=== PATIENT | female | born 1965 | race Caucasian/White ===

== ENCOUNTER 2016-10-26 09:55 | Day surgery (SDC) | payer OTHER ==
[2016-10-24 16:00] VITALS: BMI 26.1
[2016-10-26 10:10] VITALS: RESP 16
[2016-10-26 10:11] LABS: Glucose,Whole Blood 108 mg/dL (75-99)
[2016-10-26] MEDS ORDERED: LIDOCAINE 1% 20 ML VIAL (10MG/ML) FOR IV START INTRADERMA ONE (10:11)
[2016-10-26] MEDS ORDERED: LACTATED RINGERS 1,000 ML IV ONE (10:11)
[2016-10-26] MEDS ORDERED: IOHEXOL 180 MG/ML 1 ML ML ONE (10:33)
[2016-10-26] MEDS ORDERED: MIDAZOLAM 2 MG/2 ML VIAL ONE (10:33)
[2016-10-26] MEDS ORDERED: fentaNYL (PF) 50 MCG/ML 2 ML AMP ONE (10:33)
[2016-10-26] MEDS ORDERED: BUPIVACAINE (PF) 0.25% 30 ML VIAL ONE (10:33)
[2016-10-26] MEDS ORDERED: TRIAMCINOLONE ACETONIDE 40 MG/ML 1 ML VIAL ONE (10:33)
--- NOTE | 2016-10-26 10:53 | P.PCN ---
Date of Procedure: 10/26/16 Preoperative Diagnosis: The lumbar degenerative disc disease Lumbar postlaminectomy pain syndrome Lumbar neural foraminal stenosis Lumbar spondylosis without myelopathy Postoperative Diagnosis: Same as above Procedure(s) Performed: Lumbar epidural steroid injection under fluoroscopic guidance Anesthesia: MAC Surgeon: Dileep Fofana Pathology: none sent Condition: stable Disposition: PACU Description of Procedure: The patient was seen in preoperative holding area consent was obtained. The patient has more lower back pain pain and that's why I decided to do lumbar epidural steroid injection because of history of lumbar postlaminectomy pain syndrome lumbar degenerative disc disease and lumbar neural foraminal stenosis. The patient was brought into the procedure room and placed in prone position with one pillow beneath the abdomen to reduce lumbar lordosis. Skin was prepped with Betadine 3 and draped in a sterile manner. Lidocaine 1% was used to numb the skin up at the target point that was at the L4 5 level in the left paramedian approach. I used a 20-gauge 3-1/2 inch Touhy epidural needle with gaiv-tv-lwzhwmvihz to air to identify the epidural space. There was positive gvlw-wi-zwsaxqyexk to air at about 7.5 cm from skin negative aspiration for any CSF or blood I then injected 1 mL of Omnipaque which showed typical epidurogram with AP and lateral his fluoroscopy. After that I injected 80 mg of Kenalog +2 MLS of Marcaine 0.25% +4 mL of preservative free normal saline to a total volume of 7 MLS in epidural space. Patient tolerated procedure well.
[2016-10-26] MEDS ORDERED: IV FLUID CONTINUATION 1,000 ML IV ONE (11:01)
[2016-10-26 11:15] VITALS: BP 125/81; PULSE 79
[2016-10-26 11:25] LABS: Glucose,Whole Blood 116 mg/dL (75-99)
--- NOTE | 2016-10-26 11:55 | FL ---
Fluoroscopy HISTORY: Pain 6 seconds fluoroscopy time supplied to the referring clinician. 2 intraoperative C-arm images docume nt the procedure. See dictated report from anesthesia.
== END 2016-10-26 11:33 | disposition home or self-care (01) ==
LOC: ORPAIN 09:55
PROVIDERS: ATTEND Anesthesiology
DX: M51.36 Other intervertebral disc degeneration, lumbar region (principal); M47.816 Spondylosis without myelopathy or radiculopathy, lumbar region; M99.73 Connective tissue and disc stenosis of intervertebral foramina of lumbar region; M96.1 Postlaminectomy syndrome, not elsewhere classified; I10 Essential (primary) hypertension; E11.9 Type 2 diabetes mellitus without complications; Z88.2 Allergy status to sulfonamides
CPT/HCPCS: 62323; J2250; J3301; Q9965; J3010

== ENCOUNTER → 2017-01-18 | Outpatient (CLI) | payer OTHER ==
[2017-01-18 12:17] VITALS: BP 114/69; PULSE 102; RESP 14; TEMP 98.7
--- NOTE | 2017-01-19 07:56 | P.CONS ---
History of Present Illness - Reason for Consult Consult date: 01/18/17 - History of Present Illness This is follow visit for this 51 years old female with a chronic history of severe low back pain, most with lumbar degenerative disc disease and lumbar spondylosis, patient had poorly controlled diabetes, and she is currently complaining of increased low back pain with radiation to the lower extremities, and she is currently on medications Lyrica 150 3 times a day, methadone 5 mg twice a day and [place] 10/325 every 6 hours, she denies any side effect of the medication she denies any excessive drowsiness sleepiness and she reported current medication is not helping enough, she denies any change in the bowel movement or urination, no fever or night sweats, no motor or sensory deficits Past Medical History Past Medical History: COPD, Diabetes Mellitus, Fibromyalgia, GERD/Reflux, Hypertension, Osteoarthritis (OA), Thyroid Disorder Additional Past Medical History / Comment(s): NEUROPATHY BILATERAL FEET, - DEGENERATIVE DISC DISEASE NECK AND LOWER BACK, hiatal hernia, pt states she does not have high lipids-on mevacor as a preventative. History of Any Multi-Drug Resistant Organisms: MRSA Year Discovered:: 05/2016 MDRO Source:: rt great toe Past Surgical History: Adenoidectomy, Back Surgery, Bladder Surgery, Hysterectomy, Orthopedic Surgery, Tonsillectomy, Tubal Ligation Additional Past Surgical History / Comment(s): Debridement R foot, PICC line/ later removed, bladder suspension, exploratory laparotomy, rt great toe amputation, pins both feet, rt cataract Past Anesthesia/Blood Transfusion Reactions: No Reported Reaction Additional Past Anesthesia/Blood Transfusion Reaction / Comm: . Past Psychological History: No Psychological Hx Reported Additional Psychological History / Comment(s): . Smoking Status: Current every day smoker Past Alcohol Use History: None Reported Additional Past Alcohol Use History / Comment(s): SMOKER SINCE 1983-10/10 PPD Past Drug Use History: None Reported - Past Family History Mother Family Medical History: No Reported History Additional Family Medical History / Comment(s): Mother has back problems. She is 73 yrs old. Father Additional Family Medical History / Comment(s): at 26yrs old--accident at work Medications and Allergies Home Medications Medication Instructions Recorded Confirmed Type Ergocalciferol (Vitamin D2) 50,000 unit PO FR 02/07/14 01/18/17 History [Drisdol] Ipratropium [place] [Atrovent Hfa] 2 puff INHALATION Q6H PRN 02/07/14 01/18/17 History Loratadine-Pseudoeph 10-240 mg 1 tab PO DAILY 02/07/14 01/18/17 History [Claritin-D 24 Hour] Losartan/Hydrochlorothiazide 1 tab PO DAILY 02/07/14 01/18/17 History [Losartan-Hctz 100-25 mg Tab] Lovastatin [Mevacor] 20 mg PO HS 02/07/14 01/18/17 History Montelukast [Singulair] 10 mg PO HS 02/07/14 01/18/17 History busPIRone HCL [Buspar] 15 mg PO BID 02/07/14 01/18/17 History Insulin Glulisine [Apidra] 1 dose SQ DIRECTED PRN 06/04/14 01/18/17 History Levothyroxine Sodium [Levoxyl] 150 mcg PO DAILY 12/08/14 01/18/17 History Omeprazole [PriLOSEC] 20 mg PO AC-BRKFST 12/08/14 01/18/17 History Insulin Glargine [Lantus] 35 unit SQ 06/05/15 01/18/17 History Multivit-Min/Iron Fum/Folic AC 1 tab PO DAILY 09/18/15 01/18/17 History [Etxgk-Jpopkbk-Wmraryyp Tablet] Zinc 50 mg PO DAILY 09/18/15 01/18/17 History metFORMIN HCL [Glucophage] 250 mg PO QA 07/06/16 01/18/17 History Allergies Allergy/AdvReac Type Severity Reaction Status Date / Time Sulfa (Sulfonamide Allergy Rash/Hives Verified 01/18/17 12:07 Antibiotics) Physical Exam Vitals: Vital Signs Temp Pulse Resp BP Pulse Ox 01/18/17 12:11 98.7 F 102 H 14 114/69 99 Physical Examinations : 1-Constitutiona : Cooperative , not in acute distress . 2-HEENT : nech ; supple , no Lymphadenopathy , no Thyromegaly , normal thyroid size . eyes : no ptosis , no icterus, no photophobia . ENT : normal of hearing , normal oropharynx , no Thrush . 3- Respiratory : Chest clear to auscultations Bilaterally , no wheezing , no Rhonchi . 4- Cardiovascular : regular rate and rhythem , S1 , S2 , no S3 , no S4. 5- Gastrointestinal : abdomen soft no tenderness , bowel sounds positive all four quadrents , no organomegally . 6- Genitourinary : Defferred . 7- neurologic : Cranial nerve II to XII intact , no focal neurological deffecit . 8-psychatric : alert , oriented X 3 , appropriate affect , intact judgment and insight . 9-Lymphatic : no Lymphadenopathy . 10- musculoskeltal : exams of the cervical spine = normal motor stregnth in the upper extremities bilaterally . exams of the Lumber spine = normal moter stegnth lower extremities ,thigh and legs .5/5 deep tendon reflexes : normal Knee Jerk , normal ankle Jerk . positive lumber facet Loading Test strait leg raising test positive at 30 degree , RT ,LT , Fabere test positive RT and positive LT . Assessment and Plan Plan: Assessment and plan = - Chronic low back pain secondary to lumbar degenerative disc disease , lumbar spondylosis with facet arthropathy without myelopathy , -chronic and current use of high-risk medication (Opioids). The patient was counseled about risk of opioid use, psychological risk associated with opioids discussed with the patient, body mass index and exercise. Patient signed the narcotic agreement , and was orally counseled not to overuse , abuse , divert, or sell medications ,and take them as prescribed only , and the patient was counseled against driving and while you are using the narcotic medication also not to use alcohol or any illicit drugs and the patient verbalized understanding that lack of compliance and could result in failure to renew narcotics prescriptions and possible discharge from the clinic - diagnoses, prognosis, and treatment options including but not limited to physical therapy, surgical interventions, interventional therapies and medication management including narcotics and adjuvant medication were discussed with the patient and all questions answered to the patient's satisfaction. -medication refile =1-lyrica 150 mg 3 times a day 2-methadone 5 mg twice a day 3-[place] 10/325 every 6 hours -procedure= referred patient to have MRI of the lumbar spine, reevaluated ,if there is any new etiology causing her symptoms
== END | disposition home or self-care (01) ==
LOC: PNWHC3 11:49
PROVIDERS: ATTEND Specialist
DX: M51.36 Other intervertebral disc degeneration, lumbar region (principal); M47.816 Spondylosis without myelopathy or radiculopathy, lumbar region; M46.96 Unspecified inflammatory spondylopathy, lumbar region; J44.9 Chronic obstructive pulmonary disease, unspecified; E11.9 Type 2 diabetes mellitus without complications; K21.9 Gastro-esophageal reflux disease without esophagitis; I10 Essential (primary) hypertension; M79.7 Fibromyalgia; F17.200 Nicotine dependence, unspecified, uncomplicated; Z79.899 Other long term (current) drug therapy; Z79.4 Long term (current) use of insulin; Z79.891 Long term (current) use of opiate analgesic
CPT/HCPCS: 99211

== ENCOUNTER → 2017-01-30 | Outpatient (CLI) | payer OTHER ==
--- NOTE | 2017-01-30 20:34 | MR ---
EXAMINATION TYPE: MR lumbar spine wo con DATE OF EXAM: 01/30/2017 7:39 PM COMPARISON: NONE HISTORY: LBP S/P fall 20 years ago, surgery 2004. Herniated disc and spondylosis per order. TECHNIQUE: Multiplanar, multisequence imaging of the lumbar spine is performed without IV contrast. FINDINGS: Sagittal images of the lumbar spine show vertebral body heights and alignment to appear sat isfactory. There is multilevel disc desiccation. There is advanced disc space narrowing L5-S1 level. There is mild disc space narrowing L4-L5 level there is moderate to advanced disc space narrowing wit h moderate spurring anterior T12-L1 level. Multilevel posterior disc herniations are seen on sagittal images effacing anterior thecal sac most prominent at L4-L5 and L5-S1 levels. The conus medullaris i s normal in position and signal ending at superior L1 vertebral body level. There is some heterogeneo us diminished T1 and increased T2 signal consistent with Modic type I degenerative change involving a nterior T12-L1 endplates and L5-S1 endplates. Mild to moderate multilevel anterior spurring is presen t. There is hemangioma involving the left inferior T1 vertebra on sagittal image 8. Axial images at the T12-L1 level shows mild to moderate broad disc bulge with left lateral disc protr usion component. There is mild effacement anterior thecal sac on axial image 28. Bilateral neural for malissa are patent. Axial images at the L1-L2 level show mild broad disc bulge minimally effacing the anterior thecal sac . Bilateral neural foramina are patent. Axial images at L2-L3 level show mild broad disc bulge with left lateral disc protrusion component. T here is mild effacement anterior thecal sac. Mild facet degenerative changes are present bilaterally at this level mildly effacing posterior lateral thecal sac. Bilateral neural foramina remain patent. Axial images at L3-L4 level show mild broad disc bulge mildly effacing anterior thecal sac. There is mild facet degenerative changes and ligamentum flavum hypertrophy. Bilateral neural foramina remain p atent. Axial images at L4-L5 level show moderate to severe facet degenerative changes and ligamentum flavum hypertrophy with some effacement the posterior lateral thecal sac, right greater than left on axial i mage 8. There is moderate broad-based posterior disc protrusion effacing anterior thecal sac. There i s moderate to severe right and mild to moderate left-sided neural foraminal narrowing. Encroachment o n right L4 nerve is suspected on sagittal image 13. Axial images at L5-S1 level show moderate facet degenerative changes bilaterally, left greater than r ight. There is broad disc bulge seen. There is mild effacement anterior thecal sac on axial image 3. There is severe left-sided and moderate right-sided neural foraminal narrowing with encroachment on l eft L5 nerve suspected on sagittal image 5 and 6. Paraspinal muscle bulk is fairly well preserved. IMPRESSION: Multilevel degenerative changes in the lumbar spine most prominent at L4-L5 and L5-S1 lev els as detailed above. There is moderate to severe right-sided neural foraminal narrowing L4-L5 level with suspected encroachment on right L4 nerve and severe left-sided neural foraminal narrowing L5-S1 level with encroachment on left L5 nerve.
== END | disposition home or self-care (01) ==
LOC: RADMRIMAIN 18:52
PROVIDERS: ATTEND Specialist
DX: M51.26 Other intervertebral disc displacement, lumbar region (principal); M47.16 Other spondylosis with myelopathy, lumbar region; M48.07 Spinal stenosis, lumbosacral region
CPT/HCPCS: 72148

== ENCOUNTER → 2017-02-15 | Outpatient (CLI) | payer OTHER ==
[2017-02-15 14:13] VITALS: BP 117/69; PULSE 102; RESP 18
--- NOTE | 2017-02-16 15:01 | P.PN ---
Subjective This is follow-up visit for this patient with a history of severe and chronic low back pain secondary to lumbar degenerative disc diseases , lumbar spondylosis with facet arthropathy, she is complaining of increased the low back pain, and patient had MRI of the lumbar spine recently and she is back, to discuss the results of the MRI of the lumbar spine denies, any motor or sensory deficit ,she denies any changes in the bowel movements or urination and she has no motor or sensory deficit, and is currently on pain medications 1-methadone 5 mg twice a day 2-norco 10/325 every 6 hours 3- lyrica 150 mg every 8 hours Patient denies any side effects of the medication, denies excessive drowsiness or sleepiness, denies suicidal ideation, and reports that the current pain medication is NOT helping To control the pain and improve activity of daily living Patient denies any motor or sensory deficit , patient denies any fever or night sweats, denies any change in the bowel movements or urination Physical Examinations : 1-Constitutiona : Cooperative , not in acute distress . 2-HEENT : nech ; supple , no Lymphadenopathy , no Thyromegaly , normal thyroid size . eyes : no ptosis , no icterus, no photophobia . ENT : normal of hearing , normal oropharynx , no Thrush . 3- Respiratory : Chest clear to auscultations Bilaterally , no wheezing , no Rhonchi . 4- Cardiovascular : regular rate and rhythem , S1 , S2 , no S3 , no S4. 5- Gastrointestinal : abdomen soft no tenderness , bowel sounds positive all four quadrents , no organomegally . 6- Genitourinary : Defferred . 7- neurologic : Cranial nerve II to XII intact , no focal neurological deffecit . 8-psychatric : alert , oriented X 3 , appropriate affect , intact judgment and insight . 9-Lymphatic : no Lymphadenopathy . 10- musculoskeltal : exams of the Lumber spine = motor strength lower extremities ,thigh and legs .5/5 deep tendon reflexes : normal Knee Jerk , normal ankle Jerk . lumber facet Loading Test positive strait leg raising test positive at 30 degree , RT ,LT , Fabere test positive RT and positive LT . Range of motion: Range of motion in flexion of the lumbar spine 30 degrees Range of motion range of motion of extension of the lumbar spine 10 Sever tenderness over the Sacroiliac joint on the Right , and Left side MRI = lumbar spine done which showed lumbar degenerative disc disease lumbar spondylosis and lumbar foraminal stenosis Assessment and plan = - Chronic low back pain secondary to lumbar degenerative disc disease , lumbar spondylosis with facet arthropathy without myelopathy , - chronic and current use of high-risk medication (Opioids). The patient was counseled about risk of opioid use, psychological risk associated with opioids and was orally counseled to not overuse , divert,or sell dictations to take medications as prescribed only , and to restore medication in safe location , and the patient counseled against driving while using narcotic medications, and also not to use alcohol or any illicit recreational drugs, the patient's verbalized understanding that the lack of compliance will result in failure to renew narcotic prescription and possible discharge from the clinic - diagnoses, prognosis, and treatment options including but not limited to physical therapy, surgical interventions, interventional therapies , and medication management including narcotics and adjuvant medication were discussed with the patient and all answered. Patient would be good candidate to have diagnostic medial branch block without steroid , L3-4 /L4 5/L5-S1 , and if she had good results after 2 date last medial branch block and she would be good candidate to have the radiofrequency ablation of the medial branch lumbar area, ,, also prescription refill for methadone 5 mg twice a day dispense 60 with 1 refill, , [place] 10/325 every 6 hours as 120 with one refill, Lyrica 150 mg every 8 hours dispense 90 with 1 refill Objective - Vital Signs Vital signs: Vital Signs Temp Pulse 102 H 02/15/17 14:09 Resp 18 02/15/17 14:09 BP 117/69 02/15/17 14:09 Pulse Ox 96 02/15/17 14:09 Intake & Output 02/15/17 02/16/17 02/16/17 18:59 06:59 18:59 Weight 80.739 kg
== END | disposition home or self-care (01) ==
LOC: PNWHC3 13:19
PROVIDERS: ATTEND Specialist
DX: M51.36 Other intervertebral disc degeneration, lumbar region (principal); M47.816 Spondylosis without myelopathy or radiculopathy, lumbar region; M46.86 Other specified inflammatory spondylopathies, lumbar region
CPT/HCPCS: 99211

== ENCOUNTER 2017-03-14 06:47 | Day surgery (SDC) | payer OTHER ==
[2017-03-13 08:33] VITALS: BMI 27.0
[~2017-03-14 06:47] MED LIST: LACTATED RINGERS 1,000 ML IV SCH
[2017-03-14 07:31] VITALS: BP 121/63; PULSE 78; RESP 18; TEMP 98.4
[2017-03-14 07:48] LABS: Glucose,Whole Blood 510 mg/dL (75-99)
--- NOTE | 2017-03-14 08:03 | P.PN ---
Subjective Principal diagnosis: This is a follow-up visit for this 51 years old female, scheduled to have bilateral medial branch block under fluoroscopy guidance, in the preop holding area we found that the patient's blood sugar is 510, for this reason I discussed with the patient and she needs to go to the emergency room to be admitted, as this is extremely high blood sugar and is dangerous could affect her life, she declined and she reported that her blood sugar always fluctuate up ,and down ,and she used to go to the emergency room, Objective - Vital Signs Vital signs: Vital Signs Temp 98.4 F 03/14/17 07:30 Pulse 78 03/14/17 07:30 Resp 18 03/14/17 07:30 BP 121/63 03/14/17 07:30 Pulse Ox 100 03/14/17 07:30 Intake & Output 03/13/17 03/14/17 03/14/17 18:59 06:59 18:59 Weight 80.739 kg - Exam Physical Examinations : 1-Constitutiona : Cooperative , not in acute distress . 2-HEENT : nech ; supple , no Lymphadenopathy , normal thyroid size . eyes : no ptosis , no icterus, no photophobia . ENT : normal of hearing , normal oropharynx , no Thrush . 3- Respiratory : Chest clear to auscultations Bilaterally , no wheezing , no Rhonchi . 4- Cardiovascular : regular rate and rhythem , S1 , S2 , no S3 , no S4. - Labs Labs: Abnormal Lab Results - Last 24 Hours (Table) 03/14/17 Range/Units 07:40 POC Glucose (mg/dL) 510 H (75-99) mg/dL Assessment and Plan Plan: Assessment and plan= -chronic low back pain secondary to lumbar degenerative disc disease , lumbar spondylosis with lumbar facet arthropathy without myelopathy, she was scheduled to have bilateral medial branch block but her blood sugar was 510 , procedure was cancelled , Discussed with the patient that she needs to be to the hospital to treat her hyperglycemia, explaining to her that she could go to: Any Time, she was fully aware of the risk and she understood the seriousness of the situation, she declined to be admitted, given If she were refilled for her on methadone 5 mg twice a day, local 10/325 every 6 hours and Lyrica 50 mg every 8 hours, lyrica 150 mg nightly 8 hours ,and she will be scheduled to have facet medial branch block of the neurological under control, she was instructed to follow with her primary care and tail dogger to control her blood sugar Time with Patient: Less than 30
== END 2017-03-14 08:02 | disposition home or self-care (01) ==
LOC: ORPAIN 06:47
PROVIDERS: ATTEND Specialist
DX: G89.29 Other chronic pain (principal); M51.36 Other intervertebral disc degeneration, lumbar region; M46.96 Unspecified inflammatory spondylopathy, lumbar region; M47.816 Spondylosis without myelopathy or radiculopathy, lumbar region; R73.9 Hyperglycemia, unspecified; Z53.09 Procedure and treatment not carried out because of other contraindication

== ENCOUNTER 2017-05-11 09:30 | Day surgery (SDC) | payer OTHER ==
[2017-05-10 11:57] VITALS: BMI 26.2
[2017-05-11 09:42] VITALS: RESP 16; TEMP 97.6
[2017-05-11 09:51] LABS: Glucose,Whole Blood 212 mg/dL (75-99)
[2017-05-11] MEDS ORDERED: LACTATED RINGERS 1,000 ML IV ONE (09:51)
[2017-05-11] MEDS ORDERED: LACTATED RINGERS 1,000 ML IV SCH (10:00)
--- NOTE | 2017-05-11 10:27 | P.PCN ---
Date of Procedure: 05/11/17 Preoperative Diagnosis: Postoperative Diagnosis: Procedure(s) Performed: Implants: Surgeon: Bg Bullard Pathology: none sent Condition: stable Disposition: PACU Indications for Procedure: Operative Findings: Description of Procedure: PREOPERATIVE DIAGNOSIS: L3-L4, L4-L5, and L5-S1 spondylosis without myelopathy and facet arthropathy. POSTOPERATIVE DIAGNOSIS: L3-L4, L4-L5, and L5-S1 spondylosis without myelopathy and facet arthropathy. PROCEDURE DESCRIPTION: Patient presents for L3-L4, L4-L5 and L5-S1 diagnostic medial branch blocks under fluoroscopic guidance. The procedure is performed using fluoroscopic guidance during needle placement to assure proper position and maximize safety. ANESTHESIA: Local with 1% lidocaine; conscious sedation EBL: Minimal PROCEDURE INDICATION: Patient with lumbar facet arthropathy signs and symptoms, here for diagnostic medial branch block. Pt does not take any blood thinning medications. PROCEDURE DESCRIPTION: The patient was seen and identified in the preoperative area. Risks, benefits, complications, and alternatives were discussed with the patient (including but not limited to incomplete pain relief, bleeding, infection, nerve damage, and allergies to medications), the patient agreed to proceed with the procedure and signed the consent after all questions were answered. Patient was taken to the OR and time out was completed to verify proper patient, position, laterality of pain, and allergies. Pt was placed in the prone position and a pillow was placed under the abdomen to reduce lumbar lordosis. The lumbosacral area was prepped and draped in the usual sterile fashion. Using oblique fluoroscopy, the eye of the "Odilon dog" of right L4 vertebral body, which corresponds to the path of the medial branch originating from the level above, which is L3 in this case, was identified. Subsequently, a 22-gauge 3.5-inch spinal needle was inserted under fluoroscopic guidance toward the eye of the "Odilon dog" of the right L4 vertebral body, corresponding to the junction of the superior articular process and the transverse process of the pedicle of the same level. After needle tip confirmation on lateral view and after negative aspiration for CSF and blood and without paresthesias, 1 mL of a 6 ml solution of 0.5% preservative-free bupivacaine was injected (NO STEROIDS DUE TO PATIENT'S BRITTLE DIABETES). Subsequently the needle was withdrawn intact and the same procedure was repeated for the right L4, right L5, left L3, left L4, and left L5 medial branches which together with right L3 medial branch correspond to the sensory innervation of the bilateral L3-L4, L4-L5, and L5-S1 facet joints. Needle was withdrawn intact after each injection. At the end of the procedure, the skin was cleansed and bandages were applied. COMPLICATIONS: None. DISPOSITION/PLAN: The patient taken to the recovery area after the procedure in a stable condition for observation. Patient was reexamined prior to discharge and there were no issues and she had > 50% pain relief immediately after the procedure. Patient was discharged home, accompanied by an adult, after meeting discharged criteria. Discharge instructions were give to the patient by the staff. Patient was specifically instructed not to drive today and to rest for the rest of the day. Repeat MBB in 4-6 weeks.
[2017-05-11] MEDS ORDERED: IV FLUID CONTINUATION 1,000 ML IV ONE (10:28)
--- NOTE | 2017-05-11 10:34 | FL ---
Fluoroscopy HISTORY: Pain 14 seconds fluoroscopy time supplied to the referring clinician. 4 intraoperative C-arm images docum ent the procedure. See dictated report from anesthesia.
[2017-05-11 10:44] VITALS: BP 123/74; PULSE 70
[2017-05-11 11:00] LABS: Glucose,Whole Blood 160 mg/dL (75-99)
== END 2017-05-11 11:08 | disposition home or self-care (01) ==
LOC: ORPAIN 09:30
DX: G89.29 Other chronic pain (principal); M47.816 Spondylosis without myelopathy or radiculopathy, lumbar region; M47.817 Spondylosis without myelopathy or radiculopathy, lumbosacral region; M46.96 Unspecified inflammatory spondylopathy, lumbar region; E10.9 Type 1 diabetes mellitus without complications; I10 Essential (primary) hypertension; Z88.2 Allergy status to sulfonamides
CPT/HCPCS: 64493; 64494; 64495; 99152; J2250

== ENCOUNTER 2017-06-08 06:30 | Day surgery (SDC) | payer OTHER ==
[2017-06-08 06:58] VITALS: RESP 16; TEMP 97.7
[2017-06-08] MEDS ORDERED: LACTATED RINGERS 1,000 ML IV ONE ×2 (07:09→07:53)
[2017-06-08 07:10] LABS: Glucose,Whole Blood 100 mg/dL (75-99)
[2017-06-08] MEDS ORDERED: LIDOCAINE 1% 20 ML VIAL (10MG/ML) FOR IV START INTRADERMA ONE (07:10)
[2017-06-08] MEDS ORDERED: IV FLUID CONTINUATION 1,000 ML IV ONE (07:30)
--- NOTE | 2017-06-08 07:36 | P.PCN ---
Date of Procedure: 06/08/17 Preoperative Diagnosis: Postoperative Diagnosis: Procedure(s) Performed: PREOPERATIVE DIAGNOSIS: 1- Lumbar Degenerative Disc Diseases 2-Lumbar spondylosis with Facet arthropathy without myelopathy. POSTOPERATIVE DIAGNOSIS: 1-Lumber Degenerative Disc Diseases 2-Lumbar spondylosis with Facet arthropathy without myelopathy. PROCEDURE 1. Lumbar epidural steroid injection under fluoroscopic guidance at the L5-S1 level. 2. Lumbar epidurogram. ANESTHESIA: Local with 1% lidocaine 3 ml and IV sedation with Versed 2 mg , and fentanyle 100 Mcg EBL: Minimal PROCEDURE INDICATION: The patient with low back pain and radiculitis symptoms unresponsive to conservative treatment. Fluoroscopy was used to optimize visualization of the needle placement and to maximize safety, recently we have done diagnostic medial branch block patient lumbar area , she reported ,that she did not benefit from it ,for this reason we cannot Tarvin the discogenic component of the low back pain by the length lumbar epidural steroid injection. PROCEDURE DESCRIPTION / TECHNIQUE: The patient was seen and identified in the preoperative area. Risks, benefits , complications including but not limited to infections ,bleeding ,allergic reaction to the medications ,nerve damage and not complete pain releife , and alternatives were discussed with the patient. The patient agreed to proceed with the procedure and signed the consent. IV was started, and vital signs were stable. Patient was taken to the OR and time out was completed. The patient was placed in the prone position on procedure table and a pillow was placed under the abdomen to reduce lumbar lordosis. The lumbosacral area was prepped and draped in the usual sterile fashion.ere closely monitored during the procedure. Conscious sedation was used during the procedure to decrease patients anxiety. Vital signs was monitered during the entire procedure. Using anterior-posterior fluoroscopy, the L5-S1 interlaminar space was identified and the skin over this site was marked and then infiltrated with 1% lidocaine subcutaneously. Subsequently, a 20-gauge Tuohy epidural needle was inserted and advanced toward the epidural space using the ``Loss of resistance technique and guided by AP and lateral fluoroscopy. The correct needle position in the epidural space was verified with the injection of 2 mL of the water soluble contrast dye Omnipaque 180 contrast and observing an excellent epidurogram with the epidural spread of the dye, after negative aspiration for blood and CSF and in the absence of paresthesias. Again after negative aspiration, a 6 ml mixture containing 10 mg of Dexamethasone and 2 ml of preservative free Normal Saline, and 2 ml of preservative free lidocaine 1% solution was injected and a washout of epidurogram was seen. Needle was withdrawn intact, skin was cleansed, and bandages were applied. COMPLICATIONS: None DISPOSITION / PLANS: The patient was placed in a supine position and transferred to the recovery area in a stable condition for observation. There was no evidence of lower extremity motor or sensory deficit after the procedure. Patient was discharged from the recovery room after meeting discharge criteria. Home discharge instructions were given to the patient by the staff. The patient was reexamined prior to discharge. The patient will schedule a follow up in the clinic in 2-4 weeks. Implants: Indications for Procedure: Operative Findings: Description of Procedure:
--- NOTE | 2017-06-08 07:41 | FL ---
FLUOROSCOPY 3 seconds of fluoroscopy time were utilized during lumbar epidural injection. 1 images document the p rocedure.
[2017-06-08 07:51] LABS: Glucose,Whole Blood 68 mg/dL (75-99)
[2017-06-08 08:05] VITALS: BP 122/75; PULSE 78
[2017-06-08 08:14] LABS: Glucose,Whole Blood 60 mg/dL (75-99)
[2017-06-08 08:30] LABS: Glucose,Whole Blood 54 mg/dL (75-99)
[2017-06-08 08:30] LABS: Glucose,Whole Blood 50 mg/dL (75-99)
== END 2017-06-08 08:49 | disposition home or self-care (01) ==
LOC: ORPAIN 06:30
PROVIDERS: ATTEND Specialist
DX: M51.06 Intervertebral disc disorders with myelopathy, lumbar region (principal); M47.16 Other spondylosis with myelopathy, lumbar region; M46.96 Unspecified inflammatory spondylopathy, lumbar region; I10 Essential (primary) hypertension; E11.9 Type 2 diabetes mellitus without complications; E03.9 Hypothyroidism, unspecified; G62.9 Polyneuropathy, unspecified; K21.9 Gastro-esophageal reflux disease without esophagitis; Z88.2 Allergy status to sulfonamides
CPT/HCPCS: 62323; J2250; J1100; Q9965; J3010; 99152

== ENCOUNTER → 2017-07-06 | Outpatient (CLI) | payer OTHER ==
[2017-07-06 14:04] VITALS: BP 154/72; PULSE 70; RESP 16; TEMP 98.2
--- NOTE | 2017-07-06 14:32 | P.CONS ---
History of Present Illness - Reason for Consult Consult date: 07/06/17 - History of Present Illness Mrs. follow-up visit for this 52 years old female with a chronic history of severe low back pain secondary to lumbar spondylosis, lumbar bulging disc disease we have done diagnostic medial branch block lumbar area patient reported that she had the more than 50% improvement lasted for a few hours, later on patient was scheduled to have lumbar epidural steroid injections, and patient reported that she had 50% improvement of her low back pain and improvement was 50% or more, but some blood sugar increased to more than 500, patient continued to take insulin and she is currently had fluctuation in her blood sugar control, currently she reported that the intensity of the pain is 8/ 10 and increases with any activity, she denies any motor or sensory deficit and she is using methadone 5 mg twice a day and she uses [place] 10/325 every 6 hours and Lyrica 150 mg every 8 hours, denies any side effect of the medication she denies any excessive drowsiness sleepiness, and she reports a current pain medication helping to control her pain Past Medical History Past Medical History: COPD, Diabetes Mellitus, Fibromyalgia, GERD/Reflux, Hypertension, Osteoarthritis (OA), Thyroid Disorder Additional Past Medical History / Comment(s): NEUROPATHY BILATERAL FEET, - DEGENERATIVE DISC DISEASE NECK AND LOWER BACK, hiatal hernia, pt states she does not have high lipids-on mevacor as a preventative." 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 Past Psychological History: No Psychological Hx Reported Additional Psychological History / Comment(s): . Smoking Status: Current every day smoker Past Alcohol Use History: None Reported Additional Past Alcohol Use History / Comment(s): SMOKER SINCE 1983-10/10 PPD Past Drug Use History: None Reported - Past Family History Mother Family Medical History: No Reported History Additional Family Medical History / Comment(s): Mother has back problems. She is 73 yrs old. Father Additional Family Medical History / Comment(s): at 26yrs old--accident at work Medications and Allergies Home Medications Medication Instructions Recorded Confirmed Type Ipratropium Gorman [Atrovent Hfa] 2 puff INHALATION Q6H PRN 02/07/14 07/06/17 History Loratadine-Pseudoeph 10-240 mg 1 tab PO DAILY 02/07/14 07/06/17 History [Claritin-D 24 Hour] Losartan/Hydrochlorothiazide 1 tab PO DAILY 02/07/14 07/06/17 History [Losartan-Hctz 100-25 mg Tab] Lovastatin [Mevacor] 20 mg PO HS 02/07/14 07/06/17 History Montelukast [Singulair] 10 mg PO HS 02/07/14 07/06/17 History busPIRone HCL [Buspar] 15 mg PO BID 02/07/14 07/06/17 History Insulin Glulisine [Apidra] 10 unit SQ BID PRN 06/04/14 07/06/17 History Omeprazole [PriLOSEC] 20 mg PO AC-BRKFST 12/08/14 07/06/17 History Insulin Glargine [Lantus] 27 unit SQ HS 06/05/15 07/06/17 History Multivit-Min/Iron Fum/Folic AC 1 tab PO DAILY 09/18/15 07/06/17 History [Zthux-Mlgjprb-Tyfupigv Tablet] Zinc 50 mg PO DAILY 09/18/15 07/06/17 History metFORMIN HCL [Glucophage] 500 mg PO QAM 07/06/16 07/06/17 History Famotidine 40 mg PO DAILY 06/08/17 07/06/17 History HYDROcodone/APAP 10-325MG [[place] 1 tab PO Q6H PRN #120 tab 07/06/17 Rx 10-325] HYDROcodone/APAP 10-325MG [[place] 1 tab PO QID PRN #120 tab 07/06/17 Rx 10-325] Levothyroxine Sodium [Levoxyl] 200 mcg PO DAILY 07/06/17 07/06/17 History Methadone HCl [Dolophine HCl] 5 mg PO Q12HR #60 tab 07/06/17 Rx Methadone [Dolophine] 5 mg PO BID #60 tab 07/06/17 Rx Pregabalin [Lyrica] 150 mg PO Q8HR #90 capsule 07/06/17 Rx Allergies Allergy/AdvReac Type Severity Reaction Status Date / Time Sulfa (Sulfonamide Allergy Rash/Hives Verified 07/06/17 13:52 Antibiotics) Physical Exam Vitals: Vital Signs Temp Pulse Resp BP 07/06/17 13:55 98.2 F 70 16 154/72 Intake and Output 07/05/17 07/06/17 07/06/17 22:59 06:59 14:59 Other: Weight 77.111 kg Patient Weight 07/07/17 06:59 Weight 77.111 kg Physical Examinations : 1-Constitutiona : Cooperative , not in acute distress . 2-HEENT : nech ; supple , no Lymphadenopathy , normal thyroid size . eyes : no ptosis , no icterus, no photophobia . ENT : normal of hearing , normal oropharynx , no Thrush . 3- Respiratory : Chest clear to auscultations Bilaterally , no wheezing , no Rhonchi . 4- Cardiovascular : regular rate and rhythem , S1 , S2 , no S3 , no S4. 5- Gastrointestinal : abdomen soft no tenderness , bowel sounds positive all four quadrents , no organomegally . 6- Genitourinary : Defferred . 7- neurologic : Cranial nerve II to XII intact , no focal neurological deffecit . 8-psychatric : alert , oriented X 3 , appropriate affect , intact judgment and insight . 9-Lymphatic : no Lymphadenopathy . 10- musculoskeltal : , Lumber spine = normal moter stegnth lower extremities ,thigh and legs .5/5 deep tendon reflexes : normal Knee Jerk , normal ankle Jerk . positive lumber facet Loading Test strait leg raising test positive at 30 degree , RT ,LT , Fabere test positive RT and positive LT . Assessment and Plan Plan: Assessment and plan= chronic low back pain secondary to lumbar degenerative disc disease , lumbar spondylosis with lumbar facet arthropathy , chronic and current use of high-risk medication (opioids) Patient denies any side effects of the current pain medication and the current treatment/medication ML and the patient to do activity of daily living , Diagnoses, prognosis, treatment options, including but not limited to physical therapy, medication management, interventional therapies, and surgery, were discussed with the patient All the questions answered Patient signed the narcotic agreement, and he was orally counseled, not to overuse, not to abuse, not to Divert , not tp sell pain medication, and to take it as prescribed only, Patient was counseled not to drive or operate heavy equipment while using narcotic medication, and advised not to use alcohol or any Illicit drugs while using the narcotis, the patient's verbalized understanding that lack of compliance with any of the above instructions and will likely to cause discharge from the pain service, not to renew his narcotic prescriptions Medication managements= patient will be given prescription refills for 1-Lyrica 50 mg every 8 hours dispense 90 with 1 refill 2-methadone 5 mg twice a day and dispense 60 with 1 refill 3-[place] 10/325 every 6 hours dispense 120 with one refill Interventional pain management=patient will be scheduled to have repeat diagnostic medial branch block lumbar area L3-4 /L4 5/L5-S1 , the procedure will be done without any steroid if she gets more than 50% improvement in we will proceed with a radiofrequency ablation of the medial branch lumbar area , Time with Patient: Less than 30
== END | disposition home or self-care (01) ==
LOC: PNWHC3 13:11
PROVIDERS: ATTEND Specialist
DX: M51.36 Other intervertebral disc degeneration, lumbar region (principal); M47.816 Spondylosis without myelopathy or radiculopathy, lumbar region; M46.86 Other specified inflammatory spondylopathies, lumbar region
CPT/HCPCS: 99211

== ENCOUNTER 2017-08-29 07:30 | Day surgery (SDC) | payer OTHER ==
[2017-08-29] MEDS ORDERED: LACTATED RINGERS 1,000 ML IV SCH (08:00)
[2017-08-29] MEDS ORDERED: DEXTROSE 50%-WATER 50 ML SYRINGE IVP ONE (08:15)
[2017-08-29 08:26] VITALS: TEMP 97.5
--- NOTE | 2017-08-29 08:31 | P.PN ---
Progress Note - Text Progress Note Date: 08/29/17 Patient seen and examined in preoperative area today with plan for bilateral lumbar medial branch block, blood sugar 32. Review of patient's chart demonstrates numerous missed appointments for procedures, required procedure cancellations due to blood sugar > 700, and stable opioid dose. I had initially thought that pursuing medial branch blocks and RFA without steroids was a possibility, but the patient's diabetes is extremely brittle and with her very poorly controlled sugar, I am concerned that even the sympathetic response from an injection may potentially launch her blood sugar out of control. As the patient is currently stable on the dose of her opioids and Lyrica, I will provide one month's worth of these medications and the patient can return to see either her PCP Dr. Arrington or Dr. Menjivar for further non-interventional pain management. These doses of medication are stable and within the CDC recommendations for chronic nonmalignant pain, and given the patient's low risk for adverse events, can thus be written by a non-specialist; the patient is reliable and appears unlikely to abuse or divert medications. Please call our clinic with any further questions.
[2017-08-29] MEDS ORDERED: IV FLUID CONTINUATION 800 ML IV ONE (08:41)
[2017-08-29 08:49] VITALS: BP 139/75; PULSE 70; RESP 18
[2017-08-29 08:57] LABS: Glucose,Whole Blood 84 mg/dL (75-99)
[2017-08-29 14:22] LABS: Glucose,Whole Blood 32 mg/dL (75-99)
[2017-08-29 14:22] LABS: Glucose,Whole Blood 101 mg/dL (75-99)
== END 2017-08-29 09:05 | disposition home or self-care (01) ==
LOC: ORPAIN 07:30
PROVIDERS: ATTEND Anesthesiology
DX: G89.29 Other chronic pain (principal); E16.1 Other hypoglycemia; Z88.2 Allergy status to sulfonamides

== ENCOUNTER → 2018-03-19 | Outpatient (CLI) | payer OTHER ==
--- NOTE | 2018-03-20 03:01 | MR ---
EXAMINATION TYPE: MR lumbar spine wo/w con DATE OF EXAM: 03/19/2018 COMPARISON: 01/30/2017 HISTORY: Back pain for 15 years TECHNIQUE: Multiplanar, multisequence images of the lumbar spine were acquired utilizing 7.5 mL intravenous gado linium contrast. The lumbar vertebra have normal alignment. There is narrowing and decreased signal in the disks at L4 -5 and L5-S1. There are small posterior lumbar disc herniations at L4-5 L5-S1. There is some lateral recess stenosis due to facet arthropathy and ligamentum flavum thickening at L4-5. There is no lumbar paraspinal mass. There is no compression fracture. There is bilateral narrowing of the neural forami na at L4-5 due to the disc space narrowing and facet arthropathy. I see no pathologic enhancement. IMPRESSION: Spondylotic changes in the lower lumbar spine. L4-5 disc herniation is stable compared to old exam. L 5-S1 disc herniation is slightly decreased in size compared to old exam and consistent with desiccati on. No fracture. Mild lateral recess stenosis at L4-5.
== END | disposition home or self-care (01) ==
LOC: RADMRIMAIN 19:53
PROVIDERS: ATTEND Psychiatry & Neurology Neurology
DX: M48.061 Spinal stenosis, lumbar region without neurogenic claudication (principal); M51.27 Other intervertebral disc displacement, lumbosacral region; M47.816 Spondylosis without myelopathy or radiculopathy, lumbar region; M54.5 Low back pain
CPT/HCPCS: 82565; 72158; 36415; A9581

== ENCOUNTER → 2018-11-23 | Day surgery (SDC) | payer BC, OTHER ==
[2018-11-22 10:01] VITALS: BMI 22.0
[~2018-11-23] MED LIST changes: +BUPIVACAIN-EPI 0.5%-1:200,000 30 ML VIAL SQ ONE; +DEXAMETHASONE SOD PHOSPHATE 10 MG/ML 1 ML VIAL IV ONE; +HYDROmorphone (PF) 1 MG/ML ONE; +HYDROmorphone 0.5 MG/0.5 ML SYRINGE IVP PRN; +INSULIN ASPART (NovoLOG) 100 UNIT/ML VIAL SQ ONE; +KETOROLAC 30 MG/ML 1 ML VIAL ONE; +LACTATED RINGERS 1,000 ML IV ONE; +LIDOCAINE 1% 20 ML VIAL (10MG/ML) FOR IV START INTRADERMA ONE; +LIDOCAINE 1% INJ 10MG/ML (20 ML MDV) ONE; +MIDAZOLAM (PF) 2 MG/2 ML VIAL IV PRN; +MIDAZOLAM 2 MG/2 ML VIAL ONE; +ONDANSETRON 4 MG/2 ML VIAL IVP ONE; +ONDANSETRON 4 MG/2 ML VIAL ONE; +PROPOFOL 10 MG/ML 20 ML VIAL IV ONE; +ROCURONIUM BROMIDE 10 MG/ML 10 ML VIAL IV ONE; +ROPIVACAINE 5 MG/ML 30 ML VIAL ONE; +SCOPOLAMINE 1.5MG/72HR PATCH TRANSDERM ONE; +SODIUM CHLORIDE 0.9% 50 ML with ceFAZolin 2,000 MG IV ONE; +SUCCINYLCHOLINE CHLORIDE 100 MG/5 ML SYR IV ONE; +ceFAZolin IN SWFI 2 GM/20 ML SYRINGE IVP ONE; +fentaNYL (PF) 50 MCG/ML 2 ML AMP IV ONE; +fentaNYL (PF) 50 MCG/ML 2 ML AMP ONE
[2018-11-23 14:55] LABS: Glucose,Whole Blood 139 mg/dL (75-99)
[2018-11-23 15:22] LABS: Glucose,Whole Blood 141 mg/dL (75-99)
[2018-11-23 16:17] LABS: Glucose,Whole Blood 165 mg/dL (75-99)
--- NOTE | 2018-11-23 19:43 | P.ONQ ---
Anesthesiology Proc Note - PNB - Peripheral Nerve Block Performed Left Axillary Single Time Out Performed: Yes Indication: Acute Post-Operative Pain, Dx/Pain Location (Left wrist pain), Requested by physician Sedation Type: Sedate with meaningful contact maintained Preparation: Sterile Prep Position: Supine Catheter: Indwelling Needle Types: On-Q Needle Size: 100mm (4") Needle Gauge: 21 Injectate: 0.5% Ropivacaine (see comment for volume) (25ml) Blood Aspirated: No Pain Paresthesia on Injection Noted: No Resistance on Injection: Normal Events: Uneventful and Well Tolerated
[2018-11-23 19:56] LABS: Glucose,Whole Blood 232 mg/dL (75-99)
[2018-11-23 23:30] VITALS: TEMP 98
[2018-11-23 23:45] VITALS: RESP 16
[2018-11-23 23:54] VITALS: BP 129/73; PULSE 95
[2018-11-24 00:13] LABS: Glucose,Whole Blood 390 mg/dL (75-99)
[2018-11-24 00:13] LABS: Glucose,Whole Blood 403 mg/dL (75-99)
[2018-11-24 00:13] LABS: Glucose,Whole Blood 390 mg/dL (75-99)
[2018-11-24 00:13] LABS: Glucose,Whole Blood 393 mg/dL (75-99)
--- NOTE | 2018-11-24 10:44 | XR ---
Fluoroscopy History: ORIF LT WRIST ORIF LT Wrist fracture. 35 secs fluoro. 5 images scanned.
--- NOTE | 2018-11-25 13:59 | P.OP ---
Date of Procedure: 11/23/18 Preoperative Diagnosis: Displaced, closed left distal radius fracture Postoperative Diagnosis: Displaced, closed left distal radius fracture - intraarticular Procedure(s) Performed: Open reduction and internal fixation - left intraarticular distal radius fracture (>3 fragments) Implants: [employer] Crosslock DVR, narrow left Anesthesia: GETA, regional Surgeon: Yonatan James Estimated Blood Loss (ml): 10 Condition: stable Disposition: PACU Indications for Procedure: The patient is a 53 year-old female who sustained an injury to her left wrist, resulting in a displaced distal radius fracture. Surgical treatment was recommended. Risks and benefits were discussed in the office and reviewed in preop. Questions were invited and answered. The patient expressed understanding and wished to proceed with surgery. Surgery had been postponed due to uncontrolled hyperglycemia. Consent forms were signed. The operative site was confirmed and marked. Description of Procedure: The patient was administered a regional nerve block by the anesthesia team then brought to the operating suite. The patient was positioned supine with the operative limb on an arm board. All bony prominences were well padded. Anesthesia was administered uneventfully. Prophylactic IV antibiotics were administered. A tourniquet was placed on the operative arm which was then prepped and draped in standard, sterile fashion. A timeout was performed which confirmed the patient, the operative side, the site and the procedure to be performed. All team members expressed agreement. The limb was exsanguinated with an Esmarch and the tourniquet was inflated. A standard volar FCR approach was utilized. The skin was incised sharply and subcutaneous tissue were spread, coagulating superficial vessels as needed. The FCR sheath was incised and the tendon was mobilized. Blunt dissection was used and the pronator quadratus was identified. This was sharply released along its radial border and & elevated ulnarly. The fracture site was identified. There was a large radial styloid fragment as well as a separate thin fragment of the volar lip at the scapholunate interval. Manual reduction was attempted but residual deformity remained. A [place] elevator was used to gently release the fracture callous and impacted dorsal fragments. The fracture site was opened and a rongeur was used to remove hematoma and fibrous tissue. The brachioadialis tendon was identified and partially released, taking care to protect the first dorsal compartment tendons. The reduction maneuver was repeated and satisfactory initial alignment was confirmed with fluoroscopy. A 0.062 K wire was inserted percutaneously into the radial styloid and advanced across the metaphysis for provisional reduction. The plate was selected, based on the patients anatomy and fracture pattern, and was positioned on the volar radius. It was provisionally pinned in place with K-wires and its position was confirmed on imaging. A cortical screw was drilled, measured and inserted into the oblong hole of the shaft. Locking and variable angle screws were drilled, measured and inserted distally, confirming length and trajectory with fluoroscopy. The provisional K-wires were removed. An additional cortical screw was drilled and inserted to further secure the plate to the metaphysis. The percutaneous K wire was removed. Final x-rays were obtained which revealed satisfactory reduction of the fracture. A 20-degree inclined lateral view was obtained to confirm extra-articular screw placement. The wrist was then ranged under live fluoroscopy - no motion of the fracture fragments or fixation construct was appreciated. The tourniquet was released and hemostasis was obtained with electrocautery. The wound was thoroughly irrigated with normal saline. The pronator was loosely repaired with interrupted Vicryl sutures. The subcutaneous tissues were reapproximated with interrupted 3-0 Vicryl suture. The incision was closed with interrupted 4-0 nylon suture. Marcaine with epinephrine was injected into the perioperative subcutaneous tissues for adjuctive postoperative pain control and hemostasis. A sterile dressing was applied followed by a resting volar splint. All sponge and needle counts were correct at the end of the case. The patient tolerated the procedure well and was taken to the recovery room in stable condition.
== END | disposition home or self-care (01) ==
LOC: OR 13:31
PROVIDERS: ATTEND Orthopaedic Surgery
DX: S52.572A Other intraarticular fracture of lower end of left radius, initial encounter for closed fracture (principal); W01.0XXA Fall on same level from slipping, tripping and stumbling without subsequent striking against object, initial encounter; Y93.H1 Activity, digging, shoveling and raking; Y92.008 Other place in unspecified non-institutional (private) residence as the place of occurrence of the external cause; E03.9 Hypothyroidism, unspecified; E10.65 Type 1 diabetes mellitus with hyperglycemia; E10.40 Type 1 diabetes mellitus with diabetic neuropathy, unspecified; M54.9 Dorsalgia, unspecified; M54.2 Cervicalgia; J44.9 Chronic obstructive pulmonary disease, unspecified; M79.7 Fibromyalgia; M19.90 Unspecified osteoarthritis, unspecified site; K21.9 Gastro-esophageal reflux disease without esophagitis; F17.210 Nicotine dependence, cigarettes, uncomplicated; Z79.890 Hormone replacement therapy; Z79.891 Long term (current) use of opiate analgesic; Z79.899 Other long term (current) drug therapy; Z79.4 Long term (current) use of insulin; Z88.2 Allergy status to sulfonamides; Z90.710 Acquired absence of both cervix and uterus
CPT/HCPCS: 25609; 64417; 73110; C1713; J2250 ×2; J2405; J2001; J3010; J1885; J1170; J0690; J2795; J0330; J2704; 64415

== ENCOUNTER 2020-09-25 14:22 | Inpatient (IN) | payer BC, OTHER ==
[2020-09-25] MEDS ORDERED: SODIUM CHLORIDE 0.9% 1,000 ML IV ONE ×2 (14:24)
[2020-09-25] MEDS ORDERED: THIAMINE 100 MG/ML 2 ML VIAL IVP STA (14:24)
[2020-09-25] MEDS ORDERED: SODIUM CHLORIDE 0.9% 1,000 ML IV STA (14:24)
[2020-09-25 14:32] LABS: Glucose,Whole Blood >600 mg/dL (75-99)
[2020-09-25] MEDS ORDERED: INSULIN REGULAR BOLUS (FROM DRIP BAG) IV ONE (15:00)
[2020-09-25] MEDS ORDERED: CALCIUM CHLORIDE 100 MG/ML 10 ML SYRINGE IVP STA (15:03)
[2020-09-25 15:16] LABS: ALT 28 U/L (4-34); AST 49 U/L (14-36); African American GFR (CKD) 26 (>60 ml/min/1.73 sqM); Albumin 3.9 g/dL (3.5-5.0); Alkaline Phosphatase 129 U/L (38-126); Blood Urea Nitrogen 54 mg/dL (7-17); Calcium 8.8 mg/dL (8.4-10.2); Chloride 77 mmol/L (98-107); Creatine Kinase 94 U/L (30-135); Non-African American GFR(CKD) 23 (>60 ml/min/1.73 sqM); Total Bilirubin 0.6 mg/dL (0.2-1.3); Total Protein 6.2 g/dL (6.3-8.2)
[2020-09-25 15:25] LABS: Potassium 7.9 mmol/L (3.5-5.1); Sodium 113 mmol/L (137-145)
[2020-09-25 15:26] LABS: Carbon Dioxide <5 mmol/L (22-30)
[2020-09-25 15:28] LABS: Basophils % (A) 0 %; Eosinophils % (A) 0 %; HGB 11.4 gm/dL (11.4-16.0); Hypochromasia Marked; Lymphocytes % (A) 7 %; MCH 29.1 pg (25.0-35.0); MCHC 28.4 g/dL (31.0-37.0); MCV 102.5 fL (80.0-100.0); Macrocytosis Slight; Mean Platelet Volume 10.1; Monocytes # (A) 0.9 k/uL (0-1.0); Monocytes % (A) 6 %; Neutrophils # (A) 11.9 k/uL (1.3-7.7); Neutrophils % (A) 85 %; Platelet Count 300 k/uL (150-450); RBC 3.91 m/uL (3.80-5.40); RDW 12.7 % (11.5-15.5); WBC 13.9 k/uL (3.8-10.6)
[2020-09-25] MEDS: INSULIN REGULAR 100 UNIT in SODIUM CHLORIDE 0.9% 100 ML IV SCH (15:30)
[2020-09-25 15:33] LABS: Appearance,Urine Cloudy (Clear); Bacteria,Urine Occasional /hpf; Bilirubin,Urine Negative (Negative); Blood,Urine Small (Negative); Budding Yeast,Urine Occasional /hpf; Color,Urine Yellow; Glucose,Urine (UA) 4+ (Negative); Hyaline Casts,Urine 46 /lpf (0-2); Ketones,Urine 1+ (Negative); Leukocyte Esterase,Urine Small (Negative); Mucus,Urine Rare /hpf; Nitrite,Urine Negative (Negative); Protein,Urine 1+ (Negative); RBC,Urine 3 /hpf (0-5); Specific Gravity,Urine 1.018 (1.001-1.035); Squamous Epithelial Cell,Urine 1 /hpf (0-4); Urobilinogen,Urine <2.0 mg/dL (<2.0); WBC,Urine 13 /hpf (0-5)
--- NOTE | 2020-09-25 15:35 | XR ---
EXAMINATION TYPE: XR chest 1V portable DATE OF EXAM: 09/25/2020 HISTORY: Shortness of breath. COMPARISON: 04/05/2016 TECHNIQUE: Single view of the chest is submitted. FINDINGS: Demonstrated are scattered senescent parenchymal change. There is no evidence for focal infiltrate. Right IJ central venous line is in place. The heart is stable. Hilar and mediastinal structures are within normal limits. Degenerative changes are seen of the dorsal spine. IMPRESSION: 1. Chronic changes without evidence for acute pulmonary disease.
[2020-09-25 15:39] LABS: Amphetamine Screen,Urine Detected (NotDetected); Barbiturate Screen,Urine Not Detected (NotDetected); Benzodiazepines Screen,Urine Not Detected (NotDetected); Cocaine Screen,Urine Not Detected (NotDetected); Methadone Screen, Urine Not Detected (NotDetected); Opiate Screen,Urine Not Detected (NotDetected); Oxycodone Screen, Urine Detected (NotDetected); Phencyclidine Screen,Urine Not Detected (NotDetected); Tricyclic Antidepressant,Urine Not Detected (NotDetected); Urn Cannabinoid Scrn Not Detected (NotDetected)
[2020-09-25 15:47] LABS: Glucose 1547 mg/dL (74-99)
[2020-09-25 15:51] LABS: ABG Base Excess -27.2 mmol/L; ABG Oxygen Saturation 99.4 % (94-97); ABG PCO2 22 mmHg (35-45); ABG PO2 180 mmHg (83-108); ABG TCO2 6 mmol/L (19-24); Allen Test Performed? Yes
--- NOTE | 2020-09-25 15:56 | ED ---
General Adult HPI - General Chief complaint: Recheck/Abnormal Lab/Rx Stated complaint: Hyperglycemia Time Seen by Provider: 09/25/20 14:24 Source: EMS Mode of arrival: EMS Limitations: altered mental status - History of Present Illness Initial comments: Patient presents with altered mental status. She has a history of diabetes in poor medical compliance. She doesn't answer questions appropriately and provided no further details. - Related Data Home Medications Medication Instructions Recorded Confirmed Ipratropium Jackson [Atrovent Hfa] 2 puff INHALATION RT-Q6H PRN 02/07/14 11/23/18 busPIRone HCL [Buspar] 15 mg PO BID 02/07/14 11/23/18 Famotidine 40 mg PO DAILY 06/08/17 11/23/18 Levothyroxine Sodium [Levoxyl] 200 mcg PO DAILY 07/06/17 11/23/18 Gabapentin [Neurontin] 300 mg PO BID 11/22/18 11/23/18 Insulin NPH Hum/Reg Insulin Hm 13 - 16 unit SQ HS 11/22/18 11/23/18 [NovoLIN 70-30 100 UNIT/ML VIAL] Insulin NPH Hum/Reg Insulin Hm 30 unit SQ QAM 11/22/18 11/23/18 [NovoLIN 70-30 100 UNIT/ML VIAL] Insulin Glulisine [Apidra] 1 - 5 units SQ DIRECTED PRN 11/23/18 11/23/18 Previous Rx's Medication Instructions Recorded HYDROcodone/APAP 10-325MG [[place] 1 tab PO QID PRN #120 tab 07/06/17 10-325] Allergies Allergy/AdvReac Type Severity Reaction Status Date / Time Sulfa (Sulfonamide Allergy Rash/Hives Verified 11/23/18 14:19 Antibiotics) Review of Systems ROS Statement: Those systems with pertinent positive or pertinent negative responses have been documented in the HPI. ROS Other: All systems not noted in ROS Statement are negative. Past Medical History Past Medical History: COPD, Diabetes Mellitus, Fibromyalgia, GERD/Reflux, Hypertension, Osteoarthritis (OA), Thyroid Disorder Additional Past Medical History / Comment(s): NEUROPATHY BILATERAL FEET, -DDD NECK AND LOWER BACK, hiatal hernia, no need for BP med anymore, hepatitis as a kid, fell & fx. left wrist 11-05-18-wearing splint History of Any Multi-Drug Resistant Organisms: MRSA Date of last positivie culture/infection: 05/2016 MDRO Source:: rt great toe Past Surgical History: Adenoidectomy, Back Surgery, Bladder Surgery, Hysterectomy, Orthopedic Surgery, Tonsillectomy, Tubal Ligation Additional Past Surgical History / Comment(s): Debridement R foot, PICC line/later removed, bladder suspension, exploratory laparotomy, rt great toe amputation, pins right feet, cataracts removed Past Anesthesia/Blood Transfusion Reactions: No Reported Reaction Additional Past Anesthesia/Blood Transfusion Reaction / Comment(s): . Past Psychological History: Anxiety Past Alcohol Use History: None Reported Additional Past Alcohol Use History / Comment(s): SMOKER SINCE 1983-10/10 PPD Past Drug Use History: None Reported - Past Family History Mother Family Medical History: No Reported History Additional Family Medical History / Comment(s): Mother has back problems. She is 73 yrs old. Father Additional Family Medical History / Comment(s): at 26yrs old--accident at work General Exam Limitations: altered mental status General appearance: lethargic, obtunded Head exam: Present: atraumatic Eye exam: Present: normal appearance Pupils: Present: normal accommodation ENT exam: Present: mucous membranes dry Neck exam: Present: normal inspection. Absent: tenderness, meningismus Respiratory exam: Present: normal lung sounds bilaterally. Absent: respiratory distress Cardiovascular Exam: Present: tachycardia GI/Abdominal exam: Present: soft. Absent: distended, tenderness Rectal exam: Present: deferred Extremities exam: Present: normal inspection, full ROM. Absent: tenderness Back exam: Present: normal inspection, full ROM. 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 Procedures - Central Line Placement Right IJ Consent Obtained: emergent situation Patient Placed on Monitor/Pulse Ox: Yes MD Prep: mask, gown, gloves Central Line Prep: Chlorhexidine scrub Local Anesthesia Used: Lidocaine 1% Ultrasound Used for Placement: Yes Central Line Lumen Inserted: triple Bloods Obtained for Lab: Yes Central Line Position: good blood return Dressing Applied: Tegaderm Post Procedure X-Ray: tip of catheter in good position Patient Tolerated Procedure: well Complications: none Medical Decision Making - Medical Decision Making Patient presents with altered mental status and hyperglycemia. Laboratory studies are present profound hyperglycemia. I started an IV insulin drip. Patient will be admitted to ICU - Lab Data Result diagrams: 09/25/20 14:53 09/25/20 14:53 Lab Results 09/25/20 09/25/20 09/25/20 Range/Units 14:26 14:53 14:53 WBC 13.9 H (3.8-10.6) k/uL RBC 3.91 (3.80-5.40) m/uL Hgb 11.4 (11.4-16.0) gm/dL Hct 40.0 (34.0-46.0) % MCV 102.5 H (80.0-100.0) fL MCH 29.1 (25.0-35.0) pg MCHC 28.4 L (31.0-37.0) g/dL RDW 12.7 (11.5-15.5) % Plt Count 300 (150-450) k/uL MPV 10.1 Neutrophils % 85 % Lymphocytes % 7 % Monocytes % 6 % Eosinophils % 0 % Basophils % 0 % Neutrophils # 11.9 H (1.3-7.7) k/uL Lymphocytes # 1.0 (1.0-4.8) k/uL Monocytes # 0.9 (0-1.0) k/uL Eosinophils # 0.0 (0-0.7) k/uL Basophils # 0.0 (0-0.2) k/uL Manual Slide Review Performed Hypochromasia Marked Macrocytosis Slight Sample Site ABG pH (7.35-7.45) ABG pCO2 (35-45) mmHg ABG pO2 (83-108) mmHg ABG HCO3 (21-25) mmol/L ABG Total CO2 (19-24) mmol/L ABG O2 Saturation (94-97) % ABG Base Excess mmol/L Dexter Test FiO2 % Sodium (137-145) mmol/L Potassium (3.5-5.1) mmol/L Chloride (98-107) mmol/L Carbon Dioxide (22-30) mmol/L Anion Gap mmol/L BUN (7-17) mg/dL Creatinine (0.52-1.04) mg/dL Est GFR (CKD-EPI)AfAm (>60 ml/min/1.73 sqM) Est GFR (CKD-EPI)NonAf (>60 ml/min/1.73 sqM) Glucose (74-99) mg/dL POC Glucose (mg/dL) >600 H (75-99) mg/dL POC Glu Metal Furnace Operator ID Michael Angel Calcium (8.4-10.2) mg/dL Total Bilirubin (0.2-1.3) mg/dL AST (14-36) U/L ALT (4-34) U/L Alkaline Phosphatase (38-126) U/L Ammonia (<30) umol/L Creatine Kinase (30-135) U/L Troponin I (0.000-0.034) ng/mL Total Protein (6.3-8.2) g/dL Albumin (3.5-5.0) g/dL Urine Color Yellow Urine Appearance Cloudy H (Clear) Urine pH 5.0 (5.0-8.0) Ur Specific Vance 1.018 (1.001-1.035) Urine Protein 1+ H (Negative) Urine Glucose (UA) 4+ H (Negative) Urine Ketones 1+ H (Negative) Urine Blood Small H (Negative) Urine Nitrite Negative (Negative) Urine Bilirubin Negative (Negative) Urine Urobilinogen <2.0 (<2.0) mg/dL Ur Leukocyte Esterase Small H (Negative) Urine RBC 3 (0-5) /hpf Urine WBC 13 H (0-5) /hpf Urine WBC Clumps Few H (None) /hpf Ur Squamous Epith Cells 1 (0-4) /hpf Urine Bacteria Occasional H (None) /hpf Hyaline Casts 46 H (0-2) /lpf Urine Mucus Rare H (None) /hpf Urine Yeast (Budding) Occasional H (None) /hpf Urine Opiates Screen Not Detected (NotDetected) Ur Oxycodone Screen Detected H (NotDetected) Urine Methadone Screen Not Detected (NotDetected) Ur Propoxyphene Screen Not Detected (NotDetected) Ur Barbiturates Screen Not Detected (NotDetected) U Tricyclic Antidepress Not Detected (NotDetected) Ur Phencyclidine Scrn Not Detected (NotDetected) Ur Amphetamines Screen Detected H (NotDetected) U Methamphetamines Scrn Detected H (NotDetected) U Benzodiazepines Scrn Not Detected (NotDetected) Urine Cocaine Screen Not Detected (NotDetected) U Marijuana (THC) Screen Not Detected (NotDetected) Coronavirus (PCR) (Not Detectd) 09/25/20 09/25/20 09/25/20 Range/Units 14:53 14:53 14:53 WBC (3.8-10.6) k/uL RBC (3.80-5.40) m/uL Hgb (11.4-16.0) gm/dL Hct (34.0-46.0) % MCV (80.0-100.0) fL MCH (25.0-35.0) pg MCHC (31.0-37.0) g/dL RDW (11.5-15.5) % Plt Count (150-450) k/uL MPV Neutrophils % % Lymphocytes % % Monocytes % % Eosinophils % % Basophils % % Neutrophils # (1.3-7.7) k/uL Lymphocytes # (1.0-4.8) k/uL Monocytes # (0-1.0) k/uL Eosinophils # (0-0.7) k/uL Basophils # (0-0.2) k/uL Manual Slide Review Hypochromasia Macrocytosis Sample Site ABG pH (7.35-7.45) ABG pCO2 (35-45) mmHg ABG pO2 (83-108) mmHg ABG HCO3 (21-25) mmol/L ABG Total CO2 (19-24) mmol/L ABG O2 Saturation (94-97) % ABG Base Excess mmol/L Dexter Test FiO2 % Sodium 113 L* (137-145) mmol/L Potassium 7.9 H* (3.5-5.1) mmol/L Chloride 77 L (98-107) mmol/L Carbon Dioxide <5 L* (22-30) mmol/L Anion Gap mmol/L BUN 54 H (7-17) mg/dL Creatinine 2.32 H (0.52-1.04) mg/dL Est GFR (CKD-EPI)AfAm 26 (>60 ml/min/1.73 sqM) Est GFR (CKD-EPI)NonAf 23 (>60 ml/min/1.73 sqM) Glucose 1547 H* (74-99) mg/dL POC Glucose (mg/dL) (75-99) mg/dL POC Glu Metal Furnace Operator ID Calcium 8.8 (8.4-10.2) mg/dL Total Bilirubin 0.6 (0.2-1.3) mg/dL AST 49 H (14-36) U/L ALT 28 (4-34) U/L Alkaline Phosphatase 129 H (38-126) U/L Ammonia 10 (<30) umol/L Creatine Kinase 94 (30-135) U/L Troponin I 0.017 (0.000-0.034) ng/mL Total Protein 6.2 L (6.3-8.2) g/dL Albumin 3.9 (3.5-5.0) g/dL Urine Color Urine Appearance (Clear) Urine pH (5.0-8.0) Ur Specific Vance (1.001-1.035) Urine Protein (Negative) Urine Glucose (UA) (Negative) Urine Ketones (Negative) Urine Blood (Negative) Urine Nitrite (Negative) Urine Bilirubin (Negative) Urine Urobilinogen (<2.0) mg/dL Ur Leukocyte Esterase (Negative) Urine RBC (0-5) /hpf Urine WBC (0-5) /hpf Urine WBC Clumps (None) /hpf Ur Squamous Epith Cells (0-4) /hpf Urine Bacteria (None) /hpf Hyaline Casts (0-2) /lpf Urine Mucus (None) /hpf Urine Yeast (Budding) (None) /hpf Urine Opiates Screen (NotDetected) Ur Oxycodone Screen (NotDetected) Urine Methadone Screen (NotDetected) Ur Propoxyphene Screen (NotDetected) Ur Barbiturates Screen (NotDetected) U Tricyclic Antidepress (NotDetected) Ur Phencyclidine Scrn (NotDetected) Ur Amphetamines Screen (NotDetected) U Methamphetamines Scrn (NotDetected) U Benzodiazepines Scrn (NotDetected) Urine Cocaine Screen (NotDetected) U Marijuana (THC) Screen (NotDetected) Coronavirus (PCR) (Not Detectd) 09/25/20 09/25/20 09/25/20 Range/Units 15:47 15:50 15:55 WBC (3.8-10.6) k/uL RBC (3.80-5.40) m/uL Hgb (11.4-16.0) gm/dL Hct (34.0-46.0) % MCV (80.0-100.0) fL MCH (25.0-35.0) pg MCHC (31.0-37.0) g/dL RDW (11.5-15.5) % Plt Count (150-450) k/uL MPV Neutrophils % % Lymphocytes % % Monocytes % % Eosinophils % % Basophils % % Neutrophils # (1.3-7.7) k/uL Lymphocytes # (1.0-4.8) k/uL Monocytes # (0-1.0) k/uL Eosinophils # (0-0.7) k/uL Basophils # (0-0.2) k/uL Manual Slide Review Hypochromasia Macrocytosis Sample Site right radial ABG pH 6.95 L* (7.35-7.45) ABG pCO2 22 L (35-45) mmHg ABG pO2 180 H (83-108) mmHg ABG HCO3 5 L* (21-25) mmol/L ABG Total CO2 6 L (19-24) mmol/L ABG O2 Saturation 99.4 H (94-97) % ABG Base Excess -27.2 mmol/L Dexter Test Yes FiO2 44 % Sodium (137-145) mmol/L Potassium (3.5-5.1) mmol/L Chloride (98-107) mmol/L Carbon Dioxide (22-30) mmol/L Anion Gap mmol/L BUN (7-17) mg/dL Creatinine (0.52-1.04) mg/dL Est GFR (CKD-EPI)AfAm (>60 ml/min/1.73 sqM) Est GFR (CKD-EPI)NonAf (>60 ml/min/1.73 sqM) Glucose (74-99) mg/dL POC Glucose (mg/dL) >600 H (75-99) mg/dL POC Glu Metal Furnace Operator ID Fetterhoff, Michael Calcium (8.4-10.2) mg/dL Total Bilirubin (0.2-1.3) mg/dL AST (14-36) U/L ALT (4-34) U/L Alkaline Phosphatase (38-126) U/L Ammonia (<30) umol/L Creatine Kinase (30-135) U/L Troponin I (0.000-0.034) ng/mL Total Protein (6.3-8.2) g/dL Albumin (3.5-5.0) g/dL Urine Color Urine Appearance (Clear) Urine pH (5.0-8.0) Ur Specific [place] (1.001-1.035) Urine Protein (Negative) Urine Glucose (UA) (Negative) Urine Ketones (Negative) Urine Blood (Negative) Urine Nitrite (Negative) Urine Bilirubin (Negative) Urine Urobilinogen (<2.0) mg/dL Ur Leukocyte Esterase (Negative) Urine RBC (0-5) /hpf Urine WBC (0-5) /hpf Urine WBC Clumps (None) /hpf Ur Squamous Epith Cells (0-4) /hpf Urine Bacteria (None) /hpf Hyaline Casts (0-2) /lpf Urine Mucus (None) /hpf Urine Yeast (Budding) (None) /hpf Urine Opiates Screen (NotDetected) Ur Oxycodone Screen (NotDetected) Urine Methadone Screen (NotDetected) Ur Propoxyphene Screen (NotDetected) Ur Barbiturates Screen (NotDetected) U Tricyclic Antidepress (NotDetected) Ur Phencyclidine Scrn (NotDetected) Ur Amphetamines Screen (NotDetected) U Methamphetamines Scrn (NotDetected) U Benzodiazepines Scrn (NotDetected) Urine Cocaine Screen (NotDetected) U Marijuana (THC) Screen (NotDetected) Coronavirus (PCR) Not Detected (Not Detectd) Critical Care Time Critical Care Time: Yes Total Critical Care Time: 35 (Initiation of IV insulin drip) Disposition Clinical Impression: DKA (diabetic ketoacidoses) Disposition: ADMITTED IP TO THIS [facility] Condition: Critical Is patient prescribed a controlled substance at d/c from ED?: No Referrals: Elian Kincaid MD [Primary Care Provider] - 1-2 days
[2020-09-25 15:57] LABS: ABG HCO3 5 mmol/L (21-25); ABG PH 6.95 (7.35-7.45)
[2020-09-25 16:00] LABS: Glucose,Whole Blood >600 mg/dL (75-99)
[2020-09-25 16:28] LABS: INR 0.9 (<1.2); Partial Thromboplastin Time 21.1 sec (22.0-30.0); Prothrombin Time 9.5 sec (9.0-12.0)
[2020-09-25] MEDS ORDERED: ACETAMINOPHEN SUPPOSITORY 650 MG SUPP RECTAL PRN (16:30)
[2020-09-25] MEDS ORDERED: NALOXONE 0.4 MG/ML 1 ML VIAL IV PRN (16:30)
[2020-09-25] MEDS ORDERED: IPRATROPIUM 0.5 MG/2.5 ML NEBU INHALATION PRN (16:33)
[2020-09-25 17:44] LABS: Glucose,Whole Blood >600 mg/dL (75-99)
[2020-09-25 18:11] LABS: Phosphorus 6.2 mg/dL (2.5-4.5); Potassium 5.2 mmol/L (3.5-5.1)
[2020-09-25 18:59] LABS: Glucose,Whole Blood >600 mg/dL (75-99)
[2020-09-25] MEDS: SODIUM CHLORIDE 0.9% 1,000 ML IV SCH ×2 (19:07→20:59)
[2020-09-25 20:09] LABS: Glucose,Whole Blood >600 mg/dL (75-99)
[2020-09-25] MEDS: busPIRone HCl 5 MG TAB PO SCH (20:59)
[2020-09-25] MEDS: GABAPENTIN 300 MG CAP PO SCH (20:59)
[2020-09-25 21:31] LABS: Glucose,Whole Blood 581 mg/dL (75-99)
[2020-09-25 22:14] LABS: Glucose,Whole Blood 454 mg/dL (75-99)
[2020-09-25 22:36] LABS: Phosphorus 3.1 mg/dL (2.5-4.5); Potassium 4.5 mmol/L (3.5-5.1)
[2020-09-25 23:10] LABS: Glucose,Whole Blood 428 mg/dL (75-99)
[2020-09-26 00:21] LABS: Glucose,Whole Blood 330 mg/dL (75-99)
[2020-09-26] MEDS: SODIUM CHLORIDE 0.9% 1,000 ML IV SCH ×2 (00:47→12:12)
[2020-09-26 01:06] LABS: Glucose,Whole Blood 276 mg/dL (75-99)
[2020-09-26] MEDS: D5-0.45% NACL WITH KCL 20MEQ/L 1,000 ML IV SCH ×2 (01:26→10:46)
[2020-09-26 02:03] LABS: Glucose,Whole Blood 233 mg/dL (75-99)
[2020-09-26] MEDS: INSULIN REGULAR 100 UNIT in SODIUM CHLORIDE 0.9% 100 ML IV SCH (02:04)
[2020-09-26 02:59] LABS: Glucose,Whole Blood 205 mg/dL (75-99)
[2020-09-26 04:07] LABS: Basophils # (A) 0.1 k/uL (0-0.2); Basophils % (A) 0 %; Eosinophils # (A) 0.1 k/uL (0-0.7); Eosinophils % (A) 1 %; HCT 30.3 % (34.0-46.0); HGB 10.9 gm/dL (11.4-16.0); Lymphocytes # (A) 2.8 k/uL (1.0-4.8); Lymphocytes % (A) 21 %; MCH 29.4 pg (25.0-35.0); MCHC 35.8 g/dL (31.0-37.0); Mean Platelet Volume 7.4; Monocytes # (A) 0.7 k/uL (0-1.0); Monocytes % (A) 6 %; Neutrophils # (A) 9.5 k/uL (1.3-7.7); Neutrophils % (A) 71 %; Platelet Count 243 k/uL (150-450); RBC 3.69 m/uL (3.80-5.40); RDW 13.5 % (11.5-15.5); WBC 13.4 k/uL (3.8-10.6)
[2020-09-26 04:16] LABS: Glucose,Whole Blood 128 mg/dL (75-99)
[2020-09-26 04:16] LABS: Glucose,Whole Blood 115 mg/dL (75-99)
[2020-09-26 04:17] LABS: Magnesium 2.1 mg/dL (1.6-2.3); Phosphorus 2.5 mg/dL (2.5-4.5); Potassium 4.1 mmol/L (3.5-5.1)
[2020-09-26 04:24] LABS: MCV 82.2 fL (80.0-100.0)
[2020-09-26 04:25] LABS: Urine Alcohol Negative (Negative); Urine Barbiturate Negative (Negative); Urine Cocaine Negative (Negative); Urine Methadone Negative (Negative); Urine Opiates Negative (Negative); Urine Phencyclidine Negative (Negative)
[2020-09-26] MEDS ORDERED: SODIUM PHOSPHATE 10 MMOL in SODIUM CHLORIDE 0.9% 100 ML IVPB ONE (04:47)
[2020-09-26] MEDS ORDERED: Phosphorus Replacement Protoco 1 EACH MISC MISCELLANE PRN (04:47)
[2020-09-26 05:09] LABS: Glucose,Whole Blood 97 mg/dL (75-99)
[2020-09-26] MEDS: INSULIN ASPART (NovoLOG) 100 UNIT/ML VIAL SQ SCH ×4 (06:17→21:23)
[2020-09-26 06:18] LABS: Glucose,Whole Blood 124 mg/dL (75-99)
[2020-09-26] MEDS ORDERED: LEVOTHYROXINE 100 MCG TAB PO SCH (06:30)
[2020-09-26] MEDS: LEVOTHYROXINE 100 MCG TAB PO SCH (06:41)
[2020-09-26] MEDS: GABAPENTIN 300 MG CAP PO SCH ×2 (08:42→21:24)
[2020-09-26] MEDS: FAMOTIDINE 20 MG TAB PO SCH (08:42)
[2020-09-26] MEDS: busPIRone HCl 5 MG TAB PO SCH ×2 (08:43→21:24)
[2020-09-26] MEDS ORDERED: ERGOCALCIFEROL 50,000 UNIT CAP PO SCH (12:00)
[2020-09-26 12:03] LABS: Glucose,Whole Blood >600 mg/dL (75-99)
[2020-09-26 12:04] LABS: Glucose,Whole Blood 571 mg/dL (75-99)
--- NOTE | 2020-09-26 12:10 | HP ---
HISTORY AND PHYSICAL 55-year-old white female, history of diabetes, poor medical compliance, came in with a sugar of 1500s. In the ICU, was placed on DKA protocol, went to the ICU. Discussed with her positive drug screen, which she denies taking drugs. I saw her in ICU last night 09/25/2020. She is on DKA protocol. Home medications are Levoxyl 200 daily, Neurontin 300 b.i.d., 70/30 13-16 units at night, 30 units q.a.m., Accu-Chek protocol, BuSpar 15 b.i.d. ALLERGIES: SULFA. PAST MEDICAL HISTORY: COPD, diabetes, fibromyalgia, hypertension, GERD, osteoarthritis, hypothyroidism, neuropathy, hiatal hernia, lumbar disc disease, history of MRSA. SURGERIES: Adenoidectomy, back surgery, thyroid surgery, hysterectomy, orthopedic surgery, bladder suspension, exploratory laparotomy, debridement right foot, right great toe amputation, pins in right foot, cataracts removed. SOCIAL HISTORY: Smoker, does not do drugs she states. FAMILY HISTORY: Mother has multiple osteoarthritis and rheumatoid arthritis. Dad accident at work. PHYSICAL EXAMINATION: Temp 97.9, pulse 60s, respiratory rate 16 to 18. Blood pressure 80s over 30s. O2 is 100% on 2 L. She was tachycardic. Cardiovascular: Tachycardic. Lungs were mild wheeze. Dry skin turgor. Poor skin turgor. Dry mucous membranes. Pupils equal, round, reactive. Neck is supple. Extremities normal inspection of back. Passive tenderness. Neurologic: Cranial nerves are intact. Psych: Agitated. She remains in ICU. EKG shows sinus rhythm, no ST depression. 3 L of fluid were given tonight in the ER.She remains on normal saline 200 mL an hour and DKA protocol. Potassium is being monitored. She has prerenal renal insufficiency with BUN 54, creatinine 2.32.Severe hyponatremia of 113.Severe hyperkalemia of 7.9.Platelet level 1547. ASSESSMENT: 1. Diabetic ketoacidosis. 2. Severe dehydration. 3. Hyponatremia. 4. Prerenal renal insufficiency. 5. Hyperkalemia. Prognosis guarded. Remain on DKA protocol. Rule out UTI. Date of service is 09/25/2020 in the ICU. MMODL / IJN: [id number] /
[2020-09-26] MEDS ORDERED: INSULIN ASPART (NovoLOG) 100 UNIT/ML VIAL SQ ONE (12:15)
--- NOTE | 2020-09-26 13:55 | P.CNPUL ---
History of Present Illness Consult date: 09/26/20 Requesting physician: Elian Kincaid Reason for consult: other (Critical care management) Chief complaint: Denies weakness, fatigue History of present illness: This is a 55-year-old female patient who has a history of COPD, diabetes mellitus, fibromyalgia, gastroesophageal reflux disease, hypertension, hypothyroidism, diabetic peripheral neuropathy, anxiety, chronic tobacco dependence. She presented to the emergency room yesterday secondary to altered mental status. She has had a history of medication noncompliance especially in regard to her diabetes. Presenting glucose 1547. Potassium 7.9. Bicarb less than 5. Anion gap 22. Arterial blood gases reveal a pH of 6.95, bicarb 22, pO2 180. Urine drug screen is positive for oxycodone, amphetamines, methamphetamines. Ashby virus not detected. DKA protocol was initiated and she was admitted to the intensive care unit. She is seen today in dilatation in the ICU. She is more awake and alert. Answering questions appropriately. Somewhat slow to respond. Currently on D5 and half-normal saline with 20 of KCl at 150 MLS per hour. Morning labs reveal a white count of 13.4. Hemoglobin 10.9. Sodium 137. Potassium 4.1. Bicarb 28. BUN 48. Creatinine 1.36. Glucose 129. Gap is closed. Chest x-ray reveals no acute pulmonary process. Review of Systems REVIEW OF SYSTEMS: CONSTITUTIONAL: Generalized weakness, fatigue. Denies any recent significant weight loss or weight gain. EYES: Denies change in vision. EARS, NOSE, MOUTH, THROAT: Denies headaches, denies sore throat. CARDIOVASCULAR: Denies chest pain, palpitations or syncopal episodes. RESPIRATORY: Denies shortness of breath, cough, congestion or hemoptysis. GASTROINTESTINAL: Denies change in appetite, denies abdominal pain GENITOURINARY: Denies hematuria, denies infections. MUSKULOSKELETAL: Denies pain, denies swelling. INTEGUMENTARY: Denies rash, denies eczema. NEUROLOGICAL: Denies recent memory loss, no recent seizure activity. PSYCHIATRIC: Denies anxiety, denies depression. HEMATOLOGIC/LYMPHATIC: Denies anemia, denies enlarged lymph nodes. Past Medical History Past Medical History: COPD, Diabetes Mellitus, Fibromyalgia, GERD/Reflux, Hypertension, Osteoarthritis (OA), Thyroid Disorder Additional Past Medical History / Comment(s): NEUROPATHY BILATERAL FEET, -DDD NECK AND LOWER BACK, hiatal hernia, no need for BP med anymore, hepatitis as a kid, fell & fx. left wrist 11-05-18-wearing splint History of Any Multi-Drug Resistant Organisms: MRSA Date of last positivie culture/infection: 05/2016 MDRO Source:: rt great toe Past Surgical History: Adenoidectomy, Back Surgery, Bladder Surgery, Hysterectomy, Orthopedic Surgery, Tonsillectomy, Tubal Ligation Additional Past Surgical History / Comment(s): Debridement R foot, PICC line /later removed, bladder suspension, exploratory laparotomy, rt great toe amputation, pins right feet, cataracts removed Past Anesthesia/Blood Transfusion Reactions: No Reported Reaction Additional Past Anesthesia/Blood Transfusion Reaction / Comment(s): . Past Psychological History: Anxiety Additional Psychological History / Comment(s): . Smoking Status: Current every day smoker Past Alcohol Use History: None Reported Additional Past Alcohol Use History / Comment(s): SMOKER SINCE PPD Past Drug Use History: None Reported - Past Family History Mother Family Medical History: No Reported History Additional Family Medical History / Comment(s): Mother has back problems. She is 73 yrs old. Father Additional Family Medical History / Comment(s): at 26yrs old--accident at work Medications and Allergies Home Medications Medication Instructions Recorded Confirmed Type Insulin NPH Hum/Reg Insulin Hm 14 - 16 unit SQ AC-SUPPER 11/22/18 09/25/20 History [NovoLIN 70-30 100 UNIT/ML VIAL] Insulin NPH Hum/Reg Insulin Hm 30 unit SQ AC-BRKFST 11/22/18 09/25/20 History [NovoLIN 70-30 100 UNIT/ML VIAL] Ciprofloxacin HCl [Cipro] 500 mg PO BID 09/25/20 09/25/20 History Levothyroxine Sodium 300 mcg PO DAILY 09/25/20 09/25/20 History Omeprazole 20 mg PO DAILY 09/25/20 09/25/20 History Vitamin D3 50,000iu 50,000 unit PO Q7D 09/25/20 09/25/20 History Allergies Allergy/AdvReac Type Severity Reaction Status Date / Time Sulfa (Sulfonamide Allergy Rash/Hives Verified 09/25/20 16:42 Antibiotics) Physical Exam Vitals: Vital Signs Temp Pulse Pulse Resp BP BP Pulse Ox 09/26/20 11:09 98.4 F 102 H 18 113/66 99 19/20 10:00 98 16 133/77 95 20 09:00 93 15 128/66 09/26/20 08:00 99.0 F 96 15 101/61 92 L 20 07:00 93 15 100/58 95 09/26/20 06:00 94 15 117/60 91 L 09/26/20 05:00 93 15 121/71 92 L 09/26/20 04:00 98.7 F 93 14 121/65 96 09/26/20 03:00 92 9 L 119/66 91 L 09/26/20 02:00 92 21 119/60 91 L 09/26/20 01:00 92 14 124/61 96 09/26/20 00:00 98.5 F 94 14 103/53 96 1820 23:16 92 14 103/53 96 1820 23:00 95 16 103/53 97 1820 22:00 93 17 111/79 94 L 09/25/20 21:00 94 15 114/77 95 20 20:00 98.6 F 95 14 109/59 97 18/20 19:05 97.9 F 92 17 118/60 99 18/20 18:50 116/63 18/20 18:40 98 13 123/64 97 18/20 18:30 98 13 121/65 97 18/20 18:20 98 13 126/62 98 18/20 18:10 99 13 127/64 98 18/20 18:00 98 13 127/65 98 18/20 17:50 100 11 L 124/62 98 18/20 17:40 101 H 13 128/63 98 18/20 17:30 103 H 18 128/64 99 18/20 17:20 104 H 16 121/64 98 18/20 17:10 104 H 18 113/62 98 18/20 17:00 103 H 20 114/55 98 18/20 16:50 103 H 18 122/57 98 18/20 16:44 78 19 116/56 18/20 16:40 103 H 20 110/58 100 18/20 16:30 101 H 27 H 102/72 99 09/25/20 16:20 101 H 24 106/53 100 09/25/20 16:10 101 H 22 103/51 99 09/25/20 16:00 99 19 102/49 99 09/25/20 15:45 98 19 98/50 09/25/20 15:33 90 09/25/20 15:05 85 22 105/94 09/25/20 14:52 93 24 101/53 09/25/20 14:42 140 H 26 H 82/43 09/25/20 14:35 161 H 27 H 87/52 09/25/20 14:33 172 H 28 H 79/41 98 09/25/20 14:24 97.9 F 66 16 86/38 100 Intake and Output 09/25/20 09/26/20 09/26/20 22:59 06:59 14:59 Intake Total 660 1343.185 400 Output Total 1630 430 215 Balance -970 913.185 185 Intake: IV 660 1250 200 D5-0.45% NaCl with KCl 650 200 20Meq/l 1,000 ml @ 50 mls /hr IV .Q20H LYNDSAY Rx#: [id number] Sodium Chloride 0.9% 1, 260 000 ml @ 130 mls/hr IV . Q7H42M STA Rx#:[id number] Sodium Chloride 0.9% 1, 400 600 000 ml @ 200 mls/hr IV . Q5H LYNDSAY Rx#:[id number] Intake, IV Titration 93.185 Amount Insulin Regular 100 unit 93.185 In Sodium Chloride 0.9% 100 ml @ 0.1 UNITS/KG/HR 7.055 mls/hr IV .[id number] LYNDSAY Rx#:[id number] Tube Feeding 200 Output: Urine 1630 430 215 Other: Voiding Method Indwelling Catheter Indwelling Catheter Indwelling Catheter Weight 67.2 kg 69.8 kg GENERAL EXAM: Alert, 55-year-old female patient, on room air, comfortable in no apparent distress. HEAD: Normocephalic. EYES: Normal reaction of pupils, equal size. NOSE: Clear with pink turbinates. THROAT: No erythema or exudates. NECK: No masses, no JVD. CHEST: No chest wall deformity. LUNGS: Equal air entry with no crackles, wheeze, rhonchi or dullness. CVS: S1 and S2 normal with no audible murmur, regular rhythm. ABDOMEN: No hepatosplenomegaly, normal bowel sounds, no guarding or rigidity. SPINE: No scoliosis or deformity SKIN: No rashes CENTRAL NERVOUS SYSTEM: No focal deficits, tone is normal in all 4 extremities. EXTREMITIES: There is no peripheral edema. No clubbing, no cyanosis. Per ipheral pulses are intact. Results - Laboratory Findings CBC and BMP: 09/26/20 03:45 09/26/20 03:45 ABG ABG pH 6.95 (7.35-7.45) L* 09/25/20 15:47 ABG pCO2 22 mmHg (35-45) L 09/25/20 15:47 ABG pO2 180 mmHg (83-108) H 09/25/20 15:47 ABG O2 Saturation 99.4 % (94-97) H 09/25/20 15:47 PT/INR, D-dimer PT 9.5 sec (9.0-12.0) 09/25/20 15:58 INR 0.9 (<1.2) 09/25/20 15:58 Abnormal lab findings: Abnormal Labs 09/25/20 09/25/20 09/25/20 14:26 14:53 14:53 WBC 13.9 H RBC Hgb Hct MCV 102.5 H MCHC 28.4 L Neutrophils # 11.9 H APTT ABG pH ABG pCO2 ABG pO2 ABG HCO3 ABG Total CO2 ABG O2 Saturation Sodium Potassium Chloride Carbon Dioxide BUN Creatinine Glucose POC Glucose (mg/dL) >600 H Phosphorus AST Alkaline Phosphatase Total Protein Urine Appearance Cloudy H Urine Protein 1+ H Urine Glucose (UA) 4+ H Urine Ketones 1+ H Urine Blood Small H Ur Leukocyte Esterase Small H Urine WBC 13 H Urine WBC Clumps Few H Urine Bacteria Occasional H Hyaline Casts 46 H Urine Mucus Rare H Urine Yeast (Budding) Occasional H Ur Oxycodone Screen Detected H Ur Amphetamine Screen Ur Amphetamines Screen Detected H U Methamphetamines Scrn Detected H 09/25/20 09/25/20 09/25/20 14:53 15:47 15:55 WBC RBC Hgb Hct MCV MCHC Neutrophils # APTT ABG pH 6.95 L* ABG pCO2 22 L ABG pO2 180 H ABG HCO3 5 L* ABG Total CO2 6 L ABG O2 Saturation 99.4 H Sodium 113 L* Potassium 7.9 H* Chloride 77 L Carbon Dioxide <5 L* BUN 54 H Creatinine 2.32 H Glucose 1547 H* POC Glucose (mg/dL) >600 H Phosphorus AST 49 H Alkaline Phosphatase 129 H Total Protein 6.2 L Urine Appearance Urine Protein Urine Glucose (UA) Urine Ketones Urine Blood Ur Leukocyte Esterase Urine WBC Urine WBC Clumps Urine Bacteria Hyaline Casts Urine Mucus Urine Yeast (Budding) Ur Oxycodone Screen Ur Amphetamine Screen Ur Amphetamines Screen U Methamphetamines Scrn 09/25/20 09/25/20 09/25/20 15:58 17:42 17:46 WBC RBC Hgb Hct MCV MCHC Neutrophils # APTT 21.1 L ABG pH ABG pCO2 ABG pO2 ABG HCO3 ABG Total CO2 ABG O2 Saturation Sodium 124 L Potassium 5.2 H Chloride 93 L Carbon Dioxide 9 L* BUN 54 H Creatinine 2.01 H Glucose 1056 H* POC Glucose (mg/dL) >600 H Phosphorus 6.2 H AST Alkaline Phosphatase Total Protein Urine Appearance Urine Protein Urine Glucose (UA) Urine Ketones Urine Blood Ur Leukocyte Esterase Urine WBC Urine WBC Clumps Urine Bacteria Hyaline Casts Urine Mucus Urine Yeast (Budding) Ur Oxycodone Screen Ur Amphetamine Screen Ur Amphetamines Screen U Methamphetamines Scrn 09/25/20 09/25/20 09/25/20 18:57 20:07 20:13 WBC RBC Hgb Hct MCV MCHC Neutrophils # APTT ABG pH ABG pCO2 ABG pO2 ABG HCO3 ABG Total CO2 ABG O2 Saturation Sodium Potassium Chloride Carbon Dioxide BUN Creatinine Glucose POC Glucose (mg/dL) >600 H >600 H Phosphorus AST Alkaline Phosphatase Total Protein Urine Appearance Urine Protein Urine Glucose (UA) Urine Ketones Urine Blood Ur Leukocyte Esterase Urine WBC Urine WBC Clumps Urine Bacteria Hyaline Casts Urine Mucus Urine Yeast (Budding) Ur Oxycodone Screen Ur Amphetamine Screen Positive A Ur Amphetamines Screen U Methamphetamines Scrn 09/25/20 09/25/20 09/25/20 21:30 22:00 22:14 WBC RBC Hgb Hct MCV MCHC Neutrophils # APTT ABG pH ABG pCO2 ABG pO2 ABG HCO3 ABG Total CO2 ABG O2 Saturation Sodium 133 L Potassium Chloride Carbon Dioxide BUN 52 H Creatinine 1.60 H Glucose 485 H POC Glucose (mg/dL) 581 H 454 H Phosphorus AST Alkaline Phosphatase Total Protein Urine Appearance Urine Protein Urine Glucose (UA) Urine Ketones Urine Blood Ur Leukocyte Esterase Urine WBC Urine WBC Clumps Urine Bacteria Hyaline Casts Urine Mucus Urine Yeast (Budding) Ur Oxycodone Screen Ur Amphetamine Screen Ur Amphetamines Screen U Methamphetamines Scrn 09/25/20 09/26/20 09/26/20 23:08 00:20 01:04 WBC RBC Hgb Hct MCV MCHC Neutrophils # APTT ABG pH ABG pCO2 ABG pO2 ABG HCO3 ABG Total CO2 ABG O2 Saturation Sodium Potassium Chloride Carbon Dioxide BUN Creatinine Glucose POC Glucose (mg/dL) 428 H 330 H 276 H Phosphorus AST Alkaline Phosphatase Total Protein Urine Appearance Urine Protein Urine Glucose (UA) Urine Ketones Urine Blood Ur Leukocyte Esterase Urine WBC Urine WBC Clumps Urine Bacteria Hyaline Casts Urine Mucus Urine Yeast (Budding) Ur Oxycodone Screen Ur Amphetamine Screen Ur Amphetamines Screen U Methamphetamines Scrn 09/26/20 09/26/20 09/26/20 02:01 02:57 03:45 WBC 13.4 H RBC 3.69 L Hgb 10.9 L Hct 30.3 L MCV MCHC Neutrophils # 9.5 H APTT ABG pH ABG pCO2 ABG pO2 ABG HCO3 ABG Total CO2 ABG O2 Saturation Sodium Potassium Chloride Carbon Dioxide BUN Creatinine Glucose POC Glucose (mg/dL) 233 H 205 H Phosphorus AST Alkaline Phosphatase Total Protein Urine Appearance Urine Protein Urine Glucose (UA) Urine Ketones Urine Blood Ur Leukocyte Esterase Urine WBC Urine WBC Clumps Urine Bacteria Hyaline Casts Urine Mucus Urine Yeast (Budding) Ur Oxycodone Screen Ur Amphetamine Screen Ur Amphetamines Screen U Methamphetamines Scrn 09/26/20 09/26/20 09/26/20 03:45 04:13 04:14 WBC RBC Hgb Hct MCV MCHC Neutrophils # APTT ABG pH ABG pCO2 ABG pO2 ABG HCO3 ABG Total CO2 ABG O2 Saturation Sodium Potassium Chloride 108 H Carbon Dioxide BUN 48 H Creatinine 1.36 H Glucose 129 H POC Glucose (mg/dL) 115 H 128 H Phosphorus AST Alkaline Phosphatase Total Protein Urine Appearance Urine Protein Urine Glucose (UA) Urine Ketones Urine Blood Ur Leukocyte Esterase Urine WBC Urine WBC Clumps Urine Bacteria Hyaline Casts Urine Mucus Urine Yeast (Budding) Ur Oxycodone Screen Ur Amphetamine Screen Ur Amphetamines Screen U Methamphetamines Scrn 09/26/20 09/26/20 09/26/20 06:16 12:00 12:03 WBC RBC Hgb Hct MCV MCHC Neutrophils # APTT ABG pH ABG pCO2 ABG pO2 ABG HCO3 ABG Total CO2 ABG O2 Saturation Sodium Potassium Chloride Carbon Dioxide BUN Creatinine Glucose POC Glucose (mg/dL) 124 H >600 H 571 H Phosphorus AST Alkaline Phosphatase Total Protein Urine Appearance Urine Protein Urine Glucose (UA) Urine Ketones Urine Blood Ur Leukocyte Esterase Urine WBC Urine WBC Clumps Urine Bacteria Hyaline Casts Urine Mucus Urine Yeast (Budding) Ur Oxycodone Screen Ur Amphetamine Screen Ur Amphetamines Screen U Methamphetamines Scrn - Diagnostic Findings Chest x-ray: image reviewed Assessment and Plan Assessment: 1 Acute diabetic ketoacidosis in a patient with a history of noncompliance. Presenting glucose 1547 2 Anion gap metabolic acidosis secondary to above 3 Hyperkalemia with arrhythmias, recovered, current potassium 4.1 4 Acute renal failure, improving current creatinine 1.36 5 Drug screen positive for oxycodone, amphetamines, methamphetamines. 6 Chronic tobacco dependence 7 History of diabetes mellitus 8 History of diabetic neuropathy 9 Fibromyalgia 10 Hypertension 11 Hypothyroidism 12 Anxiety Plan: The patient was seen and evaluated by Dr. Bullock Chest x-ray and labs reviewed Recovered from the DKA Transfer out of the ICU We will see on an as-needed basis I, the cosigning physician, performed a history & physical examination of the patient. Lungs sounds are clear. Maintaining good O2 saturations in the 90s on room air. I discussed the assessment and plan of care with my nurse practitioner, Jessie Albarran. I attest to the above consultation as dictated by her. Time with Patient: Greater than 30
[2020-09-26 15:15] VITALS: BMI 24.0
[2020-09-26 17:00] LABS: Glucose,Whole Blood 337 mg/dL (75-99)
[2020-09-26 20:48] LABS: Glucose,Whole Blood 301 mg/dL (75-99)
[2020-09-27] MEDS: LEVOTHYROXINE 100 MCG TAB PO SCH (05:42)
--- NOTE | 2020-09-27 06:12 | PN ---
PROGRESS NOTE A 55-year-old white female remains in ICU with DKA. Her sugar is down to 150. Anion gap is closed. Continue fluid rehydration. She is denying any drug use as discussed with abnormal drug screen. Cardiovascular S1-S2. Lungs clear. Psych she appears sluggish and lethargic. Hematology negative Homans. Sodium and potassium are now normal. ASSESSMENT: Diabetic ketoacidosis, severe dehydration, improved. Continue with monitoring for drug withdrawal and current treatment by public relations intern. Please see further orders. Transfer to regular floor. MMODL / IJN: [id number] /
[2020-09-27 06:59] LABS: Glucose,Whole Blood 579 mg/dL (75-99)
[2020-09-27] MEDS: busPIRone HCl 5 MG TAB PO SCH ×2 (07:20→20:08)
[2020-09-27] MEDS: FAMOTIDINE 20 MG TAB PO SCH (07:20)
[2020-09-27] MEDS: PANTOPRAZOLE 40 MG TABLET PO SCH (07:21)
[2020-09-27] MEDS: SODIUM CHLORIDE 0.9% 1,000 ML IV SCH (07:21)
[2020-09-27] MEDS: GABAPENTIN 300 MG CAP PO SCH ×2 (07:21→20:08)
[2020-09-27] MEDS ORDERED: INSULIN REGULAR BOLUS (FROM DRIP BAG) IV ONE (07:30)
[2020-09-27] MEDS: INSULIN REGULAR 100 UNIT in SODIUM CHLORIDE 0.9% 100 ML IV SCH ×2 (08:13→12:08)
[2020-09-27 08:58] LABS: Glucose,Whole Blood 564 mg/dL (75-99)
[2020-09-27 09:23] LABS: Glucose,Whole Blood 548 mg/dL (75-99)
[2020-09-27 09:25] LABS: Basophils % (A) 0 %; Eosinophils # (A) 0.1 k/uL (0-0.7); Eosinophils % (A) 1 %; HCT 32.7 % (34.0-46.0); HGB 10.6 gm/dL (11.4-16.0); Hypochromasia Slight; Lymphocytes # (A) 0.9 k/uL (1.0-4.8); Lymphocytes % (A) 8 %; MCH 29.7 pg (25.0-35.0); MCHC 32.3 g/dL (31.0-37.0); Mean Platelet Volume 8.3; Monocytes # (A) 0.3 k/uL (0-1.0); Monocytes % (A) 3 %; Neutrophils # (A) 9.8 k/uL (1.3-7.7); Neutrophils % (A) 88 %; Platelet Count 145 k/uL (150-450); RBC 3.56 m/uL (3.80-5.40); RDW 14.1 % (11.5-15.5); WBC 11.1 k/uL (3.8-10.6)
[2020-09-27 09:30] LABS: MCV 91.9 fL (80.0-100.0)
[2020-09-27 09:57] LABS: Glucose,Whole Blood 506 mg/dL (75-99)
[2020-09-27 10:29] LABS: Glucose,Whole Blood 475 mg/dL (75-99)
[2020-09-27 10:53] LABS: Glucose,Whole Blood 378 mg/dL (75-99)
[2020-09-27 11:25] LABS: Glucose,Whole Blood 357 mg/dL (75-99)
[2020-09-27 12:08] LABS: Glucose,Whole Blood 277 mg/dL (75-99)
[2020-09-27 12:35] LABS: African American GFR (CKD) 38.4 (60.0-200.0); BUN/Creat Ratio 28.24 Ratio (12.00-20.00); Calcium 9.2 mg/dL (8.7-10.3); Chloride 100 mmol/L (96-109); Non-African American GFR(CKD) 33.1 (60.0-200.0); Phosphorus 2.5 mg/dL (2.4-5.1); Potassium 4.1 mmol/L (3.5-5.5); Sodium 132 mmol/L (135-145)
[2020-09-27 12:55] LABS: Glucose,Whole Blood 200 mg/dL (75-99)
[2020-09-27 15:12] LABS: Glucose,Whole Blood 209 mg/dL (75-99)
[2020-09-27 17:10] LABS: Glucose,Whole Blood 133 mg/dL (75-99)
[2020-09-27 19:20] LABS: Glucose,Whole Blood 262 mg/dL (75-99)
[2020-09-27 21:02] LABS: Glucose,Whole Blood 230 mg/dL (75-99)
[2020-09-27 21:09] LABS: Hemoglobin A1C 14.5 % (4.0-6.0)
[2020-09-27] MEDS: ACETAMINOPHEN TAB 325 MG TAB PO PRN (21:58)
[2020-09-27 23:08] LABS: Glucose,Whole Blood 179 mg/dL (75-99)
[2020-09-28 01:00] LABS: Glucose,Whole Blood 240 mg/dL (75-99)
[2020-09-28 03:05] LABS: Glucose,Whole Blood 172 mg/dL (75-99)
--- NOTE | 2020-09-28 03:57 | PN ---
PROGRESS NOTE A 55-year-old white female, she has been put back on insulin drip because her sugars are in the 400 to 500s still. Continue on normal saline at 100 an hour overnight. Check electrolytes in the morning. Home medicines were restarted. She denies any drug use. CARDIOVASCULAR: S1, S2. LUNGS: Clear. GI: Soft. HEMATOLOGY: Negative Homans. PSYCH: Fair mood and affect. ASSESSMENT: 1. Diabetic ketoacidosis. 2. Hyperglycemia. 3. Dehydration. 4. Anxiety. 5. Neuropathy. Continue current treatments. We will try to get her rehydrated, get her sugar down. PT, OT, possible discharge home. MMODL / IJN: [id number] /
[2020-09-28] MEDS: SODIUM CHLORIDE 0.9% 1,000 ML IV SCH (05:16)
[2020-09-28] MEDS: LEVOTHYROXINE 100 MCG TAB PO SCH (05:37)
[2020-09-28 05:38] LABS: Glucose,Whole Blood 149 mg/dL (75-99)
[2020-09-28 07:05] LABS: Glucose,Whole Blood 169 mg/dL (75-99)
[2020-09-28] MEDS: GABAPENTIN 300 MG CAP PO SCH (07:10)
[2020-09-28] MEDS: PANTOPRAZOLE 40 MG TABLET PO SCH (07:11)
[2020-09-28] MEDS: busPIRone HCl 5 MG TAB PO SCH (07:11)
[2020-09-28] MEDS: ACETAMINOPHEN TAB 325 MG TAB PO PRN (07:11)
[2020-09-28 08:04] LABS: Glucose,Whole Blood 196 mg/dL (75-99)
[2020-09-28 09:02] LABS: Glucose,Whole Blood 298 mg/dL (75-99)
[2020-09-28 09:21] LABS: Carbon Dioxide <10.0 mmol/L (21.6-31.8); Glucose 597 mg/dL (70-110)
[2020-09-28 11:07] LABS: Glucose,Whole Blood 198 mg/dL (75-99)
[2020-09-28 13:18] LABS: Glucose,Whole Blood 234 mg/dL (75-99)
[2020-09-28] MEDS: INSULIN REGULAR 100 UNIT in SODIUM CHLORIDE 0.9% 100 ML IV SCH (13:20)
[2020-09-28 15:06] LABS: Glucose,Whole Blood 280 mg/dL (75-99)
[2020-09-28 15:23] VITALS: BP 117/72; PULSE 78; RESP 14; TEMP 98.4
[2020-09-28 17:05] LABS: Glucose,Whole Blood 346 mg/dL (75-99)
== END 2020-09-28 18:52 | disposition home or self-care (01) | DRG 638 ==
LOC: EC 14:22 → 2SICU 16:30 → 4SSUR 09-26 10:50
PROVIDERS: ADMIT Family Medicine; ATTEND Family Medicine
PROC: 02HV33Z Insertion of Infusion Device into Superior Vena Cava, Percutaneous Approach (ICD-10-PCS; principal; 2020-09-25)
DX: E11.10 Type 2 diabetes mellitus with ketoacidosis without coma (principal); N17.9 Acute kidney failure, unspecified; E11.42 Type 2 diabetes mellitus with diabetic polyneuropathy; J44.9 Chronic obstructive pulmonary disease, unspecified; Z79.4 Long term (current) use of insulin; Z89.411 Acquired absence of right great toe; E87.5 Hyperkalemia; E86.0 Dehydration; I10 Essential (primary) hypertension; K21.9 Gastro-esophageal reflux disease without esophagitis; K44.9 Diaphragmatic hernia without obstruction or gangrene; E03.9 Hypothyroidism, unspecified; Z20.828 Contact with and (suspected) exposure to other viral communicable diseases; M79.7 Fibromyalgia; M19.90 Unspecified osteoarthritis, unspecified site; M50.30 Other cervical disc degeneration, unspecified cervical region; M51.36 Other intervertebral disc degeneration, lumbar region; F41.9 Anxiety disorder, unspecified; F17.200 Nicotine dependence, unspecified, uncomplicated; Z90.710 Acquired absence of both cervix and uterus; Z98.890 Other specified postprocedural states; Z98.51 Tubal ligation status; Z98.49 Cataract extraction status, unspecified eye; Z91.19 Patient's noncompliance with other medical treatment and regimen; Z88.2 Allergy status to sulfonamides; Z79.899 Other long term (current) drug therapy; Z79.890 Hormone replacement therapy; Z86.14 Personal history of Methicillin resistant Staphylococcus aureus infection; Z82.61 Family history of arthritis; Z91.14 Patient's other noncompliance with medication regimen
CPT/HCPCS: 36415; 36556; 36600; 71045; 80048; 80051; 80053; 80306; 81001; 82140; 82550; 82565; 82805; 82947; 83036; 83735; 84100; 84484; 84520; 85025; 85610; 85730; 87635; 93005; 94640; 96361; 96374; 96375; 99291

== ENCOUNTER 2021-08-20 19:44 | Inpatient (IN) | payer OTHER ==
[2021-08-20] MEDS ORDERED: MORPHINE SULFATE 4 MG/ML SYRINGE IV STA (23:30)
[2021-08-20] MEDS ORDERED: SODIUM CHLORIDE 0.9% 1,000 ML IV STA (23:30)
[2021-08-20] MEDS ORDERED: VANCOMYCIN IV PER PHARMACY 1 EACH MISC MISCELLANE PRN (23:30)
[2021-08-20] MEDS ORDERED: NALOXONE 0.4 MG/ML 1 ML VIAL IV PRN (23:31)
[2021-08-20] MEDS ORDERED: LORazepam 2 MG/ML INJ IV PRN (23:31)
--- NOTE | 2021-08-20 23:33 | ED ---
Recheck HPI - General Chief Complaint: Recheck/Abnormal Lab/Rx Stated Complaint: R foot sore-sent by PCP Time Seen by Provider: 08/20/21 22:35 Source: patient, RN notes reviewed, Caregiver Mode of arrival: ambulatory Limitations: no limitations - History of Present Illness Initial Comments: This is a 56-year-old female to the emergency department for evaluation. 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 Significant drainage over the last 24 hours with history of severe osteomyelitis with amputation. Patient Dese was elevated blood sugar weakness and severe foot pain MD Complaint: wound re-check, needs IV antibiotics -: days(s) Returns Today for: needs IV antibiotics, persistent/worsening pain related to initial visit Symptoms Since Prior Visit: worsening pain, worsening swelling, worsening redness, worsening discharge Associated Symptoms: none Treatments Prior to Arrival: other medications, Given Antibiotics on - Related Data Home Medications Medication Instructions Recorded Confirmed Insulin NPH Hum/Reg Insulin Hm 15 unit SQ BID 11/22/18 08/20/21 [NovoLIN 70-30 100 UNIT/ML VIAL] Acetaminophen Tab [Tylenol] 1,500 mg PO BID PRN 08/20/21 08/20/21 Albuterol Inhaler [Ventolin Hfa 2 puff INHALATION RT-QID PRN 08/20/21 08/20/21 Inhaler] Fluticasone/Umeclidin/Vilanter 1 puff INHALATION RT-DAILY 08/20/21 08/20/21 [Trelegy Ellipta 100-62.5-25] Insulin Aspart [NovoLOG] See Protocol SQ TID-W/MEALS PRN 08/20/21 08/20/21 Levothyroxine Sodium [Euthyrox] 150 mcg PO DAILY 08/20/21 08/20/21 Multivitamins, Thera [Multivitamin 1 tab PO DAILY 08/20/21 08/20/21 (formulary)] Rosuvastatin [Crestor] 20 mg PO DAILY 08/20/21 08/20/21 lisinopriL [Zestril] 2.5 mg PO DAILY 08/20/21 08/20/21 Allergies Allergy/AdvReac Type Severity Reaction Status Date / Time Sulfa (Sulfonamide Allergy Rash/Hives Verified 08/20/21 23:33 Antibiotics) Review of Systems ROS Statement: Those systems with pertinent positive or pertinent negative responses have been documented in the HPI. ROS Other: All systems not noted in ROS Statement are negative. Past Medical History Past Medical History: COPD, Diabetes Mellitus, Fibromyalgia, GERD/Reflux, Hypertension, Osteoarthritis (OA), Thyroid Disorder Additional Past Medical History / Comment(s): NEUROPATHY BILATERAL FEET, -DDD NECK AND LOWER BACK, hiatal hernia, no need for BP med anymore, hepatitis as a kid, fell & fx. left wrist 11-05-18-wearing splint History of Any Multi-Drug Resistant Organisms: MRSA Date of last positivie culture/infection: 05/2016 MDRO Source:: rt great toe Past Surgical History: Adenoidectomy, Back Surgery, Bladder Surgery, Hysterectomy, Orthopedic Surgery, Tonsillectomy, Tubal Ligation Additional Past Surgical History / Comment(s): Debridement R foot, PICC line/later removed, bladder suspension, exploratory laparotomy, rt great toe amputation, pins right feet, cataracts removed Past Anesthesia/Blood Transfusion Reactions: No Reported Reaction Additional Past Anesthesia/Blood Transfusion Reaction / Comment(s): . Past Psychological History: Anxiety Smoking Status: Current every day smoker Past Alcohol Use History: None Reported, Rare Past Drug Use History: None Reported - Past Family History Mother Family Medical History: No Reported History Additional Family Medical History / Comment(s): Mother has back problems. She is 73 yrs old. Father Additional Family Medical History / Comment(s): at 26yrs old--accident at work General Exam Limitations: no limitations General appearance: alert, in no apparent distress Head exam: Present: atraumatic, normocephalic, normal inspection Eye exam: Present: normal appearance, PERRL, EOMI. Absent: scleral icterus, conjunctival injection, periorbital swelling ENT exam: Present: normal exam, mucous membranes moist Neck exam: Present: normal inspection. Absent: tenderness, meningismus, lymphadenopathy Respiratory exam: Present: normal lung sounds bilaterally. Absent: respiratory distress, wheezes, rales, rhonchi, stridor Cardiovascular Exam: Present: regular rate, normal rhythm, normal heart sounds. Absent: systolic murmur, diastolic murmur, rubs, gallop, clicks GI/Abdominal exam: Present: soft, normal bowel sounds. Absent: distended, tenderness, guarding, rebound, rigid Extremities exam: Present: normal inspection, full ROM, normal capillary refill. Absent: tenderness, pedal edema, joint swelling, calf tenderness Back exam: Present: normal inspection Neurological exam: Present: alert, oriented X3, CN II-XII intact Psychiatric exam: Present: normal affect, normal mood Skin exam: Present: warm, dry, intact, normal color. Absent: rash Course Vital Signs 08/20/21 08/21/21 19:56 01:26 Temperature 97.6 F Pulse Rate 75 72 Respiratory 18 18 Rate Blood Pressure 120/69 145/72 O2 Sat by Pulse 96 98 Oximetry - Reevaluation(s) Reevaluation #1: 08/21/21 06:41 Medical record is reviewed Reevaluation #2: 08/21/21 06:41 Patient symptoms are simply improved Reevaluation #3: 08/21/21 06:41 Patient informed results and questions are answered Medical Decision Making - Medical Decision Making 56 female to the emergency for today. Patient Dese for evaluation of significant left foot pain secondary to diabetic foot ulcer will admit for IV antibiotics will care - Lab Data Result diagrams: 08/21/21 00:04 08/21/21 00:04 - EKG Data -: EKG Interpreted by Me (EKG shows sinus a 95 VA 154 QRS 88 QTc 452) - Radiology Data Radiology results: report reviewed (X-ray left foot does not show significant osteomyelitis), image reviewed Disposition Clinical Impression: Diabetic foot ulcer associated with type 2 diabetes mellitus, Diabetic ulcer of right foot Disposition: ADMITTED IP TO THIS [facility] Condition: Good Is patient prescribed a controlled substance at d/c from ED?: No
[2021-08-21] MEDS ORDERED: VANCOMYCIN 1,000 MG in SODIUM CHLORIDE 0.9% 250 ML IVPB ONE ×2
--- NOTE | 2021-08-21 00:09 | XR ---
EXAMINATION TYPE: XR foot complete RT DATE OF EXAM: 08/21/2021 COMPARISON: 09/18/2015 HISTORY: Pain TECHNIQUE: 3 views FINDINGS: There is a single screw fixing the proximal fifth metatarsal. There is amputation of the bi g toe at the level of the base of the proximal phalanx. I see no fracture nor dislocation. There is p lantar calcaneal spurring. There is no focal bone destruction. IMPRESSION: Previous surgery. No evidence of osteomyelitis. No fracture.
[2021-08-21 00:25] LABS: Basophils % (A) 1 %; Eosinophils # (A) 0.3 k/uL (0-0.7); Eosinophils % (A) 4 %; HCT 33.4 % (34.0-46.0); HGB 10.8 gm/dL (11.4-16.0); Lymphocytes % (A) 27 %; MCH 30.7 pg (25.0-35.0); MCHC 32.5 g/dL (31.0-37.0); MCV 94.5 fL (80.0-100.0); Mean Platelet Volume 7.4; Monocytes # (A) 0.4 k/uL (0-1.0); Monocytes % (A) 5 %; Neutrophils # (A) 4.6 k/uL (1.3-7.7); Neutrophils % (A) 62 %; Platelet Count 385 k/uL (150-450); RBC 3.53 m/uL (3.80-5.40); WBC 7.4 k/uL (3.8-10.6)
[2021-08-21 00:34] LABS: INR 0.8 (<1.2); Partial Thromboplastin Time 24.7 sec (22.0-30.0); Prothrombin Time 9.3 sec (9.0-12.0)
[2021-08-21 01:18] LABS: Albumin 4.1 g/dL (3.5-5.0); Calcium 9.6 mg/dL (8.4-10.2); Phosphorus 3.9 mg/dL (2.5-4.5); Potassium 4.4 mmol/L (3.5-5.1); Total Bilirubin 0.4 mg/dL (0.2-1.3); Total Protein 7.7 g/dL (6.3-8.2)
[2021-08-21] MEDS: MORPHINE SULFATE 4 MG/ML SYRINGE IV PRN ×2 (01:20→09:35)
[2021-08-21] MEDS ORDERED: INSULIN REGULAR 100 UNIT/ML VIAL (IV) IV ONE (01:42)
[2021-08-21] MEDS ORDERED: INSULIN REGULAR 100 UNIT/ML VIAL (IM/SQ) SQ ONE (01:42)
[2021-08-21 03:25] LABS: Glucose,Whole Blood 228 mg/dL (75-99)
[2021-08-21] MEDS ORDERED: ALBUTEROL NEBULIZED 2.5 MG/3 ML INHALATION PRN (04:37)
[2021-08-21 09:21] LABS: Glucose,Whole Blood 385 mg/dL (75-99)
[2021-08-21] MEDS: INSULIN ASPART (NovoLOG) 100 UNIT/ML VIAL SQ SCH ×3 (09:34→16:41)
[2021-08-21] MEDS: INSULN ASP PRT/INSULIN ASPART 100 UNIT/ML 10 ML VIAL SQ SCH ×2 (09:49→22:55)
[2021-08-21] MEDS: LEVOTHYROXINE 75 MCG TAB PO SCH (09:50)
[2021-08-21] MEDS: MULTIVITAMINS, THERA 1 EACH TAB PO SCH (09:55)
[2021-08-21] MEDS: ATORVASTATIN 40 MG TAB PO SCH (09:55)
[2021-08-21 10:03] LABS: Basophils % (A) 1 %; Eosinophils # (A) 0.3 k/uL (0-0.7); Eosinophils % (A) 6 %; HCT 30.7 % (34.0-46.0); HGB 10.1 gm/dL (11.4-16.0); Lymphocytes # (A) 2.2 k/uL (1.0-4.8); Lymphocytes % (A) 37 %; MCV 94.1 fL (80.0-100.0); Mean Platelet Volume 7.1; Monocytes # (A) 0.3 k/uL (0-1.0); Monocytes % (A) 6 %; Neutrophils # (A) 2.9 k/uL (1.3-7.7); Neutrophils % (A) 49 %; Platelet Count 370 k/uL (150-450); RBC 3.26 m/uL (3.80-5.40); RDW 11.9 % (11.5-15.5); WBC 5.9 k/uL (3.8-10.6)
[2021-08-21 10:14] LABS: ALT 11 U/L (4-34); AST 16 U/L (14-36); African American GFR (CKD) >90 (>60 ml/min/1.73 sqM); Albumin 3.1 g/dL (3.5-5.0); Alkaline Phosphatase 109 U/L (38-126); Anion Gap 7 mmol/L; Blood Urea Nitrogen 24 mg/dL (7-17); Calcium 8.9 mg/dL (8.4-10.2); Carbon Dioxide 23 mmol/L (22-30); Chloride 100 mmol/L (98-107); Glucose 388 mg/dL (74-99); Non-African American GFR(CKD) 86 (>60 ml/min/1.73 sqM); Potassium 4.7 mmol/L (3.5-5.1); Sodium 130 mmol/L (137-145); Total Bilirubin 0.3 mg/dL (0.2-1.3); Total Protein 6.3 g/dL (6.3-8.2)
[2021-08-21] MEDS: SYMBICORT 80-4.5 MCG INHALER INHALATION SCH ×2 (11:56→23:19)
[2021-08-21] MEDS: IPRATROPIUM 0.5 MG/2.5 ML NEBU INHALATION SCH ×3 (11:56→23:19)
[2021-08-21 16:29] LABS: Glucose,Whole Blood 50 mg/dL (75-99)
[2021-08-21 16:44] LABS: Glucose,Whole Blood 84 mg/dL (75-99)
[2021-08-21] MEDS: VANCOMYCIN 1,000 MG in SODIUM CHLORIDE 0.9% 250 ML IVPB SCH (17:36)
--- NOTE | 2021-08-21 19:10 | P.HPIM ---
History of Present Illness H&P Date: 08/21/21 Chief Complaint: Right foot wound 56-year-old female with history of diabetes, COPD, hypertension, hyperlipidemia and hypothyroidism; presents to the emergency department for evaluation of right foot wound; patient reports she does have history of diabetic foot ulcer which h ealed quite well; reports she started feeling pain a couple days ago after which she noticed an open sore with some drainage and decided to come to ER for further evaluation. Significant drainage over the last 24 hours with history of severe osteomyelitis with amputation. Patient was found to have elevated blood sugar weakness and severe foot pain X-ray left foot does not show significant osteomyelitis EKG shows sinus a 95 NC 154 QRS 88 QTc 452 CBC reveals a WBC of 7.4, hemoglobin 10.8, hematocrit 33.4 and platelet count of 385; sodium 128, potassium 4.4, BUN 31 with creatinine of 1.13, blood glucose of 577 Review of Systems REVIEW OF SYSTEMS: CONSTITUTIONAL: No fever, no malaise, no fatigue. HEENT: No recent visual problems or hearing problems. Denied any sore throat. CARDIOVASCULAR: No chest pain, orthopnea, PND, no palpitations, no syncope. PULMONARY: No shortness of breath, no cough, no hemoptysis. GASTROINTESTINAL: No diarrhea, no nausea, no vomiting, no abdominal pain. NEUROLOGICAL: No headaches, no weakness, no numbness. HEMATOLOGICAL: Denies any bleeding or petechiae. GENITOURINARY: Denies any burning micturition, frequency, or urgency. MUSCULOSKELETAL/RHEUMATOLOGICAL: Denies any joint pain, swelling, or any muscle pain. ENDOCRINE: Denies any polyuria or polydipsia. The rest of the 14-point review of systems is negative. Past Medical History Past Medical History: COPD, Diabetes Mellitus, Fibromyalgia, GERD/Reflux, Hypertension, Osteoarthritis (OA), Thyroid Disorder Additional Past Medical History / Comment(s): NEUROPATHY BILATERAL FEET, -DDD NECK AND LOWER BACK, hiatal hernia, no need for BP med anymore, hepatitis as a kid, fell & fx. left wrist 11-05-18-wearing splint History of Any Multi-Drug Resistant Organisms: MRSA Date of last positivie culture/infection: 05/2016 MDRO Source:: rt great toe Past Surgical History: Adenoidectomy, Back Surgery, Bladder Surgery, Hysterectomy, Orthopedic Surgery, Tonsillectomy, Tubal Ligation Additional Past Surgical History / Comment(s): Debridement R foot, PICC line/later removed, bladder suspension, exploratory laparotomy, rt great toe amputation, pins right feet, cataracts removed Past Anesthesia/Blood Transfusion Reactions: No Reported Reaction Additional Past Anesthesia/Blood Transfusion Reaction / Comment(s): . Past Psychological History: Anxiety Smoking Status: Current every day smoker Past Alcohol Use History: None Reported, Rare Past Drug Use History: None Reported - Past Family History Mother Family Medical History: No Reported History Additional Family Medical History / Comment(s): Mother has back problems. She is 73 yrs old. Father Additional Family Medical History / Comment(s): at 26yrs old--accident at work Medications and Allergies Home Medications Medication Instructions Recorded Confirmed Type Insulin NPH Hum/Reg Insulin Hm 15 unit SQ BID 11/22/18 08/20/21 History [NovoLIN 70-30 100 UNIT/ML VIAL] Acetaminophen Tab [Tylenol] 1,500 mg PO BID PRN 08/20/21 08/20/21 History Albuterol Inhaler [Ventolin Hfa 2 puff INHALATION RT-QID PRN 08/20/21 08/20/21 History Inhaler] Fluticasone/Umeclidin/Vilanter 1 puff INHALATION RT-DAILY 08/20/21 08/20/21 History [Laquita Ellipta 100-62.5-25] Insulin Aspart [NovoLOG] See Protocol SQ TID-W/MEALS PRN 08/20/21 08/20/21 History Levothyroxine Sodium [Euthyrox] 150 mcg PO DAILY 08/20/21 08/20/21 History Multivitamins, Thera [Multivitamin 1 tab PO DAILY 08/20/21 08/20/21 History (formulary)] Rosuvastatin [Crestor] 20 mg PO DAILY 08/20/21 08/20/21 History lisinopriL [Zestril] 2.5 mg PO DAILY 08/20/21 08/20/21 History Allergies Allergy/AdvReac Type Severity Reaction Status Date / Time Sulfa (Sulfonamide Allergy Rash/Hives Verified 08/20/21 23:33 Antibiotics) Physical Exam Vitals: Vital Signs Temp Pulse Resp BP Pulse Ox 08/21/21 01:26 72 18 145/72 98 08/20/21 19:56 97.6 F 75 18 120/69 96 Intake and Output 08/20/21 08/21/21 08/21/21 22:59 06:59 14:59 Other: Weight 58.967 kg - Constitutional General appearance: Present: average body habitus, cooperative, no acute distress - EENT Eyes: Present: anicteric sclerae, EOMI, PERRLA, normal appearance ENT: Present: hearing grossly normal, normal oropharynx Ears: bilateral: normal - Neck Neck: Present: normal ROM. Absent: lymphadenopathy, rigidity, thyromegaly Carotids: negative: bruit present Thyroid: bilateral: normal size, negative: enlarged, nodule - Respiratory Respiratory: bilateral: CTA, negative: rales, rhonchi, wheezing - Cardiovascular Rhythm: regular Heart sounds: normal: S1, S2 Abnormal Heart Sounds: Absent: systolic murmur, diastolic murmur - Gastrointestinal General gastrointestinal: Present: normal bowel sounds, soft. Absent: distended, organomegaly, tenderness - Genitourinary Genitourinary Comment(s): deferred - Integumentary Integumentary: Present: normal turgor. Absent: jaundiced, rash, ulcer - Neurologic Neurologic: Present: CNII-XII intact. Absent: focal deficits - Musculoskeletal Musculoskeletal: Present: gait normal, strength equal bilaterally - Psychiatric Psychiatric: Present: A&O x's 3, appropriate affect, intact judgment & insight Results CBC & Chem 7: 08/21/21 09:28 08/21/21 09:28 Labs: Abnormal Lab Results - Last 24 Hours (Table) 08/21/21 08/21/21 08/21/21 Range/Units 00:04 00:04 03:24 RBC 3.53 L (3.80-5.40) m/uL Hgb 10.8 L (11.4-16.0) gm/dL Hct 33.4 L (34.0-46.0) % Sodium 128 L (137-145) mmol/L Chloride 94 L (98-107) mmol/L BUN 31 H (7-17) mg/dL Creatinine 1.13 H (0.52-1.04) mg/dL Glucose 577 H* (74-99) mg/dL POC Glucose (mg/dL) 228 H (75-99) mg/dL Albumin (3.5-5.0) g/dL 08/21/21 08/21/21 08/21/21 Range/Units 09:16 09:28 09:28 RBC 3.26 L (3.80-5.40) m/uL Hgb 10.1 L (11.4-16.0) gm/dL Hct 30.7 L (34.0-46.0) % Sodium 130 L (137-145) mmol/L Chloride (98-107) mmol/L BUN 24 H (7-17) mg/dL Creatinine (0.52-1.04) mg/dL Glucose 388 H (74-99) mg/dL POC Glucose (mg/dL) 385 H (75-99) mg/dL Albumin 3.1 L (3.5-5.0) g/dL Assessment and Plan Assessment: 1. Diabetic right foot ulcer/osteomyelitis - Patient has been started on IV Rocephin and vancomycin; blood cultures and wound cultures are ordered; consult ID for further recommendations - We will monitor CBC, CRP and pro-calcitonin 2. Hyperglycemia without acidosis; patient has received IV fluids in ED along with 10 units of Humulin R IV; we will continue; we will monitor Accu-Cheks every before meals and at bedtime with insulin sliding scale; we will plan to initiate insulin infusion if blood glucose remains elevated; patient is placed on 15 units NovoLog Mix 70/30 subcu twice a day 3. Acute renal injury; baseline creatinine is not known; we will continue with slow IV fluid and monitor renal function and electrolytes; avoid nephrotoxins and hypotension 4. Hyperlipidemia; Lipitor 40 mg by mouth daily at bedtime 5. Asthma/COPD; Symbicort inhaler 2 puffs twice a day 6. Hypothyroidism; levothyroxin 150 MCG daily 7. Hypertension; lisinopril 2.5 mg daily DVT prophylaxis; SCDs/subcu heparin CODE STATUS; full code
[2021-08-21 20:47] LABS: Glucose,Whole Blood 450 mg/dL (75-99)
[2021-08-21] MEDS: HEPARIN SODIUM,PORCINE/PF 5,000 UNIT/0.5 ML SYRINGE SQ SCH (21:54)
[2021-08-21] MEDS: ONDANSETRON 4 MG/2 ML VIAL IVP PRN (22:15)
[2021-08-22 00:38] LABS: Glucose,Whole Blood 421 mg/dL (75-99)
[2021-08-22] MEDS: INSULIN ASPART (NovoLOG) 100 UNIT/ML VIAL SQ SCH ×5 (00:41→21:32)
[2021-08-22 04:53] LABS: Glucose,Whole Blood 120 mg/dL (75-99)
[2021-08-22] MEDS: LEVOTHYROXINE 75 MCG TAB PO SCH (05:00)
[2021-08-22] MEDS: ONDANSETRON 4 MG/2 ML VIAL IVP PRN ×2 (05:01→12:54)
[2021-08-22 06:03] LABS: Glucose,Whole Blood 109 mg/dL (75-99)
[2021-08-22 06:41] LABS: Glucose,Whole Blood 120 mg/dL (75-99)
[2021-08-22] MEDS: IPRATROPIUM 0.5 MG/2.5 ML NEBU INHALATION SCH ×4 (07:46→21:07)
[2021-08-22] MEDS: ATORVASTATIN 40 MG TAB PO SCH (09:17)
[2021-08-22] MEDS: MORPHINE SULFATE 4 MG/ML SYRINGE IV PRN (09:18)
[2021-08-22] MEDS: MULTIVITAMINS, THERA 1 EACH TAB PO SCH (09:18)
[2021-08-22] MEDS: HEPARIN SODIUM,PORCINE/PF 5,000 UNIT/0.5 ML SYRINGE SQ SCH ×2 (09:18→17:20)
[2021-08-22] MEDS: INSULN ASP PRT/INSULIN ASPART 100 UNIT/ML 10 ML VIAL SQ SCH ×2 (09:22→21:32)
[2021-08-22] MEDS: VANCOMYCIN 1,000 MG in SODIUM CHLORIDE 0.9% 250 ML IVPB SCH ×2 (09:24→21:27)
[2021-08-22 10:00] LABS: African American GFR (CKD) >90 (>60 ml/min/1.73 sqM); Non-African American GFR(CKD) 85 (>60 ml/min/1.73 sqM)
[2021-08-22] MEDS: SYMBICORT 80-4.5 MCG INHALER INHALATION SCH ×2 (10:47→21:07)
[2021-08-22 11:25] LABS: Glucose,Whole Blood 286 mg/dL (75-99)
--- NOTE | 2021-08-22 11:42 | P.CONS ---
History of Present Illness - Reason for Consult Consult date: 08/21/21 right diabetic foot infection Requesting physician: Shania Lazar - Chief Complaint right foot ulcer and redness x few days - History of Present Illness History of present illness : Patient is 56-year female with a past medical history significant for right BKA abrasion at the proximal phalanx few years ago for a diabetic foot ulcer patient presented to the ER last night for evaluation of increasing swelling and redness to the right foot medial border at the base of the first toe in this patient who did have an ulcer patient symptom has been getting worse for the last few days has been complaining of pain more of a dull aching to throbbing 5-6 out of 10 no radiation with associated swelling and redness and did have some drainage patient apparently has been eval by podiatry and did have some debridement done however mention no culture patient on presentation to the hospital was afebrile patient did have a normal white count kidney function was normal hector PCR was negative patient did have x-rays of the foot no evidence of osteomyelitis or fracture seen patient was admitted to the hospital started on ceftriaxone and vancomycin infectious was consulted for further management of antibiotic therapy Review of system: CONSTITUTIONAL: Positive for weakness denies fever. EYES: No complaint. ENT: No complaint. RESPIRATORY: No complaint. CARDIOVASCULAR: No complaint. GENITOURINARY: No complaint. GASTROINTESTINAL: No complaint. MUSCULOSKELETAL as per history of present illness INTEGUMENTARY: As per history of present illness. PSYCHOLOGIC: No complaint. ENDOCRINE: No complaint. NEUROLOGIC: No complaint. Past medical history : Reviewed, documented below Past surgical history : Reviewed, documented below Social history: Reviewed, documented below Medications: Reviewed, as documented below EXAMINATION: Vital sigans= Reviewed and documented below GENERAL DESCRIPTION: Middle-aged female lying in bed, no distress. No tachypnea or accessory muscle of respiration use. HEENT: Shows Pallor , no scleral icterus. Oral mucous membrane is dry. NECK: Trachea central, no thyromegaly. LUNGS: Unlabored breathing. Clear to auscultation anteriorly. No wheeze or crackle. HEART: S1, S2, regular rate and rhythm. ABDOMEN: Soft, no tenderness , guarding or rigidity EXTREMITIES: No edema of feet. Right foot medial border at the base of the past 2 did have white ulcer with surrounding swelling or redness and minimal drainage that was cultured SKIN: No rash, no masses palpable. NEUROLOGICAL: The patient is awake, alert, oriented x3, mood and affect normal. LABS AND RADIOLOGY: Reviewed results see below Assessment : Patient with right diabetic foot infection in this patient who did have a history of right diabetic foot infection requiring amputation of the right big toe at the proximal phalanx now with likely a callus and secondary diabetic foot infection will need to cover for the polymicrobial kwesi usually associated with this type of infection Plan: 1-wound culture has been repeated to narrow down antibiotic therapy 2-vancomycin pharmacy to dose with a target trough of 15 while watching kidney function and Vanco trough closely. 3-switch Rocephin to Unasyn 4-obtain CRP and ESR if elevated will obtain bone scan We will follow on clinical condition and cultures to further adjust medication if needed Thank you for this consultation we will follow the patient along with you Past Medical History Past Medical History: COPD, Diabetes Mellitus, Fibromyalgia, GERD/Reflux, Hypert ension, Osteoarthritis (OA), Thyroid Disorder Additional Past Medical History / Comment(s): NEUROPATHY BILATERAL FEET, -DDD NECK AND LOWER BACK, hiatal hernia, no need for BP med anymore, hepatitis as a kid, fell & fx. left wrist 11-05-18-wearing splint History of Any Multi-Drug Resistant Organisms: MRSA Year Discovered:: 05/2016 MDRO Source:: rt great toe Past Surgical History: Adenoidectomy, Back Surgery, Bladder Surgery, Hysterectomy, Orthopedic Surgery, Tonsillectomy, Tubal Ligation Additional Past Surgical History / Comment(s): Debridement R foot, PICC line/later removed, bladder suspension, exploratory laparotomy, rt great toe amputation, pins right feet, cataracts removed Past Anesthesia/Blood Transfusion Reactions: No Reported Reaction Additional Past Anesthesia/Blood Transfusion Reaction / Comm: . Past Psychological History: Anxiety Smoking Status: Current every day smoker Past Alcohol Use History: None Reported, Rare Past Drug Use History: None Reported - Past Family History Mother Family Medical History: No Reported History Additional Family Medical History / Comment(s): Mother has back problems. She is 73 yrs old. Father Additional Family Medical History / Comment(s): at 26yrs old--accident at work Medications and Allergies Home Medications Medication Instructions Recorded Confirmed Type Insulin NPH Hum/Reg Insulin Hm 15 unit SQ BID 11/22/18 08/20/21 History [NovoLIN 70-30 100 UNIT/ML VIAL] Acetaminophen Tab [Tylenol] 1,500 mg PO BID PRN 08/20/21 08/20/21 History Albuterol Inhaler [Ventolin Hfa 2 puff INHALATION RT-QID PRN 08/20/21 08/20/21 History Inhaler] Fluticasone/Umeclidin/Vilanter 1 puff INHALATION RT-DAILY 08/20/21 08/20/21 History [Trelegy Ellipta 100-62.5-25] Insulin Aspart [NovoLOG] See Protocol SQ TID-W/MEALS PRN 08/20/21 08/20/21 History Levothyroxine Sodium [Euthyrox] 150 mcg PO DAILY 08/20/21 08/20/21 History Multivitamins, Thera [Multivitamin 1 tab PO DAILY 08/20/21 08/20/21 History (formulary)] Rosuvastatin [Crestor] 20 mg PO DAILY 08/20/21 08/20/21 History lisinopriL [Zestril] 2.5 mg PO DAILY 08/20/21 08/20/21 History Allergies Allergy/AdvReac Type Severity Reaction Status Date / Time Sulfa (Sulfonamide Allergy Rash/Hives Verified 08/20/21 23:33 Antibiotics) Physical Exam Vitals: Vital Signs Temp Pulse Pulse Resp BP BP Pulse Ox 08/21/21 14:56 96.5 F L 84 16 123/64 97 08/21/21 01:26 72 18 145/72 98 08/20/21 19:56 97.6 F 75 18 120/69 96 Results CBC & Chem 7: 08/21/21 09:28 08/22/21 08:45 Labs: Abnormal Lab Results - Last 24 Hours (Table) 08/21/21 08/21/21 08/21/21 Range/Units 00:04 00:04 03:24 RBC 3.53 L (3.80-5.40) m/uL Hgb 10.8 L (11.4-16.0) gm/dL Hct 33.4 L (34.0-46.0) % Sodium 128 L (137-145) mmol/L Chloride 94 L (98-107) mmol/L BUN 31 H (7-17) mg/dL Creatinine 1.13 H (0.52-1.04) mg/dL Glucose 577 H* (74-99) mg/dL POC Glucose (mg/dL) 228 H (75-99) mg/dL Albumin (3.5-5.0) g/dL 08/21/21 08/21/21 08/21/21 Range/Units 09:16 09:28 09:28 RBC 3.26 L (3.80-5.40) m/uL Hgb 10.1 L (11.4-16.0) gm/dL Hct 30.7 L (34.0-46.0) % Sodium 130 L (137-145) mmol/L Chloride (98-107) mmol/L BUN 24 H (7-17) mg/dL Creatinine (0.52-1.04) mg/dL Glucose 388 H (74-99) mg/dL POC Glucose (mg/dL) 385 H (75-99) mg/dL Albumin 3.1 L (3.5-5.0) g/dL
[2021-08-22 12:53] LABS: Glucose,Whole Blood 214 mg/dL (75-99)
[2021-08-22] MEDS: AMPICILLIN-SULBACTAM 3 GM in SODIUM CHLORIDE 0.9% 100 ML IVPB SCH ×2 (12:57→17:20)
[2021-08-22 13:06] LABS: Basophils % (A) 0 %; Eosinophils # (A) 0.3 k/uL (0-0.7); Eosinophils % (A) 4 %; HCT 37.4 % (34.0-46.0); Lymphocytes # (A) 0.8 k/uL (1.0-4.8); Lymphocytes % (A) 11 %; MCH 30.7 pg (25.0-35.0); MCHC 32.2 g/dL (31.0-37.0); MCV 95.4 fL (80.0-100.0); Mean Platelet Volume 8.8; Monocytes # (A) 0.4 k/uL (0-1.0); Monocytes % (A) 5 %; Neutrophils # (A) 5.7 k/uL (1.3-7.7); Neutrophils % (A) 78 %; Platelet Count 423 k/uL (150-450); RBC 3.92 m/uL (3.80-5.40); WBC 7.3 k/uL (3.8-10.6)
[2021-08-22 13:30] LABS: Anion Gap 8 mmol/L; Blood Urea Nitrogen 23 mg/dL (7-17); C Reactive Protein 5.2 mg/dL (<1.0); Carbon Dioxide 24 mmol/L (22-30); Chloride 98 mmol/L (98-107); Glucose 315 mg/dL (74-99); Potassium 5.3 mmol/L (3.5-5.1); Sodium 130 mmol/L (137-145)
[2021-08-22 14:22] LABS: Glucose,Whole Blood 242 mg/dL (75-99)
[2021-08-22 16:12] LABS: Glucose,Whole Blood 256 mg/dL (75-99)
[2021-08-22 21:01] LABS: Glucose,Whole Blood 193 mg/dL (75-99)
--- NOTE | 2021-08-22 21:02 | P.PN ---
Subjective Progress Note Date: 08/22/21 Principal diagnosis: Diabetic right foot ulcer/osteomyelitis Hyperglycemia without acidosis Acute renal injury 56-year-old female with history of diabetes, COPD, hypertension, hyperlipidemia and hypothyroidism; presents to the emergency department for evaluation of right foot wound; patient reports she does have history of diabetic foot ulcer which healed quite well; reports she started feeling pain a couple days ago after which she noticed an open sore with some drainage and decided to come to ER for further evaluation. Significant drainage over the last 24 hours with history of severe osteomyelitis with amputation. Patient was found to have elevated blood sugar weakness and severe foot pain X-ray left foot does not show significant osteomyelitis EKG shows sinus a 95 DE 154 QRS 88 QTc 452 CBC reveals a WBC of 7.4, hemoglobin 10.8, hematocrit 33.4 and platelet count of 385; sodium 128, potassium 4.4, BUN 31 with creatinine of 1.13, blood glucose of 577 08/22/2021 Patient is seen and evaluated resting comfortably in bed; does complain of pain in right foot Vital signs are reviewed and reveal temperature 98.6, pulse 98, respiration 18 and blood pressure 148/79 with O2 saturation of 97% on room air lab review reveals a WBC of 7.3, hemoglobin 12.0 and platelet count of 423, sodium 1:30, potassium 5.3, BUN/creatinine of 23/0.78 and blood glucoses ranging between 256- 315; CRP elevated at 5.2 ID on board and recommending to continue with IV vancomycin; Rocephin is discontinued and patient is switched to Unasyn; further recommendations once culture results are available ID recommending to monitor CRP and sed rate with plans for a bone scan if elevated Objective - Vital Signs Vital signs: Vital Signs Temp 99.0 F 08/22/21 07:25 Pulse 98 08/22/21 07:25 Resp 20 08/22/21 07:25 BP 160/78 08/22/21 07:25 Pulse Ox 98 08/22/21 07:25 Intake & Output 08/21/21 08/22/21 08/22/21 18:59 06:59 18:59 Weight 58.967 kg Other: # Voids 2 - Exam - Constitutional General appearance: Present: average body habitus, cooperative, no acute distress - EENT Eyes: Present: anicteric sclerae, EOMI, PERRLA, normal appearance ENT: Present: hearing grossly normal, normal oropharynx Ears: bilateral: normal - Neck Neck: Present: normal ROM. Absent: lymphadenopathy, rigidity, thyromegaly Carotids: negative: bruit present Thyroid: bilateral: normal size, negative: enlarged, nodule - Respiratory Respiratory: bilateral: CTA, negative: rales, rhonchi, wheezing - Cardiovascular Rhythm: regular Heart sounds: normal: S1, S2 Abnormal Heart Sounds: Absent: systolic murmur, diastolic murmur - Gastrointestinal General gastrointestinal: Present: normal bowel sounds, soft. Absent: distended, organomegaly, tenderness - Genitourinary Genitourinary Comment(s): deferred - Integumentary Integumentary: Present: normal turgor. Absent: jaundiced, rash, ulcer - Neurologic Neurologic: Present: CNII-XII intact. Absent: focal deficits - Musculoskeletal Musculoskeletal: Present: gait normal, strength equal bilaterally - Psychiatric Psychiatric: Present: A&O x's 3, appropriate affect, intact judgment & insight - Labs CBC & Chem 7: 08/22/21 08:45 08/22/21 08:45 Labs: Abnormal Lab Results - Last 24 Hours (Table) 08/21/21 08/21/21 08/22/21 Range/Units 16:26 20:42 00:36 POC Glucose (mg/dL) 50 L 450 H 421 H (75-99) mg/dL 08/22/21 08/22/21 08/22/21 Range/Units 04:50 06:02 06:38 POC Glucose (mg/dL) 120 H 109 H 120 H (75-99) mg/dL 08/22/21 Range/Units 11:23 POC Glucose (mg/dL) 286 H (75-99) mg/dL Microbiology - Last 24 Hours (Table) 08/21/21 00:00 Blood Culture - Preliminary Blood No Growth after 24 hours 08/21/21 00:04 Blood Culture - Preliminary Blood No Growth after 24 hours 08/21/21 16:24 Gram Stain - Preliminary Toe - Right First Wound Culture - Preliminary 08/21/21 16:24 Anaerobic Culture - Preliminary Toe - Right First Assessment and Plan Assessment: 1. Diabetic right foot ulcer/osteomyelitis - Patient has been started on IV Rocephin and vancomycin; blood cultures and wound cultures are ordered; consult ID for further recommendations - We will monitor CBC, CRP and pro-calcitonin 2. Hyperglycemia without acidosis; patient has received IV fluids in ED along with 10 units of Humulin R IV; we will continue; we will monitor Accu-Cheks every before meals and at bedtime with insulin sliding scale; we will plan to initiate insulin infusion if blood glucose remains elevated; patient is placed on 15 units NovoLog Mix 70/30 subcu twice a day 3. Acute renal injury; baseline creatinine is not known; we will continue with slow IV fluid and monitor renal function and electrolytes; avoid nephrotoxins and hypotension 4. Hyperlipidemia; Lipitor 40 mg by mouth daily at bedtime 5. Asthma/COPD; Symbicort inhaler 2 puffs twice a day 6. Hypothyroidism; levothyroxin 150 MCG daily 7. Hypertension; lisinopril 2.5 mg daily DVT prophylaxis; SCDs/subcu heparin CODE STATUS; full code
[2021-08-22] MEDS: METOCLOPRAMIDE 5 MG/ML 2 ML VIAL IVP PRN (21:26)
--- NOTE | 2021-08-22 22:42 | PN ---
PROGRESS NOTE redictated JIMBO / SUKHWINDERN: [id number] / MTDShaina
[2021-08-23] MEDS: AMPICILLIN-SULBACTAM 3 GM in SODIUM CHLORIDE 0.9% 100 ML IVPB SCH ×5 (00:55→23:50)
[2021-08-23] MEDS: ONDANSETRON 4 MG/2 ML VIAL IVP PRN ×4 (00:55→23:45)
[2021-08-23] MEDS: HEPARIN SODIUM,PORCINE/PF 5,000 UNIT/0.5 ML SYRINGE SQ SCH ×4 (00:56→23:42)
[2021-08-23] MEDS: LEVOTHYROXINE 75 MCG TAB PO SCH (05:54)
[2021-08-23] MEDS: METOCLOPRAMIDE 5 MG/ML 2 ML VIAL IVP PRN ×3 (05:54→20:26)
[2021-08-23 07:07] LABS: Glucose,Whole Blood 443 mg/dL (75-99)
[2021-08-23] MEDS: MULTIVITAMINS, THERA 1 EACH TAB PO SCH (07:25)
[2021-08-23] MEDS: ATORVASTATIN 40 MG TAB PO SCH (07:25)
[2021-08-23] MEDS: INSULIN ASPART (NovoLOG) 100 UNIT/ML VIAL SQ SCH ×4 (07:25→20:52)
[2021-08-23] MEDS: INSULN ASP PRT/INSULIN ASPART 100 UNIT/ML 10 ML VIAL SQ SCH ×2 (07:26→20:53)
[2021-08-23] MEDS: IPRATROPIUM 0.5 MG/2.5 ML NEBU INHALATION SCH ×4 (07:50→20:43)
[2021-08-23] MEDS: SYMBICORT 80-4.5 MCG INHALER INHALATION SCH ×2 (07:50→20:43)
[2021-08-23] MEDS ORDERED: VANCOMYCIN TROUGH DUE 1 EACH MISC MISCELLANE ONE (08:00)
--- NOTE | 2021-08-23 08:15 | PN ---
PROGRESS NOTE DATE OF SERVICE: 08/22/2021. REASON FOR FOLLOWUP: Right diabetic foot infection. INTERVAL HISTORY: The patient is afebrile. The patient is currently breathing comfortably. The patient's overall pain and discomfort to the right foot have slightly decreased. No nausea, no vomiting. No abdominal pain or diarrhea. PHYSICAL EXAMINATION: Blood pressure 127/74 with a pulse of 104, temperature 98.3. She is 98% on room air. General description is a middle-aged female lying in bed in no distress. Respiratory system: Unlabored breathing, clear to auscultation anteriorly. Heart S1, S2. Regular rate and rhythm. Abdomen soft, no tenderness. Right foot medial border wound at the base of the first toe overall swelling and redness decreased. LABS: Wound culture with Staph aureus. DIAGNOSTIC IMPRESSION AND PLAN: Patient with right diabetic foot infection with an infected callus at the right foot medial border at the base of the first toe. Wound culture is showing Staph aureus. Patient is covered with Unasyn and vancomycin. Discharge antibiotics on the basis of the culture report. Continue with supportive care. MMODL / IJN: [id number] /
[2021-08-23 09:16] LABS: African American GFR (CKD) 70 (>60 ml/min/1.73 sqM); Anion Gap 10 mmol/L; Blood Urea Nitrogen 22 mg/dL (7-17); Calcium 8.9 mg/dL (8.4-10.2); Carbon Dioxide 20 mmol/L (22-30); Chloride 100 mmol/L (98-107); Glucose 414 mg/dL (74-99); Non-African American GFR(CKD) 61 (>60 ml/min/1.73 sqM); Potassium 4.3 mmol/L (3.5-5.1); Sodium 130 mmol/L (137-145)
[2021-08-23 10:21] LABS: C Reactive Protein 5.9 mg/dL (<1.0)
[2021-08-23] MEDS: VANCOMYCIN 1,000 MG in SODIUM CHLORIDE 0.9% 250 ML IVPB SCH ×2 (10:35→20:34)
[2021-08-23 11:03] LABS: Basophils # (A) 0.01 X 10*3/uL (0.00-0.10); Basophils % (A) 0.2 %; Eosinophils # (A) 0.19 X 10*3/uL (0.04-0.35); Eosinophils % (A) 3.7 %; HCT 29.5 % (37.2-46.3); HGB 9.6 g/dL (12.0-15.0); Lymphocytes # (A) 1.12 X 10*3/uL (0.90-5.00); Lymphocytes % (A) 21.7 %; MCHC 32.5 g/dL (32.0-37.0); MCV 92.2 fL (80.0-97.0); Mean Platelet Volume 10.3 fL (9.5-12.2); Monocytes # (A) 0.47 X 10*3/uL (0.20-1.00); Monocytes % (A) 9.1 %; Neutrophils # (A) 3.37 X 10*3/uL (1.80-7.70); Neutrophils % (A) 65.1 %; Platelet Count 331 X 10*3/uL (140-440); RDW 11.7 % (11.5-14.5); WBC 5.17 X 10*3/uL (4.50-10.00)
[2021-08-23 11:32] LABS: Glucose,Whole Blood 231 mg/dL (75-99)
--- NOTE | 2021-08-23 15:36 | PN ---
PROGRESS NOTE DATE OF SERVICE: 08/23/2021 This 56-year-old woman who is being followed by Dr. Isaiah Hadley in the outpatient setting was admitted with acute diabetic right foot ulcer and osteomyelitis. The patient was started on broad-spectrum IV antibiotics. Infectious Disease Dr. Sultana is following the patient closely and he recommended antibiotics based on the culture report. The culture report done on 08/21 was reported as presumptive Staph aureus. Final report is not available at this time. No chest pain. No palpitations. No fever. PHYSICAL EXAMINATION: Alert and oriented x3. Pulse is 103, blood pressure 153/77, respiration 18, temperature 99.2, pulse ox 98% on room air. HEENT: Conjunctivae normal. NECK: No jugular venous distention. CARDIOVASCULAR: S1, S2 muffled. RESPIRATION: Breath sounds diminished at the bases. No rhonchi. No crackles. ABDOMEN: Soft. LEGS: Right leg bandaged. LABS: Hemoglobin 9.6, sodium 130, potassium 4.3, glucose 443 and 231. ASSESSMENT: 1. Acute right diabetic foot ulcer and osteomyelitis, on antibiotics. 2. Presumptive Staphylococcus aureus. Final ID pending. 3. Hyperglycemia without any acidosis with uncontrolled diabetes mellitus, type 2. 4. Acute renal injury. 5. Hyperlipidemia. 6. Asthma, chronic obstructive pulmonary disease. 7. Hypothyroidism. 8. Hypertension. RECOMMENDATIONS AND DISCUSSION: I recommend to continue current medications, continue with symptomatic treatment. Otherwise, continue the IV antibiotics. Await the final ID as indicated by Dr. Sultana. Otherwise, I would also reevaluate the insulin treatment. Will initiate basal Lantus dosage. Guarded prognosis. Further recommendations to follow. MMODL / IJN: [id number] /
[2021-08-23 16:23] LABS: Glucose,Whole Blood 292 mg/dL (75-99)
--- NOTE | 2021-08-23 16:45 | PN ---
PROGRESS NOTE DATE OF SERVICE: 08/23/2021. REASON FOR FOLLOWUP: Right diabetic foot infection. INTERVAL HISTORY: The patient is afebrile. The patient is breathing comfortably. Overall pain and discomfort to the right big toe is currently controlled. No chest pain, shortness of breath or cough. No abdominal pain. No diarrhea. PHYSICAL EXAMINATION: Blood pressure 153/77, pulse 103, temperature 99.1. She is 98% on room air. General description is a middle-aged female lying in bed in no distress. Respiratory system: Unlabored breathing, clear to auscultation anteriorly. Heart S1, S2. Regular rate and rhythm. Abdomen soft, no tenderness. Right foot is currently dressed. No obvious drainage on the dressing. LABS: Hemoglobin 11.4, white count 5.17. DIAGNOSTIC IMPRESSION AND PLAN: Patient with right diabetic foot infection. Culture with Staph aureus. There is a question of possible osteomyelitis. Patient is covered with Unasyn and vancomycin. Bone scan to rule out osteomyelitis and discharge antibiotics. Continue supportive care. MMODL / IJN: [id number] /
[2021-08-23 16:48] LABS: Erythrocyte Sedimentation Rate 80 mm/Hr (0-30)
[2021-08-23 20:40] LABS: Glucose,Whole Blood 327 mg/dL (75-99)
[2021-08-24] MEDS: AMPICILLIN-SULBACTAM 3 GM in SODIUM CHLORIDE 0.9% 100 ML IVPB SCH ×3 (05:47→17:18)
[2021-08-24] MEDS: LEVOTHYROXINE 75 MCG TAB PO SCH (05:47)
[2021-08-24] MEDS: METOCLOPRAMIDE 5 MG/ML 2 ML VIAL IVP PRN ×3 (05:51→21:52)
[2021-08-24 06:48] LABS: Glucose,Whole Blood 248 mg/dL (75-99)
[2021-08-24] MEDS: INSULIN ASPART (NovoLOG) 100 UNIT/ML VIAL SQ SCH ×4 (07:30→21:43)
[2021-08-24] MEDS: HEPARIN SODIUM,PORCINE/PF 5,000 UNIT/0.5 ML SYRINGE SQ SCH ×2 (07:32→13:55)
[2021-08-24] MEDS: SYMBICORT 80-4.5 MCG INHALER INHALATION SCH ×2 (07:41→20:27)
[2021-08-24] MEDS: IPRATROPIUM 0.5 MG/2.5 ML NEBU INHALATION SCH ×4 (07:41→20:27)
[2021-08-24 07:45] LABS: African American GFR (CKD) >90 (>60 ml/min/1.73 sqM); Anion Gap 5 mmol/L; Blood Urea Nitrogen 19 mg/dL (7-17); Calcium 8.7 mg/dL (8.4-10.2); Carbon Dioxide 25 mmol/L (22-30); Chloride 102 mmol/L (98-107); Glucose 232 mg/dL (74-99); Non-African American GFR(CKD) 84 (>60 ml/min/1.73 sqM); Potassium 4.1 mmol/L (3.5-5.1); Sodium 132 mmol/L (137-145)
[2021-08-24 08:09] LABS: Basophils % (A) 0 %; Eosinophils # (A) 0.2 k/uL (0-0.7); Eosinophils % (A) 4 %; HCT 27.6 % (34.0-46.0); Lymphocytes # (A) 1.3 k/uL (1.0-4.8); Lymphocytes % (A) 30 %; MCH 32.1 pg (25.0-35.0); MCHC 34.2 g/dL (31.0-37.0); MCV 93.9 fL (80.0-100.0); Mean Platelet Volume 8.2; Monocytes # (A) 0.3 k/uL (0-1.0); Monocytes % (A) 6 %; Neutrophils # (A) 2.4 k/uL (1.3-7.7); Neutrophils % (A) 55 %; Platelet Count 328 k/uL (150-450); RBC 2.94 m/uL (3.80-5.40); RDW 12.1 % (11.5-15.5); WBC 4.3 k/uL (3.8-10.6)
[2021-08-24 08:12] LABS: HGB 9.4 gm/dL (11.4-16.0)
[2021-08-24] MEDS: MULTIVITAMINS, THERA 1 EACH TAB PO SCH (09:47)
[2021-08-24] MEDS: ATORVASTATIN 40 MG TAB PO SCH (09:47)
[2021-08-24] MEDS: INSULN ASP PRT/INSULIN ASPART 100 UNIT/ML 10 ML VIAL SQ SCH ×2 (09:49→17:17)
[2021-08-24] MEDS: ONDANSETRON 4 MG/2 ML VIAL IVP PRN ×2 (09:55→17:43)
[2021-08-24] MEDS: VANCOMYCIN 1,000 MG in SODIUM CHLORIDE 0.9% 250 ML IVPB SCH (10:23)
[2021-08-24 12:00] LABS: Glucose,Whole Blood 207 mg/dL (75-99)
[2021-08-24 13:34] VITALS: BMI 19.8
[2021-08-24 17:07] LABS: Glucose,Whole Blood 345 mg/dL (75-99)
--- NOTE | 2021-08-24 17:20 | NM ---
EXAMINATION TYPE: NM bone 3 phase DATE OF EXAM: 08/24/2021 COMPARISON: 07/07/2015 HISTORY: Osteomyelitis right foot Delayed whole-body scanning was performed following the injection of 26 mCi Tc 99m MDP. Images were acquired 3.5 hours post injection. FINDINGS: Blood flow: There is increased radiotracer to the right foot compared to the left foot on blood flow. This is greater along the medial distal portion great toe region. Blood pool: There is focal radiotracer within the distal first digit region of the right foot. Uptake appears to be related to the soft tissues. Static images: There is focal radiotracer accumulation at the distal first right foot digit. There is diffuse increased radiotracer within the lateral tarsal region of the right foot. Some focal radiotr acer is in the distal first digit left foot. Uptake appears to be related to the resected portion of the proximal phalanx. COMPARISON: An amputation of the proximal phalanx first digit. Soft tissue swelling may be at the pre vious great toe region. IMPRESSION: 1. There is increased radiotracer accumulation at the first digit right foot on all 3 phases of the b one scan which can be compatible with osteomyelitis. Findings however could also indicate cellulitis of the soft tissues and underlying recent surgery, correlate with the timing of the great toe amputat ion. The more remote the amputation of the great toe of the higher the probability for osteomyelitis based on the three-phase bone scan findings. 2. Uptake within the lateral right foot is compatible with prior surgery repair.
[2021-08-24 21:25] LABS: Glucose,Whole Blood 149 mg/dL (75-99)
[2021-08-24] MEDS: VANCOMYCIN 1,250 MG in SODIUM CHLORIDE 0.9% 250 ML IVPB SCH (21:43)
--- NOTE | 2021-08-24 21:57 | PN ---
PROGRESS NOTE DATE OF SERVICE: 08/24/2021 REASON FOR FOLLOWUP: Right foot diabetic foot infection and concern for osteomyelitis. INTERVAL HISTORY: The patient is afebrile. The patient is currently breathing comfortably. No chest pain, shortness of breath or cough. No abdominal pain or any worsening pain to the right foot. PHYSICAL EXAMINATION: Blood pressure 126/67, pulse of 90, temperature 98.4. She is 98% on room air. General description is a middle-aged female lying in bed in no distress. Respiratory system: Unlabored breathing, clear to auscultation anteriorly. Heart S1, S2. Regular rate and rhythm. Abdomen soft, no tenderness. Right foot is currently dressed. No obvious drainage on the dressing. LABS: Hemoglobin 9.4, white count 4.3, creatinine 0.79. Sedimentation rate DIAGNOSTIC IMPRESSION AND PLAN: Patient with right big toe nonhealing wound, concern for underlying osteomyelitis confirmed on the bone scan. Wound culture showing Staph aureus with sensitivities pending. Discharge antibiotic on the basis of the findings on cultures. Continue with Unasyn and vancomycin at this point. MMODL / IJN: [id number] /
--- NOTE | 2021-08-24 23:25 | P.PN ---
Subjective Progress Note Date: 08/24/21 This is a pleasant 56-year-old female who was recently admitted with a right foot diabetic ulcer and osteomyelitis and patient maintained on IV antibiotics with infectious disease following closely. Awaiting for finalized cultures and patient also to have a bone scan which is scheduled for today. Will await bone scan report and discuss with Dr. Sultana about discharge antibiotic recommendations. Labs: White blood count is 4.3, hemoglobin is 9.4, platelets are 328 sodium is 132, potassium is 4.1, BUN is 19, creatinine is 0.79, calcium is 8.7. Review of systems: Constitutional: No reports of fatigue, fever, or chills Cardiovascular: No reports of chest pain or palpitations Respiratory: No reports of shortness of breath or cough GI: No reports of nausea, vomiting, or diarrhea : No reports of dysuria or retention Neurovascular: No reports of weakness, reports right foot discomfort although no worsening All medications have been reviewed Active Medications Albuterol Sulfate (Albuterol Nebulized 2.5 Mg/3 Ml) 2.5 mg INHALATION RT-QID PRN PRN Reason: Shortness Of Breath Atorvastatin Calcium (Atorvastatin 40 Mg Tab) 40 mg PO DAILY [facility] Last Admin: 08/24/21 09:47 Dose: 40 mg Documented by: Budesonide/Formoterol Fumarate (Symbicort 80-4.5 Mcg Inhaler) 2 puff INHALATION RT-BID [facility] Last Admin: 08/24/21 07:41 Dose: Not Given Documented by: Heparin Sodium (Porcine) (Heparin Sodium,Porcine/Pf 5,000 Unit/0.5 Ml Syringe) 5,000 unit SQ Q8HR [facility] Last Admin: 08/24/21 13:55 Dose: Not Given Documented by: Ampicillin Sodium/Sulbactam (Sodium 3 gm/ Sodium Chloride) 100 mls @ 200 mls/hr IVPB Q6HR [facility] Last Admin: 08/24/21 13:00 Dose: 200 mls/hr Documented by: Vancomycin HCl 1,250 mg/ (Sodium Chloride) 250 mls @ 125 mls/hr IVPB Q12HR [facility] Insulin Aspart (Insulin Aspart (Novolog) 100 Unit/Ml Vial) 0 unit SQ ACHS [facility]; Protocol Last Admin: 08/24/21 12:16 Dose: 3 unit Documented by: Insulin Aspart (Insuln Asp Prt/Insulin Aspart 100 Unit/Ml 10 Ml Vial) 20 unit SQ BID [facility] Last Admin: 08/24/21 09:49 Dose: 15 unit Documented by: Ipratropium [place] (Ipratropium 0.5 Mg/2.5 Ml Nebu) 0.5 mg INHALATION RT-QID [facility] Last Admin: 08/24/21 11:20 Dose: Not Given Documented by: Levothyroxine Sodium (Levothyroxine 75 Mcg Tab) 150 mcg PO DAILY@0630 [facility] Last Admin: 08/24/21 05:47 Dose: 150 mcg Documented by: Lisinopril (Lisinopril 2.5 Mg Tab) 2.5 mg PO DAILY [facility] Last Admin: 08/24/21 09:48 Dose: 2.5 mg Documented by: Lorazepam (Lorazepam 2 Mg/Ml Inj) 0.5 mg IV Q6HR PRN PRN Reason: Anxiety Metoclopramide HCl (Metoclopramide 5 Mg/Ml 2 Ml Vial) 10 mg IVP Q8H PRN PRN Reason: Nausea And Vomiting Last Admin: 08/24/21 13:02 Dose: 10 mg Documented by: Morphine Sulfate (Morphine Sulfate 4 Mg/Ml Syringe) 4 mg IV Q4HR PRN PRN Reason: Severe Pain Last Admin: 08/22/21 09:18 Dose: 4 mg Documented by: Multivitamins (Multivitamins, Thera 1 Each Tab) 1 each PO DAILY [facility] Last Admin: 08/24/21 09:47 Dose: 1 each Documented by: Naloxone HCl (Naloxone 0.4 Mg/Ml 1 Ml Vial) 0.2 mg IV Q2M PRN PRN Reason: Opioid Reversal Ondansetron HCl (Ondansetron 4 Mg/2 Ml Vial) 4 mg IVP Q6HR PRN PRN Reason: Nausea And Vomiting Last Admin: 08/24/21 09:55 Dose: 4 mg Documented by: Physical exam: Gen: This is a 56-year-old female awake, alert and oriented 3, well-developed, well-nourished. Temp is 98.2F, pulse is 88, respirations are 16, blood pressure is 136/75, oxygen saturation is 96% on room air HEENT: Head is atraumatic, normocephalic. Pupils equal, round. Sclerae is anicteric. NECK: Supple. No JVD. No lymphadenopathy. No thyromegaly. LUNGS: Diminished breath sounds bilaterally with no wheezing or rhonchi noted. no intercostal retractions noted. HEART: S1, S2 present ABDOMEN: Soft. Bowel sounds are present. No masses. No tenderness. EXTREMITIES: No pedal edema. No calf tenderness. right foot currently covered NEUROLOGICAL: Patient is awake, alert and oriented x3. Cranial nerves 2 through 12 are grossly intact. Assessment: Acute right diabetic foot ulcer and osteomyelitis, on antibiotics Presumptive Staphylococcus aureus, final ID pending Hyperglycemia without any acidosis with uncontrolled diabetes mellitus type 2 Acute renal injury Hyperlipidemia asthma, chronic obstructive pulmonary disease Hypothyroidism Hypertension Full code plan: Recommend to continue current medications, management, and symptomatic treatment. She is scheduled to receive a bone scan today with infectious disease following closely and awaiting for finalized cultures to determine discharge antibiotics. Will discuss with ID about discharge planning. Recommend continue with Accu-Cheks before meals and at bedtime. Guarded prognosis. Possible discharge in 24 hours. Objective - Vital Signs Vital signs: Vital Signs Temp 98.2 F 08/24/21 07:39 Pulse 88 08/24/21 07:39 Resp 16 08/24/21 07:39 BP 136/75 08/24/21 07:39 Pulse Ox 95 08/24/21 07:40 Intake & Output 08/23/21 08/24/21 08/24/21 18:59 06:59 18:59 Intake Total 400 Balance 400 Intake: Oral 400 Other: # Voids 2 1 - Labs CBC & Chem 7: 08/24/21 06:34 08/24/21 06:34 Labs: Abnormal Lab Results - Last 24 Hours (Table) 08/23/21 08/23/21 08/23/21 Range/Units 06:26 06:26 06:26 RBC 3.20 L (4.10-5.20) X 10*6/uL Hgb 9.6 L (12.0-15.0) g/dL Hct 29.5 L (37.2-46.3) % ESR 80 H (0-30) mm/Hr Sodium (137-145) mmol/L BUN (7-17) mg/dL Glucose (74-99) mg/dL POC Glucose (mg/dL) (75-99) mg/dL Hemoglobin A1c 11.2 H (4.0-6.0) % C-Reactive Protein (<1.0) mg/dL Procalcitonin 0.34 H (0.02-0.09) ng/mL 08/23/21 08/23/21 08/23/21 Range/Units 08:21 11:31 16:22 RBC (4.10-5.20) X 10*6/uL Hgb (12.0-15.0) g/dL Hct (37.2-46.3) % ESR (0-30) mm/Hr Sodium (137-145) mmol/L BUN (7-17) mg/dL Glucose (74-99) mg/dL POC Glucose (mg/dL) 231 H 292 H (75-99) mg/dL Hemoglobin A1c (4.0-6.0) % C-Reactive Protein 5.9 H (<1.0) mg/dL Procalcitonin (0.02-0.09) ng/mL 08/23/21 08/24/21 08/24/21 Range/Units 20:39 06:34 06:34 RBC 2.94 L (4.10-5.20) X 10*6/uL Hgb 9.4 L D (12.0-15.0) g/dL Hct 27.6 L (37.2-46.3) % ESR (0-30) mm/Hr Sodium 132 L (137-145) mmol/L BUN 19 H (7-17) mg/dL Glucose 232 H (74-99) mg/dL POC Glucose (mg/dL) 327 H (75-99) mg/dL Hemoglobin A1c (4.0-6.0) % C-Reactive Protein (<1.0) mg/dL Procalcitonin (0.02-0.09) ng/mL 08/24/21 Range/Units 06:47 RBC (4.10-5.20) X 10*6/uL Hgb (12.0-15.0) g/dL Hct (37.2-46.3) % ESR (0-30) mm/Hr Sodium (137-145) mmol/L BUN (7-17) mg/dL Glucose (74-99) mg/dL POC Glucose (mg/dL) 248 H (75-99) mg/dL Hemoglobin A1c (4.0-6.0) % C-Reactive Protein (<1.0) mg/dL Procalcitonin (0.02-0.09) ng/mL Microbiology - Last 24 Hours (Table) 08/21/21 00:00 Blood Culture - Preliminary Blood No Growth after 72 hours 08/21/21 00:04 Blood Culture - Preliminary Blood No Growth after 72 hours 08/21/21 16:24 Anaerobic Culture - Preliminary Toe - Right First
[2021-08-25] MEDS: HEPARIN SODIUM,PORCINE/PF 5,000 UNIT/0.5 ML SYRINGE SQ SCH ×3 (00:38→16:23)
[2021-08-25] MEDS: AMPICILLIN-SULBACTAM 3 GM in SODIUM CHLORIDE 0.9% 100 ML IVPB SCH ×2 (00:38→06:18)
[2021-08-25 06:16] LABS: Glucose,Whole Blood 224 mg/dL (75-99)
[2021-08-25] MEDS: LEVOTHYROXINE 75 MCG TAB PO SCH (06:18)
[2021-08-25] MEDS: INSULIN ASPART (NovoLOG) 100 UNIT/ML VIAL SQ SCH ×4 (06:18→21:47)
[2021-08-25] MEDS: ONDANSETRON 4 MG/2 ML VIAL IVP PRN ×2 (06:18→16:23)
[2021-08-25] MEDS: SYMBICORT 80-4.5 MCG INHALER INHALATION SCH ×2 (08:15→20:47)
[2021-08-25] MEDS: IPRATROPIUM 0.5 MG/2.5 ML NEBU INHALATION SCH ×4 (08:15→20:47)
[2021-08-25 08:42] LABS: African American GFR (CKD) >90 (>60 ml/min/1.73 sqM); Anion Gap 7 mmol/L; Blood Urea Nitrogen 17 mg/dL (7-17); Calcium 8.9 mg/dL (8.4-10.2); Carbon Dioxide 25 mmol/L (22-30); Chloride 103 mmol/L (98-107); Glucose 146 mg/dL (74-99); Non-African American GFR(CKD) 81 (>60 ml/min/1.73 sqM); Potassium 3.6 mmol/L (3.5-5.1); Sodium 135 mmol/L (137-145)
[2021-08-25] MEDS: INSULN ASP PRT/INSULIN ASPART 100 UNIT/ML 10 ML VIAL SQ SCH ×2 (09:01→18:03)
[2021-08-25] MEDS: ATORVASTATIN 40 MG TAB PO SCH (09:04)
[2021-08-25] MEDS: MULTIVITAMINS, THERA 1 EACH TAB PO SCH (09:04)
[2021-08-25] MEDS: VANCOMYCIN 1,250 MG in SODIUM CHLORIDE 0.9% 250 ML IVPB SCH (09:29)
[2021-08-25] MEDS: METOCLOPRAMIDE 5 MG/ML 2 ML VIAL IVP PRN (09:29)
[2021-08-25 11:20] LABS: Glucose,Whole Blood 213 mg/dL (75-99)
[2021-08-25 13:13] LABS: Glucose,Whole Blood 153 mg/dL (75-99)
[2021-08-25] MEDS ORDERED: ACETAMINOPHEN TAB 325 MG TAB PO PRN (14:40)
[2021-08-25] MEDS: HYDROcodone/APAP 5-325MG 1 EACH TAB PO PRN ×2 (15:27→21:46)
--- NOTE | 2021-08-25 15:51 | P.PN ---
Subjective Progress Note Date: 08/25/21 This is a pleasant 56-year-old female who was recently admitted with a right foot diabetic ulcer and osteomyelitis and patient maintained on IV antibiotics with infectious disease following closely. Awaiting for finalized cultures and patient also to have a bone scan which is scheduled for today. Will await bone scan report and discuss with Dr. Sultana about discharge antibiotic recommendations. 08/25/2021 Patient is seen and evaluated in follow-up this morning and cultures have finalized showing Staphylococcus aureus with infectious disease following closely. Plan is for patient to receive PICC line today and continue with 5 weeks of antibiotic therapy via IV cefazolin along with oral Flagyl and close outpatient monitoring and follow-up with infectious disease. Patient having some right foot pain and will add oral pain medications. Case management following and arranging for home care and IV antibiotics and discharge planning needs. Anticipate discharge in 24 hours. Labs: sodium is 135, potassium is 3.6, BUN is 17, creatinine is 0.81, calcium is 8.9. Review of systems: Constitutional: No reports of fatigue, fever, or chills Cardiovascular: No reports of chest pain or palpitations Respiratory: No reports of shortness of breath or cough GI: No reports of nausea, vomiting, or diarrhea : No reports of dysuria or retention Neurovascular: No reports of weakness, reports right foot discomfort although no worsening All medications have been reviewed Active Medications Acetaminophen (Acetaminophen Tab 325 Mg Tab) 650 mg PO Q6HR PRN PRN Reason: Fever and/ or Pain Hydrocodone Bitart/Acetaminophen (Hydrocodone/Apap 5-325mg 1 Each Tab) 1 each PO Q6HR PRN PRN Reason: Pain Last Admin: 08/25/21 15:27 Dose: 1 each Documented by: Albuterol Sulfate (Albuterol Nebulized 2.5 Mg/3 Ml) 2.5 mg INHALATION RT-QID PRN PRN Reason: Shortness Of Breath Atorvastatin Calcium (Atorvastatin 40 Mg Tab) 40 mg PO DAILY [facility] Last Admin: 08/25/21 09:04 Dose: 40 mg Documented by: Budesonide/Formoterol Fumarate (Symbicort 80-4.5 Mcg Inhaler) 2 puff INHALATION RT-BID [facility] Last Admin: 08/25/21 08:15 Dose: Not Given Documented by: Heparin Sodium (Porcine) (Heparin Sodium,Porcine/Pf 5,000 Unit/0.5 Ml Syringe) 5,000 unit SQ Q8HR [facility] Last Admin: 08/25/21 09:04 Dose: 5,000 unit Documented by: Cefazolin Sodium 2 gm/ Sodium (Chloride) 50 mls @ 100 mls/hr IVPB Q8HR [facility] Insulin Aspart (Insulin Aspart (Novolog) 100 Unit/Ml Vial) 0 unit SQ ACHS [facility]; Protocol Last Admin: 08/25/21 13:22 Dose: 1 unit Documented by: Insulin Aspart (Insuln Asp Prt/Insulin Aspart 100 Unit/Ml 10 Ml Vial) 20 unit SQ BID [facility] Last Admin: 08/25/21 09:01 Dose: 15 unit Documented by: Ipratropium [place] (Ipratropium 0.5 Mg/2.5 Ml Nebu) 0.5 mg INHALATION RT-QID [facility] Last Admin: 08/25/21 11:33 Dose: Not Given Documented by: Levothyroxine Sodium (Levothyroxine 75 Mcg Tab) 150 mcg PO DAILY@0630 [facility] Last Admin: 08/25/21 06:18 Dose: 150 mcg Documented by: Lisinopril (Lisinopril 2.5 Mg Tab) 2.5 mg PO DAILY [facility] Last Admin: 08/25/21 09:26 Dose: 2.5 mg Documented by: Lorazepam (Lorazepam 2 Mg/Ml Inj) 0.5 mg IV Q6HR PRN PRN Reason: Anxiety Metoclopramide HCl (Metoclopramide 5 Mg/Ml 2 Ml Vial) 10 mg IVP Q8H PRN PRN Reason: Nausea And Vomiting Last Admin: 08/25/21 09:29 Dose: 10 mg Documented by: Metronidazole (Metronidazole 500 Mg Tab) 500 mg PO TID [facility] Morphine Sulfate (Morphine Sulfate 4 Mg/Ml Syringe) 4 mg IV Q4HR PRN PRN Reason: Severe Pain Last Admin: 08/22/21 09:18 Dose: 4 mg Documented by: Multivitamins (Multivitamins, Thera 1 Each Tab) 1 each PO DAILY [facility] Last Admin: 08/25/21 09:04 Dose: 1 each Documented by: Naloxone HCl (Naloxone 0.4 Mg/Ml 1 Ml Vial) 0.2 mg IV Q2M PRN PRN Reason: Opioid Reversal Ondansetron HCl (Ondansetron 4 Mg/2 Ml Vial) 4 mg IVP Q6HR PRN PRN Reason: Nausea And Vomiting Last Admin: 08/25/21 06:18 Dose: 4 mg Documented by: Physical exam: Gen: This is a 56-year-old female awake, alert and oriented 3, well-developed, well-nourished. Temp is 97.4 F, pulse is 78, respirations are 16, blood pressure is 131/74, oxygen saturation is 96% on room air HEENT: Head is atraumatic, normocephalic. Pupils equal, round. Sclerae is anicteric. NECK: Supple. No JVD. No lymphadenopathy. No thyromegaly. LUNGS: Diminished breath sounds bilaterally with no wheezing or rhonchi noted. no intercostal retractions noted. HEART: S1, S2 present ABDOMEN: Soft. Bowel sounds are present. No masses. No tenderness. EXTREMITIES: No pedal edema. No calf tenderness. right foot currently covered NEUROLOGICAL: Patient is awake, alert and oriented x3. Cranial nerves 2 through 12 are grossly intact. Assessment: Acute right diabetic foot ulcer and osteomyelitis, on antibiotics Staphylococcus aureus, and finalized cultures Hyperglycemia without any acidosis with uncontrolled diabetes mellitus type 2 Acute renal injury Hyperlipidemia asthma, chronic obstructive pulmonary disease Hypothyroidism Hypertension Full code plan: Recommend to continue current medications, management, and symptomatic víctor atment. bone scan confirms osteomyelitis. ID recommending PICC line placement and IV antibiotic therapy in the form of cefazolin along with oral Flagyl. Case management following an setting up home care with infusions and patient unable to miss this evening's dose and anticipate discharge in 24 hours. Recommend continue with Accu-Cheks before meals and at bedtime. Guarded prognosis. Objective - Vital Signs Vital signs: Vital Signs Temp 97.4 F L 08/25/21 07:52 Pulse 78 08/25/21 07:52 Resp 16 08/25/21 07:52 BP 131/74 08/25/21 07:52 Pulse Ox 96 08/25/21 07:52 Intake & Output 08/24/21 08/25/21 08/25/21 18:59 06:59 18:59 Weight 58.967 kg Other: # Voids 3 1 - Labs CBC & Chem 7: 08/24/21 06:34 08/25/21 08:07 Labs: Abnormal Lab Results - Last 24 Hours (Table) 08/24/21 08/24/21 08/25/21 Range/Units 17:06 21:19 06:13 Sodium (137-145) mmol/L Glucose (74-99) mg/dL POC Glucose (mg/dL) 345 H 149 H 224 H (75-99) mg/dL 08/25/21 08/25/21 08/25/21 Range/Units 08:07 11:18 13:11 Sodium 135 L (137-145) mmol/L Glucose 146 H (74-99) mg/dL POC Glucose (mg/dL) 213 H 153 H (75-99) mg/dL Microbiology - Last 24 Hours (Table) 08/21/21 00:00 Blood Culture - Preliminary Blood No Growth after 96 hours 08/21/21 00:04 Blood Culture - Preliminary Blood No Growth after 96 hours 08/21/21 16:24 Gram Stain - Final Toe - Right First Wound Culture - Final Staphylococcus aureus
[2021-08-25] MEDS: metroNIDAZOLE 500 MG TAB PO SCH ×2 (16:23→21:47)
--- NOTE | 2021-08-25 16:26 | IR ---
EXAMINATION TYPE: IR cvc insert >=5 years DATE OF EXAM: 08/25/2021 COMPARISON: NONE CLINICAL HISTORY: Osteomyelitis Needs long-term intravenous access for antibiotics. PROCEDURE: Hand hygiene obtained with soap and water and alcohol-based hand rub. After informed consent, the skin overlying the right basilic vein was localized with ultrasound and n oted to be compressible and patent. An ultrasound image was obtained and submitted on the patient's chart. The overlying skin was prepped and draped and Lidocaine was used for local anesthesia. A ski n meme was made with a scalpel. Access was gained to the vein under ultrasound guidance with a 21 ga uge needle and a 0.018 inch wire was advanced. Access site was dilated with Peel-Away sheath and cat heter tailored to the appropriate length and advanced such that the distal tip is at the cavoatrial j unction. Spot image was obtained verifying placement. Catheter was fixed to the skin and a sterile dressing was placed following hemostasis. Catheter was aspirated and flushed with saline. Patient w as discharged in stable condition without complication. Maximal barrier technique is utilized. Ultra sound image is documented on the chart. Ultrasound used with sterile technique. Fluoro time and fluoroscopic images submitted to document procedure: 0.6 minutes fluoroscopy time, 16 5 intraoperative images document the procedure IMPRESSION: STATUS POST ULTRASOUND AND FLUOROSCOPIC GUIDED PICC LINE PLACEMENT, READY FOR USE. THIS PROCEDURE WAS PERFORMED BY THE UNDERSIGNED.
--- NOTE | 2021-08-25 16:31 | PN ---
PROGRESS NOTE DATE OF SERVICE: 08/25/2021 REASON FOR FOLLOWUP: Right foot diabetic foot wound and concern for acute osteomyelitis secondary to MSSA. INTERVAL HISTORY: The patient is afebrile. Patient is breathing comfortably. Denies any chest pain, shortness of breath or cough. No abdominal pain. No diarrhea or any worsening pain to the right foot wound area. PHYSICAL EXAMINATION: Blood pressure 131/74, pulse of 78, temperature is 97.4. She is 96% on room air. General description is a middle-aged female up in the bed in no distress. Respiratory system: Unlabored breathing, clear to auscultation anteriorly. Heart S1, S2. Regular rate and rhythm. Abdomen soft, no tenderness. Right foot is currently dressed. No obvious drainage on the dressing. LABS: Creatinine 0.8. Wound culture with MSSA. cultures are pending. Bone scan suspicious for osteomyelitis. DIAGNOSTIC IMPRESSION AND PLAN: Patient with right foot wound at the base of the first metatarsal head with underlying osteomyelitis on the bone scan. Culture with MSSA. Did have elevated sedimentation rate. She will get a PICC line. Antibiotic will be adjusted to cefazolin 2 grams q.8 hours along with oral Flagyl for 6 weeks and close outpatient followup. Questions and concerns were answered. MMODL / IJN: [id number] /
[2021-08-25 18:00] LABS: Glucose,Whole Blood 284 mg/dL (75-99)
[2021-08-25 21:43] LABS: Glucose,Whole Blood 133 mg/dL (75-99)
[2021-08-26 00:15] VITALS: RESP 16
[2021-08-26] MEDS: HEPARIN SODIUM,PORCINE/PF 5,000 UNIT/0.5 ML SYRINGE SQ SCH ×2 (00:23→07:53)
[2021-08-26] MEDS: ONDANSETRON 4 MG/2 ML VIAL IVP PRN (00:33)
[2021-08-26] MEDS ORDERED: DICLOFENAC SODIUM GEL 100 GM TUBE TOPICAL PRN (03:07)
[2021-08-26 06:12] LABS: Glucose,Whole Blood 112 mg/dL (75-99)
[2021-08-26] MEDS: LEVOTHYROXINE 75 MCG TAB PO SCH (06:13)
[2021-08-26] MEDS: INSULIN ASPART (NovoLOG) 100 UNIT/ML VIAL SQ SCH (06:17)
[2021-08-26 07:48] VITALS: BP 147/75; PULSE 73; TEMP 97.6
[2021-08-26] MEDS: MULTIVITAMINS, THERA 1 EACH TAB PO SCH (07:55)
[2021-08-26] MEDS: ATORVASTATIN 40 MG TAB PO SCH (07:55)
[2021-08-26] MEDS: metroNIDAZOLE 500 MG TAB PO SCH (07:55)
[2021-08-26] MEDS: INSULN ASP PRT/INSULIN ASPART 100 UNIT/ML 10 ML VIAL SQ SCH (07:55)
[2021-08-26] MEDS ORDERED: VANCOMYCIN TROUGH DUE 1 EACH MISC MISCELLANE ONE (08:00)
[2021-08-26] MEDS: HYDROcodone/APAP 5-325MG 1 EACH TAB PO PRN (08:00)
[2021-08-26 08:16] LABS: African American GFR (CKD) >90 (>60 ml/min/1.73 sqM); Anion Gap 7 mmol/L; Blood Urea Nitrogen 15 mg/dL (7-17); Carbon Dioxide 24 mmol/L (22-30); Chloride 105 mmol/L (98-107); Glucose 116 mg/dL (74-99); Non-African American GFR(CKD) 79 (>60 ml/min/1.73 sqM); Potassium 3.8 mmol/L (3.5-5.1); Sodium 136 mmol/L (137-145)
[2021-08-26] MEDS: SYMBICORT 80-4.5 MCG INHALER INHALATION SCH (08:48)
[2021-08-26] MEDS: IPRATROPIUM 0.5 MG/2.5 ML NEBU INHALATION SCH (08:49)
--- NOTE | 2021-08-26 11:11 | P.DS ---
Providers Date of admission: 08/20/21 23:31 Expected date of discharge: 08/26/21 Attending physician: Isaiah Hadley Consults: 08/21/21 04:41 Consult Physician Urgent Consulting Provider: Hilda Sultana Consult Reason/Comments: right foot diabetic ulcer, infection Do you want consulting provider notified?: Yes Primary care physician: Isaiah Hadley Hospital Course: Patient is a 56-year-old female who was admitted with a right foot diabetic ulcer and osteomyelitis. Infectious disease, Dr. Sultana was consulted for recommendations on IV antibiotics. Wound cultures showed Staphylococcus aureus with infectious disease following closely. PICC line was initiated IV antibiotic therapy at home for 5 weeks, IV cefazolin along with oral Flagyl per infectious disease. Assessment: Osteomyelitis, secondary to right foot diabetic ulcer Wound positive for Staphylococcus aureus Hyperglycemia secondary to uncontrolled diabetes mellitus type 2 Acute renal injury Hyperlipidemia chronic obstructive pulmonary disease Hypothyroidism Hypertension Full code Health Concerns: multiple comorbidities Pertinent Studies: 08/21/2021- XRay of Right foot- negative for fracture and osteomyelitis, see radiologist dictation 08/24/2021- NM right foot bone scan- increased radiotracer accumulation at first digit of right foot suggesting osteomyelitis, see radiology dictation. 08/21/2021- Wound culture of Right foot first digit- positive for staphylococcus aureus. Procedures: 08/25/2021- PICC line inserted into Right upper arm, see dictation. Patient Condition at Discharge: Fair Plan - Discharge Summary Discharge Rx Participant: No New Discharge Prescriptions: New metroNIDAZOLE [Flagyl] 500 mg PO TID 35 Days #105 tab Continue Insulin Aspart [NovoLOG] See Protocol SQ TID-W/MEALS PRN PRN Reason: HYPERGLYCEMIA Levothyroxine Sodium [Euthyrox] 150 mcg PO DAILY Rosuvastatin [Crestor] 20 mg PO DAILY Acetaminophen Tab [Tylenol] 1,500 mg PO BID PRN PRN Reason: Pain Fluticasone/Umeclidin/Vilanter [Trelegy Ellipta 100-62.5-25] 1 puff INHALATION RT-DAILY Multivitamins, Thera [Multivitamin (formulary)] 1 tab PO DAILY lisinopriL [Zestril] 2.5 mg PO DAILY Albuterol Inhaler [Ventolin Hfa Inhaler] 2 puff INHALATION RT-QID PRN PRN Reason: Shortness Of Breath Changed Insulin NPH Hum/Reg Insulin Hm [NovoLIN 70-30 100 UNIT/ML VIAL] 20 unit SQ BID #0 Discharge Medication List Acetaminophen Tab [Tylenol] 1,500 mg PO BID PRN 08/20/21 [History] Albuterol Inhaler [Ventolin Hfa Inhaler] 2 puff INHALATION RT-QID PRN 08/20/21 [History] Fluticasone/Umeclidin/Vilanter [Trelegy Ellipta 100-62.5-25] 1 puff INHALATION RT-DAILY 08/20/21 [History] Insulin Aspart [NovoLOG] See Protocol SQ TID-W/MEALS PRN 08/20/21 [History] Levothyroxine Sodium [Euthyrox] 150 mcg PO DAILY 08/20/21 [History] Multivitamins, Thera [Multivitamin (formulary)] 1 tab PO DAILY 08/20/21 [History] Rosuvastatin [Crestor] 20 mg PO DAILY 08/20/21 [History] lisinopriL [Zestril] 2.5 mg PO DAILY 08/20/21 [History] Insulin NPH Hum/Reg Insulin Hm [NovoLIN 70-30 100 UNIT/ML VIAL] 20 unit SQ BID #0 08/25/21 [Rx] metroNIDAZOLE [Flagyl] 500 mg PO TID 35 Days #105 tab 08/25/21 [Rx] Follow up Appointment(s)/Referral(s): Isaiah Hadley MD [Primary Care Provider] - 08/31/21 2:30 pm [facility], [NON-STAFF] - [facility], [REFERRING] - Hilda Sultana MD [STAFF PHYSICIAN] - [facility] - As Needed (Contacted regarding possible supplies for wound care. ) Activity/Diet/Wound Care/Special Instructions: [employer] - [phone] - case mgr faxed a request for a new glucometer and supplies. They will mail patient an agreement form that must be signed and mailed back. The new glucometer and testing supplies will be mailed to the patient's house. Please call them if you do not hear anything within 2 days of discharge from the hospital. Activity Limited until follow-up Follow-up with primary care on discharge Continue taking medications as prescribed Continue with home care and IV antibiotics per infectious disease Follow-up with infectious disease Dr. Sultana on discharge Continue monitoring blood sugars before meals and at bedtime Continue consistent carb diet Discharge Disposition: HOME WITH HOME HEALTH SERVICES
== END 2021-08-26 09:24 | disposition home health service (06) | DRG 638 ==
LOC: EC 19:44 → 4SSUR 23:31 → 6PED 08-25 02:18
PROVIDERS: ADMIT Family Medicine; ATTEND Family Medicine
PROC: 02HV33Z Insertion of Infusion Device into Superior Vena Cava, Percutaneous Approach (ICD-10-PCS; principal; 2021-08-25 11:00)
DX: E11.69 Type 2 diabetes mellitus with other specified complication (principal); M86.9 Osteomyelitis, unspecified; E11.621 Type 2 diabetes mellitus with foot ulcer; E03.9 Hypothyroidism, unspecified; E11.628 Type 2 diabetes mellitus with other skin complications; E11.65 Type 2 diabetes mellitus with hyperglycemia; E78.5 Hyperlipidemia, unspecified; F17.200 Nicotine dependence, unspecified, uncomplicated; F41.9 Anxiety disorder, unspecified; I10 Essential (primary) hypertension; J44.9 Chronic obstructive pulmonary disease, unspecified; L08.9 Local infection of the skin and subcutaneous tissue, unspecified; L97.519 Non-pressure chronic ulcer of other part of right foot with unspecified severity; M79.7 Fibromyalgia; N17.9 Acute kidney failure, unspecified; Z20.822 Contact with and (suspected) exposure to COVID-19; Z79.4 Long term (current) use of insulin; Z79.51 Long term (current) use of inhaled steroids; Z79.890 Hormone replacement therapy; Z79.899 Other long term (current) drug therapy; Z89.511 Acquired absence of right leg below knee; Z90.710 Acquired absence of both cervix and uterus; Z88.2 Allergy status to sulfonamides; B95.61 Methicillin susceptible Staphylococcus aureus infection as the cause of diseases classified elsewhere
CPT/HCPCS: 36415; 36573; 78315; 80048; 80053; 80202; 83036; 83735; 83880; 84100; 84145; 84484; 85025; 85610; 85652; 85730; 86140; 87040; 87070; 87075; 87077; 87186; 87205; 87635; 93005; 94640; 94760; 96365; 99285

== ENCOUNTER → 2022-02-01 | Outpatient (CLI) | payer OTHER ==
[2022-02-02 00:17] LABS: African American GFR (CKD) 65.3 (60.0-200.0); Albumin 3.7 g/dL (3.8-4.9); Albumin/Globulin Ratio 1.18 (1.60-3.17); Anion Gap 11.1 mmol/L (10.00-18.00); BUN/Creat Ratio 15.87 Ratio (12.00-20.00); Blood Urea Nitrogen 17.3 mg/dL (9.0-27.0); Calcium 9.3 mg/dL (8.7-10.3); Carbon Dioxide 21.7 mmol/L (20.0-27.5); Globulin 3.2 g/dL (1.6-3.3); Non-African American GFR(CKD) 56.3 (60.0-200.0); Potassium 4.2 mmol/L (3.5-5.5); Total Bilirubin 0.2 mg/dL (0.30-1.20); Total Protein 6.9 g/dL (6.2-8.2)
[2022-02-02 00:59] LABS: Basophils # (A) 0.04 X 10*3/uL (0.00-0.10); Basophils % (A) 0.3 %; Eosinophils # (A) 0.25 X 10*3/uL (0.04-0.35); HCT 38.6 % (37.2-46.3); HGB 12.2 g/dL (12.0-15.0); Immature Grans, Automated 0.4 %; Lymphocytes # (A) 2.06 X 10*3/uL (0.90-5.00); Lymphocytes % (A) 16.6 %; MCH 29.9 pg (27.0-32.0); MCHC 31.6 g/dL (32.0-37.0); MCV 94.6 fL (80.0-97.0); Mean Platelet Volume 10.5 fL (9.5-12.2); Monocytes # (A) 0.54 X 10*3/uL (0.20-1.00); Monocytes % (A) 4.3 %; NRBC Per 100 WBC 0 /100 WBCS (0.0-0.0); Neutrophils % (A) 76.4 %; Platelet Count 345 X 10*3/uL (140-440); RBC 4.08 X 10*6/uL (4.10-5.20); WBC 12.44 X 10*3/uL (4.50-10.00)
== END | disposition home or self-care (01) ==
LOC: LABWHC1 14:07
PROVIDERS: ATTEND Family Medicine
DX: I10 Essential (primary) hypertension (principal)
CPT/HCPCS: 36415; 80053; 85025; 93005

== ENCOUNTER 2022-02-02 07:28 | Inpatient (IN) | payer OTHER ==
[2022-02-02] MEDS ORDERED: SODIUM CHLORIDE 0.9% 2,000 ML IV STA (07:50)
--- NOTE | 2022-02-02 08:54 | ED ---
Female Urogenital HPI - General Chief complaint: Urogenital Stated complaint: abd pain Time Seen by Provider: 02/02/22 07:30 Source: EMS Mode of arrival: EMS Limitations: no limitations - History of Present Illness Initial comments: 56-year-old female past history of COPD, diabetes, hypertension presents to the emergency department with concern for urinary tract infection and constipation. Patient recently treated for a urinary tract infection. She finished Macrobid on Monday. Reports that her symptoms all came right back after stopping them. She has suprapubic discomfort and decrease in urination. Reports that she only went a small amount of urine yesterday. She also states that she hasn't had a bowel movement in 2 days. She has not taken anything to assist herself in having one. Denies any fevers. No nausea or vomiting. Patient did see her primary care yesterday for preop laboratory studies. Denies cough or shortness of breath. No other alleviating, precipitating or modifying factors - Related Data Home Medications Medication Instructions Recorded Confirmed Acetaminophen Tab [Tylenol] 2,000 mg PO BID PRN 08/20/21 02/02/22 Fluticasone/Umeclidin/Vilanter 1 puff INHALATION RT-DAILY 08/20/21 02/02/22 [Trelegy Ellipta 100-62.5-25] Insulin Aspart [NovoLOG] See Protocol SQ TID-W/MEALS PRN 08/20/21 02/02/22 Multivitamins, Thera [Multivitamin 1 tab PO DAILY 08/20/21 02/02/22 (formulary)] Rosuvastatin [Crestor] 20 mg PO DAILY 08/20/21 02/02/22 Clotrimazole Cream [Lotrimin Cream] 1 applic TOPICAL DAILY 02/02/22 02/02/22 Fluticasone Nasal [place] [Flonase 1 spray EA NOSTRIL DAILY 02/02/22 02/02/22 Nasal [place]] Insulin Glargine,Hum.rec.anlog 25 unit SQ DAILY 02/02/22 02/02/22 [Lantus Solostar Pen] Levothyroxine Sodium [Synthroid] 175 mcg PO DAILY 02/02/22 02/02/22 buPROPion XL [Wellbutrin XL] 150 mg PO DAILY 04/27/22 04/27/22 traZODone HCL 50 mg PO HS 02/02/22 02/02/22 Allergies Allergy/AdvReac Type Severity Reaction Status Date / Time Sulfa (Sulfonamide Allergy Rash/Hives Verified 02/02/22 08:18 Antibiotics) Review of Systems ROS Statement: Those systems with pertinent positive or pertinent negative responses have been documented in the HPI. ROS Other: All systems not noted in ROS Statement are negative. Past Medical History Past Medical History: COPD, Diabetes Mellitus, Fibromyalgia, GERD/Reflux, Hypertension, Osteoarthritis (OA), Thyroid Disorder Additional Past Medical History / Comment(s): NEUROPATHY BILATERAL FEET, -DDD NECK AND LOWER BACK, hiatal hernia, no need for BP med anymore, hepatitis as a kid, fell & fx. left wrist 11-05-18-wearing splint History of Any Multi-Drug Resistant Organisms: MRSA Date of last positivie culture/infection: 05/2016 MDRO Source:: rt great toe Past Surgical History: Adenoidectomy, Back Surgery, Bladder Surgery, Hysterect stan, Orthopedic Surgery, Tonsillectomy, Tubal Ligation Additional Past Surgical History / Comment(s): Debridement R foot, PICC line/later removed, bladder suspension, exploratory laparotomy, rt great toe amputation, pins right feet, cataracts removed Past Anesthesia/Blood Transfusion Reactions: No Reported Reaction Additional Past Anesthesia/Blood Transfusion Reaction / Comment(s): . Past Psychological History: Anxiety Smoking Status: Current every day smoker Past Alcohol Use History: None Reported, Rare Past Drug Use History: None Reported - Past Family History Mother Family Medical History: No Reported History Additional Family Medical History / Comment(s): Mother has back problems. She is 73 yrs old. Father Additional Family Medical History / Comment(s): at 26yrs old--accident at work General Exam Limitations: no limitations General appearance: alert, in no apparent distress Head exam: Present: atraumatic, normocephalic, normal inspection Eye exam: Present: normal appearance, PERRL, EOMI. Absent: scleral icterus, conjunctival injection, periorbital swelling ENT exam: Present: normal exam, mucous membranes moist Neck exam: Present: normal inspection. Absent: tenderness, meningismus, lymphadenopathy Respiratory exam: Present: normal lung sounds bilaterally. Absent: respiratory distress, wheezes, rales, rhonchi, stridor Cardiovascular Exam: Present: regular rate, normal rhythm, normal heart sounds. Absent: systolic murmur, diastolic murmur, rubs, gallop, clicks GI/Abdominal exam: Present: soft, tenderness (suprapubic), normal bowel sounds. Absent: distended, guarding, rebound, rigid Extremities exam: Present: normal inspection, full ROM, normal capillary refill. Absent: tenderness, pedal edema, joint swelling, calf tenderness Back exam: Present: normal inspection Neurological exam: Present: alert, oriented X3, CN II-XII intact Psychiatric exam: Present: normal affect, normal mood Skin exam: Present: warm, dry, intact, normal color. Absent: rash Course Vital Signs 02/02/22 02/02/22 07:29 15:28 Temperature 98.6 F Pulse Rate 90 86 Respiratory 16 16 Rate Blood Pressure 163/79 158/84 O2 Sat by Pulse 98 97 Oximetry Medical Decision Making - Medical Decision Making Arrival patient is placed in room 11. A thorough history and physical exam was performed. IV is established and the patient is given a 2 L bolus normal saline. Patient is bladder scan at this time which demonstrates no urine in her bladder. Laboratory studies are conducted. White count 10.3. Sodium 128. Potassium 5.2 however is a hemolyzed specimen. Glucose is 232. Urinalysis positive for nitrites, large leukocyte esterase, moderate white blood cell clumps, occasional bacteria. Bladder ultrasound is performed which is concerning for fistula. KUB is performed which demonstrates nonobstructive gas pattern. CT of the abdomen and pelvis demonstrates abnormal bladder with mild distention having air-fluid levels and mild to moderate concentric wall thickening. Mild ill-defined fluid or fat stranding surrounding the bladder wall. Blood cultures obtained and the patient given a dose of antibiotics. Recommended admission for failed outpatient treatment of urinary tract infection with urology to consult for abnormal CT findings. Patient agreed to this. Called and spoke with nurse practitioner who agreed to admit the patient. Patient currently pending about on the floor - Lab Data Result diagrams: 02/02/22 09:28 02/02/22 09:28 Lab Results 02/02/22 02/02/22 02/02/22 Range/Units 09:28 09:28 09:28 WBC 10.3 (3.8-10.6) k/uL RBC 3.83 (3.80-5.40) m/uL Hgb 12.1 (11.4-16.0) gm/dL Hct 35.3 (34.0-46.0) % MCV 92.2 (80.0-100.0) fL MCH 31.6 (25.0-35.0) pg MCHC 34.3 (31.0-37.0) g/dL RDW 12.6 (11.5-15.5) % Plt Count 289 (150-450) k/uL MPV 7.2 Neutrophils % 81 % Lymphocytes % 13 % Monocytes % 3 % Eosinophils % 3 % Basophils % 0 % Neutrophils # 8.3 H (1.3-7.7) k/uL Lymphocytes # 1.3 (1.0-4.8) k/uL Monocytes # 0.3 (0-1.0) k/uL Eosinophils # 0.3 (0-0.7) k/uL Basophils # 0.0 (0-0.2) k/uL Sodium 128 L (137-145) mmol/L Potassium 5.2 H (3.5-5.1) mmol/L Chloride 101 (98-107) mmol/L Carbon Dioxide 24 (22-30) mmol/L Anion Gap 3 mmol/L BUN 18 H (7-17) mg/dL Creatinine 0.95 (0.52-1.04) mg/dL Est GFR (CKD-EPI)AfAm 77 (>60 ml/min/1.73 sqM) Est GFR (CKD-EPI)NonAf 67 (>60 ml/min/1.73 sqM) Glucose 232 H (74-99) mg/dL Plasma Lactic Acid Ketan 1.0 (0.7-2.0) mmol/L Calcium 8.6 (8.4-10.2) mg/dL Total Bilirubin 1.3 (0.2-1.3) mg/dL AST 34 (14-36) U/L ALT 17 (4-34) U/L Alkaline Phosphatase 58 (38-126) U/L Total Protein 6.5 (6.3-8.2) g/dL Albumin 3.4 L (3.5-5.0) g/dL Lipase 31 (23-300) U/L Urine Color Urine Appearance (Clear) Urine pH (5.0-8.0) Ur Specific Goodman (1.001-1.035) Urine Protein (Negative) Urine Glucose (UA) (Negative) Urine Ketones (Negative) Urine Blood (Negative) Urine Nitrite (Negative) Urine Bilirubin (Negative) Urine Urobilinogen (<2.0) mg/dL Ur Leukocyte Esterase (Negative) Urine RBC (0-5) /hpf Urine WBC (0-5) /hpf Urine WBC Clumps (None) /hpf Ur Squamous Epith Cells (0-4) /hpf Amorphous Sediment (None) /hpf Urine Bacteria (None) /hpf Urine Mucus (None) /hpf 02/02/22 Range/Units 10:30 WBC (3.8-10.6) k/uL RBC (3.80-5.40) m/uL Hgb (11.4-16.0) gm/dL Hct (34.0-46.0) % MCV (80.0-100.0) fL MCH (25.0-35.0) pg MCHC (31.0-37.0) g/dL RDW (11.5-15.5) % Plt Count (150-450) k/uL MPV Neutrophils % % Lymphocytes % % Monocytes % % Eosinophils % % Basophils % % Neutrophils # (1.3-7.7) k/uL Lymphocytes # (1.0-4.8) k/uL Monocytes # (0-1.0) k/uL Eosinophils # (0-0.7) k/uL Basophils # (0-0.2) k/uL Sodium (137-145) mmol/L Potassium (3.5-5.1) mmol/L Chloride (98-107) mmol/L Carbon Dioxide (22-30) mmol/L Anion Gap mmol/L BUN (7-17) mg/dL Creatinine (0.52-1.04) mg/dL Est GFR (CKD-EPI)AfAm (>60 ml/min/1.73 sqM) Est GFR (CKD-EPI)NonAf (>60 ml/min/1.73 sqM) Glucose (74-99) mg/dL Plasma Lactic Acid Ketan (0.7-2.0) mmol/L Calcium (8.4-10.2) mg/dL Total Bilirubin (0.2-1.3) mg/dL AST (14-36) U/L ALT (4-34) U/L Alkaline Phosphatase (38-126) U/L Total Protein (6.3-8.2) g/dL Albumin (3.5-5.0) g/dL Lipase (23-300) U/L Urine Color Light Yellow Urine Appearance Cloudy H (Clear) Urine pH 6.5 (5.0-8.0) Ur Specific Goodman 1.008 (1.001-1.035) Urine Protein 2+ H (Negative) Urine Glucose (UA) 2+ H (Negative) Urine Ketones Negative (Negative) Urine Blood Large H (Negative) Urine Nitrite Positive H (Negative) Urine Bilirubin Negative (Negative) Urine Urobilinogen <2.0 (<2.0) mg/dL Ur Leukocyte Esterase Large H (Negative) Urine RBC 44 H (0-5) /hpf Urine WBC >182 H (0-5) /hpf Urine WBC Clumps Moderate H (None) /hpf Ur Squamous Epith Cells 1 (0-4) /hpf Amorphous Sediment Rare H (None) /hpf Urine Bacteria Occasional H (None) /hpf Urine Mucus Rare H (None) /hpf Disposition Clinical Impression: UTI (urinary tract infection), Hyponatremia Disposition: ADMITTED IP TO THIS [facility] Condition: Stable Is patient prescribed a controlled substance at d/c from ED?: No Decision to Admit Reason: Admit from EC Decision Date: 02/02/22 Decision Time: 11:25
--- NOTE | 2022-02-02 09:28 | US ---
EXAMINATION TYPE: US kidneys/renal and bladder DATE OF EXAM: 02/02/2022 COMPARISON: Lumbar spine MRI March 19, 2018 CLINICAL HISTORY: suprapubic pain, recent uti treatment. EXAM MEASUREMENTS: Right Kidney: 11.2 x 4.4 x 5.1 cm Left Kidney: 11.0 x 3.9 x 4.5 cm Right Kidney: No hydronephrosis or masses seen Left Kidney: No hydronephrosis or masses seen, inferior and superior portions somewhat obscured by ov erlying bowel gas Bladder: not seen, obscured by bowel There is no evidence for hydronephrosis at this point in time. No nephrolithiasis is seen. No segundo s are identified. The urinary bladder is not clearly identified on images saved presumed poorly dist ended. IMPRESSION: No hydronephrosis seen bilaterally. Suboptimal evaluation of bladder.
[2022-02-02 09:48] LABS: Basophils % (A) 0 %; Eosinophils # (A) 0.3 k/uL (0-0.7); Eosinophils % (A) 3 %; HCT 35.3 % (34.0-46.0); HGB 12.1 gm/dL (11.4-16.0); Lymphocytes # (A) 1.3 k/uL (1.0-4.8); Lymphocytes % (A) 13 %; MCH 31.6 pg (25.0-35.0); MCHC 34.3 g/dL (31.0-37.0); MCV 92.2 fL (80.0-100.0); Mean Platelet Volume 7.2; Monocytes # (A) 0.3 k/uL (0-1.0); Monocytes % (A) 3 %; Neutrophils # (A) 8.3 k/uL (1.3-7.7); Neutrophils % (A) 81 %; Platelet Count 289 k/uL (150-450); RBC 3.83 m/uL (3.80-5.40); RDW 12.6 % (11.5-15.5); WBC 10.3 k/uL (3.8-10.6)
[2022-02-02 09:51] LABS: Albumin 3.4 g/dL (3.5-5.0); Calcium 8.6 mg/dL (8.4-10.2); Total Bilirubin 1.3 mg/dL (0.2-1.3); Total Protein 6.5 g/dL (6.3-8.2)
[2022-02-02 09:56] LABS: Potassium 5.2 mmol/L (3.5-5.1)
--- NOTE | 2022-02-02 10:10 | XR ---
EXAMINATION TYPE: XR KUB DATE OF EXAM: 02/02/2022 9:37 AM CLINICAL HISTORY: Lower abdominal pain with urinary tract infection TECHNIQUE: Two Upright KUB images of the abdomen are obtained. COMPARISON: Ultrasound earlier today. FINDINGS: Scattered gas is seen in non-distended small bowel loops. Gas and fecal material is seen in non-distended colon. Levoconvex scoliosis centered at L3 level. Air-fluid level in the pelvis likely reflects bladder. No free air. Lung bases are clear. IMPRESSION: Overall nonobstructive bowel gas pattern. Air-fluid level or significant air in bladder raises concer n for fistula.
[2022-02-02 10:53] LABS: Amorphous Sediment,Urine Rare /hpf; Appearance,Urine Cloudy (Clear); Bacteria,Urine Occasional /hpf; Bilirubin,Urine Negative (Negative); Blood,Urine Large (Negative); Color,Urine Light Yellow; Glucose,Urine (UA) 2+ (Negative); Ketones,Urine Negative (Negative); Leukocyte Esterase,Urine Large (Negative); Mucus,Urine Rare /hpf; Nitrite,Urine Positive (Negative); PH, Urine 6.5 (5.0-8.0); Protein,Urine 2+ (Negative); RBC,Urine 44 /hpf (0-5); Specific Gravity,Urine 1.008 (1.001-1.035); Squamous Epithelial Cell,Urine 1 /hpf (0-4); Urobilinogen,Urine <2.0 mg/dL (<2.0); WBC,Urine >182 /hpf (0-5)
--- NOTE | 2022-02-02 11:03 | CT ---
EXAMINATION TYPE: CT abdomen pelvis w con DATE OF EXAM: 02/02/2022 HISTORY: Constipation, anuria. CT DLP: 646.4mGycm Automated Exposure Control for Dose Reduction was Utilized. CONTRAST: CT scan of the abdomen and pelvis is performed without oral but with IV Contrast, patient injected wi th 100 mL of Isovue 300. COMPARISON: X-ray and renal ultrasound earlier today. FINDINGS: LUNG BASES: No significant abnormality is appreciated. LIVER/GB: No significant abnormality is appreciated. PANCREAS: No significant abnormality is seen. SPLEEN: No significant abnormality is seen. ADRENALS: No significant abnormality is seen. KIDNEYS: Symmetric cortical medullary uptake and excretion without hydronephrosis seen bilaterally. C orresponding to studies earlier today there is abnormal bladder with mild distention having air-fluid level and having mild to moderate concentric wall thickening. Mild ill-defined fluid or fat strandin g surrounding bladder wall is noted. No air within bladder wall. There is no definitive fistulous tra ck identified. BOWEL: Mild wall thickening in the left and sigmoid colon could be product of poor distention. No marina picious small or large bowel dilatation. Slight low-lying cecum into right pelvis. UTERUS/ADNEXA: Uterus is surgically absent or markedly atrophic. Small amount of free fluid right pel vis axial image 59 posterior to bladder LYMPH NODES: No greater than 1cm abdominal or pelvic lymph nodes are appreciated. OSSEOUS STRUCTURES: Severe disc space narrowing lumbosacral junction moderate disc space narrowing wi th vacuum disc phenomenon L4-L5 level. Moderate to severe disc space narrowing T12-L1 level with vacu um disc phenomenon. OTHER: No significant additional abnormality is seen. IMPRESSION: Confirmation of abnormal bladder as detailed above. Consider gas producing infection or c ystitis. Follow-up after treatment is advised to exclude fistula.
[2022-02-02] MEDS ORDERED: cefTRIAXone IN SWFI 1,000 MG/10 ML SYRINGE IVP STA (11:24)
[2022-02-02] MEDS ORDERED: NALOXONE 0.4 MG/ML 1 ML VIAL IV PRN (11:34)
[2022-02-02] MEDS ORDERED: SODIUM CHLORIDE 0.9% 1,000 ML IV SCH (11:45)
[2022-02-02 13:58] LABS: Glucose,Whole Blood 261 mg/dL (75-99)
[2022-02-02] MEDS: INSULIN ASPART (NovoLOG) 100 UNIT/ML VIAL SQ SCH ×4 (14:03→23:23)
[2022-02-02] MEDS: SODIUM CHLORIDE 0.9% 1,000 ML IV SCH ×2 (14:21→23:23)
[2022-02-02] MEDS: DOCUSATE 100 MG CAP PO SCH (14:21)
[2022-02-02 16:39] LABS: Glucose,Whole Blood 205 mg/dL (75-99)
[2022-02-02] MEDS: AMPICILLIN-SULBACTAM 3 GM in SODIUM CHLORIDE 0.9% 100 ML IVPB SCH ×2 (17:09→23:24)
--- NOTE | 2022-02-02 18:27 | P.GSCN ---
History of Present Illness Consult date: 02/02/22 Reason for Consult: Colovesical fistula History of present illness: This is a 56-year-old female admitted to the hospital for failed outpatient UTI treatments and colovesicle fistula. She indicated that she's been having dysuria and urinary symptoms for the past month, has not resolved despite antibiotics. has also been complaining old blood tinged urine. Denies any fevers or chills. She indicated that she's been noticing pneumaturia, but denies any evidence of fecalurea. Indicated that she was diagnosed with a possible fistula approximately 15 years ago and underwent an expiratory laparotomy by Dr Huynh that was negative. Denies any known history of radiation, she previously follows up with Dr. Valdes, and underwent a urethral sling procedure in the past. Indicated she had a cystoscopy more than 10 years ago, and at that time a fistula was seen. CT abdomen and pelvis showed evidence of significant amount of air in the bladder Review of Systems - Constitutional Denies fever, Denies weight loss - Cardiovascular Denies chest pain, Denies shortness of breath - Respiratory Denies cough, Denies 7 - Gastrointestinal Reports abdominal pain, Reports constipation, Reports nausea, Denies vomiting - Genitourinary Genitourinary: Reports dysuria, Reports hematuria, Denies flank pain - Neurological Denies headaches, Denies syncope Past Medical History Past Medical History: COPD, Diabetes Mellitus, Fibromyalgia, GERD/Reflux, Hypertension, Osteoarthritis (OA), Thyroid Disorder Additional Past Medical History / Comment(s): NEUROPATHY BILATERAL FEET, -DDD NECK AND LOWER BACK, hiatal hernia, hepatitis as a kid, fell & fx. left wrist History of Any Multi-Drug Resistant Organisms: MRSA Year Discovered:: 05/2016 MDRO Source:: rt great toe Past Surgical History: Adenoidectomy, Back Surgery, Bladder Surgery, Hysterectomy, Orthopedic Surgery, Tonsillectomy, Tubal Ligation Additional Past Surgical History / Comment(s): Debridement R foot, PICC line/later removed, bladder suspension, exploratory laparotomy, rt great toe amputation, pins right feet, cataracts removed Past Anesthesia/Blood Transfusion Reactions: No Reported Reaction Additional Past Anesthesia/Blood Transfusion Reaction / Comm: . Past Psychological History: Anxiety Smoking Status: Current every day smoker Past Alcohol Use History: None Reported, Rare Additional Past Alcohol Use History / Comment(s): SMOKER SINCE 1983-1/2 PPD Past Drug Use History: None Reported - Past Family History Mother Family Medical History: No Reported History Additional Family Medical History / Comment(s): Mother has back problems. She is 73 yrs old. Father Additional Family Medical History / Comment(s): at 26yrs old--accident at work Medications and Allergies Home Medications Medication Instructions Recorded Confirmed Type Acetaminophen Tab [Tylenol] 2,000 mg PO BID PRN 08/20/21 02/02/22 History Fluticasone/Umeclidin/Vilanter 1 puff INHALATION RT-DAILY 08/20/21 02/02/22 History [Trelegy Ellipta 100-62.5-25] Insulin Aspart [NovoLOG] See Protocol SQ TID-W/MEALS PRN 08/20/21 02/02/22 History Multivitamins, Thera [Multivitamin 1 tab PO DAILY 08/20/21 02/02/22 History (formulary)] Rosuvastatin [Crestor] 20 mg PO DAILY 08/20/21 02/02/22 History Clotrimazole Cream [Lotrimin Cream] 1 applic TOPICAL DAILY 02/02/22 02/02/22 History Fluticasone Nasal [place] [Flonase 1 spray EA NOSTRIL DAILY 02/02/22 02/02/22 History Nasal [place]] Insulin Glargine,Hum.rec.anlog 25 unit SQ DAILY 02/02/22 02/02/22 History [Lantus Solostar Pen] Levothyroxine Sodium [Synthroid] 175 mcg PO DAILY 02/02/22 02/02/22 History buPROPion XL [Wellbutrin XL] 150 mg PO DAILY 02/02/22 02/02/22 History traZODone HCL 50 mg PO HS 02/02/22 02/02/22 History Allergies Allergy/AdvReac Type Severity Reaction Status Date / Time Sulfa (Sulfonamide Allergy Rash/Hives Verified 02/02/22 08:18 Antibiotics) Surgical - Exam Vital Signs Temp Pulse Resp BP Pulse Ox 98.6 F 90 16 163/79 98 02/02/22 07:29 02/02/22 07:29 02/02/22 07:29 02/02/22 07:29 02/02/22 07:29 - General no distress, no pain - Eyes normal ocular movement, no pale - ENT normal nares, normal mucosa - Respiratory normal expansion, normal respiratory effort - Abdomen Abdomen: soft, non tender, no distended - Psychiatric oriented to time, oriented to person, oriented to place Results - Labs 02/02/22 09:28 02/02/22 09:28 Abnormal Lab Results - Last 24 Hours (Table) 02/02/22 02/02/22 02/02/22 Range/Units 09:28 09:28 10:30 Neutrophils # 8.3 H (1.3-7.7) k/uL Sodium 128 L (137-145) mmol/L Potassium 5.2 H (3.5-5.1) mmol/L BUN 18 H (7-17) mg/dL Glucose 232 H (74-99) mg/dL POC Glucose (mg/dL) (75-99) mg/dL Albumin 3.4 L (3.5-5.0) g/dL Urine Appearance Cloudy H (Clear) Urine Protein 2+ H (Negative) Urine Glucose (UA) 2+ H (Negative) Urine Blood Large H (Negative) Urine Nitrite Positive H (Negative) Ur Leukocyte Esterase Large H (Negative) Urine RBC 44 H (0-5) /hpf Urine WBC >182 H (0-5) /hpf Urine WBC Clumps Moderate H (None) /hpf Amorphous Sediment Rare H (None) /hpf Urine Bacteria Occasional H (None) /hpf Urine Mucus Rare H (None) /hpf 02/02/22 02/02/22 Range/Units 13:56 16:38 Neutrophils # (1.3-7.7) k/uL Sodium (137-145) mmol/L Potassium (3.5-5.1) mmol/L BUN (7-17) mg/dL Glucose (74-99) mg/dL POC Glucose (mg/dL) 261 H 205 H (75-99) mg/dL Albumin (3.5-5.0) g/dL Urine Appearance (Clear) Urine Protein (Negative) Urine Glucose (UA) (Negative) Urine Blood (Negative) Urine Nitrite (Negative) Ur Leukocyte Esterase (Negative) Urine RBC (0-5) /hpf Urine WBC (0-5) /hpf Urine WBC Clumps (None) /hpf Amorphous Sediment (None) /hpf Urine Bacteria (None) /hpf Urine Mucus (None) /hpf Diabetes panel 02/02/22 Range/Units 09:28 Sodium 128 L (137-145) mmol/L Potassium 5.2 H (3.5-5.1) mmol/L Chloride 101 (98-107) mmol/L Carbon Dioxide 24 (22-30) mmol/L BUN 18 H (7-17) mg/dL Creatinine 0.95 (0.52-1.04) mg/dL Glucose 232 H (74-99) mg/dL Calcium 8.6 (8.4-10.2) mg/dL AST 34 (14-36) U/L ALT 17 (4-34) U/L Alkaline Phosphatase 58 (38-126) U/L Total Protein 6.5 (6.3-8.2) g/dL Albumin 3.4 L (3.5-5.0) g/dL Calcium panel 02/02/22 Range/Units 09:28 Calcium 8.6 (8.4-10.2) mg/dL Albumin 3.4 L (3.5-5.0) g/dL Pituitary panel 02/02/22 Range/Units 09:28 Sodium 128 L (137-145) mmol/L Potassium 5.2 H (3.5-5.1) mmol/L Chloride 101 (98-107) mmol/L Carbon Dioxide 24 (22-30) mmol/L BUN 18 H (7-17) mg/dL Creatinine 0.95 (0.52-1.04) mg/dL Glucose 232 H (74-99) mg/dL Calcium 8.6 (8.4-10.2) mg/dL Adrenal panel 02/02/22 Range/Units 09:28 Sodium 128 L (137-145) mmol/L Potassium 5.2 H (3.5-5.1) mmol/L Chloride 101 (98-107) mmol/L Carbon Dioxide 24 (22-30) mmol/L BUN 18 H (7-17) mg/dL Creatinine 0.95 (0.52-1.04) mg/dL Glucose 232 H (74-99) mg/dL Calcium 8.6 (8.4-10.2) mg/dL Total Bilirubin 1.3 (0.2-1.3) mg/dL AST 34 (14-36) U/L ALT 17 (4-34) U/L Alkaline Phosphatase 58 (38-126) U/L Total Protein 6.5 (6.3-8.2) g/dL Albumin 3.4 L (3.5-5.0) g/dL - Imaging CT scan - abdomen: image reviewed (Significant amount of air within the bladder, bladder wall thickening, no hydronephrosis) Assessment and Plan Assessment: This is a 56-year-old female admitted to the hospital for failed outpatient UTI and colovesical fistula. 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 At this time discussed with her we will continue to treat her UTI, but discussed she will eventually require definitive treatment for her colovesical fistula. Discussed with her that she will eventually require cystoscopy to complete her bladder evaluation once her UTI resolves, this will be set up for her as an outpatient with Dr. Robbins -Follow up on urine cultures -We'll consult general surgery -We'll obtain a CT abdomen and pelvis with PO contrast
[2022-02-02 21:47] LABS: Glucose,Whole Blood 179 mg/dL (75-99)
[2022-02-02] MEDS: traZODone HCL 50 MG TAB PO SCH (23:22)
--- NOTE | 2022-02-03 01:02 | P.CONS ---
History of Present Illness - Reason for Consult Consult date: 02/02/22 Urinary tract infection Requesting physician: Liane Diane - Chief Complaint Suprapubic discomfort and burning urine x few days - History of Present Illness Patient is a 56-year female who apparently was recently treated for urinary tract infection by her primary care physician with oral Macrobid, patient mention he did have some improvement initially however started having increasing pressure to the lower abdominal/pelvic area now with difficulty urination and some burning with the symptom the patient presented to hospital on arrival to the ER the patient was afebrile and no fever have been recorded subsequently patient did have a normal white count but the left shift creatinine was normal limits of the normal patient did have a positive UA patient did have a abdominal bladder ultrasound no hydronephrosis bilaterally suboptimal evaluation of the bladder subsequently did have a CT of abdominal pelvis mild wall thickening in the left and mid sigmoid colon no suspicious dilatation mild ill-defined stranding surrounding the bladder concerning for cystitis versus gas producing infection patient received a dose of Rocephin in the ER subsequently has been admitted to the hospital infectious disease was consulted for further management of antibiotic therapy Review of Systems Positive point has been mentioned in the HPI rest of the systems are negative Past Medical History Past Medical History: COPD, Diabetes Mellitus, Fibromyalgia, GERD/Reflux, Hypertension, Osteoarthritis (OA), Thyroid Disorder Additional Past Medical History / Comment(s): NEUROPATHY BILATERAL FEET, -DDD NECK AND LOWER BACK, hiatal hernia, no need for BP med anymore, hepatitis as a kid, fell & fx. left wrist 11-05-18-wearing splint History of Any Multi-Drug Resistant Organisms: MRSA Year Discovered:: 05/2016 MDRO Source:: rt great toe Past Surgical History: Adenoidectomy, Back Surgery, Bladder Surgery, Hysterectomy, Orthopedic Surgery, Tonsillectomy, Tubal Ligation Additional Past Surgical History / Comment(s): Debridement R foot, PICC line/later removed, bladder suspension, exploratory laparotomy, rt great toe amputation, pins right feet, cataracts removed Past Anesthesia/Blood Transfusion Reactions: No Reported Reaction Additional Past Anesthesia/Blood Transfusion Reaction / Comm: . Past Psychological History: Anxiety Smoking Status: Current every day smoker Past Alcohol Use History: None Reported, Rare Past Drug Use History: None Reported - Past Family History Mother Family Medical History: No Reported History Additional Family Medical History / Comment(s): Mother has back problems. She is 73 yrs old. Father Additional Family Medical History / Comment(s): at 26yrs old--accident at work Medications and Allergies Home Medications Medication Instructions Recorded Confirmed Type Acetaminophen Tab [Tylenol] 2,000 mg PO BID PRN 08/20/21 02/02/22 History Fluticasone/Umeclidin/Vilanter 1 puff INHALATION RT-DAILY 08/20/21 02/02/22 History [Trelegy Ellipta 100-62.5-25] Insulin Aspart [NovoLOG] See Protocol SQ TID-W/MEALS PRN 08/20/21 02/02/22 History Multivitamins, Thera [Multivitamin 1 tab PO DAILY 08/20/21 02/02/22 History (formulary)] Rosuvastatin [Crestor] 20 mg PO DAILY 08/20/21 02/02/22 History Clotrimazole Cream [Lotrimin Cream] 1 applic TOPICAL DAILY 02/02/22 02/02/22 History Fluticasone Nasal [place] [Flonase 1 spray EA NOSTRIL DAILY 02/02/22 02/02/22 History Nasal [place]] Insulin Glargine,Hum.rec.anlog 25 unit SQ DAILY 02/02/22 02/02/22 History [Lantus Solostar Pen] Levothyroxine Sodium [Synthroid] 175 mcg PO DAILY 02/02/22 02/02/22 History buPROPion XL [Wellbutrin XL] 150 mg PO DAILY 02/02/22 02/02/22 History traZODone HCL 50 mg PO HS 02/02/22 02/02/22 History Allergies Allergy/AdvReac Type Severity Reaction Status Date / Time Sulfa (Sulfonamide Allergy Rash/Hives Verified 02/02/22 08:18 Antibiotics) Physical Exam Vitals: Vital Signs Temp Pulse Resp BP Pulse Ox 02/02/22 07:29 98.6 F 90 16 163/79 98 Intake and Output 02/01/22 02/02/22 02/02/22 22:59 06:59 14:59 Other: Weight 62.596 kg GENERAL DESCRIPTION: Middle-aged female lying in bed, no distress. No tachypnea or accessory muscle of respiration use. HEENT: Shows Pallor , no scleral icterus. Oral mucous membrane is dry. No pharyngeal erythema or thrush NECK: Trachea central, no thyromegaly. LUNGS: Unlabored breathing. Clear to auscultation anteriorly. No wheeze or crackle. HEART: S1, S2, regular rate and rhythm. No loud murmur ABDOMEN: Soft, no tenderness , guarding or rigidity, no organomegaly EXTREMITIES: No edema of feet. SKIN: No rash, no masses palpable. NEUROLOGICAL: The patient is awake, alert, oriented x3, mood and affect normal. Results CBC & Chem 7: 02/02/22 09:28 02/02/22 09:28 Labs: Abnormal Lab Results - Last 24 Hours (Table) 02/02/22 02/02/22 02/02/22 Range/Units 09:28 09:28 10:30 Neutrophils # 8.3 H (1.3-7.7) k/uL Sodium 128 L (137-145) mmol/L Potassium 5.2 H (3.5-5.1) mmol/L BUN 18 H (7-17) mg/dL Glucose 232 H (74-99) mg/dL POC Glucose (mg/dL) (75-99) mg/dL Albumin 3.4 L (3.5-5.0) g/dL Urine Appearance Cloudy H (Clear) Urine Protein 2+ H (Negative) Urine Glucose (UA) 2+ H (Negative) Urine Blood Large H (Negative) Urine Nitrite Positive H (Negative) Ur Leukocyte Esterase Large H (Negative) Urine RBC 44 H (0-5) /hpf Urine WBC >182 H (0-5) /hpf Urine WBC Clumps Moderate H (None) /hpf Amorphous Sediment Rare H (None) /hpf Urine Bacteria Occasional H (None) /hpf Urine Mucus Rare H (None) /hpf 02/02/22 Range/Units 13:56 Neutrophils # (1.3-7.7) k/uL Sodium (137-145) mmol/L Potassium (3.5-5.1) mmol/L BUN (7-17) mg/dL Glucose (74-99) mg/dL POC Glucose (mg/dL) 261 H (75-99) mg/dL Albumin (3.5-5.0) g/dL Urine Appearance (Clear) Urine Protein (Negative) Urine Glucose (UA) (Negative) Urine Blood (Negative) Urine Nitrite (Negative) Ur Leukocyte Esterase (Negative) Urine RBC (0-5) /hpf Urine WBC (0-5) /hpf Urine WBC Clumps (None) /hpf Amorphous Sediment (None) /hpf Urine Bacteria (None) /hpf Urine Mucus (None) /hpf Assessment and Plan (1) UTI (urinary tract infection) Current Visit: Yes Status: Acute Code(s): N39.0 - URINARY TRACT INFECTION, SITE NOT SPECIFIED SNOMED Code(s): 39154641 Plan: 1patient with a history of recurrent urinary tract infection presented to hospital with deep pelvic pressure some morning and this patient did have abnormal CT with evidence of cystitis and concern for possible gas producing bacteria versus emphysematous cystitis. Likely from enteric gram-negative with recent urine culture positive for E. coli in the outpatient setting which was sensitive. 2we will start the patient on Unasyn 3 g every 6 hours. 3gentle IV fluid. We will follow on clinical condition and cultures to further adjust medication if needed Thank you for this consultation will follow this patient along with you Time with Patient: Greater than 30
[2022-02-03] MEDS: AMPICILLIN-SULBACTAM 3 GM in SODIUM CHLORIDE 0.9% 100 ML IVPB SCH ×4 (06:22→23:52)
[2022-02-03] MEDS: LEVOTHYROXINE 88 MCG TAB PO SCH (06:22)
[2022-02-03] MEDS ORDERED: IOPAMIDOL CONTRAST (ORAL USE) VIAL PO PRN (06:48)
[2022-02-03 07:00] LABS: Glucose,Whole Blood 81 mg/dL (75-99)
[2022-02-03] MEDS: IPRATROPIUM 0.5 MG/2.5 ML NEBU INHALATION SCH ×4 (08:44→19:12)
[2022-02-03] MEDS: SYMBICORT 80-4.5 MCG INHALER INHALATION SCH ×2 (08:44→19:12)
[2022-02-03] MEDS: INSULIN ASPART (NovoLOG) 100 UNIT/ML VIAL SQ SCH ×4 (09:01→21:23)
[2022-02-03 10:07] LABS: Basophils # (A) 0.04 X 10*3/uL (0.00-0.10); Basophils % (A) 0.6 %; Eosinophils % (A) 7.8 %; HCT 31.2 % (37.2-46.3); HGB 10.2 g/dL (12.0-15.0); Immature Grans, Automated 0.3 %; Lymphocytes # (A) 2.03 X 10*3/uL (0.90-5.00); Lymphocytes % (A) 31.5 %; MCH 30.3 pg (27.0-32.0); MCHC 32.7 g/dL (32.0-37.0); MCV 92.6 fL (80.0-97.0); Monocytes # (A) 0.48 X 10*3/uL (0.20-1.00); Monocytes % (A) 7.5 %; NRBC Per 100 WBC 0 /100 WBCS (0.0-0.0); Neutrophils # (A) 3.37 X 10*3/uL (1.80-7.70); Neutrophils % (A) 52.3 %; Platelet Count 290 X 10*3/uL (140-440); RBC 3.37 X 10*6/uL (4.10-5.20); WBC 6.44 X 10*3/uL (4.50-10.00)
[2022-02-03 10:35] LABS: African American GFR (CKD) 82.3 (60.0-200.0); Anion Gap 7.2 mmol/L (10.00-18.00); BUN/Creat Ratio 16.78 Ratio (12.00-20.00); Blood Urea Nitrogen 15.1 mg/dL (9.0-27.0); Calcium 8.3 mg/dL (8.7-10.3); Carbon Dioxide 23.8 mmol/L (20.0-27.5); Potassium 3.6 mmol/L (3.5-5.5)
[2022-02-03] MEDS: MULTIVITAMINS, THERA 1 EACH TAB PO SCH (10:37)
[2022-02-03] MEDS: ATORVASTATIN 40 MG TAB PO SCH (10:37)
[2022-02-03] MEDS: buPROPion XL 150 MG TAB.ER.24H PO SCH (10:37)
[2022-02-03] MEDS: DOCUSATE 100 MG CAP PO SCH (10:37)
[2022-02-03] MEDS: FLUTICASONE 50MCG/SPRAY NASAL 16GM EA NOSTRIL SCH (10:37)
[2022-02-03] MEDS: INSULIN DETEMIR (LEVEMIR) 100 UNIT/ML SYR SQ SCH (10:42)
[2022-02-03] MEDS: traMADol 50 MG TAB PO PRN ×2 (10:47→22:55)
--- NOTE | 2022-02-03 10:47 | CT ---
EXAMINATION TYPE: CT abdomen pelvis wo con DATE OF EXAM: 02/03/2022 HISTORY: Colovesical fistula. CT DLP: 495.8 mGycm. Automated Exposure Control for Dose Reduction was Utilized. TECHNIQUE: CT scan of the abdomen and pelvis is performed with oral but without IV contrast. COMPARISON: CT abdomen and pelvis from one day earlier FINDINGS: Within the limitations of a non-contrast study, the following observations are made. LUNG BASES: No significant abnormality is appreciated. LIVER/GB: No significant abnormality is appreciated. PANCREAS: No significant abnormality is seen. SPLEEN: No significant abnormality is seen. ADRENALS: No significant abnormality is seen. KIDNEYS: No renal stones or hydronephrosis seen bilaterally. Air-fluid level in bladder again seen. BOWEL: Oral contrast does not reach colonic level making evaluation of distal bowel suboptimal. No kay spicious small or large bowel dilatation. Moderate fecal prominence in the left and transverse colon. Mild wall thickening sigmoid rectal colon. UTERUS/ADNEXA: Uterus is surgically absent or markedly atrophic. Prior visualized small amount pelvic fluid not clearly seen. LYMPH NODES: No greater than 1cm abdominal or pelvic lymph nodes are appreciated. OSSEOUS STRUCTURES: Severe disc space narrowing lumbosacral junction. Moderate disc space narrowing w ith vacuum disc phenomenon L4-L5 level. Moderate to severe disc space narrowing T12-L1 level with vac uum disc phenomenon. OTHER: No significant additional abnormality is seen. IMPRESSION: No significant change from one day earlier. Oral contrast does not reach sigmoid colon le aurelia to assess for fistula.
[2022-02-03 11:34] LABS: Glucose,Whole Blood 108 mg/dL (75-99)
--- NOTE | 2022-02-03 11:52 | P.GSCN ---
History of Present Illness Consult date: 02/03/22 History of present illness: CHIEF COMPLAINT: Dysuria and lower abdominal pain HISTORY OF PRESENT ILLNESS: This is a 56-year-old female with frequent UTIs and prior history of a colovesical fistula. Patient complains of urinary frequency, hesitancy, urgency and pneumaturia for about 10 days. She reports that her urine has been slightly blood-tinged. And she complains of abdominal pain across the lower abdomen. Denies any prior history of diverticulitis. She rep orts that she has been passing particles in her urine. She had recent treatment of a UTI with Cipro and then Macrobid. She reports finishing about a 5 day treatment of Macrobid had felt slightly better. She finished taking the antibiotic on Monday and then by Monday her symptoms had returned. She does still chilled. Denies any fever. She had a computed tomography scan that reported an abnormal bladder. Consider gas producing infection or cystitis. And recommended follow-up after treatment to exclude fistula. Patient is currently on antibiotics. She is evaluated by urology. They ordered a computed tomography scan of the abdomen with oral contrast for further evaluation of questionable colovesical fistula. However, oral contrast did not reach sigmoid colon level to assess for fistula. Patient reports that she had exploratory laparotomy with Dr. Tadeo in 2004 for evaluation of a colovesical fistula and at that time there is no evidence of a colovesical fistula. PAST MEDICAL HISTORY: COPD, diabetes mellitus, fibromyalgia, hypertension PAST SURGICAL HISTORY: Hysterectomy, bladder suspension, which were laparotomy, tubal ligation MEDICATIONS: See list. ALLERGIES: See list. SOCIAL HISTORY: No illicit drug use. Nicotine dependence REVIEW OF SYSTEMS: CONSTITUTIONAL: Denies fever or chills. HEENT: Denies blurred vision, vision changes, or eye pain. Denies hemoptysis CARDIOVASCULAR: Denies chest pain or pressure. RESPIRATORY: No shortness of breath. GASTROINTESTINAL: See HPI for pertinent findings HEMATOLOGIC: Denies bleeding disorders. GENITOURINARY: Denies any blood in urine or increased urinary frequency. SKIN: Denies pruitis. Denies rash. PHYSICAL EXAM: VITAL SIGNS: Reviewed GENERAL: Well-developed in no acute distress. HEENT: No sclera icterus. Extraocular movements grossly intact. Moist buccal mucosa. Head is atraumatic, normocephalic. No nasal drainage. ABDOMEN: Soft. Nondistended. Tenderness with palpation of the lower abdomen NEUROLOGIC: Alert and oriented. Cranial nerves II through XII grossly intact. LABORATORY DATA: WBC 6.4 for hemoglobin 10.2 plt 290 Sodium 138 potassium 3.6 creatinine 0.9 Urinalysis evidence of infection IMAGING: Computed tomography scan of abdomen as stated above ASSESSMENT: 1. Recurrent UTIs with failed treatment of UTI. Concerns for possible colovesical fistula. Patient having pneumaturia 2. Pneumaturia with concerns for possible colovesical fistula PLAN: -Further recommendations forthcoming per surgeon -Continue supportive care -Continue antibiotics -Continue IV fluids Thank you for this consultation Physician Chef Under note has been reviewed by physician. Signing provider agrees with the documented findings, assessment, and plan of care. I have personally seen and examined the patient, reviewed the WINDOWS SERVER SUPPORT TECHNICIAN /PAs history, exam and MDM and agree with the assessment and plan as written. Based on total visit time, I have performed more than 50% of the visit. As above: Both CAT scans reviewed. The patient's colon does not seem to be in close proximity to the bladder. Patient had a previous exploratory that was negative for findings of colovesical fistula. Clinically doubt enterovesical fistula at this time however not excluded. Would recommend eventual CT pelvis with cystogram however given the recent oral contrast this can likely be performed in the outpatient setting. Agree with plans for cystoscopy as well. We'll follow. Past Medical History Past Medical History: COPD, Diabetes Mellitus, Fibromyalgia, GERD/Reflux, Hypertension, Osteoarthritis (OA), Thyroid Disorder Additional Past Medical History / Comment(s): NEUROPATHY BILATERAL FEET, -DDD NECK AND LOWER BACK, hiatal hernia, no need for BP med anymore, hepatitis as a kid, fell & fx. left wrist 11-05-18-wearing splint History of Any Multi-Drug Resistant Organisms: MRSA Year Discovered:: 05/2016 MDRO Source:: rt great toe Past Surgical History: Adenoidectomy, Back Surgery, Bladder Surgery, Hysterectomy, Orthopedic Surgery, Tonsillectomy, Tubal Ligation Additional Past Surgical History / Comment(s): Debridement R foot, PICC line/later removed, bladder suspension, exploratory laparotomy, rt great toe a mputation, pins right feet, cataracts removed Past Anesthesia/Blood Transfusion Reactions: No Reported Reaction Additional Past Anesthesia/Blood Transfusion Reaction / Comm: . Past Psychological History: Anxiety Smoking Status: Current every day smoker Past Alcohol Use History: None Reported, Rare Past Drug Use History: None Reported - Past Family History Mother Family Medical History: No Reported History Additional Family Medical History / Comment(s): Mother has back problems. She is 73 yrs old. Father Additional Family Medical History / Comment(s): at 26yrs old--accident at work Medications and Allergies Home Medications Medication Instructions Recorded Confirmed Type Acetaminophen Tab [Tylenol] 2,000 mg PO BID PRN 08/20/21 02/02/22 History Fluticasone/Umeclidin/Vilanter 1 puff INHALATION RT-DAILY 08/20/21 02/02/22 History [Trelegary Ellipta 100-62.5-25] Insulin Aspart [NovoLOG] See Protocol SQ TID-W/MEALS PRN 08/20/21 02/02/22 History Multivitamins, Thera [Multivitamin 1 tab PO DAILY 08/20/21 02/02/22 History (formulary)] Rosuvastatin [Crestor] 20 mg PO DAILY 08/20/21 02/02/22 History Clotrimazole Cream [Lotrimin Cream] 1 applic TOPICAL DAILY 02/02/22 02/02/22 History Fluticasone Nasal [place] [Flonase 1 spray EA NOSTRIL DAILY 02/02/22 02/02/22 History Nasal [place]] Insulin Glargine,Hum.rec.anlog 25 unit SQ DAILY 02/02/22 02/02/22 History [Lantus Solostar Pen] Levothyroxine Sodium [Synthroid] 175 mcg PO DAILY 02/02/22 02/02/22 History buPROPion XL [Wellbutrin XL] 150 mg PO DAILY 02/02/22 02/02/22 History traZODone HCL 50 mg PO HS 02/02/22 02/02/22 History Allergies Allergy/AdvReac Type Severity Reaction Status Date / Time Sulfa (Sulfonamide Allergy Rash/Hives Verified 02/02/22 08:18 Antibiotics) Surgical - Exam Vital Signs Temp Pulse Resp BP Pulse Ox 98.6 F 90 16 163/79 98 02/02/22 07:29 02/02/22 07:29 02/02/22 07:29 02/02/22 07:29 02/02/22 07:29 Results - Labs 02/03/22 05:39 02/03/22 05:39 Abnormal Lab Results - Last 24 Hours (Table) 02/02/22 02/02/22 02/02/22 Range/Units 13:56 16:38 21:46 RBC (4.10-5.20) X 10*6/uL Hgb (12.0-15.0) g/dL Hct (37.2-46.3) % Eosinophils # (0.04-0.35) X 10*3/uL Anion Gap (10.00-18.00) mmol/L POC Glucose (mg/dL) 261 H 205 H 179 H (75-99) mg/dL Calcium (8.7-10.3) mg/dL 02/03/22 02/03/22 02/03/22 Range/Units 05:39 05:39 11:31 RBC 3.37 L (4.10-5.20) X 10*6/uL Hgb 10.2 L (12.0-15.0) g/dL Hct 31.2 L (37.2-46.3) % Eosinophils # 0.50 H (0.04-0.35) X 10*3/uL Anion Gap 7.20 L (10.00-18.00) mmol/L POC Glucose (mg/dL) 108 H (75-99) mg/dL Calcium 8.3 L (8.7-10.3) mg/dL Microbiology - Last 24 Hours (Table) 02/02/22 10:30 Urine Culture - Preliminary Urine,Voided Diabetes panel 02/03/22 Range/Units 05:39 Sodium 138 (135-145) mmol/L Potassium 3.6 (3.5-5.5) mmol/L Chloride 107 (96-109) mmol/L Carbon Dioxide 23.8 (20.0-27.5) mmol/L BUN 15.1 (9.0-27.0) mg/dL Creatinine 0.9 (0.6-1.5) mg/dL Glucose 83 (70-110) mg/dL Calcium 8.3 L (8.7-10.3) mg/dL Calcium panel 02/03/22 Range/Units 05:39 Calcium 8.3 L (8.7-10.3) mg/dL Pituitary panel 02/03/22 Range/Units 05:39 Sodium 138 (135-145) mmol/L Potassium 3.6 (3.5-5.5) mmol/L Chloride 107 (96-109) mmol/L Carbon Dioxide 23.8 (20.0-27.5) mmol/L BUN 15.1 (9.0-27.0) mg/dL Creatinine 0.9 (0.6-1.5) mg/dL Glucose 83 (70-110) mg/dL Calcium 8.3 L (8.7-10.3) mg/dL Adrenal panel 02/03/22 Range/Units 05:39 Sodium 138 (135-145) mmol/L Potassium 3.6 (3.5-5.5) mmol/L Chloride 107 (96-109) mmol/L Carbon Dioxide 23.8 (20.0-27.5) mmol/L BUN 15.1 (9.0-27.0) mg/dL Creatinine 0.9 (0.6-1.5) mg/dL Glucose 83 (70-110) mg/dL Calcium 8.3 L (8.7-10.3) mg/dL
--- NOTE | 2022-02-03 12:17 | P.HPIM ---
History of Present Illness H&P Date: 02/02/22 Chief Complaint: abdominal pain Patient is a very pleasant 56 year old female that presented to the emergency room with abdominal pain and decreased urine output. Patient was seen in the office for UTI approximately two weeks ago. Patient was started on cipro and then changed to macrobid due to urine culture sensitivity results for Ecoli. Patient reports improvement of symptoms until finishing course of macrobid. Patient reports having severe pelvic pain with little urine output and no bowel movement since Monday since finishing macrobid course. Urinalysis was grossly positive, urine culture was obtained. KUB xray shows significant air in bladder. Abdominal CT showed mild distention of bladder with air, possible fistula. Patient was given one dose of rocephin. WBC was normal at 10.3, sodium was low at 128, was given a bolus of normal saline. Urology and infectious disease was consulted. Patient has a pertinent medical history of type 2 diabetes, hypertension, hyperlipidemia, GERD, COPD, OA, PVD, and neuropathy. Patient does report a history of possible fistula, but was not found during surgery over 10 years ago. Review of Systems Constitutional: Denies chills, Denies fever Ears, nose, mouth and throat: Denies headache, Denies vertigo Cardiovascular: Denies chest pain, Denies irregular heart beat Respiratory: Denies congestion, Denies cough Gastrointestinal: Reports abdominal pain, Reports change in bowel habits, Reports constipation, Denies diarrhea Genitourinary: Reports dysuria Musculoskeletal: Denies gait dysfunction, Denies muscle weakness Integumentary: Denies change in hair/nails, Denies wounds Neurological: Denies ataxia, Denies headaches Psychiatric: Denies confusion, Denies depression Endocrine: Reports fatigue, Reports high blood sugars, Denies heat intolerance Hematologic/Lymphatic: Denies easy bruising Allergic/Immunologic: Denies angioedema Past Medical History Past Medical History: COPD, Diabetes Mellitus, Fibromyalgia, GERD/Reflux, Hypertension, Osteoarthritis (OA), Thyroid Disorder Additional Past Medical History / Comment(s): NEUROPATHY BILATERAL FEET, -DDD NECK AND LOWER BACK, hiatal hernia, no need for BP med anymore, hepatitis as a kid, fell & fx. left wrist 11-05-18-wearing splint History of Any Multi-Drug Resistant Organisms: MRSA Date of last positivie culture/infection: 05/2016 MDRO Source:: rt great toe Past Surgical History: Adenoidectomy, Back Surgery, Bladder Surgery, Hysterectomy, Orthopedic Surgery, Tonsillectomy, Tubal Ligation Additional Past Surgical History / Comment(s): Debridement R foot, PICC line/later removed, bladder suspension, exploratory laparotomy, rt great toe amputation, pins right feet, cataracts removed Past Anesthesia/Blood Transfusion Reactions: No Reported Reaction Additional Past Anesthesia/Blood Transfusion Reaction / Comment(s): . Past Psychological History: Anxiety Smoking Status: Current every day smoker Past Alcohol Use History: None Reported, Rare Past Drug Use History: None Reported - Past Family History Mother Family Medical History: No Reported History Additional Family Medical History / Comment(s): Mother has back problems. She is 73 yrs old. Father Additional Family Medical History / Comment(s): at 26yrs old--accident at work Medications and Allergies Home Medications Medication Instructions Recorded Confirmed Type Acetaminophen Tab [Tylenol] 2,000 mg PO BID PRN 08/20/21 02/02/22 History Fluticasone/Umeclidin/Vilanter 1 puff INHALATION RT-DAILY 08/20/21 02/02/22 History [Laquita Rileyta 100-62.5-25] Insulin Aspart [NovoLOG] See Protocol SQ TID-W/MEALS PRN 08/20/21 02/02/22 History Multivitamins, Thera [Multivitamin 1 tab PO DAILY 08/20/21 02/02/22 History (formulary)] Rosuvastatin [Crestor] 20 mg PO DAILY 08/20/21 02/02/22 History Clotrimazole Cream [Lotrimin Cream] 1 applic TOPICAL DAILY 02/02/22 02/02/22 History Fluticasone Nasal [place] [Flonase 1 spray EA NOSTRIL DAILY 02/02/22 02/02/22 History Nasal [place]] Insulin Glargine,Hum.rec.anlog 25 unit SQ DAILY 02/02/22 02/02/22 History [Lantus Solostar Pen] Levothyroxine Sodium [Synthroid] 175 mcg PO DAILY 02/02/22 02/02/22 History buPROPion XL [Wellbutrin XL] 150 mg PO DAILY 02/02/22 02/02/22 History traZODone HCL 50 mg PO HS 02/02/22 02/02/22 History Allergies Allergy/AdvReac Type Severity Reaction Status Date / Time Sulfa (Sulfonamide Allergy Rash/Hives Verified 02/02/22 08:18 Antibiotics) Physical Exam Vitals: Vital Signs Temp Pulse Resp BP Pulse Ox 02/02/22 07:29 98.6 F 90 16 163/79 98 Intake and Output 02/01/22 02/02/22 02/02/22 22:59 06:59 14:59 Other: Weight 62.596 kg - Constitutional General appearance: average body habitus, cooperative, no acute distress - EENT Eyes: EOMI, PERRLA ENT: normal oropharynx - Neck Neck: normal ROM - Respiratory Respiratory: bilateral: diminished - Cardiovascular Heart rate: 80 Rhythm: regular Heart sounds: normal: S1, S2 radial pulse Peripheral Pulses: bilateral: Normal - Gastrointestinal General gastrointestinal: normal bowel sounds, soft, tenderness Localized gastrointestinal: tender: suprabubic - Integumentary Integumentary: normal - Neurologic Neurologic: CNII-XII intact - Musculoskeletal Musculoskeletal: gait normal - Psychiatric Psychiatric: A&O x's 3, appropriate affect, intact judgment & insight Results CBC & Chem 7: 02/03/22 05:39 02/03/22 05:39 Labs: Abnormal Lab Results - Last 24 Hours (Table) 02/02/22 02/02/22 02/02/22 Range/Units 09:28 09:28 10:30 Neutrophils # 8.3 H (1.3-7.7) k/uL Sodium 128 L (137-145) mmol/L Potassium 5.2 H (3.5-5.1) mmol/L BUN 18 H (7-17) mg/dL Glucose 232 H (74-99) mg/dL Albumin 3.4 L (3.5-5.0) g/dL Urine Appearance Cloudy H (Clear) Urine Protein 2+ H (Negative) Urine Glucose (UA) 2+ H (Negative) Urine Blood Large H (Negative) Urine Nitrite Positive H (Negative) Ur Leukocyte Esterase Large H (Negative) Urine RBC 44 H (0-5) /hpf Urine WBC >182 H (0-5) /hpf Urine WBC Clumps Moderate H (None) /hpf Amorphous Sediment Rare H (None) /hpf Urine Bacteria Occasional H (None) /hpf Urine Mucus Rare H (None) /hpf CT scan - pelvis: report reviewed Thrombosis Risk Factor Assmnt - DVT/VTE Prophylaxis DVT/VTE Prophylaxis: Low risk, early ambulation encouraged - Choose All That Apply Any of the Below Risk Factors Present?: Yes Each Factor Represents 1 point: Age 41-60 years Thrombosis Risk Factor Assessment Total Risk Factor Score: 1 Thrombosis Risk Factor Assessment Level: Low Risk Assessment and Plan Assessment: Recurrent Urinary tract infections, failed outpatient treatment Pneumaturia, possible colovesical fistula Lower abdominal pain Hyponatremia Hypertension Type 2 diabetes osteoarthritis GERD Fibromyalgia COPD Plan: Infectious disease consult for recurrent UTI and failed treatment Urology consult for possible bladder fistula Normal saline ordered for hyponatremia, repeat lab work in the AM Continue monitoring vital signs and pain Monitoring blood glucose control, scale and long acting insulin Further recommendation to come based on patients clinical course. Time with Patient: Greater than 30
--- NOTE | 2022-02-03 12:27 | P.PN ---
Subjective Progress Note Date: 02/03/22 Principal diagnosis: UTI Patient is a very pleasant 56 year old female that presented to the emergency room with abdominal pain and decreased urine output. Patient was seen in the office for UTI approximately two weeks ago. Patient was started on cipro and then changed to macrobid due to urine culture sensitivity results for Ecoli. Patient reports improvement of symptoms until finishing course of macrobid. Patient reports having severe pelvic pain with little urine output and no bowel movement since Monday since finishing macrobid course. Urinalysis was grossly positive, urine culture was obtained. KUB xray shows significant air in bladder. Abdominal CT showed mild distention of bladder with air, possible fistula. Patient was given one dose of rocephin. WBC was normal at 10.3, sodium was low at 128, was given a bolus of normal saline. Urology and infectious disease was consulted. Patient has a pertinent medical history of type 2 diabetes, hypertension, hyperlipidemia, GERD, COPD, OA, PVD, and neuropathy. Patient does report a history of possible fistula, but was not found during surgery over 10 years ago. 02/03/2022 Patient was seen and assessed at bedside. Patient was resting comfortably in bed in no acute distress. Patient reports continued back pain but great improvement of lower abdominal pain. Denies fever, chills, chest pain or shortness of breath . Sodium improved to 138. Infectious disease started unasyn for UTI treatment. Urology recommended consult from general surgery who ordered a CT of abdomen and pelvis which did not show any change from yesterday. Awaiting further recommendations. Objective - Vital Signs Vital signs: Vital Signs Temp 98.3 F 02/03/22 08:00 Pulse 87 02/03/22 08:00 Resp 16 02/03/22 08:00 BP 99/63 02/03/22 08:00 Pulse Ox 96 02/03/22 08:00 Intake & Output 02/02/22 02/03/22 02/03/22 18:59 06:59 18:59 Intake Total 296 Balance 296 Weight 62.596 kg Intake: Oral 296 Other: Voiding Method Toilet Toilet # Voids 1 - Constitutional General appearance: Present: average body habitus, cooperative, no acute distress - EENT Eyes: Present: EOMI, PERRLA ENT: Present: normal oropharynx - Neck Neck: Present: normal ROM - Respiratory Respiratory: bilateral: CTA - Cardiovascular Heart rate: 70 Rhythm: regular - Peripheral pulses radial pulse Peripheral Pulses: bilateral: Normal - Gastrointestinal General gastrointestinal: Present: normal bowel sounds, tenderness - Integumentary Integumentary: Present: normal - Neurologic Neurologic: Present: CNII-XII intact - Musculoskeletal Musculoskeletal: Present: gait normal - Psychiatric Psychiatric: Present: A&O x's 3, appropriate affect, intact judgment & insight - Allied health notes Allied health notes reviewed: nursing - Labs CBC & Chem 7: 02/03/22 05:39 02/03/22 05:39 Labs: Abnormal Lab Results - Last 24 Hours (Table) 02/02/22 02/02/22 02/02/22 Range/Units 13:56 16:38 21:46 RBC (4.10-5.20) X 10*6/uL Hgb (12.0-15.0) g/dL Hct (37.2-46.3) % Eosinophils # (0.04-0.35) X 10*3/uL Anion Gap (10.00-18.00) mmol/L POC Glucose (mg/dL) 261 H 205 H 179 H (75-99) mg/dL Calcium (8.7-10.3) mg/dL 02/03/22 02/03/22 02/03/22 Range/Units 05:39 05:39 11:31 RBC 3.37 L (4.10-5.20) X 10*6/uL Hgb 10.2 L (12.0-15.0) g/dL Hct 31.2 L (37.2-46.3) % Eosinophils # 0.50 H (0.04-0.35) X 10*3/uL Anion Gap 7.20 L (10.00-18.00) mmol/L POC Glucose (mg/dL) 108 H (75-99) mg/dL Calcium 8.3 L (8.7-10.3) mg/dL Microbiology - Last 24 Hours (Table) 02/02/22 10:30 Urine Culture - Preliminary Urine,Voided - Imaging and Cardiology CT scan - abdomen: report reviewed Assessment and Plan Assessment: Recurrent Urinary tract infections, failed outpatient treatment Pneumaturia, 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 Time with Patient: Greater than 30
--- NOTE | 2022-02-03 15:26 | P.PN ---
Subjective Progress Note Date: 02/03/22 No acute overnight events, CT abdomen and pelvis was performed with PO contrast but contrast did not reach the colon, thus colovesicle fistula could not be evaluated Objective - Vital Signs Vital signs: Vital Signs Temp 98.2 F 02/03/22 14:00 Pulse 88 02/03/22 14:00 Resp 16 02/03/22 14:00 BP 170/69 02/03/22 14:00 Pulse Ox 97 02/03/22 14:00 Intake & Output 02/02/22 02/03/22 02/03/22 18:59 06:59 18:59 Intake Total 592 Balance 592 Weight 62.596 kg Intake: Oral 592 Other: Voiding Method Toilet Toilet # Voids 1 - Constitutional General appearance: Present: no acute distress - Gastrointestinal General gastrointestinal: Present: soft. Absent: distended, tenderness - Psychiatric Psychiatric: Present: A&O x's 3 - Labs CBC & Chem 7: 02/03/22 05:39 02/03/22 05:39 Labs: Abnormal Lab Results - Last 24 Hours (Table) 02/02/22 02/02/22 02/03/22 Range/Units 16:38 21:46 05:39 RBC 3.37 L (4.10-5.20) X 10*6/uL Hgb 10.2 L (12.0-15.0) g/dL Hct 31.2 L (37.2-46.3) % Eosinophils # 0.50 H (0.04-0.35) X 10*3/uL Anion Gap (10.00-18.00) mmol/L POC Glucose (mg/dL) 205 H 179 H (75-99) mg/dL Calcium (8.7-10.3) mg/dL 02/03/22 02/03/22 Range/Units 05:39 11:31 RBC (4.10-5.20) X 10*6/uL Hgb (12.0-15.0) g/dL Hct (37.2-46.3) % Eosinophils # (0.04-0.35) X 10*3/uL Anion Gap 7.20 L (10.00-18.00) mmol/L POC Glucose (mg/dL) 108 H (75-99) mg/dL Calcium 8.3 L (8.7-10.3) mg/dL Microbiology - Last 24 Hours (Table) 02/02/22 11:30 Blood Culture - Preliminary Blood No Growth after 24 hours 02/02/22 11:45 Blood Culture - Preliminary Blood No Growth after 24 hours 02/02/22 10:30 Urine Culture - Preliminary Urine,Voided Assessment and Plan Assessment: This is a 56-year-old female admitted to the hospital for failed outpatient UTI and colovesical fistula. 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 At this time discussed with her we will continue to treat her UTI, but discussed she will eventually require definitive treatment for her colovesical fistula. Discussed with her that she will eventually require cystoscopy to complete her bladder evaluation once her UTI resolves, this will be set up for her as an outpatient with Dr. Robbins -Follow up on urine cultures -F/U on general surgery recs
[2022-02-03 16:30] LABS: Glucose,Whole Blood 144 mg/dL (75-99)
[2022-02-03] MEDS: SODIUM CHLORIDE 0.9% 1,000 ML IV SCH ×2 (20:13→21:57)
[2022-02-03 21:15] LABS: Glucose,Whole Blood 205 mg/dL (75-99)
[2022-02-03] MEDS: traZODone HCL 50 MG TAB PO SCH (21:23)
--- NOTE | 2022-02-03 22:08 | P.PN ---
Subjective Progress Note Date: 02/03/22 Principal diagnosis: Urinary tract infection Patient is a 56-year-old female with a past medical history significant for recurrent UTI recently treated for UTI in the outpatient setting with a culture positive for E. coli subsequently presented to the hospital with deep pelvic pain and difficulty urination with evidence of significant cystitis on the CT. On today's evaluation that is 02/03/2022, the patient denies having any fever or chills, patient with abdominal pain has slightly decreased intensity, patient denies having any chest pain shortness of breath or cough no nausea no vomiting no abdominal pain no diarrhea Objective - Vital Signs Vital signs: Vital Signs Temp 98.3 F 02/03/22 08:00 Pulse 87 02/03/22 08:00 Resp 16 02/03/22 08:00 BP 99/63 02/03/22 08:00 Pulse Ox 96 02/03/22 08:00 Intake & Output 02/02/22 02/03/22 02/03/22 18:59 06:59 18:59 Intake Total 592 Balance 592 Weight 62.596 kg Intake: Oral 592 Other: Voiding Method Toilet Toilet # Voids 1 - Exam GENERAL DESCRIPTION: Middle-age female lying in bed in no distress RESPIRATORY SYSTEM: Unlabored breathing , decreased breath sounds at bases HEART: S1 S2 regular rate and rhythm , ABDOMEN: Soft , no tenderness EXTREMITIES: No edema feet - Labs CBC & Chem 7: 02/03/22 05:39 02/03/22 05:39 Labs: Abnormal Lab Results - Last 24 Hours (Table) 02/02/22 02/02/22 02/03/22 Range/Units 16:38 21:46 05:39 RBC 3.37 L (4.10-5.20) X 10*6/uL Hgb 10.2 L (12.0-15.0) g/dL Hct 31.2 L (37.2-46.3) % Eosinophils # 0.50 H (0.04-0.35) X 10*3/uL Anion Gap (10.00-18.00) mmol/L POC Glucose (mg/dL) 205 H 179 H (75-99) mg/dL Calcium (8.7-10.3) mg/dL 02/03/22 02/03/22 Range/Units 05:39 11:31 RBC (4.10-5.20) X 10*6/uL Hgb (12.0-15.0) g/dL Hct (37.2-46.3) % Eosinophils # (0.04-0.35) X 10*3/uL Anion Gap 7.20 L (10.00-18.00) mmol/L POC Glucose (mg/dL) 108 H (75-99) mg/dL Calcium 8.3 L (8.7-10.3) mg/dL Microbiology - Last 24 Hours (Table) 02/02/22 11:30 Blood Culture - Preliminary Blood No Growth after 24 hours 02/02/22 11:45 Blood Culture - Preliminary Blood No Growth after 24 hours 02/02/22 10:30 Urine Culture - Preliminary Urine,Voided Assessment and Plan (1) UTI (urinary tract infection) Current Visit: Yes Status: Acute Code(s): N39.0 - URINARY TRACT INFECTION, SITE NOT SPECIFIED SNOMED Code(s): 70934504 Plan: 1patient with a history of recurrent urinary tract infection presented to hospital with deep pelvic pressure some morning and this patient did have abnormal CT with evidence of cystitis and concern for possible gas producing bacteria versus emphysematous cystitis. Likely from enteric gram-negative with recent urine culture positive for E. coli in the outpatient setting which was sensitive. 2patient to continue with Unasyn 3 g every 6 hours while waiting for the cultures to be finalize She Time with Patient: Less than 30
[2022-02-04] MEDS: AMPICILLIN-SULBACTAM 3 GM in SODIUM CHLORIDE 0.9% 100 ML IVPB SCH ×4 (05:26→23:28)
[2022-02-04] MEDS: LEVOTHYROXINE 88 MCG TAB PO SCH (05:50)
[2022-02-04 07:15] LABS: Glucose,Whole Blood 284 mg/dL (75-99)
[2022-02-04] MEDS: IPRATROPIUM 0.5 MG/2.5 ML NEBU INHALATION SCH ×4 (08:24→20:50)
[2022-02-04] MEDS: SYMBICORT 80-4.5 MCG INHALER INHALATION SCH ×2 (08:24→20:50)
[2022-02-04] MEDS: INSULIN ASPART (NovoLOG) 100 UNIT/ML VIAL SQ SCH ×4 (08:28→21:26)
[2022-02-04] MEDS: buPROPion XL 150 MG TAB.ER.24H PO SCH (08:28)
[2022-02-04] MEDS: MULTIVITAMINS, THERA 1 EACH TAB PO SCH (08:28)
[2022-02-04] MEDS: traMADol 50 MG TAB PO PRN ×2 (08:28→21:26)
[2022-02-04] MEDS: ATORVASTATIN 40 MG TAB PO SCH (08:28)
[2022-02-04] MEDS: INSULIN DETEMIR (LEVEMIR) 100 UNIT/ML SYR SQ SCH (08:29)
[2022-02-04] MEDS: FLUTICASONE 50MCG/SPRAY NASAL 16GM EA NOSTRIL SCH (08:29)
[2022-02-04] MEDS: DOCUSATE 100 MG CAP PO SCH (08:29)
--- NOTE | 2022-02-04 11:23 | P.PN ---
Subjective Progress Note Date: 02/04/22 Principal diagnosis: UTI Patient is a very pleasant 56 year old female that presented to the emergency room with abdominal pain and decreased urine output. Patient was seen in the office for UTI approximately two weeks ago. Patient was started on cipro and then changed to macrobid due to urine culture sensitivity results for Ecoli. Patient reports improvement of symptoms until finishing course of macrobid. Patient reports having severe pelvic pain with little urine output and no bowel movement since Monday since finishing macrobid course. Urinalysis was grossly positive, urine culture was obtained. KUB xray shows significant air in bladder. Abdominal CT showed mild distention of bladder with air, possible fistula. Patient was given one dose of rocephin. WBC was normal at 10.3, sodium was low at 128, was given a bolus of normal saline. Urology and infectious disease was consulted. Patient has a pertinent medical history of type 2 diabetes, hypertension, hyperlipidemia, GERD, COPD, OA, PVD, and neuropathy. Patient does report a history of possible fistula, but was not found during surgery over 10 years ago. 02/03/2022 Patient was seen and assessed at bedside. Patient was resting comfortably in bed in no acute distress. Patient reports continued back pain but great improvement of lower abdominal pain. Denies fever, chills, chest pain or shortness of breath . Sodium improved to 138. Infectious disease started unasyn for UTI treatment. Urology recommended consult from general surgery who ordered a CT of abdomen and pelvis which did not show any change from yesterday. Awaiting further recommendations. 02/04/2022 Patient was seen and evaluated at bedside. Patient reports feeling better and wanting to go home. Discussed need for cultures to be final for appropriate treatment. Reports continued pelvic tenderness and having normal bowel movements. Denies shortness of breath, chest pain, fever, or chills. States her back hurts due to the hospital bed. PRN pain medication ordered. Objective - Vital Signs Vital signs: Vital Signs Temp 98.6 F 02/04/22 08:00 Pulse 86 02/04/22 08:26 Resp 16 02/04/22 08:26 BP 161/78 02/04/22 08:00 Pulse Ox 95 02/04/22 08:00 Intake & Output 04/28/22 04/29/22 04/29/22 18:59 06:59 18:59 Intake Total 2188 1200 296 Balance 2188 1200 296 Intake: Intake, IV Titration 1300 1200 Amount Ampicillin-Sulbactam 3 gm 200 200 In Sodium Chloride 0.9% 100 ml @ 200 mls/hr IVPB Q6HR [facility] Rx#:[id number] Sodium Chloride 0.9% 1, 1100 1000 000 ml @ 100 mls/hr IV . Q10H [facility] Rx#:[id number] Oral 888 [id number] Other: Voiding Method Toilet Toilet - Constitutional General appearance: Present: average body habitus, cooperative, no acute distress - EENT Eyes: Present: EOMI, PERRLA ENT: Present: normal oropharynx - Neck Neck: Present: normal ROM - Respiratory Respiratory: bilateral: CTA - Cardiovascular Heart rate: 70 Rhythm: regular Heart sounds: normal: S1, S2 - Peripheral pulses radial pulse Peripheral Pulses: bilateral: Normal - Gastrointestinal General gastrointestinal: Present: tenderness - Integumentary Integumentary: Present: normal - Neurologic Neurologic: Present: CNII-XII intact - Musculoskeletal Musculoskeletal: Present: gait normal - Psychiatric Psychiatric: Present: A&O x's 3, appropriate affect, intact judgment & insight - Allied health notes Allied health notes reviewed: nursing - Labs CBC & Chem 7: 02/03/22 05:39 02/03/22 05:39 Labs: Abnormal Lab Results - Last 24 Hours (Table) 02/03/22 02/03/22 02/03/22 Range/Units 11:31 16:30 21:14 POC Glucose (mg/dL) 108 H 144 H 205 H (75-99) mg/dL 02/04/22 Range/Units 07:13 POC Glucose (mg/dL) 284 H (75-99) mg/dL Microbiology - Last 24 Hours (Table) 02/02/22 10:30 Urine Culture - Preliminary Urine,Voided Gram Neg Bacilli 02/02/22 11:30 Blood Culture - Preliminary Blood No Growth after 24 hours 02/02/22 11:45 Blood Culture - Preliminary Blood No Growth after 24 hours Assessment and Plan Assessment: Recurrent Urinary tract infections, failed outpatient treatment Pneumaturia, 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 Time with Patient: Greater than 30
--- NOTE | 2022-02-04 11:38 | P.PN ---
Subjective Progress Note Date: 02/04/22 CHIEF COMPLAINT: Possible colovesical fistula HISTORY OF PRESENT ILLNESS: Patient reports that she is feeling better today. The lower abdominal pain and dysuria have decreased. She denies any more pneuma turia. Her urine is clear. Afebrile. White count 6.4 blood cultures are negative. urine culture growing gram-negative bacilli. Urology recommending cystoscopy outpatient. Medicine service awaiting urine culture to finalize before discharging patient. Both CAT scans reviewed by Dr. Roman. The patient's colon does not seem to be in close proximity to the bladder. Patient had a previous exploratory that was negative for findings of colovesical fistula. Clinically doubt enterovesical fistula at this time however not excluded. Would recommend eventual CT pelvis with cystogram however given the recent oral contrast this can likely be performed in the outpatient setting. PHYSICAL EXAM: VITAL SIGNS: Reviewed. GENERAL: Well-developed in no acute distress. HEENT: No sclera icterus. Extraocular movements grossly intact. Moist buccal mucosa. Head is atraumatic, normocephalic. ABDOMEN: Soft. Nondistended. Nontender. NEUROLOGIC: Alert and oriented. Cranial nerves II through XII grossly intact. ASSESSMENT: 1. Recurrent UTIs with failed treatment of UTI 2. Pneumaturia now resolved PLAN: -Recommend computed tomography scan pelvis with cystogram outpatient for further evaluation of possible colovesical fistula -Continue antibiotics per ID service -Continue supportive care Physician Panel [employer] note has been reviewed by physician. Signing provider agrees with the documented findings, assessment, and plan of care. I have personally seen and examined the patient, reviewed the GENERAL [employer]OOKKEEPER /PAs history, exam and MDM and agree with the assessment and plan as written. Based on total visit time, I have performed more than 50% of the visit. As above: Patient doing better today. No significant abdominal pain. Urine culture showing gram-negative bacilli. Recommend outpatient CT cystogram. Patient will follow-up in the office post discharge. We'll sign off at this point. Please call if needed. Objective - Vital Signs Vital signs: Vital Signs Temp 98.6 F 02/04/22 08:00 Pulse 86 02/04/22 08:26 Resp 16 02/04/22 08:26 BP 161/78 02/04/22 08:00 Pulse Ox 95 02/04/22 08:00 Intake & Output 02/03/22 02/04/22 02/04/22 18:59 06:59 18:59 Intake Total 2188 1200 296 Balance 2188 1200 296 Intake: Intake, IV Titration 1300 1200 Amount Ampicillin-Sulbactam 3 gm 200 200 In Sodium Chloride 0.9% 100 ml @ 200 mls/hr IVPB Q6HR [facility] Rx#:[id number] Sodium Chloride 0.9% 1, 1100 1000 000 ml @ 100 mls/hr IV . Q10H [facility] Rx#:[id number] Oral [id number] Other: Voiding Method Toilet Toilet - Labs CBC & Chem 7: 02/03/22 05:39 02/03/22 05:39 Labs: Abnormal Lab Results - Last 24 Hours (Table) 02/03/22 02/03/22 02/03/22 Range/Units 11:31 16:30 21:14 POC Glucose (mg/dL) 108 H 144 H 205 H (75-99) mg/dL 02/04/22 Range/Units 07:13 POC Glucose (mg/dL) 284 H (75-99) mg/dL Microbiology - Last 24 Hours (Table) 02/02/22 10:30 Urine Culture - Preliminary Urine,Voided Gram Neg Bacilli 02/02/22 11:30 Blood Culture - Preliminary Blood No Growth after 24 hours 02/02/22 11:45 Blood Culture - Preliminary Blood No Growth after 24 hours
[2022-02-04 11:54] LABS: Glucose,Whole Blood 208 mg/dL (75-99)
[2022-02-04 16:35] LABS: Glucose,Whole Blood 59 mg/dL (75-99)
[2022-02-04 16:54] LABS: Glucose,Whole Blood 72 mg/dL (75-99)
--- NOTE | 2022-02-04 17:33 | P.PN ---
Subjective Progress Note Date: 02/04/22 Principal diagnosis: Urinary tract infection Patient is a 56-year-old female with a past medical history significant for recurrent UTI recently treated for UTI in the outpatient setting with a culture positive for E. coli subsequently presented to the hospital with deep pelvic pain and difficulty urination with evidence of significant cystitis on the CT. On today's evaluation that is 02/04/2022, the patient remains to be afebrile, patient with abdominal pain has resolved and urine symptom has improved, the patient denies any pematuria, no chest pain shortness of breath or cough no abdominal pain no diarrhea Objective - Vital Signs Vital signs: Vital Signs Temp 97.6 F 02/04/22 14:00 Pulse 95 02/04/22 14:00 Resp 16 02/04/22 14:00 BP 171/80 02/04/22 14:00 Pulse Ox 97 02/04/22 14:00 Intake & Output 02/03/22 02/04/22 02/04/22 18:59 06:59 18:59 Intake Total 2188 1200 592 Balance 2188 1200 592 Intake: Intake, IV Titration 1300 1200 Amount Ampicillin-Sulbactam 3 gm 200 200 In Sodium Chloride 0.9% 100 ml @ 200 mls/hr IVPB Q6HR [facility] Rx#:[id number] Sodium Chloride 0.9% 1, 1100 1000 000 ml @ 100 mls/hr IV . Q10H [facility] Rx#:[id number] Oral [id number] Other: Voiding Method Toilet Toilet - Exam GENERAL DESCRIPTION: Middle-age female lying in bed in no distress RESPIRATORY SYSTEM: Unlabored breathing , decreased breath sounds at bases HEART: S1 S2 regular rate and rhythm , ABDOMEN: Soft , no tenderness EXTREMITIES: No edema feet - Labs CBC & Chem 7: 02/03/22 05:39 02/03/22 05:39 Labs: Abnormal Lab Results - Last 24 Hours (Table) 02/03/22 02/03/22 02/04/22 Range/Units 16:30 21:14 07:13 POC Glucose (mg/dL) 144 H 205 H 284 H (75-99) mg/dL 02/04/22 Range/Units 11:52 POC Glucose (mg/dL) 208 H (75-99) mg/dL Microbiology - Last 24 Hours (Table) 02/02/22 11:30 Blood Culture - Preliminary Blood No Growth after 48 hours 02/02/22 11:45 Blood Culture - Preliminary Blood No Growth after 48 hours 02/02/22 10:30 Urine Culture - Preliminary Urine,Voided Gram Neg Bacilli Assessment and Plan (1) UTI (urinary tract infection) Current Visit: Yes Status: Acute Code(s): N39.0 - URINARY TRACT INFECTION, SITE NOT SPECIFIED SNOMED Code(s): 52523221 Plan: 1patient with a history of recurrent urinary tract infection [facility] with deep pelvic pressure some morning and this patient did have abnormal CT with evidence of cystitis and concern for possible gas producing bacteria versus emphysematous cystitis. Likely from enteric gram-negative with recent urine culture positive for E. coli in the outpatient setting which was sensitive. 2patient is currently being treated with Unasyn 3 g every 6 hours which will be continued while waiting for the cultures to be finalize to determine her discharge antibiotics Time with Patient: Less than 30
[2022-02-04] MEDS: ACETAMINOPHEN TAB 325 MG TAB PO PRN (17:36)
[2022-02-04] MEDS: SODIUM CHLORIDE 0.9% 1,000 ML IV SCH ×2 (19:43→21:28)
[2022-02-04 19:45] VITALS: RESP 18
[2022-02-04 21:21] LABS: Glucose,Whole Blood 194 mg/dL (75-99)
[2022-02-04] MEDS: traZODone HCL 50 MG TAB PO SCH (21:27)
[2022-02-05 02:25] LABS: Glucose,Whole Blood 198 mg/dL (75-99)
[2022-02-05] MEDS: ACETAMINOPHEN TAB 325 MG TAB PO PRN ×2 (03:36→08:18)
[2022-02-05] MEDS: SODIUM CHLORIDE 0.9% 1,000 ML IV SCH ×2 (03:38→08:15)
[2022-02-05] MEDS: AMPICILLIN-SULBACTAM 3 GM in SODIUM CHLORIDE 0.9% 100 ML IVPB SCH ×2 (05:37→12:31)
[2022-02-05] MEDS: LEVOTHYROXINE 88 MCG TAB PO SCH (06:02)
[2022-02-05 07:18] LABS: Glucose,Whole Blood 345 mg/dL (75-99)
[2022-02-05] MEDS: SYMBICORT 80-4.5 MCG INHALER INHALATION SCH (07:20)
[2022-02-05] MEDS: IPRATROPIUM 0.5 MG/2.5 ML NEBU INHALATION SCH ×3 (07:20→15:20)
[2022-02-05] MEDS ORDERED: ONDANSETRON 4 MG/2 ML VIAL IVP PRN (08:11)
[2022-02-05] MEDS: ATORVASTATIN 40 MG TAB PO SCH (08:12)
[2022-02-05] MEDS: INSULIN DETEMIR (LEVEMIR) 100 UNIT/ML SYR SQ SCH (08:12)
[2022-02-05] MEDS: DOCUSATE 100 MG CAP PO SCH (08:12)
[2022-02-05] MEDS: MULTIVITAMINS, THERA 1 EACH TAB PO SCH (08:12)
[2022-02-05] MEDS: INSULIN ASPART (NovoLOG) 100 UNIT/ML VIAL SQ SCH ×2 (08:12→12:30)
[2022-02-05] MEDS: buPROPion XL 150 MG TAB.ER.24H PO SCH (08:13)
[2022-02-05] MEDS: FLUTICASONE 50MCG/SPRAY NASAL 16GM EA NOSTRIL SCH (08:14)
[2022-02-05 08:34] LABS: HGB 9.4 g/dL (12.0-15.0); MCH 30.6 pg (27.0-32.0); MCHC 33.6 g/dL (32.0-37.0); MCV 91.2 fL (80.0-97.0); NRBC Per 100 WBC 0 /100 WBCS (0.0-0.0); Platelet Count 265 X 10*3/uL (140-440); RBC 3.07 X 10*6/uL (4.10-5.20); RDW 11.9 % (11.5-14.5); WBC 6.72 X 10*3/uL (4.50-10.00)
[2022-02-05 08:49] VITALS: PULSE 83
[2022-02-05 09:57] LABS: ALT 13 U/L (8-44); AST 19 U/L (13-35); African American GFR (CKD) 82.3 (60.0-200.0); Albumin 2.7 g/dL (3.8-4.9); Albumin/Globulin Ratio 1.29 (1.60-3.17); Alkaline Phosphatase 70 U/L (41-126); BUN/Creat Ratio 15.56 Ratio (12.00-20.00); Calcium 8.2 mg/dL (8.7-10.3); Carbon Dioxide 22.8 mmol/L (20.0-27.5); Chloride 104 mmol/L (96-109); Globulin 2.1 g/dL (1.6-3.3); Glucose 276 mg/dL (70-110); Sodium 136 mmol/L (135-145); Total Bilirubin <0.15 mg/dL (0.30-1.20); Total Protein 4.8 g/dL (6.2-8.2)
[2022-02-05 11:28] LABS: Glucose,Whole Blood 213 mg/dL (75-99)
--- NOTE | 2022-02-05 13:10 | P.PN ---
Subjective No acute overnight events, her bladder symptoms are improving. urine culture growing E. coli Objective - Vital Signs Vital signs: Vital Signs Temp 98.3 F 02/05/22 08:00 Pulse 83 02/05/22 08:00 Resp 18 02/05/22 02:13 BP 164/72 02/05/22 08:00 Pulse Ox 95 02/05/22 08:00 Intake & Output 02/04/22 02/05/22 02/05/22 18:59 06:59 18:59 Intake Total 888 900 Balance 888 900 Intake: Intake, IV Titration 900 Amount Ampicillin-Sulbactam 3 gm 100 In Sodium Chloride 0.9% 100 ml @ 200 mls/hr IVPB Q6HR [facility] Rx#:[id number] Sodium Chloride 0.9% 1, 800 000 ml @ 100 mls/hr IV . Q10H [facility] Rx#:[id number] Oral 888 Other: Voiding Method Toilet Toilet # Voids 2 - Constitutional General appearance: Present: no acute distress - Labs CBC & Chem 7: 02/05/22 04:17 02/05/22 04:17 Labs: Abnormal Lab Results - Last 24 Hours (Table) 02/04/22 02/04/22 02/04/22 Range/Units 16:34 16:52 21:19 RBC (4.10-5.20) X 10*6/uL Hgb (12.0-15.0) g/dL Hct (37.2-46.3) % Anion Gap (10.00-18.00) mmol/L Glucose (70-110) mg/dL POC Glucose (mg/dL) 59 L 72 L 194 H (75-99) mg/dL Calcium (8.7-10.3) mg/dL Total Bilirubin (0.30-1.20) mg/dL Total Protein (6.2-8.2) g/dL Albumin (3.8-4.9) g/dL Albumin/Globulin Ratio (1.60-3.17) g/dL 02/05/22 02/05/22 02/05/22 Range/Units 02:23 04:17 04:17 RBC 3.07 L (4.10-5.20) X 10*6/uL Hgb 9.4 L (12.0-15.0) g/dL Hct 28.0 L (37.2-46.3) % Anion Gap 9.20 L (10.00-18.00) mmol/L Glucose 276 H (70-110) mg/dL POC Glucose (mg/dL) 198 H (75-99) mg/dL Calcium 8.2 L (8.7-10.3) mg/dL Total Bilirubin <0.15 L (0.30-1.20) mg/dL Total Protein 4.8 L (6.2-8.2) g/dL Albumin 2.7 L (3.8-4.9) g/dL Albumin/Globulin Ratio 1.29 L (1.60-3.17) g/dL 02/05/22 02/05/22 Range/Units 07:11 11:27 RBC (4.10-5.20) X 10*6/uL Hgb (12.0-15.0) g/dL Hct (37.2-46.3) % Anion Gap (10.00-18.00) mmol/L Glucose (70-110) mg/dL POC Glucose (mg/dL) 345 H 213 H (75-99) mg/dL Calcium (8.7-10.3) mg/dL Total Bilirubin (0.30-1.20) mg/dL Total Protein (6.2-8.2) g/dL Albumin (3.8-4.9) g/dL Albumin/Globulin Ratio (1.60-3.17) g/dL Microbiology - Last 24 Hours (Table) 02/02/22 10:30 Urine Culture - Final Urine,Voided Escherichia coli 02/02/22 11:30 Blood Culture - Preliminary Blood No Growth after 48 hours 02/02/22 11:45 Blood Culture - Preliminary Blood No Growth after 48 hours Assessment and Plan Assessment: This is a 56-year-old female admitted to the hospital for failed outpatient UTI and colovesical fistula. Discussed with her given the finding of air in the bladder on CT and her symptoms of pneumaturia the findings are concerning for colovesical fistula. urine culture growing E. coli. CT abdomen and pelvis with by mouth contrast did not clearly some fistula, at this time address her that she will need an outpatient cystoscopy and possibly a CT cystogram to better evaluate ] -ID onboard for her UTI -F/U on general surgery recs -okay for discharge from urology stand point will need an outpatient cystoscopy
[2022-02-05 14:06] LABS: Glucose,Whole Blood 56 mg/dL (75-99)
[2022-02-05 14:28] LABS: Glucose,Whole Blood 55 mg/dL (75-99)
[2022-02-05 14:49] LABS: Glucose,Whole Blood 62 mg/dL (75-99)
[2022-02-05 14:52] VITALS: BP 126/68; TEMP 98
[2022-02-05 15:07] LABS: Glucose,Whole Blood 78 mg/dL (75-99)
--- NOTE | 2022-02-05 23:25 | P.PN ---
Subjective Progress Note Date: 02/05/22 Principal diagnosis: Urinary tract infection Patient is a 56-year-old female with a past medical history significant for recurrent UTI recently treated for UTI in the outpatient setting with a culture positive for E. coli subsequently presented to the hospital with deep pelvic pain and difficulty urination with evidence of significant cystitis on the CT. On today's evaluation that is 02/05/2022, the patient is afebrile, patient abdominal pain has resolved and the patient urine symptom has improved, the patient denies chest pain shortness of breath or cough no abdominal pain no diarrhea, patient is feeling better was to go home Objective - Vital Signs Vital signs: Vital Signs Temp 98.3 F 02/05/22 08:00 Pulse 83 02/05/22 08:00 Resp 18 02/05/22 02:13 BP 164/72 02/05/22 08:00 Pulse Ox 95 02/05/22 08:00 Intake & Output 02/04/22 02/05/22 02/05/22 18:59 06:59 18:59 Intake Total 888 900 Balance 888 900 Intake: Intake, IV Titration 900 Amount Ampicillin-Sulbactam 3 gm 100 In Sodium Chloride 0.9% 100 ml @ 200 mls/hr IVPB Q6HR [facility] Rx#:[id number] Sodium Chloride 0.9% 1, 800 000 ml @ 100 mls/hr IV . Q10H [facility]ND[facility] Rx#:[id number] Oral 888 Other: Voiding Method Toilet Toilet # Voids 2 - Exam GENERAL DESCRIPTION: Middle-age female lying in bed in no distress RESPIRATORY SYSTEM: Unlabored breathing , decreased breath sounds at bases HEART: S1 S2 regular rate and rhythm , ABDOMEN: Soft , no tenderness EXTREMITIES: No edema feet - Labs CBC & Chem 7: 02/05/22 04:17 02/05/22 04:17 Labs: Abnormal Lab Results - Last 24 Hours (Table) 02/04/22 02/04/22 02/04/22 Range/Units 16:34 16:52 21:19 RBC (4.10-5.20) X 10*6/uL Hgb (12.0-15.0) g/dL Hct (37.2-46.3) % Anion Gap (10.00-18.00) mmol/L Glucose (70-110) mg/dL POC Glucose (mg/dL) 59 L 72 L 194 H (75-99) mg/dL Calcium (8.7-10.3) mg/dL Total Bilirubin (0.30-1.20) mg/dL Total Protein (6.2-8.2) g/dL Albumin (3.8-4.9) g/dL Albumin/Globulin Ratio (1.60-3.17) g/dL 02/05/22 02/05/22 02/05/22 Range/Units 02:23 04:17 04:17 RBC 3.07 L (4.10-5.20) X 10*6/uL Hgb 9.4 L (12.0-15.0) g/dL Hct 28.0 L (37.2-46.3) % Anion Gap 9.20 L (10.00-18.00) mmol/L Glucose 276 H (70-110) mg/dL POC Glucose (mg/dL) 198 H (75-99) mg/dL Calcium 8.2 L (8.7-10.3) mg/dL Total Bilirubin <0.15 L (0.30-1.20) mg/dL Total Protein 4.8 L (6.2-8.2) g/dL Albumin 2.7 L (3.8-4.9) g/dL Albumin/Globulin Ratio 1.29 L (1.60-3.17) g/dL 02/05/22 02/05/22 02/05/22 Range/Units 07:11 11:27 14:04 RBC (4.10-5.20) X 10*6/uL Hgb (12.0-15.0) g/dL Hct (37.2-46.3) % Anion Gap (10.00-18.00) mmol/L Glucose (70-110) mg/dL POC Glucose (mg/dL) 345 H 213 H 56 L (75-99) mg/dL Calcium (8.7-10.3) mg/dL Total Bilirubin (0.30-1.20) mg/dL Total Protein (6.2-8.2) g/dL Albumin (3.8-4.9) g/dL Albumin/Globulin Ratio (1.60-3.17) g/dL 02/05/22 Range/Units 14:27 RBC (4.10-5.20) X 10*6/uL Hgb (12.0-15.0) g/dL Hct (37.2-46.3) % Anion Gap (10.00-18.00) mmol/L Glucose (70-110) mg/dL POC Glucose (mg/dL) 55 L (75-99) mg/dL Calcium (8.7-10.3) mg/dL Total Bilirubin (0.30-1.20) mg/dL Total Protein (6.2-8.2) g/dL Albumin (3.8-4.9) g/dL Albumin/Globulin Ratio (1.60-3.17) g/dL Microbiology - Last 24 Hours (Table) 02/02/22 11:30 Blood Culture - Preliminary Blood No Growth after 72 hours 02/02/22 11:45 Blood Culture - Preliminary Blood No Growth after 72 hours 02/02/22 10:30 Urine Culture - Final Urine,Voided Escherichia coli Assessment and Plan (1) UTI (urinary tract infection) Status: Acute Code(s): N39.0 - URINARY TRACT INFECTION, SITE NOT SPECIFIED SNOMED Code(s): 84542830 Plan: 1patient with a history of recurrent urinary tract infection presented [facility] with deep pelvic pressure some morning and this patient did have abnormal CT with evidence of cystitis and concern for possible gas producing bacteria versus emphysematous cystitis. Likely from enteric gram-negative with recent urine culture has been finalized with an E. coli that is sensitive to pathogen patient will finish therapy with oral Ceftin 500 mg twice a day for 10 days prescription had been sent to the pharmacy, with the patient UTI correlating with his sexual activity she has been advised taking antibiotics before any sexual activity and to empty bladder after any activity also advised to increase her fluid intake to decrease the risk of recurrent UTI Time with Patient: Less than 30
== END 2022-02-05 16:18 | disposition home or self-care (01) | DRG 690 ==
LOC: EC 07:28 → 4SSUR 11:38
PROVIDERS: ADMIT Family Medicine; ATTEND Family Medicine
DX: N30.90 Cystitis, unspecified without hematuria (principal); E87.1 Hypo-osmolality and hyponatremia; N32.1 Vesicointestinal fistula; E11.9 Type 2 diabetes mellitus without complications; E78.5 Hyperlipidemia, unspecified; F17.200 Nicotine dependence, unspecified, uncomplicated; F41.9 Anxiety disorder, unspecified; I10 Essential (primary) hypertension; J44.9 Chronic obstructive pulmonary disease, unspecified; K21.9 Gastro-esophageal reflux disease without esophagitis; M19.90 Unspecified osteoarthritis, unspecified site; M79.7 Fibromyalgia; Z79.890 Hormone replacement therapy; Z79.899 Other long term (current) drug therapy; Z87.440 Personal history of urinary (tract) infections; Z90.710 Acquired absence of both cervix and uterus; B96.20 Unspecified Escherichia coli [E. coli] as the cause of diseases classified elsewhere
CPT/HCPCS: 36415; 74018; 74176; 74177; 76770; 80048; 80053; 81001; 83605; 83690; 85025; 85027; 87040; 87077; 87086; 87186; 96361; 96374; 99285

== ENCOUNTER 2022-02-28 20:09 | Inpatient (IN) | payer OTHER ==
--- NOTE | 2022-02-28 21:12 | ED ---
Dizziness HPI - General Chief Complaint: Dizziness Stated Complaint: weakness, off balance Time Seen by Provider: 02/28/22 21:03 Source: patient Mode of arrival: ambulatory - History of Present Illness Initial Comments: 56-year-old female presents to the emergency department for presyncope. Reports that for the past several days she gets extremely dizzy upon standing. She is a diabetic and thought this may be due to her sugars. States that she checked her glucose level at home and it read high. She denies that she has missed any doses of her insulin. She denies any chest pain or shortness of breath. Does admit to mild headaches with no visual changes. Patient was hospitalized earlier this month for a bad urinary tract infection. Admits normal appetite. No issues with her bowel or bladder habits. No other alleviating, precipitating or modifying factors - Related Data Home Medications Medication Instructions Recorded Confirmed Acetaminophen Tab [Tylenol] 2,000 mg PO DAILY 08/20/21 02/28/22 Fluticasone/Umeclidin/Vilanter 1 puff INHALATION RT-DAILY 08/20/21 02/28/22 [Trelegy Ellipta 100-62.5-25] Rosuvastatin [Crestor] 20 mg PO DAILY 08/20/21 02/28/22 Clotrimazole Cream [Lotrimin Cream] 1 applic TOPICAL DAILY 02/02/22 02/28/22 Fluticasone Nasal [place] [Flonase 1 spray EA NOSTRIL DAILY 02/02/22 02/28/22 Nasal [place]] Insulin Glargine,Hum.rec.anlog 25 unit SQ DAILY 02/02/22 02/28/22 [Lantus Solostar Pen] Levothyroxine Sodium [Synthroid] 175 mcg PO DAILY 02/02/22 02/28/22 buPROPion XL [Wellbutrin XL] 150 mg PO DAILY 02/02/22 02/28/22 traZODone HCL 50 mg PO HS 02/02/22 02/28/22 Insulin Aspart [NovoLOG Flexpen] See Protocol SQ AC-TID 02/28/22 02/28/22 Allergies Allergy/AdvReac Type Severity Reaction Status Date / Time Sulfa (Sulfonamide Allergy Rash/Hives Verified 02/28/22 22:54 Antibiotics) Review of Systems ROS Statement: Those systems with pertinent positive or pertinent negative responses have been documented in the HPI. ROS Other: All systems not noted in ROS Statement are negative. Past Medical History Past Medical History: COPD, Diabetes Mellitus, Fibromyalgia, GERD/Reflux, Hypertension, Osteoarthritis (OA), Thyroid Disorder Additional Past Medical History / Comment(s): NEUROPATHY BILATERAL FEET, -DDD NECK AND LOWER BACK, hiatal hernia, no need for BP med anymore, hepatitis as a kid, fell & fx. left wrist 11-05-18-wearing splint History of Any Multi-Drug Resistant Organisms: MRSA Date of last positivie culture/infection: 05/2016 MDRO Source:: rt great toe Past Surgical History: Adenoidectomy, Back Surgery, Bladder Surgery, Hysterectomy, Orthopedic Surgery, Tonsillectomy, Tubal Ligation Additional Past Surgical History / Comment(s): Debridement R foot, PICC line/ later removed, bladder suspension, exploratory laparotomy, rt great toe amputation, pins right feet, cataracts removed Past Anesthesia/Blood Transfusion Reactions: No Reported Reaction Additional Past Anesthesia/Blood Transfusion Reaction / Comment(s): . Past Psychological History: Anxiety Smoking Status: Current every day smoker Past Alcohol Use History: None Reported, Rare Past Drug Use History: None Reported - Past Family History Mother Family Medical History: No Reported History Additional Family Medical History / Comment(s): Mother has back problems. She is 73 yrs old. Father Additional Family Medical History / Comment(s): at 26yrs old--accident at work General Exam General appearance: alert, in no apparent distress Head exam: Present: atraumatic, normocephalic, normal inspection, other (face is symmetric) Eye exam: Present: normal appearance, PERRL, EOMI. Absent: scleral icterus, conjunctival injection, periorbital swelling ENT exam: Present: normal exam, mucous membranes moist Neck exam: Present: normal inspection. Absent: tenderness, meningismus, lymphadenopathy Respiratory exam: Present: normal lung sounds bilaterally. Absent: respiratory distress, wheezes, rales, rhonchi, stridor Cardiovascular Exam: Present: regular rate, normal rhythm, normal heart sounds. Absent: systolic murmur, diastolic murmur, rubs, gallop, clicks GI/Abdominal exam: Present: soft, normal bowel sounds. Absent: distended, tenderness, guarding, rebound, rigid Extremities exam: Present: normal inspection, full ROM, normal capillary refill. Absent: tenderness, pedal edema, joint swelling, calf tenderness Back exam: Present: normal inspection Neurological exam: Present: alert, oriented X3, CN II-XII intact Psychiatric exam: Present: normal affect, normal mood Skin exam: Present: warm, dry, intact, normal color. Absent: rash Course Vital Signs 02/28/22 02/28/22 02/28/22 20:35 21:01 23:13 Temperature 98 F Pulse Rate 97 90 92 Respiratory 18 18 16 Rate Blood Pressure 141/74 179/80 168/83 O2 Sat by Pulse 96 97 97 Oximetry 03/01/22 01:36 Temperature Pulse Rate 88 Respiratory 16 Rate Blood Pressure 141/78 O2 Sat by Pulse 98 Oximetry EKG Findings - EKG Comments: EKG Findings:: EKG demonstrates sinus rhythm with a rate of 88. IN interval 163. QRS 89. QTC of 416. No acute ST segment elevations or depressions Medical Decision Making - Medical Decision Making Upon arrival patient is placed into room 2. History and physical exam is performed. Orthostatics are obtained and are positive as follows: laying - 168/73 sitting - 154/68 standing - 87/68 Patient is given a liter bolus of normal saline. Laboratory studies were conducted which demonstrate a glucose of 599. Patient does administer 9 units of insulin and this is rechecked which demonstrates a glucose of 234. Recommended admission for fluid hydration for which the patient did agree to. Spoke with Dr. Román SANTOS who agreed to admit the patient. - Lab Data Result diagrams: 03/04/22 08:32 03/04/22 08:32 Lab Results 02/28/22 02/28/22 02/28/22 Range/Units 22:31 22:31 22:31 WBC 6.6 (3.8-10.6) k/uL RBC 4.04 (3.80-5.40) m/uL Hgb 12.2 (11.4-16.0) gm/dL Hct 38.1 (34.0-46.0) % MCV 94.2 (80.0-100.0) fL MCH 30.2 (25.0-35.0) pg MCHC 32.1 (31.0-37.0) g/dL RDW 12.0 (11.5-15.5) % Plt Count 317 (150-450) k/uL MPV 7.5 Neutrophils % 67 % Lymphocytes % 24 % Monocytes % 3 % Eosinophils % 4 % Basophils % 1 % Neutrophils # 4.4 (1.3-7.7) k/uL Lymphocytes # 1.6 (1.0-4.8) k/uL Monocytes # 0.2 (0-1.0) k/uL Eosinophils # 0.3 (0-0.7) k/uL Basophils # 0.1 (0-0.2) k/uL PT 9.9 (9.0-12.0) sec INR 0.9 (<1.2) Sodium (137-145) mmol/L Potassium (3.5-5.1) mmol/L Chloride (98-107) mmol/L Carbon Dioxide (22-30) mmol/L Anion Gap mmol/L BUN (7-17) mg/dL Creatinine (0.52-1.04) mg/dL Est GFR (CKD-EPI)AfAm (>60 ml/min/1.73 sqM) Est GFR (CKD-EPI)NonAf (>60 ml/min/1.73 sqM) Glucose (74-99) mg/dL POC Glucose (mg/dL) (75-99) mg/dL POC Glu Scale Technician ID Estimated Ave Glu mg/dL Hemoglobin A1c (0.0-6.0) % Calcium (8.4-10.2) mg/dL Total Bilirubin (0.2-1.3) mg/dL AST (14-36) U/L ALT (4-34) U/L Alkaline Phosphatase (38-126) U/L Troponin I (0.000-0.034) ng/mL Total Protein (6.3-8.2) g/dL Albumin (3.5-5.0) g/dL Triglycerides (0.00-149.00) mg/dL Cholesterol (0.00-200.00) mg/dL LDL Cholesterol, Calc (0.0-131.0) mg/dL VLDL Cholesterol, Calc (5.00-40.00) mg/dL HDL Cholesterol (40.00-60.00) mg/dL Cholesterol/HDL Ratio Ratio TSH (0.465-4.680) mIU/L Urine Color Light Yellow Urine Appearance Clear (Clear) Urine pH 7.5 (5.0-8.0) Ur Specific [place] 1.027 (1.001-1.035) Urine Protein 2+ H (Negative) Urine Glucose (UA) 4+ H (Negative) Urine Ketones Negative (Negative) Urine Blood Trace H (Negative) Urine Nitrite Negative (Negative) Urine Bilirubin Negative (Negative) Urine Urobilinogen <2.0 (<2.0) mg/dL Ur Leukocyte Esterase Negative (Negative) Urine RBC 3 (0-5) /hpf Urine WBC 5 (0-5) /hpf Ur Squamous Epith Cells 3 (0-4) /hpf Urine Bacteria Rare H (None) /hpf 02/28/22 02/28/22 03/01/22 Range/Units 22:31 22:31 00:38 WBC (3.8-10.6) k/uL RBC (3.80-5.40) m/uL Hgb (11.4-16.0) gm/dL Hct (34.0-46.0) % MCV (80.0-100.0) fL MCH (25.0-35.0) pg MCHC (31.0-37.0) g/dL RDW (11.5-15.5) % Plt Count (150-450) k/uL MPV Neutrophils % % Lymphocytes % % Monocytes % % Eosinophils % % Basophils % % Neutrophils # (1.3-7.7) k/uL Lymphocytes # (1.0-4.8) k/uL Monocytes # (0-1.0) k/uL Eosinophils # (0-0.7) k/uL Basophils # (0-0.2) k/uL PT (9.0-12.0) sec INR (<1.2) Sodium 128 L (137-145) mmol/L Potassium 4.6 (3.5-5.1) mmol/L Chloride 95 L (98-107) mmol/L Carbon Dioxide 28 (22-30) mmol/L Anion Gap 5 mmol/L BUN 24 H (7-17) mg/dL Creatinine 1.27 H (0.52-1.04) mg/dL Est GFR (CKD-EPI)AfAm 54 (>60 ml/min/1.73 sqM) Est GFR (CKD-EPI)NonAf 47 (>60 ml/min/1.73 sqM) Glucose 599 H* (74-99) mg/dL POC Glucose (mg/dL) 234 H (75-99) mg/dL POC Glu Scale Technician ID [place] Estimated [address] Glu mg/dL Hemoglobin A1c (0.0-6.0) % Calcium 9.1 (8.4-10.2) mg/dL Total Bilirubin 0.2 (0.2-1.3) mg/dL AST 17 (14-36) U/L ALT 16 (4-34) U/L Alkaline Phosphatase 71 (38-126) U/L Troponin I <0.012 (0.000-0.034) ng/mL Total Protein 6.5 (6.3-8.2) g/dL Albumin 3.6 (3.5-5.0) g/dL Triglycerides (0.00-149.00) mg/dL Cholesterol (0.00-200.00) mg/dL LDL Cholesterol, Calc (0.0-131.0) mg/dL VLDL Cholesterol, Calc (5.00-40.00) mg/dL HDL Cholesterol (40.00-60.00) mg/dL Cholesterol/HDL Ratio Ratio TSH (0.465-4.680) mIU/L Urine Color Urine Appearance (Clear) Urine pH (5.0-8.0) Ur Specific [place] (1.001-1.035) Urine Protein (Negative) Urine Glucose (UA) (Negative) Urine Ketones (Negative) Urine Blood (Negative) Urine Nitrite (Negative) Urine Bilirubin (Negative) Urine Urobilinogen (<2.0) mg/dL Ur Leukocyte Esterase (Negative) Urine RBC (0-5) /hpf Urine WBC (0-5) /hpf Ur Squamous Epith Cells (0-4) /hpf Urine Bacteria (None) /hpf 03/01/22 03/01/22 03/01/22 Range/Units 01:51 04:17 05:40 WBC (3.8-10.6) k/uL RBC (3.80-5.40) m/uL Hgb (11.4-16.0) gm/dL Hct (34.0-46.0) % MCV (80.0-100.0) fL MCH (25.0-35.0) pg MCHC (31.0-37.0) g/dL RDW (11.5-15.5) % Plt Count (150-450) k/uL MPV Neutrophils % % Lymphocytes % % Monocytes % % Eosinophils % % Basophils % % Neutrophils # (1.3-7.7) k/uL Lymphocytes # (1.0-4.8) k/uL Monocytes # (0-1.0) k/uL Eosinophils # (0-0.7) k/uL Basophils # (0-0.2) k/uL PT (9.0-12.0) sec INR (<1.2) Sodium (137-145) mmol/L Potassium (3.5-5.1) mmol/L Chloride (98-107) mmol/L Carbon Dioxide (22-30) mmol/L Anion Gap mmol/L BUN (7-17) mg/dL Creatinine (0.52-1.04) mg/dL Est GFR (CKD-EPI)AfAm (>60 ml/min/1.73 sqM) Est GFR (CKD-EPI)NonAf (>60 ml/min/1.73 sqM) Glucose (74-99) mg/dL POC Glucose (mg/dL) 202 H 296 H 303 H (75-99) mg/dL POC Glu Scale Technician ID Estimated Ave Glu mg/dL Hemoglobin A1c (0.0-6.0) % Calcium (8.4-10.2) mg/dL Total Bilirubin (0.2-1.3) mg/dL AST (14-36) U/L ALT (4-34) U/L Alkaline Phosphatase (38-126) U/L Troponin I (0.000-0.034) ng/mL Total Protein (6.3-8.2) g/dL Albumin (3.5-5.0) g/dL Triglycerides (0.00-149.00) mg/dL Cholesterol (0.00-200.00) mg/dL LDL Cholesterol, Calc (0.0-131.0) mg/dL VLDL Cholesterol, Calc (5.00-40.00) mg/dL HDL Cholesterol (40.00-60.00) mg/dL Cholesterol/HDL Ratio Ratio TSH (0.465-4.680) mIU/L Urine Color Urine Appearance (Clear) Urine pH (5.0-8.0) Ur Specific [place] (1.001-1.035) Urine Protein (Negative) Urine Glucose (UA) (Negative) Urine Ketones (Negative) Urine Blood (Negative) Urine Nitrite (Negative) Urine Bilirubin (Negative) Urine Urobilinogen (<2.0) mg/dL Ur Leukocyte Esterase (Negative) Urine RBC (0-5) /hpf Urine WBC (0-5) /hpf Ur Squamous Epith Cells (0-4) /hpf Urine Bacteria (None) /hpf 03/01/22 03/01/22 03/01/22 Range/Units 06:32 06:32 06:32 WBC 7.0 (3.8-10.6) k/uL RBC 4.04 (3.80-5.40) m/uL Hgb 12.3 (11.4-16.0) gm/dL Hct 37.8 (34.0-46.0) % MCV 93.6 (80.0-100.0) fL MCH 30.4 (25.0-35.0) pg MCHC 32.5 (31.0-37.0) g/dL RDW 11.9 (11.5-15.5) % Plt Count 300 (150-450) k/uL MPV 7.6 Neutrophils % 53 % Lymphocytes % 36 % Monocytes % 4 % Eosinophils % 5 % Basophils % 1 % Neutrophils # 3.7 (1.3-7.7) k/uL Lymphocytes # 2.5 (1.0-4.8) k/uL Monocytes # 0.3 (0-1.0) k/uL Eosinophils # 0.4 (0-0.7) k/uL Basophils # 0.0 (0-0.2) k/uL PT (9.0-12.0) sec INR (<1.2) Sodium 132 L (137-145) mmol/L Potassium 4.9 (3.5-5.1) mmol/L Chloride 104 (98-107) mmol/L Carbon Dioxide 23 (22-30) mmol/L Anion Gap 5 mmol/L BUN 22 H (7-17) mg/dL Creatinine 0.98 (0.52-1.04) mg/dL Est GFR (CKD-EPI)AfAm 74 (>60 ml/min/1.73 sqM) Est GFR (CKD-EPI)NonAf 64 (>60 ml/min/1.73 sqM) Glucose 317 H (74-99) mg/dL POC Glucose (mg/dL) (75-99) mg/dL POC Glu Scale Technician ID Estimated Ave Glu mg/dL Hemoglobin A1c (0.0-6.0) % Calcium 8.8 (8.4-10.2) mg/dL Total Bilirubin (0.2-1.3) mg/dL AST (14-36) U/L ALT (4-34) U/L Alkaline Phosphatase (38-126) U/L Troponin I (0.000-0.034) ng/mL Total Protein (6.3-8.2) g/dL Albumin (3.5-5.0) g/dL Triglycerides (0.00-149.00) mg/dL Cholesterol (0.00-200.00) mg/dL LDL Cholesterol, Calc (0.0-131.0) mg/dL VLDL Cholesterol, Calc (5.00-40.00) mg/dL HDL Cholesterol (40.00-60.00) mg/dL Cholesterol/HDL Ratio Ratio TSH 1.800 (0.465-4.680) mIU/L Urine Color Urine Appearance (Clear) Urine pH (5.0-8.0) Ur Specific [place] (1.001-1.035) Urine Protein (Negative) Urine Glucose (UA) (Negative) Urine Ketones (Negative) Urine Blood (Negative) Urine Nitrite (Negative) Urine Bilirubin (Negative) Urine Urobilinogen (<2.0) mg/dL Ur Leukocyte Esterase (Negative) Urine RBC (0-5) /hpf Urine WBC (0-5) /hpf Ur Squamous Epith Cells (0-4) /hpf Urine Bacteria (None) /hpf 03/01/22 03/01/22 03/01/22 Range/Units 06:32 06:32 08:02 WBC (3.8-10.6) k/uL RBC (3.80-5.40) m/uL Hgb (11.4-16.0) gm/dL Hct (34.0-46.0) % MCV (80.0-100.0) fL MCH (25.0-35.0) pg MCHC (31.0-37.0) g/dL RDW (11.5-15.5) % Plt Count (150-450) k/uL MPV Neutrophils % % Lymphocytes % % Monocytes % % Eosinophils % % Basophils % % Neutrophils # (1.3-7.7) k/uL Lymphocytes # (1.0-4.8) k/uL Monocytes # (0-1.0) k/uL Eosinophils # (0-0.7) k/uL Basophils # (0-0.2) k/uL PT (9.0-12.0) sec INR (<1.2) Sodium (137-145) mmol/L Potassium (3.5-5.1) mmol/L Chloride (98-107) mmol/L Carbon Dioxide (22-30) mmol/L Anion Gap mmol/L BUN (7-17) mg/dL Creatinine (0.52-1.04) mg/dL Est GFR (CKD-EPI)AfAm (>60 ml/min/1.73 sqM) Est GFR (CKD-EPI)NonAf (>60 ml/min/1.73 sqM) Glucose (74-99) mg/dL POC Glucose (mg/dL) 357 H (75-99) mg/dL POC Glu Scale Technician ID Ramonita Wu Estimated Ave Glu mg/dL 203 Hemoglobin A1c 8.7 H (0.0-6.0) % Calcium (8.4-10.2) mg/dL Total Bilirubin (0.2-1.3) mg/dL AST (14-36) U/L ALT (4-34) U/L Alkaline Phosphatase (38-126) U/L Troponin I (0.000-0.034) ng/mL Total Protein (6.3-8.2) g/dL Albumin (3.5-5.0) g/dL Triglycerides 175.00 H (0.00-149.00) mg/dL Cholesterol 175.00 (0.00-200.00) mg/dL LDL Cholesterol, Calc 79.3 (0.0-131.0) mg/dL VLDL Cholesterol, Calc 35.00 (5.00-40.00) mg/dL HDL Cholesterol 60.70 H (40.00-60.00) mg/dL Cholesterol/HDL Ratio 2.88 Ratio TSH (0.465-4.680) mIU/L Urine Color Urine Appearance (Clear) Urine pH (5.0-8.0) Ur Specific [place] (1.001-1.035) Urine Protein (Negative) Urine Glucose (UA) (Negative) Urine Ketones (Negative) Urine Blood (Negative) Urine Nitrite (Negative) Urine Bilirubin (Negative) Urine Urobilinogen (<2.0) mg/dL Ur Leukocyte Esterase (Negative) Urine RBC (0-5) /hpf Urine WBC (0-5) /hpf Ur Squamous Epith Cells (0-4) /hpf Urine Bacteria (None) /hpf 03/01/22 03/01/22 03/01/22 Range/Units 09:58 11:30 12:03 WBC (3.8-10.6) k/uL RBC (3.80-5.40) m/uL Hgb (11.4-16.0) gm/dL Hct (34.0-46.0) % MCV (80.0-100.0) fL MCH (25.0-35.0) pg MCHC (31.0-37.0) g/dL RDW (11.5-15.5) % Plt Count (150-450) k/uL MPV Neutrophils % % Lymphocytes % % Monocytes % % Eosinophils % % Basophils % % Neutrophils # (1.3-7.7) k/uL Lymphocytes # (1.0-4.8) k/uL Monocytes # (0-1.0) k/uL Eosinophils # (0-0.7) k/uL Basophils # (0-0.2) k/uL PT (9.0-12.0) sec INR (<1.2) Sodium (137-145) mmol/L Potassium (3.5-5.1) mmol/L Chloride (98-107) mmol/L Carbon Dioxide (22-30) mmol/L Anion Gap mmol/L BUN (7-17) mg/dL Creatinine (0.52-1.04) mg/dL Est GFR (CKD-EPI)AfAm (>60 ml/min/1.73 sqM) Est GFR (CKD-EPI)NonAf (>60 ml/min/1.73 sqM) Glucose (74-99) mg/dL POC Glucose (mg/dL) 310 H 200 H 178 H (75-99) mg/dL POC Glu Scale Technician Ramonita Fontaine Donna Decker, Tammy Estimated Ave Glu mg/dL Hemoglobin A1c (0.0-6.0) % Calcium (8.4-10.2) mg/dL Total Bilirubin (0.2-1.3) mg/dL AST (14-36) U/L ALT (4-34) U/L Alkaline Phosphatase (38-126) U/L Troponin I (0.000-0.034) ng/mL Total Protein (6.3-8.2) g/dL Albumin (3.5-5.0) g/dL Triglycerides (0.00-149.00) mg/dL Cholesterol (0.00-200.00) mg/dL LDL Cholesterol, Calc (0.0-131.0) mg/dL VLDL Cholesterol, Calc (5.00-40.00) mg/dL HDL Cholesterol (40.00-60.00) mg/dL Cholesterol/HDL Ratio Ratio TSH (0.465-4.680) mIU/L Urine Color Urine Appearance (Clear) Urine pH (5.0-8.0) Ur Specific [place] (1.001-1.035) Urine Protein (Negative) Urine Glucose (UA) (Negative) Urine Ketones (Negative) Urine Blood (Negative) Urine Nitrite (Negative) Urine Bilirubin (Negative) Urine Urobilinogen (<2.0) mg/dL Ur Leukocyte Esterase (Negative) Urine RBC (0-5) /hpf Urine WBC (0-5) /hpf Ur Squamous Epith Cells (0-4) /hpf Urine Bacteria (None) /hpf 03/01/22 03/01/22 Range/Units 14:05 14:21 WBC (3.8-10.6) k/uL RBC (3.80-5.40) m/uL Hgb (11.4-16.0) gm/dL Hct (34.0-46.0) % MCV (80.0-100.0) fL MCH (25.0-35.0) pg MCHC (31.0-37.0) g/dL RDW (11.5-15.5) % Plt Count (150-450) k/uL MPV Neutrophils % % Lymphocytes % % Monocytes % % Eosinophils % % Basophils % % Neutrophils # (1.3-7.7) k/uL Lymphocytes # (1.0-4.8) k/uL Monocytes # (0-1.0) k/uL Eosinophils # (0-0.7) k/uL Basophils # (0-0.2) k/uL PT (9.0-12.0) sec INR (<1.2) Sodium (137-145) mmol/L Potassium (3.5-5.1) mmol/L Chloride (98-107) mmol/L Carbon Dioxide (22-30) mmol/L Anion Gap mmol/L BUN (7-17) mg/dL Creatinine (0.52-1.04) mg/dL Est GFR (CKD-EPI)AfAm (>60 ml/min/1.73 sqM) Est GFR (CKD-EPI)NonAf (>60 ml/min/1.73 sqM) Glucose (74-99) mg/dL POC Glucose (mg/dL) 38 L 89 (75-99) mg/dL POC Glu Scale Technician Fuad Sanchez [address] Glu mg/dL Hemoglobin A1c (0.0-6.0) % Calcium (8.4-10.2) mg/dL Total Bilirubin (0.2-1.3) mg/dL AST (14-36) U/L ALT (4-34) U/L Alkaline Phosphatase (38-126) U/L Troponin I (0.000-0.034) ng/mL Total Protein (6.3-8.2) g/dL Albumin (3.5-5.0) g/dL Triglycerides (0.00-149.00) mg/dL Cholesterol (0.00-200.00) mg/dL LDL Cholesterol, Calc (0.0-131.0) mg/dL VLDL Cholesterol, Calc (5.00-40.00) mg/dL HDL Cholesterol (40.00-60.00) mg/dL Cholesterol/HDL Ratio Ratio TSH (0.465-4.680) mIU/L Urine Color Urine Appearance (Clear) Urine pH (5.0-8.0) Ur Specific [place] (1.001-1.035) Urine Protein (Negative) Urine Glucose (UA) (Negative) Urine Ketones (Negative) Urine Blood (Negative) Urine Nitrite (Negative) Urine Bilirubin (Negative) Urine Urobilinogen (<2.0) mg/dL Ur Leukocyte Esterase (Negative) Urine RBC (0-5) /hpf Urine WBC (0-5) /hpf Ur Squamous Epith Cells (0-4) /hpf Urine Bacteria (None) /hpf Disposition Clinical Impression: Hyperglycemia, Orthostatic hypotension Disposition: ADMITTED IP TO THIS HOSP Condition: Stable Is patient prescribed a controlled substance at d/c from ED?: No Time of Disposition: 23:42 Decision to Admit Reason: Admit from EC Decision Date: 02/28/22 Decision Time: 23:42
[2022-02-28 22:47] LABS: Basophils # (A) 0.1 k/uL (0-0.2); Basophils % (A) 1 %; Eosinophils # (A) 0.3 k/uL (0-0.7); Eosinophils % (A) 4 %; HCT 38.1 % (34.0-46.0); HGB 12.2 gm/dL (11.4-16.0); Lymphocytes # (A) 1.6 k/uL (1.0-4.8); Lymphocytes % (A) 24 %; MCH 30.2 pg (25.0-35.0); MCHC 32.1 g/dL (31.0-37.0); MCV 94.2 fL (80.0-100.0); Mean Platelet Volume 7.5; Monocytes # (A) 0.2 k/uL (0-1.0); Monocytes % (A) 3 %; Neutrophils # (A) 4.4 k/uL (1.3-7.7); Neutrophils % (A) 67 %; Platelet Count 317 k/uL (150-450); RBC 4.04 m/uL (3.80-5.40); WBC 6.6 k/uL (3.8-10.6)
--- NOTE | 2022-02-28 22:48 | XR ---
EXAMINATION TYPE: XR chest 2V DATE OF EXAM: 02/28/2022 COMPARISON: 04/05/2016 HISTORY: Dizziness TECHNIQUE: FINDINGS: Heart and mediastinum are normal. Lungs are clear. Diaphragm is normal. Bony thorax appears normal. There are chest leads. IMPRESSION: Normal chest. No change.
[2022-02-28 22:53] LABS: Albumin 3.6 g/dL (3.5-5.0); Calcium 9.1 mg/dL (8.4-10.2); Potassium 4.6 mmol/L (3.5-5.1); Total Bilirubin 0.2 mg/dL (0.2-1.3); Total Protein 6.5 g/dL (6.3-8.2)
[2022-02-28] MEDS ORDERED: SODIUM CHLORIDE 0.9% 1,000 ML IV ONE (22:53)
[2022-02-28 22:54] LABS: INR 0.9 (<1.2); Prothrombin Time 9.9 sec (9.0-12.0)
[2022-02-28 22:59] LABS: Appearance,Urine Clear (Clear); Bacteria,Urine Rare /hpf; Bilirubin,Urine Negative (Negative); Blood,Urine Trace (Negative); Color,Urine Light Yellow; Glucose,Urine (UA) 4+ (Negative); Ketones,Urine Negative (Negative); Leukocyte Esterase,Urine Negative (Negative); Nitrite,Urine Negative (Negative); PH, Urine 7.5 (5.0-8.0); Protein,Urine 2+ (Negative); RBC,Urine 3 /hpf (0-5); Specific Gravity,Urine 1.027 (1.001-1.035); Squamous Epithelial Cell,Urine 3 /hpf (0-4); Urobilinogen,Urine <2.0 mg/dL (<2.0); WBC,Urine 5 /hpf (0-5)
--- NOTE | 2022-02-28 23:05 | CT ---
EXAMINATION TYPE: CT brain wo con DATE OF EXAM: 02/28/2022 COMPARISON: None HISTORY: headache CT DLP: 1169.2 mGycm Automated exposure control for dose reduction was used. Ventricles have normal size. There is no mass effect or midline shift. There is no sign of intracrani al hemorrhage. There is a 1.5 cm area of hypodensity in the white matter of the left anterior interna l capsule. The skull base is intact. No evidence of posterior fossa mass. Cerebellum appears normal. Calvarium is intact. IMPRESSION: Hypodensity in the left internal capsule consistent with old lacunar infarct. No hemorrhage.
[2022-02-28] MEDS ORDERED: NALOXONE 0.4 MG/ML 1 ML VIAL IV PRN (23:42)
[2022-03-01] MEDS ORDERED: ACETAMINOPHEN TAB 500 MG TAB PO STA (00:17)
[2022-03-01] MEDS: SODIUM CHLORIDE 0.9% 1,000 ML IV SCH ×2 (00:33→17:14)
[2022-03-01] MEDS ORDERED: INSULIN REGULAR 100 UNIT/ML VIAL (IV) IV ONE (00:36)
[2022-03-01 00:42] LABS: Glucose,Whole Blood 234 mg/dL (75-99)
[2022-03-01 01:53] LABS: Glucose,Whole Blood 202 mg/dL (75-99)
[2022-03-01 04:19] LABS: Glucose,Whole Blood 296 mg/dL (75-99)
[2022-03-01 05:41] LABS: Glucose,Whole Blood 303 mg/dL (75-99)
[2022-03-01] MEDS: LEVOTHYROXINE 88 MCG TAB PO SCH (05:42)
[2022-03-01 06:56] LABS: Basophils % (A) 1 %; Eosinophils # (A) 0.4 k/uL (0-0.7); Eosinophils % (A) 5 %; HCT 37.8 % (34.0-46.0); HGB 12.3 gm/dL (11.4-16.0); Lymphocytes # (A) 2.5 k/uL (1.0-4.8); Lymphocytes % (A) 36 %; MCH 30.4 pg (25.0-35.0); MCHC 32.5 g/dL (31.0-37.0); MCV 93.6 fL (80.0-100.0); Mean Platelet Volume 7.6; Monocytes # (A) 0.3 k/uL (0-1.0); Monocytes % (A) 4 %; Neutrophils # (A) 3.7 k/uL (1.3-7.7); Neutrophils % (A) 53 %; Platelet Count 300 k/uL (150-450); RBC 4.04 m/uL (3.80-5.40); RDW 11.9 % (11.5-15.5)
[2022-03-01 07:14] LABS: Calcium 8.8 mg/dL (8.4-10.2)
[2022-03-01] MEDS ORDERED: INSULIN ASPART (NovoLOG) 100 UNIT/ML VIAL SQ SCH (07:30)
[2022-03-01 07:33] LABS: Potassium 4.9 mmol/L (3.5-5.1)
[2022-03-01] MEDS: IPRATROPIUM 0.5 MG/2.5 ML NEBU INHALATION SCH ×4 (08:01→19:38)
[2022-03-01] MEDS: SYMBICORT 80-4.5 MCG INHALER INHALATION SCH ×2 (08:01→19:38)
[2022-03-01 08:04] LABS: Glucose,Whole Blood 357 mg/dL (75-99)
[2022-03-01] MEDS: ATORVASTATIN 40 MG TAB PO SCH ×2 (08:07→08:09)
[2022-03-01] MEDS: FLUTICASONE 50MCG/SPRAY NASAL 16GM EA NOSTRIL SCH (08:07)
[2022-03-01] MEDS: INSULIN DETEMIR (LEVEMIR) 100 UNIT/ML SYR SQ SCH (08:53)
[2022-03-01] MEDS: buPROPion XL 150 MG TAB.ER.24H PO SCH (08:54)
[2022-03-01 09:59] LABS: Glucose,Whole Blood 310 mg/dL (75-99)
[2022-03-01 11:33] LABS: Glucose,Whole Blood 200 mg/dL (75-99)
[2022-03-01 12:05] LABS: Glucose,Whole Blood 178 mg/dL (75-99)
--- NOTE | 2022-03-01 12:17 | CT ---
EXAMINATION TYPE: CT brain wo con DATE OF EXAM: 03/01/2022 COMPARISON: CT dated 02/28/2022 HISTORY: Dizziness. CT DLP: 1054.6 mGycm Automated exposure control for dose reduction was used. TECHNIQUE: CT scan of the brain is performed without IV contrast administration. FINDINGS: Redemonstration of the previously seen left frontal subcortical white matter hypodensity, likely repr esenting an infarct of indeterminate age versus ischemic focus. Bilateral cerebral white matter hypod ensities likely representing chronic microvascular ischemic changes. Right pontine hypodensity, more apparent and could represent an acute to subacute infarct versus artifact. No acute intracranial hemorrhage. No gross acute cortical infarct. No midline shift, herniation or ve ntriculomegaly. Unremarkable basal cisterns, sella and CP angles. No gross space-occupying lesion, va sogenic edema or mass effect. Unremarkable orbits. Clear visualized paranasal sinuses. Opacified left inferior mastoid air cells. N o aggressive bone lesion. IMPRESSION: Redemonstration of the left frontal subcortical white matter ischemic focus versus infarction of inde terminate age. More apparent right pontine hypodensity, possibly artifactual versus evolving acute to subacute infarct. Recommend clinical correlation. Further MRI assessment can be considered. Other fi ndings as described above.
--- NOTE | 2022-03-01 12:38 | CT ---
EXAMINATION TYPE: CT angio head neck DATE OF EXAM: 03/01/2022 HISTORY: Dizziness. COMPARISON: Nonenhanced CT brain performed earlier same day CT DLP: 219.6 mGycm. Automated Exposure Control for Dose Reduction was Utilized. TECHNIQUE: CTA scan of the head and neck is performed with IV Contrast, patient injected with 65ml m L of Isovue 370, axial images are obtained, coronal and sagittal reformatted images are reviewed. 3D reconstructed images are created on an independent workstation and reviewed. FINDINGS: Carotid/Vascular Structures: Normal caliber and enhancement of the neck arteries and intracranial art eries without significant stenosis, occlusion, dissection, aneurysm or AV malformation. Patent major intracranial venous sinuses. Other: No intracranial abnormal enhancement. Small thyroid gland. Degenerative changes at C6-7 level. IMPRESSION: No significant arterial abnormality is seen. Incidental findings as described above.
[2022-03-01] MEDS: ASPIRIN 325 MG TAB PO SCH (12:42)
[2022-03-01] MEDS: INSULIN ASPART (NovoLOG) 100 UNIT/ML VIAL SQ SCH ×3 (12:42→20:53)
--- NOTE | 2022-03-01 12:43 | P.HPIM ---
History of Present Illness H&P Date: 03/01/22 Chief Complaint: dizziness, near syncope Patient is a very pleasant 56 year old female that presented to the emergency room last night with dizziness and near syncope. Patient was seen in the office last week for similar symptoms, and was referred to the emergency room, was u nable to go due to family trouble. She reported dizziness with position changes, headaches, and feeling foggy. Patient has a pertinent medical history of type 1 diabetes, COPD, fibromyalgia, Hypertension, hyperlipidemia, OA, hypothyroidism, neuropathy, left wrist fracture, current smoker. Chest xray was negative, brain ct showed old lacunar infarct on left side. Orthostatic blood pressure were diana ssly positive in the emergency room. Neurology and cardiology were consulted for evaluation of syncope. This morning on exam, patient was noted to have slurred speech and left sided facial droop. Code stroke was called and CTA of head and neck was obtained, awaiting results and neurology recommendations. Review of Systems Constitutional: Reports weakness, Denies chills, Denies fever Ears, nose, mouth and throat: Denies dysphagia, Denies vertigo Cardiovascular: Reports syncope, Denies high blood pressure Respiratory: Denies cough, Denies dyspnea Gastrointestinal: Denies abdominal pain, Denies diarrhea, Denies nausea, Denies vomiting Musculoskeletal: Reports arm numbness/tingling, Reports muscle weakness Integumentary: Denies change in hair/nails, Denies wounds Neurological: Reports aphasia, Reports ataxia, Reports balance difficulties, Reports change in mentation, Reports change in speech, Reports headaches, Reports loss of vision, Reports sensory deficit, Reports syncope, Reports weakness, Reports visual changes Psychiatric: Denies anxiety, Denies depression Endocrine: Reports high blood sugars Hematologic/Lymphatic: Denies easy bruising Allergic/Immunologic: Denies angioedema Past Medical History Past Medical History: COPD, Diabetes Mellitus, Fibromyalgia, GERD/Reflux, Hypertension, Osteoarthritis (OA), Thyroid Disorder Additional Past Medical History / Comment(s): NEUROPATHY BILATERAL FEET, -DDD NECK AND LOWER BACK, hiatal hernia, no need for BP med anymore, hepatitis as a kid, fell & fx. left wrist 11-05-18-wearing splint History of Any Multi-Drug Resistant Organisms: MRSA Date of last positivie culture/infection: 05/2016 MDRO Source:: rt great toe Past Surgical History: Adenoidectomy, Back Surgery, Bladder Surgery, Hysterectomy, Orthopedic Surgery, Tonsillectomy, Tubal Ligation Additional Past Surgical History / Comment(s): Debridement R foot, PICC line/lat er removed, bladder suspension, exploratory laparotomy, rt great toe amputation, pins right feet, cataracts removed Past Anesthesia/Blood Transfusion Reactions: No Reported Reaction Additional Past Anesthesia/Blood Transfusion Reaction / Comment(s): . Past Psychological History: Anxiety Additional Psychological History / Comment(s): . Smoking Status: Current every day smoker Past Alcohol Use History: None Reported, Rare Additional Past Alcohol Use History / Comment(s): SMOKER SINCE 1983-10/10 PPD Past Drug Use History: None Reported - Past Family History Mother Family Medical History: No Reported History Additional Family Medical History / Comment(s): Mother has back problems. She is 73 yrs old. Father Additional Family Medical History / Comment(s): at 26yrs old--accident at work Medications and Allergies Home Medications Medication Instructions Recorded Confirmed Type Acetaminophen Tab [Tylenol] 2,000 mg PO DAILY 08/20/21 02/28/22 History Fluticasone/Umeclidin/Vilanter 1 puff INHALATION RT-DAILY 08/20/21 02/28/22 History [Trelegy Ellipta 100-62.5-25] Rosuvastatin [Crestor] 20 mg PO DAILY 08/20/21 02/28/22 History Clotrimazole Cream [Lotrimin Cream] 1 applic TOPICAL DAILY 02/02/22 02/28/22 History Fluticasone Nasal [place] [Flonase 1 spray EA NOSTRIL DAILY 02/02/22 02/28/22 History Nasal [place]] Insulin Glargine,Hum.rec.anlog 25 unit SQ DAILY 02/02/22 02/28/22 History [Lantus Solostar Pen] Levothyroxine Sodium [Synthroid] 175 mcg PO DAILY 02/02/22 02/28/22 History buPROPion XL [Wellbutrin XL] 150 mg PO DAILY 02/02/22 02/28/22 History traZODone HCL 50 mg PO HS 02/02/22 02/28/22 History Insulin Aspart [NovoLOG Flexpen] See Protocol SQ AC-TID 02/28/22 02/28/22 History Allergies Allergy/AdvReac Type Severity Reaction Status Date / Time Sulfa (Sulfonamide Allergy Rash/Hives Verified 02/28/22 22:54 Antibiotics) Physical Exam Vitals: Vital Signs Temp Pulse Pulse Pulse Pulse Pulse Resp 03/01/22 11:37 98.0 F 81 14 03/01/22 11:25 84 95 81 03/01/22 07:00 97.5 F L 83 12 03/01/22 02:06 97.6 F 81 14 03/01/22 01:36 88 16 02/28/22 23:13 92 16 02/28/22 21:01 90 18 02/28/22 20:35 98 F 97 18 BP BP BP BP BP BP Pulse Ox 03/01/22 11:37 153/83 97 03/01/22 11:25 125/77 107/71 158/85 03/01/22 07:00 176/81 98 03/01/22 02:06 150/76 98 03/01/22 01:36 141/78 98 02/28/22 23:13 168/83 97 02/28/22 21:01 179/80 97 02/28/22 20:35 141/74 96 Intake and Output 02/28/22 03/01/22 03/01/22 22:59 06:59 14:59 Intake Total 118 Balance 118 Intake: Oral 118 Other: # Voids 0 Weight 59.421 kg 59.421 kg - Constitutional General appearance: cooperative, no acute distress, thin - EENT Eyes: EOMI ENT: normal oropharynx - Neck Neck: normal ROM - Respiratory Respiratory: bilateral: CTA - Cardiovascular Heart rate: 80 Rhythm: regular Heart sounds: normal: S1, S2 radial pulse Peripheral Pulses: bilateral: Normal - Gastrointestinal General gastrointestinal: normal bowel sounds - Integumentary Integumentary: normal - Neurologic Neurologic: focal deficits - Musculoskeletal Musculoskeletal: left sided weakness - Psychiatric Psychiatric: A&O x's 3 Results CBC & Chem 7: 03/01/22 06:32 03/01/22 06:32 Labs: Abnormal Lab Results - Last 24 Hours (Table) 02/28/22 02/28/22 03/01/22 Range/Units 22:31 22:31 00:38 Sodium 128 L (137-145) mmol/L Chloride 95 L (98-107) mmol/L BUN 24 H (7-17) mg/dL Creatinine 1.27 H (0.52-1.04) mg/dL Glucose 599 H* (74-99) mg/dL POC Glucose (mg/dL) 234 H (75-99) mg/dL Urine Protein 2+ H (Negative) Urine Glucose (UA) 4+ H (Negative) Urine Blood Trace H (Negative) Urine Bacteria Rare H (None) /hpf 03/01/22 03/01/22 03/01/22 Range/Units 01:51 04:17 05:40 Sodium (137-145) mmol/L Chloride (98-107) mmol/L BUN (7-17) mg/dL Creatinine (0.52-1.04) mg/dL Glucose (74-99) mg/dL POC Glucose (mg/dL) 202 H 296 H 303 H (75-99) mg/dL Urine Protein (Negative) Urine Glucose (UA) (Negative) Urine Blood (Negative) Urine Bacteria (None) /hpf 03/01/22 03/01/22 03/01/22 Range/Units 06:32 08:02 09:58 Sodium 132 L (137-145) mmol/L Chloride (98-107) mmol/L BUN 22 H (7-17) mg/dL Creatinine (0.52-1.04) mg/dL Glucose 317 H (74-99) mg/dL POC Glucose (mg/dL) 357 H 310 H (75-99) mg/dL Urine Protein (Negative) Urine Glucose (UA) (Negative) Urine Blood (Negative) Urine Bacteria (None) /hpf 03/01/22 Range/Units 11:30 Sodium (137-145) mmol/L Chloride (98-107) mmol/L BUN (7-17) mg/dL Creatinine (0.52-1.04) mg/dL Glucose (74-99) mg/dL POC Glucose (mg/dL) 200 H (75-99) mg/dL Urine Protein (Negative) Urine Glucose (UA) (Negative) Urine Blood (Negative) Urine Bacteria (None) /hpf Chest x-ray: report reviewed CT Scan - head: report reviewed Thrombosis Risk Factor Assmnt - DVT/VTE Prophylaxis DVT/VTE Prophylaxis: Low risk, early ambulation encouraged - Choose All That Apply Each Factor Represents 1 point: Abnormal pulmonary function (COPD), Age 41-60 years Other Risk Factors: No Thrombosis Risk Factor Assessment Total Risk Factor Score: 2 Thrombosis Risk Factor Assessment Level: Low Risk Assessment and Plan Assessment: Facial droop, ruling out acute stroke Orthostatic hypotension Hyperglycemia, secondary to type 1 diabetes hypothyroidism, stable COPD, not in exacerbation GERD DDD of neck and lumbar spine Cigarette smoker Plan: Neurology consult for stroke symptoms and near syncope, awaiting CTA results Cardiology consult for near syncope, awaiting recommendations Insulin sliding scale adjusted for enhanced blood glucose control Continue IV fluids, orthostatic blood pressure [id number] Further recommendations to come based on patients clinical course. Time with Patient: Greater than 30
--- NOTE | 2022-03-01 13:23 | P.CNNES ---
History of Present Illness Consult date: 03/01/22 Requesting physician: Liane Diane Reason for Consult: syncope History of Present Illness: This is a 56-year-old woman with medical history of diabetes, peripheral neuropathy, hypothyroidism, hypertension, fibromyalgia, COPD who presents emergency department on 02/28/2022 for feeling light headedness. According to the patient she stated she felt light headed when she stood up for the past 2 weeks at least. But yesterday feels when she was resting. She denies of any diplopia, visual disturbance. Yesterday she noticed she had left facial weakness. She had 2 syncopal episodes after being started on Lisnopril in January of this year but denies any urinary or bowel incontinence or tongue bite. She denies history of seizure. Today according to the nurse around 11:25am she was found to be slurring speech, with ?right facial droop. Patient also felt left sided weakness. She has chronic neck pain. Today stroke code was activated as result. Patient is not on any antiplatelet but is on Crestor 20 mg daily. Patient smokes <1/2PPD. Some other workup in the hospital consisted of: Orthostatic vitals is supine is blood pressure of 158/85 with a heart rate of 81 sitting is blood pressure of 125/77 with a heart rate of 84 and standing is 107/71 with a heart rate of 95. Initial POC glucose is 303 this serum glucose As high as 357 during this hospital stay. TSH is 1.80. CT of the head is reported as hypodensity in the left internal capsule consistent with old lacunar infarct. No hemorrhage. I personally reviewed the CT of the head and I felt was more subacute over the subcortical left frontal/hector radiata. I called Dr. Dsouza and he reviewed images and felt indeterminate age. NIH stroke scale according to nurse is 9-->1 according to nurse. Patient did not receive IV TPA as since the patient's outside the window and the risk outweigh the benefit. Review of Systems Review of system: The 12 point system was reviewed and apparent positive and negative per HPI. Past Medical History Past Medical History: COPD, Diabetes Mellitus, Fibromyalgia, GERD/Reflux, Hypertension, Osteoarthritis (OA), Thyroid Disorder Additional Past Medical History / Comment(s): NEUROPATHY BILATERAL FEET, -DDD NECK AND LOWER BACK, hiatal hernia, no need for BP med anymore, hepatitis as a kid, fell & fx. left wrist 11-05-18-wearing splint History of Any Multi-Drug Resistant Organisms: MRSA Date of last positivie culture/infection: 05/2016 MDRO Source:: rt great toe Past Surgical History: Adenoidectomy, Back Surgery, Bladder Surgery, Hysterectomy, Orthopedic Surgery, Tonsillectomy, Tubal Ligation Additional Past Surgical History / Comment(s): Debridement R foot, PICC line/l ater removed, bladder suspension, exploratory laparotomy, rt great toe amputation, pins right feet, cataracts removed Past Anesthesia/Blood Transfusion Reactions: No Reported Reaction Additional Past Anesthesia/Blood Transfusion Reaction / Comment(s): . Past Psychological History: Anxiety Additional Psychological History / Comment(s): . Smoking Status: Current every day smoker Past Alcohol Use History: None Reported, Rare Additional Past Alcohol Use History / Comment(s): SMOKER SINCE PPD Past Drug Use History: None Reported - Past Family History Mother Family Medical History: No Reported History Additional Family Medical History / Comment(s): Mother has back problems. She is 73 yrs old. Father Additional Family Medical History / Comment(s): at 26yrs old--accident at work Medications and Allergies Home Medications Medication Instructions Recorded Confirmed Type Acetaminophen Tab [Tylenol] 2,000 mg PO DAILY 08/20/21 02/28/22 History Fluticasone/Umeclidin/Vilanter 1 puff INHALATION RT-DAILY 08/20/21 02/28/22 History [Trelegary Ellipta 100-62.5-25] Rosuvastatin [Crestor] 20 mg PO DAILY 08/20/21 02/28/22 History Clotrimazole Cream [Lotrimin Cream] 1 applic TOPICAL DAILY 02/02/22 02/28/22 History Fluticasone Nasal [place] [Flonase 1 spray EA NOSTRIL DAILY 02/02/22 02/28/22 History Nasal [place]] Insulin Glargine,Hum.rec.anlog 25 unit SQ DAILY 02/02/22 02/28/22 History [Lantus Solostar Pen] Levothyroxine Sodium [Synthroid] 175 mcg PO DAILY 02/02/22 02/28/22 History buPROPion XL [Wellbutrin XL] 150 mg PO DAILY 02/02/22 02/28/22 History traZODone HCL 50 mg PO HS 02/02/22 02/28/22 History Insulin Aspart [NovoLOG Flexpen] See Protocol SQ AC-TID 02/28/22 02/28/22 History Allergies Allergy/AdvReac Type Severity Reaction Status Date / Time Sulfa (Sulfonamide Allergy Rash/Hives Verified 02/28/22 22:54 Antibiotics) Physical Examination - Vital Signs Vital Signs: Vital Signs Temp Pulse Pulse Pulse Pulse Pulse Resp 03/01/22 11:37 98.0 F 81 14 03/01/22 11:25 84 95 81 03/01/22 07:00 97.5 F L 83 12 03/01/22 02:06 97.6 F 81 14 03/01/22 01:36 88 16 02/28/22 23:13 92 16 02/28/22 21:01 90 18 02/28/22 20:35 98 F 97 18 BP BP BP BP BP BP Pulse Ox 03/01/22 11:37 153/83 97 03/01/22 11:25 125/77 107/71 158/85 03/01/22 07:00 176/81 98 03/01/22 02:06 150/76 98 03/01/22 01:36 141/78 98 02/28/22 23:13 168/83 97 02/28/22 21:01 179/80 97 02/28/22 20:35 141/74 96 Intake and Output 02/28/22 03/01/22 03/01/22 22:59 06:59 14:59 Intake Total 118 Balance 118 Intake: Oral 118 Other: # Voids 0 Weight 59.421 kg 59.421 kg GENERAL: The patient is lying in bed and is not in acute distress. CHEST: The heart rate is regular rate rhythm. No murmurs to auscultation. LUNG: Clear to auscultation bilaterally no wheezing noted throughout. Not labored breathing. ABDOMEN/GI: Bowel sounds present in all 4 quadrants. No tenderness to palpation throughout. NEUROLOGICAL: Higher mental function: The patient is awake, alert, oriented to self, place and time. Patient is following commands. No aphasia and no neglect. Cranial nerves: The pupils are round, equal and reactive to light and accommodation. Visual rosario are full to confrontation throughout. Extraocular movement is intact no nystagmus is noted. Facial sensation is normal to touch throughout. The facial strength is left nasolabial flattening. Hearing is normal bilaterally to hand rub. Tongue is midline and moved [id number] without any difficulty. No dysarthria is noted. Shoulder shrug is normal bilaterally. Motor: Gait is deferred. The strength is left upper extremity is 4+ to 5- and hand steward racetrack are 5/5. Otherwise 5 over 5 throughout. Normal tone and bulk. Cerebellum: Normal finger to nose bilaterally. Sensation: Sensation is normal to touch throughout. Reflexes (right/left): 1+ throughout. Plantars are mute bilaterally. Results - Laboratory Findings CBC and BMP: 03/01/22 06:32 03/01/22 06:32 Abnormal Lab Findings: Abnormal Labs 02/28/22 02/28/22 03/01/22 22:31 22:31 00:38 Sodium 128 L Chloride 95 L BUN 24 H Creatinine 1.27 H Glucose 599 H* POC Glucose (mg/dL) 234 H Urine Protein 2+ H Urine Glucose (UA) 4+ H Urine Blood Trace H Urine Bacteria Rare H 03/01/22 03/01/22 03/01/22 01:51 04:17 05:40 Sodium Chloride BUN Creatinine Glucose POC Glucose (mg/dL) 202 H 296 H 303 H Urine Protein Urine Glucose (UA) Urine Blood Urine Bacteria 03/01/22 03/01/22 03/01/22 06:32 08:02 09:58 Sodium 132 L Chloride BUN 22 H Creatinine Glucose 317 H POC Glucose (mg/dL) 357 H 310 H Urine Protein Urine Glucose (UA) Urine Blood Urine Bacteria 03/01/22 11:30 Sodium Chloride BUN Creatinine Glucose POC Glucose (mg/dL) 200 H Urine Protein Urine Glucose (UA) Urine Blood Urine Bacteria Assessment and Plan Assessment: Acute transient left facial droop, dysarthria but continues to have some left upper extremity weakness. Seems likely acute ischemic stroke. Patient dizziness due to positive orthostatic hypotension Syncopal episode: Does not appear seizure. Possible due to orthostatic vs hypoglycemic events. Uncontrolled diabetes mellitus (in our facility sugar in 300's) and stated at time have few episodes of sugar in 20's. Chronic neck pain Peripheral neuropathy Hypothyroidism Tobacco use Plan: The primary team ordered a repeat CT of the head and CT angiography of the head and neck. I ordered MRI of the brain CT of the head is reported as hypodensity in the left internal capsule consistent with old lacunar infarct. No hemorrhage. I called Dr. Dsouza and he reviewed images and felt indeterminate age. I started the patient on aspirin 325mg. Continue Lipitor 40 mg daily. I'll not start the patient on dual antiplatelets until we get the MRI results. 2-D echo was ordered by the primary team is pending I ordered lipid panel, hemoglobin A1c Consulted the PT OT and ENVIRONMENTAL SAFETY SPECIALIST Every 4 hours neuro checks Placed on cardiac monitoring For two prior syncopal episodes. Does not appear seizures. Ordered routine EEG. I will not start the patient on antiepileptic drug unless there is epileptiform discharges or seizure on the EEG. Cardiology team is consulted. Patient is counseled on tobacco cessation for 3 minutes. For the orthostatic hypotension recommend that compression socks initially and and we'll defer the rest of the management to cardiology team. We'll defer the rest of the medical management to primary team For DVT prophylaxis: Started on subq heparin 5000U every 8 hours. The plan is discussed with patient and her nurse. Thank you for the consultation Arnold Dooley M.D. Neuro-Hospitalist Time with Patient: Greater than 30
[2022-03-01 14:06] LABS: Glucose,Whole Blood 38 mg/dL (75-99)
[2022-03-01 14:22] LABS: Glucose,Whole Blood 89 mg/dL (75-99)
--- NOTE | 2022-03-01 14:30 | P.CRDCN ---
History of Present Illness History of present illness: HISTORY OF PRESENTING ILLNESS This is a pleasant 56-year-old female past medical history significant for type 2 diabetes, COPD, hypertension, hypothyroidism, chronic nicotine dependence, family history of CAD . She does not follow with a card boxer. We have been asked to see in consultation for syncope. Patient presents with complaints of lightheadedness. She states yesterday she was walking into her friends house and had increased lightheadedness, she felt unstable on her feet, she felt as if she may pass out. She states her blood sugars were reading high at home. She was taking her insulin as prescribed. She denies any chest pain, palpitations, loss of consciousness. She does occasionally get shortness of breath with exertion. She is a current every day smoker, smokes 1/2 PPD. Family history includes, sister had an UT and 4 stents placed in her early 60s. She denies any recent cardiac workup, states she had a normal stress test 20 years ago. She states she was started on Lisinopril 10mg once a day a few months ago. She states she had 2 syncopal episodes while standing after starting Lisinopril, it was decreased to 5mg daily and continued to have lightheadedness and syncope. On admission patient found to have a blood sugar of 599. Acute kidney injury. Sodium 128. B lood pressure also elevated SBP 170s. DIAGNOSTICS -EKG reveals sinus rhythm, heart rate 88, T wave inversion in lead aVL, poor R wave progression,no acute ischemia noted. Prior EKG in 01/2022 with similar findings. -Telemetry tracings indicate sinus mechanism, heart rate in the 60s80s. -Brain CT revealed hypodensity in the left internal capsule consistent with old lacunar infarct. No hemorrhage. -Chest xray no acute cardiopulmonary process -Laboratory reviewed, CBC unremarkable, sodium 132, potassium 4.9, BUN 22, serum, and 0.9, glucose 317, troponin negative -Current home medications include trazodone, rosuvastatin 20 mg daily, Wellbutrin and, insulin, Synthroid REVIEW OF SYSTEMS CONSTITUTIONAL: Denies fever or chills. +lightheadedness. CARDIOVASCULAR: Denies chest pain, shortness of breath, orthopnea, PND or palpitations. RESPIRATORY: Denies cough. GASTROINTESTINAL: Denies abdominal pain, diarrhea, constipation, nausea or vomiting. MUSCULOSKELETAL: Denies myalgias. NEUROLOGIC: Denies numbness, tingling, headache or weakness. ENDOCRINE: Denies fatigue, weight change, polydipsia or polyurina. GENITOURINARY: Denies burning, hematuria or urgency with micturation. HEMATOLOGIC: Denies history of anemia or bleeding. PHYSICAL EXAMINATION Blood pressure 176/81, heart rate 83, afebrile, saturations 98% room air CONSTITUTIONAL: No apparent distress. HEENT: Head is normocephalic. Pupils are equal, round. Sclerae anicteric. Mucous membranes of the mouth are moist. No JVD. No carotid bruit. CHEST EXAMINATION: Lungs are diminished bases to auscultation. No chest wall tenderness is noted on palpation or with deep breathing. HEART EXAMINATION: Regular rate and rhythm. S1, S2 heard. No murmurs, gallops or rub. ABDOMEN: Soft, nontender. Positive bowel sounds. EXTREMITIES: 2+ peripheral pulses, no lower extremity edema and no calf tenderness. NEUROLOGIC EXAMINATION: Patient is awake, alert and oriented x3. ASSESSMENT Lightheadedness, Pre-syncope Dysautonomia Hyperglycemia Orthostatic hypotension Acute kidney injury, improved Hyponatremia, improved Hypertension Hypothyroidism Type 2 Diabetes Chronic nicotine dependence Family history of CAD Old lacunar infarct seen on CT brain PLAN Obtain 2D echocardiogram and doppler study to assess cardiac structure and func tion. Start lisinopril 2.5mg nightly Consider midodrine for daytime only Recheck orthostatics in the morning Recheck lipid panel Continue cardiac telemetry Continue statin, aspirin. Smoking cessation discussed and highly recommended. Further recommendations based on clinical course Nurse practitioner note has been reviewed by physician. Signing provider agrees with the documented findings, assessment, and plan of care. Past Medical History Past Medical History: COPD, Diabetes Mellitus, Fibromyalgia, GERD/Reflux, Hypertension, Osteoarthritis (OA), Thyroid Disorder Additional Past Medical History / Comment(s): NEUROPATHY BILATERAL FEET, -DDD NECK AND LOWER BACK, hiatal hernia, no need for BP med anymore, hepatitis as a kid, fell & fx. left wrist 11-05-18-wearing splint History of Any Multi-Drug Resistant Organisms: MRSA Date of last positivie culture/infection: 05/2016 MDRO Source:: rt great toe Past Surgical History: Adenoidectomy, Back Surgery, Bladder Surgery, Hysterectomy, Orthopedic Surgery, Tonsillectomy, Tubal Ligation Additional Past Surgical History / Comment(s): Debridement R foot, PICC line/later removed, bladder suspension, exploratory laparotomy, rt great toe amputation, pins right feet, cataracts removed Past Anesthesia/Blood Transfusion Reactions: No Reported Reaction Additional Past Anesthesia/Blood Transfusion Reaction / Comment(s): . Past Psychological History: Anxiety Additional Psychological History / Comment(s): . Smoking Status: Current every day smoker Past Alcohol Use History: None Reported, Rare Additional Past Alcohol Use History / Comment(s): SMOKER SINCE PPD Past Drug Use History: None Reported - Past Family History Mother Family Medical History: No Reported History Additional Family Medical History / Comment(s): Mother has back problems. She is 73 yrs old. Father Additional Family Medical History / Comment(s): at 26yrs old--accident at work Medications and Allergies Home Medications Medication Instructions Recorded Confirmed Type Acetaminophen Tab [Tylenol] 2,000 mg PO DAILY 08/20/21 02/28/22 History Fluticasone/Umeclidin/Vilanter 1 puff INHALATION RT-DAILY 08/20/21 02/28/22 History [Trelegy Ellipta 100-62.5-25] Rosuvastatin [Crestor] 20 mg PO DAILY 08/20/21 02/28/22 History Clotrimazole Cream [Lotrimin Cream] 1 applic TOPICAL DAILY 02/02/22 02/28/22 History Fluticasone Nasal Marianna [Flonase 1 spray EA NOSTRIL DAILY 02/02/22 02/28/22 Hi story Nasal Marianna] Insulin Glargine,Hum.rec.anlog 25 unit SQ DAILY 02/02/22 02/28/22 History [Lantus Solostar Pen] Levothyroxine Sodium [Synthroid] 175 mcg PO DAILY 02/02/22 02/28/22 History buPROPion XL [Wellbutrin XL] 150 mg PO DAILY 02/02/22 02/28/22 History traZODone HCL 50 mg PO HS 02/02/22 02/28/22 History Insulin Aspart [NovoLOG Flexpen] See Protocol SQ AC-TID 02/28/22 02/28/22 History Allergies Allergy/AdvReac Type Severity Reaction Status Date / Time Sulfa (Sulfonamide Allergy Rash/Hives Verified 02/28/22 22:54 Antibiotics) Physical Exam Vitals: Vital Signs Temp Pulse Pulse Resp BP BP BP 03/01/22 07:00 97.5 F L 83 12 176/81 03/01/22 02:06 97.6 F 81 14 150/76 03/01/22 01:36 88 16 141/78 02/28/22 23:13 92 16 168/83 02/28/22 21:01 90 18 179/80 02/28/22 20:35 98 F 97 18 141/74 Pulse Ox 03/01/22 07:00 98 03/01/22 02:06 98 03/01/22 01:36 98 02/28/22 23:13 97 02/28/22 21:01 97 02/28/22 20:35 96 Intake and Output 02/28/22 03/01/22 03/01/22 22:59 06:59 14:59 Intake Total 118 Balance 118 Intake: Oral 118 Other: # Voids 0 Weight 59.421 kg 59.421 kg Results 03/01/22 06:32 03/01/22 06:32 Cardiac Enzymes 02/28/22 02/28/22 Range/Units 22:31 22:31 AST 17 (14-36) U/L Troponin I <0.012 (0.000-0.034) ng/mL Coagulation 02/28/22 Range/Units 22:31 PT 9.9 (9.0-12.0) sec CBC 02/28/22 03/01/22 Range/Units 22:31 06:32 WBC 6.6 7.0 (3.8-10.6) k/uL RBC 4.04 4.04 (3.80-5.40) m/uL Hgb 12.2 12.3 (11.4-16.0) gm/dL Hct 38.1 37.8 (34.0-46.0) % Plt Count 317 300 (150-450) k/uL Comprehensive Metabolic Panel 02/28/22 03/01/22 Range/Units 22:31 06:32 Sodium 128 L 132 L (137-145) mmol/L Potassium 4.6 4.9 (3.5-5.1) mmol/L Chloride 95 L 104 (98-107) mmol/L Carbon Dioxide 28 23 (22-30) mmol/L BUN 24 H 22 H (7-17) mg/dL Creatinine 1.27 H 0.98 (0.52-1.04) mg/dL Glucose 599 H* 317 H (74-99) mg/dL Calcium 9.1 8.8 (8.4-10.2) mg/dL AST 17 (14-36) U/L ALT 16 (4-34) U/L Alkaline Phosphatase 71 (38-126) U/L Total Protein 6.5 (6.3-8.2) g/dL Albumin 3.6 (3.5-5.0) g/dL Current Medications Generic Name Dose Route Start Last Admin Trade Name Freq PRN Reason Stop Dose Admin Atorvastatin Calcium 40 mg 03/01/22 09:00 03/01/22 08:09 Atorvastatin 40 Mg Tab PO Not Given DAILY LYNDSAY Budesonide/Formoterol Fumarate 2 puff 03/01/22 08:00 03/01/22 08:01 Symbicort 80-4.5 Mcg Inhaler INHALATION Not Given RT-BID LYNDSAY Bupropion HCl 150 mg 03/01/22 09:00 03/01/22 08:54 Bupropion Xl 150 Mg Tab.Er.24h PO Not Given DAILY LYNDSAY Fluticasone Propionate 1 spray 03/01/22 09:00 03/01/22 08:07 Fluticasone 50mcg/Marianna Nasal 16gm EA NOSTRIL 1 spray DAILY LYNDSAY Administration Sodium Chloride 1,000 mls @ 75 mls/hr 02/28/22 23:45 03/01/22 00:33 Saline 0.9% IV 75 mls/hr .[id number] LYNDSAY Administration Insulin Aspart 0 unit 03/01/22 12:30 Insulin Aspart (Novolog) 100 Unit/Ml Vial SQ ACHS [facility] Protocol Insulin Detemir 25 unit 03/01/22 09:00 03/01/22 08:53 Insulin Detemir (Levemir) 100 Unit/Ml Syr SQ 25 unit DAILY LYNDSAY Administration Ipratropium [place] 0.5 mg 03/01/22 08:00 03/01/22 08:01 Ipratropium 0.5 Mg/2.5 Ml Nebu INHALATION Not Given RT-QID LYNDSAY Levothyroxine Sodium 176 mcg 03/01/22 06:30 03/01/22 05:42 Levothyroxine 88 Mcg Tab PO 176 mcg DAILY@0630 LYNDSAY Administration Naloxone HCl 0.2 mg 02/28/22 23:42 Naloxone 0.4 Mg/Ml 1 Ml Vial IV Q2M PRN Opioid Reversal Trazodone HCl 50 mg 03/01/22 21:00 Trazodone Hcl 50 Mg Tab PO HS LYNDSAY Intake and Output 02/28/22 03/01/22 03/01/22 22:59 06:59 14:59 Intake Total 118 Balance 118 Intake: Oral 118 Other: # Voids 0 Weight 59.421 kg 59.421 kg 03/01/22 06:32 03/01/22 06:32
[2022-03-01 16:04] LABS: Glucose,Whole Blood 97 mg/dL (75-99)
[2022-03-01 16:54] LABS: Glucose,Whole Blood 102 mg/dL (75-99)
[2022-03-01] MEDS: HEPARIN SODIUM,PORCINE/PF 5,000 UNIT/0.5 ML SYRINGE SQ SCH (17:15)
--- NOTE | 2022-03-01 19:08 | CA ---
Transthoracic Echo Report Name: Mila Camilo Age: 56 Gender: F : 1965 Exam Date: 03/01/2022 10:46 Exam Location: [place] Echo Ht (in): 68 Wt (lb): 131 Ordering Physician: Liane Diane [facility] Attending/Referring Phys: Consumer Loan Processor Shruthi Martel RDCS Procedure CPT: Indications: Syncope Cardiac Hx: Technical Quality: Good Contrast 1: N/A Total Dose (mL): Contrast 2: Total Dose (mL): MEASUREMENTS (Male / Female) Normal Values 2D ECHO LV Diastolic Diameter PLAX 4.2 cm 4.2 - 5.9 / 3.9 - 5.3 cm LV Systolic Diameter PLAX 2.9 cm IVS Diastolic Thickness 1.1 cm 0.6 - 1.0 / 0.6 - 0.9 cm LVPW Diastolic Thickness 0.8 cm 0.6 - 1.0 / 0.6 - 0.9 cm LV Relative Wall Thickness 0.4 RV Internal Dim ED PLAX 3.0 cm LA Systolic Diameter LX 3.5 cm 3.0 - 4.0 / 2.7 - 3.8 cm LA Volume 35.5 cm??? 18 - 58 / 22 - 52 cm??? M-MODE Aortic Root Diameter MM 2.9 cm LA Systolic Diameter MM 3.5 cm LA Ao Ratio MM 1.2 MV E Point Septal Separation 1.1 cm AV Cusp Separation MM 2.0 cm DOPPLER MV Area PHT 3.1 cm??? Mitral E Point Velocity 45.4 cm/s Mitral A Point Velocity 73.4 cm/s Mitral E to A Ratio 0.6 MV Deceleration Time 246.7 ms MV E' Velocity 4.0 cm/s Mitral E to MV E' Ratio 11.4 TR Peak Velocity 199.1 cm/s TR Peak Gradient 15.9 mmHg Right Ventricular Systolic Press 20.9 mmHg FINDINGS Left Ventricle Left ventricular ejection fraction is estimated at 50-55 %. Mildly increased left ventricular wall thickness. Right Ventricle Normal right ventricular size and function. Right Atrium Normal right atrial size. Left Atrium Normal left atrial size. Mitral Valve Mild mitral regurgitation. Aortic Valve Trileaflet aortic valve. Tricuspid Valve Mild tricuspid regurgitation. Pulmonic Valve Structurally normal pulmonic valve. Pericardium Normal pericardium. Aorta Normal size aortic root and proximal ascending aorta. CONCLUSIONS Mild left ventricular hypertrophy with preserved LV and RV size and function No significant valvular abnormalities either Previewed by: Dr. Jt Saunders MD (Electronically Signed) Final Date: 01 Mar 2022 19:07
[2022-03-01 19:38] LABS: Glucose,Whole Blood 195 mg/dL (75-99)
[2022-03-01] MEDS: traZODone HCL 50 MG TAB PO SCH (20:56)
[2022-03-02] MEDS: HEPARIN SODIUM,PORCINE/PF 5,000 UNIT/0.5 ML SYRINGE SQ SCH ×4 (00:48→23:45)
[2022-03-02 01:47] LABS: Glucose,Whole Blood 226 mg/dL (75-99)
[2022-03-02 05:31] LABS: Glucose,Whole Blood 363 mg/dL (75-99)
[2022-03-02 06:10] LABS: Chol/HDL Ratio 2.88 Ratio; LDL Cholesterol,Calculated 79.3 mg/dL (0.0-131.0)
[2022-03-02] MEDS: LEVOTHYROXINE 88 MCG TAB PO SCH (06:31)
[2022-03-02] MEDS: INSULIN ASPART (NovoLOG) 100 UNIT/ML VIAL SQ SCH ×4 (06:32→20:12)
[2022-03-02] MEDS: SODIUM CHLORIDE 0.9% 1,000 ML IV SCH ×2 (08:03→15:44)
[2022-03-02] MEDS ORDERED: ACETAMINOPHEN TAB 325 MG TAB ONE (09:00)
[2022-03-02] MEDS ORDERED: HEPARIN SODIUM,PORCINE 5,000 UNIT/ML 1 ML VIAL ONE (09:00)
[2022-03-02] MEDS ORDERED: IPRATROPIUM 0.5 MG/2.5 ML NEBU INHALATION ONE (09:00)
[2022-03-02] MEDS: SYMBICORT 80-4.5 MCG INHALER INHALATION SCH ×2 (09:15→21:40)
[2022-03-02] MEDS: IPRATROPIUM 0.5 MG/2.5 ML NEBU INHALATION SCH ×4 (09:15→21:40)
[2022-03-02] MEDS: FLUTICASONE 50MCG/SPRAY NASAL 16GM EA NOSTRIL SCH (09:17)
[2022-03-02] MEDS: ASPIRIN 325 MG TAB PO SCH (09:21)
[2022-03-02] MEDS: INSULIN DETEMIR (LEVEMIR) 100 UNIT/ML SYR SQ SCH (09:22)
[2022-03-02] MEDS: ATORVASTATIN 40 MG TAB PO SCH (09:22)
[2022-03-02] MEDS: ONDANSETRON 4 MG/2 ML VIAL IVP PRN ×2 (09:25→18:01)
--- NOTE | 2022-03-02 10:58 | MR ---
"EXAMINATION TYPE: MR brain wo con DATE OF EXAM: 03/02/2022 COMPARISON: CT brain from yesterday and 2 days ago. HISTORY: Stroke: right facial droop TECHNIQUE: Multiplanar, multisequence imaging of the brain and brainstem is performed without IV cont rast. FINDINGS: Diffusion weighted images demonstrate an oval 11 by 9 mm area of increased signal on diffusion weight ed images with diminished signal on ADC mapping involving the right upper to mid bassam that shows T1 h ypointensity and T2 hyperintensity measuring roughly 8 mm craniocaudal dimension axial image 10 serie s 401 and 501 and sagittal image 16 consistent with evolving acute infarct. Mild ventricular and sulcal prominence is redemonstrated. Scattered and focal confluent areas of T2 h yperintensity throughout the white matter bilaterally are again seen greatest over the deep left fron iris hemisphere periventricular region involving the hector radiata axial image 19. Midline structures demonstrate normal morphology. The craniocervical junction appears within normal limits. Normal vascular flow voids are present. The visualized sinuses are clear and the globes are i ntact. Increased fluid signal left mastoid air cells is now present. IMPRESSION: 1. Evolving 1.1 cm right mid pontine acute infarct. 2. Background mild diffuse cerebral atrophy and moderate chronic small vessel ischemic change. 3. New fluid signal left mastoid air cells raises concern for mastoiditis, correlate clinically. A Yellow level critical message alert has been initiated for Isaiah Hadley MD via the [employer] 36 0 | Critical Results System on 03/02/2022 10:55 AM. This message alert has been sent to Isaiah Hadley MD via the preferences provided by the clinician for the receipt of Radiology Critical Findings. [facility] [id number]."
[2022-03-02 11:38] LABS: Glucose,Whole Blood 120 mg/dL (75-99)
[2022-03-02] MEDS: CLOPIDOGREL 75 MG TAB PO SCH (12:58)
[2022-03-02] MEDS: buPROPion XL 150 MG TAB.ER.24H PO SCH (12:59)
--- NOTE | 2022-03-02 14:34 | P.PN ---
Subjective Progress Note Date: 03/02/22 Principal diagnosis: dizziness Patient is a very pleasant 56 year old female that presented to the emergency room last night with dizziness and near syncope. Patient was seen in the office last week for similar symptoms, and was referred to the emergency room, was unable to go due to family trouble. She reported dizziness with position changes, headaches, and feeling foggy. Patient has a pertinent medical history of type 1 diabetes, COPD, fibromyalgia, Hypertension, hyperlipidemia, OA, hypothyroidism, neuropathy, left wrist fracture, current smoker. Chest xray was negative, brain ct showed old lacunar infarct on left side. Orthostatic blood pressure were grossly positive in the emergency room. Neurology and cardiology were consulted for evaluation of syncope. This morning on exam, patient was noted to have slurred speech and left sided facial droop. Code stroke was called and CTA of head and neck was obtained, awaiting results and neurology recommendations. 03/02/2022 Patient was seen and assessed at bedside. Reports nausea as well as continued dizziness, left sided weakness and difficulty with speech. MRI shows evolving right acute infarct. following with neurology recommendations. Continue frequent neuro exams and cardiac monitoring. Objective - Vital Signs Vital signs: Vital Signs Temp 98.2 F 03/02/22 08:00 Pulse 77 03/02/22 08:00 Resp 18 03/02/22 08:00 BP 135/77 03/02/22 08:00 Pulse Ox 94 L 03/02/22 08:00 FiO2 Intake & Output 03/01/22 03/02/22 03/02/22 18:59 06:59 18:59 Intake Total 898 660 Balance 898 660 Intake: Intake, IV Titration 300 Amount Sodium Chloride 0.9% 1, 300 000 ml @ 75 mls/hr IV . [id number] [facility] Rx#:[id number] Oral 898 360 Other: Voiding Method Toilet Toilet # Voids 3 2 - Constitutional General appearance: Present: cooperative, no acute distress - EENT Eyes: Present: EOMI ENT: Present: normal oropharynx - Neck Neck: Present: normal ROM - Respiratory Respiratory: bilateral: CTA - Cardiovascular Heart rate: 70 Rhythm: regular Heart sounds: normal: S1, S2 - Gastrointestinal General gastrointestinal: Present: normal bowel sounds, soft - Integumentary Integumentary: Present: normal - Neurologic Neurologic: Present: focal deficits - Musculoskeletal Musculoskeletal: Present: left sided weakness - Psychiatric Psychiatric: Present: A&O x's 3 - Allied health notes Allied health notes reviewed: nursing - Labs CBC & Chem 7: 03/01/22 06:32 03/01/22 06:32 Labs: Abnormal Lab Results - Last 24 Hours (Table) 03/01/22 03/01/22 03/01/22 Range/Units 06:32 06:32 14:05 POC Glucose (mg/dL) 38 L (75-99) mg/dL Hemoglobin A1c 8.7 H (0.0-6.0) % Triglycerides 175.00 H (0.00-149.00) mg/dL HDL Cholesterol 60.70 H (40.00-60.00) mg/dL 03/01/22 03/01/22 03/02/22 Range/Units 16:52 19:37 01:44 POC Glucose (mg/dL) 102 H 195 H 226 H (75-99) mg/dL Hemoglobin A1c (0.0-6.0) % Triglycerides (0.00-149.00) mg/dL HDL Cholesterol (40.00-60.00) mg/dL 03/02/22 03/02/22 Range/Units 05:29 11:36 POC Glucose (mg/dL) 363 H 120 H (75-99) mg/dL Hemoglobin A1c (0.0-6.0) % Triglycerides (0.00-149.00) mg/dL HDL Cholesterol (40.00-60.00) mg/dL - Imaging and Cardiology MRI - head: report reviewed Assessment and Plan Assessment: Acute stroke Orthostatic hypotension Hyperglycemia, secondary to type 1 diabetes hypothyroidism, stable COPD, not in exacerbation GERD DDD of neck and lumbar spine Cigarette smoker Plan: Neurology consult for stroke and near syncope, MRI shows evolving stroke Cardiology consult for near syncope, awaiting recommendations Insulin sliding scale adjusted for enhanced blood glucose control Continue IV fluids, orthostatic blood pressure [id number] Further recommendations to come based on patients clinical course. Time with Patient: Greater than 30
--- NOTE | 2022-03-02 14:39 | P.PN ---
Subjective Progress Note Date: 03/02/22 The patient is seen at bedside and feels fatigue and generalized weakness. Otherwise feels about the same as yesterday. MRI Brain: Evolving 1.1cm mid pontine acute infarct. Objective - Vital Signs Vital signs: Vital Signs Temp 98.2 F 03/02/22 08:00 Pulse 77 03/02/22 08:00 Resp 18 03/02/22 08:00 BP 135/77 03/02/22 08:00 Pulse Ox 94 L 03/02/22 08:00 FiO2 Intake & Output 03/01/22 03/02/22 03/02/22 18:59 06:59 18:59 Intake Total 898 660 Balance 898 660 Intake: Intake, IV Titration 300 Amount Sodium Chloride 0.9% 1, 300 000 ml @ 75 mls/hr IV . [id number] LYNDSAY Rx#:[id number] Oral 898 360 Other: Voiding Method Toilet Toilet # Voids 3 2 - Exam GENERAL: The patient is lying in bed and is not in acute distress. NEUROLOGICAL: Higher mental function: The patient is awake, alert, oriented to self, place and time. Patient is following commands. No aphasia and no neglect. Cranial nerves: The pupils are round, equal and reactive to light and accommodation. Visual rosario are full to confrontation throughout. Extraocular movement is intact no nystagmus is noted. Facial sensation is normal to touch throughout. The facial strength is left nasolabial flattening. Hearing is n ormal bilaterally to hand rub. Tongue is midline and moved [id number] without any difficulty. No dysarthria is noted. Shoulder shrug is normal bilaterally. Motor: Gait is deferred. The strength is left upper and lower extremity is 4+. Otherwise 5 over 5 throughout. Normal tone and bulk. Cerebellum: Mild dysmetria with finger and heel to martinez on left. Normal on right. Sensation: Sensation is normal to touch throughout. Reflexes (right/left): 1+ throughout. Plantars are mute bilaterally. SOME OF THE WORK-UP: Lipid Panel: TG 175, Cholestrol 175, LDL 79, HDL 60 TSH: 1.80 HbA1c: 8.7 CT of the head is reported as hypodensity in the left internal capsule consistent with old lacunar infarct. No hemorrhage. I personally reviewed the CT of the head and I felt was more subacute over the subcortical left frontal/hector radiata. I called Dr. Dsouza and he reviewed images and felt indeterminate age. CTA head and neck is reported as negative. MRI Brain: Evolving 1.1cm right mid pontine acute infarct. I personally reviewed the MRI and agree with the report. 2-D echo was reported as mild left ventricular hypertrophy with preserved left ventricular and right ventricular size and function. No significant valvular abnormality. Normal left atrial size. - Labs CBC & Chem 7: 03/01/22 06:32 03/01/22 06:32 Labs: Abnormal Lab Results - Last 24 Hours (Table) 03/01/22 03/01/22 03/01/22 Range/Units 06:32 06:32 16:52 POC Glucose (mg/dL) 102 H (75-99) mg/dL Hemoglobin A1c 8.7 H (0.0-6.0) % Triglycerides 175.00 H (0.00-149.00) mg/dL HDL Cholesterol 60.70 H (40.00-60.00) mg/dL 03/01/22 03/02/22 03/02/22 Range/Units 19:37 01:44 05:29 POC Glucose (mg/dL) 195 H 226 H 363 H (75-99) mg/dL Hemoglobin A1c (0.0-6.0) % Triglycerides (0.00-149.00) mg/dL HDL Cholesterol (40.00-60.00) mg/dL 03/02/22 Range/Units 11:36 POC Glucose (mg/dL) 120 H (75-99) mg/dL Hemoglobin A1c (0.0-6.0) % Triglycerides (0.00-149.00) mg/dL HDL Cholesterol (40.00-60.00) mg/dL Assessment and Plan Assessment: * Acute ischemic stroke (right mid-medial bassam). On examination has left facial droop and left sided weakness. Unknown exact cause but could be due to small vessel disease due to her risk factors (DM, tobacco use). No IV tpa since outside window and risk outweigh benefit. * Patient dizziness due to positive orthostatic hypotension and component due ot above. * Syncopal episode: Does not appear seizure. Possible due to orthostatic vs hypoglycemic events. * Uncontrolled diabetes mellitus HbA1c: 8.7 * Chronic neck pain * Peripheral neuropathy * Hypothyroidism * Tobacco use Plan: The patient is started on ASA 325mg daily (started yesterday) in addition started Plavix 75mg daily. Patient to be on dual antiplatelets for 21 and after that stop Plavix but continue ASA. Continue Lipitor 40 mg daily. If patient condition detoriate reactivate stroke pager and since this is brainstem stroke if any worsening of her condition can transfer to our ICU for closer neurological monitoring. Consulted the PT OT and PAYROLL TAX ANALYST Every 4 hours neuro checks. Continue on cardiac monitoring Consider [place] as outpatient and consider event monitor for 30 days. For two prior syncopal episodes. Does not appear seizures. Ordered routine EEG. I will not start the patient on antiepileptic drug unless there is epileptiform discharges or seizure on the EEG. Cardiology team is consulted. For the orthostatic hypotension recommend that compression socks initially and and we'll defer the rest of the management to cardiology team. We'll defer the rest of the medical management to primary team For DVT prophylaxis: On subq heparin 5000U every 8 hours. The plan is discussed with patient and her nurse. Arnold Dooley M.D. Neuro-Hospitalist Time with Patient: Less than 30
--- NOTE | 2022-03-02 15:35 | EEG ---
ELECTROENCEPHALOGRAM REPORT DATE OF SERVICE: 03/02/2022. CLINICAL HISTORY: This is a 56-year-old woman with reported syncopal episodes at home. The video EEG is obtained to evaluate for seizure epileptiform activity. RELEVANT MEDICATION: The patient is not on any antiepileptic drugs. EEG TYPE: A routine 21-channel EEG is performed with video using the 10/20 electrode placement system. DESCRIPTION: Only wakefulness is obtained. During awake state, the posterior-dominant rhythm consists of low to moderate voltage of 9.5 to 10.5 hertz activity that is well modulated and well sustained. There is no physiological stage II sleep architecture. There is no focal slowing. Interictal and ictal is none. ACTIVATION PROCEDURE: Photic stimulation did not evoke a posterior driving response. There is no abnormality during the photic stimulation. Hyperventilation is not performed. CLINICAL INTERPRETATION: This is a normal routine EEG. There is no focal slowing, epileptiform discharge or seizure on the EEG. Clinical correlation is recommended. JIMBO / SLICK: [id number] / [id number]
--- NOTE | 2022-03-02 16:25 | P.PN ---
Subjective Progress Note Date: 03/02/22 STORY OF PRESENTING ILLNESS This is a pleasant 56-year-old female past medical history significant for type 2 diabetes, COPD, hypertension, hypothyroidism, chronic nicotine dependence, family history of CAD . She does not follow with a chiropractic doctor. We have been asked to see in consultation for syncope. Patient presents with complaints of lightheadedness. She states yesterday she was walking into her friends house and had increased lightheadedness, she felt unstable on her feet, she felt as if she may pass out. She states her blood sugars were reading high at home. She was taking her insulin as prescribed. She denies any chest pain, palpitations, loss of consciousness. She does occasionally get shortness of breath with exertion. She is a current every day smoker, smokes 1/2 PPD. Family history includes, sister had an [place] and 4 stents placed in her early 60s. She denies any recent cardiac workup, states she had a normal stress test 20 years ago. She states she was started on Lisinopril 10mg once a day a few months ago. She states she had 2 syncopal episodes while standing after starting Lisinopril, it was decreased to 5mg daily and continued to have lightheadedness and syncope. On admission patient found to have a blood sugar of 599. Acute kidney injury. Sodium 128. Blood pressure also elevated SBP 170s. After admission to the hospital. Patient developed facial droop and weakness suggestive of CVA. Patient had an MRI which is sized to a small brainstem CVA. It was felt that it may be related to small vessel disease. Being followed by neurology. Neurology is requesting a outpatient [place] and also 30 day event monitor. Patient is still complaining of being dizzy and not feeling well. No complaint of chest pain or palpitations. No arrhythmias noted. Patient is also is documented to have postural hypotension and she is advised to wear knee-high stockings Objective - Vital Signs Vital signs: Vital Signs Temp 98.3 F 03/02/22 15:43 Pulse 72 03/02/22 15:43 Resp 18 03/02/22 15:43 BP 131/76 03/02/22 15:43 Pulse Ox 95 03/02/22 15:43 FiO2 Intake & Output 03/01/22 03/02/22 03/02/22 18:59 06:59 18:59 Intake Total 898 660 Balance 898 660 Intake: Intake, IV Titration 300 Amount Sodium Chloride 0.9% 1, 300 000 ml @ 75 mls/hr IV . [id number] [facility] Rx#:[id number] Oral 898 360 Other: Voiding Method Toilet Toilet # Voids 3 2 - Exam GENERAL EXAM: Patient is alert but seemed to be in distress with dizziness, not feeling well HEENT: Normocephalic. NECK: No masses, no nuchal rigidity. CHEST: No chest wall deformity. LUNGS: Equal air entry with no crackles or wheeze. HEART: S1 and S2 normal with no audible mumurs or gallops. Regular rhythm, femorals equal on both sides.. ABDOMEN: No hepatosplenomegaly, normal bowel sounds, no guarding or rigidity. SKIN: No rashes CENTRAL NERVOUS SYSTEM: As per neurology EXTREMITIES: No cyanosis, clubbing or edema. - Labs CBC & Chem 7: 03/01/22 06:32 03/01/22 06:32 Labs: Abnormal Lab Results - Last 24 Hours (Table) 03/01/22 03/01/22 03/01/22 Range/Units 06:32 06:32 16:52 POC Glucose (mg/dL) 102 H (75-99) mg/dL Hemoglobin A1c 8.7 H (0.0-6.0) % Triglycerides 175.00 H (0.00-149.00) mg/dL HDL Cholesterol 60.70 H (40.00-60.00) mg/dL 03/01/22 03/02/22 03/02/22 Range/Units 19:37 01:44 05:29 POC Glucose (mg/dL) 195 H 226 H 363 H (75-99) mg/dL Hemoglobin A1c (0.0-6.0) % Triglycerides (0.00-149.00) mg/dL HDL Cholesterol (40.00-60.00) mg/dL 03/02/22 Range/Units 11:36 POC Glucose (mg/dL) 120 H (75-99) mg/dL Hemoglobin A1c (0.0-6.0) % Triglycerides (0.00-149.00) mg/dL HDL Cholesterol (40.00-60.00) mg/dL Assessment and Plan (1) CVA (cerebral vascular accident) Current Visit: Yes Status: Acute Code(s): I63.9 - CEREBRAL INFARCTION, UNSPECIFIED SNOMED Code(s): 179937701 (2) Orthostatic hypotension Current Visit: Yes Status: Acute Code(s): I95.1 - ORTHOSTATIC HYPOTENSION SNOMED Code(s): 36080914 (3) Diabetes mellitus Current Visit: Yes Status: Acute Code(s): E11.9 - TYPE 2 DIABETES MELLITUS WITHOUT COMPLICATIONS SNOMED Code(s): 83691589 (4) Dizziness Current Visit: Yes Status: Acute Code(s): R42 - DIZZINESS AND GIDDINESS SNOMED Code(s): 124627407 Plan: Continue current medical therapy. Follow in section of neurologist . Consider event monitor before discharge. [place] as an outpatient. Knee-high stockings and consider adding Midodrin
[2022-03-02 16:40] LABS: Glucose,Whole Blood 259 mg/dL (75-99)
[2022-03-02 20:09] LABS: Glucose,Whole Blood 205 mg/dL (75-99)
[2022-03-02] MEDS: traZODone HCL 50 MG TAB PO SCH (20:12)
[2022-03-03 02:03] LABS: Glucose,Whole Blood 286 mg/dL (75-99)
[2022-03-03 03:19] LABS: Glucose,Whole Blood 343 mg/dL (75-99)
[2022-03-03] MEDS ORDERED: INSULIN ASPART (NovoLOG) 100 UNIT/ML VIAL SQ ONE ×2 (03:50→12:30)
[2022-03-03 06:04] LABS: Glucose,Whole Blood 339 mg/dL (75-99)
[2022-03-03] MEDS: INSULIN ASPART (NovoLOG) 100 UNIT/ML VIAL SQ SCH ×4 (06:09→21:44)
[2022-03-03] MEDS: LEVOTHYROXINE 88 MCG TAB PO SCH (06:09)
[2022-03-03] MEDS: SYMBICORT 80-4.5 MCG INHALER INHALATION SCH ×2 (07:36→21:16)
[2022-03-03] MEDS: IPRATROPIUM 0.5 MG/2.5 ML NEBU INHALATION SCH ×3 (07:36→21:17)
[2022-03-03] MEDS: ASPIRIN 325 MG TAB PO SCH (08:44)
[2022-03-03] MEDS: buPROPion XL 150 MG TAB.ER.24H PO SCH (08:45)
[2022-03-03] MEDS: ATORVASTATIN 40 MG TAB PO SCH (08:45)
[2022-03-03] MEDS: INSULIN DETEMIR (LEVEMIR) 100 UNIT/ML SYR SQ SCH (08:46)
[2022-03-03] MEDS: CLOPIDOGREL 75 MG TAB PO SCH (08:46)
--- NOTE | 2022-03-03 09:44 | P.PN ---
Subjective Progress Note Date: 03/03/22 HISTORY OF PRESENT ILLNESS: This is a pleasant 56-year-old female past medical history significant for type 2 diabetes, COPD, hypertension, hypothyroidism, chronic nicotine dependence, family history of CAD . She does not follow with a correctional probation officer. We have been asked to see in consultation for syncope. Patient presents with complaints of lightheadedness. She states yesterday she was walking into her friends house and had increased lightheadedness, she felt unstable on her feet, she felt as if she may pass out. She states her blood sugars were reading high at home. She was taking her insulin as prescribed. She denies any chest pain, palpitations, loss of consciousness. She does occasionally get shortness of breath with exertion. She is a current every day smoker, smokes 1/2 PPD. Family history includes, sister had an [place] and 4 stents placed in her early 60s. She denies any recent cardiac workup, states she had a normal stress test 20 years ago. She states she was started on Lisinopril 10mg once a day a few months ago. She states she had 2 syncopal episodes while standing after starting Lisinopril, it was decreased to 5mg daily and continued to have lightheadedness and syncope. On admission patient found to have a blood sugar of 599. Acute kidney injury. Sodium 128. Blood pressure also elevated SBP 170s. DIAGNOSTICS -EKG reveals sinus rhythm, heart rate 88, T wave inversion in lead aVL, poor R wave progression,no acute ischemia noted. Prior EKG in 01/2022 with similar findings. -Telemetry tracings indicate sinus mechanism, heart rate in the 60s80s. -Brain CT revealed hypodensity in the left internal capsule consistent with old lacunar infarct. No hemorrhage. -Chest xray no acute cardiopulmonary process -Laboratory reviewed, CBC unremarkable, sodium 132, potassium 4.9, BUN 22, serum, and 0.9, glucose 317, troponin negative -Current home medications include trazodone, rosuvastatin 20 mg daily, Wellbutrin and, insulin, Synthroid 03/02/2022 After admission to the hospital. Patient developed facial droop and weakness suggestive of CVA. Patient had an MRI which is sized to a small brainstem CVA. It was felt that it may be related to small vessel disease. Being followed by neurology. Neurology is requesting a outpatient [place] and also 30 day event monitor. Patient is still complaining of being dizzy and not feeling well. No complaint of chest pain or palpitations. No arrhythmias noted. Patient is also is documented to have postural hypotension and she is advised to wear knee-high stockings 03/03/2022 Patient examined this morning at the bedside. Patient denies chest pain or pressure. She denies shortness of breath. Patient states her speech is back to normal. She denies any dizziness or lightheadedness. She reports back pain from laying in the hospital bed. Vital signs are stable. Echocardiogram completed revealing ejection fraction 50-55%, mild tricuspid regurgitation, and mild mitral regurgitation. PHYSICAL EXAM: VITAL SIGNS: Reviewed. GENERAL: Well-developed in no acute distress. NECK: Supple. No JVD or thyromegaly LUNGS: Respirations even and unlabored. Lungs essentially clear to auscultation bilaterally. HEART: Regular rate and rhythm. S1 and S2 heard. EXTREMITIES: Normal range of motion. No clubbing or cyanosis. Peripheral pulses intact. No lower extremity edema ASSESSMENT: Acute CVA Lightheadedness, Pre-syncope Dysautonomia Hyperglycemia Orthostatic hypotension Acute kidney injury, improved Hyponatremia, improved Hypertension Hypothyroidism Type 2 Diabetes Chronic nicotine dependence Family history of CAD Old lacunar infarct seen on CT brain PLAN: Continue current cardiac medications Continue telemetry monitoring Patient to obtain event monitor at the time of discharge We'll plan for outpatient [place] Patient is currently stable from a cardiac standpoint Further recommendations pending patient course Nurse practitioner note has been reviewed by physician. Signing provider agrees with the documented findings, assessment, and plan of care. Objective - Vital Signs Vital signs: Vital Signs Temp 98.5 F 03/03/22 08:50 Pulse 90 03/03/22 08:50 Resp 16 03/03/22 08:50 BP 118/65 03/03/22 08:50 Pulse Ox 98 03/03/22 08:50 FiO2 Intake & Output 03/02/22 03/03/22 03/03/22 18:59 06:59 18:59 Intake Total 120 Balance 120 Intake: Oral 120 Other: Voiding Method Toilet # Voids 2 - Labs CBC & Chem 7: 03/01/22 06:32 03/01/22 06:32 Labs: Abnormal Lab Results - Last 24 Hours (Table) 03/02/22 03/02/22 03/02/22 Range/Units 11:36 16:39 20:07 POC Glucose (mg/dL) 120 H 259 H 205 H (75-99) mg/dL 03/02/22 03/03/22 03/03/22 Range/Units 20:07 02:02 03:16 POC Glucose (mg/dL) 205 H 286 H 343 H (75-99) mg/dL 03/03/22 Range/Units 06:03 POC Glucose (mg/dL) 339 H (75-99) mg/dL
[2022-03-03] MEDS ORDERED: ACETAMINOPHEN TAB 325 MG TAB ONE ×2 (11:03→15:13)
--- NOTE | 2022-03-03 14:43 | P.PN ---
Subjective Progress Note Date: 03/03/22 Patient feels she has generalized weakness but otherwise feels about the same. Denies any worsening of her neurological status. Objective - Vital Signs Vital signs: Vital Signs Temp 98.5 F 03/03/22 08:50 Pulse 90 03/03/22 08:50 Resp 16 03/03/22 08:50 BP 118/65 03/03/22 08:50 Pulse Ox 98 03/03/22 08:50 FiO2 Intake & Output 03/02/22 03/03/22 03/03/22 18:59 06:59 18:59 Intake Total 120 Balance 120 Intake: Oral 120 Other: Voiding Method Toilet # Voids 2 - Exam GENERAL: The patient is lying in bed and is not in acute distress. NEUROLOGICAL: Higher mental function: The patient is awake, alert, oriented to self, place and time. Patient is following commands. No aphasia and no neglect. Cranial nerves: The pupils are round, equal and reactive to light and accommodation. Visual rosario are full to confrontation throughout. Extraocular movement is intact no nystagmus is noted. Facial sensation is normal to touch throughout. The facial strength is left nasolabial flattening. Hearing is normal bilaterally to hand rub. Tongue is midline and moved [id number] without any difficulty. No dysarthria is noted. Shoulder shrug is normal bilaterally. Motor: Gait is deferred. The strength is left upper and lower extremity is 4+. Otherwise 5 over 5 throughout. Normal tone and bulk. Cerebellum: Mild dysmetria with finger and heel to martinez on left. Normal on right. Sensation: Sensation is normal to touch throughout. Reflexes (right/left): 1+ throughout. Plantars are mute bilaterally. SOME OF THE WORK-UP: Lipid Panel: TG 175, Cholestrol 175, LDL 79, HDL 60 TSH: 1.80 HbA1c: 8.7 CT of the head is reported as hypodensity in the left internal capsule consistent with old lacunar infarct. No hemorrhage. I personally reviewed the CT of the head and I felt was more subacute over the subcortical left frontal/hector radiata. I called Dr. Dsouza and he reviewed images and felt inde terminate age. CTA head and neck is reported as negative. MRI Brain: Evolving 1.1cm right mid pontine acute infarct. I personally reviewed the MRI and agree with the report. 2-D echo was reported as mild left ventricular hypertrophy with preserved left ventricular and right ventricular size and function. No significant valvular abnormality. Normal left atrial size. Routine EEG: Normal. There is no focal slowing, epileptiform discharges or seizure on the EEG. - Labs CBC & Chem 7: 03/01/22 06:32 03/01/22 06:32 Labs: Abnormal Lab Results - Last 24 Hours (Table) 03/02/22 03/02/22 03/02/22 Range/Units 16:39 20:07 20:07 POC Glucose (mg/dL) 259 H 205 H 205 H (75-99) mg/dL 03/03/22 03/03/22 03/03/22 Range/Units 02:02 03:16 06:03 POC Glucose (mg/dL) 286 H 343 H 339 H (75-99) mg/dL Assessment and Plan Assessment: * Acute ischemic stroke (right mid-medial bassam). On examination has left facial droop and left sided weakness. Appears due to due to small vessel disease due to her risk factors (DM, tobacco use). No IV tpa since outside window and risk outweigh benefit. * Patient dizziness due to positive orthostatic hypotension and component due ot above. * Syncopal episode: Does not appear seizure. Possible due to orthostatic vs hypoglycemic events. * Uncontrolled diabetes mellitus HbA1c: 8.7 * Chronic neck pain * Peripheral neuropathy * Hypothyroidism * Tobacco use Plan: The patient is started on ASA 325mg daily and Plavix 75mg daily (both new during this admission). Patient to be on dual antiplatelets for 21 and after that stop Plavix but continue ASA. Continue Lipitor 40 mg daily for secondary stroke prophylaxis. If patient condition detoriate reactivate stroke pager and since this is brain stem stroke if any worsening of her condition can transfer to our ICU for closer neurological monitoring. Consulted the PT OT and COPPER FLOTATION OPERATOR Every 4 hours neuro checks. Continue on cardiac monitoring Consider [place] as outpatient and consider event monitor for 30 days if possible prior to discharge. Consulted Dr. Menjivar for inpatient rehab. Cardiology team is consulted. For the orthostatic hypotension recommend that compression socks initially and and we'll defer the rest of the management to cardiology team. We'll defer the rest of the medical management to primary team For DVT prophylaxis: On subq heparin 5000U every 8 hours. Recommend patient to follow-up with neurologist as outpatient within 1-2 weeks. Otherwise no additional work-up. Consulted Dr. Menjivar for inpatient rehab which I think patient will benefit from. The plan is discussed with patient and her nurse. Arnold Dooley M.D. Neuro-Hospitalist Time with Patient: Less than 30
[2022-03-03 14:52] LABS: Glucose,Whole Blood 200 mg/dL (75-99)
[2022-03-03 16:21] LABS: Glucose,Whole Blood 258 mg/dL (75-99)
[2022-03-03] MEDS: HEPARIN SODIUM,PORCINE/PF 5,000 UNIT/0.5 ML SYRINGE SQ SCH ×3 (16:41→23:28)
[2022-03-03] MEDS: FLUTICASONE 50MCG/SPRAY NASAL 16GM EA NOSTRIL SCH (16:42)
[2022-03-03] MEDS: FLUDROCORTISONE 0.1 MG TAB PO SCH (16:59)
--- NOTE | 2022-03-03 19:35 | PN ---
PROGRESS NOTE DATE OF SERVICE: 03/02/2022 This 56-year-old woman who was admitted with a left-sided facial droop and orthostatic hypotension was evaluated for TIA. No chest pain. No palpitations. No fever. On exam, the pulse is 77, blood pressure 90/58 on sitting, and standing is 89/54. HEENT: Conjunctivae normal. NECK: No jugular venous distention. CARDIOVASCULAR: S1, S2 muffled. RESPIRATION: Breath sounds diminished at the bases. ABDOMEN: Soft. NERVOUS SYSTEM: No focal deficit. Labs are glucose 339, 200. List of medications is reviewed which includes Lipitor and aspirin. Doses are reviewed. Fourteen-point review of systems negative except as mentioned earlier. ASSESSMENT: 1. Possible transient ischemic attack. 2. Orthostatic hypotension. 3. Diabetes mellitus, type 2. 4. Hyponatremia. 5. History of chronic obstructive pulmonary disease. RECOMMENDATIONS AND DISCUSSION: I recommend to continue current medications, continue with the monitoring, symptomatic treatment. Antiplatelet agents. Add Florinef to the current regimen. IV fluids. Will continue to monitor. Prognosis guarded. Further recommendations to follow. Closely follow with Neurology. Discussed with the patient and family. The patient is also requesting transfer to [facility] for evaluation of TIA, but the neurologist is following the patient and the patient is undergoing neuro checks and neurological evaluation. Will continue to monitor. seaport planning manager to be informed. Discussed with the staff and discussed with the family and patient. JIMBO / SLICK: [id number] /
[2022-03-03 20:31] LABS: Glucose,Whole Blood 205 mg/dL (75-99)
[2022-03-03] MEDS: traZODone HCL 50 MG TAB PO SCH (21:44)
[2022-03-04 01:54] LABS: Glucose,Whole Blood 345 mg/dL (75-99)
--- NOTE | 2022-03-04 05:23 | P.CONS ---
History of Present Illness - Chief Complaint Walking difficulty - History of Present Illness I had the opportunity to see patient for inpatient rehab consultation with regard to walking difficulty. Patient admitted to [facility] February 28 dizziness, elevated blood sugar and orthostasis, to Dr. Hadley. We seen by cardiology. Seen by neurology, Dr. Arnold Dooley who notes left-sided weakness related to stroke. Laboratories cardiac echo done. Chest x-ray negative. Initial head CT demonstrated left internal capsule infarct but follow-up CT demonstrates left frontal and right bassam infarct. Angiogram CT negative. Brain MRI demonstrates 1.1 cm right mid bassam infarct as well as cerebral atrophy and left mastoiditis. His started therapies. PT reports supervision to minimal assistance for bed mobility. Independent with gait 100 feet with roller walker. OT reports supervision for feeding and upper dressing and modified independent with grooming. Minimal assistance for lower dressing, bathing, toileting and functional mobility/transfers. Speech therapy notes some slurring of speech and left facial weakness. Previous functional history as elicited from patient: 56-year-old right-handed white female who is single lives in one floor home. Daughter recently moved out and to a [place]. Patient applied for disability was just turned down. Describes independent with own cooking, laundry, driving, standing shower. She been doing a sitdown shower for the last couple of weeks related to the dizziness. Does not require assistive device for gait around the house. PCP Dr. Hadley. Admits to smoking but plans on quitting now. Denies alcohol. Review of Systems Review of systems: ENT: Denies sneezes or discharge. Eyes: Denies discharge or photophobia. Cardiac: Denies chest pain or palpitation. Pulmonary: Denies cough or shortness of breath. Breast: Denies discharge or lumps. Gastrointestinal: Denies nausea, emesis, constipation, diarrhea. Genitourinary: Denies discharge or frequency. Musculoskeletal: Denies muscle or bone aches. Neurologic: Resolving dizziness. Endocrine: Denies shakes or sweats. Oncology: Denies cancers. Dermatologic: Denies rash, itching, pruritus. ALLERGY/immunology: Denies sneezes, rashes. Past Medical History Past Medical History: COPD, Diabetes Mellitus, Fibromyalgia, GERD/Reflux, Hypertension, Osteoarthritis (OA), Thyroid Disorder Additional Past Medical History / Comment(s): NEUROPATHY BILATERAL FEET, -DDD NECK AND LOWER BACK, hiatal hernia, no need for BP med anymore, hepatitis as a kid, fell & fx. left wrist 11-05-18-wearing splint History of Any Multi-Drug Resistant Organisms: MRSA Year Discovered:: 05/2016 MDRO Source:: rt great toe Past Surgical History: Adenoidectomy, Back Surgery, Bladder Surgery, Hysterectomy, Orthopedic Surgery, Tonsillectomy, Tubal Ligation Additional Past Surgical History / Comment(s): Debridement R foot, PICC line/later removed, bladder suspension, exploratory laparotomy, rt great toe amputation, pins right feet, cataracts removed Past Anesthesia/Blood Transfusion Reactions: No Reported Reaction Additional Past Anesthesia/Blood Transfusion Reaction / Comm: . Past Psychological History: Anxiety Additional Psychological History / Comment(s): . Smoking Status: Current every day smoker Past Alcohol Use History: None Reported, Rare Additional Past Alcohol Use History / Comment(s): SMOKER SINCE PPD Past Drug Use History: None Reported - Past Family History Mother Family Medical History: No Reported History Additional Family Medical History / Comment(s): Mother has back problems. She is 73 yrs old. Father Additional Family Medical History / Comment(s): at 26yrs old--accident at work Medications and Allergies Home Medications Medication Instructions Recorded Confirmed Type Acetaminophen Tab [Tylenol] 2,000 mg PO DAILY 08/20/21 02/28/22 History Fluticasone/Umeclidin/Vilanter 1 puff INHALATION RT-DAILY 08/20/21 02/28/22 History [Laquita Rileyta 100-62.5-25] Rosuvastatin [Crestor] 20 mg PO DAILY 08/20/21 02/28/22 History Clotrimazole Cream [Lotrimin Cream] 1 applic TOPICAL DAILY 02/02/22 02/28/22 History Fluticasone Nasal Tynan [Flonase 1 spray EA NOSTRIL DAILY 02/02/22 02/28/22 History Nasal Tynan] Insulin Glargine,Hum.rec.anlog 25 unit SQ DAILY 02/02/22 02/28/22 History [Lantus Solostar Pen] Levothyroxine Sodium [Synthroid] 175 mcg PO DAILY 02/02/22 02/28/22 History buPROPion XL [Wellbutrin XL] 150 mg PO DAILY 02/02/22 02/28/22 History traZODone HCL 50 mg PO HS 02/02/22 02/28/22 History Insulin Aspart [NovoLOG Flexpen] See Protocol SQ AC-TID 02/28/22 02/28/22 Hist ory Allergies Allergy/AdvReac Type Severity Reaction Status Date / Time Sulfa (Sulfonamide Allergy Rash/Hives Verified 02/28/22 22:54 Antibiotics) Physical Exam Vitals: Vital Signs Temp Pulse Pulse Pulse Pulse Pulse Resp 03/04/22 03:55 98 18 03/03/22 23:30 85 17 03/03/22 21:45 98.2 F 73 18 03/03/22 16:00 98.3 F 90 16 03/03/22 12:00 98.2 F 77 16 03/03/22 08:50 98.5 F 95 100 90 16 03/03/22 07:36 97 BP BP BP BP Pulse Ox 03/04/22 03:55 149/79 97 03/03/22 23:30 153/69 98 03/03/22 21:45 133/79 95 03/03/22 16:00 110/52 97 03/03/22 12:00 117/66 98 03/03/22 08:50 90/58 89/54 118/65 98 03/03/22 07:36 97 Intake and Output 03/03/22 03/03/22 03/04/22 14:59 22:59 06:59 Intake Total 540 120 Output Total 400 Balance 540 -280 Intake: Oral 540 120 Output: Urine 400 Other: Voiding Method Toilet Toilet # Voids 1 2 Skin: Good color, texture, turgor. General: Thin build and comfortable appearance. Head: Normocephalic, atraumatic. Eyes: Symmetric. Pupils equal round. Ears: Symmetric. Hearing within normal limits. Mouth: Clear. Neck: Supple. Carotid without bruit. Cardiac: Regular rate and rhythm. Lungs: Clear anteriorly and posteriorly. Abdomen: Soft active nontender. Extremities: Normal tone. Neurological: Mental status: Alert, cooperative, pleasant. Cranial nerves: Symmetric facial tone and trapezius. Motor: Normal strength and isolation all 4 limbs. Sensation: Intact throughout. DTRs: Symmetric and equal throughout. Mobility: Did not attempt to sit or stand this early a.m. Results CBC & Chem 7: 03/01/22 06:32 03/01/22 06:32 Labs: Abnormal Lab Results - Last 24 Hours (Table) 03/03/22 03/03/22 03/03/22 Range/Units 06:03 12:05 16:19 POC Glucose (mg/dL) 339 H 200 H 258 H (75-99) mg/dL 03/03/22 03/04/22 Range/Units 20:29 01:48 POC Glucose (mg/dL) 205 H 345 H (75-99) mg/dL Assessment and Plan (1) CVA (cerebral vascular accident) Current Visit: Yes Status: Acute Code(s): I63.9 - CEREBRAL INFARCTION, UNSPECIFIED SNOMED Code(s): 221414179 (2) Dizziness Current Visit: Yes Status: Acute Code(s): R42 - DIZZINESS AND GIDDINESS SNOMED Code(s): 995301585 (3) Orthostatic hypotension Current Visit: Yes Status: Acute Code(s): I95.1 - ORTHOSTATIC HYPOTENSION SNOMED Code(s): 72233859 (4) DKA (diabetic ketoacidoses) Current Visit: No Status: Acute Code(s): E13.10 - OTH DIABETES MELLITUS WITH KETOACIDOSIS WITHOUT COMA SNOMED Code(s): 869831271 Plan: Comments and plan: Safety concerns noted. Patient now living on own, daughter has just recently moved out. Have discussed possible inpatient rehabilitation at this time she strongly prefers to return home and no further hospitalization. Note if patient change her mind, would except for inpatient rehab.
[2022-03-04 05:33] LABS: Glucose,Whole Blood 507 mg/dL (75-99)
[2022-03-04 05:33] LABS: Glucose,Whole Blood 518 mg/dL (75-99)
[2022-03-04] MEDS: INSULIN ASPART (NovoLOG) 100 UNIT/ML VIAL SQ SCH ×4 (05:34→20:04)
[2022-03-04] MEDS: LEVOTHYROXINE 88 MCG TAB PO SCH (05:34)
[2022-03-04] MEDS ORDERED: INSULIN ASPART (NovoLOG) 100 UNIT/ML VIAL SQ ONE (05:39)
[2022-03-04] MEDS: IPRATROPIUM 0.5 MG/2.5 ML NEBU INHALATION SCH ×4 (07:29→21:02)
[2022-03-04] MEDS: SYMBICORT 80-4.5 MCG INHALER INHALATION SCH ×2 (07:29→21:02)
[2022-03-04] MEDS: INSULIN DETEMIR (LEVEMIR) 100 UNIT/ML SYR SQ SCH (08:39)
[2022-03-04] MEDS: FLUDROCORTISONE 0.1 MG TAB PO SCH (08:46)
[2022-03-04] MEDS: ACETAMINOPHEN TAB 325 MG TAB PO PRN ×2 (08:46→17:51)
[2022-03-04] MEDS: buPROPion XL 150 MG TAB.ER.24H PO SCH (08:47)
[2022-03-04] MEDS: ATORVASTATIN 40 MG TAB PO SCH (08:47)
[2022-03-04] MEDS: CLOPIDOGREL 75 MG TAB PO SCH (08:47)
[2022-03-04] MEDS: HEPARIN SODIUM,PORCINE/PF 5,000 UNIT/0.5 ML SYRINGE SQ SCH ×3 (08:47→23:27)
[2022-03-04] MEDS: ASPIRIN 325 MG TAB PO SCH (08:47)
[2022-03-04] MEDS: FLUTICASONE 50MCG/SPRAY NASAL 16GM EA NOSTRIL SCH (08:49)
[2022-03-04 08:59] LABS: Basophils % (A) 1 %; Eosinophils # (A) 0.3 k/uL (0-0.7); Eosinophils % (A) 5 %; HGB 11.1 gm/dL (11.4-16.0); Lymphocytes # (A) 1.6 k/uL (1.0-4.8); Lymphocytes % (A) 25 %; MCH 30.6 pg (25.0-35.0); MCHC 32.7 g/dL (31.0-37.0); MCV 93.4 fL (80.0-100.0); Mean Platelet Volume 7.6; Monocytes # (A) 0.3 k/uL (0-1.0); Monocytes % (A) 4 %; Neutrophils % (A) 64 %; Platelet Count 263 k/uL (150-450); RBC 3.64 m/uL (3.80-5.40); RDW 11.9 % (11.5-15.5); WBC 6.3 k/uL (3.8-10.6)
[2022-03-04 09:07] LABS: Albumin 2.9 g/dL (3.5-5.0); Calcium 8.5 mg/dL (8.4-10.2); Potassium 3.7 mmol/L (3.5-5.1); Total Bilirubin 0.1 mg/dL (0.2-1.3); Total Protein 5.6 g/dL (6.3-8.2)
--- NOTE | 2022-03-04 09:33 | P.PN ---
Subjective Progress Note Date: 03/04/22 HISTORY OF PRESENT ILLNESS: This is a pleasant 56-year-old female past medical history significant for type 2 diabetes, COPD, hypertension, hypothyroidism, chronic nicotine dependence, family history of CAD . 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 We have been asked to see in consultation for syncope. Patient presents with complaints of lightheadedness. She states yesterday she was walking into her friends house and had increased lightheadedness, she felt unstable on her feet, she felt as if she may pass out. She states her blood sugars were reading high at home. She was taking her insulin as prescribed. She denies any chest pain, palpitations, loss of consciousness. She does occasionally get shortness of breath with exertion. She is a current every day smoker, smokes 1/2 PPD. Family history includes, sister had an ND and 4 stents placed in her early 60s. She denies any recent cardiac workup, states she had a normal stress test 20 years ago. She states she was started on Lisinopril 10mg once a day a few months ago. She states she had 2 syncopal episodes while standing after starting Lisinopril, it was decreased to 5mg daily and continued to have lightheadedness and syncope. On admission patient found to have a blood sugar of 599. Acute kidney injury. Sodium 128. Blood pressure also elevated SBP 170s. DIAGNOSTICS -EKG reveals sinus rhythm, heart rate 88, T wave inversion in lead aVL, poor R wave progression,no acute ischemia noted. Prior EKG in 01/2022 with similar findings. -Telemetry tracings indicate sinus mechanism, heart rate in the 60s80s. -Brain CT revealed hypodensity in the left internal capsule consistent with old lacunar infarct. No hemorrhage. -Chest xray no acute cardiopulmonary process -Laboratory reviewed, CBC unremarkable, sodium 132, potassium 4.9, BUN 22, serum, and 0.9, glucose 317, troponin negative -Current home medications include trazodone, rosuvastatin 20 mg daily, Wellbutrin and, insulin, Synthroid 03/02/2022 After admission to the hospital. Patient developed facial droop and weakness suggestive of CVA. Patient had an MRI which is sized to a small brainstem CVA. It was felt that it may be related to small vessel disease. Being followed by neurology. Neurology is requesting a outpatient AFRICA and also 30 day event monitor. Patient is still complaining of being dizzy and not feeling well. No complaint of chest pain or palpitations. No arrhythmias noted. Patient is also is documented to have postural hypotension and she is advised to wear knee-high stockings 03/03/2022 Patient examined this morning at the bedside. Patient denies chest pain or pressure. She denies shortness of breath. Patient states her speech is back to normal. She denies any dizziness or lightheadedness. She reports back pain from laying in the hospital bed. Vital signs are stable. Echocardiogram completed revealing ejection fraction 50-55%, mild tricuspid regurgitation, and mild mitral regurgitation. 03/04/2022 Patient examined this morning at the bedside. Patient denies chest pain or pressure. She denies shortness of breath. She denies any dizziness. Patient reports not feeling well because her blood sugars are elevated with a recent reading in the 500s. PHYSICAL EXAM: VITAL SIGNS: Reviewed. GENERAL: Well-developed in no acute distress. NECK: Supple. No JVD or thyromegaly LUNGS: Respirations even and unlabored. Lungs essentially clear to auscultation bilaterally. HEART: Regular rate and rhythm. S1 and S2 heard. EXTREMITIES: Normal range of motion. No clubbing or cyanosis. Peripheral pulses intact. No lower extremity edema ASSESSMENT: Acute CVA Lightheadedness, Pre-syncope Dysautonomia Hyperglycemia Orthostatic hypotension Acute kidney injury, improved Hyponatremia, improved Hypertension Hypothyroidism Type 2 Diabetes Chronic nicotine dependence Family history of CAD Old lacunar infarct seen on CT brain PLAN: Continue current cardiac medications Continue telemetry monitoring Patient to obtain event monitor at the time of discharge. This may be obtained from the cardiology office if necessary We'll plan for outpatient AFRICA which can further be discussed at her follow up appointment Patient is currently stable from a cardiac standpoint Further recommendations pending patient course Nurse practitioner note has been reviewed by physician. Signing provider agrees with the documented findings, assessment, and plan of care. Objective - Vital Signs Vital signs: Vital Signs Temp 98.2 F 03/03/22 21:45 Pulse 98 03/04/22 03:55 Resp 18 03/04/22 03:55 BP 149/79 03/04/22 03:55 Pulse Ox 97 03/04/22 03:55 FiO2 Intake & Output 03/03/22 03/04/22 03/04/22 18:59 06:59 18:59 Intake Total 660 Output Total 400 Balance 660 -400 Intake: Oral 660 Output: Urine 400 Other: Voiding Method Toilet # Voids 1 2 - Labs CBC & Chem 7: 03/04/22 08:32 03/04/22 08:32 Labs: Abnormal Lab Results - Last 24 Hours (Table) 03/03/22 03/03/22 03/03/22 Range/Units 12:05 16:19 20:29 RBC (3.80-5.40) m/uL Hgb (11.4-16.0) gm/dL Sodium (137-145) mmol/L BUN (7-17) mg/dL Creatinine (0.52-1.04) mg/dL Glucose (74-99) mg/dL POC Glucose (mg/dL) 200 H 258 H 205 H (75-99) mg/dL Total Bilirubin (0.2-1.3) mg/dL Total Protein (6.3-8.2) g/dL Albumin (3.5-5.0) g/dL 03/04/22 03/04/22 03/04/22 Range/Units 01:48 05:29 05:31 RBC (3.80-5.40) m/uL Hgb (11.4-16.0) gm/dL Sodium (137-145) mmol/L BUN (7-17) mg/dL Creatinine (0.52-1.04) mg/dL Glucose (74-99) mg/dL POC Glucose (mg/dL) 345 H 507 H 518 H (75-99) mg/dL Total Bilirubin (0.2-1.3) mg/dL Total Protein (6.3-8.2) g/dL Albumin (3.5-5.0) g/dL 03/04/22 03/04/22 Range/Units 08:32 08:32 RBC 3.64 L (3.80-5.40) m/uL Hgb 11.1 L (11.4-16.0) gm/dL Sodium 132 L (137-145) mmol/L BUN 37 H (7-17) mg/dL Creatinine 1.23 H (0.52-1.04) mg/dL Glucose 267 H (74-99) mg/dL POC Glucose (mg/dL) (75-99) mg/dL Total Bilirubin 0.1 L (0.2-1.3) mg/dL Total Protein 5.6 L (6.3-8.2) g/dL Albumin 2.9 L (3.5-5.0) g/dL
[2022-03-04 12:05] LABS: Glucose,Whole Blood 414 mg/dL (75-99)
--- NOTE | 2022-03-04 14:42 | CDI ---
Documentation Clarification Form Date: 03/04/2022 02:29:03 PM From: Kimberly Cabrales CCS, CCDS Admit Date: 03/01/2022 02:25:00 PM Patient Name: Mila Camilo Visit Number: [id number] Discharge Date: ATTENTION: The Clinical Documentation Specialists (CDI) and [facility] Coding Staff appreciate your assistance in clarifying documentation. Please respond to the clarification below the line at the bottom and electronically sign. The CDI & [facility] Coding staff will review the response and follow-up if needed. Please note: Queries are made part of the Legal Health Record. If you have any questions, please contact the author of this message via ITS. Dr. Brianna Donnelly: Conflicting documentation has been found in the medical record: Per the 03/01 Neurology Consult: Acute transient left facial droop, dysarthria but continues to have some left upper extremity weakness. Seems likely acute ischemic stroke. CVA is documented in the 03/02, & Progress Notes. Per the 03/03 Attending Progress Note: Possible TIA As attending physician, please provide clarification. History/Risk Factors per the 03/01 H/P: DM Type 1, COPD, Fibromyalgia, Hypertension, Hyperlipidemia, Osteoarthritis, Hypothyroidism, Neuropathy, Left wrist fracture, Smoker. Clinical Indicators: Presented to the ED on 02/28 with dizziness, weakness and being off balance. Admit with Hyperglycemia, Orthostatic Hypotension 02/28 CT Brain: Hypodensity in the left internal capsule consistent with old lacunar infarct. 03/01 CT Brain: Redemonstration of the left frontal subcortical white matter ischemic focus vs infarction of indeterminate age. More apparent right pontine hypodensity, possibly artifactual vs evolving acute to subacute infarct. 03/02 MRI Brain: Evolving 1.1 cm right mid pontine acute infarct. Treatment 02/28: Accuchecks, Telemetry, Monitor BP, IV Na Cl 1,000 mls @ 999 mls/hr q1H. 03/01: Insulin sliding scale, Hypoglycemia protocol, Neurological assessment, Neurology consult, Cardiology consult, po Aspirin 235 mg Daily, Heparin sq Please clarify which diagnosis is most appropriate: [ ] CVA [ ] TIA [ ] Other (please specify) [ ] Unable to determine (Template Last Revised: December 2020) CVA MTDD
--- NOTE | 2022-03-04 15:38 | P.PN ---
Subjective Progress Note Date: 03/04/22 The patient is seen at bedside and feels about the same. Denies any new neurological issues. She wants to be transferred to another facility for escalation of care. Objective - Vital Signs Vital signs: Vital Signs Temp 98.2 F 03/04/22 08:00 Pulse 83 03/04/22 08:00 Resp 18 03/04/22 08:00 BP 133/76 03/04/22 08:00 Pulse Ox 94 L 03/04/22 08:00 FiO2 Intake & Output 03/03/22 03/04/22 03/04/22 18:59 06:59 18:59 Intake Total 660 Output Total 400 Balance 660 -400 Intake: Oral 660 Output: Urine 400 Other: Voiding Method Toilet # Voids 1 2 - Exam GENERAL: The patient is lying in bed and is not in acute distress. NEUROLOGICAL: Higher mental function: The patient is awake, alert, oriented to self, place and time. Patient is following commands. No aphasia and no neglect. Cranial nerves: The pupils are round, equal and reactive to light and accommodation. Visual rosario are full to confrontation throughout. Extraocular movement is intact no nystagmus is noted. Facial sensation is normal to touch throughout. The facial strength is left nasolabial flattening. Hearing is normal bilaterally to hand rub. Tongue is midline and moved [id number] without any difficulty. No dysarthria is noted. Shoulder shrug is normal bilaterally. Motor: Gait is deferred. The strength is left upper and lower extremity is 4+. Otherwise 5 over 5 throughout. Normal tone and bulk. Cerebellum: Mild dysmetria with finger and heel to martinez on left. Normal on right. Sensation: Sensation is normal to touch throughout. Reflexes (right/left): 1+ throughout. Plantars are mute bilaterally. SOME OF THE WORK-UP: Lipid Panel: TG 175, Cholestrol 175, LDL 79, HDL 60 TSH: 1.80 HbA1c: 8.7 CT of the head is reported as hypodensity in the left internal capsule consistent with old lacunar infarct. No hemorrhage. I personally reviewed the CT of the head and I felt was more subacute over the subcortical left frontal/hector radiata. I called Dr. Dsouza and he reviewed images and felt indeterminate age. CTA head and neck is reported as negative. MRI Brain: Evolving 1.1cm right mid pontine acute infarct. I personally reviewed the MRI and agree with the report. 2-D echo was reported as mild left ventricular hypertrophy with preserved left ventricular and right ventricular size and function. No significant valvular abnormality. Normal left atrial size. Routine EEG: Normal. There is no focal slowing, epileptiform discharges or seizure on the EEG. - Labs CBC & Chem 7: 03/04/22 08:32 03/04/22 08:32 Labs: Abnormal Lab Results - Last 24 Hours (Table) 03/03/22 03/03/22 03/04/22 Range/Units 16:19 20:29 01:48 RBC (3.80-5.40) m/uL Hgb (11.4-16.0) gm/dL Sodium (137-145) mmol/L BUN (7-17) mg/dL Creatinine (0.52-1.04) mg/dL Glucose (74-99) mg/dL POC Glucose (mg/dL) 258 H 205 H 345 H (75-99) mg/dL Total Bilirubin (0.2-1.3) mg/dL Total Protein (6.3-8.2) g/dL Albumin (3.5-5.0) g/dL 03/04/22 03/04/22 03/04/22 Range/Units 05:29 05:31 08:32 RBC 3.64 L (3.80-5.40) m/uL Hgb 11.1 L (11.4-16.0) gm/dL Sodium (137-145) mmol/L BUN (7-17) mg/dL Creatinine (0.52-1.04) mg/dL Glucose (74-99) mg/dL POC Glucose (mg/dL) 507 H 518 H (75-99) mg/dL Total Bilirubin (0.2-1.3) mg/dL Total Protein (6.3-8.2) g/dL Albumin (3.5-5.0) g/dL 03/04/22 03/04/22 Range/Units 08:32 12:04 RBC (3.80-5.40) m/uL Hgb (11.4-16.0) gm/dL Sodium 132 L (137-145) mmol/L BUN 37 H (7-17) mg/dL Creatinine 1.23 H (0.52-1.04) mg/dL Glucose 267 H (74-99) mg/dL POC Glucose (mg/dL) 414 H (75-99) mg/dL Total Bilirubin 0.1 L (0.2-1.3) mg/dL Total Protein 5.6 L (6.3-8.2) g/dL Albumin 2.9 L (3.5-5.0) g/dL Assessment and Plan Assessment: * Acute ischemic stroke (right mid-medial bassam). On examination has left facial droop and left sided weakness. Appears due to due to small vessel disease due to her risk factors (DM, tobacco use). No IV tpa since outside window and risk outweigh benefit. * Patient dizziness due to positive orthostatic hypotension and component due ot above. * Syncopal episode: Does not appear seizure. Possible due to orthostatic vs hypoglycemic events. * Uncontrolled diabetes mellitus HbA1c: 8.7 * Chronic neck pain * Peripheral neuropathy * Hypothyroidism * Tobacco use Plan: The patient is started on ASA 325mg daily and Plavix 75mg daily (both new during this admission). Patient to be on dual antiplatelets for 21 and after that stop Plavix but continue ASA. Continue Lipitor 40 mg daily for secondary stroke prophylaxis. If patient condition detoriate reactivate stroke pager and since this is brainstem stroke if any worsening of her condition can transfer to our ICU for closer neurological monitoring---so far she has been stable for the past 48 hours. Consulted the PT OT and MATHEMATICAL SCIENCES PROFESSOR Every 4 hours neuro checks. Continue on cardiac monitoring Consider AFRICA as outpatient and consider event monitor for 30 days if possible prior to discharge. Cardiology is on board and will plan AFRICA as outpatient. And will obtain event monitor at time of discharge. Consulted Dr. Menjivar for inpatient rehab. Cardiology team is consulted. For the orthostatic hypotension recommend that compression socks initially and and we'll defer the rest of the management to cardiology team. We'll defer the rest of the medical management to primary team For DVT prophylaxis: On subq heparin 5000U every 8 hours. Recommend patient to follow-up with neurologist as outpatient within 1-2 weeks. Otherwise no additional work-up. Consulted Dr. Menjivar for inpatient rehab which I think patient will benefit from. The plan is discussed with patient and her nurse. Patient wants to be transferred for escalation of care. From neurological team no escalation of care is needed. Neurology will sign off. Please reconsult if needed. Arnold Dooley M.D. Neuro-Hospitalist Time with Patient: Less than 30
[2022-03-04 16:25] LABS: Glucose,Whole Blood 193 mg/dL (75-99)
[2022-03-04] MEDS: SODIUM CHLORIDE 0.9% 1,000 ML IV SCH ×2 (18:38→18:39)
[2022-03-04 20:00] LABS: Glucose,Whole Blood 209 mg/dL (75-99)
[2022-03-04] MEDS: traZODone HCL 50 MG TAB PO SCH (20:04)
[2022-03-04 23:03] VITALS: TEMP 98.1
[2022-03-05 00:16] VITALS: BP 130/77; PULSE 80; RESP 19
--- NOTE | 2022-03-05 00:32 | P.DS ---
Providers Date of admission: 03/01/22 14:25 Expected date of discharge: 03/05/22 Attending physician: Isaiah Hadley Consults: 03/01/22 10:09 Consult Physician Routine Consulting Provider: Clinton Pitts Consult Reason/Comments: syncope Do you want consulting provider notified?: Yes Consult Physician Urgent Consulting Provider: Arnold Dooley Consult Reason/Comments: syncope Do you want consulting provider notified?: Yes 03/03/22 11:53 Consult Physician Routine Consulting Provider: Alan Menjivar Consult Reason/Comments: rehab. Has acute stroke Do you want consulting provider notified?: Yes Primary care physician: Isaiah Hadley Hospital Course: Final Diagnosis Acute CVA Orthostatic hypotension Diabetes mellitus, type 1, uncontrolled with hyperglycemia hypothyroidism COPD, not in exacerbation GERD DDD of neck and lumbar spine Continued ongoing nicotine abuse DVT prophylaxis GI prophylaxis Full code Discharge disposition Patient is being transferred in a stable condition with guarded prognosis to [facility] with attending Dr. Veloz accepted for neurological evaluation of her acute cva. Awaiting bed assignment. Transfer team to call nurse when bed available. Total time taken is greater than 35 minutes. Hospital course Patient is a very pleasant 56 year old female that presented to the emergency room last night with dizziness and near syncope. Patient was seen in the office last week for similar symptoms, and was referred to the emergency room, was unable to go due to family trouble. She reported dizziness with position changes, headaches, and feeling foggy. Patient has a pertinent medical history of type 1 diabetes, COPD, fibromyalgia, Hypertension, hyperlipidemia, OA, hypothyroidism, neuropathy, left wrist fracture, current smoker. Chest xray was negative, brain ct showed old lacunar infarct on left side. Orthostatic blood pressure were grossly positive in the emergency room. Neurology and cardiology were consulted for evaluation of syncope. This morning on exam, patient was noted to have slurred speech and left sided facial droop. Code stroke was called and CTA of head and neck was obtained, awaiting results and neurology recommendations. 03/02/2022 Patient was seen and assessed at bedside. Reports nausea as well as continued dizziness, left sided weakness and difficulty with speech. MRI shows evolving right acute infarct. following with neurology recommendations. Continue frequent neuro exams and cardiac monitoring. 03/04/2022 Patient continues on aspirin, plavix, and statin and continues to request second opinion. Transfer to [facility] was initiated and report was called and patient is accepted for neurological evaluation with Dr. Veloz and currently awaiting bed assignment. Currently no reports of chest pain, shortness of breath, or palpitations. Patient is afebrile. No reports of nausea or vomiting and patient is tolerating diet. Patient will be transferred to [facility]. Physical exam: Gen: This is a 56-year-old female awake, alert and oriented 2-3, well- developed, well-nourished HEENT: Head is atraumatic, normocephalic. Pupils equal, round. Sclerae is anicteric. NECK: Supple. No JVD. No lymphadenopathy. No thyromegaly. LUNGS: Clear to auscultation. No wheezes or rhonchi. No intercostal retractions. HEART: Regular rate and rhythm. No murmur. ABDOMEN: Soft. Bowel sounds are present. No masses. No tenderness. EXTREMITIES: No pedal edema. No calf tenderness. NEUROLOGICAL: Patient is awake, alert and oriented x2-3. Occasional dizziness. Diffuse weakness Please refer to medication reconciliation sheet for a list of medications. The impression and plan of care has been dictated by Mandy Granda, Nurse Practitioner as directed. Dr. Jordyn MD I have performed a history and examination and MDM of this patient, discussed the same with the dictator, and agree with the dictator's assessment and plan as written ,documented as a scribe. Based on total visit time, I have performed more than 50% of the visit. Patient Condition at Discharge: Stable Plan - Discharge Summary Discharge Rx Participant: No New Discharge Prescriptions: No Action Rosuvastatin [Crestor] 20 mg PO DAILY Acetaminophen Tab [Tylenol] 2,000 mg PO DAILY Fluticasone Nasal [place] [Flonase Nasal [place]] 1 spray EA NOSTRIL DAILY Clotrimazole Cream [Lotrimin Cream] 1 applic TOPICAL DAILY buPROPion XL [Wellbutrin XL] 150 mg PO DAILY Insulin Glargine,Hum.rec.anlog [Lantus Solostar Pen] 25 unit SQ DAILY Fluticasone/Umeclidin/Vilanter [Trelegy Ellipta 100-62.5-25] 1 puff INHALATION RT-DAILY traZODone HCL 50 mg PO HS Levothyroxine Sodium [Synthroid] 175 mcg PO DAILY Insulin Aspart [NovoLOG Flexpen] See Protocol SQ AC-TID Discharge Medication List Acetaminophen Tab [Tylenol] 2,000 mg PO DAILY 08/20/21 [History] Fluticasone/Umeclidin/Vilanter [Trelegy Ellipta 100-62.5-25] 1 puff INHALATION RT-DAILY 08/20/21 [History] Rosuvastatin [Crestor] 20 mg PO DAILY 08/20/21 [History] Clotrimazole Cream [Lotrimin Cream] 1 applic TOPICAL DAILY 02/02/22 [History] Fluticasone Nasal [place] [Flonase Nasal [place]] 1 spray EA NOSTRIL DAILY 02/02/22 [History] Insulin Glargine,Hum.rec.anlog [Lantus Solostar Pen] 25 unit SQ DAILY 02/02/22 [History] Levothyroxine Sodium [Synthroid] 175 mcg PO DAILY 02/02/22 [History] buPROPion XL [Wellbutrin XL] 150 mg PO DAILY 02/02/22 [History] traZODone HCL 50 mg PO HS 02/02/22 [History] Insulin Aspart [NovoLOG Flexpen] See Protocol SQ AC-TID 02/28/22 [History] Follow up Appointment(s)/Referral(s): Isaiah Hadley MD [Primary Care Provider] - 1-2 days
[2022-03-05 01:58] LABS: Glucose,Whole Blood 155 mg/dL (75-99)
[2022-03-05] MEDS ORDERED: INSULIN ASPART (NovoLOG) 100 UNIT/ML VIAL SQ SCH (07:30)
== END 2022-03-05 03:46 | DRG 65 ==
LOC: EC 20:09 → 6NMEDSUR 23:42 → OBSVTOIN 03-01 14:25 → 3SCARD 03-01 16:03
PROVIDERS: ADMIT Family Medicine; ATTEND Family Medicine
DX: I63.531 Cerebral infarction due to unspecified occlusion or stenosis of right posterior cerebral artery (principal); G81.94 Hemiplegia, unspecified affecting left nondominant side; N17.9 Acute kidney failure, unspecified; E87.1 Hypo-osmolality and hyponatremia; E10.42 Type 1 diabetes mellitus with diabetic polyneuropathy; H70.92 Unspecified mastoiditis, left ear; G31.9 Degenerative disease of nervous system, unspecified; E10.65 Type 1 diabetes mellitus with hyperglycemia; E03.9 Hypothyroidism, unspecified; J44.9 Chronic obstructive pulmonary disease, unspecified; G90.1 Familial dysautonomia [Riley-Day]; Z79.4 Long term (current) use of insulin; Z89.411 Acquired absence of right great toe; Z28.310 Unvaccinated for COVID-19; R47.01 Aphasia; R29.709 NIHSS score 9; I95.1 Orthostatic hypotension; R29.810 Facial weakness; R47.1 Dysarthria and anarthria; R27.0 Ataxia, unspecified; I67.89 Other cerebrovascular disease; M79.7 Fibromyalgia; E78.5 Hyperlipidemia, unspecified; I10 Essential (primary) hypertension; M19.90 Unspecified osteoarthritis, unspecified site; K21.9 Gastro-esophageal reflux disease without esophagitis; K44.9 Diaphragmatic hernia without obstruction or gangrene; G89.29 Other chronic pain; M50.30 Other cervical disc degeneration, unspecified cervical region; M51.36 Other intervertebral disc degeneration, lumbar region; F41.9 Anxiety disorder, unspecified; F17.210 Nicotine dependence, cigarettes, uncomplicated; Z71.6 Tobacco abuse counseling; Z79.890 Hormone replacement therapy; Z79.51 Long term (current) use of inhaled steroids; Z79.899 Other long term (current) drug therapy; Z86.14 Personal history of Methicillin resistant Staphylococcus aureus infection; Z87.81 Personal history of (healed) traumatic fracture; Z86.19 Personal history of other infectious and parasitic diseases; Z90.89 Acquired absence of other organs; Z98.51 Tubal ligation status; Z87.39 Personal history of other diseases of the musculoskeletal system and connective tissue; Z90.710 Acquired absence of both cervix and uterus; Z87.42 Personal history of other diseases of the female genital tract; Z87.2 Personal history of diseases of the skin and subcutaneous tissue; Z87.448 Personal history of other diseases of urinary system; Z98.42 Cataract extraction status, left eye; Z98.41 Cataract extraction status, right eye; Z87.440 Personal history of urinary (tract) infections; Z86.73 Personal history of transient ischemic attack (TIA), and cerebral infarction without residual deficits; Z98.890 Other specified postprocedural states; Z88.2 Allergy status to sulfonamides; Z82.69 Family history of other diseases of the musculoskeletal system and connective tissue; Z82.49 Family history of ischemic heart disease and other diseases of the circulatory system
CPT/HCPCS: 36415; 70450; 70496; 70498; 70551; 71046; 80048; 80053; 80061; 81001; 83036; 84443; 84484; 85025; 85610; 93005; 93306; 95816; 96360; 96361; 99285

== ENCOUNTER 2022-11-01 09:13 | Day surgery (SDC) | payer OTHER ==
[2022-10-31 08:40] VITALS: BMI 21.6
--- NOTE | 2022-10-31 10:01 | P.HPOR ---
History of Present Illness H&P Date: 10/31/22 Chief Complaint: Right distal radius malunion, right carpal tunnel syndrome Subjective: This is a 56 year old female that presents today for follow up evaluation regarding a 2 year history of right wrist pain and deformity that occurred after a right displaced and angulated distal radius fracture on 04/23/2020 when she was at a bar and fell down the stairs injuring her right wrist. She states at that time, she did not have medical insurance and did not seek treatment after her evaluation in the emergency department and wore a wrist brace for several months. She states that she recently got medical insurance and is now seeking treatment for her injury. She states that the wrist bothers her on an everyday basis and any type of movement or weightbearing through the wrist causes pain. She has noticed a visual deformity of the wrist and states that she has daily numbness and tingling in the fingertips mainly in the thumb, index, middle and ring finger. She was scheduled for carpal tunnel release/distal radius malunion osteotomy back in February of 2022 but it had to be canceled due to the patient having a stroke in late February 2022. Physical Examination: RUE: AIN/PIN/Radial/Ulnar/Median motor intact. Radial/Ulnar/Median SILT. 2+/4 Radial/Ulnar pulses palpated. 5/5 APB, 5/5 FDI. Negative Finkelsteins, negative CMC grind, positive Durkan's compression. wrist flexion 15, wrist extension, 60. Visual deformity of wrist consisting of prominent ulnar head. Imaginv X-Rays of the right wrist reviewed from 12/23/21 in office demonstrate a healed intra-articular distal radius fracture with approximately 50 of dorsal angulation, 1 cm of ulnar positive variance and loss of radial inclination. Impression: 1.) Right distal radius malunion, symptomatic. 2.) Right carpal tunnel syndrome. Plan: Diagnosis and treatment options were discussed with the patient. The complexity of her injury and limited treatment options were discussed due to the injury being now 2-2-1/2 years out. Due to her continued pain and extreme deformity of her wrist I recommend right distal radius malunion corrective osteotomy with possible ulnar shortening osteotomy and an open right carpal tunnel release. She states that since her symptoms are now interfering with everyday life and she has constant pain and numbness she would like to go forward with surgical intervention. Risks and benefits of surgery including bleeding, damage to surrounding tissue, need for further surgery, infection, and continued pain were discussed and she was agreeable with this plan of action. We will request PCP clearance and schedule her for outpatient surgery in the near future. -Bruce Barclay DO Orthopedic Hand/Upper Extremity Surgeon Past Medical History Past Medical History: COPD, CVA/TIA, Diabetes Mellitus, Fibromyalgia, GERD/Reflux, Hyperlipidemia, Hypertension, Liver Disease, Osteoarthritis (OA), Thyroid Disorder Additional Past Medical History / Comment(s): NEUROPATHY BILATERAL FEET, DDD NECK AND LOWER BACK, hiatal hernia, states no need for BP med anymore(gets orthostatic hypotension-has "medtronic heart loop monitor"), hx hepatitis as a kid, hx fractrured left wrist, hx stroke 03/03/22-problems with balance since. History of Any Multi-Drug Resistant Organisms: MRSA Date of last positivie culture/infection: 2017 MDRO Source:: stomach Past Surgical History: Adenoidectomy, Back Surgery, Bladder Surgery, Hysterectomy, Orthopedic Surgery, Tonsillectomy, Tubal Ligation Additional Past Surgical History / Comment(s): Debridement right foot, PICC line placed and later removed, bladder suspension, exploratory laparotomy, right great toe amputation, pins right in foot, cataracts removed, left wrist ORIF, loop heart monitor placed 02/2022. Past Anesthesia/Blood Transfusion Reactions: No Reported Reaction, Motion Sickness Additional Past Anesthesia/Blood Transfusion Reaction / Comment(s): . Type of Cardiac Device: Loop Past Psychological History: Anxiety, Depression Smoking Status: Current every day smoker Past Alcohol Use History: Occasional Additional Past Alcohol Use History / Comment(s): SMOKER SINCE 1983, 1 PPD. Past Drug Use History: Marijuana Additional Drug Use History / Comment(s): Marijuana use "once a month, if that". - Past Family History Mother Family Medical History: Pulmonary Embolus Additional Family Medical History / Comment(s): . Father Additional Family Medical History / Comment(s): at 26yrs old--accident at work Medications and Allergies Home Medications Medication Instructions Recorded Confirmed Type Acetaminophen Tab [Tylenol] 1,500 mg PO DIRECTED PRN 08/20/21 10/31/22 History Fluticasone/Umeclidin/Vilanter 1 puff INHALATION QAM 08/20/21 10/31/22 History [Trelegy Ellipta 100-62.5-25] Fluticasone Nasal [place] [Flonase 1 spray EA NOSTRIL QAM 02/02/22 10/31/22 History Nasal [place]] Levothyroxine Sodium [Synthroid] 175 mcg PO QAM 02/02/22 10/31/22 History traZODone HCL 50 mg PO HS 02/02/22 10/31/22 History Aspirin [Adult Low Dose Aspirin EC] 81 mg PO DAILY 08/31/22 10/31/22 History Atorvastatin [Lipitor] 40 mg PO DAILY 08/31/22 10/31/22 History Insulin Aspart (For Pump) [NovoLOG 0.01 unit SQ-PUMP CONTINUOUS 08/31/22 10/31/22 History (For Pump)] Voltaren Gel 1% 1 applicate TOPICAL HS 08/31/22 10/31/22 History Allergies Allergy/AdvReac Type Severity Reaction Status Date / Time Sulfa (Sulfonamide Allergy Rash/Hives Verified 10/31/22 08:22 Antibiotics) Physical Examination Osteopathic Statement: *. No significant issues noted on an osteopathic structural exam other than those noted in the History and Physical/Consult.
[2022-11-01] MEDS ORDERED: SCOPOLAMINE 1 MG/72 HR PATCH TRANSDERM ONE (09:37)
[2022-11-01] MEDS ORDERED: ONDANSETRON 4 MG/2 ML VIAL IVP ONE (09:37)
[2022-11-01] MEDS ORDERED: MIDAZOLAM 2 MG/2 ML VIAL IV PRN (09:37)
[2022-11-01] MEDS ORDERED: LACTATED RINGERS 1,000 ML IV SCH (09:37)
[2022-11-01] MEDS ORDERED: HYDROmorphone 0.5 MG/0.5 ML SYRINGE IVP PRN (09:37)
[2022-11-01] MEDS ORDERED: DEXAMETHASONE SOD PHOSPHATE 4 MG/ML 1 ML VIAL IV ONE (09:37)
[2022-11-01] MEDS ORDERED: ONDANSETRON 4 MG/2 ML VIAL ONE (10:02)
[2022-11-01 10:07] LABS: Glucose,Whole Blood 184 mg/dL (70-110)
[2022-11-01] MEDS ORDERED: MIDAZOLAM 2 MG/2 ML VIAL IVP ONE (10:13)
[2022-11-01] MEDS ORDERED: fentaNYL (PF) 50 MCG/ML 2 ML AMP ONE (10:45)
[2022-11-01] MEDS ORDERED: PROPOFOL 10 MG/ML 50 ML VIAL IV ONE (10:45)
[2022-11-01] MEDS ORDERED: SUCCINYLCHOLINE CHLORIDE 200 MG/10 ML VIAL IV ONE (10:45)
[2022-11-01] MEDS ORDERED: LIDOCAINE 2% INJ 20 MG/ML (2 ML VIAL) ONE (10:45)
[2022-11-01] MEDS ORDERED: MIDAZOLAM 2 MG/2 ML VIAL ONE (10:45)
[2022-11-01] MEDS ORDERED: ceFAZolin 1,000 MG in SODIUM CHLORIDE 0.9% 1,000 ML IRRIGATION ONE (11:51)
[2022-11-01 12:07] LABS: Glucose,Whole Blood 120 mg/dL (70-110)
[2022-11-01 13:19] VITALS: TEMP 97.2
[2022-11-01 13:23] LABS: Glucose,Whole Blood 145 mg/dL (70-110)
[2022-11-01 14:27] LABS: Glucose,Whole Blood 158 mg/dL (70-110)
[2022-11-01 14:32] VITALS: BP 150/84; PULSE 87; RESP 18
--- NOTE | 2022-11-01 20:39 | P.OP ---
Date of Procedure: 11/01/22 Preoperative Diagnosis: 1.) Right distal radius fracture malunion 2.) Right carpal tunnel syndrome Postoperative Diagnosis: 1.) Right distal radius fracture malunion 2.) Right carpal tunnel syndrome Procedure(s) Performed: 1.) Right distal radius malunion osteotomy with cortico-cancellous bone allografting 2.) Right open carpal tunnel release Implants: 1.) [employer] Cortical/Cancellous bone chips 2.) Ronni/Biomet DVR crosslock distal radius plate, standard length, narrow width. [facility], regional Surgeon: Bruce Barclay Customs Investigator #1: Hever Govea Estimated Blood Loss (ml): 5 Pathology: none sent Condition: stable Disposition: PACU Description of Procedure: This is a 57 year old female who sustained a right displaced intra-articular distal radius fracture that ultimately healed in a malunited position and dev eloped subsequent pain, limited range of motion and deformity and presents today for distal radius malunion osteotomy with bone allograft for their right distal radius fracture malunion and an open carpal tunnel release for carpal tunnel syndrome. Risks and benefits of surgery were discussed with the patient including bleeding, damage to surrounding tissue, infection, need for further surgery as well as risks of anesthesia including pulmonary embolism and even and the patient wished to proceed with surgical intervention. The patients was seen in the pre-operative area by myself. Consent and H&P were completed and updated. The correct extremity was marked in the pre-operative area by myself and all other questions were answered. Operative Narrative: The patient was brought to the operating room by the department of anesthesia. They remained on the portable stretcher and a rolling hand table was brought to the side of the operative extremity. Pre-operative time out was performed indicating the correct patient, procedure and laterality. All in the room agreed. Pre-operative antibiotics were given prior to skin incision. The patient was then drifted off to sleep by the department of anesthesia. A nonsterile tourniquet was then applied to the operative extremity and the right upper extremity was then prepped and draped in normal sterile fashion. The operative extremity was the exsanguinated with an esmarch bandage and the tourniquet was inflated to 250mmHg. A longitudinal incision centered over the FCR tendon was made with a 15-blade scalpel. Blunt dissection was taken down to the FCR tendon sheath using Bovie cautery for meticulous hemostasis. The FCR sheath was opened with tenotomy scissors. The floor of the FCR sheath was then incised with a 15-blade scalpel and the FPL tendon and muscle belly was swept bluntly in an ulnar direction to reveal the pronator quadratus. Pronator quadratus was sharply incised with a 15-blade scalpel along the radial border of the distal radius, coming across transversely parallel to the joint at the level of the watershed line, radial artery was identified and protected. Periosteal elevator was then used to elevate the pronator quadratus off the distal radius from a radial to ulnar fashion. Brachioradialis tenon was released and the surrounding healed periosteum was sharply elevated with 15 blade scalpel dorsally taking care to protect the extensor tendons of the wrist and hand. Satisfied with soft tissue releases attention was then brought to the osteotomy site. Under live fluoroscopy the osteotomy line was mapped out with marking pen making the cut parallel to the joint line in both the coronal and sagittal planes. While protecting surrounding neurovascular structures the osteotomy was initiated at the site of the healed fracture. Correct angle of cut was confirmed on x-ray and after using the oscillating saw to initiate the osteotomy an osteotome was used to complete the osteotomy taking care to not damage the extensor tendons sitting directly on the dorsal cortex. After completion of the osteotomy a narrow width and standard length Ronni/biomet crosslock DVR plate was chosen to fit the patients anatomy best. This was placed on the distal radius under direct visualization and the K- wire was placed in the ulnar most k-wire hole in the distal row. Fluoroscopy was then utilized to confirm correct placement of plate in the radial/ulnar plane of the distal fragment and distal k-wire placement was confirmed to be proximal to the subchondral bone on 20 degree elevated lateral view confirming extra-articular screw placement. Distal locking screws were placed leaving the proximal portion of the plate in a kickstand position. After securing the distal rows with locking screws the proximal portion of the plate was then levered back to the radial shaft and held with a K-wire while correcting both the sagittal and coronal deformity and pulling traction. Sikhism of volar tilt and radial inclination was appreciated but the there was still significant ulnar positive variance and DRUJ widening. In order to try to gain more length the carpal tunnel portion of the case was performed to allow for additional soft tissue release. 15 blade scalpel was utilized to make a longitudinal incision on the palmar skin in line with the radial boarder of the ring finger to a point distally at the intersection of Kaplans cardinal line. Miesha retractors were utilized to spread subcutaneous tissue and scalpel was used to cut through the superficial palmar fascia to reveal the transverse carpal ligament. The transverse carpal ligament was then sharply incised in line with the incision and tenotomy scissors were used to spread distally and the distal portion of the transverse carpal ligament was released using tenotomy scissors from distal to proximal under direct visualization. The median nerve was directly visualized and was intact. Proximal fascia of the distal forearm was also released under direct visualization taking care to preserve the palmar cutaneous branch of the median nerve. After carpal tunnel release an additional 2-3mm of length was able to be achieved but still with greater than 5mm of ulnar positive variance and 5mm of DRUJ widening. Decision was made to not go forward with ulnar shortening osteotomy at this time due to the possible morbidity of doing an additional procedure at this index case. Satisfied with the radial portion of the wrist the proximal oblong shaft screw was drilled and filled with a non locking screw to bring the plate to the radius and correction of volar tilt and radial inclination was confirmed. The remainder of the proximal shaft screws were filled with bicortical locking screws. The wrist joint was the ranged and full smooth flexion/extension with no crepitus appreciated. The void at the osteotomy site was then filled with cortical cancellous bone chips and confirmed on imaging. Final imaging was taken confirming extra-articular placement of distal screws at DRUJ and radiocarpal joint. The wound was then irrigated. Subcutaneous closure was performed with 3-0 vicryl followed by skin closure with 4-0 nylon suture. Sterile dressing consisting of adaptic, 4x4s, and a volar plaster splint was applied. Tourniquet was let down and the hand had immediate perfusion. The patient was then woken by the department of anesthesia and transferred to PACU in stable condition. The patient was then woken by the department of anesthesia and transferred to PACU in stable condition. Hever SANTOS was present for the case and assisted in major portions of the operation and hardware placement. Bruce Barclay D.O. Orthopedic Hand/Upper Extremity Surgeon
--- NOTE | 2022-11-02 20:32 | P.ANPRN ---
Procedure Note - Anesthesia - Nerve Block Performed Right Supraclavicular Single Time Out Performed: Yes Date of Procedure: 11/01/24 Procedure Start Time: 10:13 Procedure Stop Time: 10:18 Location of Patient: PreOp Indication: Acute Post-Operative Pain, Requested by Surgeon Sedation Type: Sedate with meaningful contact maintained Preparation: Sterile Prep Position: Supine Needle Types: Pajunk Needle Gauge: 21 Ultrasound used to visualize needle placement: Yes Ultrasound used to observe medication spread: Yes Blood Aspirated: No Pain Paresthesia on Injection Noted: No Resistance on Injection: Normal Image Stored and Saved: Yes Events: Uneventful and Well Tolerated (Ropivacaine 0.5% 20 mL plus dexamethasone 4 mg)
== END 2022-11-01 14:57 | disposition home or self-care (01) ==
LOC: OR 09:13
PROVIDERS: ATTEND Orthopaedic Surgery Hand Surgery
DX: S52.501A Unspecified fracture of the lower end of right radius, initial encounter for closed fracture (principal); G56.01 Carpal tunnel syndrome, right upper limb; G89.18 Other acute postprocedural pain; J44.9 Chronic obstructive pulmonary disease, unspecified; E11.36 Type 2 diabetes mellitus with diabetic cataract; E78.5 Hyperlipidemia, unspecified; I10 Essential (primary) hypertension; M19.90 Unspecified osteoarthritis, unspecified site; K21.9 Gastro-esophageal reflux disease without esophagitis; F41.9 Anxiety disorder, unspecified; F32.A Depression, unspecified; F17.200 Nicotine dependence, unspecified, uncomplicated; Z90.89 Acquired absence of other organs; Z90.49 Acquired absence of other specified parts of digestive tract; Z90.710 Acquired absence of both cervix and uterus; Z86.59 Personal history of other mental and behavioral disorders; Z79.51 Long term (current) use of inhaled steroids; Z79.82 Long term (current) use of aspirin; Z79.1 Long term (current) use of non-steroidal anti-inflammatories (NSAID); Z88.2 Allergy status to sulfonamides; Z79.899 Other long term (current) drug therapy; X58.XXXA Exposure to other specified factors, initial encounter
CPT/HCPCS: 64721; 64450; 25350; 25390; J2250; J2405; J0690

== ENCOUNTER → 2023-12-08 | Outpatient (CLI) | payer MEDICARE, OTHER ==
--- NOTE | 2023-12-08 14:34 | XR ---
EXAMINATION TYPE: XR foot complete RT DATE OF EXAM: 12/08/2023 11:00 AM CLINICAL INDICATION:Female, 58 years old with history of L97.512 Non pressure chronic ulcer right eufemia t; [facility] COMPARISON: 08/20/2021 TECHNIQUE: XR foot complete RT examined in the AP, oblique, and lateral projections. FINDINGS: Left fifth metatarsal fixation screw appears intact. There is amputation of the first digit proximal phalanx. No evidence for osseous erosion. There is remote injury to the fourth metatarsal. No evidence of any acute osseous pathology. Mild multifocal degeneration changes with osteophyte form ation and joint space narrowing. IMPRESSION: 1. No evidence for osseous erosion or findings to suggest osteomyelitis. 2. No evidence of acute fracture. 3. Postsurgical changes of the first digit no evidence for osseous erosion. 4. Postoperative changes with hardware in the fifth metatarsal with hardware intact.
== END | disposition home or self-care (01) ==
LOC: RADXRMAIN 10:47
PROVIDERS: ATTEND Podiatrist
DX: L97.512 Non-pressure chronic ulcer of other part of right foot with fat layer exposed (principal); E11.621 Type 2 diabetes mellitus with foot ulcer; Z89.411 Acquired absence of right great toe; F17.210 Nicotine dependence, cigarettes, uncomplicated

== ENCOUNTER 2024-02-06 11:38 | Inpatient (IN) | payer BC, MEDICARE, OTHER ==
--- NOTE | 2024-02-06 12:19 | ED ---
General Adult HPI - General Chief complaint: Shortness of Breath Stated complaint: edema Time Seen by Provider: 02/06/24 12:04 Source: patient, police, RN notes reviewed Mode of arrival: ambulatory Limitations: no limitations - History of Present Illness Initial comments: Patient is a 58-year-old female presenting [facility] the emergency department from [facility] for edema. Patient does have history of COPD and does have associated dyspnea. Patient has gained around 10 pounds. Patient complains of swelling in her face and legs. No calf pain. No fever. Patient does have history of stage IV kidney disease. - Related Data Home Medications Medication Instructions Recorded Confirmed Levothyroxine Sodium [Synthroid] 175 mcg PO DAILY 02/02/22 02/06/24 Acetaminophen Tab [Tylenol] 650 mg PO BID PRN 02/06/24 02/06/24 Albuterol Nebulized [Ventolin 2.5 mg INHALATION RT-TID PRN 02/06/24 02/06/24 Nebulized] Atorvastatin [Lipitor] 20 mg PO HS 02/06/24 02/06/24 Ciclesonide [Alvesco] 1 puff INHALATION RT-BID 02/06/24 02/06/24 Insulin Glargine [Lantus Vial] 8 unit SQ BID 02/06/24 02/06/24 Insulin Regular [humuLIN R] 2 units SQ TID PRN 02/06/24 02/06/24 Insulin Regular [humuLIN R] See Protocol SQ QID 02/06/24 02/06/24 Ondansetron Hcl 2mg/Ml Injection 4 mg INJ ONCE PRN 02/06/24 02/06/24 Ondansetron [Zofran] 4 mg PO BID PRN 02/06/24 02/06/24 Allergies Allergy/AdvReac Type Severity Reaction Status Date / Time Sulfa (Sulfonamide Allergy see comment Verified 02/06/24 13:59 Antibiotics) Review of Systems ROS Statement: Those systems with pertinent positive or pertinent negative responses have been documented in the HPI. ROS Other: All systems not noted in ROS Statement are negative. Constitutional: Denies: fever Eyes: Denies: eye pain ENT: Denies: ear pain Respiratory: Reports: as per HPI, dyspnea Cardiovascular: Reports: edema Endocrine: Reports: fatigue Gastrointestinal: Denies: abdominal pain Genitourinary: Denies: dysuria Past Medical History Past Medical History: COPD, CVA/TIA, Diabetes Mellitus, Fibromyalgia, GERD/Reflux, Hyperlipidemia, Hypertension, Liver Disease, Osteoarthritis (OA), Thyroid Disorder Additional Past Medical History / Comment(s): NEUROPATHY BILATERAL FEET, DDD NECK AND LOWER BACK, hiatal hernia, states no need for BP med anymore(gets orthostatic hypotension-has "medtronic heart loop monitor"), hx hepatitis as a kid, hx fractrured left wrist, hx stroke 03/03/22-problems with balance since. History of Any Multi-Drug Resistant Organisms: MRSA Date of last positivie culture/infection: 2017 MDRO Source:: stomach Past Surgical History: Adenoidectomy, Back Surgery, Bladder Surgery, Hyster ectomy, Orthopedic Surgery, Tonsillectomy, Tubal Ligation Additional Past Surgical History / Comment(s): Debridement right foot, PICC line placed and later removed, bladder suspension, exploratory laparotomy, right great toe amputation, pins right in foot, cataracts removed, left wrist ORIF, loop heart monitor placed 02/2022. Past Anesthesia/Blood Transfusion Reactions: No Reported Reaction, Motion Sickness Additional Past Anesthesia/Blood Transfusion Reaction / Comment(s): . Type of Cardiac Device: Loop Past Psychological History: Anxiety, Depression Smoking Status: Current every day smoker Past Alcohol Use History: Occasional Past Drug Use History: Marijuana - Past Family History Mother Family Medical History: Pulmonary Embolus Additional Family Medical History / Comment(s): . Father Additional Family Medical History / Comment(s): at 26yrs old--accident at work General Exam Limitations: no limitations General appearance: alert, in no apparent distress Head exam: Present: normocephalic Eye exam: Present: normal appearance Neck exam: Present: normal inspection Respiratory exam: Present: wheezes Cardiovascular Exam: Present: regular rate, normal rhythm, normal heart sounds GI/Abdominal exam: Present: soft. Absent: tenderness Extremities exam: Present: pedal edema. Absent: calf tenderness Neurological exam: Present: alert Psychiatric exam: Present: normal affect, normal mood Skin exam: Present: normal color Course Vital Signs 02/06/24 02/06/24 02/06/24 11:55 13:03 13:11 Temperature 97.6 F Pulse Rate 95 91 91 Respiratory 18 Rate Blood Pressure 103/56 O2 Sat by Pulse 97 Oximetry EKG Findings - EKG Results: EKG: interpreted by ERMD (Left bundle branch block.), sinus rhythm, normal axis, normal ST/T Medical Decision Making - Medical Decision Making Was pt. sent in by a medical professional or institution (TOM Olson, SPECIAL EFFECTS DESIGNER, urgent care, hospital, or custodial...) When possible be specific @ -Patient presents from [facility] Did you speak to anyone other than the patient for history (EMS, parent, family, police, friend...)? What history was obtained from this source @ -No Did you review nursing and triage notes (agree or disagree)? Why? @ -I reviewed and agree with nursing and triage notes Were old charts reviewed (outside hosp., previous admission, EMS record, old EKG, old radiological studies, urgent care reports/EKG's, custodial records)? Report findings @ -No old charts were reviewed Differential Diagnosis (chest pain, altered mental status, abdominal pain women, abdominal pain men, vaginal bleeding, weakness, fever, dyspnea, syncope, headache, dizziness, GI bleed, back pain, seizure, CVA, palpatations, mental health, musculoskeletal)? @ -MDM differential distal EKG interpreted by me (3pts min.). @ -As above X-rays interpreted by me (1pt min.). @ -Chest x-ray concerning for CHF CT interpreted by me (1pt min.). @ -None done U/S interpreted by me (1pt. min.). @ -None done What testing was considered but not performed or refused? (CT, X-rays, U/S, labs)? Why? @ -None What meds were considered but not given or refused? Why? @ -None Did you discuss the management of the patient with other professionals (pr ofessionals i.e. TOM Olson, SPECIAL EFFECTS DESIGNER, lab, RT, psych nurse, foster care social worker, vending machine assembler, teacher, chief sustainability officer, therapeutic case manager)? Give summary @ -[facility] will admit covering hospital call Was smoking cessation discussed for >3mins.? @ -No Was critical care preformed (if so, how long)? @ -32 minutes critical care time Were there social determinants of health that impacted care today? How? (Homelessness, low income, unemployed, alcoholism, drug addiction, transportation, low edu. Level, literacy, decrease access to med. care, [facility], rehab)? @ -No Was there de-escalation of care discussed even if they declined (Discuss DNR or withdrawal of care, Hospice)? DNR status @ -No What co-morbidities impacted this encounter? (DM, HTN, Smoking, COPD, CAD, Cancer, CVA, ARF, Chemo, Hep., AIDS, mental health diagnosis, sleep apnea, morbid obesity)? @ -None Was patient admitted / discharged? Hospital course, mention meds given and route, prescriptions, significant lab abnormalities, going to OR and other pertinent info. @ -Patient reevaluated and updated. Patient presents with CHF symptoms. There is also concern for cardiac stress versus non-ST elevation CT. Patient will be admitted with cardiac consultation. Admission orders written. Undiagnosed new problem with uncertain prognosis? @ -No Drug Therapy requiring intensive monitoring for toxicity (Heparin, Nitro, Insulin, Cardizem)? @ -No Were any procedures done? @ -No Diagnosis/symptom? @ -CHF, non-ST elevation CT Acute, or Chronic, or Acute on Chronic? @ -Acute, acute Uncomplicated (without systemic symptoms) or Complicated (systemic symptoms)? @ -Complicated with anemia Side effects of treatment? @ -No Exacerbation, Progression, or Severe Exacerbation? @ -No Poses a threat to life or bodily function? How? (Chest pain, USA, CT, pneumonia, PE, COPD, DKA, ARF, appy, cholecystitis, CVA, Diverticulitis, Homicidal, Suicidal, threat to staff... and all critical care pts) @ -Threat to cardiac and pulmonary function and life - Lab Data Result diagrams: 02/06/24 12:35 02/06/24 12:35 Lab Results 02/06/24 02/06/24 02/06/24 Range/Units 12:35 12:35 12:35 WBC 7.1 (3.8-10.6) k/uL RBC 2.56 L (3.80-5.40) m/uL Hgb 7.7 L (11.4-16.0) gm/dL Hct 23.6 L (34.0-46.0) % MCV 92.3 (80.0-100.0) fL MCH 30.1 (25.0-35.0) pg MCHC 32.6 (31.0-37.0) g/dL RDW 12.1 (11.5-15.5) % Plt Count 314 (150-450) k/uL MPV 8.0 Neutrophils % 66 % Lymphocytes % 21 % Monocytes % 7 % Eosinophils % 1 % Basophils % 0 % Neutrophils # 4.7 (1.3-7.7) k/uL Lymphocytes # 1.5 (1.0-4.8) k/uL Monocytes # 0.5 (0-1.0) k/uL Eosinophils # 0.1 (0-0.7) k/uL Basophils # 0.0 (0-0.2) k/uL PT 9.7 L (10.0-12.5) sec INR 0.9 (<1.2) APTT 26.9 (22.0-30.0) sec Sodium 133 L (137-145) mmol/L Potassium 4.9 (3.5-5.1) mmol/L Chloride 107 (98-107) mmol/L Carbon Dioxide 22 (22-30) mmol/L Anion Gap 4 mmol/L BUN 56 H (7-17) mg/dL Creatinine 2.73 H (0.52-1.04) mg/dL Est GFR (CKD-EPI)AfAm 21 (>60 ml/min/1.73 sqM) Est GFR (CKD-EPI)NonAf 18 (>60 ml/min/1.73 sqM) Glucose 101 H (74-99) mg/dL Plasma Lactic Acid Ketan (0.7-2.0) mmol/L Calcium 8.0 L (8.4-10.2) mg/dL Magnesium 2.1 (1.6-2.3) mg/dL Total Bilirubin 0.2 (0.2-1.3) mg/dL AST 62 H (14-36) U/L ALT 40 H (4-34) U/L Alkaline Phosphatase 158 H (38-126) U/L Troponin I (0.000-0.034) ng/mL NT-Pro-B Natriuret Pep 18129 pg/mL Total Protein 5.1 L (6.3-8.2) g/dL Albumin 2.2 L (3.5-5.0) g/dL 02/06/24 02/06/24 Range/Units 12:35 12:35 WBC (3.8-10.6) k/uL RBC (3.80-5.40) m/uL Hgb (11.4-16.0) gm/dL Hct (34.0-46.0) % MCV (80.0-100.0) fL MCH (25.0-35.0) pg MCHC (31.0-37.0) g/dL RDW (11.5-15.5) % Plt Count (150-450) k/uL MPV Neutrophils % % Lymphocytes % % Monocytes % % Eosinophils % % Basophils % % Neutrophils # (1.3-7.7) k/uL Lymphocytes # (1.0-4.8) k/uL Monocytes # (0-1.0) k/uL Eosinophils # (0-0.7) k/uL Basophils # (0-0.2) k/uL PT (10.0-12.5) sec INR (<1.2) APTT (22.0-30.0) sec Sodium (137-145) mmol/L Potassium (3.5-5.1) mmol/L Chloride (98-107) mmol/L Carbon Dioxide (22-30) mmol/L Anion Gap mmol/L BUN (7-17) mg/dL Creatinine (0.52-1.04) mg/dL Est GFR (CKD-EPI)AfAm (>60 ml/min/1.73 sqM) Est GFR (CKD-EPI)NonAf (>60 ml/min/1.73 sqM) Glucose (74-99) mg/dL Plasma Lactic Acid Ketan 0.9 (0.7-2.0) mmol/L Calcium (8.4-10.2) mg/dL Magnesium (1.6-2.3) mg/dL Total Bilirubin (0.2-1.3) mg/dL AST (14-36) U/L ALT (4-34) U/L Alkaline Phosphatase (38-126) U/L Troponin I 1.290 H* (0.000-0.034) ng/mL NT-Pro-B Natriuret Pep pg/mL Total Protein (6.3-8.2) g/dL Albumin (3.5-5.0) g/dL Critical Care Time Critical Care Time: Yes Disposition Clinical Impression: Congestive heart failure, NSTEMI (non-ST elevated myocardial infarction) Disposition: ADMITTED IP TO THIS HOSP Condition: Serious Is patient prescribed a controlled substance at d/c from ED?: No Referrals: None,Stated [Primary Care Provider] - 1-2 days Time of Disposition: 14:33
[2024-02-06 12:48] LABS: Basophils % (A) 0 %; Eosinophils # (A) 0.1 k/uL (0-0.7); Eosinophils % (A) 1 %; HCT 23.6 % (34.0-46.0); HGB 7.7 gm/dL (11.4-16.0); Lymphocytes # (A) 1.5 k/uL (1.0-4.8); Lymphocytes % (A) 21 %; MCH 30.1 pg (25.0-35.0); MCHC 32.6 g/dL (31.0-37.0); MCV 92.3 fL (80.0-100.0); Monocytes # (A) 0.5 k/uL (0-1.0); Monocytes % (A) 7 %; Neutrophils # (A) 4.7 k/uL (1.3-7.7); Neutrophils % (A) 66 %; Platelet Count 314 k/uL (150-450); RBC 2.56 m/uL (3.80-5.40); RDW 12.1 % (11.5-15.5); WBC 7.1 k/uL (3.8-10.6)
[2024-02-06] MEDS: IPRATROPIUM-ALBUTEROL 3 ML NEB INHALATION STA (13:03)
[2024-02-06 13:04] LABS: INR 0.9 (<1.2); Partial Thromboplastin Time 26.9 sec (22.0-30.0); Prothrombin Time 9.7 sec (10.0-12.5)
--- NOTE | 2024-02-06 13:07 | XR ---
EXAMINATION TYPE: XR chest 2V DATE OF EXAM: 02/06/2024 COMPARISON: 02/28/2022 TECHNIQUE: PA and lateral views submitted. HISTORY: Shortness of breath FINDINGS: Bilateral consolidation and small effusion with diffuse interstitial pattern. Diffuse osteopenia. Art hropathy of the shoulders. Loop recorder device seen. Degenerative change of the spine. No pneumothor ax. Underlying COPD. Pleural effusion on the lateral view may be somewhat loculated. IMPRESSION: 1. Constellation of findings favors CHF over pneumonia correlate clinically.
[2024-02-06 13:33] LABS: ALT 40 U/L (4-34); AST 62 U/L (14-36); African American GFR (CKD) 21 (>60 ml/min/1.73 sqM); Albumin 2.2 g/dL (3.5-5.0); Alkaline Phosphatase 158 U/L (38-126); Anion Gap 4 mmol/L; Blood Urea Nitrogen 56 mg/dL (7-17); Carbon Dioxide 22 mmol/L (22-30); Chloride 107 mmol/L (98-107); Glucose 101 mg/dL (74-99); Magnesium 2.1 mg/dL (1.6-2.3); Non-African American GFR(CKD) 18 (>60 ml/min/1.73 sqM); Potassium 4.9 mmol/L (3.5-5.1); Sodium 133 mmol/L (137-145); Total Bilirubin 0.2 mg/dL (0.2-1.3); Total Protein 5.1 g/dL (6.3-8.2)
[2024-02-06 14:20] LABS: NT-Pro-B-Type Natriuretic Pept 25100 pg/mL
[2024-02-06] MEDS ORDERED: INSULIN REGULAR 100 UNIT/ML VIAL (IV) SQ PRN (14:30)
[2024-02-06] MEDS: ASPIRIN 325 MG TAB PO STA (15:04)
[2024-02-06] MEDS: FUROSEMIDE 10 MG/ML 4 ML VIAL IV SCH (15:04)
[2024-02-06] MEDS: NITROGLYCERIN OINT 1 INCH/GM PACKET TOPICAL SCH (15:04)
[2024-02-06] MEDS: HEPARIN SODIUM 1,000 UN/ML (10ML VL) IV ONE (15:05)
[2024-02-06] MEDS: HEPARIN SOD,PORK IN 0.45% NACL 25,000 UNIT in 0.45% NACL 1 250ML.BAG IV SCH (15:06)
[2024-02-06 18:37] LABS: Glucose,Whole Blood 98 mg/dL (70-110)
[2024-02-06] MEDS: ATORVASTATIN 20 MG TAB PO SCH (20:11)
[2024-02-06] MEDS: ACETAMINOPHEN TAB 325 MG TAB PO PRN (20:23)
[2024-02-06] MEDS: FLUTICASONE 110 MCG INHALER INHALATION SCH (20:32)
[2024-02-06 20:53] LABS: Glucose,Whole Blood 220 mg/dL (70-110)
[2024-02-06] MEDS: INSULIN DETEMIR (LEVEMIR) 100 UNIT/ML SYR SQ SCH (20:54)
[2024-02-07] MEDS: HEPARIN SODIUM 1,000 UN/ML (10ML VL) IV PRN (00:56)
[2024-02-07] MEDS: DEXTROSE 50% SYRINGE 50 ML IVP STA (03:42)
[2024-02-07 03:43] LABS: Glucose,Whole Blood 48 mg/dL (70-110)
[2024-02-07 03:57] LABS: Glucose,Whole Blood 167 mg/dL (70-110)
[2024-02-07 06:48] LABS: Glucose,Whole Blood 69 mg/dL (70-110)
[2024-02-07 07:31] LABS: Glucose,Whole Blood 61 mg/dL (70-110)
[2024-02-07] MEDS: INSULIN ASPART (NovoLOG) 100 UNIT/ML VIAL SQ SCH (07:33)
[2024-02-07] MEDS: DEXTROSE 50% SYRINGE 50 ML IVP PRN (07:40)
[2024-02-07] MEDS: LEVOTHYROXINE 88 MCG TAB PO SCH (07:51)
[2024-02-07] MEDS: FAMOTIDINE 20 MG/2 ML VIAL IV SCH (08:00)
[2024-02-07] MEDS: ASPIRIN 325 MG TAB PO SCH (08:03)
[2024-02-07 08:08] LABS: Glucose,Whole Blood 97 mg/dL (70-110)
--- NOTE | 2024-02-07 08:16 | P.HPIM ---
History of Present Illness This is a pleasant 58 years old female with past medical history of multiple medical problems as below She has been incarcerated for 52 days, there is officer at bedside. Patient presents because of shortness of breath and exertional dyspnea has for the last 2 days, she states she hears herself wheezing when she lies down. Currently she is breathing quietly. She is complaining for mild chest pain on the left side, nonradiating nonspecific, feels much better now and very mild. She has occasional cough but no phlegm. Also she is complaining from upset stomach but no diarrhea or vomiting She complains from decreased urination but no dysuria or urgency. She has mild headache feels generally weak but no dizziness or blurry vision. She used to smoke half pack per day before she got incarcerated No alcohol or illicit drugs. She follow-up with her glass cutter helper Dr. Donal Herrera and manager business Dr. Babb who examined her about 2 months ago where she has some mild ulcer In the bottom of her right total This morning patient has low-grade fever 100.2 She is also mildly tachypneic around 22 She is saturating 93% on 2 L oxygen via nasal cannula Labs reviewed showing hemoglobin of 7.7, rest of CBC is unremarkable BMP liver enzymes not elevated. INR 0.9. Lactic 0.9 proBNP is elevated 25 100 EKG showing sinus rhythm at [address]-T changes, no left bundle branch block Past Medical History Past Medical History: COPD, CVA/TIA, Diabetes Mellitus, Fibromyalgia, GERD/Reflux, Hyperlipidemia, Hypertension, Liver Disease, Osteoarthritis (OA), Thyroid Disorder Additional Past Medical History / Comment(s): NEUROPATHY BILATERAL FEET, DDD NECK AND LOWER BACK, hiatal hernia, states no need for BP med anymore(gets ortho static hypotension-has "medtronic heart loop monitor"), hx hepatitis as a kid, hx fractrured left wrist, hx stroke 03/03/22-problems with balance since. History of Any Multi-Drug Resistant Organisms: MRSA Date of last positivie culture/infection: 2017 MDRO Source:: stomach Past Surgical History: Adenoidectomy, Back Surgery, Bladder Surgery, Hysterectomy, Orthopedic Surgery, Tonsillectomy, Tubal Ligation Additional Past Surgical History / Comment(s): Debridement right foot, PICC line placed and later removed, bladder suspension, exploratory laparotomy, right great toe amputation, pins right in foot, cataracts removed, left wrist ORIF, loop heart monitor placed 02/2022. Past Anesthesia/Blood Transfusion Reactions: No Reported Reaction, Motion S ickness Additional Past Anesthesia/Blood Transfusion Reaction / Comment(s): . Type of Cardiac Device: Loop Past Psychological History: Anxiety, Depression Smoking Status: Current every day smoker Past Alcohol Use History: Occasional Past Drug Use History: Marijuana - Past Family History Mother Family Medical History: Pulmonary Embolus Additional Family Medical History / Comment(s): . Father Additional Family Medical History / Comment(s): at 26yrs old--accident at work Medications and Allergies Home Medications Medication Instructions Recorded Confirmed Type Levothyroxine Sodium [Synthroid] 175 mcg PO DAILY 02/02/22 02/06/24 History Acetaminophen Tab [Tylenol] 650 mg PO BID PRN 02/06/24 02/06/24 History Albuterol Nebulized [Ventolin 2.5 mg INHALATION RT-TID PRN 02/06/24 02/06/24 History Nebulized] Atorvastatin [Lipitor] 20 mg PO HS 02/06/24 02/06/24 History Ciclesonide [Alvesco] 1 puff INHALATION RT-BID 02/06/24 02/06/24 History Insulin Glargine [Lantus Vial] 8 unit SQ BID 02/06/24 02/06/24 History Insulin Regular [humuLIN R] 2 units SQ TID PRN 02/06/24 02/06/24 History Insulin Regular [humuLIN R] See Protocol SQ QID 02/06/24 02/06/24 History Ondansetron Hcl 2mg/Ml Injection 4 mg INJ ONCE PRN 02/06/24 02/06/24 History Ondansetron [Zofran] 4 mg PO BID PRN 02/06/24 02/06/24 History Allergies Allergy/AdvReac Type Severity Reaction Status Date / Time Sulfa (Sulfonamide Allergy see comment Verified 02/06/24 13:59 Antibiotics) Physical Exam Vitals: Vital Signs Temp Pulse Resp BP Pulse Ox 02/07/24 00:00 99 21 125/63 94 L 02/06/24 18:25 95 18 102/58 94 L 02/06/24 15:00 96 18 122/71 95 02/06/24 13:11 91 02/06/24 13:03 91 02/06/24 11:55 97.6 F 95 18 103/56 97 Intake and Output 02/06/24 02/07/24 02/07/24 22:59 06:59 14:59 Intake Total 85.638 Output Total 113 Balance -113 85.638 Intake: Intake, IV Titration 85.638 Amount Heparin Sod,Pork in 0.45% 85.638 NaCl 25,000 unit In 0.45 % NaCl 1 250ml.bag @ 12 UNITS/KG/HR 8.709 mls/hr IV .Q24H [facility] Rx#: [id number] Output: Post Void Residual 113 Results CBC & Chem 7: 02/06/24 12:35 02/06/24 12:35 Labs: Abnormal Lab Results - Last 24 Hours (Table) 02/06/24 02/06/24 02/06/24 Range/Units 12:35 12:35 12:35 RBC 2.56 L (3.80-5.40) m/uL Hgb 7.7 L (11.4-16.0) gm/dL Hct 23.6 L (34.0-46.0) % PT 9.7 L (10.0-12.5) sec APTT (22.0-30.0) sec Sodium 133 L (137-145) mmol/L BUN 56 H (7-17) mg/dL Creatinine 2.73 H (0.52-1.04) mg/dL Glucose 101 H (74-99) mg/dL POC Glucose (mg/dL) (70-110) mg/dL Calcium 8.0 L (8.4-10.2) mg/dL AST 62 H (14-36) U/L ALT 40 H (4-34) U/L Alkaline Phosphatase 158 H (38-126) U/L Troponin I (0.000-0.034) ng/mL Total Protein 5.1 L (6.3-8.2) g/dL Albumin 2.2 L (3.5-5.0) g/dL 02/06/24 02/06/24 02/06/24 Range/Units 12:35 14:46 18:10 RBC (3.80-5.40) m/uL Hgb (11.4-16.0) gm/dL Hct (34.0-46.0) % PT (10.0-12.5) sec APTT (22.0-30.0) sec Sodium (137-145) mmol/L BUN (7-17) mg/dL Creatinine (0.52-1.04) mg/dL Glucose (74-99) mg/dL POC Glucose (mg/dL) (70-110) mg/dL Calcium (8.4-10.2) mg/dL AST (14-36) U/L ALT (4-34) U/L Alkaline Phosphatase (38-126) U/L Troponin I 1.290 H* 1.760 H* 2.210 H* (0.000-0.034) ng/mL Total Protein (6.3-8.2) g/dL Albumin (3.5-5.0) g/dL 02/06/24 02/06/24 02/07/24 Range/Units 20:34 20:52 03:37 RBC (3.80-5.40) m/uL Hgb (11.4-16.0) gm/dL Hct (34.0-46.0) % PT (10.0-12.5) sec APTT 36.6 H (22.0-30.0) sec Sodium (137-145) mmol/L BUN (7-17) mg/dL Creatinine (0.52-1.04) mg/dL Glucose (74-99) mg/dL POC Glucose (mg/dL) 220 H 48 L (70-110) mg/dL Calcium (8.4-10.2) mg/dL AST (14-36) U/L ALT (4-34) U/L Alkaline Phosphatase (38-126) U/L Troponin I (0.000-0.034) ng/mL Total Protein (6.3-8.2) g/dL Albumin (3.5-5.0) g/dL 02/07/24 02/07/24 Range/Units 03:55 06:47 RBC (3.80-5.40) m/uL Hgb (11.4-16.0) gm/dL Hct (34.0-46.0) % PT (10.0-12.5) sec APTT (22.0-30.0) sec Sodium (137-145) mmol/L BUN (7-17) mg/dL Creatinine (0.52-1.04) mg/dL Glucose (74-99) mg/dL POC Glucose (mg/dL) 167 H 69 L (70-110) mg/dL Calcium (8.4-10.2) mg/dL AST (14-36) U/L ALT (4-34) U/L Alkaline Phosphatase (38-126) U/L Troponin I (0.000-0.034) ng/mL Total Protein (6.3-8.2) g/dL Albumin (3.5-5.0) g/dL Assessment and Plan Assessment: Acute CHF exacerbation, unknown ejection fraction Chest pain with elevated troponin suspicious for non-STEMI New left bundle branch block Mild hypoxic respiratory failure Diabetes mellitus with hyperglycemia Low-grade fever Nicotine dependence 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 for cardiology procedure and she is hypoglycemic twice 48 and 61. Labs and medication were reviewed.. Continue same treatment. Continue with s ymptomatic treatment. Resume home medication. Monitor labs and vitals. DVT and GI prophylaxis. Further recommendations as per clinical course of the patient DVT prophylaxis: heparin GI Prophylaxis: Pepcid Prognosis is guarded
[2024-02-07 08:24] LABS: Basophils # (A) 0.1 k/uL (0-0.2); Basophils % (A) 1 %; Eosinophils # (A) 0.1 k/uL (0-0.7); Eosinophils % (A) 2 %; HCT 22.7 % (34.0-46.0); HGB 7.1 gm/dL (11.4-16.0); Hypochromasia Slight; Lymphocytes # (A) 1.6 k/uL (1.0-4.8); Lymphocytes % (A) 25 %; MCH 30.9 pg (25.0-35.0); MCHC 31.5 g/dL (31.0-37.0); Mean Platelet Volume 7.6; Monocytes # (A) 0.5 k/uL (0-1.0); Monocytes % (A) 7 %; Neutrophils # (A) 3.8 k/uL (1.3-7.7); Neutrophils % (A) 61 %; Platelet Count 300 k/uL (150-450); RBC 2.31 m/uL (3.80-5.40); RDW 12.1 % (11.5-15.5); WBC 6.2 k/uL (3.8-10.6)
[2024-02-07 08:26] LABS: Prothrombin Time 10.7 sec (10.0-12.5)
[2024-02-07 08:29] LABS: ALT 35 U/L (4-34); AST 55 U/L (14-36); African American GFR (CKD) 19 (>60 ml/min/1.73 sqM); Albumin 2.1 g/dL (3.5-5.0); Alkaline Phosphatase 145 U/L (38-126); Anion Gap 2 mmol/L; Blood Urea Nitrogen 56 mg/dL (7-17); Calcium 7.8 mg/dL (8.4-10.2); Carbon Dioxide 21 mmol/L (22-30); Chloride 110 mmol/L (98-107); Glucose 51 mg/dL (74-99); MCV 98.1 fL (80.0-100.0); Non-African American GFR(CKD) 17 (>60 ml/min/1.73 sqM); Potassium 4.9 mmol/L (3.5-5.1); Sodium 133 mmol/L (137-145); Total Bilirubin 0.2 mg/dL (0.2-1.3); Total Protein 4.8 g/dL (6.3-8.2)
[2024-02-07] MEDS ORDERED: ASPIRIN 81 MG PO SCH (09:00)
[2024-02-07 09:20] LABS: Glucose,Whole Blood 69 mg/dL (70-110)
--- NOTE | 2024-02-07 09:22 | P.CRDCN ---
History of Present Illness History of present illness: HISTORY OF PRESENT ILLNESS: This is a 58-year-old female with a past medical history significant for former nicotine dependence, hypertension, CVA, hypothyroidism, and diabetes. Patient gayle vaughans in the office with Dr. Saunders and was last seen in May 2023. We have been asked to see the patient in consultation for non-STEMI and CHF. Patient examined at the bedside in the emergency room. Patient is currently incarcerated and there is a recruitment coordinator at the bedside. Patient states she has been feeling short of breath and feeling weak. She states this started about 2 days ago. She states that she was in court and afterwards they had to use a wheelchair to get her back into the vehicle as she was too weak to walk. She also reports feeling dizzy and having pounding in her chest. She reports a slight cough. She denied having a fever previously to her knowledge. However patient was febrile this morning with a temperature of 100.2. She also reports lower extremity edema that started in the middle of December. She reports nausea yesterday that was relieved with Zofran. Patient was found to be anemic on admission with a hemoglobin of 7.7. Repeat 7.1. Last hemoglobin was back in 2021 but was normal at 12.3. The patient denies a history of anemia. Unsure if this anemia is new or has been present for a while as her last blood work was not since 2021. She denies any blood in her stool or urine. She does report decreased urine output. Patient was also found to have acute kidney injury with a creatinine of 2.96. Back in 2021, patient's kidney function was within normal limits. Patient was also found to have elevated troponins and was started on IV heparin. She denied having any chest pain or pressure. Patient is a former cigarette smoker and has not smoked in 55 days since being in halfway. She denies alcohol abuse many years ago but nothing recently. She denies drug use including marijuana. DIAGNOSTICS: - EKG reveals sinus mechanism with left bundle branch block. - Chest xray consolation of findings favor CHF over pneumonia. Correlate clinically. Underlying COPD. Loop recorder device seen. Bilateral consolidation and small effusion with diffuse interstitial pattern.. - Laboratory data: WBC 6.2. Hemoglobin 7.1. Platelet count 300. Sodium 133. Potassium 4.9. BUN 56. Creatinine 2.96. AST 55. ALT 35. proBNP 25,100. Troponin 1.290. 1.760. 2.210. - Current home cardiac medications include Lipitor 20 mg at night. - Most recent echocardiogram obtained in February 2022 revealed ejection fraction 55 to 60%, mild MR, mild TR - Patient underwent dobutamine stress test in March 2023 at the office which was negative for ischemia REVIEW OF SYSTEMS: At the time of my exam: CONSTITUTIONAL: Denies fever or chills. HEENT: Denies blurred vision, vision changes, or eye pain. Denies hemoptysis CARDIOVASCULAR: Denies chest pain. Denies orthopnea. Denies PND. Denies palpitations RESPIRATORY: Denies shortness of breath. GASTROINTESTINAL: Denies abdominal pain. Denies nausea or vomiting. HEMATOLOGIC: Denies bleeding disorders. GENITOURINARY: Denies any blood in urine. SKIN: Denies pruitis. Denies rash. PHYSICAL EXAM: VITAL SIGNS: Reviewed. GENERAL: Well-developed in no acute distress. HEENT: Head is normocephalic. Pupils are equal, round. Sclerae anicteric. Mucous membranes of the mouth are moist. Neck supple. No JVD or thyromegaly LUNGS: Respirations even and unlabored. Lungs essentially clear to auscultation bilaterally. HEART: Regular rate and rhythm. S1 and S2 heard. ABDOMEN: Soft. Nondistended. Nontender. EXTREMITIES: Normal range of motion. No clubbing or cyanosis. Peripheral pulses intact. 2+ bilateral lower extremity edema NEUROLOGIC: Awake and alert. Oriented x 3. ASSESSMENT: Febrile illness Shortness of breath Acute heart failure, type unknown, echo pending, EF previously 55-60% in 2021 Non-STEMI Left bundle branch block Acute kidney injury, renal function was fairly normal in 2021 Anemia, acute anemia versus anemia of chronic disease due to renal failure, duration of anemia/EDWINA unknown History of hypertension History of CVA x 2 Diabetes Hypothyroidism Former nicotine dependence Minimally elevated LFTs PLAN: Obtain 2D echo to assess cardiac structure and function Discontinue IV heparin secondary to significant anemia Consult GI for further evaluation of anemia. 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 Signing provider agrees with the documented findings, assessment, and plan of care documented by FIELD LABORER as a scribe. Past Medical History Past Medical History: COPD, CVA/TIA, Diabetes Mellitus, Fibromyalgia, GERD/Reflux, Hyperlipidemia, Hypertension, Liver Disease, Osteoarthritis (OA), Thyroid Disorder Additional Past Medical History / Comment(s): NEUROPATHY BILATERAL FEET, DDD NECK AND LOWER BACK, hiatal hernia, states no need for BP med anymore(gets orthostatic hypotension-has "medtronic heart loop monitor"), hx hepatitis as a kid, hx fractrured left wrist, hx stroke 03/03/22-problems with balance since. History of Any Multi-Drug Resistant Organisms: MRSA Date of last positivie culture/infection: 2017 MDRO Source:: stomach Past Surgical History: Adenoidectomy, Back Surgery, Bladder Surgery, Hysterectomy, Orthopedic Surgery, Tonsillectomy, Tubal Ligation Additional Past Surgical History / Comment(s): Debridement right foot, PICC line placed and later removed, bladder suspension, exploratory laparotomy, right great toe amputation, pins right in foot, cataracts removed, left wrist ORIF, loop heart monitor placed 02/2022. Past Anesthesia/Blood Transfusion Reactions: No Reported Reaction, Motion Sickness Additional Past Anesthesia/Blood Transfusion Reaction / Comment(s): . Type of Cardiac Device: Loop Past Psychological History: Anxiety, Depression Smoking Status: Current every day smoker Past Alcohol Use History: Occasional Past Drug Use History: Marijuana - Past Family History Mother Family Medical History: Pulmonary Embolus Additional Family Medical History / Comment(s): . Father Additional Family Medical History / Comment(s): at 26yrs old--accident at work Medications and Allergies Home Medications Medication Instructions Recorded Confirmed Type Levothyroxine Sodium [Synthroid] 175 mcg PO DAILY 02/02/22 02/06/24 History Acetaminophen Tab [Tylenol] 650 mg PO BID PRN 02/06/24 02/06/24 History Albuterol Nebulized [Ventolin 2.5 mg INHALATION RT-TID PRN 02/06/24 02/06/24 History Nebulized] Atorvastatin [Lipitor] 20 mg PO HS 02/06/24 02/06/24 History Ciclesonide [Alvesco] 1 puff INHALATION RT-BID 02/06/24 02/06/24 History Insulin Glargine [Lantus Vial] 8 unit SQ BID 02/06/24 02/06/24 History Insulin Regular [humuLIN R] 2 units SQ TID PRN 02/06/24 02/06/24 History Insulin Regular [humuLIN R] See Protocol SQ QID 02/06/24 02/06/24 History Ondansetron Hcl 2mg/Ml Injection 4 mg INJ ONCE PRN 02/06/24 02/06/24 History Ondansetron [Zofran] 4 mg PO BID PRN 02/06/24 02/06/24 History Allergies Allergy/AdvReac Type Severity Reaction Status Date / Time Sulfa (Sulfonamide Allergy see comment Verified 02/06/24 13:59 Antibiotics) Physical Exam Vitals: Vital Signs Temp Pulse Resp BP Pulse Ox 02/07/24 08:51 95 02/07/24 07:44 100.2 F H 100 22 124/68 93 L 02/07/24 00:00 99 21 125/63 94 L 02/06/24 18:25 95 18 102/58 94 L 02/06/24 15:00 96 18 122/71 95 02/06/24 13:11 91 02/06/24 13:03 91 02/06/24 11:55 97.6 F 95 18 103/56 97 Intake and Output 02/06/24 02/07/24 02/07/24 22:59 06:59 14:59 Intake Total 85.638 Output Total 113 Balance -113 85.638 Intake: Intake, IV Titration 85.638 Amount Heparin Sod,Pork in 0.45% 85.638 NaCl 25,000 unit In 0.45 % NaCl 1 250ml.bag @ 12 UNITS/KG/HR 8.709 mls/hr IV .Q24H [facility] Rx#: [id number] Output: Post Void Residual 113 Results 02/07/24 07:16 02/07/24 07:16 Cardiac Enzymes 02/06/24 02/06/24 02/06/24 Range/Units 12:35 12:35 14:46 AST 62 H (14-36) U/L Troponin I 1.290 H* 1.760 H* (0.000-0.034) ng/mL 02/06/24 02/07/24 Range/Units 18:10 07:16 AST 55 H (14-36) U/L Troponin I 2.210 H* (0.000-0.034) ng/mL Coagulation 02/06/24 02/06/24 02/07/24 Range/Units 12:35 20:34 07:16 PT 9.7 L 10.7 (10.0-12.5) sec APTT 26.9 36.6 H (22.0-30.0) sec CBC 02/06/24 02/07/24 Range/Units 12:35 07:16 WBC 7.1 6.2 (3.8-10.6) k/uL RBC 2.56 L 2.31 L (3.80-5.40) m/uL Hgb 7.7 L 7.1 L (11.4-16.0) gm/dL Hct 23.6 L 22.7 L (34.0-46.0) % Plt Count 314 300 (150-450) k/uL Comprehensive Metabolic Panel 02/06/24 02/07/24 Range/Units 12:35 07:16 Sodium 133 L 133 L (137-145) mmol/L Potassium 4.9 4.9 (3.5-5.1) mmol/L Chloride 107 110 H (98-107) mmol/L Carbon Dioxide 22 21 L (22-30) mmol/L BUN 56 H 56 H (7-17) mg/dL Creatinine 2.73 H 2.96 H (0.52-1.04) mg/dL Glucose 101 H 51 L (74-99) mg/dL Calcium 8.0 L 7.8 L (8.4-10.2) mg/dL AST 62 H 55 H (14-36) U/L ALT 40 H 35 H (4-34) U/L Alkaline Phosphatase 158 H 145 H (38-126) U/L Total Protein 5.1 L 4.8 L (6.3-8.2) g/dL Albumin 2.2 L 2.1 L (3.5-5.0) g/dL Current Medications Generic Name Dose Route Start Last Admin Trade Name Freq PRN Reason Stop Dose Admin Acetaminophen 650 mg 02/06/24 14:30 02/07/24 07:51 Acetaminophen Tab 325 Mg Tab PO 650 mg BID PRN Administration Pain or Fever > 100.5 Albuterol Sulfate 2.5 mg 02/06/24 14:30 Albuterol Nebulized 2.5 Mg/3 Ml INHALATION RT-TID PRN Shortness Of Breath Aspirin 325 mg 02/07/24 09:00 02/07/24 08:03 Aspirin 325 Mg Tab PO 325 mg DAILY LYNDSAY Administration Atorvastatin Calcium 20 mg 02/06/24 21:00 02/06/24 20:11 Atorvastatin 20 Mg Tab PO 20 mg HS LYNDSAY Administration Dextrose/Water 25 ml 02/07/24 07:11 02/07/24 07:40 Dextrose 50% Syringe 50 Ml IVP 25 ml PER PROTOCOL PRN Administration Hypoglycemia Protocol Dextrose/Water 50 ml 02/07/24 07:11 Dextrose 50% Syringe 50 Ml IVP PER PROTOCOL PRN Hypoglycemia Protocol Famotidine 20 mg 02/07/24 09:00 02/07/24 08:00 Famotidine 20 Mg/2 Ml Vial IV 20 mg DAILY LYNDSAY Administration Fluticasone Propionate 2 puff 02/06/24 20:00 02/07/24 08:51 Fluticasone 110 Mcg Inhaler INHALATION 2 puff RT-BID LYNDSAY Administration Furosemide 40 mg 02/06/24 15:30 02/07/24 07:53 Furosemide 10 Mg/Ml 4 Ml Vial IV 40 mg Q8HR LYNDSAY Administration Heparin Sodium (Porcine) 0 unit 02/06/24 14:34 02/07/24 00:56 Heparin Sodium 1,000 Un/Ml (10ml Vl) IV 1,814 unit PER PROTOCOL PRN Administration Low PTT Protocol Heparin Sodium/Sodium Chloride 250 mls @ 8.709 mls/hr 02/06/24 15:15 02/07/24 00:56 25,000 unit/ Sodium Chloride IV 14 units/kg/hr .Q24H LYNDSAY 10.161 mls/hr Administration Protocol 12 UNITS/KG/HR Insulin Aspart 0 unit 02/07/24 07:30 02/07/24 07:33 Insulin Aspart (Novolog) 100 Unit/Ml Vial SQ Not Given ACHS LYNDSAY Protocol Insulin Detemir 8 unit 02/06/24 21:00 02/07/24 07:32 Insulin Detemir (Levemir) 100 Unit/Ml Syr SQ Not Given BID@0700,2100 [facility] Insulin Human Regular 2 unit 02/06/24 14:30 Insulin Regular 100 Unit/Ml Vial (Iv) SQ TID PRN BS below 150, gets 2 units Levothyroxine Sodium 176 mcg 02/07/24 06:30 02/07/24 07:51 Levothyroxine 88 Mcg Tab PO 176 mcg DAILY@0630 [facility] Administration Nitroglycerin 1 inch 02/06/24 15:00 02/07/24 07:49 Nitroglycerin Oint 1 Inch/Gm Packet TOPICAL 02/07/24 15:01 1 inch Q6HR LYNDSAY Administration Intake and Output 02/06/24 02/07/24 02/07/24 22:59 06:59 14:59 Intake Total 85.638 Output Total 113 Balance -113 85.638 Intake: Intake, IV Titration 85.638 Amount Heparin Sod,Pork in 0.45% 85.638 NaCl 25,000 unit In 0.45 % NaCl 1 250ml.bag @ 12 UNITS/KG/HR 8.709 mls/hr IV .Q24H [facility] Rx#: [id number] Output: Post Void Residual 113 02/07/24 07:16 02/07/24 07:16
[2024-02-07 10:11] LABS: Glucose,Whole Blood 79 mg/dL (70-110)
[2024-02-07] MEDS: METOPROLOL TARTRATE 25 MG TAB PO SCH (10:14)
[2024-02-07] MEDS: GLUCAGON 1 MG/ML VIAL IM STA (10:16)
[2024-02-07 10:57] LABS: Glucose,Whole Blood 98 mg/dL (70-110)
[2024-02-07 11:49] LABS: Glucose,Whole Blood 99 mg/dL (70-110)
--- NOTE | 2024-02-07 11:57 | CA ---
Transthoracic Echo Report Name: Mila Camilo Age: 58 Gender: F : 1965 Exam Date: 02/07/2024 08:08 Exam Location: [place] [facility] Ht (in): 68 Wt (lb): 160 Ordering Physician: Jalen Manley DO Attending/Referring Phys: Diamond Driller Caro Sena RDCS Procedure CPT: Indications: Heart failure Cardiac Hx: Technical Quality: Fair Contrast 1: Definity Total Dose (mL): 2 Contrast 2: Total Dose (mL): MEASUREMENTS (Male / Female) Normal Values 2D ECHO LV Diastolic Diameter PLAX 5.4 cm 4.2 - 5.9 / 3.9 - 5.3 cm LV Systolic Diameter PLAX 4.3 cm IVS Diastolic Thickness 1.0 cm 0.6 - 1.0 / 0.6 - 0.9 cm LVPW Diastolic Thickness 1.1 cm 0.6 - 1.0 / 0.6 - 0.9 cm LV Relative Wall Thickness 0.4 RV Internal Dim ED PLAX 1.7 cm LA Systolic Diameter LX 4.2 cm 3.0 - 4.0 / 2.7 - 3.8 cm LV Diastolic Volume MOD BP 88.3 cm??? 67 - 155 / 56 - 104 cm??? LV Systolic Volume MOD BP 64.0 cm??? 22 - 58 / 19 - 49 cm??? LV Ejection Fraction MOD BP 27.5 % >= 55 % LV Cardiac Index MOD BP 1285.0 cm???/min???m??? LV Diastolic Volume MOD 4C 93.4 cm??? LV Systolic Volume MOD 4C 85.4 cm??? LV Ejection Fraction MOD 4C 8.6 % LV Cardiac Index MOD 4C 422.1 cm???/min???m??? LV Diastolic Length 4C 7.7 cm LV Systolic Length 4C 7.6 cm LV Diastolic Volume MOD 2C 79.9 cm??? LV Systolic Volume MOD 2C 62.1 cm??? LV Ejection Fraction MOD 2C 22.3 % LV Cardiac Index MOD 2C 942.0 cm???/min???m??? LV Diastolic Length 2C 7.4 cm LV Systolic Length 2C 7.4 cm LA Volume 50.5 cm??? 18 - 58 / 22 - 52 cm??? LA Volume Index 26.9 cm???/m??? 16 - 28 cm???/m??? DOPPLER AV Peak Velocity 134.5 cm/s AV Peak Gradient 7.2 mmHg AI Peak Velocity 306.6 cm/s AI Peak Gradient 37.6 mmHg AI Pressure Half Time 448.3 ms MV Area PHT 2.9 cm??? Mitral E Point Velocity 111.7 cm/s Mitral A Point Velocity 124.6 cm/s Mitral E to A Ratio 0.9 MV Deceleration Time 257.3 ms TR Peak Velocity 297.3 cm/s TR Peak Gradient 35.4 mmHg FINDINGS Left Ventricle Left ventricular ejection fraction is estimated at 20-25 %. Mildly increased posterior wall thickness. Mildly increased left ventricular diastolic diameter. Moderately increased left ventricular systolic volume. Severely decreased left ventricular ejection fraction. Severely reduced global left ventricular systolic function. Right Ventricle Normal right ventricular size and function. Mild pulmonary hypertension. Right Atrium Normal right atrial size. Left Atrium Mildly increased left atrial diameter. Mitral Valve Structurally normal mitral valve. [id number] mitral regurgitation. Aortic Valve Trileaflet aortic valve. No aortic stenosis. Mild aortic regurgitation. Tricuspid Valve Structurally normal tricuspid valve. Trace to mild tricuspid regurgitation. Pulmonic Valve Structurally normal pulmonic valve. No pulmonic stenosis. No pulmonic regurgitation. Pericardium Small pericardial effusion. Pericardial effusion located anteriorly. Left pleural effusion. Aorta Aortic annulus normal. CONCLUSIONS Severe LV dysfunction. The ejection fraction is 20-25% Moderate to severe mitral regurgitation Previewed by: Dr. Clinton Pitts MD (Electronically Signed) Final Date: 07 Feb 2024 11:56
[2024-02-07 14:20] LABS: Appearance,Urine Cloudy (Clear); Bilirubin,Urine Negative (Negative); Blood,Urine Trace (Negative); Color,Urine Colorless; Glucose,Urine (UA) 1+ (Negative); Ketones,Urine Negative (Negative); Leukocyte Esterase,Urine Moderate (Negative); Mucus,Urine Rare /hpf; Nitrite,Urine Negative (Negative); Protein,Urine 3+ (Negative); RBC,Urine 3 /hpf (0-5); Specific Gravity,Urine 1.011 (1.001-1.035); Squamous Epithelial Cell,Urine 7 /hpf (0-4); Urobilinogen,Urine <2.0 mg/dL (<2.0); WBC,Urine 15 /hpf (0-5)
--- NOTE | 2024-02-07 15:17 | P.CONS ---
History of Present Illness - Reason for Consult Consult date: 02/07/24 Anemia Requesting physician: Beatriz Marcum - Chief Complaint Shortness of breath, edema - History of Present Illness This is a pleasant 58-year-old female who is currently incarcerated who was brought into the emergency department with complaints of shortness of breath and lower extremity swelling. She has a past medical history of kidney disease, COPD, diabetes mellitus, TIA, GERD, hyperlipidemia, hypertension, liver disease and thyroid disorder. Patient states that she was diagnosed with hepatitis as a child. Patient was NSTEMI and was started on a heparin drip. She was seen by cardiology this morning and they recommended discontinuing heparin drip. Jessica ent was noted to be anemic on admission. Gastroenterology was consulted for anemia. She denies any previous history of anemia. Denies any previous history of GI bleed. Denies any blood in her stool or black stool no abdominal pain nausea or vomiting. She denies any anticoagulation. She states her last EGD and colonoscopy was around 10 years ago. She states that she was told that she had a hole in her colon so they did an exploratory laparotomy however there was no hole and nothing further was done. She states initially that she was diagnosed with kidney disease a year ago but then also states that she was diagnosed 4 years ago with acute kidney injury from IV antibiotics. She denies any new medications. States that she has been on Lipitor for 1 year she was noted to have some mildly elevated LFTs as well. Review of Systems REVIEW OF SYSTEMS: CARDIOPULMONARY: Patient came in with shortness of breath, chest pressure. Lower extremity swelling. Gastrointestinal: No abdominal pain or epigastric pain. No nausea or vomiting. No hematemesis, coffee-ground emesis. No rectal bleeding, or melena. GENITOURINARY: No dysuria or hematuria. MUSCULOSKELETAL: Reports normal range of motion., Joint pain. SKIN: No rashes. No jaundice. ENDOCRINE: No chills, fevers. No excessive weight gain or loss. No polydipsia or polyuria. PSYCHIATRIC: Unremarkable. NEUROLOGY: No change in mental status. Denies dizziness, headache. ENT: Vision unremarkable. CONSTITUTIONAL: No recent weight loss. No fever, chills, night sweats. Past Medical History Past Medical History: COPD, CVA/TIA, Diabetes Mellitus, Fibromyalgia, GERD/Reflux, Hyperlipidemia, Hypertension, Liver Disease, Osteoarthritis (OA), Thyroid Disorder Additional Past Medical History / Comment(s): NEUROPATHY BILATERAL FEET, DDD NE CK AND LOWER BACK, hiatal hernia, states no need for BP med anymore(gets orthostatic hypotension-has "medtronic heart loop monitor"), hx hepatitis as a kid, hx fractrured left wrist, hx stroke 03/03/22-problems with balance since. History of Any Multi-Drug Resistant Organisms: MRSA Year Discovered:: 2018 MDRO Source:: stomach Past Surgical History: Adenoidectomy, Back Surgery, Bladder Surgery, Hyst erectomy, Orthopedic Surgery, Tonsillectomy, Tubal Ligation Additional Past Surgical History / Comment(s): Debridement right foot, PICC line placed and later removed, bladder suspension, exploratory laparotomy, right great toe amputation, pins right in foot, cataracts removed, left wrist ORIF, loop heart monitor placed 02/2022. Past Anesthesia/Blood Transfusion Reactions: No Reported Reaction, Motion Sickness Additional Past Anesthesia/Blood Transfusion Reaction / Comm: . Type of Cardiac Device: Loop Past Psychological History: Anxiety, Depression Smoking Status: Current every day smoker Past Alcohol Use History: Occasional Past Drug Use History: Marijuana - Past Family History Mother Family Medical History: Pulmonary Embolus Additional Family Medical History / Comment(s): . Father Additional Family Medical History / Comment(s): at 26yrs old--accident at work Medications and Allergies Home Medications Medication Instructions Recorded Confirmed Type Levothyroxine Sodium [Synthroid] 175 mcg PO DAILY 02/02/22 02/06/24 History Acetaminophen Tab [Tylenol] 650 mg PO BID PRN 02/06/24 02/06/24 History Albuterol Nebulized [Ventolin 2.5 mg INHALATION RT-TID PRN 02/06/24 02/06/24 History Nebulized] Atorvastatin [Lipitor] 20 mg PO HS 02/06/24 02/06/24 History Ciclesonide [Alvesco] 1 puff INHALATION RT-BID 02/06/24 02/06/24 History Insulin Glargine [Lantus Vial] 8 unit SQ BID 02/06/24 02/06/24 History Insulin Regular [humuLIN R] 2 units SQ TID PRN 02/06/24 02/06/24 History Insulin Regular [humuLIN R] See Protocol SQ QID 02/06/24 02/06/24 History Ondansetron Hcl 2mg/Ml Injection 4 mg INJ ONCE PRN 02/06/24 02/06/24 History Ondansetron [Zofran] 4 mg PO BID PRN 02/06/24 02/06/24 History Allergies Allergy/AdvReac Type Severity Reaction Status Date / Time Sulfa (Sulfonamide Allergy see comment Verified 02/06/24 13:59 Antibiotics) Physical Exam Vitals: Vital Signs Temp Pulse Resp BP Pulse Ox 02/07/24 10:12 98.3 F 89 22 134/70 95 02/07/24 08:51 95 02/07/24 07:44 100.2 F H 100 22 124/68 93 L 02/07/24 00:00 99 21 125/63 94 L 02/06/24 18:25 95 18 102/58 94 L 02/06/24 15:00 96 18 122/71 95 02/06/24 13:11 91 02/06/24 13:03 91 02/06/24 11:55 97.6 F 95 18 103/56 97 Intake and Output 02/06/24 02/07/24 02/07/24 22:59 06:59 14:59 Intake Total 85.638 Output Total 113 Balance -113 85.638 Intake: Intake, IV Titration 85.638 Amount Heparin Sod,Pork in 0.45% 85.638 NaCl 25,000 unit In 0.45 % NaCl 1 250ml.bag @ 12 UNITS/KG/HR 8.709 mls/hr IV .Q24H [facility] Rx#: [id number] Output: Post Void Residual 113 General appearance: The patient is alert, oriented, appears in no acute distress. HET: Head is normocephalic and atraumatic. Conjunctiva pink. Sclera anicteric. Neck: Supple without lymphadenopathy. Trachea midline. Heart: Regular. Lungs: Equal expansion, normal respiratory effort. Abdomen: Soft, nontender, nondistended. Skin: No rashes. No jaundice. Extremities: Normal skin color and turgor. No pedal edema. Neurological: No focal deficits. Alert and oriented x3. Results CBC & Chem 7: 02/07/24 07:16 02/07/24 07:16 Labs: Abnormal Lab Results - Last 24 Hours (Table) 02/06/24 02/06/24 02/06/24 Range/Units 12:35 12:35 12:35 RBC 2.56 L (3.80-5.40) m/uL Hgb 7.7 L (11.4-16.0) gm/dL Hct 23.6 L (34.0-46.0) % PT 9.7 L (10.0-12.5) sec APTT (22.0-30.0) sec Sodium 133 L (137-145) mmol/L Chloride (98-107) mmol/L Carbon Dioxide (22-30) mmol/L BUN 56 H (7-17) mg/dL Creatinine 2.73 H (0.52-1.04) mg/dL Glucose 101 H (74-99) mg/dL POC Glucose (mg/dL) (70-110) mg/dL Calcium 8.0 L (8.4-10.2) mg/dL AST 62 H (14-36) U/L ALT 40 H (4-34) U/L Alkaline Phosphatase 158 H (38-126) U/L Troponin I (0.000-0.034) ng/mL Total Protein 5.1 L (6.3-8.2) g/dL Albumin 2.2 L (3.5-5.0) g/dL 02/06/24 02/06/24 02/06/24 Range/Units 12:35 14:46 18:10 RBC (3.80-5.40) m/uL Hgb (11.4-16.0) gm/dL Hct (34.0-46.0) % PT (10.0-12.5) sec APTT (22.0-30.0) sec Sodium (137-145) mmol/L Chloride (98-107) mmol/L Carbon Dioxide (22-30) mmol/L BUN (7-17) mg/dL Creatinine (0.52-1.04) mg/dL Glucose (74-99) mg/dL POC Glucose (mg/dL) (70-110) mg/dL Calcium (8.4-10.2) mg/dL AST (14-36) U/L ALT (4-34) U/L Alkaline Phosphatase (38-126) U/L Troponin I 1.290 H* 1.760 H* 2.210 H* (0.000-0.034) ng/mL Total Protein (6.3-8.2) g/dL Albumin (3.5-5.0) g/dL 02/06/24 02/06/24 02/07/24 Range/Units 20:34 20:52 03:37 RBC (3.80-5.40) m/uL Hgb (11.4-16.0) gm/dL Hct (34.0-46.0) % PT (10.0-12.5) sec APTT 36.6 H (22.0-30.0) sec Sodium (137-145) mmol/L Chloride (98-107) mmol/L Carbon Dioxide (22-30) mmol/L BUN (7-17) mg/dL Creatinine (0.52-1.04) mg/dL Glucose (74-99) mg/dL POC Glucose (mg/dL) 220 H 48 L (70-110) mg/dL Calcium (8.4-10.2) mg/dL AST (14-36) U/L ALT (4-34) U/L Alkaline Phosphatase (38-126) U/L Troponin I (0.000-0.034) ng/mL Total Protein (6.3-8.2) g/dL Albumin (3.5-5.0) g/dL 02/07/24 02/07/24 02/07/24 Range/Units 03:55 06:47 07:16 RBC 2.31 L (3.80-5.40) m/uL Hgb 7.1 L (11.4-16.0) gm/dL Hct 22.7 L (34.0-46.0) % PT (10.0-12.5) sec APTT (22.0-30.0) sec Sodium (137-145) mmol/L Chloride (98-107) mmol/L Carbon Dioxide (22-30) mmol/L BUN (7-17) mg/dL Creatinine (0.52-1.04) mg/dL Glucose (74-99) mg/dL POC Glucose (mg/dL) 167 H 69 L (70-110) mg/dL Calcium (8.4-10.2) mg/dL AST (14-36) U/L ALT (4-34) U/L Alkaline Phosphatase (38-126) U/L Troponin I (0.000-0.034) ng/mL Total Protein (6.3-8.2) g/dL Albumin (3.5-5.0) g/dL 02/07/24 02/07/24 02/07/24 Range/Units 07:16 07:29 09:19 RBC (3.80-5.40) m/uL Hgb (11.4-16.0) gm/dL Hct (34.0-46.0) % PT (10.0-12.5) sec APTT (22.0-30.0) sec Sodium 133 L (137-145) mmol/L Chloride 110 H (98-107) mmol/L Carbon Dioxide 21 L (22-30) mmol/L BUN 56 H (7-17) mg/dL Creatinine 2.96 H (0.52-1.04) mg/dL Glucose 51 L (74-99) mg/dL POC Glucose (mg/dL) 61 L 69 L (70-110) mg/dL Calcium 7.8 L (8.4-10.2) mg/dL AST 55 H (14-36) U/L ALT 35 H (4-34) U/L Alkaline Phosphatase 145 H (38-126) U/L Troponin I (0.000-0.034) ng/mL Total Protein 4.8 L (6.3-8.2) g/dL Albumin 2.1 L (3.5-5.0) g/dL Comments: Chest x-ray reports constellation of findings favor CHF over pneumonia correlate clinically Echocardiogram report severe LV dysfunction. EF 20 to 25%. Moderate to severe mitral regurgitation Assessment and Plan (1) Normocytic normochromic anemia Narrative/Plan: 58-year-old female presenting to the emergency department with shortness of breath and lower extremity swelling evaluated for NSTEMI by cardiology and was initially started on a heparin drip however has been discontinued due to her anemia. Patient was noted to be anemic with a hemoglobin of 7.7 with a normocytic normochromic anemia. It is unclear if patient has chronic anemia however last blood count in our system from 2021 had a hemoglobin of 12.0 however trending she has had some anemia in the past. She has had upper endoscopy and lower endoscopy about 10 years ago. Patient denies any blood in her stool or black stool, no nausea or vomiting or hematemesis. No elevation in her BUN, patient does have multiple comorbidities including possible heart failure, COPD, diabetes mellitus, and kidney disease. Will order iron studies. Likely this is anemia of chronic disease. Further recommendations forthcoming. Current Visit: Yes Status: Acute Code(s): D64.9 - ANEMIA, UNSPECIFIED SN OMED Code(s): 34930760 (2) Renal failure Current Visit: Yes Status: Acute Code(s): N19 - UNSPECIFIED KIDNEY FAILURE SNOMED Code(s): 63489093 (3) COPD (chronic obstructive pulmonary disease) Current Visit: Yes Status: Acute Code(s): J44.9 - CHRONIC OBSTRUCTIVE PULMONARY DISEASE, UNSPECIFIED SNOMED Code(s): 78437234 (4) Shortness of breath Current Visit: Yes Status: Acute Code(s): R06.02 - SHORTNESS OF BREATH SNOMED Code(s): 851393191 (5) NSTEMI (non-ST elevated myocardial infarction) Current Visit: Yes Status: Acute Code(s): I21.4 - NON-ST ELEVATION (NSTEMI) MYOCARDIAL INFARCTION SNOMED Code(s): 21400885 (6) Diabetes mellitus Current Visit: No Status: Acute Code(s): E11.9 - TYPE 2 DIABETES MELLITUS WITHOUT COMPLICATIONS SNOMED Code(s): 56831779 (7) Elevated LFTs Narrative/Plan: Patient with mildly elevated LFTs. States history of hepatitis as a child. Will obtain hepatitis panel. Current Visit: Yes Status: Acute Code(s): R79.89 - OTHER SPECIFIED ABNORMAL FINDINGS OF BLOOD CHEMISTRY SNOMED Code(s): 248218655 (8) Obesity Current Visit: Yes Status: Acute Code(s): E66.9 - OBESITY, UNSPECIFIED SNOMED Code(s): 680795924 Plan: 1. Continue symptomatic and supportive care 2. Daily CBC, transfuse for hemoglobin less than 7 3. Iron studies ordered 4. Nephrology following for kidney disease 5. Cardiology following 6. Protonix 40 mg daily for GI prophylaxis 7. No plans on endoscopic evaluation at this time Thank you for this consultation, we will continue to follow. Dr. Bibiana Sands I agree with the dictator's note, documented as a scribe by Queta Petersen.
[2024-02-07 15:58] LABS: % Iron Saturation 9.36 (12.00-45.00)
[2024-02-07 16:05] LABS: Chol/HDL Ratio 2.42 Ratio; LDL Cholesterol,Calculated 72.8 mg/dL (0.0-131.0)
[2024-02-07 16:19] LABS: Hepatitis A Antibody IgM Nonreactive (Nonreactive); Hepatitis B Core IgM Nonreactive (Nonreactive); Hepatitis B Surface Antigen Nonreactive (Nonreactive); Hepatitis C IgG Antibody Nonreactive (Nonreactive)
[2024-02-07 16:25] LABS: Glucose,Whole Blood 166 mg/dL (70-110)
[2024-02-07] MEDS: ALBUTEROL NEBULIZED 2.5 MG/3 ML INHALATION PRN (16:31)
[2024-02-07 20:49] LABS: Glucose,Whole Blood 397 mg/dL (70-110)
[2024-02-07] MEDS: ATORVASTATIN 40 MG TAB PO SCH (20:53)
[2024-02-07 23:50] LABS: Glucose,Whole Blood 226 mg/dL (70-110)
[2024-02-08] MEDS: FUROSEMIDE 10 MG/ML 4 ML VIAL IV STA (01:08)
[2024-02-08 05:47] LABS: Glucose,Whole Blood 276 mg/dL (70-110)
[2024-02-08 08:02] LABS: Basophils # (A) 0.1 k/uL (0-0.2); Basophils % (A) 1 %; Eosinophils # (A) 0.1 k/uL (0-0.7); Eosinophils % (A) 1 %; HGB 7.1 gm/dL (11.4-16.0); Lymphocytes # (A) 1.2 k/uL (1.0-4.8); Lymphocytes % (A) 17 %; MCH 31.2 pg (25.0-35.0); MCHC 32.4 g/dL (31.0-37.0); MCV 96.2 fL (80.0-100.0); Monocytes # (A) 0.5 k/uL (0-1.0); Monocytes % (A) 8 %; Neutrophils # (A) 4.7 k/uL (1.3-7.7); Neutrophils % (A) 71 %; Platelet Count 306 k/uL (150-450); RBC 2.28 m/uL (3.80-5.40); RDW 12.1 % (11.5-15.5); WBC 6.7 k/uL (3.8-10.6)
[2024-02-08 08:30] LABS: African American GFR (CKD) 17 (>60 ml/min/1.73 sqM); Anion Gap 9 mmol/L; Blood Urea Nitrogen 63 mg/dL (7-17); Calcium 7.9 mg/dL (8.4-10.2); Carbon Dioxide 17 mmol/L (22-30); Chloride 104 mmol/L (98-107); Glucose 229 mg/dL (74-99); Non-African American GFR(CKD) 14 (>60 ml/min/1.73 sqM); Potassium 5.1 mmol/L (3.5-5.1); Sodium 130 mmol/L (137-145)
--- NOTE | 2024-02-08 08:39 | P.PN ---
Subjective This is a pleasant 58 years old female with past medical history of multiple medical problems as below She has been incarcerated for 52 days, there is officer at bedside. Patient presents because of shortness of breath and exertional dyspnea has for the last 2 days, she states she hears herself wheezing when she lies down. Currently she is breathing quietly. She is complaining for mild chest pain on the left side, nonradiating nonspecific, feels much better now and very mild. She has occasional cough but no phlegm. Also she is complaining from upset stomach but no diarrhea or vomiting She complains from decreased urination but no dysuria or urgency. She has mild headache feels generally weak but no dizziness or blurry vision. She used to smoke half pack per day before she got incarcerated No alcohol or illicit drugs. She follow-up with her wool cleaner Dr. Donal Herrera and metal fabricating inspector Dr. Babb who examined her about 2 months ago where she has some mild ulcer In the bottom of her right total This morning patient has low-grade fever 100.2 She is also mildly tachypneic around 22 She is saturating 93% on 2 L oxygen via nasal cannula Labs reviewed showing hemoglobin of 7.7, rest of CBC is unremarkable BMP liver enzymes not elevated. INR 0.9. Lactic 0.9 proBNP is elevated 25 100 EKG showing sinus rhythm at [address]-T changes, no left bundle branch block 02/08/2024 Patient lying in bed, relaxed however she has mild tachypnea, mild distress She has significant coughing but she denies chest pain. Normal palpitation but patient has bilateral leg swelling No abdominal pain, no suprapubic pain or tenderness. But she has increased frequency of urination, last night she peed 4 times which is unusual for her. Urine analysis suspicious for infection and patient had low-grade temperature of 100.2 and she was started on Rocephin pending urine culture. Bladder scan was checked it was -101-150. She has about 900-1000 mL of urine output overnight.. Glucose improved after we stopped her Levemir 8 units twice daily, recommend to start it as 5 units daily. Continue with sliding scale. Also because of her tachypnea we will going to repeat chest x-ray. Renal function has worsened to 3.3 in the close were consulted. No evidence of hypotension. No NSAIDs Hemoglobin stable at 7.1, no need for endoscopy by a GI team. Workup so far showing anemia of chronic disease, B12 and folate is pending. Patient continued on heparin drip for her non-STEMI. We are going to check occult blood in the stool Patient currently on IV Lasix 40 mg 3 times a day. We lowered to twice a day g iven worsening renal function. Further recommendation pending further workup like chest x-ray Review of systems CONSTITUTIONAL: No fever, no malaise, no fatigue. HEENT: No recent visual problems or hearing problems. Denied any sore throat. NEUROLOGICAL: No headaches, no weakness, no numbness. HEMATOLOGICAL: Denies any bleeding or petechiae. GENITOURINARY: Denies any burning micturition, frequency, or urgency. MUSCULOSKELETAL/RHEUMATOLOGICAL: Denies any joint pain, swelling, or any muscle pain. ENDOCRINE: Denies any polyuria or polydipsia. Active Medications Generic Name Dose Route Start Last Admin Trade Name Freq PRN Reason Stop Dose Admin Acetaminophen 650 mg 02/06/24 14:30 02/08/24 06:16 Acetaminophen Tab 325 Mg Tab PO 650 mg BID PRN Administration Pain or Fever > 100.5 Albuterol Sulfate 2.5 mg 02/06/24 14:30 02/07/24 16:31 Albuterol Nebulized 2.5 Mg/3 Ml INHALATION 2.5 mg RT-TID PRN Administration Shortness Of Breath Aspirin 81 mg 02/08/24 09:00 Aspirin 81 Mg PO DAILY LYNDSAY Atorvastatin Calcium 40 mg 02/07/24 21:00 02/07/24 20:53 Atorvastatin 40 Mg Tab PO 40 mg HS LYNDSAY Administration Dextrose/Water 25 ml 02/07/24 07:11 02/07/24 07:40 Dextrose 50% Syringe 50 Ml IVP 25 ml PER PROTOCOL PRN Administration Hypoglycemia Protocol Dextrose/Water 50 ml 02/07/24 07:11 Dextrose 50% Syringe 50 Ml IVP PER PROTOCOL PRN Hypoglycemia Protocol Famotidine 20 mg 02/07/24 09:00 02/07/24 08:00 Famotidine 20 Mg/2 Ml Vial IV 20 mg DAILY LYNDSAY Administration Fluticasone Propionate 2 puff 02/06/24 20:00 02/07/24 18:22 Fluticasone 110 Mcg Inhaler INHALATION 2 puff RT-BID LYNDSAY Administration Furosemide 40 mg 05/02/24 09:00 Furosemide 10 Mg/Ml 4 Ml Vial IV Q12HR [facility] Heparin Sodium (Porcine) 0 unit 02/06/24 14:34 02/07/24 00:56 Heparin Sodium 1,000 Un/Ml (10ml Vl) IV 1,814 unit PER PROTOCOL PRN Administration Low PTT Protocol Ceftriaxone Sodium 1 gm/ 50 mls @ 100 mls/hr 02/08/24 09:00 Sodium Chloride IVPB Q24HR [facility] Protocol Insulin Aspart 0 unit 02/07/24 07:30 02/08/24 06:14 Insulin Aspart (Novolog) 100 Unit/Ml Vial SQ 3 unit ACHS [facility] Administration Protocol Insulin Detemir 5 unit 02/08/24 09:00 Insulin Detemir (Levemir) 100 Unit/Ml Syr SQ DAILY@0700 [facility] Insulin Human Regular 2 unit 02/06/24 14:30 Insulin Regular 100 Unit/Ml Vial (Iv) SQ TID PRN BS below 150, gets 2 units Levothyroxine Sodium 176 mcg 02/07/24 06:30 02/08/24 06:14 Levothyroxine 88 Mcg Tab PO 176 mcg DAILY@0630 [facility] Administration Metoprolol Tartrate 25 mg 02/07/24 09:00 02/07/24 20:53 Metoprolol Tartrate 25 Mg Tab PO 25 mg BID LYNDSAY Administration Objective - Vital Signs Vital signs: Vital Signs Temp 98.2 F 02/08/24 03:52 Pulse 95 02/08/24 03:52 Resp 24 02/08/24 03:52 BP 127/61 02/08/24 03:52 Pulse Ox 94 L 02/08/24 03:52 FiO2 Intake & Output 02/07/24 02/08/24 02/08/24 18:59 06:59 18:59 Intake Total 240 10 Output Total 0 650 Balance 240 -640 Weight 73.4 kg 70.4 kg Intake: IV 10 Invasive Line 1 10 Oral 240 0 Output: Urine 650 Post Void Residual 0 Other: Voiding Method Toilet Bedside Commode # Bowel Movements 0 - Exam -GENERAL: The patient is alert and oriented x3, not in any acute distress. Well developed, well nourished. Generally weak and lethargic HEENT: Pupils are round and equally reacting to light. EOMI. No scleral icterus. No conjunctival pallor. Normocephalic, atraumatic. No pharyngeal erythema. No thyromegaly. CARDIOVASCULAR: S1 and S2 present. No murmurs, rubs, or gallops. -PULMONARY: Chest is clear to auscultation, no wheezing , no crackles. Tachypnea ABDOMEN: Soft, nontender, nondistended, normoactive bowel sounds. No palpable organomegaly. MUSCULOSKELETAL: No joint swelling or deformity. -EXTREMITIES: No cyanosis, clubbing, o 1+ bilateral pitting leg edema. NEUROLOGICAL: Gross neurological examination did not reveal any focal deficits. SKIN: No rashes. no petechiae. - Labs CBC & Chem 7: 02/08/24 07:39 02/08/24 07:39 Labs: Abnormal Lab Results - Last 24 Hours (Table) 02/07/24 02/07/24 02/07/24 Range/Units 07:16 07:16 09:19 RBC 2.31 L (3.80-5.40) m/uL Hgb 7.1 L (11.4-16.0) gm/dL Hct 22.7 L (34.0-46.0) % Sodium (137-145) mmol/L Carbon Dioxide (22-30) mmol/L BUN (7-17) mg/dL Creatinine (0.52-1.04) mg/dL Glucose (74-99) mg/dL POC Glucose (mg/dL) 69 L (70-110) mg/dL Calcium (8.4-10.2) mg/dL Iron (50-170) UG/DL TIBC (228-460) UG/DL % Saturation (12.00-45.00) Transferrin (204.0-354.0) mg/dL HDL Cholesterol 61.90 H (40.00-60.00) mg/dL Urine Appearance (Clear) Urine Protein (Negative) Urine Glucose (UA) (Negative) Urine Blood (Negative) Ur Leukocyte Esterase (Negative) Urine WBC (0-5) /hpf Ur Squamous Epith Cells (0-4) /hpf Urine Mucus (None) /hpf 02/07/24 02/07/24 02/07/24 Range/Units 10:06 11:05 16:24 RBC (3.80-5.40) m/uL Hgb (11.4-16.0) gm/dL Hct (34.0-46.0) % Sodium (137-145) mmol/L Carbon Dioxide (22-30) mmol/L BUN (7-17) mg/dL Creatinine (0.52-1.04) mg/dL Glucose (74-99) mg/dL POC Glucose (mg/dL) 166 H (70-110) mg/dL Calcium (8.4-10.2) mg/dL Iron 16 L (50-170) UG/DL TIBC 171 L (228-460) UG/DL % Saturation 9.36 L (12.00-45.00) Transferrin 122.0 L (204.0-354.0) mg/dL HDL Cholesterol (40.00-60.00) mg/dL Urine Appearance Cloudy H (Clear) Urine Protein 3+ H (Negative) Urine Glucose (UA) 1+ H (Negative) Urine Blood Trace H (Negative) Ur Leukocyte Esterase Moderate H (Negative) Urine WBC 15 H (0-5) /hpf Ur Squamous Epith Cells 7 H (0-4) /hpf Urine Mucus Rare H (None) /hpf 02/07/24 02/07/24 02/08/24 Range/Units 20:48 23:49 05:46 RBC (3.80-5.40) m/uL Hgb (11.4-16.0) gm/dL Hct (34.0-46.0) % Sodium (137-145) mmol/L Carbon Dioxide (22-30) mmol/L BUN (7-17) mg/dL Creatinine (0.52-1.04) mg/dL Glucose (74-99) mg/dL POC Glucose (mg/dL) 397 H 226 H 276 H (70-110) mg/dL Calcium (8.4-10.2) mg/dL Iron (50-170) UG/DL TIBC (228-460) UG/DL % Saturation (12.00-45.00) Transferrin (204.0-354.0) mg/dL HDL Cholesterol (40.00-60.00) mg/dL Urine Appearance (Clear) Urine Protein (Negative) Urine Glucose (UA) (Negative) Urine Blood (Negative) Ur Leukocyte Esterase (Negative) Urine WBC (0-5) /hpf Ur Squamous Epith Cells (0-4) /hpf Urine Mucus (None) /hpf 02/08/24 02/08/24 Range/Units 07:39 07:39 RBC 2.28 L (3.80-5.40) m/uL Hgb 7.1 L (11.4-16.0) gm/dL Hct 22.0 L (34.0-46.0) % Sodium 130 L (137-145) mmol/L Carbon Dioxide 17 L (22-30) mmol/L BUN 63 H (7-17) mg/dL Creatinine 3.34 H (0.52-1.04) mg/dL Glucose 229 H (74-99) mg/dL POC Glucose (mg/dL) (70-110) mg/dL Calcium 7.9 L (8.4-10.2) mg/dL Iron (50-170) UG/DL TIBC (228-460) UG/DL % Saturation (12.00-45.00) Transferrin (204.0-354.0) mg/dL HDL Cholesterol (40.00-60.00) mg/dL Urine Appearance (Clear) Urine Protein (Negative) Urine Glucose (UA) (Negative) Urine Blood (Negative) Ur Leukocyte Esterase (Negative) Urine WBC (0-5) /hpf Ur Squamous Epith Cells (0-4) /hpf Urine Mucus (None) /hpf Assessment and Plan Assessment: Acute CHF exacerbation, unknown ejection fraction Chest pain with elevated troponin suspicious for non-STEMI New left bundle branch block Mild hypoxic respiratory failure Acute kidney injury on chronic kidney disease, nonoliguric Acute on chronic anemia of chronic disease, further workup is pending. 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 Hypoglycemia improved and Levemir 5 units started. At home she was taking 8 units twice daily Labs and medication were reviewed.. Continue same treatment. Continue with symptomatic treatment. Resume home medication. Monitor labs and vitals. DVT and GI prophylaxis. Further recommendations as per clinical course of the patient DVT prophylaxis: heparin GI Prophylaxis: Pepcid Prognosis is guarded given her multiple disease of the heart kidneys sinus infection
--- NOTE | 2024-02-08 08:57 | XR ---
EXAMINATION TYPE: XR chest 1V portable DATE OF EXAM: 02/08/2024 COMPARISON: 02/06/2024 HISTORY: Shortness of breath TECHNIQUE: Single frontal view of the chest is obtained. FINDINGS: Diffuse interstitial pattern with bilateral consolidation and pleural effusion. Loop recor isabel device noted in the heart size is stable. No pneumothorax. Correlate for underlying COPD. Osteope madalyn and degenerative change of the spine. More nodular appearing density in the left suprahilar regio n should be followed on subsequent x-ray. IMPRESSION: Correlate for CHF.
[2024-02-08] MEDS: FUROSEMIDE 10 MG/ML 4 ML VIAL IV SCH (09:01)
[2024-02-08] MEDS: ASPIRIN 81 MG PO SCH (09:01)
[2024-02-08] MEDS: INSULIN DETEMIR (LEVEMIR) 100 UNIT/ML SYR SQ SCH (09:01)
[2024-02-08 09:06] LABS: Glucose,Whole Blood 203 mg/dL (70-110)
--- NOTE | 2024-02-08 10:51 | P.NPCON ---
History of Present Illness - Reason for Consult acute renal failure - History of Present Illness Reason for consultation: Acute kidney injury History of present illness: Patient is a 58-year-old female seen in renal consultation for acute kidney injury. Patient's creatinine dated March 01, 2022 was 0.98. This admission creatinine was elevated at 2.73 and is up to 3.3 today. Patient came to the hospital due to shortness of breath and generalized weakness. Patient presents from intermediate and Pit Recorder is present at bedside. Patient is currently maintained on IV Lasix. Patient does have systolic CHF with ejection fraction of 20 to 25% with moderate to severe mitral regurgitation. Patient does have history of diabetes. She is currently on 2 L nasal cannula. Patient states she had gained about 20 pounds over the last 2 months but subsequently lost to 20 pounds. Patient states that her weight is near her baseline now. She has been voiding. Denies gross hematuria. Patient states she did have dark red bowel movement about 2 months ago. Hemoglobin this admission has been on the lower side and is 7.1 today. GI has been consulted. She denies use of nonsteroidals. Vital signs are stable. General: No acute distress. HEENT: Head exam is unremarkable. On nasal cannula. LUNGS: No audible rhonchi or wheezes. HEART: Rate and Rhythm are regular. ABDOMEN: Nontender. EXTREMITITES: No edema. Past Medical History Past Medical History: COPD, CVA/TIA, Diabetes Mellitus, Fibromyalgia, GERD/Reflux, Hyperlipidemia, Hypertension, Liver Disease, Osteoarthritis (OA), Thyroid Disorder Additional Past Medical History / Comment(s): NEUROPATHY BILATERAL FEET, DDD NECK AND LOWER BACK, hiatal hernia, states no need for BP med anymore(gets orthostatic hypotension-has "medtronic heart loop monitor"), hx hepatitis as a kid, hx fractrured left wrist, hx stroke 03/03/22-problems with balance since. History of Any Multi-Drug Resistant Organisms: MRSA Date of last positivie culture/infection: 2017 MDRO Source:: stomach Past Surgical History: Adenoidectomy, Back Surgery, Bladder Surgery, Hysterectomy, Orthopedic Surgery, Tonsillectomy, Tubal Ligation Additional Past Surgical History / Comment(s): Debridement right foot, PICC line placed and later removed, bladder suspension, exploratory laparotomy, right great toe amputation, pins right in foot, cataracts removed, left wrist ORIF, loop heart monitor placed 02/2022. Past Anesthesia/Blood Transfusion Reactions: No Reported Reaction, Motion Sickness Additional Past Anesthesia/Blood Transfusion Reaction / Comment(s): . Type of Cardiac Device: Loop Past Psychological History: Anxiety, Depression Smoking Status: Current every day smoker Past Alcohol Use History: Occasional Past Drug Use History: Marijuana - Past Family History Mother Family Medical History: Pulmonary Embolus Additional Family Medical History / Comment(s): . Father Additional Family Medical History / Comment(s): at 26yrs old--accident at work Medications and Allergies Home Medications Medication Instructions Recorded Confirmed Type Levothyroxine Sodium [Synthroid] 175 mcg PO DAILY 02/02/22 02/06/24 History Acetaminophen Tab [Tylenol] 650 mg PO BID PRN 02/06/24 02/06/24 History Albuterol Nebulized [Ventolin 2.5 mg INHALATION RT-TID PRN 02/06/24 02/06/24 History Nebulized] Atorvastatin [Lipitor] 20 mg PO HS 02/06/24 02/06/24 History Ciclesonide [Alvesco] 1 puff INHALATION RT-BID 02/06/24 02/06/24 History Insulin Glargine [Lantus Vial] 8 unit SQ BID 02/06/24 02/06/24 History Insulin Regular [humuLIN R] 2 units SQ TID PRN 02/06/24 02/06/24 History Insulin Regular [humuLIN R] See Protocol SQ QID 02/06/24 02/06/24 History Ondansetron Hcl 2mg/Ml Injection 4 mg INJ ONCE PRN 02/06/24 02/06/24 History Ondansetron [Zofran] 4 mg PO BID PRN 02/06/24 02/06/24 History Allergies Allergy/AdvReac Type Severity Reaction Status Date / Time Sulfa (Sulfonamide Allergy see comment Verified 02/06/24 13:59 Antibiotics) Physical Exam Vitals: Vital Signs Temp Pulse Pulse Pulse Resp BP BP 02/08/24 09:43 02/08/24 08:00 97.3 F L 87 20 120/63 02/08/24 03:52 98.2 F 95 24 127/61 02/08/24 00:00 98.3 F 82 28 H 115/66 05/01/24 20:00 97.6 F 105 H 22 116/72 02/07/24 16:38 80 16 02/07/24 16:31 88 16 02/07/24 14:16 98 F 86 16 02/07/24 13:00 99.0 F 79 18 134/70 BP Pulse Ox 02/08/24 09:43 97 02/08/24 08:00 94 L 02/08/24 03:52 94 L 02/08/24 00:00 96 02/07/24 20:00 92 L 02/07/24 16:38 02/07/24 16:31 02/07/24 14:16 105/59 94 L 02/07/24 13:00 Intake and Output 02/07/24 02/08/24 02/08/24 22:59 06:59 14:59 Intake Total 250 Output Total 650 Balance 250 -650 Intake: IV 10 Invasive Line 1 10 Oral 240 Output: Urine 650 Other: Voiding Method Bedside Commode Bedside Commode Bedside Commode External Catheter # Bowel Movements 0 Weight 70.4 kg Results - Lab Results Most recent lab results Calcium 7.9 mg/dL (8.4-10.2) L 02/08/24 07:39 Magnesium 2.1 mg/dL (1.6-2.3) 02/06/24 12:35 02/08/24 07:39 02/08/24 07:39 Assessment and Plan Plan: Assessment: 1. Acute kidney injury secondary to ATN. Creatinine 3.34 today. Rule out urinary retention. Creatinine as low as 0.98 dated March 01, 2022. 2. Acute on chronic systolic CHF with ejection fraction of 20 to 25% with moderate to severe mitral regurgitation and mild pulmonary hypertension. 3. Volume overload. 4. Anemia. Iron deficiency noted. GI following. 5. Metabolic acidosis secondary to acute kidney injury. 6. Hypervolemic hyponatremia. Plan: Change IV push Lasix to Lasix drip. Check bladder scan to rule out urinary retention. Strict I's and O's. Check renal ultrasound. Check serologies. Add fluid restriction once tolerating diet. Continue to monitor renal function and urine output. Add oral bicarb. Add IV iron. Thank you for the consultation. I will continue to follow the patient with you during her hospital stay.
[2024-02-08 11:31] LABS: Glucose,Whole Blood 366 mg/dL (70-110)
[2024-02-08] MEDS: SODIUM FERRIC GLUCONAT-SUCROSE 125 MG in SODIUM CHLORIDE 0.9% 100 ML IVPB SCH (11:46)
[2024-02-08] MEDS: FUROSEMIDE 100 MG in SODIUM CHLORIDE 0.9% 90 ML IV SCH (11:47)
[2024-02-08] MEDS: SODIUM BICARBONATE TAB 650 MG TAB PO SCH (11:47)
[2024-02-08] MEDS: NITROGLYCERIN OINT 1 INCH/GM PACKET TOPICAL SCH (11:47)
--- NOTE | 2024-02-08 13:10 | US ---
EXAMINATION TYPE: US renals and bladder DATE OF EXAM: 02/08/2024 COMPARISON: NONE CLINICAL INDICATION: Female, 58 years old with history of edwina; EDWINA EXAM MEASUREMENTS: Right Kidney: 11.2 x 4.4 x 4.3 cm Left Kidney: 9.6 x 4.1 x 3.9 cm Right Kidney: no evidence of hydronephrosis or nephrolithiasis. Left Kidney: no evidence of hydronephrosis or nephrolithiasis. Bladder: appears wnl Bilateral Jets seen: no Renal cortex thickness and echogenicity is within normal limits. IMPRESSION: No hydronephrosis or nephrolithiasis.
--- NOTE | 2024-02-08 13:27 | P.CNPUL ---
History of Present Illness Consult date: 02/08/24 Requesting physician: Velma Armstrong Reason for consult: dyspnea Chief complaint: Increased lower extremity swelling and shortness of breath History of present illness: Patient is a 58-year-old white female with past medical history significant for COPD, chronic ongoing tobacco dependence, CVA/TIA, diabetes mellitus, hyperlipidemia, hypertension, hypothyroidism, fibromyalgia, GERD, among other things. Patient presented back on 02/06/2024 from senior living with chief complaint of increased lower extremity swelling. She states that she first noted the swelling back in December,. It is progressively worsened, she states she has gained approximately 20 pounds over the last 2 months. Approximately 10 days ago she was awoken at night with substernal chest pain. Nonradiating. With associated shortness of breath and sweating. Lasted up to 15 minutes. She is also had a nonproductive cough. She was noted to be febrile this admission. She is empirically covered on antibiotics. On arrival to the emergency room, she was noted to have elevated troponins of 1.29, 1.76, and 2.2. EKG showed normal sinus rhythm with left bundle branch block, without any other acute ischemic changes. No previous EKG for comparison. She was started on heparin infusion per protocol. She also was on a Nitropaste. Echocardiogram showed a severely impaired left ventricular ejection fraction of 20 to 25%, and moderate to severe mitral regurgitation. Today, she was started on a Lasix infusion at 5 mg/h. Heparin infusion was stopped as the patient is anemic. Patient denies any acute blood loss. No vaginal bleeding. No juan blood in stool. No melena. No nausea or vomiting or hematic emesis. Last colonoscopy was reportedly around 10 years ago. She is currently lying in bed, on 2 L/min nasal cannula. Chest x-ray on admission shows diffuse interstitial edema as well as bilateral consolidation and small effusions. Findings consistent with congestive heart failure. NT proBNP was elevated 25,000. Patient not making much urine despite Lasix infusion. Patient did have 1 episode of fever during her admission with a Tmax of 100.2 F. She was empirically she was empirically placed on Rocephin. Negative for influenza, RSV, COVID. Most recent BMP from today: Sodium 130, potassium 5.1, chloride 104, serum bicarb down to 17, BUN 63, creatinine worsening and 3.34, glucose 229. LFTs mildly elevated. Hepatitis panel nonreactive. Overall, hemodynamically stable. Review of Systems REVIEW OF SYSTEMS: CONSTITUTIONAL: Reports a 20 pound weight gain over the last 2 months. EYES: Denies change in vision. EARS, NOSE, MOUTH, THROAT: Denies headaches, denies sore throat. CARDIOVASCULAR: Admits chest pain as described in HPI. Denies any heart palpitations or syncopal events. Increased lower extremity edema noted. RESPIRATORY: Admits exertional shortness of breath. There is a mild nonproductive cough. No significant sputum production. No hemoptysis. 1 episode of fever. GASTROINTESTINAL: Denies change in appetite, abdominal pain, nausea and vomitin g, or diarrhea GENITOURINARY: Denies hematuria, denies infections. MUSKULOSKELETAL: Denies pain, denies swelling. INTEGUMENTARY: Denies rash, denies eczema. NEUROLOGICAL: Denies recent memory loss, no recent seizure activity. PSYCHIATRIC: Denies anxiety, denies depression. HEMATOLOGIC/LYMPHATIC: Denies anemia, denies enlarged lymph node Past Medical History Past Medical History: COPD, CVA/TIA, Diabetes Mellitus, Fibromyalgia, GERD/Reflux, Hyperlipidemia, Hypertension, Liver Disease, Osteoarthritis (OA), Thyroid Disorder Additional Past Medical History / Comment(s): NEUROPATHY BILATERAL FEET, DDD NECK AND LOWER BACK, hiatal hernia, states no need for BP med anymore(gets orthostatic hypotension-has "medtronic heart loop monitor"), hx hepatitis as a kid, hx fractrured left wrist, hx stroke 03/03/22-problems with balance since. History of Any Multi-Drug Resistant Organisms: MRSA Date of last positivie culture/infection: 2017 MDRO Source:: stomach Past Surgical History: Adenoidectomy, Back Surgery, Bladder Surgery, Hysterec bailey, Orthopedic Surgery, Tonsillectomy, Tubal Ligation Additional Past Surgical History / Comment(s): Debridement right foot, PICC line placed and later removed, bladder suspension, exploratory laparotomy, right great toe amputation, pins right in foot, cataracts removed, left wrist ORIF, loop heart monitor placed 02/2022. Past Anesthesia/Blood Transfusion Reactions: No Reported Reaction, Motion Sickness Additional Past Anesthesia/Blood Transfusion Reaction / Comment(s): . Type of Cardiac Device: Loop Past Psychological History: Anxiety, Depression Smoking Status: Current every day smoker Past Alcohol Use History: Occasional Past Drug Use History: Marijuana - Past Family History Mother Family Medical History: Pulmonary Embolus Additional Family Medical History / Comment(s): . Father Additional Family Medical History / Comment(s): at 26yrs old--accident at work Medications and Allergies Home Medications Medication Instructions Recorded Confirmed Type Levothyroxine Sodium [Synthroid] 175 mcg PO DAILY 02/02/22 02/06/24 History Acetaminophen Tab [Tylenol] 650 mg PO BID PRN 02/06/24 02/06/24 History Albuterol Nebulized [Ventolin 2.5 mg INHALATION RT-TID PRN 02/06/24 02/06/24 History Nebulized] Atorvastatin [Lipitor] 20 mg PO HS 02/06/24 02/06/24 History Ciclesonide [Alvesco] 1 puff INHALATION RT-BID 02/06/24 02/06/24 History Insulin Glargine [Lantus Vial] 8 unit SQ BID 02/06/24 02/06/24 History Insulin Regular [humuLIN R] 2 units SQ TID PRN 02/06/24 02/06/24 History Insulin Regular [humuLIN R] See Protocol SQ QID 02/06/24 02/06/24 History Ondansetron Hcl 2mg/Ml Injection 4 mg INJ ONCE PRN 02/06/24 02/06/24 History Ondansetron [Zofran] 4 mg PO BID PRN 02/06/24 02/06/24 History Allergies Allergy/AdvReac Type Severity Reaction Status Date / Time Sulfa (Sulfonamide Allergy see comment Verified 02/06/24 13:59 Antibiotics) Physical Exam Vitals: Vital Signs Temp Pulse Pulse Pulse Resp BP BP 02/08/24 11:44 97.3 F L 79 20 115/63 02/08/24 09:43 02/08/24 08:00 97.3 F L 87 20 120/63 02/08/24 03:52 98.2 F 95 24 127/61 02/08/24 00:00 98.3 F 82 28 H 115/66 02/07/24 20:00 97.6 F 105 H 22 116/72 02/07/24 16:38 80 16 02/07/24 16:31 88 16 02/07/24 14:16 98 F 86 16 02/07/24 13:00 99.0 F 79 18 134/70 BP Pulse Ox 02/08/24 11:44 97 02/08/24 09:43 97 02/08/24 08:00 94 L 02/08/24 03:52 94 L 02/08/24 00:00 96 02/07/24 20:00 92 L 02/07/24 16:38 02/07/24 16:31 02/07/24 14:16 105/59 94 L 02/07/24 13:00 Intake and Output 02/07/24 02/08/24 02/08/24 22:59 06:59 14:59 Intake Total 250 Output Total 650 100 Balance 250 -650 -100 Intake: IV 10 Invasive Line 1 10 Oral 240 Output: Urine 650 Post Void Residual 100 Other: Voiding Method Bedside Commode Bedside Commode Bedside Commode External Catheter # Bowel Movements 0 Weight 70.4 kg GENERAL EXAM: Alert, 58-year-old white female, appearing older than stated age, comfortable in no apparent distress. HEAD: Normocephalic and atraumatic EYES: Normal reaction of pupils, equal size. NOSE: Clear with pink turbinates. THROAT: No erythema or exudates. NECK: No masses, no JVD. CHEST: No chest wall deformity. LUNGS: Equal air entry with bibasilar inspiratory crackles and mild and expiratory wheezes heard posteriorly and bilaterally. On 2 L/min nasal cannula. SpO2 97%. No conversational dyspnea or accessory muscle use while at rest. CVS: S1 and S2 normal with no audible murmur, regular rhythm. No extra heart sounds ABDOMEN: No hepatosplenomegaly, active bowel sounds, no guarding or rigidity. SPINE: No scoliosis or deformity SKIN: No rashes CENTRAL NERVOUS SYSTEM: No focal deficits, tone is normal in all 4 extremities. EXTREMITIES: There is bilateral lower extremity pitting edema, 1-2+ bilaterally. No clubbing, or cyanosis. Peripheral pulses are intact. Results - Laboratory Findings CBC and BMP: 02/08/24 07:39 02/08/24 07:39 PT/INR, D-dimer PT 10.7 sec (10.0-12.5) 02/07/24 07:16 INR 1.0 (<1.2) 02/07/24 07:16 Abnormal lab findings: Abnormal Labs 02/06/24 02/06/24 02/06/24 12:35 12:35 12:35 RBC 2.56 L Hgb 7.7 L Hct 23.6 L PT 9.7 L APTT Sodium 133 L Chloride Carbon Dioxide BUN 56 H Creatinine 2.73 H Glucose 101 H POC Glucose (mg/dL) Hemoglobin A1c Calcium 8.0 L Iron TIBC % Saturation Transferrin AST 62 H ALT 40 H Alkaline Phosphatase 158 H Troponin I Total Protein 5.1 L Albumin 2.2 L HDL Cholesterol Procalcitonin Urine Appearance Urine Protein Urine Glucose (UA) Urine Blood Ur Leukocyte Esterase Urine WBC Ur Squamous Epith Cells Urine Mucus 02/06/24 02/06/24 02/06/24 12:35 14:46 18:10 RBC Hgb Hct PT APTT Sodium Chloride Carbon Dioxide BUN Creatinine Glucose POC Glucose (mg/dL) Hemoglobin A1c Calcium Iron TIBC % Saturation Transferrin AST ALT Alkaline Phosphatase Troponin I 1.290 H* 1.760 H* 2.210 H* Total Protein Albumin HDL Cholesterol Procalcitonin Urine Appearance Urine Protein Urine Glucose (UA) Urine Blood Ur Leukocyte Esterase Urine WBC Ur Squamous Epith Cells Urine Mucus 02/06/24 02/06/24 02/07/24 20:34 20:52 03:37 RBC Hgb Hct PT APTT 36.6 H Sodium Chloride Carbon Dioxide BUN Creatinine Glucose POC Glucose (mg/dL) 220 H 48 L Hemoglobin A1c Calcium Iron TIBC % Saturation Transferrin AST ALT Alkaline Phosphatase Troponin I Total Protein Albumin HDL Cholesterol Procalcitonin Urine Appearance Urine Protein Urine Glucose (UA) Urine Blood Ur Leukocyte Esterase Urine WBC Ur Squamous Epith Cells Urine Mucus 02/07/24 02/07/24 02/07/24 03:55 06:47 07:16 RBC 2.31 L Hgb 7.1 L Hct 22.7 L PT APTT Sodium Chloride Carbon Dioxide BUN Creatinine Glucose POC Glucose (mg/dL) 167 H 69 L Hemoglobin A1c Calcium Iron TIBC % Saturation Transferrin AST ALT Alkaline Phosphatase Troponin I Total Protein Albumin HDL Cholesterol Procalcitonin Urine Appearance Urine Protein Urine Glucose (UA) Urine Blood Ur Leukocyte Esterase Urine WBC Ur Squamous Epith Cells Urine Mucus 02/07/24 02/07/24 02/07/24 07:16 07:16 07:29 RBC Hgb Hct PT APTT Sodium 133 L Chloride 110 H Carbon Dioxide 21 L BUN 56 H Creatinine 2.96 H Glucose 51 L POC Glucose (mg/dL) 61 L Hemoglobin A1c Calcium 7.8 L Iron TIBC % Saturation Transferrin AST 55 H ALT 35 H Alkaline Phosphatase 145 H Troponin I Total Protein 4.8 L Albumin 2.1 L HDL Cholesterol 61.90 H Procalcitonin Urine Appearance Urine Protein Urine Glucose (UA) Urine Blood Ur Leukocyte Esterase Urine WBC Ur Squamous Epith Cells Urine Mucus 02/07/24 02/07/24 02/07/24 09:19 10:06 11:05 RBC Hgb Hct PT APTT Sodium Chloride Carbon Dioxide BUN Creatinine Glucose POC Glucose (mg/dL) 69 L Hemoglobin A1c Calcium Iron 16 L TIBC 171 L % Saturation 9.36 L Transferrin 122.0 L AST ALT Alkaline Phosphatase Troponin I Total Protein Albumin HDL Cholesterol Procalcitonin Urine Appearance Cloudy H Urine Protein 3+ H Urine Glucose (UA) 1+ H Urine Blood Trace H Ur Leukocyte Esterase Moderate H Urine WBC 15 H Ur Squamous Epith Cells 7 H Urine Mucus Rare H 02/07/24 02/07/24 02/07/24 16:24 20:48 23:49 RBC Hgb Hct PT APTT Sodium Chloride Carbon Dioxide BUN Creatinine Glucose POC Glucose (mg/dL) 166 H 397 H 226 H Hemoglobin A1c Calcium Iron TIBC % Saturation Transferrin AST ALT Alkaline Phosphatase Troponin I Total Protein Albumin HDL Cholesterol Procalcitonin Urine Appearance Urine Protein Urine Glucose (UA) Urine Blood Ur Leukocyte Esterase Urine WBC Ur Squamous Epith Cells Urine Mucus 02/08/24 02/08/24 02/08/24 05:46 07:39 07:39 RBC Hgb Hct PT APTT Sodium Chloride Carbon Dioxide BUN Creatinine Glucose POC Glucose (mg/dL) 276 H Hemoglobin A1c 7.1 H Calcium Iron TIBC % Saturation Transferrin AST ALT Alkaline Phosphatase Troponin I Total Protein Albumin HDL Cholesterol Procalcitonin 0.92 H Urine Appearance Urine Protein Urine Glucose (UA) Urine Blood Ur Leukocyte Esterase Urine WBC Ur Squamous Epith Cells Urine Mucus 02/08/24 02/08/24 02/08/24 07:39 07:39 09:05 RBC 2.28 L Hgb 7.1 L Hct 22.0 L PT APTT Sodium 130 L Chloride Carbon Dioxide 17 L BUN 63 H Creatinine 3.34 H Glucose 229 H POC Glucose (mg/dL) 203 H Hemoglobin A1c Calcium 7.9 L Iron TIBC % Saturation Transferrin AST ALT Alkaline Phosphatase Troponin I Total Protein Albumin HDL Cholesterol Procalcitonin Urine Appearance Urine Protein Urine Glucose (UA) Urine Blood Ur Leukocyte Esterase Urine WBC Ur Squamous Epith Cells Urine Mucus 02/08/24 11:30 RBC Hgb Hct PT APTT Sodium Chloride Carbon Dioxide BUN Creatinine Glucose POC Glucose (mg/dL) 366 H Hemoglobin A1c Calcium Iron TIBC % Saturation Transferrin AST ALT Alkaline Phosphatase Troponin I Total Protein Albumin HDL Cholesterol Procalcitonin Urine Appearance Urine Protein Urine Glucose (UA) Urine Blood Ur Leukocyte Esterase Urine WBC Ur Squamous Epith Cells Urine Mucus - Diagnostic Findings Chest x-ray: image reviewed Assessment and Plan Assessment: Acute non-ST elevation NC, patient was initially placed on heparin infusion per protocol, which is currently paused. Also has Nitropaste on. Denies any further chest pain. Acute hypoxemic respiratory failure, currently on 2 L/min nasal cannula, secondary to exacerbation of systolic congestive heart failure and above, Chest x-ray on admission shows diffuse interstitial edema as well as bilateral con solidation and small effusions. Findings consistent with congestive heart failure, however, superimposed community-acquired bibasilar pneumonia is not excluded. Ischemic cardiomyopathy with an estimated left ventricular ejection fraction severely impaired at 20 to 25% as well as moderate to severe mitral valve regurgitation, currently on Lasix infusion at 5 mg/h Severe mitral valve regurgitation Acute febrile illness, empirically covered on antibiotics Normocytic normochromic anemia, no overt signs of bleeding, being evaluated by general surgery. Acute kidney injury, likely cardiorenal, worsening creatinine up to 3.34 Metabolic non-anion gap acidosis, secondary to above Chronic obstructive pulmonary disease, stable Diabetes mellitus type 1 History of hyperlipidemia History of hypertension History of CVA/TIA History of hypothyroidism History of fibromyalgia History of GERD Mildly elevated LFTs, hepatitis panel nonreactive Former tobacco smoker as of 55 days ago, before this 1/2 pack/day or approximately 15-year pack history' Plan: Patient's medications, labs, chest x-ray reviewed Patient was initially started on heparin infusion per protocol, which is on hold secondary to patient's anemia. No obvious overt signs of acute blood loss. Continue Nitropaste, patient currently denies any chest pain. No plans for heat catheterization at this time. Patient has worsening renal functioning. Nephrology is also following. Renal bladder ultrasound pending. Started on beta-alex, statin, and aspirin. RAN inhibitor is on hold secondary to patient's kidney function Patient continues on a Lasix infusion at 5 mg/h. Monitor urine output and renal function Patient continues on empiric antibiotics. Procalcitonin elevated at 0.92. GI has evaluated patient's for anemia, unknown if acute or chronic, no plans for surgical intervention at this time. Receiving IV iron infusion Pepcid for GI prophylaxis COPD maintenance inhalers have been resumed, continue Flovent and as needed albuterol nebs. We will continue to follow I have personally seen and examined the patient, performed the documentation and the assessment and plan as written. Number of minutes spent on the visit:20 .This is a joint evaluation that was done along with the nurse practitioner. Th is evaluation was done in more than 30 minutes. In summary, the patient has a complex history. She essentially presented to us with shortness of breath. She was having chest pain earlier. She did sustain an acute non-ST segment elevation myocardial infarction. Troponins peaked at 2.12. At same time, the patient had an echocardiogram that showed CHF with an ejection fraction of 20 to 25% and moderate to severe mitral regurgitation. EKG showing septal Q waves. The patient is currently on oxygen at 2 L. The patient also has a component of acute kidney injury related to cardiorenal factors. She is being seen by various consultants. Not a candidate for cardiac catheterization because of her underlying renal dysfunction and the patient is being treated medically. Reviewed the chest x-ray is consistent with CHF with possible small bilateral pleural effusions. The patient is currently on Lasix drip at 5 mg an hour. Will monitor fluid balance. Will monitor renal function. GI will continue to follow. Time with Patient: Greater than 30
--- NOTE | 2024-02-08 15:09 | P.PN ---
Subjective Progress Note Date: 02/08/24 Principal diagnosis: Anemia This is a pleasant 58-year-old female who is currently incarcerated who was brought into the emergency department with complaints of shortness of breath and lower extremity swelling. She has a past medical history of kidney disease, COPD, diabetes mellitus, TIA, GERD, hyperlipidemia, hypertension, liver disease and thyroid disorder. Patient states that she was diagnosed with hepatitis as a child. Patient was NSTEMI and was started on a heparin drip. She was seen by cardiology this morning and they recommended discontinuing heparin drip. Loly wang was noted to be anemic on admission. Gastroenterology was consulted for anemia. She denies any previous history of anemia. Denies any previous history of GI bleed. Denies any blood in her stool or black stool no abdominal pain nausea or vomiting. She denies any anticoagulation. She states her last EGD and colonoscopy was around 10 years ago. She states that she was told that she had a hole in her colon so they did an exploratory laparotomy however there was no hole and nothing further was done. She states initially that she was diagnosed with kidney disease a year ago but then also states that she was diagnosed 4 years ago with acute kidney injury from IV antibiotics. She denies any new medications. States that she has been on Lipitor for 1 year she was noted to have some mildly elevated LFTs as well. 02/08/2024 Patient is seen and examined today as a follow-up. She continues to deny any abdominal pain, nausea or vomiting. Denies any rectal bleeding or blood in her stool. She is having increased shortness of breath today and is requiring 3 L of nasal cannula. Chest x-ray reports correlate for CHF. Iron was low however ferritin was normal. Patient likely has anemia of chronic disease. WBC 6.7 hemoglobin 7.1 hematocrit 22 platelet count 306,000 sodium 130 potassium 5.1 BUN 63 creatinine 3.3 iron 16 TIBC 171 saturation 9.3 ferritin 111 Objective - Vital Signs Vital signs: Vital Signs Temp 97.3 F L 02/08/24 08:00 Pulse 87 02/08/24 08:00 Resp 20 02/08/24 08:00 BP 120/63 02/08/24 08:00 Pulse Ox 94 L 02/08/24 08:00 FiO2 Intake & Output 02/07/24 02/08/24 02/08/24 18:59 06:59 18:59 Intake Total 240 10 Output Total 0 650 Balance 240 -640 Weight 73.4 kg 70.4 kg Intake: IV 10 Invasive Line 1 10 Oral 240 0 Output: Urine 650 Post Void Residual 0 Other: Voiding Method Toilet Bedside Commode # Bowel Movements 0 - Exam General appearance: The patient is alert, oriented, appears ill, appears in no acute distress. HET: Head is normocephalic and atraumatic. Conjunctiva pink. Sclera anicteric. Neck: Supple without lymphadenopathy. Abdomen: Soft, nontender, nondistended with bowel sounds. No guarding or rigidity. Extremities: Normal skin color and turgor. No pedal edema Skin: No rashes, no jaundice Neurological: No focal deficits. Alert and oriented. - Labs CBC & Chem 7: 02/08/24 07:39 02/08/24 07:39 Labs: Abnormal Lab Results - Last 24 Hours (Table) 02/07/24 02/07/24 02/07/24 Range/Units 07:16 09:19 10:06 RBC (3.80-5.40) m/uL Hgb (11.4-16.0) gm/dL Hct (34.0-46.0) % Sodium (137-145) mmol/L Carbon Dioxide (22-30) mmol/L BUN (7-17) mg/dL Creatinine (0.52-1.04) mg/dL Glucose (74-99) mg/dL POC Glucose (mg/dL) 69 L (70-110) mg/dL Calcium (8.4-10.2) mg/dL Iron 16 L (50-170) UG/DL TIBC 171 L (228-460) UG/DL % Saturation 9.36 L (12.00-45.00) Transferrin 122.0 L (204.0-354.0) mg/dL HDL Cholesterol 61.90 H (40.00-60.00) mg/dL Urine Appearance (Clear) Urine Protein (Negative) Urine Glucose (UA) (Negative) Urine Blood (Negative) Ur Leukocyte Esterase (Negative) Urine WBC (0-5) /hpf Ur Squamous Epith Cells (0-4) /hpf Urine Mucus (None) /hpf 02/07/24 02/07/24 02/07/24 Range/Units 11:05 16:24 20:48 RBC (3.80-5.40) m/uL Hgb (11.4-16.0) gm/dL Hct (34.0-46.0) % Sodium (137-145) mmol/L Carbon Dioxide (22-30) mmol/L BUN (7-17) mg/dL Creatinine (0.52-1.04) mg/dL Glucose (74-99) mg/dL POC Glucose (mg/dL) 166 H 397 H (70-110) mg/dL Calcium (8.4-10.2) mg/dL Iron (50-170) UG/DL TIBC (228-460) UG/DL % Saturation (12.00-45.00) Transferrin (204.0-354.0) mg/dL HDL Cholesterol (40.00-60.00) mg/dL Urine Appearance Cloudy H (Clear) Urine Protein 3+ H (Negative) Urine Glucose (UA) 1+ H (Negative) Urine Blood Trace H (Negative) Ur Leukocyte Esterase Moderate H (Negative) Urine WBC 15 H (0-5) /hpf Ur Squamous Epith Cells 7 H (0-4) /hpf Urine Mucus Rare H (None) /hpf 02/07/24 02/08/24 02/08/24 Range/Units 23:49 05:46 07:39 RBC 2.28 L (3.80-5.40) m/uL Hgb 7.1 L (11.4-16.0) gm/dL Hct 22.0 L (34.0-46.0) % Sodium (137-145) mmol/L Carbon Dioxide (22-30) mmol/L BUN (7-17) mg/dL Creatinine (0.52-1.04) mg/dL Glucose (74-99) mg/dL POC Glucose (mg/dL) 226 H 276 H (70-110) mg/dL Calcium (8.4-10.2) mg/dL Iron (50-170) UG/DL TIBC (228-460) UG/DL % Saturation (12.00-45.00) Transferrin (204.0-354.0) mg/dL HDL Cholesterol (40.00-60.00) mg/dL Urine Appearance (Clear) Urine Protein (Negative) Urine Glucose (UA) (Negative) Urine Blood (Negative) Ur Leukocyte Esterase (Negative) Urine WBC (0-5) /hpf Ur Squamous Epith Cells (0-4) /hpf Urine Mucus (None) /hpf 02/08/24 02/08/24 Range/Units 07:39 09:05 RBC (3.80-5.40) m/uL Hgb (11.4-16.0) gm/dL Hct (34.0-46.0) % Sodium 130 L (137-145) mmol/L Carbon Dioxide 17 L (22-30) mmol/L BUN 63 H (7-17) mg/dL Creatinine 3.34 H (0.52-1.04) mg/dL Glucose 229 H (74-99) mg/dL POC Glucose (mg/dL) 203 H (70-110) mg/dL Calcium 7.9 L (8.4-10.2) mg/dL Iron (50-170) UG/DL TIBC (228-460) UG/DL % Saturation (12.00-45.00) Transferrin (204.0-354.0) mg/dL HDL Cholesterol (40.00-60.00) mg/dL Urine Appearance (Clear) Urine Protein (Negative) Urine Glucose (UA) (Negative) Urine Blood (Negative) Ur Leukocyte Esterase (Negative) Urine WBC (0-5) /hpf Ur Squamous Epith Cells (0-4) /hpf Urine Mucus (None) /hpf Assessment and Plan (1) Normocytic normochromic anemia Narrative/Plan: 58-year-old female presenting to the emergency department with shortness of breath and lower extremity swelling evaluated for NSTEMI by cardiology and was initially started on a heparin drip however has been discontinued due to her an emia. Patient was noted to be anemic with a hemoglobin of 7.7 with a normocytic normochromic anemia. It is unclear if patient has chronic anemia however last blood count in our system from 2021 had a hemoglobin of 12.0 however trending she has had some anemia in the past. She has had upper endoscopy and lower endoscopy about 10 years ago. Patient denies any blood in her stool or black stool, no nausea or vomiting or hematemesis. No elevation in her BUN, patient does have multiple comorbidities including possible heart failure, COPD, diabetes mellitus, and kidney disease. Will order iron studies. Likely this is anemia of chronic disease. Further recommendations forthcoming. Iron studies reviewed, although iron was low ferritin was normal at 111. Parenteral iron ordered per nephrology. Patient continues to have no signs of GI bleed. She is having increased shortness of breath and has been started on Lasix drip and requiring oxygen supplementation. Will defer any endoscopic ev aluation to outpatient. Current Visit: Yes Status: Acute Code(s): D64.9 - ANEMIA, UNSPECIFIED SNOMED Code(s): 98095532 (2) Renal failure Current Visit: Yes Status: Acute Code(s): N19 - UNSPECIFIED KIDNEY FAILURE SNOMED Code(s): 28494871 (3) COPD (chronic obstructive pulmonary disease) Current Visit: Yes Status: Acute Code(s): J44.9 - CHRONIC OBSTRUCTIVE PULMONARY DISEASE, UNSPECIFIED SNOMED Code(s): 79216022 (4) Shortness of breath Current Visit: Yes Status: Acute Code(s): R06.02 - SHORTNESS OF BREATH SNOMED Code(s): 667924644 (5) NSTEMI (non-ST elevated myocardial infarction) Current Visit: Yes Status: Acute Code(s): I21.4 - NON-ST ELEVATION (NSTEMI) MYOCARDIAL INFARCTION SNOMED Code(s): 06830139 (6) Diabetes mellitus Current Visit: No Status: Acute Code(s): E11.9 - TYPE 2 DIABETES MELLITUS WITHOUT COMPLICATIONS SNOMED Code(s): 26608598 (7) Elevated LFTs Narrative/Plan: Patient with mildly elevated LFTs. States history of hepatitis as a child. Will obtain hepatitis panel. Current Visit: Yes Status: Acute Code(s): R79.89 - OTHER SPECIFIED ABNORMAL FINDINGS OF BLOOD CHEMISTRY SNOMED Code(s): 889754860 (8) Obesity Current Visit: Yes Status: Acute Code(s): E66.9 - OBESITY, UNSPECIFIED SNOMED Code(s): 689150292 Plan: 1. Continue symptomatic and supportive care 2. Daily CBC, transfuse for hemoglobin less than 7 3. Iron studies ordered and reviewed 4. Nephrology following for kidney disease 6. Parental iron ordered 7. Cardiology following 8. Protonix 40 mg daily for GI prophylaxis 9. No plans on endoscopic evaluation at this time due to poor respiratory and kidney status. Patient without any signs of GI bleed, recommend outpatient upper and lower endoscopy when patient more stable. Thank you for this consultation, we will sign off at this time. There will be no in-house gastroenterology available next week. Patient will need to be scheduled for outpatient upper and lower endoscopy. Dr. Bibiana Sands I agree with the dictator's note, documented as a scribe by Queta Petersen.
[2024-02-08 15:54] LABS: Hepatitis A Antibody IgM Nonreactive (Nonreactive); Hepatitis B Core IgM Nonreactive (Nonreactive); Hepatitis B Surface Antigen Nonreactive (Nonreactive); Hepatitis C IgG Antibody Nonreactive (Nonreactive)
[2024-02-08 16:37] LABS: Glucose,Whole Blood 119 mg/dL (70-110)
[2024-02-08 17:46] LABS: DNA Double-Stranded Negative (Negative)
[2024-02-08 20:09] LABS: Glucose,Whole Blood 157 mg/dL (70-110)
[2024-02-09 06:02] LABS: Glucose,Whole Blood 404 mg/dL (70-110)
--- NOTE | 2024-02-09 08:39 | P.PN ---
Subjective This is a pleasant 58 years old female with past medical history of multiple medical problems as below She has been incarcerated for 52 days, there is officer at bedside. Patient presents because of shortness of breath and exertional dyspnea has for the last 2 days, she states she hears herself wheezing when she lies down. Currently she is breathing quietly. She is complaining for mild chest pain on the left side, nonradiating nonspecific, feels much better now and very mild. She has occasional cough but no phlegm. Also she is complaining from upset stomach but no diarrhea or vomiting She complains from decreased urination but no dysuria or urgency. She has mild headache feels generally weak but no dizziness or blurry vision. She used to smoke half pack per day before she got incarcerated No alcohol or illicit drugs. She follow-up with her center lead consultant Dr. Donal Herrera and level designer Dr. Babb who examined her about 2 months ago where she has some mild ulcer In the bottom of her right total This morning patient has low-grade fever 100.2 She is also mildly tachypneic around 22 She is saturating 93% on 2 L oxygen via nasal cannula Labs reviewed showing hemoglobin of 7.7, rest of CBC is unremarkable BMP liver enzymes not elevated. INR 0.9. Lactic 0.9 proBNP is elevated 25 100 EKG showing sinus rhythm at [address]-T changes, no left bundle branch block 02/08/2024 Patient lying in bed, relaxed however she has mild tachypnea, mild distress She has significant coughing but she denies chest pain. Normal palpitation but patient has bilateral leg swelling No abdominal pain, no suprapubic pain or tenderness. But she has increased frequency of urination, last night she peed 4 times which is unusual for her. Urine analysis suspicious for infection and patient had low-grade temperature of 100.2 and she was started on Rocephin pending urine culture. Bladder scan was checked it was -101-150. She has about 900-1000 mL of urine output overnight.. Glucose improved after we stopped her Levemir 8 units twice daily, recommend to start it as 5 units daily. Continue with sliding scale. Also because of her tachypnea we will going to repeat chest x-ray. Renal function has worsened to 3.3 in the close were consulted. No evidence of hypotension. No NSAIDs Hemoglobin stable at 7.1, no need for endoscopy by a GI team. Workup so far showing anemia of chronic disease, B12 and folate is pending. Patient continued on heparin drip for her non-STEMI. We are going to check occult blood in the stool Patient currently on IV Lasix 40 mg 3 times a day. We lowered to twice a day g iven worsening renal function. Further recommendation pending further workup like chest x-ray 02/09/2024 Patient still complaining of shortness of breath but improving. Leg swelling is coming down No chest pain. Patient remains on Lasix drip. Heparin drip was discontinued Her creatinine was elevated yesterday, she has evidence of urine retention and Saldaña catheter was placed IV Lasix was switched to Lasix drip 5 mg/h. Repeat 2.2 L yesterday Saldaña catheter in place She is currently also on aspirin. Urine culture is negative she remains on ceftriaxone. Pneumonia also not entirely excluded. Check pro- Calcitonin tomorrow and repeat chest x-ray tomorrow General ultrasound at bedside Review of systems CONSTITUTIONAL: No fever, no malaise, no fatigue. HEENT: No recent visual problems or hearing problems. Denied any sore throat. NEUROLOGICAL: No headaches, no weakness, no numbness. HEMATOLOGICAL: Denies any bleeding or petechiae. GENITOURINARY: Denies any burning micturition, frequency, or urgency. MUSCULOSKELETAL/RHEUMATOLOGICAL: Denies any joint pain, swelling, or any muscle pain. ENDOCRINE: Denies any polyuria or polydipsia. Active Medications Generic Name Dose Route Start Last Admin Trade Name Freq PRN Reason Stop Dose Admin Acetaminophen 650 mg 02/06/24 14:30 02/09/24 04:27 Acetaminophen Tab 325 Mg Tab PO 650 mg BID PRN Administration Pain or Fever > 100.5 Albuterol Sulfate 2.5 mg 02/06/24 14:30 02/07/24 16:31 Albuterol Nebulized 2.5 Mg/3 Ml INHALATION 2.5 mg RT-TID PRN Administration Shortness Of Breath Aspirin 81 mg 02/08/24 09:00 02/09/24 08:23 Aspirin 81 Mg PO 81 mg DAILY LYNDSAY Administration Atorvastatin Calcium 40 mg 02/07/24 21:00 02/08/24 20:51 Atorvastatin 40 Mg Tab PO 40 mg HS LYNDSAY Administration Dextrose/Water 25 ml 02/07/24 07:11 02/07/24 07:40 Dextrose 50% Syringe 50 Ml IVP 25 ml PER PROTOCOL PRN Administration Hypoglycemia Protocol Dextrose/Water 50 ml 02/07/24 07:11 Dextrose 50% Syringe 50 Ml IVP PER PROTOCOL PRN Hypoglycemia Protocol Famotidine 20 mg 02/07/24 09:00 02/09/24 08:23 Famotidine 20 Mg/2 Ml Vial IV 20 mg DAILY LYNDSAY Administration Fluticasone Propionate 2 puff 02/06/24 20:00 02/08/24 19:54 Fluticasone 110 Mcg Inhaler INHALATION 2 puff RT-BID LYNDSAY Administration Guaifenesin/Dextromethorphan 10 ml 02/08/24 08:40 Guaifenesin-Dm 100-10mg/5ml 10 Ml Cup PO 03/09/24 08:41 Q6HR PRN Cough Heparin Sodium (Porcine) 0 unit 02/06/24 14:34 02/07/24 00:56 Heparin Sodium 1,000 Un/Ml (10ml Vl) IV 1,814 unit PER PROTOCOL PRN Administration Low PTT Protocol Ceftriaxone Sodium 1 gm/ 50 mls @ 100 mls/hr 02/08/24 09:00 02/09/24 08:22 Sodium Chloride IVPB 100 mls/hr Q24HR LYNDSAY Administration Protocol Furosemide 100 mg/ Sodium 100 mls @ 5 mls/hr 02/08/24 10:45 02/09/24 02:01 Chloride IV 5 mg/hr .Q20H LYNDSAY 5 mls/hr Administration 5 MG/HR Ferric Sodium Gluconate 125 mg 110 mls @ 100 mls/hr 02/08/24 11:00 02/08/24 11:46 / Sodium Chloride IVPB 02/11/24 11:01 100 mls/hr DAILY LYNDSAY Administration Insulin Aspart 0 unit 02/07/24 07:30 02/09/24 06:25 Insulin Aspart (Novolog) 100 Unit/Ml Vial SQ 6 unit ACHS LYNDSAY Administration Protocol Insulin Detemir 5 unit 02/08/24 09:00 02/09/24 06:25 Insulin Detemir (Levemir) 100 Unit/Ml Syr SQ 5 unit DAILY@0700 LYNDSAY Administration Insulin Human Regular 2 unit 02/06/24 14:30 Insulin Regular 100 Unit/Ml Vial (Iv) SQ TID PRN BS below 150, gets 2 units Levothyroxine Sodium 176 mcg 05/01/24 06:30 02/09/24 06:20 Levothyroxine 88 Mcg Tab PO 176 mcg DAILY@0630 LYNDSAY Administration Metoprolol Tartrate 25 mg 02/07/24 09:00 02/09/24 08:23 Metoprolol Tartrate 25 Mg Tab PO 25 mg BID LYNDSAY Administration Nitroglycerin 0.5 inch 02/08/24 11:00 02/09/24 08:23 Nitroglycerin Oint 1 Inch/Gm Packet TOPICAL 0.5 inch Q8HR LYNDSAY Administration Sodium Bicarbonate 650 mg 02/08/24 11:00 02/09/24 08:23 Sodium Bicarbonate Tab 650 Mg Tab PO 650 mg BID LYNDSAY Administration Objective - Vital Signs Vital signs: Vital Signs Temp 97.8 F 02/09/24 08:00 Pulse 92 02/09/24 08:00 Resp 22 02/09/24 08:00 BP 122/68 02/09/24 08:00 Pulse Ox 93 L 02/09/24 08:00 FiO2 Intake & Output 02/08/24 02/09/24 02/09/24 18:59 06:59 18:59 Intake Total 420 431.167 Output Total 1500 900 Balance -1080 -468.833 Weight 70.4 kg 73.3 kg Intake: Intake, IV Titration 71.167 Amount Furosemide 100 mg In 71.167 Sodium Chloride 0.9% 90 ml @ 5 MG/HR 5 mls/hr IV .Q20H LYNDSAY Rx#:[id number] Oral 420 360 Output: Urine 1400 900 Uretheral (Saldaña) 700 Post Void Residual 100 Other: Voiding Method Indwelling Catheter Bedside Commode Indwelling Catheter - Exam -GENERAL: The patient is alert and oriented x3, not in any acute distress. Well developed, well nourished. Generally weak and lethargic HEENT: Pupils are round and equally reacting to light. EOMI. No scleral icterus. No conjunctival pallor. Normocephalic, atraumatic. No pharyngeal erythema. No thyromegaly. CARDIOVASCULAR: S1 and S2 present. No murmurs, rubs, or gallops. -PULMONARY: Chest is clear to auscultation, no wheezing , no crackles. Tachypnea -ABDOMEN: Soft, nontender, nondistended, normoactive bowel sounds. No palpable organomegaly. Saldaña catheter in place MUSCULOSKELETAL: No joint swelling or deformity. -EXTREMITIES: No cyanosis, clubbing, 1+ bilateral pitting leg edema. NEUROLOGICAL: Gross neurological examination did not reveal any focal deficits. SKIN: No rashes. no petechiae. - Labs CBC & Chem 7: 02/08/24 07:39 02/08/24 07:39 Labs: Abnormal Lab Results - Last 24 Hours (Table) 02/08/24 02/08/24 02/08/24 Range/Units 07:39 07:39 09:05 POC Glucose (mg/dL) 203 H (70-110) mg/dL Hemoglobin A1c 7.1 H (<=6.0) % Total Protein (PEP) (6.2-8.2) g/dL Procalcitonin 0.92 H (0.02-0.09) ng/mL Complement C4 (10.0-53.0) mg/dL Tot Complement (CH50) (42 - 95) U/mL 02/08/24 02/08/24 02/08/24 Range/Units 10:51 10:51 10:51 POC Glucose (mg/dL) (70-110) mg/dL Hemoglobin A1c (<=6.0) % Total Protein (PEP) 5.0 L (6.2-8.2) g/dL Procalcitonin (0.02-0.09) ng/mL Complement C4 58.8 H (10.0-53.0) mg/dL Tot Complement (CH50) >97 H (42 - 95) U/mL 02/08/24 02/08/24 02/08/24 Range/Units 11:30 16:36 20:08 POC Glucose (mg/dL) 366 H 119 H 157 H (70-110) mg/dL Hemoglobin A1c (<=6.0) % Total Protein (PEP) (6.2-8.2) g/dL Procalcitonin (0.02-0.09) ng/mL Complement C4 (10.0-53.0) mg/dL Tot Complement (CH50) (42 - 95) U/mL 02/09/24 Range/Units 06:01 POC Glucose (mg/dL) 404 H (70-110) mg/dL Hemoglobin A1c (<=6.0) % Total Protein (PEP) (6.2-8.2) g/dL Procalcitonin (0.02-0.09) ng/mL Complement C4 (10.0-53.0) mg/dL Tot Complement (CH50) (42 - 95) U/mL Microbiology - Last 24 Hours (Table) 02/07/24 11:05 Urine Culture - Final Urine,Voided 02/07/24 10:01 Blood Culture - Preliminary Blood Assessment and Plan Assessment: Acute CHF exacerbation, unknown ejection fraction Chest pain with elevated troponin suspicious for non-STEMI, ekg New left bundle branch block Mild hypoxic respiratory failure Acute kidney injury on chronic kidney disease, nonoliguric Acute on chronic anemia of chronic disease Acute urinary tract infection, urine culture showing skin or genital kwesi Diabetes mellitus with hypoglycemia Low-grade fever Nicotine dependence 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 Change Levemir dose 3 units twice daily. at home she was taking 8 units twice daily Labs and medication were reviewed.. Continue same treatment. Continue with symptomatic treatment. Resume home medication. Monitor labs and vitals. DVT and GI prophylaxis. Further recommendations as per clinical course of the patient DVT prophylaxis: heparin GI Prophylaxis: Pepcid Prognosis is guarded given her multiple disease of the heart kidneys sinus infection
[2024-02-09 10:30] LABS: African American GFR (CKD) 16 (>60 ml/min/1.73 sqM); Anion Gap 8 mmol/L; Blood Urea Nitrogen 66 mg/dL (7-17); Calcium 8.1 mg/dL (8.4-10.2); Carbon Dioxide 16 mmol/L (22-30); Chloride 105 mmol/L (98-107); Glucose 196 mg/dL (74-99); Non-African American GFR(CKD) 14 (>60 ml/min/1.73 sqM); Potassium 4.4 mmol/L (3.5-5.1); Sodium 129 mmol/L (137-145)
[2024-02-09 10:49] LABS: Basophils % (A) 1 %; Eosinophils # (A) 0.1 k/uL (0-0.7); Eosinophils % (A) 1 %; HCT 22.6 % (34.0-46.0); HGB 7.4 gm/dL (11.4-16.0); Lymphocytes # (A) 1.5 k/uL (1.0-4.8); Lymphocytes % (A) 24 %; MCH 30.2 pg (25.0-35.0); MCHC 32.7 g/dL (31.0-37.0); MCV 92.4 fL (80.0-100.0); Mean Platelet Volume 8.7; Monocytes # (A) 0.5 k/uL (0-1.0); Monocytes % (A) 8 %; Neutrophils % (A) 64 %; Platelet Count 290 k/uL (150-450); RBC 2.44 m/uL (3.80-5.40); RDW 11.9 % (11.5-15.5); WBC 6.3 k/uL (3.8-10.6)
--- NOTE | 2024-02-09 11:18 | P.PN ---
Subjective Patient is seen in follow-up for acute kidney injury. Renal function fairly stable. Currently on Lasix drip. Has Saldaña catheter for urinary retention. Nonoliguric. Vital signs are stable. General: No acute distress. HEENT: Head exam is unremarkable. On nasal cannula. LUNGS: No audible rhonchi or wheezes. HEART: Rate and Rhythm are regular. ABDOMEN: Nontender. EXTREMITITES: No edema. Objective - Vital Signs Vital signs: Vital Signs Temp 97.8 F 02/09/24 08:00 Pulse 86 02/09/24 08:00 Resp 22 02/09/24 08:00 BP 122/68 02/09/24 08:00 Pulse Ox 94 L 02/09/24 08:36 FiO2 Intake & Output 02/08/24 02/09/24 02/09/24 18:59 06:59 18:59 Intake Total 420 431.167 Output Total 1500 900 [place] -6425 -972.833 Weight 70.4 kg 73.3 kg Intake: Intake, IV Titration 71.167 Amount Furosemide 100 mg In 71.167 Sodium Chloride 0.9% 90 ml @ 5 MG/HR 5 mls/hr IV .Q20H [facility] Rx#:[id number] Oral 420 360 Output: Urine 1400 900 Uretheral (Saldaña) 700 Post Void Residual 100 Other: Voiding Method Indwelling Catheter Bedside Commode Bedside Commode Indwelling Catheter Indwelling Catheter - Labs CBC & Chem 7: 02/09/24 09:22 02/09/24 09:22 Labs: Abnormal Lab Results - Last 24 Hours (Table) 02/08/24 02/08/24 02/08/24 Range/Units 07:39 10:51 10:51 RBC (3.80-5.40) m/uL Hgb (11.4-16.0) gm/dL Hct (34.0-46.0) % Sodium (137-145) mmol/L Carbon Dioxide (22-30) mmol/L BUN (7-17) mg/dL Creatinine (0.52-1.04) mg/dL Glucose (74-99) mg/dL POC Glucose (mg/dL) (70-110) mg/dL Calcium (8.4-10.2) mg/dL Total Protein (PEP) (6.2-8.2) g/dL Procalcitonin 0.92 H (0.02-0.09) ng/mL Complement C4 58.8 H (10.0-53.0) mg/dL Tot Complement (CH50) >97 H (42 - 95) U/mL 02/08/24 02/08/24 02/08/24 Range/Units 10:51 11:30 16:36 RBC (3.80-5.40) m/uL Hgb (11.4-16.0) gm/dL Hct (34.0-46.0) % Sodium (137-145) mmol/L Carbon Dioxide (22-30) mmol/L BUN (7-17) mg/dL Creatinine (0.52-1.04) mg/dL Glucose (74-99) mg/dL POC Glucose (mg/dL) 366 H 119 H (70-110) mg/dL Calcium (8.4-10.2) mg/dL Total Protein (PEP) 5.0 L (6.2-8.2) g/dL Procalcitonin (0.02-0.09) ng/mL Complement C4 (10.0-53.0) mg/dL Tot Complement (CH50) (42 - 95) U/mL 02/08/24 02/09/24 02/09/24 Range/Units 20:08 06:01 09:22 RBC 2.44 L (3.80-5.40) m/uL Hgb 7.4 L (11.4-16.0) gm/dL Hct 22.6 L (34.0-46.0) % Sodium (137-145) mmol/L Carbon Dioxide (22-30) mmol/L BUN (7-17) mg/dL Creatinine (0.52-1.04) mg/dL Glucose (74-99) mg/dL POC Glucose (mg/dL) 157 H 404 H (70-110) mg/dL Calcium (8.4-10.2) mg/dL Total Protein (PEP) (6.2-8.2) g/dL Procalcitonin (0.02-0.09) ng/mL Complement C4 (10.0-53.0) mg/dL Tot Complement (CH50) (42 - 95) U/mL 02/09/24 Range/Units 09:22 RBC (3.80-5.40) m/uL Hgb (11.4-16.0) gm/dL Hct (34.0-46.0) % Sodium 129 L (137-145) mmol/L Carbon Dioxide 16 L (22-30) mmol/L BUN 66 H (7-17) mg/dL Creatinine 3.41 H (0.52-1.04) mg/dL Glucose 196 H (74-99) mg/dL POC Glucose (mg/dL) (70-110) mg/dL Calcium 8.1 L (8.4-10.2) mg/dL Total Protein (PEP) (6.2-8.2) g/dL Procalcitonin (0.02-0.09) ng/mL Complement C4 (10.0-53.0) mg/dL Tot Complement (CH50) (42 - 95) U/mL Microbiology - Last 24 Hours (Table) 02/07/24 11:05 Urine Culture - Final Urine,Voided 02/07/24 10:01 Blood Culture - Preliminary Blood Assessment and Plan Plan: Assessment: 1. Acute kidney injury secondary to ATN. Creatinine stable at 3.41 today. Creatinine as low as 0.98 dated March 01, 2022. No hydronephrosis noted on kidney ultrasound. 2. Acute on chronic systolic CHF with ejection fraction of 20 to 25% with moderate to severe mitral regurgitation and mild pulmonary hypertension. 3. Volume overload. Improving with diuresis. 4. Anemia. Iron deficiency noted. GI following. 5. Metabolic acidosis secondary to acute kidney injury. On oral bicarb. 6. Hypervolemic hyponatremia. Also component of hypertonicity from hyperglycemia. 7. Urinary retention status post Saldaña catheter placement. Plan: Maintain Lasix drip. Add Flomax. Strict I's and O's. Follow-up serologies. Negative so far. Add 1200 cc fluid restriction. Blood glucose control. Continue to monitor renal function and urine output. Increase dose of sodium bicarb. Maintain IV iron. Add Aranesp.
[2024-02-09 11:25] LABS: C-ANCA <1:20 Titer (<1:20)
[2024-02-09 11:51] LABS: Glucose,Whole Blood 135 mg/dL (70-110)
[2024-02-09] MEDS: DARBEPOETIN ALFA 40 MCG/0.4 ML SYRINGE SQ SCH (12:24)
[2024-02-09] MEDS: TAMSULOSIN 0.4 MG CAP.ER.24H PO SCH (12:24)
--- NOTE | 2024-02-09 13:32 | P.PN ---
Subjective Progress Note Date: 02/09/24 Principal diagnosis: Anemia This is a pleasant 58-year-old female who is currently incarcerated who was brought into the emergency department with complaints of shortness of breath and lower extremity swelling. She has a past medical history of kidney disease, COPD, diabetes mellitus, TIA, GERD, hyperlipidemia, hypertension, liver disease and thyroid disorder. Patient states that she was diagnosed with hepatitis as a child. Patient was NSTEMI and was started on a heparin drip. She was seen by cardiology this morning and they recommended discontinuing heparin drip. Loly wang was noted to be anemic on admission. Gastroenterology was consulted for anemia. She denies any previous history of anemia. Denies any previous history of GI bleed. Denies any blood in her stool or black stool no abdominal pain nausea or vomiting. She denies any anticoagulation. She states her last EGD and colonoscopy was around 10 years ago. She states that she was told that she had a hole in her colon so they did an exploratory laparotomy however there was no hole and nothing further was done. She states initially that she was diagnosed with kidney disease a year ago but then also states that she was diagnosed 4 years ago with acute kidney injury from IV antibiotics. She denies any new medications. States that she has been on Lipitor for 1 year she was noted to have some mildly elevated LFTs as well. 02/08/2024 Patient is seen and examined today as a follow-up. She continues to deny any abdominal pain, nausea or vomiting. Denies any rectal bleeding or blood in her stool. She is having increased shortness of breath today and is requiring 3 L of nasal cannula. Chest x-ray reports correlate for CHF. Iron was low however ferritin was normal. Patient likely has anemia of chronic disease. WBC 6.7 hemoglobin 7.1 hematocrit 22 platelet count 306,000 sodium 130 potassium 5.1 BUN 63 creatinine 3.3 iron 16 TIBC 171 saturation 9.3 ferritin 111 02/09/2024 Patient seen and examined as a follow-up. She is resting comfortably. She denies any abdominal pain, nausea or vomiting. She denies any blood in her stool or black stool. Reports still short of breath states that she is hungry. She has been tolerating clear liquid diet. Repeat hemoglobin 7.4 Objective - Vital Signs Vital signs: Vital Signs Temp 97.7 F 02/09/24 04:00 Pulse 107 H 02/09/24 04:00 Resp 18 02/09/24 04:00 BP 115/76 02/09/24 04:00 Pulse Ox 92 L 02/09/24 04:00 FiO2 Intake & Output 02/08/24 02/09/24 02/09/24 18:59 06:59 18:59 Intake Total 420 431.167 Output Total 1500 900 Balance -1080 -468.833 Weight 70.4 kg 73.3 kg Intake: Intake, IV Titration 71.167 Amount Furosemide 100 mg In 71.167 Sodium Chloride 0.9% 90 ml @ 5 MG/HR 5 mls/hr IV .[facility] Rx#:[id number] Oral 420 360 Output: Urine 1400 900 Uretheral ([place]) 700 Post Void Residual 100 Other: Voiding Method Indwelling Catheter Bedside Commode Indwelling Catheter - Exam General appearance: The patient is alert, oriented, appears ill, appears in no acute distress. HET: Head is normocephalic and atraumatic. Conjunctiva pink. Sclera anicteric. Neck: Supple without lymphadenopathy. Abdomen: Soft, nontender, nondistended with bowel sounds. No guarding or rigidity. Extremities: Normal skin color and turgor. No pedal edema Skin: No rashes, no jaundice Neurological: No focal deficits. Alert and oriented. - Labs CBC & Chem 7: 02/09/24 09:22 02/09/24 09:22 Labs: Abnormal Lab Results - Last 24 Hours (Table) 02/08/24 02/08/24 02/08/24 Range/Units 07:39 07:39 07:39 RBC 2.28 L (3.80-5.40) m/uL Hgb 7.1 L (11.4-16.0) gm/dL Hct 22.0 L (34.0-46.0) % Sodium (137-145) mmol/L Carbon Dioxide (22-30) mmol/L BUN (7-17) mg/dL Creatinine (0.52-1.04) mg/dL Glucose (74-99) mg/dL POC Glucose (mg/dL) (70-110) mg/dL Hemoglobin A1c 7.1 H (<=6.0) % Calcium (8.4-10.2) mg/dL Total Protein (PEP) (6.2-8.2) g/dL Procalcitonin 0.92 H (0.02-0.09) ng/mL Complement C4 (10.0-53.0) mg/dL Tot Complement (CH50) (42 - 95) U/mL 02/08/24 02/08/24 02/08/24 Range/Units 07:39 09:05 10:51 RBC (3.80-5.40) m/uL Hgb (11.4-16.0) gm/dL Hct (34.0-46.0) % Sodium 130 L (137-145) mmol/L Carbon Dioxide 17 L (22-30) mmol/L BUN 63 H (7-17) mg/dL Creatinine 3.34 H (0.52-1.04) mg/dL Glucose 229 H (74-99) mg/dL POC Glucose (mg/dL) 203 H (70-110) mg/dL Hemoglobin A1c (<=6.0) % Calcium 7.9 L (8.4-10.2) mg/dL Total Protein (PEP) (6.2-8.2) g/dL Procalcitonin (0.02-0.09) ng/mL Complement C4 58.8 H (10.0-53.0) mg/dL Tot Complement (CH50) (42 - 95) U/mL 02/08/24 02/08/24 02/08/24 Range/Units 10:51 10:51 11:30 RBC (3.80-5.40) m/uL Hgb (11.4-16.0) gm/dL Hct (34.0-46.0) % Sodium (137-145) mmol/L Carbon Dioxide (22-30) mmol/L BUN (7-17) mg/dL Creatinine (0.52-1.04) mg/dL Glucose (74-99) mg/dL POC Glucose (mg/dL) 366 H (70-110) mg/dL Hemoglobin A1c (<=6.0) % Calcium (8.4-10.2) mg/dL Total Protein (PEP) 5.0 L (6.2-8.2) g/dL Procalcitonin (0.02-0.09) ng/mL Complement C4 (10.0-53.0) mg/dL Tot Complement (CH50) >97 H (42 - 95) U/mL 02/08/24 02/08/24 02/09/24 Range/Units 16:36 20:08 06:01 RBC (3.80-5.40) m/uL Hgb (11.4-16.0) gm/dL Hct (34.0-46.0) % Sodium (137-145) mmol/L Carbon Dioxide (22-30) mmol/L BUN (7-17) mg/dL Creatinine (0.52-1.04) mg/dL Glucose (74-99) mg/dL POC Glucose (mg/dL) 119 H 157 H 404 H (70-110) mg/dL Hemoglobin A1c (<=6.0) % Calcium (8.4-10.2) mg/dL Total Protein (PEP) (6.2-8.2) g/dL Procalcitonin (0.02-0.09) ng/mL Complement C4 (10.0-53.0) mg/dL Tot Complement (CH50) (42 - 95) U/mL Microbiology - Last 24 Hours (Table) 02/07/24 11:05 Urine Culture - Final Urine,Voided 02/07/24 10:01 Blood Culture - Preliminary Blood Assessment and Plan (1) Normocytic normochromic anemia Narrative/Plan: 58-year-old female presenting to the emergency department with shortness of breath and lower extremity swelling evaluated for NSTEMI by cardiology and was initially started on a heparin drip however has been discontinued due to her anemia. Patient was noted to be anemic with a hemoglobin of 7.7 with a normocytic normochromic anemia. It is unclear if patient has chronic anemia h owever last blood count in our system from 2021 had a hemoglobin of 12.0 however trending she has had some anemia in the past. She has had upper endoscopy and lower endoscopy about 10 years ago. Patient denies any blood in her stool or black stool, no nausea or vomiting or hematemesis. No elevation in her BUN, patient does have multiple comorbidities including possible heart failure, COPD, diabetes mellitus, and kidney disease. Will order iron studies. Likely this is anemia of chronic disease. Further recommendations forthcoming. Iron studies reviewed, although iron was low ferritin was normal at 111. Parenteral iron ordered per nephrology. Patient continues to have no signs of GI bleed. She is having increased shortness of breath and has been started on Lasix drip and requiring oxygen supplementation. Will defer any endoscopic evaluation to outpatient. Current Visit: Yes Status: Acute Code(s): D64.9 - ANEMIA, UNSPECIFIED SNOMED Code(s): 69864006 (2) Renal failure Current Visit: Yes Status: Acute Code(s): N19 - UNSPECIFIED KIDNEY FAILURE SNOMED Code(s): 49564488 (3) COPD (chronic obstructive pulmonary disease) Current Visit: Yes Status: Acute Code(s): J44.9 - CHRONIC OBSTRUCTIVE PULMONARY DISEASE, UNSPECIFIED SNOMED Code(s): 68190465 (4) Shortness of breath Current Visit: Yes Status: Acute Code(s): R06.02 - SHORTNESS OF BREATH SNOMED Code(s): 600316673 (5) NSTEMI (non-ST elevated myocardial infarction) Current Visit: Yes Status: Acute Code(s): I21.4 - NON-ST ELEVATION (NSTEMI) MYOCARDIAL INFARCTION SNOMED Code(s): 49522558 (6) Diabetes mellitus Current Visit: No Status: Acute Code(s): E11.9 - TYPE 2 DIABETES MELLITUS WITHOUT COMPLICATIONS SNOMED Code(s): 58418645 (7) Elevated LFTs Narrative/Plan: Patient with mildly elevated LFTs. States history of hepatitis as a child. Will obtain hepatitis panel. Current Visit: Yes Status: Acute Code(s): R79.89 - OTHER SPECIFIED ABNORMAL FINDINGS OF BLOOD CHEMISTRY SNOMED Code(s): 459342405 (8) Obesity Current Visit: Yes Status: Acute Code(s): E66.9 - OBESITY, UNSPECIFIED SNOMED Code(s): 576102033 Plan: 1. Continue symptomatic and supportive care 2. May increase to regular diet 3. Iron studies ordered and reviewed 4. Nephrology following for kidney disease continue with their recommendations 6. Parental iron ordered 7. Cardiology following 8. Protonix 40 mg daily for GI prophylaxis 9. No plans on endoscopic evaluation at this time due to poor respiratory and kidney status. Patient without any signs of GI bleed, recommend outpatient upper and lower endoscopy when patient more stable. Thank you for this consultation, we will sign off at this time. There will be no in-house gastroenterology available next week. Dr. Bibiana Sands I agree with the dictator's note, documented as a scribe by Queta Petersen.
--- NOTE | 2024-02-09 14:39 | P.PN ---
Subjective HISTORY OF PRESENT ILLNESS: This is a 58-year-old female with a past medical history significant for former nicotine dependence, hypertension, CVA, hypothyroidism, and diabetes. Patient follows in the office with Dr. Saunders and was last seen in May 2023. We have been asked to see the patient in consultation for non-STEMI and CHF. Patient e xamined at the bedside in the emergency room. Patient is currently incarcerated and there is a fleece tier at the bedside. Patient states she has been feeling short of breath and feeling weak. She states this started about 2 days ago. She states that she was in court and afterwards they had to use a wheelchair to get her back into the vehicle as she was too weak to walk. She also reports feeling dizzy and having pounding in her chest. She reports a slight cough. She denied having a fever previously to her knowledge. However patient was febrile this morning with a temperature of 100.2. She also reports lower extremity edema that started in the middle of December. She reports nausea yesterd ay that was relieved with Zofran. Patient was found to be anemic on admission with a hemoglobin of 7.7. Repeat 7.1. Last hemoglobin was back in 2021 but was normal at 12.3. The patient denies a history of anemia. Unsure if this anemia is new or has been present for a while as her last blood work was not since 2021. She denies any blood in her stool or urine. She does report decreased urine output. Patient was also found to have acute kidney injury with a creatinine of 2.96. Back in 2021, patient's kidney function was within normal limits. Patient was also found to have elevated troponins and was started on IV heparin. She denied having any chest pain or pressure. Patient is a former cigarette smoker and has not smoked in 55 days since being in senior living. She denies alcohol abuse many years ago but nothing recently. She denies drug use including marijuana. DIAGNOSTICS: - EKG reveals sinus mechanism with left bundle branch block. - Chest xray consolation of findings favor CHF over pneumonia. Correlate clinically. Underlying COPD. Loop recorder device seen. Bilateral conso lidation and small effusion with diffuse interstitial pattern.. - Laboratory data: WBC 6.2. Hemoglobin 7.1. Platelet count 300. Sodium 133. Potassium 4.9. BUN 56. Creatinine 2.96. AST 55. ALT 35. proBNP 25,100. Troponin 1.290. 1.760. 2.210. - Current home cardiac medications include Lipitor 20 mg at night. - Most recent echocardiogram obtained in February 2022 revealed ejection fraction 55 to 60%, mild MR, mild TR - Patient underwent dobutamine stress test in March 2023 at the office which was negative for ischemia 02/08/2024 Patient examined this morning at the bedside. Patient states her shortness of breath has improved today. She complains of mild chest discomfort when she feels short of breath. She states the chest pain is worse with deep inspiration. Her lower extremity edema has improved from yesterday. She has been transition to IV Lasix drip per nephrology. Echocardiogram completed revealing ejection fraction 20 to 25%, mild pulm hypertension, moderate to severe mitral regurgitation, mild aortic regurgitation, trace to mild tricuspid regurgitation and small pericardial effusion. PHYSICAL EXAM: VITAL SIGNS: Reviewed. GENERAL: Well-developed in no acute distress. HEENT: Head is normocephalic. Pupils are equal, round. Sclerae anicteric. Mucous membranes of the mouth are moist. Neck supple. No JVD or thyromegaly LUNGS: Respirations even and unlabored. Lungs essentially clear to auscultation bilaterally. HEART: Regular rate and rhythm. S1 and S2 heard. ABDOMEN: Soft. Nondistended. Nontender. EXTREMITIES: Normal range of motion. No clubbing or cyanosis. Peripheral pulses intact. 2+ bilateral lower extremity edema NEUROLOGIC: Awake and alert. Oriented x 3. ASSESSMENT: Febrile illness Shortness of breath Acute heart failure with reduced EF, 20 to 25% New onset cardiomyopathy, ischemic versus nonischemic Non-STEMI Left bundle branch block Acute kidney injury, renal function was fairly normal in 2021 Anemia, acute anemia versus anemia of chronic disease due to renal failure, duration of anemia/EDWINA unknown History of hypertension History of CVA x 2 Diabetes Hypothyroidism Former nicotine dependence Minimally elevated LFTs PLAN: IV heparin discontinued yesterday secondary to significant anemia GI was consulted for evaluation of anemia. No plans for endoscopy at this time. Iron studies have been ordered and are currently pending. Nephrology following. Continue IV Lasix infusion per nephrology Daily weights, accurate intake and output, and monitoring of kidney function Continue additional cardiac medications Add Nitropaste Patient is not a candidate for invasive cardiac workup at this time secondary to anemia and kidney function Further recommendations pending patient course Nurse practitioner note has been reviewed by physician. Signing provider agrees with the documented findings, assessment, and plan of care documented by HAND CROCHETER as a scribe. Objective - Vital Signs Vital signs: Vital Signs Temp 97.3 F L 02/08/24 11:44 Pulse 79 02/08/24 11:44 Resp 20 02/08/24 11:44 BP 115/63 02/08/24 11:44 Pulse Ox 97 02/08/24 11:44 FiO2 Intake & Output 02/07/24 02/08/24 02/08/24 18:59 06:59 18:59 Intake Total 240 10 Output Total 0 650 100 Balance 240 -640 -100 Weight 73.4 kg 70.4 kg Intake: IV 10 Invasive Line 1 10 Oral 240 0 Output: Urine 650 Post Void Residual 0 100 Other: Voiding Method Toilet Bedside Commode Bedside Commode External Catheter # Bowel Movements 0 - Labs CBC & Chem 7: 02/08/24 07:39 02/08/24 07:39 Labs: Abnormal Lab Results - Last 24 Hours (Table) 02/07/24 02/07/24 02/07/24 Range/Units 07:16 10:06 11:05 RBC (3.80-5.40) m/uL Hgb (11.4-16.0) gm/dL Hct (34.0-46.0) % Sodium (137-145) mmol/L Carbon Dioxide (22-30) mmol/L BUN (7-17) mg/dL Creatinine (0.52-1.04) mg/dL Glucose (74-99) mg/dL POC Glucose (mg/dL) (70-110) mg/dL Hemoglobin A1c (<=6.0) % Calcium (8.4-10.2) mg/dL Iron 16 L (50-170) UG/DL TIBC 171 L (228-460) UG/DL % Saturation 9.36 L (12.00-45.00) Transferrin 122.0 L (204.0-354.0) mg/dL HDL Cholesterol 61.90 H (40.00-60.00) mg/dL Procalcitonin (0.02-0.09) ng/mL Urine Appearance Cloudy H (Clear) Urine Protein 3+ H (Negative) Urine Glucose (UA) 1+ H (Negative) Urine Blood Trace H (Negative) Ur Leukocyte Esterase Moderate H (Negative) Urine WBC 15 H (0-5) /hpf Ur Squamous Epith Cells 7 H (0-4) /hpf Urine Mucus Rare H (None) /hpf 02/07/24 02/07/24 02/07/24 Range/Units 16:24 20:48 23:49 RBC (3.80-5.40) m/uL Hgb (11.4-16.0) gm/dL Hct (34.0-46.0) % Sodium (137-145) mmol/L Carbon Dioxide (22-30) mmol/L BUN (7-17) mg/dL Creatinine (0.52-1.04) mg/dL Glucose (74-99) mg/dL POC Glucose (mg/dL) 166 H 397 H 226 H (70-110) mg/dL Hemoglobin A1c (<=6.0) % Calcium (8.4-10.2) mg/dL Iron (50-170) UG/DL TIBC (228-460) UG/DL % Saturation (12.00-45.00) Transferrin (204.0-354.0) mg/dL HDL Cholesterol (40.00-60.00) mg/dL Procalcitonin (0.02-0.09) ng/mL Urine Appearance (Clear) Urine Protein (Negative) Urine Glucose (UA) (Negative) Urine Blood (Negative) Ur Leukocyte Esterase (Negative) Urine WBC (0-5) /hpf Ur Squamous Epith Cells (0-4) /hpf Urine Mucus (None) /hpf 02/08/24 02/08/24 02/08/24 Range/Units 05:46 07:39 07:39 RBC (3.80-5.40) m/uL Hgb (11.4-16.0) gm/dL Hct (34.0-46.0) % Sodium (137-145) mmol/L Carbon Dioxide (22-30) mmol/L BUN (7-17) mg/dL Creatinine (0.52-1.04) mg/dL Glucose (74-99) mg/dL POC Glucose (mg/dL) 276 H (70-110) mg/dL Hemoglobin A1c 7.1 H (<=6.0) % Calcium (8.4-10.2) mg/dL Iron (50-170) UG/DL TIBC (228-460) UG/DL % Saturation (12.00-45.00) Transferrin (204.0-354.0) mg/dL HDL Cholesterol (40.00-60.00) mg/dL Procalcitonin 0.92 H (0.02-0.09) ng/mL Urine Appearance (Clear) Urine Protein (Negative) Urine Glucose (UA) (Negative) Urine Blood (Negative) Ur Leukocyte Esterase (Negative) Urine WBC (0-5) /hpf Ur Squamous Epith Cells (0-4) /hpf Urine Mucus (None) /hpf 02/08/24 02/08/24 02/08/24 Range/Units 07:39 07:39 09:05 RBC 2.28 L (3.80-5.40) m/uL Hgb 7.1 L (11.4-16.0) gm/dL Hct 22.0 L (34.0-46.0) % Sodium 130 L (137-145) mmol/L Carbon Dioxide 17 L (22-30) mmol/L BUN 63 H (7-17) mg/dL Creatinine 3.34 H (0.52-1.04) mg/dL Glucose 229 H (74-99) mg/dL POC Glucose (mg/dL) 203 H (70-110) mg/dL Hemoglobin A1c (<=6.0) % Calcium 7.9 L (8.4-10.2) mg/dL Iron (50-170) UG/DL TIBC (228-460) UG/DL % Saturation (12.00-45.00) Transferrin (204.0-354.0) mg/dL HDL Cholesterol (40.00-60.00) mg/dL Procalcitonin (0.02-0.09) ng/mL Urine Appearance (Clear) Urine Protein (Negative) Urine Glucose (UA) (Negative) Urine Blood (Negative) Ur Leukocyte Esterase (Negative) Urine WBC (0-5) /hpf Ur Squamous Epith Cells (0-4) /hpf Urine Mucus (None) /hpf 02/08/24 Range/Units 11:30 RBC (3.80-5.40) m/uL Hgb (11.4-16.0) gm/dL Hct (34.0-46.0) % Sodium (137-145) mmol/L Carbon Dioxide (22-30) mmol/L BUN (7-17) mg/dL Creatinine (0.52-1.04) mg/dL Glucose (74-99) mg/dL POC Glucose (mg/dL) 366 H (70-110) mg/dL Hemoglobin A1c (<=6.0) % Calcium (8.4-10.2) mg/dL Iron (50-170) UG/DL TIBC (228-460) UG/DL % Saturation (12.00-45.00) Transferrin (204.0-354.0) mg/dL HDL Cholesterol (40.00-60.00) mg/dL Procalcitonin (0.02-0.09) ng/mL Urine Appearance (Clear) Urine Protein (Negative) Urine Glucose (UA) (Negative) Urine Blood (Negative) Ur Leukocyte Esterase (Negative) Urine WBC (0-5) /hpf Ur Squamous Epith Cells (0-4) /hpf Urine Mucus (None) /hpf
--- NOTE | 2024-02-09 14:40 | P.PN ---
Subjective HISTORY OF PRESENT ILLNESS: This is a 58-year-old female with a past medical history significant for former nicotine dependence, hypertension, CVA, hypothyroidism, and diabetes. Patient follows in the office with Dr. Saunders and was last seen in May 2023. We have been asked to see the patient in consultation for non-STEMI and CHF. Patient e xamined at the bedside in the emergency room. Patient is currently incarcerated and there is a maintainer central office at the bedside. Patient states she has been feeling short of breath and feeling weak. She states this started about 2 days ago. She states that she was in court and afterwards they had to use a wheelchair to get her back into the vehicle as she was too weak to walk. She also reports feeling dizzy and having pounding in her chest. She reports a slight cough. She denied having a fever previously to her knowledge. However patient was febrile this morning with a temperature of 100.2. She also reports lower extremity edema that started in the middle of December. She reports nausea yesterd ay that was relieved with Zofran. Patient was found to be anemic on admission with a hemoglobin of 7.7. Repeat 7.1. Last hemoglobin was back in 2021 but was normal at 12.3. The patient denies a history of anemia. Unsure if this anemia is new or has been present for a while as her last blood work was not since 2021. She denies any blood in her stool or urine. She does report decreased urine output. Patient was also found to have acute kidney injury with a creatinine of 2.96. Back in 2021, patient's kidney function was within normal limits. Patient was also found to have elevated troponins and was started on IV heparin. She denied having any chest pain or pressure. Patient is a former cigarette smoker and has not smoked in 55 days since being in halfway. She denies alcohol abuse many years ago but nothing recently. She denies drug use including marijuana. DIAGNOSTICS: - EKG reveals sinus mechanism with left bundle branch block. - Chest xray consolation of findings favor CHF over pneumonia. Correlate clinically. Underlying COPD. Loop recorder device seen. Bilateral conso lidation and small effusion with diffuse interstitial pattern.. - Laboratory data: WBC 6.2. Hemoglobin 7.1. Platelet count 300. Sodium 133. Potassium 4.9. BUN 56. Creatinine 2.96. AST 55. ALT 35. proBNP 25,100. Troponin 1.290. 1.760. 2.210. - Current home cardiac medications include Lipitor 20 mg at night. - Most recent echocardiogram obtained in February 2022 revealed ejection fraction 55 to 60%, mild MR, mild TR - Patient underwent dobutamine stress test in March 2023 at the office which was negative for ischemia 02/08/2024 Patient examined this morning at the bedside. Patient states her shortness of breath has improved today. She complains of mild chest discomfort when she feels short of breath. She states the chest pain is worse with deep inspiration. Her lower extremity edema has improved from yesterday. She has been transition to IV Lasix drip per nephrology. Echocardiogram completed revealing ejection fraction 20 to 25%, mild pulm hypertension, moderate to severe mitral regurgitation, mild aortic regurgitation, trace to mild tricuspid regurgitation and small pericardial effusion. 02/09/2024 Patient examined this morning at the bedside. Patient continues to report shortness of breath at the time of examination. She reports that she developed a cough also today. She reports chest discomfort that is worse with deep inspiration. She remains on a Lasix drip at 5 mg an hour. Creatinine 3.41. Hemoglobin 7.4. Blood pressure is stable. Telemetry reveals sinus mechanism. PHYSICAL EXAM: VITAL SIGNS: Reviewed. GENERAL: Well-developed in no acute distress. HEENT: Head is normocephalic. Pupils are equal, round. Sclerae anicteric. Mucous membranes of the mouth are moist. Neck supple. No JVD or thyromegaly LUNGS: Respirations even and unlabored. Lungs essentially clear to auscultation bilaterally. HEART: Regular rate and rhythm. S1 and S2 heard. ABDOMEN: Soft. Nondistended. Nontender. EXTREMITIES: Normal range of motion. No clubbing or cyanosis. Peripheral pulses intact. 2+ bilateral lower extremity edema NEUROLOGIC: Awake and alert. Oriented x 3. ASSESSMENT: Febrile illness Shortness of breath Acute heart failure with reduced EF, 20 to 25% New onset cardiomyopathy, ischemic versus nonischemic Non-STEMI Left bundle branch block Acute kidney injury, renal function was fairly normal in 2021 Anemia, acute anemia versus anemia of chronic disease due to renal failure, duration of anemia/EDWINA unknown History of hypertension History of CVA x 2 Diabetes Hypothyroidism Former nicotine dependence Minimally elevated LFTs PLAN: Continue current cardiac medications Nephrology following. Continue IV Lasix infusion per nephrology Daily weights, accurate intake and output, and monitoring of kidney function Patient is not a candidate for invasive cardiac workup at this time secondary to anemia and kidney function Further recommendations pending patient course Nurse practitioner note has been reviewed by physician. Signing provider agrees with the documented findings, assessment, and plan of care documented by TALENT DEVELOPMENT COORDINATOR as a scribe. Objective - Vital Signs Vital signs: Vital Signs Temp 97.9 F 02/09/24 12:00 Pulse 86 02/09/24 14:00 Resp 20 02/09/24 14:00 BP 119/64 02/09/24 12:00 Pulse Ox 94 L 02/09/24 12:00 FiO2 Intake & Output 02/08/24 02/09/24 02/09/24 18:59 06:59 18:59 Intake Total 420 431.167 Output Total 1500 900 Balance -1080 -468.833 Weight 70.4 kg 73.3 kg Intake: Intake, IV Titration 71.167 Amount Furosemide 100 mg In 71.167 Sodium Chloride 0.9% 90 ml @ 5 MG/HR 5 mls/hr IV .Q20H [facility] Rx#:[id number] Oral 420 360 Output: Urine 1400 900 Uretheral (Saldaña) 700 Post Void Residual 100 Other: Voiding Method Indwelling Catheter Bedside Commode Bedside Commode Indwelling Catheter Indwelling Catheter # Voids 450 # Bowel Movements 1 - Labs CBC & Chem 7: 02/09/24 09:22 02/09/24 09:22 Labs: Abnormal Lab Results - Last 24 Hours (Table) 02/08/24 02/08/24 02/08/24 Range/Units 10:51 10:51 10:51 RBC (3.80-5.40) m/uL Hgb (11.4-16.0) gm/dL Hct (34.0-46.0) % Sodium (137-145) mmol/L Carbon Dioxide (22-30) mmol/L BUN (7-17) mg/dL Creatinine (0.52-1.04) mg/dL Glucose (74-99) mg/dL POC Glucose (mg/dL) (70-110) mg/dL Calcium (8.4-10.2) mg/dL Total Protein (PEP) 5.0 L (6.2-8.2) g/dL Complement C4 58.8 H (10.0-53.0) mg/dL Tot Complement (CH50) >97 H (42 - 95) U/mL 02/08/24 02/08/24 02/09/24 Range/Units 16:36 20:08 06:01 RBC (3.80-5.40) m/uL Hgb (11.4-16.0) gm/dL Hct (34.0-46.0) % Sodium (137-145) mmol/L Carbon Dioxide (22-30) mmol/L BUN (7-17) mg/dL Creatinine (0.52-1.04) mg/dL Glucose (74-99) mg/dL POC Glucose (mg/dL) 119 H 157 H 404 H (70-110) mg/dL Calcium (8.4-10.2) mg/dL Total Protein (PEP) (6.2-8.2) g/dL Complement C4 (10.0-53.0) mg/dL Tot Complement (CH50) (42 - 95) U/mL 02/09/24 02/09/24 02/09/24 Range/Units 09:22 09:22 11:49 RBC 2.44 L (3.80-5.40) m/uL Hgb 7.4 L (11.4-16.0) gm/dL Hct 22.6 L (34.0-46.0) % Sodium 129 L (137-145) mmol/L Carbon Dioxide 16 L (22-30) mmol/L BUN 66 H (7-17) mg/dL Creatinine 3.41 H (0.52-1.04) mg/dL Glucose 196 H (74-99) mg/dL POC Glucose (mg/dL) 135 H (70-110) mg/dL Calcium 8.1 L (8.4-10.2) mg/dL Total Protein (PEP) (6.2-8.2) g/dL Complement C4 (10.0-53.0) mg/dL Tot Complement (CH50) (42 - 95) U/mL Microbiology - Last 24 Hours (Table) 02/07/24 11:05 Urine Culture - Final Urine,Voided 02/07/24 10:01 Blood Culture - Preliminary Blood
--- NOTE | 2024-02-09 14:49 | P.PN ---
Subjective Progress Note Date: 02/09/24 Patient is a 58-year-old white female with past medical history significant for COPD, chronic ongoing tobacco dependence, CVA/TIA, diabetes mellitus, hyperlipidemia, hypertension, hypothyroidism, fibromyalgia, GERD, among other things. Patient presented back on 02/06/2024 from long term with chief complaint of increased lower extremity swelling. She states that she first noted the swelling back in December,. It is progressively worsened, she states she has gained approximately 20 pounds over the last 2 months. Approximately 10 days ago she was awoken at night with substernal chest pain. Nonradiating. With associated shortness of breath and sweating. Lasted up to 15 minutes. She is also had a nonproductive cough. She was noted to be febrile this admission. She is empirically covered on antibiotics. On arrival to the emergency room, she was noted to have elevated troponins of 1.29, 1.76, and 2.2. EKG showed normal sinus rhythm with left bundle branch block, without any other acute is chemic changes. No previous EKG for comparison. She was started on heparin infusion per protocol. She also was on a Nitropaste. Echocardiogram showed a severely impaired left ventricular ejection fraction of 20 to 25%, and moderate to severe mitral regurgitation. Today, she was started on a Lasix infusion at 5 mg/h. Heparin infusion was stopped as the patient is anemic. Patient denies any acute blood loss. No vaginal bleeding. No juan blood in stool. No melena. No nausea or vomiting or hematic emesis. Last colonoscopy was reportedly around 10 years ago. She is currently lying in bed, on 2 L/min nasal cannula. Chest x-ray on admission shows diffuse interstitial edema as well as bilateral consolidation and small effusions. Findings consistent with congestive heart failure. NT proBNP was elevated 25,000. Patient not making much urine despite Lasix infusion. Patient did have 1 episode of fever during her admission with a Tmax of 100.2 F. She was empirically she was empirically placed on Rocephin. Negative for influenza, RSV, COVID. Most recent BMP from today: Sodium 130, potassium 5.1, chloride 104, serum bicarb down to 17, BUN 63, creatinine worsening and 3.34, glucose 229. LFTs mildly elevated. Hepatitis panel nonreactive. Overall, hemodynamically stable. On 02/08/2024, seen the patient for a follow-up. The patient is currently on 3 L of oxygen by nasal cannula with a pulse ox of 94%. She should be able to wean down. She is on Lasix drip at 5 mg an hour and the patient is producing adequate amount of urine output. Her fluid balance is negative. As mentioned, the patient is post non-ST segment ovation myocardial infarction the patient is being seen by cardiology. The patient has severe cardiomyopathy with impaired left ventricular ejection fraction. Her blood work from today shows a BUN of 66 with a creatinine of 3.41 and this is consistent with an acute on chronic kidney injury. Sodium levels at 129, potassium is at 4.4 with a WBC count of 6.3 and a hemoglobin of 7.4. The patient is on IV Rocephin as an empiric antibiotic coverage. She is currently afebrile. The patient is being seen by cardiology. The patient will be kept on IV Lasix. Not a candidate for any invasive cardiac workup due to her acute on top of chronic kidney injury at this point in time. Her comorbidities are multiple. Unsure if she does have underlying coronary artery disease. Nevertheless, she has previous history of CVA, diabetes mellitus type 2, hypothyroidism and CHF. She was in long term for being arrested due to possession of amphetamines. Vasculitis workup was negative including a negative EDSON and a negative P and C ANCA. Hepatitis profile was also negative. Objective - Vital Signs Vital signs: Vital Signs Temp 97.8 F 02/09/24 08:00 Pulse 86 02/09/24 08:00 Resp 22 02/09/24 08:00 BP 122/68 02/09/24 08:00 Pulse Ox 94 L 02/09/24 08:36 FiO2 Intake & Output 02/08/24 02/09/24 02/09/24 18:59 06:59 18:59 Intake Total 420 431.167 Output Total 1500 900 Balance -2344 -266.833 Weight 70.4 kg 73.3 kg Intake: Intake, IV Titration 71.167 Amount Furosemide 100 mg In 71.167 Sodium Chloride 0.9% 90 ml @ 5 MG/HR 5 mls/hr IV .Q20H [id number] Rx#:[id number] Oral 420 360 Output: Urine 1400 900 Uretheral (Saldaña) 700 Post Void Residual 100 Other: Voiding Method Indwelling Catheter Bedside Commode Bedside Commode Indwelling Catheter Indwelling Catheter # Voids 450 - Exam GENERAL EXAM: Alert, 58-year-old white female, appearing older than stated age, comfortable in no apparent distress. HEAD: Normocephalic and atraumatic EYES: Normal reaction of pupils, equal size. NOSE: Clear with pink turbinates. THROAT: No erythema or exudates. NECK: No masses, no JVD. CHEST: No chest wall deformity. LUNGS: Equal air entry with bibasilar inspiratory crackles and mild and expiratory wheezes heard posteriorly and bilaterally. On 2 L/min nasal cannula. SpO2 97%. No conversational dyspnea or accessory muscle use while at rest. CVS: S1 and S2 normal with no audible murmur, regular rhythm. No extra heart sounds ABDOMEN: No hepatosplenomegaly, active bowel sounds, no guarding or rigidity. SPINE: No scoliosis or deformity SKIN: No rashes CENTRAL NERVOUS SYSTEM: No focal deficits, tone is normal in all 4 extremities. EXTREMITIES: There is bilateral lower extremity pitting edema, 1-2+ bilaterally. No clubbing, or cyanosis. Peripheral pulses are intact. - Labs CBC & Chem 7: 02/09/24 09:22 02/09/24 09:22 Labs: Abnormal Lab Results - Last 24 Hours (Table) 02/08/24 02/08/24 02/08/24 Range/Units 10:51 10:51 10:51 RBC (3.80-5.40) m/uL Hgb (11.4-16.0) gm/dL Hct (34.0-46.0) % Sodium (137-145) mmol/L Carbon Dioxide (22-30) mmol/L BUN (7-17) mg/dL Creatinine (0.52-1.04) mg/dL Glucose (74-99) mg/dL POC Glucose (mg/dL) (70-110) mg/dL Calcium (8.4-10.2) mg/dL Total Protein (PEP) 5.0 L (6.2-8.2) g/dL Complement C4 58.8 H (10.0-53.0) mg/dL Tot Complement (CH50) >97 H (42 - 95) U/mL 02/08/24 02/08/24 02/08/24 Range/Units 11:30 16:36 20:08 RBC (3.80-5.40) m/uL Hgb (11.4-16.0) gm/dL Hct (34.0-46.0) % Sodium (137-145) mmol/L Carbon Dioxide (22-30) mmol/L BUN (7-17) mg/dL Creatinine (0.52-1.04) mg/dL Glucose (74-99) mg/dL POC Glucose (mg/dL) 366 H 119 H 157 H (70-110) mg/dL Calcium (8.4-10.2) mg/dL Total Protein (PEP) (6.2-8.2) g/dL Complement C4 (10.0-53.0) mg/dL Tot Complement (CH50) (42 - 95) U/mL 02/09/24 02/09/24 02/09/24 Range/Units 06:01 09:22 09:22 RBC 2.44 L (3.80-5.40) m/uL Hgb 7.4 L (11.4-16.0) gm/dL Hct 22.6 L (34.0-46.0) % Sodium 129 L (137-145) mmol/L Carbon Dioxide 16 L (22-30) mmol/L BUN 66 H (7-17) mg/dL Creatinine 3.41 H (0.52-1.04) mg/dL Glucose 196 H (74-99) mg/dL POC Glucose (mg/dL) 404 H (70-110) mg/dL Calcium 8.1 L (8.4-10.2) mg/dL Total Protein (PEP) (6.2-8.2) g/dL Complement C4 (10.0-53.0) mg/dL Tot Complement (CH50) (42 - 95) U/mL Microbiology - Last 24 Hours (Table) 02/07/24 11:05 Urine Culture - Final Urine,Voided 02/07/24 10:01 Blood Culture - Preliminary Blood Assessment and Plan Assessment: Acute non-ST elevation UT, patient was initially placed on heparin infusion per protocol, which is currently paused. Also has Nitropaste on. Denies any further chest pain. The patient is currently off IV heparin. Not a candidate for further cardiac intervention at this point due to her underlying renal failure. Cardiology on the case. Acute hypoxemic respiratory failure, currently on 2 L/min nasal cannula, secon paul to exacerbation of systolic congestive heart failure and above, Chest x-ray on admission shows diffuse interstitial edema as well as bilateral consolidation and small effusions. Findings consistent with congestive heart failure, however, superimposed community-acquired bibasilar pneumonia is not excluded. Ischemic cardiomyopathy with an estimated left ventricular ejection fraction severely impaired at 20 to 25% as well as moderate to severe mitral valve regurgitation, currently on Lasix infusion at 5 mg/h, responding to diuresis with Lasix drip. Negative fluid balance. Severe mitral valve regurgitation Acute febrile illness, empirically covered on antibiotics, currently afebrile an d hemodynamically stable Normocytic normochromic anemia, no overt signs of bleeding, being evaluated by general surgery. Acute kidney injury, likely cardiorenal, worsening creatinine, stable since yesterday the patient is producing adequate amount of urine output. Metabolic non-anion gap acidosis, secondary to above Chronic obstructive pulmonary disease, stable Diabetes mellitus type 1 History of hyperlipidemia History of hypertension History of CVA/TIA History of hypothyroidism History of fibromyalgia History of GERD Mildly elevated LFTs, hepatitis panel nonreactive Former tobacco smoker as of 55 days ago, before this 1/2 pack/day or approximately 15-year pack history' Plan: Continue to use of oxygen by nasal cannula wean the patient's FiO2 Continue Lasix drip IV heparin has been discontinued Not a candidate for cardiac catheterization at this point in time She did sustain an acute non-ST segment elevation myocardial infarction. Troponins peaked at 2.12. At same time, the patient had an echocardiogram that showed CHF with an ejection fraction of 20 to 25% and moderate to severe mitral regurgitation. EKG showing septal Q waves. The patient also has a component of acute kidney injury related to cardiorenal factors. She is being seen by various consultants. Not a candidate for cardiac catheterization because of her underlying renal dysfunction and the patient is being treated medically. Reviewed the chest x-ray is consistent with CHF with possible small bilateral pleural effusions. The patient is currently on Lasix drip at 5 mg an hour. Will monitor fluid balance. Will monitor renal function.
[2024-02-09 16:45] LABS: Glucose,Whole Blood 316 mg/dL (70-110)
[2024-02-09 19:57] LABS: Glucose,Whole Blood 291 mg/dL (70-110)
[2024-02-09 20:40] LABS: Albumin 1.77 g/dL (3.80-4.90); Gamma Globulin 0.75 g/dL (0.70-1.50)
[2024-02-09] MEDS: SODIUM BICARBONATE TAB 650 MG TAB PO SCH (21:19)
[2024-02-09] MEDS: INSULIN DETEMIR (LEVEMIR) 100 UNIT/ML SYR SQ SCH (21:20)
[2024-02-10 06:11] LABS: Glucose,Whole Blood 227 mg/dL (70-110)
--- NOTE | 2024-02-10 07:07 | XR ---
EXAMINATION TYPE: XR chest 1V portable DATE OF EXAM: 02/10/2024 COMPARISON: 02/08/2024 HISTORY: Shortness of breath, CHF TECHNIQUE: Single frontal view of the chest is obtained. FINDINGS: Diffuse interstitial opacity and bibasilar opacities are unchanged compared to previous. The pattern suggests marked CHF. There is no pneumothorax. The osseous structures and soft tissues unremarkable IMPRESSION: No change in the marked acute cardiopulmonary disease most consistent with CHF.
[2024-02-10 07:09] LABS: Basophils % (A) 1 %; Eosinophils # (A) 0.1 k/uL (0-0.7); Eosinophils % (A) 2 %; HCT 21.3 % (34.0-46.0); HGB 7.2 gm/dL (11.4-16.0); Lymphocytes # (A) 1.2 k/uL (1.0-4.8); Lymphocytes % (A) 19 %; MCH 31.7 pg (25.0-35.0); MCV 93.1 fL (80.0-100.0); Mean Platelet Volume 7.9; Monocytes # (A) 0.4 k/uL (0-1.0); Monocytes % (A) 6 %; Neutrophils # (A) 4.2 k/uL (1.3-7.7); Neutrophils % (A) 69 %; Platelet Count 360 k/uL (150-450); RBC 2.28 m/uL (3.80-5.40); RDW 12.2 % (11.5-15.5); WBC 6.1 k/uL (3.8-10.6)
[2024-02-10 07:17] LABS: African American GFR (CKD) 16 (>60 ml/min/1.73 sqM); Anion Gap 7 mmol/L; Blood Urea Nitrogen 69 mg/dL (7-17); Calcium 7.8 mg/dL (8.4-10.2); Carbon Dioxide 19 mmol/L (22-30); Chloride 103 mmol/L (98-107); Glucose 226 mg/dL (74-99); Magnesium 1.9 mg/dL (1.6-2.3); Non-African American GFR(CKD) 14 (>60 ml/min/1.73 sqM); Potassium 4.8 mmol/L (3.5-5.1); Sodium 129 mmol/L (137-145)
[2024-02-10] MEDS: FAMOTIDINE 20 MG TAB PO SCH (09:12)
--- NOTE | 2024-02-10 10:26 | P.PN ---
Subjective Patient is seen in follow-up for acute kidney injury. Renal function fairly stable. Currently on Lasix drip. Has Saldaña catheter for urinary retention. Nonoliguric. Vital signs are stable. General: No acute distress. HEENT: Head exam is unremarkable. On nasal cannula. LUNGS: No audible rhonchi or wheezes. HEART: Rate and Rhythm are regular. ABDOMEN: Nontender. EXTREMITITES: No edema. Objective - Vital Signs Vital signs: Vital Signs Temp 97.8 F 02/10/24 04:00 Pulse 80 02/10/24 04:00 Resp 18 02/10/24 04:00 BP 115/62 02/10/24 04:00 Pulse Ox 94 L 02/10/24 08:20 FiO2 Intake & Output 02/09/24 02/10/24 02/10/24 18:59 06:59 18:59 Intake Total 440 100 118 Output Total 350 500 Balance 90 -400 118 Weight 74 kg Intake: Intake, IV Titration 100 Amount Furosemide 100 mg In 100 Sodium Chloride 0.9% 90 ml @ 5 MG/HR 5 mls/hr IV .Q20H [facility] Rx#:[id number] Oral 440 118 Output: Urine 350 500 Other: Voiding Method Bedside Commode Bedside Commode Indwelling Catheter Indwelling Catheter # Voids 450 # Bowel Movements 1 - Labs CBC & Chem 7: 02/10/24 06:46 02/10/24 06:46 Labs: Abnormal Lab Results - Last 24 Hours (Table) 02/08/24 02/09/24 02/09/24 Range/Units 10:51 09:22 09:22 RBC 2.44 L (3.80-5.40) m/uL Hgb 7.4 L (11.4-16.0) gm/dL Hct 22.6 L (34.0-46.0) % Sodium 129 L (137-145) mmol/L Carbon Dioxide 16 L (22-30) mmol/L BUN 66 H (7-17) mg/dL Creatinine 3.41 H (0.52-1.04) mg/dL Glucose 196 H (74-99) mg/dL POC Glucose (mg/dL) (70-110) mg/dL Calcium 8.1 L (8.4-10.2) mg/dL Albumin (PEP) 1.77 L (3.80-4.90) g/dL Djdhi-3-Purqrjmzk 0.56 H (0.10-0.40) g/dL Ipzgv-5-Vmtxkttet 1.15 H (0.60-1.00) g/dL Procalcitonin (0.02-0.09) ng/mL 02/09/24 02/09/24 02/09/24 Range/Units 11:49 16:41 19:56 RBC (3.80-5.40) m/uL Hgb (11.4-16.0) gm/dL Hct (34.0-46.0) % Sodium (137-145) mmol/L Carbon Dioxide (22-30) mmol/L BUN (7-17) mg/dL Creatinine (0.52-1.04) mg/dL Glucose (74-99) mg/dL POC Glucose (mg/dL) 135 H 316 H 291 H (70-110) mg/dL Calcium (8.4-10.2) mg/dL Albumin (PEP) (3.80-4.90) g/dL Bznze-7-Uihpdvppg (0.10-0.40) g/dL Ulxoq-2-Uugvtzwkb (0.60-1.00) g/dL Procalcitonin (0.02-0.09) ng/mL 02/10/24 02/10/24 02/10/24 Range/Units 06:10 06:46 06:46 RBC 2.28 L (3.80-5.40) m/uL Hgb 7.2 L (11.4-16.0) gm/dL Hct 21.3 L (34.0-46.0) % Sodium (137-145) mmol/L Carbon Dioxide (22-30) mmol/L BUN (7-17) mg/dL Creatinine (0.52-1.04) mg/dL Glucose (74-99) mg/dL POC Glucose (mg/dL) 227 H (70-110) mg/dL Calcium (8.4-10.2) mg/dL Albumin (PEP) (3.80-4.90) g/dL Umtir-7-Emmltratt (0.10-0.40) g/dL Qtpln-7-Fumicjzkf (0.60-1.00) g/dL Procalcitonin 1.69 H (0.02-0.09) ng/mL 02/10/24 Range/Units 06:46 RBC (3.80-5.40) m/uL Hgb (11.4-16.0) gm/dL Hct (34.0-46.0) % Sodium 129 L (137-145) mmol/L Carbon Dioxide 19 L (22-30) mmol/L BUN 69 H (7-17) mg/dL Creatinine 3.44 H (0.52-1.04) mg/dL Glucose 226 H (74-99) mg/dL POC Glucose (mg/dL) (70-110) mg/dL Calcium 7.8 L (8.4-10.2) mg/dL Albumin (PEP) (3.80-4.90) g/dL Irjbo-5-Gcqtyraxu (0.10-0.40) g/dL Grkhq-5-Nodygsfyw (0.60-1.00) g/dL Procalcitonin (0.02-0.09) ng/mL Microbiology - Last 24 Hours (Table) 02/07/24 10:01 Blood Culture - Preliminary Blood Assessment and Plan Plan: Assessment: 1. Acute kidney injury secondary to ATN. Creatinine stable at 3.44 today. Cr eatinine as low as 0.98 dated March 01, 2022. No hydronephrosis noted on kidney ultrasound. Serologies negative. 2. Acute on chronic systolic CHF with ejection fraction of 20 to 25% with moderate to severe mitral regurgitation and mild pulmonary hypertension. 3. Volume overload. Improving with diuresis. 4. Anemia. Iron deficiency noted. GI following. 5. Metabolic acidosis secondary to acute kidney injury. On oral bicarb. Better. 6. Hypervolemic hyponatremia. Also component of hypertonicity from hyperglycemia. Stable. 7. Urinary retention status post Saldaña catheter placement. On Flomax. Plan: Maintain Lasix drip. Increase dose to 10 cc an hour. Chest x-ray still suggestive of fluid overload. Strict I's and O's. Follow-up serologies. Negative so far. Maintain 1200 cc fluid restriction. Blood glucose control. Continue to monitor renal function and urine output.
[2024-02-10 11:45] LABS: Glucose,Whole Blood 314 mg/dL (70-110)
--- NOTE | 2024-02-10 12:09 | P.PN ---
Subjective HISTORY OF PRESENT ILLNESS: This is a 58-year-old female with a past medical history significant for former nicotine dependence, hypertension, CVA, hypothyroidism, and diabetes. Patient follows in the office with Dr. Saunders and was last seen in May 2023. We have been asked to see the patient in consultation for non-STEMI and CHF. Patient e xamined at the bedside in the emergency room. Patient is currently incarcerated and there is a deputy sheriff building guard at the bedside. Patient states she has been feeling short of breath and feeling weak. She states this started about 2 days ago. She states that she was in court and afterwards they had to use a wheelchair to get her back into the vehicle as she was too weak to walk. She also reports feeling dizzy and having pounding in her chest. She reports a slight cough. She denied having a fever previously to her knowledge. However patient was febrile this morning with a temperature of 100.2. She also reports lower extremity edema that started in the middle of December. She reports nausea yesterd ay that was relieved with Zofran. Patient was found to be anemic on admission with a hemoglobin of 7.7. Repeat 7.1. Last hemoglobin was back in 2021 but was normal at 12.3. The patient denies a history of anemia. Unsure if this anemia is new or has been present for a while as her last blood work was not since 2021. She denies any blood in her stool or urine. She does report decreased urine output. Patient was also found to have acute kidney injury with a creatinine of 2.96. Back in 2021, patient's kidney function was within normal limits. Patient was also found to have elevated troponins and was started on IV heparin. She denied having any chest pain or pressure. Patient is a former cigarette smoker and has not smoked in 55 days since being in [facility]. She denies alcohol abuse many years ago but nothing recently. She denies drug use including marijuana. DIAGNOSTICS: - EKG reveals sinus mechanism with left bundle branch block. - Chest xray consolation of findings favor CHF over pneumonia. Correlate clinically. Underlying COPD. Loop recorder device seen. Bilateral conso lidation and small effusion with diffuse interstitial pattern.. - Laboratory data: WBC 6.2. Hemoglobin 7.1. Platelet count 300. Sodium 133. Potassium 4.9. BUN 56. Creatinine 2.96. AST 55. ALT 35. proBNP 25,100. Troponin 1.290. 1.760. 2.210. - Current home cardiac medications include Lipitor 20 mg at night. - Most recent echocardiogram obtained in February 2022 revealed ejection fraction 55 to 60%, mild MR, mild TR - Patient underwent dobutamine stress test in March 2023 at the office which was negative for ischemia 02/08/2024 Patient examined this morning at the bedside. Patient states her shortness of breath has improved today. She complains of mild chest discomfort when she feels short of breath. She states the chest pain is worse with deep inspiration. Her lower extremity edema has improved from yesterday. She has been transition to IV Lasix drip per nephrology. Echocardiogram completed revealing ejection fraction 20 to 25%, mild pulm hypertension, moderate to severe mitral regurgitation, mild aortic regurgitation, trace to mild tricuspid regurgitation and small pericardial effusion. 02/09/2024 Patient examined this morning at the bedside. Patient continues to report shortness of breath at the time of examination. She reports that she developed a cough also today. She reports chest discomfort that is worse with deep inspiration. She remains on a Lasix drip at 5 mg an hour. Creatinine 3.41. Hemoglobin 7.4. Blood pressure is stable. Telemetry reveals sinus mechanism. 02/10/2024 Patient examined this morning at the bedside. Patient continues to report shor tness of breath. She continues to have a cough. She denies any chest discomfort at the time of examination. She remains on a Lasix drip at 5 mg an hour. Creatinine today is 3.44. Hemoglobin 7.2. PHYSICAL EXAM: VITAL SIGNS: Reviewed. GENERAL: Well-developed in no acute distress. HEENT: Head is normocephalic. Pupils are equal, round. Sclerae anicteric. Mucous membranes of the mouth are moist. Neck supple. No JVD or thyromegaly LUNGS: Respirations even and unlabored. Lungs essentially clear to auscultation bilaterally. HEART: Regular rate and rhythm. S1 and S2 heard. ABDOMEN: Soft. Nondistended. Nontender. EXTREMITIES: Normal range of motion. No clubbing or cyanosis. Peripheral pulse s intact. 2+ bilateral lower extremity edema NEUROLOGIC: Awake and alert. Oriented x 3. ASSESSMENT: Febrile illness Shortness of breath Acute heart failure with reduced EF, 20 to 25% New onset cardiomyopathy, ischemic versus nonischemic Non-STEMI Left bundle branch block Acute kidney injury, renal function was fairly normal in 2021 Anemia, acute anemia versus anemia of chronic disease due to renal failure, duration of anemia/EDWINA unknown History of hypertension History of CVA x 2 Diabetes Hypothyroidism Former nicotine dependence Minimally elevated LFTs PLAN: Continue current cardiac medications Will consider adding hydralazine if patients kidney function is unchanged tomorrow. Patient would eventually benefit from Farxiga when EDWINA resolves. Nephrology following. Continue IV Lasix infusion per nephrology. Drip increased to 10 mg an hour today. Daily weights, accurate intake and output, and monitoring of kidney function Patient is not a candidate for invasive cardiac workup at this time secondary to anemia and kidney function Further recommendations pending patient course Nurse practitioner note has been reviewed by physician. Signing provider agrees with the documented findings, assessment, and plan of care documented by MEDICAL HISTORIAN as a scribe. Objective - Vital Signs Vital signs: Vital Signs Temp 97.9 F 02/10/24 09:05 Pulse 87 02/10/24 09:05 Resp 16 02/10/24 09:05 BP 122/64 02/10/24 09:05 Pulse Ox 95 02/10/24 09:05 FiO2 Intake & Output 02/09/24 02/10/24 02/10/24 18:59 06:59 18:59 Intake Total 440 100 118 Output Total 350 500 Balance 90 -400 118 Weight 74 kg Intake: Intake, IV Titration 100 Amount Furosemide 100 mg In 100 Sodium Chloride 0.9% 90 ml @ 5 MG/HR 5 mls/hr IV .Q20H LYNDSAY Rx#:[id number] Oral 440 118 Output: Urine 350 500 Other: Voiding Method Bedside Commode Bedside Commode Bedside Commode Indwelling Catheter Indwelling Catheter Indwelling Catheter # Voids 450 # Bowel Movements 1 - Labs CBC & Chem 7: 02/10/24 06:46 02/10/24 06:46 Labs: Abnormal Lab Results - Last 24 Hours (Table) 02/08/24 02/09/24 02/09/24 Range/Units 10:51 16:41 19:56 RBC (3.80-5.40) m/uL Hgb (11.4-16.0) gm/dL Hct (34.0-46.0) % Sodium (137-145) mmol/L Carbon Dioxide (22-30) mmol/L BUN (7-17) mg/dL Creatinine (0.52-1.04) mg/dL Glucose (74-99) mg/dL POC Glucose (mg/dL) 316 H 291 H (70-110) mg/dL Calcium (8.4-10.2) mg/dL Albumin (PEP) 1.77 L (3.80-4.90) g/dL Swbdl-7-Koqrpxkjn 0.56 H (0.10-0.40) g/dL Vrmas-5-Orheqfvoa 1.15 H (0.60-1.00) g/dL Procalcitonin (0.02-0.09) ng/mL 02/10/24 02/10/24 02/10/24 Range/Units 06:10 06:46 06:46 RBC 2.28 L (3.80-5.40) m/uL Hgb 7.2 L (11.4-16.0) gm/dL Hct 21.3 L (34.0-46.0) % Sodium (137-145) mmol/L Carbon Dioxide (22-30) mmol/L BUN (7-17) mg/dL Creatinine (0.52-1.04) mg/dL Glucose (74-99) mg/dL POC Glucose (mg/dL) 227 H (70-110) mg/dL Calcium (8.4-10.2) mg/dL Albumin (PEP) (3.80-4.90) g/dL Hqisj-8-Jqirktvej (0.10-0.40) g/dL Qzudu-8-Mjdgybbog (0.60-1.00) g/dL Procalcitonin 1.69 H (0.02-0.09) ng/mL 02/10/24 02/10/24 Range/Units 06:46 11:43 RBC (3.80-5.40) m/uL Hgb (11.4-16.0) gm/dL Hct (34.0-46.0) % Sodium 129 L (137-145) mmol/L Carbon Dioxide 19 L (22-30) mmol/L BUN 69 H (7-17) mg/dL Creatinine 3.44 H (0.52-1.04) mg/dL Glucose 226 H (74-99) mg/dL POC Glucose (mg/dL) 314 H (70-110) mg/dL Calcium 7.8 L (8.4-10.2) mg/dL Albumin (PEP) (3.80-4.90) g/dL Uwkfx-8-Ymwkdnxpx (0.10-0.40) g/dL Ioezw-0-Nbkcghfth (0.60-1.00) g/dL Procalcitonin (0.02-0.09) ng/mL Microbiology - Last 24 Hours (Table) 02/07/24 10:01 Blood Culture - Preliminary Blood
--- NOTE | 2024-02-10 13:38 | P.PN ---
Subjective Progress Note Date: 02/10/24 * 58 years old female with past medical history of multiple medical problems as below She has been incarcerated for 52 days, there is officer at bedside. * Patient presents because of shortness of breath and exertional dyspnea has for the last 2 days, she states she hears herself wheezing when she lies down. Currently she is breathing quietly. * She is complaining for mild chest pain on the left side, nonradiating nonspecific, feels much better now and very mild. * She follow-up with her student life advisor Dr. Donal Herrera and mortgage loan processor Dr. Babb who examined her about 2 months ago where she has some mild ulcer In the bottom of her right total * This morning patient has low-grade fever 100.2 * She is also mildly tachypneic around 22 * She is saturating 93% on 2 L oxygen via nasal cannula * Labs reviewed showing hemoglobin of 7.7, rest of CBC is unremarkable * BMP liver enzymes not elevated. INR 0.9. * Lactic 0.9 * proBNP is elevated 25 100 * EKG showing sinus rhythm at [address]-T changes, no left bundle branch block 02/08/2024 Patient lying in bed, relaxed however she has mild tachypnea, mild distress She has significant coughing but she denies chest pain. Normal palpitation but patient has bilateral leg swelling No abdominal pain, no suprapubic pain or tenderness. But she has increased frequency of urination, last night she peed 4 times which is unusual for her. Urine analysis suspicious for infection and patient had low-grade temperature of 100.2 and she was started on Rocephin pending urine culture. Bladder scan was checked it was -101-150. She has about 900-1000 mL of urine output overnight.. Glucose improved after we stopped her Levemir 8 units twice daily, recommend to start it as 5 units daily. Continue with sliding scale. Also because of her tachypnea we will going to repeat chest x-ray. Renal function has worsened to 3.3 in the close were consulted. No evidence of hypotension. No NSAIDs Hemoglobin stable at 7.1, no need for endoscopy by a GI team. Workup so far showing anemia of chronic disease, B12 and folate is pending. Patient continued on heparin drip for her non-STEMI. We are going to check occult blood in the s tool Patient currently on IV Lasix 40 mg 3 times a day. We lowered to twice a day given worsening renal function. Further recommendation pending further workup like chest x-ray 02/09/2024 Patient still complaining of shortness of breath but improving. Leg swelling is coming down No chest pain. Patient remains on Lasix drip. Heparin drip was discontinued Her creatinine was elevated yesterday, she has evidence of urine retention and Saldaña catheter was placed IV Lasix was switched to Lasix drip 5 mg/h. Repeat 2.2 L yesterday Saldaña catheter in place She is currently also on aspirin. Urine culture is negative she remains on ceftriaxone. Pneumonia also not entirely excluded. Check pro- Calcitonin tomorrow and repeat chest x-ray tomorrow General ultrasound at bedside 02/10/24: Patient seen and evaluated at bedside, blood work reviewed WBC 6.1 hemoglobin 7.2, serum chemistry sodium 129 BUN 69 creatinine 3.44 magnesium 1.9 procalcitonin 1.69, chest x-ray does show diffuse interstitial opacity, patient denies blood in stool GENERAL: The patient is alert and oriented x3, not in any acute distress. Well developed, well nourished. Generally weak and lethargic HEENT: Pupils are round and equally reacting to light. EOMI. No scleral icterus. No conjunctival pallor. Normocephalic, atraumatic. No pharyngeal erythema. No thyromegaly. CARDIOVASCULAR: S1 and S2 present. No murmurs, rubs, or gallops. PULMONARY: Chest is clear to auscultation, no wheezing , no crackles. Tachypnea ABDOMEN: Soft, nontender, nondistended, normoactive bowel sounds. No palpable organomegaly. Saldaña catheter in place MUSCULOSKELETAL: No joint swelling or deformity. EXTREMITIES: No cyanosis, clubbing, 1+ bilateral pitting leg edema. NEUROLOGICAL: Gross neurological examination did not reveal any focal deficits. SKIN: No rashes. no petechiae. Assessment: Acute congestive heart failure with systolic dysfunction ejection fraction of 20-25 per New onset cardiomyopathy Acute hypoxemic respiratory failure multifactorial CHF, multifocal pneumonia Multifocal pneumonia Non-ST elevated ID Acute kidney injury on chronic kidney disease, nonoliguric Acute on chronic anemia of chronic disease Acute urinary tract infection, urine culture showing skin or genital kwesi Chronic kidney disease stage II with acute kidney injury Diabetes mellitus type 2 Plan: * In regards to hypoxemic respiratory failure, CHF exacerbation, continue patient on IV Lasix drip, continue to monitor intake and output continue with fluid restriction * Regards to multifocal pneumonia procalcitonin elevated continue IV Rocephin day 2 * In regards to elevated troponin, continue current management medically, not a candidate for cardiac catheterization secondary to renal failure * In regards to diabetes mellitus Accu-Cheks ACHS continue patient on c orrectional insulin and Levemir * In regards to anemia, continue to monitor H&H transfuse if hemoglobin less than 7 * DVT prophylaxis: heparin * GI Prophylaxis: Pepcid Objective - Vital Signs Vital signs: Vital Signs Temp 97.8 F 02/10/24 04:00 Pulse 80 02/10/24 04:00 Resp 18 02/10/24 04:00 BP 115/62 02/10/24 04:00 Pulse Ox 94 L 02/10/24 08:20 FiO2 Intake & Output 02/09/24 02/10/24 02/10/24 18:59 06:59 18:59 Intake Total 440 100 118 Output Total 350 500 Balance 90 -400 118 Weight 74 kg Intake: Intake, IV Titration 100 Amount Furosemide 100 mg In 100 Sodium Chloride 0.9% 90 ml @ 5 MG/HR 5 mls/hr IV .Q20H LYNDSAY Rx#:[id number] Oral 440 118 Output: Urine 350 500 Other: Voiding Method Bedside Commode Bedside Commode Indwelling Catheter Indwelling Catheter # Voids 450 # Bowel Movements 1 - Labs CBC & Chem 7: 02/10/24 06:46 02/10/24 06:46 Labs: Abnormal Lab Results - Last 24 Hours (Table) 02/08/24 02/09/24 02/09/24 Range/Units 10:51 09:22 09:22 RBC 2.44 L (3.80-5.40) m/uL Hgb 7.4 L (11.4-16.0) gm/dL Hct 22.6 L (34.0-46.0) % Sodium 129 L (137-145) mmol/L Carbon Dioxide 16 L (22-30) mmol/L BUN 66 H (7-17) mg/dL Creatinine 3.41 H (0.52-1.04) mg/dL Glucose 196 H (74-99) mg/dL POC Glucose (mg/dL) (70-110) mg/dL Calcium 8.1 L (8.4-10.2) mg/dL Albumin (PEP) 1.77 L (3.80-4.90) g/dL Kaieg-5-Xqnvjgocm 0.56 H (0.10-0.40) g/dL Eedda-4-Ahuyjvuwp 1.15 H (0.60-1.00) g/dL Procalcitonin (0.02-0.09) ng/mL 02/09/24 02/09/24 02/09/24 Range/Units 11:49 16:41 19:56 RBC (3.80-5.40) m/uL Hgb (11.4-16.0) gm/dL Hct (34.0-46.0) % Sodium (137-145) mmol/L Carbon Dioxide (22-30) mmol/L BUN (7-17) mg/dL Creatinine (0.52-1.04) mg/dL Glucose (74-99) mg/dL POC Glucose (mg/dL) 135 H 316 H 291 H (70-110) mg/dL Calcium (8.4-10.2) mg/dL Albumin (PEP) (3.80-4.90) g/dL Wsrow-2-Bneagfjmt (0.10-0.40) g/dL Tktxf-8-Fhxuknzks (0.60-1.00) g/dL Procalcitonin (0.02-0.09) ng/mL 02/10/24 02/10/24 02/10/24 Range/Units 06:10 06:46 06:46 RBC 2.28 L (3.80-5.40) m/uL Hgb 7.2 L (11.4-16.0) gm/dL Hct 21.3 L (34.0-46.0) % Sodium (137-145) mmol/L Carbon Dioxide (22-30) mmol/L BUN (7-17) mg/dL Creatinine (0.52-1.04) mg/dL Glucose (74-99) mg/dL POC Glucose (mg/dL) 227 H (70-110) mg/dL Calcium (8.4-10.2) mg/dL Albumin (PEP) (3.80-4.90) g/dL Valfn-3-Dzsiqwkyg (0.10-0.40) g/dL Gtzzb-2-Jkkbpmbjx (0.60-1.00) g/dL Procalcitonin 1.69 H (0.02-0.09) ng/mL 02/10/24 Range/Units 06:46 RBC (3.80-5.40) m/uL Hgb (11.4-16.0) gm/dL Hct (34.0-46.0) % Sodium 129 L (137-145) mmol/L Carbon Dioxide 19 L (22-30) mmol/L BUN 69 H (7-17) mg/dL Creatinine 3.44 H (0.52-1.04) mg/dL Glucose 226 H (74-99) mg/dL POC Glucose (mg/dL) (70-110) mg/dL Calcium 7.8 L (8.4-10.2) mg/dL Albumin (PEP) (3.80-4.90) g/dL Slpmz-6-Ptyixgehf (0.10-0.40) g/dL Dohkv-6-Fgrbhdwow (0.60-1.00) g/dL Procalcitonin (0.02-0.09) ng/mL Microbiology - Last 24 Hours (Table) 02/07/24 10:01 Blood Culture - Preliminary Blood
--- NOTE | 2024-02-10 14:10 | P.PN ---
Subjective Progress Note Date: 02/10/24 Patient is a 58-year-old white female with past medical history significant for COPD, chronic ongoing tobacco dependence, CVA/TIA, diabetes mellitus, hyperlipidemia, hypertension, hypothyroidism, fibromyalgia, GERD, among other things. Patient presented back on 02/06/2024 from residential with chief complaint of increased lower extremity swelling. She states that she first noted the swelling back in December,. It is progressively worsened, she states she has gained approximately 20 pounds over the last 2 months. Approximately 10 days ago she was awoken at night with substernal chest pain. Nonradiating. With associated shortness of breath and sweating. Lasted up to 15 minutes. She is also had a nonproductive cough. She was noted to be febrile this admission. She is empirically covered on antibiotics. On arrival to the emergency room, she was noted to have elevated troponins of 1.29, 1.76, and 2.2. EKG showed normal sinus rhythm with left bundle branch block, without any other acute is chemic changes. No previous EKG for comparison. She was started on heparin infusion per protocol. She also was on a Nitropaste. Echocardiogram showed a severely impaired left ventricular ejection fraction of 20 to 25%, and moderate to severe mitral regurgitation. Today, she was started on a Lasix infusion at 5 mg/h. Heparin infusion was stopped as the patient is anemic. Patient denies any acute blood loss. No vaginal bleeding. No juan blood in stool. No melena. No nausea or vomiting or hematic emesis. Last colonoscopy was reportedly around 10 years ago. She is currently lying in bed, on 2 L/min nasal cannula. Chest x-ray on admission shows diffuse interstitial edema as well as bilateral consolidation and small effusions. Findings consistent with congestive heart failure. NT proBNP was elevated 25,000. Patient not making much urine despite Lasix infusion. Patient did have 1 episode of fever during her admission with a Tmax of 100.2 F. She was empirically she was empirically placed on Rocephin. Negative for influenza, RSV, COVID. Most recent BMP from today: Sodium 130, potassium 5.1, chloride 104, serum bicarb down to 17, BUN 63, creatinine worsening and 3.34, glucose 229. LFTs mildly elevated. Hepatitis panel nonreactive. Overall, hemodynamically stable. On 02/08/2024, seen the patient for a follow-up. The patient is currently on 3 L of oxygen by nasal cannula with a pulse ox of 94%. She should be able to wean down. She is on Lasix drip at 5 mg an hour and the patient is producing adequate amount of urine output. Her fluid balance is negative. As mentioned, the patient is post non-ST segment ovation myocardial infarction the patient is being seen by cardiology. The patient has severe cardiomyopathy with impaired left ventricular ejection fraction. Her blood work from today shows a BUN of 66 with a creatinine of 3.41 and this is consistent with an acute on chronic kidney injury. Sodium levels at 129, potassium is at 4.4 with a WBC count of 6.3 and a hemoglobin of 7.4. The patient is on IV Rocephin as an empiric antibiotic coverage. She is currently afebrile. The patient is being seen by cardiology. The patient will be kept on IV Lasix. Not a candidate for any invasive cardiac workup due to her acute on top of chronic kidney injury at this point in time. Her comorbidities are multiple. Unsure if she does have underlying coronary artery disease. Nevertheless, she has previous history of CVA, diabetes mellitus type 2, hypothyroidism and CHF. She was in residential for being arrested due to possession of amphetamines. Vasculitis workup was negative including a negative EDSON and a negative P and C ANCA. Hepatitis profile was also negative. On 02/10/2024, the patient is being seen for a follow-up. No new complaints. No significant shortness of breath at rest. Remains on Lasix drip. Producing adequate amount of urine output. Blood work from today was noticed that the patient has a white cell count of 6 with a hemoglobin of 7.2 and a PET scan at 360. BUN 69 with a creatinine of 3.4 and a sodium levels at 129. The patient is being seen by cardiology and nephrology addition. She remains on Lasix drip which will be increased up to 10 mg an hour. Not a candidate for further cardiac catheterization based on underlying renal dysfunction. Objective - Vital Signs Vital signs: Vital Signs Temp 97.9 F 02/10/24 09:05 Pulse 87 02/10/24 09:05 Resp 16 02/10/24 09:05 BP 122/64 02/10/24 09:05 Pulse Ox 95 02/10/24 09:05 FiO2 Intake & Output 02/09/24 02/10/24 02/10/24 18:59 06:59 18:59 Intake Total 440 100 118 Output Total 350 500 Balance 90 -400 118 Weight 74 kg Intake: Intake, IV Titration 100 Amount Furosemide 100 mg In 100 Sodium Chloride 0.9% 90 ml @ 5 MG/HR 5 mls/hr IV .Q20H [facility] Rx#:[id number] Oral 440 118 Output: Urine 350 500 Other: Voiding Method Bedside Commode Bedside Commode Bedside Commode Indwelling Catheter Indwelling Catheter Indwelling Catheter # Voids 450 # Bowel Movements 1 - Exam GENERAL EXAM: Alert, 58-year-old white female, appearing older than stated age, comfortable in no apparent distress. HEAD: Normocephalic and atraumatic EYES: Normal reaction of pupils, equal size. NOSE: Clear with pink turbinates. THROAT: No erythema or exudates. NECK: No masses, no JVD. CHEST: No chest wall deformity. LUNGS: Equal air entry with bibasilar inspiratory crackles and mild and expiratory wheezes heard posteriorly and bilaterally. On 2 L/min nasal cannula. SpO2 97%. No conversational dyspnea or accessory muscle use while at rest. CVS: S1 and S2 normal with no audible murmur, regular rhythm. No extra heart sounds ABDOMEN: No hepatosplenomegaly, active bowel sounds, no guarding or rigidity. SPINE: No scoliosis or deformity SKIN: No rashes CENTRAL NERVOUS SYSTEM: No focal deficits, tone is normal in all 4 extremities. EXTREMITIES: There is bilateral lower extremity pitting edema, 1-2+ bilaterally. No clubbing, or cyanosis. Peripheral pulses are intact. - Labs CBC & Chem 7: 02/10/24 06:46 02/10/24 06:46 Labs: Abnormal Lab Results - Last 24 Hours (Table) 02/08/24 02/09/24 02/09/24 Range/Units 10:51 11:49 16:41 RBC (3.80-5.40) m/uL Hgb (11.4-16.0) gm/dL Hct (34.0-46.0) % Sodium (137-145) mmol/L Carbon Dioxide (22-30) mmol/L BUN (7-17) mg/dL Creatinine (0.52-1.04) mg/dL Glucose (74-99) mg/dL POC Glucose (mg/dL) 135 H 316 H (70-110) mg/dL Calcium (8.4-10.2) mg/dL Albumin (PEP) 1.77 L (3.80-4.90) g/dL Tdgdc-1-Yzlfprfkd 0.56 H (0.10-0.40) g/dL Wwqjj-6-Nbhlbnqtu 1.15 H (0.60-1.00) g/dL Procalcitonin (0.02-0.09) ng/mL 02/09/24 02/10/24 02/10/24 Range/Units 19:56 06:10 06:46 RBC (3.80-5.40) m/uL Hgb (11.4-16.0) gm/dL Hct (34.0-46.0) % Sodium (137-145) mmol/L Carbon Dioxide (22-30) mmol/L BUN (7-17) mg/dL Creatinine (0.52-1.04) mg/dL Glucose (74-99) mg/dL POC Glucose (mg/dL) 291 H 227 H (70-110) mg/dL Calcium (8.4-10.2) mg/dL Albumin (PEP) (3.80-4.90) g/dL Tanku-1-Ndfohdfpu (0.10-0.40) g/dL Qlgzb-7-Gsezvkjmi (0.60-1.00) g/dL Procalcitonin 1.69 H (0.02-0.09) ng/mL 02/10/24 02/10/24 Range/Units 06:46 06:46 RBC 2.28 L (3.80-5.40) m/uL Hgb 7.2 L (11.4-16.0) gm/dL Hct 21.3 L (34.0-46.0) % Sodium 129 L (137-145) mmol/L Carbon Dioxide 19 L (22-30) mmol/L BUN 69 H (7-17) mg/dL Creatinine 3.44 H (0.52-1.04) mg/dL Glucose 226 H (74-99) mg/dL POC Glucose (mg/dL) (70-110) mg/dL Calcium 7.8 L (8.4-10.2) mg/dL Albumin (PEP) (3.80-4.90) g/dL Xtqeo-4-Gyqzbnlnc (0.10-0.40) g/dL Oythl-2-Mbyenbosw (0.60-1.00) g/dL Procalcitonin (0.02-0.09) ng/mL Microbiology - Last 24 Hours (Table) 02/07/24 10:01 Blood Culture - Preliminary Blood Assessment and Plan Assessment: Acute non-ST elevation ID, patient was initially placed on heparin infusion per protocol, which is currently paused. Also has Nitropaste on. Denies any further chest pain. The patient is currently off IV heparin. Not a candidate for further cardiac intervention at this point due to her underlying renal failure. Cardiology on the case. She is free of any chest pain at this point in time Acute hypoxemic respiratory failure, currently on 2 L/min nasal cannula, secondary to exacerbation of systolic congestive heart failure and above, Chest x-ray on admission shows diffuse interstitial edema as well as bilateral consolidation and small effusions. Findings consistent with congestive heart failure, however, superimposed community-acquired bibasilar pneumonia is not excluded. Ischemic cardiomyopathy with an estimated left ventricular ejection fraction severely impaired at 20 to 25% as well as moderate to severe mitral valve regurgitation, currently on Lasix infusion at 5 mg/h, responding to diuresis wi th Lasix drip. Negative fluid balance. Severe mitral valve regurgitation Acute febrile illness, empirically covered on antibiotics, currently afebrile and hemodynamically stable Normocytic normochromic anemia, no overt signs of bleeding, being evaluated by general surgery. Acute kidney injury, likely cardiorenal, worsening creatinine, stable since yesterday the patient is producing adequate amount of urine output. Metabolic non-anion gap acidosis, secondary to above Chronic obstructive pulmonary disease, stable Diabetes mellitus type 1 History of hyperlipidemia History of hypertension History of CVA/TIA History of hypothyroidism History of fibromyalgia History of GERD Mildly elevated LFTs, hepatitis panel nonreactive Former tobacco smoker as of 55 days ago, before this 1/2 pack/day or approximately 15-year pack history' Plan: Continue to use of oxygen by nasal cannula wean the patient's FiO2, currently on 2 L Continue Lasix drip, this will be increased to 10 mg an hour IV heparin has been discontinued Not a candidate for cardiac catheterization at this point in time She did sustain an acute non-ST segment elevation myocardial infarction. Troponins peaked at 2.12. At same time, the patient had an echocardiogram that showed CHF with an ejection fraction of 20 to 25% and moderate to severe mitral regurgitation. EKG showing septal Q waves. The patient also has a component of acute kidney injury related to cardiorenal factors. She is being seen by various consultants. Not a candidate for cardiac catheterization because of her underlying renal dysfunction and the patient is being treated medically. Reviewed the chest x-ray is consistent with CHF with possible small bilateral pleural effusions. Monitor electrolytes Will monitor fluid balance. Will monitor renal function.
[2024-02-10 16:45] LABS: Glucose,Whole Blood 320 mg/dL (70-110)
[2024-02-10 20:21] LABS: Glucose,Whole Blood 266 mg/dL (70-110)
[2024-02-10] MEDS: traZODone HCL 50 MG TAB PO SCH (21:06)
[2024-02-11 06:07] LABS: Glucose,Whole Blood 262 mg/dL (70-110)
[2024-02-11 06:44] LABS: African American GFR (CKD) 15 (>60 ml/min/1.73 sqM); Anion Gap 6 mmol/L; Blood Urea Nitrogen 71 mg/dL (7-17); Calcium 7.5 mg/dL (8.4-10.2); Carbon Dioxide 20 mmol/L (22-30); Chloride 105 mmol/L (98-107); Glucose 200 mg/dL (74-99); Magnesium 1.8 mg/dL (1.6-2.3); Non-African American GFR(CKD) 13 (>60 ml/min/1.73 sqM); Potassium 4.2 mmol/L (3.5-5.1); Sodium 131 mmol/L (137-145)
--- NOTE | 2024-02-11 10:15 | P.PN ---
Subjective Patient is seen in follow-up for acute kidney injury. Renal function little worse from diuresis. Currently on Lasix drip. Has Saldaña catheter for urinary retention. Nonoliguric. Vital signs are stable. General: No acute distress. HEENT: Head exam is unremarkable. On nasal cannula. LUNGS: No audible rhonchi or wheezes. HEART: Rate and Rhythm are regular. ABDOMEN: Nontender. EXTREMITITES: No edema. Objective - Vital Signs Vital signs: Vital Signs Temp 97.8 F 02/11/24 04:00 Pulse 97 02/11/24 08:30 Resp 16 02/11/24 08:30 BP 127/61 02/11/24 08:30 Pulse Ox 93 L 02/11/24 08:30 FiO2 Intake & Output 02/10/24 02/11/24 02/11/24 18:59 06:59 18:59 Intake Total 649.833 59.917 0 Output Total 600 500 Balance 49.833 -440.083 0 Weight 73.9 kg Intake: Intake, IV Titration 55.833 59.917 Amount Furosemide 100 mg In 55.833 59.917 Sodium Chloride 0.9% 90 ml @ 10 MG/HR 10 mls/hr IV .Q10H [facility] Rx#: [id number] Oral 594 0 Output: Urine 600 500 Other: Voiding Method Bedside Commode Bedside Commode Bedside Commode Indwelling Catheter Indwelling Catheter Indwelling Catheter - Labs CBC & Chem 7: 02/10/24 06:46 02/11/24 05:35 Labs: Abnormal Lab Results - Last 24 Hours (Table) 02/10/24 02/10/24 02/10/24 Range/Units 11:43 16:43 20:19 Sodium (137-145) mmol/L Carbon Dioxide (22-30) mmol/L BUN (7-17) mg/dL Creatinine (0.52-1.04) mg/dL Glucose (74-99) mg/dL POC Glucose (mg/dL) 314 H 320 H 266 H (70-110) mg/dL Calcium (8.4-10.2) mg/dL 02/11/24 02/11/24 Range/Units 05:35 06:05 Sodium 131 L (137-145) mmol/L Carbon Dioxide 20 L (22-30) mmol/L BUN 71 H (7-17) mg/dL Creatinine 3.71 H (0.52-1.04) mg/dL Glucose 200 H (74-99) mg/dL POC Glucose (mg/dL) 262 H (70-110) mg/dL Calcium 7.5 L (8.4-10.2) mg/dL Microbiology - Last 24 Hours (Table) 02/07/24 10:01 Blood Culture - Preliminary Blood Assessment and Plan Plan: Assessment: 1. Acute kidney injury secondary to ATN secondary to cardiorenal syndrome. Creatinine 3.71 today. Creatinine as low as 0.98 dated March 01, 2022. No hydronephrosis noted on kidney ultrasound. Serologies negative. 2. Acute on chronic systolic CHF with ejection fraction of 20 to 25% with moderate to severe mitral regurgitation and mild pulmonary hypertension. 3. Volume overload. Improving with diuresis. 4. Anemia. Iron deficiency noted. GI following. 5. Metabolic acidosis secondary to acute kidney injury. On oral bicarb. Better. 6. Hypervolemic hyponatremia. Also component of hypertonicity from hyperglycemia. Better. 7. Urinary retention status post Saldaña catheter placement. On Flomax. Plan: Maintain Lasix drip for now. Repeat chest x-ray tomorrow morning. Strict I's and O's. Maintain 1200 cc fluid restriction. Blood glucose control. Continue to monitor renal function and urine output.
[2024-02-11 10:43] LABS: Glucose,Whole Blood 429 mg/dL (70-110)
--- NOTE | 2024-02-11 10:49 | P.PN ---
Subjective HISTORY OF PRESENT ILLNESS: This is a 58-year-old female with a past medical history significant for former nicotine dependence, hypertension, CVA, hypothyroidism, and diabetes. Patient follows in the office with Dr. Saunders and was last seen in May 2023. We have been asked to see the patient in consultation for non-STEMI and CHF. Patient e xamined at the bedside in the emergency room. Patient is currently incarcerated and there is a homicide investigator at the bedside. Patient states she has been feeling short of breath and feeling weak. She states this started about 2 days ago. She states that she was in court and afterwards they had to use a wheelchair to get her back into the vehicle as she was too weak to walk. She also reports feeling dizzy and having pounding in her chest. She reports a slight cough. She denied having a fever previously to her knowledge. However patient was febrile this morning with a temperature of 100.2. She also reports lower extremity edema that started in the middle of December. She reports nausea yesterd ay that was relieved with Zofran. Patient was found to be anemic on admission with a hemoglobin of 7.7. Repeat 7.1. Last hemoglobin was back in 2021 but was normal at 12.3. The patient denies a history of anemia. Unsure if this anemia is new or has been present for a while as her last blood work was not since 2021. She denies any blood in her stool or urine. She does report decreased urine output. Patient was also found to have acute kidney injury with a creatinine of 2.96. Back in 2021, patient's kidney function was within normal limits. Patient was also found to have elevated troponins and was started on IV heparin. She denied having any chest pain or pressure. Patient is a former cigarette smoker and has not smoked in 55 days since being in [facility]. She denies alcohol abuse many years ago but nothing recently. She denies drug use including marijuana. DIAGNOSTICS: - EKG reveals sinus mechanism with left bundle branch block. - Chest xray consolation of findings favor CHF over pneumonia. Correlate clinically. Underlying COPD. Loop recorder device seen. Bilateral conso lidation and small effusion with diffuse interstitial pattern.. - Laboratory data: WBC 6.2. Hemoglobin 7.1. Platelet count 300. Sodium 133. Potassium 4.9. BUN 56. Creatinine 2.96. AST 55. ALT 35. proBNP 25,100. Troponin 1.290. 1.760. 2.210. - Current home cardiac medications include Lipitor 20 mg at night. - Most recent echocardiogram obtained in February 2022 revealed ejection fraction 55 to 60%, mild MR, mild TR - Patient underwent dobutamine stress test in March 2023 at the office which was negative for ischemia 02/08/2024 Patient examined this morning at the bedside. Patient states her shortness of breath has improved today. She complains of mild chest discomfort when she feels short of breath. She states the chest pain is worse with deep inspiration. Her lower extremity edema has improved from yesterday. She has been transition to IV Lasix drip per nephrology. Echocardiogram completed revealing ejection fraction 20 to 25%, mild pulm hypertension, moderate to severe mitral regurgitation, mild aortic regurgitation, trace to mild tricuspid regurgitation and small pericardial effusion. 02/09/2024 Patient examined this morning at the bedside. Patient continues to report shortness of breath at the time of examination. She reports that she developed a cough also today. She reports chest discomfort that is worse with deep inspiration. She remains on a Lasix drip at 5 mg an hour. Creatinine 3.41. Hemoglobin 7.4. Blood pressure is stable. Telemetry reveals sinus mechanism. 02/10/2024 Patient examined this morning at the bedside. Patient continues to report shor tness of breath. She continues to have a cough. She denies any chest discomfort at the time of examination. She remains on a Lasix drip at 5 mg an hour. Creatinine today is 3.44. Hemoglobin 7.2. 02/11/2024 Patient examined this morning at the bedside. Patient reports that she slept well overnight. She currently denies any chest pain or pressure. She reports improvement in her shortness of breath and also with her cough. Renal function worsened today at 3.71. She remains on IV Lasix at 10 mg an hour. PHYSICAL EXAM: VITAL SIGNS: Reviewed. GENERAL: Well-developed in no acute distress. HEENT: Head is normocephalic. Pupils are equal, round. Sclerae anicteric. Mucous membranes of the mouth are moist. Neck supple. No JVD or thyromegaly LUNGS: Respirations even and unlabored. Lungs essentially clear to auscultation bilaterally. HEART: Regular rate and rhythm. S1 and S2 heard. ABDOMEN: Soft. Nondistended. Nontender. EXTREMITIES: Normal range of motion. No clubbing or cyanosis. Peripheral pulses intact. 2+ bilateral lower extremity edema NEUROLOGIC: Awake and alert. Oriented x 3. ASSESSMENT: Febrile illness Shortness of breath Acute heart failure with reduced EF, 20 to 25% New onset cardiomyopathy, ischemic versus nonischemic Non-STEMI Left bundle branch block Acute kidney injury, renal function was fairly normal in 2021 Anemia, acute anemia versus anemia of chronic disease due to renal failure, duration of anemia/EDWINA unknown History of hypertension History of CVA x 2 Diabetes Hypothyroidism Former nicotine dependence Minimally elevated LFTs PLAN: Continue current cardiac medications Nephrology following. Continue IV Lasix infusion per nephrology. Drip increa sed to 10 mg an hour yesterday Daily weights, accurate intake and output, and monitoring of kidney function Patient is not a candidate for invasive cardiac workup at this time secondary to anemia and kidney function Further recommendations pending patient course Nurse practitioner note has been reviewed by physician. Signing provider agrees with the documented findings, assessment, and plan of care documented by [employer] as a scribe. Objective - Vital Signs Vital signs: Vital Signs Temp 97.8 F 02/11/24 04:00 Pulse 97 02/11/24 08:30 Resp 16 02/11/24 08:30 BP 127/61 02/11/24 08:30 Pulse Ox 93 L 02/11/24 08:30 FiO2 Intake & Output 02/10/24 02/11/24 02/11/24 18:59 06:59 18:59 Intake Total 649.833 59.917 0 Output Total 600 500 Balance 49.833 -440.083 0 Weight 73.9 kg Intake: Intake, IV Titration 55.833 59.917 Amount Furosemide 100 mg In 55.833 59.917 Sodium Chloride 0.9% 90 ml @ 10 MG/HR 10 mls/hr IV .Q10H [id number] Rx#: [id number] Oral 594 0 Output: Urine 600 500 Other: Voiding Method Bedside Commode Bedside Commode Bedside Commode Indwelling Catheter Indwelling Catheter Indwelling Catheter - Labs CBC & Chem 7: 02/10/24 06:46 02/11/24 05:35 Labs: Abnormal Lab Results - Last 24 Hours (Table) 05/04/24 05/04/24 05/04/24 Range/Units 11:43 16:43 20:19 Sodium (137-145) mmol/L Carbon Dioxide (22-30) mmol/L BUN (7-17) mg/dL Creatinine (0.52-1.04) mg/dL Glucose (74-99) mg/dL POC Glucose (mg/dL) 314 H 320 H 266 H (70-110) mg/dL Calcium (8.4-10.2) mg/dL 02/11/24 02/11/24 02/11/24 Range/Units 05:35 06:05 10:36 Sodium 131 L (137-145) mmol/L Carbon Dioxide 20 L (22-30) mmol/L BUN 71 H (7-17) mg/dL Creatinine 3.71 H (0.52-1.04) mg/dL Glucose 200 H (74-99) mg/dL POC Glucose (mg/dL) 262 H 429 H (70-110) mg/dL Calcium 7.5 L (8.4-10.2) mg/dL Microbiology - Last 24 Hours (Table) 02/07/24 10:01 Blood Culture - Preliminary Blood
[2024-02-11] MEDS: INSULIN DETEMIR (LEVEMIR) 100 UNIT/ML SYR SQ SCH (11:46)
--- NOTE | 2024-02-11 12:22 | P.PN ---
Subjective Progress Note Date: 02/11/24 Patient is a 58-year-old white female with past medical history significant for COPD, chronic ongoing tobacco dependence, CVA/TIA, diabetes mellitus, hyperlipidemia, hypertension, hypothyroidism, fibromyalgia, GERD, among other things. Patient presented back on 02/06/2024 from [facility] with chief complaint of increased lower extremity swelling. She states that she first noted the swelling back in December,. It is progressively worsened, she states she has gained approximately 20 pounds over the last 2 months. Approximately 10 days ago she was awoken at night with substernal chest pain. Nonradiating. With associated shortness of breath and sweating. Lasted up to 15 minutes. She is also had a nonproductive cough. She was noted to be febrile this admission. She is empirically covered on antibiotics. On arrival to the emergency room, she was noted to have elevated troponins of 1.29, 1.76, and 2.2. EKG showed normal sinus rhythm with left bundle branch block, without any other acute is chemic changes. No previous EKG for comparison. She was started on heparin infusion per protocol. She also was on a Nitropaste. Echocardiogram showed a severely impaired left ventricular ejection fraction of 20 to 25%, and moderate to severe mitral regurgitation. Today, she was started on a Lasix infusion at 5 mg/h. Heparin infusion was stopped as the patient is anemic. Patient denies any acute blood loss. No vaginal bleeding. No juan blood in stool. No melena. No nausea or vomiting or hematic emesis. Last colonoscopy was reportedly around 10 years ago. She is currently lying in bed, on 2 L/min nasal cannula. Chest x-ray on admission shows diffuse interstitial edema as well as bilateral consolidation and small effusions. Findings consistent with congestive heart failure. NT proBNP was elevated 25,000. Patient not making much urine despite Lasix infusion. Patient did have 1 episode of fever during her admission with a Tmax of 100.2 F. She was empirically she was empirically placed on Rocephin. Negative for influenza, RSV, COVID. Most recent BMP from today: Sodium 130, potassium 5.1, chloride 104, serum bicarb down to 17, BUN 63, creatinine worsening and 3.34, glucose 229. LFTs mildly elevated. Hepatitis panel nonreactive. Overall, hemodynamically stable. On 02/08/2024, seen the patient for a follow-up. The patient is currently on 3 L of oxygen by nasal cannula with a pulse ox of 94%. She should be able to wean down. She is on Lasix drip at 5 mg an hour and the patient is producing adequate amount of urine output. Her fluid balance is negative. As mentioned, the patient is post non-ST segment ovation myocardial infarction the patient is being seen by cardiology. The patient has severe cardiomyopathy with impaired left ventricular ejection fraction. Her blood work from today shows a BUN of 66 with a creatinine of 3.41 and this is consistent with an acute on chronic kidney injury. Sodium levels at 129, potassium is at 4.4 with a WBC count of 6.3 and a hemoglobin of 7.4. The patient is on IV Rocephin as an empiric antibiotic coverage. She is currently afebrile. The patient is being seen by cardiology. The patient will be kept on IV Lasix. Not a candidate for any invasive cardiac workup due to her acute on top of chronic kidney injury at this point in time. Her comorbidities are multiple. Unsure if she does have underlying coronary artery disease. Nevertheless, she has previous history of CVA, diabetes mellitus type 2, hypothyroidism and CHF. She was in [facility] for being arrested due to possession of amphetamines. Vasculitis workup was negative including a negative EDSON and a negative P and C ANCA. Hepatitis profile was also negative. On 02/10/2024, the patient is being seen for a follow-up. No new complaints. No significant shortness of breath at rest. Remains on Lasix drip. Producing adequate amount of urine output. Blood work from today was noticed that the patient has a white cell count of 6 with a hemoglobin of 7.2 and a PET scan at 360. BUN 69 with a creatinine of 3.4 and a sodium levels at 129. The patient is being seen by cardiology and nephrology addition. She remains on Lasix drip which will be increased up to 10 mg an hour. Not a candidate for further cardiac catheterization based on underlying renal dysfunction. 02/11/2024, the patient is being seen for a follow-up. No new complaints. Monitor for improvement in her condition. She remains on 2 L of oxygen by nasal cannula. Fluid balance is -90 cc over the past 24 hours. Suboptimal response to diuretics and the patient remains on Lasix at 10 mg an hour. BUN 71 with a creatinine of 3.7, slightly worse compared to yesterday. Sodium is at 131. The patient denies having any chest pain. No significant hypotension. Remains on aspirin. Remains on metoprolol 25 mg p.o. twice a day. Cardiology on the case. She has significant cardiomyopathy. She is post acute non-STEMI. Not a candidate for cardiac catheterization due to renal impairment. Objective - Vital Signs Vital signs: Vital Signs Temp 97.8 F 02/11/24 04:00 Pulse 97 02/11/24 08:30 Resp 16 02/11/24 08:30 BP 127/61 02/11/24 08:30 Pulse Ox 93 L 02/11/24 08:30 FiO2 Intake & Output 02/10/24 02/11/24 02/11/24 18:59 06:59 18:59 Intake Total 649.833 59.917 0 Output Total 600 500 Balance 49.833 -440.083 0 Weight 73.9 kg Intake: Intake, IV Titration 55.833 59.917 Amount Furosemide 100 mg In 55.833 59.917 Sodium Chloride 0.9% 90 ml @ 10 MG/HR 10 mls/hr IV .Q10H [facility] Rx#: [id number] Oral 594 0 Output: Urine 600 500 Other: Voiding Method Bedside Commode Bedside Commode Bedside Commode Indwelling Catheter Indwelling Catheter Indwelling Catheter - Exam GENERAL EXAM: Alert, 58-year-old white female, appearing older than stated age, comfortable in no apparent distress. HEAD: Normocephalic and atraumatic EYES: Normal reaction of pupils, equal size. NOSE: Clear with pink turbinates. THROAT: No erythema or exudates. NECK: No masses, no JVD. CHEST: No chest wall deformity. LUNGS: Equal air entry with bibasilar inspiratory crackles and mild and expiratory wheezes heard posteriorly and bilaterally. On 2 L/min nasal cannula. SpO2 97%. No conversational dyspnea or accessory muscle use while at rest. CVS: S1 and S2 normal with no audible murmur, regular rhythm. No extra heart sounds ABDOMEN: No hepatosplenomegaly, active bowel sounds, no guarding or rigidity. SPINE: No scoliosis or deformity SKIN: No rashes CENTRAL NERVOUS SYSTEM: No focal deficits, tone is normal in all 4 extremities. EXTREMITIES: There is bilateral lower extremity pitting edema, 1-2+ bilaterally. No clubbing, or cyanosis. Peripheral pulses are intact. - Labs CBC & Chem 7: 02/10/24 06:46 02/11/24 05:35 Labs: Abnormal Lab Results - Last 24 Hours (Table) 02/10/24 02/10/24 02/10/24 Range/Units 11:43 16:43 20:19 Sodium (137-145) mmol/L Carbon Dioxide (22-30) mmol/L BUN (7-17) mg/dL Creatinine (0.52-1.04) mg/dL Glucose (74-99) mg/dL POC Glucose (mg/dL) 314 H 320 H 266 H (70-110) mg/dL Calcium (8.4-10.2) mg/dL 02/11/24 02/11/24 02/11/24 Range/Units 05:35 06:05 10:36 Sodium 131 L (137-145) mmol/L Carbon Dioxide 20 L (22-30) mmol/L BUN 71 H (7-17) mg/dL Creatinine 3.71 H (0.52-1.04) mg/dL Glucose 200 H (74-99) mg/dL POC Glucose (mg/dL) 262 H 429 H (70-110) mg/dL Calcium 7.5 L (8.4-10.2) mg/dL Microbiology - Last 24 Hours (Table) 02/07/24 10:01 Blood Culture - Preliminary Blood Assessment and Plan Assessment: Acute non-ST elevation WI, patient was initially placed on heparin infusion per protocol, which is currently paused. Also has Nitropaste on. Denies any further chest pain. The patient is currently off IV heparin. Not a candidate for further cardiac intervention at this point due to her underlying renal failure. Cardiology on the case. She is free of any chest pain at this point in time Acute hypoxemic respiratory failure, currently on 2 L/min nasal cannula, secondary to exacerbation of systolic congestive heart failure and above, Chest x-ray on admission shows diffuse interstitial edema as well as bilateral consolidation and small effusions. Findings consistent with congestive heart failure, however, superimposed community-acquired bibasilar pneumonia is not excluded. Ischemic cardiomyopathy with an estimated left ventricular ejection fraction severely impaired at 20 to 25% as well as moderate to severe mitral valve regurgitation, currently on Lasix infusion at 5 mg/h, responding to diuresis with Lasix drip. Negative fluid balance. Severe mitral valve regurgitation Acute febrile illness, empirically covered on antibiotics, currently afebrile and hemodynamically stable Normocytic normochromic anemia, no overt signs of bleeding, being evaluated by general surgery. Acute kidney injury, likely cardiorenal, worsening creatinine, stable since yesterday the patient is producing adequate amount of urine output. Metabolic non-anion gap acidosis, secondary to above Chronic obstructive pulmonary disease, stable Diabetes mellitus type 1 History of hyperlipidemia History of hypertension History of CVA/TIA History of hypothyroidism History of fibromyalgia History of GERD Mildly elevated LFTs, hepatitis panel nonreactive Former tobacco smoker as of 55 days ago, before this 1/2 pack/day or approximately 15-year pack history' Plan: No significant improvement overall condition. Suboptimal response to Lasix drip Continue to use of oxygen by nasal cannula wean the patient's FiO2, currently on 2 L Continue Lasix drip, this will be increased to 10 mg an hour Not a candidate for cardiac catheterization at this point in time She did sustain an acute non-ST segment elevation myocardial infarction. Troponins peaked at 2.12. At same time, the patient had an echocardiogram that showed CHF with an ejection fraction of 20 to 25% and moderate to severe mitral regurgitation. EKG showing septal Q waves. The patient also has a component of acute kidney injury related to cardiorenal factors. She is being seen by various consultants. Not a candidate for cardiac catheterization because of her underlying renal dysfunction and the patient is being treated medically. Reviewed the chest x-ray is consistent with CHF with possible small bilateral pleural effusions. Monitor electrolytes Will monitor fluid balance. Will monitor renal function.
--- NOTE | 2024-02-11 12:54 | P.PN ---
Subjective Progress Note Date: 02/11/24 * 58 years old female with past medical history of multiple medical problems as below She has been incarcerated for 52 days, there is officer at bedside. * Patient presents because of shortness of breath and exertional dyspnea has for the last 2 days, she states she hears herself wheezing when she lies down. Currently she is breathing quietly. * She is complaining for mild chest pain on the left side, nonradiating nonspecific, feels much better now and very mild. * She follow-up with her public relations studies director Dr. Donla Herrera and scaffolding helper Dr. Babb who examined her about 2 months ago where she has some mild ulcer In the bottom of her right total * This morning patient has low-grade fever 100.2 * She is also mildly tachypneic around 22 * She is saturating 93% on 2 L oxygen via nasal cannula * Labs reviewed showing hemoglobin of 7.7, rest of CBC is unremarkable * BMP liver enzymes not elevated. INR 0.9. * Lactic 0.9 * proBNP is elevated 25 100 * EKG showing sinus rhythm at [address]-T changes, no left bundle branch block 02/08/2024 Patient lying in bed, relaxed however she has mild tachypnea, mild distress She has significant coughing but she denies chest pain. Normal palpitation but patient has bilateral leg swelling No abdominal pain, no suprapubic pain or tenderness. But she has increased frequency of urination, last night she peed 4 times which is unusual for her. Urine analysis suspicious for infection and patient had low-grade temperature of 100.2 and she was started on Rocephin pending urine culture. Bladder scan was checked it was -101-150. She has about 900-1000 mL of urine output overnight.. Glucose improved after we stopped her Levemir 8 units twice daily, recommend to start it as 5 units daily. Continue with sliding scale. Also because of her tachypnea we will going to repeat chest x-ray. Renal function has worsened to 3.3 in the close were consulted. No evidence of hypotension. No NSAIDs Hemoglobin stable at 7.1, no need for endoscopy by a GI team. Workup so far showing anemia of chronic disease, B12 and folate is pending. Patient continued on heparin drip for her non-STEMI. We are going to check occult blood in the s tool Patient currently on IV Lasix 40 mg 3 times a day. We lowered to twice a day given worsening renal function. Further recommendation pending further workup like chest x-ray 02/09/2024 Patient still complaining of shortness of breath but improving. Leg swelling is coming down No chest pain. Patient remains on Lasix drip. Heparin drip was discontinued Her creatinine was elevated yesterday, she has evidence of urine retention and Saldaña catheter was placed IV Lasix was switched to Lasix drip 5 mg/h. Repeat 2.2 L yesterday Saldaña catheter in place She is currently also on aspirin. Urine culture is negative she remains on ceftriaxone. Pneumonia also not entirely excluded. Check pro- Calcitonin tomorrow and repeat chest x-ray tomorrow General ultrasound at bedside 02/10/24: Patient seen and evaluated at bedside, blood work reviewed WBC 6.1 hemoglobin 7.2, serum chemistry sodium 129 BUN 69 creatinine 3.44 magnesium 1.9 procalcitonin 1.69, chest x-ray does show diffuse interstitial opacity, patient denies blood in stool : Patient seen and evaluated at bedside. Serum chemistry reviewed creatinine 3.71 sodium 131, magnesium 1.8 input from nephrology. Patient bernadine ins on Lasix drip. GENERAL: The patient is alert and oriented x3, not in any acute distress. Ill appearance, pale appearing HEENT: Pupils are round and equally reacting to light. EOMI. Normocephalic, atraumatic. No pharyngeal erythema. No thyromegaly. CARDIOVASCULAR: S1 and S2 present. No murmurs, rubs, or gallops. PULMONARY: Decreased breath sounds bilaterally ABDOMEN: Soft, nontender, nondistended, normoactive bowel sounds. No palpable organomegaly. Saldaña catheter in place MUSCULOSKELETAL: No joint swelling or deformity. EXTREMITIES: No cyanosis, clubbing, 1+ bilateral pitting leg edema. NEUROLOGICAL: Gross neurological examination did not reveal any focal deficits. Assessment: Acute congestive heart failure with systolic dysfunction ejection fraction of 20-25 % New onset cardiomyopathy Acute hypoxemic respiratory failure multifactorial CHF, multifocal pneumonia Multifocal pneumonia Non-ST elevated NM Acute kidney injury on chronic kidney disease, nonoliguric Acute on chronic anemia of chronic disease Acute urinary tract infection, urine culture showing skin or genital kwesi Chronic kidney disease stage II with acute kidney injury Diabetes mellitus type 2 Plan: * In regards to hypoxemic respiratory failure, CHF exacerbation, continue pa tient on IV Lasix drip, continue to monitor intake and output continue with fluid restriction * Regards to multifocal pneumonia procalcitonin elevated continue IV Rocephin day 3/ * In regards to elevated troponin, continue current management medically, not a candidate for cardiac catheterization secondary to renal failure * In regards to diabetes mellitus Accu-Cheks ACHS continue patient on corre ctional insulin and Levemir * In regards to anemia, continue to monitor H&H transfuse if hemoglobin less than 7 Objective - Vital Signs Vital signs: Vital Signs Temp 97.8 F 02/11/24 04:00 Pulse 97 02/11/24 08:30 Resp 16 02/11/24 08:30 BP 127/61 02/11/24 08:30 Pulse Ox 93 L 02/11/24 08:30 FiO2 Intake & Output 02/10/24 02/11/24 02/11/24 18:59 06:59 18:59 Intake Total 649.833 59.917 0 Output Total 600 500 Balance 49.833 -440.083 0 Weight 73.9 kg Intake: Intake, IV Titration 55.833 59.917 Amount Furosemide 100 mg In 55.833 59.917 Sodium Chloride 0.9% 90 ml @ 10 MG/HR 10 mls/hr IV .Q10H [facility] Rx#: [id number] Oral 594 0 Output: Urine 600 500 Other: Voiding Method Bedside Commode Bedside Commode Bedside Commode Indwelling Catheter Indwelling Catheter Indwelling Catheter - Labs CBC & Chem 7: 02/10/24 06:46 02/11/24 05:35 Labs: Abnormal Lab Results - Last 24 Hours (Table) 02/10/24 02/10/24 02/10/24 Range/Units 11:43 16:43 20:19 Sodium (137-145) mmol/L Carbon Dioxide (22-30) mmol/L BUN (7-17) mg/dL Creatinine (0.52-1.04) mg/dL Glucose (74-99) mg/dL POC Glucose (mg/dL) 314 H 320 H 266 H (70-110) mg/dL Calcium (8.4-10.2) mg/dL 02/11/24 02/11/24 Range/Units 05:35 06:05 Sodium 131 L (137-145) mmol/L Carbon Dioxide 20 L (22-30) mmol/L BUN 71 H (7-17) mg/dL Creatinine 3.71 H (0.52-1.04) mg/dL Glucose 200 H (74-99) mg/dL POC Glucose (mg/dL) 262 H (70-110) mg/dL Calcium 7.5 L (8.4-10.2) mg/dL Microbiology - Last 24 Hours (Table) 02/07/24 10:01 Blood Culture - Preliminary Blood
[2024-02-11 13:02] LABS: Glucose,Whole Blood 460 mg/dL (70-110)
[2024-02-11] MEDS ORDERED: DEXTROSE 50% SYRINGE 50 ML IVP PRN ×2 (13:21)
[2024-02-11] MEDS: INSULIN ASPART (NovoLOG) 100 UNIT/ML VIAL SQ ONE (13:56)
[2024-02-11 16:57] LABS: Glucose,Whole Blood 156 mg/dL (70-110)
[2024-02-11] MEDS: INSULIN ASPART (NovoLOG) 100 UNIT/ML VIAL SQ SCH (16:58)
[2024-02-11 20:10] LABS: Glucose,Whole Blood 56 mg/dL (70-110)
[2024-02-11 20:38] LABS: Glucose,Whole Blood 59 mg/dL (70-110)
[2024-02-11] MEDS: DEXTROSE 50% SYRINGE 50 ML IVP PRN (20:42)
[2024-02-11 21:06] LABS: Glucose,Whole Blood 157 mg/dL (70-110)
[2024-02-12 06:02] LABS: Glucose,Whole Blood 321 mg/dL (70-110)
[2024-02-12] MEDS: ALBUTEROL NEBULIZED 2.5 MG/3 ML INHALATION SCH (07:39)
--- NOTE | 2024-02-12 07:44 | XR ---
EXAMINATION TYPE: XR chest 1V DATE OF EXAM: 02/12/2024 COMPARISON: 02/10/2024 HISTORY: Shortness of breath TECHNIQUE: Single frontal view of the chest is obtained. FINDINGS: Diffuse interstitial opacity and bibasilar opacities are unchanged compared to previous. T he pattern suggests CHF. Underlying pneumonia not excluded. Loop recorder device overlying the left T here is no pneumothorax. The osseous structures and soft tissues are stable. IMPRESSION: Diffuse bilateral infiltrate with small effusion or early CHF or edema. Otherwise consid er pneumonia.
--- NOTE | 2024-02-12 10:33 | P.PN ---
Subjective Patient is seen in follow-up for acute kidney injury. Renal function little worse from diuresis. Creatinine 3.71 yesterday. Currently on Lasix drip. Has Saldaña catheter for urinary retention. Nonoliguric. Vital signs are stable. General: No acute distress. HEENT: Head exam is unremarkable. On nasal cannula. LUNGS: No audible rhonchi or wheezes. HEART: Rate and Rhythm are regular. ABDOMEN: Nontender. EXTREMITITES: No edema. Objective - Vital Signs Vital signs: Vital Signs Temp 97.7 F 02/12/24 08:51 Pulse 93 02/12/24 08:51 Resp 18 02/12/24 08:51 BP 115/56 02/12/24 08:51 Pulse Ox 94 L 02/12/24 08:51 FiO2 Intake & Output 02/11/24 02/12/24 02/12/24 18:59 06:59 18:59 Intake Total 462 584.416 282.167 Output Total 700 525 Balance -238 59.416 282.167 Weight 75.1 kg Intake: Intake, IV Titration 84.416 42.167 Amount Furosemide 100 mg In 84.416 42.167 Sodium Chloride 0.9% 90 ml @ 10 MG/HR 10 mls/hr IV .Q10H [facility] Rx#: [id number] Oral 462 500 240 Output: Urine 700 525 Other: Voiding Method Bedside Commode Bedside Commode Bedside Commode Indwelling Catheter Indwelling Catheter Indwelling Catheter - Labs CBC & Chem 7: 02/10/24 06:46 02/11/24 05:35 Labs: Abnormal Lab Results - Last 24 Hours (Table) 02/11/24 02/11/24 02/11/24 Range/Units 10:36 13:00 16:55 POC Glucose (mg/dL) 429 H 460 H 156 H (70-110) mg/dL 02/11/24 02/11/24 02/11/24 Range/Units 20:09 20:36 21:04 POC Glucose (mg/dL) 56 L 59 L 157 H (70-110) mg/dL 02/12/24 Range/Units 06:01 POC Glucose (mg/dL) 321 H (70-110) mg/dL Assessment and Plan Plan: Assessment: 1. Acute kidney injury secondary to ATN secondary to cardiorenal syndrome. Creatinine 3.71 yesterday. Creatinine as low as 0.98 dated March 01, 2022. No hydronephrosis noted on kidney ultrasound. Serologies negative. 2. Acute on chronic systolic CHF with ejection fraction of 20 to 25% with moderate to severe mitral regurgitation and mild pulmonary hypertension. 3. Volume overload. Improving with diuresis. 4. Anemia. Iron deficiency noted. Status post IV iron. On Aranesp. GI following. 5. Metabolic acidosis secondary to acute kidney injury. On oral bicarb. Better. 6. Hypervolemic hyponatremia. Also component of hypertonicity from hyperglycemia. Better. 7. Urinary retention status post Saldaña catheter placement. On Flomax. Plan: Maintain Lasix drip for now. Strict I's and O's. Maintain 1200 cc fluid restriction. Blood glucose control. Continue to monitor renal function and urine output.
[2024-02-12 11:44] LABS: Glucose,Whole Blood 361 mg/dL (70-110)
[2024-02-12 11:54] LABS: African American GFR (CKD) 14 (>60 ml/min/1.73 sqM); Anion Gap 6 mmol/L; Blood Urea Nitrogen 80 mg/dL (7-17); Calcium 7.5 mg/dL (8.4-10.2); Carbon Dioxide 21 mmol/L (22-30); Chloride 104 mmol/L (98-107); Glucose 286 mg/dL (74-99); Magnesium 1.8 mg/dL (1.6-2.3); Non-African American GFR(CKD) 12 (>60 ml/min/1.73 sqM); Potassium 4.2 mmol/L (3.5-5.1); Sodium 131 mmol/L (137-145)
[2024-02-12 11:58] LABS: Basophils % (A) 0 %; Eosinophils % (A) 1 %; HCT 20.2 % (34.0-46.0); Lymphocytes % (A) 16 %; MCH 31.2 pg (25.0-35.0); MCHC 32.9 g/dL (31.0-37.0); MCV 94.8 fL (80.0-100.0); Mean Platelet Volume 8.4; Monocytes # (A) 0.5 k/uL (0-1.0); Monocytes % (A) 8 %; Neutrophils # (A) 4.4 k/uL (1.3-7.7); Neutrophils % (A) 73 %; Platelet Count 362 k/uL (150-450); RBC 2.13 m/uL (3.80-5.40); RDW 13.2 % (11.5-15.5); WBC 6.1 k/uL (3.8-10.6)
[2024-02-12] MEDS: INSULIN ASPART (NovoLOG) 100 UNIT/ML VIAL SQ SCH (12:09)
[2024-02-12 12:17] LABS: HGB 6.7 gm/dL (11.4-16.0)
[2024-02-12 13:13] LABS: Glucose,Whole Blood 355 mg/dL (70-110)
--- NOTE | 2024-02-12 13:19 | P.PN ---
Subjective Progress Note Date: 02/12/24 * 58 years old female with past medical history of multiple medical problems as below She has been incarcerated for 52 days, there is officer at bedside. * Patient presents because of shortness of breath and exertional dyspnea has for the last 2 days, she states she hears herself wheezing when she lies down. Currently she is breathing quietly. * She is complaining for mild chest pain on the left side, nonradiating nonspecific, feels much better now and very mild. * She follow-up with her medical service technician Dr. Donal Herrera and director mobile Dr. Babb who examined her about 2 months ago where she has some mild ulcer In the bottom of her right total * This morning patient has low-grade fever 100.2 * She is also mildly tachypneic around 22 * She is saturating 93% on 2 L oxygen via nasal cannula * Labs reviewed showing hemoglobin of 7.7, rest of CBC is unremarkable * BMP liver enzymes not elevated. INR 0.9. * Lactic 0.9 * proBNP is elevated 25 100 * EKG showing sinus rhythm at [address]-T changes, no left bundle branch block 02/08/2024 Patient lying in bed, relaxed however she has mild tachypnea, mild distress She has significant coughing but she denies chest pain. Normal palpitation but patient has bilateral leg swelling No abdominal pain, no suprapubic pain or tenderness. But she has increased frequency of urination, last night she peed 4 times which is unusual for her. Urine analysis suspicious for infection and patient had low-grade temperature of 100.2 and she was started on Rocephin pending urine culture. Bladder scan was checked it was -101-150. She has about 900-1000 mL of urine output overnight.. Glucose improved after we stopped her Levemir 8 units twice daily, recommend to start it as 5 units daily. Continue with sliding scale. Also because of her tachypnea we will going to repeat chest x-ray. Renal function has worsened to 3.3 in the close were consulted. No evidence of hypotension. No NSAIDs Hemoglobin stable at 7.1, no need for endoscopy by a GI team. Workup so far showing anemia of chronic disease, B12 and folate is pending. Patient continued on heparin drip for her non-STEMI. We are going to check occult blood in the s tool Patient currently on IV Lasix 40 mg 3 times a day. We lowered to twice a day given worsening renal function. Further recommendation pending further workup like chest x-ray 02/09/2024 Patient still complaining of shortness of breath but improving. Leg swelling is coming down No chest pain. Patient remains on Lasix drip. Heparin drip was discontinued Her creatinine was elevated yesterday, she has evidence of urine retention and Saldaña catheter was placed IV Lasix was switched to Lasix drip 5 mg/h. Repeat 2.2 L yesterday Saldaña catheter in place She is currently also on aspirin. Urine culture is negative she remains on ceftriaxone. Pneumonia also not entirely excluded. Check pro- Calcitonin tomorrow and repeat chest x-ray tomorrow General ultrasound at bedside 02/10/24: Patient seen and evaluated at bedside, blood work reviewed WBC 6.1 hemoglobin 7.2, serum chemistry sodium 129 BUN 69 creatinine 3.44 magnesium 1.9 procalcitonin 1.69, chest x-ray does show diffuse interstitial opacity, patient denies blood in stool : Patient seen and evaluated at bedside. Serum chemistry reviewed creatinine 3.71 sodium 131, magnesium 1.8 input from nephrology. Patient bernadine ins on Lasix drip. 02/12/24: Patient seen and evaluated at bedside, blood work reviewed, blood glucose ranging between 1 50-300, mealtime insulin adjusted. CBC shows hemoglobin of 6.7, magnesium of 1 point patient remains on 3 L of oxygen. Patient does complain of shortness of breath GENERAL: The patient is alert and oriented x3, not in any acute distress. Ill appearance, pale appearing HEENT: Pupils are round and equally reacting to light. EOMI. Normocephalic, atraumatic. No pharyngeal erythema. No thyromegaly. CARDIOVASCULAR: S1 and S2 present. No murmurs, rubs, or gallops. PULMONARY: Decreased breath sounds bilaterally ABDOMEN: Soft, nontender, nondistended, normoactive bowel sounds. No palpable organomegaly. Saldaña catheter in place MUSCULOSKELETAL: No joint swelling or deformity. EXTREMITIES: No cyanosis, clubbing, 1+ bilateral pitting leg edema. NEUROLOGICAL: Gross neurological examination did not reveal any focal deficits. Assessment: Acute congestive heart failure with systolic dysfunction ejection fraction of 20-25 % New onset cardiomyopathy Acute hypoxemic respiratory failure multifactorial CHF, multifocal pneumonia Multifocal pneumonia Non-ST elevated WI Acute kidney injury on chronic kidney disease, nonoliguric Acute on chronic anemia of chronic disease Acute urinary tract infection, urine culture showing skin or genital kwesi Chronic kidney disease stage II with acute kidney injury Diabetes mellitus type 2 Plan: * In regards to hypoxemic respiratory failure, CHF exacerbation, continue patient on IV Lasix drip, continue to monitor intake and output continue with fluid restriction * Regards to multifocal pneumonia procalcitonin elevated continue IV Rocephin day 4 / * In regards to elevated troponin, continue current management medically, not a candidate for cardiac catheterization secondary to renal failure * In regards to diabetes mellitus Accu-Cheks ACHS continue patient on correctional insulin, NovoLog and Levemir * In regards to anemia, continue to monitor H&H transfuse if hemoglobin less than 7, 1 unit of packed RBC ordered, fecal occult blood test ordered Objective - Vital Signs Vital signs: Vital Signs Temp 97.7 F 02/12/24 08:51 Pulse 93 02/12/24 08:51 Resp 18 02/12/24 08:51 BP 115/56 02/12/24 08:51 Pulse Ox 94 L 02/12/24 08:51 FiO2 Intake & Output 02/11/24 02/12/24 02/12/24 18:59 06:59 18:59 Intake Total 462 584.416 282.167 Output Total 700 525 Balance -238 59.416 282.167 Weight 75.1 kg Intake: Intake, IV Titration 84.416 42.167 Amount Furosemide 100 mg In 84.416 42.167 Sodium Chloride 0.9% 90 ml @ 10 MG/HR 10 mls/hr IV .Q10H [facility] Rx#: [id number] Oral 462 500 240 Output: Urine 700 525 Other: Voiding Method Bedside Commode Bedside Commode Bedside Commode Indwelling Catheter Indwelling Catheter Indwelling Catheter - Labs CBC & Chem 7: 02/12/24 10:43 02/12/24 10:43 Labs: Abnormal Lab Results - Last 24 Hours (Table) 02/11/24 02/11/24 02/11/24 Range/Units 10:36 13:00 16:55 POC Glucose (mg/dL) 429 H 460 H 156 H (70-110) mg/dL 02/11/24 02/11/24 02/11/24 Range/Units 20:09 20:36 21:04 POC Glucose (mg/dL) 56 L 59 L 157 H (70-110) mg/dL 02/12/24 Range/Units 06:01 POC Glucose (mg/dL) 321 H (70-110) mg/dL
[2024-02-12] MEDS: MAGNESIUM SULFATE-D5W PMX 1 GM in DEXTROSE/WATER 1 100ML.BAG IVPB SCH (13:45)
--- NOTE | 2024-02-12 14:41 | P.PN ---
Subjective Progress Note Date: 02/12/24 Patient is a 58-year-old white female with past medical history significant for COPD, chronic ongoing tobacco dependence, CVA/TIA, diabetes mellitus, hyperlipidemia, hypertension, hypothyroidism, fibromyalgia, GERD, among other things. Patient presented back on 02/06/2024 from senior living with chief complaint of increased lower extremity swelling. She states that she first noted the swelling back in December,. It is progressively worsened, she states she has gained approximately 20 pounds over the last 2 months. Approximately 10 days ago she was awoken at night with substernal chest pain. Nonradiating. With associated shortness of breath and sweating. Lasted up to 15 minutes. She is also had a nonproductive cough. She was noted to be febrile this admission. She is empirically covered on antibiotics. On arrival to the emergency room, she was noted to have elevated troponins of 1.29, 1.76, and 2.2. EKG showed normal sinus rhythm with left bundle branch block, without any other acute isc hemic changes. No previous EKG for comparison. She was started on heparin infusion per protocol. She also was on a Nitropaste. Echocardiogram showed a severely impaired left ventricular ejection fraction of 20 to 25%, and moderate to severe mitral regurgitation. Today, she was started on a Lasix infusion at 5 mg/h. Heparin infusion was stopped as the patient is anemic. Patient denies any acute blood loss. No vaginal bleeding. No juan blood in stool. No melena. No nausea or vomiting or hematic emesis. Last colonoscopy was reportedly around 10 years ago. She is currently lying in bed, on 2 L/min nasal cannula. Chest x-ray on admission shows diffuse interstitial edema as well as bilateral consolidation and small effusions. Findings consistent with congestive heart failure. NT proBNP was elevated 25,000. Patient not making much urine despite Lasix infusion. Patient did have 1 episode of fever during her admission with a Tmax of 100.2 F. She was empirically she was empirically placed on Rocephin. Negative for influenza, RSV, COVID. Most recent BMP from today: Sodium 130, potassium 5.1, chloride 104, serum bicarb down to 17, BUN 63, creatinine worsening and 3.34, glucose 229. LFTs mildly elevated. Hepatitis panel nonreactive. Overall, hemodynamically stable. On 02/08/2024, seen the patient for a follow-up. The patient is currently on 3 L of oxygen by nasal cannula with a pulse ox of 94%. She should be able to wean down. She is on Lasix drip at 5 mg an hour and the patient is producing adequate amount of urine output. Her fluid balance is negative. As mentioned, the patient is post non-ST segment ovation myocardial infarction the patient is being seen by cardiology. The patient has severe cardiomyopathy with impaired left ventricular ejection fraction. Her blood work from today shows a BUN of 66 with a creatinine of 3.41 and this is consistent with an acute on chronic kidney injury. Sodium levels at 129, potassium is at 4.4 with a WBC count of 6.3 and a hemoglobin of 7.4. The patient is on IV Rocephin as an empiric antibiotic coverage. She is currently afebrile. The patient is being seen by cardiology. The patient will be kept on IV Lasix. Not a candidate for any invasive cardiac workup due to her acute on top of chronic kidney injury at this point in time. Her comorbidities are multiple. Unsure if she does have underlying coronary artery disease. Nevertheless, she has previous history of CVA, diabetes mellitus type 2, hypothyroidism and CHF. She was in senior living for being arrested due to possession of amphetamines. Vasculitis workup was negative including a negative EDSON and a negative P and C ANCA. Hepatitis profile was also negative. On 02/10/2024, the patient is being seen for a follow-up. No new complaints. No significant shortness of breath at rest. Remains on Lasix drip. Producing adequate amount of urine output. Blood work from today was noticed that the patient has a white cell count of 6 with a hemoglobin of 7.2 and a PET scan at 360. BUN 69 with a creatinine of 3.4 and a sodium levels at 129. The patient is being seen by cardiology and nephrology addition. She remains on Lasix drip which will be increased up to 10 mg an hour. Not a candidate for further cardiac catheterization based on underlying renal dysfunction. 02/11/2024, the patient is being seen for a follow-up. No new complaints. Monitor for improvement in her condition. She remains on 2 L of oxygen by nasal cannula. Fluid balance is -90 cc over the past 24 hours. Suboptimal response to diuretics and the patient remains on Lasix at 10 mg an hour. BUN 71 with a creatinine of 3.7, slightly worse compared to yesterday. Sodium is at 131. The patient denies having any chest pain. No significant hypotension. Remains on aspirin. Remains on metoprolol 25 mg p.o. twice a day. Cardiology on the case. She has significant cardiomyopathy. She is post acute non-STEMI. Not a candidate for cardiac catheterization due to renal impairment. The patient is seen today February 12, 2024 in follow-up on the selective care unit. She is currently sitting up in bed. Awake and alert in no acute distress. She is maintaining O2 saturation in the 90s on 3 L nasal cannula. She is afebrile. Hemodynamically stable. Today's chest x-ray reviewed reveals diffuse bilateral infiltrates with small effusion or early congestive heart failure. Hemoglobin 6.7. 1 unit of packed blood cells have been ordered. Platelets 362. White cou nt 6.1. Sodium 131. Potassium 4.2. Bicarb 21. BUN 80. Creatinine 3.89. Glucose 286. She remains on. Antibiotics in the form of ceftriaxone. Remains on a Lasix drip at 5 mg an hour. Currently in a -178 mL balance. Objective - Vital Signs Vital signs: Vital Signs Temp 96.6 F L 02/12/24 12:00 Pulse 80 02/12/24 12:00 Resp 16 02/12/24 12:00 BP 114/61 02/12/24 12:00 Pulse Ox 94 L 02/12/24 12:00 FiO2 Intake & Output 02/11/24 02/12/24 02/12/24 18:59 06:59 18:59 Intake Total 462 584.416 522.167 Output Total 700 525 300 Balance -238 59.416 222.167 Weight 75.1 kg Intake: Intake, IV Titration 84.416 42.167 Amount Furosemide 100 mg In 84.416 42.167 Sodium Chloride 0.9% 90 ml @ 10 MG/HR 10 mls/hr IV .Q10H [facility] Rx#: [id number] Oral 462 500 480 Output: Urine 700 525 300 Other: Voiding Method Bedside Commode Bedside Commode Bedside Commode Indwelling Catheter Indwelling Catheter Indwelling Catheter - Exam GENERAL EXAM: Alert, 58-year-old female, on 2 L nasal cannula, comfortable in no apparent distress. HEAD: Normocephalic and atraumatic EYES: Normal reaction of pupils, equal size. NOSE: Clear with pink turbinates. THROAT: No erythema or exudates. NECK: No masses, no JVD. CHEST: No chest wall deformity. LUNGS: Equal air entry with bibasilar inspiratory crackles and mild and expiratory wheezes heard posteriorly and bilaterally. No conversational dyspnea. CVS: S1 and S2 normal with no audible murmur, regular rhythm. No extra heart sounds ABDOMEN: No hepatosplenomegaly, active bowel sounds, no guarding or rigidity. SPINE: No scoliosis or deformity SKIN: No rashes CENTRAL NERVOUS SYSTEM: No focal deficits, tone is normal in all 4 extremities. EXTREMITIES: There is bilateral lower extremity pitting edema, 1-2+ bilaterally. No clubbing, or cyanosis. Peripheral pulses are intact. - Labs CBC & Chem 7: 02/12/24 10:43 02/12/24 10:43 Labs: Abnormal Lab Results - Last 24 Hours (Table) 02/11/24 02/11/24 02/11/24 Range/Units 16:55 20:09 20:36 RBC (3.80-5.40) m/uL Hgb (11.4-16.0) gm/dL Hct (34.0-46.0) % Sodium (137-145) mmol/L Carbon Dioxide (22-30) mmol/L BUN (7-17) mg/dL Creatinine (0.52-1.04) mg/dL Glucose (74-99) mg/dL POC Glucose (mg/dL) 156 H 56 L 59 L (70-110) mg/dL Calcium (8.4-10.2) mg/dL 02/11/24 02/12/24 02/12/24 Range/Units 21:04 06:01 10:43 RBC 2.13 L (3.80-5.40) m/uL Hgb 6.7 L* (11.4-16.0) gm/dL Hct 20.2 L (34.0-46.0) % Sodium (137-145) mmol/L Carbon Dioxide (22-30) mmol/L BUN (7-17) mg/dL Creatinine (0.52-1.04) mg/dL Glucose (74-99) mg/dL POC Glucose (mg/dL) 157 H 321 H (70-110) mg/dL Calcium (8.4-10.2) mg/dL 02/12/24 02/12/24 02/12/24 Range/Units 10:43 11:42 13:12 RBC (3.80-5.40) m/uL Hgb (11.4-16.0) gm/dL Hct (34.0-46.0) % Sodium 131 L (137-145) mmol/L Carbon Dioxide 21 L (22-30) mmol/L BUN 80 H (7-17) mg/dL Creatinine 3.89 H (0.52-1.04) mg/dL Glucose 286 H (74-99) mg/dL POC Glucose (mg/dL) 361 H 355 H (70-110) mg/dL Calcium 7.5 L (8.4-10.2) mg/dL Assessment and Plan Assessment: Acute non-ST elevation [place], patient was initially placed on heparin infusion per protocol, which is currently discontinued. Denies any further chest pain. Not a candidate for further cardiac intervention at this point due to her underlying renal failure. Acute hypoxemic respiratory failure, currently on 2 L/min nasal cannula, secondary to exacerbation of systolic congestive heart failure and above, Chest x-ray on admission shows diffuse interstitial edema as well as bilateral consol idation and small effusions. Findings consistent with congestive heart failure, however, superimposed community-acquired bibasilar pneumonia is not excluded. Ischemic cardiomyopathy with an estimated left ventricular ejection fraction severely impaired at 20 to 25% as well as moderate to severe mitral valve regurgitation, currently on Lasix infusion at 5 mg/h, responding to diuresis with Lasix drip. Negative fluid balance. Severe mitral valve regurgitation Acute febrile illness, recovered Normocytic normochromic anemia, current hemoglobin 6.7, receiving 1 unit of packed red blood cell Acute kidney injury, likely cardiorenal, worsening creatinine, the patient is producing adequate amount of urine output Metabolic non-anion gap acidosis, secondary to above Chronic obstructive pulmonary disease, stable Diabetes mellitus type 1 History of hyperlipidemia History of hypertension History of CVA/TIA History of hypothyroidism History of fibromyalgia History of GERD Mildly elevated LFTs, hepatitis panel nonreactive Former tobacco smoker as of 55 days ago, before this 1/2 pack/day or approximately 15-year pack history Plan: The patient was seen and evaluated Chest x-ray, labs and medications reviewed Receiving 1 unit of packed red blood cells today Continues on a Lasix drip Continue fluid restriction Nephrology following Titrate the FiO2 as tolerated We will continue to follow I have personally seen and examined the patient, performed the documentation and the assessment and plan as written. Number of minutes spent on the visit: 10.
[2024-02-12 16:43] LABS: Glucose,Whole Blood 289 mg/dL (70-110)
--- NOTE | 2024-02-12 18:35 | P.PN ---
Subjective HISTORY OF PRESENT ILLNESS: This is a 58-year-old female with a past medical history significant for former nicotine dependence, hypertension, CVA, hypothyroidism, and diabetes. Patient follows in the office with Dr. Saunders and was last seen in May 2023. We have been asked to see the patient in consultation for non-STEMI and CHF. Patient e xamined at the bedside in the emergency room. Patient is currently incarcerated and there is a cost estimating manager at the bedside. Patient states she has been feeling short of breath and feeling weak. She states this started about 2 days ago. She states that she was in court and afterwards they had to use a wheelchair to get her back into the vehicle as she was too weak to walk. She also reports feeling dizzy and having pounding in her chest. She reports a slight cough. She denied having a fever previously to her knowledge. However patient was febrile this morning with a temperature of 100.2. She also reports lower extremity edema that started in the middle of December. She reports nausea yesterd ay that was relieved with Zofran. Patient was found to be anemic on admission with a hemoglobin of 7.7. Repeat 7.1. Last hemoglobin was back in 2021 but was normal at 12.3. The patient denies a history of anemia. Unsure if this anemia is new or has been present for a while as her last blood work was not since 2021. She denies any blood in her stool or urine. She does report decreased urine output. Patient was also found to have acute kidney injury with a creatinine of 2.96. Back in 2021, patient's kidney function was within normal limits. Patient was also found to have elevated troponins and was started on IV heparin. She denied having any chest pain or pressure. Patient is a former cigarette smoker and has not smoked in 55 days since being in [facility]. She denies alcohol abuse many years ago but nothing recently. She denies drug use including marijuana. DIAGNOSTICS: - EKG reveals sinus mechanism with left bundle branch block. - Chest xray consolation of findings favor CHF over pneumonia. Correlate clinically. Underlying COPD. Loop recorder device seen. Bilateral conso lidation and small effusion with diffuse interstitial pattern.. - Laboratory data: WBC 6.2. Hemoglobin 7.1. Platelet count 300. Sodium 133. Potassium 4.9. BUN 56. Creatinine 2.96. AST 55. ALT 35. proBNP 25,100. Troponin 1.290. 1.760. 2.210. - Current home cardiac medications include Lipitor 20 mg at night. - Most recent echocardiogram obtained in February 2022 revealed ejection fraction 55 to 60%, mild MR, mild TR - Patient underwent dobutamine stress test in March 2023 at the office which was negative for ischemia 02/08/2024 Patient examined this morning at the bedside. Patient states her shortness of breath has improved today. She complains of mild chest discomfort when she feels short of breath. She states the chest pain is worse with deep inspiration. Her lower extremity edema has improved from yesterday. She has been transition to IV Lasix drip per nephrology. Echocardiogram completed revealing ejection fraction 20 to 25%, mild pulm hypertension, moderate to severe mitral regurgitation, mild aortic regurgitation, trace to mild tricuspid regurgitation and small pericardial effusion. 02/09/2024 Patient examined this morning at the bedside. Patient continues to report shortness of breath at the time of examination. She reports that she developed a cough also today. She reports chest discomfort that is worse with deep inspiration. She remains on a Lasix drip at 5 mg an hour. Creatinine 3.41. Hemoglobin 7.4. Blood pressure is stable. Telemetry reveals sinus mechanism. 02/10/2024 Patient examined this morning at the bedside. Patient continues to report shor tness of breath. She continues to have a cough. She denies any chest discomfort at the time of examination. She remains on a Lasix drip at 5 mg an hour. Creatinine today is 3.44. Hemoglobin 7.2. 02/11/2024 Patient examined this morning at the bedside. Patient reports that she slept well overnight. She currently denies any chest pain or pressure. She reports improvement in her shortness of breath and also with her cough. Renal function worsened today at 3.71. She remains on IV Lasix at 10 mg an hour. 02/11 Patient seen and examined. Patient still minutes to significant shortness breath mainly with exertion. She occasionally has some chest tightness however not clearly associated with exertion and more feels like she cannot take a deep breath in. Creatinine stable at 3.8. She is receiving 1 unit of packed red blood cell for hemoglobin 6.7. Remains on IV diuretics. PHYSICAL EXAM: VITAL SIGNS: Reviewed. GENERAL: Well-developed in no acute distress. HEENT: Head is normocephalic. Pupils are equal, round. Sclerae anicteric. Mucous membranes of the mouth are moist. Neck supple. No JVD or thyromegaly LUNGS: Respirations even and unlabored. Lungs essentially clear to auscultation bilaterally. HEART: Regular rate and rhythm. S1 and S2 heard. ABDOMEN: Soft. Nondistended. Nontender. EXTREMITIES: Normal range of motion. No clubbing or cyanosis. Peripheral pulses intact. 2+ bilateral lower extremity edema NEUROLOGIC: Awake and alert. Oriented x 3. ASSESSMENT: Febrile illness Shortness of breath Acute heart failure with reduced EF, 20 to 25% New onset cardiomyopathy, ischemic versus nonischemic Non-STEMI Left bundle branch block Acute kidney injury, renal function was fairly normal in 2021 Anemia, acute anemia versus anemia of chronic disease due to renal failure, duration of anemia/EDWINA unknown History of hypertension History of CVA x 2 Diabetes Hypothyroidism Former nicotine dependence Minimally elevated LFTs PLAN: Continue current cardiac medications Nephrology following. Continue IV Lasix infusion per nephrology. Daily weights, accurate intake and output, and monitoring of kidney function Patient is not a candidate for invasive cardiac workup at this time secondary to anemia and kidney function Further recommendations pending patient course Objective - Vital Signs Vital signs: Vital Signs Temp 97.2 F L 02/12/24 16:39 Pulse 84 02/12/24 18:16 Resp 20 02/12/24 18:16 BP 129/75 02/12/24 18:16 Pulse Ox 94 L 02/12/24 18:16 FiO2 Intake & Output 02/11/24 02/12/24 02/12/24 18:59 06:59 18:59 Intake Total 462 584.416 522.167 Output Total 700 525 500 Balance -238 59.416 22.167 Weight 75.1 kg Intake: Intake, IV Titration 84.416 42.167 Amount Furosemide 100 mg In 84.416 42.167 Sodium Chloride 0.9% 90 ml @ 10 MG/HR 10 mls/hr IV .Q10H [id number] Rx#: [id number] Oral 462 500 480 Blood Product 0 Unit 0 Output: Urine 700 525 500 Other: Voiding Method Bedside Commode Bedside Commode Indwelling Catheter Indwelling Catheter Indwelling Catheter - Labs CBC & Chem 7: 02/12/24 10:43 02/12/24 10:43 Labs: Abnormal Lab Results - Last 24 Hours (Table) 02/11/24 02/11/24 02/11/24 Range/Units 20:09 20:36 21:04 RBC (3.80-5.40) m/uL Hgb (11.4-16.0) gm/dL Hct (34.0-46.0) % Sodium (137-145) mmol/L Carbon Dioxide (22-30) mmol/L BUN (7-17) mg/dL Creatinine (0.52-1.04) mg/dL Glucose (74-99) mg/dL POC Glucose (mg/dL) 56 L 59 L 157 H (70-110) mg/dL Calcium (8.4-10.2) mg/dL Crossmatch 02/12/24 02/12/24 02/12/24 Range/Units 06:01 10:43 10:43 RBC 2.13 L (3.80-5.40) m/uL Hgb 6.7 L* (11.4-16.0) gm/dL Hct 20.2 L (34.0-46.0) % Sodium 131 L (137-145) mmol/L Carbon Dioxide 21 L (22-30) mmol/L BUN 80 H (7-17) mg/dL Creatinine 3.89 H (0.52-1.04) mg/dL Glucose 286 H (74-99) mg/dL POC Glucose (mg/dL) 321 H (70-110) mg/dL Calcium 7.5 L (8.4-10.2) mg/dL Crossmatch 02/12/24 02/12/24 02/12/24 Range/Units 11:42 13:00 13:12 RBC (3.80-5.40) m/uL Hgb (11.4-16.0) gm/dL Hct (34.0-46.0) % Sodium (137-145) mmol/L Carbon Dioxide (22-30) mmol/L BUN (7-17) mg/dL Creatinine (0.52-1.04) mg/dL Glucose (74-99) mg/dL POC Glucose (mg/dL) 361 H 355 H (70-110) mg/dL Calcium (8.4-10.2) mg/dL Crossmatch See Detail 05/06/24 Range/Units 16:40 RBC (3.80-5.40) m/uL Hgb (11.4-16.0) gm/dL Hct (34.0-46.0) % Sodium (137-145) mmol/L Carbon Dioxide (22-30) mmol/L BUN (7-17) mg/dL Creatinine (0.52-1.04) mg/dL Glucose (74-99) mg/dL POC Glucose (mg/dL) 289 H (70-110) mg/dL Calcium (8.4-10.2) mg/dL Crossmatch Microbiology - Last 24 Hours (Table) 02/07/24 10:01 Blood Culture - Final Blood
[2024-02-12] MEDS: DESMOPRESSIN ACETATE 22 MCG in SODIUM CHLORIDE 0.9% 50 ML IVPB ONE (18:41)
[2024-02-12 21:49] LABS: Glucose,Whole Blood 214 mg/dL (70-110)
[2024-02-13 03:42] LABS: Glucose,Whole Blood 206 mg/dL (70-110)
[2024-02-13 06:18] LABS: Glucose,Whole Blood 251 mg/dL (70-110)
[2024-02-13 08:24] LABS: Glucose,Whole Blood 182 mg/dL (70-110)
[2024-02-13 09:44] LABS: HCT 22.4 % (34.0-46.0); HGB 7.4 gm/dL (11.4-16.0); MCH 30.8 pg (25.0-35.0); MCHC 32.9 g/dL (31.0-37.0); MCV 93.5 fL (80.0-100.0); Mean Platelet Volume 8.2; Platelet Count 377 k/uL (150-450); RDW 13.8 % (11.5-15.5); WBC 6.2 k/uL (3.8-10.6)
[2024-02-13 09:57] LABS: African American GFR (CKD) 15 (>60 ml/min/1.73 sqM); Anion Gap 7 mmol/L; Blood Urea Nitrogen 83 mg/dL (7-17); Carbon Dioxide 21 mmol/L (22-30); Chloride 105 mmol/L (98-107); Glucose 154 mg/dL (74-99); Non-African American GFR(CKD) 13 (>60 ml/min/1.73 sqM); Potassium 3.9 mmol/L (3.5-5.1); Sodium 133 mmol/L (137-145)
--- NOTE | 2024-02-13 10:44 | P.PN ---
Subjective Patient is seen in follow-up for acute kidney injury. Renal function stable. Creatinine 3.6. Currently on Lasix drip. Has Saldaña catheter for urinary retention. Nonoliguric. Vital signs are stable. General: No acute distress. HEENT: Head exam is unremarkable. On nasal cannula. LUNGS: No audible rhonchi or wheezes. HEART: Rate and Rhythm are regular. ABDOMEN: Nontender. EXTREMITITES: No edema. Objective - Vital Signs Vital signs: Vital Signs Temp 96.7 F L 02/13/24 08:00 Pulse 80 02/13/24 09:19 Resp 16 02/13/24 08:00 BP 118/55 02/13/24 08:00 Pulse Ox 94 L 02/13/24 08:00 FiO2 Intake & Output 02/12/24 02/13/24 02/13/24 18:59 06:59 18:59 Intake Total 890.167 31.5 220 Output Total 500 500 400 Balance 390.167 -468.5 -180 Intake: Intake, IV Titration 100.167 31.5 Amount Furosemide 100 mg In 100.167 31.5 Sodium Chloride 0.9% 90 ml @ 10 MG/HR 10 mls/hr IV .Q10H [facility] Rx#: [id number] Oral 480 220 Blood Product 310 Rc As-1 Unit 310 [id number] Output: Urine 500 500 400 Other: Voiding Method Indwelling Catheter Indwelling Catheter - Labs CBC & Chem 7: 02/13/24 09:10 02/13/24 09:10 Labs: Abnormal Lab Results - Last 24 Hours (Table) 02/12/24 02/12/24 02/12/24 Range/Units 10:43 10:43 11:42 RBC 2.13 L (3.80-5.40) m/uL Hgb 6.7 L* (11.4-16.0) gm/dL Hct 20.2 L (34.0-46.0) % Sodium 131 L (137-145) mmol/L Carbon Dioxide 21 L (22-30) mmol/L BUN 80 H (7-17) mg/dL Creatinine 3.89 H (0.52-1.04) mg/dL Glucose 286 H (74-99) mg/dL POC Glucose (mg/dL) 361 H (70-110) mg/dL Calcium 7.5 L (8.4-10.2) mg/dL Crossmatch 02/12/24 02/12/24 02/12/24 Range/Units 13:00 13:12 16:40 RBC (3.80-5.40) m/uL Hgb (11.4-16.0) gm/dL Hct (34.0-46.0) % Sodium (137-145) mmol/L Carbon Dioxide (22-30) mmol/L BUN (7-17) mg/dL Creatinine (0.52-1.04) mg/dL Glucose (74-99) mg/dL POC Glucose (mg/dL) 355 H 289 H (70-110) mg/dL Calcium (8.4-10.2) mg/dL Crossmatch See Detail 02/12/24 02/13/24 02/13/24 Range/Units 21:46 03:41 06:17 RBC (3.80-5.40) m/uL Hgb (11.4-16.0) gm/dL Hct (34.0-46.0) % Sodium (137-145) mmol/L Carbon Dioxide (22-30) mmol/L BUN (7-17) mg/dL Creatinine (0.52-1.04) mg/dL Glucose (74-99) mg/dL POC Glucose (mg/dL) 214 H 206 H 251 H (70-110) mg/dL Calcium (8.4-10.2) mg/dL Crossmatch 02/13/24 02/13/24 02/13/24 Range/Units 08:23 09:10 09:10 RBC 2.40 L (3.80-5.40) m/uL Hgb 7.4 L (11.4-16.0) gm/dL Hct 22.4 L (34.0-46.0) % Sodium 133 L (137-145) mmol/L Carbon Dioxide 21 L (22-30) mmol/L BUN 83 H (7-17) mg/dL Creatinine 3.60 H (0.52-1.04) mg/dL Glucose 154 H (74-99) mg/dL POC Glucose (mg/dL) 182 H (70-110) mg/dL Calcium 8.0 L (8.4-10.2) mg/dL Crossmatch Microbiology - Last 24 Hours (Table) 02/07/24 10:01 Blood Culture - Final Blood Assessment and Plan Plan: Assessment: 1. Acute kidney injury secondary to ATN secondary to cardiorenal syndrome. Creatinine fairly stable at 3.6 today. Creatinine as low as 0.98 dated March 01, 2022. No hydronephrosis noted on kidney ultrasound. Serologies negative. 2. Acute on chronic systolic CHF with ejection fraction of 20 to 25% with moderate to severe mitral regurgitation and mild pulmonary hypertension. 3. Volume overload. Improving with diuresis. 4. Anemia. Iron deficiency noted. Status post IV iron. On Aranesp. GI following. Status post blood transfusion this admission. Also received IV DDAVP. 5. Metabolic acidosis secondary to acute kidney injury. On oral bicarb. Sta ble. 6. Hypervolemic hyponatremia. Also component of hypertonicity from hyperglycemia. Better. 7. Urinary retention status post Saldaña catheter placement. On Flomax. Plan: Maintain Lasix drip for now. Repeat chest x-ray tomorrow morning. Strict I's and O's. Maintain 1200 cc fluid restriction. Blood glucose control. Continue to monitor renal function and urine output.
[2024-02-13 11:31] LABS: Glucose,Whole Blood 156 mg/dL (70-110)
--- NOTE | 2024-02-13 14:36 | P.PN ---
Subjective Progress Note Date: 02/13/24 Patient is a 58-year-old white female with past medical history significant for COPD, chronic ongoing tobacco dependence, CVA/TIA, diabetes mellitus, hyperlipidemia, hypertension, hypothyroidism, fibromyalgia, GERD, among other things. Patient presented back on 02/06/2024 from half-way with chief complaint of increased lower extremity swelling. She states that she first noted the swelling back in December,. It is progressively worsened, she states she has gained approximately 20 pounds over the last 2 months. Approximately 10 days ago she was awoken at night with substernal chest pain. Nonradiating. With associated shortness of breath and sweating. Lasted up to 15 minutes. She is also had a nonproductive cough. She was noted to be febrile this admission. She is empirically covered on antibiotics. On arrival to the emergency room, she was noted to have elevated troponins of 1.29, 1.76, and 2.2. EKG showed normal sinus rhythm with left bundle branch block, without any other acute isc hemic changes. No previous EKG for comparison. She was started on heparin infusion per protocol. She also was on a Nitropaste. Echocardiogram showed a severely impaired left ventricular ejection fraction of 20 to 25%, and moderate to severe mitral regurgitation. Today, she was started on a Lasix infusion at 5 mg/h. Heparin infusion was stopped as the patient is anemic. Patient denies any acute blood loss. No vaginal bleeding. No juan blood in stool. No melena. No nausea or vomiting or hematic emesis. Last colonoscopy was reportedly around 10 years ago. She is currently lying in bed, on 2 L/min nasal cannula. Chest x-ray on admission shows diffuse interstitial edema as well as bilateral consolidation and small effusions. Findings consistent with congestive heart failure. NT proBNP was elevated 25,000. Patient not making much urine despite Lasix infusion. Patient did have 1 episode of fever during her admission with a Tmax of 100.2 F. She was empirically she was empirically placed on Rocephin. Negative for influenza, RSV, COVID. Most recent BMP from today: Sodium 130, potassium 5.1, chloride 104, serum bicarb down to 17, BUN 63, creatinine worsening and 3.34, glucose 229. LFTs mildly elevated. Hepatitis panel nonreactive. Overall, hemodynamically stable. On 02/08/2024, seen the patient for a follow-up. The patient is currently on 3 L of oxygen by nasal cannula with a pulse ox of 94%. She should be able to wean down. She is on Lasix drip at 5 mg an hour and the patient is producing adequate amount of urine output. Her fluid balance is negative. As mentioned, the patient is post non-ST segment ovation myocardial infarction the patient is being seen by cardiology. The patient has severe cardiomyopathy with impaired left ventricular ejection fraction. Her blood work from today shows a BUN of 66 with a creatinine of 3.41 and this is consistent with an acute on chronic kidney injury. Sodium levels at 129, potassium is at 4.4 with a WBC count of 6.3 and a hemoglobin of 7.4. The patient is on IV Rocephin as an empiric antibiotic coverage. She is currently afebrile. The patient is being seen by cardiology. The patient will be kept on IV Lasix. Not a candidate for any invasive cardiac workup due to her acute on top of chronic kidney injury at this point in time. Her comorbidities are multiple. Unsure if she does have underlying coronary artery disease. Nevertheless, she has previous history of CVA, diabetes mellitus type 2, hypothyroidism and CHF. She was in half-way for being arrested due to possession of amphetamines. Vasculitis workup was negative including a negative EDSON and a negative P and C ANCA. Hepatitis profile was also negative. On 02/10/2024, the patient is being seen for a follow-up. No new complaints. No significant shortness of breath at rest. Remains on Lasix drip. Producing adequate amount of urine output. Blood work from today was noticed that the patient has a white cell count of 6 with a hemoglobin of 7.2 and a PET scan at 360. BUN 69 with a creatinine of 3.4 and a sodium levels at 129. The patient is being seen by cardiology and nephrology addition. She remains on Lasix drip which will be increased up to 10 mg an hour. Not a candidate for further cardiac catheterization based on underlying renal dysfunction. 02/11/2024, the patient is being seen for a follow-up. No new complaints. Monitor for improvement in her condition. She remains on 2 L of oxygen by nasal cannula. Fluid balance is -90 cc over the past 24 hours. Suboptimal response to diuretics and the patient remains on Lasix at 10 mg an hour. BUN 71 with a creatinine of 3.7, slightly worse compared to yesterday. Sodium is at 131. The patient denies having any chest pain. No significant hypotension. Remains on aspirin. Remains on metoprolol 25 mg p.o. twice a day. Cardiology on the case. She has significant cardiomyopathy. She is post acute non-STEMI. Not a candidate for cardiac catheterization due to renal impairment. The patient is seen today February 12, 2024 in follow-up on the selective care unit. She is currently sitting up in bed. Awake and alert in no acute distress. She is maintaining O2 saturation in the 90s on 3 L nasal cannula. She is afebrile. Hemodynamically stable. Today's chest x-ray reviewed reveals diffuse bilateral infiltrates with small effusion or early congestive heart failure. Hemoglobin 6.7. 1 unit of packed blood cells have been ordered. Platelets 362. White cou nt 6.1. Sodium 131. Potassium 4.2. Bicarb 21. BUN 80. Creatinine 3.89. Glucose 286. She remains on. Antibiotics in the form of ceftriaxone. Remains on a Lasix drip at 5 mg an hour. Currently in a -178 mL balance. The patient is seen today February 13, 2024 in follow-up on the selective care unit. She is awake and alert in no acute distress. Sitting up in bed. Blood and urine cultures revealed no growth. White count 6.2. Hemoglobin 7.4. Platelets 01/05/1978. Sodium 133. Potassium 3.9. Bicarb 21. BUN 83. Creatinine 3.60. Glucose 154. She remains on a Lasix drip currently at 5 mg/h. She remains on a heparin drip. Receiving sodium bicarb tablets. Continued on bronchodilators. Continued on antibiotics in the form of ceftriaxone. She is currently in a negative balance. Voided 1 L today. Objective - Vital Signs Vital signs: Vital Signs Temp 97.7 F 02/13/24 12:00 Pulse 84 02/13/24 12:00 Resp 25 H 02/13/24 12:00 BP 118/71 02/13/24 12:00 Pulse Ox 95 02/13/24 12:00 FiO2 Intake & Output 02/12/24 02/13/24 02/13/24 18:59 06:59 18:59 Intake Total 890.167 31.5 220 Output Total 500 500 400 Balance 390.167 -468.5 -180 Intake: Intake, IV Titration 100.167 31.5 Amount Furosemide 100 mg In 100.167 31.5 Sodium Chloride 0.9% 90 ml @ 10 MG/HR 10 mls/hr IV .Q10H [facility] Rx#: [id number] Oral 480 220 Blood Product 310 Rc As-1 Unit 310 [id number] Output: Urine 500 500 400 Other: Voiding Method Indwelling Catheter Indwelling Catheter - Exam GENERAL EXAM: Alert, 58-year-old female, sitting up in bed, on 3 L nasal cannula, in no apparent distress. HEAD: Normocephalic and atraumatic EYES: Normal reaction of pupils, equal size. NOSE: Clear with pink turbinates. THROAT: No erythema or exudates. NECK: No masses, no JVD. CHEST: No chest wall deformity. LUNGS: Equal air entry with bibasilar crackles and mild and expiratory wheezes heard bilaterally. No conversational dyspnea. CVS: S1 and S2 normal with no audible murmur, regular rhythm. No extra heart sounds ABDOMEN: No hepatosplenomegaly, active bowel sounds, no guarding or rigidity. SPINE: No scoliosis or deformity SKIN: No rashes CENTRAL NERVOUS SYSTEM: No focal deficits, tone is normal in all 4 extremities. EXTREMITIES: There is bilateral lower extremity pitting edema, 1-2+ bilaterally. No clubbing, or cyanosis. Peripheral pulses are intact. - Labs CBC & Chem 7: 02/13/24 09:10 02/13/24 09:10 Labs: Abnormal Lab Results - Last 24 Hours (Table) 02/12/24 02/12/24 02/12/24 Range/Units 13:00 16:40 21:46 RBC (3.80-5.40) m/uL Hgb (11.4-16.0) gm/dL Hct (34.0-46.0) % Sodium (137-145) mmol/L Carbon Dioxide (22-30) mmol/L BUN (7-17) mg/dL Creatinine (0.52-1.04) mg/dL Glucose (74-99) mg/dL POC Glucose (mg/dL) 289 H 214 H (70-110) mg/dL Calcium (8.4-10.2) mg/dL Crossmatch See Detail 02/13/24 02/13/24 02/13/24 Range/Units 03:41 06:17 08:23 RBC (3.80-5.40) m/uL Hgb (11.4-16.0) gm/dL Hct (34.0-46.0) % Sodium (137-145) mmol/L Carbon Dioxide (22-30) mmol/L BUN (7-17) mg/dL Creatinine (0.52-1.04) mg/dL Glucose (74-99) mg/dL POC Glucose (mg/dL) 206 H 251 H 182 H (70-110) mg/dL Calcium (8.4-10.2) mg/dL Crossmatch 02/13/24 02/13/24 02/13/24 Range/Units 09:10 09:10 11:29 RBC 2.40 L (3.80-5.40) m/uL Hgb 7.4 L (11.4-16.0) gm/dL Hct 22.4 L (34.0-46.0) % Sodium 133 L (137-145) mmol/L Carbon Dioxide 21 L (22-30) mmol/L BUN 83 H (7-17) mg/dL Creatinine 3.60 H (0.52-1.04) mg/dL Glucose 154 H (74-99) mg/dL POC Glucose (mg/dL) 156 H (70-110) mg/dL Calcium 8.0 L (8.4-10.2) mg/dL Crossmatch Microbiology - Last 24 Hours (Table) 02/07/24 10:01 Blood Culture - Final Blood Assessment and Plan Assessment: Acute non-ST elevation MD, patient was initially placed on heparin infusion per protocol, which is currently discontinued. Denies any further chest pain. Not a candidate for further cardiac intervention at this point due to her underlying renal failure. Acute hypoxemic respiratory failure, currently on 2 L/min nasal cannula, secondary to exacerbation of systolic congestive heart failure and above, Chest x-ray on admission shows diffuse interstitial edema as well as bilateral consolidation and small effusions. Findings consistent with congestive heart failure, however, superimposed community-acquired bibasilar pneumonia is not excluded. Ischemic cardiomyopathy with an estimated left ventricular ejection fraction severely impaired at 20 to 25% as well as moderate to severe mitral valve regurgitation, currently on Lasix infusion at 5 mg/h, responding to diuresis with Lasix drip. Negative fluid balance. Severe mitral valve regurgitation Acute febrile illness, recovered Normocytic normochromic anemia, current hemoglobin 7.4, received 1 unit of pack ed red blood cell Acute kidney injury, likely cardiorenal, worsening creatinine, the patient is producing adequate amount of urine output Metabolic non-anion gap acidosis, secondary to above Chronic obstructive pulmonary disease, stable Diabetes mellitus type 1 History of hyperlipidemia History of hypertension History of CVA/TIA History of hypothyroidism History of fibromyalgia History of GERD Mildly elevated LFTs, hepatitis panel nonreactive Former tobacco smoker, 1/2 pack/day or approximately 15-year pack history Plan: The patient was seen and evaluated Labs and medications reviewed Continues on a Lasix drip Continue fluid restriction Nephrology is following We will continue to follow I have personally seen and examined the patient, performed the documentation and the assessment and plan as written. Number of minutes spent on the visit: 10.
--- NOTE | 2024-02-13 16:25 | P.PN ---
Subjective Progress Note Date: 02/13/24 HISTORY OF PRESENT ILLNESS: This is a 58-year-old female with a past medical history significant for former nicotine dependence, hypertension, CVA, hypothyroidism, and diabetes. Patient follows in the office with Dr. Saunders and was last seen in May 2023. We have been asked to see the patient in consultation for non-STEMI and CHF. Patient examined at the bedside in the emergency room. Patient is currently incarcerated and there is a yarn wrapper at the bedside. Patient states she has been feeling short of breath and feeling weak. She states this started about 2 days ago. She states that she was in court and afterwards they had to use a wheelchair to get her back into the vehicle as she was too weak to walk. She also reports feeling dizzy and having pounding in her chest. She reports a sli ght cough. She denied having a fever previously to her knowledge. However patient was febrile this morning with a temperature of 100.2. She also reports lower extremity edema that started in the middle of December. She reports nausea yesterday that was relieved with Zofran. Patient was found to be anemic on admission with a hemoglobin of 7.7. Repeat 7.1. Last hemoglobin was back in 2021 but was normal at 12.3. The patient denies a history of anemia. Unsure if this anemia is new or has been present for a while as her last blood work was not since 2021. She denies any blood in her stool or urine. She does report decreased urine output. Patient was also found to have acute kidney injury with a creatinine of 2.96. Back in 2021, patient's kidney function was within normal limits. Patient was also found to have elevated troponins and was started on IV heparin. She denied having any chest pain or pressure. Patient is a former cigarette smoker and has not smoked in 55 days since being in retirement. She denies alcohol abuse many years ago but nothing recently. She denies drug use in cluding marijuana. DIAGNOSTICS: - EKG reveals sinus mechanism with left bundle branch block. - Chest xray consolation of findings favor CHF over pneumonia. Correlate clinically. Underlying COPD. Loop recorder device seen. Bilateral consolidation and small effusion with diffuse interstitial pattern.. - Laboratory data: WBC 6.2. Hemoglobin 7.1. Platelet count 300. Sodium 133. Potassium 4.9. BUN 56. Creatinine 2.96. AST 55. ALT 35. proBNP 25,100. Troponin 1.290. 1.760. 2.210. - Current home cardiac medications include Lipitor 20 mg at night. - Most recent echocardiogram obtained in February 2022 revealed ejection fraction 55 to 60%, mild MR, mild TR - Patient underwent dobutamine stress test in March 2023 at the office which was negative for ischemia 02/08/2024 Patient examined this morning at the bedside. Patient states her shortness of breath has improved today. She complains of mild chest discomfort when she feels short of breath. She states the chest pain is worse with deep inspiration. Her lower extremity edema has improved from yesterday. She has been transition to IV Lasix drip per nephrology. Echocardiogram completed revealing ejection fraction 20 to 25%, mild pulm hypertension, moderate to severe mitral regurgitation, mild aortic regurgitation, trace to mild tricuspid regurgitation and small pericardial effusion. 02/09/2024 Patient examined this morning at the bedside. Patient continues to report shortness of breath at the time of examination. She reports that she developed a cough also today. She reports chest discomfort that is worse with deep insp iration. She remains on a Lasix drip at 5 mg an hour. Creatinine 3.41. Hemoglobin 7.4. Blood pressure is stable. Telemetry reveals sinus mechanism. 02/10/2024 Patient examined this morning at the bedside. Patient continues to report shortness of breath. She continues to have a cough. She denies any chest discomfort at the time of examination. She remains on a Lasix drip at 5 mg an hour. Creatinine today is 3.44. Hemoglobin 7.2. 02/11/2024 Patient examined this morning at the bedside. Patient reports that she slept well overnight. She currently denies any chest pain or pressure. She reports improvement in her shortness of breath and also with her cough. Renal function worsened today at 3.71. She remains on IV Lasix at 10 mg an hour. 02/11 Patient seen and examined. Patient still minutes to significant shortness breath mainly with exertion. She occasionally has some chest tightness however not clearly associated with exertion and more feels like she cannot take a deep breath in. Creatinine stable at 3.8. She is receiving 1 unit of packed red blood cell for hemoglobin 6.7. Remains on IV diuretics. 02/12 Patient is seen today in follow-up. She states she may feel a little bit better after blood transfusion but continues to feel tired, shortness of breath have some chest pain with exertion. Blood pressure 125/80, heart rate between 72 and 91, pulse ox 95% on room air. Repeat blood work reveals hemoglobin 7.4. BUN 83 creatinine 2.6. Discussed option of stress test in the next 1 to 2 days and patient is agreeable for this. PHYSICAL EXAM: VITAL SIGNS: Reviewed. GENERAL: Well-developed in no acute distress. HEENT: Head is normocephalic. Pupils are equal, round. Sclerae anicteric. Mucous membranes of the mouth are moist. Neck supple. No JVD or thyromegaly LUNGS: Respirations even and unlabored. Lungs essentially clear to auscultation bilaterally. HEART: Regular rate and rhythm. S1 and S2 heard. ABDOMEN: Soft. Nondistended. Nontender. EXTREMITIES: Normal range of motion. No clubbing or cyanosis. Peripheral pulses intact. 2+ bilateral lower extremity edema NEUROLOGIC: Awake and alert. Oriented x 3. ASSESSMENT: Febrile illness Shortness of breath Acute heart failure with reduced EF, 20 to 25% New onset cardiomyopathy, ischemic versus nonischemic Non-STEMI Left bundle branch block Acute kidney injury, renal function was fairly normal in 2021 Anemia, acute anemia versus anemia of chronic disease due to renal failure, duration of anemia/EDWINA unknown History of hypertension History of CVA x 2 Diabetes Hypothyroidism Former nicotine dependence Minimally elevated LFTs PLAN: Continue current cardiac medications Nephrology following. Continue IV Lasix infusion per nephrology. Daily weights, accurate intake and output, and monitoring of kidney function Patient is not a candidate for invasive cardiac workup at this time secondary to anemia and kidney function May consider stress test in the next 1 to 2 days. Will reassess in the morning. Further recommendations pending patient course Nurse practitioner note has been reviewed, I agree with documented findings and plan of care. Patient was seen and examined. Objective - Vital Signs Vital signs: Vital Signs Temp 97.7 F 02/13/24 12:00 Pulse 84 02/13/24 12:00 Resp 25 H 02/13/24 12:00 BP 118/71 02/13/24 12:00 Pulse Ox 95 02/13/24 12:00 FiO2 Intake & Output 02/12/24 02/13/24 02/13/24 18:59 06:59 18:59 Intake Total 890.167 31.5 220 Output Total 500 500 400 Balance 390.167 -468.5 -180 Intake: Intake, IV Titration 100.167 31.5 Amount Furosemide 100 mg In 100.167 31.5 Sodium Chloride 0.9% 90 ml @ 10 MG/HR 10 mls/hr IV .Q10H [facility] Rx#: [id number] Oral 480 220 Blood Product 310 Rc As-1 Unit 310 [id number] Output: Urine 500 500 400 Other: Voiding Method Indwelling Catheter Indwelling Catheter - Labs CBC & Chem 7: 02/13/24 09:10 02/13/24 09:10 Labs: Abnormal Lab Results - Last 24 Hours (Table) 02/12/24 02/12/24 02/12/24 Range/Units 13:00 16:40 21:46 RBC (3.80-5.40) m/uL Hgb (11.4-16.0) gm/dL Hct (34.0-46.0) % Sodium (137-145) mmol/L Carbon Dioxide (22-30) mmol/L BUN (7-17) mg/dL Creatinine (0.52-1.04) mg/dL Glucose (74-99) mg/dL POC Glucose (mg/dL) 289 H 214 H (70-110) mg/dL Calcium (8.4-10.2) mg/dL Crossmatch See Detail 02/13/24 02/13/24 02/13/24 Range/Units 03:41 06:17 08:23 RBC (3.80-5.40) m/uL Hgb (11.4-16.0) gm/dL Hct (34.0-46.0) % Sodium (137-145) mmol/L Carbon Dioxide (22-30) mmol/L BUN (7-17) mg/dL Creatinine (0.52-1.04) mg/dL Glucose (74-99) mg/dL POC Glucose (mg/dL) 206 H 251 H 182 H (70-110) mg/dL Calcium (8.4-10.2) mg/dL Crossmatch 02/13/24 02/13/24 02/13/24 Range/Units 09:10 09:10 11:29 RBC 2.40 L (3.80-5.40) m/uL Hgb 7.4 L (11.4-16.0) gm/dL Hct 22.4 L (34.0-46.0) % Sodium 133 L (137-145) mmol/L Carbon Dioxide 21 L (22-30) mmol/L BUN 83 H (7-17) mg/dL Creatinine 3.60 H (0.52-1.04) mg/dL Glucose 154 H (74-99) mg/dL POC Glucose (mg/dL) 156 H (70-110) mg/dL Calcium 8.0 L (8.4-10.2) mg/dL Crossmatch Microbiology - Last 24 Hours (Table) 02/07/24 10:01 Blood Culture - Final Blood
[2024-02-13 16:39] LABS: Glucose,Whole Blood 164 mg/dL (70-110)
[2024-02-13 18:19] LABS: Glucose,Whole Blood 203 mg/dL (70-110)
[2024-02-13 20:06] LABS: Glucose,Whole Blood 149 mg/dL (70-110)
--- NOTE | 2024-02-13 21:32 | P.PN ---
Subjective Progress Note Date: 02/13/24 58 years old female with past medical history of multiple medical problems as below She has been incarcerated for 52 days, there is officer at bedside. Patient presents because of shortness of breath and exertional dyspnea has for the last 2 days, she states she hears herself wheezing when she lies down. Currently she is breathing quietly. She is complaining for mild chest pain on the left side, nonradiating nonspecific, feels much better now and very mild. She follow-up with her legal officer Dr. Donal Herrera and postal service window clerk Dr. Babb who examined her about 2 months ago where she has some mild ulcer In the bottom of her right total This morning patient has low-grade fever 100.2 She is also mildly tachypneic around 22 She is saturating 93% on 2 L oxygen via nasal cannula Labs reviewed showing hemoglobin of 7.7, rest of CBC is unremarkable BMP liver enzymes not elevated. INR 0.9. Lactic 0.9 proBNP is elevated 25 100 EKG showing sinus rhythm at [address]-T changes, no left bundle branch block 02/08/2024 Patient lying in bed, relaxed however she has mild tachypnea, mild distress She has significant coughing but she denies chest pain. Normal palpitation but patient has bilateral leg swelling No abdominal pain, no suprapubic pain or tenderness. But she has increased frequency of urination, last night she peed 4 times which is unusual for her. Urine analysis suspicious for infection and patient had low-grade temperature of 100.2 and she was started on Rocephin pending urine culture. Bladder scan was checked it was -101-150. She has about 900-1000 mL of urine output overnight.. Glucose improved after we stopped her Levemir 8 units twice daily, recommend to start it as 5 units daily. Continue with sliding scale. Also because of her tachypnea we will going to repeat chest x-ray. Renal function has worsened to 3.3 in the close were consulted. No evidence of hypotension. No NSAIDs Hemoglobin stable at 7.1, no need for endoscopy by a GI team. Workup so far showing anemia of chronic disease, B12 and folate is pending. Patient continued on heparin drip for her non-STEMI. We are going to check occult blood in the stool Patient currently on IV Lasix 40 mg 3 times a day. We lowered to twice a day given worsening renal function. Further recommendation pending further workup like chest x-ray 02/09/2024 Patient still complaining of shortness of breath but improving. Leg swelling is coming down No chest pain. Patient remains on Lasix drip. Heparin drip was discontinued Her creatinine was elevated yesterday, she has evidence of urine retention and Saldaña catheter was placed IV Lasix was switched to Lasix drip 5 mg/h. Repeat 2.2 L yesterday Saldaña catheter in place She is currently also on aspirin. Urine culture is negative she remains on ceftriaxone. Pneumonia also not entirely excluded. Check pro- Calcitonin tomorrow and repeat chest x-ray tomorrow General ultrasound at bedside 02/10/24: Patient seen and evaluated at bedside, blood work reviewed WBC 6.1 hemoglobin 7.2, serum chemistry sodium 129 BUN 69 creatinine 3.44 magnesium 1.9 procalcitonin 1.69, chest x-ray does show diffuse interstitial opacity, patient denies blood in stool : Patient seen and evaluated at bedside. Serum chemistry reviewed creatinine 3.71 sodium 131, magnesium 1.8 input from nephrology. Patient remains on Lasix drip. 02/12/24: Patient seen and evaluated at bedside, blood work reviewed, blood glucose ranging between 1 50-300, mealtime insulin adjusted. CBC shows hemoglobin of 6.7, magnesium of 1 point patient remains on 3 L of oxygen. Patient does complain of shortness of breath 02/13/2024 Patient is lying in the bed. Awake alert and oriented. Currently requiring oxygen at 3 L via nasal cannula. Breathing status is slightly better than yesterday. Otherwise patient is being continued on Lasix drip. No complaints of nausea or vomiting. No fever no chills. Laboratory data showed WBC 6.2 hemoglobin 7.4 and platelets 377 BUN 83 and creatinine 3.60 and blood sugar 154. Calcium 8.0. Patient is on antibiotics ceftriaxone 1 g daily. Pulmonary, cardiology and nephrology is on board. GENERAL: The patient is alert and oriented x3, not in any acute distress. Ill appearance, pale appearing HEENT: Pupils are round and equally reacting to light. EOMI. Normocephalic, atraumatic. No pharyngeal erythema. No thyromegaly. CARDIOVASCULAR: S1 and S2 present. No murmurs, rubs, or gallops. PULMONARY: Decreased breath sounds bilaterally ABDOMEN: Soft, nontender, nondistended, normoactive bowel sounds. No palpable organomegaly. Saldaña catheter in place MUSCULOSKELETAL: No joint swelling or deformity. EXTREMITIES: No cyanosis, clubbing, 1+ bilateral pitting leg edema. NEUROLOGICAL: Gross neurological examination did not reveal any focal deficits. Assessment: Acute congestive heart failure with systolic dysfunction ejection fraction of 20-25 % New onset cardiomyopathy. Ischemic versus nonischemic. Acute hypoxemic respiratory failure multifactorial CHF, multifocal pneumonia Multifocal pneumonia Non-ST elevated MT Acute kidney injury due to ATN secondary to cardiorenal. Patient is nonoliguric Acute on chronic anemia of chronic disease Acute urinary tract infection, urine culture showing skin or genital kwesi Chronic kidney disease stage II with acute kidney injury Urinary retention status post Saldaña catheter placement Diabetes mellitus type 2 Plan: In regards to hypoxemic respiratory failure, CHF exacerbation, continue patient on IV Lasix drip, continue to monitor intake and output continue with f luid restriction. Regards to multifocal pneumonia procalcitonin elevated continue IV Rocephin day In regards to elevated troponin, continue current management medically, not a candidate for cardiac catheterization secondary to renal failure and anemia. stress test in the next 1 to 2 days as per cardiology. In regards to diabetes mellitus Accu-Cheks ACHS continue patient on correctional insulin, NovoLog and Levemir In regards to anemia, continue to monitor H&H transfuse if hemoglobin less than 7, 1 unit of packed RBC ordered, fecal occult blood test ordered. Continue to titrate oxygen to room air. Objective - Vital Signs Vital signs: Vital Signs Temp 96.7 F L 02/13/24 08:00 Pulse 80 02/13/24 09:19 Resp 16 02/13/24 08:00 BP 118/55 02/13/24 08:00 Pulse Ox 94 L 02/13/24 08:00 FiO2 Intake & Output 02/12/24 02/13/24 02/13/24 18:59 06:59 18:59 Intake Total 890.167 31.5 220 Output Total 500 500 400 Balance 390.167 -468.5 -180 Intake: Intake, IV Titration 100.167 31.5 Amount Furosemide 100 mg In 100.167 31.5 Sodium Chloride 0.9% 90 ml @ 10 MG/HR 10 mls/hr IV .Q10H [facility] Rx#: [id number] Oral 480 220 Blood Product 310 Rc As-1 Unit 310 [id number] Output: Urine 500 500 400 Other: Voiding Method Indwelling Catheter Indwelling Catheter - Labs CBC & Chem 7: 02/13/24 09:10 02/13/24 09:10 Labs: Abnormal Lab Results - Last 24 Hours (Table) 02/12/24 02/12/24 02/12/24 Range/Units 10:43 10:43 11:42 RBC 2.13 L (3.80-5.40) m/uL Hgb 6.7 L* (11.4-16.0) gm/dL Hct 20.2 L (34.0-46.0) % Sodium 131 L (137-145) mmol/L Carbon Dioxide 21 L (22-30) mmol/L BUN 80 H (7-17) mg/dL Creatinine 3.89 H (0.52-1.04) mg/dL Glucose 286 H (74-99) mg/dL POC Glucose (mg/dL) 361 H (70-110) mg/dL Calcium 7.5 L (8.4-10.2) mg/dL Crossmatch 02/12/24 02/12/24 02/12/24 Range/Units 13:00 13:12 16:40 RBC (3.80-5.40) m/uL Hgb (11.4-16.0) gm/dL Hct (34.0-46.0) % Sodium (137-145) mmol/L Carbon Dioxide (22-30) mmol/L BUN (7-17) mg/dL Creatinine (0.52-1.04) mg/dL Glucose (74-99) mg/dL POC Glucose (mg/dL) 355 H 289 H (70-110) mg/dL Calcium (8.4-10.2) mg/dL Crossmatch See Detail 02/12/24 02/13/24 02/13/24 Range/Units 21:46 03:41 06:17 RBC (3.80-5.40) m/uL Hgb (11.4-16.0) gm/dL Hct (34.0-46.0) % Sodium (137-145) mmol/L Carbon Dioxide (22-30) mmol/L BUN (7-17) mg/dL Creatinine (0.52-1.04) mg/dL Glucose (74-99) mg/dL POC Glucose (mg/dL) 214 H 206 H 251 H (70-110) mg/dL Calcium (8.4-10.2) mg/dL Crossmatch 02/13/24 02/13/24 02/13/24 Range/Units 08:23 09:10 09:10 RBC 2.40 L (3.80-5.40) m/uL Hgb 7.4 L (11.4-16.0) gm/dL Hct 22.4 L (34.0-46.0) % Sodium 133 L (137-145) mmol/L Carbon Dioxide 21 L (22-30) mmol/L BUN 83 H (7-17) mg/dL Creatinine 3.60 H (0.52-1.04) mg/dL Glucose 154 H (74-99) mg/dL POC Glucose (mg/dL) 182 H (70-110) mg/dL Calcium 8.0 L (8.4-10.2) mg/dL Crossmatch Microbiology - Last 24 Hours (Table) 02/07/24 10:01 Blood Culture - Final Blood Assessment and Plan Time with Patient: Greater than 30
[2024-02-14] MEDS: ONDANSETRON 4 MG/2 ML VIAL IVP STA (01:43)
[2024-02-14 06:14] LABS: Glucose,Whole Blood 235 mg/dL (70-110)
--- NOTE | 2024-02-14 07:38 | XR ---
EXAMINATION TYPE: XR chest 1V DATE OF EXAM: 02/14/2024 COMPARISON: 02/12/2024 HISTORY: Shortness of breath TECHNIQUE: Single frontal view of the chest is obtained. FINDINGS: Diffuse interstitial opacity and bibasilar opacities are unchanged compared to previous. T he pattern suggests CHF. Underlying pneumonia not excluded. Loop recorder device overlying the left h emithorax. There is no pneumothorax. The osseous structures and soft tissues are stable. IMPRESSION: Diffuse bilateral infiltrate with small effusion or early CHF or edema. Otherwise conside r pneumonia.
[2024-02-14] MEDS: MAG HYDROX/AL HYDROX/SIMETH 30 ML CUP PO STA (11:00)
[2024-02-14 11:36] LABS: Glucose,Whole Blood 300 mg/dL (70-110)
--- NOTE | 2024-02-14 12:09 | P.PN ---
Subjective Patient is seen in follow-up for acute kidney injury. Renal function stable. Creatinine 3.6 yesterday. Currently on Lasix drip. Has Saldaña catheter for urinary retention. Nonoliguric. Vital signs are stable. General: No acute distress. HEENT: Head exam is unremarkable. On nasal cannula. LUNGS: No audible rhonchi or wheezes. HEART: Rate and Rhythm are regular. ABDOMEN: Nontender. EXTREMITITES: No edema. Objective - Vital Signs Vital signs: Vital Signs Temp 98.7 F 02/14/24 08:00 Pulse 72 02/14/24 09:15 Resp 16 02/14/24 08:00 BP 119/75 02/14/24 08:00 Pulse Ox 97 02/14/24 08:00 FiO2 Intake & Output 02/13/24 02/14/24 02/14/24 18:59 06:59 18:59 Intake Total 931.083 85 100 Output Total 1000 700 400 Balance -68.917 -615 -300 Weight 77 kg Intake: Intake, IV Titration 71.083 85 100 Amount Furosemide 100 mg In 71.083 85 100 Sodium Chloride 0.9% 90 ml @ 10 MG/HR 10 mls/hr IV .Q10H [facility] Rx#: [id number] Oral 860 Output: Urine 1000 700 400 Other: Voiding Method Indwelling Catheter Indwelling Catheter # Bowel Movements 1 - Labs CBC & Chem 7: 02/13/24 09:10 02/13/24 09:10 Labs: Abnormal Lab Results - Last 24 Hours (Table) 02/13/24 02/13/24 02/13/24 Range/Units 16:35 18:18 20:04 POC Glucose (mg/dL) 164 H 203 H 149 H (70-110) mg/dL 02/14/24 02/14/24 Range/Units 06:13 11:34 POC Glucose (mg/dL) 235 H 300 H (70-110) mg/dL Assessment and Plan Plan: Assessment: 1. Acute kidney injury secondary to ATN secondary to cardiorenal syndrome. Creatinine fairly stable at 3.6 yesterday. Creatinine as low as 0.98 dated March 01, 2022. No hydronephrosis noted on kidney ultrasound. Serologies negative. 2. Acute on chronic systolic CHF with ejection fraction of 20 to 25% with moderate to severe mitral regurgitation and mild pulmonary hypertension. 3. Volume overload. Improving with diuresis. 4. Anemia. Iron deficiency noted. Status post IV iron. On Aranesp. GI following. Status post blood transfusion this admission. Also received IV DDAVP. 5. Metabolic acidosis secondary to acute kidney injury. On oral bicarb. Stable. 6. Hypervolemic hyponatremia. Also component of hypertonicity from hyperglycemia. Better. 7. Urinary retention status post Saldaña catheter placement. On Flomax. Plan: Maintain Lasix drip. Strict I's and O's. Maintain 1200 cc fluid restriction. Blood glucose control. Continue to monitor renal function and urine output. Morning labs pending.
[2024-02-14 12:19] LABS: African American GFR (CKD) 15 (>60 ml/min/1.73 sqM); Anion Gap 9 mmol/L; Blood Urea Nitrogen 87 mg/dL (7-17); Calcium 8.3 mg/dL (8.4-10.2); Carbon Dioxide 20 mmol/L (22-30); Chloride 106 mmol/L (98-107); Glucose 258 mg/dL (74-99); Magnesium 2.1 mg/dL (1.6-2.3); Non-African American GFR(CKD) 13 (>60 ml/min/1.73 sqM); Potassium 4.6 mmol/L (3.5-5.1); Sodium 135 mmol/L (137-145)
--- NOTE | 2024-02-14 14:26 | P.PN ---
Subjective Progress Note Date: 02/14/24 Patient is a 58-year-old white female with past medical history significant for COPD, chronic ongoing tobacco dependence, CVA/TIA, diabetes mellitus, hyperlipidemia, hypertension, hypothyroidism, fibromyalgia, GERD, among other things. Patient presented back on 02/06/2024 from halfway with chief complaint of increased lower extremity swelling. She states that she first noted the swelling back in December,. It is progressively worsened, she states she has gained approximately 20 pounds over the last 2 months. Approximately 10 days ago she was awoken at night with substernal chest pain. Nonradiating. With associated shortness of breath and sweating. Lasted up to 15 minutes. She is also had a nonproductive cough. She was noted to be febrile this admission. She is empirically covered on antibiotics. On arrival to the emergency room, she was noted to have elevated troponins of 1.29, 1.76, and 2.2. EKG showed normal sinus rhythm with left bundle branch block, without any other acute isc hemic changes. No previous EKG for comparison. She was started on heparin infusion per protocol. She also was on a Nitropaste. Echocardiogram showed a severely impaired left ventricular ejection fraction of 20 to 25%, and moderate to severe mitral regurgitation. Today, she was started on a Lasix infusion at 5 mg/h. Heparin infusion was stopped as the patient is anemic. Patient denies any acute blood loss. No vaginal bleeding. No juan blood in stool. No melena. No nausea or vomiting or hematic emesis. Last colonoscopy was reportedly around 10 years ago. She is currently lying in bed, on 2 L/min nasal cannula. Chest x-ray on admission shows diffuse interstitial edema as well as bilateral consolidation and small effusions. Findings consistent with congestive heart failure. NT proBNP was elevated 25,000. Patient not making much urine despite Lasix infusion. Patient did have 1 episode of fever during her admission with a Tmax of 100.2 F. She was empirically she was empirically placed on Rocephin. Negative for influenza, RSV, COVID. Most recent BMP from today: Sodium 130, potassium 5.1, chloride 104, serum bicarb down to 17, BUN 63, creatinine worsening and 3.34, glucose 229. LFTs mildly elevated. Hepatitis panel nonreactive. Overall, hemodynamically stable. On 02/08/2024, seen the patient for a follow-up. The patient is currently on 3 L of oxygen by nasal cannula with a pulse ox of 94%. She should be able to wean down. She is on Lasix drip at 5 mg an hour and the patient is producing adequate amount of urine output. Her fluid balance is negative. As mentioned, the patient is post non-ST segment ovation myocardial infarction the patient is being seen by cardiology. The patient has severe cardiomyopathy with impaired left ventricular ejection fraction. Her blood work from today shows a BUN of 66 with a creatinine of 3.41 and this is consistent with an acute on chronic kidney injury. Sodium levels at 129, potassium is at 4.4 with a WBC count of 6.3 and a hemoglobin of 7.4. The patient is on IV Rocephin as an empiric antibiotic coverage. She is currently afebrile. The patient is being seen by cardiology. The patient will be kept on IV Lasix. Not a candidate for any invasive cardiac workup due to her acute on top of chronic kidney injury at this point in time. Her comorbidities are multiple. Unsure if she does have underlying coronary artery disease. Nevertheless, she has previous history of CVA, diabetes mellitus type 2, hypothyroidism and CHF. She was in halfway for being arrested due to possession of amphetamines. Vasculitis workup was negative including a negative EDSON and a negative P and C ANCA. Hepatitis profile was also negative. On 02/10/2024, the patient is being seen for a follow-up. No new complaints. No significant shortness of breath at rest. Remains on Lasix drip. Producing adequate amount of urine output. Blood work from today was noticed that the patient has a white cell count of 6 with a hemoglobin of 7.2 and a PET scan at 360. BUN 69 with a creatinine of 3.4 and a sodium levels at 129. The patient is being seen by cardiology and nephrology addition. She remains on Lasix drip which will be increased up to 10 mg an hour. Not a candidate for further cardiac catheterization based on underlying renal dysfunction. 02/11/2024, the patient is being seen for a follow-up. No new complaints. Monitor for improvement in her condition. She remains on 2 L of oxygen by nasal cannula. Fluid balance is -90 cc over the past 24 hours. Suboptimal response to diuretics and the patient remains on Lasix at 10 mg an hour. BUN 71 with a creatinine of 3.7, slightly worse compared to yesterday. Sodium is at 131. The patient denies having any chest pain. No significant hypotension. Remains on aspirin. Remains on metoprolol 25 mg p.o. twice a day. Cardiology on the case. She has significant cardiomyopathy. She is post acute non-STEMI. Not a candidate for cardiac catheterization due to renal impairment. The patient is seen today February 12, 2024 in follow-up on the selective care unit. She is currently sitting up in bed. Awake and alert in no acute distress. She is maintaining O2 saturation in the 90s on 3 L nasal cannula. She is afebrile. Hemodynamically stable. Today's chest x-ray reviewed reveals diffuse bilateral infiltrates with small effusion or early congestive heart failure. Hemoglobin 6.7. 1 unit of packed blood cells have been ordered. Platelets 362. White cou nt 6.1. Sodium 131. Potassium 4.2. Bicarb 21. BUN 80. Creatinine 3.89. Glucose 286. She remains on. Antibiotics in the form of ceftriaxone. Remains on a Lasix drip at 5 mg an hour. Currently in a -178 mL balance. The patient is seen today February 13, 2024 in follow-up on the selective care unit. She is awake and alert in no acute distress. Sitting up in bed. Blood and urine cultures revealed no growth. White count 6.2. Hemoglobin 7.4. Platelets 01/05/1978. Sodium 133. Potassium 3.9. Bicarb 21. BUN 83. Creatinine 3.60. Glucose 154. She remains on a Lasix drip currently at 5 mg/h. She remains on a heparin drip. Receiving sodium bicarb tablets. Continued on bronchodilators. Continued on antibiotics in the form of ceftriaxone. She is currently in a negative balance. Voided 1 L today. The patient is seen today February 14, 2024 in follow-up on the selective care unit. She is currently sitting up in bed. Awake and alert in no acute distress. She is maintaining good O2 saturations in the 90s on 3 L/min per nasal cannula. She is afebrile. Hemodynamically stable. Follow-up chest x-ray continues to show diffuse bilateral infiltrate with small effusions. She is status post 1 unit of packed red blood cells this admission. Last hemoglobin 7.7. Sodium 135. Potassium 4.6. Bicarb 20. BUN 87. Creatinine 3.55. Glucose 358. She is continued on bronchodilators. Antibiotics in form of ceftriaxone. She remains on a Lasix drip at 10 mg/h. Receiving sodium bicarb tablets. Currently -688 mL balance. Nephrology is following. Objective - Vital Signs Vital signs: Vital Signs Temp 97.1 F L 02/14/24 12:00 Pulse 80 02/14/24 12:52 Resp 16 02/14/24 13:17 BP 129/51 02/14/24 12:00 Pulse Ox 98 02/14/24 12:00 FiO2 Intake & Output 02/13/24 02/14/24 02/14/24 18:59 06:59 18:59 Intake Total 931.083 85 566 Output Total 1000 700 400 Balance -68.917 -615 166 Weight 77 kg Intake: Intake, IV Titration 71.083 85 100 Amount Furosemide 100 mg In 71.083 85 100 Sodium Chloride 0.9% 90 ml @ 10 MG/HR 10 mls/hr IV .Q[facility]H [facility] Rx#: [id number] Oral 860 466 Output: Urine 1000 700 400 Other: Voiding Method Indwelling Catheter Indwelling Catheter Indwelling Catheter # Bowel Movements 1 - Exam GENERAL EXAM: Alert, 58-year-old female, on 3 L nasal cannula, in no apparent distress. HEAD: Normocephalic and atraumatic EYES: Normal reaction of pupils, equal size. NOSE: Clear with pink turbinates. THROAT: No erythema or exudates. NECK: No masses, no JVD. CHEST: No chest wall deformity. LUNGS: Equal air entry with bibasilar crackles and mild and expiratory wheezes heard bilaterally. CVS: S1 and S2 normal with no audible murmur, regular rhythm. No extra heart sounds ABDOMEN: No hepatosplenomegaly, active bowel sounds, no guarding or rigidity. SPINE: No scoliosis or deformity SKIN: No rashes CENTRAL NERVOUS SYSTEM: No focal deficits, tone is normal in all 4 extremities. EXTREMITIES: There is lower extremity pitting edema, 1-2+ bilaterally. No c lubbing, or cyanosis. Peripheral pulses are intact. - Labs CBC & Chem 7: 02/13/24 09:10 02/14/24 09:48 Labs: Abnormal Lab Results - Last 24 Hours (Table) 05/05/0102/13/24 02/13/24 Range/Units 16:35 18:18 20:04 Sodium (137-145) mmol/L Carbon Dioxide (22-30) mmol/L BUN (7-17) mg/dL Creatinine (0.52-1.04) mg/dL Glucose (74-99) mg/dL POC Glucose (mg/dL) 164 H 203 H 149 H (70-110) mg/dL Calcium (8.4-10.2) mg/dL 02/14/24 02/14/24 02/14/24 Range/Units 06:13 09:48 11:34 Sodium 135 L (137-145) mmol/L Carbon Dioxide 20 L (22-30) mmol/L BUN 87 H (7-17) mg/dL Creatinine 3.55 H (0.52-1.04) mg/dL Glucose 258 H (74-99) mg/dL POC Glucose (mg/dL) 235 H 300 H (70-110) mg/dL Calcium 8.3 L (8.4-10.2) mg/dL Assessment and Plan Assessment: Acute non-ST elevation NH, patient was initially placed on heparin infusion per protocol, which is currently discontinued. Denies any further chest pain. Not a candidate for further cardiac intervention at this point due to her underlying renal failure. Acute hypoxemic respiratory failure, currently on 3 L/min nasal cannula, seconda ry to exacerbation of systolic congestive heart failure and above, Chest x-ray on admission shows diffuse interstitial edema as well as bilateral consolidation and small effusions. Findings consistent with congestive heart failure, however, superimposed community-acquired bibasilar pneumonia is not excluded. Ischemic cardiomyopathy with an estimated left ventricular ejection fraction severely impaired at 20 to 25% as well as moderate to severe mitral valve regurgitation, currently on Lasix infusion at 5 mg/h, responding to diuresis with Lasix drip. Negative fluid balance. Severe mitral valve regurgitation Acute febrile illness, recovered Normocytic normochromic anemia, current hemoglobin 7.4, received 1 unit of packed red blood cell Acute kidney injury, likely cardiorenal, worsening creatinine, the patient is producing adequate amount of urine output Metabolic non-anion gap acidosis, secondary to above Chronic obstructive pulmonary disease, stable Diabetes mellitus type 1 History of hyperlipidemia History of hypertension History of CVA/TIA History of hypothyroidism History of fibromyalgia History of GERD Mildly elevated LFTs, hepatitis panel nonreactive Former tobacco smoker, 1/2 pack/day or approximately 15-year pack history Plan: The patient was seen and evaluated Labs and medications reviewed Remains stable on 3 L nasal Continue Lasix drip Continue 1200 ml fluid restriction Nephrology is following We will continue to follow I have personally seen and examined the patient, performed the documentation and the assessment and plan as written. Number of minutes spent on the visit: 10.
--- NOTE | 2024-02-14 15:17 | P.PN ---
Subjective Progress Note Date: 02/14/24 HISTORY OF PRESENT ILLNESS: This is a 58-year-old female with a past medical history significant for former nicotine dependence, hypertension, CVA, hypothyroidism, and diabetes. Patient follows in the office with Dr. Saunders and was last seen in May 2023. We have been asked to see the patient in consultation for non-STEMI and CHF. Patient examined at the bedside in the emergency room. Patient is currently incarcerated and there is a drugless physician at the bedside. Patient states she has been feeling short of breath and feeling weak. She states this started about 2 days ago. She states that she was in court and afterwards they had to use a wheelchair to get her back into the vehicle as she was too weak to walk. She also reports feeling dizzy and having pounding in her chest. She reports a sli ght cough. She denied having a fever previously to her knowledge. However patient was febrile this morning with a temperature of 100.2. She also reports lower extremity edema that started in the middle of December. She reports nausea yesterday that was relieved with Zofran. Patient was found to be anemic on admission with a hemoglobin of 7.7. Repeat 7.1. Last hemoglobin was back in 2021 but was normal at 12.3. The patient denies a history of anemia. Unsure if this anemia is new or has been present for a while as her last blood work was not since 2021. She denies any blood in her stool or urine. She does report decreased urine output. Patient was also found to have acute kidney injury with a creatinine of 2.96. Back in 2021, patient's kidney function was within normal limits. Patient was also found to have elevated troponins and was started on IV heparin. She denied having any chest pain or pressure. Patient is a former cigarette smoker and has not smoked in 55 days since being in halfway. She denies alcohol abuse many years ago but nothing recently. She denies drug use in cluding marijuana. DIAGNOSTICS: - EKG reveals sinus mechanism with left bundle branch block. - Chest xray consolation of findings favor CHF over pneumonia. Correlate clinically. Underlying COPD. Loop recorder device seen. Bilateral consolidation and small effusion with diffuse interstitial pattern.. - Laboratory data: WBC 6.2. Hemoglobin 7.1. Platelet count 300. Sodium 133. Potassium 4.9. BUN 56. Creatinine 2.96. AST 55. ALT 35. proBNP 25,100. Troponin 1.290. 1.760. 2.210. - Current home cardiac medications include Lipitor 20 mg at night. - Most recent echocardiogram obtained in February 2022 revealed ejection fraction 55 to 60%, mild MR, mild TR - Patient underwent dobutamine stress test in March 2023 at the office which was negative for ischemia 02/08/2024 Patient examined this morning at the bedside. Patient states her shortness of breath has improved today. She complains of mild chest discomfort when she feels short of breath. She states the chest pain is worse with deep inspiration. Her lower extremity edema has improved from yesterday. She has been transition to IV Lasix drip per nephrology. Echocardiogram completed revealing ejection fraction 20 to 25%, mild pulm hypertension, moderate to severe mitral regurgitation, mild aortic regurgitation, trace to mild tricuspid regurgitation and small pericardial effusion. 02/09/2024 Patient examined this morning at the bedside. Patient continues to report shortness of breath at the time of examination. She reports that she developed a cough also today. She reports chest discomfort that is worse with deep insp iration. She remains on a Lasix drip at 5 mg an hour. Creatinine 3.41. Hemoglobin 7.4. Blood pressure is stable. Telemetry reveals sinus mechanism. 02/10/2024 Patient examined this morning at the bedside. Patient continues to report shortness of breath. She continues to have a cough. She denies any chest discomfort at the time of examination. She remains on a Lasix drip at 5 mg an hour. Creatinine today is 3.44. Hemoglobin 7.2. 02/11/2024 Patient examined this morning at the bedside. Patient reports that she slept well overnight. She currently denies any chest pain or pressure. She reports improvement in her shortness of breath and also with her cough. Renal function worsened today at 3.71. She remains on IV Lasix at 10 mg an hour. 02/11 Patient seen and examined. Patient still minutes to significant shortness breath mainly with exertion. She occasionally has some chest tightness however not clearly associated with exertion and more feels like she cannot take a deep breath in. Creatinine stable at 3.8. She is receiving 1 unit of packed red blood cell for hemoglobin 6.7. Remains on IV diuretics. 02/12 Patient is seen today in follow-up. She states she may feel a little bit better after blood transfusion but continues to feel tired, shortness of breath have some chest pain with exertion. Blood pressure 125/80, heart rate between 72 and 91, pulse ox 95% on room air. Repeat blood work reveals hemoglobin 7.4. BUN 83 creatinine 2.6. Discussed option of stress test in the next 1 to 2 days and patient is agreeable for this. 02/13 Patient complains of feeling tired, upset stomach. She has shortness of breath with minimal activity. She had an episode of chest pain last night but none now. Renal function is worsening with BUN of 87 creatinine 3.55. Sodium 135, potassium 4.6. PHYSICAL EXAM: VITAL SIGNS: Reviewed. GENERAL: Well-developed in no acute distress. HEENT: Head is normocephalic. Pupils are equal, round. Sclerae anicteric. Mucous membranes of the mouth are moist. Neck supple. No JVD or thyromegaly LUNGS: Respirations even and unlabored. Lungs essentially clear to auscultation bilaterally. HEART: Regular rate and rhythm. S1 and S2 heard. ABDOMEN: Soft. Nondistended. Nontender. EXTREMITIES: Normal range of motion. No clubbing or cyanosis. Peripheral pulses intact. 2+ bilateral lower extremity edema NEUROLOGIC: Awake and alert. Oriented x 3. ASSESSMENT: Febrile illness Shortness of breath Acute heart failure with reduced EF, 20 to 25% New onset cardiomyopathy, ischemic versus nonischemic Non-STEMI Left bundle branch block Acute kidney injury, renal function was fairly normal in 2021 Anemia, acute anemia versus anemia of chronic disease due to renal failure, duration of anemia/EDWINA unknown History of hypertension History of CVA x 2 Diabetes Hypothyroidism Former nicotine dependence Minimally elevated LFTs PLAN: Continue current cardiac medications Nephrology following. Continue IV Lasix infusion per nephrology. Daily weights, accurate intake and output, and monitoring of kidney function Patient is not a candidate for invasive cardiac workup at this time secondary to anemia and kidney function Patient will be scheduled for Lexiscan stress test tomorrow Further recommendations pending patient course Nurse practitioner note has been reviewed, I agree with documented findings and plan of care. Patient was seen and examined. Objective - Vital Signs Vital signs: Vital Signs Temp 97.1 F L 02/14/24 12:00 Pulse 80 02/14/24 12:52 Resp 16 02/14/24 13:17 BP 129/51 02/14/24 12:00 Pulse Ox 98 02/14/24 12:00 FiO2 Intake & Output 02/13/24 02/14/24 02/14/24 18:59 06:59 18:59 Intake Total 931.083 85 566 Output Total 1000 700 400 Balance -68.917 -615 166 Weight 77 kg Intake: Intake, IV Titration 71.083 85 100 Amount Furosemide 100 mg In 71.083 85 100 Sodium Chloride 0.9% 90 ml @ 10 MG/HR 10 mls/hr IV .Q10H [id number] Rx#: [id number] Oral [id number] Output: Urine 1000 700 400 Other: Voiding Method Indwelling Catheter Indwelling Catheter Indwelling Catheter # Bowel Movements 1 - Labs CBC & Chem 7: 02/13/24 09:10 02/14/24 09:48 Labs: Abnormal Lab Results - Last 24 Hours (Table) 02/13/24 02/13/24 02/13/24 Range/Units 16:35 18:18 20:04 Sodium (137-145) mmol/L Carbon Dioxide (22-30) mmol/L BUN (7-17) mg/dL Creatinine (0.52-1.04) mg/dL Glucose (74-99) mg/dL POC Glucose (mg/dL) 164 H 203 H 149 H (70-110) mg/dL Calcium (8.4-10.2) mg/dL 02/14/24 02/14/24 02/14/24 Range/Units 06:13 09:48 11:34 Sodium 135 L (137-145) mmol/L Carbon Dioxide 20 L (22-30) mmol/L BUN 87 H (7-17) mg/dL Creatinine 3.55 H (0.52-1.04) mg/dL Glucose 258 H (74-99) mg/dL POC Glucose (mg/dL) 235 H 300 H (70-110) mg/dL Calcium 8.3 L (8.4-10.2) mg/dL
[2024-02-14 16:26] LABS: Glucose,Whole Blood 222 mg/dL (70-110)
[2024-02-14 19:55] LABS: Glucose,Whole Blood 156 mg/dL (70-110)
[2024-02-15 06:11] LABS: Glucose,Whole Blood 145 mg/dL (70-110)
[2024-02-15] MEDS ORDERED: REGADENOSON 0.4 MG/5 ML SYRINGE IV PRN (07:00)
[2024-02-15] MEDS ORDERED: AMINOPHYLLINE 500 MG/20 ML VIAL IV PRN (07:00)
[2024-02-15] MEDS ORDERED: CAFFEINE CITRATE 60 MG/3 ML VIAL IV PRN (07:00)
[2024-02-15] MEDS ORDERED: REGADENOSON 0.4 MG/5 ML SYRINGE IV ONE (07:00)
--- NOTE | 2024-02-15 09:14 | P.PN ---
Subjective Progress Note Date: 02/14/24 58 years old female with past medical history of multiple medical problems as below She has been incarcerated for 52 days, there is officer at bedside. Patient presents because of shortness of breath and exertional dyspnea has for the last 2 days, she states she hears herself wheezing when she lies down. Currently she is breathing quietly. She is complaining for mild chest pain on the left side, nonradiating nonspecific, feels much better now and very mild. She follow-up with her sodder Dr. Donal Herrera and nut former Dr. Babb who examined her about 2 months ago where she has some mild ulcer In the bottom of her right total This morning patient has low-grade fever 100.2 She is also mildly tachypneic around 22 She is saturating 93% on 2 L oxygen via nasal cannula Labs reviewed showing hemoglobin of 7.7, rest of CBC is unremarkable BMP liver enzymes not elevated. INR 0.9. Lactic 0.9 proBNP is elevated 25 100 EKG showing sinus rhythm at [address]-T changes, no left bundle branch block 02/08/2024 Patient lying in bed, relaxed however she has mild tachypnea, mild distress She has significant coughing but she denies chest pain. Normal palpitation but patient has bilateral leg swelling No abdominal pain, no suprapubic pain or tenderness. But she has increased frequency of urination, last night she peed 4 times which is unusual for her. Urine analysis suspicious for infection and patient had low-grade temperature of 100.2 and she was started on Rocephin pending urine culture. Bladder scan was checked it was -101-150. She has about 900-1000 mL of urine output overnight.. Glucose improved after we stopped her Levemir 8 units twice daily, recommend to start it as 5 units daily. Continue with sliding scale. Also because of her tachypnea we will going to repeat chest x-ray. Renal function has worsened to 3.3 in the close were consulted. No evidence of hypotension. No NSAIDs Hemoglobin stable at 7.1, no need for endoscopy by a GI team. Workup so far showing anemia of chronic disease, B12 and folate is pending. Patient continued on heparin drip for her non-STEMI. We are going to check occult blood in the stool Patient currently on IV Lasix 40 mg 3 times a day. We lowered to twice a day given worsening renal function. Further recommendation pending further workup like chest x-ray 02/09/2024 Patient still complaining of shortness of breath but improving. Leg swelling is coming down No chest pain. Patient remains on Lasix drip. Heparin drip was discontinued Her creatinine was elevated yesterday, she has evidence of urine retention and Saldaña catheter was placed IV Lasix was switched to Lasix drip 5 mg/h. Repeat 2.2 L yesterday Saldaña catheter in place She is currently also on aspirin. Urine culture is negative she remains on ceftriaxone. Pneumonia also not entirely excluded. Check pro- Calcitonin tomorrow and repeat chest x-ray tomorrow General ultrasound at bedside 02/10/24: Patient seen and evaluated at bedside, blood work reviewed WBC 6.1 hemoglobin 7.2, serum chemistry sodium 129 BUN 69 creatinine 3.44 magnesium 1.9 procalcitonin 1.69, chest x-ray does show diffuse interstitial opacity, patient denies blood in stool : Patient seen and evaluated at bedside. Serum chemistry reviewed creatinine 3.71 sodium 131, magnesium 1.8 input from nephrology. Patient remains on Lasix drip. 02/12/24: Patient seen and evaluated at bedside, blood work reviewed, blood glucose ranging between 1 50-300, mealtime insulin adjusted. CBC shows hemoglobin of 6.7, magnesium of 1 point patient remains on 3 L of oxygen. Patient does complain of shortness of breath 02/13/2024 Patient is lying in the bed. Awake alert and oriented. Currently requiring oxygen at 3 L via nasal cannula. Breathing status is slightly better than yesterday. Otherwise patient is being continued on Lasix drip. No complaints of nausea or vomiting. No fever no chills. Laboratory data showed WBC 6.2 hemoglobin 7.4 and platelets 377 BUN 83 and creatinine 3.60 and blood sugar 154. Calcium 8.0. Patient is on antibiotics ceftriaxone 1 g daily. Pulmonary, cardiology and nephrology is on board. 02/14/2024 Patient is currently lying in the bed. Awake alert and oriented x 3. Was complaining of abdominal discomfort mainly epigastric and mid abdomen. No no episodes of vomiting. No complaints of chest pain. Breathing status is fairly stable. Currently requiring 3 L oxygen via nasal cannula. Patient is being continued on Lasix drip. Chest x-ray today showed diffuse bilateral infiltrate with small effusion and early CHF or edema. Otherwise consider pneumonia. Laboratory data showed sodium 135 potassium 4.6 chloride 106 bicarb is 20 BUN is 87 and creatinine 3.55 blood sugar is 258. Cardiology is planning for stress test. Physical examination GENERAL: The patient is alert and oriented x3, not in any acute distress. Ill appearance, pale appearing HEENT: Pupils are round and equally reacting to light. EOMI. Normocephalic, atraumatic. No pharyngeal erythema. No thyromegaly. CARDIOVASCULAR: S1 and S2 present. No murmurs, rubs, or gallops. PULMONARY: Decreased breath sounds bilaterally ABDOMEN: Soft, nontender, nondistended, normoactive bowel sounds. No palpable organomegaly. Saldaña catheter in place MUSCULOSKELETAL: No joint swelling or deformity. EXTREMITIES: No cyanosis, clubbing, 1+ bilateral pitting leg edema. NEUROLOGICAL: Gross neurological examination did not reveal any focal deficits. Assessment: Acute congestive heart failure with systolic dysfunction ejection fraction of 20-25 % New onset cardiomyopathy. Ischemic versus nonischemic. Acute hypoxemic respiratory failure multifactorial CHF, multifocal pneumonia Multifocal pneumonia Non-ST elevated SC Acute kidney injury due to ATN secondary to cardiorenal. Patient is nonoliguric Acute on chronic anemia of chronic disease Acute urinary tract infection, urine culture showing skin or genital kwesi Chronic kidney disease stage II with acute kidney injury Urinary retention status post Saldaña catheter placement Diabetes mellitus type 2 Plan: In regards to hypoxemic respiratory failure, CHF exacerbation, continue patient on IV Lasix drip, continue to monitor intake and output continue with fluid restriction. Regards to multifocal pneumonia procalcitonin elevated continue. Completed ceftriaxone for 5 days on 02/13/2024 In regards to elevated troponin, continue current management medically, not a candidate for cardiac catheterization secondary to renal failure and anemia. stress test in the next 1 to 2 days as per cardiology. In regards to diabetes mellitus Accu-Cheks ACHS continue patient on correct ional insulin, NovoLog and Levemir In regards to anemia, continue to monitor H&H transfuse if hemoglobin less than 7, 1 unit of packed RBC ordered, fecal occult blood test ordered. Continue to titrate oxygen to room air. Objective - Vital Signs Vital signs: Vital Signs Temp 98.7 F 02/14/24 08:00 Pulse 72 02/14/24 09:15 Resp 16 02/14/24 08:00 BP 119/75 02/14/24 08:00 Pulse Ox 97 02/14/24 08:00 FiO2 Intake & Output 02/13/24 02/14/24 02/14/24 18:59 06:59 18:59 Intake Total 931.083 85 100 Output Total 1000 700 400 Balance -68.917 -615 -300 Weight 77 kg Intake: Intake, IV Titration 71.083 85 100 Amount Furosemide 100 mg In 71.083 85 100 Sodium Chloride 0.9% 90 ml @ 10 MG/HR 10 mls/hr IV .Q10H [facility] Rx#: [id number] Oral 860 Output: Urine 1000 700 400 Other: Voiding Method Indwelling Catheter Indwelling Catheter # Bowel Movements 1 - Labs CBC & Chem 7: 02/13/24 09:10 02/14/24 09:48 Labs: Abnormal Lab Results - Last 24 Hours (Table) 02/13/24 02/13/24 02/13/24 Range/Units 11:29 16:35 18:18 POC Glucose (mg/dL) 156 H 164 H 203 H (70-110) mg/dL 02/13/24 02/14/24 Range/Units 20:04 06:13 POC Glucose (mg/dL) 149 H 235 H (70-110) mg/dL Assessment and Plan Time with Patient: Greater than 30
--- NOTE | 2024-02-15 11:28 | P.PN ---
Subjective Progress Note Date: 02/15/24 58 years old female with past medical history of multiple medical problems as below She has been incarcerated for 52 days, there is officer at bedside. Patient presents because of shortness of breath and exertional dyspnea has for the last 2 days, she states she hears herself wheezing when she lies down. Currently she is breathing quietly. She is complaining for mild chest pain on the left side, nonradiating nonspecific, feels much better now and very mild. She follow-up with her confectionery laboratory manager Dr. Donal Herrera and search engineer Dr. Babb who examined her about 2 months ago where she has some mild ulcer In the bottom of her right total This morning patient has low-grade fever 100.2 She is also mildly tachypneic around 22 She is saturating 93% on 2 L oxygen via nasal cannula Labs reviewed showing hemoglobin of 7.7, rest of CBC is unremarkable BMP liver enzymes not elevated. INR 0.9. Lactic 0.9 proBNP is elevated 25 100 EKG showing sinus rhythm at [address]-T changes, no left bundle branch block 02/08/2024 Patient lying in bed, relaxed however she has mild tachypnea, mild distress She has significant coughing but she denies chest pain. Normal palpitation but patient has bilateral leg swelling No abdominal pain, no suprapubic pain or tenderness. But she has increased frequency of urination, last night she peed 4 times which is unusual for her. Urine analysis suspicious for infection and patient had low-grade temperature of 100.2 and she was started on Rocephin pending urine culture. Bladder scan was checked it was -101-150. She has about 900-1000 mL of urine output overnight.. Glucose improved after we stopped her Levemir 8 units twice daily, recommend to start it as 5 units daily. Continue with sliding scale. Also because of her tachypnea we will going to repeat chest x-ray. Renal function has worsened to 3.3 in the close were consulted. No evidence of hypotension. No NSAIDs Hemoglobin stable at 7.1, no need for endoscopy by a GI team. Workup so far showing anemia of chronic disease, B12 and folate is pending. Patient continued on heparin drip for her non-STEMI. We are going to check occult blood in the stool Patient currently on IV Lasix 40 mg 3 times a day. We lowered to twice a day given worsening renal function. Further recommendation pending further workup like chest x-ray 02/09/2024 Patient still complaining of shortness of breath but improving. Leg swelling is coming down No chest pain. Patient remains on Lasix drip. Heparin drip was discontinued Her creatinine was elevated yesterday, she has evidence of urine retention and Saldaña catheter was placed IV Lasix was switched to Lasix drip 5 mg/h. Repeat 2.2 L yesterday Saldaña catheter in place She is currently also on aspirin. Urine culture is negative she remains on ceftriaxone. Pneumonia also not entirely excluded. Check pro- Calcitonin tomorrow and repeat chest x-ray tomorrow General ultrasound at bedside 02/10/24: Patient seen and evaluated at bedside, blood work reviewed WBC 6.1 hemoglobin 7.2, serum chemistry sodium 129 BUN 69 creatinine 3.44 magnesium 1.9 procalcitonin 1.69, chest x-ray does show diffuse interstitial opacity, patient denies blood in stool : Patient seen and evaluated at bedside. Serum chemistry reviewed creatinine 3.71 sodium 131, magnesium 1.8 input from nephrology. Patient remains on Lasix drip. 02/12/24: Patient seen and evaluated at bedside, blood work reviewed, blood glucose ranging between 1 50-300, mealtime insulin adjusted. CBC shows hemoglobin of 6.7, magnesium of 1 point patient remains on 3 L of oxygen. Patient does complain of shortness of breath 02/13/2024 Patient is lying in the bed. Awake alert and oriented. Currently requiring oxygen at 3 L via nasal cannula. Breathing status is slightly better than yesterday. Otherwise patient is being continued on Lasix drip. No complaints of nausea or vomiting. No fever no chills. Laboratory data showed WBC 6.2 hemoglobin 7.4 and platelets 377 BUN 83 and creatinine 3.60 and blood sugar 154. Calcium 8.0. Patient is on antibiotics ceftriaxone 1 g daily. Pulmonary, cardiology and nephrology is on board. 02/14/2024 Patient is currently lying in the bed. Awake alert and oriented x 3. Was complaining of abdominal discomfort mainly epigastric and mid abdomen. No no episodes of vomiting. No complaints of chest pain. Breathing status is fairly stable. Currently requiring 3 L oxygen via nasal cannula. Patient is being continued on Lasix drip. Chest x-ray today showed diffuse bilateral infiltrate with small effusion and early CHF or edema. Otherwise consider pneumonia. Laboratory data showed sodium 135 potassium 4.6 chloride 106 bicarb is 20 BUN is 87 and creatinine 3.55 blood sugar is 258. Cardiology is planning for stress test. 02/15/2024 Patient is awake alert and oriented. No complaints of worsening shortness of breath. Requiring oxygen at 2 L via nasal cannula. Remains on IV Lasix drip. Patient underwent Lexiscan stress test today. Otherwise he blood pressure is stable. No complaints of nausea or vomiting. No fever or chills. BMP is not available at this time. Patient is being continued on aspirin and statins and metoprolol and insulin regimen. Blood sugar is fairly controlled. Physical examination GENERAL: The patient is alert and oriented x3, not in any acute distress. Ill appearance, pale appearing HEENT: Pupils are round and equally reacting to light. EOMI. Normocephalic, atraumatic. No pharyngeal erythema. No thyromegaly. CARDIOVASCULAR: S1 and S2 present. No murmurs, rubs, or gallops. PULMONARY: Decreased breath sounds bilaterally ABDOMEN: Soft, nontender, nondistended, normoactive bowel sounds. No palpable organomegaly. Saldaña catheter in place MUSCULOSKELETAL: No joint swelling or deformity. EXTREMITIES: No cyanosis, clubbing, 1+ bilateral pitting leg edema. NEUROLOGICAL: Gross neurological examination did not reveal any focal deficits. Assessment: Acute congestive heart failure with systolic dysfunction ejection fraction of 20-25 % New onset cardiomyopathy. Ischemic versus nonischemic. Acute hypoxemic respiratory failure multifactorial CHF, multifocal pneumonia. Multifocal pneumonia Non-ST elevated NM Acute kidney injury due to ATN secondary to cardiorenal. Patient is nonoliguric Acute on chronic anemia of chronic disease Acute urinary tract infection, urine culture showing skin or genital kwesi Chronic kidney disease stage II with acute kidney injury Urinary retention status post Saldaña catheter placement Diabetes mellitus type 2 Plan: In regards to hypoxemic respiratory failure, CHF exacerbation, continue patient on IV Lasix drip, continue to monitor intake and output continue with fluid restriction. Regards to multifocal pneumonia procalcitonin elevated continue. Completed ceftriaxone for 5 days on 02/13/2024 In regards to elevated troponin, continue current management medically, not a candidate for cardiac catheterization secondary to renal failure and anemia. Lexiscan stress test was done today.. In regards to diabetes mellitus Accu-Cheks ACHS continue patient on correctional insulin, NovoLog and Levemir In regards to anemia, continue to monitor H&H transfuse if hemoglobin less than 7, 1 unit of packed RBC ordered, fecal occult blood test ordered. Continue to titrate oxygen to room air. Objective - Vital Signs Vital signs: Vital Signs Temp 97.8 F 02/15/24 00:00 Pulse 80 02/15/24 08:41 Resp 16 02/15/24 04:00 BP 115/71 02/15/24 04:00 Pulse Ox 98 02/15/24 08:28 FiO2 Intake & Output 02/14/24 02/15/24 02/15/24 18:59 06:59 18:59 Intake Total 566 192.667 Output Total 800 1000 Balance -234 -807.333 Intake: Intake, IV Titration 100 192.667 Amount Furosemide 100 mg In 100 192.667 Sodium Chloride 0.9% 90 ml @ 10 MG/HR 10 mls/hr IV .Q10H [id number] Rx#: [id number] Oral 466 Output: Urine 800 1000 Other: Voiding Method Indwelling Catheter Indwelling Catheter # Bowel Movements 1 1 - Labs CBC & Chem 7: 02/13/24 09:10 02/14/24 09:48 Labs: Abnormal Lab Results - Last 24 Hours (Table) 02/14/24 02/14/24 02/14/24 Range/Units 09:48 11:34 15:20 Sodium 135 L (137-145) mmol/L Carbon Dioxide 20 L (22-30) mmol/L BUN 87 H (7-17) mg/dL Creatinine 3.55 H (0.52-1.04) mg/dL Glucose 258 H (74-99) mg/dL POC Glucose (mg/dL) 300 H (70-110) mg/dL Calcium 8.3 L (8.4-10.2) mg/dL Troponin I 0.542 H* (0.000-0.034) ng/mL 02/14/24 02/14/24 02/15/24 Range/Units 16:24 19:55 06:04 Sodium (137-145) mmol/L Carbon Dioxide (22-30) mmol/L BUN (7-17) mg/dL Creatinine (0.52-1.04) mg/dL Glucose (74-99) mg/dL POC Glucose (mg/dL) 222 H 156 H 145 H (70-110) mg/dL Calcium (8.4-10.2) mg/dL Troponin I (0.000-0.034) ng/mL Assessment and Plan Time with Patient: Greater than 30
--- NOTE | 2024-02-15 11:36 | P.PN ---
Subjective Patient is seen in follow-up for acute kidney injury. Renal function stable as of yesterday. Currently on Lasix drip. Has Saldaña catheter for urinary retention. Nonoliguric. Underwent stress test this morning. Vital signs are stable. General: No acute distress. HEENT: Head exam is unremarkable. On nasal cannula. LUNGS: No audible rhonchi or wheezes. HEART: Rate and Rhythm are regular. ABDOMEN: Nontender. EXTREMITITES: No edema. Objective - Vital Signs Vital signs: Vital Signs Temp 97.8 F 02/15/24 00:00 Pulse 80 02/15/24 08:41 Resp 16 02/15/24 04:00 BP 115/71 02/15/24 04:00 Pulse Ox 98 02/15/24 08:28 FiO2 Intake & Output 02/14/24 02/15/24 02/15/24 18:59 06:59 18:59 Intake Total 566 192.667 Output Total 800 1000 Balance -234 -807.333 Intake: Intake, IV Titration 100 192.667 Amount Furosemide 100 mg In 100 192.667 Sodium Chloride 0.9% 90 ml @ 10 MG/HR 10 mls/hr IV .Q10H [facility] Rx#: [id number] Oral 466 Output: Urine 800 1000 Other: Voiding Method Indwelling Catheter Indwelling Catheter # Bowel Movements 1 1 - Labs CBC & Chem 7: 02/13/24 09:10 02/14/24 09:48 Labs: Abnormal Lab Results - Last 24 Hours (Table) 02/14/24 02/14/24 02/14/24 Range/Units 09:48 11:34 15:20 Sodium 135 L (137-145) mmol/L Carbon Dioxide 20 L (22-30) mmol/L BUN 87 H (7-17) mg/dL Creatinine 3.55 H (0.52-1.04) mg/dL Glucose 258 H (74-99) mg/dL POC Glucose (mg/dL) 300 H (70-110) mg/dL Calcium 8.3 L (8.4-10.2) mg/dL Troponin I 0.542 H* (0.000-0.034) ng/mL 02/14/24 02/14/24 02/15/24 Range/Units 16:24 19:55 06:04 Sodium (137-145) mmol/L Carbon Dioxide (22-30) mmol/L BUN (7-17) mg/dL Creatinine (0.52-1.04) mg/dL Glucose (74-99) mg/dL POC Glucose (mg/dL) 222 H 156 H 145 H (70-110) mg/dL Calcium (8.4-10.2) mg/dL Troponin I (0.000-0.034) ng/mL Assessment and Plan Plan: Assessment: 1. Acute kidney injury secondary to ATN secondary to cardiorenal syndrome. Creatinine fairly stable at 3.55 yesterday. Creatinine as low as 0.98 dated March 01, 2022. No hydronephrosis noted on kidney ultrasound. Serologies negative. 2. Acute on chronic systolic CHF with ejection fraction of 20 to 25% with moderate to severe mitral regurgitation and mild pulmonary hypertension. 3. Volume overload. Improving with diuresis. 4. Anemia. Iron deficiency noted. Status post IV iron. On Aranesp. GI following. Status post blood transfusion this admission. Also received IV DDAVP. 5. Metabolic acidosis secondary to acute kidney injury. On oral bicarb. Stable. 6. Hypervolemic hyponatremia. Also component of hypertonicity from hyperglycemia. Better. 7. Urinary retention status post Saldaña catheter placement. On Flomax. Plan: Maintain Lasix drip. Metolazone 5 mg once today. Strict I's and O's. Maintain 1200 cc fluid restriction. Blood glucose control. Continue to monitor renal function and urine output. Morning labs pending.
[2024-02-15 11:43] LABS: Glucose,Whole Blood 212 mg/dL (70-110)
--- NOTE | 2024-02-15 11:46 | NM ---
EXAMINATION TYPE: NM stress lexiscan cardiolite DATE OF EXAM: 02/15/2024 COMPARISON: NONE CLINICAL INDICATION: Female, 58 years old with history of chest pain; TECHNIQUE: After the intravenous administration of 10.67 mCi Tc 99m Sestamibi - Cardiolite resting S PECT images acquired 45 minutes post injection. The patient received 0.4mg Lexiscan, 26.5 mCi Tc 99m Sestamibi - Stress images obtained [address] injection FINDINGS: Review of stress and rest SPECT images demonstrates large area of fixed defect involving the myocardi al septum, apex and anterior wall. Artifact limits assessment of the inferoapical wall.. Gated suzanne sis shows reduced wall motion with an estimated left ventricular ejection fraction of 21 %. IMPRESSION: Large area of fixed defect involving all segments of the myocardium suggestive of remote ischemia. Cannot exclude a tiny area of stress-induced reversibility within the apex. Reduced wall motion activity with ejection fraction of only 21%.
[2024-02-15 11:50] LABS: HCT 27.6 % (34.0-46.0); HGB 8.6 gm/dL (11.4-16.0); Hypochromasia Slight; MCH 30.8 pg (25.0-35.0); MCHC 31.2 g/dL (31.0-37.0); Mean Platelet Volume 8.1; Platelet Count 438 k/uL (150-450); RBC 2.79 m/uL (3.80-5.40); RDW 14.1 % (11.5-15.5); WBC 6.8 k/uL (3.8-10.6)
[2024-02-15 12:01] LABS: African American GFR (CKD) 16 (>60 ml/min/1.73 sqM); Anion Gap 10 mmol/L; Blood Urea Nitrogen 84 mg/dL (7-17); Calcium 8.6 mg/dL (8.4-10.2); Carbon Dioxide 21 mmol/L (22-30); Chloride 104 mmol/L (98-107); Glucose 171 mg/dL (74-99); Magnesium 2.1 mg/dL (1.6-2.3); Non-African American GFR(CKD) 14 (>60 ml/min/1.73 sqM); Sodium 135 mmol/L (137-145)
[2024-02-15 12:06] LABS: MCV 98.8 fL (80.0-100.0)
[2024-02-15] MEDS: metOLazone 5 MG TAB PO ONE (12:37)
--- NOTE | 2024-02-15 14:33 | P.PN ---
Subjective Progress Note Date: 02/15/24 Patient is a 58-year-old white female with past medical history significant for COPD, chronic ongoing tobacco dependence, CVA/TIA, diabetes mellitus, hyperlipidemia, hypertension, hypothyroidism, fibromyalgia, GERD, among other things. Patient presented back on 02/06/2024 from retirement with chief complaint of increased lower extremity swelling. She states that she first noted the swelling back in December,. It is progressively worsened, she states she has gained approximately 20 pounds over the last 2 months. Approximately 10 days ago she was awoken at night with substernal chest pain. Nonradiating. With associated shortness of breath and sweating. Lasted up to 15 minutes. She is also had a nonproductive cough. She was noted to be febrile this admission. She is empirically covered on antibiotics. On arrival to the emergency room, she was noted to have elevated troponins of 1.29, 1.76, and 2.2. EKG showed normal sinus rhythm with left bundle branch block, without any other acute isc hemic changes. No previous EKG for comparison. She was started on heparin infusion per protocol. She also was on a Nitropaste. Echocardiogram showed a severely impaired left ventricular ejection fraction of 20 to 25%, and moderate to severe mitral regurgitation. Today, she was started on a Lasix infusion at 5 mg/h. Heparin infusion was stopped as the patient is anemic. Patient denies any acute blood loss. No vaginal bleeding. No juan blood in stool. No melena. No nausea or vomiting or hematic emesis. Last colonoscopy was reportedly around 10 years ago. She is currently lying in bed, on 2 L/min nasal cannula. Chest x-ray on admission shows diffuse interstitial edema as well as bilateral consolidation and small effusions. Findings consistent with congestive heart failure. NT proBNP was elevated 25,000. Patient not making much urine despite Lasix infusion. Patient did have 1 episode of fever during her admission with a Tmax of 100.2 F. She was empirically she was empirically placed on Rocephin. Negative for influenza, RSV, COVID. Most recent BMP from today: Sodium 130, potassium 5.1, chloride 104, serum bicarb down to 17, BUN 63, creatinine worsening and 3.34, glucose 229. LFTs mildly elevated. Hepatitis panel nonreactive. Overall, hemodynamically stable. On 02/08/2024, seen the patient for a follow-up. The patient is currently on 3 L of oxygen by nasal cannula with a pulse ox of 94%. She should be able to wean down. She is on Lasix drip at 5 mg an hour and the patient is producing adequate amount of urine output. Her fluid balance is negative. As mentioned, the patient is post non-ST segment ovation myocardial infarction the patient is being seen by cardiology. The patient has severe cardiomyopathy with impaired left ventricular ejection fraction. Her blood work from today shows a BUN of 66 with a creatinine of 3.41 and this is consistent with an acute on chronic kidney injury. Sodium levels at 129, potassium is at 4.4 with a WBC count of 6.3 and a hemoglobin of 7.4. The patient is on IV Rocephin as an empiric antibiotic coverage. She is currently afebrile. The patient is being seen by cardiology. The patient will be kept on IV Lasix. Not a candidate for any invasive cardiac workup due to her acute on top of chronic kidney injury at this point in time. Her comorbidities are multiple. Unsure if she does have underlying coronary artery disease. Nevertheless, she has previous history of CVA, diabetes mellitus type 2, hypothyroidism and CHF. She was in retirement for being arrested due to possession of amphetamines. Vasculitis workup was negative including a negative EDSON and a negative P and C ANCA. Hepatitis profile was also negative. On 02/10/2024, the patient is being seen for a follow-up. No new complaints. No significant shortness of breath at rest. Remains on Lasix drip. Producing adequate amount of urine output. Blood work from today was noticed that the patient has a white cell count of 6 with a hemoglobin of 7.2 and a PET scan at 360. BUN 69 with a creatinine of 3.4 and a sodium levels at 129. The patient is being seen by cardiology and nephrology addition. She remains on Lasix drip which will be increased up to 10 mg an hour. Not a candidate for further cardiac catheterization based on underlying renal dysfunction. 02/11/2024, the patient is being seen for a follow-up. No new complaints. Monitor for improvement in her condition. She remains on 2 L of oxygen by nasal cannula. Fluid balance is -90 cc over the past 24 hours. Suboptimal response to diuretics and the patient remains on Lasix at 10 mg an hour. BUN 71 with a creatinine of 3.7, slightly worse compared to yesterday. Sodium is at 131. The patient denies having any chest pain. No significant hypotension. Remains on aspirin. Remains on metoprolol 25 mg p.o. twice a day. Cardiology on the case. She has significant cardiomyopathy. She is post acute non-STEMI. Not a candidate for cardiac catheterization due to renal impairment. The patient is seen today February 12, 2024 in follow-up on the selective care unit. She is currently sitting up in bed. Awake and alert in no acute distress. She is maintaining O2 saturation in the 90s on 3 L nasal cannula. She is afebrile. Hemodynamically stable. Today's chest x-ray reviewed reveals diffuse bilateral infiltrates with small effusion or early congestive heart failure. Hemoglobin 6.7. 1 unit of packed blood cells have been ordered. Platelets 362. White cou nt 6.1. Sodium 131. Potassium 4.2. Bicarb 21. BUN 80. Creatinine 3.89. Glucose 286. She remains on. Antibiotics in the form of ceftriaxone. Remains on a Lasix drip at 5 mg an hour. Currently in a -178 mL balance. The patient is seen today February 13, 2024 in follow-up on the selective care unit. She is awake and alert in no acute distress. Sitting up in bed. Blood and urine cultures revealed no growth. White count 6.2. Hemoglobin 7.4. Platelets 01/05/1978. Sodium 133. Potassium 3.9. Bicarb 21. BUN 83. Creatinine 3.60. Glucose 154. She remains on a Lasix drip currently at 5 mg/h. She remains on a heparin drip. Receiving sodium bicarb tablets. Continued on bronchodilators. Continued on antibiotics in the form of ceftriaxone. She is currently in a negative balance. Voided 1 L today. The patient is seen today February 14, 2024 in follow-up on the selective care unit. She is currently sitting up in bed. Awake and alert in no acute distress. She is maintaining good O2 saturations in the 90s on 3 L/min per nasal cannula. She is afebrile. Hemodynamically stable. Follow-up chest x-ray continues to show diffuse bilateral infiltrate with small effusions. She is status post 1 unit of packed red blood cells this admission. Last hemoglobin 7.7. Sodium 135. Potassium 4.6. Bicarb 20. BUN 87. Creatinine 3.55. Glucose 358. She is continued on bronchodilators. Antibiotics in form of ceftriaxone. She remains on a Lasix drip at 10 mg/h. Receiving sodium bicarb tablets. Currently -688 mL balance. Nephrology is following. The patient is seen today February 15, 2024 in follow-up on the selective care unit. She is currently sitting up in bed awake and alert in no acute distress. She is maintaining O2 saturations in the mid 90s on 2 L/min per nasal cannula. She is afebrile. Hemodynamically stable. White count 6.8. Hemoglobin 8.6. Platelets 438. Sodium 135. Potassium 4.0. Bicarb 21. BUN 84. Creatinine 3.41. Glucose 171. She remains on a Lasix drip at 10 mg/h. Continued on a heparin drip. Plan to -1 L balance. Stress testing today reveals a large area of fixed defect involving all segments of the myocardium suggestive of remote ischemia. Could not exclude a tiny area of stress-induced reversibility within the apex. Reduced wall motion activity with ejection fraction of only 21%. Objective - Vital Signs Vital signs: Vital Signs Temp 98.0 F 02/15/24 11:00 Pulse 93 02/15/24 12:00 Resp 18 02/15/24 12:00 BP 143/84 02/15/24 12:00 Pulse Ox 95 02/15/24 12:00 FiO2 Intake & Output 02/14/24 02/15/24 02/15/24 18:59 06:59 18:59 Intake Total 566 192.667 Output Total 800 1000 Balance -234 808.333 Intake: Intake, IV Titration 100 192.667 Amount Furosemide 100 mg In 100 192.667 Sodium Chloride 0.9% 90 ml @ 10 MG/HR 10 mls/hr IV .Q10H [facility] Rx#: [id number] Oral 466 Output: Urine 800 1000 Other: Voiding Method Indwelling Catheter Indwelling Catheter Indwelling Catheter # Bowel Movements 1 1 - Exam GENERAL EXAM: Alert, 58-year-old female, sitting up in bed, on 3 L nasal cannula, in no apparent distress. HEAD: Normocephalic and atraumatic EYES: Normal reaction of pupils, equal size. NOSE: Clear with pink turbinates. THROAT: No erythema or exudates. NECK: No masses, no JVD. CHEST: No chest wall deformity. LUNGS: Equal air entry with bibasilar crackles and mild and expiratory wheezes heard bilaterally. CVS: S1 and S2 normal with no audible murmur, regular rhythm. No extra heart sounds ABDOMEN: No hepatosplenomegaly, active bowel sounds, no guarding or rigidity. SPINE: No scoliosis or deformity SKIN: No rashes CENTRAL NERVOUS SYSTEM: No focal deficits, tone is normal in all 4 extremities. EXTREMITIES: There is lower extremity pitting edema, 1-2+ bilaterally. No clubbing, or cyanosis. Peripheral pulses are intact. - Labs CBC & Chem 7: 02/15/24 11:12 02/15/24 11:12 Labs: Abnormal Lab Results - Last 24 Hours (Table) 02/14/24 02/14/24 02/14/24 Range/Units 15:20 16:24 19:55 RBC (3.80-5.40) m/uL Hgb (11.4-16.0) gm/dL Hct (34.0-46.0) % Sodium (137-145) mmol/L Carbon Dioxide (22-30) mmol/L BUN (7-17) mg/dL Creatinine (0.52-1.04) mg/dL Glucose (74-99) mg/dL POC Glucose (mg/dL) 222 H 156 H (70-110) mg/dL Troponin I 0.542 H* (0.000-0.034) ng/mL 02/15/24 02/15/24 02/15/24 Range/Units 06:04 11:12 11:12 RBC 2.79 L (3.80-5.40) m/uL Hgb 8.6 L (11.4-16.0) gm/dL Hct 27.6 L (34.0-46.0) % Sodium 135 L (137-145) mmol/L Carbon Dioxide 21 L (22-30) mmol/L BUN 84 H (7-17) mg/dL Creatinine 3.41 H (0.52-1.04) mg/dL Glucose 171 H (74-99) mg/dL POC Glucose (mg/dL) 145 H (70-110) mg/dL Troponin I (0.000-0.034) ng/mL 02/15/24 Range/Units 11:41 RBC (3.80-5.40) m/uL Hgb (11.4-16.0) gm/dL Hct (34.0-46.0) % Sodium (137-145) mmol/L Carbon Dioxide (22-30) mmol/L BUN (7-17) mg/dL Creatinine (0.52-1.04) mg/dL Glucose (74-99) mg/dL POC Glucose (mg/dL) 212 H (70-110) mg/dL Troponin I (0.000-0.034) ng/mL Assessment and Plan Assessment: Acute non-ST elevation PR. Stress testing today 02/15/2024 reveals a large area of fixed defect involving all segments of the myocardium suggestive of remote ischemia. Cannot exclude a tiny area of stress-induced reversibility within the apex. Reduced wall motion activity with ejection fraction of only 21%. Remains on heparin drip. Acute hypoxemic respiratory failure, currently on 2 L/min nasal cannula, secondary to exacerbation of systolic congestive heart failure and above, Chest x-ray on admission shows diffuse interstitial edema as well as bilateral consolidation and small effusions. Findings consistent with congestive heart failure, however, superimposed community-acquired bibasilar pneumonia is not excluded. Ischemic cardiomyopathy with an estimated left ventricular ejection fraction severely impaired at 20 to 25% as well as moderate to severe mitral valve regurgitation, currently on Lasix infusion at 5 mg/h, responding to diuresis with Lasix drip. Negative fluid balance. Severe mitral valve regurgitation Acute febrile illness, recovered Normocytic normochromic anemia, current hemoglobin 7.4, received 1 unit of packed red blood cell Acute kidney injury, likely cardiorenal, worsening creatinine, the patient is producing adequate amount of urine output Metabolic non-anion gap acidosis, secondary to above Chronic obstructive pulmonary disease, stable Diabetes mellitus type 1 History of hyperlipidemia History of hypertension History of CVA/TIA History of hypothyroidism History of fibromyalgia History of GERD Mildly elevated LFTs, hepatitis panel nonreactive Former tobacco smoker, 1/2 pack/day or approximately 15-year pack history Plan: The patient was seen and evaluated Stress test, labs and medications reviewed Remains stable on 3 L nasal Continued on a Lasix drip Continue 1200 ml fluid restriction Continued on a heparin drip Nephrology and cardiology following We will continue to follow I have personally seen and examined the patient, performed the documentation and the assessment and plan as written. Number of minutes spent on the visit: 10.
--- NOTE | 2024-02-15 15:31 | P.PN ---
Subjective Progress Note Date: 02/15/24 HISTORY OF PRESENT ILLNESS: This is a 58-year-old female with a past medical history significant for former nicotine dependence, hypertension, CVA, hypothyroidism, and diabetes. Patient follows in the office with Dr. Saunders and was last seen in May 2023. We have been asked to see the patient in consultation for non-STEMI and CHF. Patient examined at the bedside in the emergency room. Patient is currently incarcerated and there is a boiler tube reamer at the bedside. Patient states she has been feeling short of breath and feeling weak. She states this started about 2 days ago. She states that she was in court and afterwards they had to use a wheelchair to get her back into the vehicle as she was too weak to walk. She also reports feeling dizzy and having pounding in her chest. She reports a sli ght cough. She denied having a fever previously to her knowledge. However patient was febrile this morning with a temperature of 100.2. She also reports lower extremity edema that started in the middle of December. She reports nausea yesterday that was relieved with Zofran. Patient was found to be anemic on admission with a hemoglobin of 7.7. Repeat 7.1. Last hemoglobin was back in 2021 but was normal at 12.3. The patient denies a history of anemia. Unsure if this anemia is new or has been present for a while as her last blood work was not since 2021. She denies any blood in her stool or urine. She does report decreased urine output. Patient was also found to have acute kidney injury with a creatinine of 2.96. Back in 2021, patient's kidney function was within normal limits. Patient was also found to have elevated troponins and was started on IV heparin. She denied having any chest pain or pressure. Patient is a former cigarette smoker and has not smoked in 55 days since being in senior living. She denies alcohol abuse many years ago but nothing recently. She denies drug use in cluding marijuana. DIAGNOSTICS: - EKG reveals sinus mechanism with left bundle branch block. - Chest xray consolation of findings favor CHF over pneumonia. Correlate clinically. Underlying COPD. Loop recorder device seen. Bilateral consolidation and small effusion with diffuse interstitial pattern.. - Laboratory data: WBC 6.2. Hemoglobin 7.1. Platelet count 300. Sodium 133. Potassium 4.9. BUN 56. Creatinine 2.96. AST 55. ALT 35. proBNP 25,100. Troponin 1.290. 1.760. 2.210. - Current home cardiac medications include Lipitor 20 mg at night. - Most recent echocardiogram obtained in February 2022 revealed ejection fraction 55 to 60%, mild MR, mild TR - Patient underwent dobutamine stress test in March 2023 at the office which was negative for ischemia 02/08/2024 Patient examined this morning at the bedside. Patient states her shortness of breath has improved today. She complains of mild chest discomfort when she feels short of breath. She states the chest pain is worse with deep inspiration. Her lower extremity edema has improved from yesterday. She has been transition to IV Lasix drip per nephrology. Echocardiogram completed revealing ejection fraction 20 to 25%, mild pulm hypertension, moderate to severe mitral regurgitation, mild aortic regurgitation, trace to mild tricuspid regurgitation and small pericardial effusion. 02/09/2024 Patient examined this morning at the bedside. Patient continues to report shortness of breath at the time of examination. She reports that she developed a cough also today. She reports chest discomfort that is worse with deep insp iration. She remains on a Lasix drip at 5 mg an hour. Creatinine 3.41. Hemoglobin 7.4. Blood pressure is stable. Telemetry reveals sinus mechanism. 02/10/2024 Patient examined this morning at the bedside. Patient continues to report shortness of breath. She continues to have a cough. She denies any chest discomfort at the time of examination. She remains on a Lasix drip at 5 mg an hour. Creatinine today is 3.44. Hemoglobin 7.2. 02/11/2024 Patient examined this morning at the bedside. Patient reports that she slept well overnight. She currently denies any chest pain or pressure. She reports improvement in her shortness of breath and also with her cough. Renal function worsened today at 3.71. She remains on IV Lasix at 10 mg an hour. 02/11 Patient seen and examined. Patient still minutes to significant shortness breath mainly with exertion. She occasionally has some chest tightness however not clearly associated with exertion and more feels like she cannot take a deep breath in. Creatinine stable at 3.8. She is receiving 1 unit of packed red blood cell for hemoglobin 6.7. Remains on IV diuretics. 02/12 Patient is seen today in follow-up. She states she may feel a little bit better after blood transfusion but continues to feel tired, shortness of breath have some chest pain with exertion. Blood pressure 125/80, heart rate between 72 and 91, pulse ox 95% on room air. Repeat blood work reveals hemoglobin 7.4. BUN 83 creatinine 2.6. Discussed option of stress test in the next 1 to 2 days and patient is agreeable for this. 02/13 Patient complains of feeling tired, upset stomach. She has shortness of breath with minimal activity. She had an episode of chest pain last night but none now. Renal function is worsening with BUN of 87 creatinine 3.55. Sodium 135, potassium 4.6. 02/14 Lexiscan Cardiolite stress test came back abnormal with large area of fixed defect involving all segments of the myocardium suggestive of remote ischemia. Cannot exclude a tiny area of stress induced reversibility within the apex. Reduced wall motion activity with EF of only 21%. Results reviewed with patient and next option with cardiac catheterization discussed with the patient with understanding that patient does have abnormal renal function and would need to be cleared by nephrology. Dr. Berman will contact Dr. Lane regarding possible cardiac catheterization. Blood pressure 143/84, heart rate 93, pulse ox 95% on 2 L nasal cannula. Patient remains on IV Lasix drip at 10 mg/h. She has a negative fluid balance. She is on a fluid restriction of 1200 mL PHYSICAL EXAM: VITAL SIGNS: Reviewed. GENERAL: Well-developed in no acute distress. HEENT: Head is normocephalic. Pupils are equal, round. Sclerae anicteric. Mucous membranes of the mouth are moist. Neck supple. No JVD or thyromegaly LUNGS: Respirations even and unlabored. Lungs essentially clear to auscultation bilaterally. HEART: Regular rate and rhythm. S1 and S2 heard. ABDOMEN: Soft. Nondistended. Nontender. EXTREMITIES: No clubbing or cyanosis. Peripheral pulses intact. 2+ bilateral lower extremity edema NEUROLOGIC: Awake and alert. Oriented x 3. ASSESSMENT: Febrile illness Shortness of breath Acute heart failure with reduced EF, 20 to 25% New onset cardiomyopathy, ischemic versus nonischemic Non-STEMI Left bundle branch block Acute kidney injury, renal function was fairly normal in 2021 Anemia, acute anemia versus anemia of chronic disease due to renal failure, duration of anemia/EDWINA unknown History of hypertension History of CVA x 2 Diabetes Hypothyroidism Former nicotine dependence Minimally elevated LFTs PLAN: Continue current cardiac medications Nephrology following. Continue IV Lasix infusion per nephrology. Daily weights, accurate intake and output, and monitoring of kidney function Abnormal Lexiscan stress test. Patient will be made n.p.o. tonight for possible cardiac catheterization tomorrow. Further recommendations pending patient course Nurse practitioner note has been reviewed, I agree with documented findings and plan of care. Patient was seen and examined. Objective - Vital Signs Vital signs: Vital Signs Temp 98.0 F 02/15/24 11:00 Pulse 93 02/15/24 12:00 Resp 18 02/15/24 12:00 BP 143/84 02/15/24 12:00 Pulse Ox 95 02/15/24 12:00 FiO2 Intake & Output 02/14/24 02/15/24 02/15/24 18:59 06:59 18:59 Intake Total 566 192.667 Output Total 800 1000 Balance -234 -807.333 Intake: Intake, IV Titration 100 192.667 Amount Furosemide 100 mg In 100 192.667 Sodium Chloride 0.9% 90 ml @ 10 MG/HR 10 mls/hr IV .Q10H [id number] Rx#: [id number] Oral 466 Output: Urine 800 1000 Other: Voiding Method Indwelling Catheter Indwelling Catheter Indwelling Catheter # Bowel Movements 1 1 - Labs CBC & Chem 7: 02/15/24 11:12 02/15/24 11:12 Labs: Abnormal Lab Results - Last 24 Hours (Table) 02/14/24 02/14/24 02/14/24 Range/Units 15:20 16:24 19:55 RBC (3.80-5.40) m/uL Hgb (11.4-16.0) gm/dL Hct (34.0-46.0) % Sodium (137-145) mmol/L Carbon Dioxide (22-30) mmol/L BUN (7-17) mg/dL Creatinine (0.52-1.04) mg/dL Glucose (74-99) mg/dL POC Glucose (mg/dL) 222 H 156 H (70-110) mg/dL Troponin I 0.542 H* (0.000-0.034) ng/mL 02/15/24 02/15/24 02/15/24 Range/Units 06:04 11:12 11:12 RBC 2.79 L (3.80-5.40) m/uL Hgb 8.6 L (11.4-16.0) gm/dL Hct 27.6 L (34.0-46.0) % Sodium 135 L (137-145) mmol/L Carbon Dioxide 21 L (22-30) mmol/L BUN 84 H (7-17) mg/dL Creatinine 3.41 H (0.52-1.04) mg/dL Glucose 171 H (74-99) mg/dL POC Glucose (mg/dL) 145 H (70-110) mg/dL Troponin I (0.000-0.034) ng/mL 02/15/24 Range/Units 11:41 RBC (3.80-5.40) m/uL Hgb (11.4-16.0) gm/dL Hct (34.0-46.0) % Sodium (137-145) mmol/L Carbon Dioxide (22-30) mmol/L BUN (7-17) mg/dL Creatinine (0.52-1.04) mg/dL Glucose (74-99) mg/dL POC Glucose (mg/dL) 212 H (70-110) mg/dL Troponin I (0.000-0.034) ng/mL
[2024-02-15 16:42] LABS: Glucose,Whole Blood 306 mg/dL (70-110)
[2024-02-15 19:55] LABS: Glucose,Whole Blood 159 mg/dL (70-110)
[2024-02-16 06:11] LABS: Glucose,Whole Blood 157 mg/dL (70-110)
[2024-02-16] MEDS ORDERED: HEPARIN SODIUM,PORCINE 10,000 UNIT in SODIUM CHLORIDE 0.9% 1,000 ML IRRIGATION PRN (07:00)
[2024-02-16] MEDS ORDERED: HEPARIN SODIUM,PORCINE (1 ML) 2,500 UNIT in SODIUM CHLORIDE 0.9% 250 ML IRRIGATION PRN (07:00)
[2024-02-16 08:22] LABS: African American GFR (CKD) 15 (>60 ml/min/1.73 sqM); Anion Gap 4 mmol/L; Blood Urea Nitrogen 85 mg/dL (7-17); Calcium 8.2 mg/dL (8.4-10.2); Carbon Dioxide 27 mmol/L (22-30); Chloride 103 mmol/L (98-107); Glucose 184 mg/dL (74-99); Non-African American GFR(CKD) 13 (>60 ml/min/1.73 sqM); Potassium 3.8 mmol/L (3.5-5.1); Sodium 134 mmol/L (137-145)
[2024-02-16] MEDS ORDERED: NITROGLYCERIN SL TABS 0.4 MG TAB SUBLINGUAL PRN (08:58)
[2024-02-16] MEDS: ATORVASTATIN 80 MG TAB PO STA (09:54)
[2024-02-16] MEDS: ASPIRIN 325 MG TAB PO STA (09:55)
--- NOTE | 2024-02-16 11:27 | P.PN ---
Subjective Patient is seen in follow-up for acute kidney injury. Renal function stable. Currently on Lasix drip. Has Saldaña catheter for urinary retention. Nonoliguric. Scheduled for cardiac catheterization today. Vital signs are stable. General: No acute distress. HEENT: Head exam is unremarkable. On nasal cannula. LUNGS: No audible rhonchi or wheezes. HEART: Rate and Rhythm are regular. ABDOMEN: Nontender. EXTREMITITES: No edema. Objective - Vital Signs Vital signs: Vital Signs Temp 98.0 F 02/16/24 09:44 Pulse 96 02/16/24 10:17 Resp 20 02/16/24 09:44 BP 130/70 02/16/24 09:44 Pulse Ox 93 L 02/16/24 09:44 FiO2 Intake & Output 02/15/24 02/16/24 02/16/24 18:59 06:59 18:59 Intake Total 758 80.667 Output Total 750 1200 Balance 8 -1119.333 Intake: Intake, IV Titration 100 80.667 Amount Furosemide 100 mg In 100 80.667 Sodium Chloride 0.9% 90 ml @ 10 MG/HR 10 mls/hr IV .Q10H [facility] Rx#: [id number] Oral 658 Output: Urine 750 1200 Other: Voiding Method Indwelling Catheter Indwelling Catheter - Labs CBC & Chem 7: 02/15/24 11:12 02/16/24 07:46 Labs: Abnormal Lab Results - Last 24 Hours (Table) 02/15/24 02/15/24 02/15/24 Range/Units 11:12 11:12 11:41 RBC 2.79 L (3.80-5.40) m/uL Hgb 8.6 L (11.4-16.0) gm/dL Hct 27.6 L (34.0-46.0) % Sodium 135 L (137-145) mmol/L Carbon Dioxide 21 L (22-30) mmol/L BUN 84 H (7-17) mg/dL Creatinine 3.41 H (0.52-1.04) mg/dL Glucose 171 H (74-99) mg/dL POC Glucose (mg/dL) 212 H (70-110) mg/dL Calcium (8.4-10.2) mg/dL 05/09/24 05/09/24 05/10/24 Range/Units 16:40 19:50 06:08 RBC (3.80-5.40) m/uL Hgb (11.4-16.0) gm/dL Hct (34.0-46.0) % Sodium (137-145) mmol/L Carbon Dioxide (22-30) mmol/L BUN (7-17) mg/dL Creatinine (0.52-1.04) mg/dL Glucose (74-99) mg/dL POC Glucose (mg/dL) 306 H 159 H 157 H (70-110) mg/dL Calcium (8.4-10.2) mg/dL 02/16/24 Range/Units 07:46 RBC (3.80-5.40) m/uL Hgb (11.4-16.0) gm/dL Hct (34.0-46.0) % Sodium 134 L (137-145) mmol/L Carbon Dioxide (22-30) mmol/L BUN 85 H (7-17) mg/dL Creatinine 3.58 H (0.52-1.04) mg/dL Glucose 184 H (74-99) mg/dL POC Glucose (mg/dL) (70-110) mg/dL Calcium 8.2 L (8.4-10.2) mg/dL Assessment and Plan Plan: Assessment: 1. Acute kidney injury secondary to ATN secondary to cardiorenal syndrome. Creatinine fairly stable at 3.58 yesterday. Creatinine as low as 0.98 dated March 01, 2022. No hydronephrosis noted on kidney ultrasound. Serologies negative. 2. Acute on chronic systolic CHF with ejection fraction of 20 to 25% with moderate to severe mitral regurgitation and mild pulmonary hypertension. 3. Volume overload. Improving with diuresis. 4. Anemia. Iron deficiency noted. Status post IV iron. On Aranesp. GI f ollowing. Status post blood transfusion this admission. Also received IV DDAVP. 5. Metabolic acidosis secondary to acute kidney injury. On oral bicarb. Stable. 6. Hypervolemic hyponatremia. Also component of hypertonicity from hyperglycemia. Better. 7. Urinary retention status post Saldaña catheter placement. On Flomax. Plan: Maintain Lasix drip. Status post metolazone dose given February 15, 2024. Strict I's and O's. Maintain 1200 cc fluid restriction. Blood glucose control. Continue to monitor renal function and urine output. Scheduled for cardiac catheterization today. Discussed with patient the potential risk of worsening renal function, potentially requiring renal placement therapy, post IV contrast exposure. She understands. Avoid aggressive IV hydration due to underlying hypervolemia.
[2024-02-16 11:42] LABS: Glucose,Whole Blood 231 mg/dL (70-110)
[2024-02-16] MEDS ORDERED: VERAPAMIL 2.5 MG/ML 2 ML AMP ONE (11:51)
[2024-02-16] MEDS ORDERED: LIDOCAINE 1% INJ 10MG/ML (20 ML MDV) ONE (11:51)
[2024-02-16] MEDS ORDERED: fentaNYL (PF) 50 MCG/ML 2 ML AMP ONE (12:07)
[2024-02-16] MEDS ORDERED: HEPARIN SODIUM 1,000 UN/ML (10ML VL) ONE (12:07)
[2024-02-16] MEDS: SODIUM CHLORIDE 0.9% 1,000 ML IV ONE (12:11)
[2024-02-16] MEDS: fentaNYL (PF) 50 MCG/ML 2 ML AMP IVP ONE (12:19)
[2024-02-16] MEDS: LIDOCAINE 1% INJ 10MG/ML (20 ML MDV) SQ ONE (12:23)
[2024-02-16] MEDS: VERAPAMIL SYRINGE (5 MG/10 ML) INTRAARTER ONE (12:24)
[2024-02-16] MEDS: HEPARIN SODIUM 1,000 UN/ML (10ML VL) IV ONE (12:30)
[2024-02-16] MEDS: IOPAMIDOL-370 100ML BTL INJ ONE (12:34)
[2024-02-16] MEDS ORDERED: RX INFO: IV CONTRAST WAS GIVEN 1 EACH MISC MISCELLANE PRN (12:48)
--- NOTE | 2024-02-16 12:56 | P.CARDCATH ---
Date of Procedure: 02/16/24 Description of Procedure: Cardiac Catheterization: The patient is a 58-year-old female with a history of hypertension, hyperlipidemia, diabetes and history of smoking who presented with symptoms of progressive dyspnea and evidence of acute kidney injury, severe anemia and troponin elevation. She had evidence of severe cardiomyopathy on echocardiography and her MPI showed a severely impaired systolic function with a large defect in the anterior wall. Patient continued to be dyspneic with minimal activity with exertional chest discomfort. Recommendations were made regarding cardiac catheterization, the risks and the complications were discussed with the patient who is in full understanding and agreement. The patient was aware of the risk of causing worsening renal function requiring dialysis. Procedure Description: Patient was brought to photo lab technician in fasting semi-sedated state after receiving Fentanyl and Benadryl achieiving moderate conscious sedated state. Using Xylocaine Anesthesia and modified Seldinger technique, a 6-Serbian sheath was introduced in the right radial artery . Subsequently, selective coronary angiography was performed using a 5-Serbian 3.5 bend Jamison catheter. Multiple views of the coronary artery including hemiaxial views were obtained. The right Jamison catheter was used to cross the aortic valve and LVEDP was calculated. Following that, catheter and sheath were removed. Hemostasis was obtained with deployment of vascular band . There was no immediate complication. Patient was returned to room in stable condition. Of note, the patient received a total of 4000 units of intravenous heparin as well as intra-arterial verapamil. Findings: Fluoroscopy: Calcification of the LAD was noted Left main: This is a large size vessel, bifurcating into left circumflex and LAD, left main has no obstructive disease LAD: This is a large size vessel, reaching to the apex with a wraparound apex segment. The LAD has a 90% stenosis proximally and has sequential tubular long lesion of disease up to 90% after the takeoff of the first diagonal branch. The first diagonal branch is large in caliber and has an 80 to 90% stenosis in the midsegment. Left circumflex: This is a nondominant vessel giving rise to a moderately sized obtuse marginal branch. The mid left circumflex has diffuse intimal disease with a area of stenosis up to 90% prior to the takeoff of the acute marginal. RCA: This is a dominant vessel, moderate in caliber. The mid segment has intimal disease of 50 to 60%. The takeoff of the PDA has a 95% stenosis, the rest of the vessel has no high-grade stenosis Left Ventriculogram: Not performed Hemodynamics: There was no gradient across the aortic valve, LVEDP was 20 mmHg Conclusion: 1. Calcified coronary arteries 2. Severe triple-vessel disease 3. Right dominance 4. Mildly elevated LVEDP Recommendations: I have reviewed the findings with the patient. I would recommend to obtain surgical consultation in view of the severe triple-vessel disease, the cardiomyopathy and the history of diabetes. The patient is aware of the likelihood that dialysis will be needed. The findings and the recommendations were discussed with the patient and a message was left for her son, she was in full understanding and agreement. Duration of sedation is 12 minutes.
[2024-02-16] MEDS: SODIUM CHLORIDE 0.9% 1,000 ML IV SCH (13:05)
--- NOTE | 2024-02-16 15:07 | P.GSCN ---
History of Present Illness Consult date: 02/16/24 Reason for Consult: Severe triple-vessel coronary artery disease, non-STEMI Requesting physician: Yokasta Lane History of present illness: This is a 58-year-old female who does not follow outpatient with a primary care physician. She has a previous medical history of hypertension, hyperlipidemia, hypothyroid, diabetes mellitus, CVA, hepatitis as a child, CKD, previous tobacco dependence with recent cessation, previous methamphetamine use with recent cessation, and family history of coronary artery disease with sister having multiple stents. Apparently for the last couple of weeks the patient has noticed increased shortness of breath and intermittent chest pressure with activity. In addition she endorses being overly tired with any activity. She also endorses lower extremity edema. She presented to [facility] for evaluation and treatment. At the time of admission lab work revealed hemoglobin 7.7, creatinine 2.73, troponin elevation to 2.2, and BNP 25,100. Chest x-ray demonstrated findings consistent with heart failure. She was admitted for treatment with consultation placed to cardiology with subsequent consultations to nephrology, gastroenterology, pulmonology. Transthoracic echocardiogram revealed decreased left ventricular systolic function with EF 20 to 25%, mild pulmonary hypertension, moderate to severe mitral regurgitation, mild aortic insufficiency, and small pericardial effusion. She was treated for 1 week with IV Rocephin. She underwent stress testing yesterday which demonstrated large area of fixed defect involving all segments of myocardium suggestive of remote ischemia, possible tiny area of stress- induced reversibility within the apex. She has been on continuous IV Lasix, and apparently every time the dose is decreased she has increased shortness of breath. She was recommended to undergo heart catheterization which was com pleted today by Dr. Medina and which revealed proximal LAD stenosis 90% with a 6 subsequent sequential tubular long lesion of 90% after the takeoff of the first diagonal branch which itself has an 80 to 90% blockage, 90% mid left circumflex stenosis, and RCA 50 to 60% with takeoff of the PDA demonstrating 95% stenosis. Due to these findings consultation was placed to Dr. Gillette from cardiothoracic surgery for revascularization recommendations. Review of Systems Review of systems was completed and was negative except as noted - Cardiovascular Reports as per HPI, Reports chest pain, Reports dyspnea on exertion, Reports edema, Reports leg edema, Reports shortness of breath Past Medical History Past Medical History: Coronary Artery Disease (CAD), Chest Pain / Angina, Heart Failure, COPD, CVA/TIA, Diabetes Mellitus, Fibromyalgia, GERD/Reflux, Hyperlipidemia, Hypertension, Liver Disease, Myocardial Infarction ([place]), Osteoarthritis (OA), Renal Disease, Thyroid Disorder Additional Past Medical History / Comment(s): NEUROPATHY BILATERAL FEET, DDD NECK AND LOWER BACK, hiatal hernia, states no need for BP med anymore(gets orthostatic hypotension-has "medtronic heart loop monitor"), hx hepatitis as a kid, hx fractrured left wrist, hx stroke 03/03/22-problems with balance since. History of Any Multi-Drug Resistant Organisms: MRSA Year Discovered:: 2018 MDRO Source:: stomach Past Surgical History: Adenoidectomy, Back Surgery, Bladder Surgery, Hysterectomy, Orthopedic Surgery, Tonsillectomy, Tubal Ligation Additional Past Surgical History / Comment(s): Debridement right foot, PICC line placed and later removed, bladder suspension, exploratory laparotomy, right great toe amputation, pins right in foot, cataracts removed, left wrist ORIF, loop heart monitor placed 02/2022. Past Anesthesia/Blood Transfusion Reactions: No Reported Reaction, Motion Sickness Additional Past Anesthesia/Blood Transfusion Reaction / Comm: . Type of Cardiac Device: Loop Past Psychological History: Anxiety, Depression Smoking Status: Former smoker Past Alcohol Use History: Occasional Past Drug Use History: Marijuana, Methamphetamine Additional Drug Use History / Comment(s): States that she last used methamphetamine 2 months ago Additional History: States that she quit smoking approximately 2 months ago - Past Family History Mother Family Medical History: Pulmonary Embolus Additional Family Medical History / Comment(s): . Father Additional Family Medical History / Comment(s): at 26yrs old--accident at work Sister(s) Family Medical History: Coronary Artery Disease (CAD) Medications and Allergies Home Medications Medication Instructions Recorded Confirmed Type Levothyroxine Sodium [Synthroid] 175 mcg PO DAILY 02/02/22 02/06/24 History Acetaminophen Tab [Tylenol] 650 mg PO BID PRN 02/06/24 02/06/24 History Albuterol Nebulized [Ventolin 2.5 mg INHALATION RT-TID PRN 02/06/24 02/06/24 History Nebulized] Atorvastatin [Lipitor] 20 mg PO HS 02/06/24 02/06/24 History Ciclesonide [Alvesco] 1 puff INHALATION RT-BID 02/06/24 02/06/24 History Insulin Glargine [Lantus Vial] 8 unit SQ BID 02/06/24 02/06/24 History Insulin Regular [humuLIN R] 2 units SQ TID PRN 02/06/24 02/06/24 History Insulin Regular [humuLIN R] See Protocol SQ QID 02/06/24 02/06/24 History Ondansetron Hcl 2mg/Ml Injection 4 mg INJ ONCE PRN 02/06/24 02/06/24 History Ondansetron [Zofran] 4 mg PO BID PRN 02/06/24 02/06/24 History traZODone HCL [Desyrel] 50 mg PO HS 02/09/24 02/09/24 History Allergies Allergy/AdvReac Type Severity Reaction Status Date / Time Sulfa (Sulfonamide Allergy see comment Verified 02/06/24 13:59 Antibiotics) Surgical - Exam Vital Signs Temp Pulse Resp BP Pulse Ox 97.6 F 95 18 103/56 97 02/06/24 11:55 02/06/24 11:55 02/06/24 11:55 02/06/24 11:55 02/06/24 11:55 CONSTITUTIONAL: Awake and alert, appears comfortable, cooperative, well- developed, well-nourished, no pain, no acute distress EYES: Pupils equal, round, reactive to light, normal ocular movement ENT: Moist mucous membranes without oral lesions present NECK: No masses, no bruits, trachea midline RESPIRATORY: Lungs sounds clear to auscultation bilaterally. Respirations even, nonlabored. Currently on 2 L nasal cannula with oxygen saturation 94%. Strong cough. No chest wall deformities. No clubbing or cyanosis present CARDIOVASCULAR: S1, S2 present, soft systolic murmur present. Regular rate and rhythm, sinus rhythm on telemetry. Palpable peripheral pulses bilaterally. No edema present. No calf pain or tenderness noted GASTROINTESTINAL: Abdomen soft, nontender, nondistended without masses or organomegaly noted. There is no rebound or guarding present. Active bowel sounds present 4 quadrants. GENITOURINARY: Deferred INTEGUMENTARY: Skin is warm and dry with evidence of good perfusion. NEUROLOGIC: Cranial nerves II through XII intact, normal coordination, no obvious motor or sensory deficits, speech is normal MUSKULOSKELETAL: Able to move all extremities, strength equal bilaterally, normal posture PSYCHIATRIC: Alert and oriented to person place and time, appropriate affect, intact judgment and insight Results - Labs 02/15/24 11:12 02/16/24 07:46 Abnormal Lab Results - Last 24 Hours (Table) 02/15/24 02/15/24 02/16/24 Range/Units 16:40 19:50 06:08 Sodium (137-145) mmol/L BUN (7-17) mg/dL Creatinine (0.52-1.04) mg/dL Glucose (74-99) mg/dL POC Glucose (mg/dL) 306 H 159 H 157 H (70-110) mg/dL Calcium (8.4-10.2) mg/dL 02/16/24 02/16/24 Range/Units 07:46 11:40 Sodium 134 L (137-145) mmol/L BUN 85 H (7-17) mg/dL Creatinine 3.58 H (0.52-1.04) mg/dL Glucose 184 H (74-99) mg/dL POC Glucose (mg/dL) 231 H (70-110) mg/dL Calcium 8.2 L (8.4-10.2) mg/dL Diabetes panel 02/16/24 Range/Units 07:46 Sodium 134 L (137-145) mmol/L Potassium 3.8 (3.5-5.1) mmol/L Chloride 103 (98-107) mmol/L Carbon Dioxide 27 (22-30) mmol/L BUN 85 H (7-17) mg/dL Creatinine 3.58 H (0.52-1.04) mg/dL Glucose 184 H (74-99) mg/dL Calcium 8.2 L (8.4-10.2) mg/dL Calcium panel 02/16/24 Range/Units 07:46 Calcium 8.2 L (8.4-10.2) mg/dL Pituitary panel 02/16/24 Range/Units 07:46 Sodium 134 L (137-145) mmol/L Potassium 3.8 (3.5-5.1) mmol/L Chloride 103 (98-107) mmol/L Carbon Dioxide 27 (22-30) mmol/L BUN 85 H (7-17) mg/dL Creatinine 3.58 H (0.52-1.04) mg/dL Glucose 184 H (74-99) mg/dL Calcium 8.2 L (8.4-10.2) mg/dL Adrenal panel 02/16/24 Range/Units 07:46 Sodium 134 L (137-145) mmol/L Potassium 3.8 (3.5-5.1) mmol/L Chloride 103 (98-107) mmol/L Carbon Dioxide 27 (22-30) mmol/L BUN 85 H (7-17) mg/dL Creatinine 3.58 H (0.52-1.04) mg/dL Glucose 184 H (74-99) mg/dL Calcium 8.2 L (8.4-10.2) mg/dL - Imaging Chest x-ray: report reviewed, image reviewed EKG: image reviewed Assessment and Plan Assessment: Triple-vessel coronary artery disease, non-STEMI this admission Acute heart failure with reduced ejection fraction, 20-25% Moderate to severe mitral regurgitation on transthoracic echocardiogram Acute on chronic kidney disease Acute anemia Hypertension Hyperlipidemia Hypothyroid Diabetes mellitus CVA Hepatitis as a child CKD Previous tobacco dependence with recent cessation Previous methamphetamine use with recent cessation Family history of coronary artery disease with sister having multiple stents Plan: The patient was seen and examined sitting up in bed on the cardiac stepdown unit. She denies pain or shortness of breath at this time. Chart/diagnostics reviewed. The case was discussed in detail between Dr. Gillette and Dr. Lane. The usual perioperative course of open heart surgery was discussed in detail wit h the patient, risks and benefits reviewed, all questions answered. Preoperative teaching initiated. Once completed will calculate STS risk score and discuss with the patient. Recommend continuing ASA, statin, beta alex. Aggressive risk factor management. Increase activity as tolerated. Need [place] to further eval valvular pathology. Will need dental clearence if plan includes valvular repair/replacement, panorex and dental consult ordered. Further recommendations to be made once Dr. Gillette has evaluated the patient. Thank you Dr. Lane for this consult. I have personally seen and examined the patient, performed the documentation and the assessment and plan as written. Number of minutes spent on the visit: 30. TERRENCE Strickland
--- NOTE | 2024-02-16 15:08 | P.PN ---
Subjective Progress Note Date: 02/16/24 Principal diagnosis: Acute hypoxic respiratory failure secondary to acute systolic congestive heart failure and ischemic cardiomyopathy Patient is a 58-year-old white female with past medical history significant for COPD, chronic ongoing tobacco dependence, CVA/TIA, diabetes mellitus, hyperlipidemia, hypertension, hypothyroidism, fibromyalgia, GERD, among other things. Patient [facility] on [facility]24 [facility] with chief complaint of increased lower extremity swelling. She states that she first noted the swelling back in December,. It is progressively worsened, she states she has gained approximately 20 pounds over the last 2 months. Approximately 10 days ago she was awoken at night with substernal chest pain. Nonradiating. With associated shortness of breath and sweating. Lasted up to 15 minutes. She is also had a nonproductive cough. She was noted to be febrile this admission. She is empirically covered on antibiotics. On arrival to the emergency room, she was noted to have elevated troponins of 1.29, 1.76, and 2.2. EKG showed normal sinus rhythm with left bundle branch block, without any other acute ischemic changes. No previous EKG for comparison. She was started on heparin infusion per protocol. She also was on a Nitropaste. Echocardiogram showed a severely impaired left ventricular ejection fraction of 20 to 25%, and moderate to severe mitral regurgitation. Today, she was started on a Lasix infusion at 5 mg/h. Heparin infusion was stopped as the patient is anemic. Patient denies any acute blood loss. No vaginal bleeding. No juan blood in stool. No melena. No nausea or vomiting or hematic emesis. Last colonoscopy was reportedly around 10 years ago. She is currently lying in bed, on 2 L/min nasal cannula. Chest x-ray on admission shows diffuse interstitial edema as well as bilateral consolidation and small effusions. Findings consistent with congestive heart failure. NT proBNP was elevated 25,000. Patient not making much urine despite Lasix infusion. Patient did have 1 episode of fever during her admission with a Tmax of 100.2 F. She was empirically she was empirically placed on Rocephin. Negative for influenza, RSV, COVID. Most recent BMP from today: Sodium 130, potassium 5.1, chloride 104, serum bicarb down to 17, BUN 63, creatinine worsening and 3.34, glucose 229. LFTs mildly elevated. Hepatitis panel nonreactive. Overall, hemodynamically stable. On 02/08/2024, seen the patient for a follow-up. The patient is currently on 3 L of oxygen by nasal cannula with a pulse ox of 94%. She should be able to wean down. She is on Lasix drip at 5 mg an hour and the patient is producing adequ ate amount of urine output. Her fluid balance is negative. As mentioned, the patient is post non-ST segment ovation myocardial infarction the patient is being seen by cardiology. The patient has severe cardiomyopathy with impaired left ventricular ejection fraction. Her blood work from today shows a BUN of 66 with a creatinine of 3.41 and this is consistent with an acute on chronic kidney injury. Sodium levels at 129, potassium is at 4.4 with a WBC count of 6.3 and a hemoglobin of 7.4. The patient is on IV Rocephin as an empiric antibiotic coverage. She is currently afebrile. The patient is being seen by cardiology. The patient will be kept on IV Lasix. Not a candidate for any invasive cardiac workup due to her acute on top of chronic kidney injury at this point in time. Her comorbidities are multiple. Unsure if she does have underlying coronary artery disease. Nevertheless, she has previous history of CVA, diabetes mellitus type 2, hypothyroidism and CHF. She was in penitentiary for being arrested due to possession of amphetamines. Vasculitis workup was negative including a n egative EDSON and a negative P and C ANCA. Hepatitis profile was also negative. On 02/10/2024, the patient is being seen for a follow-up. No new complaints. No significant shortness of breath at rest. Remains on Lasix drip. Producing adequate amount of urine output. Blood work from today was noticed that the patient has a white cell count of 6 with a hemoglobin of 7.2 and a PET scan at 360. BUN 69 with a creatinine of 3.4 and a sodium levels at 129. The patient is being seen by cardiology and nephrology addition. She remains on Lasix drip which will be increased up to 10 mg an hour. Not a candidate for further cardiac catheterization based on underlying renal dysfunction. 02/11/2024, the patient is being seen for a follow-up. No new complaints. Monitor for improvement in her condition. She remains on 2 L of oxygen by nasal cannula. Fluid balance is -90 cc over the past 24 hours. Suboptimal response to diuretics and the patient remains on Lasix at 10 mg an hour. BUN 71 with a creatinine of 3.7, slightly worse compared to yesterday. Sodium is at 131. The patient denies having any chest pain. No significant hypotension. Remains on aspirin. Remains on metoprolol 25 mg p.o. twice a day. Cardiology on the case. She has significant cardiomyopathy. She is post acute non-STEMI. Not a candidate for cardiac catheterization due to renal impairment. The patient is seen today February 12, 2024 in follow-up on the selective care unit. She is currently sitting up in bed. Awake and alert in no acute distress. She is maintaining O2 saturation in the 90s on 3 L nasal cannula. She is afebrile. Hemodynamically stable. Today's chest x-ray reviewed reveals diffuse bilateral infiltrates with small effusion or early congestive heart failure. Hemoglobin 6.7. 1 unit of packed blood cells have been ordered. Platelets 362. White count 6.1. Sodium 131. Potassium 4.2. Bicarb 21. BUN 80. Creatinine 3.89. Glucose 286. She remains on. Antibiotics in the form of ceftriaxone. Remains on a Lasix drip at 5 mg an hour. Currently in a -178 mL balance. The patient is seen today February 13, 2024 in follow-up on the selective care unit. She is awake and alert in no acute distress. Sitting up in bed. Blood and urine cultures revealed no growth. White count 6.2. Hemoglobin 7.4. Platelets 01/05/1978. Sodium 133. Potassium 3.9. Bicarb 21. BUN 83. Creatinine 3.60. Glucose 154. She remains on a Lasix drip currently at 5 mg/h. She remains on a heparin drip. Receiving sodium bicarb tablets. Continued on bronchodilators. Continued on antibiotics in the form of ceftriaxone. She is currently in a negative balance. Voided 1 L today. The patient is seen today February 14, 2024 in follow-up on the selective care unit. She is currently sitting up in bed. Awake and alert in no acute distress. She is maintaining good O2 saturations in the 90s on 3 L/min per nasal cannula. She is afebrile. Hemodynamically stable. Follow-up chest x-ray continues to show diffuse bilateral infiltrate with small effusions. She is status post 1 unit of packed red blood cells this admission. Last hemoglobin 7.7. Sodium 135. Potassium 4.6. Bicarb 20. BUN 87. Creatinine 3.55. Glucose 358. She is continued on bronchodilators. Antibiotics in form of ceftriaxone. She remains on a Lasix drip at 10 mg/h. Receiving sodium bicarb tablets. Currently -688 mL balance. Nephrology is following. The patient is seen today February 15, 2024 in follow-up on the selective care unit. She is currently sitting up in bed awake and alert in no acute distress. She is maintaining O2 saturations in the mid 90s on 2 L/min per nasal cannula. She is afebrile. Hemodynamically stable. White count 6.8. Hemoglobin 8.6. Platelets 438. Sodium 135. Potassium 4.0. Bicarb 21. BUN 84. Creatinine 3.41. Glucose 171. She remains on a Lasix drip at 10 mg/h. Continued on a heparin drip. Plan to -1 L balance. Stress testing today reveals a large area of fixed defect involving all segments of the myocardium suggestive of remote ischemia. Could not exclude a tiny area of stress-induced reversibility within the apex. Reduced wall motion activity with ejection fraction of only 21%. Patient was seen and examined today on 02/16/2024 patient is feeling better today, continues to diurese with a Lasix drip, remains in negative fluid balance, patient underwent cardiac catheterization today and she was found to have severe triple-vessel coronary artery disease, now she is being evaluated by surgery, patient does have severe LV dysfunction, she is definitely high surgical risk, but no absolute contraindication to surgery.Basic metabolic profile is normal BUN is 85 creatinine 3.58 however the patient may require hemodialysis, and she will need nephrology clearance she will also need a bedside spirometry/FEV1 for preoperative pulmonary clearance in the meantime we will continue diuretics/Lasix drip Objective - Vital Signs Vital signs: Vital Signs Temp 98.2 F 02/16/24 13:33 Pulse 96 02/16/24 10:17 Resp 18 02/16/24 13:33 BP 113/59 02/16/24 13:33 Pulse Ox 94 L 02/16/24 13:33 FiO2 Intake & Output 02/15/24 02/16/24 02/16/24 18:59 06:59 18:59 Intake Total 758 80.667 50 Output Total 750 1200 850 Balance 8 1119.333 -800 Intake: IV 50 Intake, IV Titration 100 80.667 Amount Furosemide 100 mg In 100 80.667 Sodium Chloride 0.9% 90 ml @ 10 MG/HR 10 mls/hr IV .Q10H [facility] Rx#: [id number] Oral 658 Output: Urine 750 1200 850 Other: Voiding Method Indwelling Catheter Indwelling Catheter Indwelling Catheter - Exam GENERAL EXAM: Alert, 58-year-old female, sitting up in bed, on 2 L nasal cannula HEAD: Normocephalic and atraumatic EYES: Normal reaction of pupils, equal size. NOSE: Clear with pink turbinates. THROAT: No erythema or exudates. NECK: No masses, no JVD. CHEST: No chest wall deformity. LUNGS: Equal air entry with bibasilar crackles and mild and expiratory wheezes heard bilaterally. CVS: S1 and S2 normal with no audible murmur, regular rhythm. No extra heart sounds ABDOMEN: No hepatosplenomegaly, active bowel sounds, no guarding or rigidity. SKIN: No rashes CENTRAL NERVOUS SYSTEM: Alert oriented x 3 no gross focal deficit EXTREMITIES: Trace of bipedal edema - Labs CBC & Chem 7: 02/15/24 11:12 02/16/24 07:46 Labs: Abnormal Lab Results - Last 24 Hours (Table) 02/15/24 02/15/24 02/16/24 Range/Units 16:40 19:50 06:08 Sodium (137-145) mmol/L BUN (7-17) mg/dL Creatinine (0.52-1.04) mg/dL Glucose (74-99) mg/dL POC Glucose (mg/dL) 306 H 159 H 157 H (70-110) mg/dL Calcium (8.4-10.2) mg/dL 02/16/24 02/16/24 Range/Units 07:46 11:40 Sodium 134 L (137-145) mmol/L BUN 85 H (7-17) mg/dL Creatinine 3.58 H (0.52-1.04) mg/dL Glucose 184 H (74-99) mg/dL POC Glucose (mg/dL) 231 H (70-110) mg/dL Calcium 8.2 L (8.4-10.2) mg/dL Assessment and Plan Assessment: Impression: Severe triple-vessel coronary artery disease based on cardiac catheterization today 02/16/2024 Acute non-ST elevation [place]. Stress testing today 02/15/2024 reveals a large area of fixed defect involving all segments of the myocardium suggestive of remote ischemia. Cannot exclude a tiny area of stress-induced reversibility within the apex. Reduced wall motion activity with ejection fraction of only 21%. Remains on heparin drip. Acute hypoxemic respiratory failure, currently on 2 L/min nasal cannula, secondary to exacerbation of systolic congestive heart failure and above, Chest x-ray on admission shows diffuse interstitial edema as well as bilateral consolidation and small effusions. Findings consistent with congestive heart failure, however, superimposed community-acquired bibasilar pneumonia is not excluded. Ischemic cardiomyopathy with an estimated left ventricular ejection fraction severely impaired at 20 to 25% as well as moderate to severe mitral valve regurgitation, currently on Lasix infusion at 5 mg/h, responding to diuresis with Lasix drip. Negative fluid balance. Severe mitral valve regurgitation Acute febrile illness, recovered Normocytic normochromic anemia, current hemoglobin 7.4, received 1 unit of packed red blood cell Acute kidney injury, likely cardiorenal, worsening creatinine, the patient is producing adequate amount of urine output Metabolic non-anion gap acidosis, secondary to above Chronic obstructive pulmonary disease, stable Diabetes mellitus type 1 History of hyperlipidemia History of hypertension History of CVA/TIA History of hypothyroidism History of fibromyalgia History of GERD Mildly elevated LFTs, hepatitis panel nonreactive Former tobacco smoker, 1/2 pack/day or approximately 15-year pack history Recommendation: Continue present supportive care measures Continue Lasix drip Patient will be seen by cardiothoracic surgery for possible CABG Nephrology to clear for potential surgery if to be done. Patient is definitely extremely high surgical risk, but no absolute indication to surgery from the pulmonary perspective. Patient will have a bedside FEV1/PFT Continue fluid restriction 1200 mL/day Continue anticoagulation therapy/heparin Will continue to follow Time with Patient: Less than 30
--- NOTE | 2024-02-16 15:24 | US ---
EXAMINATION TYPE: US carotid duplex BILAT DATE OF EXAM: 02/16/2024 COMPARISON: NONE CLINICAL INDICATION: Female, 58 years old with history of preop cardiac surgery; Dizzy, light headed, HTN, DM, Pneumonia, COPD, Hx smoker, TECHNIQUE: Carotid duplex ultrasound examination. Indirect Doppler criteria was utilized. FINDINGS: EXAM MEASUREMENTS: RIGHT: Peak Systolic Velocity (PSV) cm/sec ----- Right CCA: 97 ----- Right ICA: 94 ----- Right ECA: 125 ICA/CCA ratio: 0.96 RIGHT: End Diastole cm/sec ----- Right CCA: 21 ----- Right ICA: 18 ----- Right ECA: 19 LEFT: Peak Systolic Velocity (PSV) cm/sec ----- Left CCA: 82 ----- Left ICA: 88 ----- Left ECA: 125 ICA/CCA ratio: 1.1 LEFT: End Diastole cm/sec ----- Left CCA: 12 ----- Left ICA: 16 ----- Left ECA: 14 VERTEBRALS (direction of flow): Right Vertebral: Antegrade Left Vertebral: Antegrade Rhythm: Normal RN DELIVERY NOTES: Some plaque noted bilateral CCA bulbs, no intimal thickening or elevated velocitie s noted. IMPRESSION: Bilateral atherosclerotic plaque with no significant hemodynamic stenosis. Criteria for Assigning % of Stenosis / Diameter reduction (Estimation based on the indirect measurements of the internal carotid artery velocities (ICA PSV). 1. Normal (no stenosis)=ICA PSV < 125 cm/s: ratio < 2.0: ICA EDV<40 cm/s. 2. Less than 50% stenosis=ICA PSV < 125 cm/s: ratio < 2.0: ICA EDV<40 cm/s. 3. 50 to 69% stenosis=ICA PSV of 125 to 230 cm/s: ration 2.0 ? 4.0: ICA EDV 40-100 cm/s. 4. Greater than 70% stenosis to near occlusion= ICA PSV > 230 cm/s: ratio > 4.0: ICA EDV > 100 cm/s. 5. Near occlusion= ICA PSV velocities may be low or undetectable: variable ratio and ICA EDV. 6. Total occlusion=unable to detect flow.
--- NOTE | 2024-02-16 15:24 | US ---
EXAMINATION TYPE: US vein mapping BILAT DATE OF EXAM: 02/16/2024 3:06 PM COMPARISON: NONE CLINICAL INDICATION: Female, 58 years old with history of preop cardiac surgery; SIDE PERFORMED: Bilateral TECHNIQUE: Lower extremity saphenous vein is examined and measured utilizing real time linear array sonography. Patient History: Smoker: Yes Heart Disease: Yes Previous DVT: No Vascular Surgery: Yes Discoloration: No Hypertension: Yes Diabetes: Yes Paralysis: No Varicosities: No Edema: No Measurements in mm: Right Greater Saphenous: Groin: 8.0 x 8.3 mm High Thigh: 5.8 x 5.4 mm Mid Thigh: 3.7 x 4.3 mm Above Knee: 3.6 x 3.2 mm Knee: 4.6 x 5.9 mm Below Knee: 2.8 x 3.6 mm Mid Calf: 2.6 x 3.0 mm At Ankle: 2.6 x 2.8 mm Left Greater Saphenous: Groin: 6.8 x 7.5 mm High Thigh: 4.2 x 5.2 mm Mid Thigh: 4.5 x 4.4 mm Above Knee: 3.5 x 4.7 mm Knee: 3.6 x 4.4 mm Below Knee: 3.7 x 3.9 mm Mid Calf: 2.6 x 2.7 mm At Ankle: 2.4 x 3.4 mm IMPRESSION: 1. Bilateral GSV measurements listed above. 2. Performing surgeon to determine viability as conduit.
--- NOTE | 2024-02-16 15:25 | US ---
EXAMINATION TYPE: Pre-Operative Non-Invasive Evaluation of the hand for Potential Radial Artery Richard , Measurements only DATE OF EXAM: 02/16/2024 3:06 PM CLINICAL INDICATION: Female, 58 years old with history of measurements only; Dizziness, Light headed, HTN, DM, Right arm approach showed blockage, Pneumonia, COPD, Hx Smoker, SIDE PERFORMED: Left TECHNIQUE: Radial artery is measured utilizing real time linear array sonography. Dominant hand: Right Duplex Findings: Radial Artery: Color flow seen Measurements in mm, transverse view: Left Radial: 2.3 x 3.4 mm Proximal: 2.7 x 3.4 mm Mid: 2.9 x 3.0 mm Distal: 2.8 x 3.5 mm IMPRESSION: 1. Bilateral Radial artery measurements listed above. 2. Performing surgeon to determine viability as conduit.
--- NOTE | 2024-02-16 15:47 | P.PN ---
Subjective Progress Note Date: 02/16/24 HISTORY OF PRESENT ILLNESS: This is a 58-year-old female with a past medical history significant for former nicotine dependence, hypertension, CVA, hypothyroidism, and diabetes. Patient follows in the office with Dr. Saunders and was last seen in May 2023. We have been asked to see the patient in consultation for non-STEMI and CHF. Patient examined at the bedside in the emergency room. Patient is currently incarcerated and there is a treating plant operator at the bedside. Patient states she has been feeling short of breath and feeling weak. She states this started about 2 days ago. She states that she was in court and afterwards they had to use a wheelchair to get her back into the vehicle as she was too weak to walk. She also reports feeling dizzy and having pounding in her chest. She reports a sli ght cough. She denied having a fever previously to her knowledge. However patient was febrile this morning with a temperature of 100.2. She also reports lower extremity edema that started in the middle of December. She reports nausea yesterday that was relieved with Zofran. Patient was found to be anemic on admission with a hemoglobin of 7.7. Repeat 7.1. Last hemoglobin was back in 2021 but was normal at 12.3. The patient denies a history of anemia. Unsure if this anemia is new or has been present for a while as her last blood work was not since 2021. She denies any blood in her stool or urine. She does report decreased urine output. Patient was also found to have acute kidney injury with a creatinine of 2.96. Back in 2021, patient's kidney function was within normal limits. Patient was also found to have elevated troponins and was started on IV heparin. She denied having any chest pain or pressure. Patient is a former cigarette smoker and has not smoked in 55 days since being in long term. She denies alcohol abuse many years ago but nothing recently. She denies drug use in cluding marijuana. DIAGNOSTICS: - EKG reveals sinus mechanism with left bundle branch block. - Chest xray consolation of findings favor CHF over pneumonia. Correlate clinically. Underlying COPD. Loop recorder device seen. Bilateral consolidation and small effusion with diffuse interstitial pattern.. - Laboratory data: WBC 6.2. Hemoglobin 7.1. Platelet count 300. Sodium 133. Potassium 4.9. BUN 56. Creatinine 2.96. AST 55. ALT 35. proBNP 25,100. Troponin 1.290. 1.760. 2.210. - Current home cardiac medications include Lipitor 20 mg at night. - Most recent echocardiogram obtained in February 2022 revealed ejection fraction 55 to 60%, mild MR, mild TR - Patient underwent dobutamine stress test in March 2023 at the office which was negative for ischemia 02/08/2024 Patient examined this morning at the bedside. Patient states her shortness of breath has improved today. She complains of mild chest discomfort when she feels short of breath. She states the chest pain is worse with deep inspiration. Her lower extremity edema has improved from yesterday. She has been transition to IV Lasix drip per nephrology. Echocardiogram completed revealing ejection fraction 20 to 25%, mild pulm hypertension, moderate to severe mitral regurgitation, mild aortic regurgitation, trace to mild tricuspid regurgitation and small pericardial effusion. 02/09/2024 Patient examined this morning at the bedside. Patient continues to report shortness of breath at the time of examination. She reports that she developed a cough also today. She reports chest discomfort that is worse with deep insp iration. She remains on a Lasix drip at 5 mg an hour. Creatinine 3.41. Hemoglobin 7.4. Blood pressure is stable. Telemetry reveals sinus mechanism. 02/10/2024 Patient examined this morning at the bedside. Patient continues to report shortness of breath. She continues to have a cough. She denies any chest discomfort at the time of examination. She remains on a Lasix drip at 5 mg an hour. Creatinine today is 3.44. Hemoglobin 7.2. 02/11/2024 Patient examined this morning at the bedside. Patient reports that she slept well overnight. She currently denies any chest pain or pressure. She reports improvement in her shortness of breath and also with her cough. Renal function worsened today at 3.71. She remains on IV Lasix at 10 mg an hour. 02/11 Patient seen and examined. Patient still minutes to significant shortness breath mainly with exertion. She occasionally has some chest tightness however not clearly associated with exertion and more feels like she cannot take a deep breath in. Creatinine stable at 3.8. She is receiving 1 unit of packed red blood cell for hemoglobin 6.7. Remains on IV diuretics. 02/12 Patient is seen today in follow-up. She states she may feel a little bit better after blood transfusion but continues to feel tired, shortness of breath have some chest pain with exertion. Blood pressure 125/80, heart rate between 72 and 91, pulse ox 95% on room air. Repeat blood work reveals hemoglobin 7.4. BUN 83 creatinine 2.6. Discussed option of stress test in the next 1 to 2 days and patient is agreeable for this. 02/13 Patient complains of feeling tired, upset stomach. She has shortness of breath with minimal activity. She had an episode of chest pain last night but none now. Renal function is worsening with BUN of 87 creatinine 3.55. Sodium 135, potassium 4.6. 02/14 Lexiscan Cardiolite stress test came back abnormal with large area of fixed defect involving all segments of the myocardium suggestive of remote ischemia. Cannot exclude a tiny area of stress induced reversibility within the apex. Reduced wall motion activity with EF of only 21%. Results reviewed with patient and next option with cardiac catheterization discussed with the patient with understanding that patient does have abnormal renal function and would need to be cleared by nephrology. Dr. Berman will contact Dr. Lane regarding possible cardiac catheterization. Blood pressure 143/84, heart rate 93, pulse ox 95% on 2 L nasal cannula. Patient remains on IV Lasix drip at 10 mg/h. She has a negative fluid balance. She is on a fluid restriction of 1200 mL 02/15 Patient underwent cardiac catheterization today with Dr. Lane which revealed calcified coronary arteries. Severe triple-vessel disease. Right dominance. Mildly elevated LVEDP. She has been seen by CTS with tentative plan for CABG on Monday pending results of AFRICA. Patient will be scheduled tomorrow for AFRICA with Dr. Berman. Blood pressure 113/59, heart rate 96, pulse ox 93% on 2 L nasal cannula. Repeat blood work reveals BUN 85 creatinine 3.58. PHYSICAL EXAM: VITAL SIGNS: Reviewed. GENERAL: Well-developed in no acute distress. HEENT: Head is normocephalic. Pupils are equal, round. Sclerae anicteric. Mucous membranes of the mouth are moist. Neck supple. No JVD or thyromegaly LUNGS: Respirations even and unlabored. Lungs essentially clear to auscultation bilaterally. HEART: Regular rate and rhythm. S1 and S2 heard. ABDOMEN: Soft. Nondistended. Nontender. EXTREMITIES: No clubbing or cyanosis. Peripheral pulses intact. 2+ bilateral lower extremity edema NEUROLOGIC: Awake and alert. Oriented x 3. ASSESSMENT: Febrile illness Shortness of breath Acute heart failure with reduced EF, 20 to 25% New onset cardiomyopathy, ischemic Non-STEMI Left bundle branch block Acute kidney injury, renal function was fairly normal in 2021 Anemia, acute anemia versus anemia of chronic disease due to renal failure, duration of anemia/EDWINA unknown History of hypertension History of CVA x 2 Diabetes Hypothyroidism Former nicotine dependence Minimally elevated LFTs PLAN: Continue current cardiac medications Nephrology following. Continue IV Lasix infusion per nephrology. Daily weights, accurate intake and output, and monitoring of kidney function Patient will be scheduled tomorrow for AFRICA with Dr. Berman. Consult with CTS appreciated. Tentatively scheduled for CABG on Monday. Further recommendations pending patient course. Nurse practitioner note has been reviewed, I agree with documented findings and plan of care. Patient was seen and examined. Objective - Vital Signs Vital signs: Vital Signs Temp 98.2 F 02/16/24 13:33 Pulse 96 02/16/24 10:17 Resp 18 02/16/24 13:33 BP 113/59 02/16/24 13:33 Pulse Ox 94 L 02/16/24 13:33 FiO2 Intake & Output 02/15/24 02/16/24 02/16/24 18:59 06:59 18:59 Intake Total 758 80.667 50 Output Total 750 1200 850 Balance 8 -1119.333 -800 Intake: IV 50 Intake, IV Titration 100 80.667 Amount Furosemide 100 mg In 100 80.667 Sodium Chloride 0.9% 90 ml @ 10 MG/HR 10 mls/hr IV .Q10H [facility] Rx#: [id number] Oral 658 Output: Urine 750 1200 850 Other: Voiding Method Indwelling Catheter Indwelling Catheter Indwelling Catheter - Labs CBC & Chem 7: 02/15/24 11:12 02/16/24 07:46 Labs: Abnormal Lab Results - Last 24 Hours (Table) 02/15/24 02/15/24 02/16/24 Range/Units 16:40 19:50 06:08 Sodium (137-145) mmol/L BUN (7-17) mg/dL Creatinine (0.52-1.04) mg/dL Glucose (74-99) mg/dL POC Glucose (mg/dL) 306 H 159 H 157 H (70-110) mg/dL Calcium (8.4-10.2) mg/dL 02/16/24 02/16/24 Range/Units 07:46 11:40 Sodium 134 L (137-145) mmol/L BUN 85 H (7-17) mg/dL Creatinine 3.58 H (0.52-1.04) mg/dL Glucose 184 H (74-99) mg/dL POC Glucose (mg/dL) 231 H (70-110) mg/dL Calcium 8.2 L (8.4-10.2) mg/dL
--- NOTE | 2024-02-16 16:17 | P.PN ---
Subjective Progress Note Date: 02/16/24 58 years old female with past medical history of multiple medical problems as below She has been incarcerated for 52 days, there is officer at bedside. Patient presents because of shortness of breath and exertional dyspnea has for the last 2 days, she states she hears herself wheezing when she lies down. Currently she is breathing quietly. She is complaining for mild chest pain on the left side, nonradiating nonspecific, feels much better now and very mild. She follow-up with her motorcycle subassembly repairer Dr. Donal Herrera and printing grey cloth tender Dr. Babb who examined her about 2 months ago where she has some mild ulcer In the bottom of her right total This morning patient has low-grade fever 100.2 She is also mildly tachypneic around 22 She is saturating 93% on 2 L oxygen via nasal cannula Labs reviewed showing hemoglobin of 7.7, rest of CBC is unremarkable BMP liver enzymes not elevated. INR 0.9. Lactic 0.9 proBNP is elevated 25 100 EKG showing sinus rhythm at [address]-T changes, no left bundle branch block Objective - Vital Signs Vital signs: Vital Signs Temp 98.0 F 02/16/24 09:44 Pulse 96 02/16/24 10:17 Resp 20 02/16/24 09:44 BP 130/70 02/16/24 09:44 Pulse Ox 93 L 02/16/24 09:44 FiO2 Intake & Output 02/15/24 02/16/24 02/16/24 18:59 06:59 18:59 Intake Total 758 80.667 Output Total 750 1200 Balance 8 -1119.333 Intake: Intake, IV Titration 100 80.667 Amount Furosemide 100 mg In 100 80.667 Sodium Chloride 0.9% 90 ml @ 10 MG/HR 10 mls/hr IV .Q10H [id number] Rx#: [id number] Oral 658 Output: Urine 750 1200 Other: Voiding Method Indwelling Catheter Indwelling Catheter - Exam GENERAL: The patient is alert and oriented x3, not in any acute distress. Ill appearance, pale appearing HEENT: Pupils are round and equally reacting to light. EOMI. Normocephalic, atraumatic. No pharyngeal erythema. No thyromegaly. CARDIOVASCULAR: S1 and S2 present. No murmurs, rubs, or gallops. PULMONARY: Decreased breath sounds bilaterally ABDOMEN: Soft, nontender, nondistended, normoactive bowel sounds. No palpable organomegaly. Saldaña catheter in place MUSCULOSKELETAL: No joint swelling or deformity. EXTREMITIES: No cyanosis, clubbing, 1+ bilateral pitting leg edema. NEUROLOGICAL: Gross neurological examination did not reveal any focal deficits. - Labs CBC & Chem 7: 02/15/24 11:12 02/16/24 07:46 Labs: Abnormal Lab Results - Last 24 Hours (Table) 02/15/24 02/15/24 02/15/24 Range/Units 11:12 11:12 11:41 RBC 2.79 L (3.80-5.40) m/uL Hgb 8.6 L (11.4-16.0) gm/dL Hct 27.6 L (34.0-46.0) % Sodium 135 L (137-145) mmol/L Carbon Dioxide 21 L (22-30) mmol/L BUN 84 H (7-17) mg/dL Creatinine 3.41 H (0.52-1.04) mg/dL Glucose 171 H (74-99) mg/dL POC Glucose (mg/dL) 212 H (70-110) mg/dL Calcium (8.4-10.2) mg/dL 02/15/24 02/15/24 02/16/24 Range/Units 16:40 19:50 06:08 RBC (3.80-5.40) m/uL Hgb (11.4-16.0) gm/dL Hct (34.0-46.0) % Sodium (137-145) mmol/L Carbon Dioxide (22-30) mmol/L BUN (7-17) mg/dL Creatinine (0.52-1.04) mg/dL Glucose (74-99) mg/dL POC Glucose (mg/dL) 306 H 159 H 157 H (70-110) mg/dL Calcium (8.4-10.2) mg/dL 02/16/24 Range/Units 07:46 RBC (3.80-5.40) m/uL Hgb (11.4-16.0) gm/dL Hct (34.0-46.0) % Sodium 134 L (137-145) mmol/L Carbon Dioxide (22-30) mmol/L BUN 85 H (7-17) mg/dL Creatinine 3.58 H (0.52-1.04) mg/dL Glucose 184 H (74-99) mg/dL POC Glucose (mg/dL) (70-110) mg/dL Calcium 8.2 L (8.4-10.2) mg/dL Assessment and Plan Assessment: Acute congestive heart failure with systolic dysfunction ejection fraction of 20-25 % New onset cardiomyopathy. Ischemic versus nonischemic. Acute hypoxemic respiratory failure multifactorial CHF, multifocal pneumonia. Multifocal pneumonia Non-ST elevated [place] Acute kidney injury due to ATN secondary to cardiorenal. Patient is nonoliguric Acute on chronic anemia of chronic disease Acute urinary tract infection, urine culture showing skin or genital kwesi Chronic kidney disease stage II with acute kidney injury Urinary retention status post Saldaña catheter placement Diabetes mellitus type 2 Plan: In regards to hypoxemic respiratory failure, CHF exacerbation, continue patient on IV Lasix drip, continue to monitor intake and output continue with fluid restriction. Regards to multifocal pneumonia procalcitonin elevated continue. Completed ceftriaxone for 5 days on 02/13/2024 In regards to elevated troponin, continue current management medically, not a candidate for cardiac catheterization secondary to renal failure and anemia. Lexiscan stress test was done today.. In regards to diabetes mellitus Accu-Cheks ACHS continue patient on correctional insulin, NovoLog and Levemir In regards to anemia, continue to monitor H&H transfuse if hemoglobin less than 7, 1 unit of packed RBC ordered, fecal occult blood test ordered. Continue to titrate oxygen to room air.
[2024-02-16 16:41] LABS: Glucose,Whole Blood 134 mg/dL (70-110)
--- NOTE | 2024-02-16 16:50 | CT ---
EXAMINATION TYPE: CT chest wo con DATE OF EXAM: 02/16/2024 COMPARISON: None HISTORY: eval aorta for clampability CT DLP: 376.2 mGycm. Automated Exposure Control for Dose Reduction was Utilized. TECHNIQUE: CT scan of the thorax is performed without IV contrast. FINDINGS: There are moderate to large bilateral pleural effusions. There are scattered partially consolidative and interstitial infiltrates. There is dilatation of the main pulmonary artery which measures 3.8 cm in transverse diameter. There is no aneurysmal dilatation of the thoracic aorta. There is mild atherosclerotic calcification in the thoracic arch. There is no mediastinal, hilar or axillary adenopathy. Limited scanning through the upper abdomen reveals no gross abnormality. The osseous structures are intact. IMPRESSION: 1. Moderate to large bilateral pleural effusions. 2. Bilateral diffuse consolidative and interstitial infiltrates consistent with acute pneumonic proce ss or pulmonary edema. 3. Dilated main pulmonary artery consistent with pulmonary hypertension 4. No aneurysm of thoracic aorta.
--- NOTE | 2024-02-16 16:53 | CT ---
EXAMINATION TYPE: CT facial bones wo con DATE OF EXAM: 02/16/2024 COMPARISON: X-ray same day HISTORY: 58-year-old female preop valve surgery TECHNIQUE: Contiguous axial scanning of the facial bones without IV contrast. Coronal and sagittal re constructions performed. CT DLP: 500.5 mGycm Automated exposure control for dose reduction was used. FINDINGS: Dental caries involving the right mandibular first molar and erosive destruction of nearly the entire right second molar. Dental caries involving the left mandibular first and second molars. Erosive destruction of half of t he crown of the left first mandibular molar. No sizable. Lucency is seen. Slight leftward nasoseptal deviation. Paranasal sinuses are well pneumatized. Some fluid within the inferior left mastoid air cells. Orbital globes are intact. IMPRESSION: 1. MULTIPLE MANDIBULAR DENTAL CARIES ABOVE. SEVERE OSSEOUS DESTRUCTION OF THE RIGHT MANDIBULAR SEC OND MOLAR. LESSER DEGREE OF EROSIVE DESTRUCTION OF THE LEFT FIRST MANDIBULAR MOLAR. No sizable periap ical lucency. 2. Some fluid within the inferior left mastoid air cells. Correlate for any mastoid mastoiditis.
--- NOTE | 2024-02-16 19:18 | CA ---
Lexiscan Nuclear Stress Test Report Name: Mila Camilo Exam Date: 02/15/2024 09:20 Exam Location: [facility] Ht (in): 68 Wt (lb): 169 BSA: 1.90 Ordering Phys: Shilpi Dillon Referring Phys: OBDULIO, Technologist: Juan Antonio Bahena Age: 58 Gender: F : 1965 Procedure CPT: Indications: Reflex order-Stress test ICD-10 Codes: Patient History: CHEST PAIN, DIFFICULTY IN BREATHING, HTN, DIABETIC, PRIOR STROKE, HYPERCHOLESTEROLEMIA, CURRENT SMOKER, COPD Medications: Meds past 24 hrs: Pretest Chest Pain: STRESS TEST Lexiscan Protocol Exercise Duration (min:sec): 02:[address] Depressions (mm): Angina Score: Jimenez Score: Resting HR (bpm): 87 Peak HR (bpm): 92 Resting BP (mmHg): 121 / 67 Peak BP (mmHg): 121 / 67 MPHR: 161 Target HR: 137 % MPHR: 57 METS: 1.0 Total Dose: Peak Dose: Atropine: Double Product: 39255 BP Response: Stress Termination: INFUSION COMPLETE Stress Symptoms: DIFFICULTY IN BREATHING Stress Summary: ECG ANALYSIS Resting ECG: Stress ECG: CONCLUSIONS Nondiagnostic stress testing Dr. Clinton Pitts MD (Electronically Signed) Final Date: 16 Feb 2024 19:17
[2024-02-16 20:17] LABS: Glucose,Whole Blood 112 mg/dL (70-110)
[2024-02-17 06:29] LABS: Glucose,Whole Blood 131 mg/dL (70-110)
--- NOTE | 2024-02-17 07:57 | P.PN ---
Subjective Progress Note Date: 02/17/24 Principal diagnosis: Triple-vessel coronary artery disease, non-STEMI this admission, acute heart failure with reduced ejection fraction, new onset ischemic cardiomyopathy, moderate to severe mitral regurgitation, acute on chronic kidney disease, acute anemia. History of hypertension, hyperlipidemia, hypothyroid, diabetes mellitus, CVA, hepatitis as a child, CKD stage IV, previous tobacco dependence with recent cessation, severe COPD, previous methamphetamine use with recent cessation, family history of coronary artery disease The patient was seen and examined this morning laying in bed on the cardiac stepdown unit in no acute distress, public safety police present. The patient was seen by Dr. Gillette yesterday with recommendations for coronary artery bypass surgery +/- mitral valve repair dependent on AFRICA scheduled today. We did complete preoperative testing and patient does have a high STS risk for mortality. Will recalculate STS risk score after AFRICA is completed. Will complete 5 m walk test in the next 24 hours. Patient currently denies any chest pain or increased shortness of breath. She does state her shortness of breath gets worse with any activity, bilateral pleural effusions found on CT scan, remains on continuous IV Lasix. Objective - Vital Signs Vital signs: Vital Signs Temp 97.7 F 02/17/24 05:16 Pulse 82 02/17/24 05:16 Resp 17 02/17/24 05:16 BP 136/71 02/17/24 05:16 Pulse Ox 92 L 02/17/24 05:16 FiO2 Intake & Output 02/16/24 02/17/24 02/17/24 18:59 06:59 18:59 Intake Total 150 Output Total 1250 700 Balance -1100 -700 Weight 76 kg Intake: IV 50 Intake, IV Titration 100 Amount Furosemide 100 mg In 100 Sodium Chloride 0.9% 90 ml @ 10 MG/HR 10 mls/hr IV .Q10H [facility] Rx#: [id number] Output: Urine 1250 700 Other: Voiding Method Indwelling Catheter Indwelling Catheter - Exam CONSTITUTIONAL: Appears comfortable, cooperative, no acute distress RESPIRATORY: Lungs sounds diminished bilaterally. Respirations even, nonlabored. Currently on 2 L nasal cannula with oxygen saturation 92%. Able to achieve 750 mL on incentive spirometry. Strong cough. CARDIOVASCULAR: S1, S2 present. Regular rate and rhythm, sinus rhythm on telemetry. Palpable peripheral pulses bilaterally. No edema present. No calf pain or tenderness noted GASTROINTESTINAL: Abdomen soft, nontender, nondistended. Active bowel sounds present 4 quadrants. Tolerating diet GENITOURINARY: Saldaña present draining clear, yellow urine. Output overnight 1950 mL in the last 24 hours INTEGUMENTARY: Skin is warm and dry NEUROLOGIC: Cranial nerves II through XII intact MUSKULOSKELETAL: Able to move all extremities, strength equal bilaterally PSYCHIATRIC: Alert and oriented to person place and time, appropriate affect, intact judgment and insight - Allied health notes Allied health notes reviewed: nursing - Labs CBC & Chem 7: 02/15/24 11:12 02/16/24 07:46 Labs: Abnormal Lab Results - Last 24 Hours (Table) 02/16/24 02/16/24 02/16/24 Range/Units 07:46 11:40 16:39 Sodium 134 L (137-145) mmol/L BUN 85 H (7-17) mg/dL Creatinine 3.58 H (0.52-1.04) mg/dL Glucose 184 H (74-99) mg/dL POC Glucose (mg/dL) 231 H 134 H (70-110) mg/dL Calcium 8.2 L (8.4-10.2) mg/dL 02/16/24 02/17/24 Range/Units 20:11 06:10 Sodium (137-145) mmol/L BUN (7-17) mg/dL Creatinine (0.52-1.04) mg/dL Glucose (74-99) mg/dL POC Glucose (mg/dL) 112 H 131 H (70-110) mg/dL Calcium (8.4-10.2) mg/dL - Imaging and Cardiology CT scan - chest: report reviewed, image reviewed Heart catheterization and transthoracic echocardiogram films were reviewed with Dr. Gillette yesterday, carotid Dopplers/bedside spirometry/chest CT/Panorex/vein and radial artery mapping reviewed Assessment and Plan Assessment: Triple-vessel coronary artery disease, non-STEMI this admission Acute heart failure with reduced ejection fraction, 20-25% New onset ischemic cardiomyopathy Moderate to severe mitral regurgitation on transthoracic echocardiogram Acute on chronic kidney disease Acute anemia Hypertension Hyperlipidemia, treated, cholesterol 150, LDL 72.8 Hypothyroid, TSH 1.73 Diabetes mellitus, hemoglobin A1c 7.1% CVA Hepatitis as a child CKD Previous tobacco dependence with recent cessation Severe COPD, preoperative FEV1 27% of predicted Previous methamphetamine use with recent cessation Family history of coronary artery disease with sister having multiple stents Plan: Continue to maximize medical therapy with aspirin, statin, beta-alex, IV Lasix Patient will have AFRICA today to determine if mitral valve repair is were needed Panorex was completed, dental consult placed for clearance if mitral valve repair is needed Will recalculate STS risk score after AFRICA completed Will complete 5 m walk test Continue preoperative teaching Increase activity as tolerated Encourage incentive spirometry use Aggressive risk factor management Appreciate nephrology recommendations, if patient is going to be a planned dialysis patient would prefer dialysis start prior to surgery Management of other comorbidities per internal medicine, cardiology, pulmonology, nephrology More recommendations to follow
[2024-02-17] MEDS: ALPRAZolam 0.5 MG TAB PO PRN (09:16)
[2024-02-17 09:17] LABS: Basophils % (A) 1 %; Eosinophils # (A) 0.3 k/uL (0-0.7); Eosinophils % (A) 5 %; HCT 25.1 % (34.0-46.0); HGB 7.7 gm/dL (11.4-16.0); Hypochromasia Slight; Lymphocytes # (A) 1.2 k/uL (1.0-4.8); Lymphocytes % (A) 24 %; MCH 30.3 pg (25.0-35.0); MCHC 30.9 g/dL (31.0-37.0); MCV 98.3 fL (80.0-100.0); Macrocytosis Slight; Mean Platelet Volume 8.9; Monocytes # (A) 0.3 k/uL (0-1.0); Monocytes % (A) 7 %; Neutrophils % (A) 62 %; Platelet Count 417 k/uL (150-450); RBC 2.55 m/uL (3.80-5.40); RDW 14.7 % (11.5-15.5); WBC 4.9 k/uL (3.8-10.6)
[2024-02-17 09:32] LABS: African American GFR (CKD) 15 (>60 ml/min/1.73 sqM); Anion Gap 8 mmol/L; Blood Urea Nitrogen 85 mg/dL (7-17); Calcium 7.9 mg/dL (8.4-10.2); Carbon Dioxide 26 mmol/L (22-30); Chloride 102 mmol/L (98-107); Glucose 108 mg/dL (74-99); Non-African American GFR(CKD) 13 (>60 ml/min/1.73 sqM); Potassium 3.7 mmol/L (3.5-5.1); Sodium 136 mmol/L (137-145)
--- NOTE | 2024-02-17 10:29 | P.GSCN ---
History of Present Illness Consult date: 02/17/24 (Pt) Reason for Consult: Pt presented with some missing teeth and broken #'s 18,20,31. Pt has not been to the dentist in many years. Pt is asymptomatic and stated she had had no trouble with any teeth. Pt has severe decay in these three teeth, and they all require extractions at some point. Pt has negative sensitivity to percussion, negative sensitivity to pressure at buccal or lingual vestibules, no mobility in teeth, no swelling and no bleeding or swollen gingiva. Radiographically, teeth 18,20 exhibit a start of radiolucency but looks like chronic abscesses of devital teeth, and no acute abscesses are present at all. Stressed to patient the need to get these teeth cleaned and get the broken ones extracted as soon as she is meedically cleared. No need for tc before the surgery from the dental aspect. Thank you for your kind referral. Past Medical History Past Medical History: Coronary Artery Disease (CAD), Chest Pain / Angina, Heart Failure, COPD, CVA/TIA, Diabetes Mellitus, Fibromyalgia, GERD/Reflux, Hyperlipidemia, Hypertension, Liver Disease, Myocardial Infarction (LA), Osteoarthritis (OA), Renal Disease, Thyroid Disorder Additional Past Medical History / Comment(s): NEUROPATHY BILATERAL FEET, DDD NECK AND LOWER BACK, hiatal hernia, states no need for BP med anymore(gets orthostatic hypotension-has "medtronic heart loop monitor"), hx hepatitis as a kid, hx fractrured left wrist, hx stroke 03/03/22-problems with balance since. History of Any Multi-Drug Resistant Organisms: MRSA Year Discovered:: 2018 MDRO Source:: stomach Past Surgical History: Adenoidectomy, Back Surgery, Bladder Surgery, Hysterectomy, Orthopedic Surgery, Tonsillectomy, Tubal Ligation Additional Past Surgical History / Comment(s): Debridement right foot, PICC line placed and later removed, bladder suspension, exploratory laparotomy, right great toe amputation, pins right in foot, cataracts removed, left wrist ORIF, loop heart monitor placed 02/2022. Past Anesthesia/Blood Transfusion Reactions: No Reported Reaction, Motion Sickness Additional Past Anesthesia/Blood Transfusion Reaction / Comm: . Type of Cardiac Device: Loop Past Psychological History: Anxiety, Depression Smoking Status: Former smoker Past Alcohol Use History: Occasional Past Drug Use History: Marijuana, Methamphetamine Additional Drug Use History / Comment(s): States that she last used methamphetamine 2 months ago - Past Family History Sister(s) Family Medical History: Coronary Artery Disease (CAD) Mother Family Medical History: Pulmonary Embolus Additional Family Medical History / Comment(s): . Father Additional Family Medical History / Comment(s): at 26yrs old--accident at work Medications and Allergies Home Medications Medication Instructions Recorded Confirmed Type Levothyroxine Sodium [Synthroid] 175 mcg PO DAILY 02/02/22 02/06/24 History Acetaminophen Tab [Tylenol] 650 mg PO BID PRN 02/06/24 02/06/24 History Albuterol Nebulized [Ventolin 2.5 mg INHALATION RT-TID PRN 02/06/24 02/06/24 History Nebulized] Atorvastatin [Lipitor] 20 mg PO HS 02/06/24 02/06/24 History Ciclesonide [Alvesco] 1 puff INHALATION RT-BID 02/06/24 02/06/24 History Insulin Glargine [Lantus Vial] 8 unit SQ BID 02/06/24 02/06/24 History Insulin Regular [humuLIN R] 2 units SQ TID PRN 02/06/24 02/06/24 History Insulin Regular [humuLIN R] See Protocol SQ QID 02/06/24 02/06/24 History Ondansetron Hcl 2mg/Ml Injection 4 mg INJ ONCE PRN 02/06/24 02/06/24 History Ondansetron [Zofran] 4 mg PO BID PRN 02/06/24 02/06/24 History traZODone HCL [Desyrel] 50 mg PO HS 02/09/24 02/09/24 History Allergies Allergy/AdvReac Type Severity Reaction Status Date / Time Sulfa (Sulfonamide Allergy see comment Verified 02/06/24 13:59 Antibiotics) Surgical - Exam Vital Signs Temp Pulse Resp BP Pulse Ox 97.6 F 95 18 103/56 97 02/06/24 11:55 02/06/24 11:55 02/06/24 11:55 02/06/24 11:55 02/06/24 11:55 Results - Labs 02/17/24 07:06 02/17/24 07:06 Abnormal Lab Results - Last 24 Hours (Table) 02/16/24 02/16/24 02/16/24 Range/Units 11:40 16:39 20:11 RBC (3.80-5.40) m/uL Hgb (11.4-16.0) gm/dL Hct (34.0-46.0) % MCHC (31.0-37.0) g/dL Sodium (137-145) mmol/L BUN (7-17) mg/dL Creatinine (0.52-1.04) mg/dL Glucose (74-99) mg/dL POC Glucose (mg/dL) 231 H 134 H 112 H (70-110) mg/dL Calcium (8.4-10.2) mg/dL 02/17/24 02/17/24 02/17/24 Range/Units 06:10 07:06 07:06 RBC 2.55 L (3.80-5.40) m/uL Hgb 7.7 L (11.4-16.0) gm/dL Hct 25.1 L (34.0-46.0) % MCHC 30.9 L (31.0-37.0) g/dL Sodium 136 L (137-145) mmol/L BUN 85 H (7-17) mg/dL Creatinine 3.59 H (0.52-1.04) mg/dL Glucose 108 H (74-99) mg/dL POC Glucose (mg/dL) 131 H (70-110) mg/dL Calcium 7.9 L (8.4-10.2) mg/dL Diabetes panel 02/17/24 Range/Units 07:06 Sodium 136 L (137-145) mmol/L Potassium 3.7 (3.5-5.1) mmol/L Chloride 102 (98-107) mmol/L Carbon Dioxide 26 (22-30) mmol/L BUN 85 H (7-17) mg/dL Creatinine 3.59 H (0.52-1.04) mg/dL Glucose 108 H (74-99) mg/dL Calcium 7.9 L (8.4-10.2) mg/dL Thyroid panel 02/16/24 Range/Units 07:46 TSH 1.730 (0.465-4.680) mIU/L Calcium panel 02/17/24 Range/Units 07:06 Calcium 7.9 L (8.4-10.2) mg/dL Pituitary panel 02/16/24 02/17/24 Range/Units 07:46 07:06 Sodium 136 L (137-145) mmol/L Potassium 3.7 (3.5-5.1) mmol/L Chloride 102 (98-107) mmol/L Carbon Dioxide 26 (22-30) mmol/L BUN 85 H (7-17) mg/dL Creatinine 3.59 H (0.52-1.04) mg/dL Glucose 108 H (74-99) mg/dL Calcium 7.9 L (8.4-10.2) mg/dL TSH 1.730 (0.465-4.680) mIU/L Adrenal panel 02/17/24 Range/Units 07:06 Sodium 136 L (137-145) mmol/L Potassium 3.7 (3.5-5.1) mmol/L Chloride 102 (98-107) mmol/L Carbon Dioxide 26 (22-30) mmol/L BUN 85 H (7-17) mg/dL Creatinine 3.59 H (0.52-1.04) mg/dL Glucose 108 H (74-99) mg/dL Calcium 7.9 L (8.4-10.2) mg/dL
[2024-02-17] MEDS: BENZOCAINE SPRAY 1 CAN MUCOUS MEM ONE (12:05)
[2024-02-17] MEDS: SODIUM CHLORIDE 0.9% 500 ML 500 ML IV ONE (12:06)
--- NOTE | 2024-02-17 12:06 | P.PN ---
Subjective Progress Note Date: 02/17/24 Principal diagnosis: Acute hypoxic respiratory failure secondary to acute systolic congestive heart failure and ischemic cardiomyopathy Patient is a 58-year-old white female with past medical history significant for COPD, chronic ongoing tobacco dependence, CVA/TIA, diabetes mellitus, hyperlipidemia, hypertension, hypothyroidism, fibromyalgia, GERD, among other things. Patient presented back on 02/06/2024 from alf with chief complaint of increased lower extremity swelling. She states that she first noted the swelling back in December,. It is progressively worsened, she states she has gained approximately 20 pounds over the last 2 months. Approximately 10 days ago she was awoken at night with substernal chest pain. Nonradiating. With associated shortness of breath and sweating. Lasted up to 15 minutes. She is also had a nonproductive cough. She was noted to be febrile this admission. She is empirically covered on antibiotics. On arrival to the emergency room, she was noted to have elevated troponins of 1.29, 1.76, and 2.2. EKG showed normal sinus rhythm with left bundle branch block, without any other acute ischemic changes. No previous EKG for comparison. She was started on heparin infusion per protocol. She also was on a Nitropaste. Echocardiogram showed a severely impaired left ventricular ejection fraction of 20 to 25%, and moderate to severe mitral regurgitation. Today, she was started on a Lasix infusion at 5 mg/h. Heparin infusion was stopped as the patient is anemic. Patient denies any acute blood loss. No vaginal bleeding. No juan blood in stool. No melena. No nausea or vomiting or hematic emesis. Last colonoscopy was reportedly around 10 years ago. She is currently lying in bed, on 2 L/min nasal cannula. Chest x-ray on admission shows diffuse interstitial edema as well as bilateral consolidation and small effusions. Findings consistent with congestive heart failure. NT proBNP was elevated 25,000. Patient not making much urine despite Lasix infusion. Patient did have 1 episode of fever during her admission with a Tmax of 100.2 F. She was empirically she was empirically placed on Rocephin. Negative for influenza, RSV, COVID. Most recent BMP from today: Sodium 130, potassium 5.1, chloride 104, serum bicarb down to 17, BUN 63, creatinine worsening and 3.34, glucose 229. LFTs mildly elevated. Hepatitis panel nonreactive. Overall, hemodynamically stable. On 02/08/2024, seen the patient for a follow-up. The patient is currently on 3 L of oxygen by nasal cannula with a pulse ox of 94%. She should be able to wean down. She is on Lasix drip at 5 mg an hour and the patient is producing adequ ate amount of urine output. Her fluid balance is negative. As mentioned, the patient is post non-ST segment ovation myocardial infarction the patient is being seen by cardiology. The patient has severe cardiomyopathy with impaired left ventricular ejection fraction. Her blood work from today shows a BUN of 66 with a creatinine of 3.41 and this is consistent with an acute on chronic kidney injury. Sodium levels at 129, potassium is at 4.4 with a WBC count of 6.3 and a hemoglobin of 7.4. The patient is on IV Rocephin as an empiric antibiotic coverage. She is currently afebrile. The patient is being seen by cardiology. The patient will be kept on IV Lasix. Not a candidate for any invasive cardiac workup due to her acute on top of chronic kidney injury at this point in time. Her comorbidities are multiple. Unsure if she does have underlying coronary artery disease. Nevertheless, she has previous history of CVA, diabetes mellitus type 2, hypothyroidism and CHF. She was in alf for being arrested due to possession of amphetamines. Vasculitis workup was negative including a n egative EDSON and a negative P and C ANCA. Hepatitis profile was also negative. On 02/10/2024, the patient is being seen for a follow-up. No new complaints. No significant shortness of breath at rest. Remains on Lasix drip. Producing adequate amount of urine output. Blood work from today was noticed that the patient has a white cell count of 6 with a hemoglobin of 7.2 and a PET scan at 360. BUN 69 with a creatinine of 3.4 and a sodium levels at 129. The patient is being seen by cardiology and nephrology addition. She remains on Lasix drip which will be increased up to 10 mg an hour. Not a candidate for further cardiac catheterization based on underlying renal dysfunction. 02/11/2024, the patient is being seen for a follow-up. No new complaints. Monitor for improvement in her condition. She remains on 2 L of oxygen by nasal cannula. Fluid balance is -90 cc over the past 24 hours. Suboptimal response to diuretics and the patient remains on Lasix at 10 mg an hour. BUN 71 with a creatinine of 3.7, slightly worse compared to yesterday. Sodium is at 131. The patient denies having any chest pain. No significant hypotension. Remains on aspirin. Remains on metoprolol 25 mg p.o. twice a day. Cardiology on the case. She has significant cardiomyopathy. She is post acute non-STEMI. Not a candidate for cardiac catheterization due to renal impairment. The patient is seen today February 12, 2024 in follow-up on the selective care unit. She is currently sitting up in bed. Awake and alert in no acute distress. She is maintaining O2 saturation in the 90s on 3 L nasal cannula. She is afebrile. Hemodynamically stable. Today's chest x-ray reviewed reveals diffuse bilateral infiltrates with small effusion or early congestive heart failure. Hemoglobin 6.7. 1 unit of packed blood cells have been ordered. Platelets 362. White count 6.1. Sodium 131. Potassium 4.2. Bicarb 21. BUN 80. Creatinine 3.89. Glucose 286. She remains on. Antibiotics in the form of ceftriaxone. Remains on a Lasix drip at 5 mg an hour. Currently in a -178 mL balance. The patient is seen today February 13, 2024 in follow-up on the selective care unit. She is awake and alert in no acute distress. Sitting up in bed. Blood and urine cultures revealed no growth. White count 6.2. Hemoglobin 7.4. Platelets 01/05/1978. Sodium 133. Potassium 3.9. Bicarb 21. BUN 83. Creatinine 3.60. Glucose 154. She remains on a Lasix drip currently at 5 mg/h. She remains on a heparin drip. Receiving sodium bicarb tablets. Continued on bronchodilators. Continued on antibiotics in the form of ceftriaxone. She is currently in a negative balance. Voided 1 L today. The patient is seen today February 14, 2024 in follow-up on the selective care unit. She is currently sitting up in bed. Awake and alert in no acute distress. She is maintaining good O2 saturations in the 90s on 3 L/min per nasal cannula. She is afebrile. Hemodynamically stable. Follow-up chest x-ray continues to show diffuse bilateral infiltrate with small effusions. She is status post 1 unit of packed red blood cells this admission. Last hemoglobin 7.7. Sodium 135. Potassium 4.6. Bicarb 20. BUN 87. Creatinine 3.55. Glucose 358. She is continued on bronchodilators. Antibiotics in form of ceftriaxone. She remains on a Lasix drip at 10 mg/h. Receiving sodium bicarb tablets. Currently -688 mL balance. Nephrology is following. The patient is seen today February 15, 2024 in follow-up on the selective care unit. She is currently sitting up in bed awake and alert in no acute distress. She is maintaining O2 saturations in the mid 90s on 2 L/min per nasal cannula. She is afebrile. Hemodynamically stable. White count 6.8. Hemoglobin 8.6. Platelets 438. Sodium 135. Potassium 4.0. Bicarb 21. BUN 84. Creatinine 3.41. Glucose 171. She remains on a Lasix drip at 10 mg/h. Continued on a heparin drip. Plan to -1 L balance. Stress testing today reveals a large area of fixed defect involving all segments of the myocardium suggestive of remote ischemia. Could not exclude a tiny area of stress-induced reversibility within the apex. Reduced wall motion activity with ejection fraction of only 21%. Patient was seen and examined today on 02/16/2024 patient is feeling better today, continues to diurese with a Lasix drip, remains in negative fluid balance, patient underwent cardiac catheterization today and she was found to have severe triple-vessel coronary artery disease, now she is being evaluated by surgery, patient does have severe LV dysfunction, she is definitely high surgical risk, but no absolute contraindication to surgery.Basic metabolic profile is normal BUN is 85 creatinine 3.58 however the patient may require hemodialysis, and she will need nephrology clearance she will also need a bedside spirometry/FEV1 for preoperative pulmonary clearance in the meantime we will continue diuretics/Lasix drip Patient was reevaluated today on 02/17/2024, remains on Lasix drip, remains in negative fluid balance, patient is very well aware that she had abnormal cardiac catheterization and now she is being evaluated for possible myocardial revascularization. Patient remains on oxygen at 2 L/min and her O2 sats is 97%, her PFT showed severe obstructive lung disease, however not severe enough to not consider myocardial revascularization if the patient is cleared by other con sultants including nephrology and cardiology. Patient has been a smoker over the years, she had at least a [id number] smoking history. Remind you patient had a PFT with chest x-ray still showing evidence of pulmonary edema which will definitely compromise her PFT will likely reflect more restriction than obstructive lung disease. WBC count today is 4.9 hemoglobin 7.7 electrolytes are normal BUN is 85 creatinine 3.59 Objective - Vital Signs Vital signs: Vital Signs Temp 97 F L 02/17/24 08:00 Pulse 85 02/17/24 08:16 Resp 16 02/17/24 08:00 BP 123/63 02/17/24 08:00 Pulse Ox 97 02/17/24 08:06 FiO2 Intake & Output 02/16/24 02/17/24 02/17/24 18:59 06:59 18:59 Intake Total 150 100 Output Total 1250 700 Balance -1100 -600 Weight 76 kg Intake: IV 50 Intake, IV Titration 100 100 Amount Furosemide 100 mg In 100 100 Sodium Chloride 0.9% 90 ml @ 10 MG/HR 10 mls/hr IV .Q10H [facility] Rx#: [id number] Output: Urine 1250 700 Other: Voiding Method Indwelling Catheter Indwelling Catheter Indwelling Catheter - Exam GENERAL EXAM: Alert, 58-year-old female, sitting up in bed, on 2 L nasal cannula HEAD: Normocephalic and atraumatic EYES: Normal reaction of pupils, equal size. NOSE: Clear with pink turbinates. THROAT: No erythema or exudates. NECK: No masses, no JVD. CHEST: No chest wall deformity. LUNGS: Equal air entry with bibasilar crackles and mild and expiratory wheezes heard bilaterally. CVS: S1 and S2 normal with no audible murmur, regular rhythm. No extra heart sounds ABDOMEN: No hepatosplenomegaly, active bowel sounds, no guarding or rigidity. SKIN: No rashes CENTRAL NERVOUS SYSTEM: Alert oriented x 3 no gross focal deficit EXTREMITIES: Trace of bipedal edema - Labs CBC & Chem 7: 02/17/24 07:06 02/17/24 07:06 Labs: Abnormal Lab Results - Last 24 Hours (Table) 02/16/24 02/16/24 02/17/24 Range/Units 16:39 20:11 06:10 RBC (3.80-5.40) m/uL Hgb (11.4-16.0) gm/dL Hct (34.0-46.0) % MCHC (31.0-37.0) g/dL Sodium (137-145) mmol/L BUN (7-17) mg/dL Creatinine (0.52-1.04) mg/dL Glucose (74-99) mg/dL POC Glucose (mg/dL) 134 H 112 H 131 H (70-110) mg/dL Calcium (8.4-10.2) mg/dL 02/17/24 02/17/24 Range/Units 07:06 07:06 RBC 2.55 L (3.80-5.40) m/uL Hgb 7.7 L (11.4-16.0) gm/dL Hct 25.1 L (34.0-46.0) % MCHC 30.9 L (31.0-37.0) g/dL Sodium 136 L (137-145) mmol/L BUN 85 H (7-17) mg/dL Creatinine 3.59 H (0.52-1.04) mg/dL Glucose 108 H (74-99) mg/dL POC Glucose (mg/dL) (70-110) mg/dL Calcium 7.9 L (8.4-10.2) mg/dL Assessment and Plan Assessment: Impression: Severe triple-vessel coronary artery disease based on cardiac catheterization today 02/16/2024 Acute non-ST elevation AL. Stress testing today 02/15/2024 reveals a large area of fixed defect involving all segments of the myocardium suggestive of remote ischemia. Cannot exclude a tiny area of stress-induced reversibility within the apex. Reduced wall motion activity with ejection fraction of only 21%. Remains on heparin drip. Acute hypoxemic respiratory failure, currently on 2 L/min nasal cannula, secondary to exacerbation of systolic congestive heart failure and above, Chest x-ray on admission shows diffuse interstitial edema as well as bilateral consolidation and small effusions. Findings consistent with congestive heart failure, however, superimposed community-acquired bibasilar pneumonia is not excluded. Ischemic cardiomyopathy with an estimated left ventricular ejection fraction severely impaired at 20 to 25% as well as moderate to severe mitral valve regurgitation, currently on Lasix infusion at 5 mg/h, responding to diuresis with Lasix drip. Negative fluid balance. Severe mitral valve regurgitation Acute febrile illness, recovered Normocytic normochromic anemia, current hemoglobin 7.4, received 1 unit of packed red blood cell Acute kidney injury, likely cardiorenal, worsening creatinine, the patient is producing adequate amount of urine output Metabolic non-anion gap acidosis, secondary to above Chronic obstructive pulmonary disease, stable Diabetes mellitus type 1 History of hyperlipidemia History of hypertension History of CVA/TIA History of hypothyroidism History of fibromyalgia History of GERD Mildly elevated LFTs, hepatitis panel nonreactive Former tobacco smoker, 1/2 pack/day or approximately 15-year pack history Recommendation: Continue Lasix drip Patient is being considered for CABG early next week Nephrology to clear for potential surgery if to be done. Again patient is considered high surgical risk but no absolute current indication Continue fluid restriction 1200 mL/day Continue anticoagulation therapy/heparin Will continue to follow Time with Patient: Less than 30
[2024-02-17] MEDS: fentaNYL (PF) 50 MCG/1 ML VIAL IVP ONE (12:16)
[2024-02-17] MEDS: MIDAZOLAM 2 MG/2 ML VIAL IVP ONE ×2 (12:17→12:22)
[2024-02-17 13:04] LABS: Glucose,Whole Blood 196 mg/dL (70-110)
[2024-02-17] MEDS: fentaNYL (PF) 50 MCG/ML 2 ML AMP ONE (13:05)
[2024-02-17] MEDS: MUPIROCIN 2% OINT 22 GM TUBE NASAL SCH (13:10)
--- NOTE | 2024-02-17 13:22 | P.PN ---
Subjective Progress Note Date: 02/17/24 Patient is seen in follow-up for acute kidney injury. Renal function stable. Currently on Lasix drip. Has Saldaña catheter for urinary retention. Nonoliguric. Planning for [place] today. Vital signs are stable. General: No acute distress. HEENT: Head exam is unremarkable. On nasal cannula. LUNGS: No audible rhonchi or wheezes. HEART: Rate and Rhythm are regular. ABDOMEN: Nontender. EXTREMITITES: No edema. Objective - Vital Signs Vital signs: Vital Signs Temp 97.7 F 02/17/24 05:16 Pulse 85 02/17/24 08:16 Resp 17 02/17/24 05:16 BP 136/71 02/17/24 05:16 Pulse Ox 97 02/17/24 08:06 FiO2 Intake & Output 02/16/24 02/17/24 02/17/24 18:59 06:59 18:59 Intake Total 150 Output Total 1250 700 Balance -1100 -700 Weight 76 kg Intake: IV 50 Intake, IV Titration 100 Amount Furosemide 100 mg In 100 Sodium Chloride 0.9% 90 ml @ 10 MG/HR 10 mls/hr IV .Q10H [facility] Rx#: [id number] Output: Urine 1250 700 Other: Voiding Method Indwelling Catheter Indwelling Catheter - Labs CBC & Chem 7: 02/17/24 07:06 02/17/24 07:06 Labs: Abnormal Lab Results - Last 24 Hours (Table) 02/16/24 02/16/24 02/16/24 Range/Units 11:40 16:39 20:11 RBC (3.80-5.40) m/uL Hgb (11.4-16.0) gm/dL Hct (34.0-46.0) % MCHC (31.0-37.0) g/dL Sodium (137-145) mmol/L BUN (7-17) mg/dL Creatinine (0.52-1.04) mg/dL Glucose (74-99) mg/dL POC Glucose (mg/dL) 231 H 134 H 112 H (70-110) mg/dL Calcium (8.4-10.2) mg/dL 02/17/24 02/17/24 02/17/24 Range/Units 06:10 07:06 07:06 RBC 2.55 L (3.80-5.40) m/uL Hgb 7.7 L (11.4-16.0) gm/dL Hct 25.1 L (34.0-46.0) % MCHC 30.9 L (31.0-37.0) g/dL Sodium 136 L (137-145) mmol/L BUN 85 H (7-17) mg/dL Creatinine 3.59 H (0.52-1.04) mg/dL Glucose 108 H (74-99) mg/dL POC Glucose (mg/dL) 131 H (70-110) mg/dL Calcium 7.9 L (8.4-10.2) mg/dL Assessment and Plan Plan: Assessment: 1. Acute kidney injury secondary to ATN secondary to cardiorenal syndrome. Creatinine fairly stable at 3.58 yesterday. Creatinine as low as 0.98 dated March 01, 2022. No hydronephrosis noted on kidney ultrasound. Serologies negative. 2. Acute on chronic systolic CHF with ejection fraction of 20 to 25% with moderate to severe mitral regurgitation and mild pulmonary hypertension. 3. Volume overload. Improving with diuresis. 4. Anemia. Iron deficiency noted. Status post IV iron. On Aranesp. GI following. Status post blood transfusion this admission. Also received IV DDAVP. 5. Metabolic acidosis secondary to acute kidney injury. On oral bicarb. Stable. 6. Hypervolemic hyponatremia. Also component of hypertonicity from hyperglycemia. Better. 7. Urinary retention status post Saldaña catheter placement. On Flomax. Plan: Lasix drip per cardiology. Planning [place] today to assess MV Status post metolazone dose given February 15, 2024. Strict I's and O's. Maintain 1200 cc fluid restriction. Blood glucose control. Continue to monitor renal function and urine output. Cardiac catheterization yesterday
[2024-02-17] MEDS: FLUMAZENIL 0.1 MG/ML 5 ML VIAL IVP ONE (13:42)
--- NOTE | 2024-02-17 15:44 | P.TEE ---
Description of Procedure(s): Procedure performed: Transesophageal Echocardiogram with color flow doppler, pulsed wave doppler and continuous wave doppler, moderate conscious sedation Moderate conscious sedation: Moderate conscious sedation was supplied with direct supervision of myself using Versed and Fentanyl. Complications: none Indications: Mitral regurgitation PROCEDURE: After the risks, benefits and alternatives of the above mentioned procedure was explained in detail with the patient, informed consent was obtained. Patient was brought to the lab in a fasting state. Patient was given IV Versed and Fentanyl for sedation. The throat was sprayed with Hurricane to anesthetize the throat. A lubricated Omni probe was then introduced into the esophagus and stomach and multiple views were obtained. 2D echo with color flow doppler, pulsed wave doppler and continuous wave doppler was utilized. Agitated saline bubbles were injected to assess for any intra-atrial shunt. The probe was then removed. Patient tolerated the procedure well. Patient was transferred to the post procedure area in stable and satisfactory condition. FINDINGS: 1. The aortic valve is tricuspid and function normally. 2. The mitral valve appears be structurally normal with mild central secondary mitral regurgitation. Pulmonary vein flow has systolic dominance. 3. Tricuspid valve appears to be normal with mild tricuspid regurgitation 4. The interatrial septum is intact. No evidence of PFO. 5. Left atrial appendage is free of clot. 6. Left ventricular EF 35% with global hypokinesis
--- NOTE | 2024-02-17 15:52 | P.PN ---
Subjective Progress Note Date: 02/17/24 58 years old female with past medical history of multiple medical problems as below She has been incarcerated for 52 days, there is officer at bedside. Patient presents because of shortness of breath and exertional dyspnea has for the last 2 days, she states she hears herself wheezing when she lies down. Currently she is breathing quietly. She is complaining for mild chest pain on the left side, nonradiating nonspecific, feels much better now and very mild. She follow-up with her diver assistant Dr. Donal Herrera and lead mobile developer Dr. Babb who examined her about 2 months ago where she has some mild ulcer In the bottom of her right total This morning patient has low-grade fever 100.2 She is also mildly tachypneic around 22 She is saturating 93% on 2 L oxygen via nasal cannula Labs reviewed showing hemoglobin of 7.7, rest of CBC is unremarkable BMP liver enzymes not elevated. INR 0.9. Lactic 0.9 proBNP is elevated 25 100 EKG showing sinus rhythm at [address]-T changes, no left bundle branch block 02/17/2024 --Patient is seen and evaluated in room at bedside; remains on Lasix drip, remains in negative fluid balance - patient underwent cardiac catheterization which revealed severe triple-vessel coronary artery disease and now she is being evaluated for possible myocardial revascularization. Patient remains on oxygen at 2 L/min and her O2 sats is 97%, her PFT showed severe obstructive lung disease, however not severe enough to not consider myocardial revascularization if the patient is cleared by other consultants including nephrology and cardiology. Patient has been a smoker over the years, she had at least a [id number] smoking history. Remind you patient had a PFT with chest x-ray still showing evidence of pulmonary edema which will definitely compromise her PFT will likely reflect more restriction than obstructive lung disease. WBC count today is 4.9 hemoglobin 7.7 electrolytes are normal BUN is 85 creatinine 3.59 Objective - Vital Signs Vital signs: Vital Signs Temp 97 F L 02/17/24 08:00 Pulse 85 02/17/24 08:16 Resp 16 02/17/24 08:00 BP 123/63 02/17/24 08:00 Pulse Ox 97 02/17/24 08:06 FiO2 Intake & Output 02/16/24 02/17/24 02/17/24 18:59 06:59 18:59 Intake Total 150 Output Total 1250 700 Balance -1100 -700 Weight 76 kg Intake: IV 50 Intake, IV Titration 100 Amount Furosemide 100 mg In 100 Sodium Chloride 0.9% 90 ml @ 10 MG/HR 10 mls/hr IV .Q10H [facility] Rx#: [id number] Output: Urine 1250 700 Other: Voiding Method Indwelling Catheter Indwelling Catheter Indwelling Catheter - Exam GENERAL: The patient is alert and oriented x3, not in any acute distress. Ill appearance, pale appearing HEENT: Pupils are round and equally reacting to light. EOMI. Normocephalic, atraumatic. No pharyngeal erythema. No thyromegaly. CARDIOVASCULAR: S1 and S2 present. No murmurs, rubs, or gallops. PULMONARY: Decreased breath sounds bilaterally ABDOMEN: Soft, nontender, nondistended, normoactive bowel sounds. No palpable organomegaly. Saldaña catheter in place MUSCULOSKELETAL: No joint swelling or deformity. EXTREMITIES: No cyanosis, clubbing, 1+ bilateral pitting leg edema. NEUROLOGICAL: Gross neurological examination did not reveal any focal deficits. - Labs CBC & Chem 7: 02/17/24 07:06 02/17/24 07:06 Labs: Abnormal Lab Results - Last 24 Hours (Table) 02/16/24 02/16/24 02/16/24 Range/Units 11:40 16:39 20:11 RBC (3.80-5.40) m/uL Hgb (11.4-16.0) gm/dL Hct (34.0-46.0) % MCHC (31.0-37.0) g/dL Sodium (137-145) mmol/L BUN (7-17) mg/dL Creatinine (0.52-1.04) mg/dL Glucose (74-99) mg/dL POC Glucose (mg/dL) 231 H 134 H 112 H (70-110) mg/dL Calcium (8.4-10.2) mg/dL 02/17/24 02/17/24 02/17/24 Range/Units 06:10 07:06 07:06 RBC 2.55 L (3.80-5.40) m/uL Hgb 7.7 L (11.4-16.0) gm/dL Hct 25.1 L (34.0-46.0) % MCHC 30.9 L (31.0-37.0) g/dL Sodium 136 L (137-145) mmol/L BUN 85 H (7-17) mg/dL Creatinine 3.59 H (0.52-1.04) mg/dL Glucose 108 H (74-99) mg/dL POC Glucose (mg/dL) 131 H (70-110) mg/dL Calcium 7.9 L (8.4-10.2) mg/dL Assessment and Plan Assessment: Acute congestive heart failure with systolic dysfunction ejection fraction of 20-25 % New onset cardiomyopathy. Ischemic versus nonischemic. Acute hypoxemic respiratory failure multifactorial CHF, multifocal pneumonia. Multifocal pneumonia Non-ST elevated MA Acute kidney injury due to ATN secondary to cardiorenal. Patient is nonoliguric Acute on chronic anemia of chronic disease Acute urinary tract infection, urine culture showing skin or genital kwesi Chronic kidney disease stage II with acute kidney injury Urinary retention status post Saldaña catheter placement Diabetes mellitus type 2 Plan: In regards to hypoxemic respiratory failure, CHF exacerbation, continue patient on IV Lasix drip, continue to monitor intake and output continue with fluid restriction. Regards to multifocal pneumonia procalcitonin elevated continue. Completed c eftriaxone for 5 days on 02/13/2024 In regards to elevated troponin, continue current management medically, not a candidate for cardiac catheterization secondary to renal failure and anemia. Lexiscan stress test was done today.. In regards to diabetes mellitus Accu-Cheks ACHS continue patient on correctional insulin, NovoLog and Levemir In regards to anemia, continue to monitor H&H transfuse if hemoglobin less than 7, 1 unit of packed RBC ordered, fecal occult blood test ordered. Continue to titrate oxygen to room air.
[2024-02-17 16:18] LABS: Glucose,Whole Blood 149 mg/dL (70-110)
[2024-02-17 19:58] LABS: Glucose,Whole Blood 183 mg/dL (70-110)
[2024-02-18 03:10] LABS: Glucose,Whole Blood 64 mg/dL (70-110)
[2024-02-18 03:30] LABS: Glucose,Whole Blood 76 mg/dL (70-110)
[2024-02-18 06:03] LABS: Glucose,Whole Blood 100 mg/dL (70-110)
--- NOTE | 2024-02-18 08:26 | P.PN ---
Subjective Progress Note Date: 02/18/24 Principal diagnosis: Triple-vessel coronary artery disease, non-STEMI this admission, acute heart failure with reduced ejection fraction, new onset ischemic cardiomyopathy, moderate to severe mitral regurgitation, acute on chronic kidney disease, acute anemia. History of hypertension, hyperlipidemia, hypothyroid, diabetes mellitus, CVA, hepatitis as a child, CKD stage IV, previous tobacco dependence with recent cessation, severe COPD, previous methamphetamine use with recent cessation, family history of coronary artery disease The patient was seen and examined this morning sitting up in bed eating breakfast on the cardiac stepdown unit in no acute distress, precinct police captain present. Patient currently denies any chest pain or increased shortness of breath. She does state her shortness of breath gets worse with any activity, bilateral pleural effusions found on CT scan, remains on continuous IV Lasix. She underwent transesophageal echocardiogram yesterday which demonstrated only mild mitral regurgitation with EF 35% and global hypokinesis. Her bedside spirometry demonstrated severe obstructive and restrictive pulmonary disease, Dr. Polk would like a full pulmonary function test prior to surgery. Initially plan was for surgery tomorrow, Monday, however discussion took place between Dr. Gillette and Dr. Polk as well as Dr. Gillette and Dr. Berman, daveen t was seen yesterday by Dr. José, all feel patient needs more tuning up and maximization prior to surgery. Also, there is mention by nephrology about the need for possible dialysis. If dialysis is planned would prefer it start prior to surgery to help maximize patient. This was discussed this morning with the patient. Objective - Vital Signs Vital signs: Vital Signs Temp 97.8 F 02/18/24 03:59 Pulse 84 02/18/24 08:07 Resp 16 02/18/24 08:00 BP 114/61 02/18/24 08:00 Pulse Ox 94 L 02/18/24 08:00 FiO2 Intake & Output 02/17/24 02/18/24 02/18/24 18:59 06:59 18:59 Intake Total 590 662.5 Output Total 1400 1175 Balance -810 -512.5 Intake: IV 50 Intake, IV Titration 188.5 Amount Furosemide 100 mg In 188.5 Sodium Chloride 0.9% 90 ml @ 10 MG/HR 10 mls/hr IV .Q10H [id number] Rx#: [id number] Oral 540 474 Output: Urine 1400 1175 Uretheral (Saldaña) 125 Other: Voiding Method Indwelling Catheter Indwelling Catheter - Exam CONSTITUTIONAL: Appears comfortable, cooperative, no acute distress RESPIRATORY: Lungs sounds diminished bilaterally. Respirations even, non labored. Currently on 3 L nasal cannula with oxygen saturation 94%. Able to achieve 900 mL on incentive spirometry. Strong cough. CARDIOVASCULAR: S1, S2 present. Regular rate and rhythm, sinus rhythm on telemetry. Palpable peripheral pulses bilaterally. No edema present. No calf pain or tenderness noted GASTROINTESTINAL: Abdomen soft, nontender, nondistended. Active bowel sounds present 4 quadrants. Tolerating diet GENITOURINARY: Saldaña present draining clear, yellow urine. Output overnight 2575 mL in the last 24 hours INTEGUMENTARY: Skin is warm and dry NEUROLOGIC: Cranial nerves II through XII intact MUSKULOSKELETAL: Able to move all extremities, strength equal bilaterally PSYCHIATRIC: Alert and oriented to person place and time, appropriate affect, intact judgment and insight - Allied health notes Allied health notes reviewed: nursing - Labs CBC & Chem 7: 02/17/24 07:06 02/17/24 07:06 Labs: Abnormal Lab Results - Last 24 Hours (Table) 02/17/24 02/17/24 02/17/24 Range/Units 07:06 07:06 13:02 RBC 2.55 L (3.80-5.40) m/uL Hgb 7.7 L (11.4-16.0) gm/dL Hct 25.1 L (34.0-46.0) % MCHC 30.9 L (31.0-37.0) g/dL Sodium 136 L (137-145) mmol/L BUN 85 H (7-17) mg/dL Creatinine 3.59 H (0.52-1.04) mg/dL Glucose 108 H (74-99) mg/dL POC Glucose (mg/dL) 196 H (70-110) mg/dL Calcium 7.9 L (8.4-10.2) mg/dL 02/17/24 02/17/24 02/18/24 Range/Units 16:16 19:57 03:09 RBC (3.80-5.40) m/uL Hgb (11.4-16.0) gm/dL Hct (34.0-46.0) % MCHC (31.0-37.0) g/dL Sodium (137-145) mmol/L BUN (7-17) mg/dL Creatinine (0.52-1.04) mg/dL Glucose (74-99) mg/dL POC Glucose (mg/dL) 149 H 183 H 64 L (70-110) mg/dL Calcium (8.4-10.2) mg/dL Assessment and Plan Assessment: Triple-vessel coronary artery disease, non-STEMI this admission Acute heart failure with reduced ejection fraction, 20-25%, 35% on [place] New onset ischemic cardiomyopathy Moderate to severe mitral regurgitation on transthoracic echocardiogram, mild mitral regurgitation on [place] Acute on chronic kidney disease Acute anemia Hypertension Hyperlipidemia, treated, cholesterol 150, LDL 72.8 Hypothyroid, TSH 1.73 Diabetes mellitus, hemoglobin A1c 7.1% CVA Hepatitis as a child CKD Previous tobacco dependence with recent cessation Severe COPD, preoperative FEV1 27% of predicted Previous methamphetamine use with recent cessation Family history of coronary artery disease with sister having multiple stents Plan: Continue to maximize medical therapy with aspirin, statin, beta-alex, IV Lasix Will recalculate STS risk score after [place] completed Will complete 5 m walk test Continue preoperative teaching Increase activity as tolerated Encourage incentive spirometry use Aggressive risk factor management Appreciate nephrology recommendations, if patient is going to be a planned dialysis patient would prefer dialysis start prior to surgery Management of other comorbidities per internal medicine, cardiology, pulmonology, nephrology More recommendations to follow
[2024-02-18 08:49] LABS: Basophils % (A) 1 %; Eosinophils # (A) 0.3 k/uL (0-0.7); Eosinophils % (A) 5 %; HCT 25.5 % (34.0-46.0); HGB 7.9 gm/dL (11.4-16.0); Hypochromasia Slight; Lymphocytes # (A) 1.2 k/uL (1.0-4.8); Lymphocytes % (A) 25 %; MCH 30.3 pg (25.0-35.0); MCHC 31.1 g/dL (31.0-37.0); MCV 97.5 fL (80.0-100.0); Macrocytosis Slight; Mean Platelet Volume 7.8; Monocytes # (A) 0.3 k/uL (0-1.0); Monocytes % (A) 7 %; Neutrophils % (A) 60 %; Platelet Count 379 k/uL (150-450); RBC 2.61 m/uL (3.80-5.40); RDW 14.6 % (11.5-15.5)
[2024-02-18 08:59] LABS: Partial Thromboplastin Time 27.8 sec (22.0-30.0); Prothrombin Time 10.8 sec (10.0-12.5)
[2024-02-18 09:01] LABS: ALT 57 U/L (4-34); AST 46 U/L (14-36); African American GFR (CKD) 16 (>60 ml/min/1.73 sqM); Albumin 2.3 g/dL (3.5-5.0); Alkaline Phosphatase 245 U/L (38-126); Anion Gap 6 mmol/L; Blood Urea Nitrogen 82 mg/dL (7-17); Calcium 7.9 mg/dL (8.4-10.2); Carbon Dioxide 29 mmol/L (22-30); Chloride 100 mmol/L (98-107); Glucose 104 mg/dL (74-99); Magnesium 1.9 mg/dL (1.6-2.3); Non-African American GFR(CKD) 14 (>60 ml/min/1.73 sqM); Potassium 3.6 mmol/L (3.5-5.1); Sodium 135 mmol/L (137-145); Total Bilirubin 0.2 mg/dL (0.2-1.3); Total Protein 5.4 g/dL (6.3-8.2)
[2024-02-18 11:42] LABS: Glucose,Whole Blood 215 mg/dL (70-110)
--- NOTE | 2024-02-18 12:01 | P.PN ---
Subjective Progress Note Date: 02/18/24 Patient is seen in follow-up for acute kidney injury. Renal function stable. Currently on Lasix drip. Has Saldaña catheter for urinary retention. Nonoliguric. Vital signs are stable. General: No acute distress. HEENT: Head exam is unremarkable. On nasal cannula. LUNGS: No audible rhonchi or wheezes. HEART: Rate and Rhythm are regular. ABDOMEN: Nontender. EXTREMITITES: No edema. Objective - Vital Signs Vital signs: Vital Signs Temp 97.8 F 02/18/24 03:59 Pulse 84 02/18/24 08:07 Resp 16 02/18/24 08:00 BP 114/61 02/18/24 08:00 Pulse Ox 94 L 02/18/24 08:00 FiO2 Intake & Output 02/17/24 02/18/24 02/18/24 18:59 06:59 18:59 Intake Total 590 662.5 Output Total 1400 1175 Balance -810 -512.5 Intake: IV 50 Intake, IV Titration 188.5 Amount Furosemide 100 mg In 188.5 Sodium Chloride 0.9% 90 ml @ 10 MG/HR 10 mls/hr IV .Q10H [facility] Rx#: [id number] Oral 540 474 Output: Urine 1400 1175 Uretheral (Saldaña) 125 Other: Voiding Method Indwelling Catheter Indwelling Catheter - Labs CBC & Chem 7: 02/18/24 08:22 02/18/24 08:22 Labs: Abnormal Lab Results - Last 24 Hours (Table) 02/17/24 02/17/24 02/17/24 Range/Units 13:02 16:16 19:57 RBC (3.80-5.40) m/uL Hgb (11.4-16.0) gm/dL Hct (34.0-46.0) % Sodium (137-145) mmol/L BUN (7-17) mg/dL Creatinine (0.52-1.04) mg/dL Glucose (74-99) mg/dL POC Glucose (mg/dL) 196 H 149 H 183 H (70-110) mg/dL Calcium (8.4-10.2) mg/dL AST (14-36) U/L ALT (4-34) U/L Alkaline Phosphatase (38-126) U/L Total Protein (6.3-8.2) g/dL Albumin (3.5-5.0) g/dL 02/18/24 02/18/24 02/18/24 Range/Units 03:09 08:22 08:22 RBC 2.61 L (3.80-5.40) m/uL Hgb 7.9 L (11.4-16.0) gm/dL Hct 25.5 L (34.0-46.0) % Sodium 135 L (137-145) mmol/L BUN 82 H (7-17) mg/dL Creatinine 3.39 H (0.52-1.04) mg/dL Glucose 104 H (74-99) mg/dL POC Glucose (mg/dL) 64 L (70-110) mg/dL Calcium 7.9 L (8.4-10.2) mg/dL AST 46 H (14-36) U/L ALT 57 H (4-34) U/L Alkaline Phosphatase 245 H (38-126) U/L Total Protein 5.4 L (6.3-8.2) g/dL Albumin 2.3 L (3.5-5.0) g/dL Assessment and Plan Plan: Assessment: 1. Acute kidney injury secondary to ATN secondary to cardiorenal syndrome. Creatinine fairly stable at 3.4 today. Creatinine as low as 0.98 dated March 01, 2022. No hydronephrosis noted on kidney ultrasound. Serologies negative. 2. Acute on chronic systolic CHF with ejection fraction of 20 to 25% with moderate to severe mitral regurgitation and mild pulmonary hypertension. 3. Volume overload. Improving with diuresis. 4. Anemia. Iron deficiency noted. Status post IV iron. On Aranesp. GI following. Status post blood transfusion this admission. Also received IV DDAVP. 5. Metabolic acidosis secondary to acute kidney injury. On oral bicarb. Stable. 6. Hypervolemic hyponatremia. Also component of hypertonicity from hyperglycemia. Better. 7. Urinary retention status post Saldaña catheter placement. On Flomax. Plan: Continue Lasix drip. Status post metolazone dose given February 15, 2024. Strict I's and O's. Maintain 1200 cc fluid restriction. Blood glucose control. Continue to monitor renal function and urine output. No indication for HD at this time.
[2024-02-18] MEDS: hydrALAZINE HCL 10 MG TAB PO SCH (12:26)
--- NOTE | 2024-02-18 12:29 | P.PN ---
Subjective Progress Note Date: 02/18/24 HISTORY OF PRESENT ILLNESS: This is a 58-year-old female with a past medical history significant for former nicotine dependence, hypertension, CVA, hypothyroidism, and diabetes. Patient follows in the office with Dr. Saunders and was last seen in May 2023. We have been asked to see the patient in consultation for non-STEMI and CHF. Patient examined at the bedside in the emergency room. Patient is currently incarcerated and there is a seafood technology specialist at the bedside. Patient states she has been feeling short of breath and feeling weak. She states this started about 2 days ago. She states that she was in court and afterwards they had to use a wheelchair to get her back into the vehicle as she was too weak to walk. She also reports feeling dizzy and having pounding in her chest. She reports a sli ght cough. She denied having a fever previously to her knowledge. However patient was febrile this morning with a temperature of 100.2. She also reports lower extremity edema that started in the middle of December. She reports nausea yesterday that was relieved with Zofran. Patient was found to be anemic on admission with a hemoglobin of 7.7. Repeat 7.1. Last hemoglobin was back in 2021 but was normal at 12.3. The patient denies a history of anemia. Unsure if this anemia is new or has been present for a while as her last blood work was not since 2021. She denies any blood in her stool or urine. She does report decreased urine output. Patient was also found to have acute kidney injury with a creatinine of 2.96. Back in 2021, patient's kidney function was within normal limits. Patient was also found to have elevated troponins and was started on IV heparin. She denied having any chest pain or pressure. Patient is a former cigarette smoker and has not smoked in 55 days since being in longterm. She denies alcohol abuse many years ago but nothing recently. She denies drug use in cluding marijuana. DIAGNOSTICS: - EKG reveals sinus mechanism with left bundle branch block. - Chest xray consolation of findings favor CHF over pneumonia. Correlate clinically. Underlying COPD. Loop recorder device seen. Bilateral consolidation and small effusion with diffuse interstitial pattern.. - Laboratory data: WBC 6.2. Hemoglobin 7.1. Platelet count 300. Sodium 133. Potassium 4.9. BUN 56. Creatinine 2.96. AST 55. ALT 35. proBNP 25,100. Troponin 1.290. 1.760. 2.210. - Current home cardiac medications include Lipitor 20 mg at night. - Most recent echocardiogram obtained in February 2022 revealed ejection fraction 55 to 60%, mild MR, mild TR - Patient underwent dobutamine stress test in March 2023 at the office which was negative for ischemia 02/08/2024 Patient examined this morning at the bedside. Patient states her shortness of breath has improved today. She complains of mild chest discomfort when she feels short of breath. She states the chest pain is worse with deep inspiration. Her lower extremity edema has improved from yesterday. She has been transition to IV Lasix drip per nephrology. Echocardiogram completed revealing ejection fraction 20 to 25%, mild pulm hypertension, moderate to severe mitral regurgitation, mild aortic regurgitation, trace to mild tricuspid regurgitation and small pericardial effusion. 02/09/2024 Patient examined this morning at the bedside. Patient continues to report shortness of breath at the time of examination. She reports that she developed a cough also today. She reports chest discomfort that is worse with deep insp iration. She remains on a Lasix drip at 5 mg an hour. Creatinine 3.41. Hemoglobin 7.4. Blood pressure is stable. Telemetry reveals sinus mechanism. 02/10/2024 Patient examined this morning at the bedside. Patient continues to report shortness of breath. She continues to have a cough. She denies any chest discomfort at the time of examination. She remains on a Lasix drip at 5 mg an hour. Creatinine today is 3.44. Hemoglobin 7.2. 02/11/2024 Patient examined this morning at the bedside. Patient reports that she slept well overnight. She currently denies any chest pain or pressure. She reports improvement in her shortness of breath and also with her cough. Renal function worsened today at 3.71. She remains on IV Lasix at 10 mg an hour. 02/11 Patient seen and examined. Patient still minutes to significant shortness breath mainly with exertion. She occasionally has some chest tightness however not clearly associated with exertion and more feels like she cannot take a deep breath in. Creatinine stable at 3.8. She is receiving 1 unit of packed red blood cell for hemoglobin 6.7. Remains on IV diuretics. 02/12 Patient is seen today in follow-up. She states she may feel a little bit better after blood transfusion but continues to feel tired, shortness of breath have some chest pain with exertion. Blood pressure 125/80, heart rate between 72 and 91, pulse ox 95% on room air. Repeat blood work reveals hemoglobin 7.4. BUN 83 creatinine 2.6. Discussed option of stress test in the next 1 to 2 days and patient is agreeable for this. 02/13 Patient complains of feeling tired, upset stomach. She has shortness of breath with minimal activity. She had an episode of chest pain last night but none now. Renal function is worsening with BUN of 87 creatinine 3.55. Sodium 135, potassium 4.6. 02/14 Lexiscan Cardiolite stress test came back abnormal with large area of fixed defect involving all segments of the myocardium suggestive of remote ischemia. Cannot exclude a tiny area of stress induced reversibility within the apex. Reduced wall motion activity with EF of only 21%. Results reviewed with patient and next option with cardiac catheterization discussed with the patient with understanding that patient does have abnormal renal function and would need to be cleared by nephrology. Dr. Berman will contact Dr. Lane regarding possible cardiac catheterization. Blood pressure 143/84, heart rate 93, pulse ox 95% on 2 L nasal cannula. Patient remains on IV Lasix drip at 10 mg/h. She has a negative fluid balance. She is on a fluid restriction of 1200 mL 02/15 Patient underwent cardiac catheterization today with Dr. Lane which revealed calcified coronary arteries. Severe triple-vessel disease. Right dominance. Mildly elevated LVEDP. She has been seen by CTS with tentative plan for CABG on Monday pending results of AFRICA. Patient will be scheduled tomorrow for AFRICA with Dr. Berman. Blood pressure 113/59, heart rate 96, pulse ox 93% on 2 L nasal cannula. Repeat blood work reveals BUN 85 creatinine 3.58. 02/17 Yesterday, patient underwent AFRICA which revealed aortic valve tricuspid and functioning normally. Mitral valve structurally normal with mild central secondary mitral regurgitation. Pulmonary vein flow has systolic dominance. Tricuspid valve appears to be normal with mild tricuspid regurgitation. Intra- atrial septum is intact with no evidence of PFO. Left atrial appendage free of clot. LV EF 35% with global hypokinesis. Patient is followed by cardiothoracic surgery and also nephrology. If patient is requiring dialysis, plan would be for patient to start dialysis prior to open heart surgery. Patient remains on Lasix drip per nephrology. Patient has a negative fluid balance of 1322. Repeat blood work reveals hemoglobin is 7.9. BUN 82 creatinine 3.39. Mild elevation in liver function test. PHYSICAL EXAM: VITAL SIGNS: Reviewed. GENERAL: Well-developed in no acute distress. HEENT: Head is normocephalic. Pupils are equal, round. Sclerae anicteric. Mucous membranes of the mouth are moist. Neck supple. No JVD or thyromegaly LUNGS: Respirations even and unlabored. Lungs essentially clear to auscultation bilaterally. HEART: Regular rate and rhythm. S1 and S2 heard. ABDOMEN: Soft. Nondistended. Nontender. EXTREMITIES: No clubbing or cyanosis. Peripheral pulses intact. 2+ bilateral lower extremity edema NEUROLOGIC: Awake and alert. Oriented x 3. ASSESSMENT: Acute heart failure with reduced EF, 20 to 25% New onset cardiomyopathy, ischemic Non-STEMI Left bundle branch block Acute kidney injury, renal function was fairly normal in 2021 Anemia, acute anemia versus anemia of chronic disease due to renal failure, duration of anemia/EDWINA unknown History of hypertension History of CVA x 2 Diabetes Hypothyroidism Former nicotine dependence Minimally elevated LFTs PLAN: Continue current cardiac medications Nephrology following. Continue IV Lasix infusion per nephrology. Daily weights, accurate intake and output, and monitoring of kidney function Consult with CTS appreciated. Surgery is tentatively on hold if patient requi res hemodialysis, to start this prior to open heart surgery. Further recommendations pending patient course. Nurse practitioner note has been reviewed, I agree with documented findings and plan of care. Patient was seen and examined. Objective - Vital Signs Vital signs: Vital Signs Temp 97.8 F 02/18/24 03:59 Pulse 84 02/18/24 12:02 Resp 16 02/18/24 08:00 BP 114/61 02/18/24 08:00 Pulse Ox 94 L 02/18/24 08:00 FiO2 Intake & Output 02/17/24 02/18/24 02/18/24 18:59 06:59 18:59 Intake Total 590 662.5 Output Total 1400 1175 Balance -810 -512.5 Intake: IV 50 Intake, IV Titration 188.5 Amount Furosemide 100 mg In 188.5 Sodium Chloride 0.9% 90 ml @ 10 MG/HR 10 mls/hr IV .Q10H [facility] Rx#: [id number] Oral 540 474 Output: Urine 1400 1175 Uretheral ([place]) 125 Other: Voiding Method Indwelling Catheter Indwelling Catheter Indwelling Catheter - Labs CBC & Chem 7: 02/18/24 08:22 02/18/24 08:22 Labs: Abnormal Lab Results - Last 24 Hours (Table) 02/17/24 02/17/24 02/17/24 Range/Units 13:02 16:16 19:57 RBC (3.80-5.40) m/uL Hgb (11.4-16.0) gm/dL Hct (34.0-46.0) % Sodium (137-145) mmol/L BUN (7-17) mg/dL Creatinine (0.52-1.04) mg/dL Glucose (74-99) mg/dL POC Glucose (mg/dL) 196 H 149 H 183 H (70-110) mg/dL Calcium (8.4-10.2) mg/dL AST (14-36) U/L ALT (4-34) U/L Alkaline Phosphatase (38-126) U/L Total Protein (6.3-8.2) g/dL Albumin (3.5-5.0) g/dL 02/18/24 02/18/24 02/18/24 Range/Units 03:09 08:22 08:22 RBC 2.61 L (3.80-5.40) m/uL Hgb 7.9 L (11.4-16.0) gm/dL Hct 25.5 L (34.0-46.0) % Sodium 135 L (137-145) mmol/L BUN 82 H (7-17) mg/dL Creatinine 3.39 H (0.52-1.04) mg/dL Glucose 104 H (74-99) mg/dL POC Glucose (mg/dL) 64 L (70-110) mg/dL Calcium 7.9 L (8.4-10.2) mg/dL AST 46 H (14-36) U/L ALT 57 H (4-34) U/L Alkaline Phosphatase 245 H (38-126) U/L Total Protein 5.4 L (6.3-8.2) g/dL Albumin 2.3 L (3.5-5.0) g/dL 02/18/24 Range/Units 11:41 RBC (3.80-5.40) m/uL Hgb (11.4-16.0) gm/dL Hct (34.0-46.0) % Sodium (137-145) mmol/L BUN (7-17) mg/dL Creatinine (0.52-1.04) mg/dL Glucose (74-99) mg/dL POC Glucose (mg/dL) 215 H (70-110) mg/dL Calcium (8.4-10.2) mg/dL AST (14-36) U/L ALT (4-34) U/L Alkaline Phosphatase (38-126) U/L Total Protein (6.3-8.2) g/dL Albumin (3.5-5.0) g/dL
--- NOTE | 2024-02-18 13:32 | XR ---
EXAMINATION TYPE: XR chest 1V portable DATE OF EXAM: 02/18/2024 Comparison: 02/14/2024 Clinical History: 58-year-old female CHF Findings: Loop recorder device projects at the left base. Heart mildly enlarged. Diffuse interstitial opacities are similar. Hazy lower lung densities suggest small effusions. Impression: Similar CHF with mild interstitial pulmonary edema. Small effusions.
--- NOTE | 2024-02-18 13:46 | P.PN ---
Subjective Progress Note Date: 02/18/24 Principal diagnosis: Acute hypoxic respiratory failure secondary to acute systolic congestive heart failure and ischemic cardiomyopathy Patient is a 58-year-old white female with past medical history significant for COPD, chronic ongoing tobacco dependence, CVA/TIA, diabetes mellitus, hyperlipidemia, hypertension, hypothyroidism, fibromyalgia, GERD, among other things. Patient presented back on 02/06/2024 from [facility] with chief complaint of increased lower extremity swelling. She states that she first noted the swelling back in December,. It is progressively worsened, she states she has gained approximately 20 pounds over the last 2 months. Approximately 10 days ago she was awoken at night with substernal chest pain. Nonradiating. With associated shortness of breath and sweating. Lasted up to 15 minutes. She is also had a nonproductive cough. She was noted to be febrile this admission. She is empirically covered on antibiotics. On arrival to the emergency room, she was noted to have elevated troponins of 1.29, 1.76, and 2.2. EKG showed normal sinus rhythm with left bundle branch block, without any other acute ischemic changes. No previous EKG for comparison. She was started on heparin infusion per protocol. She also was on a Nitropaste. Echocardiogram showed a severely impaired left ventricular ejection fraction of 20 to 25%, and moderate to severe mitral regurgitation. Today, she was started on a Lasix infusion at 5 mg/h. Heparin infusion was stopped as the patient is anemic. Patient denies any acute blood loss. No vaginal bleeding. No juan blood in stool. No melena. No nausea or vomiting or hematic emesis. Last colonoscopy was reportedly around 10 years ago. She is currently lying in bed, on 2 L/min nasal cannula. Chest x-ray on admission shows diffuse interstitial edema as well as bilateral consolidation and small effusions. Findings consistent with congestive heart failure. NT proBNP was elevated 25,000. Patient not making much urine despite Lasix infusion. Patient did have 1 episode of fever during her admission with a Tmax of 100.2 F. She was empirically she was empirically placed on Rocephin. Negative for influenza, RSV, COVID. Most recent BMP from today: Sodium 130, potassium 5.1, chloride 104, serum bicarb down to 17, BUN 63, creatinine worsening and 3.34, glucose 229. LFTs mildly elevated. Hepatitis panel nonreactive. Overall, hemodynamically stable. On 02/08/2024, seen the patient for a follow-up. The patient is currently on 3 L of oxygen by nasal cannula with a pulse ox of 94%. She should be able to wean down. She is on Lasix drip at 5 mg an hour and the patient is producing adequ ate amount of urine output. Her fluid balance is negative. As mentioned, the patient is post non-ST segment ovation myocardial infarction the patient is being seen by cardiology. The patient has severe cardiomyopathy with impaired left ventricular ejection fraction. Her blood work from today shows a BUN of 66 with a creatinine of 3.41 and this is consistent with an acute on chronic kidney injury. Sodium levels at 129, potassium is at 4.4 with a WBC count of 6.3 and a hemoglobin of 7.4. The patient is on IV Rocephin as an empiric antibiotic coverage. She is currently afebrile. The patient is being seen by cardiology. The patient will be kept on IV Lasix. Not a candidate for any invasive cardiac workup due to her acute on top of chronic kidney injury at this point in time. Her comorbidities are multiple. Unsure if she does have underlying coronary artery disease. Nevertheless, she has previous history of CVA, diabetes mellitus type 2, hypothyroidism and CHF. She was in [facility] for being arrested due to possession of amphetamines. Vasculitis workup was negative including a n egative EDSON and a negative P and C ANCA. Hepatitis profile was also negative. On 02/10/2024, the patient is being seen for a follow-up. No new complaints. No significant shortness of breath at rest. Remains on Lasix drip. Producing adequate amount of urine output. Blood work from today was noticed that the patient has a white cell count of 6 with a hemoglobin of 7.2 and a PET scan at 360. BUN 69 with a creatinine of 3.4 and a sodium levels at 129. The patient is being seen by cardiology and nephrology addition. She remains on Lasix drip which will be increased up to 10 mg an hour. Not a candidate for further cardiac catheterization based on underlying renal dysfunction. 02/11/2024, the patient is being seen for a follow-up. No new complaints. Monitor for improvement in her condition. She remains on 2 L of oxygen by nasal cannula. Fluid balance is -90 cc over the past 24 hours. Suboptimal response to diuretics and the patient remains on Lasix at 10 mg an hour. BUN 71 with a creatinine of 3.7, slightly worse compared to yesterday. Sodium is at 131. The patient denies having any chest pain. No significant hypotension. Remains on aspirin. Remains on metoprolol 25 mg p.o. twice a day. Cardiology on the case. She has significant cardiomyopathy. She is post acute non-STEMI. Not a candidate for cardiac catheterization due to renal impairment. The patient is seen today February 12, 2024 in follow-up on the selective care unit. She is currently sitting up in bed. Awake and alert in no acute distress. She is maintaining O2 saturation in the 90s on 3 L nasal cannula. She is afebrile. Hemodynamically stable. Today's chest x-ray reviewed reveals diffuse bilateral infiltrates with small effusion or early congestive heart failure. Hemoglobin 6.7. 1 unit of packed blood cells have been ordered. Platelets 362. White count 6.1. Sodium 131. Potassium 4.2. Bicarb 21. BUN 80. Creatinine 3.89. Glucose 286. She remains on. Antibiotics in the form of ceftriaxone. Remains on a Lasix drip at 5 mg an hour. Currently in a -178 mL balance. The patient is seen today February 13, 2024 in follow-up on the selective care unit. She is awake and alert in no acute distress. Sitting up in bed. Blood and urine cultures revealed no growth. White count 6.2. Hemoglobin 7.4. Platelets 01/05/1978. Sodium 133. Potassium 3.9. Bicarb 21. BUN 83. Creatinine 3.60. Glucose 154. She remains on a Lasix drip currently at 5 mg/h. She remains on a heparin drip. Receiving sodium bicarb tablets. Continued on bronchodilators. Continued on antibiotics in the form of ceftriaxone. She is currently in a negative balance. Voided 1 L today. The patient is seen today February 14, 2024 in follow-up on the selective care unit. She is currently sitting up in bed. Awake and alert in no acute distress. She is maintaining good O2 saturations in the 90s on 3 L/min per nasal cannula. She is afebrile. Hemodynamically stable. Follow-up chest x-ray continues to show diffuse bilateral infiltrate with small effusions. She is status post 1 unit of packed red blood cells this admission. Last hemoglobin 7.7. Sodium 135. Potassium 4.6. Bicarb 20. BUN 87. Creatinine 3.55. Glucose 358. She is continued on bronchodilators. Antibiotics in form of ceftriaxone. She remains on a Lasix drip at 10 mg/h. Receiving sodium bicarb tablets. Currently -688 mL balance. Nephrology is following. The patient is seen today February 15, 2024 in follow-up on the selective care unit. She is currently sitting up in bed awake and alert in no acute distress. She is maintaining O2 saturations in the mid 90s on 2 L/min per nasal cannula. She is afebrile. Hemodynamically stable. White count 6.8. Hemoglobin 8.6. Platelets 438. Sodium 135. Potassium 4.0. Bicarb 21. BUN 84. Creatinine 3.41. Glucose 171. She remains on a Lasix drip at 10 mg/h. Continued on a heparin drip. Plan to -1 L balance. Stress testing today reveals a large area of fixed defect involving all segments of the myocardium suggestive of remote ischemia. Could not exclude a tiny area of stress-induced reversibility within the apex. Reduced wall motion activity with ejection fraction of only 21%. Patient was seen and examined today on 02/16/2024 patient is feeling better today, continues to diurese with a Lasix drip, remains in negative fluid balance, patient underwent cardiac catheterization today and she was found to have severe triple-vessel coronary artery disease, now she is being evaluated by surgery, patient does have severe LV dysfunction, she is definitely high surgical risk, but no absolute contraindication to surgery.Basic metabolic profile is normal BUN is 85 creatinine 3.58 however the patient may require hemodialysis, and she will need nephrology clearance she will also need a bedside spirometry/FEV1 for preoperative pulmonary clearance in the meantime we will continue diuretics/Lasix drip Patient was reevaluated today on 02/17/2024, remains on Lasix drip, remains in negative fluid balance, patient is very well aware that she had abnormal cardiac catheterization and now she is being evaluated for possible myocardial revascularization. Patient remains on oxygen at 2 L/min and her O2 sats is 97%, her PFT showed severe obstructive lung disease, however not severe enough to not consider myocardial revascularization if the patient is cleared by other con sultants including nephrology and cardiology. Patient has been a smoker over the years, she had at least a [id number] smoking history. Remind you patient had a PFT with chest x-ray still showing evidence of pulmonary edema which will definitely compromise her PFT will likely reflect more restriction than obstructive lung disease. WBC count today is 4.9 hemoglobin 7.7 electrolytes are normal BUN is 85 creatinine 3.59 Patient was reevaluated today on 02/18/2024, remains on Lasix drip, 10 mg/h, remains in constant negative fluid balance, chest x-ray today is definitely showing improvement but nonetheless her pulmonary edema is not completely resolved. Patient was being considered for CABG however the plan is presently on hold because of her overall pulmonary status and possibly the patient could benefit from more optimization of her congestive heart failure. In the meantime she seems to be doing better with the Lasix drip. Patient is also maintained on bronchodilators for her underlying COPD. Objective - Vital Signs Vital signs: Vital Signs Temp 97.8 F 02/18/24 03:59 Pulse 84 02/18/24 12:02 Resp 16 02/18/24 08:00 BP 114/61 02/18/24 08:00 Pulse Ox 94 L 02/18/24 08:00 FiO2 Intake & Output 02/17/24 02/18/24 02/18/24 18:59 06:59 18:59 Intake Total 590 662.5 Output Total 1400 1175 Balance -810 -512.5 Intake: IV 50 Intake, IV Titration 188.5 Amount Furosemide 100 mg In 188.5 Sodium Chloride 0.9% 90 ml @ 10 MG/HR 10 mls/hr IV .Q10H [facility] Rx#: [id number] Oral 540 474 Output: Urine 1400 1175 Uretheral (Saldaña) 125 Other: Voiding Method Indwelling Catheter Indwelling Catheter Indwelling Catheter - Exam GENERAL EXAM: Alert, 58-year-old female, sitting up in bed, on 3 L nasal cannula HEAD: Normocephalic and atraumatic EYES: Normal reaction of pupils, equal size. NOSE: Clear with pink turbinates. THROAT: No erythema or exudates. NECK: No masses, no JVD. CHEST: No chest wall deformity. LUNGS: Equal air entry with bibasilar crackles and mild and expiratory wheezes heard bilaterally. CVS: S1 and S2 normal with no audible murmur, regular rhythm. No extra heart sounds ABDOMEN: No hepatosplenomegaly, active bowel sounds, no guarding or rigidity. SKIN: No rashes CENTRAL NERVOUS SYSTEM: Alert oriented x 3 no gross focal deficit EXTREMITIES: Trace of bipedal edema - Labs CBC & Chem 7: 02/18/24 08:22 02/18/24 08:22 Labs: Abnormal Lab Results - Last 24 Hours (Table) 02/17/24 02/17/24 02/18/24 Range/Units 16:16 19:57 03:09 RBC (3.80-5.40) m/uL Hgb (11.4-16.0) gm/dL Hct (34.0-46.0) % Sodium (137-145) mmol/L BUN (7-17) mg/dL Creatinine (0.52-1.04) mg/dL Glucose (74-99) mg/dL POC Glucose (mg/dL) 149 H 183 H 64 L (70-110) mg/dL Calcium (8.4-10.2) mg/dL AST (14-36) U/L ALT (4-34) U/L Alkaline Phosphatase (38-126) U/L Total Protein (6.3-8.2) g/dL Albumin (3.5-5.0) g/dL 02/18/24 02/18/24 02/18/24 Range/Units 08:22 08:22 11:41 RBC 2.61 L (3.80-5.40) m/uL Hgb 7.9 L (11.4-16.0) gm/dL Hct 25.5 L (34.0-46.0) % Sodium 135 L (137-145) mmol/L BUN 82 H (7-17) mg/dL Creatinine 3.39 H (0.52-1.04) mg/dL Glucose 104 H (74-99) mg/dL POC Glucose (mg/dL) 215 H (70-110) mg/dL Calcium 7.9 L (8.4-10.2) mg/dL AST 46 H (14-36) U/L ALT 57 H (4-34) U/L Alkaline Phosphatase 245 H (38-126) U/L Total Protein 5.4 L (6.3-8.2) g/dL Albumin 2.3 L (3.5-5.0) g/dL Assessment and Plan Assessment: Impression: Severe triple-vessel coronary artery disease based on cardiac catheterization today 02/16/2024 Acute non-ST elevation LA. Stress testing today 02/15/2024 reveals a large area of fixed defect involving all segments of the myocardium suggestive of remote ischemia. Cannot exclude a tiny area of stress-induced reversibility within the apex. Reduced wall motion activity with ejection fraction of only 21%. Remains on heparin drip. Acute hypoxemic respiratory failure, currently on 2 L/min nasal cannula, secondary to exacerbation of systolic congestive heart failure and above, Chest x-ray on admission shows diffuse interstitial edema as well as bilateral consolidation and small effusions. Findings consistent with congestive heart failure, however, superimposed community-acquired bibasilar pneumonia is not e xcluded. Ischemic cardiomyopathy with an estimated left ventricular ejection fraction severely impaired at 20 to 25% as well as moderate to severe mitral valve regurgitation, currently on Lasix infusion at 5 mg/h, responding to diuresis with Lasix drip. Negative fluid balance. Severe mitral valve regurgitation Acute febrile illness, recovered Normocytic normochromic anemia, current hemoglobin 7.4, received 1 unit of packed red blood cell Acute kidney injury, likely cardiorenal, worsening creatinine, the patient is producing adequate amount of urine output Metabolic non-anion gap acidosis, secondary to above Chronic obstructive pulmonary disease, stable Diabetes mellitus type 1 History of hyperlipidemia History of hypertension History of CVA/TIA History of hypothyroidism History of fibromyalgia History of GERD Mildly elevated LFTs, hepatitis panel nonreactive Former tobacco smoker, 1/2 pack/day or approximately 15-year pack history Recommendation: Continue Lasix drip Continue bronchodilators Nephrology to clear for potential surgery if to be done. Continue to optimize pulmonary status before surgery patient is definitely high surgical risk. Not quite ready for surgery at this point in time. Discussed her condition with Dr. Gillette yesterday over the phone. Continue fluid restriction 1200 mL/day Continue anticoagulation therapy/heparin Will continue to follow Time with Patient: Less than 30
[2024-02-18 16:30] LABS: Glucose,Whole Blood 349 mg/dL (70-110)
--- NOTE | 2024-02-18 17:53 | P.PN ---
Subjective Progress Note Date: 02/18/24 58 years old female with past medical history of multiple medical problems as below She has been incarcerated for 52 days, there is officer at bedside. Patient presents because of shortness of breath and exertional dyspnea has for the last 2 days, she states she hears herself wheezing when she lies down. Currently she is breathing quietly. She is complaining for mild chest pain on the left side, nonradiating nonspecific, feels much better now and very mild. She follow-up with her forest aide Dr. Donal Herrera and cap and stud machine operator Dr. Babb who examined her about 2 months ago where she has some mild ulcer In the bottom of her right total This morning patient has low-grade fever 100.2 She is also mildly tachypneic around 22 She is saturating 93% on 2 L oxygen via nasal cannula Labs reviewed showing hemoglobin of 7.7, rest of CBC is unremarkable BMP liver enzymes not elevated. INR 0.9. Lactic 0.9 proBNP is elevated 25 100 EKG showing sinus rhythm at [address]-T changes, no left bundle branch block 02/17/2024 --Patient is seen and evaluated in room at bedside; remains on Lasix drip, remains in negative fluid balance - patient underwent cardiac catheterization which revealed severe triple-vessel coronary artery disease and now she is being evaluated for possible myocardial revascularization. Patient remains on oxygen at 2 L/min and her O2 sats is 97%, her PFT showed severe obstructive lung disease, however not severe enough to not consider myocardial revascularization if the patient is cleared by other consultants including nephrology and cardiology. Patient has been a smoker over the years, she had at least a [id number] smoking history. Remind you patient had a PFT with chest x-ray still showing evidence of pulmonary edema which will definitely compromise her PFT will likely reflect more restriction than obstructive lung disease. WBC count today is 4.9 hemoglobin 7.7 electrolytes are normal BUN is 85 creatinine 3.59 02/18/2024 Patient is seen and evaluated in room at bedside; sitting up in bed; ports stable breathing - patient underwent AFRICA which revealed aortic valve tricuspid and functioning normally. Mitral valve structurally normal with mild central secondary mitral regurgitation. Pulmonary vein flow has systolic dominance. Tricuspid valve appears to be normal with mild tricuspid regurgitation. Intra-atrial septum is intact with no evidence of PFO. Left atrial appendage free of clot. LV EF 35% with global hypokinesis. -- Patient is followed by cardiothoracic surgery and also nephrology. Nephrology not recommending any indication or need for hemodialysis. Patient r vito on Lasix drip per nephrology. Patient has a negative fluid balance of 1322. Repeat blood work reveals hemoglobin is 7.9. BUN 82 creatinine 3.39. Mild elevation in liver function test. -Plan for surgery once clinically optimized Objective - Vital Signs Vital signs: Vital Signs Temp 97.8 F 02/18/24 03:59 Pulse 84 02/18/24 12:02 Resp 16 02/18/24 08:00 BP 114/61 02/18/24 08:00 Pulse Ox 94 L 02/18/24 08:00 FiO2 Intake & Output 02/17/24 02/18/24 02/18/24 18:59 06:59 18:59 Intake Total 590 662.5 Output Total 1400 1175 Balance -810 -512.5 Intake: IV 50 Intake, IV Titration 188.5 Amount Furosemide 100 mg In 188.5 Sodium Chloride 0.9% 90 ml @ 10 MG/HR 10 mls/hr IV .Q10H [facility] Rx#: [id number] Oral 540 [id number] Output: Urine 1400 1175 Uretheral ([place]da[place]) 125 Other: Voiding Method Indwelling Catheter Indwelling Catheter Indwelling Catheter - Exam GENERAL: The patient is alert and oriented x3, not in any acute distress. Ill appearance, pale appearing HEENT: Pupils are round and equally reacting to light. EOMI. Normocephalic, atraumatic. No pharyngeal erythema. No thyromegaly. CARDIOVASCULAR: S1 and S2 present. No murmurs, rubs, or gallops. PULMONARY: Decreased breath sounds bilaterally ABDOMEN: Soft, nontender, nondistended, normoactive bowel sounds. No palpable organomegaly. Saldaña catheter in place MUSCULOSKELETAL: No joint swelling or deformity. EXTREMITIES: No cyanosis, clubbing, 1+ bilateral pitting leg edema. NEUROLOGICAL: Gross neurological examination did not reveal any focal deficits. - Labs CBC & Chem 7: 02/18/24 08:22 02/18/24 08:22 Labs: Abnormal Lab Results - Last 24 Hours (Table) 02/17/24 02/17/24 02/17/24 Range/Units 13:02 16:16 19:57 RBC (3.80-5.40) m/uL Hgb (11.4-16.0) gm/dL Hct (34.0-46.0) % Sodium (137-145) mmol/L BUN (7-17) mg/dL Creatinine (0.52-1.04) mg/dL Glucose (74-99) mg/dL POC Glucose (mg/dL) 196 H 149 H 183 H (70-110) mg/dL Calcium (8.4-10.2) mg/dL AST (14-36) U/L ALT (4-34) U/L Alkaline Phosphatase (38-126) U/L Total Protein (6.3-8.2) g/dL Albumin (3.5-5.0) g/dL 02/18/24 02/18/24 02/18/24 Range/Units 03:09 08:22 08:22 RBC 2.61 L (3.80-5.40) m/uL Hgb 7.9 L (11.4-16.0) gm/dL Hct 25.5 L (34.0-46.0) % Sodium 135 L (137-145) mmol/L BUN 82 H (7-17) mg/dL Creatinine 3.39 H (0.52-1.04) mg/dL Glucose 104 H (74-99) mg/dL POC Glucose (mg/dL) 64 L (70-110) mg/dL Calcium 7.9 L (8.4-10.2) mg/dL AST 46 H (14-36) U/L ALT 57 H (4-34) U/L Alkaline Phosphatase 245 H (38-126) U/L Total Protein 5.4 L (6.3-8.2) g/dL Albumin 2.3 L (3.5-5.0) g/dL 02/18/24 Range/Units 11:41 RBC (3.80-5.40) m/uL Hgb (11.4-16.0) gm/dL Hct (34.0-46.0) % Sodium (137-145) mmol/L BUN (7-17) mg/dL Creatinine (0.52-1.04) mg/dL Glucose (74-99) mg/dL POC Glucose (mg/dL) 215 H (70-110) mg/dL Calcium (8.4-10.2) mg/dL AST (14-36) U/L ALT (4-34) U/L Alkaline Phosphatase (38-126) U/L Total Protein (6.3-8.2) g/dL Albumin (3.5-5.0) g/dL Assessment and Plan Assessment: Acute congestive heart failure with systolic dysfunction ejection fraction of 20-25 % New onset cardiomyopathy. Ischemic versus nonischemic. Acute hypoxemic respiratory failure multifactorial CHF, multifocal pneumonia. Multifocal pneumonia Non-ST elevated DC Acute kidney injury due to ATN secondary to cardiorenal. Patient is nonoliguric Acute on chronic anemia of chronic disease Acute urinary tract infection, urine culture showing skin or genital kwesi Chronic kidney disease stage II with acute kidney injury Urinary retention status post Saldaña catheter placement Diabetes mellitus type 2 Plan: In regards to hypoxemic respiratory failure, CHF exacerbation, continue patient on IV Lasix drip, continue to monitor intake and output continue with fluid restriction. Regards to multifocal pneumonia procalcitonin elevated continue. Completed ceftriaxone for 5 days on 02/13/2024 In regards to elevated troponin, continue current management medically, not a candidate for cardiac catheterization secondary to renal failure and anemia. Lexiscan stress test was done today.. In regards to diabetes mellitus Accu-Cheks ACHS continue patient on correctional insulin, NovoLog and Levemir In regards to anemia, continue to monitor H&H transfuse if hemoglobin less than 7, 1 unit of packed RBC ordered, fecal occult blood test ordered. Continue to titrate oxygen to room air.
[2024-02-18 20:17] LABS: Glucose,Whole Blood 160 mg/dL (70-110)
[2024-02-19 06:20] LABS: Glucose,Whole Blood 204 mg/dL (70-110)
[2024-02-19] MEDS: metOLazone 5 MG TAB PO ONE (09:03)
[2024-02-19 09:15] LABS: Basophils % (A) 1 %; Eosinophils # (A) 0.2 k/uL (0-0.7); Eosinophils % (A) 4 %; HCT 26.6 % (34.0-46.0); HGB 8.3 gm/dL (11.4-16.0); Hypochromasia Slight; Lymphocytes # (A) 1.5 k/uL (1.0-4.8); Lymphocytes % (A) 29 %; MCH 29.9 pg (25.0-35.0); MCHC 31.3 g/dL (31.0-37.0); MCV 95.7 fL (80.0-100.0); Mean Platelet Volume 8.3; Monocytes # (A) 0.5 k/uL (0-1.0); Monocytes % (A) 9 %; Neutrophils # (A) 2.8 k/uL (1.3-7.7); Neutrophils % (A) 56 %; Platelet Count 403 k/uL (150-450); RBC 2.78 m/uL (3.80-5.40); RDW 14.3 % (11.5-15.5); WBC 5.1 k/uL (3.8-10.6)
[2024-02-19 10:35] LABS: Glucose,Whole Blood 57 mg/dL (70-110)
--- NOTE | 2024-02-19 10:52 | P.PN ---
Subjective Progress Note Date: 02/19/24 Principal diagnosis: Triple-vessel coronary artery disease, non-STEMI this admission, acute heart failure with reduced ejection fraction, new onset ischemic cardiomyopathy, moderate to severe mitral regurgitation, acute on chronic kidney disease, acute anemia. History of hypertension, hyperlipidemia, hypothyroid, diabetes mellitus, CVA, hepatitis as a child, CKD stage IV, previous tobacco dependence with recent cessation, severe COPD, previous methamphetamine use with recent cessation, family history of coronary artery disease The patient was seen and examined this morning sitting up in bed on the cardiac stepdown unit in no acute distress, police sergeant precinct present. Patient currently denies any chest pain or increased shortness of breath. She does state her shortness of breath gets worse with any activity, bilateral pleural effusions found on CT scan, remains on continuous IV Lasix. She underwent transesophageal echocardiogram which demonstrated only mild mitral regurgitation with EF 35% and global hypokinesis. Her bedside spirometry demonstrated severe obstructive and restrictive pulmonary disease, Dr. Polk would like a full pulmonary function test prior to surgery. Initially plan was for surgery today, however discussion took place between Dr. Gillette and Dr. Polk as well as Dr. Gillette and Dr. Berman, patient was seen over the weekend by Dr. José, all feel patient needs more tuning up and maximization prior to surgery. Also, if there remains a strong suspicion that patient may need dialysis would prefer it start prior to surgery to help maximize patient. Re-calculated patient's STS risk with new information regarding mild mitral regurgitation and patient's mortality risk is less but she is still considered very high risk for mortality. Objective - Vital Signs Vital signs: Vital Signs Temp 97.5 F L 02/19/24 04:00 Pulse 72 02/19/24 04:00 Resp 16 02/19/24 04:00 BP 104/64 02/19/24 04:00 Pulse Ox 94 L 02/19/24 04:00 FiO2 Intake & Output 02/18/24 02/19/24 02/19/24 18:59 06:59 18:59 Intake Total 440 317.333 240 Output Total 700 1150 Balance -260 -832.667 240 Intake: Intake, IV Titration 200 77.333 Amount Furosemide 100 mg In 100 77.333 Sodium Chloride 0.9% 90 ml @ 10 MG/HR 10 mls/hr IV .Q10H [facility] Rx#: [id number] Sodium Chloride 0.9% 1, 100 000 ml @ 0 mls/hr [facility][id number] Oral 240 240 240 Output: Urine 700 1150 Other: Voiding Method Indwelling Catheter Indwelling Catheter # Bowel Movements 1 - Exam CONSTITUTIONAL: Appears comfortable, cooperative, no acute distress RESPIRATORY: Lungs sounds diminished bilaterally. Respirations even, nonlabored. Currently on 3 L nasal cannula with oxygen saturation 94%. Strong cough. CARDIOVASCULAR: S1, S2 present. Regular rate and rhythm, sinus rhythm on telemetry. Palpable peripheral pulses bilaterally. No edema present. No calf pain or tenderness noted GASTROINTESTINAL: Abdomen soft, nontender, nondistended. Active bowel sounds present 4 quadrants. Tolerating diet. Positive bowel movement this morning GENITOURINARY: Saldaña present draining clear, yellow urine. Output overnight 1850 mL in the last 24 hours INTEGUMENTARY: Skin is warm and dry NEUROLOGIC: Cranial nerves II through XII intact MUSKULOSKELETAL: Able to move all extremities, strength equal bilaterally PSYCHIATRIC: Alert and oriented to person place and time, appropriate affect, intact judgment and insight - Allied health notes Allied health notes reviewed: nursing - Labs CBC & Chem 7: 02/19/24 07:58 02/18/24 08:22 Labs: Abnormal Lab Results - Last 24 Hours (Table) 02/18/24 02/18/24 02/18/24 Range/Units 11:41 16:28 20:16 RBC (3.80-5.40) m/uL Hgb (11.4-16.0) gm/dL Hct (34.0-46.0) % POC Glucose (mg/dL) 215 H 349 H 160 H (70-110) mg/dL 02/19/24 02/19/24 Range/Units 06:19 07:58 RBC 2.78 L (3.80-5.40) m/uL Hgb 8.3 L (11.4-16.0) gm/dL Hct 26.6 L (34.0-46.0) % POC Glucose (mg/dL) 204 H (70-110) mg/dL Microbiology - Last 24 Hours (Table) 02/16/24 18:31 Nasal Screen MRSA/MSSA - Final Nasal Swab Staphylococcus aureus,Not MRSA Assessment and Plan Assessment: Triple-vessel coronary artery disease, non-STEMI this admission Acute heart failure with reduced ejection fraction, 20-25%, 35% on A[place] New onset ischemic cardiomyopathy Moderate to severe mitral regurgitation on transthoracic echocardiogram, mild mitral regurgitation on AFR[place] Acute on chronic kidney disease Acute anemia Hypertension Hyperlipidemia, treated, cholesterol 150, LDL 72.8 Hypothyroid, TSH 1.73 Diabetes mellitus, hemoglobin A1c 7.1% CVA Hepatitis as a child CKD Previous tobacco dependence with recent cessation Severe COPD, preoperative FEV1 27% of predicted Previous methamphetamine use with recent cessation Family history of coronary artery disease with sister having multiple stents Plan: Continue to maximize medical therapy with aspirin, statin, beta-alex, IV Lasix Continue preoperative teaching Increase activity as tolerated Encourage incentive spirometry use Aggressive risk factor management Appreciate nephrology recommendations, if patient is going to be a planned dialysis patient would prefer dialysis start prior to surgery Management of other comorbidities per internal medicine, cardiology, pulmonology, nephrology More recommendations to follow
[2024-02-19 10:53] LABS: Glucose,Whole Blood 69 mg/dL (70-110)
--- NOTE | 2024-02-19 11:07 | P.PN ---
Subjective This is a pleasant 58 years old female with past medical history of multiple medical problems as below She has been incarcerated for 52 days, there is officer at bedside. Patient presents because of shortness of breath and exertional dyspnea has for the last 2 days, she states she hears herself wheezing when she lies down. Currently she is breathing quietly. She is complaining for mild chest pain on the left side, nonradiating nonspecific, feels much better now and very mild. She has occasional cough but no phlegm. Also she is complaining from upset stomach but no diarrhea or vomiting She complains from decreased urination but no dysuria or urgency. She has mild headache feels generally weak but no dizziness or blurry vision. She used to smoke half pack per day before she got incarcerated No alcohol or illicit drugs. She follow-up with her turbine inspector Dr. Donal Herrera and jacquard twine polisher operator Dr. Babb who examined her about 2 months ago where she has some mild ulcer In the bottom of her right total This morning patient has low-grade fever 100.2 She is also mildly tachypneic around 22 She is saturating 93% on 2 L oxygen via nasal cannula Labs reviewed showing hemoglobin of 7.7, rest of CBC is unremarkable BMP liver enzymes not elevated. INR 0.9. Lactic 0.9 proBNP is elevated 25 100 EKG showing sinus rhythm at [address]-T changes, no left bundle branch block 02/17/2024 --Patient is seen and evaluated in room at bedside; remains on Lasix drip, remains in negative fluid balance - patient underwent cardiac catheterization which revealed severe triple-vessel coronary artery disease and now she is being evaluated for possible myocardial revascularization. Patient remains on oxygen at 2 L/min and her O2 sats is 97%, her PFT showed severe obstructive lung disease, however not severe enough to not consider myocardial revascularization if the patient is cleared by other consultants including nephrology and cardiology. Patient has been a smoker over the years, she had at least a [id number] smoking history. Remind you patient had a PFT with chest x-ray still showing evidence of pulmonary edema which will definitely compromise her PFT will likely reflect more restriction than obstructive lung disease. WBC count today is 4.9 hemoglobin 7.7 electrolytes are normal BUN is 85 creatinine 3.59 02/18/2024 Patient is seen and evaluated in room at bedside; sitting up in bed; ports stable breathing - patient underwent A[place] which revealed aortic valve tricuspid and functioning normally. Mitral valve structurally normal with mild central secondary mitral regurgitation. Pulmonary vein flow has systolic dominance. Tricuspid valve appears to be normal with mild tricuspid regurgitation. Intra-atrial septum is intact with no evidence of PFO. Left atrial appendage free of clot. LV EF 35% with global hypokinesis. -- Patient is followed by cardiothoracic surgery and also nephrology. Nephrology not recommending any indication or need for hemodialysis. Patient remains on Lasix drip per nephrology. Patient has a negative fluid balance of 1322. Repeat blood work reveals hemoglobin is 7.9. BUN 82 creatinine 3.39. Mild elevation in liver function test. -Plan for surgery once clinically optimized 02/19/2024 Patient looks more awake than admission, sitting up in bed. Prison officers at bedside Mentation at baseline. She talks freely. Denies chest pain or dyspnea at rest On presentation patient was found acute CHF and non-STEMI, workup showing triple-vessel coronary artery disease and patient will require bypass procedure with cardiothoracic surgery team on the case once medically optimized. Patient currently with fluid overload on Lasix drip, on admission it was 5 mg/h, currently increased to 10 mg/h. She is making around 1 L of urine output by yesterday. Saldaña catheter in place. She is also on aspirin 81 mg Hemoglobin 8.5, creatinine 3.3 compared to 2.7 on admission with baseline 0.9- 1.2. Liver enzymes mildly elevated since admission. Objective - Vital Signs Vital signs: Vital Signs Temp 97.5 F L 02/19/24 04:00 Pulse 80 02/19/24 09:41 Resp 16 02/19/24 04:00 BP 104/64 02/19/24 04:00 Pulse Ox 94 L 02/19/24 04:00 FiO2 Intake & Output 02/18/24 02/19/24 02/19/24 18:59 06:59 18:59 Intake Total 440 317.333 480 Output Total 700 1150 Balance -260 -832.667 480 Intake: Intake, IV Titration 200 77.333 Amount Furosemide 100 mg In 100 77.333 Sodium Chloride 0.9% 90 ml @ 10 MG/HR 10 mls/hr IV .Q10H [facility] Rx#: [id number] Sodium Chloride 0.9% 1, 100 000 ml @ 0 mls/hr IV .[facility] Rx#:[id number] Oral 240 240 480 Output: Urine 700 1150 Other: Voiding Method Indwelling Catheter Indwelling Catheter # Bowel Movements 1 - Exam -GENERAL: The patient is alert and oriented x3, not in any acute distress. Well developed, well nourished. Generally weak and lethargic HEENT: Pupils are round and equally reacting to light. EOMI. No scleral icterus. No conjunctival pallor. Normocephalic, atraumatic. No pharyngeal erythema. No thyromegaly. CARDIOVASCULAR: S1 and S2 present. No murmurs, rubs, or gallops. -PULMONARY: Chest is clear to auscultation, no wheezing , no crackles. Tachypnea -ABDOMEN: Soft, nontender, nondistended, normoactive bowel sounds. No palpable organomegaly. Saldaña catheter in place MUSCULOSKELETAL: No joint swelling or deformity. -EXTREMITIES: No cyanosis, clubbing, 1+ bilateral pitting leg edema. NEUROLOGICAL: Gross neurological examination did not reveal any focal deficits. SKIN: No rashes. no petechiae. - Labs CBC & Chem 7: 02/19/24 07:58 02/18/24 08:22 Labs: Abnormal Lab Results - Last 24 Hours (Table) 02/18/24 02/18/24 02/18/24 Range/Units 11:41 16:28 20:16 RBC (3.80-5.40) m/uL Hgb (11.4-16.0) gm/dL Hct (34.0-46.0) % POC Glucose (mg/dL) 215 H 349 H 160 H (70-110) mg/dL 02/19/24 02/19/24 02/19/24 Range/Units 06:19 07:58 10:34 RBC 2.78 L (3.80-5.40) m/uL Hgb 8.3 L (11.4-16.0) gm/dL Hct 26.6 L (34.0-46.0) % POC Glucose (mg/dL) 204 H 57 L (70-110) mg/dL 02/19/24 Range/Units 10:53 RBC (3.80-5.40) m/uL Hgb (11.4-16.0) gm/dL Hct (34.0-46.0) % POC Glucose (mg/dL) 69 L (70-110) mg/dL Microbiology - Last 24 Hours (Table) 02/16/24 18:31 Nasal Screen MRSA/MSSA - Final Nasal Swab Staphylococcus aureus,Not MRSA Assessment and Plan Assessment: Acute systolic CHF exacerbation, ejection fraction: 20 to 25% non-STEMI, ekg New left bundle branch block, secondary to triple-vessel coronary artery disease requiring CABG Mild hypoxic respiratory failure, improved Acute kidney injury on chronic kidney disease, nonoliguric Acute on chronic anemia of chronic disease Acute urinary tract infection, urine culture showing skin or genital kwesi. Resolved Diabetes mellitus with hypoglycemia Low-grade fever Nicotine dependence Chronic ulcers of the right big toe Chronic kidney disease stage II with acute kidney injury Plan: Cardiothoracic surgery team on the case with plan for bypass procedure for coronary artery disease Continue with IV Lasix, on 10 mg per hour, with monitoring renal function which is worse since admnisoin o Nephrology team consult Patient currently on aspirin Cardiology consult on the case Change Levemir dose 8 units twice daily. Labs and medication were reviewed.. Continue same treatment. Continue with symptomatic treatment. Resume home medication. Monitor labs and vitals. DVT and GI prophylaxis. Further recommendations as per clinical course of the patient DVT prophylaxis: heparin GI Prophylaxis: Pepcid Prognosis is guarded given her multiple disease of the heart kidneys
[2024-02-19 11:12] LABS: Glucose,Whole Blood 67 mg/dL (70-110)
--- NOTE | 2024-02-19 11:44 | P.PN ---
Subjective patient is seen for follow-up for acute kidney injury. Currently being diuresed. Patient is maintained on Lasix drip. serum creatinine stable at around 3.5-3.4 mg/dL. urine output at 2.5 L for 24 hours. no complaints of shortness of breath. Officer is present at bedside. Objective - Vital Signs Vital signs: Vital Signs Temp 97.5 F L 02/19/24 04:00 Pulse 80 02/19/24 09:41 Resp 16 02/19/24 04:00 BP 104/64 02/19/24 04:00 Pulse Ox 94 L 02/19/24 04:00 FiO2 Intake & Output 02/18/24 02/19/24 02/19/24 18:59 06:59 18:59 Intake Total 440 317.333 480 Output Total 700 1150 Balance -260 -832.667 480 Intake: Intake, IV Titration 200 77.333 Amount Furosemide 100 mg In 100 77.333 Sodium Chloride 0.9% 90 ml @ 10 MG/HR 10 mls/hr IV .Q10H [facility] Rx#: [id number] Sodium Chloride 0.9% 1, 100 000 ml @ 0 mls/hr IV .[facility] Rx#:[id number] Oral 240 240 480 Output: Urine 700 1150 Other: Voiding Method Indwelling Catheter Indwelling Catheter # Bowel Movements 1 - Exam patient is awake, comfortable, no acute distress Alert oriented 3 Examination of the heart S1 and S2 Examination of the lungs bilateral breath sounds are heard Abdomen is soft nontender Examination of lower extremities shows no significant edema. - Labs CBC & Chem 7: 02/19/24 07:58 02/18/24 08:22 Labs: Abnormal Lab Results - Last 24 Hours (Table) 02/18/24 02/18/24 02/18/24 Range/Units 11:41 16:28 20:16 RBC (3.80-5.40) m/uL Hgb (11.4-16.0) gm/dL Hct (34.0-46.0) % POC Glucose (mg/dL) 215 H 349 H 160 H (70-110) mg/dL 02/19/24 02/19/24 02/19/24 Range/Units 06:19 07:58 10:34 RBC 2.78 L (3.80-5.40) m/uL Hgb 8.3 L (11.4-16.0) gm/dL Hct 26.6 L (34.0-46.0) % POC Glucose (mg/dL) 204 H 57 L (70-110) mg/dL 02/19/24 02/19/24 Range/Units 10:53 11:10 RBC (3.80-5.40) m/uL Hgb (11.4-16.0) gm/dL Hct (34.0-46.0) % POC Glucose (mg/dL) 69 L 67 L (70-110) mg/dL Microbiology - Last 24 Hours (Table) 02/16/24 18:31 Nasal Screen MRSA/MSSA - Final Nasal Swab Staphylococcus aureus,Not MRSA Assessment and Plan Assessment: 1. Acute kidney injury secondary to ATN secondary to cardiorenal syndrome. Creatinine fairly stable at 3.4 . Creatinine as low as 0.98 dated March 01, 2022. No hydronephrosis noted on kidney ultrasound. Serologies negative. good urine output. Maintained on Lasix drip. 2. Acute on chronic systolic CHF with ejection fraction of 20 to 25% with moderate to severe mitral regurgitation and mild pulmonary hypertension. 3. Volume overload. Improving with diuresis. 4. Anemia. Iron deficiency noted. Status post IV iron. On Aranesp. GI following. Status post blood transfusion this admission. Also received IV DDAVP. 5. Metabolic acidosis secondary to acute kidney injury. On oral bicarb. Stable. 6. Hypervolemic hyponatremia. Also component of hypertonicity from hyperglycemia. Better. 7. Urinary retention status post Saldaña catheter placement. On Flomax. Plan: check labs today Continue with Lasix drip Repeat labs in a.m.
[2024-02-19 12:46] LABS: African American GFR (CKD) 17 (>60 ml/min/1.73 sqM); Anion Gap 8 mmol/L; Blood Urea Nitrogen 82 mg/dL (7-17); Calcium 8.2 mg/dL (8.4-10.2); Carbon Dioxide 28 mmol/L (22-30); Chloride 101 mmol/L (98-107); Glucose 80 mg/dL (74-99); Non-African American GFR(CKD) 14 (>60 ml/min/1.73 sqM); Potassium 3.5 mmol/L (3.5-5.1); Sodium 137 mmol/L (137-145)
[2024-02-19 12:54] LABS: Glucose,Whole Blood 126 mg/dL (70-110)
[2024-02-19] MEDS: HEPARIN SODIUM,PORCINE 5,000 UNIT/ML 1 ML VIAL SQ SCH (13:14)
--- NOTE | 2024-02-19 13:25 | P.PN ---
Subjective HISTORY OF PRESENT ILLNESS: This is a 58-year-old female with a past medical history significant for former nicotine dependence, hypertension, CVA, hypothyroidism, and diabetes. Patient follows in the office with Dr. Saunders and was last seen in May 2023. We have been asked to see the patient in consultation for non-STEMI and CHF. Patient e xamined at the bedside in the emergency room. Patient is currently incarcerated and there is a quantitative equity head at the bedside. Patient states she has been feeling short of breath and feeling weak. She states this started about 2 days ago. She states that she was in court and afterwards they had to use a wheelchair to get her back into the vehicle as she was too weak to walk. She also reports feeling dizzy and having pounding in her chest. She reports a slight cough. She denied having a fever previously to her knowledge. However patient was febrile this morning with a temperature of 100.2. She also reports lower extremity edema that started in the middle of December. She reports nausea yesterd ay that was relieved with Zofran. Patient was found to be anemic on admission with a hemoglobin of 7.7. Repeat 7.1. Last hemoglobin was back in 2021 but was normal at 12.3. The patient denies a history of anemia. Unsure if this anemia is new or has been present for a while as her last blood work was not since 2021. She denies any blood in her stool or urine. She does report decreased urine output. Patient was also found to have acute kidney injury with a creatinine of 2.96. Back in 2021, patient's kidney function was within normal limits. Patient was also found to have elevated troponins and was started on IV heparin. She denied having any chest pain or pressure. Patient is a former cigarette smoker and has not smoked in 55 days since being in intermediate. She denies alcohol abuse many years ago but nothing recently. She denies drug use including marijuana. DIAGNOSTICS: - EKG reveals sinus mechanism with left bundle branch block. - Chest xray consolation of findings favor CHF over pneumonia. Correlate clinically. Underlying COPD. Loop recorder device seen. Bilateral conso lidation and small effusion with diffuse interstitial pattern.. - Laboratory data: WBC 6.2. Hemoglobin 7.1. Platelet count 300. Sodium 133. Potassium 4.9. BUN 56. Creatinine 2.96. AST 55. ALT 35. proBNP 25,100. Troponin 1.290. 1.760. 2.210. - Current home cardiac medications include Lipitor 20 mg at night. - Most recent echocardiogram obtained in February 2022 revealed ejection fraction 55 to 60%, mild MR, mild TR - Patient underwent dobutamine stress test in March 2023 at the office which was negative for ischemia 02/08/2024 Patient examined this morning at the bedside. Patient states her shortness of breath has improved today. She complains of mild chest discomfort when she feels short of breath. She states the chest pain is worse with deep inspiration. Her lower extremity edema has improved from yesterday. She has been transition to IV Lasix drip per nephrology. Echocardiogram completed revealing ejection fraction 20 to 25%, mild pulm hypertension, moderate to severe mitral regurgitation, mild aortic regurgitation, trace to mild tricuspid regurgitation and small pericardial effusion. 02/09/2024 Patient examined this morning at the bedside. Patient continues to report shortness of breath at the time of examination. She reports that she developed a cough also today. She reports chest discomfort that is worse with deep inspiration. She remains on a Lasix drip at 5 mg an hour. Creatinine 3.41. Hemoglobin 7.4. Blood pressure is stable. Telemetry reveals sinus mechanism. 02/10/2024 Patient examined this morning at the bedside. Patient continues to report shor tness of breath. She continues to have a cough. She denies any chest discomfort at the time of examination. She remains on a Lasix drip at 5 mg an hour. Creatinine today is 3.44. Hemoglobin 7.2. 02/11/2024 Patient examined this morning at the bedside. Patient reports that she slept well overnight. She currently denies any chest pain or pressure. She reports improvement in her shortness of breath and also with her cough. Renal function worsened today at 3.71. She remains on IV Lasix at 10 mg an hour. 02/11 Patient seen and examined. Patient still minutes to significant shortness breath mainly with exertion. She occasionally has some chest tightness however not clearly associated with exertion and more feels like she cannot take a deep breath in. Creatinine stable at 3.8. She is receiving 1 unit of packed red blood cell for hemoglobin 6.7. Remains on IV diuretics. 02/12 Patient is seen today in follow-up. She states she may feel a little bit better after blood transfusion but continues to feel tired, shortness of breath have some chest pain with exertion. Blood pressure 125/80, heart rate between 72 and 91, pulse ox 95% on room air. Repeat blood work reveals hemoglobin 7.4. BUN 83 creatinine 2.6. Discussed option of stress test in the next 1 to 2 days and patient is agreeable for this. 02/13 Patient complains of feeling tired, upset stomach. She has shortness of breath with minimal activity. She had an episode of chest pain last night but none now. Renal function is worsening with BUN of 87 creatinine 3.55. Sodium 135, potassium 4.6. 02/14 Lexiscan Cardiolite stress test came back abnormal with large area of fixed defect involving all segments of the myocardium suggestive of remote ischemia. Cannot exclude a tiny area of stress induced reversibility within the apex. Reduced wall motion activity with EF of only 21%. Results reviewed with patient and next option with cardiac catheterization discussed with the patient with understanding that patient does have abnormal renal function and would need to be cleared by nephrology. Dr. Berman will contact Dr. Lane regarding p ossible cardiac catheterization. Blood pressure 143/84, heart rate 93, pulse ox 95% on 2 L nasal cannula. Patient remains on IV Lasix drip at 10 mg/h. She has a negative fluid balance. She is on a fluid restriction of 1200 mL 02/15 Patient underwent cardiac catheterization today with Dr. Lane which revealed calcified coronary arteries. Severe triple-vessel disease. Right dominance. Mildly elevated LVEDP. She has been seen by CTS with tentative plan for CABG on Monday pending results of AFRICA. Patient will be scheduled tomorrow for AFRICA with Dr. Berman. Blood pressure 113/59, heart rate 96, pulse ox 93% on 2 L nasal cannula. Repeat blood work reveals BUN 85 creatinine 3.58. 02/17 Yesterday, patient underwent AFRICA which revealed aortic valve tricuspid and functioning normally. Mitral valve structurally normal with mild central secondary mitral regurgitation. Pulmonary vein flow has systolic dominance. Tricuspid valve appears to be normal with mild tricuspid regurgitation. Intra- atrial septum is intact with no evidence of PFO. Left atrial appendage free of clot. LV EF 35% with global hypokinesis. Patient is followed by cardiothoracic surgery and also nephrology. If patient is requiring dialysis, plan would be for patient to start dialysis prior to open heart surgery. Patient remains on Lasix drip per nephrology. Patient has a negative fluid balance of 1322. Repe at blood work reveals hemoglobin is 7.9. BUN 82 creatinine 3.39. Mild elevation in liver function test. PHYSICAL EXAM: VITAL SIGNS: Reviewed. GENERAL: Well-developed in no acute distress. HEENT: Head is normocephalic. Pupils are equal, round. Sclerae anicteric. Mucous membranes of the mouth are moist. Neck supple. No JVD or thyromegaly LUNGS: Respirations even and unlabored. Lungs essentially clear to auscultation bilaterally. HEART: Regular rate and rhythm. S1 and S2 heard. ABDOMEN: Soft. Nondistended. Nontender. EXTREMITIES: Normal range of motion. No clubbing or cyanosis. Peripheral pulses intact. 1+ bilateral lower extremity edema NEUROLOGIC: Awake and alert. Oriented x 3. ASSESSMENT: Febrile illness Shortness of breath Non-STEMI Triple-vessel coronary artery disease Acute heart failure with reduced EF, 20 to 25% New onset cardiomyopathy, ischemic Left bundle branch block Acute kidney injury, renal function was fairly normal in 2021 Anemia, acute anemia versus anemia of chronic disease due to renal failure, duration of anemia/EDWINA unknown Moderate to severe mitral regurgitation on TTE, mild mitral regurgitation on AFRIAC History of hypertension History of CVA x 2 Diabetes Hypothyroidism Former nicotine dependence Minimally elevated LFTs PLAN: Continue current cardiac medications Nephrology following. Continue IV Lasix infusion per nephrology. Daily weights, accurate intake and output, and monitoring of kidney function CT surgery following. Plan for CABG when patient is medically optimized for surgical intervention. Timing TBD. Further recommendations pending patient course Nurse practitioner note has been reviewed by physician. Signing provider agrees with the documented findings, assessment, and plan of care documented by HEAD OPERATOR SULFIDE as a scribe. Objective - Vital Signs Vital signs: Vital Signs Temp 97.9 F 02/19/24 08:00 Pulse 80 02/19/24 09:41 Resp 16 02/19/24 08:00 BP 115/70 02/19/24 08:00 Pulse Ox 95 02/19/24 08:00 FiO2 Intake & Output 02/18/24 02/19/24 02/19/24 18:59 06:59 18:59 Intake Total 440 317.333 580 Output Total 700 1150 Balance -260 -832.667 580 Intake: Intake, IV Titration 200 77.333 100 Amount Furosemide 100 mg In 100 77.333 100 Sodium Chloride 0.9% 90 ml @ 10 MG/HR 10 mls/hr IV .Q10H [facility] Rx#: [id number] Sodium Chloride 0.9% 1, 100 000 ml @ 0 mls/hr IV .[facility] Rx#:[id number] Oral 240 240 480 Output: Urine 700 1150 Other: Voiding Method Indwelling Catheter Indwelling Catheter Indwelling Catheter # Bowel Movements 1 - Labs CBC & Chem 7: 02/19/24 07:58 02/19/24 07:58 Labs: Abnormal Lab Results - Last 24 Hours (Table) 02/18/24 02/18/24 02/19/24 Range/Units 16:28 20:16 06:19 RBC (3.80-5.40) m/uL Hgb (11.4-16.0) gm/dL Hct (34.0-46.0) % BUN (7-17) mg/dL Creatinine (0.52-1.04) mg/dL POC Glucose (mg/dL) 349 H 160 H 204 H (70-110) mg/dL Calcium (8.4-10.2) mg/dL 02/19/24 02/19/24 02/19/24 Range/Units 07:58 07:58 10:34 RBC 2.78 L (3.80-5.40) m/uL Hgb 8.3 L (11.4-16.0) gm/dL Hct 26.6 L (34.0-46.0) % BUN 82 H (7-17) mg/dL Creatinine 3.34 H (0.52-1.04) mg/dL POC Glucose (mg/dL) 57 L (70-110) mg/dL Calcium 8.2 L (8.4-10.2) mg/dL 02/19/24 02/19/24 02/19/24 Range/Units 10:53 11:10 12:53 RBC (3.80-5.40) m/uL Hgb (11.4-16.0) gm/dL Hct (34.0-46.0) % BUN (7-17) mg/dL Creatinine (0.52-1.04) mg/dL POC Glucose (mg/dL) 69 L 67 L 126 H (70-110) mg/dL Calcium (8.4-10.2) mg/dL Microbiology - Last 24 Hours (Table) 02/16/24 18:31 Nasal Screen MRSA/MSSA - Final Nasal Swab Staphylococcus aureus,Not MRSA
[2024-02-19] MEDS ORDERED: IPRATROPIUM-ALBUTEROL 3 ML NEB INHALATION PRN (13:37)
--- NOTE | 2024-02-19 13:38 | P.PN ---
Subjective Progress Note Date: 02/19/24 Principal diagnosis: Coronary artery disease, CHF. The patient is seen today February 12, 2024 in follow-up on the selective care unit. She is currently sitting up in bed. Awake and alert in no acute distress. She is maintaining O2 saturation in the 90s on 3 L nasal cannula. She is afebrile. Hemodynamically stable. Today's chest x-ray reviewed reveals diffuse bilateral infiltrates with small effusion or early congestive heart failure. Hemoglobin 6.7. 1 unit of packed blood cells have been ordered. Platelets 362. White count 6.1. Sodium 131. Potassium 4.2. Bicarb 21. BUN 80. Creatinine 3.89. Glucose 286. She remains on. Antibiotics in the form of ceftriaxone. Remains on a Lasix drip at 5 mg an hour. Currently in a -178 mL balance. The patient is seen today February 13, 2024 in follow-up on the selective care unit. She is awake and alert in no acute distress. Sitting up in bed. Blood and urine cultures revealed no growth. White count 6.2. Hemoglobin 7.4. Platelets 01/05/1978. Sodium 133. Potassium 3.9. Bicarb 21. BUN 83. Creatinine 3.60. Glucose 154. She remains on a Lasix drip currently at 5 mg/h. She remains on a heparin drip. Receiving sodium bicarb tablets. Continued on bronchodilators. Continued on antibiotics in the form of ceftriaxone. She is currently in a negative balance. Voided 1 L today. The patient is seen today February 14, 2024 in follow-up on the selective care unit. She is currently sitting up in bed. Awake and alert in no acute distress. She is maintaining good O2 saturations in the 90s on 3 L/min per nasal cannula. She is afebrile. Hemodynamically stable. Follow-up chest x-ray continues to show diffuse bilateral infiltrate with small effusions. She is status post 1 unit of packed red blood cells this admission. Last hemoglobin 7.7. Sodium 135. Potassium 4.6. Bicarb 20. BUN 87. Creatinine 3.55. Glucose 358. She is continued on bronchodilators. Antibiotics in form of ceftriaxone. She remains on a Lasix drip at 10 mg/h. Receiving sodium bicarb tablets. Currently -688 mL balance. Nephrology is following. The patient is seen today February 15, 2024 in follow-up on the selective care unit. She is currently sitting up in bed awake and alert in no acute distress. She is maintaining O2 saturations in the mid 90s on 2 L/min per nasal cannula. She is afebrile. Hemodynamically stable. White count 6.8. Hemoglobin 8.6. Platelets 438. Sodium 135. Potassium 4.0. Bicarb 21. BUN 84. Creatinine 3.41. Glucose 171. She remains on a Lasix drip at 10 mg/h. Continued on a heparin drip. Plan to -1 L balance. Stress testing today reveals a large area of fixed defect involving all segments of the myocardium suggestive of remote ischemia. Could not exclude a tiny area of stress-induced reversibility within the apex. Reduced wall motion activity with ejection fraction of only 21%. Patient was seen and examined today on 02/16/2024 patient is feeling better today, continues to diurese with a Lasix drip, remains in negative fluid balance, patient underwent cardiac catheterization today and she was found to have severe triple-vessel coronary artery disease, now she is being evaluated by surgery, patient does have severe LV dysfunction, she is definitely high surgical risk, but no absolute contraindication to surgery.Basic metabolic profile is normal BUN is 85 creatinine 3.58 however the patient may require hemodialysis, and she will need nephrology clearance she will also need a bedside spirometry/FEV1 for preoperative pulmonary clearance in the meantime we will continue diuretics/Lasix drip Patient was reevaluated today on 02/17/2024, remains on Lasix drip, remains in ne gative fluid balance, patient is very well aware that she had abnormal cardiac catheterization and now she is being evaluated for possible myocardial revascularization. Patient remains on oxygen at 2 L/min and her O2 sats is 97%, her PFT showed severe obstructive lung disease, however not severe enough to not consider myocardial revascularization if the patient is cleared by other consultants including nephrology and cardiology. Patient has been a smoker over the years, she had at least a [id number] smoking history. Remind you patient had a PFT with chest x-ray still showing evidence of pulmonary edema which will definitely compromise her PFT will likely reflect more restriction than ob structive lung disease. WBC count today is 4.9 hemoglobin 7.7 electrolytes are normal BUN is 85 creatinine 3.59 Patient was reevaluated today on 02/18/2024, remains on Lasix drip, 10 mg/h, remains in constant negative fluid balance, chest x-ray today is definitely showing improvement but nonetheless her pulmonary edema is not completely resolved. Patient was being considered for CABG however the plan is presently on hold because of her overall pulmonary status and possibly the patient could benefit from more optimization of her congestive heart failure. In the meantime she seems to be doing better with the Lasix drip. Patient is also maintained on bronchodilators for her underlying COPD. Progress note dated February 19, 2024. The patient is seen today in room 385. She was scheduled to have bypass grafting today, but the surgery was canceled. She is currently on 3 L of oxygen by nasal cannula. She continues on a Lasix drip at 10 mg an hour. I did have the opportunity to review her lung function. Her FEV1 is 0.77 L or 27% of predicted. Based on that number alone, without having to evaluate the MVV, or the RV/TLC ratio, the patient is at high increased operative risk. Current laboratory data includes a white count 5.1, hemoglobin 8.3, hematocrit 26.6, and a platelet count of 403,000. Sodium 137, potassium 3.5, chlorides 101, CO2 28, BUN 82, and creatinine 3.34. Calcium is 8.2. Nasal screen was positive for non-MRSA staph. Chest x-ray is consistent with mild CHF. Objective - Vital Signs Vital signs: Vital Signs Temp 97.9 F 02/19/24 08:00 Pulse 80 02/19/24 09:41 Resp 16 02/19/24 08:00 BP 115/70 02/19/24 08:00 Pulse Ox 95 02/19/24 08:00 FiO2 Intake & Output 02/18/24 02/19/24 02/19/24 18:59 06:59 18:59 Intake Total 440 317.333 580 Output Total 700 1150 Balance -260 -832.667 580 Intake: Intake, IV Titration 200 77.333 100 Amount Furosemide 100 mg In 100 77.333 100 Sodium Chloride 0.9% 90 ml @ 10 MG/HR 10 mls/hr IV .Q10H [facility] Rx#: [id number] Sodium Chloride 0.9% 1, 100 000 ml @ 0 mls/hr IV .[facility] Rx#:[id number] Oral 240 240 480 Output: Urine 700 1150 Other: Voiding Method Indwelling Catheter Indwelling Catheter Indwelling Catheter # Bowel Movements 1 - Exam No acute distress, oriented 3. The patient is currently on 3 L of oxygen. HEENT examination is grossly unremarkable. Mucous membranes are moist. No oral lesions. Neck supple. Full range of motion. No adenopathy thyromegaly or neck vein distention. Cardiovascular examination reveals regular rhythm rate. S1-S2 normal. No S3 or S4. No discernible murmur noted. Heart rate 80 bpm. Lungs reveal scattered rhonchi and crackles. Breath sounds are otherwise equal. No wheezes. 3 L saturation is 95%. Abdomen soft bowel sounds are heard. No masses or tenderness. Extremities are intact. No cyanosis clubbing or edema. Skin is without rash or lesion. Neurologic examination is brief but nonfocal. - Labs CBC & Chem 7: 02/19/24 07:58 02/19/24 07:58 Labs: Abnormal Lab Results - Last 24 Hours (Table) 02/18/24 02/18/24 02/19/24 Range/Units 16:28 20:16 06:19 RBC (3.80-5.40) m/uL Hgb (11.4-16.0) gm/dL Hct (34.0-46.0) % BUN (7-17) mg/dL Creatinine (0.52-1.04) mg/dL POC Glucose (mg/dL) 349 H 160 H 204 H (70-110) mg/dL Calcium (8.4-10.2) mg/dL 02/19/24 02/19/24 02/19/24 Range/Units 07:58 07:58 10:34 RBC 2.78 L (3.80-5.40) m/uL Hgb 8.3 L (11.4-16.0) gm/dL Hct 26.6 L (34.0-46.0) % BUN 82 H (7-17) mg/dL Creatinine 3.34 H (0.52-1.04) mg/dL POC Glucose (mg/dL) 57 L (70-110) mg/dL Calcium 8.2 L (8.4-10.2) mg/dL 02/19/24 02/19/24 02/19/24 Range/Units 10:53 11:10 12:53 RBC (3.80-5.40) m/uL Hgb (11.4-16.0) gm/dL Hct (34.0-46.0) % BUN (7-17) mg/dL Creatinine (0.52-1.04) mg/dL POC Glucose (mg/dL) 69 L 67 L 126 H (70-110) mg/dL Calcium (8.4-10.2) mg/dL Microbiology - Last 24 Hours (Table) 02/16/24 18:31 Nasal Screen MRSA/MSSA - Final Nasal Swab Staphylococcus aureus,Not MRSA Assessment and Plan Assessment: Severe triple-vessel coronary artery disease, with anticipated CABG pending. Acute non-ST segment elevation myocardial infarction. Acute hypoxemic respiratory failure secondary to CHF exacerbation. Possible community-acquired bibasilar pneumonia. Ischemic cardiomyopathy with an ejection fraction of 20 to 25%. History of severe mitral valve regurgitation. Normocytic, normochromic anemia. Acute kidney injury. Non-anion gap metabolic acidosis. COPD, severe, with an FEV1 that is 0.77 L or 27% of predicted. Diabetes mellitus. Hypertension. Hyperlipidemia. History of CVA. History of hypothyroidism. History of fibromyalgia. History of GERD. Previous history of tobacco use. Plan: Plan dated February 19, 2024. The patient continues on oxygen, at 3 L. She continues on Lasix drip at 10 mg an hour. The patient was boarded to have surgery today, but the surgery was canceled. The patient's lung function is very poor, with an FEV1 that is 0.77 L or 27% of predicted. Based on that number alone, the patient is at high incre ased operative risk. The patient continues on bronchodilators, as well as her other medications. Additional recommendations and suggestions are forthcoming. Labs, x-rays, medications are reviewed. We will continue to follow make recommendations. The bronchodilators that she is currently will be improved. Time with Patient: Less than 30
[2024-02-19] MEDS: IPRATROPIUM-ALBUTEROL 3 ML NEB INHALATION SCH (16:31)
[2024-02-19 16:49] LABS: Glucose,Whole Blood 83 mg/dL (70-110)
[2024-02-19 20:12] LABS: Glucose,Whole Blood 59 mg/dL (70-110)
[2024-02-19 20:13] LABS: Glucose,Whole Blood 73 mg/dL (70-110)
[2024-02-19] MEDS: FORMOTEROL FUMARATE 20 MCG/2 ML NEBU INHALATION SCH (21:10)
[2024-02-19] MEDS: BUDESONIDE 1 MG/2 ML NEBU INHALATION SCH (21:11)
[2024-02-19] MEDS: ALPRAZolam 0.25 MG TAB PO PRN (21:19)
[2024-02-20 00:56] LABS: Glucose,Whole Blood 230 mg/dL (70-110)
[2024-02-20 06:20] LABS: Glucose,Whole Blood 395 mg/dL (70-110)
--- NOTE | 2024-02-20 12:01 | P.PN ---
Subjective patient is seen for follow-up for acute kidney injury. Currently being diuresed. Patient is maintained on Lasix drip. serum creatinine stable at around 3.5-3.4 mg/dL. urine output at 2.0 L for 24 hours. no complaints of shortness of breath. Officer is present at bedside. Objective - Vital Signs Vital signs: Vital Signs Temp 98.1 F 02/20/24 09:11 Pulse 76 02/20/24 10:43 Resp 16 02/20/24 10:43 BP 114/67 02/20/24 09:11 Pulse Ox 91 L 02/20/24 09:11 FiO2 Intake & Output 02/19/24 02/20/24 02/20/24 18:59 06:59 18:59 Intake Total 802 168.833 360 Output Total 1100 950 300 Balance -298 -781.167 60 Weight 75 kg Intake: Intake, IV Titration 100 168.833 Amount Furosemide 100 mg In 100 168.833 Sodium Chloride 0.9% 90 ml @ 10 MG/HR 10 mls/hr IV .Q10H [facility] Rx#: [id number] Oral 702 360 Output: Urine 1100 950 300 Other: Voiding Method Indwelling Catheter Indwelling Catheter Indwelling Catheter # Bowel Movements 1 1 - Exam patient is awake, comfortable, no acute distress Alert oriented 3 Examination of the heart S1 and S2 Examination of the lungs bilateral breath sounds are heard Abdomen is soft nontender Examination of lower extremities shows 1+ edema. [employer] WORKER exam grossly intact - Labs CBC & Chem 7: 02/19/24 07:58 02/19/24 07:58 Labs: Abnormal Lab Results - Last 24 Hours (Table) 02/19/24 02/19/24 02/19/24 Range/Units 07:58 12:53 19:47 BUN 82 H (7-17) mg/dL Creatinine 3.34 H (0.52-1.04) mg/dL POC Glucose (mg/dL) 126 H 59 L (70-110) mg/dL Calcium 8.2 L (8.4-10.2) mg/dL 02/20/24 02/20/24 Range/Units 00:54 06:17 BUN (7-17) mg/dL Creatinine (0.52-1.04) mg/dL POC Glucose (mg/dL) 230 H 395 H (70-110) mg/dL Calcium (8.4-10.2) mg/dL Assessment and Plan Assessment: 1. Acute kidney injury secondary to ATN secondary to cardiorenal syndrome. Creatinine fairly stable at 3.4 . Creatinine as low as 0.98 dated March 01, 2022. No hydronephrosis noted on kidney ultrasound. Serologies negative. good urine output. Maintained on Lasix drip. 2. Acute on chronic systolic CHF with ejection fraction of 20 to 25% with moderate to severe mitral regurgitation and mild pulmonary hypertension. 3. Volume overload. Improving with diuresis. 4. Anemia. Iron deficiency noted. Status post IV iron. On Aranesp. GI following. Status post blood transfusion this admission. Also received IV DDAVP. 5. Metabolic acidosis secondary to acute kidney injury. On oral bicarb. Stable. 6. Hypervolemic hyponatremia. Also component of hypertonicity from hyperglycemia. Better. 7. Urinary retention status post Saldaña catheter placement. On Flomax. Plan: check labs today Continue with Lasix dripfor another 24 hours Repeat labs in a.m.
[2024-02-20 12:15] LABS: Glucose,Whole Blood 287 mg/dL (70-110)
[2024-02-20 12:24] LABS: HGB 7.8 gm/dL (11.4-16.0); Hypochromasia Moderate; MCH 30.2 pg (25.0-35.0); MCHC 31.2 g/dL (31.0-37.0); MCV 96.9 fL (80.0-100.0); Mean Platelet Volume 8.2; Platelet Count 309 k/uL (150-450); Poikilocytosis Slight; RBC 2.58 m/uL (3.80-5.40); RDW 14.6 % (11.5-15.5); WBC 4.8 k/uL (3.8-10.6)
[2024-02-20 12:52] LABS: African American GFR (CKD) 17 (>60 ml/min/1.73 sqM); Anion Gap 6 mmol/L; Blood Urea Nitrogen 84 mg/dL (7-17); Calcium 7.7 mg/dL (8.4-10.2); Carbon Dioxide 28 mmol/L (22-30); Chloride 98 mmol/L (98-107); Glucose 240 mg/dL (74-99); Magnesium 1.9 mg/dL (1.6-2.3); Non-African American GFR(CKD) 15 (>60 ml/min/1.73 sqM); Potassium 3.7 mmol/L (3.5-5.1); Sodium 132 mmol/L (137-145)
--- NOTE | 2024-02-20 13:57 | P.PN ---
Subjective Progress Note Date: 02/20/24 Patient is a 58-year-old white female with past medical history significant for COPD, chronic ongoing tobacco dependence, CVA/TIA, diabetes mellitus, hyperlipidemia, hypertension, hypothyroidism, fibromyalgia, GERD, among other things. Patient presented back on 02/06/2024 from [facility] with chief complaint of increased lower extremity swelling. She states that she first noted the swelling back in December,. It is progressively worsened, she states she has gained approximately 20 pounds over the last 2 months. Approximately 10 days ago she was awoken at night with substernal chest pain. Nonradiating. With associated shortness of breath and sweating. Lasted up to 15 minutes. She is also had a nonproductive cough. She was noted to be febrile this admission. She is empirically covered on antibiotics. On arrival to the emergency room, she was noted to have elevated troponins of 1.29, 1.76, and 2.2. EKG showed normal sinus rhythm with left bundle branch block, without any other acute isc hemic changes. No previous EKG for comparison. She was started on heparin infusion per protocol. She also was on a Nitropaste. Echocardiogram showed a severely impaired left ventricular ejection fraction of 20 to 25%, and moderate to severe mitral regurgitation. Today, she was started on a Lasix infusion at 5 mg/h. Heparin infusion was stopped as the patient is anemic. Patient denies any acute blood loss. No vaginal bleeding. No juan blood in stool. No melena. No nausea or vomiting or hematic emesis. Last colonoscopy was reportedly around 10 years ago. She is currently lying in bed, on 2 L/min nasal cannula. Chest x-ray on admission shows diffuse interstitial edema as well as bilateral consolidation and small effusions. Findings consistent with congestive heart failure. NT proBNP was elevated 25,000. Patient not making much urine despite Lasix infusion. Patient did have 1 episode of fever during her admission with a Tmax of 100.2 F. She was empirically she was empirically placed on Rocephin. Negative for influenza, RSV, COVID. Most recent BMP from today: Sodium 130, potassium 5.1, chloride 104, serum bicarb down to 17, BUN 63, creatinine worsening and 3.34, glucose 229. LFTs mildly elevated. Hepatitis panel nonreactive. Overall, hemodynamically stable. On 02/08/2024, seen the patient for a follow-up. The patient is currently on 3 L of oxygen by nasal cannula with a pulse ox of 94%. She should be able to wean down. She is on Lasix drip at 5 mg an hour and the patient is producing adequate amount of urine output. Her fluid balance is negative. As mentioned, the patient is post non-ST segment ovation myocardial infarction the patient is being seen by cardiology. The patient has severe cardiomyopathy with impaired left ventricular ejection fraction. Her blood work from today shows a BUN of 66 with a creatinine of 3.41 and this is consistent with an acute on chronic kidney injury. Sodium levels at 129, potassium is at 4.4 with a WBC count of 6.3 and a hemoglobin of 7.4. The patient is on IV Rocephin as an empiric antibiotic coverage. She is currently afebrile. The patient is being seen by cardiology. The patient will be kept on IV Lasix. Not a candidate for any invasive cardiac workup due to her acute on top of chronic kidney injury at this point in time. Her comorbidities are multiple. Unsure if she does have underlying coronary artery disease. Nevertheless, she has previous history of CVA, diabetes mellitus type 2, hypothyroidism and CHF. She was in [facility] for being arrested due to possession of amphetamines. Vasculitis workup was negative including a negative EDSON and a negative P and C ANCA. Hepatitis profile was also negative. On 02/10/2024, the patient is being seen for a follow-up. No new complaints. No significant shortness of breath at rest. Remains on Lasix drip. Producing adequate amount of urine output. Blood work from today was noticed that the patient has a white cell count of 6 with a hemoglobin of 7.2 and a PET scan at 360. BUN 69 with a creatinine of 3.4 and a sodium levels at 129. The patient is being seen by cardiology and nephrology addition. She remains on Lasix drip which will be increased up to 10 mg an hour. Not a candidate for further cardiac catheterization based on underlying renal dysfunction. 02/11/2024, the patient is being seen for a follow-up. No new complaints. Monitor for improvement in her condition. She remains on 2 L of oxygen by nasal cannula. Fluid balance is -90 cc over the past 24 hours. Suboptimal response to diuretics and the patient remains on Lasix at 10 mg an hour. BUN 71 with a creatinine of 3.7, slightly worse compared to yesterday. Sodium is at 131. The patient denies having any chest pain. No significant hypotension. Remains on aspirin. Remains on metoprolol 25 mg p.o. twice a day. Cardiology on the case. She has significant cardiomyopathy. She is post acute non-STEMI. Not a candidate for cardiac catheterization due to renal impairment. The patient is seen today February 12, 2024 in follow-up on the selective care unit. She is currently sitting up in bed. Awake and alert in no acute distress. She is maintaining O2 saturation in the 90s on 3 L nasal cannula. She is afebrile. Hemodynamically stable. Today's chest x-ray reviewed reveals diffuse bilateral infiltrates with small effusion or early congestive heart failure. Hemoglobin 6.7. 1 unit of packed blood cells have been ordered. Platelets 362. White cou nt 6.1. Sodium 131. Potassium 4.2. Bicarb 21. BUN 80. Creatinine 3.89. Glucose 286. She remains on. Antibiotics in the form of ceftriaxone. Remains on a Lasix drip at 5 mg an hour. Currently in a -178 mL balance. The patient is seen today February 13, 2024 in follow-up on the selective care unit. She is awake and alert in no acute distress. Sitting up in bed. Blood and urine cultures revealed no growth. White count 6.2. Hemoglobin 7.4. Platelets 01/05/1978. Sodium 133. Potassium 3.9. Bicarb 21. BUN 83. Creatinine 3.60. Glucose 154. She remains on a Lasix drip currently at 5 mg/h. She remains on a heparin drip. Receiving sodium bicarb tablets. Continued on bronchodilators. Continued on antibiotics in the form of ceftriaxone. She is currently in a negative balance. Voided 1 L today. The patient is seen today February 14, 2024 in follow-up on the selective care unit. She is currently sitting up in bed. Awake and alert in no acute distress. She is maintaining good O2 saturations in the 90s on 3 L/min per nasal cannula. She is afebrile. Hemodynamically stable. Follow-up chest x-ray continues to show diffuse bilateral infiltrate with small effusions. She is status post 1 unit of packed red blood cells this admission. Last hemoglobin 7.7. Sodium 135. Potassium 4.6. Bicarb 20. BUN 87. Creatinine 3.55. Glucose 358. She is continued on bronchodilators. Antibiotics in form of ceftriaxone. She remains on a Lasix drip at 10 mg/h. Receiving sodium bicarb tablets. Currently -688 mL balance. Nephrology is following. The patient is seen today February 15, 2024 in follow-up on the selective care unit. She is currently sitting up in bed awake and alert in no acute distress. She is maintaining O2 saturations in the mid 90s on 2 L/min per nasal cannula. She is afebrile. Hemodynamically stable. White count 6.8. Hemoglobin 8.6. Platelets 438. Sodium 135. Potassium 4.0. Bicarb 21. BUN 84. Creatinine 3.41. Glucose 171. She remains on a Lasix drip at 10 mg/h. Continued on a heparin drip. Plan to -1 L balance. Stress testing today reveals a large area of fixed defect involving all segments of the myocardium suggestive of remote ischemia. Could not exclude a tiny area of stress-induced reversibility within the apex. Reduced wall motion activity with ejection fraction of only 21%. The patient is seen today February 20, 2024 in follow-up on the selective care unit. She is currently sitting up in bed. Awake and alert in no acute distress. She is maintaining O2 saturations in the 90s on 3 L/min per nasal cannula. She remains on a Lasix drip at 10 mg/h. Currently net -1 L balance. White count 4.8. Hemoglobin 7.8. Platelets 309. Sodium 132. Potassium 3.7. Bicarb 28. BUN 84. Creatinine 3.31. Glucose 240. She remains on bronchodilators. Heparin for DVT prophylaxis. She has been worked up for possible coronary artery bypass surgery once she recovers from her acute illness. Objective - Vital Signs Vital signs: Vital Signs Temp 98.1 F 02/20/24 09:11 Pulse 84 02/20/24 13:07 Resp 16 02/20/24 10:43 BP 114/67 02/20/24 09:11 Pulse Ox 91 L 02/20/24 09:11 FiO2 Intake & Output 02/19/24 02/20/24 02/20/24 18:59 06:59 18:59 Intake Total 802 168.833 360 Output Total 1100 950 300 Balance -298 -781.167 60 Weight 75 kg Intake: Intake, IV Titration 100 168.833 Amount Furosemide 100 mg In 100 168.833 Sodium Chloride 0.9% 90 ml @ 10 MG/HR 10 mls/hr IV .Q10H [facility] Rx#: [id number] Oral 702 360 Output: Urine 1100 950 300 Other: Voiding Method Indwelling Catheter Indwelling Catheter Indwelling Catheter # Bowel Movements 1 1 - Exam GENERAL EXAM: Alert, pleasant 58-year-old female, sitting up in bed, on 3 L nasal cannula, in no apparent distress. HEAD: Normocephalic and atraumatic EYES: Normal reaction of pupils, equal size. NOSE: Clear with pink turbinates. THROAT: No erythema or exudates. NECK: No masses, no JVD. CHEST: No chest wall deformity. LUNGS: Equal air entry with bibasilar crackles and mild and expiratory wheezes heard bilaterally. CVS: S1 and S2 normal with no audible murmur, regular rhythm. No extra heart sounds ABDOMEN: No hepatosplenomegaly, active bowel sounds, no guarding or rigidity. SPINE: No scoliosis or deformity SKIN: No rashes CENTRAL NERVOUS SYSTEM: No focal deficits, tone is normal in all 4 extremities. EXTREMITIES: There is lower extremity pitting edema, 1-2+ bilaterally. No clubbing, or cyanosis. Peripheral pulses are intact. - Labs CBC & Chem 7: 02/20/24 11:53 02/20/24 11:53 Labs: Abnormal Lab Results - Last 24 Hours (Table) 02/19/24 02/20/24 02/20/24 Range/Units 19:47 00:54 06:17 RBC (3.80-5.40) m/uL Hgb (11.4-16.0) gm/dL Hct (34.0-46.0) % Sodium (137-145) mmol/L BUN (7-17) mg/dL Creatinine (0.52-1.04) mg/dL Glucose (74-99) mg/dL POC Glucose (mg/dL) 59 L 230 H 395 H (70-110) mg/dL Calcium (8.4-10.2) mg/dL 02/20/24 02/20/24 02/20/24 Range/Units 11:53 11:53 12:06 RBC 2.58 L (3.80-5.40) m/uL Hgb 7.8 L (11.4-16.0) gm/dL Hct 25.0 L (34.0-46.0) % Sodium 132 L (137-145) mmol/L BUN 84 H (7-17) mg/dL Creatinine 3.31 H (0.52-1.04) mg/dL Glucose 240 H (74-99) mg/dL POC Glucose (mg/dL) 287 H (70-110) mg/dL Calcium 7.7 L (8.4-10.2) mg/dL Assessment and Plan Assessment: Acute non-ST elevation MO. Stress testing today 02/15/2024 reveals a large area of fixed defect involving all segments of the myocardium suggestive of remote ischemia. Cannot exclude a tiny area of stress-induced reversibility within the apex. Reduced wall motion activity with ejection fraction of only 21%. Cardiac catheterization from 02/16/2024 revealed calcified coronary arteries. Severe triple-vessel disease. Being evaluated for possible revascularization surgery Acute hypoxemic respiratory failure, currently on 3 L/min nasal cannula, secondary to exacerbation of systolic congestive heart failure and above, Chest x-ray on admission shows diffuse interstitial edema as well as bilateral consolidation and small effusions. Findings consistent with congestive heart failure, however, superimposed community-acquired bibasilar pneumonia is not excluded. Ischemic cardiomyopathy with an estimated left ventricular ejection fraction severely impaired at 20 to 25% as well as moderate to severe mitral valve r egurgitation, currently on Lasix infusion at 10 mg/h, diuresing well. Negative fluid balance. Severe mitral valve regurgitation Acute febrile illness, recovered Normocytic normochromic anemia, current hemoglobin 7.8, received 1 unit of packed red blood cell Acute kidney injury, likely cardiorenal, current creatinine 3.31 Metabolic non-anion gap acidosis, secondary to above Chronic obstructive pulmonary disease, stable Diabetes mellitus type 1 History of hyperlipidemia History of hypertension History of CVA/TIA History of hypothyroidism History of fibromyalgia History of GERD Mildly elevated LFTs, hepatitis panel nonreactive Former tobacco smoker, 1/2 pack/day or approximately 15-year pack history Plan: The patient was seen and evaluated Labs and medications reviewed Remains stable on 3 L nasal Continued on a Lasix drip May require hemodialysis Being worked up for possible bypass surgery We will continue to follow I have personally seen and examined the patient, performed the documentation and the assessment and plan as written. Number of minutes spent on the visit: 10.
--- NOTE | 2024-02-20 14:32 | P.PN ---
Subjective HISTORY OF PRESENT ILLNESS: This is a 58-year-old female with a past medical history significant for former nicotine dependence, hypertension, CVA, hypothyroidism, and diabetes. Patient follows in the office with Dr. Saunders and was last seen in May 2023. We have been asked to see the patient in consultation for non-STEMI and CHF. Patient e xamined at the bedside in the emergency room. Patient is currently incarcerated and there is a operational trainer at the bedside. Patient states she has been feeling short of breath and feeling weak. She states this started about 2 days ago. She states that she was in court and afterwards they had to use a wheelchair to get her back into the vehicle as she was too weak to walk. She also reports feeling dizzy and having pounding in her chest. She reports a slight cough. She denied having a fever previously to her knowledge. However patient was febrile this morning with a temperature of 100.2. She also reports lower extremity edema that started in the middle of December. She reports nausea yesterd ay that was relieved with Zofran. Patient was found to be anemic on admission with a hemoglobin of 7.7. Repeat 7.1. Last hemoglobin was back in 2021 but was normal at 12.3. The patient denies a history of anemia. Unsure if this anemia is new or has been present for a while as her last blood work was not since 2021. She denies any blood in her stool or urine. She does report decreased urine output. Patient was also found to have acute kidney injury with a creatinine of 2.96. Back in 2021, patient's kidney function was within normal limits. Patient was also found to have elevated troponins and was started on IV heparin. She denied having any chest pain or pressure. Patient is a former cigarette smoker and has not smoked in 55 days since being in [facility]. She denies alcohol abuse many years ago but nothing recently. She denies drug use including marijuana. DIAGNOSTICS: - EKG reveals sinus mechanism with left bundle branch block. - Chest xray consolation of findings favor CHF over pneumonia. Correlate clinically. Underlying COPD. Loop recorder device seen. Bilateral conso lidation and small effusion with diffuse interstitial pattern.. - Laboratory data: WBC 6.2. Hemoglobin 7.1. Platelet count 300. Sodium 133. Potassium 4.9. BUN 56. Creatinine 2.96. AST 55. ALT 35. proBNP 25,100. Troponin 1.290. 1.760. 2.210. - Current home cardiac medications include Lipitor 20 mg at night. - Most recent echocardiogram obtained in February 2022 revealed ejection fraction 55 to 60%, mild MR, mild TR - Patient underwent dobutamine stress test in March 2023 at the office which was negative for ischemia 02/08/2024 Patient examined this morning at the bedside. Patient states her shortness of breath has improved today. She complains of mild chest discomfort when she feels short of breath. She states the chest pain is worse with deep inspiration. Her lower extremity edema has improved from yesterday. She has been transition to IV Lasix drip per nephrology. Echocardiogram completed revealing ejection fraction 20 to 25%, mild pulm hypertension, moderate to severe mitral regurgitation, mild aortic regurgitation, trace to mild tricuspid regurgitation and small pericardial effusion. 02/09/2024 Patient examined this morning at the bedside. Patient continues to report shortness of breath at the time of examination. She reports that she developed a cough also today. She reports chest discomfort that is worse with deep inspiration. She remains on a Lasix drip at 5 mg an hour. Creatinine 3.41. Hemoglobin 7.4. Blood pressure is stable. Telemetry reveals sinus mechanism. 02/10/2024 Patient examined this morning at the bedside. Patient continues to report shor tness of breath. She continues to have a cough. She denies any chest discomfort at the time of examination. She remains on a Lasix drip at 5 mg an hour. Creatinine today is 3.44. Hemoglobin 7.2. 02/11/2024 Patient examined this morning at the bedside. Patient reports that she slept well overnight. She currently denies any chest pain or pressure. She reports improvement in her shortness of breath and also with her cough. Renal function worsened today at 3.71. She remains on IV Lasix at 10 mg an hour. 02/11 Patient seen and examined. Patient still minutes to significant shortness breath mainly with exertion. She occasionally has some chest tightness however not clearly associated with exertion and more feels like she cannot take a deep breath in. Creatinine stable at 3.8. She is receiving 1 unit of packed red blood cell for hemoglobin 6.7. Remains on IV diuretics. 02/12 Patient is seen today in follow-up. She states she may feel a little bit better after blood transfusion but continues to feel tired, shortness of breath have some chest pain with exertion. Blood pressure 125/80, heart rate between 72 and 91, pulse ox 95% on room air. Repeat blood work reveals hemoglobin 7.4. BUN 83 creatinine 2.6. Discussed option of stress test in the next 1 to 2 days and patient is agreeable for this. 02/13 Patient complains of feeling tired, upset stomach. She has shortness of breath with minimal activity. She had an episode of chest pain last night but none now. Renal function is worsening with BUN of 87 creatinine 3.55. Sodium 135, potassium 4.6. 02/14 Lexiscan Cardiolite stress test came back abnormal with large area of fixed defect involving all segments of the myocardium suggestive of remote ischemia. Cannot exclude a tiny area of stress induced reversibility within the apex. Reduced wall motion activity with EF of only 21%. Results reviewed with patient and next option with cardiac catheterization discussed with the patient with understanding that patient does have abnormal renal function and would need to be cleared by nephrology. Dr. Berman will contact Dr. Lane regarding p ossible cardiac catheterization. Blood pressure 143/84, heart rate 93, pulse ox 95% on 2 L nasal cannula. Patient remains on IV Lasix drip at 10 mg/h. She has a negative fluid balance. She is on a fluid restriction of 1200 mL 02/15 Patient underwent cardiac catheterization today with Dr. Lane which revealed calcified coronary arteries. Severe triple-vessel disease. Right dominance. Mildly elevated LVEDP. She has been seen by CTS with tentative plan for CABG on Monday pending results of AFRICA. Patient will be scheduled tomorrow for AFRICA with Dr. Berman. Blood pressure 113/59, heart rate 96, pulse ox 93% on 2 L nasal cannula. Repeat blood work reveals BUN 85 creatinine 3.58. 02/17 Yesterday, patient underwent AFRICA which revealed aortic valve tricuspid and functioning normally. Mitral valve structurally normal with mild central secondary mitral regurgitation. Pulmonary vein flow has systolic dominance. Tricuspid valve appears to be normal with mild tricuspid regurgitation. Intra- atrial septum is intact with no evidence of PFO. Left atrial appendage free of clot. LV EF 35% with global hypokinesis. Patient is followed by cardiothoracic surgery and also nephrology. If patient is requiring dialysis, plan would be for patient to start dialysis prior to open heart surgery. Patient remains on Lasix drip per nephrology. Patient has a negative fluid balance of 1322. Repe at blood work reveals hemoglobin is 7.9. BUN 82 creatinine 3.39. Mild elevation in liver function test. 02/20/2024 Patient examined this morning at bedside. Patient currently denies chest pain or pressure. She denies shortness of breath. She remains on IV Lasix infusion. Kidney function remained stable. PHYSICAL EXAM: VITAL SIGNS: Reviewed. GENERAL: Well-developed in no acute distress. HEENT: Head is normocephalic. Pupils are equal, round. Sclerae anicteric. Mucous membranes of the mouth are moist. Neck supple. No JVD or thyromegaly LUNGS: Respirations even and unlabored. Lungs essentially clear to auscultation bilaterally. HEART: Regular rate and rhythm. S1 and S2 heard. ABDOMEN: Soft. Nondistended. Nontender. EXTREMITIES: Normal range of motion. No clubbing or cyanosis. Peripheral pulses intact. 1+ bilateral lower extremity edema NEUROLOGIC: Awake and alert. Oriented x 3. ASSESSMENT: Febrile illness Shortness of breath Non-STEMI Triple-vessel coronary artery disease Acute heart failure with reduced EF, 20 to 25% New onset cardiomyopathy, ischemic Left bundle branch block Acute kidney injury, renal function was fairly normal in 2021 Anemia, acute anemia versus anemia of chronic disease due to renal failure, duration of anemia/EDWINA unknown Moderate to severe mitral regurgitation on TTE, mild mitral regurgitation on AFRICA History of hypertension History of CVA x 2 Diabetes Hypothyroidism Former nicotine dependence Minimally elevated LFTs PLAN: Continue current cardiac medications Nephrology following. Continue IV Lasix infusion per nephrology. Daily weights, accurate intake and output, and monitoring of kidney function CT surgery following. Plan for CABG when patient is medically optimized for surgical intervention. Timing TBD. Further recommendations pending patient course Nurse practitioner note has been reviewed by physician. Signing provider agrees with the documented findings, assessment, and plan of care documented by MEDICAL PATHOLOGY TEACHER as a scribe. Objective - Vital Signs Vital signs: Vital Signs Temp 98.1 F 02/20/24 09:11 Pulse 76 02/20/24 10:43 Resp 16 02/20/24 10:43 BP 114/67 02/20/24 09:11 Pulse Ox 91 L 02/20/24 09:11 FiO2 Intake & Output 02/19/24 02/20/24 02/20/24 18:59 06:59 18:59 Intake Total 802 168.833 360 Output Total 1100 950 300 Balance -298 -781.167 60 Weight 75 kg Intake: Intake, IV Titration 100 168.833 Amount Furosemide 100 mg In 100 168.833 Sodium Chloride 0.9% 90 ml @ 10 MG/HR 10 mls/hr IV .Q10H [facility] Rx#: [id number] Oral 702 360 Output: Urine 1100 950 300 Other: Voiding Method Indwelling Catheter Indwelling Catheter Indwelling Catheter # Bowel Movements 1 1 - Labs CBC & Chem 7: 02/20/24 11:53 02/20/24 11:53 Labs: Abnormal Lab Results - Last 24 Hours (Table) 02/19/24 02/19/24 02/19/24 Range/Units 07:58 12:53 19:47 BUN 82 H (7-17) mg/dL Creatinine 3.34 H (0.52-1.04) mg/dL POC Glucose (mg/dL) 126 H 59 L (70-110) mg/dL Calcium 8.2 L (8.4-10.2) mg/dL 02/20/24 02/20/24 Range/Units 00:54 06:17 BUN (7-17) mg/dL Creatinine (0.52-1.04) mg/dL POC Glucose (mg/dL) 230 H 395 H (70-110) mg/dL Calcium (8.4-10.2) mg/dL
[2024-02-20 16:51] LABS: Glucose,Whole Blood 246 mg/dL (70-110)
[2024-02-20 20:45] LABS: Glucose,Whole Blood 181 mg/dL (70-110)
[2024-02-20 21:50] LABS: Glucose,Whole Blood 191 mg/dL (70-110)
[2024-02-20] MEDS: guaiFENesin-DM 100-10MG/5ML 10 ML CUP PO PRN (22:04)
--- NOTE | 2024-02-20 22:33 | P.PN ---
Subjective This is a pleasant 58 years old female with past medical history of multiple medical problems as below She has been incarcerated for 52 days, there is officer at bedside. Patient presents because of shortness of breath and exertional dyspnea has for the last 2 days, she states she hears herself wheezing when she lies down. Currently she is breathing quietly. She is complaining for mild chest pain on the left side, nonradiating nonspecific, feels much better now and very mild. She has occasional cough but no phlegm. Also she is complaining from upset stomach but no diarrhea or vomiting She complains from decreased urination but no dysuria or urgency. She has mild headache feels generally weak but no dizziness or blurry vision. She used to smoke half pack per day before she got incarcerated No alcohol or illicit drugs. She follow-up with her human resources manager manufacturing Dr. Donal Herrera and methods specialist Dr. Babb who examined her about 2 months ago where she has some mild ulcer In the bottom of her right total This morning patient has low-grade fever 100.2 She is also mildly tachypneic around 22 She is saturating 93% on 2 L oxygen via nasal cannula Labs reviewed showing hemoglobin of 7.7, rest of CBC is unremarkable BMP liver enzymes not elevated. INR 0.9. Lactic 0.9 proBNP is elevated 25 100 EKG showing sinus rhythm at [address]-T changes, no left bundle branch block 02/17/2024 --Patient is seen and evaluated in room at bedside; remains on Lasix drip, remains in negative fluid balance - patient underwent cardiac catheterization which revealed severe triple-vessel coronary artery disease and now she is being evaluated for possible myocardial revascularization. Patient remains on oxygen at 2 L/min and her O2 sats is 97%, her PFT showed severe obstructive lung disease, however not severe enough to not consider myocardial revascularization if the patient is cleared by other consultants including nephrology and cardiology. Patient has been a smoker over the years, she had at least a [id number] smoking history. Remind you patient had a PFT with chest x-ray still showing evidence of pulmonary edema which will definitely compromise her PFT will likely reflect more restriction than obstructive lung disease. WBC count today is 4.9 hemoglobin 7.7 electrolytes are normal BUN is 85 creatinine 3.59 02/18/2024 Patient is seen and evaluated in room at bedside; sitting up in bed; ports stable breathing - patient underwent AFRICA which revealed aortic valve tricuspid and functioning normally. Mitral valve structurally normal with mild central secondary mitral regurgitation. Pulmonary vein flow has systolic dominance. Tricuspid valve appears to be normal with mild tricuspid regurgitation. Intra-atrial septum is intact with no evidence of PFO. Left atrial appendage free of clot. LV EF 35% with global hypokinesis. -- Patient is followed by cardiothoracic surgery and also nephrology. Nephrology not recommending any indication or need for hemodialysis. Patient remains on Lasix drip per nephrology. Patient has a negative fluid balance of 1322. Repeat blood work reveals hemoglobin is 7.9. BUN 82 creatinine 3.39. Mild elevation in liver function test. -Plan for surgery once clinically optimized 02/19/2024 Patient looks more awake than admission, sitting up in bed. Care Home officers at bedside Mentation at baseline. She talks freely. Denies chest pain or dyspnea at rest On presentation patient was found acute CHF and non-STEMI, workup showing triple-vessel coronary artery disease and patient will require bypass procedure with cardiothoracic surgery team on the case once medically optimized. Patient currently with fluid overload on Lasix drip, on admission it was 5 mg/h, currently increased to 10 mg/h. She is making around 1 L of urine output by yesterday. Saldaña catheter in place. She is also on aspirin 81 mg Hemoglobin 8.5, creatinine 3.3 compared to 2.7 on admission with baseline 0.9- 1.2. Liver enzymes mildly elevated since admission. 02/20/2024 [facility]. Workup showing severe triple-vessel coronary artery disease currently being evaluated by cardiothoracic surgery team for possible cardiac bypass procedure. However she needs optimization and she is currently kept on IV Lasix 10 mg, creatinine went up 3.3 today. Sash Repairer recommended to continue with Lasix drip still tomorrow Patient diabetic, she is on Levemir 8 units twice daily, she is developing episodes of hypoglycemia we will going to lower the dose to 6 units twice daily She is also on aspirin 325 mg Objective - Vital Signs Vital signs: Vital Signs Temp 98.1 F 02/20/24 09:11 Pulse 84 02/20/24 13:07 Resp 16 02/20/24 10:43 BP 114/67 05/14/24 09:11 Pulse Ox 91 L 02/20/24 09:11 FiO2 Intake & Output 02/19/24 02/20/24 02/20/24 18:59 06:59 18:59 Intake Total 802 168.833 360 Output Total 1100 950 300 Balance -298 -781.167 60 Weight 75 kg Intake: Intake, IV Titration 100 168.833 Amount Furosemide 100 mg In 100 168.833 Sodium Chloride 0.9% 90 ml @ 10 MG/HR 10 mls/hr IV .Q10H [facility] Rx#: [id number] Oral 702 360 Output: Urine 1100 950 300 Other: Voiding Method Indwelling Catheter Indwelling Catheter Indwelling Catheter # Bowel Movements 1 1 - Exam -GENERAL: The patient is alert and oriented x3, not in any acute distress. Well developed, well nourished. Generally weak and lethargic HEENT: Pupils are round and equally reacting to light. EOMI. No scleral icterus. No conjunctival pallor. Normocephalic, atraumatic. No pharyngeal erythema. No thyromegaly. CARDIOVASCULAR: S1 and S2 present. No murmurs, rubs, or gallops. -PULMONARY: Chest is clear to auscultation, no wheezing , no crackles. Tachypnea -ABDOMEN: Soft, nontender, nondistended, normoactive bowel sounds. No palpable organomegaly. Saldaña catheter in place MUSCULOSKELETAL: No joint swelling or deformity. -EXTREMITIES: No cyanosis, clubbing, 1+ bilateral pitting leg edema. NEUROLOGICAL: Gross neurological examination did not reveal any focal deficits. SKIN: No rashes. no petechiae. - Labs CBC & Chem 7: 02/20/24 11:53 02/20/24 11:53 Labs: Abnormal Lab Results - Last 24 Hours (Table) 02/19/24 02/20/24 02/20/24 Range/Units 19:47 00:54 06:17 RBC (3.80-5.40) m/uL Hgb (11.4-16.0) gm/dL Hct (34.0-46.0) % Sodium (137-145) mmol/L BUN (7-17) mg/dL Creatinine (0.52-1.04) mg/dL Glucose (74-99) mg/dL POC Glucose (mg/dL) 59 L 230 H 395 H (70-110) mg/dL Calcium (8.4-10.2) mg/dL 02/20/24 02/20/24 02/20/24 Range/Units 11:53 11:53 12:06 RBC 2.58 L (3.80-5.40) m/uL Hgb 7.8 L (11.4-16.0) gm/dL Hct 25.0 L (34.0-46.0) % Sodium 132 L (137-145) mmol/L BUN 84 H (7-17) mg/dL Creatinine 3.31 H (0.52-1.04) mg/dL Glucose 240 H (74-99) mg/dL POC Glucose (mg/dL) 287 H (70-110) mg/dL Calcium 7.7 L (8.4-10.2) mg/dL Assessment and Plan Assessment: Acute systolic CHF exacerbation, ejection fraction: 20 to 25% non-STEMI, ekg New left bundle branch block, secondary to triple-vessel coronary artery disease requiring CABG Mild hypoxic respiratory failure, improved Acute kidney injury on chronic kidney disease, nonoliguric Acute on chronic anemia of chronic disease Acute urinary tract infection, urine culture showing skin or genital kwesi. Resolved Diabetes mellitus with hypoglycemia Low-grade fever Nicotine dependence Chronic ulcers of the right big toe Chronic kidney disease stage II with acute kidney injury Plan: Cardiothoracic surgery team on the case with plan for bypass procedure for coronary artery disease Continue with IV Lasix, on 10 mg per hour, with monitoring renal function which is worse since admnisoin o Nephrology team consult Patient currently on aspirin Cardiology consult on the case Change Levemir dose 8 units twice daily. Labs and medication were reviewed.. Continue same treatment. Continue with symptomatic treatment. Resume home medication. Monitor labs and vitals. DVT and GI prophylaxis. Further recommendations as per clinical course of the patient DVT prophylaxis: heparin GI Prophylaxis: Pepcid Prognosis is guarded given her multiple disease of the heart kidneys
[2024-02-21 04:12] LABS: Glucose,Whole Blood 195 mg/dL (70-110)
[2024-02-21 05:59] LABS: Glucose,Whole Blood 182 mg/dL (70-110)
[2024-02-21] MEDS: INSULIN DETEMIR (LEVEMIR) 100 UNIT/ML SYR SQ SCH (06:52)
--- NOTE | 2024-02-21 07:47 | XR ---
EXAMINATION TYPE: XR chest 2V DATE OF EXAM: 02/21/2024 COMPARISON: 02/18/2024 HISTORY: 58-year-old female effusion TECHNIQUE: PA and lateral views FINDINGS: Heart normal size. Diffuse interstitial and patchy opacities. Loop recorder device projects over the left side of the heart. Patchy left basilar opacity with small left greater than right pleural effusi ons. IMPRESSION: CHF with ongoing interstitial pulmonary edema. Small left greater than right pleural effusions also p ersist (better seen on the lateral view).
--- NOTE | 2024-02-21 10:41 | P.PN ---
Subjective Progress Note Date: 02/21/24 Principal diagnosis: Triple-vessel coronary artery disease, non-STEMI this admission, acute heart failure with reduced ejection fraction, new onset ischemic cardiomyopathy, moderate to severe mitral regurgitation, acute on chronic kidney disease, acute anemia. History of hypertension, hyperlipidemia, hypothyroid, diabetes mellitus, CVA, hepatitis as a child, CKD stage IV, previous tobacco dependence with recent cessation, severe COPD, previous methamphetamine use with recent cessation, family history of coronary artery disease The patient was seen and examined this morning with Dr. Gillette sitting up in bed on the cardiac stepdown unit in no acute distress, police inspector present. Patient currently denies any chest pain or increased shortness of breath. States she feels much better than when she came in although still requiring oxygen. Remains on IV continuous Lasix. Dr. Gillette did discuss the case with Dr. Mei. Today we will check oxygen saturation on room air and complete her 5 m walk test. Re-calculated patient's STS risk with new information regarding mild mitral regurgitation and patient's mortality risk is less but she is still considered very high risk for mortality. We did repeat a chest x-ray this morning which does appear improved. We did discuss with nephrology the possibility of starting hemodialysis prior to surgery, they feel her kidney function is stable at this time and she is nonoliguric so no indication for preemptive hemodialysis, although she does remain high risk for needing hemodialysis after surgery. Objective - Vital Signs Vital signs: Vital Signs Temp 97.2 F L 02/21/24 08:00 Pulse 92 02/21/24 09:52 Resp 18 02/21/24 09:52 BP 125/72 02/21/24 08:00 Pulse Ox 95 02/21/24 09:41 FiO2 Intake & Output 02/20/24 02/21/24 02/21/24 18:59 06:59 18:59 Intake Total 1131.333 328.5 319.167 Output Total 800 500 Balance 331.333 -171.5 319.167 Weight 75.6 kg Intake: Intake, IV Titration 91.333 88.5 83.167 Amount Furosemide 100 mg In 91.333 88.5 83.167 Sodium Chloride 0.9% 90 ml @ 10 MG/HR 10 mls/hr IV .Q10H [id number] Rx#: [id number] Oral 1040 240 236 Output: Urine 800 500 Other: Voiding Method Indwelling Catheter Indwelling Catheter # Bowel Movements 1 - Exam CONSTITUTIONAL: Appears comfortable, cooperative, no acute distress RESPIRATORY: Lungs sounds diminished bilaterally. Respirations even, nonlabored. Currently on 2 L nasal cannula with oxygen saturation 94%. Strong cough. CARDIOVASCULAR: S1, S2 present. Regular rate and rhythm, sinus rhythm on telemetry. Palpable peripheral pulses bilaterally. No edema present. No calf pain or tenderness noted GASTROINTESTINAL: Abdomen soft, nontender, nondistended. Active bowel sounds present 4 quadrants. Tolerating diet. Positive bowel movement 02/19 GENITOURINARY: Saldaña present draining clear, yellow urine. Output overnight 1300 mL in the last 24 hours INTEGUMENTARY: Skin is warm and dry NEUROLOGIC: Cranial nerves II through XII intact MUSKULOSKELETAL: Able to move all extremities, strength equal bilaterally PSYCHIATRIC: Alert and oriented to person place and time, appropriate affect, intact judgment and insight - Allied health notes Allied health notes reviewed: nursing - Labs CBC & Chem 7: 02/20/24 11:53 02/20/24 11:53 Labs: Abnormal Lab Results - Last 24 Hours (Table) 02/20/24 02/20/24 02/20/24 Range/Units 11:53 11:53 12:06 RBC 2.58 L (3.80-5.40) m/uL Hgb 7.8 L (11.4-16.0) gm/dL Hct 25.0 L (34.0-46.0) % Sodium 132 L (137-145) mmol/L BUN 84 H (7-17) mg/dL Creatinine 3.31 H (0.52-1.04) mg/dL Glucose 240 H (74-99) mg/dL POC Glucose (mg/dL) 287 H (70-110) mg/dL Calcium 7.7 L (8.4-10.2) mg/dL 02/20/24 02/20/24 02/20/24 Range/Units 16:49 20:38 21:48 RBC (3.80-5.40) m/uL Hgb (11.4-16.0) gm/dL Hct (34.0-46.0) % Sodium (137-145) mmol/L BUN (7-17) mg/dL Creatinine (0.52-1.04) mg/dL Glucose (74-99) mg/dL POC Glucose (mg/dL) 246 H 181 H 191 H (70-110) mg/dL Calcium (8.4-10.2) mg/dL 02/21/24 02/21/24 Range/Units 04:10 05:56 RBC (3.80-5.40) m/uL Hgb (11.4-16.0) gm/dL Hct (34.0-46.0) % Sodium (137-145) mmol/L BUN (7-17) mg/dL Creatinine (0.52-1.04) mg/dL Glucose (74-99) mg/dL POC Glucose (mg/dL) 195 H 182 H (70-110) mg/dL Calcium (8.4-10.2) mg/dL - Imaging and Cardiology Chest x-ray: report reviewed, image reviewed Assessment and Plan Assessment: Triple-vessel coronary artery disease, non-STEMI this admission Acute heart failure with reduced ejection fraction, 20-25%, 35% on AFRICA New onset ischemic cardiomyopathy Moderate to severe mitral regurgitation on transthoracic echocardiogram, mild mitral regurgitation on AFRICA Acute on chronic kidney disease Acute anemia Hypertension Hyperlipidemia, treated, cholesterol 150, LDL 72.8 Hypothyroid, TSH 1.73 Diabetes mellitus, hemoglobin A1c 7.1% CVA Hepatitis as a child CKD Previous tobacco dependence with recent cessation Severe COPD, preoperative FEV1 27% of predicted Previous methamphetamine use with recent cessation Family history of coronary artery disease with sister having multiple stents Plan: Continue to maximize medical therapy with aspirin, statin, beta-alex, IV Lasix Continue preoperative teaching Increase activity as tolerated, ambulate minimum 3 times daily, discussed with RN Encourage incentive spirometry use Aggressive risk factor management 5 m walk test completed with patient utilizing walker and having a shackles on her legs, #1 18.92 sec, #2 15.45 sec, #3 17.82 sec, patient denied any chest pain or increased shortness of breath during walk test Will complete full pulmonary function test and room air ABG on Monday per pulmonology recommendations Tentatively we will plan for off-pump coronary artery bypass surgery next Monday, February 26, [address] Gillette Management of other comorbidities per internal medicine, cardiology, pulmonology, nephrology More recommendations to follow
[2024-02-21 11:17] LABS: Glucose,Whole Blood 107 mg/dL (70-110)
--- NOTE | 2024-02-21 12:12 | P.PN ---
Subjective HISTORY OF PRESENT ILLNESS: This is a 58-year-old female with a past medical history significant for former nicotine dependence, hypertension, CVA, hypothyroidism, and diabetes. Patient follows in the office with Dr. Saunders and was last seen in May 2023. We have been asked to see the patient in consultation for non-STEMI and CHF. Patient e xamined at the bedside in the emergency room. Patient is currently incarcerated and there is a healthcare financial analyst at the bedside. Patient states she has been feeling short of breath and feeling weak. She states this started about 2 days ago. She states that she was in court and afterwards they had to use a wheelchair to get her back into the vehicle as she was too weak to walk. She also reports feeling dizzy and having pounding in her chest. She reports a slight cough. She denied having a fever previously to her knowledge. However patient was febrile this morning with a temperature of 100.2. She also reports lower extremity edema that started in the middle of December. She reports nausea yesterd ay that was relieved with Zofran. Patient was found to be anemic on admission with a hemoglobin of 7.7. Repeat 7.1. Last hemoglobin was back in 2021 but was normal at 12.3. The patient denies a history of anemia. Unsure if this anemia is new or has been present for a while as her last blood work was not since 2021. She denies any blood in her stool or urine. She does report decreased urine output. Patient was also found to have acute kidney injury with a creatinine of 2.96. Back in 2021, patient's kidney function was within normal limits. Patient was also found to have elevated troponins and was started on IV heparin. She denied having any chest pain or pressure. Patient is a former cigarette smoker and has not smoked in 55 days since being in assisted. She denies alcohol abuse many years ago but nothing recently. She denies drug use including marijuana. DIAGNOSTICS: - EKG reveals sinus mechanism with left bundle branch block. - Chest xray consolation of findings favor CHF over pneumonia. Correlate clinically. Underlying COPD. Loop recorder device seen. Bilateral conso lidation and small effusion with diffuse interstitial pattern.. - Laboratory data: WBC 6.2. Hemoglobin 7.1. Platelet count 300. Sodium 133. Potassium 4.9. BUN 56. Creatinine 2.96. AST 55. ALT 35. proBNP 25,100. Troponin 1.290. 1.760. 2.210. - Current home cardiac medications include Lipitor 20 mg at night. - Most recent echocardiogram obtained in February 2022 revealed ejection fraction 55 to 60%, mild MR, mild TR - Patient underwent dobutamine stress test in March 2023 at the office which was negative for ischemia 02/08/2024 Patient examined this morning at the bedside. Patient states her shortness of breath has improved today. She complains of mild chest discomfort when she feels short of breath. She states the chest pain is worse with deep inspiration. Her lower extremity edema has improved from yesterday. She has been transition to IV Lasix drip per nephrology. Echocardiogram completed revealing ejection fraction 20 to 25%, mild pulm hypertension, moderate to severe mitral regurgitation, mild aortic regurgitation, trace to mild tricuspid regurgitation and small pericardial effusion. 02/09/2024 Patient examined this morning at the bedside. Patient continues to report shortness of breath at the time of examination. She reports that she developed a cough also today. She reports chest discomfort that is worse with deep inspiration. She remains on a Lasix drip at 5 mg an hour. Creatinine 3.41. Hemoglobin 7.4. Blood pressure is stable. Telemetry reveals sinus mechanism. 02/10/2024 Patient examined this morning at the bedside. Patient continues to report shor tness of breath. She continues to have a cough. She denies any chest discomfort at the time of examination. She remains on a Lasix drip at 5 mg an hour. Creatinine today is 3.44. Hemoglobin 7.2. 02/11/2024 Patient examined this morning at the bedside. Patient reports that she slept well overnight. She currently denies any chest pain or pressure. She reports improvement in her shortness of breath and also with her cough. Renal function worsened today at 3.71. She remains on IV Lasix at 10 mg an hour. 02/11 Patient seen and examined. Patient still minutes to significant shortness breath mainly with exertion. She occasionally has some chest tightness however not clearly associated with exertion and more feels like she cannot take a deep breath in. Creatinine stable at 3.8. She is receiving 1 unit of packed red blood cell for hemoglobin 6.7. Remains on IV diuretics. 02/12 Patient is seen today in follow-up. She states she may feel a little bit better after blood transfusion but continues to feel tired, shortness of breath have some chest pain with exertion. Blood pressure 125/80, heart rate between 72 and 91, pulse ox 95% on room air. Repeat blood work reveals hemoglobin 7.4. BUN 83 creatinine 2.6. Discussed option of stress test in the next 1 to 2 days and patient is agreeable for this. 02/13 Patient complains of feeling tired, upset stomach. She has shortness of breath with minimal activity. She had an episode of chest pain last night but none now. Renal function is worsening with BUN of 87 creatinine 3.55. Sodium 135, potassium 4.6. 02/14 Lexiscan Cardiolite stress test came back abnormal with large area of fixed defect involving all segments of the myocardium suggestive of remote ischemia. Cannot exclude a tiny area of stress induced reversibility within the apex. Reduced wall motion activity with EF of only 21%. Results reviewed with patient and next option with cardiac catheterization discussed with the patient with understanding that patient does have abnormal renal function and would need to be cleared by nephrology. Dr. Berman will contact Dr. Lane regarding p ossible cardiac catheterization. Blood pressure 143/84, heart rate 93, pulse ox 95% on 2 L nasal cannula. Patient remains on IV Lasix drip at 10 mg/h. She has a negative fluid balance. She is on a fluid restriction of 1200 mL 02/15 Patient underwent cardiac catheterization today with Dr. Lane which revealed calcified coronary arteries. Severe triple-vessel disease. Right dominance. Mildly elevated LVEDP. She has been seen by CTS with tentative plan for CABG on Monday pending results of AFRICA. Patient will be scheduled tomorrow for AFRICA with Dr. Berman. Blood pressure 113/59, heart rate 96, pulse ox 93% on 2 L nasal cannula. Repeat blood work reveals BUN 85 creatinine 3.58. 02/17 Yesterday, patient underwent AFRICA which revealed aortic valve tricuspid and functioning normally. Mitral valve structurally normal with mild central secondary mitral regurgitation. Pulmonary vein flow has systolic dominance. Tricuspid valve appears to be normal with mild tricuspid regurgitation. Intra- atrial septum is intact with no evidence of PFO. Left atrial appendage free of clot. LV EF 35% with global hypokinesis. Patient is followed by cardiothoracic surgery and also nephrology. If patient is requiring dialysis, plan would be for patient to start dialysis prior to open heart surgery. Patient remains on Lasix drip per nephrology. Patient has a negative fluid balance of 1322. Repe at blood work reveals hemoglobin is 7.9. BUN 82 creatinine 3.39. Mild elevation in liver function test. 02/20/2024 Patient examined this morning at bedside. Patient currently denies chest pain or pressure. She denies shortness of breath. She remains on IV Lasix infusion. Kidney function remained stable. 02/21/2024 Patient examined this morning at the bedside. Patient currently denies chest pain or pressure. She denies shortness of breath. Patient was on an IV Lasix infusion this morning. She has since been transitioned to IV push Lasix 60 mg every 12 hours per nephrology. Chest x-ray this morning revealed CHF with ongoing interstitial pulmonary edema. Small left greater than right pleural effusion also persist. PHYSICAL EXAM: VITAL SIGNS: Reviewed. GENERAL: Well-developed in no acute distress. HEENT: Head is normocephalic. Pupils are equal, round. Sclerae anicteric. Mucous membranes of the mouth are moist. Neck supple. No JVD or thyromegaly LUNGS: Respirations even and unlabored. Lungs essentially clear to auscultation bilaterally. HEART: Regular rate and rhythm. S1 and S2 heard. ABDOMEN: Soft. Nondistended. Nontender. EXTREMITIES: Normal range of motion. No clubbing or cyanosis. Peripheral pulses intact. 1+ bilateral lower extremity edema NEUROLOGIC: Awake and alert. Oriented x 3. ASSESSMENT: Febrile illness Shortness of breath Non-STEMI Triple-vessel coronary artery disease Acute heart failure with reduced EF, 20 to 25% New onset cardiomyopathy, ischemic Left bundle branch block Acute kidney injury, renal function was fairly normal in 2021 Anemia, acute anemia versus anemia of chronic disease due to renal failure, duration of anemia/EDWINA unknown Moderate to severe mitral regurgitation on TTE, mild mitral regurgitation on AFRICA History of hypertension History of CVA x 2 Diabetes Hypothyroidism Former nicotine dependence Minimally elevated LFTs PLAN: Continue current cardiac medications Nephrology following. Patient transition to IV Lasix 60 mg every 12 hours per nephrology Daily weights, accurate intake and output, and monitoring of kidney function CT surgery following. Plan for CABG when patient is medically optimized for surgical intervention. Patient tentatively scheduled for Monday, February 26, 2024 Further recommendations pending patient course Nurse practitioner note has been reviewed by physician. Signing provider agrees with the documented findings, assessment, and plan of care documented by PERCUSSION TUNER as a scribe. Objective - Vital Signs Vital signs: Vital Signs Temp 97.2 F L 02/21/24 08:00 Pulse 80 02/21/24 08:00 Resp 16 02/21/24 08:00 BP 125/72 02/21/24 08:00 Pulse Ox 94 L 02/21/24 08:00 FiO2 Intake & Output 02/20/24 02/21/24 02/21/24 18:59 06:59 18:59 Intake Total 1131.333 328.5 319.167 Output Total 800 500 Balance 331.333 -171.5 319.167 Weight 75.6 kg Intake: Intake, IV Titration 91.333 88.5 83.167 Amount Furosemide 100 mg In 91.333 88.5 83.167 Sodium Chloride 0.9% 90 ml @ 10 MG/HR 10 mls/hr IV .Q10H [facility] Rx#: [id number] Oral 1040 240 236 Output: Urine 800 500 Other: Voiding Method Indwelling Catheter Indwelling Catheter # Bowel Movements 1 - Labs CBC & Chem 7: 02/20/24 11:53 02/20/24 11:53 Labs: Abnormal Lab Results - Last 24 Hours (Table) 02/20/24 02/20/24 02/20/24 Range/Units 11:53 11:53 12:06 RBC 2.58 L (3.80-5.40) m/uL Hgb 7.8 L (11.4-16.0) gm/dL Hct 25.0 L (34.0-46.0) % Sodium 132 L (137-145) mmol/L BUN 84 H (7-17) mg/dL Creatinine 3.31 H (0.52-1.04) mg/dL Glucose 240 H (74-99) mg/dL POC Glucose (mg/dL) 287 H (70-110) mg/dL Calcium 7.7 L (8.4-10.2) mg/dL 02/20/24 02/20/24 02/20/24 Range/Units 16:49 20:38 21:48 RBC (3.80-5.40) m/uL Hgb (11.4-16.0) gm/dL Hct (34.0-46.0) % Sodium (137-145) mmol/L BUN (7-17) mg/dL Creatinine (0.52-1.04) mg/dL Glucose (74-99) mg/dL POC Glucose (mg/dL) 246 H 181 H 191 H (70-110) mg/dL Calcium (8.4-10.2) mg/dL 02/21/24 02/21/24 Range/Units 04:10 05:56 RBC (3.80-5.40) m/uL Hgb (11.4-16.0) gm/dL Hct (34.0-46.0) % Sodium (137-145) mmol/L BUN (7-17) mg/dL Creatinine (0.52-1.04) mg/dL Glucose (74-99) mg/dL POC Glucose (mg/dL) 195 H 182 H (70-110) mg/dL Calcium (8.4-10.2) mg/dL
[2024-02-21 12:25] LABS: Basophils % (A) 0 %; Eosinophils # (A) 0.2 k/uL (0-0.7); Eosinophils % (A) 4 %; HCT 24.5 % (34.0-46.0); HGB 8.2 gm/dL (11.4-16.0); Hypochromasia Moderate; Lymphocytes % (A) 18 %; MCH 32.4 pg (25.0-35.0); MCHC 33.5 g/dL (31.0-37.0); MCV 96.8 fL (80.0-100.0); Mean Platelet Volume 8.5; Monocytes # (A) 0.5 k/uL (0-1.0); Monocytes % (A) 9 %; Neutrophils # (A) 3.6 k/uL (1.3-7.7); Neutrophils % (A) 66 %; Platelet Count 301 k/uL (150-450); Poikilocytosis Slight; RBC 2.53 m/uL (3.80-5.40); RDW 14.7 % (11.5-15.5); WBC 5.5 k/uL (3.8-10.6)
[2024-02-21 12:41] LABS: ALT 37 U/L (4-34); AST 34 U/L (14-36); African American GFR (CKD) 19 (>60 ml/min/1.73 sqM); Albumin 2.2 g/dL (3.5-5.0); Alkaline Phosphatase 181 U/L (38-126); Anion Gap 4 mmol/L; Blood Urea Nitrogen 84 mg/dL (7-17); Calcium 8.1 mg/dL (8.4-10.2); Carbon Dioxide 30 mmol/L (22-30); Chloride 99 mmol/L (98-107); Glucose 108 mg/dL (74-99); Non-African American GFR(CKD) 16 (>60 ml/min/1.73 sqM); Potassium 3.9 mmol/L (3.5-5.1); Sodium 133 mmol/L (137-145); Total Bilirubin 0.2 mg/dL (0.2-1.3); Total Protein 5.3 g/dL (6.3-8.2)
[2024-02-21] MEDS: metOLazone 5 MG TAB PO SCH (12:43)
--- NOTE | 2024-02-21 13:05 | P.PN ---
Subjective This is a pleasant 58 years old female with past medical history of multiple medical problems as below She has been incarcerated for 52 days, there is officer at bedside. Patient presents because of shortness of breath and exertional dyspnea has for the last 2 days, she states she hears herself wheezing when she lies down. Currently she is breathing quietly. She is complaining for mild chest pain on the left side, nonradiating nonspecific, feels much better now and very mild. She has occasional cough but no phlegm. Also she is complaining from upset stomach but no diarrhea or vomiting She complains from decreased urination but no dysuria or urgency. She has mild headache feels generally weak but no dizziness or blurry vision. She used to smoke half pack per day before she got incarcerated No alcohol or illicit drugs. She follow-up with her cleat feeder Dr. Donal Herrera and contact center consultant Dr. Babb who examined her about 2 months ago where she has some mild ulcer In the bottom of her right total This morning patient has low-grade fever 100.2 She is also mildly tachypneic around 22 She is saturating 93% on 2 L oxygen via nasal cannula Labs reviewed showing hemoglobin of 7.7, rest of CBC is unremarkable BMP liver enzymes not elevated. INR 0.9. Lactic 0.9 proBNP is elevated 25 100 EKG showing sinus rhythm at [address]-T changes, no left bundle branch block 02/17/2024 --Patient is seen and evaluated in room at bedside; remains on Lasix drip, remains in negative fluid balance - patient underwent cardiac catheterization which revealed severe triple-vessel coronary artery disease and now she is being evaluated for possible myocardial revascularization. Patient remains on oxygen at 2 L/min and her O2 sats is 97%, her PFT showed severe obstructive lung disease, however not severe enough to not consider myocardial revascularization if the patient is cleared by other consultants including nephrology and cardiology. Patient has been a smoker over the years, she had at least a [id number] smoking history. Remind you patient had a PFT with chest x-ray still showing evidence of pulmonary edema which will definitely compromise her PFT will likely reflect more restriction than obstructive lung disease. WBC count today is 4.9 hemoglobin 7.7 electrolytes are normal BUN is 85 creatinine 3.59 02/18/2024 Patient is seen and evaluated in room at bedside; sitting up in bed; ports stable breathing - patient underwent AFRICA which revealed aortic valve tricuspid and functioning normally. Mitral valve structurally normal with mild central secondary mitral regurgitation. Pulmonary vein flow has systolic dominance. Tricuspid valve appears to be normal with mild tricuspid regurgitation. Intra-atrial septum is intact with no evidence of PFO. Left atrial appendage free of clot. LV EF 35% with global hypokinesis. -- Patient is followed by cardiothoracic surgery and also nephrology. Nephrology not recommending any indication or need for hemodialysis. Patient remains on Lasix drip per nephrology. Patient has a negative fluid balance of 1322. Repeat blood work reveals hemoglobin is 7.9. BUN 82 creatinine 3.39. Mild elevation in liver function test. -Plan for surgery once clinically optimized 02/19/2024 Patient looks more awake than admission, sitting up in bed. [facility] officers at bedside Mentation at baseline. She talks freely. Denies chest pain or dyspnea at rest On presentation patient was found acute CHF and non-STEMI, workup showing triple-vessel coronary artery disease and patient will require bypass procedure with cardiothoracic surgery team on the case once medically optimized. Patient currently with fluid overload on Lasix drip, on admission it was 5 mg/h, currently increased to 10 mg/h. She is making around 1 L of urine output by yesterday. Saldaña catheter in place. She is also on aspirin 81 mg Hemoglobin 8.5, creatinine 3.3 compared to 2.7 on admission with baseline 0.9- 1.2. Liver enzymes mildly elevated since admission. 02/20/2024 Patient came from halfway for an NSTEMI. Workup showing severe triple-vessel coronary artery disease currently being evaluated by cardiothoracic surgery team for possible cardiac bypass procedure. However she needs optimization and she is currently kept on IV Lasix 10 mg, creatinine went up 3.3 today. Lead Applier recommended to continue with Lasix drip still tomorrow Patient diabetic, she is on Levemir 8 units twice daily, she is developing episodes of hypoglycemia we will going to lower the dose to 6 units twice daily She is also on aspirin 325 mg 02/21/2024 Patient continues to improve today, she is more energetic, less dyspneic Lasix drip switched to IV Lasix 60 mg twice daily Cardiothoracic surgery team with plan for valve replacement surgery on this coming Sunday 02/25 Sugars better controlled with no hyperglycemia on Levemir 6 units twice daily Objective - Vital Signs Vital signs: Vital Signs Temp 97.2 F L 02/21/24 08:00 Pulse 94 02/21/24 13:01 Resp 18 02/21/24 13:01 BP 122/61 02/21/24 12:00 Pulse Ox 92 L 02/21/24 12:00 FiO2 Intake & Output 02/20/24 02/21/24 02/21/24 18:59 06:59 18:59 Intake Total 1131.333 328.5 559.167 Output Total 800 500 800 Balance 331.333 -171.5 -240.833 Weight 75.6 kg Intake: Intake, IV Titration 91.333 88.5 83.167 Amount Furosemide 100 mg In 91.333 88.5 83.167 Sodium Chloride 0.9% 90 ml @ 10 MG/HR 10 mls/hr IV .Q10H [id number] Rx#: [id number] Oral 1040 240 476 Output: Urine 800 500 800 Other: Voiding Method Indwelling Catheter Indwelling Catheter Indwelling Catheter # Bowel Movements 1 - Exam -GENERAL: The patient is alert and oriented x3, not in any acute distress. Well developed, well nourished. Generally weak and lethargic HEENT: Pupils are round and equally reacting to light. EOMI. No scleral icterus. No conjunctival pallor. Normocephalic, atraumatic. No pharyngeal erythema. No thyromegaly. CARDIOVASCULAR: S1 and S2 present. No murmurs, rubs, or gallops. -PULMONARY: Chest is clear to auscultation, no wheezing , no crackles. Tachypnea -ABDOMEN: Soft, nontender, nondistended, normoactive bowel sounds. No palpable organomegaly. Saldaña catheter in place MUSCULOSKELETAL: No joint swelling or deformity. -EXTREMITIES: No cyanosis, clubbing, 1+ bilateral pitting leg edema. NEUROLOGICAL: Gross neurological examination did not reveal any focal deficits. SKIN: No rashes. no petechiae. - Labs CBC & Chem 7: 02/21/24 11:53 02/21/24 11:53 Labs: Abnormal Lab Results - Last 24 Hours (Table) 02/20/24 02/20/24 02/20/24 Range/Units 16:49 20:38 21:48 RBC (3.80-5.40) m/uL Hgb (11.4-16.0) gm/dL Hct (34.0-46.0) % Sodium (137-145) mmol/L BUN (7-17) mg/dL Creatinine (0.52-1.04) mg/dL Glucose (74-99) mg/dL POC Glucose (mg/dL) 246 H 181 H 191 H (70-110) mg/dL Calcium (8.4-10.2) mg/dL ALT (4-34) U/L Alkaline Phosphatase (38-126) U/L Total Protein (6.3-8.2) g/dL Albumin (3.5-5.0) g/dL 02/21/24 02/21/24 02/21/24 Range/Units 04:10 05:56 11:53 RBC (3.80-5.40) m/uL Hgb (11.4-16.0) gm/dL Hct (34.0-46.0) % Sodium 133 L (137-145) mmol/L BUN 84 H (7-17) mg/dL Creatinine 3.05 H (0.52-1.04) mg/dL Glucose 108 H (74-99) mg/dL POC Glucose (mg/dL) 195 H 182 H (70-110) mg/dL Calcium 8.1 L (8.4-10.2) mg/dL ALT 37 H (4-34) U/L Alkaline Phosphatase 181 H (38-126) U/L Total Protein 5.3 L (6.3-8.2) g/dL Albumin 2.2 L (3.5-5.0) g/dL 02/21/24 Range/Units 11:53 RBC 2.53 L (3.80-5.40) m/uL Hgb 8.2 L (11.4-16.0) gm/dL Hct 24.5 L (34.0-46.0) % Sodium (137-145) mmol/L BUN (7-17) mg/dL Creatinine (0.52-1.04) mg/dL Glucose (74-99) mg/dL POC Glucose (mg/dL) (70-110) mg/dL Calcium (8.4-10.2) mg/dL ALT (4-34) U/L Alkaline Phosphatase (38-126) U/L Total Protein (6.3-8.2) g/dL Albumin (3.5-5.0) g/dL Assessment and Plan Assessment: Acute systolic CHF exacerbation, ejection fraction: 20 to 25% non-STEMI, ekg New left bundle branch block, secondary to triple-vessel coronary artery disease requiring CABG Mild hypoxic respiratory failure, improved Acute kidney injury on chronic kidney disease, nonoliguric Acute on chronic anemia of chronic disease Acute urinary tract infection, urine culture showing skin or genital kwesi. 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 Labs and medication were reviewed.. Continue same treatment. Continue with symptomatic treatment. Resume home medication. Monitor labs and vitals. DVT and GI prophylaxis. Further recommendations as per clinical course of the patient DVT prophylaxis: heparin GI Prophylaxis: Pepcid Prognosis is guarded given her multiple disease of the heart kidneys
--- NOTE | 2024-02-21 13:14 | P.PN ---
Subjective Progress Note Date: 02/21/24 Patient is a 58-year-old white female with past medical history significant for COPD, chronic ongoing tobacco dependence, CVA/TIA, diabetes mellitus, hyperlipidemia, hypertension, hypothyroidism, fibromyalgia, GERD, among other things. Patient presented back on 02/06/2024 from residential with chief complaint of increased lower extremity swelling. She states that she first noted the swelling back in December,. It is progressively worsened, she states she has gained approximately 20 pounds over the last 2 months. Approximately 10 days ago she was awoken at night with substernal chest pain. Nonradiating. With associated shortness of breath and sweating. Lasted up to 15 minutes. She is also had a nonproductive cough. She was noted to be febrile this admission. She is empirically covered on antibiotics. On arrival to the emergency room, she was noted to have elevated troponins of 1.29, 1.76, and 2.2. EKG showed normal sinus rhythm with left bundle branch block, without any other acute isc hemic changes. No previous EKG for comparison. She was started on heparin infusion per protocol. She also was on a Nitropaste. Echocardiogram showed a severely impaired left ventricular ejection fraction of 20 to 25%, and moderate to severe mitral regurgitation. Today, she was started on a Lasix infusion at 5 mg/h. Heparin infusion was stopped as the patient is anemic. Patient denies any acute blood loss. No vaginal bleeding. No juan blood in stool. No melena. No nausea or vomiting or hematic emesis. Last colonoscopy was reportedly around 10 years ago. She is currently lying in bed, on 2 L/min nasal cannula. Chest x-ray on admission shows diffuse interstitial edema as well as bilateral consolidation and small effusions. Findings consistent with congestive heart failure. NT proBNP was elevated 25,000. Patient not making much urine despite Lasix infusion. Patient did have 1 episode of fever during her admission with a Tmax of 100.2 F. She was empirically she was empirically placed on Rocephin. Negative for influenza, RSV, COVID. Most recent BMP from today: Sodium 130, potassium 5.1, chloride 104, serum bicarb down to 17, BUN 63, creatinine worsening and 3.34, glucose 229. LFTs mildly elevated. Hepatitis panel nonreactive. Overall, hemodynamically stable. On 02/08/2024, seen the patient for a follow-up. The patient is currently on 3 L of oxygen by nasal cannula with a pulse ox of 94%. She should be able to wean down. She is on Lasix drip at 5 mg an hour and the patient is producing adequate amount of urine output. Her fluid balance is negative. As mentioned, the patient is post non-ST segment ovation myocardial infarction the patient is being seen by cardiology. The patient has severe cardiomyopathy with impaired left ventricular ejection fraction. Her blood work from today shows a BUN of 66 with a creatinine of 3.41 and this is consistent with an acute on chronic kidney injury. Sodium levels at 129, potassium is at 4.4 with a WBC count of 6.3 and a hemoglobin of 7.4. The patient is on IV Rocephin as an empiric antibiotic coverage. She is currently afebrile. The patient is being seen by cardiology. The patient will be kept on IV Lasix. Not a candidate for any invasive cardiac workup due to her acute on top of chronic kidney injury at this point in time. Her comorbidities are multiple. Unsure if she does have underlying coronary artery disease. Nevertheless, she has previous history of CVA, diabetes mellitus type 2, hypothyroidism and CHF. She was in residential for being arrested due to possession of amphetamines. Vasculitis workup was negative including a negative EDSON and a negative P and C ANCA. Hepatitis profile was also negative. On 02/10/2024, the patient is being seen for a follow-up. No new complaints. No significant shortness of breath at rest. Remains on Lasix drip. Producing adequate amount of urine output. Blood work from today was noticed that the patient has a white cell count of 6 with a hemoglobin of 7.2 and a PET scan at 360. BUN 69 with a creatinine of 3.4 and a sodium levels at 129. The patient is being seen by cardiology and nephrology addition. She remains on Lasix drip which will be increased up to 10 mg an hour. Not a candidate for further cardiac catheterization based on underlying renal dysfunction. 02/11/2024, the patient is being seen for a follow-up. No new complaints. Monitor for improvement in her condition. She remains on 2 L of oxygen by nasal cannula. Fluid balance is -90 cc over the past 24 hours. Suboptimal response to diuretics and the patient remains on Lasix at 10 mg an hour. BUN 71 with a creatinine of 3.7, slightly worse compared to yesterday. Sodium is at 131. The patient denies having any chest pain. No significant hypotension. Remains on aspirin. Remains on metoprolol 25 mg p.o. twice a day. Cardiology on the case. She has significant cardiomyopathy. She is post acute non-STEMI. Not a candidate for cardiac catheterization due to renal impairment. The patient is seen today February 12, 2024 in follow-up on the selective care unit. She is currently sitting up in bed. Awake and alert in no acute distress. She is maintaining O2 saturation in the 90s on 3 L nasal cannula. She is afebrile. Hemodynamically stable. Today's chest x-ray reviewed reveals diffuse bilateral infiltrates with small effusion or early congestive heart failure. Hemoglobin 6.7. 1 unit of packed blood cells have been ordered. Platelets 362. White cou nt 6.1. Sodium 131. Potassium 4.2. Bicarb 21. BUN 80. Creatinine 3.89. Glucose 286. She remains on. Antibiotics in the form of ceftriaxone. Remains on a Lasix drip at 5 mg an hour. Currently in a -178 mL balance. The patient is seen today February 13, 2024 in follow-up on the selective care unit. She is awake and alert in no acute distress. Sitting up in bed. Blood and urine cultures revealed no growth. White count 6.2. Hemoglobin 7.4. Platelets 01/05/1978. Sodium 133. Potassium 3.9. Bicarb 21. BUN 83. Creatinine 3.60. Glucose 154. She remains on a Lasix drip currently at 5 mg/h. She remains on a heparin drip. Receiving sodium bicarb tablets. Continued on bronchodilators. Continued on antibiotics in the form of ceftriaxone. She is currently in a negative balance. Voided 1 L today. The patient is seen today February 14, 2024 in follow-up on the selective care unit. She is currently sitting up in bed. Awake and alert in no acute distress. She is maintaining good O2 saturations in the 90s on 3 L/min per nasal cannula. She is afebrile. Hemodynamically stable. Follow-up chest x-ray continues to show diffuse bilateral infiltrate with small effusions. She is status post 1 unit of packed red blood cells this admission. Last hemoglobin 7.7. Sodium 135. Potassium 4.6. Bicarb 20. BUN 87. Creatinine 3.55. Glucose 358. She is continued on bronchodilators. Antibiotics in form of ceftriaxone. She remains on a Lasix drip at 10 mg/h. Receiving sodium bicarb tablets. Currently -688 mL balance. Nephrology is following. The patient is seen today February 15, 2024 in follow-up on the selective care unit. She is currently sitting up in bed awake and alert in no acute distress. She is maintaining O2 saturations in the mid 90s on 2 L/min per nasal cannula. She is afebrile. Hemodynamically stable. White count 6.8. Hemoglobin 8.6. Platelets 438. Sodium 135. Potassium 4.0. Bicarb 21. BUN 84. Creatinine 3.41. Glucose 171. She remains on a Lasix drip at 10 mg/h. Continued on a heparin drip. Plan to -1 L balance. Stress testing today reveals a large area of fixed defect involving all segments of the myocardium suggestive of remote ischemia. Could not exclude a tiny area of stress-induced reversibility within the apex. Reduced wall motion activity with ejection fraction of only 21%. The patient is seen today February 20, 2024 in follow-up on the selective care unit. She is currently sitting up in bed. Awake and alert in no acute distress. She is maintaining O2 saturations in the 90s on 3 L/min per nasal cannula. She remains on a Lasix drip at 10 mg/h. Currently net -1 L balance. White count 4.8. Hemoglobin 7.8. Platelets 309. Sodium 132. Potassium 3.7. Bicarb 28. BUN 84. Creatinine 3.31. Glucose 240. She remains on bronchodilators. Heparin for DVT prophylaxis. She has been worked up for possible coronary artery bypass surgery once she recovers from her acute illness. The patient is seen today February 21, 2024 in follow-up on the selective care unit. She is awake and alert in no acute distress. Maintaining good O2 saturations in the 90s on 2 L/min per nasal cannula. She is continued on Lasix drip at 10 mg/h. This x-ray continues to show interstitial pulmonary edema with small left greater than right pleural effusions. She is status post 1 unit of packed red blood cells this admission. Current hemoglobin 8.2. Platelets 301. White count 5.5. Sodium 133. Potassium 3.9. Bicarb 30. BUN 84. Creatinine 3.05. Glucose 108. Remains on bronchodilators. Heparin for DVT prophylaxis. She is currently in a +159 ml balance. Objective - Vital Signs Vital signs: Vital Signs Temp 97.2 F L 02/21/24 08:00 Pulse 94 02/21/24 13:01 Resp 18 02/21/24 13:01 BP 122/61 02/21/24 12:00 Pulse Ox 92 L 02/21/24 12:00 FiO2 Intake & Output 02/20/24 02/21/24 02/21/24 18:59 06:59 18:59 Intake Total 1131.333 328.5 559.167 Output Total 800 500 800 Balance 331.333 -171.5 -240.833 Weight 75.6 kg Intake: Intake, IV Titration 91.333 88.5 83.167 Amount Furosemide 100 mg In 91.333 88.5 83.167 Sodium Chloride 0.9% 90 ml @ 10 MG/HR 10 mls/hr IV .Q10H [facility] Rx#: [id number] Oral 1040 240 476 Output: Urine 800 500 800 Other: Voiding Method Indwelling Catheter Indwelling Catheter Indwelling Catheter # Bowel Movements 1 - Exam GENERAL EXAM: Alert, 58-year-old female, on 3 L nasal cannula, in no apparent distress. HEAD: Normocephalic and atraumatic EYES: Normal reaction of pupils, equal size. NOSE: Clear with pink turbinates. THROAT: No erythema or exudates. NECK: No masses, no JVD. CHEST: No chest wall deformity. LUNGS: Equal air entry with bibasilar crackles and mild and expiratory wheezes heard bilaterally. CVS: S1 and S2 normal with no audible murmur, regular rhythm. No extra heart so unds ABDOMEN: No hepatosplenomegaly, active bowel sounds, no guarding or rigidity. SPINE: No scoliosis or deformity SKIN: No rashes CENTRAL NERVOUS SYSTEM: No focal deficits, tone is normal in all 4 extremities. EXTREMITIES: There is lower extremity pitting edema, 1-2+ bilaterally. No clubbing, or cyanosis. Peripheral pulses are intact. - Labs CBC & Chem 7: 02/21/24 11:53 02/21/24 11:53 Labs: Abnormal Lab Results - Last 24 Hours (Table) 02/20/24 02/20/24 02/20/24 Range/Units 16:49 20:38 21:48 RBC (3.80-5.40) m/uL Hgb (11.4-16.0) gm/dL Hct (34.0-46.0) % Sodium (137-145) mmol/L BUN (7-17) mg/dL Creatinine (0.52-1.04) mg/dL Glucose (74-99) mg/dL POC Glucose (mg/dL) 246 H 181 H 191 H (70-110) mg/dL Calcium (8.4-10.2) mg/dL ALT (4-34) U/L Alkaline Phosphatase (38-126) U/L Total Protein (6.3-8.2) g/dL Albumin (3.5-5.0) g/dL 02/21/24 02/21/24 02/21/24 Range/Units 04:10 05:56 11:53 RBC (3.80-5.40) m/uL Hgb (11.4-16.0) gm/dL Hct (34.0-46.0) % Sodium 133 L (137-145) mmol/L BUN 84 H (7-17) mg/dL Creatinine 3.05 H (0.52-1.04) mg/dL Glucose 108 H (74-99) mg/dL POC Glucose (mg/dL) 195 H 182 H (70-110) mg/dL Calcium 8.1 L (8.4-10.2) mg/dL ALT 37 H (4-34) U/L Alkaline Phosphatase 181 H (38-126) U/L Total Protein 5.3 L (6.3-8.2) g/dL Albumin 2.2 L (3.5-5.0) g/dL 02/21/24 Range/Units 11:53 RBC 2.53 L (3.80-5.40) m/uL Hgb 8.2 L (11.4-16.0) gm/dL Hct 24.5 L (34.0-46.0) % Sodium (137-145) mmol/L BUN (7-17) mg/dL Creatinine (0.52-1.04) mg/dL Glucose (74-99) mg/dL POC Glucose (mg/dL) (70-110) mg/dL Calcium (8.4-10.2) mg/dL ALT (4-34) U/L Alkaline Phosphatase (38-126) U/L Total Protein (6.3-8.2) g/dL Albumin (3.5-5.0) g/dL Assessment and Plan Assessment: Acute non-ST elevation OK. Stress testing today 02/15/2024 reveals a large area of fixed defect involving all segments of the myocardium suggestive of remote ischemia. Cannot exclude a tiny area of stress-induced reversibility within the apex. Reduced wall motion activity with ejection fraction of only 21%. Cardiac catheterization from 02/16/2024 revealed calcified coronary arteries. Severe triple-vessel disease. Being evaluated for possible revascularization surgery Acute hypoxemic respiratory failure, currently on 3 L/min nasal cannula, secondary to exacerbation of systolic congestive heart failure and above, Chest x-ray on admission shows diffuse interstitial edema as well as bilateral consolidation and small effusions. Findings consistent with congestive heart failure, however, superimposed community-acquired bibasilar pneumonia is not excluded. Ischemic cardiomyopathy with an estimated left ventricular ejection fraction se verely impaired at 20 to 25% as well as moderate to severe mitral valve regurgitation, currently on Lasix infusion at 10 mg/h, diuresing well. Severe mitral valve regurgitation Acute febrile illness, recovered Normocytic normochromic anemia, current hemoglobin 8.2, received 1 unit of packed red blood cell Acute kidney injury, likely cardiorenal, current creatinine 3.31 Metabolic non-anion gap acidosis, secondary to above Chronic obstructive pulmonary disease, stable Diabetes mellitus type 1 History of hyperlipidemia History of hypertension History of CVA/TIA History of hypothyroidism History of fibromyalgia History of GERD Mildly elevated LFTs, hepatitis panel nonreactive Former tobacco smoker, 1/2 pack/day or approximately 15-year pack history Plan: The patient was seen and evaluated Labs and medications reviewed Stable on 3 L nasal Remains on diuretics May require hemodialysis Being worked up for possible bypass surgery We will plan for repeat spirometry prior to surgery We will continue to follow I have personally seen and examined the patient, performed the documentation and the assessment and plan as written. Number of minutes spent on the visit: 10.
[2024-02-21 16:25] LABS: Glucose,Whole Blood 294 mg/dL (70-110)
--- NOTE | 2024-02-21 19:03 | P.PN ---
Subjective patient is seen for follow-up for acute kidney injury. Currently being diuresed. Patient is maintained on Lasix drip. serum creatinine decreased to 3.0 mg/dL. urine output at 1.3 L for 24 hours. no complaints of shortness of breath. Officer is present at bedside. Objective - Vital Signs Vital signs: Vital Signs Temp 97.2 F L 02/21/24 08:00 Pulse 84 02/21/24 15:51 Resp 16 02/21/24 15:51 BP 129/59 02/21/24 15:51 Pulse Ox 95 02/21/24 15:51 FiO2 Intake & Output 02/21/24 02/21/24 02/22/24 06:59 18:59 06:59 Intake Total 328.5 559.167 Output Total 500 800 Balance -171.5 -240.833 Weight 75.6 kg Intake: Intake, IV Titration 88.5 83.167 Amount Furosemide 100 mg In 88.5 83.167 Sodium Chloride 0.9% 90 ml @ 10 MG/HR 10 mls/hr IV .Q10H [facility] Rx#: [id number] Oral 240 476 Output: Urine 500 800 Other: Voiding Method Indwelling Catheter Indwelling Catheter - Exam patient is awake, comfortable, no acute distress Alert oriented 3 Examination of the heart S1 and S2 Examination of the lungs bilateral breath sounds are heard Abdomen is soft nontender Examination of lower extremities shows 1+ edema. [employer] exam grossly intact - Labs CBC & Chem 7: 02/21/24 11:53 02/21/24 11:53 Labs: Abnormal Lab Results - Last 24 Hours (Table) 02/20/24 02/20/24 02/21/24 Range/Units 20:38 21:48 04:10 RBC (3.80-5.40) m/uL Hgb (11.4-16.0) gm/dL Hct (34.0-46.0) % Sodium (137-145) mmol/L BUN (7-17) mg/dL Creatinine (0.52-1.04) mg/dL Glucose (74-99) mg/dL POC Glucose (mg/dL) 181 H 191 H 195 H (70-110) mg/dL Calcium (8.4-10.2) mg/dL ALT (4-34) U/L Alkaline Phosphatase (38-126) U/L Total Protein (6.3-8.2) g/dL Albumin (3.5-5.0) g/dL 02/21/24 02/21/24 02/21/24 Range/Units 05:56 11:53 11:53 RBC 2.53 L (3.80-5.40) m/uL Hgb 8.2 L (11.4-16.0) gm/dL Hct 24.5 L (34.0-46.0) % Sodium 133 L (137-145) mmol/L BUN 84 H (7-17) mg/dL Creatinine 3.05 H (0.52-1.04) mg/dL Glucose 108 H (74-99) mg/dL POC Glucose (mg/dL) 182 H (70-110) mg/dL Calcium 8.1 L (8.4-10.2) mg/dL ALT 37 H (4-34) U/L Alkaline Phosphatase 181 H (38-126) U/L Total Protein 5.3 L (6.3-8.2) g/dL Albumin 2.2 L (3.5-5.0) g/dL 02/21/24 Range/Units 16:14 RBC (3.80-5.40) m/uL Hgb (11.4-16.0) gm/dL Hct (34.0-46.0) % Sodium (137-145) mmol/L BUN (7-17) mg/dL Creatinine (0.52-1.04) mg/dL Glucose (74-99) mg/dL POC Glucose (mg/dL) 294 H (70-110) mg/dL Calcium (8.4-10.2) mg/dL ALT (4-34) U/L Alkaline Phosphatase (38-126) U/L Total Protein (6.3-8.2) g/dL Albumin (3.5-5.0) g/dL Assessment and Plan Assessment: 1. Acute kidney injury secondary to ATN secondary to cardiorenal syndrome. Creatinine decreased to 3.0. Creatinine as low as 0.98 dated March 01, 2022. No hydronephrosis noted on kidney ultrasound. Serologies negative. good urine output. Maintained on Lasix drip. 2. Acute on chronic systolic CHF with ejection fraction of 20 to 25% with moderate to severe mitral regurgitation and mild pulmonary hypertension. 3. Volume overload. Improving with diuresis. 4. Anemia. Iron deficiency noted. Status post IV iron. On Aranesp. GI following. Status post blood transfusion this admission. Also received IV DDAVP. 5. Metabolic acidosis secondary to acute kidney injury. On oral bicarb. Stable. 6. Hypervolemic hyponatremia. Also component of hypertonicity from hyperglycem ia. Better. 7. Urinary retention status post Saldaña catheter placement. On Flomax. Plan: Switch to IV push Lasix Add metolazone. Repeat labs in a.m.
[2024-02-21 20:28] LABS: Glucose,Whole Blood 187 mg/dL (70-110)
[2024-02-21] MEDS ORDERED: FUROSEMIDE 10 MG/ML 4 ML VIAL IV SCH (21:00)
[2024-02-21] MEDS: FUROSEMIDE 10 MG/ML 10 ML VIAL IV SCH (21:39)
[2024-02-22 05:01] LABS: Glucose,Whole Blood 359 mg/dL (70-110)
[2024-02-22 06:18] LABS: Glucose,Whole Blood 269 mg/dL (70-110)
--- NOTE | 2024-02-22 10:21 | P.PN ---
Subjective Progress Note Date: 02/22/24 Principal diagnosis: Triple-vessel coronary artery disease, non-STEMI this admission, acute heart failure with reduced ejection fraction, new onset ischemic cardiomyopathy, moderate to severe mitral regurgitation, acute on chronic kidney disease, acute anemia. History of hypertension, hyperlipidemia, hypothyroid, diabetes mellitus, CVA, hepatitis as a child, CKD stage IV, previous tobacco dependence with recent cessation, severe COPD, previous methamphetamine use with recent cessation, family history of coronary artery disease The patient was seen and examined this morning sitting up in bed on the cardiac stepdown unit in no acute distress, campus police officer present. Patient currently denies any chest pain or increased shortness of breath. States she feels much better than when she came in although still requiring oxygen. IV Lasix switched to intermittent instead of continuous drip. 5 m walk test was completed yesterday, patient gave a good effort but was very slow with walking, needed walker, legs shackled. She did tolerate the walking without getting progre ssively short of breath or having any chest pain. Will need to reevaluate lung function, plan for arterial blood gas and repeat bedside spirometry on Monday per recommendations from a pulmonology. Currently our plan is for off-pump CABG on Monday with Dr. Gillette. No other new concerns at this time. Objective - Vital Signs Vital signs: Vital Signs Temp 97.9 F 02/22/24 08:00 Pulse 80 02/22/24 08:11 Resp 16 02/22/24 08:00 BP 111/65 02/22/24 08:00 Pulse Ox 95 02/22/24 08:00 FiO2 Intake & Output 02/21/24 02/22/24 02/22/24 18:59 06:59 18:59 Intake Total 559.167 540 118 Output Total 800 1100 Balance -240.833 -560 118 Weight 75.4 kg Intake: Intake, IV Titration 83.167 Amount Furosemide 100 mg In 83.167 Sodium Chloride 0.9% 90 ml @ 10 MG/HR 10 mls/hr IV .Q10H [facility] Rx#: [id number] Oral 476 540 118 Output: Urine 800 1100 Other: Voiding Method Indwelling Catheter Indwelling Catheter - Exam CONSTITUTIONAL: Appears comfortable, cooperative, no acute distress RESPIRATORY: Lungs sounds diminished bilaterally. Respirations even, nonlabored. Currently on 2 L nasal cannula with oxygen saturation 92%. Strong cough. CARDIOVASCULAR: S1, S2 present. Regular rate and rhythm, sinus rhythm on telemetry. Palpable peripheral pulses bilaterally. No edema present. No calf pain or tenderness noted GASTROINTESTINAL: Abdomen soft, nontender, nondistended. Active bowel sounds present 4 quadrants. Tolerating diet. Positive bowel movement 02/19 GENITOURINARY: Saldaña present draining clear, yellow urine. Output overnight 1900 mL in the last 24 hours INTEGUMENTARY: Skin is warm and dry NEUROLOGIC: Cranial nerves II through XII intact MUSKULOSKELETAL: Able to move all extremities, strength equal bilaterally PSYCHIATRIC: Alert and oriented to person place and time, appropriate affect, intact judgment and insight - Allied health notes Allied health notes reviewed: nursing - Labs CBC & Chem 7: 02/21/24 11:53 02/21/24 11:53 Labs: Abnormal Lab Results - Last 24 Hours (Table) 02/21/24 02/21/24 02/21/24 Range/Units 11:53 11:53 16:14 RBC 2.53 L (3.80-5.40) m/uL Hgb 8.2 L (11.4-16.0) gm/dL Hct 24.5 L (34.0-46.0) % Sodium 133 L (137-145) mmol/L BUN 84 H (7-17) mg/dL Creatinine 3.05 H (0.52-1.04) mg/dL Glucose 108 H (74-99) mg/dL POC Glucose (mg/dL) 294 H (70-110) mg/dL Calcium 8.1 L (8.4-10.2) mg/dL ALT 37 H (4-34) U/L Alkaline Phosphatase 181 H (38-126) U/L Total Protein 5.3 L (6.3-8.2) g/dL Albumin 2.2 L (3.5-5.0) g/dL 02/21/24 02/22/24 02/22/24 Range/Units 20:24 04:59 06:10 RBC (3.80-5.40) m/uL Hgb (11.4-16.0) gm/dL Hct (34.0-46.0) % Sodium (137-145) mmol/L BUN (7-17) mg/dL Creatinine (0.52-1.04) mg/dL Glucose (74-99) mg/dL POC Glucose (mg/dL) 187 H 359 H 269 H (70-110) mg/dL Calcium (8.4-10.2) mg/dL ALT (4-34) U/L Alkaline Phosphatase (38-126) U/L Total Protein (6.3-8.2) g/dL Albumin (3.5-5.0) g/dL - Imaging and Cardiology Chest x-ray: image reviewed Assessment and Plan Assessment: Triple-vessel coronary artery disease, non-STEMI this admission Acute heart failure with reduced ejection fraction, 20-25%, 35% on [place] New onset ischemic cardiomyopathy Moderate to severe mitral regurgitation on transthoracic echocardiogram, mild mitral regurgitation on [place] Acute on chronic kidney disease Acute anemia Hypertension Hyperlipidemia, treated, cholesterol 150, LDL 72.8 Hypothyroid, TSH 1.73 Diabetes mellitus, hemoglobin A1c 7.1% CVA Hepatitis as a child CKD Previous tobacco dependence with recent cessation Severe COPD, preoperative FEV1 27% of predicted Previous methamphetamine use with recent cessation Family history of coronary artery disease with sister having multiple stents Plan: Continue to maximize medical therapy with aspirin, statin, beta-alex, IV Lasix Continue preoperative teaching Increase activity as tolerated, ambulate minimum 3 times daily, discussed with RN Encourage incentive spirometry use Aggressive risk factor management Will repeat bedside spirometry and room air ABG on Monday per pulmonology recommendations Tentatively we will plan for off-pump coronary artery bypass surgery next Monday, February 26, [address] Gillette Management of other comorbidities per internal medicine, cardiology, pulmonology, nephrology More recommendations to follow
--- NOTE | 2024-02-22 10:51 | P.PN ---
Subjective patient is seen for follow-up for acute kidney injury. Currently being diuresed. status post Lasix drip. serum creatinine decreased to 3.0 mg/dL. urine output at 1.9 L for 24 hours. no complaints of shortness of breath. Officer is present at bedside. Objective - Vital Signs Vital signs: Vital Signs Temp 97.9 F 02/22/24 08:00 Pulse 80 02/22/24 08:11 Resp 16 02/22/24 08:00 BP 111/65 02/22/24 08:00 Pulse Ox 95 02/22/24 08:00 FiO2 Intake & Output 02/21/24 02/22/24 02/22/24 18:59 06:59 18:59 Intake Total 559.167 540 118 Output Total 800 1100 Balance -240.833 -560 118 Weight 75.4 kg 75.4 kg Intake: Intake, IV Titration 83.167 Amount Furosemide 100 mg In 83.167 Sodium Chloride 0.9% 90 ml @ 10 MG/HR 10 mls/hr IV .Q10H [facility] Rx#: [id number] Oral 476 540 118 Output: Urine 800 1100 Other: Voiding Method Indwelling Catheter Indwelling Catheter - Exam patient is awake, comfortable, no acute distress Alert oriented 3 Examination of the heart S1 and S2 Examination of the lungs bilateral breath sounds are heard Abdomen is soft nontender Examination of lower extremities shows Trace edema. HOUSING DEVELOPMENT SPECIALIST exam grossly intact - Labs CBC & Chem 7: 02/21/24 11:53 02/21/24 11:53 Labs: Abnormal Lab Results - Last 24 Hours (Table) 02/21/24 02/21/24 02/21/24 Range/Units 11:53 11:53 16:14 RBC 2.53 L (3.80-5.40) m/uL Hgb 8.2 L (11.4-16.0) gm/dL Hct 24.5 L (34.0-46.0) % Sodium 133 L (137-145) mmol/L BUN 84 H (7-17) mg/dL Creatinine 3.05 H (0.52-1.04) mg/dL Glucose 108 H (74-99) mg/dL POC Glucose (mg/dL) 294 H (70-110) mg/dL Calcium 8.1 L (8.4-10.2) mg/dL ALT 37 H (4-34) U/L Alkaline Phosphatase 181 H (38-126) U/L Total Protein 5.3 L (6.3-8.2) g/dL Albumin 2.2 L (3.5-5.0) g/dL 02/21/24 02/22/24 02/22/24 Range/Units 20:24 04:59 06:10 RBC (3.80-5.40) m/uL Hgb (11.4-16.0) gm/dL Hct (34.0-46.0) % Sodium (137-145) mmol/L BUN (7-17) mg/dL Creatinine (0.52-1.04) mg/dL Glucose (74-99) mg/dL POC Glucose (mg/dL) 187 H 359 H 269 H (70-110) mg/dL Calcium (8.4-10.2) mg/dL ALT (4-34) U/L Alkaline Phosphatase (38-126) U/L Total Protein (6.3-8.2) g/dL Albumin (3.5-5.0) g/dL Assessment and Plan Assessment: 1. Acute kidney injury secondary to ATN secondary to cardiorenal syndrome. Creatinine decreased to 3.0. Creatinine as low as 0.98 dated March 01, 2022. No hydronephrosis noted on kidney ultrasound. Serologies negative. good urine output. status post Lasix drip 2. Acute on chronic systolic CHF with ejection fraction of 20 to 25% with moderate to severe mitral regurgitation and mild pulmonary hypertension. 3. Volume overload. Improving with diuresis. 4. Anemia. Iron deficiency noted. Status post IV iron. On Aranesp. GI following. Status post blood transfusion this admission. Also received IV DDAVP. 5. Metabolic acidosis secondary to acute kidney injury. On oral bicarb. Stable. 6. Hypervolemic hyponatremia. Also component of hypertonicity from hyperglycemia. Better. 7. Urinary retention status post Saldaña catheter placement. On Flomax. Plan: continue with current dose of IV Lasix along with metolazone. Follow-up on labs from today. Repeat labs in a.m.
--- NOTE | 2024-02-22 11:27 | P.PN ---
Subjective HISTORY OF PRESENT ILLNESS: This is a 58-year-old female with a past medical history significant for former nicotine dependence, hypertension, CVA, hypothyroidism, and diabetes. Patient follows in the office with Dr. Saunders and was last seen in May 2023. We have been asked to see the patient in consultation for non-STEMI and CHF. Patient e xamined at the bedside in the emergency room. Patient is currently incarcerated and there is a hearing aid repair technician at the bedside. Patient states she has been feeling short of breath and feeling weak. She states this started about 2 days ago. She states that she was in court and afterwards they had to use a wheelchair to get her back into the vehicle as she was too weak to walk. She also reports feeling dizzy and having pounding in her chest. She reports a slight cough. She denied having a fever previously to her knowledge. However patient was febrile this morning with a temperature of 100.2. She also reports lower extremity edema that started in the middle of December. She reports nausea yesterd ay that was relieved with Zofran. Patient was found to be anemic on admission with a hemoglobin of 7.7. Repeat 7.1. Last hemoglobin was back in 2021 but was normal at 12.3. The patient denies a history of anemia. Unsure if this anemia is new or has been present for a while as her last blood work was not since 2021. She denies any blood in her stool or urine. She does report decreased urine output. Patient was also found to have acute kidney injury with a creatinine of 2.96. Back in 2021, patient's kidney function was within normal limits. Patient was also found to have elevated troponins and was started on IV heparin. She denied having any chest pain or pressure. Patient is a former cigarette smoker and has not smoked in 55 days since being in correction. She denies alcohol abuse many years ago but nothing recently. She denies drug use including marijuana. DIAGNOSTICS: - EKG reveals sinus mechanism with left bundle branch block. - Chest xray consolation of findings favor CHF over pneumonia. Correlate clinically. Underlying COPD. Loop recorder device seen. Bilateral conso lidation and small effusion with diffuse interstitial pattern.. - Laboratory data: WBC 6.2. Hemoglobin 7.1. Platelet count 300. Sodium 133. Potassium 4.9. BUN 56. Creatinine 2.96. AST 55. ALT 35. proBNP 25,100. Troponin 1.290. 1.760. 2.210. - Current home cardiac medications include Lipitor 20 mg at night. - Most recent echocardiogram obtained in February 2022 revealed ejection fraction 55 to 60%, mild MR, mild TR - Patient underwent dobutamine stress test in March 2023 at the office which was negative for ischemia 02/08/2024 Patient examined this morning at the bedside. Patient states her shortness of breath has improved today. She complains of mild chest discomfort when she feels short of breath. She states the chest pain is worse with deep inspiration. Her lower extremity edema has improved from yesterday. She has been transition to IV Lasix drip per nephrology. Echocardiogram completed revealing ejection fraction 20 to 25%, mild pulm hypertension, moderate to severe mitral regurgitation, mild aortic regurgitation, trace to mild tricuspid regurgitation and small pericardial effusion. 02/09/2024 Patient examined this morning at the bedside. Patient continues to report shortness of breath at the time of examination. She reports that she developed a cough also today. She reports chest discomfort that is worse with deep inspiration. She remains on a Lasix drip at 5 mg an hour. Creatinine 3.41. Hemoglobin 7.4. Blood pressure is stable. Telemetry reveals sinus mechanism. 02/10/2024 Patient examined this morning at the bedside. Patient continues to report shor tness of breath. She continues to have a cough. She denies any chest discomfort at the time of examination. She remains on a Lasix drip at 5 mg an hour. Creatinine today is 3.44. Hemoglobin 7.2. 02/11/2024 Patient examined this morning at the bedside. Patient reports that she slept well overnight. She currently denies any chest pain or pressure. She reports improvement in her shortness of breath and also with her cough. Renal function worsened today at 3.71. She remains on IV Lasix at 10 mg an hour. 02/11 Patient seen and examined. Patient still minutes to significant shortness breath mainly with exertion. She occasionally has some chest tightness however not clearly associated with exertion and more feels like she cannot take a deep breath in. Creatinine stable at 3.8. She is receiving 1 unit of packed red blood cell for hemoglobin 6.7. Remains on IV diuretics. 02/12 Patient is seen today in follow-up. She states she may feel a little bit better after blood transfusion but continues to feel tired, shortness of breath have some chest pain with exertion. Blood pressure 125/80, heart rate between 72 and 91, pulse ox 95% on room air. Repeat blood work reveals hemoglobin 7.4. BUN 83 creatinine 2.6. Discussed option of stress test in the next 1 to 2 days and patient is agreeable for this. 02/13 Patient complains of feeling tired, upset stomach. She has shortness of breath with minimal activity. She had an episode of chest pain last night but none now. Renal function is worsening with BUN of 87 creatinine 3.55. Sodium 135, potassium 4.6. 02/14 Lexiscan Cardiolite stress test came back abnormal with large area of fixed defect involving all segments of the myocardium suggestive of remote ischemia. Cannot exclude a tiny area of stress induced reversibility within the apex. Reduced wall motion activity with EF of only 21%. Results reviewed with patient and next option with cardiac catheterization discussed with the patient with understanding that patient does have abnormal renal function and would need to be cleared by nephrology. Dr. Berman will contact Dr. Lane regarding p ossible cardiac catheterization. Blood pressure 143/84, heart rate 93, pulse ox 95% on 2 L nasal cannula. Patient remains on IV Lasix drip at 10 mg/h. She has a negative fluid balance. She is on a fluid restriction of 1200 mL 02/15 Patient underwent cardiac catheterization today with Dr. Lane which revealed calcified coronary arteries. Severe triple-vessel disease. Right dominance. Mildly elevated LVEDP. She has been seen by CTS with tentative plan for CABG on Monday pending results of AFRICA. Patient will be scheduled tomorrow for AFRICA with Dr. Berman. Blood pressure 113/59, heart rate 96, pulse ox 93% on 2 L nasal cannula. Repeat blood work reveals BUN 85 creatinine 3.58. 02/17 Yesterday, patient underwent AFRICA which revealed aortic valve tricuspid and functioning normally. Mitral valve structurally normal with mild central secondary mitral regurgitation. Pulmonary vein flow has systolic dominance. Tricuspid valve appears to be normal with mild tricuspid regurgitation. Intra- atrial septum is intact with no evidence of PFO. Left atrial appendage free of clot. LV EF 35% with global hypokinesis. Patient is followed by cardiothoracic surgery and also nephrology. If patient is requiring dialysis, plan would be for patient to start dialysis prior to open heart surgery. Patient remains on Lasix drip per nephrology. Patient has a negative fluid balance of 1322. Repe at blood work reveals hemoglobin is 7.9. BUN 82 creatinine 3.39. Mild elevation in liver function test. 02/20/2024 Patient examined this morning at bedside. Patient currently denies chest pain or pressure. She denies shortness of breath. She remains on IV Lasix infusion. Kidney function remained stable. 02/21/2024 Patient examined this morning at the bedside. Patient currently denies chest pain or pressure. She denies shortness of breath. Patient was on an IV Lasix infusion this morning. She has since been transitioned to IV push Lasix 60 mg every 12 hours per nephrology. Chest x-ray this morning revealed CHF with ongoing interstitial pulmonary edema. Small left greater than right pleural effusion also persist. 02/22/2024 Patient examined this morning at the bedside. Patient currently denies chest pain or pressure. She denies shortness of breath. She remains on IV Lasix 60 mg every 12 hours IV push. Labs from this morning are currently pending. PHYSICAL EXAM: VITAL SIGNS: Reviewed. GENERAL: Well-developed in no acute distress. HEENT: Head is normocephalic. Pupils are equal, round. Sclerae anicteric. Mucous membranes of the mouth are moist. Neck supple. No JVD or thyromegaly LUNGS: Respirations even and unlabored. Lungs essentially clear to auscultation bilaterally. HEART: Regular rate and rhythm. S1 and S2 heard. ABDOMEN: Soft. Nondistended. Nontender. EXTREMITIES: Normal range of motion. No clubbing or cyanosis. Peripheral pulses intact. No lower extremity edema NEUROLOGIC: Awake and alert. Oriented x 3. ASSESSMENT: Febrile illness Shortness of breath Non-STEMI Triple-vessel coronary artery disease Acute heart failure with reduced EF, 20 to 25% New onset cardiomyopathy, ischemic Left bundle branch block Acute kidney injury, renal function was fairly normal in 2021 Anemia, acute anemia versus anemia of chronic disease due to renal failure, d uration of anemia/EDWINA unknown Moderate to severe mitral regurgitation on TTE, mild mitral regurgitation on AFRICA History of hypertension History of CVA x 2 Diabetes Hypothyroidism Former nicotine dependence Minimally elevated LFTs PLAN: Continue current cardiac medications Nephrology following. Continue IV Lasix 60 mg every 12 hours per nephrology Daily weights, accurate intake and output, and monitoring of kidney function CT surgery following. Plan for CABG when patient is medically optimized for surgical intervention. Patient tentatively scheduled for Monday, February 26, 2024 Further recommendations pending patient course Nurse practitioner note has been reviewed by physician. Signing provider agrees with the documented findings, assessment, and plan of care documented by BUSINESS MACHINE MECHANIC as a scribe. Objective - Vital Signs Vital signs: Vital Signs Temp 97.9 F 02/22/24 08:00 Pulse 76 02/22/24 11:20 Resp 16 02/22/24 08:00 BP 111/65 02/22/24 08:00 Pulse Ox 95 02/22/24 08:00 FiO2 Intake & Output 02/21/24 02/22/24 02/22/24 18:59 06:59 18:59 Intake Total 559.167 540 118 Output Total 800 1100 Balance -240.833 -560 118 Weight 75.4 kg 75.4 kg Intake: Intake, IV Titration 83.167 Amount Furosemide 100 mg In 83.167 Sodium Chloride 0.9% 90 ml @ 10 MG/HR 10 mls/hr IV .Q10H [facility] Rx#: [id number] Oral [id number] Output: Urine 800 1100 Other: Voiding Method Indwelling Catheter Indwelling Catheter - Labs CBC & Chem 7: 02/21/24 11:53 02/21/24 11:53 Labs: Abnormal Lab Results - Last 24 Hours (Table) 02/21/24 02/21/24 02/21/24 Range/Units 11:53 11:53 16:14 RBC 2.53 L (3.80-5.40) m/uL Hgb 8.2 L (11.4-16.0) gm/dL Hct 24.5 L (34.0-46.0) % Sodium 133 L (137-145) mmol/L BUN 84 H (7-17) mg/dL Creatinine 3.05 H (0.52-1.04) mg/dL Glucose 108 H (74-99) mg/dL POC Glucose (mg/dL) 294 H (70-110) mg/dL Calcium 8.1 L (8.4-10.2) mg/dL ALT 37 H (4-34) U/L Alkaline Phosphatase 181 H (38-126) U/L Total Protein 5.3 L (6.3-8.2) g/dL Albumin 2.2 L (3.5-5.0) g/dL 02/21/24 02/22/24 02/22/24 Range/Units 20:24 04:59 06:10 RBC (3.80-5.40) m/uL Hgb (11.4-16.0) gm/dL Hct (34.0-46.0) % Sodium (137-145) mmol/L BUN (7-17) mg/dL Creatinine (0.52-1.04) mg/dL Glucose (74-99) mg/dL POC Glucose (mg/dL) 187 H 359 H 269 H (70-110) mg/dL Calcium (8.4-10.2) mg/dL ALT (4-34) U/L Alkaline Phosphatase (38-126) U/L Total Protein (6.3-8.2) g/dL Albumin (3.5-5.0) g/dL
[2024-02-22 11:32] LABS: Glucose,Whole Blood 209 mg/dL (70-110)
--- NOTE | 2024-02-22 11:33 | P.PN ---
Subjective Progress Note Date: 02/22/24 Patient is a 58-year-old white female with past medical history significant for COPD, chronic ongoing tobacco dependence, CVA/TIA, diabetes mellitus, hyperlipidemia, hypertension, hypothyroidism, fibromyalgia, GERD, among other things. Patient presented [facility] on [facility]/2024 from [facility] with chief complaint of increased lower extremity swelling. She states that she first noted the swelling back in December,. It is progressively worsened, she states she has gained approximately 20 pounds over the last 2 months. Approximately 10 days ago she was awoken at night with substernal chest pain. Nonradiating. With associated shortness of breath and sweating. Lasted up to 15 minutes. She is also had a nonproductive cough. She was noted to be febrile this admission. She is empirically covered on antibiotics. On arrival to the emergency room, she was noted to have elevated troponins of 1.29, 1.76, and 2.2. EKG showed normal sinus rhythm with left bundle branch block, without any other acute isc hemic changes. No previous EKG for comparison. She was started on heparin infusion per protocol. She also was on a Nitropaste. Echocardiogram showed a severely impaired left ventricular ejection fraction of 20 to 25%, and moderate to severe mitral regurgitation. Today, she was started on a Lasix infusion at 5 mg/h. Heparin infusion was stopped as the patient is anemic. Patient denies any acute blood loss. No vaginal bleeding. No juan blood in stool. No melena. No nausea or vomiting or hematic emesis. Last colonoscopy was reportedly around 10 years ago. She is currently lying in bed, on 2 L/min nasal cannula. Chest x-ray on admission shows diffuse interstitial edema as well as bilateral consolidation and small effusions. Findings consistent with congestive heart failure. NT proBNP was elevated 25,000. Patient not making much urine despite Lasix infusion. Patient did have 1 episode of fever during her admission with a Tmax of 100.2 F. She was empirically she was empirically placed on Rocephin. Negative for influenza, RSV, COVID. Most recent BMP from today: Sodium 130, potassium 5.1, chloride 104, serum bicarb down to 17, BUN 63, creatinine worsening and 3.34, glucose 229. LFTs mildly elevated. Hepatitis panel nonreactive. Overall, hemodynamically stable. On 02/08/2024, seen the patient for a follow-up. The patient is currently on 3 L of oxygen by nasal cannula with a pulse ox of 94%. She should be able to wean down. She is on Lasix drip at 5 mg an hour and the patient is producing adequate amount of urine output. Her fluid balance is negative. As mentioned, the patient is post non-ST segment ovation myocardial infarction the patient is being seen by cardiology. The patient has severe cardiomyopathy with impaired left ventricular ejection fraction. Her blood work from today shows a BUN of 66 with a creatinine of 3.41 and this is consistent with an acute on chronic kidney injury. Sodium levels at 129, potassium is at 4.4 with a WBC count of 6.3 and a hemoglobin of 7.4. The patient is on IV Rocephin as an empiric antibiotic coverage. She is currently afebrile. The patient is being seen by cardiology. The patient will be kept on IV Lasix. Not a candidate for any invasive cardiac workup due to her acute on top of chronic kidney injury at this point in time. Her comorbidities are multiple. Unsure if she does have underlying coronary artery disease. Nevertheless, she has previous history of CVA, diabetes mellitus type 2, hypothyroidism and CHF. She was in [facility] for being arrested due to possession of amphetamines. Vasculitis workup was negative including a negative EDSON and a negative P and C ANCA. Hepatitis profile was also negative. On 02/10/2024, the patient is being seen for a follow-up. No new complaints. No significant shortness of breath at rest. Remains on Lasix drip. Producing adequate amount of urine output. Blood work from today was noticed that the patient has a white cell count of 6 with a hemoglobin of 7.2 and a PET scan at 360. BUN 69 with a creatinine of 3.4 and a sodium levels at 129. The patient is being seen by cardiology and nephrology addition. She remains on Lasix drip which will be increased up to 10 mg an hour. Not a candidate for further cardiac catheterization based on underlying renal dysfunction. 02/11/2024, the patient is being seen for a follow-up. No new complaints. Monitor for improvement in her condition. She remains on 2 L of oxygen by nasal cannula. Fluid balance is -90 cc over the past 24 hours. Suboptimal response to diuretics and the patient remains on Lasix at 10 mg an hour. BUN 71 with a creatinine of 3.7, slightly worse compared to yesterday. Sodium is at 131. The patient denies having any chest pain. No significant hypotension. Remains on aspirin. Remains on metoprolol 25 mg p.o. twice a day. Cardiology on the case. She has significant cardiomyopathy. She is post acute non-STEMI. Not a candidate for cardiac catheterization due to renal impairment. The patient is seen today February 12, 2024 in follow-up on the selective care unit. She is currently sitting up in bed. Awake and alert in no acute distress. She is maintaining O2 saturation in the 90s on 3 L nasal cannula. She is afebrile. Hemodynamically stable. Today's chest x-ray reviewed reveals diffuse bilateral infiltrates with small effusion or early congestive heart failure. Hemoglobin 6.7. 1 unit of packed blood cells have been ordered. Platelets 362. White cou nt 6.1. Sodium 131. Potassium 4.2. Bicarb 21. BUN 80. Creatinine 3.89. Glucose 286. She remains on. Antibiotics in the form of ceftriaxone. Remains on a Lasix drip at 5 mg an hour. Currently in a -178 mL balance. The patient is seen today February 13, 2024 in follow-up on the selective care unit. She is awake and alert in no acute distress. Sitting up in bed. Blood and urine cultures revealed no growth. White count 6.2. Hemoglobin 7.4. Platelets 01/05/1978. Sodium 133. Potassium 3.9. Bicarb 21. BUN 83. Creatinine 3.60. Glucose 154. She remains on a Lasix drip currently at 5 mg/h. She remains on a heparin drip. Receiving sodium bicarb tablets. Continued on bronchodilators. Continued on antibiotics in the form of ceftriaxone. She is currently in a negative balance. Voided 1 L today. The patient is seen today February 14, 2024 in follow-up on the selective care unit. She is currently sitting up in bed. Awake and alert in no acute distress. She is maintaining good O2 saturations in the 90s on 3 L/min per nasal cannula. She is afebrile. Hemodynamically stable. Follow-up chest x-ray continues to show diffuse bilateral infiltrate with small effusions. She is status post 1 unit of packed red blood cells this admission. Last hemoglobin 7.7. Sodium 135. Potassium 4.6. Bicarb 20. BUN 87. Creatinine 3.55. Glucose 358. She is continued on bronchodilators. Antibiotics in form of ceftriaxone. She remains on a Lasix drip at 10 mg/h. Receiving sodium bicarb tablets. Currently -688 mL balance. Nephrology is following. The patient is seen today February 15, 2024 in follow-up on the selective care unit. She is currently sitting up in bed awake and alert in no acute distress. She is maintaining O2 saturations in the mid 90s on 2 L/min per nasal cannula. She is afebrile. Hemodynamically stable. White count 6.8. Hemoglobin 8.6. Platelets 438. Sodium 135. Potassium 4.0. Bicarb 21. BUN 84. Creatinine 3.41. Glucose 171. She remains on a Lasix drip at 10 mg/h. Continued on a heparin drip. Plan to -1 L balance. Stress testing today reveals a large area of fixed defect involving all segments of the myocardium suggestive of remote ischemia. Could not exclude a tiny area of stress-induced reversibility within the apex. Reduced wall motion activity with ejection fraction of only 21%. The patient is seen today February 20, 2024 in follow-up on the selective care unit. She is currently sitting up in bed. Awake and alert in no acute distress. She is maintaining O2 saturations in the 90s on 3 L/min per nasal cannula. She remains on a Lasix drip at 10 mg/h. Currently net -1 L balance. White count 4.8. Hemoglobin 7.8. Platelets 309. Sodium 132. Potassium 3.7. Bicarb 28. BUN 84. Creatinine 3.31. Glucose 240. She remains on bronchodilators. Heparin for DVT prophylaxis. She has been worked up for possible coronary artery bypass surgery once she recovers from her acute illness. The patient is seen today February 21, 2024 in follow-up on the selective care unit. She is awake and alert in no acute distress. Maintaining good O2 saturations in the 90s on 2 L/min per nasal cannula. She is continued on Lasix drip at 10 mg/h. This x-ray continues to show interstitial pulmonary edema with small left greater than right pleural effusions. She is status post 1 unit of packed red blood cells this admission. Current hemoglobin 8.2. Platelets 301. White count 5.5. Sodium 133. Potassium 3.9. Bicarb 30. BUN 84. Creatinine 3.05. Glucose 108. Remains on bronchodilators. Heparin for DVT prophylaxis. She is currently in a +159 ml balance. The patient is seen today February 22, 2024 in follow-up on the selective care unit. She is resting comfortably in bed. Awake and alert in no acute distress. Denies any chest pain. No worsening shortness of breath, cough or congestion. Maintaining good O2 saturations in the mid 90s on 2 L/min per nasal cannula. She is afebrile. Hemodynamically stable. She is maintained on DuoNeb inhalations, Pulmicort and Perforomist inhalations, Robitussin as needed. Heparin for DVT prophylaxis. She is continued on diuretics. Currently in a - 800 mL balance. Glucose 269. Objective - Vital Signs Vital signs: Vital Signs Temp 97.9 F 02/22/24 08:00 Pulse 76 02/22/24 11:20 Resp 16 02/22/24 08:00 BP 111/65 02/22/24 08:00 Pulse Ox 95 02/22/24 08:00 FiO2 Intake & Output 02/21/24 02/22/24 02/22/24 18:59 06:59 18:59 Intake Total 559.167 540 118 Output Total 800 1100 Balance -240.833 -560 118 Weight 75.4 kg 75.4 kg Intake: Intake, IV Titration 83.167 Amount Furosemide 100 mg In 83.167 Sodium Chloride 0.9% 90 ml @ 10 MG/HR 10 mls/hr IV .Q10H [facility] Rx#: [id number] Oral [id number] Output: Urine 800 1100 Other: Voiding Method Indwelling Catheter Indwelling Catheter - Exam GENERAL EXAM: Alert, 58-year-old female, resting in bed, on 2 L nasal cannula, in no apparent distress. HEAD: Normocephalic and atraumatic EYES: Normal reaction of pupils, equal size. NOSE: Clear with pink turbinates. THROAT: No erythema or exudates. NECK: No masses, no JVD. CHEST: No chest wall deformity. LUNGS: Equal air entry with bibasilar crackles and mild and expiratory wheezes heard bilaterally. CVS: S1 and S2 normal with no audible murmur, regular rhythm. No extra heart sounds ABDOMEN: No hepatosplenomegaly, active bowel sounds, no guarding or rigidity. SPINE: No scoliosis or deformity SKIN: No rashes CENTRAL NERVOUS SYSTEM: No focal deficits, tone is normal in all 4 extremities. EXTREMITIES: There is lower extremity pitting edema, 1-2+ bilaterally. No clubb ing, or cyanosis. Peripheral pulses are intact. - Labs CBC & Chem 7: 02/21/24 11:53 02/21/24 11:53 Labs: Abnormal Lab Results - Last 24 Hours (Table) 02/21/24 02/21/24 02/21/24 Range/Units 11:53 11:53 16:14 RBC 2.53 L (3.80-5.40) m/uL Hgb 8.2 L (11.4-16.0) gm/dL Hct 24.5 L (34.0-46.0) % Sodium 133 L (137-145) mmol/L BUN 84 H (7-17) mg/dL Creatinine 3.05 H (0.52-1.04) mg/dL Glucose 108 H (74-99) mg/dL POC Glucose (mg/dL) 294 H (70-110) mg/dL Calcium 8.1 L (8.4-10.2) mg/dL ALT 37 H (4-34) U/L Alkaline Phosphatase 181 H (38-126) U/L Total Protein 5.3 L (6.3-8.2) g/dL Albumin 2.2 L (3.5-5.0) g/dL 02/21/24 02/22/24 02/22/24 Range/Units 20:24 04:59 06:10 RBC (3.80-5.40) m/uL Hgb (11.4-16.0) gm/dL Hct (34.0-46.0) % Sodium (137-145) mmol/L BUN (7-17) mg/dL Creatinine (0.52-1.04) mg/dL Glucose (74-99) mg/dL POC Glucose (mg/dL) 187 H 359 H 269 H (70-110) mg/dL Calcium (8.4-10.2) mg/dL ALT (4-34) U/L Alkaline Phosphatase (38-126) U/L Total Protein (6.3-8.2) g/dL Albumin (3.5-5.0) g/dL Assessment and Plan Assessment: Acute non-ST elevation TN. Stress testing today 02/15/2024 reveals a large area of fixed defect involving all segments of the myocardium suggestive of remote ischemia. Cannot exclude a tiny area of stress-induced reversibility within the apex. Reduced wall motion activity with ejection fraction of only 21%. Cardiac catheterization from 02/16/2024 revealed calcified coronary arteries. Severe triple-vessel disease. Being evaluated for possible revascularization surgery Acute hypoxemic respiratory failure, currently on 3 L/min nasal cannula, secondary to exacerbation of systolic congestive heart failure and above, Chest x-ray on admission shows diffuse interstitial edema as well as bilateral consolidation and small effusions. Findings consistent with congestive heart failure, however, superimposed community-acquired bibasilar pneumonia is not excluded. Ischemic cardiomyopathy with an estimated left ventricular ejection fraction severely impaired at 20 to 25% as well as moderate to severe mitral valve regurgitation, currently on Lasix infusion at 10 mg/h, diuresing well. Severe mitral valve regurgitation Acute febrile illness, recovered Normocytic normochromic anemia, current hemoglobin 8.2, received 1 unit of packed red blood cell Acute kidney injury, likely cardiorenal, current creatinine 3.31 Metabolic non-anion gap acidosis, secondary to above Chronic obstructive pulmonary disease, stable Diabetes mellitus type 1 History of hyperlipidemia History of hypertension History of CVA/TIA History of hypothyroidism History of fibromyalgia History of GERD Mildly elevated LFTs, hepatitis panel nonreactive Former tobacco smoker, 1/2 pack/day or approximately 15-year pack history Plan: The patient was seen and evaluated Labs and medications reviewed Stable on 2 L nasal Remains on diuretics We will continue to follow I have personally seen and examined the patient, performed the documentation and the assessment and plan as written. Number of minutes spent on the visit: 10.
--- NOTE | 2024-02-22 11:35 | P.PN ---
Subjective This is a pleasant 58 years old female with past medical history of multiple medical problems as below She has been incarcerated for 52 days, there is officer at bedside. Patient presents because of shortness of breath and exertional dyspnea has for the last 2 days, she states she hears herself wheezing when she lies down. Currently she is breathing quietly. She is complaining for mild chest pain on the left side, nonradiating nonspecific, feels much better now and very mild. She has occasional cough but no phlegm. Also she is complaining from upset stomach but no diarrhea or vomiting She complains from decreased urination but no dysuria or urgency. She has mild headache feels generally weak but no dizziness or blurry vision. She used to smoke half pack per day before she got incarcerated No alcohol or illicit drugs. She follow-up with her ancillary specialist Dr. Donal Herrera and ward assistant Dr. Babb who examined her about 2 months ago where she has some mild ulcer In the bottom of her right total This morning patient has low-grade fever 100.2 She is also mildly tachypneic around 22 She is saturating 93% on 2 L oxygen via nasal cannula Labs reviewed showing hemoglobin of 7.7, rest of CBC is unremarkable BMP liver enzymes not elevated. INR 0.9. Lactic 0.9 proBNP is elevated 25 100 EKG showing sinus rhythm at [address]-T changes, no left bundle branch block 02/17/2024 --Patient is seen and evaluated in room at bedside; remains on Lasix drip, remains in negative fluid balance - patient underwent cardiac catheterization which revealed severe triple-vessel coronary artery disease and now she is being evaluated for possible myocardial revascularization. Patient remains on oxygen at 2 L/min and her O2 sats is 97%, her PFT showed severe obstructive lung disease, however not severe enough to not consider myocardial revascularization if the patient is cleared by other consultants including nephrology and cardiology. Patient has been a smoker over the years, she had at least a [id number] smoking history. Remind you patient had a PFT with chest x-ray still showing evidence of pulmonary edema which will definitely compromise her PFT will likely reflect more restriction than obstructive lung disease. WBC count today is 4.9 hemoglobin 7.7 electrolytes are normal BUN is 85 creatinine 3.59 02/18/2024 Patient is seen and evaluated in room at bedside; sitting up in bed; ports stable breathing - patient underwent AFRICA which revealed aortic valve tricuspid and functioning normally. Mitral valve structurally normal with mild central secondary mitral regurgitation. Pulmonary vein flow has systolic dominance. Tricuspid valve appears to be normal with mild tricuspid regurgitation. Intra-atrial septum is intact with no evidence of PFO. Left atrial appendage free of clot. LV EF 35% with global hypokinesis. -- Patient is followed by cardiothoracic surgery and also nephrology. Nephrology not recommending any indication or need for hemodialysis. Patient remains on Lasix drip per nephrology. Patient has a negative fluid balance of 1322. Repeat blood work reveals hemoglobin is 7.9. BUN 82 creatinine 3.39. Mild elevation in liver function test. -Plan for surgery once clinically optimized 02/19/2024 Patient looks more awake than admission, sitting up in bed. Residential officers at bedside Mentation at baseline. She talks freely. Denies chest pain or dyspnea at rest On presentation patient was found acute CHF and non-STEMI, workup showing triple-vessel coronary artery disease and patient will require bypass procedure with cardiothoracic surgery team on the case once medically optimized. Patient currently with fluid overload on Lasix drip, on admission it was 5 mg/h, currently increased to 10 mg/h. She is making around 1 L of urine output by yesterday. Saldaña catheter in place. She is also on aspirin 81 mg Hemoglobin 8.5, creatinine 3.3 compared to 2.7 on admission with baseline 0.9- 1.2. Liver enzymes mildly elevated since admission. 02/20/2024 Patient came from assisted for an NSTEMI. Workup showing severe triple-vessel coronary artery disease currently being evaluated by cardiothoracic surgery team for possible cardiac bypass procedure. However she needs optimization and she is currently kept on IV Lasix 10 mg, creatinine went up 3.3 today. Stage Settings Painter recommended to continue with Lasix drip still tomorrow Patient diabetic, she is on Levemir 8 units twice daily, she is developing episodes of hypoglycemia we will going to lower the dose to 6 units twice daily She is also on aspirin 325 mg 02/21/2024 Patient continues to improve today, she is more energetic, less dyspneic Lasix drip switched to IV Lasix 60 mg twice daily Cardiothoracic surgery team with plan for valve replacement surgery on this coming Sunday 02/25 Sugars better controlled with no hyperglycemia on Levemir 6 units twice daily 02/22/2024 Patient breathing is stable, denies chest pain No new complaint Will go check breathing tomorrow Plan for cardiac surgery on Monday Objective - Vital Signs Vital signs: Vital Signs Temp 97.9 F 02/22/24 08:00 Pulse 80 02/22/24 11:32 Resp 16 02/22/24 08:00 BP 111/65 02/22/24 08:00 Pulse Ox 95 02/22/24 08:00 FiO2 Intake & Output 02/21/24 02/22/24 02/22/24 18:59 06:59 18:59 Intake Total 559.167 540 118 Output Total 800 1100 Balance -240.833 -560 118 Weight 75.4 kg 75.4 kg Intake: Intake, IV Titration 83.167 Amount Furosemide 100 mg In 83.167 Sodium Chloride 0.9% 90 ml @ 10 MG/HR 10 mls/hr IV .Q10H [facility] Rx#: [id number] Oral [id number] Output: Urine 800 1100 Other: Voiding Method Indwelling Catheter Indwelling Catheter - Exam -GENERAL: The patient is alert and oriented x3, not in any acute distress. Well developed, well nourished. Generally weak and lethargic HEENT: Pupils are round and equally reacting to light. EOMI. No scleral icterus. No conjunctival pallor. Normocephalic, atraumatic. No pharyngeal erythema. No thyromegaly. CARDIOVASCULAR: S1 and S2 present. No murmurs, rubs, or gallops. -PULMONARY: Chest is clear to auscultation, no wheezing , no crackles. Tachypnea -ABDOMEN: Soft, nontender, nondistended, normoactive bowel sounds. No palpable organomegaly. Saldaña catheter in place MUSCULOSKELETAL: No joint swelling or deformity. -EXTREMITIES: No cyanosis, clubbing, 1+ bilateral pitting leg edema. NEUROLOGICAL: Gross neurological examination did not reveal any focal deficits. SKIN: No rashes. no petechiae. - Labs CBC & Chem 7: 02/21/24 11:53 02/21/24 11:53 Labs: Abnormal Lab Results - Last 24 Hours (Table) 02/21/24 02/21/24 02/21/24 Range/Units 11:53 11:53 16:14 RBC 2.53 L (3.80-5.40) m/uL Hgb 8.2 L (11.4-16.0) gm/dL Hct 24.5 L (34.0-46.0) % Sodium 133 L (137-145) mmol/L BUN 84 H (7-17) mg/dL Creatinine 3.05 H (0.52-1.04) mg/dL Glucose 108 H (74-99) mg/dL POC Glucose (mg/dL) 294 H (70-110) mg/dL Calcium 8.1 L (8.4-10.2) mg/dL ALT 37 H (4-34) U/L Alkaline Phosphatase 181 H (38-126) U/L Total Protein 5.3 L (6.3-8.2) g/dL Albumin 2.2 L (3.5-5.0) g/dL 02/21/24 02/22/24 02/22/24 Range/Units 20:24 04:59 06:10 RBC (3.80-5.40) m/uL Hgb (11.4-16.0) gm/dL Hct (34.0-46.0) % Sodium (137-145) mmol/L BUN (7-17) mg/dL Creatinine (0.52-1.04) mg/dL Glucose (74-99) mg/dL POC Glucose (mg/dL) 187 H 359 H 269 H (70-110) mg/dL Calcium (8.4-10.2) mg/dL ALT (4-34) U/L Alkaline Phosphatase (38-126) U/L Total Protein (6.3-8.2) g/dL Albumin (3.5-5.0) g/dL 02/22/24 Range/Units 11:31 RBC (3.80-5.40) m/uL Hgb (11.4-16.0) gm/dL Hct (34.0-46.0) % Sodium (137-145) mmol/L BUN (7-17) mg/dL Creatinine (0.52-1.04) mg/dL Glucose (74-99) mg/dL POC Glucose (mg/dL) 209 H (70-110) mg/dL Calcium (8.4-10.2) mg/dL ALT (4-34) U/L Alkaline Phosphatase (38-126) U/L Total Protein (6.3-8.2) g/dL Albumin (3.5-5.0) g/dL Assessment and Plan Assessment: Acute systolic CHF exacerbation, ejection fraction: 20 to 25% non-STEMI, ekg New left bundle branch block, secondary to triple-vessel coronary artery disease requiring CABG Mild hypoxic respiratory failure, improved Acute kidney injury on chronic kidney disease, nonoliguric Acute on chronic anemia of chronic disease Acute urinary tract infection, urine culture showing skin or genital kwesi. 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 Labs and medication were reviewed.. Continue same treatment. Continue with symptomatic treatment. Resume home medication. Monitor labs and vitals. DVT and GI prophylaxis. Further recommendations as per clinical course of the patient DVT prophylaxis: heparin GI Prophylaxis: Pepcid Prognosis is guarded given her multiple disease of the heart kidneys
--- NOTE | 2024-02-22 11:36 | XR ---
EXAMINATION TYPE: XR chest 1V portable DATE OF EXAM: 02/22/2024 6:59 AM CLINICAL INDICATION:Female, 58 years old with history of heart failure; [facility] COMPARISON: Chest radiographs from 02/21/2024 TECHNIQUE: XR chest 1V portable Frontal view of the chest. FINDINGS: Lungs/Pleura: There is no evidence of pleural effusion, focal consolidation, or pneumothorax. Pulmonary vascularity: Pulmonary vascular congestion. Heart/mediastinum: Cardiomediastinal silhouette is enlarged and stable. A loop recorder projects over the left thorax over the heart. Musculoskeletal: No acute osseous pathology. IMPRESSION: Cardiomegaly and mild pulmonary vascular congestion. Correlate with BNP for congestive heart failure.
[2024-02-22 11:39] LABS: Basophils % (A) 1 %; Eosinophils # (A) 0.1 k/uL (0-0.7); Eosinophils % (A) 3 %; HCT 24.7 % (34.0-46.0); HGB 7.5 gm/dL (11.4-16.0); Hypochromasia Moderate; Lymphocytes # (A) 1.1 k/uL (1.0-4.8); Lymphocytes % (A) 22 %; MCH 29.5 pg (25.0-35.0); MCHC 30.5 g/dL (31.0-37.0); MCV 96.8 fL (80.0-100.0); Monocytes # (A) 0.4 k/uL (0-1.0); Monocytes % (A) 8 %; Neutrophils # (A) 3.2 k/uL (1.3-7.7); Neutrophils % (A) 65 %; Platelet Count 305 k/uL (150-450); Poikilocytosis Slight; RBC 2.55 m/uL (3.80-5.40); RDW 14.2 % (11.5-15.5); WBC 4.9 k/uL (3.8-10.6)
[2024-02-22 12:01] LABS: African American GFR (CKD) 17 (>60 ml/min/1.73 sqM); Anion Gap 3 mmol/L; Blood Urea Nitrogen 79 mg/dL (7-17); Calcium 8.1 mg/dL (8.4-10.2); Carbon Dioxide 33 mmol/L (22-30); Chloride 98 mmol/L (98-107); Glucose 186 mg/dL (74-99); Magnesium 1.8 mg/dL (1.6-2.3); Non-African American GFR(CKD) 15 (>60 ml/min/1.73 sqM); Potassium 3.7 mmol/L (3.5-5.1); Sodium 134 mmol/L (137-145)
[2024-02-22 16:17] LABS: Glucose,Whole Blood 76 mg/dL (70-110)
[2024-02-22 19:51] LABS: Glucose,Whole Blood 175 mg/dL (70-110)
[2024-02-23 03:51] LABS: Glucose,Whole Blood 442 mg/dL (70-110)
[2024-02-23 04:25] LABS: HCT 25.6 % (34.0-46.0); HGB 7.7 gm/dL (11.4-16.0); Hypochromasia Marked; MCH 29.6 pg (25.0-35.0); MCHC 30.1 g/dL (31.0-37.0); MCV 98.5 fL (80.0-100.0); Mean Platelet Volume 7.8; Platelet Count 294 k/uL (150-450); RDW 14.1 % (11.5-15.5); WBC 4.8 k/uL (3.8-10.6)
[2024-02-23 04:34] LABS: African American GFR (CKD) 17 (>60 ml/min/1.73 sqM); Anion Gap 4 mmol/L; Blood Urea Nitrogen 82 mg/dL (7-17); Calcium 7.8 mg/dL (8.4-10.2); Carbon Dioxide 30 mmol/L (22-30); Chloride 97 mmol/L (98-107); Glucose 363 mg/dL (74-99); Magnesium 1.9 mg/dL (1.6-2.3); Non-African American GFR(CKD) 14 (>60 ml/min/1.73 sqM); Potassium 4.3 mmol/L (3.5-5.1); Sodium 131 mmol/L (137-145)
[2024-02-23 06:25] LABS: Glucose,Whole Blood 416 mg/dL (70-110)
--- NOTE | 2024-02-23 07:34 | P.PN ---
Subjective Progress Note Date: 02/23/24 Principal diagnosis: Triple-vessel coronary artery disease, non-STEMI this admission, acute heart failure with reduced ejection fraction, new onset ischemic cardiomyopathy, moderate to severe mitral regurgitation, acute on chronic kidney disease, acute anemia. History of hypertension, hyperlipidemia, hypothyroid, diabetes mellitus, CVA, hepatitis as a child, CKD stage IV, previous tobacco dependence with recent cessation, severe COPD, previous methamphetamine use with recent cessation, family history of coronary artery disease The patient was seen and examined this morning sitting up in bed on the cardiac stepdown unit in no acute distress, morals squad police officer present. Patient currently denies any chest pain or increased shortness of breath. States she feels much better than when she came in although still requiring oxygen. IV Lasix switched to intermittent instead of continuous drip. Will need to reevaluate lung function, plan for arterial blood gas and repeat bedside spirometry on Monday per recommendations from a pulmonology. Currently our plan is for off-pump CABG on Monday with Dr. Gillette. No other new concerns at this time. Objective - Vital Signs Vital signs: Vital Signs Temp 98.6 F 02/22/24 20:00 Pulse 76 02/23/24 04:00 Resp 16 02/23/24 04:00 BP 110/71 02/23/24 04:00 Pulse Ox 93 L 02/23/24 04:00 FiO2 Intake & Output 02/22/24 02/23/24 02/23/24 18:59 06:59 18:59 Intake Total 658 540 Output Total 1271 418 9813 Balance -417 140 -1050 Weight 75.4 kg 76.5 kg Intake: Oral 658 540 Output: Urine 5303 209 2906 Other: Voiding Method Indwelling Catheter Indwelling Catheter - Exam CONSTITUTIONAL: Appears comfortable, cooperative, no acute distress RESPIRATORY: Lungs sounds diminished bilaterally. Respirations even, nonlabored. Currently on 2 L nasal cannula with oxygen saturation 93%. Strong cough. CARDIOVASCULAR: S1, S2 present. Regular rate and rhythm, sinus rhythm on telemetry. Palpable peripheral pulses bilaterally. No edema present. No calf pain or tenderness noted GASTROINTESTINAL: Abdomen soft, nontender, nondistended. Active bowel sounds present 4 quadrants. Tolerating diet. Positive bowel movement 02/19 GENITOURINARY: Saldaña present draining clear, yellow urine. Output overnight 1475 mL in the last 24 hours INTEGUMENTARY: Skin is warm and dry NEUROLOGIC: Cranial nerves II through XII intact MUSKULOSKELETAL: Able to move all extremities, strength equal bilaterally PSYCHIATRIC: Alert and oriented to person place and time, appropriate affect, intact judgment and insight - Allied health notes Allied health notes reviewed: nursing - Labs CBC & Chem 7: 02/23/24 03:49 02/23/24 03:49 Labs: Abnormal Lab Results - Last 24 Hours (Table) 02/22/24 02/22/24 02/22/24 Range/Units 10:55 10:55 11:31 RBC 2.55 L (3.80-5.40) m/uL Hgb 7.5 L (11.4-16.0) gm/dL Hct 24.7 L (34.0-46.0) % MCHC 30.5 L (31.0-37.0) g/dL Sodium 134 L (137-145) mmol/L Chloride (98-107) mmol/L Carbon Dioxide 33 H (22-30) mmol/L BUN 79 H (7-17) mg/dL Creatinine 3.20 H (0.52-1.04) mg/dL Glucose 186 H (74-99) mg/dL POC Glucose (mg/dL) 209 H (70-110) mg/dL Calcium 8.1 L (8.4-10.2) mg/dL 02/22/24 02/23/24 02/23/24 Range/Units 19:49 03:48 03:49 RBC 2.60 L (3.80-5.40) m/uL Hgb 7.7 L (11.4-16.0) gm/dL Hct 25.6 L (34.0-46.0) % MCHC 30.1 L (31.0-37.0) g/dL Sodium (137-145) mmol/L Chloride (98-107) mmol/L Carbon Dioxide (22-30) mmol/L BUN (7-17) mg/dL Creatinine (0.52-1.04) mg/dL Glucose (74-99) mg/dL POC Glucose (mg/dL) 175 H 442 H (70-110) mg/dL Calcium (8.4-10.2) mg/dL 02/23/24 02/23/24 Range/Units 03:49 06:24 RBC (3.80-5.40) m/uL Hgb (11.4-16.0) gm/dL Hct (34.0-46.0) % MCHC (31.0-37.0) g/dL Sodium 131 L (137-145) mmol/L Chloride 97 L (98-107) mmol/L Carbon Dioxide (22-30) mmol/L BUN 82 H (7-17) mg/dL Creatinine 3.32 H (0.52-1.04) mg/dL Glucose 363 H (74-99) mg/dL POC Glucose (mg/dL) 416 H (70-110) mg/dL Calcium 7.8 L (8.4-10.2) mg/dL - Imaging and Cardiology Chest x-ray: image reviewed Assessment and Plan Assessment: Triple-vessel coronary artery disease, non-STEMI this admission Acute heart failure with reduced ejection fraction, 20-25%, 35% on [place] New onset ischemic cardiomyopathy Moderate to severe mitral regurgitation on transthoracic echocardiogram, mild mitral regurgitation on [place] Acute on chronic kidney disease Acute anemia Hypertension Hyperlipidemia, treated, cholesterol 150, LDL 72.8 Hypothyroid, TSH 1.73 Diabetes mellitus, hemoglobin A1c 7.1% CVA Hepatitis as a child CKD Previous tobacco dependence with recent cessation Severe COPD, preoperative FEV1 27% of predicted Previous methamphetamine use with recent cessation Family history of coronary artery disease with sister having multiple stents Plan: Continue to maximize medical therapy with aspirin, statin, beta-alex, IV Lasix Continue preoperative teaching Increase activity as tolerated, ambulate minimum 3 times daily, discussed with RN Encourage incentive spirometry use Aggressive risk factor management Will repeat bedside spirometry and room air ABG on Monday per pulmonology r ecommendations Tentatively we will plan for off-pump coronary artery bypass surgery next Monday, February 26, [address] Gillette Management of other comorbidities per internal medicine, cardiology, pulmo nology, nephrology More recommendations to follow
--- NOTE | 2024-02-23 08:25 | XR ---
EXAMINATION TYPE: XR chest 1V portable DATE OF EXAM: 02/23/2024 7:02 AM CLINICAL INDICATION:Female, 58 years old with history of heart failure; [facility] COMPARISON: Chest radiographs from TECHNIQUE: XR chest 1V portable Frontal view of the chest. FINDINGS: Lungs/Pleura: There is no evidence of pleural effusion, focal consolidation, or pneumothorax. Pulmonary vascularity: Pulmonary vascular congestion. Heart/mediastinum: Cardiomediastinal silhouette is enlarged and stable. A loop recorder projects over the left thorax over the heart. Musculoskeletal: No acute osseous pathology. IMPRESSION: Similar multifocal airspace opacities.
--- NOTE | 2024-02-23 11:07 | P.PN ---
Subjective patient is seen for follow-up for acute kidney injury. Currently being diuresed. status post Lasix drip. serum creatinine decreased to 3.0 mg/dL and noted to be at 3.3 today.. urine output at 1.9 L for 24 hours. complaining of shortness of breath today. Lasix was decreased yesterday. Officer is present at bedside. Objective - Vital Signs Vital signs: Vital Signs Temp 97.8 F 02/23/24 08:00 Pulse 85 02/23/24 08:00 Resp 16 02/23/24 08:00 BP 120/76 02/23/24 08:00 Pulse Ox 93 L 02/23/24 08:00 FiO2 Intake & Output 02/22/24 02/23/24 02/23/24 18:59 06:59 18:59 Intake Total 658 540 Output Total 1575 062 0668 Balance -417 140 -1050 Weight 75.4 kg 76.5 kg Intake: Oral 658 540 Output: Urine 7706 873 0236 Other: Voiding Method Indwelling Catheter Indwelling Catheter Indwelling Catheter # Bowel Movements 1 - Exam patient is awake, comfortable, no acute distress Alert oriented 3 Examination of the heart S1 and S2 Examination of the lungs bilateral breath sounds are heard, occasional wheezing heard Abdomen is soft nontender Examination of lower extremities shows 1+ edema. SHOPPING INVESTIGATOR exam grossly intact - Labs CBC & Chem 7: 02/23/24 03:49 02/23/24 03:49 Labs: Abnormal Lab Results - Last 24 Hours (Table) 02/22/24 02/22/24 02/22/24 Range/Units 10:55 10:55 11:31 RBC 2.55 L (3.80-5.40) m/uL Hgb 7.5 L (11.4-16.0) gm/dL Hct 24.7 L (34.0-46.0) % MCHC 30.5 L (31.0-37.0) g/dL Sodium 134 L (137-145) mmol/L Chloride (98-107) mmol/L Carbon Dioxide 33 H (22-30) mmol/L BUN 79 H (7-17) mg/dL Creatinine 3.20 H (0.52-1.04) mg/dL Glucose 186 H (74-99) mg/dL POC Glucose (mg/dL) 209 H (70-110) mg/dL Calcium 8.1 L (8.4-10.2) mg/dL 02/22/24 02/23/24 02/23/24 Range/Units 19:49 03:48 03:49 RBC 2.60 L (3.80-5.40) m/uL Hgb 7.7 L (11.4-16.0) gm/dL Hct 25.6 L (34.0-46.0) % MCHC 30.1 L (31.0-37.0) g/dL Sodium (137-145) mmol/L Chloride (98-107) mmol/L Carbon Dioxide (22-30) mmol/L BUN (7-17) mg/dL Creatinine (0.52-1.04) mg/dL Glucose (74-99) mg/dL POC Glucose (mg/dL) 175 H 442 H (70-110) mg/dL Calcium (8.4-10.2) mg/dL 02/23/24 02/23/24 Range/Units 03:49 06:24 RBC (3.80-5.40) m/uL Hgb (11.4-16.0) gm/dL Hct (34.0-46.0) % MCHC (31.0-37.0) g/dL Sodium 131 L (137-145) mmol/L Chloride 97 L (98-107) mmol/L Carbon Dioxide (22-30) mmol/L BUN 82 H (7-17) mg/dL Creatinine 3.32 H (0.52-1.04) mg/dL Glucose 363 H (74-99) mg/dL POC Glucose (mg/dL) 416 H (70-110) mg/dL Calcium 7.8 L (8.4-10.2) mg/dL Assessment and Plan Assessment: 1. Acute kidney injury secondary to ATN secondary to cardiorenal syndrome. Creatinine decreased to 3.0, increased to 3.3 today Creatinine as low as 0.98 dated March 01, 2022. No hydronephrosis noted on kidney ultrasound. Serologies negative. good urine output. status post Lasix drip 2. Acute on chronic systolic CHF with ejection fraction of 20 to 25% with moderate to severe mitral regurgitation and mild pulmonary hypertension. 3. Volume overload. Improving with diuresis. 4. Anemia. Iron deficiency noted. Status post IV iron. On Aranesp. GI following. Status post blood transfusion this admission. Also received IV DDAVP. 5. Metabolic acidosis secondary to acute kidney injury. On oral bicarb. Stable. 6. Hypervolemic hyponatremia. Also component of hypertonicity from hyperglycemia. Better. 7. Urinary retention status post Saldaña catheter placement. On Flomax. Plan: increase IV Lasix dose Repeat labs in a.m.
--- NOTE | 2024-02-23 11:45 | P.PN ---
Progress Note - Text Progress Note Date: 02/23/24 HPI: This lady has severe triple-vessel CAD and non-STEMI, heart failure which has improved. She also has history of smoking and COPD chronic kidney disease and moderate mitral regurgitation. She is making progress slowly. She is going to probably have aortocoronary bypass surgery on Monday if she does well on her pulmonary function tests and some blood gases etc. No chest pain vitals are stable no JVD S1-S2 heard normally short systolic murmur noted lungs reveal improved air entry abdomen is soft no lower extremity edema Central nervous system is normal. Probable surgery on Monday prognosis remains guarded. PHYSICIAL EXAM:. IMPRESSION: 1.. 2.. 3.. 4.. 5.. RECOMMENDATIONS:.
[2024-02-23 11:51] LABS: Glucose,Whole Blood 164 mg/dL (70-110)
--- NOTE | 2024-02-23 12:04 | P.PN ---
Subjective Progress Note Date: 02/23/24 Principal diagnosis: Coronary artery disease, CHF. The patient is seen today February 12, 2024 in follow-up on the selective care unit. She is currently sitting up in bed. Awake and alert in no acute distress. She is maintaining O2 saturation in the 90s on 3 L nasal cannula. She is afebrile. Hemodynamically stable. Today's chest x-ray reviewed reveals diffuse bilateral infiltrates with small effusion or early congestive heart failure. Hemoglobin 6.7. 1 unit of packed blood cells have been ordered. Platelets 362. White count 6.1. Sodium 131. Potassium 4.2. Bicarb 21. BUN 80. Creatinine 3.89. Glucose 286. She remains on. Antibiotics in the form of ceftriaxone. Remains on a Lasix drip at 5 mg an hour. Currently in a -178 mL balance. The patient is seen today February 13, 2024 in follow-up on the selective care unit. She is awake and alert in no acute distress. Sitting up in bed. Blood and urine cultures revealed no growth. White count 6.2. Hemoglobin 7.4. Platelets 01/05/1978. Sodium 133. Potassium 3.9. Bicarb 21. BUN 83. Creatinine 3.60. Glucose 154. She remains on a Lasix drip currently at 5 mg/h. She remains on a heparin drip. Receiving sodium bicarb tablets. Continued on bronchodilators. Continued on antibiotics in the form of ceftriaxone. She is currently in a negative balance. Voided 1 L today. The patient is seen today February 14, 2024 in follow-up on the selective care unit. She is currently sitting up in bed. Awake and alert in no acute distress. She is maintaining good O2 saturations in the 90s on 3 L/min per nasal cannula. She is afebrile. Hemodynamically stable. Follow-up chest x-ray continues to show diffuse bilateral infiltrate with small effusions. She is status post 1 unit of packed red blood cells this admission. Last hemoglobin 7.7. Sodium 135. Potassium 4.6. Bicarb 20. BUN 87. Creatinine 3.55. Glucose 358. She is continued on bronchodilators. Antibiotics in form of ceftriaxone. She remains on a Lasix drip at 10 mg/h. Receiving sodium bicarb tablets. Currently -688 mL balance. Nephrology is following. The patient is seen today February 15, 2024 in follow-up on the selective care unit. She is currently sitting up in bed awake and alert in no acute distress. She is maintaining O2 saturations in the mid 90s on 2 L/min per nasal cannula. She is afebrile. Hemodynamically stable. White count 6.8. Hemoglobin 8.6. Platelets 438. Sodium 135. Potassium 4.0. Bicarb 21. BUN 84. Creatinine 3.41. Glucose 171. She remains on a Lasix drip at 10 mg/h. Continued on a heparin drip. Plan to -1 L balance. Stress testing today reveals a large area of fixed defect involving all segments of the myocardium suggestive of remote ischemia. Could not exclude a tiny area of stress-induced reversibility within the apex. Reduced wall motion activity with ejection fraction of only 21%. Patient was seen and examined today on 02/16/2024 patient is feeling better today, continues to diurese with a Lasix drip, remains in negative fluid balance, patient underwent cardiac catheterization today and she was found to have severe triple-vessel coronary artery disease, now she is being evaluated by surgery, patient does have severe LV dysfunction, she is definitely high surgical risk, but no absolute contraindication to surgery.Basic metabolic profile is normal BUN is 85 creatinine 3.58 however the patient may require hemodialysis, and she will need nephrology clearance she will also need a bedside spirometry/FEV1 for preoperative pulmonary clearance in the meantime we will continue diuretics/Lasix drip Patient was reevaluated today on 02/17/2024, remains on Lasix drip, remains in ne gative fluid balance, patient is very well aware that she had abnormal cardiac catheterization and now she is being evaluated for possible myocardial revascularization. Patient remains on oxygen at 2 L/min and her O2 sats is 97%, her PFT showed severe obstructive lung disease, however not severe enough to not consider myocardial revascularization if the patient is cleared by other consultants including nephrology and cardiology. Patient has been a smoker over the years, she had at least a [id number] smoking history. Remind you patient had a PFT with chest x-ray still showing evidence of pulmonary edema which will definitely compromise her PFT will likely reflect more restriction than ob structive lung disease. WBC count today is 4.9 hemoglobin 7.7 electrolytes are normal BUN is 85 creatinine 3.59 Patient was reevaluated today on 02/18/2024, remains on Lasix drip, 10 mg/h, remains in constant negative fluid balance, chest x-ray today is definitely showing improvement but nonetheless her pulmonary edema is not completely resolved. Patient was being considered for CABG however the plan is presently on hold because of her overall pulmonary status and possibly the patient could benefit from more optimization of her congestive heart failure. In the meantime she seems to be doing better with the Lasix drip. Patient is also maintained on bronchodilators for her underlying COPD. Progress note dated February 19, 2024. The patient is seen today in room 385. She was scheduled to have bypass grafting today, but the surgery was canceled. She is currently on 3 L of oxygen by nasal cannula. She continues on a Lasix drip at 10 mg an hour. I did have the opportunity to review her lung function. Her FEV1 is 0.77 L or 27% of predicted. Based on that number alone, without having to evaluate the MVV, or the RV/TLC ratio, the patient is at high increased operative risk. Current laboratory data includes a white count 5.1, hemoglobin 8.3, hematocrit 26.6, and a platelet count of 403,000. Sodium 137, potassium 3.5, chlorides 101, CO2 28, BUN 82, and creatinine 3.34. Calcium is 8.2. Nasal screen was positive for non-MRSA staph. Chest x-ray is consistent with mild CHF. The patient is seen today February 20, 2024 in follow-up on the selective care unit. She is currently sitting up in bed. Awake and alert in no acute distress. She is maintaining O2 saturations in the 90s on 3 L/min per nasal cannula. She remains on a Lasix drip at 10 mg/h. Currently net -1 L balance. White count 4.8. Hemoglobin 7.8. Platelets 309. Sodium 132. Potassium 3.7. Bicarb 28. BUN 84. Creatinine 3.31. Glucose 240. She remains on bronchodilators. Heparin for DVT prophylaxis. She has been worked up for possible coronary artery bypass surgery once she recovers from her acute illness. The patient is seen today February 21, 2024 in follow-up on the selective care unit. She is awake and alert in no acute distress. Maintaining good O2 saturations in the 90s on 2 L/min per nasal cannula. She is continued on Lasix drip at 10 mg/h. This x-ray continues to show interstitial pulmonary edema with small left greater than right pleural effusions. She is status post 1 unit of packed red blood cells this admission. Current hemoglobin 8.2. Platelets 301. White count 5.5. Sodium 133. Potassium 3.9. Bicarb 30. BUN 84. Creatinine 3.05. Glucose 108. Remains on bronchodilators. Heparin for DVT prophylaxis. She is currently in a +159 ml balance. The patient is seen today February 22, 2024 in follow-up on the selective care unit. She is resting comfortably in bed. Awake and alert in no acute distress. Denies any chest pain. No worsening shortness of breath, cough or congestion. Maintaining good O2 saturations in the mid 90s on 2 L/min per nasal cannula. She is afebrile. Hemodynamically stable. She is maintained on DuoNeb inhalations, Pulmicort and Perforomist inhalations, Robitussin as needed. Heparin for DVT prophylaxis. She is continued on diuretics. Currently in a - 800 mL balance. Glucose 269. Progress note dated February 23, 2024. The patient is seen today in room 385. She is resting comfortably. She is on 2 L. She is not receiving any IV fluids. Current labs include a white count 4.8, hemoglobin 7.7, hematocrit 25.6, and a platelet count of 294,000. Sodium 131, potassium 4.3, chlorides 97, CO2 30, BUN 82, creatinine 3.32. Glucose is 164. Calcium 7.8, and magnesium 1.9. The nasal swab, on February 15, was positive for non-MRSA, staph. A chest x-ray today shows similar multifocal airspace opacities. Objective - Vital Signs Vital signs: Vital Signs Temp 97.8 F 02/23/24 08:00 Pulse 72 02/23/24 11:32 Resp 16 02/23/24 08:00 BP 120/76 02/23/24 08:00 Pulse Ox 93 L 02/23/24 08:00 FiO2 Intake & Output 02/22/24 02/23/24 02/23/24 18:59 06:59 18:59 Intake Total 658 540 Output Total 2493 247 6555 Balance -417 140 -1050 Weight 75.4 kg 76.5 kg Intake: Oral 658 540 Output: Urine 9941 923 9897 Other: Voiding Method Indwelling Catheter Indwelling Catheter Indwelling Catheter # Bowel Movements 1 - Exam No acute distress, oriented 3. The patient is currently on 2 L of oxygen. HEENT examination is grossly unremarkable. Mucous membranes are moist. No oral lesions. Neck supple. Full range of motion. No adenopathy thyromegaly or neck vein distention. Cardiovascular examination reveals regular rhythm rate. S1-S2 normal. No S3 or S4. No discernible murmur noted. Heart rate 72 bpm. Lungs reveal scattered rhonchi and crackles. Breath sounds are otherwise equal. No wheezes. 2 L saturation is 93%. Abdomen soft bowel sounds are heard. No masses or tenderness. Extremities are intact. No cyanosis clubbing or edema. Skin is without rash or lesion. Neurologic examination is brief but nonfocal. - Labs CBC & Chem 7: 02/23/24 03:49 02/23/24 03:49 Labs: Abnormal Lab Results - Last 24 Hours (Table) 02/22/24 02/22/24 02/23/24 Range/Units 10:55 19:49 03:48 RBC (3.80-5.40) m/uL Hgb (11.4-16.0) gm/dL Hct (34.0-46.0) % MCHC (31.0-37.0) g/dL Sodium 134 L (137-145) mmol/L Chloride (98-107) mmol/L Carbon Dioxide 33 H (22-30) mmol/L BUN 79 H (7-17) mg/dL Creatinine 3.20 H (0.52-1.04) mg/dL Glucose 186 H (74-99) mg/dL POC Glucose (mg/dL) 175 H 442 H (70-110) mg/dL Calcium 8.1 L (8.4-10.2) mg/dL 02/23/24 02/23/24 02/23/24 Range/Units 03:49 03:49 06:24 RBC 2.60 L (3.80-5.40) m/uL Hgb 7.7 L (11.4-16.0) gm/dL Hct 25.6 L (34.0-46.0) % MCHC 30.1 L (31.0-37.0) g/dL Sodium 131 L (137-145) mmol/L Chloride 97 L (98-107) mmol/L Carbon Dioxide (22-30) mmol/L BUN 82 H (7-17) mg/dL Creatinine 3.32 H (0.52-1.04) mg/dL Glucose 363 H (74-99) mg/dL POC Glucose (mg/dL) 416 H (70-110) mg/dL Calcium 7.8 L (8.4-10.2) mg/dL 02/23/24 Range/Units 11:44 RBC (3.80-5.40) m/uL Hgb (11.4-16.0) gm/dL Hct (34.0-46.0) % MCHC (31.0-37.0) g/dL Sodium (137-145) mmol/L Chloride (98-107) mmol/L Carbon Dioxide (22-30) mmol/L BUN (7-17) mg/dL Creatinine (0.52-1.04) mg/dL Glucose (74-99) mg/dL POC Glucose (mg/dL) 164 H (70-110) mg/dL Calcium (8.4-10.2) mg/dL Assessment and Plan Assessment: Severe triple-vessel coronary artery disease, with anticipated CABG pending. Acute non-ST segment elevation myocardial infarction. Acute hypoxemic respiratory failure secondary to CHF exacerbation. Possible community-acquired bibasilar pneumonia. Ischemic cardiomyopathy with an ejection fraction of 20 to 25%. History of severe mitral valve regurgitation. Normocytic, normochromic anemia. Acute kidney injury. Non-anion gap metabolic acidosis. COPD, severe, with an FEV1 that is 0.77 L or 27% of predicted. Diabetes mellitus. Hypertension. Hyperlipidemia. History of CVA. History of hypothyroidism. History of fibromyalgia. History of GERD. Previous history of tobacco use. Plan: Plan dated February 19, 2024. The patient continues on oxygen, at 3 L. She continues on Lasix drip at 10 mg an hour. The patient was boarded to have surgery today, but the surgery was canceled. The patient's lung function is very poor, with an FEV1 that is 0.77 L or 27% of predicted. Based on that number alone, the patient is at high increased operative risk. The patient continues on bronchodilators, as well as her other medications. Additional recommendations and suggestions are forthcoming. Labs, x-rays, medications are reviewed. We will continue to follow make recommendations. The bronchodilators that she is currently will be improved. Plan dated February 23, 2024. The patient appears to be much more stable from a respiratory status standpoint. She will have repeat PFTs. Labs, x-rays, medications are reviewed. Earlier spirometry showed an FEV1 that was 0.77 L or 27% of predicted. Labs, x-rays, and medications are all reviewed. We will continue to follow the patient, make recommendations along the way. Prognosis is guarded. She continues on bronchodilators. Time with Patient: Less than 30
[2024-02-23 16:34] LABS: Glucose,Whole Blood 188 mg/dL (70-110)
[2024-02-23 20:10] LABS: Glucose,Whole Blood 69 mg/dL (70-110)
[2024-02-23 20:31] LABS: Glucose,Whole Blood 88 mg/dL (70-110)
[2024-02-23] MEDS: FUROSEMIDE 10 MG/ML 10 ML VIAL IV SCH (21:33)
--- NOTE | 2024-02-23 23:39 | P.PN ---
Subjective This is a pleasant 58 years old female with past medical history of multiple medical problems as below She has been incarcerated for 52 days, there is officer at bedside. Patient presents because of shortness of breath and exertional dyspnea has for the last 2 days, she states she hears herself wheezing when she lies down. Currently she is breathing quietly. She is complaining for mild chest pain on the left side, nonradiating nonspecific, feels much better now and very mild. She has occasional cough but no phlegm. Also she is complaining from upset stomach but no diarrhea or vomiting She complains from decreased urination but no dysuria or urgency. She has mild headache feels generally weak but no dizziness or blurry vision. She used to smoke half pack per day before she got incarcerated No alcohol or illicit drugs. She follow-up with her swage tender Dr. Donal Herrera and inspector watch train Dr. Babb who examined her about 2 months ago where she has some mild ulcer In the bottom of her right total This morning patient has low-grade fever 100.2 She is also mildly tachypneic around 22 She is saturating 93% on 2 L oxygen via nasal cannula Labs reviewed showing hemoglobin of 7.7, rest of CBC is unremarkable BMP liver enzymes not elevated. INR 0.9. Lactic 0.9 proBNP is elevated 25 100 EKG showing sinus rhythm at [address]-T changes, no left bundle branch block 02/17/2024 --Patient is seen and evaluated in room at bedside; remains on Lasix drip, remains in negative fluid balance - patient underwent cardiac catheterization which revealed severe triple-vessel coronary artery disease and now she is being evaluated for possible myocardial revascularization. Patient remains on oxygen at 2 L/min and her O2 sats is 97%, her PFT showed severe obstructive lung disease, however not severe enough to not consider myocardial revascularization if the patient is cleared by other consultants including nephrology and cardiology. Patient has been a smoker over the years, she had at least a 12-izcu-iafo smoking history. Remind you patient had a PFT with chest x-ray still showing evidence of pulmonary edema which will definitely compromise her PFT will likely reflect more restriction than obstructive lung disease. WBC count today is 4.9 hemoglobin 7.7 electrolytes are normal BUN is 85 creatinine 3.59 02/18/2024 Patient is seen and evaluated in room at bedside; sitting up in bed; ports stable breathing - patient underwent AFRICA which revealed aortic valve tricuspid and functioning normally. Mitral valve structurally normal with mild central secondary mitral regurgitation. Pulmonary vein flow has systolic dominance. Tricuspid valve appears to be normal with mild tricuspid regurgitation. Intra-atrial septum is intact with no evidence of PFO. Left atrial appendage free of clot. LV EF 35% with global hypokinesis. -- Patient is followed by cardiothoracic surgery and also nephrology. Nephrology not recommending any indication or need for hemodialysis. Patient remains on Lasix drip per nephrology. Patient has a negative fluid balance of 1322. Repeat blood work reveals hemoglobin is 7.9. BUN 82 creatinine 3.39. Mild elevation in liver function test. -Plan for surgery once clinically optimized 02/19/2024 Patient looks more awake than admission, sitting up in bed. Alf officers at bedside Mentation at baseline. She talks freely. Denies chest pain or dyspnea at rest On presentation patient was found acute CHF and non-STEMI, workup showing triple-vessel coronary artery disease and patient will require bypass procedure with cardiothoracic surgery team on the case once medically optimized. Patient currently with fluid overload on Lasix drip, on admission it was 5 mg/h, currently increased to 10 mg/h. She is making around 1 L of urine output by yesterday. Saldaña catheter in place. She is also on aspirin 81 mg Hemoglobin 8.5, creatinine 3.3 compared to 2.7 on admission with baseline 0.9- 1.2. Liver enzymes mildly elevated since admission. 02/20/2024 Patient came from [facility] for an NSTEMI. Workup showing severe triple-vessel coronary artery disease currently being evaluated by cardiothoracic surgery team for possible cardiac bypass procedure. However she needs optimization and she is currently kept on IV Lasix 10 mg, creatinine went up 3.3 today. Manager Registration recommended to continue with Lasix drip still tomorrow Patient diabetic, she is on Levemir 8 units twice daily, she is developing episodes of hypoglycemia we will going to lower the dose to 6 units twice daily She is also on aspirin 325 mg 02/21/2024 Patient continues to improve today, she is more energetic, less dyspneic Lasix drip switched to IV Lasix 60 mg twice daily Cardiothoracic surgery team with plan for valve replacement surgery on this coming Sunday 02/25 Sugars better controlled with no hyperglycemia on Levemir 6 units twice daily 02/22/2024 Patient breathing is stable, denies chest pain No new complaint Will go check breathing tomorrow Plan for cardiac surgery on Monday02/23/2024 Patient awake alert She feels more weak today Creatinine is up Plan for cardiac surgery early next week Objective - Vital Signs Vital signs: Vital Signs Temp 97.8 F 02/23/24 13:00 Pulse 74 02/23/24 13:00 Resp 18 02/23/24 13:00 BP 105/71 02/23/24 13:00 Pulse Ox 96 02/23/24 13:00 FiO2 Intake & Output 02/22/24 02/23/24 02/23/24 18:59 06:59 18:59 Intake Total 658 540 Output Total 7601 615 1865 Balance -417 140 -1050 Weight 75.4 kg 76.5 kg Intake: Oral 658 540 Output: Urine 5664 448 7926 Other: Voiding Method Indwelling Catheter Indwelling Catheter Indwelling Catheter # Bowel Movements 1 - Exam -GENERAL: The patient is alert and oriented x3, not in any acute distress. Well developed, well nourished. Generally weak and lethargic HEENT: Pupils are round and equally reacting to light. EOMI. No scleral icterus. No conjunctival pallor. Normocephalic, atraumatic. No pharyngeal erythema. No thyromegaly. CARDIOVASCULAR: S1 and S2 present. No murmurs, rubs, or gallops. -PULMONARY: Chest is clear to auscultation, no wheezing , no crackles. Tac hypnea -ABDOMEN: Soft, nontender, nondistended, normoactive bowel sounds. No palpable organomegaly. Saldaña catheter in place MUSCULOSKELETAL: No joint swelling or deformity. -EXTREMITIES: No cyanosis, clubbing, 1+ bilateral pitting leg edema. NEUROLOGICAL: Gross neurological examination did not reveal any focal deficits. SKIN: No rashes. no petechiae. - Labs CBC & Chem 7: 02/23/24 03:49 02/23/24 03:49 Labs: Abnormal Lab Results - Last 24 Hours (Table) 02/22/24 02/23/24 02/23/24 Range/Units 19:49 03:48 03:49 RBC 2.60 L (3.80-5.40) m/uL Hgb 7.7 L (11.4-16.0) gm/dL Hct 25.6 L (34.0-46.0) % MCHC 30.1 L (31.0-37.0) g/dL Sodium (137-145) mmol/L Chloride (98-107) mmol/L BUN (7-17) mg/dL Creatinine (0.52-1.04) mg/dL Glucose (74-99) mg/dL POC Glucose (mg/dL) 175 H 442 H (70-110) mg/dL Calcium (8.4-10.2) mg/dL 02/23/24 02/23/24 02/23/24 Range/Units 03:49 06:24 11:44 RBC (3.80-5.40) m/uL Hgb (11.4-16.0) gm/dL Hct (34.0-46.0) % MCHC (31.0-37.0) g/dL Sodium 131 L (137-145) mmol/L Chloride 97 L (98-107) mmol/L BUN 82 H (7-17) mg/dL Creatinine 3.32 H (0.52-1.04) mg/dL Glucose 363 H (74-99) mg/dL POC Glucose (mg/dL) 416 H 164 H (70-110) mg/dL Calcium 7.8 L (8.4-10.2) mg/dL Assessment and Plan Assessment: Acute systolic CHF exacerbation, ejection fraction: 20 to 25% non-STEMI, ekg New left bundle branch block, secondary to triple-vessel coronary artery disease requiring CABG Mild hypoxic respiratory failure, improved Acute kidney injury on chronic kidney disease, nonoliguric Acute on chronic anemia of chronic disease Acute urinary tract infection, urine culture showing skin or genital kwesi. 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 Labs and medication were reviewed.. Continue same treatment. Continue with symptomatic treatment. Resume home medication. Monitor labs and vitals. DVT and GI prophylaxis. Further recommendations as per clinical course of the patient DVT prophylaxis: heparin GI Prophylaxis: Pepcid Prognosis is guarded given her multiple disease of the heart kidneys
[2024-02-24 02:15] LABS: Glucose,Whole Blood 204 mg/dL (70-110)
[2024-02-24 06:11] LABS: Glucose,Whole Blood 210 mg/dL (70-110)
--- NOTE | 2024-02-24 07:05 | P.PN ---
Subjective Progress Note Date: 02/24/24 HISTORY OF PRESENT ILLNESS: This is a 58-year-old female with a past medical history significant for former nicotine dependence, hypertension, CVA, hypothyroidism, and diabetes. Patient follows in the office with Dr. Saunders and was last seen in May 2023. We have been asked to see the patient in consultation for non-STEMI and CHF. Patient examined at the bedside in the emergency room. Patient is currently incarcerated and there is a licensed dispensing optician at the bedside. Patient states she has been feeling short of breath and feeling weak. She states this started about 2 days ago. She states that she was in court and afterwards they had to use a wheelchair to get her back into the vehicle as she was too weak to walk. She also reports feeling dizzy and having pounding in her chest. She reports a sl ight cough. She denied having a fever previously to her knowledge. However patient was febrile this morning with a temperature of 100.2. She also reports lower extremity edema that started in the middle of December. She reports nausea yesterday that was relieved with Zofran. Patient was found to be anemic on admission with a hemoglobin of 7.7. Repeat 7.1. Last hemoglobin was back in 2021 but was normal at 12.3. The patient denies a history of anemia. Unsure if this anemia is new or has been present for a while as her last blood work was not since 2021. She denies any blood in her stool or urine. She does report decreased urine output. Patient was also found to have acute kidney injury with a creatinine of 2.96. Back in 2021, patient's kidney function was within normal limits. Patient was also found to have elevated troponins and was started on IV heparin. She denied having any chest pain or pressure. Patient is a former cigarette smoker and has not smoked in 55 days since being in senior living. She denies alcohol abuse many years ago but nothing recently. She denies drug use i ncluding marijuana. DIAGNOSTICS: - EKG reveals sinus mechanism with left bundle branch block. - Chest xray consolation of findings favor CHF over pneumonia. Correlate clinically. Underlying COPD. Loop recorder device seen. Bilateral consolidation and small effusion with diffuse interstitial pattern.. - Laboratory data: WBC 6.2. Hemoglobin 7.1. Platelet count 300. Sodium 133. Potassium 4.9. BUN 56. Creatinine 2.96. AST 55. ALT 35. proBNP 25,100. Troponin 1.290. 1.760. 2.210. - Current home cardiac medications include Lipitor 20 mg at night. - Most recent echocardiogram obtained in February 2022 revealed ejection fraction 55 to 60%, mild MR, mild TR - Patient underwent dobutamine stress test in March 2023 at the office which was negative for ischemia 02/08/2024 Patient examined this morning at the bedside. Patient states her shortness of breath has improved today. She complains of mild chest discomfort when she feels short of breath. She states the chest pain is worse with deep inspiration. Her lower extremity edema has improved from yesterday. She has been transition to IV Lasix drip per nephrology. Echocardiogram completed revealing ejection fraction 20 to 25%, mild pulm hypertension, moderate to severe mitral regurgitation, mild aortic regurgitation, trace to mild tricuspid regurgitation and small pericardial effusion. 02/09/2024 Patient examined this morning at the bedside. Patient continues to report shortness of breath at the time of examination. She reports that she developed a cough also today. She reports chest discomfort that is worse with deep ins piration. She remains on a Lasix drip at 5 mg an hour. Creatinine 3.41. Hemoglobin 7.4. Blood pressure is stable. Telemetry reveals sinus mechanism. 02/10/2024 Patient examined this morning at the bedside. Patient continues to report shortness of breath. She continues to have a cough. She denies any chest discomfort at the time of examination. She remains on a Lasix drip at 5 mg an hour. Creatinine today is 3.44. Hemoglobin 7.2. 02/11/2024 Patient examined this morning at the bedside. Patient reports that she slept well overnight. She currently denies any chest pain or pressure. She reports improvement in her shortness of breath and also with her cough. Renal function worsened today at 3.71. She remains on IV Lasix at 10 mg an hour. 02/11 Patient seen and examined. Patient still minutes to significant shortness breath mainly with exertion. She occasionally has some chest tightness however not clearly associated with exertion and more feels like she cannot take a deep breath in. Creatinine stable at 3.8. She is receiving 1 unit of packed red blood cell for hemoglobin 6.7. Remains on IV diuretics. 02/12 Patient is seen today in follow-up. She states she may feel a little bit better after blood transfusion but continues to feel tired, shortness of breath have some chest pain with exertion. Blood pressure 125/80, heart rate between 72 and 91, pulse ox 95% on room air. Repeat blood work reveals hemoglobin 7.4. BUN 83 creatinine 2.6. Discussed option of stress test in the next 1 to 2 days and patient is agreeable for this. 02/13 Patient complains of feeling tired, upset stomach. She has shortness of breath with minimal activity. She had an episode of chest pain last night but none now. Renal function is worsening with BUN of 87 creatinine 3.55. Sodium 135, potassium 4.6. 02/14 Lexiscan Cardiolite stress test came back abnormal with large area of fixed defect involving all segments of the myocardium suggestive of remote ischemia. Cannot exclude a tiny area of stress induced reversibility within the apex. Reduced wall motion activity with EF of only 21%. Results reviewed with patient and next option with cardiac catheterization discussed with the patient with understanding that patient does have abnormal renal function and would need to be cleared by nephrology. Dr. Berman will contact Dr. Lane regarding possible cardiac catheterization. Blood pressure 143/84, heart rate 93, pulse ox 95% on 2 L nasal cannula. Patient remains on IV Lasix drip at 10 mg/h. She has a negative fluid balance. She is on a fluid restriction of 1200 mL 02/15 Patient underwent cardiac catheterization today with Dr. Lane which revealed calcified coronary arteries. Severe triple-vessel disease. Right dominance. Mildly elevated LVEDP. She has been seen by CTS with tentative plan for CABG on Monday pending results of AFRICA. Patient will be scheduled tomorrow for AFRICA with Dr. Berman. Blood pressure 113/59, heart rate 96, pulse ox 93% on 2 L nasal cannula. Repeat blood work reveals BUN 85 creatinine 3.58. 02/17 Yesterday, patient underwent AFRICA which revealed aortic valve tricuspid and functioning normally. Mitral valve structurally normal with mild central secondary mitral regurgitation. Pulmonary vein flow has systolic dominance. Tricuspid valve appears to be normal with mild tricuspid regurgitation. Intra- atrial septum is intact with no evidence of PFO. Left atrial appendage free of clot. LV EF 35% with global hypokinesis. Patient is followed by cardiothoracic surgery and also nephrology. If patient is requiring dialysis, plan would be for patient to start dialysis prior to open heart surgery. Patient remains on Lasix drip per nephrology. Patient has a negative fluid balance of 1322. Repeat blood work reveals hemoglobin is 7.9. BUN 82 creatinine 3.39. Mild elevation in liver function test. 02/20/2024 Patient examined this morning at bedside. Patient currently denies chest pain or pressure. She denies shortness of breath. She remains on IV Lasix infusion. Kidney function remained stable. 02/21/2024 Patient examined this morning at the bedside. Patient currently denies chest pain or pressure. She denies shortness of breath. Patient was on an IV Lasix infusion this morning. She has since been transitioned to IV push Lasix 60 mg every 12 hours per nephrology. Chest x-ray this morning revealed CHF with ongoing interstitial pulmonary edema. Small left greater than right pleural effusion also persist. 02/22/2024 Patient examined this morning at the bedside. Patient currently denies chest pain or pressure. She denies shortness of breath. She remains on IV Lasix 60 mg every 12 hours IV push. Labs from this morning are currently pending. 02/24/2024 No new cardiac symptoms, hemodynamically stable to be noted chest x-ray shows groundglass opacities in bilateral lungs. Kidney function stable, making urine with diuretics. Reports having shortness of breath today. PHYSICAL EXAM: VITAL SIGNS: Reviewed. GENERAL: Well-developed in no acute distress. HEENT: Head is normocephalic. Pupils are equal, round. Sclerae anicteric. Mucous membranes of the mouth are moist. Neck supple. No JVD or thyromegaly LUNGS: Respirations even and unlabored. Lungs essentially clear to auscultation bilaterally. HEART: Regular rate and rhythm. S1 and S2 heard. ABDOMEN: Soft. Nondistended. Nontender. EXTREMITIES: Normal range of motion. No clubbing or cyanosis. Peripheral pulses intact. No lower extremity edema NEUROLOGIC: Awake and alert. Oriented x 3. ASSESSMENT: Febrile illness Shortness of breath Non-STEMI Triple-vessel coronary artery disease Acute heart failure with reduced EF, 20 to 25% New onset cardiomyopathy, ischemic Left bundle branch block Acute kidney injury, renal function was fairly normal in 2021 Anemia, acute anemia versus anemia of chronic disease due to renal failure, dura tion of anemia/EDWINA unknown Moderate to severe mitral regurgitation on TTE, mild mitral regurgitation on AFRICA History of hypertension History of CVA x 2 Diabetes Hypothyroidism Former nicotine dependence Minimally elevated LFTs PLAN: Continue current cardiac medications Nephrology following. Continue IV Lasix 60 mg every 12 hours per nephrology Daily weights, accurate intake and output, and monitoring of kidney function CT surgery following. Plan for CABG when patient is medically optimized for surgical intervention. Patient tentatively scheduled for Monday, February 26, 2024 Further recommendations pending patient course Objective - Vital Signs Vital signs: Vital Signs Temp 98 F 02/23/24 20:00 Pulse 75 02/24/24 04:00 Resp 16 02/24/24 04:00 BP 117/59 02/24/24 04:00 Pulse Ox 94 L 02/24/24 04:00 FiO2 Intake & Output 02/23/24 02/24/24 02/24/24 18:59 06:59 18:59 Output Total 1500 700 Balance -1500 -700 Weight 74.6 kg Output: Urine 1500 700 Other: Voiding Method Indwelling Catheter Indwelling Catheter # Bowel Movements 1 1 - Labs CBC & Chem 7: 02/23/24 03:49 02/23/24 03:49 Labs: Abnormal Lab Results - Last 24 Hours (Table) 02/23/24 02/23/24 02/23/24 Range/Units 11:44 16:32 20:09 POC Glucose (mg/dL) 164 H 188 H 69 L (70-110) mg/dL 02/24/24 02/24/24 Range/Units 02:13 06:09 POC Glucose (mg/dL) 204 H 210 H (70-110) mg/dL
--- NOTE | 2024-02-24 07:32 | P.PN ---
Subjective Progress Note Date: 02/24/24 Principal diagnosis: Triple-vessel coronary artery disease, non-STEMI this admission, acute heart failure with reduced ejection fraction, new onset ischemic cardiomyopathy, moderate to severe mitral regurgitation, acute on chronic kidney disease, acute anemia. History of hypertension, hyperlipidemia, hypothyroid, diabetes mellitus, CVA, hepatitis as a child, CKD stage IV, previous tobacco dependence with recent cessation, severe COPD, previous methamphetamine use with recent cessation, family history of coronary artery disease The patient was seen and examined this morning sitting up in bed on the cardiac stepdown unit in no acute distress, police superintendent present. Patient currently denies any chest pain, does admit to feeling more short of breath today. Intermittent IV Lasix continues. Patient continues to have a negative fluid balance, however not all intake is being documented. Will need to reevaluate lung function, plan for arterial blood gas and repeat bedside spirometry today per recommendations from pulmonology. Currently our plan is for off-pump CABG on Monday with Dr. Gillette. No other new concerns at this time. Objective - Vital Signs Vital signs: Vital Signs Temp 98 F 02/23/24 20:00 Pulse 75 02/24/24 04:00 Resp 16 02/24/24 04:00 BP 117/59 02/24/24 04:00 Pulse Ox 94 L 02/24/24 04:00 FiO2 Intake & Output 02/23/24 02/24/24 02/24/24 18:59 06:59 18:59 Output Total 1500 700 Balance -1500 -700 Weight 74.6 kg Output: Urine 1500 700 Other: Voiding Method Indwelling Catheter Indwelling Catheter # Bowel Movements 1 1 - Exam CONSTITUTIONAL: Appears comfortable, cooperative, no acute distress RESPIRATORY: Lungs sounds diminished bilaterally. Respirations even, nonlabored. Currently on 2 L nasal cannula with oxygen saturation 94%. Strong cough. CARDIOVASCULAR: S1, S2 present. Regular rate and rhythm, sinus rhythm on telemetry. Palpable peripheral pulses bilaterally. No edema present. No calf pain or tenderness noted GASTROINTESTINAL: Abdomen soft, nontender, nondistended. Active bowel sounds present 4 quadrants. Tolerating diet. Positive bowel movement 02/22 GENITOURINARY: Saldaña present draining clear, yellow urine. Output overnight 2200 mL in the last 24 hours INTEGUMENTARY: Skin is warm and dry NEUROLOGIC: Cranial nerves II through XII intact MUSKULOSKELETAL: Able to move all extremities, strength equal bilaterally PSYCHIATRIC: Alert and oriented to person place and time, appropriate affect, intact judgment and insight - Allied health notes Allied health notes reviewed: nursing - Labs CBC & Chem 7: 02/23/24 03:49 02/23/24 03:49 Labs: Abnormal Lab Results - Last 24 Hours (Table) 02/23/24 02/23/24 02/23/24 Range/Units 11:44 16:32 20:09 POC Glucose (mg/dL) 164 H 188 H 69 L (70-110) mg/dL 02/24/24 02/24/24 Range/Units 02:13 06:09 POC Glucose (mg/dL) 204 H 210 H (70-110) mg/dL - Imaging and Cardiology Chest x-ray: image reviewed Assessment and Plan Assessment: Triple-vessel coronary artery disease, non-STEMI this admission Acute heart failure with reduced ejection fraction, 20-25%, 35% on AFRICA New onset ischemic cardiomyopathy Moderate to severe mitral regurgitation on transthoracic echocardiogram, mild mitral regurgitation on AFRICA Acute on chronic kidney disease Acute anemia Hypertension Hyperlipidemia, treated, cholesterol 150, LDL 72.8 Hypothyroid, TSH 1.73 Diabetes mellitus, hemoglobin A1c 7.1% CVA Hepatitis as a child CKD Previous tobacco dependence with recent cessation Severe COPD, preoperative FEV1 27% of predicted Previous methamphetamine use with recent cessation Family history of coronary artery disease with sister having multiple stents Plan: Continue to maximize medical therapy with aspirin, statin, beta-alxe, IV Lasix Continue preoperative teaching Increase activity as tolerated, ambulate minimum 3 times daily, discussed with RN Encourage incentive spirometry use Aggressive risk factor management Will repeat bedside spirometry and room air ABG today per pulmonology recommendations Tentatively we will plan for off-pump coronary artery bypass surgery Monday, February 26, [address] Gillette Management of other comorbidities per internal medicine, cardiology, pulmonology, nephrology More recommendations to follow
[2024-02-24 08:28] LABS: HCT 26.8 % (34.0-46.0); Hypochromasia Moderate; MCH 29.2 pg (25.0-35.0); MCV 97.4 fL (80.0-100.0); Mean Platelet Volume 8.1; Platelet Count 358 k/uL (150-450); Poikilocytosis Slight; RBC 2.75 m/uL (3.80-5.40); RDW 14.4 % (11.5-15.5); WBC 6.1 k/uL (3.8-10.6)
[2024-02-24] MEDS ORDERED: FUROSEMIDE 10 MG/ML 4 ML VIAL IV SCH (09:00)
[2024-02-24 10:11] LABS: African American GFR (CKD) 17 (>60 ml/min/1.73 sqM); Anion Gap 5 mmol/L; Blood Urea Nitrogen 78 mg/dL (7-17); Calcium 8.3 mg/dL (8.4-10.2); Carbon Dioxide 30 mmol/L (22-30); Chloride 99 mmol/L (98-107); Glucose 170 mg/dL (74-99); Magnesium 1.9 mg/dL (1.6-2.3); Non-African American GFR(CKD) 15 (>60 ml/min/1.73 sqM); Potassium 3.8 mmol/L (3.5-5.1); Sodium 134 mmol/L (137-145)
--- NOTE | 2024-02-24 11:00 | P.PN ---
Subjective patient is seen for follow-up for acute kidney injury. Currently being diuresed. status post Lasix drip. serum creatinine at 3.2 today urine output at 2.2 L for 24 hours. no significant shortness of breath today Officer is present at bedside. Objective - Vital Signs Vital signs: Vital Signs Temp 98 F 02/23/24 20:00 Pulse 86 02/24/24 10:03 Resp 16 02/24/24 04:00 BP 117/59 02/24/24 04:00 Pulse Ox 94 L 02/24/24 04:00 FiO2 Intake & Output 02/23/24 02/24/24 02/24/24 18:59 06:59 18:59 Intake Total 100 Output Total 1500 700 540 Balance -1500 -700 -440 Weight 74.6 kg Intake: Oral 100 Output: Urine 1500 700 540 Other: Voiding Method Indwelling Catheter Indwelling Catheter # Bowel Movements 1 1 - Exam patient is awake, comfortable, no acute distress Alert oriented 3 Examination of the heart S1 and S2 Examination of the lungs bilateral breath sounds are heard, occasional wheezing heard Abdomen is soft nontender Examination of lower extremities shows 1+ edema. [employer] exam grossly intact - Labs CBC & Chem 7: 02/24/24 07:59 02/24/24 07:59 Labs: Abnormal Lab Results - Last 24 Hours (Table) 02/23/24 02/23/24 02/23/24 Range/Units 11:44 16:32 20:09 RBC (3.80-5.40) m/uL Hgb (11.4-16.0) gm/dL Hct (34.0-46.0) % MCHC (31.0-37.0) g/dL Sodium (137-145) mmol/L BUN (7-17) mg/dL Creatinine (0.52-1.04) mg/dL Glucose (74-99) mg/dL POC Glucose (mg/dL) 164 H 188 H 69 L (70-110) mg/dL Calcium (8.4-10.2) mg/dL 02/24/24 02/24/24 02/24/24 Range/Units 02:13 06:09 07:59 RBC 2.75 L (3.80-5.40) m/uL Hgb 8.0 L (11.4-16.0) gm/dL Hct 26.8 L (34.0-46.0) % MCHC 30.0 L (31.0-37.0) g/dL Sodium (137-145) mmol/L BUN (7-17) mg/dL Creatinine (0.52-1.04) mg/dL Glucose (74-99) mg/dL POC Glucose (mg/dL) 204 H 210 H (70-110) mg/dL Calcium (8.4-10.2) mg/dL 02/24/24 Range/Units 07:59 RBC (3.80-5.40) m/uL Hgb (11.4-16.0) gm/dL Hct (34.0-46.0) % MCHC (31.0-37.0) g/dL Sodium 134 L (137-145) mmol/L BUN 78 H (7-17) mg/dL Creatinine 3.24 H (0.52-1.04) mg/dL Glucose 170 H (74-99) mg/dL POC Glucose (mg/dL) (70-110) mg/dL Calcium 8.3 L (8.4-10.2) mg/dL Assessment and Plan Assessment: 1. Acute kidney injury secondary to ATN secondary to cardiorenal syndrome. Creatinine decreased to 3.0, increased to 3.3 today Creatinine as low as 0.98 dated March 01, 2022. No hydronephrosis noted on kidney ultrasound. Serologies negative. good urine output. status post Lasix drip 2. Acute on chronic systolic CHF with ejection fraction of 20 to 25% with moderate to severe mitral regurgitation and mild pulmonary hypertension. 3. Volume overload. Improving with diuresis. 4. Anemia. Iron deficiency noted. Status post IV iron. On Aranesp. GI following. Status post blood transfusion this admission. Also received IV DDAVP. 5. Metabolic acidosis secondary to acute kidney injury. On oral bicarb. Stable. 6. Hypervolemic hyponatremia. Also component of hypertonicity from hyperglycemia. Better. 7. Urinary retention status post Saldaña catheter placement. On Flomax. Plan: continue current dose of IV Lasix Repeat labs in a.m.
[2024-02-24 11:38] LABS: Glucose,Whole Blood 195 mg/dL (70-110)
--- NOTE | 2024-02-24 11:51 | XR ---
EXAM: XR chest 1V portable CLINICAL INDICATION:Female, 58 years old with history of heart failure; [facility] COMPARISON: 02/23/2024 TECHNIQUE: Chest single view. FINDINGS: Lines/tubes/devices: EKG leads overlie the chest. No indwelling lines are seen. Loop recorder on the left. Cardiomediastinum: Cardiac silhouette appears stable, mildly enlarged Stable mediastinal silhouette. Vasculature: Mild pulmonary vascular congestion and interstitial prominence again noted, could be re lated to edema or pneumonitis. Lungs/pleura: Stable mild left basilar pleural/parenchymal opacity. Right costophrenic angle is sharp. There is wha t appears to been a change on the right, favored to be skinfold over pneumothorax. Bones/soft tissues: Osseous structures appear grossly intact as seen. Radiodensity inferior to the left glenohumeral join t likely degenerative. IMPRESSION: Cardiomegaly. Overall similar lung findings, suggestive of edema and/or infection.
--- NOTE | 2024-02-24 12:37 | P.PN ---
Subjective Progress Note Date: 02/24/24 Principal diagnosis: Coronary artery disease, CHF. The patient is seen today February 12, 2024 in follow-up on the selective care unit. She is currently sitting up in bed. Awake and alert in no acute distress. She is maintaining O2 saturation in the 90s on 3 L nasal cannula. She is afebrile. Hemodynamically stable. Today's chest x-ray reviewed reveals diffuse bilateral infiltrates with small effusion or early congestive heart failure. Hemoglobin 6.7. 1 unit of packed blood cells have been ordered. Platelets 362. White count 6.1. Sodium 131. Potassium 4.2. Bicarb 21. BUN 80. Creatinine 3.89. Glucose 286. She remains on. Antibiotics in the form of ceftriaxone. Remains on a Lasix drip at 5 mg an hour. Currently in a -178 mL balance. The patient is seen today February 13, 2024 in follow-up on the selective care unit. She is awake and alert in no acute distress. Sitting up in bed. Blood and urine cultures revealed no growth. White count 6.2. Hemoglobin 7.4. Platelets 01/05/1978. Sodium 133. Potassium 3.9. Bicarb 21. BUN 83. Creatinine 3.60. Glucose 154. She remains on a Lasix drip currently at 5 mg/h. She remains on a heparin drip. Receiving sodium bicarb tablets. Continued on bronchodilators. Continued on antibiotics in the form of ceftriaxone. She is currently in a negative balance. Voided 1 L today. The patient is seen today February 14, 2024 in follow-up on the selective care unit. She is currently sitting up in bed. Awake and alert in no acute distress. She is maintaining good O2 saturations in the 90s on 3 L/min per nasal cannula. She is afebrile. Hemodynamically stable. Follow-up chest x-ray continues to show diffuse bilateral infiltrate with small effusions. She is status post 1 unit of packed red blood cells this admission. Last hemoglobin 7.7. Sodium 135. Potassium 4.6. Bicarb 20. BUN 87. Creatinine 3.55. Glucose 358. She is continued on bronchodilators. Antibiotics in form of ceftriaxone. She remains on a Lasix drip at 10 mg/h. Receiving sodium bicarb tablets. Currently -688 mL balance. Nephrology is following. The patient is seen today February 15, 2024 in follow-up on the selective care unit. She is currently sitting up in bed awake and alert in no acute distress. She is maintaining O2 saturations in the mid 90s on 2 L/min per nasal cannula. She is afebrile. Hemodynamically stable. White count 6.8. Hemoglobin 8.6. Platelets 438. Sodium 135. Potassium 4.0. Bicarb 21. BUN 84. Creatinine 3.41. Glucose 171. She remains on a Lasix drip at 10 mg/h. Continued on a heparin drip. Plan to -1 L balance. Stress testing today reveals a large area of fixed defect involving all segments of the myocardium suggestive of remote ischemia. Could not exclude a tiny area of stress-induced reversibility within the apex. Reduced wall motion activity with ejection fraction of only 21%. Patient was seen and examined today on 02/16/2024 patient is feeling better today, continues to diurese with a Lasix drip, remains in negative fluid balance, patient underwent cardiac catheterization today and she was found to have severe triple-vessel coronary artery disease, now she is being evaluated by surgery, patient does have severe LV dysfunction, she is definitely high surgical risk, but no absolute contraindication to surgery.Basic metabolic profile is normal BUN is 85 creatinine 3.58 however the patient may require hemodialysis, and she will need nephrology clearance she will also need a bedside spirometry/FEV1 for preoperative pulmonary clearance in the meantime we will continue diuretics/Lasix drip Patient was reevaluated today on 02/17/2024, remains on Lasix drip, remains in ne gative fluid balance, patient is very well aware that she had abnormal cardiac catheterization and now she is being evaluated for possible myocardial revascularization. Patient remains on oxygen at 2 L/min and her O2 sats is 97%, her PFT showed severe obstructive lung disease, however not severe enough to not consider myocardial revascularization if the patient is cleared by other consultants including nephrology and cardiology. Patient has been a smoker over the years, she had at least a [id number] smoking history. Remind you patient had a PFT with chest x-ray still showing evidence of pulmonary edema which will definitely compromise her PFT will likely reflect more restriction than ob structive lung disease. WBC count today is 4.9 hemoglobin 7.7 electrolytes are normal BUN is 85 creatinine 3.59 Patient was reevaluated today on 02/18/2024, remains on Lasix drip, 10 mg/h, remains in constant negative fluid balance, chest x-ray today is definitely showing improvement but nonetheless her pulmonary edema is not completely resolved. Patient was being considered for CABG however the plan is presently on hold because of her overall pulmonary status and possibly the patient could benefit from more optimization of her congestive heart failure. In the meantime she seems to be doing better with the Lasix drip. Patient is also maintained on bronchodilators for her underlying COPD. Progress note dated February 19, 2024. The patient is seen today in room 385. She was scheduled to have bypass grafting today, but the surgery was canceled. She is currently on 3 L of oxygen by nasal cannula. She continues on a Lasix drip at 10 mg an hour. I did have the opportunity to review her lung function. Her FEV1 is 0.77 L or 27% of predicted. Based on that number alone, without having to evaluate the MVV, or the RV/TLC ratio, the patient is at high increased operative risk. Current laboratory data includes a white count 5.1, hemoglobin 8.3, hematocrit 26.6, and a platelet count of 403,000. Sodium 137, potassium 3.5, chlorides 101, CO2 28, BUN 82, and creatinine 3.34. Calcium is 8.2. Nasal screen was positive for non-MRSA staph. Chest x-ray is consistent with mild CHF. The patient is seen today February 20, 2024 in follow-up on the selective care unit. She is currently sitting up in bed. Awake and alert in no acute distress. She is maintaining O2 saturations in the 90s on 3 L/min per nasal cannula. She remains on a Lasix drip at 10 mg/h. Currently net -1 L balance. White count 4.8. Hemoglobin 7.8. Platelets 309. Sodium 132. Potassium 3.7. Bicarb 28. BUN 84. Creatinine 3.31. Glucose 240. She remains on bronchodilators. Heparin for DVT prophylaxis. She has been worked up for possible coronary artery bypass surgery once she recovers from her acute illness. The patient is seen today February 21, 2024 in follow-up on the selective care unit. She is awake and alert in no acute distress. Maintaining good O2 saturations in the 90s on 2 L/min per nasal cannula. She is continued on Lasix drip at 10 mg/h. This x-ray continues to show interstitial pulmonary edema with small left greater than right pleural effusions. She is status post 1 unit of packed red blood cells this admission. Current hemoglobin 8.2. Platelets 301. White count 5.5. Sodium 133. Potassium 3.9. Bicarb 30. BUN 84. Creatinine 3.05. Glucose 108. Remains on bronchodilators. Heparin for DVT prophylaxis. She is currently in a +159 ml balance. The patient is seen today February 22, 2024 in follow-up on the selective care unit. She is resting comfortably in bed. Awake and alert in no acute distress. Denies any chest pain. No worsening shortness of breath, cough or congestion. Maintaining good O2 saturations in the mid 90s on 2 L/min per nasal cannula. She is afebrile. Hemodynamically stable. She is maintained on DuoNeb inhalations, Pulmicort and Perforomist inhalations, Robitussin as needed. Heparin for DVT prophylaxis. She is continued on diuretics. Currently in a - 800 mL balance. Glucose 269. Progress note dated February 23, 2024. The patient is seen today in room 385. She is resting comfortably. She is on 2 L. She is not receiving any IV fluids. Current labs include a white count 4.8, hemoglobin 7.7, hematocrit 25.6, and a platelet count of 294,000. Sodium 131, potassium 4.3, chlorides 97, CO2 30, BUN 82, creatinine 3.32. Glucose is 164. Calcium 7.8, and magnesium 1.9. The nasal swab, on February 15, was positive for non-MRSA, staph. A chest x-ray today shows similar multifocal airspace opacities. Progress note dated February 24, 2024. This is a 58-year-old female seen today in room 385. She is on oxygen at 2 L. She is not receiving any IV fluids. Today, respiratory was kind enough to repeat spirometry. Her FEV1, prebronchodilator, was 0.71 L. Her FEV1 postbronchodilator was 0.83 L. These lung function are very similar to the prio r lung function, that was done a few days ago. Clinically, the patient's respiratory status appears to be stable. She is satting well on 2 L. She is not manifesting any signs or symptoms of respiratory difficulty or distress. Current laboratory data includes a white count 6.1, hemoglobin 8, hematocrit 26.8, and a normal platelet count. Sodium 134, potassium 3.8, chlorides 99, CO2 30, BUN 78, and creatinine 3.24. Glucose Was 195. Calcium 8.3, Magnesium Is 1.9. Chest x-ray is essentially unchanged, and reveals evidence of cardiomegaly. Objective - Vital Signs Vital signs: Vital Signs Temp 97.8 F 02/24/24 08:00 Pulse 86 02/24/24 10:03 Resp 18 02/24/24 08:00 BP 117/70 02/24/24 08:00 Pulse Ox 92 L 02/24/24 08:00 FiO2 Intake & Output 02/23/24 02/24/24 02/24/24 18:59 06:59 18:59 Intake Total 100 Output Total 1500 700 540 Balance -1500 -700 -440 Weight 74.6 kg Intake: Oral 100 Output: Urine 1500 700 540 Other: Voiding Method Indwelling Catheter Indwelling Catheter Indwelling Catheter # Bowel Movements 1 1 - Exam No acute distress, oriented 3. The patient is currently on 2 L of oxygen. HEENT examination is grossly unremarkable. Mucous membranes are moist. No oral lesions. Neck supple. Full range of motion. No adenopathy thyromegaly or neck vein distention. Cardiovascular examination reveals regular rhythm rate. S1-S2 normal. No S3 or S4. No discernible murmur noted. Heart rate 6 bpm. Lungs reveal scattered rhonchi and crackles. Breath sounds are otherwise equal. No wheezes. 2 L saturation is 92 % Abdomen soft bowel sounds are heard. No masses or tenderness. Extremities are intact. No cyanosis clubbing or edema. Skin is without rash or lesion. Neurologic examination is brief but nonfocal. - Labs CBC & Chem 7: 02/24/24 07:59 02/24/24 07:59 Labs: Abnormal Lab Results - Last 24 Hours (Table) 02/23/24 02/23/24 02/24/24 Range/Units 16:32 20:09 02:13 RBC (3.80-5.40) m/uL Hgb (11.4-16.0) gm/dL Hct (34.0-46.0) % MCHC (31.0-37.0) g/dL Sodium (137-145) mmol/L BUN (7-17) mg/dL Creatinine (0.52-1.04) mg/dL Glucose (74-99) mg/dL POC Glucose (mg/dL) 188 H 69 L 204 H (70-110) mg/dL Calcium (8.4-10.2) mg/dL 02/24/24 02/24/24 02/24/24 Range/Units 06:09 07:59 07:59 RBC 2.75 L (3.80-5.40) m/uL Hgb 8.0 L (11.4-16.0) gm/dL Hct 26.8 L (34.0-46.0) % MCHC 30.0 L (31.0-37.0) g/dL Sodium 134 L (137-145) mmol/L BUN 78 H (7-17) mg/dL Creatinine 3.24 H (0.52-1.04) mg/dL Glucose 170 H (74-99) mg/dL POC Glucose (mg/dL) 210 H (70-110) mg/dL Calcium 8.3 L (8.4-10.2) mg/dL 02/24/24 Range/Units 11:36 RBC (3.80-5.40) m/uL Hgb (11.4-16.0) gm/dL Hct (34.0-46.0) % MCHC (31.0-37.0) g/dL Sodium (137-145) mmol/L BUN (7-17) mg/dL Creatinine (0.52-1.04) mg/dL Glucose (74-99) mg/dL POC Glucose (mg/dL) 195 H (70-110) mg/dL Calcium (8.4-10.2) mg/dL Assessment and Plan Assessment: Severe triple-vessel coronary artery disease, with anticipated CABG pending. Acute non-ST segment elevation myocardial infarction. Acute hypoxemic respiratory failure secondary to CHF exacerbation. Possible community-acquired bibasilar pneumonia. Ischemic cardiomyopathy with an ejection fraction of 20 to 25%. History of severe mitral valve regurgitation. Normocytic, normochromic anemia. Acute kidney injury. Non-anion gap metabolic acidosis. COPD, severe, with an FEV1 that is 0.77 L or 27% of predicted. Diabetes mellitus. Hypertension. Hyperlipidemia. History of CVA. History of hypothyroidism. History of fibromyalgia. History of GERD. Previous history of tobacco use. Plan: Plan dated February 19, 2024. The patient continues on oxygen, at 3 L. She continues on Lasix drip at 10 mg an hour. The patient was boarded to have surgery today, but the surgery was canceled. The patient's lung function is very poor, with an FEV1 that is 0.77 L or 27% of predicted. Based on that number alone, the patient is at high increased operative risk. The patient continues on bronchodilators, as well as her other medications. Additional recommendations and suggestions are forthcoming. Labs, x-rays, medications are reviewed. We will continue to follow make recommendations. The bronchodilators that she is currently will be improved. Plan dated February 23, 2024. The patient appears to be much more stable from a respiratory status standpoint. She will have repeat PFTs. Labs, x-rays, medications are reviewed. Earlier spirometry showed an FEV1 that was 0.77 L or 27% of predicted. Labs, x-rays, and medications are all reviewed. We will continue to follow the patient, make recommendations along the way. Prognosis is guarded. She continues on bronchodilators. Plan dated February 24, 2024. The patient had repeat spirometry today. Her lung function are marginally improved, after bronchodilator. Previous FEV1 was .77 L. Today's postbronchodilator FEV1 is 0.83 L. The patient continues on appropriate bronchodilators. The patient's at high increased operative risk, based on her lung function. Having said that, on 2 L, appears relatively comfortable. Her saturations are in the low to mid 90s. Additional recommendations and suggestions are forthcoming. Prognosis is guarded. She apparently is scheduled to have open heart surgery on Monday, next week. Time with Patient: Less than 30
[2024-02-24 12:41] LABS: ABG Base Excess 8.3 mmol/L; ABG HCO3 32 mmol/L (21-25); ABG Oxygen Saturation 94.9 % (94-97); ABG PCO2 42 mmHg (35-45); ABG PH 7.49 (7.35-7.45); ABG PO2 66 mmHg (83-108); Allen Test Performed? Yes
[2024-02-24 16:40] LABS: Glucose,Whole Blood 101 mg/dL (70-110)
[2024-02-24 20:00] LABS: Glucose,Whole Blood 84 mg/dL (70-110)
--- NOTE | 2024-02-24 22:45 | P.PN ---
Subjective This is a pleasant 58 years old female with past medical history of multiple medical problems as below She has been incarcerated for 52 days, there is officer at bedside. Patient presents because of shortness of breath and exertional dyspnea has for the last 2 days, she states she hears herself wheezing when she lies down. Currently she is breathing quietly. She is complaining for mild chest pain on the left side, nonradiating nonspecific, feels much better now and very mild. She has occasional cough but no phlegm. Also she is complaining from upset stomach but no diarrhea or vomiting She complains from decreased urination but no dysuria or urgency. She has mild headache feels generally weak but no dizziness or blurry vision. She used to smoke half pack per day before she got incarcerated No alcohol or illicit drugs. She follow-up with her recovery manager Dr. Donal Herrera and chain link fence installer Dr. Babb who examined her about 2 months ago where she has some mild ulcer In the bottom of her right total This morning patient has low-grade fever 100.2 She is also mildly tachypneic around 22 She is saturating 93% on 2 L oxygen via nasal cannula Labs reviewed showing hemoglobin of 7.7, rest of CBC is unremarkable BMP liver enzymes not elevated. INR 0.9. Lactic 0.9 proBNP is elevated 25 100 EKG showing sinus rhythm at [address]-T changes, no left bundle branch block 02/17/2024 --Patient is seen and evaluated in room at bedside; remains on Lasix drip, remains in negative fluid balance - patient underwent cardiac catheterization which revealed severe triple-vessel coronary artery disease and now she is being evaluated for possible myocardial revascularization. Patient remains on oxygen at 2 L/min and her O2 sats is 97%, her PFT showed severe obstructive lung disease, however not severe enough to not consider myocardial revascularization if the patient is cleared by other consultants including nephrology and cardiology. Patient has been a smoker over the years, she had at least a [id number] smoking history. Remind you patient had a PFT with chest x-ray still showing evidence of pulmonary edema which will definitely compromise her PFT will likely reflect more restriction than obstructive lung disease. WBC count today is 4.9 hemoglobin 7.7 electrolytes are normal BUN is 85 creatinine 3.59 02/18/2024 Patient is seen and evaluated in room at bedside; sitting up in bed; ports stable breathing - patient underwent AFRICA which revealed aortic valve tricuspid and functioning normally. Mitral valve structurally normal with mild central secondary mitral regurgitation. Pulmonary vein flow has systolic dominance. Tricuspid valve appears to be normal with mild tricuspid regurgitation. Intra-atrial septum is intact with no evidence of PFO. Left atrial appendage free of clot. LV EF 35% with global hypokinesis. -- Patient is followed by cardiothoracic surgery and also nephrology. Nephrology not recommending any indication or need for hemodialysis. Patient remains on Lasix drip per nephrology. Patient has a negative fluid balance of 1322. Repeat blood work reveals hemoglobin is 7.9. BUN 82 creatinine 3.39. Mild elevation in liver function test. -Plan for surgery once clinically optimized 02/19/2024 Patient looks more awake than admission, sitting up in bed. Snf officers at bedside Mentation at baseline. She talks freely. Denies chest pain or dyspnea at rest On presentation patient was found acute CHF and non-STEMI, workup showing triple-vessel coronary artery disease and patient will require bypass procedure with cardiothoracic surgery team on the case once medically optimized. Patient currently with fluid overload on Lasix drip, on admission it was 5 mg/h, currently increased to 10 mg/h. She is making around 1 L of urine output by yesterday. Saldaña catheter in place. She is also on aspirin 81 mg Hemoglobin 8.5, creatinine 3.3 compared to 2.7 on admission with baseline 0.9- 1.2. Liver enzymes mildly elevated since admission. 02/20/2024 Patient came from shelter for an NSTEMI. Workup showing severe triple-vessel coronary artery disease currently being evaluated by cardiothoracic surgery team for possible cardiac bypass procedure. However she needs optimization and she is currently kept on IV Lasix 10 mg, creatinine went up 3.3 today. [facility] recommended to continue with Lasix drip still tomorrow Patient diabetic, she is on Levemir 8 units twice daily, she is developing episodes of hypoglycemia we will going to lower the dose to 6 units twice daily She is also on aspirin 325 mg 02/21/2024 Patient continues to improve today, she is more energetic, less dyspneic Lasix drip switched to IV Lasix 60 mg twice daily Cardiothoracic surgery team with plan for valve replacement surgery on this coming Sunday 02/25 Sugars better controlled with no hyperglycemia on Levemir 6 units twice daily 02/22/2024 Patient breathing is stable, denies chest pain No new complaint Will go check breathing tomorrow Plan for cardiac surgery on Monday02/23/2024 Patient awake alert She feels more weak today Creatinine is up Plan for cardiac surgery early next week 02/24/2024 Patient feels weak No chest pain or dyspnea Patient anticipates surgery on Monday parole hearing officer at bedside Objective - Vital Signs Vital signs: Vital Signs Temp 98 F 02/23/24 20:00 Pulse 86 02/24/24 10:03 Resp 16 02/24/24 04:00 BP 117/59 02/24/24 04:00 Pulse Ox 94 L 02/24/24 04:00 FiO2 Intake & Output 02/23/24 02/24/24 02/24/24 18:59 06:59 18:59 Intake Total 100 Output Total 1500 700 540 Balance -1500 -700 -440 Weight 74.6 kg Intake: Oral 100 Output: Urine 1500 700 540 Other: Voiding Method Indwelling Catheter Indwelling Catheter # Bowel Movements 1 1 - Exam -GENERAL: The patient is alert and oriented x3, not in any acute distress. Well developed, well nourished. Generally weak and lethargic HEENT: Pupils are round and equally reacting to light. EOMI. No scleral icterus. No conjunctival pallor. Normocephalic, atraumatic. No pharyngeal erythema. No thyromegaly. CARDIOVASCULAR: S1 and S2 present. No murmurs, rubs, or gallops. -PULMONARY: Chest is clear to auscultation, no wheezing , no crackles. Tachypnea -ABDOMEN: Soft, nontender, nondistended, normoactive bowel sounds. No palpable organomegaly. Saldaña catheter in place MUSCULOSKELETAL: No joint swelling or deformity. -EXTREMITIES: No cyanosis, clubbing, 1+ bilateral pitting leg edema. NEUROLOGICAL: Gross neurological examination did not reveal any focal deficits. SKIN: No rashes. no petechiae. - Labs CBC & Chem 7: 02/24/24 07:59 02/24/24 07:59 Labs: Abnormal Lab Results - Last 24 Hours (Table) 02/23/24 02/23/24 02/23/24 Range/Units 11:44 16:32 20:09 RBC (3.80-5.40) m/uL Hgb (11.4-16.0) gm/dL Hct (34.0-46.0) % MCHC (31.0-37.0) g/dL Sodium (137-145) mmol/L BUN (7-17) mg/dL Creatinine (0.52-1.04) mg/dL Glucose (74-99) mg/dL POC Glucose (mg/dL) 164 H 188 H 69 L (70-110) mg/dL Calcium (8.4-10.2) mg/dL 02/24/24 02/24/24 02/24/24 Range/Units 02:13 06:09 07:59 RBC 2.75 L (3.80-5.40) m/uL Hgb 8.0 L (11.4-16.0) gm/dL Hct 26.8 L (34.0-46.0) % MCHC 30.0 L (31.0-37.0) g/dL Sodium (137-145) mmol/L BUN (7-17) mg/dL Creatinine (0.52-1.04) mg/dL Glucose (74-99) mg/dL POC Glucose (mg/dL) 204 H 210 H (70-110) mg/dL Calcium (8.4-10.2) mg/dL 02/24/24 Range/Units 07:59 RBC (3.80-5.40) m/uL Hgb (11.4-16.0) gm/dL Hct (34.0-46.0) % MCHC (31.0-37.0) g/dL Sodium 134 L (137-145) mmol/L BUN 78 H (7-17) mg/dL Creatinine 3.24 H (0.52-1.04) mg/dL Glucose 170 H (74-99) mg/dL POC Glucose (mg/dL) (70-110) mg/dL Calcium 8.3 L (8.4-10.2) mg/dL Assessment and Plan Assessment: Acute systolic CHF exacerbation, ejection fraction: 20 to 25% non-STEMI, ekg New left bundle branch block, secondary to triple-vessel coronary artery disease requiring CABG Mild hypoxic respiratory failure, improved Acute kidney injury on chronic kidney disease, nonoliguric Acute on chronic anemia of chronic disease Acute urinary tract infection, urine culture showing skin or genital kwesi. 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 Labs and medication were reviewed.. Continue same treatment. Continue with symptomatic treatment. Resume home medication. Monitor labs and vitals. DVT and GI prophylaxis. Further recommendations as per clinical course of the patient DVT prophylaxis: heparin GI Prophylaxis: Pepcid Prognosis is guarded given her multiple disease of the heart kidneys
[2024-02-25 02:36] LABS: Glucose,Whole Blood 168 mg/dL (70-110)
[2024-02-25 06:05] LABS: Glucose,Whole Blood 225 mg/dL (70-110)
[2024-02-25 06:32] LABS: HCT 26.8 % (34.0-46.0); HGB 8.1 gm/dL (11.4-16.0); Hypochromasia Moderate; MCH 29.5 pg (25.0-35.0); MCHC 30.3 g/dL (31.0-37.0); MCV 97.2 fL (80.0-100.0); Mean Platelet Volume 8.4; Platelet Count 290 k/uL (150-450); RBC 2.76 m/uL (3.80-5.40); WBC 4.7 k/uL (3.8-10.6)
[2024-02-25 06:48] LABS: ALT 40 U/L (4-34); AST 50 U/L (14-36); African American GFR (CKD) 17 (>60 ml/min/1.73 sqM); Albumin 2.3 g/dL (3.5-5.0); Alkaline Phosphatase 174 U/L (38-126); Anion Gap 2 mmol/L; Blood Urea Nitrogen 77 mg/dL (7-17); Calcium 8.2 mg/dL (8.4-10.2); Carbon Dioxide 32 mmol/L (22-30); Chloride 99 mmol/L (98-107); Glucose 200 mg/dL (74-99); Magnesium 1.8 mg/dL (1.6-2.3); Non-African American GFR(CKD) 15 (>60 ml/min/1.73 sqM); Potassium 4.3 mmol/L (3.5-5.1); Sodium 133 mmol/L (137-145); Total Bilirubin 0.3 mg/dL (0.2-1.3); Total Protein 5.3 g/dL (6.3-8.2)
[2024-02-25 07:28] LABS: Partial Thromboplastin Time 26.2 sec (22.0-30.0); Prothrombin Time 10.7 sec (10.0-12.5)
--- NOTE | 2024-02-25 07:34 | P.PN ---
Subjective Progress Note Date: 02/25/24 Principal diagnosis: Triple-vessel coronary artery disease, non-STEMI this admission, acute heart failure with reduced ejection fraction, new onset ischemic cardiomyopathy, moderate to severe mitral regurgitation, acute on chronic kidney disease, acute anemia. History of hypertension, hyperlipidemia, hypothyroid, diabetes mellitus, CVA, hepatitis as a child, CKD stage IV, previous tobacco dependence with recent cessation, severe COPD, previous methamphetamine use with recent cessation, family history of coronary artery disease The patient was seen and examined this morning sitting up in bed on the cardiac stepdown unit in no acute distress, motor equipment commanding officer present. Patient currently denies any chest pain, does admit to feeling more short of breath today and yesterday. Intermittent IV Lasix continues along with Zaroxolyn. Patient continues to have a negative fluid balance, however not all intake is being documented. Repeat bedside spirometry completed yesterday, FEV1 26% of predicted pre and 29% of predicted post bronchodilators, ABG completed on room air, 7.49/42/66/32/95% with base excess 8.3. Pulmonology reporting patient's respiratory status appears stable. Repeat 5 meter walk test completed without difficulty. #1 13.11 sec, #2 12.02 sec, #3 12.71 sec. Currently our plan is for off-pump CABG tomorrow with Dr. Gillette. No other new concerns at this time. Objective - Vital Signs Vital signs: Vital Signs Temp 98.2 F 02/24/24 20:00 Pulse 86 02/25/24 00:00 Resp 18 02/25/24 00:00 BP 123/75 02/25/24 00:00 Pulse Ox 95 02/25/24 00:00 FiO2 Intake & Output 02/24/24 02/25/24 02/25/24 18:59 06:59 18:59 Intake Total 280 240 Output Total 1140 1200 Balance -860 -960 Weight 73.8 kg Intake: Oral 280 240 Output: Urine 1140 1200 Other: Voiding Method Indwelling Catheter Indwelling Catheter # Bowel Movements 1 4 - Exam CONSTITUTIONAL: Appears comfortable, cooperative, no acute distress RESPIRATORY: Lungs sounds diminished bilaterally with faint expiratory wheezes present. Respirations even, nonlabored. Currently on 2 L nasal cannula with oxygen saturation 95%. Strong cough. CARDIOVASCULAR: S1, S2 present. Regular rate and rhythm, sinus rhythm on telemetry. Palpable peripheral pulses bilaterally. No edema present. No calf pain or tenderness noted GASTROINTESTINAL: Abdomen soft, nontender, nondistended. Active bowel sounds present 4 quadrants. Tolerating diet. Positive bowel movement 02/22 GENITOURINARY: Saldaña present draining clear, yellow urine. Output overnight 2340 mL in the last 24 hours INTEGUMENTARY: Skin is warm and dry NEUROLOGIC: Cranial nerves II through XII intact MUSKULOSKELETAL: Able to move all extremities, strength equal bilaterally PSYCHIATRIC: Alert and oriented to person place and time, appropriate affect, intact judgment and insight - Allied health notes Allied health notes reviewed: nursing - Labs CBC & Chem 7: 02/25/24 06:00 02/25/24 06:00 Labs: Abnormal Lab Results - Last 24 Hours (Table) 02/24/24 02/24/24 02/24/24 Range/Units 07:59 07:59 11:36 RBC 2.75 L (3.80-5.40) m/uL Hgb 8.0 L (11.4-16.0) gm/dL Hct 26.8 L (34.0-46.0) % MCHC 30.0 L (31.0-37.0) g/dL ABG pH (7.35-7.45) ABG pO2 (83-108) mmHg ABG HCO3 (21-25) mmol/L Sodium 134 L (137-145) mmol/L Carbon Dioxide (22-30) mmol/L BUN 78 H (7-17) mg/dL Creatinine 3.24 H (0.52-1.04) mg/dL Glucose 170 H (74-99) mg/dL POC Glucose (mg/dL) 195 H (70-110) mg/dL Calcium 8.3 L (8.4-10.2) mg/dL AST (14-36) U/L ALT (4-34) U/L Alkaline Phosphatase (38-126) U/L Total Protein (6.3-8.2) g/dL Albumin (3.5-5.0) g/dL 02/24/24 02/25/24 02/25/24 Range/Units 12:33 02:35 06:00 RBC 2.76 L (3.80-5.40) m/uL Hgb 8.1 L (11.4-16.0) gm/dL Hct 26.8 L (34.0-46.0) % MCHC 30.3 L (31.0-37.0) g/dL ABG pH 7.49 H (7.35-7.45) ABG pO2 66 L (83-108) mmHg ABG HCO3 32 H (21-25) mmol/L Sodium (137-145) mmol/L Carbon Dioxide (22-30) mmol/L BUN (7-17) mg/dL Creatinine (0.52-1.04) mg/dL Glucose (74-99) mg/dL POC Glucose (mg/dL) 168 H (70-110) mg/dL Calcium (8.4-10.2) mg/dL AST (14-36) U/L ALT (4-34) U/L Alkaline Phosphatase (38-126) U/L Total Protein (6.3-8.2) g/dL Albumin (3.5-5.0) g/dL 02/25/24 02/25/24 Range/Units 06:00 06:03 RBC (3.80-5.40) m/uL Hgb (11.4-16.0) gm/dL Hct (34.0-46.0) % MCHC (31.0-37.0) g/dL ABG pH (7.35-7.45) ABG pO2 (83-108) mmHg ABG HCO3 (21-25) mmol/L Sodium 133 L (137-145) mmol/L Carbon Dioxide 32 H (22-30) mmol/L BUN 77 H (7-17) mg/dL Creatinine 3.20 H (0.52-1.04) mg/dL Glucose 200 H (74-99) mg/dL POC Glucose (mg/dL) 225 H (70-110) mg/dL Calcium 8.2 L (8.4-10.2) mg/dL AST 50 H (14-36) U/L ALT 40 H (4-34) U/L Alkaline Phosphatase 174 H (38-126) U/L Total Protein 5.3 L (6.3-8.2) g/dL Albumin 2.3 L (3.5-5.0) g/dL - Imaging and Cardiology Chest x-ray: image reviewed Assessment and Plan Assessment: Triple-vessel coronary artery disease, non-STEMI this admission Acute heart failure with reduced ejection fraction, 20-25%, 35% on AFRICA New onset ischemic cardiomyopathy Moderate to severe mitral regurgitation on transthoracic echocardiogram, mild mitral regurgitation on AFRICA Acute on chronic kidney disease Acute anemia Hypertension Hyperlipidemia, treated, cholesterol 150, LDL 72.8 Hypothyroid, TSH 1.73 Diabetes mellitus, hemoglobin A1c 7.1% CVA Hepatitis as a child CKD Previous tobacco dependence with recent cessation Severe COPD, preoperative FEV1 27% of predicted Previous methamphetamine use with recent cessation Family history of coronary artery disease with sister having multiple stents Plan: Continue to maximize medical therapy with aspirin, statin, beta-alex, IV Lasix, Zaroxolyn Continue preoperative teaching Increase activity as tolerated, ambulate minimum 3 times daily, discussed with RN Encourage incentive spirometry use Aggressive risk factor management Plan is for off-pump coronary artery bypass surgery Monday, February 26, [address] Gillette Management of other comorbidities per internal medicine, cardiology, pulmonology, nephrology More recommendations to follow
[2024-02-25] MEDS ORDERED: MD COMMUNICATION TO PHARMACY 1 EACH MISC PO ONE (08:28)
--- NOTE | 2024-02-25 10:48 | P.PN ---
Subjective patient is seen for follow-up for acute kidney injury. Currently being diuresed. status post Lasix drip. serum creatinine at 3.2 today urine output at 2.3 L for 24 hours. No shortness of breath. Officer is present at bedside. Scheduled for CABG tomorrow. Objective - Vital Signs Vital signs: Vital Signs Temp 98.2 F 02/24/24 20:00 Pulse 90 02/25/24 08:05 Resp 18 02/25/24 00:00 BP 123/75 02/25/24 00:00 Pulse Ox 93 L 02/25/24 07:41 FiO2 Intake & Output 02/24/24 02/25/24 02/25/24 18:59 06:59 18:59 Intake Total 280 240 300 Output Total 1140 1200 Balance -860 -960 300 Weight 73.8 kg Intake: Oral 280 240 300 Output: Urine 1140 1200 Other: Voiding Method Indwelling Catheter Indwelling Catheter # Bowel Movements 1 4 - Exam patient is awake, comfortable, no acute distress Alert oriented 3 Examination of the heart S1 and S2 Examination of the lungs bilateral breath sounds are heard Abdomen is soft nontender Examination of lower extremities shows 1+ edema. OBEDIENCE TRAINER exam grossly intact - Labs CBC & Chem 7: 02/25/24 06:00 02/25/24 06:00 Labs: Abnormal Lab Results - Last 24 Hours (Table) 02/24/24 02/24/24 02/25/24 Range/Units 11:36 12:33 02:35 RBC (3.80-5.40) m/uL Hgb (11.4-16.0) gm/dL Hct (34.0-46.0) % MCHC (31.0-37.0) g/dL ABG pH 7.49 H (7.35-7.45) ABG pO2 66 L (83-108) mmHg ABG HCO3 32 H (21-25) mmol/L Sodium (137-145) mmol/L Carbon Dioxide (22-30) mmol/L BUN (7-17) mg/dL Creatinine (0.52-1.04) mg/dL Glucose (74-99) mg/dL POC Glucose (mg/dL) 195 H 168 H (70-110) mg/dL Calcium (8.4-10.2) mg/dL AST (14-36) U/L ALT (4-34) U/L Alkaline Phosphatase (38-126) U/L Total Protein (6.3-8.2) g/dL Albumin (3.5-5.0) g/dL Crossmatch 02/25/24 02/25/24 02/25/24 Range/Units 06:00 06:00 06:00 RBC 2.76 L (3.80-5.40) m/uL Hgb 8.1 L (11.4-16.0) gm/dL Hct 26.8 L (34.0-46.0) % MCHC 30.3 L (31.0-37.0) g/dL ABG pH (7.35-7.45) ABG pO2 (83-108) mmHg ABG HCO3 (21-25) mmol/L Sodium 133 L (137-145) mmol/L Carbon Dioxide 32 H (22-30) mmol/L BUN 77 H (7-17) mg/dL Creatinine 3.20 H (0.52-1.04) mg/dL Glucose 200 H (74-99) mg/dL POC Glucose (mg/dL) (70-110) mg/dL Calcium 8.2 L (8.4-10.2) mg/dL AST 50 H (14-36) U/L ALT 40 H (4-34) U/L Alkaline Phosphatase 174 H (38-126) U/L Total Protein 5.3 L (6.3-8.2) g/dL Albumin 2.3 L (3.5-5.0) g/dL Crossmatch See Detail 02/25/24 Range/Units 06:03 RBC (3.80-5.40) m/uL Hgb (11.4-16.0) gm/dL Hct (34.0-46.0) % MCHC (31.0-37.0) g/dL ABG pH (7.35-7.45) ABG pO2 (83-108) mmHg ABG HCO3 (21-25) mmol/L Sodium (137-145) mmol/L Carbon Dioxide (22-30) mmol/L BUN (7-17) mg/dL Creatinine (0.52-1.04) mg/dL Glucose (74-99) mg/dL POC Glucose (mg/dL) 225 H (70-110) mg/dL Calcium (8.4-10.2) mg/dL AST (14-36) U/L ALT (4-34) U/L Alkaline Phosphatase (38-126) U/L Total Protein (6.3-8.2) g/dL Albumin (3.5-5.0) g/dL Crossmatch Assessment and Plan Assessment: 1. Acute kidney injury secondary to ATN secondary to cardiorenal syndrome. Creatinine decreased to 3.0, increased to 3.3 today Creatinine as low as 0.98 dated March 01, 2022. No hydronephrosis noted on kidney ultrasound. Serologies negative. good urine output. status post Lasix drip 2. Acute on chronic systolic CHF with ejection fraction of 20 to 25% with moderate to severe mitral regurgitation and mild pulmonary hypertension. 3. Volume overload. Improving with diuresis. 4. Anemia. Iron deficiency noted. Status post IV iron. On Aranesp. GI follo wing. Status post blood transfusion this admission. Also received IV DDAVP. 5. Metabolic acidosis secondary to acute kidney injury. On oral bicarb. Stable. 6. Hypervolemic hyponatremia. Also component of hypertonicity from hyperglycemia. Better. 7. Urinary retention status post Saldaña catheter placement. On Flomax. Plan: continue current dose of IV Lasix Repeat labs in a.m.
[2024-02-25 11:39] LABS: Glucose,Whole Blood 87 mg/dL (70-110)
--- NOTE | 2024-02-25 12:08 | XR ---
EXAMINATION TYPE: XR chest 2V DATE OF EXAM: 02/25/2024 7:14 AM CLINICAL INDICATION:Female, 58 years old with history of pleural effusions; [facility] COMPARISON: 02/24/2024 TECHNIQUE: XR chest 2V. Frontal and lateral views of the chest.. FINDINGS: Lines/tubes/devices: EKG leads overlie the chest. No indwelling lines are seen. Loop recorder on the left. Cardiomediastinum: Cardiac silhouette appears stable, mildly enlarged Stable mediastinal silhouette. Partially calcified aorta. Vasculature: Mild pulmonary vascular congestion and diffuse interstitial prominence again noted, cou ld be related to edema or pneumonitis. Lungs/pleura: Stable mild left basilar pleural/parenchymal opacity. Right costophrenic angle is slightly obscured. No visualized pneumothorax. Bones/soft tissues: Osseous structures appear grossly intact as seen. IMPRESSION: 1. Cardiomegaly. 2. Persistent diffuse interstitial opacities and pleural effusions. Correlate clinically for edema v ersus infection.
--- NOTE | 2024-02-25 12:40 | P.PN ---
Subjective Progress Note Date: 02/25/24 Principal diagnosis: Coronary artery disease, CHF. The patient is seen today February 12, 2024 in follow-up on the selective care unit. She is currently sitting up in bed. Awake and alert in no acute distress. She is maintaining O2 saturation in the 90s on 3 L nasal cannula. She is afebrile. Hemodynamically stable. Today's chest x-ray reviewed reveals diffuse bilateral infiltrates with small effusion or early congestive heart failure. Hemoglobin 6.7. 1 unit of packed blood cells have been ordered. Platelets 362. White count 6.1. Sodium 131. Potassium 4.2. Bicarb 21. BUN 80. Creatinine 3.89. Glucose 286. She remains on. Antibiotics in the form of ceftriaxone. Remains on a Lasix drip at 5 mg an hour. Currently in a -178 mL balance. The patient is seen today February 13, 2024 in follow-up on the selective care unit. She is awake and alert in no acute distress. Sitting up in bed. Blood and urine cultures revealed no growth. White count 6.2. Hemoglobin 7.4. Platelets 01/05/1978. Sodium 133. Potassium 3.9. Bicarb 21. BUN 83. Creatinine 3.60. Glucose 154. She remains on a Lasix drip currently at 5 mg/h. She remains on a heparin drip. Receiving sodium bicarb tablets. Continued on bronchodilators. Continued on antibiotics in the form of ceftriaxone. She is currently in a negative balance. Voided 1 L today. The patient is seen today February 14, 2024 in follow-up on the selective care unit. She is currently sitting up in bed. Awake and alert in no acute distress. She is maintaining good O2 saturations in the 90s on 3 L/min per nasal cannula. She is afebrile. Hemodynamically stable. Follow-up chest x-ray continues to show diffuse bilateral infiltrate with small effusions. She is status post 1 unit of packed red blood cells this admission. Last hemoglobin 7.7. Sodium 135. Potassium 4.6. Bicarb 20. BUN 87. Creatinine 3.55. Glucose 358. She is continued on bronchodilators. Antibiotics in form of ceftriaxone. She remains on a Lasix drip at 10 mg/h. Receiving sodium bicarb tablets. Currently -688 mL balance. Nephrology is following. The patient is seen today February 15, 2024 in follow-up on the selective care unit. She is currently sitting up in bed awake and alert in no acute distress. She is maintaining O2 saturations in the mid 90s on 2 L/min per nasal cannula. She is afebrile. Hemodynamically stable. White count 6.8. Hemoglobin 8.6. Platelets 438. Sodium 135. Potassium 4.0. Bicarb 21. BUN 84. Creatinine 3.41. Glucose 171. She remains on a Lasix drip at 10 mg/h. Continued on a heparin drip. Plan to -1 L balance. Stress testing today reveals a large area of fixed defect involving all segments of the myocardium suggestive of remote ischemia. Could not exclude a tiny area of stress-induced reversibility within the apex. Reduced wall motion activity with ejection fraction of only 21%. Patient was seen and examined today on 02/16/2024 patient is feeling better today, continues to diurese with a Lasix drip, remains in negative fluid balance, patient underwent cardiac catheterization today and she was found to have severe triple-vessel coronary artery disease, now she is being evaluated by surgery, patient does have severe LV dysfunction, she is definitely high surgical risk, but no absolute contraindication to surgery.Basic metabolic profile is normal BUN is 85 creatinine 3.58 however the patient may require hemodialysis, and she will need nephrology clearance she will also need a bedside spirometry/FEV1 for preoperative pulmonary clearance in the meantime we will continue diuretics/Lasix drip Patient was reevaluated today on 02/17/2024, remains on Lasix drip, remains in ne gative fluid balance, patient is very well aware that she had abnormal cardiac catheterization and now she is being evaluated for possible myocardial revascularization. Patient remains on oxygen at 2 L/min and her O2 sats is 97%, her PFT showed severe obstructive lung disease, however not severe enough to not consider myocardial revascularization if the patient is cleared by other consultants including nephrology and cardiology. Patient has been a smoker over the years, she had at least a [id number] smoking history. Remind you patient had a PFT with chest x-ray still showing evidence of pulmonary edema which will definitely compromise her PFT will likely reflect more restriction than ob structive lung disease. WBC count today is 4.9 hemoglobin 7.7 electrolytes are normal BUN is 85 creatinine 3.59 Patient was reevaluated today on 02/18/2024, remains on Lasix drip, 10 mg/h, remains in constant negative fluid balance, chest x-ray today is definitely showing improvement but nonetheless her pulmonary edema is not completely resolved. Patient was being considered for CABG however the plan is presently on hold because of her overall pulmonary status and possibly the patient could benefit from more optimization of her congestive heart failure. In the meantime she seems to be doing better with the Lasix drip. Patient is also maintained on bronchodilators for her underlying COPD. Progress note dated February 19, 2024. The patient is seen today in room 385. She was scheduled to have bypass grafting today, but the surgery was canceled. She is currently on 3 L of oxygen by nasal cannula. She continues on a Lasix drip at 10 mg an hour. I did have the opportunity to review her lung function. Her FEV1 is 0.77 L or 27% of predicted. Based on that number alone, without having to evaluate the MVV, or the RV/TLC ratio, the patient is at high increased operative risk. Current laboratory data includes a white count 5.1, hemoglobin 8.3, hematocrit 26.6, and a platelet count of 403,000. Sodium 137, potassium 3.5, chlorides 101, CO2 28, BUN 82, and creatinine 3.34. Calcium is 8.2. Nasal screen was positive for non-MRSA staph. Chest x-ray is consistent with mild CHF. The patient is seen today February 20, 2024 in follow-up on the selective care unit. She is currently sitting up in bed. Awake and alert in no acute distress. She is maintaining O2 saturations in the 90s on 3 L/min per nasal cannula. She remains on a Lasix drip at 10 mg/h. Currently net -1 L balance. White count 4.8. Hemoglobin 7.8. Platelets 309. Sodium 132. Potassium 3.7. Bicarb 28. BUN 84. Creatinine 3.31. Glucose 240. She remains on bronchodilators. Heparin for DVT prophylaxis. She has been worked up for possible coronary artery bypass surgery once she recovers from her acute illness. The patient is seen today February 21, 2024 in follow-up on the selective care unit. She is awake and alert in no acute distress. Maintaining good O2 saturations in the 90s on 2 L/min per nasal cannula. She is continued on Lasix drip at 10 mg/h. This x-ray continues to show interstitial pulmonary edema with small left greater than right pleural effusions. She is status post 1 unit of packed red blood cells this admission. Current hemoglobin 8.2. Platelets 301. White count 5.5. Sodium 133. Potassium 3.9. Bicarb 30. BUN 84. Creatinine 3.05. Glucose 108. Remains on bronchodilators. Heparin for DVT prophylaxis. She is currently in a +159 ml balance. The patient is seen today February 22, 2024 in follow-up on the selective care unit. She is resting comfortably in bed. Awake and alert in no acute distress. Denies any chest pain. No worsening shortness of breath, cough or congestion. Maintaining good O2 saturations in the mid 90s on 2 L/min per nasal cannula. She is afebrile. Hemodynamically stable. She is maintained on DuoNeb inhalations, Pulmicort and Perforomist inhalations, Robitussin as needed. Heparin for DVT prophylaxis. She is continued on diuretics. Currently in a - 800 mL balance. Glucose 269. Progress note dated February 23, 2024. The patient is seen today in room 385. She is resting comfortably. She is on 2 L. She is not receiving any IV fluids. Current labs include a white count 4.8, hemoglobin 7.7, hematocrit 25.6, and a platelet count of 294,000. Sodium 131, potassium 4.3, chlorides 97, CO2 30, BUN 82, creatinine 3.32. Glucose is 164. Calcium 7.8, and magnesium 1.9. The nasal swab, on February 15, was positive for non-MRSA, staph. A chest x-ray today shows similar multifocal airspace opacities. Progress note dated February 24, 2024. This is a 58-year-old female seen today in room 385. She is on oxygen at 2 L. She is not receiving any IV fluids. Today, respiratory was kind enough to repeat spirometry. Her FEV1, prebronchodilator, was 0.71 L. Her FEV1 postbronchodilator was 0.83 L. These lung function are very similar to the prio r lung function, that was done a few days ago. Clinically, the patient's respiratory status appears to be stable. She is satting well on 2 L. She is not manifesting any signs or symptoms of respiratory difficulty or distress. Current laboratory data includes a white count 6.1, hemoglobin 8, hematocrit 26.8, and a normal platelet count. Sodium 134, potassium 3.8, chlorides 99, CO2 30, BUN 78, and creatinine 3.24. Glucose Was 195. Calcium 8.3, Magnesium Is 1.9. Chest x-ray is essentially unchanged, and reveals evidence of cardiomegaly. Progress note dated February 25, 2024. 58-year-old female who apparently scheduled to have open heart surgery tomorrow, February 25. The patient is currently on 2 L of oxygen. No IV fluids. She has been relatively stable over the last 2 or 3 days. The patient had repeat spirometry yesterday, which showed a FEV1, postbronchodilator, of 0.83. Which is only slightly better than her previous FEV1. Certainly, she would be at high risk, for general anesthesia. Current laboratory data includes a white count 4.7, hemoglobin 8.1, hematocrit 26.8, and a normal platelet count. Coagulation studies are normal. Sodium 133, potassium 4.3, chloride 99, CO2 32, BUN 77, creatinine 3.20. Glucose is 87. AST is 50. ALT is 40. Albumin is 2.3. Chest x-ray shows cardiomegaly, with the persistent diffuse interstitial changes. Objective - Vital Signs Vital signs: Vital Signs Temp 97.9 F 02/25/24 08:00 Pulse 88 02/25/24 11:22 Resp 18 02/25/24 08:00 BP 119/70 02/25/24 08:00 Pulse Ox 92 L 02/25/24 08:00 FiO2 Intake & Output 02/24/24 02/25/24 02/25/24 18:59 06:59 18:59 Intake Total 280 240 300 Output Total 1140 1200 Balance -860 -960 300 Weight 73.8 kg Intake: Oral 280 240 300 Output: Urine 1140 1200 Other: Voiding Method Indwelling Catheter Indwelling Catheter Indwelling Catheter # Bowel Movements 1 4 - Exam No acute distress, oriented 3. The patient is currently on 2 L of oxygen. HEENT examination is grossly unremarkable. Mucous membranes are moist. No oral lesions. Neck supple. Full range of motion. No adenopathy thyromegaly or neck vein dist ention. Cardiovascular examination reveals regular rhythm rate. S1-S2 normal. No S3 or S4. No discernible murmur noted. Heart rate 88 bpm. Lungs reveal scattered rhonchi and crackles. Breath sounds are otherwise equal. No wheezes. 2 L saturation is 92 % Abdomen soft bowel sounds are heard. No masses or tenderness. Extremities are intact. No cyanosis clubbing or edema. Skin is without rash or lesion. Neurologic examination is brief but nonfocal. - Labs CBC & Chem 7: 02/25/24 06:00 02/25/24 06:00 Labs: Abnormal Lab Results - Last 24 Hours (Table) 02/24/24 02/25/24 02/25/24 Range/Units 12:33 02:35 06:00 RBC (3.80-5.40) m/uL Hgb (11.4-16.0) gm/dL Hct (34.0-46.0) % MCHC (31.0-37.0) g/dL ABG pH 7.49 H (7.35-7.45) ABG pO2 66 L (83-108) mmHg ABG HCO3 32 H (21-25) mmol/L Sodium (137-145) mmol/L Carbon Dioxide (22-30) mmol/L BUN (7-17) mg/dL Creatinine (0.52-1.04) mg/dL Glucose (74-99) mg/dL POC Glucose (mg/dL) 168 H (70-110) mg/dL Calcium (8.4-10.2) mg/dL AST (14-36) U/L ALT (4-34) U/L Alkaline Phosphatase (38-126) U/L Total Protein (6.3-8.2) g/dL Albumin (3.5-5.0) g/dL Crossmatch See Detail 02/25/24 02/25/24 02/25/24 Range/Units 06:00 06:00 06:03 RBC 2.76 L (3.80-5.40) m/uL Hgb 8.1 L (11.4-16.0) gm/dL Hct 26.8 L (34.0-46.0) % MCHC 30.3 L (31.0-37.0) g/dL ABG pH (7.35-7.45) ABG pO2 (83-108) mmHg ABG HCO3 (21-25) mmol/L Sodium 133 L (137-145) mmol/L Carbon Dioxide 32 H (22-30) mmol/L BUN 77 H (7-17) mg/dL Creatinine 3.20 H (0.52-1.04) mg/dL Glucose 200 H (74-99) mg/dL POC Glucose (mg/dL) 225 H (70-110) mg/dL Calcium 8.2 L (8.4-10.2) mg/dL AST 50 H (14-36) U/L ALT 40 H (4-34) U/L Alkaline Phosphatase 174 H (38-126) U/L Total Protein 5.3 L (6.3-8.2) g/dL Albumin 2.3 L (3.5-5.0) g/dL Crossmatch Assessment and Plan Assessment: Severe triple-vessel coronary artery disease, with anticipated CABG pending. Acute non-ST segment elevation myocardial infarction. Acute hypoxemic respiratory failure secondary to CHF exacerbation. Possible community-acquired bibasilar pneumonia. Ischemic cardiomyopathy with an ejection fraction of 20 to 25%. History of severe mitral valve regurgitation. Normocytic, normochromic anemia. Acute kidney injury. Non-anion gap metabolic acidosis. COPD, severe, with an FEV1 that is 0.77 L or 27% of predicted. Diabetes mellitus. Hypertension. Hyperlipidemia. History of CVA. History of hypothyroidism. History of fibromyalgia. History of GERD. Previous history of tobacco use. Plan: Plan dated February 19, 2024. The patient continues on oxygen, at 3 L. She continues on Lasix drip at 10 mg an hour. The patient was boarded to have surgery today, but the surgery was canceled. The patient's lung function is very poor, with an FEV1 that is 0.77 L or 27% of predicted. Based on that number alone, the patient is at high increased operative risk. The patient continues on bronchodilators, as well as her other medications. Additional recommendations and suggestions are forthcoming. Labs, x-rays, medications are reviewed. We will continue to follow make recommendations. The bronchodilators that she is currently will be improved. Plan dated February 23, 2024. The patient appears to be much more stable from a respiratory status standpoint. She will have repeat PFTs. Labs, x-rays, medications are reviewed. Earlier spirometry showed an FEV1 that was 0.77 L or 27% of predicted. Labs, x-rays, and medications are all reviewed. We will continue to follow the patient, make recommendations along the way. Prognosis is guarded. She continues on bronchodilators. Plan dated February 24, 2024. The patient had repeat spirometry today. Her lung function are marginally improved, after bronchodilator. Previous FEV1 was .77 L. Today's postbronchodilator FEV1 is 0.83 L. The patient continues on appropriate bronchodilators. The patient's at high increased operative risk, based on her lung function. Having said that, on 2 L, appears relatively comfortable. Her saturations are in the low to mid 90s. Additional recommendations and suggestions are forthcoming. Prognosis is guarded. She apparently is scheduled to have open heart surgery on Monday, next week. Plan dated February 25, 2024. The patient is seen today in room 385. She continues on oxygen at 2 L. Labs, x-rays, and medications are reviewed. Apparently the patient is scheduled to have open heart surgery tomorrow. Her FEV1 is 0.77 L which is 27% of predicted. I repeat spirometry showed an FEV1 that was 0.83 L. Labs, x-rays, and medications are reviewed. We will continue to follow the patient, make recommendations along the way. Prognosis is currently guarded. Time with Patient: Less than 30
[2024-02-25 16:38] LABS: Glucose,Whole Blood 132 mg/dL (70-110)
--- NOTE | 2024-02-25 16:48 | P.PN ---
Subjective Progress Note Date: 02/25/24 HISTORY OF PRESENT ILLNESS: This is a 58-year-old female with a past medical history significant for former nicotine dependence, hypertension, CVA, hypothyroidism, and diabetes. Patient follows in the office with Dr. Saunders and was last seen in May 2023. We have been asked to see the patient in consultation for non-STEMI and CHF. Patient examined at the bedside in the emergency room. Patient is currently incarcerated and there is a industrial sales manager at the bedside. Patient states she has been feeling short of breath and feeling weak. She states this started about 2 days ago. She states that she was in court and afterwards they had to use a wheelchair to get her back into the vehicle as she was too weak to walk. She also reports feeling dizzy and having pounding in her chest. She reports a sl ight cough. She denied having a fever previously to her knowledge. However patient was febrile this morning with a temperature of 100.2. She also reports lower extremity edema that started in the middle of December. She reports nausea yesterday that was relieved with Zofran. Patient was found to be anemic on admission with a hemoglobin of 7.7. Repeat 7.1. Last hemoglobin was back in 2021 but was normal at 12.3. The patient denies a history of anemia. Unsure if this anemia is new or has been present for a while as her last blood work was not since 2021. She denies any blood in her stool or urine. She does report decreased urine output. Patient was also found to have acute kidney injury with a creatinine of 2.96. Back in 2021, patient's kidney function was within normal limits. Patient was also found to have elevated troponins and was started on IV heparin. She denied having any chest pain or pressure. Patient is a former cigarette smoker and has not smoked in 55 days since being in detention. She denies alcohol abuse many years ago but nothing recently. She denies drug use i ncluding marijuana. DIAGNOSTICS: - EKG reveals sinus mechanism with left bundle branch block. - Chest xray consolation of findings favor CHF over pneumonia. Correlate clinically. Underlying COPD. Loop recorder device seen. Bilateral consolidation and small effusion with diffuse interstitial pattern.. - Laboratory data: WBC 6.2. Hemoglobin 7.1. Platelet count 300. Sodium 133. Potassium 4.9. BUN 56. Creatinine 2.96. AST 55. ALT 35. proBNP 25,100. Troponin 1.290. 1.760. 2.210. - Current home cardiac medications include Lipitor 20 mg at night. - Most recent echocardiogram obtained in February 2022 revealed ejection fraction 55 to 60%, mild MR, mild TR - Patient underwent dobutamine stress test in March 2023 at the office which was negative for ischemia 02/08/2024 Patient examined this morning at the bedside. Patient states her shortness of breath has improved today. She complains of mild chest discomfort when she feels short of breath. She states the chest pain is worse with deep inspiration. Her lower extremity edema has improved from yesterday. She has been transition to IV Lasix drip per nephrology. Echocardiogram completed revealing ejection fraction 20 to 25%, mild pulm hypertension, moderate to severe mitral regurgitation, mild aortic regurgitation, trace to mild tricuspid regurgitation and small pericardial effusion. 02/09/2024 Patient examined this morning at the bedside. Patient continues to report shortness of breath at the time of examination. She reports that she developed a cough also today. She reports chest discomfort that is worse with deep ins piration. She remains on a Lasix drip at 5 mg an hour. Creatinine 3.41. Hemoglobin 7.4. Blood pressure is stable. Telemetry reveals sinus mechanism. 02/10/2024 Patient examined this morning at the bedside. Patient continues to report shortness of breath. She continues to have a cough. She denies any chest discomfort at the time of examination. She remains on a Lasix drip at 5 mg an hour. Creatinine today is 3.44. Hemoglobin 7.2. 02/11/2024 Patient examined this morning at the bedside. Patient reports that she slept well overnight. She currently denies any chest pain or pressure. She reports improvement in her shortness of breath and also with her cough. Renal function worsened today at 3.71. She remains on IV Lasix at 10 mg an hour. 02/11 Patient seen and examined. Patient still minutes to significant shortness breath mainly with exertion. She occasionally has some chest tightness however not clearly associated with exertion and more feels like she cannot take a deep breath in. Creatinine stable at 3.8. She is receiving 1 unit of packed red blood cell for hemoglobin 6.7. Remains on IV diuretics. 02/12 Patient is seen today in follow-up. She states she may feel a little bit better after blood transfusion but continues to feel tired, shortness of breath have some chest pain with exertion. Blood pressure 125/80, heart rate between 72 and 91, pulse ox 95% on room air. Repeat blood work reveals hemoglobin 7.4. BUN 83 creatinine 2.6. Discussed option of stress test in the next 1 to 2 days and patient is agreeable for this. 02/13 Patient complains of feeling tired, upset stomach. She has shortness of breath with minimal activity. She had an episode of chest pain last night but none now. Renal function is worsening with BUN of 87 creatinine 3.55. Sodium 135, potassium 4.6. 02/14 Lexiscan Cardiolite stress test came back abnormal with large area of fixed defect involving all segments of the myocardium suggestive of remote ischemia. Cannot exclude a tiny area of stress induced reversibility within the apex. Reduced wall motion activity with EF of only 21%. Results reviewed with patient and next option with cardiac catheterization discussed with the patient with understanding that patient does have abnormal renal function and would need to be cleared by nephrology. Dr. Berman will contact Dr. Lane regarding possible cardiac catheterization. Blood pressure 143/84, heart rate 93, pulse ox 95% on 2 L nasal cannula. Patient remains on IV Lasix drip at 10 mg/h. She has a negative fluid balance. She is on a fluid restriction of 1200 mL 02/15 Patient underwent cardiac catheterization today with Dr. Lane which revealed calcified coronary arteries. Severe triple-vessel disease. Right dominance. Mildly elevated LVEDP. She has been seen by CTS with tentative plan for CABG on Monday pending results of AFRICA. Patient will be scheduled tomorrow for AFRICA with Dr. Berman. Blood pressure 113/59, heart rate 96, pulse ox 93% on 2 L nasal cannula. Repeat blood work reveals BUN 85 creatinine 3.58. 02/17 Yesterday, patient underwent AFRICA which revealed aortic valve tricuspid and functioning normally. Mitral valve structurally normal with mild central secondary mitral regurgitation. Pulmonary vein flow has systolic dominance. Tricuspid valve appears to be normal with mild tricuspid regurgitation. Intra- atrial septum is intact with no evidence of PFO. Left atrial appendage free of clot. LV EF 35% with global hypokinesis. Patient is followed by cardiothoracic surgery and also nephrology. If patient is requiring dialysis, plan would be for patient to start dialysis prior to open heart surgery. Patient remains on Lasix drip per nephrology. Patient has a negative fluid balance of 1322. Repeat blood work reveals hemoglobin is 7.9. BUN 82 creatinine 3.39. Mild elevation in liver function test. 02/20/2024 Patient examined this morning at bedside. Patient currently denies chest pain or pressure. She denies shortness of breath. She remains on IV Lasix infusion. Kidney function remained stable. 02/21/2024 Patient examined this morning at the bedside. Patient currently denies chest pain or pressure. She denies shortness of breath. Patient was on an IV Lasix infusion this morning. She has since been transitioned to IV push Lasix 60 mg every 12 hours per nephrology. Chest x-ray this morning revealed CHF with ongoing interstitial pulmonary edema. Small left greater than right pleural effusion also persist. 02/22/2024 Patient examined this morning at the bedside. Patient currently denies chest pain or pressure. She denies shortness of breath. She remains on IV Lasix 60 mg every 12 hours IV push. Labs from this morning are currently pending. 02/24/2024 No new cardiac symptoms, hemodynamically stable to be noted chest x-ray shows groundglass opacities in bilateral lungs. Kidney function stable, making urine with diuretics. Reports having shortness of breath today. 02/25/2024 No new cardiac symptoms, hemodynamically stable. Making urine, less short of breath as compared to yesterday PHYSICAL EXAM: VITAL SIGNS: Reviewed. GENERAL: Well-developed in no acute distress. HEENT: Head is normocephalic. Pupils are equal, round. Sclerae anicteric. Mucous membranes of the mouth are moist. Neck supple. No JVD or thyromegaly LUNGS: Respirations even and unlabored. Lungs essentially clear to auscultation bilaterally. HEART: Regular rate and rhythm. S1 and S2 heard. ABDOMEN: Soft. Nondistended. Nontender. EXTREMITIES: Normal range of motion. No clubbing or cyanosis. Peripheral pulses intact. No lower extremity edema NEUROLOGIC: Awake and alert. Oriented x 3. ASSESSMENT: Febrile illness Shortness of breath Non-STEMI Triple-vessel coronary artery disease Acute heart failure with reduced EF, 20 to 25% New onset cardiomyopathy, ischemic Left bundle branch block Acute kidney injury, renal function was fairly normal in 2021 Anemia, acute anemia versus anemia of chronic disease due to renal failure, duration of anemia/EDWINA unknown Moderate to severe mitral regurgitation on TTE, mild mitral regurgitation on AFRICA History of hypertension History of CVA x 2 Diabetes Hypothyroidism Former nicotine dependence Minimally elevated LFTs PLAN: Continue current cardiac medications Nephrology following. Continue IV Lasix 60 mg every 12 hours per nephrology Daily weights, accurate intake and output, and monitoring of kidney function CT surgery following. Plan for CABG when patient is medically optimized for surgical intervention. Patient tentatively scheduled for Monday, February 26, 2024 Further recommendations pending patient course Objective - Vital Signs Vital signs: Vital Signs Temp 97.9 F 02/25/24 08:00 Pulse 86 02/25/24 15:17 Resp 18 02/25/24 14:00 BP 101/59 02/25/24 12:00 Pulse Ox 93 L 02/25/24 12:00 FiO2 Intake & Output 02/24/24 02/25/24 02/25/24 18:59 06:59 18:59 Intake Total 280 240 480 Output Total 1140 1200 725 Balance -860 -960 -245 Weight 73.8 kg Intake: Oral 280 240 480 Output: Urine 1140 1200 725 Other: Voiding Method Indwelling Catheter Indwelling Catheter Indwelling Catheter # Bowel Movements 1 4 - Labs CBC & Chem 7: 02/25/24 06:00 02/25/24 06:00 Labs: Abnormal Lab Results - Last 24 Hours (Table) 02/25/24 02/25/24 02/25/24 Range/Units 02:35 06:00 06:00 RBC 2.76 L (3.80-5.40) m/uL Hgb 8.1 L (11.4-16.0) gm/dL Hct 26.8 L (34.0-46.0) % MCHC 30.3 L (31.0-37.0) g/dL Sodium (137-145) mmol/L Carbon Dioxide (22-30) mmol/L BUN (7-17) mg/dL Creatinine (0.52-1.04) mg/dL Glucose (74-99) mg/dL POC Glucose (mg/dL) 168 H (70-110) mg/dL Calcium (8.4-10.2) mg/dL AST (14-36) U/L ALT (4-34) U/L Alkaline Phosphatase (38-126) U/L Total Protein (6.3-8.2) g/dL Albumin (3.5-5.0) g/dL Crossmatch See Detail 02/25/24 02/25/24 02/25/24 Range/Units 06:00 06:03 16:37 RBC (3.80-5.40) m/uL Hgb (11.4-16.0) gm/dL Hct (34.0-46.0) % MCHC (31.0-37.0) g/dL Sodium 133 L (137-145) mmol/L Carbon Dioxide 32 H (22-30) mmol/L BUN 77 H (7-17) mg/dL Creatinine 3.20 H (0.52-1.04) mg/dL Glucose 200 H (74-99) mg/dL POC Glucose (mg/dL) 225 H 132 H (70-110) mg/dL Calcium 8.2 L (8.4-10.2) mg/dL AST 50 H (14-36) U/L ALT 40 H (4-34) U/L Alkaline Phosphatase 174 H (38-126) U/L Total Protein 5.3 L (6.3-8.2) g/dL Albumin 2.3 L (3.5-5.0) g/dL Crossmatch
[2024-02-25 20:25] LABS: Glucose,Whole Blood 302 mg/dL (70-110)
--- NOTE | 2024-02-25 22:47 | P.PN ---
Subjective This is a pleasant 58 years old female with past medical history of multiple medical problems as below She has been incarcerated for 52 days, there is officer at bedside. Patient presents because of shortness of breath and exertional dyspnea has for the last 2 days, she states she hears herself wheezing when she lies down. Currently she is breathing quietly. She is complaining for mild chest pain on the left side, nonradiating nonspecific, feels much better now and very mild. She has occasional cough but no phlegm. Also she is complaining from upset stomach but no diarrhea or vomiting She complains from decreased urination but no dysuria or urgency. She has mild headache feels generally weak but no dizziness or blurry vision. She used to smoke half pack per day before she got incarcerated No alcohol or illicit drugs. She follow-up with her branch operations manager Dr. Donal Herrera and bacteriology research assistant Dr. Babb who examined her about 2 months ago where she has some mild ulcer In the bottom of her right total This morning patient has low-grade fever 100.2 She is also mildly tachypneic around 22 She is saturating 93% on 2 L oxygen via nasal cannula Labs reviewed showing hemoglobin of 7.7, rest of CBC is unremarkable BMP liver enzymes not elevated. INR 0.9. Lactic 0.9 proBNP is elevated 25 100 EKG showing sinus rhythm at [address]-T changes, no left bundle branch block 02/17/2024 --Patient is seen and evaluated in room at bedside; remains on Lasix drip, remains in negative fluid balance - patient underwent cardiac catheterization which revealed severe triple-vessel coronary artery disease and now she is being evaluated for possible myocardial revascularization. Patient remains on oxygen at 2 L/min and her O2 sats is 97%, her PFT showed severe obstructive lung disease, however not severe enough to not consider myocardial revascularization if the patient is cleared by other consultants including nephrology and cardiology. Patient has been a smoker over the years, she had at least a [id number] smoking history. Remind you patient had a PFT with chest x-ray still showing evidence of pulmonary edema which will definitely compromise her PFT will likely reflect more restriction than obstructive lung disease. WBC count today is 4.9 hemoglobin 7.7 electrolytes are normal BUN is 85 creatinine 3.59 02/18/2024 Patient is seen and evaluated in room at bedside; sitting up in bed; ports stable breathing - patient underwent AFRICA which revealed aortic valve tricuspid and functioning normally. Mitral valve structurally normal with mild central secondary mitral regurgitation. Pulmonary vein flow has systolic dominance. Tricuspid valve appears to be normal with mild tricuspid regurgitation. Intra-atrial septum is intact with no evidence of PFO. Left atrial appendage free of clot. LV EF 35% with global hypokinesis. -- Patient is followed by cardiothoracic surgery and also nephrology. Nephrology not recommending any indication or need for hemodialysis. Patient remains on Lasix drip per nephrology. Patient has a negative fluid balance of 1322. Repeat blood work reveals hemoglobin is 7.9. BUN 82 creatinine 3.39. Mild elevation in liver function test. -Plan for surgery once clinically optimized 02/19/2024 Patient looks more awake than admission, sitting up in bed. Halfway officers at bedside Mentation at baseline. She talks freely. Denies chest pain or dyspnea at rest On presentation patient was found acute CHF and non-STEMI, workup showing triple-vessel coronary artery disease and patient will require bypass procedure with cardiothoracic surgery team on the case once medically optimized. Patient currently with fluid overload on Lasix drip, on admission it was 5 mg/h, currently increased to 10 mg/h. She is making around 1 L of urine output by yesterday. Saldaña catheter in place. She is also on aspirin 81 mg Hemoglobin 8.5, creatinine 3.3 compared to 2.7 on admission with baseline 0.9- 1.2. Liver enzymes mildly elevated since admission. 02/20/2024 Patient came from long-term for an NSTEMI. Workup showing severe triple-vessel coronary artery disease currently being evaluated by cardiothoracic surgery team for possible cardiac bypass procedure. However she needs optimization and she is currently kept on IV Lasix 10 mg, creatinine went up 3.3 today. Programming Coordinator recommended to continue with Lasix drip still tomorrow Patient diabetic, she is on Levemir 8 units twice daily, she is developing episodes of hypoglycemia we will going to lower the dose to 6 units twice daily She is also on aspirin 325 mg 02/21/2024 Patient continues to improve today, she is more energetic, less dyspneic Lasix drip switched to IV Lasix 60 mg twice daily Cardiothoracic surgery team with plan for valve replacement surgery on this coming Sunday 02/25 Sugars better controlled with no hyperglycemia on Levemir 6 units twice daily 02/22/2024 Patient breathing is stable, denies chest pain No new complaint Will go check breathing tomorrow Plan for cardiac surgery on Monday02/23/2024 Patient awake alert She feels more weak today Creatinine is up Plan for cardiac surgery early next week 02/24/2024 Patient feels weak No chest pain or dyspnea Patient anticipates surgery on Monday equal employment opportunity officer at bedside 02/25/2024 Patient awake alert looks comfortable Generally weak Creatinine stable around 3.2 Plan for bypass cardiac surgery tomorrow, patient is agreeable to the current plan Objective - Vital Signs Vital signs: Vital Signs Temp 98.2 F 02/24/24 20:00 Pulse 88 02/25/24 11:22 Resp 18 02/25/24 08:00 BP 123/75 02/25/24 00:00 Pulse Ox 93 L 02/25/24 07:41 FiO2 Intake & Output 02/24/24 02/25/24 02/25/24 18:59 06:59 18:59 Intake Total 280 240 300 Output Total 1140 1200 Balance -860 -960 300 Weight 73.8 kg Intake: Oral 280 240 300 Output: Urine 1140 1200 Other: Voiding Method Indwelling Catheter Indwelling Catheter Indwelling Catheter # Bowel Movements 1 4 - Exam -GENERAL: The patient is alert and oriented x3, not in any acute distress. Well developed, well nourished. Generally weak and lethargic HEENT: Pupils are round and equally reacting to light. EOMI. No scleral icterus. No conjunctival pallor. Normocephalic, atraumatic. No pharyngeal erythema. No thyromegaly. CARDIOVASCULAR: S1 and S2 present. No murmurs, rubs, or gallops. -PULMONARY: Chest is clear to auscultation, no wheezing , no crackles. Tachypnea -ABDOMEN: Soft, nontender, nondistended, normoactive bowel sounds. No palpable organomegaly. Saldaña catheter in place MUSCULOSKELETAL: No joint swelling or deformity. -EXTREMITIES: No cyanosis, clubbing, 1+ bilateral pitting leg edema. NEUROLOGICAL: Gross neurological examination did not reveal any focal deficits. SKIN: No rashes. no petechiae. - Labs CBC & Chem 7: 02/25/24 06:00 02/25/24 06:00 Labs: Abnormal Lab Results - Last 24 Hours (Table) 02/24/24 02/25/24 02/25/24 Range/Units 12:33 02:35 06:00 RBC (3.80-5.40) m/uL Hgb (11.4-16.0) gm/dL Hct (34.0-46.0) % MCHC (31.0-37.0) g/dL ABG pH 7.49 H (7.35-7.45) ABG pO2 66 L (83-108) mmHg ABG HCO3 32 H (21-25) mmol/L Sodium (137-145) mmol/L Carbon Dioxide (22-30) mmol/L BUN (7-17) mg/dL Creatinine (0.52-1.04) mg/dL Glucose (74-99) mg/dL POC Glucose (mg/dL) 168 H (70-110) mg/dL Calcium (8.4-10.2) mg/dL AST (14-36) U/L ALT (4-34) U/L Alkaline Phosphatase (38-126) U/L Total Protein (6.3-8.2) g/dL Albumin (3.5-5.0) g/dL Crossmatch See Detail 02/25/24 02/25/24 02/25/24 Range/Units 06:00 06:00 06:03 RBC 2.76 L (3.80-5.40) m/uL Hgb 8.1 L (11.4-16.0) gm/dL Hct 26.8 L (34.0-46.0) % MCHC 30.3 L (31.0-37.0) g/dL ABG pH (7.35-7.45) ABG pO2 (83-108) mmHg ABG HCO3 (21-25) mmol/L Sodium 133 L (137-145) mmol/L Carbon Dioxide 32 H (22-30) mmol/L BUN 77 H (7-17) mg/dL Creatinine 3.20 H (0.52-1.04) mg/dL Glucose 200 H (74-99) mg/dL POC Glucose (mg/dL) 225 H (70-110) mg/dL Calcium 8.2 L (8.4-10.2) mg/dL AST 50 H (14-36) U/L ALT 40 H (4-34) U/L Alkaline Phosphatase 174 H (38-126) U/L Total Protein 5.3 L (6.3-8.2) g/dL Albumin 2.3 L (3.5-5.0) g/dL Crossmatch Assessment and Plan Assessment: Acute systolic CHF exacerbation, ejection fraction: 20 to 25% non-STEMI, ekg New left bundle branch block, secondary to triple-vessel coronary artery disease requiring CABG Mild hypoxic respiratory failure, improved Acute kidney injury on chronic kidney disease, nonoliguric Acute on chronic anemia of chronic disease Acute urinary tract infection, urine culture showing skin or genital kwesi. 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 Labs and medication were reviewed.. Continue same treatment. Continue with symptomatic treatment. Resume home medication. Monitor labs and vitals. DVT and GI prophylaxis. Further recommendations as per clinical course of the patient DVT prophylaxis: heparin GI Prophylaxis: Pepcid Prognosis is guarded given her multiple disease of the heart kidneys
[2024-02-26 02:15] LABS: Glucose,Whole Blood 354 mg/dL (70-110)
[2024-02-26 03:59] LABS: Glucose,Whole Blood 359 mg/dL (70-110)
[2024-02-26] MEDS: ASPIRIN 325 MG TAB PO ONE (04:34)
[2024-02-26] MEDS: ATORVASTATIN 10 MG TAB PO ONE (04:34)
[2024-02-26] MEDS: METOPROLOL TARTRATE 12.5 MG TAB PO ONE (04:34)
[2024-02-26] MEDS ORDERED: CARDIOPLEGIC SOLN (K+ 16 MEQ/L 1,000 ML with SOD BICARB SYR 8.4% (1 MEQ/ML) 20 ML, LIDO... PERFUSION NR (05:00)
[2024-02-26] MEDS ORDERED: MANNITOL 25% 12.5 GM/50 ML VIAL IV ONE ×2 (05:00)
[2024-02-26] MEDS ORDERED: PROTAMINE SULFATE 250 MG in EMPTY BAG 1 BAG IV ONE (05:00)
[2024-02-26] MEDS ORDERED: ALBUMIN HUMAN 5% 500 ML in EMPTY BAG 1 BAG IVPB ONE ×6 (05:00)
[2024-02-26] MEDS ORDERED: PHENYLEPHRINE 40 MG in SODIUM CHLORIDE 0.9% 250 ML IV ONE (05:00)
[2024-02-26] MEDS ORDERED: CALCIUM CHLORIDE 100 MG/ML 10 ML SYRINGE IVP ONE (05:00)
[2024-02-26] MEDS ORDERED: SODIUM BICARB 8.4% 50 ML SYR (1 MEQ/ML) IV ONE (05:00)
[2024-02-26] MEDS ORDERED: NITROGLYCERIN-D5W PMX 50 MG in DEXTROSE/WATER 1 250ML.BAG IV SCH (05:00)
[2024-02-26] MEDS ORDERED: HEPARIN SODIUM,PORCINE (1 ML) 5,000 UNIT in SODIUM CHLORIDE 0.9% 500 ML 500 ML IV ONE (05:00)
[2024-02-26] MEDS ORDERED: CHLORHEXIDINE GLUCONATE 15 ML CUP MUCOUS MEM ONE (05:00)
[2024-02-26] MEDS ORDERED: ALBUMIN HUMAN 25% 50 ML in EMPTY BAG 1 BAG IVPB ONE (05:00)
[2024-02-26] MEDS ORDERED: TRANEXAMIC ACID 2,000 MG in SODIUM CHLORIDE 0.9% 80 ML IV ONE (05:00)
[2024-02-26] MEDS ORDERED: PAPAVERINE 360 MG in SODIUM CHLORIDE 0.9% 90 ML IV ONE (05:00)
[2024-02-26] MEDS ORDERED: PHENYLEPHRINE 10 MG/ML VIAL IV ONE (05:00)
[2024-02-26] MEDS ORDERED: MAGNESIUM SULFATE 16.24 MEQ in EMPTY SYRINGE 1 SYR IV ONE (05:00)
[2024-02-26] MEDS ORDERED: DILTIAZEM 125 MG in SODIUM CHLORIDE 0.9% 100 ML IV SCH (05:00)
[2024-02-26] MEDS ORDERED: NOREPINEPHRINE 4 MG in SODIUM CHLORIDE 0.9% 250 ML IV SCH (05:00)
[2024-02-26] MEDS ORDERED: CLEVIDIPINE BUTYRATE 25 MG in EMPTY BAG 1 BAG IV SCH (05:00)
[2024-02-26] MEDS ORDERED: PROTAMINE SULFATE 10 MG/ML 25 ML VIAL IV ONE ×2 (05:00→07:51)
[2024-02-26] MEDS ORDERED: HEPARIN SODIUM 1,000 UN/ML (10ML VL) IV ONE (05:00)
[2024-02-26] MEDS ORDERED: NITROGLYCERIN-D5W PMX 25 MG/250 ML BTL IV ONE (05:00)
[2024-02-26] MEDS ORDERED: ceFAZolin 1,000 MG in SODIUM CHLORIDE 0.9% IRRIGATIO 1,000 ML IRRIGATION ONE (05:00)
[2024-02-26] MEDS ORDERED: LACTATED RINGERS 1,000 ML IV SCH (05:00)
[2024-02-26] MEDS ORDERED: INSULIN REGULAR 100 UNIT in SODIUM CHLORIDE 0.9% 100 ML IV SCH (05:00)
[2024-02-26 06:33] LABS: Glucose,Whole Blood 367 mg/dL (70-110)
[2024-02-26] MEDS: SODIUM CHLORIDE 0.9% 1,000 ML IV ONE (06:43)
[2024-02-26 07:47] LABS: Glucose,Whole Blood 319 mg/dL (70-110)
[2024-02-26] MEDS ORDERED: VECURONIUM 10 MG VIAL IV ONE (07:51)
[2024-02-26] MEDS ORDERED: fentaNYL (PF) 50 MCG/ML 50 ML VIAL ONE (07:51)
[2024-02-26] MEDS ORDERED: PROPOFOL 10 MG/ML 20 ML VIAL IV ONE (07:51)
[2024-02-26] MEDS ORDERED: INSULIN REGULAR 100 UNIT/ML VIAL (IV) ONE (07:51)
[2024-02-26] MEDS ORDERED: SODIUM CHLORIDE 0.9% IRRIG 1,000 ML BTL IRRIGATION ONE (07:51)
[2024-02-26] MEDS ORDERED: MIDAZOLAM HCL 10 MG/10 ML VIAL ONE (07:51)
[2024-02-26] MEDS ORDERED: HEPARIN SODIUM,PORCINE 10,000 UNIT/ML 1 ML VIAL ONE (07:51)
[2024-02-26] MEDS ORDERED: ALBUMIN HUMAN 5% (25gm) 500 ML VIAL IVPB ONE (07:51)
[2024-02-26 08:04] LABS: Glucose,Whole Blood 275 mg/dL (70-110)
[2024-02-26 08:22] LABS: Glucose,Whole Blood 238 mg/dL (70-110)
[2024-02-26 08:35] LABS: Glucose,Whole Blood 229 mg/dL (70-110)
[2024-02-26 08:54] LABS: Glucose,Whole Blood 168 mg/dL (70-110)
[2024-02-26 09:23] LABS: ABG Base Excess 4.1 mmol/L; ABG Glucose Whole Blood 101 mg/dL (75-99); ABG HCO3 30 mmol/L (21-25); ABG Ionized Calcium 4.6 mg/dL (4.5-5.3); ABG Lactic Acid Whole Blood 1.6 mmol/L (0.5-1.6); ABG Oxygen Saturation 99.1 % (94-97); ABG PCO2 51 mmHg (35-45); ABG PH 7.38 (7.35-7.45); ABG PO2 137 mmHg (83-108); ABG Potassium Whole Blood 3.3 mmol/L (3.4-4.5); ABG Sodium Whole Blood 140 mmol/L (135-146)
[2024-02-26] MEDS: ceFAZolin 1,000 MG in SODIUM CHLORIDE 0.9% 1,000 ML IRRIGATION ONE (10:00)
[2024-02-26] MEDS: SODIUM CHLORIDE 0.9% 500 ML 500 ML with HEPARIN SODIUM,PORCINE (1 ML) 5,000 UNIT IV ONE (10:00)
[2024-02-26] MEDS: PAPAVERINE 360 MG in SODIUM CHLORIDE 0.9% 90 ML IV ONE (10:00)
[2024-02-26 10:12] LABS: ABG Base Excess 3.2 mmol/L; ABG Glucose Whole Blood 101 mg/dL (75-99); ABG HCO3 29 mmol/L (21-25); ABG Ionized Calcium 4.6 mg/dL (4.5-5.3); ABG Lactic Acid Whole Blood 1.2 mmol/L (0.5-1.6); ABG Oxygen Saturation 98.9 % (94-97); ABG PCO2 49 mmHg (35-45); ABG PH 7.38 (7.35-7.45); ABG PO2 125 mmHg (83-108); ABG Potassium Whole Blood 3.2 mmol/L (3.4-4.5); ABG Sodium Whole Blood 139 mmol/L (135-146)
[2024-02-26 10:48] LABS: ABG Base Excess 3.7 mmol/L; ABG Glucose Whole Blood 78 mg/dL (75-99); ABG HCO3 29 mmol/L (21-25); ABG Hematocrit 26 % (34.0-46.0); ABG Ionized Calcium 4.6 mg/dL (4.5-5.3); ABG Lactic Acid Whole Blood 1.1 mmol/L (0.5-1.6); ABG Oxygen Saturation >99.4 % (94-97); ABG PCO2 43 mmHg (35-45); ABG PH 7.43 (7.35-7.45); ABG PO2 186 mmHg (83-108); ABG Potassium Whole Blood 3.9 mmol/L (3.4-4.5); ABG Sodium Whole Blood 138 mmol/L (135-146)
[2024-02-26 11:27] LABS: ABG Base Excess 4.4 mmol/L; ABG Glucose Whole Blood 71 mg/dL (75-99); ABG HCO3 28 mmol/L (21-25); ABG Hematocrit 25 % (34.0-46.0); ABG Ionized Calcium 4.5 mg/dL (4.5-5.3); ABG Oxygen Saturation >99.4 % (94-97); ABG PCO2 36 mmHg (35-45); ABG PH 7.49 (7.35-7.45); ABG PO2 213 mmHg (83-108); ABG Potassium Whole Blood 3.7 mmol/L (3.4-4.5); ABG Sodium Whole Blood 138 mmol/L (135-146)
[2024-02-26 12:00] LABS: ABG Base Excess 4.1 mmol/L; ABG Glucose Whole Blood 86 mg/dL (75-99); ABG HCO3 27 mmol/L (21-25); ABG Ionized Calcium 4.4 mg/dL (4.5-5.3); ABG Lactic Acid Whole Blood 0.9 mmol/L (0.5-1.6); ABG Oxygen Saturation 99.3 % (94-97); ABG PCO2 34 mmHg (35-45); ABG PH 7.51 (7.35-7.45); ABG PO2 189 mmHg (83-108); ABG Potassium Whole Blood 3.6 mmol/L (3.4-4.5); ABG Sodium Whole Blood 138 mmol/L (135-146)
[2024-02-26 12:28] LABS: ABG Hematocrit 23 % (34.0-46.0)
[2024-02-26 12:29] LABS: ABG Hematocrit 24 % (34.0-46.0)
[2024-02-26 12:31] LABS: ABG Hematocrit 24 % (34.0-46.0)
[2024-02-26 12:44] LABS: ABG Base Excess 2.6 mmol/L; ABG Glucose Whole Blood 96 mg/dL (75-99); ABG HCO3 27 mmol/L (21-25); ABG Ionized Calcium 4.9 mg/dL (4.5-5.3); ABG Lactic Acid Whole Blood 0.7 mmol/L (0.5-1.6); ABG Oxygen Saturation 99.4 % (94-97); ABG PCO2 38 mmHg (35-45); ABG PH 7.45 (7.35-7.45); ABG PO2 239 mmHg (83-108); ABG Potassium Whole Blood 3.3 mmol/L (3.4-4.5); ABG Sodium Whole Blood 139 mmol/L (135-146)
[2024-02-26 12:53] LABS: ABG Hematocrit 24 % (34.0-46.0)
--- NOTE | 2024-02-26 13:26 | P.PN ---
Subjective Progress Note Date: 02/26/24 This is a pleasant 58 years old female with past medical history of multiple medical problems as below She has been incarcerated for 52 days, there is officer at bedside. Patient presents because of shortness of breath and exertional dyspnea has for the last 2 days, she states she hears herself wheezing when she lies down. Currently she is breathing quietly. She is complaining for mild chest pain on the left side, nonradiating nonspecific, feels much better now and very mild. She has occasional cough but no phlegm. Also she is complaining from upset stomach but no diarrhea or vomiting She complains from decreased urination but no dysuria or urgency. She has mild headache feels generally weak but no dizziness or blurry vision. She used to smoke half pack per day before she got incarcerated No alcohol or illicit drugs. She follow-up with her rn transitional Dr. Donal Herrera and ring barker operator Dr. Babb who examined her about 2 months ago where she has some mild ulcer In the bottom of her right total This morning patient has low-grade fever 100.2 She is also mildly tachypneic around 22 She is saturating 93% on 2 L oxygen via nasal cannula Labs reviewed showing hemoglobin of 7.7, rest of CBC is unremarkable BMP liver enzymes not elevated. INR 0.9. Lactic 0.9 proBNP is elevated 25 100 EKG showing sinus rhythm at [address]-T changes, no left bundle branch block 02/17/2024 --Patient is seen and evaluated in room at bedside; remains on Lasix drip, remains in negative fluid balance - patient underwent cardiac catheterization which revealed severe triple-vessel coronary artery disease and now she is being evaluated for possible myocardial revascularization. Patient remains on oxygen at 2 L/min and her O2 sats is 97%, her PFT showed severe obstructive lung disease, however not severe enough to not consider myocardial revascularization if the patient is cleared by other consultants including nephrology and cardiology. Patient has been a smoker over the years, she had at least a [id number] smoking history. Remind you patient had a PFT with chest x-ray still showing evidence of pulmonary edema which will definitely compromise her PFT will likely reflect more restriction than obstructive lung disease. WBC count today is 4.9 hemoglobin 7.7 electrolytes are normal BUN is 85 creatinine 3.59 02/18/2024 Patient is seen and evaluated in room at bedside; sitting up in bed; ports stabl e breathing - patient underwent AFRICA which revealed aortic valve tricuspid and functioning normally. Mitral valve structurally normal with mild central secondary mitral regurgitation. Pulmonary vein flow has systolic dominance. Tricuspid valve appears to be normal with mild tricuspid regurgitation. Intra-atrial septum is intact with no evidence of PFO. Left atrial appendage free of clot. LV EF 35% with global hypokinesis. -- Patient is followed by cardiothoracic surgery and also nephrology. Nephrology not recommending any indication or need for hemodialysis. Patient remains on Lasix drip per nephrology. Patient has a negative fluid balance of 1322. Repeat blood work reveals hemoglobin is 7.9. BUN 82 creatinine 3.39. Mild elevation in liver function test. -Plan for surgery once clinically optimized 02/19/2024 Patient looks more awake than admission, sitting up in bed. Snf officers at bedside Mentation at baseline. She talks freely. Denies chest pain or dyspnea at rest On presentation patient was found acute CHF and non-STEMI, workup showing triple-vessel coronary artery disease and patient will require bypass procedure with cardiothoracic surgery team on the case once medically optimized. Patient currently with fluid overload on Lasix drip, on admission it was 5 mg/h, currently increased to 10 mg/h. She is making around 1 L of urine output by yesterday. Saldaña catheter in place. She is also on aspirin 81 mg Hemoglobin 8.5, creatinine 3.3 compared to 2.7 on admission with baseline 0.9- 1.2. Liver enzymes mildly elevated since admission. 02/20/2024 Patient came from group home for an NSTEMI. Workup showing severe triple-vessel coronary artery disease currently being evaluated by cardiothoracic surgery team for possible cardiac bypass procedure. However she needs optimization and she is currently kept on IV Lasix 10 mg, creatinine went up 3.3 today. Care Management Assistant recommended to continue with Lasix drip still tomorrow Patient diabetic, she is on Levemir 8 units twice daily, she is developing episodes of hypoglycemia we will going to lower the dose to 6 units twice daily She is also on aspirin 325 mg 02/21/2024 Patient continues to improve today, she is more energetic, less dyspneic Lasix drip switched to IV Lasix 60 mg twice daily Cardiothoracic surgery team with plan for valve replacement surgery on this coming Sunday 02/25 Sugars better controlled with no hyperglycemia on Levemir 6 units twice daily 02/22/2024 Patient breathing is stable, denies chest pain No new complaint Will go check breathing tomorrow Plan for cardiac surgery on Monday02/23/2024 Patient awake alert She feels more weak today Creatinine is up Plan for cardiac surgery early next week 02/24/2024 Patient feels weak No chest pain or dyspnea Patient anticipates surgery on Monday guest services officer at bedside 02/25/2024 Patient awake alert looks comfortable Generally weak Creatinine stable around 3.2 Plan for bypass cardiac surgery tomorrow, patient is agreeable to the current plan 02/26/2024 Patient is seen in follow-up today for coronary artery bypass with cardiothorac ic surgery. Patient currently n.p.o. and preop. Will await surgical report. Review of systems: Constitutional: No reports of fatigue, fever, or chills Cardiovascular: No reports of chest pain or palpitations Respiratory: No reports of shortness of breath or cough GI: No reports of nausea, vomiting, or diarrhea : No reports of dysuria or retention Neurovascular: No reports of weakness or numbness All medications have been reviewed Physical exam: -GENERAL: The patient is alert and oriented x3, not in any acute distress. Well developed, well nourished. Generally weak and lethargic HEENT: Pupils are round and equally reacting to light. EOMI. No scleral icterus. No conjunctival pallor. Normocephalic, atraumatic. No pharyngeal erythema. No thyromegaly. CARDIOVASCULAR: S1 and S2 muffled -PULMONARY: Diminished breath sounds bilaterally otherwise chest is clear to auscultation, no wheezing , no crackles. Tachypnea -ABDOMEN: Soft, nontender, nondistended, normoactive bowel sounds. No palpable organomegaly. Saldaña catheter in place MUSCULOSKELETAL: No joint swelling or deformity. -EXTREMITIES: No cyanosis, clubbing, 1+ bilateral pitting leg edema. NEUROLOGICAL: Gross neurological examination did not reveal any focal deficits. SKIN: No rashes. no petechiae. Assessment: Acute systolic CHF exacerbation, ejection fraction: 20 to 25% non-STEMI, ekg New left bundle branch block, secondary to triple-vessel coronary artery disease requiring CABG. He is scheduled to undergo CABG today 02/26/2024 Mild hypoxic respiratory failure, improved Acute kidney injury on chronic kidney disease, nonoliguric Acute on chronic anemia of chronic disease Acute urinary tract infection, urine culture showing skin or genital kwesi. Resolved Diabetes mellitus, type II, uncontrolled with hypoglycemia Nicotine dependence Chronic ulcers of the right big toe Chronic kidney disease stage II with acute kidney injury GI prophylaxis DVT prophylaxis Full code Plan: Cardiothoracic surgery team on the case with plan for bypass procedure for coronary artery disease tentatively scheduled for today 02/26/2024. Patient is n.p.o. and will await surgical report Nephrology following along with casing splitter as patient will be going to ICU postoperatively. CT surgery along with cardiology following. Continue monitoring Accu-Cheks before meals and at bedtime and will continue with protocol. Patient may require insulin drip postoperatively for tight glycemic control. We will continue to follow with cardiothoracic during hospitalization. Due to multiple complex medical issues, overall prognosis is guarded The impression and plan of care has been dictated by Mandy Granda, Nurse Practitioner as directed. Dr. Jordyn MD I have performed a history and examination and MDM of this patient, discussed the same with the dictator, and agree with the dictator's assessment and plan as written ,documented as a scribe. Based on total visit time, I have performed more than 50% of the visit. Objective - Vital Signs Vital signs: Vital Signs Temp 98.4 F 02/26/24 05:58 Pulse 72 02/26/24 05:58 Resp 16 02/26/24 05:58 BP 129/68 02/26/24 05:58 Pulse Ox 95 02/26/24 05:58 FiO2 Intake & Output 02/25/24 02/26/24 02/26/24 18:59 06:59 18:59 Intake Total 480 100 Output Total 1825 800 Balance -1345 -700 Weight 72.03 kg Intake: IV 100 Oral 480 Output: Urine 1825 800 Other: Voiding Method Indwelling Catheter Indwelling Catheter # Bowel Movements 4 - Labs CBC & Chem 7: 02/25/24 06:00 02/25/24 06:00 Labs: Abnormal Lab Results - Last 24 Hours (Table) 02/25/24 02/25/24 02/25/24 Range/Units 06:00 16:37 20:22 POC Glucose (mg/dL) 132 H 302 H (70-110) mg/dL Crossmatch See Detail 02/26/24 02/26/24 02/26/24 Range/Units 02:13 03:57 06:19 POC Glucose (mg/dL) 354 H 359 H 367 H (70-110) mg/dL Crossmatch 02/26/24 02/26/24 02/26/24 Range/Units 07:45 08:03 08:17 POC Glucose (mg/dL) 319 H 275 H 238 H (70-110) mg/dL Crossmatch 02/26/24 02/26/24 Range/Units 08:30 08:52 POC Glucose (mg/dL) 229 H 168 H (70-110) mg/dL Crossmatch
--- NOTE | 2024-02-26 13:31 | P.OP ---
Date of Procedure: 02/26/24 Preoperative Diagnosis: Acute on chronic systolic congestive heart failure, triple-vessel coronary artery disease, unstable angina, chronic renal insufficiency Postoperative Diagnosis: Same Procedure(s) Performed: Off-pump CABG x 4 with sequential RUSSO to LAD and diagonal, SVG's to PDA and second obtuse marginal, closure of the left atrial appendage with 35mm AtriCure clip, placement of percutaneous right femoral intra-aortic balloon pump, AFRICA by anesthesia. Implants: 35 mm AtriCure clip Anesthesia: QUIQUE Surgeon: Devin Gillette Chemical Process Project Engineer #1: Pal Rasmussen Chemical Process Project Engineer #2: Demian Beckford Estimated Blood Loss (ml): 250 Pathology: none sent Condition: stable Disposition: ICU Indications for Procedure: 58-year-old female who presented from skilled nursing in severe congestive heart failure. Echocardiography revealed severe systolic ventricular dysfunction with moderate mitral regurgitation. She was treated medically initially. Her baseline creatinine is about 3-1/2. She was aggressively diuresed over her stay here in the hospital and was in negative fluid balance throughout. She eventually underwent cardiac catheterization demonstrating severe three-vessel coronary artery disease. Following this and after significant diuresis she underwent AFRICA which demonstrated her ejection fraction around 35% with mild mitral regurgitation. There was no structural abnormalities of the patient's valves. Patient's heart failure gradually improved and she was eventually scheduled for CABG. On the morning of CABG her blood glucose was well over 300 and we controlled this prior to going to the operating room. Operative Findings: AFRICA intraoperatively demonstrated mild mitral regurgitation, mild aortic insufficiency and mild tricuspid regurgitation. These remained stable through out the case. Left ventricular ejection fraction initially was about 35% but in proved to about 45% after revascularization. Intra-aortic balloon pump was placed easily through the right transfemoral approach and position with AFRICA guidance in the proximal descending thoracic aorta. This was performed at the beginning of the case and significantly improved the patient is hemodynamic stability through the case. Initial cardiac index was 1.9 but improved after balloon pump placement. LAD was an excellent coronary target and was bypassed in the middle of the anterior wall. It had a 2.0+ millimeter lumen. The diagonal was also a decent sized vessel with a 1.5+ millimeter lumen. First obtuse marginal was quite small but the second obtuse marginal was graftable at 1.5 mm lumen. PDA was a good target with a 1.5 mm lumen. RUSSO was of excellent quality and good saphenous vein was obtained from the left lower extremity. Description of Procedure: Patient was brought to the operating room and placed supine on the operating table. Glucose has been controlled in the intraoperative monitoring lines placed in the preop holding area. General anesthesia was induced and the patient was intubated. AFRICA probe was placed. The anterior torso and bilateral lower extremities were sterilely prepped and draped. After timeout, the right femoral artery was punctured with an 18-gauge needle and a guidewire threaded easily. Placement in the descending thoracic aorta of the guidewire was confirmed with AFRICA. Site was dilated and a intra-aortic balloon pump placed and sheath was fashion over the wire and positioned in the proximal descending thoracic aorta by AFRICA. It was secured with 2-0 silk suture ligatures and connected to pumping. Greater saphenous vein was harvested from the left lower extremity extending from the ankle to the groin. Minimally invasive harvest was used. It was of good quality although somewhat small in the lower leg. Simultaneous sternotomy was performed. The left hemisternum was retracted upwards and the left internal mammary artery harvested on a vascularized pedicle. Was left intact on its origin from the subclavian and divided distally. It was a good conduit. The left pleural space was drained with a 32 [place] chest tube. 1400 cc of clear serous fluid was drained from the left pleural space. Standard sternal retractor was placed and the pericardium was opened in the midline. The right pleural space was also opened and 500 cc was drained from the right pleural space. Heart was exposed with pericardial sutures and the patient was systemically heparinized. ACT's were maintained greater than 250 during grafting. Targets were explored and findings as noted above. 35 mm AtriCure clip was placed on the base of the left atrial appendage. Left internal mammary artery was tunneled into the pericardial space and a sequential mammary artery was planned out. We began with a [id number] anastomosis between the diagonal and the left internal mammary. Coronary was opened and blood flow controlled with a 1.5 mm flow through. Anastomosis was constructed with running 8-0 Prolene suture. On completion of the anastomosis the flow through was removed effective from the proximal distal portion of the anastomosis. Suture was tied with good result and hemostasis in the inflow was opened. Good flow was noted at the end of the RUSSO. Next we stabilize the mid LAD region and performed an end-to-side anastomosis of the RUSSO to the LAD. 2 mm flow-through was used to control flow of blood through the LAD during anastomosis. This was removed on completion of the anastomosis, effectively probing the proximal and distal portion of the anastomosis. Graft was noted to lay well without any tension and the clearance filled well without any kinking. UNIQUE pedicle was tacked surrounding epicardium and both distal anastomosis with 6-0 silk sutures. Next the inferior wall of the heart was exposed and the PDA was stabilized. It was opened fairly proximally and blood flow controlled with a 1.5 mm flow through. Saphenous vein was anastomosed in end-to-side fashion with running 7-0 Prolene suture. On completion anastomosis the flow through was removed 50 probing the proximal distal portion of the anastomosis. Suture was tied with good result and hemostasis. Good backbleeding was noted into the vein to the first valve. Bulldog clamp was placed on the vein and the vein was cut to appropriate length to reach the ascending aorta. Next the lateral wall of the heart was exposed. The first obtuse marginal was very small and was not an appropriate coronary target. Second obtuse marginal was considerably larger and it was opened and blood flow controlled a 1.5 mm flow through. A second piece of saphenous vein was anastomosed in end-to-side fashion with running 7-0 Prolene suture. On completion anastomosis the flow through was removed effectively probing the proximal distal portion of the anastomosis. Suture was tied with good result hemostasis. Good backbleeding noted into the vein controlled with a bulldog clamp. The heart was lowered into anatomic position and the vein cut to appropriate length to reach the ascending aorta. Proximal anastomoses were constructed using 2 heartstring devices. 5-0 Prolene suture was used. This proceeded uneventfully. On completion the proximal anastomoses there were de-aired with needle holes in the inflow open. On completion of all the anastomoses they were all checked and noted to be hemostatic. Heparin was reversed with protamine. AFRICA demonstrated improved left ventricular function. Once good hemostasis had been confirmed throughout the mediastinum was drained with a 36 [place] chest tube. It was irrigated with antibiotic solution and the sternum was closed with 8 sternal wires. Fascia was closed with 0 Ethibond. Subcutaneous and subcuticular layers and the leg and chest were closed with layers of Vicryl suture. Skin glue and sterile dressings were applied the patient was transferred to ICU in stable condition.
[2024-02-26 13:44] LABS: Glucose,Whole Blood 95 mg/dL (70-110)
[2024-02-26] MEDS ORDERED: Magnesium Replacement Protocol 1 EACH MISC MISCELLANE PRN (13:52)
[2024-02-26] MEDS ORDERED: CALCIUM GLUCONATE IN NACL 2 GM in SALINE 1 100ML.BAG IVPB PRN (13:52)
[2024-02-26] MEDS ORDERED: DEXTROSE 5% IN WATER 100 ML with AMIODARONE 150 MG IV PRN (13:52)
[2024-02-26] MEDS ORDERED: Phosphorus Replacement Protoco 1 EACH MISC MISCELLANE PRN (13:52)
[2024-02-26] MEDS: LACTATED RINGERS 1,000 ML IV SCH (13:52)
[2024-02-26] MEDS: NITROGLYCERIN-D5W PMX 50 MG in DEXTROSE/WATER 1 250ML.BAG IV SCH (13:52)
[2024-02-26] MEDS: DEXTROSE/WATER 1 250ML.BAG with DOPamine DRIP 800 MG IV SCH (13:52)
[2024-02-26] MEDS ORDERED: Potassium Replacement Protocol 1 EACH MISC MISCELLANE PRN (13:52)
[2024-02-26] MEDS ORDERED: DEXMEDETOMIDINE/0.9% NACL(PMX) 400 MCG in EMPTY BAG 1 BAG IV SCH (13:52)
[2024-02-26] MEDS: CLEVIDIPINE BUTYRATE 25 MG in EMPTY BAG 1 BAG IV SCH (14:13)
--- NOTE | 2024-02-26 14:18 | XR ---
EXAMINATION TYPE: XR chest 1V portable DATE OF EXAM: 02/26/2024 2:06 PM CLINICAL INDICATION:Female, 58 years old with history of Post Operative Cardiac Surgery; [facility] COMPARISON: 02/25/2024 TECHNIQUE: XR chest 1V portable Frontal view of the chest. FINDINGS: Lungs/Pleura: There is no evidence of pleural effusion, focal consolidation, or pneumothorax. Pulmonary vascularity: Unremarkable. Heart/mediastinum: Cardiomediastinal silhouette is enlarged and stable. Left atrial appendage occlusi on device is present. Musculoskeletal: No acute osseous pathology. Other findings: None Lines/Tubes: Endotracheal tube with distal tip 2.8 cm above the anthony. Nasogastric tube with its distal tip and side-port projecting under the diaphragm. There is a [place]Jam[place] catheter with tip projecting over the spine. Bilateral thoracotomy tubes are present without evidence of pneumothorax. Drainage tubes with tips projecting over the mediastinum. IMPRESSION: Post surgical changes of pulmonary vascular congestion.
[2024-02-26] MEDS: AMIODARONE 360 MG in DEXTROSE 5% IN WATER 200 ML IV ONE (14:24)
[2024-02-26 14:42] LABS: Glucose,Whole Blood 140 mg/dL (70-110)
[2024-02-26 14:45] LABS: ABG Base Excess -1.3 mmol/L; ABG HCO3 25 mmol/L (21-25); ABG Oxygen Saturation 100.5 % (94-97); ABG PCO2 46 mmHg (35-45); ABG PH 7.34 (7.35-7.45); ABG PO2 265 mmHg (83-108); Allen Test Performed? Yes
[2024-02-26 14:51] LABS: Basophils % (A) 0 %; Eosinophils # (A) 0.1 k/uL (0-0.7); Eosinophils % (A) 2 %; HCT 28.3 % (34.0-46.0); Hypochromasia Moderate; Lymphocytes # (A) 0.7 k/uL (1.0-4.8); Lymphocytes % (A) 14 %; MCH 30.3 pg (25.0-35.0); MCHC 31.9 g/dL (31.0-37.0); MCV 95.3 fL (80.0-100.0); Mean Platelet Volume 8.9; Monocytes # (A) 0.2 k/uL (0-1.0); Monocytes % (A) 3 %; Neutrophils # (A) 3.9 k/uL (1.3-7.7); Neutrophils % (A) 80 %; Platelet Count 252 k/uL (150-450); Poikilocytosis Slight; RBC 2.97 m/uL (3.80-5.40); RDW 14.8 % (11.5-15.5); WBC 4.9 k/uL (3.8-10.6)
[2024-02-26 14:54] LABS: Ionized Calcium 4.6 mg/dL (4.5-5.3)
[2024-02-26] MEDS: IPRATROPIUM-ALBUTEROL 3 ML NEB INHALATION SCH ×2 (14:55→19:45)
[2024-02-26 15:04] LABS: INR 1.1 (<1.2); Partial Thromboplastin Time 26.9 sec (22.0-30.0); Prothrombin Time 11.6 sec (10.0-12.5)
[2024-02-26] MEDS: INSULIN REGULAR 100 UNIT in SODIUM CHLORIDE 0.9% 100 ML IV SCH (15:05)
[2024-02-26 15:11] LABS: Glucose,Whole Blood 167 mg/dL (70-110)
[2024-02-26 15:54] LABS: ALT 30 U/L (4-34); AST 41 U/L (14-36); African American GFR (CKD) 22 (>60 ml/min/1.73 sqM); Albumin 2.1 g/dL (3.5-5.0); Alkaline Phosphatase 128 U/L (38-126); Anion Gap 1 mmol/L; Blood Urea Nitrogen 57 mg/dL (7-17); Calcium 7.6 mg/dL (8.4-10.2); Carbon Dioxide 26 mmol/L (22-30); Chloride 109 mmol/L (98-107); Glucose 87 mg/dL (74-99); Magnesium 1.5 mg/dL (1.6-2.3); Non-African American GFR(CKD) 19 (>60 ml/min/1.73 sqM); Potassium 4.2 mmol/L (3.5-5.1); Sodium 136 mmol/L (137-145); Total Bilirubin 0.4 mg/dL (0.2-1.3); Total Protein 4.6 g/dL (6.3-8.2)
--- NOTE | 2024-02-26 16:00 | P.ANPRN ---
Procedure Note - Anesthesia - Invasive Line Right Central Line Time Out Performed: Yes (0717) Date of Procedure: 02/26/24 Time of Procedure: 07:18 Location of Patient: Phase I Preparation: Sterile Prep, Sterile Dressing Central Line Location: Internal Jugular (right IJ) Ultrasound Used: Yes Purpose - Visualization and Identification of Vasculature: Yes Needle Guage: 18g angio Image Stored and Saved: Yes Narrative: Invasive line placement per sterile protocol utilized. Anesthesia note Procedure: Right internal jugular central venous catheter insertion: 8.5-[place] Cordis Sterile protocol followed. Right neck prepped. Ultrasound used. Lidocaine 1% used. Using ultrasound local anesthetic was instilled site over right Internal Jugular vein. Angiocath was used to gain access via ultrasound. Once free flow non-pulsatile blood flow was confirmed, 12 inch extension tubing was then placed on Angiocath. Once central venous pressure was confirmed, J-wire was then placed through Angiocath. Angiocath was then withdrawn. Local was instilled at J-wire site. Small skin meem was then made with provided sterile scalpel. 8.5- [place] Cordis was then inserted over the wire while maintaining control of wire at all times. Uneventful insertion with dilation. Free flow nonpulsatile blood flow through Cordis. Hooked up to IV tubing. Secured with suture. Dressings applied. Drapes Removed. Attempts x1.
--- NOTE | 2024-02-26 16:01 | P.ANPRN ---
Procedure Note - Anesthesia - Invasive Line Right Arterial Line Time Out Performed: Yes (0717) Date of Procedure: 02/26/24 Time of Procedure: 07:28 Location of Patient: Phase I Preparation: Sterile Prep, Sterile Dressing Arterial Line Location: Radial (right radial) Ultrasound Used: Yes Purpose - Visualization and Identification of Vasculature: Yes Needle Guage: 20g Image Stored and Saved: Yes Narrative: Invasive line placement per sterile protocol utilized. attempt x 2 per chief operator lock tender. attempt x2 with success. Lumen bled and flsuhed. Pulsitile. Secured and dressed
[2024-02-26 16:02] LABS: Glucose,Whole Blood 161 mg/dL (70-110)
--- NOTE | 2024-02-26 16:03 | P.ANPRN ---
Procedure Note - Anesthesia - Invasive Line Right [place] Time Out Performed: Yes (0717) Date of Procedure: 02/26/24 Time of Procedure: 07:42 Location of Patient: Phase I Preparation: Sterile Prep, Sterile Dressing [place] Line Location: Internal Jugular (right) Ultrasound Used: No Purpose - Visualization and Identification of Vasculature: No Image Stored and Saved: No Narrative: Invasive line placement per sterile protocol utilized. Anesthesia note Procedure right [place] catheter placed through right internal jugular central venous catheter Sterile protocol maintained from previous procedure. [place] catheter sterilely placed in sheath and flushed prior to insertion. After advancing 15 cm [place] catheter was then slowly inserted with balloon up. Advanced through CVP, RV to PA waveform. [place] catheter wedged around 50cm. Balloon down. Catheter withdrawn 5 cm. . No wedge. Proximal and distal sites locked on sheath. Attempts x1. Sterile drapes removed and dressings applied.
--- NOTE | 2024-02-26 16:05 | P.ANPRN ---
Procedure Note - Anesthesia - AFRICA Intraop Pre Bypass AFRICA Intraop - Anesthesia Indication: CAD Date of Procedure: 02/26/24 Pre-operative Diagnosis: CAD Post-operative Diagnosis: same Surgeon: Devin Gillette Ejection Fraction: Other (35%) Regional Wall Motion Abnormalities: Other (global hypokinesis. Greater in the inferior and posterior segments) Left Ventricle Hypertrophy: No R. Ventricle Function: Normal Anatomy: Trileaflet Aortic Stenosis: None Aortic Regurgitation: Trace Mitral Stenosis: None Mitral Regurgitation: Trace Tricuspid Regurgitation: Trace Pulmonic Stenosis: None Pulmonic Regurgitation: None R. Atrial Dilation: No R. Atrial PFO: No L. Atrial Dilation: No Aortic Dissection: No Aortic Calcification: None Plural Effusion: None
--- NOTE | 2024-02-26 16:07 | P.ANPRN ---
Procedure Note - Anesthesia - AFRICA Intraop Post Bypass AFRICA Intraop Post Bypass Procedure Performed: offpump cabg Left Ventricle: increased EF. 40-45 % Regional Wall Motion Abnormalities: Other (increased movement of all segments but still noticible hypokiness of the posterior and inferior segments.) R. Ventricle Function: Normal Aortic Valve: Unchanged Mitral Valve: Unchanged Tricuspid: Unchanged Pulmonic: Unchanged Aortic Dissection: No
[2024-02-26] MEDS: MAGNESIUM SULFATE-D5W PMX 1 GM in DEXTROSE/WATER 1 100ML.BAG IVPB SCH (16:15)
[2024-02-26] MEDS: ACETAMINOPHEN IV (For NPO) 1,000 MG in EMPTY BAG 1 BAG IVPB SCH (16:23)
[2024-02-26] MEDS: HEPARIN SODIUM,PORCINE 5,000 UNIT/ML 1 ML VIAL SQ SCH (16:28)
[2024-02-26 16:52] LABS: Glucose,Whole Blood 160 mg/dL (70-110)
[2024-02-26 17:08] LABS: Basophils % (A) 0 %; Eosinophils # (A) 0.1 k/uL (0-0.7); Eosinophils % (A) 1 %; HCT 28.7 % (34.0-46.0); Hypochromasia Moderate; Lymphocytes # (A) 0.6 k/uL (1.0-4.8); Lymphocytes % (A) 6 %; MCH 29.8 pg (25.0-35.0); MCHC 31.4 g/dL (31.0-37.0); MCV 94.8 fL (80.0-100.0); Monocytes # (A) 0.4 k/uL (0-1.0); Monocytes % (A) 4 %; Neutrophils % (A) 88 %; Platelet Count 291 k/uL (150-450); Poikilocytosis Slight; RBC 3.03 m/uL (3.80-5.40); RDW 14.8 % (11.5-15.5); WBC 9.1 k/uL (3.8-10.6)
--- NOTE | 2024-02-26 17:30 | P.PN ---
Subjective Progress Note Date: 02/26/24 Patient 02/26/2024, the patient is being seen immediately after she arrived to the intensive care unit. This patient has been in the hospital for almost 2 weeks. She sustained an acute non-ST segment elevation myocardial infarction. She has severe ischemic cardiomyopathy with an ejection fraction of 20 to 25% along with moderate to severe mitral regurgitation. The patient was optimized and subsequently the patient was taken to the operating room for cardiac revascularization surgery. The patient is known to have COPD, diabetes mellitus type 1, hypertension hyperlipidemia previous history of CVA and hypothyroidism along with fibromyalgia. She is a chronic smoker who carries [id number] smoki ng history. The patient underwent off-pump coronary bypass surgery x 4 with sequential RUSSO to LAD and diagonal and SVG to PDA and second obtuse marginal and closure of the left atrial appendage. An intra-aortic balloon pump was also inserted intraoperatively. At this point in time, the patient is intubated and on mechanical ventilator. The patient was on assist-control mode of mechanical ventilation at the rate of 14, tidal volume of 400 with an FiO2 of 100% with a PEEP of 5. The patient had an initial blood gas that showed a pH of 7.34 with pCO2 of 46 and pO2 of 265. Based on that, the FiO2 was gradually weaned off and the respiratory rate was increased up to 22. Subsequently, the patient remained hemodynamically stable. In fact, her current cardiac output is at 4.8 with an index of 2.6 while being augmented with a one-to-one intra-aortic balloon pump support with a mean augmented arterial pressure of 83-85. She has been on nitroglycerin drip which is running at 5 mg/min and she is also on dopamine at 3 mcg/kg/min. The patient is producing adequate amount of cardiac output. Cardiac rhythm is sinus and the patient is currently on amiodarone. The chest x-ray that was done in the ICU shows adequate expansion of both lungs. The patient has a right IJ [place]-Jamal catheter in place and ET tube is around 2 cm above the anthony and the patient has a right pleural left pleural and mediastinal chest tube. Output from the chest tubes have been essentially low in the order of 100-150 cc from the chest tube just arrived from the operating room. Based on her stable condition, the patient was taken gradually off the propofol and the patient is currently undergoing a spontaneous breathing trial with a pressure support of 5 and a PEEP of 5. The weaning parameters were karie quate. The blood work today postop showed a sodium level of 136 with a potassium level of 4.2, BUN is 57 with a creatinine of 2.6 and the patient has a white cell count of 4.9 with a hemoglobin of 9 and a platelet count of 252. She is arousable and she is following commands and moving all 4 extremities without any limitation. She is currently afebrile. Objective - Vital Signs Vital signs: Vital Signs Temp 97.0 F L 02/26/24 16:00 Pulse 76 02/26/24 16:00 Resp 23 02/26/24 16:00 BP 129/68 02/26/24 05:58 Pulse Ox 92 L 02/26/24 16:00 FiO2 40 02/26/24 16:39 Intake & Output 02/25/24 02/26/24 02/26/24 18:59 06:59 18:59 Intake Total 480 100 664.786 Output Total 0029 672 6263 Balance -1345 -700 -350.214 Weight 72.03 kg Intake: IV 100 229 .9NS Cardiac Output 50 .9NS Pressure Bag 36 Lactated Ringers 1,000 ml 140 @ 50 mls/hr IV .Q20H LYNDSAY Rx#:[id number] Intake, IV Titration 125.786 Amount Insulin Regular 100 unit 2.483 In Sodium Chloride 0.9% 100 ml @ Per Protocol IV .Q0M LYNDSAY Rx#:[id number] Lactated Ringers 1,000 ml 50 @ 50 mls/hr IV .Q20H LYNDSAY Rx#:[id number] ceFAZolin 2 gm In Sodium 50 Chloride 0.9% 50 ml @ 100 mls/hr IVPB Q8HR LYNDSAY Rx# :[id number] propofoL 1,000 mg In 23.303 Empty Bag 1 bag @ Titrate IV .Q0M LYNDSAY Rx#: [id number] Oral 480 Blood Product 310 Rc As-1 Unit 310 [id number] Output: Chest Tube Drainage 200 Left Pleural Chest Tube 105 Mediastinal Chest Tube 60 Right Pleural Chest Tube 35 Urine 1825 800 415 Estimated Blood Loss 400 Other: Voiding Method Indwelling Catheter Indwelling Catheter Indwelling Catheter # Bowel Movements 4 ABP, PAP, CO, CI - Last Documented Arterial Blood Pressure 104/46 Pulmonary Artery Pressure 30/14 Cardiac Output 5.6 Cardiac Index 3 - Exam GENERAL EXAM: Alert, 58-year-old white female, resting comfortably in bed, the patient is arousable while being on propofol. Moving all 4 extremities without limitation. The patient has a orogastric and orotracheal tube in place. The patient also has a right IJ [place]-Jamal catheter. Left radial arterial line is also in place. She has a Saldaña catheter in place. She also has a TERRA drain in her left lower extremity. The patient also has an intra-aortic balloon pump. The pump is inserted through the right femoral artery. HEAD: Normocephalic and atraumatic EYES: Normal reaction of pupils, equal size. NOSE: Clear with pink turbinates. THROAT: No erythema or exudates. NECK: No masses, no JVD. CHEST: No chest wall deformity. LUNGS: The patient has a mediastinal, right lower and left lower chest tube. Thoracotomy scar is dry clean and intact. Breath sounds equal and symmetrical bilaterally. CVS: S1 and S2 normal with no audible murmur, regular rhythm. No extra heart sounds ABDOMEN: No hepatosplenomegaly, active bowel sounds, no guarding or rigidity. SPINE: No scoliosis or deformity SKIN: No rashes CENTRAL NERVOUS SYSTEM: No focal deficits, tone is normal in all 4 extremities. EXTREMITIES: There is bilateral lower has equal and symmetrical pulses in the lower extremities bilaterally. The patient has amputation of the right great toe. Extremities are warm. The patient has a TERRA drain in the left lower extremity. The patient also has an arterial line in the left upper extremity radial artery. - Labs CBC & Chem 7: 02/26/24 14:51 02/26/24 13:42 Labs: Abnormal Lab Results - Last 24 Hours (Table) 02/25/24 02/25/24 02/26/24 Range/Units 06:00 20:22 02:13 RBC (3.80-5.40) m/uL Hgb (11.4-16.0) gm/dL Hct (34.0-46.0) % Neutrophils # (1.3-7.7) k/uL Lymphocytes # (1.0-4.8) k/uL ABG pH (7.35-7.45) ABG pCO2 (35-45) mmHg ABG pO2 (83-108) mmHg ABG HCO3 (21-25) mmol/L ABG O2 Saturation (94-97) % ABG Hematocrit (34.0-46.0) % ABG Potassium (3.4-4.5) mmol/L ABG Ionized Calcium (4.5-5.3) mg/dL ABG Glucose (75-99) mg/dL Hemoglobin (11.4-16.0) gm/dL Sodium (137-145) mmol/L Chloride (98-107) mmol/L BUN (7-17) mg/dL Creatinine (0.52-1.04) mg/dL POC Glucose (mg/dL) 302 H 354 H (70-110) mg/dL Calcium (8.4-10.2) mg/dL Magnesium (1.6-2.3) mg/dL AST (14-36) U/L Alkaline Phosphatase (38-126) U/L Total Protein (6.3-8.2) g/dL Albumin (3.5-5.0) g/dL Arterial Blood Potassium (3.4-4.5) mmol/L Arterial Blood Glucose (75-99) mg/dL Crossmatch See Detail 02/26/24 02/26/24 02/26/24 Range/Units 03:57 06:19 07:45 RBC (3.80-5.40) m/uL Hgb (11.4-16.0) gm/dL Hct (34.0-46.0) % Neutrophils # (1.3-7.7) k/uL Lymphocytes # (1.0-4.8) k/uL ABG pH (7.35-7.45) ABG pCO2 (35-45) mmHg ABG pO2 (83-108) mmHg ABG HCO3 (21-25) mmol/L ABG O2 Saturation (94-97) % ABG Hematocrit (34.0-46.0) % ABG Potassium (3.4-4.5) mmol/L ABG Ionized Calcium (4.5-5.3) mg/dL ABG Glucose (75-99) mg/dL Hemoglobin (11.4-16.0) gm/dL Sodium (137-145) mmol/L Chloride (98-107) mmol/L BUN (7-17) mg/dL Creatinine (0.52-1.04) mg/dL POC Glucose (mg/dL) 359 H 367 H 319 H (70-110) mg/dL Calcium (8.4-10.2) mg/dL Magnesium (1.6-2.3) mg/dL AST (14-36) U/L Alkaline Phosphatase (38-126) U/L Total Protein (6.3-8.2) g/dL Albumin (3.5-5.0) g/dL Arterial Blood Potassium (3.4-4.5) mmol/L Arterial Blood Glucose (75-99) mg/dL Crossmatch 02/26/24 02/26/24 02/26/24 Range/Units 08:03 08:17 08:30 RBC (3.80-5.40) m/uL Hgb (11.4-16.0) gm/dL Hct (34.0-46.0) % Neutrophils # (1.3-7.7) k/uL Lymphocytes # (1.0-4.8) k/uL ABG pH (7.35-7.45) ABG pCO2 (35-45) mmHg ABG pO2 (83-108) mmHg ABG HCO3 (21-25) mmol/L ABG O2 Saturation (94-97) % ABG Hematocrit (34.0-46.0) % ABG Potassium (3.4-4.5) mmol/L ABG Ionized Calcium (4.5-5.3) mg/dL ABG Glucose (75-99) mg/dL Hemoglobin (11.4-16.0) gm/dL Sodium (137-145) mmol/L Chloride (98-107) mmol/L BUN (7-17) mg/dL Creatinine (0.52-1.04) mg/dL POC Glucose (mg/dL) 275 H 238 H 229 H (70-110) mg/dL Calcium (8.4-10.2) mg/dL Magnesium (1.6-2.3) mg/dL AST (14-36) U/L Alkaline Phosphatase (38-126) U/L Total Protein (6.3-8.2) g/dL Albumin (3.5-5.0) g/dL Arterial Blood Potassium (3.4-4.5) mmol/L Arterial Blood Glucose (75-99) mg/dL Crossmatch 02/26/24 02/26/2424 Range/Units 08:52 09:24 10:13 RBC (3.80-5.40) m/uL Hgb (11.4-16.0) gm/dL Hct (34.0-46.0) % Neutrophils # (1.3-7.7) k/uL Lymphocytes # (1.0-4.8) k/uL ABG pH (7.35-7.45) ABG pCO2 51 H 49 H (35-45) mmHg ABG pO2 137 H 125 H (83-108) mmHg ABG HCO3 30 H 29 H (21-25) mmol/L ABG O2 Saturation 99.1 H 98.9 H (94-97) % ABG Hematocrit 23 L 24 L (34.0-46.0) % ABG Potassium 3.3 L 3.2 L (3.4-4.5) mmol/L ABG Ionized Calcium (4.5-5.3) mg/dL ABG Glucose 101 H 101 H (75-99) mg/dL Hemoglobin 7.3 L 7.7 L (11.4-16.0) gm/dL Sodium (137-145) mmol/L Chloride (98-107) mmol/L BUN (7-17) mg/dL Creatinine (0.52-1.04) mg/dL POC Glucose (mg/dL) 168 H (70-110) mg/dL Calcium (8.4-10.2) mg/dL Magnesium (1.6-2.3) mg/dL AST (14-36) U/L Alkaline Phosphatase (38-126) U/L Total Protein (6.3-8.2) g/dL Albumin (3.5-5.0) g/dL Arterial Blood Potassium 3.3 L 3.2 L (3.4-4.5) mmol/L Arterial Blood Glucose 101 H 101 H (75-99) mg/dL Crossmatch 02/26/24 02/26/24 02/26/24 Range/Units 10:49 11:28 12:01 RBC (3.80-5.40) m/uL Hgb (11.4-16.0) gm/dL Hct (34.0-46.0) % Neutrophils # (1.3-7.7) k/uL Lymphocytes # (1.0-4.8) k/uL ABG pH 7.49 H 7.51 H (7.35-7.45) ABG pCO2 34 L (35-45) mmHg ABG pO2 186 H 213 H 189 H (83-108) mmHg ABG HCO3 29 H 28 H 27 H (21-25) mmol/L ABG O2 Saturation >99.4 H >99.4 H 99.3 H (94-97) % ABG Hematocrit 26 L 25 L 24 L (34.0-46.0) % ABG Potassium (3.4-4.5) mmol/L ABG Ionized Calcium 4.4 L (4.5-5.3) mg/dL ABG Glucose 71 L (75-99) mg/dL Hemoglobin 8.3 L 8.0 L 7.9 L (11.4-16.0) gm/dL Sodium (137-145) mmol/L Chloride (98-107) mmol/L BUN (7-17) mg/dL Creatinine (0.52-1.04) mg/dL POC Glucose (mg/dL) (70-110) mg/dL Calcium (8.4-10.2) mg/dL Magnesium (1.6-2.3) mg/dL AST (14-36) U/L Alkaline Phosphatase (38-126) U/L Total Protein (6.3-8.2) g/dL Albumin (3.5-5.0) g/dL Arterial Blood Potassium (3.4-4.5) mmol/L Arterial Blood Glucose 71 L (75-99) mg/dL Crossmatch 02/26/24 02/26/24 02/26/24 Range/Units 12:45 13:42 13:42 RBC 2.97 L (3.80-5.40) m/uL Hgb 9.0 L (11.4-16.0) gm/dL Hct 28.3 L (34.0-46.0) % Neutrophils # (1.3-7.7) k/uL Lymphocytes # 0.7 L (1.0-4.8) k/uL ABG pH (7.35-7.45) ABG pCO2 (35-45) mmHg ABG pO2 239 H (83-108) mmHg ABG HCO3 27 H (21-25) mmol/L ABG O2 Saturation 99.4 H (94-97) % ABG Hematocrit 24 L (34.0-46.0) % ABG Potassium 3.3 L (3.4-4.5) mmol/L ABG Ionized Calcium (4.5-5.3) mg/dL ABG Glucose (75-99) mg/dL Hemoglobin 8.0 L (11.4-16.0) gm/dL Sodium 136 L (137-145) mmol/L Chloride 109 H (98-107) mmol/L BUN 57 H (7-17) mg/dL Creatinine 2.65 H (0.52-1.04) mg/dL POC Glucose (mg/dL) (70-110) mg/dL Calcium 7.6 L (8.4-10.2) mg/dL Magnesium 1.5 L (1.6-2.3) mg/dL AST 41 H (14-36) U/L Alkaline Phosphatase 128 H (38-126) U/L Total Protein 4.6 L (6.3-8.2) g/dL Albumin 2.1 L (3.5-5.0) g/dL Arterial Blood Potassium 3.3 L (3.4-4.5) mmol/L Arterial Blood Glucose (75-99) mg/dL Crossmatch 02/26/24 02/26/24 02/26/24 Range/Units 14:40 14:44 14:51 RBC 3.03 L (3.80-5.40) m/uL Hgb 9.0 L (11.4-16.0) gm/dL Hct 28.7 L (34.0-46.0) % Neutrophils # 8.0 H (1.3-7.7) k/uL Lymphocytes # 0.6 L (1.0-4.8) k/uL ABG pH 7.34 L (7.35-7.45) ABG pCO2 46 H (35-45) mmHg ABG pO2 265 H (83-108) mmHg ABG HCO3 (21-25) mmol/L ABG O2 Saturation 100.5 H (94-97) % ABG Hematocrit (34.0-46.0) % ABG Potassium (3.4-4.5) mmol/L ABG Ionized Calcium (4.5-5.3) mg/dL ABG Glucose (75-99) mg/dL Hemoglobin (11.4-16.0) gm/dL Sodium (137-145) mmol/L Chloride (98-107) mmol/L BUN (7-17) mg/dL Creatinine (0.52-1.04) mg/dL POC Glucose (mg/dL) 140 H (70-110) mg/dL Calcium (8.4-10.2) mg/dL Magnesium (1.6-2.3) mg/dL AST (14-36) U/L Alkaline Phosphatase (38-126) U/L Total Protein (6.3-8.2) g/dL Albumin (3.5-5.0) g/dL Arterial Blood Potassium (3.4-4.5) mmol/L Arterial Blood Glucose (75-99) mg/dL Crossmatch 02/26/24 02/26/24 02/26/24 Range/Units 15:09 16:00 16:51 RBC (3.80-5.40) m/uL Hgb (11.4-16.0) gm/dL Hct (34.0-46.0) % Neutrophils # (1.3-7.7) k/uL Lymphocytes # (1.0-4.8) k/uL ABG pH (7.35-7.45) ABG pCO2 (35-45) mmHg ABG pO2 (83-108) mmHg ABG HCO3 (21-25) mmol/L ABG O2 Saturation (94-97) % ABG Hematocrit (34.0-46.0) % ABG Potassium (3.4-4.5) mmol/L ABG Ionized Calcium (4.5-5.3) mg/dL ABG Glucose (75-99) mg/dL Hemoglobin (11.4-16.0) gm/dL Sodium (137-145) mmol/L Chloride (98-107) mmol/L BUN (7-17) mg/dL Creatinine (0.52-1.04) mg/dL POC Glucose (mg/dL) 167 H 161 H 160 H (70-110) mg/dL Calcium (8.4-10.2) mg/dL Magnesium (1.6-2.3) mg/dL AST (14-36) U/L Alkaline Phosphatase (38-126) U/L Total Protein (6.3-8.2) g/dL Albumin (3.5-5.0) g/dL Arterial Blood Potassium (3.4-4.5) mmol/L Arterial Blood Glucose (75-99) mg/dL Crossmatch Assessment and Plan Assessment: Multivessel coronary artery disease and the patient is status post acute non-ST elevation NE, the patient underwent four-vessel bypass surgery off-pump which included sequential RUSSO to To the LAD and diagonal and SVG to PDA and second obtuse marginal branch and the patient is currently postop day day #0. Currently has intra-aortic Pulmon pump for hemodynamic support with a augmented pressures mean of 85. Remains intubated on mechanical ventilator. Hemodynamically stable. Currently on dopamine at 3 mcg/kg/min and also on a nitroglycerin drip. Cardiac output is adequate with a cardiac index of 2.6. Pulmonary artery pressures are not elevated. Postthoracotomy, currently intubated on the mechanical ventilator. Chest tubes are all in place. Output is minimal and there is no evidence of air leak in the chest x-ray showing adequate expansion of both lungs. Blood gas was noted and the necessary ventilator changes were done. The patient is currently undergoing a spontaneous breathing trial. They are weaning parameters are adequate. Ischemic cardiomyopathy with an estimated left ventricular ejection fraction severely impaired at 20 to 25% as well as moderate to severe mitral valve regurgitation Normocytic normochromic anemia, Chronic kidney disease the patient is renal function is stable with a postop creatinine of 2.6, noted the patient has developed an acute on top of chronic kidney disease related to cardiorenal factors. Chronic obstructive pulmonary disease, stable Diabetes mellitus type 1, had HbA1c at the time of admission was 7.1 History of hyperlipidemia History of hypertension History of CVA/TIA History of hypothyroidism History of fibromyalgia History of GERD Mildly elevated LFTs, hepatitis panel nonreactive Former tobacco smoker as of 55 days ago, before this 1/2 pack/day or approximately 15-year pack history' Previous history of methamphetamine use Plan: Continue ventilator support. The patient is currently undergoing a spontaneous breathing trial with a pressure support of 5 and a PEEP of 5 and a follow-up blood gas with obtaining 30 minutes Adequate weaning parameters The patient was taken off the propofol Hemodynamically being supported with an aortic balloon pump with one-to-one augmentation Continue dopamine Continue nitroglycerin drip Continue monitoring the cardiac output and index. Monitor the output from the chest tubes the output is minimal at this point in time and there is no evidence of any pneumothorax Continue insulin drip for blood sugar management of the insulin drip is running at 4.5 units an hour Continue amiodarone for post A-fib prophylaxis Monitor renal function Will keep the intra-aortic balloon pump active overnight Possible extubation within the next 30 minutes based on her ability to complete a spontaneous breathing trial in the follow-up blood gases Blood work was reviewed Will continue to follow and make further recommendations based on her progress. Critical care evaluation was done > 30 min Time with Patient: Greater than 30
[2024-02-26 17:32] LABS: ABG Base Excess -0.6 mmol/L; ABG HCO3 25 mmol/L (21-25); ABG Oxygen Saturation 96.8 % (94-97); ABG PCO2 41 mmHg (35-45); ABG PH 7.38 (7.35-7.45); ABG PO2 80 mmHg (83-108); Allen Test Performed? Yes
[2024-02-26] MEDS: ONDANSETRON 4 MG/2 ML VIAL IVP PRN (17:52)
[2024-02-26 18:09] LABS: Glucose,Whole Blood 135 mg/dL (70-110)
[2024-02-26 18:57] LABS: Glucose,Whole Blood 119 mg/dL (70-110)
[2024-02-26 19:53] LABS: Glucose,Whole Blood 110 mg/dL (70-110)
[2024-02-26] MEDS: AMIODARONE 450 MG in DEXTROSE 5% IN WATER 250 ML IV SCH (19:56)
[2024-02-26 20:02] LABS: Basophils % (A) 0 %; Eosinophils # (A) 0.1 k/uL (0-0.7); Eosinophils % (A) 1 %; HCT 28.3 % (34.0-46.0); HGB 9.3 gm/dL (11.4-16.0); Hypochromasia Moderate; Lymphocytes # (A) 0.5 k/uL (1.0-4.8); Lymphocytes % (A) 5 %; MCH 30.9 pg (25.0-35.0); MCHC 32.8 g/dL (31.0-37.0); MCV 94.3 fL (80.0-100.0); Mean Platelet Volume 8.2; Monocytes # (A) 0.5 k/uL (0-1.0); Monocytes % (A) 6 %; Neutrophils # (A) 8.1 k/uL (1.3-7.7); Neutrophils % (A) 87 %; Platelet Count 299 k/uL (150-450); Poikilocytosis Moderate; RDW 15.2 % (11.5-15.5); WBC 9.3 k/uL (3.8-10.6)
[2024-02-26 20:37] LABS: African American GFR (CKD) 22 (>60 ml/min/1.73 sqM); Anion Gap 3 mmol/L; Blood Urea Nitrogen 57 mg/dL (7-17); Calcium 8.2 mg/dL (8.4-10.2); Carbon Dioxide 24 mmol/L (22-30); Chloride 107 mmol/L (98-107); Glucose 96 mg/dL (74-99); Magnesium 2.2 mg/dL (1.6-2.3); Non-African American GFR(CKD) 19 (>60 ml/min/1.73 sqM); Potassium 4.3 mmol/L (3.5-5.1); Sodium 134 mmol/L (137-145)
[2024-02-26 20:59] LABS: Glucose,Whole Blood 146 mg/dL (70-110)
[2024-02-26] MEDS: MUPIROCIN 2% OINT 22 GM TUBE NASAL SCH (21:40)
[2024-02-26 21:57] LABS: Glucose,Whole Blood 135 mg/dL (70-110)
[2024-02-26 22:53] LABS: Glucose,Whole Blood 114 mg/dL (70-110)
[2024-02-26 23:53] LABS: Glucose,Whole Blood 137 mg/dL (70-110)
[2024-02-27 01:01] LABS: Glucose,Whole Blood 126 mg/dL (70-110)
[2024-02-27 01:59] LABS: Glucose,Whole Blood 112 mg/dL (70-110)
[2024-02-27 03:01] LABS: Glucose,Whole Blood 133 mg/dL (70-110)
[2024-02-27 03:58] LABS: Glucose,Whole Blood 142 mg/dL (70-110)
[2024-02-27 04:23] LABS: Basophils # (A) 0.1 k/uL (0-0.2); Basophils % (A) 1 %; Eosinophils # (A) 0.1 k/uL (0-0.7); Eosinophils % (A) 1 %; HCT 30.8 % (34.0-46.0); HGB 9.4 gm/dL (11.4-16.0); Hypochromasia Moderate; Lymphocytes # (A) 0.6 k/uL (1.0-4.8); Lymphocytes % (A) 7 %; MCH 29.3 pg (25.0-35.0); MCHC 30.7 g/dL (31.0-37.0); MCV 95.5 fL (80.0-100.0); Mean Platelet Volume 8.2; Monocytes # (A) 0.4 k/uL (0-1.0); Monocytes % (A) 5 %; Neutrophils # (A) 6.8 k/uL (1.3-7.7); Neutrophils % (A) 85 %; Platelet Count 328 k/uL (150-450); Poikilocytosis Slight; RBC 3.22 m/uL (3.80-5.40); RDW 14.6 % (11.5-15.5); WBC 8.1 k/uL (3.8-10.6)
[2024-02-27 04:25] LABS: Ionized Calcium 4.9 mg/dL (4.5-5.3)
[2024-02-27 04:34] LABS: ALT 22 U/L (4-34); AST 51 U/L (14-36); African American GFR (CKD) 22 (>60 ml/min/1.73 sqM); Albumin 2.2 g/dL (3.5-5.0); Alkaline Phosphatase 135 U/L (38-126); Anion Gap 6 mmol/L; Blood Urea Nitrogen 57 mg/dL (7-17); Calcium 8.3 mg/dL (8.4-10.2); Carbon Dioxide 21 mmol/L (22-30); Chloride 107 mmol/L (98-107); Glucose 125 mg/dL (74-99); Non-African American GFR(CKD) 19 (>60 ml/min/1.73 sqM); Potassium 4.5 mmol/L (3.5-5.1); Sodium 134 mmol/L (137-145); Total Bilirubin 0.3 mg/dL (0.2-1.3); Total Protein 4.9 g/dL (6.3-8.2)
[2024-02-27 05:06] LABS: Glucose,Whole Blood 122 mg/dL (70-110)
[2024-02-27] MEDS ORDERED: ACETAMINOPHEN TAB 500 MG TAB PO PRN (06:00)
[2024-02-27 06:07] LABS: Glucose,Whole Blood 103 mg/dL (70-110)
[2024-02-27 06:53] LABS: Glucose,Whole Blood 120 mg/dL (70-110)
[2024-02-27] MEDS: SYMBICORT 160-4.5 MCG INHALER INHALATION SCH (07:45)
[2024-02-27] MEDS: METOCLOPRAMIDE 5 MG/ML 2 ML VIAL IVP PRN (07:54)
[2024-02-27] MEDS: PANTOPRAZOLE 40 MG/10 ML VIAL IVP SCH (08:04)
[2024-02-27 08:19] LABS: Glucose,Whole Blood 140 mg/dL (70-110)
[2024-02-27] MEDS: CLOPIDOGREL 75 MG TAB PO SCH (08:30)
[2024-02-27] MEDS: METOPROLOL TARTRATE 12.5 MG TAB PO SCH (08:30)
--- NOTE | 2024-02-27 08:35 | XR ---
EXAMINATION TYPE: XR chest 1V portable DATE OF EXAM: 02/27/2024 6:40 AM CLINICAL INDICATION:Female, 58 years old with history of Post Operative Cardiac Surgery; [facility] COMPARISON: Chest radiograph from one day prior. TECHNIQUE: XR chest 1V portable Frontal view of the chest. FINDINGS: Lungs/Pleura: There is no evidence of pleural effusion, focal consolidation, or pneumothorax. Pulmonary vascularity: Unremarkable. Heart/mediastinum: Cardiomediastinal silhouette is enlarged and stable. Left atrial appendage occlusi on device is present. Musculoskeletal: No acute osseous pathology. Other findings: None Lines/Tubes: There is a [place]-Jamal catheter with tip projecting over the spine. Bilateral thoracotomy tubes are present without evidence of pneumothorax. Drainage tubes with tips projecting over the mediastinum. IMPRESSION: 1. Post surgical changes with pulmonary vascular congestion. 2. Endotracheal nasogastric tubes.
[2024-02-27] MEDS: hydrALAZINE HCL 20 MG/ML 1 ML VIAL IVP SCH (08:38)
[2024-02-27] MEDS: AMIODARONE 200 MG TAB PO SCH (08:48)
[2024-02-27] MEDS: LEVOTHYROXINE 88 MCG TAB PO SCH (08:48)
[2024-02-27] MEDS ORDERED: LEVOTHYROXINE IVP 100 MCG/5 ML VIAL IV SCH (09:00)
[2024-02-27] MEDS ORDERED: bisacodyL 10 MG SUPP RECTAL PRN (09:00)
[2024-02-27 09:05] LABS: Glucose,Whole Blood 141 mg/dL (70-110)
[2024-02-27] MEDS ORDERED: HYDROcodone/APAP 15 ML SOLUTION PO PRN (09:34)
[2024-02-27] MEDS: HYDROcodone/APAP 5-325MG 1 EACH TAB PO PRN ×2 (09:49→15:33)
[2024-02-27 10:04] LABS: Glucose,Whole Blood 137 mg/dL (70-110)
--- NOTE | 2024-02-27 10:06 | P.PN ---
Subjective Progress Note Date: 02/27/24 Principal diagnosis: Triple-vessel coronary artery disease, non-STEMI this admission, acute systolic heart failure with reduced ejection fraction 35%, new onset ischemic cardiomyop athy, mild mitral valve regurgitation on AFRICA, acute on chronic kidney disease, acute anemia. History of hypertension, hyperlipidemia, hypothyroid, diabetes mellitus, CVA, hepatitis as a child, CKD stage IV, previous tobacco dependence with recent cessation, severe COPD, previous methamphetamine use with recent cessation, family history of coronary artery disease. POD #1 Off-pump CABG x 4 with sequential left internal mammary artery to left anterior descending coronary artery and diagonal coronary artery, reverse saphenous vein graft's to the posterior descending coronary artery and second o btuse marginal coronary artery, closure of the left atrial appendage with 35mm AtriCure clip, placement of percutaneous right femoral intra-aortic balloon pump, transesophageal echocardiogram performed by anesthesia. Postoperative acute blood loss anemia, expected secondary to hemodilution and preoperative anemia. The patient was seen and examined in follow-up today February 27, 2024 at her bedside in the intensive care unit. She was successfully extubated at 5:48 PM last evening, she is currently on 2 L nasal cannula with oxygen saturations 96% and she is achieving 750 to 1000 mL on her incentive spirometry with encouragement. She denies any complaints of pain or shortness of breath at this time, although is complaining of episodes of nausea and has had 3 episodes of emesis. The patient is awake, alert and oriented x 3 and is in no acute apparent distress. Intra-aortic balloon pump remains in place with a 1:1 setting, blood pressure on the balloon pump is 90/47 with a MAP of 82, augmentation pressure of 110 mmHg, and bedside monitor showing an arterial line blood pressure of 117/58. Bedside telemetry is showing normal sinus rhythm heart rate 76 bpm. Dopamine drip remains infusing at 2 mcg/kg/min. Amiodarone drip infusing at 0.5 mg/min for atrial fibrillation prophylaxis. Right IJ Coy-Jamal catheter and Cordis remain in place with current hemodynamic showing a cardiac output of 3.9, cardiac index 2.1, PA pressures 36/17 and a CVP pressure of 14 mmHg. Mediastinal, left and right pleural chest tubes remain in place to low continuous wall suction -20 cm H2O. No air leak is present. Mediastinal chest tube drained 60 mL of thin serosanguineous drainage in 8 hours and 250 mL since surgery. Left pleural chest tube drained 180 mL of thin serosanguineous drainage in the last 8 hours and 420 mL since surgery. Right pleural chest tube drained 90 mL of thin serosanguineous drainage in the last 8 hours and 210 mL since surgery. Insulin drip infusing at 0.5 units/h. Laboratory and chest x-ray results reviewed. Objective - Vital Signs Vital signs: Vital Signs Temp 97.7 F 02/26/24 17:00 Pulse 76 02/27/24 07:00 Resp 13 02/27/24 07:00 BP 129/68 02/26/24 05:58 Pulse Ox 96 02/27/24 07:48 FiO2 40 02/26/24 16:39 Intake & Output 02/26/24 02/27/24 02/27/24 18:59 06:59 18:59 Intake Total 9886.885 8929.227 26.075 Output Total 1300 1075 Balance -186.769 -20.773 26.075 Weight 76.8 kg Intake: IV 367 1037 .9NS Cardiac Output 70 270 .9NS Pressure Bag 54 117 Lactated Ringers 1,000 ml 240 650 @ 50 mls/hr IV .Q20H LYNDSAY Rx#:[id number] Intake, IV Titration 436.231 17.227 26.075 Amount Insulin Regular 100 unit 12.928 17.227 In Sodium Chloride 0.9% 100 ml @ Per Protocol IV .Q0M LYNDSAY Rx#:[id number] Lactated Ringers 1,000 ml 50 @ 50 mls/hr IV .Q20H LYNDSAY Rx#:[id number] Magnesium Sulfate-D5w Pmx 200 1 gm In Dextrose/Water 1 100ml.bag @ 100 mls/hr IVPB Q1H LYNDSAY Rx#: [id number] Nitroglycerin-D5w Pmx 50 26.075 mg In Dextrose/Water 1 250ml.bag @ 5 MCG/MIN 1.5 mls/hr IV .Q24H LYNDSAY Rx#: [id number] ceFAZolin 2 gm In Sodium 150 Chloride 0.9% 50 ml @ 100 mls/hr IVPB Q8HR LYNDSAY Rx# :[id number] propofoL 1,000 mg In 23.303 Empty Bag 1 bag @ Titrate IV .Q0M LYNDSAY Rx#: [id number] Blood Product 310 Rc As-1 Unit 310 [id number] Output: Chest Tube Drainage 375 540 Left Pleural Chest Tube 175 270 Mediastinal Chest Tube 120 140 Right Pleural Chest Tube 80 130 Drainage 50 Left Calf 50 Urine 525 375 Emesis 110 Estimated Blood Loss 400 Other: Voiding Method Indwelling Catheter Indwelling Catheter ABP, PAP, CO, CI - Last Documented Arterial Blood Pressure 125/51 Pulmonary Artery Pressure 39/17 Cardiac Output 3.8 Cardiac Index 2 - Exam CONSTITUTIONAL: Laying in bed in reverse Trendelenburg position in the intensive care unit, appears comfortable, cooperative, no apparent acute distress. HEENT: Neck is supple, no JVD, no lymphadenopathy. Right IJ Cordis and Coy- Jamal catheter in place and functioning. RESPIRATORY: Lungs sounds essentially clear throughout, diminished to her bilateral bases. Respirations are symmetrical and nonlabored. Currently on 2 L nasal cannula with oxygen saturations 96%. Able to achieve 750-1000 mL on her incentive spirometry. Strong cough. CARDIOVASCULAR: Regular rhythm and rate. S1 and S2 present, negative for S3, gallop or murmur. Sternum is stable. Palpable peripheral pulses bilaterally. No calf pain or tenderness noted. Heart hugger in place with patient demonstrating appropriate use. Knee-high CRISTOBAL hose and sequential compression devices in place to his bilateral lower extremities. GASTROINTESTINAL: Abdomen soft, nontender, nondistended. Active bowel sounds present 4 quadrants. Denies passing flatus. No guarding or rigidity. Nauseous with episodes of emesis. GENITOURINARY: Saldaña present draining clear, yellow urine. Urine output 235 mL in the last 8 hours. INTEGUMENTARY: Skin is warm and dry with no evidence of clubbing or cyanosis. Midline sternal incision clean dry and well approximated, covered with dry intact dressing. Left lower extremity EVH sites well approximated without redness or drainage. Left leg TERRA drain in place with 50 mL of thin serosanguineous drainage in the last 12 hours. NEUROLOGIC: Cranial nerves II through XII intact. No focal deficits. MUSKULOSKELETAL: Able to move all extremities, strength equal bilaterally, generalized weakness. PSYCHIATRIC: Alert and oriented to person place and time, appropriate affect, intact judgment and insight. INVASIVE LINES AND TUBES: Mediastinal/left/right pleural chest tubes present and connected to low continuous wall suction, no air leaks present.Right internal jugular Coy/Cordis, right radial arterial line present. Mediastinal chest tube drained 60 mL of thin serosanguineous drainage in 8 hours and 250 mL since surgery. Left pleural chest tube drained 180 mL of thin serosanguineous drainage in the last 8 hours and 420 mL since surgery. Right pleural chest tube drained 90 mL of thin serosanguineous drainage in the last 8 hours and 210 mL since surgery. Last CO 3.9, CI 2.1, PA 36/17 and CVP 14 mmHg. - Allied health notes Allied health notes reviewed: nursing - Labs CBC & Chem 7: 02/27/24 03:55 02/27/24 03:55 Labs: Abnormal Lab Results - Last 24 Hours (Table) 02/25/24 02/26/24 02/26/24 Range/Units 06:00 08:03 08:17 RBC (3.80-5.40) m/uL Hgb (11.4-16.0) gm/dL Hct (34.0-46.0) % MCHC (31.0-37.0) g/dL Neutrophils # (1.3-7.7) k/uL Lymphocytes # (1.0-4.8) k/uL ABG pH (7.35-7.45) ABG pCO2 (35-45) mmHg ABG pO2 (83-108) mmHg ABG HCO3 (21-25) mmol/L ABG O2 Saturation (94-97) % ABG Hematocrit (34.0-46.0) % ABG Potassium (3.4-4.5) mmol/L ABG Ionized Calcium (4.5-5.3) mg/dL ABG Glucose (75-99) mg/dL Hemoglobin (11.4-16.0) gm/dL Sodium (137-145) mmol/L Chloride (98-107) mmol/L Carbon Dioxide (22-30) mmol/L BUN (7-17) mg/dL Creatinine (0.52-1.04) mg/dL Glucose (74-99) mg/dL POC Glucose (mg/dL) 275 H 238 H (70-110) mg/dL Calcium (8.4-10.2) mg/dL Magnesium (1.6-2.3) mg/dL AST (14-36) U/L Alkaline Phosphatase (38-126) U/L Total Protein (6.3-8.2) g/dL Albumin (3.5-5.0) g/dL Arterial Blood Potassium (3.4-4.5) mmol/L Arterial Blood Glucose (75-99) mg/dL Crossmatch See Detail 02/26/24 02/26/24 02/26/24 Range/Units 08:30 08:52 09:24 RBC (3.80-5.40) m/uL Hgb (11.4-16.0) gm/dL Hct (34.0-46.0) % MCHC (31.0-37.0) g/dL Neutrophils # (1.3-7.7) k/uL Lymphocytes # (1.0-4.8) k/uL ABG pH (7.35-7.45) ABG pCO2 51 H (35-45) mmHg ABG pO2 137 H (83-108) mmHg ABG HCO3 30 H (21-25) mmol/L ABG O2 Saturation 99.1 H (94-97) % ABG Hematocrit 23 L (34.0-46.0) % ABG Potassium 3.3 L (3.4-4.5) mmol/L ABG Ionized Calcium (4.5-5.3) mg/dL ABG Glucose 101 H (75-99) mg/dL Hemoglobin 7.3 L (11.4-16.0) gm/dL Sodium (137-145) mmol/L Chloride (98-107) mmol/L Carbon Dioxide (22-30) mmol/L BUN (7-17) mg/dL Creatinine (0.52-1.04) mg/dL Glucose (74-99) mg/dL POC Glucose (mg/dL) 229 H 168 H (70-110) mg/dL Calcium (8.4-10.2) mg/dL Magnesium (1.6-2.3) mg/dL AST (14-36) U/L Alkaline Phosphatase (38-126) U/L Total Protein (6.3-8.2) g/dL Albumin (3.5-5.0) g/dL Arterial Blood Potassium 3.3 L (3.4-4.5) mmol/L Arterial Blood Glucose 101 H (75-99) mg/dL Crossmatch 02/26/24 02/26/2402/25/24 Range/Units 10:13 10:49 11:28 RBC (3.80-5.40) m/uL Hgb (11.4-16.0) gm/dL Hct (34.0-46.0) % MCHC (31.0-37.0) g/dL Neutrophils # (1.3-7.7) k/uL Lymphocytes # (1.0-4.8) k/uL ABG pH 7.49 H (7.35-7.45) ABG pCO2 49 H (35-45) mmHg ABG pO2 125 H 186 H 213 H (83-108) mmHg ABG HCO3 29 H 29 H 28 H (21-25) mmol/L ABG O2 Saturation 98.9 H >99.4 H >99.4 H (94-97) % ABG Hematocrit 24 L 26 L 25 L (34.0-46.0) % ABG Potassium 3.2 L (3.4-4.5) mmol/L ABG Ionized Calcium (4.5-5.3) mg/dL ABG Glucose 101 H 71 L (75-99) mg/dL Hemoglobin 7.7 L 8.3 L 8.0 L (11.4-16.0) gm/dL Sodium (137-145) mmol/L Chloride (98-107) mmol/L Carbon Dioxide (22-30) mmol/L BUN (7-17) mg/dL Creatinine (0.52-1.04) mg/dL Glucose (74-99) mg/dL POC Glucose (mg/dL) (70-110) mg/dL Calcium (8.4-10.2) mg/dL Magnesium (1.6-2.3) mg/dL AST (14-36) U/L Alkaline Phosphatase (38-126) U/L Total Protein (6.3-8.2) g/dL Albumin (3.5-5.0) g/dL Arterial Blood Potassium 3.2 L (3.4-4.5) mmol/L Arterial Blood Glucose 101 H 71 L (75-99) mg/dL Crossmatch 02/26/24 02/26/24 02/26/24 Range/Units 12:01 12:45 13:42 RBC 2.97 L (3.80-5.40) m/uL Hgb 9.0 L (11.4-16.0) gm/dL Hct 28.3 L (34.0-46.0) % MCHC (31.0-37.0) g/dL Neutrophils # (1.3-7.7) k/uL Lymphocytes # 0.7 L (1.0-4.8) k/uL ABG pH 7.51 H (7.35-7.45) ABG pCO2 34 L (35-45) mmHg ABG pO2 189 H 239 H (83-108) mmHg ABG HCO3 27 H 27 H (21-25) mmol/L ABG O2 Saturation 99.3 H 99.4 H (94-97) % ABG Hematocrit 24 L 24 L (34.0-46.0) % ABG Potassium 3.3 L (3.4-4.5) mmol/L ABG Ionized Calcium 4.4 L (4.5-5.3) mg/dL ABG Glucose (75-99) mg/dL Hemoglobin 7.9 L 8.0 L (11.4-16.0) gm/dL Sodium (137-145) mmol/L Chloride (98-107) mmol/L Carbon Dioxide (22-30) mmol/L BUN (7-17) mg/dL Creatinine (0.52-1.04) mg/dL Glucose (74-99) mg/dL POC Glucose (mg/dL) (70-110) mg/dL Calcium (8.4-10.2) mg/dL Magnesium (1.6-2.3) mg/dL AST (14-36) U/L Alkaline Phosphatase (38-126) U/L Total Protein (6.3-8.2) g/dL Albumin (3.5-5.0) g/dL Arterial Blood Potassium 3.3 L (3.4-4.5) mmol/L Arterial Blood Glucose (75-99) mg/dL Crossmatch 02/26/24 02/26/24 02/26/24 Range/Units 13:42 14:40 14:44 RBC (3.80-5.40) m/uL Hgb (11.4-16.0) gm/dL Hct (34.0-46.0) % MCHC (31.0-37.0) g/dL Neutrophils # (1.3-7.7) k/uL Lymphocytes # (1.0-4.8) k/uL ABG pH 7.34 L (7.35-7.45) ABG pCO2 46 H (35-45) mmHg ABG pO2 265 H (83-108) mmHg ABG HCO3 (21-25) mmol/L ABG O2 Saturation 100.5 H (94-97) % ABG Hematocrit (34.0-46.0) % ABG Potassium (3.4-4.5) mmol/L ABG Ionized Calcium (4.5-5.3) mg/dL ABG Glucose (75-99) mg/dL Hemoglobin (11.4-16.0) gm/dL Sodium 136 L (137-145) mmol/L Chloride 109 H (98-107) mmol/L Carbon Dioxide (22-30) mmol/L BUN 57 H (7-17) mg/dL Creatinine 2.65 H (0.52-1.04) mg/dL Glucose (74-99) mg/dL POC Glucose (mg/dL) 140 H (70-110) mg/dL Calcium 7.6 L (8.4-10.2) mg/dL Magnesium 1.5 L (1.6-2.3) mg/dL AST 41 H (14-36) U/L Alkaline Phosphatase 128 H (38-126) U/L Total Protein 4.6 L (6.3-8.2) g/dL Albumin 2.1 L (3.5-5.0) g/dL Arterial Blood Potassium (3.4-4.5) mmol/L Arterial Blood Glucose (75-99) mg/dL Crossmatch 02/26/24 02/26/24 02/26/24 Range/Units 14:51 15:09 16:00 RBC 3.03 L (3.80-5.40) m/uL Hgb 9.0 L (11.4-16.0) gm/dL Hct 28.7 L (34.0-46.0) % MCHC (31.0-37.0) g/dL Neutrophils # 8.0 H (1.3-7.7) k/uL Lymphocytes # 0.6 L (1.0-4.8) k/uL ABG pH (7.35-7.45) ABG pCO2 (35-45) mmHg ABG pO2 (83-108) mmHg ABG HCO3 (21-25) mmol/L ABG O2 Saturation (94-97) % ABG Hematocrit (34.0-46.0) % ABG Potassium (3.4-4.5) mmol/L ABG Ionized Calcium (4.5-5.3) mg/dL ABG Glucose (75-99) mg/dL Hemoglobin (11.4-16.0) gm/dL Sodium (137-145) mmol/L Chloride (98-107) mmol/L Carbon Dioxide (22-30) mmol/L BUN (7-17) mg/dL Creatinine (0.52-1.04) mg/dL Glucose (74-99) mg/dL POC Glucose (mg/dL) 167 H 161 H (70-110) mg/dL Calcium (8.4-10.2) mg/dL Magnesium (1.6-2.3) mg/dL AST (14-36) U/L Alkaline Phosphatase (38-126) U/L Total Protein (6.3-8.2) g/dL Albumin (3.5-5.0) g/dL Arterial Blood Potassium (3.4-4.5) mmol/L Arterial Blood Glucose (75-99) mg/dL Crossmatch 02/26/24 02/26/24 02/26/24 Range/Units 16:51 17:30 18:07 RBC (3.80-5.40) m/uL Hgb (11.4-16.0) gm/dL Hct (34.0-46.0) % MCHC (31.0-37.0) g/dL Neutrophils # (1.3-7.7) k/uL Lymphocytes # (1.0-4.8) k/uL ABG pH (7.35-7.45) ABG pCO2 (35-45) mmHg ABG pO2 80 L (83-108) mmHg ABG HCO3 (21-25) mmol/L ABG O2 Saturation (94-97) % ABG Hematocrit (34.0-46.0) % ABG Potassium (3.4-4.5) mmol/L ABG Ionized Calcium (4.5-5.3) mg/dL ABG Glucose (75-99) mg/dL Hemoglobin (11.4-16.0) gm/dL Sodium (137-145) mmol/L Chloride (98-107) mmol/L Carbon Dioxide (22-30) mmol/L BUN (7-17) mg/dL Creatinine (0.52-1.04) mg/dL Glucose (74-99) mg/dL POC Glucose (mg/dL) 160 H 135 H (70-110) mg/dL Calcium (8.4-10.2) mg/dL Magnesium (1.6-2.3) mg/dL AST (14-36) U/L Alkaline Phosphatase (38-126) U/L Total Protein (6.3-8.2) g/dL Albumin (3.5-5.0) g/dL Arterial Blood Potassium (3.4-4.5) mmol/L Arterial Blood Glucose (75-99) mg/dL Crossmatch 02/26/24 02/26/24 02/26/24 Range/Units 18:55 19:52 20:10 RBC 3.00 L (3.80-5.40) m/uL Hgb 9.3 L (11.4-16.0) gm/dL Hct 28.3 L (34.0-46.0) % MCHC (31.0-37.0) g/dL Neutrophils # 8.1 H (1.3-7.7) k/uL Lymphocytes # 0.5 L (1.0-4.8) k/uL ABG pH (7.35-7.45) ABG pCO2 (35-45) mmHg ABG pO2 (83-108) mmHg ABG HCO3 (21-25) mmol/L ABG O2 Saturation (94-97) % ABG Hematocrit (34.0-46.0) % ABG Potassium (3.4-4.5) mmol/L ABG Ionized Calcium (4.5-5.3) mg/dL ABG Glucose (75-99) mg/dL Hemoglobin (11.4-16.0) gm/dL Sodium 134 L (137-145) mmol/L Chloride (98-107) mmol/L Carbon Dioxide (22-30) mmol/L BUN 57 H (7-17) mg/dL Creatinine 2.68 H (0.52-1.04) mg/dL Glucose (74-99) mg/dL POC Glucose (mg/dL) 119 H (70-110) mg/dL Calcium 8.2 L (8.4-10.2) mg/dL Magnesium (1.6-2.3) mg/dL AST (14-36) U/L Alkaline Phosphatase (38-126) U/L Total Protein (6.3-8.2) g/dL Albumin (3.5-5.0) g/dL Arterial Blood Potassium (3.4-4.5) mmol/L Arterial Blood Glucose (75-99) mg/dL Crossmatch 02/26/24 02/26/24 02/26/24 Range/Units 20:58 21:56 22:51 RBC (3.80-5.40) m/uL Hgb (11.4-16.0) gm/dL Hct (34.0-46.0) % MCHC (31.0-37.0) g/dL Neutrophils # (1.3-7.7) k/uL Lymphocytes # (1.0-4.8) k/uL ABG pH (7.35-7.45) ABG pCO2 (35-45) mmHg ABG pO2 (83-108) mmHg ABG HCO3 (21-25) mmol/L ABG O2 Saturation (94-97) % ABG Hematocrit (34.0-46.0) % ABG Potassium (3.4-4.5) mmol/L ABG Ionized Calcium (4.5-5.3) mg/dL ABG Glucose (75-99) mg/dL Hemoglobin (11.4-16.0) gm/dL Sodium (137-145) mmol/L Chloride (98-107) mmol/L Carbon Dioxide (22-30) mmol/L BUN (7-17) mg/dL Creatinine (0.52-1.04) mg/dL Glucose (74-99) mg/dL POC Glucose (mg/dL) 146 H 135 H 114 H (70-110) mg/dL Calcium (8.4-10.2) mg/dL Magnesium (1.6-2.3) mg/dL AST (14-36) U/L Alkaline Phosphatase (38-126) U/L Total Protein (6.3-8.2) g/dL Albumin (3.5-5.0) g/dL Arterial Blood Potassium (3.4-4.5) mmol/L Arterial Blood Glucose (75-99) mg/dL Crossmatch 02/26/24 02/27/24 02/27/24 Range/Units 23:51 00:59 01:57 RBC (3.80-5.40) m/uL Hgb (11.4-16.0) gm/dL Hct (34.0-46.0) % MCHC (31.0-37.0) g/dL Neutrophils # (1.3-7.7) k/uL Lymphocytes # (1.0-4.8) k/uL ABG pH (7.35-7.45) ABG pCO2 (35-45) mmHg ABG pO2 (83-108) mmHg ABG HCO3 (21-25) mmol/L ABG O2 Saturation (94-97) % ABG Hematocrit (34.0-46.0) % ABG Potassium (3.4-4.5) mmol/L ABG Ionized Calcium (4.5-5.3) mg/dL ABG Glucose (75-99) mg/dL Hemoglobin (11.4-16.0) gm/dL Sodium (137-145) mmol/L Chloride (98-107) mmol/L Carbon Dioxide (22-30) mmol/L BUN (7-17) mg/dL Creatinine (0.52-1.04) mg/dL Glucose (74-99) mg/dL POC Glucose (mg/dL) 137 H 126 H 112 H (70-110) mg/dL Calcium (8.4-10.2) mg/dL Magnesium (1.6-2.3) mg/dL AST (14-36) U/L Alkaline Phosphatase (38-126) U/L Total Protein (6.3-8.2) g/dL Albumin (3.5-5.0) g/dL Arterial Blood Potassium (3.4-4.5) mmol/L Arterial Blood Glucose (75-99) mg/dL Crossmatch 02/27/24 02/27/24 02/27/24 Range/Units 02:59 03:55 03:55 RBC 3.22 L (3.80-5.40) m/uL Hgb 9.4 L (11.4-16.0) gm/dL Hct 30.8 L (34.0-46.0) % MCHC 30.7 L (31.0-37.0) g/dL Neutrophils # (1.3-7.7) k/uL Lymphocytes # 0.6 L (1.0-4.8) k/uL ABG pH (7.35-7.45) ABG pCO2 (35-45) mmHg ABG pO2 (83-108) mmHg ABG HCO3 (21-25) mmol/L ABG O2 Saturation (94-97) % ABG Hematocrit (34.0-46.0) % ABG Potassium (3.4-4.5) mmol/L ABG Ionized Calcium (4.5-5.3) mg/dL ABG Glucose (75-99) mg/dL Hemoglobin (11.4-16.0) gm/dL Sodium 134 L (137-145) mmol/L Chloride (98-107) mmol/L Carbon Dioxide 21 L (22-30) mmol/L BUN 57 H (7-17) mg/dL Creatinine 2.61 H (0.52-1.04) mg/dL Glucose 125 H (74-99) mg/dL POC Glucose (mg/dL) 133 H (70-110) mg/dL Calcium 8.3 L (8.4-10.2) mg/dL Magnesium (1.6-2.3) mg/dL AST 51 H (14-36) U/L Alkaline Phosphatase 135 H (38-126) U/L Total Protein 4.9 L (6.3-8.2) g/dL Albumin 2.2 L (3.5-5.0) g/dL Arterial Blood Potassium (3.4-4.5) mmol/L Arterial Blood Glucose (75-99) mg/dL Crossmatch 02/27/24 02/27/24 02/27/24 Range/Units 03:56 05:04 06:51 RBC (3.80-5.40) m/uL Hgb (11.4-16.0) gm/dL Hct (34.0-46.0) % MCHC (31.0-37.0) g/dL Neutrophils # (1.3-7.7) k/uL Lymphocytes # (1.0-4.8) k/uL ABG pH (7.35-7.45) ABG pCO2 (35-45) mmHg ABG pO2 (83-108) mmHg ABG HCO3 (21-25) mmol/L ABG O2 Saturation (94-97) % ABG Hematocrit (34.0-46.0) % ABG Potassium (3.4-4.5) mmol/L ABG Ionized Calcium (4.5-5.3) mg/dL ABG Glucose (75-99) mg/dL Hemoglobin (11.4-16.0) gm/dL Sodium (137-145) mmol/L Chloride (98-107) mmol/L Carbon Dioxide (22-30) mmol/L BUN (7-17) mg/dL Creatinine (0.52-1.04) mg/dL Glucose (74-99) mg/dL POC Glucose (mg/dL) 142 H 122 H 120 H (70-110) mg/dL Calcium (8.4-10.2) mg/dL Magnesium (1.6-2.3) mg/dL AST (14-36) U/L Alkaline Phosphatase (38-126) U/L Total Protein (6.3-8.2) g/dL Albumin (3.5-5.0) g/dL Arterial Blood Potassium (3.4-4.5) mmol/L Arterial Blood Glucose (75-99) mg/dL Crossmatch - Imaging and Cardiology Chest x-ray: report reviewed, image reviewed Assessment and Plan Assessment: Triple-vessel coronary artery disease, non-STEMI this admission, status post four-vessel off-pump coronary artery bypass grafting surgery Acute systolic heart failure with reduced ejection fraction, 20-25%, 35% on AFRICA New onset ischemic cardiomyopathy Moderate to severe mitral regurgitation on transthoracic echocardiogram, mild mitral regurgitation on AFRICA Acute on chronic kidney disease Acute anemia Hypertension Hyperlipidemia, treated, cholesterol 150, LDL 72.8 Hypothyroid, TSH 1.73 Diabetes mellitus, hemoglobin A1c 7.1% CVA Hepatitis as a child Chronic kidney disease Previous tobacco dependence with recent cessation Severe COPD, preoperative FEV1 27% of predicted Previous methamphetamine use with recent cessation Family history of coronary artery disease with sister having multiple stents Postoperative acute blood loss anemia, expected given hemodilution and preoperative anemia Plan: Continue to maximize medical therapy with aspirin, statin, plavix and beta- alex. Will increase metoprolol to tartrate as tolerated. Start hydralazine 10 mg IV every 6 hours for afterload reduction. Discontinue nitroglycerin drip Continue dopamine drip at 2 mcg/kg/min renal dose. Continue amiodarone 0.5 mg/min per protocol, will start amiodarone 400 mg p.o. twice daily today for atrial fibrillation prophylaxis. No atrial fibrillation reported, currently in normal sinus rhythm. Wean oxygen as tolerated. Bronchodilator management per pulmonary critical care recommendations. Encourage incentive spirometry use 10 times every hour while awake. Decrease intra-aortic balloon pump settings to 1:2, we will remove her IABP today. Will monitor daily labs and chest x-rays. Electrolyte replacement per protocol. No further blood products at this point, hemoglobin 9.4 this morning. GI/DVT prophylaxis. Insulin management per internal medicine, patient should stay on continuous IV insulin for 48 hours. Preoperative hemoglobin A1c 7.1%. Pain control per current medication regimen, discontinue oxycodone due to the patient's complaints of nausea and start Guston 5/325 mg 1 p.o. every 4 hours as needed pain rated 1-6, and Guston 5 over 325 mg 2 p.o. every 4 hours as needed pain rated 6-10. No Toradol has been ordered at this time due to the patient's renal function. Continue Coy/Cordis for another 24 hours. Continue left and right pleural chest tubes for another 24 hours, monitor and record output. We will remove her mediastinal chest tube today. Continue Saldaña catheter for another 24 hours, continue to monitor and record strict accurate intake and output. Will discontinue left lower extremity TERRA drain. Daily weights. Levothyroxine 175 mcg p.o. daily started per preoperative dose. Trazodone 50 mg p.o. nightly restarted. More recommendations to follow on patient's clinical course. Time with Patient: Greater than 30
--- NOTE | 2024-02-27 10:13 | PN ---
PROGRESS NOTE SUBJECTIVE: A 58-year-old lady, who is status post bypass surgery, postoperative day #1. She is awake, alert, has an intra-aortic balloon pump in place and is on dopamine. CURRENT MEDICATIONS: Include, 1. Aspirin. 2. Lipitor. 3. Plavix. 4. Metoprolol. OBJECTIVE: VITAL SIGNS: Blood pressure is 125/50, respiratory rate is 18. CHEST: Reveals good air entry bilaterally. HEART: Reveals first and second heart sounds. No gallop. No murmur. ABDOMEN: Soft. EXTREMITIES: Did not reveal any edema. Peripheral pulses are felt. LABORATORY DATA: Show that the potassium is 4.5, BUN is elevated at 57, creatinine is 2.6, hemoglobin is 9.4 with a platelet count of 328. ASSESSMENT: 1. Ischemic cardiomyopathy. 2. Three vessel coronary artery disease, status post bypass surgery with left interior mammary artery to left anterior descending and diagonal venous graft to posterior descending artery and second obtuse marginal. The patient also underwent closure of the left atrial appendage with an AtriCure clip. PLAN: I will continue the patient on current medications. The patient is going to be weaned off the balloon pump today and hopefully, but stop the dopamine once that happens. MMODL / IJN: [id number] /
--- NOTE | 2024-02-27 10:20 | P.PN ---
Progress Note - Text Progress Note Date: 02/27/24 IABP removal at 9 AM this morning 02/27/2024. The right groin was examined. There was no evidence of hematoma. The balloon pump was turned off. The pre-existing sheath and balloon were removed en segundo and the artery was allowed to bleed both antegrade and retrograde for several beats. Direct pressure was held over the site for 30 minutes. There is no residual bleeding or hematoma noted. The groin itself was soft. The right lower extremity appears warm and well-perfused. A Doppler pulse was heard. The intra-aortic balloon pump was removed without incident. She remained hemodynamically stable with a good follow-up cardiac index of 2.4.
[2024-02-27 11:06] LABS: Glucose,Whole Blood 127 mg/dL (70-110)
--- NOTE | 2024-02-27 11:48 | P.PN ---
Subjective Patient is seen in follow-up for acute kidney injury. Renal function stable. Nonoliguric. Underwent CABG yesterday. Vital signs are stable. General: No acute distress. HEENT: Head exam is unremarkable. On nasal cannula. LUNGS: Chest tubes noted. HEART: Rate and Rhythm are regular. ABDOMEN: Nontender. EXTREMITITES: No edema. Objective - Vital Signs Vital signs: Vital Signs Temp 99.3 F 02/27/24 08:30 Pulse 106 H 02/27/24 11:00 Resp 15 02/27/24 11:00 BP 129/68 02/26/24 05:58 Pulse Ox 94 L 02/27/24 11:00 FiO2 40 02/26/24 16:39 Intake & Output 02/26/24 02/27/24 02/27/24 18:59 06:59 18:59 Intake Total 6048.026 1804.227 317.833 Output Total 1300 1075 220 Balance -186.769 -20.773 97.833 Weight 76.8 kg 76.8 kg Intake: IV 367 1037 286 .9NS Cardiac Output 70 270 80 .9NS Pressure Bag 54 117 36 Lactated Ringers 1,000 ml 240 650 170 @ 20 mls/hr IV .Q24H [facility]ND[facility] Rx#:[id number] Intake, IV Titration 436.231 17.227 31.833 Amount Insulin Regular 100 unit 12.928 17.227 5.758 In Sodium Chloride 0.9% 100 ml @ Per Protocol IV .Q0M [facility]ND[facility] Rx#:[id number] Lactated Ringers 1,000 ml 50 @ 20 mls/hr IV .Q24H [facility]ND[facility] Rx#:[id number] Magnesium Sulfate-D5w Pmx 200 1 gm In Dextrose/Water 1 100ml.bag @ 100 mls/hr IVPB Q1H [facility]ND[facility] Rx#: [id number] Nitroglycerin-D5w Pmx 50 26.075 mg In Dextrose/Water 1 250ml.bag @ 5 MCG/MIN 1.5 mls/hr IV .Q24H [facility]ND[facility] Rx#: [id number] ceFAZolin 2 gm In Sodium 150 Chloride 0.9% 50 ml @ 100 mls/hr IVPB Q8HR [facility]ND[facility] Rx# :[id number] propofoL 1,000 mg In 23.303 Empty Bag 1 bag @ Titrate IV .Q0M LYNDSAY Rx#: [id number] Blood Product 310 Rc As-1 Unit 310 [id number] Output: Chest Tube Drainage 375 540 110 Left Pleural Chest Tube 175 270 70 Mediastinal Chest Tube 120 140 10 Right Pleural Chest Tube 80 130 30 Drainage 50 0 Left Calf 50 0 Urine 525 375 110 Emesis 110 Estimated Blood Loss 400 Other: Voiding Method Indwelling Catheter Indwelling Catheter ABP, PAP, CO, CI - Last Documented Arterial Blood Pressure 123/59 Pulmonary Artery Pressure / Cardiac Output 4.3 Cardiac Index 2.3 - Labs CBC & Chem 7: 02/27/24 03:55 02/27/24 03:55 Labs: Abnormal Lab Results - Last 24 Hours (Table) 02/25/24 02/26/24 02/26/24 Range/Units 06:00 09:24 10:13 RBC (3.80-5.40) m/uL Hgb (11.4-16.0) gm/dL Hct (34.0-46.0) % MCHC (31.0-37.0) g/dL Neutrophils # (1.3-7.7) k/uL Lymphocytes # (1.0-4.8) k/uL ABG pH (7.35-7.45) ABG pCO2 51 H 49 H (35-45) mmHg ABG pO2 137 H 125 H (83-108) mmHg ABG HCO3 30 H 29 H (21-25) mmol/L ABG O2 Saturation 99.1 H 98.9 H (94-97) % ABG Hematocrit 23 L 24 L (34.0-46.0) % ABG Potassium 3.3 L 3.2 L (3.4-4.5) mmol/L ABG Ionized Calcium (4.5-5.3) mg/dL ABG Glucose 101 H 101 H (75-99) mg/dL Hemoglobin 7.3 L 7.7 L (11.4-16.0) gm/dL Sodium (137-145) mmol/L Chloride (98-107) mmol/L Carbon Dioxide (22-30) mmol/L BUN (7-17) mg/dL Creatinine (0.52-1.04) mg/dL Glucose (74-99) mg/dL POC Glucose (mg/dL) (70-110) mg/dL Calcium (8.4-10.2) mg/dL Magnesium (1.6-2.3) mg/dL AST (14-36) U/L Alkaline Phosphatase (38-126) U/L Total Protein (6.3-8.2) g/dL Albumin (3.5-5.0) g/dL Arterial Blood Potassium 3.3 L 3.2 L (3.4-4.5) mmol/L Arterial Blood Glucose 101 H 101 H (75-99) mg/dL Crossmatch See Detail 02/26/24 02/26/24 02/26/24 Range/Units 10:49 11:28 12:01 RBC (3.80-5.40) m/uL Hgb (11.4-16.0) gm/dL Hct (34.0-46.0) % MCHC (31.0-37.0) g/dL Neutrophils # (1.3-7.7) k/uL Lymphocytes # (1.0-4.8) k/uL ABG pH 7.49 H 7.51 H (7.35-7.45) ABG pCO2 34 L (35-45) mmHg ABG pO2 186 H 213 H 189 H (83-108) mmHg ABG HCO3 29 H 28 H 27 H (21-25) mmol/L ABG O2 Saturation >99.4 H >99.4 H 99.3 H (94-97) % ABG Hematocrit 26 L 25 L 24 L (34.0-46.0) % ABG Potassium (3.4-4.5) mmol/L ABG Ionized Calcium 4.4 L (4.5-5.3) mg/dL ABG Glucose 71 L (75-99) mg/dL Hemoglobin 8.3 L 8.0 L 7.9 L (11.4-16.0) gm/dL Sodium (137-145) mmol/L Chloride (98-107) mmol/L Carbon Dioxide (22-30) mmol/L BUN (7-17) mg/dL Creatinine (0.52-1.04) mg/dL Glucose (74-99) mg/dL POC Glucose (mg/dL) (70-110) mg/dL Calcium (8.4-10.2) mg/dL Magnesium (1.6-2.3) mg/dL AST (14-36) U/L Alkaline Phosphatase (38-126) U/L Total Protein (6.3-8.2) g/dL Albumin (3.5-5.0) g/dL Arterial Blood Potassium (3.4-4.5) mmol/L Arterial Blood Glucose 71 L (75-99) mg/dL Crossmatch 02/26/24 02/26/24 02/26/24 Range/Units 12:45 13:42 13:42 RBC 2.97 L (3.80-5.40) m/uL Hgb 9.0 L (11.4-16.0) gm/dL Hct 28.3 L (34.0-46.0) % MCHC (31.0-37.0) g/dL Neutrophils # (1.3-7.7) k/uL Lymphocytes # 0.7 L (1.0-4.8) k/uL ABG pH (7.35-7.45) ABG pCO2 (35-45) mmHg ABG pO2 239 H (83-108) mmHg ABG HCO3 27 H (21-25) mmol/L ABG O2 Saturation 99.4 H (94-97) % ABG Hematocrit 24 L (34.0-46.0) % ABG Potassium 3.3 L (3.4-4.5) mmol/L ABG Ionized Calcium (4.5-5.3) mg/dL ABG Glucose (75-99) mg/dL Hemoglobin 8.0 L (11.4-16.0) gm/dL Sodium 136 L (137-145) mmol/L Chloride 109 H (98-107) mmol/L Carbon Dioxide (22-30) mmol/L BUN 57 H (7-17) mg/dL Creatinine 2.65 H (0.52-1.04) mg/dL Glucose (74-99) mg/dL POC Glucose (mg/dL) (70-110) mg/dL Calcium 7.6 L (8.4-10.2) mg/dL Magnesium 1.5 L (1.6-2.3) mg/dL AST 41 H (14-36) U/L Alkaline Phosphatase 128 H (38-126) U/L Total Protein 4.6 L (6.3-8.2) g/dL Albumin 2.1 L (3.5-5.0) g/dL Arterial Blood Potassium 3.3 L (3.4-4.5) mmol/L Arterial Blood Glucose (75-99) mg/dL Crossmatch 02/26/24 02/26/24 02/26/24 Range/Units 14:40 14:44 14:51 RBC 3.03 L (3.80-5.40) m/uL Hgb 9.0 L (11.4-16.0) gm/dL Hct 28.7 L (34.0-46.0) % MCHC (31.0-37.0) g/dL Neutrophils # 8.0 H (1.3-7.7) k/uL Lymphocytes # 0.6 L (1.0-4.8) k/uL ABG pH 7.34 L (7.35-7.45) ABG pCO2 46 H (35-45) mmHg ABG pO2 265 H (83-108) mmHg ABG HCO3 (21-25) mmol/L ABG O2 Saturation 100.5 H (94-97) % ABG Hematocrit (34.0-46.0) % ABG Potassium (3.4-4.5) mmol/L ABG Ionized Calcium (4.5-5.3) mg/dL ABG Glucose (75-99) mg/dL Hemoglobin (11.4-16.0) gm/dL Sodium (137-145) mmol/L Chloride (98-107) mmol/L Carbon Dioxide (22-30) mmol/L BUN (7-17) mg/dL Creatinine (0.52-1.04) mg/dL Glucose (74-99) mg/dL POC Glucose (mg/dL) 140 H (70-110) mg/dL Calcium (8.4-10.2) mg/dL Magnesium (1.6-2.3) mg/dL AST (14-36) U/L Alkaline Phosphatase (38-126) U/L Total Protein (6.3-8.2) g/dL Albumin (3.5-5.0) g/dL Arterial Blood Potassium (3.4-4.5) mmol/L Arterial Blood Glucose (75-99) mg/dL Crossmatch 02/26/24 02/26/24 02/26/24 Range/Units 15:09 16:00 16:51 RBC (3.80-5.40) m/uL Hgb (11.4-16.0) gm/dL Hct (34.0-46.0) % MCHC (31.0-37.0) g/dL Neutrophils # (1.3-7.7) k/uL Lymphocytes # (1.0-4.8) k/uL ABG pH (7.35-7.45) ABG pCO2 (35-45) mmHg ABG pO2 (83-108) mmHg ABG HCO3 (21-25) mmol/L ABG O2 Saturation (94-97) % ABG Hematocrit (34.0-46.0) % ABG Potassium (3.4-4.5) mmol/L ABG Ionized Calcium (4.5-5.3) mg/dL ABG Glucose (75-99) mg/dL Hemoglobin (11.4-16.0) gm/dL Sodium (137-145) mmol/L Chloride (98-107) mmol/L Carbon Dioxide (22-30) mmol/L BUN (7-17) mg/dL Creatinine (0.52-1.04) mg/dL Glucose (74-99) mg/dL POC Glucose (mg/dL) 167 H 161 H 160 H (70-110) mg/dL Calcium (8.4-10.2) mg/dL Magnesium (1.6-2.3) mg/dL AST (14-36) U/L Alkaline Phosphatase (38-126) U/L Total Protein (6.3-8.2) g/dL Albumin (3.5-5.0) g/dL Arterial Blood Potassium (3.4-4.5) mmol/L Arterial Blood Glucose (75-99) mg/dL Crossmatch 02/26/24 02/26/24 02/26/24 Range/Units 17:30 18:07 18:55 RBC (3.80-5.40) m/uL Hgb (11.4-16.0) gm/dL Hct (34.0-46.0) % MCHC (31.0-37.0) g/dL Neutrophils # (1.3-7.7) k/uL Lymphocytes # (1.0-4.8) k/uL ABG pH (7.35-7.45) ABG pCO2 (35-45) mmHg ABG pO2 80 L (83-108) mmHg ABG HCO3 (21-25) mmol/L ABG O2 Saturation (94-97) % ABG Hematocrit (34.0-46.0) % ABG Potassium (3.4-4.5) mmol/L ABG Ionized Calcium (4.5-5.3) mg/dL ABG Glucose (75-99) mg/dL Hemoglobin (11.4-16.0) gm/dL Sodium (137-145) mmol/L Chloride (98-107) mmol/L Carbon Dioxide (22-30) mmol/L BUN (7-17) mg/dL Creatinine (0.52-1.04) mg/dL Glucose (74-99) mg/dL POC Glucose (mg/dL) 135 H 119 H (70-110) mg/dL Calcium (8.4-10.2) mg/dL Magnesium (1.6-2.3) mg/dL AST (14-36) U/L Alkaline Phosphatase (38-126) U/L Total Protein (6.3-8.2) g/dL Albumin (3.5-5.0) g/dL Arterial Blood Potassium (3.4-4.5) mmol/L Arterial Blood Glucose (75-99) mg/dL Crossmatch 02/26/24 02/26/24 02/26/24 Range/Units 19:52 20:10 20:58 RBC 3.00 L (3.80-5.40) m/uL Hgb 9.3 L (11.4-16.0) gm/dL Hct 28.3 L (34.0-46.0) % MCHC (31.0-37.0) g/dL Neutrophils # 8.1 H (1.3-7.7) k/uL Lymphocytes # 0.5 L (1.0-4.8) k/uL ABG pH (7.35-7.45) ABG pCO2 (35-45) mmHg ABG pO2 (83-108) mmHg ABG HCO3 (21-25) mmol/L ABG O2 Saturation (94-97) % ABG Hematocrit (34.0-46.0) % ABG Potassium (3.4-4.5) mmol/L ABG Ionized Calcium (4.5-5.3) mg/dL ABG Glucose (75-99) mg/dL Hemoglobin (11.4-16.0) gm/dL Sodium 134 L (137-145) mmol/L Chloride (98-107) mmol/L Carbon Dioxide (22-30) mmol/L BUN 57 H (7-17) mg/dL Creatinine 2.68 H (0.52-1.04) mg/dL Glucose (74-99) mg/dL POC Glucose (mg/dL) 146 H (70-110) mg/dL Calcium 8.2 L (8.4-10.2) mg/dL Magnesium (1.6-2.3) mg/dL AST (14-36) U/L Alkaline Phosphatase (38-126) U/L Total Protein (6.3-8.2) g/dL Albumin (3.5-5.0) g/dL Arterial Blood Potassium (3.4-4.5) mmol/L Arterial Blood Glucose (75-99) mg/dL Crossmatch 02/26/24 02/26/24 02/26/24 Range/Units 21:56 22:51 23:51 RBC (3.80-5.40) m/uL Hgb (11.4-16.0) gm/dL Hct (34.0-46.0) % MCHC (31.0-37.0) g/dL Neutrophils # (1.3-7.7) k/uL Lymphocytes # (1.0-4.8) k/uL ABG pH (7.35-7.45) ABG pCO2 (35-45) mmHg ABG pO2 (83-108) mmHg ABG HCO3 (21-25) mmol/L ABG O2 Saturation (94-97) % ABG Hematocrit (34.0-46.0) % ABG Potassium (3.4-4.5) mmol/L ABG Ionized Calcium (4.5-5.3) mg/dL ABG Glucose (75-99) mg/dL Hemoglobin (11.4-16.0) gm/dL Sodium (137-145) mmol/L Chloride (98-107) mmol/L Carbon Dioxide (22-30) mmol/L BUN (7-17) mg/dL Creatinine (0.52-1.04) mg/dL Glucose (74-99) mg/dL POC Glucose (mg/dL) 135 H 114 H 137 H (70-110) mg/dL Calcium (8.4-10.2) mg/dL Magnesium (1.6-2.3) mg/dL AST (14-36) U/L Alkaline Phosphatase (38-126) U/L Total Protein (6.3-8.2) g/dL Albumin (3.5-5.0) g/dL Arterial Blood Potassium (3.4-4.5) mmol/L Arterial Blood Glucose (75-99) mg/dL Crossmatch 02/27/24 02/27/24 02/27/24 Range/Units 00:59 01:57 02:59 RBC (3.80-5.40) m/uL Hgb (11.4-16.0) gm/dL Hct (34.0-46.0) % MCHC (31.0-37.0) g/dL Neutrophils # (1.3-7.7) k/uL Lymphocytes # (1.0-4.8) k/uL ABG pH (7.35-7.45) ABG pCO2 (35-45) mmHg ABG pO2 (83-108) mmHg ABG HCO3 (21-25) mmol/L ABG O2 Saturation (94-97) % ABG Hematocrit (34.0-46.0) % ABG Potassium (3.4-4.5) mmol/L ABG Ionized Calcium (4.5-5.3) mg/dL ABG Glucose (75-99) mg/dL Hemoglobin (11.4-16.0) gm/dL Sodium (137-145) mmol/L Chloride (98-107) mmol/L Carbon Dioxide (22-30) mmol/L BUN (7-17) mg/dL Creatinine (0.52-1.04) mg/dL Glucose (74-99) mg/dL POC Glucose (mg/dL) 126 H 112 H 133 H (70-110) mg/dL Calcium (8.4-10.2) mg/dL Magnesium (1.6-2.3) mg/dL AST (14-36) U/L Alkaline Phosphatase (38-126) U/L Total Protein (6.3-8.2) g/dL Albumin (3.5-5.0) g/dL Arterial Blood Potassium (3.4-4.5) mmol/L Arterial Blood Glucose (75-99) mg/dL Crossmatch 02/27/24 02/27/24 02/27/24 Range/Units 03:55 03:55 03:56 RBC 3.22 L (3.80-5.40) m/uL Hgb 9.4 L (11.4-16.0) gm/dL Hct 30.8 L (34.0-46.0) % MCHC 30.7 L (31.0-37.0) g/dL Neutrophils # (1.3-7.7) k/uL Lymphocytes # 0.6 L (1.0-4.8) k/uL ABG pH (7.35-7.45) ABG pCO2 (35-45) mmHg ABG pO2 (83-108) mmHg ABG HCO3 (21-25) mmol/L ABG O2 Saturation (94-97) % ABG Hematocrit (34.0-46.0) % ABG Potassium (3.4-4.5) mmol/L ABG Ionized Calcium (4.5-5.3) mg/dL ABG Glucose (75-99) mg/dL Hemoglobin (11.4-16.0) gm/dL Sodium 134 L (137-145) mmol/L Chloride (98-107) mmol/L Carbon Dioxide 21 L (22-30) mmol/L BUN 57 H (7-17) mg/dL Creatinine 2.61 H (0.52-1.04) mg/dL Glucose 125 H (74-99) mg/dL POC Glucose (mg/dL) 142 H (70-110) mg/dL Calcium 8.3 L (8.4-10.2) mg/dL Magnesium (1.6-2.3) mg/dL AST 51 H (14-36) U/L Alkaline Phosphatase 135 H (38-126) U/L Total Protein 4.9 L (6.3-8.2) g/dL Albumin 2.2 L (3.5-5.0) g/dL Arterial Blood Potassium (3.4-4.5) mmol/L Arterial Blood Glucose (75-99) mg/dL Crossmatch 02/27/24 02/27/24 02/27/24 Range/Units 05:04 06:51 08:08 RBC (3.80-5.40) m/uL Hgb (11.4-16.0) gm/dL Hct (34.0-46.0) % MCHC (31.0-37.0) g/dL Neutrophils # (1.3-7.7) k/uL Lymphocytes # (1.0-4.8) k/uL ABG pH (7.35-7.45) ABG pCO2 (35-45) mmHg ABG pO2 (83-108) mmHg ABG HCO3 (21-25) mmol/L ABG O2 Saturation (94-97) % ABG Hematocrit (34.0-46.0) % ABG Potassium (3.4-4.5) mmol/L ABG Ionized Calcium (4.5-5.3) mg/dL ABG Glucose (75-99) mg/dL Hemoglobin (11.4-16.0) gm/dL Sodium (137-145) mmol/L Chloride (98-107) mmol/L Carbon Dioxide (22-30) mmol/L BUN (7-17) mg/dL Creatinine (0.52-1.04) mg/dL Glucose (74-99) mg/dL POC Glucose (mg/dL) 122 H 120 H 140 H (70-110) mg/dL Calcium (8.4-10.2) mg/dL Magnesium (1.6-2.3) mg/dL AST (14-36) U/L Alkaline Phosphatase (38-126) U/L Total Protein (6.3-8.2) g/dL Albumin (3.5-5.0) g/dL Arterial Blood Potassium (3.4-4.5) mmol/L Arterial Blood Glucose (75-99) mg/dL Crossmatch 02/27/24 02/27/24 02/27/24 Range/Units 09:03 10:03 11:04 RBC (3.80-5.40) m/uL Hgb (11.4-16.0) gm/dL Hct (34.0-46.0) % MCHC (31.0-37.0) g/dL Neutrophils # (1.3-7.7) k/uL Lymphocytes # (1.0-4.8) k/uL ABG pH (7.35-7.45) ABG pCO2 (35-45) mmHg ABG pO2 (83-108) mmHg ABG HCO3 (21-25) mmol/L ABG O2 Saturation (94-97) % ABG Hematocrit (34.0-46.0) % ABG Potassium (3.4-4.5) mmol/L ABG Ionized Calcium (4.5-5.3) mg/dL ABG Glucose (75-99) mg/dL Hemoglobin (11.4-16.0) gm/dL Sodium (137-145) mmol/L Chloride (98-107) mmol/L Carbon Dioxide (22-30) mmol/L BUN (7-17) mg/dL Creatinine (0.52-1.04) mg/dL Glucose (74-99) mg/dL POC Glucose (mg/dL) 141 H 137 H 127 H (70-110) mg/dL Calcium (8.4-10.2) mg/dL Magnesium (1.6-2.3) mg/dL AST (14-36) U/L Alkaline Phosphatase (38-126) U/L Total Protein (6.3-8.2) g/dL Albumin (3.5-5.0) g/dL Arterial Blood Potassium (3.4-4.5) mmol/L Arterial Blood Glucose (75-99) mg/dL Crossmatch Assessment and Plan Plan: Assessment: 1. Acute kidney injury secondary to ATN secondary to cardiorenal syndrome. Creatinine fairly stable at 2.61. Creatinine as low as 0.98 dated March 01, 2022. No hydronephrosis noted on kidney ultrasound. Serologies negative. 2. Acute on chronic systolic CHF with ejection fraction of 20 to 25% with moderate to severe mitral regurgitation and mild pulmonary hypertension. 3. Volume overload. Improved with diuresis. 4. Anemia. Iron deficiency noted. Status post IV iron. Seen by GI. Status post blood transfusion this admission. Also received IV DDAVP. 5. Metabolic acidosis secondary to acute kidney injury and IV fluids. 6. Hypervolemic hyponatremia. Also component of hypertonicity from hyperglycemia. Stable. 7. Urinary retention status post [place] catheter placement. Plan: IV fluids discontinued. Currently on IV amiodarone and dopamine. Avoid nephrotoxins. Continue to monitor renal function and urine output. Repeat iron studies.
[2024-02-27 12:06] LABS: Glucose,Whole Blood 116 mg/dL (70-110)
[2024-02-27] MEDS: ALBUMIN HUMAN 5% 250 ML in EMPTY BAG 1 BAG IVPB PRN (12:34)
[2024-02-27] MEDS: ATORVASTATIN 40 MG TAB PO SCH (13:03)
--- NOTE | 2024-02-27 13:04 | P.PN ---
Subjective Progress Note Date: 02/27/24 Patient 02/26/2024, the patient is being seen immediately after she arrived to the intensive care unit. This patient has been in the hospital for almost 2 weeks. She sustained an acute non-ST segment elevation myocardial infarction. She has severe ischemic cardiomyopathy with an ejection fraction of 20 to 25% along with moderate to severe mitral regurgitation. The patient was optimized and subsequently the patient was taken to the operating room for cardiac revascularization surgery. The patient is known to have COPD, diabetes mellitus type 1, hypertension hyperlipidemia previous history of CVA and hypothyroidism along with fibromyalgia. She is a chronic smoker who carries [id number] smoki ng history. The patient underwent off-pump coronary bypass surgery x 4 with sequential RUSSO to LAD and diagonal and SVG to PDA and second obtuse marginal and closure of the left atrial appendage. An intra-aortic balloon pump was also inserted intraoperatively. At this point in time, the patient is intubated and on mechanical ventilator. The patient was on assist-control mode of mechanical ventilation at the rate of 14, tidal volume of 400 with an FiO2 of 100% with a PEEP of 5. The patient had an initial blood gas that showed a pH of 7.34 with pCO2 of 46 and pO2 of 265. Based on that, the FiO2 was gradually weaned off and the respiratory rate was increased up to 22. Subsequently, the patient remained hemodynamically stable. In fact, her current cardiac output is at 4.8 with an index of 2.6 while being augmented with a one-to-one intra-aortic balloon pump support with a mean augmented arterial pressure of 83-85. She has been on nitroglycerin drip which is running at 5 mg/min and she is also on dopamine at 3 mcg/kg/min. The patient is producing adequate amount of cardiac output. Cardiac rhythm is sinus and the patient is currently on amiodarone. The chest x-ray that was done in the ICU shows adequate expansion of both lungs. The patient has a right IJ [place] catheter in place and ET tube is around 2 cm above the anthony and the patient has a right pleural left pleural and mediastinal chest tube. Output from the chest tubes have been essentially low in the order of 100-150 cc from the chest tube just arrived from the operating room. Based on her stable condition, the patient was taken gradually off the propofol and the patient is currently undergoing a spontaneous breathing trial with a pressure support of 5 and a PEEP of 5. The weaning parameters were karie quate. The blood work today postop showed a sodium level of 136 with a potassium level of 4.2, BUN is 57 with a creatinine of 2.6 and the patient has a white cell count of 4.9 with a hemoglobin of 9 and a platelet count of 252. She is arousable and she is following commands and moving all 4 extremities without any limitation. She is currently afebrile. 02/27/2024, patient is being seen for a follow-up. Noted the patient is postop day #1 following a coronary artery bypass surgery. The patient underwent an off-pump four-vessel bypass surgery. She required intra-aortic balloon pump support postoperatively. The patient is currently doing well. She is extubated on 2 L of oxygen by nasal cannula. Intra-aortic balloon pump was removed today. [place] catheter still in place. PA pressures of 37/60. CVP is at 13. Cardiac output is at 5.1 with an index of 2.7. The left lower chest tube has drained 460 cc over the past 24 hours, right lower chest tube and drain 240 cc in the mediastinum has drained 200 cc. The patient is still on nitroglycerin drip at low-dose. Remains on insulin drip at 1.5 units an hour. Remains on a amiodarone maintenance of 0.5 mg/min and the patient is on a normal sinus rhythm. Dopamine is running at 2 mcg/kg/min. No specific complaints. Resting comfortably in bed. Chest x-ray shows no evidence of any pneumothorax. Lungs are well-expanded and the tubes are in place. WBC count of 8.1 with a hemoglobin 9.4 and a platelet count of 328. Sodium is at 134, BUN is 57 with a creatinine of 2.6 and a serum bicarb is at 21. Blood sugars are under adequate control at this point in time while being on insulin drip. Awake and alert and communicating. Objective - Vital Signs Vital signs: Vital Signs Temp 99.3 F 02/27/24 08:30 Pulse 93 02/27/24 09:00 Resp 20 02/27/24 09:00 BP 129/68 02/26/24 05:58 Pulse Ox 91 L 02/27/24 09:00 FiO2 40 05/20/24 16:39 Intake & Output 02/26/24 02/27/24 02/27/24 18:59 06:59 18:59 Intake Total 4734.532 2374.227 105.732 Output Total 1300 1075 95 Balance -186.769 -20.773 10.732 Weight 76.8 kg Intake: IV 367 1037 79 .9NS Cardiac Output 70 270 20 .9NS Pressure Bag 54 117 9 Lactated Ringers 1,000 ml 240 650 50 @ 20 mls/hr IV .Q24H [facility]ND[facility] Rx#:[id number] Intake, IV Titration 436.231 17.227 26.732 Amount Insulin Regular 100 unit 12.928 17.227 0.657 In Sodium Chloride 0.9% 100 ml @ Per Protocol IV .Q0M [facility]ND[facility] Rx#:[id number] Lactated Ringers 1,000 ml 50 @ 20 mls/hr IV .Q24H [facility] Rx#:[id number] Magnesium Sulfate-D5w Pmx 200 1 gm In Dextrose/Water 1 100ml.bag @ 100 mls/hr IVPB Q1H [facility] Rx#: [id number] Nitroglycerin-D5w Pmx 50 26.075 mg In Dextrose/Water 1 250ml.bag @ 5 MCG/MIN 1.5 mls/hr IV .Q24H [facility] Rx#: [id number] ceFAZolin 2 gm In Sodium 150 Chloride 0.9% 50 ml @ 100 mls/hr IVPB Q8HR [facility] Rx# :[id number] propofoL 1,000 mg In 23.303 Empty Bag 1 bag @ Titrate IV .Q0M LYNDSAY Rx#: [id number] Blood Product 310 Rc As-1 Unit 310 [id number] Output: Chest Tube Drainage 375 540 70 Left Pleural Chest Tube 175 270 30 Mediastinal Chest Tube 120 140 10 Right Pleural Chest Tube 80 130 30 Drainage 50 0 Left Calf 50 0 Urine 525 375 25 Emesis 110 Estimated Blood Loss 400 Other: Voiding Method Indwelling Catheter Indwelling Catheter ABP, PAP, CO, CI - Last Documented Arterial Blood Pressure 141/56 Pulmonary Artery Pressure 42/25 Cardiac Output 5.1 Cardiac Index 2.7 - Exam GENERAL EXAM: Alert, 58-year-old white female, resting comfortably in bed, the patient is awake and oriented x 3 on 2 L of oxygen by nasal cannula, extubated HEAD: Normocephalic and atraumatic EYES: Normal reaction of pupils, equal size. NOSE: Clear with pink turbinates. THROAT: No erythema or exudates. NECK: No masses, no JVD. CHEST: No chest wall deformity. LUNGS: The patient has a mediastinal, right lower and left lower chest tube. Thoracotomy scar is dry clean and intact. Breath sounds equal and symmetrical bilaterally. CVS: S1 and S2 normal with no audible murmur, regular rhythm. No extra heart sounds ABDOMEN: No hepatosplenomegaly, active bowel sounds, no guarding or rigidity. SPINE: No scoliosis or deformity SKIN: No rashes CENTRAL NERVOUS SYSTEM: No focal deficits, tone is normal in all 4 extremities. EXTREMITIES: There is bilateral lower has equal and symmetrical pulses in the lower extremities bilaterally. The patient has amputation of the right great toe. Extremities are warm. The patient has a TERRA drain in the left lower extremity. The patient also has an arterial line in the left upper extremity radial artery. - Labs CBC & Chem 7: 02/27/24 03:55 02/27/24 03:55 Labs: Abnormal Lab Results - Last 24 Hours (Table) 02/25/24 02/26/24 02/26/24 Range/Units 06:00 09:24 10:13 RBC (3.80-5.40) m/uL Hgb (11.4-16.0) gm/dL Hct (34.0-46.0) % MCHC (31.0-37.0) g/dL Neutrophils # (1.3-7.7) k/uL Lymphocytes # (1.0-4.8) k/uL ABG pH (7.35-7.45) ABG pCO2 51 H 49 H (35-45) mmHg ABG pO2 137 H 125 H (83-108) mmHg ABG HCO3 30 H 29 H (21-25) mmol/L ABG O2 Saturation 99.1 H 98.9 H (94-97) % ABG Hematocrit 23 L 24 L (34.0-46.0) % ABG Potassium 3.3 L 3.2 L (3.4-4.5) mmol/L ABG Ionized Calcium (4.5-5.3) mg/dL ABG Glucose 101 H 101 H (75-99) mg/dL Hemoglobin 7.3 L 7.7 L (11.4-16.0) gm/dL Sodium (137-145) mmol/L Chloride (98-107) mmol/L Carbon Dioxide (22-30) mmol/L BUN (7-17) mg/dL Creatinine (0.52-1.04) mg/dL Glucose (74-99) mg/dL POC Glucose (mg/dL) (70-110) mg/dL Calcium (8.4-10.2) mg/dL Magnesium (1.6-2.3) mg/dL AST (14-36) U/L Alkaline Phosphatase (38-126) U/L Total Protein (6.3-8.2) g/dL Albumin (3.5-5.0) g/dL Arterial Blood Potassium 3.3 L 3.2 L (3.4-4.5) mmol/L Arterial Blood Glucose 101 H 101 H (75-99) mg/dL Crossmatch See Detail 02/26/24 02/26/24 02/26/24 Range/Units 10:49 11:28 12:01 RBC (3.80-5.40) m/uL Hgb (11.4-16.0) gm/dL Hct (34.0-46.0) % MCHC (31.0-37.0) g/dL Neutrophils # (1.3-7.7) k/uL Lymphocytes # (1.0-4.8) k/uL ABG pH 7.49 H 7.51 H (7.35-7.45) ABG pCO2 34 L (35-45) mmHg ABG pO2 186 H 213 H 189 H (83-108) mmHg ABG HCO3 29 H 28 H 27 H (21-25) mmol/L ABG O2 Saturation >99.4 H >99.4 H 99.3 H (94-97) % ABG Hematocrit 26 L 25 L 24 L (34.0-46.0) % ABG Potassium (3.4-4.5) mmol/L ABG Ionized Calcium 4.4 L (4.5-5.3) mg/dL ABG Glucose 71 L (75-99) mg/dL Hemoglobin 8.3 L 8.0 L 7.9 L (11.4-16.0) gm/dL Sodium (137-145) mmol/L Chloride (98-107) mmol/L Carbon Dioxide (22-30) mmol/L BUN (7-17) mg/dL Creatinine (0.52-1.04) mg/dL Glucose (74-99) mg/dL POC Glucose (mg/dL) (70-110) mg/dL Calcium (8.4-10.2) mg/dL Magnesium (1.6-2.3) mg/dL AST (14-36) U/L Alkaline Phosphatase (38-126) U/L Total Protein (6.3-8.2) g/dL Albumin (3.5-5.0) g/dL Arterial Blood Potassium (3.4-4.5) mmol/L Arterial Blood Glucose 71 L (75-99) mg/dL Crossmatch 02/26/24 02/26/24 02/26/24 Range/Units 12:45 13:42 13:42 RBC 2.97 L (3.80-5.40) m/uL Hgb 9.0 L (11.4-16.0) gm/dL Hct 28.3 L (34.0-46.0) % MCHC (31.0-37.0) g/dL Neutrophils # (1.3-7.7) k/uL Lymphocytes # 0.7 L (1.0-4.8) k/uL ABG pH (7.35-7.45) ABG pCO2 (35-45) mmHg ABG pO2 239 H (83-108) mmHg ABG HCO3 27 H (21-25) mmol/L ABG O2 Saturation 99.4 H (94-97) % ABG Hematocrit 24 L (34.0-46.0) % ABG Potassium 3.3 L (3.4-4.5) mmol/L ABG Ionized Calcium (4.5-5.3) mg/dL ABG Glucose (75-99) mg/dL Hemoglobin 8.0 L (11.4-16.0) gm/dL Sodium 136 L (137-145) mmol/L Chloride 109 H (98-107) mmol/L Carbon Dioxide (22-30) mmol/L BUN 57 H (7-17) mg/dL Creatinine 2.65 H (0.52-1.04) mg/dL Glucose (74-99) mg/dL POC Glucose (mg/dL) (70-110) mg/dL Calcium 7.6 L (8.4-10.2) mg/dL Magnesium 1.5 L (1.6-2.3) mg/dL AST 41 H (14-36) U/L Alkaline Phosphatase 128 H (38-126) U/L Total Protein 4.6 L (6.3-8.2) g/dL Albumin 2.1 L (3.5-5.0) g/dL Arterial Blood Potassium 3.3 L (3.4-4.5) mmol/L Arterial Blood Glucose (75-99) mg/dL Crossmatch 02/26/24 02/26/24 02/26/24 Range/Units 14:40 14:44 14:51 RBC 3.03 L (3.80-5.40) m/uL Hgb 9.0 L (11.4-16.0) gm/dL Hct 28.7 L (34.0-46.0) % MCHC (31.0-37.0) g/dL Neutrophils # 8.0 H (1.3-7.7) k/uL Lymphocytes # 0.6 L (1.0-4.8) k/uL ABG pH 7.34 L (7.35-7.45) ABG pCO2 46 H (35-45) mmHg ABG pO2 265 H (83-108) mmHg ABG HCO3 (21-25) mmol/L ABG O2 Saturation 100.5 H (94-97) % ABG Hematocrit (34.0-46.0) % ABG Potassium (3.4-4.5) mmol/L ABG Ionized Calcium (4.5-5.3) mg/dL ABG Glucose (75-99) mg/dL Hemoglobin (11.4-16.0) gm/dL Sodium (137-145) mmol/L Chloride (98-107) mmol/L Carbon Dioxide (22-30) mmol/L BUN (7-17) mg/dL Creatinine (0.52-1.04) mg/dL Glucose (74-99) mg/dL POC Glucose (mg/dL) 140 H (70-110) mg/dL Calcium (8.4-10.2) mg/dL Magnesium (1.6-2.3) mg/dL AST (14-36) U/L Alkaline Phosphatase (38-126) U/L Total Protein (6.3-8.2) g/dL Albumin (3.5-5.0) g/dL Arterial Blood Potassium (3.4-4.5) mmol/L Arterial Blood Glucose (75-99) mg/dL Crossmatch 02/26/24 02/26/24 02/26/24 Range/Units 15:09 16:00 16:51 RBC (3.80-5.40) m/uL Hgb (11.4-16.0) gm/dL Hct (34.0-46.0) % MCHC (31.0-37.0) g/dL Neutrophils # (1.3-7.7) k/uL Lymphocytes # (1.0-4.8) k/uL ABG pH (7.35-7.45) ABG pCO2 (35-45) mmHg ABG pO2 (83-108) mmHg ABG HCO3 (21-25) mmol/L ABG O2 Saturation (94-97) % ABG Hematocrit (34.0-46.0) % ABG Potassium (3.4-4.5) mmol/L ABG Ionized Calcium (4.5-5.3) mg/dL ABG Glucose (75-99) mg/dL Hemoglobin (11.4-16.0) gm/dL Sodium (137-145) mmol/L Chloride (98-107) mmol/L Carbon Dioxide (22-30) mmol/L BUN (7-17) mg/dL Creatinine (0.52-1.04) mg/dL Glucose (74-99) mg/dL POC Glucose (mg/dL) 167 H 161 H 160 H (70-110) mg/dL Calcium (8.4-10.2) mg/dL Magnesium (1.6-2.3) mg/dL AST (14-36) U/L Alkaline Phosphatase (38-126) U/L Total Protein (6.3-8.2) g/dL Albumin (3.5-5.0) g/dL Arterial Blood Potassium (3.4-4.5) mmol/L Arterial Blood Glucose (75-99) mg/dL Crossmatch 02/26/24 02/26/24 02/26/24 Range/Units 17:30 18:07 18:55 RBC (3.80-5.40) m/uL Hgb (11.4-16.0) gm/dL Hct (34.0-46.0) % MCHC (31.0-37.0) g/dL Neutrophils # (1.3-7.7) k/uL Lymphocytes # (1.0-4.8) k/uL ABG pH (7.35-7.45) ABG pCO2 (35-45) mmHg ABG pO2 80 L (83-108) mmHg ABG HCO3 (21-25) mmol/L ABG O2 Saturation (94-97) % ABG Hematocrit (34.0-46.0) % ABG Potassium (3.4-4.5) mmol/L ABG Ionized Calcium (4.5-5.3) mg/dL ABG Glucose (75-99) mg/dL Hemoglobin (11.4-16.0) gm/dL Sodium (137-145) mmol/L Chloride (98-107) mmol/L Carbon Dioxide (22-30) mmol/L BUN (7-17) mg/dL Creatinine (0.52-1.04) mg/dL Glucose (74-99) mg/dL POC Glucose (mg/dL) 135 H 119 H (70-110) mg/dL Calcium (8.4-10.2) mg/dL Magnesium (1.6-2.3) mg/dL AST (14-36) U/L Alkaline Phosphatase (38-126) U/L Total Protein (6.3-8.2) g/dL Albumin (3.5-5.0) g/dL Arterial Blood Potassium (3.4-4.5) mmol/L Arterial Blood Glucose (75-99) mg/dL Crossmatch 02/26/24 02/26/24 02/26/24 Range/Units 19:52 20:10 20:58 RBC 3.00 L (3.80-5.40) m/uL Hgb 9.3 L (11.4-16.0) gm/dL Hct 28.3 L (34.0-46.0) % MCHC (31.0-37.0) g/dL Neutrophils # 8.1 H (1.3-7.7) k/uL Lymphocytes # 0.5 L (1.0-4.8) k/uL ABG pH (7.35-7.45) ABG pCO2 (35-45) mmHg ABG pO2 (83-108) mmHg ABG HCO3 (21-25) mmol/L ABG O2 Saturation (94-97) % ABG Hematocrit (34.0-46.0) % ABG Potassium (3.4-4.5) mmol/L ABG Ionized Calcium (4.5-5.3) mg/dL ABG Glucose (75-99) mg/dL Hemoglobin (11.4-16.0) gm/dL Sodium 134 L (137-145) mmol/L Chloride (98-107) mmol/L Carbon Dioxide (22-30) mmol/L BUN 57 H (7-17) mg/dL Creatinine 2.68 H (0.52-1.04) mg/dL Glucose (74-99) mg/dL POC Glucose (mg/dL) 146 H (70-110) mg/dL Calcium 8.2 L (8.4-10.2) mg/dL Magnesium (1.6-2.3) mg/dL AST (14-36) U/L Alkaline Phosphatase (38-126) U/L Total Protein (6.3-8.2) g/dL Albumin (3.5-5.0) g/dL Arterial Blood Potassium (3.4-4.5) mmol/L Arterial Blood Glucose (75-99) mg/dL Crossmatch 02/26/24 02/26/24 02/26/24 Range/Units 21:56 22:51 23:51 RBC (3.80-5.40) m/uL Hgb (11.4-16.0) gm/dL Hct (34.0-46.0) % MCHC (31.0-37.0) g/dL Neutrophils # (1.3-7.7) k/uL Lymphocytes # (1.0-4.8) k/uL ABG pH (7.35-7.45) ABG pCO2 (35-45) mmHg ABG pO2 (83-108) mmHg ABG HCO3 (21-25) mmol/L ABG O2 Saturation (94-97) % ABG Hematocrit (34.0-46.0) % ABG Potassium (3.4-4.5) mmol/L ABG Ionized Calcium (4.5-5.3) mg/dL ABG Glucose (75-99) mg/dL Hemoglobin (11.4-16.0) gm/dL Sodium (137-145) mmol/L Chloride (98-107) mmol/L Carbon Dioxide (22-30) mmol/L BUN (7-17) mg/dL Creatinine (0.52-1.04) mg/dL Glucose (74-99) mg/dL POC Glucose (mg/dL) 135 H 114 H 137 H (70-110) mg/dL Calcium (8.4-10.2) mg/dL Magnesium (1.6-2.3) mg/dL AST (14-36) U/L Alkaline Phosphatase (38-126) U/L Total Protein (6.3-8.2) g/dL Albumin (3.5-5.0) g/dL Arterial Blood Potassium (3.4-4.5) mmol/L Arterial Blood Glucose (75-99) mg/dL Crossmatch 02/27/24 02/27/24 02/27/24 Range/Units 00:59 01:57 02:59 RBC (3.80-5.40) m/uL Hgb (11.4-16.0) gm/dL Hct (34.0-46.0) % MCHC (31.0-37.0) g/dL Neutrophils # (1.3-7.7) k/uL Lymphocytes # (1.0-4.8) k/uL ABG pH (7.35-7.45) ABG pCO2 (35-45) mmHg ABG pO2 (83-108) mmHg ABG HCO3 (21-25) mmol/L ABG O2 Saturation (94-97) % ABG Hematocrit (34.0-46.0) % ABG Potassium (3.4-4.5) mmol/L ABG Ionized Calcium (4.5-5.3) mg/dL ABG Glucose (75-99) mg/dL Hemoglobin (11.4-16.0) gm/dL Sodium (137-145) mmol/L Chloride (98-107) mmol/L Carbon Dioxide (22-30) mmol/L BUN (7-17) mg/dL Creatinine (0.52-1.04) mg/dL Glucose (74-99) mg/dL POC Glucose (mg/dL) 126 H 112 H 133 H (70-110) mg/dL Calcium (8.4-10.2) mg/dL Magnesium (1.6-2.3) mg/dL AST (14-36) U/L Alkaline Phosphatase (38-126) U/L Total Protein (6.3-8.2) g/dL Albumin (3.5-5.0) g/dL Arterial Blood Potassium (3.4-4.5) mmol/L Arterial Blood Glucose (75-99) mg/dL Crossmatch 02/27/24 02/27/24 02/27/24 Range/Units 03:55 03:55 03:56 RBC 3.22 L (3.80-5.40) m/uL Hgb 9.4 L (11.4-16.0) gm/dL Hct 30.8 L (34.0-46.0) % MCHC 30.7 L (31.0-37.0) g/dL Neutrophils # (1.3-7.7) k/uL Lymphocytes # 0.6 L (1.0-4.8) k/uL ABG pH (7.35-7.45) ABG pCO2 (35-45) mmHg ABG pO2 (83-108) mmHg ABG HCO3 (21-25) mmol/L ABG O2 Saturation (94-97) % ABG Hematocrit (34.0-46.0) % ABG Potassium (3.4-4.5) mmol/L ABG Ionized Calcium (4.5-5.3) mg/dL ABG Glucose (75-99) mg/dL Hemoglobin (11.4-16.0) gm/dL Sodium 134 L (137-145) mmol/L Chloride (98-107) mmol/L Carbon Dioxide 21 L (22-30) mmol/L BUN 57 H (7-17) mg/dL Creatinine 2.61 H (0.52-1.04) mg/dL Glucose 125 H (74-99) mg/dL POC Glucose (mg/dL) 142 H (70-110) mg/dL Calcium 8.3 L (8.4-10.2) mg/dL Magnesium (1.6-2.3) mg/dL AST 51 H (14-36) U/L Alkaline Phosphatase 135 H (38-126) U/L Total Protein 4.9 L (6.3-8.2) g/dL Albumin 2.2 L (3.5-5.0) g/dL Arterial Blood Potassium (3.4-4.5) mmol/L Arterial Blood Glucose (75-99) mg/dL Crossmatch 02/27/24 02/27/24 02/27/24 Range/Units 05:04 06:51 08:08 RBC (3.80-5.40) m/uL Hgb (11.4-16.0) gm/dL Hct (34.0-46.0) % MCHC (31.0-37.0) g/dL Neutrophils # (1.3-7.7) k/uL Lymphocytes # (1.0-4.8) k/uL ABG pH (7.35-7.45) ABG pCO2 (35-45) mmHg ABG pO2 (83-108) mmHg ABG HCO3 (21-25) mmol/L ABG O2 Saturation (94-97) % ABG Hematocrit (34.0-46.0) % ABG Potassium (3.4-4.5) mmol/L ABG Ionized Calcium (4.5-5.3) mg/dL ABG Glucose (75-99) mg/dL Hemoglobin (11.4-16.0) gm/dL Sodium (137-145) mmol/L Chloride (98-107) mmol/L Carbon Dioxide (22-30) mmol/L BUN (7-17) mg/dL Creatinine (0.52-1.04) mg/dL Glucose (74-99) mg/dL POC Glucose (mg/dL) 122 H 120 H 140 H (70-110) mg/dL Calcium (8.4-10.2) mg/dL Magnesium (1.6-2.3) mg/dL AST (14-36) U/L Alkaline Phosphatase (38-126) U/L Total Protein (6.3-8.2) g/dL Albumin (3.5-5.0) g/dL Arterial Blood Potassium (3.4-4.5) mmol/L Arterial Blood Glucose (75-99) mg/dL Crossmatch 02/27/24 Range/Units 09:03 RBC (3.80-5.40) m/uL Hgb (11.4-16.0) gm/dL Hct (34.0-46.0) % MCHC (31.0-37.0) g/dL Neutrophils # (1.3-7.7) k/uL Lymphocytes # (1.0-4.8) k/uL ABG pH (7.35-7.45) ABG pCO2 (35-45) mmHg ABG pO2 (83-108) mmHg ABG HCO3 (21-25) mmol/L ABG O2 Saturation (94-97) % ABG Hematocrit (34.0-46.0) % ABG Potassium (3.4-4.5) mmol/L ABG Ionized Calcium (4.5-5.3) mg/dL ABG Glucose (75-99) mg/dL Hemoglobin (11.4-16.0) gm/dL Sodium (137-145) mmol/L Chloride (98-107) mmol/L Carbon Dioxide (22-30) mmol/L BUN (7-17) mg/dL Creatinine (0.52-1.04) mg/dL Glucose (74-99) mg/dL POC Glucose (mg/dL) 141 H (70-110) mg/dL Calcium (8.4-10.2) mg/dL Magnesium (1.6-2.3) mg/dL AST (14-36) U/L Alkaline Phosphatase (38-126) U/L Total Protein (6.3-8.2) g/dL Albumin (3.5-5.0) g/dL Arterial Blood Potassium (3.4-4.5) mmol/L Arterial Blood Glucose (75-99) mg/dL Crossmatch Assessment and Plan Assessment: Multivessel coronary artery disease and the patient is status post acute non-ST elevation GA, the patient underwent four-vessel bypass surgery off-pump which included sequential RUSSO to To the LAD and diagonal and SVG to PDA and second obtuse marginal branch and the patient is currently postop day day #1. The intra-aortic balloon pump has been removed. The patient is clinically and hemodynamically stable. The patient was extubated yesterday without any major difficulties. Cardiac rhythm is stable and hemodynamic parameters are all stable. Remains on low-dose nitroglycerin drip at this point. Remains on amiodarone maintenance at 0.5 mg/min. Postthoracotomy, currently intubated on the mechanical ventilator. Chest tubes are all in place. Extubated to 2 L of oxygen by nasal cannula without any major difficulties. Ischemic cardiomyopathy with an estimated left ventricular ejection fraction severely impaired at 20 to 25% as well as moderate to severe mitral valve regurgitation Normocytic normochromic anemia, Chronic kidney disease the patient is renal function is stable Chronic obstructive pulmonary disease, stable Diabetes mellitus type 1, had HbA1c at the time of admission was 7.1 History of hyperlipidemia History of hypertension History of CVA/TIA History of hypothyroidism History of fibromyalgia History of GERD Mildly elevated LFTs, hepatitis panel nonreactive Former tobacco smoker as of 55 days ago, before this 1/2 pack/day or approximately 15-year pack history' Previous history of methamphetamine use Plan: Oxygen at 2 L/min nasal cannula and encourage use of incentive spirometer. Mediastinal chest tube can be removed today. Right and left pleural chest tube In place Intra-aortic aortic balloon pump has been removed Continue dopamine Continue nitroglycerin drip, this will be weaned off and discontinued Continue monitoring the cardiac output and index. The hemodynamic parameters are adequate and the [place]-Jamal catheter be kept in place for another 24 hours Continue insulin drip for blood sugar management of the insulin drip is running at 1 point 5 units an hour Continue amiodarone for post A-fib prophylaxis Monitor renal function Will continue to follow and make further recommendations based on her progress.
[2024-02-27 13:13] LABS: Glucose,Whole Blood 129 mg/dL (70-110)
[2024-02-27] MEDS: ASPIRIN 325 MG TAB PO SCH (13:58)
[2024-02-27 14:10] LABS: Glucose,Whole Blood 127 mg/dL (70-110)
[2024-02-27 15:43] LABS: Glucose,Whole Blood 128 mg/dL (70-110)
[2024-02-27 16:08] LABS: % Iron Saturation 9.15 (12.00-45.00)
[2024-02-27 17:12] LABS: Glucose,Whole Blood 153 mg/dL (70-110)
[2024-02-27 18:28] LABS: Glucose,Whole Blood 139 mg/dL (70-110)
[2024-02-27 20:01] LABS: Glucose,Whole Blood 140 mg/dL (70-110)
[2024-02-27] MEDS: traZODone HCL 50 MG TAB PO SCH (20:22)
[2024-02-27] MEDS: SENNOSIDES-DOCUSATE SODIUM 1 EACH TAB PO SCH (20:22)
--- NOTE | 2024-02-27 21:07 | P.PN ---
Subjective Progress Note Date: 02/27/24 This is a pleasant 58 years old female with past medical history of multiple medical problems as below She has been incarcerated for 52 days, there is officer at bedside. Patient presents because of shortness of breath and exertional dyspnea has for the last 2 days, she states she hears herself wheezing when she lies down. Currently she is breathing quietly. She is complaining for mild chest pain on the left side, nonradiating nonspecific, feels much better now and very mild. She has occasional cough but no phlegm. Also she is complaining from upset stomach but no diarrhea or vomiting She complains from decreased urination but no dysuria or urgency. She has mild headache feels generally weak but no dizziness or blurry vision. She used to smoke half pack per day before she got incarcerated No alcohol or illicit drugs. She follow-up with her log snaker Dr. Donal Herrera and fish net maker Dr. Babb who examined her about 2 months ago where she has some mild ulcer In the bottom of her right total This morning patient has low-grade fever 100.2 She is also mildly tachypneic around 22 She is saturating 93% on 2 L oxygen via nasal cannula Labs reviewed showing hemoglobin of 7.7, rest of CBC is unremarkable BMP liver enzymes not elevated. INR 0.9. Lactic 0.9 proBNP is elevated 25 100 EKG showing sinus rhythm at [address]-T changes, no left bundle branch block 02/17/2024 --Patient is seen and evaluated in room at bedside; remains on Lasix drip, remains in negative fluid balance - patient underwent cardiac catheterization which revealed severe triple-vessel coronary artery disease and now she is being evaluated for possible myocardial revascularization. Patient remains on oxygen at 2 L/min and her O2 sats is 97%, her PFT showed severe obstructive lung disease, however not severe enough to not consider myocardial revascularization if the patient is cleared by other consultants including nephrology and cardiology. Patient has been a smoker over the years, she had at least a [id number] smoking history. Remind you patient had a PFT with chest x-ray still showing evidence of pulmonary edema which will definitely compromise her PFT will likely reflect more restriction than obstructive lung disease. WBC count today is 4.9 hemoglobin 7.7 electrolytes are normal BUN is 85 creatinine 3.59 02/18/2024 Patient is seen and evaluated in room at bedside; sitting up in bed; ports stabl e breathing - patient underwent AFRICA which revealed aortic valve tricuspid and functioning normally. Mitral valve structurally normal with mild central secondary mitral regurgitation. Pulmonary vein flow has systolic dominance. Tricuspid valve appears to be normal with mild tricuspid regurgitation. Intra-atrial septum is intact with no evidence of PFO. Left atrial appendage free of clot. LV EF 35% with global hypokinesis. -- Patient is followed by cardiothoracic surgery and also nephrology. Nephrology not recommending any indication or need for hemodialysis. Patient remains on Lasix drip per nephrology. Patient has a negative fluid balance of 1322. Repeat blood work reveals hemoglobin is 7.9. BUN 82 creatinine 3.39. Mild elevation in liver function test. -Plan for surgery once clinically optimized 02/19/2024 Patient looks more awake than admission, sitting up in bed. Care Home officers at bedside Mentation at baseline. She talks freely. Denies chest pain or dyspnea at rest On presentation patient was found acute CHF and non-STEMI, workup showing triple-vessel coronary artery disease and patient will require bypass procedure with cardiothoracic surgery team on the case once medically optimized. Patient currently with fluid overload on Lasix drip, on admission it was 5 mg/h, currently increased to 10 mg/h. She is making around 1 L of urine output by yesterday. Saldaña catheter in place. She is also on aspirin 81 mg Hemoglobin 8.5, creatinine 3.3 compared to 2.7 on admission with baseline 0.9- 1.2. Liver enzymes mildly elevated since admission. 02/20/2024 Patient came from assisted for an NSTEMI. Workup showing severe triple-vessel coronary artery disease currently being evaluated by cardiothoracic surgery team for possible cardiac bypass procedure. However she needs optimization and she is currently kept on IV Lasix 10 mg, creatinine went up 3.3 today. Well Shooter recommended to continue with Lasix drip still tomorrow Patient diabetic, she is on Levemir 8 units twice daily, she is developing episodes of hypoglycemia we will going to lower the dose to 6 units twice daily She is also on aspirin 325 mg 02/21/2024 Patient continues to improve today, she is more energetic, less dyspneic Lasix drip switched to IV Lasix 60 mg twice daily Cardiothoracic surgery team with plan for valve replacement surgery on this coming Sunday 02/25 Sugars better controlled with no hyperglycemia on Levemir 6 units twice daily 02/22/2024 Patient breathing is stable, denies chest pain No new complaint Will go check breathing tomorrow Plan for cardiac surgery on Monday02/23/2024 Patient awake alert She feels more weak today Creatinine is up Plan for cardiac surgery early next week 02/24/2024 Patient feels weak No chest pain or dyspnea Patient anticipates surgery on Monday chief strategy officer at bedside 02/25/2024 Patient awake alert looks comfortable Generally weak Creatinine stable around 3.2 Plan for bypass cardiac surgery tomorrow, patient is agreeable to the current plan 02/26/2024 Patient is seen in follow-up today for coronary artery bypass with cardiothorac ic surgery. Patient currently n.p.o. and preop. Will await surgical report. 02/27/2024 Patient is seen in follow-up this morning currently in the ICU with multiple medical consultations following. Patient is status post bypass yesterday currently maintained on 4 L via nasal cannula. Patient is reporting some shortness of breath although biggest concern is severe nausea. Patient is maintained on Reglan and Zofran as needed. Will make Reglan scheduled. Patient did have mediastinal chest tube removed and was taken off balloon pump most recently this morning. Patient continues on insulin drip and will continue monitoring sugars closely continue with current regimen and will transition off insulin drip once patient nausea is improved and tolerating diet. Patient is afebrile at this time. Review of systems: Constitutional: No reports of fatigue, fever, or chills Cardiovascular: reports of chest wall pain Respiratory: reports of shortness of breath or cough GI: reports of severe nausea, no vomiting, or diarrhea : No reports of dysuria or retention Neurovascular: reports of generalized weakness All medications have been reviewed Physical exam: GENERAL: The patient is alert and oriented x3, pale, extremely nauseated. Well developed, thin built. Generally weak and extremely nauseated HEENT: Pupils are round and equally reacting to light. EOMI. No scleral icterus. No conjunctival pallor. Normocephalic, atraumatic. No pharyngeal erythema. No thyromegaly. CARDIOVASCULAR: S1 and S2 muffled, heart hugger noted PULMONARY: Diminished breath sounds bilaterally otherwise chest is clear to auscultation, no wheezing , faint crackles. Tachypnea ABDOMEN: Soft, nontender, nondistended, normoactive bowel sounds. No palpable organomegaly. Saldaña catheter in place MUSCULOSKELETAL: No joint swelling or deformity. EXTREMITIES: No cyanosis, clubbing, 1+ bilateral pitting leg edema. NEUROLOGICAL: Gross neurological examination did not reveal any focal deficits. Diffusely weak SKIN: No rashes. no petechiae. Pale Assessment: Acute systolic CHF exacerbation, ejection fraction: 20 to 25% non-STEMI, ekg New left bundle branch block, secondary to triple-vessel coronary artery disease status post CABG, postop day 1. Mild hypoxic respiratory failure, improved Acute kidney injury on chronic kidney disease, nonoliguric Acute on chronic anemia of chronic disease Acute urinary tract infection, urine culture showing skin or genital kwesi. Resolved Diabetes mellitus, type II, uncontrolled with hypoglycemia Continued ongoing nicotine dependence Chronic ulcers of the right big toe Chronic kidney disease stage II with acute kidney injury GI prophylaxis DVT prophylaxis Full code Plan: Cardiothoracic surgery team on the case and patient is status post bypass proc edure and off balloon pump just this morning. Mediastinal chest tube removed recommend follow-up chest x-ray Patient is maintained on insulin drip and will continue for now per protocol and will transition to sliding scale and long-acting as needed once patient is tolerating more diet. Continue with Accu-Cheks before meals and at bedtime patient is extremely nauseated and has as needed medications. Will make Reglan scheduled and continue with as needed Zofran Nephrology following and kidney functions are stable and being closely monitored We will continue to follow with cardiothoracic during hospitalization. Due to multiple complex medical issues, overall prognosis is guarded The impression and plan of care has been dictated by Mandy Granda, Nurse Practitioner as directed. Dr. Jordyn MD I have performed a history and examination and MDM of this patient, discussed the same with the dictator, and agree with the dictator's assessment and plan as written ,documented as a scribe. Based on total visit time, I have performed more than 50% of the visit. Objective - Vital Signs Vital signs: Vital Signs Temp 99.3 F 02/27/24 08:30 Pulse 93 02/27/24 09:00 Resp 20 02/27/24 09:00 BP 129/68 02/26/24 05:58 Pulse Ox 91 L 02/27/24 09:00 FiO2 40 02/26/24 16:39 Intake & Output 02/26/24 02/27/24 02/27/24 18:59 06:59 18:59 Intake Total 4200.875 1523.227 174.732 Output Total 1300 1075 150 Balance -186.769 -20.773 24.732 Weight 76.8 kg 76.8 kg Intake: IV 367 1037 148 .9NS Cardiac Output 70 270 40 .9NS Pressure Bag 54 117 18 Lactated Ringers 1,000 ml 240 650 90 @ 20 mls/hr IV .Q24H L[facility]ND[facility] Rx#:[id number] Intake, IV Titration 436.231 17.227 26.732 Amount Insulin Regular 100 unit 12.928 17.227 0.657 In Sodium Chloride 0.9% 100 ml @ Per Protocol IV .Q0M [facility]ND[facility] Rx#:[id number] Lactated Ringers 1,000 ml 50 @ 20 mls/hr IV .Q24H [facility] Rx#:[id number] Magnesium Sulfate-D5w Pmx 200 1 gm In Dextrose/Water 1 100ml.bag @ 100 mls/hr IVPB Q1H [facility]ND[facility] Rx#: [id number] Nitroglycerin-D5w Pmx 50 26.075 mg In Dextrose/Water 1 250ml.bag @ 5 MCG/MIN 1.5 mls/hr IV .Q24H [facility]ND[facility] Rx#: [id number] ceFAZolin 2 gm In Sodium 150 Chloride 0.9% 50 ml @ 100 mls/hr IVPB Q8HR [facility] Rx# :[id number] propofoL 1,000 mg In 23.303 Empty Bag 1 bag @ Titrate IV .Q0M LYNDSAY Rx#: [id number] Blood Product 310 Rc As-1 Unit 310 [id number] Output: Chest Tube Drainage 375 540 90 Left Pleural Chest Tube 175 270 50 Mediastinal Chest Tube 120 140 10 Right Pleural Chest Tube 80 130 30 Drainage 50 0 Left Calf 50 0 Urine 525 375 60 Emesis 110 Estimated Blood Loss 400 Other: Voiding Method Indwelling Catheter Indwelling Catheter ABP, PAP, CO, CI - Last Documented Arterial Blood Pressure 141/56 Pulmonary Artery Pressure 42/25 Cardiac Output 5.1 Cardiac Index 2.7 - Labs CBC & Chem 7: 02/27/24 03:55 02/27/24 03:55 Labs: Abnormal Lab Results - Last 24 Hours (Table) 02/25/24 02/26/24 02/26/24 Range/Units 06:00 09:24 10:13 RBC (3.80-5.40) m/uL Hgb (11.4-16.0) gm/dL Hct (34.0-46.0) % MCHC (31.0-37.0) g/dL Neutrophils # (1.3-7.7) k/uL Lymphocytes # (1.0-4.8) k/uL ABG pH (7.35-7.45) ABG pCO2 51 H 49 H (35-45) mmHg ABG pO2 137 H 125 H (83-108) mmHg ABG HCO3 30 H 29 H (21-25) mmol/L ABG O2 Saturation 99.1 H 98.9 H (94-97) % ABG Hematocrit 23 L 24 L (34.0-46.0) % ABG Potassium 3.3 L 3.2 L (3.4-4.5) mmol/L ABG Ionized Calcium (4.5-5.3) mg/dL ABG Glucose 101 H 101 H (75-99) mg/dL Hemoglobin 7.3 L 7.7 L (11.4-16.0) gm/dL Sodium (137-145) mmol/L Chloride (98-107) mmol/L Carbon Dioxide (22-30) mmol/L BUN (7-17) mg/dL Creatinine (0.52-1.04) mg/dL Glucose (74-99) mg/dL POC Glucose (mg/dL) (70-110) mg/dL Calcium (8.4-10.2) mg/dL Magnesium (1.6-2.3) mg/dL AST (14-36) U/L Alkaline Phosphatase (38-126) U/L Total Protein (6.3-8.2) g/dL Albumin (3.5-5.0) g/dL Arterial Blood Potassium 3.3 L 3.2 L (3.4-4.5) mmol/L Arterial Blood Glucose 101 H 101 H (75-99) mg/dL Crossmatch See Detail 02/26/24 02/26/24 02/26/24 Range/Units 10:49 11:28 12:01 RBC (3.80-5.40) m/uL Hgb (11.4-16.0) gm/dL Hct (34.0-46.0) % MCHC (31.0-37.0) g/dL Neutrophils # (1.3-7.7) k/uL Lymphocytes # (1.0-4.8) k/uL ABG pH 7.49 H 7.51 H (7.35-7.45) ABG pCO2 34 L (35-45) mmHg ABG pO2 186 H 213 H 189 H (83-108) mmHg ABG HCO3 29 H 28 H 27 H (21-25) mmol/L ABG O2 Saturation >99.4 H >99.4 H 99.3 H (94-97) % ABG Hematocrit 26 L 25 L 24 L (34.0-46.0) % ABG Potassium (3.4-4.5) mmol/L ABG Ionized Calcium 4.4 L (4.5-5.3) mg/dL ABG Glucose 71 L (75-99) mg/dL Hemoglobin 8.3 L 8.0 L 7.9 L (11.4-16.0) gm/dL Sodium (137-145) mmol/L Chloride (98-107) mmol/L Carbon Dioxide (22-30) mmol/L BUN (7-17) mg/dL Creatinine (0.52-1.04) mg/dL Glucose (74-99) mg/dL POC Glucose (mg/dL) (70-110) mg/dL Calcium (8.4-10.2) mg/dL Magnesium (1.6-2.3) mg/dL AST (14-36) U/L Alkaline Phosphatase (38-126) U/L Total Protein (6.3-8.2) g/dL Albumin (3.5-5.0) g/dL Arterial Blood Potassium (3.4-4.5) mmol/L Arterial Blood Glucose 71 L (75-99) mg/dL Crossmatch 02/26/24 02/26/24 02/26/24 Range/Units 12:45 13:42 13:42 RBC 2.97 L (3.80-5.40) m/uL Hgb 9.0 L (11.4-16.0) gm/dL Hct 28.3 L (34.0-46.0) % MCHC (31.0-37.0) g/dL Neutrophils # (1.3-7.7) k/uL Lymphocytes # 0.7 L (1.0-4.8) k/uL ABG pH (7.35-7.45) ABG pCO2 (35-45) mmHg ABG pO2 239 H (83-108) mmHg ABG HCO3 27 H (21-25) mmol/L ABG O2 Saturation 99.4 H (94-97) % ABG Hematocrit 24 L (34.0-46.0) % ABG Potassium 3.3 L (3.4-4.5) mmol/L ABG Ionized Calcium (4.5-5.3) mg/dL ABG Glucose (75-99) mg/dL Hemoglobin 8.0 L (11.4-16.0) gm/dL Sodium 136 L (137-145) mmol/L Chloride 109 H (98-107) mmol/L Carbon Dioxide (22-30) mmol/L BUN 57 H (7-17) mg/dL Creatinine 2.65 H (0.52-1.04) mg/dL Glucose (74-99) mg/dL POC Glucose (mg/dL) (70-110) mg/dL Calcium 7.6 L (8.4-10.2) mg/dL Magnesium 1.5 L (1.6-2.3) mg/dL AST 41 H (14-36) U/L Alkaline Phosphatase 128 H (38-126) U/L Total Protein 4.6 L (6.3-8.2) g/dL Albumin 2.1 L (3.5-5.0) g/dL Arterial Blood Potassium 3.3 L (3.4-4.5) mmol/L Arterial Blood Glucose (75-99) mg/dL Crossmatch 02/26/24 02/26/24 02/26/24 Range/Units 14:40 14:44 14:51 RBC 3.03 L (3.80-5.40) m/uL Hgb 9.0 L (11.4-16.0) gm/dL Hct 28.7 L (34.0-46.0) % MCHC (31.0-37.0) g/dL Neutrophils # 8.0 H (1.3-7.7) k/uL Lymphocytes # 0.6 L (1.0-4.8) k/uL ABG pH 7.34 L (7.35-7.45) ABG pCO2 46 H (35-45) mmHg ABG pO2 265 H (83-108) mmHg ABG HCO3 (21-25) mmol/L ABG O2 Saturation 100.5 H (94-97) % ABG Hematocrit (34.0-46.0) % ABG Potassium (3.4-4.5) mmol/L ABG Ionized Calcium (4.5-5.3) mg/dL ABG Glucose (75-99) mg/dL Hemoglobin (11.4-16.0) gm/dL Sodium (137-145) mmol/L Chloride (98-107) mmol/L Carbon Dioxide (22-30) mmol/L BUN (7-17) mg/dL Creatinine (0.52-1.04) mg/dL Glucose (74-99) mg/dL POC Glucose (mg/dL) 140 H (70-110) mg/dL Calcium (8.4-10.2) mg/dL Magnesium (1.6-2.3) mg/dL AST (14-36) U/L Alkaline Phosphatase (38-126) U/L Total Protein (6.3-8.2) g/dL Albumin (3.5-5.0) g/dL Arterial Blood Potassium (3.4-4.5) mmol/L Arterial Blood Glucose (75-99) mg/dL Crossmatch 02/26/24 02/26/24 02/26/24 Range/Units 15:09 16:00 16:51 RBC (3.80-5.40) m/uL Hgb (11.4-16.0) gm/dL Hct (34.0-46.0) % MCHC (31.0-37.0) g/dL Neutrophils # (1.3-7.7) k/uL Lymphocytes # (1.0-4.8) k/uL ABG pH (7.35-7.45) ABG pCO2 (35-45) mmHg ABG pO2 (83-108) mmHg ABG HCO3 (21-25) mmol/L ABG O2 Saturation (94-97) % ABG Hematocrit (34.0-46.0) % ABG Potassium (3.4-4.5) mmol/L ABG Ionized Calcium (4.5-5.3) mg/dL ABG Glucose (75-99) mg/dL Hemoglobin (11.4-16.0) gm/dL Sodium (137-145) mmol/L Chloride (98-107) mmol/L Carbon Dioxide (22-30) mmol/L BUN (7-17) mg/dL Creatinine (0.52-1.04) mg/dL Glucose (74-99) mg/dL POC Glucose (mg/dL) 167 H 161 H 160 H (70-110) mg/dL Calcium (8.4-10.2) mg/dL Magnesium (1.6-2.3) mg/dL AST (14-36) U/L Alkaline Phosphatase (38-126) U/L Total Protein (6.3-8.2) g/dL Albumin (3.5-5.0) g/dL Arterial Blood Potassium (3.4-4.5) mmol/L Arterial Blood Glucose (75-99) mg/dL Crossmatch 02/26/24 02/26/24 02/26/24 Range/Units 17:30 18:07 18:55 RBC (3.80-5.40) m/uL Hgb (11.4-16.0) gm/dL Hct (34.0-46.0) % MCHC (31.0-37.0) g/dL Neutrophils # (1.3-7.7) k/uL Lymphocytes # (1.0-4.8) k/uL ABG pH (7.35-7.45) ABG pCO2 (35-45) mmHg ABG pO2 80 L (83-108) mmHg ABG HCO3 (21-25) mmol/L ABG O2 Saturation (94-97) % ABG Hematocrit (34.0-46.0) % ABG Potassium (3.4-4.5) mmol/L ABG Ionized Calcium (4.5-5.3) mg/dL ABG Glucose (75-99) mg/dL Hemoglobin (11.4-16.0) gm/dL Sodium (137-145) mmol/L Chloride (98-107) mmol/L Carbon Dioxide (22-30) mmol/L BUN (7-17) mg/dL Creatinine (0.52-1.04) mg/dL Glucose (74-99) mg/dL POC Glucose (mg/dL) 135 H 119 H (70-110) mg/dL Calcium (8.4-10.2) mg/dL Magnesium (1.6-2.3) mg/dL AST (14-36) U/L Alkaline Phosphatase (38-126) U/L Total Protein (6.3-8.2) g/dL Albumin (3.5-5.0) g/dL Arterial Blood Potassium (3.4-4.5) mmol/L Arterial Blood Glucose (75-99) mg/dL Crossmatch 02/26/24 02/26/24 02/26/24 Range/Units 19:52 20:10 20:58 RBC 3.00 L (3.80-5.40) m/uL Hgb 9.3 L (11.4-16.0) gm/dL Hct 28.3 L (34.0-46.0) % MCHC (31.0-37.0) g/dL Neutrophils # 8.1 H (1.3-7.7) k/uL Lymphocytes # 0.5 L (1.0-4.8) k/uL ABG pH (7.35-7.45) ABG pCO2 (35-45) mmHg ABG pO2 (83-108) mmHg ABG HCO3 (21-25) mmol/L ABG O2 Saturation (94-97) % ABG Hematocrit (34.0-46.0) % ABG Potassium (3.4-4.5) mmol/L ABG Ionized Calcium (4.5-5.3) mg/dL ABG Glucose (75-99) mg/dL Hemoglobin (11.4-16.0) gm/dL Sodium 134 L (137-145) mmol/L Chloride (98-107) mmol/L Carbon Dioxide (22-30) mmol/L BUN 57 H (7-17) mg/dL Creatinine 2.68 H (0.52-1.04) mg/dL Glucose (74-99) mg/dL POC Glucose (mg/dL) 146 H (70-110) mg/dL Calcium 8.2 L (8.4-10.2) mg/dL Magnesium (1.6-2.3) mg/dL AST (14-36) U/L Alkaline Phosphatase (38-126) U/L Total Protein (6.3-8.2) g/dL Albumin (3.5-5.0) g/dL Arterial Blood Potassium (3.4-4.5) mmol/L Arterial Blood Glucose (75-99) mg/dL Crossmatch 02/26/24 02/26/24 02/26/24 Range/Units 21:56 22:51 23:51 RBC (3.80-5.40) m/uL Hgb (11.4-16.0) gm/dL Hct (34.0-46.0) % MCHC (31.0-37.0) g/dL Neutrophils # (1.3-7.7) k/uL Lymphocytes # (1.0-4.8) k/uL ABG pH (7.35-7.45) ABG pCO2 (35-45) mmHg ABG pO2 (83-108) mmHg ABG HCO3 (21-25) mmol/L ABG O2 Saturation (94-97) % ABG Hematocrit (34.0-46.0) % ABG Potassium (3.4-4.5) mmol/L ABG Ionized Calcium (4.5-5.3) mg/dL ABG Glucose (75-99) mg/dL Hemoglobin (11.4-16.0) gm/dL Sodium (137-145) mmol/L Chloride (98-107) mmol/L Carbon Dioxide (22-30) mmol/L BUN (7-17) mg/dL Creatinine (0.52-1.04) mg/dL Glucose (74-99) mg/dL POC Glucose (mg/dL) 135 H 114 H 137 H (70-110) mg/dL Calcium (8.4-10.2) mg/dL Magnesium (1.6-2.3) mg/dL AST (14-36) U/L Alkaline Phosphatase (38-126) U/L Total Protein (6.3-8.2) g/dL Albumin (3.5-5.0) g/dL Arterial Blood Potassium (3.4-4.5) mmol/L Arterial Blood Glucose (75-99) mg/dL Crossmatch 02/27/24 02/27/24 02/27/24 Range/Units 00:59 01:57 02:59 RBC (3.80-5.40) m/uL Hgb (11.4-16.0) gm/dL Hct (34.0-46.0) % MCHC (31.0-37.0) g/dL Neutrophils # (1.3-7.7) k/uL Lymphocytes # (1.0-4.8) k/uL ABG pH (7.35-7.45) ABG pCO2 (35-45) mmHg ABG pO2 (83-108) mmHg ABG HCO3 (21-25) mmol/L ABG O2 Saturation (94-97) % ABG Hematocrit (34.0-46.0) % ABG Potassium (3.4-4.5) mmol/L ABG Ionized Calcium (4.5-5.3) mg/dL ABG Glucose (75-99) mg/dL Hemoglobin (11.4-16.0) gm/dL Sodium (137-145) mmol/L Chloride (98-107) mmol/L Carbon Dioxide (22-30) mmol/L BUN (7-17) mg/dL Creatinine (0.52-1.04) mg/dL Glucose (74-99) mg/dL POC Glucose (mg/dL) 126 H 112 H 133 H (70-110) mg/dL Calcium (8.4-10.2) mg/dL Magnesium (1.6-2.3) mg/dL AST (14-36) U/L Alkaline Phosphatase (38-126) U/L Total Protein (6.3-8.2) g/dL Albumin (3.5-5.0) g/dL Arterial Blood Potassium (3.4-4.5) mmol/L Arterial Blood Glucose (75-99) mg/dL Crossmatch 02/27/24 02/27/24 02/27/24 Range/Units 03:55 03:55 03:56 RBC 3.22 L (3.80-5.40) m/uL Hgb 9.4 L (11.4-16.0) gm/dL Hct 30.8 L (34.0-46.0) % MCHC 30.7 L (31.0-37.0) g/dL Neutrophils # (1.3-7.7) k/uL Lymphocytes # 0.6 L (1.0-4.8) k/uL ABG pH (7.35-7.45) ABG pCO2 (35-45) mmHg ABG pO2 (83-108) mmHg ABG HCO3 (21-25) mmol/L ABG O2 Saturation (94-97) % ABG Hematocrit (34.0-46.0) % ABG Potassium (3.4-4.5) mmol/L ABG Ionized Calcium (4.5-5.3) mg/dL ABG Glucose (75-99) mg/dL Hemoglobin (11.4-16.0) gm/dL Sodium 134 L (137-145) mmol/L Chloride (98-107) mmol/L Carbon Dioxide 21 L (22-30) mmol/L BUN 57 H (7-17) mg/dL Creatinine 2.61 H (0.52-1.04) mg/dL Glucose 125 H (74-99) mg/dL POC Glucose (mg/dL) 142 H (70-110) mg/dL Calcium 8.3 L (8.4-10.2) mg/dL Magnesium (1.6-2.3) mg/dL AST 51 H (14-36) U/L Alkaline Phosphatase 135 H (38-126) U/L Total Protein 4.9 L (6.3-8.2) g/dL Albumin 2.2 L (3.5-5.0) g/dL Arterial Blood Potassium (3.4-4.5) mmol/L Arterial Blood Glucose (75-99) mg/dL Crossmatch 02/27/24 02/27/24 02/27/24 Range/Units 05:04 06:51 08:08 RBC (3.80-5.40) m/uL Hgb (11.4-16.0) gm/dL Hct (34.0-46.0) % MCHC (31.0-37.0) g/dL Neutrophils # (1.3-7.7) k/uL Lymphocytes # (1.0-4.8) k/uL ABG pH (7.35-7.45) ABG pCO2 (35-45) mmHg ABG pO2 (83-108) mmHg ABG HCO3 (21-25) mmol/L ABG O2 Saturation (94-97) % ABG Hematocrit (34.0-46.0) % ABG Potassium (3.4-4.5) mmol/L ABG Ionized Calcium (4.5-5.3) mg/dL ABG Glucose (75-99) mg/dL Hemoglobin (11.4-16.0) gm/dL Sodium (137-145) mmol/L Chloride (98-107) mmol/L Carbon Dioxide (22-30) mmol/L BUN (7-17) mg/dL Creatinine (0.52-1.04) mg/dL Glucose (74-99) mg/dL POC Glucose (mg/dL) 122 H 120 H 140 H (70-110) mg/dL Calcium (8.4-10.2) mg/dL Magnesium (1.6-2.3) mg/dL AST (14-36) U/L Alkaline Phosphatase (38-126) U/L Total Protein (6.3-8.2) g/dL Albumin (3.5-5.0) g/dL Arterial Blood Potassium (3.4-4.5) mmol/L Arterial Blood Glucose (75-99) mg/dL Crossmatch 02/27/24 Range/Units 09:03 RBC (3.80-5.40) m/uL Hgb (11.4-16.0) gm/dL Hct (34.0-46.0) % MCHC (31.0-37.0) g/dL Neutrophils # (1.3-7.7) k/uL Lymphocytes # (1.0-4.8) k/uL ABG pH (7.35-7.45) ABG pCO2 (35-45) mmHg ABG pO2 (83-108) mmHg ABG HCO3 (21-25) mmol/L ABG O2 Saturation (94-97) % ABG Hematocrit (34.0-46.0) % ABG Potassium (3.4-4.5) mmol/L ABG Ionized Calcium (4.5-5.3) mg/dL ABG Glucose (75-99) mg/dL Hemoglobin (11.4-16.0) gm/dL Sodium (137-145) mmol/L Chloride (98-107) mmol/L Carbon Dioxide (22-30) mmol/L BUN (7-17) mg/dL Creatinine (0.52-1.04) mg/dL Glucose (74-99) mg/dL POC Glucose (mg/dL) 141 H (70-110) mg/dL Calcium (8.4-10.2) mg/dL Magnesium (1.6-2.3) mg/dL AST (14-36) U/L Alkaline Phosphatase (38-126) U/L Total Protein (6.3-8.2) g/dL Albumin (3.5-5.0) g/dL Arterial Blood Potassium (3.4-4.5) mmol/L Arterial Blood Glucose (75-99) mg/dL Crossmatch
[2024-02-27 21:08] LABS: Basophils # (A) 0.1 k/uL (0-0.2); Basophils % (A) 1 %; Eosinophils # (A) 0.1 k/uL (0-0.7); Eosinophils % (A) 1 %; HGB 10.8 gm/dL (11.4-16.0); Hypochromasia Moderate; Lymphocytes # (A) 0.9 k/uL (1.0-4.8); Lymphocytes % (A) 7 %; MCH 29.6 pg (25.0-35.0); MCHC 30.9 g/dL (31.0-37.0); MCV 95.9 fL (80.0-100.0); Mean Platelet Volume 8.5; Monocytes % (A) 8 %; Neutrophils # (A) 10.3 k/uL (1.3-7.7); Neutrophils % (A) 81 %; Platelet Count 348 k/uL (150-450); Poikilocytosis Slight; RBC 3.65 m/uL (3.80-5.40); RDW 14.8 % (11.5-15.5); WBC 12.7 k/uL (3.8-10.6)
[2024-02-27 21:18] LABS: Glucose,Whole Blood 124 mg/dL (70-110)
[2024-02-27 22:18] LABS: Glucose,Whole Blood 110 mg/dL (70-110)
[2024-02-27 23:03] LABS: Glucose,Whole Blood 134 mg/dL (70-110)
[2024-02-28 00:02] LABS: Glucose,Whole Blood 158 mg/dL (70-110)
[2024-02-28 00:59] LABS: Glucose,Whole Blood 147 mg/dL (70-110)
[2024-02-28 02:05] LABS: Glucose,Whole Blood 131 mg/dL (70-110)
[2024-02-28 03:08] LABS: Glucose,Whole Blood 143 mg/dL (70-110)
[2024-02-28 04:07] LABS: Glucose,Whole Blood 142 mg/dL (70-110)
[2024-02-28 05:03] LABS: Glucose,Whole Blood 133 mg/dL (70-110)
[2024-02-28 06:11] LABS: Glucose,Whole Blood 125 mg/dL (70-110)
[2024-02-28] MEDS: PANTOPRAZOLE 40 MG TABLET PO SCH (06:14)
[2024-02-28 06:50] LABS: Glucose,Whole Blood 118 mg/dL (70-110)
[2024-02-28 06:58] LABS: ALT 12 U/L (4-34); AST 48 U/L (14-36); African American GFR (CKD) 18 (>60 ml/min/1.73 sqM); Albumin 2.8 g/dL (3.5-5.0); Alkaline Phosphatase 180 U/L (38-126); Anion Gap 8 mmol/L; Blood Urea Nitrogen 62 mg/dL (7-17); Calcium 8.8 mg/dL (8.4-10.2); Carbon Dioxide 20 mmol/L (22-30); Chloride 107 mmol/L (98-107); Glucose 118 mg/dL (74-99); Non-African American GFR(CKD) 16 (>60 ml/min/1.73 sqM); Potassium 4.8 mmol/L (3.5-5.1); Sodium 135 mmol/L (137-145); Total Bilirubin 0.3 mg/dL (0.2-1.3); Total Protein 5.7 g/dL (6.3-8.2)
[2024-02-28 07:42] LABS: Basophils # (A) 0.1 k/uL (0-0.2); Basophils % (A) 1 %; Eosinophils # (A) 0.1 k/uL (0-0.7); Eosinophils % (A) 0 %; HCT 32.2 % (34.0-46.0); HGB 10.2 gm/dL (11.4-16.0); Hypochromasia Moderate; Lymphocytes # (A) 1.1 k/uL (1.0-4.8); Lymphocytes % (A) 9 %; MCH 30.4 pg (25.0-35.0); MCHC 31.6 g/dL (31.0-37.0); MCV 96.1 fL (80.0-100.0); Mean Platelet Volume 10.4; Monocytes # (A) 1.3 k/uL (0-1.0); Monocytes % (A) 10 %; Neutrophils # (A) 9.7 k/uL (1.3-7.7); Neutrophils % (A) 78 %; Platelet Count 302 k/uL (150-450); Poikilocytosis Slight; RBC 3.35 m/uL (3.80-5.40); RDW 15.1 % (11.5-15.5); WBC 12.4 k/uL (3.8-10.6)
--- NOTE | 2024-02-28 07:50 | P.PN ---
Subjective Progress Note Date: 02/28/24 Principal diagnosis: Triple-vessel coronary artery disease, non-STEMI this admission, acute heart failure with reduced ejection fraction, new onset ischemic cardiomyopathy, moderate to severe mitral regurgitation, acute on chronic kidney disease, acute anemia. History of hypertension, hyperlipidemia, hypothyroid, diabetes mellitus, CVA, hepatitis as a child, CKD stage IV, previous tobacco dependence with recent cessation, severe COPD, previous methamphetamine use with recent cessation, family history of coronary artery disease POD #2 Off-pump CABG x 4 with sequential left internal mammary artery to left anterior descending coronary artery and diagonal coronary artery, reverse saphenous vein graft to the posterior descending coronary artery and second obtuse marginal coronary artery, closure of the left atrial appendage with 35mm AtriCure clip, placement of percutaneous right femoral intra-aortic balloon pump, transesophageal echocardiogram performed by anesthesia. Postoperative acute blood loss anemia, expected secondary to hemodilution and preoperative anemia. The patient was seen and examined sitting up in recliner in the intensive care unit in no acute distress with guard present. She remains in sinus rhythm, hemodynamically stable, currently on 2 L nasal cannula with oxygen saturation in the mid to high 90s. Apparently she had a lot of nausea yesterday which has improved today and she is tolerating clear liquids. Right internal jugular [place], left and right pleural chest tubes all remain. Chest x-ray reviewed, labs pending. Remains on IV dopamine for renal perfusion. No other new concerns. Objective - Vital Signs Vital signs: Vital Signs Temp 98.3 F 02/28/24 04:00 Pulse 82 02/28/24 07:00 Resp 12 02/28/24 07:00 BP 110/61 02/28/24 07:00 Pulse Ox 96 02/28/24 07:00 FiO2 40 02/26/24 16:39 Intake & Output 02/27/24 02/28/24 02/28/24 18:59 06:59 18:59 Intake Total 917.870 588.204 Output Total 585 560 Balance 332.870 28.204 Weight 76.8 kg 75.8 kg Intake: IV 879 577 .9NS Cardiac Output 140 100 .9NS Pressure Bag 99 87 Albumin Human 5% 250 ml 250 In Empty Bag 1 bag @ 250 mls/hr IVPB Q1HR PRN Rx#: [id number] Lactated Ringers 1,000 ml 390 390 @ 20 mls/hr IV .Q24H LYNDSAY Rx#:[id number] Intake, IV Titration 38.870 11.204 Amount Insulin Regular 100 unit 12.795 11.204 In Sodium Chloride 0.9% 100 ml @ Per Protocol IV .Q0M LYNDSAY Rx#:[id number] Nitroglycerin-D5w Pmx 50 26.075 mg In Dextrose/Water 1 250ml.bag @ 5 MCG/MIN 1.5 mls/hr IV .Q24H LYNDSAY Rx#: [id number] Output: Chest Tube Drainage 340 300 Left Pleural Chest Tube 190 200 Mediastinal Chest Tube 10 Right Pleural Chest Tube 140 100 Drainage 0 Left Calf 0 Urine 245 260 Other: Voiding Method Indwelling Catheter Indwelling Catheter ABP, PAP, CO, CI - Last Documented Arterial Blood Pressure 139/47 Pulmonary Artery Pressure 32/16 Cardiac Output 4.7 Cardiac Index 2.5 - Exam CONSTITUTIONAL: Appears comfortable, cooperative, no acute distress RESPIRATORY: Lungs sounds diminished bilaterally. Respirations even, nonlabored. Currently on 2 L nasal cannula with oxygen saturation 97%. Able to achieve 750 mL on incentive spirometry. Weak cough. CARDIOVASCULAR: S1, S2 present. Regular rate and rhythm, sinus rhythm on telemetry. Sternum stable. Palpable peripheral pulses bilaterally. Trace generalized edema present. No calf pain or tenderness noted. Heart hugger in place with patient demonstrating appropriate use. Antiembolism stockings, SCDs present. GASTROINTESTINAL: Abdomen soft, nontender, nondistended. Hypoactive bowel sounds present 4 quadrants. Tolerating minimal clear liquids. Positive belching, denies flatus GENITOURINARY: [place] present draining clear, yellow urine. Output overnight 10-20 mL per hour, 490 mL in the last 24 hours INTEGUMENTARY: Skin is warm and dry with evidence of good perfusion. Anterior chest incision well approximated and covered with dry intact dressing. Left lower extremity EVH site well approximated without redness or drainage. NEUROLOGIC: Cranial nerves II through XII intact MUSKULOSKELETAL: Able to move all extremities, strength equal bilaterally PSYCHIATRIC: Alert and oriented to person place and time, appropriate affect, intact judgment and insight INVASIVE LINES AND TUBES: Left/right pleural chest tubes present and connected to wall suction, no air leaks present. Left pleural chest tube with 180 mL serosanguineous drainage overnight, 450 mL in the last 24 hours. Right pleural chest tube with 100 mL serosanguineous drainage overnight, 280 mL last 24 hours. Right internal jugular [place] present. Last CO/CI 4.7/2.5, PA , CVP 4. - Allied health notes Allied health notes reviewed: nursing - Labs CBC & Chem 7: 02/28/24 06:05 02/28/24 06:05 Labs: Abnormal Lab Results - Last 24 Hours (Table) 02/27/24 02/27/24 02/27/24 Range/Units 03:55 08:08 09:03 WBC (3.8-10.6) k/uL RBC (3.80-5.40) m/uL Hgb (11.4-16.0) gm/dL MCHC (31.0-37.0) g/dL Neutrophils # (1.3-7.7) k/uL Lymphocytes # (1.0-4.8) k/uL Sodium (137-145) mmol/L Carbon Dioxide (22-30) mmol/L BUN (7-17) mg/dL Creatinine (0.52-1.04) mg/dL Glucose (74-99) mg/dL POC Glucose (mg/dL) 140 H 141 H (70-110) mg/dL Iron 15 L (50-170) UG/DL TIBC 164 L (228-460) UG/DL % Saturation 9.15 L (12.00-45.00) Transferrin 117.0 L (204.0-354.0) mg/dL AST (14-36) U/L Alkaline Phosphatase (38-126) U/L Total Protein (6.3-8.2) g/dL Albumin (3.5-5.0) g/dL 02/27/24 02/27/24 02/27/24 Range/Units 10:03 11:04 12:05 WBC (3.8-10.6) k/uL RBC (3.80-5.40) m/uL Hgb (11.4-16.0) gm/dL MCHC (31.0-37.0) g/dL Neutrophils # (1.3-7.7) k/uL Lymphocytes # (1.0-4.8) k/uL Sodium (137-145) mmol/L Carbon Dioxide (22-30) mmol/L BUN (7-17) mg/dL Creatinine (0.52-1.04) mg/dL Glucose (74-99) mg/dL POC Glucose (mg/dL) 137 H 127 H 116 H (70-110) mg/dL Iron (50-170) UG/DL TIBC (228-460) UG/DL % Saturation (12.00-45.00) Transferrin (204.0-354.0) mg/dL AST (14-36) U/L Alkaline Phosphatase (38-126) U/L Total Protein (6.3-8.2) g/dL Albumin (3.5-5.0) g/dL 02/27/24 02/27/24 02/27/24 Range/Units 13:11 14:09 15:40 WBC (3.8-10.6) k/uL RBC (3.80-5.40) m/uL Hgb (11.4-16.0) gm/dL MCHC (31.0-37.0) g/dL Neutrophils # (1.3-7.7) k/uL Lymphocytes # (1.0-4.8) k/uL Sodium (137-145) mmol/L Carbon Dioxide (22-30) mmol/L BUN (7-17) mg/dL Creatinine (0.52-1.04) mg/dL Glucose (74-99) mg/dL POC Glucose (mg/dL) 129 H 127 H 128 H (70-110) mg/dL Iron (50-170) UG/DL TIBC (228-460) UG/DL % Saturation (12.00-45.00) Transferrin (204.0-354.0) mg/dL AST (14-36) U/L Alkaline Phosphatase (38-126) U/L Total Protein (6.3-8.2) g/dL Albumin (3.5-5.0) g/dL 02/27/24 02/27/24 02/27/24 Range/Units 17:09 18:26 20:00 WBC (3.8-10.6) k/uL RBC (3.80-5.40) m/uL Hgb (11.4-16.0) gm/dL MCHC (31.0-37.0) g/dL Neutrophils # (1.3-7.7) k/uL Lymphocytes # (1.0-4.8) k/uL Sodium (137-145) mmol/L Carbon Dioxide (22-30) mmol/L BUN (7-17) mg/dL Creatinine (0.52-1.04) mg/dL Glucose (74-99) mg/dL POC Glucose (mg/dL) 153 H 139 H 140 H (70-110) mg/dL Iron (50-170) UG/DL TIBC (228-460) UG/DL % Saturation (12.00-45.00) Transferrin (204.0-354.0) mg/dL AST (14-36) U/L Alkaline Phosphatase (38-126) U/L Total Protein (6.3-8.2) g/dL Albumin (3.5-5.0) g/dL 02/27/24 02/27/24 02/27/24 Range/Units 20:30 21:17 23:01 WBC 12.7 H (3.8-10.6) k/uL RBC 3.65 L (3.80-5.40) m/uL Hgb 10.8 L (11.4-16.0) gm/dL MCHC 30.9 L (31.0-37.0) g/dL Neutrophils # 10.3 H (1.3-7.7) k/uL Lymphocytes # 0.9 L (1.0-4.8) k/uL Sodium (137-145) mmol/L Carbon Dioxide (22-30) mmol/L BUN (7-17) mg/dL Creatinine (0.52-1.04) mg/dL Glucose (74-99) mg/dL POC Glucose (mg/dL) 124 H 134 H (70-110) mg/dL Iron (50-170) UG/DL TIBC (228-460) UG/DL % Saturation (12.00-45.00) Transferrin (204.0-354.0) mg/dL AST (14-36) U/L Alkaline Phosphatase (38-126) U/L Total Protein (6.3-8.2) g/dL Albumin (3.5-5.0) g/dL 02/28/24 02/28/24 02/28/24 Range/Units 00:01 00:58 02:04 WBC (3.8-10.6) k/uL RBC (3.80-5.40) m/uL Hgb (11.4-16.0) gm/dL MCHC (31.0-37.0) g/dL Neutrophils # (1.3-7.7) k/uL Lymphocytes # (1.0-4.8) k/uL Sodium (137-145) mmol/L Carbon Dioxide (22-30) mmol/L BUN (7-17) mg/dL Creatinine (0.52-1.04) mg/dL Glucose (74-99) mg/dL POC Glucose (mg/dL) 158 H 147 H 131 H (70-110) mg/dL Iron (50-170) UG/DL TIBC (228-460) UG/DL % Saturation (12.00-45.00) Transferrin (204.0-354.0) mg/dL AST (14-36) U/L Alkaline Phosphatase (38-126) U/L Total Protein (6.3-8.2) g/dL Albumin (3.5-5.0) g/dL 02/28/24 02/28/24 02/28/24 Range/Units 03:06 04:05 05:01 WBC (3.8-10.6) k/uL RBC (3.80-5.40) m/uL Hgb (11.4-16.0) gm/dL MCHC (31.0-37.0) g/dL Neutrophils # (1.3-7.7) k/uL Lymphocytes # (1.0-4.8) k/uL Sodium (137-145) mmol/L Carbon Dioxide (22-30) mmol/L BUN (7-17) mg/dL Creatinine (0.52-1.04) mg/dL Glucose (74-99) mg/dL POC Glucose (mg/dL) 143 H 142 H 133 H (70-110) mg/dL Iron (50-170) UG/DL TIBC (228-460) UG/DL % Saturation (12.00-45.00) Transferrin (204.0-354.0) mg/dL AST (14-36) U/L Alkaline Phosphatase (38-126) U/L Total Protein (6.3-8.2) g/dL Albumin (3.5-5.0) g/dL 02/28/24 02/28/24 02/28/24 Range/Units 06:05 06:09 06:48 WBC (3.8-10.6) k/uL RBC (3.80-5.40) m/uL Hgb (11.4-16.0) gm/dL MCHC (31.0-37.0) g/dL Neutrophils # (1.3-7.7) k/uL Lymphocytes # (1.0-4.8) k/uL Sodium 135 L (137-145) mmol/L Carbon Dioxide 20 L (22-30) mmol/L BUN 62 H (7-17) mg/dL Creatinine 3.07 H (0.52-1.04) mg/dL Glucose 118 H (74-99) mg/dL POC Glucose (mg/dL) 125 H 118 H (70-110) mg/dL Iron (50-170) UG/DL TIBC (228-460) UG/DL % Saturation (12.00-45.00) Transferrin (204.0-354.0) mg/dL AST 48 H (14-36) U/L Alkaline Phosphatase 180 H (38-126) U/L Total Protein 5.7 L (6.3-8.2) g/dL Albumin 2.8 L (3.5-5.0) g/dL - Imaging and Cardiology Chest x-ray: image reviewed Assessment and Plan Assessment: Triple-vessel coronary artery disease, non-STEMI this admission, status post four-vessel off-pump CABG Acute heart failure with reduced ejection fraction, 20-25%, 35% on [place] New onset ischemic cardiomyopathy Moderate to severe mitral regurgitation on transthoracic echocardiogram, mild mitral regurgitation on [place] Acute on chronic kidney disease secondary to ATN secondary to cardiorenal s yndrome Acute anemia Hypertension Hyperlipidemia, treated, cholesterol 150, LDL 72.8 Hypothyroid, TSH 1.73 Diabetes mellitus, hemoglobin A1c 7.1% CVA Hepatitis as a child CKD Previous tobacco dependence with recent cessation Severe COPD, preoperative FEV1 27% of predicted Previous methamphetamine use with recent cessation Family history of coronary artery disease with sister having multiple stents Plan: Continue to maximize medical therapy with aspirin, statin, Plavix, beta-alex. Will increase beta-alex as tolerated. Continue hydralazine for afterload reduction, switch to oral Continue dopamine Continue oral amiodarone for A-fib prophylaxis, patient has not had any A-fib at this point Wean O2 as tolerated. Encourage incentive spirometry use 10 times every hour while awake. Bronchodilators per pulmonology Increase activity, ambulate as tolerated. PT/OT/cardiac rehab consulted Will monitor daily labs and x-rays. Electrolyte replacement per protocol. Will give 40 mg IVP lasix x 1 GI/DVT prophylaxis Pain control per current medication regimen. Avoid Toradol due to kidney failure Insulin management per internal medicine Continue pleural chest tubes for another 24 hours and monitor output Continue Saldaña catheter for another 24 hours, continue to record strict accurate intake and output Daily weights More recommendations to follow
[2024-02-28 08:03] LABS: Glucose,Whole Blood 129 mg/dL (70-110)
--- NOTE | 2024-02-28 08:23 | XR ---
EXAMINATION TYPE: XR chest 1V portable DATE OF EXAM: 02/28/2024 5:40 AM CLINICAL INDICATION:Female, 58 years old with history of Post Operative Cardiac Surgery; [facility] COMPARISON: Chest radiographs from 02/27/2024 TECHNIQUE: XR chest 1V portable Frontal view of the chest. FINDINGS: Lungs/Pleura: Small bilateral pneumothoraces are suggested. There is no evidence of pleural effusion, focal consolidation, Pulmonary vascularity: Unremarkable. Heart/mediastinum: Cardiomediastinal silhouette is enlarged and stable. Left atrial appendage occlusi on device is present. Musculoskeletal: No acute osseous pathology. Other findings: None Lines/Tubes: There is a [place] catheter with tip projecting over the spine. Bilateral thoracotomy tubes are present without evidence of pneumothorax. Drainage tubes with tips projecting over the mediastinum. IMPRESSION: 1. A bilateral small apical pneumothoraces. 2. Post surgical changes with pulmonary vascular congestion. 3. Endotracheal nasogastric tubes.
--- NOTE | 2024-02-28 09:24 | PN ---
PROGRESS NOTE SUBJECTIVE: This is a 58-year-old lady, who was admitted to ICU with three-vessel coronary artery disease and ischemic cardiomyopathy, underwent bypass surgery. She is postop day #2. Her urine output is poor. Still on dopamine. Intra-aortic balloon pump was removed yesterday. PHYSICAL EXAMINATION: VITAL SIGNS: Heart rate is 89 beats per minute. Blood pressure is 102/62, respiratory rate is 14. CHEST: Reveals diminished air entry at the bases. HEART: Reveals first and second heart sounds. No gallop. EXTREMITIES: Did not reveal any edema. Peripheral pulses are felt. Patient is currently on Lopressor 12.5 b.i.d., dopamine, aspirin, Plavix, Lipitor, and amiodarone along with the nebulizers. ASSESSMENT AND PLAN: 1. Three-vessel coronary artery disease, status post bypass surgery. 2. Ischemic cardiomyopathy. PLAN: Will continue the patient on current medications. MMODL / IJN: [id number] /
[2024-02-28] MEDS: FUROSEMIDE 10 MG/ML 4 ML VIAL IV STA (10:00)
[2024-02-28] MEDS: INSULIN DETEMIR (LEVEMIR) 100 UNIT/ML SYR SQ SCH ×2 (10:01→21:26)
[2024-02-28 10:15] LABS: Glucose,Whole Blood 141 mg/dL (70-110)
[2024-02-28 10:42] LABS: Amylase 51 U/L (30-110); Lipase 19 U/L (23-300)
--- NOTE | 2024-02-28 10:50 | P.PN ---
Subjective Patient is seen in follow-up for acute kidney injury. Renal function little worse today. Urine output about 20 cc an hour. Underwent CABG February 26, 2024. Remains on dopamine and amiodarone drip. Vital signs are stable. General: No acute distress. HEENT: Head exam is unremarkable. On nasal cannula. LUNGS: Chest tubes noted. HEART: Rate and Rhythm are regular. ABDOMEN: Nontender. EXTREMITITES: No edema. Objective - Vital Signs Vital signs: Vital Signs Temp 99.0 F 02/28/24 08:00 Pulse 76 02/28/24 10:00 Resp 18 02/28/24 10:00 BP 93/54 02/28/24 10:00 Pulse Ox 98 02/28/24 10:00 FiO2 40 02/26/24 16:39 Intake & Output 02/27/24 02/28/24 02/28/24 18:59 06:59 18:59 Intake Total 917.870 588.204 0.64 Output Total 585 560 Balance 332.870 28.204 0.64 Weight 76.8 kg 75.8 kg Intake: IV 879 577 .9NS Cardiac Output 140 100 .9NS Pressure Bag 99 87 Albumin Human 5% 250 ml 250 In Empty Bag 1 bag @ 250 mls/hr IVPB Q1HR PRN Rx#: [id number] Lactated Ringers 1,000 ml 390 390 @ 20 mls/hr IV .Q24H LYNDSAY Rx#:[id number] Intake, IV Titration 38.870 11.204 0.64 Amount Insulin Regular 100 unit 12.795 11.204 0.64 In Sodium Chloride 0.9% 100 ml @ Per Protocol IV .Q0M LYNDSAY Rx#:[id number] Nitroglycerin-D5w Pmx 50 26.075 mg In Dextrose/Water 1 250ml.bag @ 5 MCG/MIN 1.5 mls/hr IV .Q24H LYNDSAY Rx#: [id number] Output: Chest Tube Drainage 340 300 Left Pleural Chest Tube 190 200 Mediastinal Chest Tube 10 Right Pleural Chest Tube 140 100 Drainage 0 Left Calf 0 Urine 245 260 Other: Voiding Method Indwelling Catheter Indwelling Catheter ABP, PAP, CO, CI - Last Documented Arterial Blood Pressure 139/47 Pulmonary Artery Pressure 32/17 Cardiac Output 3.6 Cardiac Index 1.9 - Labs CBC & Chem 7: 02/28/24 06:05 02/28/24 06:05 Labs: Abnormal Lab Results - Last 24 Hours (Table) 02/27/24 02/27/24 02/27/24 Range/Units 03:55 11:04 12:05 WBC (3.8-10.6) k/uL RBC (3.80-5.40) m/uL Hgb (11.4-16.0) gm/dL Hct (34.0-46.0) % MCHC (31.0-37.0) g/dL Neutrophils # (1.3-7.7) k/uL Lymphocytes # (1.0-4.8) k/uL Monocytes # (0-1.0) k/uL Sodium (137-145) mmol/L Carbon Dioxide (22-30) mmol/L BUN (7-17) mg/dL Creatinine (0.52-1.04) mg/dL Glucose (74-99) mg/dL POC Glucose (mg/dL) 127 H 116 H (70-110) mg/dL Iron 15 L (50-170) UG/DL TIBC 164 L (228-460) UG/DL % Saturation 9.15 L (12.00-45.00) Transferrin 117.0 L (204.0-354.0) mg/dL AST (14-36) U/L Alkaline Phosphatase (38-126) U/L Total Protein (6.3-8.2) g/dL Albumin (3.5-5.0) g/dL Lipase (23-300) U/L 02/27/24 02/27/24 02/27/24 Range/Units 13:11 14:09 15:40 WBC (3.8-10.6) k/uL RBC (3.80-5.40) m/uL Hgb (11.4-16.0) gm/dL Hct (34.0-46.0) % MCHC (31.0-37.0) g/dL Neutrophils # (1.3-7.7) k/uL Lymphocytes # (1.0-4.8) k/uL Monocytes # (0-1.0) k/uL Sodium (137-145) mmol/L Carbon Dioxide (22-30) mmol/L BUN (7-17) mg/dL Creatinine (0.52-1.04) mg/dL Glucose (74-99) mg/dL POC Glucose (mg/dL) 129 H 127 H 128 H (70-110) mg/dL Iron (50-170) UG/DL TIBC (228-460) UG/DL % Saturation (12.00-45.00) Transferrin (204.0-354.0) mg/dL AST (14-36) U/L Alkaline Phosphatase (38-126) U/L Total Protein (6.3-8.2) g/dL Albumin (3.5-5.0) g/dL Lipase (23-300) U/L 02/27/24 02/27/24 02/27/24 Range/Units 17:09 18:26 20:00 WBC (3.8-10.6) k/uL RBC (3.80-5.40) m/uL Hgb (11.4-16.0) gm/dL Hct (34.0-46.0) % MCHC (31.0-37.0) g/dL Neutrophils # (1.3-7.7) k/uL Lymphocytes # (1.0-4.8) k/uL Monocytes # (0-1.0) k/uL Sodium (137-145) mmol/L Carbon Dioxide (22-30) mmol/L BUN (7-17) mg/dL Creatinine (0.52-1.04) mg/dL Glucose (74-99) mg/dL POC Glucose (mg/dL) 153 H 139 H 140 H (70-110) mg/dL Iron (50-170) UG/DL TIBC (228-460) UG/DL % Saturation (12.00-45.00) Transferrin (204.0-354.0) mg/dL AST (14-36) U/L Alkaline Phosphatase (38-126) U/L Total Protein (6.3-8.2) g/dL Albumin (3.5-5.0) g/dL Lipase (23-300) U/L 02/27/24 02/27/24 02/27/24 Range/Units 20:30 21:17 23:01 WBC 12.7 H (3.8-10.6) k/uL RBC 3.65 L (3.80-5.40) m/uL Hgb 10.8 L (11.4-16.0) gm/dL Hct (34.0-46.0) % MCHC 30.9 L (31.0-37.0) g/dL Neutrophils # 10.3 H (1.3-7.7) k/uL Lymphocytes # 0.9 L (1.0-4.8) k/uL Monocytes # (0-1.0) k/uL Sodium (137-145) mmol/L Carbon Dioxide (22-30) mmol/L BUN (7-17) mg/dL Creatinine (0.52-1.04) mg/dL Glucose (74-99) mg/dL POC Glucose (mg/dL) 124 H 134 H (70-110) mg/dL Iron (50-170) UG/DL TIBC (228-460) UG/DL % Saturation (12.00-45.00) Transferrin (204.0-354.0) mg/dL AST (14-36) U/L Alkaline Phosphatase (38-126) U/L Total Protein (6.3-8.2) g/dL Albumin (3.5-5.0) g/dL Lipase (23-300) U/L 02/28/24 02/28/24 02/28/24 Range/Units 00:01 00:58 02:04 WBC (3.8-10.6) k/uL RBC (3.80-5.40) m/uL Hgb (11.4-16.0) gm/dL Hct (34.0-46.0) % MCHC (31.0-37.0) g/dL Neutrophils # (1.3-7.7) k/uL Lymphocytes # (1.0-4.8) k/uL Monocytes # (0-1.0) k/uL Sodium (137-145) mmol/L Carbon Dioxide (22-30) mmol/L BUN (7-17) mg/dL Creatinine (0.52-1.04) mg/dL Glucose (74-99) mg/dL POC Glucose (mg/dL) 158 H 147 H 131 H (70-110) mg/dL Iron (50-170) UG/DL TIBC (228-460) UG/DL % Saturation (12.00-45.00) Transferrin (204.0-354.0) mg/dL AST (14-36) U/L Alkaline Phosphatase (38-126) U/L Total Protein (6.3-8.2) g/dL Albumin (3.5-5.0) g/dL Lipase (23-300) U/L 02/28/24 02/28/24 02/28/24 Range/Units 03:06 04:05 05:01 WBC (3.8-10.6) k/uL RBC (3.80-5.40) m/uL Hgb (11.4-16.0) gm/dL Hct (34.0-46.0) % MCHC (31.0-37.0) g/dL Neutrophils # (1.3-7.7) k/uL Lymphocytes # (1.0-4.8) k/uL Monocytes # (0-1.0) k/uL Sodium (137-145) mmol/L Carbon Dioxide (22-30) mmol/L BUN (7-17) mg/dL Creatinine (0.52-1.04) mg/dL Glucose (74-99) mg/dL POC Glucose (mg/dL) 143 H 142 H 133 H (70-110) mg/dL Iron (50-170) UG/DL TIBC (228-460) UG/DL % Saturation (12.00-45.00) Transferrin (204.0-354.0) mg/dL AST (14-36) U/L Alkaline Phosphatase (38-126) U/L Total Protein (6.3-8.2) g/dL Albumin (3.5-5.0) g/dL Lipase (23-300) U/L 02/28/24 02/28/24 02/28/24 Range/Units 06:05 06:05 06:05 WBC 12.4 H (3.8-10.6) k/uL RBC 3.35 L (3.80-5.40) m/uL Hgb 10.2 L (11.4-16.0) gm/dL Hct 32.2 L (34.0-46.0) % MCHC (31.0-37.0) g/dL Neutrophils # 9.7 H (1.3-7.7) k/uL Lymphocytes # (1.0-4.8) k/uL Monocytes # 1.3 H (0-1.0) k/uL Sodium 135 L (137-145) mmol/L Carbon Dioxide 20 L (22-30) mmol/L BUN 62 H (7-17) mg/dL Creatinine 3.07 H (0.52-1.04) mg/dL Glucose 118 H (74-99) mg/dL POC Glucose (mg/dL) (70-110) mg/dL Iron (50-170) UG/DL TIBC (228-460) UG/DL % Saturation (12.00-45.00) Transferrin (204.0-354.0) mg/dL AST 48 H (14-36) U/L Alkaline Phosphatase 180 H (38-126) U/L Total Protein 5.7 L (6.3-8.2) g/dL Albumin 2.8 L (3.5-5.0) g/dL Lipase 19 L (23-300) U/L 02/28/24 02/28/24 02/28/24 Range/Units 06:09 06:48 08:01 WBC (3.8-10.6) k/uL RBC (3.80-5.40) m/uL Hgb (11.4-16.0) gm/dL Hct (34.0-46.0) % MCHC (31.0-37.0) g/dL Neutrophils # (1.3-7.7) k/uL Lymphocytes # (1.0-4.8) k/uL Monocytes # (0-1.0) k/uL Sodium (137-145) mmol/L Carbon Dioxide (22-30) mmol/L BUN (7-17) mg/dL Creatinine (0.52-1.04) mg/dL Glucose (74-99) mg/dL POC Glucose (mg/dL) 125 H 118 H 129 H (70-110) mg/dL Iron (50-170) UG/DL TIBC (228-460) UG/DL % Saturation (12.00-45.00) Transferrin (204.0-354.0) mg/dL AST (14-36) U/L Alkaline Phosphatase (38-126) U/L Total Protein (6.3-8.2) g/dL Albumin (3.5-5.0) g/dL Lipase (23-300) U/L 02/28/24 Range/Units 10:13 WBC (3.8-10.6) k/uL RBC (3.80-5.40) m/uL Hgb (11.4-16.0) gm/dL Hct (34.0-46.0) % MCHC (31.0-37.0) g/dL Neutrophils # (1.3-7.7) k/uL Lymphocytes # (1.0-4.8) k/uL Monocytes # (0-1.0) k/uL Sodium (137-145) mmol/L Carbon Dioxide (22-30) mmol/L BUN (7-17) mg/dL Creatinine (0.52-1.04) mg/dL Glucose (74-99) mg/dL POC Glucose (mg/dL) 141 H (70-110) mg/dL Iron (50-170) UG/DL TIBC (228-460) UG/DL % Saturation (12.00-45.00) Transferrin (204.0-354.0) mg/dL AST (14-36) U/L Alkaline Phosphatase (38-126) U/L Total Protein (6.3-8.2) g/dL Albumin (3.5-5.0) g/dL Lipase (23-300) U/L Assessment and Plan Plan: Assessment: 1. Acute kidney injury secondary to ATN secondary to cardiorenal syndrome. Renal function worse. Creatinine 3.07 today. Creatinine as low as 0.98 dated March 01, 2022. No hydronephrosis noted on kidney ultrasound. Serologies negative. 2. Acute on chronic systolic CHF with ejection fraction of 20 to 25% with mo derate to severe mitral regurgitation and mild pulmonary hypertension. 3. Volume overload. Improved with diuresis. 4. Anemia. Iron deficiency noted. Seen by GI. Status post blood transfusion this admission. Also received IV DDAVP. 5. Metabolic acidosis secondary to acute kidney injury and IV fluids. 6. Hypervolemic hyponatremia. Also component of hypertonicity from hyperglycemia. Stable. 7. Urinary retention status post [place] catheter placement. Plan: Status post IV Lasix this morning. Currently on IV amiodarone and dopamine. Avoid nephrotoxins. Continue to monitor renal function and urine output. Add IV iron.
[2024-02-28 11:23] LABS: Glucose,Whole Blood 135 mg/dL (70-110)
[2024-02-28] MEDS: SODIUM FERRIC GLUCONAT-SUCROSE 125 MG in SODIUM CHLORIDE 0.9% 100 ML IVPB SCH (11:24)
[2024-02-28] MEDS ORDERED: DEXTROSE 50% SYRINGE 50 ML IVP PRN ×2 (12:21)
[2024-02-28] MEDS: INSULIN ASPART (NovoLOG) 100 UNIT/ML VIAL SQ SCH (13:33)
--- NOTE | 2024-02-28 13:36 | P.PN ---
Subjective Progress Note Date: 02/28/24 Patient 02/26/2024, the patient is being seen immediately after she arrived to the intensive care unit. This patient has been in the hospital for almost 2 weeks. She sustained an acute non-ST segment elevation myocardial infarction. She has severe ischemic cardiomyopathy with an ejection fraction of 20 to 25% along with moderate to severe mitral regurgitation. The patient was optimized and subsequently the patient was taken to the operating room for cardiac revascularization surgery. The patient is known to have COPD, diabetes mellitus type 1, hypertension hyperlipidemia previous history of CVA and hypothyroidism along with fibromyalgia. She is a chronic smoker who carries [id number] smoki ng history. The patient underwent off-pump coronary bypass surgery x 4 with sequential RUSSO to LAD and diagonal and SVG to PDA and second obtuse marginal and closure of the left atrial appendage. An intra-aortic balloon pump was also inserted intraoperatively. At this point in time, the patient is intubated and on mechanical ventilator. The patient was on assist-control mode of mechanical ventilation at the rate of 14, tidal volume of 400 with an FiO2 of 100% with a PEEP of 5. The patient had an initial blood gas that showed a pH of 7.34 with pCO2 of 46 and pO2 of 265. Based on that, the FiO2 was gradually weaned off and the respiratory rate was increased up to 22. Subsequently, the patient remained hemodynamically stable. In fact, her current cardiac output is at 4.8 with an index of 2.6 while being augmented with a one-to-one intra-aortic balloon pump support with a mean augmented arterial pressure of 83-85. She has been on nitroglycerin drip which is running at 5 mg/min and she is also on dopamine at 3 mcg/kg/min. The patient is producing adequate amount of cardiac output. Cardiac rhythm is sinus and the patient is currently on amiodarone. The chest x-ray that was done in the ICU shows adequate expansion of both lungs. The patient has a right IJ [place]-Jamal catheter in place and ET tube is around 2 cm above the anthony and the patient has a right pleural left pleural and mediastinal chest tube. Output from the chest tubes have been essentially low in the order of 100-150 cc from the chest tube just arrived from the operating room. Based on her stable condition, the patient was taken gradually off the propofol and the patient is currently undergoing a spontaneous breathing trial with a pressure support of 5 and a PEEP of 5. The weaning parameters were karie quate. The blood work today postop showed a sodium level of 136 with a potassium level of 4.2, BUN is 57 with a creatinine of 2.6 and the patient has a white cell count of 4.9 with a hemoglobin of 9 and a platelet count of 252. She is arousable and she is following commands and moving all 4 extremities without any limitation. She is currently afebrile. 02/27/2024, patient is being seen for a follow-up. Noted the patient is postop day #1 following a coronary artery bypass surgery. The patient underwent an off-pump four-vessel bypass surgery. She required intra-aortic balloon pump support postoperatively. The patient is currently doing well. She is extubated on 2 L of oxygen by nasal cannula. Intra-aortic balloon pump was removed today. [place]-Jamal catheter still in place. PA pressures of 37/60. CVP is at 13. Cardiac output is at 5.1 with an index of 2.7. The left lower chest tube has drained 460 cc over the past 24 hours, right lower chest tube and drain 240 cc in the mediastinum has drained 200 cc. The patient is still on nitroglycerin drip at low-dose. Remains on insulin drip at 1.5 units an hour. Remains on a amiodarone maintenance of 0.5 mg/min and the patient is on a normal sinus rhythm. Dopamine is running at 2 mcg/kg/min. No specific complaints. Resting comfortably in bed. Chest x-ray shows no evidence of any pneumothorax. Lungs are well-expanded and the tubes are in place. WBC count of 8.1 with a hemoglobin 9.4 and a platelet count of 328. Sodium is at 134, BUN is 57 with a creatinine of 2.6 and a serum bicarb is at 21. Blood sugars are under adequate control at this point in time while being on insulin drip. Awake and alert and communicating. On 02/28/2024, I am seeing the patient for a follow-up. The patient is postop day #2. Awake and alert and sitting up in the chair. Mediastinal chest tube has been removed. Right lower chest tube and drains are out 4 the intra-aortic balloon pump has been removed. Exit site is clean. The patient remains on dopamine 70 cc over the past 24 hours and a left pleural chest tube with drain 870 cc over the past 24 hours. The patient is currently on 2 L of O2 nasal cannula. At 2 mcg/kg/min. The patient has been switched to oral amiodarone 4 mg p.o. twice a day and the patient is also on metoprolol 12.5 mg twice a day and the patient on aspirin and Plavix. Insulin drip is still running at 1 unit an hour. Using incentive spirometer, pulling approximately 500 cc. Blood work from today shows WBC count of 12.4 with a hemoglobin 10.2, BUN 62 with a creatinine of 3.07 and a sodium levels at 135 with a bicarb level is at 20. Chest x-ray shows essentially postsurgical changes. Mediastinal chest tube has been removed. The right and the pleural chest tubes are still in place. Cannot rule out very tiny apical pneumothoraces. There is some mild pulm vessel congestion. Otherwise, no other significant events overnight and the patient is alert and awake and communicating. Objective - Vital Signs Vital signs: Vital Signs Temp 99.0 F 02/28/24 08:00 Pulse 85 02/28/24 08:00 Resp 16 02/28/24 08:00 BP 111/58 02/28/24 08:00 Pulse Ox 97 02/28/24 08:00 FiO2 40 02/26/24 16:39 Intake & Output 02/27/24 02/28/24 02/28/24 18:59 06:59 18:59 Intake Total 917.870 588.204 0.64 Output Total 585 560 Balance 332.870 28.204 0.64 Weight 76.8 kg 75.8 kg Intake: IV 879 577 .9NS Cardiac Output 140 100 .9NS Pressure Bag 99 87 Albumin Human 5% 250 ml 250 In Empty Bag 1 bag @ 250 mls/hr IVPB Q1HR PRN Rx#: [id number] Lactated Ringers 1,000 ml 390 390 @ 20 mls/hr IV .Q24H [facility] Rx#:[id number] Intake, IV Titration 38.870 11.204 0.64 Amount Insulin Regular 100 unit 12.795 11.204 0.64 In Sodium Chloride 0.9% 100 ml @ Per Protocol IV .Q0M [facility] Rx#:[id number] Nitroglycerin-D5w Pmx 50 26.075 mg In Dextrose/Water 1 250ml.bag @ 5 MCG/MIN 1.5 mls/hr IV .Q24H [facility] Rx#: [id number] Output: Chest Tube Drainage 340 300 Left Pleural Chest Tube 190 200 Mediastinal Chest Tube 10 Right Pleural Chest Tube 140 100 Drainage 0 Left Calf 0 Urine 245 260 Other: Voiding Method Indwelling Catheter Indwelling Catheter ABP, PAP, CO, CI - Last Documented Arterial Blood Pressure 139/47 Pulmonary Artery Pressure 26/14 Cardiac Output 3.6 Cardiac Index 1.9 - Exam GENERAL EXAM: Alert, 58-year-old white female, resting comfortably in bed, the patient is awake and oriented x 3 on 2 L of oxygen by nasal cannula, extubated HEAD: Normocephalic and atraumatic EYES: Normal reaction of pupils, equal size. NOSE: Clear with pink turbinates. THROAT: No erythema or exudates. NECK: No masses, no JVD. CHEST: No chest wall deformity. LUNGS: The patient has a right lower and left lower chest tube. Thoracotomy scar is dry clean and intact. Breath sounds equal and symmetrical bilaterally. CVS: S1 and S2 normal with no audible murmur, regular rhythm. No extra heart sounds ABDOMEN: No hepatosplenomegaly, active bowel sounds, no guarding or rigidity. SPINE: No scoliosis or deformity SKIN: No rashes CENTRAL NERVOUS SYSTEM: No focal deficits, tone is normal in all 4 extremities. EXTREMITIES: There is bilateral lower has equal and symmetrical pulses in the lower extremities bilaterally. 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 Extremities are warm. - Labs CBC & Chem 7: 02/28/24 06:05 02/28/24 06:05 Labs: Abnormal Lab Results - Last 24 Hours (Table) 02/27/24 02/27/24 02/27/24 Range/Units 03:55 09:03 10:03 WBC (3.8-10.6) k/uL RBC (3.80-5.40) m/uL Hgb (11.4-16.0) gm/dL Hct (34.0-46.0) % MCHC (31.0-37.0) g/dL Neutrophils # (1.3-7.7) k/uL Lymphocytes # (1.0-4.8) k/uL Sodium (137-145) mmol/L Carbon Dioxide (22-30) mmol/L BUN (7-17) mg/dL Creatinine (0.52-1.04) mg/dL Glucose (74-99) mg/dL POC Glucose (mg/dL) 141 H 137 H (70-110) mg/dL Iron 15 L (50-170) UG/DL TIBC 164 L (228-460) UG/DL % Saturation 9.15 L (12.00-45.00) Transferrin 117.0 L (204.0-354.0) mg/dL AST (14-36) U/L Alkaline Phosphatase (38-126) U/L Total Protein (6.3-8.2) g/dL Albumin (3.5-5.0) g/dL 02/27/24 02/27/24 02/27/24 Range/Units 11:04 12:05 13:11 WBC (3.8-10.6) k/uL RBC (3.80-5.40) m/uL Hgb (11.4-16.0) gm/dL Hct (34.0-46.0) % MCHC (31.0-37.0) g/dL Neutrophils # (1.3-7.7) k/uL Lymphocytes # (1.0-4.8) k/uL Sodium (137-145) mmol/L Carbon Dioxide (22-30) mmol/L BUN (7-17) mg/dL Creatinine (0.52-1.04) mg/dL Glucose (74-99) mg/dL POC Glucose (mg/dL) 127 H 116 H 129 H (70-110) mg/dL Iron (50-170) UG/DL TIBC (228-460) UG/DL % Saturation (12.00-45.00) Transferrin (204.0-354.0) mg/dL AST (14-36) U/L Alkaline Phosphatase (38-126) U/L Total Protein (6.3-8.2) g/dL Albumin (3.5-5.0) g/dL 02/27/24 02/27/24 02/27/24 Range/Units 14:09 15:40 17:09 WBC (3.8-10.6) k/uL RBC (3.80-5.40) m/uL Hgb (11.4-16.0) gm/dL Hct (34.0-46.0) % MCHC (31.0-37.0) g/dL Neutrophils # (1.3-7.7) k/uL Lymphocytes # (1.0-4.8) k/uL Sodium (137-145) mmol/L Carbon Dioxide (22-30) mmol/L BUN (7-17) mg/dL Creatinine (0.52-1.04) mg/dL Glucose (74-99) mg/dL POC Glucose (mg/dL) 127 H 128 H 153 H (70-110) mg/dL Iron (50-170) UG/DL TIBC (228-460) UG/DL % Saturation (12.00-45.00) Transferrin (204.0-354.0) mg/dL AST (14-36) U/L Alkaline Phosphatase (38-126) U/L Total Protein (6.3-8.2) g/dL Albumin (3.5-5.0) g/dL 02/27/24 02/27/24 02/27/24 Range/Units 18:26 20:00 20:30 WBC 12.7 H (3.8-10.6) k/uL RBC 3.65 L (3.80-5.40) m/uL Hgb 10.8 L (11.4-16.0) gm/dL Hct (34.0-46.0) % MCHC 30.9 L (31.0-37.0) g/dL Neutrophils # 10.3 H (1.3-7.7) k/uL Lymphocytes # 0.9 L (1.0-4.8) k/uL Sodium (137-145) mmol/L Carbon Dioxide (22-30) mmol/L BUN (7-17) mg/dL Creatinine (0.52-1.04) mg/dL Glucose (74-99) mg/dL POC Glucose (mg/dL) 139 H 140 H (70-110) mg/dL Iron (50-170) UG/DL TIBC (228-460) UG/DL % Saturation (12.00-45.00) Transferrin (204.0-354.0) mg/dL AST (14-36) U/L Alkaline Phosphatase (38-126) U/L Total Protein (6.3-8.2) g/dL Albumin (3.5-5.0) g/dL 02/27/24 02/27/24 02/28/24 Range/Units 21:17 23:01 00:01 WBC (3.8-10.6) k/uL RBC (3.80-5.40) m/uL Hgb (11.4-16.0) gm/dL Hct (34.0-46.0) % MCHC (31.0-37.0) g/dL Neutrophils # (1.3-7.7) k/uL Lymphocytes # (1.0-4.8) k/uL Sodium (137-145) mmol/L Carbon Dioxide (22-30) mmol/L BUN (7-17) mg/dL Creatinine (0.52-1.04) mg/dL Glucose (74-99) mg/dL POC Glucose (mg/dL) 124 H 134 H 158 H (70-110) mg/dL Iron (50-170) UG/DL TIBC (228-460) UG/DL % Saturation (12.00-45.00) Transferrin (204.0-354.0) mg/dL AST (14-36) U/L Alkaline Phosphatase (38-126) U/L Total Protein (6.3-8.2) g/dL Albumin (3.5-5.0) g/dL 02/28/24 02/28/24 02/28/24 Range/Units 00:58 02:04 03:06 WBC (3.8-10.6) k/uL RBC (3.80-5.40) m/uL Hgb (11.4-16.0) gm/dL Hct (34.0-46.0) % MCHC (31.0-37.0) g/dL Neutrophils # (1.3-7.7) k/uL Lymphocytes # (1.0-4.8) k/uL Sodium (137-145) mmol/L Carbon Dioxide (22-30) mmol/L BUN (7-17) mg/dL Creatinine (0.52-1.04) mg/dL Glucose (74-99) mg/dL POC Glucose (mg/dL) 147 H 131 H 143 H (70-110) mg/dL Iron (50-170) UG/DL TIBC (228-460) UG/DL % Saturation (12.00-45.00) Transferrin (204.0-354.0) mg/dL AST (14-36) U/L Alkaline Phosphatase (38-126) U/L Total Protein (6.3-8.2) g/dL Albumin (3.5-5.0) g/dL 02/28/24 02/28/24 02/28/24 Range/Units 04:05 05:01 06:05 WBC 12.4 H (3.8-10.6) k/uL RBC 3.35 L (3.80-5.40) m/uL Hgb 10.2 L (11.4-16.0) gm/dL Hct 32.2 L (34.0-46.0) % MCHC (31.0-37.0) g/dL Neutrophils # (1.3-7.7) k/uL Lymphocytes # (1.0-4.8) k/uL Sodium (137-145) mmol/L Carbon Dioxide (22-30) mmol/L BUN (7-17) mg/dL Creatinine (0.52-1.04) mg/dL Glucose (74-99) mg/dL POC Glucose (mg/dL) 142 H 133 H (70-110) mg/dL Iron (50-170) UG/DL TIBC (228-460) UG/DL % Saturation (12.00-45.00) Transferrin (204.0-354.0) mg/dL AST (14-36) U/L Alkaline Phosphatase (38-126) U/L Total Protein (6.3-8.2) g/dL Albumin (3.5-5.0) g/dL 02/28/24 02/28/24 02/28/24 Range/Units 06:05 06:09 06:48 WBC (3.8-10.6) k/uL RBC (3.80-5.40) m/uL Hgb (11.4-16.0) gm/dL Hct (34.0-46.0) % MCHC (31.0-37.0) g/dL Neutrophils # (1.3-7.7) k/uL Lymphocytes # (1.0-4.8) k/uL Sodium 135 L (137-145) mmol/L Carbon Dioxide 20 L (22-30) mmol/L BUN 62 H (7-17) mg/dL Creatinine 3.07 H (0.52-1.04) mg/dL Glucose 118 H (74-99) mg/dL POC Glucose (mg/dL) 125 H 118 H (70-110) mg/dL Iron (50-170) UG/DL TIBC (228-460) UG/DL % Saturation (12.00-45.00) Transferrin (204.0-354.0) mg/dL AST 48 H (14-36) U/L Alkaline Phosphatase 180 H (38-126) U/L Total Protein 5.7 L (6.3-8.2) g/dL Albumin 2.8 L (3.5-5.0) g/dL 02/28/24 Range/Units 08:01 WBC (3.8-10.6) k/uL RBC (3.80-5.40) m/uL Hgb (11.4-16.0) gm/dL Hct (34.0-46.0) % MCHC (31.0-37.0) g/dL Neutrophils # (1.3-7.7) k/uL Lymphocytes # (1.0-4.8) k/uL Sodium (137-145) mmol/L Carbon Dioxide (22-30) mmol/L BUN (7-17) mg/dL Creatinine (0.52-1.04) mg/dL Glucose (74-99) mg/dL POC Glucose (mg/dL) 129 H (70-110) mg/dL Iron (50-170) UG/DL TIBC (228-460) UG/DL % Saturation (12.00-45.00) Transferrin (204.0-354.0) mg/dL AST (14-36) U/L Alkaline Phosphatase (38-126) U/L Total Protein (6.3-8.2) g/dL Albumin (3.5-5.0) g/dL Assessment and Plan Assessment: Multivessel coronary artery disease and the patient is status post acute non-ST elevation ID, the patient underwent four-vessel bypass surgery off-pump which included sequential RUSSO to To the LAD and diagonal and SVG to PDA and second obtuse marginal branch and the patient is currently postop day day # 2 the intra-aortic balloon pump has been removed. The patient is clinically and hemodynamically stable. The patient was extubated yesterday without any major difficulties. Cardiac rhythm is stable and hemodynamic parameters are all stable. The patient is currently on aspirin and Plavix. The patient is on oral amiodarone and the cardiac rhythm is sinus. The patient on metoprolol 12.5 mg twice a day. Postthoracotomy, currently intubated on the mechanical ventilator. Mediastinal chest tube has been removed. The patient has a right pleural and left lower chest tubes in place. Extubated to 2 L of oxygen by nasal cannula without any major difficulties. Ischemic cardiomyopathy with an estimated left ventricular ejection fraction severely impaired at 20 to 25% as well as moderate to severe mitral valve regurgitation Normocytic normochromic anemia, Chronic kidney disease the patient is renal function is stable Chronic obstructive pulmonary disease, stable Diabetes mellitus type 1, had HbA1c at the time of admission was 7.1 History of hyperlipidemia History of hypertension History of CVA/TIA History of hypothyroidism History of fibromyalgia History of GERD Mildly elevated LFTs, hepatitis panel nonreactive Former tobacco smoker as of 55 days ago, before this 1/2 pack/day or approximately 15-year pack history' Previous history of methamphetamine use Plan: Oxygen at 2 L/min nasal cannula and encourage use of incentive spirometer. Right and left pleural chest tube In place Intra-aortic aortic balloon pump has been removed Continue dopamine which is currently running at 2 mcg/kg/min. Continue aspirin and Plavix Continue oral amiodarone Continue metoprolol 12.5 mg p.o. twice a day Chest x-ray was noted [place]-Jamal catheter removed today Insulin drip and the patient will be started on Levemir insulin 10 units along with sliding scale coverage. Pain management Monitor renal function continue dopamine for another 24 hours at 2 mcg/kg/min Will continue to follow and make further recommendations based on her progress.
[2024-02-28] MEDS: hydrALAZINE HCL 10 MG TAB PO SCH (14:59)
[2024-02-28] MEDS: ALBUMIN HUMAN 25% 50 ML in EMPTY BAG 1 BAG IVPB STA (15:46)
[2024-02-28] MEDS ORDERED: FUROSEMIDE 10 MG/ML 4 ML VIAL IV SCH (16:00)
[2024-02-28 16:05] LABS: Glucose,Whole Blood 231 mg/dL (70-110)
[2024-02-28] MEDS: hydrALAZINE HCL 20 MG/ML 1 ML VIAL IVP STA ×2 (17:39→20:05)
[2024-02-28] MEDS: ALBUMIN HUMAN 25% 50 ML in EMPTY BAG 1 BAG IVPB ONE (18:53)
[2024-02-28 21:08] LABS: Glucose,Whole Blood 177 mg/dL (70-110)
[2024-02-29] MEDS: BENZOCAINE/MENTHOL LOZENG 1 EACH LOZENGE MUCOUS MEM PRN (01:41)
[2024-02-29] MEDS: hydrALAZINE HCL 10 MG TAB PO SCH ×2 (01:49→06:56)
[2024-02-29] MEDS: ALBUMIN HUMAN 5% 500 ML in EMPTY BAG 1 BAG IVPB ONE ×2 (03:25→15:58)
--- NOTE | 2024-02-29 05:29 | P.PN ---
Subjective Progress Note Date: 02/28/24 This is a pleasant 58 years old female with past medical history of multiple medical problems as below She has been incarcerated for 52 days, there is officer at bedside. Patient presents because of shortness of breath and exertional dyspnea has for the last 2 days, she states she hears herself wheezing when she lies down. Currently she is breathing quietly. She is complaining for mild chest pain on the left side, nonradiating nonspecific, feels much better now and very mild. She has occasional cough but no phlegm. Also she is complaining from upset stomach but no diarrhea or vomiting She complains from decreased urination but no dysuria or urgency. She has mild headache feels generally weak but no dizziness or blurry vision. She used to smoke half pack per day before she got incarcerated No alcohol or illicit drugs. She follow-up with her cotton converter Dr. Donal Herrera and learning analyst Dr. Babb who examined her about 2 months ago where she has some mild ulcer In the bottom of her right total This morning patient has low-grade fever 100.2 She is also mildly tachypneic around 22 She is saturating 93% on 2 L oxygen via nasal cannula Labs reviewed showing hemoglobin of 7.7, rest of CBC is unremarkable BMP liver enzymes not elevated. INR 0.9. Lactic 0.9 proBNP is elevated 25 100 EKG showing sinus rhythm at [address]-T changes, no left bundle branch block 02/17/2024 --Patient is seen and evaluated in room at bedside; remains on Lasix drip, remains in negative fluid balance - patient underwent cardiac catheterization which revealed severe triple-vessel coronary artery disease and now she is being evaluated for possible myocardial revascularization. Patient remains on oxygen at 2 L/min and her O2 sats is 97%, her PFT showed severe obstructive lung disease, however not severe enough to not consider myocardial revascularization if the patient is cleared by other consultants including nephrology and cardiology. Patient has been a smoker over the years, she had at least a [id number] smoking history. Remind you patient had a PFT with chest x-ray still showing evidence of pulmonary edema which will definitely compromise her PFT will likely reflect more restriction than obstructive lung disease. WBC count today is 4.9 hemoglobin 7.7 electrolytes are normal BUN is 85 creatinine 3.59 02/18/2024 Patient is seen and evaluated in room at bedside; sitting up in bed; ports stabl e breathing - patient underwent AFRICA which revealed aortic valve tricuspid and functioning normally. Mitral valve structurally normal with mild central secondary mitral regurgitation. Pulmonary vein flow has systolic dominance. Tricuspid valve appears to be normal with mild tricuspid regurgitation. Intra-atrial septum is intact with no evidence of PFO. Left atrial appendage free of clot. LV EF 35% with global hypokinesis. -- Patient is followed by cardiothoracic surgery and also nephrology. Nephrology not recommending any indication or need for hemodialysis. Patient remains on Lasix drip per nephrology. Patient has a negative fluid balance of 1322. Repeat blood work reveals hemoglobin is 7.9. BUN 82 creatinine 3.39. Mild elevation in liver function test. -Plan for surgery once clinically optimized 02/19/2024 Patient looks more awake than admission, sitting up in bed. [facility] officers at bedside Mentation at baseline. She talks freely. Denies chest pain or dyspnea at rest On presentation patient was found acute CHF and non-STEMI, workup showing triple-vessel coronary artery disease and patient will require bypass procedure with cardiothoracic surgery team on the case once medically optimized. Patient currently with fluid overload on Lasix drip, on admission it was 5 mg/h, currently increased to 10 mg/h. She is making around 1 L of urine output by yesterday. Saldaña catheter in place. She is also on aspirin 81 mg Hemoglobin 8.5, creatinine 3.3 compared to 2.7 on admission with baseline 0.9- 1.2. Liver enzymes mildly elevated since admission. 02/20/2024 [facility] Workup showing severe triple-vessel coronary artery disease currently being evaluated by cardiothoracic surgery team for possible cardiac bypass procedure. However she needs optimization and she is currently kept on IV Lasix 10 mg, creatinine went up 3.3 today. Slider Assembler recommended to continue with Lasix drip still tomorrow Patient diabetic, she is on Levemir 8 units twice daily, she is developing episodes of hypoglycemia we will going to lower the dose to 6 units twice daily She is also on aspirin 325 mg 02/21/2024 Patient continues to improve today, she is more energetic, less dyspneic Lasix drip switched to IV Lasix 60 mg twice daily Cardiothoracic surgery team with plan for valve replacement surgery on this coming Sunday 02/25 Sugars better controlled with no hyperglycemia on Levemir 6 units twice daily 02/22/2024 Patient breathing is stable, denies chest pain No new complaint Will go check breathing tomorrow Plan for cardiac surgery on Monday02/23/2024 Patient awake alert She feels more weak today Creatinine is up Plan for cardiac surgery early next week 02/24/2024 Patient feels weak No chest pain or dyspnea Patient anticipates surgery on Monday parole hearing officer at bedside 02/25/2024 Patient awake alert looks comfortable Generally weak Creatinine stable around 3.2 Plan for bypass cardiac surgery tomorrow, patient is agreeable to the current plan 02/26/2024 Patient is seen in follow-up today for coronary artery bypass with cardiothorac ic surgery. Patient currently n.p.o. and preop. Will await surgical report. 02/27/2024 Patient is seen in follow-up this morning currently in the ICU with multiple medical consultations following. Patient is status post bypass yesterday currently maintained on 4 L via nasal cannula. Patient is reporting some shortness of breath although biggest concern is severe nausea. Patient is maintained on Reglan and Zofran as needed. Will make Reglan scheduled. Patient did have mediastinal chest tube removed and was taken off balloon pump most recently this morning. Patient continues on insulin drip and will continue monitoring sugars closely continue with current regimen and will transition off insulin drip once patient nausea is improved and tolerating diet. Patient is afebrile at this time. 02/28/2024 Patient is seen in follow-up today currently sitting up in the chair tolerating ice chips. Patient reports continues with intermittent nausea although significantly improved. Patient remains on 2 L and has been working on incentive spirometer. Encouraged at least 10 times every hour while awake. Patient was on insulin drip with history of diabetes and being transition to sliding scale. Patient was given a dose of long-acting and will make twice daily and recommend monitoring Accu-Cheks before meals and at bedtime and 2 AM for tight glycemic control. Kidney functions are stable with nephrology following. Review of systems: Constitutional: No reports of fatigue, fever, or chills Cardiovascular: reports of chest wall pain Respiratory: No reports of shortness of breath or cough GI: reports of intermittent nausea and improving, no vomiting, or diarrhea : No reports of dysuria or retention Neurovascular: reports of generalized weakness All medications have been reviewed Physical exam: GENERAL: The patient is alert and oriented x3, pale, currently sitting up in the chair well developed, thin built. Generally weak, elderly appearing HEENT: Pupils are round and equally reacting to light. EOMI. No scleral icterus. No conjunctival pallor. Normocephalic, atraumatic. No pharyngeal erythema. No thyromegaly. CARDIOVASCULAR: S1 and S2 muffled, heart hugger noted PULMONARY: Diminished breath sounds bilaterally otherwise chest is clear to auscultation, no wheezing , faint crackles. Tachypnea ABDOMEN: Soft, nontender, nondistended, normoactive bowel sounds. No palpable organomegaly. Saldaña catheter in place MUSCULOSKELETAL: No joint swelling or deformity. EXTREMITIES: No cyanosis, clubbing, 1+ bilateral pitting leg edema. NEUROLOGICAL: Gross neurological examination did not reveal any focal deficits. Diffusely weak SKIN: No rashes. no petechiae. Pale Assessment: Acute systolic CHF exacerbation, ejection fraction: 20 to 25% non-STEMI, ekg New left bundle branch block, secondary to triple-vessel coronary artery disease status post CABG, postop day 2. Mild hypoxic respiratory failure, improving Acute kidney injury on chronic kidney disease, nonoliguric Acute on chronic anemia of chronic disease Acute urinary tract infection, urine culture showing skin or genital kwesi. Resolved Diabetes mellitus, type II, uncontrolled with hyper and hypoglycemia Continued ongoing nicotine dependence Chronic ulcers of the right big toe Chronic kidney disease stage II with acute kidney injury GI prophylaxis DVT prophylaxis Full code Plan: Cardiothoracic surgery team on the case and patient is status post bypass procedure and off balloon pump . Mediastinal chest tube removed, daily chest x- ray ordered and difficult to exclude tiny pneumothoraces, continue chest tube for now Patient was maintained on insulin drip and will transition to sliding scale along with long-acting. Patient received a dose of long-acting this morning and will make twice daily and recommend to monitor Accu-Cheks before meals and at bedtime as well as 2 AM Continue with antinausea medications as needed Nephrology following and kidney functions are stable and being closely monitored. Patient continues with indwelling Saldaña catheter for strict intake and output monitoring We will continue to follow with cardiothoracic during hospitalization. Due to multiple complex medical issues, overall prognosis is guarded The impression and plan of care has been dictated by Mandy Granda, Nurse Practitioner as directed. Dr. Jordyn MD I have performed a history and examination and MDM of this patient, discussed the same with the dictator, and agree with the dictator's assessment and plan as written ,documented as a scribe. Based on total visit time, I have performed more than 50% of the visit. Objective - Vital Signs Vital signs: Vital Signs Temp 99.0 F 02/28/24 08:00 Pulse 83 02/28/24 09:00 Resp 16 02/28/24 09:00 BP 106/58 02/28/24 09:00 Pulse Ox 96 02/28/24 09:00 FiO2 40 02/26/24 16:39 Intake & Output 02/27/24 02/28/24 02/28/24 18:59 06:59 18:59 Intake Total 917.870 588.204 0.64 Output Total 585 560 Balance 332.870 28.204 0.64 Weight 76.8 kg 75.8 kg Intake: IV 879 577 .9NS Cardiac Output 140 100 .9NS Pressure Bag 99 87 Albumin Human 5% 250 ml 250 In Empty Bag 1 bag @ 250 mls/hr IVPB Q1HR PRN Rx#: [id number] Lactated Ringers 1,000 ml 390 390 @ 20 mls/hr IV .Q24H [facility] Rx#:[id number] Intake, IV Titration 38.870 11.204 0.64 Amount Insulin Regular 100 unit 12.795 11.204 0.64 In Sodium Chloride 0.9% 100 ml @ Per Protocol IV .Q0M [facility] Rx#:[id number] Nitroglycerin-D5w Pmx 50 26.075 mg In Dextrose/Water 1 250ml.bag @ 5 MCG/MIN 1.5 mls/hr IV .Q24H [facility] Rx#: [id number] Output: Chest Tube Drainage 340 300 Left Pleural Chest Tube 190 200 Mediastinal Chest Tube 10 Right Pleural Chest Tube 140 100 Drainage 0 Left Calf 0 Urine 245 260 Other: Voiding Method Indwelling Catheter Indwelling Catheter ABP, PAP, CO, CI - Last Documented Arterial Blood Pressure 139/47 Pulmonary Artery Pressure 29/15 Cardiac Output 3.6 Cardiac Index 1.9 - Labs CBC & Chem 7: 02/28/24 06:05 02/28/24 06:05 Labs: Abnormal Lab Results - Last 24 Hours (Table) 02/27/24 02/27/24 02/27/24 Range/Units 03:55 11:04 12:05 WBC (3.8-10.6) k/uL RBC (3.80-5.40) m/uL Hgb (11.4-16.0) gm/dL Hct (34.0-46.0) % MCHC (31.0-37.0) g/dL Neutrophils # (1.3-7.7) k/uL Lymphocytes # (1.0-4.8) k/uL Monocytes # (0-1.0) k/uL Sodium (137-145) mmol/L Carbon Dioxide (22-30) mmol/L BUN (7-17) mg/dL Creatinine (0.52-1.04) mg/dL Glucose (74-99) mg/dL POC Glucose (mg/dL) 127 H 116 H (70-110) mg/dL Iron 15 L (50-170) UG/DL TIBC 164 L (228-460) UG/DL % Saturation 9.15 L (12.00-45.00) Transferrin 117.0 L (204.0-354.0) mg/dL AST (14-36) U/L Alkaline Phosphatase (38-126) U/L Total Protein (6.3-8.2) g/dL Albumin (3.5-5.0) g/dL 02/27/24 02/27/24 02/27/24 Range/Units 13:11 14:09 15:40 WBC (3.8-10.6) k/uL RBC (3.80-5.40) m/uL Hgb (11.4-16.0) gm/dL Hct (34.0-46.0) % MCHC (31.0-37.0) g/dL Neutrophils # (1.3-7.7) k/uL Lymphocytes # (1.0-4.8) k/uL Monocytes # (0-1.0) k/uL Sodium (137-145) mmol/L Carbon Dioxide (22-30) mmol/L BUN (7-17) mg/dL Creatinine (0.52-1.04) mg/dL Glucose (74-99) mg/dL POC Glucose (mg/dL) 129 H 127 H 128 H (70-110) mg/dL Iron (50-170) UG/DL TIBC (228-460) UG/DL % Saturation (12.00-45.00) Transferrin (204.0-354.0) mg/dL AST (14-36) U/L Alkaline Phosphatase (38-126) U/L Total Protein (6.3-8.2) g/dL Albumin (3.5-5.0) g/dL 02/27/24 02/27/24 02/27/24 Range/Units 17:09 18:26 20:00 WBC (3.8-10.6) k/uL RBC (3.80-5.40) m/uL Hgb (11.4-16.0) gm/dL Hct (34.0-46.0) % MCHC (31.0-37.0) g/dL Neutrophils # (1.3-7.7) k/uL Lymphocytes # (1.0-4.8) k/uL Monocytes # (0-1.0) k/uL Sodium (137-145) mmol/L Carbon Dioxide (22-30) mmol/L BUN (7-17) mg/dL Creatinine (0.52-1.04) mg/dL Glucose (74-99) mg/dL POC Glucose (mg/dL) 153 H 139 H 140 H (70-110) mg/dL Iron (50-170) UG/DL TIBC (228-460) UG/DL % Saturation (12.00-45.00) Transferrin (204.0-354.0) mg/dL AST (14-36) U/L Alkaline Phosphatase (38-126) U/L Total Protein (6.3-8.2) g/dL Albumin (3.5-5.0) g/dL 02/27/24 02/27/24 02/27/24 Range/Units 20:30 21:17 23:01 WBC 12.7 H (3.8-10.6) k/uL RBC 3.65 L (3.80-5.40) m/uL Hgb 10.8 L (11.4-16.0) gm/dL Hct (34.0-46.0) % MCHC 30.9 L (31.0-37.0) g/dL Neutrophils # 10.3 H (1.3-7.7) k/uL Lymphocytes # 0.9 L (1.0-4.8) k/uL Monocytes # (0-1.0) k/uL Sodium (137-145) mmol/L Carbon Dioxide (22-30) mmol/L BUN (7-17) mg/dL Creatinine (0.52-1.04) mg/dL Glucose (74-99) mg/dL POC Glucose (mg/dL) 124 H 134 H (70-110) mg/dL Iron (50-170) UG/DL TIBC (228-460) UG/DL % Saturation (12.00-45.00) Transferrin (204.0-354.0) mg/dL AST (14-36) U/L Alkaline Phosphatase (38-126) U/L Total Protein (6.3-8.2) g/dL Albumin (3.5-5.0) g/dL 02/28/24 02/28/24 02/28/24 Range/Units 00:01 00:58 02:04 WBC (3.8-10.6) k/uL RBC (3.80-5.40) m/uL Hgb (11.4-16.0) gm/dL Hct (34.0-46.0) % MCHC (31.0-37.0) g/dL Neutrophils # (1.3-7.7) k/uL Lymphocytes # (1.0-4.8) k/uL Monocytes # (0-1.0) k/uL Sodium (137-145) mmol/L Carbon Dioxide (22-30) mmol/L BUN (7-17) mg/dL Creatinine (0.52-1.04) mg/dL Glucose (74-99) mg/dL POC Glucose (mg/dL) 158 H 147 H 131 H (70-110) mg/dL Iron (50-170) UG/DL TIBC (228-460) UG/DL % Saturation (12.00-45.00) Transferrin (204.0-354.0) mg/dL AST (14-36) U/L Alkaline Phosphatase (38-126) U/L Total Protein (6.3-8.2) g/dL Albumin (3.5-5.0) g/dL 05/22/24 05/22/24 05/22/24 Range/Units 03:06 04:05 05:01 WBC (3.8-10.6) k/uL RBC (3.80-5.40) m/uL Hgb (11.4-16.0) gm/dL Hct (34.0-46.0) % MCHC (31.0-37.0) g/dL Neutrophils # (1.3-7.7) k/uL Lymphocytes # (1.0-4.8) k/uL Monocytes # (0-1.0) k/uL Sodium (137-145) mmol/L Carbon Dioxide (22-30) mmol/L BUN (7-17) mg/dL Creatinine (0.52-1.04) mg/dL Glucose (74-99) mg/dL POC Glucose (mg/dL) 143 H 142 H 133 H (70-110) mg/dL Iron (50-170) UG/DL TIBC (228-460) UG/DL % Saturation (12.00-45.00) Transferrin (204.0-354.0) mg/dL AST (14-36) U/L Alkaline Phosphatase (38-126) U/L Total Protein (6.3-8.2) g/dL Albumin (3.5-5.0) g/dL 02/28/24 02/28/24 02/28/24 Range/Units 06:05 06:05 06:09 WBC 12.4 H (3.8-10.6) k/uL RBC 3.35 L (3.80-5.40) m/uL Hgb 10.2 L (11.4-16.0) gm/dL Hct 32.2 L (34.0-46.0) % MCHC (31.0-37.0) g/dL Neutrophils # 9.7 H (1.3-7.7) k/uL Lymphocytes # (1.0-4.8) k/uL Monocytes # 1.3 H (0-1.0) k/uL Sodium 135 L (137-145) mmol/L Carbon Dioxide 20 L (22-30) mmol/L BUN 62 H (7-17) mg/dL Creatinine 3.07 H (0.52-1.04) mg/dL Glucose 118 H (74-99) mg/dL POC Glucose (mg/dL) 125 H (70-110) mg/dL Iron (50-170) UG/DL TIBC (228-460) UG/DL % Saturation (12.00-45.00) Transferrin (204.0-354.0) mg/dL AST 48 H (14-36) U/L Alkaline Phosphatase 180 H (38-126) U/L Total Protein 5.7 L (6.3-8.2) g/dL Albumin 2.8 L (3.5-5.0) g/dL 02/28/24 02/28/24 Range/Units 06:48 08:01 WBC (3.8-10.6) k/uL RBC (3.80-5.40) m/uL Hgb (11.4-16.0) gm/dL Hct (34.0-46.0) % MCHC (31.0-37.0) g/dL Neutrophils # (1.3-7.7) k/uL Lymphocytes # (1.0-4.8) k/uL Monocytes # (0-1.0) k/uL Sodium (137-145) mmol/L Carbon Dioxide (22-30) mmol/L BUN (7-17) mg/dL Creatinine (0.52-1.04) mg/dL Glucose (74-99) mg/dL POC Glucose (mg/dL) 118 H 129 H (70-110) mg/dL Iron (50-170) UG/DL TIBC (228-460) UG/DL % Saturation (12.00-45.00) Transferrin (204.0-354.0) mg/dL AST (14-36) U/L Alkaline Phosphatase (38-126) U/L Total Protein (6.3-8.2) g/dL Albumin (3.5-5.0) g/dL
[2024-02-29 05:44] LABS: Basophils % (A) 0 %; Eosinophils # (A) 0.1 k/uL (0-0.7); Eosinophils % (A) 1 %; HCT 29.2 % (34.0-46.0); HGB 9.2 gm/dL (11.4-16.0); Hypochromasia Slight; Lymphocytes # (A) 1.1 k/uL (1.0-4.8); Lymphocytes % (A) 11 %; MCHC 31.5 g/dL (31.0-37.0); MCV 95.2 fL (80.0-100.0); Mean Platelet Volume 8.5; Monocytes # (A) 0.6 k/uL (0-1.0); Monocytes % (A) 6 %; Neutrophils # (A) 8.1 k/uL (1.3-7.7); Neutrophils % (A) 81 %; Platelet Count 284 k/uL (150-450); RBC 3.07 m/uL (3.80-5.40); RDW 14.8 % (11.5-15.5); WBC 9.9 k/uL (3.8-10.6)
[2024-02-29 06:04] LABS: ALT 7 U/L (4-34); AST 45 U/L (14-36); African American GFR (CKD) 15 (>60 ml/min/1.73 sqM); Albumin 2.8 g/dL (3.5-5.0); Alkaline Phosphatase 185 U/L (38-126); Anion Gap 9 mmol/L; Blood Urea Nitrogen 66 mg/dL (7-17); Calcium 8.6 mg/dL (8.4-10.2); Carbon Dioxide 18 mmol/L (22-30); Chloride 104 mmol/L (98-107); Glucose 89 mg/dL (74-99); Non-African American GFR(CKD) 13 (>60 ml/min/1.73 sqM); Potassium 5.1 mmol/L (3.5-5.1); Sodium 131 mmol/L (137-145); Total Bilirubin 0.3 mg/dL (0.2-1.3); Total Protein 5.3 g/dL (6.3-8.2)
[2024-02-29 06:33] LABS: Glucose,Whole Blood 89 mg/dL (70-110)
--- NOTE | 2024-02-29 07:31 | P.PN ---
Subjective Progress Note Date: 02/29/24 Principal diagnosis: CAD status post CABG The patient is a 58-year-old female patient with a past medical history significant for coronary artery disease status post CABG x 4 as well as hypertension and dyslipidemia and chronic kidney disease and ischemic cardiomyopathy. This is postoperation day #4 February 29, 2024 The patient was seen this morning. Her pressure remains marginal and currently she is on dopamine for renal perfusion. Her kidney function is worse. She has been maintaining normal sinus mechanism. The chest x-ray looks better than yesterday yesterday it was wet and the Lasix was given with improvement in that. She is on dual antiplatelet therapy along with a statin along with beta-alex and she is on hydralazine because the SVR is elevated. I would suggest DC dopamine and start the patient on dobutamine or Primacor to increase contractility and decrease afterload. The examination is remarkable for regular rhythm with a distant heart sounds and diminished breathing sounds bilaterally Assessment CAD status post CABG Ischemic cardiomyopathy Chronic kidney disease Marginally low blood pressure Multiple comorbid conditions Plan Continue dual antiplatelet therapy Continue statin Continue monitor the hemoglobin and kidney function I would suggest DC dopamine and start the patient on dobutamine or Primacor to increase contractility and decrease afterload Follow-up with the patient Objective - Vital Signs Vital signs: Vital Signs Temp 97.5 F L 02/29/24 04:00 Pulse 82 02/29/24 07:00 Resp 14 02/29/24 07:00 BP 98/61 02/29/24 07:00 Pulse Ox 96 02/29/24 07:00 FiO2 40 02/26/24 16:39 Intake & Output 02/28/24 02/29/24 02/29/24 18:59 06:59 18:59 Intake Total 536.64 862 56 Output Total 490 485 125 Balance 46.64 377 -69 Weight 79.9 kg Intake: IV 486 862 56 .9NS Cardiac Output 90 180 20 .9NS Pressure Bag 66 72 6 Albumin Human 5% 250 ml 250 In Empty Bag 1 bag @ 250 mls/hr IVPB Q1HR PRN Rx#: [id number] Lactated Ringers 1,000 ml 330 360 30 @ 20 mls/hr IV .Q24H [facility] Rx#:[id number] Intake, IV Titration 50.64 Amount Albumin Human 25% 50 ml 50 In Empty Bag 1 bag @ 50 mls/hr IVPB ONCE STA Rx#: [id number] Insulin Regular 100 unit 0.64 In Sodium Chloride 0.9% 100 ml @ Per Protocol IV .Q0M [facility] Rx#:[id number] Output: Chest Tube Drainage 340 340 110 Left Pleural Chest Tube 200 195 55 Right Pleural Chest Tube 140 145 55 Urine 150 145 15 Other: Voiding Method Indwelling Catheter Indwelling Catheter ABP, PAP, CO, CI - Last Documented Arterial Blood Pressure 139/47 Pulmonary Artery Pressure 28/10 Cardiac Output 3.5 Cardiac Index 1.9 - Labs CBC & Chem 7: 02/29/24 05:15 02/29/24 05:15 Labs: Abnormal Lab Results - Last 24 Hours (Table) 02/28/24 02/28/24 02/28/24 Range/Units 06:05 06:05 08:01 WBC 12.4 H (3.8-10.6) k/uL RBC 3.35 L (3.80-5.40) m/uL Hgb 10.2 L (11.4-16.0) gm/dL Hct 32.2 L (34.0-46.0) % Neutrophils # 9.7 H (1.3-7.7) k/uL Monocytes # 1.3 H (0-1.0) k/uL Sodium (137-145) mmol/L Carbon Dioxide (22-30) mmol/L BUN (7-17) mg/dL Creatinine (0.52-1.04) mg/dL POC Glucose (mg/dL) 129 H (70-110) mg/dL AST (14-36) U/L Alkaline Phosphatase (38-126) U/L Total Protein (6.3-8.2) g/dL Albumin (3.5-5.0) g/dL Lipase 19 L (23-300) U/L 02/28/24 02/28/24 02/28/24 Range/Units 10:13 11:22 16:04 WBC (3.8-10.6) k/uL RBC (3.80-5.40) m/uL Hgb (11.4-16.0) gm/dL Hct (34.0-46.0) % Neutrophils # (1.3-7.7) k/uL Monocytes # (0-1.0) k/uL Sodium (137-145) mmol/L Carbon Dioxide (22-30) mmol/L BUN (7-17) mg/dL Creatinine (0.52-1.04) mg/dL POC Glucose (mg/dL) 141 H 135 H 231 H (70-110) mg/dL AST (14-36) U/L Alkaline Phosphatase (38-126) U/L Total Protein (6.3-8.2) g/dL Albumin (3.5-5.0) g/dL Lipase (23-300) U/L 02/28/24 02/29/24 02/29/24 Range/Units 21:07 05:15 05:15 WBC (3.8-10.6) k/uL RBC 3.07 L (3.80-5.40) m/uL Hgb 9.2 L (11.4-16.0) gm/dL Hct 29.2 L (34.0-46.0) % Neutrophils # 8.1 H (1.3-7.7) k/uL Monocytes # (0-1.0) k/uL Sodium 131 L (137-145) mmol/L Carbon Dioxide 18 L (22-30) mmol/L BUN 66 H (7-17) mg/dL Creatinine 3.66 H (0.52-1.04) mg/dL POC Glucose (mg/dL) 177 H (70-110) mg/dL AST 45 H (14-36) U/L Alkaline Phosphatase 185 H (38-126) U/L Total Protein 5.3 L (6.3-8.2) g/dL Albumin 2.8 L (3.5-5.0) g/dL Lipase (23-300) U/L
[2024-02-29] MEDS: SODIUM CHLORIDE 0.9% 1,000 ML IV SCH (07:53)
[2024-02-29] MEDS: ALBUMIN HUMAN 5% 250 ML in EMPTY BAG 1 BAG IVPB STA ×3 (07:58→16:57)
--- NOTE | 2024-02-29 09:20 | XR ---
EXAMINATION TYPE: XR chest 1V portable DATE OF EXAM: 02/29/2024 5:43 AM CLINICAL INDICATION:Female, 58 years old with history of Postop CABG; [facility] COMPARISON: Chest radiograph from one day prior. TECHNIQUE: XR chest 1V portable Frontal view of the chest. FINDINGS: Lungs/Pleura: No appreciable pneumothorax on today's exam. There is no evidence of pleural effusion, focal consolidation, Pulmonary vascularity: Unremarkable. Heart/mediastinum: Cardiomediastinal silhouette is enlarged and stable. Left atrial appendage occlusi on device is present. Recorder is present. Musculoskeletal: No acute osseous pathology. Other findings: None Lines/Tubes: There is a [place] catheter with tip projecting over the spine. Bilateral thoracotomy tubes are present. IMPRESSION: 1. No appreciable pneumothorax on today's exam 2. Post surgical changes with pulmonary vascular congestion.
[2024-02-29] MEDS: SODIUM BICARB 8.4% 50 ML SYR (1 MEQ/ML) IV STA (09:27)
--- NOTE | 2024-02-29 09:38 | P.PN ---
Subjective Progress Note Date: 02/29/24 Principal diagnosis: Triple-vessel coronary artery disease, non-STEMI this admission, acute systolic heart failure with reduced ejection fraction 35%, new onset ischemic cardiomyop athy, mild mitral valve regurgitation on [place], acute on chronic kidney disease, acute anemia. History of hypertension, hyperlipidemia, hypothyroid, diabetes mellitus, CVA, hepatitis as a child, CKD stage IV, previous tobacco dependence with recent cessation, severe COPD, previous methamphetamine use with recent cessation, family history of coronary artery disease. POD #3 Off-pump CABG x 4 with sequential left internal mammary artery to left anterior descending coronary artery and diagonal coronary artery, reverse saphenous vein graft's to the posterior descending coronary artery and second o btuse marginal coronary artery, closure of the left atrial appendage with 35mm AtriCure clip, placement of percutaneous right femoral intra-aortic balloon pump, transesophageal echocardiogram performed by anesthesia. Postoperative acute blood loss anemia, expected secondary to hemodilution and preoperative anemia. Patient was seen and examined in follow-up today February 29, 2024 at her bedside in the intensive care unit. She is currently sitting up to the bedside chair, is awake, alert, oriented x 3 and is in no acute apparent distress. Denies any complaints of pain or shortness of breath at this time, and states her nausea has improved but still having an occasional episode of nausea. She denies any emesis. Oxygen saturations are 98% on 3 L nasal cannula and she is achieving 750 mL on her incentive spirometry with much encouragement. Bedside telemetry is showing normal sinus rhythm heart rate 83 bpm. She remains on amiodarone for atrial fibrillation prophylaxis, no atrial fibrillation has been reported. Right IJ cordis and Fortescue-Jamal catheter remains in place with current hemody namics showing a cardiac output of 3.5, cardiac index 1.9, PA pressures 28/10, CVP 10 mmHg and SVR 1050. Left and right pleural chest tubes remain in place to low continuous wall suction -20 cm H2O. No air leak is present. Left pleural chest tube draining thin serosanguineous drainage with 100 mL output in the last 8 hours and 420 mL output in the last 24 hours. Right pleural chest tube draini ng thin serosanguineous drainage with 70 mL output the last 8 hours and 310 mL output in the last 24 hours. She was tolerating a full liquid diet. Dopamine remains infusing at 3 mcg/kg/min renal dosing. Throughout the night she did receive 1 dose of albumin 25% 50 mL IV piggyback and 1 dose of 5% 500 mL of albumin for low urine output and some hypotension. Currently her blood pressure is 104/59 with a MAP of 72. Laboratory and chest x-ray results reviewed. Objective - Vital Signs Vital signs: Vital Signs Temp 97.5 F L 02/29/24 04:00 Pulse 82 02/29/24 07:00 Resp 14 02/29/24 07:00 BP 98/61 02/29/24 07:00 Pulse Ox 96 02/29/24 07:00 FiO2 40 02/26/24 16:39 Intake & Output 02/28/24 02/29/24 02/29/24 18:59 06:59 18:59 Intake Total 536.64 862 56 Output Total 490 485 125 Balance 46.64 377 -69 Weight 79.9 kg Intake: IV 486 862 56 .9NS Cardiac Output 90 180 20 .9NS Pressure Bag 66 72 6 Albumin Human 5% 250 ml 250 In Empty Bag 1 bag @ 250 mls/hr IVPB Q1HR PRN Rx#: [id number] Lactated Ringers 1,000 ml 330 360 30 @ 20 mls/hr IV .Q24H LYNDSAY Rx#:[id number] Intake, IV Titration 50.64 Amount Albumin Human 25% 50 ml 50 In Empty Bag 1 bag @ 50 mls/hr IVPB ONCE STA Rx#: [id number] Insulin Regular 100 unit 0.64 In Sodium Chloride 0.9% 100 ml @ Per Protocol IV .Q0M LYNDSAY Rx#:[id number] Output: Chest Tube Drainage 340 340 110 Left Pleural Chest Tube 200 195 55 Right Pleural Chest Tube 140 145 55 Urine 150 145 15 Other: Voiding Method Indwelling Catheter Indwelling Catheter ABP, PAP, CO, CI - Last Documented Arterial Blood Pressure 139/47 Pulmonary Artery Pressure 28/10 Cardiac Output 3.5 Cardiac Index 1.9 - Exam CONSTITUTIONAL: Sitting up to the bedside chair in the intensive care unit, appears comfortable, cooperative, no apparent acute distress. HEENT: Neck is supple, no JVD, no lymphadenopathy. Right IJ Cordis and Fortescue- Jamal catheter in place and functioning. RESPIRATORY: Lungs sounds essentially clear throughout, diminished to her bilateral bases. Respirations are symmetrical and nonlabored. Currently on 3 L nasal cannula with oxygen saturations 98%. Able to achieve 750 mL on her incentive spirometry. Strong cough. CARDIOVASCULAR: Regular rhythm and rate. S1 and S2 present, negative for S3, gallop or murmur. Sternum is stable. Palpable peripheral pulses bilaterally. No calf pain or tenderness noted. Heart hugger in place with patient demonstrating appropriate use. Knee-high CRISTOBAL hose and sequential compression devices in place to his bilateral lower extremities. GASTROINTESTINAL: Abdomen soft, nontender, nondistended. Active bowel sounds present 4 quadrants. Denies passing flatus. No guarding or rigidity. Tolerating full liquid diet. GENITOURINARY: Saldaña present draining clear, yellow urine. Marginal urine output in the last 8 hours with 85 mL. INTEGUMENTARY: Skin is warm and dry with no evidence of clubbing or cyanosis. Midline sternal incision clean dry and well approximated, covered with dry intact dressing. Left lower extremity EVH sites well approximated without redness or drainage. NEUROLOGIC: Cranial nerves II through XII intact. No focal deficits. MUSKULOSKELETAL: Able to move all extremities, strength equal bilaterally, generalized weakness. PSYCHIATRIC: Alert and oriented to person place and time, appropriate affect, intact judgment and insight. INVASIVE LINES AND TUBES: Left/right pleural chest tubes present and connected to low continuous wall suction, no air leaks present. Right internal jugular Fortescue/Cordis, line present. Left pleural chest tube drained 100 mL of thin serosanguineous drainage in the last 8 hours and 420 mL in the last 24 hours. Right pleural chest tube drained 70 mL of thin serosanguineous drainage in the last 8 hours and 310 mL in the last 24 hours. Last CO 3.5, CI 1.9, PA 28/10 and CVP 10 mmHg, and SVR to 1050. - Allied health notes Allied health notes reviewed: nursing - Labs CBC & Chem 7: 02/29/24 05:15 02/29/24 05:15 Labs: Abnormal Lab Results - Last 24 Hours (Table) 02/28/24 02/28/24 02/28/24 Range/Units 06:05 06:05 10:13 RBC (3.80-5.40) m/uL Hgb (11.4-16.0) gm/dL Hct (34.0-46.0) % Neutrophils # 9.7 H (1.3-7.7) k/uL Monocytes # 1.3 H (0-1.0) k/uL Sodium (137-145) mmol/L Carbon Dioxide (22-30) mmol/L BUN (7-17) mg/dL Creatinine (0.52-1.04) mg/dL POC Glucose (mg/dL) 141 H (70-110) mg/dL AST (14-36) U/L Alkaline Phosphatase (38-126) U/L Total Protein (6.3-8.2) g/dL Albumin (3.5-5.0) g/dL Lipase 19 L (23-300) U/L 02/28/24 02/28/24 02/28/24 Range/Units 11:22 16:04 21:07 RBC (3.80-5.40) m/uL Hgb (11.4-16.0) gm/dL Hct (34.0-46.0) % Neutrophils # (1.3-7.7) k/uL Monocytes # (0-1.0) k/uL Sodium (137-145) mmol/L Carbon Dioxide (22-30) mmol/L BUN (7-17) mg/dL Creatinine (0.52-1.04) mg/dL POC Glucose (mg/dL) 135 H 231 H 177 H (70-110) mg/dL AST (14-36) U/L Alkaline Phosphatase (38-126) U/L Total Protein (6.3-8.2) g/dL Albumin (3.5-5.0) g/dL Lipase (23-300) U/L 02/29/24 02/29/24 Range/Units 05:15 05:15 RBC 3.07 L (3.80-5.40) m/uL Hgb 9.2 L (11.4-16.0) gm/dL Hct 29.2 L (34.0-46.0) % Neutrophils # 8.1 H (1.3-7.7) k/uL Monocytes # (0-1.0) k/uL Sodium 131 L (137-145) mmol/L Carbon Dioxide 18 L (22-30) mmol/L BUN 66 H (7-17) mg/dL Creatinine 3.66 H (0.52-1.04) mg/dL POC Glucose (mg/dL) (70-110) mg/dL AST 45 H (14-36) U/L Alkaline Phosphatase 185 H (38-126) U/L Total Protein 5.3 L (6.3-8.2) g/dL Albumin 2.8 L (3.5-5.0) g/dL Lipase (23-300) U/L - Imaging and Cardiology Chest x-ray: report reviewed, image reviewed Assessment and Plan Assessment: Triple-vessel coronary artery disease, non-STEMI this admission, status post four-vessel off-pump coronary artery bypass grafting surgery Acute systolic heart failure with reduced ejection fraction, 20-25%, 35% on [place] New onset ischemic cardiomyopathy Moderate to severe mitral regurgitation on transthoracic echocardiogram, mild mitral regurgitation on [place] Acute on chronic kidney disease Acute anemia Hypertension Hyperlipidemia, treated, cholesterol 150, LDL 72.8 Hypothyroid, TSH 1.73 Diabetes mellitus, hemoglobin A1c 7.1% CVA Hepatitis as a child Chronic kidney disease Previous tobacco dependence with recent cessation Severe COPD, preoperative FEV1 27% of predicted Previous methamphetamine use with recent cessation Family history of coronary artery disease with sister having multiple stents Postoperative acute blood loss anemia, expected given hemodilution and preoperative anemia Plan: Continue to maximize medical therapy with aspirin, statin, Plavix, beta-alex. Will increase beta-alex as tolerated. Continue hydralazine for afterload reduction, with hold parameters. Continue dopamine drip, decrease dopamine drip to 1.5 mcg/kg/min. Continue oral amiodarone for atrial fibrillation prophylaxis, patient has not had any atrial fibrillation at this point, bedside telemetry showing normal sinus rhythm. Wean O2 as tolerated. Encourage incentive spirometry use 10 times every hour while awake. Bronchodilators per pulmonology. Increase activity, ambulate as tolerated. PT/OT/cardiac rehab following. Will monitor daily labs and x-rays. Electrolyte replacement per protocol. GI/DVT prophylaxis Pain control per current medication regimen. Avoid Toradol due to kidney failure. Insulin management per internal medicine. Continue pleural chest tubes for another 24 hours and monitor output. Continue Saldaña catheter for another 24 hours, continue to record strict accurate intake and output. Keep Fortescue-Jamal catheter in place with hemodynamic monitoring. Albumin 5% 250 mL IV piggyback x 1 now. Start 0.9% normal saline at 80 mL/h. Daily weights. More recommendations to follow based on patient's clinical course. Time with Patient: Greater than 30
[2024-02-29 09:51] LABS: ABG HCO3 26 mmol/L (21-25); ABG Oxygen Saturation 42.6 % (94-97); ABG PCO2 39 mmHg (35-45); ABG PH 7.42 (7.35-7.45); Allen Test Performed? Yes
[2024-02-29 09:57] LABS: ABG PO2 26 mmHg (83-108)
--- NOTE | 2024-02-29 11:46 | P.PN ---
Subjective Patient is seen in follow-up for acute kidney injury. Renal function worsening. Urine output about 10 cc an hour. Underwent CABG February 26, 2024. Remains on dopamine and amiodarone drip. Blood pressure low in the systolic 80s. Vital signs are stable. General: No acute distress. HEENT: Head exam is unremarkable. On nasal cannula. LUNGS: Chest tubes noted. HEART: Rate and Rhythm are regular. ABDOMEN: Nontender. EXTREMITITES: No edema. Objective - Vital Signs Vital signs: Vital Signs Temp 99.1 F 02/29/24 11:00 Pulse 81 02/29/24 11:00 Resp 18 02/29/24 11:00 BP 97/61 02/29/24 11:00 Pulse Ox 96 02/29/24 11:00 FiO2 40 02/26/24 16:39 Intake & Output 02/28/24 02/29/24 02/29/24 18:59 06:59 18:59 Intake Total 536.64 862 1122 Output Total 490 485 305 Balance 46.64 377 817 Weight 79.9 kg Intake: IV 486 862 650 .9NS Cardiac Output 90 180 60 .9NS Pressure Bag 66 72 30 Albumin Human 5% 250 ml 250 500 In Empty Bag 1 bag @ 250 mls/hr IVPB Q1HR PRN Rx#: [id number] Lactated Ringers 1,000 ml 330 360 60 @ 20 mls/hr IV .Q24H LYNDSAY Rx#:[id number] Intake, IV Titration 50.64 352 Amount Albumin Human 25% 50 ml 50 In Empty Bag 1 bag @ 50 mls/hr IVPB ONCE STA Rx#: [id number] Dextrose/Water 1 250ml. 12 bag @ 3 MCG/KG/MIN 4.052 mls/hr IV .Q24H LYNDSAY with DOPamine DRIP 800 mg Rx#: [id number] Insulin Regular 100 unit 0.64 In Sodium Chloride 0.9% 100 ml @ Per Protocol IV .Q0M LYNDSAY Rx#:[id number] Sodium Chloride 0.9% 1, 240 000 ml @ 80 mls/hr IV . [id number] LYNDSAY Rx#:[id number] Sodium Ferric Gluconat- 100 Sucrose 125 mg In Sodium Chloride 0.9% 100 ml @ 100 mls/hr IVPB DAILY LYNDSAY Rx#:[id number] Oral 120 Output: Chest Tube Drainage 340 340 200 Left Pleural Chest Tube 200 195 105 Right Pleural Chest Tube 140 145 95 Urine 150 145 55 Emesis 50 Other: Voiding Method Indwelling Catheter Indwelling Catheter ABP, PAP, CO, CI - Last Documented Arterial Blood Pressure 139/47 Pulmonary Artery Pressure 27/11 Cardiac Output 3.4 Cardiac Index 1.8 - Labs CBC & Chem 7: 02/29/24 05:15 02/29/24 05:15 Labs: Abnormal Lab Results - Last 24 Hours (Table) 02/28/24 02/28/24 02/29/24 Range/Units 16:04 21:07 05:15 RBC 3.07 L (3.80-5.40) m/uL Hgb 9.2 L (11.4-16.0) gm/dL Hct 29.2 L (34.0-46.0) % Neutrophils # 8.1 H (1.3-7.7) k/uL ABG pO2 (83-108) mmHg ABG HCO3 (21-25) mmol/L ABG O2 Saturation (94-97) % Sodium (137-145) mmol/L Carbon Dioxide (22-30) mmol/L BUN (7-17) mg/dL Creatinine (0.52-1.04) mg/dL POC Glucose (mg/dL) 231 H 177 H (70-110) mg/dL AST (14-36) U/L Alkaline Phosphatase (38-126) U/L Total Protein (6.3-8.2) g/dL Albumin (3.5-5.0) g/dL 02/29/24 02/29/24 Range/Units 05:15 09:47 RBC (3.80-5.40) m/uL Hgb (11.4-16.0) gm/dL Hct (34.0-46.0) % Neutrophils # (1.3-7.7) k/uL ABG pO2 26 L* (83-108) mmHg ABG HCO3 26 H (21-25) mmol/L ABG O2 Saturation 42.6 L (94-97) % Sodium 131 L (137-145) mmol/L Carbon Dioxide 18 L (22-30) mmol/L BUN 66 H (7-17) mg/dL Creatinine 3.66 H (0.52-1.04) mg/dL POC Glucose (mg/dL) (70-110) mg/dL AST 45 H (14-36) U/L Alkaline Phosphatase 185 H (38-126) U/L Total Protein 5.3 L (6.3-8.2) g/dL Albumin 2.8 L (3.5-5.0) g/dL Assessment and Plan Plan: Assessment: 1. Acute kidney injury secondary to ATN secondary to cardiorenal syndrome. Also from hypotension. Renal function worse. Creatinine 3.66 today. Creatinine as low as 0.98 dated March 01, 2022. No hydronephrosis noted on kidney ultrasound. Serologies negative. 2. Acute on chronic systolic CHF with ejection fraction of 20 to 25% with moderate to severe mitral regurgitation and mild pulmonary hypertension. 3. Volume overload. Improved with diuresis. 4. Anemia. Iron deficiency noted. Seen by GI. Status post blood transfusion this admission. Also received IV DDAVP. 5. Metabolic acidosis secondary to acute kidney injury and IV fluids. 6. Hyponatremia secondary to acute kidney injury. 7. Urinary retention status post Saldaña catheter placement. Plan: Currently on IV amiodarone and dopamine. Also receiving IV albumin 25 g total today. Started on IV fluids by cardiothoracic surgery. Avoid nephrotoxins. Continue to monitor renal function and urine output. Maintain IV iron. May need vasopressor support. Start midodrine 5 mg 3 times daily if okay with CTS. Case discussed with CTS team.
[2024-02-29 12:02] LABS: Glucose,Whole Blood 169 mg/dL (70-110)
--- NOTE | 2024-02-29 12:46 | P.PN ---
Subjective Progress Note Date: 02/29/24 Patient 02/26/2024, the patient is being seen immediately after she arrived to the intensive care unit. This patient has been in the hospital for almost 2 weeks. She sustained an acute non-ST segment elevation myocardial infarction. She has severe ischemic cardiomyopathy with an ejection fraction of 20 to 25% along with moderate to severe mitral regurgitation. The patient was optimized and subsequently the patient was taken to the operating room for cardiac revascularization surgery. The patient is known to have COPD, diabetes mellitus type 1, hypertension hyperlipidemia previous history of CVA and hypothyroidism along with fibromyalgia. She is a chronic smoker who carries [id number] smoki ng history. The patient underwent off-pump coronary bypass surgery x 4 with sequential RUSSO to LAD and diagonal and SVG to PDA and second obtuse marginal and closure of the left atrial appendage. An intra-aortic balloon pump was also inserted intraoperatively. At this point in time, the patient is intubated and on mechanical ventilator. The patient was on assist-control mode of mechanical ventilation at the rate of 14, tidal volume of 400 with an FiO2 of 100% with a PEEP of 5. The patient had an initial blood gas that showed a pH of 7.34 with pCO2 of 46 and pO2 of 265. Based on that, the FiO2 was gradually weaned off and the respiratory rate was increased up to 22. Subsequently, the patient remained hemodynamically stable. In fact, her current cardiac output is at 4.8 with an index of 2.6 while being augmented with a one-to-one intra-aortic balloon pump support with a mean augmented arterial pressure of 83-85. She has been on nitroglycerin drip which is running at 5 mg/min and she is also on dopamine at 3 mcg/kg/min. The patient is producing adequate amount of cardiac output. Cardiac rhythm is sinus and the patient is currently on amiodarone. The chest x-ray that was done in the ICU shows adequate expansion of both lungs. The patient has a right IJ [place] catheter in place and ET tube is around 2 cm above the anthony and the patient has a right pleural left pleural and mediastinal chest tube. Output from the chest tubes have been essentially low in the order of 100-150 cc from the chest tube just arrived from the operating room. Based on her stable condition, the patient was taken gradually off the propofol and the patient is currently undergoing a spontaneous breathing trial with a pressure support of 5 and a PEEP of 5. The weaning parameters were karie quate. The blood work today postop showed a sodium level of 136 with a potassium level of 4.2, BUN is 57 with a creatinine of 2.6 and the patient has a white cell count of 4.9 with a hemoglobin of 9 and a platelet count of 252. She is arousable and she is following commands and moving all 4 extremities without any limitation. She is currently afebrile. 02/27/2024, patient is being seen for a follow-up. Noted the patient is postop day #1 following a coronary artery bypass surgery. The patient underwent an off-pump four-vessel bypass surgery. She required intra-aortic balloon pump support postoperatively. The patient is currently doing well. She is extubated on 2 L of oxygen by nasal cannula. Intra-aortic balloon pump was removed today. [place] catheter still in place. PA pressures of 37/60. CVP is at 13. Cardiac output is at 5.1 with an index of 2.7. The left lower chest tube has drained 460 cc over the past 24 hours, right lower chest tube and drain 240 cc in the mediastinum has drained 200 cc. The patient is still on nitroglycerin drip at low-dose. Remains on insulin drip at 1.5 units an hour. Remains on a amiodarone maintenance of 0.5 mg/min and the patient is on a normal sinus rhythm. Dopamine is running at 2 mcg/kg/min. No specific complaints. Resting comfortably in bed. Chest x-ray shows no evidence of any pneumothorax. Lungs are well-expanded and the tubes are in place. WBC count of 8.1 with a hemoglobin 9.4 and a platelet count of 328. Sodium is at 134, BUN is 57 with a creatinine of 2.6 and a serum bicarb is at 21. Blood sugars are under adequate control at this point in time while being on insulin drip. Awake and alert and communicating. On 02/28/2024, I am seeing the patient for a follow-up. The patient is postop day #2. Awake and alert and sitting up in the chair. Mediastinal chest tube has been removed. Right lower chest tube and drains are out 4 the intra-aortic balloon pump has been removed. Exit site is clean. The patient remains on dopamine 70 cc over the past 24 hours and a left pleural chest tube with drain 870 cc over the past 24 hours. The patient is currently on 2 L of O2 nasal cannula. At 2 mcg/kg/min. The patient has been switched to oral amiodarone 4 mg p.o. twice a day and the patient is also on metoprolol 12.5 mg twice a day and the patient on aspirin and Plavix. Insulin drip is still running at 1 unit an hour. Using incentive spirometer, pulling approximately 500 cc. Blood work from today shows WBC count of 12.4 with a hemoglobin 10.2, BUN 62 with a creatinine of 3.07 and a sodium levels at 135 with a bicarb level is at 20. Chest x-ray shows essentially postsurgical changes. Mediastinal chest tube has been removed. The right and the pleural chest tubes are still in place. Cannot rule out very tiny apical pneumothoraces. There is some mild pulm vessel congestion. Otherwise, no other significant events overnight and the patient is alert and awake and communicating. 02/29/2024, the patient is being seen in cardiac follow-up. The patient is postop day #3 post four-vessel coronary bypass surgery. The surgical report has been removed. This morning, the patient is sitting up on a chair. Nevertheless, there has been some hemodynamic changes and the patient became hypotensive overnight. The patient was initially given 25% of albumin, 50 cc and subsequently the patient was given 5% albumin and total of 500 cc and currently she is receiving another dose of albumin 250 cc of 5% albumin. Dopamine was dropped to 1.5 mcg/kg/min which currently appears to have lower blood pressure and his systolic blood pressure currently is in the mid 80s. Cardiac output and index 3.0 and 1.6 respectively. Pulmonary artery pressures of 34/10. The mixed venous saturation is low at 40. The patient has a right pleural and left lower chest tube. Output from the right ear to 85 cc an hour. Present for 395 L over the past 24 hours. Chest x-ray shows increased pulm vascular markings. Atelectatic change in lung bases. Chest tubes are in good location. No evidence of any air leak in the Pleur-evac. The patient remains on oxygen and 3 L/min nasal cannula. The patient is also on normal citrate of 80 cc an hour. The blood work from today shows a BUN of 66 with a creatinine of 3.6 and the patient has developed interval worsening of renal function. Sodium level is at 131 with a potassium level of 5.1. LFTs are normal. The risk of 9.9 with a hemoglobin of 9.2 and a platelet count of 284. She is awake and alert and communicating. She is afebrile for now. As mentioned, she remains on 3 L of O2 nasal cannula. Objective - Vital Signs Vital signs: Vital Signs Temp 99.1 F 02/29/24 11:00 Pulse 81 02/29/24 11:00 Resp 18 02/29/24 11:00 BP 97/61 02/29/24 11:00 Pulse Ox 96 02/29/24 11:00 FiO2 40 02/26/24 16:39 Intake & Output 02/28/24 02/29/24 02/29/24 18:59 06:59 18:59 Intake Total 536.64 862 1122 Output Total 490 485 305 Balance 46.64 377 817 Weight 79.9 kg Intake: IV 486 862 650 .9NS Cardiac Output 90 180 60 .9NS Pressure Bag 66 72 30 Albumin Human 5% 250 ml 250 500 In Empty Bag 1 bag @ 250 mls/hr IVPB Q1HR PRN Rx#: [id number] Lactated Ringers 1,000 ml 330 360 60 @ 20 mls/hr IV .Q24H LYNDSAY Rx#:[id number] Intake, IV Titration 50.64 352 Amount Albumin Human 25% 50 ml 50 In Empty Bag 1 bag @ 50 mls/hr IVPB ONCE STA Rx#: [id number] Dextrose/Water 1 250ml. 12 bag @ 3 MCG/KG/MIN 4.052 mls/hr IV .Q24H LYNDSAY with DOPamine DRIP 800 mg Rx#: [id number] Insulin Regular 100 unit 0.64 In Sodium Chloride 0.9% 100 ml @ Per Protocol IV .Q0M LYNDSAY Rx#:[id number] Sodium Chloride 0.9% 1, 240 000 ml @ 80 mls/hr IV . [id number] LYNDSAY Rx#:[id number] Sodium Ferric Gluconat- 100 Sucrose 125 mg In Sodium Chloride 0.9% 100 ml @ 100 mls/hr IVPB DAILY LYNDSAY Rx#:[id number] Oral 120 Output: Chest Tube Drainage 340 340 200 Left Pleural Chest Tube 200 195 105 Right Pleural Chest Tube 140 145 95 Urine 150 145 55 Emesis 50 Other: Voiding Method Indwelling Catheter Indwelling Catheter ABP, PAP, CO, CI - Last Documented Arterial Blood Pressure 139/47 Pulmonary Artery Pressure 27/11 Cardiac Output 3.4 Cardiac Index 1.8 - Exam GENERAL EXAM: Alert, 58-year-old white female, resting comfortably in bed, the patient is awake and oriented x 3 on 2 L of oxygen by nasal cannula, extubated HEAD: Normocephalic and atraumatic EYES: Normal reaction of pupils, equal size. NOSE: Clear with pink turbinates. THROAT: No erythema or exudates. NECK: No masses, no JVD. CHEST: No chest wall deformity. LUNGS: The patient has a right lower and left lower chest tube. Thoracotomy scar is dry clean and intact. Breath sounds equal and symmetrical bilaterally. CVS: S1 and S2 normal with no audible murmur, regular rhythm. No extra heart s ounds ABDOMEN: No hepatosplenomegaly, active bowel sounds, no guarding or rigidity. SPINE: No scoliosis or deformity SKIN: No rashes CENTRAL NERVOUS SYSTEM: No focal deficits, tone is normal in all 4 extremities. EXTREMITIES: There is bilateral lower has equal and symmetrical pulses in the lower extremities bilaterally. The patient has amputation of the right great toe. Extremities are warm. - Labs CBC & Chem 7: 02/29/24 05:15 02/29/24 05:15 Labs: Abnormal Lab Results - Last 24 Hours (Table) 02/28/24 02/28/24 02/29/24 Range/Units 16:04 21:07 05:15 RBC 3.07 L (3.80-5.40) m/uL Hgb 9.2 L (11.4-16.0) gm/dL Hct 29.2 L (34.0-46.0) % Neutrophils # 8.1 H (1.3-7.7) k/uL ABG pO2 (83-108) mmHg ABG HCO3 (21-25) mmol/L ABG O2 Saturation (94-97) % Sodium (137-145) mmol/L Carbon Dioxide (22-30) mmol/L BUN (7-17) mg/dL Creatinine (0.52-1.04) mg/dL POC Glucose (mg/dL) 231 H 177 H (70-110) mg/dL AST (14-36) U/L Alkaline Phosphatase (38-126) U/L Total Protein (6.3-8.2) g/dL Albumin (3.5-5.0) g/dL 02/29/24 02/29/24 02/29/24 Range/Units 05:15 09:47 12:00 RBC (3.80-5.40) m/uL Hgb (11.4-16.0) gm/dL Hct (34.0-46.0) % Neutrophils # (1.3-7.7) k/uL ABG pO2 26 L* (83-108) mmHg ABG HCO3 26 H (21-25) mmol/L ABG O2 Saturation 42.6 L (94-97) % Sodium 131 L (137-145) mmol/L Carbon Dioxide 18 L (22-30) mmol/L BUN 66 H (7-17) mg/dL Creatinine 3.66 H (0.52-1.04) mg/dL POC Glucose (mg/dL) 169 H (70-110) mg/dL AST 45 H (14-36) U/L Alkaline Phosphatase 185 H (38-126) U/L Total Protein 5.3 L (6.3-8.2) g/dL Albumin 2.8 L (3.5-5.0) g/dL Assessment and Plan Assessment: Multivessel coronary artery disease and the patient is status post acute non-ST elevation [place], the patient underwent four-vessel bypass surgery off-pump which included sequential RUSSO to To the LAD and diagonal and SVG to PDA and second obtuse marginal branch and the patient is currently postop day day # 3 the intra-aortic balloon pump has been removed. The patient patient this morning has a lower cardiac index of 1.6. The patient is hypotensive. dopamine has been dropped down to 1.5 micrograms per kilogram per minute. The patient also developed some interval worsening renal function and she has an acute on top of chronic kidney disease. Her chest tubes are in place on the right than the left. Cardiac rhythm remained sinus. Acute hypoxic respiratory failure currently on 3 L of oxygen by nasal cannula Postthoracotomy, currently intubated on the mechanical ventilator. Mediastinal chest tube has been removed. The patient has a right pleural and left lower chest tubes in place. Output from the chest has not been noted. No evidence of any pneumothorax. Ischemic cardiomyopathy with an estimated left ventricular ejection fraction severely impaired at 20 to 25% as well as moderate to severe mitral valve regurgitation Normocytic normochromic anemia, Chronic kidney disease stage III with a component of acute kidney injury. Creatinine is up to 3.5 Chronic obstructive pulmonary disease, stable Diabetes mellitus type 1, had HbA1c at the time of admission was 7.1 History of hyperlipidemia History of hypertension History of CVA/TIA History of hypothyroidism History of fibromyalgia History of GERD Mildly elevated LFTs, hepatitis panel nonreactive Former tobacco smoker as of 55 days ago, before this 1/2 pack/day or approximately 15-year pack history' Previous history of methamphetamine use Plan: Oxygen at 3 L/min nasal cannula and encourage use of incentive spirometer. Right and left pleural chest tube In place, continue monitoring the output Intra-aortic aortic balloon pump has been removed Continue dopamine which is currently running at 1.5 mcg/kg/min. Recommend continuing volume resuscitation to increase her PA diastolic filling pressure. At same time, dopamine dose will be titrated to blood pressure and cardiac output. Meanwhile, the patient has been given a total of 750 cc of IV albumin and another to 50 cc being administered at this point. Continue aspirin and Plavix Continue oral amiodarone Patient will be given a total of 50 mEq of sodium bicarb, IV push Monitor electrolytes hold beta-blockers Keep the beta-blockers on hold Chest x-ray was noted [place] catheter to be kept in place Insulin drip has been discontinued and the patient is currently on Levemir insulin 10 units twice daily and this was also placed on hold as the patient's blood sugars have been essentially low this morning. She is only using sliding scale insulin coverage. Pain management Monitor renal function Will continue to follow and make further recommendations based on her progress. Evaluation was done more than 30 minutes. This is coordinated with the cardiothoracic team. Time with Patient: Greater than 30
[2024-02-29] MEDS: MIDODRINE 5 MG TAB PO SCH (13:19)
[2024-02-29 15:24] LABS: ABG Base Excess -2.3 mmol/L; ABG HCO3 23 mmol/L (21-25); ABG Oxygen Saturation 45.3 % (94-97); ABG PCO2 39 mmHg (35-45); ABG PH 7.37 (7.35-7.45); Allen Test Performed? Yes
[2024-02-29 15:28] LABS: ABG PO2 28 mmHg (83-108)
[2024-02-29 16:01] LABS: ALT 7 U/L (4-34); AST 40 U/L (14-36); African American GFR (CKD) 15 (>60 ml/min/1.73 sqM); Albumin 2.6 g/dL (3.5-5.0); Alkaline Phosphatase 171 U/L (38-126); Anion Gap 9 mmol/L; Blood Urea Nitrogen 71 mg/dL (7-17); Calcium 7.7 mg/dL (8.4-10.2); Carbon Dioxide 19 mmol/L (22-30); Chloride 104 mmol/L (98-107); Glucose 121 mg/dL (74-99); Non-African American GFR(CKD) 13 (>60 ml/min/1.73 sqM); Potassium 4.7 mmol/L (3.5-5.1); Sodium 132 mmol/L (137-145); Total Bilirubin 0.3 mg/dL (0.2-1.3); Total Protein 4.9 g/dL (6.3-8.2)
[2024-02-29] MEDS: MILRINONE-D5W PMX 20 MG in DEXTROSE/WATER 1 100ML.BAG IV SCH (16:04)
[2024-02-29 17:09] LABS: Glucose,Whole Blood 130 mg/dL (70-110)
[2024-02-29 20:02] LABS: Glucose,Whole Blood 238 mg/dL (70-110)
--- NOTE | 2024-03-01 03:27 | P.PN ---
Subjective Progress Note Date: 02/29/24 This is a pleasant 58 years old female with past medical history of multiple medical problems as below She has been incarcerated for 52 days, there is officer at bedside. Patient presents because of shortness of breath and exertional dyspnea has for the last 2 days, she states she hears herself wheezing when she lies down. Currently she is breathing quietly. She is complaining for mild chest pain on the left side, nonradiating nonspecific, feels much better now and very mild. She has occasional cough but no phlegm. Also she is complaining from upset stomach but no diarrhea or vomiting She complains from decreased urination but no dysuria or urgency. She has mild headache feels generally weak but no dizziness or blurry vision. She used to smoke half pack per day before she got incarcerated No alcohol or illicit drugs. She follow-up with her gas prover Dr. Donal Herrera and hogshead packer Dr. Babb who examined her about 2 months ago where she has some mild ulcer In the bottom of her right total This morning patient has low-grade fever 100.2 She is also mildly tachypneic around 22 She is saturating 93% on 2 L oxygen via nasal cannula Labs reviewed showing hemoglobin of 7.7, rest of CBC is unremarkable BMP liver enzymes not elevated. INR 0.9. Lactic 0.9 proBNP is elevated 25 100 EKG showing sinus rhythm at [address]-T changes, no left bundle branch block 02/17/2024 --Patient is seen and evaluated in room at bedside; remains on Lasix drip, remains in negative fluid balance - patient underwent cardiac catheterization which revealed severe triple-vessel coronary artery disease and now she is being evaluated for possible myocardial revascularization. Patient remains on oxygen at 2 L/min and her O2 sats is 97%, her PFT showed severe obstructive lung disease, however not severe enough to not consider myocardial revascularization if the patient is cleared by other consultants including nephrology and cardiology. Patient has been a smoker over the years, she had at least a 36-ziam-euwe smoking history. Remind you patient had a PFT with chest x-ray still showing evidence of pulmonary edema which will definitely compromise her PFT will likely reflect more restriction than obstructive lung disease. WBC count today is 4.9 hemoglobin 7.7 electrolytes are normal BUN is 85 creatinine 3.59 02/18/2024 Patient is seen and evaluated in room at bedside; sitting up in bed; ports stabl e breathing - patient underwent AFRICA which revealed aortic valve tricuspid and functioning normally. Mitral valve structurally normal with mild central secondary mitral regurgitation. Pulmonary vein flow has systolic dominance. Tricuspid valve appears to be normal with mild tricuspid regurgitation. Intra-atrial septum is intact with no evidence of PFO. Left atrial appendage free of clot. LV EF 35% with global hypokinesis. -- Patient is followed by cardiothoracic surgery and also nephrology. Nephrology not recommending any indication or need for hemodialysis. Patient remains on Lasix drip per nephrology. Patient has a negative fluid balance of 1322. Repeat blood work reveals hemoglobin is 7.9. BUN 82 creatinine 3.39. Mild elevation in liver function test. -Plan for surgery once clinically optimized 02/19/2024 Patient looks more awake than admission, sitting up in bed. Shelter officers at bedside Mentation at baseline. She talks freely. Denies chest pain or dyspnea at rest On presentation patient was found acute CHF and non-STEMI, workup showing triple-vessel coronary artery disease and patient will require bypass procedure with cardiothoracic surgery team on the case once medically optimized. Patient currently with fluid overload on Lasix drip, on admission it was 5 mg/h, currently increased to 10 mg/h. She is making around 1 L of urine output by yesterday. Saldaña catheter in place. She is also on aspirin 81 mg Hemoglobin 8.5, creatinine 3.3 compared to 2.7 on admission with baseline 0.9- 1.2. Liver enzymes mildly elevated since admission. 02/20/2024 Patient came from [facility] for an NSTEMI. Workup showing severe triple-vessel coronary artery disease currently being evaluated by cardiothoracic surgery team for possible cardiac bypass procedure. However she needs optimization and she is currently kept on IV Lasix 10 mg, creatinine went up 3.3 today. Documentation Consultant recommended to continue with Lasix drip still tomorrow Patient diabetic, she is on Levemir 8 units twice daily, she is developing episodes of hypoglycemia we will going to lower the dose to 6 units twice daily She is also on aspirin 325 mg 02/21/2024 Patient continues to improve today, she is more energetic, less dyspneic Lasix drip switched to IV Lasix 60 mg twice daily Cardiothoracic surgery team with plan for valve replacement surgery on this coming Sunday 02/25 Sugars better controlled with no hyperglycemia on Levemir 6 units twice daily 02/22/2024 Patient breathing is stable, denies chest pain No new complaint Will go check breathing tomorrow Plan for cardiac surgery on Monday02/23/2024 Patient awake alert She feels more weak today Creatinine is up Plan for cardiac surgery early next week 02/24/2024 Patient feels weak No chest pain or dyspnea Patient anticipates surgery on Monday chief strategy officer at bedside 02/25/2024 Patient awake alert looks comfortable Generally weak Creatinine stable around 3.2 Plan for bypass cardiac surgery tomorrow, patient is agreeable to the current plan 02/26/2024 Patient is seen in follow-up today for [facility] Patient currently n.p.o. and preop. Will await surgical report. 02/27/2024 Patient is seen in follow-up this morning currently in the ICU with multiple medical consultations following. Patient is status post bypass yesterday currently maintained on 4 L via nasal cannula. Patient is reporting some shortness of breath although biggest concern is severe nausea. Patient is maintained on Reglan and Zofran as needed. Will make Reglan scheduled. Patient did have mediastinal chest tube removed and was taken off balloon pump most recently this morning. Patient continues on insulin drip and will continue monitoring sugars closely continue with current regimen and will transition off insulin drip once patient nausea is improved and tolerating diet. Patient is afebrile at this time. 02/28/2024 Patient is seen in follow-up today currently sitting up in the chair tolerating ice chips. Patient reports continues with intermittent nausea although significantly improved. Patient remains on 2 L and has been working on incentive spirometer. Encouraged at least 10 times every hour while awake. Patient was on insulin drip with history of diabetes and being transition to sliding scale. Patient was given a dose of long-acting and will make twice daily and recommend monitoring Accu-Cheks before meals and at bedtime and 2 AM for tight glycemic control. Kidney functions are stable with nephrology following. 02/29/2024 Patient is seen in follow-up continues in the ICU with multiple medical consultations following. Patient is currently hypotensive medications being adjusted and patient is receiving albumin. Patient reports to feeling exhausted and not sleeping very well. Patient's blood sugars being adjusted and using sliding scale. Continue with Levemir twice daily and will adjust accordingly. Blood sugars have been on the lower side and not requiring long-acting. Patient not eating much and continues with some nausea. Review of systems: Constitutional: reports of fatigue today, no fever, or chills Cardiovascular: reports of chest wall pain Respiratory: No reports of shortness of breath or cough GI: reports of intermittent nausea and improving, no vomiting, or diarrhea : No reports of dysuria or retention Neurovascular: reports of generalized weakness All medications have been reviewed Active Medications Acetaminophen (Acetaminophen Tab 325 Mg Tab) 650 mg PO Q4HR PRN PRN Reason: Fever and/ or Pain Hydrocodone Bitart/Acetaminophen (Hydrocodone/Apap 5-325mg 1 Each Tab) 1 each PO Q4HR PRN PRN Reason: Mild to Moderate Pain (1 - 6) Last Admin: 02/29/24 23:08 Dose: 1 each Hydrocodone Bitart/Acetaminophen (Hydrocodone/Apap 10-325mg 1 Each Tab) 1 each PO Q4HR PRN PRN Reason: Severe Pain (Scale 7 to 10) Albuterol/Ipratropium (Ipratropium-Albuterol 3 Ml Neb) 3 ml INHALATION RT-Q2H PRN PRN Reason: Shortness Of Breath Or Wheezing Albuterol/Ipratropium (Ipratropium-Albuterol 3 Ml Neb) 3 ml INHALATION RT-QID [facility] Last Admin: 02/29/24 19:38 Dose: Not Given Amiodarone HCl (Amiodarone 200 Mg Tab) 400 mg PO BID [facility] Last Admin: 02/29/24 20:10 Dose: 400 mg Aspirin (Aspirin 325 Mg Tab) 325 mg PO DAILY [facility] Last Admin: 02/29/24 08:04 Dose: 325 mg Atorvastatin Calcium (Atorvastatin 40 Mg Tab) 40 mg PO DAILY [facility] Last Admin: 02/29/24 08:04 Dose: 40 mg Benzocaine/Menthol (Benzocaine/Menthol Lozeng 1 Each Lozenge) 1 each MUCOUS MEM Q2H PRN PRN Reason: Sore Throat Last Admin: 02/29/24 01:41 Dose: 1 each Bisacodyl (Bisacodyl 10 Mg Supp) 10 mg RECTAL DAILY PRN PRN Reason: Constipation Budesonide/Formoterol Fumarate (Symbicort 160-4.5 Mcg Inhaler) 2 puff INHALATION RT-BID [facility] Last Admin: 02/29/24 19:38 Dose: Not Given Clopidogrel Bisulfate (Clopidogrel 75 Mg Tab) 75 mg PO DAILY [facility] Last Admin: 02/29/24 08:05 Dose: 75 mg Dextrose/Water (Dextrose 50% Syringe 50 Ml) 25 ml IVP PER PROTOCOL PRN; Protocol PRN Reason: Hypoglycemia Dextrose/Water (Dextrose 50% Syringe 50 Ml) 50 ml IVP PER PROTOCOL PRN; Protocol PRN Reason: Hypoglycemia Heparin Sodium (Porcine) (Heparin Sodium,Porcine 5,000 Unit/Ml 1 Ml Vial) 5,000 unit SQ Q8HR [facility] Last Admin: 02/29/24 23:09 Dose: 5,000 unit Hydralazine HCl (Hydralazine Hcl 10 Mg Tab) 20 mg PO Q6H [facility] Last Admin: 03/01/24 01:22 Dose: 20 mg Amiodarone HCl 150 mg/ (Dextrose/Water) 103 mls @ 618 mls/hr IV .Q10M PRN PRN Reason: A.FIB/FLUTTER Calcium Gluconate/Sodium (Chloride 2 gm/ IV Solution) 100 mls @ 100 mls/hr IVPB ONCE PRN PRN Reason: Ionized Calcium less than 4.4 Stop: 03/08/24 13:53 Dopamine HCl/Dextrose 800 mg/ (IV Solution) 250 mls @ 4.052 mls/hr IV .Q24H [facility] Last Admin: 02/29/24 16:58 Dose: 4.052 mls/hr Ferric Sodium Gluconate 125 mg (/ Sodium Chloride) 110 mls @ 100 mls/hr IVPB DAILY [facility] Stop: 03/02/24 11:01 Last Admin: 02/29/24 09:27 Dose: 100 mls/hr Sodium Chloride (Saline 0.9%) 1,000 mls @ 80 mls/hr IV .[id number] [facility] Last Admin: 02/29/24 20:47 Dose: Not Given Milrinone Lactate/Dextrose 20 (mg/ IV Solution) 100 mls @ 5.993 mls/hr IV .[id number] [facility] Last Admin: 02/29/24 16:04 Dose: 0.25 mcg/kg/min, 5.993 mls/hr Insulin Aspart (Insulin Aspart (Novolog) 100 Unit/Ml Vial) 0 unit SQ ACHS [facility]; Protocol Last Admin: 02/29/24 20:10 Dose: 4 unit Insulin Detemir (Insulin Detemir (Levemir) 100 Unit/Ml Syr) 10 unit SQ BID@0700,2100 [facility] Last Admin: 02/29/24 20:10 Dose: 10 unit Levothyroxine Sodium (Levothyroxine 88 Mcg Tab) 176 mcg PO DAILY@0630 [facility] Last Admin: 02/29/24 06:56 Dose: 176 mcg Metoclopramide HCl (Metoclopramide 5 Mg/Ml 2 Ml Vial) 5 mg IVP Q6HR PRN PRN Reason: Nausea And Vomiting Last Admin: 02/28/24 19:56 Dose: 5 mg Metoprolol Tartrate (Metoprolol Tartrate 12.5 Mg Tab) 12.5 mg PO BID [facility] Last Admin: 02/29/24 21:07 Dose: 12.5 mg Midodrine (Midodrine 5 Mg Tab) 5 mg PO AC-TID [facility] Last Admin: 02/29/24 16:58 Dose: 5 mg Miscellaneous Information (Magnesium Replacement Protocol 1 Each Misc) 1 each MISCELLANE DAILY PRN; Protocol PRN Reason: Per Protocol Miscellaneous Information (Potassium Replacement Protocol 1 Each Misc) 1 each MISCELLANE DAILY PRN; Protocol PRN Reason: Per Protocol Miscellaneous Information (Phosphorus Replacement Protoco 1 Each Misc) 1 each MISCELLANE DAILY PRN; Protocol PRN Reason: Per Protocol Ondansetron HCl (Ondansetron 4 Mg/2 Ml Vial) 4 mg IVP Q6HR PRN PRN Reason: Nausea And Vomiting Last Admin: 02/29/24 16:24 Dose: 4 mg Pantoprazole Sodium (Pantoprazole 40 Mg Tablet) 40 mg PO AC-BRKFST [facility] Last Admin: 02/29/24 06:42 Dose: 40 mg Senna/Docusate Sodium (Sennosides-Docusate Sodium 1 Each Tab) 2 each PO HS [facility] Last Admin: 02/29/24 20:10 Dose: 2 each Sodium Chloride (Sodium Chloride 0.9% Flush 10 Ml Syringe) 10 ml IV BID [facility] Last Admin: 02/29/24 20:11 Dose: 10 ml Physical exam: GENERAL: The patient is alert and oriented x3, pale, currently sitting up in the chair well developed, thin built. Generally weak, elderly appearing HEENT: Pupils are round and equally reacting to light. EOMI. No scleral icterus. No conjunctival pallor. Normocephalic, atraumatic. No pharyngeal erythema. No thyromegaly. CARDIOVASCULAR: S1 and S2 muffled, heart hugger noted PULMONARY: Diminished breath sounds bilaterally otherwise chest is clear to auscultation, no wheezing , faint crackles. Tachypnea ABDOMEN: Soft, nontender, nondistended, normoactive bowel sounds. No palpable organomegaly. Saldaña catheter in place MUSCULOSKELETAL: No joint swelling or deformity. EXTREMITIES: No cyanosis, clubbing, 1+ bilateral pitting leg edema. NEUROLOGICAL: Gross neurological examination did not reveal any focal deficits. Diffusely weak SKIN: No rashes. no petechiae. Pale Assessment: Acute systolic CHF exacerbation, ejection fraction: 20 to 25% non-STEMI, ekg New left bundle branch block, secondary to triple-vessel coronary artery disease status post CABG, postop day 3. Mild hypoxic respiratory failure, improving Acute kidney injury on chronic kidney disease, nonoliguric Acute on chronic anemia of chronic disease Acute urinary tract infection, urine culture showing skin or genital kwesi. Resolved Diabetes mellitus, type II, uncontrolled with hyper and hypoglycemia Continued ongoing nicotine dependence Chronic ulcers of the right big toe Chronic kidney disease stage II with acute kidney injury GI prophylaxis DVT prophylaxis Full code Plan: Cardiothoracic surgery team following as attending and patient is status post bypass procedure and off balloon pump . Mediastinal chest tube removed, daily chest x-ray ordered and difficult to exclude tiny pneumothoraces, continue chest tube for now Patient was maintained on insulin drip and has been transitioned to sliding scale along with long-acting. Patient received a dose of long-acting this morning and will make twice daily and recommend to monitor Accu-Cheks before meals and at bedtime as well as 2 AM. Blood sugars have been on the lower side today as patient is not eating much Continue with antinausea medications as needed Nephrology following and kidney functions are stable and being closely monitored. Patient continues with indwelling Saldaña catheter for strict intake and output monitoring Patient is continued on dopamine and weaning We will continue to follow with cardiothoracic during hospitalization. Due to multiple complex medical issues, overall prognosis is guarded The impression and plan of care has been dictated by Mandy Granda, Nurse Practitioner as directed. Dr. Jordyn MD I have performed a history and examination and MDM of this patient, discussed the same with the dictator, and agree with the dictator's assessment and plan as written ,documented as a scribe. Based on total visit time, I have performed more than 50% of the visit. Objective - Vital Signs Vital signs: Vital Signs Temp 99.1 F 02/29/24 09:00 Pulse 76 02/29/24 10:00 Resp 19 02/29/24 10:00 BP 86/49 02/29/24 10:00 Pulse Ox 97 02/29/24 10:00 FiO2 40 02/26/24 16:39 Intake & Output 02/28/24 02/29/24 02/29/24 18:59 06:59 18:59 Intake Total 536.64 862 552 Output Total 490 485 265 Balance 46.64 377 287 Weight 79.9 kg Intake: IV 486 862 368 .9NS Cardiac Output 90 180 40 .9NS Pressure Bag 66 72 18 Albumin Human 5% 250 ml 250 250 In Empty Bag 1 bag @ 250 mls/hr IVPB Q1HR PRN Rx#: [id number] Lactated Ringers 1,000 ml 330 360 60 @ 20 mls/hr IV .Q24H [facility] Rx#:[id number] Intake, IV Titration 50.64 184 Amount Albumin Human 25% 50 ml 50 In Empty Bag 1 bag @ 50 mls/hr IVPB ONCE STA Rx#: [id number] Dextrose/Water 1 250ml. 4 bag @ 1.5 MCG/KG/MIN 2. 026 mls/hr IV .Q24H [facility] with DOPamine DRIP 800 mg Rx#:[id number] Insulin Regular 100 unit 0.64 In Sodium Chloride 0.9% 100 ml @ Per Protocol IV .Q0M [facility] Rx#:[id number] Sodium Chloride 0.9% 1, 80 000 ml @ 80 mls/hr IV . [id number] [facility] Rx#:[id number] Sodium Ferric Gluconat- 100 Sucrose 125 mg In Sodium Chloride 0.9% 100 ml @ 100 mls/hr IVPB DAILY [facility] Rx#:[id number] Output: Chest Tube Drainage 340 340 180 Left Pleural Chest Tube 200 195 105 Right Pleural Chest Tube 140 145 75 Urine 150 145 35 Emesis 50 Other: Voiding Method Indwelling Catheter Indwelling Catheter ABP, PAP, CO, CI - Last Documented Arterial Blood Pressure 139/47 Pulmonary Artery Pressure 24/9 Cardiac Output 3 Cardiac Index 1.6 - Labs CBC & Chem 7: 02/29/24 05:15 02/29/24 15:15 Labs: Abnormal Lab Results - Last 24 Hours (Table) 02/28/24 02/28/24 02/28/24 Range/Units 06:05 11:22 16:04 RBC (3.80-5.40) m/uL Hgb (11.4-16.0) gm/dL Hct (34.0-46.0) % Neutrophils # (1.3-7.7) k/uL ABG pO2 (83-108) mmHg ABG HCO3 (21-25) mmol/L ABG O2 Saturation (94-97) % Sodium (137-145) mmol/L Carbon Dioxide (22-30) mmol/L BUN (7-17) mg/dL Creatinine (0.52-1.04) mg/dL POC Glucose (mg/dL) 135 H 231 H (70-110) mg/dL AST (14-36) U/L Alkaline Phosphatase (38-126) U/L Total Protein (6.3-8.2) g/dL Albumin (3.5-5.0) g/dL Lipase 19 L (23-300) U/L 02/28/24 02/29/24 02/29/24 Range/Units 21:07 05:15 05:15 RBC 3.07 L (3.80-5.40) m/uL Hgb 9.2 L (11.4-16.0) gm/dL Hct 29.2 L (34.0-46.0) % Neutrophils # 8.1 H (1.3-7.7) k/uL ABG pO2 (83-108) mmHg ABG HCO3 (21-25) mmol/L ABG O2 Saturation (94-97) % Sodium 131 L (137-145) mmol/L Carbon Dioxide 18 L (22-30) mmol/L BUN 66 H (7-17) mg/dL Creatinine 3.66 H (0.52-1.04) mg/dL POC Glucose (mg/dL) 177 H (70-110) mg/dL AST 45 H (14-36) U/L Alkaline Phosphatase 185 H (38-126) U/L Total Protein 5.3 L (6.3-8.2) g/dL Albumin 2.8 L (3.5-5.0) g/dL Lipase (23-300) U/L 02/29/24 Range/Units 09:47 RBC (3.80-5.40) m/uL Hgb (11.4-16.0) gm/dL Hct (34.0-46.0) % Neutrophils # (1.3-7.7) k/uL ABG pO2 26 L* (83-108) mmHg ABG HCO3 26 H (21-25) mmol/L ABG O2 Saturation 42.6 L (94-97) % Sodium (137-145) mmol/L Carbon Dioxide (22-30) mmol/L BUN (7-17) mg/dL Creatinine (0.52-1.04) mg/dL POC Glucose (mg/dL) (70-110) mg/dL AST (14-36) U/L Alkaline Phosphatase (38-126) U/L Total Protein (6.3-8.2) g/dL Albumin (3.5-5.0) g/dL Lipase (23-300) U/L
[2024-03-01 04:22] LABS: Glucose,Whole Blood 130 mg/dL (70-110)
[2024-03-01 05:04] LABS: Basophils % (A) 0 %; Eosinophils # (A) 0.2 k/uL (0-0.7); Eosinophils % (A) 2 %; HCT 27.8 % (34.0-46.0); HGB 8.7 gm/dL (11.4-16.0); Hypochromasia Slight; Lymphocytes # (A) 1.1 k/uL (1.0-4.8); Lymphocytes % (A) 12 %; MCH 29.7 pg (25.0-35.0); MCHC 31.3 g/dL (31.0-37.0); MCV 94.9 fL (80.0-100.0); Mean Platelet Volume 8.5; Monocytes # (A) 0.6 k/uL (0-1.0); Monocytes % (A) 7 %; Neutrophils # (A) 6.7 k/uL (1.3-7.7); Neutrophils % (A) 77 %; Platelet Count 307 k/uL (150-450); RBC 2.93 m/uL (3.80-5.40); RDW 14.5 % (11.5-15.5); WBC 8.7 k/uL (3.8-10.6)
[2024-03-01 05:13] LABS: ALT <6 U/L (4-34); AST 27 U/L (14-36); African American GFR (CKD) 14 (>60 ml/min/1.73 sqM); Albumin 2.8 g/dL (3.5-5.0); Alkaline Phosphatase 157 U/L (38-126); Anion Gap 10 mmol/L; Blood Urea Nitrogen 73 mg/dL (7-17); Calcium 8.1 mg/dL (8.4-10.2); Carbon Dioxide 16 mmol/L (22-30); Chloride 104 mmol/L (98-107); Glucose 119 mg/dL (74-99); Non-African American GFR(CKD) 12 (>60 ml/min/1.73 sqM); Potassium 4.4 mmol/L (3.5-5.1); Sodium 130 mmol/L (137-145); Total Bilirubin 0.3 mg/dL (0.2-1.3)
[2024-03-01 06:42] LABS: Glucose,Whole Blood 123 mg/dL (70-110)
[2024-03-01 07:50] LABS: ABG Base Excess -3.9 mmol/L; ABG HCO3 21 mmol/L (21-25); ABG Oxygen Saturation 57.4 % (94-97); ABG PCO2 38 mmHg (35-45); ABG PH 7.35 (7.35-7.45)
[2024-03-01 07:54] LABS: ABG PO2 34 mmHg (83-108)
--- NOTE | 2024-03-01 08:25 | P.PN ---
Subjective Progress Note Date: 03/01/24 Principal diagnosis: Triple-vessel coronary artery disease, non-STEMI this admission, acute systolic heart failure with reduced ejection fraction 35%, new onset ischemic cardiomyop athy, mild mitral valve regurgitation on A[place], acute on chronic kidney disease, acute anemia. History of hypertension, hyperlipidemia, hypothyroid, diabetes mellitus, CVA, hepatitis as a child, CKD stage IV, previous tobacco dependence with recent cessation, severe COPD, previous methamphetamine use with recent cessation, family history of coronary artery disease. POD #4 Off-pump CABG x 4 with sequential left internal mammary artery to left anterior descending coronary artery and diagonal coronary artery, reverse saphenous vein graft's to the posterior descending coronary artery and second o btuse marginal coronary artery, closure of the left atrial appendage with 35mm AtriCure clip, placement of percutaneous right femoral intra-aortic balloon pump, transesophageal echocardiogram performed by anesthesia. Postoperative acute blood loss anemia, expected secondary to hemodilution and preoperative anemia. The patient was seen and examined in follow-up today March 01, 2024 at her bedside in the intensive care unit. The patient is currently sitting up to bedside chair, is awake, alert, oriented x 3 and is in no acute apparent distress. She denies any complaints of shortness of breath at this time, although is complaining of some surgical type pain to her chest tube insertion sites and to her bilateral shoulder blades. She is rating her pain 5 out of 10 on the pain scale at this time. She denies any further complaints of nausea at this time, and is tolerating her breakfast. Primacor drip was initiated yesterday and is currently infusing at 0.25 mcg/kg/min, right IJ cordis remains in place with current hemodynamics showing a cardiac output of 4.2, cardiac index 2.3, PA pres sures 38/19, CVP 19 mmHg and SVR 1065. Oxygen saturations are 94% on 3 L nasal cannula and she is achieving 750 mL on her incentive spirometry with encouragement. Bedside telemetry is showing normal sinus rhythm heart rate 78 bpm. Blood pressure is currently 111/61 with a MAP of 78. Right and left pleural chest tubes remain in place to low continuous wall suction -20 cm H2O. No air leak is present. Right pleural chest tube draining thin serosanguineous drainage with 160 mL output in the last 8 hours and 500 mL output in the last 24 hours. Left pleural chest tube draining thin serosanguineous drainage with 260 mL output in the last 8 hours and 650 mL output in the last 24 hours. Saldaña catheter remains in place for accurate I's and O's with 155 mL of urine output in the last 8 hours. 0.9% normal saline remains infusing at 80 mL/h and dopamine drip remains infusing at 3 mcg/kg/min for renal support. The patient was also started on midodrine 5 mg p.o. 3 times daily yesterday due to some episodes of hypotension with a systolic blood pressure in the 80s. Laboratory and chest x-ray results were reviewed. Objective - Vital Signs Vital signs: Vital Signs Temp 97 F L 03/01/24 00:00 Pulse 78 03/01/24 07:00 Resp 16 03/01/24 07:00 BP 111/61 03/01/24 07:00 Pulse Ox 95 03/01/24 07:00 FiO2 40 02/26/24 16:39 Intake & Output 02/29/24 03/01/24 03/01/24 18:59 06:59 18:59 Intake Total 2940 830.597 106 Output Total 785 890 65 Balance 2155 -59.403 41 Weight 83.9 kg Intake: IV 772 172 26 .9NS Cardiac Output 140 100 20 .9NS Pressure Bag 72 72 6 Albumin Human 5% 250 ml 500 In Empty Bag 1 bag @ 250 mls/hr IVPB Q1HR PRN Rx#: [id number] Lactated Ringers 1,000 ml 60 @ 20 mls/hr IV .Q24H [facility] Rx#:[id number] Intake, IV Titration 1708 658.597 80 Amount Albumin Human 5% 250 ml 250 In Empty Bag 1 bag @ 250 mls/hr IVPB ONCE STA Rx#: [id number] Albumin Human 5% 500 ml 500 In Empty Bag 1 bag @ 500 mls/hr IVPB ONCE ONE Rx#: [id number] Dextrose/Water 1 250ml. 40 4 bag @ 3 MCG/KG/MIN 4.052 mls/hr IV .Q24H [facility]NDSA[facility] with DOPamine DRIP 800 mg Rx#: [id number] Milrinone-D5w Pmx 20 mg 18 94.597 In Dextrose/Water 1 100ml .bag @ 0.25 MCG/KG/MIN 5. 993 mls/hr IV .[id number] [facility] Rx#:[id number] Sodium Chloride 0.9% 1, 800 560 80 000 ml @ 80 mls/hr IV . [id number] [facility]NDSA[facility] Rx#:[id number] Sodium Ferric Gluconat- 100 Sucrose 125 mg In Sodium Chloride 0.9% 100 ml @ 100 mls/hr IVPB DAILY [facility] Rx#:[id number] Oral 460 Output: Chest Tube Drainage 570 660 50 Left Pleural Chest Tube 335 340 20 Right Pleural Chest Tube 235 320 30 Urine 165 230 15 Emesis 50 Other: Voiding Method Indwelling Catheter Indwelling Catheter ABP, PAP, CO, CI - Last Documented Arterial Blood Pressure 139/47 Pulmonary Artery Pressure 38/17 Cardiac Output 4.2 Cardiac Index 2.3 - Exam CONSTITUTIONAL: Sitting up to the bedside chair in the intensive care unit, appears comfortable, cooperative, no apparent acute distress. HEENT: Neck is supple, no JVD, no lymphadenopathy. Right IJ Cordis and [place]- Jamal catheter in place and functioning. RESPIRATORY: Lungs sounds essentially clear throughout, diminished to her bilateral bases. Respirations are symmetrical and nonlabored. Currently on 3 L nasal cannula with oxygen saturations 94%. Able to achieve 750 mL on her incentive spirometry. Strong cough. CARDIOVASCULAR: Regular rhythm and rate. S1 and S2 present, negative for S3, gallop or murmur. Bedside telemetry showing normal sinus rhythm heart rate 78 bpm. Sternum is stable. Palpable peripheral pulses bilaterally. No calf pain or tenderness noted. Heart hugger in place with patient demonstrating appropriate use. Knee-high CRISTOBAL hose and sequential compression devices in place to his bilateral lower extremities. GASTROINTESTINAL: Abdomen soft, nontender, nondistended. Active bowel sounds present 4 quadrants. Passing flatus. No guarding or rigidity. Tolerating full liquid diet. GENITOURINARY: Saldaña present draining clear, yellow urine. Marginal urine output with 155 mL output in the last 8 hours. INTEGUMENTARY: Skin is warm and dry with no evidence of clubbing or cyanosis. Midline sternal incision clean dry and well approximated, covered with dry intact dressing. Left lower extremity EVH sites well approximated without redness or drainage. NEUROLOGIC: Cranial nerves II through XII intact. No focal deficits. MUSKULOSKELETAL: Able to move all extremities, strength equal bilaterally, generalized weakness. PSYCHIATRIC: Alert and oriented to person place and time, appropriate affect, intact judgment and insight. INVASIVE LINES AND TUBES: Left/right pleural chest tubes present and connected to low continuous wall suction, no air leaks present. Right internal jugular [place]/Cordis, line present. Left pleural chest tube drained 260 mL of thin serosanguineous drainage in the last 8 hours and 650 mL in the last 24 hours. Right pleural chest tube drained 160 mL of thin serosanguineous drainage in the last 8 hours and 500 mL in the last 24 hours. Current CO 4.3, CI 2.3, PA 38/19 and CVP 19 mmHg, and SVR to 1065. - Allied health notes Allied health notes reviewed: nursing - Labs CBC & Chem 7: 03/01/24 04:54 03/01/24 04:49 Labs: Abnormal Lab Results - Last 24 Hours (Table) 02/29/24 02/29/24 02/29/24 Range/Units 09:47 12:00 15:15 RBC (3.80-5.40) m/uL Hgb (11.4-16.0) gm/dL Hct (34.0-46.0) % ABG pO2 26 L* (83-108) mmHg ABG HCO3 26 H (21-25) mmol/L ABG O2 Saturation 42.6 L (94-97) % Sodium 132 L (137-145) mmol/L Carbon Dioxide 19 L (22-30) mmol/L BUN 71 H (7-17) mg/dL Creatinine 3.57 H (0.52-1.04) mg/dL Glucose 121 H (74-99) mg/dL POC Glucose (mg/dL) 169 H (70-110) mg/dL Calcium 7.7 L (8.4-10.2) mg/dL AST 40 H (14-36) U/L Alkaline Phosphatase 171 H (38-126) U/L Total Protein 4.9 L (6.3-8.2) g/dL Albumin 2.6 L (3.5-5.0) g/dL 02/29/24 02/29/24 02/29/24 Range/Units 15:20 17:07 20:01 RBC (3.80-5.40) m/uL Hgb (11.4-16.0) gm/dL Hct (34.0-46.0) % ABG pO2 28 L* (83-108) mmHg ABG HCO3 (21-25) mmol/L ABG O2 Saturation 45.3 L (94-97) % Sodium (137-145) mmol/L Carbon Dioxide (22-30) mmol/L BUN (7-17) mg/dL Creatinine (0.52-1.04) mg/dL Glucose (74-99) mg/dL POC Glucose (mg/dL) 130 H 238 H (70-110) mg/dL Calcium (8.4-10.2) mg/dL AST (14-36) U/L Alkaline Phosphatase (38-126) U/L Total Protein (6.3-8.2) g/dL Albumin (3.5-5.0) g/dL 03/01/24 03/01/24 03/01/24 Range/Units 04:20 04:49 04:54 RBC 2.93 L (3.80-5.40) m/uL Hgb 8.7 L (11.4-16.0) gm/dL Hct 27.8 L (34.0-46.0) % ABG pO2 (83-108) mmHg ABG HCO3 (21-25) mmol/L ABG O2 Saturation (94-97) % Sodium 130 L (137-145) mmol/L Carbon Dioxide 16 L (22-30) mmol/L BUN 73 H (7-17) mg/dL Creatinine 3.92 H (0.52-1.04) mg/dL Glucose 119 H (74-99) mg/dL POC Glucose (mg/dL) 130 H (70-110) mg/dL Calcium 8.1 L (8.4-10.2) mg/dL AST (14-36) U/L Alkaline Phosphatase 157 H (38-126) U/L Total Protein 5.0 L (6.3-8.2) g/dL Albumin 2.8 L (3.5-5.0) g/dL 03/01/24 03/01/24 Range/Units 06:41 07:46 RBC (3.80-5.40) m/uL Hgb (11.4-16.0) gm/dL Hct (34.0-46.0) % ABG pO2 34 L* (83-108) mmHg ABG HCO3 (21-25) mmol/L ABG O2 Saturation 57.4 L (94-97) % Sodium (137-145) mmol/L Carbon Dioxide (22-30) mmol/L BUN (7-17) mg/dL Creatinine (0.52-1.04) mg/dL Glucose (74-99) mg/dL POC Glucose (mg/dL) 123 H (70-110) mg/dL Calcium (8.4-10.2) mg/dL AST (14-36) U/L Alkaline Phosphatase (38-126) U/L Total Protein (6.3-8.2) g/dL Albumin (3.5-5.0) g/dL - Imaging and Cardiology Chest x-ray: report reviewed, image reviewed Assessment and Plan Assessment: Triple-vessel coronary artery disease, non-STEMI this admission, status post four-vessel off-pump coronary artery bypass grafting surgery Acute systolic heart failure with reduced ejection fraction, 20-25%, 35% on [place] New onset ischemic cardiomyopathy Moderate to severe mitral regurgitation on transthoracic echocardiogram, mild mitral regurgitation on [place] Acute on chronic kidney disease Acute anemia Hypertension Hyperlipidemia, treated, cholesterol 150, LDL 72.8 Hypothyroid, TSH 1.73 Diabetes mellitus, hemoglobin A1c 7.1% CVA Hepatitis as a child Chronic kidney disease Previous tobacco dependence with recent cessation Severe COPD, preoperative FEV1 27% of predicted Previous methamphetamine use with recent cessation Family history of coronary artery disease with sister having multiple stents Postoperative acute blood loss anemia, expected given hemodilution and preoperative anemia Plan: Continue to maximize medical therapy with aspirin, statin, Plavix, beta-alex. Will increase beta-alex as tolerated. Continue hydralazine for afterload reduction, with hold parameters. Continue dopamine drip at 3 mcg/kg/min. Continue Primacor drip at 0.25 mcg/kg/min. Continue midodrine 5 mg p.o. 3 times daily for blood pressure support. Continue oral amiodarone for atrial fibrillation prophylaxis, patient has not had any atrial fibrillation at this point, bedside telemetry showing normal si nus rhythm. Wean O2 as tolerated. Encourage incentive spirometry use 10 times every hour while awake. Bronchodilators per pulmonology. Increase activity, ambulate as tolerated. PT/OT/cardiac rehab following. Will monitor daily labs and chest x-rays. Electrolyte replacement per protocol. GI/DVT prophylaxis. Pain control per current medication regimen. Avoid Toradol due to kidney failure. Avoid nephrotoxic agents. Insulin management per internal medicine. Continue pleural chest tubes for another 24 hours and monitor output. Continue Saldaña catheter for another 24 hours, continue to record strict accurate intake and output. Keep [place]-Jamal catheter in place with hemodynamic monitoring. Continue 0.9% normal saline at 80 mL/h. Daily weights. More recommendations to follow based on patient's clinical course. Time with Patient: Greater than 30
[2024-03-01] MEDS: SODIUM BICARB 8.4% 50 ML SYR (1 MEQ/ML) IV STA ×2 (09:29)
[2024-03-01] MEDS: DEXTROSE 5% IN WATER 100 ML with AMIODARONE 150 MG IV ONE ×2 (10:10→18:17)
[2024-03-01] MEDS: CALCIUM CHLORIDE 100 MG/ML 10 ML SYRINGE IVP ONE (10:10)
--- NOTE | 2024-03-01 10:14 | P.PN ---
Subjective Patient is seen in follow-up for acute kidney injury. Renal function worsening. Now on Primacor. Underwent CABG February 26, 2024. Blood pressure better. Urine output also improving. Vital signs are stable. General: No acute distress. HEENT: Head exam is unremarkable. On nasal cannula. LUNGS: Chest tubes noted. HEART: Rate and Rhythm are regular. ABDOMEN: Nontender. EXTREMITITES: No edema. Objective - Vital Signs Vital signs: Vital Signs Temp 96.6 F L 03/01/24 08:00 Pulse 79 03/01/24 09:30 Resp 19 03/01/24 09:30 BP 105/56 03/01/24 09:30 Pulse Ox 96 03/01/24 09:30 FiO2 40 02/26/24 16:39 Intake & Output 02/29/24 03/01/24 03/01/24 18:59 06:59 18:59 Intake Total 2940 830.597 216 Output Total 785 890 235 Balance 2155 -59.403 -19 Weight 83.9 kg Intake: IV 772 172 52 .9NS Cardiac Output 140 100 40 .9NS Pressure Bag 72 72 12 Albumin Human 5% 250 ml 500 In Empty Bag 1 bag @ 250 mls/hr IVPB Q1HR PRN Rx#: [id number] Lactated Ringers 1,000 ml 60 @ 20 mls/hr IV .Q24H [facility] Rx#:[id number] Intake, IV Titration 1708 658.597 164 Amount Albumin Human 5% 250 ml 250 In Empty Bag 1 bag @ 250 mls/hr IVPB ONCE STA Rx#: [id number] Albumin Human 5% 500 ml 500 In Empty Bag 1 bag @ 500 mls/hr IVPB ONCE ONE Rx#: [id number] Dextrose/Water 1 250ml. 40 4 4 bag @ 3 MCG/KG/MIN 4.052 mls/hr IV .Q24H LYNDSAY with DOPamine DRIP 800 mg Rx#: [id number] Milrinone-D5w Pmx 20 mg 18 94.597 In Dextrose/Water 1 100ml .bag @ 0.25 MCG/KG/MIN 5. 993 mls/hr IV .[id number] [facility] Rx#:[id number] Sodium Chloride 0.9% 1, 800 560 160 000 ml @ 80 mls/hr IV . [id number] [facility] Rx#:[id number] Sodium Ferric Gluconat- 100 Sucrose 125 mg In Sodium Chloride 0.9% 100 ml @ 100 mls/hr IVPB DAILY [facility] Rx#:[id number] Oral 460 Output: Chest Tube Drainage 570 660 140 Left Pleural Chest Tube 335 340 60 Right Pleural Chest Tube 235 320 80 Urine 165 230 95 Emesis 50 Other: Voiding Method Indwelling Catheter Indwelling Catheter ABP, PAP, CO, CI - Last Documented Arterial Blood Pressure 139/47 Pulmonary Artery Pressure 35/16 Cardiac Output 4.4 Cardiac Index 2.4 - Labs CBC & Chem 7: 03/01/24 04:54 03/01/24 04:49 Labs: Abnormal Lab Results - Last 24 Hours (Table) 02/29/24 02/29/24 02/29/24 Range/Units 12:00 15:15 15:20 RBC (3.80-5.40) m/uL Hgb (11.4-16.0) gm/dL Hct (34.0-46.0) % ABG pO2 28 L* (83-108) mmHg ABG O2 Saturation 45.3 L (94-97) % Sodium 132 L (137-145) mmol/L Carbon Dioxide 19 L (22-30) mmol/L BUN 71 H (7-17) mg/dL Creatinine 3.57 H (0.52-1.04) mg/dL Glucose 121 H (74-99) mg/dL POC Glucose (mg/dL) 169 H (70-110) mg/dL Plasma Lactic Acid Ketan (0.7-2.0) mmol/L Calcium 7.7 L (8.4-10.2) mg/dL AST 40 H (14-36) U/L Alkaline Phosphatase 171 H (38-126) U/L Total Protein 4.9 L (6.3-8.2) g/dL Albumin 2.6 L (3.5-5.0) g/dL 02/29/24 02/29/24 03/01/24 Range/Units 17:07 20:01 04:20 RBC (3.80-5.40) m/uL Hgb (11.4-16.0) gm/dL Hct (34.0-46.0) % ABG pO2 (83-108) mmHg ABG O2 Saturation (94-97) % Sodium (137-145) mmol/L Carbon Dioxide (22-30) mmol/L BUN (7-17) mg/dL Creatinine (0.52-1.04) mg/dL Glucose (74-99) mg/dL POC Glucose (mg/dL) 130 H 238 H 130 H (70-110) mg/dL Plasma Lactic Acid Ketan (0.7-2.0) mmol/L Calcium (8.4-10.2) mg/dL AST (14-36) U/L Alkaline Phosphatase (38-126) U/L Total Protein (6.3-8.2) g/dL Albumin (3.5-5.0) g/dL 03/01/24 03/01/24 03/01/24 Range/Units 04:49 04:54 06:36 RBC 2.93 L (3.80-5.40) m/uL Hgb 8.7 L (11.4-16.0) gm/dL Hct 27.8 L (34.0-46.0) % ABG pO2 (83-108) mmHg ABG O2 Saturation (94-97) % Sodium 130 L (137-145) mmol/L Carbon Dioxide 16 L (22-30) mmol/L BUN 73 H (7-17) mg/dL Creatinine 3.92 H (0.52-1.04) mg/dL Glucose 119 H (74-99) mg/dL POC Glucose (mg/dL) (70-110) mg/dL Plasma Lactic Acid Ketan 0.5 L (0.7-2.0) mmol/L Calcium 8.1 L (8.4-10.2) mg/dL AST (14-36) U/L Alkaline Phosphatase 157 H (38-126) U/L Total Protein 5.0 L (6.3-8.2) g/dL Albumin 2.8 L (3.5-5.0) g/dL 03/01/24 03/01/24 Range/Units 06:41 07:46 RBC (3.80-5.40) m/uL Hgb (11.4-16.0) gm/dL Hct (34.0-46.0) % ABG pO2 34 L* (83-108) mmHg ABG O2 Saturation 57.4 L (94-97) % Sodium (137-145) mmol/L Carbon Dioxide (22-30) mmol/L BUN (7-17) mg/dL Creatinine (0.52-1.04) mg/dL Glucose (74-99) mg/dL POC Glucose (mg/dL) 123 H (70-110) mg/dL Plasma Lactic Acid Ketan (0.7-2.0) mmol/L Calcium (8.4-10.2) mg/dL AST (14-36) U/L Alkaline Phosphatase (38-126) U/L Total Protein (6.3-8.2) g/dL Albumin (3.5-5.0) g/dL Assessment and Plan Plan: Assessment: 1. Acute kidney injury secondary to ATN secondary to cardiorenal syndrome. Also from hypotension. Renal function worse. Creatinine 3.92 today. Creatinine as low as 0.98 dated March 01, 2022. No hydronephrosis noted on kidney ultrasound. Serologies negative. 2. Acute on chronic systolic CHF with ejection fraction of 20 to 25% with moderate to severe mitral regurgitation and mild pulmonary hypertension. 3. Volume overload. Improved with diuresis. 4. Anemia. Iron deficiency noted. Seen by GI. Status post blood transfusion this admission. Also received IV DDAVP. 5. Metabolic acidosis secondary to acute kidney injury and IV fluids. 6. Hyponatremia secondary to acute kidney injury. 7. Urinary retention status post Saldaña catheter placement. Plan: Currently on IV Primacor. Status post IV albumin yesterday. Change IV fluids to bicarb drip. Avoid nephrotoxins. Continue to monitor renal function and urine output. Maintain IV iron. Maintain midodrine.
[2024-03-01] MEDS: HYDROcodone/APAP 10-325MG 1 EACH TAB PO PRN (10:51)
--- NOTE | 2024-03-01 10:53 | XR ---
EXAMINATION TYPE: XR chest 1V portable DATE OF EXAM: 03/01/2024 5:41 AM CLINICAL INDICATION:Female, 58 years old with history of Postop CABG; [facility] COMPARISON: Chest radiographs from TECHNIQUE: XR chest 1V portable Frontal view of the chest. FINDINGS: Lungs/Pleura: Small bilateral pneumothorax on today's exam. There is no evidence of pleural effusion, focal consolidation, Pulmonary vascularity: Unremarkable. Heart/mediastinum: Cardiomediastinal silhouette is enlarged and stable. Left atrial appendage occlusi on device is present. Loop recorder is present. Musculoskeletal: No acute osseous pathology. Other findings: None Lines/Tubes: There is a [place]-Jamal catheter with tip projecting over the spine. Bilateral thoracotomy tubes are present. IMPRESSION: 1. Small bilateral apical pneumothorax on today's exam.. 2. Post surgical changes with pulmonary vascular congestion.
--- NOTE | 2024-03-01 11:03 | PN ---
PROGRESS NOTE This is a 58-year-old lady with coronary artery disease, status post CABG, postop day #5. This morning, she is comfortable at rest, stable hemodynamically. Complains of musculoskeletal pains. Her heart rate is 79, blood pressure is 105/56, respiratory rate 18. She continues to have renal failure with BUN of 73 and creatinine of 3.9, which continues to worsen. The patient is currently on amiodarone, aspirin, Lipitor, Plavix, Lopressor, and midodrine. PHYSICAL EXAMINATION: GENERAL: Comfortable at rest. VITAL SIGNS: Stable. CHEST: Reveals diminished air entry at the bases. HEART: Reveals first and second heart sounds. No gallop. No murmur. EXTREMITIES: Reveals mild edema. Peripheral pulses are felt. LABS: Show hemoglobin of 8.7, platelet count is 307, potassium is 4.4, BUN is 73, creatinine is 3.9. ASSESSMENT: 1. Coronary artery disease, status post bypass surgery, postop day #4. 2. Acute renal failure. 3. Hypotension. PLAN: Will continue with supportive care, IV Lasix, and milrinone as she is on at the moment. MMODL / IJN: [id number] /
[2024-03-01 11:23] LABS: Glucose,Whole Blood 242 mg/dL (70-110)
--- NOTE | 2024-03-01 12:32 | P.PN ---
Subjective Progress Note Date: 03/01/24 Patient 02/26/2024, the patient is being seen immediately after she arrived to the intensive care unit. This patient has been in the hospital for almost 2 weeks. She sustained an acute non-ST segment elevation myocardial infarction. She has severe ischemic cardiomyopathy with an ejection fraction of 20 to 25% along with moderate to severe mitral regurgitation. The patient was optimized and subsequently the patient was taken to the operating room for cardiac revascularization surgery. The patient is known to have COPD, diabetes mellitus type 1, hypertension hyperlipidemia previous history of CVA and hypothyroidism along with fibromyalgia. She is a chronic smoker who carries [id number] smoki ng history. The patient underwent off-pump coronary bypass surgery x 4 with sequential RUSSO to LAD and diagonal and SVG to PDA and second obtuse marginal and closure of the left atrial appendage. An intra-aortic balloon pump was also inserted intraoperatively. At this point in time, the patient is intubated and on mechanical ventilator. The patient was on assist-control mode of mechanical ventilation at the rate of 14, tidal volume of 400 with an FiO2 of 100% with a PEEP of 5. The patient had an initial blood gas that showed a pH of 7.34 with pCO2 of 46 and pO2 of 265. Based on that, the FiO2 was gradually weaned off and the respiratory rate was increased up to 22. Subsequently, the patient remained hemodynamically stable. In fact, her current cardiac output is at 4.8 with an index of 2.6 while being augmented with a one-to-one intra-aortic balloon pump support with a mean augmented arterial pressure of 83-85. She has been on nitroglycerin drip which is running at 5 mg/min and she is also on dopamine at 3 mcg/kg/min. The patient is producing adequate amount of cardiac output. Cardiac rhythm is sinus and the patient is currently on amiodarone. The chest x-ray that was done in the ICU shows adequate expansion of both lungs. The patient has a right IJ Montezuma-Jamal catheter in place and ET tube is around 2 cm above the anthony and the patient has a right pleural left pleural and mediastinal chest tube. Output from the chest tubes have been essentially low in the order of 100-150 cc from the chest tube just arrived from the operating room. Based on her stable condition, the patient was taken gradually off the propofol and the patient is currently undergoing a spontaneous breathing trial with a pressure support of 5 and a PEEP of 5. The weaning parameters were karie quate. The blood work today postop showed a sodium level of 136 with a potassium level of 4.2, BUN is 57 with a creatinine of 2.6 and the patient has a white cell count of 4.9 with a hemoglobin of 9 and a platelet count of 252. She is arousable and she is following commands and moving all 4 extremities without any limitation. She is currently afebrile. 02/27/2024, patient is being seen for a follow-up. Noted the patient is postop day #1 following a coronary artery bypass surgery. The patient underwent an off-pump four-vessel bypass surgery. She required intra-aortic balloon pump support postoperatively. The patient is currently doing well. She is extubated on 2 L of oxygen by nasal cannula. Intra-aortic balloon pump was removed today. Montezuma-Jamal catheter still in place. PA pressures of 37/60. CVP is at 13. Cardiac output is at 5.1 with an index of 2.7. The left lower chest tube has drained 460 cc over the past 24 hours, right lower chest tube and drain 240 cc in the mediastinum has drained 200 cc. The patient is still on nitroglycerin drip at low-dose. Remains on insulin drip at 1.5 units an hour. Remains on a amiodarone maintenance of 0.5 mg/min and the patient is on a normal sinus rhythm. Dopamine is running at 2 mcg/kg/min. No specific complaints. Resting comfortably in bed. Chest x-ray shows no evidence of any pneumothorax. Lungs are well-expanded and the tubes are in place. WBC count of 8.1 with a hemoglobin 9.4 and a platelet count of 328. Sodium is at 134, BUN is 57 with a creatinine of 2.6 and a serum bicarb is at 21. Blood sugars are under adequate control at this point in time while being on insulin drip. Awake and alert and communicating. On 02/28/2024, I am seeing the patient for a follow-up. The patient is postop day #2. Awake and alert and sitting up in the chair. Mediastinal chest tube has been removed. Right lower chest tube and drains are out 4 the intra-aortic balloon pump has been removed. Exit site is clean. The patient remains on dopamine 70 cc over the past 24 hours and a left pleural chest tube with drain 870 cc over the past 24 hours. The patient is currently on 2 L of O2 nasal cannula. At 2 mcg/kg/min. The patient has been switched to oral amiodarone 4 mg p.o. twice a day and the patient is also on metoprolol 12.5 mg twice a day and the patient on aspirin and Plavix. Insulin drip is still running at 1 unit an hour. Using incentive spirometer, pulling approximately 500 cc. Blood work from today shows WBC count of 12.4 with a hemoglobin 10.2, BUN 62 with a creatinine of 3.07 and a sodium levels at 135 with a bicarb level is at 20. Chest x-ray shows essentially postsurgical changes. Mediastinal chest tube has been removed. The right and the pleural chest tubes are still in place. Cannot rule out very tiny apical pneumothoraces. There is some mild pulm vessel congestion. Otherwise, no other significant events overnight and the patient is alert and awake and communicating. 02/29/2024, the patient is being seen in cardiac follow-up. The patient is postop day #3 post four-vessel coronary bypass surgery. The surgical report has been removed. This morning, the patient is sitting up on a chair. Nevertheless, there has been some hemodynamic changes and the patient became hypotensive overnight. The patient was initially given 25% of albumin, 50 cc and subsequently the patient was given 5% albumin and total of 500 cc and currently she is receiving another dose of albumin 250 cc of 5% albumin. Dopamine was dropped to 1.5 mcg/kg/min which currently appears to have lower blood pressure and his systolic blood pressure currently is in the mid 80s. Cardiac output and index 3.0 and 1.6 respectively. Pulmonary artery pressures of 34/10. The mixed venous saturation is low at 40. The patient has a right pleural and left lower chest tube. Output from the right ear to 85 cc an hour. Present for 395 L over the past 24 hours. Chest x-ray shows increased pulm vascular markings. Atelectatic change in lung bases. Chest tubes are in good location. No evidence of any air leak in the Pleur-evac. The patient remains on oxygen and 3 L/min nasal cannula. The patient is also on normal citrate of 80 cc an hour. The blood work from today shows a BUN of 66 with a creatinine of 3.6 and the patient has developed interval worsening of renal function. Sodium level is at 131 with a potassium level of 5.1. LFTs are normal. The risk of 9.9 with a hemoglobin of 9.2 and a platelet count of 284. She is awake and alert and communicating. She is afebrile for now. As mentioned, she remains on 3 L of O2 nasal cannula. On 03/01/2024, the patient is being seen for a follow-up. She is sitting up on a chair. The patient was started on Primacor at 0.25 mcg/kg/min and the cardiac output today is at 4.2 with an index of 2.4. PA pressure 34/12. CVP is at 17. She remains on dopamine at 3 mcg/kg/min. She continues to have bilateral chest tube, the right fluid has drained 160 cc over the past 8 hours, 5 and 6 over the past 24 hours, left has drained around 260 cc over the past 8 hours and 650 over the past 24 hours. Chest x-ray still showing postsurgical changes. Chest tubes are in good location. Montezuma-Jamal catheter is in place. Questionable tiny apical pneumothoraces bilaterally. The mixed venous oxygen saturation is improved and is currently up to 57. Limited because of 8.8 with a hemoglobin of 8.7. BUN is 73 with a creatinine of 3.9 and a serum bicarb is at 16. Cardiac rhythm is sinus. Hemodynamically stable and improved while being on Primacor and do pamine. Awake and alert. No other significant events overnight. The patient is postop day #4 Objective - Vital Signs Vital signs: Vital Signs Temp 96.6 F L 03/01/24 08:00 Pulse 63 03/01/24 11:00 Resp 18 03/01/24 11:00 BP 98/56 03/01/24 11:00 Pulse Ox 97 03/01/24 11:00 FiO2 40 02/26/24 16:39 Intake & Output 02/29/24 03/01/24 03/01/24 18:59 06:59 18:59 Intake Total 2940 830.597 628 Output Total 785 890 620 Balance 2155 -59.403 8 Weight 83.9 kg Intake: IV 772 172 90 .9NS Cardiac Output 140 100 60 .9NS Pressure Bag 72 72 30 Albumin Human 5% 250 ml 500 In Empty Bag 1 bag @ 250 mls/hr IVPB Q1HR PRN Rx#: [id number] Lactated Ringers 1,000 ml 60 @ 20 mls/hr IV .Q24H LYNDSAY Rx#:[id number] Intake, IV Titration 1708 658.597 418 Amount Albumin Human 5% 250 ml 250 In Empty Bag 1 bag @ 250 mls/hr IVPB ONCE STA Rx#: [id number] Albumin Human 5% 500 ml 500 In Empty Bag 1 bag @ 500 mls/hr IVPB ONCE ONE Rx#: [id number] Dextrose 5% in Water 100 100 ml @ 618 mls/hr IV .Q10M ONE with Amiodarone 150 mg Rx#:[id number] Dextrose/Water 1 250ml. 40 4 8 bag @ 3 MCG/KG/MIN 4.052 mls/hr IV .Q24H LYNDSAY with DOPamine DRIP 800 mg Rx#: [id number] Milrinone-D5w Pmx 20 mg 18 94.597 In Dextrose/Water 1 100ml .bag @ 0.25 MCG/KG/MIN 5. 993 mls/hr IV .[id number] LYNDSAY Rx#:[id number] Sodium Chloride 0.9% 1, 800 560 210 000 ml @ 50 mls/hr IV . Q20H LYNDSAY Rx#:[id number] Sodium Ferric Gluconat- 100 100 Sucrose 125 mg In Sodium Chloride 0.9% 100 ml @ 100 mls/hr IVPB DAILY LYNDSAY Rx#:[id number] Oral 460 120 Output: Chest Tube Drainage 570 660 490 Left Pleural Chest Tube 335 340 140 Right Pleural Chest Tube 235 320 350 Urine 165 230 130 Emesis 50 Other: Voiding Method Indwelling Catheter Indwelling Catheter ABP, PAP, CO, CI - Last Documented Arterial Blood Pressure 139/47 Pulmonary Artery Pressure 30/12 Cardiac Output 3.4 Cardiac Index 1.8 - Exam GENERAL EXAM: Alert, 58-year-old white female, resting comfortably in bed, the patient is awake and oriented x 3 on 2 L of oxygen by nasal cannula, extubated HEAD: Normocephalic and atraumatic EYES: Normal reaction of pupils, equal size. NOSE: Clear with pink turbinates. THROAT: No erythema or exudates. NECK: No masses, no JVD. CHEST: No chest wall deformity. LUNGS: The patient has a right lower and left lower chest tube. Thoracotomy scar is dry clean and intact. Breath sounds equal and symmetrical bilaterally. CVS: S1 and S2 normal with no audible murmur, regular rhythm. No extra heart sounds ABDOMEN: No hepatosplenomegaly, active bowel sounds, no guarding or rigidity. SPINE: No scoliosis or deformity SKIN: No rashes CENTRAL NERVOUS SYSTEM: No focal deficits, tone is normal in all 4 extremities. EXTREMITIES: There is bilateral lower has equal and symmetrical pulses in the lower extremities bilaterally. The patient has amputation of the right great toe. Extremities are warm. - Labs CBC & Chem 7: 03/01/24 04:54 03/01/24 04:49 Labs: Abnormal Lab Results - Last 24 Hours (Table) 02/29/24 02/29/24 02/29/24 Range/Units 15:15 15:20 17:07 RBC (3.80-5.40) m/uL Hgb (11.4-16.0) gm/dL Hct (34.0-46.0) % ABG pO2 28 L* (83-108) mmHg ABG O2 Saturation 45.3 L (94-97) % Sodium 132 L (137-145) mmol/L Carbon Dioxide 19 L (22-30) mmol/L BUN 71 H (7-17) mg/dL Creatinine 3.57 H (0.52-1.04) mg/dL Glucose 121 H (74-99) mg/dL POC Glucose (mg/dL) 130 H (70-110) mg/dL Plasma Lactic Acid Ketan (0.7-2.0) mmol/L Calcium 7.7 L (8.4-10.2) mg/dL AST 40 H (14-36) U/L Alkaline Phosphatase 171 H (38-126) U/L Total Protein 4.9 L (6.3-8.2) g/dL Albumin 2.6 L (3.5-5.0) g/dL 02/29/24 03/01/24 03/01/24 Range/Units 20:01 04:20 04:49 RBC (3.80-5.40) m/uL Hgb (11.4-16.0) gm/dL Hct (34.0-46.0) % ABG pO2 (83-108) mmHg ABG O2 Saturation (94-97) % Sodium 130 L (137-145) mmol/L Carbon Dioxide 16 L (22-30) mmol/L BUN 73 H (7-17) mg/dL Creatinine 3.92 H (0.52-1.04) mg/dL Glucose 119 H (74-99) mg/dL POC Glucose (mg/dL) 238 H 130 H (70-110) mg/dL Plasma Lactic Acid Ketan (0.7-2.0) mmol/L Calcium 8.1 L (8.4-10.2) mg/dL AST (14-36) U/L Alkaline Phosphatase 157 H (38-126) U/L Total Protein 5.0 L (6.3-8.2) g/dL Albumin 2.8 L (3.5-5.0) g/dL 03/01/24 03/01/24 03/01/24 Range/Units 04:54 06:36 06:41 RBC 2.93 L (3.80-5.40) m/uL Hgb 8.7 L (11.4-16.0) gm/dL Hct 27.8 L (34.0-46.0) % ABG pO2 (83-108) mmHg ABG O2 Saturation (94-97) % Sodium (137-145) mmol/L Carbon Dioxide (22-30) mmol/L BUN (7-17) mg/dL Creatinine (0.52-1.04) mg/dL Glucose (74-99) mg/dL POC Glucose (mg/dL) 123 H (70-110) mg/dL Plasma Lactic Acid Ketan 0.5 L (0.7-2.0) mmol/L Calcium (8.4-10.2) mg/dL AST (14-36) U/L Alkaline Phosphatase (38-126) U/L Total Protein (6.3-8.2) g/dL Albumin (3.5-5.0) g/dL 03/01/24 03/01/24 Range/Units 07:46 11:21 RBC (3.80-5.40) m/uL Hgb (11.4-16.0) gm/dL Hct (34.0-46.0) % ABG pO2 34 L* (83-108) mmHg ABG O2 Saturation 57.4 L (94-97) % Sodium (137-145) mmol/L Carbon Dioxide (22-30) mmol/L BUN (7-17) mg/dL Creatinine (0.52-1.04) mg/dL Glucose (74-99) mg/dL POC Glucose (mg/dL) 242 H (70-110) mg/dL Plasma Lactic Acid Ketan (0.7-2.0) mmol/L Calcium (8.4-10.2) mg/dL AST (14-36) U/L Alkaline Phosphatase (38-126) U/L Total Protein (6.3-8.2) g/dL Albumin (3.5-5.0) g/dL Assessment and Plan Assessment: Multivessel coronary artery disease and the patient is status post acute non-ST elevation CA, the patient underwent four-vessel bypass surgery off-pump which included sequential RUSSO to To the LAD and diagonal and SVG to PDA and second obtuse marginal branch and the patient is currently postop day day # 4 the intra-aortic balloon pump has been removed. The cardiac rhythm is sinus. The patient is on a combination of Primacor and dobutamine. The patient otherwise is slightly improved compared to yesterday. Renal function is slightly worse compared to yesterday. Hemodynamically she is doing better. Producing a amount of urine output. Chest tubes are still in place. Acute hypoxic respiratory failure currently on 3 L of oxygen by nasal cannula Postthoracotomy, currently intubated on the mechanical ventilator. Mediastinal chest tube has been removed. The patient has a right pleural and left lower chest tubes in place. Output from the chest has not been noted. No evidence of any pneumothorax. Ischemic cardiomyopathy with an estimated left ventricular ejection fraction severely impaired at 20 to 25% as well as moderate to severe mitral valve regurgitation Normocytic normochromic anemia, Chronic kidney disease stage III with a component of acute kidney injury. patient also has a component of anion gap metabolic acidosis. Remains on IV fluids and his CVP is currently at 17. Chronic obstructive pulmonary disease, stable Diabetes mellitus type 1, had HbA1c at the time of admission was 7.1 History of hyperlipidemia History of hypertension History of CVA/TIA History of hypothyroidism History of fibromyalgia History of GERD Mildly elevated LFTs, hepatitis panel nonreactive Former tobacco smoker as of 55 days ago, before this 1/2 pack/day or approximately 15-year pack history' Previous history of methamphetamine use Plan: Oxygen at 3 L/min nasal cannula and encourage use of incentive spirometer. Right and left pleural chest tube In place, continue monitoring the output Continue Primacor Continue dopamine which is currently running at 3 mcg/kg/min. R Continue aspirin and Plavix Continue oral amiodarone Patient additional total of 50 mEq of sodium bicarb, IV push has started the patient on oral bicarb supplements Monitor electrolytes hold beta-blockers Keep the beta-blockers on hold Chest x-ray was noted Montezuma-Jamal catheter to be kept in place Levemir insulin 10 units twice daily and this was also placed on hold as the patient's blood sugars have been essentially low this morning. She is only using sliding scale insulin coverage. Pain management Monitor renal function Will continue to follow and make further recommendations based on her progress. Evaluation was done more than 30 minutes. This is coordinated with the cardiothoracic team. Time with Patient: Greater than 30
[2024-03-01] MEDS: DEXTROSE/WATER 1 250ML.BAG with DOPamine DRIP 800 MG IV SCH (13:27)
[2024-03-01] MEDS: DEXTROSE 5% IN WATER 1,000 ML with SODIUM BICARB (1 MEQ/ML) 150 ML IV SCH (13:28)
[2024-03-01 15:40] LABS: Glucose,Whole Blood 217 mg/dL (70-110)
[2024-03-01] MEDS: MIDODRINE 5 MG TAB PO SCH (16:58)
[2024-03-01 20:08] LABS: Glucose,Whole Blood 292 mg/dL (70-110)
[2024-03-01] MEDS: SODIUM BICARBONATE TAB 650 MG TAB PO SCH (20:23)
--- NOTE | 2024-03-02 04:10 | P.PN ---
Subjective Progress Note Date: 03/01/24 This is a pleasant 58 years old female with past medical history of multiple medical problems as below She has been incarcerated for 52 days, there is officer at bedside. Patient presents because of shortness of breath and exertional dyspnea has for the last 2 days, she states she hears herself wheezing when she lies down. Currently she is breathing quietly. She is complaining for mild chest pain on the left side, nonradiating nonspecific, feels much better now and very mild. She has occasional cough but no phlegm. Also she is complaining from upset stomach but no diarrhea or vomiting She complains from decreased urination but no dysuria or urgency. She has mild headache feels generally weak but no dizziness or blurry vision. She used to smoke half pack per day before she got incarcerated No alcohol or illicit drugs. She follow-up with her marker hand Dr. Donal Herrera and manager care management Dr. Babb who examined her about 2 months ago where she has some mild ulcer In the bottom of her right total This morning patient has low-grade fever 100.2 She is also mildly tachypneic around 22 She is saturating 93% on 2 L oxygen via nasal cannula Labs reviewed showing hemoglobin of 7.7, rest of CBC is unremarkable BMP liver enzymes not elevated. INR 0.9. Lactic 0.9 proBNP is elevated 25 100 EKG showing sinus rhythm at [address]-T changes, no left bundle branch block 02/17/2024 --Patient is seen and evaluated in room at bedside; remains on Lasix drip, remains in negative fluid balance - patient underwent cardiac catheterization which revealed severe triple-vessel coronary artery disease and now she is being evaluated for possible myocardial revascularization. Patient remains on oxygen at 2 L/min and her O2 sats is 97%, her PFT showed severe obstructive lung disease, however not severe enough to not consider myocardial revascularization if the patient is cleared by other consultants including nephrology and cardiology. Patient has been a smoker over the years, she had at least a [id number] smoking history. Remind you patient had a PFT with chest x-ray still showing evidence of pulmonary edema which will definitely compromise her PFT will likely reflect more restriction than obstructive lung disease. WBC count today is 4.9 hemoglobin 7.7 electrolytes are normal BUN is 85 creatinine 3.59 02/18/2024 Patient is seen and evaluated in room at bedside; sitting up in bed; ports stabl e breathing - patient underwent AFRICA which revealed aortic valve tricuspid and functioning normally. Mitral valve structurally normal with mild central secondary mitral regurgitation. Pulmonary vein flow has systolic dominance. Tricuspid valve appears to be normal with mild tricuspid regurgitation. Intra-atrial septum is intact with no evidence of PFO. Left atrial appendage free of clot. LV EF 35% with global hypokinesis. -- Patient is followed by cardiothoracic surgery and also nephrology. Nephrology not recommending any indication or need for hemodialysis. Patient remains on Lasix drip per nephrology. Patient has a negative fluid balance of 1322. Repeat blood work reveals hemoglobin is 7.9. BUN 82 creatinine 3.39. Mild elevation in liver function test. -Plan for surgery once clinically optimized 02/19/2024 Patient looks more awake than admission, sitting up in bed. Assisted officers at bedside Mentation at baseline. She talks freely. Denies chest pain or dyspnea at rest On presentation patient was found acute CHF and non-STEMI, workup showing triple-vessel coronary artery disease and patient will require bypass procedure with cardiothoracic surgery team on the case once medically optimized. Patient currently with fluid overload on Lasix drip, on admission it was 5 mg/h, currently increased to 10 mg/h. She is making around 1 L of urine output by yesterday. Saldaña catheter in place. She is also on aspirin 81 mg Hemoglobin 8.5, creatinine 3.3 compared to 2.7 on admission with baseline 0.9- 1.2. Liver enzymes mildly elevated since admission. 02/20/2024 Patient came from detention for an NSTEMI. Workup showing severe triple-vessel coronary artery disease currently being evaluated by cardiothoracic surgery team for possible cardiac bypass procedure. However she needs optimization and she is currently kept on IV Lasix 10 mg, creatinine went up 3.3 today. Furnace Attendant recommended to continue with Lasix drip still tomorrow Patient diabetic, she is on Levemir 8 units twice daily, she is developing episodes of hypoglycemia we will going to lower the dose to 6 units twice daily She is also on aspirin 325 mg 02/21/2024 Patient continues to improve today, she is more energetic, less dyspneic Lasix drip switched to IV Lasix 60 mg twice daily Cardiothoracic surgery team with plan for valve replacement surgery on this coming Sunday 02/25 Sugars better controlled with no hyperglycemia on Levemir 6 units twice daily 02/22/2024 Patient breathing is stable, denies chest pain No new complaint Will go check breathing tomorrow Plan for cardiac surgery on Monday02/23/2024 Patient awake alert She feels more weak today Creatinine is up Plan for cardiac surgery early next week 02/24/2024 Patient feels weak No chest pain or dyspnea Patient anticipates surgery on Monday chief sales officer at bedside 02/25/2024 Patient awake alert looks comfortable Generally weak Creatinine stable around 3.2 Plan for bypass cardiac surgery tomorrow, patient is agreeable to the current plan 02/26/2024 Patient is seen in follow-up today for coronary [facility] Patient currently n.p.o. and preop. Will await surgical report. 02/27/2024 Patient is seen in follow-up this morning currently in the ICU with multiple medical consultations following. Patient is status post bypass yesterday currently maintained on 4 L via nasal cannula. Patient is reporting some shortness of breath although biggest concern is severe nausea. Patient is maintained on Reglan and Zofran as needed. Will make Reglan scheduled. Patient did have mediastinal chest tube removed and was taken off balloon pump most recently this morning. Patient continues on insulin drip and will continue monitoring sugars closely continue with current regimen and will transition off insulin drip once patient nausea is improved and tolerating diet. Patient is afebrile at this time. 02/28/2024 Patient is seen in follow-up today currently sitting up in the chair tolerating ice chips. Patient reports continues with intermittent nausea although significantly improved. Patient remains on 2 L and has been working on incentive spirometer. Encouraged at least 10 times every hour while awake. Patient was on insulin drip with history of diabetes and being transition to sliding scale. Patient was given a dose of long-acting and will make twice daily and recommend monitoring Accu-Cheks before meals and at bedtime and 2 AM for tight glycemic control. Kidney functions are stable with nephrology following. 02/29/2024 Patient is seen in follow-up continues in the ICU with multiple medical consultations following. Patient is currently hypotensive medications being adjusted and patient is receiving albumin. Patient reports to feeling exhausted and not sleeping very well. Patient's blood sugars being adjusted and using sliding scale. Continue with Levemir twice daily and will adjust accordingly. Blood sugars have been on the lower side and not requiring long-acting. Patient not eating much and continues with some nausea. 03/01/2024 Patient is seen in follow-up in the ICU currently sitting up in the chair. Patient remains on dopamine and also has been started on milrinone. Patient continues with some nausea although able to tolerate a little more intake and blood sugars have been elevated during the day will increase long-acting and continue with sliding scale and Accu-Cheks before meals and at bedtime. Patient continues with chest tubes as well as swans catheter at this time. Patient has been encouraged to continue using incentive spirometer at least 10 times every hour while awake. Recommend PT/OT therapy daily as patient is significantly weak and has had prolonged hospitalization. Review of systems: Constitutional: No reports of fatigue today, no fever, or chills Cardiovascular: reports of chest wall pain Respiratory: reports of shortness of breath with exertion, occasional cough GI: reports of intermittent nausea and improving, no vomiting, or diarrhea : No reports of dysuria or retention Neurovascular: reports of generalized weakness All medications have been reviewed Active Medications Acetaminophen (Acetaminophen Tab 325 Mg Tab) 650 mg PO Q4HR PRN PRN Reason: Fever and/ or Pain Hydrocodone Bitart/Acetaminophen (Hydrocodone/Apap 5-325mg 1 Each Tab) 1 each PO Q4HR PRN PRN Reason: Mild to Moderate Pain (1 - 6) Last Admin: 03/02/24 04:03 Dose: 1 each Hydrocodone Bitart/Acetaminophen (Hydrocodone/Apap 10-325mg 1 Each Tab) 1 each PO Q4HR PRN PRN Reason: Severe Pain (Scale 7 to 10) Last Admin: 03/01/24 16:18 Dose: 1 each Albuterol/Ipratropium (Ipratropium-Albuterol 3 Ml Neb) 3 ml INHALATION RT-Q2H PRN PRN Reason: Shortness Of Breath Or Wheezing Albuterol/Ipratropium (Ipratropium-Albuterol 3 Ml Neb) 3 ml INHALATION RT-QID [facility] Last Admin: 03/01/24 19:36 Dose: Not Given Amiodarone HCl (Amiodarone 200 Mg Tab) 400 mg PO BID [facility] Last Admin: 03/01/24 20:23 Dose: 400 mg Aspirin (Aspirin 325 Mg Tab) 325 mg PO DAILY [facility] Last Admin: 03/01/24 08:40 Dose: 325 mg Atorvastatin Calcium (Atorvastatin 40 Mg Tab) 40 mg PO DAILY [facility] Last Admin: 03/01/24 08:40 Dose: 40 mg Benzocaine/Menthol (Benzocaine/Menthol Lozeng 1 Each Lozenge) 1 each MUCOUS MEM Q2H PRN PRN Reason: Sore Throat Last Admin: 02/29/24 01:41 Dose: 1 each Bisacodyl (Bisacodyl 10 Mg Supp) 10 mg RECTAL DAILY PRN PRN Reason: Constipation Budesonide/Formoterol Fumarate (Symbicort 160-4.5 Mcg Inhaler) 2 puff INHALATION RT-BID [facility] Last Admin: 03/01/24 19:36 Dose: Not Given Clopidogrel Bisulfate (Clopidogrel 75 Mg Tab) 75 mg PO DAILY [facility] Last Admin: 03/01/24 08:40 Dose: 75 mg Dextrose/Water (Dextrose 50% Syringe 50 Ml) 25 ml IVP PER PROTOCOL PRN; Protocol PRN Reason: Hypoglycemia Dextrose/Water (Dextrose 50% Syringe 50 Ml) 50 ml IVP PER PROTOCOL PRN; Protocol PRN Reason: Hypoglycemia Heparin Sodium (Porcine) (Heparin Sodium,Porcine 5,000 Unit/Ml 1 Ml Vial) 5,000 unit SQ Q8HR [facility] Last Admin: 03/02/24 00:38 Dose: 5,000 unit Hydralazine HCl (Hydralazine Hcl 10 Mg Tab) 20 mg PO Q6H [facility] Last Admin: 03/02/24 02:03 Dose: Not Given Amiodarone HCl 150 mg/ (Dextrose/Water) 103 mls @ 618 mls/hr IV .Q10M PRN PRN Reason: A.FIB/FLUTTER Calcium Gluconate/Sodium (Chloride 2 gm/ IV Solution) 100 mls @ 100 mls/hr IVPB ONCE PRN PRN Reason: Ionized Calcium less than 4.4 Stop: 03/08/24 13:53 Ferric Sodium Gluconate 125 mg (/ Sodium Chloride) 110 mls @ 100 mls/hr IVPB DAILY [facility] Stop: 03/02/24 11:01 Last Admin: 03/01/24 08:39 Dose: 100 mls/hr Milrinone Lactate/Dextrose 20 (mg/ IV Solution) 100 mls @ 5.993 mls/hr IV .[id number] [facility] Last Admin: 03/02/24 00:38 Dose: 0.25 mcg/kg/min, 5.993 mls/hr Sodium Bicarbonate 150 ml/ (Dextrose/Water) 1,150 mls @ 50 mls/hr IV .Q23H [facility] Last Admin: 03/01/24 13:28 Dose: 50 mls/hr Dopamine HCl/Dextrose 800 mg/ (IV Solution) 250 mls @ 3.933 mls/hr IV .Q24H [facility] Last Admin: 03/01/24 13:27 Dose: 3.933 mls/hr Insulin Aspart (Insulin Aspart (Novolog) 100 Unit/Ml Vial) 0 unit SQ ACHS [facility]; Protocol Last Admin: 03/01/24 21:30 Dose: 4 unit Insulin Detemir (Insulin Detemir (Levemir) 100 Unit/Ml Syr) 15 unit SQ BID@0700,2100 [facility] Levothyroxine Sodium (Levothyroxine 88 Mcg Tab) 176 mcg PO DAILY@0630 [facility] Last Admin: 03/01/24 06:49 Dose: 176 mcg Metoclopramide HCl (Metoclopramide 5 Mg/Ml 2 Ml Vial) 5 mg IVP Q6HR PRN PRN Reason: Nausea And Vomiting Last Admin: 03/01/24 21:02 Dose: 5 mg Metoprolol Tartrate (Metoprolol Tartrate 12.5 Mg Tab) 12.5 mg PO BID [facility] Last Admin: 03/01/24 20:23 Dose: 12.5 mg Midodrine (Midodrine 5 Mg Tab) 10 mg PO AC-TID [facility] Last Admin: 03/01/24 16:58 Dose: 10 mg Miscellaneous Information (Magnesium Replacement Protocol 1 Each Misc) 1 each MISCELLANE DAILY PRN; Protocol PRN Reason: Per Protocol Miscellaneous Information (Potassium Replacement Protocol 1 Each Misc) 1 each MISCELLANE DAILY PRN; Protocol PRN Reason: Per Protocol Miscellaneous Information (Phosphorus Replacement Protoco 1 Each Misc) 1 each MISCELLANE DAILY PRN; Protocol PRN Reason: Per Protocol Ondansetron HCl (Ondansetron 4 Mg/2 Ml Vial) 4 mg IVP Q6HR PRN PRN Reason: Nausea And Vomiting Last Admin: 03/01/24 16:59 Dose: 4 mg Pantoprazole Sodium (Pantoprazole 40 Mg Tablet) 40 mg PO AC-BRKFST [facility] Last Admin: 03/01/24 06:49 Dose: 40 mg Senna/Docusate Sodium (Sennosides-Docusate Sodium 1 Each Tab) 2 each PO HS [facility] Last Admin: 03/01/24 20:22 Dose: 2 each Sodium Bicarbonate (Sodium Bicarbonate Tab 650 Mg Tab) 650 mg PO BID [facility] Last Admin: 03/01/24 20:23 Dose: 650 mg Sodium Chloride (Sodium Chloride 0.9% Flush 10 Ml Syringe) 10 ml IV BID [facility] Last Admin: 03/01/24 20:24 Dose: 10 ml Physical exam: GENERAL: The patient is alert and oriented x3, pale, currently sitting up in the chair well developed, thin built. Generally weak, elderly appearing HEENT: Pupils are round and equally reacting to light. EOMI. No scleral icterus. No conjunctival pallor. Normocephalic, atraumatic. No pharyngeal erythema. No thyromegaly. CARDIOVASCULAR: S1 and S2 muffled, heart hugger noted PULMONARY: Diminished breath sounds bilaterally otherwise chest is clear to au scultation, no wheezing , faint crackles. Tachypnea ABDOMEN: Soft, nontender, nondistended, normoactive bowel sounds. No palpable organomegaly. Saldaña catheter in place MUSCULOSKELETAL: No joint swelling or deformity. EXTREMITIES: No cyanosis, clubbing, 1+ bilateral pitting leg edema. NEUROLOGICAL: Gross neurological examination did not reveal any focal deficits. Diffusely weak SKIN: No rashes. no petechiae. Pale Assessment: Acute systolic CHF exacerbation, ejection fraction: 20 to 25% non-STEMI, ekg New left bundle branch block, secondary to triple-vessel coronary artery disease status post CABG, postop day 3. Mild hypoxic respiratory failure, improving Acute kidney injury on chronic kidney disease, nonoliguric Acute on chronic anemia of chronic disease Acute urinary tract infection, urine culture showing skin or genital kwesi. Resolved Diabetes mellitus, type II, uncontrolled with hyper and hypoglycemia Continued ongoing nicotine dependence Chronic ulcers of the right big toe Chronic kidney disease stage II with acute kidney injury GI prophylaxis DVT prophylaxis Full code Plan: Cardiothoracic surgery team following as attending and patient is status post bypass procedure and off balloon pump . Mediastinal chest tube removed, daily chest x-ray ordered and difficult to exclude tiny pneumothoraces, continue chest tube for now Patient was maintained on insulin drip and has been transitioned to sliding scale along with long-acting. Blood sugars elevated during the day and will increase long-acting and continue with sliding scale as well Continue with anti-nausea medications as needed and small frequent meals, continue with supplements between meals Nephrology following and kidney functions are stable and being closely monitored. Patient continues with indwelling Saldaña catheter for strict intake and output monitoring Patient is continued on dopamine and weaning, started on milrinone today Incentive spirometer at the bedside encouraged the patient to use at least 10 times every hour while awake We will continue to follow with cardiothoracic surgery during hospitalization. Due to multiple complex medical issues, overall prognosis is guarded The impression and plan of care has been dictated by Mandy Granda, Nurse Practitioner as directed. Dr. Andrzej MD I have performed a history and examination and MDM of this patient, discussed th e same with the dictator, and agree with the dictator's assessment and plan as written ,documented as a scribe. Based on total visit time, I have performed more than 50% of the visit. Objective - Vital Signs Vital signs: Vital Signs Temp 97.2 F L 03/01/24 14:01 Pulse 70 03/01/24 15:00 Resp 18 03/01/24 15:00 BP 90/50 03/01/24 15:00 Pulse Ox 96 03/01/24 15:00 FiO2 40 02/26/24 16:39 Intake & Output 02/29/24 03/01/24 03/01/24 18:59 06:59 18:59 Intake Total 2940 830.597 970 Output Total 735 890 945 Balance 2205 -59.403 25 Weight 83.9 kg Intake: IV 772 172 148 .9NS Cardiac Output 140 100 100 .9NS Pressure Bag 72 72 48 Albumin Human 5% 250 ml 500 In Empty Bag 1 bag @ 250 mls/hr IVPB Q1HR PRN Rx#: [id number] Lactated Ringers 1,000 ml 60 @ 20 mls/hr IV .Q24H [facility] Rx#:[id number] Intake, IV Titration 1708 658.597 582 Amount Albumin Human 5% 250 ml 250 In Empty Bag 1 bag @ 250 mls/hr IVPB ONCE STA Rx#: [id number] Albumin Human 5% 500 ml 500 In Empty Bag 1 bag @ 500 mls/hr IVPB ONCE ONE Rx#: [id number] Dextrose 5% in Water 1, 50 000 ml @ 50 mls/hr IV . Q23H [facility] with Sodium Bicarb (1 Meq/ml) 150 ml Rx#:[id number] Dextrose 5% in Water 100 100 ml @ 618 mls/hr IV .Q10M ONE with Amiodarone 150 mg Rx#:[id number] Dextrose/Water 1 250ml. 4 bag @ 2.5 MCG/KG/MIN 3. 933 mls/hr IV .Q24H [facility] with DOPamine DRIP 800 mg Rx#:[id number] Dextrose/Water 1 250ml. 40 4 8 bag @ 3 MCG/KG/MIN 4.052 mls/hr IV .Q24H [facility] with DOPamine DRIP 800 mg Rx#: [id number] Milrinone-D5w Pmx 20 mg 18 94.597 In Dextrose/Water 1 100ml .bag @ 0.25 MCG/KG/MIN 5. 993 mls/hr IV .[id number] [facility] Rx#:[id number] Sodium Chloride 0.9% 1, 800 560 320 000 ml @ 50 mls/hr IV . Q20H [facility] Rx#:[id number] Sodium Ferric Gluconat- 100 100 Sucrose 125 mg In Sodium Chloride 0.9% 100 ml @ 100 mls/hr IVPB DAILY [facility] Rx#:[id number] Oral 460 240 Output: Chest Tube Drainage 570 660 780 Left Pleural Chest Tube 335 340 290 Right Pleural Chest Tube 235 320 490 Urine 165 230 165 Other: Voiding Method Indwelling Catheter Indwelling Catheter Indwelling Catheter ABP, PAP, CO, CI - Last Documented Arterial Blood Pressure 139/47 Pulmonary Artery Pressure 26/12 Cardiac Output 3.7 Cardiac Index 2 - Labs CBC & Chem 7: 03/01/24 04:54 03/01/24 04:49 Labs: Abnormal Lab Results - Last 24 Hours (Table) 02/29/24 02/29/24 03/01/24 Range/Units 17:07 20:01 04:20 RBC (3.80-5.40) m/uL Hgb (11.4-16.0) gm/dL Hct (34.0-46.0) % ABG pO2 (83-108) mmHg ABG O2 Saturation (94-97) % Sodium (137-145) mmol/L Carbon Dioxide (22-30) mmol/L BUN (7-17) mg/dL Creatinine (0.52-1.04) mg/dL Glucose (74-99) mg/dL POC Glucose (mg/dL) 130 H 238 H 130 H (70-110) mg/dL Plasma Lactic Acid Ketan (0.7-2.0) mmol/L Calcium (8.4-10.2) mg/dL Alkaline Phosphatase (38-126) U/L Total Protein (6.3-8.2) g/dL Albumin (3.5-5.0) g/dL 03/01/24 03/01/24 03/01/24 Range/Units 04:49 04:54 06:36 RBC 2.93 L (3.80-5.40) m/uL Hgb 8.7 L (11.4-16.0) gm/dL Hct 27.8 L (34.0-46.0) % ABG pO2 (83-108) mmHg ABG O2 Saturation (94-97) % Sodium 130 L (137-145) mmol/L Carbon Dioxide 16 L (22-30) mmol/L BUN 73 H (7-17) mg/dL Creatinine 3.92 H (0.52-1.04) mg/dL Glucose 119 H (74-99) mg/dL POC Glucose (mg/dL) (70-110) mg/dL Plasma Lactic Acid Ketan 0.5 L (0.7-2.0) mmol/L Calcium 8.1 L (8.4-10.2) mg/dL Alkaline Phosphatase 157 H (38-126) U/L Total Protein 5.0 L (6.3-8.2) g/dL Albumin 2.8 L (3.5-5.0) g/dL 03/01/24 03/01/24 03/01/24 Range/Units 06:41 07:46 11:21 RBC (3.80-5.40) m/uL Hgb (11.4-16.0) gm/dL Hct (34.0-46.0) % ABG pO2 34 L* (83-108) mmHg ABG O2 Saturation 57.4 L (94-97) % Sodium (137-145) mmol/L Carbon Dioxide (22-30) mmol/L BUN (7-17) mg/dL Creatinine (0.52-1.04) mg/dL Glucose (74-99) mg/dL POC Glucose (mg/dL) 123 H 242 H (70-110) mg/dL Plasma Lactic Acid Ketan (0.7-2.0) mmol/L Calcium (8.4-10.2) mg/dL Alkaline Phosphatase (38-126) U/L Total Protein (6.3-8.2) g/dL Albumin (3.5-5.0) g/dL 03/01/24 Range/Units 15:39 RBC (3.80-5.40) m/uL Hgb (11.4-16.0) gm/dL Hct (34.0-46.0) % ABG pO2 (83-108) mmHg ABG O2 Saturation (94-97) % Sodium (137-145) mmol/L Carbon Dioxide (22-30) mmol/L BUN (7-17) mg/dL Creatinine (0.52-1.04) mg/dL Glucose (74-99) mg/dL POC Glucose (mg/dL) 217 H (70-110) mg/dL Plasma Lactic Acid Ketan (0.7-2.0) mmol/L Calcium (8.4-10.2) mg/dL Alkaline Phosphatase (38-126) U/L Total Protein (6.3-8.2) g/dL Albumin (3.5-5.0) g/dL
[2024-03-02 04:19] LABS: HCT 27.4 % (34.0-46.0); HGB 8.6 gm/dL (11.4-16.0); Hypochromasia Slight; MCH 29.8 pg (25.0-35.0); MCHC 31.3 g/dL (31.0-37.0); MCV 95.2 fL (80.0-100.0); Mean Platelet Volume 8.5; Platelet Count 326 k/uL (150-450); RBC 2.88 m/uL (3.80-5.40); RDW 14.2 % (11.5-15.5); WBC 7.7 k/uL (3.8-10.6)
[2024-03-02 04:36] LABS: ALT 6 U/L (4-34); AST 23 U/L (14-36); African American GFR (CKD) 13 (>60 ml/min/1.73 sqM); Albumin 2.5 g/dL (3.5-5.0); Alkaline Phosphatase 144 U/L (38-126); Anion Gap 11 mmol/L; Blood Urea Nitrogen 78 mg/dL (7-17); Carbon Dioxide 18 mmol/L (22-30); Chloride 101 mmol/L (98-107); Glucose 214 mg/dL (74-99); Non-African American GFR(CKD) 11 (>60 ml/min/1.73 sqM); Potassium 4.5 mmol/L (3.5-5.1); Sodium 130 mmol/L (137-145); Total Bilirubin 0.3 mg/dL (0.2-1.3); Total Protein 4.9 g/dL (6.3-8.2)
[2024-03-02 07:02] LABS: Glucose,Whole Blood 214 mg/dL (70-110)
[2024-03-02] MEDS ORDERED: CALCIUM CHLORIDE 1 GM in SODIUM CHLORIDE 0.9% 50 ML IVPB ONE (07:19)
--- NOTE | 2024-03-02 07:23 | XR ---
EXAMINATION TYPE: XR chest 1V portable DATE OF EXAM: 03/02/2024 COMPARISON: 03/01/2024 INDICATION: Postop CABG TECHNIQUE: Single frontal view of the chest is obtained. FINDINGS: The heart size is normal. The pulmonary vasculature is normal. [place] catheter tip is in the main pulmonary artery region. . Mild increased lung markings are at the bilateral lung bases. Correlate for volume overload or atelec tasis. Bilateral chest tubes are present. No pneumothorax is evident. IMPRESSION: 1. Mild increased lung markings at the lung bases. Color provided overload or atelectasis. 2. Bilateral chest tubes and a [place] catheter.
[2024-03-02] MEDS: DEXTROSE/WATER 1 250ML.BAG with DOPamine DRIP 800 MG IV SCH (07:45)
[2024-03-02] MEDS: INSULIN DETEMIR (LEVEMIR) 100 UNIT/ML SYR SQ SCH ×2 (08:19→20:20)
[2024-03-02] MEDS: CALCIUM GLUCONATE IN NACL 1 GM in SALINE 1 100ML.BAG IVPB ONE (08:19)
--- NOTE | 2024-03-02 08:52 | P.PN ---
Subjective Progress Note Date: 03/02/24 Principal diagnosis: Triple-vessel coronary artery disease, non-STEMI this admission, acute systolic heart failure with reduced ejection fraction 35%, new onset ischemic cardiomyop athy, mild mitral valve regurgitation on [place], acute on chronic kidney disease, acute anemia. History of hypertension, hyperlipidemia, hypothyroid, diabetes mellitus, CVA, hepatitis as a child, CKD stage IV, previous tobacco dependence with recent cessation, severe COPD, previous methamphetamine use with recent cessation, family history of coronary artery disease. POD #5 Off-pump CABG x 4 with sequential left internal mammary artery to left anterior descending coronary artery and diagonal coronary artery, reverse saphenous vein graft's to the posterior descending coronary artery and second o btuse marginal coronary artery, closure of the left atrial appendage with 35mm AtriCure clip, placement of percutaneous right femoral intra-aortic balloon pump, transesophageal echocardiogram performed by anesthesia. Postoperative acute blood loss anemia, expected secondary to hemodilution and preoperative anemia. Postoperative paroxysmal atrial fibrillation, a known common occurrence after cardiac surgery, not a complication. The patient was seen and examined in follow-up today March 02, 2024 at her bedside in the intensive care unit. She is currently sitting up to the bedside chair, is awake, alert, oriented x 3 and is in no acute apparent distress. She denies any complaints of shortness of breath, pain or nausea at that time. The patient states this is the best she is felt since her surgery. Oxygen saturations are 97% on 2 L nasal cannula and she is achieving 1000 mL on her incentive spirometry with encouragement. Bedside telemetry is showing normal sinus rhythm heart rate 75 bpm, she did have an episode of paroxysmal atrial fibrillation, with no further episodes of atrial fibrillation reported. Right IJ [place] catheter and Cordis remains in place with current hemodynamic showing a cardiac output 4.3, cardiac index 2.3, PA pressures 32/12, CVP 12 mmHg and SVR 1500. Primacor drip is infusing at 0.25 mcg/kg/min and dopamine drip is infusing at 2.5 mcg/kg/min.. Left and right pleural chest tubes remain in place to low continuous wall suction -20 cm H2O. No air leak is present. Left pleural chest tube drained 260 mL of thin serosanguineous drainage in the last 8 hours and 700 mL in the last 24 hours. Right pleural chest tube drained 320 mL output in the last 8 hours of thin serosanguineous drainage and 1020 mL output in the last 24 hours. Saldaña catheter remains in place for accurate I's and O's, urine output has been marginal in the last 8 hours with 125 mL output and 365 mL output in the last 24 hours. The patient was started on D5W with 3 Amps of sodium bicarbonate infusing at 50 mL/h yesterday by nephrology. The patient reports she was up ambulating in the intensive care unit hallway yesterday with standby assistance from nursing and therapy staff and tolerated well. She reports she is fairly weak but feels she is progressing. Chest x-ray and laboratory results reviewed. Objective - Vital Signs Vital signs: Vital Signs Temp 97.0 F L 03/02/24 00:00 Pulse 71 03/02/24 07:00 Resp 14 03/02/24 07:00 BP 124/68 03/02/24 07:00 Pulse Ox 97 03/02/24 07:00 FiO2 40 02/26/24 16:39 Intake & Output 03/01/24 03/02/24 03/02/24 18:59 06:59 18:59 Intake Total 1290 366 6 Output Total 1245 675 185 Balance 45 -309 -179 Weight 85.9 kg Intake: IV 212 202 6 .9NS Cardiac Output 140 130 .9NS Pressure Bag 72 72 6 Intake, IV Titration 838 164 Amount Dextrose 5% in Water 1, 250 50 000 ml @ 50 mls/hr IV . Q23H LYNDSAY with Sodium Bicarb (1 Meq/ml) 150 ml Rx#:[id number] Dextrose 5% in Water 100 100 ml @ 618 mls/hr IV .Q10M ONE with Amiodarone 150 mg Rx#:[id number] Dextrose/Water 1 250ml. 20 4 bag @ 2.5 MCG/KG/MIN 3. 933 mls/hr IV .Q24H LYNDSAY with DOPamine DRIP 800 mg Rx#:[id number] Dextrose/Water 1 250ml. 8 bag @ 3 MCG/KG/MIN 4.052 mls/hr IV .Q24H LYNDSAY with DOPamine DRIP 800 mg Rx#: [id number] Milrinone-D5w Pmx 20 mg 100 In Dextrose/Water 1 100ml .bag @ 0.25 MCG/KG/MIN 5. 993 mls/hr IV .[id number] LYNDSAY Rx#:[id number] Sodium Chloride 0.9% 1, 360 10 000 ml @ 50 mls/hr IV . Q20H LYNDSAY Rx#:[id number] Sodium Ferric Gluconat- 100 Sucrose 125 mg In Sodium Chloride 0.9% 100 ml @ 100 mls/hr IVPB DAILY LYNDSAY Rx#:[id number] Oral 240 Output: Chest Tube Drainage 1040 530 170 Left Pleural Chest Tube 400 250 70 Right Pleural Chest Tube 640 280 100 Urine 205 145 15 Other: Voiding Method Indwelling Catheter Indwelling Catheter ABP, PAP, CO, CI - Last Documented Arterial Blood Pressure 139/47 Pulmonary Artery Pressure 29/10 Cardiac Output 4.3 Cardiac Index 2.3 - Exam CONSTITUTIONAL: Sitting up to the bedside chair in the intensive care unit, appears comfortable, cooperative, no apparent acute distress. HEENT: Neck is supple, no JVD, no lymphadenopathy. Right IJ [place] and [place] catheter in place and functioning. RESPIRATORY: Lungs sounds essentially clear throughout, diminished to her bilateral bases. Respirations are symmetrical and nonlabored. Currently on 2 L nasal cannula with oxygen saturations 97%. Able to achieve 1000 mL on her incentive spirometry. Strong cough. CARDIOVASCULAR: Regular rhythm and rate. S1 and S2 present, negative for S3, gallop or murmur. Bedside telemetry showing normal sinus rhythm heart rate 75 bpm. Sternum is stable. Palpable peripheral pulses bilaterally. No calf pain or tenderness noted. Heart hugger in place with patient demonstrating appropriate use. Knee-high CRISTOBAL hose and sequential compression devices in place to his bilateral lower extremities. GASTROINTESTINAL: Abdomen soft, nontender, nondistended. Active bowel sounds present 4 quadrants. Passing flatus. No guarding or rigidity. Tolerating f ull liquid diet. GENITOURINARY: Saldaña present draining clear, yellow urine. Marginal urine output with 125 mL output in the last 8 hours. INTEGUMENTARY: Skin is warm and dry with no evidence of clubbing or cyanosis. Midline sternal incision clean dry and well approximated, covered with dry intac t dressing. Left lower extremity EVH sites well approximated without redness or drainage. NEUROLOGIC: Cranial nerves II through XII intact. No focal deficits. MUSKULOSKELETAL: Able to move all extremities, strength equal bilaterally, generalized weakness. PSYCHIATRIC: Alert and oriented to person place and time, appropriate affect, intact judgment and insight. INVASIVE LINES AND TUBES: Left/right pleural chest tubes present and connected to low continuous wall suction, no air leaks present. Right internal jugular [place], line present. Left pleural chest tube drained 260 mL of thin serosanguineous drainage in the last 8 hours and 700 mL in the last 24 hours. Right pleural chest tube drained 320 mL of thin serosanguineous drainage in the last 8 hours and 1020 mL in the last 24 hours. Current CO 4.3, CI 2.3, PA 32/12 and CVP 12 mmHg, and SVR to 1500. - Allied health notes Allied health notes reviewed: nursing - Labs CBC & Chem 7: 03/02/24 03:43 03/02/24 03:43 Labs: Abnormal Lab Results - Last 24 Hours (Table) 03/01/24 03/01/24 03/01/24 Range/Units 06:36 11:21 15:39 RBC (3.80-5.40) m/uL Hgb (11.4-16.0) gm/dL Hct (34.0-46.0) % Sodium (137-145) mmol/L Carbon Dioxide (22-30) mmol/L BUN (7-17) mg/dL Creatinine (0.52-1.04) mg/dL Glucose (74-99) mg/dL POC Glucose (mg/dL) 242 H 217 H (70-110) mg/dL Plasma Lactic Acid Ketan 0.5 L (0.7-2.0) mmol/L Calcium (8.4-10.2) mg/dL Alkaline Phosphatase (38-126) U/L Total Protein (6.3-8.2) g/dL Albumin (3.5-5.0) g/dL 03/01/24 03/02/24 03/02/24 Range/Units 20:07 03:43 03:43 RBC 2.88 L (3.80-5.40) m/uL Hgb 8.6 L (11.4-16.0) gm/dL Hct 27.4 L (34.0-46.0) % Sodium 130 L (137-145) mmol/L Carbon Dioxide 18 L (22-30) mmol/L BUN 78 H (7-17) mg/dL Creatinine 4.20 H (0.52-1.04) mg/dL Glucose 214 H (74-99) mg/dL POC Glucose (mg/dL) 292 H (70-110) mg/dL Plasma Lactic Acid Ketan (0.7-2.0) mmol/L Calcium 8.0 L (8.4-10.2) mg/dL Alkaline Phosphatase 144 H (38-126) U/L Total Protein 4.9 L (6.3-8.2) g/dL Albumin 2.5 L (3.5-5.0) g/dL 03/02/24 Range/Units 07:00 RBC (3.80-5.40) m/uL Hgb (11.4-16.0) gm/dL Hct (34.0-46.0) % Sodium (137-145) mmol/L Carbon Dioxide (22-30) mmol/L BUN (7-17) mg/dL Creatinine (0.52-1.04) mg/dL Glucose (74-99) mg/dL POC Glucose (mg/dL) 214 H (70-110) mg/dL Plasma Lactic Acid Ketan (0.7-2.0) mmol/L Calcium (8.4-10.2) mg/dL Alkaline Phosphatase (38-126) U/L Total Protein (6.3-8.2) g/dL Albumin (3.5-5.0) g/dL - Imaging and Cardiology Chest x-ray: report reviewed, image reviewed Assessment and Plan Assessment: Triple-vessel coronary artery disease, non-STEMI this admission, status post four-vessel off-pump coronary artery bypass grafting surgery Acute systolic heart failure with reduced ejection fraction, 20-25%, 35% on [place] New onset ischemic cardiomyopathy Moderate to severe mitral regurgitation on transthoracic echocardiogram, mild mitral regurgitation on [place] Acute on chronic kidney disease Acute anemia Hypertension Hyperlipidemia, treated, cholesterol 150, LDL 72.8 Hypothyroid, TSH 1.73 Diabetes mellitus, hemoglobin A1c 7.1% CVA Hepatitis as a child Chronic kidney disease Previous tobacco dependence with recent cessation Severe COPD, preoperative FEV1 27% of predicted Previous methamphetamine use with recent cessation Family history of coronary artery disease with sister having multiple stents Postoperative acute blood loss anemia, expected given hemodilution and preoperative anemia Postoperative paroxysmal atrial fibrillation, a known common occurrence after cardiac surgery, not a complication Plan: Continue to maximize medical therapy with aspirin, statin, Plavix, and beta-alex. Will increase beta-alex as tolerated. Continue hydralazine for afterload reduction, with hold parameters. Continue dopamine drip at 2 mcg/kg/min. Continue Primacor drip at 0.25 mcg/kg/min. Continue midodrine 10 mg p.o. 3 times daily for blood pressure support. Continue oral amiodarone for atrial fibrillation prophylaxis, bedside telemetry showing normal sinus rhythm. Wean O2 as tolerated. Encourage incentive spirometry use 10 times every hour while awake. Bronchodilators per pulmonology. Increase activity, ambulate as tolerated. PT/OT/cardiac rehab following. Will monitor daily labs and chest x-rays. Electrolyte replacement per protocol. GI/DVT prophylaxis. Pain control per current medication regimen. Avoid Toradol due to kidney failure. Avoid nephrotoxic agents. Insulin management per internal medicine. Continue pleural chest tubes for another 24 hours and monitor output. Continue Saldaña catheter for another 24 hours, continue to record strict accurate intake and output. Keep [place] catheter in place with hemodynamic monitoring. D5 W with 3 A of bicarb has been discontinued, give 2 A of sodium bicarbonate x 1 now. Albumin 25% 100 mL x 1 now followed by Lasix 40 mg IV x 1. 0.9% normal saline at KVO. Calcium gluconate 1 g IV piggyback x 1 now. Dulcolax suppository x 1 now. Daily weights. More recommendations to follow based on patient's clinical course. Time with Patient: Greater than 30
[2024-03-02] MEDS: SODIUM BICARB 8.4% 50 ML SYR (1 MEQ/ML) IV STA (09:31)
[2024-03-02] MEDS: FUROSEMIDE 10 MG/ML 4 ML VIAL IV STA (09:32)
[2024-03-02] MEDS: ALBUMIN HUMAN 25% 50 ML in EMPTY BAG 1 BAG IVPB SCH (10:07)
--- NOTE | 2024-03-02 10:24 | P.PN ---
Subjective Patient is seen in follow-up for acute kidney injury. Creatinine 4.2 today. Remains on Primacor and dopamine. Underwent CABG February 26, 2024. Blood pressure controlled. Urine output 10 to 20 cc an hour. Vital signs are stable. General: No acute distress. HEENT: Head exam is unremarkable. On nasal cannula. LUNGS: Chest tubes noted. HEART: Rate and Rhythm are regular. ABDOMEN: Nontender. EXTREMITITES: 1+ edema. Objective - Vital Signs Vital signs: Vital Signs Temp 97.0 F L 03/02/24 00:00 Pulse 71 03/02/24 07:00 Resp 14 03/02/24 07:00 BP 124/68 03/02/24 07:00 Pulse Ox 97 03/02/24 07:00 FiO2 40 02/26/24 16:39 Intake & Output 03/01/24 03/02/24 03/02/24 18:59 06:59 18:59 Intake Total 1290 366 6 Output Total 1245 675 185 Balance 45 -309 -179 Weight 85.9 kg Intake: IV 212 202 6 .9NS Cardiac Output 140 130 .9NS Pressure Bag 72 72 6 Intake, IV Titration 838 164 Amount Dextrose 5% in Water 1, 250 50 000 ml @ 50 mls/hr IV . Q23H LYNDSAY with Sodium Bicarb (1 Meq/ml) 150 ml Rx#:[id number] Dextrose 5% in Water 100 100 ml @ 618 mls/hr IV .Q10M ONE with Amiodarone 150 mg Rx#:[id number] Dextrose/Water 1 250ml. 20 4 bag @ 2.5 MCG/KG/MIN 3. 933 mls/hr IV .Q24H LYNDSAY with DOPamine DRIP 800 mg Rx#:[id number] Dextrose/Water 1 250ml. 8 bag @ 3 MCG/KG/MIN 4.052 mls/hr IV .Q24H LYNDSAY with DOPamine DRIP 800 mg Rx#: [id number] Milrinone-D5w Pmx 20 mg 100 In Dextrose/Water 1 100ml .bag @ 0.25 MCG/KG/MIN 5. 993 mls/hr IV .[id number] LYNDSAY Rx#:[id number] Sodium Chloride 0.9% 1, 360 10 000 ml @ 50 mls/hr IV . Q20H LYNDSAY Rx#:[id number] Sodium Ferric Gluconat- 100 Sucrose 125 mg In Sodium Chloride 0.9% 100 ml @ 100 mls/hr IVPB DAILY [facility] Rx#:[id number] Oral 240 Output: Chest Tube Drainage 1040 530 170 Left Pleural Chest Tube 400 250 70 Right Pleural Chest Tube 640 280 100 Urine 205 145 15 Other: Voiding Method Indwelling Catheter Indwelling Catheter ABP, PAP, CO, CI - Last Documented Arterial Blood Pressure 139/47 Pulmonary Artery Pressure 29/10 Cardiac Output 4.3 Cardiac Index 2.3 - Labs CBC & Chem 7: 03/02/24 03:43 03/02/24 03:43 Labs: Abnormal Lab Results - Last 24 Hours (Table) 03/01/24 03/01/24 03/01/24 Range/Units 11:21 15:39 20:07 RBC (3.80-5.40) m/uL Hgb (11.4-16.0) gm/dL Hct (34.0-46.0) % Sodium (137-145) mmol/L Carbon Dioxide (22-30) mmol/L BUN (7-17) mg/dL Creatinine (0.52-1.04) mg/dL Glucose (74-99) mg/dL POC Glucose (mg/dL) 242 H 217 H 292 H (70-110) mg/dL Calcium (8.4-10.2) mg/dL Alkaline Phosphatase (38-126) U/L Total Protein (6.3-8.2) g/dL Albumin (3.5-5.0) g/dL 03/02/24 03/02/24 03/02/24 Range/Units 03:43 03:43 07:00 RBC 2.88 L (3.80-5.40) m/uL Hgb 8.6 L (11.4-16.0) gm/dL Hct 27.4 L (34.0-46.0) % Sodium 130 L (137-145) mmol/L Carbon Dioxide 18 L (22-30) mmol/L BUN 78 H (7-17) mg/dL Creatinine 4.20 H (0.52-1.04) mg/dL Glucose 214 H (74-99) mg/dL POC Glucose (mg/dL) 214 H (70-110) mg/dL Calcium 8.0 L (8.4-10.2) mg/dL Alkaline Phosphatase 144 H (38-126) U/L Total Protein 4.9 L (6.3-8.2) g/dL Albumin 2.5 L (3.5-5.0) g/dL Assessment and Plan Plan: Assessment: 1. Acute kidney injury secondary to ATN secondary to cardiorenal syndrome. Also from hypotension. Renal function worse. Creatinine 4.2 today. Creatinine as low as 0.98 dated March 01, 2022. No hydronephrosis noted on kidney ultrasound. Serologies negative. 2. Acute on chronic systolic CHF with ejection fraction of 20 to 25% with moderate to severe mitral regurgitation and mild pulmonary hypertension. 3. Volume overload. 4. Anemia. Iron deficiency noted. Seen by GI. Status post blood transfusion this admission. Also received IV DDAVP. 5. Metabolic acidosis secondary to acute kidney injury and IV fluids. Better. 6. Hyponatremia secondary to acute kidney injury. Hypervolemic. 7. Urinary retention status post Saldaña catheter placement. Plan: Currently on IV Primacor and dopamine. Lasix 40 mg IV once today. Status post IV albumin given February 29, 2024. Hep-Lock IV fluids. Avoid nephrotoxins. Continue to monitor renal function and urine output. Maintain IV iron. Maintain midodrine.
[2024-03-02 11:50] LABS: Glucose,Whole Blood 286 mg/dL (70-110); Glucose,Whole Blood 301 mg/dL (70-110)
--- NOTE | 2024-03-02 12:52 | P.PN ---
Subjective Progress Note Date: 03/02/24 Patient 02/26/2024, the patient is being seen immediately after she arrived to the intensive care unit. This patient has been in the hospital for almost 2 weeks. She sustained an acute non-ST segment elevation myocardial infarction. She has severe ischemic cardiomyopathy with an ejection fraction of 20 to 25% along with moderate to severe mitral regurgitation. The patient was optimized and subsequently the patient was taken to the operating room for cardiac revascularization surgery. The patient is known to have COPD, diabetes mellitus type 1, hypertension hyperlipidemia previous history of CVA and hypothyroidism along with fibromyalgia. She is a chronic smoker who carries [id number] smoki ng history. The patient underwent off-pump coronary bypass surgery x 4 with sequential RUSSO to LAD and diagonal and SVG to PDA and second obtuse marginal and closure of the left atrial appendage. An intra-aortic balloon pump was also inserted intraoperatively. At this point in time, the patient is intubated and on mechanical ventilator. The patient was on assist-control mode of mechanical ventilation at the rate of 14, tidal volume of 400 with an FiO2 of 100% with a PEEP of 5. The patient had an initial blood gas that showed a pH of 7.34 with pCO2 of 46 and pO2 of 265. Based on that, the FiO2 was gradually weaned off and the respiratory rate was increased up to 22. Subsequently, the patient remained hemodynamically stable. In fact, her current cardiac output is at 4.8 with an index of 2.6 while being augmented with a one-to-one intra-aortic balloon pump support with a mean augmented arterial pressure of 83-85. She has been on nitroglycerin drip which is running at 5 mg/min and she is also on dopamine at 3 mcg/kg/min. The patient is producing adequate amount of cardiac output. Cardiac rhythm is sinus and the patient is currently on amiodarone. The chest x-ray that was done in the ICU shows adequate expansion of both lungs. The patient has a right IJ Solano-Jamal catheter in place and ET tube is around 2 cm above the anthony and the patient has a right pleural left pleural and mediastinal chest tube. Output from the chest tubes have been essentially low in the order of 100-150 cc from the chest tube just arrived from the operating room. Based on her stable condition, the patient was taken gradually off the propofol and the patient is currently undergoing a spontaneous breathing trial with a pressure support of 5 and a PEEP of 5. The weaning parameters were karie quate. The blood work today postop showed a sodium level of 136 with a potassium level of 4.2, BUN is 57 with a creatinine of 2.6 and the patient has a white cell count of 4.9 with a hemoglobin of 9 and a platelet count of 252. She is arousable and she is following commands and moving all 4 extremities without any limitation. She is currently afebrile. 02/27/2024, patient is being seen for a follow-up. Noted the patient is postop day #1 following a coronary artery bypass surgery. The patient underwent an off-pump four-vessel bypass surgery. She required intra-aortic balloon pump support postoperatively. The patient is currently doing well. She is extubated on 2 L of oxygen by nasal cannula. Intra-aortic balloon pump was removed today. Solano-Jamal catheter still in place. PA pressures of 37/60. CVP is at 13. Cardiac output is at 5.1 with an index of 2.7. The left lower chest tube has drained 460 cc over the past 24 hours, right lower chest tube and drain 240 cc in the mediastinum has drained 200 cc. The patient is still on nitroglycerin drip at low-dose. Remains on insulin drip at 1.5 units an hour. Remains on a amiodarone maintenance of 0.5 mg/min and the patient is on a normal sinus rhythm. Dopamine is running at 2 mcg/kg/min. No specific complaints. Resting comfortably in bed. Chest x-ray shows no evidence of any pneumothorax. Lungs are well-expanded and the tubes are in place. WBC count of 8.1 with a hemoglobin 9.4 and a platelet count of 328. Sodium is at 134, BUN is 57 with a creatinine of 2.6 and a serum bicarb is at 21. Blood sugars are under adequate control at this point in time while being on insulin drip. Awake and alert and communicating. On 02/28/2024, I am seeing the patient for a follow-up. The patient is postop day #2. Awake and alert and sitting up in the chair. Mediastinal chest tube has been removed. Right lower chest tube and drains are out 4 the intra-aortic balloon pump has been removed. Exit site is clean. The patient remains on dopamine 70 cc over the past 24 hours and a left pleural chest tube with drain 870 cc over the past 24 hours. The patient is currently on 2 L of O2 nasal cannula. At 2 mcg/kg/min. The patient has been switched to oral amiodarone 4 mg p.o. twice a day and the patient is also on metoprolol 12.5 mg twice a day and the patient on aspirin and Plavix. Insulin drip is still running at 1 unit an hour. Using incentive spirometer, pulling approximately 500 cc. Blood work from today shows WBC count of 12.4 with a hemoglobin 10.2, BUN 62 with a creatinine of 3.07 and a sodium levels at 135 with a bicarb level is at 20. Chest x-ray shows essentially postsurgical changes. Mediastinal chest tube has been removed. The right and the pleural chest tubes are still in place. Cannot rule out very tiny apical pneumothoraces. There is some mild pulm vessel congestion. Otherwise, no other significant events overnight and the patient is alert and awake and communicating. 02/29/2024, the patient is being seen in cardiac follow-up. The patient is postop day #3 post four-vessel coronary bypass surgery. The surgical report has been removed. This morning, the patient is sitting up on a chair. Nevertheless, there has been some hemodynamic changes and the patient became hypotensive overnight. The patient was initially given 25% of albumin, 50 cc and subsequently the patient was given 5% albumin and total of 500 cc and currently she is receiving another dose of albumin 250 cc of 5% albumin. Dopamine was dropped to 1.5 mcg/kg/min which currently appears to have lower blood pressure and his systolic blood pressure currently is in the mid 80s. Cardiac output and index 3.0 and 1.6 respectively. Pulmonary artery pressures of 34/10. The mixed venous saturation is low at 40. The patient has a right pleural and left lower chest tube. Output from the right ear to 85 cc an hour. Present for 395 L over the past 24 hours. Chest x-ray shows increased pulm vascular markings. Atelectatic change in lung bases. Chest tubes are in good location. No evidence of any air leak in the Pleur-evac. The patient remains on oxygen and 3 L/min nasal cannula. The patient is also on normal citrate of 80 cc an hour. The blood work from today shows a BUN of 66 with a creatinine of 3.6 and the patient has developed interval worsening of renal function. Sodium level is at 131 with a potassium level of 5.1. LFTs are normal. The risk of 9.9 with a hemoglobin of 9.2 and a platelet count of 284. She is awake and alert and communicating. She is afebrile for now. As mentioned, she remains on 3 L of O2 nasal cannula. On 03/01/2024, the patient is being seen for a follow-up. She is sitting up on a chair. The patient was started on Primacor at 0.25 mcg/kg/min and the cardiac output today is at 4.2 with an index of 2.4. PA pressure 34/12. CVP is at 17. She remains on dopamine at 3 mcg/kg/min. She continues to have bilateral chest tube, the right fluid has drained 160 cc over the past 8 hours, 5 and 6 over the past 24 hours, left has drained around 260 cc over the past 8 hours and 650 over the past 24 hours. Chest x-ray still showing postsurgical changes. Chest tubes are in good location. Solano-Jamal catheter is in place. Questionable tiny apical pneumothoraces bilaterally. The mixed venous oxygen saturation is improved and is currently up to 57. Limited because of 8.8 with a hemoglobin of 8.7. BUN is 73 with a creatinine of 3.9 and a serum bicarb is at 16. Cardiac rhythm is sinus. Hemodynamically stable and improved while being on Primacor and do pamine. Awake and alert. No other significant events overnight. The patient is postop day #4 03/02/2024, patient is being seen for a follow-up. Patient is doing well on 2 L of oxygen nasal cannula. Remains on Primacor at 0.25 mcg/kg/min and remains on dopamine. Dopamine was running at 2.5 mcg and this was weaned down to 2 mcg and this resulted in drop in the cardiac output. Based on that, it was brought back up to 2.5 mcg and the most recent cardiac output is at 3.4 with an index of 1.8. PA pressures of 30/7 with a CVP of 12 and the cardiac rhythm is sinus. Left- sided chest tube and drains to 60 cc over the past 8700 over the past 24 hours, right-sided chest tube has drained to 20 cc over the past 8 hours and thousand and 20 cc over the past 24 hours. The patient is also on midodrine. The patient is on Levemir insulin 15 units twice daily. Awake and alert. No focal neurological deficit. Chest x-ray shows questionable apical pneumothorax which is very tiny. Chest tubes are in good location. There are some pulm vascular congestion. Blood work shows a BUN of 78 with a creatinine of 4.2 and there is a steady rise in the creatinine. Serum bicarb is at 18 with a sodium level of 130, potassium level is at 4.5, the risk is at 7.7 with a hemoglobin 8.6. Patient was started on hydralazine 20 mg p.o. every 6 hours. Remains on aspirin and Plavix. Patient is postop day #5. Objective - Vital Signs Vital signs: Vital Signs Temp 97.0 F L 03/02/24 00:00 Pulse 71 03/02/24 07:00 Resp 14 03/02/24 07:00 BP 124/68 03/02/24 07:00 Pulse Ox 97 03/02/24 07:00 FiO2 40 02/26/24 16:39 Intake & Output 03/01/24 03/02/24 03/02/24 18:59 06:59 18:59 Intake Total 1290 366 6 Output Total 1245 675 185 Balance 45 -309 -179 Weight 85.9 kg Intake: IV 212 202 6 .9NS Cardiac Output 140 130 .9NS Pressure Bag 72 72 6 Intake, IV Titration 838 164 Amount Dextrose 5% in Water 1, 250 50 000 ml @ 50 mls/hr IV . Q23H [facility] with Sodium Bicarb (1 Meq/ml) 150 ml Rx#:[id number] Dextrose 5% in Water 100 100 ml @ 618 mls/hr IV .Q10M ONE with Amiodarone 150 mg Rx#:[id number] Dextrose/Water 1 250ml. 20 4 bag @ 2.5 MCG/KG/MIN 3. 933 mls/hr IV .Q24H [facility] with DOPamine DRIP 800 mg Rx#:[id number] Dextrose/Water 1 250ml. 8 bag @ 3 MCG/KG/MIN 4.052 mls/hr IV .Q24H [facility]NDSA[facility] with DOPamine DRIP 800 mg Rx#: [id number] Milrinone-D5w Pmx 20 mg 100 In Dextrose/Water 1 100ml .bag @ 0.25 MCG/KG/MIN 5. 993 mls/hr IV .[id number] [facility] Rx#:[id number] Sodium Chloride 0.9% 1, 360 10 000 ml @ 50 mls/hr IV . Q20H [facility] Rx#:[id number] Sodium Ferric Gluconat- 100 Sucrose 125 mg In Sodium Chloride 0.9% 100 ml @ 100 mls/hr IVPB DAILY [facility] Rx#:[id number] Oral 240 Output: Chest Tube Drainage 1040 530 170 Left Pleural Chest Tube 400 250 70 Right Pleural Chest Tube 640 280 100 Urine 205 145 15 Other: Voiding Method Indwelling Catheter Indwelling Catheter ABP, PAP, CO, CI - Last Documented Arterial Blood Pressure 139/47 Pulmonary Artery Pressure 29/10 Cardiac Output 4.3 Cardiac Index 2.3 - Exam GENERAL EXAM: Alert, 58-year-old white female, resting comfortably in bed, the patient is awake and oriented x 3 on 2 L of oxygen by nasal cannula, extubated HEAD: Normocephalic and atraumatic EYES: Normal reaction of pupils, equal size. NOSE: Clear with pink turbinates. THROAT: No erythema or exudates. NECK: No masses, no JVD. CHEST: No chest wall deformity. LUNGS: The patient has a right lower and left sided chest tube. Thoracotomy scar is dry clean and intact. Breath sounds equal and symmetrical bilaterally. CVS: S1 and S2 normal with no audible murmur, regular rhythm. No extra heart sounds ABDOMEN: No hepatosplenomegaly, active bowel sounds, no guarding or rigidity. SPINE: No scoliosis or deformity SKIN: No rashes CENTRAL NERVOUS SYSTEM: No focal deficits, tone is normal in all 4 extremities. EXTREMITIES: There is bilateral lower has equal and symmetrical pulses in the lower extremities bilaterally. The patient has amputation of the right great toe. Extremities are warm. - Labs CBC & Chem 7: 03/02/24 03:43 03/02/24 03:43 Labs: Abnormal Lab Results - Last 24 Hours (Table) 03/01/24 03/01/24 03/01/24 Range/Units 11:21 15:39 20:07 RBC (3.80-5.40) m/uL Hgb (11.4-16.0) gm/dL Hct (34.0-46.0) % Sodium (137-145) mmol/L Carbon Dioxide (22-30) mmol/L BUN (7-17) mg/dL Creatinine (0.52-1.04) mg/dL Glucose (74-99) mg/dL POC Glucose (mg/dL) 242 H 217 H 292 H (70-110) mg/dL Calcium (8.4-10.2) mg/dL Alkaline Phosphatase (38-126) U/L Total Protein (6.3-8.2) g/dL Albumin (3.5-5.0) g/dL 03/02/24 03/02/24 03/02/24 Range/Units 03:43 03:43 07:00 RBC 2.88 L (3.80-5.40) m/uL Hgb 8.6 L (11.4-16.0) gm/dL Hct 27.4 L (34.0-46.0) % Sodium 130 L (137-145) mmol/L Carbon Dioxide 18 L (22-30) mmol/L BUN 78 H (7-17) mg/dL Creatinine 4.20 H (0.52-1.04) mg/dL Glucose 214 H (74-99) mg/dL POC Glucose (mg/dL) 214 H (70-110) mg/dL Calcium 8.0 L (8.4-10.2) mg/dL Alkaline Phosphatase 144 H (38-126) U/L Total Protein 4.9 L (6.3-8.2) g/dL Albumin 2.5 L (3.5-5.0) g/dL Assessment and Plan Assessment: Multivessel coronary artery disease and the patient is status post acute non-ST elevation NH, the patient underwent four-vessel bypass surgery off-pump which included sequential RUSSO to To the LAD and diagonal and SVG to PDA and second obtuse marginal branch and the patient is currently postop day day # 5. Remains on Primacor and dobutamine. Hemodynamic parameters were noted. Will continue pressors for now. Monitor urine output. Monitor renal function. Monitor output from the chest tubes in the chest about was still active. As such, the chest will be kept in place. Acute hypoxic respiratory failure currently on 3 L of oxygen by nasal cannula Postthoracotomy, currently intubated on the mechanical ventilator. Mediastinal chest tube has been removed. The patient has a right pleural and left lower chest tubes in place. Output from the chest has not been noted. No respiratory distress for now. Ischemic cardiomyopathy with an estimated left ventricular ejection fraction severely impaired at 20 to 25% as well as moderate to severe mitral valve regurgitation Normocytic normochromic anemia, Chronic kidney disease stage III with a component of acute kidney injury. patient also has a component of anion gap metabolic acidosis. . Chronic obstructive pulmonary disease, stable Diabetes mellitus type 1, had HbA1c at the time of admission was 7.1 History of hyperlipidemia History of hypertension History of CVA/TIA History of hypothyroidism History of fibromyalgia History of GERD Mildly elevated LFTs, hepatitis panel nonreactive Former tobacco smoker as of 55 days ago, before this 1/2 pack/day or approximately 15-year pack history' Previous history of methamphetamine use Plan: Oxygen at 2 -3 L/min nasal cannula and encourage use of incentive spirometer. Right and left pleural chest tube In place, continue monitoring the output Continue Primacor which is running at 2.5 mcg/kg/min. Continue dopamine which is currently running at 2.5 mcg/kg/min. Stop the bicarb infusion and give the patient a total of 100 mEq of IV bicarb push. The patient 25% albumin and total of 100 cc Give the patient dose of Lasix 40 mg IV push Patient was given IV calcium Continue hydralazine Continue aspirin and Plavix Continue oral amiodarone Monitor electrolytes Chest x-ray was noted Solano-Jamal catheter to be kept in place Levemir insulin 15 units twice daily and sliding scale insulin coverage. Pain management Monitor renal function Will continue to follow and make further recommendations based on her progress. Evaluation was done more than 30 minutes. This is coordinated with the cardiothoracic team. Time with Patient: Greater than 30
--- NOTE | 2024-03-02 13:57 | P.PN ---
Subjective CAD status post CABG The patient is a 58-year-old female patient with a past medical history significant for coronary artery disease status post CABG x 4 as well as hypertension and dyslipidemia and chronic kidney disease and ischemic cardiomyopathy. This is postoperation day #4 February 29, 2024 The patient was seen this morning. Her pressure remains marginal and currently she is on dopamine for renal perfusion. Her kidney function is worse. She has been maintaining normal sinus mechanism. The chest x-ray looks better than yesterday yesterday it was wet and the Lasix was given with improvement in that. She is on dual antiplatelet therapy along with a statin along with beta-alex and she is on hydralazine because the SVR is elevated. I would suggest DC dopamine and start the patient on dobutamine or Primacor to increase contractil ity and decrease afterload. The examination is remarkable for regular rhythm with a distant heart sounds and diminished breathing sounds bilaterally 03/02 patient seen and examined. Patient remains on milrinone at 0.25, dopamine drip at 2. Denies any chest pain or pressure. Marginal urine output with 5-15 mL per hour. She did receive albumin as well as Lasix. She denies any significant cough, fevers or chills. Cardiac index decreased down to 1.8 with weaning of milrinone previously however currently 2.3. hydralazine was held overnight secondary to systolics in the 80s with a map of 63. Assessment CAD status post CABG Ischemic cardiomyopathy Chronic kidney disease cardiogenic shock on vasopressors, inotropes Multiple comorbid conditions Plan Continue dual antiplatelet therapy Continue statin continue inotropes and wean as able. Hopefully requirements for vasopressors, inotropes will improve with time Monitor kidney function, urine output. Monitor anemia continue with hydralazine for afterload reduction, although hold a map less than 65. Objective - Vital Signs Vital signs: Vital Signs Temp 97.0 F L 03/02/24 00:00 Pulse 71 03/02/24 12:00 Resp 16 03/02/24 12:00 BP 103/57 03/02/24 12:00 Pulse Ox 93 L 03/02/24 12:00 FiO2 40 02/26/24 16:39 Intake & Output 03/01/24 03/02/24 03/02/24 18:59 06:59 18:59 Intake Total 1290 366 682 Output Total 1245 675 570 Balance 45 -309 112 Weight 85.9 kg Intake: IV 212 202 442 .9NS Cardiac Output 140 130 60 .9NS Pressure Bag 72 72 42 0.9 sodium chloride 240 Albumin Human 25% 50 ml 100 In Empty Bag 1 bag @ 50 mls/hr IVPB Q1H [facility] Rx#: [id number] Intake, IV Titration 838 164 Amount Dextrose 5% in Water 1, 250 50 000 ml @ 50 mls/hr IV . Q23H [facility] with Sodium Bicarb (1 Meq/ml) 150 ml Rx#:[id number] Dextrose 5% in Water 100 100 ml @ 618 mls/hr IV .Q10M ONE with Amiodarone 150 mg Rx#:[id number] Dextrose/Water 1 250ml. 20 4 bag @ 2.5 MCG/KG/MIN 3. 933 mls/hr IV .Q24H [facility] with DOPamine DRIP 800 mg Rx#:[id number] Dextrose/Water 1 250ml. 8 bag @ 3 MCG/KG/MIN 4.052 mls/hr IV .Q24H [facility] with DOPamine DRIP 800 mg Rx#: [id number] Milrinone-D5w Pmx 20 mg 100 In Dextrose/Water 1 100ml .bag @ 0.25 MCG/KG/MIN 5. 993 mls/hr IV .[id number] [facility] Rx#:[id number] Sodium Chloride 0.9% 1, 360 10 000 ml @ 50 mls/hr IV . Q20H [facility] Rx#:[id number] Sodium Ferric Gluconat- 100 Sucrose 125 mg In Sodium Chloride 0.9% 100 ml @ 100 mls/hr IVPB DAILY [facility] Rx#:[id number] Oral 240 240 Output: Chest Tube Drainage 1040 530 510 Left Pleural Chest Tube 400 250 260 Right Pleural Chest Tube 640 280 250 Urine 205 145 60 Other: Voiding Method Indwelling Catheter Indwelling Catheter ABP, PAP, CO, CI - Last Documented Arterial Blood Pressure 139/47 Pulmonary Artery Pressure 32/13 Cardiac Output 4.1 Cardiac Index 2.2 - Labs CBC & Chem 7: 03/02/24 03:43 03/02/24 03:43 Labs: Abnormal Lab Results - Last 24 Hours (Table) 03/01/24 03/01/24 03/02/24 Range/Units 15:39 20:07 03:43 RBC 2.88 L (3.80-5.40) m/uL Hgb 8.6 L (11.4-16.0) gm/dL Hct 27.4 L (34.0-46.0) % Sodium (137-145) mmol/L Carbon Dioxide (22-30) mmol/L BUN (7-17) mg/dL Creatinine (0.52-1.04) mg/dL Glucose (74-99) mg/dL POC Glucose (mg/dL) 217 H 292 H (70-110) mg/dL Calcium (8.4-10.2) mg/dL Alkaline Phosphatase (38-126) U/L Total Protein (6.3-8.2) g/dL Albumin (3.5-5.0) g/dL 03/02/24 03/02/24 03/02/24 Range/Units 03:43 07:00 11:48 RBC (3.80-5.40) m/uL Hgb (11.4-16.0) gm/dL Hct (34.0-46.0) % Sodium 130 L (137-145) mmol/L Carbon Dioxide 18 L (22-30) mmol/L BUN 78 H (7-17) mg/dL Creatinine 4.20 H (0.52-1.04) mg/dL Glucose 214 H (74-99) mg/dL POC Glucose (mg/dL) 214 H 301 H (70-110) mg/dL Calcium 8.0 L (8.4-10.2) mg/dL Alkaline Phosphatase 144 H (38-126) U/L Total Protein 4.9 L (6.3-8.2) g/dL Albumin 2.5 L (3.5-5.0) g/dL 03/02/24 Range/Units 11:48 RBC (3.80-5.40) m/uL Hgb (11.4-16.0) gm/dL Hct (34.0-46.0) % Sodium (137-145) mmol/L Carbon Dioxide (22-30) mmol/L BUN (7-17) mg/dL Creatinine (0.52-1.04) mg/dL Glucose (74-99) mg/dL POC Glucose (mg/dL) 286 H (70-110) mg/dL Calcium (8.4-10.2) mg/dL Alkaline Phosphatase (38-126) U/L Total Protein (6.3-8.2) g/dL Albumin (3.5-5.0) g/dL
[2024-03-02 16:48] LABS: Glucose,Whole Blood 187 mg/dL (70-110)
[2024-03-02] MEDS: INSULIN ASPART (NovoLOG) 100 UNIT/ML VIAL SQ SCH (16:51)
[2024-03-02 20:06] LABS: Glucose,Whole Blood 170 mg/dL (70-110)
[2024-03-03 04:52] LABS: HCT 26.1 % (34.0-46.0); HGB 8.1 gm/dL (11.4-16.0); Hypochromasia Moderate; MCV 96.7 fL (80.0-100.0); Mean Platelet Volume 8.4; Platelet Count 310 k/uL (150-450); RDW 14.5 % (11.5-15.5); WBC 6.8 k/uL (3.8-10.6)
[2024-03-03 05:10] LABS: ALT <6 U/L (4-34); AST 22 U/L (14-36); African American GFR (CKD) 12 (>60 ml/min/1.73 sqM); Albumin 2.6 g/dL (3.5-5.0); Alkaline Phosphatase 130 U/L (38-126); Anion Gap 8 mmol/L; Blood Urea Nitrogen 78 mg/dL (7-17); Calcium 7.9 mg/dL (8.4-10.2); Carbon Dioxide 23 mmol/L (22-30); Chloride 102 mmol/L (98-107); Glucose 73 mg/dL (74-99); Non-African American GFR(CKD) 10 (>60 ml/min/1.73 sqM); Potassium 4.1 mmol/L (3.5-5.1); Sodium 133 mmol/L (137-145); Total Bilirubin 0.3 mg/dL (0.2-1.3); Total Protein 4.8 g/dL (6.3-8.2)
[2024-03-03 06:40] LABS: Glucose,Whole Blood 55 mg/dL (70-110)
[2024-03-03 07:01] LABS: Glucose,Whole Blood 56 mg/dL (70-110)
[2024-03-03 07:19] LABS: Glucose,Whole Blood 94 mg/dL (70-110)
--- NOTE | 2024-03-03 07:52 | PN ---
PROGRESS NOTE DATE OF SERVICE: 03/02/2024 SUBJECTIVE: This is a 58-year-old woman who was admitted with CHF acute exacerbation, also underwent CAD, CABG. The patient's ejection fraction found to be 20% to 24%. The most recent chest x-ray which was reviewed personally by me showed some fluid overload. Multiple consultants are following the patient closely. PAST MEDICAL HISTORY: Reviewed. REVIEW OF SYSTEMS: 14-point review is negative as mentioned. CURRENT MEDICATIONS: Reviewed include Cordarone. Rest of medications and doses are reviewed. PHYSICAL EXAM: VITAL SIGNS: Pulse 70, blood pressure 103/51, respirations 17. HEENT: Conjunctivae normal. CARDIOVASCULAR: S1 and S2. RESPIRATIONS: Diminished breath sounds at the bases. Scattered rhonchi. ABDOMEN: Soft, nontender. NEUROLOGIC: Nonfocal. LABORATORY DATA: Hemoglobin is 8.6, creatinine is 4.20. ASSESSMENT: 1. Acute [id number] elevation myocardial infarction, multivessel coronary disease status post coronary artery disease, coronary artery bypass grafting. 2. Acute hypoxic respiratory failure, status post mechanical ventilation. 3. Ischemic cardiomyopathy with acute systolic dysfunction with ejection fraction 20% to 24%. 4. Acute on chronic kidney disease and renal failure. 5. Acute urinary retention. 6. Diabetes mellitus type 2. 7. 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 8. Multiple complex medical issues. RECOMMENDATIONS AND DISCUSSION: This 58-year-old patient with complex medical issues. We will monitor the patient closely. Recommend to continue the current medications. Monitor the fluid electrolyte balance closely. The patient is receiving Lasix on an as-needed basis. Recommend monitor blood sugars closely. The sugars are slightly high. I would increase the dose of Levemir to 20 b.i.d. and continue to monitor and continue with consistent carb diet and repeat labs. Further recommendations to follow. See orders for details. MMODL / IJN: [id number] /
--- NOTE | 2024-03-03 07:55 | P.PN ---
Subjective CAD status post CABG The patient is a 58-year-old female patient with a past medical history significant for coronary artery disease status post CABG x 4 as well as hypertension and dyslipidemia and chronic kidney disease and ischemic cardiomyopathy. This is postoperation day #4 February 29, 2024 The patient was seen this morning. Her pressure remains marginal and currently she is on dopamine for renal perfusion. Her kidney function is worse. She has been maintaining normal sinus mechanism. The chest x-ray looks better than yesterday yesterday it was wet and the Lasix was given with improvement in that. She is on dual antiplatelet therapy along with a statin along with beta-alex and she is on hydralazine because the SVR is elevated. I would suggest DC dopamine and start the patient on dobutamine or Primacor to increase contractil ity and decrease afterload. The examination is remarkable for regular rhythm with a distant heart sounds and diminished breathing sounds bilaterally 03/02 patient seen and examined. Patient remains on milrinone at 0.25, dopamine drip at 2. Denies any chest pain or pressure. Marginal urine output with 5-15 mL per hour. She did receive albumin as well as Lasix. She denies any significant cough, fevers or chills. Cardiac index decreased down to 1.8 with weaning of milrinone previously however currently 2.3. hydralazine was held overnight secondary to systolics in the 80s with a map of 63. 5/26 patient seen and examined. Denies any chest pain or pressure. Does have somewhat more of an appetite. Attempted to wean dopamine however cardiac index came down to 1.8. Remains on milrinone at 0.25. Urine output 20s cc per hour. Patient was placed on Midrin and maps in the 75-80 range up to 89. Assessment CAD status post CABG Ischemic cardiomyopathy Chronic kidney disease cardiogenic shock on vasopressors, inotropes Multiple comorbid conditions Plan Continue dual antiplatelet therapy Continue statin continue inotropes and wean as able. Hopefully requirements for vasopressors, i notropes will improve with time Monitor kidney function, urine output. Monitor anemia continue with hydralazine for afterload reduction, although hold a map less than 65. patient was placed on Midrin which is counterproductive. Stop Midodrin and continue with afterload reduction. Maps of 75-80, 90 are too high for her and increasing afterload. May need to increase hydralazine. Objective - Vital Signs Vital signs: Vital Signs Temp 97.3 F L 03/03/24 04:00 Pulse 74 03/03/24 07:00 Resp 15 03/03/24 07:00 BP 115/59 03/03/24 07:00 Pulse Ox 99 03/03/24 07:00 FiO2 40 02/26/24 16:39 Intake & Output 03/02/24 03/03/24 03/03/24 18:59 06:59 18:59 Intake Total 1031.184 642 46 Output Total 1052 875 20 Balance -20.816 -233 26 Weight 87 kg Intake: IV 692 642 46 .9NS Cardiac Output 80 90 .9NS Pressure Bag 72 72 6 0.9 sodium chloride 440 480 40 Albumin Human 25% 50 ml 100 In Empty Bag 1 bag @ 50 mls/hr IVPB Q1H COUNTS INCLUDE 234 BEDS AT THE [facility] Rx#: [id number] Intake, IV Titration 99.184 Amount Milrinone-D5w Pmx 20 mg 99.184 In Dextrose/Water 1 100ml .bag @ 0.25 MCG/KG/MIN 5. 993 mls/hr IV .[id number] COUNTS INCLUDE 234 BEDS AT THE [facility] Rx#:[id number] Oral 240 Output: Chest Tube Drainage 950 740 10 Left Pleural Chest Tube 440 360 10 Right Pleural Chest Tube 510 380 Urine 102 135 10 Other: Voiding Method Indwelling Catheter Indwelling Catheter ABP, PAP, CO, CI - Last Documented Arterial Blood Pressure 139/47 Pulmonary Artery Pressure 28/12 Cardiac Output 4.3 Cardiac Index 2.3 - Labs CBC & Chem 7: 03/03/24 04:21 03/03/24 04:21 Labs: Abnormal Lab Results - Last 24 Hours (Table) 03/02/24 03/02/24 03/02/24 Range/Units 11:48 11:48 16:46 RBC (3.80-5.40) m/uL Hgb (11.4-16.0) gm/dL Hct (34.0-46.0) % Sodium (137-145) mmol/L BUN (7-17) mg/dL Creatinine (0.52-1.04) mg/dL Glucose (74-99) mg/dL POC Glucose (mg/dL) 301 H 286 H 187 H (70-110) mg/dL Calcium (8.4-10.2) mg/dL Alkaline Phosphatase (38-126) U/L Total Protein (6.3-8.2) g/dL Albumin (3.5-5.0) g/dL 03/02/24 03/03/24 03/03/24 Range/Units 20:05 04:21 04:21 RBC 2.70 L (3.80-5.40) m/uL Hgb 8.1 L (11.4-16.0) gm/dL Hct 26.1 L (34.0-46.0) % Sodium 133 L (137-145) mmol/L BUN 78 H (7-17) mg/dL Creatinine 4.42 H (0.52-1.04) mg/dL Glucose 73 L (74-99) mg/dL POC Glucose (mg/dL) 170 H (70-110) mg/dL Calcium 7.9 L (8.4-10.2) mg/dL Alkaline Phosphatase 130 H (38-126) U/L Total Protein 4.8 L (6.3-8.2) g/dL Albumin 2.6 L (3.5-5.0) g/dL 03/03/24 03/03/24 Range/Units 06:38 07:00 RBC (3.80-5.40) m/uL Hgb (11.4-16.0) gm/dL Hct (34.0-46.0) % Sodium (137-145) mmol/L BUN (7-17) mg/dL Creatinine (0.52-1.04) mg/dL Glucose (74-99) mg/dL POC Glucose (mg/dL) 55 L 56 L (70-110) mg/dL Calcium (8.4-10.2) mg/dL Alkaline Phosphatase (38-126) U/L Total Protein (6.3-8.2) g/dL Albumin (3.5-5.0) g/dL
--- NOTE | 2024-03-03 07:56 | P.PN ---
Subjective Progress Note Date: 03/03/24 Principal diagnosis: Triple-vessel coronary artery disease, non-STEMI this admission, acute systolic heart failure with reduced ejection fraction 35%, new onset ischemic cardiomyop athy, mild mitral valve regurgitation on [place], acute on chronic kidney disease, acute anemia. History of hypertension, hyperlipidemia, hypothyroid, diabetes mellitus, CVA, hepatitis as a child, CKD stage IV, previous tobacco dependence with recent cessation, severe COPD, previous methamphetamine use with recent cessation, family history of coronary artery disease. POD #6 Off-pump CABG x 4 with sequential left internal mammary artery to left anterior descending coronary artery and diagonal coronary artery, reverse saphenous vein graft's to the posterior descending coronary artery and second o btuse marginal coronary artery, closure of the left atrial appendage with 35mm AtriCure clip, placement of percutaneous right femoral intra-aortic balloon pump, transesophageal echocardiogram performed by anesthesia. Postoperative acute blood loss anemia, expected secondary to hemodilution and preoperative anemia. Postoperative paroxysmal atrial fibrillation, a known common occurrence after cardiac surgery, not a complication. The patient was seen and examined in follow-up today March 03, 2024 at her bedside in the intensive care unit. She is currently sitting up to the bedside chair, is awake, alert, oriented x 3 and is in no acute apparent distress. She denies any complaints of pain or shortness of breath at this time. She reports she has been up ambulating in the intensive care unit hallway yesterday x 2 with standby assist from nursing and therapy staff and tolerating well with complaints of generalized weakness. Oxygen saturations are 99% on 2 L nasal cannula and she is achieving 1000 mL on her incentive spirometry with encouragement. The patient had a short self-limiting episode of atrial fibrillation this morning heart rate 108 bpm, she is currently in normal sinus rhythm with heart rate 77 bpm. Primacor drip remains infusing at 0.25 mcg/kg/min. Right IJ cordis and [place]Jamal catheter remains in place with current hemodynamics showing a cardiac output of 4.3, cardiac index 2.3, PA pressures 29/14 CVP 16 mmHg and an SVR of 1208. Right and left pleural chest tubes remain in place to low continuous wall suction -20 cm H2O. No air leak is present. Left pleural chest tube draining thin serosanguineous drainage with 280 mL output in the last 8 hours and 800 mL output in the last 24 hours. Right pleural chest tube draining thin serosanguineous drainage with 310 mL output in the last 8 hours and 800 mL output in the last 24 hours. Saldaña catheter remains in place for accurate I's and O's, urine output remains marginal with 105 mL output in the last 8 hours and 237 mL output in the last 24 hours. Chest x-ray and laboratory results were reviewed. BUN and creatinine are trending up BUN 78 today and creatinine 4.42. Objective - Vital Signs Vital signs: Vital Signs Temp 97.3 F L 03/03/24 04:00 Pulse 74 03/03/24 07:00 Resp 15 03/03/24 07:00 BP 115/59 03/03/24 07:00 Pulse Ox 99 03/03/24 07:00 FiO2 40 02/26/24 16:39 Intake & Output 03/02/24 03/03/24 03/03/24 18:59 06:59 18:59 Intake Total 1031.184 642 46 Output Total 1052 875 20 Balance -20.816 -233 26 Weight 87 kg Intake: IV 692 642 46 .9NS Cardiac Output 80 90 .9NS Pressure Bag 72 72 6 0.9 sodium chloride 440 480 40 Albumin Human 25% 50 ml 100 In Empty Bag 1 bag @ 50 mls/hr IVPB Q1H [facility] Rx#: [id number] Intake, IV Titration 99.184 Amount Milrinone-D5w Pmx 20 mg 99.184 In Dextrose/Water 1 100ml .bag @ 0.25 MCG/KG/MIN 5. 993 mls/hr IV .[id number] [facility] Rx#:[id number] Oral 240 Output: Chest Tube Drainage 950 740 10 Left Pleural Chest Tube 440 360 10 Right Pleural Chest Tube 510 380 Urine 102 135 10 Other: Voiding Method Indwelling Catheter Indwelling Catheter ABP, PAP, CO, CI - Last Documented Arterial Blood Pressure 139/47 Pulmonary Artery Pressure 28/12 Cardiac Output 4.3 Cardiac Index 2.3 - Exam CONSTITUTIONAL: Sitting up to the bedside chair in the intensive care unit, appears comfortable, cooperative, no apparent acute distress. HEENT: Neck is supple, no JVD, no lymphadenopathy. Right IJ Cordis and [place] Jamal catheter in place and functioning. RESPIRATORY: Lungs sounds essentially clear throughout, diminished to her bilateral bases. Respirations are symmetrical and nonlabored. Currently on 2 L nasal cannula with oxygen saturations 99%. Able to achieve 1000 mL on her incentive spirometry. Strong cough. CARDIOVASCULAR: Regular rhythm and rate. S1 and S2 present, negative for S3, gallop or murmur. Bedside telemetry showing normal sinus rhythm heart rate 77 bpm. Sternum is stable. Palpable peripheral pulses bilaterally. No calf pain or tenderness noted. Heart hugger in place with patient demonstrating appropriate use. Knee-high CRISTOBAL hose and sequential compression devices in place to his bilateral lower extremities. GASTROINTESTINAL: Abdomen soft, nontender, nondistended. Active bowel sounds present 4 quadrants. Passing flatus. No guarding or rigidity. Tolerating full liquid diet. GENITOURINARY: Saldaña present draining clear, yellow urine. Marginal urine output with 105 mL output in the last 8 hours. INTEGUMENTARY: Skin is warm and dry with no evidence of clubbing or cyanosis. Midline sternal incision clean dry and well approximated, covered with dry intact dressing. Left lower extremity EVH sites well approximated without redness or drainage. NEUROLOGIC: Cranial nerves II through XII intact. No focal deficits. MUSKULOSKELETAL: Able to move all extremities, strength equal bilaterally, generalized weakness. PSYCHIATRIC: Alert and oriented to person place and time, appropriate affect, intact judgment and insight. INVASIVE LINES AND TUBES: Left/right pleural chest tubes present and connected to low continuous wall suction, no air leaks present. Right internal jugular [place]/Cordis, line present. Left pleural chest tube drained 280 mL of thin serosanguineous drainage in the last 8 hours and 800 mL in the last 24 hours. Right pleural chest tube drained 310 mL of thin serosanguineous drainage in the last 8 hours and 800 mL in the last 24 hours. Current CO 4.3, CI 2.3, PA 29/14 and CVP 62 mmHg, and SVR to 1208. - Allied health notes Allied health notes reviewed: nursing - Labs CBC & Chem 7: 03/03/24 04:21 03/03/24 04:21 Labs: Abnormal Lab Results - Last 24 Hours (Table) 03/02/24 03/02/24 03/02/24 Range/Units 11:48 11:48 16:46 RBC (3.80-5.40) m/uL Hgb (11.4-16.0) gm/dL Hct (34.0-46.0) % Sodium (137-145) mmol/L BUN (7-17) mg/dL Creatinine (0.52-1.04) mg/dL Glucose (74-99) mg/dL POC Glucose (mg/dL) 301 H 286 H 187 H (70-110) mg/dL Calcium (8.4-10.2) mg/dL Alkaline Phosphatase (38-126) U/L Total Protein (6.3-8.2) g/dL Albumin (3.5-5.0) g/dL 03/02/24 03/03/24 03/03/24 Range/Units 20:05 04:21 04:21 RBC 2.70 L (3.80-5.40) m/uL Hgb 8.1 L (11.4-16.0) gm/dL Hct 26.1 L (34.0-46.0) % Sodium 133 L (137-145) mmol/L BUN 78 H (7-17) mg/dL Creatinine 4.42 H (0.52-1.04) mg/dL Glucose 73 L (74-99) mg/dL POC Glucose (mg/dL) 170 H (70-110) mg/dL Calcium 7.9 L (8.4-10.2) mg/dL Alkaline Phosphatase 130 H (38-126) U/L Total Protein 4.8 L (6.3-8.2) g/dL Albumin 2.6 L (3.5-5.0) g/dL 03/03/24 03/03/24 Range/Units 06:38 07:00 RBC (3.80-5.40) m/uL Hgb (11.4-16.0) gm/dL Hct (34.0-46.0) % Sodium (137-145) mmol/L BUN (7-17) mg/dL Creatinine (0.52-1.04) mg/dL Glucose (74-99) mg/dL POC Glucose (mg/dL) 55 L 56 L (70-110) mg/dL Calcium (8.4-10.2) mg/dL Alkaline Phosphatase (38-126) U/L Total Protein (6.3-8.2) g/dL Albumin (3.5-5.0) g/dL - Imaging and Cardiology Chest x-ray: report reviewed, image reviewed Assessment and Plan Assessment: Triple-vessel coronary artery disease, non-STEMI this admission, status post four-vessel off-pump coronary artery bypass grafting surgery Acute systolic heart failure with reduced ejection fraction, 20-25%, 35% on [place] New onset ischemic cardiomyopathy Moderate to severe mitral regurgitation on transthoracic echocardiogram, mild mitral regurgitation on A[place] Acute on chronic kidney disease Acute anemia Hypertension Hyperlipidemia, treated, cholesterol 150, LDL 72.8 Hypothyroid, TSH 1.73 Diabetes mellitus, hemoglobin A1c 7.1% CVA Hepatitis as a child Chronic kidney disease Previous tobacco dependence with recent cessation Severe COPD, preoperative FEV1 27% of predicted Previous methamphetamine use with recent cessation Family history of coronary artery disease with sister having multiple stents Postoperative acute blood loss anemia, expected given hemodilution and preoperative anemia Postoperative paroxysmal atrial fibrillation, a known common occurrence after cardiac surgery, not a complication Plan: Continue to maximize medical therapy with aspirin, statin, Plavix, and beta- alex. Will increase beta-alex as tolerated. Continue hydralazine for afterload reduction, with hold parameters. Dopamine drip has been discontinued. Continue Primacor drip at 0.25 mcg/kg/min. Continue oral amiodarone for atrial fibrillation prophylaxis, bedside telemetry showing normal sinus rhythm. Wean O2 as tolerated. Encourage incentive spirometry use 10 times every hour w hile awake. Bronchodilators per pulmonology. Increase activity, ambulate as tolerated. PT/OT/cardiac rehab following. Will monitor daily labs and chest x-rays. Electrolyte replacement per protocol. GI/DVT prophylaxis. Pain control per current medication regimen. Avoid Toradol due to kidney fail ure. Avoid nephrotoxic agents. Insulin management per internal medicine. Continue pleural chest tubes for another 24 hours and monitor output. Continue Saldaña catheter for another 24 hours, continue to record strict accurate intake and output. Keep [place]Jamal catheter in place with hemodynamic monitoring. 0.9% normal saline at KVO. Calcium gluconate 1 g IV piggyback x 1 now. Dulcolax suppository x 1 now. Daily weights. More recommendations to follow based on patient's clinical course. Time with Patient: Greater than 30
[2024-03-03] MEDS: CALCIUM GLUCONATE IN NACL 1 GM in SALINE 1 100ML.BAG IVPB ONE (08:37)
--- NOTE | 2024-03-03 09:55 | P.PN ---
Subjective Patient is seen in follow-up for acute kidney injury. Creatinine 4.42 today. Remains on Primacor. Off dopamine. Underwent CABG February 26, 2024. Blood pressure controlled. Urine output 10 to 20 cc an hour. Vital signs are stable. General: No acute distress. HEENT: Head exam is unremarkable. On nasal cannula. LUNGS: Chest tubes noted. HEART: Rate and Rhythm are regular. ABDOMEN: Nontender. EXTREMITITES: 1+ edema. Objective - Vital Signs Vital signs: Vital Signs Temp 97.3 F L 03/03/24 04:00 Pulse 74 03/03/24 07:00 Resp 15 03/03/24 07:00 BP 115/59 03/03/24 07:00 Pulse Ox 99 03/03/24 07:00 FiO2 40 02/26/24 16:39 Intake & Output 03/02/24 03/03/24 03/03/24 18:59 06:59 18:59 Intake Total 1031.184 642 138.892 Output Total 1052 875 20 Balance -20.816 -233 118.892 Weight 87 kg Intake: IV 692 642 46 .9NS Cardiac Output 80 90 .9NS Pressure Bag 72 72 6 0.9 sodium chloride 440 480 40 Albumin Human 25% 50 ml 100 In Empty Bag 1 bag @ 50 mls/hr IVPB Q1H [facility] Rx#: [id number] Intake, IV Titration 99.184 92.892 Amount Milrinone-D5w Pmx 20 mg 99.184 92.892 In Dextrose/Water 1 100ml .bag @ 0.25 MCG/KG/MIN 5. 993 mls/hr IV .[id number] [facility] Rx#:[id number] Oral 240 Output: Chest Tube Drainage 950 740 10 Left Pleural Chest Tube 440 360 10 Right Pleural Chest Tube 510 380 Urine 102 135 10 Other: Voiding Method Indwelling Catheter Indwelling Catheter ABP, PAP, CO, CI - Last Documented Arterial Blood Pressure 139/47 Pulmonary Artery Pressure 28/12 Cardiac Output 4.3 Cardiac Index 2.3 - Labs CBC & Chem 7: 03/03/24 04:21 03/03/24 04:21 Labs: Abnormal Lab Results - Last 24 Hours (Table) 03/02/24 03/02/24 03/02/24 Range/Units 11:48 11:48 16:46 RBC (3.80-5.40) m/uL Hgb (11.4-16.0) gm/dL Hct (34.0-46.0) % Sodium (137-145) mmol/L BUN (7-17) mg/dL Creatinine (0.52-1.04) mg/dL Glucose (74-99) mg/dL POC Glucose (mg/dL) 301 H 286 H 187 H (70-110) mg/dL Calcium (8.4-10.2) mg/dL Alkaline Phosphatase (38-126) U/L Total Protein (6.3-8.2) g/dL Albumin (3.5-5.0) g/dL 03/02/24 03/03/24 03/03/24 Range/Units 20:05 04:21 04:21 RBC 2.70 L (3.80-5.40) m/uL Hgb 8.1 L (11.4-16.0) gm/dL Hct 26.1 L (34.0-46.0) % Sodium 133 L (137-145) mmol/L BUN 78 H (7-17) mg/dL Creatinine 4.42 H (0.52-1.04) mg/dL Glucose 73 L (74-99) mg/dL POC Glucose (mg/dL) 170 H (70-110) mg/dL Calcium 7.9 L (8.4-10.2) mg/dL Alkaline Phosphatase 130 H (38-126) U/L Total Protein 4.8 L (6.3-8.2) g/dL Albumin 2.6 L (3.5-5.0) g/dL 03/03/24 03/03/24 Range/Units 06:38 07:00 RBC (3.80-5.40) m/uL Hgb (11.4-16.0) gm/dL Hct (34.0-46.0) % Sodium (137-145) mmol/L BUN (7-17) mg/dL Creatinine (0.52-1.04) mg/dL Glucose (74-99) mg/dL POC Glucose (mg/dL) 55 L 56 L (70-110) mg/dL Calcium (8.4-10.2) mg/dL Alkaline Phosphatase (38-126) U/L Total Protein (6.3-8.2) g/dL Albumin (3.5-5.0) g/dL Assessment and Plan Plan: Assessment: 1. Acute kidney injury secondary to ATN secondary to cardiorenal syndrome. Also from hypotension. Renal function worse. Creatinine 4.42 today. Creatinine as low as 0.98 dated March 01, 2022. No hydronephrosis noted on kidney ultrasound. Serologies negative. 2. Acute on chronic systolic CHF with ejection fraction of 20 to 25% with moderate to severe mitral regurgitation and mild pulmonary hypertension. 3. Volume overload. 4. Anemia. Iron deficiency noted - s/p IV iron completed 03/02/24. Seen by GI. Status post blood transfusion this admission. Also received IV DDAVP. 5. Metabolic acidosis secondary to acute kidney injury and IV fluids. Better. 6. Hyponatremia secondary to acute kidney injury. Hypervolemic. Better. 7. Urinary retention status post Saldaña catheter placement. Plan: Currently on IV Primacor. Off dopamine. Status post IV Lasix given March 02, 2024. Scheduled to receive another dose of albumin today. Midodrine discontinued by cardiology. Avoid nephrotoxins. Continue to monitor renal function and urine output.
[2024-03-03] MEDS: ALBUMIN HUMAN 25% 50 ML in EMPTY BAG 1 BAG IVPB ONE (10:04)
[2024-03-03 11:18] LABS: Glucose,Whole Blood 82 mg/dL (70-110)
--- NOTE | 2024-03-03 12:19 | XR ---
EXAMINATION TYPE: XR chest 1V portable DATE OF EXAM: 03/03/2024 COMPARISON: 03/02/2024 INDICATION: Postop CABG TECHNIQUE: Single frontal view of the chest is obtained. FINDINGS: The heart size is normal. Sternotomy wires are in the midline. [place]Jamal catheter is present with ti p in the main pulmonary artery region. The pulmonary vasculature is normal. The lungs are clear. Bilateral chest tubes are present. Very minimal right pneumothorax is present IMPRESSION: 1. Bilateral chest tubes and [place]-Jamal catheter discussed above. 2. Small stable left apical pneumothorax.
--- NOTE | 2024-03-03 13:06 | P.PN ---
Subjective Progress Note Date: 03/03/24 Patient 02/26/2024, the patient is being seen immediately after she arrived to the intensive care unit. This patient has been in the hospital for almost 2 weeks. She sustained an acute non-ST segment elevation myocardial infarction. She has severe ischemic cardiomyopathy with an ejection fraction of 20 to 25% along with moderate to severe mitral regurgitation. The patient was optimized and subsequently the patient was taken to the operating room for cardiac revascularization surgery. The patient is known to have COPD, diabetes mellitus type 1, hypertension hyperlipidemia previous history of CVA and hypothyroidism along with fibromyalgia. She is a chronic smoker who carries [id number] smoki ng history. The patient underwent off-pump coronary bypass surgery x 4 with sequential RUSSO to LAD and diagonal and SVG to PDA and second obtuse marginal and closure of the left atrial appendage. An intra-aortic balloon pump was also inserted intraoperatively. At this point in time, the patient is intubated and on mechanical ventilator. The patient was on assist-control mode of mechanical ventilation at the rate of 14, tidal volume of 400 with an FiO2 of 100% with a PEEP of 5. The patient had an initial blood gas that showed a pH of 7.34 with pCO2 of 46 and pO2 of 265. Based on that, the FiO2 was gradually weaned off and the respiratory rate was increased up to 22. Subsequently, the patient remained hemodynamically stable. In fact, her current cardiac output is at 4.8 with an index of 2.6 while being augmented with a one-to-one intra-aortic balloon pump support with a mean augmented arterial pressure of 83-85. She has been on nitroglycerin drip which is running at 5 mg/min and she is also on dopamine at 3 mcg/kg/min. The patient is producing adequate amount of cardiac output. Cardiac rhythm is sinus and the patient is currently on amiodarone. The chest x-ray that was done in the ICU shows adequate expansion of both lungs. The patient has a right IJ Dan[place]-Jamal catheter in place and ET tube is around 2 cm above the anthony and the patient has a right pleural left pleural and mediastinal chest tube. Output from the chest tubes have been essentially low in the order of 100-150 cc from the chest tube just arrived from the operating room. Based on her stable condition, the patient was taken gradually off the propofol and the patient is currently undergoing a spontaneous breathing trial with a pressure support of 5 and a PEEP of 5. The weaning parameters were karie quate. The blood work today postop showed a sodium level of 136 with a potassium level of 4.2, BUN is 57 with a creatinine of 2.6 and the patient has a white cell count of 4.9 with a hemoglobin of 9 and a platelet count of 252. She is arousable and she is following commands and moving all 4 extremities without any limitation. She is currently afebrile. 02/27/2024, patient is being seen for a follow-up. Noted the patient is postop day #1 following a coronary artery bypass surgery. The patient underwent an off-pump four-vessel bypass surgery. She required intra-aortic balloon pump support postoperatively. The patient is currently doing well. She is extubated on 2 L of oxygen by nasal cannula. Intra-aortic balloon pump was removed today. Dan[place]-Jamal catheter still in place. PA pressures of 37/60. CVP is at 13. Cardiac output is at 5.1 with an index of 2.7. The left lower chest tube has drained 460 cc over the past 24 hours, right lower chest tube and drain 240 cc in the mediastinum has drained 200 cc. The patient is still on nitroglycerin drip at low-dose. Remains on insulin drip at 1.5 units an hour. Remains on a amiodarone maintenance of 0.5 mg/min and the patient is on a normal sinus rhythm. Dopamine is running at 2 mcg/kg/min. No specific complaints. Resting comfortably in bed. Chest x-ray shows no evidence of any pneumothorax. Lungs are well-expanded and the tubes are in place. WBC count of 8.1 with a hemoglobin 9.4 and a platelet count of 328. Sodium is at 134, BUN is 57 with a creatinine of 2.6 and a serum bicarb is at 21. Blood sugars are under adequate control at this point in time while being on insulin drip. Awake and alert and communicating. On 02/28/2024, I am seeing the patient for a follow-up. The patient is postop day #2. Awake and alert and sitting up in the chair. Mediastinal chest tube has been removed. Right lower chest tube and drains are out 4 the intra-aortic balloon pump has been removed. Exit site is clean. The patient remains on dopamine 70 cc over the past 24 hours and a left pleural chest tube with drain 870 cc over the past 24 hours. The patient is currently on 2 L of O2 nasal cannula. At 2 mcg/kg/min. The patient has been switched to oral amiodarone 4 mg p.o. twice a day and the patient is also on metoprolol 12.5 mg twice a day and the patient on aspirin and Plavix. Insulin drip is still running at 1 unit an hour. Using incentive spirometer, pulling approximately 500 cc. Blood work from today shows WBC count of 12.4 with a hemoglobin 10.2, BUN 62 with a creatinine of 3.07 and a sodium levels at 135 with a bicarb level is at 20. Chest x-ray shows essentially postsurgical changes. Mediastinal chest tube has been removed. The right and the pleural chest tubes are still in place. Cannot rule out very tiny apical pneumothoraces. There is some mild pulm vessel congestion. Otherwise, no other significant events overnight and the patient is alert and awake and communicating. 02/29/2024, the patient is being seen in cardiac follow-up. The patient is postop day #3 post four-vessel coronary bypass surgery. The surgical report has been removed. This morning, the patient is sitting up on a chair. Nevertheless, there has been some hemodynamic changes and the patient became hypotensive overnight. The patient was initially given 25% of albumin, 50 cc and subsequently the patient was given 5% albumin and total of 500 cc and currently she is receiving another dose of albumin 250 cc of 5% albumin. Dopamine was dropped to 1.5 mcg/kg/min which currently appears to have lower blood pressure and his systolic blood pressure currently is in the mid 80s. Cardiac output and index 3.0 and 1.6 respectively. Pulmonary artery pressures of 34/10. The mixed venous saturation is low at 40. The patient has a right pleural and left lower chest tube. Output from the right ear to 85 cc an hour. Present for 395 L over the past 24 hours. Chest x-ray shows increased pulm vascular markings. Atelectatic change in lung bases. Chest tubes are in good location. No evidence of any air leak in the Pleur-evac. The patient remains on oxygen and 3 L/min nasal cannula. The patient is also on normal citrate of 80 cc an hour. The blood work from today shows a BUN of 66 with a creatinine of 3.6 and the patient has developed interval worsening of renal function. Sodium level is at 131 with a potassium level of 5.1. LFTs are normal. The risk of 9.9 with a hemoglobin of 9.2 and a platelet count of 284. She is awake and alert and communicating. She is afebrile for now. As mentioned, she remains on 3 L of O2 nasal cannula. On 03/01/2024, the patient is being seen for a follow-up. She is sitting up on a chair. The patient was started on Primacor at 0.25 mcg/kg/min and the cardiac output today is at 4.2 with an index of 2.4. PA pressure 34/12. CVP is at 17. She remains on dopamine at 3 mcg/kg/min. She continues to have bilateral chest tube, the right fluid has drained 160 cc over the past 8 hours, 5 and 6 over the past 24 hours, left has drained around 260 cc over the past 8 hours and 650 over the past 24 hours. Chest x-ray still showing postsurgical changes. Chest tubes are in good location. Dan[place]-Jamal catheter is in place. Questionable tiny apical pneumothoraces bilaterally. The mixed venous oxygen saturation is improved and is currently up to 57. Limited because of 8.8 with a hemoglobin of 8.7. BUN is 73 with a creatinine of 3.9 and a serum bicarb is at 16. Cardiac rhythm is sinus. Hemodynamically stable and improved while being on Primacor and do pamine. Awake and alert. No other significant events overnight. The patient is postop day #4 03/02/2024, patient is being seen for a follow-up. Patient is doing well on 2 L of oxygen nasal cannula. Remains on Primacor at 0.25 mcg/kg/min and remains on dopamine. Dopamine was running at 2.5 mcg and this was weaned down to 2 mcg and this resulted in drop in the cardiac output. Based on that, it was brought back up to 2.5 mcg and the most recent cardiac output is at 3.4 with an index of 1.8. PA pressures of 30/7 with a CVP of 12 and the cardiac rhythm is sinus. Left- sided chest tube and drains to 60 cc over the past 8700 over the past 24 hours, right-sided chest tube has drained to 20 cc over the past 8 hours and thousand and 20 cc over the past 24 hours. The patient is also on midodrine. The patient is on Levemir insulin 15 units twice daily. Awake and alert. No focal neurological deficit. Chest x-ray shows questionable apical pneumothorax which is very tiny. Chest tubes are in good location. There are some pulm vascular congestion. Blood work shows a BUN of 78 with a creatinine of 4.2 and there is a steady rise in the creatinine. Serum bicarb is at 18 with a sodium level of 130, potassium level is at 4.5, the risk is at 7.7 with a hemoglobin 8.6. Patient was started on hydralazine 20 mg p.o. every 6 hours. Remains on aspirin and Plavix. Patient is postop day #5. 03/03/2024, patient is postop day #6. The patient is off dopamine. The patient is on Primacor 0.25 mcg/kg/min. Urine output is adequate. Currently on 30s of oxygen by nasal cannula. She did have a short run of paroxysmal atrial fibrillation (4 around 5 minutes that she converted back into normal sinus rhythm. Cardiac output is 3.8 with an index of 2.1. PA pressure 25/13. Output from both chest has not been in the order of 800 cc over the past 24 hours. No other new complaints. No chest pain. No shortness of breath. BUN 78 and a creatinine of 4.4. Sodium is at 133, WBC count 6.8 with a hemoglobin of 8.1. Currently on a combination of amiodarone for A-fib prophylaxis at 40 mg p.o. twice a day. The patient also metoprolol 12.5 mg p.o. twice daily and hydralazine 20 mg 4 times a day. The patient is also on a combination of aspirin and Plavix. Serum bicarb level has improved. Objective - Vital Signs Vital signs: Vital Signs Temp 97.3 F L 03/03/24 04:00 Pulse 74 03/03/24 07:00 Resp 15 03/03/24 07:00 BP 115/59 03/03/24 07:00 Pulse Ox 99 03/03/24 07:00 FiO2 40 02/26/24 16:39 Intake & Output 03/02/24 03/03/24 03/03/24 18:59 06:59 18:59 Intake Total 1031.184 642 138.892 Output Total 1052 875 20 Balance -20.816 -233 118.892 Weight 87 kg Intake: IV 692 642 46 .9NS Cardiac Output 80 90 .9NS Pressure Bag 72 72 6 0.9 sodium chloride 440 480 40 Albumin Human 25% 50 ml 100 In Empty Bag 1 bag @ 50 mls/hr IVPB Q1H LYNDSAY Rx#: [id number] Intake, IV Titration 99.184 92.892 Amount Milrinone-D5w Pmx 20 mg 99.184 92.892 In Dextrose/Water 1 100ml .bag @ 0.25 MCG/KG/MIN 5. 993 mls/hr IV .[id number] LYNDSAY Rx#:[id number] Oral 240 Output: Chest Tube Drainage 950 740 10 Left Pleural Chest Tube 440 360 10 Right Pleural Chest Tube 510 380 Urine 102 135 10 Other: Voiding Method Indwelling Catheter Indwelling Catheter ABP, PAP, CO, CI - Last Documented Arterial Blood Pressure 139/47 Pulmonary Artery Pressure 28/12 Cardiac Output 4.3 Cardiac Index 2.3 - Exam GENERAL EXAM: Alert, 58-year-old white female, resting comfortably in bed, the patient is awake and oriented x 3 on 2 L of oxygen by nasal cannula, extubated HEAD: Normocephalic and atraumatic EYES: Normal reaction of pupils, equal size. NOSE: Clear with pink turbinates. THROAT: No erythema or exudates. NECK: No masses, no JVD. CHEST: No chest wall deformity. LUNGS: The patient has a right lower and left sided chest tube. Thoracotomy scar is dry clean and intact. Breath sounds equal and symmetrical bilaterally. CVS: S1 and S2 normal with no audible murmur, regular rhythm. No extra heart sounds ABDOMEN: No hepatosplenomegaly, active bowel sounds, no guarding or rigidity. SPINE: No scoliosis or deformity SKIN: No rashes CENTRAL NERVOUS SYSTEM: No focal deficits, tone is normal in all 4 extremities. EXTREMITIES: There is bilateral lower has equal and symmetrical pulses in the lower extremities bilaterally. The patient has amputation of the right great toe. Extremities are warm. - Labs CBC & Chem 7: 03/03/24 04:21 03/03/24 04:21 Labs: Abnormal Lab Results - Last 24 Hours (Table) 03/02/24 03/02/24 03/02/24 Range/Units 11:48 11:48 16:46 RBC (3.80-5.40) m/uL Hgb (11.4-16.0) gm/dL Hct (34.0-46.0) % Sodium (137-145) mmol/L BUN (7-17) mg/dL Creatinine (0.52-1.04) mg/dL Glucose (74-99) mg/dL POC Glucose (mg/dL) 301 H 286 H 187 H (70-110) mg/dL Calcium (8.4-10.2) mg/dL Alkaline Phosphatase (38-126) U/L Total Protein (6.3-8.2) g/dL Albumin (3.5-5.0) g/dL 03/02/24 03/03/24 03/03/24 Range/Units 20:05 04:21 04:21 RBC 2.70 L (3.80-5.40) m/uL Hgb 8.1 L (11.4-16.0) gm/dL Hct 26.1 L (34.0-46.0) % Sodium 133 L (137-145) mmol/L BUN 78 H (7-17) mg/dL Creatinine 4.42 H (0.52-1.04) mg/dL Glucose 73 L (74-99) mg/dL POC Glucose (mg/dL) 170 H (70-110) mg/dL Calcium 7.9 L (8.4-10.2) mg/dL Alkaline Phosphatase 130 H (38-126) U/L Total Protein 4.8 L (6.3-8.2) g/dL Albumin 2.6 L (3.5-5.0) g/dL 03/03/24 03/03/24 Range/Units 06:38 07:00 RBC (3.80-5.40) m/uL Hgb (11.4-16.0) gm/dL Hct (34.0-46.0) % Sodium (137-145) mmol/L BUN (7-17) mg/dL Creatinine (0.52-1.04) mg/dL Glucose (74-99) mg/dL POC Glucose (mg/dL) 55 L 56 L (70-110) mg/dL Calcium (8.4-10.2) mg/dL Alkaline Phosphatase (38-126) U/L Total Protein (6.3-8.2) g/dL Albumin (3.5-5.0) g/dL Assessment and Plan Assessment: Multivessel coronary artery disease and the patient is status post acute non-ST elevation NH, the patient underwent four-vessel bypass surgery off-pump which included sequential RSUSO to To the LAD and diagonal and SVG to PDA and second obtuse marginal branch and the patient is currently postop day day # 6. Remains on Primacor and she is off dobutamine. Hemodynamic parameters were noted. Will continue pressors for now. Monitor urine output. Monitor renal function. Monitor output from the chest tubes in the chest about was still active. As such, the chest will be kept in place. Acute hypoxic respiratory failure currently on 2 L of oxygen by nasal cannula Postthoracotomy, currently intubated on the mechanical ventilator. Mediastinal chest tube has been removed. The patient has a right pleural and left lower chest tubes in place. Output from the chest has not been noted. No respiratory distress for now. Output from the chest tube is still considerably high normal keep the chest in the place for another 24 hours Ischemic cardiomyopathy with an estimated left ventricular ejection fraction severely impaired at 20 to 25% as well as moderate to severe mitral valve regurgitation Normocytic normochromic anemia, stable hemoglobin Chronic kidney disease stage III with a component of acute kidney injury. pat ient also has a component of anion gap metabolic acidosis. . Non-anion gap metabolic acidosis improved. Creatinine is on the rise and is currently up to 4.2. Chronic obstructive pulmonary disease, stable Diabetes mellitus type 1, had HbA1c at the time of admission was 7.1 History of hyperlipidemia History of hypertension History of CVA/TIA History of hypothyroidism History of fibromyalgia History of GERD Mildly elevated LFTs, hepatitis panel nonreactive Former tobacco smoker as of 55 days ago, before this 1/2 pack/day or approximately 15-year pack history' Previous history of methamphetamine use Plan: Oxygen at 2 -3 L/min nasal cannula and encourage use of incentive spirometer. Right and left pleural chest tube In place, continue monitoring the output Continue Primacor which is running at 0.25 mcg/kg/min. Patient is off dopamine Serum bicarb level is improved Patient was given IV calcium Continue metoprolol 12.5 mg twice daily Continue hydralazine Discontinue midodrine Continue aspirin and Plavix Continue oral amiodarone Monitor electrolytes Chest x-ray was noted Danbury-Jamal catheter to be kept in place Levemir insulin 20 units twice daily and sliding scale insulin coverage. Pain management Monitor renal function Will continue to follow and make further recommendations based on her progress. This is coordinated with the cardiothoracic team.
[2024-03-03 16:29] LABS: Glucose,Whole Blood 215 mg/dL (70-110)
[2024-03-03 20:03] LABS: Glucose,Whole Blood 235 mg/dL (70-110)
[2024-03-03] MEDS: INSULIN DETEMIR (LEVEMIR) 100 UNIT/ML SYR SQ SCH (20:17)
--- NOTE | 2024-03-04 02:10 | PN ---
PROGRESS NOTE DATE OF SERVICE: 03/03/2024 SUBJECTIVE: This is a 58-year-old woman who was admitted with CHF acute exacerbation, also had a CAD, and CABG. The patient had significant output from the chest tube which has been maintained at this time. The patient received Lasix before. The chest x-ray was reviewed. The patient has some hypoalbuminemia also. PAST MEDICAL HISTORY: Reviewed. REVIEW OF SYSTEMS: Fourteen-point review of systems is negative as mentioned earlier. PHYSICAL EXAMINATION: VITAL SIGNS: Pulse is 62, blood pressure 112/70, and respirations 12. HEENT: Conjunctivae normal. CARDIOVASCULAR: S1 and S2. RESPIRATIONS: Diminished breath sounds at the bases. Few scattered rhonchi. ABDOMEN: Soft, nontender. LABORATORY DATA: Creatinine 4.42. The rest of the labs are noted. ASSESSMENT: 1. Acute itf-IC-[id number] elevation myocardial infarction, multivessel coronary disease, status post coronary artery disease, coronary artery bypass grafting. 2. Acute hypoxic respiratory failure, status post mechanical ventilation. 3. Ischemic cardiomyopathy with acute systolic dysfunction, ejection fraction 20% to 24%. 4. Worsening acute on chronic kidney disease and kidney failure. 5. Acute urinary retention. 6. Diabetes mellitus, type 2. 7. 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 8. Multiple complex medical issues. RECOMMENDATIONS: I recommend to continue current management and treatment. Monitor creatinine closely and monitor fluid electrolyte balance also closely. I's and O's show some negative balance. Avoid nephrotoxic medications. Closely follow with Cardiology, Cardiothoracic Surgery, and multiple other consultants. Guarded prognosis. Further recommendations to follow. See orders for details. MMODL / IJN: [id number] /
[2024-03-04 06:29] LABS: ALT 6 U/L (4-34); AST 27 U/L (14-36); African American GFR (CKD) 12 (>60 ml/min/1.73 sqM); Albumin 2.5 g/dL (3.5-5.0); Alkaline Phosphatase 129 U/L (38-126); Anion Gap 7 mmol/L; Blood Urea Nitrogen 82 mg/dL (7-17); Calcium 8.1 mg/dL (8.4-10.2); Carbon Dioxide 21 mmol/L (22-30); Chloride 104 mmol/L (98-107); Glucose 123 mg/dL (74-99); Magnesium 1.8 mg/dL (1.6-2.3); Non-African American GFR(CKD) 10 (>60 ml/min/1.73 sqM); Potassium 4.4 mmol/L (3.5-5.1); Sodium 132 mmol/L (137-145); Total Bilirubin 0.4 mg/dL (0.2-1.3); Total Protein 4.9 g/dL (6.3-8.2)
[2024-03-04 06:50] LABS: Glucose,Whole Blood 118 mg/dL (70-110)
[2024-03-04] MEDS: MAGNESIUM SULFATE-D5W PMX 1 GM in DEXTROSE/WATER 1 100ML.BAG IVPB ONE (07:05)
--- NOTE | 2024-03-04 07:29 | XR ---
EXAMINATION TYPE: XR chest 1V portable DATE OF EXAM: 03/04/2024 5:40 AM CLINICAL INDICATION:Female, 58 years old with history of Postop CABG; [facility] COMPARISON: Chest radiograph from one day prior. TECHNIQUE: XR chest 1V portable Frontal view of the chest. FINDINGS: Lungs/Pleura: Small bilateral pneumothorax on today's exam. There is no evidence of pleural effusion, focal consolidation, Pulmonary vascularity: Unremarkable. Heart/mediastinum: Cardiomediastinal silhouette is enlarged and stable. Left atrial appendage occlusi on device is present. Loop recorder is present. Musculoskeletal: No acute osseous pathology. Other findings: None Lines/Tubes: There is a Kincaid-Jamal catheter with tip projecting over the spine. Bilateral thoracotomy tubes are present. IMPRESSION: 1. Small bilateral apical pneumothorax on today's exam.. 2. Post surgical changes with pulmonary vascular congestion.
[2024-03-04] MEDS: CALCIUM GLUCONATE IN NACL 1 GM in SALINE 1 100ML.BAG IVPB ONE (07:45)
--- NOTE | 2024-03-04 07:57 | P.PN ---
Subjective Progress Note Date: 03/04/24 Principal diagnosis: Triple-vessel coronary artery disease, non-STEMI this admission, acute heart failure with reduced ejection fraction, new onset ischemic cardiomyopathy, moderate to severe mitral regurgitation, acute on chronic kidney disease, acute anemia. History of hypertension, hyperlipidemia, hypothyroid, diabetes mellitus, CVA, hepatitis as a child, CKD stage IV, previous tobacco dependence with recent cessation, severe COPD, previous methamphetamine use with recent cessation, family history of coronary artery disease POD #7 Off-pump CABG x 4 with sequential left internal mammary artery to left anterior descending coronary artery and diagonal coronary artery, reverse saphenous vein graft to the posterior descending coronary artery and second obtuse marginal coronary artery, closure of the left atrial appendage with 35mm AtriCure clip, placement of percutaneous right femoral intra-aortic balloon pump, transesophageal echocardiogram performed by anesthesia. Postoperative acute blood loss anemia, expected secondary to hemodilution and preoperative anemia Postoperative paroxysmal atrial fibrillation, a known common occurrence after cardiac surgery, not a complication The patient was seen and examined this morning sitting up in recliner in the intensive care unit in no acute distress eating breakfast. States pain is controlled on current medication regimen, denies shortness of breath except with ambulation. Currently in sinus rhythm, hemodynamically stable on IV Primacor. Currently on room air with oxygen saturation in the low to mid 90s. Only able to achieve 750 mL on her incentive spirometry. IV dopamine was stopped yesterday due to A-fib with RVR, patient did receive all doses of oral amio/Lopressor/hydralazine yesterday. She has been ambulatory with assistance and use of a walker for balance. She is currently in good spirits and her only complaint is of lower extremity edema, explanation given regarding reason for lower extremity edema. Chest x-ray, labs reviewed. Discussed with Dr. José. No other new concerns. Objective - Vital Signs Vital signs: Vital Signs Temp 97.5 F L 03/04/24 04:00 Pulse 67 03/04/24 07:00 Resp 13 03/04/24 07:00 BP 95/85 03/04/24 07:00 Pulse Ox 95 03/04/24 07:00 FiO2 40 02/26/24 16:39 Intake & Output 03/03/24 03/04/24 03/04/24 18:59 06:59 18:59 Intake Total 814.892 892 46 Output Total 929 695 73 Balance -114.108 197 -27 Weight 86.9 kg Intake: IV 602 642 46 .9NS Cardiac Output 50 90 .9NS Pressure Bag 72 72 6 0.9 sodium chloride 480 480 40 Intake, IV Titration 92.892 100 Amount Milrinone-D5w Pmx 20 mg 92.892 100 In Dextrose/Water 1 100ml .bag @ 0.25 MCG/KG/MIN 5. 993 mls/hr IV .[id number] [facility] Rx#:[id number] Oral 120 150 Output: Chest Tube Drainage 800 520 58 Left Pleural Chest Tube 410 300 18 Right Pleural Chest Tube 390 220 40 Urine 129 175 15 Other: Voiding Method Indwelling Catheter Indwelling Catheter # Bowel Movements 1 ABP, PAP, CO, CI - Last Documented Arterial Blood Pressure 139/47 Pulmonary Artery Pressure 26/15 Cardiac Output 3.3 Cardiac Index 1.8 - Exam CONSTITUTIONAL: Appears comfortable, cooperative, no acute distress RESPIRATORY: Lungs sounds diminished bilaterally. Respirations even, nonlabored. Currently on room air with oxygen saturation 94%. Able to achieve 750 mL on incentive spirometry. Weak cough. CARDIOVASCULAR: S1, S2 present. Regular rate and rhythm, sinus rhythm on telemetry. Sternum stable. Palpable peripheral pulses bilaterally. Bilateral lower extremity edema present. No calf pain or tenderness noted. Heart hugger in place with patient demonstrating appropriate use. Antiembolism stockings, SCDs present. GASTROINTESTINAL: Abdomen soft, nontender, nondistended. Active bowel sounds present 4 quadrants. Tolerating diet. Positive bowel movement 03/03 GENITOURINARY: Saldaña present draining clear, yellow urine. Output overnight 10-25 mL per hour, 300 mL in the last 24 hours INTEGUMENTARY: Skin is warm and dry with evidence of good perfusion. Anterior chest incision well approximated and covered with dry intact dressing. Left lower extremity EVH site well approximated without redness or drainage. NEUROLOGIC: Cranial nerves II through XII intact MUSKULOSKELETAL: Able to move all extremities, strength equal bilaterally PSYCHIATRIC: Alert and oriented to person place and time, appropriate affect, intact judgment and insight INVASIVE LINES AND TUBES: Left/right pleural chest tubes present and connected to wall suction, no air leaks present. Left pleural chest tube with 250 mL serosanguineous drainage overnight, 680 mL in the last 24 hours. Right pleural chest tube with 180 mL serosanguineous drainage overnight, 650 mL last 24 hours. Right internal jugular [place]/Cordis present. Last CO/CI 3.3/1.8, PA /, CVP 7. - Allied health notes Allied health notes reviewed: nursing - Labs CBC & Chem 7: 03/03/24 04:21 03/04/24 06:00 Labs: Abnormal Lab Results - Last 24 Hours (Table) 03/03/24 03/03/24 03/04/24 Range/Units 16:27 20:02 06:00 Sodium 132 L (137-145) mmol/L Carbon Dioxide 21 L (22-30) mmol/L BUN 82 H (7-17) mg/dL Creatinine 4.45 H (0.52-1.04) mg/dL Glucose 123 H (74-99) mg/dL POC Glucose (mg/dL) 215 H 235 H (70-110) mg/dL Calcium 8.1 L (8.4-10.2) mg/dL Alkaline Phosphatase 129 H (38-126) U/L Total Protein 4.9 L (6.3-8.2) g/dL Albumin 2.5 L (3.5-5.0) g/dL 03/04/24 Range/Units 06:49 Sodium (137-145) mmol/L Carbon Dioxide (22-30) mmol/L BUN (7-17) mg/dL Creatinine (0.52-1.04) mg/dL Glucose (74-99) mg/dL POC Glucose (mg/dL) 118 H (70-110) mg/dL Calcium (8.4-10.2) mg/dL Alkaline Phosphatase (38-126) U/L Total Protein (6.3-8.2) g/dL Albumin (3.5-5.0) g/dL - Imaging and Cardiology Chest x-ray: report reviewed, image reviewed Assessment and Plan Assessment: Triple-vessel coronary artery disease, non-STEMI this admission, status post four-vessel off-pump CABG Acute heart failure with reduced ejection fraction, 20-25%, 35% on [place] New onset ischemic cardiomyopathy Moderate to severe mitral regurgitation on transthoracic echocardiogram, mild mitral regurgitation on [place] Acute on chronic kidney disease secondary to ATN secondary to cardiorenal syndrome Acute anemia Hypertension Hyperlipidemia, treated, cholesterol 150, LDL 72.8 Hypothyroid, TSH 1.73 Diabetes mellitus, hemoglobin A1c 7.1% CVA Hepatitis as a child CKD Previous tobacco dependence with recent cessation Severe COPD, preoperative FEV1 27% of predicted Previous methamphetamine use with recent cessation Family history of coronary artery disease with sister having multiple stents Postoperative acute blood loss anemia, expected Postoperative paroxysmal atrial fibrillation, status post ligation of the left atrial appendage, currently sinus Plan: Continue to maximize medical therapy with aspirin, statin, Plavix, beta-alex. Will increase beta-alex as tolerated. Continue hydralazine for afterload reduction Continue Primacor at current dose Continue oral amiodarone for A-fib prophylaxis, will decrease dose to 200 mg twice daily tomorrow Encourage incentive spirometry use 10 times every hour while awake. Bronchodilators per pulmonology Increase activity, ambulate as tolerated. PT/OT/cardiac rehab consulted Will monitor daily labs and x-rays. Electrolyte replacement per protocol. Will give concentrated albumin, IV calcium GI/DVT prophylaxis Pain control per current medication regimen. Avoid Toradol due to kidney failure Insulin management per internal medicine Continue pleural chest tubes for another 24 hours and monitor output Continue Saldaña catheter for another 24 hours, continue to record strict accurate intake and output Daily weights More recommendations to follow
[2024-03-04] MEDS: ALBUMIN HUMAN 25% 50 ML in EMPTY BAG 1 BAG IVPB ONE (08:22)
--- NOTE | 2024-03-04 10:16 | P.PN ---
Subjective Patient is seen in follow-up for acute kidney injury. Creatinine stable at 4.45 today. Remains on Primacor. Off dopamine. Underwent CABG February 26, 2024. Blood pressure stable. Urine output 10 to 20 cc an hour. Vital signs are stable. General: No acute distress. HEENT: Head exam is unremarkable. On nasal cannula. LUNGS: Chest tubes noted. HEART: Rate and Rhythm are regular. ABDOMEN: Nontender. EXTREMITITES: 1+ edema. Objective - Vital Signs Vital signs: Vital Signs Temp 97.0 F L 03/04/24 08:00 Pulse 67 03/04/24 08:00 Resp 14 03/04/24 08:00 BP 110/79 03/04/24 08:00 Pulse Ox 93 L 03/04/24 08:00 FiO2 40 02/26/24 16:39 Intake & Output 03/03/24 03/04/24 03/04/24 18:59 06:59 18:59 Intake Total 814.892 892 354 Output Total 929 695 328 Balance -114.108 197 26 Weight 86.9 kg Intake: IV 602 642 234 .9NS Cardiac Output 50 90 50 .9NS Pressure Bag 72 72 24 0.9 sodium chloride 480 480 160 Intake, IV Titration 92.892 100 Amount Milrinone-D5w Pmx 20 mg 92.892 100 In Dextrose/Water 1 100ml .bag @ 0.25 MCG/KG/MIN 5. 993 mls/hr IV .[id number] [facility] Rx#:[id number] Oral 120 150 120 Output: Chest Tube Drainage 800 520 288 Left Pleural Chest Tube 410 300 148 Right Pleural Chest Tube 390 220 140 Urine 129 175 40 Other: Voiding Method Indwelling Catheter Indwelling Catheter Indwelling Catheter # Bowel Movements 1 ABP, PAP, CO, CI - Last Documented Arterial Blood Pressure 139/47 Pulmonary Artery Pressure 35/20 Cardiac Output 4.2 Cardiac Index 2.3 - Labs CBC & Chem 7: 03/03/24 04:21 03/04/24 06:00 Labs: Abnormal Lab Results - Last 24 Hours (Table) 03/03/24 03/03/24 03/04/24 Range/Units 16:27 20:02 06:00 Sodium 132 L (137-145) mmol/L Carbon Dioxide 21 L (22-30) mmol/L BUN 82 H (7-17) mg/dL Creatinine 4.45 H (0.52-1.04) mg/dL Glucose 123 H (74-99) mg/dL POC Glucose (mg/dL) 215 H 235 H (70-110) mg/dL Calcium 8.1 L (8.4-10.2) mg/dL Alkaline Phosphatase 129 H (38-126) U/L Total Protein 4.9 L (6.3-8.2) g/dL Albumin 2.5 L (3.5-5.0) g/dL 03/04/24 Range/Units 06:49 Sodium (137-145) mmol/L Carbon Dioxide (22-30) mmol/L BUN (7-17) mg/dL Creatinine (0.52-1.04) mg/dL Glucose (74-99) mg/dL POC Glucose (mg/dL) 118 H (70-110) mg/dL Calcium (8.4-10.2) mg/dL Alkaline Phosphatase (38-126) U/L Total Protein (6.3-8.2) g/dL Albumin (3.5-5.0) g/dL Assessment and Plan Plan: Assessment: 1. Acute kidney injury secondary to ATN secondary to cardiorenal syndrome. Also from hypotension. Renal function worse. Creatinine 4.45 today. Cre atinine as low as 0.98 dated March 01, 2022. No hydronephrosis noted on kidney ultrasound. Serologies negative. 2. Acute on chronic systolic CHF with ejection fraction of 20 to 25% with moderate to severe mitral regurgitation and mild pulmonary hypertension. 3. Volume overload. 4. Anemia. Iron deficiency noted - s/p IV iron completed 03/02/24. Seen by GI. Status post blood transfusion this admission. Also received IV DDAVP. 5. Metabolic acidosis secondary to acute kidney injury and IV fluids. Better. 6. Hyponatremia secondary to acute kidney injury. Hypervolemic. Better. 7. Urinary retention status post Saldaña catheter placement. Plan: Currently on IV Primacor. Off dopamine. Status post IV albumin given yesterday. Lasix 40 mg IV once today. Midodrine discontinued by cardiology. Avoid nephrotoxins. Continue to monitor renal function and urine output.
[2024-03-04] MEDS: FUROSEMIDE 10 MG/ML 4 ML VIAL IV STA (10:39)
[2024-03-04 11:39] LABS: Glucose,Whole Blood 218 mg/dL (70-110)
[2024-03-04 13:33] LABS: Basophils % (A) 1 %; Eosinophils # (A) 0.4 k/uL (0-0.7); Eosinophils % (A) 8 %; HCT 29.3 % (34.0-46.0); HGB 8.8 gm/dL (11.4-16.0); Hypochromasia Marked; Lymphocytes # (A) 1.1 k/uL (1.0-4.8); Lymphocytes % (A) 20 %; MCH 29.8 pg (25.0-35.0); MCV 99.1 fL (80.0-100.0); Macrocytosis Slight; Mean Platelet Volume 10.8; Monocytes # (A) 0.5 k/uL (0-1.0); Monocytes % (A) 9 %; Neutrophils # (A) 3.3 k/uL (1.3-7.7); Neutrophils % (A) 61 %; Platelet Count 353 k/uL (150-450); RBC 2.96 m/uL (3.80-5.40); RDW 14.9 % (11.5-15.5); WBC 5.5 k/uL (3.8-10.6)
--- NOTE | 2024-03-04 13:35 | P.PN ---
Subjective Progress Note Date: 03/04/24 Patient 02/26/2024, the patient is being seen immediately after she arrived to the intensive care unit. This patient has been in the hospital for almost 2 weeks. She sustained an acute non-ST segment elevation myocardial infarction. She has severe ischemic cardiomyopathy with an ejection fraction of 20 to 25% along with moderate to severe mitral regurgitation. The patient was optimized and subsequently the patient was taken to the operating room for cardiac revascularization surgery. The patient is known to have COPD, diabetes mellitus type 1, hypertension hyperlipidemia previous history of CVA and hypothyroidism along with fibromyalgia. She is a chronic smoker who carries [id number] smoki ng history. The patient underwent off-pump coronary bypass surgery x 4 with sequential RUSSO to LAD and diagonal and SVG to PDA and second obtuse marginal and closure of the left atrial appendage. An intra-aortic balloon pump was also inserted intraoperatively. At this point in time, the patient is intubated and on mechanical ventilator. The patient was on assist-control mode of mechanical ventilation at the rate of 14, tidal volume of 400 with an FiO2 of 100% with a PEEP of 5. The patient had an initial blood gas that showed a pH of 7.34 with pCO2 of 46 and pO2 of 265. Based on that, the FiO2 was gradually weaned off and the respiratory rate was increased up to 22. Subsequently, the patient remained hemodynamically stable. In fact, her current cardiac output is at 4.8 with an index of 2.6 while being augmented with a one-to-one intra-aortic balloon pump support with a mean augmented arterial pressure of 83-85. She has been on nitroglycerin drip which is running at 5 mg/min and she is also on dopamine at 3 mcg/kg/min. The patient is producing adequate amount of cardiac output. Cardiac rhythm is sinus and the patient is currently on amiodarone. The chest x-ray that was done in the ICU shows adequate expansion of both lungs. The patient has a right IJ Needham-Jamal catheter in place and ET tube is around 2 cm above the anthony and the patient has a right pleural left pleural and mediastinal chest tube. Output from the chest tubes have been essentially low in the order of 100-150 cc from the chest tube just arrived from the operating room. Based on her stable condition, the patient was taken gradually off the propofol and the patient is currently undergoing a spontaneous breathing trial with a pressure support of 5 and a PEEP of 5. The weaning parameters were karie quate. The blood work today postop showed a sodium level of 136 with a potassium level of 4.2, BUN is 57 with a creatinine of 2.6 and the patient has a white cell count of 4.9 with a hemoglobin of 9 and a platelet count of 252. She is arousable and she is following commands and moving all 4 extremities without any limitation. She is currently afebrile. 02/27/2024, patient is being seen for a follow-up. Noted the patient is postop day #1 following a coronary artery bypass surgery. The patient underwent an off-pump four-vessel bypass surgery. She required intra-aortic balloon pump support postoperatively. The patient is currently doing well. She is extubated on 2 L of oxygen by nasal cannula. Intra-aortic balloon pump was removed today. Needham-Jamal catheter still in place. PA pressures of 37/60. CVP is at 13. Cardiac output is at 5.1 with an index of 2.7. The left lower chest tube has drained 460 cc over the past 24 hours, right lower chest tube and drain 240 cc in the mediastinum has drained 200 cc. The patient is still on nitroglycerin drip at low-dose. Remains on insulin drip at 1.5 units an hour. Remains on a amiodarone maintenance of 0.5 mg/min and the patient is on a normal sinus rhythm. Dopamine is running at 2 mcg/kg/min. No specific complaints. Resting comfortably in bed. Chest x-ray shows no evidence of any pneumothorax. Lungs are well-expanded and the tubes are in place. WBC count of 8.1 with a hemoglobin 9.4 and a platelet count of 328. Sodium is at 134, BUN is 57 with a creatinine of 2.6 and a serum bicarb is at 21. Blood sugars are under adequate control at this point in time while being on insulin drip. Awake and alert and communicating. On 02/28/2024, I am seeing the patient for a follow-up. The patient is postop day #2. Awake and alert and sitting up in the chair. Mediastinal chest tube has been removed. Right lower chest tube and drains are out 4 the intra-aortic balloon pump has been removed. Exit site is clean. The patient remains on dopamine 70 cc over the past 24 hours and a left pleural chest tube with drain 870 cc over the past 24 hours. The patient is currently on 2 L of O2 nasal cannula. At 2 mcg/kg/min. The patient has been switched to oral amiodarone 4 mg p.o. twice a day and the patient is also on metoprolol 12.5 mg twice a day and the patient on aspirin and Plavix. Insulin drip is still running at 1 unit an hour. Using incentive spirometer, pulling approximately 500 cc. Blood work from today shows WBC count of 12.4 with a hemoglobin 10.2, BUN 62 with a creatinine of 3.07 and a sodium levels at 135 with a bicarb level is at 20. Chest x-ray shows essentially postsurgical changes. Mediastinal chest tube has been removed. The right and the pleural chest tubes are still in place. Cannot rule out very tiny apical pneumothoraces. There is some mild pulm vessel congestion. Otherwise, no other significant events overnight and the patient is alert and awake and communicating. 02/29/2024, the patient is being seen in cardiac follow-up. The patient is postop day #3 post four-vessel coronary bypass surgery. The surgical report has been removed. This morning, the patient is sitting up on a chair. Nevertheless, there has been some hemodynamic changes and the patient became hypotensive overnight. The patient was initially given 25% of albumin, 50 cc and subsequently the patient was given 5% albumin and total of 500 cc and currently she is receiving another dose of albumin 250 cc of 5% albumin. Dopamine was dropped to 1.5 mcg/kg/min which currently appears to have lower blood pressure and his systolic blood pressure currently is in the mid 80s. Cardiac output and index 3.0 and 1.6 respectively. Pulmonary artery pressures of 34/10. The mixed venous saturation is low at 40. The patient has a right pleural and left lower chest tube. Output from the right ear to 85 cc an hour. Present for 395 L over the past 24 hours. Chest x-ray shows increased pulm vascular markings. Atelectatic change in lung bases. Chest tubes are in good location. No evidence of any air leak in the Pleur-evac. The patient remains on oxygen and 3 L/min nasal cannula. The patient is also on normal citrate of 80 cc an hour. The blood work from today shows a BUN of 66 with a creatinine of 3.6 and the patient has developed interval worsening of renal function. Sodium level is at 131 with a potassium level of 5.1. LFTs are normal. The risk of 9.9 with a hemoglobin of 9.2 and a platelet count of 284. She is awake and alert and communicating. She is afebrile for now. As mentioned, she remains on 3 L of O2 nasal cannula. On 03/01/2024, the patient is being seen for a follow-up. She is sitting up on a chair. The patient was started on Primacor at 0.25 mcg/kg/min and the cardiac output today is at 4.2 with an index of 2.4. PA pressure 34/12. CVP is at 17. She remains on dopamine at 3 mcg/kg/min. She continues to have bilateral chest tube, the right fluid has drained 160 cc over the past 8 hours, 5 and 6 over the past 24 hours, left has drained around 260 cc over the past 8 hours and 650 over the past 24 hours. Chest x-ray still showing postsurgical changes. Chest tubes are in good location. Needham-Jamal catheter is in place. Questionable tiny apical pneumothoraces bilaterally. The mixed venous oxygen saturation is improved and is currently up to 57. Limited because of 8.8 with a hemoglobin of 8.7. BUN is 73 with a creatinine of 3.9 and a serum bicarb is at 16. Cardiac rhythm is sinus. Hemodynamically stable and improved while being on Primacor and do pamine. Awake and alert. No other significant events overnight. The patient is postop day #4 03/02/2024, patient is being seen for a follow-up. Patient is doing well on 2 L of oxygen nasal cannula. Remains on Primacor at 0.25 mcg/kg/min and remains on dopamine. Dopamine was running at 2.5 mcg and this was weaned down to 2 mcg and this resulted in drop in the cardiac output. Based on that, it was brought back up to 2.5 mcg and the most recent cardiac output is at 3.4 with an index of 1.8. PA pressures of 30/7 with a CVP of 12 and the cardiac rhythm is sinus. Left- sided chest tube and drains to 60 cc over the past 8700 over the past 24 hours, right-sided chest tube has drained to 20 cc over the past 8 hours and thousand and 20 cc over the past 24 hours. The patient is also on midodrine. The patient is on Levemir insulin 15 units twice daily. Awake and alert. No focal neurological deficit. Chest x-ray shows questionable apical pneumothorax which is very tiny. Chest tubes are in good location. There are some pulm vascular congestion. Blood work shows a BUN of 78 with a creatinine of 4.2 and there is a steady rise in the creatinine. Serum bicarb is at 18 with a sodium level of 130, potassium level is at 4.5, the risk is at 7.7 with a hemoglobin 8.6. Patient was started on hydralazine 20 mg p.o. every 6 hours. Remains on aspirin and Plavix. Patient is postop day #5. 03/03/2024, patient is postop day #6. The patient is off dopamine. The patient is on Primacor 0.25 mcg/kg/min. Urine output is adequate. Currently on 30s of oxygen by nasal cannula. She did have a short run of paroxysmal atrial fibrillation (4 around 5 minutes that she converted back into normal sinus rhythm. Cardiac output is 3.8 with an index of 2.1. PA pressure 25/13. Output from both chest has not been in the order of 800 cc over the past 24 hours. No other new complaints. No chest pain. No shortness of breath. BUN 78 and a creatinine of 4.4. Sodium is at 133, WBC count 6.8 with a hemoglobin of 8.1. Currently on a combination of amiodarone for A-fib prophylaxis at 40 mg p.o. twice a day. The patient also metoprolol 12.5 mg p.o. twice daily and hydralazine 20 mg 4 times a day. The patient is also on a combination of aspirin and Plavix. Serum bicarb level has improved. 03/04/2024, the patient is postop day #7. Awake and alert on room air oxygen. PA pressure 29/18. Cardiac output is at 4.3 with an index of 2.3 remains on Primacor 0.25 mcg/kg/min. Adequate urine output. Fluid balance is -253 cc over the past 24 hours. Chest x-ray shows reticulation of both lungs. Chest tubes are in place. Hemodynamically stable. Chest x-ray from today shows no signif icant airspace disease or abnormalities. The left pleural chest tube was produced 1.3 L in the right pleural chest tube was produced 710 cc over the past 24 hours. Labs from today shows a sodium level of 132, potassium of 4.4, BUN is 82 with a creatinine of 4.4. Bicarb is 21. Remains on aspirin and Plavix. Remains on amiodarone 20 mg p.o. twice a day and metoprolol 12.5 mg twice daily. Remains on hydralazine 20 mg every 6 hours. Remains on Levemir insulin 10 units twice a day. Remains on oral bicarb. No altered mentation. Tolerating diet. No other significant events overnight. Objective - Vital Signs Vital signs: Vital Signs Temp 97.0 F L 03/04/24 08:00 Pulse 67 03/04/24 08:00 Resp 14 03/04/24 08:00 BP 110/79 03/04/24 08:00 Pulse Ox 93 L 03/04/24 08:00 FiO2 40 02/26/24 16:39 Intake & Output 03/03/24 03/04/24 03/04/24 18:59 06:59 18:59 Intake Total 814.892 892 262 Output Total 929 695 113 Balance -114.108 197 149 Weight 86.9 kg Intake: IV 602 642 142 .9NS Cardiac Output 50 90 50 .9NS Pressure Bag 72 72 12 0.9 sodium chloride 480 480 80 Intake, IV Titration 92.892 100 Amount Milrinone-D5w Pmx 20 mg 92.892 100 In Dextrose/Water 1 100ml .bag @ 0.25 MCG/KG/MIN 5. 993 mls/hr IV .[id number] [facility] Rx#:[id number] Oral 120 150 120 Output: Chest Tube Drainage 800 520 93 Left Pleural Chest Tube 410 300 38 Right Pleural Chest Tube 390 220 55 Urine 129 175 20 Other: Voiding Method Indwelling Catheter Indwelling Catheter Indwelling Catheter # Bowel Movements 1 ABP, PAP, CO, CI - Last Documented Arterial Blood Pressure 139/47 Pulmonary Artery Pressure 35/20 Cardiac Output 4.2 Cardiac Index 2.3 - Exam GENERAL EXAM: Alert, 58-year-old white female, resting comfortably in bed, the patient is awake and oriented x 3 on room air oxygen HEAD: Normocephalic and atraumatic EYES: Normal reaction of pupils, equal size. NOSE: Clear with pink turbinates. THROAT: No erythema or exudates. NECK: No masses, no JVD. CHEST: No chest wall deformity. LUNGS: The patient has a right lower and left sided chest tube. Thoracotomy scar is dry clean and intact. Breath sounds equal and symmetrical bilaterally. CVS: S1 and S2 normal with no audible murmur, regular rhythm. No extra heart sounds ABDOMEN: No hepatosplenomegaly, active bowel sounds, no guarding or rigidity. SPINE: No scoliosis or deformity SKIN: No rashes CENTRAL NERVOUS SYSTEM: No focal deficits, tone is normal in all 4 extremities. EXTREMITIES: There is bilateral lower has equal and symmetrical pulses in the lower extremities bilaterally. The patient has amputation of the right great toe. Extremities are warm. - Labs CBC & Chem 7: 03/03/24 04:21 03/04/24 06:00 Labs: Abnormal Lab Results - Last 24 Hours (Table) 03/03/24 03/03/24 03/04/24 Range/Units 16:27 20:02 06:00 Sodium 132 L (137-145) mmol/L Carbon Dioxide 21 L (22-30) mmol/L BUN 82 H (7-17) mg/dL Creatinine 4.45 H (0.52-1.04) mg/dL Glucose 123 H (74-99) mg/dL POC Glucose (mg/dL) 215 H 235 H (70-110) mg/dL Calcium 8.1 L (8.4-10.2) mg/dL Alkaline Phosphatase 129 H (38-126) U/L Total Protein 4.9 L (6.3-8.2) g/dL Albumin 2.5 L (3.5-5.0) g/dL 03/04/24 Range/Units 06:49 Sodium (137-145) mmol/L Carbon Dioxide (22-30) mmol/L BUN (7-17) mg/dL Creatinine (0.52-1.04) mg/dL Glucose (74-99) mg/dL POC Glucose (mg/dL) 118 H (70-110) mg/dL Calcium (8.4-10.2) mg/dL Alkaline Phosphatase (38-126) U/L Total Protein (6.3-8.2) g/dL Albumin (3.5-5.0) g/dL Assessment and Plan Assessment: Multivessel coronary artery disease and the patient is status post acute non-ST elevation MO, the patient underwent four-vessel bypass surgery off-pump which included sequential RUSSO to To the LAD and diagonal and SVG to PDA and second o btuse marginal branch and the patient is currently postop day day # 7. Hemodynamic parameters were noted. The patient continues to be on Primacor 0.25 mcg/kg/min. Monitor urine output. Monitor renal function. Monitor output from the chest tubes in the chest about was still active. As such, the chest will be kept in place. Acute hypoxic respiratory failure currently on room air oxygen Postthoracotomy, currently intubated on the mechanical ventilator. Mediastinal chest tube has been removed. The patient has a right pleural and left lower chest tubes in place. Output from the chest has not been noted. No respiratory distress for now. Output from the chest tube is still considerably high normal keep the chest in the place for another 24 hours Ischemic cardiomyopathy with an estimated left ventricular ejection fraction severely impaired at 20 to 25% as well as moderate to severe mitral valve regurgitation Normocytic normochromic anemia, stable hemoglobin Chronic kidney disease stage III with a component of acute kidney injury. patient also has a component of anion gap metabolic acidosis. . Non-anion gap metabolic acidosis improved. Creatinine is on the rise creatinine has been stable since yesterday at 4.2 Chronic obstructive pulmonary disease, stable Diabetes mellitus type 1, had HbA1c at the time of admission was 7.1 History of hyperlipidemia History of hypertension History of CVA/TIA History of hypothyroidism History of fibromyalgia History of GERD Mildly elevated LFTs, hepatitis panel nonreactive Former tobacco smoker as of 55 days ago, before this 1/2 pack/day or approximately 15-year pack history' Previous history of methamphetamine use Plan: Keep the patient on room air oxygen encourage use of incentive spirometer. Right and left pleural chest tube In place, continue monitoring the output Continue Primacor which is running at 0.25 mcg/kg/min. Patient is off dopamine Serum bicarb level is improved Patient was given IV calcium Patient was also given 100 cc of 25% albumin Continue metoprolol 12.5 mg twice daily Continue hydralazine 20 mg 4 times daily Continue aspirin and Plavix Continue oral amiodarone Monitor electrolytes Chest x-ray was noted Needham-Jamal catheter to be kept in place Chrystalir insulin 10 units twice daily and sliding scale insulin coverage. Pain management Monitor renal function Will continue to follow and make further recommendations based on her progress. This is coordinated with the cardiothoracic team.
--- NOTE | 2024-03-04 13:44 | P.PN ---
Subjective CAD status post CABG The patient is a 58-year-old female patient with a past medical history significant for coronary artery disease status post CABG x 4 as well as hypertension and dyslipidemia and chronic kidney disease and ischemic cardiomyopathy. This is postoperation day #4 February 29, 2024 The patient was seen this morning. Her pressure remains marginal and currently she is on dopamine for renal perfusion. Her kidney function is worse. She has been maintaining normal sinus mechanism. The chest x-ray looks better than yesterday yesterday it was wet and the Lasix was given with improvement in that. She is on dual antiplatelet therapy along with a statin along with beta-alex and she is on hydralazine because the SVR is elevated. I would suggest DC dopamine and start the patient on dobutamine or Primacor to increase contractil ity and decrease afterload. The examination is remarkable for regular rhythm with a distant heart sounds and diminished breathing sounds bilaterally 03/02 patient seen and examined. Patient remains on milrinone at 0.25, dopamine drip at 2. Denies any chest pain or pressure. Marginal urine output with 5-15 mL per hour. She did receive albumin as well as Lasix. She denies any significant cough, fevers or chills. Cardiac index decreased down to 1.8 with weaning of milrinone previously however currently 2.3. hydralazine was held overnight secondary to systolics in the 80s with a map of 63. 5/26 patient seen and examined. Denies any chest pain or pressure. Does have somewhat more of an appetite. Attempted to wean dopamine however cardiac index came down to 1.8. Remains on milrinone at 0.25. Urine output 20s cc per hour. Patient was placed on Midrin and maps in the 75-80 range up to 89. 5/27 Seen and examined. Midodrine was discontinued yesterday, BP in the 100-120's systolics. She went into short run of Afib and Dopamine was discontinued. Still making only 20cc/hr of urine. Cr stable at 4.4. CVP running 12-15 range. Still volume overloaded. Not much change in urination despite Lasix 40mg IV. Did have some atypical left sided chest pain since yesterday, worse with breathing most likely related to chest tube. Assessment CAD status post CABG Ischemic cardiomyopathy Chronic kidney disease cardiogenic shock on vasopressors, inotropes Multiple comorbid conditions Plan Continue dual antiplatelet therapy Continue statin continue inotropes and wean as able. Hopefully requirements for vasopressors, inotropes will improve with time Monitor kidney function, urine output. Monitor anemia Increase hydralazine up to 30mg QID and add Isordil 30mg QID for better a fterload reduction, although hold a map less than 65. Attempt to increase diuretics with Bumex 2mg IV bid as clearly still volume overloaded on exam with elevated filling pressures. If not making significant urine and remains volume overloaded, she may require dialysis. Objective - Vital Signs Vital signs: Vital Signs Temp 97.9 F 03/04/24 12:00 Pulse 62 03/04/24 13:00 Resp 17 03/04/24 13:00 BP 111/58 03/04/24 13:00 Pulse Ox 95 03/04/24 13:00 FiO2 40 02/26/24 16:39 Intake & Output 03/03/24 03/04/24 03/04/24 18:59 06:59 18:59 Intake Total 814.892 892 492 Output Total 929 695 591 Balance -114.108 197 -99 Weight 86.9 kg Intake: IV 602 642 372 .9NS Cardiac Output 50 90 50 .9NS Pressure Bag 72 72 42 0.9 sodium chloride 480 480 280 Intake, IV Titration 92.892 100 Amount Milrinone-D5w Pmx 20 mg 92.892 100 In Dextrose/Water 1 100ml .bag @ 0.25 MCG/KG/MIN 5. 993 mls/hr IV .[id number] [facility] Rx#:[id number] Oral 120 150 120 Output: Chest Tube Drainage 800 520 518 Left Pleural Chest Tube 410 300 248 Right Pleural Chest Tube 390 220 270 Urine 129 175 73 Other: Voiding Method Indwelling Catheter Indwelling Catheter Indwelling Catheter # Bowel Movements 1 ABP, PAP, CO, CI - Last Documented Arterial Blood Pressure 139/47 Pulmonary Artery Pressure 31/18 Cardiac Output 4.3 Cardiac Index 2.3 - Labs CBC & Chem 7: 03/04/24 06:00 03/04/24 06:00 Labs: Abnormal Lab Results - Last 24 Hours (Table) 03/03/24 03/03/24 03/04/24 Range/Units 16:27 20:02 06:00 RBC (3.80-5.40) m/uL Hgb (11.4-16.0) gm/dL Hct (34.0-46.0) % MCHC (31.0-37.0) g/dL Sodium 132 L (137-145) mmol/L Carbon Dioxide 21 L (22-30) mmol/L BUN 82 H (7-17) mg/dL Creatinine 4.45 H (0.52-1.04) mg/dL Glucose 123 H (74-99) mg/dL POC Glucose (mg/dL) 215 H 235 H (70-110) mg/dL Calcium 8.1 L (8.4-10.2) mg/dL Alkaline Phosphatase 129 H (38-126) U/L Total Protein 4.9 L (6.3-8.2) g/dL Albumin 2.5 L (3.5-5.0) g/dL 03/04/24 03/04/24 03/04/24 Range/Units 06:00 06:49 11:37 RBC 2.96 L (3.80-5.40) m/uL Hgb 8.8 L (11.4-16.0) gm/dL Hct 29.3 L (34.0-46.0) % MCHC 30.0 L (31.0-37.0) g/dL Sodium (137-145) mmol/L Carbon Dioxide (22-30) mmol/L BUN (7-17) mg/dL Creatinine (0.52-1.04) mg/dL Glucose (74-99) mg/dL POC Glucose (mg/dL) 118 H 218 H (70-110) mg/dL Calcium (8.4-10.2) mg/dL Alkaline Phosphatase (38-126) U/L Total Protein (6.3-8.2) g/dL Albumin (3.5-5.0) g/dL
[2024-03-04 14:20] LABS: Basophils % (A) 1 %; Eosinophils # (A) 0.4 k/uL (0-0.7); Eosinophils % (A) 6 %; HCT 28.6 % (34.0-46.0); HGB 8.7 gm/dL (11.4-16.0); Hypochromasia Marked; Lymphocytes # (A) 0.8 k/uL (1.0-4.8); Lymphocytes % (A) 13 %; MCH 29.9 pg (25.0-35.0); MCHC 30.4 g/dL (31.0-37.0); MCV 98.2 fL (80.0-100.0); Macrocytosis Slight; Mean Platelet Volume 8.1; Monocytes # (A) 0.3 k/uL (0-1.0); Monocytes % (A) 5 %; Neutrophils # (A) 4.4 k/uL (1.3-7.7); Neutrophils % (A) 74 %; Platelet Count 359 k/uL (150-450); RBC 2.91 m/uL (3.80-5.40); RDW 14.8 % (11.5-15.5); WBC 5.9 k/uL (3.8-10.6)
[2024-03-04] MEDS: BUMETANIDE 0.25 MG/ML 10 ML VIAL IV SCH (14:20)
[2024-03-04] MEDS: hydrALAZINE HCL 10 MG TAB PO SCH (14:21)
[2024-03-04 16:39] LABS: Glucose,Whole Blood 241 mg/dL (70-110)
--- NOTE | 2024-03-04 17:10 | P.PN ---
Subjective Progress Note Date: 03/04/24 This is a pleasant 58 years old female with past medical history of multiple medical problems as below She has been incarcerated for 52 days, there is officer at bedside. Patient presents because of shortness of breath and exertional dyspnea has for the last 2 days, she states she hears herself wheezing when she lies down. Currently she is breathing quietly. She is complaining for mild chest pain on the left side, nonradiating nonspecific, feels much better now and very mild. She has occasional cough but no phlegm. Also she is complaining from upset stomach but no diarrhea or vomiting She complains from decreased urination but no dysuria or urgency. She has mild headache feels generally weak but no dizziness or blurry vision. She used to smoke half pack per day before she got incarcerated No alcohol or illicit drugs. She follow-up with her registered nurse teacher Dr. Donal Herrera and knife setter grinder machine Dr. Babb who examined her about 2 months ago where she has some mild ulcer In the bottom of her right total This morning patient has low-grade fever 100.2 She is also mildly tachypneic around 22 She is saturating 93% on 2 L oxygen via nasal cannula Labs reviewed showing hemoglobin of 7.7, rest of CBC is unremarkable BMP liver enzymes not elevated. INR 0.9. Lactic 0.9 proBNP is elevated 25 100 EKG showing sinus rhythm at [address]-T changes, no left bundle branch block 02/17/2024 --Patient is seen and evaluated in room at bedside; remains on Lasix drip, remains in negative fluid balance - patient underwent cardiac catheterization which revealed severe triple-vessel coronary artery disease and now she is being evaluated for possible myocardial revascularization. Patient remains on oxygen at 2 L/min and her O2 sats is 97%, her PFT showed severe obstructive lung disease, however not severe enough to not consider myocardial revascularization if the patient is cleared by other consultants including nephrology and cardiology. Patient has been a smoker over the years, she had at least a 48-[id number]-nbcv smoking history. Remind you patient had a PFT with chest x-ray still showing evidence of pulmonary edema which will definitely compromise her PFT will likely reflect more restriction than obstructive lung disease. WBC count today is 4.9 hemoglobin 7.7 electrolytes are normal BUN is 85 creatinine 3.59 02/18/2024 Patient is seen and evaluated in room at bedside; sitting up in bed; ports stabl e breathing - patient underwent AFRICA which revealed aortic valve tricuspid and functioning normally. Mitral valve structurally normal with mild central secondary mitral regurgitation. Pulmonary vein flow has systolic dominance. Tricuspid valve appears to be normal with mild tricuspid regurgitation. Intra-atrial septum is intact with no evidence of PFO. Left atrial appendage free of clot. LV EF 35% with global hypokinesis. -- Patient is followed by cardiothoracic surgery and also nephrology. Nephrology not recommending any indication or need for hemodialysis. Patient remains on Lasix drip per nephrology. Patient has a negative fluid balance of 1322. Repeat blood work reveals hemoglobin is 7.9. BUN 82 creatinine 3.39. Mild elevation in liver function test. -Plan for surgery once clinically optimized 02/19/2024 Patient looks more awake than admission, sitting up in bed. Custodial officers at bedside Mentation at baseline. She talks freely. Denies chest pain or dyspnea at rest On presentation patient was found acute CHF and non-STEMI, workup showing triple-vessel coronary artery disease and patient will require bypass procedure with cardiothoracic surgery team on the case once medically optimized. Patient currently with fluid overload on Lasix drip, on admission it was 5 mg/h, currently increased to 10 mg/h. She is making around 1 L of urine output by yesterday. Saldaña catheter in place. She is also on aspirin 81 mg Hemoglobin 8.5, creatinine 3.3 compared to 2.7 on admission with baseline 0.9- 1.2. Liver enzymes mildly elevated since admission. 02/20/2024 Patient came from care home for an NSTEMI. Workup showing severe triple-vessel coronary artery disease currently being evaluated by cardiothoracic surgery team for possible cardiac bypass procedure. However she needs optimization and she is currently kept on IV Lasix 10 mg, creatinine went up 3.3 today. Environmental Compliance Inspector recommended to continue with Lasix drip still tomorrow Patient diabetic, she is on Levemir 8 units twice daily, she is developing episodes of hypoglycemia we will going to lower the dose to 6 units twice daily She is also on aspirin 325 mg 02/21/2024 Patient continues to improve today, she is more energetic, less dyspneic Lasix drip switched to IV Lasix 60 mg twice daily Cardiothoracic surgery team with plan for valve replacement surgery on this coming Sunday 02/25 Sugars better controlled with no hyperglycemia on Levemir 6 units twice daily 02/22/2024 Patient breathing is stable, denies chest pain No new complaint Will go check breathing tomorrow Plan for cardiac surgery on Monday02/23/2024 Patient awake alert She feels more weak today Creatinine is up Plan for cardiac surgery early next week 02/24/2024 Patient feels weak No chest pain or dyspnea Patient anticipates surgery on Monday homicide squad commanding officer at bedside 02/25/2024 Patient awake alert looks comfortable Generally weak Creatinine stable around 3.2 Plan for bypass cardiac surgery tomorrow, patient is agreeable to the current plan 02/26/2024 Patient is seen in follow-up today for [facility] Patient currently n.p.o. and preop. Will await surgical report. 02/27/2024 Patient is seen in follow-up this morning currently in the ICU with multiple medical consultations following. Patient is status post bypass yesterday currently maintained on 4 L via nasal cannula. Patient is reporting some shortness of breath although biggest concern is severe nausea. Patient is maintained on Reglan and Zofran as needed. Will make Reglan scheduled. Patient did have mediastinal chest tube removed and was taken off balloon pump most recently this morning. Patient continues on insulin drip and will continue monitoring sugars closely continue with current regimen and will transition off insulin drip once patient nausea is improved and tolerating diet. Patient is afebrile at this time. 02/28/2024 Patient is seen in follow-up today currently sitting up in the chair tolerating ice chips. Patient reports continues with intermittent nausea although significantly improved. Patient remains on 2 L and has been working on incentive spirometer. Encouraged at least 10 times every hour while awake. Patient was on insulin drip with history of diabetes and being transition to sliding scale. Patient was given a dose of long-acting and will make twice daily and recommend monitoring Accu-Cheks before meals and at bedtime and 2 AM for tight glycemic control. Kidney functions are stable with nephrology following. 02/29/2024 Patient is seen in follow-up continues in the ICU with multiple medical consultations following. Patient is currently hypotensive medications being adjusted and patient is receiving albumin. Patient reports to feeling exhausted and not sleeping very well. Patient's blood sugars being adjusted and using sliding scale. Continue with Levemir twice daily and will adjust accordingly. Blood sugars have been on the lower side and not requiring long-acting. Patient not eating much and continues with some nausea. 03/01/2024 Patient is seen in follow-up in the ICU currently sitting up in the chair. Patient remains on dopamine and also has been started on milrinone. Patient continues with some nausea although able to tolerate a little more intake and blood sugars have been elevated during the day will increase long-acting and continue with sliding scale and Accu-Cheks before meals and at bedtime. Patient continues with chest tubes as well as swans catheter at this time. Patient has been encouraged to continue using incentive spirometer at least 10 times every hour while awake. Recommend PT/OT therapy daily as patient is significantly weak and has had prolonged hospitalization. 03/04/2024 Patient is seen this morning and continues to be in the ICU with multiple medical consultations following. Patient continues with indwelling Saldaña catheter monitoring output closely as kidney functions remain elevated. Nephrology is following and discussing possible need for renal replacement therapy. Cardiology following and Imdur is being added. Patient continues with chest tubes and continued volume overload noted on imaging. Patient continues on oxygen via nasal and appears pale, will order CBC. Transfuse if 7 or less. Review of systems: Constitutional: No reports of fatigue today, no fever, or chills Cardiovascular: reports of chest wall pain Respiratory: reports of shortness of breath with exertion, occasional cough GI: reports of intermittent nausea and improving, no vomiting, or diarrhea : No reports of dysuria or retention Neurovascular: reports of generalized weakness All medications have been reviewed Active Medications Acetaminophen (Acetaminophen Tab 325 Mg Tab) 650 mg PO Q4HR PRN PRN Reason: Fever and/ or Pain Hydrocodone Bitart/Acetaminophen (Hydrocodone/Apap 5-325mg 1 Each Tab) 1 each PO Q4HR PRN PRN Reason: Breakthrough Pain Last Admin: 03/04/24 14:53 Dose: 1 each Albuterol/Ipratropium (Ipratropium-Albuterol 3 Ml Neb) 3 ml INHALATION RT-Q2H PRN PRN Reason: Shortness Of Breath Or Wheezing Albuterol/Ipratropium (Ipratropium-Albuterol 3 Ml Neb) 3 ml INHALATION RT-QID [facility] Last Admin: 03/04/24 15:27 Dose: Not Given Amiodarone HCl (Amiodarone 200 Mg Tab) 400 mg PO BID [facility] Stop: 03/04/24 23:00 Last Admin: 03/04/24 08:22 Dose: 400 mg Amiodarone HCl (Amiodarone 200 Mg Tab) 200 mg PO BID [facility] Aspirin (Aspirin 325 Mg Tab) 325 mg PO DAILY [facility] Last Admin: 03/04/24 08:21 Dose: 325 mg Atorvastatin Calcium (Atorvastatin 40 Mg Tab) 40 mg PO DAILY [facility] Last Admin: 03/04/24 08:22 Dose: 40 mg Bisacodyl (Bisacodyl 10 Mg Supp) 10 mg RECTAL DAILY PRN PRN Reason: Constipation Budesonide/Formoterol Fumarate (Symbicort 160-4.5 Mcg Inhaler) 2 puff IN HALATION RT-BID [facility] Last Admin: 03/04/24 07:46 Dose: Not Given Bumetanide (Bumetanide 0.25 Mg/Ml 10 Ml Vial) 2 mg IV Q12H [facility] Last Admin: 03/04/24 14:20 Dose: 2 mg Clopidogrel Bisulfate (Clopidogrel 75 Mg Tab) 75 mg PO DAILY [facility] Last Admin: 03/04/24 08:21 Dose: 75 mg Dextrose/Water (Dextrose 50% Syringe 50 Ml) 25 ml IVP PER PROTOCOL PRN; Protocol PRN Reason: Hypoglycemia Dextrose/Water (Dextrose 50% Syringe 50 Ml) 50 ml IVP PER PROTOCOL PRN; Protocol PRN Reason: Hypoglycemia Heparin Sodium (Porcine) (Heparin Sodium,Porcine 5,000 Unit/Ml 1 Ml Vial) 5,000 unit SQ Q8HR [facility] Last Admin: 03/04/24 16:52 Dose: 5,000 unit Hydralazine HCl (Hydralazine Hcl 10 Mg Tab) 30 mg PO Q6H [facility] Last Admin: 03/04/24 15:02 Dose: 30 mg Amiodarone HCl 150 mg/ (Dextrose/Water) 103 mls @ 618 mls/hr IV .Q10M PRN PRN Reason: A.FIB/FLUTTER Milrinone Lactate/Dextrose 20 (mg/ IV Solution) 100 mls @ 5.993 mls/hr IV .[id number] [facility] Last Admin: 03/04/24 02:02 Dose: 0.25 mcg/kg/min, 5.993 mls/hr Insulin Aspart (Insulin Aspart (Novolog) 100 Unit/Ml Vial) 0 unit SQ ACHS [facility]; Protocol Last Admin: 03/04/24 16:53 Dose: 4 unit Insulin Detemir (Insulin Detemir (Levemir) 100 Unit/Ml Syr) 10 unit SQ BID@0700,2100 [facility] Last Admin: 03/04/24 06:51 Dose: Not Given Isosorbide Dinitrate (Isosorbide Dinitrate 10 Mg Tab) 30 mg PO QID [facility] Levothyroxine Sodium (Levothyroxine 88 Mcg Tab) 176 mcg PO DAILY@0630 [facility] Last Admin: 03/04/24 06:21 Dose: 176 mcg Metoprolol Tartrate (Metoprolol Tartrate 12.5 Mg Tab) 12.5 mg PO BID [facility] Last Admin: 03/04/24 08:21 Dose: 12.5 mg Miscellaneous Information (Magnesium Replacement Protocol 1 Each Misc) 1 each MISCELLANE DAILY PRN; Protocol PRN Reason: Per Protocol Miscellaneous Information (Potassium Replacement Protocol 1 Each Misc) 1 each MISCELLANE DAILY PRN; Protocol PRN Reason: Per Protocol Miscellaneous Information (Phosphorus Replacement Protoco 1 Each Misc) 1 each MISCELLANE DAILY PRN; Protocol PRN Reason: Per Protocol Ondansetron HCl (Ondansetron 4 Mg/2 Ml Vial) 4 mg IVP Q6HR PRN PRN Reason: Nausea And Vomiting Last Admin: 03/03/24 17:40 Dose: 4 mg Pantoprazole Sodium (Pantoprazole 40 Mg Tablet) 40 mg PO AC-BRKFST [facility] Last Admin: 03/04/24 06:21 Dose: 40 mg Senna/Docusate Sodium (Sennosides-Docusate Sodium 1 Each Tab) 2 each PO HS [facility] Last Admin: 03/03/24 19:50 Dose: 2 each Sodium Bicarbonate (Sodium Bicarbonate Tab 650 Mg Tab) 650 mg PO BID [facility] Last Admin: 03/04/24 08:23 Dose: 650 mg Sodium Chloride (Sodium Chloride 0.9% Flush 10 Ml Syringe) 10 ml IV BID [facility] Last Admin: 03/04/24 07:42 Dose: 10 ml Physical exam: GENERAL: The patient is alert and oriented x3, pale, currently sitting up in the chair well developed, thin built. Generally weak, elderly appearing HEENT: Pupils are round and equally reacting to light. EOMI. No scleral icterus. No conjunctival pallor. Normocephalic, atraumatic. No pharyngeal erythema. No thyromegaly. CARDIOVASCULAR: S1 and S2 muffled, heart hugger noted PULMONARY: Diminished breath sounds bilaterally, faint crackles. Tachypnea ABDOMEN: Soft, nontender, nondistended, normoactive bowel sounds. No palpable organomegaly. Saldaña catheter in place MUSCULOSKELETAL: No joint swelling or deformity. EXTREMITIES: No cyanosis, clubbing, 1+ bilateral pitting leg edema. NEUROLOGICAL: Gross neurological examination did not reveal any focal deficits. Diffusely weak SKIN: No rashes. no petechiae. Pale Assessment: Acute systolic CHF exacerbation, ejection fraction: 20 to 25% non-STEMI, ekg New left bundle branch block, secondary to triple-vessel coronary artery disease status post CABG Mild hypoxic respiratory failure, improving Acute kidney injury on chronic kidney disease, nonoliguric Acute on chronic anemia of chronic disease Acute urinary tract infection, urine culture showing skin or genital kwesi. Resolved Diabetes mellitus, type II, uncontrolled with hyper and hypoglycemia Continued ongoing nicotine dependence Chronic ulcers of the right big toe Chronic kidney disease stage II with acute kidney injury GI prophylaxis DVT prophylaxis Full code Plan: Cardiothoracic surgery team following as attending and patient is status post bypass procedure and off balloon pump . Mediastinal chest tube removed, daily chest x-ray ordered and showing bilateral pneumothoraces, vascular congestion patient is being transition to IV Bumex Continue Accu-Cheks before meals and at bedtime and continue to encourage oral intake, adjust insulins accordingly as patient's blood sugars have been on the lower side. Not much of an oral intake. Continue with anti-nausea medications as needed and small frequent meals, continue with supplements between meals Nephrology following and kidney functions continue to be elevated and being closely monitored. Patient continues with indwelling Saldaña catheter for strict intake and output monitoring. Discussing possible need for renal replacement Patient is continued on milrinone, medications being adjusted with cardiothoracic surgery along with with cardiology Incentive spirometer at the bedside encouraged the patient to use at least 10 times every hour while awake Labs pending, recommend CBC and transfuse if 7 or less. Patient appears pale We will continue to follow with cardiothoracic surgery during hospitalization. Due to multiple complex medical issues, overall prognosis is guarded The impression and plan of care has been dictated by Mandy Granda, Nurse Practitioner as directed. Dr. Andrzej MD I have performed a history and examination and MDM of this patient, discussed the same with the dictator, and agree with the dictator's assessment and plan as written ,documented as a scribe. Based on total visit time, I have performed more than 50% of the visit. Objective - Vital Signs Vital signs: Vital Signs Temp 97.3 F L 03/04/24 16:00 Pulse 63 03/04/24 16:00 Resp 15 03/04/24 16:00 BP 104/63 03/04/24 16:00 Pulse Ox 95 03/04/24 16:00 FiO2 40 02/26/24 16:39 Intake & Output 03/03/24 03/04/24 03/04/24 18:59 06:59 18:59 Intake Total 814.892 892 584 Output Total 929 695 726 Balance -114.108 197 -142 Weight 86.9 kg Intake: IV 602 642 464 .9NS Cardiac Output 50 90 50 .9NS Pressure Bag 72 72 54 0.9 sodium chloride 480 480 360 Intake, IV Titration 92.892 100 Amount Milrinone-D5w Pmx 20 mg 92.892 100 In Dextrose/Water 1 100ml .bag @ 0.25 MCG/KG/MIN 5. 993 mls/hr IV .[id number] [facility] Rx#:[id number] Oral 120 150 120 Output: Chest Tube Drainage 800 520 628 Left Pleural Chest Tube 410 300 298 Right Pleural Chest Tube 390 220 330 Urine 129 175 98 Other: Voiding Method Indwelling Catheter Indwelling Catheter Indwelling Catheter # Bowel Movements 1 ABP, PAP, CO, CI - Last Documented Arterial Blood Pressure 139/47 Pulmonary Artery Pressure 28/16 Cardiac Output 4.4 Cardiac Index 2.4 - Labs CBC & Chem 7: 03/04/24 13:59 03/04/24 06:00 Labs: Abnormal Lab Results - Last 24 Hours (Table) 03/03/24 03/04/24 03/04/24 Range/Units 20:02 06:00 06:00 RBC 2.96 L (3.80-5.40) m/uL Hgb 8.8 L (11.4-16.0) gm/dL Hct 29.3 L (34.0-46.0) % MCHC 30.0 L (31.0-37.0) g/dL Lymphocytes # (1.0-4.8) k/uL Sodium 132 L (137-145) mmol/L Carbon Dioxide 21 L (22-30) mmol/L BUN 82 H (7-17) mg/dL Creatinine 4.45 H (0.52-1.04) mg/dL Glucose 123 H (74-99) mg/dL POC Glucose (mg/dL) 235 H (70-110) mg/dL Calcium 8.1 L (8.4-10.2) mg/dL Alkaline Phosphatase 129 H (38-126) U/L Total Protein 4.9 L (6.3-8.2) g/dL Albumin 2.5 L (3.5-5.0) g/dL 03/04/24 03/04/24 03/04/24 Range/Units 06:49 11:37 13:59 RBC 2.91 L (3.80-5.40) m/uL Hgb 8.7 L (11.4-16.0) gm/dL Hct 28.6 L (34.0-46.0) % MCHC 30.4 L (31.0-37.0) g/dL Lymphocytes # 0.8 L (1.0-4.8) k/uL Sodium (137-145) mmol/L Carbon Dioxide (22-30) mmol/L BUN (7-17) mg/dL Creatinine (0.52-1.04) mg/dL Glucose (74-99) mg/dL POC Glucose (mg/dL) 118 H 218 H (70-110) mg/dL Calcium (8.4-10.2) mg/dL Alkaline Phosphatase (38-126) U/L Total Protein (6.3-8.2) g/dL Albumin (3.5-5.0) g/dL 03/04/24 Range/Units 16:38 RBC (3.80-5.40) m/uL Hgb (11.4-16.0) gm/dL Hct (34.0-46.0) % MCHC (31.0-37.0) g/dL Lymphocytes # (1.0-4.8) k/uL Sodium (137-145) mmol/L Carbon Dioxide (22-30) mmol/L BUN (7-17) mg/dL Creatinine (0.52-1.04) mg/dL Glucose (74-99) mg/dL POC Glucose (mg/dL) 241 H (70-110) mg/dL Calcium (8.4-10.2) mg/dL Alkaline Phosphatase (38-126) U/L Total Protein (6.3-8.2) g/dL Albumin (3.5-5.0) g/dL
[2024-03-04] MEDS: ISOSORBIDE DINITRATE 10 MG TAB PO SCH (19:01)
[2024-03-04 19:56] LABS: Glucose,Whole Blood 291 mg/dL (70-110)
[2024-03-04] MEDS: traZODone HCL 50 MG TAB PO SCH (20:52)
[2024-03-05 06:14] LABS: Glucose,Whole Blood 65 mg/dL (70-110)
[2024-03-05 06:22] LABS: HCT 27.7 % (34.0-46.0); HGB 8.5 gm/dL (11.4-16.0); Hypochromasia Moderate; MCH 29.4 pg (25.0-35.0); MCHC 30.6 g/dL (31.0-37.0); MCV 96.2 fL (80.0-100.0); Mean Platelet Volume 8.3; Platelet Count 339 k/uL (150-450); RBC 2.88 m/uL (3.80-5.40); RDW 15.1 % (11.5-15.5); WBC 5.8 k/uL (3.8-10.6)
[2024-03-05 06:38] LABS: Glucose,Whole Blood 68 mg/dL (70-110)
[2024-03-05 06:38] LABS: African American GFR (CKD) 11 (>60 ml/min/1.73 sqM); Anion Gap 7 mmol/L; Blood Urea Nitrogen 78 mg/dL (7-17); Calcium 8.2 mg/dL (8.4-10.2); Carbon Dioxide 21 mmol/L (22-30); Chloride 103 mmol/L (98-107); Glucose 58 mg/dL (74-99); Magnesium 1.9 mg/dL (1.6-2.3); Non-African American GFR(CKD) 10 (>60 ml/min/1.73 sqM); Potassium 4.2 mmol/L (3.5-5.1); Sodium 131 mmol/L (137-145)
[2024-03-05] MEDS: MAGNESIUM SULFATE-D5W PMX 1 GM in DEXTROSE/WATER 1 100ML.BAG IVPB ONE (06:56)
[2024-03-05 07:03] LABS: Glucose,Whole Blood 117 mg/dL (70-110)
--- NOTE | 2024-03-05 07:47 | XR ---
EXAMINATION TYPE: XR chest 1V portable DATE OF EXAM: 03/05/2024 COMPARISON: 03/04/2024 HISTORY: Postop CABG TECHNIQUE: Single frontal view of the chest is obtained. FINDINGS: Small approximate 5% biapical pneumothoraces stable. Bilateral chest tubes. Diffuse inters titial pattern with tiny pleural effusion and basilar infiltrate. Post median sternotomy. [place] c atheter stable. Osseous structures unchanged. IMPRESSION: 1. Stable 5% biapical pneumothoraces. 2. Correlate for mild CHF.
[2024-03-05] MEDS: AMIODARONE 200 MG TAB PO SCH (08:55)
--- NOTE | 2024-03-05 09:02 | P.PN ---
Subjective Progress Note Date: 03/05/24 The patient is a 58-year-old female with past medical history of multivessel coronary artery disease and ischemic cardiomyopathy, who is currently admitted after undergoing CABG x 4. Hospital course has been complicated by acute kidney injury. Patient is on inotropes and is being followed by nephrology. Consideration for hemodialysis. Patient was interviewed and examined sitting up in the recliner chair. She states she is generally feeling well today. No current chest discomfort. GENERAL: Ill-appearing, well-nourished and in no acute distress. NECK: Supple without JVD or thyromegaly. LUNGS: Breath sounds diminished to auscultation bilaterally. Respiration equal and unlabored. No wheezes, rales or rhonchi. HEART: Regular rate and rhythm without murmurs, rubs or gallops. S1 and S2 heard. EXTREMITIES: Normal range of motion, mild bilateral lower extremity edema. No clubbing or cyanosis. Peripheral pulses intact and strong. TELEMETRY: Sinus rhythm overnight LABS: WBC 5.8, hemoglobin 8.5, hematocrit 27.7, platelet 339, sodium 131, potassium 4.2, BUN 70, creatinine 4.68, magnesium 1.9 IMPRESSION: Triple-vessel coronary artery disease Status post CABG x 4 Ischemic cardiomyopathy, EF 35% Mitral regurgitation Postoperative atrial fibrillation, remains in sinus Acute on chronic kidney disease, secondary to cardiorenal syndrome Hypertension Diabetes COPD PLAN: Continue supportive treatment including aggressive pulmonary hygiene Awaiting recommendations from nephrology regarding dialysis Repeat limited echocardiogram Further recommendations to be based upon clinical course I am dictating on behalf of Dr Jt Saunders's history/physical and assessment/plan. Objective - Vital Signs Vital signs: Vital Signs Temp 97.5 F L 03/05/24 04:00 Pulse 64 03/05/24 08:00 Resp 13 03/05/24 08:00 BP 101/59 03/05/24 08:00 Pulse Ox 95 03/05/24 08:00 FiO2 40 02/26/24 16:39 Intake & Output 03/04/24 03/05/24 03/05/24 18:59 06:59 18:59 Intake Total 1312 872 46 Output Total 981 945 35 Balance 331 -73 11 Weight 89.2 kg Intake: IV 652 652 46 .9NS Cardiac Output 50 100 .9NS Pressure Bag 72 72 6 0.9 sodium chloride 480 480 40 Albumin Human 25% 50 ml 50 In Empty Bag 1 bag @ 50 mls/hr IVPB Q1H [facility] Rx#: [id number] Intake, IV Titration 100 Amount Milrinone-D5w Pmx 20 mg 100 In Dextrose/Water 1 100ml .bag @ 0.25 MCG/KG/MIN 5. 993 mls/hr IV .[id number] [facility] Rx#:[id number] Oral 560 220 Output: Chest Tube Drainage 848 645 20 Left Pleural Chest Tube 398 375 20 Right Pleural Chest Tube 450 270 Urine 133 300 15 Other: Voiding Method Indwelling Catheter Indwelling Catheter ABP, PAP, CO, CI - Last Documented Arterial Blood Pressure 139/47 Pulmonary Artery Pressure 31/12 Cardiac Output 4.1 Cardiac Index 2.2 - Labs CBC & Chem 7: 03/05/24 05:42 03/05/24 05:42 Labs: Abnormal Lab Results - Last 24 Hours (Table) 03/04/24 03/04/24 03/04/24 Range/Units 06:00 11:37 13:59 RBC 2.96 L 2.91 L (3.80-5.40) m/uL Hgb 8.8 L 8.7 L (11.4-16.0) gm/dL Hct 29.3 L 28.6 L (34.0-46.0) % MCHC 30.0 L 30.4 L (31.0-37.0) g/dL Lymphocytes # 0.8 L (1.0-4.8) k/uL Sodium (137-145) mmol/L Carbon Dioxide (22-30) mmol/L BUN (7-17) mg/dL Creatinine (0.52-1.04) mg/dL Glucose (74-99) mg/dL POC Glucose (mg/dL) 218 H (70-110) mg/dL Calcium (8.4-10.2) mg/dL 03/04/24 03/04/24 03/05/24 Range/Units 16:38 19:54 05:42 RBC (3.80-5.40) m/uL Hgb (11.4-16.0) gm/dL Hct (34.0-46.0) % MCHC (31.0-37.0) g/dL Lymphocytes # (1.0-4.8) k/uL Sodium 131 L (137-145) mmol/L Carbon Dioxide 21 L (22-30) mmol/L BUN 78 H (7-17) mg/dL Creatinine 4.68 H (0.52-1.04) mg/dL Glucose 58 L (74-99) mg/dL POC Glucose (mg/dL) 241 H 291 H (70-110) mg/dL Calcium 8.2 L (8.4-10.2) mg/dL 03/05/24 03/05/24 03/05/24 Range/Units 05:42 06:13 06:36 RBC 2.88 L (3.80-5.40) m/uL Hgb 8.5 L (11.4-16.0) gm/dL Hct 27.7 L (34.0-46.0) % MCHC 30.6 L (31.0-37.0) g/dL Lymphocytes # (1.0-4.8) k/uL Sodium (137-145) mmol/L Carbon Dioxide (22-30) mmol/L BUN (7-17) mg/dL Creatinine (0.52-1.04) mg/dL Glucose (74-99) mg/dL POC Glucose (mg/dL) 65 L 68 L (70-110) mg/dL Calcium (8.4-10.2) mg/dL 03/05/24 Range/Units 07:01 RBC (3.80-5.40) m/uL Hgb (11.4-16.0) gm/dL Hct (34.0-46.0) % MCHC (31.0-37.0) g/dL Lymphocytes # (1.0-4.8) k/uL Sodium (137-145) mmol/L Carbon Dioxide (22-30) mmol/L BUN (7-17) mg/dL Creatinine (0.52-1.04) mg/dL Glucose (74-99) mg/dL POC Glucose (mg/dL) 117 H (70-110) mg/dL Calcium (8.4-10.2) mg/dL
--- NOTE | 2024-03-05 09:22 | P.PN ---
Subjective Progress Note Date: 03/05/24 Principal diagnosis: Triple-vessel coronary artery disease, non-STEMI this admission, acute heart failure with reduced ejection fraction, new onset ischemic cardiomyopathy, moderate to severe mitral regurgitation, acute on chronic kidney disease, acute anemia. History of hypertension, hyperlipidemia, hypothyroid, diabetes mellitus, CVA, hepatitis as a child, CKD stage IV, previous tobacco dependence with recent cessation, severe COPD, previous methamphetamine use with recent cessation, family history of coronary artery disease POD #8 Off-pump CABG x 4 with sequential left internal mammary artery to left anterior descending coronary artery and diagonal coronary artery, reverse saphenous vein graft to the posterior descending coronary artery and second obtuse marginal coronary artery, closure of the left atrial appendage with 35mm AtriCure clip, placement of percutaneous right femoral intra-aortic balloon pump, transesophageal echocardiogram performed by anesthesia. Postoperative acute blood loss anemia, expected secondary to hemodilution and preoperative anemia Postoperative paroxysmal atrial fibrillation, a known common occurrence after cardiac surgery, not a complication The patient was seen and examined this morning sitting up in recliner in the intensive care unit in no acute distress. Her only real complaint remains of swollen legs. States pain is controlled on current medication regimen, denies shortness of breath except with ambulation. Currently in sinus rhythm, hemodynamically stable on IV Primacor. Hydralazine increased to 30 mg QID/is ordil and bumex added per cardiology, although patient did not get 0200 dose of hydralazine due to low blood pressure. Continues to diurese through her chest tubes with significant serous drainage from both pleural chest tubes. Currently on room air with oxygen saturation in the mid 90s. Only able to achieve 1000 mL on her incentive spirometry. She has been ambulatory with assistance and use of a walker for balance. Chest x-ray, labs reviewed. Discussed with Dr. Gillette. No other new concerns. Objective - Vital Signs Vital signs: Vital Signs Temp 97.5 F L 03/05/24 04:00 Pulse 64 03/05/24 07:00 Resp 21 03/05/24 07:00 BP 113/59 03/05/24 07:00 Pulse Ox 98 03/05/24 07:00 FiO2 40 02/26/24 16:39 Intake & Output 03/04/24 03/05/24 03/05/24 18:59 06:59 18:59 Intake Total 1312 872 46 Output Total 981 945 35 Balance 331 -73 11 Weight 89.2 kg Intake: IV 652 652 46 .9NS Cardiac Output 50 100 .9NS Pressure Bag 72 72 6 0.9 sodium chloride 480 480 40 Albumin Human 25% 50 ml 50 In Empty Bag 1 bag @ 50 mls/hr IVPB Q1H [facility] Rx#: [id number] Intake, IV Titration 100 Amount Milrinone-D5w Pmx 20 mg 100 In Dextrose/Water 1 100ml .bag @ 0.25 MCG/KG/MIN 5. 993 mls/hr IV .[id number] [facility] Rx#:[id number] Oral 560 220 Output: Chest Tube Drainage 848 645 20 Left Pleural Chest Tube 398 375 20 Right Pleural Chest Tube 450 270 Urine 133 300 15 Other: Voiding Method Indwelling Catheter Indwelling Catheter ABP, PAP, CO, CI - Last Documented Arterial Blood Pressure 139/47 Pulmonary Artery Pressure 34/16 Cardiac Output 4.1 Cardiac Index 2.2 - Exam CONSTITUTIONAL: Appears comfortable, cooperative, no acute distress RESPIRATORY: Lungs sounds diminished bilaterally. Respirations even, n onlabored. Currently on room air with oxygen saturation 94%. Able to achieve 1000 mL on incentive spirometry. Weak cough. CARDIOVASCULAR: S1, S2 present. Regular rate and rhythm, sinus rhythm on telemetry. Sternum stable. Palpable peripheral pulses bilaterally. Bilateral lower extremity edema present. No calf pain or tenderness noted. Heart hugger in place with patient demonstrating appropriate use. Antiembolism stockings, SCDs present. GASTROINTESTINAL: Abdomen soft, nontender, nondistended. Active bowel sounds present 4 quadrants. Tolerating diet. Positive bowel movement 03/03 GENITOURINARY: Saldaña present draining clear, yellow urine. Output overnight 15-30 mL per hour, 400 mL in the last 24 hours INTEGUMENTARY: Skin is warm and dry with evidence of good perfusion. Anterior chest incision well approximated and covered with dry intact dressing. Left lower extremity EVH site well approximated without redness or drainage. NEUROLOGIC: Cranial nerves II through XII intact MUSKULOSKELETAL: Able to move all extremities, strength equal bilaterally PSYCHIATRIC: Alert and oriented to person place and time, appropriate affect, intact judgment and insight INVASIVE LINES AND TUBES: Left/right pleural chest tubes present and connected to wall suction, no air leaks present. Left pleural chest tube with 85 mL serosanguineous drainage overnight, 770 mL in the last 24 hours. Right pleural chest tube with 110 mL serosanguineous drainage overnight, 700 mL last 24 hours. Right internal jugular [place]/Cordis present. Last CO/CI 4/2.2, PA 26/10, CVP 13. - Allied health notes Allied health notes reviewed: nursing - Labs CBC & Chem 7: 03/05/24 05:42 03/05/24 05:42 Labs: Abnormal Lab Results - Last 24 Hours (Table) 03/04/24 03/04/24 03/04/24 Range/Units 06:00 11:37 13:59 RBC 2.96 L 2.91 L (3.80-5.40) m/uL Hgb 8.8 L 8.7 L (11.4-16.0) gm/dL Hct 29.3 L 28.6 L (34.0-46.0) % MCHC 30.0 L 30.4 L (31.0-37.0) g/dL Lymphocytes # 0.8 L (1.0-4.8) k/uL Sodium (137-145) mmol/L Carbon Dioxide (22-30) mmol/L BUN (7-17) mg/dL Creatinine (0.52-1.04) mg/dL Glucose (74-99) mg/dL POC Glucose (mg/dL) 218 H (70-110) mg/dL Calcium (8.4-10.2) mg/dL 03/04/24 03/04/24 03/05/24 Range/Units 16:38 19:54 05:42 RBC (3.80-5.40) m/uL Hgb (11.4-16.0) gm/dL Hct (34.0-46.0) % MCHC (31.0-37.0) g/dL Lymphocytes # (1.0-4.8) k/uL Sodium 131 L (137-145) mmol/L Carbon Dioxide 21 L (22-30) mmol/L BUN 78 H (7-17) mg/dL Creatinine 4.68 H (0.52-1.04) mg/dL Glucose 58 L (74-99) mg/dL POC Glucose (mg/dL) 241 H 291 H (70-110) mg/dL Calcium 8.2 L (8.4-10.2) mg/dL 03/05/24 03/05/24 03/05/24 Range/Units 05:42 06:13 06:36 RBC 2.88 L (3.80-5.40) m/uL Hgb 8.5 L (11.4-16.0) gm/dL Hct 27.7 L (34.0-46.0) % MCHC 30.6 L (31.0-37.0) g/dL Lymphocytes # (1.0-4.8) k/uL Sodium (137-145) mmol/L Carbon Dioxide (22-30) mmol/L BUN (7-17) mg/dL Creatinine (0.52-1.04) mg/dL Glucose (74-99) mg/dL POC Glucose (mg/dL) 65 L 68 L (70-110) mg/dL Calcium (8.4-10.2) mg/dL 03/05/24 Range/Units 07:01 RBC (3.80-5.40) m/uL Hgb (11.4-16.0) gm/dL Hct (34.0-46.0) % MCHC (31.0-37.0) g/dL Lymphocytes # (1.0-4.8) k/uL Sodium (137-145) mmol/L Carbon Dioxide (22-30) mmol/L BUN (7-17) mg/dL Creatinine (0.52-1.04) mg/dL Glucose (74-99) mg/dL POC Glucose (mg/dL) 117 H (70-110) mg/dL Calcium (8.4-10.2) mg/dL - Imaging and Cardiology Chest x-ray: image reviewed Assessment and Plan Assessment: Triple-vessel coronary artery disease, non-STEMI this admission, status post four-vessel off-pump CABG Acute heart failure with reduced ejection fraction, 20-25%, 35% on [place] New onset ischemic cardiomyopathy Moderate to severe mitral regurgitation on transthoracic echocardiogram, mild mitral regurgitation on [place] Acute on chronic kidney disease secondary to ATN secondary to cardiorenal syn drome Acute anemia Hypertension Hyperlipidemia, treated, cholesterol 150, LDL 72.8 Hypothyroid, TSH 1.73 Diabetes mellitus, hemoglobin A1c 7.1% CVA Hepatitis as a child CKD Previous tobacco dependence with recent cessation Severe COPD, preoperative FEV1 27% of predicted Previous methamphetamine use with recent cessation Family history of coronary artery disease with sister having multiple stents Postoperative acute blood loss anemia, expected Postoperative paroxysmal atrial fibrillation, status post ligation of the left atrial appendage, currently sinus Plan: Continue to maximize medical therapy with aspirin, statin, Plavix, beta-alex. Will increase beta-alex as tolerated. Continue hydralazine for afterload reduction, increased yesterday and isordil added by cardiology, will increase hydralazine to 40 mg Q6hr Continue Primacor, decrease dose to 0.2 mcg/kg/min Continue oral amiodarone for A-fib prophylaxis, will decrease dose to 200 mg twice daily today Encourage incentive spirometry use 10 times every hour while awake. Bronchodilators per pulmonology Increase activity, ambulate as tolerated. PT/OT/cardiac rehab consulted Will monitor daily labs and x-rays. Electrolyte replacement per protocol. IV bumex added yesterday by cardiology GI/DVT prophylaxis DC swan, will obtain double lumen PICC then DC cordis Decision regarding dialysis per nephrology Pain control per current medication regimen. Avoid Toradol due to kidney failure Insulin management per internal medicine Continue pleural chest tubes for another 24 hours due to high output Continue Saldaña catheter for another 24 hours, continue to record strict accurate intake and output Daily weights More recommendations to follow
--- NOTE | 2024-03-05 11:36 | P.PN ---
Subjective patient is seen for follow-up for acute kidney injury. Patient remains on Primacor. Urine output about 20-30 mL an hour. Currently maintained on IV Bumex every 12 hours. serum creatinine at 4.6 mg/dL today. Patient needs a PICC line. Objective - Vital Signs Vital signs: Vital Signs Temp 97.8 F 03/05/24 09:00 Pulse 63 03/05/24 11:00 Resp 15 03/05/24 11:00 BP 111/54 03/05/24 11:00 Pulse Ox 96 03/05/24 11:00 FiO2 40 02/26/24 16:39 Intake & Output 03/04/24 03/05/24 03/05/24 18:59 06:59 18:59 Intake Total 1312 872 670.39 Output Total 981 945 305 Balance 331 -73 365.39 Weight 89.2 kg Intake: IV 652 652 376 .9NS Cardiac Output 50 100 100 .9NS Pressure Bag 72 72 36 0.9 sodium chloride 480 480 240 Albumin Human 25% 50 ml 50 In Empty Bag 1 bag @ 50 mls/hr IVPB Q1H [facility] Rx#: [id number] Intake, IV Titration 100 94.39 Amount Milrinone-D5w Pmx 20 mg 100 94.39 In Dextrose/Water 1 100ml .bag @ 0.2 MCG/KG/MIN 4. 794 mls/hr IV .[id number] [facility] Rx#:[id number] Oral 560 220 200 Output: Chest Tube Drainage 848 645 230 Left Pleural Chest Tube 398 375 140 Right Pleural Chest Tube 450 270 90 Urine 133 300 75 Other: Voiding Method Indwelling Catheter Indwelling Catheter ABP, PAP, CO, CI - Last Documented Arterial Blood Pressure 139/47 Pulmonary Artery Pressure 30/10 Cardiac Output 3.8 Cardiac Index 2 - Exam patient is awake, comfortable, no acute distress Alert oriented 3 Examination of the heart S1 and S2 Examination of the lungs bilateral breath sounds are heard, decreased breath sounds at the bases Abdomen is soft nontender Examination of lower extremities shows 2+ edema. MEDIA SPECIALIST exam grossly intact - Labs CBC & Chem 7: 03/05/24 05:42 03/05/24 05:42 Labs: Abnormal Lab Results - Last 24 Hours (Table) 03/04/24 03/04/24 03/04/24 Range/Units 06:00 11:37 13:59 RBC 2.96 L 2.91 L (3.80-5.40) m/uL Hgb 8.8 L 8.7 L (11.4-16.0) gm/dL Hct 29.3 L 28.6 L (34.0-46.0) % MCHC 30.0 L 30.4 L (31.0-37.0) g/dL Lymphocytes # 0.8 L (1.0-4.8) k/uL Sodium (137-145) mmol/L Carbon Dioxide (22-30) mmol/L BUN (7-17) mg/dL Creatinine (0.52-1.04) mg/dL Glucose (74-99) mg/dL POC Glucose (mg/dL) 218 H (70-110) mg/dL Calcium (8.4-10.2) mg/dL 03/04/24 03/04/24 03/05/24 Range/Units 16:38 19:54 05:42 RBC (3.80-5.40) m/uL Hgb (11.4-16.0) gm/dL Hct (34.0-46.0) % MCHC (31.0-37.0) g/dL Lymphocytes # (1.0-4.8) k/uL Sodium 131 L (137-145) mmol/L Carbon Dioxide 21 L (22-30) mmol/L BUN 78 H (7-17) mg/dL Creatinine 4.68 H (0.52-1.04) mg/dL Glucose 58 L (74-99) mg/dL POC Glucose (mg/dL) 241 H 291 H (70-110) mg/dL Calcium 8.2 L (8.4-10.2) mg/dL 03/05/24 03/05/24 03/05/24 Range/Units 05:42 06:13 06:36 RBC 2.88 L (3.80-5.40) m/uL Hgb 8.5 L (11.4-16.0) gm/dL Hct 27.7 L (34.0-46.0) % MCHC 30.6 L (31.0-37.0) g/dL Lymphocytes # (1.0-4.8) k/uL Sodium (137-145) mmol/L Carbon Dioxide (22-30) mmol/L BUN (7-17) mg/dL Creatinine (0.52-1.04) mg/dL Glucose (74-99) mg/dL POC Glucose (mg/dL) 65 L 68 L (70-110) mg/dL Calcium (8.4-10.2) mg/dL 03/05/24 Range/Units 07:01 RBC (3.80-5.40) m/uL Hgb (11.4-16.0) gm/dL Hct (34.0-46.0) % MCHC (31.0-37.0) g/dL Lymphocytes # (1.0-4.8) k/uL Sodium (137-145) mmol/L Carbon Dioxide (22-30) mmol/L BUN (7-17) mg/dL Creatinine (0.52-1.04) mg/dL Glucose (74-99) mg/dL POC Glucose (mg/dL) 117 H (70-110) mg/dL Calcium (8.4-10.2) mg/dL Assessment and Plan Assessment: 1. Acute kidney injury secondary to ATN secondary to cardiorenal syndrome. Creatinine at 4.6 today. Creatinine as low as 0.98 dated March 01, 2022. No hydronephrosis noted on kidney ultrasound. Serologies negative. good urine output. 2. Acute on chronic systolic CHF with ejection fraction of 20 to 25% with moderate to severe mitral regurgitation and mild pulmonary hypertension. 3. Volume overload. 4. Anemia. Iron deficiency noted. Status post IV iron. On Aranesp. GI following. Status post blood transfusion this admission. 5. Metabolic acidosis secondary to acute kidney injury. On oral bicarb. Stable. 6. Hypervolemic hyponatremia. Also component of hypertonicity from hype rglycemia. Better. 7. Urinary retention status post Saldaña catheter placement. On Flomax. 8. Status post coronary artery bypass surgery 02/26/2024 Plan: continue current dose of IV Bumex. Okay to proceed with PICC line in the right arm. Patient will be monitored closely for need for renal replacement therapy. Add Zaroxolyn for volume overload. Repeat labs in a.m.
--- NOTE | 2024-03-05 12:00 | P.PN ---
Subjective Progress Note Date: 03/05/24 Principal diagnosis: Acute hypoxic respiratory failure secondary to acute systolic congestive heart failure and ischemic cardiomyopathy Patient is a 58-year-old white female with past medical history significant for COPD, chronic ongoing tobacco dependence, CVA/TIA, diabetes mellitus, hyperlipidemia, hypertension, hypothyroidism, fibromyalgia, GERD, among other things. Patient presented back on 02/06/2024 from detention with chief complaint of increased lower extremity swelling. She states that she first noted the swelling back in December,. It is progressively worsened, she states she has gained approximately 20 pounds over the last 2 months. Approximately 10 days ago she was awoken at night with substernal chest pain. Nonradiating. With associated shortness of breath and sweating. Lasted up to 15 minutes. She is also had a nonproductive cough. She was noted to be febrile this admission. She is empirically covered on antibiotics. On arrival to the emergency room, she was noted to have elevated troponins of 1.29, 1.76, and 2.2. EKG showed normal sinus rhythm with left bundle branch block, without any other acute ischemic changes. No previous EKG for comparison. She was started on heparin infusion per protocol. She also was on a Nitropaste. Echocardiogram showed a severely impaired left ventricular ejection fraction of 20 to 25%, and moderate to severe mitral regurgitation. Today, she was started on a Lasix infusion at 5 mg/h. Heparin infusion was stopped as the patient is anemic. Patient denies any acute blood loss. No vaginal bleeding. No juan blood in stool. No melena. No nausea or vomiting or hematic emesis. Last colonoscopy was reportedly around 10 years ago. She is currently lying in bed, on 2 L/min nasal cannula. Chest x-ray on admission shows diffuse interstitial edema as well as bilateral consolidation and small effusions. Findings consistent with congestive heart failure. NT proBNP was elevated 25,000. Patient not making much urine despite Lasix infusion. Patient did have 1 episode of fever during her admission with a Tmax of 100.2 F. She was empirically she was empirically placed on Rocephin. Negative for influenza, RSV, COVID. Most recent BMP from today: Sodium 130, potassium 5.1, chloride 104, serum bicarb down to 17, BUN 63, creatinine worsening and 3.34, glucose 229. LFTs mildly elevated. Hepatitis panel nonreactive. Overall, hemodynamically stable. On 02/08/2024, seen the patient for a follow-up. The patient is currently on 3 L of oxygen by nasal cannula with a pulse ox of 94%. She should be able to wean down. She is on Lasix drip at 5 mg an hour and the patient is producing adequ ate amount of urine output. Her fluid balance is negative. As mentioned, the patient is post non-ST segment ovation myocardial infarction the patient is being seen by cardiology. The patient has severe cardiomyopathy with impaired left ventricular ejection fraction. Her blood work from today shows a BUN of 66 with a creatinine of 3.41 and this is consistent with an acute on chronic kidney injury. Sodium levels at 129, potassium is at 4.4 with a WBC count of 6.3 and a hemoglobin of 7.4. The patient is on IV Rocephin as an empiric antibiotic coverage. She is currently afebrile. The patient is being seen by cardiology. The patient will be kept on IV Lasix. Not a candidate for any invasive cardiac workup due to her acute on top of chronic kidney injury at this point in time. Her comorbidities are multiple. Unsure if she does have underlying coronary artery disease. Nevertheless, she has previous history of CVA, diabetes mellitus type 2, hypothyroidism and CHF. She was in detention for being arrested due to possession of amphetamines. Vasculitis workup was negative including a n egative EDSON and a negative P and C ANCA. Hepatitis profile was also negative. On 02/10/2024, the patient is being seen for a follow-up. No new complaints. No significant shortness of breath at rest. Remains on Lasix drip. Producing adequate amount of urine output. Blood work from today was noticed that the patient has a white cell count of 6 with a hemoglobin of 7.2 and a PET scan at 360. BUN 69 with a creatinine of 3.4 and a sodium levels at 129. The patient is being seen by cardiology and nephrology addition. She remains on Lasix drip which will be increased up to 10 mg an hour. Not a candidate for further cardiac catheterization based on underlying renal dysfunction. 02/11/2024, the patient is being seen for a follow-up. No new complaints. Monitor for improvement in her condition. She remains on 2 L of oxygen by nasal cannula. Fluid balance is -90 cc over the past 24 hours. Suboptimal response to diuretics and the patient remains on Lasix at 10 mg an hour. BUN 71 with a creatinine of 3.7, slightly worse compared to yesterday. Sodium is at 131. The patient denies having any chest pain. No significant hypotension. Remains on aspirin. Remains on metoprolol 25 mg p.o. twice a day. Cardiology on the case. She has significant cardiomyopathy. She is post acute non-STEMI. Not a candidate for cardiac catheterization due to renal impairment. The patient is seen today February 12, 2024 in follow-up on the selective care unit. She is currently sitting up in bed. Awake and alert in no acute distress. She is maintaining O2 saturation in the 90s on 3 L nasal cannula. She is afebrile. Hemodynamically stable. Today's chest x-ray reviewed reveals diffuse bilateral infiltrates with small effusion or early congestive heart failure. Hemoglobin 6.7. 1 unit of packed blood cells have been ordered. Platelets 362. White count 6.1. Sodium 131. Potassium 4.2. Bicarb 21. BUN 80. Creatinine 3.89. Glucose 286. She remains on. Antibiotics in the form of ceftriaxone. Remains on a Lasix drip at 5 mg an hour. Currently in a -178 mL balance. The patient is seen today February 13, 2024 in follow-up on the selective care unit. She is awake and alert in no acute distress. Sitting up in bed. Blood and urine cultures revealed no growth. White count 6.2. Hemoglobin 7.4. Platelets 01/05/1978. Sodium 133. Potassium 3.9. Bicarb 21. BUN 83. Creatinine 3.60. Glucose 154. She remains on a Lasix drip currently at 5 mg/h. She remains on a heparin drip. Receiving sodium bicarb tablets. Continued on bronchodilators. Continued on antibiotics in the form of ceftriaxone. She is currently in a negative balance. Voided 1 L today. The patient is seen today February 14, 2024 in follow-up on the selective care unit. She is currently sitting up in bed. Awake and alert in no acute distress. She is maintaining good O2 saturations in the 90s on 3 L/min per nasal cannula. She is afebrile. Hemodynamically stable. Follow-up chest x-ray continues to show diffuse bilateral infiltrate with small effusions. She is status post 1 unit of packed red blood cells this admission. Last hemoglobin 7.7. Sodium 135. Potassium 4.6. Bicarb 20. BUN 87. Creatinine 3.55. Glucose 358. She is continued on bronchodilators. Antibiotics in form of ceftriaxone. She remains on a Lasix drip at 10 mg/h. Receiving sodium bicarb tablets. Currently -688 mL balance. Nephrology is following. The patient is seen today February 15, 2024 in follow-up on the selective care unit. She is currently sitting up in bed awake and alert in no acute distress. She is maintaining O2 saturations in the mid 90s on 2 L/min per nasal cannula. She is afebrile. Hemodynamically stable. White count 6.8. Hemoglobin 8.6. Platelets 438. Sodium 135. Potassium 4.0. Bicarb 21. BUN 84. Creatinine 3.41. Glucose 171. She remains on a Lasix drip at 10 mg/h. Continued on a heparin drip. Plan to -1 L balance. Stress testing today reveals a large area of fixed defect involving all segments of the myocardium suggestive of remote ischemia. Could not exclude a tiny area of stress-induced reversibility within the apex. Reduced wall motion activity with ejection fraction of only 21%. Patient was seen and examined today on 02/16/2024 patient is feeling better today, continues to diurese with a Lasix drip, remains in negative fluid balance, patient underwent cardiac catheterization today and she was found to have severe triple-vessel coronary artery disease, now she is being evaluated by surgery, patient does have severe LV dysfunction, she is definitely high surgical risk, but no absolute contraindication to surgery.Basic metabolic profile is normal BUN is 85 creatinine 3.58 however the patient may require hemodialysis, and she will need nephrology clearance she will also need a bedside spirometry/FEV1 for preoperative pulmonary clearance in the meantime we will continue diuretics/Lasix drip Patient was reevaluated today on 02/17/2024, remains on Lasix drip, remains in negative fluid balance, patient is very well aware that she had abnormal cardiac catheterization and now she is being evaluated for possible myocardial revascularization. Patient remains on oxygen at 2 L/min and her O2 sats is 97%, her PFT showed severe obstructive lung disease, however not severe enough to not consider myocardial revascularization if the patient is cleared by other con sultants including nephrology and cardiology. Patient has been a smoker over the years, she had at least a [id number] smoking history. Remind you patient had a PFT with chest x-ray still showing evidence of pulmonary edema which will definitely compromise her PFT will likely reflect more restriction than obstructive lung disease. WBC count today is 4.9 hemoglobin 7.7 electrolytes are normal BUN is 85 creatinine 3.59 Patient was reevaluated today on 02/18/2024, remains on Lasix drip, 10 mg/h, remains in constant negative fluid balance, chest x-ray today is definitely showing improvement but nonetheless her pulmonary edema is not completely resolved. Patient was being considered for CABG however the plan is presently on hold because of her overall pulmonary status and possibly the patient could benefit from more optimization of her congestive heart failure. In the meantime she seems to be doing better with the Lasix drip. Patient is also maintained on bronchodilators for her underlying COPD. Patient was seen today on 03/05/2024, patient is now postoperative day #8Off-pump CABG x 4 with sequential left internal mammary artery to left anterior descending coronary artery and diagonal coronary artery, reverse saphenous vein graft to the posterior descending coronary artery and second obtuse marginal coronary artery, closure of the left atrial appendage with 35mm AtriCure clip, placement of percutaneous right femoral intra-aortic balloon pump, transesophageal echocardiogram performed by anesthesia. And is on room air, sitting at the bedside recliner, is in the ICU, not in any distress. Have fluid buildup and bipedal edema. Renal functioning is a bit worse, but the patient is making urine, remains on Primacor at 0.25 mcg/kg/min, intermittently on diuretics, no plans for hemodialysis at this point yet. To have both pleural chest tubes in place, giving over 1000 cc on her incentive spirometry, patient is ambulating with assistance. Chest x-ray minimal bilateral biapical pneumothoraces, and it it showed mild congestive heart failure. WBC is 5.8 hemoglobin 8.5 electrolytes are normal BUN is 78 creatinine 4.68 he is on oral amiodarone. He is also on aspirin and statins. Well as Plavix. For diuretics, patient is receiving Bumex 2 mg IV push every 12 hours for patient is also receiving bicarb 650 mg p.o. twice daily. Remains on GI and DVT prophylaxis. Objective - Vital Signs Vital signs: Vital Signs Temp 97.8 F 03/05/24 09:00 Pulse 63 03/05/24 11:00 Resp 15 03/05/24 11:00 BP 111/54 03/05/24 11:00 Pulse Ox 96 03/05/24 11:00 FiO2 40 02/26/24 16:39 Intake & Output 03/04/24 03/05/24 03/05/24 18:59 06:59 18:59 Intake Total 1312 872 670.39 Output Total 981 945 305 Balance 331 -73 365.39 Weight 89.2 kg Intake: IV 652 652 376 .9NS Cardiac Output 50 100 100 .9NS Pressure Bag 72 72 36 0.9 sodium chloride 480 480 240 Albumin Human 25% 50 ml 50 In Empty Bag 1 bag @ 50 mls/hr IVPB Q1H LYNDSAY Rx#: [id number] Intake, IV Titration 100 94.39 Amount Milrinone-D5w Pmx 20 mg 100 94.39 In Dextrose/Water 1 100ml .bag @ 0.2 MCG/KG/MIN 4. 794 mls/hr IV .[id number] LYNDSAY Rx#:[id number] Oral 560 220 200 Output: Chest Tube Drainage 848 645 230 Left Pleural Chest Tube 398 375 140 Right Pleural Chest Tube 450 270 90 Urine 133 300 75 Other: Voiding Method Indwelling Catheter Indwelling Catheter ABP, PAP, CO, CI - Last Documented Arterial Blood Pressure 139/47 Pulmonary Artery Pressure 30/10 Cardiac Output 3.8 Cardiac Index 2 - Exam GENERAL EXAM: Alert, 58-year-old female, in a bedside recliner, on room air, does not seem to be in any distress. HEAD: Normocephalic and atraumatic EYES: Normal reaction of pupils, equal size. NOSE: Clear with pink turbinates. THROAT: No erythema or exudates. NECK: No masses, no JVD. CHEST: No chest wall deformity. LUNGS: Equal air entry with bibasilar crackles, bilateral pleural chest tubes noted. CVS: S1 and S2 normal with no audible murmur, regular rhythm. No extra heart sounds ABDOMEN: No hepatosplenomegaly, active bowel sounds, no guarding or rigidity. SKIN: No rashes CENTRAL NERVOUS SYSTEM: Alert oriented x 3 no gross focal deficit EXTREMITIES: 1 Plus bipedal edema - Labs CBC & Chem 7: 03/05/24 05:42 03/05/24 05:42 Labs: Abnormal Lab Results - Last 24 Hours (Table) 03/04/24 03/04/24 03/04/24 Range/Units 06:00 13:59 16:38 RBC 2.96 L 2.91 L (3.80-5.40) m/uL Hgb 8.8 L 8.7 L (11.4-16.0) gm/dL Hct 29.3 L 28.6 L (34.0-46.0) % MCHC 30.0 L 30.4 L (31.0-37.0) g/dL Lymphocytes # 0.8 L (1.0-4.8) k/uL Sodium (137-145) mmol/L Carbon Dioxide (22-30) mmol/L BUN (7-17) mg/dL Creatinine (0.52-1.04) mg/dL Glucose (74-99) mg/dL POC Glucose (mg/dL) 241 H (70-110) mg/dL Calcium (8.4-10.2) mg/dL 03/04/24 03/05/24 03/05/24 Range/Units 19:54 05:42 05:42 RBC 2.88 L (3.80-5.40) m/uL Hgb 8.5 L (11.4-16.0) gm/dL Hct 27.7 L (34.0-46.0) % MCHC 30.6 L (31.0-37.0) g/dL Lymphocytes # (1.0-4.8) k/uL Sodium 131 L (137-145) mmol/L Carbon Dioxide 21 L (22-30) mmol/L BUN 78 H (7-17) mg/dL Creatinine 4.68 H (0.52-1.04) mg/dL Glucose 58 L (74-99) mg/dL POC Glucose (mg/dL) 291 H (70-110) mg/dL Calcium 8.2 L (8.4-10.2) mg/dL 03/05/24 03/05/24 03/05/24 Range/Units 06:13 06:36 07:01 RBC (3.80-5.40) m/uL Hgb (11.4-16.0) gm/dL Hct (34.0-46.0) % MCHC (31.0-37.0) g/dL Lymphocytes # (1.0-4.8) k/uL Sodium (137-145) mmol/L Carbon Dioxide (22-30) mmol/L BUN (7-17) mg/dL Creatinine (0.52-1.04) mg/dL Glucose (74-99) mg/dL POC Glucose (mg/dL) 65 L 68 L 117 H (70-110) mg/dL Calcium (8.4-10.2) mg/dL Assessment and Plan Assessment: Impression: Severe triple-vessel coronary artery disease based on cardiac catheterization 02/16/2024 Post CABG postoperative day #8. Patient had 4 vessels off-pump CABG. Severe ischemic cardiomyopathy and LV dysfunction repeat echocardiogram is pending. Severe mitral valve regurgitation, on trans thoracic echocardiogram, but she had mild mitral regurgitation on [place]. Acute kidney injury, likely cardiorenal, worsening creatinine, being followed by nephrology. No plans for dialysis at this point Metabolic non-anion gap acidosis, secondary to above Chronic obstructive pulmonary disease, stable Diabetes mellitus type 1 History of hyperlipidemia History of hypertension History of CVA/TIA History of hypothyroidism History of fibromyalgia History of GERD Mildly elevated LFTs, hepatitis panel nonreactive Former tobacco smoker, 1/2 pack/day or approximately 15-year pack history Postoperative paroxysmal atrial fibrillation, expected. Severe underlying COPD Recommendation: Continue maximal medical therapy including aspirin statin Plavix and beta- blockers Titrate Primacor and possibly discontinue in the next 24 hours Continue oral amiodarone Continue GI prophylaxis and DVT prophylaxis Continue to monitor in the ICU Pleural chest tubes to remain for 24 more hours. Continue incentive spirometry Continue ambulation Repeat echocardiogram, results are pending Continue daily weights Continue strict I's and O's Continue strict monitoring of renal profile Will continue to follow Time with Patient: Less than 30
[2024-03-05 12:29] LABS: Glucose,Whole Blood 179 mg/dL (70-110)
[2024-03-05] MEDS: hydrALAZINE HCL 10 MG TAB PO SCH (12:34)
[2024-03-05] MEDS: metOLazone 5 MG TAB PO SCH (13:02)
--- NOTE | 2024-03-05 13:03 | XR ---
EXAMINATION TYPE: XR chest 1V confirm line [facility] DATE OF EXAM: 03/05/2024 COMPARISON: 03/05/2024 HISTORY: PICC line placement TECHNIQUE: Single frontal view of the chest is obtained. The measures 5% or less on the right and has demonstrated mild progression on the left measuring 5-10 %. FINDINGS: Small biapical pneumothoraces stable. Bilateral chest tubes. Diffuse interstitial pattern with tiny pleural effusion and basilar infiltrate. Post median sternotomy. [place]-Jamal catheter stable. Osseous structures unchanged. Right-sided PICC line seen with the tip overlying the SVC. IMPRESSION: PICC line in good position. Bilateral apical pneumothoraces slightly increased on the le ft relative to the prior exam.
[2024-03-05 16:45] LABS: Glucose,Whole Blood 264 mg/dL (70-110)
--- NOTE | 2024-03-05 18:48 | CA ---
Transthoracic Echo Report Name: Mila Camilo Age: 58 Gender: F : 1965 Exam Date: 03/05/2024 14:59 Exam Location: [facility] Ht (in): 68 Wt (lb): 196 Ordering Physician: Carol Roth Attending/Referring Phys: [id number], Ira Director Of Catering Sales Ruth Ann Barron RDCS Procedure CPT: Indications: ischemic cardiomyopathy Cardiac Hx: Technical Quality: Technically difficult study Contrast 1: Definity Total Dose (mL): 2 Contrast 2: Total Dose (mL): MEASUREMENTS (Male / Female) Normal Values 2D ECHO LV Diastolic Diameter PLAX 4.5 cm 4.2 - 5.9 / 3.9 - 5.3 cm LV Systolic Diameter PLAX 3.9 cm IVS Diastolic Thickness 1.2 cm 0.6 - 1.0 / 0.6 - 0.9 cm LVPW Diastolic Thickness 1.2 cm 0.6 - 1.0 / 0.6 - 0.9 cm LV Relative Wall Thickness 0.5 FINDINGS Left Ventricle Mildly increased septal wall thickness. Mildly increased posterior wall thickness. Severely reduced global left ventricular systolic function. Intraventricular dyssynchrony. Left ventricular ejection fraction is estimated at 15-20 %. Right Ventricle Right Atrium Left Atrium Mitral Valve Aortic Valve Tricuspid Valve Pulmonic Valve Pericardium No pericardial effusion. Aorta CONCLUSIONS Severely reduced global left ventricular systolic function. Left ventricular ejection fraction is estimated at 15-20 %. Atypical septal motion with intraventricular dyssynchrony. No obvious evidence of LV thrombus on contrast image No pericardial effusion. Previewed by: Dr Farhat Montgomery (Electronically Signed) Final Date: 05 Mar 2024 18:48
[2024-03-05 20:08] LABS: Glucose,Whole Blood 312 mg/dL (70-110)
[2024-03-06 06:20] LABS: Glucose,Whole Blood 71 mg/dL (70-110)
[2024-03-06 06:49] LABS: HCT 29.7 % (34.0-46.0); HGB 8.9 gm/dL (11.4-16.0); Hypochromasia Marked; MCH 29.6 pg (25.0-35.0); MCHC 29.9 g/dL (31.0-37.0); MCV 98.9 fL (80.0-100.0); Macrocytosis Slight; Mean Platelet Volume 8.3; Platelet Count 339 k/uL (150-450); RDW 14.8 % (11.5-15.5); WBC 5.9 k/uL (3.8-10.6)
[2024-03-06 06:53] LABS: African American GFR (CKD) 11 (>60 ml/min/1.73 sqM); Anion Gap 10 mmol/L; Blood Urea Nitrogen 83 mg/dL (7-17); Calcium 8.3 mg/dL (8.4-10.2); Carbon Dioxide 19 mmol/L (22-30); Chloride 103 mmol/L (98-107); Glucose 61 mg/dL (74-99); Non-African American GFR(CKD) 10 (>60 ml/min/1.73 sqM); Potassium 4.6 mmol/L (3.5-5.1); Sodium 132 mmol/L (137-145)
--- NOTE | 2024-03-06 07:55 | XR ---
EXAMINATION TYPE: XR chest 1V portable DATE OF EXAM: 03/06/2024 COMPARISON: 03/05/2024 INDICATION: Postcardiac surgery TECHNIQUE: Single frontal view of the chest is obtained. FINDINGS: The heart size is normal. The pulmonary vasculature is normal. Mild left lower lobe infiltrate may be present silhouetting the diaphragm. No pneumothorax is evident. Bilateral chest tubes are present. PICC line enters on the right with the tip in the proximal right atrium. [place] catheter is been removed. IMPRESSION: 1. Left lower lobe infiltrate silhouetting the diaphragm. Small effusion could be considered within t he differential. 2. Lines and catheters discussed above.
--- NOTE | 2024-03-06 08:16 | P.PN ---
Subjective Progress Note Date: 03/06/24 Principal diagnosis: Triple-vessel coronary artery disease, non-STEMI this admission, acute heart failure with reduced ejection fraction, new onset ischemic cardiomyopathy, moderate to severe mitral regurgitation, acute on chronic kidney disease, acute anemia. History of hypertension, hyperlipidemia, hypothyroid, diabetes mellitus, CVA, hepatitis as a child, CKD stage IV, previous tobacco dependence with recent cessation, severe COPD, previous methamphetamine use with recent cessation, family history of coronary artery disease POD #9 Off-pump CABG x 4 with sequential left internal mammary artery to left anterior descending coronary artery and diagonal coronary artery, reverse saphenous vein graft to the posterior descending coronary artery and second obtuse marginal coronary artery, closure of the left atrial appendage with 35mm AtriCure clip, placement of percutaneous right femoral intra-aortic balloon pump, transesophageal echocardiogram performed by anesthesia. Postoperative acute blood loss anemia, expected secondary to hemodilution and preoperative anemia Postoperative paroxysmal atrial fibrillation, a known common occurrence after cardiac surgery, not a complication The patient was seen and examined with Dr. Dowd this morning sitting up in recliner in the intensive care unit in no acute distress. States pain is controlled on current medication regimen, denies shortness of breath except with ambulation. Currently in sinus rhythm, hemodynamically stable on IV Primacor. Continues to diurese through her chest tubes with significant serous drainage from both pleural chest tubes. Urine output has picked up a bit in the last 24 hours. Currently on room air with oxygen saturation in the mid 90s. Only able to achieve 1000 mL on her incentive spirometry. She has been ambulatory with assistance and use of a walker for balance. Chest x-ray, labs reviewed. No other new concerns. Objective - Vital Signs Vital signs: Vital Signs Temp 98.5 F 03/06/24 01:00 Pulse 62 03/06/24 07:00 Resp 16 03/06/24 07:00 BP 121/60 03/06/24 07:00 Pulse Ox 96 03/06/24 07:00 FiO2 40 02/26/24 16:39 Intake & Output 03/05/24 03/06/24 03/06/24 18:59 06:59 18:59 Intake Total 735.39 739.084 13 Output Total 544 1085 60 Balance 191.39 -345.916 -47 Weight 89.7 kg Intake: IV 441 156 13 .9NS Cardiac Output 60 .9NS Pressure Bag 51 36 3 0.9 sodium chloride 330 120 10 Intake, IV Titration 94.39 93.084 Amount Milrinone-D5w Pmx 20 mg 94.39 93.084 In Dextrose/Water 1 100ml .bag @ 0.2 MCG/KG/MIN 4. 794 mls/hr IV .[id number] [facility] Rx#:[id number] Oral 200 Tube Feeding 490 Output: Chest Tube Drainage 350 610 30 Left Pleural Chest Tube 200 330 20 Right Pleural Chest Tube 150 280 10 Urine 194 475 30 Other: Voiding Method Indwelling Catheter Indwelling Catheter ABP, PAP, CO, CI - Last Documented Arterial Blood Pressure 139/47 Pulmonary Artery Pressure 36/20 Cardiac Output 4.2 Cardiac Index 2.3 - Exam CONSTITUTIONAL: Appears comfortable, cooperative, no acute distress RESPIRATORY: Lungs sounds diminished bilaterally. Respirations even, nonlabored. Currently on room air with oxygen saturation 96%. Able to achieve 1000 mL on incentive spirometry. Weak cough. CARDIOVASCULAR: S1, S2 present. Regular rate and rhythm, sinus rhythm on telemetry. Sternum stable. Palpable peripheral pulses bilaterally. Bilateral lower extremity edema present. No calf pain or tenderness noted. Heart hugger in place with patient demonstrating appropriate use. Antiembolism stockings, SCDs present. GASTROINTESTINAL: Abdomen soft, nontender, nondistended. Active bowel sounds present 4 quadrants. Tolerating diet. Positive bowel movement 03/03 GENITOURINARY: Saldaña present draining clear, yellow urine. Output overnight 25-50 mL per hour, 670 mL in the last 24 hours INTEGUMENTARY: Skin is warm and dry with evidence of good perfusion. Anterior chest incision well approximated and covered with dry intact dressing. Left lower extremity EVH site well approximated without redness or drainage. NEUROLOGIC: Cranial nerves II through XII intact MUSKULOSKELETAL: Able to move all extremities, strength equal bilaterally PSYCHIATRIC: Alert and oriented to person place and time, appropriate affect, intact judgment and insight INVASIVE LINES AND TUBES: Left/right pleural chest tubes present and connected to wall suction, no air leaks present. Left pleural chest tube with 210 mL serosanguineous drainage overnight, 700 mL in the last 24 hours. Right pleural chest tube with 120 mL serosanguineous drainage overnight, 450 mL last 24 hours. Right internal jugular cordis present. Last CVP 11. - Allied health notes Allied health notes reviewed: nursing - Labs CBC & Chem 7: 03/06/24 05:51 03/06/24 05:51 Labs: Abnormal Lab Results - Last 24 Hours (Table) 03/05/24 03/05/24 03/05/24 Range/Units 12:28 16:41 20:06 RBC (3.80-5.40) m/uL Hgb (11.4-16.0) gm/dL Hct (34.0-46.0) % MCHC (31.0-37.0) g/dL Sodium (137-145) mmol/L Carbon Dioxide (22-30) mmol/L BUN (7-17) mg/dL Creatinine (0.52-1.04) mg/dL Glucose (74-99) mg/dL POC Glucose (mg/dL) 179 H 264 H 312 H (70-110) mg/dL Calcium (8.4-10.2) mg/dL 03/06/24 03/06/24 Range/Units 05:51 05:51 RBC 3.00 L (3.80-5.40) m/uL Hgb 8.9 L (11.4-16.0) gm/dL Hct 29.7 L (34.0-46.0) % MCHC 29.9 L (31.0-37.0) g/dL Sodium 132 L (137-145) mmol/L Carbon Dioxide 19 L (22-30) mmol/L BUN 83 H (7-17) mg/dL Creatinine 4.59 H (0.52-1.04) mg/dL Glucose 61 L (74-99) mg/dL POC Glucose (mg/dL) (70-110) mg/dL Calcium 8.3 L (8.4-10.2) mg/dL - Imaging and Cardiology Chest x-ray: report reviewed, image reviewed Assessment and Plan Assessment: Triple-vessel coronary artery disease, non-STEMI this admission, status post four-vessel off-pump CABG Acute heart failure with reduced ejection fraction, 20-25%, 35% on [place] New onset ischemic cardiomyopathy Moderate to severe mitral regurgitation on transthoracic echocardiogram, mild mitral regurgitation on [place] Acute on chronic kidney disease secondary to ATN secondary to cardiorenal syndrome Acute anemia Hypertension Hyperlipidemia, treated, cholesterol 150, LDL 72.8 Hypothyroid, TSH 1.73 Diabetes mellitus, hemoglobin A1c 7.1% CVA Hepatitis as a child CKD Previous tobacco dependence with recent cessation Severe COPD, preoperative FEV1 27% of predicted Previous methamphetamine use with recent cessation Family history of coronary artery disease with sister having multiple stents Postoperative acute blood loss anemia, expected Postoperative paroxysmal atrial fibrillation, status post ligation of the left atrial appendage, currently sinus Plan: Continue to maximize medical therapy with aspirin, statin, Plavix, beta-alex. Will increase beta-alex as tolerated. Continue hydralazine for afterload reduction, increased again yesterday Continue Primacor, decrease dose to 0.1 mcg/kg/min Continue oral amiodarone for A-fib prophylaxis, weekly taper, decreased to 200 mg BID yesterday Encourage incentive spirometry use 10 times every hour while awake. Bronchodilators per pulmonology Increase activity, ambulate as tolerated. PT/OT/cardiac rehab consulted Will monitor daily labs and x-rays. Electrolyte replacement per protocol. Currently on IV bumex BID, zaroxlyn GI/DVT prophylaxis DC cordis Decision regarding dialysis per nephrology Pain control per current medication regimen. Avoid Toradol due to kidney failure Insulin management per internal medicine Continue pleural chest tubes for another 24 hours due to high output, placed to water seal Discontinue Saldaña catheter, may bladder scan and straight cath for >300 mL residual Continue to record strict accurate intake and output Daily weights More recommendations to follow
--- NOTE | 2024-03-06 09:07 | P.PN ---
Subjective Progress Note Date: 03/06/24 The patient is a 58-year-old female with past medical history of multivessel coronary artery disease and ischemic cardiomyopathy, who is currently admitted after undergoing CABG x 4. Hospital course has been complicated by acute kidney injury. Patient is on inotropes and is being followed by nephrology for possible dialysis. Repeat limited echocardiogram shows drop in LV function to 15% with interventricular dyssynchrony. Patient was interviewed and examined sitting up in the recliner chair. No cu rrent chest discomfort. She reports generalized pain. She does get dizzy and lightheaded when standing and ambulating to the chair GENERAL: Ill-appearing, well-nourished and in no acute distress. NECK: Supple without JVD or thyromegaly. LUNGS: Breath sounds diminished to auscultation bilaterally. Respiration equal and unlabored. Bibasilar crackles. HEART: Regular rate and rhythm without murmurs, rubs or gallops. S1 and S2 heard. EXTREMITIES: Normal range of motion, +1 bilateral lower extremity edema. No clubbing or cyanosis. Peripheral pulses intact and strong. TELEMETRY: Sinus rhythm overnight. Heart rate in the 50s to 60s LABS: WBC 5.9, hemoglobin 8.9, hematocrit 29.7, platelet 339, sodium 132, potassium 4.6, BUN 83, creatinine 4.59 IMPRESSION: Triple-vessel coronary artery disease Status post CABG x 4 Ischemic cardiomyopathy, EF 15% Mitral regurgitation Postoperative atrial fibrillation, remains in sinus Acute on chronic kidney disease, secondary to cardiorenal syndrome Hypertension Diabetes COPD PLAN: CV surgery to wean Primacor and taper amiodarone Suggest maximizing beta-alex with further drop in ejection fraction Continue supportive treatment including aggressive pulmonary hygiene Further recommendations to be based upon clinical course I am dictating on behalf of Dr Jt Saunders's history/physical and assessment/plan. Objective - Vital Signs Vital signs: Vital Signs Temp 97.9 F 03/06/24 08:00 Pulse 63 03/06/24 08:00 Resp 17 03/06/24 08:00 BP 101/52 03/06/24 08:00 Pulse Ox 94 L 03/06/24 08:00 FiO2 40 02/26/24 16:39 Intake & Output 03/05/24 03/06/24 03/06/24 18:59 06:59 18:59 Intake Total 735.39 739.084 33 Output Total 544 1085 160 Balance 191.39 -345.916 -127 Weight 89.7 kg Intake: IV 441 156 33 .9NS Cardiac Output 60 .9NS Pressure Bag 51 36 3 0.9 sodium chloride 330 120 30 Intake, IV Titration 94.39 93.084 Amount Milrinone-D5w Pmx 20 mg 94.39 93.084 In Dextrose/Water 1 100ml .bag @ 0.1 MCG/KG/MIN 2. 397 mls/hr IV .Q24H [facility] Rx#:[id number] Oral 200 Tube Feeding 490 Output: Chest Tube Drainage 350 610 80 Left Pleural Chest Tube 200 330 60 Right Pleural Chest Tube 150 280 20 Urine 194 475 80 Other: Voiding Method Indwelling Catheter Indwelling Catheter Indwelling Catheter ABP, PAP, CO, CI - Last Documented Arterial Blood Pressure 139/47 Pulmonary Artery Pressure 36/20 Cardiac Output 4.2 Cardiac Index 2.3 - Labs CBC & Chem 7: 03/06/24 05:51 03/06/24 05:51 Labs: Abnormal Lab Results - Last 24 Hours (Table) 03/05/24 03/05/24 03/05/24 Range/Units 12:28 16:41 20:06 RBC (3.80-5.40) m/uL Hgb (11.4-16.0) gm/dL Hct (34.0-46.0) % MCHC (31.0-37.0) g/dL Sodium (137-145) mmol/L Carbon Dioxide (22-30) mmol/L BUN (7-17) mg/dL Creatinine (0.52-1.04) mg/dL Glucose (74-99) mg/dL POC Glucose (mg/dL) 179 H 264 H 312 H (70-110) mg/dL Calcium (8.4-10.2) mg/dL 03/06/24 03/06/24 Range/Units 05:51 05:51 RBC 3.00 L (3.80-5.40) m/uL Hgb 8.9 L (11.4-16.0) gm/dL Hct 29.7 L (34.0-46.0) % MCHC 29.9 L (31.0-37.0) g/dL Sodium 132 L (137-145) mmol/L Carbon Dioxide 19 L (22-30) mmol/L BUN 83 H (7-17) mg/dL Creatinine 4.59 H (0.52-1.04) mg/dL Glucose 61 L (74-99) mg/dL POC Glucose (mg/dL) (70-110) mg/dL Calcium 8.3 L (8.4-10.2) mg/dL
--- NOTE | 2024-03-06 10:18 | P.PN ---
Subjective Progress Note Date: 03/06/24 This is a pleasant 58 years old female with past medical history of multiple medical problems as below She has been incarcerated for 52 days, there is officer at bedside. Patient presents because of shortness of breath and exertional dyspnea has for the last 2 days, she states she hears herself wheezing when she lies down. Currently she is breathing quietly. She is complaining for mild chest pain on the left side, nonradiating nonspecific, feels much better now and very mild. She has occasional cough but no phlegm. Also she is complaining from upset stomach but no diarrhea or vomiting She complains from decreased urination but no dysuria or urgency. She has mild headache feels generally weak but no dizziness or blurry vision. She used to smoke half pack per day before she got incarcerated No alcohol or illicit drugs. She follow-up with her ferris wheel attendant Dr. Donal Herrera and histology assistant Dr. Babb who examined her about 2 months ago where she has some mild ulcer In the bottom of her right total This morning patient has low-grade fever 100.2 She is also mildly tachypneic around 22 She is saturating 93% on 2 L oxygen via nasal cannula Labs reviewed showing hemoglobin of 7.7, rest of CBC is unremarkable BMP liver enzymes not elevated. INR 0.9. Lactic 0.9 proBNP is elevated 25 100 EKG showing sinus rhythm at [address]-T changes, no left bundle branch block 02/17/2024 --Patient is seen and evaluated in room at bedside; remains on Lasix drip, remains in negative fluid balance - patient underwent cardiac catheterization which revealed severe triple-vessel coronary artery disease and now she is being evaluated for possible myocardial revascularization. Patient remains on oxygen at 2 L/min and her O2 sats is 97%, her PFT showed severe obstructive lung disease, however not severe enough to not consider myocardial revascularization if the patient is cleared by other consultants including nephrology and cardiology. Patient has been a smoker over the years, she had at least a [id number] smoking history. Remind you patient had a PFT with chest x-ray still showing evidence of pulmonary edema which will definitely compromise her PFT will likely reflect more restriction than obstructive lung disease. WBC count today is 4.9 hemoglobin 7.7 electrolytes are normal BUN is 85 creatinine 3.59 02/18/2024 Patient is seen and evaluated in room at bedside; sitting up in bed; ports stabl e breathing - patient underwent AFRICA which revealed aortic valve tricuspid and functioning normally. Mitral valve structurally normal with mild central secondary mitral regurgitation. Pulmonary vein flow has systolic dominance. Tricuspid valve appears to be normal with mild tricuspid regurgitation. Intra-atrial septum is intact with no evidence of PFO. Left atrial appendage free of clot. LV EF 35% with global hypokinesis. -- Patient is followed by cardiothoracic surgery and also nephrology. Nephrology not recommending any indication or need for hemodialysis. Patient remains on Lasix drip per nephrology. Patient has a negative fluid balance of 1322. Repeat blood work reveals hemoglobin is 7.9. BUN 82 creatinine 3.39. Mild elevation in liver function test. -Plan for surgery once clinically optimized 02/19/2024 Patient looks more awake than admission, sitting up in bed. Care Home officers at bedside Mentation at baseline. She talks freely. Denies chest pain or dyspnea at rest On presentation patient was found acute CHF and non-STEMI, workup showing triple-vessel coronary artery disease and patient will require bypass procedure with cardiothoracic surgery team on the case once medically optimized. Patient currently with fluid overload on Lasix drip, on admission it was 5 mg/h, currently increased to 10 mg/h. She is making around 1 L of urine output by yesterday. Saldaña catheter in place. She is also on aspirin 81 mg Hemoglobin 8.5, creatinine 3.3 compared to 2.7 on admission with baseline 0.9- 1.2. Liver enzymes mildly elevated since admission. 02/20/2024 [facility] N[facility]. Workup showing severe triple-vessel coronary artery disease currently being evaluated by cardiothoracic surgery team for possible cardiac bypass procedure. However she needs optimization and she is currently kept on IV Lasix 10 mg, creatinine went up 3.3 today. Business Operations Director recommended to continue with Lasix drip still tomorrow Patient diabetic, she is on Levemir 8 units twice daily, she is developing episodes of hypoglycemia we will going to lower the dose to 6 units twice daily She is also on aspirin 325 mg 02/21/2024 Patient continues to improve today, she is more energetic, less dyspneic Lasix drip switched to IV Lasix 60 mg twice daily Cardiothoracic surgery team with plan for valve replacement surgery on this coming Sunday 02/25 Sugars better controlled with no hyperglycemia on Levemir 6 units twice daily 02/22/2024 Patient breathing is stable, denies chest pain No new complaint Will go check breathing tomorrow Plan for cardiac surgery on Monday02/23/2024 Patient awake alert She feels more weak today Creatinine is up Plan for cardiac surgery early next week 02/24/2024 Patient feels weak No chest pain or dyspnea Patient anticipates surgery on Monday inshore undersea warfare officer at bedside 02/25/2024 Patient awake alert looks comfortable Generally weak Creatinine stable around 3.2 Plan for bypass cardiac surgery tomorrow, patient is agreeable to the current plan 02/26/2024 Patient is seen in follow-up today [facility] Patient currently n.p.o. and preop. Will await surgical report. 02/27/2024 Patient is seen in follow-up this morning currently in the ICU with multiple medical consultations following. Patient is status post bypass yesterday currently maintained on 4 L via nasal cannula. Patient is reporting some shortness of breath although biggest concern is severe nausea. Patient is maintained on Reglan and Zofran as needed. Will make Reglan scheduled. Patient did have mediastinal chest tube removed and was taken off balloon pump most recently this morning. Patient continues on insulin drip and will continue monitoring sugars closely continue with current regimen and will transition off insulin drip once patient nausea is improved and tolerating diet. Patient is afebrile at this time. 02/28/2024 Patient is seen in follow-up today currently sitting up in the chair tolerating ice chips. Patient reports continues with intermittent nausea although significantly improved. Patient remains on 2 L and has been working on incentive spirometer. Encouraged at least 10 times every hour while awake. Patient was on insulin drip with history of diabetes and being transition to sliding scale. Patient was given a dose of long-acting and will make twice daily and recommend monitoring Accu-Cheks before meals and at bedtime and 2 AM for tight glycemic control. Kidney functions are stable with nephrology following. 02/29/2024 Patient is seen in follow-up continues in the ICU with multiple medical consultations following. Patient is currently hypotensive medications being adjusted and patient is receiving albumin. Patient reports to feeling exhausted and not sleeping very well. Patient's blood sugars being adjusted and using sliding scale. Continue with Levemir twice daily and will adjust accordingly. Blood sugars have been on the lower side and not requiring long-acting. Patient not eating much and continues with some nausea. 03/01/2024 Patient is seen in follow-up in the ICU currently sitting up in the chair. Patient remains on dopamine and also has been started on milrinone. Patient continues with some nausea although able to tolerate a little more intake and blood sugars have been elevated during the day will increase long-acting and continue with sliding scale and Accu-Cheks before meals and at bedtime. Patient continues with chest tubes as well as swans catheter at this time. Patient has been encouraged to continue using incentive spirometer at least 10 times every hour while awake. Recommend PT/OT therapy daily as patient is significantly weak and has had prolonged hospitalization. 03/04/2024 Patient is seen this morning and continues to be in the ICU with multiple medical consultations following. Patient continues with indwelling Saldaña catheter monitoring output closely as kidney functions remain elevated. Nephrology is following and discussing possible need for renal replacement therapy. Cardiology following and Imdur is being added. Patient continues with chest tubes and continued volume overload noted on imaging. Patient continues on oxygen via nasal and appears pale, will order CBC. Transfuse if 7 or less. 03/05/2024 Patient is seen in follow-up today continues in the ICU with medical consultations following. Patient is receiving a PICC line and also maintained on milrinone. Patient continues on IV Bumex as well with nephrology following having worsening kidney functions with a creatinine of 4.68 and a BUN of 78. Sodium on the lower side at 131. Magnesium within normal limits at 1.9. Blood sugars have been more elevated and will monitor closely with Accu-Cheks before meals and at bedtime as well as 2 AM and adjust insulins accordingly. Patient continues on 1 to 2 L and has been attempting to remove oxygen maintaining oxygen saturations of 90%. Encouraged to increase activity as tolerated and continued incentive spirometer use. Review of systems: Constitutional: No reports of fatigue today, no fever, or chills Cardiovascular: reports of chest wall pain Respiratory: reports of shortness of breath with exertion, occasional cough GI: reports of intermittent nausea and improving, no vomiting, or diarrhea : No reports of dysuria or retention Neurovascular: reports of generalized weakness All medications have been reviewed Physical exam: GENERAL: The patient is alert and oriented x3, pale, currently sitting up in the chair well developed, thin built. Generally weak, elderly appearing HEENT: Pupils are round and equally reacting to light. EOMI. No scleral icterus. No conjunctival pallor. Normocephalic, atraumatic. No pharyngeal erythema. No thyromegaly. CARDIOVASCULAR: S1 and S2 muffled, heart hugger noted PULMONARY: Diminished breath sounds bilaterally, faint crackles. Tachypnea ABDOMEN: Soft, nontender, nondistended, normoactive bowel sounds. No palpable organomegaly. Saldaña catheter in place MUSCULOSKELETAL: No joint swelling or deformity. EXTREMITIES: No cyanosis, clubbing, 1+ bilateral pitting leg edema. NEUROLOGICAL: Gross neurological examination did not reveal any focal deficits. Diffusely weak SKIN: No rashes. no petechiae. Pale Assessment: Acute systolic CHF exacerbation, ejection fraction: 20 to 25% non-STEMI, ekg New left bundle branch block, secondary to triple-vessel coronary artery disease status post CABG Mild hypoxic respiratory failure, improving Acute kidney injury on chronic kidney disease, nonoliguric Acute on chronic anemia of chronic disease Acute urinary tract infection, urine culture showing skin or genital kwesi. Resolved Diabetes mellitus, type II, uncontrolled with hyper and hypoglycemia Continued ongoing nicotine dependence Chronic ulcers of the right big toe Chronic kidney disease stage II with acute kidney injury GI prophylaxis DVT prophylaxis Full code Plan: Cardiothoracic surgery team following as attending and patient is status post bypass procedure and off balloon pump . Mediastinal chest tube removed, daily chest x-ray ordered and showing bilateral pneumothoraces, vascular congestion patient is being transition to IV Bumex twice daily Continue Accu-Cheks before meals and at bedtime and continue to encourage oral intake, adjust insulins accordingly as patient's blood sugars have been on the lower side. Not much of an oral intake. Continue with anti-nausea medications as needed and small frequent meals, continue with supplements between meals Nephrology following and kidney functions continue to be elevated and being closely monitored. Patient continues with indwelling Saldaña catheter for strict intake and output monitoring. Discussing possible need for renal replacement Patient is continued on milrinone, medications being adjusted with cardiothoracic surgery along with with cardiology Incentive spirometer at the bedside encouraged the patient to use at least 10 times every hour while awake Follow-up on repeat labs and replace electrolytes per protocol. Transfuse if 7 or less on hemoglobin We will continue to follow with cardiothoracic surgery during hospitalization. Due to multiple complex medical issues, overall prognosis is guarded The impression and plan of care has been dictated by Mandy Granda, Nurse Practitioner as directed. Dr. Andrzej MD I have performed a history and examination and MDM of this patient, discussed the same with the dictator, and agree with the dictator's assessment and plan as written ,documented as a scribe. Based on total visit time, I have performed more than 50% of the visit. Objective - Vital Signs Vital signs: Vital Signs Temp 97.9 F 03/06/24 08:00 Pulse 63 03/06/24 08:00 Resp 17 03/06/24 08:00 BP 101/52 03/06/24 08:00 Pulse Ox 94 L 03/06/24 08:00 FiO2 40 02/26/24 16:39 Intake & Output 03/05/24 03/06/24 03/06/24 18:59 06:59 18:59 Intake Total 735.39 739.084 33 Output Total 544 1085 160 Balance 191.39 -345.916 -127 Weight 89.7 kg Intake: IV 441 156 33 .9NS Cardiac Output 60 .9NS Pressure Bag 51 36 3 0.9 sodium chloride 330 120 30 Intake, IV Titration 94.39 93.084 Amount Milrinone-D5w Pmx 20 mg 94.39 93.084 In Dextrose/Water 1 100ml .bag @ 0.1 MCG/KG/MIN 2. 397 mls/hr IV .Q24H [facility] Rx#:[id number] Oral 200 Tube Feeding 490 Output: Chest Tube Drainage 350 610 80 Left Pleural Chest Tube 200 330 60 Right Pleural Chest Tube 150 280 20 Urine 194 475 80 Other: Voiding Method Indwelling Catheter Indwelling Catheter Indwelling Catheter ABP, PAP, CO, CI - Last Documented Arterial Blood Pressure 139/47 Pulmonary Artery Pressure 36/20 Cardiac Output 4.2 Cardiac Index 2.3 - Labs CBC & Chem 7: 03/06/24 05:51 03/06/24 05:51 Labs: Abnormal Lab Results - Last 24 Hours (Table) 03/05/24 03/05/24 03/05/24 Range/Units 12:28 16:41 20:06 RBC (3.80-5.40) m/uL Hgb (11.4-16.0) gm/dL Hct (34.0-46.0) % MCHC (31.0-37.0) g/dL Sodium (137-145) mmol/L Carbon Dioxide (22-30) mmol/L BUN (7-17) mg/dL Creatinine (0.52-1.04) mg/dL Glucose (74-99) mg/dL POC Glucose (mg/dL) 179 H 264 H 312 H (70-110) mg/dL Calcium (8.4-10.2) mg/dL 03/06/24 03/06/24 Range/Units 05:51 05:51 RBC 3.00 L (3.80-5.40) m/uL Hgb 8.9 L (11.4-16.0) gm/dL Hct 29.7 L (34.0-46.0) % MCHC 29.9 L (31.0-37.0) g/dL Sodium 132 L (137-145) mmol/L Carbon Dioxide 19 L (22-30) mmol/L BUN 83 H (7-17) mg/dL Creatinine 4.59 H (0.52-1.04) mg/dL Glucose 61 L (74-99) mg/dL POC Glucose (mg/dL) (70-110) mg/dL Calcium 8.3 L (8.4-10.2) mg/dL
[2024-03-06 11:52] LABS: Glucose,Whole Blood 154 mg/dL (70-110)
--- NOTE | 2024-03-06 12:39 | P.PN ---
Subjective Progress Note Date: 03/06/24 Principal diagnosis: Acute hypoxic respiratory failure secondary to acute systolic congestive heart failure and ischemic cardiomyopathy Patient is a 58-year-old white female with past medical history significant for COPD, chronic ongoing tobacco dependence, CVA/TIA, diabetes mellitus, hyperlipidemia, hypertension, hypothyroidism, fibromyalgia, GERD, among other things. Patient [facility] on [facility]/2024 from [facility] with chief complaint of increased lower extremity swelling. She states that she first noted the swelling back in December,. It is progressively worsened, she states she has gained approximately 20 pounds over the last 2 months. Approximately 10 days ago she was awoken at night with substernal chest pain. Nonradiating. With associated shortness of breath and sweating. Lasted up to 15 minutes. She is also had a nonproductive cough. She was noted to be febrile this admission. She is empirically covered on antibiotics. On arrival to the emergency room, she was noted to have elevated troponins of 1.29, 1.76, and 2.2. EKG showed normal sinus rhythm with left bundle branch block, without any other acute ischemic changes. No previous EKG for comparison. She was started on heparin infusion per protocol. She also was on a Nitropaste. Echocardiogram showed a severely impaired left ventricular ejection fraction of 20 to 25%, and moderate to severe mitral regurgitation. Today, she was started on a Lasix infusion at 5 mg/h. Heparin infusion was stopped as the patient is anemic. Patient denies any acute blood loss. No vaginal bleeding. No juan blood in stool. No melena. No nausea or vomiting or hematic emesis. Last colonoscopy was reportedly around 10 years ago. She is currently lying in bed, on 2 L/min nasal cannula. Chest x-ray on admission shows diffuse interstitial edema as well as bilateral consolidation and small effusions. Findings consistent with congestive heart failure. NT proBNP was elevated 25,000. Patient not making much urine despite Lasix infusion. Patient did have 1 episode of fever during her admission with a Tmax of 100.2 F. She was empirically she was empirically placed on Rocephin. Negative for influenza, RSV, COVID. Most recent BMP from today: Sodium 130, potassium 5.1, chloride 104, serum bicarb down to 17, BUN 63, creatinine worsening and 3.34, glucose 229. LFTs mildly elevated. Hepatitis panel nonreactive. Overall, hemodynamically stable. On 02/08/2024, seen the patient for a follow-up. The patient is currently on 3 L of oxygen by nasal cannula with a pulse ox of 94%. She should be able to wean down. She is on Lasix drip at 5 mg an hour and the patient is producing adequ ate amount of urine output. Her fluid balance is negative. As mentioned, the patient is post non-ST segment ovation myocardial infarction the patient is being seen by cardiology. The patient has severe cardiomyopathy with impaired left ventricular ejection fraction. Her blood work from today shows a BUN of 66 with a creatinine of 3.41 and this is consistent with an acute on chronic kidney injury. Sodium levels at 129, potassium is at 4.4 with a WBC count of 6.3 and a hemoglobin of 7.4. The patient is on IV Rocephin as an empiric antibiotic coverage. She is currently afebrile. The patient is being seen by cardiology. The patient will be kept on IV Lasix. Not a candidate for any invasive cardiac workup due to her acute on top of chronic kidney injury at this point in time. Her comorbidities are multiple. Unsure if she does have underlying coronary artery disease. Nevertheless, she has previous history of CVA, diabetes mellitus type 2, hypothyroidism and CHF. She was in [facility] for being arrested due to possession of amphetamines. Vasculitis workup was negative including a n egative EDSON and a negative P and C ANCA. Hepatitis profile was also negative. On 02/10/2024, the patient is being seen for a follow-up. No new complaints. No significant shortness of breath at rest. Remains on Lasix drip. Producing adequate amount of urine output. Blood work from today was noticed that the patient has a white cell count of 6 with a hemoglobin of 7.2 and a PET scan at 360. BUN 69 with a creatinine of 3.4 and a sodium levels at 129. The patient is being seen by cardiology and nephrology addition. She remains on Lasix drip which will be increased up to 10 mg an hour. Not a candidate for further cardiac catheterization based on underlying renal dysfunction. 02/11/2024, the patient is being seen for a follow-up. No new complaints. Monitor for improvement in her condition. She remains on 2 L of oxygen by nasal cannula. Fluid balance is -90 cc over the past 24 hours. Suboptimal response to diuretics and the patient remains on Lasix at 10 mg an hour. BUN 71 with a creatinine of 3.7, slightly worse compared to yesterday. Sodium is at 131. The patient denies having any chest pain. No significant hypotension. Remains on aspirin. Remains on metoprolol 25 mg p.o. twice a day. Cardiology on the case. She has significant cardiomyopathy. She is post acute non-STEMI. Not a candidate for cardiac catheterization due to renal impairment. The patient is seen today February 12, 2024 in follow-up on the selective care unit. She is currently sitting up in bed. Awake and alert in no acute distress. She is maintaining O2 saturation in the 90s on 3 L nasal cannula. She is afebrile. Hemodynamically stable. Today's chest x-ray reviewed reveals diffuse bilateral infiltrates with small effusion or early congestive heart failure. Hemoglobin 6.7. 1 unit of packed blood cells have been ordered. Platelets 362. White count 6.1. Sodium 131. Potassium 4.2. Bicarb 21. BUN 80. Creatinine 3.89. Glucose 286. She remains on. Antibiotics in the form of ceftriaxone. Remains on a Lasix drip at 5 mg an hour. Currently in a -178 mL balance. The patient is seen today February 13, 2024 in follow-up on the selective care unit. She is awake and alert in no acute distress. Sitting up in bed. Blood and urine cultures revealed no growth. White count 6.2. Hemoglobin 7.4. Platelets 01/05/1978. Sodium 133. Potassium 3.9. Bicarb 21. BUN 83. Creatinine 3.60. Glucose 154. She remains on a Lasix drip currently at 5 mg/h. She remains on a heparin drip. Receiving sodium bicarb tablets. Continued on bronchodilators. Continued on antibiotics in the form of ceftriaxone. She is currently in a negative balance. Voided 1 L today. The patient is seen today February 14, 2024 in follow-up on the selective care unit. She is currently sitting up in bed. Awake and alert in no acute distress. She is maintaining good O2 saturations in the 90s on 3 L/min per nasal cannula. She is afebrile. Hemodynamically stable. Follow-up chest x-ray continues to show diffuse bilateral infiltrate with small effusions. She is status post 1 unit of packed red blood cells this admission. Last hemoglobin 7.7. Sodium 135. Potassium 4.6. Bicarb 20. BUN 87. Creatinine 3.55. Glucose 358. She is continued on bronchodilators. Antibiotics in form of ceftriaxone. She remains on a Lasix drip at 10 mg/h. Receiving sodium bicarb tablets. Currently -688 mL balance. Nephrology is following. The patient is seen today February 15, 2024 in follow-up on the selective care unit. She is currently sitting up in bed awake and alert in no acute distress. She is maintaining O2 saturations in the mid 90s on 2 L/min per nasal cannula. She is afebrile. Hemodynamically stable. White count 6.8. Hemoglobin 8.6. Platelets 438. Sodium 135. Potassium 4.0. Bicarb 21. BUN 84. Creatinine 3.41. Glucose 171. She remains on a Lasix drip at 10 mg/h. Continued on a heparin drip. Plan to -1 L balance. Stress testing today reveals a large area of fixed defect involving all segments of the myocardium suggestive of remote ischemia. Could not exclude a tiny area of stress-induced reversibility within the apex. Reduced wall motion activity with ejection fraction of only 21%. Patient was seen and examined today on 02/16/2024 patient is feeling better today, continues to diurese with a Lasix drip, remains in negative fluid balance, patient underwent cardiac catheterization today and she was found to have severe triple-vessel coronary artery disease, now she is being evaluated by surgery, patient does have severe LV dysfunction, she is definitely high surgical risk, but no absolute contraindication to surgery.Basic metabolic profile is normal BUN is 85 creatinine 3.58 however the patient may require hemodialysis, and she will need nephrology clearance she will also need a bedside spirometry/FEV1 for preoperative pulmonary clearance in the meantime we will continue diuretics/Lasix drip Patient was reevaluated today on 02/17/2024, remains on Lasix drip, remains in negative fluid balance, patient is very well aware that she had abnormal cardiac catheterization and now she is being evaluated for possible myocardial revascularization. Patient remains on oxygen at 2 L/min and her O2 sats is 97%, her PFT showed severe obstructive lung disease, however not severe enough to not consider myocardial revascularization if the patient is cleared by other con sultants including nephrology and cardiology. Patient has been a smoker over the years, she had at least a [id number] smoking history. Remind you patient had a PFT with chest x-ray still showing evidence of pulmonary edema which will definitely compromise her PFT will likely reflect more restriction than obstructive lung disease. WBC count today is 4.9 hemoglobin 7.7 electrolytes are normal BUN is 85 creatinine 3.59 Patient was reevaluated today on 02/18/2024, remains on Lasix drip, 10 mg/h, remains in constant negative fluid balance, chest x-ray today is definitely showing improvement but nonetheless her pulmonary edema is not completely resolved. Patient was being considered for CABG however the plan is presently on hold because of her overall pulmonary status and possibly the patient could benefit from more optimization of her congestive heart failure. In the meantime she seems to be doing better with the Lasix drip. Patient is also maintained on bronchodilators for her underlying COPD. Patient was seen today on 03/05/2024, patient is now postoperative day #8Off-pump CABG x 4 with sequential left internal mammary artery to left anterior descending coronary artery and diagonal coronary artery, reverse saphenous vein graft to the posterior descending coronary artery and second obtuse marginal coronary artery, closure of the left atrial appendage with 35mm AtriCure clip, placement of percutaneous right femoral intra-aortic balloon pump, transesophageal echocardiogram performed by anesthesia. And is on room air, sitting at the bedside recliner, is in the ICU, not in any distress. Have fluid buildup and bipedal edema. Renal functioning is a bit worse, but the patient is making urine, remains on Primacor at 0.25 mcg/kg/min, intermittently on diuretics, no plans for hemodialysis at this point yet. To have both pleural chest tubes in place, giving over 1000 cc on her incentive spirometry, patient is ambulating with assistance. Chest x-ray minimal bilateral biapical pneumothoraces, and it it showed mild congestive heart failure. WBC is 5.8 hemoglobin 8.5 electrolytes are normal BUN is 78 creatinine 4.68 he is on oral amiodarone. He is also on aspirin and statins. Well as Plavix. For diuretics, patient is receiving Bumex 2 mg IV push every 12 hours for patient is also receiving bicarb 650 mg p.o. twice daily. Remains on GI and DVT prophylaxis. Patient was reevaluated today on 03/06/2024, she is now postoperative day #9. Patient remains in the ICU, patient is on room air, not in any distress. Continues to have bilateral pleural chest tubes, draining mostly clear fluid. And amount of drainage has been significant over the last 24 hours. Hence no plans to remove the chest tubes at this point in time. The left-sided chest tube drained 500 cc and the right pleural chest tube drained 450 cc overnight. Patient is comfortable, achieving 1000 mL on hide incentive spirometry. She does not seem to be in any distress, remains on milrinone at 0.1 mcg/kg/min. Chest x-ray is showing significant improvement in her pulmonary edema. WBC count is 5.9 hemoglobin 8.9 basic metabolic profile is normal BUN is 83 creatinine 4.59. Continues to have bipedal edema in spite of aggressive and significant diuresis. Objective - Vital Signs Vital signs: Vital Signs Temp 97.7 F 03/06/24 12:00 Pulse 62 03/06/24 12:00 Resp 13 03/06/24 12:00 BP 88/48 03/06/24 12:00 Pulse Ox 96 03/06/24 12:00 FiO2 40 02/26/24 16:39 Intake & Output 03/05/24 03/06/24 03/06/24 18:59 06:59 18:59 Intake Total 735.39 739.084 116 Output Total 544 1085 220 Balance 191.39 -345.916 -104 Weight 89.7 kg Intake: IV 441 156 116 .9NS Cardiac Output 60 .9NS Pressure Bag 51 36 6 0.9 sodium chloride 330 120 110 Intake, IV Titration 94.39 93.084 Amount Milrinone-D5w Pmx 20 mg 94.39 93.084 In Dextrose/Water 1 100ml .bag @ 0.1 MCG/KG/MIN 2. 397 mls/hr IV .Q24H [facility] Rx#:[id number] Oral 200 Tube Feeding 490 Output: Chest Tube Drainage 350 610 90 Left Pleural Chest Tube 200 330 70 Right Pleural Chest Tube 150 280 20 Urine 194 475 130 Other: Voiding Method Indwelling Catheter Indwelling Catheter Indwelling Catheter ABP, PAP, CO, CI - Last Documented Arterial Blood Pressure 139/47 Pulmonary Artery Pressure 36/20 Cardiac Output 4.2 Cardiac Index 2.3 - Exam GENERAL EXAM: Alert, 58-year-old female, in bed, on room air, not in distress for HEAD: Normocephalic and atraumatic EYES: Normal reaction of pupils, equal size. NOSE: Clear with pink turbinates. THROAT: No erythema or exudates. NECK: No masses, no JVD. CHEST: No chest wall deformity. LUNGS: Clear bilaterally, bilateral chest tubes are noted. CVS: S1 and S2 normal with no audible murmur, regular rhythm. No extra heart sounds ABDOMEN: No hepatosplenomegaly, active bowel sounds, no guarding or rigidity. SKIN: No rashes CENTRAL NERVOUS SYSTEM: Alert oriented x 3 no gross focal deficit EXTREMITIES: 1 + bipedal edema - Labs CBC & Chem 7: 03/06/24 05:51 03/06/24 05:51 Labs: Abnormal Lab Results - Last 24 Hours (Table) 03/05/24 03/05/24 03/06/24 Range/Units 16:41 20:06 05:51 RBC (3.80-5.40) m/uL Hgb (11.4-16.0) gm/dL Hct (34.0-46.0) % MCHC (31.0-37.0) g/dL Sodium 132 L (137-145) mmol/L Carbon Dioxide 19 L (22-30) mmol/L BUN 83 H (7-17) mg/dL Creatinine 4.59 H (0.52-1.04) mg/dL Glucose 61 L (74-99) mg/dL POC Glucose (mg/dL) 264 H 312 H (70-110) mg/dL Calcium 8.3 L (8.4-10.2) mg/dL 03/06/24 03/06/24 Range/Units 05:51 11:50 RBC 3.00 L (3.80-5.40) m/uL Hgb 8.9 L (11.4-16.0) gm/dL Hct 29.7 L (34.0-46.0) % MCHC 29.9 L (31.0-37.0) g/dL Sodium (137-145) mmol/L Carbon Dioxide (22-30) mmol/L BUN (7-17) mg/dL Creatinine (0.52-1.04) mg/dL Glucose (74-99) mg/dL POC Glucose (mg/dL) 154 H (70-110) mg/dL Calcium (8.4-10.2) mg/dL Assessment and Plan Assessment: Impression: Severe triple-vessel coronary artery disease based on cardiac catheterization 02/16/2024 Post CABG postoperative day #9 patient had 4 vessels off-pump CABG. Severe ischemic cardiomyopathy and LV dysfunction repeat echocardiogram continues to show LV dysfunction with ejection fraction 15 to 20%. Severe mitral valve regurgitation, on trans thoracic echocardiogram, but she had mild mitral regurgitation on FARICA. Acute kidney injury, likely cardiorenal, worsening creatinine, being followed by nephrology. No plans for dialysis at this point Metabolic non-anion gap acidosis, secondary to above Chronic obstructive pulmonary disease, stable Diabetes mellitus type 1 History of hyperlipidemia History of hypertension History of CVA/TIA History of hypothyroidism History of fibromyalgia History of GERD Mildly elevated LFTs, hepatitis panel nonreactive Former tobacco smoker, 1/2 pack/day or approximately 15-year pack history Postoperative paroxysmal atrial fibrillation, expected. Severe underlying COPD Recommendation: Continue maximal medical therapy including aspirin statin Plavix and beta- blockers Titrate Primacor, dose is being titrated. Continue to monitor output from pleural chest tubes Continue oral amiodarone Continue GI prophylaxis and DVT prophylaxis Continue to monitor in the ICU Continue incentive spirometry Continue ambulation Continue daily weights continue strict I's and Continue monitoring of renal profile Will continue to follow Time with Patient: Less than 30
[2024-03-06 16:24] LABS: Glucose,Whole Blood 236 mg/dL (70-110)
[2024-03-06 19:58] LABS: Glucose,Whole Blood 298 mg/dL (70-110)
[2024-03-06] MEDS: metOLazone 5 MG TAB PO SCH (20:29)
--- NOTE | 2024-03-06 20:32 | P.PN ---
Subjective patient is seen for follow-up for acute kidney injury. Patient remains on Primacor. Urine output about 50-30 mL an hour. Currently maintained on IV Bumex every 12 hours. serum creatinine at 4.59 mg/dL today. No complaints of shortness of breath. Objective - Vital Signs Vital signs: Vital Signs Temp 98.4 F 03/06/24 16:00 Pulse 65 03/06/24 19:00 Resp 13 03/06/24 19:00 BP 122/86 03/06/24 19:00 Pulse Ox 95 03/06/24 19:00 FiO2 40 02/26/24 16:39 Intake & Output 03/06/24 03/06/24 03/07/24 06:59 18:59 06:59 Intake Total 739.084 156 510 Output Total 1085 728 0 Balance -345.916 -572 510 Weight 89.7 kg Intake: IV 156 156 10 .9NS Pressure Bag 36 6 0.9 sodium chloride 120 150 10 Intake, IV Titration 93.084 Amount Milrinone-D5w Pmx 20 mg 93.084 In Dextrose/Water 1 100ml .bag @ 0.1 MCG/KG/MIN 2. 397 mls/hr IV .Q24H [facility] Rx#:[id number] Oral 500 Tube Feeding 490 Output: Chest Tube Drainage 610 390 Left Pleural Chest Tube 330 230 Right Pleural Chest Tube 280 160 Urine 475 130 0 Post Void Residual 208 Other: Voiding Method Indwelling Catheter Indwelling Catheter ABP, PAP, CO, CI - Last Documented Arterial Blood Pressure 139/47 Pulmonary Artery Pressure 36/20 Cardiac Output 4.2 Cardiac Index 2.3 - Exam patient is awake, comfortable, no acute distress Alert oriented 3 Examination of the heart S1 and S2 Examination of the lungs bilateral breath sounds are heard, decreased breath sounds at the bases Abdomen is soft nontender Examination of lower extremities shows 2+ edema. 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 exam grossly intact - Labs CBC & Chem 7: 03/06/24 05:51 03/06/24 05:51 Labs: Abnormal Lab Results - Last 24 Hours (Table) 03/06/24 03/06/24 03/06/24 Range/Units 05:51 05:51 11:50 RBC 3.00 L (3.80-5.40) m/uL Hgb 8.9 L (11.4-16.0) gm/dL Hct 29.7 L (34.0-46.0) % MCHC 29.9 L (31.0-37.0) g/dL Sodium 132 L (137-145) mmol/L Carbon Dioxide 19 L (22-30) mmol/L BUN 83 H (7-17) mg/dL Creatinine 4.59 H (0.52-1.04) mg/dL Glucose 61 L (74-99) mg/dL POC Glucose (mg/dL) 154 H (70-110) mg/dL Calcium 8.3 L (8.4-10.2) mg/dL 03/06/24 03/06/24 Range/Units 16:23 19:57 RBC (3.80-5.40) m/uL Hgb (11.4-16.0) gm/dL Hct (34.0-46.0) % MCHC (31.0-37.0) g/dL Sodium (137-145) mmol/L Carbon Dioxide (22-30) mmol/L BUN (7-17) mg/dL Creatinine (0.52-1.04) mg/dL Glucose (74-99) mg/dL POC Glucose (mg/dL) 236 H 298 H (70-110) mg/dL Calcium (8.4-10.2) mg/dL Assessment and Plan Assessment: 1. Acute kidney injury secondary to ATN secondary to cardiorenal syndrome. Creatinine at 4.59 today. Creatinine as low as 0.98 dated March 01, 2022. No hydronephrosis noted on kidney ultrasound. Serologies negative. good urine output. 2. Acute on chronic systolic CHF with ejection fraction of 20 to 25% with moderate to severe mitral regurgitation and mild pulmonary hypertension. 3. Volume overload. 4. Anemia. Iron deficiency noted. Status post IV iron. On Aranesp. GI following. Status post blood transfusion this admission. 5. Metabolic acidosis secondary to acute kidney injury. On oral bicarb. Stab le. 6. Hypervolemic hyponatremia. Also component of hypertonicity from hyperglycemia. Better. 7. Urinary retention status post Saldaña catheter placement. On Flomax. 8. Status post coronary artery bypass surgery x 4 on 02/26/2024 Plan: continue current dose of IV Bumex. Patient will be evaluated daily for need for renal replacement therapy. Increase Zaroxolyn to twice a day.. Repeat labs in a.m.
[2024-03-06] MEDS: BUMETANIDE 0.25 MG/ML 10 ML VIAL IV SCH (21:59)
[2024-03-07 05:53] LABS: Glucose,Whole Blood 136 mg/dL (70-110)
--- NOTE | 2024-03-07 07:18 | P.PN ---
Subjective Progress Note Date: 03/06/24 This is a pleasant 58 years old female with past medical history of multiple medical problems as below She has been incarcerated for 52 days, there is officer at bedside. Patient presents because of shortness of breath and exertional dyspnea has for the last 2 days, she states she hears herself wheezing when she lies down. Currently she is breathing quietly. She is complaining for mild chest pain on the left side, nonradiating nonspecific, feels much better now and very mild. She has occasional cough but no phlegm. Also she is complaining from upset stomach but no diarrhea or vomiting She complains from decreased urination but no dysuria or urgency. She has mild headache feels generally weak but no dizziness or blurry vision. She used to smoke half pack per day before she got incarcerated No alcohol or illicit drugs. She follow-up with her beating machine operator Dr. Donal Herrera and animal caretaker Dr. Babb who examined her about 2 months ago where she has some mild ulcer In the bottom of her right total This morning patient has low-grade fever 100.2 She is also mildly tachypneic around 22 She is saturating 93% on 2 L oxygen via nasal cannula Labs reviewed showing hemoglobin of 7.7, rest of CBC is unremarkable BMP liver enzymes not elevated. INR 0.9. Lactic 0.9 proBNP is elevated 25 100 EKG showing sinus rhythm at [address]-T changes, no left bundle branch block 02/17/2024 --Patient is seen and evaluated in room at bedside; remains on Lasix drip, remains in negative fluid balance - patient underwent cardiac catheterization which revealed severe triple-vessel coronary artery disease and now she is being evaluated for possible myocardial revascularization. Patient remains on oxygen at 2 L/min and her O2 sats is 97%, her PFT showed severe obstructive lung disease, however not severe enough to not consider myocardial revascularization if the patient is cleared by other consultants including nephrology and cardiology. Patient has been a smoker over the years, she had at least a 69-[id number]-yola smoking history. Remind you patient had a PFT with chest x-ray still showing evidence of pulmonary edema which will definitely compromise her PFT will likely reflect more restriction than obstructive lung disease. WBC count today is 4.9 hemoglobin 7.7 electrolytes are normal BUN is 85 creatinine 3.59 02/18/2024 Patient is seen and evaluated in room at bedside; sitting up in bed; ports stabl e breathing - patient underwent AFRICA which revealed aortic valve tricuspid and functioning normally. Mitral valve structurally normal with mild central secondary mitral regurgitation. Pulmonary vein flow has systolic dominance. Tricuspid valve appears to be normal with mild tricuspid regurgitation. Intra-atrial septum is intact with no evidence of PFO. Left atrial appendage free of clot. LV EF 35% with global hypokinesis. -- Patient is followed by cardiothoracic surgery and also nephrology. Nephrology not recommending any indication or need for hemodialysis. Patient remains on Lasix drip per nephrology. Patient has a negative fluid balance of 1322. Repeat blood work reveals hemoglobin is 7.9. BUN 82 creatinine 3.39. Mild elevation in liver function test. -Plan for surgery once clinically optimized 02/19/2024 Patient looks more awake than admission, sitting up in bed. [facility] officers at bedside Mentation at baseline. She talks freely. Denies chest pain or dyspnea at rest On presentation patient was found acute CHF and non-STEMI, workup showing triple-vessel coronary artery disease and patient will require bypass procedure with cardiothoracic surgery team on the case once medically optimized. Patient currently with fluid overload on Lasix drip, on admission it was 5 mg/h, currently increased to 10 mg/h. She is making around 1 L of urine output by yesterday. Saldaña catheter in place. She is also on aspirin 81 mg Hemoglobin 8.5, creatinine 3.3 compared to 2.7 on admission with baseline 0.9- 1.2. Liver enzymes mildly elevated since admission. 02/20/2024 Patient came from half-way for an NSTEMI. Workup showing severe triple-vessel coronary artery disease currently being evaluated by cardiothoracic surgery team for possible cardiac bypass procedure. However she needs optimization and she is currently kept on IV Lasix 10 mg, creatinine went up 3.3 today. Block Cableman recommended to continue with Lasix drip still tomorrow Patient diabetic, she is on Levemir 8 units twice daily, she is developing episodes of hypoglycemia we will going to lower the dose to 6 units twice daily She is also on aspirin 325 mg 02/21/2024 Patient continues to improve today, she is more energetic, less dyspneic Lasix drip switched to IV Lasix 60 mg twice daily Cardiothoracic surgery team with plan for valve replacement surgery on this coming Sunday 02/25 Sugars better controlled with no hyperglycemia on Levemir 6 units twice daily 02/22/2024 Patient breathing is stable, denies chest pain No new complaint Will go check breathing tomorrow Plan for cardiac surgery on Monday02/23/2024 Patient awake alert She feels more weak today Creatinine is up Plan for cardiac surgery early next week 02/24/2024 Patient feels weak No chest pain or dyspnea Patient anticipates surgery on Monday workers' compensation hearings officer at bedside 02/25/2024 Patient awake alert looks comfortable Generally weak Creatinine stable around 3.2 Plan for bypass cardiac surgery tomorrow, patient is agreeable to the current plan 02/26/2024 Patient is seen in follow-up today for coronary artery bypass with cardiothreading hospital surgery. Patient currently n.p.o. and preop. Will await surgical report. 02/27/2024 Patient is seen in follow-up this morning currently in the ICU with multiple medical consultations following. Patient is status post bypass yesterday currently maintained on 4 L via nasal cannula. Patient is reporting some shortness of breath although biggest concern is severe nausea. Patient is maintained on Reglan and Zofran as needed. Will make Reglan scheduled. Patient did have mediastinal chest tube removed and was taken off balloon pump most recently this morning. Patient continues on insulin drip and will continue monitoring sugars closely continue with current regimen and will transition off insulin drip once patient nausea is improved and tolerating diet. Patient is afebrile at this time. 02/28/2024 Patient is seen in follow-up today currently sitting up in the chair tolerating ice chips. Patient reports continues with intermittent nausea although significantly improved. Patient remains on 2 L and has been working on incentive spirometer. Encouraged at least 10 times every hour while awake. Patient was on insulin drip with history of diabetes and being transition to sliding scale. Patient was given a dose of long-acting and will make twice daily and recommend monitoring Accu-Cheks before meals and at bedtime and 2 AM for tight glycemic control. Kidney functions are stable with nephrology following. 02/29/2024 Patient is seen in follow-up continues in the ICU with multiple medical consultations following. Patient is currently hypotensive medications being adjusted and patient is receiving albumin. Patient reports to feeling exhausted and not sleeping very well. Patient's blood sugars being adjusted and using sliding scale. Continue with Levemir twice daily and will adjust accordingly. Blood sugars have been on the lower side and not requiring long-acting. Patient not eating much and continues with some nausea. 03/01/2024 Patient is seen in follow-up in the ICU currently sitting up in the chair. Patient remains on dopamine and also has been started on milrinone. Patient continues with some nausea although able to tolerate a little more intake and blood sugars have been elevated during the day will increase long-acting and continue with sliding scale and Accu-Cheks before meals and at bedtime. Patient continues with chest tubes as well as swans catheter at this time. Patient has been encouraged to continue using incentive spirometer at least 10 times every hour while awake. Recommend PT/OT therapy daily as patient is significantly weak and has had prolonged hospitalization. 03/04/2024 Patient is seen this morning and continues to be in the ICU with multiple medical consultations following. Patient continues with indwelling Saldaña catheter monitoring output closely as kidney functions remain elevated. Nephrology is following and discussing possible need for renal replacement therapy. Cardiology following and Imdur is being added. Patient continues with chest tubes and continued volume overload noted on imaging. Patient continues on oxygen via nasal and appears pale, will order CBC. Transfuse if 7 or less. 03/05/2024 Patient is seen in follow-up today continues in the ICU with medical consultations following. Patient is receiving a PICC line and also maintained on milrinone. Patient continues on IV Bumex as well with nephrology following having worsening kidney functions with a creatinine of 4.68 and a BUN of 78. Sodium on the lower side at 131. Magnesium within normal limits at 1.9. Blood sugars have been more elevated and will monitor closely with Accu-Cheks before meals and at bedtime as well as 2 AM and adjust insulins accordingly. Patient continues on 1 to 2 L and has been attempting to remove oxygen maintaining oxygen saturations of 90%. Encouraged to increase activity as tolerated and continued incentive spirometer use. 03/06/2024 Patient is seen this morning in the ICU currently sitting up in the chair continues with chest tubes and significant output noted. Patient maintained on IV Bumex with nephrology following discussing possible renal replacement. Patient's urine output has increased and improved and being monitored daily. Recommend follow-up labs in the a.m. Continue to monitor blood sugars and will titrate accordingly and adjust as needed. Encouraged oral intake as patient continues to report not much of an appetite. Patient appears pale and exhausted. Continued encouragement of incentive spirometer at least 10 times every hour while awake. Review of systems: Constitutional: reports of fatigue today, no fever, or chills Cardiovascular: reports of chest wall pain Respiratory: reports of shortness of breath with exertion, occasional cough GI: reports of intermittent nausea and improving, no vomiting, or diarrhea : No reports of dysuria or retention Neurovascular: reports of generalized weakness All medications have been reviewed Active Medications Acetaminophen (Acetaminophen Tab 325 Mg Tab) 650 mg PO Q4HR PRN PRN Reason: Fever and/ or Pain Hydrocodone Bitart/Acetaminophen (Hydrocodone/Apap 5-325mg 1 Each Tab) 1 each PO Q4HR PRN PRN Reason: Breakthrough Pain Last Admin: 03/07/24 03:01 Dose: 1 each Albuterol/Ipratropium (Ipratropium-Albuterol 3 Ml Neb) 3 ml INHALATION RT-Q2H PRN PRN Reason: Shortness Of Breath Or Wheezing Albuterol/Ipratropium (Ipratropium-Albuterol 3 Ml Neb) 3 ml INHALATION RT-QID [facility] Last Admin: 03/06/24 20:08 Dose: Not Given Amiodarone HCl (Amiodarone 200 Mg Tab) 200 mg PO BID [facility] Last Admin: 03/06/24 20:29 Dose: 200 mg Aspirin (Aspirin 325 Mg Tab) 325 mg PO DAILY [facility] Last Admin: 03/06/24 08:05 Dose: 325 mg Atorvastatin Calcium (Atorvastatin 40 Mg Tab) 40 mg PO DAILY [facility] Last Admin: 03/06/24 08:05 Dose: 40 mg Bisacodyl (Bisacodyl 10 Mg Supp) 10 mg RECTAL DAILY PRN PRN Reason: Constipation Budesonide/Formoterol Fumarate (Symbicort 160-4.5 Mcg Inhaler) 2 puff INHALATION RT-BID [facility] Last Admin: 03/06/24 20:06 Dose: 2 puff Bumetanide (Bumetanide 0.25 Mg/Ml 10 Ml Vial) 4 mg IV Q12HR [facility] Last Admin: 03/06/24 21:59 Dose: 4 mg Clopidogrel Bisulfate (Clopidogrel 75 Mg Tab) 75 mg PO DAILY [facility] Last Admin: 03/06/24 08:05 Dose: 75 mg Dextrose/Water (Dextrose 50% Syringe 50 Ml) 25 ml IVP PER PROTOCOL PRN; Protocol PRN Reason: Hypoglycemia Dextrose/Water (Dextrose 50% Syringe 50 Ml) 50 ml IVP PER PROTOCOL PRN; Protocol PRN Reason: Hypoglycemia Heparin Sodium (Porcine) (Heparin Sodium,Porcine 5,000 Unit/Ml 1 Ml Vial) 5,000 unit SQ Q8HR [facility] Last Admin: 03/07/24 01:14 Dose: 5,000 unit Hydralazine HCl (Hydralazine Hcl 10 Mg Tab) 40 mg PO Q6H [facility] Last Admin: 03/07/24 07:10 Dose: 40 mg Amiodarone HCl 150 mg/ (Dextrose/Water) 103 mls @ 618 mls/hr IV .Q10M PRN PRN Reason: A.FIB/FLUTTER Milrinone Lactate/Dextrose 20 (mg/ IV Solution) 100 mls @ 2.397 mls/hr IV .Q24H [facility] Last Admin: 03/06/24 06:30 Dose: 0.2 mcg/kg/min, 4.794 mls/hr Insulin Aspart (Insulin Aspart (Novolog) 100 Unit/Ml Vial) 0 unit SQ ACHS [facility]; Protocol Last Admin: 03/07/24 06:34 Dose: Not Given Insulin Detemir (Insulin Detemir (Levemir) 100 Unit/Ml Syr) 10 unit SQ BID@0700,2100 [facility] Last Admin: 03/07/24 06:35 Dose: 10 unit Isosorbide Dinitrate (Isosorbide Dinitrate 10 Mg Tab) 30 mg PO QID [facility] Last Admin: 03/06/24 20:30 Dose: 30 mg Levothyroxine Sodium (Levothyroxine 88 Mcg Tab) 176 mcg PO DAILY@0630 [facility] Last Admin: 03/07/24 06:35 Dose: 176 mcg Metolazone (Metolazone 5 Mg Tab) 5 mg PO BID [facility] Last Admin: 03/06/24 20:29 Dose: 5 mg Metoprolol Tartrate (Metoprolol Tartrate 12.5 Mg Tab) 12.5 mg PO BID [facility] Last Admin: 03/06/24 20:29 Dose: 12.5 mg Miscellaneous Information (Magnesium Replacement Protocol 1 Each Misc) 1 each MISCELLANE DAILY PRN; Protocol PRN Reason: Per Protocol Miscellaneous Information (Potassium Replacement Protocol 1 Each [facility]) 1 each MISCELLANE DAILY PRN; Protocol PRN Reason: Per Protocol Miscellaneous Information (Phosphorus Replacement Protoco 1 Each [facility]) 1 each MISCELLANE DAILY PRN; Protocol PRN Reason: Per Protocol Ondansetron HCl (Ondansetron 4 Mg/2 Ml Vial) 4 mg IVP Q6HR PRN PRN Reason: Nausea And Vomiting Last Admin: 03/05/24 20:57 Dose: 4 mg Pantoprazole Sodium (Pantoprazole 40 Mg Tablet) 40 mg PO AC-BRKFST [facility] Last Admin: 03/07/24 06:35 Dose: 40 mg Senna/Docusate Sodium (Sennosides-Docusate Sodium 1 Each Tab) 2 each PO HS [facility] Last Admin: 03/06/24 20:29 Dose: 2 each Sodium Bicarbonate (Sodium Bicarbonate Tab 650 Mg Tab) 650 mg PO BID [facility] Last Admin: 03/06/24 20:29 Dose: 650 mg Sodium Chloride (Sodium Chloride 0.9% Flush 10 Ml Syringe) 10 ml IV BID [facility] Last Admin: 03/06/24 20:30 Dose: 10 ml Trazodone HCl (Trazodone Hcl 50 Mg Tab) [address] [facility] Last Admin: 03/06/24 20:29 Dose: 50 mg Physical exam: GENERAL: The patient is alert and oriented x3, pale, currently sitting up in the chair well developed, thin built. Generally weak, elderly appearing HEENT: Pupils are round and equally reacting to light. EOMI. No scleral icterus. No conjunctival pallor. Normocephalic, atraumatic. No pharyngeal erythema. No thyromegaly. CARDIOVASCULAR: S1 and S2 muffled, heart hugger noted, chest tubes noted PULMONARY: Diminished breath sounds bilaterally, faint crackles. Tachypnea ABDOMEN: Soft, nontender, nondistended, normoactive bowel sounds. No palpable organomegaly. MUSCULOSKELETAL: No joint swelling or deformity. EXTREMITIES: No cyanosis, clubbing, 1+ bilateral pitting leg edema. NEUROLOGICAL: Gross neurological examination did not reveal any focal deficits. Diffusely weak SKIN: No rashes. no petechiae. Pale Assessment: Acute systolic CHF exacerbation, ejection fraction: 20 to 25% non-STEMI, ekg New left bundle branch block, secondary to triple-vessel coronary artery disease status post CABG Mild hypoxic respiratory failure, improving Acute kidney injury on chronic kidney disease, nonoliguric Acute on chronic anemia of chronic disease Acute urinary tract infection, urine culture showing skin or genital kwesi. Resolved Diabetes mellitus, type II, uncontrolled with hyper and hypoglycemia Continued ongoing nicotine dependence Chronic ulcers of the right big toe Chronic kidney disease stage II with acute kidney injury GI prophylaxis DVT prophylaxis Full code Plan: Cardiothoracic surgery team following as attending and patient is status post bypass procedure and off balloon pump . Mediastinal chest tube removed, daily chest x-ray ordered and showing continued vascular congestion patient is continued on IV Bumex twice daily nephrology following. Kidney functions continue to be elevated and being monitored daily for possible renal replacement. Per nursing staff urine output has improved overnight and is being monitored closely. Saldaña catheter being discontinued and awaiting to void Continue Accu-Cheks before meals and at bedtime and continue to encourage oral intake, adjust insulins accordingly as patient's blood sugars have been on the lower side. Not much of an oral intake. Continue with anti-nausea medications as needed and small frequent meals, continue with supplements between meals Patient is continued on milrinone, medications being adjusted with cardiothoracic surgery along with with cardiology Incentive spirometer at the bedside encouraged the patient to use at least 10 times every hour while awake Follow-up on repeat labs and replace electrolytes per protocol. Transfuse if 7 or less on hemoglobin We will continue to follow with cardiothoracic surgery during hospitalization. Due to multiple complex medical issues, overall prognosis is guarded The impression and plan of care has been dictated by Mandy Granda, Nurse Practitioner as directed. Dr. Andrzej MD I have performed a history and examination and MDM of this patient, discussed the same with the dictator, and agree with the dictator's assessment and plan as written ,documented as a scribe. Based on total visit time, I have performed more than 50% of the visit. Objective - Vital Signs Vital signs: Vital Signs Temp 97.9 F 03/06/24 08:00 Pulse 63 03/06/24 08:00 Resp 17 03/06/24 08:00 BP 101/52 03/06/24 08:00 Pulse Ox 94 L 03/06/24 08:00 FiO2 40 02/26/24 16:39 Intake & Output 03/05/24 03/06/24 03/06/24 18:59 06:59 18:59 Intake Total 735.39 739.084 33 Output Total 544 1085 160 Balance 191.39 -345.916 -127 Weight 89.7 kg Intake: IV 441 156 33 .9NS Cardiac Output 60 .9NS Pressure Bag 51 36 3 0.9 sodium chloride 330 120 30 Intake, IV Titration 94.39 93.084 Amount Milrinone-D5w Pmx 20 mg 94.39 93.084 In Dextrose/Water 1 100ml .bag @ 0.1 MCG/KG/MIN 2. 397 mls/hr IV .Q24H [facility] Rx#:[id number] Oral 200 Tube Feeding 490 Output: Chest Tube Drainage 350 610 80 Left Pleural Chest Tube 200 330 60 Right Pleural Chest Tube 150 280 20 Urine 194 475 80 Other: Voiding Method Indwelling Catheter Indwelling Catheter Indwelling Catheter ABP, PAP, CO, CI - Last Documented Arterial Blood Pressure 139/47 Pulmonary Artery Pressure 36/20 Cardiac Output 4.2 Cardiac Index 2.3 - Labs CBC & Chem 7: 03/06/24 05:51 03/06/24 05:51 Labs: Abnormal Lab Results - Last 24 Hours (Table) 03/05/24 03/05/24 03/05/24 Range/Units 12:28 16:41 20:06 RBC (3.80-5.40) m/uL Hgb (11.4-16.0) gm/dL Hct (34.0-46.0) % MCHC (31.0-37.0) g/dL Sodium (137-145) mmol/L Carbon Dioxide (22-30) mmol/L BUN (7-17) mg/dL Creatinine (0.52-1.04) mg/dL Glucose (74-99) mg/dL POC Glucose (mg/dL) 179 H 264 H 312 H (70-110) mg/dL Calcium (8.4-10.2) mg/dL 03/06/24 03/06/24 Range/Units 05:51 05:51 RBC 3.00 L (3.80-5.40) m/uL Hgb 8.9 L (11.4-16.0) gm/dL Hct 29.7 L (34.0-46.0) % MCHC 29.9 L (31.0-37.0) g/dL Sodium 132 L (137-145) mmol/L Carbon Dioxide 19 L (22-30) mmol/L BUN 83 H (7-17) mg/dL Creatinine 4.59 H (0.52-1.04) mg/dL Glucose 61 L (74-99) mg/dL POC Glucose (mg/dL) (70-110) mg/dL Calcium 8.3 L (8.4-10.2) mg/dL
[2024-03-07 07:29] LABS: HCT 26.8 % (34.0-46.0); HGB 8.4 gm/dL (11.4-16.0); Hypochromasia Moderate; MCH 30.9 pg (25.0-35.0); MCHC 31.5 g/dL (31.0-37.0); MCV 97.9 fL (80.0-100.0); Macrocytosis Slight; Mean Platelet Volume 8.7; Platelet Count 328 k/uL (150-450); RBC 2.73 m/uL (3.80-5.40); RDW 15.1 % (11.5-15.5); WBC 5.7 k/uL (3.8-10.6)
--- NOTE | 2024-03-07 07:48 | XR ---
EXAMINATION TYPE: XR chest 1V portable DATE OF EXAM: 03/07/2024 COMPARISON: 02/26/1924 HISTORY: Post cardiac surgery TECHNIQUE: Single frontal view of the chest is obtained. FINDINGS: No sizable pneumothorax on today's exam. Bilateral chest tubes. Diffuse interstitial patte rn with tiny pleural effusion and basilar infiltrate. Post median sternotomy. Rhome-Jamal catheter stab le. Osseous structures unchanged. Right-sided PICC line seen with the tip overlying the SVC. IMPRESSION: 1. Diffuse pleural parenchymal changes most CHF. Underlying pneumonia not excluded. 2. No sizable pneumothorax.
[2024-03-07 07:53] LABS: African American GFR (CKD) 10 (>60 ml/min/1.73 sqM); Anion Gap 9 mmol/L; Blood Urea Nitrogen 88 mg/dL (7-17); Calcium 8.2 mg/dL (8.4-10.2); Carbon Dioxide 18 mmol/L (22-30); Chloride 102 mmol/L (98-107); Glucose 99 mg/dL (74-99); Non-African American GFR(CKD) 9 (>60 ml/min/1.73 sqM); Potassium 4.5 mmol/L (3.5-5.1); Sodium 129 mmol/L (137-145)
--- NOTE | 2024-03-07 09:32 | P.PN ---
Subjective Progress Note Date: 03/07/24 Principal diagnosis: Triple-vessel coronary artery disease, non-STEMI this admission, acute systolic heart failure with reduced ejection fraction 35%, new onset ischemic cardiomyop athy, mild mitral valve regurgitation on [place], acute on chronic kidney disease, acute anemia. History of hypertension, hyperlipidemia, hypothyroid, diabetes mellitus, CVA, hepatitis as a child, CKD stage IV, previous tobacco dependence with recent cessation, severe COPD, previous methamphetamine use with recent cessation, family history of coronary artery disease. POD #10 Off-pump CABG x 4 with sequential left internal mammary artery to left anterior descending coronary artery and diagonal coronary artery, reverse saphenous vein graft's to the posterior descending coronary artery and second obtuse marginal coronary artery, closure of the left atrial appendage with 35mm AtriCure clip, placement of percutaneous right femoral intra-aortic balloon pump, transesophageal echocardiogram performed by anesthesia. Postoperative acute blood loss anemia, expected secondary to hemodilution and preoperative anemia. Postoperative paroxysmal atrial fibrillation, a known common occurrence after cardiac surgery, not a complication. The patient was seen and examined in follow-up today March 07, 2024 at her bedside in the intensive care unit. Currently she is sitting up to the bedside chair, is awake, alert, oriented x 3 and is in no acute apparent distress. Denies any complaints of pain or shortness of breath at this time. She reports her pain is well-controlled on the current pain medication regimen. She is complaining of some generalized weakness especially with ambulating in the hallway, reports her legs feel heavy when walking. Strength is equal bilateral. She continues receiving Bumex and Zaroxolyn, urine output in the last 8 hours was 500 mL. Right and left pleural chest tubes remain in place to waterseal. No air leak is present. She continues to diurese through her chest tubes with her right pleural chest tube draining 100 mL output in the last 8 hours and 250 mL output in 24 hours. Left pleural chest tube drained 350 mL of thin serosanguineous drainage in the last 8 hours and 700 mL in the last 24 hours. Oxygen saturations are 95% on room air and she is achieving 1000 mL on her incentive spirometry with encouragement. She does reports she has been up ambulating in the intensive care unit hallway with standby assistance from nursing and therapy staff using a walker for balance. Bedside telemetry is showing sinus bradycardia heart rate 58 bpm. Chest x-ray and laboratory results reviewed. Objective - Vital Signs Vital signs: Vital Signs Temp 98.5 F 03/07/24 04:00 Pulse 60 03/07/24 07:00 Resp 17 03/07/24 07:00 BP 113/58 03/07/24 07:00 Pulse Ox 94 L 03/07/24 08:08 FiO2 40 02/26/24 16:39 Intake & Output 03/06/24 03/07/24 03/07/24 18:59 06:59 18:59 Intake Total 156 620 480 Output Total 728 1450 0 Balance -572 -830 480 Weight 89.5 kg Intake: IV 156 120 30 .9NS Pressure Bag 6 0.9 sodium chloride 150 120 30 Oral 500 450 Output: Chest Tube Drainage 390 450 Left Pleural Chest Tube 230 350 Right Pleural Chest Tube 160 100 Urine 130 1000 0 Straight 500 Post Void Residual 208 Other: Voiding Method Indwelling Catheter ABP, PAP, CO, CI - Last Documented Arterial Blood Pressure 139/47 Pulmonary Artery Pressure 36/20 Cardiac Output 4.2 Cardiac Index 2.3 - Exam CONSTITUTIONAL: Sitting up to the bedside chair in the intensive care unit, appears comfortable, cooperative, no apparent acute distress. HEENT: Neck is supple, no JVD, no lymphadenopathy. Right IJ Cordis and Garland- Jamal catheter in place and functioning. RESPIRATORY: Lungs sounds essentially clear throughout, diminished to her bilateral bases. Respirations are symmetrical and nonlabored. Currently on room air with oxygen saturations 95%. Able to achieve 1000 mL on her incentive spirometry. Strong cough. CARDIOVASCULAR: Regular rhythm and rate. S1 and S2 present, negative for S3, gallop or murmur. Bedside telemetry showing sinus bradycardia heart rate 58 bpm. Sternum is stable. Palpable peripheral pulses bilaterally. No calf pain or tenderness noted. Heart hugger in place with patient demonstrating appropriate use. Knee-high CRISTOBAL hose and sequential compression devices in place to his bilateral lower extremities. GASTROINTESTINAL: Abdomen soft, nontender, nondistended. Active bowel sounds present 4 quadrants. Passing flatus. No guarding or rigidity. Tolerating diet. Bowel movement on 03/05/2024. GENITOURINARY: Continues to void. Urine retention last evening, requiring straight catheterization with 500 mL of urine output. INTEGUMENTARY: Skin is warm and dry with no evidence of clubbing or cyanosis. Midline sternal incision clean dry and well approximated, covered with dry intact dressing. Left lower extremity EVH sites well approximated without redness or drainage. NEUROLOGIC: Cranial nerves II through XII intact. No focal deficits. MUSKULOSKELETAL: Able to move all extremities, strength equal bilaterally, generalized weakness. PSYCHIATRIC: Alert and oriented to person place and time, appropriate affect, intact judgment and insight. INVASIVE LINES AND TUBES: Left/right pleural chest tubes present and connected to low continuous wall suction, no air leaks present. Left pleural chest tube drained 350 mL of thin serosanguineous drainage in the last 8 hours and 700 mL in the last 24 hours. Right pleural chest tube drained 100 mL of thin serosanguineous drainage in the last 8 hours and 250 mL in the last 24 hours. - Allied health notes Allied health notes reviewed: nursing - Labs CBC & Chem 7: 03/07/24 06:35 03/07/24 06:35 Labs: Abnormal Lab Results - Last 24 Hours (Table) 03/06/24 03/06/24 03/06/24 Range/Units 11:50 16:23 19:57 RBC (3.80-5.40) m/uL Hgb (11.4-16.0) gm/dL Hct (34.0-46.0) % Sodium (137-145) mmol/L Carbon Dioxide (22-30) mmol/L BUN (7-17) mg/dL Creatinine (0.52-1.04) mg/dL POC Glucose (mg/dL) 154 H 236 H 298 H (70-110) mg/dL Calcium (8.4-10.2) mg/dL 03/07/24 03/07/24 03/07/24 Range/Units 05:51 06:35 06:35 RBC 2.73 L (3.80-5.40) m/uL Hgb 8.4 L (11.4-16.0) gm/dL Hct 26.8 L (34.0-46.0) % Sodium 129 L (137-145) mmol/L Carbon Dioxide 18 L (22-30) mmol/L BUN 88 H (7-17) mg/dL Creatinine 4.97 H (0.52-1.04) mg/dL POC Glucose (mg/dL) 136 H (70-110) mg/dL Calcium 8.2 L (8.4-10.2) mg/dL - Imaging and Cardiology Chest x-ray: report reviewed, image reviewed Assessment and Plan Assessment: Triple-vessel coronary artery disease, non-STEMI this admission, status post four-vessel off-pump coronary artery bypass grafting surgery Acute systolic heart failure with reduced ejection fraction, 20-25%, 35% on [place] New onset ischemic cardiomyopathy Moderate to severe mitral regurgitation on transthoracic echocardiogram, mild mitral regurgitation on [place] Acute on chronic kidney disease secondary to ATN secondary to cardiorenal syndrome Acute anemia Hypertension Hyperlipidemia, treated, cholesterol 150, LDL 72.8 Hypothyroid, TSH 1.73 Diabetes mellitus, hemoglobin A1c 7.1% CVA Hepatitis as a child Chronic kidney disease Previous tobacco dependence with recent cessation Severe COPD, preoperative FEV1 27% of predicted Previous methamphetamine use with recent cessation Family history of coronary artery disease with sister having multiple stents Postoperative acute blood loss anemia, expected given hemodilution and preo perative anemia Postoperative paroxysmal atrial fibrillation, a known common occurrence after cardiac surgery, not a complication, status post ligation of the left atrial appendage, currently sinus bradycardia Plan: Continue to maximize medical therapy with aspirin, statin, Plavix, beta-alex. Will increase beta-alex as tolerated. Continue hydralazine for afterload reduction. Continue Primacor 0.1 mcg/kg/min. Continue oral amiodarone for A-fib prophylaxis, weekly taper, decreased to 200 mg BID March 05, 2024. Encourage incentive spirometry use 10 times every hour while awake. Bronchodilators per pulmonology. Increase activity, ambulate as tolerated. PT/OT/cardiac rehab following. Will monitor daily labs and chest x-rays. Electrolyte replacement per protocol. Currently on IV bumex 4 mg BID, zaroxlyn 5 mg p.o. twice daily. GI/DVT prophylaxis. Decision regarding dialysis per nephrology. Pain control per current medication regimen. Avoid Toradol due to kidney failure. Insulin management per internal medicine. Preoperative hemoglobin A1c 7.1%. Continue pleural chest tubes for another 24 hours due to high output, placed to water seal yesterday March 06, 2024. May bladder scan and straight cath for >300 mL residual. Continue to record strict accurate intake and output. Daily weights. More recommendations to follow based on patient's clinical course. Time with Patient: Greater than 30
--- NOTE | 2024-03-07 09:59 | P.PN ---
Subjective Progress Note Date: 03/07/24 The patient is a 58-year-old female with past medical history of multivessel coronary artery disease and ischemic cardiomyopathy, who is currently admitted after undergoing CABG x 4. Follow-up limited echocardiogram shows drop in LV function to 15% with interventricular dyssynchrony. The patient had been started on inotropes for poor cardiac output. Patient's kidney function has also worsened postoperatively, which is being followed by nephrology. There was discussion regarding possible dialysis, however that is currently on hold. Patient was interviewed and examined sitting up in the recliner chair. She states she generally feels well other than having arthritic aches and pains. She states she is happy to have both her Saldaña catheter and Cordis removed as of yesterday. She still has some discomfort with coughing as she has bilateral chest tubes. GENERAL: Well-appearing, well-nourished and in no acute distress. NECK: Supple without JVD or thyromegaly. LUNGS: Breath sounds diminished to auscultation bilaterally. Respiration equal and unlabored. Bibasilar crackles. HEART: Regular rate and rhythm without murmurs, rubs or gallops. S1 and S2 heard. EXTREMITIES: Normal range of motion, +1 bilateral lower extremity edema. No clubbing or cyanosis. Peripheral pulses intact and strong. TELEMETRY: Sinus rhythm overnight. Heart rate in the 50s to 60s IMPRESSION: Triple-vessel coronary artery disease Status post CABG x 4 Ischemic cardiomyopathy, EF 15% Mitral regurgitation Postoperative atrial fibrillation, remains in sinus Acute on chronic kidney disease, secondary to cardiorenal syndrome Hypertension Diabetes COPD PLAN: CV surgery to wean Primacor and taper amiodarone No plans for dialysis at this time Continue supportive treatment including aggressive pulmonary hygiene No further recommendations from the cardiac standpoint as patient is being managed by CV surgery I am dictating on behalf of Dr Jt Saunders's history/physical and assessment/plan. Objective - Vital Signs Vital signs: Vital Signs Temp 97.7 F 03/07/24 08:00 Pulse 58 L 03/07/24 09:00 Resp 14 03/07/24 09:00 BP 93/47 03/07/24 09:00 Pulse Ox 94 L 03/07/24 09:00 FiO2 40 02/26/24 16:39 Intake & Output 03/06/24 03/07/24 03/07/24 18:59 06:59 18:59 Intake Total 156 620 480 Output Total 728 1450 0 Balance -572 -830 480 Weight 89.5 kg Intake: IV 156 120 30 .9NS Pressure Bag 6 0.9 sodium chloride 150 120 30 Oral 500 450 Output: Chest Tube Drainage 390 450 Left Pleural Chest Tube 230 350 Right Pleural Chest Tube 160 100 Urine 130 1000 0 Straight 500 Post Void Residual 208 Other: Voiding Method Indwelling Catheter ABP, PAP, CO, CI - Last Documented Arterial Blood Pressure 139/47 Pulmonary Artery Pressure 36/20 Cardiac Output 4.2 Cardiac Index 2.3 - Labs CBC & Chem 7: 03/07/24 06:35 03/07/24 06:35 Labs: Abnormal Lab Results - Last 24 Hours (Table) 03/06/24 03/06/24 03/06/24 Range/Units 11:50 16:23 19:57 RBC (3.80-5.40) m/uL Hgb (11.4-16.0) gm/dL Hct (34.0-46.0) % Sodium (137-145) mmol/L Carbon Dioxide (22-30) mmol/L BUN (7-17) mg/dL Creatinine (0.52-1.04) mg/dL POC Glucose (mg/dL) 154 H 236 H 298 H (70-110) mg/dL Calcium (8.4-10.2) mg/dL 03/07/24 03/07/24 03/07/24 Range/Units 05:51 06:35 06:35 RBC 2.73 L (3.80-5.40) m/uL Hgb 8.4 L (11.4-16.0) gm/dL Hct 26.8 L (34.0-46.0) % Sodium 129 L (137-145) mmol/L Carbon Dioxide 18 L (22-30) mmol/L BUN 88 H (7-17) mg/dL Creatinine 4.97 H (0.52-1.04) mg/dL POC Glucose (mg/dL) 136 H (70-110) mg/dL Calcium 8.2 L (8.4-10.2) mg/dL
[2024-03-07 11:36] LABS: Glucose,Whole Blood 186 mg/dL (70-110)
--- NOTE | 2024-03-07 13:31 | P.PN ---
Subjective Progress Note Date: 03/07/24 Principal diagnosis: Acute hypoxic respiratory failure secondary to acute systolic congestive heart failure and ischemic cardiomyopathy Patient is a 58-year-old white female with past medical history significant for COPD, chronic ongoing tobacco dependence, CVA/TIA, diabetes mellitus, hyperlipidemia, hypertension, hypothyroidism, fibromyalgia, GERD, among other things. Patient presented back on 02/06/2024 from skilled nursing with chief complaint of increased lower extremity swelling. She states that she first noted the swelling back in December,. It is progressively worsened, she states she has gained approximately 20 pounds over the last 2 months. Approximately 10 days ago she was awoken at night with substernal chest pain. Nonradiating. With associated shortness of breath and sweating. Lasted up to 15 minutes. She is also had a nonproductive cough. She was noted to be febrile this admission. She is empirically covered on antibiotics. On arrival to the emergency room, she was noted to have elevated troponins of 1.29, 1.76, and 2.2. EKG showed normal sinus rhythm with left bundle branch block, without any other acute ischemic changes. No previous EKG for comparison. She was started on heparin infusion per protocol. She also was on a Nitropaste. Echocardiogram showed a severely impaired left ventricular ejection fraction of 20 to 25%, and moderate to severe mitral regurgitation. Today, she was started on a Lasix infusion at 5 mg/h. Heparin infusion was stopped as the patient is anemic. Patient denies any acute blood loss. No vaginal bleeding. No juan blood in stool. No melena. No nausea or vomiting or hematic emesis. Last colonoscopy was reportedly around 10 years ago. She is currently lying in bed, on 2 L/min nasal cannula. Chest x-ray on admission shows diffuse interstitial edema as well as bilateral consolidation and small effusions. Findings consistent with congestive heart failure. NT proBNP was elevated 25,000. Patient not making much urine despite Lasix infusion. Patient did have 1 episode of fever during her admission with a Tmax of 100.2 F. She was empirically she was empirically placed on Rocephin. Negative for influenza, RSV, COVID. Most recent BMP from today: Sodium 130, potassium 5.1, chloride 104, serum bicarb down to 17, BUN 63, creatinine worsening and 3.34, glucose 229. LFTs mildly elevated. Hepatitis panel nonreactive. Overall, hemodynamically stable. On 02/08/2024, seen the patient for a follow-up. The patient is currently on 3 L of oxygen by nasal cannula with a pulse ox of 94%. She should be able to wean down. She is on Lasix drip at 5 mg an hour and the patient is producing adequ ate amount of urine output. Her fluid balance is negative. As mentioned, the patient is post non-ST segment ovation myocardial infarction the patient is being seen by cardiology. The patient has severe cardiomyopathy with impaired left ventricular ejection fraction. Her blood work from today shows a BUN of 66 with a creatinine of 3.41 and this is consistent with an acute on chronic kidney injury. Sodium levels at 129, potassium is at 4.4 with a WBC count of 6.3 and a hemoglobin of 7.4. The patient is on IV Rocephin as an empiric antibiotic coverage. She is currently afebrile. The patient is being seen by cardiology. The patient will be kept on IV Lasix. Not a candidate for any invasive cardiac workup due to her acute on top of chronic kidney injury at this point in time. Her comorbidities are multiple. Unsure if she does have underlying coronary artery disease. Nevertheless, she has previous history of CVA, diabetes mellitus type 2, hypothyroidism and CHF. She was in skilled nursing for being arrested due to possession of amphetamines. Vasculitis workup was negative including a n egative EDSON and a negative P and C ANCA. Hepatitis profile was also negative. On 02/10/2024, the patient is being seen for a follow-up. No new complaints. No significant shortness of breath at rest. Remains on Lasix drip. Producing adequate amount of urine output. Blood work from today was noticed that the patient has a white cell count of 6 with a hemoglobin of 7.2 and a PET scan at 360. BUN 69 with a creatinine of 3.4 and a sodium levels at 129. The patient is being seen by cardiology and nephrology addition. She remains on Lasix drip which will be increased up to 10 mg an hour. Not a candidate for further cardiac catheterization based on underlying renal dysfunction. 02/11/2024, the patient is being seen for a follow-up. No new complaints. Monitor for improvement in her condition. She remains on 2 L of oxygen by nasal cannula. Fluid balance is -90 cc over the past 24 hours. Suboptimal response to diuretics and the patient remains on Lasix at 10 mg an hour. BUN 71 with a creatinine of 3.7, slightly worse compared to yesterday. Sodium is at 131. The patient denies having any chest pain. No significant hypotension. Remains on aspirin. Remains on metoprolol 25 mg p.o. twice a day. Cardiology on the case. She has significant cardiomyopathy. She is post acute non-STEMI. Not a candidate for cardiac catheterization due to renal impairment. The patient is seen today February 12, 2024 in follow-up on the selective care unit. She is currently sitting up in bed. Awake and alert in no acute distress. She is maintaining O2 saturation in the 90s on 3 L nasal cannula. She is afebrile. Hemodynamically stable. Today's chest x-ray reviewed reveals diffuse bilateral infiltrates with small effusion or early congestive heart failure. Hemoglobin 6.7. 1 unit of packed blood cells have been ordered. Platelets 362. White count 6.1. Sodium 131. Potassium 4.2. Bicarb 21. BUN 80. Creatinine 3.89. Glucose 286. She remains on. Antibiotics in the form of ceftriaxone. Remains on a Lasix drip at 5 mg an hour. Currently in a -178 mL balance. The patient is seen today February 13, 2024 in follow-up on the selective care unit. She is awake and alert in no acute distress. Sitting up in bed. Blood and urine cultures revealed no growth. White count 6.2. Hemoglobin 7.4. Platelets 01/05/1978. Sodium 133. Potassium 3.9. Bicarb 21. BUN 83. Creatinine 3.60. Glucose 154. She remains on a Lasix drip currently at 5 mg/h. She remains on a heparin drip. Receiving sodium bicarb tablets. Continued on bronchodilators. Continued on antibiotics in the form of ceftriaxone. She is currently in a negative balance. Voided 1 L today. The patient is seen today February 14, 2024 in follow-up on the selective care unit. She is currently sitting up in bed. Awake and alert in no acute distress. She is maintaining good O2 saturations in the 90s on 3 L/min per nasal cannula. She is afebrile. Hemodynamically stable. Follow-up chest x-ray continues to show diffuse bilateral infiltrate with small effusions. She is status post 1 unit of packed red blood cells this admission. Last hemoglobin 7.7. Sodium 135. Potassium 4.6. Bicarb 20. BUN 87. Creatinine 3.55. Glucose 358. She is continued on bronchodilators. Antibiotics in form of ceftriaxone. She remains on a Lasix drip at 10 mg/h. Receiving sodium bicarb tablets. Currently -688 mL balance. Nephrology is following. The patient is seen today February 15, 2024 in follow-up on the selective care unit. She is currently sitting up in bed awake and alert in no acute distress. She is maintaining O2 saturations in the mid 90s on 2 L/min per nasal cannula. She is afebrile. Hemodynamically stable. White count 6.8. Hemoglobin 8.6. Platelets 438. Sodium 135. Potassium 4.0. Bicarb 21. BUN 84. Creatinine 3.41. Glucose 171. She remains on a Lasix drip at 10 mg/h. Continued on a heparin drip. Plan to -1 L balance. Stress testing today reveals a large area of fixed defect involving all segments of the myocardium suggestive of remote ischemia. Could not exclude a tiny area of stress-induced reversibility within the apex. Reduced wall motion activity with ejection fraction of only 21%. Patient was seen and examined today on 02/16/2024 patient is feeling better today, continues to diurese with a Lasix drip, remains in negative fluid balance, patient underwent cardiac catheterization today and she was found to have severe triple-vessel coronary artery disease, now she is being evaluated by surgery, patient does have severe LV dysfunction, she is definitely high surgical risk, but no absolute contraindication to surgery.Basic metabolic profile is normal BUN is 85 creatinine 3.58 however the patient may require hemodialysis, and she will need nephrology clearance she will also need a bedside spirometry/FEV1 for preoperative pulmonary clearance in the meantime we will continue diuretics/Lasix drip Patient was reevaluated today on 02/17/2024, remains on Lasix drip, remains in negative fluid balance, patient is very well aware that she had abnormal cardiac catheterization and now she is being evaluated for possible myocardial revascularization. Patient remains on oxygen at 2 L/min and her O2 sats is 97%, her PFT showed severe obstructive lung disease, however not severe enough to not consider myocardial revascularization if the patient is cleared by other con sultants including nephrology and cardiology. Patient has been a smoker over the years, she had at least a 31-[id number]-crla smoking history. Remind you patient had a PFT with chest x-ray still showing evidence of pulmonary edema which will definitely compromise her PFT will likely reflect more restriction than obstructive lung disease. WBC count today is 4.9 hemoglobin 7.7 electrolytes are normal BUN is 85 creatinine 3.59 Patient was reevaluated today on 02/18/2024, remains on Lasix drip, 10 mg/h, remains in constant negative fluid balance, chest x-ray today is definitely showing improvement but nonetheless her pulmonary edema is not completely resolved. Patient was being considered for CABG however the plan is presently on hold because of her overall pulmonary status and possibly the patient could benefit from more optimization of her congestive heart failure. In the meantime she seems to be doing better with the Lasix drip. Patient is also maintained on bronchodilators for her underlying COPD. Patient was seen today on 03/05/2024, patient is now postoperative day #8Off-pump CABG x 4 with sequential left internal mammary artery to left anterior descending coronary artery and diagonal coronary artery, reverse saphenous vein graft to the posterior descending coronary artery and second obtuse marginal coronary artery, closure of the left atrial appendage with 35mm AtriCure clip, placement of percutaneous right femoral intra-aortic balloon pump, transesophageal echocardiogram performed by anesthesia. And is on room air, sitting at the bedside recliner, is in the ICU, not in any distress. Have fluid buildup and bipedal edema. Renal functioning is a bit worse, but the patient is making urine, remains on Primacor at 0.25 mcg/kg/min, intermittently on diuretics, no plans for hemodialysis at this point yet. To have both pleural chest tubes in place, giving over 1000 cc on her incentive spirometry, patient is ambulating with assistance. Chest x-ray minimal bilateral biapical pneumothoraces, and it it showed mild congestive heart failure. WBC is 5.8 hemoglobin 8.5 electrolytes are normal BUN is 78 creatinine 4.68 he is on oral amiodarone. He is also on aspirin and statins. Well as Plavix. For diuretics, patient is receiving Bumex 2 mg IV push every 12 hours for patient is also receiving bicarb 650 mg p.o. twice daily. Remains on GI and DVT prophylaxis. Patient was reevaluated today on 03/06/2024, she is now postoperative day #9. Patient remains in the ICU, patient is on room air, not in any distress. Continues to have bilateral pleural chest tubes, draining mostly clear fluid. And amount of drainage has been significant over the last 24 hours. Hence no plans to remove the chest tubes at this point in time. The left-sided chest tube drained 500 cc and the right pleural chest tube drained 450 cc overnight. Patient is comfortable, achieving 1000 mL on hide incentive spirometry. She does not seem to be in any distress, remains on milrinone at 0.1 mcg/kg/min. Chest x-ray is showing significant improvement in her pulmonary edema. WBC count is 5.9 hemoglobin 8.9 basic metabolic profile is normal BUN is 83 creatinine 4.59. Continues to have bipedal edema in spite of aggressive and significant diuresis. Was reexamined today on 03/07/24, remains in the ICU, remains on room air, remains on Primacor at 0.1 mcg/kg/min, continues to have significant output from her chest tubes bilaterally. Continues to have low ejection fraction of 15 to 20% remains on Bumex 4 mg every 12 hours. Patient is comfortable, not in any distress. She is on room air. Chest x-ray is showing mild pulmonary edema. WBC count is 5.7 hemoglobin 8.4 electrolytes are normal except for sodium 129 creatinine is on the rise up to 4.97 today, bicarb is 18 Objective - Vital Signs Vital signs: Vital Signs Temp 97.7 F 03/07/24 08:00 Pulse 59 L 03/07/24 10:00 Resp 13 03/07/24 10:00 BP 109/54 03/07/24 10:00 Pulse Ox 94 L 03/07/24 10:00 FiO2 40 02/26/24 16:39 Intake & Output 03/06/24 03/07/24 03/07/24 18:59 06:59 18:59 Intake Total 156 620 720 Output Total 728 1450 1168 Balance -572 -830 -448 Weight 89.5 kg Intake: IV 156 120 70 .9NS Pressure Bag 6 0.9 sodium chloride 150 120 70 Oral 500 650 Output: Chest Tube Drainage 390 450 Left Pleural Chest Tube 230 350 Right Pleural Chest Tube 160 100 Urine 130 1000 600 Straight 500 600 Post Void Residual 208 568 Other: Voiding Method Indwelling Catheter ABP, PAP, CO, CI - Last Documented Arterial Blood Pressure 139/47 Pulmonary Artery Pressure 36/20 Cardiac Output 4.2 Cardiac Index 2.3 - Exam GENERAL EXAM: Alert, 58-year-old female, in bed, on room air, not in distress, remains on room air. HEAD: Normocephalic and atraumatic EYES: Normal reaction of pupils, equal size. NOSE: Clear with pink turbinates. THROAT: No erythema or exudates. NECK: No masses, no JVD. CHEST: No chest wall deformity. LUNGS: Clear bilaterally, bilateral chest tubes are noted. Significant drainage noted from both chest tubes over the last 24 hours. CVS: S1 and S2 normal with no audible murmur, regular rhythm. No extra heart sounds ABDOMEN: No hepatosplenomegaly, active bowel sounds, no guarding or rigidity. SKIN: No rashes CENTRAL NERVOUS SYSTEM: Alert oriented x 3 no gross focal deficit EXTREMITIES: 1 + bipedal edema - Labs CBC & Chem 7: 03/07/24 06:35 03/07/24 06:35 Labs: Abnormal Lab Results - Last 24 Hours (Table) 03/06/24 03/06/24 03/07/24 Range/Units 16:23 19:57 05:51 RBC (3.80-5.40) m/uL Hgb (11.4-16.0) gm/dL Hct (34.0-46.0) % Sodium (137-145) mmol/L Carbon Dioxide (22-30) mmol/L BUN (7-17) mg/dL Creatinine (0.52-1.04) mg/dL POC Glucose (mg/dL) 236 H 298 H 136 H (70-110) mg/dL Calcium (8.4-10.2) mg/dL 03/07/24 03/07/24 03/07/24 Range/Units 06:35 06:35 11:34 RBC 2.73 L (3.80-5.40) m/uL Hgb 8.4 L (11.4-16.0) gm/dL Hct 26.8 L (34.0-46.0) % Sodium 129 L (137-145) mmol/L Carbon Dioxide 18 L (22-30) mmol/L BUN 88 H (7-17) mg/dL Creatinine 4.97 H (0.52-1.04) mg/dL POC Glucose (mg/dL) 186 H (70-110) mg/dL Calcium 8.2 L (8.4-10.2) mg/dL Assessment and Plan Assessment: Impression: Severe triple-vessel coronary artery disease based on cardiac catheterization 02/16/2024 Post CABG postoperative day #10 patient had 4 vessels off-pump CABG. Severe ischemic cardiomyopathy and LV dysfunction repeat echocardiogram continues to show LV dysfunction with ejection fraction 15 to 20%. Severe mitral valve regurgitation, on trans thoracic echocardiogram, but she had mild mitral regurgitation on [place]. Acute kidney injury, likely cardiorenal, worsening creatinine, being followed by nephrology. No plans for dialysis at this point Metabolic non-anion gap acidosis, secondary to above Chronic obstructive pulmonary disease, stable Diabetes mellitus type 1 History of hyperlipidemia History of hypertension History of CVA/TIA History of hypothyroidism History of fibromyalgia History of GERD Mildly elevated LFTs, hepatitis panel nonreactive Former tobacco smoker, 1/2 pack/day or approximately 15-year pack history Postoperative paroxysmal atrial fibrillation, expected. Severe underlying COPD Recommendation: Continue maximal medical therapy including aspirin statin Plavix and beta- blockers Continue to titrate Primacor as tolerated and depending on overall clinical picture considering the patient has severe LV dysfunction Continue to monitor output from pleural chest tubes, not quite ready to be re moved Continue oral amiodarone Continue GI prophylaxis and DVT prophylaxis Continue to monitor in the ICU Continue incentive spirometry Ambulate Continue daily weights continue strict I's and Close monitoring of renal status Will continue to follow Time with Patient: Less than 30
--- NOTE | 2024-03-07 14:34 | P.PN ---
Subjective patient is seen for follow-up for acute kidney injury. Patient remains on Primacor. Urine output 1130 for 24 hours. Saldaña catheter is out patient continues with urine retention. Currently maintained on IV Bumex every 12 hours. dose was increased yesterday. serum creatinine at 4.97 mg/dL today. No complaints of shortness of breath. Objective - Vital Signs Vital signs: Vital Signs Temp 98.0 F 03/07/24 12:00 Pulse 56 L 03/07/24 14:00 Resp 15 03/07/24 14:00 BP 100/55 03/07/24 14:00 Pulse Ox 96 03/07/24 13:00 FiO2 40 02/26/24 16:39 Intake & Output 03/06/24 03/07/24 03/07/24 18:59 06:59 18:59 Intake Total 156 720 730 Output Total 728 1450 1168 Balance -572 -730 -438 Weight 89.5 kg Intake: IV 156 120 80 .9NS Pressure Bag 6 0.9 sodium chloride 150 120 80 Intake, IV Titration 100 Amount Milrinone-D5w Pmx 20 mg 100 In Dextrose/Water 1 100ml .bag @ 0.1 MCG/KG/MIN 2. 397 mls/hr IV .Q24H [facility] Rx#:[id number] Oral 500 650 Output: Chest Tube Drainage 390 450 Left Pleural Chest Tube 230 350 Right Pleural Chest Tube 160 100 Urine 130 1000 600 Straight 500 600 Post Void Residual 208 568 Other: Voiding Method Indwelling Catheter ABP, PAP, CO, CI - Last Documented Arterial Blood Pressure 139/47 Pulmonary Artery Pressure 36/20 Cardiac Output 4.2 Cardiac Index 2.3 - Exam patient is awake, comfortable, no acute distress Alert oriented 3 Examination of the heart S1 and S2 Examination of the lungs bilateral breath sounds are heard, decreased breath sounds at the bases Abdomen is soft nontender Examination of lower extremities shows 2+ edema. [employer] exam grossly intact - Labs CBC & Chem 7: 03/07/24 06:35 03/07/24 06:35 Labs: Abnormal Lab Results - Last 24 Hours (Table) 03/06/24 03/06/24 03/07/24 Range/Units 16:23 19:57 05:51 RBC (3.80-5.40) m/uL Hgb (11.4-16.0) gm/dL Hct (34.0-46.0) % Sodium (137-145) mmol/L Carbon Dioxide (22-30) mmol/L BUN (7-17) mg/dL Creatinine (0.52-1.04) mg/dL POC Glucose (mg/dL) 236 H 298 H 136 H (70-110) mg/dL Calcium (8.4-10.2) mg/dL 03/07/24 03/07/24 03/07/24 Range/Units 06:35 06:35 11:34 RBC 2.73 L (3.80-5.40) m/uL Hgb 8.4 L (11.4-16.0) gm/dL Hct 26.8 L (34.0-46.0) % Sodium 129 L (137-145) mmol/L Carbon Dioxide 18 L (22-30) mmol/L BUN 88 H (7-17) mg/dL Creatinine 4.97 H (0.52-1.04) mg/dL POC Glucose (mg/dL) 186 H (70-110) mg/dL Calcium 8.2 L (8.4-10.2) mg/dL Assessment and Plan Assessment: 1. Acute kidney injury secondary to ATN secondary to cardiorenal syndrome. Creatinine at 4.97 today. Creatinine as low as 0.98 dated March 01, 2022. No hydronephrosis noted on kidney ultrasound. Serologies negative. renal function has not improved much and patient remains significantly volume overloaded. I will proceed with renal replacement therapy. Discussed with patient and she is agreeable. 2. Acute on chronic systolic CHF with ejection fraction of 20 to 25% with moderate to severe mitral regurgitation and mild pulmonary hypertension. 3. Volume overload. 4. Anemia. Iron deficiency noted. Status post IV iron. On Aranesp. GI following. Status post blood transfusion this admission. 5. Metabolic acidosis secondary to acute kidney injury. On oral bicarb. Stable. 6. Hypervolemic hyponatremia. Also component of hypertonicity from hyperglycemia. Better. 7. Urinary retention status post Saldaña catheter placement. On Flomax. 8. Status post coronary artery bypass surgery x 4 on 02/26/2024 Plan: continue current dose of IV Bumex. proceed with dialysis catheter placement and we will plan for first treatment of hemodialysis in a.m. Add Aranesp Add Flomax
--- NOTE | 2024-03-07 16:34 | P.GSCN ---
History of Present Illness Consult date: 03/07/24 History of present illness: Patient is a 58-year-old female who initially came in with issues of ongoing chest pain and subsequently was found to have had cardiac ischemia requiring coronary artery bypass. She has been in the ICU and under monitoring has been having worsening of her renal function despite adequate appearing urine output. Given this she was recommended to undergo dialysis Past Medical History Past Medical History: Coronary Artery Disease (CAD), Chest Pain / Angina, Heart Failure, COPD, CVA/TIA, Diabetes Mellitus, Fibromyalgia, GERD/Reflux, Hyperlipidemia, Hypertension, Liver Disease, Myocardial Infarction (OH), Osteoarthritis (OA), Renal Disease, Thyroid Disorder Additional Past Medical History / Comment(s): NEUROPATHY BILATERAL FEET, DDD NECK AND LOWER BACK, hiatal hernia, states no need for BP med anymore(gets orthostatic hypotension-has "medtronic heart loop monitor"), hx hepatitis as a kid, hx fractrured left wrist, hx stroke 03/03/22-problems with balance since. History of Any Multi-Drug Resistant Organisms: MRSA Year Discovered:: 2018 MDRO Source:: stomach Past Surgical History: Adenoidectomy, Back Surgery, Bladder Surgery, Hysterectomy, Orthopedic Surgery, Tonsillectomy, Tubal Ligation Additional Past Surgical History / Comment(s): Debridement right foot, PICC line placed and later removed, bladder suspension, exploratory laparotomy, right great toe amputation, pins right in foot, cataracts removed, left wrist ORIF, loop heart monitor placed 02/2022. Past Anesthesia/Blood Transfusion Reactions: No Reported Reaction, Motion Sickness Additional Past Anesthesia/Blood Transfusion Reaction / Comm: . Type of Cardiac Device: Loop Past Psychological History: Anxiety, Depression Smoking Status: Former smoker Past Alcohol Use History: Occasional Past Drug Use History: Marijuana, Methamphetamine Additional Drug Use History / Comment(s): States that she last used methamphetamine 2 months ago - Past Family History Sister(s) Family Medical History: Coronary Artery Disease (CAD) Mother Family Medical History: Pulmonary Embolus Additional Family Medical History / Comment(s): . Father Additional Family Medical History / Comment(s): at 26yrs old--accident at work Medications and Allergies Home Medications Medication Instructions Recorded Confirmed Type Levothyroxine Sodium [Synthroid] 175 mcg PO DAILY 02/02/22 02/06/24 History Acetaminophen Tab [Tylenol] 650 mg PO BID PRN 02/06/24 02/06/24 History Albuterol Nebulized [Ventolin 2.5 mg INHALATION RT-TID PRN 02/06/24 02/06/24 History Nebulized] Atorvastatin [Lipitor] 20 mg PO HS 02/06/24 02/06/24 History Ciclesonide [Alvesco] 1 puff INHALATION RT-BID 02/06/24 02/06/24 History Insulin Glargine [Lantus Vial] 8 unit SQ BID 02/06/24 02/06/24 History Insulin Regular [humuLIN R] 2 units SQ TID PRN 02/06/24 02/06/24 History Insulin Regular [humuLIN R] See Protocol SQ QID 02/06/24 02/06/24 History Ondansetron Hcl 2mg/Ml Injection 4 mg INJ ONCE PRN 02/06/24 02/06/24 History Ondansetron [Zofran] 4 mg PO BID PRN 02/06/24 02/06/24 History traZODone HCL [Desyrel] 50 mg PO HS 02/09/24 02/09/24 History Allergies Allergy/AdvReac Type Severity Reaction Status Date / Time Sulfa (Sulfonamide Allergy see comment Verified 02/06/24 13:59 Antibiotics) Surgical - Exam Vital Signs Temp Pulse Resp BP Pulse Ox 97.6 F 95 18 103/56 97 02/06/24 11:55 02/06/24 11:55 02/06/24 11:55 02/06/24 11:55 02/06/24 11:55 General is a pleasant cooperative female in no acute distress. Sternal dressings in place. Bilateral mediastinal chest tubes. Abdomen is soft. Multiple bullae on the lateral portions of the leg. Mild edema to the bilateral lower extremities. Results - Labs 03/07/24 06:35 03/07/24 06:35 Abnormal Lab Results - Last 24 Hours (Table) 03/06/24 03/07/24 03/07/24 Range/Units 19:57 05:51 06:35 RBC 2.73 L (3.80-5.40) m/uL Hgb 8.4 L (11.4-16.0) gm/dL Hct 26.8 L (34.0-46.0) % Sodium (137-145) mmol/L Carbon Dioxide (22-30) mmol/L BUN (7-17) mg/dL Creatinine (0.52-1.04) mg/dL POC Glucose (mg/dL) 298 H 136 H (70-110) mg/dL Calcium (8.4-10.2) mg/dL 03/07/24 03/07/24 Range/Units 06:35 11:34 RBC (3.80-5.40) m/uL Hgb (11.4-16.0) gm/dL Hct (34.0-46.0) % Sodium 129 L (137-145) mmol/L Carbon Dioxide 18 L (22-30) mmol/L BUN 88 H (7-17) mg/dL Creatinine 4.97 H (0.52-1.04) mg/dL POC Glucose (mg/dL) 186 H (70-110) mg/dL Calcium 8.2 L (8.4-10.2) mg/dL Diabetes panel 03/07/24 Range/Units 06:35 Sodium 129 L (137-145) mmol/L Potassium 4.5 (3.5-5.1) mmol/L Chloride 102 (98-107) mmol/L Carbon Dioxide 18 L (22-30) mmol/L BUN 88 H (7-17) mg/dL Creatinine 4.97 H (0.52-1.04) mg/dL Glucose 99 (74-99) mg/dL Calcium 8.2 L (8.4-10.2) mg/dL Calcium panel 03/07/24 Range/Units 06:35 Calcium 8.2 L (8.4-10.2) mg/dL Pituitary panel 03/07/24 Range/Units 06:35 Sodium 129 L (137-145) mmol/L Potassium 4.5 (3.5-5.1) mmol/L Chloride 102 (98-107) mmol/L Carbon Dioxide 18 L (22-30) mmol/L BUN 88 H (7-17) mg/dL Creatinine 4.97 H (0.52-1.04) mg/dL Glucose 99 (74-99) mg/dL Calcium 8.2 L (8.4-10.2) mg/dL Adrenal panel 03/07/24 Range/Units 06:35 Sodium 129 L (137-145) mmol/L Potassium 4.5 (3.5-5.1) mmol/L Chloride 102 (98-107) mmol/L Carbon Dioxide 18 L (22-30) mmol/L BUN 88 H (7-17) mg/dL Creatinine 4.97 H (0.52-1.04) mg/dL Glucose 99 (74-99) mg/dL Calcium 8.2 L (8.4-10.2) mg/dL Assessment and Plan Assessment: Acute kidney injury, need for dialysis Plan: Will plan to go forward with femoral temporary dialysis catheter. Risk and benefits discussed. Patient seems understands and willing to proceed.
--- NOTE | 2024-03-07 16:35 | P.OP ---
Date of Procedure: 03/07/24 Description of Procedure: SURGEON: Shauna Saldaña DO SENIOR UNDERWRITER: None PREOPERATIVE DIAGNOSIS: Acute kidney injury, need for dialysis POSTOPERATIVE DIAGNOSIS: Same OPERATION: Ultrasound-guided right common femoral vein access, placement of central venous catheter for dialysis DESCRIPTION OF PROCEDURE: The groin was prepped and draped in usual sterile fashion. A preprocedure timeout was performed, all parties were in agreement. An ultrasound was utilized and the right common femoral vein was identified. It was patent and compressible. The skin overlying the vein was anesthetized with 1% lidocaine plain. A multipurpose needle was utilized and the femoral vein was accessed under ultrasound guidance on first attempt with return of dark venous, nonpulsatile blood. The guidewire was passed easily. Serial dilation was performed of the subcutaneous tissues. The catheter was placed and secured with suture. It aspirated and flushed freely. A dressing was applied. The patient tolerated the procedure well.
[2024-03-07 17:19] LABS: Glucose,Whole Blood 193 mg/dL (70-110)
[2024-03-07] MEDS: DARBEPOETIN ALFA 40 MCG/0.4 ML SYRINGE SQ SCH (17:36)
[2024-03-07] MEDS: HEPARIN SODIUM 1,000 UN/ML (10ML VL) MISCELLANE ONE (17:37)
[2024-03-07] MEDS: TAMSULOSIN 0.4 MG CAP.ER.24H PO SCH (17:38)
[2024-03-07] MEDS ORDERED: NYSTATIN 100,000 UNIT/GM POWD 15 GM TOPICAL PRN (18:44)
--- NOTE | 2024-03-07 19:51 | P.PN ---
Subjective Progress Note Date: 03/07/24 This is a pleasant 58 years old female with past medical history of multiple medical problems as below She has been incarcerated for 52 days, there is officer at bedside. Patient presents because of shortness of breath and exertional dyspnea has for the last 2 days, she states she hears herself wheezing when she lies down. Currently she is breathing quietly. She is complaining for mild chest pain on the left side, nonradiating nonspecific, feels much better now and very mild. She has occasional cough but no phlegm. Also she is complaining from upset stomach but no diarrhea or vomiting She complains from decreased urination but no dysuria or urgency. She has mild headache feels generally weak but no dizziness or blurry vision. She used to smoke half pack per day before she got incarcerated No alcohol or illicit drugs. She follow-up with her choirmaster Dr. Donal Herrera and county sheriff Dr. Babb who examined her about 2 months ago where she has some mild ulcer In the bottom of her right total This morning patient has low-grade fever 100.2 She is also mildly tachypneic around 22 She is saturating 93% on 2 L oxygen via nasal cannula Labs reviewed showing hemoglobin of 7.7, rest of CBC is unremarkable BMP liver enzymes not elevated. INR 0.9. Lactic 0.9 proBNP is elevated 25 100 EKG showing sinus rhythm at [address]-T changes, no left bundle branch block 02/17/2024 --Patient is seen and evaluated in room at bedside; remains on Lasix drip, remains in negative fluid balance - patient underwent cardiac catheterization which revealed severe triple-vessel coronary artery disease and now she is being evaluated for possible myocardial revascularization. Patient remains on oxygen at 2 L/min and her O2 sats is 97%, her PFT showed severe obstructive lung disease, however not severe enough to not consider myocardial revascularization if the patient is cleared by other consultants including nephrology and cardiology. Patient has been a smoker over the years, she had at least a [id number] smoking history. Remind you patient had a PFT with chest x-ray still showing evidence of pulmonary edema which will definitely compromise her PFT will likely reflect more restriction than obstructive lung disease. WBC count today is 4.9 hemoglobin 7.7 electrolytes are normal BUN is 85 creatinine 3.59 02/18/2024 Patient is seen and evaluated in room at bedside; sitting up in bed; ports stabl e breathing - patient underwent AFRICA which revealed aortic valve tricuspid and functioning normally. Mitral valve structurally normal with mild central secondary mitral regurgitation. Pulmonary vein flow has systolic dominance. Tricuspid valve appears to be normal with mild tricuspid regurgitation. Intra-atrial septum is intact with no evidence of PFO. Left atrial appendage free of clot. LV EF 35% with global hypokinesis. -- Patient is followed by cardiothoracic surgery and also nephrology. Nephrology not recommending any indication or need for hemodialysis. Patient remains on Lasix drip per nephrology. Patient has a negative fluid balance of 1322. Repeat blood work reveals hemoglobin is 7.9. BUN 82 creatinine 3.39. Mild elevation in liver function test. -Plan for surgery once clinically optimized 02/19/2024 Patient looks more awake than admission, sitting up in bed. Care Home officers at bedside Mentation at baseline. She talks freely. Denies chest pain or dyspnea at rest On presentation patient was found acute CHF and non-STEMI, workup showing triple-vessel coronary artery disease and patient will require bypass procedure with cardiothoracic surgery team on the case once medically optimized. Patient currently with fluid overload on Lasix drip, on admission it was 5 mg/h, currently increased to 10 mg/h. She is making around 1 L of urine output by yesterday. Saldaña catheter in place. She is also on aspirin 81 mg Hemoglobin 8.5, creatinine 3.3 compared to 2.7 on admission with baseline 0.9- 1.2. Liver enzymes mildly elevated since admission. 02/20/2024 [facility] for an NSTEMI. Workup showing severe triple-vessel coronary artery disease currently being evaluated by cardiothoracic surgery team for possible cardiac bypass procedure. However she needs optimization and she is currently kept on IV Lasix 10 mg, creatinine went up 3.3 today. Engineering And Development Director recommended to continue with Lasix drip still tomorrow Patient diabetic, she is on Levemir 8 units twice daily, she is developing episodes of hypoglycemia we will going to lower the dose to 6 units twice daily She is also on aspirin 325 mg 02/21/2024 Patient continues to improve today, she is more energetic, less dyspneic Lasix drip switched to IV Lasix 60 mg twice daily Cardiothoracic surgery team with plan for valve replacement surgery on this coming Sunday 02/25 Sugars better controlled with no hyperglycemia on Levemir 6 units twice daily 02/22/2024 Patient breathing is stable, denies chest pain No new complaint Will go check breathing tomorrow Plan for cardiac surgery on Monday02/23/2024 Patient awake alert She feels more weak today Creatinine is up Plan for cardiac surgery early next week 02/24/2024 Patient feels weak No chest pain or dyspnea Patient anticipates surgery on Monday staff weapons officer at bedside 02/25/2024 Patient awake alert looks comfortable Generally weak Creatinine stable around 3.2 Plan for bypass cardiac surgery tomorrow, patient is agreeable to the current plan 02/26/2024 Patient is seen in follow-up today [facility] Patient currently n.p.o. and preop. Will await surgical report. 02/27/2024 Patient is seen in follow-up this morning currently in the ICU with multiple medical consultations following. Patient is status post bypass yesterday currently maintained on 4 L via nasal cannula. Patient is reporting some shortness of breath although biggest concern is severe nausea. Patient is maintained on Reglan and Zofran as needed. Will make Reglan scheduled. Patient did have mediastinal chest tube removed and was taken off balloon pump most recently this morning. Patient continues on insulin drip and will continue monitoring sugars closely continue with current regimen and will transition off insulin drip once patient nausea is improved and tolerating diet. Patient is afebrile at this time. 02/28/2024 Patient is seen in follow-up today currently sitting up in the chair tolerating ice chips. Patient reports continues with intermittent nausea although significantly improved. Patient remains on 2 L and has been working on incentive spirometer. Encouraged at least 10 times every hour while awake. Patient was on insulin drip with history of diabetes and being transition to sliding scale. Patient was given a dose of long-acting and will make twice daily and recommend monitoring Accu-Cheks before meals and at bedtime and 2 AM for tight glycemic control. Kidney functions are stable with nephrology following. 02/29/2024 Patient is seen in follow-up continues in the ICU with multiple medical consultations following. Patient is currently hypotensive medications being adjusted and patient is receiving albumin. Patient reports to feeling exhausted and not sleeping very well. Patient's blood sugars being adjusted and using sliding scale. Continue with Levemir twice daily and will adjust accordingly. Blood sugars have been on the lower side and not requiring long-acting. Patient not eating much and continues with some nausea. 03/01/2024 Patient is seen in follow-up in the ICU currently sitting up in the chair. Patient remains on dopamine and also has been started on milrinone. Patient continues with some nausea although able to tolerate a little more intake and blood sugars have been elevated during the day will increase long-acting and continue with sliding scale and Accu-Cheks before meals and at bedtime. Patient continues with chest tubes as well as swans catheter at this time. Patient has been encouraged to continue using incentive spirometer at least 10 times every hour while awake. Recommend PT/OT therapy daily as patient is significantly weak and has had prolonged hospitalization. 03/04/2024 Patient is seen this morning and continues to be in the ICU with multiple medical consultations following. Patient continues with indwelling Saldaña catheter monitoring output closely as kidney functions remain elevated. Nephrology is following and discussing possible need for renal replacement therapy. Cardiology following and Imdur is being added. Patient continues with chest tubes and continued volume overload noted on imaging. Patient continues on oxygen via nasal and appears pale, will order CBC. Transfuse if 7 or less. 03/05/2024 Patient is seen in follow-up today continues in the ICU with medical consultations following. Patient is receiving a PICC line and also maintained on milrinone. Patient continues on IV Bumex as well with nephrology following having worsening kidney functions with a creatinine of 4.68 and a BUN of 78. Sodium on the lower side at 131. Magnesium within normal limits at 1.9. Blood sugars have been more elevated and will monitor closely with Accu-Cheks before meals and at bedtime as well as 2 AM and adjust insulins accordingly. Patient continues on 1 to 2 L and has been attempting to remove oxygen maintaining oxygen saturations of 90%. Encouraged to increase activity as tolerated and continued incentive spirometer use. 03/06/2024 Patient is seen this morning in the ICU currently sitting up in the chair continues with chest tubes and significant output noted. Patient maintained on IV Bumex with nephrology following discussing possible renal replacement. Patient's urine output has increased and improved and being monitored daily. Recommend follow-up labs in the a.m. Continue to monitor blood sugars and will titrate accordingly and adjust as needed. Encouraged oral intake as patient continues to report not much of an appetite. Patient appears pale and exhausted. Continued encouragement of incentive spirometer at least 10 times every hour while awake. 03/07/2024 Patient is seen in follow-up in the ICU with nephrology following closely and vascular surgery being consulted for dialysis catheter and patient will undergo renal replacement therapy. Patient had indwelling Saldaña catheter removed although was not voiding. Recommend monitoring strict intake and output. Pat ient continues with chest tubes. Patient is afebrile denies chest pain or worsening shortness of breath. Patient continues to report weakness and not much of an appetite. Patient is agreeable to dialysis and will follow-up with repeat labs. Review of systems: Constitutional: reports of fatigue today, no fever, or chills Cardiovascular: reports of chest wall pain Respiratory: reports of shortness of breath with exertion, occasional cough GI: reports of intermittent nausea and improving, no vomiting, or diarrhea, not much of an appetite : reports of decreased urinary output Neurovascular: reports of generalized weakness All medications have been reviewed Active Medications Acetaminophen (Acetaminophen Tab 325 Mg Tab) 650 mg PO Q4HR PRN PRN Reason: Fever and/ or Pain Hydrocodone Bitart/Acetaminophen (Hydrocodone/Apap 5-325mg 1 Each Tab) 1 each PO Q4HR PRN PRN Reason: Breakthrough Pain Last Admin: 03/07/24 18:48 Dose: 1 each Albuterol/Ipratropium (Ipratropium-Albuterol 3 Ml Neb) 3 ml INHALATION RT-Q2H PRN PRN Reason: Shortness Of Breath Or Wheezing Amiodarone HCl (Amiodarone 200 Mg Tab) 200 mg PO BID ON LICENSE OF [facility] Last Admin: 03/07/24 08:52 Dose: 200 mg Aspirin (Aspirin 325 Mg Tab) 325 mg PO DAILY ON LICENSE OF [facility] Last Admin: 03/07/24 08:51 Dose: 325 mg Atorvastatin Calcium (Atorvastatin 40 Mg Tab) 40 mg PO DAILY ON LICENSE OF [facility] Last Admin: 03/07/24 08:51 Dose: 40 mg Bisacodyl (Bisacodyl 10 Mg Supp) 10 mg RECTAL DAILY PRN PRN Reason: Constipation Budesonide/Formoterol Fumarate (Symbicort 160-4.5 Mcg Inhaler) 2 puff INHALATION RT-BID ON LICENSE OF [facility] Last Admin: 03/07/24 19:35 Dose: 2 puff Bumetanide (Bumetanide 0.25 Mg/Ml 10 Ml Vial) 4 mg IV Q12HR ON LICENSE OF [facility] Last Admin: 03/07/24 08:54 Dose: 4 mg Clopidogrel Bisulfate (Clopidogrel 75 Mg Tab) 75 mg PO DAILY ON LICENSE OF [facility] Last Admin: 03/07/24 08:52 Dose: 75 mg Darbepoetin Arnaud (Darbepoetin Arnaud 40 Mcg/0.4 Ml Syringe) 40 mcg SQ Q7D ON LICENSE OF [facility] Last Admin: 03/07/24 17:36 Dose: 40 mcg Dextrose/Water (Dextrose 50% Syringe 50 Ml) 25 ml IVP PER PROTOCOL PRN; Protocol PRN Reason: Hypoglycemia Dextrose/Water (Dextrose 50% Syringe 50 Ml) 50 ml IVP PER PROTOCOL PRN; Protocol PRN Reason: Hypoglycemia Heparin Sodium (Porcine) (Heparin Sodium,Porcine 5,000 Unit/Ml 1 Ml Vial) 5,000 unit SQ Q8HR ON LICENSE OF [facility] Last Admin: 03/07/24 17:37 Dose: 5,000 unit Hydralazine HCl (Hydralazine Hcl 10 Mg Tab) 40 mg PO Q6H ON LICENSE OF [facility] Last Admin: 03/07/24 17:38 Dose: 40 mg Amiodarone HCl 150 mg/ (Dextrose/Water) 103 mls @ 618 mls/hr IV .Q10M PRN PRN Reason: A.FIB/FLUTTER Milrinone Lactate/Dextrose 20 (mg/ IV Solution) 100 mls @ 2.397 mls/hr IV .Q24H ON LICENSE OF [facility] Last Admin: 03/07/24 13:54 Dose: 0.1 mcg/kg/min, 2.397 mls/hr Insulin Aspart (Insulin Aspart (Novolog) 100 Unit/Ml Vial) 0 unit SQ ACHS ON LICENSE OF [facility]; Protocol Last Admin: 03/07/24 17:36 Dose: 2 unit Insulin Detemir (Insulin Detemir (Levemir) 100 Unit/Ml Syr) 20 unit SQ SABI LY@0700 ON LICENSE OF [facility] Insulin Detemir (Insulin Detemir (Levemir) 100 Unit/Ml Syr) 10 unit SQ HS ON LICENSE OF [facility] Isosorbide Dinitrate (Isosorbide Dinitrate 10 Mg Tab) 30 mg PO QID ON LICENSE OF [facility] Last Admin: 03/07/24 17:37 Dose: 30 mg Levothyroxine Sodium (Levothyroxine 88 Mcg Tab) 176 mcg PO DAILY@0630 ON LICENSE OF [facility] Last Admin: 03/07/24 06:35 Dose: 176 mcg Metoprolol Tartrate (Metoprolol Tartrate 12.5 Mg Tab) 12.5 mg PO BID ON LICENSE OF [facility] Last Admin: 03/07/24 08:52 Dose: 12.5 mg Miscellaneous Information (Magnesium Replacement Protocol 1 Each Misc) 1 each MISCELLANE DAILY PRN; Protocol PRN Reason: Per Protocol Miscellaneous Information (Potassium Replacement Protocol 1 Each Misc) 1 each MISCELLANE DAILY PRN; Protocol PRN Reason: Per Protocol Miscellaneous Information (Phosphorus Replacement Protoco 1 Each Misc) 1 each MISCELLANE DAILY PRN; Protocol PRN Reason: Per Protocol Nystatin (Nystatin 100,000 Unit/Gm Powd 15 Gm) 1 applic TOPICAL TID PRN; Protocol PRN Reason: Perineal Discomfort Ondansetron HCl (Ondansetron 4 Mg/2 Ml Vial) 4 mg IVP Q6HR PRN PRN Reason: Nausea And Vomiting Last Admin: 03/05/24 20:57 Dose: 4 mg Pantoprazole Sodium (Pantoprazole 40 Mg Tablet) 40 mg PO AC-BRKFST ON LICENSE OF [facility] Last Admin: 03/07/24 06:35 Dose: 40 mg Senna/Docusate Sodium (Sennosides-Docusate Sodium 1 Each Tab) 2 each PO [facility] Last Admin: 03/06/24 20:29 Dose: 2 each Sodium Bicarbonate (Sodium Bicarbonate Tab 650 Mg Tab) 650 mg PO BID ON LICENSE OF [facility] Last Admin: 03/07/24 08:52 Dose: 650 mg Sodium Chloride (Sodium Chloride 0.9% Flush 10 Ml Syringe) 10 ml IV BID ON LICENSE OF [facility] Last Admin: 03/07/24 08:53 Dose: 10 ml Tamsulosin HCl (Tamsulosin 0.4 Mg Cap.Er.24h) 0.4 mg PO PC-SUPPER ON LICENSE OF [facility] Last Admin: 03/07/24 17:38 Dose: 0.4 mg Trazodone HCl (Trazodone Hcl 50 Mg Tab) 50 mg PO [facility] Last Admin: 03/06/24 20:29 Dose: 50 mg Physical exam: GENERAL: The patient is alert and oriented x3, pale, currently sitting up in the chair well developed, thin built. Generally weak, elderly appearing, pale, ill- appearing HEENT: Pupils are round and equally reacting to light. EOMI. No scleral icterus. No conjunctival pallor. Normocephalic, atraumatic. No pharyngeal erythema. No thyromegaly. CARDIOVASCULAR: S1 and S2 muffled, heart hugger noted, chest tubes noted PULMONARY: Diminished breath sounds bilaterally, faint crackles. Tachypnea ABDOMEN: Soft, nontender, nondistended, normoactive bowel sounds. No palpable organomegaly. MUSCULOSKELETAL: No joint swelling or deformity. EXTREMITIES: No cyanosis, clubbing, 1+ bilateral pitting leg edema. NEUROLOGICAL: Gross neurological examination did not reveal any focal deficits. Diffusely weak SKIN: No rashes. no petechiae. Pale Assessment: Acute systolic CHF exacerbation, ejection fraction: 20 to 25% non-STEMI, ekg New left bundle branch block, secondary to triple-vessel coronary artery disease status post CABG Mild hypoxic respiratory failure, improving Acute kidney injury on chronic kidney disease, nonoliguric, with worsening function requiring hemodialysis 03/07/2024 Acute on chronic anemia of chronic disease Acute urinary tract infection, urine culture showing skin or genital kwesi. Resolved Diabetes mellitus, type II, uncontrolled with hyper and hypoglycemia Continued ongoing nicotine dependence Chronic ulcers of the right big toe Chronic kidney disease stage II with acute kidney injury GI prophylaxis DVT prophylaxis Full code Plan: Patient is continued in the ICU with multiple medical consultations following. Nephrology following and continues to have worsening kidney functions and vascular surgery is consulted for dialysis catheter placement Patient continues with minimal urinary output recommend to monitor strict intake and output Blood sugars have been up and down and will adjust long-acting insulin and continue with sliding scale as well. Encouraged oral intake Encouraged incentive spirometer use at least 10 times every hour while awake, continue heart hugger Recommend increased activity as tolerated Patient continues with chest tubes with drainage noted and continues with volume overload Patient continues on milrinone and cardiology is following closely as well We will continue to follow with cardiothoracic's during hospitalization. Thank you kindly for this consultation. Recommend PT/OT therapy once more stable and patient will likely need rehab on discharge for prolonged hospitalization and significant weakness. Due to multiple complex medical issues, overall prognosis is guarded The impression and plan of care has been dictated by Mandy Granda, Nurse Practitioner as directed. Dr. Andrzej MD I have performed a history and examination and MDM of this patient, discussed the same with the dictator, and agree with the dictator's assessment and plan as written ,documented as a scribe. Based on total visit time, I have performed more than 50% of the visit. Objective - Vital Signs Vital signs: Vital Signs Temp 97.7 F 03/07/24 16:00 Pulse 58 L 03/07/24 19:00 Resp 12 03/07/24 19:00 BP 116/57 03/07/24 19:00 Pulse Ox 98 03/07/24 16:00 FiO2 40 02/26/24 16:39 Intake & Output 03/07/24 03/07/24 03/08/24 06:59 18:59 06:59 Intake Total 720 970 10 Output Total 1450 1678 830 Balance -730 -708 -820 Weight 89.5 kg Intake: IV 120 120 10 0.9 sodium chloride 120 120 10 Intake, IV Titration 100 Amount Milrinone-D5w Pmx 20 mg 100 In Dextrose/Water 1 100ml .bag @ 0.1 MCG/KG/MIN 2. 397 mls/hr IV .Q24H ON LICENSE OF [facility] Rx#:[id number] Oral 500 850 Output: Chest Tube Drainage 450 480 Left Pleural Chest Tube 350 280 Right Pleural Chest Tube 100 200 Urine 1000 600 350 Straight 500 600 Post Void Residual 1078 ABP, PAP, CO, CI - Last Documented Arterial Blood Pressure 139/47 Pulmonary Artery Pressure 36/20 Cardiac Output 4.2 Cardiac Index 2.3 - Labs CBC & Chem 7: 03/07/24 06:35 03/07/24 06:35 Labs: Abnormal Lab Results - Last 24 Hours (Table) 03/06/24 03/07/24 03/07/24 Range/Units 19:57 05:51 06:35 RBC 2.73 L (3.80-5.40) m/uL Hgb 8.4 L (11.4-16.0) gm/dL Hct 26.8 L (34.0-46.0) % Sodium (137-145) mmol/L Carbon Dioxide (22-30) mmol/L BUN (7-17) mg/dL Creatinine (0.52-1.04) mg/dL POC Glucose (mg/dL) 298 H 136 H (70-110) mg/dL Calcium (8.4-10.2) mg/dL 03/07/24 03/07/24 03/07/24 Range/Units 06:35 11:34 17:18 RBC (3.80-5.40) m/uL Hgb (11.4-16.0) gm/dL Hct (34.0-46.0) % Sodium 129 L (137-145) mmol/L Carbon Dioxide 18 L (22-30) mmol/L BUN 88 H (7-17) mg/dL Creatinine 4.97 H (0.52-1.04) mg/dL POC Glucose (mg/dL) 186 H 193 H (70-110) mg/dL Calcium 8.2 L (8.4-10.2) mg/dL
[2024-03-07 20:30] LABS: Glucose,Whole Blood 224 mg/dL (70-110)
[2024-03-07] MEDS: INSULIN DETEMIR (LEVEMIR) 100 UNIT/ML SYR SQ SCH (21:09)
[2024-03-08 06:14] LABS: Glucose,Whole Blood 59 mg/dL (70-110)
[2024-03-08 06:32] LABS: HCT 27.9 % (34.0-46.0); HGB 8.6 gm/dL (11.4-16.0); Hypochromasia Moderate; MCHC 30.8 g/dL (31.0-37.0); MCV 97.4 fL (80.0-100.0); Macrocytosis Slight; Mean Platelet Volume 7.9; Platelet Count 353 k/uL (150-450); RBC 2.86 m/uL (3.80-5.40); RDW 15.1 % (11.5-15.5); WBC 5.5 k/uL (3.8-10.6)
[2024-03-08 06:33] LABS: Glucose,Whole Blood 74 mg/dL (70-110)
[2024-03-08 06:44] LABS: African American GFR (CKD) 10 (>60 ml/min/1.73 sqM); Anion Gap 9 mmol/L; Blood Urea Nitrogen 89 mg/dL (7-17); Carbon Dioxide 19 mmol/L (22-30); Chloride 101 mmol/L (98-107); Glucose 50 mg/dL (74-99); Non-African American GFR(CKD) 9 (>60 ml/min/1.73 sqM); Potassium 4.2 mmol/L (3.5-5.1); Sodium 129 mmol/L (137-145)
--- NOTE | 2024-03-08 08:08 | XR ---
EXAMINATION TYPE: XR chest 1V portable DATE OF EXAM: 03/08/2024 COMPARISON: 03/07/2020 HISTORY: Chest tube placement TECHNIQUE: Single frontal view of the chest is obtained. FINDINGS: Small biapical pneumothoraces measuring approximately 5%. Bilateral chest tubes. Diffuse i nterstitial pattern with tiny pleural effusion and basilar infiltrate. Post median sternotomy. [place]-G anz catheter stable. Osseous structures unchanged. Right-sided PICC line seen with the tip overlying the SVC. Atrial appendage. IMPRESSION: 1. There now are small bilateral apical pneumothoraces measuring 5%. 2 stable diffuse pleural-parenchymal changes. Correlate for CHF.
--- NOTE | 2024-03-08 08:28 | P.PN ---
Subjective Progress Note Date: 03/08/24 Principal diagnosis: Triple-vessel coronary artery disease, non-STEMI this admission, acute systolic heart failure with reduced ejection fraction 35%, new onset ischemic cardiomyop athy, mild mitral valve regurgitation on [place], acute on chronic kidney disease, acute anemia. History of hypertension, hyperlipidemia, hypothyroid, diabetes mellitus, CVA, hepatitis as a child, CKD stage IV, previous tobacco dependence with recent cessation, severe COPD, previous methamphetamine use with recent cessation, family history of coronary artery disease. POD #11 Off-pump CABG x 4 with sequential left internal mammary artery to left anterior descending coronary artery and diagonal coronary artery, reverse saphenous vein graft's to the posterior descending coronary artery and second obtuse marginal coronary artery, closure of the left atrial appendage with 35mm AtriCure clip, placement of percutaneous right femoral intra-aortic balloon pump, transesophageal echocardiogram performed by anesthesia. POD #1 ultrasound-guided right common femoral vein access and placement of central venous catheter for dialysis, acute kidney injury secondary to ATN secondary to cardiorenal syndrome. Postoperative acute blood loss anemia, expected secondary to hemodilution and preoperative anemia. Postoperative paroxysmal atrial fibrillation, a known common occurrence after cardiac surgery, not a complication. The patient was seen and examined in follow-up today March 08, 2024 at her bedside in the intensive care unit. She is currently sitting up to the bedside chair, is awake, alert, oriented x 3 and is in no acute apparent distress. Denies any complaints of pain or shortness of breath at this time, although is complaining of some generalized weakness and feeling as though her legs are heavy. She underwent a bedside ultrasound-guided right common femoral vein access with pl acement of central venous catheter for dialysis yesterday which was placed by Dr. Saldaña from vascular surgery. Bedside telemetry is showing normal sinus rhythm heart rate 62 bpm. Oxygen saturations are 95% on room air and she is achieving 1250 mL on her incentive spirometry with encouragement. Saldaña catheter was placed yesterday for urine retention with 460 mL output in the last 8 hours. Patient was also started on some Flomax yesterday 0.4 mg p.o. daily by nephrology for some urine retention. Left and right pleural chest tubes remain in place to waterseal. No air leak is present. Left pleural chest tube draining thin serosanguineous drainage with 250 mL output in the last 8 hours and 540 mL output in the last 24 hours. Right pleural chest tube drained 25 mL output in the last 8 hours and 290 mL output in the last 24 hours. Primacor drip remains infusing at 0.1 mcg/kg/min. Chest x-ray and laboratory results were reviewed. Objective - Vital Signs Vital signs: Vital Signs Temp 97.8 F 03/08/24 04:00 Pulse 62 03/08/24 07:00 Resp 13 03/08/24 07:00 BP 118/53 03/08/24 07:00 Pulse Ox 94 L 03/08/24 07:00 FiO2 40 02/26/24 16:39 Intake & Output 03/07/24 03/08/24 03/08/24 18:59 06:59 18:59 Intake Total 970 500 50 Output Total 1678 1415 375 Balance -708 -915 -325 Weight 89.6 kg Intake: IV 120 280 50 0.9 sodium chloride 120 280 50 Oral 850 220 Output: Chest Tube Drainage 480 275 Left Pleural Chest Tube 280 250 Right Pleural Chest Tube 200 25 Urine 600 935 100 Straight 600 Post Void Residual 1078 Other: Voiding Method Indwelling Catheter ABP, PAP, CO, CI - Last Documented Arterial Blood Pressure 139/47 Pulmonary Artery Pressure 36/20 Cardiac Output 4.2 Cardiac Index 2.3 - Exam CONSTITUTIONAL: Sitting up to the bedside chair in the intensive care unit, appears comfortable, cooperative, no apparent acute distress. HEENT: Neck is supple, no JVD, no lymphadenopathy. RESPIRATORY: Lungs sounds essentially clear throughout, diminished to her bilateral bases. Respirations are symmetrical and nonlabored. Currently on room air with oxygen saturations 95%. Able to achieve 1250 mL on her incentive spirometry. Strong cough. CARDIOVASCULAR: Regular rhythm and rate. S1 and S2 present, negative for S3, gallop or murmur. Bedside telemetry showing normal sinus rhythm heart rate 62 bpm. Sternum is stable. Palpable peripheral pulses bilaterally. No calf pain or tenderness noted. Heart hugger in place with patient demonstrating appropriate use. Knee-high CRISTOBAL hose and sequential compression devices in place to his bilateral lower extremities. GASTROINTESTINAL: Abdomen soft, nontender, nondistended. Active bowel sounds present 4 quadrants. Passing flatus. No guarding or rigidity. Tolerating diet. Bowel movement on 03/05/2024. GENITOURINARY: Saldaña catheter in place for accurate I's and O's and urine retention. Urine output 460 mL in the last 8 hours. Right common femoral vein access, placement of central venous catheter for dialysis. INTEGUMENTARY: Skin is warm and dry with no evidence of clubbing or cyanosis. Midline sternal incision clean dry and well approximated, covered with dry intact dressing. Left lower extremity EVH sites well approximated without redness or drainage. NEUROLOGIC: Cranial nerves II through XII intact. No focal deficits. MUSKULOSKELETAL: Able to move all extremities, strength equal bilaterally, generalized weakness. PSYCHIATRIC: Alert and oriented to person place and time, appropriate affect, intact judgment and insight. INVASIVE LINES AND TUBES: Left/right pleural chest tubes present and are to waterseal, no air leaks present. Left pleural chest tube drained 250 mL of thin serosanguineous drainage in the last 8 hours and 540 mL in the last 24 hours. Right pleural chest tube drained 25 mL of thin serosanguineous drainage in the last 8 hours and 290 mL in the last 24 hours. - Allied health notes Allied health notes reviewed: nursing - Labs CBC & Chem 7: 03/08/24 06:13 03/08/24 06:13 Labs: Abnormal Lab Results - Last 24 Hours (Table) 03/07/24 03/07/24 03/07/24 Range/Units 11:34 17:18 20:29 RBC (3.80-5.40) m/uL Hgb (11.4-16.0) gm/dL Hct (34.0-46.0) % MCHC (31.0-37.0) g/dL Sodium (137-145) mmol/L Carbon Dioxide (22-30) mmol/L BUN (7-17) mg/dL Creatinine (0.52-1.04) mg/dL Glucose (74-99) mg/dL POC Glucose (mg/dL) 186 H 193 H 224 H (70-110) mg/dL Calcium (8.4-10.2) mg/dL 03/08/24 03/08/24 03/08/24 Range/Units 06:12 06:13 06:13 RBC 2.86 L (3.80-5.40) m/uL Hgb 8.6 L (11.4-16.0) gm/dL Hct 27.9 L (34.0-46.0) % MCHC 30.8 L (31.0-37.0) g/dL Sodium 129 L (137-145) mmol/L Carbon Dioxide 19 L (22-30) mmol/L BUN 89 H (7-17) mg/dL Creatinine 5.09 H (0.52-1.04) mg/dL Glucose 50 L (74-99) mg/dL POC Glucose (mg/dL) 59 L (70-110) mg/dL Calcium 8.0 L (8.4-10.2) mg/dL - Imaging and Cardiology Chest x-ray: report reviewed, image reviewed Assessment and Plan Assessment: Triple-vessel coronary artery disease, non-STEMI this admission, status post four-vessel off-pump coronary artery bypass grafting surgery Acute systolic heart failure with reduced ejection fraction, 20-25%, 35% on [place] New onset ischemic cardiomyopathy Moderate to severe mitral regurgitation on transthoracic echocardiogram, mild mitral regurgitation on [place] Acute on chronic kidney disease secondary to ATN secondary to cardiorenal syndrome, status post placement of ultrasound-guided right common femoral vein access, placement of central venous catheter for dialysis Acute anemia Hypertension Hyperlipidemia, treated, cholesterol 150, LDL 72.8 Hypothyroid, TSH 1.73 Diabetes mellitus, hemoglobin A1c 7.1% CVA Hepatitis as a child Chronic kidney disease Previous tobacco dependence with recent cessation Severe COPD, preoperative FEV1 27% of predicted Previous methamphetamine use with recent cessation Family history of coronary artery disease with sister having multiple stents Postoperative acute blood loss anemia, expected given hemodilution and preoperative anemia Postoperative paroxysmal atrial fibrillation, a known common occurrence after cardiac surgery, not a complication, status post ligation of the left atrial appendage, currently normal sinus rhythm Plan: Continue to maximize medical therapy with aspirin, statin, Plavix, beta-alex. Will increase beta-alex as tolerated. Continue hydralazine for afterload reduction. Discontinue Primacor drip. Continue oral amiodarone for A-fib prophylaxis, weekly taper, decreased to 200 mg BID March 05, 2024. Encourage incentive spirometry use 10 times every hour while awake. Bronchodilators per pulmonology. Increase activity, ambulate as tolerated. PT/OT/cardiac rehab following. Will monitor daily labs and chest x-rays. Electrolyte replacement per protocol. GI/DVT prophylaxis. Hemodialysis recommendations per nephrology. Ultrasound-guided right common femoral vein access, placement of central venous catheter for dialysis completed by Dr. Saldaña yesterday March 07, 2024. Pain control per current medication regimen. Avoid Toradol due to kidney failure. Insulin management per internal medicine. Preoperative hemoglobin A1c 7.1%. Continue pleural chest tubes for another 24 hours due to high output, placed to water seal March 06, 2024. Saldaña catheter in place for accurate I's and O's and urine retention. Continue Flomax 0.4 mg p.o. daily. Continue to record strict accurate intake and output. Daily weights. More recommendations to follow based on patient's clinical course. Time with Patient: Greater than 30
[2024-03-08] MEDS: INSULIN DETEMIR (LEVEMIR) 100 UNIT/ML SYR SQ SCH (08:47)
--- NOTE | 2024-03-08 09:38 | P.PN ---
Subjective patient is seen for follow-up for acute kidney injury. Primacor discontinued today. Urine output 1.5 L for 24 hours. Saldaña catheter was removed but had to be replaced due to persistent urine retention. Currently maintained on IV Bumex every 12 hours. serum creatinine increased to 5.0 mg/dL today. No complaints of shortness of breath but complaining of increased lower extremity swelling. Objective - Vital Signs Vital signs: Vital Signs Temp 97.7 F 03/08/24 08:00 Pulse 61 03/08/24 08:00 Resp 16 03/08/24 08:00 BP 108/53 03/08/24 08:00 Pulse Ox 94 L 03/08/24 08:27 FiO2 40 02/26/24 16:39 Intake & Output 03/07/24 03/08/24 03/08/24 18:59 06:59 18:59 Intake Total 970 500 60 Output Total 1678 1415 465 Balance -708 -915 -405 Weight 89.6 kg Intake: IV 120 280 60 0.9 sodium chloride 120 280 60 Oral 850 220 Output: Chest Tube Drainage 480 325 Left Pleural Chest Tube 280 260 Right Pleural Chest Tube 200 65 Urine 600 935 140 Straight 600 Post Void Residual 1078 Other: Voiding Method Indwelling Catheter ABP, PAP, CO, CI - Last Documented Arterial Blood Pressure 139/47 Pulmonary Artery Pressure 36/20 Cardiac Output 4.2 Cardiac Index 2.3 - Exam patient is awake, comfortable, no acute distress Alert oriented 3 Examination of the heart S1 and S2 Examination of the lungs bilateral breath sounds are heard, decreased breath sounds at the bases Abdomen is soft nontender Examination of lower extremities shows 2+ edema. CAGE CLERK exam grossly intact - Labs CBC & Chem 7: 03/08/24 06:13 03/08/24 06:13 Labs: Abnormal Lab Results - Last 24 Hours (Table) 03/07/24 03/07/24 03/07/24 Range/Units 11:34 17:18 20:29 RBC (3.80-5.40) m/uL Hgb (11.4-16.0) gm/dL Hct (34.0-46.0) % MCHC (31.0-37.0) g/dL Sodium (137-145) mmol/L Carbon Dioxide (22-30) mmol/L BUN (7-17) mg/dL Creatinine (0.52-1.04) mg/dL Glucose (74-99) mg/dL POC Glucose (mg/dL) 186 H 193 H 224 H (70-110) mg/dL Calcium (8.4-10.2) mg/dL 03/08/24 03/08/24 03/08/24 Range/Units 06:12 06:13 06:13 RBC 2.86 L (3.80-5.40) m/uL Hgb 8.6 L (11.4-16.0) gm/dL Hct 27.9 L (34.0-46.0) % MCHC 30.8 L (31.0-37.0) g/dL Sodium 129 L (137-145) mmol/L Carbon Dioxide 19 L (22-30) mmol/L BUN 89 H (7-17) mg/dL Creatinine 5.09 H (0.52-1.04) mg/dL Glucose 50 L (74-99) mg/dL POC Glucose (mg/dL) 59 L (70-110) mg/dL Calcium 8.0 L (8.4-10.2) mg/dL Assessment and Plan Assessment: 1. Acute kidney injury secondary to ATN secondary to cardiorenal syndrome. Creatinine at 4.97 today. Creatinine as low as 0.98 dated March 01, 2022. No hydronephrosis noted on kidney ultrasound. Serologies negative. renal function has not improved much and patient remains significantly volume overloaded. I will proceed with renal replacement therapy. Discussed with patient and she is agreeable. 2. Acute on chronic systolic CHF with ejection fraction of 20 to 25% with moderate to severe mitral regurgitation and mild pulmonary hypertension. 3. Volume overload. 4. Anemia. Iron deficiency noted. Status post IV iron. On Aranesp. GI following. Status post blood transfusion this admission. 5. Metabolic acidosis secondary to acute kidney injury. On oral bicarb. Stable. 6. Hypervolemic hyponatremia. Also component of hypertonicity from hyperglycemia. Better. 7. Urinary retention status post Saldaña catheter placement. On Flomax. 8. Status post coronary artery bypass surgery x 4 on 02/26/2024 Plan: continue current dose of IV Bumex. proceed with dialysis catheter placement and we will plan for first treatment of hemodialysis today. Repeat hemodialysis in a.m. continue Aranesp continue Flomax and continue with Saldaña catheter as well.
--- NOTE | 2024-03-08 10:02 | P.PN ---
Subjective Progress Note Date: 03/08/24 Principal diagnosis: Acute kidney injury Patient seen and examined today as a follow-up. She remains in the ICU. She is up at the bedside chair. Chest tubes in place. She had a right femoral vein temporary HD catheter placed yesterday. She did denies any bleeding from access site. She has yet to get hemodialysis however it is planned for today. Objective - Vital Signs Vital signs: Vital Signs Temp 97.8 F 03/08/24 04:00 Pulse 62 03/08/24 07:00 Resp 13 03/08/24 07:00 BP 118/53 03/08/24 07:00 Pulse Ox 94 L 03/08/24 07:00 FiO2 40 02/26/24 16:39 Intake & Output 03/07/24 03/08/24 03/08/24 18:59 06:59 18:59 Intake Total 970 500 50 Output Total 1678 1415 375 Balance -708 -915 -325 Weight 89.6 kg Intake: IV 120 280 50 0.9 sodium chloride 120 280 50 Oral 850 220 Output: Chest Tube Drainage 480 275 Left Pleural Chest Tube 280 250 Right Pleural Chest Tube 200 25 Urine 600 935 100 Straight 600 Post Void Residual 1078 Other: Voiding Method Indwelling Catheter ABP, PAP, CO, CI - Last Documented Arterial Blood Pressure 139/47 Pulmonary Artery Pressure 36/20 Cardiac Output 4.2 Cardiac Index 2.3 - Exam General appearance: The patient is alert, oriented, appears in no acute distress. HET: Head is normocephalic and atraumatic. Pupils are equal and reactive. Neck: Supple. Heart: Regular. Lungs: Equal expansion, normal respiratory effort. Chest tubes in place. Abdomen: Soft, nontender, nondistended. Extremities: Normal skin color and turgor. Right groin HD catheter intact without any bleeding or hematoma. Neurological: Alert and oriented. - Labs CBC & Chem 7: 03/08/24 06:13 03/08/24 06:13 Labs: Abnormal Lab Results - Last 24 Hours (Table) 03/07/24 03/07/24 03/07/24 Range/Units 11:34 17:18 20:29 RBC (3.80-5.40) m/uL Hgb (11.4-16.0) gm/dL Hct (34.0-46.0) % MCHC (31.0-37.0) g/dL Sodium (137-145) mmol/L Carbon Dioxide (22-30) mmol/L BUN (7-17) mg/dL Creatinine (0.52-1.04) mg/dL Glucose (74-99) mg/dL POC Glucose (mg/dL) 186 H 193 H 224 H (70-110) mg/dL Calcium (8.4-10.2) mg/dL 03/08/24 03/08/24 03/08/24 Range/Units 06:12 06:13 06:13 RBC 2.86 L (3.80-5.40) m/uL Hgb 8.6 L (11.4-16.0) gm/dL Hct 27.9 L (34.0-46.0) % MCHC 30.8 L (31.0-37.0) g/dL Sodium 129 L (137-145) mmol/L Carbon Dioxide 19 L (22-30) mmol/L BUN 89 H (7-17) mg/dL Creatinine 5.09 H (0.52-1.04) mg/dL Glucose 50 L (74-99) mg/dL POC Glucose (mg/dL) 59 L (70-110) mg/dL Calcium 8.0 L (8.4-10.2) mg/dL Assessment and Plan Assessment: Acute kidney injury, need for dialysis Plan: 1. Right femoral temporary dialysis catheter placed 2. Dialysis per recommendations from nephrology 3. Will be on standby if further needed Thank you for this consultation. The impression and plan of care has been dictated as directed. Dr. Saldaña I performed a history and examination of this patient, discussed the same with the dictator. I agree with the dictator's note ,documented as a scribe. Any additional findings or plans will be noted.
[2024-03-08 11:27] LABS: Glucose,Whole Blood 164 mg/dL (70-110)
--- NOTE | 2024-03-08 13:36 | P.PN ---
Subjective Progress Note Date: 03/08/24 Principal diagnosis: Acute hypoxic respiratory failure secondary to acute systolic congestive heart failure and ischemic cardiomyopathy Patient is a 58-year-old white female with past medical history significant for COPD, chronic ongoing tobacco dependence, CVA/TIA, diabetes mellitus, hyperlipidemia, hypertension, hypothyroidism, fibromyalgia, GERD, among other things. Patient presented back on 02/06/2024 from [facility] with chief complaint of increased lower extremity swelling. She states that she first noted the swelling back in December,. It is progressively worsened, she states she has gained approximately 20 pounds over the last 2 months. Approximately 10 days ago she was awoken at night with substernal chest pain. Nonradiating. With associated shortness of breath and sweating. Lasted up to 15 minutes. She is also had a nonproductive cough. She was noted to be febrile this admission. She is empirically covered on antibiotics. On arrival to the emergency room, she was noted to have elevated troponins of 1.29, 1.76, and 2.2. EKG showed normal sinus rhythm with left bundle branch block, without any other acute ischemic changes. No previous EKG for comparison. She was started on heparin infusion per protocol. She also was on a Nitropaste. Echocardiogram showed a severely impaired left ventricular ejection fraction of 20 to 25%, and moderate to severe mitral regurgitation. Today, she was started on a Lasix infusion at 5 mg/h. Heparin infusion was stopped as the patient is anemic. Patient denies any acute blood loss. No vaginal bleeding. No juan blood in stool. No melena. No nausea or vomiting or hematic emesis. Last colonoscopy was reportedly around 10 years ago. She is currently lying in bed, on 2 L/min nasal cannula. Chest x-ray on admission shows diffuse interstitial edema as well as bilateral consolidation and small effusions. Findings consistent with congestive heart failure. NT proBNP was elevated 25,000. Patient not making much urine despite Lasix infusion. Patient did have 1 episode of fever during her admission with a Tmax of 100.2 F. She was empirically she was empirically placed on Rocephin. Negative for influenza, RSV, COVID. Most recent BMP from today: Sodium 130, potassium 5.1, chloride 104, serum bicarb down to 17, BUN 63, creatinine worsening and 3.34, glucose 229. LFTs mildly elevated. Hepatitis panel nonreactive. Overall, hemodynamically stable. On 02/08/2024, seen the patient for a follow-up. The patient is currently on 3 L of oxygen by nasal cannula with a pulse ox of 94%. She should be able to wean down. She is on Lasix drip at 5 mg an hour and the patient is producing adequ ate amount of urine output. Her fluid balance is negative. As mentioned, the patient is post non-ST segment ovation myocardial infarction the patient is being seen by cardiology. The patient has severe cardiomyopathy with impaired left ventricular ejection fraction. Her blood work from today shows a BUN of 66 with a creatinine of 3.41 and this is consistent with an acute on chronic kidney injury. Sodium levels at 129, potassium is at 4.4 with a WBC count of 6.3 and a hemoglobin of 7.4. The patient is on IV Rocephin as an empiric antibiotic coverage. She is currently afebrile. The patient is being seen by cardiology. The patient will be kept on IV Lasix. Not a candidate for any invasive cardiac workup due to her acute on top of chronic kidney injury at this point in time. Her comorbidities are multiple. Unsure if she does have underlying coronary artery disease. Nevertheless, she has previous history of CVA, diabetes mellitus type 2, hypothyroidism and CHF. She was in [facility] for being arrested due to possession of amphetamines. Vasculitis workup was negative including a n egative EDSON and a negative P and C ANCA. Hepatitis profile was also negative. On 02/10/2024, the patient is being seen for a follow-up. No new complaints. No significant shortness of breath at rest. Remains on Lasix drip. Producing adequate amount of urine output. Blood work from today was noticed that the patient has a white cell count of 6 with a hemoglobin of 7.2 and a PET scan at 360. BUN 69 with a creatinine of 3.4 and a sodium levels at 129. The patient is being seen by cardiology and nephrology addition. She remains on Lasix drip which will be increased up to 10 mg an hour. Not a candidate for further cardiac catheterization based on underlying renal dysfunction. 02/11/2024, the patient is being seen for a follow-up. No new complaints. Monitor for improvement in her condition. She remains on 2 L of oxygen by nasal cannula. Fluid balance is -90 cc over the past 24 hours. Suboptimal response to diuretics and the patient remains on Lasix at 10 mg an hour. BUN 71 with a creatinine of 3.7, slightly worse compared to yesterday. Sodium is at 131. The patient denies having any chest pain. No significant hypotension. Remains on aspirin. Remains on metoprolol 25 mg p.o. twice a day. Cardiology on the case. She has significant cardiomyopathy. She is post acute non-STEMI. Not a candidate for cardiac catheterization due to renal impairment. The patient is seen today February 12, 2024 in follow-up on the selective care unit. She is currently sitting up in bed. Awake and alert in no acute distress. She is maintaining O2 saturation in the 90s on 3 L nasal cannula. She is afebrile. Hemodynamically stable. Today's chest x-ray reviewed reveals diffuse bilateral infiltrates with small effusion or early congestive heart failure. Hemoglobin 6.7. 1 unit of packed blood cells have been ordered. Platelets 362. White count 6.1. Sodium 131. Potassium 4.2. Bicarb 21. BUN 80. Creatinine 3.89. Glucose 286. She remains on. Antibiotics in the form of ceftriaxone. Remains on a Lasix drip at 5 mg an hour. Currently in a -178 mL balance. The patient is seen today February 13, 2024 in follow-up on the selective care unit. She is awake and alert in no acute distress. Sitting up in bed. Blood and urine cultures revealed no growth. White count 6.2. Hemoglobin 7.4. Platelets 01/05/1978. Sodium 133. Potassium 3.9. Bicarb 21. BUN 83. Creatinine 3.60. Glucose 154. She remains on a Lasix drip currently at 5 mg/h. She remains on a heparin drip. Receiving sodium bicarb tablets. Continued on bronchodilators. Continued on antibiotics in the form of ceftriaxone. She is currently in a negative balance. Voided 1 L today. The patient is seen today February 14, 2024 in follow-up on the selective care unit. She is currently sitting up in bed. Awake and alert in no acute distress. She is maintaining good O2 saturations in the 90s on 3 L/min per nasal cannula. She is afebrile. Hemodynamically stable. Follow-up chest x-ray continues to show diffuse bilateral infiltrate with small effusions. She is status post 1 unit of packed red blood cells this admission. Last hemoglobin 7.7. Sodium 135. Potassium 4.6. Bicarb 20. BUN 87. Creatinine 3.55. Glucose 358. She is continued on bronchodilators. Antibiotics in form of ceftriaxone. She remains on a Lasix drip at 10 mg/h. Receiving sodium bicarb tablets. Currently -688 mL balance. Nephrology is following. The patient is seen today February 15, 2024 in follow-up on the selective care unit. She is currently sitting up in bed awake and alert in no acute distress. She is maintaining O2 saturations in the mid 90s on 2 L/min per nasal cannula. She is afebrile. Hemodynamically stable. White count 6.8. Hemoglobin 8.6. Platelets 438. Sodium 135. Potassium 4.0. Bicarb 21. BUN 84. Creatinine 3.41. Glucose 171. She remains on a Lasix drip at 10 mg/h. Continued on a heparin drip. Plan to -1 L balance. Stress testing today reveals a large area of fixed defect involving all segments of the myocardium suggestive of remote ischemia. Could not exclude a tiny area of stress-induced reversibility within the apex. Reduced wall motion activity with ejection fraction of only 21%. Patient was seen and examined today on 02/16/2024 patient is feeling better today, continues to diurese with a Lasix drip, remains in negative fluid balance, patient underwent cardiac catheterization today and she was found to have severe triple-vessel coronary artery disease, now she is being evaluated by surgery, patient does have severe LV dysfunction, she is definitely high surgical risk, but no absolute contraindication to surgery.Basic metabolic profile is normal BUN is 85 creatinine 3.58 however the patient may require hemodialysis, and she will need nephrology clearance she will also need a bedside spirometry/FEV1 for preoperative pulmonary clearance in the meantime we will continue diuretics/Lasix drip Patient was reevaluated today on 02/17/2024, remains on Lasix drip, remains in negative fluid balance, patient is very well aware that she had abnormal cardiac catheterization and now she is being evaluated for possible myocardial revascularization. Patient remains on oxygen at 2 L/min and her O2 sats is 97%, her PFT showed severe obstructive lung disease, however not severe enough to not consider myocardial revascularization if the patient is cleared by other con sultants including nephrology and cardiology. Patient has been a smoker over the years, she had at least a [id number]-[id number] smoking history. Remind you patient had a PFT with chest x-ray still showing evidence of pulmonary edema which will definitely compromise her PFT will likely reflect more restriction than obstructive lung disease. WBC count today is 4.9 hemoglobin 7.7 electrolytes are normal BUN is 85 creatinine 3.59 Patient was reevaluated today on 02/18/2024, remains on Lasix drip, 10 mg/h, remains in constant negative fluid balance, chest x-ray today is definitely showing improvement but nonetheless her pulmonary edema is not completely resolved. Patient was being considered for CABG however the plan is presently on hold because of her overall pulmonary status and possibly the patient could benefit from more optimization of her congestive heart failure. In the meantime she seems to be doing better with the Lasix drip. Patient is also maintained on bronchodilators for her underlying COPD. Patient was seen today on 03/05/2024, patient is now postoperative day #8Off-pump CABG x 4 with sequential left internal mammary artery to left anterior descending coronary artery and diagonal coronary artery, reverse saphenous vein graft to the posterior descending coronary artery and second obtuse marginal coronary artery, closure of the left atrial appendage with 35mm AtriCure clip, placement of percutaneous right femoral intra-aortic balloon pump, transesophageal echocardiogram performed by anesthesia. And is on room air, sitting at the bedside recliner, is in the ICU, not in any distress. Have fluid buildup and bipedal edema. Renal functioning is a bit worse, but the patient is making urine, remains on Primacor at 0.25 mcg/kg/min, intermittently on diuretics, no plans for hemodialysis at this point yet. To have both pleural chest tubes in place, giving over 1000 cc on her incentive spirometry, patient is ambulating with assistance. Chest x-ray minimal bilateral biapical pneumothoraces, and it it showed mild congestive heart failure. WBC is 5.8 hemoglobin 8.5 electrolytes are normal BUN is 78 creatinine 4.68 he is on oral amiodarone. He is also on aspirin and statins. Well as Plavix. For diuretics, patient is receiving Bumex 2 mg IV push every 12 hours for patient is also receiving bicarb 650 mg p.o. twice daily. Remains on GI and DVT prophylaxis. Patient was reevaluated today on 03/06/2024, she is now postoperative day #9. Patient remains in the ICU, patient is on room air, not in any distress. Continues to have bilateral pleural chest tubes, draining mostly clear fluid. And amount of drainage has been significant over the last 24 hours. Hence no plans to remove the chest tubes at this point in time. The left-sided chest tube drained 500 cc and the right pleural chest tube drained 450 cc overnight. Patient is comfortable, achieving 1000 mL on hide incentive spirometry. She does not seem to be in any distress, remains on milrinone at 0.1 mcg/kg/min. Chest x-ray is showing significant improvement in her pulmonary edema. WBC count is 5.9 hemoglobin 8.9 basic metabolic profile is normal BUN is 83 creatinine 4.59. Continues to have bipedal edema in spite of aggressive and significant diuresis. Was reexamined today on 03/07/24, remains in the ICU, remains on room air, remains on Primacor at 0.1 mcg/kg/min, continues to have significant output from her chest tubes bilaterally. Continues to have low ejection fraction of 15 to 20% remains on Bumex 4 mg every 12 hours. Patient is comfortable, not in any distress. She is on room air. Chest x-ray is showing mild pulmonary edema. WBC count is 5.7 hemoglobin 8.4 electrolytes are normal except for sodium 129 creatinine is on the rise up to 4.97 today, bicarb is 18 Reevaluate today on 03/08/2024, patient remains in the ICU, she is undergoing hemodialysis today. Patient is on room air, remains on IV fluid at 10 cc/h, patient is now off Primacor. Today is her first hemodialysis today. This was decided upon by nephrology considering her renal functioning is getting worse. Continues to have both chest/pleural chest tubes in place, chest x-ray showed minimal bilateral apical pneumothoraces, again chest tubes are in place, there is no air leak. She does have findings suggestive of mild congestive heart failure and diffuse parenchymal changes most likely pulmonary edema related unless proven otherwise. CBC is relatively normal hemoglobin is 8.6 sodium is 129 BUN 89 creatinine 5.09 Objective - Vital Signs Vital signs: Vital Signs Temp 97.5 F L 03/08/24 12:00 Pulse 63 03/08/24 13:00 Resp 17 03/08/24 13:00 BP 112/51 03/08/24 13:00 Pulse Ox 94 L 03/08/24 13:00 FiO2 40 02/26/24 16:39 Intake & Output 03/07/24 03/08/24 03/08/24 18:59 06:59 18:59 Intake Total 970 500 100 Output Total 1678 1415 855 Balance -606 -915 -755 Weight 89.6 kg Intake: IV 120 280 100 0.9 sodium chloride 120 280 100 Oral 850 220 Output: Chest Tube Drainage 480 445 Left Pleural Chest Tube 280 320 Right Pleural Chest Tube 200 125 Urine 600 935 410 Straight 600 Post Void Residual 1078 Other: Voiding Method Indwelling Catheter Indwelling Catheter ABP, PAP, CO, CI - Last Documented Arterial Blood Pressure 139/47 Pulmonary Artery Pressure 36/20 Cardiac Output 4.2 Cardiac Index 2.3 - Exam GENERAL EXAM: Alert, 58-year-old female, in bed, on room air, not in distress, remains on room air., Undergoing hemodialysis for HEAD: Normocephalic and atraumatic EYES: Normal reaction of pupils, equal size. NOSE: Clear with pink turbinates. THROAT: No erythema or exudates. NECK: No masses, no JVD. CHEST: No chest wall deformity. LUNGS: Clear bilaterally, bilateral chest tubes are noted. CVS: S1 and S2 normal with no audible murmur, regular rhythm. No extra heart sounds ABDOMEN: No hepatosplenomegaly, active bowel sounds, no guarding or rigidity. SKIN: No rashes CENTRAL NERVOUS SYSTEM: Alert oriented x 3 no gross focal deficit EXTREMITIES: 1 + bipedal edema - Labs CBC & Chem 7: 03/08/24 06:13 03/08/24 06:13 Labs: Abnormal Lab Results - Last 24 Hours (Table) 03/07/24 03/07/24 03/08/24 Range/Units 17:18 20:29 06:12 RBC (3.80-5.40) m/uL Hgb (11.4-16.0) gm/dL Hct (34.0-46.0) % MCHC (31.0-37.0) g/dL Sodium (137-145) mmol/L Carbon Dioxide (22-30) mmol/L BUN (7-17) mg/dL Creatinine (0.52-1.04) mg/dL Glucose (74-99) mg/dL POC Glucose (mg/dL) 193 H 224 H 59 L (70-110) mg/dL Calcium (8.4-10.2) mg/dL 03/08/24 03/08/24 03/08/24 Range/Units 06:13 06:13 11:26 RBC 2.86 L (3.80-5.40) m/uL Hgb 8.6 L (11.4-16.0) gm/dL Hct 27.9 L (34.0-46.0) % MCHC 30.8 L (31.0-37.0) g/dL Sodium 129 L (137-145) mmol/L Carbon Dioxide 19 L (22-30) mmol/L BUN 89 H (7-17) mg/dL Creatinine 5.09 H (0.52-1.04) mg/dL Glucose 50 L (74-99) mg/dL POC Glucose (mg/dL) 164 H (70-110) mg/dL Calcium 8.0 L (8.4-10.2) mg/dL Assessment and Plan Assessment: Impression: Severe triple-vessel coronary artery disease based on cardiac catheterization 02/16/2024 Post CABG postoperative day #10 patient had 4 vessels off-pump CABG. Severe ischemic cardiomyopathy and LV dysfunction repeat echocardiogram continues to show LV dysfunction with ejection fraction 15 to 20%. Severe mitral valve regurgitation, on trans thoracic echocardiogram, but she had mild mitral regurgitation on [place]. Acute kidney injury, likely cardiorenal, worsening creatinine, being followed by nephrology. No plans for dialysis at this point Metabolic non-anion gap acidosis, secondary to above Chronic obstructive pulmonary disease, stable Diabetes mellitus type 1 History of hyperlipidemia History of hypertension History of CVA/TIA History of hypothyroidism History of fibromyalgia History of GERD Mildly elevated LFTs, hepatitis panel nonreactive Former tobacco smoker, 1/2 pack/day or approximately 15-year pack history Postoperative paroxysmal atrial fibrillation, expected. Severe underlying COPD Recommendation: Continue hemodialysis Continue maximal medical therapy including aspirin statin Plavix and beta- blockers Today patient is off Primacor Continue strict I's and O's and continue to monitor daily electrolytes and renal profile Continue oral amiodarone Continue GI prophylaxis and DVT prophylaxis Continue to monitor in the ICU Continue incentive spirometry Ambulate Will continue to follow Time with Patient: Less than 30
[2024-03-08 16:28] LABS: Glucose,Whole Blood 289 mg/dL (70-110)
[2024-03-08 17:15] LABS: Hepatitis B Surface AB- Quant 3.5 mIU/mL
--- NOTE | 2024-03-08 17:37 | P.PN ---
Subjective Progress Note Date: 03/08/24 This is a pleasant 58 years old female with past medical history of multiple medical problems as below She has been incarcerated for 52 days, there is officer at bedside. Patient presents because of shortness of breath and exertional dyspnea has for the last 2 days, she states she hears herself wheezing when she lies down. Currently she is breathing quietly. She is complaining for mild chest pain on the left side, nonradiating nonspecific, feels much better now and very mild. She has occasional cough but no phlegm. Also she is complaining from upset stomach but no diarrhea or vomiting She complains from decreased urination but no dysuria or urgency. She has mild headache feels generally weak but no dizziness or blurry vision. She used to smoke half pack per day before she got incarcerated No alcohol or illicit drugs. She follow-up with her cardiac care nurse Dr. Donal Herrera and steel wool machine operator Dr. Babb who examined her about 2 months ago where she has some mild ulcer In the bottom of her right total This morning patient has low-grade fever 100.2 She is also mildly tachypneic around 22 She is saturating 93% on 2 L oxygen via nasal cannula Labs reviewed showing hemoglobin of 7.7, rest of CBC is unremarkable BMP liver enzymes not elevated. INR 0.9. Lactic 0.9 proBNP is elevated 25 100 EKG showing sinus rhythm at [address]-T changes, no left bundle branch block 02/17/2024 --Patient is seen and evaluated in room at bedside; remains on Lasix drip, remains in negative fluid balance - patient underwent cardiac catheterization which revealed severe triple-vessel coronary artery disease and now she is being evaluated for possible myocardial revascularization. Patient remains on oxygen at 2 L/min and her O2 sats is 97%, her PFT showed severe obstructive lung disease, however not severe enough to not consider myocardial revascularization if the patient is cleared by other consultants including nephrology and cardiology. Patient has been a smoker over the years, she had at least a 17-tnmm-xalf smoking history. Remind you patient had a PFT with chest x-ray still showing evidence of pulmonary edema which will definitely compromise her PFT will likely reflect more restriction than obstructive lung disease. WBC count today is 4.9 hemoglobin 7.7 electrolytes are normal BUN is 85 creatinine 3.59 02/18/2024 Patient is seen and evaluated in room at bedside; sitting up in bed; ports stabl e breathing - patient underwent AFRICA which revealed aortic valve tricuspid and functioning normally. Mitral valve structurally normal with mild central secondary mitral regurgitation. Pulmonary vein flow has systolic dominance. Tricuspid valve appears to be normal with mild tricuspid regurgitation. Intra-atrial septum is intact with no evidence of PFO. Left atrial appendage free of clot. LV EF 35% with global hypokinesis. -- Patient is followed by cardiothoracic surgery and also nephrology. Nephrology not recommending any indication or need for hemodialysis. Patient remains on Lasix drip per nephrology. Patient has a negative fluid balance of 1322. Repeat blood work reveals hemoglobin is 7.9. BUN 82 creatinine 3.39. Mild elevation in liver function test. -Plan for surgery once clinically optimized 02/19/2024 Patient looks more awake than admission, sitting up in bed. Long Term officers at bedside Mentation at baseline. She talks freely. Denies chest pain or dyspnea at rest On presentation patient was found acute CHF and non-STEMI, workup showing triple-vessel coronary artery disease and patient will require bypass procedure with cardiothoracic surgery team on the case once medically optimized. Patient currently with fluid overload on Lasix drip, on admission it was 5 mg/h, currently increased to 10 mg/h. She is making around 1 L of urine output by yesterday. Saldaña catheter in place. She is also on aspirin 81 mg Hemoglobin 8.5, creatinine 3.3 compared to 2.7 on admission with baseline 0.9- 1.2. Liver enzymes mildly elevated since admission. 02/20/2024 Patient came from residential for an NSTEMI. Workup showing severe triple-vessel coronary artery disease currently being evaluated by cardiothoracic surgery team for possible cardiac bypass procedure. However she needs optimization and she is currently kept on IV Lasix 10 mg, creatinine went up 3.3 today. Casing In Line Feeder recommended to continue with Lasix drip still tomorrow Patient diabetic, she is on Levemir 8 units twice daily, she is developing episodes of hypoglycemia we will going to lower the dose to 6 units twice daily She is also on aspirin 325 mg 02/21/2024 Patient continues to improve today, she is more energetic, less dyspneic Lasix drip switched to IV Lasix 60 mg twice daily Cardiothoracic surgery team with plan for valve replacement surgery on this coming Sunday 02/25 Sugars better controlled with no hyperglycemia on Levemir 6 units twice daily 02/22/2024 Patient breathing is stable, denies chest pain No new complaint Will go check breathing tomorrow Plan for cardiac surgery on Monday02/23/2024 Patient awake alert She feels more weak today Creatinine is up Plan for cardiac surgery early next week 02/24/2024 Patient feels weak No chest pain or dyspnea Patient anticipates surgery on Monday equal employment opportunity officer at bedside 02/25/2024 Patient awake alert looks comfortable Generally weak Creatinine stable around 3.2 Plan for bypass cardiac surgery tomorrow, patient is agreeable to the current plan 02/26/2024 Patient is seen in follow-up today [facility] Patient currently n.p.o. and preop. Will await surgical report. 02/27/2024 Patient is seen in follow-up this morning currently in the ICU with multiple medical consultations following. Patient is status post bypass yesterday currently maintained on 4 L via nasal cannula. Patient is reporting some shortness of breath although biggest concern is severe nausea. Patient is maintained on Reglan and Zofran as needed. Will make Reglan scheduled. Patient did have mediastinal chest tube removed and was taken off balloon pump most recently this morning. Patient continues on insulin drip and will continue monitoring sugars closely continue with current regimen and will transition off insulin drip once patient nausea is improved and tolerating diet. Patient is afebrile at this time. 02/28/2024 Patient is seen in follow-up today currently sitting up in the chair tolerating ice chips. Patient reports continues with intermittent nausea although significantly improved. Patient remains on 2 L and has been working on incentive spirometer. Encouraged at least 10 times every hour while awake. Patient was on insulin drip with history of diabetes and being transition to sliding scale. Patient was given a dose of long-acting and will make twice daily and recommend monitoring Accu-Cheks before meals and at bedtime and 2 AM for tight glycemic control. Kidney functions are stable with nephrology following. 02/29/2024 Patient is seen in follow-up continues in the ICU with multiple medical consultations following. Patient is currently hypotensive medications being adjusted and patient is receiving albumin. Patient reports to feeling exhausted and not sleeping very well. Patient's blood sugars being adjusted and using sliding scale. Continue with Levemir twice daily and will adjust accordingly. Blood sugars have been on the lower side and not requiring long-acting. Patient not eating much and continues with some nausea. 03/01/2024 Patient is seen in follow-up in the ICU currently sitting up in the chair. Patient remains on dopamine and also has been started on milrinone. Patient continues with some nausea although able to tolerate a little more intake and blood sugars have been elevated during the day will increase long-acting and continue with sliding scale and Accu-Cheks before meals and at bedtime. Patient continues with chest tubes as well as swans catheter at this time. Patient has been encouraged to continue using incentive spirometer at least 10 times every hour while awake. Recommend PT/OT therapy daily as patient is significantly weak and has had prolonged hospitalization. 03/04/2024 Patient is seen this morning and continues to be in the ICU with multiple medical consultations following. Patient continues with indwelling Saldaña catheter monitoring output closely as kidney functions remain elevated. Nephrology is following and discussing possible need for renal replacement therapy. Cardiology following and Imdur is being added. Patient continues with chest tubes and continued volume overload noted on imaging. Patient continues on oxygen via nasal and appears pale, will order CBC. Transfuse if 7 or less. 03/05/2024 Patient is seen in follow-up today continues in the ICU with medical consultations following. Patient is receiving a PICC line and also maintained on milrinone. Patient continues on IV Bumex as well with nephrology following having worsening kidney functions with a creatinine of 4.68 and a BUN of 78. Sodium on the lower side at 131. Magnesium within normal limits at 1.9. Blood sugars have been more elevated and will monitor closely with Accu-Cheks before meals and at bedtime as well as 2 AM and adjust insulins accordingly. Patient continues on 1 to 2 L and has been attempting to remove oxygen maintaining oxygen saturations of 90%. Encouraged to increase activity as tolerated and continued incentive spirometer use. 03/06/2024 Patient is seen this morning in the ICU currently sitting up in the chair continues with chest tubes and significant output noted. Patient maintained on IV Bumex with nephrology following discussing possible renal replacement. Patient's urine output has increased and improved and being monitored daily. Recommend follow-up labs in the a.m. Continue to monitor blood sugars and will titrate accordingly and adjust as needed. Encouraged oral intake as patient continues to report not much of an appetite. Patient appears pale and exhausted. Continued encouragement of incentive spirometer at least 10 times every hour while awake. 03/07/2024 Patient is seen in follow-up in the ICU with nephrology following closely and vascular surgery being consulted for dialysis catheter and patient will undergo renal replacement therapy. Patient had indwelling Saldaña catheter removed although was not voiding. Recommend monitoring strict intake and output. Pat ient continues with chest tubes. Patient is afebrile denies chest pain or worsening shortness of breath. Patient continues to report weakness and not much of an appetite. Patient is agreeable to dialysis and will follow-up with repeat labs. 03/08/2024 Patient is seen in follow-up today currently laying in bed undergoing hemodialysis. Patient had vascular surgery place a dialysis catheter and c reatinine is 5. Patient also having significant retention requiring indwelling Saldaña catheter to be replaced. Recommend to continue for now. Patient having first dialysis today and will also have repeat dialysis in the a.m. per nephrology. Patient is afebrile reports continued shortness of breath with no significant worsening in lower extremity swelling. Patient is maintained on IV Bumex twice daily. Follow-up on repeat labs. Continue to monitor blood sugars closely and continue current regimen and diet. Patient continues with chest tubes as well and we will follow-up on repeat chest x-ray. Review of systems: Constitutional: reports of fatigue today, no fever, or chills Cardiovascular: reports of chest wall pain Respiratory: reports of shortness of breath with exertion, occasional cough GI: reports of intermittent nausea and improving, no vomiting, or diarrhea, not much of an appetite : reports of decreased urinary output Neurovascular: reports of generalized weakness All medications have been reviewed Active Medications Acetaminophen (Acetaminophen Tab 325 Mg Tab) 650 mg PO Q4HR PRN PRN Reason: Fever and/ or Pain Hydrocodone Bitart/Acetaminophen (Hydrocodone/Apap 5-325mg 1 Each Tab) 1 each PO Q4HR PRN PRN Reason: Breakthrough Pain Last Admin: 03/08/24 17:17 Dose: 1 each Albuterol/Ipratropium (Ipratropium-Albuterol 3 Ml Neb) 3 ml INHALATION RT-Q2H PRN PRN Reason: Shortness Of Breath Or Wheezing Amiodarone HCl (Amiodarone 200 Mg Tab) 200 mg PO BID [facility] Last Admin: 03/08/24 08:15 Dose: 200 mg Aspirin (Aspirin 325 Mg Tab) 325 mg PO DAILY [facility] Last Admin: 03/08/24 08:15 Dose: 325 mg Atorvastatin Calcium (Atorvastatin 40 Mg Tab) 40 mg PO DAILY [facility] Last Admin: 03/08/24 08:15 Dose: 40 mg Bisacodyl (Bisacodyl 10 Mg Supp) 10 mg RECTAL DAILY PRN PRN Reason: Constipation Budesonide/Formoterol Fumarate (Symbicort 160-4.5 Mcg Inhaler) 2 puff INHALATION RT-BID [facility] Last Admin: 03/08/24 08:25 Dose: 2 puff Bumetanide (Bumetanide 0.25 Mg/Ml 10 Ml Vial) 4 mg IV Q12HR [facility] Last Admin: 03/08/24 08:17 Dose: 4 mg Clopidogrel Bisulfate (Clopidogrel 75 Mg Tab) 75 mg PO DAILY [facility] Last Admin: 03/08/24 08:15 Dose: 75 mg Darbepoetin Arnaud (Darbepoetin Arnaud 40 Mcg/0.4 Ml Syringe) 40 mcg SQ Q7D [facility] Last Admin: 03/07/24 17:36 Dose: 40 mcg Dextrose/Water (Dextrose 50% Syringe 50 Ml) 25 ml IVP PER PROTOCOL PRN; Protocol PRN Reason: Hypoglycemia Dextrose/Water (Dextrose 50% Syringe 50 Ml) 50 ml IVP PER PROTOCOL PRN; Protocol PRN Reason: Hypoglycemia Heparin Sodium (Porcine) (Heparin Sodium,Porcine 5,000 Unit/Ml 1 Ml Vial) 5,000 unit SQ Q8HR [facility] Last Admin: 03/08/24 16:16 Dose: 5,000 unit Hydralazine HCl (Hydralazine Hcl 10 Mg Tab) 40 mg PO Q6H [facility] Last Admin: 03/08/24 12:53 Dose: 40 mg Amiodarone HCl 150 mg/ (Dextrose/Water) 103 mls @ 618 mls/hr IV .Q10M PRN PRN Reason: A.FIB/FLUTTER Insulin Aspart (Insulin Aspart (Novolog) 100 Unit/Ml Vial) 0 unit SQ ACHS [facility]; Protocol Last Admin: 03/08/24 16:39 Dose: 6 unit Insulin Detemir (Insulin Detemir (Levemir) 100 Unit/Ml Syr) 20 unit SQ DAILY@0700 [facility] Last Admin: 03/08/24 08:47 Dose: Not Given Insulin Detemir (Insulin Detemir (Levemir) 100 Unit/Ml Syr) [address] [facility] Last Admin: 03/07/24 21:09 Dose: 10 unit Isosorbide Dinitrate (Isosorbide Dinitrate 10 Mg Tab) 30 mg PO QID [facility] Last Admin: 03/08/24 17:15 Dose: 30 mg Levothyroxine Sodium (Levothyroxine 88 Mcg Tab) 176 mcg PO DAILY@0630 [facility] Last Admin: 03/08/24 06:26 Dose: 176 mcg Metoprolol Tartrate (Metoprolol Tartrate 12.5 Mg Tab) 12.5 mg PO BID [facility] Last Admin: 03/08/24 08:48 Dose: Not Given Miscellaneous Information (Magnesium Replacement Protocol 1 Each Misc) 1 each MISCELLANE DAILY PRN; Protocol PRN Reason: Per Protocol Miscellaneous Information (Potassium Replacement Protocol 1 Each Misc) 1 each MISCELLANE DAILY PRN; Protocol PRN Reason: Per Protocol Miscellaneous Information (Phosphorus Replacement Protoco 1 Each Misc) 1 each MISCELLANE DAILY PRN; Protocol PRN Reason: Per Protocol Nystatin (Nystatin 100,000 Unit/Gm Powd 15 Gm) 1 applic TOPICAL TID PRN; Protocol PRN Reason: Perineal Discomfort Ondansetron HCl (Ondansetron 4 Mg/2 Ml Vial) 4 mg IVP Q6HR PRN PRN Reason: Nausea And Vomiting Last Admin: 03/05/24 20:57 Dose: 4 mg Pantoprazole Sodium (Pantoprazole 40 Mg Tablet) 40 mg PO AC-BRKFST [facility] Last Admin: 03/08/24 06:27 Dose: 40 mg Senna/Docusate Sodium (Sennosides-Docusate Sodium 1 Each Tab) 2 each PO HS [facility] Last Admin: 03/07/24 21:09 Dose: 2 each Sodium Chloride (Sodium Chloride 0.9% Flush 10 Ml Syringe) 10 ml IV BID [facility] Last Admin: 03/08/24 08:17 Dose: 10 ml Tamsulosin HCl (Tamsulosin 0.4 Mg Cap.Er.24h) 0.4 mg PO PC-SUPPER [facility] Last Admin: 03/07/24 17:38 Dose: 0.4 mg Trazodone HCl (Trazodone Hcl 50 Mg Tab) 50 mg PO HS [facility] Last Admin: 03/07/24 21:09 Dose: 50 mg Physical exam: GENERAL: The patient is alert and oriented x3, pale, currently laying in bed well developed, thin built. Generally weak, elderly appearing, pale, ill- appearing HEENT: Pupils are round and equally reacting to light. EOMI. No scleral icterus. No conjunctival pallor. Normocephalic, atraumatic. No pharyngeal erythema. No thyromegaly. CARDIOVASCULAR: S1 and S2 muffled, heart hugger noted, chest tubes noted PULMONARY: Diminished breath sounds bilaterally, faint crackles. Tachypnea ABDOMEN: Soft, nontender, nondistended, normoactive bowel sounds. No palpable organomegaly. MUSCULOSKELETAL: No joint swelling or deformity. EXTREMITIES: No cyanosis, clubbing, 1+ bilateral pitting leg edema. NEUROLOGICAL: Gross neurological examination did not reveal any focal deficits. Diffusely weak SKIN: No rashes. no petechiae. Pale Assessment: Acute systolic CHF exacerbation, ejection fraction: 20 to 25% non-STEMI, ekg New left bundle branch block, secondary to triple-vessel coronary artery disease status post CABG Mild hypoxic respiratory failure, improving Acute kidney injury on chronic kidney disease, nonoliguric, with worsening function requiring hemodialysis catheter placed 03/07/2024 and hemodialysis initiated today 03/08/2024 Acute on chronic anemia of chronic disease, iron deficiency noted Acute urinary tract infection, urine culture showing skin or genital kwesi. Resolved Diabetes mellitus, type II, uncontrolled with hyper and hypoglycemia Continued ongoing nicotine dependence Chronic ulcers of the right big toe Chronic kidney disease stage II with acute kidney injury GI prophylaxis DVT prophylaxis Full code Plan: Patient is continued in the ICU with multiple medical consultations following. Nephrology following and continues to have worsening kidney functions and v ascular surgery is consulted for dialysis catheter placement. Dialysis catheter was placed on 530 and patient will be initiating hemodialysis today and have repeat dialysis in the a.m. per nephrology Patient continues with minimal urinary output recommend to monitor strict intake and output and continuing with indwelling Saldaña catheter for now Blood sugars have been up and down and will adjust long-acting insulin and continue with sliding scale as well. Encouraged oral intake Encouraged incentive spirometer use at least 10 times every hour while awake, continue heart hugger Recommend increased activity as tolerated Patient continues with chest tubes with drainage noted and continues with volume overload Patient milrinone discontinued today and cardiology is following closely as well We will continue to follow with cardiothoracic's during hospitalization. Thank you kindly for this consultation. Recommend PT/OT therapy once more stable and patient will likely need rehab on discharge for prolonged hospitalization and significant weakness. Due to multiple complex medical issues, overall prognosis is guarded The impression and plan of care has been dictated by Mandy Granda, Nurse Practitioner as directed. Dr. Andrzej MD I have performed a history and examination and MDM of this patient, discussed the same with the dictator, and agree with the dictator's assessment and plan as written ,documented as a scribe. Based on total visit time, I have performed more than 50% of the visit. Objective - Vital Signs Vital signs: Vital Signs Temp 98 F 03/08/24 16:00 Pulse 63 03/08/24 17:00 Resp 15 03/08/24 17:00 BP 107/50 03/08/24 17:00 Pulse Ox 94 L 03/08/24 17:00 FiO2 40 02/26/24 16:39 Intake & Output 03/07/24 03/08/24 03/08/24 18:59 06:59 18:59 Intake Total 970 500 610 Output Total 1678 1415 1215 Balance -708 -915 -605 Weight 89.6 kg Intake: IV 120 280 130 0.9 sodium chloride 120 280 130 Oral 850 220 480 Output: Chest Tube Drainage 480 675 Left Pleural Chest Tube 280 400 Right Pleural Chest Tube 200 275 Urine 600 935 540 Straight 600 Post Void Residual 1078 Other: Voiding Method Indwelling Catheter Indwelling Catheter ABP, PAP, CO, CI - Last Documented Arterial Blood Pressure 139/47 Pulmonary Artery Pressure 36/20 Cardiac Output 4.2 Cardiac Index 2.3 - Labs CBC & Chem 7: 03/08/24 06:13 03/08/24 06:13 Labs: Abnormal Lab Results - Last 24 Hours (Table) 03/07/24 03/08/24 03/08/24 Range/Units 20:29 06:12 06:13 RBC 2.86 L (3.80-5.40) m/uL Hgb 8.6 L (11.4-16.0) gm/dL Hct 27.9 L (34.0-46.0) % MCHC 30.8 L (31.0-37.0) g/dL Sodium (137-145) mmol/L Carbon Dioxide (22-30) mmol/L BUN (7-17) mg/dL Creatinine (0.52-1.04) mg/dL Glucose (74-99) mg/dL POC Glucose (mg/dL) 224 H 59 L (70-110) mg/dL Calcium (8.4-10.2) mg/dL 03/08/24 03/08/24 03/08/24 Range/Units 06:13 11:26 16:26 RBC (3.80-5.40) m/uL Hgb (11.4-16.0) gm/dL Hct (34.0-46.0) % MCHC (31.0-37.0) g/dL Sodium 129 L (137-145) mmol/L Carbon Dioxide 19 L (22-30) mmol/L BUN 89 H (7-17) mg/dL Creatinine 5.09 H (0.52-1.04) mg/dL Glucose 50 L (74-99) mg/dL POC Glucose (mg/dL) 164 H 289 H (70-110) mg/dL Calcium 8.0 L (8.4-10.2) mg/dL
[2024-03-08 20:06] LABS: Hepatitis B Surface Antigen Nonreactive (Nonreactive)
[2024-03-08 20:06] LABS: Glucose,Whole Blood 206 mg/dL (70-110)
[2024-03-09 06:11] LABS: Glucose,Whole Blood 212 mg/dL (70-110)
--- NOTE | 2024-03-09 06:38 | XR ---
EXAMINATION TYPE: XR chest 1V portable DATE OF EXAM: 03/09/2024 COMPARISON: 03/08/2024 HISTORY: Postop cardiac surgery TECHNIQUE: Single frontal view of the chest is obtained. FINDINGS: There is no interval change in the right-sided PICC line and bilateral chest tubes. There is no change in the small biapical pneumothoraces. No change in the pulmonary vascular congestion and probable small pleural effusions. The heart size is normal. The osseous structures are intact IMPRESSION: No change in the small biapical pneumothoraces, pulmonary vascular congestion and small effusions.
[2024-03-09 07:10] LABS: HCT 28.5 % (34.0-46.0); HGB 8.8 gm/dL (11.4-16.0); Hypochromasia Marked; MCH 30.3 pg (25.0-35.0); MCHC 30.7 g/dL (31.0-37.0); MCV 98.8 fL (80.0-100.0); Macrocytosis Slight; Mean Platelet Volume 8.2; Platelet Count 335 k/uL (150-450); RBC 2.89 m/uL (3.80-5.40); WBC 5.3 k/uL (3.8-10.6)
[2024-03-09 07:22] LABS: African American GFR (CKD) 14 (>60 ml/min/1.73 sqM); Anion Gap 5 mmol/L; Blood Urea Nitrogen 70 mg/dL (7-17); Calcium 7.8 mg/dL (8.4-10.2); Carbon Dioxide 23 mmol/L (22-30); Chloride 102 mmol/L (98-107); Glucose 193 mg/dL (74-99); Magnesium 1.9 mg/dL (1.6-2.3); Non-African American GFR(CKD) 12 (>60 ml/min/1.73 sqM); Potassium 4.4 mmol/L (3.5-5.1); Sodium 130 mmol/L (137-145)
--- NOTE | 2024-03-09 09:24 | P.PN ---
Subjective Progress Note Date: 03/09/24 Principal diagnosis: Triple-vessel coronary artery disease, non-STEMI this admission, acute systolic heart failure with reduced ejection fraction 35%, new onset ischemic cardiomyop athy, mild mitral valve regurgitation on [place], acute on chronic kidney disease, acute anemia. History of hypertension, hyperlipidemia, hypothyroid, diabetes mellitus, CVA, hepatitis as a child, CKD stage IV, previous tobacco dependence with recent cessation, severe COPD, previous methamphetamine use with recent cessation, family history of coronary artery disease. POD #12 Off-pump CABG x 4 with sequential left internal mammary artery to left anterior descending coronary artery and diagonal coronary artery, reverse saphenous vein graft's to the posterior descending coronary artery and second obtuse marginal coronary artery, closure of the left atrial appendage with 35mm AtriCure clip, placement of percutaneous right femoral intra-aortic balloon pump, transesophageal echocardiogram performed by anesthesia. POD #2 ultrasound-guided right common femoral vein access and placement of central venous catheter for dialysis, acute kidney injury secondary to ATN secondary to cardiorenal syndrome. Postoperative acute blood loss anemia, expected secondary to hemodilution and preoperative anemia. Postoperative paroxysmal atrial fibrillation, a known common occurrence after cardiac surgery, not a complication. The patient was seen and examined in follow-up today March 09, 2024 at her bedside in the intensive care unit. She is currently sitting up to the bedside chair, is awake, alert, oriented x 3 and is in no acute apparent distress. She denies any complaints of pain or shortness of breath at this time. She continues to complain of generalized weakness, reports her legs feel heavy with walking. She underwent hemodialysis yesterday with 2000 mL of ultrafiltration completed. The patient tolerated well. Oxygen saturations are 93% on room air today, she is achieving 1000 mL on her incentive spirometry with encouragement. Saldaña catheter remains in place for urine retention, urine output has been 440 mL in the last 8 hours. Her BUN/creatinine have trended down after hemodialysis just daily, BUN this morning is 70 and creatinine is 3.91. Right and left pleural chest tubes remain in place to waterseal. No air leak is present. Draining thin serosanguineous drainage. Right pleural chest tube drained 200 mL output in last 8 hours and 535 mL output in the last 24 hours. Left pleural chest tube drained 110 mL output in the last 8 hours and 380 mL output in the last 24 hours. She remains hemodynamically stable and is currently on no inotropic or pressor support. Primacor drip was discontinued yesterday. Chest x-ray and laboratory results reviewed. Objective - Vital Signs Vital signs: Vital Signs Temp 98.0 F 03/09/24 04:00 Pulse 70 03/09/24 07:00 Resp 16 03/09/24 07:00 BP 129/56 03/09/24 07:00 Pulse Ox 92 L 03/09/24 08:10 FiO2 40 02/26/24 16:39 Intake & Output 03/08/24 03/09/24 03/09/24 18:59 06:59 18:59 Intake Total 1350 Output Total 3355 855 70 Balance -2004855 -70 Weight 87.5 kg Intake: IV 130 0.9 sodium chloride 130 Oral 720 Hemodialysis 500 Output: Chest Tube Drainage 755 280 30 Left Pleural Chest Tube 420 110 Right Pleural Chest Tube 335 170 30 Urine 600 575 40 Hemodialysis 2000 Other: Voiding Method Indwelling Catheter Indwelling Catheter # Bowel Movements 1 ABP, PAP, CO, CI - Last Documented Arterial Blood Pressure 139/47 Pulmonary Artery Pressure 36/20 Cardiac Output 4.2 Cardiac Index 2.3 - Exam CONSTITUTIONAL: Sitting up to the bedside chair in the intensive care unit, appears comfortable, cooperative, no apparent acute distress. HEENT: Neck is supple, no JVD, no lymphadenopathy. RESPIRATORY: Lungs sounds essentially clear throughout, diminished to her bilateral bases. Respirations are symmetrical and nonlabored. Currently on room air with oxygen saturations 93%. Able to achieve 1000 mL on her incentive spirometry. Strong cough. CARDIOVASCULAR: Regular rhythm and rate. S1 and S2 present, negative for S3, gallop or murmur. Bedside telemetry showing normal sinus rhythm heart rate 71 bpm. Sternum is stable. Palpable peripheral pulses bilaterally. No calf pain or tenderness noted. Heart hugger in place with patient demonstrating appropriate use. Knee-high CRISTOBAL hose and sequential compression devices in place to her bilateral lower extremities. GASTROINTESTINAL: Abdomen soft, nontender, nondistended. Active bowel sounds present 4 quadrants. Passing flatus. No guarding or rigidity. Tolerating diet. Bowel movement on 03/08/2024. GENITOURINARY: Saldaña catheter in place for accurate I's and O's and urine retention. Urine output 450 mL in the last 8 hours. Right common femoral vein access, placement of central venous catheter for dialysis. 2000 mL of ultrafiltration with hemodialysis completed yesterday March 08, 2024. INTEGUMENTARY: Skin is warm and dry with no evidence of clubbing or cyanosis. Midline sternal incision clean dry and well approximated, covered with dry intact dressing. Left lower extremity EVH sites well approximated without redness or drainage. NEUROLOGIC: Cranial nerves II through XII intact. No focal deficits. MUSKULOSKELETAL: Able to move all extremities, strength equal bilaterally, generalized weakness. PSYCHIATRIC: Alert and oriented to person place and time, appropriate affect, intact judgment and insight. INVASIVE LINES AND TUBES: Left/right pleural chest tubes present and are to waterseal, no air leaks present. Left pleural chest tube drained 110 mL of thin serosanguineous drainage in the last 8 hours and 380 mL in the last 24 hours. Right pleural chest tube drained 200 mL of thin serosanguineous drainage in the last 8 hours and 535 mL in the last 24 hours. - Allied health notes Allied health notes reviewed: nursing - Labs CBC & Chem 7: 03/09/24 06:27 03/09/24 06:27 Labs: Abnormal Lab Results - Last 24 Hours (Table) 03/08/24 03/08/24 03/08/24 Range/Units 11:26 16:26 20:05 RBC (3.80-5.40) m/uL Hgb (11.4-16.0) gm/dL Hct (34.0-46.0) % MCHC (31.0-37.0) g/dL Sodium (137-145) mmol/L BUN (7-17) mg/dL Creatinine (0.52-1.04) mg/dL Glucose (74-99) mg/dL POC Glucose (mg/dL) 164 H 289 H 206 H (70-110) mg/dL Calcium (8.4-10.2) mg/dL 03/09/24 03/09/24 03/09/24 Range/Units 06:09 06:27 06:27 RBC 2.89 L (3.80-5.40) m/uL Hgb 8.8 L (11.4-16.0) gm/dL Hct 28.5 L (34.0-46.0) % MCHC 30.7 L (31.0-37.0) g/dL Sodium 130 L (137-145) mmol/L BUN 70 H (7-17) mg/dL Creatinine 3.91 H (0.52-1.04) mg/dL Glucose 193 H (74-99) mg/dL POC Glucose (mg/dL) 212 H (70-110) mg/dL Calcium 7.8 L (8.4-10.2) mg/dL - Imaging and Cardiology Chest x-ray: report reviewed, image reviewed Assessment and Plan Assessment: Triple-vessel coronary artery disease, non-STEMI this admission, status post four-vessel off-pump coronary artery bypass grafting surgery Acute systolic heart failure with reduced ejection fraction, 20-25%, 35% on [place] New onset ischemic cardiomyopathy Moderate to severe mitral regurgitation on transthoracic echocardiogram, mild mitral regurgitation on [place] Acute on chronic kidney disease secondary to ATN secondary to cardiorenal syndrome, status post placement of ultrasound-guided right common femoral vein access, placement of central venous catheter for dialysis Acute anemia Hypertension Hyperlipidemia, treated, cholesterol 150, LDL 72.8 Hypothyroid, TSH 1.73 Diabetes mellitus, hemoglobin A1c 7.1% CVA Hepatitis as a child Chronic kidney disease Previous tobacco dependence with recent cessation Severe COPD, preoperative FEV1 27% of predicted Previous methamphetamine use with recent cessation Family history of coronary artery disease with sister having multiple stents Postoperative acute blood loss anemia, expected given hemodilution and preoperative anemia Postoperative paroxysmal atrial fibrillation, a known common occurrence after cardiac surgery, not a complication, status post ligation of the left atrial appendage, currently normal sinus rhythm Plan: Continue to maximize medical therapy with aspirin, statin, Plavix, beta-alex. Will increase beta-alex as tolerated. Continue hydralazine for afterload reduction. Continue oral amiodarone for A-fib prophylaxis, weekly taper, decreased to 200 mg BID March 05, 2024. Encourage incentive spirometry use 10 times every hour while awake. [facility] hodilators per pulmonology. Increase activity, ambulate as tolerated. PT/OT/cardiac rehab following. Will monitor daily labs and chest x-rays. Electrolyte replacement per protocol. GI/DVT prophylaxis. Hemodialysis recommendations per nephrology. Hemodialysis is scheduled for today. Pain control per current medication regimen. Avoid Toradol due to kidney failure. Insulin management per internal medicine. Preoperative hemoglobin A1c 7.1%. Continue pleural chest tubes for another 24 hours due to high output, placed to water seal March 06, 2024. Saldaña catheter in place for accurate I's and O's and urine retention. Continue Flomax 0.4 mg p.o. daily. Continue to record strict accurate intake and output. Daily weights. More recommendations to follow based on patient's clinical course. Time with Patient: Greater than 30
--- NOTE | 2024-03-09 10:38 | P.PN ---
Subjective Progress Note Date: 03/09/24 Principal diagnosis: Acute hypoxic respiratory failure secondary to acute systolic congestive heart failure and ischemic cardiomyopathy Patient is a 58-year-old white female with past medical history significant for COPD, chronic ongoing tobacco dependence, CVA/TIA, diabetes mellitus, hyperlipidemia, hypertension, hypothyroidism, fibromyalgia, GERD, among other things. Patient presented back on 02/06/2024 from assisted with chief complaint of increased lower extremity swelling. She states that she first noted the swelling back in December,. It is progressively worsened, she states she has gained approximately 20 pounds over the last 2 months. Approximately 10 days ago she was awoken at night with substernal chest pain. Nonradiating. With associated shortness of breath and sweating. Lasted up to 15 minutes. She is also had a nonproductive cough. She was noted to be febrile this admission. She is empirically covered on antibiotics. On arrival to the emergency room, she was noted to have elevated troponins of 1.29, 1.76, and 2.2. EKG showed normal sinus rhythm with left bundle branch block, without any other acute ischemic changes. No previous EKG for comparison. She was started on heparin infusion per protocol. She also was on a Nitropaste. Echocardiogram showed a severely impaired left ventricular ejection fraction of 20 to 25%, and moderate to severe mitral regurgitation. Today, she was started on a Lasix infusion at 5 mg/h. Heparin infusion was stopped as the patient is anemic. Patient denies any acute blood loss. No vaginal bleeding. No juan blood in stool. No melena. No nausea or vomiting or hematic emesis. Last colonoscopy was reportedly around 10 years ago. She is currently lying in bed, on 2 L/min nasal cannula. Chest x-ray on admission shows diffuse interstitial edema as well as bilateral consolidation and small effusions. Findings consistent with congestive heart failure. NT proBNP was elevated 25,000. Patient not making much urine despite Lasix infusion. Patient did have 1 episode of fever during her admission with a Tmax of 100.2 F. She was empirically she was empirically placed on Rocephin. Negative for influenza, RSV, COVID. Most recent BMP from today: Sodium 130, potassium 5.1, chloride 104, serum bicarb down to 17, BUN 63, creatinine worsening and 3.34, glucose 229. LFTs mildly elevated. Hepatitis panel nonreactive. Overall, hemodynamically stable. On 02/08/2024, seen the patient for a follow-up. The patient is currently on 3 L of oxygen by nasal cannula with a pulse ox of 94%. She should be able to wean down. She is on Lasix drip at 5 mg an hour and the patient is producing adequ ate amount of urine output. Her fluid balance is negative. As mentioned, the patient is post non-ST segment ovation myocardial infarction the patient is being seen by cardiology. The patient has severe cardiomyopathy with impaired left ventricular ejection fraction. Her blood work from today shows a BUN of 66 with a creatinine of 3.41 and this is consistent with an acute on chronic kidney injury. Sodium levels at 129, potassium is at 4.4 with a WBC count of 6.3 and a hemoglobin of 7.4. The patient is on IV Rocephin as an empiric antibiotic coverage. She is currently afebrile. The patient is being seen by cardiology. The patient will be kept on IV Lasix. Not a candidate for any invasive cardiac workup due to her acute on top of chronic kidney injury at this point in time. Her comorbidities are multiple. Unsure if she does have underlying coronary artery disease. Nevertheless, she has previous history of CVA, diabetes mellitus type 2, hypothyroidism and CHF. She was in assisted for being arrested due to possession of amphetamines. Vasculitis workup was negative including a n egative EDSON and a negative P and C ANCA. Hepatitis profile was also negative. On 02/10/2024, the patient is being seen for a follow-up. No new complaints. No significant shortness of breath at rest. Remains on Lasix drip. Producing adequate amount of urine output. Blood work from today was noticed that the patient has a white cell count of 6 with a hemoglobin of 7.2 and a PET scan at 360. BUN 69 with a creatinine of 3.4 and a sodium levels at 129. The patient is being seen by cardiology and nephrology addition. She remains on Lasix drip which will be increased up to 10 mg an hour. Not a candidate for further cardiac catheterization based on underlying renal dysfunction. 02/11/2024, the patient is being seen for a follow-up. No new complaints. Monitor for improvement in her condition. She remains on 2 L of oxygen by nasal cannula. Fluid balance is -90 cc over the past 24 hours. Suboptimal response to diuretics and the patient remains on Lasix at 10 mg an hour. BUN 71 with a creatinine of 3.7, slightly worse compared to yesterday. Sodium is at 131. The patient denies having any chest pain. No significant hypotension. Remains on aspirin. Remains on metoprolol 25 mg p.o. twice a day. Cardiology on the case. She has significant cardiomyopathy. She is post acute non-STEMI. Not a candidate for cardiac catheterization due to renal impairment. The patient is seen today February 12, 2024 in follow-up on the selective care unit. She is currently sitting up in bed. Awake and alert in no acute distress. She is maintaining O2 saturation in the 90s on 3 L nasal cannula. She is afebrile. Hemodynamically stable. Today's chest x-ray reviewed reveals diffuse bilateral infiltrates with small effusion or early congestive heart failure. Hemoglobin 6.7. 1 unit of packed blood cells have been ordered. Platelets 362. White count 6.1. Sodium 131. Potassium 4.2. Bicarb 21. BUN 80. Creatinine 3.89. Glucose 286. She remains on. Antibiotics in the form of ceftriaxone. Remains on a Lasix drip at 5 mg an hour. Currently in a -178 mL balance. The patient is seen today February 13, 2024 in follow-up on the selective care unit. She is awake and alert in no acute distress. Sitting up in bed. Blood and urine cultures revealed no growth. White count 6.2. Hemoglobin 7.4. Platelets 01/05/1978. Sodium 133. Potassium 3.9. Bicarb 21. BUN 83. Creatinine 3.60. Glucose 154. She remains on a Lasix drip currently at 5 mg/h. She remains on a heparin drip. Receiving sodium bicarb tablets. Continued on bronchodilators. Continued on antibiotics in the form of ceftriaxone. She is currently in a negative balance. Voided 1 L today. The patient is seen today February 14, 2024 in follow-up on the selective care unit. She is currently sitting up in bed. Awake and alert in no acute distress. She is maintaining good O2 saturations in the 90s on 3 L/min per nasal cannula. She is afebrile. Hemodynamically stable. Follow-up chest x-ray continues to show diffuse bilateral infiltrate with small effusions. She is status post 1 unit of packed red blood cells this admission. Last hemoglobin 7.7. Sodium 135. Potassium 4.6. Bicarb 20. BUN 87. Creatinine 3.55. Glucose 358. She is continued on bronchodilators. Antibiotics in form of ceftriaxone. She remains on a Lasix drip at 10 mg/h. Receiving sodium bicarb tablets. Currently -688 mL balance. Nephrology is following. The patient is seen today February 15, 2024 in follow-up on the selective care unit. She is currently sitting up in bed awake and alert in no acute distress. She is maintaining O2 saturations in the mid 90s on 2 L/min per nasal cannula. She is afebrile. Hemodynamically stable. White count 6.8. Hemoglobin 8.6. Platelets 438. Sodium 135. Potassium 4.0. Bicarb 21. BUN 84. Creatinine 3.41. Glucose 171. She remains on a Lasix drip at 10 mg/h. Continued on a heparin drip. Plan to -1 L balance. Stress testing today reveals a large area of fixed defect involving all segments of the myocardium suggestive of remote ischemia. Could not exclude a tiny area of stress-induced reversibility within the apex. Reduced wall motion activity with ejection fraction of only 21%. Patient was seen and examined today on 02/16/2024 patient is feeling better today, continues to diurese with a Lasix drip, remains in negative fluid balance, patient underwent cardiac catheterization today and she was found to have severe triple-vessel coronary artery disease, now she is being evaluated by surgery, patient does have severe LV dysfunction, she is definitely high surgical risk, but no absolute contraindication to surgery.Basic metabolic profile is normal BUN is 85 creatinine 3.58 however the patient may require hemodialysis, and she will need nephrology clearance she will also need a bedside spirometry/FEV1 for preoperative pulmonary clearance in the meantime we will continue diuretics/Lasix drip Patient was reevaluated today on 02/17/2024, remains on Lasix drip, remains in negative fluid balance, patient is very well aware that she had abnormal cardiac catheterization and now she is being evaluated for possible myocardial revascularization. Patient remains on oxygen at 2 L/min and her O2 sats is 97%, her PFT showed severe obstructive lung disease, however not severe enough to not consider myocardial revascularization if the patient is cleared by other con sultants including nephrology and cardiology. Patient has been a smoker over the years, she had at least a [id number] smoking history. Remind you patient had a PFT with chest x-ray still showing evidence of pulmonary edema which will definitely compromise her PFT will likely reflect more restriction than obstructive lung disease. WBC count today is 4.9 hemoglobin 7.7 electrolytes are normal BUN is 85 creatinine 3.59 Patient was reevaluated today on 02/18/2024, remains on Lasix drip, 10 mg/h, remains in constant negative fluid balance, chest x-ray today is definitely showing improvement but nonetheless her pulmonary edema is not completely resolved. Patient was being considered for CABG however the plan is presently on hold because of her overall pulmonary status and possibly the patient could benefit from more optimization of her congestive heart failure. In the meantime she seems to be doing better with the Lasix drip. Patient is also maintained on bronchodilators for her underlying COPD. Patient was seen today on 03/05/2024, patient is now postoperative day #8Off-pump CABG x 4 with sequential left internal mammary artery to left anterior descending coronary artery and diagonal coronary artery, reverse saphenous vein graft to the posterior descending coronary artery and second obtuse marginal coronary artery, closure of the left atrial appendage with 35mm AtriCure clip, placement of percutaneous right femoral intra-aortic balloon pump, transesophageal echocardiogram performed by anesthesia. And is on room air, sitting at the bedside recliner, is in the ICU, not in any distress. Have fluid buildup and bipedal edema. Renal functioning is a bit worse, but the patient is making urine, remains on Primacor at 0.25 mcg/kg/min, intermittently on diuretics, no plans for hemodialysis at this point yet. To have both pleural chest tubes in place, giving over 1000 cc on her incentive spirometry, patient is ambulating with assistance. Chest x-ray minimal bilateral biapical pneumothoraces, and it it showed mild congestive heart failure. WBC is 5.8 hemoglobin 8.5 electrolytes are normal BUN is 78 creatinine 4.68 he is on oral amiodarone. He is also on aspirin and statins. Well as Plavix. For diuretics, patient is receiving Bumex 2 mg IV push every 12 hours for patient is also receiving bicarb 650 mg p.o. twice daily. Remains on GI and DVT prophylaxis. Patient was reevaluated today on 03/06/2024, she is now postoperative day #9. Patient remains in the ICU, patient is on room air, not in any distress. Continues to have bilateral pleural chest tubes, draining mostly clear fluid. And amount of drainage has been significant over the last 24 hours. Hence no plans to remove the chest tubes at this point in time. The left-sided chest tube drained 500 cc and the right pleural chest tube drained 450 cc overnight. Patient is comfortable, achieving 1000 mL on hide incentive spirometry. She does not seem to be in any distress, remains on milrinone at 0.1 mcg/kg/min. Chest x-ray is showing significant improvement in her pulmonary edema. WBC count is 5.9 hemoglobin 8.9 basic metabolic profile is normal BUN is 83 creatinine 4.59. Continues to have bipedal edema in spite of aggressive and significant diuresis. Was reexamined today on 03/07/24, remains in the ICU, remains on room air, remains on Primacor at 0.1 mcg/kg/min, continues to have significant output from her chest tubes bilaterally. Continues to have low ejection fraction of 15 to 20% remains on Bumex 4 mg every 12 hours. Patient is comfortable, not in any distress. She is on room air. Chest x-ray is showing mild pulmonary edema. WBC count is 5.7 hemoglobin 8.4 electrolytes are normal except for sodium 129 creatinine is on the rise up to 4.97 today, bicarb is 18 Reevaluate today on 03/08/2024, patient remains in the ICU, she is undergoing hemodialysis today. Patient is on room air, remains on IV fluid at 10 cc/h, patient is now off Primacor. Today is her first hemodialysis today. This was decided upon by nephrology considering her renal functioning is getting worse. Continues to have both chest/pleural chest tubes in place, chest x-ray showed minimal bilateral apical pneumothoraces, again chest tubes are in place, there is no air leak. She does have findings suggestive of mild congestive heart failure and diffuse parenchymal changes most likely pulmonary edema related unless proven otherwise. CBC is relatively normal hemoglobin is 8.6 sodium is 129 BUN 89 creatinine 5.09 Patient was evaluated today on 03/09/2024, in the ICU, doing fairly well, patient is on room air, continues to have bilateral chest tubes with significant amount of drainage over the last 24 hours and both chest tubes, patient also had hemodialysis yesterday and 2000 cc of ultrafiltration completed. Her right- sided chest tube put out 535 cc in the last 24 hours, and her left-sided chest tube was 380 cc in the last 24 hours. Needs to have fairly good urine output, she had 440 cc of urine in the last 8 hours. Patient is on hemodialysis, her renal functioning is improving, creatinine is down to 3.91 chest x-ray showed no change in her small tiny biapical pneumothoraces, continues to have some mild pulmonary vascular congestion WBC count is 5.3 hemoglobin 8.8 basic metabolic profile is normal BUN 70 creatinine 3.91 Objective - Vital Signs Vital signs: Vital Signs Temp 98.0 F 03/09/24 04:00 Pulse 70 03/09/24 07:00 Resp 16 03/09/24 07:00 BP 129/56 03/09/24 07:00 Pulse Ox 92 L 03/09/24 08:10 FiO2 40 02/26/24 16:39 Intake & Output 03/08/24 03/09/24 03/09/24 18:59 06:59 18:59 Intake Total 1350 Output Total 3355 855 70 Balance -2004 -855 -70 Weight 87.5 kg Intake: IV 130 0.9 sodium chloride 130 Oral 720 Hemodialysis 500 Output: Chest Tube Drainage 755 280 30 Left Pleural Chest Tube 420 110 Right Pleural Chest Tube 335 170 30 Urine 600 575 40 Hemodialysis 2000 Other: Voiding Method Indwelling Catheter Indwelling Catheter # Bowel Movements 1 ABP, PAP, CO, CI - Last Documented Arterial Blood Pressure 139/47 Pulmonary Artery Pressure 36/20 Cardiac Output 4.2 Cardiac Index 2.3 - Exam GENERAL EXAM: Alert, 58-year-old female, in bed, on room air, not in distress, remains on room air. HEAD: Normocephalic and atraumatic EYES: Normal reaction of pupils, equal size. NOSE: Clear with pink turbinates. THROAT: No erythema or exudates. NECK: No masses, no JVD. CHEST: No chest wall deformity. LUNGS: Clear bilaterally, bilateral chest tubes are noted. CVS: S1 and S2 normal with no audible murmur, regular rhythm. No extra heart sounds ABDOMEN: No hepatosplenomegaly, active bowel sounds, no guarding or rigidity. SKIN: No rashes CENTRAL NERVOUS SYSTEM: Alert oriented x 3 no gross focal deficit EXTREMITIES: 1 + bipedal edema - Labs CBC & Chem 7: 03/09/24 06:27 03/09/24 06:27 Labs: Abnormal Lab Results - Last 24 Hours (Table) 03/08/24 03/08/24 03/08/24 Range/Units 11:26 16:26 20:05 RBC (3.80-5.40) m/uL Hgb (11.4-16.0) gm/dL Hct (34.0-46.0) % MCHC (31.0-37.0) g/dL Sodium (137-145) mmol/L BUN (7-17) mg/dL Creatinine (0.52-1.04) mg/dL Glucose (74-99) mg/dL POC Glucose (mg/dL) 164 H 289 H 206 H (70-110) mg/dL Calcium (8.4-10.2) mg/dL 03/09/24 03/09/24 03/09/24 Range/Units 06:09 06:27 06:27 RBC 2.89 L (3.80-5.40) m/uL Hgb 8.8 L (11.4-16.0) gm/dL Hct 28.5 L (34.0-46.0) % MCHC 30.7 L (31.0-37.0) g/dL Sodium 130 L (137-145) mmol/L BUN 70 H (7-17) mg/dL Creatinine 3.91 H (0.52-1.04) mg/dL Glucose 193 H (74-99) mg/dL POC Glucose (mg/dL) 212 H (70-110) mg/dL Calcium 7.8 L (8.4-10.2) mg/dL Assessment and Plan Assessment: Impression: Severe triple-vessel coronary artery disease based on cardiac catheterization 02/16/2024 Post CABG postoperative day # 12 patient had 4 vessels off-pump CABG. Severe ischemic cardiomyopathy and LV dysfunction repeat echocardiogram continues to show LV dysfunction with ejection fraction 15 to 20%. Severe mitral valve regurgitation, on trans thoracic echocardiogram, but she had mild mitral regurgitation on [place]. Acute kidney injury, likely cardiorenal, worsening creatinine, being followed by nephrology. Patient had hemodialysis yesterday. Metabolic non-anion gap acidosis, secondary to above Chronic obstructive pulmonary disease, stable Diabetes mellitus type 1 History of hyperlipidemia History of hypertension History of CVA/TIA History of hypothyroidism History of fibromyalgia History of GERD Mildly elevated LFTs, hepatitis panel nonreactive Former tobacco smoker, 1/2 pack/day or approximately 15-year pack history Postoperative paroxysmal atrial fibrillation, expected. Severe underlying COPD Recommendation: Continue hemodialysis as felt necessary by nephrology on the case. Continue maximal medical therapy including aspirin statin Plavix and beta- blockers Patient is not requiring any more inotropic. Continue strict I's and O's and continue to monitor daily electrolytes and renal profile Continue oral amiodarone Continue GI prophylaxis and DVT prophylaxis Continue to monitor in the ICU Continue incentive spirometry Ambulate Will continue to follow Time with Patient: Less than 30
[2024-03-09 11:42] LABS: Glucose,Whole Blood 242 mg/dL (70-110)
--- NOTE | 2024-03-09 12:29 | P.PN ---
Subjective patient is seen for follow-up for acute kidney injury. patient was started on dialysis on 03/08/2024 due to worsening renal function and significant volume overload. Status post UF of 2 L yesterday with hemodialysis. Patient is seen on hemodialysis today, tolerating treatment well. No significant complaints. Patient states she is feeling better and was able to participate much more in therapy. Objective - Vital Signs Vital signs: Vital Signs Temp 98.4 F 03/09/24 08:00 Pulse 62 03/09/24 11:00 Resp 22 03/09/24 11:00 BP 114/60 03/09/24 11:00 Pulse Ox 95 03/09/24 11:00 FiO2 40 02/26/24 16:39 Intake & Output 03/08/24 03/09/24 03/09/24 18:59 06:59 18:59 Intake Total 1350 240 Output Total 3355 855 740 Balance -2004 -855 -500 Weight 87.5 kg Intake: IV 130 0.9 sodium chloride 130 Oral 720 240 Hemodialysis 500 Output: Chest Tube Drainage 755 280 400 Left Pleural Chest Tube 420 110 250 Right Pleural Chest Tube 335 170 150 Urine 600 575 340 Hemodialysis 2000 Other: Voiding Method Indwelling Catheter Indwelling Catheter # Bowel Movements 1 ABP, PAP, CO, CI - Last Documented Arterial Blood Pressure 139/47 Pulmonary Artery Pressure 36/20 Cardiac Output 4.2 Cardiac Index 2.3 - Exam patient is awake, comfortable, no acute distress Alert oriented 3 Examination of the heart S1 and S2 Examination of the lungs bilateral breath sounds are heard, decreased breath sounds at the bases Abdomen is soft nontender Examination of lower extremities shows 2+ edema. [employer] exam grossly intact - Labs CBC & Chem 7: 03/09/24 06:27 03/09/24 06:27 Labs: Abnormal Lab Results - Last 24 Hours (Table) 03/08/24 03/08/24 03/09/24 Range/Units 16:26 20:05 06:09 RBC (3.80-5.40) m/uL Hgb (11.4-16.0) gm/dL Hct (34.0-46.0) % MCHC (31.0-37.0) g/dL Sodium (137-145) mmol/L BUN (7-17) mg/dL Creatinine (0.52-1.04) mg/dL Glucose (74-99) mg/dL POC Glucose (mg/dL) 289 H 206 H 212 H (70-110) mg/dL Calcium (8.4-10.2) mg/dL 03/09/24 03/09/24 03/09/24 Range/Units 06:27 06:27 11:41 RBC 2.89 L (3.80-5.40) m/uL Hgb 8.8 L (11.4-16.0) gm/dL Hct 28.5 L (34.0-46.0) % MCHC 30.7 L (31.0-37.0) g/dL Sodium 130 L (137-145) mmol/L BUN 70 H (7-17) mg/dL Creatinine 3.91 H (0.52-1.04) mg/dL Glucose 193 H (74-99) mg/dL POC Glucose (mg/dL) 242 H (70-110) mg/dL Calcium 7.8 L (8.4-10.2) mg/dL Assessment and Plan Assessment: 1. Acute kidney injury secondary to ATN secondary to cardiorenal syndrome. Creatinine at 4.97 today. Creatinine as low as 0.98 dated March 01, 2022. No hydronephrosis noted on kidney ultrasound. Serologies negative. started renal replacement therapy on 03/08/2024 due to significant volume overload and worsening renal function. 2. Acute on chronic systolic CHF with ejection fraction of 20 to 25% with moderate to severe mitral regurgitation and mild pulmonary hypertension. 3. Volume overload. 4. Anemia. Iron deficiency noted. Status post IV iron. On Aranesp. GI following. Status post blood transfusion this admission. 5. Metabolic acidosis secondary to acute kidney injury. On oral bicarb. Stable. 6. Hypervolemic hyponatremia. Also component of hypertonicity from hyperglycemia. Better. 7. Urinary retention status post Saldaña catheter placement. On Flomax. 8. Status post coronary artery bypass surgery x 4 on 02/26/2024 Plan: continue with IV Bumex Hemodialysis today with increase UF as tolerated. Continue with Aranesp Hemodialysis on 03/11/2024 patient will need IJ permacath placed sometime next week.
--- NOTE | 2024-03-09 13:44 | PN ---
PROGRESS NOTE DATE OF SERVICE: 03/09/2024 SUBJECTIVE: This is a 58-year-old woman who was admitted with multiple medical problems including CAD, CABG, chest tube drainage. The patient is started on hemodialysis. The patient still had some chest tube drainage. Her creatinine is elevated at 3.91, hemoglobin is 8.8 and stable. PAST MEDICAL HISTORY: Reviewed. REVIEW OF SYSTEMS: A 14-point review is negative except as mentioned earlier. CURRENT MEDICATIONS: Reviewed include DuoNeb, dose and rest of medications reviewed. PHYSICAL EXAMINATION: VITAL SIGNS: Pulse 68, blood pressure 106/50, respirations 16. HEENT: Conjunctivae normal. NECK: No jugular venous distention. CARDIOVASCULAR: S1, S2. RESPIRATIONS: Diminished at the bases, few scattered rhonchi. ABDOMEN: Soft, nontender. NERVOUS SYSTEM: Nonfocal. LABORATORY DATA: Hemoglobin 8.8, rest of the labs are noted. ASSESSMENT: 1. CAD, status post CABG. 2. CHF acute exacerbation, ejection fraction 20% to 25%. 3. Chest tube drainage. 4. Acute on chronic kidney disease, on hemodialysis. 5. Hypoalbuminemia. 6. Diabetes mellitus, type 2. 7. Multiple complex medical issues. RECOMMENDATIONS: Recommended to continue current medications, continue symptomatic treatment. Continue hemodialysis. Repeat labs. The patient has found some hypoalbuminemia also. Continue the antiplatelet agents. DVT prophylaxis. Guarded prognosis. Further recommendations to follow. MMMICHAELL / SUKHWINDERN: [id number] /
[2024-03-09 16:33] LABS: Glucose,Whole Blood 48 mg/dL (70-110)
[2024-03-09] MEDS: DEXTROSE 50% SYRINGE 50 ML IVP PRN (16:38)
[2024-03-09 16:57] LABS: Glucose,Whole Blood 162 mg/dL (70-110)
[2024-03-09] MEDS: DEXTROSE 50% SYRINGE 50 ML IVP STA (17:01)
[2024-03-09 18:43] LABS: Glucose,Whole Blood 114 mg/dL (70-110)
[2024-03-09 19:50] LABS: Glucose,Whole Blood 123 mg/dL (70-110)
[2024-03-10 04:41] LABS: HCT 28.8 % (34.0-46.0); HGB 8.7 gm/dL (11.4-16.0); Hypochromasia Marked; MCH 30.3 pg (25.0-35.0); MCHC 30.2 g/dL (31.0-37.0); MCV 100.4 fL (80.0-100.0); Macrocytosis Slight; Mean Platelet Volume 7.8; Platelet Count 254 k/uL (150-450); RBC 2.87 m/uL (3.80-5.40); RDW 15.2 % (11.5-15.5); WBC 5.2 k/uL (3.8-10.6)
[2024-03-10 04:45] LABS: ALT 13 U/L (4-34); AST 33 U/L (14-36); African American GFR (CKD) 15 (>60 ml/min/1.73 sqM); Albumin 2.2 g/dL (3.5-5.0); Alkaline Phosphatase 173 U/L (38-126); Anion Gap 4 mmol/L; Blood Urea Nitrogen 52 mg/dL (7-17); Calcium 7.7 mg/dL (8.4-10.2); Carbon Dioxide 24 mmol/L (22-30); Chloride 102 mmol/L (98-107); Glucose 325 mg/dL (74-99); Non-African American GFR(CKD) 13 (>60 ml/min/1.73 sqM); Potassium 4.3 mmol/L (3.5-5.1); Sodium 130 mmol/L (137-145); Total Bilirubin 0.4 mg/dL (0.2-1.3); Total Protein 4.7 g/dL (6.3-8.2)
[2024-03-10 06:18] LABS: Glucose,Whole Blood 428 mg/dL (70-110)
[2024-03-10] MEDS: INSULIN DETEMIR (LEVEMIR) 100 UNIT/ML SYR SQ SCH (06:43)
--- NOTE | 2024-03-10 06:57 | XR ---
EXAMINATION TYPE: XR chest 1V portable DATE OF EXAM: 03/10/2024 COMPARISON: 03/09/2024 HISTORY: Postop cardiac surgery TECHNIQUE: Single frontal view of the chest is obtained. FINDINGS: There is been prior CABG surgery. There is a loop recorder. Projecting over the left lower lobe. No change in the right-sided PICC line bilateral chest tubes. There is no change in small apical pneumothoraces. There is mild pulmonary vascular congestion. There is no pleural effusion. IMPRESSION: 1. No change in the small biapical pneumothoraces. 2. No change in the mild pulmonary vascular congestion
[2024-03-10] MEDS ORDERED: INSULIN DETEMIR (LEVEMIR) 100 UNIT/ML SYR SQ SCH (07:00)
--- NOTE | 2024-03-10 08:40 | P.PN ---
Subjective Progress Note Date: 03/10/24 Principal diagnosis: Triple-vessel coronary artery disease, non-STEMI this admission, acute systolic heart failure with reduced ejection fraction 35%, new onset ischemic cardiomyop athy, mild mitral valve regurgitation on AFRICA, acute on chronic kidney disease, acute anemia. History of hypertension, hyperlipidemia, hypothyroid, diabetes mellitus, CVA, hepatitis as a child, CKD stage IV, previous tobacco dependence with recent cessation, severe COPD, previous methamphetamine use with recent cessation, family history of coronary artery disease. POD #13 Off-pump CABG x 4 with sequential left internal mammary artery to left anterior descending coronary artery and diagonal coronary artery, reverse saphenous vein graft's to the posterior descending coronary artery and second obtuse marginal coronary artery, closure of the left atrial appendage with 35mm AtriCure clip, placement of percutaneous right femoral intra-aortic balloon pump, transesophageal echocardiogram performed by anesthesia. POD #3 ultrasound-guided right common femoral vein access and placement of central venous catheter for dialysis, acute kidney injury secondary to ATN secondary to cardiorenal syndrome. Initiation of hemodialysis on March 08, 2024. Postoperative acute blood loss anemia, expected secondary to hemodilution and preoperative anemia. Postoperative paroxysmal atrial fibrillation, a known common occurrence after cardiac surgery, not a complication. Patient was seen examined in follow-up today March 10, 2024 at her bedside in the intensive care unit. She is currently sitting up to the bedside chair, is awake, alert, oriented x 3 and is in no acute apparent distress. She denies any complaints of pain or shortness of breath at this time, and reports that her weakness and feeling of heaviness to her bilateral lower extremities has improved. She was up ambulating in the intensive care unit hallway with standby assistance from nursing staff this morning and tolerated well. Oxygen saturations are 93% on room air and she is achieving 1000 mL on her incentive spirometry with encouragement. Bedside telemetry is showing normal sinus rhythm heart rate 65 bpm. She remains hemodynamically stable and is currently on no inotropic or pressor support. She underwent hemodialysis yesterday with ultrafiltration completed of 2 L and tolerated well. She is scheduled for dialysis again tomorrow March 11, 2024. Left and right pleural chest tubes remain in place to waterseal. No air leak is present. Right pleural chest tube is draining thin serous drainage with 220 mL output in the last 8 hours and 550 mL output in the last 24 hours. Left pleural chest tube draining thin serous drainage with 310 mL output in the last 8 hours and 500 mL output in the last 24 hours. Saldaña catheter remains in place for urine retention, urine output in the last 8 hours is 330 mL she remains on Bumex 2 mg IV every 12 hours managed by nephrology. Urology has been consulted for the urine retention. According to the patient she has a history of urine retention and some bladder issues f ollowed by Dr. Robbins as an outpatient. Chest x-ray and laboratory results reviewed. Objective - Vital Signs Vital signs: Vital Signs Temp 97.6 F 03/10/24 08:00 Pulse 65 03/10/24 08:00 Resp 12 03/10/24 08:00 BP 115/51 03/10/24 08:00 Pulse Ox 94 L 03/10/24 08:00 FiO2 40 02/26/24 16:39 Intake & Output 03/09/24 03/10/24 03/10/24 18:59 06:59 18:59 Intake Total 1060 506 200 Output Total 3705 1185 30 Balance -6935 -679 170 Weight 85.1 kg Intake: IV 30 Invasive Line 10 30 Oral 660 476 200 Hemodialysis 400 Output: Chest Tube Drainage 630 730 Left Pleural Chest Tube 340 390 Right Pleural Chest Tube 290 340 Urine 575 455 30 Emesis 100 Hemodialysis 2400 Other: Voiding Method Indwelling Catheter Indwelling Catheter Indwelling Catheter # Bowel Movements 1 ABP, PAP, CO, CI - Last Documented Arterial Blood Pressure 139/47 Pulmonary Artery Pressure 36/20 Cardiac Output 4.2 Cardiac Index 2.3 - Exam CONSTITUTIONAL: Sitting up to the bedside chair in the intensive care unit, appears comfortable, cooperative, no apparent acute distress. HEENT: Neck is supple, no JVD, no lymphadenopathy. RESPIRATORY: Lungs sounds essentially clear throughout, diminished to her bilateral bases. Respirations are symmetrical and nonlabored. Currently on room air with oxygen saturations 93%. Able to achieve 1000 mL on her incentive spirometry. Strong cough. CARDIOVASCULAR: Regular rhythm and rate. S1 and S2 present, negative for S3, gallop or murmur. Bedside telemetry showing normal sinus rhythm heart rate 65 bpm. Sternum is stable. Palpable peripheral pulses bilaterally. No calf pain or tenderness noted. Heart hugger in place with patient demonstrating appropriate use. Knee-high CRISTOBAL hose and sequential compression devices in place to her bilateral lower extremities. GASTROINTESTINAL: Abdomen soft, nontender, nondistended. Active bowel sounds present 4 quadrants. Passing flatus. No guarding or rigidity. Tolerating diet. Bowel movement on 03/09/2024. GENITOURINARY: Saldaña catheter in place for accurate I's and O's and urine reten tion. Urine output 330 mL in the last 8 hours. Right common femoral vein access, placement of central venous catheter for dialysis. 2000 mL of ultrafiltration with hemodialysis completed yesterday March 09, 2024. INTEGUMENTARY: Skin is warm and dry with no evidence of clubbing or cyanosis. Midline sternal incision clean dry and well approximated, covered with dry intact dressing. Left lower extremity EVH sites well approximated without redness or drainage. NEUROLOGIC: Cranial nerves II through XII intact. No focal deficits. MUSKULOSKELETAL: Able to move all extremities, strength equal bilaterally, generalized weakness. PSYCHIATRIC: Alert and oriented to person place and time, appropriate affect, intact judgment and insight. INVASIVE LINES AND TUBES: Left/right pleural chest tubes present and are to waterseal, no air leaks present. Left pleural chest tube drained 500 mL of thin serous drainage in the last 24 hours. Right pleural chest tube drained 550 mL of thin serous drainage in the last 24 hours. - Allied health notes Allied health notes reviewed: nursing - Labs CBC & Chem 7: 03/10/24 03:49 03/10/24 03:49 Labs: Abnormal Lab Results - Last 24 Hours (Table) 02/25/24 03/09/24 03/09/24 Range/Units 06:00 11:41 16:31 RBC (3.80-5.40) m/uL Hgb (11.4-16.0) gm/dL Hct (34.0-46.0) % MCV (80.0-100.0) fL MCHC (31.0-37.0) g/dL Sodium (137-145) mmol/L BUN (7-17) mg/dL Creatinine (0.52-1.04) mg/dL Glucose (74-99) mg/dL POC Glucose (mg/dL) 242 H 48 L* (70-110) mg/dL Calcium (8.4-10.2) mg/dL Alkaline Phosphatase (38-126) U/L Total Protein (6.3-8.2) g/dL Albumin (3.5-5.0) g/dL Crossmatch See Detail 03/09/24 03/09/24 03/09/24 Range/Units 16:55 18:42 19:48 RBC (3.80-5.40) m/uL Hgb (11.4-16.0) gm/dL Hct (34.0-46.0) % MCV (80.0-100.0) fL MCHC (31.0-37.0) g/dL Sodium (137-145) mmol/L BUN (7-17) mg/dL Creatinine (0.52-1.04) mg/dL Glucose (74-99) mg/dL POC Glucose (mg/dL) 162 H 114 H 123 H (70-110) mg/dL Calcium (8.4-10.2) mg/dL Alkaline Phosphatase (38-126) U/L Total Protein (6.3-8.2) g/dL Albumin (3.5-5.0) g/dL Crossmatch 03/10/24 03/10/24 03/10/24 Range/Units 03:49 03:49 06:17 RBC 2.87 L (3.80-5.40) m/uL Hgb 8.7 L (11.4-16.0) gm/dL Hct 28.8 L (34.0-46.0) % MCV 100.4 H (80.0-100.0) fL MCHC 30.2 L (31.0-37.0) g/dL Sodium 130 L (137-145) mmol/L BUN 52 H (7-17) mg/dL Creatinine 3.54 H (0.52-1.04) mg/dL Glucose 325 H (74-99) mg/dL POC Glucose (mg/dL) 428 H (70-110) mg/dL Calcium 7.7 L (8.4-10.2) mg/dL Alkaline Phosphatase 173 H (38-126) U/L Total Protein 4.7 L (6.3-8.2) g/dL Albumin 2.2 L (3.5-5.0) g/dL Crossmatch - Imaging and Cardiology Chest x-ray: report reviewed, image reviewed Assessment and Plan Assessment: Triple-vessel coronary artery disease, non-STEMI this admission, status post four-vessel off-pump coronary artery bypass grafting surgery Acute systolic heart failure with reduced ejection fraction, 20-25%, 35% on A[place] New onset ischemic cardiomyopathy Moderate to severe mitral regurgitation on transthoracic echocardiogram, mild mitral regurgitation on A[place] Acute on chronic kidney disease secondary to ATN secondary to cardiorenal syndrome, status post placement of ultrasound-guided right common femoral vein access, placement of central venous catheter for dialysis Acute anemia Hypertension Hyperlipidemia, treated, cholesterol 150, LDL 72.8 Hypothyroid, TSH 1.73 Diabetes mellitus, hemoglobin A1c 7.1% CVA Hepatitis as a child Chronic kidney disease Previous tobacco dependence with recent cessation Severe COPD, preoperative FEV1 27% of predicted Previous methamphetamine use with recent cessation Family history of coronary artery disease with sister having multiple stents Postoperative acute blood loss anemia, expected given hemodilution and preoperative anemia Postoperative paroxysmal atrial fibrillation, a known common occurrence after cardiac surgery, not a complication, status post ligation of the left atrial appendage, currently normal sinus rhythm Plan: Continue to maximize medical therapy with aspirin, statin, Plavix, beta-alex. Will increase beta-alex as tolerated. Continue hydralazine Isordil for afterload reduction with hold parameters. Continue oral amiodarone for A-fib prophylaxis, weekly taper, decreased to 200 mg BID March 05, 2024. Encourage incentive spirometry use 10 times every hour while awake. Bronchodilators per pulmonology. Increase activity, ambulate as tolerated. PT/OT/cardiac rehab following. Will monitor daily labs and chest x-rays. Electrolyte replacement per protocol. GI/DVT prophylaxis. Hemodialysis recommendations per nephrology. Hemodialysis is scheduled for tomorrow March 11, 2024. Patient will need permacath placement. Pain control per current medication regimen. Avoid Toradol due to kidney failure. Insulin management per internal medicine. Preoperative hemoglobin A1c 7.1%. Patient needs tight blood sugar control for infection prevention and promotion of healing. Continue pleural chest tubes due to high output, placed to water seal March 06, 2024. Saldaña catheter in place for accurate I's and O's and urine retention. Continue Flomax 0.4 mg p.o. daily. Continue to record strict accurate intake and output. Daily weights. Consult urology for urine retention. More recommendations to follow based on patient's clinical course. Time with Patient: Greater than 30
[2024-03-10 08:42] LABS: Glucose,Whole Blood 340 mg/dL (70-110)
[2024-03-10] MEDS: INSULIN ASPART (NovoLOG) 100 UNIT/ML VIAL SQ SCH (08:46)
[2024-03-10] MEDS: BUMETANIDE 0.25 MG/ML 10 ML VIAL IV SCH (08:46)
--- NOTE | 2024-03-10 09:50 | P.PN ---
Subjective patient is seen for follow-up for acute kidney injury. patient was started on dialysis on 03/08/2024 due to worsening renal function and significant volume overload. Status post UF of 2.4 L yesterday with hemodialysis. No significant complaints. Patient states she is feeling better and was able to participate much more in therapy. Urine output at about 30-50 mL an hour. Patient is maintained on IV diuretics Objective - Vital Signs Vital signs: Vital Signs Temp 97.6 F 03/10/24 08:00 Pulse 65 03/10/24 08:00 Resp 12 03/10/24 08:00 BP 115/51 03/10/24 08:00 Pulse Ox 94 L 03/10/24 08:00 FiO2 40 02/26/24 16:39 Intake & Output 03/09/24 03/10/24 03/10/24 18:59 06:59 18:59 Intake Total 1060 506 200 Output Total 3705 1185 30 Balance -2645 -679 170 Weight 85.1 kg Intake: IV 30 Invasive Line 10 30 Oral 660 476 200 Hemodialysis 400 Output: Chest Tube Drainage 630 730 Left Pleural Chest Tube 340 390 Right Pleural Chest Tube 290 340 Urine 575 455 30 Emesis 100 Hemodialysis 2400 Other: Voiding Method Indwelling Catheter Indwelling Catheter Indwelling Catheter # Bowel Movements 1 ABP, PAP, CO, CI - Last Documented Arterial Blood Pressure 139/47 Pulmonary Artery Pressure 36/20 Cardiac Output 4.2 Cardiac Index 2.3 - Exam patient is awake, comfortable, no acute distress Alert oriented 3 Examination of the heart S1 and S2 Examination of the lungs bilateral breath sounds are heard, decreased breath sounds at the bases Abdomen is soft nontender Examination of lower extremities shows 2+ edema. CAFETERIA DIRECTOR exam grossly intact - Labs CBC & Chem 7: 03/10/24 03:49 03/10/24 03:49 Labs: Abnormal Lab Results - Last 24 Hours (Table) 02/25/24 03/09/24 03/09/24 Range/Units 06:00 11:41 16:31 RBC (3.80-5.40) m/uL Hgb (11.4-16.0) gm/dL Hct (34.0-46.0) % MCV (80.0-100.0) fL MCHC (31.0-37.0) g/dL Sodium (137-145) mmol/L BUN (7-17) mg/dL Creatinine (0.52-1.04) mg/dL Glucose (74-99) mg/dL POC Glucose (mg/dL) 242 H 48 L* (70-110) mg/dL Calcium (8.4-10.2) mg/dL Alkaline Phosphatase (38-126) U/L Total Protein (6.3-8.2) g/dL Albumin (3.5-5.0) g/dL Crossmatch See Detail 03/09/24 03/09/24 03/09/24 Range/Units 16:55 18:42 19:48 RBC (3.80-5.40) m/uL Hgb (11.4-16.0) gm/dL Hct (34.0-46.0) % MCV (80.0-100.0) fL MCHC (31.0-37.0) g/dL Sodium (137-145) mmol/L BUN (7-17) mg/dL Creatinine (0.52-1.04) mg/dL Glucose (74-99) mg/dL POC Glucose (mg/dL) 162 H 114 H 123 H (70-110) mg/dL Calcium (8.4-10.2) mg/dL Alkaline Phosphatase (38-126) U/L Total Protein (6.3-8.2) g/dL Albumin (3.5-5.0) g/dL Crossmatch 03/10/24 03/10/24 03/10/24 Range/Units 03:49 03:49 06:17 RBC 2.87 L (3.80-5.40) m/uL Hgb 8.7 L (11.4-16.0) gm/dL Hct 28.8 L (34.0-46.0) % MCV 100.4 H (80.0-100.0) fL MCHC 30.2 L (31.0-37.0) g/dL Sodium 130 L (137-145) mmol/L BUN 52 H (7-17) mg/dL Creatinine 3.54 H (0.52-1.04) mg/dL Glucose 325 H (74-99) mg/dL POC Glucose (mg/dL) 428 H (70-110) mg/dL Calcium 7.7 L (8.4-10.2) mg/dL Alkaline Phosphatase 173 H (38-126) U/L Total Protein 4.7 L (6.3-8.2) g/dL Albumin 2.2 L (3.5-5.0) g/dL Crossmatch 03/10/24 Range/Units 08:40 RBC (3.80-5.40) m/uL Hgb (11.4-16.0) gm/dL Hct (34.0-46.0) % MCV (80.0-100.0) fL MCHC (31.0-37.0) g/dL Sodium (137-145) mmol/L BUN (7-17) mg/dL Creatinine (0.52-1.04) mg/dL Glucose (74-99) mg/dL POC Glucose (mg/dL) 340 H (70-110) mg/dL Calcium (8.4-10.2) mg/dL Alkaline Phosphatase (38-126) U/L Total Protein (6.3-8.2) g/dL Albumin (3.5-5.0) g/dL Crossmatch Assessment and Plan Assessment: 1. Acute kidney injury secondary to ATN secondary to cardiorenal syndrome. Creatinine as low as 0.98 dated March 01, 2022. No hydronephrosis noted on kidney ultrasound. Serologies negative. Started renal replacement therapy on 03/08/2024 due to significant volume overload and worsening renal function. 2. Acute on chronic systolic CHF with ejection fraction of 20 to 25% with moderate to severe mitral regurgitation and mild pulmonary hypertension. 3. Volume overload. 4. Anemia. Iron deficiency noted. Status post IV iron. On Aranesp. GI following. Status post blood transfusion this admission. 5. Metabolic acidosis secondary to acute kidney injury. On oral bicarb. Stable. 6. Hypervolemic hyponatremia. Also component of hypertonicity from hyperglycemia. Better. 7. Urinary retention status post Saldaña catheter placement. On Flomax. 8. Status post coronary artery bypass surgery x 4 on 02/26/2024 Plan: continue with IV Bumex hemodialysis in a.m. Patient will need IJ permacath placed in the next few days.
[2024-03-10 11:26] LABS: Glucose,Whole Blood 196 mg/dL (70-110)
[2024-03-10] MEDS: INSULIN DETEMIR (LEVEMIR) 100 UNIT/ML SYR SQ ONE (11:31)
--- NOTE | 2024-03-10 12:10 | P.PN ---
Subjective Progress Note Date: 03/10/24 Principal diagnosis: Acute hypoxic respiratory failure secondary to acute systolic congestive heart failure and ischemic cardiomyopathy Patient is a 58-year-old white female with past medical history significant for COPD, chronic ongoing tobacco dependence, CVA/TIA, diabetes mellitus, hyperlipidemia, hypertension, hypothyroidism, fibromyalgia, GERD, among other things. Patient presented back on 02/06/2024 from [facility] with chief complaint of increased lower extremity swelling. She states that she first noted the swelling back in December,. It is progressively worsened, she states she has gained approximately 20 pounds over the last 2 months. Approximately 10 days ago she was awoken at night with substernal chest pain. Nonradiating. With associated shortness of breath and sweating. Lasted up to 15 minutes. She is also had a nonproductive cough. She was noted to be febrile this admission. She is empirically covered on antibiotics. On arrival to the emergency room, she was noted to have elevated troponins of 1.29, 1.76, and 2.2. EKG showed normal sinus rhythm with left bundle branch block, without any other acute ischemic changes. No previous EKG for comparison. She was started on heparin infusion per protocol. She also was on a Nitropaste. Echocardiogram showed a severely impaired left ventricular ejection fraction of 20 to 25%, and moderate to severe mitral regurgitation. Today, she was started on a Lasix infusion at 5 mg/h. Heparin infusion was stopped as the patient is anemic. Patient denies any acute blood loss. No vaginal bleeding. No juan blood in stool. No melena. No nausea or vomiting or hematic emesis. Last colonoscopy was reportedly around 10 years ago. She is currently lying in bed, on 2 L/min nasal cannula. Chest x-ray on admission shows diffuse interstitial edema as well as bilateral consolidation and small effusions. Findings consistent with congestive heart failure. NT proBNP was elevated 25,000. Patient not making much urine despite Lasix infusion. Patient did have 1 episode of fever during her admission with a Tmax of 100.2 F. She was empirically she was empirically placed on Rocephin. Negative for influenza, RSV, COVID. Most recent BMP from today: Sodium 130, potassium 5.1, chloride 104, serum bicarb down to 17, BUN 63, creatinine worsening and 3.34, glucose 229. LFTs mildly elevated. Hepatitis panel nonreactive. Overall, hemodynamically stable. On 02/08/2024, seen the patient for a follow-up. The patient is currently on 3 L of oxygen by nasal cannula with a pulse ox of 94%. She should be able to wean down. She is on Lasix drip at 5 mg an hour and the patient is producing adequ ate amount of urine output. Her fluid balance is negative. As mentioned, the patient is post non-ST segment ovation myocardial infarction the patient is being seen by cardiology. The patient has severe cardiomyopathy with impaired left ventricular ejection fraction. Her blood work from today shows a BUN of 66 with a creatinine of 3.41 and this is consistent with an acute on chronic kidney injury. Sodium levels at 129, potassium is at 4.4 with a WBC count of 6.3 and a hemoglobin of 7.4. The patient is on IV Rocephin as an empiric antibiotic coverage. She is currently afebrile. The patient is being seen by cardiology. The patient will be kept on IV Lasix. Not a candidate for any invasive cardiac workup due to her acute on top of chronic kidney injury at this point in time. Her comorbidities are multiple. Unsure if she does have underlying coronary artery disease. Nevertheless, she has previous history of CVA, diabetes mellitus type 2, hypothyroidism and CHF. She was in [facility] for being arrested due to possession of amphetamines. Vasculitis workup was negative including a n egative EDSON and a negative P and C ANCA. Hepatitis profile was also negative. On 02/10/2024, the patient is being seen for a follow-up. No new complaints. No significant shortness of breath at rest. Remains on Lasix drip. Producing adequate amount of urine output. Blood work from today was noticed that the patient has a white cell count of 6 with a hemoglobin of 7.2 and a PET scan at 360. BUN 69 with a creatinine of 3.4 and a sodium levels at 129. The patient is being seen by cardiology and nephrology addition. She remains on Lasix drip which will be increased up to 10 mg an hour. Not a candidate for further cardiac catheterization based on underlying renal dysfunction. 02/11/2024, the patient is being seen for a follow-up. No new complaints. Monitor for improvement in her condition. She remains on 2 L of oxygen by nasal cannula. Fluid balance is -90 cc over the past 24 hours. Suboptimal response to diuretics and the patient remains on Lasix at 10 mg an hour. BUN 71 with a creatinine of 3.7, slightly worse compared to yesterday. Sodium is at 131. The patient denies having any chest pain. No significant hypotension. Remains on aspirin. Remains on metoprolol 25 mg p.o. twice a day. Cardiology on the case. She has significant cardiomyopathy. She is post acute non-STEMI. Not a candidate for cardiac catheterization due to renal impairment. The patient is seen today February 12, 2024 in follow-up on the selective care unit. She is currently sitting up in bed. Awake and alert in no acute distress. She is maintaining O2 saturation in the 90s on 3 L nasal cannula. She is afebrile. Hemodynamically stable. Today's chest x-ray reviewed reveals diffuse bilateral infiltrates with small effusion or early congestive heart failure. Hemoglobin 6.7. 1 unit of packed blood cells have been ordered. Platelets 362. White count 6.1. Sodium 131. Potassium 4.2. Bicarb 21. BUN 80. Creatinine 3.89. Glucose 286. She remains on. Antibiotics in the form of ceftriaxone. Remains on a Lasix drip at 5 mg an hour. Currently in a -178 mL balance. The patient is seen today February 13, 2024 in follow-up on the selective care unit. She is awake and alert in no acute distress. Sitting up in bed. Blood and urine cultures revealed no growth. White count 6.2. Hemoglobin 7.4. Platelets 01/05/1978. Sodium 133. Potassium 3.9. Bicarb 21. BUN 83. Creatinine 3.60. Glucose 154. She remains on a Lasix drip currently at 5 mg/h. She remains on a heparin drip. Receiving sodium bicarb tablets. Continued on bronchodilators. Continued on antibiotics in the form of ceftriaxone. She is currently in a negative balance. Voided 1 L today. The patient is seen today February 14, 2024 in follow-up on the selective care unit. She is currently sitting up in bed. Awake and alert in no acute distress. She is maintaining good O2 saturations in the 90s on 3 L/min per nasal cannula. She is afebrile. Hemodynamically stable. Follow-up chest x-ray continues to show diffuse bilateral infiltrate with small effusions. She is status post 1 unit of packed red blood cells this admission. Last hemoglobin 7.7. Sodium 135. Potassium 4.6. Bicarb 20. BUN 87. Creatinine 3.55. Glucose 358. She is continued on bronchodilators. Antibiotics in form of ceftriaxone. She remains on a Lasix drip at 10 mg/h. Receiving sodium bicarb tablets. Currently -688 mL balance. Nephrology is following. The patient is seen today February 15, 2024 in follow-up on the selective care unit. She is currently sitting up in bed awake and alert in no acute distress. She is maintaining O2 saturations in the mid 90s on 2 L/min per nasal cannula. She is afebrile. Hemodynamically stable. White count 6.8. Hemoglobin 8.6. Platelets 438. Sodium 135. Potassium 4.0. Bicarb 21. BUN 84. Creatinine 3.41. Glucose 171. She remains on a Lasix drip at 10 mg/h. Continued on a heparin drip. Plan to -1 L balance. Stress testing today reveals a large area of fixed defect involving all segments of the myocardium suggestive of remote ischemia. Could not exclude a tiny area of stress-induced reversibility within the apex. Reduced wall motion activity with ejection fraction of only 21%. Patient was seen and examined today on 02/16/2024 patient is feeling better today, continues to diurese with a Lasix drip, remains in negative fluid balance, patient underwent cardiac catheterization today and she was found to have severe triple-vessel coronary artery disease, now she is being evaluated by surgery, patient does have severe LV dysfunction, she is definitely high surgical risk, but no absolute contraindication to surgery.Basic metabolic profile is normal BUN is 85 creatinine 3.58 however the patient may require hemodialysis, and she will need nephrology clearance she will also need a bedside spirometry/FEV1 for preoperative pulmonary clearance in the meantime we will continue diuretics/Lasix drip Patient was reevaluated today on 02/17/2024, remains on Lasix drip, remains in negative fluid balance, patient is very well aware that she had abnormal cardiac catheterization and now she is being evaluated for possible myocardial revascularization. Patient remains on oxygen at 2 L/min and her O2 sats is 97%, her PFT showed severe obstructive lung disease, however not severe enough to not consider myocardial revascularization if the patient is cleared by other con sultants including nephrology and cardiology. Patient has been a smoker over the years, she had at least a [id number] smoking history. Remind you patient had a PFT with chest x-ray still showing evidence of pulmonary edema which will definitely compromise her PFT will likely reflect more restriction than obstructive lung disease. WBC count today is 4.9 hemoglobin 7.7 electrolytes are normal BUN is 85 creatinine 3.59 Patient was reevaluated today on 02/18/2024, remains on Lasix drip, 10 mg/h, remains in constant negative fluid balance, chest x-ray today is definitely showing improvement but nonetheless her pulmonary edema is not completely resolved. Patient was being considered for CABG however the plan is presently on hold because of her overall pulmonary status and possibly the patient could benefit from more optimization of her congestive heart failure. In the meantime she seems to be doing better with the Lasix drip. Patient is also maintained on bronchodilators for her underlying COPD. Patient was seen today on 03/05/2024, patient is now postoperative day #8Off-pump CABG x 4 with sequential left internal mammary artery to left anterior descending coronary artery and diagonal coronary artery, reverse saphenous vein graft to the posterior descending coronary artery and second obtuse marginal coronary artery, closure of the left atrial appendage with 35mm AtriCure clip, placement of percutaneous right femoral intra-aortic balloon pump, transesophageal echocardiogram performed by anesthesia. And is on room air, sitting at the bedside recliner, is in the ICU, not in any distress. Have fluid buildup and bipedal edema. Renal functioning is a bit worse, but the patient is making urine, remains on Primacor at 0.25 mcg/kg/min, intermittently on diuretics, no plans for hemodialysis at this point yet. To have both pleural chest tubes in place, giving over 1000 cc on her incentive spirometry, patient is ambulating with assistance. Chest x-ray minimal bilateral biapical pneumothoraces, and it it showed mild congestive heart failure. WBC is 5.8 hemoglobin 8.5 electrolytes are normal BUN is 78 creatinine 4.68 he is on oral amiodarone. He is also on aspirin and statins. Well as Plavix. For diuretics, patient is receiving Bumex 2 mg IV push every 12 hours for patient is also receiving bicarb 650 mg p.o. twice daily. Remains on GI and DVT prophylaxis. Patient was reevaluated today on 03/06/2024, she is now postoperative day #9. Patient remains in the ICU, patient is on room air, not in any distress. Continues to have bilateral pleural chest tubes, draining mostly clear fluid. And amount of drainage has been significant over the last 24 hours. Hence no plans to remove the chest tubes at this point in time. The left-sided chest tube drained 500 cc and the right pleural chest tube drained 450 cc overnight. Patient is comfortable, achieving 1000 mL on hide incentive spirometry. She does not seem to be in any distress, remains on milrinone at 0.1 mcg/kg/min. Chest x-ray is showing significant improvement in her pulmonary edema. WBC count is 5.9 hemoglobin 8.9 basic metabolic profile is normal BUN is 83 creatinine 4.59. Continues to have bipedal edema in spite of aggressive and significant diuresis. Was reexamined today on 03/07/24, remains in the ICU, remains on room air, remains on Primacor at 0.1 mcg/kg/min, continues to have significant output from her chest tubes bilaterally. Continues to have low ejection fraction of 15 to 20% remains on Bumex 4 mg every 12 hours. Patient is comfortable, not in any distress. She is on room air. Chest x-ray is showing mild pulmonary edema. WBC count is 5.7 hemoglobin 8.4 electrolytes are normal except for sodium 129 creatinine is on the rise up to 4.97 today, bicarb is 18 Reevaluate today on 03/08/2024, patient remains in the ICU, she is undergoing hemodialysis today. Patient is on room air, remains on IV fluid at 10 cc/h, patient is now off Primacor. Today is her first hemodialysis today. This was decided upon by nephrology considering her renal functioning is getting worse. Continues to have both chest/pleural chest tubes in place, chest x-ray showed minimal bilateral apical pneumothoraces, again chest tubes are in place, there is no air leak. She does have findings suggestive of mild congestive heart failure and diffuse parenchymal changes most likely pulmonary edema related unless proven otherwise. CBC is relatively normal hemoglobin is 8.6 sodium is 129 BUN 89 creatinine 5.09 Patient was evaluated today on 03/09/2024, in the ICU, doing fairly well, patient is on room air, continues to have bilateral chest tubes with significant amount of drainage over the last 24 hours and both chest tubes, patient also had hemodialysis yesterday and 2000 cc of ultrafiltration completed. Her right- sided chest tube put out 535 cc in the last 24 hours, and her left-sided chest tube was 380 cc in the last 24 hours. Needs to have fairly good urine output, she had 440 cc of urine in the last 8 hours. Patient is on hemodialysis, her renal functioning is improving, creatinine is down to 3.91 chest x-ray showed no change in her small tiny biapical pneumothoraces, continues to have some mild pulmonary vascular congestion WBC count is 5.3 hemoglobin 8.8 basic metabolic profile is normal BUN 70 creatinine 3.91 Patient was reevaluated today on 03/10/2024, remains in the ICU, remains on room air, patient is now postoperative day #13 off pump CABG x 4 with sequential left internal mammary artery to left anterior descending coronary artery and diagonal coronary artery, reverse saphenous vein graft's to the posterior descending coronary artery and second obtuse marginal coronary artery, closure of the left atrial appendage with 35mm AtriCure clip patient remains in the ICU, doing fairly well, however continues to have bilateral pleural chest tubes in place, a nd significant amount of drainage noted in the last 24 hours and both tubes. 500 mL of drainage from the right-sided chest tube, and another 500 from the left-sided chest tube over the last 24 hours patient is not scheduled to undergo hemodialysis today. But she did have dialysis yesterday. Had 3 L removed yesterday. Clinically she is doing well, but considering her LV dysfunction her overall prognosis remains extremely poor and guarded. At this point no plans to remove any of the chest tubes considering her significant amount of drainage in the last 24 hours chest x-ray is reassuring there is evidence of tiny small biapical pneumothoraces. No air leak noted.WBC is 5.2 hemoglobin 8.7 e lectrolytes are normal BUN is 52 creatinine 3.54 Objective - Vital Signs Vital signs: Vital Signs Temp 97.6 F 03/10/24 08:00 Pulse 62 03/10/24 11:00 Resp 14 03/10/24 11:00 BP 102/51 03/10/24 11:00 Pulse Ox 92 L 03/10/24 11:00 FiO2 40 02/26/24 16:39 Intake & Output 03/09/24 03/10/24 03/10/24 18:59 06:59 18:59 Intake Total 1060 506 200 Output Total 3705 1185 500 Balance -2645 -679 -300 Weight 85.1 kg Intake: IV 30 Invasive Line 10 30 Oral 660 476 200 Hemodialysis 400 Output: Chest Tube Drainage 630 730 320 Left Pleural Chest Tube 340 390 120 Right Pleural Chest Tube 290 340 200 Urine 575 455 180 Emesis 100 Hemodialysis 2400 Other: Voiding Method Indwelling Catheter Indwelling Catheter Indwelling Catheter # Bowel Movements 1 ABP, PAP, CO, CI - Last Documented Arterial Blood Pressure 139/47 Pulmonary Artery Pressure 36/20 Cardiac Output 4.2 Cardiac Index 2.3 - Exam GENERAL EXAM: Alert, 58-year-old female, in bed, on room air, not in distress, remains on room air. HEAD: Normocephalic and atraumatic EYES: Normal reaction of pupils, equal size. NOSE: Clear with pink turbinates. THROAT: No erythema or exudates. NECK: No masses, no JVD. CHEST: No chest wall deformity. LUNGS: Clear bilaterally, bilateral chest tubes noted, unchanged CVS: S1 and S2 normal with no audible murmur, regular rhythm. No extra heart sounds ABDOMEN: No hepatosplenomegaly, active bowel sounds, no guarding or rigidity. SKIN: No rashes CENTRAL NERVOUS SYSTEM: Alert oriented x 3 no gross focal deficit EXTREMITIES: 1 + bipedal edema - Labs CBC & Chem 7: 03/10/24 03:49 03/10/24 03:49 Labs: Abnormal Lab Results - Last 24 Hours (Table) 02/25/24 03/09/24 03/09/24 Range/Units 06:00 16:31 16:55 RBC (3.80-5.40) m/uL Hgb (11.4-16.0) gm/dL Hct (34.0-46.0) % MCV (80.0-100.0) fL MCHC (31.0-37.0) g/dL Sodium (137-145) mmol/L BUN (7-17) mg/dL Creatinine (0.52-1.04) mg/dL Glucose (74-99) mg/dL POC Glucose (mg/dL) 48 L* 162 H (70-110) mg/dL Calcium (8.4-10.2) mg/dL Alkaline Phosphatase (38-126) U/L Total Protein (6.3-8.2) g/dL Albumin (3.5-5.0) g/dL Crossmatch See Detail 03/09/24 03/09/24 03/10/24 Range/Units 18:42 19:48 03:49 RBC 2.87 L (3.80-5.40) m/uL Hgb 8.7 L (11.4-16.0) gm/dL Hct 28.8 L (34.0-46.0) % MCV 100.4 H (80.0-100.0) fL MCHC 30.2 L (31.0-37.0) g/dL Sodium (137-145) mmol/L BUN (7-17) mg/dL Creatinine (0.52-1.04) mg/dL Glucose (74-99) mg/dL POC Glucose (mg/dL) 114 H 123 H (70-110) mg/dL Calcium (8.4-10.2) mg/dL Alkaline Phosphatase (38-126) U/L Total Protein (6.3-8.2) g/dL Albumin (3.5-5.0) g/dL Crossmatch 03/10/24 03/10/24 03/10/24 Range/Units 03:49 06:17 08:40 RBC (3.80-5.40) m/uL Hgb (11.4-16.0) gm/dL Hct (34.0-46.0) % MCV (80.0-100.0) fL MCHC (31.0-37.0) g/dL Sodium 130 L (137-145) mmol/L BUN 52 H (7-17) mg/dL Creatinine 3.54 H (0.52-1.04) mg/dL Glucose 325 H (74-99) mg/dL POC Glucose (mg/dL) 428 H 340 H (70-110) mg/dL Calcium 7.7 L (8.4-10.2) mg/dL Alkaline Phosphatase 173 H (38-126) U/L Total Protein 4.7 L (6.3-8.2) g/dL Albumin 2.2 L (3.5-5.0) g/dL Crossmatch 03/10/24 Range/Units 11:25 RBC (3.80-5.40) m/uL Hgb (11.4-16.0) gm/dL Hct (34.0-46.0) % MCV (80.0-100.0) fL MCHC (31.0-37.0) g/dL Sodium (137-145) mmol/L BUN (7-17) mg/dL Creatinine (0.52-1.04) mg/dL Glucose (74-99) mg/dL POC Glucose (mg/dL) 196 H (70-110) mg/dL Calcium (8.4-10.2) mg/dL Alkaline Phosphatase (38-126) U/L Total Protein (6.3-8.2) g/dL Albumin (3.5-5.0) g/dL Crossmatch Assessment and Plan Assessment: Impression: Severe triple-vessel coronary artery disease based on cardiac catheterization 02/16/2024 Post CABG postoperative day # 13 patient had 4 vessels off-pump CABG. Severe ischemic cardiomyopathy and LV dysfunction repeat echocardiogram continues to show LV dysfunction with ejection fraction 15 to 20%. Severe mitral valve regurgitation, on trans thoracic echocardiogram, but she had mild mitral regurgitation on [place]. Acute kidney injury, likely cardiorenal, worsening creatinine, being followed by nephrology. Patient had hemodialysis yesterday. Metabolic non-anion gap acidosis, secondary to above Chronic obstructive pulmonary disease, stable Diabetes mellitus type 1 History of hyperlipidemia History of hypertension History of CVA/TIA History of hypothyroidism History of fibromyalgia History of GERD Mildly elevated LFTs, hepatitis panel nonreactive Former tobacco smoker, 1/2 pack/day or approximately 15-year pack history Postoperative paroxysmal atrial fibrillation, expected. Severe underlying COPD Recommendation: Continue hemodialysis as felt necessary by nephrology on the case. Continue maximal medical therapy including aspirin statin Plavix and beta- blockers Continue strict I's and O's and continue to monitor daily electrolytes and renal profile Continue oral amiodarone Continue GI prophylaxis and DVT prophylaxis Continue to monitor in the ICU Continue incentive spirometry Overall prognosis remains extremely poor and guarded Continue ambulation Will continue to follow Time with Patient: Less than 30
--- NOTE | 2024-03-10 13:47 | P.PN ---
Progress Note - Text Progress Note Date: 03/10/24 Patient seen and examined. Doing well. Sitting in chair eating. VSS- Afebrile Right groin access site intact A/P: 1. EDWINA - continue HD per nephrology - if needed will place tunneled catheter
[2024-03-10 15:19] LABS: Glucose,Whole Blood 53 mg/dL (70-110)
[2024-03-10 15:26] LABS: Glucose,Whole Blood 45 mg/dL (70-110)
[2024-03-10] MEDS: DEXTROSE 50% SYRINGE 50 ML IVP PRN (15:31)
[2024-03-10 15:46] LABS: Glucose,Whole Blood 107 mg/dL (70-110)
[2024-03-10 16:19] LABS: Glucose,Whole Blood 67 mg/dL (70-110)
[2024-03-10 16:45] LABS: Glucose,Whole Blood 95 mg/dL (70-110)
[2024-03-10 17:22] LABS: Glucose,Whole Blood 81 mg/dL (70-110)
[2024-03-10 18:08] LABS: Glucose,Whole Blood 93 mg/dL (70-110)
[2024-03-10] MEDS: ACETAMINOPHEN TAB 325 MG TAB PO PRN (18:26)
--- NOTE | 2024-03-10 19:36 | P.GSCN ---
History of Present Illness Consult date: 03/10/24 Reason for Consult: Urinary retention Requesting physician: Demian Beckford History of present illness: The patient is a 58-year-old white female with multiple medical problems, including COPD, chronic ongoing tobacco dependence, CVA/TIA, longstanding diabetes mellitus, hyperlipidemia, hypertension, hypothyroidism, fibromyalgia, and GERD. She is currently in the ICU with acute hypoxic respiratory failure secondary to CHF and ischemic cardiomyopathy. She has acute kidney injury and began hemodialysis on March 08, 2024. Renal ultrasound in February 08, 2024 was normal. Specifically, the bladder appeared normal. She has been found to be in urinary retention. I am consulted for this reason. The patient is well-known to Dr. Robbins. She was last seen by him in February 2022. Cystoscopy at that time was normal, and she was verified to be emptying her bladder completely. She has a history of recurrent UTIs and may have had a colovesical fistula in the past. Review of Systems - Cardiovascular Reports high blood pressure - Genitourinary Genitourinary: Reports as per HPI Past Medical History Past Medical History: Coronary Artery Disease (CAD), Chest Pain / Angina, Heart Failure, COPD, CVA/TIA, Diabetes Mellitus, Fibromyalgia, GERD/Reflux, Hyperlipidemia, Hypertension, Liver Disease, Myocardial Infarction (SD), Osteoarthritis (OA), Renal Disease, Thyroid Disorder Additional Past Medical History / Comment(s): NEUROPATHY BILATERAL FEET, DDD NECK AND LOWER BACK, hiatal hernia, states no need for BP med anymore(gets orthostatic hypotension-has "medtronic heart loop monitor"), hx hepatitis as a kid, hx fractrured left wrist, hx stroke 03/03/22-problems with balance since. History of Any Multi-Drug Resistant Organisms: MRSA Year Discovered:: 2018 MDRO Source:: stomach Past Surgical History: Adenoidectomy, Back Surgery, Bladder Surgery, Hysterectomy, Orthopedic Surgery, Tonsillectomy, Tubal Ligation Additional Past Surgical History / Comment(s): Debridement right foot, PICC line placed and later removed, bladder suspension, exploratory laparotomy, right great toe amputation, pins right in foot, cataracts removed, left wrist ORIF, loop heart monitor placed 02/2022. Past Anesthesia/Blood Transfusion Reactions: No Reported Reaction, Motion Sickness Additional Past Anesthesia/Blood Transfusion Reaction / Comm: . Type of Cardiac Device: Loop Past Psychological History: Anxiety, Depression Smoking Status: Former smoker Past Alcohol Use History: Occasional Past Drug Use History: Marijuana, Methamphetamine Additional Drug Use History / Comment(s): States that she last used methamphetamine 2 months ago - Past Family History Sister(s) Family Medical History: Coronary Artery Disease (CAD) Mother Family Medical History: Pulmonary Embolus Additional Family Medical History / Comment(s): . Father Additional Family Medical History / Comment(s): at 26yrs old--accident at work Medications and Allergies Home Medications Medication Instructions Recorded Confirmed Type Levothyroxine Sodium [Synthroid] 175 mcg PO DAILY 02/02/22 02/06/24 History Acetaminophen Tab [Tylenol] 650 mg PO BID PRN 02/06/24 02/06/24 History Albuterol Nebulized [Ventolin 2.5 mg INHALATION RT-TID PRN 02/06/24 02/06/24 History Nebulized] Atorvastatin [Lipitor] 20 mg PO HS 02/06/24 02/06/24 History Ciclesonide [Alvesco] 1 puff INHALATION RT-BID 02/06/24 02/06/24 History Insulin Glargine [Lantus Vial] 8 unit SQ BID 02/06/24 02/06/24 History Insulin Regular [humuLIN R] 2 units SQ TID PRN 02/06/24 02/06/24 History Insulin Regular [humuLIN R] See Protocol SQ QID 02/06/24 02/06/24 History Ondansetron Hcl 2mg/Ml Injection 4 mg INJ ONCE PRN 02/06/24 02/06/24 History Ondansetron [Zofran] 4 mg PO BID PRN 02/06/24 02/06/24 History traZODone HCL [Desyrel] 50 mg PO HS 02/09/24 02/09/24 History Allergies Allergy/AdvReac Type Severity Reaction Status Date / Time Sulfa (Sulfonamide Allergy see comment Verified 02/06/24 13:59 Antibiotics) Surgical - Exam Vital Signs Temp Pulse Resp BP Pulse Ox 97.6 F 95 18 103/56 97 02/06/24 11:55 02/06/24 11:55 02/06/24 11:55 02/06/24 11:55 02/06/24 11:55 - General well developed, well nourished, no distress - Respiratory normal respiratory effort - Abdomen Abdomen: soft, non tender, no guarding, no rigid, no rebound - Psychiatric oriented to time, oriented to person, oriented to place, speech is normal, memory intact Results - Labs 03/10/24 03:49 03/10/24 03:49 Abnormal Lab Results - Last 24 Hours (Table) 02/25/24 03/09/24 03/09/24 Range/Units 06:00 16:31 16:55 RBC (3.80-5.40) m/uL Hgb (11.4-16.0) gm/dL Hct (34.0-46.0) % MCV (80.0-100.0) fL MCHC (31.0-37.0) g/dL Sodium (137-145) mmol/L BUN (7-17) mg/dL Creatinine (0.52-1.04) mg/dL Glucose (74-99) mg/dL POC Glucose (mg/dL) 48 L* 162 H (70-110) mg/dL Calcium (8.4-10.2) mg/dL Alkaline Phosphatase (38-126) U/L Total Protein (6.3-8.2) g/dL Albumin (3.5-5.0) g/dL Crossmatch See Detail 03/09/24 03/09/24 03/10/24 Range/Units 18:42 19:48 03:49 RBC 2.87 L (3.80-5.40) m/uL Hgb 8.7 L (11.4-16.0) gm/dL Hct 28.8 L (34.0-46.0) % MCV 100.4 H (80.0-100.0) fL MCHC 30.2 L (31.0-37.0) g/dL Sodium (137-145) mmol/L BUN (7-17) mg/dL Creatinine (0.52-1.04) mg/dL Glucose (74-99) mg/dL POC Glucose (mg/dL) 114 H 123 H (70-110) mg/dL Calcium (8.4-10.2) mg/dL Alkaline Phosphatase (38-126) U/L Total Protein (6.3-8.2) g/dL Albumin (3.5-5.0) g/dL Crossmatch 03/10/24 03/10/24 03/10/24 Range/Units 03:49 06:17 08:40 RBC (3.80-5.40) m/uL Hgb (11.4-16.0) gm/dL Hct (34.0-46.0) % MCV (80.0-100.0) fL MCHC (31.0-37.0) g/dL Sodium 130 L (137-145) mmol/L BUN 52 H (7-17) mg/dL Creatinine 3.54 H (0.52-1.04) mg/dL Glucose 325 H (74-99) mg/dL POC Glucose (mg/dL) 428 H 340 H (70-110) mg/dL Calcium 7.7 L (8.4-10.2) mg/dL Alkaline Phosphatase 173 H (38-126) U/L Total Protein 4.7 L (6.3-8.2) g/dL Albumin 2.2 L (3.5-5.0) g/dL Crossmatch 03/10/24 Range/Units 11:25 RBC (3.80-5.40) m/uL Hgb (11.4-16.0) gm/dL Hct (34.0-46.0) % MCV (80.0-100.0) fL MCHC (31.0-37.0) g/dL Sodium (137-145) mmol/L BUN (7-17) mg/dL Creatinine (0.52-1.04) mg/dL Glucose (74-99) mg/dL POC Glucose (mg/dL) 196 H (70-110) mg/dL Calcium (8.4-10.2) mg/dL Alkaline Phosphatase (38-126) U/L Total Protein (6.3-8.2) g/dL Albumin (3.5-5.0) g/dL Crossmatch Diabetes panel 03/10/24 Range/Units 03:49 Sodium 130 L (137-145) mmol/L Potassium 4.3 (3.5-5.1) mmol/L Chloride 102 (98-107) mmol/L Carbon Dioxide 24 (22-30) mmol/L BUN 52 H (7-17) mg/dL Creatinine 3.54 H (0.52-1.04) mg/dL Glucose 325 H (74-99) mg/dL Calcium 7.7 L (8.4-10.2) mg/dL AST 33 (14-36) U/L ALT 13 (4-34) U/L Alkaline Phosphatase 173 H (38-126) U/L Total Protein 4.7 L (6.3-8.2) g/dL Albumin 2.2 L (3.5-5.0) g/dL Calcium panel 03/10/24 Range/Units 03:49 Calcium 7.7 L (8.4-10.2) mg/dL Albumin 2.2 L (3.5-5.0) g/dL Pituitary panel 03/10/24 Range/Units 03:49 Sodium 130 L (137-145) mmol/L Potassium 4.3 (3.5-5.1) mmol/L Chloride 102 (98-107) mmol/L Carbon Dioxide 24 (22-30) mmol/L BUN 52 H (7-17) mg/dL Creatinine 3.54 H (0.52-1.04) mg/dL Glucose 325 H (74-99) mg/dL Calcium 7.7 L (8.4-10.2) mg/dL Adrenal panel 03/10/24 Range/Units 03:49 Sodium 130 L (137-145) mmol/L Potassium 4.3 (3.5-5.1) mmol/L Chloride 102 (98-107) mmol/L Carbon Dioxide 24 (22-30) mmol/L BUN 52 H (7-17) mg/dL Creatinine 3.54 H (0.52-1.04) mg/dL Glucose 325 H (74-99) mg/dL Calcium 7.7 L (8.4-10.2) mg/dL Total Bilirubin 0.4 (0.2-1.3) mg/dL AST 33 (14-36) U/L ALT 13 (4-34) U/L Alkaline Phosphatase 173 H (38-126) U/L Total Protein 4.7 L (6.3-8.2) g/dL Albumin 2.2 L (3.5-5.0) g/dL Assessment and Plan (1) Retention of urine, unspecified Current Visit: Yes Status: Acute Code(s): R33.9 - RETENTION OF URINE, UNSPECIFIED SNOMED Code(s): 609132568 Plan: The patient underwent Saldaña catheter insertion for urinary retention. 350 cc of urine was obtained upon catheter placement. The patient does not have a known history of urinary retention, though she did experience a feeling of incomplete bladder emptying prior to admission. I would suggest that the Saldaña catheter be removed once the patient's condition is improved and she is more ambulatory. Bladder Scan should be utilized to assess bladder emptying at that time. Please notify us if she continues to empty her bladder incompletely.
--- NOTE | 2024-03-11 00:17 | PN ---
PROGRESS NOTE DATE OF SERVICE: 03/10/2024 SUBJECTIVE: This 58-year-old woman was admitted after CAD, CABG, also had renal failure. The patient is starting new-onset hemodialysis, tomorrow they will resume the hemodialysis again, 2.4 L were removed yesterday. Multiple consultants are following the patient closely. The patient is also hypoalbuminemic. PAST MEDICAL HISTORY: Reviewed. REVIEW OF SYSTEMS: A 14-point review is negative except as mentioned earlier. CURRENT MEDICATIONS: Reviewed include DuoNeb, dose and rest of medications reviewed. OBJECTIVE: VITAL SIGNS: Pulse is 58, blood pressure n, respirations 15. CHEST: Few scattered rhonchi and crackles. ABDOMEN: Soft, chest tube present. NERVOUS SYSTEM: Nonfocal. LABORATORY DATA: Hemoglobin 8.7, rest of the labs are noted. ASSESSMENT: 1. CAD, status post CABG. 2. CHF acute exacerbation, ejection fraction 20% to 24%. 3. Chest tube drainage. 4. Acute on chronic kidney disease with cardiorenal syndrome and on hemodialysis. 5. Hypoalbuminemia. 6. Diabetes mellitus type 2. 7. Multiple complex medical issues. RECOMMENDATIONS AND DISCUSSION: Recommended to continue current medications, continue symptomatic treatment. Continue hemodialysis bronchodilators and protein supplementation. Blood sugar has been elevated this morning, but currently it is 196, we will continue to monitor. Guarded prognosis. Further recommendations to follow. The patient is starting hemodialysis. MMODL / IJN: [id number] / MTDD
[2024-03-11 04:14] LABS: RBC 2.76 m/uL (3.80-5.40); WBC 5.3 k/uL (3.8-10.6)
[2024-03-11 04:15] LABS: HCT 27.2 % (34.0-46.0); HGB 8.3 gm/dL (11.4-16.0); Hypochromasia Marked; MCH 30.1 pg (25.0-35.0); MCHC 30.6 g/dL (31.0-37.0); MCV 98.5 fL (80.0-100.0); Macrocytosis Slight; Mean Platelet Volume 7.9; Platelet Count 253 k/uL (150-450); RDW 14.9 % (11.5-15.5)
[2024-03-11 04:54] LABS: African American GFR (CKD) 13 (>60 ml/min/1.73 sqM); Anion Gap 3 mmol/L; Blood Urea Nitrogen 59 mg/dL (7-17); Calcium 7.8 mg/dL (8.4-10.2); Carbon Dioxide 26 mmol/L (22-30); Chloride 101 mmol/L (98-107); Glucose 189 mg/dL (74-99); Non-African American GFR(CKD) 12 (>60 ml/min/1.73 sqM); Potassium 4.5 mmol/L (3.5-5.1); Sodium 130 mmol/L (137-145)
[2024-03-11] MEDS: INSULIN DETEMIR (LEVEMIR) 100 UNIT/ML SYR SQ SCH (06:32)
[2024-03-11 06:41] LABS: Glucose,Whole Blood 319 mg/dL (70-110)
[2024-03-11 06:41] LABS: Glucose,Whole Blood 130 mg/dL (70-110)
--- NOTE | 2024-03-11 08:11 | XR ---
EXAMINATION TYPE: XR chest 1V portable DATE OF EXAM: 03/11/2024 5:57 AM CLINICAL INDICATION:Female, 58 years old with history of Postop CABG; [facility] COMPARISON: Chest radiographs from 03/10/2024 TECHNIQUE: XR chest 1V portable Frontal view of the chest. FINDINGS: Lungs/Pleura: Blunting of left costophrenic angle. There is no evidence of pleural effusion, focal co nsolidation, or pneumothorax. Pulmonary vascularity: Pulmonary vascular congestion. Heart/mediastinum: Cardiomediastinal silhouette is unremarkable. Atherosclerotic calcifications are seen in the aorta. Left atrial appendage occlusion device is present. Musculoskeletal: No acute osseous pathology. Other findings: None Lines/Tubes: Right-sided PICC line with distal tip at the cavoatrial junction. Bilateral thoracotomy tubes are present without evidence of pneumothorax. IMPRESSION: 1. Postsurgical changes with mild pulmonary edema. No significant change from prior. 2. Small left pneumothorax.
--- NOTE | 2024-03-11 08:52 | P.PN ---
Subjective Progress Note Date: 03/11/24 Principal diagnosis: Triple-vessel coronary artery disease, non-STEMI this admission, acute systolic heart failure with reduced ejection fraction 35%, new onset ischemic cardiomyop athy, mild mitral valve regurgitation on AFRICA, acute on chronic kidney disease, acute anemia. History of hypertension, hyperlipidemia, hypothyroid, diabetes mellitus, CVA, hepatitis as a child, CKD stage IV, previous tobacco dependence with recent cessation, severe COPD, previous methamphetamine use with recent cessation, family history of coronary artery disease. POD #1 Off-pump CABG x 4 with sequential left internal mammary artery to left anterior descending coronary artery and diagonal coronary artery, reverse saphenous vein graft's to the posterior descending coronary artery and second o btuse marginal coronary artery, closure of the left atrial appendage with 35mm AtriCure clip, placement of percutaneous right femoral intra-aortic balloon pump, transesophageal echocardiogram performed by anesthesia. POD #4 ultrasound-guided right common femoral vein access and placement of central venous catheter for dialysis, acute kidney injury secondary to ATN secondary to cardiorenal syndrome. Initiation of hemodialysis on March 08, 2024. Postoperative acute blood loss anemia, expected secondary to hemodilution and preoperative anemia. Postoperative paroxysmal atrial fibrillation, a known common occurrence after cardiac surgery, not a complication. The patient was seen and examined in follow-up today 03/11/2024 at her bedside in the intensive care unit. The patient is currently sitting up to the bedside chair, is awake, alert, oriented 3 and is in no acute apparent distress. Denies any complaints of pain or shortness of breath at this time. She reports she had an episode of dizziness while ambulating yesterday and needed to sit down and recover. She denies any feelings of lightheadedness or dizziness this morning. Oxygen saturations are 94% on room air and she is achieving 1000 mL on her incentive spirometry with encouragement. Right and left pleural chest tubes remain in place to water seal. Right pleural chest tube draining thin serous drainage with 200 mL output in the last 8 hours and 300 mL output in the last 24 hours. Left pleural chest tube draining thin serous drainage with 200 mL output in the last 8 hours and 440 mL output in the last 24 hours. She remains hemodynamically stable and is currently on no inotropic or pressor support. Right groin hemodialysis catheter remains in place, she is scheduled for hemodialysis today. She has been afebrile the last 24 hours. Chest x-ray and laboratory results reviewed. The patient has been up ambulating in the intensive care unit hallway this morning and tolerated well. Objective - Vital Signs Vital signs: Vital Signs Temp 98.1 F 03/11/24 04:00 Pulse 58 L 03/11/24 07:00 Resp 15 03/11/24 07:00 BP 102/55 03/11/24 07:00 Pulse Ox 93 L 03/11/24 07:00 FiO2 40 02/26/24 16:39 Intake & Output 03/10/24 03/11/24 03/11/24 18:59 06:59 18:59 Intake Total 200 Output Total 790 680 20 Balance -590 -680 -20 Weight 85.2 kg Intake: Oral 200 Output: Chest Tube Drainage 550 430 0 Left Pleural Chest Tube 240 200 0 Right Pleural Chest Tube 310 230 0 Urine 240 250 20 Other: Voiding Method Indwelling Catheter Indwelling Catheter # Bowel Movements 1 ABP, PAP, CO, CI - Last Documented Arterial Blood Pressure 139/47 Pulmonary Artery Pressure 36/20 Cardiac Output 4.2 Cardiac Index 2.3 - Exam CONSTITUTIONAL: Sitting up to the bedside chair in the intensive care unit, appears comfortable, cooperative, no apparent acute distress. HEENT: Neck is supple, no JVD, no lymphadenopathy. RESPIRATORY: Lungs sounds essentially clear throughout, diminished to her bilateral bases. Respirations are symmetrical and nonlabored. Currently on room air with oxygen saturations 94%. Able to achieve 1000 mL on her incentive spirometry. Strong cough. CARDIOVASCULAR: Regular rhythm and rate. S1 and S2 present, negative for S3, gallop or murmur. Bedside telemetry showing normal sinus rhythm heart rate 61 bpm. Sternum is stable. Palpable peripheral pulses bilaterally. No calf pain or tenderness noted. Heart hugger in place with patient demonstrating appropriate use. Knee-high CRISTOBAL hose and sequential compression devices in place to her bilateral lower extremities. GASTROINTESTINAL: Abdomen soft, nontender, nondistended. Active bowel sounds present 4 quadrants. Passing flatus. No guarding or rigidity. Tolerating diet. Bowel movement on 03/10/2024. GENITOURINARY: Saldaña catheter in place for accurate I's and O's and urine retention. Urine output 210 mL in the last 8 hours. Right common femoral vein access, placement of central venous catheter for dialysis. 2000 mL of ultrafiltration with hemodialysis completed March 09, 2024. INTEGUMENTARY: Skin is warm and dry with no evidence of clubbing or cyanosis. Midline sternal incision clean dry and well approximated, covered with dry intact dressing. Left lower extremity EVH sites well approximated without redness or drainage. NEUROLOGIC: Cranial nerves II through XII intact. No focal deficits. MUSKULOSKELETAL: Able to move all extremities, strength equal bilaterally, generalized weakness. PSYCHIATRIC: Alert and oriented to person place and time, appropriate affect, intact judgment and insight. INVASIVE LINES AND TUBES: Left/right pleural chest tubes present and are to waterseal, no air leaks present. Left pleural chest tube drained 440 mL of thin serous drainage in the last 24 hours. Right pleural chest tube drained 300 mL of thin serous drainage in the last 24 hours. - Allied health notes Allied health notes reviewed: nursing - Labs CBC & Chem 7: 03/11/24 03:40 03/11/24 03:40 Labs: Abnormal Lab Results - Last 24 Hours (Table) 03/10/24 03/10/24 03/10/24 Range/Units 08:40 11:25 15:16 RBC (3.80-5.40) m/uL Hgb (11.4-16.0) gm/dL Hct (34.0-46.0) % MCHC (31.0-37.0) g/dL Sodium (137-145) mmol/L BUN (7-17) mg/dL Creatinine (0.52-1.04) mg/dL Glucose (74-99) mg/dL POC Glucose (mg/dL) 340 H 196 H 53 L (70-110) mg/dL Calcium (8.4-10.2) mg/dL 03/10/24 03/10/24 03/10/24 Range/Units 15:25 16:17 20:21 RBC (3.80-5.40) m/uL Hgb (11.4-16.0) gm/dL Hct (34.0-46.0) % MCHC (31.0-37.0) g/dL Sodium (137-145) mmol/L BUN (7-17) mg/dL Creatinine (0.52-1.04) mg/dL Glucose (74-99) mg/dL POC Glucose (mg/dL) 45 L* 67 L 130 H (70-110) mg/dL Calcium (8.4-10.2) mg/dL 03/11/24 03/11/24 03/11/24 Range/Units 03:40 03:40 06:28 RBC 2.76 L (3.80-5.40) m/uL Hgb 8.3 L (11.4-16.0) gm/dL Hct 27.2 L (34.0-46.0) % MCHC 30.6 L (31.0-37.0) g/dL Sodium 130 L (137-145) mmol/L BUN 59 H (7-17) mg/dL Creatinine 4.00 H (0.52-1.04) mg/dL Glucose 189 H (74-99) mg/dL POC Glucose (mg/dL) 319 H (70-110) mg/dL Calcium 7.8 L (8.4-10.2) mg/dL - Imaging and Cardiology Chest x-ray: report reviewed, image reviewed Assessment and Plan Assessment: Triple-vessel coronary artery disease, non-STEMI this admission, status post four-vessel off-pump coronary artery bypass grafting surgery Acute systolic heart failure with reduced ejection fraction, 20-25%, 35% on AFRICA New onset ischemic cardiomyopathy Moderate to severe mitral regurgitation on transthoracic echocardiogram, mild mitral regurgitation on AFRICA Acute on chronic kidney disease secondary to ATN secondary to cardiorenal syndrome, status post placement of ultrasound-guided right common femoral vein access, placement of central venous catheter for dialysis Acute anemia Hypertension Hyperlipidemia, treated, cholesterol 150, LDL 72.8 Hypothyroid, TSH 1.73 Diabetes mellitus, hemoglobin A1c 7.1% CVA Hepatitis as a child Chronic kidney disease Previous tobacco dependence with recent cessation Severe COPD, preoperative FEV1 27% of predicted Previous methamphetamine use with recent cessation Family history of coronary artery disease with sister having multiple stents Postoperative acute blood loss anemia, expected given hemodilution and preoper ative anemia Postoperative paroxysmal atrial fibrillation, a known common occurrence after cardiac surgery, not a complication, status post ligation of the left atrial appendage, currently normal sinus rhythm Plan: Continue to maximize medical therapy with aspirin, statin, Plavix, beta-alex. Will increase beta-alex as tolerated. Continue hydralazine and Isordil for afterload reduction with hold parameters. Continue oral amiodarone for A-fib prophylaxis, weekly taper, decreased to 200 mg BID March 05, 2024. Encourage incentive spirometry use 10 times every hour while awake. Bronchodilators per pulmonology. Increase activity, ambulate as tolerated. PT/OT/cardiac rehab following. Will monitor daily labs and chest x-rays. Electrolyte replacement per protocol. GI/DVT prophylaxis. Hemodialysis recommendations per nephrology. Hemodialysis is scheduled for today March 11, 2024. Patient will need permacath placement. Pain control per current medication regimen. Avoid Toradol due to kidney failure. Insulin management per internal medicine. Preoperative hemoglobin A1c 7.1%. Patient needs tight blood sugar control for infection prevention and promotion of healing. Continue pleural chest tubes due to high output, placed to water seal March 06, 2024. Discontinue Saldaña catheter for Voiding trial. Continue Flomax 0.4 mg p.o. daily. Bladder scan every 6 hours and when necessary postvoid residual, If greater than 300 mL of urine may straight cath. Continue to record strict accurate intake and output. Daily weights. Urology consult noted and appreciated. More recommendations to follow based on patient's clinical course. Time with Patient: Greater than 30
--- NOTE | 2024-03-11 09:33 | P.PN ---
Subjective Patient is seen in follow-up for acute kidney injury. Started on hemodialysis March 08, 2024. Has temporary dialysis catheter. Sitting in chair. Urine output remains low. Vital signs are stable. General: No acute distress. HEENT: Head exam is unremarkable. On nasal cannula. LUNGS: Chest tubes noted. HEART: Rate and Rhythm are regular. ABDOMEN: Nontender. EXTREMITITES: 2+ edema. Objective - Vital Signs Vital signs: Vital Signs Temp 98.1 F 03/11/24 04:00 Pulse 58 L 03/11/24 07:00 Resp 15 03/11/24 07:00 BP 102/55 03/11/24 07:00 Pulse Ox 93 L 03/11/24 07:00 FiO2 40 02/26/24 16:39 Intake & Output 03/10/24 03/11/24 03/11/24 18:59 06:59 18:59 Intake Total 200 Output Total 790 680 35 Balance -590 -680 -35 Weight 85.2 kg Intake: Oral 200 Output: Chest Tube Drainage 550 430 0 Left Pleural Chest Tube 240 200 0 Right Pleural Chest Tube 310 230 0 Urine 240 250 35 Other: Voiding Method Indwelling Catheter Indwelling Catheter # Bowel Movements 1 ABP, PAP, CO, CI - Last Documented Arterial Blood Pressure 139/47 Pulmonary Artery Pressure 36/20 Cardiac Output 4.2 Cardiac Index 2.3 - Labs CBC & Chem 7: 03/11/24 03:40 03/11/24 03:40 Labs: Abnormal Lab Results - Last 24 Hours (Table) 03/10/24 03/10/24 03/10/24 Range/Units 11:25 15:16 15:25 RBC (3.80-5.40) m/uL Hgb (11.4-16.0) gm/dL Hct (34.0-46.0) % MCHC (31.0-37.0) g/dL Sodium (137-145) mmol/L BUN (7-17) mg/dL Creatinine (0.52-1.04) mg/dL Glucose (74-99) mg/dL POC Glucose (mg/dL) 196 H 53 L 45 L* (70-110) mg/dL Calcium (8.4-10.2) mg/dL 03/10/24 03/10/24 03/11/24 Range/Units 16:17 20:21 03:40 RBC 2.76 L (3.80-5.40) m/uL Hgb 8.3 L (11.4-16.0) gm/dL Hct 27.2 L (34.0-46.0) % MCHC 30.6 L (31.0-37.0) g/dL Sodium (137-145) mmol/L BUN (7-17) mg/dL Creatinine (0.52-1.04) mg/dL Glucose (74-99) mg/dL POC Glucose (mg/dL) 67 L 130 H (70-110) mg/dL Calcium (8.4-10.2) mg/dL 03/11/24 03/11/24 Range/Units 03:40 06:28 RBC (3.80-5.40) m/uL Hgb (11.4-16.0) gm/dL Hct (34.0-46.0) % MCHC (31.0-37.0) g/dL Sodium 130 L (137-145) mmol/L BUN 59 H (7-17) mg/dL Creatinine 4.00 H (0.52-1.04) mg/dL Glucose 189 H (74-99) mg/dL POC Glucose (mg/dL) 319 H (70-110) mg/dL Calcium 7.8 L (8.4-10.2) mg/dL Assessment and Plan Plan: Assessment: 1. Acute kidney injury secondary to ATN secondary to cardiorenal syndrome. Also from hypotension. Started on hemodialysis March 08, 2024. Creatinine as low as 0.98 dated March 01, 2022. No hydronephrosis noted on kidney ultrasound. Serologies negative. 2. Acute on chronic systolic CHF with ejection fraction of 20 to 25% with moderate to severe mitral regurgitation and mild pulmonary hypertension. 3. Volume overload. 4. Anemia. Iron deficiency noted - s/p IV iron completed 03/02/24. Seen by GI. Status post blood transfusion this admission. Also received IV DDAVP. 5. Metabolic acidosis secondary to acute kidney injury and IV fluids. Better. 6. Hyponatremia secondary to acute kidney injury. Hypervolemic. Stable. 7. Urinary retention status post Saldaña catheter placement. Plan: Hemodialysis today and again tomorrow. Maintain Bumex. Will need permanent dialysis catheter placed this week. Avoid nephrotoxins. Continue to monitor renal function and urine output.
--- NOTE | 2024-03-11 11:49 | P.PN ---
Subjective Progress Note Date: 03/11/24 Principal diagnosis: Acute kidney injury Patient seen and examined today as a follow-up. She remains in the ICU. She is currently undergoing hemodialysis with temporary right femoral groin access. No difficulties with hemodialysis. Nephrology is recommending permacath placement this week. Objective - Vital Signs Vital signs: Vital Signs Temp 98.2 F 03/11/24 08:00 Pulse 63 03/11/24 09:00 Resp 20 03/11/24 09:00 BP 96/46 03/11/24 09:00 Pulse Ox 95 03/11/24 09:00 FiO2 40 02/26/24 16:39 Intake & Output 03/10/24 03/11/24 03/11/24 18:59 06:59 18:59 Intake Total 200 Output Total 790 680 35 Balance -590 -680 -35 Weight 85.2 kg Intake: Oral 200 Output: Chest Tube Drainage 550 430 0 Left Pleural Chest Tube 240 200 0 Right Pleural Chest Tube 310 230 0 Urine 240 250 35 Other: Voiding Method Indwelling Catheter Indwelling Catheter Indwelling Catheter # Bowel Movements 1 ABP, PAP, CO, CI - Last Documented Arterial Blood Pressure 139/47 Pulmonary Artery Pressure 36/20 Cardiac Output 4.2 Cardiac Index 2.3 - Exam General appearance: The patient is alert, oriented, appears in no acute distress. HET: Head is normocephalic and atraumatic. Pupils are equal and reactive. Neck: Supple. Heart: Regular. Lungs: Equal expansion, normal respiratory effort. Chest tubes in place. Abdomen: Soft, nontender, nondistended. Extremities: Normal skin color and turgor. Right groin HD catheter intact without any bleeding or hematoma. Neurological: Alert and oriented. - Labs CBC & Chem 7: 03/11/24 03:40 03/11/24 03:40 Labs: Abnormal Lab Results - Last 24 Hours (Table) 03/10/24 03/10/24 03/10/24 Range/Units 11:25 15:16 15:25 RBC (3.80-5.40) m/uL Hgb (11.4-16.0) gm/dL Hct (34.0-46.0) % MCHC (31.0-37.0) g/dL Sodium (137-145) mmol/L BUN (7-17) mg/dL Creatinine (0.52-1.04) mg/dL Glucose (74-99) mg/dL POC Glucose (mg/dL) 196 H 53 L 45 L* (70-110) mg/dL Calcium (8.4-10.2) mg/dL 03/10/24 03/10/24 03/11/24 Range/Units 16:17 20:21 03:40 RBC 2.76 L (3.80-5.40) m/uL Hgb 8.3 L (11.4-16.0) gm/dL Hct 27.2 L (34.0-46.0) % MCHC 30.6 L (31.0-37.0) g/dL Sodium (137-145) mmol/L BUN (7-17) mg/dL Creatinine (0.52-1.04) mg/dL Glucose (74-99) mg/dL POC Glucose (mg/dL) 67 L 130 H (70-110) mg/dL Calcium (8.4-10.2) mg/dL 03/11/24 03/11/24 Range/Units 03:40 06:28 RBC (3.80-5.40) m/uL Hgb (11.4-16.0) gm/dL Hct (34.0-46.0) % MCHC (31.0-37.0) g/dL Sodium 130 L (137-145) mmol/L BUN 59 H (7-17) mg/dL Creatinine 4.00 H (0.52-1.04) mg/dL Glucose 189 H (74-99) mg/dL POC Glucose (mg/dL) 319 H (70-110) mg/dL Calcium 7.8 L (8.4-10.2) mg/dL Assessment and Plan Assessment: Acute kidney injury, need for dialysis Plan: 1. Right femoral temporary dialysis catheter placed 2. Dialysis per recommendations from nephrology 3. Will plan for tunneled hemodialysis catheter placement sometime this week. Timing to be determined. Thank you for this consultation. The impression and plan of care has been dictated as directed. Dr. Saldaña I performed a history and examination of this patient, discussed the same with the dictator. I agree with the dictator's note ,documented as a scribe. Any additional findings or plans will be noted.
[2024-03-11 11:51] LABS: Glucose,Whole Blood 131 mg/dL (70-110)
--- NOTE | 2024-03-11 11:59 | P.PN ---
Subjective Progress Note Date: 03/11/24 Patient was reevaluated today on 03/10/2024, remains in the ICU, remains on room air, patient is now postoperative day #13 off pump CABG x 4 with sequential left internal mammary artery to left anterior descending coronary artery and diagonal coronary artery, reverse saphenous vein graft's to the posterior descending coronary artery and second obtuse marginal coronary artery, closure of the left atrial appendage with 35mm AtriCure clip patient remains in the ICU, doing fairly well, however continues to have bilateral pleural chest tubes in place, and significant amount of drainage noted in the last 24 hours and both tubes. 500 mL of drainage from the right-sided chest tube, and another 500 from the left-sided chest tube over the last 24 hours patient is not scheduled to undergo hemodialysis today. But she did have dialysis yesterday. Had 3 L removed yesterday. Clinically she is doing well, but considering her LV dysfunction her overall prognosis remains extremely poor and guarded. At this point no plans to remove any of the chest tubes considering her significant amount of drainage in the last 24 hours chest x-ray is reassuring there is evidence of tiny small biapical pneumothoraces. No air leak noted.WBC is 5.2 hemoglobin 8.7 electrolytes are normal BUN is 52 creatinine 3.54 The patient is seen today March 11, 2024 in follow-up in the intensive care unit. Postoperative day #14 following coronary bypass surgery. She is currently awake and alert in no acute distress. Sitting up in bed. She is maintaining O2 saturations in the 90s on room air. No IV fluids. She is to receive hemodialysis today with a goal of 2 L to be removed. Her bilateral chest tubes remain in place. The left chest tube drained another 200 mL of serous drainage while the right chest tube drained another 230 mL overnight. Chest x-ray reveals postsurgical changes with mild pulmonary edema. No significant change. Small left pneumothorax. She is status post 2 units of packed red blood cells this admission. Current hemoglobin 8.3. White count 5.3. Platelets 253. Sodium 130. Potassium 4.5. Bicarb 26. BUN 59. Creatinine 4.0. Glucose 189. She remains on DuoNeb ventilations, Symbicort. Working well with the incentive spirometer. Heparin for DVT prophylaxis. Remains on IV Bumex. Currently in a -1.2 L balance Objective - Vital Signs Vital signs: Vital Signs Temp 98.2 F 03/11/24 08:00 Pulse 63 03/11/24 09:00 Resp 20 03/11/24 09:00 BP 96/46 03/11/24 09:00 Pulse Ox 95 03/11/24 09:00 FiO2 40 02/26/24 16:39 Intake & Output 03/10/24 03/11/24 03/11/24 18:59 06:59 18:59 Intake Total 200 Output Total 790 680 35 Balance -590 -680 -35 Weight 85.2 kg Intake: Oral 200 Output: Chest Tube Drainage 550 430 0 Left Pleural Chest Tube 240 200 0 Right Pleural Chest Tube 310 230 0 Urine 240 250 35 Other: Voiding Method Indwelling Catheter Indwelling Catheter Indwelling Catheter # Bowel Movements 1 ABP, PAP, CO, CI - Last Documented Arterial Blood Pressure 139/47 Pulmonary Artery Pressure 36/20 Cardiac Output 4.2 Cardiac Index 2.3 - Exam GENERAL EXAM: Alert, 58-year-old female, resting in bed, on room air, in no apparent distress. HEAD: Normocephalic and atraumatic EYES: Normal reaction of pupils, equal size. NOSE: Clear with pink turbinates. THROAT: No erythema or exudates. NECK: No masses, no JVD. CHEST: Sternal incision clean dry and well-approximated. Heart hugger in place. Bilateral chest tubes in place to Pleur-evac LUNGS: Equal air entry with bibasilar crackles and mild and expiratory wheezes heard bilaterally. CVS: S1 and S2 normal with no audible murmur, regular rhythm. No extra heart sounds ABDOMEN: No hepatosplenomegaly, active bowel sounds, no guarding or rigidity. SPINE: No scoliosis or deformity SKIN: No rashes CENTRAL NERVOUS SYSTEM: No focal deficits, tone is normal in all 4 extremities. EXTREMITIES: There is lower extremity pitting edema, 1-2+ bilaterally. No clubbing, or cyanosis. Peripheral pulses are intact. - Labs CBC & Chem 7: 03/11/24 03:40 03/11/24 03:40 Labs: Abnormal Lab Results - Last 24 Hours (Table) 03/10/24 03/10/24 03/10/24 Range/Units 15:16 15:25 16:17 RBC (3.80-5.40) m/uL Hgb (11.4-16.0) gm/dL Hct (34.0-46.0) % MCHC (31.0-37.0) g/dL Sodium (137-145) mmol/L BUN (7-17) mg/dL Creatinine (0.52-1.04) mg/dL Glucose (74-99) mg/dL POC Glucose (mg/dL) 53 L 45 L* 67 L (70-110) mg/dL Calcium (8.4-10.2) mg/dL 03/10/24 03/11/24 03/11/24 Range/Units 20:21 03:40 03:40 RBC 2.76 L (3.80-5.40) m/uL Hgb 8.3 L (11.4-16.0) gm/dL Hct 27.2 L (34.0-46.0) % MCHC 30.6 L (31.0-37.0) g/dL Sodium 130 L (137-145) mmol/L BUN 59 H (7-17) mg/dL Creatinine 4.00 H (0.52-1.04) mg/dL Glucose 189 H (74-99) mg/dL POC Glucose (mg/dL) 130 H (70-110) mg/dL Calcium 7.8 L (8.4-10.2) mg/dL 03/11/24 Range/Units 06:28 RBC (3.80-5.40) m/uL Hgb (11.4-16.0) gm/dL Hct (34.0-46.0) % MCHC (31.0-37.0) g/dL Sodium (137-145) mmol/L BUN (7-17) mg/dL Creatinine (0.52-1.04) mg/dL Glucose (74-99) mg/dL POC Glucose (mg/dL) 319 H (70-110) mg/dL Calcium (8.4-10.2) mg/dL Assessment and Plan Assessment: Acute non-ST elevation [place]. Cardiac catheterization from 02/16/2024 revealed calcified coronary arteries. Severe triple-vessel disease. Status post off- pump CABG x 4 with sequential left internal mammary artery to left anterior descending coronary artery and diagonal coronary artery, reverse saphenous vein graft's to the posterior descending coronary artery and second obtuse marginal coronary artery, closure of the left atrial appendage with 35mm AtriCure clip on 02/26/2024 Acute hypoxemic respiratory failure, recovered and currently on room air, secondary to exacerbation of systolic congestive heart failure Ischemic cardiomyopathy with an estimated left ventricular ejection fraction severely impaired at 20 to 25% as well as moderate to severe mitral valve regurgitation Severe mitral valve regurgitation Acute febrile illness, recovered Normocytic normochromic anemia, current hemoglobin 8.3, received 2 units of packed red blood cell Acute kidney injury, likely cardiorenal, current creatinine 4.00. Initiated on hemodialysis will need permacath placement Metabolic non-anion gap acidosis, secondary to above Chronic obstructive pulmonary disease, stable Diabetes mellitus type 1 History of hyperlipidemia History of hypertension History of CVA/TIA History of hypothyroidism History of fibromyalgia History of GERD Mildly elevated LFTs, hepatitis panel nonreactive Former tobacco smoker, 1/2 pack/day or approximately 15-year pack history Plan: The patient was seen and evaluated Chest x-ray, labs and medications reviewed Stable and on air Working well with the incentive spirometer Currently receiving hemodialysis with a goal of 2 L to be removed Chest tubes remain in place with serous drainage Remains on IV Bumex We will continue to follow I have personally seen and examined the patient, performed the documentation and the assessment and plan as written. Number of minutes spent on the visit: 10.
[2024-03-11 16:49] LABS: Glucose,Whole Blood 167 mg/dL (70-110)
[2024-03-11 20:10] LABS: Glucose,Whole Blood 405 mg/dL (70-110)
[2024-03-11 21:04] LABS: Glucose,Whole Blood 437 mg/dL (70-110)
[2024-03-11] MEDS: INSULIN REGULAR 100 UNIT in SODIUM CHLORIDE 0.9% 100 ML IV SCH (21:05)
[2024-03-11 21:59] LABS: Glucose,Whole Blood 427 mg/dL (70-110)
--- NOTE | 2024-03-11 23:12 | PN ---
PROGRESS NOTE DATE OF SERVICE: 03/11/2024 SUBJECTIVE: This 58-year-old woman was admitted after CAD, CABG, also had renal failure. The patient is undergoing hemodialysis. The patient has also significant chest tube drainage. The patient also had significant hypoalbuminemia, also creatinine is 4 today. PAST MEDICAL HISTORY: Reviewed. REVIEW OF SYSTEMS: A 14-point review is negative except mentioned earlier. CURRENT MEDICATIONS: Cordarone, dose and rest of medications noted. OBJECTIVE: VITAL SIGNS: Pulse is 62, blood pressure 98/47, respirations 16. CHEST: Few scattered rhonchi and crackles. ABDOMEN: Soft, nontender. LEGS: No edema, no swelling. NERVOUS SYSTEM: Nonfocal. LABORATORY DATA: Hemoglobin 8.2, rest of the labs are noted, glucose fluctuating. ASSESSMENT: 1. CAD, status post CABG. 2. CHF acute exacerbation, ejection fraction 20% to 25%. 3. Chest tube drainage. 4. Acute on chronic kidney disease with cardiorenal syndrome, on hemodialysis. 5. Hypoalbuminemia. 6. Diabetes mellitus type 2, brittle. 7. Multiple complex medical issues. RECOMMENDATIONS: Recommended to continue current management, continue symptomatic treatment. Otherwise, continue with protein supplementation. The patient is on Levemir 20 subcu daily. The blood sugars are 93 only yesterday evening. We will continue to monitor the labile blood glucose for 1 more day and then make some adjustments. Further recommendations to follow. The risk of hypoglycemia is high. MMODL / SUKHWINDERN: [id number] /
[2024-03-11 23:14] LABS: Glucose,Whole Blood 416 mg/dL (70-110)
[2024-03-12 00:02] LABS: Glucose,Whole Blood 282 mg/dL (70-110)
[2024-03-12 01:04] LABS: Glucose,Whole Blood 187 mg/dL (70-110)
[2024-03-12 02:05] LABS: Glucose,Whole Blood 84 mg/dL (70-110)
[2024-03-12 02:44] LABS: Glucose,Whole Blood 73 mg/dL (70-110)
[2024-03-12 03:08] LABS: Glucose,Whole Blood 82 mg/dL (70-110)
[2024-03-12 04:16] LABS: Glucose,Whole Blood 100 mg/dL (70-110)
[2024-03-12 05:05] LABS: Glucose,Whole Blood 140 mg/dL (70-110)
[2024-03-12] MEDS: ZINC OXIDE PASTE (Z-GUARD) 1 APPLIC TOPICAL PRN (05:50)
[2024-03-12 06:22] LABS: Glucose,Whole Blood 210 mg/dL (70-110)
[2024-03-12 06:55] LABS: HCT 28.2 % (34.0-46.0); HGB 8.4 gm/dL (11.4-16.0); Hypochromasia Marked; MCH 29.4 pg (25.0-35.0); MCHC 29.7 g/dL (31.0-37.0); Macrocytosis Slight; Mean Platelet Volume 8.1; Platelet Count 219 k/uL (150-450); RBC 2.85 m/uL (3.80-5.40); RDW 14.8 % (11.5-15.5); WBC 5.9 k/uL (3.8-10.6)
[2024-03-12 07:10] LABS: ALT 40 U/L (4-34); AST 127 U/L (14-36); African American GFR (CKD) 17 (>60 ml/min/1.73 sqM); Albumin 2.4 g/dL (3.5-5.0); Alkaline Phosphatase 249 U/L (38-126); Anion Gap 3 mmol/L; Blood Urea Nitrogen 46 mg/dL (7-17); Calcium 7.8 mg/dL (8.4-10.2); Carbon Dioxide 26 mmol/L (22-30); Chloride 101 mmol/L (98-107); Glucose 180 mg/dL (74-99); Magnesium 1.7 mg/dL (1.6-2.3); Non-African American GFR(CKD) 15 (>60 ml/min/1.73 sqM); Potassium 4.6 mmol/L (3.5-5.1); Sodium 130 mmol/L (137-145); Total Bilirubin 0.4 mg/dL (0.2-1.3); Total Protein 4.9 g/dL (6.3-8.2)
[2024-03-12] MEDS: AMIODARONE 200 MG TAB PO SCH (08:41)
[2024-03-12] MEDS: MAGNESIUM OXIDE 400 MG TAB PO SCH (08:41)
--- NOTE | 2024-03-12 08:57 | P.PN ---
Subjective Progress Note Date: 03/12/24 Principal diagnosis: Triple-vessel coronary artery disease, non-STEMI this admission, acute systolic heart failure with reduced ejection fraction 35%, new onset ischemic cardiomyop athy, mild mitral valve regurgitation on [place], acute on chronic kidney disease, acute anemia. History of hypertension, hyperlipidemia, hypothyroid, diabetes mellitus, CVA, hepatitis as a child, CKD stage IV, previous tobacco dependence with recent cessation, severe COPD, previous methamphetamine use with recent cessation, family history of coronary artery disease. POD #15 Off-pump CABG x 4 with sequential left internal mammary artery to left anterior descending coronary artery and diagonal coronary artery, reverse saphenous vein graft's to the posterior descending coronary artery and second obtuse marginal coronary artery, closure of the left atrial appendage with 35mm AtriCure clip, placement of percutaneous right femoral intra-aortic balloon pump, transesophageal echocardiogram performed by anesthesia. POD #5 ultrasound-guided right common femoral vein access and placement of central venous catheter for dialysis, acute kidney injury secondary to ATN secondary to cardiorenal syndrome. Initiation of hemodialysis on March 08, 2024. Postoperative acute blood loss anemia, expected secondary to hemodilution and preoperative anemia. Postoperative paroxysmal atrial fibrillation, a known common occurrence after cardiac surgery, not a complication. The patient was seen and examined in follow-up today March 12, 2024 at her bedside in the intensive care unit. She is currently sitting up to the bedside chair, is awake, alert, oriented x 3 and is in no acute apparent distress. She denies any complaints of pain or shortness of breath at this time. She reports she has been up ambulating in the intensive care unit hallway with standby assistance from nursing and therapy staff and tolerating well, and was stating that she has walked from her room to the end of the collins window which has been an improvement over the past couple of days. Oxygen saturations are 94% on room air and she is achieving 1000 mL on her incentive spirometry with encouragement. Bedside telemetry is showing normal sinus rhythm with bundle branch block heart rate 61 bpm. She remains hemodynamically stable and is currently on no inotropic or pressor support. Left and right pleural chest tubes remain in place to waterseal. No air leak is present. Left pleural chest tube draining thin serous drainage with 200 mL output in the last 24 hours, right pleural chest tube draining thin serous drainage with 250 mL output in the last 24 hours. Hemodialysis was completed yesterday with 2.5 L ultrafiltration completed, patient tolerated well. Saldaña catheter was removed without incident yesterday, postvoid residual was 200 mL this morning, 150 mL of urine output in the last 8 hours. The patient is scheduled to receive hemodialysis this morning managed by nephrology. Laboratory and chest x-ray results were reviewed. Objective - Vital Signs Vital signs: Vital Signs Temp 98.8 F 03/12/24 04:00 Pulse 63 03/12/24 07:00 Resp 28 H 03/12/24 07:00 BP 113/57 03/12/24 07:00 Pulse Ox 93 L 03/12/24 07:00 FiO2 40 02/26/24 16:39 Intake & Output 03/11/24 03/12/24 03/12/24 18:59 06:59 18:59 Intake Total 1220 866.995 Output Total 3255 490 0 Balance -2035 376.995 0 Weight 84.4 kg Intake: Intake, IV Titration 46.995 Amount Insulin Regular 100 unit 46.995 In Sodium Chloride 0.9% 100 ml @ Titrate IV .Q0M [facility] Rx#:[id number] Oral 720 820 Hemodialysis 500 Output: Chest Tube Drainage 690 140 Left Pleural Chest Tube 290 80 Right Pleural Chest Tube 400 60 Urine 35 150 0 Post Void Residual 30 200 Hemodialysis 2500 Other: Voiding Method Indwelling Catheter Toilet # Voids 0 ABP, PAP, CO, CI - Last Documented Arterial Blood Pressure 139/47 Pulmonary Artery Pressure 36/20 Cardiac Output 4.2 Cardiac Index 2.3 - Exam CONSTITUTIONAL: Sitting up to the bedside chair in the intensive care unit, appears comfortable, cooperative, no apparent acute distress. HEENT: Neck is supple, no JVD, no lymphadenopathy. RESPIRATORY: Lungs sounds essentially clear throughout, diminished to her bilateral bases. Respirations are symmetrical and nonlabored. Currently on room air with oxygen saturations 94%. Able to achieve 1000 mL on her incentive spirometry. Strong cough. CARDIOVASCULAR: Regular rhythm and rate. S1 and S2 present, negative for S3, gallop or murmur. Bedside telemetry showing normal sinus rhythm with bundle branch block, heart rate 61 bpm. Sternum is stable. Palpable peripheral pulses bilaterally. No calf pain or tenderness noted. Heart hugger in place with patient demonstrating appropriate use. Knee-high CRISTOBAL hose and sequential compression devices in place to her bilateral lower extremities. GASTROINTESTINAL: Abdomen soft, nontender, nondistended. Active bowel sounds present 4 quadrants. Passing flatus. No guarding or rigidity. Tolerating diet. Bowel movement on 03/10/2024. GENITOURINARY: Continues to void. Urine output 150 mL mL in the last 8 hours. Right common femoral vein access, placement of central venous catheter for dialysis. 2500 mL of ultrafiltration with hemodialysis completed yesterday March 11, 2024. INTEGUMENTARY: Skin is warm and dry with no evidence of clubbing or cyanosis. Midline sternal incision clean dry and well approximated, covered with dry intact dressing. Left lower extremity EVH sites well approximated without redness or drainage. NEUROLOGIC: Cranial nerves II through XII intact. No focal deficits. MUSKULOSKELETAL: Able to move all extremities, strength equal bilaterally, generalized weakness. PSYCHIATRIC: Alert and oriented to person place and time, appropriate affect, intact judgment and insight. INVASIVE LINES AND TUBES: Left/right pleural chest tubes present and are to waterseal, no air leaks present. Left pleural chest tube drained 200 mL of thin serous drainage in the last 24 hours. Right pleural chest tube drained 250 mL of thin serous drainage in the last 24 hours. - Allied health notes Allied health notes reviewed: nursing - Labs CBC & Chem 7: 03/12/24 06:25 03/12/24 06:25 Labs: Abnormal Lab Results - Last 24 Hours (Table) 03/11/24 03/11/24 03/11/24 Range/Units 11:50 16:48 20:09 RBC (3.80-5.40) m/uL Hgb (11.4-16.0) gm/dL Hct (34.0-46.0) % MCHC (31.0-37.0) g/dL Sodium (137-145) mmol/L BUN (7-17) mg/dL Creatinine (0.52-1.04) mg/dL Glucose (74-99) mg/dL POC Glucose (mg/dL) 131 H 167 H 405 H (70-110) mg/dL Calcium (8.4-10.2) mg/dL AST (14-36) U/L ALT (4-34) U/L Alkaline Phosphatase (38-126) U/L Total Protein (6.3-8.2) g/dL Albumin (3.5-5.0) g/dL 03/11/24 03/11/24 03/11/24 Range/Units 21:02 21:57 23:01 RBC (3.80-5.40) m/uL Hgb (11.4-16.0) gm/dL Hct (34.0-46.0) % MCHC (31.0-37.0) g/dL Sodium (137-145) mmol/L BUN (7-17) mg/dL Creatinine (0.52-1.04) mg/dL Glucose (74-99) mg/dL POC Glucose (mg/dL) 437 H 427 H 416 H (70-110) mg/dL Calcium (8.4-10.2) mg/dL AST (14-36) U/L ALT (4-34) U/L Alkaline Phosphatase (38-126) U/L Total Protein (6.3-8.2) g/dL Albumin (3.5-5.0) g/dL 03/12/24 03/12/24 03/12/24 Range/Units 00:00 01:02 05:04 RBC (3.80-5.40) m/uL Hgb (11.4-16.0) gm/dL Hct (34.0-46.0) % MCHC (31.0-37.0) g/dL Sodium (137-145) mmol/L BUN (7-17) mg/dL Creatinine (0.52-1.04) mg/dL Glucose (74-99) mg/dL POC Glucose (mg/dL) 282 H 187 H 140 H (70-110) mg/dL Calcium (8.4-10.2) mg/dL AST (14-36) U/L ALT (4-34) U/L Alkaline Phosphatase (38-126) U/L Total Protein (6.3-8.2) g/dL Albumin (3.5-5.0) g/dL 03/12/24 03/12/24 03/12/24 Range/Units 06:21 06:25 06:25 RBC 2.85 L (3.80-5.40) m/uL Hgb 8.4 L (11.4-16.0) gm/dL Hct 28.2 L (34.0-46.0) % MCHC 29.7 L (31.0-37.0) g/dL Sodium 130 L (137-145) mmol/L BUN 46 H (7-17) mg/dL Creatinine 3.31 H (0.52-1.04) mg/dL Glucose 180 H (74-99) mg/dL POC Glucose (mg/dL) 210 H (70-110) mg/dL Calcium 7.8 L (8.4-10.2) mg/dL AST 127 H (14-36) U/L ALT 40 H (4-34) U/L Alkaline Phosphatase 249 H (38-126) U/L Total Protein 4.9 L (6.3-8.2) g/dL Albumin 2.4 L (3.5-5.0) g/dL - Imaging and Cardiology Chest x-ray: report reviewed, image reviewed Assessment and Plan Assessment: Triple-vessel coronary artery disease, non-STEMI this admission, status post four-vessel off-pump coronary artery bypass grafting surgery Acute systolic heart failure with reduced ejection fraction, 20-25%, 35% on [place] New onset ischemic cardiomyopathy Moderate to severe mitral regurgitation on transthoracic echocardiogram, mild mitral regurgitation on A[place] Acute on chronic kidney disease secondary to ATN secondary to cardiorenal syndrome, status post placement of ultrasound-guided right common femoral vein access, placement of central venous catheter for dialysis Acute anemia Hypertension Hyperlipidemia, treated, cholesterol 150, LDL 72.8 Hypothyroid, TSH 1.73 Diabetes mellitus, hemoglobin A1c 7.1% CVA Hepatitis as a child Chronic kidney disease Previous tobacco dependence with recent cessation Severe COPD, preoperative FEV1 27% of predicted Previous methamphetamine use with recent cessation Family history of coronary artery disease with sister having multiple stents Postoperative acute blood loss anemia, expected given hemodilution and pre operative anemia Postoperative paroxysmal atrial fibrillation, a known common occurrence after cardiac surgery, not a complication, status post ligation of the left atrial appendage, currently normal sinus rhythm Preoperative urine retention, postoperative urinary retention, unspecified requiring placement of Saldaña catheter, bladder scan every [address] Medical debility Plan: Continue to maximize medical therapy with aspirin, statin, Plavix, beta-alex. Will increase beta-alex as tolerated. Continue hydralazine and Isordil for afterload reduction with hold parameters. Continue oral amiodarone for A-fib prophylaxis, weekly taper, decreased to 200 mg daily today March 12, 2024. Encourage incentive spirometry use 10 times every hour while awake. Bronch odilators per pulmonology. Increase activity, ambulate as tolerated. PT/OT/cardiac rehab following. Will monitor daily labs and chest x-rays. Electrolyte replacement per protocol. GI/DVT prophylaxis. Hemodialysis recommendations per nephrology. Hemodialysis is scheduled for today March 12, 2024. Patient is scheduled for permacath placement today March 12, 2024. Pain control per current medication regimen. Avoid Toradol due to kidney failure. Insulin management per internal medicine. Preoperative hemoglobin A1c 7.1%. Patient needs tight blood sugar control for infection prevention and promotion of healing. Continue left pleural chest tube to waterseal, continue to record strict output. Right pleural chest tube was removed today after permacath placement. Continue Flomax 0.4 mg p.o. daily. Bladder scan every 6 hours and when necessary postvoid residual, If greater than 300 mL of urine may straight cath. Continue to record strict accurate intake and output. Daily weights. Consult to inpatient rehab has been ordered. More recommendations to follow based on patient's clinical course. Time with Patient: Greater than 30
--- NOTE | 2024-03-12 09:00 | XR ---
EXAMINATION TYPE: XR chest 1V portable DATE OF EXAM: 03/12/2024 5:35 AM CLINICAL INDICATION:Female, 58 years old with history of Postoperative CABG; H COMPARISON: Chest radiograph from one day prior. TECHNIQUE: XR chest 1V portable Frontal view of the chest. FINDINGS: Lungs/Pleura: Blunting of left costophrenic angle. Trace left pneumothorax. No right pneumothorax. Th ere is no evidence of pleural effusion, focal consolidation. Pulmonary vascularity: Pulmonary vascular congestion. Heart/mediastinum: Cardiomediastinal silhouette is unremarkable. Atherosclerotic calcifications are seen in the aorta. Left atrial appendage occlusion device is present. Musculoskeletal: No acute osseous pathology. Other findings: None Lines/Tubes: Right-sided PICC line with distal tip at the cavoatrial junction. Bilateral thoracotomy tubes are present without evidence of right pneumothorax. There may be trace le ft pneumothorax.. IMPRESSION: 1. Postsurgical changes with mild pulmonary edema. No significant change from prior. 2. Small left pneumothorax.
--- NOTE | 2024-03-12 09:00 | P.PN ---
Subjective Patient is seen in follow-up for acute kidney injury. Started on hemodialysis March 08, 2024. Has temporary dialysis catheter. Scheduled for permacath today. Hemodynamically stable. Vital signs are stable. General: No acute distress. HEENT: Head exam is unremarkable. On nasal cannula. LUNGS: Chest tubes noted. HEART: Rate and Rhythm are regular. ABDOMEN: Nontender. EXTREMITITES: 1+ edema. Objective - Vital Signs Vital signs: Vital Signs Temp 98.8 F 03/12/24 04:00 Pulse 63 03/12/24 07:00 Resp 28 H 03/12/24 07:00 BP 113/57 03/12/24 07:00 Pulse Ox 93 L 03/12/24 07:00 FiO2 40 02/26/24 16:39 Intake & Output 03/11/24 03/12/24 03/12/24 18:59 06:59 18:59 Intake Total 1220 866.995 Output Total 3255 490 0 Balance -2035 376.995 0 Weight 84.4 kg Intake: Intake, IV Titration 46.995 Amount Insulin Regular 100 unit 46.995 In Sodium Chloride 0.9% 100 ml @ Titrate IV .Q0M [facility] Rx#:[id number] Oral 720 820 Hemodialysis 500 Output: Chest Tube Drainage 690 140 Left Pleural Chest Tube 290 80 Right Pleural Chest Tube 400 60 Urine 35 150 0 Post Void Residual 30 200 Hemodialysis 2500 Other: Voiding Method Indwelling Catheter Toilet # Voids 0 ABP, PAP, CO, CI - Last Documented Arterial Blood Pressure 139/47 Pulmonary Artery Pressure 36/20 Cardiac Output 4.2 Cardiac Index 2.3 - Labs CBC & Chem 7: 03/12/24 06:25 03/12/24 06:25 Labs: Abnormal Lab Results - Last 24 Hours (Table) 03/11/24 03/11/24 03/11/24 Range/Units 11:50 16:48 20:09 RBC (3.80-5.40) m/uL Hgb (11.4-16.0) gm/dL Hct (34.0-46.0) % MCHC (31.0-37.0) g/dL Sodium (137-145) mmol/L BUN (7-17) mg/dL Creatinine (0.52-1.04) mg/dL Glucose (74-99) mg/dL POC Glucose (mg/dL) 131 H 167 H 405 H (70-110) mg/dL Calcium (8.4-10.2) mg/dL AST (14-36) U/L ALT (4-34) U/L Alkaline Phosphatase (38-126) U/L Total Protein (6.3-8.2) g/dL Albumin (3.5-5.0) g/dL 03/11/24 03/11/24 03/11/24 Range/Units 21:02 21:57 23:01 RBC (3.80-5.40) m/uL Hgb (11.4-16.0) gm/dL Hct (34.0-46.0) % MCHC (31.0-37.0) g/dL Sodium (137-145) mmol/L BUN (7-17) mg/dL Creatinine (0.52-1.04) mg/dL Glucose (74-99) mg/dL POC Glucose (mg/dL) 437 H 427 H 416 H (70-110) mg/dL Calcium (8.4-10.2) mg/dL AST (14-36) U/L ALT (4-34) U/L Alkaline Phosphatase (38-126) U/L Total Protein (6.3-8.2) g/dL Albumin (3.5-5.0) g/dL 03/12/24 03/12/24 03/12/24 Range/Units 00:00 01:02 05:04 RBC (3.80-5.40) m/uL Hgb (11.4-16.0) gm/dL Hct (34.0-46.0) % MCHC (31.0-37.0) g/dL Sodium (137-145) mmol/L BUN (7-17) mg/dL Creatinine (0.52-1.04) mg/dL Glucose (74-99) mg/dL POC Glucose (mg/dL) 282 H 187 H 140 H (70-110) mg/dL Calcium (8.4-10.2) mg/dL AST (14-36) U/L ALT (4-34) U/L Alkaline Phosphatase (38-126) U/L Total Protein (6.3-8.2) g/dL Albumin (3.5-5.0) g/dL 03/12/24 03/12/24 03/12/24 Range/Units 06:21 06:25 06:25 RBC 2.85 L (3.80-5.40) m/uL Hgb 8.4 L (11.4-16.0) gm/dL Hct 28.2 L (34.0-46.0) % MCHC 29.7 L (31.0-37.0) g/dL Sodium 130 L (137-145) mmol/L BUN 46 H (7-17) mg/dL Creatinine 3.31 H (0.52-1.04) mg/dL Glucose 180 H (74-99) mg/dL POC Glucose (mg/dL) 210 H (70-110) mg/dL Calcium 7.8 L (8.4-10.2) mg/dL AST 127 H (14-36) U/L ALT 40 H (4-34) U/L Alkaline Phosphatase 249 H (38-126) U/L Total Protein 4.9 L (6.3-8.2) g/dL Albumin 2.4 L (3.5-5.0) g/dL Assessment and Plan Plan: Assessment: 1. Acute kidney injury secondary to ATN secondary to cardiorenal syndrome. Also from hypotension. Started on hemodialysis March 08, 2024. Creatinine as low as 0.98 dated March 01, 2022. No hydronephrosis noted on kidney ultrasound. Serologies negative. 2. Acute on chronic systolic CHF with ejection fraction of 20 to 25% with moderate to severe mitral regurgitation and mild pulmonary hypertension. 3. Volume overload. Improving with ultrafiltration. 4. Anemia. Iron deficiency noted - s/p IV iron completed 03/02/24. Seen by GI. Status post blood transfusion this admission. Also received IV DDAVP. On Sheri nesp. 5. Metabolic acidosis secondary to acute kidney injury and IV fluids. Better. 6. Hyponatremia secondary to acute kidney injury. Hypervolemic. Stable. 7. Urinary retention status post [place] catheter placement. Plan: Continue with daily dialysis for now mostly for ultrafiltration. Stop IV Bumex. Add torsemide 40 mg once daily. Permacath to be placed today. Avoid nephrotoxins. Continue to monitor renal function and urine output. Check phosphorus level. manager gas to set up outpatient hemodialysis.
--- NOTE | 2024-03-12 10:40 | P.PN ---
Subjective Progress Note Date: 03/12/24 Patient was reevaluated today on 03/10/2024, remains in the ICU, remains on room air, patient is now postoperative day #13 off pump CABG x 4 with sequential left internal mammary artery to left anterior descending coronary artery and diagonal coronary artery, reverse saphenous vein graft's to the posterior descending coronary artery and second obtuse marginal coronary artery, closure of the left atrial appendage with 35mm AtriCure clip patient remains in the ICU, doing fairly well, however continues to have bilateral pleural chest tubes in place, and significant amount of drainage noted in the last 24 hours and both tubes. 500 mL of drainage from the right-sided chest tube, and another 500 from the left-sided chest tube over the last 24 hours patient is not scheduled to undergo hemodialysis today. But she did have dialysis yesterday. Had 3 L removed yesterday. Clinically she is doing well, but considering her LV dysfunction her overall prognosis remains extremely poor and guarded. At this point no plans to remove any of the chest tubes considering her significant amount of drainage in the last 24 hours chest x-ray is reassuring there is evidence of tiny small biapical pneumothoraces. No air leak noted.WBC is 5.2 hemoglobin 8.7 electrolytes are normal BUN is 52 creatinine 3.54 The patient is seen today March 11, 2024 in follow-up in the intensive care unit. Postoperative day #14 following coronary bypass surgery. She is currently awake and alert in no acute distress. Sitting up in bed. She is maintaining O2 saturations in the 90s on room air. No IV fluids. She is to receive hemodialysis today with a goal of 2 L to be removed. Her bilateral chest tubes remain in place. The left chest tube drained another 200 mL of serous drainage while the right chest tube drained another 230 mL overnight. Chest x-ray reveals postsurgical changes with mild pulmonary edema. No significant change. Small left pneumothorax. She is status post 2 units of packed red blood cells this admission. Current hemoglobin 8.3. White count 5.3. Platelets 253. Sodium 130. Potassium 4.5. Bicarb 26. BUN 59. Creatinine 4.0. Glucose 189. She remains on DuoNeb ventilations, Symbicort. Working well with the incentive spirometer. Heparin for DVT prophylaxis. Remains on IV Bumex. Currently in a -1.2 L balance The patient is seen today March 12, 2024 in follow-up in the intensive care unit. Postoperative day #15. She is currently resting in bed. Awake and alert in no acute distress. She is maintaining good O2 saturations in the 90s on room air. The plan is for the right-sided chest tube to be removed today and possibly the left-sided 1 to be removed tomorrow. She is going for permacath today. She received hemodialysis yesterday with 2 L removed. Receiving hemodialysis again today with a goal of 2 L as well. Chest x-ray reveals surgical changes with mild pulmonary edema. Small left-sided pneumothorax. She has received 2 units of packed red blood cells this admission. Current hemoglobin 8.4. Platelets 219. White count 5.9. Sodium 130. Potassium 4.6. Bicarb 26. BUN 46. Creatinine 3.31. Glucose 180. She remains on bronchodilators. Heparin for DVT prophylaxis. Transitioned to oral Demadex, currently in a -1.6 L balance. Objective - Vital Signs Vital signs: Vital Signs Temp 97.8 F 03/12/24 08:00 Pulse 61 03/12/24 10:00 Resp 12 03/12/24 10:00 BP 110/44 03/12/24 10:00 Pulse Ox 93 L 03/12/24 10:00 FiO2 40 02/26/24 16:39 Intake & Output 03/11/24 03/12/24 03/12/24 18:59 06:59 18:59 Intake Total 1220 866.995 Output Total 3255 490 90 Balance -2034 376.995 -90 Weight 84.4 kg Intake: Intake, IV Titration 46.995 Amount Insulin Regular 100 unit 46.995 In Sodium Chloride 0.9% 100 ml @ Titrate IV .Q0M [facility] Rx#:[id number] Oral 720 820 Hemodialysis 500 Output: Chest Tube Drainage 690 140 90 Left Pleural Chest Tube 290 80 30 Right Pleural Chest Tube 400 60 60 Urine 35 150 0 Post Void Residual 30 200 Hemodialysis 2500 Other: Voiding Method Indwelling Catheter Toilet # Voids 0 ABP, PAP, CO, CI - Last Documented Arterial Blood Pressure 139/47 Pulmonary Artery Pressure 36/20 Cardiac Output 4.2 Cardiac Index 2.3 - Exam GENERAL EXAM: Alert, pleasant 58-year-old female, on room air, in no apparent distress. HEAD: Normocephalic and atraumatic EYES: Normal reaction of pupils, equal size. NOSE: Clear with pink turbinates. THROAT: No erythema or exudates. NECK: No masses, no JVD. CHEST: Sternal dressing dry and intact. Heart hugger in place. Bilateral chest tubes in place to Pleur-evac LUNGS: Equal air entry with bibasilar crackles and mild and expiratory wheezes heard bilaterally. CVS: S1 and S2 normal with no audible murmur, irregular rhythm. No extra heart sounds ABDOMEN: No hepatosplenomegaly, active bowel sounds, no guarding or rigidity. SPINE: No scoliosis or deformity SKIN: No rashes CENTRAL NERVOUS SYSTEM: No focal deficits, tone is normal in all 4 extremities. EXTREMITIES: There is lower extremity pitting edema, 1-2+ bilaterally. No club nicolasa, or cyanosis. Peripheral pulses are intact. - Labs CBC & Chem 7: 03/12/24 06:25 03/12/24 06:25 Labs: Abnormal Lab Results - Last 24 Hours (Table) 03/11/24 03/11/24 03/11/24 Range/Units 11:50 16:48 20:09 RBC (3.80-5.40) m/uL Hgb (11.4-16.0) gm/dL Hct (34.0-46.0) % MCHC (31.0-37.0) g/dL Sodium (137-145) mmol/L BUN (7-17) mg/dL Creatinine (0.52-1.04) mg/dL Glucose (74-99) mg/dL POC Glucose (mg/dL) 131 H 167 H 405 H (70-110) mg/dL Calcium (8.4-10.2) mg/dL AST (14-36) U/L ALT (4-34) U/L Alkaline Phosphatase (38-126) U/L Total Protein (6.3-8.2) g/dL Albumin (3.5-5.0) g/dL 03/11/24 03/11/24 03/11/24 Range/Units 21:02 21:57 23:01 RBC (3.80-5.40) m/uL Hgb (11.4-16.0) gm/dL Hct (34.0-46.0) % MCHC (31.0-37.0) g/dL Sodium (137-145) mmol/L BUN (7-17) mg/dL Creatinine (0.52-1.04) mg/dL Glucose (74-99) mg/dL POC Glucose (mg/dL) 437 H 427 H 416 H (70-110) mg/dL Calcium (8.4-10.2) mg/dL AST (14-36) U/L ALT (4-34) U/L Alkaline Phosphatase (38-126) U/L Total Protein (6.3-8.2) g/dL Albumin (3.5-5.0) g/dL 03/12/24 03/12/24 03/12/24 Range/Units 00:00 01:02 05:04 RBC (3.80-5.40) m/uL Hgb (11.4-16.0) gm/dL Hct (34.0-46.0) % MCHC (31.0-37.0) g/dL Sodium (137-145) mmol/L BUN (7-17) mg/dL Creatinine (0.52-1.04) mg/dL Glucose (74-99) mg/dL POC Glucose (mg/dL) 282 H 187 H 140 H (70-110) mg/dL Calcium (8.4-10.2) mg/dL AST (14-36) U/L ALT (4-34) U/L Alkaline Phosphatase (38-126) U/L Total Protein (6.3-8.2) g/dL Albumin (3.5-5.0) g/dL 03/12/24 03/12/24 03/12/24 Range/Units 06:21 06:25 06:25 RBC 2.85 L (3.80-5.40) m/uL Hgb 8.4 L (11.4-16.0) gm/dL Hct 28.2 L (34.0-46.0) % MCHC 29.7 L (31.0-37.0) g/dL Sodium 130 L (137-145) mmol/L BUN 46 H (7-17) mg/dL Creatinine 3.31 H (0.52-1.04) mg/dL Glucose 180 H (74-99) mg/dL POC Glucose (mg/dL) 210 H (70-110) mg/dL Calcium 7.8 L (8.4-10.2) mg/dL AST 127 H (14-36) U/L ALT 40 H (4-34) U/L Alkaline Phosphatase 249 H (38-126) U/L Total Protein 4.9 L (6.3-8.2) g/dL Albumin 2.4 L (3.5-5.0) g/dL Assessment and Plan Assessment: Acute non-ST elevation SD. Cardiac catheterization from 02/16/2024 revealed calcified coronary arteries. Severe triple-vessel disease. Status post off- pump CABG x 4 with sequential left internal mammary artery to left anterior descending coronary artery and diagonal coronary artery, reverse saphenous vein graft's to the posterior descending coronary artery and second obtuse marginal coronary artery, closure of the left atrial appendage with 35mm AtriCure clip on 02/26/2024 Acute hypoxemic respiratory failure, recovered and currently on room air, secon paul to exacerbation of systolic congestive heart failure Ischemic cardiomyopathy with an estimated left ventricular ejection fraction severely impaired at 20 to 25% as well as moderate to severe mitral valve regurgitation Severe mitral valve regurgitation Acute febrile illness, recovered Normocytic normochromic anemia, current hemoglobin 8.4, received 2 units of packed red blood cell Acute kidney injury, likely cardiorenal, current creatinine 3.31. Initiated on hemodialysis, permacath to be placed today Metabolic non-anion gap acidosis, secondary to above Chronic obstructive pulmonary disease, stable Diabetes mellitus type 1 History of hyperlipidemia History of hypertension History of CVA/TIA History of hypothyroidism History of fibromyalgia History of GERD Mildly elevated LFTs, hepatitis panel nonreactive Former tobacco smoker, 1/2 pack/day or approximately 15-year pack history Plan: The patient was seen and evaluated Chest x-ray, labs and medications reviewed Stable and on room air Working well with the incentive spirometer Received hemodialysis yesterday with 2 L removed Receiving hemodialysis today with a goal of 2 L to be removed Plan is for permacath placement today Plan is for right-sided chest tube removal today and possibly left side tomorrow Transitioned to oral Demadex We will continue to follow I have personally seen and examined the patient, performed the documentation and the assessment and plan as written. Number of minutes spent on the visit: 10.
[2024-03-12 11:20] LABS: Glucose,Whole Blood 77 mg/dL (70-110)
[2024-03-12 12:04] LABS: Glucose,Whole Blood 46 mg/dL (70-110)
[2024-03-12 12:22] LABS: Glucose,Whole Blood 84 mg/dL (70-110)
[2024-03-12 12:45] LABS: Glucose,Whole Blood 59 mg/dL (70-110)
[2024-03-12] MEDS ORDERED: LIDOCAINE 1% INJ 10MG/ML (20 ML MDV) ONE (12:56)
[2024-03-12] MEDS: SODIUM CHLORIDE 0.9% 1,000 ML IV ONE (13:04)
[2024-03-12 13:10] LABS: Glucose,Whole Blood 80 mg/dL (70-110)
[2024-03-12] MEDS: MIDAZOLAM 2 MG/2 ML VIAL IVP ONE ×2 (13:23→13:29)
[2024-03-12] MEDS: LIDOCAINE 1% INJ 10MG/ML (20 ML MDV) SQ ONE (13:29)
[2024-03-12] MEDS: fentaNYL (PF) 50 MCG/ML 2 ML AMP IVP ONE (13:29)
[2024-03-12 13:48] LABS: Glucose,Whole Blood 49 mg/dL (70-110)
[2024-03-12 13:57] LABS: Glucose,Whole Blood 96 mg/dL (70-110)
--- NOTE | 2024-03-12 14:00 | P.OP ---
Date of Procedure: 03/12/24 Description of Procedure: DATE OF PROCEDURE: 03/12/2024 PREOPERATIVE DIAGNOSIS: Need for dialysis PROCEDURE: 1. Ultrasound-guided right internal jugular vein access. 2. Placement of a 19 cm tunneled dialysis catheter with fluoroscopic assistance. 3. Moderate conscious sedation times 25 minutes, personal monitoring certified RN administration with hemodynamic monitoring PROCEDURE: The patient was brought to the [place] placed in supine position. The bilateral necks were prepped and draped in usual sterile fashion. A preprocedure timeout was performed, all parties were in agreement. Using ultrasound the right internal jugular was identified. The site overlying the vein was anesthetized with 1% lidocaine plain and an access needle was used to gain access to the internal jugular vein with return of dark venous, nonpulsatile blood. Seldinger technique was used and a micro-access sheath was placed. Attention was then turned towards the tunnel. The chest wall was anesthetized with 1% lidocaine plain. A small meme and the skin was made and the previously flushed catheter was tunneled through the anticipated location. Using Seldinger technique and fluoroscopic assistance, the 35 Glidewire was placed and the tract was serially dilated. The final tear-away sheath was left in place. The inner cannula and wire were removed. The catheter was placed in the tear-away sheath was removed in standard fashion. The catheter showed good positioning was final resting place in the cavoatrial junction. The catheter aspirated and flushed freely. The incision at the neck was reapproximated with interrupted sutures of 4-0 Vicryl. The catheter was sutured in place with 3-0 nylon. Dressings were placed. The patient was allowed to awaken from anesthesia and transferred to recovery in stable condition having tolerated the procedure well. A post procedure chest x-ray is pending
[2024-03-12 14:31] VITALS: BMI 28.3
--- NOTE | 2024-03-12 15:19 | XR ---
EXAMINATION TYPE: XR chest 1V confirm line [facility] DATE OF EXAM: 03/12/2024 2:53 PM CLINICAL INDICATION:Female, 58 years old with history of Hemodialysis catheter placement.; COMPARISON: Chest radiographs from 03/12/2024 TECHNIQUE: XR chest 1V confirm line [facility] Frontal view of the chest. FINDINGS: Lungs/Pleura: There is no evidence of pleural effusion, focal consolidation, or pneumothorax. Pulmonary vascularity: Unremarkable. Heart/mediastinum: Cardiomediastinal silhouette is unremarkable. A loop recorder projects over the le ft thorax over the heart. Musculoskeletal: No acute osseous pathology. Midline sternotomy wires are noted. Other findings: None Lines/Tubes: Bilateral thoracotomy tubes are present without evidence of pneumothorax. Right internal jugular central venous catheter with distal tip at the cavoatrial junction. Right-sided PICC line with distal tip at the cavoatrial junction. IMPRESSION: 1. Right central venous catheter with tip in appropriate position. 2. Bilateral thoracotomy tubes without evidence of pneumothorax.
--- NOTE | 2024-03-12 15:36 | IR ---
EXAMINATION TYPE: IR cvc insert central tunneled Intraoperative/procedural fluoroscopic services were provided. CLINICAL INDICATION:Female, 58 years old with history of hemodialysis catheter insertion. 0.9min fluo ro, [id number]; , [facility] Total fluoroscopy time is 1.0 min. DAP: 91.79 uGym2 Please see the operative/procedural note for further details.
[2024-03-12 16:04] LABS: Glucose,Whole Blood 106 mg/dL (70-110)
[2024-03-12] MEDS: TORSEMIDE 20 MG TAB PO ONE (16:05)
--- NOTE | 2024-03-12 16:51 | P.CONS ---
History of Present Illness - Reason for Consult Consult date: 03/12/24 Rehab Needs - Chief Complaint Weakness - History of Present Illness PMR Consult Ms. Camilo is a 58 yo /, right handed woman who's mother lives with her in a double wide with ramp entrance. Home is handicapped accessible. She was independent with mobility and ADLs [employer]. She is on disability as "body breaking down" with chronic back and neck pain. She has 3 sons and a daughter in the area who may be able to help some. She was brought to the emergency department with complaints of shortness of breath and lower extremity swelling. She has a past medical history of kidney disease, COPD, diabetes mellitus, TIA, GERD, hyperlipidemia, hypertension, liver disease and thyroid disorder. Patient states that she was diagnosed with hepatitis as a child. Patient was NSTEMI and was started on a heparin drip. She was seen by cardiology and they recommended discontinuing heparin drip. Patient was noted to be anemic on admission. Gastroenterology was consulted for anemia. She denies any previous history of anemia. 03/10/2024, remains in the ICU, remains on room air, patient is now postoperative day #13 off pump CABG x 4 with sequential left internal mammary artery to left anterior descending coronary artery and diagonal coronary artery, reverse saphenous vein graft's to the posterior descending coronary artery and second obtuse marginal coronary artery, closure of the left atrial appendage with 35mm AtriCure clip patient remains in the ICU, doing fairly well, however continues to have bilateral pleural chest tubes in place, and significant amount of drainage noted in the last 24 hours and both tubes. 500 mL of drainage from the right-sided chest tube, and another 500 from the left-sided chest tube over the last 24 hours patient is not scheduled to undergo hemodialysis today. But she did have dialysis yesterday. Had 3 L removed yesterday. Clinically she is doing well, but considering her LV dysfunction her overall prognosis remains extremely poor and guarded. At this point no plans to remove any of the chest tubes considering her significant amount of drainage in the last 24 hours chest x-ray is reassuring there is evidence of tiny small biapical pneumothoraces. No air leak noted.WBC is 5.2 hemoglobin 8.7 electrolytes are normal BUN is 52 creatinine 3.54 March 11, 2024 in follow-up in the intensive care unit. Postoperative day #14 following coronary bypass surgery. She is currently awake and alert in no acute distress. Sitting up in bed. She is maintaining O2 saturations in the 90s on room air. No IV fluids. She is to receive hemodialysis today with a goal of 2 L to be removed. Her bilateral chest tubes remain in place. The left chest tube drained another 200 mL of serous drainage while the right chest tube drained another 230 mL overnight. Chest x-ray reveals postsurgical changes with mild pulmonary edema. No significant change. Small left pneumothorax. She is status post 2 units of packed red blood cells this admission. Current hemoglobin 8.3. White count 5.3. Platelets 253. Sodium 130. Potassium 4.5. Bicarb 26. BUN 59. Creatinine 4.0. Glucose 189. She remains on DuoNeb ventilations, Symbicort. Working well with the incentive spirometer. Heparin for DVT prophylaxis. Remains on IV Bumex. Currently in a -1.2 L balance March 12, 2024 in follow-up in the intensive care unit. Postoperative day #15. She is currently resting in bed. Awake and alert in no acute distress. She is maintaining good O2 saturations in the 90s on room air. The plan is for the right-sided chest tube to be removed today and possibly the left-sided 1 to be removed tomorrow. She is going for permacath today. She received hemodialysis yesterday with 2 L removed. Receiving hemodialysis again today with a goal of 2 L as well. Chest x-ray reveals surgical changes with mild pulmonary edema. Small left-sided pneumothorax. She has received 2 units of packed red blood cells this admission. Current hemoglobin 8.4. Platelets 219. White count 5.9. Sodium 130. Potassium 4.6. Bicarb 26. BUN 46. Creatinine 3.31. Glucose 180. She remains on bronchodilators. Heparin for DVT prophylaxis. Transitioned to oral Demadex, currently in a -1.6 L balance. PMR Consulted for rehab needs 03/12/24. She is resting in bed, is very tired, dizzy, SOB, has CP, nausea/emesis. Has h/o chronic neck, back and bilateral wrist pain. Legs are both numb. She has been having urinary retention. Her last BM was yesterday. With therapies, has been limited by dialysis and fatigue, but last week was Dependent for ADLS, toileting; no recent notes. Review of Systems + per above, o/w all systems reviewed were negative. Past Medical History Past Medical History: Coronary Artery Disease (CAD), Chest Pain / Angina, Heart Failure, COPD, CVA/TIA, Diabetes Mellitus, Fibromyalgia, GERD/Reflux, Hyperlipidemia, Hypertension, Liver Disease, Myocardial Infarction (NH), Osteoarthritis (OA), Renal Disease, Thyroid Disorder Additional Past Medical History / Comment(s): NEUROPATHY BILATERAL FEET, DDD NECK AND LOWER BACK, hiatal hernia, states no need for BP med anymore(gets orthostatic hypotension-has "medtronic heart loop monitor"), hx hepatitis as a kid, hx fractrured left wrist, hx stroke 03/03/22-problems with balance since. History of Any Multi-Drug Resistant Organisms: MRSA Year Discovered:: 2018 MDRO Source:: stomach Past Surgical History: Adenoidectomy, Back Surgery, Bladder Surgery, Hysterectomy, Orthopedic Surgery, Tonsillectomy, Tubal Ligation Additional Past Surgical History / Comment(s): Debridement right foot, PICC line placed and later removed, bladder suspension, exploratory laparotomy, right great toe amputation, pins right in foot, cataracts removed, left wrist ORIF, loop heart monitor placed 02/2022. Past Anesthesia/Blood Transfusion Reactions: No Reported Reaction, Motion Sickness Additional Past Anesthesia/Blood Transfusion Reaction / Comm: . Type of Cardiac Device: Loop Past Psychological History: Anxiety, Depression Smoking Status: Former smoker Past Alcohol Use History: Occasional Past Drug Use History: Marijuana, Methamphetamine Additional Drug Use History / Comment(s): States that she last used methamphetamine 2 months ago - Past Family History Sister(s) Family Medical History: Coronary Artery Disease (CAD) Mother Family Medical History: Pulmonary Embolus Additional Family Medical History / Comment(s): . Father Additional Family Medical History / Comment(s): at 26yrs old--accident at work Medications and Allergies Home Medications Medication Instructions Recorded Confirmed Type Levothyroxine Sodium [Synthroid] 175 mcg PO DAILY 02/02/22 02/06/24 History Acetaminophen Tab [Tylenol] 650 mg PO BID PRN 02/06/24 02/06/24 History Albuterol Nebulized [Ventolin 2.5 mg INHALATION RT-TID PRN 02/06/24 02/06/24 History Nebulized] Atorvastatin [Lipitor] 20 mg PO HS 02/06/24 02/06/24 History Ciclesonide [Alvesco] 1 puff INHALATION RT-BID 02/06/24 02/06/24 History Insulin Glargine [Lantus Vial] 8 unit SQ BID 02/06/24 02/06/24 History Insulin Regular [humuLIN R] 2 units SQ TID PRN 02/06/24 02/06/24 History Insulin Regular [humuLIN R] See Protocol SQ QID 02/06/24 02/06/24 History Ondansetron Hcl 2mg/Ml Injection 4 mg INJ ONCE PRN 02/06/24 02/06/24 History Ondansetron [Zofran] 4 mg PO BID PRN 02/06/24 02/06/24 History traZODone HCL [Desyrel] 50 mg PO HS 02/09/24 02/09/24 History Allergies Allergy/AdvReac Type Severity Reaction Status Date / Time Sulfa (Sulfonamide Allergy see comment Verified 02/06/24 13:59 Antibiotics) Physical Exam Vitals: Vital Signs Temp Pulse Pulse Resp BP BP Pulse Ox 03/12/24 15:00 71 13 105/57 93 L 03/12/24 12:00 98.6 F 63 18 103/48 92 L 03/12/24 11:58 98.2 F 64 13 100/53 03/12/24 11:00 61 14 91/54 93 L 03/12/24 10:00 61 12 110/44 93 L 03/12/24 09:00 61 13 105/49 93 L 03/12/24 08:00 97.8 F 60 13 100/52 93 L 03/12/24 07:00 63 28 H 113/57 93 L 03/12/24 06:00 66 17 98/48 94 L 03/12/24 05:00 64 15 101/51 92 L 03/12/24 04:00 98.8 F 64 17 92/46 91 L 03/12/24 03:00 64 18 98/48 93 L 03/12/24 02:00 64 17 97/46 92 L 03/12/24 01:00 61 14 103/48 91 L 03/12/24 00:16 63 21 94 L 03/12/24 00:00 98.3 F 62 13 89/48 94 L 03/11/24 23:00 61 16 103/49 93 L 03/11/24 22:00 69 19 108/49 95 03/11/24 21:00 65 13 97/52 93 L 03/11/24 20:00 97.5 F L 62 20 97/48 93 L 03/11/24 19:00 62 15 107/52 95 03/11/24 18:00 62 15 93/51 93 L 03/11/24 17:00 60 18 84/47 95 Intake and Output 03/12/24 03/12/24 03/12/24 06:59 14:59 22:59 Intake Total 662.989 790 240 Output Total 290 2600 0 Balance 372.989 -1810 240 Intake: IV 50 Intake, IV Titration 42.989 Amount Insulin Regular 100 unit 42.989 In Sodium Chloride 0.9% 100 ml @ Titrate IV .Q0M [facility] Rx#:[id number] Oral 620 240 240 Hemodialysis 500 Output: Chest Tube Drainage 90 100 Left Pleural Chest Tube 50 40 Right Pleural Chest Tube 40 60 Urine 0 0 0 Post Void Residual 200 Hemodialysis 2500 Other: Voiding Method Toilet Toilet # Voids 0 Weight 84.4 kg 84.4 kg GENERAL EXAM: Alert, pleasant 58-year-old female, on room air, in no apparent distress. HEAD: Normocephalic and atraumatic EYES: Normal reaction of pupils, equal size. CHEST: Sternal dressing dry and intact. Heart hugger in place. Bilateral chest tubes in place to Pleur-evac. Right IJ with dressing in place LUNGS: Non-labored respirations CVS: Regular rate ABDOMEN: Soft NT/ND SKIN: No rashes NEURO: A&Ox4. speech Fluent. Follows 3 step commands. MMT 4/5 UE (shoulders not tested), 2-3/5 HF/KE, 5/5 DF Sensation light touch intact UE, decreased LE from knees on down EXTREMITIES: There is lower extremity pitting edema, 1-2+ bilaterally. No calf TTP, negative Homams Results CBC & Chem 7: 03/12/24 06:25 03/12/24 06:25 Labs: Abnormal Lab Results - Last 24 Hours (Table) 03/11/24 03/11/24 03/11/24 Range/Units 16:48 20:09 21:02 RBC (3.80-5.40) m/uL Hgb (11.4-16.0) gm/dL Hct (34.0-46.0) % MCHC (31.0-37.0) g/dL Sodium (137-145) mmol/L BUN (7-17) mg/dL Creatinine (0.52-1.04) mg/dL Glucose (74-99) mg/dL POC Glucose (mg/dL) 167 H 405 H 437 H (70-110) mg/dL Calcium (8.4-10.2) mg/dL AST (14-36) U/L ALT (4-34) U/L Alkaline Phosphatase (38-126) U/L Total Protein (6.3-8.2) g/dL Albumin (3.5-5.0) g/dL 03/11/24 03/11/24 03/12/24 Range/Units 21:57 23:01 00:00 RBC (3.80-5.40) m/uL Hgb (11.4-16.0) gm/dL Hct (34.0-46.0) % MCHC (31.0-37.0) g/dL Sodium (137-145) mmol/L BUN (7-17) mg/dL Creatinine (0.52-1.04) mg/dL Glucose (74-99) mg/dL POC Glucose (mg/dL) 427 H 416 H 282 H (70-110) mg/dL Calcium (8.4-10.2) mg/dL AST (14-36) U/L ALT (4-34) U/L Alkaline Phosphatase (38-126) U/L Total Protein (6.3-8.2) g/dL Albumin (3.5-5.0) g/dL 03/12/24 03/12/24 03/12/24 Range/Units 01:02 05:04 06:21 RBC (3.80-5.40) m/uL Hgb (11.4-16.0) gm/dL Hct (34.0-46.0) % MCHC (31.0-37.0) g/dL Sodium (137-145) mmol/L BUN (7-17) mg/dL Creatinine (0.52-1.04) mg/dL Glucose (74-99) mg/dL POC Glucose (mg/dL) 187 H 140 H 210 H (70-110) mg/dL Calcium (8.4-10.2) mg/dL AST (14-36) U/L ALT (4-34) U/L Alkaline Phosphatase (38-126) U/L Total Protein (6.3-8.2) g/dL Albumin (3.5-5.0) g/dL 03/12/24 03/12/24 03/12/24 Range/Units 06:25 06:25 12:02 RBC 2.85 L (3.80-5.40) m/uL Hgb 8.4 L (11.4-16.0) gm/dL Hct 28.2 L (34.0-46.0) % MCHC 29.7 L (31.0-37.0) g/dL Sodium 130 L (137-145) mmol/L BUN 46 H (7-17) mg/dL Creatinine 3.31 H (0.52-1.04) mg/dL Glucose 180 H (74-99) mg/dL POC Glucose (mg/dL) 46 L* (70-110) mg/dL Calcium 7.8 L (8.4-10.2) mg/dL AST 127 H (14-36) U/L ALT 40 H (4-34) U/L Alkaline Phosphatase 249 H (38-126) U/L Total Protein 4.9 L (6.3-8.2) g/dL Albumin 2.4 L (3.5-5.0) g/dL 03/12/24 03/12/24 Range/Units 12:44 13:42 RBC (3.80-5.40) m/uL Hgb (11.4-16.0) gm/dL Hct (34.0-46.0) % MCHC (31.0-37.0) g/dL Sodium (137-145) mmol/L BUN (7-17) mg/dL Creatinine (0.52-1.04) mg/dL Glucose (74-99) mg/dL POC Glucose (mg/dL) 59 L 49 L* (70-110) mg/dL Calcium (8.4-10.2) mg/dL AST (14-36) U/L ALT (4-34) U/L Alkaline Phosphatase (38-126) U/L Total Protein (6.3-8.2) g/dL Albumin (3.5-5.0) g/dL Assessment and Plan Assessment: # Decline in function/gait impairment # Critical illness myopathy - continue therapies; have not always been able to work with her because of dialysis and her faftige. # Acute non-ST elevation NH. Cardiac catheterization from 02/16/2024 revealed calcified coronary arteries. Severe triple-vessel disease. Status post off- pump CABG x 4 with sequential left internal mammary artery to left anterior descending coronary artery and diagonal coronary artery, reverse saphenous vein graft's to the posterior descending coronary artery and second obtuse marginal coronary artery, closure of the left atrial appendage with 35mm AtriCure clip on 02/26/2024 # Acute hypoxemic respiratory failure secondary to exacerbation of systolic congestive heart failure # Ischemic cardiomyopathy with an estimated left ventricular ejection fraction severely impaired at 20 to 25% as well as moderate to severe mitral valve regurgitation # Severe mitral valve regurgitation # Acute febrile illness, recovered # Normocytic normochromic anemia, current hemoglobin 8.4, received 2 units of packed red blood cell #Acute kidney injury, likely cardiorenal, current creatinine 3.31. - Initiated on hemodialysis, permacath placed today # Metabolic non-anion gap acidosis, secondary to above # Chronic obstructive pulmonary disease, stable # Diabetes mellitus type 1 # History of hyperlipidemia # History of hypertension # History of CVA/TIA # History of hypothyroidism # History of fibromyalgia # History of GERD # Mildly elevated LFTs, hepatitis panel nonreactive # Former tobacco smoker, 1/2 pack/day or approximately 15-year pack history Recommendations: - per your medical management - continue therapies as able Will continue to follow and reassess as improves medically. At this time, too low functioning for IPR, but as improves medically, may be appropriate.
[2024-03-12 16:56] LABS: Glucose,Whole Blood 126 mg/dL (70-110)
[2024-03-12 20:32] LABS: Glucose,Whole Blood 222 mg/dL (70-110)
[2024-03-12] MEDS: ALBUMIN HUMAN 25% 50 ML in EMPTY BAG 1 BAG IVPB SCH (22:33)
[2024-03-12 23:49] LABS: Glucose,Whole Blood 118 mg/dL (70-110)
[2024-03-13 06:13] LABS: HCT 28.7 % (34.0-46.0); HGB 8.7 gm/dL (11.4-16.0); Hypochromasia Marked; MCH 30.1 pg (25.0-35.0); MCHC 30.2 g/dL (31.0-37.0); MCV 99.6 fL (80.0-100.0); Macrocytosis Slight; Mean Platelet Volume 8.1; Platelet Count 181 k/uL (150-450); RBC 2.88 m/uL (3.80-5.40); RDW 14.6 % (11.5-15.5); WBC 5.8 k/uL (3.8-10.6)
[2024-03-13 06:23] LABS: Glucose,Whole Blood 314 mg/dL (70-110)
[2024-03-13 06:23] LABS: African American GFR (CKD) 18 (>60 ml/min/1.73 sqM); Anion Gap 7 mmol/L; Blood Urea Nitrogen 37 mg/dL (7-17); Carbon Dioxide 23 mmol/L (22-30); Chloride 98 mmol/L (98-107); Glucose 262 mg/dL (74-99); Non-African American GFR(CKD) 16 (>60 ml/min/1.73 sqM); Phosphorus 4.5 mg/dL (2.5-4.5); Potassium 4.9 mmol/L (3.5-5.1); Sodium 128 mmol/L (137-145)
--- NOTE | 2024-03-13 07:32 | P.PN ---
Subjective This is a pleasant 58 years old female with past medical history of multiple medical problems as below She has been incarcerated for 52 days, there is officer at bedside. Patient presents because of shortness of breath and exertional dyspnea has for the last 2 days, she states she hears herself wheezing when she lies down. Currently she is breathing quietly. She is complaining for mild chest pain on the left side, nonradiating nonspecific, feels much better now and very mild. She has occasional cough but no phlegm. Also she is complaining from upset stomach but no diarrhea or vomiting She complains from decreased urination but no dysuria or urgency. She has mild headache feels generally weak but no dizziness or blurry vision. She used to smoke half pack per day before she got incarcerated No alcohol or illicit drugs. She follow-up with her receiving associate store Dr. Donal Herrera and livestock handler Dr. Babb who examined her about 2 months ago where she has some mild ulcer In the bottom of her right total This morning patient has low-grade fever 100.2 She is also mildly tachypneic around 22 She is saturating 93% on 2 L oxygen via nasal cannula Labs reviewed showing hemoglobin of 7.7, rest of CBC is unremarkable BMP liver enzymes not elevated. INR 0.9. Lactic 0.9 proBNP is elevated 25 100 EKG showing sinus rhythm at [address]-T changes, no left bundle branch block 02/17/2024 --Patient is seen and evaluated in room at bedside; remains on Lasix drip, remains in negative fluid balance - patient underwent cardiac catheterization which revealed severe triple-vessel coronary artery disease and now she is being evaluated for possible myocardial revascularization. Patient remains on oxygen at 2 L/min and her O2 sats is 97%, her PFT showed severe obstructive lung disease, however not severe enough to not consider myocardial revascularization if the patient is cleared by other consultants including nephrology and cardiology. Patient has been a smoker over the years, she had at least a [id number] smoking history. Remind you patient had a PFT with chest x-ray still showing evidence of pulmonary edema which will definitely compromise her PFT will likely reflect more restriction than obstructive lung disease. WBC count today is 4.9 hemoglobin 7.7 electrolytes are normal BUN is 85 creatinine 3.59 02/18/2024 Patient is seen and evaluated in room at bedside; sitting up in bed; ports stable breathing - patient underwent AFRICA which revealed aortic valve tricuspid and functioning normally. Mitral valve structurally normal with mild central secondary mitral regurgitation. Pulmonary vein flow has systolic dominance. Tricuspid valve appears to be normal with mild tricuspid regurgitation. Intra-atrial septum is intact with no evidence of PFO. Left atrial appendage free of clot. LV EF 35% with global hypokinesis. -- Patient is followed by cardiothoracic surgery and also nephrology. Nephrology not recommending any indication or need for hemodialysis. Patient remains on Lasix drip per nephrology. Patient has a negative fluid balance of 1322. Repeat blood work reveals hemoglobin is 7.9. BUN 82 creatinine 3.39. Mild elevation in liver function test. -Plan for surgery once clinically optimized 02/19/2024 Patient looks more awake than admission, sitting up in bed. Longterm officers at bedside Mentation at baseline. She talks freely. Denies chest pain or dyspnea at rest On presentation patient was found acute CHF and non-STEMI, workup showing triple-vessel coronary artery disease and patient will require bypass procedure with cardiothoracic surgery team on the case once medically optimized. Patient currently with fluid overload on Lasix drip, on admission it was 5 mg/h, currently increased to 10 mg/h. She is making around 1 L of urine output by yesterday. Saldaña catheter in place. She is also on aspirin 81 mg Hemoglobin 8.5, creatinine 3.3 compared to 2.7 on admission with baseline 0.9- 1.2. Liver enzymes mildly elevated since admission. 02/20/2024 Patient came from [facility] for an NSTEMI. Workup showing severe triple-vessel coronary artery disease currently being evaluated by cardiothoracic surgery team for possible cardiac bypass procedure. However she needs optimization and she is currently kept on IV Lasix 10 mg, creatinine went up 3.3 today. 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 Set Up Operator recommended to continue with Lasix drip still tomorrow Patient diabetic, she is on Levemir 8 units twice daily, she is developing episodes of hypoglycemia we will going to lower the dose to 6 units twice daily She is also on aspirin 325 mg 02/21/2024 Patient continues to improve today, she is more energetic, less dyspneic Lasix drip switched to IV Lasix 60 mg twice daily Cardiothoracic surgery team with plan for valve replacement surgery on this coming Sunday 02/25 Sugars better controlled with no hyperglycemia on Levemir 6 units twice daily 02/22/2024 Patient breathing is stable, denies chest pain No new complaint Will go check breathing tomorrow Plan for cardiac surgery on Monday02/23/2024 Patient awake alert She feels more weak today Creatinine is up Plan for cardiac surgery early next week 02/24/2024 Patient feels weak No chest pain or dyspnea Patient anticipates surgery on Monday ammunition officer at bedside 02/25/2024 Patient awake alert looks comfortable Generally weak Creatinine stable around 3.2 Plan for bypass cardiac surgery tomorrow, patient is agreeable to the current plan I am resuming the care of the patient on 03/12/2024 Patient awake and alert but very weak and lethargic She has average appetite. Denies chest pain dyspnea or abdominal pain She is getting hemodialysis with plan for permanent dialysis catheter placement today She remains on insulin drip, currently she is n.p.o. for the procedure then switched to levemir insulin 20 units daily and novolog 3 units with meal and iSS Objective - Vital Signs Vital signs: Vital Signs Temp 98.0 F 03/12/24 16:00 Pulse 68 03/12/24 19:03 Resp 9 L 03/12/24 19:03 BP 105/57 03/12/24 19:03 Pulse Ox 91 L 03/12/24 19:03 FiO2 40 02/26/24 16:39 Intake & Output 03/12/24 03/12/24 03/13/24 06:59 18:59 06:59 Intake Total 790.749 0528 Output Total 490 2600 Balance 376.995 -1080 Weight 84.4 kg 84.4 kg Intake: IV 50 Intake, IV Titration 46.995 Amount Insulin Regular 100 unit 46.995 In Sodium Chloride 0.9% 100 ml @ Titrate IV .Q0M [facility] Rx#:[id number] Oral 820 970 Hemodialysis 500 Output: Chest Tube Drainage 140 100 Left Pleural Chest Tube 80 40 Right Pleural Chest Tube 60 60 Urine 150 0 Post Void Residual 200 Hemodialysis 2500 Other: Voiding Method Toilet Toilet # Voids 0 ABP, PAP, CO, CI - Last Documented Arterial Blood Pressure 139/47 Pulmonary Artery Pressure 36/20 Cardiac Output 4.2 Cardiac Index 2.3 - Exam -GENERAL: The patient is alert and oriented x3, patient lethargic, not in any acute distress. Well developed, well nourished. Generally weak and lethargic HEENT: Pupils are round and equally reacting to light. EOMI. No scleral icterus. No conjunctival pallor. Normocephalic, atraumatic. No pharyngeal erythema. No thyromegaly. CARDIOVASCULAR: S1 and S2 present. No murmurs, rubs, or gallops. -PULMONARY: Chest is clear to auscultation, no wheezing , no crackles. Tachypnea -ABDOMEN: Soft, nontender, nondistended, normoactive bowel sounds. No palpable organomegaly. Saldaña catheter in place MUSCULOSKELETAL: No joint swelling or deformity. -EXTREMITIES: No cyanosis, clubbing, 1+ bilateral pitting leg edema. NEUROLOGICAL: Gross neurological examination did not reveal any focal deficits. SKIN: No rashes. no petechiae. - Labs CBC & Chem 7: 03/13/24 05:53 03/13/24 05:53 Labs: Abnormal Lab Results - Last 24 Hours (Table) 03/11/24 03/11/24 03/11/24 Range/Units 21:02 21:57 23:01 RBC (3.80-5.40) m/uL Hgb (11.4-16.0) gm/dL Hct (34.0-46.0) % MCHC (31.0-37.0) g/dL Sodium (137-145) mmol/L BUN (7-17) mg/dL Creatinine (0.52-1.04) mg/dL Glucose (74-99) mg/dL POC Glucose (mg/dL) 437 H 427 H 416 H (70-110) mg/dL Calcium (8.4-10.2) mg/dL AST (14-36) U/L ALT (4-34) U/L Alkaline Phosphatase (38-126) U/L Total Protein (6.3-8.2) g/dL Albumin (3.5-5.0) g/dL 03/12/24 03/12/24 03/12/24 Range/Units 00:00 01:02 05:04 RBC (3.80-5.40) m/uL Hgb (11.4-16.0) gm/dL Hct (34.0-46.0) % MCHC (31.0-37.0) g/dL Sodium (137-145) mmol/L BUN (7-17) mg/dL Creatinine (0.52-1.04) mg/dL Glucose (74-99) mg/dL POC Glucose (mg/dL) 282 H 187 H 140 H (70-110) mg/dL Calcium (8.4-10.2) mg/dL AST (14-36) U/L ALT (4-34) U/L Alkaline Phosphatase (38-126) U/L Total Protein (6.3-8.2) g/dL Albumin (3.5-5.0) g/dL 03/12/24 03/12/24 03/12/24 Range/Units 06:21 06:25 06:25 RBC 2.85 L (3.80-5.40) m/uL Hgb 8.4 L (11.4-16.0) gm/dL Hct 28.2 L (34.0-46.0) % MCHC 29.7 L (31.0-37.0) g/dL Sodium 130 L (137-145) mmol/L BUN 46 H (7-17) mg/dL Creatinine 3.31 H (0.52-1.04) mg/dL Glucose 180 H (74-99) mg/dL POC Glucose (mg/dL) 210 H (70-110) mg/dL Calcium 7.8 L (8.4-10.2) mg/dL AST 127 H (14-36) U/L ALT 40 H (4-34) U/L Alkaline Phosphatase 249 H (38-126) U/L Total Protein 4.9 L (6.3-8.2) g/dL Albumin 2.4 L (3.5-5.0) g/dL 03/12/24 03/12/24 03/12/24 Range/Units 12:02 12:44 13:42 RBC (3.80-5.40) m/uL Hgb (11.4-16.0) gm/dL Hct (34.0-46.0) % MCHC (31.0-37.0) g/dL Sodium (137-145) mmol/L BUN (7-17) mg/dL Creatinine (0.52-1.04) mg/dL Glucose (74-99) mg/dL POC Glucose (mg/dL) 46 L* 59 L 49 L* (70-110) mg/dL Calcium (8.4-10.2) mg/dL AST (14-36) U/L ALT (4-34) U/L Alkaline Phosphatase (38-126) U/L Total Protein (6.3-8.2) g/dL Albumin (3.5-5.0) g/dL 03/12/24 Range/Units 16:55 RBC (3.80-5.40) m/uL Hgb (11.4-16.0) gm/dL Hct (34.0-46.0) % MCHC (31.0-37.0) g/dL Sodium (137-145) mmol/L BUN (7-17) mg/dL Creatinine (0.52-1.04) mg/dL Glucose (74-99) mg/dL POC Glucose (mg/dL) 126 H (70-110) mg/dL Calcium (8.4-10.2) mg/dL AST (14-36) U/L ALT (4-34) U/L Alkaline Phosphatase (38-126) U/L Total Protein (6.3-8.2) g/dL Albumin (3.5-5.0) g/dL Assessment and Plan Assessment: Acute systolic CHF exacerbation, ejection fraction: 20 to 25% non-STEMI, ekg New left bundle branch block, secondary to triple-vessel coronary artery disease requiring CABG Mild hypoxic respiratory failure, improved Acute kidney injury on chronic kidney disease, requiring hemodialysis, new onset Acute on chronic anemia of chronic disease Acute urinary tract infection, urine culture showing skin or genital kwesi. Resolved Diabetes mellitus with hypoglycemia Low-grade fever Nicotine dependence Chronic ulcers of the right big toe Chronic kidney disease stage II with acute kidney injury Plan: Continue with hemodialysis. Patient is getting dialysis catheter on 03/12 Cardiothoracic surgery team on the case with plan for bypass procedure for coronary artery disease Continue with toresmide Nephrology team consult Patient currently on aspirin and plvix Cardiology consult on the case c/w Levemir dose 20 units once daily. Continue with NovoLog insulin 3 units with meal Labs and medication were reviewed.. Continue same treatment. Continue with symptomatic treatment. Resume home medication. Monitor labs and vitals. DVT and GI prophylaxis. Further recommendations as per clinical course of the patient DVT prophylaxis: heparin GI Prophylaxis: Pepcid Prognosis is guarded given her multiple disease of the heart kidneys
--- NOTE | 2024-03-13 08:14 | XR ---
EXAMINATION TYPE: XR chest 1V portable DATE OF EXAM: 03/13/2024 5:18 AM CLINICAL INDICATION:Female, 58 years old with history of Postoperative CABG; [facility] COMPARISON: Chest radiograph from one day prior. TECHNIQUE: XR chest 1V portable Frontal view of the chest. FINDINGS: Lungs/Pleura: Trace right and small left pneumothorax. There is no evidence of pleural effusion, foca l consolidation. Pulmonary vascularity: Unremarkable. Heart/mediastinum: Cardiomediastinal silhouette is unremarkable. A loop recorder projects over the le ft thorax over the heart. Musculoskeletal: No acute osseous pathology. Midline sternotomy wires are noted. Other findings: None Lines/Tubes: Left thoracotomy tube is present with small pneumothorax. Right thoracotomy tube removed with trace r ight pneumothorax. Right internal jugular central venous catheter with distal tip at the cavoatrial junction. Right-sided PICC line with distal tip at the cavoatrial junction. IMPRESSION: 1. Right central venous catheter with tip in appropriate position. 2. Left thoracotomy tube with small pneumothorax. 3. Removal right thoracotomy tube with trace pneumothorax.
--- NOTE | 2024-03-13 08:28 | P.PN ---
Subjective Progress Note Date: 03/13/24 Principal diagnosis: Triple-vessel coronary artery disease, non-STEMI this admission, acute heart failure with reduced ejection fraction, new onset ischemic cardiomyopathy, moderate to severe mitral regurgitation, acute on chronic kidney disease, acute anemia. History of hypertension, hyperlipidemia, hypothyroid, diabetes mellitus, CVA, hepatitis as a child, CKD stage IV, previous tobacco dependence with recent cessation, severe COPD, previous methamphetamine use with recent cessation, family history of coronary artery disease POD #16 Off-pump CABG x 4 with sequential left internal mammary artery to left anterior descending coronary artery and diagonal coronary artery, reverse saphenous vein graft to the posterior descending coronary artery and second obtuse marginal coronary artery, closure of the left atrial appendage with 35mm AtriCure clip, placement of percutaneous right femoral intra-aortic balloon pump, transesophageal echocardiogram performed by anesthesia. Postoperative acute blood loss anemia, expected secondary to hemodilution and preoperative anemia Postoperative paroxysmal atrial fibrillation, a known common occurrence after cardiac surgery, not a complication Acute kidney injury secondary to ATN secondary to cardiorenal syndrome, not a complication as it was expected due to preoperative acute on chronic kidney disease POD #6 ultrasound-guided right common femoral vein access and placement of central venous catheter for dialysi POD #1 ultrasound-guided right internal jugular vein access, placement of 19 cm tunneled dialysis catheter with fluoroscopic assistance under moderate conscious sedation completed by Dr. Barker The patient was seen and examined this morning sitting up in recliner in the intensive care unit in no acute distress. States pain is controlled on current medication regimen, denies shortness of breath. Currently in sinus rhythm, hemodynamically stable. Currently on room air with oxygen saturation in the mid 90s. Able to achieve 1500 mL on her incentive spirometry. She has been ambulatory with assistance and use of a walker for balance. Chest x-ray, labs reviewed. Received dialysis the last 2 days. Patient's only complaint is frustration with remaining in the hospital. Remains with left pleural chest tube, right-sided PICC line, and right internal jugular permacath. No other new concerns. Objective - Vital Signs Vital signs: Vital Signs Temp 98.6 F 03/13/24 04:00 Pulse 61 03/13/24 07:00 Resp 16 03/13/24 07:00 BP 104/50 03/13/24 07:00 Pulse Ox 95 03/13/24 07:38 FiO2 40 02/26/24 16:39 Intake & Output 03/12/24 03/13/24 03/13/24 18:59 06:59 18:59 Intake Total 1520 100 Output Total 2600 678 0 Balance -1080 -578 0 Weight 84.4 kg 82.5 kg Intake: IV 50 Intake, IV Titration 100 Amount Albumin Human 25% 50 ml 100 In Empty Bag 1 bag @ 50 mls/hr IVPB Q1H [id number] Rx#: [id number] Oral 970 Hemodialysis 500 Output: Chest Tube Drainage 100 250 Left Pleural Chest Tube 40 250 Right Pleural Chest Tube 60 Urine 0 250 0 Post Void Residual 178 Hemodialysis 2500 Other: Voiding Method Toilet Bedside Commode # Voids 1 ABP, PAP, CO, CI - Last Documented Arterial Blood Pressure 139/47 Pulmonary Artery Pressure 36/20 Cardiac Output 4.2 Cardiac Index 2.3 - Exam CONSTITUTIONAL: Appears comfortable, cooperative, no acute distress RESPIRATORY: Lungs sounds diminished bilaterally. Respirations even, nonlabored. Currently on room air with oxygen saturation 97%. Able to achieve 1500 mL on incentive spirometry. Weak cough. CARDIOVASCULAR: S1, S2 present. Regular rate and rhythm, sinus rhythm on telemetry. Sternum stable. Palpable peripheral pulses bilaterally. Bilateral lower extremity edema present. No calf pain or tenderness noted. Heart hugger in place with patient demonstrating appropriate use. Antiembolism stockings, SCDs present. GASTROINTESTINAL: Abdomen soft, nontender, nondistended. Active bowel sounds present 4 quadrants. Tolerating diet. Positive bowel movement 6/2 GENITOURINARY: Continues to void although not always measured. Receiving hemodialysis per nephrology INTEGUMENTARY: Skin is warm and dry with evidence of good perfusion. Anterior chest incision well approximated and covered with dry intact dressing. Left lower extremity EVH site well approximated without redness or drainage. NEUROLOGIC: Cranial nerves II through XII intact MUSKULOSKELETAL: Able to move all extremities, strength equal bilaterally PSYCHIATRIC: Alert and oriented to person place and time, appropriate affect, intact judgment and insight INVASIVE LINES AND TUBES: Left pleural chest tube present to waterseal, 120 mL serous drainage overnight, 200 mL in the last 24 hours. Right upper arm PICC present. Right internal jugular permacath present - Allied health notes Allied health notes reviewed: nursing - Labs CBC & Chem 7: 03/13/24 05:53 03/13/24 05:53 Labs: Abnormal Lab Results - Last 24 Hours (Table) 03/12/24 03/12/24 03/12/24 Range/Units 12:02 12:44 13:42 RBC (3.80-5.40) m/uL Hgb (11.4-16.0) gm/dL Hct (34.0-46.0) % MCHC (31.0-37.0) g/dL Sodium (137-145) mmol/L BUN (7-17) mg/dL Creatinine (0.52-1.04) mg/dL Glucose (74-99) mg/dL POC Glucose (mg/dL) 46 L* 59 L 49 L* (70-110) mg/dL Calcium (8.4-10.2) mg/dL 03/12/24 03/12/24 03/12/24 Range/Units 16:55 20:30 23:46 RBC (3.80-5.40) m/uL Hgb (11.4-16.0) gm/dL Hct (34.0-46.0) % MCHC (31.0-37.0) g/dL Sodium (137-145) mmol/L BUN (7-17) mg/dL Creatinine (0.52-1.04) mg/dL Glucose (74-99) mg/dL POC Glucose (mg/dL) 126 H 222 H 118 H (70-110) mg/dL Calcium (8.4-10.2) mg/dL 03/13/24 03/13/24 03/13/24 Range/Units 05:53 05:53 06:22 RBC 2.88 L (3.80-5.40) m/uL Hgb 8.7 L (11.4-16.0) gm/dL Hct 28.7 L (34.0-46.0) % MCHC 30.2 L (31.0-37.0) g/dL Sodium 128 L (137-145) mmol/L BUN 37 H (7-17) mg/dL Creatinine 3.07 H (0.52-1.04) mg/dL Glucose 262 H (74-99) mg/dL POC Glucose (mg/dL) 314 H (70-110) mg/dL Calcium 8.0 L (8.4-10.2) mg/dL - Imaging and Cardiology Chest x-ray: image reviewed Assessment and Plan Assessment: Triple-vessel coronary artery disease, non-STEMI this admission, status post four-vessel off-pump CABG Acute heart failure with reduced ejection fraction, 20-25%, 35% on AFRICA New onset ischemic cardiomyopathy Moderate to severe mitral regurgitation on transthoracic echocardiogram, mild mitral regurgitation on AFRICA Acute on chronic kidney disease secondary to ATN secondary to cardiorenal syndrome, status post right femoral vein temporary dialysis catheter placement, status post right internal jugular permacath, receiving dialysis per nephrology Acute anemia Hypertension Hyperlipidemia, treated, cholesterol 150, LDL 72.8 Hypothyroid, TSH 1.73 Diabetes mellitus, hemoglobin A1c 7.1% CVA Hepatitis as a child CKD Previous tobacco dependence with recent cessation Severe COPD, preoperative FEV1 27% of predicted Previous methamphetamine use with recent cessation Family history of coronary artery disease with sister having multiple stents Postoperative acute blood loss anemia, expected Postoperative paroxysmal atrial fibrillation, status post ligation of the left atrial appendage, currently sinus Postoperative urinary retention requiring re-initiation of barker, expected given pre-op retention Medical debility Plan: Continue to maximize medical therapy with aspirin, statin, Plavix, beta-alex. Will increase beta-alex as tolerated Continue hydralazine for afterload reduction with hold parameters Continue oral amiodarone for A-fib prophylaxis Encourage incentive spirometry use 10 times every hour while awake. Bronchodilators per pulmonology Increase activity, ambulate as tolerated. PT/OT/cardiac rehab consulted Will monitor daily labs and x-rays. Electrolyte replacement per protocol Hemodialysis per nephrology, last round was yesterday with removal of 2.5 L GI/DVT prophylaxis Pain control per current medication regimen. Avoid Toradol due to kidney failure Insulin management per internal medicine Will discontinue left pleural tube today, discussed with patient that she may continue to drain through her chest tubes sites, to be expected Continue to record strict accurate intake and output Daily weights Will place transfer orders for 3 S. cardiac stepdown unit, may transfer when bed available Discharge planning in progress, anticipate discharge to home with home care versus IPR in the next 24-48 hours More recommendations to follow
--- NOTE | 2024-03-13 08:42 | P.PN ---
Subjective This is a pleasant 58 years old female with past medical history of multiple medical problems as below She has been incarcerated for 52 days, there is officer at bedside. Patient presents because of shortness of breath and exertional dyspnea has for the last 2 days, she states she hears herself wheezing when she lies down. Currently she is breathing quietly. She is complaining for mild chest pain on the left side, nonradiating nonspecific, feels much better now and very mild. She has occasional cough but no phlegm. Also she is complaining from upset stomach but no diarrhea or vomiting She complains from decreased urination but no dysuria or urgency. She has mild headache feels generally weak but no dizziness or blurry vision. She used to smoke half pack per day before she got incarcerated No alcohol or illicit drugs. She follow-up with her transplant registered nurse Dr. Donal Herrera and doughnut batter mixer Dr. Babb who examined her about 2 months ago where she has some mild ulcer In the bottom of her right total This morning patient has low-grade fever 100.2 She is also mildly tachypneic around 22 She is saturating 93% on 2 L oxygen via nasal cannula Labs reviewed showing hemoglobin of 7.7, rest of CBC is unremarkable BMP liver enzymes not elevated. INR 0.9. Lactic 0.9 proBNP is elevated 25 100 EKG showing sinus rhythm at [address]-T changes, no left bundle branch block 02/17/2024 --Patient is seen and evaluated in room at bedside; remains on Lasix drip, remains in negative fluid balance - patient underwent cardiac catheterization which revealed severe triple-vessel coronary artery disease and now she is being evaluated for possible myocardial revascularization. Patient remains on oxygen at 2 L/min and her O2 sats is 97%, her PFT showed severe obstructive lung disease, however not severe enough to not consider myocardial revascularization if the patient is cleared by other consultants including nephrology and cardiology. Patient has been a smoker over the years, she had at least a [id number] smoking history. Remind you patient had a PFT with chest x-ray still showing evidence of pulmonary edema which will definitely compromise her PFT will likely reflect more restriction than obstructive lung disease. WBC count today is 4.9 hemoglobin 7.7 electrolytes are normal BUN is 85 creatinine 3.59 02/18/2024 Patient is seen and evaluated in room at bedside; sitting up in bed; ports stable breathing - patient underwent AFRICA which revealed aortic valve tricuspid and functioning normally. Mitral valve structurally normal with mild central secondary mitral regurgitation. Pulmonary vein flow has systolic dominance. Tricuspid valve appears to be normal with mild tricuspid regurgitation. Intra-atrial septum is intact with no evidence of PFO. Left atrial appendage free of clot. LV EF 35% with global hypokinesis. -- Patient is followed by cardiothoracic surgery and also nephrology. Nephrology not recommending any indication or need for hemodialysis. Patient remains on Lasix drip per nephrology. Patient has a negative fluid balance of 1322. Repeat blood work reveals hemoglobin is 7.9. BUN 82 creatinine 3.39. Mild elevation in liver function test. -Plan for surgery once clinically optimized 02/19/2024 Patient looks more awake than admission, sitting up in bed. Residential officers at bedside Mentation at baseline. She talks freely. Denies chest pain or dyspnea at rest On presentation patient was found acute CHF and non-STEMI, workup showing triple-vessel coronary artery disease and patient will require bypass procedure with cardiothoracic surgery team on the case once medically optimized. Patient currently with fluid overload on Lasix drip, on admission it was 5 mg/h, currently increased to 10 mg/h. She is making around 1 L of urine output by yesterday. Saldaña catheter in place. She is also on aspirin 81 mg Hemoglobin 8.5, creatinine 3.3 compared to 2.7 on admission with baseline 0.9- 1.2. Liver enzymes mildly elevated since admission. 02/20/2024 Patient came from retirement for an NSTEMI. Workup showing severe triple-vessel coronary artery disease currently being evaluated by cardiothoracic surgery team for possible cardiac bypass procedure. However she needs optimization and she is currently kept on IV Lasix 10 mg, creatinine went up 3.3 today. Emergency Technician recommended to continue with Lasix drip still tomorrow Patient diabetic, she is on Levemir 8 units twice daily, she is developing episodes of hypoglycemia we will going to lower the dose to 6 units twice daily She is also on aspirin 325 mg 02/21/2024 Patient continues to improve today, she is more energetic, less dyspneic Lasix drip switched to IV Lasix 60 mg twice daily Cardiothoracic surgery team with plan for valve replacement surgery on this coming Sunday 02/25 Sugars better controlled with no hyperglycemia on Levemir 6 units twice daily 02/22/2024 Patient breathing is stable, denies chest pain No new complaint Will go check breathing tomorrow Plan for cardiac surgery on Monday02/23/2024 Patient awake alert She feels more weak today Creatinine is up Plan for cardiac surgery early next week 02/24/2024 Patient feels weak Patient anticipates surgery on Monday [employer] officer at bedside 02/25/2024 Patient awake alert looks comfortable Generally weak Creatinine stable around 3.2 Plan for bypass cardiac surgery tomorrow, patient is agreeable to the current plan I am resuming the care of the patient on 03/12/2024 Patient awake and alert but very weak and lethargic She has average appetite. Denies chest pain dyspnea or abdominal pain She is getting hemodialysis with plan for permanent dialysis catheter placement today She remains on insulin drip, currently she is n.p.o. for the procedure then switched to levemir insulin 20 units daily and novolog 3 units with meal and iSS 03/13/2024 Patient sitting up in chair today Looks more comfortable more awake. She has good appetite and she finished most of her breakfast No specific new complaint she got her right internal jugular hemodialysis catheter in place, no hemo dialysis today Objective - Vital Signs Vital signs: Vital Signs Temp 98.6 F 03/13/24 04:00 Pulse 61 03/13/24 07:00 Resp 16 03/13/24 07:00 BP 104/50 03/13/24 07:00 Pulse Ox 95 03/13/24 07:38 FiO2 40 02/26/24 16:39 Intake & Output 03/12/24 03/13/24 03/13/24 18:59 06:59 18:59 Intake Total 1520 100 500 Output Total 2600 678 0 Balance -1080 -578 500 Weight 84.4 kg 82.5 kg Intake: IV 50 Intake, IV Titration 100 Amount Albumin Human 25% 50 ml 100 In Empty Bag 1 bag @ 50 mls/hr IVPB Q1H [facility] Rx#: [id number] Oral 970 500 Hemodialysis 500 Output: Chest Tube Drainage 100 250 Left Pleural Chest Tube 40 250 Right Pleural Chest Tube 60 Urine 0 250 0 Post Void Residual 178 Hemodialysis 2500 Other: Voiding Method Toilet Bedside Commode # Voids 1 1 # Bowel Movements 1 ABP, PAP, CO, CI - Last Documented Arterial Blood Pressure 139/47 Pulmonary Artery Pressure 36/20 Cardiac Output 4.2 Cardiac Index 2.3 - Exam -GENERAL: The patient is alert and oriented x3, patient lethargic, not in any acute distress. Well developed, well nourished. Generally weak and lethargic HEENT: Pupils are round and equally reacting to light. EOMI. No scleral icterus. No conjunctival pallor. Normocephalic, atraumatic. No pharyngeal erythema. No thyromegaly. CARDIOVASCULAR: S1 and S2 present. No murmurs, rubs, or gallops. -PULMONARY: Chest is clear to auscultation, no wheezing , no crackles. Tachypnea -ABDOMEN: Soft, nontender, nondistended, normoactive bowel sounds. No palpable organomegaly. Saldaña catheter in place MUSCULOSKELETAL: No joint swelling or deformity. -EXTREMITIES: No cyanosis, clubbing, 1+ bilateral pitting leg edema. NEUROLOGICAL: Gross neurological examination did not reveal any focal deficits. SKIN: No rashes. no petechiae. - Labs CBC & Chem 7: 03/13/24 05:53 03/13/24 05:53 Labs: Abnormal Lab Results - Last 24 Hours (Table) 03/12/24 03/12/24 03/12/24 Range/Units 12:02 12:44 13:42 RBC (3.80-5.40) m/uL Hgb (11.4-16.0) gm/dL Hct (34.0-46.0) % MCHC (31.0-37.0) g/dL Sodium (137-145) mmol/L BUN (7-17) mg/dL Creatinine (0.52-1.04) mg/dL Glucose (74-99) mg/dL POC Glucose (mg/dL) 46 L* 59 L 49 L* (70-110) mg/dL Calcium (8.4-10.2) mg/dL 03/12/24 03/12/24 03/12/24 Range/Units 16:55 20:30 23:46 RBC (3.80-5.40) m/uL Hgb (11.4-16.0) gm/dL Hct (34.0-46.0) % MCHC (31.0-37.0) g/dL Sodium (137-145) mmol/L BUN (7-17) mg/dL Creatinine (0.52-1.04) mg/dL Glucose (74-99) mg/dL POC Glucose (mg/dL) 126 H 222 H 118 H (70-110) mg/dL Calcium (8.4-10.2) mg/dL 03/13/24 03/13/24 03/13/24 Range/Units 05:53 05:53 06:22 RBC 2.88 L (3.80-5.40) m/uL Hgb 8.7 L (11.4-16.0) gm/dL Hct 28.7 L (34.0-46.0) % MCHC 30.2 L (31.0-37.0) g/dL Sodium 128 L (137-145) mmol/L BUN 37 H (7-17) mg/dL Creatinine 3.07 H (0.52-1.04) mg/dL Glucose 262 H (74-99) mg/dL POC Glucose (mg/dL) 314 H (70-110) mg/dL Calcium 8.0 L (8.4-10.2) mg/dL Assessment and Plan Assessment: Acute systolic CHF exacerbation, ejection fraction: 20 to 25% non-STEMI, ekg New left bundle branch block, secondary to triple-vessel coronary artery disease requiring CABG Mild hypoxic respiratory failure, improved Acute kidney injury on chronic kidney disease, requiring hemodialysis, new onset Acute on chronic anemia of chronic disease Acute urinary tract infection, urine culture showing skin or genital kwesi. Resolved Diabetes mellitus with hypoglycemia Low-grade fever Nicotine dependence Chronic ulcers of the right big toe Chronic kidney disease stage II with acute kidney injury Plan: Continue with hemodialysis. Patient is getting dialysis catheter on 03/12 Cardiothoracic surgery team on the case with plan for bypass procedure for coronary artery disease Continue with toresmide Nephrology team consult Patient currently on aspirin and plvix Cardiology consult on the case c/w Levemir dose 20 units once daily. Continue with NovoLog insulin 3 units with meal Labs and medication were reviewed.. Continue same treatment. Continue with symptomatic treatment. Resume home medication. Monitor labs and vitals. DVT and GI prophylaxis. Further recommendations as per clinical course of the patient DVT prophylaxis: heparin GI Prophylaxis: Pepcid Prognosis is guarded given her multiple disease of the heart kidneys
[2024-03-13 09:08] LABS: Hepatitis B Surface AB- Quant 3.5 mIU/mL
[2024-03-13] MEDS: NOREPINEPHRINE 8 MG in SODIUM CHLORIDE 0.9% 250 ML IV SCH (09:09)
[2024-03-13 10:26] LABS: Hepatitis B Core IgM Nonreactive (Nonreactive); Hepatitis B Surface Antigen Nonreactive (Nonreactive)
--- NOTE | 2024-03-13 10:42 | P.PN ---
Subjective Patient is seen in follow-up for acute kidney injury. Started on hemodialysis March 08, 2024. Has permacath. Tolerating dialysis well. Hemodynamically stable. Vital signs are stable. General: No acute distress. HEENT: Head exam is unremarkable. On nasal cannula. LUNGS: No audible rhonchi or wheezes. HEART: Rate and Rhythm are regular. ABDOMEN: Nontender. EXTREMITITES: 1+ edema. Objective - Vital Signs Vital signs: Vital Signs Temp 98.3 F 03/13/24 08:00 Pulse 66 03/13/24 10:00 Resp 14 03/13/24 10:00 BP 111/59 03/13/24 10:00 Pulse Ox 93 L 03/13/24 10:00 FiO2 40 02/26/24 16:39 Intake & Output 03/12/24 03/13/24 03/13/24 18:59 06:59 18:59 Intake Total 1520 100 500 Output Total 2600 678 0 Balance -1080 -578 500 Weight 84.4 kg 82.5 kg Intake: IV 50 Intake, IV Titration 100 Amount Albumin Human 25% 50 ml 100 In Empty Bag 1 bag @ 50 mls/hr IVPB Q1H [facility] Rx#: [id number] Oral 970 500 Hemodialysis 500 Output: Chest Tube Drainage 100 250 Left Pleural Chest Tube 40 250 Right Pleural Chest Tube 60 Urine 0 250 0 Post Void Residual 178 Hemodialysis 2500 Other: Voiding Method Toilet Bedside Commode Bedside Commode # Voids 1 1 # Bowel Movements 1 ABP, PAP, CO, CI - Last Documented Arterial Blood Pressure 139/47 Pulmonary Artery Pressure 36/20 Cardiac Output 4.2 Cardiac Index 2.3 - Labs CBC & Chem 7: 03/13/24 05:53 03/13/24 05:53 Labs: Abnormal Lab Results - Last 24 Hours (Table) 03/12/24 03/12/24 03/12/24 Range/Units 12:02 12:44 13:42 RBC (3.80-5.40) m/uL Hgb (11.4-16.0) gm/dL Hct (34.0-46.0) % MCHC (31.0-37.0) g/dL Sodium (137-145) mmol/L BUN (7-17) mg/dL Creatinine (0.52-1.04) mg/dL Glucose (74-99) mg/dL POC Glucose (mg/dL) 46 L* 59 L 49 L* (70-110) mg/dL Calcium (8.4-10.2) mg/dL 03/12/24 03/12/24 03/12/24 Range/Units 16:55 20:30 23:46 RBC (3.80-5.40) m/uL Hgb (11.4-16.0) gm/dL Hct (34.0-46.0) % MCHC (31.0-37.0) g/dL Sodium (137-145) mmol/L BUN (7-17) mg/dL Creatinine (0.52-1.04) mg/dL Glucose (74-99) mg/dL POC Glucose (mg/dL) 126 H 222 H 118 H (70-110) mg/dL Calcium (8.4-10.2) mg/dL 03/13/24 03/13/24 03/13/24 Range/Units 05:53 05:53 06:22 RBC 2.88 L (3.80-5.40) m/uL Hgb 8.7 L (11.4-16.0) gm/dL Hct 28.7 L (34.0-46.0) % MCHC 30.2 L (31.0-37.0) g/dL Sodium 128 L (137-145) mmol/L BUN 37 H (7-17) mg/dL Creatinine 3.07 H (0.52-1.04) mg/dL Glucose 262 H (74-99) mg/dL POC Glucose (mg/dL) 314 H (70-110) mg/dL Calcium 8.0 L (8.4-10.2) mg/dL Assessment and Plan Plan: Assessment: 1. Acute kidney injury secondary to ATN secondary to cardiorenal syndrome. Also from hypotension. Started on hemodialysis March 08, 2024. Has permacath. Creatinine as low as 0.98 dated March 01, 2022. No hydronephrosis noted on kidney ultrasound. Serologies negative. 2. Acute on chronic systolic CHF with ejection fraction of 20 to 25% with moderate to severe mitral regurgitation and mild pulmonary hypertension. 3. Volume overload. Improving with ultrafiltration. 4. Anemia. Iron deficiency noted - s/p IV iron completed 03/02/24. Seen by GI. Status post blood transfusion this admission. Also received IV DDAVP. On Aranesp. 5. Metabolic acidosis secondary to acute kidney injury and IV fluids. Better. 6. Hyponatremia secondary to acute kidney injury. Hypervolemic. 7. Urinary retention status post Saldaña catheter placement. Plan: Plan to hold dialysis tomorrow. Maintain torsemide. Avoid nephrotoxins. Continue to monitor renal function and urine output. Phosphorus level 4.5 dated March 13, 2024. corporate operations compliance manager to set up outpatient hemodialysis. Time with Patient: Greater than 30
--- NOTE | 2024-03-13 11:08 | P.PN ---
Subjective Progress Note Date: 03/13/24 Patient was reevaluated today on 03/10/2024, remains in the ICU, remains on room air, patient is now postoperative day #13 off pump CABG x 4 with sequential left internal mammary artery to left anterior descending coronary artery and diagonal coronary artery, reverse saphenous vein graft's to the posterior descending coronary artery and second obtuse marginal coronary artery, closure of the left atrial appendage with 35mm AtriCure clip patient remains in the ICU, doing fairly well, however continues to have bilateral pleural chest tubes in place, and significant amount of drainage noted in the last 24 hours and both tubes. 500 mL of drainage from the right-sided chest tube, and another 500 from the left-sided chest tube over the last 24 hours patient is not scheduled to undergo hemodialysis today. But she did have dialysis yesterday. Had 3 L removed yesterday. Clinically she is doing well, but considering her LV dysfunction her overall prognosis remains extremely poor and guarded. At this point no plans to remove any of the chest tubes considering her significant amount of drainage in the last 24 hours chest x-ray is reassuring there is evidence of tiny small biapical pneumothoraces. No air leak noted.WBC is 5.2 hemoglobin 8.7 electrolytes are normal BUN is 52 creatinine 3.54 The patient is seen today March 11, 2024 in follow-up in the intensive care unit. Postoperative day #14 following coronary bypass surgery. She is currently awake and alert in no acute distress. Sitting up in bed. She is maintaining O2 saturations in the 90s on room air. No IV fluids. She is to receive hemodialysis today with a goal of 2 L to be removed. Her bilateral chest tubes remain in place. The left chest tube drained another 200 mL of serous drainage while the right chest tube drained another 230 mL overnight. Chest x-ray reveals postsurgical changes with mild pulmonary edema. No significant change. Small left pneumothorax. She is status post 2 units of packed red blood cells this admission. Current hemoglobin 8.3. White count 5.3. Platelets 253. Sodium 130. Potassium 4.5. Bicarb 26. BUN 59. Creatinine 4.0. Glucose 189. She remains on DuoNeb ventilations, Symbicort. Working well with the incentive spirometer. Heparin for DVT prophylaxis. Remains on IV Bumex. Currently in a -1.2 L balance The patient is seen today March 12, 2024 in follow-up in the intensive care unit. Postoperative day #15. She is currently resting in bed. Awake and alert in no acute distress. She is maintaining good O2 saturations in the 90s on room air. The plan is for the right-sided chest tube to be removed today and possibly the left-sided 1 to be removed tomorrow. She is going for permacath today. She received hemodialysis yesterday with 2 L removed. Receiving hemodialysis again today with a goal of 2 L as well. Chest x-ray reveals surgical changes with mild pulmonary edema. Small left-sided pneumothorax. She has received 2 units of packed red blood cells this admission. Current hemoglobin 8.4. Platelets 219. White count 5.9. Sodium 130. Potassium 4.6. Bicarb 26. BUN 46. Creatinine 3.31. Glucose 180. She remains on bronchodilators. Heparin for DVT prophylaxis. Transitioned to oral Demadex, currently in a -1.6 L balance. The patient is seen today March 13, 2024 in follow-up in the intensive care unit. Postoperative day #16. She is awake and alert in no acute distress. Resting in bed. Both of her chest tubes have been removed. Chest x-ray reveals a trace right and small left pneumothorax. No evidence of pleural effusion or focal consolidation. White count 5.8. Hemoglobin 8.7. Platelets 181. Sodium 128. Potassium 4.9. Bicarb 23. BUN 37. Creatinine 3.07. Glucose 262. She remains on DuoNeb ventilations, Symbicort. Heparin for DVT prophylaxis. Objective - Vital Signs Vital signs: Vital Signs Temp 98.3 F 03/13/24 08:00 Pulse 66 03/13/24 10:00 Resp 14 03/13/24 10:00 BP 111/59 03/13/24 10:00 Pulse Ox 93 L 03/13/24 10:00 FiO2 40 02/26/24 16:39 Intake & Output 03/12/24 03/13/24 03/13/24 18:59 06:59 18:59 Intake Total 1520 100 500 Output Total 2600 678 0 Balance -9408 -562 500 Weight 84.4 kg 82.5 kg Intake: IV 50 Intake, IV Titration 100 Amount Albumin Human 25% 50 ml 100 In Empty Bag 1 bag @ 50 mls/hr IVPB Q1H [facility] Rx#: [id number] Oral 970 500 Hemodialysis 500 Output: Chest Tube Drainage 100 250 Left Pleural Chest Tube 40 250 Right Pleural Chest Tube 60 Urine 0 250 0 Post Void Residual 178 Hemodialysis 2500 Other: Voiding Method Toilet Bedside Commode Bedside Commode # Voids 1 1 # Bowel Movements 1 ABP, PAP, CO, CI - Last Documented Arterial Blood Pressure 139/47 Pulmonary Artery Pressure 36/20 Cardiac Output 4.2 Cardiac Index 2.3 - Exam GENERAL EXAM: Alert, 58-year-old female, sitting in bed, receiving hemodialysis, on room air, in no apparent distress. HEAD: Normocephalic and atraumatic EYES: Normal reaction of pupils, equal size. NOSE: Clear with pink turbinates. THROAT: No erythema or exudates. NECK: No masses, no JVD. Right IJ hemodialysis catheter in place. CHEST: Sternal dressing dry and intact. Heart hugger in place. LUNGS: Equal air entry with bibasilar crackles and mild and expiratory wheezes heard bilaterally. CVS: S1 and S2 normal with no audible murmur, irregular rhythm. No extra heart sounds ABDOMEN: No hepatosplenomegaly, active bowel sounds, no guarding or rigidity. SPINE: No scoliosis or deformity SKIN: No rashes CENTRAL NERVOUS SYSTEM: No focal deficits, tone is normal in all 4 extremities. EXTREMITIES: There is lower extremity edema, 1-2+ bilaterally. No clubbing, or cyanosis. Peripheral pulses are intact. - Labs CBC & Chem 7: 03/13/24 05:53 03/13/24 05:53 Labs: Abnormal Lab Results - Last 24 Hours (Table) 03/12/24 03/12/24 03/12/24 Range/Units 12:02 12:44 13:42 RBC (3.80-5.40) m/uL Hgb (11.4-16.0) gm/dL Hct (34.0-46.0) % MCHC (31.0-37.0) g/dL Sodium (137-145) mmol/L BUN (7-17) mg/dL Creatinine (0.52-1.04) mg/dL Glucose (74-99) mg/dL POC Glucose (mg/dL) 46 L* 59 L 49 L* (70-110) mg/dL Calcium (8.4-10.2) mg/dL 03/12/24 03/12/24 03/12/24 Range/Units 16:55 20:30 23:46 RBC (3.80-5.40) m/uL Hgb (11.4-16.0) gm/dL Hct (34.0-46.0) % MCHC (31.0-37.0) g/dL Sodium (137-145) mmol/L BUN (7-17) mg/dL Creatinine (0.52-1.04) mg/dL Glucose (74-99) mg/dL POC Glucose (mg/dL) 126 H 222 H 118 H (70-110) mg/dL Calcium (8.4-10.2) mg/dL 03/13/24 03/13/24 03/13/24 Range/Units 05:53 05:53 06:22 RBC 2.88 L (3.80-5.40) m/uL Hgb 8.7 L (11.4-16.0) gm/dL Hct 28.7 L (34.0-46.0) % MCHC 30.2 L (31.0-37.0) g/dL Sodium 128 L (137-145) mmol/L BUN 37 H (7-17) mg/dL Creatinine 3.07 H (0.52-1.04) mg/dL Glucose 262 H (74-99) mg/dL POC Glucose (mg/dL) 314 H (70-110) mg/dL Calcium 8.0 L (8.4-10.2) mg/dL Assessment and Plan Assessment: Acute non-ST elevation MO. Cardiac catheterization from 02/16/2024 revealed calcified coronary arteries. Severe triple-vessel disease. Status post off- pump CABG x 4 with sequential left internal mammary artery to left anterior descending coronary artery and diagonal coronary artery, reverse saphenous vein graft's to the posterior descending coronary artery and second obtuse marginal coronary artery, closure of the left atrial appendage with 35mm AtriCure clip on 02/26/2024 Acute hypoxemic respiratory failure secondary to exacerbation of systolic congestive heart failure, recovered and currently on room air, Ischemic cardiomyopathy with an estimated left ventricular ejection fraction s everely impaired at 20 to 25% as well as moderate to severe mitral valve regurgitation Severe mitral valve regurgitation Acute febrile illness, recovered Normocytic normochromic anemia, current hemoglobin 8.7, received 2 units of packed red blood cell Acute kidney injury, likely cardiorenal, current creatinine 3.07. Initiated on hemodialysis, permacath to be placed 03/12/2024 Metabolic non-anion gap acidosis, secondary to above Chronic obstructive pulmonary disease, stable Diabetes mellitus type 1 History of hyperlipidemia History of hypertension History of CVA/TIA History of hypothyroidism History of fibromyalgia History of GERD Mildly elevated LFTs, hepatitis panel nonreactive Former tobacco smoker, 1/2 pack/day or approximately 15-year pack history Plan: The patient was seen and evaluated Chest x-ray, labs and medications reviewed Stable and on room air Working well with the incentive spirometer Receiving hemodialysis per nephrology Transfer to the cardiac stepdown unit We will continue to follow I have personally seen and examined the patient, performed the documentation and the assessment and plan as written. Number of minutes spent on the visit: 10.
[2024-03-13 11:28] LABS: Glucose,Whole Blood 132 mg/dL (70-110)
--- NOTE | 2024-03-13 11:41 | P.PN ---
Subjective Progress Note Date: 03/13/24 Saldaña was removed on March 11, she has been able to void small amounts with PVR ranging between 150-200, she is asymptomatic. Denies any gross hematuria or dysuria. She is currently on hemodialysis Objective - Vital Signs Vital signs: Vital Signs Temp 98.3 F 03/13/24 08:00 Pulse 66 03/13/24 10:00 Resp 14 03/13/24 10:00 BP 111/59 03/13/24 10:00 Pulse Ox 93 L 03/13/24 10:00 FiO2 40 02/26/24 16:39 Intake & Output 03/12/24 03/13/24 03/13/24 18:59 06:59 18:59 Intake Total 1520 100 500 Output Total 2600 678 0 Balance -1080 -578 500 Weight 84.4 kg 82.5 kg Intake: IV 50 Intake, IV Titration 100 Amount Albumin Human 25% 50 ml 100 In Empty Bag 1 bag @ 50 mls/hr IVPB Q1H [facility] Rx#: [id number] Oral 970 500 Hemodialysis 500 Output: Chest Tube Drainage 100 250 Left Pleural Chest Tube 40 250 Right Pleural Chest Tube 60 Urine 0 250 0 Post Void Residual 178 Hemodialysis 2500 Other: Voiding Method Toilet Bedside Commode Bedside Commode # Voids 1 1 # Bowel Movements 1 ABP, PAP, CO, CI - Last Documented Arterial Blood Pressure 139/47 Pulmonary Artery Pressure 36/20 Cardiac Output 4.2 Cardiac Index 2.3 - Labs CBC & Chem 7: 03/13/24 05:53 03/13/24 05:53 Labs: Abnormal Lab Results - Last 24 Hours (Table) 03/12/24 03/12/24 03/12/24 Range/Units 12:02 12:44 13:42 RBC (3.80-5.40) m/uL Hgb (11.4-16.0) gm/dL Hct (34.0-46.0) % MCHC (31.0-37.0) g/dL Sodium (137-145) mmol/L BUN (7-17) mg/dL Creatinine (0.52-1.04) mg/dL Glucose (74-99) mg/dL POC Glucose (mg/dL) 46 L* 59 L 49 L* (70-110) mg/dL Calcium (8.4-10.2) mg/dL 03/12/24 03/12/24 03/12/24 Range/Units 16:55 20:30 23:46 RBC (3.80-5.40) m/uL Hgb (11.4-16.0) gm/dL Hct (34.0-46.0) % MCHC (31.0-37.0) g/dL Sodium (137-145) mmol/L BUN (7-17) mg/dL Creatinine (0.52-1.04) mg/dL Glucose (74-99) mg/dL POC Glucose (mg/dL) 126 H 222 H 118 H (70-110) mg/dL Calcium (8.4-10.2) mg/dL 03/13/24 03/13/24 03/13/24 Range/Units 05:53 05:53 06:22 RBC 2.88 L (3.80-5.40) m/uL Hgb 8.7 L (11.4-16.0) gm/dL Hct 28.7 L (34.0-46.0) % MCHC 30.2 L (31.0-37.0) g/dL Sodium 128 L (137-145) mmol/L BUN 37 H (7-17) mg/dL Creatinine 3.07 H (0.52-1.04) mg/dL Glucose 262 H (74-99) mg/dL POC Glucose (mg/dL) 314 H (70-110) mg/dL Calcium 8.0 L (8.4-10.2) mg/dL 03/13/24 Range/Units 11:27 RBC (3.80-5.40) m/uL Hgb (11.4-16.0) gm/dL Hct (34.0-46.0) % MCHC (31.0-37.0) g/dL Sodium (137-145) mmol/L BUN (7-17) mg/dL Creatinine (0.52-1.04) mg/dL Glucose (74-99) mg/dL POC Glucose (mg/dL) 132 H (70-110) mg/dL Calcium (8.4-10.2) mg/dL Assessment and Plan Assessment: 58-year-old female with urinary retention, Saldaña catheter was removed on March 11 and is able to void with a postvoid residual ranging from 1 50-200, she is asymptomatic currently -At this point her PVR is on the lower side, no need for Saldaña catheter.
[2024-03-13] MEDS: HYDROcodone/APAP 5-325MG 1 EACH TAB PO PRN (13:12)
[2024-03-13] MEDS: TORSEMIDE 20 MG TAB PO SCH (13:13)
--- NOTE | 2024-03-13 13:26 | P.PN ---
Subjective Progress Note Date: 03/13/24 Principal diagnosis: Acute kidney injury Patient is seen and examined today as a follow-up. She had tunneled catheter placed yesterday. X-ray was completed after with tip in correct position and no pneumothorax. She denies any chest pain or shortness of breath. Currently und ergoing hemodialysis without any complications. Objective - Vital Signs Vital signs: Vital Signs Temp 98.3 F 03/13/24 08:00 Pulse 65 03/13/24 09:00 Resp 14 03/13/24 09:00 BP 106/54 03/13/24 09:00 Pulse Ox 92 L 03/13/24 09:00 FiO2 40 02/26/24 16:39 Intake & Output 03/12/24 03/13/24 03/13/24 18:59 06:59 18:59 Intake Total 1520 100 500 Output Total 2600 678 0 Balance -1080 -578 500 Weight 84.4 kg 82.5 kg Intake: IV 50 Intake, IV Titration 100 Amount Albumin Human 25% 50 ml 100 In Empty Bag 1 bag @ 50 mls/hr IVPB Q1H [facility] Rx#: [id number] Oral 970 500 Hemodialysis 500 Output: Chest Tube Drainage 100 250 Left Pleural Chest Tube 40 250 Right Pleural Chest Tube 60 Urine 0 250 0 Post Void Residual 178 Hemodialysis 2500 Other: Voiding Method Toilet Bedside Commode Bedside Commode # Voids 1 1 # Bowel Movements 1 ABP, PAP, CO, CI - Last Documented Arterial Blood Pressure 139/47 Pulmonary Artery Pressure 36/20 Cardiac Output 4.2 Cardiac Index 2.3 - Exam General appearance: The patient is alert, oriented, appears in no acute distress. HET: Head is normocephalic and atraumatic. Pupils are equal and reactive. Neck: Supple. Right IJ tunneled catheter in place with dressing with no active bleeding. Heart: Regular. Lungs: Equal expansion, normal respiratory effort. Abdomen: Soft, nontender, nondistended. Extremities: Normal skin color and turgor. Right groin access site without any bleeding. Neurological: Alert and oriented. - Labs CBC & Chem 7: 03/13/24 05:53 03/13/24 05:53 Labs: Abnormal Lab Results - Last 24 Hours (Table) 03/12/24 03/12/24 03/12/24 Range/Units 12:02 12:44 13:42 RBC (3.80-5.40) m/uL Hgb (11.4-16.0) gm/dL Hct (34.0-46.0) % MCHC (31.0-37.0) g/dL Sodium (137-145) mmol/L BUN (7-17) mg/dL Creatinine (0.52-1.04) mg/dL Glucose (74-99) mg/dL POC Glucose (mg/dL) 46 L* 59 L 49 L* (70-110) mg/dL Calcium (8.4-10.2) mg/dL 03/12/24 03/12/24 03/12/24 Range/Units 16:55 20:30 23:46 RBC (3.80-5.40) m/uL Hgb (11.4-16.0) gm/dL Hct (34.0-46.0) % MCHC (31.0-37.0) g/dL Sodium (137-145) mmol/L BUN (7-17) mg/dL Creatinine (0.52-1.04) mg/dL Glucose (74-99) mg/dL POC Glucose (mg/dL) 126 H 222 H 118 H (70-110) mg/dL Calcium (8.4-10.2) mg/dL 03/13/24 03/13/24 03/13/24 Range/Units 05:53 05:53 06:22 RBC 2.88 L (3.80-5.40) m/uL Hgb 8.7 L (11.4-16.0) gm/dL Hct 28.7 L (34.0-46.0) % MCHC 30.2 L (31.0-37.0) g/dL Sodium 128 L (137-145) mmol/L BUN 37 H (7-17) mg/dL Creatinine 3.07 H (0.52-1.04) mg/dL Glucose 262 H (74-99) mg/dL POC Glucose (mg/dL) 314 H (70-110) mg/dL Calcium 8.0 L (8.4-10.2) mg/dL Assessment and Plan Assessment: Acute kidney injury, need for dialysis. Post tunneled catheter placement. Plan: 1. Patient is status post tunneled catheter placement right IJ 2. Dialysis per recommendations from nephrology Thank you for this consultation. The impression and plan of care has been dictated as directed. Dr. Saldaña I performed a history and examination of this patient, discussed the same with the dictator. I agree with the dictator's note ,documented as a scribe. Any additional findings or plans will be noted.
[2024-03-13 17:06] LABS: Glucose,Whole Blood 125 mg/dL (70-110)
[2024-03-13 19:46] LABS: Glucose,Whole Blood 126 mg/dL (70-110)
[2024-03-14 04:35] LABS: Glucose,Whole Blood 291 mg/dL (70-110)
[2024-03-14 06:12] LABS: Glucose,Whole Blood 305 mg/dL (70-110)
--- NOTE | 2024-03-14 07:17 | P.PN ---
Subjective This is a pleasant 58 years old female with past medical history of multiple medical problems as below She has been incarcerated for 52 days, there is officer at bedside. Patient presents because of shortness of breath and exertional dyspnea has for the last 2 days, she states she hears herself wheezing when she lies down. Currently she is breathing quietly. She is complaining for mild chest pain on the left side, nonradiating nonspecific, feels much better now and very mild. She has occasional cough but no phlegm. Also she is complaining from upset stomach but no diarrhea or vomiting She complains from decreased urination but no dysuria or urgency. She has mild headache feels generally weak but no dizziness or blurry vision. She used to smoke half pack per day before she got incarcerated No alcohol or illicit drugs. 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 Donal Herrera and warp spooler Dr. Babb who examined her about 2 months ago where she has some mild ulcer In the bottom of her right total This morning patient has low-grade fever 100.2 She is also mildly tachypneic around 22 She is saturating 93% on 2 L oxygen via nasal cannula Labs reviewed showing hemoglobin of 7.7, rest of CBC is unremarkable BMP liver enzymes not elevated. INR 0.9. Lactic 0.9 proBNP is elevated 25 100 EKG showing sinus rhythm at [address]-T changes, no left bundle branch block 02/17/2024 --Patient is seen and evaluated in room at bedside; remains on Lasix drip, remains in negative fluid balance - patient underwent cardiac catheterization which revealed severe triple-vessel coronary artery disease and now she is being evaluated for possible myocardial revascularization. Patient remains on oxygen at 2 L/min and her O2 sats is 97%, her PFT showed severe obstructive lung disease, however not severe enough to not consider myocardial revascularization if the patient is cleared by other consultants including nephrology and cardiology. Patient has been a smoker over the years, she had at least a 12-[id number]-tcfa smoking history. Remind you patient had a PFT with chest x-ray still showing evidence of pulmonary edema which will definitely compromise her PFT will likely reflect more restriction than obstructive lung disease. WBC count today is 4.9 hemoglobin 7.7 electrolytes are normal BUN is 85 creatinine 3.59 02/18/2024 Patient is seen and evaluated in room at bedside; sitting up in bed; ports stable breathing - patient underwent AFRICA which revealed aortic valve tricuspid and functioning normally. Mitral valve structurally normal with mild central secondary mitral regurgitation. Pulmonary vein flow has systolic dominance. Tricuspid valve appears to be normal with mild tricuspid regurgitation. Intra-atrial septum is intact with no evidence of PFO. Left atrial appendage free of clot. LV EF 35% with global hypokinesis. -- Patient is followed by cardiothoracic surgery and also nephrology. Nephrology not recommending any indication or need for hemodialysis. Patient remains on Lasix drip per nephrology. Patient has a negative fluid balance of 1322. Repeat blood work reveals hemoglobin is 7.9. BUN 82 creatinine 3.39. Mild elevation in liver function test. -Plan for surgery once clinically optimized 02/19/2024 Patient looks more awake than admission, sitting up in bed. Residential officers at bedside Mentation at baseline. She talks freely. Denies chest pain or dyspnea at rest On presentation patient was found acute CHF and non-STEMI, workup showing triple-vessel coronary artery disease and patient will require bypass procedure with cardiothoracic surgery team on the case once medically optimized. Patient currently with fluid overload on Lasix drip, on admission it was 5 mg/h, currently increased to 10 mg/h. She is making around 1 L of urine output by yesterday. Saldaña catheter in place. She is also on aspirin 81 mg Hemoglobin 8.5, creatinine 3.3 compared to 2.7 on admission with baseline 0.9- 1.2. Liver enzymes mildly elevated since admission. 02/20/2024 Patient came from halfway for an NSTEMI. Workup showing severe triple-vessel coronary artery disease currently being evaluated by cardiothoracic surgery team for possible cardiac bypass procedure. However she needs optimization and she is currently kept on IV Lasix 10 mg, creatinine went up 3.3 today. Perishable Fruit Inspector recommended to continue with Lasix drip still tomorrow Patient diabetic, she is on Levemir 8 units twice daily, she is developing episodes of hypoglycemia we will going to lower the dose to 6 units twice daily She is also on aspirin 325 mg 02/21/2024 Patient continues to improve today, she is more energetic, less dyspneic Lasix drip switched to IV Lasix 60 mg twice daily Cardiothoracic surgery team with plan for valve replacement surgery on this coming Sunday 02/25 Sugars better controlled with no hyperglycemia on Levemir 6 units twice daily 02/22/2024 Patient breathing is stable, denies chest pain No new complaint Will go check breathing tomorrow Plan for cardiac surgery on Monday02/23/2024 Patient awake alert She feels more weak today Creatinine is up Plan for cardiac surgery early next week 02/24/2024 Patient feels weak Patient anticipates surgery on Monday electorate officer at bedside 02/25/2024 Patient awake alert looks comfortable Generally weak Creatinine stable around 3.2 Plan for bypass cardiac surgery tomorrow, patient is agreeable to the current plan I am resuming the care of the patient on 03/12/2024 Patient awake and alert but very weak and lethargic She has average appetite. Denies chest pain dyspnea or abdominal pain She is getting hemodialysis with plan for permanent dialysis catheter placement today She remains on insulin drip, currently she is n.p.o. for the procedure then switched to levemir insulin 20 units daily and novolog 3 units with meal and iSS 03/13/2024 Patient sitting up in chair today Looks more comfortable more awake. She has good appetite and she finished most of her breakfast No specific new complaint she got her right internal jugular hemodialysis catheter in place, no hemo dialysis today 03/14/2024 Patient was transferred out of the ICU to select unit overnight. Currently sitting in chair looks relaxed comfortable. Mentation at baseline. No significant dyspnea or chest pain She has mild bilateral apical pneumothoraces. She still has left-sided chest tube in place while the right side chest tube was removed yesterday Patient got hemodialysis 3 days in a row. She had no hemodialysis yesterday or today. Next treatment will be most likely tomorrow. She is currently on aspirin 325 mg and Plavix. Glucose is controlled on Levemir 20 units and NovoLog 3 units with meals Objective - Vital Signs Vital signs: Vital Signs Temp 99.1 F 03/14/24 04:00 Pulse 59 L 03/14/24 04:00 Resp 14 03/14/24 04:00 BP 89/50 03/14/24 04:00 Pulse Ox 93 L 03/14/24 04:00 FiO2 40 02/26/24 16:39 Intake & Output 03/13/24 03/14/24 03/14/24 18:59 06:59 18:59 Intake Total 1222 120 Output Total 2700 Balance -1478 120 Weight 85.5 kg Intake: Oral 722 120 Hemodialysis 500 Output: Urine 200 Hemodialysis 2500 Other: Voiding Method Bedside Commode Bedside Commode # Voids 1 # Bowel Movements 1 ABP, PAP, CO, CI - Last Documented Arterial Blood Pressure 139/47 Pulmonary Artery Pressure 36/20 Cardiac Output 4.2 Cardiac Index 2.3 - Exam -GENERAL: The patient is alert and oriented x3, patient lethargic, not in any acute distress. Well developed, well nourished. Generally weak and lethargic HEENT: Pupils are round and equally reacting to light. EOMI. No scleral icterus. No conjunctival pallor. Normocephalic, atraumatic. No pharyngeal erythema. No thyromegaly. CARDIOVASCULAR: S1 and S2 present. No murmurs, rubs, or gallops. -PULMONARY: Chest is clear to auscultation, no wheezing , no crackles. Tachypnea -ABDOMEN: Soft, nontender, nondistended, normoactive bowel sounds. No palpable organomegaly. Saldaña catheter in place MUSCULOSKELETAL: No joint swelling or deformity. -EXTREMITIES: No cyanosis, clubbing, 1+ bilateral pitting leg edema. NEUROLOGICAL: Gross neurological examination did not reveal any focal deficits. SKIN: No rashes. no petechiae. - Labs CBC & Chem 7: 03/13/24 05:53 03/13/24 05:53 Labs: Abnormal Lab Results - Last 24 Hours (Table) 03/13/24 03/13/24 03/13/24 Range/Units 11:27 17:04 19:45 POC Glucose (mg/dL) 132 H 125 H 126 H (70-110) mg/dL 03/14/24 03/14/24 Range/Units 04:33 06:11 POC Glucose (mg/dL) 291 H 305 H (70-110) mg/dL Assessment and Plan Assessment: Acute systolic CHF exacerbation, ejection fraction: 20 to 25% non-STEMI, ekg New left bundle branch block, secondary to triple-vessel coronary artery disease requiring CABG Mild hypoxic respiratory failure, improved Acute kidney injury on chronic kidney disease, requiring hemodialysis, new onset Acute on chronic anemia of chronic disease Acute urinary tract infection, urine culture showing skin or genital kwesi. 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 Next hemodialysis on 03/15 Repeat chest x-ray showing stable pneumothorax. Right chest tube was removed. Left chest tube in place. Continue with hemodialysis. s/p dialysis catheter on 03/12 Cardiothoracic surgery team on the case with plan for bypass procedure for coronary artery disease Continue with toresmide Nephrology team consult Patient currently on aspirin and plvix Cardiology consult on the case Labs and medication were reviewed.. Continue same treatment. Continue with symptomatic treatment. Resume home medication. Monitor labs and vitals. DVT and GI prophylaxis. Further recommendations as per clinical course of the patient DVT prophylaxis: heparin GI Prophylaxis: Pepcid Prognosis is guarded given her multiple disease of the heart kidneys
[2024-03-14 08:08] LABS: HCT 28.6 % (34.0-46.0); HGB 8.5 gm/dL (11.4-16.0); Hypochromasia Marked; MCH 29.6 pg (25.0-35.0); MCHC 29.8 g/dL (31.0-37.0); MCV 99.4 fL (80.0-100.0); Macrocytosis Slight; Mean Platelet Volume 8.1; Platelet Count 167 k/uL (150-450); RBC 2.87 m/uL (3.80-5.40); RDW 14.4 % (11.5-15.5); WBC 6.2 k/uL (3.8-10.6)
--- NOTE | 2024-03-14 08:19 | XR ---
EXAMINATION TYPE: XR chest 1V portable DATE OF EXAM: 03/14/2024 6:44 AM CLINICAL INDICATION:Female, 58 years old with history of post cardiac surgery; [facility] COMPARISON: Chest radiograph from one day prior. TECHNIQUE: XR chest 1V portable Frontal view of the chest. FINDINGS: Lungs/Pleura: Suspected small left pneumothorax. Limited evaluation of the right lung apex. There is no evidence of pleural effusion, focal consolidation. Pulmonary vascularity: Unremarkable. Heart/mediastinum: Cardiomediastinal silhouette is unremarkable. A loop recorder projects over the le ft thorax over the heart. Left atrial appendage occlusion device is present. Musculoskeletal: No acute osseous pathology. Midline sternotomy wires are noted. Other findings: None Lines/Tubes: Left thoracotomy tube is removed. There remains a small left pneumothorax. No obvious right pneumotho rax after today's exam. Right internal jugular central venous catheter with distal tip at the cavoatrial junction. Right-sided PICC line with distal tip at the cavoatrial junction. IMPRESSION: 1. Right central venous catheter with tip in appropriate position. 2. Left thoracotomy tube with small pneumothorax. 3. No evidence of right pneumothorax on today's exam overlapping structures limits evaluation of the right lung apex.
[2024-03-14 09:05] LABS: African American GFR (CKD) 19 (>60 ml/min/1.73 sqM); Anion Gap 4 mmol/L; Blood Urea Nitrogen 30 mg/dL (7-17); Carbon Dioxide 27 mmol/L (22-30); Chloride 97 mmol/L (98-107); Glucose 296 mg/dL (74-99); Magnesium 1.8 mg/dL (1.6-2.3); Non-African American GFR(CKD) 17 (>60 ml/min/1.73 sqM); Phosphorus 4.3 mg/dL (2.5-4.5); Sodium 128 mmol/L (137-145)
--- NOTE | 2024-03-14 09:18 | P.PN ---
Subjective Progress Note Date: 03/14/24 Principal diagnosis: Triple-vessel coronary artery disease, non-STEMI this admission, acute heart failure with reduced ejection fraction, new onset ischemic cardiomyopathy, moderate to severe mitral regurgitation, acute on chronic kidney disease, acute anemia. History of hypertension, hyperlipidemia, hypothyroid, diabetes mellitus, CVA, hepatitis as a child, CKD stage IV, previous tobacco dependence with recent cessation, severe COPD, previous methamphetamine use with recent cessation, family history of coronary artery disease POD #17 Off-pump CABG x 4 with sequential left internal mammary artery to left anterior descending coronary artery and diagonal coronary artery, reverse saphenous vein graft to the posterior descending coronary artery and second obtuse marginal coronary artery, closure of the left atrial appendage with 35mm AtriCure clip, placement of percutaneous right femoral intra-aortic balloon pump, transesophageal echocardiogram performed by anesthesia. Postoperative acute blood loss anemia, expected secondary to hemodilution and preoperative anemia Postoperative paroxysmal atrial fibrillation, a known common occurrence after cardiac surgery, not a complication Acute kidney injury secondary to ATN secondary to cardiorenal syndrome, not a complication as it was expected due to preoperative acute on chronic kidney disease POD #7 ultrasound-guided right common femoral vein access and placement of central venous catheter for dialysi POD #2 ultrasound-guided right internal jugular vein access, placement of 19 cm tunneled dialysis catheter with fluoroscopic assistance under moderate conscious sedation completed by Dr. Barker The patient was seen and examined with Dr. Gillette this morning sitting up in recliner on the cardiac stepdown unit in no acute distress. States pain is controlled on current medication regimen, denies shortness of breath. Currently in sinus rhythm, hemodynamically stable, systolic blood pressure occasionally so ft but mean arterial pressure remains stable. Patient did not receive 2 doses of hydralazine, 2 doses of Isordil, or 1 dose of Lopressor yesterday due to soft blood pressures and hemodialysis. Currently on room air with oxygen saturation in the mid 90s. Able to achieve 1000 mL on her incentive spirometry. She has been ambulatory with assistance, ambulated out into the hallway 3 times yesterday. Chest x-ray, labs reviewed. Received dialysis the last 3 days. Patient's only complaint is frustration with remaining in the hospital. Remains with right-sided PICC line and right internal jugular permacath. Awaiting discharge decision, inpatient rehab versus subacute rehab. No other new con cerns. Objective - Vital Signs Vital signs: Vital Signs Temp 99.0 F 03/14/24 08:04 Pulse 66 03/14/24 08:04 Resp 16 03/14/24 08:04 BP 86/47 03/14/24 08:04 Pulse Ox 94 L 03/14/24 08:04 FiO2 40 02/26/24 16:39 Intake & Output 03/13/24 03/14/24 03/14/24 18:59 06:59 18:59 Intake Total 1222 120 Output Total 2700 Balance -1478 120 Weight 85.5 kg Intake: Oral 722 120 Hemodialysis 500 Output: Urine 200 Hemodialysis 2500 Other: Voiding Method Bedside Commode Bedside Commode # Voids 1 # Bowel Movements 1 ABP, PAP, CO, CI - Last Documented Arterial Blood Pressure 139/47 Pulmonary Artery Pressure 36/20 Cardiac Output 4.2 Cardiac Index 2.3 - Exam CONSTITUTIONAL: Appears comfortable, cooperative, no acute distress RESPIRATORY: Lungs sounds diminished bilaterally. Respirations even, nonlabored. Currently on room air with oxygen saturation 93%. Able to achieve 1000 mL on incentive spirometry. Weak cough. CARDIOVASCULAR: S1, S2 present. Regular rate and rhythm, sinus rhythm on telemetry. Sternum stable. Palpable peripheral pulses bilaterally. Bilateral lower extremity edema present. No calf pain or tenderness noted. Heart hugger in place with patient demonstrating appropriate use. Antiembolism stockings, SCDs present. GASTROINTESTINAL: Abdomen soft, nontender, nondistended. Active bowel sounds present 4 quadrants. Tolerating diet. Positive bowel movement 6/5 GENITOURINARY: Continues to void although not always measured. Receiving hemodialysis per nephrology INTEGUMENTARY: Skin is warm and dry with evidence of good perfusion. Anterior chest incision well approximated and covered with dry intact dressing. Left lower extremity EVH site well approximated without redness or drainage. NEUROLOGIC: Cranial nerves II through XII intact MUSKULOSKELETAL: Able to move all extremities, strength equal bilaterally PSYCHIATRIC: Alert and oriented to person place and time, appropriate affect, intact judgment and insight INVASIVE LINES AND TUBES: Left pleural chest tube present to waterseal, 120 mL serous drainage overnight, 200 mL in the last 24 hours. Right upper arm PICC present. Right internal jugular permacath present - Allied health notes Allied health notes reviewed: nursing - Labs CBC & Chem 7: 03/14/24 07:31 03/14/24 07:31 Labs: Abnormal Lab Results - Last 24 Hours (Table) 03/13/24 03/13/24 03/13/24 Range/Units 11:27 17:04 19:45 RBC (3.80-5.40) m/uL Hgb (11.4-16.0) gm/dL Hct (34.0-46.0) % MCHC (31.0-37.0) g/dL Sodium (137-145) mmol/L Chloride (98-107) mmol/L BUN (7-17) mg/dL Creatinine (0.52-1.04) mg/dL Glucose (74-99) mg/dL POC Glucose (mg/dL) 132 H 125 H 126 H (70-110) mg/dL Calcium (8.4-10.2) mg/dL 03/14/24 03/14/24 03/14/24 Range/Units 04:33 06:11 07:31 RBC 2.87 L (3.80-5.40) m/uL Hgb 8.5 L (11.4-16.0) gm/dL Hct 28.6 L (34.0-46.0) % MCHC 29.8 L (31.0-37.0) g/dL Sodium (137-145) mmol/L Chloride (98-107) mmol/L BUN (7-17) mg/dL Creatinine (0.52-1.04) mg/dL Glucose (74-99) mg/dL POC Glucose (mg/dL) 291 H 305 H (70-110) mg/dL Calcium (8.4-10.2) mg/dL 03/14/24 Range/Units 07:31 RBC (3.80-5.40) m/uL Hgb (11.4-16.0) gm/dL Hct (34.0-46.0) % MCHC (31.0-37.0) g/dL Sodium 128 L (137-145) mmol/L Chloride 97 L (98-107) mmol/L BUN 30 H (7-17) mg/dL Creatinine 2.96 H (0.52-1.04) mg/dL Glucose 296 H (74-99) mg/dL POC Glucose (mg/dL) (70-110) mg/dL Calcium 8.0 L (8.4-10.2) mg/dL - Imaging and Cardiology Chest x-ray: report reviewed, image reviewed Assessment and Plan Assessment: Triple-vessel coronary artery disease, non-STEMI this admission, status post four-vessel off-pump CABG Acute heart failure with reduced ejection fraction, 20-25%, 35% on [place] New onset ischemic cardiomyopathy Moderate to severe mitral regurgitation on transthoracic echocardiogram, mild mitral regurgitation on [place] Acute on chronic kidney disease secondary to ATN secondary to cardiorenal syndrome, status post right femoral vein temporary dialysis catheter placement, status post right internal jugular permacath, receiving dialysis per nephrology Acute anemia Hypertension Hyperlipidemia, treated, cholesterol 150, LDL 72.8 Hypothyroid, TSH 1.73 Diabetes mellitus, hemoglobin A1c 7.1% CVA Hepatitis as a child CKD Previous tobacco dependence with recent cessation Severe COPD, preoperative FEV1 27% of predicted Previous methamphetamine use with recent cessation Family history of coronary artery disease with sister having multiple stents Postoperative acute blood loss anemia, expected Postoperative paroxysmal atrial fibrillation, status post ligation of the left atrial appendage, currently sinus Postoperative urinary retention requiring re-initiation of barker, expected given pre-op retention Medical debility Plan: Continue to maximize medical therapy with aspirin, statin, Plavix, beta-alex. Will increase beta-alex as tolerated Continue hydralazine for afterload reduction with hold parameters Continue oral amiodarone for A-fib prophylaxis Encourage incentive spirometry use 10 times every hour while awake. Bronchodilators per pulmonology Increase activity, ambulate as tolerated. PT/OT/cardiac rehab consulted Will monitor daily labs and x-rays. Electrolyte replacement per protocol. Continue Demadex per nephrology Hemodialysis per nephrology, last round was yesterday with removal of 2.5 L GI/DVT prophylaxis Pain control per current medication regimen. Avoid Toradol due to kidney failure Insulin management per internal medicine Continue to record strict accurate intake and output Daily weights Discharge planning in progress, anticipate discharge to [facility] versus [facility] in the next 24-48 hours More recommendations to follow
--- NOTE | 2024-03-14 11:02 | P.PN ---
Subjective Patient is seen in follow-up for acute kidney injury. Started on hemodialysis March 08, 2024. Has permacath. No problems with dialysis yesterday. Hemodynamically stable. Vital signs are stable. General: No acute distress. HEENT: Head exam is unremarkable. On nasal cannula. LUNGS: No audible rhonchi or wheezes. HEART: Rate and Rhythm are regular. ABDOMEN: Nontender. EXTREMITITES: 1+ edema. Objective - Vital Signs Vital signs: Vital Signs Temp 99.0 F 03/14/24 08:04 Pulse 66 03/14/24 08:04 Resp 16 03/14/24 08:04 BP 86/47 03/14/24 08:04 Pulse Ox 96 03/14/24 09:16 FiO2 40 02/26/24 16:39 Intake & Output 03/13/24 03/14/24 03/14/24 18:59 06:59 18:59 Intake Total 1222 120 Output Total 2700 Balance -1478 120 Weight 85.5 kg Intake: Oral 722 120 Hemodialysis 500 Output: Urine 200 Hemodialysis 2500 Other: Voiding Method Bedside Commode Bedside Commode Bedside Commode # Voids 1 # Bowel Movements 1 ABP, PAP, CO, CI - Last Documented Arterial Blood Pressure 139/47 Pulmonary Artery Pressure 36/20 Cardiac Output 4.2 Cardiac Index 2.3 - Labs CBC & Chem 7: 03/14/24 07:31 03/14/24 07:31 Labs: Abnormal Lab Results - Last 24 Hours (Table) 03/13/24 03/13/24 03/13/24 Range/Units 11:27 17:04 19:45 RBC (3.80-5.40) m/uL Hgb (11.4-16.0) gm/dL Hct (34.0-46.0) % MCHC (31.0-37.0) g/dL Sodium (137-145) mmol/L Chloride (98-107) mmol/L BUN (7-17) mg/dL Creatinine (0.52-1.04) mg/dL Glucose (74-99) mg/dL POC Glucose (mg/dL) 132 H 125 H 126 H (70-110) mg/dL Calcium (8.4-10.2) mg/dL 03/14/24 03/14/24 03/14/24 Range/Units 04:33 06:11 07:31 RBC 2.87 L (3.80-5.40) m/uL Hgb 8.5 L (11.4-16.0) gm/dL Hct 28.6 L (34.0-46.0) % MCHC 29.8 L (31.0-37.0) g/dL Sodium (137-145) mmol/L Chloride (98-107) mmol/L BUN (7-17) mg/dL Creatinine (0.52-1.04) mg/dL Glucose (74-99) mg/dL POC Glucose (mg/dL) 291 H 305 H (70-110) mg/dL Calcium (8.4-10.2) mg/dL 03/14/24 Range/Units 07:31 RBC (3.80-5.40) m/uL Hgb (11.4-16.0) gm/dL Hct (34.0-46.0) % MCHC (31.0-37.0) g/dL Sodium 128 L (137-145) mmol/L Chloride 97 L (98-107) mmol/L BUN 30 H (7-17) mg/dL Creatinine 2.96 H (0.52-1.04) mg/dL Glucose 296 H (74-99) mg/dL POC Glucose (mg/dL) (70-110) mg/dL Calcium 8.0 L (8.4-10.2) mg/dL Assessment and Plan Plan: Assessment: 1. Acute kidney injury secondary to ATN secondary to cardiorenal syndrome. Also from hypotension. Started on hemodialysis March 08, 2024. Has permacath. Creatinine as low as 0.98 dated March 01, 2022. No hydronephrosis noted on kidney ultrasound. Serologies negative. 2. Acute on chronic systolic CHF with ejection fraction of 20 to 25% with moderate to severe mitral regurgitation and mild pulmonary hypertension. 3. Volume overload. Improving with ultrafiltration. 4. Anemia. Iron deficiency noted - s/p IV iron completed 03/02/24. Seen by GI. Status post blood transfusion this admission. Also received IV DDAVP. On Aranesp. 5. Metabolic acidosis secondary to acute kidney injury and IV fluids. Better. 6. Hyponatremia secondary to acute kidney injury. Hypervolemic. Stable. 7. Urinary retention status post Salda[place] catheter placement. On Flomax. Salda[place] catheter now removed. Plan: Hemodialysis tomorrow. Maintain torsemide. Avoid nephrotoxins. Blood pressure on the lower side. Has parameters for hydralazine. Continue to monitor renal function and urine output. Phosphorus level 4.5 dated March 13, 2024. [facility] hemod[facility].
--- NOTE | 2024-03-14 11:47 | P.PN ---
Subjective Progress Note Date: 03/14/24 Principal diagnosis: Coronary artery disease, CHF. The patient is seen today February 12, 2024 in follow-up on the selective care unit. She is currently sitting up in bed. Awake and alert in no acute distress. She is maintaining O2 saturation in the 90s on 3 L nasal cannula. She is afebrile. Hemodynamically stable. Today's chest x-ray reviewed reveals diffuse bilateral infiltrates with small effusion or early congestive heart failure. Hemoglobin 6.7. 1 unit of packed blood cells have been ordered. Platelets 362. White count 6.1. Sodium 131. Potassium 4.2. Bicarb 21. BUN 80. Creatinine 3.89. Glucose 286. She remains on. Antibiotics in the form of ceftriaxone. Remains on a Lasix drip at 5 mg an hour. Currently in a -178 mL balance. The patient is seen today February 13, 2024 in follow-up on the selective care unit. She is awake and alert in no acute distress. Sitting up in bed. Blood and urine cultures revealed no growth. White count 6.2. Hemoglobin 7.4. Platelets 01/05/1978. Sodium 133. Potassium 3.9. Bicarb 21. BUN 83. Creatinine 3.60. Glucose 154. She remains on a Lasix drip currently at 5 mg/h. She remains on a heparin drip. Receiving sodium bicarb tablets. Continued on bronchodilators. Continued on antibiotics in the form of ceftriaxone. She is currently in a negative balance. Voided 1 L today. The patient is seen today February 14, 2024 in follow-up on the selective care unit. She is currently sitting up in bed. Awake and alert in no acute distress. She is maintaining good O2 saturations in the 90s on 3 L/min per nasal cannula. She is afebrile. Hemodynamically stable. Follow-up chest x-ray continues to show diffuse bilateral infiltrate with small effusions. She is status post 1 unit of packed red blood cells this admission. Last hemoglobin 7.7. Sodium 135. Potassium 4.6. Bicarb 20. BUN 87. Creatinine 3.55. Glucose 358. She is continued on bronchodilators. Antibiotics in form of ceftriaxone. She remains on a Lasix drip at 10 mg/h. Receiving sodium bicarb tablets. Currently -688 mL balance. Nephrology is following. The patient is seen today February 15, 2024 in follow-up on the selective care unit. She is currently sitting up in bed awake and alert in no acute distress. She is maintaining O2 saturations in the mid 90s on 2 L/min per nasal cannula. She is afebrile. Hemodynamically stable. White count 6.8. Hemoglobin 8.6. Platelets 438. Sodium 135. Potassium 4.0. Bicarb 21. BUN 84. Creatinine 3.41. Glucose 171. She remains on a Lasix drip at 10 mg/h. Continued on a heparin drip. Plan to -1 L balance. Stress testing today reveals a large area of fixed defect involving all segments of the myocardium suggestive of remote ischemia. Could not exclude a tiny area of stress-induced reversibility within the apex. Reduced wall motion activity with ejection fraction of only 21%. Patient was seen and examined today on 02/16/2024 patient is feeling better today, continues to diurese with a Lasix drip, remains in negative fluid balance, patient underwent cardiac catheterization today and she was found to have severe triple-vessel coronary artery disease, now she is being evaluated by surgery, patient does have severe LV dysfunction, she is definitely high surgical risk, but no absolute contraindication to surgery.Basic metabolic profile is normal BUN is 85 creatinine 3.58 however the patient may require hemodialysis, and she will need nephrology clearance she will also need a bedside spirometry/FEV1 for preoperative pulmonary clearance in the meantime we will continue diuretics/Lasix drip Patient was reevaluated today on 02/17/2024, remains on Lasix drip, remains in ne gative fluid balance, patient is very well aware that she had abnormal cardiac catheterization and now she is being evaluated for possible myocardial revascularization. Patient remains on oxygen at 2 L/min and her O2 sats is 97%, her PFT showed severe obstructive lung disease, however not severe enough to not consider myocardial revascularization if the patient is cleared by other consultants including nephrology and cardiology. Patient has been a smoker over the years, she had at least a [id number] smoking history. Remind you patient had a PFT with chest x-ray still showing evidence of pulmonary edema which will definitely compromise her PFT will likely reflect more restriction than ob structive lung disease. WBC count today is 4.9 hemoglobin 7.7 electrolytes are normal BUN is 85 creatinine 3.59 Patient was reevaluated today on 02/18/2024, remains on Lasix drip, 10 mg/h, remains in constant negative fluid balance, chest x-ray today is definitely showing improvement but nonetheless her pulmonary edema is not completely resolved. Patient was being considered for CABG however the plan is presently on hold because of her overall pulmonary status and possibly the patient could benefit from more optimization of her congestive heart failure. In the meantime she seems to be doing better with the Lasix drip. Patient is also maintained on bronchodilators for her underlying COPD. Progress note dated February 19, 2024. The patient is seen today in room 385. She was scheduled to have bypass grafting today, but the surgery was canceled. She is currently on 3 L of oxygen by nasal cannula. She continues on a Lasix drip at 10 mg an hour. I did have the opportunity to review her lung function. Her FEV1 is 0.77 L or 27% of predicted. Based on that number alone, without having to evaluate the MVV, or the RV/TLC ratio, the patient is at high increased operative risk. Current laboratory data includes a white count 5.1, hemoglobin 8.3, hematocrit 26.6, and a platelet count of 403,000. Sodium 137, potassium 3.5, chlorides 101, CO2 28, BUN 82, and creatinine 3.34. Calcium is 8.2. Nasal screen was positive for non-MRSA staph. Chest x-ray is consistent with mild CHF. The patient is seen today February 20, 2024 in follow-up on the selective care unit. She is currently sitting up in bed. Awake and alert in no acute distress. She is maintaining O2 saturations in the 90s on 3 L/min per nasal cannula. She remains on a Lasix drip at 10 mg/h. Currently net -1 L balance. White count 4.8. Hemoglobin 7.8. Platelets 309. Sodium 132. Potassium 3.7. Bicarb 28. BUN 84. Creatinine 3.31. Glucose 240. She remains on bronchodilators. Heparin for DVT prophylaxis. She has been worked up for possible coronary artery bypass surgery once she recovers from her acute illness. The patient is seen today February 21, 2024 in follow-up on the selective care unit. She is awake and alert in no acute distress. Maintaining good O2 saturations in the 90s on 2 L/min per nasal cannula. She is continued on Lasix drip at 10 mg/h. This x-ray continues to show interstitial pulmonary edema with small left greater than right pleural effusions. She is status post 1 unit of packed red blood cells this admission. Current hemoglobin 8.2. Platelets 301. White count 5.5. Sodium 133. Potassium 3.9. Bicarb 30. BUN 84. Creatinine 3.05. Glucose 108. Remains on bronchodilators. Heparin for DVT prophylaxis. She is currently in a +159 ml balance. The patient is seen today February 22, 2024 in follow-up on the selective care unit. She is resting comfortably in bed. Awake and alert in no acute distress. Denies any chest pain. No worsening shortness of breath, cough or congestion. Maintaining good O2 saturations in the mid 90s on 2 L/min per nasal cannula. She is afebrile. Hemodynamically stable. She is maintained on DuoNeb inhalations, Pulmicort and Perforomist inhalations, Robitussin as needed. Heparin for DVT prophylaxis. She is continued on diuretics. Currently in a - 800 mL balance. Glucose 269. Progress note dated February 23, 2024. The patient is seen today in room 385. She is resting comfortably. She is on 2 L. She is not receiving any IV fluids. Current labs include a white count 4.8, hemoglobin 7.7, hematocrit 25.6, and a platelet count of 294,000. Sodium 131, potassium 4.3, chlorides 97, CO2 30, BUN 82, creatinine 3.32. Glucose is 164. Calcium 7.8, and magnesium 1.9. The nasal swab, on February 15, was positive for non-MRSA, staph. A chest x-ray today shows similar multifocal airspace opacities. Progress note dated February 24, 2024. This is a 58-year-old female seen today in room 385. She is on oxygen at 2 L. She is not receiving any IV fluids. Today, respiratory was kind enough to repeat spirometry. Her FEV1, prebronchodilator, was 0.71 L. Her FEV1 postbronchodilator was 0.83 L. These lung function are very similar to the prio r lung function, that was done a few days ago. Clinically, the patient's respiratory status appears to be stable. She is satting well on 2 L. She is not manifesting any signs or symptoms of respiratory difficulty or distress. Current laboratory data includes a white count 6.1, hemoglobin 8, hematocrit 26.8, and a normal platelet count. Sodium 134, potassium 3.8, chlorides 99, CO2 30, BUN 78, and creatinine 3.24. Glucose Was 195. Calcium 8.3, Magnesium Is 1.9. Chest x-ray is essentially unchanged, and reveals evidence of cardiomegaly. Progress note dated February 25, 2024. 58-year-old female who apparently scheduled to have open heart surgery tomorrow, February 25. The patient is currently on 2 L of oxygen. No IV fluids. She has been relatively stable over the last 2 or 3 days. The patient had repeat spirometry yesterday, which showed a FEV1, postbronchodilator, of 0.83. Which is only slightly better than her previous FEV1. Certainly, she would be at high risk, for general anesthesia. Current laboratory data includes a white count 4.7, hemoglobin 8.1, hematocrit 26.8, and a normal platelet count. Coagulation studies are normal. Sodium 133, potassium 4.3, chloride 99, CO2 32, BUN 77, creatinine 3.20. Glucose is 87. AST is 50. ALT is 40. Albumin is 2.3. Chest x-ray shows cardiomegaly, with the persistent diffuse interstitial changes. Patient was reevaluated today on 03/10/2024, remains in the ICU, remains on room air, patient is now postoperative day #13 off pump CABG x 4 with sequential left internal mammary artery to left anterior descending coronary artery and diagonal coronary artery, reverse saphenous vein graft's to the posterior descending coronary artery and second obtuse marginal coronary artery, closure of the left atrial appendage with 35mm AtriCure clip patient remains in the ICU, doing fairly well, however continues to have bilateral pleural chest tubes in place, and significant amount of drainage noted in the last 24 hours and both tubes. 5 00 mL of drainage from the right-sided chest tube, and another 500 from the left-sided chest tube over the last 24 hours patient is not scheduled to undergo hemodialysis today. But she did have dialysis yesterday. Had 3 L removed yesterday. Clinically she is doing well, but considering her LV dysfunction her overall prognosis remains extremely poor and guarded. At this point no plans to remove any of the chest tubes considering her significant amount of drainage in the last 24 hours chest x-ray is reassuring there is evidence of tiny small biapical pneumothoraces. No air leak noted.WBC is 5.2 hemoglobin 8.7 electrolytes are normal BUN is 52 creatinine 3.54 The patient is seen today March 11, 2024 in follow-up in the intensive care unit. Postoperative day #14 following coronary bypass surgery. She is currently awake and alert in no acute distress. Sitting up in bed. She is maintaining O2 saturations in the 90s on room air. No IV fluids. She is to receive hemodialysis today with a goal of 2 L to be removed. Her bilateral chest tubes remain in place. The left chest tube drained another 200 mL of serous drainage while the right chest tube drained another 230 mL overnight. Chest x-ray reveals postsurgical changes with mild pulmonary edema. No significant change. Small left pneumothorax. She is status post 2 units of packed red blood cells this admission. Current hemoglobin 8.3. White count 5.3. Platelets 253. Sodium 130. Potassium 4.5. Bicarb 26. BUN 59. Creatinine 4.0. Glucose 189. She remains on DuoNeb ventilations, Symbicort. Working well with the incentive spirometer. Heparin for DVT prophylaxis. Remains on IV Bumex. Currently in a -1.2 L balance The patient is seen today March 12, 2024 in follow-up in the intensive care unit. Postoperative day #15. She is currently resting in bed. Awake and alert in no acute distress. She is maintaining good O2 saturations in the 90s on room air. The plan is for the right-sided chest tube to be removed today and possibly the left-sided 1 to be removed tomorrow. She is going for permacath today. She received hemodialysis yesterday with 2 L removed. Receiving hemodialysis again today with a goal of 2 L as well. Chest x-ray reveals surgical changes with mild pulmonary edema. Small left-sided pneumothorax. She has received 2 units of packed red blood cells this admission. Current hemoglobin 8.4. Platelets 219. White count 5.9. Sodium 130. Potassium 4.6. Bicarb 26. BUN 46. Crea tinine 3.31. Glucose 180. She remains on bronchodilators. Heparin for DVT prophylaxis. Transitioned to oral Demadex, currently in a -1.6 L balance. The patient is seen today March 13, 2024 in follow-up in the intensive care unit. Postoperative day #16. She is awake and alert in no acute distress. Resting in bed. Both of her chest tubes have been removed. Chest x-ray reveals a trace right and small left pneumothorax. No evidence of pleural effusion or focal consolidation. White count 5.8. Hemoglobin 8.7. Platelets 181. Sodium 128. Potassium 4.9. Bicarb 23. BUN 37. Creatinine 3.07. Glucose 262. She remains on DuoNeb ventilations, Symbicort. Heparin for DVT prophylaxis. Progress note dated March 14, 2024. The patient is seen today in room 352. She was in the intensive care unit yesterday. She was finally moved out. Today is postoperative day #17. Currently, the patient is on room air. She is not receiving any IV fluids. Both sided chest tubes have been removed. Current labs include a white count 6.2, hemoglobin 8.5, hematocrit 28.6, and a normal platelet count. Sodium 128, potassium 4, chlorides 97, CO2 27, BUN 30, creatinine 2.96. Glucose is 296. Calcium is 8. Chest x-ray shows a small left-sided pneumothorax. No evidence of right pneumothorax. Objective - Vital Signs Vital signs: Vital Signs Temp 98.3 F 03/14/24 11:25 Pulse 62 03/14/24 11:25 Resp 18 03/14/24 11:25 BP 112/60 03/14/24 11:25 Pulse Ox 96 03/14/24 11:25 FiO2 40 02/26/24 16:39 Intake & Output 03/13/24 03/14/24 03/14/24 18:59 06:59 18:59 Intake Total 1222 120 Output Total 2700 Balance -1478 120 Weight 85.5 kg Intake: Oral 722 120 Hemodialysis 500 Output: Urine 200 Hemodialysis 2500 Other: Voiding Method Bedside Commode Bedside Commode Bedside Commode # Voids 1 # Bowel Movements 1 ABP, PAP, CO, CI - Last Documented Arterial Blood Pressure 139/47 Pulmonary Artery Pressure 36/20 Cardiac Output 4.2 Cardiac Index 2.3 - Exam No acute distress, oriented 3. The patient is currently on room air. HEENT examination is grossly unremarkable. Mucous membranes are moist. No oral lesions. Neck supple. Full range of motion. No adenopathy thyromegaly or neck vein distention. Cardiovascular examination reveals regular rhythm rate. S1-S2 normal. No S3 or S4. No discernible murmur noted. Heart rate 62 bpm. Lungs reveal scattered rhonchi and crackles. Breath sounds are otherwise equal. No wheezes. Saturation is 96%. Abdomen soft bowel sounds are heard. No masses or tenderness. Extremities are intact. No cyanosis clubbing or edema. Skin is without rash or lesion. Neurologic examination is brief but nonfocal. - Labs CBC & Chem 7: 03/14/24 07:31 03/14/24 07:31 Labs: Abnormal Lab Results - Last 24 Hours (Table) 03/13/24 03/13/24 03/14/24 Range/Units 17:04 19:45 04:33 RBC (3.80-5.40) m/uL Hgb (11.4-16.0) gm/dL Hct (34.0-46.0) % MCHC (31.0-37.0) g/dL Sodium (137-145) mmol/L Chloride (98-107) mmol/L BUN (7-17) mg/dL Creatinine (0.52-1.04) mg/dL Glucose (74-99) mg/dL POC Glucose (mg/dL) 125 H 126 H 291 H (70-110) mg/dL Calcium (8.4-10.2) mg/dL 03/14/24 03/14/24 03/14/24 Range/Units 06:11 07:31 07:31 RBC 2.87 L (3.80-5.40) m/uL Hgb 8.5 L (11.4-16.0) gm/dL Hct 28.6 L (34.0-46.0) % MCHC 29.8 L (31.0-37.0) g/dL Sodium 128 L (137-145) mmol/L Chloride 97 L (98-107) mmol/L BUN 30 H (7-17) mg/dL Creatinine 2.96 H (0.52-1.04) mg/dL Glucose 296 H (74-99) mg/dL POC Glucose (mg/dL) 305 H (70-110) mg/dL Calcium 8.0 L (8.4-10.2) mg/dL Assessment and Plan Assessment: Severe triple-vessel coronary artery disease, S/P four-vessel off-pump bypass, postop day #17. Acute non-ST segment elevation myocardial infarction. Acute hypoxemic respiratory failure secondary to CHF exacerbation. Possible community-acquired bibasilar pneumonia. Ischemic cardiomyopathy with an ejection fraction of 20 to 25%. History of severe mitral valve regurgitation. Normocytic, normochromic anemia. Acute kidney injury. Non-anion gap metabolic acidosis. COPD, severe, with an FEV1 that is 0.77 L or 27% of predicted. Diabetes mellitus. Hypertension. Hyperlipidemia. History of CVA. History of hypothyroidism. History of fibromyalgia. History of GERD. Previous history of tobacco use. Plan: Plan dated February 19, 2024. The patient continues on oxygen, at 3 L. She continues on Lasix drip at 10 mg an hour. The patient was boarded to have surgery today, but the surgery was canceled. The patient's lung function is very poor, with an FEV1 that is 0.77 L or 27% of predicted. Based on that number alone, the patient is at high increased operative risk. The patient continues on bronchodilators, as well as her other medications. Additional recommendations and suggestions are forthcoming. Labs, x-rays, medications are reviewed. We will continue to follow make recommendations. The bronchodilators that she is currently will be improved. Plan dated February 23, 2024. The patient appears to be much more stable from a respiratory status standpoint. She will have repeat PFTs. Labs, x-rays, medications are reviewed. Earlier spirometry showed an FEV1 that was 0.77 L or 27% of predicted. Labs, x-rays, and medications are all reviewed. We will continue to follow the patient, make recommendations along the way. Prognosis is guarded. She continues on bronchodilators. Plan dated February 24, 2024. The patient had repeat spirometry today. Her lung function are marginally improved, after bronchodilator. Previous FEV1 was .77 L. Today's postbronchodilator FEV1 is 0.83 L. The patient continues on appropriate bronchodilators. The patient's at high increased operative risk, based on her lung function. Having said that, on 2 L, appears relatively comfortable. Her saturations are in the low to mid 90s. Additional recommendations and suggestions are forthcoming. Prognosis is guarded. She apparently is scheduled to have open heart surgery on Monday, next week. Plan dated February 25, 2024. The patient is seen today in room 385. She continues on oxygen at 2 L. Labs, x-rays, and medications are reviewed. Apparently the patient is scheduled to have open heart surgery tomorrow. Her FEV1 is 0.77 L which is 27% of predicted. I repeat spirometry showed an FEV1 that was 0.83 L. Labs, x-rays, and medications are reviewed. We will continue to follow the patient, make recommendations along the way. Prognosis is currently guarded. Plan dated March 14, 2024. The patient has had a long hospitalization, now for 37 days. The patient had recurrent bilateral pleural effusions, with chest tubes in place, up until just a few days ago. Currently, the patient is on room air. She is not receiving any IV fluids. The patient was moved out of the intensive care unit yesterday. She is seen today room 352. Labs, x-rays, and medications are reviewed. We will continue to follow make recommendations along the way. Prognosis is guarded. Time with Patient: Less than 30
[2024-03-14 12:02] LABS: Glucose,Whole Blood 272 mg/dL (70-110)
[2024-03-14 13:34] LABS: Hepatitis B Virus DNA Not detected (Not detected); Hepatitis B Virus DNA, Quant <10 IU/mL (<10); Log HBV IU/mL <1.00 (<1.00)
[2024-03-14 15:49] LABS: Glucose,Whole Blood 279 mg/dL (70-110)
[2024-03-14 16:51] LABS: Glucose,Whole Blood 219 mg/dL (70-110)
[2024-03-14 20:09] LABS: Glucose,Whole Blood 153 mg/dL (70-110)
[2024-03-15 04:48] LABS: Glucose,Whole Blood 154 mg/dL (70-110)
[2024-03-15 06:04] LABS: Glucose,Whole Blood 160 mg/dL (70-110)
--- NOTE | 2024-03-15 08:46 | XR ---
EXAMINATION TYPE: XR chest 2V DATE OF EXAM: 03/15/2024 7:21 AM CLINICAL INDICATION:Female, 58 years old with history of post cardiac surgery; COMPARISON: Chest radiographs from 03/14/2024 TECHNIQUE: XR chest 2V Frontal and lateral views of the chest. FINDINGS: Lungs/Pleura: There is no evidence of pleural effusion, focal consolidation, or pneumothorax. Pulmonary vascularity: Unremarkable. Heart/mediastinum: Cardiomediastinal silhouette is unremarkable. A loop recorder projects over the le ft thorax over the heart. Left atrial appendage occlusion device is present. Musculoskeletal: No acute osseous pathology. Midline sternotomy wires are noted. Other findings: None Lines/Tubes: Right internal jugular central venous catheter with distal tip at the cavoatrial junction. Right-sided PICC line with distal tip at the cavoatrial junction. IMPRESSION: No acute cardiopulmonary disease/process.
--- NOTE | 2024-03-15 09:00 | P.PN ---
Subjective Progress Note Date: 03/15/24 Principal diagnosis: Triple-vessel coronary artery disease, non-STEMI this admission, acute heart failure with reduced ejection fraction, new onset ischemic cardiomyopathy, moderate to severe mitral regurgitation, acute on chronic kidney disease, acute anemia. History of hypertension, hyperlipidemia, hypothyroid, diabetes mellitus, CVA, hepatitis as a child, CKD stage IV, previous tobacco dependence with recent cessation, severe COPD, previous methamphetamine use with recent cessation, family history of coronary artery disease POD #18 Off-pump CABG x 4 with sequential left internal mammary artery to left anterior descending coronary artery and diagonal coronary artery, reverse saphenous vein graft to the posterior descending coronary artery and second obtuse marginal coronary artery, closure of the left atrial appendage with 35mm AtriCure clip, placement of percutaneous right femoral intra-aortic balloon pump, transesophageal echocardiogram performed by anesthesia. Postoperative acute blood loss anemia, expected secondary to hemodilution and preoperative anemia Postoperative paroxysmal atrial fibrillation, a known common occurrence after cardiac surgery, not a complication Acute kidney injury secondary to ATN secondary to cardiorenal syndrome, not a complication as it was expected due to preoperative acute on chronic kidney disease POD #8 ultrasound-guided right common femoral vein access and placement of central venous catheter for dialysi POD #3 ultrasound-guided right internal jugular vein access, placement of 19 cm tunneled dialysis catheter with fluoroscopic assistance under moderate conscious sedation completed by Dr. Barker The patient was seen and examined this morning sitting up in bed on the cardiac stepdown unit in no acute distress. States pain is controlled on current medication regimen, denies shortness of breath. Currently in sinus rhythm, hemodynamically stable, systolic blood pressure occasionally soft but mean arterial pressure remains stable. Patient did not receive 2 doses of hydralazine, any Isordil, & 1 dose of Lopressor yesterday due to soft blood pressures. Currently on room air with oxygen saturation in the mid 90s. Able to achieve 1000 mL on her incentive spirometry. She has been ambulatory with assistance. Chest x-ray, labs reviewed. Patient's only complaint is frustration with remaining in the hospital. Remains with right-sided PICC line and right internal jugular permacath. Awaiting discharge decision, inpatient rehab versus subacute rehab, hopeful for discharge today. No other new concer ns. Objective - Vital Signs Vital signs: Vital Signs Temp 97.9 F 03/15/24 07:49 Pulse 66 03/15/24 07:49 Resp 16 03/15/24 07:49 BP 103/59 03/15/24 07:49 Pulse Ox 93 L 03/15/24 07:49 FiO2 21 03/15/24 07:38 Intake & Output 03/14/24 03/15/24 03/15/24 18:59 06:59 18:59 Intake Total 360 120 Output Total 200 200 Balance 160 -80 Intake: Oral 360 120 Output: Urine 200 200 Other: Voiding Method Bedside Commode Bedside Commode # Voids 0 # Bowel Movements 0 1 ABP, PAP, CO, CI - Last Documented Arterial Blood Pressure 139/47 Pulmonary Artery Pressure 36/20 Cardiac Output 4.2 Cardiac Index 2.3 - Exam CONSTITUTIONAL: Appears comfortable, cooperative, no acute distress RESPIRATORY: Lungs sounds diminished bilaterally. Respirations even, nonlabored. Currently on room air with oxygen saturation 94%. Able to achieve 1000 mL on incentive spirometry. Weak cough. CARDIOVASCULAR: S1, S2 present. Regular rate and rhythm, sinus rhythm on telemetry. Sternum stable. Palpable peripheral pulses bilaterally. Bilateral lower extremity edema present. No calf pain or tenderness noted. Heart hugger in place with patient demonstrating appropriate use. Antiembolism stockings, SCDs present. GASTROINTESTINAL: Abdomen soft, nontender, nondistended. Active bowel sounds present 4 quadrants. Tolerating diet. Positive bowel movement / GENITOURINARY: Continues to void although not always measured. Receiving hemodialysis per nephrology INTEGUMENTARY: Skin is warm and dry with evidence of good perfusion. Anterior chest incision well approximated. Left lower extremity EVH site well approximated without redness or drainage. NEUROLOGIC: Cranial nerves II through XII intact MUSKULOSKELETAL: Able to move all extremities, strength equal bilaterally PSYCHIATRIC: Alert and oriented to person place and time, appropriate affect, intact judgment and insight INVASIVE LINES AND TUBES: Right upper arm PICC present. Right internal jugular permacath present - Allied health notes Allied health notes reviewed: nursing - Labs CBC & Chem 7: 03/14/24 07:31 03/14/24 07:31 Labs: Abnormal Lab Results - Last 24 Hours (Table) 03/14/24 03/14/24 03/14/24 Range/Units 07:31 11:57 15:47 Sodium 128 L (137-145) mmol/L Chloride 97 L (98-107) mmol/L BUN 30 H (7-17) mg/dL Creatinine 2.96 H (0.52-1.04) mg/dL Glucose 296 H (74-99) mg/dL POC Glucose (mg/dL) 272 H 279 H (70-110) mg/dL Calcium 8.0 L (8.4-10.2) mg/dL 03/14/24 03/14/24 03/15/24 Range/Units 16:48 20:06 04:46 Sodium (137-145) mmol/L Chloride (98-107) mmol/L BUN (7-17) mg/dL Creatinine (0.52-1.04) mg/dL Glucose (74-99) mg/dL POC Glucose (mg/dL) 219 H 153 H 154 H (70-110) mg/dL Calcium (8.4-10.2) mg/dL 03/15/24 Range/Units 06:01 Sodium (137-145) mmol/L Chloride (98-107) mmol/L BUN (7-17) mg/dL Creatinine (0.52-1.04) mg/dL Glucose (74-99) mg/dL POC Glucose (mg/dL) 160 H (70-110) mg/dL Calcium (8.4-10.2) mg/dL - Imaging and Cardiology Chest x-ray: report reviewed, image reviewed Assessment and Plan Assessment: Triple-vessel coronary artery disease, non-STEMI this admission, status post four-vessel off-pump CABG Acute heart failure with reduced ejection fraction, 20-25%, 35% on [place] New onset ischemic cardiomyopathy Moderate to severe mitral regurgitation on transthoracic echocardiogram, mild mitral regurgitation on [place] Acute on chronic kidney disease secondary to ATN secondary to cardiorenal syndrome, status post right femoral vein temporary dialysis catheter placement, status post right internal jugular permacath, receiving dialysis per nephrology Acute anemia Hypertension Hyperlipidemia, treated, cholesterol 150, LDL 72.8 Hypothyroid, TSH 1.73 Diabetes mellitus, hemoglobin A1c 7.1% CVA Hepatitis as a child CKD Previous tobacco dependence with recent cessation Severe COPD, preoperative FEV1 27% of predicted Previous methamphetamine use with recent cessation Family history of coronary artery disease with sister having multiple stents Postoperative acute blood loss anemia, expected Postoperative paroxysmal atrial fibrillation, status post ligation of the left atrial appendage, currently sinus Postoperative urinary retention requiring re-initiation of barker, expected given pre-op retention Medical debility Plan: Continue to maximize medical therapy with aspirin, statin, Plavix, beta-alex Continue hydralazine for afterload reduction with hold parameters, Isordil discontinued Continue oral amiodarone for A-fib prophylaxis Encourage incentive spirometry use 10 times every hour while awake. Bronchodilators per pulmonology Increase activity, ambulate as tolerated. PT/OT/cardiac rehab consulted Will monitor daily labs and x-rays. Electrolyte replacement per protocol. Continue Demadex per nephrology Hemodialysis per nephrology, last round was 03/13 with removal of 2.5 L GI/DVT prophylaxis Pain control per current medication regimen. Avoid Toradol due to kidney failure Insulin management per internal medicine Continue to record strict accurate intake and output Daily weights Discharge planning in progress, anticipate discharge to [facility] versus [facility] as soon as we have acceptance and insurance authorization, hopefully today More recommendations to follow
[2024-03-15 09:21] LABS: HCT 28.2 % (34.0-46.0); HGB 8.5 gm/dL (11.4-16.0); Hypochromasia Marked; MCH 29.7 pg (25.0-35.0); MCHC 30.1 g/dL (31.0-37.0); MCV 98.7 fL (80.0-100.0); Mean Platelet Volume 8.3; Platelet Count 162 k/uL (150-450); RBC 2.86 m/uL (3.80-5.40); RDW 14.5 % (11.5-15.5); WBC 5.2 k/uL (3.8-10.6)
[2024-03-15 09:39] LABS: African American GFR (CKD) 14 (>60 ml/min/1.73 sqM); Anion Gap 3 mmol/L; Blood Urea Nitrogen 41 mg/dL (7-17); Calcium 7.8 mg/dL (8.4-10.2); Carbon Dioxide 27 mmol/L (22-30); Chloride 98 mmol/L (98-107); Glucose 206 mg/dL (74-99); Magnesium 1.9 mg/dL (1.6-2.3); Non-African American GFR(CKD) 12 (>60 ml/min/1.73 sqM); Potassium 4.5 mmol/L (3.5-5.1); Sodium 128 mmol/L (137-145)
--- NOTE | 2024-03-15 10:45 | P.PN ---
Subjective Patient is seen in follow-up for acute kidney injury. Started on hemodialysis March 08, 2024. Has permacath. Tolerating dialysis well. Hemodynamically stable. Awaits placement. Vital signs are stable. General: No acute distress. HEENT: Head exam is unremarkable. On nasal cannula. LUNGS: No audible rhonchi or wheezes. HEART: Rate and Rhythm are regular. ABDOMEN: Nontender. EXTREMITITES: 1+ edema. Objective - Vital Signs Vital signs: Vital Signs Temp 97.9 F 03/15/24 07:49 Pulse 66 03/15/24 07:49 Resp 16 03/15/24 07:49 BP 103/59 03/15/24 07:49 Pulse Ox 93 L 03/15/24 07:49 FiO2 21 03/15/24 07:38 Intake & Output 03/14/24 03/15/24 03/15/24 18:59 06:59 18:59 Intake Total 360 120 462 Output Total 200 200 Balance 160 -80 462 Intake: Oral 360 120 462 Output: Urine 200 200 Other: Voiding Method Bedside Commode Bedside Commode # Voids 0 # Bowel Movements 0 1 ABP, PAP, CO, CI - Last Documented Arterial Blood Pressure 139/47 Pulmonary Artery Pressure 36/20 Cardiac Output 4.2 Cardiac Index 2.3 - Labs CBC & Chem 7: 03/15/24 08:47 03/15/24 08:47 Labs: Abnormal Lab Results - Last 24 Hours (Table) 03/14/24 03/14/24 03/14/24 Range/Units 11:57 15:47 16:48 RBC (3.80-5.40) m/uL Hgb (11.4-16.0) gm/dL Hct (34.0-46.0) % MCHC (31.0-37.0) g/dL Sodium (137-145) mmol/L BUN (7-17) mg/dL Creatinine (0.52-1.04) mg/dL Glucose (74-99) mg/dL POC Glucose (mg/dL) 272 H 279 H 219 H (70-110) mg/dL Calcium (8.4-10.2) mg/dL 03/14/24 03/15/24 03/15/24 Range/Units 20:06 04:46 06:01 RBC (3.80-5.40) m/uL Hgb (11.4-16.0) gm/dL Hct (34.0-46.0) % MCHC (31.0-37.0) g/dL Sodium (137-145) mmol/L BUN (7-17) mg/dL Creatinine (0.52-1.04) mg/dL Glucose (74-99) mg/dL POC Glucose (mg/dL) 153 H 154 H 160 H (70-110) mg/dL Calcium (8.4-10.2) mg/dL 03/15/24 03/15/24 Range/Units 08:47 08:47 RBC 2.86 L (3.80-5.40) m/uL Hgb 8.5 L (11.4-16.0) gm/dL Hct 28.2 L (34.0-46.0) % MCHC 30.1 L (31.0-37.0) g/dL Sodium 128 L (137-145) mmol/L BUN 41 H (7-17) mg/dL Creatinine 3.79 H (0.52-1.04) mg/dL Glucose 206 H (74-99) mg/dL POC Glucose (mg/dL) (70-110) mg/dL Calcium 7.8 L (8.4-10.2) mg/dL Assessment and Plan Plan: Assessment: 1. Acute kidney injury secondary to ATN secondary to cardiorenal syndrome. Also from hypotension. Started on hemodialysis March 08, 2024. Has permacath. Creatinine as low as 0.98 dated March 01, 2022. No hydronephrosis noted on kidney ultrasound. Serologies negative. 2. Acute on chronic systolic CHF with ejection fraction of 20 to 25% with moderate to severe mitral regurgitation and mild pulmonary hypertension. 3. Volume overload. Improving with ultrafiltration. 4. Anemia. Iron deficiency noted - s/p IV iron completed 03/02/24. Seen by GI. Status post blood transfusion this admission. Also received IV DDAVP. On Aranesp. 5. Metabolic acidosis secondary to acute kidney injury and IV fluids. Better. 6. Hyponatremia secondary to acute kidney injury. Hypervolemic. Stable. 7. Urinary retention status post Salda[place] catheter placement. On Flomax. Saldaña catheter now removed. Plan: Currently seen while undergoing hemodialysis. She will be maintained on Monday schedule outpatient. Maintain torsemide. Maintain fluid restriction. Avoid nephrotoxins. Blood pressure on the lower side. Has parameters for hydralazine. Continue to monitor renal function and urine output. Phosphorus level 4.5 dated March 13, 2024. Awaits placement.
[2024-03-15 11:29] LABS: Glucose,Whole Blood 161 mg/dL (70-110)
--- NOTE | 2024-03-15 12:41 | P.PN ---
Subjective Progress Note Date: 03/15/24 Principal diagnosis: Coronary artery disease, CHF. The patient is seen today February 12, 2024 in follow-up on the selective care unit. She is currently sitting up in bed. Awake and alert in no acute distress. She is maintaining O2 saturation in the 90s on 3 L nasal cannula. She is afebrile. Hemodynamically stable. Today's chest x-ray reviewed reveals diffuse bilateral infiltrates with small effusion or early congestive heart failure. Hemoglobin 6.7. 1 unit of packed blood cells have been ordered. Platelets 362. White count 6.1. Sodium 131. Potassium 4.2. Bicarb 21. BUN 80. Creatinine 3.89. Glucose 286. She remains on. Antibiotics in the form of ceftriaxone. Remains on a Lasix drip at 5 mg an hour. Currently in a -178 mL balance. The patient is seen today February 13, 2024 in follow-up on the selective care unit. She is awake and alert in no acute distress. Sitting up in bed. Blood and urine cultures revealed no growth. White count 6.2. Hemoglobin 7.4. Platelets 01/05/1978. Sodium 133. Potassium 3.9. Bicarb 21. BUN 83. Creatinine 3.60. Glucose 154. She remains on a Lasix drip currently at 5 mg/h. She remains on a heparin drip. Receiving sodium bicarb tablets. Continued on bronchodilators. Continued on antibiotics in the form of ceftriaxone. She is currently in a negative balance. Voided 1 L today. The patient is seen today February 14, 2024 in follow-up on the selective care unit. She is currently sitting up in bed. Awake and alert in no acute distress. She is maintaining good O2 saturations in the 90s on 3 L/min per nasal cannula. She is afebrile. Hemodynamically stable. Follow-up chest x-ray continues to show diffuse bilateral infiltrate with small effusions. She is status post 1 unit of packed red blood cells this admission. Last hemoglobin 7.7. Sodium 135. Potassium 4.6. Bicarb 20. BUN 87. Creatinine 3.55. Glucose 358. She is continued on bronchodilators. Antibiotics in form of ceftriaxone. She remains on a Lasix drip at 10 mg/h. Receiving sodium bicarb tablets. Currently -688 mL balance. Nephrology is following. The patient is seen today February 15, 2024 in follow-up on the selective care unit. She is currently sitting up in bed awake and alert in no acute distress. She is maintaining O2 saturations in the mid 90s on 2 L/min per nasal cannula. She is afebrile. Hemodynamically stable. White count 6.8. Hemoglobin 8.6. Platelets 438. Sodium 135. Potassium 4.0. Bicarb 21. BUN 84. Creatinine 3.41. Glucose 171. She remains on a Lasix drip at 10 mg/h. Continued on a heparin drip. Plan to -1 L balance. Stress testing today reveals a large area of fixed defect involving all segments of the myocardium suggestive of remote ischemia. Could not exclude a tiny area of stress-induced reversibility within the apex. Reduced wall motion activity with ejection fraction of only 21%. Patient was seen and examined today on 02/16/2024 patient is feeling better today, continues to diurese with a Lasix drip, remains in negative fluid balance, patient underwent cardiac catheterization today and she was found to have severe triple-vessel coronary artery disease, now she is being evaluated by surgery, patient does have severe LV dysfunction, she is definitely high surgical risk, but no absolute contraindication to surgery.Basic metabolic profile is normal BUN is 85 creatinine 3.58 however the patient may require hemodialysis, and she will need nephrology clearance she will also need a bedside spirometry/FEV1 for preoperative pulmonary clearance in the meantime we will continue diuretics/Lasix drip Patient was reevaluated today on 02/17/2024, remains on Lasix drip, remains in ne gative fluid balance, patient is very well aware that she had abnormal cardiac catheterization and now she is being evaluated for possible myocardial revascularization. Patient remains on oxygen at 2 L/min and her O2 sats is 97%, her PFT showed severe obstructive lung disease, however not severe enough to not consider myocardial revascularization if the patient is cleared by other consultants including nephrology and cardiology. Patient has been a smoker over the years, she had at least a [id number] smoking history. Remind you patient had a PFT with chest x-ray still showing evidence of pulmonary edema which will definitely compromise her PFT will likely reflect more restriction than ob structive lung disease. WBC count today is 4.9 hemoglobin 7.7 electrolytes are normal BUN is 85 creatinine 3.59 Patient was reevaluated today on 02/18/2024, remains on Lasix drip, 10 mg/h, remains in constant negative fluid balance, chest x-ray today is definitely showing improvement but nonetheless her pulmonary edema is not completely resolved. Patient was being considered for CABG however the plan is presently on hold because of her overall pulmonary status and possibly the patient could benefit from more optimization of her congestive heart failure. In the meantime she seems to be doing better with the Lasix drip. Patient is also maintained on bronchodilators for her underlying COPD. Progress note dated February 19, 2024. The patient is seen today in room 385. She was scheduled to have bypass grafting today, but the surgery was canceled. She is currently on 3 L of oxygen by nasal cannula. She continues on a Lasix drip at 10 mg an hour. I did have the opportunity to review her lung function. Her FEV1 is 0.77 L or 27% of predicted. Based on that number alone, without having to evaluate the MVV, or the RV/TLC ratio, the patient is at high increased operative risk. Current laboratory data includes a white count 5.1, hemoglobin 8.3, hematocrit 26.6, and a platelet count of 403,000. Sodium 137, potassium 3.5, chlorides 101, CO2 28, BUN 82, and creatinine 3.34. Calcium is 8.2. Nasal screen was positive for non-MRSA staph. Chest x-ray is consistent with mild CHF. The patient is seen today February 20, 2024 in follow-up on the selective care unit. She is currently sitting up in bed. Awake and alert in no acute distress. She is maintaining O2 saturations in the 90s on 3 L/min per nasal cannula. She remains on a Lasix drip at 10 mg/h. Currently net -1 L balance. White count 4.8. Hemoglobin 7.8. Platelets 309. Sodium 132. Potassium 3.7. Bicarb 28. BUN 84. Creatinine 3.31. Glucose 240. She remains on bronchodilators. Heparin for DVT prophylaxis. She has been worked up for possible coronary artery bypass surgery once she recovers from her acute illness. The patient is seen today February 21, 2024 in follow-up on the selective care unit. She is awake and alert in no acute distress. Maintaining good O2 saturations in the 90s on 2 L/min per nasal cannula. She is continued on Lasix drip at 10 mg/h. This x-ray continues to show interstitial pulmonary edema with small left greater than right pleural effusions. She is status post 1 unit of packed red blood cells this admission. Current hemoglobin 8.2. Platelets 301. White count 5.5. Sodium 133. Potassium 3.9. Bicarb 30. BUN 84. Creatinine 3.05. Glucose 108. Remains on bronchodilators. Heparin for DVT prophylaxis. She is currently in a +159 ml balance. The patient is seen today February 22, 2024 in follow-up on the selective care unit. She is resting comfortably in bed. Awake and alert in no acute distress. Denies any chest pain. No worsening shortness of breath, cough or congestion. Maintaining good O2 saturations in the mid 90s on 2 L/min per nasal cannula. She is afebrile. Hemodynamically stable. She is maintained on DuoNeb inhalations, Pulmicort and Perforomist inhalations, Robitussin as needed. Heparin for DVT prophylaxis. She is continued on diuretics. Currently in a - 800 mL balance. Glucose 269. Progress note dated February 23, 2024. The patient is seen today in room 385. She is resting comfortably. She is on 2 L. She is not receiving any IV fluids. Current labs include a white count 4.8, hemoglobin 7.7, hematocrit 25.6, and a platelet count of 294,000. Sodium 131, potassium 4.3, chlorides 97, CO2 30, BUN 82, creatinine 3.32. Glucose is 164. Calcium 7.8, and magnesium 1.9. The nasal swab, on February 15, was positive for non-MRSA, staph. A chest x-ray today shows similar multifocal airspace opacities. Progress note dated February 24, 2024. This is a 58-year-old female seen today in room 385. She is on oxygen at 2 L. She is not receiving any IV fluids. Today, respiratory was kind enough to repeat spirometry. Her FEV1, prebronchodilator, was 0.71 L. Her FEV1 postbronchodilator was 0.83 L. These lung function are very similar to the prio r lung function, that was done a few days ago. Clinically, the patient's respiratory status appears to be stable. She is satting well on 2 L. She is not manifesting any signs or symptoms of respiratory difficulty or distress. Current laboratory data includes a white count 6.1, hemoglobin 8, hematocrit 26.8, and a normal platelet count. Sodium 134, potassium 3.8, chlorides 99, CO2 30, BUN 78, and creatinine 3.24. Glucose Was 195. Calcium 8.3, Magnesium Is 1.9. Chest x-ray is essentially unchanged, and reveals evidence of cardiomegaly. Progress note dated February 25, 2024. 58-year-old female who apparently scheduled to have open heart surgery tomorrow, February 25. The patient is currently on 2 L of oxygen. No IV fluids. She has been relatively stable over the last 2 or 3 days. The patient had repeat spirometry yesterday, which showed a FEV1, postbronchodilator, of 0.83. Which is only slightly better than her previous FEV1. Certainly, she would be at high risk, for general anesthesia. Current laboratory data includes a white count 4.7, hemoglobin 8.1, hematocrit 26.8, and a normal platelet count. Coagulation studies are normal. Sodium 133, potassium 4.3, chloride 99, CO2 32, BUN 77, creatinine 3.20. Glucose is 87. AST is 50. ALT is 40. Albumin is 2.3. Chest x-ray shows cardiomegaly, with the persistent diffuse interstitial changes. Patient was reevaluated today on 03/10/2024, remains in the ICU, remains on room air, patient is now postoperative day #13 off pump CABG x 4 with sequential left internal mammary artery to left anterior descending coronary artery and diagonal coronary artery, reverse saphenous vein graft's to the posterior descending coronary artery and second obtuse marginal coronary artery, closure of the left atrial appendage with 35mm AtriCure clip patient remains in the ICU, doing fairly well, however continues to have bilateral pleural chest tubes in place, and significant amount of drainage noted in the last 24 hours and both tubes. 5 00 mL of drainage from the right-sided chest tube, and another 500 from the left-sided chest tube over the last 24 hours patient is not scheduled to undergo hemodialysis today. But she did have dialysis yesterday. Had 3 L removed yesterday. Clinically she is doing well, but considering her LV dysfunction her overall prognosis remains extremely poor and guarded. At this point no plans to remove any of the chest tubes considering her significant amount of drainage in the last 24 hours chest x-ray is reassuring there is evidence of tiny small biapical pneumothoraces. No air leak noted.WBC is 5.2 hemoglobin 8.7 electrolytes are normal BUN is 52 creatinine 3.54 The patient is seen today March 11, 2024 in follow-up in the intensive care unit. Postoperative day #14 following coronary bypass surgery. She is currently awake and alert in no acute distress. Sitting up in bed. She is maintaining O2 saturations in the 90s on room air. No IV fluids. She is to receive hemodialysis today with a goal of 2 L to be removed. Her bilateral chest tubes remain in place. The left chest tube drained another 200 mL of serous drainage while the right chest tube drained another 230 mL overnight. Chest x-ray reveals postsurgical changes with mild pulmonary edema. No significant change. Small left pneumothorax. She is status post 2 units of packed red blood cells this admission. Current hemoglobin 8.3. White count 5.3. Platelets 253. Sodium 130. Potassium 4.5. Bicarb 26. BUN 59. Creatinine 4.0. Glucose 189. She remains on DuoNeb ventilations, Symbicort. Working well with the incentive spirometer. Heparin for DVT prophylaxis. Remains on IV Bumex. Currently in a -1.2 L balance The patient is seen today March 12, 2024 in follow-up in the intensive care unit. Postoperative day #15. She is currently resting in bed. Awake and alert in no acute distress. She is maintaining good O2 saturations in the 90s on room air. The plan is for the right-sided chest tube to be removed today and possibly the left-sided 1 to be removed tomorrow. She is going for permacath today. She received hemodialysis yesterday with 2 L removed. Receiving hemodialysis again today with a goal of 2 L as well. Chest x-ray reveals surgical changes with mild pulmonary edema. Small left-sided pneumothorax. She has received 2 units of packed red blood cells this admission. Current hemoglobin 8.4. Platelets 219. White count 5.9. Sodium 130. Potassium 4.6. Bicarb 26. BUN 46. Crea tinine 3.31. Glucose 180. She remains on bronchodilators. Heparin for DVT prophylaxis. Transitioned to oral Demadex, currently in a -1.6 L balance. The patient is seen today March 13, 2024 in follow-up in the intensive care unit. Postoperative day #16. She is awake and alert in no acute distress. Resting in bed. Both of her chest tubes have been removed. Chest x-ray reveals a trace right and small left pneumothorax. No evidence of pleural effusion or focal consolidation. White count 5.8. Hemoglobin 8.7. Platelets 181. Sodium 128. Potassium 4.9. Bicarb 23. BUN 37. Creatinine 3.07. Glucose 262. She remains on DuoNeb ventilations, Symbicort. Heparin for DVT prophylaxis. Progress note dated March 14, 2024. The patient is seen today in room 352. She was in the intensive care unit yesterday. She was finally moved out. Today is postoperative day #17. Currently, the patient is on room air. She is not receiving any IV fluids. Both sided chest tubes have been removed. Current labs include a white count 6.2, hemoglobin 8.5, hematocrit 28.6, and a normal platelet count. Sodium 128, potassium 4, chlorides 97, CO2 27, BUN 30, creatinine 2.96. Glucose is 296. Calcium is 8. Chest x-ray shows a small left-sided pneumothorax. No evidence of right pneumothorax. Progress note dated March 15, 2024. The patient is seen today in room 352. The patient is having dialysis, with a goal of removal of 2.5 L of fluid. Her chest x-ray looks excellent. She is on room air. She is not receiving any IV fluids. The patient is feeling better. Current labs, white count 5.2, hemoglobin 8.5, hematocrit 28.2, and a normal platelet count. Sodium 128, potassium 4.5, chlorides 98, CO2 27, BUN 41, creatinine 3.79. Glucose 161. Calcium 7.8. Chest x-ray shows no significant acute cardiopulmonary disease. Objective - Vital Signs Vital signs: Vital Signs Temp 97.9 F 03/15/24 07:49 Pulse 65 03/15/24 11:07 Resp 16 03/15/24 11:07 BP 118/54 03/15/24 11:07 Pulse Ox 97 03/15/24 11:07 FiO2 21 03/15/24 07:38 Intake & Output 03/14/24 03/15/24 03/15/24 18:59 06:59 18:59 Intake Total 360 120 462 Output Total 200 200 Balance 160 -80 462 Intake: Oral 360 120 462 Output: Urine 200 200 Other: Voiding Method Bedside Commode Bedside Commode Bedside Commode # Voids 0 # Bowel Movements 0 1 ABP, PAP, CO, CI - Last Documented Arterial Blood Pressure 139/47 Pulmonary Artery Pressure 36/20 Cardiac Output 4.2 Cardiac Index 2.3 - Exam No acute distress, oriented 3. The patient is currently on room air. HEENT examination is grossly unremarkable. Mucous membranes are moist. No oral lesions. Neck supple. Full range of motion. No adenopathy thyromegaly or neck vein distention. Cardiovascular examination reveals regular rhythm rate. S1-S2 normal. No S3 or S4. No discernible murmur noted. Heart rate 65 bpm. Lungs reveal scattered rhonchi and crackles. Breath sounds are otherwise equal. No wheezes. Saturation is 97 %. Abdomen soft bowel sounds are heard. No masses or tenderness. Extremities are intact. No cyanosis clubbing or edema. Skin is without rash or lesion. Neurologic examination is brief but nonfocal. - Labs CBC & Chem 7: 03/15/24 08:47 03/15/24 08:47 Labs: Abnormal Lab Results - Last 24 Hours (Table) 03/14/24 03/14/24 03/14/24 Range/Units 15:47 16:48 20:06 RBC (3.80-5.40) m/uL Hgb (11.4-16.0) gm/dL Hct (34.0-46.0) % MCHC (31.0-37.0) g/dL Sodium (137-145) mmol/L BUN (7-17) mg/dL Creatinine (0.52-1.04) mg/dL Glucose (74-99) mg/dL POC Glucose (mg/dL) 279 H 219 H 153 H (70-110) mg/dL Calcium (8.4-10.2) mg/dL 03/15/24 03/15/24 03/15/24 Range/Units 04:46 06:01 08:47 RBC 2.86 L (3.80-5.40) m/uL Hgb 8.5 L (11.4-16.0) gm/dL Hct 28.2 L (34.0-46.0) % MCHC 30.1 L (31.0-37.0) g/dL Sodium (137-145) mmol/L BUN (7-17) mg/dL Creatinine (0.52-1.04) mg/dL Glucose (74-99) mg/dL POC Glucose (mg/dL) 154 H 160 H (70-110) mg/dL Calcium (8.4-10.2) mg/dL 03/15/24 03/15/24 Range/Units 08:47 11:24 RBC (3.80-5.40) m/uL Hgb (11.4-16.0) gm/dL Hct (34.0-46.0) % MCHC (31.0-37.0) g/dL Sodium 128 L (137-145) mmol/L BUN 41 H (7-17) mg/dL Creatinine 3.79 H (0.52-1.04) mg/dL Glucose 206 H (74-99) mg/dL POC Glucose (mg/dL) 161 H (70-110) mg/dL Calcium 7.8 L (8.4-10.2) mg/dL Assessment and Plan Assessment: Severe triple-vessel coronary artery disease, S/P four-vessel off-pump bypass, postop day #18. Acute non-ST segment elevation myocardial infarction. Acute hypoxemic respiratory failure secondary to CHF exacerbation. Possible community-acquired bibasilar pneumonia. Ischemic cardiomyopathy with an ejection fraction of 20 to 25%. History of severe mitral valve regurgitation. Normocytic, normochromic anemia. Acute kidney injury. Non-anion gap metabolic acidosis. COPD, severe, with an FEV1 that is 0.77 L or 27% of predicted. Diabetes mellitus. Hypertension. Hyperlipidemia. History of CVA. History of hypothyroidism. History of fibromyalgia. History of GERD. Previous history of tobacco use. Plan: Plan dated February 19, 2024. The patient continues on oxygen, at 3 L. She continues on Lasix drip at 10 mg an hour. The patient was boarded to have surgery today, but the surgery was canceled. The patient's lung function is very poor, with an FEV1 that is 0.77 L or 27% of predicted. Based on that number alone, the patient is at high in creased operative risk. The patient continues on bronchodilators, as well as her other medications. Additional recommendations and suggestions are forthcoming. Labs, x-rays, medications are reviewed. We will continue to follow make recommendations. The bronchodilators that she is currently will be improved. Plan dated February 23, 2024. The patient appears to be much more stable from a respiratory status standpoint. She will have repeat PFTs. Labs, x-rays, medications are reviewed. Earlier spirometry showed an FEV1 that was 0.77 L or 27% of predicted. Labs, x-rays, and medications are all reviewed. We will continue to follow the patient, make recommendations along the way. Prognosis is guarded. She continues on bronchodilators. Plan dated February 24, 2024. The patient had repeat spirometry today. Her lung function are marginally improved, after bronchodilator. Previous FEV1 was .77 L. Today's postbronchodilator FEV1 is 0.83 L. The patient continues on appropriate bronchodilators. The patient's at high increased operative risk, based on her lung function. Having said that, on 2 L, appears relatively comfortable. Her saturations are in the low to mid 90s. Additional recommendations and suggestions are forthcoming. Prognosis is guarded. She apparently is scheduled to have open heart surgery on Monday, next week. Plan dated February 25, 2024. The patient is seen today in room 385. She continues on oxygen at 2 L. Labs, x-rays, and medications are reviewed. Apparently the patient is scheduled to have open heart surgery tomorrow. Her FEV1 is 0.77 L which is 27% of predicted. I repeat spirometry showed an FEV1 that was 0.83 L. Labs, x-rays, and medications are reviewed. We will continue to follow the patient, make recommendations along the way. Prognosis is currently guarded. Plan dated March 14, 2024. The patient has had a long hospitalization, now for 37 days. The patient had recurrent bilateral pleural effusions, with chest tubes in place, up until just a few days ago. Currently, the patient is on room air. She is not receiving any IV fluids. The patient was moved out of the intensive care unit yesterday. She is seen today room 352. Labs, x-rays, and medications are reviewed. We will continue to follow make recommendations along the way. Prognosis is guarded. Plan dated March 15, 2024. The patient is seen today in room 352. The patient continues to show daily improvement. She is on room air. Saturations are 97%. Labs, and x-rays, I reviewed. The patient is having hemodialysis today. The goal is to remove 2.5 L of fluid. The patient's chest x-ray is stable. No significant pleural effusions are noted. We will continue to follow make recommendations along the way. Time with Patient: Less than 30
[2024-03-15 15:05] LABS: Glucose,Whole Blood 65 mg/dL (70-110)
[2024-03-15 15:23] LABS: Glucose,Whole Blood 86 mg/dL (70-110)
[2024-03-15 16:19] LABS: Glucose,Whole Blood 100 mg/dL (70-110)
[2024-03-15 20:35] LABS: Glucose,Whole Blood 293 mg/dL (70-110)
--- NOTE | 2024-03-15 22:41 | P.PN ---
Subjective Progress Note Date: 03/15/24 58 years old female with past medical history of multiple medical problems as below She has been incarcerated for 52 days, there is officer at bedside. Patient presents because of shortness of breath and exertional dyspnea has for the last 2 days, she states she hears herself wheezing when she lies down. Currently she is breathing quietly. She is complaining for mild chest pain on the left side, nonradiating nonspecific, feels much better now and very mild. She follow-up with her model technician Dr. Donal Herrera and flavorer Dr. Babb who examined her about 2 months ago where she has some mild ulcer In the bottom of her right total This morning patient has low-grade fever 100.2 She is also mildly tachypneic around 22 She is saturating 93% on 2 L oxygen via nasal cannula Labs reviewed showing hemoglobin of 7.7, rest of CBC is unremarkable BMP liver enzymes not elevated. INR 0.9. Lactic 0.9 proBNP is elevated 25 100 EKG showing sinus rhythm at [address]-T changes, no left bundle branch block Objective - Vital Signs Vital signs: Vital Signs Temp 97.9 F 03/15/24 07:49 Pulse 65 03/15/24 11:07 Resp 16 03/15/24 11:07 BP 118/54 03/15/24 11:07 Pulse Ox 97 03/15/24 11:07 FiO2 21 03/15/24 07:38 Intake & Output 03/14/24 03/15/24 03/15/24 18:59 06:59 18:59 Intake Total 360 120 462 Output Total 200 200 Balance 160 -80 462 Intake: Oral 360 120 462 Output: Urine 200 200 Other: Voiding Method Bedside Commode Bedside Commode Bedside Commode # Voids 0 # Bowel Movements 0 1 ABP, PAP, CO, CI - Last Documented Arterial Blood Pressure 139/47 Pulmonary Artery Pressure 36/20 Cardiac Output 4.2 Cardiac Index 2.3 - Exam GENERAL: The patient is alert and oriented x3, not in any acute distress. Ill appearance, pale appearing HEENT: Pupils are round and equally reacting to light. EOMI. Normocephalic, atraumatic. No pharyngeal erythema. No thyromegaly. CARDIOVASCULAR: S1 and S2 present. No murmurs, rubs, or gallops. PULMONARY: Decreased breath sounds bilaterally ABDOMEN: Soft, nontender, nondistended, normoactive bowel sounds. No palpable organomegaly. Saldaña catheter in place MUSCULOSKELETAL: No joint swelling or deformity. EXTREMITIES: No cyanosis, clubbing, 1+ bilateral pitting leg edema. NEUROLOGICAL: Gross neurological examination did not reveal any focal deficits. - Labs CBC & Chem 7: 03/15/24 08:47 03/15/24 08:47 Labs: Abnormal Lab Results - Last 24 Hours (Table) 03/14/24 03/14/24 03/14/24 Range/Units 11:57 15:47 16:48 RBC (3.80-5.40) m/uL Hgb (11.4-16.0) gm/dL Hct (34.0-46.0) % MCHC (31.0-37.0) g/dL Sodium (137-145) mmol/L BUN (7-17) mg/dL Creatinine (0.52-1.04) mg/dL Glucose (74-99) mg/dL POC Glucose (mg/dL) 272 H 279 H 219 H (70-110) mg/dL Calcium (8.4-10.2) mg/dL 03/14/24 03/15/24 03/15/24 Range/Units 20:06 04:46 06:01 RBC (3.80-5.40) m/uL Hgb (11.4-16.0) gm/dL Hct (34.0-46.0) % MCHC (31.0-37.0) g/dL Sodium (137-145) mmol/L BUN (7-17) mg/dL Creatinine (0.52-1.04) mg/dL Glucose (74-99) mg/dL POC Glucose (mg/dL) 153 H 154 H 160 H (70-110) mg/dL Calcium (8.4-10.2) mg/dL 03/15/24 03/15/24 03/15/24 Range/Units 08:47 08:47 11:24 RBC 2.86 L (3.80-5.40) m/uL Hgb 8.5 L (11.4-16.0) gm/dL Hct 28.2 L (34.0-46.0) % MCHC 30.1 L (31.0-37.0) g/dL Sodium 128 L (137-145) mmol/L BUN 41 H (7-17) mg/dL Creatinine 3.79 H (0.52-1.04) mg/dL Glucose 206 H (74-99) mg/dL POC Glucose (mg/dL) 161 H (70-110) mg/dL Calcium 7.8 L (8.4-10.2) mg/dL Assessment and Plan Assessment: Acute congestive heart failure with systolic dysfunction ejection fraction of 20-25 % New onset cardiomyopathy. Ischemic versus nonischemic. Acute hypoxemic respiratory failure multifactorial CHF, multifocal pneumonia. Multifocal pneumonia Non-ST elevated OK Acute kidney injury due to ATN secondary to cardiorenal. Patient is nonoliguric Acute on chronic anemia of chronic disease Acute urinary tract infection, urine culture showing skin or genital kwesi Chronic kidney disease stage II with acute kidney injury Urinary retention status post Saldaña catheter placement Diabetes mellitus type 2 Plan: In regards to hypoxemic respiratory failure, CHF exacerbation, continue patient on IV Lasix drip, continue to monitor intake and output continue with fluid restriction. Regards to multifocal pneumonia procalcitonin elevated continue. Completed ceftriaxone for 5 days on 02/13/2024 In regards to elevated troponin, continue current management medically, not a candidate for cardiac catheterization secondary to renal failure and anemia. Lexiscan stress test was done today.. In regards to diabetes mellitus Accu-Cheks ACHS continue patient on correctional insulin, NovoLog and Levemir In regards to anemia, continue to monitor H&H transfuse if hemoglobin less than 7, 1 unit of packed RBC ordered, fecal occult blood test ordered. Continue to titrate oxygen to room air.
[2024-03-16 06:03] LABS: Glucose,Whole Blood 166 mg/dL (70-110)
--- NOTE | 2024-03-16 08:49 | P.PN ---
Subjective Progress Note Date: 03/16/24 Principal diagnosis: Triple-vessel coronary artery disease, non-STEMI this admission, acute heart failure with reduced ejection fraction, new onset ischemic cardiomyopathy, moderate to severe mitral regurgitation, acute on chronic kidney disease, acute anemia. History of hypertension, hyperlipidemia, hypothyroid, diabetes mellitus, CVA, hepatitis as a child, CKD stage IV, previous tobacco dependence with recent cessation, severe COPD, previous methamphetamine use with recent cessation, family history of coronary artery disease POD #19 Off-pump CABG x 4 with sequential left internal mammary artery to left anterior descending coronary artery and diagonal coronary artery, reverse saphenous vein graft to the posterior descending coronary artery and second obtuse marginal coronary artery, closure of the left atrial appendage with 35mm AtriCure clip, placement of percutaneous right femoral intra-aortic balloon pump, transesophageal echocardiogram performed by anesthesia. Postoperative acute blood loss anemia, expected secondary to hemodilution and preoperative anemia Postoperative paroxysmal atrial fibrillation, a known common occurrence after cardiac surgery, not a complication Acute kidney injury secondary to ATN secondary to cardiorenal syndrome, not a complication as it was expected due to preoperative acute on chronic kidney disease POD #9 ultrasound-guided right common femoral vein access and placement of central venous catheter for dialysi POD #4 ultrasound-guided right internal jugular vein access, placement of 19 cm tunneled dialysis catheter with fluoroscopic assistance under moderate conscious sedation completed by Dr. Barker The patient was seen and examined this morning sitting up in recliner on the cardiac stepdown unit in no acute distress. States pain is controlled on current medication regimen, denies shortness of breath. States today she feels the best she has felt the whole time she has been here, however did have some dizziness yesterday with low blood pressures. Currently in sinus rhythm, hemodynamically stable, systolic blood pressure were soft yesterday afternoon and last evening, has not received all doses of hydralazine due to hold parameters. She did receive dialysis yesterday. Currently on room air with oxygen saturation in the mid 90s. Able to achieve 1000 mL on her incentive spirometry. She has been am bulatory with assistance. Chest x-ray, labs reviewed. Patient's only complaint is frustration with remaining in the hospital, states she feels ready to go to rehab. Remains with right-sided PICC line and right internal jugular permacath. Awaiting insurance authorization for subacute rehab. No other new concerns. Objective - Vital Signs Vital signs: Vital Signs Temp 98.1 F 03/16/24 08:10 Pulse 63 03/16/24 08:10 Resp 17 03/16/24 08:10 BP 106/63 03/16/24 08:10 Pulse Ox 94 L 03/16/24 08:10 FiO2 21 03/15/24 07:38 Intake & Output 03/15/24 03/16/24 03/16/24 18:59 06:59 18:59 Intake Total 1438 540 Output Total 3200 Balance -1762 540 Weight 86 kg Intake: Oral 938 540 Hemodialysis 500 Output: Urine 200 Hemodialysis 3000 Other: Voiding Method Bedside Commode Bedside Commode # Voids 1 0 # Bowel Movements 1 ABP, PAP, CO, CI - Last Documented Arterial Blood Pressure 139/47 Pulmonary Artery Pressure 36/20 Cardiac Output 4.2 Cardiac Index 2.3 - Exam CONSTITUTIONAL: Appears comfortable, cooperative, no acute distress RESPIRATORY: Lungs sounds diminished bilaterally. Respirations even, nonlabored. Currently on room air with oxygen saturation 94%. Able to achieve 1000 mL on incentive spirometry. Weak cough. CARDIOVASCULAR: S1, S2 present. Regular rate and rhythm, sinus rhythm on telemetry. Sternum stable. Palpable peripheral pulses bilaterally. Bilateral lower extremity edema present. No calf pain or tenderness noted. Heart hugger in place with patient demonstrating appropriate use. Antiembolism stockings, SCDs present. GASTROINTESTINAL: Abdomen soft, nontender, nondistended. Active bowel sounds present 4 quadrants. Tolerating diet. Positive bowel movement /7 GENITOURINARY: Continues to void although not always measured. Receiving hemodialysis per nephrology INTEGUMENTARY: Skin is warm and dry with evidence of good perfusion. Anterior chest incision well approximated. Left lower extremity EVH site well approximated without redness or drainage. NEUROLOGIC: Cranial nerves II through XII intact MUSKULOSKELETAL: Able to move all extremities, strength equal bilaterally PSYCHIATRIC: Alert and oriented to person place and time, appropriate affect, intact judgment and insight INVASIVE LINES AND TUBES: Right upper arm PICC present. Right internal jugular permacath present - Allied health notes Allied health notes reviewed: nursing - Labs CBC & Chem 7: 03/15/24 08:47 03/15/24 08:47 Labs: Abnormal Lab Results - Last 24 Hours (Table) 03/15/24 03/15/24 03/15/24 Range/Units 08:47 08:47 11:24 RBC 2.86 L (3.80-5.40) m/uL Hgb 8.5 L (11.4-16.0) gm/dL Hct 28.2 L (34.0-46.0) % MCHC 30.1 L (31.0-37.0) g/dL Sodium 128 L (137-145) mmol/L BUN 41 H (7-17) mg/dL Creatinine 3.79 H (0.52-1.04) mg/dL Glucose 206 H (74-99) mg/dL POC Glucose (mg/dL) 161 H (70-110) mg/dL Calcium 7.8 L (8.4-10.2) mg/dL 03/15/24 03/15/24 03/16/24 Range/Units 15:04 20:33 06:01 RBC (3.80-5.40) m/uL Hgb (11.4-16.0) gm/dL Hct (34.0-46.0) % MCHC (31.0-37.0) g/dL Sodium (137-145) mmol/L BUN (7-17) mg/dL Creatinine (0.52-1.04) mg/dL Glucose (74-99) mg/dL POC Glucose (mg/dL) 65 L 293 H 166 H (70-110) mg/dL Calcium (8.4-10.2) mg/dL Assessment and Plan Assessment: Triple-vessel coronary artery disease, non-STEMI this admission, status post four-vessel off-pump CABG Acute heart failure with reduced ejection fraction, 20-25%, 35% on [place] New onset ischemic cardiomyopathy Moderate to severe mitral regurgitation on transthoracic echocardiogram, mild mitral regurgitation on [place] Acute on chronic kidney disease secondary to ATN secondary to cardiorenal syndrome, status post right femoral vein temporary dialysis catheter placement, status post right internal jugular permacath, receiving dialysis per nephrology Acute anemia Hypertension Hyperlipidemia, treated, cholesterol 150, LDL 72.8 Hypothyroid, TSH 1.73 Diabetes mellitus, hemoglobin A1c 7.1% CVA Hepatitis as a child CKD Previous tobacco dependence with recent cessation Severe COPD, preoperative FEV1 27% of predicted Previous methamphetamine use with recent cessation Family history of coronary artery disease with sister having multiple stents Postoperative acute blood loss anemia, expected Postoperative paroxysmal atrial fibrillation, status post ligation of the left atrial appendage, currently sinus Postoperative urinary retention requiring re-initiation of barker, expected given pre-op retention Medical debility Plan: Continue to maximize medical therapy with aspirin, statin, Plavix, beta-alex Continue hydralazine for afterload reduction with hold parameters Continue oral amiodarone for A-fib prophylaxis, protocol ends amiodarone on March 19, 2024 Encourage incentive spirometry use 10 times every hour while awake. Bronchodilators per pulmonology Increase activity, ambulate as tolerated. PT/OT/cardiac rehab consulted Will monitor daily labs and x-rays. Electrolyte replacement per protocol. Continue Demadex per nephrology Hemodialysis per nephrology, last round was 03/15 with removal of 3 L GI/DVT prophylaxis Pain control per current medication regimen. Avoid Toradol due to kidney failure Insulin management per internal medicine Continue to record strict accurate intake and output Daily weights Discharge planning in progress, anticipate discharge to [facility] as soon as we have acceptance and insurance authorization More recommendations to follow
[2024-03-16 09:52] LABS: Basophils % (A) 0 %; Eosinophils # (A) 0.8 k/uL (0-0.7); Eosinophils % (A) 14 %; HCT 29.7 % (34.0-46.0); HGB 9.2 gm/dL (11.4-16.0); Hypochromasia Marked; Lymphocytes # (A) 0.8 k/uL (1.0-4.8); Lymphocytes % (A) 14 %; MCH 30.5 pg (25.0-35.0); MCHC 30.9 g/dL (31.0-37.0); MCV 98.8 fL (80.0-100.0); Macrocytosis Slight; Mean Platelet Volume 8.9; Monocytes # (A) 0.5 k/uL (0-1.0); Monocytes % (A) 9 %; Neutrophils # (A) 3.3 k/uL (1.3-7.7); Neutrophils % (A) 61 %; Platelet Count 151 k/uL (150-450); WBC 5.5 k/uL (3.8-10.6)
[2024-03-16 10:27] LABS: African American GFR (CKD) 21 (>60 ml/min/1.73 sqM); Anion Gap 5 mmol/L; Blood Urea Nitrogen 28 mg/dL (7-17); Calcium 7.7 mg/dL (8.4-10.2); Carbon Dioxide 26 mmol/L (22-30); Chloride 99 mmol/L (98-107); Glucose 190 mg/dL (74-99); Non-African American GFR(CKD) 18 (>60 ml/min/1.73 sqM); Potassium 4.1 mmol/L (3.5-5.1); Sodium 130 mmol/L (137-145)
--- NOTE | 2024-03-16 10:28 | P.PN ---
Subjective Patient is seen in follow-up for acute kidney injury. Started on hemodialysis March 08, 2024. Has permacath. No problems with dialysis yesterday. Hemodynamically stable. Awaits placement. Overall feels well. Vital signs are stable. General: No acute distress. HEENT: Head exam is unremarkable. On nasal cannula. LUNGS: No audible rhonchi or wheezes. HEART: Rate and Rhythm are regular. ABDOMEN: Nontender. EXTREMITITES: 1+ edema. Objective - Vital Signs Vital signs: Vital Signs Temp 98.1 F 03/16/24 08:10 Pulse 63 03/16/24 08:10 Resp 17 03/16/24 08:10 BP 106/63 03/16/24 08:10 Pulse Ox 94 L 03/16/24 08:10 FiO2 21 03/15/24 07:38 Intake & Output 03/15/24 03/16/24 03/16/24 18:59 06:59 18:59 Intake Total 1438 540 780 Output Total 3200 Balance -1762 540 780 Weight 86 kg Intake: Oral 938 540 780 Hemodialysis 500 Output: Urine 200 Hemodialysis 3000 Other: Voiding Method Bedside Commode Bedside Commode # Voids 1 0 # Bowel Movements 1 ABP, PAP, CO, CI - Last Documented Arterial Blood Pressure 139/47 Pulmonary Artery Pressure 36/20 Cardiac Output 4.2 Cardiac Index 2.3 - Labs CBC & Chem 7: 03/16/24 08:20 03/15/24 08:47 Labs: Abnormal Lab Results - Last 24 Hours (Table) 03/15/24 03/15/24 03/15/24 Range/Units 11:24 15:04 20:33 RBC (3.80-5.40) m/uL Hgb (11.4-16.0) gm/dL Hct (34.0-46.0) % MCHC (31.0-37.0) g/dL Lymphocytes # (1.0-4.8) k/uL Eosinophils # (0-0.7) k/uL POC Glucose (mg/dL) 161 H 65 L 293 H (70-110) mg/dL 03/16/24 03/16/24 Range/Units 06:01 08:20 RBC 3.00 L (3.80-5.40) m/uL Hgb 9.2 L (11.4-16.0) gm/dL Hct 29.7 L (34.0-46.0) % MCHC 30.9 L (31.0-37.0) g/dL Lymphocytes # 0.8 L (1.0-4.8) k/uL Eosinophils # 0.8 H (0-0.7) k/uL POC Glucose (mg/dL) 166 H (70-110) mg/dL Assessment and Plan Plan: Assessment: 1. Acute kidney injury secondary to ATN secondary to cardiorenal syndrome. Also from hypotension. Started on hemodialysis March 08, 2024. Has permacath. Creatinine as low as 0.98 dated March 01, 2022. No hydronephrosis noted on kidney ultrasound. Serologies negative. 2. Acute on chronic systolic CHF with ejection fraction of 20 to 25% with moderate to severe mitral regurgitation and mild pulmonary hypertension. 3. Volume overload. Improving with ultrafiltration. 4. Anemia. Iron deficiency noted - s/p IV iron completed 03/02/24. Seen by GI. Status post blood transfusion this admission. Also received IV DDAVP. On Aranesp. 5. Metabolic acidosis secondary to acute kidney injury and IV fluids. Better. 6. Hyponatremia secondary to acute kidney injury. Hypervolemic. Stable. 7. Urinary retention status post Saldaña catheter placement. On Flomax. Saldaña catheter now removed. Plan: Hemodialysis Monday. She will be maintained on Monday schedule outpatient. Maintain torsemide. Maintain fluid restriction. Avoid nephrotoxins. Blood pressure on the lower side. Has parameters for hydralazine. Continue to monitor renal function and urine output. Phosphorus level 4.5 dated March 13, 2024. Awaits placement.
[2024-03-16 11:29] LABS: Glucose,Whole Blood 341 mg/dL (70-110)
--- NOTE | 2024-03-16 12:37 | P.PN ---
Subjective Progress Note Date: 03/16/24 Principal diagnosis: Coronary artery disease, CHF. The patient is seen today February 12, 2024 in follow-up on the selective care unit. She is currently sitting up in bed. Awake and alert in no acute distress. She is maintaining O2 saturation in the 90s on 3 L nasal cannula. She is afebrile. Hemodynamically stable. Today's chest x-ray reviewed reveals diffuse bilateral infiltrates with small effusion or early congestive heart failure. Hemoglobin 6.7. 1 unit of packed blood cells have been ordered. Platelets 362. White count 6.1. Sodium 131. Potassium 4.2. Bicarb 21. BUN 80. Creatinine 3.89. Glucose 286. She remains on. Antibiotics in the form of ceftriaxone. Remains on a Lasix drip at 5 mg an hour. Currently in a -178 mL balance. The patient is seen today February 13, 2024 in follow-up on the selective care unit. She is awake and alert in no acute distress. Sitting up in bed. Blood and urine cultures revealed no growth. White count 6.2. Hemoglobin 7.4. Platelets 01/05/1978. Sodium 133. Potassium 3.9. Bicarb 21. BUN 83. Creatinine 3.60. Glucose 154. She remains on a Lasix drip currently at 5 mg/h. She remains on a heparin drip. Receiving sodium bicarb tablets. Continued on bronchodilators. Continued on antibiotics in the form of ceftriaxone. She is currently in a negative balance. Voided 1 L today. The patient is seen today February 14, 2024 in follow-up on the selective care unit. She is currently sitting up in bed. Awake and alert in no acute distress. She is maintaining good O2 saturations in the 90s on 3 L/min per nasal cannula. She is afebrile. Hemodynamically stable. Follow-up chest x-ray continues to show diffuse bilateral infiltrate with small effusions. She is status post 1 unit of packed red blood cells this admission. Last hemoglobin 7.7. Sodium 135. Potassium 4.6. Bicarb 20. BUN 87. Creatinine 3.55. Glucose 358. She is continued on bronchodilators. Antibiotics in form of ceftriaxone. She remains on a Lasix drip at 10 mg/h. Receiving sodium bicarb tablets. Currently -688 mL balance. Nephrology is following. The patient is seen today February 15, 2024 in follow-up on the selective care unit. She is currently sitting up in bed awake and alert in no acute distress. She is maintaining O2 saturations in the mid 90s on 2 L/min per nasal cannula. She is afebrile. Hemodynamically stable. White count 6.8. Hemoglobin 8.6. Platelets 438. Sodium 135. Potassium 4.0. Bicarb 21. BUN 84. Creatinine 3.41. Glucose 171. She remains on a Lasix drip at 10 mg/h. Continued on a heparin drip. Plan to -1 L balance. Stress testing today reveals a large area of fixed defect involving all segments of the myocardium suggestive of remote ischemia. Could not exclude a tiny area of stress-induced reversibility within the apex. Reduced wall motion activity with ejection fraction of only 21%. Patient was seen and examined today on 02/16/2024 patient is feeling better today, continues to diurese with a Lasix drip, remains in negative fluid balance, patient underwent cardiac catheterization today and she was found to have severe triple-vessel coronary artery disease, now she is being evaluated by surgery, patient does have severe LV dysfunction, she is definitely high surgical risk, but no absolute contraindication to surgery.Basic metabolic profile is normal BUN is 85 creatinine 3.58 however the patient may require hemodialysis, and she will need nephrology clearance she will also need a bedside spirometry/FEV1 for preoperative pulmonary clearance in the meantime we will continue diuretics/Lasix drip Patient was reevaluated today on 02/17/2024, remains on Lasix drip, remains in ne gative fluid balance, patient is very well aware that she had abnormal cardiac catheterization and now she is being evaluated for possible myocardial revascularization. Patient remains on oxygen at 2 L/min and her O2 sats is 97%, her PFT showed severe obstructive lung disease, however not severe enough to not consider myocardial revascularization if the patient is cleared by other consultants including nephrology and cardiology. Patient has been a smoker over the years, she had at least a [id number] smoking history. Remind you patient had a PFT with chest x-ray still showing evidence of pulmonary edema which will definitely compromise her PFT will likely reflect more restriction than ob structive lung disease. WBC count today is 4.9 hemoglobin 7.7 electrolytes are normal BUN is 85 creatinine 3.59 Patient was reevaluated today on 02/18/2024, remains on Lasix drip, 10 mg/h, remains in constant negative fluid balance, chest x-ray today is definitely showing improvement but nonetheless her pulmonary edema is not completely resolved. Patient was being considered for CABG however the plan is presently on hold because of her overall pulmonary status and possibly the patient could benefit from more optimization of her congestive heart failure. In the meantime she seems to be doing better with the Lasix drip. Patient is also maintained on bronchodilators for her underlying COPD. Progress note dated February 19, 2024. The patient is seen today in room 385. She was scheduled to have bypass grafting today, but the surgery was canceled. She is currently on 3 L of oxygen by nasal cannula. She continues on a Lasix drip at 10 mg an hour. I did have the opportunity to review her lung function. Her FEV1 is 0.77 L or 27% of predicted. Based on that number alone, without having to evaluate the MVV, or the RV/TLC ratio, the patient is at high increased operative risk. Current laboratory data includes a white count 5.1, hemoglobin 8.3, hematocrit 26.6, and a platelet count of 403,000. Sodium 137, potassium 3.5, chlorides 101, CO2 28, BUN 82, and creatinine 3.34. Calcium is 8.2. Nasal screen was positive for non-MRSA staph. Chest x-ray is consistent with mild CHF. The patient is seen today February 20, 2024 in follow-up on the selective care unit. She is currently sitting up in bed. Awake and alert in no acute distress. She is maintaining O2 saturations in the 90s on 3 L/min per nasal cannula. She remains on a Lasix drip at 10 mg/h. Currently net -1 L balance. White count 4.8. Hemoglobin 7.8. Platelets 309. Sodium 132. Potassium 3.7. Bicarb 28. BUN 84. Creatinine 3.31. Glucose 240. She remains on bronchodilators. Heparin for DVT prophylaxis. She has been worked up for possible coronary artery bypass surgery once she recovers from her acute illness. The patient is seen today February 21, 2024 in follow-up on the selective care unit. She is awake and alert in no acute distress. Maintaining good O2 saturations in the 90s on 2 L/min per nasal cannula. She is continued on Lasix drip at 10 mg/h. This x-ray continues to show interstitial pulmonary edema with small left greater than right pleural effusions. She is status post 1 unit of packed red blood cells this admission. Current hemoglobin 8.2. Platelets 301. White count 5.5. Sodium 133. Potassium 3.9. Bicarb 30. BUN 84. Creatinine 3.05. Glucose 108. Remains on bronchodilators. Heparin for DVT prophylaxis. She is currently in a +159 ml balance. The patient is seen today February 22, 2024 in follow-up on the selective care unit. She is resting comfortably in bed. Awake and alert in no acute distress. Denies any chest pain. No worsening shortness of breath, cough or congestion. Maintaining good O2 saturations in the mid 90s on 2 L/min per nasal cannula. She is afebrile. Hemodynamically stable. She is maintained on DuoNeb inhalations, Pulmicort and Perforomist inhalations, Robitussin as needed. Heparin for DVT prophylaxis. She is continued on diuretics. Currently in a - 800 mL balance. Glucose 269. Progress note dated February 23, 2024. The patient is seen today in room 385. She is resting comfortably. She is on 2 L. She is not receiving any IV fluids. Current labs include a white count 4.8, hemoglobin 7.7, hematocrit 25.6, and a platelet count of 294,000. Sodium 131, potassium 4.3, chlorides 97, CO2 30, BUN 82, creatinine 3.32. Glucose is 164. Calcium 7.8, and magnesium 1.9. The nasal swab, on February 15, was positive for non-MRSA, staph. A chest x-ray today shows similar multifocal airspace opacities. Progress note dated February 24, 2024. This is a 58-year-old female seen today in room 385. She is on oxygen at 2 L. She is not receiving any IV fluids. Today, respiratory was kind enough to repeat spirometry. Her FEV1, prebronchodilator, was 0.71 L. Her FEV1 postbronchodilator was 0.83 L. These lung function are very similar to the prio r lung function, that was done a few days ago. Clinically, the patient's respiratory status appears to be stable. She is satting well on 2 L. She is not manifesting any signs or symptoms of respiratory difficulty or distress. Current laboratory data includes a white count 6.1, hemoglobin 8, hematocrit 26.8, and a normal platelet count. Sodium 134, potassium 3.8, chlorides 99, CO2 30, BUN 78, and creatinine 3.24. Glucose Was 195. Calcium 8.3, Magnesium Is 1.9. Chest x-ray is essentially unchanged, and reveals evidence of cardiomegaly. Progress note dated February 25, 2024. 58-year-old female who apparently scheduled to have open heart surgery tomorrow, February 25. The patient is currently on 2 L of oxygen. No IV fluids. She has been relatively stable over the last 2 or 3 days. The patient had repeat spirometry yesterday, which showed a FEV1, postbronchodilator, of 0.83. Which is only slightly better than her previous FEV1. Certainly, she would be at high risk, for general anesthesia. Current laboratory data includes a white count 4.7, hemoglobin 8.1, hematocrit 26.8, and a normal platelet count. Coagulation studies are normal. Sodium 133, potassium 4.3, chloride 99, CO2 32, BUN 77, creatinine 3.20. Glucose is 87. AST is 50. ALT is 40. Albumin is 2.3. Chest x-ray shows cardiomegaly, with the persistent diffuse interstitial changes. Patient was reevaluated today on 03/10/2024, remains in the ICU, remains on room air, patient is now postoperative day #13 off pump CABG x 4 with sequential left internal mammary artery to left anterior descending coronary artery and diagonal coronary artery, reverse saphenous vein graft's to the posterior descending coronary artery and second obtuse marginal coronary artery, closure of the left atrial appendage with 35mm AtriCure clip patient remains in the ICU, doing fairly well, however continues to have bilateral pleural chest tubes in place, and significant amount of drainage noted in the last 24 hours and both tubes. 5 00 mL of drainage from the right-sided chest tube, and another 500 from the left-sided chest tube over the last 24 hours patient is not scheduled to undergo hemodialysis today. But she did have dialysis yesterday. Had 3 L removed yesterday. Clinically she is doing well, but considering her LV dysfunction her overall prognosis remains extremely poor and guarded. At this point no plans to remove any of the chest tubes considering her significant amount of drainage in the last 24 hours chest x-ray is reassuring there is evidence of tiny small biapical pneumothoraces. No air leak noted.WBC is 5.2 hemoglobin 8.7 electrolytes are normal BUN is 52 creatinine 3.54 The patient is seen today March 11, 2024 in follow-up in the intensive care unit. Postoperative day #14 following coronary bypass surgery. She is currently awake and alert in no acute distress. Sitting up in bed. She is maintaining O2 saturations in the 90s on room air. No IV fluids. She is to receive hemodialysis today with a goal of 2 L to be removed. Her bilateral chest tubes remain in place. The left chest tube drained another 200 mL of serous drainage while the right chest tube drained another 230 mL overnight. Chest x-ray reveals postsurgical changes with mild pulmonary edema. No significant change. Small left pneumothorax. She is status post 2 units of packed red blood cells this admission. Current hemoglobin 8.3. White count 5.3. Platelets 253. Sodium 130. Potassium 4.5. Bicarb 26. BUN 59. Creatinine 4.0. Glucose 189. She remains on DuoNeb ventilations, Symbicort. Working well with the incentive spirometer. Heparin for DVT prophylaxis. Remains on IV Bumex. Currently in a -1.2 L balance The patient is seen today March 12, 2024 in follow-up in the intensive care unit. Postoperative day #15. She is currently resting in bed. Awake and alert in no acute distress. She is maintaining good O2 saturations in the 90s on room air. The plan is for the right-sided chest tube to be removed today and possibly the left-sided 1 to be removed tomorrow. She is going for permacath today. She received hemodialysis yesterday with 2 L removed. Receiving hemodialysis again today with a goal of 2 L as well. Chest x-ray reveals surgical changes with mild pulmonary edema. Small left-sided pneumothorax. She has received 2 units of packed red blood cells this admission. Current hemoglobin 8.4. Platelets 219. White count 5.9. Sodium 130. Potassium 4.6. Bicarb 26. BUN 46. Crea tinine 3.31. Glucose 180. She remains on bronchodilators. Heparin for DVT prophylaxis. Transitioned to oral Demadex, currently in a -1.6 L balance. The patient is seen today March 13, 2024 in follow-up in the intensive care unit. Postoperative day #16. She is awake and alert in no acute distress. Resting in bed. Both of her chest tubes have been removed. Chest x-ray reveals a trace right and small left pneumothorax. No evidence of pleural effusion or focal consolidation. White count 5.8. Hemoglobin 8.7. Platelets 181. Sodium 128. Potassium 4.9. Bicarb 23. BUN 37. Creatinine 3.07. Glucose 262. She remains on DuoNeb ventilations, Symbicort. Heparin for DVT prophylaxis. Progress note dated March 14, 2024. The patient is seen today in room 352. She was in the intensive care unit yesterday. She was finally moved out. Today is postoperative day #17. Currently, the patient is on room air. She is not receiving any IV fluids. Both sided chest tubes have been removed. Current labs include a white count 6.2, hemoglobin 8.5, hematocrit 28.6, and a normal platelet count. Sodium 128, potassium 4, chlorides 97, CO2 27, BUN 30, creatinine 2.96. Glucose is 296. Calcium is 8. Chest x-ray shows a small left-sided pneumothorax. No evidence of right pneumothorax. Progress note dated March 15, 2024. The patient is seen today in room 352. The patient is having dialysis, with a goal of removal of 2.5 L of fluid. Her chest x-ray looks excellent. She is on room air. She is not receiving any IV fluids. The patient is feeling better. Current labs, white count 5.2, hemoglobin 8.5, hematocrit 28.2, and a normal platelet count. Sodium 128, potassium 4.5, chlorides 98, CO2 27, BUN 41, creatinine 3.79. Glucose 161. Calcium 7.8. Chest x-ray shows no significant acute cardiopulmonary disease. Progress note dated March 16, 2024. The patient is seen today in room 352. She is sitting up in a chair next to her hospital bed. She is not on any oxygen. She is not receiving any IV fluids. She is feeling much better. Current labs, white count 5.5, hemoglobin 9.2, hematocrit 29.7, and a platelet count 151,000. Sodium 130, potassium 4.1, chlorides 99, CO2 26, BUN 28, creatinine 2.78. She did receive dialysis yesterday. No chest x-ray today. Objective - Vital Signs Vital signs: Vital Signs Temp 98.7 F 03/16/24 11:28 Pulse 63 03/16/24 11:28 Resp 18 03/16/24 11:28 BP 110/57 03/16/24 11:28 Pulse Ox 94 L 03/16/24 11:28 FiO2 21 03/15/24 07:38 Intake & Output 03/15/24 03/16/24 03/16/24 18:59 06:59 18:59 Intake Total 1438 540 780 Output Total 3200 Balance -1762 540 780 Weight 86 kg 80.2 kg Intake: Oral 938 540 780 Hemodialysis 500 Output: Urine 200 Hemodialysis 3000 Other: Voiding Method Bedside Commode Bedside Commode # Voids 1 0 # Bowel Movements 1 ABP, PAP, CO, CI - Last Documented Arterial Blood Pressure 139/47 Pulmonary Artery Pressure 36/20 Cardiac Output 4.2 Cardiac Index 2.3 - Exam No acute distress, oriented 3. The patient is currently on room air. HEENT examination is grossly unremarkable. Mucous membranes are moist. No oral lesions. Neck supple. Full range of motion. No adenopathy thyromegaly or neck vein distention. Cardiovascular examination reveals regular rhythm rate. S1-S2 normal. No S3 or S4. No discernible murmur noted. Heart rate 63 bpm. Lungs reveal scattered rhonchi and crackles. Breath sounds are otherwise equal. No wheezes. Saturation is 95 %. Abdomen soft bowel sounds are heard. No masses or tenderness. Extremities are intact. No cyanosis clubbing or edema. Skin is without rash or lesion. Neurologic examination is brief but nonfocal. - Labs CBC & Chem 7: 03/16/24 08:20 03/16/24 08:20 Labs: Abnormal Lab Results - Last 24 Hours (Table) 03/15/24 03/15/24 03/16/24 Range/Units 15:04 20:33 06:01 RBC (3.80-5.40) m/uL Hgb (11.4-16.0) gm/dL Hct (34.0-46.0) % MCHC (31.0-37.0) g/dL Lymphocytes # (1.0-4.8) k/uL Eosinophils # (0-0.7) k/uL Sodium (137-145) mmol/L BUN (7-17) mg/dL Creatinine (0.52-1.04) mg/dL Glucose (74-99) mg/dL POC Glucose (mg/dL) 65 L 293 H 166 H (70-110) mg/dL Calcium (8.4-10.2) mg/dL 03/16/24 03/16/24 03/16/24 Range/Units 08:20 08:20 11:27 RBC 3.00 L (3.80-5.40) m/uL Hgb 9.2 L (11.4-16.0) gm/dL Hct 29.7 L (34.0-46.0) % MCHC 30.9 L (31.0-37.0) g/dL Lymphocytes # 0.8 L (1.0-4.8) k/uL Eosinophils # 0.8 H (0-0.7) k/uL Sodium 130 L (137-145) mmol/L BUN 28 H (7-17) mg/dL Creatinine 2.78 H (0.52-1.04) mg/dL Glucose 190 H (74-99) mg/dL POC Glucose (mg/dL) 341 H (70-110) mg/dL Calcium 7.7 L (8.4-10.2) mg/dL Assessment and Plan Assessment: Severe triple-vessel coronary artery disease, S/P four-vessel off-pump bypass, postop day # 19. Acute non-ST segment elevation myocardial infarction. Acute hypoxemic respiratory failure secondary to CHF exacerbation. Possible community-acquired bibasilar pneumonia. Ischemic cardiomyopathy with an ejection fraction of 20 to 25%. History of severe mitral valve regurgitation. Normocytic, normochromic anemia. Acute kidney injury. Non-anion gap metabolic acidosis. COPD, severe, with an FEV1 that is 0.77 L or 27% of predicted. Diabetes mellitus. Hypertension. Hyperlipidemia. History of CVA. History of hypothyroidism. History of fibromyalgia. History of GERD. Previous history of tobacco use. Plan: Plan dated February 19, 2024. The patient continues on oxygen, at 3 L. She continues on Lasix drip at 10 mg an hour. The patient was boarded to have surgery today, but the surgery was canceled. The patient's lung function is very poor, with an FEV1 that is 0.77 L or 27% of predicted. Based on that number alone, the patient is at high increased operative risk. The patient continues on bronchodilators, as well as her other medications. Additional recommendations and suggestions are forthcoming. Labs, x-rays, medications are reviewed. We will continue to follow make recommendations. The bronchodilators that she is currently will be improved. Plan dated February 23, 2024. The patient appears to be much more stable from a respiratory status standpoint. She will have repeat PFTs. Labs, x-rays, medications are reviewed. Earlier spirometry showed an FEV1 that was 0.77 L or 27% of predicted. Labs, x-rays, and medications are all reviewed. We will continue to follow the patient, make recommendations along the way. Prognosis is guarded. She continues on bronchodilators. Plan dated February 24, 2024. The patient had repeat spirometry today. Her lung function are marginally improved, after bronchodilator. Previous FEV1 was .77 L. Today's postbronchodilator FEV1 is 0.83 L. The patient continues on appropriate bronchodilators. The patient's at high increased operative risk, based on her lung function. Having said that, on 2 L, appears relatively comfortable. Her saturations are in the low to mid 90s. Additional recommendations and suggestions are forthcoming. Prognosis is guarded. She apparently is scheduled to have open heart surgery on Monday, next week. Plan dated February 25, 2024. The patient is seen today in room 385. She continues on oxygen at 2 L. Labs, x-rays, and medications are reviewed. Apparently the patient is scheduled to have open heart surgery tomorrow. Her FEV1 is 0.77 L which is 27% of predicted. I repeat spirometry showed an FEV1 that was 0.83 L. Labs, x-rays, and medications are reviewed. We will continue to follow the patient, make recommendations along the way. Prognosis is currently guarded. Plan dated March 14, 2024. The patient has had a long hospitalization, now for 37 days. The patient had recurrent bilateral pleural effusions, with chest tubes in place, up until just a few days ago. Currently, the patient is on room air. She is not receiving any IV fluids. The patient was moved out of the intensive care unit yesterday. She is seen today room 352. Labs, x-rays, and medications are reviewed. We will continue to follow make recommendations along the way. Prognosis is guarded. Plan dated March 15, 2024. The patient is seen today in room 352. The patient continues to show daily improvement. She is on room air. Saturations are 97%. Labs, and x-rays, I reviewed. The patient is having hemodialysis today. The goal is to remove 2.5 L of fluid. The patient's chest x-ray is stable. No significant pleural effusions are noted. We will continue to follow make recommendations along the way. Plan dated March 16, 2024. The patient is doing much better. No chest x-ray today. Labs are reviewed. The patient is sitting in a chair next to her bed. She denies any significant shortness of breath, cough, wheezing, chest tightness, or phlegm production. Her most recent chest x-rays have looked very good. No evidence of recurrent pleural effusion. We will continue to follow make recommendations along the way. Prognosis is currently guarded. Time with Patient: Less than 30
--- NOTE | 2024-03-16 15:10 | P.PN ---
Subjective Progress Note Date: 03/16/24 58 years old female with past medical history of multiple medical problems as below She has been incarcerated for 52 days, there is officer at bedside. Patient presents because of shortness of breath and exertional dyspnea has for the last 2 days, she states she hears herself wheezing when she lies down. Currently she is breathing quietly. She is complaining for mild chest pain on the left side, nonradiating nonspecific, feels much better now and very mild. She follow-up with her database administration manager Dr. Donal Herrera and front desk auxiliary Dr. Babb who examined her about 2 months ago where she has some mild ulcer In the bottom of her right total This morning patient has low-grade fever 100.2 She is also mildly tachypneic around 22 She is saturating 93% on 2 L oxygen via nasal cannula Labs reviewed showing hemoglobin of 7.7, rest of CBC is unremarkable BMP liver enzymes not elevated. INR 0.9. Lactic 0.9 proBNP is elevated 25 100 EKG showing sinus rhythm at [address]-T changes, no left bundle branch block 03/16/2024 Patient is seen and evaluated sitting up in a chair next to her hospital bed. She is not on any oxygen. She is not receiving any IV fluids. She is feeling much better. Vital signs are reviewed and remained stable Current labs, white count 5.5, hemoglobin 9.2, hematocrit 29.7, and a platelet count 151,000. Sodium 130, potassium 4.1, chlorides 99, CO2 26, BUN 28, creatinine 2.78. She did receive dialysis yesterday. No chest x-ray today. -- Patient continues to be stable; awaits placement Objective - Vital Signs Vital signs: Vital Signs Temp 98.7 F 03/16/24 11:28 Pulse 63 03/16/24 11:28 Resp 18 03/16/24 11:28 BP 110/57 03/16/24 11:28 Pulse Ox 94 L 03/16/24 11:28 FiO2 21 03/15/24 07:38 Intake & Output 03/15/24 03/16/24 03/16/24 18:59 06:59 18:59 Intake Total 1438 540 780 Output Total 3200 Balance -1762 540 780 Weight 86 kg 80.2 kg Intake: Oral 938 540 780 Hemodialysis 500 Output: Urine 200 Hemodialysis 3000 Other: Voiding Method Bedside Commode Bedside Commode # Voids 1 0 # Bowel Movements 1 ABP, PAP, CO, CI - Last Documented Arterial Blood Pressure 139/47 Pulmonary Artery Pressure 36/20 Cardiac Output 4.2 Cardiac Index 2.3 - Exam GENERAL: The patient is alert and oriented x3, not in any acute distress. Ill appearance, pale appearing HEENT: Pupils are round and equally reacting to light. EOMI. Normocephalic, atraumatic. No pharyngeal erythema. No thyromegaly. CARDIOVASCULAR: S1 and S2 present. No murmurs, rubs, or gallops. PULMONARY: Decreased breath sounds bilaterally ABDOMEN: Soft, nontender, nondistended, normoactive bowel sounds. No palpable organomegaly. Saldaña catheter in place MUSCULOSKELETAL: No joint swelling or deformity. EXTREMITIES: No cyanosis, clubbing, 1+ bilateral pitting leg edema. NEUROLOGICAL: Gross neurological examination did not reveal any focal deficits. - Labs CBC & Chem 7: 03/16/24 08:20 03/16/24 08:20 Labs: Abnormal Lab Results - Last 24 Hours (Table) 03/15/24 03/15/24 03/15/24 Range/Units 11:24 15:04 20:33 RBC (3.80-5.40) m/uL Hgb (11.4-16.0) gm/dL Hct (34.0-46.0) % MCHC (31.0-37.0) g/dL Lymphocytes # (1.0-4.8) k/uL Eosinophils # (0-0.7) k/uL Sodium (137-145) mmol/L BUN (7-17) mg/dL Creatinine (0.52-1.04) mg/dL Glucose (74-99) mg/dL POC Glucose (mg/dL) 161 H 65 L 293 H (70-110) mg/dL Calcium (8.4-10.2) mg/dL 03/16/24 03/16/24 03/16/24 Range/Units 06:01 08:20 08:20 RBC 3.00 L (3.80-5.40) m/uL Hgb 9.2 L (11.4-16.0) gm/dL Hct 29.7 L (34.0-46.0) % MCHC 30.9 L (31.0-37.0) g/dL Lymphocytes # 0.8 L (1.0-4.8) k/uL Eosinophils # 0.8 H (0-0.7) k/uL Sodium 130 L (137-145) mmol/L BUN 28 H (7-17) mg/dL Creatinine 2.78 H (0.52-1.04) mg/dL Glucose 190 H (74-99) mg/dL POC Glucose (mg/dL) 166 H (70-110) mg/dL Calcium 7.7 L (8.4-10.2) mg/dL Assessment and Plan Assessment: Acute congestive heart failure with systolic dysfunction ejection fraction of 20-25 % New onset cardiomyopathy. Ischemic versus nonischemic. Acute hypoxemic respiratory failure multifactorial CHF, multifocal pneumonia. Multifocal pneumonia Non-ST elevated [place] Acute kidney injury due to ATN secondary to cardiorenal. Patient is nonoliguric Acute on chronic anemia of chronic disease Acute urinary tract infection, urine culture showing skin or genital kwesi Chronic kidney disease stage II with acute kidney injury Urinary retention status post Saldaña catheter placement Diabetes mellitus type 2 Plan: In regards to hypoxemic respiratory failure, CHF exacerbation, continue patient on IV Lasix drip, continue to monitor intake and output continue with fluid restriction. Regards to multifocal pneumonia procalcitonin elevated continue. Completed ceftriaxone for 5 days on 02/13/2024 In regards to elevated troponin, continue current management medically, not a candidate for cardiac catheterization secondary to renal failure and anemia. Lexiscan stress test was done today.. In regards to diabetes mellitus Accu-Cheks ACHS continue patient on correctional insulin, NovoLog and Levemir In regards to anemia, continue to monitor H&H transfuse if hemoglobin less than 7, 1 unit of packed RBC ordered, fecal occult blood test ordered. Continue to titrate oxygen to room air.
[2024-03-16 16:27] LABS: Glucose,Whole Blood 143 mg/dL (70-110)
[2024-03-16 20:26] LABS: Glucose,Whole Blood 152 mg/dL (70-110)
[2024-03-17 06:01] LABS: Glucose,Whole Blood 254 mg/dL (70-110)
--- NOTE | 2024-03-17 07:22 | XR ---
EXAMINATION TYPE: XR chest 2V DATE OF EXAM: 03/17/2024 6:29 AM CLINICAL INDICATION:Female, 58 years old with history of post cardiac surgery; COMPARISON: Chest radiographs from 03/15/2024 TECHNIQUE: XR chest 2V Frontal and lateral views of the chest. FINDINGS: Lungs/Pleura: There is no evidence of pleural effusion, focal consolidation, or pneumothorax. Pulmonary vascularity: Unremarkable. Heart/mediastinum: Cardiomediastinal silhouette is unremarkable. A loop recorder projects over the le ft thorax over the heart. Left atrial appendage occlusion device is present. Musculoskeletal: No acute osseous pathology. Midline sternotomy wires are noted. Other findings: None Lines/Tubes: Right internal jugular central venous catheter with distal tip at the cavoatrial junction. Right-sided PICC line with distal tip at the cavoatrial junction. IMPRESSION: stable exam, no acute cardiopulmonary disease/process.
[2024-03-17] MEDS: IPRATROPIUM-ALBUTEROL 3 ML NEB INHALATION PRN (07:32)
--- NOTE | 2024-03-17 08:13 | P.PN ---
Subjective Progress Note Date: 03/17/24 Principal diagnosis: Triple-vessel coronary artery disease, non-STEMI this admission, acute heart failure with reduced ejection fraction, new onset ischemic cardiomyopathy, moderate to severe mitral regurgitation, acute on chronic kidney disease, acute anemia. History of hypertension, hyperlipidemia, hypothyroid, diabetes mellitus, CVA, hepatitis as a child, CKD stage IV, previous tobacco dependence with recent cessation, severe COPD, previous methamphetamine use with recent cessation, family history of coronary artery disease POD #20 Off-pump CABG x 4 with sequential left internal mammary artery to left anterior descending coronary artery and diagonal coronary artery, reverse saphenous vein graft to the posterior descending coronary artery and second obtuse marginal coronary artery, closure of the left atrial appendage with 35mm AtriCure clip, placement of percutaneous right femoral intra-aortic balloon pump, transesophageal echocardiogram performed by anesthesia. Postoperative acute blood loss anemia, expected secondary to hemodilution and preoperative anemia Postoperative paroxysmal atrial fibrillation, a known common occurrence after cardiac surgery, not a complication Acute kidney injury secondary to ATN secondary to cardiorenal syndrome, not a complication as it was expected due to preoperative acute on chronic kidney disease POD #10 ultrasound-guided right common femoral vein access and placement of central venous catheter for dialysi POD #5 ultrasound-guided right internal jugular vein access, placement of 19 cm tunneled dialysis catheter with fluoroscopic assistance under moderate conscious sedation completed by Dr. Barker The patient was seen and examined this morning sitting up in recliner on the cardiac stepdown unit in no acute distress. States pain is controlled on current medication regimen, denies shortness of breath. States she does not feel as good today as she got very little sleep last night. Currently in sinus rhythm, hemodynamically stable. Currently on room air with oxygen saturation in the mid 90s. Able to achieve 1000 mL on her incentive spirometry. She has been ambulatory with assistance. Chest x-ray reviewed, labs pending. Remains with right-sided PICC line and right internal jugular permacath. Awaiting insurance authorization for subacute rehab. No other new concerns. Objective - Vital Signs Vital signs: Vital Signs Temp 98.1 F 03/16/24 20:00 Pulse 92 03/17/24 07:44 Resp 16 03/17/24 04:00 BP 119/63 03/17/24 06:30 Pulse Ox 94 L 03/17/24 04:00 FiO2 21 03/15/24 07:38 Intake & Output 03/16/24 03/17/24 03/17/24 18:59 06:59 18:59 Intake Total 780 Output Total 200 Balance 580 Weight 80.2 kg 80.1 kg Intake: Oral 780 Output: Urine 200 Other: Voiding Method Bedside Commode Bedside Commode ABP, PAP, CO, CI - Last Documented Arterial Blood Pressure 139/47 Pulmonary Artery Pressure 36/20 Cardiac Output 4.2 Cardiac Index 2.3 - Exam CONSTITUTIONAL: Appears comfortable, cooperative, no acute distress RESPIRATORY: Lungs sounds diminished bilaterally. Respirations even, nonlabored. Currently on room air with oxygen saturation 94%. Able to achieve 1000 mL on incentive spirometry. Weak cough. CARDIOVASCULAR: S1, S2 present. Regular rate and rhythm, sinus rhythm on telemetry. Sternum stable. Palpable peripheral pulses bilaterally. Bilateral lower extremity edema present. No calf pain or tenderness noted. Heart hugger in place with patient demonstrating appropriate use. Antiembolism stockings, SCDs present. GASTROINTESTINAL: Abdomen soft, nontender, nondistended. Active bowel sounds present 4 quadrants. Tolerating diet. Positive bowel movement /7 GENITOURINARY: Continues to void although not always measured. Receiving hemodialysis per nephrology INTEGUMENTARY: Skin is warm and dry with evidence of good perfusion. Anterior chest incision well approximated. Left lower extremity EVH site well approximated without redness or drainage. NEUROLOGIC: Cranial nerves II through XII intact MUSKULOSKELETAL: Able to move all extremities, strength equal bilaterally PSYCHIATRIC: Alert and oriented to person place and time, appropriate affect, intact judgment and insight INVASIVE LINES AND TUBES: Right upper arm PICC present. Right internal jugular permacath present - Allied health notes Allied health notes reviewed: nursing - Labs CBC & Chem 7: 03/16/24 08:20 03/16/24 08:20 Labs: Abnormal Lab Results - Last 24 Hours (Table) 03/16/24 03/16/24 03/16/24 Range/Units 08:20 08:20 11:27 RBC 3.00 L (3.80-5.40) m/uL Hgb 9.2 L (11.4-16.0) gm/dL Hct 29.7 L (34.0-46.0) % MCHC 30.9 L (31.0-37.0) g/dL Lymphocytes # 0.8 L (1.0-4.8) k/uL Eosinophils # 0.8 H (0-0.7) k/uL Sodium 130 L (137-145) mmol/L BUN 28 H (7-17) mg/dL Creatinine 2.78 H (0.52-1.04) mg/dL Glucose 190 H (74-99) mg/dL POC Glucose (mg/dL) 341 H (70-110) mg/dL Calcium 7.7 L (8.4-10.2) mg/dL 03/16/24 03/16/24 03/17/24 Range/Units 16:25 20:25 05:59 RBC (3.80-5.40) m/uL Hgb (11.4-16.0) gm/dL Hct (34.0-46.0) % MCHC (31.0-37.0) g/dL Lymphocytes # (1.0-4.8) k/uL Eosinophils # (0-0.7) k/uL Sodium (137-145) mmol/L BUN (7-17) mg/dL Creatinine (0.52-1.04) mg/dL Glucose (74-99) mg/dL POC Glucose (mg/dL) 143 H 152 H 254 H (70-110) mg/dL Calcium (8.4-10.2) mg/dL - Imaging and Cardiology Chest x-ray: report reviewed, image reviewed Assessment and Plan Assessment: Triple-vessel coronary artery disease, non-STEMI this admission, status post four-vessel off-pump CABG Acute heart failure with reduced ejection fraction, 20-25%, 35% on [place] New onset ischemic cardiomyopathy Moderate to severe mitral regurgitation on transthoracic echocardiogram, mild mitral regurgitation on [place] Acute on chronic kidney disease secondary to ATN secondary to cardiorenal syndrome, status post right femoral vein temporary dialysis catheter placement, status post right internal jugular permacath, receiving dialysis per nephrology Acute anemia Hypertension Hyperlipidemia, treated, cholesterol 150, LDL 72.8 Hypothyroid, TSH 1.73 Diabetes mellitus, hemoglobin A1c 7.1% CVA Hepatitis as a child CKD Previous tobacco dependence with recent cessation Severe COPD, preoperative FEV1 27% of predicted Previous methamphetamine use with recent cessation Family history of coronary artery disease with sister having multiple stents Postoperative acute blood loss anemia, expected Postoperative paroxysmal atrial fibrillation, status post ligation of the left atrial appendage, currently sinus Postoperative urinary retention requiring re-initiation of barker, expected given pre-op retention Medical debility Plan: Continue to maximize medical therapy with aspirin, statin, Plavix, beta-alex Continue hydralazine for afterload reduction with hold parameters Continue oral amiodarone for A-fib prophylaxis, protocol ends amiodarone on March 19, 2024 Encourage incentive spirometry use 10 times every hour while awake. Bronchodilators per pulmonology Increase activity, ambulate as tolerated. PT/OT/cardiac rehab consulted Will monitor daily labs and x-rays. Electrolyte replacement per protocol. Continue Demadex per nephrology Hemodialysis per nephrology, last round was 03/15 with removal of 3 L GI/DVT prophylaxis Pain control per current medication regimen. Avoid Toradol due to kidney failure Insulin management per internal medicine Continue to record strict accurate intake and output Daily weights Discharge planning in progress, anticipate discharge to [facility] as soon as we have acceptance and insurance authorization More recommendations to follow
[2024-03-17 08:41] LABS: HGB 8.5 gm/dL (11.4-16.0); Hypochromasia Marked; MCH 29.8 pg (25.0-35.0); MCHC 30.2 g/dL (31.0-37.0); MCV 98.6 fL (80.0-100.0); Macrocytosis Slight; Mean Platelet Volume 8.8; Platelet Count 151 k/uL (150-450); RBC 2.84 m/uL (3.80-5.40); RDW 14.9 % (11.5-15.5); WBC 6.1 k/uL (3.8-10.6)
[2024-03-17 09:04] LABS: African American GFR (CKD) 18 (>60 ml/min/1.73 sqM); Anion Gap 4 mmol/L; Blood Urea Nitrogen 36 mg/dL (7-17); Calcium 7.7 mg/dL (8.4-10.2); Carbon Dioxide 26 mmol/L (22-30); Chloride 98 mmol/L (98-107); Glucose 232 mg/dL (74-99); Non-African American GFR(CKD) 16 (>60 ml/min/1.73 sqM); Potassium 4.4 mmol/L (3.5-5.1); Sodium 128 mmol/L (137-145)
[2024-03-17] MEDS: methocarbamoL 750 MG TAB PO PRN (10:06)
--- NOTE | 2024-03-17 10:27 | P.PN ---
Subjective Patient is seen in follow-up for acute kidney injury. Started on hemodialysis March 08, 2024. Has permacath. Hemodynamically stable. Awaits placement. Overall feels well. Vital signs are stable. General: No acute distress. HEENT: Head exam is unremarkable. On nasal cannula. LUNGS: No audible rhonchi or wheezes. HEART: Rate and Rhythm are regular. ABDOMEN: Nontender. EXTREMITITES: 1+ edema. Objective - Vital Signs Vital signs: Vital Signs Temp 98.1 F 03/16/24 20:00 Pulse 92 03/17/24 07:44 Resp 16 03/17/24 04:00 BP 119/63 03/17/24 06:30 Pulse Ox 94 L 03/17/24 04:00 FiO2 21 03/15/24 07:38 Intake & Output 03/16/24 03/17/24 03/17/24 18:59 06:59 18:59 Intake Total 780 180 Output Total 200 Balance 580 180 Weight 80.2 kg 80.1 kg Intake: Oral 780 180 Output: Urine 200 Other: Voiding Method Bedside Commode Bedside Commode ABP, PAP, CO, CI - Last Documented Arterial Blood Pressure 139/47 Pulmonary Artery Pressure 36/20 Cardiac Output 4.2 Cardiac Index 2.3 - Labs CBC & Chem 7: 03/17/24 07:11 03/17/24 07:11 Labs: Abnormal Lab Results - Last 24 Hours (Table) 03/16/24 03/16/24 03/16/24 Range/Units 08:20 11:27 16:25 RBC (3.80-5.40) m/uL Hgb (11.4-16.0) gm/dL Hct (34.0-46.0) % MCHC (31.0-37.0) g/dL Sodium 130 L (137-145) mmol/L BUN 28 H (7-17) mg/dL Creatinine 2.78 H (0.52-1.04) mg/dL Glucose 190 H (74-99) mg/dL POC Glucose (mg/dL) 341 H 143 H (70-110) mg/dL Calcium 7.7 L (8.4-10.2) mg/dL 03/16/24 03/17/24 03/17/24 Range/Units 20:25 05:59 07:11 RBC 2.84 L (3.80-5.40) m/uL Hgb 8.5 L (11.4-16.0) gm/dL Hct 28.0 L (34.0-46.0) % MCHC 30.2 L (31.0-37.0) g/dL Sodium (137-145) mmol/L BUN (7-17) mg/dL Creatinine (0.52-1.04) mg/dL Glucose (74-99) mg/dL POC Glucose (mg/dL) 152 H 254 H (70-110) mg/dL Calcium (8.4-10.2) mg/dL 03/17/24 Range/Units 07:11 RBC (3.80-5.40) m/uL Hgb (11.4-16.0) gm/dL Hct (34.0-46.0) % MCHC (31.0-37.0) g/dL Sodium 128 L (137-145) mmol/L BUN 36 H (7-17) mg/dL Creatinine 3.09 H (0.52-1.04) mg/dL Glucose 232 H (74-99) mg/dL POC Glucose (mg/dL) (70-110) mg/dL Calcium 7.7 L (8.4-10.2) mg/dL Assessment and Plan Plan: Assessment: 1. Acute kidney injury secondary to ATN secondary to cardiorenal syndrome. Also from hypotension. Started on hemodialysis March 08, 2024. Has permacath. Creatinine as low as 0.98 dated March 01, 2022. No hydronephrosis noted on kidney ultrasound. Serologies negative. 2. Acute on chronic systolic CHF with ejection fraction of 20 to 25% with moderate to severe mitral regurgitation and mild pulmonary hypertension. 3. Volume overload. Improving with ultrafiltration. 4. Anemia. Iron deficiency noted - s/p IV iron completed 03/02/24. Seen by GI. Status post blood transfusion this admission. Also received IV DDAVP. On Aranesp. 5. Metabolic acidosis secondary to acute kidney injury and IV fluids. Better. 6. Hyponatremia secondary to acute kidney injury. Hypervolemic. Stable. 7. Urinary retention status post Saldaña catheter placement. On Flomax. Saldaña catheter now removed. Plan: Hemodialysis Monday. She will be maintained on Monday schedule outpatient. Maintain torsemide. Maintain fluid restriction. Avoid nephrotoxins. Blood pressure on the lower side. Has parameters for hydralazine. Continue to monitor renal function and urine output. Phosphorus level 4.5 dated March 13, 2024. Awaits placement.
[2024-03-17 11:12] LABS: Glucose,Whole Blood 298 mg/dL (70-110)
--- NOTE | 2024-03-17 12:26 | P.PN ---
Subjective Progress Note Date: 03/17/24 Principal diagnosis: Coronary artery disease, CHF. The patient is seen today February 12, 2024 in follow-up on the selective care unit. She is currently sitting up in bed. Awake and alert in no acute distress. She is maintaining O2 saturation in the 90s on 3 L nasal cannula. She is afebrile. Hemodynamically stable. Today's chest x-ray reviewed reveals diffuse bilateral infiltrates with small effusion or early congestive heart failure. Hemoglobin 6.7. 1 unit of packed blood cells have been ordered. Platelets 362. White count 6.1. Sodium 131. Potassium 4.2. Bicarb 21. BUN 80. Creatinine 3.89. Glucose 286. She remains on. Antibiotics in the form of ceftriaxone. Remains on a Lasix drip at 5 mg an hour. Currently in a -178 mL balance. The patient is seen today February 13, 2024 in follow-up on the selective care unit. She is awake and alert in no acute distress. Sitting up in bed. Blood and urine cultures revealed no growth. White count 6.2. Hemoglobin 7.4. Platelets 01/05/1978. Sodium 133. Potassium 3.9. Bicarb 21. BUN 83. Creatinine 3.60. Glucose 154. She remains on a Lasix drip currently at 5 mg/h. She remains on a heparin drip. Receiving sodium bicarb tablets. Continued on bronchodilators. Continued on antibiotics in the form of ceftriaxone. She is currently in a negative balance. Voided 1 L today. The patient is seen today February 14, 2024 in follow-up on the selective care unit. She is currently sitting up in bed. Awake and alert in no acute distress. She is maintaining good O2 saturations in the 90s on 3 L/min per nasal cannula. She is afebrile. Hemodynamically stable. Follow-up chest x-ray continues to show diffuse bilateral infiltrate with small effusions. She is status post 1 unit of packed red blood cells this admission. Last hemoglobin 7.7. Sodium 135. Potassium 4.6. Bicarb 20. BUN 87. Creatinine 3.55. Glucose 358. She is continued on bronchodilators. Antibiotics in form of ceftriaxone. She remains on a Lasix drip at 10 mg/h. Receiving sodium bicarb tablets. Currently -688 mL balance. Nephrology is following. The patient is seen today February 15, 2024 in follow-up on the selective care unit. She is currently sitting up in bed awake and alert in no acute distress. She is maintaining O2 saturations in the mid 90s on 2 L/min per nasal cannula. She is afebrile. Hemodynamically stable. White count 6.8. Hemoglobin 8.6. Platelets 438. Sodium 135. Potassium 4.0. Bicarb 21. BUN 84. Creatinine 3.41. Glucose 171. She remains on a Lasix drip at 10 mg/h. Continued on a heparin drip. Plan to -1 L balance. Stress testing today reveals a large area of fixed defect involving all segments of the myocardium suggestive of remote ischemia. Could not exclude a tiny area of stress-induced reversibility within the apex. Reduced wall motion activity with ejection fraction of only 21%. Patient was seen and examined today on 02/16/2024 patient is feeling better today, continues to diurese with a Lasix drip, remains in negative fluid balance, patient underwent cardiac catheterization today and she was found to have severe triple-vessel coronary artery disease, now she is being evaluated by surgery, patient does have severe LV dysfunction, she is definitely high surgical risk, but no absolute contraindication to surgery.Basic metabolic profile is normal BUN is 85 creatinine 3.58 however the patient may require hemodialysis, and she will need nephrology clearance she will also need a bedside spirometry/FEV1 for preoperative pulmonary clearance in the meantime we will continue diuretics/Lasix drip Patient was reevaluated today on 02/17/2024, remains on Lasix drip, remains in ne gative fluid balance, patient is very well aware that she had abnormal cardiac catheterization and now she is being evaluated for possible myocardial revascularization. Patient remains on oxygen at 2 L/min and her O2 sats is 97%, her PFT showed severe obstructive lung disease, however not severe enough to not consider myocardial revascularization if the patient is cleared by other consultants including nephrology and cardiology. Patient has been a smoker over the years, she had at least a [id number] smoking history. Remind you patient had a PFT with chest x-ray still showing evidence of pulmonary edema which will definitely compromise her PFT will likely reflect more restriction than ob structive lung disease. WBC count today is 4.9 hemoglobin 7.7 electrolytes are normal BUN is 85 creatinine 3.59 Patient was reevaluated today on 02/18/2024, remains on Lasix drip, 10 mg/h, remains in constant negative fluid balance, chest x-ray today is definitely showing improvement but nonetheless her pulmonary edema is not completely resolved. Patient was being considered for CABG however the plan is presently on hold because of her overall pulmonary status and possibly the patient could benefit from more optimization of her congestive heart failure. In the meantime she seems to be doing better with the Lasix drip. Patient is also maintained on bronchodilators for her underlying COPD. Progress note dated February 19, 2024. The patient is seen today in room 385. She was scheduled to have bypass grafting today, but the surgery was canceled. She is currently on 3 L of oxygen by nasal cannula. She continues on a Lasix drip at 10 mg an hour. I did have the opportunity to review her lung function. Her FEV1 is 0.77 L or 27% of predicted. Based on that number alone, without having to evaluate the MVV, or the RV/TLC ratio, the patient is at high increased operative risk. Current laboratory data includes a white count 5.1, hemoglobin 8.3, hematocrit 26.6, and a platelet count of 403,000. Sodium 137, potassium 3.5, chlorides 101, CO2 28, BUN 82, and creatinine 3.34. Calcium is 8.2. Nasal screen was positive for non-MRSA staph. Chest x-ray is consistent with mild CHF. The patient is seen today February 20, 2024 in follow-up on the selective care unit. She is currently sitting up in bed. Awake and alert in no acute distress. She is maintaining O2 saturations in the 90s on 3 L/min per nasal cannula. She remains on a Lasix drip at 10 mg/h. Currently net -1 L balance. White count 4.8. Hemoglobin 7.8. Platelets 309. Sodium 132. Potassium 3.7. Bicarb 28. BUN 84. Creatinine 3.31. Glucose 240. She remains on bronchodilators. Heparin for DVT prophylaxis. She has been worked up for possible coronary artery bypass surgery once she recovers from her acute illness. The patient is seen today February 21, 2024 in follow-up on the selective care unit. She is awake and alert in no acute distress. Maintaining good O2 saturations in the 90s on 2 L/min per nasal cannula. She is continued on Lasix drip at 10 mg/h. This x-ray continues to show interstitial pulmonary edema with small left greater than right pleural effusions. She is status post 1 unit of packed red blood cells this admission. Current hemoglobin 8.2. Platelets 301. White count 5.5. Sodium 133. Potassium 3.9. Bicarb 30. BUN 84. Creatinine 3.05. Glucose 108. Remains on bronchodilators. Heparin for DVT prophylaxis. She is currently in a +159 ml balance. The patient is seen today February 22, 2024 in follow-up on the selective care unit. She is resting comfortably in bed. Awake and alert in no acute distress. Denies any chest pain. No worsening shortness of breath, cough or congestion. Maintaining good O2 saturations in the mid 90s on 2 L/min per nasal cannula. She is afebrile. Hemodynamically stable. She is maintained on DuoNeb inhalations, Pulmicort and Perforomist inhalations, Robitussin as needed. Heparin for DVT prophylaxis. She is continued on diuretics. Currently in a - 800 mL balance. Glucose 269. Progress note dated February 23, 2024. The patient is seen today in room 385. She is resting comfortably. She is on 2 L. She is not receiving any IV fluids. Current labs include a white count 4.8, hemoglobin 7.7, hematocrit 25.6, and a platelet count of 294,000. Sodium 131, potassium 4.3, chlorides 97, CO2 30, BUN 82, creatinine 3.32. Glucose is 164. Calcium 7.8, and magnesium 1.9. The nasal swab, on February 15, was positive for non-MRSA, staph. A chest x-ray today shows similar multifocal airspace opacities. Progress note dated February 24, 2024. This is a 58-year-old female seen today in room 385. She is on oxygen at 2 L. She is not receiving any IV fluids. Today, respiratory was kind enough to repeat spirometry. Her FEV1, prebronchodilator, was 0.71 L. Her FEV1 postbronchodilator was 0.83 L. These lung function are very similar to the prio r lung function, that was done a few days ago. Clinically, the patient's respiratory status appears to be stable. She is satting well on 2 L. She is not manifesting any signs or symptoms of respiratory difficulty or distress. Current laboratory data includes a white count 6.1, hemoglobin 8, hematocrit 26.8, and a normal platelet count. Sodium 134, potassium 3.8, chlorides 99, CO2 30, BUN 78, and creatinine 3.24. Glucose Was 195. Calcium 8.3, Magnesium Is 1.9. Chest x-ray is essentially unchanged, and reveals evidence of cardiomegaly. Progress note dated February 25, 2024. 58-year-old female who apparently scheduled to have open heart surgery tomorrow, February 25. The patient is currently on 2 L of oxygen. No IV fluids. She has been relatively stable over the last 2 or 3 days. The patient had repeat spirometry yesterday, which showed a FEV1, postbronchodilator, of 0.83. Which is only slightly better than her previous FEV1. Certainly, she would be at high risk, for general anesthesia. Current laboratory data includes a white count 4.7, hemoglobin 8.1, hematocrit 26.8, and a normal platelet count. Coagulation studies are normal. Sodium 133, potassium 4.3, chloride 99, CO2 32, BUN 77, creatinine 3.20. Glucose is 87. AST is 50. ALT is 40. Albumin is 2.3. Chest x-ray shows cardiomegaly, with the persistent diffuse interstitial changes. Patient was reevaluated today on 03/10/2024, remains in the ICU, remains on room air, patient is now postoperative day #13 off pump CABG x 4 with sequential left internal mammary artery to left anterior descending coronary artery and diagonal coronary artery, reverse saphenous vein graft's to the posterior descending coronary artery and second obtuse marginal coronary artery, closure of the left atrial appendage with 35mm AtriCure clip patient remains in the ICU, doing fairly well, however continues to have bilateral pleural chest tubes in place, and significant amount of drainage noted in the last 24 hours and both tubes. 5 00 mL of drainage from the right-sided chest tube, and another 500 from the left-sided chest tube over the last 24 hours patient is not scheduled to undergo hemodialysis today. But she did have dialysis yesterday. Had 3 L removed yesterday. Clinically she is doing well, but considering her LV dysfunction her overall prognosis remains extremely poor and guarded. At this point no plans to remove any of the chest tubes considering her significant amount of drainage in the last 24 hours chest x-ray is reassuring there is evidence of tiny small biapical pneumothoraces. No air leak noted.WBC is 5.2 hemoglobin 8.7 electrolytes are normal BUN is 52 creatinine 3.54 The patient is seen today March 11, 2024 in follow-up in the intensive care unit. Postoperative day #14 following coronary bypass surgery. She is currently awake and alert in no acute distress. Sitting up in bed. She is maintaining O2 saturations in the 90s on room air. No IV fluids. She is to receive hemodialysis today with a goal of 2 L to be removed. Her bilateral chest tubes remain in place. The left chest tube drained another 200 mL of serous drainage while the right chest tube drained another 230 mL overnight. Chest x-ray reveals postsurgical changes with mild pulmonary edema. No significant change. Small left pneumothorax. She is status post 2 units of packed red blood cells this admission. Current hemoglobin 8.3. White count 5.3. Platelets 253. Sodium 130. Potassium 4.5. Bicarb 26. BUN 59. Creatinine 4.0. Glucose 189. She remains on DuoNeb ventilations, Symbicort. Working well with the incentive spirometer. Heparin for DVT prophylaxis. Remains on IV Bumex. Currently in a -1.2 L balance The patient is seen today March 12, 2024 in follow-up in the intensive care unit. Postoperative day #15. She is currently resting in bed. Awake and alert in no acute distress. She is maintaining good O2 saturations in the 90s on room air. The plan is for the right-sided chest tube to be removed today and possibly the left-sided 1 to be removed tomorrow. She is going for permacath today. She received hemodialysis yesterday with 2 L removed. Receiving hemodialysis again today with a goal of 2 L as well. Chest x-ray reveals surgical changes with mild pulmonary edema. Small left-sided pneumothorax. She has received 2 units of packed red blood cells this admission. Current hemoglobin 8.4. Platelets 219. White count 5.9. Sodium 130. Potassium 4.6. Bicarb 26. BUN 46. Crea tinine 3.31. Glucose 180. She remains on bronchodilators. Heparin for DVT prophylaxis. Transitioned to oral Demadex, currently in a -1.6 L balance. The patient is seen today March 13, 2024 in follow-up in the intensive care unit. Postoperative day #16. She is awake and alert in no acute distress. Resting in bed. Both of her chest tubes have been removed. Chest x-ray reveals a trace right and small left pneumothorax. No evidence of pleural effusion or focal consolidation. White count 5.8. Hemoglobin 8.7. Platelets 181. Sodium 128. Potassium 4.9. Bicarb 23. BUN 37. Creatinine 3.07. Glucose 262. She remains on DuoNeb ventilations, Symbicort. Heparin for DVT prophylaxis. Progress note dated March 14, 2024. The patient is seen today in room 352. She was in the intensive care unit yesterday. She was finally moved out. Today is postoperative day #17. Currently, the patient is on room air. She is not receiving any IV fluids. Both sided chest tubes have been removed. Current labs include a white count 6.2, hemoglobin 8.5, hematocrit 28.6, and a normal platelet count. Sodium 128, potassium 4, chlorides 97, CO2 27, BUN 30, creatinine 2.96. Glucose is 296. Calcium is 8. Chest x-ray shows a small left-sided pneumothorax. No evidence of right pneumothorax. Progress note dated March 15, 2024. The patient is seen today in room 352. The patient is having dialysis, with a goal of removal of 2.5 L of fluid. Her chest x-ray looks excellent. She is on room air. She is not receiving any IV fluids. The patient is feeling better. Current labs, white count 5.2, hemoglobin 8.5, hematocrit 28.2, and a normal platelet count. Sodium 128, potassium 4.5, chlorides 98, CO2 27, BUN 41, creatinine 3.79. Glucose 161. Calcium 7.8. Chest x-ray shows no significant acute cardiopulmonary disease. Progress note dated March 16, 2024. The patient is seen today in room 352. She is sitting up in a chair next to her hospital bed. She is not on any oxygen. She is not receiving any IV fluids. She is feeling much better. Current labs, white count 5.5, hemoglobin 9.2, hematocrit 29.7, and a platelet count 151,000. Sodium 130, potassium 4.1, chlorides 99, CO2 26, BUN 28, creatinine 2.78. She did receive dialysis yesterday. No chest x-ray today. Progress note dated March 17, 2024. 58-year-old female seen in room 352. The patient has not been in the hospital for 40 days. She is currently on room air. She is not receiving any IV fluids. She is sitting in a chair next to her hospital bed. Labs today include a white count 6.1, hemoglobin 8.5, hematocrit 28, platelet count is normal. Sodium 128, potassium 4.4, chlorides 98, CO2 26, BUN 36, creatinine 3.09. Glucose is 298. Calcium is 7.7. Chest x-ray today shows very tiny bilateral effusions. Objective - Vital Signs Vital signs: Vital Signs Temp 98.1 F 03/16/24 20:00 Pulse 92 03/17/24 07:44 Resp 16 03/17/24 04:00 BP 119/63 03/17/24 06:30 Pulse Ox 94 L 03/17/24 04:00 FiO2 21 03/15/24 07:38 Intake & Output 03/16/24 03/17/24 03/17/24 18:59 06:59 18:59 Intake Total 780 180 Output Total 200 Balance 580 180 Weight 80.2 kg 80.1 kg Intake: Oral 780 180 Output: Urine 200 Other: Voiding Method Bedside Commode Bedside Commode ABP, PAP, CO, CI - Last Documented Arterial Blood Pressure 139/47 Pulmonary Artery Pressure 36/20 Cardiac Output 4.2 Cardiac Index 2.3 - Exam No acute distress, oriented 3. The patient is currently on room air. HEENT examination is grossly unremarkable. Mucous membranes are moist. No oral lesions. Neck supple. Full range of motion. No adenopathy thyromegaly or neck vein distention. Cardiovascular examination reveals regular rhythm rate. S1-S2 normal. No S3 or S4. No discernible murmur noted. Heart rate 90 bpm. Lungs reveal scattered rhonchi and crackles. Breath sounds are otherwise equal. No wheezes. Saturation is 94 %. Abdomen soft bowel sounds are heard. No masses or tenderness. Extremities are intact. No cyanosis clubbing or edema. Skin is without rash or lesion. Neurologic examination is brief but nonfocal. - Labs CBC & Chem 7: 03/17/24 07:11 03/17/24 07:11 Labs: Abnormal Lab Results - Last 24 Hours (Table) 03/16/24 03/16/24 03/17/24 Range/Units 16:25 20:25 05:59 RBC (3.80-5.40) m/uL Hgb (11.4-16.0) gm/dL Hct (34.0-46.0) % MCHC (31.0-37.0) g/dL Sodium (137-145) mmol/L BUN (7-17) mg/dL Creatinine (0.52-1.04) mg/dL Glucose (74-99) mg/dL POC Glucose (mg/dL) 143 H 152 H 254 H (70-110) mg/dL Calcium (8.4-10.2) mg/dL 03/17/24 03/17/24 03/17/24 Range/Units 07:11 07:11 11:09 RBC 2.84 L (3.80-5.40) m/uL Hgb 8.5 L (11.4-16.0) gm/dL Hct 28.0 L (34.0-46.0) % MCHC 30.2 L (31.0-37.0) g/dL Sodium 128 L (137-145) mmol/L BUN 36 H (7-17) mg/dL Creatinine 3.09 H (0.52-1.04) mg/dL Glucose 232 H (74-99) mg/dL POC Glucose (mg/dL) 298 H (70-110) mg/dL Calcium 7.7 L (8.4-10.2) mg/dL Assessment and Plan Assessment: Severe triple-vessel coronary artery disease, S/P four-vessel off-pump bypass, postop day # 20. Acute non-ST segment elevation myocardial infarction. Acute hypoxemic respiratory failure secondary to CHF exacerbation. Possible community-acquired bibasilar pneumonia. Ischemic cardiomyopathy with an ejection fraction of 20 to 25%. History of severe mitral valve regurgitation. Normocytic, normochromic anemia. Acute kidney injury. Non-anion gap metabolic acidosis. COPD, severe, with an FEV1 that is 0.77 L or 27% of predicted. Diabetes mellitus. Hypertension. Hyperlipidemia. History of CVA. History of hypothyroidism. History of fibromyalgia. History of GERD. Previous history of tobacco use. Plan: Plan dated February 19, 2024. The patient continues on oxygen, at 3 L. She continues on Lasix drip at 10 mg an hour. The patient was boarded to have surgery today, but the surgery was canceled. The patient's lung function is very poor, with an FEV1 that is 0.77 L or 27% of predicted. Based on that number alone, the patient is at high increased operative risk. The patient continues on bronchodilators, as well as her other medications. Additional recommendations and suggestions are forthcoming. Labs, x-rays, medications are reviewed. We will continue to follow make recommendations. The bronchodilators that she is currently will be improved. Plan dated February 23, 2024. The patient appears to be much more stable from a respiratory status standpoint. She will have repeat PFTs. Labs, x-rays, medications are reviewed. Earlier spirometry showed an FEV1 that was 0.77 L or 27% of predicted. Labs, x-rays, and medications are all reviewed. We will continue to follow the patient, make recommendations along the way. Prognosis is guarded. She continues on bronchodilators. Plan dated February 24, 2024. The patient had repeat spirometry today. Her lung function are marginally improved, after bronchodilator. Previous FEV1 was .77 L. Today's postbronchodilator FEV1 is 0.83 L. The patient continues on appropriate bronchodilators. The patient's at high increased operative risk, based on her lung function. Having said that, on 2 L, appears relatively comfortable. Her saturations are in the low to mid 90s. Additional recommendations and suggestions are forthcoming. Prognosis is guarded. She apparently is scheduled to have open heart surgery on Monday, next week. Plan dated February 25, 2024. The patient is seen today in room 385. She continues on oxygen at 2 L. Labs, x-rays, and medications are reviewed. Apparently the patient is scheduled to have open heart surgery tomorrow. Her FEV1 is 0.77 L which is 27% of predicted. I repeat spirometry showed an FEV1 that was 0.83 L. Labs, x-rays, and medications are reviewed. We will continue to follow the patient, make recommendations along the way. Prognosis is currently guarded. Plan dated March 14, 2024. The patient has had a long hospitalization, now for 37 days. The patient had recurrent bilateral pleural effusions, with chest tubes in place, up until just a few days ago. Currently, the patient is on room air. She is not receiving any IV fluids. The patient was moved out of the intensive care unit yesterday. She is seen today room 352. Labs, x-rays, and medications are reviewed. We will continue to follow make recommendations along the way. Prognosis is guarded. Plan dated March 15, 2024. The patient is seen today in room 352. The patient continues to show daily improvement. She is on room air. Saturations are 97%. Labs, and x-rays, I reviewed. The patient is having hemodialysis today. The goal is to remove 2.5 L of fluid. The patient's chest x-ray is stable. No significant pleural effusions are noted. We will continue to follow make recommendations along the way. Plan dated March 16, 2024. The patient is doing much better. No chest x-ray today. Labs are reviewed. The patient is sitting in a chair next to her bed. She denies any significant shortness of breath, cough, wheezing, chest tightness, or phlegm production. Her most recent chest x-rays have looked very good. No evidence of recurrent pleural effusion. We will continue to follow make recommendations along the way. Prognosis is currently guarded. Plan dated March 17, 2024. The patient seems to be doing better each day. She is sitting in a chair next to her hospital bed. She is not on any supplemental oxygen. She is not on any IV fluids. Labs, and x-ray have been reviewed. Discharge planning underway. The patient denies any shortness of breath, cough, wheezing, chest tightness, or phlegm production. She also denies any chest pain or chest pressure. No GI or symptoms to mention. Time with Patient: Less than 30
[2024-03-17 16:17] LABS: Glucose,Whole Blood 184 mg/dL (70-110)
[2024-03-17] MEDS: HYDROcodone/APAP 5-325MG 1 EACH TAB PO PRN (16:55)
[2024-03-17 20:14] LABS: Glucose,Whole Blood 82 mg/dL (70-110)
[2024-03-18 05:36] LABS: HCT 28.8 % (34.0-46.0); HGB 8.7 gm/dL (11.4-16.0); Hypochromasia Marked; MCH 29.7 pg (25.0-35.0); MCHC 30.2 g/dL (31.0-37.0); MCV 98.2 fL (80.0-100.0); Macrocytosis Slight; Mean Platelet Volume 8.5; Platelet Count 155 k/uL (150-450); RBC 2.93 m/uL (3.80-5.40); RDW 14.9 % (11.5-15.5); WBC 5.6 k/uL (3.8-10.6)
[2024-03-18 05:42] LABS: Glucose,Whole Blood 302 mg/dL (70-110)
[2024-03-18 06:15] LABS: African American GFR (CKD) 16 (>60 ml/min/1.73 sqM); Anion Gap 4 mmol/L; Blood Urea Nitrogen 48 mg/dL (7-17); Calcium 7.8 mg/dL (8.4-10.2); Carbon Dioxide 26 mmol/L (22-30); Chloride 100 mmol/L (98-107); Glucose 255 mg/dL (74-99); Magnesium 1.8 mg/dL (1.6-2.3); Non-African American GFR(CKD) 14 (>60 ml/min/1.73 sqM); Potassium 5.3 mmol/L (3.5-5.1); Sodium 130 mmol/L (137-145)
--- NOTE | 2024-03-18 07:29 | XR ---
EXAMINATION TYPE: XR chest 2V DATE OF EXAM: 03/18/2024 COMPARISON: 03/17/2024 TECHNIQUE: PA and lateral views submitted. HISTORY: Postcardiac surgery FINDINGS: Mild interstitial pattern with small bilateral effusions and basilar consolidation. Mild cardiomegaly with postoperative changes. Right-sided PICC line stable. Dialysis catheter stable. No pneumothorax. Underlying COPD. Biapical pleural thickening. Loop recorder device incidentally noted. IMPRESSION: 1. COPD with small pleural effusions correlate for mild CHF. Underlying infiltrate not excluded.
[2024-03-18 08:39] LABS: Glucose,Whole Blood 254 mg/dL (70-110)
--- NOTE | 2024-03-18 08:53 | P.PN ---
Subjective Progress Note Date: 03/17/24 58 years old female with past medical history of multiple medical problems as below She has been incarcerated for 52 days, there is officer at bedside. Patient presents because of shortness of breath and exertional dyspnea has for the last 2 days, she states she hears herself wheezing when she lies down. Currently she is breathing quietly. She is complaining for mild chest pain on the left side, nonradiating nonspecific, feels much better now and very mild. She follow-up with her manager grocery Dr. Donal Herrera and livestock handler Dr. Babb who examined her about 2 months ago where she has some mild ulcer In the bottom of her right total This morning patient has low-grade fever 100.2 She is also mildly tachypneic around 22 She is saturating 93% on 2 L oxygen via nasal cannula Labs reviewed showing hemoglobin of 7.7, rest of CBC is unremarkable BMP liver enzymes not elevated. INR 0.9. Lactic 0.9 proBNP is elevated 25 100 EKG showing sinus rhythm at [address]-T changes, no left bundle branch block 03/16/2024 Patient is seen and evaluated sitting up in a chair next to her hospital bed. She is not on any oxygen. She is not receiving any IV fluids. She is feeling much better. Vital signs are reviewed and remained stable Current labs, white count 5.5, hemoglobin 9.2, hematocrit 29.7, and a platelet count 151,000. Sodium 130, potassium 4.1, chlorides 99, CO2 26, BUN 28, creatinine 2.78. She did receive dialysis yesterday. No chest x-ray today. -- Patient continues to be stable; awaits placement 03/17/2024 Patient is seen and evaluated sitting up in bedside chair; discussed with nursing staff; no specific complaint is reported Vital signs are reviewed and remained stable Lab review shows a WBC of 16 point, hemoglobin remains with platelet count of 151; sodium trended down to 128, Potassium of 4.4, BUNs/creatinine 36/3.09 and blood glucose of 232 --Patient remains stable and awaits transfer to skilled rehab once arrangements are made Objective - Vital Signs Vital signs: Vital Signs Temp 98.1 F 03/16/24 20:00 Pulse 92 03/17/24 07:44 Resp 16 03/17/24 04:00 BP 119/63 03/17/24 06:30 Pulse Ox 94 L 03/17/24 04:00 FiO2 21 03/15/24 07:38 Intake & Output 03/16/24 03/17/24 03/17/24 18:59 06:59 18:59 Intake Total 780 180 Output Total 200 Balance 580 180 Weight 80.2 kg 80.1 kg Intake: Oral 780 180 Output: Urine 200 Other: Voiding Method Bedside Commode Bedside Commode ABP, PAP, CO, CI - Last Documented Arterial Blood Pressure 139/47 Pulmonary Artery Pressure 36/20 Cardiac Output 4.2 Cardiac Index 2.3 - Exam GENERAL: The patient is alert and oriented x3, not in any acute distress. Ill appearance, pale appearing HEENT: Pupils are round and equally reacting to light. EOMI. Normocephalic, atraumatic. No pharyngeal erythema. No thyromegaly. CARDIOVASCULAR: S1 and S2 present. No murmurs, rubs, or gallops. PULMONARY: Decreased breath sounds bilaterally ABDOMEN: Soft, nontender, nondistended, normoactive bowel sounds. No palpable organomegaly. Saldaña catheter in place MUSCULOSKELETAL: No joint swelling or deformity. EXTREMITIES: No cyanosis, clubbing, 1+ bilateral pitting leg edema. NEUROLOGICAL: Gross neurological examination did not reveal any focal deficits. - Labs CBC & Chem 7: 03/18/24 04:53 03/18/24 04:53 Labs: Abnormal Lab Results - Last 24 Hours (Table) 03/16/24 03/16/24 03/16/24 Range/Units 08:20 11:27 16:25 RBC (3.80-5.40) m/uL Hgb (11.4-16.0) gm/dL Hct (34.0-46.0) % MCHC (31.0-37.0) g/dL Sodium 130 L (137-145) mmol/L BUN 28 H (7-17) mg/dL Creatinine 2.78 H (0.52-1.04) mg/dL Glucose 190 H (74-99) mg/dL POC Glucose (mg/dL) 341 H 143 H (70-110) mg/dL Calcium 7.7 L (8.4-10.2) mg/dL 03/16/24 03/17/24 03/17/24 Range/Units 20:25 05:59 07:11 RBC 2.84 L (3.80-5.40) m/uL Hgb 8.5 L (11.4-16.0) gm/dL Hct 28.0 L (34.0-46.0) % MCHC 30.2 L (31.0-37.0) g/dL Sodium (137-145) mmol/L BUN (7-17) mg/dL Creatinine (0.52-1.04) mg/dL Glucose (74-99) mg/dL POC Glucose (mg/dL) 152 H 254 H (70-110) mg/dL Calcium (8.4-10.2) mg/dL 03/17/24 Range/Units 07:11 RBC (3.80-5.40) m/uL Hgb (11.4-16.0) gm/dL Hct (34.0-46.0) % MCHC (31.0-37.0) g/dL Sodium 128 L (137-145) mmol/L BUN 36 H (7-17) mg/dL Creatinine 3.09 H (0.52-1.04) mg/dL Glucose 232 H (74-99) mg/dL POC Glucose (mg/dL) (70-110) mg/dL Calcium 7.7 L (8.4-10.2) mg/dL Assessment and Plan Assessment: Acute congestive heart failure with systolic dysfunction ejection fraction of 20-25 % New onset cardiomyopathy. Ischemic versus nonischemic. Acute hypoxemic respiratory failure multifactorial CHF, multifocal pneumonia. Multifocal pneumonia Non-ST elevated FL Acute kidney injury due to ATN secondary to cardiorenal. Patient is nonoliguric Acute on chronic anemia of chronic disease Acute urinary tract infection, urine culture showing skin or genital kwesi Chronic kidney disease stage II with acute kidney injury Urinary retention status post Saldaña catheter placement Diabetes mellitus type 2 Plan: In regards to hypoxemic respiratory failure, CHF exacerbation, continue patient on IV Lasix drip, continue to monitor intake and output continue with fluid restriction. Regards to multifocal pneumonia procalcitonin elevated continue. Completed ceftriaxone for 5 days on 02/13/2024 In regards to elevated troponin, continue current management medically, not a candidate for cardiac catheterization secondary to renal failure and anemia. Lexiscan stress test was done today.. In regards to diabetes mellitus Accu-Cheks ACHS continue patient on correctional insulin, NovoLog and Levemir In regards to anemia, continue to monitor H&H transfuse if hemoglobin less than 7, 1 unit of packed RBC ordered, fecal occult blood test ordered. Continue to titrate oxygen to room air.
--- NOTE | 2024-03-18 08:59 | P.DS ---
Providers Date of admission: 02/06/24 14:35 Expected date of discharge: 03/18/24 Attending physician: Devin Gillette Consults: 02/06/24 14:33 Consult Physician Routine Consulting Provider: Clinton Pitts Consult Reason/Comments: nstemi,chf Do you want consulting provider notified?: Yes 02/07/24 11:29 Consult Physician Urgent Consulting Provider: Kenia Sevilla Consult Reason/Comments: domonique Do you want consulting provider notified?: Yes 02/08/24 00:27 Consult Physician Routine Consulting Provider: Glenis Guerra Consult Reason/Comments: increased shortness of breath Do you want consulting provider notified?: Yes, Notify in am 02/16/24 12:49 Consult Physician Routine Consulting Provider: Devin Gillette Consult Reason/Comments: cabg Do you want consulting provider notified?: Yes 02/16/24 14:08 Consult Physician Routine Consulting Provider: Iva Rosario Consult Reason/Comments: dental clearence Do you want consulting provider notified?: Yes 02/25/24 08:28 Consult to Anesthesia Routine Consulting Provider: Anesthesia,Services Consult Reason/Comments: Cardiac Surgery Pre-Op 02/26/24 13:52 Consult Physician Routine Consulting Provider: Jovani Flores Consult Reason/Comments: medical management Do you want consulting provider notified?: Yes 03/10/24 07:57 Consult Physician Routine Consulting Provider: Wiley Blood Consult Reason/Comments: retention Do you want consulting provider notified?: Yes 03/12/24 08:57 Consult Physician Routine Consulting Provider: Nba Cook Consult Reason/Comments: Evaluation for inpatient rehab Do you want consulting provider notified?: Yes Primary care physician: Stated None Hospital Course: FINAL DIAGNOSIS: Triple-vessel coronary artery disease, non-STEMI this admission Acute heart failure with reduced ejection fraction, 20-25%, 35% on [place] New onset ischemic cardiomyopathy Moderate to severe mitral regurgitation on transthoracic echocardiogram, mild mitral regurgitation on [place] Acute on chronic kidney disease secondary to ATN secondary to cardiorenal syndrome, status post right femoral vein temporary dialysis catheter placement, status post right internal jugular permacath, receiving dialysis per nephrology Acute anemia Hypertension Hyperlipidemia, treated, cholesterol 150, LDL 72.8 Hypothyroid, TSH 1.73 Diabetes mellitus, hemoglobin A1c 7.1% CVA Hepatitis as a child CKD Previous tobacco dependence with recent cessation Severe COPD, preoperative FEV1 27% of predicted Previous methamphetamine use with recent cessation Family history of coronary artery disease with sister having multiple stents Postoperative acute blood loss anemia, expected Postoperative paroxysmal atrial fibrillation, currently sinus Postoperative urinary retention requiring re-initiation of barker, expected given pre-op retention Medical debility PRINCIPAL PROCEDURE: Off-pump CABG x 4 with sequential left internal mammary artery to left anterior descending coronary artery and diagonal coronary artery, reverse saphenous vein graft to the posterior descending coronary artery and second obtuse marginal coronary artery Closure of the left atrial appendage with 35mm AtriCure clip Placement of percutaneous right femoral intra-aortic balloon pump Transesophageal echocardiogram performed by anesthesia Ultrasound-guided right common femoral vein access and placement of central venous catheter for dialysis Ultrasound-guided right internal jugular vein access, placement of 19 cm tunneled dialysis catheter with fluoroscopic assistance under moderate conscious sedation completed by Dr. Barker HISTORY OF PRESENT ILLNESS: This is a 58-year-old female who does not follow outpatient with a primary care physician. Apparently the patient had noticed increased shortness of breath and intermittent chest pressure with activity. In addition she endorsed being overly tired with any activity. She also endorsed lower extremity edema. She presented to [facility] from [facility] for evaluation and treatment. At the time of admission lab work revealed hemoglobin 7.7, creatinine 2.73, troponin elevation to 2.2, and BNP 25,100. Chest x-ray demonstrated findings consistent with heart failure. She was admitted for treatment with consultation placed to cardiology with subsequent consultations to nephrology, gastroenterology, pulmonology. Transthoracic echocardiogram revealed decreased left ventricular systolic function with EF 20 to 25%, mild pulmonary hypertension, moderate to severe mitral regurgitation, mild aortic insufficiency, and small pericardial effusion. She was treated for 1 week with IV Rocephin. She underwent stress testing which demonstrated large area of fixed defect involving all segments of myocardium suggestive of remote ischemia, possible tiny area of stress-induced reversibility within the apex. She had been on continuous IV Lasix, and apparently every time the dose was decreased she had increased shortness of breath. She was recommended to undergo heart catheterization which was completed by Dr. Lane which revealed proximal LAD stenosis 90% with sequential tubular long lesion of 90% after the takeoff of the first diagonal branch which itself had an 80-90% blockage, 90% mid left circumflex stenosis, and RCA 50 to 60% with takeoff of the PDA demonstrating 95% stenosis. Due to these findings consultation was placed to Dr. Gillette from cardiothoracic surgery for revascularization recommendations. She was recommended to undergo surgical myocardial revascularization. The usual perioperative course was discussed in detail with the patient, all risks and benefits were explained, all questions were answered, and consent was obtained to proceed with surgery. She was kept inpatient due to her disease process, and scheduled for urgent surgery once she was medically optimized. HOSPITAL COURSE: The patient was brought to the preoperative area 02/26/24, prepared in the usual fashion, and subsequently taken to the operating room where Dr. Gillette performed four-vessel off-pump CABG. Upon completion of surgery the patient was transferred to the cardiovascular intensive care unit where she was recovered and monitored hemodynamically. She was extubated, all lines, tubes, and drips were discontinued when appropriate. She did continue to have worsening kidney function and dialysis catheter was placed with subsequent dialysis. In addition she experienced short burst of paroxysmal atrial fibrillation which was successfully treated with amiodarone, and urine retention requiring reinitiation of Barker catheter which was subsequently able to be discontinued. She was transferred to 3 S cardiac stepdown unit for further monitoring and rehabilitation. Her oxygen was titrated down, she continued to work with physical and occupational therapy, she was tolerating oral diet, her pain was controlled, and she was [facility]. She received written and verbal instruction regarding her medications, activity restrictions, signs and symptoms requiring physician notification, and follow-up appointments. Patient Condition at Discharge: Stable Plan - Discharge Summary Discharge Rx Participant: No New Discharge Prescriptions: New bisacodyL [Dulcolax] 10 mg RECTAL DAILY PRN suppositor PRN Reason: Constipation Tamsulosin [Flomax] 0.4 mg PO PC-SUPPER cap Insulin Detemir (Levemir) [Levemir] 20 unit SQ DAILY@0700 each Metoprolol Tartrate [Lopressor] 12.5 mg PO BID tab Magnesium Oxide [Mag-Ox] 400 mg PO DAILY tab INSULIN ASPART (NovoLOG) [NovoLOG (formulary)] 0 unit SQ ACHS each methocarbamoL [Robaxin-750] 750 mg PO QID PRN tab PRN Reason: Muscle Spasm Sennosides-Docusate Sodium [Senokot-S] 2 each PO HS tab Budesonide-Formot 160-4.5 Mcg [Symbicort 160-4.5 Mcg Inhaler] 2 puff INHALATION RT-BID each hydrALAZINE HCL [Apresoline] 40 mg PO Q6H tab Darbepoetin Arnaud [Aranesp] 40 mcg SQ Q7D each Aspirin 325 mg PO DAILY tab Torsemide [Demadex] 40 mg PO DAILY tab Ipratropium-Albuterol Nebulize [Duoneb 0.5 mg-3 mg/3 ml Soln] 3 ml INHALATION RT-Q2H PRN each PRN Reason: Shortness Of Breath Or Wheezing Heparin Sodium,Porcine (1 ml) [Heparin Sodium] 5,000 unit SQ Q8HR each Atorvastatin [Lipitor] 40 mg PO DAILY tab Nystatin 100,000 Unit/gm Powd [Mycostatin Powder] 1 applic TOPICAL TID PRN each PRN Reason: Perineal Discomfort INSULIN ASPART (NovoLOG) [NovoLOG (formulary)] 3 unit SQ AC-TID each Clopidogrel [Plavix] 75 mg PO DAILY tab Pantoprazole [Protonix] 40 mg PO AC-BRKFST tab Acetaminophen Tab [Tylenol] 650 mg PO Q4HR PRN tab PRN Reason: Fever And/ Or Pain HYDROcodone/APAP 5-325MG [[place] 5-325] 1 tab PO Q6HR PRN #24 tab PRN Reason: Pain Continue Ondansetron [Zofran] 4 mg PO BID PRN PRN Reason: Nausea traZODone HCL [Desyrel] 50 mg PO HS Levothyroxine Sodium [Synthroid] 175 mcg PO DAILY Discontinued Albuterol Nebulized [Ventolin Nebulized] 2.5 mg INHALATION RT-TID PRN PRN Reason: Shortness Of Breath Ciclesonide [Alvesco] 1 puff INHALATION RT-BID Insulin Regular [humuLIN R] See Protocol SQ QID Ondansetron Hcl 2mg/Ml Injection 4 mg INJ ONCE PRN PRN Reason: Nausea Atorvastatin [Lipitor] 20 mg PO HS Insulin Glargine [Lantus Vial] 8 unit SQ BID Insulin Regular [humuLIN R] 2 units SQ TID PRN PRN Reason: BS below 150, gets 2 units Acetaminophen Tab [Tylenol] 650 mg PO BID PRN PRN Reason: Pain Or Fever > 100.5 Discharge Medication List Levothyroxine Sodium [Synthroid] 175 mcg PO DAILY 02/02/22 [History] Ondansetron [Zofran] 4 mg PO BID PRN 02/06/24 [History] traZODone HCL [Desyrel] 50 mg PO HS 02/09/24 [History] Acetaminophen Tab [Tylenol] 650 mg PO Q4HR PRN tab 03/18/24 [Rx] Aspirin 325 mg PO DAILY tab 03/18/24 [Rx] Atorvastatin [Lipitor] 40 mg PO DAILY tab 03/18/24 [Rx] Budesonide-Formot 160-4.5 Mcg [Symbicort 160-4.5 Mcg Inhaler] 2 puff INHALATION RT-BID each 03/18/24 [Rx] Clopidogrel [Plavix] 75 mg PO DAILY tab 03/18/24 [Rx] Darbepoetin Arnaud [Aranesp] 40 mcg SQ Q7D each 03/18/24 [Rx] HYDROcodone/APAP 5-325MG [[place] 5-325] 1 tab PO Q6HR PRN #24 tab 03/18/24 [Rx] Heparin Sodium,Porcine (1 ml) [Heparin Sodium] 5,000 unit SQ Q8HR each 03/18/24 [Rx] INSULIN ASPART (NovoLOG) [NovoLOG (formulary)] 0 unit SQ ACHS each 03/18/24 [Rx] INSULIN ASPART (NovoLOG) [NovoLOG (formulary)] 3 unit SQ AC-TID each 03/18/24 [Rx] Insulin Detemir (Levemir) [Levemir] 20 unit SQ DAILY@0700 each 03/18/24 [Rx] Ipratropium-Albuterol Nebulize [Duoneb 0.5 mg-3 mg/3 ml Soln] 3 ml INHALATION RT-Q2H PRN each 03/18/24 [Rx] Magnesium Oxide [Mag-Ox] 400 mg PO DAILY tab 03/18/24 [Rx] Metoprolol Tartrate [Lopressor] 12.5 mg PO BID tab 03/18/24 [Rx] Nystatin 100,000 Unit/gm Powd [Mycostatin Powder] 1 applic TOPICAL TID PRN each 03/18/24 [Rx] Pantoprazole [Protonix] 40 mg PO AC-BRKFST tab 03/18/24 [Rx] Sennosides-Docusate Sodium [Senokot-S] 2 each PO HS tab 03/18/24 [Rx] Tamsulosin [Flomax] 0.4 mg PO PC-SUPPER cap 03/18/24 [Rx] Torsemide [Demadex] 40 mg PO DAILY tab 03/18/24 [Rx] bisacodyL [Dulcolax] 10 mg RECTAL DAILY PRN suppositor 03/18/24 [Rx] hydrALAZINE HCL [Apresoline] 40 mg PO Q6H tab 03/18/24 [Rx] methocarbamoL [Robaxin-750] 750 mg PO QID PRN tab 03/18/24 [Rx] Follow up Appointment(s)/Referral(s): Devin Gillette MD [STAFF PHYSICIAN] - 03/25/24 2:[address] MD [STAFF PHYSICIAN] - 1 Week (Please call for follow-up appointment upon discharge from [facility]) Shirlene Levi NPC [REFERRING] - 4 Weeks (Anemia, possible outpatient EGD and colonoscopy; Please call for follow-up appointment upon discharge from [facility]) Shauna Barker DO [STAFF PHYSICIAN] - 4 Weeks (Please call for follow-up appointment upon discharge from [facility]) [facility], [NON-STAFF] - 1 Week (Please call to set up service upon discharge from [facility]) Glenis Guerra MD [STAFF PHYSICIAN] - 1 Week (Please call for follow-up appointment upon discharge from [facility]) [facility] ,Cardiac [NON-STAFF] - 4 Weeks (You will receive a phone call in approximately 4-6 weeks for evaluation for cardiac rehab) Ambulatory/Diagnostic Orders: Complete Blood Count w/diff [LAB.AMB] Time Frame: 3 Days, Location: None Selected Comprehensive Metabolic Panel [LAB.AMB] Time Frame: 3 Days, Location: None Selected Activity/Diet/Wound Care/Special Instructions: Hemodialysis at [facility] on MWF @1200 - first outpatient treatment date Monday03/18/24. DISCHARGE INSTRUCTIONS: 1. No driving for 4 weeks, or until physician gives their ok. 2. The patient should sleep in their own bed, no medical bed needed. 3. Stairs are not an issue. If the bedroom is upstairs, it is advised that the patient go up at night and down in the morning for the first week. Go slowly, using handrail and take 1 step at a time. 4. CRISTOBAL hose are to be worn for 30 days post surgery or until physician discontinues. 5. Heart hugger is to be worn 100% of the time until physician discontinues.(except when showering) 6. No lifting, pushing, or pulling more than 10 pounds for 12 weeks. The physician will advise of any restriction changes. 7. The patient is expected to continue the prescribed walking program. 8. Continue pain control per as needed orders. 9. Continue with incentive spirometry and splinting/heart hugger until othe rwise directed by the physician. 10. Must shower daily using liquid antibacterial soap 11. Routine sternal incision care. No powders, lotions, ointments on incisions. No dressings are necessary on incisions unless they are draining. Dermabond tape is to remain on sternal incision until surgeon follow-up. 12. Please call surgeon/[facility] DIRECTOR for temp greater than 101 F or purulent drainage from incisions. 13. You should weigh yourself daily, record and bring log with you to follow up appointments. 14. All prescriptions given by surgeon for 30 days. Refills need to be filled through old coin dealer/primary care physician. 15. A Red armband has been placed on the patient. It should be worn for 30 days post discharge from surgery and will be removed by the cardiac surgeons. If an ER visit is necessary, please make sure the number on the Red armband is called before going to ER. 16. You have been referred to and are expected to begin Cardiac Rehab in approximately 4-6 weeks. 17. Quitting smoking is the most important step you can take to improve your health. For additional information and assistance to quit smoking, please call the [place] tobacco quit line (4-182-YEZE-NOW/ ) or online: [email or web address]-to-qu it-tobacco HOME HEALTH SERVICES TO PROVIDE: RN SKILLED HOME CARE SERVICES FOR POST-OP SURGICAL PATIENTS WITH THE FOLLOWING: Coronary Artery Bypass Surgery (CABG), Mitral Valve Replacement/Repair ( MVR), Aortic Valve Replacement/Repair (AVR) RN TO CONTINUE EDUCATION FROM ``ROAD TO A HEALTH HEART PATIENT EDUCATION MANUAL (GIVEN TO PATIENT IN THE HOSPITAL) MEDICATION RECONCILIATION WITH EDUCATION NEEDED ON FIRST HOME VISIT EMPHASIZE IMPORTANCE OF WEARING BREAST SUPPORT/HEART HUGGER ENCOURAGE USE OF INCENTIVE SPIROMETER 10 X EVERY HOUR WHILE AWAKE ENCOURAGE UTILIZATION OF LOWER EXTREMITY COMPRESSION STOCKINGS/CRISTOBAL HOSE and ELEVATE LEGS ABOVE LEVEL OF HEART WHILE AT REST. ENCOURAGE AMBULATION 3-5x/day INCREASING TOLERATES, WHILE AVOIDING EXTREMES IN TEMPERATURE FREQUENCY: RN TO OPEN THE PATIENT WITHIN 24 HOURS OF DISCHARGE FROM THE HOSPITAL WITH TELEHEALTH INSTALLED AT [facility], RN TO VISIT 2-3 X A WEEK FOR 4 WEEKS ESTABLISHED BY PATIENT NEEDS. LABORATORY: CBC, CMP TO BE DRAWN ON THE THIRD DAY HOME, (RAN STAT) FAX RESULTS TO [phone]. TELEHEALTH PARAMETERS: WEIGHT: NOTIFY MD OF WEIGHT GAIN OF 2 LBS IN 24 HOURS OR 5 LBS IN ONE WEEK HR: NOTIFY MD OF HR <55 BPM OR HR>100 BPM BP: NOTIFY MD IF BP <90/55 OR BP>140/100 O2 SAT: NOTIFY MD IF PO2<93% ON ROOM AIR SEND TELEHEALTH REPORT TO MANAGER DOCUMENT CONTROL AND CARDIOVASCULAR SURGEON THE FIRST WEEK OF CARE AND THEN BI-WEEKLY. PLEASE ADDITIONALLY COMMUNICATE ANY ABNORMALS AND NEW FINDINGS TO THE SURGEONS OFFICE. Discharge Disposition: TRANSFER TO SNF/ECF
[2024-03-18 12:03] LABS: Glucose,Whole Blood 128 mg/dL (70-110)
[2024-03-18 13:07] VITALS: RESP 18; TEMP 97.6
[2024-03-18 13:23] VITALS: BP 120/63; PULSE 67
--- NOTE | 2024-03-18 14:49 | P.PN ---
Subjective patient is seen for follow-up for acute kidney injury. started on hemodialysis 03/08/2024. Currently seen on hemodialysis. Tolerating treatment well. Volume status has improved. Objective - Vital Signs Vital signs: Vital Signs Temp 97.6 F 03/18/24 13:05 Pulse 67 03/18/24 13:23 Resp 18 03/18/24 13:05 BP 120/63 03/18/24 13:23 Pulse Ox 90 L 03/18/24 09:00 FiO2 21 03/18/24 09:00 Intake & Output 03/17/24 03/18/24 03/18/24 18:59 06:59 18:59 Intake Total 456 458 9976 Output Total 200 0 3400 Balance 160 550 -2064 Weight 90.5 kg Intake: Oral 360 550 816 Tube Feeding 120 Hemodialysis 400 Output: Urine 200 0 Hemodialysis 3400 Other: Voiding Method Bedside Commode Bedside Commode Bedside Commode # Voids 1 # Bowel Movements 1 1 ABP, PAP, CO, CI - Last Documented Arterial Blood Pressure 139/47 Pulmonary Artery Pressure 36/20 Cardiac Output 4.2 Cardiac Index 2.3 - Exam patient is awake, comfortable, no acute distress Alert oriented 3 Examination of the heart S1 and S2 Examination of the lungs bilateral breath sounds are heard, decreased breath sounds at the bases Abdomen is soft nontender Examination of lower extremities shows 1+ edema. [employer] exam grossly intact - Labs CBC & Chem 7: 03/18/24 04:53 03/18/24 04:53 Labs: Abnormal Lab Results - Last 24 Hours (Table) 03/17/24 03/18/24 03/18/24 Range/Units 16:15 04:53 04:53 RBC 2.93 L (3.80-5.40) m/uL Hgb 8.7 L (11.4-16.0) gm/dL Hct 28.8 L (34.0-46.0) % MCHC 30.2 L (31.0-37.0) g/dL Sodium 130 L (137-145) mmol/L Potassium 5.3 H (3.5-5.1) mmol/L BUN 48 H (7-17) mg/dL Creatinine 3.46 H (0.52-1.04) mg/dL Glucose 255 H (74-99) mg/dL POC Glucose (mg/dL) 184 H (70-110) mg/dL Calcium 7.8 L (8.4-10.2) mg/dL 03/18/24 03/18/24 03/18/24 Range/Units 05:41 08:13 12:01 RBC (3.80-5.40) m/uL Hgb (11.4-16.0) gm/dL Hct (34.0-46.0) % MCHC (31.0-37.0) g/dL Sodium (137-145) mmol/L Potassium (3.5-5.1) mmol/L BUN (7-17) mg/dL Creatinine (0.52-1.04) mg/dL Glucose (74-99) mg/dL POC Glucose (mg/dL) 302 H 254 H 128 H (70-110) mg/dL Calcium (8.4-10.2) mg/dL Assessment and Plan Assessment: 1. Acute kidney injury secondary to ATN secondary to cardiorenal syndrome. Creatinine as low as 0.98 dated March 01, 2022. No hydronephrosis noted on kidney ultrasound. Serologies negative. Started renal replacement therapy on 03/08/2024 due to significant volume overload and worsening renal function. 2. Acute on chronic systolic CHF with ejection fraction of 20 to 25% with moderate to severe mitral regurgitation and mild pulmonary hypertension. 3. Volume overload. 4. Anemia. Iron deficiency noted. Status post IV iron. On Aranesp. GI following. Status post blood transfusion this admission. 5. Metabolic acidosis secondary to acute kidney injury. On oral bicarb. Stable. 6. Hypervolemic hyponatremia. Also component of hypertonicity from hyperglycemia. Better. 7. Urinary retention status post Saldaña catheter placement. On Flomax. Saldaña catheter now removed. 8. Status post coronary artery bypass surgery x 4 on 02/26/2024 Plan: continue with hemodialysis post discharge.
--- NOTE | 2024-03-18 18:37 | P.PN ---
Subjective Progress Note Date: 03/18/24 The patient is seen today February 12, 2024 in follow-up on the selective care unit. She is currently sitting up in bed. Awake and alert in no acute distress. She is maintaining O2 saturation in the 90s on 3 L nasal cannula. She is afebrile. Hemodynamically stable. Today's chest x-ray reviewed reveals diffuse bilateral infiltrates with small effusion or early congestive heart failure. Hemoglobin 6.7. 1 unit of packed blood cells have been ordered. Platelets 362. White count 6.1. Sodium 131. Potassium 4.2. Bicarb 21. BUN 80. Creatinine 3.89. Glucose 286. She remains on. Antibiotics in the form of ceftriaxone. Remains on a Lasix drip at 5 mg an hour. Currently in a -178 mL balance. The patient is seen today February 13, 2024 in follow-up on the selective care unit. She is awake and alert in no acute distress. Sitting up in bed. Blood and urine cultures revealed no growth. White count 6.2. Hemoglobin 7.4. Platelets 01/05/1978. Sodium 133. Potassium 3.9. Bicarb 21. BUN 83. Creatinine 3.60. Glucose 154. She remains on a Lasix drip currently at 5 mg/h. She remains on a heparin drip. Receiving sodium bicarb tablets. Continued on bronchodilators. Continued on antibiotics in the form of ceftriaxone. She is currently in a negative balance. Voided 1 L today. The patient is seen today February 14, 2024 in follow-up on the selective care unit. She is currently sitting up in bed. Awake and alert in no acute distress. She is maintaining good O2 saturations in the 90s on 3 L/min per nasal cannula. She is afebrile. Hemodynamically stable. Follow-up chest x-ray continues to show diffuse bilateral infiltrate with small effusions. She is status post 1 unit of packed red blood cells this admission. Last hemoglobin 7.7. Sodium 135. Potassium 4.6. Bicarb 20. BUN 87. Creatinine 3.55. Glucose 358. She is continued on bronchodilators. Antibiotics in form of ceftriaxone. She remains on a Lasix drip at 10 mg/h. Receiving sodium bicarb tablets. Currently -688 mL balance. Nephrology is following. The patient is seen today February 15, 2024 in follow-up on the selective care unit. She is currently sitting up in bed awake and alert in no acute distress. She is maintaining O2 saturations in the mid 90s on 2 L/min per nasal cannula. She is afebrile. Hemodynamically stable. White count 6.8. Hemoglobin 8.6. Platelets 438. Sodium 135. Potassium 4.0. Bicarb 21. BUN 84. Creatinine 3.41. Glucose 171. She remains on a Lasix drip at 10 mg/h. Continued on a heparin drip. Plan to -1 L balance. Stress testing today reveals a large area of fixed defect involving all segments of the myocardium suggestive of remote ischemia. Could not exclude a tiny area of stress-induced reversibility within the apex. Reduced wall motion activity with ejection fraction of only 21%. Patient was seen and examined today on 02/16/2024 patient is feeling better to day, continues to diurese with a Lasix drip, remains in negative fluid balance, patient underwent cardiac catheterization today and she was found to have severe triple-vessel coronary artery disease, now she is being evaluated by surgery, patient does have severe LV dysfunction, she is definitely high surgical risk, but no absolute contraindication to surgery.Basic metabolic profile is normal BUN is 85 creatinine 3.58 however the patient may require hemodialysis, and she will need nephrology clearance she will also need a bedside spirometry/FEV1 for preoperative pulmonary clearance in the meantime we will continue diuretics/Lasix drip Patient was reevaluated today on 02/17/2024, remains on Lasix drip, remains in negative fluid balance, patient is very well aware that she had abnormal cardiac catheterization and now she is being evaluated for possible myocardial revascularization. Patient remains on oxygen at 2 L/min and her O2 sats is 97%, her PFT showed severe obstructive lung disease, however not severe enough to not consider myocardial revascularization if the patient is cleared by other consultants including nephrology and cardiology. Patient has been a smoker over the years, she had at least a 30-ppmy-iedn smoking history. Remind you patient had a PFT with chest x-ray still showing evidence of pulmonary edema which will definitely compromise her PFT will likely reflect more restriction than obstructive lung disease. WBC count today is 4.9 hemoglobin 7.7 electrolytes are normal BUN is 85 creatinine 3.59 Patient was reevaluated today on 02/18/2024, remains on Lasix drip, 10 mg/h, remains in constant negative fluid balance, chest x-ray today is definitely showing improvement but nonetheless her pulmonary edema is not completely resolved. Patient was being considered for CABG however the plan is presently on hold because of her overall pulmonary status and possibly the patient could benefit from more optimization of her congestive heart failure. In the meantime she seems to be doing better with the Lasix drip. Patient is also maintained on bronchodilators for her underlying COPD. Progress note dated February 19, 2024. The patient is seen today in room 385. She was scheduled to have bypass grafting today, but the surgery was canceled. She is currently on 3 L of oxygen by nasal cannula. She continues on a Lasix drip at 10 mg an hour. I did have the opportunity to review her lung function. Her FEV1 is 0.77 L or 27% of predicted. Based on that number alone, without having to evaluate the MVV, or the RV/TLC ratio, the patient is at high increased operative risk. Current laboratory data includes a white count 5.1, hemoglobin 8.3, hematocrit 26.6, and a platelet count of 403,000. Sodium 137, potassium 3.5, chlorides 101, CO2 28, BUN 82, and creatinine 3.34. Calcium is 8.2. Nasal screen was positive for non-MRSA staph. Chest x-ray is consistent with mild CHF. The patient is seen today February 20, 2024 in follow-up on the selective care unit. She is currently sitting up in bed. Awake and alert in no acute distress. She is maintaining O2 saturations in the 90s on 3 L/min per nasal cannula. She remains on a Lasix drip at 10 mg/h. Currently net -1 L balance. White count 4.8. Hemoglobin 7.8. Platelets 309. Sodium 132. Potassium 3.7. Bicarb 28. BUN 84. Creatinine 3.31. Glucose 240. She remains on bronchodilators. Heparin for DVT prophylaxis. She has been worked up for possible coronary artery bypass surgery once she recovers from her acute illness. The patient is seen today February 21, 2024 in follow-up on the selective care unit. She is awake and alert in no acute distress. Maintaining good O2 saturations in the 90s on 2 L/min per nasal cannula. She is continued on Lasix drip at 10 mg/h. This x-ray continues to show interstitial pulmonary edema with small left greater than right pleural effusions. She is status post 1 unit of packed red blood cells this admission. Current hemoglobin 8.2. Platelets 301. White count 5.5. Sodium 133. Potassium 3.9. Bicarb 30. BUN 84. Creatinine 3.05. Glucose 108. Remains on bronchodilators. Heparin for DVT prophylaxis. She is currently in a +159 ml balance. The patient is seen today February 22, 2024 in follow-up on the selective care unit. She is resting comfortably in bed. Awake and alert in no acute distress. Denies any chest pain. No worsening shortness of breath, cough or congestion. Maintaining good O2 saturations in the mid 90s on 2 L/min per nasal cannula. She is afebrile. Hemodynamically stable. She is maintained on DuoNeb inhalations, Pulmicort and Perforomist inhalations, Robitussin as needed. Heparin for DVT prophylaxis. She is continued on diuretics. Currently in a - 800 mL balance. Glucose 269. Progress note dated February 23, 2024. The patient is seen today in room 385. She is resting comfortably. She is on 2 L. She is not receiving any IV fluids. Current labs include a white count 4.8, hemoglobin 7.7, hematocrit 25.6, and a platelet count of 294,000. Sodium 131, potassium 4.3, chlorides 97, CO2 30, BUN 82, creatinine 3.32. Glucose is 164. Calcium 7.8, and magnesium 1.9. The nasal swab, on February 15, was positive for no n-MRSA, staph. A chest x-ray today shows similar multifocal airspace opacities. Progress note dated February 24, 2024. This is a 58-year-old female seen today in room 385. She is on oxygen at 2 L. She is not receiving any IV fluids. Today, respiratory was kind enough to repeat spirometry. Her FEV1, prebronchodilator, was 0.71 L. Her FEV1 postbronchodilator was 0.83 L. These lung function are very similar to the prior lung function, that was done a few days ago. Clinically, the patient's re spiratory status appears to be stable. She is satting well on 2 L. She is not manifesting any signs or symptoms of respiratory difficulty or distress. Current laboratory data includes a white count 6.1, hemoglobin 8, hematocrit 26.8, and a normal platelet count. Sodium 134, potassium 3.8, chlorides 99, CO2 30, BUN 78, and creatinine 3.24. Glucose Was 195. Calcium 8.3, Magnesium Is 1.9. Chest x-ray is essentially unchanged, and reveals evidence of cardiomegaly. Progress note dated February 25, 2024. 58-year-old female who apparently scheduled to have open heart surgery tomorrow, February 25. The patient is currently on 2 L of oxygen. No IV fluids. She has been relatively stable over the last 2 or 3 days. The patient had repeat spirometry yesterday, which showed a FEV1, postbronchodilator, of 0.83. Which is only slightly better than her previous FEV1. Certainly, she would be at high risk, for general anesthesia. Current laboratory data includes a white count 4.7, hemoglobin 8.1, hematocrit 26.8, and a normal platelet count. Coagulation studies are normal. Sodium 133, potassium 4.3, chloride 99, CO2 32, BUN 77, creatinine 3.20. Glucose is 87. AST is 50. ALT is 40. Albumin is 2.3. Chest x-ray shows cardiomegaly, with the persistent diffuse interstitial changes. Patient was reevaluated today on 03/10/2024, remains in the ICU, remains on room air, patient is now postoperative day #13 off pump CABG x 4 with sequential left internal mammary artery to left anterior descending coronary artery and diagonal coronary artery, reverse saphenous vein graft's to the posterior descending coronary artery and second obtuse marginal coronary artery, closure of the left atrial appendage with 35mm AtriCure clip patient remains in the ICU, doing fairly well, however continues to have bilateral pleural chest tubes in place, and significant amount of drainage noted in the last 24 hours and both tubes. 500 mL of drainage from the right-sided chest tube, and another 500 from the left-sided chest tube over the last 24 hours patient is not scheduled to undergo hemodialysis today. But she did have dialysis yesterday. Had 3 L removed yesterday. Clinically she is doing well, but considering her LV dysfunction her overall prognosis remains extremely poor and guarded. At this point no plans to remove any of the chest tubes considering her significant amount of drainage in the last 24 hours chest x-ray is reassuring there is evidence of tiny small biapical pneumothoraces. No air leak noted.WBC is 5.2 hemoglobin 8.7 electrolytes are normal BUN is 52 creatinine 3.54 The patient is seen today March 11, 2024 in follow-up in the intensive care unit. Postoperative day #14 following coronary bypass surgery. She is currently awake and alert in no acute distress. Sitting up in bed. She is maintaining O2 saturations in the 90s on room air. No IV fluids. She is to receive hemodialysis today with a goal of 2 L to be removed. Her bilateral chest tubes remain in place. The left chest tube drained another 200 mL of serous drainage while the right chest tube drained another 230 mL overnight. Chest x-ray reveals postsurgical changes with mild pulmonary edema. No significant change. Small left pneumothorax. She is status post 2 units of packed red blood cells this admission. Current hemoglobin 8.3. White count 5.3. Platelets 253. Sodium 130. Potassium 4.5. Bicarb 26. BUN 59. Creatinine 4.0. Glucose 189. She remains on DuoNeb ventilations, Symbicort. Working well with the incentive spirometer. Heparin for DVT prophylaxis. Remains on IV Bumex. Currently in a -1.2 L balance The patient is seen today March 12, 2024 in follow-up in the intensive care unit. Postoperative day #15. She is currently resting in bed. Awake and alert in no acute distress. She is maintaining good O2 saturations in the 90s on room air. The plan is for the right-sided chest tube to be removed today and possibly the left-sided 1 to be removed tomorrow. She is going for permacath today. She received hemodialysis yesterday with 2 L removed. Receiving hemodialysis again today with a goal of 2 L as well. Chest x-ray reveals surgical changes with mild pulmonary edema. Small left-sided pneumothorax. She has received 2 units of packed red blood cells this admission. Current hemoglobin 8.4. Platelets 219. White count 5.9. Sodium 130. Potassium 4.6. Bicarb 26. BUN 46. Creatinine 3.31. Glucose 180. She remains on bronchodilators. Heparin for DVT prophylaxis. Transitioned to oral Demadex, currently in a -1.6 L balance. The patient is seen today March 13, 2024 in follow-up in the intensive care unit. Postoperative day #16. She is awake and alert in no acute distress. Resting in bed. Both of her chest tubes have been removed. Chest x-ray reveals a trace right and small left pneumothorax. No evidence of pleural effusion or focal consolidation. White count 5.8. Hemoglobin 8.7. Platelets 181. Sodium 128. Potassium 4.9. Bicarb 23. BUN 37. Creatinine 3.07. Glucose 262. She remains on DuoNeb ventilations, Symbicort. Heparin for DVT prophylaxis. Progress note dated March 14, 2024. The patient is seen today in room 352. She was in the intensive care unit yesterday. She was finally moved out. Today is postoperative day #17. Currently, the patient is on room air. She is not receiving any IV fluids. Both sided chest tubes have been removed. Current labs include a white count 6.2, hemoglobin 8.5, hematocrit 28.6, and a normal platelet count. Sodium 128, potassium 4, chlorides 97, CO2 27, BUN 30, creatinine 2.96. Glucose is 296. Calcium is 8. Chest x-ray shows a small left-sided pneumothorax. No evidence of right pneumothorax. Progress note dated March 15, 2024. The patient is seen today in room 352. The patient is having dialysis, with a goal of removal of 2.5 L of fluid. Her chest x-ray looks excellent. She is on room air. She is not receiving any IV fluids. The patient is feeling better. Current labs, white count 5.2, hemoglobin 8.5, hematocrit 28.2, and a normal platelet count. Sodium 128, potassium 4.5, chlorides 98, CO2 27, BUN 41, creatinine 3.79. Glucose 161. Calcium 7.8. Chest x-ray shows no significant acute cardiopulmonary disease. Progress note dated March 16, 2024. The patient is seen today in room 352. She is sitting up in a chair next to her hospital bed. She is not on any oxygen. She is not receiving any IV fluids. She is feeling much better. Current labs, white count 5.5, hemoglobin 9.2, hematocrit 29.7, and a platelet count 151,000. Sodium 130, potassium 4.1, chlorides 99, CO2 26, BUN 28, creatinine 2.78. She did receive dialysis yesterday. No chest x-ray today. Progress note dated March 17, 2024. 58-year-old female seen in room 352. The patient has not been in the hospital for 40 days. She is currently on room air. She is not receiving any IV fluids. She is sitting in a chair next to her hospital bed. Labs today include a white count 6.1, hemoglobin 8.5, hematocrit 28, platelet count is normal. Sodium 128, potassium 4.4, chlorides 98, CO2 26, BUN 36, creatinine 3.09. Glucose is 298. Calcium is 7.7. Chest x-ray today shows very tiny bilateral effusions. On 03/18/2024, the patient is being seen for a follow-up. The patient has tripl e-vessel disease and the patient also has CHF with reduced LV function with an ejection fraction of 20 to 25%, the patient was also moderate to severe mitral regurgitation. The patient underwent an off-pump four-vessel bypass surgery and she required percutaneous intra-aortic balloon pump during the process which was ultimately weaned off and discontinued. The patient for the time being is doing well. No significant complaints. The patient is ready to get discharged to [facility] for further rehabilitation. Blood work today shows a WBC count of 5.6 with a hemoglobin 8.7 and a platelet count of 155. BUN is 48 with a creatinine of 3.4 and sodium is at 130. He is still requiring hemodialysis and hemodialysis session was done this morning. Most recent chest x-ray from today shows small pleural effusions and mild CHF changes. Otherwise, no significant airspace disease or consolidations. The patient is currently on room air oxygen with a pulse ox of 91 to 92%. No other significant issues overnight. She is resting comfortably in bed. Water comorbidities include hypertension, hyp erlipidemia, hypothyroidism and diabetes mellitus and she has had a previous history of CVA. She has severe COPD with an FEV1 of 27% of predicted and she has previous methamphetamine abuse. Her current cardiac rhythm is sinus. The patient was started on hemodialysis on 03/08/2024 and the patient will continue her day modalities as an outpatient basis. Objective - Vital Signs Vital signs: Vital Signs Temp 98.0 F 03/18/24 06:51 Pulse 67 03/18/24 08:20 Resp 17 03/18/24 08:16 BP 95/51 03/18/24 08:20 Pulse Ox 90 L 03/18/24 06:51 FiO2 21 03/15/24 07:38 Intake & Output 03/17/24 03/18/24 03/18/24 18:59 06:59 18:59 Intake Total 360 550 358 Output Total 200 0 Balance 160 550 358 Weight 90.5 kg Intake: Oral 360 550 358 Output: Urine 200 0 Other: Voiding Method Bedside Commode Bedside Commode Bedside Commode # Voids 1 # Bowel Movements 1 1 ABP, PAP, CO, CI - Last Documented Arterial Blood Pressure 139/47 Pulmonary Artery Pressure 36/20 Cardiac Output 4.2 Cardiac Index 2.3 - Exam No acute distress, oriented 3. The patient is currently on room air. HEENT examination is grossly unremarkable. Mucous membranes are moist. No oral lesions. Neck supple. Full range of motion. No adenopathy thyromegaly or neck vein distention. Cardiovascular examination reveals regular rhythm rate. S1-S2 normal. No S3 or S4. No discernible murmur noted. . Lungs reveal scattered rhonchi and crackles. Breath sounds are otherwise equal. No wheezes. S Abdomen soft bowel sounds are heard. No masses or tenderness. Extremities are intact. No cyanosis clubbing or edema. Skin is without rash or lesion. Neurologic examination is brief but nonfocal. - Labs CBC & Chem 7: 03/18/24 04:53 03/18/24 04:53 Labs: Abnormal Lab Results - Last 24 Hours (Table) 03/17/24 03/18/24 03/18/24 Range/Units 16:15 04:53 04:53 RBC 2.93 L (3.80-5.40) m/uL Hgb 8.7 L (11.4-16.0) gm/dL Hct 28.8 L (34.0-46.0) % MCHC 30.2 L (31.0-37.0) g/dL Sodium 130 L (137-145) mmol/L Potassium 5.3 H (3.5-5.1) mmol/L BUN 48 H (7-17) mg/dL Creatinine 3.46 H (0.52-1.04) mg/dL Glucose 255 H (74-99) mg/dL POC Glucose (mg/dL) 184 H (70-110) mg/dL Calcium 7.8 L (8.4-10.2) mg/dL 03/18/24 03/18/24 03/18/24 Range/Units 05:41 08:13 12:01 RBC (3.80-5.40) m/uL Hgb (11.4-16.0) gm/dL Hct (34.0-46.0) % MCHC (31.0-37.0) g/dL Sodium (137-145) mmol/L Potassium (3.5-5.1) mmol/L BUN (7-17) mg/dL Creatinine (0.52-1.04) mg/dL Glucose (74-99) mg/dL POC Glucose (mg/dL) 302 H 254 H 128 H (70-110) mg/dL Calcium (8.4-10.2) mg/dL Assessment and Plan Plan: Severe triple-vessel coronary artery disease, S/P four-vessel off-pump bypass, postop day # 21 Multivessel coronary artery disease and the patient is status post acute non-ST segment elevation myocardial infarction. Acute hypoxemic respiratory failure secondary to CHF exacerbation, improved and the patient is currently on room air oxygen Systolic heart failure with a underlying ischemic cardiomyopathy with an ejection fraction of 20 to 25%. History of severe mitral valve regurgitation. Normocytic, normochromic anemia. Acute kidney injury on top of chronic renal failure and the patient is dialysis dependent Non-anion gap metabolic acidosis, recovered COPD, severe, with an FEV1 that is 0.77 L or 27% of predicted. Diabetes mellitus. Hypertension. Hyperlipidemia. History of CVA. History of hypothyroidism. History of fibromyalgia. History of GERD. Previous history of tobacco use. Plan: Chest x-ray from today shows small bilateral pleural effusions. Titrate oxygen flow to maintain saturation above 90%. The patient is ranging between room air oxygen at 2 L/min nasal cannula. Continue hemodialysis per nephrology. Overall pulmonary status is stable. The patient is to be discharged to [facility] for further rehabilitation. The patient has no focal neurological deficits. Will continue hemodialysis. Continue aspirin and Plavix. Continue torsemide 40 mg p.o. daily. Continue metoprolol 12.5 mg p.o. twice a day and Levemir insulin 20 units in addition to his sliding scale insulin coverage. [place] for pain control. Continue Synthroid. Aggressive rehabilitation.
--- NOTE | 2024-03-19 06:26 | P.PN ---
Subjective Progress Note Date: 03/18/24 This is a pleasant 58 years old female with past medical history of multiple medical problems as below She has been incarcerated for 52 days, there is officer at bedside. Patient presents because of shortness of breath and exertional dyspnea has for the last 2 days, she states she hears herself wheezing when she lies down. Currently she is breathing quietly. She is complaining for mild chest pain on the left side, nonradiating nonspecific, feels much better now and very mild. She has occasional cough but no phlegm. Also she is complaining from upset stomach but no diarrhea or vomiting She complains from decreased urination but no dysuria or urgency. She has mild headache feels generally weak but no dizziness or blurry vision. She used to smoke half pack per day before she got incarcerated No alcohol or illicit drugs. She follow-up with her director of mobile marketing Dr. Donal Herrera and field agent Dr. Babb who examined her about 2 months ago where she has some mild ulcer In the bottom of her right total This morning patient has low-grade fever 100.2 She is also mildly tachypneic around 22 She is saturating 93% on 2 L oxygen via nasal cannula Labs reviewed showing hemoglobin of 7.7, rest of CBC is unremarkable BMP liver enzymes not elevated. INR 0.9. Lactic 0.9 proBNP is elevated 25 100 EKG showing sinus rhythm at [address]-T changes, no left bundle branch block 02/17/2024 --Patient is seen and evaluated in room at bedside; remains on Lasix drip, remains in negative fluid balance - patient underwent cardiac catheterization which revealed severe triple-vessel coronary artery disease and now she is being evaluated for possible myocardial revascularization. Patient remains on oxygen at 2 L/min and her O2 sats is 97%, her PFT showed severe obstructive lung disease, however not severe enough to not consider myocardial revascularization if the patient is cleared by other consultants including nephrology and cardiology. Patient has been a smoker over the years, she had at least a 40-[id number] smoking history. Remind you patient had a PFT with chest x-ray still showing evidence of pulmonary edema which will definitely compromise her PFT will likely reflect more restriction than obstructive lung disease. WBC count today is 4.9 hemoglobin 7.7 electrolytes are normal BUN is 85 creatinine 3.59 02/18/2024 Patient is seen and evaluated in room at bedside; sitting up in bed; ports stabl e breathing - patient underwent AFRICA which revealed aortic valve tricuspid and functioning normally. Mitral valve structurally normal with mild central secondary mitral regurgitation. Pulmonary vein flow has systolic dominance. Tricuspid valve appears to be normal with mild tricuspid regurgitation. Intra-atrial septum is intact with no evidence of PFO. Left atrial appendage free of clot. LV EF 35% with global hypokinesis. -- Patient is followed by cardiothoracic surgery and also nephrology. Nephrology not recommending any indication or need for hemodialysis. Patient remains on Lasix drip per nephrology. Patient has a negative fluid balance of 1322. Repeat blood work reveals hemoglobin is 7.9. BUN 82 creatinine 3.39. Mild elevation in liver function test. -Plan for surgery once clinically optimized 02/19/2024 Patient looks more awake than admission, sitting up in bed. [facility] officers at bedside Mentation at baseline. She talks freely. Denies chest pain or dyspnea at rest On presentation patient was found acute CHF and non-STEMI, workup showing triple-vessel coronary artery disease and patient will require bypass procedure with cardiothoracic surgery team on the case once medically optimized. Patient currently with fluid overload on Lasix drip, on admission it was 5 mg/h, currently increased to 10 mg/h. She is making around 1 L of urine output by yesterday. Saldaña catheter in place. She is also on aspirin 81 mg Hemoglobin 8.5, creatinine 3.3 compared to 2.7 on admission with baseline 0.9- 1.2. Liver enzymes mildly elevated since admission. 02/20/2024 Patient came from [facility] for an NSTEMI. Workup showing severe triple-vessel coronary artery disease currently being evaluated by cardiothoracic surgery team for possible cardiac bypass procedure. However she needs optimization and she is currently kept on IV Lasix 10 mg, creatinine went up 3.3 today. [facility] Paramedic recommended to continue with Lasix drip still tomorrow Patient diabetic, she is on Levemir 8 units twice daily, she is developing episodes of hypoglycemia we will going to lower the dose to 6 units twice daily She is also on aspirin 325 mg 02/21/2024 Patient continues to improve today, she is more energetic, less dyspneic Lasix drip switched to IV Lasix 60 mg twice daily Cardiothoracic surgery team with plan for valve replacement surgery on this coming Sunday 02/25 Sugars better controlled with no hyperglycemia on Levemir 6 units twice daily 02/22/2024 Patient breathing is stable, denies chest pain No new complaint Will go check breathing tomorrow Plan for cardiac surgery on Monday02/23/2024 Patient awake alert She feels more weak today Creatinine is up Plan for cardiac surgery early next week 02/24/2024 Patient feels weak No chest pain or dyspnea Patient anticipates surgery on Monday chief science officer at bedside 02/25/2024 Patient awake alert looks comfortable Generally weak Creatinine stable around 3.2 Plan for bypass cardiac surgery tomorrow, patient is agreeable to the current plan 02/26/2024 Patient is seen in follow-up today for coronary artery bypass with [facility]. Patient currently n.p.o. and preop. Will await surgical report. 02/27/2024 Patient is seen in follow-up this morning currently in the ICU with multiple medical consultations following. Patient is status post bypass yesterday currently maintained on 4 L via nasal cannula. Patient is reporting some shortness of breath although biggest concern is severe nausea. Patient is maintained on Reglan and Zofran as needed. Will make Reglan scheduled. Patient did have mediastinal chest tube removed and was taken off balloon pump most recently this morning. Patient continues on insulin drip and will continue monitoring sugars closely continue with current regimen and will transition off insulin drip once patient nausea is improved and tolerating diet. Patient is afebrile at this time. 02/28/2024 Patient is seen in follow-up today currently sitting up in the chair tolerating ice chips. Patient reports continues with intermittent nausea although significantly improved. Patient remains on 2 L and has been working on incentive spirometer. Encouraged at least 10 times every hour while awake. Patient was on insulin drip with history of diabetes and being transition to sliding scale. Patient was given a dose of long-acting and will make twice daily and recommend monitoring Accu-Cheks before meals and at bedtime and 2 AM for tight glycemic control. Kidney functions are stable with nephrology following. 02/29/2024 Patient is seen in follow-up continues in the ICU with multiple medical consultations following. Patient is currently hypotensive medications being adjusted and patient is receiving albumin. Patient reports to feeling exhausted and not sleeping very well. Patient's blood sugars being adjusted and using sliding scale. Continue with Levemir twice daily and will adjust accordingly. Blood sugars have been on the lower side and not requiring long-acting. Patient not eating much and continues with some nausea. 03/01/2024 Patient is seen in follow-up in the ICU currently sitting up in the chair. Patient remains on dopamine and also has been started on milrinone. Patient continues with some nausea although able to tolerate a little more intake and blood sugars have been elevated during the day will increase long-acting and continue with sliding scale and Accu-Cheks before meals and at bedtime. Patient continues with chest tubes as well as swans catheter at this time. Patient has been encouraged to continue using incentive spirometer at least 10 times every hour while awake. Recommend PT/OT therapy daily as patient is significantly weak and has had prolonged hospitalization. 03/04/2024 Patient is seen this morning and continues to be in the ICU with multiple medical consultations following. Patient continues with indwelling Saldaña catheter monitoring output closely as kidney functions remain elevated. Nephrology is following and discussing possible need for renal replacement therapy. Cardiology following and Imdur is being added. Patient continues with chest tubes and continued volume overload noted on imaging. Patient continues on oxygen via nasal and appears pale, will order CBC. Transfuse if 7 or less. 03/05/2024 Patient is seen in follow-up today continues in the ICU with medical consultations following. Patient is receiving a PICC line and also maintained on milrinone. Patient continues on IV Bumex as well with nephrology following having worsening kidney functions with a creatinine of 4.68 and a BUN of 78. Sodium on the lower side at 131. Magnesium within normal limits at 1.9. Blood sugars have been more elevated and will monitor closely with Accu-Cheks before meals and at bedtime as well as 2 AM and adjust insulins accordingly. Patient continues on 1 to 2 L and has been attempting to remove oxygen maintaining oxygen saturations of 90%. Encouraged to increase activity as tolerated and continued incentive spirometer use. 03/06/2024 Patient is seen this morning in the ICU currently sitting up in the chair continues with chest tubes and significant output noted. Patient maintained on IV Bumex with nephrology following discussing possible renal replacement. Patient's urine output has increased and improved and being monitored daily. Recommend follow-up labs in the a.m. Continue to monitor blood sugars and will titrate accordingly and adjust as needed. Encouraged oral intake as patient continues to report not much of an appetite. Patient appears pale and exhausted. Continued encouragement of incentive spirometer at least 10 times every hour while awake. 03/07/2024 Patient is seen in follow-up in the ICU with nephrology following closely and vascular surgery being consulted for dialysis catheter and patient will undergo renal replacement therapy. Patient had indwelling Saldaña catheter removed although was not voiding. Recommend monitoring strict intake and output. Pat ient continues with chest tubes. Patient is afebrile denies chest pain or worsening shortness of breath. Patient continues to report weakness and not much of an appetite. Patient is agreeable to dialysis and will follow-up with repeat labs. 03/08/2024 Patient is seen in follow-up today currently laying in bed undergoing hemodialysis. Patient had vascular surgery place a dialysis catheter and c reatinine is 5. Patient also having significant retention requiring indwelling Saldaña catheter to be replaced. Recommend to continue for now. Patient having first dialysis today and will also have repeat dialysis in the a.m. per nephrology. Patient is afebrile reports continued shortness of breath with no significant worsening in lower extremity swelling. Patient is maintained on IV Bumex twice daily. Follow-up on repeat labs. Continue to monitor blood sugars closely and continue current regimen and diet. Patient continues with chest tubes as well and we will follow-up on repeat chest x-ray. 03/18/2024 Patient is seen in follow-up this morning currently lethargic undergoing hemodialysis. [facility]/OT therapy. Patient has had prolonged hospitalization with continued weakness and would benefit from continued aggressive physical therapy in the outpatient setting. Patient will continue on hemodialysis and close outpatient follow-up with nephrology as well as cardiology. Continue monitoring Accu-Cheks ACHS and will adjust insulins accordingly. Patient is medically stable once cleared by CT surgery for discharge planning. Review of systems: Constitutional: reports of fatigue today, no fever, or chills Cardiovascular: reports of chest wall pain Respiratory: reports of shortness of breath with exertion, occasional cough GI: reports of intermittent nausea and improving, no vomiting, or diarrhea, not much of an appetite : reports of decreased urinary output Neurovascular: reports of generalized weakness All medications have been reviewed Physical exam: GENERAL: The patient is alert and oriented x3, pale, currently laying in bed well developed, thin built. Generally weak, elderly appearing, pale, ill- appearing HEENT: Pupils are round and equally reacting to light. EOMI. No scleral icterus. No conjunctival pallor. Normocephalic, atraumatic. No pharyngeal erythema. No thyromegaly. CARDIOVASCULAR: S1 and S2 muffled, heart hugger noted, chest tubes noted PULMONARY: Diminished breath sounds bilaterally, faint crackles. Tachypnea ABDOMEN: Soft, nontender, nondistended, normoactive bowel sounds. No palpable or ganomegaly. MUSCULOSKELETAL: No joint swelling or deformity. EXTREMITIES: No cyanosis, clubbing, 1+ bilateral pitting leg edema. NEUROLOGICAL: Gross neurological examination did not reveal any focal deficits. Diffusely weak SKIN: No rashes. no petechiae. Pale Assessment: Acute systolic CHF exacerbation, ejection fraction: 20 to 25% non-STEMI, ekg New left bundle branch block, secondary to triple-vessel coronary artery disease status post CABG Mild hypoxic respiratory failure, improving Acute kidney injury on chronic kidney disease, nonoliguric, with worsening function requiring hemodialysis catheter placed 03/07/2024 and hemodialysis initiated today 03/08/2024 Acute on chronic anemia of chronic disease, iron deficiency noted Acute urinary tract infection, urine culture showing skin or genital kwesi. 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 Patient has received insurance authorization and accepted at [facility] Continue with hemodialysis with close outpatient follow-up with nephrology Continue monitoring blood sugars ACHS and adjust insulins accordingly Home medications reviewed and resumed as appropriate Patient will need close outpatient follow-up with cardiology, nephrology, cardiothoracic surgery outpatient Patient with significant weakness and prolonged hospitalization agreeable to ECF on discharge. Patient is medically stable once cleared by CT surgery. Thank you kindly for this consultation. We will continue to follow during hospitalization. Patient will need resources to establish with a primary care provider on discharge The impression and plan of care has been dictated by Mandy Granda, Nurse Practitioner as directed. Dr. Jordyn MD I have performed a history and examination and MDM of this patient, discussed the same with the dictator, and agree with the dictator's assessment and plan as written ,documented as a scribe. Based on total visit time, I have performed more than 50% of the visit. Objective - Vital Signs Vital signs: Vital Signs Temp 97.6 F 03/18/24 13:05 Pulse 67 03/18/24 13:23 Resp 18 03/18/24 13:05 BP 120/63 03/18/24 13:23 Pulse Ox 90 L 03/18/24 09:00 FiO2 21 03/18/24 09:00 Intake & Output 03/18/24 03/18/24 03/19/24 06:59 18:59 06:59 Intake Total 550 1336 Output Total 0 3400 Balance 550 -2064 Weight 90.5 kg Intake: Oral 550 816 Tube Feeding 120 Hemodialysis 400 Output: Urine 0 Hemodialysis 3400 Other: Voiding Method Bedside Commode Bedside Commode # Voids 1 # Bowel Movements 1 1 ABP, PAP, CO, CI - Last Documented Arterial Blood Pressure 139/47 Pulmonary Artery Pressure 36/20 Cardiac Output 4.2 Cardiac Index 2.3 - Labs CBC & Chem 7: 03/18/24 04:53 03/18/24 04:53 Labs: Abnormal Lab Results - Last 24 Hours (Table) 03/18/24 03/18/24 Range/Units 08:13 12:01 POC Glucose (mg/dL) 254 H 128 H (70-110) mg/dL
--- NOTE | 2024-03-19 15:55 | CDI ---
Documentation Clarification Form Date: 03/19/2024 03:41:20 PM From: Rosemary Presley Phone: Admit Date: 02/06/2024 02:35:00 PM Patient Name: Mila Camilo Visit Number: [id number] Discharge Date: 03/18/2024 02:56:00 PM ATTENTION: The Clinical Documentation Specialists (CDI) and [facility] Coding Staff appreciate your assistance in clarifying documentation. Please respond to the clarification below the line at the bottom and electronically sign. The CDI & [facility] Coding staff will review the response and follow-up if needed. Please note: Queries are made part of the Legal Health Record. If you have any questions, please contact the author of this message via ITS. Dr. Hahn E Sheet There is documentation of: Chronic ulcers of the right big toe per H&P and Progress Notes Right great toe amputation per past Surgical Hx Notes Clarification regarding the etiology and severity of the wounds is requested. Patient history/risk factors: 58yo F, NSTEMI, CAD, ACSHF, ICM, MR, AI, TR, A/CKD, anima, PRATEEK, HTN, HLD, Hypothyroid, IDMI w compls, Hx CVA, COPD, former smoker/meth /ETOH abuse, Postoperative ABLA/PAF/urinary retentionw pre- opretention, medicaldebility Clinical Indicators: Wound assessment: no assessment documented Treatment: monitored Please clarify the status and or etiology and severity of the wound: [ ] Status post complete right great toe amputation Etiology: [x ] Non-pressure chronic ulcer due to diabetes [ ] Other, Please specify [ ] Unable to determine Severity: [ ] Limited to breakdown of skin [ ] With fat layer exposed [ ] Other, Please specify [ ] Unable to determine (Template Last Revised: December 2020) MTDD
--- NOTE | 2024-03-19 16:13 | CDI ---
Documentation Clarification Form Date: 03/19/2024 03:56:29 PM From: Rosemary Presley Phone: Admit Date: 02/06/2024 02:35:00 PM Patient Name: Mila Camilo Visit Number: [id number] Discharge Date: 03/18/2024 02:56:00 PM ATTENTION: The Clinical Documentation Specialists (CDI) and [facility] Coding Staff appreciate your assistance in clarifying documentation. Please respond to the clarification below the line at the bottom and electronically sign. The CDI & [facility] Coding staff will review the response and follow-up if needed. Please note: Queries are made part of the Legal Health Record. If you have any questions, please contact the author of this message via ITS. Dr. Marcelino Davies You patient has documented: Hx stage IV kidney disease per ED Note and Progress Notes Proceed withdialysis catheter placementand we will plan for first treatment HDin a.m. per Progress Note 03/07 Additional clarification regarding the stage of CKD is requested. History/Risk Factors: 58yo F, NSTEMI, CAD, ACSHF, ICM, MR, AI, TR, A/CKD, anima, PRATEEK, HTN, HLD, Hypothyroid, IDMI w compls, Hx CVA, COPD, former smoker/meth /ETOH abuse, Postoperative ABLA/PAF/urinary retention w pre-op retention, medical debility 02/18 creatinine 3.3 compared to 2.7 on admission with baseline 0.9-1.2 Clinical Indicators: BUN: 02/05 56 03/07 88 CR: 02/05 2.73 03/07 4.97 gFR : 02/05 18-21 03/07 9-10 Treatment: 03/07 placement of central venous catheterfordialysis 03/12 placementof a 19 cmtunneled dialysis catheterwithfluoroscopic Please clarify the stage of the CKD and evolution status, if known: [ x ] CKD Stage 4 [ ] ESRD [ ] POA [ ] Not POA [ ] Other, please specify [ ] Unable to determine Reference: National Kid[employer] Stage 1 eGFR = 90 and kidney damage for =3 months Stage 2 eGFR 60-89 and kidney damage for =3 months Stage 3a eGFR 45-59 and kidney damage for =3 months Stage 3b eGFR 30-44 and kidney damage for =3 months Stage 4 eGFR 15-29 r and kidney damage for =3 months Stage 5 eGFR <15 and kidney damage for =3 months (Template Last revised: October 2023) MTDD
--- NOTE | 2024-03-20 14:28 | CDI ---
Documentation Clarification Form Date: 03/20/2024 02:20:40 PM From: Rosemary Presley Phone: Admit Date: 02/06/2024 02:35:00 PM Patient Name: Mila Camilo Visit Number: [id number] Discharge Date: 03/18/2024 02:56:00 PM ATTENTION: The Clinical Documentation Specialists (CDI) and [facility] Coding Staff appreciate your assistance in clarifying documentation. Please respond to the clarification below the line at the bottom and electronically sign. The CDI & [facility] Coding staff will review the response and follow-up if needed. Please note: Queries are made part of the Legal Health Record. If you have any questions, please contact the author of this message via ITS. Dr. Hahn E Sheet Per the previous query, Pt has right great toe non-pressurechroniculcer due to diabetes in addition to a partially amputated Rt great toe. Additional specificity regarding the severity of the wound is requested. Patient history/risk factors: 58yo F,NSTEMI,CAD, ACSHF, ICM, MR, AI, TR, A/CKD, anemia, PRATEEK,HTN,HLD,Hypothyroid, IDMI w complications,Hx CVA,COPD,former smoker/meth /ETOH abuse,PostoperativeABLA/PAF/urinary retentionw pre-opretention, medicaldebility Clinical Indicators: Woundassessment:noassessmentdocumented Treatment: monitored Please clarify the severity of the wound: [ x ] Limited to breakdown of skin [ ] With fat layer exposed [ ] Other, Please specify [ ] Unable to determine (Template Last Revised: December 2020) MTDD
== END 2024-03-18 14:56 | DRG 233 ==
LOC: EC 11:38 → 1SOBS 14:35 → EEVIPCON 14:35 → 1SOBS 15:28 → 3SCARD 16:35 → 2SICU 02-26 06:02 → 3SCARD 03-13 14:11 → 4SSUR 03-18 00:30
PROVIDERS: ADMIT Thoracic Surgery (Cardiothoracic Vascular Surgery); ATTEND Thoracic Surgery (Cardiothoracic Vascular Surgery)
PROC: 30233N1 Transfusion of Nonautologous Red Blood Cells into Peripheral Vein, Percutaneous Approach (ICD-10-PCS; 2024-02-12)
PROC: 4A023N7 Measurement of Cardiac Sampling and Pressure, Left Heart, Percutaneous Approach (ICD-10-PCS; 2024-02-16)
PROC: B2111ZZ Fluoroscopy of Multiple Coronary Arteries using Low Osmolar Contrast (ICD-10-PCS; 2024-02-16)
PROC: B2151ZZ Fluoroscopy of Left Heart using Low Osmolar Contrast (ICD-10-PCS; 2024-02-16)
PROC: 06BQ4ZZ Excision of Left Saphenous Vein, Percutaneous Endoscopic Approach (ICD-10-PCS; 2024-02-26)
PROC: 5A02210 Assistance with Cardiac Output using Balloon Pump, Continuous (ICD-10-PCS; 2024-02-26)
PROC: B24BZZ4 Ultrasonography of Heart with Aorta, Transesophageal (ICD-10-PCS; 2024-02-26)
PROC: 02L70CK Occlusion of Left Atrial Appendage with Extraluminal Device, Open Approach (ICD-10-PCS; 2024-02-26)
PROC: 02HQ32Z Insertion of Monitoring Device into Right Pulmonary Artery, Percutaneous Approach (ICD-10-PCS; 2024-02-26)
PROC: 4A133B3 Monitoring of Arterial Pressure, Pulmonary, Percutaneous Approach (ICD-10-PCS; 2024-02-26)
PROC: 4A1239Z Monitoring of Cardiac Output, Percutaneous Approach (ICD-10-PCS; 2024-02-26)
PROC: 0211093 Bypass Coronary Artery, Two Arteries from Coronary Artery with Autologous Venous Tissue, Open Approach (ICD-10-PCS; principal; 2024-02-26 08:00)
PROC: 02110Z9 Bypass Coronary Artery, Two Arteries from Left Internal Mammary, Open Approach (ICD-10-PCS; 2024-02-26 08:00)
PROC: 3E033XZ Introduction of Vasopressor into Peripheral Vein, Percutaneous Approach (ICD-10-PCS; 2024-02-29)
PROC: 5A1D70Z Performance of Urinary Filtration, Intermittent, Less than 6 Hours Per Day (ICD-10-PCS; 2024-03-07)
PROC: 06HY33Z Insertion of Infusion Device into Lower Vein, Percutaneous Approach (ICD-10-PCS; 2024-03-07)
PROC: 0JH63XZ Insertion of Tunneled Vascular Access Device into Chest Subcutaneous Tissue and Fascia, Percutaneous Approach (ICD-10-PCS; 2024-03-12)
PROC: 02HV33Z Insertion of Infusion Device into Superior Vena Cava, Percutaneous Approach (ICD-10-PCS; 2024-03-12)
DX: I13.0 Hypertensive heart and chronic kidney disease with heart failure and stage 1 through stage 4 chronic kidney disease, or unspecified chronic kidney disease (principal); I21.4 Non-ST elevation (NSTEMI) myocardial infarction; I50.23 Acute on chronic systolic (congestive) heart failure; J96.01 Acute respiratory failure with hypoxia; N17.0 Acute kidney failure with tubular necrosis; R57.0 Cardiogenic shock; N18.6 End stage renal disease; G72.81 Critical illness myopathy; I31.39 Other pericardial effusion (noninflammatory); E87.1 Hypo-osmolality and hyponatremia; N39.0 Urinary tract infection, site not specified; D62 Acute posthemorrhagic anemia; E10.621 Type 1 diabetes mellitus with foot ulcer; E10.42 Type 1 diabetes mellitus with diabetic polyneuropathy; I27.22 Pulmonary hypertension due to left heart disease; E10.649 Type 1 diabetes mellitus with hypoglycemia without coma; J44.9 Chronic obstructive pulmonary disease, unspecified; E10.65 Type 1 diabetes mellitus with hyperglycemia; F15.11 Other stimulant abuse, in remission; I25.110 Atherosclerotic heart disease of native coronary artery with unstable angina pectoris; Z79.4 Long term (current) use of insulin; Z89.411 Acquired absence of right great toe; I48.0 Paroxysmal atrial fibrillation; L97.511 Non-pressure chronic ulcer of other part of right foot limited to breakdown of skin; Z99.2 Dependence on renal dialysis; E10.22 Type 1 diabetes mellitus with diabetic chronic kidney disease; F10.11 Alcohol abuse, in remission; D63.1 Anemia in chronic kidney disease; E88.09 Other disorders of plasma-protein metabolism, not elsewhere classified; Z68.30 Body mass index [BMI] 30.0-30.9, adult; D50.9 Iron deficiency anemia, unspecified; E66.9 Obesity, unspecified; I08.3 Combined rheumatic disorders of mitral, aortic and tricuspid valves; E03.9 Hypothyroidism, unspecified; I25.5 Ischemic cardiomyopathy; K21.9 Gastro-esophageal reflux disease without esophagitis; R00.1 Bradycardia, unspecified; R33.9 Retention of urine, unspecified; Z86.19 Personal history of other infectious and parasitic diseases; G89.29 Other chronic pain; M50.30 Other cervical disc degeneration, unspecified cervical region; M51.36 Other intervertebral disc degeneration, lumbar region; I44.7 Left bundle-branch block, unspecified; K30 Functional dyspepsia; E78.5 Hyperlipidemia, unspecified; M79.7 Fibromyalgia; Z79.82 Long term (current) use of aspirin; I25.2 Old myocardial infarction; Z86.73 Personal history of transient ischemic attack (TIA), and cerebral infarction without residual deficits; Z95.818 Presence of other cardiac implants and grafts; Z86.14 Personal history of Methicillin resistant Staphylococcus aureus infection; Z79.890 Hormone replacement therapy; Z79.899 Other long term (current) drug therapy; Z82.49 Family history of ischemic heart disease and other diseases of the circulatory system; Z88.2 Allergy status to sulfonamides; Z79.51 Long term (current) use of inhaled steroids; Z11.52 Encounter for screening for COVID-19; Z87.891 Personal history of nicotine dependence; Z87.440 Personal history of urinary (tract) infections; Z87.448 Personal history of other diseases of urinary system
CPT/HCPCS: 36415; 36430; 36558; 36573; 36600; 51798; 70486; 71045; 71046; 71250; 76770; 76937; 77001; 78452; 80048; 80053; 80061; 80074; 81001; 82150; 82330; 82533; 82728; 82805; 83036; 83540; 83550; 83605; 83690; 83735; 83880; 84100; 84145; 84165; 84443; 84484; 85025; 85027; 85520; 85610; 85730; 86038; 86160; 86162; 86225; 86255; 86334; 86335; 86705; 86706; 86850; 86891; 86900; 86901; 86920; 87040; 87070; 87086; 87340; 87517; 87636; 90935; 93005; 93017; 93306; 93308; 93312; 93320; 93325; 93458; 93880; 93970; 94150; 94640; 94760; 96365; 96366; 96375; 96376; 99291

== ENCOUNTER 2024-06-30 07:48 | Inpatient (IN) | payer MEDICARE, OTHER ==
--- NOTE | 2024-06-30 07:58 | ED ---
General Adult HPI - General Chief complaint: Shortness of Breath Stated complaint: SOB Time Seen by Provider: 06/30/24 07:51 Source: patient, EMS, RN notes reviewed Mode of arrival: EMS Limitations: no limitations - History of Present Illness Initial comments: Patient is a 59-year-old female present to the emergency department with concerns with difficulty in breathing. Onset of symptoms was a couple of weeks ago, worse the past few days. Patient did have COVID-19 infection 2 weeks ago. No recent fevers. Patient does have orthopnea and edema. Patient is a dialysis patient. Cough has occasional clear sputum. Has history of COPD as well. Pat ient did receive some relief in dyspnea with nebulizer treatment in route. - Related Data Home Medications Medication Instructions Recorded Confirmed Levothyroxine Sodium [Synthroid] 175 mcg PO DAILY 02/02/22 02/06/24 Ondansetron [Zofran] 4 mg PO BID PRN 02/06/24 02/06/24 traZODone HCL [Desyrel] 50 mg PO HS 02/09/24 02/09/24 Previous Rx's Medication Instructions Recorded Acetaminophen Tab [Tylenol] 650 mg PO Q4HR PRN tab 03/18/24 Aspirin 325 mg PO DAILY tab 03/18/24 Atorvastatin [Lipitor] 40 mg PO DAILY tab 03/18/24 Budesonide-Formot 160-4.5 Mcg 2 puff INHALATION RT-BID each 03/18/24 [Symbicort 160-4.5 Mcg Inhaler] Clopidogrel [Plavix] 75 mg PO DAILY tab 03/18/24 Darbepoetin Arnaud [Aranesp] 40 mcg SQ Q7D each 03/18/24 HYDROcodone/APAP 5-325MG [Lulu 1 tab PO Q6HR PRN #24 tab 03/18/24 5-325] Heparin Sodium,Porcine (1 ml) 5,000 unit SQ Q8HR each 03/18/24 [Heparin Sodium] INSULIN ASPART (NovoLOG) [NovoLOG 0 unit SQ ACHS each 03/18/24 (formulary)] INSULIN ASPART (NovoLOG) [NovoLOG 3 unit SQ AC-TID each 03/18/24 (formulary)] Insulin Detemir (Levemir) [Levemir] 20 unit SQ DAILY@0700 each 03/18/24 Ipratropium-Albuterol Nebulize 3 ml INHALATION RT-Q2H PRN each 03/18/24 [Duoneb 0.5 mg-3 mg/3 ml Soln] Magnesium Oxide [Mag-Ox] 400 mg PO DAILY tab 03/18/24 Metoprolol Tartrate [Lopressor] 12.5 mg PO BID tab 03/18/24 Nystatin 100,000 Unit/gm Powd 1 applic TOPICAL TID PRN each 03/18/24 [Mycostatin Powder] Pantoprazole [Protonix] 40 mg PO AC-BRKFST tab 03/18/24 Sennosides-Docusate Sodium 2 each PO HS tab 03/18/24 [Senokot-S] Tamsulosin [Flomax] 0.4 mg PO PC-SUPPER cap 03/18/24 Torsemide [Demadex] 40 mg PO DAILY tab 03/18/24 bisacodyL [Dulcolax] 10 mg RECTAL DAILY PRN suppositor 03/18/24 hydrALAZINE HCL [Apresoline] 40 mg PO Q6H tab 03/18/24 methocarbamoL [Robaxin-750] 750 mg PO QID PRN tab 03/18/24 Allergies Allergy/AdvReac Type Severity Reaction Status Date / Time Sulfa (Sulfonamide Allergy see comment Verified 06/30/24 07:53 Antibiotics) Review of Systems ROS Statement: Those systems with pertinent positive or pertinent negative responses have been documented in the HPI. ROS Other: All systems not noted in ROS Statement are negative. Constitutional: Denies: fever Eyes: Denies: eye pain ENT: Denies: ear pain Respiratory: Reports: as per HPI, cough, dyspnea Cardiovascular: Reports: dyspnea on exertion, orthopnea, edema Genitourinary: Denies: dysuria Musculoskeletal: Denies: back pain Past Medical History Past Medical History: Coronary Artery Disease (CAD), Chest Pain / Angina, Heart Failure, COPD, CVA/TIA, Diabetes Mellitus, Fibromyalgia, GERD/Reflux, Hyperlipidemia, Hypertension, Liver Disease, Myocardial Infarction (NM), Osteoarthritis (OA), Renal Disease, Thyroid Disorder Additional Past Medical History / Comment(s): NEUROPATHY BILATERAL FEET, DDD NE CK AND LOWER BACK, hiatal hernia, states no need for BP med anymore(gets orthostatic hypotension-has "[employer]tronic heart loop monitor"), hx hepatitis as a kid, hx fractrured left wrist, hx stroke 03/03/22-problems with balance since. History of Any Multi-Drug Resistant Organisms: MRSA Date of last positivie culture/infection: 2017 MDRO Source:: stomach Past Surgical History: Adenoidectomy, Back Surgery, Bladder Surgery, Hysterectomy, Orthopedic Surgery, Tonsillectomy, Tubal Ligation Additional Past Surgical History / Comment(s): Debridement right foot, PICC line placed and later removed, bladder suspension, exploratory laparotomy, right great toe amputation, pins right in foot, cataracts removed, left wrist ORIF, loop heart monitor placed 02/2022. Past Anesthesia/Blood Transfusion Reactions: No Reported Reaction, Motion Sickness Additional Past Anesthesia/Blood Transfusion Reaction / Comment(s): . Type of Cardiac Device: Loop Past Psychological History: Anxiety, Depression Smoking Status: Former smoker Past Alcohol Use History: Occasional Past Drug Use History: Marijuana, Methamphetamine - Past Family History Sister(s) Family Medical History: Coronary Artery Disease (CAD) Mother Family Medical History: Pulmonary Embolus Additional Family Medical History / Comment(s): . Father Additional Family Medical History / Comment(s): at 26yrs old--accident at work General Exam Limitations: no limitations General appearance: alert, in no apparent distress Head exam: Present: normocephalic Eye exam: Present: normal appearance Neck exam: Present: normal inspection Respiratory exam: Present: rales Cardiovascular Exam: Present: regular rate, normal rhythm GI/Abdominal exam: Present: soft. Absent: tenderness Extremities exam: Present: pedal edema. Absent: calf tenderness Neurological exam: Present: alert Psychiatric exam: Present: normal affect, normal mood Skin exam: Present: normal color Course Vital Signs 06/30/24 06/30/24 06/30/24 07:50 08:02 08:14 Temperature 97.6 F Pulse Rate 86 98 98 Respiratory 18 Rate Blood Pressure 137/83 O2 Sat by Pulse 96 Oximetry EKG Findings - EKG Results: EKG: interpreted by ERMD (Access. Left bundle branch block. Septal Q waves. T wave inversion in V6.), sinus rhythm Medical Decision Making - Medical Decision Making Computer system unavailable to review old EKG. Was pt. sent in by a medical professional or institution (, PA, SATURATOR OPERATOR, urgent care, hospital, or long-term...) When possible be specific @ -No Did you speak to anyone other than the patient for history (EMS, parent, family, police, friend...)? What history was obtained from this source @ -No Did you review nursing and triage notes (agree or disagree)? Why? @ -I reviewed and agree with nursing and triage notes Were old charts reviewed (outside hosp., previous admission, EMS record, old EKG, old radiological studies, urgent care reports/EKG's, long-term records)? Report findings @ -Previous chest x-ray reviewed with some effusions however not as severe as today. Differential Diagnosis (chest pain, altered mental status, abdominal pain women, abdominal pain men, vaginal bleeding, weakness, fever, dyspnea, syncope, headache, dizziness, GI bleed, back pain, seizure, CVA, palpatations, mental h ealth, musculoskeletal)? @ -Differential Dyspnea: Coronary syndrome, arrhythmia, tamponade, asthma, COPD, pulmonary embolism, pneumonia, pneumothorax, pulmonary effusion, anaphylaxis, diabetic ketoacidosis, flailed chest, pulmonary contusion, diaphragmatic rupture, anemia, neuromuscular, this is not meant to be an all-inclusive list. EKG interpreted by me (3pts min.). @ -As above X-rays interpreted by me (1pt min.). @ -Chest x-ray does show some bilateral increased interstitial markings/in filtrate as well as effusions. There is also dialysis catheter in place. CT interpreted by me (1pt min.). @ -None done U/S interpreted by me (1pt. min.). @ -None done What testing was considered but not performed or refused? (CT, X-rays, U/S, labs)? Why? @ -None What meds were considered but not given or refused? Why? @ -None Did you discuss the management of the patient with other professionals (professionals i.e. DrStephany, PA, SATURATOR OPERATOR, lab, RT, psych nurse, social service director, cementing machine operator, teacher, navigation officer, case worker)? Give summary @ -Was discussed with Dr. Case who will admit covering Dr. Moralez and she does request consults. Was smoking cessation discussed for >3mins.? @ -No Was critical care preformed (if so, how long)? @ -No Were there social determinants of health that impacted care today? How? (Homelessness, low income, unemployed, alcoholism, drug addiction, transportation, low edu. Level, literacy, decrease access to med. care, half-way, rehab)? @ -No Was there de-escalation of care discussed even if they declined (Discuss DNR or withdrawal of care, Hospice)? DNR status @ -No What co-morbidities impacted this encounter? (DM, HTN, Smoking, COPD, CAD, Cancer, CVA, ARF, Chemo, Hep., AIDS, mental health diagnosis, sleep apnea, morbid obesity)? @ -history of COPD and CHF and recent COVID-19 infection Was patient admitted / discharged? Hospital course, mention meds given and route, prescriptions, significant lab abnormalities, going to OR and other pertinent info. @ -Patient presents with dyspnea and edema with recent COVID-19 infection. Patient has some improvement with nebulizer. Patient reevaluated and still appears somewhat dyspneic. Concern for CHF as well has multiple comorbidities. Patient will be admitted. Admission orders written. Undiagnosed new problem with uncertain prognosis? @ -No Drug Therapy requiring intensive monitoring for toxicity (Heparin, Nitro, Insulin, Cardizem)? @ -No Were any procedures done? @ -No Diagnosis/symptom? @ -Dyspnea, CHF, COPD, COVID-19 Acute, or Chronic, or Acute on Chronic? @ -Acute, acute, acute on chronic, acute on Uncomplicated (without systemic symptoms) or Complicated (systemic symptoms)? @ -Default Side effects of treatment? @ -No Exacerbation, Progression, or Severe Exacerbation? @ -Exacerbation of CHF Poses a threat to life or bodily function? How? (Chest pain, USA, NM, pneumonia, PE, COPD, DKA, ARF, appy, cholecystitis, CVA, Diverticulitis, Homicidal, Suicidal, threat to staff... and all critical care pts) @ -Cardiac and pulmonary function - Lab Data Result diagrams: 06/30/24 07:56 06/30/24 07:56 Lab Results 06/30/24 06/30/24 06/30/24 Range/Units 07:56 07:56 07:56 WBC 4.6 (3.8-10.6) k/uL RBC 3.24 L (3.80-5.40) m/uL Hgb 9.9 L (11.4-16.0) gm/dL Hct 30.6 L (34.0-46.0) % MCV 94.5 (80.0-100.0) fL MCH 30.7 (25.0-35.0) pg MCHC 32.4 (31.0-37.0) g/dL RDW 15.4 (11.5-15.5) % Plt Count 160 (150-450) k/uL MPV 9.4 Neutrophils % 67 % Lymphocytes % 23 % Monocytes % 6 % Eosinophils % 3 % Basophils % 0 % Neutrophils # 3.0 (1.3-7.7) k/uL Lymphocytes # 1.0 (1.0-4.8) k/uL Monocytes # 0.3 (0-1.0) k/uL Eosinophils # 0.2 (0-0.7) k/uL Basophils # 0.0 (0-0.2) k/uL PT 10.3 (10.0-12.5) sec INR 0.9 (<1.2) APTT 23.1 (22.0-30.0) sec Sodium 130 L (137-145) mmol/L Potassium 5.7 H (3.5-5.1) mmol/L Chloride 100 (98-107) mmol/L Carbon Dioxide 25 (22-30) mmol/L Anion Gap 5 mmol/L BUN 29 H (7-17) mg/dL Creatinine 1.78 H (0.52-1.04) mg/dL Est GFR (CKD-EPI)AfAm 35 (>60 ml/min/1.73 sqM) Est GFR (CKD-EPI)NonAf 31 (>60 ml/min/1.73 sqM) Glucose 238 H (74-99) mg/dL Plasma Lactic Acid Ketan (0.7-2.0) mmol/L Calcium 7.4 L (8.4-10.2) mg/dL Magnesium 1.6 (1.6-2.3) mg/dL Total Bilirubin 0.9 (0.2-1.3) mg/dL AST 37 H (14-36) U/L ALT 19 (4-34) U/L Alkaline Phosphatase 132 H (38-126) U/L Troponin I (0.000-0.034) ng/mL NT-Pro-B Natriuret Pep 79110 pg/mL Total Protein 5.7 L (6.3-8.2) g/dL Albumin 2.7 L (3.5-5.0) g/dL 06/30/24 06/30/24 Range/Units 07:56 07:56 WBC (3.8-10.6) k/uL RBC (3.80-5.40) m/uL Hgb (11.4-16.0) gm/dL Hct (34.0-46.0) % MCV (80.0-100.0) fL MCH (25.0-35.0) pg MCHC (31.0-37.0) g/dL RDW (11.5-15.5) % Plt Count (150-450) k/uL MPV Neutrophils % % Lymphocytes % % Monocytes % % Eosinophils % % Basophils % % Neutrophils # (1.3-7.7) k/uL Lymphocytes # (1.0-4.8) k/uL Monocytes # (0-1.0) k/uL Eosinophils # (0-0.7) k/uL Basophils # (0-0.2) k/uL PT (10.0-12.5) sec INR (<1.2) APTT (22.0-30.0) sec Sodium (137-145) mmol/L Potassium (3.5-5.1) mmol/L Chloride (98-107) mmol/L Carbon Dioxide (22-30) mmol/L Anion Gap mmol/L BUN (7-17) mg/dL Creatinine (0.52-1.04) mg/dL Est GFR (CKD-EPI)AfAm (>60 ml/min/1.73 sqM) Est GFR (CKD-EPI)NonAf (>60 ml/min/1.73 sqM) Glucose (74-99) mg/dL Plasma Lactic Acid Ketan 1.4 (0.7-2.0) mmol/L Calcium (8.4-10.2) mg/dL Magnesium (1.6-2.3) mg/dL Total Bilirubin (0.2-1.3) mg/dL AST (14-36) U/L ALT (4-34) U/L Alkaline Phosphatase (38-126) U/L Troponin I 0.016 (0.000-0.034) ng/mL NT-Pro-B Natriuret Pep pg/mL Total Protein (6.3-8.2) g/dL Albumin (3.5-5.0) g/dL Disposition Clinical Impression: Congestive heart failure, COPD (chronic obstructive pulmonary disease) Disposition: ADMITTED IP TO THIS HOSP Is patient prescribed a controlled substance at d/c from ED?: No Referrals: Papi Saavedra DO [Primary Care Provider] - 1-2 days Time of Disposition: 09:42
[2024-06-30] MEDS: IPRATROPIUM-ALBUTEROL 3 ML NEB INHALATION STA (08:01)
[2024-06-30 08:29] LABS: Basophils % (A) 0 %; Eosinophils # (A) 0.2 k/uL (0-0.7); Eosinophils % (A) 3 %; HCT 30.6 % (34.0-46.0); HGB 9.9 gm/dL (11.4-16.0); Lymphocytes % (A) 23 %; MCH 30.7 pg (25.0-35.0); MCHC 32.4 g/dL (31.0-37.0); MCV 94.5 fL (80.0-100.0); Mean Platelet Volume 9.4; Monocytes # (A) 0.3 k/uL (0-1.0); Monocytes % (A) 6 %; Neutrophils % (A) 67 %; Platelet Count 160 k/uL (150-450); RBC 3.24 m/uL (3.80-5.40); RDW 15.4 % (11.5-15.5); WBC 4.6 k/uL (3.8-10.6)
[2024-06-30 08:32] LABS: ALT 19 U/L (4-34); African American GFR (CKD) 35 (>60 ml/min/1.73 sqM); Albumin 2.7 g/dL (3.5-5.0); Anion Gap 5 mmol/L; Blood Urea Nitrogen 29 mg/dL (7-17); Calcium 7.4 mg/dL (8.4-10.2); Carbon Dioxide 25 mmol/L (22-30); Chloride 100 mmol/L (98-107); Glucose 238 mg/dL (74-99); INR 0.9 (<1.2); Magnesium 1.6 mg/dL (1.6-2.3); Non-African American GFR(CKD) 31 (>60 ml/min/1.73 sqM); Partial Thromboplastin Time 23.1 sec (22.0-30.0); Prothrombin Time 10.3 sec (10.0-12.5); Sodium 130 mmol/L (137-145); Total Bilirubin 0.9 mg/dL (0.2-1.3); Total Protein 5.7 g/dL (6.3-8.2)
[2024-06-30 08:40] LABS: AST 37 U/L (14-36); Alkaline Phosphatase 132 U/L (38-126); Potassium 5.7 mmol/L (3.5-5.1)
[2024-06-30 08:55] LABS: NT-Pro-B-Type Natriuretic Pept 26300 pg/mL
--- NOTE | 2024-06-30 08:59 | XR ---
EXAMINATION TYPE: XR chest 2V DATE OF EXAM: 06/30/2024 COMPARISON: 03/18/2024 INDICATION: Difficulty breathing TECHNIQUE: Frontal and lateral views of the chest are obtained. FINDINGS: The heart size is normal. The pulmonary vasculature is normal. Diffuse increased lung markings at bilateral lung bases, greater on the left. Small left pleural effu meenakshi present. Findings are worsening. Evaluate for atelectasis and pneumonia. Catheter is present on the right ribs distal superior vena cava region. IMPRESSION: 1. Worsening bibasilar infiltrates and small left pleural effusion. Follow-up recommended [facility] Clark, , 06/30/2024 8:57 AM
[2024-06-30] MEDS ORDERED: IPRATROPIUM-ALBUTEROL 3 ML NEB INHALATION PRN (09:42)
[2024-06-30] MEDS ORDERED: NALOXONE 0.4 MG/ML 1 ML VIAL IVP PRN (09:42)
[2024-06-30] MEDS: FUROSEMIDE 10 MG/ML 4 ML VIAL IV SCH (10:16)
[2024-06-30] MEDS: ASPIRIN 325 MG TAB PO STA (10:16)
[2024-06-30] MEDS ORDERED: methocarbamoL 750 MG TAB PO PRN (10:52)
[2024-06-30] MEDS ORDERED: ARTIFICIAL TEARS-HYPROMELLOSE DROPS 15 ML BTL BOTH EYES PRN (10:52)
[2024-06-30] MEDS: IPRATROPIUM-ALBUTEROL 3 ML NEB INHALATION SCH (11:35)
[2024-06-30] MEDS: INSULIN DETEMIR (LEVEMIR) 100 UNIT/ML SYR SQ SCH (11:51)
[2024-06-30] MEDS: NITROGLYCERIN OINT 1 INCH/GM PACKET TOPICAL SCH (11:51)
[2024-06-30] MEDS: methylPREDNISolone SOD SUCCI 125 MG/2 ML VIAL IV SCH (11:51)
[2024-06-30] MEDS: ACETAMINOPHEN TAB 325 MG TAB PO PRN (11:57)
--- NOTE | 2024-06-30 12:11 | P.NPCON ---
History of Present Illness - Reason for Consult Consult date: 06/30/24 end stage renal disease - Chief Complaint SOB - History of Present Illness Patient is a 59-year-old female present to the emergency department with concerns with difficulty in breathing. Onset of symptoms was a couple of weeks ago, worse the past few days. Patient did have COVID-19 infection 2 weeks ago. No recent fevers. Patient does have orthopnea and edema. Patient is a dialysis patient and has not missed any dialysis treatments. Cough has occasional clear sputum. Still makes urine. Vital signs are stable. General: No acute distress. HEENT: Head exam is unremarkable. LUNGS: Diminished breath sounds, +crackles HEART: Rate and Rhythm are regular. ABDOMEN: Nontender. EXTREMITITES: No edema. Review of Systems Constitutional: Reports as per HPI Past Medical History Past Medical History: Coronary Artery Disease (CAD), Chest Pain / Angina, Heart Failure, COPD, CVA/TIA, Diabetes Mellitus, Fibromyalgia, GERD/Reflux, Hyperlipidemia, Hypertension, Liver Disease, Myocardial Infarction (PR), Osteoarthritis (OA), Renal Disease, Thyroid Disorder Additional Past Medical History / Comment(s): NEUROPATHY BILATERAL FEET, DDD NECK AND LOWER BACK, hiatal hernia, states no need for BP med anymore(gets orthostatic hypotension-has "[employer] heart loop monitor"), hx hepatitis as a kid, hx fractrured left wrist, hx stroke 03/03/22-problems with balance since. History of Any Multi-Drug Resistant Organisms: MRSA Date of last positivie culture/infection: 2017 MDRO Source:: stomach Past Surgical History: Adenoidectomy, Back Surgery, Bladder Surgery, Hysterectomy, Orthopedic Surgery, Tonsillectomy, Tubal Ligation Additional Past Surgical History / Comment(s): Debridement right foot, PICC line placed and later removed, bladder suspension, exploratory laparotomy, right great toe amputation, pins right in foot, cataracts removed, left wrist ORIF, loop heart monitor placed 02/2022. Past Anesthesia/Blood Transfusion Reactions: No Reported Reaction, Motion Sickness Additional Past Anesthesia/Blood Transfusion Reaction / Comment(s): . Type of Cardiac Device: Loop Past Psychological History: Anxiety, Depression Smoking Status: Former smoker Past Alcohol Use History: Occasional Past Drug Use History: Marijuana, Methamphetamine - Past Family History Sister(s) Family Medical History: Coronary Artery Disease (CAD) Mother Family Medical History: Pulmonary Embolus Additional Family Medical History / Comment(s): . Father Additional Family Medical History / Comment(s): at 26yrs old--accident at work Medications and Allergies Home Medications Medication Instructions Recorded Confirmed Type Levothyroxine Sodium [Synthroid] 175 mcg PO DAILY 02/02/22 06/30/24 History Ondansetron [Zofran] 4 mg PO Q8H PRN 02/06/24 06/30/24 History traZODone HCL [Desyrel] 50 mg PO HS 02/09/24 06/30/24 History Clopidogrel [Plavix] 75 mg PO DAILY tab 03/18/24 06/30/24 Rx Ipratropium-Albuterol Nebulize 3 ml INHALATION RT-Q2H PRN each 03/18/24 06/30/24 Rx [Duoneb 0.5 mg-3 mg/3 ml Soln] Magnesium Oxide [Mag-Ox] 400 mg PO DAILY tab 03/18/24 06/30/24 Rx Pantoprazole [Protonix] 40 mg PO AC-BRKFST tab 03/18/24 06/30/24 Rx Tamsulosin [Flomax] 0.4 mg PO PC-SUPPER cap 03/18/24 06/30/24 Rx Acetaminophen Tab [Tylenol] 650 mg PO Q6H PRN 06/30/24 06/30/24 History Aspirin EC [Ecotrin Low Dose] 81 mg PO DAILY 06/30/24 06/30/24 History Atorvastatin [Lipitor] 40 mg PO HS 06/30/24 06/30/24 History Cephalexin [Keflex] 500 mg PO Q12HR 06/30/24 06/30/24 History Fluticasone/Umeclidin/Vilanter 1 puff INHALATION RT-DAILY 06/30/24 06/30/24 History [Trelegy Ellipta 100-62.5-25] INSULIN ASPART (NovoLOG) [NovoLOG See Protocol SQ AC-TID 06/30/24 06/30/24 History (formulary)] Insulin Glargine,Hum.rec.anlog 15 units SQ DAILY 06/30/24 06/30/24 History [Lantus Solostar Pen] Ipratropium Mack [Atrovent Hfa] 2 puff INHALATION RT-Q6H PRN 06/30/24 06/30/24 History Metoprolol Tartrate [Lopressor] 12.5 mg PO BID 06/30/24 06/30/24 History Polyvinyl Alcohol/Povidone [Clear 1 drop BOTH EYES QID PRN 06/30/24 06/30/24 History Eyes Natural Tears Drop] Torsemide [Demadex] 50 mg PO BID 06/30/24 06/30/24 History bisacodyL [Dulcolax] 5 mg PO HS 06/30/24 06/30/24 History hydrALAZINE HCL [Apresoline] 12.5 mg PO TID 06/30/24 06/30/24 History methocarbamoL [Robaxin-750] 750 mg PO Q6H PRN 06/30/24 06/30/24 History Allergies Allergy/AdvReac Type Severity Reaction Status Date / Time Sulfa (Sulfonamide Allergy Rash/Hives Verified 06/30/24 10:34 Antibiotics) Physical Exam Vitals: Vital Signs Temp Pulse Resp BP Pulse Ox 06/30/24 08:14 98 06/30/24 08:02 98 06/30/24 07:50 97.6 F 86 18 137/83 96 Intake and Output 06/29/24 06/30/24 06/30/24 22:59 06:59 14:59 Other: Weight 79 kg Results - Lab Results Most recent lab results Calcium 7.4 mg/dL (8.4-10.2) L 06/30/24 07:56 Magnesium 1.6 mg/dL (1.6-2.3) 06/30/24 07:56 06/30/24 07:56 06/30/24 07:56 Assessment and Plan Assessment: 1. ESRD on HD MWF 2. Hyperkalemia 3. Hypoxic Respiratory Failure, 4. Recent COVID-19 PNA with possible superimposed bacterial PNA 5. HTN with ESRD 6. Anemia with ESRD goal Hb 10-11.5 7. 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
[2024-06-30] MEDS ORDERED: DEXTROSE 50% SYRINGE 50 ML IVP PRN (13:57)
--- NOTE | 2024-06-30 14:07 | P.HPIM ---
History of Present Illness H&P Date: 06/30/24 Chief Complaint: shortness of breath Patient is a 59-year-old female with history of end-stage renal disease on hemodialysis followed by Dr. Davies, congestive heart failure, COPD, diabetes, and multiple other comorbid conditions who presented with shortness of breath. She reports that she has been having shortness of breath since open heart surgery in February. She then had COVID several weeks ago and has had persistent shortness of breath. She reports recent hospitalizations at [facility] and states she had an echo in the last several weeks which showed an ejection fraction of approximately 25%. In the ER she underwent extensive exam. Initial vital signs were unremarkable. Initial laboratory analysis showed hemoglobin of 9.9, sodium 130, potassium 5.7 however this was hemolyzed, BUN 29, creatinine 1.78, AST of 37, and BNP of 26,300. Initial chest x-ray is reviewed by myself show signs of pulmonary edema. She reports that she still makes urine and was started on Lasix with cardiology and nephrology consultations. Patient seen and examined at bedside. Shortness of breath. Worse with exertion and better with rest. No wheezing. She has a chronic cough. She does report increased lower extremity edema, a new wound on her left leg with drainage, and was placed on Keflex by Dr. Davies last week. She reports that she underwent a longer dialysis session recently. She denies any difficulty with urination or changes in bowel habits. She reports chronic nausea and vomiting. She denies any chest pain. No other complaints. Vital signs reviewed General: nontoxic, no distress, appears at stated age Derm: warm, dry Eyes: EOMI, no lid lag, anicteric sclera, pupils equal round reactive to light ENT: Nose and ears atraumatic Cardiovascular: S1S2 reg, no murmur, no edema Lungs: clear to auscultation bilateral, no rhonchi, no rales, no wheeze, no accessory muscle use Abdominal: soft, nontender to palpation, no guarding Ext: no gross muscle atrophy, no contractures Neuro: CN II-XII grossly intact, No focal neuro deficits Psych: Alert, oriented, appropriate affect Assessment/Plan: Exacerbation of systolic congestive heart failure, last EF per patient 25%, last EF here 15 to 20% in February 2024 End-stage renal disease on hemodialysis Monday/Monday/Monday with hyperkal emia likely related to hemolysis Dyslipidemia Coronary artery disease s/p CABG -Lasix 80 mg IV twice daily and hemodialysis for fluid management -Obtain records from [facility] for echocardiogram -Lopressor 12.5 mg twice daily, aspirin 81 mg daily, Plavix 75 mg daily -Not chronically on RAN or ARB likely in the setting of end-stage renal disease -Nephrology consultation reviewed: Mark x 1, plan for HD in a.m. COPD without exacerbation -Resume DuoNebs and bronchodilators per home regimen Diabetes mellitus type 2 -Sliding scale insulin -Levemir 15 units daily -Check A1c -Follow blood sugars Left lower extremity wound -Continue with Keflex. Does not appear to be infected at this time. Likely related to fluid overload Imaging: As per HPI Data Review: As per HP Chronic: Fibromyalgia GERD Neuropathy Hiatal hernia The patient is admitted with an anticipated greater than 2 midnight stay for evaluation of acute exacerbation of congestive heart failure. Surrogate decision-maker: Son CODE STATUS: Full DVT prophylaxis: Heparin Anticipated discharge date: 2 to [address]: Home with home health This dictation was prepared using [employer] voice recognition software. Though every attempt is made to correct errors during dictation some may still e xist. Past Medical History Past Medical History: Coronary Artery Disease (CAD), Chest Pain / Angina, Heart Failure, COPD, CVA/TIA, Diabetes Mellitus, Fibromyalgia, GERD/Reflux, Hyperlipidemia, Hypertension, Liver Disease, Myocardial Infarction (OH), Osteoarthritis (OA), Renal Disease, Thyroid Disorder Additional Past Medical History / Comment(s): NEUROPATHY BILATERAL FEET, DDD NECK AND LOWER BACK, hiatal hernia, states no need for BP med anymore(gets orthostatic hypotension-has "medtronic heart loop monitor"), hx hepatitis as a kid, hx fractrured left wrist, hx stroke 03/03/22-problems with balance since. History of Any Multi-Drug Resistant Organisms: MRSA Date of last positivie culture/infection: 2017 MDRO Source:: stomach Past Surgical History: Adenoidectomy, Back Surgery, Bladder Surgery, Hysterectomy, Orthopedic Surgery, Tonsillectomy, Tubal Ligation Additional Past Surgical History / Comment(s): Debridement right foot, PICC line placed and later removed, bladder suspension, exploratory laparotomy, right great toe amputation, pins right in foot, cataracts removed, left wrist ORIF, loop heart monitor placed 02/2022. Past Anesthesia/Blood Transfusion Reactions: No Reported Reaction, Motion Sickness Additional Past Anesthesia/Blood Transfusion Reaction / Comment(s): . Type of Cardiac Device: Loop Past Psychological History: Anxiety, Depression Smoking Status: Former smoker Past Alcohol Use History: Occasional Past Drug Use History: Marijuana, Methamphetamine - Past Family History Sister(s) Family Medical History: Coronary Artery Disease (CAD) Mother Family Medical History: Pulmonary Embolus Additional Family Medical History / Comment(s): . Father Additional Family Medical History / Comment(s): at 26yrs old--accident at work Medications and Allergies Home Medications Medication Instructions Recorded Confirmed Type Levothyroxine Sodium [Synthroid] 175 mcg PO DAILY 02/02/22 06/30/24 History Ondansetron [Zofran] 4 mg PO Q8H PRN 02/06/24 06/30/24 History traZODone HCL [Desyrel] 50 mg PO HS 02/09/24 06/30/24 History Clopidogrel [Plavix] 75 mg PO DAILY tab 03/18/24 06/30/24 Rx Ipratropium-Albuterol Nebulize 3 ml INHALATION RT-Q2H PRN each 03/18/24 06/30/24 Rx [Duoneb 0.5 mg-3 mg/3 ml Soln] Magnesium Oxide [Mag-Ox] 400 mg PO DAILY tab 03/18/24 06/30/24 Rx Pantoprazole [Protonix] 40 mg PO AC-BRKFST tab 03/18/24 06/30/24 Rx Tamsulosin [Flomax] 0.4 mg PO PC-SUPPER cap 03/18/24 06/30/24 Rx Acetaminophen Tab [Tylenol] 650 mg PO Q6H PRN 06/30/24 06/30/24 History Aspirin EC [Ecotrin Low Dose] 81 mg PO DAILY 06/30/24 06/30/24 History Atorvastatin [Lipitor] 40 mg PO HS 06/30/24 06/30/24 History Cephalexin [Keflex] 500 mg PO Q12HR 06/30/24 06/30/24 History Fluticasone/Umeclidin/Vilanter 1 puff INHALATION RT-DAILY 06/30/24 06/30/24 History [Trelegy Ellipta 100-62.5-25] INSULIN ASPART (NovoLOG) [NovoLOG See Protocol SQ AC-TID 06/30/24 06/30/24 Hi story (formulary)] Insulin Glargine,Hum.rec.anlog 15 units SQ DAILY 06/30/24 06/30/24 History [Lantus Solostar Pen] Ipratropium Gardiner [Atrovent Hfa] 2 puff INHALATION RT-Q6H PRN 06/30/24 06/30/24 History Metoprolol Tartrate [Lopressor] 12.5 mg PO BID 06/30/24 06/30/24 History Polyvinyl Alcohol/Povidone [Clear 1 drop BOTH EYES QID PRN 06/30/24 06/30/24 History Eyes Natural Tears Drop] Torsemide [Demadex] 50 mg PO BID 06/30/24 06/30/24 History bisacodyL [Dulcolax] 5 mg PO HS 06/30/24 06/30/24 History hydrALAZINE HCL [Apresoline] 12.5 mg PO TID 06/30/24 06/30/24 History methocarbamoL [Robaxin-750] 750 mg PO Q6H PRN 06/30/24 06/30/24 History Allergies Allergy/AdvReac Type Severity Reaction Status Date / Time Sulfa (Sulfonamide Allergy Rash/Hives Verified 06/30/24 10:34 Antibiotics) Physical Exam Osteopathic Statement: *. No significant issues noted on an osteopathic structural exam other than those noted in the History and Physical/Consult. Vitals: Vital Signs Temp Pulse Resp BP Pulse Ox 06/30/24 13:00 100 18 145/83 95 06/30/24 11:49 98 06/30/24 11:35 96 06/30/24 08:14 98 06/30/24 08:02 98 06/30/24 07:50 97.6 F 86 18 137/83 96 Intake and Output 06/29/24 06/30/24 06/30/24 22:59 06:59 14:59 Other: Weight 79 kg Results CBC & Chem 7: 06/30/24 07:56 06/30/24 07:56 Labs: Abnormal Lab Results - Last 24 Hours (Table) 06/30/24 06/30/24 Range/Units 07:56 07:56 RBC 3.24 L (3.80-5.40) m/uL Hgb 9.9 L (11.4-16.0) gm/dL Hct 30.6 L (34.0-46.0) % Sodium 130 L (137-145) mmol/L Potassium 5.7 H (3.5-5.1) mmol/L BUN 29 H (7-17) mg/dL Creatinine 1.78 H (0.52-1.04) mg/dL Glucose 238 H (74-99) mg/dL Calcium 7.4 L (8.4-10.2) mg/dL AST 37 H (14-36) U/L Alkaline Phosphatase 132 H (38-126) U/L Total Protein 5.7 L (6.3-8.2) g/dL Albumin 2.7 L (3.5-5.0) g/dL
[2024-06-30] MEDS: SODIUM ZIRCONIUM CYCLOSILICATE 10 GM PACKET PO ONE (14:18)
[2024-06-30] MEDS: ONDANSETRON 4 MG TAB PO PRN (14:18)
[2024-06-30] MEDS: hydrALAZINE HCL 25 MG TAB PO SCH (15:45)
[2024-06-30] MEDS: HEPARIN SODIUM,PORCINE 5,000 UNIT/ML 1 ML VIAL SQ SCH (15:45)
[2024-06-30 17:16] LABS: Glucose,Whole Blood 278 mg/dL (70-110)
[2024-06-30] MEDS: INSULIN ASPART (NovoLOG) 100 UNIT/ML VIAL SQ SCH ×2 (17:20→17:21)
[2024-06-30] MEDS: TAMSULOSIN 0.4 MG CAP.ER.24H PO SCH (18:11)
[2024-06-30] MEDS: SYMBICORT 80-4.5 MCG INHALER INHALATION SCH (19:53)
[2024-06-30 20:32] LABS: Glucose,Whole Blood 322 mg/dL (70-110)
[2024-06-30] MEDS ORDERED: TORSEMIDE 20 MG TAB PO SCH (21:00)
[2024-06-30] MEDS: ATORVASTATIN 40 MG TAB PO SCH (21:33)
[2024-06-30] MEDS: METOPROLOL TARTRATE 12.5 MG TAB PO SCH (21:33)
[2024-06-30] MEDS: HYDROcodone/APAP 5-325MG 1 EACH TAB PO PRN (21:33)
[2024-06-30] MEDS: traZODone HCL 50 MG TAB PO SCH (21:35)
[2024-06-30] MEDS: bisacodyL 5 MG TABLET.DR PO SCH (21:35)
[2024-06-30] MEDS: FUROSEMIDE 10 MG/ML 10 ML VIAL IV SCH (21:36)
[2024-06-30 23:56] LABS: Glucose,Whole Blood 316 mg/dL (70-110)
[2024-07-01] MEDS: MELATONIN 3 MG TABLET PO PRN (02:39)
[2024-07-01 06:08] LABS: Glucose,Whole Blood 350 mg/dL (70-110)
[2024-07-01] MEDS: LEVOTHYROXINE 88 MCG TAB PO SCH (06:53)
[2024-07-01] MEDS: PANTOPRAZOLE 40 MG TABLET PO SCH (06:54)
[2024-07-01] MEDS ORDERED: ASPIRIN 325 MG TAB PO SCH (09:00)
[2024-07-01] MEDS ORDERED: NON FORMULARY DRUG (Aspirin Ec 81 MG Tablet) PO SCH (09:00)
--- NOTE | 2024-07-01 11:03 | P.PN ---
Subjective Patient is seen in follow-up for acute kidney injury, hemodialysis dependent. Scheduled for dialysis today. Currently on 2 L nasal cannula. Hemodynamically stable. Does make urine but not a significant amount. Vital signs are stable. General: No acute distress. HEENT: Head exam is unremarkable. LUNGS: No audible rhonchi or wheezes. HEART: Rate and Rhythm are regular. ABDOMEN: Nontender. EXTREMITITES: 2+ edema. Objective - Vital Signs Vital signs: Vital Signs Temp 97.8 F 07/01/24 08:30 Pulse 96 07/01/24 09:26 Resp 18 07/01/24 08:30 BP 130/74 07/01/24 08:30 Pulse Ox 97 07/01/24 08:30 FiO2 Intake & Output 06/30/24 07/01/24 07/01/24 18:59 06:59 18:59 Intake Total 20 240 Output Total 400 Balance 20 -160 Weight 79 kg 79.5 kg Intake: IV 20 Invasive Line 1 20 Oral 240 Output: Urine 400 Straight 400 Other: Voiding Method Bedside Commode Bedside Commode # Voids 0 # Bowel Movements 0 - Labs CBC & Chem 7: 06/30/24 07:56 06/30/24 07:56 Labs: Abnormal Lab Results - Last 24 Hours (Table) 06/30/24 06/30/24 06/30/24 Range/Units 17:15 20:31 23:53 POC Glucose (mg/dL) 278 H 322 H 316 H (70-110) mg/dL Hemoglobin A1c (<=6.0) % 07/01/24 07/01/24 Range/Units 06:07 06:49 POC Glucose (mg/dL) 350 H (70-110) mg/dL Hemoglobin A1c 9.7 H (<=6.0) % Assessment and Plan Plan: Assessment: 1. Acute kidney injury secondary to ATN secondary to cardiorenal syndrome, hemodialysis dependent. Maintained on hemodialysis on Monday schedule via permacath. 2. Volume overload. 3. Recent COVID-19 infection. Concern for superimposed bacterial pneumonia. 4. Coronary disease status post CABG. 5. Diabetes mellitus. 6. Hypertension with chronic kidney disease. Stable. 7. Hyperkalemia secondary to chronic kidney disease. That was a hemolyzed sample. Status post Lokelma. 8. Anemia of chronic kidney disease. Rule out iron deficiency. Plan: Hemodialysis today. Another treatment tomorrow mostly for ultrafiltration. Maintain IV Lasix. Check iron studies. Monitor for renal recovery outpatient.
[2024-07-01 11:35] LABS: African American GFR (CKD) 28 (>60 ml/min/1.73 sqM); Anion Gap 1 mmol/L; Blood Urea Nitrogen 37 mg/dL (7-17); Calcium 8.1 mg/dL (8.4-10.2); Carbon Dioxide 23 mmol/L (22-30); Chloride 104 mmol/L (98-107); Glucose 340 mg/dL (74-99); Magnesium 1.6 mg/dL (1.6-2.3); Non-African American GFR(CKD) 24 (>60 ml/min/1.73 sqM); Potassium 5.2 mmol/L (3.5-5.1); Sodium 128 mmol/L (137-145)
[2024-07-01 11:47] LABS: Glucose,Whole Blood 228 mg/dL (70-110)
--- NOTE | 2024-07-01 12:31 | P.PN ---
Subjective Progress Note Date: 07/01/24 Principal diagnosis: chf Patient states that overall since she had covid 2-3 weeks ago she is not feeling any better. Still with sob and cough productive of green phlegm. Still with chills. No fevers. Chest x-ray showing small bibasilar infiltrates with small left pleural effusion. Had an echocardiogram on 06/18 at [place] which showed ejection fraction of 30%, severe mitral regurgitation and tricuspid regurgitation, mild to moderate aortic insufficiency. Patient also states that she had recent right-sided thoracentesis at [place] during her recent hospitalization over there. Objective - Vital Signs Vital signs: Vital Signs Temp 97.8 F 07/01/24 08:30 Pulse 92 07/01/24 12:06 Resp 18 07/01/24 08:30 BP 130/74 07/01/24 08:30 Pulse Ox 97 07/01/24 08:30 FiO2 Intake & Output 06/30/24 07/01/24 07/01/24 18:59 06:59 18:59 Intake Total 20 240 Output Total 400 Balance 20 -160 Weight 79 kg 79.5 kg Intake: IV 20 Invasive Line 1 20 Oral 240 Output: Urine 400 Straight 400 Other: Voiding Method Bedside Commode Bedside Commode # Voids 0 # Bowel Movements 0 - Exam Vital signs reviewed General: nontoxic, no distress, appears at stated age Derm: warm, dry Eyes: EOMI, no lid lag, anicteric sclera, pupils equal round reactive to light ENT: Nose and ears atraumatic Cardiovascular: S1S2 reg, no murmur, no edema Lungs: clear to auscultation bilateral, no rhonchi, no rales, no wheeze, no accessory muscle use Abdominal: soft, nontender to palpation, no guarding Ext: no gross muscle atrophy, no contractures Neuro: CN II-XII grossly intact, No focal neuro deficits Psych: Alert, oriented, appropriate affect - Labs CBC & Chem 7: 06/30/24 07:56 07/01/24 06:49 Labs: Abnormal Lab Results - Last 24 Hours (Table) 06/30/24 06/30/24 06/30/24 Range/Units 17:15 20:31 23:53 Sodium (137-145) mmol/L Potassium (3.5-5.1) mmol/L BUN (7-17) mg/dL Creatinine (0.52-1.04) mg/dL Glucose (74-99) mg/dL POC Glucose (mg/dL) 278 H 322 H 316 H (70-110) mg/dL Hemoglobin A1c (<=6.0) % Calcium (8.4-10.2) mg/dL 07/01/24 07/01/24 07/01/24 Range/Units 06:07 06:49 06:49 Sodium 128 L (137-145) mmol/L Potassium 5.2 H (3.5-5.1) mmol/L BUN 37 H (7-17) mg/dL Creatinine 2.19 H (0.52-1.04) mg/dL Glucose 340 H (74-99) mg/dL POC Glucose (mg/dL) 350 H (70-110) mg/dL Hemoglobin A1c 9.7 H (<=6.0) % Calcium 8.1 L (8.4-10.2) mg/dL 07/01/24 Range/Units 11:45 Sodium (137-145) mmol/L Potassium (3.5-5.1) mmol/L BUN (7-17) mg/dL Creatinine (0.52-1.04) mg/dL Glucose (74-99) mg/dL POC Glucose (mg/dL) 228 H (70-110) mg/dL Hemoglobin A1c (<=6.0) % Calcium (8.4-10.2) mg/dL Assessment and Plan Plan: Exacerbation of systolic congestive heart failure, last EF per patient 25%, last EF here 15 to 20% in February 2024, now up to 30% according to recent echo End-stage renal disease on hemodialysis Monday/Monday/Monday with hyperkalemia likely related to hemolysis Dyslipidemia Coronary artery disease s/p CABG -Lasix 80 mg IV twice daily and hemodialysis for fluid management -Recent echocardiogram done 06/18 shows ejection fraction of 30%, severe mitral regurgitation and tricuspid regurgitation, mild to moderate aortic insufficiency. -Lopressor 12.5 mg twice daily, aspirin 81 mg daily, Plavix 75 mg daily -Not chronically on RAN or ARB likely in the setting of end-stage renal disease -Nephrology consultation reviewed: Mercedesma x 1, continue HD. -Due to lack of improvement over the past 2 to 3 weeks, concern for superimposed bacterial pneumonia on COVID, will initiate empiric antibiotics with ceftriaxone and azithromycin, check blood cultures and procalcitonin, consult pulmonary services. COPD without exacerbation -Resume DuoNebs and bronchodilators per home regimen Diabetes mellitus type 2 -Sliding scale insulin -BG still not controlled. Will increase levemir to 25 units daily -A1c 9.7 -Follow blood sugars Left lower extremity wound -Does not appear to be infected at this time. Likely related to fluid overload Imaging: As per HPI Data Review: As per HP Chronic: Fibromyalgia GERD Neuropathy Hiatal hernia Surrogate decision-maker: Son CODE STATUS: Full DVT prophylaxis: Heparin Anticipated discharge date: 2 to [address]: Home with home health This dictation was prepared using [employer] voice recognition software. Though every attempt is made to correct errors during dictation some may still exist.
[2024-07-01] MEDS: guaiFENesin-Coden 100-10MG/5ML 10 ML CUP PO PRN (13:03)
--- NOTE | 2024-07-01 13:31 | P.CRDCN ---
History of Present Illness Consult date: 07/01/24 Reason for Consult (text): Heart failure History of present illness: This is 59-year-old patient of Dr. Saunders with past medical history of coronary artery disease, CVA, hypertension, hypothyroidism, diabetes mellitus type 2, end-stage renal disease on dialysis, remote history of tobacco use and dependence, COPD. We have been asked to evaluate the patient for heart failure. Patient was recently hospitalized in January through March 2024 for non-ST elevated myocardial infarction and heart failure with reduced EF, and underwent CABG x 4 on 02/25 with sequential left internal mammary artery to left anterior descending coronary artery and diagonal coronary artery, reverse saphenous vein graft to the posterior descending coronary artery and second obtuse marginal coronary artery, closure of the left atrial appendage. During that hospita lization, patient was started on hemodialysis and she also had a postop episode of paroxysmal atrial fibrillation. We have been asked to evaluate the patient for heart failure. Patient developed shortness of breath couple weeks ago that had worsened over the past few days. She was positive for COVID-19 2 weeks ago. Positive cough with clear sputum production. She has missed dialysis treatmen ts since she has been ill. She states she was at [facility] had an echocardiogram done there recently and was also at [facility] had the right side of her lungs drained. Patient states that she was just discharged from [facility] on Monday. She states she has always nauseated. No blood in her stools or urine. She denies any use of caffeine or alcohol. Blood pressure 127/68, heart rate 75, pulse ox 97% on 2 L nasal cannula. Patient received 1 dose of IV steroids, Nitro-Bid and started on IV Lasix 80 mg every 12 hours. EKG: Sinus rhythm with IVCD Chest x-ray: Worsening bibasilar infiltrates and small left pleural effusion. Laboratory studies: WBC 4.6, hemoglobin 9.9. Sodium 130, potassium 5.7, BUN 29, creatinine 1.78. Glucose 238. proBNP 26,300. Troponin 0.016. Alkaline phosphatase 132, AST 37. Home cardiac medications: Aspirin 81 mg daily, Lipitor 40 mg at bedtime, Plavix 75 mg daily, hydralazine 12.5 mg 3 times daily, magnesium oxide 400 mg daily, Lopressor 12.5 mg twice daily, Demadex 50 mg twice daily, patient also on levothyroxine 175 mcg daily. [place] performed on 02/06/2024 revealed: Mild mitral regurgitation, mild tricuspid regurgitation, no PFO, left atrial appendage free of clot, EF 35% with global hypokinesis. Cardiac catheterization performed 02/06/2024 revealed calcified coronary arteries, severe triple-vessel disease, right dominance, mildly elevated LVEDP. Echocardiogram performed on 03/05/2024 revealed EF of 15 to 20% severely reduced global left ventricular systolic function, a typical septal motion with intraventricular dyssynchrony. No obvious evidence of LV thrombus. No pericardial effusion. Echocardiogram performed on 06/18/2024 at [facility] revealed EF of 30%. Severe mitral and tricuspid regurgitation. Mild to moderate aortic insufficiency. No significant pericardial effusion. Review Of Systems: At the time of my exam: CONSTITUTIONAL: Denies fever or chills. HEENT: Denies blurred vision, vision changes, or eye pain. Denies hemoptysis CARDIOVASCULAR: Denies chest pain. + orthopnea. Denies PND. Denies palpitations. + Lower extremity edema RESPIRATORY: Denies shortness of breath. GASTROINTESTINAL: Denies abdominal pain. Reports chronic nausea without vomiting. HEMATOLOGIC: Denies bleeding disorders. GENITOURINARY: Denies any blood in urine. SKIN: Denies puritis. Denies rash. Physical examination: Gen: This is a 59-year-old female appears to be in no acute distress VS: reviewed HEENT: Head is atraumatic, normocephalic. Pupils equal, round. Sclerae is anicteric. NECK: Supple. No JVD. LUNGS: Diminished breath sounds. Bilateral wheeze no intercostal retractions. HEART: Regular rate and rhythm. No murmur. ABDOMEN: Soft No tenderness. EXTREMITIES: Bilateral lower extremity edema. No calf tenderness. NEUROLOGICAL: Patient is awake, alert and oriented x3. Assessment: Acute on chronic systolic heart failure Ischemic cardiomyopathy Coronary artery disease status post CABG Recent COVID-19 2 weeks ago Hypertension CVA Diabetes mellitus type 2 End-stage renal disease on hemodialysis Remote history of tobacco use and dependence COPD Plan: Resume patient's home cardiac medications Obtain records from [facility] Continue patient on Lasix 80 mg IV every 12 hours Nephrology on consult for dialysis Monitor [place], daily weights, electrolytes and renal function Further recommendations to follow based upon clinical course Thank you kindly for this consultation. Nurse practitioner note has been reviewed, I agree with documented findings and plan of care. Patient was seen and examined. Past Medical History Past Medical History: Coronary Artery Disease (CAD), Chest Pain / Angina, Heart Failure, COPD, CVA/TIA, Diabetes Mellitus, Fibromyalgia, GERD/Reflux, Hyperlipidemia, Hypertension, Liver Disease, Myocardial Infarction (SD), Osteoarthritis (OA), Renal Disease, Thyroid Disorder Additional Past Medical History / Comment(s): NEUROPATHY BILATERAL FEET, DDD NECK AND LOWER BACK, hiatal hernia, states no need for BP med anymore(gets orthostatic hypotension-has "medtronic heart loop monitor"), hx hepatitis as a kid, hx fractrured left wrist, hx stroke 03/03/22-problems with balance since. Last Myocardial Infarction Date:: 02/2024 History of Any Multi-Drug Resistant Organisms: MRSA Date of last positivie culture/infection: 2017 MDRO Source:: stomach Past Surgical History: Adenoidectomy, Back Surgery, Bladder Surgery, Hysterectomy, Orthopedic Surgery, Tonsillectomy, Tubal Ligation Additional Past Surgical History / Comment(s): Debridement right foot, PICC line placed and later removed, bladder suspension, exploratory laparotomy, right great toe amputation, pins right in foot, cataracts removed, left wrist ORIF, loop heart monitor placed 02/2022. Past Anesthesia/Blood Transfusion Reactions: No Reported Reaction, Motion Sickness Additional Past Anesthesia/Blood Transfusion Reaction / Comment(s): . Type of Cardiac Device: Loop Past Psychological History: Anxiety, Depression Smoking Status: Former smoker Past Alcohol Use History: Occasional Additional Past Alcohol Use History / Comment(s): SMOKER SINCE 1983, 1 PPD. Past Drug Use History: Marijuana, Methamphetamine - Past Family History Sister(s) Family Medical History: Coronary Artery Disease (CAD) Mother Family Medical History: Pulmonary Embolus Additional Family Medical History / Comment(s): . Father Additional Family Medical History / Comment(s): at 26yrs old--accident at work Medications and Allergies Home Medications Medication Instructions Recorded Confirmed Type Levothyroxine Sodium [Synthroid] 175 mcg PO DAILY 02/02/22 06/30/24 History Ondansetron [Zofran] 4 mg PO Q8H PRN 02/06/24 06/30/24 History traZODone HCL [Desyrel] 50 mg PO HS 02/09/24 06/30/24 History Clopidogrel [Plavix] 75 mg PO DAILY tab 03/18/24 06/30/24 Rx Ipratropium-Albuterol Nebulize 3 ml INHALATION RT-Q2H PRN each 03/18/24 06/30/24 Rx [Duoneb 0.5 mg-3 mg/3 ml Soln] Magnesium Oxide [Mag-Ox] 400 mg PO DAILY tab 03/18/24 06/30/24 Rx Pantoprazole [Protonix] 40 mg PO AC-BRKFST tab 03/18/24 06/30/24 Rx Tamsulosin [Flomax] 0.4 mg PO PC-SUPPER cap 03/18/24 06/30/24 Rx Acetaminophen Tab [Tylenol] 650 mg PO Q6H PRN 06/30/24 06/30/24 History Aspirin EC [Ecotrin Low Dose] 81 mg PO DAILY 06/30/24 06/30/24 History Atorvastatin [Lipitor] 40 mg PO HS 06/30/24 06/30/24 History Cephalexin [Keflex] 500 mg PO Q12HR 06/30/24 06/30/24 History Fluticasone/Umeclidin/Vilanter 1 puff INHALATION RT-DAILY 06/30/24 06/30/24 History [Trelegary Ellipta 100-62.5-25] INSULIN ASPART (NovoLOG) [NovoLOG See Protocol SQ AC-TID 06/30/24 06/30/24 History (formulary)] Insulin Glargine,Hum.rec.anlog 15 units SQ DAILY 06/30/24 06/30/24 History [Lantus Solostar Pen] Ipratropium [place] [Atrovent Hfa] 2 puff INHALATION RT-Q6H PRN 06/30/24 06/30/24 History Metoprolol Tartrate [Lopressor] 12.5 mg PO BID 06/30/24 06/30/24 History Polyvinyl Alcohol/Povidone [Clear 1 drop BOTH EYES QID PRN 06/30/24 06/30/24 History Eyes Natural Tears Drop] Torsemide [Demadex] 50 mg PO BID 06/30/24 06/30/24 History bisacodyL [Dulcolax] 5 mg PO HS 06/30/24 06/30/24 History hydrALAZINE HCL [Apresoline] 12.5 mg PO TID 06/30/24 06/30/24 History methocarbamoL [Robaxin-750] 750 mg PO Q6H PRN 06/30/24 06/30/24 History Allergies Allergy/AdvReac Type Severity Reaction Status Date / Time Sulfa (Sulfonamide Allergy Rash/Hives Verified 06/30/24 10:34 Antibiotics) Physical Exam Vitals: Vital Signs Temp Pulse Pulse Resp BP BP Pulse Ox 07/01/24 04:00 97.7 F 75 127/68 97 07/01/24 00:00 97.4 F L 86 20 144/67 96 06/30/24 20:00 97.7 F 101 H 20 123/72 95 06/30/24 19:56 101 H 06/30/24 19:52 100 20 119/76 96 06/30/24 19:46 101 H 06/30/24 15:50 98 06/30/24 15:39 98 06/30/24 13:00 100 18 145/83 95 06/30/24 11:49 98 06/30/24 11:35 96 06/30/24 08:14 98 06/30/24 08:02 98 06/30/24 07:50 97.6 F 86 18 137/83 96 Intake and Output 06/30/24 07/01/24 07/01/24 22:59 06:59 14:59 Intake Total 10 10 Output Total 400 Balance 10 10 -400 Intake: IV 10 10 Invasive Line 1 10 10 Output: Urine 400 Straight 400 Other: Voiding Method Bedside Commode Bedside Commode # Voids 0 # Bowel Movements 0 Weight 79.5 kg Results 06/30/24 07:56 07/01/24 06:49 Cardiac Enzymes 06/30/24 06/30/24 Range/Units 07:56 07:56 AST 37 H (14-36) U/L Troponin I 0.016 (0.000-0.034) ng/mL Coagulation 06/30/24 Range/Units 07:56 PT 10.3 (10.0-12.5) sec APTT 23.1 (22.0-30.0) sec CBC 06/30/24 Range/Units 07:56 WBC 4.6 (3.8-10.6) k/uL RBC 3.24 L (3.80-5.40) m/uL Hgb 9.9 L (11.4-16.0) gm/dL Hct 30.6 L (34.0-46.0) % Plt Count 160 (150-450) k/uL Comprehensive Metabolic Panel 06/30/24 Range/Units 07:56 Sodium 130 L (137-145) mmol/L Potassium 5.7 H (3.5-5.1) mmol/L Chloride 100 (98-107) mmol/L Carbon Dioxide 25 (22-30) mmol/L BUN 29 H (7-17) mg/dL Creatinine 1.78 H (0.52-1.04) mg/dL Glucose 238 H (74-99) mg/dL Calcium 7.4 L (8.4-10.2) mg/dL AST 37 H (14-36) U/L ALT 19 (4-34) U/L Alkaline Phosphatase 132 H (38-126) U/L Total Protein 5.7 L (6.3-8.2) g/dL Albumin 2.7 L (3.5-5.0) g/dL Current Medications Generic Name Dose Route Start Last Admin Trade Name Freq PRN Reason Stop Dose Admin Acetaminophen 650 mg 06/30/24 10:52 06/30/24 11:57 Acetaminophen Tab 325 Mg Tab PO 650 mg Q6H PRN Administration Fever and/ or Pain Hydrocodone Bitart/Acetaminophen 1 each 06/30/24 13:53 06/30/24 21:33 Hydrocodone/Apap 5-325mg 1 Each Tab PO 1 each Q4HR PRN Administration Moderate Pain (Scale 4 to 6) Albuterol/Ipratropium 3 ml 06/30/24 12:00 06/30/24 19:45 Ipratropium-Albuterol 3 Ml Neb INHALATION 3 ml RT-QID LYNDSAY Administration Albuterol/Ipratropium 3 ml 06/30/24 09:42 Ipratropium-Albuterol 3 Ml Neb INHALATION RT-Q2H PRN Shortness Of Breath Or Wheezing Artificial Tears 1 drops 06/30/24 10:52 Artificial Tears-Hypromellose Drops 15 Ml Btl BOTH EYES QID PRN Dry Eye(s) Atorvastatin Calcium 40 mg 06/30/24 21:00 06/30/24 21:33 Atorvastatin 40 Mg Tab PO 40 mg HS LYNDSAY Administration Bisacodyl 5 mg 06/30/24 21:00 06/30/24 21:35 Bisacodyl 5 Mg Tablet.Dr PO 5 mg HS LYNDSAY Administration Budesonide/Formoterol Fumarate 2 puff 06/30/24 20:00 06/30/24 19:53 Symbicort 80-4.5 Mcg Inhaler INHALATION 2 puff RT-BID LYNDSAY Administration Clopidogrel Bisulfate 75 mg 07/01/24 09:00 Clopidogrel 75 Mg Tab PO DAILY LYNDSAY Dextrose/Water 25 ml 06/30/24 13:57 Dextrose 50% Syringe 50 Ml IVP PER PROTOCOL PRN Hypoglycemia Protocol Dextrose/Water 50 ml 06/30/24 13:57 Dextrose 50% Syringe 50 Ml IVP PER PROTOCOL PRN Hypoglycemia Protocol Furosemide 80 mg 06/30/24 21:00 06/30/24 21:36 Furosemide 10 Mg/Ml 10 Ml Vial IV 80 mg Q12HR LYNDSAY Administration Heparin Sodium (Porcine) 5,000 unit 06/30/24 16:00 07/01/24 00:35 Heparin Sodium,Porcine 5,000 Unit/Ml 1 Ml Vial SQ 5,000 unit Q8HR LYNDSAY Administration Hydralazine HCl 12.5 mg 06/30/24 16:00 06/30/24 21:35 Hydralazine Hcl 25 Mg Tab PO 12.5 mg TID LYNDSAY Administration Insulin Aspart 2 unit 06/30/24 17:30 07/01/24 06:56 Insulin Aspart (Novolog) 100 Unit/Ml Vial SQ 2 unit AC-TID LYNDSAY Administration Insulin Aspart 0 unit 06/30/24 17:30 07/01/24 06:57 Insulin Aspart (Novolog) 100 Unit/Ml Vial SQ 4 unit ACHS LYNDSAY Administration Protocol Insulin Detemir 15 unit 06/30/24 12:00 07/01/24 06:54 Insulin Detemir (Levemir) 100 Unit/Ml Syr SQ 15 unit DAILY@0700 LYNDSAY Administration Levothyroxine Sodium 176 mcg 07/01/24 06:30 07/01/24 06:53 Levothyroxine 88 Mcg Tab PO 176 mcg 0630 LYNDSAY Administration Magnesium Oxide 400 mg 07/01/24 09:00 Magnesium Oxide 400 Mg Tab PO DAILY LYNDSAY Melatonin 3 mg 06/30/24 13:53 07/01/24 02:39 Melatonin 3 Mg Tablet PO 3 mg HS PRN Administration Insomnia Methocarbamol 750 mg 06/30/24 10:52 Methocarbamol 750 Mg Tab PO Q6H PRN Muscle Spasm Metoprolol Tartrate 12.5 mg 06/30/24 21:00 06/30/24 21:33 Metoprolol Tartrate 12.5 Mg Tab PO 12.5 mg BID LYNDSAY Administration Naloxone HCl 0.2 mg 06/30/24 09:42 Naloxone 0.4 Mg/Ml 1 Ml Vial IVP Q2M PRN Opioid Reversal Ondansetron HCl 4 mg 06/30/24 10:52 06/30/24 14:18 Ondansetron 4 Mg Tab PO 4 mg Q8H PRN Administration Nausea And Vomiting Pantoprazole Sodium 40 mg 07/01/24 07:30 07/01/24 06:54 Pantoprazole 40 Mg Tablet PO 40 mg AC-BRKFST LYNDSAY Administration Tamsulosin HCl 0.4 mg 06/30/24 18:30 06/30/24 18:11 Tamsulosin 0.4 Mg Cap.Er.24h PO 0.4 mg PC-SUPPER LYNDSAY Administration Trazodone HCl 50 mg 06/30/24 21:00 06/30/24 21:35 Trazodone Hcl 50 Mg Tab PO 50 mg HS LYNDSAY Administration Intake and Output 06/30/24 07/01/24 07/01/24 22:59 06:59 14:59 Intake Total 10 10 Output Total 400 Balance 10 10 -400 Intake: IV 10 10 Invasive Line 1 10 10 Output: Urine 400 Straight 400 Other: Voiding Method Bedside Commode Bedside Commode # Voids 0 # Bowel Movements 0 Weight 79.5 kg 06/30/24 07:56 06/30/24 07:56
[2024-07-01 15:55] VITALS: BMI 26.6
[2024-07-01 16:28] LABS: Glucose,Whole Blood 105 mg/dL (70-110)
--- NOTE | 2024-07-01 17:21 | P.CNPUL ---
History of Present Illness Consult date: 07/01/24 Reason for consult: dyspnea History of present illness: This is a 59-year-old female patient who had a prolonged, complicated postoperative course following a cardiac surgery which involved four-vessel bypass surgery. Noted the patient is known to have coronary artery disease, ischemic cardiomyopathy with impaired LV function, chronic stage IV kidney disease that evolved into end-stage renal disease following her surgery and the patient is currently on hemodialysis. She is also known to have COPD, type 1 diabetes, hypertension hyperlipidemia and hypothyroidism and fibromyalgia. She is a former smoker. Noted following her discharge, the patient was hospitalized initially at [facility] and following that at [facility] where she was found to have pleural effusion and the patient underwent a thoracentesis on the right where more than 1 L of pleural fluid was aspirated. The exact fluid characteristics and chemistry is not known at this point. The patient was discharged home to be readmitted to the hospital after she missed 2 sessions of hemodialysis. Apparently, the patient was diagnosed having COVID-19 and she was feeling ill and she was unable to show up on her dialysis sessions. As such, she developed increased edema lower extremities bilaterally and worsening shortness of breath. Currently she is on IV Lasix. She is also going to undergo hemodialysis session today. She has a permacath over the right chest area. She is receiving Lasix 80 mg IV every 12 hours. Urine output is not that abundant. Meanwhile, the white cell count is 4.6 with a hemoglobin of 9.9 and platelet count of 160. Normal coagulation profile, BUN 37 with a creatinine of 2.1 and a sodium levels at 128 with a potassium level of 5.2. Glucose is at 340 this morning. proBNP level is 26,300 and the rest of the LFTs are essentially within normal limits. Initial lactic acid level is at 1.4. Chest x-ray was also reviewed and the patient was found to have bibasilar pulmonary filtrates and small pleural effusion worse on the left compared to the right. Nephrology on the case. The patient was started on empiric antibiotic coverage with IV Rocephin and Zithromax although there is no clear indication for an underlying pneumonia. Rest of the home medications have been resumed. She is on Levemir insulin 25 units daily along with NovoLog 2 units with meals and sliding scale coverage. She is on DuoNeb nebulized treatments [id number]. This point in time, the patient's breathing is nonlabored and the patient's pulse ox 98% on 2 L of oxygen by nasal cannula. Review of Systems Constitutional: Reports fatigue, Reports weakness Eyes: denies as per HPI, denies blurred vision, denies bulging eye, denies decreased vision, denies diplopia, denies discharge, denies dry eye, denies irritation, denies itching, denies pain, denies photophobia, denies loss of peripheral vision, denies loss of vision, denies tunnel vision/blind spots Ears: deny: decreased hearing, ear discharge, earache, tinnitus Ears, nose, mouth and throat: Reports as per HPI Breasts: absent: as per HPI, change in shape, gynecomastia, masses, nipple discharge, pain, skin changes, swelling Cardiovascular: Reports decreased exercise tolerance, Reports edema, Reports shortness of breath Respiratory: Reports dyspnea Gastrointestinal: Reports as per HPI Genitourinary: Reports as per HPI Menstruation: Reports as per HPI Musculoskeletal: Reports as per HPI Musculoskeletal: bilateral: ankle pain, ankle swelling, absent: ankle stiffness Integumentary: Reports as per HPI Neurological: Reports as per HPI, Reports weakness Psychiatric: Reports as per HPI Endocrine: Reports as per HPI, Reports fatigue Hematologic/Lymphatic: Reports as per HPI Allergic/Immunologic: Reports as per HPI Past Medical History Past Medical History: Coronary Artery Disease (CAD), Chest Pain / Angina, Heart Failure, COPD, CVA/TIA, Diabetes Mellitus, Fibromyalgia, GERD/Reflux, Hyperlipidemia, Hypertension, Liver Disease, Myocardial Infarction (AK), Osteoarthritis (OA), Renal Disease, Thyroid Disorder Additional Past Medical History / Comment(s): NEUROPATHY BILATERAL FEET, DDD NECK AND LOWER BACK, hiatal hernia, states no need for BP med anymore(gets orthostatic hypotension-has "medtronic heart loop monitor"), hx hepatitis as a kid, hx fractrured left wrist, hx stroke 03/03/22-problems with balance since. Last Myocardial Infarction Date:: 02/2024 History of Any Multi-Drug Resistant Organisms: MRSA Date of last positivie culture/infection: 2017 MDRO Source:: stomach Past Surgical History: Adenoidectomy, Back Surgery, Bladder Surgery, Hysterectomy, Orthopedic Surgery, Tonsillectomy, Tubal Ligation Additional Past Surgical History / Comment(s): Debridement right foot, PICC line placed and later removed, bladder suspension, exploratory laparotomy, right grea t toe amputation, pins right in foot, cataracts removed, left wrist ORIF, loop heart monitor placed 02/2022. Past Anesthesia/Blood Transfusion Reactions: No Reported Reaction, Motion Sickness Additional Past Anesthesia/Blood Transfusion Reaction / Comment(s): . Type of Cardiac Device: Loop Past Psychological History: Anxiety, Depression Smoking Status: Former smoker Past Alcohol Use History: Occasional Additional Past Alcohol Use History / Comment(s): SMOKER SINCE 1983, 1 PPD. Past Drug Use History: Marijuana, Methamphetamine - Past Family History Sister(s) Family Medical History: Coronary Artery Disease (CAD) Mother Family Medical History: Pulmonary Embolus Additional Family Medical History / Comment(s): . Father Additional Family Medical History / Comment(s): at 26yrs old--accident at work Medications and Allergies Home Medications Medication Instructions Recorded Confirmed Type Levothyroxine Sodium [Synthroid] 175 mcg PO DAILY 02/02/22 06/30/24 History Ondansetron [Zofran] 4 mg PO Q8H PRN 02/06/24 06/30/24 History traZODone HCL [Desyrel] 50 mg PO HS 02/09/24 06/30/24 History Clopidogrel [Plavix] 75 mg PO DAILY tab 03/18/24 06/30/24 Rx Ipratropium-Albuterol Nebulize 3 ml INHALATION RT-Q2H PRN each 03/18/24 06/30/24 Rx [Duoneb 0.5 mg-3 mg/3 ml Soln] Magnesium Oxide [Mag-Ox] 400 mg PO DAILY tab 03/18/24 06/30/24 Rx Pantoprazole [Protonix] 40 mg PO AC-BRKFST tab 03/18/24 06/30/24 Rx Tamsulosin [Flomax] 0.4 mg PO PC-SUPPER cap 03/18/24 06/30/24 Rx Acetaminophen Tab [Tylenol] 650 mg PO Q6H PRN 06/30/24 06/30/24 History Aspirin EC [Ecotrin Low Dose] 81 mg PO DAILY 06/30/24 06/30/24 History Atorvastatin [Lipitor] 40 mg PO HS 06/30/24 06/30/24 History Cephalexin [Keflex] 500 mg PO Q12HR 06/30/24 06/30/24 History Fluticasone/Umeclidin/Vilanter 1 puff INHALATION RT-DAILY 06/30/24 06/30/24 History [Trelegary Ellipta 100-62.5-25] INSULIN ASPART (NovoLOG) [NovoLOG See Protocol SQ AC-TID 06/30/24 06/30/24 History (formulary)] Insulin Glargine,Hum.rec.anlog 15 units SQ DAILY 06/30/24 06/30/24 History [Lantus Solostar Pen] Ipratropium [place] [Atrovent Hfa] 2 puff INHALATION RT-Q6H PRN 06/30/24 06/30/24 History Metoprolol Tartrate [Lopressor] 12.5 mg PO BID 06/30/24 06/30/24 History Polyvinyl Alcohol/Povidone [Clear 1 drop BOTH EYES QID PRN 06/30/24 06/30/24 History Eyes Natural Tears Drop] Torsemide [Demadex] 50 mg PO BID 06/30/24 06/30/24 History bisacodyL [Dulcolax] 5 mg PO HS 06/30/24 06/30/24 History hydrALAZINE HCL [Apresoline] 12.5 mg PO TID 06/30/24 06/30/24 History methocarbamoL [Robaxin-750] 750 mg PO Q6H PRN 06/30/24 06/30/24 History Allergies Allergy/AdvReac Type Severity Reaction Status Date / Time Sulfa (Sulfonamide Allergy Rash/Hives Verified 06/30/24 10:34 Antibiotics) Physical Exam Vitals: Vital Signs Temp Pulse Pulse Resp BP BP Pulse Ox 07/01/24 09:26 96 07/01/24 09:16 92 07/01/24 08:30 97.8 F 85 18 130/74 97 07/01/24 04:00 97.7 F 75 127/68 97 07/01/24 00:00 97.4 F L 86 20 144/67 96 06/30/24 20:00 97.7 F 101 H 20 123/72 95 06/30/24 19:56 101 H 06/30/24 19:52 100 20 119/76 96 06/30/24 19:46 101 H 06/30/24 15:50 98 06/30/24 15:39 98 06/30/24 13:00 100 18 145/83 95 06/30/24 11:49 98 06/30/24 11:35 96 Intake and Output 06/30/24 07/01/24 07/01/24 22:59 06:59 14:59 Intake Total 10 10 240 Output Total 400 Balance 10 10 -160 Intake: IV 10 10 Invasive Line 1 10 10 Oral 240 Output: Urine 400 Straight 400 Other: Voiding Method Bedside Commode Bedside Commode Bedside Commode # Voids 0 # Bowel Movements 0 Weight 79.5 kg General Appearance the patient is coming For Liters of Oxygen by Nasal Cannula. Her Breathing Is Nonlabored and the Patient Is Not Using Accessory Muscles of Breathing. Head exam was generally normal. There was no scleral icterus or corneal arcus. Mucous membranes were moist. Neck was supple and without jugular venous distension, thyromegaly, or carotid bruits. Carotids were easily palpable bilaterally. There was no adenopathy. The patient is a permacath over the right anterior chest area. Lung sounds diminished bilaterally along with bibasilar crackles. Thoracotomy scar is dry clean and intact. Cardiac exam revealed the PMI to be normally situated and sized. The rhythm was regular and no extrasystoles were noted during several minutes of auscultation. The first and second heart sounds were normal and physiologic splitting of the second heart sound was noted. There were no murmurs, rubs, clicks, or gallops. Abdominal exam revealed normal bowel sounds. The abdomen was soft, non-tender, and without masses, organomegaly, or appreciable enlargement of the abdominal aorta. Extremities reveal +1 pitting edema there is no signs of clubbing Neurologically, the patient is awake and alert and the patient does not have any focal neurological deficit. Cranial nerves are essentially intact. There is generalized weakness in all 4 extremities. Results - Laboratory Findings CBC and BMP: 06/30/24 07:56 07/01/24 06:49 PT/INR, D-dimer PT 10.3 sec (10.0-12.5) 06/30/24 07:56 INR 0.9 (<1.2) 06/30/24 07:56 Abnormal lab findings: Abnormal Labs 06/30/24 06/30/24 06/30/24 07:56 07:56 17:15 RBC 3.24 L Hgb 9.9 L Hct 30.6 L Sodium 130 L Potassium 5.7 H BUN 29 H Creatinine 1.78 H Glucose 238 H POC Glucose (mg/dL) 278 H Hemoglobin A1c Calcium 7.4 L AST 37 H Alkaline Phosphatase 132 H Total Protein 5.7 L Albumin 2.7 L 06/30/24 06/30/24 07/01/24 20:31 23:53 06:07 RBC Hgb Hct Sodium Potassium BUN Creatinine Glucose POC Glucose (mg/dL) 322 H 316 H 350 H Hemoglobin A1c Calcium AST Alkaline Phosphatase Total Protein Albumin 07/01/24 06:49 RBC Hgb Hct Sodium Potassium BUN Creatinine Glucose POC Glucose (mg/dL) Hemoglobin A1c 9.7 H Calcium AST Alkaline Phosphatase Total Protein Albumin - Diagnostic Findings Chest x-ray: image reviewed Assessment and Plan Plan: Acute hypoxic respiratory failure, the patient is, 2 L of Oxygen by Nasal Cannula. The Patient Has Some Limited Infiltration and Small effusion lung base bilaterally. The patient had undergone recent thoracentesis of the right lung and this was done at [facility] and the fluid analysis not available at. She does have obvious signs of fluid overload along with CHF. Acute on chronic shortness of breath, likely secondary to above. Predominantly related to fluid overload and CHF. Bilateral effusion, status post right-sided thoracentesis that was done at [facility] approximately 3 weeks ago COVID 19 infection 3 weeks ago Multivessel coronary artery disease and the patient is status post acute non-ST elevation [place], the patient underwent four-vessel bypass surgery off-pump which included sequential RUSSO to To the LAD and diagonal and SVG to PDA and second obtuse marginal branch Ischemic cardiomyopathy with an estimated left ventricular ejection fraction severely impaired at 20 to 25% as well as moderate to severe mitral valve regurgitation Normocytic normochromic anemia, stable hemoglobin ERSRD on HD and the patient is undergoing hemodialysis 3 times a week Chronic obstructive pulmonary disease, stable Diabetes mellitus type 1 History of hyperlipidemia History of hypertension History of CVA/TIA History of hypothyroidism History of fibromyalgia History of GERD Former tobacco smoker as of 55 days ago, before this 1/2 pack/day or approximately 15-year pack history' Previous history of methamphetamine use Plan Agree with the current treatment plan Continue IV Lasix Will need [id number] hemodialysis to optimize her volume status Cardiology consultation Antibiotic coverage essentially empiric Currently on 2 L of oxygen by nasal cannula The pleural fluid seen on the chest x-ray is small and not amenable for thoracen tesis and will be useful to obtain records from [facility] in regards to the chemistry and evaluation that was done on the pleural fluid on the right Chronic debility with multiple comorbidities Consult nephrology Will follow
[2024-07-01] MEDS: CLOPIDOGREL 75 MG TAB PO SCH (18:03)
[2024-07-01] MEDS: MAGNESIUM OXIDE 400 MG TAB PO SCH (18:04)
[2024-07-01] MEDS: AZITHROMYCIN 500 MG in SODIUM CHLORIDE 0.9% 250 ML IVPB SCH (18:04)
[2024-07-01 18:15] LABS: Glucose,Whole Blood 50 mg/dL (70-110)
[2024-07-01] MEDS: DEXTROSE 50% SYRINGE 50 ML IVP PRN (18:23)
[2024-07-01 18:33] LABS: Glucose,Whole Blood 125 mg/dL (70-110)
[2024-07-01 20:40] LABS: Glucose,Whole Blood 117 mg/dL (70-110)
[2024-07-01] MEDS: INSULIN DETEMIR (LEVEMIR) 100 UNIT/ML SYR SQ SCH (20:47)
[2024-07-02 06:23] LABS: Glucose,Whole Blood 115 mg/dL (70-110)
[2024-07-02 08:11] LABS: Basophils % (A) 1 %; Eosinophils # (A) 0.1 k/uL (0-0.7); Eosinophils % (A) 2 %; HCT 31.6 % (34.0-46.0); HGB 9.9 gm/dL (11.4-16.0); Hypochromasia Moderate; Lymphocytes % (A) 20 %; MCH 29.9 pg (25.0-35.0); MCHC 31.2 g/dL (31.0-37.0); MCV 95.9 fL (80.0-100.0); Mean Platelet Volume 8.2; Monocytes # (A) 0.2 k/uL (0-1.0); Monocytes % (A) 5 %; Neutrophils # (A) 3.5 k/uL (1.3-7.7); Neutrophils % (A) 72 %; Platelet Count 220 k/uL (150-450); WBC 4.9 k/uL (3.8-10.6)
[2024-07-02 08:50] LABS: ALT 17 U/L (4-34); AST 25 U/L (14-36); African American GFR (CKD) 39 (>60 ml/min/1.73 sqM); Albumin 2.6 g/dL (3.5-5.0); Alkaline Phosphatase 144 U/L (38-126); Anion Gap 3 mmol/L; Blood Urea Nitrogen 23 mg/dL (7-17); Calcium 7.8 mg/dL (8.4-10.2); Carbon Dioxide 28 mmol/L (22-30); Chloride 99 mmol/L (98-107); Glucose 130 mg/dL (74-99); Magnesium 1.5 mg/dL (1.6-2.3); Non-African American GFR(CKD) 34 (>60 ml/min/1.73 sqM); Potassium 4.9 mmol/L (3.5-5.1); Sodium 130 mmol/L (137-145); Total Bilirubin 0.5 mg/dL (0.2-1.3); Total Protein 5.4 g/dL (6.3-8.2)
--- NOTE | 2024-07-02 10:33 | P.PN ---
Subjective Patient is seen in follow-up for acute kidney injury, hemodialysis dependent. Receiving an extra treatment of dialysis today mostly for ultrafiltration. Currently on 3 L nasal cannula. Hemodynamically stable. Does make urine but not a significant amount. Vital signs are stable. General: No acute distress. HEENT: Head exam is unremarkable. LUNGS: No audible rhonchi or wheezes. HEART: Rate and Rhythm are regular. ABDOMEN: Nontender. EXTREMITITES: 2+ edema. Objective - Vital Signs Vital signs: Vital Signs Temp 97.8 F 07/02/24 09:24 Pulse 85 07/02/24 09:24 Resp 18 07/02/24 09:24 BP 144/87 07/02/24 09:24 Pulse Ox 96 07/02/24 09:24 FiO2 Intake & Output 07/01/24 07/02/24 07/02/24 18:59 06:59 18:59 Intake Total 480 510 250 Output Total 400 5980 Balance 80 -5470 250 Weight 79.5 kg 80.7 kg Intake: IV 10 10 Invasive Line 3 10 10 Oral 480 240 Hemodialysis 500 Output: Urine 400 480 Straight 400 Hemodialysis 3000 Hemodialysis Net Amount 2500 Other: Voiding Method Bedside Commode Bedside Commode Bedside Commode - Labs CBC & Chem 7: 07/02/24 07:17 07/02/24 07:17 Labs: Abnormal Lab Results - Last 24 Hours (Table) 07/01/24 07/01/24 07/01/24 Range/Units 06:49 06:49 11:45 RBC (3.80-5.40) m/uL Hgb (11.4-16.0) gm/dL Hct (34.0-46.0) % Sodium 128 L (137-145) mmol/L Potassium 5.2 H (3.5-5.1) mmol/L BUN 37 H (7-17) mg/dL Creatinine 2.19 H (0.52-1.04) mg/dL Glucose 340 H (74-99) mg/dL POC Glucose (mg/dL) 228 H (70-110) mg/dL Hemoglobin A1c 9.7 H (<=6.0) % Calcium 8.1 L (8.4-10.2) mg/dL Magnesium (1.6-2.3) mg/dL Alkaline Phosphatase (38-126) U/L Total Protein (6.3-8.2) g/dL Albumin (3.5-5.0) g/dL 07/01/24 07/01/24 07/01/24 Range/Units 18:13 18:32 20:38 RBC (3.80-5.40) m/uL Hgb (11.4-16.0) gm/dL Hct (34.0-46.0) % Sodium (137-145) mmol/L Potassium (3.5-5.1) mmol/L BUN (7-17) mg/dL Creatinine (0.52-1.04) mg/dL Glucose (74-99) mg/dL POC Glucose (mg/dL) 50 L 125 H 117 H (70-110) mg/dL Hemoglobin A1c (<=6.0) % Calcium (8.4-10.2) mg/dL Magnesium (1.6-2.3) mg/dL Alkaline Phosphatase (38-126) U/L Total Protein (6.3-8.2) g/dL Albumin (3.5-5.0) g/dL 07/02/24 07/02/24 07/02/24 Range/Units 06:21 07:17 07:17 RBC 3.30 L (3.80-5.40) m/uL Hgb 9.9 L (11.4-16.0) gm/dL Hct 31.6 L (34.0-46.0) % Sodium 130 L (137-145) mmol/L Potassium (3.5-5.1) mmol/L BUN 23 H (7-17) mg/dL Creatinine 1.63 H (0.52-1.04) mg/dL Glucose 130 H (74-99) mg/dL POC Glucose (mg/dL) 115 H (70-110) mg/dL Hemoglobin A1c (<=6.0) % Calcium 7.8 L (8.4-10.2) mg/dL Magnesium 1.5 L (1.6-2.3) mg/dL Alkaline Phosphatase 144 H (38-126) U/L Total Protein 5.4 L (6.3-8.2) g/dL Albumin 2.6 L (3.5-5.0) g/dL Assessment and Plan Plan: Assessment: 1. Acute kidney injury secondary to ATN secondary to cardiorenal syndrome, hemodialysis dependent. Maintained on hemodialysis on Monday schedule via permacath. 2. Volume overload. 3. Recent COVID-19 infection. Concern for superimposed bacterial pneumonia. On antibiotics. 4. Coronary disease status post CABG. 5. Diabetes mellitus. 6. Hypertension with chronic kidney disease. Stable. 7. Hyperkalemia secondary to chronic kidney disease. That was a hemolyzed samp le. Status post Lokelma. Resolved. 8. Anemia of chronic kidney disease. Rule out iron deficiency. 9. Hypervolemic hyponatremia. Better postdialysis. 10. Acute on chronic systolic CHF with severe mitral and tricuspid regurgitation. Plan: Currently seen while undergoing hemodialysis. Another treatment tomorrow per her outpatient schedule. Stop IV Lasix. Add torsemide 40 mg once daily. Follow-up iron studies. Monitor for renal recovery outpatient. Replace magnesium.
--- NOTE | 2024-07-02 11:36 | P.PN ---
Subjective Progress Note Date: 07/02/24 59-year-old F with PMH of ESRD on HD followed by Dr. Davies, systolic CHF EF 15- 20%, COPD, DM, and multiple other comorbid conditions who presented with shortness of breath since open heart surgery in February. She then had COVID several weeks ago. She reports recent hospitalizations at [facility] and [facility] and states she had an echo which showed EF of approximately 25%. In the ER she underwent extensive evaluation. BP 137/83, HR 86, T 97.6F, RR 18, 96% on 2L. CBC, Coag panel, CMP significant for RBC 3.24, Hg 9.9, Hct 30.6, Na 130, K 5.7, BUN 29, Cr 1.78, glu 238, Ca 7.4, AST 37, alk phos 132, alb 2.7. Lactic acid 1.7. Mag 1.6. CXR showed signs of pulmonary edema. She was started on Lasix with Cardiology and Nephrology on consultation. Cardiology consulted, Lasix 80 mg IV BID. Nephrology consulted to resume HD. Echo from [facility] showed EF 30-35%, global hypokinesis, mild-mod AR, severe MR/TR, mild [place], trace pericardiac effusion. Empirically started on Rocephin/Azithromycin for concerns of superimposed PNA, Pulmonary consulted. 07/02 Patient was seen and examined. Breathing better. HD today. 400 cc urine output over the past 24H. HD removed net 2500 cc. Weight 79-80.7kg.Procal 0.41. CBC and CMP significant for RBC 3.3, Hg 9.9, Hct 31.6, Na 130, BUN 23, Cr 1.63, Ca 7.8, alk phos 144, alb 2.6. Mag 1.5. General: non toxic, no distress, appears at stated age Derm: warm, dry Head: atraumatic, normocephalic, symmetric Eyes: EOMI, no lid lag, anicteric sclera Mouth: no lip lesion, mucus membranes moist Cardiovascular: S1S2 reg, systolic + diastolic murmur Lungs: CTA bilateral, no rhonchi, no rales , no accessory muscle use Abdominal: soft, nontender to palpation, no guarding, no appreciable organomegaly Ext: no gross muscle atrophy, 2+ LE edema, no contractures Neuro: no focal neuro deficits Psych: Alert, oriented, appropriate affect Based on my assessment of this patient, this patient meets a high complexity level of care. Exacerbation of systolic CHF: Echo EF 30-35%. Metoprolol 12.5 mg PO BID. Lasix IV stopped by Nephro and started on Torsemide 40 mg PO QD. Nephrology for HD. 2L fluid restriction. Monitor renal function and electrolytes. Strict intake and outtake. Daily weights. Cardiology on board. HypoMag Mag sulfate x 1. Repeat tomorrow. ESRD: Nephrology consulted to resume HD on MWF schedule. Normocytic anemia appears at baseline likely AOCD from ESRD Hyponatremia: Likely hypervolemic. Hopeful improvement with Lasix and ESRD. DM with Hyperglycemia: POC glucose 50-350 over the past 24H. ISS. Novolog 2 units TID. Levemir 25 mg PO QHS. Dyslipidemia: Lipitor 40 mg PO QHS. Coronary artery disease s/p CABG: Plavix 75 mg PO QD. COPD without exacerbation: DuoNeb scheduled and PRN for SOB/wheezing. Symbicort 2 INH BID. LLE wound likely due to volume overload does not appear to be infected. Hypertension: Metoprolol as above. Hydralazine 12.5 mg PO TID. Hypothyroidism: Synthroid 176 mcg PO QD. Resolved: HyperK Procal negative. Low concerns for PNA. Discontinue Abx for now. CODE STATUS: FULL CODE. DVT Prophylaxis: Heparin SQ. GI Prophylaxis: Protonix PO Designated medical POA if patient is not able to make medical decisions for themselves: I have reviewed the following networks software consultant notes: Nephrology I have reviewed the results of the following tests: CBC and CMP I have ordered the following tests: Daily BMP to evaluate renal function. Mag. I have discussed the care of this patient with the following independent his jodi: I have independently interpreted the following test below: I have discussed the management of this patient with the following physician: Objective - Vital Signs Vital signs: Vital Signs Temp 97.9 F 07/02/24 04:00 Pulse 87 07/02/24 04:00 Resp 16 07/02/24 04:00 BP 157/80 07/02/24 04:00 Pulse Ox 97 07/02/24 04:00 FiO2 Intake & Output 09/23/24 09/24/24 09/24/24 18:59 06:59 18:59 Intake Total 480 510 Output Total 400 5980 Balance 80 -5470 Weight 79.5 kg 80.7 kg Intake: IV 10 Invasive Line 3 10 Oral 480 Hemodialysis 500 Output: Urine 400 480 Straight 400 Hemodialysis 3000 Hemodialysis Net Amount 2500 Other: Voiding Method Bedside Commode Bedside Commode - Labs CBC & Chem 7: 07/02/24 07:17 07/02/24 07:17 Labs: Abnormal Lab Results - Last 24 Hours (Table) 07/01/24 07/01/24 07/01/24 Range/Units 06:49 06:49 11:45 Sodium 128 L (137-145) mmol/L Potassium 5.2 H (3.5-5.1) mmol/L BUN 37 H (7-17) mg/dL Creatinine 2.19 H (0.52-1.04) mg/dL Glucose 340 H (74-99) mg/dL POC Glucose (mg/dL) 228 H (70-110) mg/dL Hemoglobin A1c 9.7 H (<=6.0) % Calcium 8.1 L (8.4-10.2) mg/dL 07/01/24 07/01/24 07/01/24 Range/Units 18:13 18:32 20:38 Sodium (137-145) mmol/L Potassium (3.5-5.1) mmol/L BUN (7-17) mg/dL Creatinine (0.52-1.04) mg/dL Glucose (74-99) mg/dL POC Glucose (mg/dL) 50 L 125 H 117 H (70-110) mg/dL Hemoglobin A1c (<=6.0) % Calcium (8.4-10.2) mg/dL 07/02/24 Range/Units 06:21 Sodium (137-145) mmol/L Potassium (3.5-5.1) mmol/L BUN (7-17) mg/dL Creatinine (0.52-1.04) mg/dL Glucose (74-99) mg/dL POC Glucose (mg/dL) 115 H (70-110) mg/dL Hemoglobin A1c (<=6.0) % Calcium (8.4-10.2) mg/dL
[2024-07-02 11:49] LABS: Glucose,Whole Blood 223 mg/dL (70-110)
[2024-07-02] MEDS: MAGNESIUM SULFATE-D5W PMX 1 GM in DEXTROSE/WATER 1 100ML.BAG IVPB SCH (12:17)
--- NOTE | 2024-07-02 14:16 | P.PN ---
Subjective Progress Note Date: 07/02/24 This is a 59-year-old female patient who had a prolonged, complicated postoperative course following a cardiac surgery which involved four-vessel bypass surgery. Noted the patient is known to have coronary artery disease, ischemic cardiomyopathy with impaired LV function, chronic stage IV kidney disease that evolved into end-stage renal disease following her surgery and the patient is currently on hemodialysis. She is also known to have COPD, type 1 diabetes, hypertension hyperlipidemia and hypothyroidism and fibromyalgia. She is a former smoker. Noted following her discharge, the patient was hospitalized initially at [facility] and following that at [facility] where she was found to have pleural effusion and the patient underwent a thoracentesis on the right where more than 1 L of pleural fluid was aspirated. The exact fluid characteristics and chemistry is not known at this point. The patient was discharged home to be readmitted to the hospital after she missed 2 sessions of hemodialysis. Apparently, the patient was diagnosed having COVID-19 and she was feeling ill and she was unable to show up on her dialysis sessions. As such, she developed increased edema lower extremities bilaterally and worsening shortness of breath. Currently she is on IV Lasix. She is also going to undergo hemodialysis session today. She has a permacath over the right chest area. She is receiving Lasix 80 mg IV every 12 hours. Urine output is not that abundant. Meanwhile, the white cell count is 4.6 with a hemoglobin of 9.9 and platelet count of 160. Normal coagulation profile, BUN 37 with a creatinine of 2.1 and a sodium levels at 128 with a potassium level of 5.2. Glucose is at 340 this morning. proBNP level is 26,300 and the rest of the LFTs are essentially within normal limits. Initial lactic acid level is at 1.4. Chest x-ray was also reviewed and the patient was found to have bibasilar pulmonary filtrates and small pleural effusion worse on the left compared to the right. Nephrology on the case. The patient was started on empiric antibiotic coverage with IV Rocephin and Zithromax although there is no clear indication for an underlying pneumonia. Rest of the home medications have been resumed. She is on Levemir insulin 25 units daily along with NovoLog 2 units with meals and sliding scale coverage. She is on DuoNeb nebulized treatments [id number]. This point in time, the patient's breathing is nonlabored and the patient's pulse ox 98% on 2 L of oxygen by nasal cannula. On 07/02/2024, I am seeing the patient for a follow-up. The patient is stable for now and she does not have any significant respiratory distress patient underwent hemodialysis yesterday with a total of 2.5 L of ultrafiltration and the second session of hemodialysis being done this morning. The patient has no chest pain. No fever. No chills. No hemodynamic instability. She remains on oxygen 2 L/min nasal cannula. The white cell count from today is 4.9 with a hemoglobin 9.9. BUN 23 with a creatinine of 1.6 and a sodium levels at 130. The patient remains on DuoNeb nebulized treatments [id number]. The patient on Symbicort. The patient is currently on torsemide 40 mg p.o. daily and IV Lasix has been discontinued. She remains on Levemir insulin 25 units daily and NovoLog 2 units with meal and sliding scale coverage. Nephrology on the case. The chest x-ray was noted and there is no need for thoracentesis the patient's pleural effusions are essentially small and the patient will respond to hemodialysis and ultrafiltration. Objective - Vital Signs Vital signs: Vital Signs Temp 97.8 F 07/02/24 09:24 Pulse 85 07/02/24 09:24 Resp 18 07/02/24 09:24 BP 144/87 07/02/24 09:24 Pulse Ox 96 07/02/24 09:24 FiO2 Intake & Output 07/01/24 07/02/24 07/02/24 18:59 06:59 18:59 Intake Total 480 510 250 Output Total 400 5980 Balance 80 -5470 250 Weight 79.5 kg 80.7 kg Intake: IV 10 10 Invasive Line 3 10 10 Oral 480 240 Hemodialysis 500 Output: Urine 400 480 Straight 400 Hemodialysis 3000 Hemodialysis Net Amount 2500 Other: Voiding Method Bedside Commode Bedside Commode Bedside Commode - Exam General Appearance the patient is coming For Liters of Oxygen by Nasal Cannula. Her Breathing Is Nonlabored and the Patient Is Not Using Accessory Muscles of Breathing. Head exam was generally normal. There was no scleral icterus or corneal arcus. Mucous membranes were moist. Neck was supple and without jugular venous distension, thyromegaly, or carotid bruits. Carotids were easily palpable bilaterally. There was no adenopathy. The patient is a permacath over the right anterior chest area. Lung sounds diminished bilaterally along with bibasilar crackles. Thoracotomy scar is dry clean and intact. Cardiac exam revealed the PMI to be normally situated and sized. The rhythm was regular and no extrasystoles were noted during several minutes of auscultation. The first and second heart sounds were normal and physiologic splitting of the second heart sound was noted. There were no murmurs, rubs, clicks, or gallops. Abdominal exam revealed normal bowel sounds. The abdomen was soft, non-tender, and without masses, organomegaly, or appreciable enlargement of the abdominal aorta. Extremities reveal +1 pitting edema there is no signs of clubbing Neurologically, the patient is awake and alert and the patient does not have any focal neurological deficit. Cranial nerves are essentially intact. There is generalized weakness in all 4 extremities. - Labs CBC & Chem 7: 07/02/24 07:17 07/02/24 07:17 Labs: Abnormal Lab Results - Last 24 Hours (Table) 07/01/24 07/01/24 07/01/24 Range/Units 06:49 11:45 18:13 RBC (3.80-5.40) m/uL Hgb (11.4-16.0) gm/dL Hct (34.0-46.0) % Sodium 128 L (137-145) mmol/L Potassium 5.2 H (3.5-5.1) mmol/L BUN 37 H (7-17) mg/dL Creatinine 2.19 H (0.52-1.04) mg/dL Glucose 340 H (74-99) mg/dL POC Glucose (mg/dL) 228 H 50 L (70-110) mg/dL Calcium 8.1 L (8.4-10.2) mg/dL Magnesium (1.6-2.3) mg/dL Alkaline Phosphatase (38-126) U/L Total Protein (6.3-8.2) g/dL Albumin (3.5-5.0) g/dL 07/01/24 07/01/24 07/02/24 Range/Units 18:32 20:38 06:21 RBC (3.80-5.40) m/uL Hgb (11.4-16.0) gm/dL Hct (34.0-46.0) % Sodium (137-145) mmol/L Potassium (3.5-5.1) mmol/L BUN (7-17) mg/dL Creatinine (0.52-1.04) mg/dL Glucose (74-99) mg/dL POC Glucose (mg/dL) 125 H 117 H 115 H (70-110) mg/dL Calcium (8.4-10.2) mg/dL Magnesium (1.6-2.3) mg/dL Alkaline Phosphatase (38-126) U/L Total Protein (6.3-8.2) g/dL Albumin (3.5-5.0) g/dL 07/02/24 07/02/24 Range/Units 07:17 07:17 RBC 3.30 L (3.80-5.40) m/uL Hgb 9.9 L (11.4-16.0) gm/dL Hct 31.6 L (34.0-46.0) % Sodium 130 L (137-145) mmol/L Potassium (3.5-5.1) mmol/L BUN 23 H (7-17) mg/dL Creatinine 1.63 H (0.52-1.04) mg/dL Glucose 130 H (74-99) mg/dL POC Glucose (mg/dL) (70-110) mg/dL Calcium 7.8 L (8.4-10.2) mg/dL Magnesium 1.5 L (1.6-2.3) mg/dL Alkaline Phosphatase 144 H (38-126) U/L Total Protein 5.4 L (6.3-8.2) g/dL Albumin 2.6 L (3.5-5.0) g/dL Assessment and Plan Plan: Acute hypoxic respiratory failure, the patient is, 2 L of Oxygen by Nasal Cannula. The Patient Has Some Limited Infiltration and Small effusion lung base bilaterally. The patient had undergone recent thoracentesis of the right lung and this was done at [facility] and the fluid analysis not available at. She does have obvious signs of fluid overload along with CHF. The patient is undergoing hemodialysis. First session was done yesterday and second session is being done today and she has no interval worsening in oxygenation or respiratory status. Acute on chronic shortness of breath, likely secondary to above. Predominantly related to fluid overload and CHF. Bilateral effusion, status post right-sided thoracentesis that was done at [facility] approximately 3 weeks ago COVID 19 infection 3 weeks ago Multivessel coronary artery disease and the patient is status post acute non-ST elevation CA, the patient underwent four-vessel bypass surgery off-pump which included sequential RUSSO to To the LAD and diagonal and SVG to PDA and second obtuse marginal branch Ischemic cardiomyopathy with an estimated left ventricular ejection fraction severely impaired at 20 to 25% as well as moderate to severe mitral valve regurgitation Normocytic normochromic anemia, stable hemoglobin ERSRD on HD and the patient is undergoing hemodialysis 3 times a week Chronic obstructive pulmonary disease, stable Diabetes mellitus type 1 History of hyperlipidemia History of hypertension History of CVA/TIA History of hypothyroidism History of fibromyalgia History of GERD Former tobacco smoker as of 55 days ago, before this 1/2 pack/day or approximately 15-year pack history' Previous history of methamphetamine use Plan Agree with the current treatment plan, continue hemodialysis with ultrafiltration. Diuretics has been switched to torsemide 40 mg p.o. daily. Antibiotic coverage essentially empiric, this could be potentially discontinued Currently on 2 L of oxygen by nasal cannula The pleural fluid seen on the chest x-ray is small and not amenable for thoracentesis and will be useful to obtain records from [facility] in regards to the chemistry and evaluation that was done on the pleural fluid on the right Chronic debility with multiple comorbidities Consult nephrology Will follow
--- NOTE | 2024-07-02 14:26 | P.PN ---
Subjective Progress Note Date: 07/02/24 Reason for Consult (text): Heart failure History of present illness: This is 59-year-old patient of Dr. Saunders with past medical history of coronary artery disease, CVA, hypertension, hypothyroidism, diabetes mellitus type 2, end-stage renal disease on dialysis, remote history of tobacco use and dependence, COPD. We have been asked to evaluate the patient for heart failure. Patient was recently hospitalized in January through March 2024 for non-ST elevated myocardial infarction and heart failure with reduced EF, and underwent CABG x 4 on 02/25 with sequential left internal mammary artery to left anterior descending coronary artery and diagonal coronary artery, reverse saphenous vein graft to the posterior descending coronary artery and second obtuse marginal coronary artery, closure of the left atrial appendage. During that hospitalization, patient was started on hemodialysis and she also had a postop episode of paroxysmal atrial fibrillation. We have been asked to evaluate the patient for heart failure. Patient developed shortness of breath couple weeks ago that had worsened over the past few days. She was positive for COVID-19 2 weeks ago. Positive cough with clear sputum production. She has missed dialysis treatments since she has been ill. She states she was at [facility] had an echocardiogram done there recently and was also at [facility] had the right side of her lungs drained. Patient states that she was just discharged from [facility] on Monday. She states she has always nauseated. No blood in her stools or urine. She denies any use of caffeine or alcohol. Blood pressure 127/68, heart rate 75, pulse ox 97% on 2 L nasal cannula. Patient received 1 dose of IV steroids, Nitro-Bid and started on IV Lasix 80 mg every 12 hours. EKG: Sinus rhythm with IVCD Chest x-ray: Worsening bibasilar infiltrates and small left pleural effusion. Laboratory studies: WBC 4.6, hemoglobin 9.9. Sodium 130, potassium 5.7, BUN 29, creatinine 1.78. Glucose 238. proBNP 26,300. Troponin 0.016. Alkaline p hosphatase 132, AST 37. Home cardiac medications: Aspirin 81 mg daily, Lipitor 40 mg at bedtime, Plavix 75 mg daily, hydralazine 12.5 mg 3 times daily, magnesium oxide 400 mg daily, Lopressor 12.5 mg twice daily, Demadex 50 mg twice daily, patient also on levothyroxine 175 mcg daily. [place] performed on 02/06/2024 revealed: Mild mitral regurgitation, mild tricuspid regurgitation, no PFO, left atrial appendage free of clot, EF 35% with global hypokinesis. Cardiac catheterization performed 02/06/2024 revealed calcified coronary arteries, severe triple-vessel disease, right dominance, mildly elevated LVEDP. Echocardiogram performed on 03/05/2024 revealed EF of 15 to 20% severely reduced global left ventricular systolic function, a typical septal motion with intraventricular dyssynchrony. No obvious evidence of LV thrombus. No pericardial effusion. Echocardiogram performed on 06/18/[address] [facility] revealed EF of 30%. Severe mitral and tricuspid regurgitation. Mild to moderate aortic insufficiency. No significant pericardial effusion. 07/02 Patient is seen today in follow-up. She is receiving hemodialysis today. No complaints of chest pain, shortness of breath is stable. Blood pressure 144/87, heart rate 85, pulse ox 96% on 3 L nasal cannula. Repeat blood work reveals WBC 4.9, hemoglobin 9.9. BUN 23 creatinine 1.63. IV Lasix has been discontinued by nephrology and patient started on oral torsemide. Information from [facility] has not been obtained. Physical examination: Gen: This is a 59-year-old female appears to be in no acute distress VS: reviewed HEENT: Head is atraumatic, normocephalic. Pupils equal, round. Sclerae is anicteric. NECK: Supple. No JVD. LUNGS: Diminished breath sounds. Bilateral wheeze no intercostal retractions. HEART: Regular rate and rhythm. No murmur. ABDOMEN: Soft No tenderness. EXTREMITIES: Bilateral lower extremity edema. No calf tenderness. NEUROLOGICAL: Patient is awake, alert and oriented x3. Assessment: Acute on chronic systolic heart failure Ischemic cardiomyopathy Coronary artery disease status post CABG Recent COVID-19 2 weeks ago Hypertension CVA Diabetes mellitus type 2 End-stage renal disease on hemodialysis Remote history of tobacco use and dependence COPD Plan: Continue patient's home cardiac medications Increase hydralazine to 25 mg 3 times daily Change Lopressor to metoprolol succinate 25 mg daily Obtain records from [facility] Continue patient on torsemide 40 mg daily per nephrology Nephrology on consult for dialysis Monitor [place]IO, daily weights, electrolytes and renal function Further recommendations to follow based upon clinical course Nurse practitioner note has been reviewed, I agree with documented findings and plan of care. Patient was seen and examined. Objective - Vital Signs Vital signs: Vital Signs Temp 97.8 F 07/02/24 09:24 Pulse 87 07/02/24 12:26 Resp 16 07/02/24 12:26 BP 152/66 07/02/24 12:26 Pulse Ox 94 L 07/02/24 12:26 FiO2 Intake & Output 07/01/24 07/02/24 07/02/24 18:59 06:59 18:59 Intake Total 480 510 490 Output Total 400 5980 Balance 80 -5470 490 Weight 79.5 kg 80.7 kg Intake: IV 10 10 Invasive Line 3 10 10 Oral 480 480 Hemodialysis 500 Output: Urine 400 480 Straight 400 Hemodialysis 3000 Hemodialysis Net Amount 2500 Other: Voiding Method Bedside Commode Bedside Commode Bedside Commode - Labs CBC & Chem 7: 07/02/24 07:17 07/02/24 07:17 Labs: Abnormal Lab Results - Last 24 Hours (Table) 07/01/24 07/01/24 07/01/24 Range/Units 18:13 18:32 20:38 RBC (3.80-5.40) m/uL Hgb (11.4-16.0) gm/dL Hct (34.0-46.0) % Sodium (137-145) mmol/L BUN (7-17) mg/dL Creatinine (0.52-1.04) mg/dL Glucose (74-99) mg/dL POC Glucose (mg/dL) 50 L 125 H 117 H (70-110) mg/dL Calcium (8.4-10.2) mg/dL Magnesium (1.6-2.3) mg/dL Alkaline Phosphatase (38-126) U/L Total Protein (6.3-8.2) g/dL Albumin (3.5-5.0) g/dL 07/02/24 07/02/24 07/02/24 Range/Units 06:21 07:17 07:17 RBC 3.30 L (3.80-5.40) m/uL Hgb 9.9 L (11.4-16.0) gm/dL Hct 31.6 L (34.0-46.0) % Sodium 130 L (137-145) mmol/L BUN 23 H (7-17) mg/dL Creatinine 1.63 H (0.52-1.04) mg/dL Glucose 130 H (74-99) mg/dL POC Glucose (mg/dL) 115 H (70-110) mg/dL Calcium 7.8 L (8.4-10.2) mg/dL Magnesium 1.5 L (1.6-2.3) mg/dL Alkaline Phosphatase 144 H (38-126) U/L Total Protein 5.4 L (6.3-8.2) g/dL Albumin 2.6 L (3.5-5.0) g/dL 07/02/24 Range/Units 11:47 RBC (3.80-5.40) m/uL Hgb (11.4-16.0) gm/dL Hct (34.0-46.0) % Sodium (137-145) mmol/L BUN (7-17) mg/dL Creatinine (0.52-1.04) mg/dL Glucose (74-99) mg/dL POC Glucose (mg/dL) 223 H (70-110) mg/dL Calcium (8.4-10.2) mg/dL Magnesium (1.6-2.3) mg/dL Alkaline Phosphatase (38-126) U/L Total Protein (6.3-8.2) g/dL Albumin (3.5-5.0) g/dL
[2024-07-02] MEDS: hydrALAZINE HCL 25 MG TAB PO SCH (15:56)
[2024-07-02 16:53] LABS: Glucose,Whole Blood 240 mg/dL (70-110)
[2024-07-02 20:12] LABS: Glucose,Whole Blood 50 mg/dL (70-110)
[2024-07-02 21:07] LABS: Glucose,Whole Blood 124 mg/dL (70-110)
[2024-07-03 06:02] LABS: Glucose,Whole Blood 319 mg/dL (70-110)
[2024-07-03 08:56] LABS: African American GFR (CKD) 33 (>60 ml/min/1.73 sqM); Anion Gap 2 mmol/L; Blood Urea Nitrogen 25 mg/dL (7-17); Calcium 7.8 mg/dL (8.4-10.2); Carbon Dioxide 28 mmol/L (22-30); Chloride 100 mmol/L (98-107); Glucose 217 mg/dL (74-99); Magnesium 1.9 mg/dL (1.6-2.3); Non-African American GFR(CKD) 28 (>60 ml/min/1.73 sqM); Potassium 4.4 mmol/L (3.5-5.1); Sodium 130 mmol/L (137-145)
[2024-07-03 11:26] LABS: Glucose,Whole Blood 311 mg/dL (70-110)
--- NOTE | 2024-07-03 11:46 | P.PN ---
Subjective Patient is seen in follow-up for acute kidney injury, hemodialysis dependent. Received extra treatment of dialysis yesterday. Currently on 2 L nasal cannula. Hemodynamically stable. Does make urine but not a significant amount. Vital signs are stable. General: No acute distress. HEENT: Head exam is unremarkable. LUNGS: No audible rhonchi or wheezes. HEART: Rate and Rhythm are regular. ABDOMEN: Nontender. EXTREMITITES: 2+ edema. Objective - Vital Signs Vital signs: Vital Signs Temp 97.6 F 07/03/24 11:37 Pulse 82 07/03/24 11:37 Resp 16 07/03/24 11:37 BP 126/78 07/03/24 11:37 Pulse Ox 97 07/03/24 11:37 FiO2 Intake & Output 07/02/24 07/03/24 07/03/24 18:59 06:59 18:59 Intake Total 500 540 118 Output Total 0 200 Balance 500 340 118 Weight 77 kg Intake: IV 20 Invasive Line 3 20 Oral 480 540 118 Output: Urine 0 200 Other: Voiding Method Bedside Commode Bedside Commode Bedside Commode - Labs CBC & Chem 7: 07/02/24 07:17 07/03/24 08:30 Labs: Abnormal Lab Results - Last 24 Hours (Table) 07/02/24 07/02/24 07/02/24 Range/Units 11:47 16:51 20:11 Sodium (137-145) mmol/L BUN (7-17) mg/dL Creatinine (0.52-1.04) mg/dL Glucose (74-99) mg/dL POC Glucose (mg/dL) 223 H 240 H 50 L (70-110) mg/dL Calcium (8.4-10.2) mg/dL 07/02/24 07/03/24 07/03/24 Range/Units 21:06 06:00 08:30 Sodium 130 L (137-145) mmol/L BUN 25 H (7-17) mg/dL Creatinine 1.90 H (0.52-1.04) mg/dL Glucose 217 H (74-99) mg/dL POC Glucose (mg/dL) 124 H 319 H (70-110) mg/dL Calcium 7.8 L (8.4-10.2) mg/dL 07/03/24 Range/Units 11:23 Sodium (137-145) mmol/L BUN (7-17) mg/dL Creatinine (0.52-1.04) mg/dL Glucose (74-99) mg/dL POC Glucose (mg/dL) 311 H (70-110) mg/dL Calcium (8.4-10.2) mg/dL Microbiology - Last 24 Hours (Table) 07/01/24 13:01 Blood Culture - Preliminary Blood Assessment and Plan Plan: Assessment: 1. Acute kidney injury secondary to ATN secondary to cardiorenal syndrome, hemodialysis dependent. Maintained on hemodialysis on Monday schedule via permacath. 2. Volume overload. Improving with ultrafiltration. 3. Recent COVID-19 infection. Concern for superimposed bacterial pneumonia. On antibiotics. 4. Coronary disease status post CABG. 5. Diabetes mellitus. 6. Hypertension with chronic kidney disease. Stable. 7. Hyperkalemia secondary to chronic kidney disease. That was a hemolyzed sample. Status post Lokelma. Resolved. 8. Anemia of chronic kidney disease. Rule out iron deficiency. 9. Hypervolemic hyponatremia. Better postdialysis. 10. Acute on chronic systolic CHF with severe mitral and tricuspid regurgitation. Plan: Hemodialysis today. Another treatment tomorrow mostly for ultrafiltration. Maintain torsemide. Follow-up iron studies. Monitor for renal recovery outpatient.
--- NOTE | 2024-07-03 12:38 | P.PN ---
Subjective Progress Note Date: 07/03/24 Reason for Consult (text): Heart failure History of present illness: This is 59-year-old patient of Dr. Saunders with past medical history of coronary artery disease, CVA, hypertension, hypothyroidism, diabetes mellitus type 2, end-stage renal disease on dialysis, remote history of tobacco use and dependence, COPD. We have been asked to evaluate the patient for heart failure. Patient was recently hospitalized in January through March 2024 for non-ST elevated myocardial infarction and heart failure with reduced EF, and underwent CABG x 4 on 02/25 with sequential left internal mammary artery to left anterior descending coronary artery and diagonal coronary artery, reverse saphenous vein graft to the posterior descending coronary artery and second obtuse marginal coronary artery, closure of the left atrial appendage. During that hospitalization, patient was started on hemodialysis and she also had a postop episode of paroxysmal atrial fibrillation. We have been asked to evaluate the patient for heart failure. Patient developed shortness of breath couple weeks ago that had worsened over the past few days. She was positive for COVID-19 2 weeks ago. Positive cough with clear sputum production. She has missed dialysis treatments since she has been ill. She states she was at [facility] had an echocardiogram done there recently and was also at [facility] had the right side of her lungs drained. Patient states that she was just discharged from [place] on Monday. She states she has always nauseated. No blood in her stools or urine. She denies any use of caffeine or alcohol. Blood pressure 127/68, heart rate 75, pulse ox 97% on 2 L nasal cannula. Patient received 1 dose of IV steroids, Nitro-Bid and started on IV Lasix 80 mg every 12 hours. EKG: Sinus rhythm with IVCD Chest x-ray: Worsening bibasilar infiltrates and small left pleural effusion. Laboratory studies: WBC 4.6, hemoglobin 9.9. Sodium 130, potassium 5.7, BUN 29, creatinine 1.78. Glucose 238. proBNP 26,300. Troponin 0.016. Alkaline p hosphatase 132, AST 37. Home cardiac medications: Aspirin 81 mg daily, Lipitor 40 mg at bedtime, Plavix 75 mg daily, hydralazine 12.5 mg 3 times daily, magnesium oxide 400 mg daily, Lopressor 12.5 mg twice daily, Demadex 50 mg twice daily, patient also on levothyroxine 175 mcg daily. [place] performed on 02/06/2024 revealed: Mild mitral regurgitation, mild tricuspid regurgitation, no PFO, left atrial appendage free of clot, EF 35% with global hypokinesis. Cardiac catheterization performed 02/06/2024 revealed calcified coronary arteries, severe triple-vessel disease, right dominance, mildly elevated LVEDP. Echocardiogram performed on 03/05/2024 revealed EF of 15 to 20% severely reduced global left ventricular systolic function, a typical septal motion with intraventricular dyssynchrony. No obvious evidence of LV thrombus. No pericardial effusion. Echocardiogram performed on 06/18/2024 at [facility] revealed EF of 30%. Severe mitral and tricuspid regurgitation. Mild to moderate aortic insufficiency. No significant pericardial effusion. 07/02 Patient is seen today in follow-up. She is receiving hemodialysis today. No complaints of chest pain, shortness of breath is stable. Blood pressure 144/87, heart rate 85, pulse ox 96% on 3 L nasal cannula. Repeat blood work reveals WBC 4.9, hemoglobin 9.9. BUN 23 creatinine 1.63. IV Lasix has been discontinued by nephrology and patient started on oral torsemide. Information from [facility] has not been obtained. 07/03 Patient states that she is feeling better today. Breathing is improved. She is undergoing HD today and tomorrow. Lower extremity edema is improved. She denies having chest pain, no dizziness. Blood pressure 119/73, heart rate 82, pulse ox 97% on 2 L nasal cannula. Repeat blood work reveals sodium 130, potassium 4.4, BUN 25 and creatinine 1.9. Documentation from [facility] has not been obtained. Physical examination: Gen: This is a 59-year-old female appears to be in no acute distress VS: reviewed HEENT: Head is atraumatic, normocephalic. Pupils equal, round. Sclerae is anicteric. NECK: Supple. No JVD. LUNGS: Diminished breath sounds. Bilateral wheeze no intercostal retractions. HEART: Regular rate and rhythm. No murmur. ABDOMEN: Soft No tenderness. EXTREMITIES: Bilateral lower extremity edema. No calf tenderness. NEUROLOGICAL: Patient is awake, alert and oriented x3. Assessment: Acute on chronic systolic heart failure Ischemic cardiomyopathy Coronary artery disease status post CABG Recent COVID-19 2 weeks ago Hypertension CVA Diabetes mellitus type 2 End-stage renal disease on hemodialysis Remote history of tobacco use and dependence COPD Plan: Continue current cardiac medications: Atorvastatin 40 mg at bedtime, Plavix 75 mg daily, hydralazine 25 mg 3 times daily Continue metoprolol succinate 25 mg daily Continue patient on torsemide 40 mg daily per nephrology Plan to continue medication adjustments to maximize treatment for cardiomyopathy Monitor INDIO, daily weights, electrolytes and renal function Obtain records from [facility] Further recommendations to follow based upon clinical course Nurse practitioner note has been reviewed, I agree with documented findings and plan of care. Patient was seen and examined. Objective - Vital Signs Vital signs: Vital Signs Temp 97.6 F 07/03/24 11:37 Pulse 82 07/03/24 11:37 Resp 16 07/03/24 11:37 BP 126/78 07/03/24 11:37 Pulse Ox 97 07/03/24 11:37 FiO2 Intake & Output 07/02/24 07/03/24 07/03/24 18:59 06:59 18:59 Intake Total 500 540 118 Output Total 0 200 Balance 500 340 118 Weight 77 kg Intake: IV 20 Invasive Line 3 20 Oral 480 540 118 Output: Urine 0 200 Other: Voiding Method Bedside Commode Bedside Commode Bedside Commode - Labs CBC & Chem 7: 07/02/24 07:17 07/03/24 08:30 Labs: Abnormal Lab Results - Last 24 Hours (Table) 07/02/24 07/02/24 07/02/24 Range/Units 16:51 20:11 21:06 Sodium (137-145) mmol/L BUN (7-17) mg/dL Creatinine (0.52-1.04) mg/dL Glucose (74-99) mg/dL POC Glucose (mg/dL) 240 H 50 L 124 H (70-110) mg/dL Calcium (8.4-10.2) mg/dL 07/03/24 07/03/24 07/03/24 Range/Units 06:00 08:30 11:23 Sodium 130 L (137-145) mmol/L BUN 25 H (7-17) mg/dL Creatinine 1.90 H (0.52-1.04) mg/dL Glucose 217 H (74-99) mg/dL POC Glucose (mg/dL) 319 H 311 H (70-110) mg/dL Calcium 7.8 L (8.4-10.2) mg/dL Microbiology - Last 24 Hours (Table) 07/01/24 13:01 Blood Culture - Preliminary Blood
--- NOTE | 2024-07-03 14:31 | P.PN ---
Subjective Progress Note Date: 07/03/24 59-year-old F with PMH of ESRD on HD followed by Dr. Davies, systolic CHF EF 15- 20%, COPD, DM, and multiple other comorbid conditions who presented with shortness of breath since open heart surgery in February. She then had COVID several weeks ago. She reports recent hospitalizations at [facility] and [facility] and states she had an echo which showed EF of approximately 25%. In the ER she underwent extensive evaluation. BP 137/83, HR 86, T 97.6F, RR 18, 96% on 2L. CBC, Coag panel, CMP significant for RBC 3.24, Hg 9.9, Hct 30.6, Na 130, K 5.7, BUN 29, Cr 1.78, glu 238, Ca 7.4, AST 37, alk phos 132, alb 2.7. Lactic acid 1.7. Mag 1.6. CXR showed signs of pulmonary edema. She was started on Lasix with Cardiology and Nephrology on consultation. Cardiology consulted, Lasix 80 mg IV BID. Nephrology consulted to resume HD. Echo from [facility] showed EF 30-35%, global hypokinesis, mild-mod AR, severe MR/TR, mild HI, trace pericardiac effusion. Empirically started on Rocephin/Azithromycin for concerns of superimposed PNA, Pulmonary consulted. 07/03 Patient was seen and examined. Breathing better. Plans for HD today and tomorrow. HD removed net 3000 cc. Weight 79-77kg. BMP significant for Na 130, BUN 25, Cr 1.9, glu 217, Ca 7.8. Mag 1.9. General: non toxic, no distress, appears at stated age Derm: warm, dry Head: atraumatic, normocephalic, symmetric Eyes: EOMI, no lid lag, anicteric sclera Mouth: no lip lesion, mucus membranes moist Cardiovascular: S1S2 reg, systolic + diastolic murmur Lungs: CTA bilateral, no rhonchi, no rales , no accessory muscle use Abdominal: soft, nontender to palpation, no guarding, no appreciable organomegaly Ext: no gross muscle atrophy, 2+ LE edema, no contractures Neuro: no focal neuro deficits Psych: Alert, oriented, appropriate affect Based on my assessment of this patient, this patient meets a high complexity level of care. Exacerbation of systolic CHF: Echo EF 30-35%. Metoprolol 25 mg PO BID. Torsemide 40 mg PO QD. Nephrology for HD. 2L fluid restriction. Monitor renal function and electrolytes. Strict intake and outtake. Daily weights. Cardiology on board. ESRD: Nephrology consulted to resume HD on MWF schedule. Normocytic anemia appears at baseline likely AOCD from ESRD Hyponatremia: Likely hypervolemic. Hopeful improvement with Lasix and ESRD. DM with Hyperglycemia: POC glucose 50-319 over the past 24H. ISS. Novolog 2 units TID. Levemir 25 mg PO QHS. Dyslipidemia: Lipitor 40 mg PO QHS. Coronary artery disease s/p CABG: Plavix 75 mg PO QD. COPD without exacerbation: DuoNeb scheduled and PRN for SOB/wheezing. Symbicort 2 INH BID. LLE wound likely due to volume overload does not appear to be infected. Hypertension: Metoprolol as above. Hydralazine 25 mg PO TID. Hypothyroidism: Synthroid 176 mcg PO QD. Resolved: HyperK, HypoMag Patient appears debilitated but adamantly refuses SNF, prefers to go home. Co nsult PT and OT while here. CODE STATUS: FULL CODE. DVT Prophylaxis: Heparin SQ. GI Prophylaxis: Protonix PO Designated medical POA if patient is not able to make medical decisions for themselves: I have reviewed the following inside sales consultant notes: Nephrology, Cardiology note I have reviewed the results of the following tests: [facility] I have ordered the following tests: I have discussed the care of this patient with the following independent historian: ROSITA. I have independently interpreted the following test below: I have discussed the management of this patient with the following physician: Objective - Vital Signs Vital signs: Vital Signs Temp 97.6 F 07/03/24 11:37 Pulse 82 07/03/24 13:32 Resp 16 07/03/24 11:37 BP 126/78 07/03/24 11:37 Pulse Ox 97 07/03/24 11:37 FiO2 Intake & Output 07/02/24 07/03/24 07/03/24 18:59 06:59 18:59 Intake Total 500 540 118 Output Total 0 200 Balance 500 340 118 Weight 77 kg Intake: IV 20 Invasive Line 3 20 Oral 480 540 118 Output: Urine 0 200 Other: Voiding Method Bedside Commode Bedside Commode Bedside Commode - Labs CBC & Chem 7: 07/02/24 07:17 07/03/24 08:30 Labs: Abnormal Lab Results - Last 24 Hours (Table) 07/02/24 07/02/24 07/02/24 Range/Units 16:51 20:11 21:06 Sodium (137-145) mmol/L BUN (7-17) mg/dL Creatinine (0.52-1.04) mg/dL Glucose (74-99) mg/dL POC Glucose (mg/dL) 240 H 50 L 124 H (70-110) mg/dL Calcium (8.4-10.2) mg/dL 07/03/24 07/03/24 07/03/24 Range/Units 06:00 08:30 11:23 Sodium 130 L (137-145) mmol/L BUN 25 H (7-17) mg/dL Creatinine 1.90 H (0.52-1.04) mg/dL Glucose 217 H (74-99) mg/dL POC Glucose (mg/dL) 319 H 311 H (70-110) mg/dL Calcium 7.8 L (8.4-10.2) mg/dL Microbiology - Last 24 Hours (Table) 07/01/24 13:01 Blood Culture - Preliminary Blood
--- NOTE | 2024-07-03 15:21 | P.PN ---
Subjective Progress Note Date: 07/03/24 This is a 59-year-old female patient who had a prolonged, complicated postoperative course following a cardiac surgery which involved four-vessel bypass surgery. Noted the patient is known to have coronary artery disease, ischemic cardiomyopathy with impaired LV function, chronic stage IV kidney disease that evolved into end-stage renal disease following her surgery and the patient is currently on hemodialysis. She is also known to have COPD, type 1 diabetes, hypertension hyperlipidemia and hypothyroidism and fibromyalgia. She is a former smoker. Noted following her discharge, the patient was hospitalized initially at [facility] and following that at [facility] where she was found to have pleural effusion and the patient underwent a thoracentesis on the right where more than 1 L of pleural fluid was aspirated. The exact fluid characteristics and chemistry is not known at this point. The patient was discharged home to be readmitted to the hospital after she missed 2 sessions of hemodialysis. Apparently, the patient was diagnosed having COVID-19 and she was feeling ill and she was unable to show up on her dialysis sessions. As such, she developed increased edema lower extremities bilaterally and worsening shortness of breath. Currently she is on IV Lasix. She is also going to undergo hemodialysis session today. She has a permacath over the right chest area. She is receiving Lasix 80 mg IV every 12 hours. Urine output is not that abundant. Meanwhile, the white cell count is 4.6 with a hemoglobin of 9.9 and platelet count of 160. Normal coagulation profile, BUN 37 with a creatinine of 2.1 and a sodium levels at 128 with a potassium level of 5.2. Glucose is at 340 this morning. proBNP level is 26,300 and the rest of the LFTs are essentially within normal limits. Initial lactic acid level is at 1.4. Chest x-ray was also reviewed and the patient was found to have bibasilar pulmonary filtrates and small pleural effusion worse on the left compared to the right. Nephrology on the case. The patient was started on empiric antibiotic coverage with IV Rocephin and Zithromax although there is no clear indication for an underlying pneumonia. Rest of the home medications have been resumed. She is on Levemir insulin 25 units daily along with NovoLog 2 units with meals and sliding scale coverage. She is on DuoNeb nebulized treatments [id number]. This point in time, the patient's breathing is nonlabored and the patient's pulse ox 98% on 2 L of oxygen by nasal cannula. On 07/02/2024, I am seeing the patient for a follow-up. The patient is stable for now and she does not have any significant respiratory distress patient underwent hemodialysis yesterday with a total of 2.5 L of ultrafiltration and the second session of hemodialysis being done this morning. The patient has no chest pain. No fever. No chills. No hemodynamic instability. She remains on oxygen 2 L/min nasal cannula. The white cell count from today is 4.9 with a hemoglobin 9.9. BUN 23 with a creatinine of 1.6 and a sodium levels at 130. The patient remains on DuoNeb nebulized treatments [id number]. The patient on Symbicort. The patient is currently on torsemide 40 mg p.o. daily and IV Lasix has been discontinued. She remains on Levemir insulin 25 units daily and NovoLog 2 units with meal and sliding scale coverage. Nephrology on the case. The chest x-ray was noted and there is no need for thoracentesis the patient's pleural effusions are essentially small and the patient will respond to hemodialysis and ultrafiltration. On 07/03/2024, the patient is being seen for a follow-up. The patient underwent 2 sessions of hemodialysis [id number]. The patient was again seen by nephrology today. No plans for dialysis today. She is going to undergo another session of hemodialysis tomorrow with ultrafiltration. She is currently on torsemide. No significant respiratory distress. Hemodynamically stable. She is afebrile. Pulse ox 97% 2 L of oxygen by nasal cannula. Denies having any chest pain. No other new complaints otherwise for now. Sodium is at 130, BUN 25 with a creatinine of 1.9. Potassium levels of 4.4. She is afebrile. No nausea. No emesis. No chest pain. No other complaints otherwise. Objective - Vital Signs Vital signs: Vital Signs Temp 97.5 F L 07/03/24 03:11 Pulse 86 07/03/24 09:27 Resp 16 07/03/24 03:11 BP 119/73 07/03/24 03:11 Pulse Ox 94 L 07/03/24 09:20 FiO2 Intake & Output 07/02/24 07/03/24 07/03/24 18:59 06:59 18:59 Intake Total 500 540 118 Output Total 0 200 Balance 500 340 118 Weight 77 kg Intake: IV 20 Invasive Line 3 20 Oral 480 540 118 Output: Urine 0 200 Other: Voiding Method Bedside Commode Bedside Commode Bedside Commode - Exam General Appearance the patient is coming For Liters of Oxygen by Nasal Cannula. Her Breathing Is Nonlabored and the Patient Is Not Using Accessory Muscles of Breathing. Head exam was generally normal. There was no scleral icterus or corneal arcus. Mucous membranes were moist. Neck was supple and without jugular venous distension, thyromegaly, or carotid bruits. Carotids were easily palpable bilaterally. There was no adenopathy. The patient is a permacath over the right anterior chest area. Lung sounds diminished bilaterally along with bibasilar crackles. Thoracotomy scar is dry clean and intact. Cardiac exam revealed the PMI to be normally situated and sized. The rhythm was regular and no extrasystoles were noted during several minutes of auscultation. The first and second heart sounds were normal and physiologic splitting of the second heart sound was noted. There were no murmurs, rubs, clicks, or gallops. Abdominal exam revealed normal bowel sounds. The abdomen was soft, non-tender, and without masses, organomegaly, or appreciable enlargement of the abdominal aorta. Extremities reveal +1 pitting edema there is no signs of clubbing Neurologically, the patient is awake and alert and the patient does not have any focal neurological deficit. Cranial nerves are essentially intact. There is generalized weakness in all 4 extremities. - Labs CBC & Chem 7: 07/02/24 07:17 07/03/24 08:30 Labs: Abnormal Lab Results - Last 24 Hours (Table) 07/02/24 07/02/24 07/02/24 Range/Units 11:47 16:51 20:11 Sodium (137-145) mmol/L BUN (7-17) mg/dL Creatinine (0.52-1.04) mg/dL Glucose (74-99) mg/dL POC Glucose (mg/dL) 223 H 240 H 50 L (70-110) mg/dL Calcium (8.4-10.2) mg/dL 07/02/24 07/03/24 07/03/24 Range/Units 21:06 06:00 08:30 Sodium 130 L (137-145) mmol/L BUN 25 H (7-17) mg/dL Creatinine 1.90 H (0.52-1.04) mg/dL Glucose 217 H (74-99) mg/dL POC Glucose (mg/dL) 124 H 319 H (70-110) mg/dL Calcium 7.8 L (8.4-10.2) mg/dL Microbiology - Last 24 Hours (Table) 07/01/24 13:01 Blood Culture - Preliminary Blood Assessment and Plan Plan: Acute hypoxic respiratory failure, the patient is, 2 L of Oxygen by Nasal Cannula. The Patient Has Some Limited Infiltration and Small effusion lung base bilaterally. The patient had undergone recent thoracentesis of the right lung and this was done at [facility] and the fluid analysis not available at. She does have obvious signs of fluid overload along with CHF. The patient is undergoing hemodialysis. The patient has already undergone 2 sessions of hemodialysis. Another session is to be done tomorrow. Nephrology on the case. Overall respiratory status is stable. Oxygenation stable and the patient remains on 2 L of oxygen by nasal cannula. Acute on chronic shortness of breath, likely secondary to above. Predominantly related to fluid overload and CHF. Clinically improving as the patient is undergoing hemodialysis and she has already undergone 2 sessions. Bilateral effusion, status post right-sided thoracentesis that was done at [facility] approximately 3 weeks ago COVID 19 infection 3 weeks ago Multivessel coronary artery disease and the patient is status post acute non-ST elevation OK, the patient underwent four-vessel bypass surgery off-pump which included sequential RUSSO to To the LAD and diagonal and SVG to PDA and second obtuse marginal branch Ischemic cardiomyopathy with an estimated left ventricular ejection fraction severely impaired at 20 to 25% as well as moderate to severe mitral valve regurgitation Normocytic normochromic anemia, stable hemoglobin ERSRD on HD and the patient is undergoing hemodialysis 3 times a week Chronic obstructive pulmonary disease, stable Diabetes mellitus type 1 History of hyperlipidemia History of hypertension History of CVA/TIA History of hypothyroidism History of fibromyalgia History of GERD Former tobacco smoker as of 55 days ago, before this 1/2 pack/day or approximately 15-year pack history' Previous history of methamphetamine use Plan Will undergo hemodialysis tomorrow Continue torsemide 40 mg p.o. daily. Currently on 2 L of oxygen by nasal cannula The pleural fluid seen on the chest x-ray is small and not amenable for thoracentesis and will be useful to obtain records from [facility] in regards to the chemistry and evaluation that was done on the pleural fluid on the right Chronic debility with multiple comorbidities Nephrology is on the case Electrolytes are stable Will follow
[2024-07-03 16:46] LABS: Glucose,Whole Blood 159 mg/dL (70-110)
[2024-07-03] MEDS: METOPROLOL SUCCINATE (ER) 25 MG TAB.ER.24H PO SCH (16:59)
[2024-07-03] MEDS: TORSEMIDE 20 MG TAB PO SCH (16:59)
[2024-07-03 20:47] LABS: Glucose,Whole Blood 247 mg/dL (70-110)
[2024-07-04 06:02] LABS: Glucose,Whole Blood 80 mg/dL (70-110)
--- NOTE | 2024-07-04 10:42 | P.PN ---
Subjective Patient is seen in follow-up for acute kidney injury, hemodialysis dependent. Receiving another extra treatment of dialysis today. Hemodynamically stable. Does make urine but not a significant amount. No active complaints. Vital signs are stable. General: No acute distress. HEENT: Head exam is unremarkable. LUNGS: No audible rhonchi or wheezes. HEART: Rate and Rhythm are regular. ABDOMEN: Nontender. EXTREMITITES: 2+ edema. Objective - Vital Signs Vital signs: Vital Signs Temp 97.8 F 07/04/24 08:04 Pulse 74 07/04/24 08:31 Resp 16 07/04/24 08:04 BP 113/72 07/04/24 08:04 Pulse Ox 99 07/04/24 08:04 FiO2 Intake & Output 07/03/24 07/04/24 07/04/24 18:59 06:59 18:59 Intake Total 618 240 128 Output Total 6500 Balance -5882 240 128 Weight 76.7 kg Intake: IV 10 Invasive Line 3 10 Oral 118 240 118 Hemodialysis 500 Output: Hemodialysis 3500 Hemodialysis Net Amount 3000 Other: Voiding Method Bedside Commode Bedside Commode Bedside Commode # Voids 1 - Labs CBC & Chem 7: 07/02/24 07:17 07/03/24 08:30 Labs: Abnormal Lab Results - Last 24 Hours (Table) 07/03/24 07/03/24 07/03/24 Range/Units 11:23 16:44 20:46 POC Glucose (mg/dL) 311 H 159 H 247 H (70-110) mg/dL Microbiology - Last 24 Hours (Table) 07/01/24 13:01 Blood Culture - Preliminary Blood Assessment and Plan Plan: Assessment: 1. Acute kidney injury secondary to ATN secondary to cardiorenal syndrome, hemodialysis dependent. Maintained on hemodialysis on Monday schedule via permacath. 2. Volume overload. Improving with ultrafiltration. 3. Recent COVID-19 infection. Concern for superimposed bacterial pneumonia. On antibiotics. 4. Coronary disease status post CABG. 5. Diabetes mellitus. 6. Hypertension with chronic kidney disease. Stable. 7. Hyperkalemia secondary to chronic kidney disease. That was a hemolyzed sample. Status post Lokelma. Resolved. 8. Anemia of chronic kidney disease. Rule out iron deficiency. 9. Hypervolemic hyponatremia. Better postdialysis. 10. Acute on chronic systolic CHF with severe mitral and tricuspid regurgitation. Plan: Currently seen while undergoing hemodialysis. Receiving an extra treatment mostly for ultrafiltration. Another treatment tomorrow per her outpatient schedule. Maintain torsemide. Follow-up iron studies. Monitor for renal recovery outpatient.
[2024-07-04 11:28] LABS: Glucose,Whole Blood 101 mg/dL (70-110)
--- NOTE | 2024-07-04 11:58 | P.PN ---
Subjective Progress Note Date: 07/04/24 Reason for Consult (text): Heart failure History of present illness: This is 59-year-old patient of Dr. Saunders with past medical history of coronary artery disease, CVA, hypertension, hypothyroidism, diabetes mellitus type 2, end-stage renal disease on dialysis, remote history of tobacco use and dependence, COPD. We have been asked to evaluate the patient for heart failure. Patient was recently hospitalized in January through March 2024 for non-ST elevated myocardial infarction and heart failure with reduced EF, and underwent CABG x 4 on 02/25 with sequential left internal mammary artery to left anterior descending coronary artery and diagonal coronary artery, reverse saphenous vein graft to the posterior descending coronary artery and second obtuse marginal coronary artery, closure of the left atrial appendage. During that hospitalization, patient was started on hemodialysis and she also had a postop episode of paroxysmal atrial fibrillation. We have been asked to evaluate the patient for heart failure. Patient developed shortness of breath couple weeks ago that had worsened over the past few days. She was positive for COVID-19 2 weeks ago. Positive cough with clear sputum production. She has missed dialysis treatments since she has been ill. She states she was at [facility] had an echocardiogram done there recently and was also at [facility] had the right side of her lungs drained. Patient states that she was just discharged from [facility] on Monday. She states she has always nauseated. No blood in her stools or urine. She denies any use of caffeine or alcohol. Blood pressure 127/68, heart rate 75, pulse ox 97% on 2 L nasal cannula. Patient received 1 dose of IV steroids, Nitro-Bid and started on IV Lasix 80 mg every 12 hours. EKG: Sinus rhythm with IVCD Chest x-ray: Worsening bibasilar infiltrates and small left pleural effusion. Laboratory studies: WBC 4.6, hemoglobin 9.9. Sodium 130, potassium 5.7, BUN 29, creatinine 1.78. Glucose 238. proBNP 26,300. Troponin 0.016. Alkaline p hosphatase 132, AST 37. Home cardiac medications: Aspirin 81 mg daily, Lipitor 40 mg at bedtime, Plavix 75 mg daily, hydralazine 12.5 mg 3 times daily, magnesium oxide 400 mg daily, Lopressor 12.5 mg twice daily, Demadex 50 mg twice daily, patient also on levothyroxine 175 mcg daily. [place] performed on 02/06/2024 revealed: Mild mitral regurgitation, mild tricuspid regurgitation, no PFO, left atrial appendage free of clot, EF 35% with global hypokinesis. Cardiac catheterization performed 02/06/2024 revealed calcified coronary arteries, severe triple-vessel disease, right dominance, mildly elevated LVEDP. Echocardiogram performed on 03/05/2024 revealed EF of 15 to 20% severely reduced global left ventricular systolic function, a typical septal motion with intraventricular dyssynchrony. No obvious evidence of LV thrombus. No pericardial effusion. Echocardiogram performed on 06/18/2024 at [facility] revealed EF of 30%. Severe mitral and tricuspid regurgitation. Mild to moderate aortic insufficiency. No significant pericardial effusion. 07/02 Patient is seen today in follow-up. She is receiving hemodialysis today. No complaints of chest pain, shortness of breath is stable. Blood pressure 144/87, heart rate 85, pulse ox 96% on 3 L nasal cannula. Repeat blood work reveals WBC 4.9, hemoglobin 9.9. BUN 23 creatinine 1.63. IV Lasix has been discontinued by nephrology and patient started on oral torsemide. Information from [facility] has not been obtained. 07/03 Patient states that she is feeling better today. Breathing is improved. She is undergoing HD today and tomorrow. Lower extremity edema is improved. She denies having chest pain, no dizziness. Blood pressure 119/73, heart rate 82, pulse ox 97% on 2 L nasal cannula. Repeat blood work reveals sodium 130, potassium 4.4, BUN 25 and creatinine 1.9. Documentation from [facility] has not been obtained. 07/04 Patient is seen today in follow-up. Blood pressure is better today. She is feeling improved as well. She has less lower extremity edema today. She slept okay. No chest pain and no shortness of breath. Patient states that she will be discharged home tomorrow following dialysis treatment. Blood pressure 125/70, heart rate in the 70s, pulse ox 97% on 2 L nasal cannula. Telemetry sinus rhythm. Physical examination: Gen: This is a 59-year-old female appears to be in no acute distress VS: reviewed HEENT: Head is atraumatic, normocephalic. Pupils equal, round. Sclerae is anicte mona. NECK: Supple. No JVD. LUNGS: Diminished breath sounds. Bilateral wheeze no intercostal retractions. HEART: Regular rate and rhythm. No murmur. ABDOMEN: Soft No tenderness. EXTREMITIES: Bilateral lower extremity edema. No calf tenderness. NEUROLOGICAL: Patient is awake, alert and oriented x3. Assessment: Acute on chronic systolic heart failure Ischemic cardiomyopathy Coronary artery disease status post CABG Recent COVID-19 2 weeks ago Hypertension CVA Diabetes mellitus type 2 End-stage renal disease on hemodialysis Remote history of tobacco use and dependence COPD Plan: Continue current cardiac medications: Atorvastatin 40 mg at bedtime, Plavix 75 mg daily, hydralazine 25 mg 3 times daily Continue metoprolol succinate 25 mg daily Continue patient on torsemide 40 mg daily per nephrology Plan to continue medication adjustments to maximize treatment for cardiomyopathy Monitor INDIO, daily weights, electrolytes and renal function Further recommendations to follow based upon clinical course Nurse practitioner note has been reviewed, I agree with documented findings and plan of care. Patient was seen and examined. Objective - Vital Signs Vital signs: Vital Signs Temp 97.8 F 07/04/24 08:04 Pulse 74 07/04/24 08:31 Resp 16 07/04/24 08:04 BP 113/72 07/04/24 08:04 Pulse Ox 99 07/04/24 08:04 FiO2 Intake & Output 07/03/24 07/04/24 07/04/24 18:59 06:59 18:59 Intake Total 618 240 128 Output Total 6500 Balance -5882 240 128 Weight 76.7 kg Intake: IV 10 Invasive Line 3 10 Oral 118 240 118 Hemodialysis 500 Output: Hemodialysis 3500 Hemodialysis Net Amount 3000 Other: Voiding Method Bedside Commode Bedside Commode Bedside Commode # Voids 1 - Labs CBC & Chem 7: 07/02/24 07:17 07/03/24 08:30 Labs: Abnormal Lab Results - Last 24 Hours (Table) 07/03/24 07/03/24 07/03/24 Range/Units 11:23 16:44 20:46 POC Glucose (mg/dL) 311 H 159 H 247 H (70-110) mg/dL Microbiology - Last 24 Hours (Table) 07/01/24 13:01 Blood Culture - Preliminary Blood
--- NOTE | 2024-07-04 12:41 | P.PN ---
Subjective Progress Note Date: 07/04/24 59-year-old F with PMH of ESRD on HD followed by Dr. Davies, systolic CHF EF 15- 20%, COPD, DM, and multiple other comorbid conditions who presented with shortness of breath since open heart surgery in February. She then had COVID several weeks ago. She reports recent hospitalizations at [facility] and [facility] and states she had an echo which showed EF of approximately 25%. In the ER she underwent extensive evaluation. BP 137/83, HR 86, T 97.6F, RR 18, 96% on 2L. CBC, Coag panel, CMP significant for RBC 3.24, Hg 9.9, Hct 30.6, Na 130, K 5.7, BUN 29, Cr 1.78, glu 238, Ca 7.4, AST 37, alk phos 132, alb 2.7. Lactic acid 1.7. Mag 1.6. CXR showed signs of pulmonary edema. She was started on Lasix with Cardiology and Nephrology on consultation. Cardiology consulted, Lasix 80 mg IV BID. Nephrology consulted to resume HD. Echo from [facility] showed EF 30-35%, global hypokinesis, mild-mod AR, severe MR/TR, mild NE, trace pericardiac effusion. Empirically started on Rocephin/Azithromycin for concerns of superimposed PNA, Pulmonary consulted. 07/04 Patient was seen and examined. Breathing improving slowly. Plans for HD today and tomorrow. HD removed net 3500 cc. Weight 79-76.7kg. Patient appears debilitated but adamantly refuses SNF, prefers to go home. Discussed with SILAS Carrillo for discharge today or tomorrow. Patient would prefer to go home after HD tomorrow. General: non toxic, no distress, appears at stated age Derm: warm, dry Head: atraumatic, normocephalic, symmetric Eyes: EOMI, no lid lag, anicteric sclera Mouth: no lip lesion, mucus membranes moist Cardiovascular: S1S2 reg, systolic + diastolic murmur Lungs: CTA bilateral, no rhonchi, no rales , no accessory muscle use Abdominal: soft, nontender to palpation, no guarding, no appreciable organomegaly Ext: no gross muscle atrophy, 2+ LE edema, no contractures Neuro: no focal neuro deficits Psych: Alert, oriented, appropriate affect Based on my assessment of this patient, this patient meets a high complexity level of care. Exacerbation of systolic CHF: Echo EF 30-35%. Metoprolol 25 mg PO BID. Torsemide 40 mg PO QD. Nephrology for HD. 2L fluid restriction. Monitor renal function and electrolytes. Strict intake and outtake. Daily weights. Cardiology on board. ESRD: Nephrology consulted to resume HD. Normocytic anemia appears at baseline likely AOCD from ESRD Hyponatremia: Likely hypervolemic. Hopeful improvement with Lasix and ESRD. DM with Hyperglycemia: POC glucose 80-319 over the past 24H. ISS. Novolog 2 units TID. Levemir 25 mg PO QHS. Dyslipidemia: Lipitor 40 mg PO QHS. Coronary artery disease s/p CABG: Plavix 75 mg PO QD. COPD without exacerbation: DuoNeb scheduled and PRN for SOB/wheezing. Symbicort 2 INH BID. LLE wound likely due to volume overload does not appear to be infected. Hypertension: Metoprolol as above. Hydralazine 25 mg PO TID. Hypothyroidism: Synthroid 176 mcg PO QD. Resolved: HyperK, HypoMag Patient appears debilitated but adamantly refuses SNF, prefers to go home. Consult PT and OT while here. CODE STATUS: FULL CODE. DVT Prophylaxis: Heparin SQ. GI Prophylaxis: Protonix PO Designated medical POA if patient is not able to make medical decisions for themselves: I have reviewed the following oracle ebs consultant notes: Nephrology, Cardiology note I have reviewed the results of the following tests: I have ordered the following tests: I have discussed the care of this patient with the following independent historian: ROSITA. I have independently interpreted the following test below: I have discussed the management of this patient with the following physician: Dr. Davies. Objective - Vital Signs Vital signs: Vital Signs Temp 98.0 F 07/04/24 03:55 Pulse 74 07/04/24 08:31 Resp 18 07/04/24 03:55 BP 114/69 07/04/24 03:55 Pulse Ox 96 07/04/24 03:55 FiO2 Intake & Output 07/03/24 07/04/24 07/04/24 18:59 06:59 18:59 Intake Total 618 240 118 Output Total 6500 Balance -5882 240 118 Weight 76.7 kg Intake: Oral 118 240 118 Hemodialysis 500 Output: Hemodialysis 3500 Hemodialysis Net Amount 3000 Other: Voiding Method Bedside Commode Bedside Commode # Voids 1 - Labs CBC & Chem 7: 07/02/24 07:17 07/03/24 08:30 Labs: Abnormal Lab Results - Last 24 Hours (Table) 07/03/24 07/03/24 07/03/24 Range/Units 08:30 11:23 16:44 Sodium 130 L (137-145) mmol/L BUN 25 H (7-17) mg/dL Creatinine 1.90 H (0.52-1.04) mg/dL Glucose 217 H (74-99) mg/dL POC Glucose (mg/dL) 311 H 159 H (70-110) mg/dL Calcium 7.8 L (8.4-10.2) mg/dL 07/03/24 Range/Units 20:46 Sodium (137-145) mmol/L BUN (7-17) mg/dL Creatinine (0.52-1.04) mg/dL Glucose (74-99) mg/dL POC Glucose (mg/dL) 247 H (70-110) mg/dL Calcium (8.4-10.2) mg/dL Microbiology - Last 24 Hours (Table) 07/01/24 13:01 Blood Culture - Preliminary Blood
[2024-07-04 16:43] LABS: Glucose,Whole Blood 248 mg/dL (70-110)
--- NOTE | 2024-07-04 19:02 | P.PN ---
Subjective Progress Note Date: 07/04/24 This is a 59-year-old female patient who had a prolonged, complicated postoperative course following a cardiac surgery which involved four-vessel bypass surgery. Noted the patient is known to have coronary artery disease, ischemic cardiomyopathy with impaired LV function, chronic stage IV kidney disease that evolved into end-stage renal disease following her surgery and the patient is currently on hemodialysis. She is also known to have COPD, type 1 diabetes, hypertension hyperlipidemia and hypothyroidism and fibromyalgia. She is a former smoker. Noted following her discharge, the patient was hospitalized initially at [facility] and following that at [facility] where she was found to have pleural effusion and the patient underwent a thoracentesis on the right where more than 1 L of pleural fluid was aspirated. The exact fluid characteristics and chemistry is not known at this point. The patient was discharged home to be readmitted to the hospital after she missed 2 sessions of hemodialysis. Apparently, the patient was diagnosed having COVID-19 and she was feeling ill and she was unable to show up on her dialysis sessions. As such, she developed increased edema lower extremities bilaterally and worsening shortness of breath. Currently she is on IV Lasix. She is also going to undergo hemodialysis session today. She has a permacath over the right chest area. She is receiving Lasix 80 mg IV every 12 hours. Urine output is not that abundant. Meanwhile, the white cell count is 4.6 with a hemoglobin of 9.9 and platelet count of 160. Normal coagulation profile, BUN 37 with a creatinine of 2.1 and a sodium levels at 128 with a potassium level of 5.2. Glucose is at 340 this morning. proBNP level is 26,300 and the rest of the LFTs are essentially within normal limits. Initial lactic acid level is at 1.4. Chest x-ray was also reviewed and the patient was found to have bibasilar pulmonary filtrates and small pleural effusion worse on the left compared to the right. Nephrology on the case. The patient was started on empiric antibiotic coverage with IV Rocephin and Zithromax although there is no clear indication for an underlying pneumonia. Rest of the home medications have been resumed. She is on Levemir insulin 25 units daily along with NovoLog 2 units with meals and sliding scale coverage. She is on DuoNeb nebulized treatments [id number]. This point in time, the patient's breathing is nonlabored and the patient's pulse ox 98% on 2 L of oxygen by nasal cannula. On 07/02/2024, I am seeing the patient for a follow-up. The patient is stable for now and she does not have any significant respiratory distress patient underwent hemodialysis yesterday with a total of 2.5 L of ultrafiltration and the second session of hemodialysis being done this morning. The patient has no chest pain. No fever. No chills. No hemodynamic instability. She remains on oxygen 2 L/min nasal cannula. The white cell count from today is 4.9 with a hemoglobin 9.9. BUN 23 with a creatinine of 1.6 and a sodium levels at 130. The patient remains on DuoNeb nebulized treatments [id number]. The patient on Symbicort. The patient is currently on torsemide 40 mg p.o. daily and IV Lasix has been discontinued. She remains on Levemir insulin 25 units daily and NovoLog 2 units with meal and sliding scale coverage. Nephrology on the case. The chest x-ray was noted and there is no need for thoracentesis the patient's pleural effusions are essentially small and the patient will respond to hemodialysis and ultrafiltration. On 07/03/2024, the patient is being seen for a follow-up. The patient underwent 2 sessions of hemodialysis [id number]. The patient was again seen by nephrology today. No plans for dialysis today. She is going to undergo another session of hemodialysis tomorrow with ultrafiltration. She is currently on torsemide. No significant respiratory distress. Hemodynamically stable. She is afebrile. Pulse ox 97% 2 L of oxygen by nasal cannula. Denies having any chest pain. No other new complaints otherwise for now. Sodium is at 130, BUN 25 with a creatinine of 1.9. Potassium levels of 4.4. She is afebrile. No nausea. No emesis. No chest pain. No other complaints otherwise. 07/04/2024, patient is being seen for a follow-up. Doing well. Undergoing another session of hemodialysis today. The goal of ultrafiltration is 3 L for today. She has no specific complaints. She is on 2 L of oxygen by nasal cannula with a pulse ox of 94%. No respiratory distress. No cough or sputum p roduction. Surgical wound site is dry clean and intact. The patient has no new labs from today. Otherwise, the medications are essentially unchanged. She is on torsemide 40 mg p.o. Patient on Levemir insulin 25 units daily along with units of NovoLog with meals. She is on DuoNeb nebulized treatments [id number]. She remains on aspirin and Plavix. She is on metoprolol XL 25 mg p.o. daily. Ambulating. No fever. No chills. No other significant events overnight. Objective - Vital Signs Vital signs: Vital Signs Temp 97.8 F 07/04/24 08:04 Pulse 74 07/04/24 08:31 Resp 16 07/04/24 08:04 BP 113/72 07/04/24 08:04 Pulse Ox 99 07/04/24 08:04 FiO2 Intake & Output 07/03/24 07/04/24 07/04/24 18:59 06:59 18:59 Intake Total 618 240 128 Output Total 6500 Balance -5882 240 128 Weight 76.7 kg Intake: IV 10 Invasive Line 3 10 Oral 118 240 118 Hemodialysis 500 Output: Hemodialysis 3500 Hemodialysis Net Amount 3000 Other: Voiding Method Bedside Commode Bedside Commode Bedside Commode # Voids 1 - Exam General Appearance the patient is coming For Liters of Oxygen by Nasal Cannula. Her Breathing Is Nonlabored and the Patient Is Not Using Accessory Muscles of Breathing. Head exam was generally normal. There was no scleral icterus or corneal arcus. Mucous membranes were moist. Neck was supple and without jugular venous distension, thyromegaly, or carotid bruits. Carotids were easily palpable bilaterally. There was no adenopathy. The patient is a permacath over the right anterior chest area. Lung sounds diminished bilaterally along with bibasilar crackles. Thoracotomy scar is dry clean and intact. Cardiac exam revealed the PMI to be normally situated and sized. The rhythm was regular and no extrasystoles were noted during several minutes of auscultation. The first and second heart sounds were normal and physiologic splitting of the second heart sound was noted. There were no murmurs, rubs, clicks, or gallops. Abdominal exam revealed normal bowel sounds. The abdomen was soft, non-tender, and without masses, organomegaly, or appreciable enlargement of the abdominal aorta. Extremities reveal +1 pitting edema there is no signs of clubbing Neurologically, the patient is awake and alert and the patient does not have any focal neurological deficit. Cranial nerves are essentially intact. There is generalized weakness in all 4 extremities. - Labs CBC & Chem 7: 07/02/24 07:17 07/03/24 08:30 Labs: Abnormal Lab Results - Last 24 Hours (Table) 07/03/24 07/03/24 07/03/24 Range/Units 11:23 16:44 20:46 POC Glucose (mg/dL) 311 H 159 H 247 H (70-110) mg/dL Microbiology - Last 24 Hours (Table) 07/01/24 13:01 Blood Culture - Preliminary Blood Assessment and Plan Plan: Acute hypoxic respiratory failure, the patient is, 2 L of Oxygen by Nasal Cannula. The Patient Has Some Limited Infiltration and Small effusion lung base bilaterally. The patient had undergone recent thoracentesis of the right lung and this was done at [facility] and the fluid analysis not available at. She does have obvious signs of fluid overload along with CHF. The patient is undergoing hemodialysis. The patient has already undergone 2 sessions of hemodialysis. Another session is to be done today. Nephrology on the case. Overall respiratory status is stable. Oxygenation stable and the patient remains on 2 L of oxygen by nasal cannula. The patient is undergoing hemodialysis with good clinical response. No significant respiratory distress Acute on chronic shortness of breath, likely secondary to above. Predominantly related to fluid overload and CHF. Clinically improving as the patient is undergoing hemodialysis and she has already undergone 2 sessions. Bilateral effusion, status post right-sided thoracentesis that was done at [facility] approximately 3 weeks ago COVID 19 infection 3 weeks ago Multivessel coronary artery disease and the patient is status post acute non-ST elevation IL, the patient underwent four-vessel bypass surgery off-pump which included sequential RUSSO to To the LAD and diagonal and SVG to PDA and second obtuse marginal branch Ischemic cardiomyopathy with an estimated left ventricular ejection fraction severely impaired at 20 to 25% as well as moderate to severe mitral valve regurgitation Normocytic normochromic anemia, stable hemoglobin ERSRD on HD and the patient is undergoing hemodialysis 3 times a week Chronic obstructive pulmonary disease, stable Diabetes mellitus type 1 History of hyperlipidemia History of hypertension History of CVA/TIA History of hypothyroidism History of fibromyalgia History of GERD Former tobacco smoker as of 55 days ago, before this 1/2 pack/day or approximately 15-year pack history' Previous history of methamphetamine use Plan Patient is undergoing another session of hemodialysis today with a goal of 3 L of ultrafiltration Continue torsemide 40 mg p.o. daily. Currently on 2 L of oxygen by nasal cannula The pleural fluid seen on the chest x-ray is small and not amenable for t horacentesis and will be useful to obtain records from [facility] in regards to the chemistry and evaluation that was done on the pleural fluid on the right Chronic debility with multiple comorbidities Nephrology is on the case Electrolytes are stable Will follow
[2024-07-04 20:57] LABS: Glucose,Whole Blood 144 mg/dL (70-110)
[2024-07-05 06:21] LABS: Glucose,Whole Blood 44 mg/dL (70-110)
[2024-07-05 06:21] LABS: Glucose,Whole Blood 47 mg/dL (70-110)
[2024-07-05 06:36] LABS: Glucose,Whole Blood 59 mg/dL (70-110)
[2024-07-05 06:56] LABS: Glucose,Whole Blood 105 mg/dL (70-110)
[2024-07-05 09:35] VITALS: RESP 16; TEMP 97.6
[2024-07-05 10:05] VITALS: PULSE 72
--- NOTE | 2024-07-05 11:06 | XR ---
EXAMINATION TYPE: XR chest 1V DATE OF EXAM: 07/05/2024 COMPARISON: 06/30/2024 HISTORY: Shortness of breath TECHNIQUE: Single frontal view of the chest is obtained. FINDINGS: Persistent bilateral consolidation and small effusions. There is interval reduction in the degree of interstitial edema. Postoperative changes are seen with median sternotomy. Atrial appendag e clips suggested. There is a suspected loop recorder device overlying the left hemithorax. Dialysis catheter noted. No pneumothorax. Degenerative changes of the spine and osteopenia. IMPRESSION: 1. Stable bilateral consolidation and small effusion. However, there appears to be interval noticeabl e reduction in the degree of vascular congestion. [facility], , 07/05/2024 11:04 AM
[2024-07-05 11:35] LABS: Glucose,Whole Blood 173 mg/dL (70-110)
[2024-07-05 12:47] VITALS: BP 120/72
--- NOTE | 2024-07-05 13:24 | P.PN ---
Subjective Progress Note Date: 07/05/24 Patient is seen in follow-up for acute kidney injury, hemodialysis dependent. Patient seen and examined at bedside. No acute events overnight. Had dialysis session today. Patient reports having a few episodes of urination overnight. Objective - Vital Signs Vital signs: Vital Signs Temp 97.7 F 07/04/24 20:00 Pulse 80 07/04/24 20:50 Resp 19 07/04/24 20:00 BP 107/62 07/04/24 20:00 Pulse Ox 96 07/04/24 20:00 FiO2 Intake & Output 07/04/24 07/05/24 07/05/24 18:59 06:59 18:59 Intake Total 4018 10 Output Total 3400 Balance 618 10 Weight 75 kg Intake: IV 20 10 Invasive Line 3 20 10 Oral 598 Hemodialysis 3400 Output: Urine 0 Hemodialysis 400 Hemodialysis Net Amount 3000 Other: Voiding Method Bedside Commode Bedside Commode # Bowel Movements 0 - Exam Vital signs reviewed General: non toxic, no distress, appears at stated age, normal weight Head: atraumatic, normocephalic, symmetric Mouth: no lip lesion, mucus membranes moist Cardiovascular: S1S2 reg, no murmur Lungs: CTA bilateral, no rhonchi, no rales, no accessory muscle use Abdominal: soft, nontender to palpation, no guarding Ext: muscle strength 5 out of 5 in all 4 extremities grossly, no gross muscle atrophy, no contractures, positive dorsalis pedis pulse bilateral, no edema Neuro: no gross focal neuro deficits Psych: Alert, oriented, appropriate affect and mood - Labs CBC & Chem 7: 07/02/24 07:17 07/03/24 08:30 Labs: Abnormal Lab Results - Last 24 Hours (Table) 07/04/24 07/04/24 07/05/24 Range/Units 16:42 20:56 06:16 POC Glucose (mg/dL) 248 H 144 H 44 L* (70-110) mg/dL 07/05/24 07/05/24 Range/Units 06:17 06:34 POC Glucose (mg/dL) 47 L* 59 L (70-110) mg/dL Microbiology - Last 24 Hours (Table) 07/01/24 13:01 Blood Culture - Preliminary Blood Assessment and Plan Assessment: 1. Acute kidney injury secondary to ATN secondary to cardiorenal syndrome, hemodialysis dependent. Maintained on hemodialysis on Monday schedule via permacath. 2. Volume overload. Improving with ultrafiltration. 3. Recent COVID-19 infection. Concern for superimposed bacterial pneumonia. On antibiotics. 4. Coronary disease status post CABG. 5. Diabetes mellitus. 6. Hypertension with chronic kidney disease. Stable. 7. Hyperkalemia secondary to chronic kidney disease. That was a hemolyzed sample. Status post Lokelma. Resolved. 8. Anemia of chronic kidney disease. Rule out iron deficiency. 9. Hypervolemic hyponatremia. Better postdialysis. 10. Acute on chronic systolic CHF with severe mitral and tricuspid regur gitation. Plan: Had hemodialysis today. Receiving an extra treatment mostly for ultrafiltration. Maintain torsemide 40mg OD. Follow-up iron studies. Monitor for renal recovery outpatient. Continue hemodialysis outpatient. I have seen and examined the patient with resident and agree with A&P as written. Daily HD this week - edema improved. cont torsemide. Advised low salt diet and FR <50 oz/day.
--- NOTE | 2024-07-05 14:03 | P.DS ---
Providers Date of admission: 06/30/24 09:42 Expected date of discharge: 07/05/24 Attending physician: Miley Mawxell DO Consults: 06/30/24 09:42 Consult Physician Routine Consulting Provider: Jt Saunders Consult Reason/Comments: chf Do you want consulting provider notified?: Yes Consult Physician Routine Consulting Provider: Kenia Sevilla Consult Reason/Comments: esrd on hd w edema Do you want consulting provider notified?: Yes 07/01/24 09:23 Consult Physician Routine Consulting Provider: Glenis Guerra Consult Reason/Comments: copd Do you want consulting provider notified?: Yes 07/01/24 10:01 Consult Physician Urgent Consulting Provider: Glenis Guerra Consult Reason/Comments: post Covid, possible pneumonia Do you want consulting provider notified?: Yes [facility] Course: 59-year-old F with PMH of ESRD on HD followed by Dr. Davies, systolic CHF EF 15- 20%, COPD, DM, and multiple other comorbid conditions who presented with shortness of breath since open heart surgery in February. She then had COVID several weeks ago. She reports recent hospitalizations at [facility] and [facility] and states she had an echo which showed EF of approximately 25%. In the ER she underwent extensive evaluation. BP 137/83, HR 86, T 97.6F, RR 18, 96% on 2L. CBC, Coag panel, CMP significant for RBC 3.24, Hg 9.9, Hct 30.6, Na 130, K 5.7, BUN 29, Cr 1.78, glu 238, Ca 7.4, AST 37, alk phos 132, alb 2.7. Lactic acid 1.7. Mag 1.6. CXR showed signs of pulmonary edema. She was started on Lasix with Cardiology and Nephrology on consultation. Cardiology consulted, Lasix 80 mg IV BID. Nephrology consulted to resume HD. Echo from [facility] showed EF 30-35%, global hypokinesis, mild-mod AR, severe MR/TR, mild ND, trace pericardiac effusion. Empirically started on Rocephin/Azithromycin for concerns of superimposed PNA, Pulmonary consulted. She underwent multiple rounds of HD with improvement in her breathing. Initially on Lasix IV transitioned to Torsemide PO. Patient appears debilitated but adamantly refuses SNF, prefers to go home. 07/05 Patient was seen and examined. Underwent HD and feeling better. She did have a hypoglycemic episode this morning which resolved with oral intake. Patient reports she usually takes Levemir 14 units at 11AM and sliding scale. Her blood sugars are usually under control with no hypoglycemia. I advised her of hypoglycemic symptoms and to continue her home insulin regimen. Advised to resume HD on MWF schedule. Prescription for Hydralazine, Torsemide and Metoprolol sent to pharmacy. Follow up with PCP within 1-2 days, Cardiology within 1 week of discharge. Plans for discharge home today. General: non toxic, no distress, appears at stated age Derm: warm, dry Head: atraumatic, normocephalic, symmetric Eyes: EOMI, no lid lag, anicteric sclera Mouth: no lip lesion, mucus membranes moist Cardiovascular: S1S2 reg, systolic + diastolic murmur Lungs: CTA bilateral, no rhonchi, no rales , no accessory muscle use Abdominal: soft, nontender to palpation, no guarding, no appreciable organomegaly Ext: no gross muscle atrophy, 1+ LE edema, no contractures Neuro: no focal neuro deficits Psych: Alert, oriented, appropriate affect Discharge Diagnosis: Exacerbation of systolic CHF: Echo EF 30-35%. Metoprolol 25 mg PO BID. Torsemide 40 mg PO QD. 2L fluid restriction. ESRD on HD MWF Normocytic anemia appears at baseline likely AOCD from ESRD Hyponatremia: Likely hypervolemic. Hopeful improvement with Lasix and ESRD. DM with Hypoglycemia: Resume home dose of Levemir 14 units at 11AM and ISS. Dyslipidemia: Lipitor 40 mg PO QHS. Coronary artery disease s/p CABG: Plavix 75 mg PO QD. COPD without exacerbation: DuoNeb scheduled and PRN for SOB/wheezing. Symbicort 2 INH BID. LLE wound likely due to volume overload does not appear to be infected. Hypertension: Metoprolol as above. Hydralazine 25 mg PO TID. Hypothyroidism: Synthroid 176 mcg PO QD. Resolved: HyperK, HypoMag This complex discharge took 35 minutes to complete. Patient Condition at Discharge: Stable Plan - Discharge Summary Discharge Rx Participant: No New Discharge Prescriptions: New hydrALAZINE HCL [Apresoline] 25 mg PO TID #90 tab Torsemide [Demadex] 40 mg PO DAILY #30 tab Metoprolol Succinate (ER) [Toprol XL] 25 mg PO DAILY #30 tab Continue Ondansetron [Zofran] 4 mg PO Q8H PRN PRN Reason: Nausea And Vomiting traZODone HCL [Desyrel] 50 mg PO HS Tamsulosin [Flomax] 0.4 mg PO PC-SUPPER cap Magnesium Oxide [Mag-Ox] 400 mg PO DAILY tab bisacodyL [Dulcolax] 5 mg PO HS Aspirin EC [Ecotrin Low Dose] 81 mg PO DAILY methocarbamoL [Robaxin-750] 750 mg PO Q6H PRN PRN Reason: Muscle Spasm Atorvastatin [Lipitor] 40 mg PO HS Acetaminophen Tab [Tylenol] 650 mg PO Q6H PRN PRN Reason: Fever And/ Or Pain Levothyroxine Sodium [Synthroid] 175 mcg PO DAILY Ipratropium-Albuterol Nebulize [Duoneb 0.5 mg-3 mg/3 ml Soln] 3 ml INHALATION RT-Q2H PRN each PRN Reason: Shortness Of Breath Or Wheezing Clopidogrel [Plavix] 75 mg PO DAILY tab Pantoprazole [Protonix] 40 mg PO AC-BRKFST tab Polyvinyl Alcohol/Povidone [Clear Eyes Natural Tears Drop] 1 drop BOTH EYES QID PRN PRN Reason: Dry Eye(S) Ipratropium Mcgrew [Atrovent Hfa] 2 puff INHALATION RT-Q6H PRN PRN Reason: Shortness Of Breath Fluticasone/Umeclidin/Vilanter [Trelegy Ellipta 100-62.5-25] 1 puff INHALATION RT-DAILY INSULIN ASPART (NovoLOG) [NovoLOG (formulary)] See Protocol SQ AC-TID Changed Insulin Glargine,Hum.rec.anlog [Lantus Solostar Pen] 14 units SQ DAILY #0 Discontinued Metoprolol Tartrate [Lopressor] 12.5 mg PO BID hydrALAZINE HCL [Apresoline] 12.5 mg PO TID Cephalexin [Keflex] 500 mg PO Q12HR Torsemide [Demadex] 50 mg PO BID Discharge Medication List Levothyroxine Sodium [Synthroid] 175 mcg PO DAILY 02/02/22 [History] Ondansetron [Zofran] 4 mg PO Q8H PRN 02/06/24 [History] traZODone HCL [Desyrel] 50 mg PO HS 02/09/24 [History] Clopidogrel [Plavix] 75 mg PO DAILY tab 03/18/24 [Rx] Ipratropium-Albuterol Nebulize [Duoneb 0.5 mg-3 mg/3 ml Soln] 3 ml INHALATION RT-Q2H PRN each 03/18/24 [Rx] Magnesium Oxide [Mag-Ox] 400 mg PO DAILY tab 03/18/24 [Rx] Pantoprazole [Protonix] 40 mg PO AC-BRKFST tab 03/18/24 [Rx] Tamsulosin [Flomax] 0.4 mg PO PC-SUPPER cap 03/18/24 [Rx] Acetaminophen Tab [Tylenol] 650 mg PO Q6H PRN 06/30/24 [History] Aspirin EC [Ecotrin Low Dose] 81 mg PO DAILY 06/30/24 [History] Atorvastatin [Lipitor] 40 mg PO HS 06/30/24 [History] Fluticasone/Umeclidin/Vilanter [Trelegy Ellipta 100-62.5-25] 1 puff INHALATION RT-DAILY 06/30/24 [History] INSULIN ASPART (NovoLOG) [NovoLOG (formulary)] See Protocol SQ AC-TID 06/30/24 [History] Ipratropium Mcgrew [Atrovent Hfa] 2 puff INHALATION RT-Q6H PRN 06/30/24 [History] Polyvinyl Alcohol/Povidone [Clear Eyes Natural Tears Drop] 1 drop BOTH EYES QID PRN 06/30/24 [History] bisacodyL [Dulcolax] 5 mg PO HS 06/30/24 [History] methocarbamoL [Robaxin-750] 750 mg PO Q6H PRN 06/30/24 [History] Insulin Glargine,Hum.rec.anlog [Lantus Solostar Pen] 14 units SQ DAILY #0 07/05/24 [Rx] Metoprolol Succinate (ER) [Toprol XL] 25 mg PO DAILY #30 tab 07/05/24 [Rx] Torsemide [Demadex] 40 mg PO DAILY #30 tab 07/05/24 [Rx] hydrALAZINE HCL [Apresoline] 25 mg PO TID #90 tab 07/05/24 [Rx] Follow up Appointment(s)/Referral(s): Yokasta Lane MD [STAFF PHYSICIAN] - [facility] [facility] [NON-STAFF] - (Call for Meals on Wheels, help with transportation.) Liam Herndon,Home Care [NON-STAFF] - Papi Saavedra, [Primary Care Provider] - 1-2 days Activity/Diet/Wound Care/Special Instructions: Diet: Renal, 2L fluid restriction Resume dialysis schedule. Discharge/Stand Alone Forms: Who Do I Call?, [employer] Discharge Disposition: HOME SELF-CARE
--- NOTE | 2024-07-05 14:11 | P.PN ---
Subjective Progress Note Date: 07/05/24 This is a 59-year-old female patient who had a prolonged, complicated postoperative course following a cardiac surgery which involved four-vessel bypass surgery. Noted the patient is known to have coronary artery disease, ischemic cardiomyopathy with impaired LV function, chronic stage IV kidney disease that evolved into end-stage renal disease following her surgery and the patient is currently on hemodialysis. She is also known to have COPD, type 1 diabetes, hypertension hyperlipidemia and hypothyroidism and fibromyalgia. She is a former smoker. Noted following her discharge, the patient was hospitalized initially at [facility] and following that at [facility] where she was found to have pleural effusion and the patient underwent a thoracentesis on the right where more than 1 L of pleural fluid was aspirated. The exact fluid characteristics and chemistry is not known at this point. The patient was discharged home to be readmitted to the hospital after she missed 2 sessions of hemodialysis. Apparently, the patient was diagnosed having COVID-19 and she was feeling ill and she was unable to show up on her dialysis sessions. As such, she developed increased edema lower extremities bilaterally and worsening shortness of breath. Currently she is on IV Lasix. She is also going to undergo hemodialysis session today. She has a permacath over the right chest area. She is receiving Lasix 80 mg IV every 12 hours. Urine output is not that abundant. Meanwhile, the white cell count is 4.6 with a hemoglobin of 9.9 and platelet count of 160. Normal coagulation profile, BUN 37 with a creatinine of 2.1 and a sodium levels at 128 with a potassium level of 5.2. Glucose is at 340 this morning. proBNP level is 26,300 and the rest of the LFTs are essentially within normal limits. Initial lactic acid level is at 1.4. Chest x-ray was also reviewed and the patient was found to have bibasilar pulmonary filtrates and small pleural effusion worse on the left compared to the right. Nephrology on the case. The patient was started on empiric antibiotic coverage with IV Rocephin and Zithromax although there is no clear indication for an underlying pneumonia. Rest of the home medications have been resumed. She is on Levemir insulin 25 units daily along with NovoLog 2 units with meals and sliding scale coverage. She is on DuoNeb nebulized treatments [id number]. This point in time, the patient's breathing is nonlabored and the patient's pulse ox 98% on 2 L of oxygen by nasal cannula. On 07/02/2024, I am seeing the patient for a follow-up. The patient is stable for now and she does not have any significant respiratory distress patient underwent hemodialysis yesterday with a total of 2.5 L of ultrafiltration and the second session of hemodialysis being done this morning. The patient has no chest pain. No fever. No chills. No hemodynamic instability. She remains on oxygen 2 L/min nasal cannula. The white cell count from today is 4.9 with a hemoglobin 9.9. BUN 23 with a creatinine of 1.6 and a sodium levels at 130. The patient remains on DuoNeb nebulized treatments [id number]. The patient on Symbicort. The patient is currently on torsemide 40 mg p.o. daily and IV Lasix has been discontinued. She remains on Levemir insulin 25 units daily and NovoLog 2 units with meal and sliding scale coverage. Nephrology on the case. The chest x-ray was noted and there is no need for thoracentesis the patient's pleural effusions are essentially small and the patient will respond to hemodialysis and ultrafiltration. On 07/03/2024, the patient is being seen for a follow-up. The patient underwent 2 sessions of hemodialysis [id number]. The patient was again seen by nephrology today. No plans for dialysis today. She is going to undergo another session of hemodialysis tomorrow with ultrafiltration. She is currently on torsemide. No significant respiratory distress. Hemodynamically stable. She is afebrile. Pulse ox 97% 2 L of oxygen by nasal cannula. Denies having any chest pain. No other new complaints otherwise for now. Sodium is at 130, BUN 25 with a creatinine of 1.9. Potassium levels of 4.4. She is afebrile. No nausea. No emesis. No chest pain. No other complaints otherwise. 07/04/2024, patient is being seen for a follow-up. Doing well. Undergoing another session of hemodialysis today. The goal of ultrafiltration is 3 L for today. She has no specific complaints. She is on 2 L of oxygen by nasal cannula with a pulse ox of 94%. No respiratory distress. No cough or sputum p roduction. Surgical wound site is dry clean and intact. The patient has no new labs from today. Otherwise, the medications are essentially unchanged. She is on torsemide 40 mg p.o. Patient on Levemir insulin 25 units daily along with units of NovoLog with meals. She is on DuoNeb nebulized treatments [id number]. She remains on aspirin and Plavix. She is on metoprolol XL 25 mg p.o. daily. Ambulating. No fever. No chills. No other significant events overnight. On 07/05/2024, I am seeing the patient for a follow-up. The patient is doing extremely well. She underwent hemodialysis yesterday and repeat chest x-ray was done today and the patient was found to have some small limited pleural effusions bilaterally. Otherwise, she is doing well. Oxygenation is stable and the patient is currently on 2 L of oxygen nasal cannula with a pulse ox of 96%. Denies having any chest pain. Surgical wound site is dry clean and intact. No other significant events overnight. Objective - Vital Signs Vital signs: Vital Signs Temp 97.6 F 07/05/24 09:31 Pulse 75 07/05/24 09:31 Resp 16 07/05/24 09:31 BP 118/70 07/05/24 09:31 Pulse Ox 94 L 07/05/24 08:00 FiO2 Intake & Output 07/04/24 07/05/24 07/05/24 18:59 06:59 18:59 Intake Total 4018 10 410 Output Total 3400 8200 Balance 618 10 -7790 Weight 75 kg Intake: IV 20 10 10 Invasive Line 3 20 10 10 Oral 598 0 Hemodialysis 3400 400 Output: Urine 0 0 Hemodialysis 400 4300 Hemodialysis Net Amount 3000 3900 Other: Voiding Method Bedside Commode Bedside Commode Bedside Commode # Voids 1 # Bowel Movements 0 0 - Exam General Appearance the patient is coming For Liters of Oxygen by Nasal Cannula. Her Breathing Is Nonlabored and the Patient Is Not Using Accessory Muscles of Breathing. Head exam was generally normal. There was no scleral icterus or corneal arcus. Mucous membranes were moist. Neck was supple and without jugular venous distension, thyromegaly, or carotid bruits. Carotids were easily palpable bilaterally. There was no adenopathy. The patient is a permacath over the right anterior chest area. Lung sounds diminished bilaterally along with bibasilar crackles. Thoracotomy scar is dry clean and intact. Cardiac exam revealed the PMI to be normally situated and sized. The rhythm was regular and no extrasystoles were noted during several minutes of auscultation. The first and second heart sounds were normal and physiologic splitting of the second heart sound was noted. There were no murmurs, rubs, clicks, or gallops. Abdominal exam revealed normal bowel sounds. The abdomen was soft, non-tender, and without masses, organomegaly, or appreciable enlargement of the abdominal aorta. Extremities reveal +1 pitting edema there is no signs of clubbing Neurologically, the patient is awake and alert and the patient does not have any focal neurological deficit. Cranial nerves are essentially intact. There is generalized weakness in all 4 extremities. - Labs CBC & Chem 7: 07/02/24 07:17 07/03/24 08:30 Labs: Abnormal Lab Results - Last 24 Hours (Table) 07/04/24 07/04/24 07/05/24 Range/Units 16:42 20:56 06:16 POC Glucose (mg/dL) 248 H 144 H 44 L* (70-110) mg/dL 07/05/24 07/05/24 Range/Units 06:17 06:34 POC Glucose (mg/dL) 47 L* 59 L (70-110) mg/dL Microbiology - Last 24 Hours (Table) 07/01/24 13:01 Blood Culture - Preliminary Blood Assessment and Plan Plan: Acute hypoxic respiratory failure, the patient is, 2 L of Oxygen by Nasal Cannula. The Patient Has Some Limited Infiltration and Small effusion lung base bilaterally. The patient had undergone recent thoracentesis of the right lung and this was done at [facility] and the fluid analysis not available at. She does have obvious signs of fluid overload along with CHF. The patient is undergoing hemodialysis. The patient has already undergone 2 sessions of hemodialysis. Another session is to be done today. Nephrology on the case. Overall respiratory status is stable. Oxygenation stable and the patient remains on 2 L of oxygen by nasal cannula. The patient is undergoing hemodialysis with good clinical response. No significant respiratory distress Acute on chronic shortness of breath, likely secondary to above. Predominantly related to fluid overload and CHF. Clinically improving as the patient is undergoing hemodialysis and she has already undergone a total of 3 sessions and the volume status is improved. Chest x-ray from today only showing small bilateral pleural effusion. Bilateral effusion, status post right-sided thoracentesis that was done at [facility] approximately 3 weeks ago COVID 19 infection 3 weeks ago Multivessel coronary artery disease and the patient is status post acute non-ST elevation VT, the patient underwent four-vessel bypass surgery off-pump which included sequential RUSSO to To the LAD and diagonal and SVG to PDA and second obtuse marginal branch Ischemic cardiomyopathy with an estimated left ventricular ejection fraction severely impaired at 20 to 25% as well as moderate to severe mitral valve regurgitation Normocytic normochromic anemia, stable hemoglobin ERSRD on HD and the patient is undergoing hemodialysis 3 times a week Chronic obstructive pulmonary disease, stable Diabetes mellitus type 1 History of hyperlipidemia History of hypertension History of CVA/TIA History of hypothyroidism History of fibromyalgia History of GERD Former tobacco smoker as of 55 days ago, before this 1/2 pack/day or approximately 15-year pack history' Previous history of methamphetamine use Plan Patient volume status has been optimized with a repeat hemodialysis. Currently doing extremely well. Chest x-ray showing small bilateral pleural effusions. No respiratory distress. Continue torsemide 40 mg p.o. daily. Currently on 2 L of oxygen by nasal cannula Patient is to be discharged home today to be followed up on outpatient basis.
--- NOTE | 2024-07-05 15:01 | P.PN ---
Subjective Progress Note Date: 07/05/24 Reason for Consult (text): Heart failure History of present illness: This is 59-year-old patient of Dr. Saunders with past medical history of coronary artery disease, CVA, hypertension, hypothyroidism, diabetes mellitus type 2, end-stage renal disease on dialysis, remote history of tobacco use and dependence, COPD. We have been asked to evaluate the patient for heart failure. Patient was recently hospitalized in January through March 2024 for non-ST elevated myocardial infarction and heart failure with reduced EF, and underwent CABG x 4 on 02/25 with sequential left internal mammary artery to left anterior descending coronary artery and diagonal coronary artery, reverse saphenous vein graft to the posterior descending coronary artery and second obtuse marginal coronary artery, closure of the left atrial appendage. During that hospitalization, patient was started on hemodialysis and she also had a postop episode of paroxysmal atrial fibrillation. We have been asked to evaluate the patient for heart failure. Patient developed shortness of breath couple weeks ago that had worsened over the past few days. She was positive for COVID-19 2 weeks ago. Positive cough with clear sputum production. She has missed dialysis treatments since she has been ill. She states she was at [facility] had an echocardiogram done there recently and was also at [facility] had the right side of her lungs drained. Patient states that she was just discharged from [facility] on Monday. She states she has always nauseated. No blood in her stools or urine. She denies any use of caffeine or alcohol. Blood pressure 127/68, heart rate 75, pulse ox 97% on 2 L nasal cannula. Patient received 1 dose of IV steroids, Nitro-Bid and started on IV Lasix 80 mg every 12 hours. EKG: Sinus rhythm with IVCD Chest x-ray: Worsening bibasilar infiltrates and small left pleural effusion. Laboratory studies: WBC 4.6, hemoglobin 9.9. Sodium 130, potassium 5.7, BUN 29, creatinine 1.78. Glucose 238. proBNP 26,300. Troponin 0.016. Alkaline p hosphatase 132, AST 37. Home cardiac medications: Aspirin 81 mg daily, Lipitor 40 mg at bedtime, Plavix 75 mg daily, hydralazine 12.5 mg 3 times daily, magnesium oxide 400 mg daily, Lopressor 12.5 mg twice daily, Demadex 50 mg twice daily, patient also on levothyroxine 175 mcg daily. [place] performed on 02/06/2024 revealed: Mild mitral regurgitation, mild tricuspid regurgitation, no PFO, left atrial appendage free of clot, EF 35% with global hypokinesis. Cardiac catheterization performed 02/06/2024 revealed calcified coronary arteries, severe triple-vessel disease, right dominance, mildly elevated LVEDP. Echocardiogram performed on 03/05/2024 revealed EF of 15 to 20% severely reduced global left ventricular systolic function, a typical septal motion with intraventricular dyssynchrony. No obvious evidence of LV thrombus. No pericardial effusion. Echocardiogram performed on 06/18/2024 at [facility] revealed EF of 30%. Severe mitral and tricuspid regurgitation. Mild to moderate aortic insufficiency. No significant pericardial effusion. 07/02 Patient is seen today in follow-up. She is receiving hemodialysis today. No complaints of chest pain, shortness of breath is stable. Blood pressure 144/87, heart rate 85, pulse ox 96% on 3 L nasal cannula. Repeat blood work reveals WBC 4.9, hemoglobin 9.9. BUN 23 creatinine 1.63. IV Lasix has been discontinued by nephrology and patient started on oral torsemide. Information from [facility] has not been obtained. 07/03 Patient states that she is feeling better today. Breathing is improved. She is undergoing HD today and tomorrow. Lower extremity edema is improved. She denies having chest pain, no dizziness. Blood pressure 119/73, heart rate 82, pulse ox 97% on 2 L nasal cannula. Repeat blood work reveals sodium 130, potassium 4.4, BUN 25 and creatinine 1.9. Documentation from [facility] has not been obtained. 07/04 Patient is seen today in follow-up. Blood pressure is better today. She is feeling improved as well. She has less lower extremity edema today. She slept okay. No chest pain and no shortness of breath. Patient states that she will be discharged home tomorrow following dialysis treatment. Blood pressure 125/70, heart rate in the 70s, pulse ox 97% on 2 L nasal cannula. Telemetry sinus rhythm. 07/05 Patient has no new complaints today. No chest pain. Lower extremity edema is improving. She is scheduled for dialysis today and planning for discharge home today. Blood pressure 120/72, heart rate 72, pulse ox 96% on 2 L nasal cannula. Physical examination: Gen: This is a 59-year-old female appears to be in no acute distress VS: reviewed HEENT: Head is atraumatic, normocephalic. Pupils equal, round. Sclerae is anicteric. NECK: Supple. No JVD. LUNGS: Diminished breath sounds. Bilateral wheeze no intercostal retractions. HEART: Regular rate and rhythm. No murmur. ABDOMEN: Soft No tenderness. EXTREMITIES: Bilateral lower extremity edema. No calf tenderness. NEUROLOGICAL: Patient is awake, alert and oriented x3. Assessment: Acute on chronic systolic heart failure Ischemic cardiomyopathy Coronary artery disease status post CABG Recent COVID-19 2 weeks ago Hypertension CVA Diabetes mellitus type 2 End-stage renal disease on hemodialysis Remote history of tobacco use and dependence COPD Plan: Continue current cardiac medications: Atorvastatin 40 mg at bedtime, Plavix 75 mg daily, hydralazine 25 mg 3 times daily Continue metoprolol succinate 25 mg daily Continue patient on torsemide 40 mg daily per nephrology Patient is cleared for discharge from cardiology and may follow-up with Dr. Saunders in 1 to 2 weeks. Nurse practitioner note has been reviewed, I agree with documented findings and plan of care. Patient was seen and examined. Objective - Vital Signs Vital signs: Vital Signs Temp 97.6 F 07/05/24 09:31 Pulse 72 07/05/24 12:00 Resp 16 07/05/24 12:00 BP 120/72 07/05/24 12:00 Pulse Ox 94 L 07/05/24 08:00 FiO2 Intake & Output 07/04/24 07/05/24 07/05/24 18:59 06:59 18:59 Intake Total 4018 10 650 Output Total 3400 8200 Balance 618 10 -7550 Weight 75 kg Intake: IV 20 10 10 Invasive Line 3 20 10 10 Oral 598 0 240 Hemodialysis 3400 400 Output: Urine 0 0 Hemodialysis 400 4300 Hemodialysis Net Amount 3000 3900 Other: Voiding Method Bedside Commode Bedside Commode Bedside Commode # Voids 0 # Bowel Movements 0 0 - Labs CBC & Chem 7: 07/02/24 07:17 07/03/24 08:30 Labs: Abnormal Lab Results - Last 24 Hours (Table) 07/04/24 07/04/24 07/05/24 Range/Units 16:42 20:56 06:16 POC Glucose (mg/dL) 248 H 144 H 44 L* (70-110) mg/dL 07/05/24 07/05/24 07/05/24 Range/Units 06:17 06:34 11:34 POC Glucose (mg/dL) 47 L* 59 L 173 H (70-110) mg/dL Microbiology - Last 24 Hours (Table) 07/01/24 13:01 Blood Culture - Preliminary Blood
[2024-07-05 22:17] LABS: % Iron Saturation 49.28 (12.00-45.00)
== END 2024-07-05 14:23 | disposition home or self-care (01) | DRG 291 ==
LOC: EC 07:48 → 3SCARD 09:42
PROVIDERS: ADMIT Internal Medicine; ATTEND Internal Medicine
PROC: 5A1D70Z Performance of Urinary Filtration, Intermittent, Less than 6 Hours Per Day (ICD-10-PCS; principal; 2024-07-01)
DX: I13.2 Hypertensive heart and chronic kidney disease with heart failure and with stage 5 chronic kidney disease, or end stage renal disease (principal); I50.23 Acute on chronic systolic (congestive) heart failure; N18.6 End stage renal disease; N17.0 Acute kidney failure with tubular necrosis; J96.91 Respiratory failure, unspecified with hypoxia; E87.1 Hypo-osmolality and hyponatremia; J44.9 Chronic obstructive pulmonary disease, unspecified; D63.1 Anemia in chronic kidney disease; E03.9 Hypothyroidism, unspecified; E78.5 Hyperlipidemia, unspecified; E83.42 Hypomagnesemia; E87.5 Hyperkalemia; I08.3 Combined rheumatic disorders of mitral, aortic and tricuspid valves; I25.10 Atherosclerotic heart disease of native coronary artery without angina pectoris; I25.2 Old myocardial infarction; E10.22 Type 1 diabetes mellitus with diabetic chronic kidney disease; I25.5 Ischemic cardiomyopathy; M79.7 Fibromyalgia; Z82.49 Family history of ischemic heart disease and other diseases of the circulatory system; E10.65 Type 1 diabetes mellitus with hyperglycemia; I48.0 Paroxysmal atrial fibrillation; S81.802A Unspecified open wound, left lower leg, initial encounter; G62.9 Polyneuropathy, unspecified; F32.A Depression, unspecified; F41.9 Anxiety disorder, unspecified; X58.XXXA Exposure to other specified factors, initial encounter; Z79.02 Long term (current) use of antithrombotics/antiplatelets; Z79.4 Long term (current) use of insulin; Z79.51 Long term (current) use of inhaled steroids; Z79.82 Long term (current) use of aspirin; Z79.890 Hormone replacement therapy; Z79.899 Other long term (current) drug therapy; Z87.891 Personal history of nicotine dependence; Z95.1 Presence of aortocoronary bypass graft; Z99.2 Dependence on renal dialysis; Z86.16 Personal history of COVID-19; Z86.73 Personal history of transient ischemic attack (TIA), and cerebral infarction without residual deficits; Z91.158 Patient's noncompliance with renal dialysis for other reason
CPT/HCPCS: 36415; 71045; 71046; 80048; 80053; 82728; 83036; 83540; 83550; 83605; 83735; 83880; 84145; 84484; 85025; 85610; 85730; 87040; 90935; 93005; 94640; 94760; 96374; 99285

== ENCOUNTER 2024-07-09 13:14 | Inpatient (IN) | payer MEDICARE ==
--- NOTE | 2024-07-09 13:38 | ED ---
SOB HPI - General Source: patient, RN notes reviewed Mode of arrival: EMS Limitations: no limitations <Anjana Naqvi - Last Filed: 07/09/24 13:37> - General Source: patient, RN notes reviewed, old records reviewed Mode of arrival: EMS Limitations: no limitations - History of Present Illness MD Complaint: shortness of breath -: days(s) Known History Of: COPD, asthma, congestive heart failure Context: recent URI, recent illness Associated Symptoms: chest pain, pain with inspiration, cough, sputum production, orthopnea Treatments Prior to Arrival: oxygen <José Miguel Faria - Last Filed: 07/13/24 17:23> - General Chief Complaint: Shortness of Breath Stated Complaint: DIANA Time Seen by Provider: 07/09/24 13:31 - History of Present Illness Initial Comments: Samantha boubacar is a 59-year-old female presents emergency department via EMS for chief complaint of shortness of breath. Patient has a history of COPD and wears 3 L of nasal cannula. Patient was admitted to the hospital and discharged this past Monday. Reports worsening cough. History of heart failure. (Anjana Naqvi) This is a 59-year-old female to the ER for evaluation of shortness of breath and abdominal pain patient is history of COPD and CHF, patient needs to have dialysis and went to dialysis today was unable to go to dialysis because of significant shortness of breath (José Miguel Faria) - Related Data Home Medications Medication Instructions Recorded Confirmed Levothyroxine Sodium [Synthroid] 175 mcg PO DAILY 02/02/22 07/09/24 Ondansetron [Zofran] 4 mg PO Q8H PRN 02/06/24 07/09/24 traZODone HCL [Desyrel] 50 mg PO HS 02/09/24 07/09/24 Acetaminophen Tab [Tylenol] 650 mg PO Q6H PRN 06/30/24 07/09/24 Aspirin EC [Ecotrin Low Dose] 81 mg PO DAILY 06/30/24 07/09/24 Atorvastatin [Lipitor] 40 mg PO HS 06/30/24 07/09/24 Fluticasone/Umeclidin/Vilanter 1 puff INHALATION RT-DAILY 06/30/24 07/09/24 [Trelegy Ellipta 100-62.5-25] INSULIN ASPART (NovoLOG) [NovoLOG See Protocol SQ AC-TID 06/30/24 07/09/24 (formulary)] Ipratropium [place] [Atrovent Hfa] 2 puff INHALATION RT-Q6H PRN 06/30/24 07/09/24 Polyvinyl Alcohol/Povidone [Clear 1 drop BOTH EYES QID PRN 06/30/24 07/09/24 Eyes Natural Tears Drop] bisacodyL [Dulcolax] 5 mg PO HS 06/30/24 07/09/24 methocarbamoL [Robaxin-750] 750 mg PO Q6H PRN 06/30/24 07/09/24 Previous Rx's Medication Instructions Recorded Clopidogrel [Plavix] 75 mg PO DAILY tab 03/18/24 Ipratropium-Albuterol Nebulize 3 ml INHALATION RT-Q2H PRN each 03/18/24 [Duoneb 0.5 mg-3 mg/3 ml Soln] Magnesium Oxide [Mag-Ox] 400 mg PO DAILY tab 03/18/24 Pantoprazole [Protonix] 40 mg PO AC-BRKFST tab 03/18/24 Tamsulosin [Flomax] 0.4 mg PO PC-SUPPER cap 03/18/24 Insulin Glargine,Hum.rec.anlog 14 units SQ DAILY #0 07/05/24 [Lantus Solostar Pen] Metoprolol Succinate (ER) [Toprol 25 mg PO DAILY #30 tab 07/05/24 XL] Torsemide [Demadex] 40 mg PO DAILY #30 tab 07/05/24 hydrALAZINE HCL [Apresoline] 25 mg PO TID #90 tab 07/05/24 Allergies Allergy/AdvReac Type Severity Reaction Status Date / Time Sulfa (Sulfonamide Allergy Rash/Hives Verified 07/09/24 18:47 Antibiotics) Review of Systems ROS Other: All systems not noted in ROS Statement are negative. <Anjana Naqvi - Last Filed: 07/09/24 13:37> ROS Other: All systems not noted in ROS Statement are negative. <José Miguel Faria - Last Filed: 07/13/24 17:23> ROS Statement: Those systems with pertinent positive or pertinent negative responses have been documented in the HPI. Past Medical History Past Medical History: Coronary Artery Disease (CAD), Chest Pain / Angina, Heart Failure, COPD, CVA/TIA, Diabetes Mellitus, Fibromyalgia, GERD/Reflux, Hyperlipidemia, Hypertension, Liver Disease, Myocardial Infarction (ND), Osteoarthritis (OA), Renal Disease, Thyroid Disorder Additional Past Medical History / Comment(s): NEUROPATHY BILATERAL FEET, DDD NECK AND LOWER BACK, hiatal hernia, states no need for BP med anymore(gets orthostatic hypotension-has "medtronic heart loop monitor"), hx hepatitis as a kid, hx fractrured left wrist, hx stroke 03/03/22-problems with balance since. Last Myocardial Infarction Date:: 02/2024 History of Any Multi-Drug Resistant Organisms: MRSA Date of last positivie culture/infection: 2017 MDRO Source:: stomach Past Surgical History: Adenoidectomy, Back Surgery, Bladder Surgery, Hysterectomy, Orthopedic Surgery, Tonsillectomy, Tubal Ligation Additional Past Surgical History / Comment(s): Debridement right foot, PICC line placed and later removed, bladder suspension, exploratory laparotomy, right great toe amputation, pins right in foot, cataracts removed, left wrist ORIF, loop heart monitor placed 02/2022. Past Anesthesia/Blood Transfusion Reactions: No Reported Reaction, Motion Sickness Additional Past Anesthesia/Blood Transfusion Reaction / Comment(s): . Type of Cardiac Device: Loop Past Psychological History: Anxiety, Depression Smoking Status: Former smoker Past Alcohol Use History: Occasional Past Drug Use History: Marijuana, Methamphetamine - Past Family History Sister(s) Family Medical History: Coronary Artery Disease (CAD) Mother Family Medical History: Pulmonary Embolus Additional Family Medical History / Comment(s): . Father Additional Family Medical History / Comment(s): at 26yrs old--accident at work <Anjana Naqvi - Last Filed: 07/09/24 13:37> General Exam Limitations: no limitations <Anjana Naqvi - Last Filed: 07/09/24 13:37> General appearance: alert, in no apparent distress Head exam: Present: atraumatic, normocephalic, normal inspection Eye exam: Present: normal appearance, PERRL, EOMI. Absent: scleral icterus, conjunctival injection, periorbital swelling ENT exam: Present: normal exam, mucous membranes moist Neck exam: Present: normal inspection. Absent: tenderness, meningismus, lymphadenopathy Respiratory exam: Present: normal lung sounds bilaterally. Absent: respiratory distress, wheezes, rales, rhonchi, stridor Cardiovascular Exam: Present: regular rate, normal rhythm, normal heart sounds. Absent: systolic murmur, diastolic murmur, rubs, gallop, clicks GI/Abdominal exam: Present: soft, normal bowel sounds. Absent: distended, tenderness, guarding, rebound, rigid Extremities exam: Present: normal inspection, full ROM, normal capillary refill. Absent: tenderness, pedal edema, joint swelling, calf tenderness Back exam: Present: normal inspection Neurological exam: Present: alert, oriented X3, CN II-XII intact Psychiatric exam: Present: normal affect, normal mood Skin exam: Present: warm, dry, intact, normal color. Absent: rash <José Miguel Faria - Last Filed: 07/13/24 17:23> - General Exam Comments Initial Comments: Visual Physical Exam Vital signs reviewed General: Well-appearing, nontoxic, no acute distress. Head: Normocephalic, atraumatic Eyes: PERRLA, EOMI ENT: Airway patent Chest: Nonlabored breathing Skin: No visual rash, normal skin tone Neuro: Alert and oriented 3 Musculoskeletal: No gross abnormalities (Stieler,Anjana) Course <José Miguel Faria - Last Filed: 07/13/24 17:23> Vital Signs 07/09/24 07/09/24 07/09/24 13:25 16:45 17:05 Temperature 97.3 F L Pulse Rate 85 85 Respiratory 16 17 22 Rate Blood Pressure 127/79 136/83 O2 Sat by Pulse 98 99 Oximetry 07/09/24 07/09/24 07/09/24 18:32 19:34 20:27 Temperature 97.9 F Pulse Rate 87 88 84 Respiratory 18 19 Rate Blood Pressure 148/88 138/74 O2 Sat by Pulse 92 L 95 Oximetry 07/09/24 07/09/24 07/09/24 20:33 21:15 21:25 Temperature Pulse Rate 88 85 86 Respiratory 20 19 Rate Blood Pressure 138/82 138/82 O2 Sat by Pulse 95 95 Oximetry - Reevaluation(s) Reevaluation #1: 07/09/24 18:20 Patient informed of results and questions answered (José Miguel Faria) Reevaluation #2: 07/09/24 18:21 Patient symptoms unchanged (José Miguel Faria) Reevaluation #3: 07/09/24 18:21 Patient informed of results and questions answered (José Miguel Faria) Reevaluation #4: Was pt. sent in by a medical professional or institution (, TOM, CUT OUT MACHINE OPERATOR, urgent care, hospital, or shelter...) When possible be specific @ -no Did you speak to anyone other than the patient for history (EMS, parent, family, police, friend...)? What history was obtained from this source @ -no Did you review nursing and triage notes (agree or disagree)? Why? @ -agree Are old charts reviewed (outside hosp., previous admission, EMS record, old EKG, old radiological studies, urgent care reports/EKG's, shelter records)? Report findings @ -yes Differential Diagnosis (chest pain, altered mental status, abdominal pain women, abdominal pain men, vaginal bleeding, weakness, fever, dyspnea, syncope, headache, dizziness, GI bleed, back pain, seizure, CVA, palpatations, mental health, musculoskeletal)? @ -prior EKG interpreted by me (3pts min.). @ -yes X-rays interpreted by me (1pt min.). @ -yes for CHF and effusions se CT interpreted by me (1pt min.). @ -no U/S interpreted by me (1pt. min.). @ -no What testing was considered but not performed or refused? (CT, X-rays, U/S, labs)? Why? @ -none What meds were considered but not given or refused? Why? @ -none Did you discuss the management of the patient with other professionals (professionals i.e. TOM Olson, CUT OUT MACHINE OPERATOR, lab, RT, psych nurse, social science manager, staff field engineer, teacher, penal officer, nurse case manager)? Give summary @ -no Was smoking cessation discussed for >3mins.? @ -no Was critical care preformed (if so, how long)? @ -no Were there social determinants of health that impacted care today? How? (Homelessness, low income, unemployed, alcoholism, drug addiction, tra nsportation, low edu. Level, literacy, decrease access to med. care, shelter, rehab)? @ -none Was there de-escalation of care discussed even if they declined (Discuss DNR or withdrawal of care, Hospice)? DNR status @ -no What co-morbidities impacted this encounter? (DM, HTN, Smoking, COPD, CAD, Cance r, CVA, ARF, Chemo, Hep., AIDS, mental health diagnosis, sleep apnea, morbid obesity)? @ -none Was patient admitted / discharged? Hospital course, mention meds given and route, prescriptions, significant lab abnormalities, going to OR and other pertinent info. @ - 59 female to CHF COPD and respiratory failure patient believes she needs outpatient home O2, unable to get diet to dialysis secondary to shortness of breath Admitted Undiagnosed new problem with uncertain prognosis? @ -no Drug Therapy requiring intensive monitoring for toxicity (Heparin, Nitro, Insulin, Cardizem)? @ -no Were any procedures done? @ -no Diagnosis/symptom? @ -COPD CHF hypoxia Acute, or Chronic, or Acute on Chronic? @ -Acute Uncomplicated (without systemic symptoms) or Complicated (systemic symptoms)? @ -Complicated Side effects of treatment? @ -no Exacerbation, Progression, or Severe Exacerbation? @ -exacerbation Poses a threat to life or bodily function? How? (Chest pain, USA, ND, pneumonia, PE, COPD, DKA, ARF, appy, cholecystitis, CVA, Diverticulitis, Homicidal, Suicidal, threat to staff... and all critical care pts) @ -yes respiratory distress and comorbidities (José Miguel Faria) Reevaluation #5: Differential Dyspnea: Coronary syndrome, arrhythmia, tamponade, asthma, COPD, pulmonary embolism, pneumonia, pneumothorax, pulmonary effusion, anaphylaxis, diabetic ketoacidosis, flailed chest, pulmonary contusion, diaphragmatic rupture, anemia, neuromus cular, this is not meant to be an all-inclusive list. (José Miguel Faria) - Consultations Consultation #1: Spoke with sound who agrees to admit the patient (José Miguel Faria) Medical Decision Making <Anjana Naqiv - Last Filed: 07/09/24 13:37> - Lab Data Result diagrams: 07/13/24 09:14 07/13/24 09:14 - EKG Data -: EKG Interpreted by Me (EKG is sinus 84 PA 151 QRS 145 QTc 486) - Radiology Data Radiology results: report reviewed (Chest x-ray has effusions bilateral from prior), image reviewed <José Miguel Faria - Last Filed: 07/13/24 17:23> - Medical Decision Making I completed the quick note portion of this chart signed Anjana Naqvi PA-C (Anjana Naqvi) 59 female to CHF COPD and respiratory failure patient believes she needs outpatient home O2, unable to get diet to dialysis secondary to shortness of breath (José Miguel Faria) - Lab Data Lab Results 07/09/24 07/09/24 07/09/24 Range/Units 15:51 15:51 15:51 WBC 4.6 (3.8-10.6) k/uL RBC 3.70 L (3.80-5.40) m/uL Hgb 11.4 (11.4-16.0) gm/dL Hct 35.6 (34.0-46.0) % MCV 96.1 (80.0-100.0) fL MCH 30.8 (25.0-35.0) pg MCHC 32.0 (31.0-37.0) g/dL RDW 15.5 (11.5-15.5) % Plt Count 290 (150-450) k/uL MPV 7.6 Neutrophils % 76 % Lymphocytes % 14 % Monocytes % 4 % Eosinophils % 3 % Basophils % 0 % Neutrophils # 3.5 (1.3-7.7) k/uL Lymphocytes # 0.7 L (1.0-4.8) k/uL Monocytes # 0.2 (0-1.0) k/uL Eosinophils # 0.1 (0-0.7) k/uL Basophils # 0.0 (0-0.2) k/uL Hypochromasia Moderate PT 10.3 (10.0-12.5) sec INR 0.9 (<1.2) APTT 25.3 (22.0-30.0) sec Sodium 129 L (137-145) mmol/L Potassium 5.7 H (3.5-5.1) mmol/L Chloride 96 L (98-107) mmol/L Carbon Dioxide 24 (22-30) mmol/L Anion Gap 9 mmol/L BUN 34 H (7-17) mg/dL Creatinine 2.09 H (0.52-1.04) mg/dL Est GFR (CKD-EPI)AfAm 29 (>60 ml/min/1.73 sqM) Est GFR (CKD-EPI)NonAf 25 (>60 ml/min/1.73 sqM) Glucose 280 H (74-99) mg/dL Calcium 8.4 (8.4-10.2) mg/dL Magnesium 1.8 (1.6-2.3) mg/dL Total Bilirubin 0.9 (0.2-1.3) mg/dL AST 24 (14-36) U/L ALT 13 (4-34) U/L Alkaline Phosphatase 129 H (38-126) U/L Troponin I (0.000-0.034) ng/mL NT-Pro-B Natriuret Pep 29084 pg/mL Total Protein 6.5 (6.3-8.2) g/dL Albumin 3.3 L (3.5-5.0) g/dL 07/09/24 Range/Units 15:51 WBC (3.8-10.6) k/uL RBC (3.80-5.40) m/uL Hgb (11.4-16.0) gm/dL Hct (34.0-46.0) % MCV (80.0-100.0) fL MCH (25.0-35.0) pg MCHC (31.0-37.0) g/dL RDW (11.5-15.5) % Plt Count (150-450) k/uL MPV Neutrophils % % Lymphocytes % % Monocytes % % Eosinophils % % Basophils % % Neutrophils # (1.3-7.7) k/uL Lymphocytes # (1.0-4.8) k/uL Monocytes # (0-1.0) k/uL Eosinophils # (0-0.7) k/uL Basophils # (0-0.2) k/uL Hypochromasia PT (10.0-12.5) sec INR (<1.2) APTT (22.0-30.0) sec Sodium (137-145) mmol/L Potassium (3.5-5.1) mmol/L Chloride (98-107) mmol/L Carbon Dioxide (22-30) mmol/L Anion Gap mmol/L BUN (7-17) mg/dL Creatinine (0.52-1.04) mg/dL Est GFR (CKD-EPI)AfAm (>60 ml/min/1.73 sqM) Est GFR (CKD-EPI)NonAf (>60 ml/min/1.73 sqM) Glucose (74-99) mg/dL Calcium (8.4-10.2) mg/dL Magnesium (1.6-2.3) mg/dL Total Bilirubin (0.2-1.3) mg/dL AST (14-36) U/L ALT (4-34) U/L Alkaline Phosphatase (38-126) U/L Troponin I <0.012 (0.000-0.034) ng/mL NT-Pro-B Natriuret Pep pg/mL Total Protein (6.3-8.2) g/dL Albumin (3.5-5.0) g/dL Disposition <Anjana Naqvi - Last Filed: 07/09/24 13:37> Is patient prescribed a controlled substance at d/c from ED?: No Time of Disposition: 18:20 <José Miguel Faria - Last Filed: 07/13/24 17:23> Clinical Impression: Systolic congestive heart failure, Diastolic congestive heart failure, Acute pulmonary edema, Acute exacerbation of chronic obstructive pulmonary disease, COPD (chronic obstructive pulmonary disease) Disposition: ADMITTED IP TO THIS HOSP Condition: Fair
--- NOTE | 2024-07-09 15:09 | XR ---
EXAMINATION TYPE: XR chest 2V DATE OF EXAM: 07/09/2024 2:09 PM CLINICAL INDICATION: Female, 59 years old with history of difficulty breathing; [facility] COMPARISON: Chest radiographs from 07/05/2024 TECHNIQUE: XR chest 2V Frontal view of the chest. FINDINGS: Lungs/Pleura: There is no evidence of pleural effusion, focal consolidation, or pneumothorax. Pulmonary vascularity: Pulmonary vascular congestion. Heart/mediastinum: Cardiomediastinal silhouette is unremarkable. Left atrial appendage occlusion baldemar ce is present. Loop recorder present. Musculoskeletal: No acute osseous pathology. Midline sternotomy wires are noted. Other findings: None Lines/Tubes: Right internal jugular central venous catheter with distal tip at the cavoatrial junction. IMPRESSION: Pulmonary vascular congestion with small bilateral pleural effusions similar prior 07/05/2024 [facility] Clark, , 07/09/2024 3:07 PM
[2024-07-09 16:13] LABS: Basophils % (A) 0 %; Eosinophils # (A) 0.1 k/uL (0-0.7); Eosinophils % (A) 3 %; HCT 35.6 % (34.0-46.0); HGB 11.4 gm/dL (11.4-16.0); Hypochromasia Moderate; Lymphocytes # (A) 0.7 k/uL (1.0-4.8); Lymphocytes % (A) 14 %; MCH 30.8 pg (25.0-35.0); MCV 96.1 fL (80.0-100.0); Mean Platelet Volume 7.6; Monocytes # (A) 0.2 k/uL (0-1.0); Monocytes % (A) 4 %; Neutrophils # (A) 3.5 k/uL (1.3-7.7); Neutrophils % (A) 76 %; Platelet Count 290 k/uL (150-450); RDW 15.5 % (11.5-15.5); WBC 4.6 k/uL (3.8-10.6)
[2024-07-09 16:25] LABS: INR 0.9 (<1.2); Partial Thromboplastin Time 25.3 sec (22.0-30.0); Prothrombin Time 10.3 sec (10.0-12.5)
[2024-07-09 16:27] LABS: ALT 13 U/L (4-34); African American GFR (CKD) 29 (>60 ml/min/1.73 sqM); Anion Gap 9 mmol/L; Blood Urea Nitrogen 34 mg/dL (7-17); Calcium 8.4 mg/dL (8.4-10.2); Carbon Dioxide 24 mmol/L (22-30); Chloride 96 mmol/L (98-107); Glucose 280 mg/dL (74-99); Non-African American GFR(CKD) 25 (>60 ml/min/1.73 sqM); Sodium 129 mmol/L (137-145); Total Bilirubin 0.9 mg/dL (0.2-1.3)
[2024-07-09 16:35] LABS: NT-Pro-B-Type Natriuretic Pept 24200 pg/mL
[2024-07-09 16:47] LABS: Magnesium 1.8 mg/dL (1.6-2.3); Potassium 5.7 mmol/L (3.5-5.1)
[2024-07-09 16:48] LABS: AST 24 U/L (14-36); Albumin 3.3 g/dL (3.5-5.0); Alkaline Phosphatase 129 U/L (38-126); Total Protein 6.5 g/dL (6.3-8.2)
[2024-07-09] MEDS ORDERED: ONDANSETRON 4 MG/2 ML VIAL IVP PRN (18:15)
[2024-07-09] MEDS ORDERED: NALOXONE 0.4 MG/ML 1 ML VIAL IV PRN (18:15)
[2024-07-09] MEDS: SODIUM CHLORIDE 0.9% 1,000 ML IV SCH (18:30)
[2024-07-09] MEDS: HYDROmorphone 1 MG/ML 1 ML SYRINGE IVP STA (18:31)
[2024-07-09] MEDS ORDERED: IPRATROPIUM-ALBUTEROL 3 ML NEB INHALATION PRN (19:41)
[2024-07-09] MEDS: ALBUTEROL NEBULIZED 2.5 MG/3 ML INHALATION SCH (19:41)
[2024-07-09] MEDS: IPRATROPIUM-ALBUTEROL 3 ML NEB INHALATION STA (20:12)
[2024-07-09] MEDS: IPRATROPIUM-ALBUTEROL 3 ML NEB INHALATION SCH (20:25)
[2024-07-09] MEDS ORDERED: ACETAMINOPHEN TAB 325 MG TAB PO PRN (21:09)
[2024-07-09] MEDS ORDERED: methocarbamoL 750 MG TAB PO PRN (21:09)
[2024-07-09] MEDS ORDERED: ARTIFICIAL TEARS-HYPROMELLOSE DROPS 15 ML BTL BOTH EYES PRN (21:09)
--- NOTE | 2024-07-09 21:13 | P.HPIM ---
History of Present Illness H&P Date: 07/09/24 Chief Complaint: Shortness of breath Patient is a 59-year-old female with congestive heart failure with reduced ejection fraction and chronic obstructive pulmonary disease presented to the ED with shortness of breath. She mentions of having COVID infection a month ago. Since then her shortness of breath has been progressively worsening. Today she cannot even get up to go to the bathroom without getting short of breath and also gets short of breath while talking. She states having a cough but very minimal greenish-yellow phlegm production. She is using oxygen at home at 3 L. She also complains of headache,nausea, orthopnea , paroxysmal nocturnal dyspnea and sleeps on a recliner. 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 She has been getting regular dialysis every Monday, Monday, Monday but missed her dialysis yesterday because of difficulty breathing. She was admitted here on 06/30/2024 with similar symptoms, for CHF exacerbation and got dialysis for 5 days. She also reports of recent hospitalizations at [place] where she got pleural tap on the right side. Denies fever, vomiting, diarrhea, chest pain, palpitations, hemoptysis, blood in the urine or stool. ED workup revealed proBNP 00164, troponin 1 <0.012 and chest x-ray that shows pulmonary vascular congestion with small bilateral pleural effusion similar to prior on 07/05/2024. In the ED she was treated with Dilaudid, DuoNebs and 0.9 normal saline. Vitals: T97.3F, P 85 bpm, RR 16, BP 127/79, O2 sat 98% on room air Coag: PT 10.3, INR 0.9, APTT 25.3 EKG: Sinus rhythm, rate of 84 bpm, QTc 486 ms, LVH, poor R wave progression ED documentation reviewed. Review of systems: Pertinent positives and negatives as discussed in HPI, a complete review of systems was performed and all other systems are negative. PMH: CAD, heart failure, COPD, stroke, diabetes, GERD, hyperlipidemia, hypertension, thyroid disorder PSH: Open heart in February 2024, expiratory laparotomy, right toe amputation, wrist and ankle surgery for fracture FMH: Breast cancer, CAD with stents Social history: Tobacco: Former smoker 30 pack years, quit since December 2023 Alcohol: Denies use Recreational drugs: Denies use Travel: No recent travel history Sick contacts: None Physical examination: Vital signs reviewed General: Mild distress, appears at stated age, normal BMI Derm: bandages on left LE for wound, warm Head: atraumatic, normocephalic, symmetric Eyes: EOMI,anicteric sclera, ENT: Nose and ears atraumatic Mouth: no lip lesion, mucus membranes moist Cardiovascular: S1S2 reg, no murmur,B/l pitting edema Lungs: Diminished lung sounds bilaterally, no accessory muscle use Abdominal: soft, nontender to palpation, no guarding Ext: no gross muscle atrophy, no contractures, Neuro: CN II-XI grossly intact, no gross focal neuro deficits Psych: Alert, oriented, appropriate affect Assessment/Plan: Patient is a 59-year-old female with HFrEF and COPD presented to the ED with shortness of breath. Case discussed with the ED provider and admission accepted for CHF exacerbation. #. Acute on chronic CHF exacerbation multifactorial including missing HD session today Acute hypoxic respiratory failure Last known EF (06/18/2024) 25% elevated proBNP 43331, negative troponin <0.012 Lasix 40 mg IV BID monitor electrolytes daily weight patient missed HD session supplemental oxygen as needed CXR showing pulmonary vascular congestion and left pleural effusion more than right #. COPD Continue DuoNebs RT 4 times daily and every 2 hours as needed, resume fluticasone 1 puff qhs Chest x-ray pulmonary vascular congestion with small bilateral pleural effusion similar to prior on 07/05/2024. Pulmonology consulted for pneumonia Viral respiratory panel Procalcitonin Supplemental oxygen is required, currently on 3 L nasal cannula check for home oxygen requirement prior to discharge #. ESRD on dialysis BUN 34, creatinine 2.09, GFR 25 HD Dialysis every Monday, Monday, Monday Missed yesterday's dialysis session, had dialysis for 5 days when she was admitted recently, last on 07/05/2024 Nephrology consulted #. Hypervolemic Hyponatremia Sodium 129 Monitor BMP #. Hyperkalemia, 2/2 ESRD and missing HD Monitor BMP will correct with HD with nephrology monitor K EKG showing no acute T wave changes #. Insulin-dependent diabetes mellitus Glucose 280 Insulin sliding scale and blood glucose monitoring #. History of CAD, CABG in February 2024 Continue metoprolol 25 mg p.o. daily, clopidogrel 75 mg p.o. daily, aspirin 81 mg p.o. daily #. Hyperlipidemia Continue atorvastatin 40 mg p.o. at bedtime #. History of GERD Continue pantoprazole 40 mg IV daily #. Nausea and vomiting Continue ondansetron 4 mg IVP every 8 hours as needed #. History of hypothyroidism Continue levothyroxine 175 mg p.o. daily #. History of anxiety/depression Continue trazodone 50 mg p.o. at bedtime #. Muscle spasm Continue methocarbamol 750 mg p.o. every 6 hours #. Gall stones currently asymptomatic consider OP follow for surgical evaluation F: 0.9 normal saline at 20 mL/h E: Replete as required N: Renal diet A: Ambulate as tolerated DVT prophylaxis: Heparin 5000 units SQ TID The patient is admitted with an anticipated more than 2 midnight stay for evaluation of shortness of breath CODE STATUS: Full code Discussed with: Patient Anticipated discharge place: Home Past Medical History Past Medical History: Coronary Artery Disease (CAD), Chest Pain / Angina, Heart Failure, COPD, CVA/TIA, Diabetes Mellitus, Fibromyalgia, GERD/Reflux, Hyperlipidemia, Hypertension, Liver Disease, Myocardial Infarction ([place]), Osteoarthritis (OA), Renal Disease, Thyroid Disorder Additional Past Medical History / Comment(s): NEUROPATHY BILATERAL FEET, DDD NECK AND LOWER BACK, hiatal hernia, states no need for BP med anymore(gets orthostatic hypotension-has "medtronic heart loop monitor"), hx hepatitis as a kid, hx fractrured left wrist, hx stroke 03/03/22-problems with balance since. Last Myocardial Infarction Date:: 02/2024 History of Any Multi-Drug Resistant Organisms: MRSA Date of last positivie culture/infection: 2017 MDRO Source:: stomach Past Surgical History: Adenoidectomy, Back Surgery, Bladder Surgery, Hys terectomy, Orthopedic Surgery, Tonsillectomy, Tubal Ligation Additional Past Surgical History / Comment(s): Debridement right foot, PICC line placed and later removed, bladder suspension, exploratory laparotomy, right great toe amputation, pins right in foot, cataracts removed, left wrist ORIF, loop heart monitor placed 02/2022. Past Anesthesia/Blood Transfusion Reactions: No Reported Reaction, Motion Sickness Additional Past Anesthesia/Blood Transfusion Reaction / Comment(s): . Type of Cardiac Device: Loop Past Psychological History: Anxiety, Depression Smoking Status: Former smoker Past Alcohol Use History: Occasional Past Drug Use History: Marijuana, Methamphetamine - Past Family History Sister(s) Family Medical History: Coronary Artery Disease (CAD) Mother Family Medical History: Pulmonary Embolus Additional Family Medical History / Comment(s): . Father Additional Family Medical History / Comment(s): at 26yrs old--accident at work Medications and Allergies Home Medications Medication Instructions Recorded Confirmed Type Levothyroxine Sodium [Synthroid] 175 mcg PO DAILY 02/02/22 07/09/24 History Ondansetron [Zofran] 4 mg PO Q8H PRN 02/06/24 07/09/24 History traZODone HCL [Desyrel] 50 mg PO HS 02/09/24 07/09/24 History Clopidogrel [Plavix] 75 mg PO DAILY tab 03/18/24 07/09/24 Rx Ipratropium-Albuterol Nebulize 3 ml INHALATION RT-Q2H PRN each 03/18/24 07/09/24 Rx [Duoneb 0.5 mg-3 mg/3 ml Soln] Magnesium Oxide [Mag-Ox] 400 mg PO DAILY tab 03/18/24 07/09/24 Rx Pantoprazole [Protonix] 40 mg PO AC-BRKFST tab 03/18/24 07/09/24 Rx Tamsulosin [Flomax] 0.4 mg PO PC-SUPPER cap 03/18/24 07/09/24 Rx Acetaminophen Tab [Tylenol] 650 mg PO Q6H PRN 06/30/24 07/09/24 History Aspirin EC [Ecotrin Low Dose] 81 mg PO DAILY 06/30/24 07/09/24 History Atorvastatin [Lipitor] 40 mg PO HS 06/30/24 07/09/24 History Fluticasone/Umeclidin/Vilanter 1 puff INHALATION RT-DAILY 06/30/24 07/09/24 History [Shaileshlegary Ellipta 100-62.5-25] INSULIN ASPART (NovoLOG) [NovoLOG See Protocol SQ AC-TID 06/30/24 07/09/24 History (formulary)] Ipratropium [place] [Atrovent Hfa] 2 puff INHALATION RT-Q6H PRN 06/30/24 07/09/24 History Polyvinyl Alcohol/Povidone [Clear 1 drop BOTH EYES QID PRN 06/30/24 07/09/24 History Eyes Natural Tears Drop] bisacodyL [Dulcolax] 5 mg PO HS 06/30/24 07/09/24 History methocarbamoL [Robaxin-750] 750 mg PO Q6H PRN 06/30/24 07/09/24 History Insulin Glargine,Hum.rec.anlog 14 units SQ DAILY #0 07/05/24 07/09/24 Rx [Lantus Solostar Pen] Metoprolol Succinate (ER) [Toprol 25 mg PO DAILY #30 tab 07/05/24 07/09/24 Rx XL] Torsemide [Demadex] 40 mg PO DAILY #30 tab 07/05/24 07/09/24 Rx hydrALAZINE HCL [Apresoline] 25 mg PO TID #90 tab 07/05/24 07/09/24 Rx Allergies Allergy/AdvReac Type Severity Reaction Status Date / Time Sulfa (Sulfonamide Allergy Rash/Hives Verified 07/09/24 18:47 Antibiotics) Physical Exam Vitals: Vital Signs Temp Pulse Resp BP Pulse Ox 07/09/24 19:34 97.9 F 88 19 138/74 95 07/09/24 18:32 87 18 148/88 92 L 07/09/24 17:05 22 07/09/24 16:45 85 17 136/83 99 07/09/24 13:25 97.3 F L 85 16 127/79 98 Intake and Output 07/09/24 07/09/24 07/09/24 06:59 14:59 22:59 Other: Weight 76.657 kg Results CBC & Chem 7: 07/09/24 15:51 07/09/24 15:51 Labs: Abnormal Lab Results - Last 24 Hours (Table) 07/09/24 07/09/24 Range/Units 15:51 15:51 RBC 3.70 L (3.80-5.40) m/uL Lymphocytes # 0.7 L (1.0-4.8) k/uL Sodium 129 L (137-145) mmol/L Potassium 5.7 H (3.5-5.1) mmol/L Chloride 96 L (98-107) mmol/L BUN 34 H (7-17) mg/dL Creatinine 2.09 H (0.52-1.04) mg/dL Glucose 280 H (74-99) mg/dL Alkaline Phosphatase 129 H (38-126) U/L Albumin 3.3 L (3.5-5.0) g/dL Assessment and Plan Assessment: I have seen and evaluated the patient today. I Discussed the case with the resident and agree with the resident's findings I edited the assessment and plan as necessary as documented in the resident's note.
[2024-07-10] MEDS: hydrALAZINE HCL 25 MG TAB PO SCH (00:30)
[2024-07-10] MEDS: HEPARIN SODIUM,PORCINE 5,000 UNIT/ML 1 ML VIAL SQ SCH (00:43)
[2024-07-10] MEDS: MORPHINE SULFATE 4 MG/ML SYRINGE IV PRN (00:43)
--- NOTE | 2024-07-10 01:09 | P.CNPUL ---
History of Present Illness Consult date: 07/10/24 Requesting physician: José Miguel Faria Reason for consult: pneumonia Chief complaint: Worsening shortness of breath; missed hemodialysis History of present illness: Patient is a 59-year-old white female with past medical history significant for coronary artery disease status post CABG in Feb, 2024. She also has history of end-stage renal disease (receives hemodialysis on a Monday, Monday, Monday schedule), severe ischemic cardiomyopathy, COPD, diabetes mellitus, hypertension, hyperlipidemia, hypothyroidism, fibromyalgia. She is a former tobacco smoker, quitting in December,. Of note, patient recently treated for COVID traction at [facility] approximately 1 month ago, she reportedly ended up being transferred to [facility]. She had a pleural effusion and underwent previous thoracentesis on the right side during her hospitalization. Of note, patient had a recent hospitalization at our facility on 07/01/2024 with similar presentation. At that time, she had missed hemodialysis, presented with fluid overload. She was discharged home on 07/05/2024. She returns to the emergency department yesterday afternoon with worsening shortness of breath over the last couple days. She again has missed hemodialysis on Monday. Her last treatment was last Monday. She states that she was too short of breath and weak to make it to her appointments. She has b een using a friends supplemental oxygen. States that she does not have oxygen tanks of her own. Previously did not qualify for home O2. Patient appears to be in a fluid positive status. She has pitting lower extremity edema. Chest x- ray demonstrates similar fluid overload state. There is cardiomegaly, bilateral pleural effusions, and mild pulmonary vascular congestion. No obvious focal consolidations or pneumonia. She states that she does have a lingering cough, that has been persistent since her COVID infection. Not particularly productive. Denies any fevers or chills. Denies any chest pain. Denies any hemoptysis. Occasionally wheezing and associated shortness of breath reported, but not currently. Does have history of COPD. CBC: WBC count 4.6, hemoglobin 11.4, hematocrit 35.6, platelets 290. CMP: Sodium 129, potassium 5.7, chloride 96, serum bicarb 24, BUN 34, creatinine 2.09, glucose 280. Troponin less than 0.012. NT proBNP significantly elevated at 24,200. EKG: Normal sinus rhythm, rate 84 bpm, with LBBB pattern, similar to prior EKG, no obvious acute ischemic changes. She is currently receiving Lasix 40 mg twice daily. She is not anuric. Voids approximately 2 times per day. Plan is for inpatient hemodialysis. Currently resting comfortably on 3 L/min nasal cannula. SpO2 is 95%. No conversational dyspnea or accessory muscle use. She wants to see if she qualifies for home oxygen again. Review of Systems Constitutional: Reports fatigue, Reports poor appetite, Reports weight gain, Denies chills, Denies fever, Denies night sweats Ears, nose, mouth and throat: Denies dysphagia, Denies headache, Denies nasal congestion, Denies nasal discharge, Denies post-nasal drip, Denies sinus pressure, Denies sore throat Cardiovascular: Reports decreased exercise tolerance, Reports dyspnea on exertion, Reports leg edema, Reports orthopnea, Denies chest pain, Denies palpitations, Denies paroxysmal nocturnal dyspnea Respiratory: Reports cough, Reports dyspnea, Reports wheezing, Denies congestion, Denies excessive sputum, Denies pain on inspiration Gastrointestinal: Reports nausea, Denies abdominal pain, Denies change in bowel habits, Denies constipation, Denies diarrhea, Denies vomiting Genitourinary: Denies dysuria, Denies hematuria, Denies incomplete emptying Musculoskeletal: Denies arm numbness/tingling, Denies leg numbness/tingling, Denies limitation of motion Integumentary: Reports wounds, Denies rash Neurological: Denies confusion, Denies head injury, Denies headaches, Denies seizures, Denies syncope, Denies visual changes Psychiatric: Denies anxiety, Denies depression Past Medical History Past Medical History: Coronary Artery Disease (CAD), Chest Pain / Angina, Heart Failure, COPD, CVA/TIA, Diabetes Mellitus, Fibromyalgia, GERD/Reflux, Hyperlipidemia, Hypertension, Liver Disease, Myocardial Infarction ([place]), Osteoarthritis (OA), Renal Disease, Thyroid Disorder Additional Past Medical History / Comment(s): NEUROPATHY BILATERAL FEET, DDD NECK AND LOWER BACK, hiatal hernia, states no need for BP med anymore(gets orthostatic hypotension-has "medtronic heart loop monitor"), hx hepatitis as a kid, hx fractrured left wrist, hx stroke 03/03/22-problems with balance since. Last Myocardial Infarction Date:: 02/2024 History of Any Multi-Drug Resistant Organisms: MRSA Date of last positivie culture/infection: 2017 MDRO Source:: stomach Past Surgical History: Adenoidectomy, Back Surgery, Bladder Surgery, Hysterectomy, Orthopedic Surgery, Tonsillectomy, Tubal Ligation Additional Past Surgical History / Comment(s): Debridement right foot, PICC line placed and later removed, bladder suspension, exploratory laparotomy, right great toe amputation, pins right in foot, cataracts removed, left wrist ORIF, loop heart monitor placed 02/2022. Past Anesthesia/Blood Transfusion Reactions: No Reported Reaction, Motion Sickness Additional Past Anesthesia/Blood Transfusion Reaction / Comment(s): . Type of Cardiac Device: Loop Past Psychological History: Anxiety, Depression Smoking Status: Former smoker Past Alcohol Use History: Occasional Past Drug Use History: Marijuana, Methamphetamine - Past Family History Sister(s) Family Medical History: Coronary Artery Disease (CAD) Mother Family Medical History: Pulmonary Embolus Additional Family Medical History / Comment(s): . Father Additional Family Medical History / Comment(s): at 26yrs old--accident at work Medications and Allergies Home Medications Medication Instructions Recorded Confirmed Type Levothyroxine Sodium [Synthroid] 175 mcg PO DAILY 02/02/22 07/09/24 History Ondansetron [Zofran] 4 mg PO Q8H PRN 02/06/24 07/09/24 History traZODone HCL [Desyrel] 50 mg PO HS 02/09/24 07/09/24 History Clopidogrel [Plavix] 75 mg PO DAILY tab 03/18/24 07/09/24 Rx Ipratropium-Albuterol Nebulize 3 ml INHALATION RT-Q2H PRN each 03/18/24 07/09/24 Rx [Duoneb 0.5 mg-3 mg/3 ml Soln] Magnesium Oxide [Mag-Ox] 400 mg PO DAILY tab 03/18/24 07/09/24 Rx Pantoprazole [Protonix] 40 mg PO AC-BRKFST tab 03/18/24 07/09/24 Rx Tamsulosin [Flomax] 0.4 mg PO PC-SUPPER cap 03/18/24 07/09/24 Rx Acetaminophen Tab [Tylenol] 650 mg PO Q6H PRN 06/30/24 07/09/24 History Aspirin EC [Ecotrin Low Dose] 81 mg PO DAILY 06/30/24 07/09/24 History Atorvastatin [Lipitor] 40 mg PO HS 06/30/24 07/09/24 History Fluticasone/Umeclidin/Vilanter 1 puff INHALATION RT-DAILY 06/30/24 07/09/24 History [Trelegy Ellipta 100-62.5-25] INSULIN ASPART (NovoLOG) [NovoLOG See Protocol SQ AC-TID 06/30/24 07/09/24 History (formulary)] Ipratropium [place] [Atrovent Hfa] 2 puff INHALATION RT-Q6H PRN 06/30/24 07/09/24 History Polyvinyl Alcohol/Povidone [Clear 1 drop BOTH EYES QID PRN 06/30/24 07/09/24 History Eyes Natural Tears Drop] bisacodyL [Dulcolax] 5 mg PO HS 06/30/24 07/09/24 History methocarbamoL [Robaxin-750] 750 mg PO Q6H PRN 06/30/24 07/09/24 History Insulin Glargine,Hum.rec.anlog 14 units SQ DAILY #0 07/05/24 07/09/24 Rx [Lantus Solostar Pen] Metoprolol Succinate (ER) [Toprol 25 mg PO DAILY #30 tab 07/05/24 07/09/24 Rx XL] Torsemide [Demadex] 40 mg PO DAILY #30 tab 07/05/24 07/09/24 Rx hydrALAZINE HCL [Apresoline] 25 mg PO TID #90 tab 07/05/24 07/09/24 Rx Allergies Allergy/AdvReac Type Severity Reaction Status Date / Time Sulfa (Sulfonamide Allergy Rash/Hives Verified 07/09/24 18:47 Antibiotics) Physical Exam Vitals: Vital Signs Temp Pulse Pulse Resp BP BP Pulse Ox 07/10/24 00:22 97.9 F 87 18 136/82 97 07/09/24 21:25 86 19 138/82 95 07/09/24 21:15 85 20 138/82 95 07/09/24 20:33 88 07/09/24 20:27 84 07/09/24 19:34 97.9 F 88 19 138/74 95 07/09/24 18:32 87 18 148/88 92 L 07/09/24 17:05 22 07/09/24 16:45 85 17 136/83 99 07/09/24 13:25 97.3 F L 85 16 127/79 98 Intake and Output 07/09/24 07/09/24 07/10/24 14:59 22:59 06:59 Other: Weight 76.657 kg 76.657 kg GENERAL EXAM: Alert, 59-year-old white female, comfortable in no apparent dis tress. HEAD: Normocephalic and atraumatic EYES: Normal reaction of pupils, equal size. NOSE: Clear with pink turbinates. THROAT: No erythema or exudates. NECK: No masses, no JVD. CHEST: No chest wall deformity. Right chest tunneled HD cath LUNGS: Equal air entry with diminished bibasilar lung sounds. No wheezes, rhonchi, crackles. On 3 L/min nasal cannula. SpO2 95%. No conversational dyspnea or accessory muscle use while at rest CVS: S1 and S2 normal with no audible murmur, regular rhythm. No extra heart sounds ABDOMEN: No hepatosplenomegaly, active bowel sounds, no guarding or rigidity. SPINE: No scoliosis or deformity SKIN: No rashes. Left lower extremity shallow ulceration with clear discharge. CENTRAL NERVOUS SYSTEM: No focal deficits, tone is normal in all 4 extremities. EXTREMITIES: Bilateral lower extremity 3+ pitting edema. Peripheral pulses are intact. Results - Laboratory Findings CBC and BMP: 07/09/24 15:51 07/09/24 15:51 PT/INR, D-dimer PT 10.3 sec (10.0-12.5) 07/09/24 15:51 INR 0.9 (<1.2) 07/09/24 15:51 Abnormal lab findings: Abnormal Labs 07/09/24 07/09/24 15:51 15:51 RBC 3.70 L Lymphocytes # 0.7 L Sodium 129 L Potassium 5.7 H Chloride 96 L BUN 34 H Creatinine 2.09 H Glucose 280 H Alkaline Phosphatase 129 H Albumin 3.3 L - Diagnostic Findings Chest x-ray: image reviewed Assessment and Plan Assessment: Acute hypoxemic respiratory failure, multifactorial, secondary to missed hemo dialysis, fluid overload, and acute systolic CHF exacerbation. Hypervolemic hyponatremia Hyperkalemia, potassium 5.7 Bilateral pleural effusions, with history of right-sided thoracentesis at [facility] facility History of multivessel coronary artery disease status post four-vessel coronary artery bypass grafting on 02/26/2024 History of a non-ST elevation [place] History of ischemic cardiomyopathy, with an ejection fraction estimated at 20 to 25%, as well as, moderate to severe mitral valve regurgitation History of COVID-19 infection, treated outpatient facility, approximately 1 month ago End-stage renal disease, normally maintained on hemodialysis, on a MWF schedule Chronic obstructive pulmonary disease, stable Diabetes mellitus type 1 History of hyperlipidemia History of hypertension History of CVA/TIA History of hypothyroidism History of fibromyalgia History of GERD Former tobacco smoker, quit smoking in December 2023 Plan: Patient's medications, labs, chest x-ray reviewed No clear-cut evidence of pneumonia. Evidence of fluid overload, small bilateral pleural effusions, pulmonary vascular congestion. Continue supplemental oxygen to maintain oxygen saturation of 92% or greater Plan is to resume hemodialysis while inpatient Nephrology consulted for dialysis management Currently receiving Lasix 40 mg twice daily. Reportedly not anuric Patient educated on the importance of hemodialysis compliance. Patient can be evaluated again on discharge for home O2, however, previously did not qualify COPD is stable on my evaluation, continue maintenance medications including Symbicort inhaler, bronchodilators [id number], and as needed. We will continue to follow I have personally seen and examined the patient, performed the documentation and the assessment and plan as written. Number of minutes spent on the visit:20 Time with Patient: Greater than 30
[2024-07-10] MEDS: LEVOTHYROXINE 88 MCG TAB PO SCH (06:49)
[2024-07-10] MEDS: SYMBICORT 80-4.5 MCG INHALER INHALATION SCH (07:43)
[2024-07-10 08:51] LABS: Basophils # (A) 0.03 X 10*3/uL (0.00-0.10); Basophils % (A) 0.7 %; Eosinophils # (A) 0.21 X 10*3/uL (0.04-0.35); Eosinophils % (A) 4.6 %; HCT 32.9 % (37.2-46.3); HGB 10.3 g/dL (12.0-15.0); Lymphocytes # (A) 0.92 X 10*3/uL (0.90-5.00); Lymphocytes % (A) 20.2 %; MCH 29.9 pg (27.0-32.0); MCHC 31.3 g/dL (32.0-37.0); MCV 95.4 FL (80.0-97.0); Mean Platelet Volume 10.3 FL (9.5-12.2); Monocytes # (A) 0.44 X 10*3/uL (0.20-1.00); Monocytes % (A) 9.6 %; NRBC Per 100 WBC 0 X 10*3/uL (0.00-0.01); Neutrophils # (A) 2.94 X 10*3/uL (1.80-7.70); Neutrophils % (A) 64.5 %; Platelet Count 307 X 10*3/uL (140-440); RBC 3.45 X 10*6/uL (4.10-5.20); RDW 15.9 % (11.5-14.5); WBC 4.56 X 10*3/uL (4.50-10.00)
[2024-07-10 08:52] LABS: ALT 13 U/L (8-44); AST 14 U/L (13-35); Albumin/Globulin Ratio 1.15 Ratio (1.60-3.17); Alkaline Phosphatase 144 U/L (41-126); BUN/Creat Ratio 15.45 Ratio (12.00-20.00); Calcium 8.1 mg/dL (8.7-10.3); Carbon Dioxide 24.5 mmol/L (21.6-31.8); Chloride 99 mmol/L (96-109); Globulin 2.6 g/dL (1.6-3.3); Glucose 208 mg/dL (70-110); Magnesium 1.9 mg/dL (1.5-2.4); Phosphorus 4.6 mg/dL (2.4-5.1); Potassium 4.9 mmol/L (3.5-5.5); Sodium 133 mmol/L (135-145); Total Bilirubin 0.2 mg/dL (0.3-1.2); Total Protein 5.6 g/dL (6.2-8.2)
[2024-07-10] MEDS ORDERED: FUROSEMIDE 10 MG/ML 4 ML VIAL IV SCH (09:00)
[2024-07-10] MEDS: METOPROLOL SUCCINATE (ER) 25 MG TAB.ER.24H PO SCH (09:02)
[2024-07-10] MEDS: PANTOPRAZOLE 40 MG/10 ML VIAL IV SCH (09:02)
[2024-07-10] MEDS: CLOPIDOGREL 75 MG TAB PO SCH (09:02)
[2024-07-10] MEDS: FUROSEMIDE 10 MG/ML 4 ML VIAL IV SCH (09:02)
[2024-07-10] MEDS: ASPIRIN 81 MG PO SCH (09:02)
[2024-07-10] MEDS: INSULIN ASPART (NovoLOG) 100 UNIT/ML VIAL SQ SCH (09:03)
--- NOTE | 2024-07-10 13:33 | P.NPCON ---
History of Present Illness - Reason for Consult end stage renal disease - History of Present Illness Patient is a 59-year-old female with end-stage renal disease, recently started on hemodialysis after acute kidney injury. Patient is maintained on Monday schedule. She is admitted to the hospital with complaints of shortness of breath. Patient missed her dialysis on Monday and complained of worsening shortness of breath. No history of fever or chills. Previous history of COVID-19 pneumonia. Potassium was 5.7. Patient reports good urine output. No history of nausea vomiting or abdominal pain. Chest x-ray shows pulmonary vascular congestion with pleural effusions. Past Medical History Past Medical History: Coronary Artery Disease (CAD), Chest Pain / Angina, Heart Failure, COPD, CVA/TIA, Diabetes Mellitus, Fibromyalgia, GERD/Reflux, Hy perlipidemia, Hypertension, Liver Disease, Myocardial Infarction ([place]), Osteoarthritis (OA), Renal Disease, Thyroid Disorder Additional Past Medical History / Comment(s): NEUROPATHY BILATERAL FEET, DDD NECK AND LOWER BACK, hiatal hernia, states no need for BP med anymore(gets orthostatic hypotension-has "medtronic heart loop monitor"), hx hepatitis as a kid, hx fractrured left wrist, hx stroke 03/03/22-problems with balance since. Last Myocardial Infarction Date:: 02/2024 History of Any Multi-Drug Resistant Organisms: MRSA Date of last positivie culture/infection: 2017 MDRO Source:: stomach Past Surgical History: Adenoidectomy, Back Surgery, Bladder Surgery, Hysterectomy, Orthopedic Surgery, Tonsillectomy, Tubal Ligation Additional Past Surgical History / Comment(s): Debridement right foot, PICC line placed and later removed, bladder suspension, exploratory laparotomy, right great toe amputation, pins right in foot, cataracts removed, left wrist ORIF, loop heart monitor placed 02/2022. Past Anesthesia/Blood Transfusion Reactions: No Reported Reaction, Motion Sickness Additional Past Anesthesia/Blood Transfusion Reaction / Comment(s): . Type of Cardiac Device: Loop Past Psychological History: Anxiety, Depression Smoking Status: Former smoker Past Alcohol Use History: Occasional Past Drug Use History: Marijuana, Methamphetamine - Past Family History Sister(s) Family Medical History: Coronary Artery Disease (CAD) Mother Family Medical History: Pulmonary Embolus Additional Family Medical History / Comment(s): . Father Additional Family Medical History / Comment(s): at 26yrs old--accident at work Medications and Allergies Home Medications Medication Instructions Recorded Confirmed Type Levothyroxine Sodium [Synthroid] 175 mcg PO DAILY 02/02/22 07/09/24 History Ondansetron [Zofran] 4 mg PO Q8H PRN 02/06/24 07/09/24 History traZODone HCL [Desyrel] 50 mg PO HS 02/09/24 07/09/24 History Clopidogrel [Plavix] 75 mg PO DAILY tab 03/18/24 07/09/24 Rx Ipratropium-Albuterol Nebulize 3 ml INHALATION RT-Q2H PRN each 03/18/24 07/09/24 Rx [Duoneb 0.5 mg-3 mg/3 ml Soln] Magnesium Oxide [Mag-Ox] 400 mg PO DAILY tab 03/18/24 07/09/24 Rx Pantoprazole [Protonix] 40 mg PO AC-BRKFST tab 03/18/24 07/09/24 Rx Tamsulosin [Flomax] 0.4 mg PO PC-SUPPER cap 03/18/24 07/09/24 Rx Acetaminophen Tab [Tylenol] 650 mg PO Q6H PRN 06/30/24 07/09/24 History Aspirin EC [Ecotrin Low Dose] 81 mg PO DAILY 06/30/24 07/09/24 History Atorvastatin [Lipitor] 40 mg PO HS 06/30/24 07/09/24 History Fluticasone/Umeclidin/Vilanter 1 puff INHALATION RT-DAILY 06/30/24 07/09/24 History [Trelegary Ellipta 100-62.5-25] INSULIN ASPART (NovoLOG) [NovoLOG See Protocol SQ AC-TID 06/30/24 07/09/24 History (formulary)] Ipratropium [place] [Atrovent Hfa] 2 puff INHALATION RT-Q6H PRN 06/30/24 07/09/24 History Polyvinyl Alcohol/Povidone [Clear 1 drop BOTH EYES QID PRN 06/30/24 07/09/24 History Eyes Natural Tears Drop] bisacodyL [Dulcolax] 5 mg PO HS 06/30/24 07/09/24 History methocarbamoL [Robaxin-750] 750 mg PO Q6H PRN 06/30/24 07/09/24 History Insulin Glargine,Hum.rec.anlog 14 units SQ DAILY #0 07/05/24 07/09/24 Rx [Lantus Solostar Pen] Metoprolol Succinate (ER) [Toprol 25 mg PO DAILY #30 tab 07/05/24 07/09/24 Rx XL] Torsemide [Demadex] 40 mg PO DAILY #30 tab 07/05/24 07/09/24 Rx hydrALAZINE HCL [Apresoline] 25 mg PO TID #90 tab 07/05/24 07/09/24 Rx Allergies Allergy/AdvReac Type Severity Reaction Status Date / Time Sulfa (Sulfonamide Allergy Rash/Hives Verified 07/09/24 18:47 Antibiotics) Physical Exam Vitals: Vital Signs Temp Pulse Pulse Resp BP BP BP 07/10/24 11:47 83 07/10/24 11:37 80 07/10/24 08:02 84 07/10/24 07:45 86 07/10/24 07:29 98.6 F 86 18 132/83 07/10/24 06:41 07/10/24 02:25 14 07/10/24 00:22 97.9 F 87 18 136/82 07/09/24 21:25 86 19 138/82 07/09/24 21:15 85 20 138/82 07/09/24 20:33 88 07/09/24 20:27 84 07/09/24 19:34 97.9 F 88 19 138/74 07/09/24 18:32 87 18 148/88 07/09/24 17:05 22 07/09/24 16:45 85 17 136/83 07/09/24 13:25 97.3 F L 85 16 127/79 Pulse Ox 07/10/24 11:47 07/10/24 11:37 07/10/24 08:02 07/10/24 07:45 96 07/10/24 07:29 96 07/10/24 06:41 96 07/10/24 02:25 07/10/24 00:22 97 07/09/24 21:25 95 07/09/24 21:15 95 07/09/24 20:33 07/09/24 20:27 07/09/24 19:34 95 07/09/24 18:32 92 L 07/09/24 17:05 07/09/24 16:45 99 07/09/24 13:25 98 Intake and Output 07/09/24 07/10/24 07/10/24 22:59 06:59 14:59 Other: # Voids 1 1 Weight 76.657 kg Patient is awake, comfortable, no acute distress. Examination of the heart S1 and S2 Examination of the lungs decreased breath sounds at the bases Abdomen is soft nontender Examination of lower extremity shows edema 2-3+ bilaterally worse on the left leg. Left lower leg wound is dressed Results - Lab Results Most recent lab results Calcium 8.1 mg/dL (8.7-10.3) L 07/10/24 03:08 Phosphorus 4.6 mg/dL (2.4-5.1) 07/10/24 03:08 Magnesium 1.9 mg/dL (1.5-2.4) 07/10/24 03:08 07/10/24 03:08 07/10/24 03:08 Assessment and Plan Assessment: 1. End-stage renal disease maintained on hemodialysis on Monday schedule. Patient was started on dialysis in March of this year. She remains dialysis dependent mostly due to volume overload. 2. Volume overload 3. Hyperkalemia associated with end-stage renal disease and missing dialysis 4. History of coronary artery disease 5. Acute hypoxic respiratory failure secondary to volume overload and CHF 6. Chronic CHF with decreased ejection fraction, ejection fraction 15 to 20% on echocardiogram in February 2024 Plan: Hemodialysis today and repeat in a.m. Increase IV Lasix Accurate I's and O's Discussed importance of not missing hemodialysis treatments as outpatient. Thank you for the consultation. We will continue to follow the patient with you during her hospitalization.
--- NOTE | 2024-07-10 14:05 | P.PN ---
Subjective Progress Note Date: 07/10/24 Hospital Course: 59-year-old female with history of HFrEF, EF around 20%, ESRD on hemodialysis, COPD, type 2 diabetes, CAD status post CABG, dyslipidemia, GERD, hypothyroidism, anxiety/depression presenting with acute hypoxic respiratory failure secondary to hypervolemia, CHF exacerbation and ESRD requiring hemodialysis. ED workup revealed proBNP 08312, troponin 1 <0.012 and chest x-ray that shows pulmonary vascular congestion with small bilateral pleural effusion similar to prior on 07/05/2024. In the ED she was treated with Dilaudid, DuoNebs and 0.9 normal saline. Vitals: T97.3F, P 85 bpm, RR 16, BP 127/79, O2 sat 98% on room air. Coag: PT 10.3, INR 0.9, APTT 25.3. EKG: Sinus rhythm, rate of 84 bpm, QTc 486 ms, LVH, poor R wave progression. Patient admitted with consultation for pu lmonology, and nephrology. Patient currently on IV Lasix. Subjective: The patient seen and examined at bedside. No acute events overnight. Complaining of some shortness of breath, denies any coughing. Pertinent positives and negatives as discussed above, a complete review of systems was performed and all other systems are negative. Vitals Signs Reviewed. General: Nontoxic, no distress, appears at stated age Derm: Warm, dry Head: Atraumatic, normocephalic, symmetric Eyes: EOMI, no lid lag, anicteric sclera Mouth: No lip lesion, mucus membranes moist Cardiovascular: S1S2 reg, no murmur Lungs: Bibasilar rales, no accessory muscle use, supplemental oxygen Abdominal: Soft, nontender to palpation, no guarding, no appreciable organomegaly Ext: No gross muscle atrophy, 2+ pitting edema, no contractures Neuro: CN II-XI grossly intact, no focal neuro deficits Psych: Alert, oriented, appropriate affect Data Reviewed Today: Pertinent Labs: Hemoglobin 10.3, sodium 133, creatinine 2.2, potassium 4.9, magnesium 1.9, ALP 144 Imaging: No new imaging Assessment and Plan: Active: Acute hypoxic respiratory failure ESRD on hemodialysis Hypervolemic hyponatremia, resolving Acute CHF systolic exacerbation Ischemic cardiomyopathy History of CAD status post CABG -Continue IV Lasix 40 every 12 hours, monitor electrolytes and renal function -Nephrology note reviewed, pending hemodialysis today and tomorrow a.m. -Intake and output, daily weight -Continue to wean oxygen -Pulmonology note reviewed, less likely to be COPD exacerbation -Continue aspirin 81 mg, atorvastatin 40 mg, Plavix 75 mg -Continue metoprolol 25 daily -Consider SGLT2 inhibitor and ACEi/ARB Hypertension -Continue hydralazine 25 3 times daily Type 2 diabetes, insulin-dependent -Continue Lantus 14 units daily -Sliding scale insulin ACH S, monitor for hypoglycemia Hypothyroidism -Synthroid 176 mcg daily DVT ppx: Subcu heparin Code status: FC Anticipated discharge place: Pending clinical course Anticipated discharge time: Pending clinical course Objective - Vital Signs Vital signs: Vital Signs Temp 98.6 F 07/10/24 07:29 Pulse 83 07/10/24 11:47 Resp 18 07/10/24 07:29 BP 132/83 07/10/24 07:29 Pulse Ox 96 07/10/24 07:45 FiO2 Intake & Output 07/09/24 07/10/24 07/10/24 18:59 06:59 18:59 Weight 76.657 kg 76.657 kg Other: # Voids 1 1 - Labs CBC & Chem 7: 07/10/24 03:08 07/10/24 03:08 Labs: Abnormal Lab Results - Last 24 Hours (Table) 07/09/24 07/09/24 07/10/24 Range/Units 15:51 15:51 03:08 RBC 3.70 L 3.45 L (3.80-5.40) m/uL Hgb 10.3 L (12.0-15.0) g/dL Hct 32.9 L (37.2-46.3) % MCHC 31.3 L (32.0-37.0) g/dL RDW 15.9 H (11.5-14.5) % Lymphocytes # 0.7 L (1.0-4.8) k/uL Sodium 129 L (137-145) mmol/L Potassium 5.7 H (3.5-5.1) mmol/L Chloride 96 L (98-107) mmol/L BUN 34 H (7-17) mg/dL Creatinine 2.09 H (0.52-1.04) mg/dL Est GFR (CKD-EPI) (>=60) Glucose 280 H (74-99) mg/dL Calcium (8.7-10.3) mg/dL Total Bilirubin (0.3-1.2) mg/dL Alkaline Phosphatase 129 H (38-126) U/L Total Protein (6.2-8.2) g/dL Albumin 3.3 L (3.5-5.0) g/dL Albumin/Globulin Ratio (1.60-3.17) Ratio 07/10/24 Range/Units 03:08 RBC (3.80-5.40) m/uL Hgb (12.0-15.0) g/dL Hct (37.2-46.3) % MCHC (32.0-37.0) g/dL RDW (11.5-14.5) % Lymphocytes # (1.0-4.8) k/uL Sodium 133 L (137-145) mmol/L Potassium (3.5-5.1) mmol/L Chloride (98-107) mmol/L BUN 34.0 H (7-17) mg/dL Creatinine 2.2 H (0.52-1.04) mg/dL Est GFR (CKD-EPI) 25 L (>=60) Glucose 208 H (74-99) mg/dL Calcium 8.1 L (8.7-10.3) mg/dL Total Bilirubin 0.2 L (0.3-1.2) mg/dL Alkaline Phosphatase 144 H (38-126) U/L Total Protein 5.6 L (6.2-8.2) g/dL Albumin 3.0 L (3.5-5.0) g/dL Albumin/Globulin Ratio 1.15 L (1.60-3.17) Ratio
[2024-07-10] MEDS: HEPARIN SODIUM 1,000 UN/ML (10ML VL) MISCELLANE ONE (15:05)
[2024-07-10] MEDS: ALTEPLASE 2 MG VIAL (CATHFLO) MISCELLANE ONE (17:59)
[2024-07-10] MEDS: ATORVASTATIN 40 MG TAB PO SCH (20:54)
[2024-07-10] MEDS: traZODone HCL 50 MG TAB PO SCH (20:54)
[2024-07-10] MEDS: TAMSULOSIN 0.4 MG CAP.ER.24H PO SCH (21:04)
[2024-07-10] MEDS: bisacodyL 5 MG TABLET.DR PO SCH (21:19)
[2024-07-11] MEDS ORDERED: INSULIN DETEMIR (LEVEMIR) 100 UNIT/ML SYR SQ SCH (07:00)
[2024-07-11 08:24] LABS: Basophils # (A) 0.03 X 10*3/uL (0.00-0.10); Eosinophils # (A) 0.15 X 10*3/uL (0.04-0.35); Eosinophils % (A) 4.9 %; HCT 27.5 % (37.2-46.3); HGB 8.8 g/dL (12.0-15.0); Lymphocytes # (A) 0.86 X 10*3/uL (0.90-5.00); Lymphocytes % (A) 28.2 %; MCH 30.1 pg (27.0-32.0); MCV 94.2 FL (80.0-97.0); Mean Platelet Volume 10.2 FL (9.5-12.2); Monocytes # (A) 0.37 X 10*3/uL (0.20-1.00); Monocytes % (A) 12.1 %; NRBC Per 100 WBC 0 X 10*3/uL (0.00-0.01); Neutrophils # (A) 1.63 X 10*3/uL (1.80-7.70); Neutrophils % (A) 53.5 %; Platelet Count 235 X 10*3/uL (140-440); RBC 2.92 X 10*6/uL (4.10-5.20); RDW 15.9 % (11.5-14.5); WBC 3.05 X 10*3/uL (4.50-10.00)
[2024-07-11 08:41] LABS: ALT 9 U/L (8-44); AST 12 U/L (13-35); Albumin 2.6 g/dL (3.8-4.9); Albumin/Globulin Ratio 1.24 Ratio (1.60-3.17); Alkaline Phosphatase 117 U/L (41-126); BUN/Creat Ratio 14.11 Ratio (12.00-20.00); Blood Urea Nitrogen 25.4 mg/dL (9.0-27.0); Calcium 7.5 mg/dL (8.7-10.3); Carbon Dioxide 26.2 mmol/L (21.6-31.8); Chloride 100 mmol/L (96-109); Globulin 2.1 g/dL (1.6-3.3); Glucose 145 mg/dL (70-110); Magnesium 1.7 mg/dL (1.5-2.4); Potassium 4.3 mmol/L (3.5-5.5); Sodium 133 mmol/L (135-145); Total Bilirubin 0.3 mg/dL (0.3-1.2); Total Protein 4.7 g/dL (6.2-8.2)
[2024-07-11] MEDS: MIDODRINE 5 MG TAB PO SCH (10:41)
[2024-07-11] MEDS ORDERED: MIDODRINE 5 MG TAB PO SCH (10:45)
--- NOTE | 2024-07-11 11:35 | P.PN ---
Subjective patient is seen for follow-up for end-stage renal disease. Tolerating treatment well. No significant complaints. Patient needed TPA yesterday. Her catheter is working better today. Objective - Vital Signs Vital signs: Vital Signs Temp 97.7 F 07/11/24 07:35 Pulse 85 07/11/24 09:22 Resp 18 07/11/24 07:35 BP 112/61 07/11/24 07:35 Pulse Ox 97 07/11/24 09:15 FiO2 Intake & Output 07/10/24 07/11/24 07/11/24 18:59 06:59 18:59 Intake Total 400 Output Total 6600 Balance -6200 Weight 75 kg Intake: Hemodialysis 400 Output: Hemodialysis 3500 Hemodialysis Net Amount 3100 Other: # Voids 1 - Exam Patient is awake, comfortable, no acute distress. Examination of lower extremity shows edema 2-3+ bilaterally worse on the left leg. Left lower leg wound is dressed - Labs CBC & Chem 7: 07/11/24 04:50 07/11/24 04:50 Labs: Abnormal Lab Results - Last 24 Hours (Table) 07/11/24 07/11/24 Range/Units 04:50 04:50 WBC 3.05 L (4.50-10.00) X 10*3/uL RBC 2.92 L (4.10-5.20) X 10*6/uL Hgb 8.8 L (12.0-15.0) g/dL Hct 27.5 L (37.2-46.3) % RDW 15.9 H (11.5-14.5) % Neutrophils # 1.63 L (1.80-7.70) X 10*3/uL Lymphocytes # 0.86 L (0.90-5.00) X 10*3/uL Sodium 133 L (135-145) mmol/L Creatinine 1.8 H (0.6-1.5) mg/dL Est GFR (CKD-EPI) 32 L (>=60) Glucose 145 H (70-110) mg/dL Calcium 7.5 L (8.7-10.3) mg/dL AST 12 L (13-35) U/L Total Protein 4.7 L (6.2-8.2) g/dL Albumin 2.6 L (3.8-4.9) g/dL Albumin/Globulin Ratio 1.24 L (1.60-3.17) Ratio Assessment and Plan Assessment: 1. End-stage renal disease maintained on hemodialysis on Monday schedule. Patient was started on dialysis in March of this year. She remains dialysis dependent mostly due to volume overload. 2. Volume overload 3. Hyperkalemia associated with end-stage renal disease and missing dialysis 4. History of coronary artery disease 5. Acute hypoxic respiratory failure secondary to volume overload and CHF 6. Chronic CHF with decreased ejection fraction, ejection fraction 15 to 20% on echocardiogram in February 2024 Plan: Hemodialysis today and repeat in a.m. Increased IV Lasix Accurate I's and O's
--- NOTE | 2024-07-11 12:44 | P.PN ---
Subjective Progress Note Date: 07/11/24 Hospital Course: 59-year-old female with history of HFrEF, EF around 20%, ESRD on hemodialysis, COPD, type 2 diabetes, CAD status post CABG, dyslipidemia, GERD, hypothyroidism, anxiety/depression presenting with acute hypoxic respiratory failure secondary to hypervolemia, CHF exacerbation and ESRD requiring hemodialysis. ED workup revealed proBNP 01568, troponin 1 <0.012 and chest x-ray that shows pulmonary vascular congestion with small bilateral pleural effusion similar to prior on 07/05/2024. In the ED she was treated with Dilaudid, DuoNebs and 0.9 normal saline. Vitals: T97.3F, P 85 bpm, RR 16, BP 127/79, O2 sat 98% on room air. Coag: PT 10.3, INR 0.9, APTT 25.3. EKG: Sinus rhythm, rate of 84 bpm, QTc 486 ms, LVH, poor R wave progression. Patient admitted with consultation for pu lmonology, and nephrology. Patient currently on IV Lasix. Now getting dialysis, symptoms are improving Subjective: The patient seen and examined at bedside. No acute events overnight. Claims th at shortness of breath is improving with hemodialysis Pertinent positives and negatives as discussed above, a complete review of systems was performed and all other systems are negative. Vitals Signs Reviewed. General: Nontoxic, no distress, appears at stated age Derm: Warm, dry Head: Atraumatic, normocephalic, symmetric Eyes: EOMI, no lid lag, anicteric sclera Mouth: No lip lesion, mucus membranes moist Cardiovascular: S1S2 reg, no murmur Lungs: Bibasilar rales, no accessory muscle use, supplemental oxygen Abdominal: Soft, nontender to palpation, no guarding, no appreciable organomegaly Ext: No gross muscle atrophy, 2+ pitting edema, no contractures Neuro: CN II-XI grossly intact, no focal neuro deficits Psych: Alert, oriented, appropriate affect Data Reviewed Today: Pertinent Labs: Hemoglobin 8.8, platelet 235, sodium 133, potassium 4.4.3, creatinine 1.8, magnesium 1.7 Imaging: No new imaging Assessment and Plan: Active: Acute hypoxic respiratory failure ESRD on hemodialysis Hypervolemic hyponatremia, resolving Acute CHF systolic exacerbation Ischemic cardiomyopathy History of CAD status post CABG COPD not in exacerbation -Continue IV Lasix 60 every 12 hours, monitor electrolytes and renal function -Nephrology note reviewed, continue hemodialysis today and likely tomorrow as well -Intake and output, daily weight -Continue to wean oxygen, home O2 evaluation at the time of discharge -Pulmonology also following -Continue aspirin 81 mg, atorvastatin 40 mg, Plavix 75 mg -Continue metoprolol 25 daily -Consider SGLT2 inhibitor and ACEi/ARB Anemia of chronic kidney disease, stable -No active bleeding -Repeat CBC tomorrow Hypertension -Continue hydralazine 25 3 times daily Type 2 diabetes, insulin-dependent -Continue Lantus 14 units daily -Sliding scale insulin ACH S, monitor for hypoglycemia Hypothyroidism -Synthroid 176 mcg daily DVT ppx: Subcu heparin Code status: Anticipated discharge place: Pending clinical course Anticipated discharge time: Pending clinical course Objective - Vital Signs Vital signs: Vital Signs Temp 97.6 F 07/11/24 12:39 Pulse 72 07/11/24 12:39 Resp 14 07/11/24 12:39 BP 119/70 07/11/24 12:39 Pulse Ox 97 07/11/24 09:15 FiO2 Intake & Output 07/10/24 07/11/24 07/11/24 18:59 06:59 18:59 Intake Total 400 400 Output Total 6600 6400 Balance -6200 -6000 Weight 75 kg Intake: Hemodialysis 400 400 Output: Hemodialysis 3500 3400 Hemodialysis Net Amount 3100 3000 Other: # Voids 1 - Labs CBC & Chem 7: 07/11/24 04:50 07/11/24 04:50 Labs: Abnormal Lab Results - Last 24 Hours (Table) 07/11/24 07/11/24 Range/Units 04:50 04:50 WBC 3.05 L (4.50-10.00) X 10*3/uL RBC 2.92 L (4.10-5.20) X 10*6/uL Hgb 8.8 L (12.0-15.0) g/dL Hct 27.5 L (37.2-46.3) % RDW 15.9 H (11.5-14.5) % Neutrophils # 1.63 L (1.80-7.70) X 10*3/uL Lymphocytes # 0.86 L (0.90-5.00) X 10*3/uL Sodium 133 L (135-145) mmol/L Creatinine 1.8 H (0.6-1.5) mg/dL Est GFR (CKD-EPI) 32 L (>=60) Glucose 145 H (70-110) mg/dL Calcium 7.5 L (8.7-10.3) mg/dL AST 12 L (13-35) U/L Total Protein 4.7 L (6.2-8.2) g/dL Albumin 2.6 L (3.8-4.9) g/dL Albumin/Globulin Ratio 1.24 L (1.60-3.17) Ratio
[2024-07-11] MEDS: INSULIN DETEMIR (LEVEMIR) 100 UNIT/ML SYR SQ SCH (12:57)
--- NOTE | 2024-07-11 15:43 | P.PN ---
Subjective Progress Note Date: 07/11/24 Patient is a 59-year-old white female with past medical history significant for coronary artery disease status post CABG in Feb, 2024. She also has history of end-stage renal disease (receives hemodialysis on a Monday, Monday, Monday schedule), severe ischemic cardiomyopathy, COPD, diabetes mellitus, hypertension, hyperlipidemia, hypothyroidism, fibromyalgia. She is a former tobacco smoker, quitting in December,. Of note, patient recently treated for COVID traction at [facility] approximately 1 month ago, she reportedly ended up being transferred to [facility]. She had a pleural effusion and underwent previous thoracentesis on the right side during her hospitalization. Of note, patient had a recent hospitalization at our facility on 07/01/2024 with similar presentation. At that time, she had missed hemodialysis, presented with fluid overload. She was discharged home on 07/05/2024. She returns to the emergency department yesterday afternoon with worsening shortness of breath over the last couple days. She again has missed hemodialysis on Monday. Her last treatment was last Monday. She states that she was too short of breath and weak to make it to her appointments. She has been using a friends supplemental oxygen. States that she does not have oxygen tanks of her own. Previously did not qualify for home O2. Patient appears to be in a fluid positive status. She has pitting lower extremity edema. Chest x- ray demonstrates similar fluid overload state. There is cardiomegaly, bilateral pleural effusions, and mild pulmonary vascular congestion. No obvious focal consolidations or pneumonia. She states that she does have a lingering cough, that has been persistent since her COVID infection. Not particularly productive. Denies any fevers or chills. Denies any chest pain. Denies any hemoptysis. Occasionally wheezing and associated shortness of breath reported, but not currently. Does have history of COPD. CBC: WBC count 4.6, hemoglobin 11.4, hematocrit 35.6, platelets 290. CMP: Sodium 129, potassium 5.7, chloride 96, serum bicarb 24, BUN 34, creatinine 2.09, glucose 280. Troponin less than 0.012. NT proBNP significantly elevated at 24,200. EKG: Normal sinus rhythm, rate 84 bpm, with LBBB pattern, similar to prior EKG, no obvious acute ischemic changes. She is currently receiving Lasix 40 mg twice daily. She is not anuric. Voids approximately 2 times per day. Plan is for inpatient hemodialysis. Currently resting comfortably on 3 L/min nasal cannula. SpO2 is 95%. No conversational dyspnea or accessory muscle use. She wants to see if she qualifies for home oxygen again. The patient is seen today July 11, 2024 in follow-up on the regular medical floor. She is currently sitting up in bed. Awake and alert in no acute distress. Currently receiving hemodialysis. She is maintaining saturations in the upper 90s on 3 L/min per nasal cannula. She is afebrile. Hemodynamically stable. White count 3.0. Hemoglobin 8.8. Platelets 235. Sodium 133. Potassium 4.3. Bicarb 26. BUN 25. Creatinine 1.8. Glucose 144. Procalcitonin was negative at 0.15. She remains on Symbicort, DuoNeb and elations. Heparin for DVT prophylaxis. She is continued on IV diuretics. Currently in a -6.1 L balance. Objective - Vital Signs Vital signs: Vital Signs Temp 97.5 F L 07/11/24 13:45 Pulse 76 07/11/24 13:45 Resp 18 07/11/24 13:45 BP 110/72 07/11/24 13:45 Pulse Ox 91 L 07/11/24 13:45 FiO2 Intake & Output 07/10/24 07/11/24 07/11/24 18:59 06:59 18:59 Intake Total 400 400 Output Total 6600 6400 Balance -6200 -6000 Weight 75 kg Intake: Hemodialysis 400 400 Output: Hemodialysis 3500 3400 Hemodialysis Net Amount 3100 3000 Other: # Voids 1 - Exam GENERAL EXAM: Alert, 59-year-old female, on 3 L nasal cannula, currently receiving hemodialysis, comfortable in no apparent distress. HEAD: Normocephalic and atraumatic EYES: Normal reaction of pupils, equal size. NOSE: Clear with pink turbinates. THROAT: No erythema or exudates. NECK: No masses, no JVD. CHEST: No chest wall deformity. Right chest tunneled HD cath LUNGS: Equal air entry with diminished bibasilar lung sounds. No wheezes, rhonchi, crackles. CVS: S1 and S2 normal with no audible murmur, regular rhythm. No extra heart sounds ABDOMEN: No hepatosplenomegaly, active bowel sounds, no guarding or rigidity. SPINE: No scoliosis or deformity SKIN: No rashes. Left lower extremity shallow ulceration with clear discharge. CENTRAL NERVOUS SYSTEM: No focal deficits, tone is normal in all 4 extremities. EXTREMITIES: Bilateral lower extremity 2+ pitting edema. Peripheral pulses are intact. - Labs CBC & Chem 7: 07/11/24 04:50 07/11/24 04:50 Labs: Abnormal Lab Results - Last 24 Hours (Table) 07/11/24 07/11/24 Range/Units 04:50 04:50 WBC 3.05 L (4.50-10.00) X 10*3/uL RBC 2.92 L (4.10-5.20) X 10*6/uL Hgb 8.8 L (12.0-15.0) g/dL Hct 27.5 L (37.2-46.3) % RDW 15.9 H (11.5-14.5) % Neutrophils # 1.63 L (1.80-7.70) X 10*3/uL Lymphocytes # 0.86 L (0.90-5.00) X 10*3/uL Sodium 133 L (135-145) mmol/L Creatinine 1.8 H (0.6-1.5) mg/dL Est GFR (CKD-EPI) 32 L (>=60) Glucose 145 H (70-110) mg/dL Calcium 7.5 L (8.7-10.3) mg/dL AST 12 L (13-35) U/L Total Protein 4.7 L (6.2-8.2) g/dL Albumin 2.6 L (3.8-4.9) g/dL Albumin/Globulin Ratio 1.24 L (1.60-3.17) Ratio Assessment and Plan Assessment: Acute hypoxemic respiratory failure, multifactorial, secondary to missed hemodialysis, fluid overload, and acute systolic CHF exacerbation. Hypervolemic hyponatremia Hyperkalemia, potassium 5.7 Bilateral pleural effusions, with history of right-sided thoracentesis at outside facility History of multivessel coronary artery disease status post four-vessel coronary artery bypass grafting on 02/26/2024 History of a non-ST elevation [place] History of ischemic cardiomyopathy, with an ejection fraction estimated at 20 to 25%, as well as, moderate to severe mitral valve regurgitation History of COVID-19 infection, treated outpatient facility, approximately 1 month ago End-stage renal disease, normally maintained on hemodialysis, on a MWF schedule Chronic obstructive pulmonary disease, stable Diabetes mellitus type 1 History of hyperlipidemia History of hypertension History of CVA/TIA History of hypothyroidism History of fibromyalgia History of GERD Former tobacco smoker, quit smoking in December 2023 Plan: The patient was seen and evaluated Labs and medications reviewed Continuing with hemodialysis Titrate down the FiO2 as tolerated Follow-up chest x-ray in a.m. We will continue to follow I have personally seen and examined the patient, performed the documentation and the assessment and plan as written. Number of minutes spent on the visit: 10.
[2024-07-11 16:42] LABS: Glucose,Whole Blood 234 mg/dL (70-110)
[2024-07-11 20:44] LABS: Glucose,Whole Blood 33 mg/dL (70-110)
[2024-07-11 21:00] LABS: Glucose,Whole Blood 55 mg/dL (70-110)
[2024-07-11] MEDS: FUROSEMIDE 10 MG/ML 10 ML VIAL IV SCH (21:16)
[2024-07-11 21:40] LABS: Glucose,Whole Blood 56 mg/dL (70-110)
[2024-07-11] MEDS ORDERED: DEXTROSE 50% SYRINGE 50 ML IVP PRN ×3 (21:54→21:57)
[2024-07-11] MEDS: DEXTROSE 50% SYRINGE 50 ML IVP PRN (22:14)
[2024-07-11 23:14] LABS: Glucose,Whole Blood 110 mg/dL (70-110)
[2024-07-12 06:17] LABS: Glucose,Whole Blood 52 mg/dL (70-110)
[2024-07-12 06:59] LABS: Glucose,Whole Blood 173 mg/dL (70-110)
[2024-07-12 06:59] LABS: Glucose,Whole Blood 190 mg/dL (70-110)
[2024-07-12 07:01] LABS: Glucose,Whole Blood 134 mg/dL (70-110)
[2024-07-12 07:01] LABS: Glucose,Whole Blood 233 mg/dL (70-110)
[2024-07-12 07:17] LABS: Glucose,Whole Blood 160 mg/dL (70-110)
[2024-07-12 07:17] LABS: Glucose,Whole Blood 297 mg/dL (70-110)
[2024-07-12 07:26] LABS: Glucose,Whole Blood 108 mg/dL (70-110)
[2024-07-12 08:38] LABS: Basophils # (A) 0.03 X 10*3/uL (0.00-0.10); Basophils % (A) 0.8 %; Eosinophils % (A) 5.2 %; HCT 28.8 % (37.2-46.3); HGB 9.1 g/dL (12.0-15.0); Lymphocytes # (A) 1.21 X 10*3/uL (0.90-5.00); Lymphocytes % (A) 31.3 %; MCH 30.1 pg (27.0-32.0); MCHC 31.6 g/dL (32.0-37.0); MCV 95.4 FL (80.0-97.0); Monocytes # (A) 0.45 X 10*3/uL (0.20-1.00); Monocytes % (A) 11.6 %; NRBC Per 100 WBC 0 X 10*3/uL (0.00-0.01); Neutrophils # (A) 1.97 X 10*3/uL (1.80-7.70); Neutrophils % (A) 50.8 %; Platelet Count 245 X 10*3/uL (140-440); RBC 3.02 X 10*6/uL (4.10-5.20); RDW 15.8 % (11.5-14.5); WBC 3.87 X 10*3/uL (4.50-10.00)
[2024-07-12 09:08] LABS: Magnesium 1.8 mg/dL (1.5-2.4)
[2024-07-12 09:30] LABS: BUN/Creat Ratio 9.15 Ratio (12.00-20.00); Blood Urea Nitrogen 18.3 mg/dL (9.0-27.0); Calcium 7.9 mg/dL (8.7-10.3); Carbon Dioxide 26.6 mmol/L (21.6-31.8); Chloride 99 mmol/L (96-109); Glucose 47 mg/dL (70-110); Potassium 4.6 mmol/L (3.5-5.5); Sodium 134 mmol/L (135-145)
[2024-07-12 11:23] LABS: Glucose,Whole Blood 233 mg/dL (70-110)
--- NOTE | 2024-07-12 14:32 | P.PN ---
Subjective Progress Note Date: 07/12/24 Patient is a 59-year-old white female with past medical history significant for coronary artery disease status post CABG in Feb, 2024. She also has history of end-stage renal disease (receives hemodialysis on a Monday, Monday, Monday schedule), severe ischemic cardiomyopathy, COPD, diabetes mellitus, hypertension, hyperlipidemia, hypothyroidism, fibromyalgia. She is a former tobacco smoker, quitting in December,. Of note, patient recently treated for COVID traction at [facility] approximately 1 month ago, she reportedly ended up being transferred to [facility]. She had a pleural effusion and underwent previous thoracentesis on the right side during her hospitalization. Of note, patient had a recent hospitalization at our facility on 07/01/2024 with similar presentation. At that time, she had missed hemodialysis, presented with fluid overload. She was discharged home on 07/05/2024. She returns to the emergency department yesterday afternoon with worsening shortness of breath over the last couple days. She again has missed hemodialysis on Monday. Her last treatment was last Monday. She states that she was too short of breath and weak to make it to her appointments. She has been using a friends supplemental oxygen. States that she does not have oxygen tanks of her own. Previously did not qualify for home O2. Patient appears to be in a fluid positive status. She has pitting lower extremity edema. Chest x- ray demonstrates similar fluid overload state. There is cardiomegaly, bilateral pleural effusions, and mild pulmonary vascular congestion. No obvious focal consolidations or pneumonia. She states that she does have a lingering cough, that has been persistent since her COVID infection. Not particularly productive. Denies any fevers or chills. Denies any chest pain. Denies any hemoptysis. Occasionally wheezing and associated shortness of breath reported, but not currently. Does have history of COPD. CBC: WBC count 4.6, hemoglobin 11.4, hematocrit 35.6, platelets 290. CMP: Sodium 129, potassium 5.7, chloride 96, serum bicarb 24, BUN 34, creatinine 2.09, glucose 280. Troponin less than 0.012. NT proBNP significantly elevated at 24,200. EKG: Normal sinus rhythm, rate 84 bpm, with LBBB pattern, similar to prior EKG, no obvious acute ischemic changes. She is currently receiving Lasix 40 mg twice daily. She is not anuric. Voids approximately 2 times per day. Plan is for inpatient hemodialysis. Currently resting comfortably on 3 L/min nasal cannula. SpO2 is 95%. No conversational dyspnea or accessory muscle use. She wants to see if she qualifies for home oxygen again. The patient is seen today July 11, 2024 in follow-up on the regular medical floor. She is currently sitting up in bed. Awake and alert in no acute distress. Currently receiving hemodialysis. She is maintaining saturations in the upper 90s on 3 L/min per nasal cannula. She is afebrile. Hemodynamically stable. White count 3.0. Hemoglobin 8.8. Platelets 235. Sodium 133. Potassium 4.3. Bicarb 26. BUN 25. Creatinine 1.8. Glucose 144. Procalcitonin was negative at 0.15. She remains on Symbicort, DuoNeb and elations. Heparin for DVT prophylaxis. She is continued on IV diuretics. Currently in a -6.1 L balance. The patient is seen today July 12, 2024 in follow-up on the regular medical floor. She is awake and alert in no acute distress. Sitting up in bed. Denies any worsening shortness of breath, cough or congestion. White count 3.8. Hemoglobin 9.1. Platelets 245. Sodium 134. Potassium 4.6. Bicarb 27. BUN 18. Creatinine 2.0. Glucose 233. She did have 3 L removed during hemodialysis yesterday and another 3 L removed today. Chest x-ray showing improvement in the fluid volume overload. She is maintaining O2 saturations in the 90s on room air. She has been afebrile. Hemodynamically stable. Objective - Vital Signs Vital signs: Vital Signs Temp 97.7 F 07/12/24 13:35 Pulse 80 07/12/24 13:35 Resp 18 07/12/24 13:35 BP 110/56 07/12/24 13:35 Pulse Ox 93 L 07/12/24 13:35 FiO2 Intake & Output 07/11/24 07/12/24 07/12/24 18:59 06:59 18:59 Intake Total 400 Output Total 6400 Balance -6000 Weight 74.5 kg Intake: Hemodialysis 400 Output: Hemodialysis 3400 Hemodialysis Net Amount 3000 - Exam GENERAL EXAM: Alert, 59-year-old female, on room air, comfortable in no apparent distress. HEAD: Normocephalic and atraumatic EYES: Normal reaction of pupils, equal size. NOSE: Clear with pink turbinates. THROAT: No erythema or exudates. NECK: No masses, no JVD. CHEST: No chest wall deformity. Right chest tunneled HD cath LUNGS: Equal air entry with diminished bibasilar lung sounds. No wheezes, rhonchi, crackles. CVS: S1 and S2 normal with no audible murmur, regular rhythm. No extra heart sounds ABDOMEN: No hepatosplenomegaly, active bowel sounds, no guarding or rigidity. SPINE: No scoliosis or deformity SKIN: No rashes. Left lower extremity shallow ulceration with clear discharge. CENTRAL NERVOUS SYSTEM: No focal deficits, tone is normal in all 4 extremities. EXTREMITIES: Bilateral lower extremity 2+ pitting edema. Peripheral pulses are intact. - Labs CBC & Chem 7: 07/12/24 03:41 07/12/24 03:41 Labs: Abnormal Lab Results - Last 24 Hours (Table) 07/10/24 07/10/24 07/10/24 Range/Units 06:45 12:01 16:48 WBC (4.50-10.00) X 10*3/uL RBC (4.10-5.20) X 10*6/uL Hgb (12.0-15.0) g/dL Hct (37.2-46.3) % MCHC (32.0-37.0) g/dL RDW (11.5-14.5) % Sodium (135-145) mmol/L Creatinine (0.6-1.5) mg/dL Est GFR (CKD-EPI) (>=60) BUN/Creatinine Ratio (12.00-20.00) Ratio Glucose (70-110) mg/dL POC Glucose (mg/dL) 160 H 297 H 134 H (70-110) mg/dL Calcium (8.7-10.3) mg/dL 07/10/24 07/11/24 07/11/24 Range/Units 20:49 05:48 11:19 WBC (4.50-10.00) X 10*3/uL RBC (4.10-5.20) X 10*6/uL Hgb (12.0-15.0) g/dL Hct (37.2-46.3) % MCHC (32.0-37.0) g/dL RDW (11.5-14.5) % Sodium (135-145) mmol/L Creatinine (0.6-1.5) mg/dL Est GFR (CKD-EPI) (>=60) BUN/Creatinine Ratio (12.00-20.00) Ratio Glucose (70-110) mg/dL POC Glucose (mg/dL) 233 H 173 H 190 H (70-110) mg/dL Calcium (8.7-10.3) mg/dL 07/11/24 07/11/24 07/11/24 Range/Units 16:41 20:32 20:56 WBC (4.50-10.00) X 10*3/uL RBC (4.10-5.20) X 10*6/uL Hgb (12.0-15.0) g/dL Hct (37.2-46.3) % MCHC (32.0-37.0) g/dL RDW (11.5-14.5) % Sodium (135-145) mmol/L Creatinine (0.6-1.5) mg/dL Est GFR (CKD-EPI) (>=60) BUN/Creatinine Ratio (12.00-20.00) Ratio Glucose (70-110) mg/dL POC Glucose (mg/dL) 234 H 33 L* 55 L (70-110) mg/dL Calcium (8.7-10.3) mg/dL 07/11/24 07/12/24 07/12/24 Range/Units 21:35 03:41 03:41 WBC 3.87 L (4.50-10.00) X 10*3/uL RBC 3.02 L (4.10-5.20) X 10*6/uL Hgb 9.1 L (12.0-15.0) g/dL Hct 28.8 L (37.2-46.3) % MCHC 31.6 L (32.0-37.0) g/dL RDW 15.8 H (11.5-14.5) % Sodium 134 L (135-145) mmol/L Creatinine 2.0 H (0.6-1.5) mg/dL Est GFR (CKD-EPI) 28 L (>=60) BUN/Creatinine Ratio 9.15 L (12.00-20.00) Ratio Glucose 47 A* (70-110) mg/dL POC Glucose (mg/dL) 56 L (70-110) mg/dL Calcium 7.9 L (8.7-10.3) mg/dL 07/12/24 07/12/24 Range/Units 06:15 11:21 WBC (4.50-10.00) X 10*3/uL RBC (4.10-5.20) X 10*6/uL Hgb (12.0-15.0) g/dL Hct (37.2-46.3) % MCHC (32.0-37.0) g/dL RDW (11.5-14.5) % Sodium (135-145) mmol/L Creatinine (0.6-1.5) mg/dL Est GFR (CKD-EPI) (>=60) BUN/Creatinine Ratio (12.00-20.00) Ratio Glucose (70-110) mg/dL POC Glucose (mg/dL) 52 L 233 H (70-110) mg/dL Calcium (8.7-10.3) mg/dL Assessment and Plan Assessment: Acute hypoxemic respiratory failure, multifactorial, secondary to missed hemodialysis, fluid overload, and acute systolic CHF exacerbation Hypervolemic hyponatremia Hyperkalemia, potassium 5.7, improved currently 4.6 Bilateral pleural effusions, with history of right-sided thoracentesis at outside facility History of multivessel coronary artery disease status post four-vessel coronary artery bypass grafting on 02/26/2024 History of a non-ST elevation [place] History of ischemic cardiomyopathy, with an ejection fraction estimated at 20 to 25%, as well as, moderate to severe mitral valve regurgitation History of COVID-19 infection, treated outpatient facility, approximately 1 month ago End-stage renal disease, normally maintained on hemodialysis, on a MWF schedule Chronic obstructive pulmonary disease, stable Diabetes mellitus type 1 History of hyperlipidemia History of hypertension History of CVA/TIA History of hypothyroidism History of fibromyalgia History of GERD Former tobacco smoker, quit smoking in December 2023 Plan: The patient was seen and evaluated Chest x-ray, labs and medications reviewed Continuing with hemodialysis Currently and on stable on room Home once cleared by nephrology I have personally seen and examined the patient, performed the documentation and the assessment and plan as written. Number of minutes spent on the visit: 10.
--- NOTE | 2024-07-12 14:53 | XR ---
EXAMINATION TYPE: XR chest 1V portable DATE OF EXAM: 07/12/2024 2:30 PM CLINICAL INDICATION: Female, 59 years old with history of CHF; [facility] COMPARISON: Chest radiographs from TECHNIQUE: XR chest 1V portable Frontal view of the chest. FINDINGS: Lungs/Pleura: There is no evidence of pleural effusion, focal consolidation, or pneumothorax. Pulmonary vascularity: Pulmonary vascular congestion. Heart/mediastinum: Cardiomediastinal silhouette is enlarged. Atrial septal defect occlusion device pr esent. Musculoskeletal: No acute osseous pathology. Midline sternotomy wires are noted. Other findings: None Lines/Tubes: Right internal jugular central venous catheter with distal tip at the cavoatrial junction. IMPRESSION: Cardiomegaly, pulmonary vascular congestion and bilateral pleural effusions. Correlate with BNP for c ongestive heart failure. [facility], Workstation: [facility], 07/12/2024 2:51 PM
--- NOTE | 2024-07-12 15:45 | P.PN ---
Subjective Progress Note Date: 07/12/24 No new complaints. Patient is resting comfortably on my exam during dialysis. Gen: In NAD, non-toxic HEENT: normocephalic, atraumatic, hearing acuity is intant, mucous membranes moist CVS: perfusing all extremities well, no pitting edema, Respiratory: symmetric chest expansion, no accessory muscle use, GI: soft, NTTP, ND, : no suprapubic tenderness, no CVA tenderness MSK/Derm: no rashes, cyanosis Neuro: CN II-XII intact, no motor weakness, Hospital course: Hospital Course: 59-year-old female with history of HFrEF, EF around 20%, ESRD on hemodialysis, COPD, type 2 diabetes, CAD status post CABG, dyslipidemia, GERD, hypothyroidism, anxiety/depression presenting with acute hypoxic respiratory failure secondary to hypervolemia, CHF exacerbation and ESRD requiring hemodialysis. ED workup revealed proBNP 63635, troponin 1 <0.012 and chest x-ray that shows pulmonary vascular congestion with small bilateral pleural effusion similar to prior on 07/05/2024. In the ED she was treated with Dilaudid, DuoNebs and 0.9 normal saline. Vitals: T97.3F, P 85 bpm, RR 16, BP 127/79, O2 sat 98% on room air. Coag: PT 10.3, INR 0.9, APTT 25.3. EKG: Sinus rhythm, rate of 84 bpm, QTc 486 ms, LVH, poor R wave progression. Patient admitted with consultation for pulmonology, and nephrology. Patient currently on IV Lasix. Now getting dialysis, symptoms are improving Assessment and Plan: Active: Acute hypoxic respiratory failure ESRD on hemodialysis Hypervolemic hyponatremia, resolving Acute CHF systolic exacerbation Ischemic cardiomyopathy History of CAD status post CABG COPD not in exacerbation -Continue IV Lasix 60 every 12 hours, monitor electrolytes and renal function -Nephrology note reviewed, continue hemodialysis today -Intake and output, daily weight -Continue to wean oxygen, home O2 evaluation at the time of discharge -Pulmonology also following -Continue aspirin 81 mg, atorvastatin 40 mg, Plavix 75 mg -Continue metoprolol 25 daily -Consider SGLT2 inhibitor and ACEi/ARB Anemia of chronic kidney disease, stable -No active bleeding -Repeat CBC tomorrow Hypertension -Continue hydralazine 25 3 times daily Type 2 diabetes, insulin-dependent -Continue Lantus 14 units daily -Sliding scale insulin ACH S, monitor for hypoglycemia Hypothyroidism -Synthroid 176 mcg daily DVT ppx: Subcu heparin Code status: FC Anticipated discharge place: Pending clinical course Anticipated discharge time: Pending clinical course Objective - Vital Signs Vital signs: Vital Signs Temp 97.7 F 07/12/24 13:35 Pulse 80 07/12/24 13:35 Resp 18 07/12/24 13:35 BP 110/56 07/12/24 13:35 Pulse Ox 93 L 07/12/24 13:35 FiO2 Intake & Output 07/11/24 07/12/24 07/12/24 18:59 06:59 18:59 Intake Total 400 Output Total 6400 Balance -6000 Weight 74.5 kg Intake: Hemodialysis 400 Output: Hemodialysis 3400 Hemodialysis Net Amount 3000 - Labs CBC & Chem 7: 07/12/24 03:41 07/12/24 03:41 Labs: Abnormal Lab Results - Last 24 Hours (Table) 07/10/24 07/10/24 07/10/24 Range/Units 06:45 12:01 16:48 WBC (4.50-10.00) X 10*3/uL RBC (4.10-5.20) X 10*6/uL Hgb (12.0-15.0) g/dL Hct (37.2-46.3) % MCHC (32.0-37.0) g/dL RDW (11.5-14.5) % Sodium (135-145) mmol/L Creatinine (0.6-1.5) mg/dL Est GFR (CKD-EPI) (>=60) BUN/Creatinine Ratio (12.00-20.00) Ratio Glucose (70-110) mg/dL POC Glucose (mg/dL) 160 H 297 H 134 H (70-110) mg/dL Calcium (8.7-10.3) mg/dL 07/10/24 07/11/24 07/11/24 Range/Units 20:49 05:48 11:19 WBC (4.50-10.00) X 10*3/uL RBC (4.10-5.20) X 10*6/uL Hgb (12.0-15.0) g/dL Hct (37.2-46.3) % MCHC (32.0-37.0) g/dL RDW (11.5-14.5) % Sodium (135-145) mmol/L Creatinine (0.6-1.5) mg/dL Est GFR (CKD-EPI) (>=60) BUN/Creatinine Ratio (12.00-20.00) Ratio Glucose (70-110) mg/dL POC Glucose (mg/dL) 233 H 173 H 190 H (70-110) mg/dL Calcium (8.7-10.3) mg/dL 07/11/24 07/11/24 07/11/24 Range/Units 16:41 20:32 20:56 WBC (4.50-10.00) X 10*3/uL RBC (4.10-5.20) X 10*6/uL Hgb (12.0-15.0) g/dL Hct (37.2-46.3) % MCHC (32.0-37.0) g/dL RDW (11.5-14.5) % Sodium (135-145) mmol/L Creatinine (0.6-1.5) mg/dL Est GFR (CKD-EPI) (>=60) BUN/Creatinine Ratio (12.00-20.00) Ratio Glucose (70-110) mg/dL POC Glucose (mg/dL) 234 H 33 L* 55 L (70-110) mg/dL Calcium (8.7-10.3) mg/dL 07/11/24 07/12/24 07/12/24 Range/Units 21:35 03:41 03:41 WBC 3.87 L (4.50-10.00) X 10*3/uL RBC 3.02 L (4.10-5.20) X 10*6/uL Hgb 9.1 L (12.0-15.0) g/dL Hct 28.8 L (37.2-46.3) % MCHC 31.6 L (32.0-37.0) g/dL RDW 15.8 H (11.5-14.5) % Sodium 134 L (135-145) mmol/L Creatinine 2.0 H (0.6-1.5) mg/dL Est GFR (CKD-EPI) 28 L (>=60) BUN/Creatinine Ratio 9.15 L (12.00-20.00) Ratio Glucose 47 A* (70-110) mg/dL POC Glucose (mg/dL) 56 L (70-110) mg/dL Calcium 7.9 L (8.7-10.3) mg/dL 07/12/24 07/12/24 Range/Units 06:15 11:21 WBC (4.50-10.00) X 10*3/uL RBC (4.10-5.20) X 10*6/uL Hgb (12.0-15.0) g/dL Hct (37.2-46.3) % MCHC (32.0-37.0) g/dL RDW (11.5-14.5) % Sodium (135-145) mmol/L Creatinine (0.6-1.5) mg/dL Est GFR (CKD-EPI) (>=60) BUN/Creatinine Ratio (12.00-20.00) Ratio Glucose (70-110) mg/dL POC Glucose (mg/dL) 52 L 233 H (70-110) mg/dL Calcium (8.7-10.3) mg/dL
--- NOTE | 2024-07-12 16:09 | P.PN ---
Subjective patient is seen for follow-up for end-stage renal disease. Tolerating treatment well. No significant complaints. Patient is seen on hemodialysis Volume status has improved Objective - Vital Signs Vital signs: Vital Signs Temp 97.7 F 07/12/24 13:35 Pulse 70 07/12/24 16:02 Resp 18 07/12/24 13:35 BP 110/56 07/12/24 13:35 Pulse Ox 93 L 07/12/24 13:35 FiO2 Intake & Output 07/11/24 07/12/24 07/12/24 18:59 06:59 18:59 Intake Total 400 Output Total 6400 Balance -6000 Weight 74.5 kg Intake: Hemodialysis 400 Output: Hemodialysis 3400 Hemodialysis Net Amount 3000 - Exam Patient is awake, comfortable, no acute distress. Examination of the heart S1 and S2 Examination of the lungs bilateral breath sounds are heard Abdomen is soft nontender Examination of lower extremity shows edema 2-3+ bilaterally worse on the left leg. Left lower leg wound is dressed - Labs CBC & Chem 7: 07/12/24 03:41 07/12/24 03:41 Labs: Abnormal Lab Results - Last 24 Hours (Table) 07/10/24 07/10/24 07/10/24 Range/Units 06:45 12:01 16:48 WBC (4.50-10.00) X 10*3/uL RBC (4.10-5.20) X 10*6/uL Hgb (12.0-15.0) g/dL Hct (37.2-46.3) % MCHC (32.0-37.0) g/dL RDW (11.5-14.5) % Sodium (135-145) mmol/L Creatinine (0.6-1.5) mg/dL Est GFR (CKD-EPI) (>=60) BUN/Creatinine Ratio (12.00-20.00) Ratio Glucose (70-110) mg/dL POC Glucose (mg/dL) 160 H 297 H 134 H (70-110) mg/dL Calcium (8.7-10.3) mg/dL 07/10/24 07/11/24 07/11/24 Range/Units 20:49 05:48 11:19 WBC (4.50-10.00) X 10*3/uL RBC (4.10-5.20) X 10*6/uL Hgb (12.0-15.0) g/dL Hct (37.2-46.3) % MCHC (32.0-37.0) g/dL RDW (11.5-14.5) % Sodium (135-145) mmol/L Creatinine (0.6-1.5) mg/dL Est GFR (CKD-EPI) (>=60) BUN/Creatinine Ratio (12.00-20.00) Ratio Glucose (70-110) mg/dL POC Glucose (mg/dL) 233 H 173 H 190 H (70-110) mg/dL Calcium (8.7-10.3) mg/dL 07/11/24 07/11/24 07/11/24 Range/Units 16:41 20:32 20:56 WBC (4.50-10.00) X 10*3/uL RBC (4.10-5.20) X 10*6/uL Hgb (12.0-15.0) g/dL Hct (37.2-46.3) % MCHC (32.0-37.0) g/dL RDW (11.5-14.5) % Sodium (135-145) mmol/L Creatinine (0.6-1.5) mg/dL Est GFR (CKD-EPI) (>=60) BUN/Creatinine Ratio (12.00-20.00) Ratio Glucose (70-110) mg/dL POC Glucose (mg/dL) 234 H 33 L* 55 L (70-110) mg/dL Calcium (8.7-10.3) mg/dL 07/11/24 07/12/24 07/12/24 Range/Units 21:35 03:41 03:41 WBC 3.87 L (4.50-10.00) X 10*3/uL RBC 3.02 L (4.10-5.20) X 10*6/uL Hgb 9.1 L (12.0-15.0) g/dL Hct 28.8 L (37.2-46.3) % MCHC 31.6 L (32.0-37.0) g/dL RDW 15.8 H (11.5-14.5) % Sodium 134 L (135-145) mmol/L Creatinine 2.0 H (0.6-1.5) mg/dL Est GFR (CKD-EPI) 28 L (>=60) BUN/Creatinine Ratio 9.15 L (12.00-20.00) Ratio Glucose 47 A* (70-110) mg/dL POC Glucose (mg/dL) 56 L (70-110) mg/dL Calcium 7.9 L (8.7-10.3) mg/dL 07/12/24 07/12/24 Range/Units 06:15 11:21 WBC (4.50-10.00) X 10*3/uL RBC (4.10-5.20) X 10*6/uL Hgb (12.0-15.0) g/dL Hct (37.2-46.3) % MCHC (32.0-37.0) g/dL RDW (11.5-14.5) % Sodium (135-145) mmol/L Creatinine (0.6-1.5) mg/dL Est GFR (CKD-EPI) (>=60) BUN/Creatinine Ratio (12.00-20.00) Ratio Glucose (70-110) mg/dL POC Glucose (mg/dL) 52 L 233 H (70-110) mg/dL Calcium (8.7-10.3) mg/dL Assessment and Plan Assessment: 1. End-stage renal disease maintained on hemodialysis on Monday schedule. Patient was started on dialysis in March of this year. She remains dialysis dependent mostly due to volume overload. 2. Volume overload 3. Hyperkalemia associated with end-stage renal disease and missing dialysis 4. History of coronary artery disease 5. Acute hypoxic respiratory failure secondary to volume overload and CHF 6. Chronic CHF with decreased ejection fraction, ejection fraction 15 to 20% on echocardiogram in February 2024 Plan: Hemodialysis today and repeat in a.m. Continue IV Lasix Accurate I's and O's
[2024-07-12 16:33] LABS: Glucose,Whole Blood 254 mg/dL (70-110)
[2024-07-12 20:52] LABS: Glucose,Whole Blood 147 mg/dL (70-110)
[2024-07-13 05:53] LABS: Glucose,Whole Blood 321 mg/dL (70-110)
[2024-07-13 10:04] LABS: Basophils % (A) 0 %; Eosinophils % (A) 5 %; HCT 30.3 % (34.0-46.0); Lymphocytes # (A) 0.9 k/uL (1.0-4.8); Lymphocytes % (A) 27 %; MCH 30.6 pg (25.0-35.0); MCHC 32.3 g/dL (31.0-37.0); MCV 94.7 fL (80.0-100.0); Mean Platelet Volume 7.7; Monocytes % (A) 8 %; Neutrophils # (A) 1.9 k/uL (1.3-7.7); Neutrophils % (A) 56 %; Platelet Count 246 k/uL (150-450); RDW 15.6 % (11.5-15.5); WBC 3.5 k/uL (3.8-10.6)
[2024-07-13 10:05] LABS: African American GFR (CKD) 38 (>60 ml/min/1.73 sqM); Anion Gap 7 mmol/L; Blood Urea Nitrogen 22 mg/dL (7-17); Calcium 8.5 mg/dL (8.4-10.2); Carbon Dioxide 26 mmol/L (22-30); Chloride 98 mmol/L (98-107); Eosinophils # (A) 0.2 k/uL (0-0.7); Glucose 234 mg/dL (74-99); HGB 9.8 gm/dL (11.4-16.0); Magnesium 1.7 mg/dL (1.6-2.3); Monocytes # (A) 0.3 k/uL (0-1.0); Non-African American GFR(CKD) 33 (>60 ml/min/1.73 sqM); Potassium 4.5 mmol/L (3.5-5.1); Sodium 131 mmol/L (137-145)
[2024-07-13 11:50] LABS: Glucose,Whole Blood 295 mg/dL (70-110)
--- NOTE | 2024-07-13 12:14 | P.PN ---
Subjective patient is seen for follow-up for end-stage renal disease. status post hemodialysis yesterday with UF of 2.8 L Volume status has improved Objective - Vital Signs Vital signs: Vital Signs Temp 98.3 F 07/13/24 07:18 Pulse 72 07/13/24 12:03 Resp 17 07/13/24 07:18 BP 107/61 07/13/24 07:18 Pulse Ox 94 L 07/13/24 08:46 FiO2 Intake & Output 07/12/24 07/13/24 07/13/24 18:59 06:59 18:59 Intake Total 900 Output Total 6500 Balance -5600 Weight 71.5 kg Intake: Hemodialysis 900 Output: Hemodialysis 3700 Hemodialysis Net Amount 2800 Other: Voiding Method Indwelling Catheter - Exam Patient is awake, comfortable, no acute distress. Examination of the heart S1 and S2 Examination of the lungs bilateral breath sounds are heard Abdomen is soft nontender Examination of lower extremity shows edema 2-3+ bilaterally worse on the left leg. Left lower leg wound is dressed - Labs CBC & Chem 7: 07/13/24 09:14 07/13/24 09:14 Labs: Abnormal Lab Results - Last 24 Hours (Table) 07/12/24 07/12/24 07/13/24 Range/Units 16:31 20:40 05:51 WBC (3.8-10.6) k/uL RBC (3.80-5.40) m/uL Hgb (11.4-16.0) gm/dL Hct (34.0-46.0) % RDW (11.5-15.5) % Lymphocytes # (1.0-4.8) k/uL Sodium (137-145) mmol/L BUN (7-17) mg/dL Creatinine (0.52-1.04) mg/dL Glucose (74-99) mg/dL POC Glucose (mg/dL) 254 H 147 H 321 H (70-110) mg/dL 07/13/24 07/13/24 07/13/24 Range/Units 09:14 09:14 11:48 WBC 3.5 L (3.8-10.6) k/uL RBC 3.20 L (3.80-5.40) m/uL Hgb 9.8 L D (11.4-16.0) gm/dL Hct 30.3 L (34.0-46.0) % RDW 15.6 H (11.5-15.5) % Lymphocytes # 0.9 L (1.0-4.8) k/uL Sodium 131 L (137-145) mmol/L BUN 22 H (7-17) mg/dL Creatinine 1.69 H (0.52-1.04) mg/dL Glucose 234 H (74-99) mg/dL POC Glucose (mg/dL) 295 H (70-110) mg/dL Assessment and Plan Assessment: 1. End-stage renal disease maintained on hemodialysis on Monday schedule. Patient was started on dialysis in March of this year. She remains dialysis dependent mostly due to volume overload. 2. Volume overloadon my improving 3. Hyperkalemia associated with end-stage renal disease and missing dialysis 4. History of coronary artery disease 5. Acute hypoxic respiratory failure secondary to volume overload and CHF 6. Chronic CHF with decreased ejection fraction, ejection fraction 15 to 20% on echocardiogram in February 2024 Plan: Hemodialysis today Continue IV Lasix until discharge Stable for discharge from nephrology standpoint post hemodialysis today. Accurate I's and O's
--- NOTE | 2024-07-13 12:25 | P.PN ---
Subjective Progress Note Date: 07/13/24 Patient is a 59-year-old white female with past medical history significant for coronary artery disease status post CABG in Feb, 2024. She also has history of end-stage renal disease (receives hemodialysis on a Monday, Monday, Monday schedule), severe ischemic cardiomyopathy, COPD, diabetes mellitus, hypertension, hyperlipidemia, hypothyroidism, fibromyalgia. She is a former tobacco smoker, quitting in December,. Of note, patient recently treated for COVID traction at [facility] approximately 1 month ago, she reportedly ended up being transferred to [facility]. She had a pleural effusion and underwent previous thoracentesis on the right side during her hospitalization. Of note, patient had a recent hospitalization at our facility on 07/01/2024 with similar presentation. At that time, she had missed hemodialysis, presented with fluid overload. She was discharged home on 07/05/2024. She returns to the emergency department yesterday afternoon with worsening shortness of breath over the last couple days. She again has missed hemodialysis on Monday. Her last treatment was last Monday. She states that she was too short of breath and weak to make it to her appointments. She has been using a friends supplemental oxygen. States that she does not have oxygen tanks of her own. Previously did not qualify for home O2. Patient appears to be in a fluid positive status. She has pitting lower extremity edema. Chest x- ray demonstrates similar fluid overload state. There is cardiomegaly, bilateral pleural effusions, and mild pulmonary vascular congestion. No obvious focal consolidations or pneumonia. She states that she does have a lingering cough, that has been persistent since her COVID infection. Not particularly productive. Denies any fevers or chills. Denies any chest pain. Denies any hemoptysis. Occasionally wheezing and associated shortness of breath reported, but not currently. Does have history of COPD. CBC: WBC count 4.6, hemoglobin 11.4, hematocrit 35.6, platelets 290. CMP: Sodium 129, potassium 5.7, chloride 96, serum bicarb 24, BUN 34, creatinine 2.09, glucose 280. Troponin less than 0.012. NT proBNP significantly elevated at 24,200. EKG: Normal sinus rhythm, rate 84 bpm, with LBBB pattern, similar to prior EKG, no obvious acute ischemic changes. She is currently receiving Lasix 40 mg twice daily. She is not anuric. Voids approximately 2 times per day. Plan is for inpatient hemodialysis. Currently resting comfortably on 3 L/min nasal cannula. SpO2 is 95%. No conversational dyspnea or accessory muscle use. She wants to see if she qualifies for home oxygen again. The patient is seen today July 11, 2024 in follow-up on the regular medical floor. She is currently sitting up in bed. Awake and alert in no acute distress. Currently receiving hemodialysis. She is maintaining saturations in the upper 90s on 3 L/min per nasal cannula. She is afebrile. Hemodynamically stable. White count 3.0. Hemoglobin 8.8. Platelets 235. Sodium 133. Potassium 4.3. Bicarb 26. BUN 25. Creatinine 1.8. Glucose 144. Procalcitonin was negative at 0.15. She remains on Symbicort, DuoNeb and elations. Heparin for DVT prophylaxis. She is continued on IV diuretics. Currently in a -6.1 L balance. The patient is seen today July 12, 2024 in follow-up on the regular medical floor. She is awake and alert in no acute distress. Sitting up in bed. Denies any worsening shortness of breath, cough or congestion. White count 3.8. Hemoglobin 9.1. Platelets 245. Sodium 134. Potassium 4.6. Bicarb 27. BUN 18. Creatinine 2.0. Glucose 233. She did have 3 L removed during hemodialysis yesterday and another 3 L removed today. Chest x-ray showing improvement in the fluid volume overload. She is maintaining O2 saturations in the 90s on room air. She has been afebrile. Hemodynamically stable. The patient is seen today July 13, 2024 in follow-up on the regular medical floor. She is currently sitting up in a chair at the bedside. Awake and alert in no acute distress. She is maintaining good O2 saturations in the 90s on 3 L/min per nasal cannula. Chest x-ray is showing improvement in the fluid volume overload. Plan is for hemodialysis today. Possible home after that. White count 3.5. Hemoglobin 9.8. Platelets 246. Sodium 131. Potassium 4.5. Bicarb 26. BUN 22. Creatinine 1.69. Glucose 234. She is continued on DuoNeb ventilations, Symbicort. Heparin for DVT prophylaxis. Remains on IV diuretics. Currently in a -5.6 L balance. 2.8 L removed from dialysis. Objective - Vital Signs Vital signs: Vital Signs Temp 98.3 F 07/13/24 07:18 Pulse 74 07/13/24 12:13 Resp 17 07/13/24 07:18 BP 107/61 07/13/24 07:18 Pulse Ox 94 L 07/13/24 08:46 FiO2 Intake & Output 07/12/24 07/13/24 07/13/24 18:59 06:59 18:59 Intake Total 900 Output Total 6500 Balance -5600 Weight 71.5 kg Intake: Hemodialysis 900 Output: Hemodialysis 3700 Hemodialysis Net Amount 2800 Other: Voiding Method Indwelling Catheter - Exam GENERAL EXAM: Alert, 59-year-old female, sitting up in a chair, on 3 L nasal cannula, comfortable in no apparent distress. HEAD: Normocephalic and atraumatic EYES: Normal reaction of pupils, equal size. NOSE: Clear with pink turbinates. THROAT: No erythema or exudates. NECK: No masses, no JVD. CHEST: No chest wall deformity. Right chest tunneled HD cath LUNGS: Equal air entry with diminished bibasilar lung sounds. No wheezes, rhonchi, crackles. CVS: S1 and S2 normal with no audible murmur, regular rhythm. No extra heart sounds ABDOMEN: No hepatosplenomegaly, active bowel sounds, no guarding or rigidity. SPINE: No scoliosis or deformity SKIN: No rashes. Left lower extremity shallow ulceration with clear discharge. CENTRAL NERVOUS SYSTEM: No focal deficits, tone is normal in all 4 extremities. EXTREMITIES: Bilateral lower extremity 2+ pitting edema. Peripheral pulses are intact. - Labs CBC & Chem 7: 07/13/24 09:14 07/13/24 09:14 Labs: Abnormal Lab Results - Last 24 Hours (Table) 07/12/24 07/12/24 07/13/24 Range/Units 16:31 20:40 05:51 WBC (3.8-10.6) k/uL RBC (3.80-5.40) m/uL Hgb (11.4-16.0) gm/dL Hct (34.0-46.0) % RDW (11.5-15.5) % Lymphocytes # (1.0-4.8) k/uL Sodium (137-145) mmol/L BUN (7-17) mg/dL Creatinine (0.52-1.04) mg/dL Glucose (74-99) mg/dL POC Glucose (mg/dL) 254 H 147 H 321 H (70-110) mg/dL 07/13/24 07/13/24 07/13/24 Range/Units 09:14 09:14 11:48 WBC 3.5 L (3.8-10.6) k/uL RBC 3.20 L (3.80-5.40) m/uL Hgb 9.8 L D (11.4-16.0) gm/dL Hct 30.3 L (34.0-46.0) % RDW 15.6 H (11.5-15.5) % Lymphocytes # 0.9 L (1.0-4.8) k/uL Sodium 131 L (137-145) mmol/L BUN 22 H (7-17) mg/dL Creatinine 1.69 H (0.52-1.04) mg/dL Glucose 234 H (74-99) mg/dL POC Glucose (mg/dL) 295 H (70-110) mg/dL Assessment and Plan Assessment: Acute hypoxemic respiratory failure, multifactorial, secondary to missed hemodialysis, fluid overload, and acute systolic CHF exacerbation Hypervolemic hyponatremia Hyperkalemia, potassium 5.7, improved currently 4.5 Bilateral pleural effusions, with history of right-sided thoracentesis at outside facility History of multivessel coronary artery disease status post four-vessel coronary artery bypass grafting on 02/26/2024 History of a non-ST elevation TN History of ischemic cardiomyopathy, with an ejection fraction estimated at 20 to 25%, as well as, moderate to severe mitral valve regurgitation History of COVID-19 infection, treated outpatient facility, approximately 1 month ago End-stage renal disease, normally maintained on hemodialysis, on a MWF schedule Chronic obstructive pulmonary disease, stable Diabetes mellitus type 1 History of hyperlipidemia History of hypertension History of CVA/TIA History of hypothyroidism History of fibromyalgia History of GERD Former tobacco smoker, quit smoking in December 2023 Plan: The patient was seen and evaluated Labs and medications reviewed Receiving hemodialysis today Home once cleared by nephrology Evaluate for possible home oxygen I have personally seen and examined the patient, performed the documentation and the assessment and plan as written. Number of minutes spent on the visit: 10.
[2024-07-13 16:47] LABS: Glucose,Whole Blood 85 mg/dL (70-110)
--- NOTE | 2024-07-13 17:20 | P.PN ---
Subjective Progress Note Date: 07/13/24 No new complaints. Pt reports improvement in breathing, but still very short of breath with minimal exertion. Gen: In NAD, non-toxic HEENT: normocephalic, atraumatic, hearing acuity is intant, mucous membranes moist CVS: perfusing all extremities well, no pitting edema, Respiratory: symmetric chest expansion, no accessory muscle use, GI: soft, NTTP, ND, : no suprapubic tenderness, no CVA tenderness MSK/Derm: no rashes, cyanosis Neuro: CN II-XII intact, no motor weakness, Hospital course: Hospital Course: 59-year-old female with history of HFrEF, EF around 20%, ESRD on hemodialysis, COPD, type 2 diabetes, CAD status post CABG, dyslipidemia, GERD, hypothyroidism, anxiety/depression presenting with acute hypoxic respiratory failure secondary to hypervolemia, CHF exacerbation and ESRD requiring hemodialysis. ED workup revealed proBNP 51386, troponin 1 <0.012 and chest x-ray that shows pulmonary vascular congestion with small bilateral pleural effusion similar to prior on 07/05/2024. In the ED she was treated with Dilaudid, DuoNebs and 0.9 normal saline. Vitals: T97.3F, P 85 bpm, RR 16, BP 127/79, O2 sat 98% on room air. Coag: PT 10.3, INR 0.9, APTT 25.3. EKG: Sinus rhythm, rate of 84 bpm, QTc 486 ms, LVH, poor R wave progression. Patient admitted with consultation for pulmonology, and nephrology. Patient currently on IV Lasix. Now getting dialysis, symptoms are improving Assessment and Plan: Active: Acute hypoxic respiratory failure ESRD on hemodialysis Hypervolemic hyponatremia, resolving Acute CHF systolic exacerbation Ischemic cardiomyopathy History of CAD status post CABG COPD not in exacerbation -Continue IV Lasix 60 every 12 hours, monitor electrolytes and renal function -Nephrology note reviewed, continue hemodialysis today -Intake and output, daily weight -Continue to wean oxygen, home O2 evaluation at the time of discharge -Pulmonology also following -Continue aspirin 81 mg, atorvastatin 40 mg, Plavix 75 mg -Continue metoprolol 25 daily -Consider SGLT2 inhibitor and ACEi/ARB Anemia of chronic kidney disease, stable -No active bleeding -Repeat CBC tomorrow Hypertension -Continue hydralazine 25 3 times daily Type 2 diabetes, insulin-dependent -Continue Lantus 14 units daily -Sliding scale insulin ACH S, monitor for hypoglycemia Hypothyroidism -Synthroid 176 mcg daily DVT ppx: Subcu heparin Code status: FC Anticipated discharge place: Pending clinical course Anticipated discharge time: Pending clinical course Objective - Vital Signs Vital signs: Vital Signs Temp 98.3 F 07/13/24 13:15 Pulse 76 07/13/24 16:01 Resp 17 07/13/24 13:15 BP 105/58 07/13/24 13:15 Pulse Ox 96 07/13/24 15:53 FiO2 Intake & Output 07/12/24 07/13/24 07/13/24 18:59 06:59 18:59 Intake Total 900 Output Total 6500 Balance -5600 Weight 71.5 kg Intake: Hemodialysis 900 Output: Hemodialysis 3700 Hemodialysis Net Amount 2800 Other: Voiding Method Indwelling Catheter - Labs CBC & Chem 7: 07/13/24 09:14 07/13/24 09:14 Labs: Abnormal Lab Results - Last 24 Hours (Table) 07/12/24 07/13/24 07/13/24 Range/Units 20:40 05:51 09:14 WBC 3.5 L (3.8-10.6) k/uL RBC 3.20 L (3.80-5.40) m/uL Hgb 9.8 L D (11.4-16.0) gm/dL Hct 30.3 L (34.0-46.0) % RDW 15.6 H (11.5-15.5) % Lymphocytes # 0.9 L (1.0-4.8) k/uL Sodium (137-145) mmol/L BUN (7-17) mg/dL Creatinine (0.52-1.04) mg/dL Glucose (74-99) mg/dL POC Glucose (mg/dL) 147 H 321 H (70-110) mg/dL 07/13/24 07/13/24 Range/Units 09:14 11:48 WBC (3.8-10.6) k/uL RBC (3.80-5.40) m/uL Hgb (11.4-16.0) gm/dL Hct (34.0-46.0) % RDW (11.5-15.5) % Lymphocytes # (1.0-4.8) k/uL Sodium 131 L (137-145) mmol/L BUN 22 H (7-17) mg/dL Creatinine 1.69 H (0.52-1.04) mg/dL Glucose 234 H (74-99) mg/dL POC Glucose (mg/dL) 295 H (70-110) mg/dL
[2024-07-13 21:02] LABS: Glucose,Whole Blood 209 mg/dL (70-110)
[2024-07-14 00:35] LABS: Glucose,Whole Blood 145 mg/dL (70-110)
[2024-07-14 05:53] LABS: Glucose,Whole Blood 279 mg/dL (70-110)
[2024-07-14 09:16] LABS: Basophils # (A) 0.04 X 10*3/uL (0.00-0.10); Basophils % (A) 1.1 %; Eosinophils # (A) 0.24 X 10*3/uL (0.04-0.35); Eosinophils % (A) 6.4 %; HCT 27.9 % (37.2-46.3); HGB 8.7 g/dL (12.0-15.0); Lymphocytes # (A) 1.09 X 10*3/uL (0.90-5.00); Lymphocytes % (A) 29.2 %; MCH 29.8 pg (27.0-32.0); MCHC 31.2 g/dL (32.0-37.0); MCV 95.5 FL (80.0-97.0); Mean Platelet Volume 9.9 FL (9.5-12.2); Monocytes # (A) 0.39 X 10*3/uL (0.20-1.00); Monocytes % (A) 10.5 %; NRBC Per 100 WBC 0 X 10*3/uL (0.00-0.01); Neutrophils # (A) 1.95 X 10*3/uL (1.80-7.70); Neutrophils % (A) 52.3 %; Platelet Count 208 X 10*3/uL (140-440); RBC 2.92 X 10*6/uL (4.10-5.20); RDW 15.6 % (11.5-14.5); WBC 3.73 X 10*3/uL (4.50-10.00)
[2024-07-14 10:14] LABS: Magnesium 1.7 mg/dL (1.5-2.4)
[2024-07-14 10:29] LABS: BUN/Creat Ratio 8.69 Ratio (12.00-20.00); Blood Urea Nitrogen 13.9 mg/dL (9.0-27.0); Calcium 8.1 mg/dL (8.7-10.3); Carbon Dioxide 27.3 mmol/L (21.6-31.8); Chloride 100 mmol/L (96-109); Glucose 173 mg/dL (70-110); Potassium 3.9 mmol/L (3.5-5.5); Sodium 134 mmol/L (135-145)
--- NOTE | 2024-07-14 10:36 | P.PN ---
Subjective Progress Note Date: 07/14/24 No new complaints today. Gen: In NAD, non-toxic HEENT: normocephalic, atraumatic, hearing acuity is intant, mucous membranes moist CVS: perfusing all extremities well, no pitting edema, Respiratory: symmetric chest expansion, no accessory muscle use, GI: soft, NTTP, ND, : no suprapubic tenderness, no CVA tenderness MSK/Derm: no rashes, cyanosis Neuro: CN II-XII intact, no motor weakness, Hospital Course: 59-year-old female with history of HFrEF, EF around 20%, ESRD on hemodialysis, COPD, type 2 diabetes, CAD status post CABG, dyslipidemia, GERD, hypothyroidism, anxiety/depression presenting with acute hypoxic respiratory failure secondary to hypervolemia, CHF exacerbation and ESRD requiring hemodialysis. ED workup revealed proBNP 42097, troponin 1 <0.012 and chest x-ray that shows pulmonary vascular congestion with small bilateral pleural effusion similar to prior on 07/05/2024. In the ED she was treated with Dilaudid, DuoNebs and 0.9 normal saline. Vitals: T97.3F, P 85 bpm, RR 16, BP 127/79, O2 sat 98% on room air. Coag: PT 10.3, INR 0.9, APTT 25.3. EKG: Sinus rhythm, rate of 84 bpm, QTc 486 ms, LVH, poor R wave progression. Patient admitted with consultation for pulmonology, and nephrology. Patient currently on IV Lasix. Now getting dialysis, symptoms are improving Assessment and Plan: Active: Acute hypoxic respiratory failure ESRD on hemodialysis Hypervolemic hyponatremia, resolving Acute CHF systolic exacerbation Ischemic cardiomyopathy History of CAD status post CABG COPD not in exacerbation -Continue IV Lasix 60 every 12 hours, monitor electrolytes and renal function -Nephrology note reviewed, continue hemodialysis today -Intake and output, daily weight -Continue to wean oxygen, home O2 evaluation at the time of discharge -Pulmonology also following -Continue aspirin 81 mg, atorvastatin 40 mg, Plavix 75 mg -Continue metoprolol 25 daily -Consider SGLT2 inhibitor and ACEi/ARB Anemia of chronic kidney disease, stable -No active bleeding -Repeat CBC tomorrow Hypertension -Continue hydralazine 25 3 times daily Type 2 diabetes, insulin-dependent -Continue Lantus 14 units daily -Sliding scale insulin ACH S, monitor for hypoglycemia Hypothyroidism -Synthroid 176 mcg daily DVT ppx: Subcu heparin Code status: FC Anticipated discharge place: Pending clinical course Anticipated discharge time: Pending clinical course Objective - Vital Signs Vital signs: Vital Signs Temp 98.4 F 07/14/24 06:59 Pulse 77 07/14/24 06:59 Resp 17 07/14/24 06:59 BP 121/72 07/14/24 06:59 Pulse Ox 96 07/14/24 08:06 FiO2 Intake & Output 07/13/24 07/14/24 07/14/24 18:59 06:59 18:59 Intake Total 400 Output Total 6400 Balance -6000 Intake: Hemodialysis 400 Output: Hemodialysis 3400 Hemodialysis Net Amount 3000 - Labs CBC & Chem 7: 07/14/24 03:11 07/14/24 03:11 Labs: Abnormal Lab Results - Last 24 Hours (Table) 07/13/24 07/13/24 07/14/24 Range/Units 11:48 20:59 00:34 WBC (4.50-10.00) X 10*3/uL RBC (4.10-5.20) X 10*6/uL Hgb (12.0-15.0) g/dL Hct (37.2-46.3) % MCHC (32.0-37.0) g/dL RDW (11.5-14.5) % Sodium (135-145) mmol/L Creatinine (0.6-1.5) mg/dL Est GFR (CKD-EPI) (>=60) BUN/Creatinine Ratio (12.00-20.00) Ratio Glucose (70-110) mg/dL POC Glucose (mg/dL) 295 H 209 H 145 H (70-110) mg/dL Calcium (8.7-10.3) mg/dL 07/14/24 07/14/24 07/14/24 Range/Units 03:11 03:11 05:51 WBC 3.73 L (4.50-10.00) X 10*3/uL RBC 2.92 L (4.10-5.20) X 10*6/uL Hgb 8.7 L (12.0-15.0) g/dL Hct 27.9 L (37.2-46.3) % MCHC 31.2 L (32.0-37.0) g/dL RDW 15.6 H (11.5-14.5) % Sodium 134 L (135-145) mmol/L Creatinine 1.6 H (0.6-1.5) mg/dL Est GFR (CKD-EPI) 37 L (>=60) BUN/Creatinine Ratio 8.69 L (12.00-20.00) Ratio Glucose 173 H (70-110) mg/dL POC Glucose (mg/dL) 279 H (70-110) mg/dL Calcium 8.1 L (8.7-10.3) mg/dL
[2024-07-14 11:33] LABS: Glucose,Whole Blood 252 mg/dL (70-110)
--- NOTE | 2024-07-14 11:33 | P.PN ---
Subjective patient is seen for follow-up for end-stage renal disease. status post hemodialysis yesterday with UF of 3.0 L Volume status has improved Objective - Vital Signs Vital signs: Vital Signs Temp 98.4 F 07/14/24 06:59 Pulse 74 07/14/24 11:29 Resp 17 07/14/24 06:59 BP 121/72 07/14/24 06:59 Pulse Ox 96 07/14/24 08:06 FiO2 Intake & Output 07/13/24 07/14/24 07/14/24 18:59 06:59 18:59 Intake Total 400 Output Total 6400 Balance -6000 Intake: Hemodialysis 400 Output: Hemodialysis 3400 Hemodialysis Net Amount 3000 - Exam Patient is awake, comfortable, no acute distress. Examination of the heart S1 and S2 Examination of the lungs bilateral breath sounds are heard Abdomen is soft nontender Examination of lower extremity shows edema 2-3+ bilaterally worse on the left leg. - Labs CBC & Chem 7: 07/14/24 03:11 07/14/24 03:11 Labs: Abnormal Lab Results - Last 24 Hours (Table) 07/13/24 07/13/24 07/14/24 Range/Units 11:48 20:59 00:34 WBC (4.50-10.00) X 10*3/uL RBC (4.10-5.20) X 10*6/uL Hgb (12.0-15.0) g/dL Hct (37.2-46.3) % MCHC (32.0-37.0) g/dL RDW (11.5-14.5) % Sodium (135-145) mmol/L Creatinine (0.6-1.5) mg/dL Est GFR (CKD-EPI) (>=60) BUN/Creatinine Ratio (12.00-20.00) Ratio Glucose (70-110) mg/dL POC Glucose (mg/dL) 295 H 209 H 145 H (70-110) mg/dL Calcium (8.7-10.3) mg/dL 07/14/24 07/14/24 07/14/24 Range/Units 03:11 03:11 05:51 WBC 3.73 L (4.50-10.00) X 10*3/uL RBC 2.92 L (4.10-5.20) X 10*6/uL Hgb 8.7 L (12.0-15.0) g/dL Hct 27.9 L (37.2-46.3) % MCHC 31.2 L (32.0-37.0) g/dL RDW 15.6 H (11.5-14.5) % Sodium 134 L (135-145) mmol/L Creatinine 1.6 H (0.6-1.5) mg/dL Est GFR (CKD-EPI) 37 L (>=60) BUN/Creatinine Ratio 8.69 L (12.00-20.00) Ratio Glucose 173 H (70-110) mg/dL POC Glucose (mg/dL) 279 H (70-110) mg/dL Calcium 8.1 L (8.7-10.3) mg/dL Assessment and Plan Assessment: 1. End-stage renal disease maintained on hemodialysis on Monday schedule. Patient was started on dialysis in March of this year. She remains dialysis dependent mostly due to volume overload. 2. Volume overloadon my improving 3. Hyperkalemia associated with end-stage renal disease and missing dialysis 4. History of coronary artery disease 5. Acute hypoxic respiratory failure secondary to volume overload and CHF 6. Chronic CHF with decreased ejection fraction, ejection fraction 15 to 20% on echocardiogram in February 2024 Plan: Hemodialysis in a.m. Add Aranesp Continue IV Lasix until discharge Accurate I's and O's
--- NOTE | 2024-07-14 13:16 | P.PN ---
Subjective Progress Note Date: 07/14/24 Patient is a 59-year-old white female with past medical history significant for coronary artery disease status post CABG in Feb, 2024. She also has history of end-stage renal disease (receives hemodialysis on a Monday, Monday, Monday schedule), severe ischemic cardiomyopathy, COPD, diabetes mellitus, hypertension, hyperlipidemia, hypothyroidism, fibromyalgia. She is a former tobacco smoker, quitting in December,. Of note, patient recently treated for COVID traction at [facility] approximately 1 month ago, she reportedly ended up being transferred to [facility]. She had a pleural effusion and underwent previous thoracentesis on the right side during her hospitalization. Of note, patient had a recent hospitalization at our facility on 07/01/2024 with similar presentation. At that time, she had missed hemodialysis, presented with fluid overload. She was discharged home on 07/05/2024. She returns to the emergency department yesterday afternoon with worsening shortness of breath over the last couple days. She again has missed hemodialysis on Monday. Her last treatment was last Monday. She states that she was too short of breath and weak to make it to her appointments. She has been using a friends supplemental oxygen. States that she does not have oxygen tanks of her own. Previously did not qualify for home O2. Patient appears to be in a fluid positive status. She has pitting lower extremity edema. Chest x- ray demonstrates similar fluid overload state. There is cardiomegaly, bilateral pleural effusions, and mild pulmonary vascular congestion. No obvious focal consolidations or pneumonia. She states that she does have a lingering cough, that has been persistent since her COVID infection. Not particularly productive. Denies any fevers or chills. Denies any chest pain. Denies any hemoptysis. Occasionally wheezing and associated shortness of breath reported, but not currently. Does have history of COPD. CBC: WBC count 4.6, hemoglobin 11.4, hematocrit 35.6, platelets 290. CMP: Sodium 129, potassium 5.7, chloride 96, serum bicarb 24, BUN 34, creatinine 2.09, glucose 280. Troponin less than 0.012. NT proBNP significantly elevated at 24,200. EKG: Normal sinus rhythm, rate 84 bpm, with LBBB pattern, similar to prior EKG, no obvious acute ischemic changes. She is currently receiving Lasix 40 mg twice daily. She is not anuric. Voids approximately 2 times per day. Plan is for inpatient hemodialysis. Currently resting comfortably on 3 L/min nasal cannula. SpO2 is 95%. No conversational dyspnea or accessory muscle use. She wants to see if she qualifies for home oxygen again. The patient is seen today July 11, 2024 in follow-up on the regular medical floor. She is currently sitting up in bed. Awake and alert in no acute distress. Currently receiving hemodialysis. She is maintaining saturations in the upper 90s on 3 L/min per nasal cannula. She is afebrile. Hemodynamically stable. White count 3.0. Hemoglobin 8.8. Platelets 235. Sodium 133. Potassium 4.3. Bicarb 26. BUN 25. Creatinine 1.8. Glucose 144. Procalcitonin was negative at 0.15. She remains on Symbicort, DuoNeb and elations. Heparin for DVT prophylaxis. She is continued on IV diuretics. Currently in a -6.1 L balance. The patient is seen today July 12, 2024 in follow-up on the regular medical floor. She is awake and alert in no acute distress. Sitting up in bed. Denies any worsening shortness of breath, cough or congestion. White count 3.8. Hemoglobin 9.1. Platelets 245. Sodium 134. Potassium 4.6. Bicarb 27. BUN 18. Creatinine 2.0. Glucose 233. She did have 3 L removed during hemodialysis yesterday and another 3 L removed today. Chest x-ray showing improvement in the fluid volume overload. She is maintaining O2 saturations in the 90s on room air. She has been afebrile. Hemodynamically stable. The patient is seen today July 13, 2024 in follow-up on the regular medical floor. She is currently sitting up in a chair at the bedside. Awake and alert in no acute distress. She is maintaining good O2 saturations in the 90s on 3 L/min per nasal cannula. Chest x-ray is showing improvement in the fluid volume overload. Plan is for hemodialysis today. Possible home after that. White count 3.5. Hemoglobin 9.8. Platelets 246. Sodium 131. Potassium 4.5. Bicarb 26. BUN 22. Creatinine 1.69. Glucose 234. She is continued on DuoNeb inhalations, Symbicort. Heparin for DVT prophylaxis. Remains on IV diuretics. Currently in a -5.6 L balance. 2.8 L removed from dialysis. The patient is seen today July 14, 2024 in follow-up on the regular medical floor. She is awake and alert in no acute distress. Sitting up in a chair. Maintaining O2 saturations in the 90s on room air. White count 3.7. Hemoglobin 8.7. Platelets 208. Sodium 134. Potassium 3.9. Bicarb 27. BUN 14. Cre atinine 1.6. Glucose 173. She did undergo hemodialysis yesterday with 3 L removed. Fluid volume status has improved. Is for hemodialysis tomorrow. She remains on IV diuretics. Heparin for DVT prophylaxis. Continued on bronchodilators. Objective - Vital Signs Vital signs: Vital Signs Temp 98.4 F 07/14/24 06:59 Pulse 76 07/14/24 11:40 Resp 17 07/14/24 06:59 BP 121/72 07/14/24 06:59 Pulse Ox 96 07/14/24 08:06 FiO2 Intake & Output 07/13/24 07/14/24 07/14/24 18:59 06:59 18:59 Intake Total 400 Output Total 6400 Balance -6000 Intake: Hemodialysis 400 Output: Hemodialysis 3400 Hemodialysis Net Amount 3000 Other: Voiding Method Toilet - Exam GENERAL EXAM: Alert, pleasant 59-year-old female, up in a chair, on room air, comfortable in no apparent distress. HEAD: Normocephalic and atraumatic EYES: Normal reaction of pupils, equal size. NOSE: Clear with pink turbinates. THROAT: No erythema or exudates. NECK: No masses, no JVD. CHEST: No chest wall deformity. Right chest tunneled HD cath LUNGS: Equal air entry with diminished bibasilar lung sounds. No wheezes, rhonchi, crackles. CVS: S1 and S2 normal with no audible murmur, regular rhythm. No extra heart sounds ABDOMEN: No hepatosplenomegaly, active bowel sounds, no guarding or rigidity. SPINE: No scoliosis or deformity SKIN: No rashes. Left lower extremity shallow ulceration with clear discharge. CENTRAL NERVOUS SYSTEM: No focal deficits, tone is normal in all 4 extremities. EXTREMITIES: Bilateral lower extremity 2+ pitting edema. Peripheral pulses are intact. - Labs CBC & Chem 7: 07/14/24 03:11 07/14/24 03:11 Labs: Abnormal Lab Results - Last 24 Hours (Table) 07/13/24 07/14/24 07/14/24 Range/Units 20:59 00:34 03:11 WBC 3.73 L (4.50-10.00) X 10*3/uL RBC 2.92 L (4.10-5.20) X 10*6/uL Hgb 8.7 L (12.0-15.0) g/dL Hct 27.9 L (37.2-46.3) % MCHC 31.2 L (32.0-37.0) g/dL RDW 15.6 H (11.5-14.5) % Sodium (135-145) mmol/L Creatinine (0.6-1.5) mg/dL Est GFR (CKD-EPI) (>=60) BUN/Creatinine Ratio (12.00-20.00) Ratio Glucose (70-110) mg/dL POC Glucose (mg/dL) 209 H 145 H (70-110) mg/dL Calcium (8.7-10.3) mg/dL 07/14/24 07/14/24 07/14/24 Range/Units 03:11 05:51 11:31 WBC (4.50-10.00) X 10*3/uL RBC (4.10-5.20) X 10*6/uL Hgb (12.0-15.0) g/dL Hct (37.2-46.3) % MCHC (32.0-37.0) g/dL RDW (11.5-14.5) % Sodium 134 L (135-145) mmol/L Creatinine 1.6 H (0.6-1.5) mg/dL Est GFR (CKD-EPI) 37 L (>=60) BUN/Creatinine Ratio 8.69 L (12.00-20.00) Ratio Glucose 173 H (70-110) mg/dL POC Glucose (mg/dL) 279 H 252 H (70-110) mg/dL Calcium 8.1 L (8.7-10.3) mg/dL Assessment and Plan Assessment: Acute hypoxemic respiratory failure, multifactorial, secondary to missed hemodialysis, fluid overload, and acute systolic CHF exacerbation Hypervolemic hyponatremia Hyperkalemia, potassium 5.7, improved currently 3.9 Bilateral pleural effusions, with history of right-sided thoracentesis at outside facility History of multivessel coronary artery disease status post four-vessel coronary artery bypass grafting on 02/26/2024 History of a non-ST elevation [place] History of ischemic cardiomyopathy, with an ejection fraction estimated at 20 to 25%, as well as, moderate to severe mitral valve regurgitation History of COVID-19 infection, treated outpatient facility, approximately 1 month ago End-stage renal disease, normally maintained on hemodialysis, on a MWF schedule Chronic obstructive pulmonary disease, stable Diabetes mellitus type 1 History of hyperlipidemia History of hypertension History of CVA/TIA History of hypothyroidism History of fibromyalgia History of GERD Former tobacco smoker, quit smoking in December 2023 Plan: The patient was seen and evaluated Labs and medications reviewed Isabella on IV diuretics Plan is for hemodialysis tomorrow Home once cleared by nephrology Evaluate for possible home oxygen Continue bronchodilators Heparin for DVT prophylaxis I have personally seen and examined the patient, performed the documentation and the assessment and plan as written. Number of minutes spent on the visit: 10.
[2024-07-14 16:28] LABS: Glucose,Whole Blood 201 mg/dL (70-110)
[2024-07-14] MEDS: DARBEPOETIN ALFA 60 MCG/0.3 ML SYRINGE SQ SCH (17:52)
[2024-07-14 21:07] LABS: Glucose,Whole Blood 124 mg/dL (70-110)
[2024-07-15 05:42] LABS: Glucose,Whole Blood 416 mg/dL (70-110)
[2024-07-15 06:16] LABS: Glucose,Whole Blood 416 mg/dL (70-110)
--- NOTE | 2024-07-15 10:16 | P.PN ---
Subjective Patient is seen in follow-up for end-stage renal disease. She is maintained on hemodialysis on Monday schedule. No active complaints. On 2 L nasal cannula. Hemodynamically stable. Vital signs are stable. General: No acute distress. HEENT: Head exam is unremarkable. LUNGS: No audible rhonchi or wheezes. HEART: Rate and Rhythm are regular. ABDOMEN: Nontender. EXTREMITITES: 2+ edema. Objective - Vital Signs Vital signs: Vital Signs Temp 97.8 F 07/15/24 08:45 Pulse 80 07/15/24 09:29 Resp 17 07/15/24 08:45 BP 106/63 07/15/24 08:45 Pulse Ox 93 L 07/15/24 08:45 FiO2 Intake & Output 07/14/24 07/15/24 07/15/24 18:59 06:59 18:59 Intake Total 240 Balance 240 Weight 70.5 kg Intake: Oral 240 Other: Voiding Method Toilet Toilet - Labs CBC & Chem 7: 07/14/24 03:11 07/14/24 03:11 Labs: Abnormal Lab Results - Last 24 Hours (Table) 07/14/24 07/14/24 07/14/24 Range/Units 03:11 11:31 16:27 Sodium 134 L (135-145) mmol/L Creatinine 1.6 H (0.6-1.5) mg/dL Est GFR (CKD-EPI) 37 L (>=60) BUN/Creatinine Ratio 8.69 L (12.00-20.00) Ratio Glucose 173 H (70-110) mg/dL POC Glucose (mg/dL) 252 H 201 H (70-110) mg/dL Calcium 8.1 L (8.7-10.3) mg/dL 07/14/24 07/15/24 07/15/24 Range/Units 21:03 05:41 06:12 Sodium (135-145) mmol/L Creatinine (0.6-1.5) mg/dL Est GFR (CKD-EPI) (>=60) BUN/Creatinine Ratio (12.00-20.00) Ratio Glucose (70-110) mg/dL POC Glucose (mg/dL) 124 H 416 H 416 H (70-110) mg/dL Calcium (8.7-10.3) mg/dL Assessment and Plan Plan: Assessment: 1. End-stage renal disease maintained on hemodialysis on Monday schedule. 2. Volume overload. 3. Coronary artery disease status post CABG. 4. Acute on chronic systolic CHF ejection fraction of 20 to 25% with moderate to severe mitral regurgitation. 5. Anemia of chronic kidney disease maintained on Aranesp. 6. Diabetes mellitus. Plan: Hemodialysis today. Challenge ultrafiltration. Maintain IV Lasix. Add 1500 cc fluid restriction. Stressed compliance with medications and hemodialysis treatments outpatient. Life-threatening effects of noncompliance, including , have been discussed with patient multiple times.
[2024-07-15 11:33] LABS: Glucose,Whole Blood 232 mg/dL (70-110)
--- NOTE | 2024-07-15 13:32 | P.PN ---
Subjective Progress Note Date: 07/15/24 Patient is a 59-year-old white female with past medical history significant for coronary artery disease status post CABG in Feb, 2024. She also has history of end-stage renal disease (receives hemodialysis on a Monday, Monday, Monday schedule), severe ischemic cardiomyopathy, COPD, diabetes mellitus, hypertension, hyperlipidemia, hypothyroidism, fibromyalgia. She is a former tobacco smoker, quitting in December,. Of note, patient recently treated for COVID traction at [facility] approximately 1 month ago, she reportedly ended up being transferred to [facility]. She had a pleural effusion and underwent previous thoracentesis on the right side during her hospitalization. Of note, patient had a recent hospitalization at our facility on 07/01/2024 with similar presentation. At that time, she had missed hemodialysis, presented with fluid overload. She was discharged home on 07/05/2024. She returns to the emergency department yesterday afternoon with worsening shortness of breath over the last couple days. She again has missed hemodialysis on Monday. Her last treatment was last Monday. She states that she was too short of breath and weak to make it to her appointments. She has been using a friends supplemental oxygen. States that she does not have oxygen tanks of her own. Previously did not qualify for home O2. Patient appears to be in a fluid positive status. She has pitting lower extremity edema. Chest x- ray demonstrates similar fluid overload state. There is cardiomegaly, bilateral pleural effusions, and mild pulmonary vascular congestion. No obvious focal consolidations or pneumonia. She states that she does have a lingering cough, that has been persistent since her COVID infection. Not particularly productive. Denies any fevers or chills. Denies any chest pain. Denies any hemoptysis. Occasionally wheezing and associated shortness of breath reported, but not currently. Does have history of COPD. CBC: WBC count 4.6, hemoglobin 11.4, hematocrit 35.6, platelets 290. CMP: Sodium 129, potassium 5.7, chloride 96, serum bicarb 24, BUN 34, creatinine 2.09, glucose 280. Troponin less than 0.012. NT proBNP significantly elevated at 24,200. EKG: Normal sinus rhythm, rate 84 bpm, with LBBB pattern, similar to prior EKG, no obvious acute ischemic changes. She is currently receiving Lasix 40 mg twice daily. She is not anuric. Voids approximately 2 times per day. Plan is for inpatient hemodialysis. Currently resting comfortably on 3 L/min nasal cannula. SpO2 is 95%. No conversational dyspnea or accessory muscle use. She wants to see if she qualifies for home oxygen again. The patient is seen today July 11, 2024 in follow-up on the regular medical floor. She is currently sitting up in bed. Awake and alert in no acute distress. Currently receiving hemodialysis. She is maintaining saturations in the upper 90s on 3 L/min per nasal cannula. She is afebrile. Hemodynamically stable. White count 3.0. Hemoglobin 8.8. Platelets 235. Sodium 133. Potassium 4.3. Bicarb 26. BUN 25. Creatinine 1.8. Glucose 144. Procalcitonin was negative at 0.15. She remains on Symbicort, DuoNeb and elations. Heparin for DVT prophylaxis. She is continued on IV diuretics. Currently in a -6.1 L balance. The patient is seen today July 12, 2024 in follow-up on the regular medical floor. She is awake and alert in no acute distress. Sitting up in bed. Denies any worsening shortness of breath, cough or congestion. White count 3.8. Hemoglobin 9.1. Platelets 245. Sodium 134. Potassium 4.6. Bicarb 27. BUN 18. Creatinine 2.0. Glucose 233. She did have 3 L removed during hemodialysis yesterday and another 3 L removed today. Chest x-ray showing improvement in the fluid volume overload. She is maintaining O2 saturations in the 90s on room air. She has been afebrile. Hemodynamically stable. The patient is seen today July 13, 2024 in follow-up on the regular medical floor. She is currently sitting up in a chair at the bedside. Awake and alert in no acute distress. She is maintaining good O2 saturations in the 90s on 3 L/min per nasal cannula. Chest x-ray is showing improvement in the fluid volume overload. Plan is for hemodialysis today. Possible home after that. White count 3.5. Hemoglobin 9.8. Platelets 246. Sodium 131. Potassium 4.5. Bicarb 26. BUN 22. Creatinine 1.69. Glucose 234. She is continued on DuoNeb inhalations, Symbicort. Heparin for DVT prophylaxis. Remains on IV diuretics. Currently in a -5.6 L balance. 2.8 L removed from dialysis. The patient is seen today July 14, 2024 in follow-up on the regular medical floor. She is awake and alert in no acute distress. Sitting up in a chair. Maintaining O2 saturations in the 90s on room air. White count 3.7. Hemoglobin 8.7. Platelets 208. Sodium 134. Potassium 3.9. Bicarb 27. BUN 14. Cre atinine 1.6. Glucose 173. She did undergo hemodialysis yesterday with 3 L removed. Fluid volume status has improved. Is for hemodialysis tomorrow. She remains on IV diuretics. Heparin for DVT prophylaxis. Continued on bronchodilators. The patient is seen today July 15, 2024 in follow-up on the regular medical floor. She is sitting up in a chair at the bedside. Awake and alert in no acu te distress. Maintaining O2 saturations in the 90s on 2 L/min per nasal cannula. No IV fluids. She is due for hemodialysis again today. She remains on IV diuretics. She has been initiated on a 1500 cc fluid restriction per nephrology. Glucose 232. She remains on DuoNeb inhalations, Symbicort. Heparin for DVT prophylaxis. Objective - Vital Signs Vital signs: Vital Signs Temp 97.8 F 07/15/24 08:45 Pulse 78 07/15/24 12:34 Resp 17 07/15/24 08:45 BP 106/63 07/15/24 08:45 Pulse Ox 93 L 07/15/24 08:45 FiO2 Intake & Output 07/14/24 07/15/24 07/15/24 18:59 06:59 18:59 Intake Total 240 Balance 240 Weight 70.5 kg Intake: Oral 240 Other: Voiding Method Toilet Toilet Toilet - Exam GENERAL EXAM: Alert, 59-year-old female, up in a chair, on 2 L nasal cannula, comfortable in no apparent distress. HEAD: Normocephalic and atraumatic EYES: Normal reaction of pupils, equal size. NOSE: Clear with pink turbinates. THROAT: No erythema or exudates. NECK: No masses, no JVD. CHEST: No chest wall deformity. Right chest tunneled HD cath LUNGS: Equal air entry with diminished bibasilar lung sounds. No wheezes, rhonchi, crackles. CVS: S1 and S2 normal with no audible murmur, regular rhythm. No extra heart sounds ABDOMEN: No hepatosplenomegaly, active bowel sounds, no guarding or rigidity. SPINE: No scoliosis or deformity SKIN: No rashes. Left lower extremity shallow ulceration with clear discharge. CENTRAL NERVOUS SYSTEM: No focal deficits, tone is normal in all 4 extremities. EXTREMITIES: Bilateral lower extremity 2+ pitting edema. Peripheral pulses are intact. - Labs CBC & Chem 7: 07/14/24 03:11 07/14/24 03:11 Labs: Abnormal Lab Results - Last 24 Hours (Table) 07/14/24 07/14/24 07/15/24 Range/Units 16:27 21:03 05:41 POC Glucose (mg/dL) 201 H 124 H 416 H (70-110) mg/dL 07/15/24 07/15/24 Range/Units 06:12 11:31 POC Glucose (mg/dL) 416 H 232 H (70-110) mg/dL Assessment and Plan Assessment: Acute hypoxemic respiratory failure, multifactorial, secondary to missed he modialysis, fluid overload, and acute systolic CHF exacerbation Hypervolemic hyponatremia Hyperkalemia, potassium 5.7, improved currently 3.9 Bilateral pleural effusions, with history of right-sided thoracentesis at outside facility History of multivessel coronary artery disease status post four-vessel coronary artery bypass grafting on 02/26/2024 History of a non-ST elevation [place] History of ischemic cardiomyopathy, with an ejection fraction estimated at 20 to 25%, as well as, moderate to severe mitral valve regurgitation History of COVID-19 infection, treated outpatient facility, approximately 1 month ago End-stage renal disease, normally maintained on hemodialysis, on a MWF schedule Chronic obstructive pulmonary disease, stable Diabetes mellitus type 1 History of hyperlipidemia History of hypertension History of CVA/TIA History of hypothyroidism History of fibromyalgia History of GERD Former tobacco smoker, quit smoking in December 2023 Plan: The patient was seen and evaluated Labs and medications reviewed Remains on IV diuretics Plan is for hemodialysis today Evaluate for possible home oxygen I have personally seen and examined the patient, performed the documentation and the assessment and plan as written. Number of minutes spent on the visit: 10.
[2024-07-15 16:25] LABS: Glucose,Whole Blood 190 mg/dL (70-110)
--- NOTE | 2024-07-15 17:20 | P.PN ---
Subjective Progress Note Date: 07/15/24 No new complaints today. Pending clearance from specialists prior to discharge - anticipate tomorrow AM. Home oxygen eval pending as well. Gen: In NAD, non-toxic HEENT: normocephalic, atraumatic, hearing acuity is intant, mucous membranes moist CVS: perfusing all extremities well, no pitting edema, Respiratory: symmetric chest expansion, no accessory muscle use, GI: soft, NTTP, ND, : no suprapubic tenderness, no CVA tenderness MSK/Derm: no rashes, cyanosis Neuro: CN II-XII intact, no motor weakness, Hospital Course: 59-year-old female with history of HFrEF, EF around 20%, ESRD on hemodialysis, COPD, type 2 diabetes, CAD status post CABG, dyslipidemia, GERD, hypothyroidism, anxiety/depression presenting with acute hypoxic respiratory failure secondary to hypervolemia, CHF exacerbation and ESRD requiring hemodialysis. ED workup revealed proBNP 22191, troponin 1 <0.012 and chest x-ray that shows pulmonary vascular congestion with small bilateral pleural effusion similar to prior on 07/05/2024. In the ED she was treated with Dilaudid, DuoNebs and 0.9 normal saline. Vitals: T97.3F, P 85 bpm, RR 16, BP 127/79, O2 sat 98% on room air. Coag: PT 10.3, INR 0.9, APTT 25.3. EKG: Sinus rhythm, rate of 84 bpm, QTc 486 ms, LVH, poor R wave progression. Patient admitted with consultation for pulmonology, and nephrology. Patient currently on IV Lasix. Now getting dialysis, symptoms are improving Assessment and Plan: Active: Acute hypoxic respiratory failure ESRD on hemodialysis Hypervolemic hyponatremia, resolving Acute CHF systolic exacerbation Ischemic cardiomyopathy History of CAD status post CABG COPD not in exacerbation -Continue IV Lasix 60 every 12 hours, monitor electrolytes and renal function -Nephrology note reviewed, continue hemodialysis today -Intake and output, daily weight -Continue to wean oxygen, home O2 evaluation at the time of discharge -Pulmonology also following -Continue aspirin 81 mg, atorvastatin 40 mg, Plavix 75 mg -Continue metoprolol 25 daily -Consider SGLT2 inhibitor and ACEi/ARB Anemia of chronic kidney disease, stable -No active bleeding -Repeat CBC tomorrow Hypertension -Continue hydralazine 25 3 times daily Type 2 diabetes, insulin-dependent -Continue Lantus 14 units daily -Sliding scale insulin ACH S, monitor for hypoglycemia Hypothyroidism -Synthroid 176 mcg daily DVT ppx: Subcu heparin Code status: Anticipated discharge place: Pending clinical course Anticipated discharge time: Pending clinical course Objective - Vital Signs Vital signs: Vital Signs Temp 98.6 F 07/15/24 14:15 Pulse 80 07/15/24 16:43 Resp 17 07/15/24 14:15 BP 106/63 07/15/24 14:15 Pulse Ox 95 07/15/24 14:15 FiO2 Intake & Output 07/14/24 07/15/24 07/15/24 18:59 06:59 18:59 Intake Total 240 Balance 240 Weight 70.5 kg Intake: Oral 240 Other: Voiding Method Toilet Toilet Toilet - Labs CBC & Chem 7: 07/14/24 03:11 07/14/24 03:11 Labs: Abnormal Lab Results - Last 24 Hours (Table) 07/14/24 07/15/24 07/15/24 Range/Units 21:03 05:41 06:12 POC Glucose (mg/dL) 124 H 416 H 416 H (70-110) mg/dL 07/15/24 07/15/24 Range/Units 11:31 16:23 POC Glucose (mg/dL) 232 H 190 H (70-110) mg/dL
[2024-07-15 21:39] LABS: Glucose,Whole Blood 183 mg/dL (70-110)
[2024-07-16 06:28] LABS: Glucose,Whole Blood 311 mg/dL (70-110)
[2024-07-16 08:37] LABS: BUN/Creat Ratio 10.62 Ratio (12.00-20.00); Carbon Dioxide 26.7 mmol/L (21.6-31.8); Chloride 95 mmol/L (96-109); Glucose 179 mg/dL (70-110); Magnesium 1.7 mg/dL (1.5-2.4); Sodium 131 mmol/L (135-145)
--- NOTE | 2024-07-16 09:18 | P.PN ---
Subjective Patient is seen in follow-up for end-stage renal disease. She is maintained on hemodialysis on Monday schedule. No active complaints. On 2 L nasal cannula. Hemodynamically stable. Tolerated 3 L ultrafiltration yesterday. Vital signs are stable. General: No acute distress. HEENT: Head exam is unremarkable. On nasal cannula. LUNGS: No audible rhonchi or wheezes. HEART: Rate and Rhythm are regular. ABDOMEN: Nontender. EXTREMITITES: 2+ edema. Objective - Vital Signs Vital signs: Vital Signs Temp 98.2 F 07/16/24 08:00 Pulse 74 07/16/24 08:00 Resp 16 07/16/24 08:00 BP 108/61 07/16/24 08:00 Pulse Ox 97 07/16/24 08:00 FiO2 Intake & Output 07/15/24 07/16/24 07/16/24 18:59 06:59 18:59 Intake Total 500 Output Total 6500 Balance -6000 Weight 70 kg Intake: Hemodialysis 500 Output: Hemodialysis 3500 Hemodialysis Net Amount 3000 Other: Voiding Method Toilet - Labs CBC & Chem 7: 07/14/24 03:11 07/16/24 02:47 Labs: Abnormal Lab Results - Last 24 Hours (Table) 07/15/24 07/15/24 07/15/24 Range/Units 11:31 16:23 21:38 Sodium (135-145) mmol/L Chloride (96-109) mmol/L Creatinine (0.6-1.5) mg/dL Est GFR (CKD-EPI) (>=60) BUN/Creatinine Ratio (12.00-20.00) Ratio Glucose (70-110) mg/dL POC Glucose (mg/dL) 232 H 190 H 183 H (70-110) mg/dL Calcium (8.7-10.3) mg/dL 07/16/24 07/16/24 Range/Units 02:47 06:22 Sodium 131 L (135-145) mmol/L Chloride 95 L (96-109) mmol/L Creatinine 1.6 H (0.6-1.5) mg/dL Est GFR (CKD-EPI) 37 L (>=60) BUN/Creatinine Ratio 10.62 L (12.00-20.00) Ratio Glucose 179 H (70-110) mg/dL POC Glucose (mg/dL) 311 H (70-110) mg/dL Calcium 8.0 L (8.7-10.3) mg/dL Assessment and Plan Plan: Assessment: 1. End-stage renal disease maintained on hemodialysis on Monday schedule. 2. Volume overload. Better with ultrafiltration. 3. Coronary artery disease status post CABG. 4. Acute on chronic systolic CHF ejection fraction of 20 to 25% with moderate to severe mitral regurgitation. 5. Anemia of chronic kidney disease maintained on Aranesp. 6. Diabetes mellitus. Plan: Hemodialysis again today. Challenge ultrafiltration. Stop IV Lasix. Add torsemide 40 mg once daily. Maintain 1500 cc fluid restriction. Stressed compliance with medications and hemodialysis treatments outpatient. Life-threatening effects of noncompliance, including , have been discussed with patient multiple times.
[2024-07-16 11:05] LABS: Glucose,Whole Blood 185 mg/dL (70-110)
--- NOTE | 2024-07-16 13:55 | P.PN ---
Subjective Progress Note Date: 07/16/24 Patient is a 59-year-old white female with past medical history significant for coronary artery disease status post CABG in Feb, 2024. She also has history of end-stage renal disease (receives hemodialysis on a Monday, Monday, Monday schedule), severe ischemic cardiomyopathy, COPD, diabetes mellitus, hypertension, hyperlipidemia, hypothyroidism, fibromyalgia. She is a former tobacco smoker, quitting in December,. Of note, patient recently treated for COVID traction at [facility] approximately 1 month ago, she reportedly ended up being transferred to [facility]. She had a pleural effusion and underwent previous thoracentesis on the right side during her hospitalization. Of note, patient had a recent hospitalization at our facility on 07/01/2024 with similar presentation. At that time, she had missed hemodialysis, presented with fluid overload. She was discharged home on 07/05/2024. She returns to the emergency department yesterday afternoon with worsening shortness of breath over the last couple days. She again has missed hemodialysis on Monday. Her last treatment was last Monday. She states that she was too short of breath and weak to make it to her appointments. She has been using a friends supplemental oxygen. States that she does not have oxygen tanks of her own. Previously did not qualify for home O2. Patient appears to be in a fluid positive status. She has pitting lower extremity edema. Chest x- ray demonstrates similar fluid overload state. There is cardiomegaly, bilateral pleural effusions, and mild pulmonary vascular congestion. No obvious focal consolidations or pneumonia. She states that she does have a lingering cough, that has been persistent since her COVID infection. Not particularly productive. Denies any fevers or chills. Denies any chest pain. Denies any hemoptysis. Occasionally wheezing and associated shortness of breath reported, but not currently. Does have history of COPD. CBC: WBC count 4.6, hemoglobin 11.4, hematocrit 35.6, platelets 290. CMP: Sodium 129, potassium 5.7, chloride 96, serum bicarb 24, BUN 34, creatinine 2.09, glucose 280. Troponin less than 0.012. NT proBNP significantly elevated at 24,200. EKG: Normal sinus rhythm, rate 84 bpm, with LBBB pattern, similar to prior EKG, no obvious acute ischemic changes. She is currently receiving Lasix 40 mg twice daily. She is not anuric. Voids approximately 2 times per day. Plan is for inpatient hemodialysis. Currently resting comfortably on 3 L/min nasal cannula. SpO2 is 95%. No conversational dyspnea or accessory muscle use. She wants to see if she qualifies for home oxygen again. The patient is seen today July 11, 2024 in follow-up on the regular medical floor. She is currently sitting up in bed. Awake and alert in no acute distress. Currently receiving hemodialysis. She is maintaining saturations in the upper 90s on 3 L/min per nasal cannula. She is afebrile. Hemodynamically stable. White count 3.0. Hemoglobin 8.8. Platelets 235. Sodium 133. Potassium 4.3. Bicarb 26. BUN 25. Creatinine 1.8. Glucose 144. Procalcitonin was negative at 0.15. She remains on Symbicort, DuoNeb and elations. Heparin for DVT prophylaxis. She is continued on IV diuretics. Currently in a -6.1 L balance. The patient is seen today July 12, 2024 in follow-up on the regular medical floor. She is awake and alert in no acute distress. Sitting up in bed. Denies any worsening shortness of breath, cough or congestion. White count 3.8. Hemoglobin 9.1. Platelets 245. Sodium 134. Potassium 4.6. Bicarb 27. BUN 18. Creatinine 2.0. Glucose 233. She did have 3 L removed during hemodialysis yesterday and another 3 L removed today. Chest x-ray showing improvement in the fluid volume overload. She is maintaining O2 saturations in the 90s on room air. She has been afebrile. Hemodynamically stable. The patient is seen today July 13, 2024 in follow-up on the regular medical floor. She is currently sitting up in a chair at the bedside. Awake and alert in no acute distress. She is maintaining good O2 saturations in the 90s on 3 L/min per nasal cannula. Chest x-ray is showing improvement in the fluid volume overload. Plan is for hemodialysis today. Possible home after that. White count 3.5. Hemoglobin 9.8. Platelets 246. Sodium 131. Potassium 4.5. Bicarb 26. BUN 22. Creatinine 1.69. Glucose 234. She is continued on DuoNeb inhalations, Symbicort. Heparin for DVT prophylaxis. Remains on IV diuretics. Currently in a -5.6 L balance. 2.8 L removed from dialysis. The patient is seen today July 14, 2024 in follow-up on the regular medical floor. She is awake and alert in no acute distress. Sitting up in a chair. Maintaining O2 saturations in the 90s on room air. White count 3.7. Hemoglobin 8.7. Platelets 208. Sodium 134. Potassium 3.9. Bicarb 27. BUN 14. Cre atinine 1.6. Glucose 173. She did undergo hemodialysis yesterday with 3 L removed. Fluid volume status has improved. Is for hemodialysis tomorrow. She remains on IV diuretics. Heparin for DVT prophylaxis. Continued on bronchodilators. The patient is seen today July 15, 2024 in follow-up on the regular medical floor. She is sitting up in a chair at the bedside. Awake and alert in no acu te distress. Maintaining O2 saturations in the 90s on 2 L/min per nasal cannula. No IV fluids. She is due for hemodialysis again today. She remains on IV diuretics. She has been initiated on a 1500 cc fluid restriction per nephrology. Glucose 232. She remains on DuoNeb inhalations, Symbicort. Heparin for DVT prophylaxis. The patient is seen today July 16, 2024 in follow-up on the regular medical floor. She is currently resting comfortably in bed. Awake and alert in no acute distress. Receiving hemodialysis. Plan is to remove 3 L today if tolerated. She denies any worsening shortness of breath, cough or congestion. Maintaining good O2 saturations in the upper 90s on 2 L/min per nasal cannula. She is afebrile. Hemodynamically stable. Sodium 131. Potassium 4.0. Bicarb 27. BUN 17. Creatinine 1.6. Glucose 179. Remains on bronchodilators. Heparin for DVT prophylaxis. Transitioned to oral diuretics. Objective - Vital Signs Vital signs: Vital Signs Temp 98 F 07/16/24 13:11 Pulse 68 07/16/24 13:11 Resp 18 07/16/24 13:11 BP 126/79 07/16/24 13:11 Pulse Ox 97 07/16/24 08:00 FiO2 Intake & Output 07/15/24 07/16/24 07/16/24 18:59 06:59 18:59 Intake Total 500 500 Output Total 6500 6500 Balance -6000 -6000 Weight 70 kg Intake: Hemodialysis 500 500 Output: Hemodialysis 3500 3500 Hemodialysis Net Amount 3000 3000 Other: Voiding Method Toilet Toilet - Exam GENERAL EXAM: Alert, 59-year-old female, resting in bed, receiving hemodialysis, on 2 L nasal cannula, in no apparent distress. HEAD: Normocephalic and atraumatic EYES: Normal reaction of pupils, equal size. NOSE: Clear with pink turbinates. THROAT: No erythema or exudates. NECK: No masses, no JVD. CHEST: No chest wall deformity. Right chest tunneled HD cath LUNGS: Equal air entry with diminished bibasilar lung sounds. No wheezes, rhonchi, crackles. CVS: S1 and S2 normal with no audible murmur, regular rhythm. No extra heart sounds ABDOMEN: No hepatosplenomegaly, active bowel sounds, no guarding or rigidity. SPINE: No scoliosis or deformity SKIN: No rashes. Left lower extremity shallow ulceration with clear discharge. CENTRAL NERVOUS SYSTEM: No focal deficits, tone is normal in all 4 extremities. EXTREMITIES: Bilateral lower extremity 2+ pitting edema. Peripheral pulses are intact. - Labs CBC & Chem 7: 07/14/24 03:11 07/16/24 02:47 Labs: Abnormal Lab Results - Last 24 Hours (Table) 07/15/24 07/15/24 07/16/24 Range/Units 16:23 21:38 02:47 Sodium 131 L (135-145) mmol/L Chloride 95 L (96-109) mmol/L Creatinine 1.6 H (0.6-1.5) mg/dL Est GFR (CKD-EPI) 37 L (>=60) BUN/Creatinine Ratio 10.62 L (12.00-20.00) Ratio Glucose 179 H (70-110) mg/dL POC Glucose (mg/dL) 190 H 183 H (70-110) mg/dL Calcium 8.0 L (8.7-10.3) mg/dL 07/16/24 07/16/24 Range/Units 06:22 11:04 Sodium (135-145) mmol/L Chloride (96-109) mmol/L Creatinine (0.6-1.5) mg/dL Est GFR (CKD-EPI) (>=60) BUN/Creatinine Ratio (12.00-20.00) Ratio Glucose (70-110) mg/dL POC Glucose (mg/dL) 311 H 185 H (70-110) mg/dL Calcium (8.7-10.3) mg/dL Assessment and Plan Assessment: Acute hypoxemic respiratory failure, multifactorial, secondary to missed hemodialysis, fluid overload, and acute systolic CHF exacerbation Hypervolemic hyponatremia Hyperkalemia, potassium 5.7, improved currently 4.0 Bilateral pleural effusions, with history of right-sided thoracentesis at outside facility History of multivessel coronary artery disease status post four-vessel coronary artery bypass grafting on 02/26/2024 History of a non-ST elevation IA History of ischemic cardiomyopathy, with an ejection fraction estimated at 20 to 25%, as well as, moderate to severe mitral valve regurgitation History of COVID-19 infection, treated outpatient facility, approximately 1 month ago End-stage renal disease, normally maintained on hemodialysis, on a MWF schedule Chronic obstructive pulmonary disease, stable Diabetes mellitus type 1 History of hyperlipidemia History of hypertension History of CVA/TIA History of hypothyroidism History of fibromyalgia History of GERD Former tobacco smoker, quit smoking in December 2023 Plan: The patient was seen and evaluated Labs and medications reviewed Received hemodialysis again today Transitioned to oral diuretics Evaluate for possible home oxygen Cleared for discharge from the pulmonary standpoint I have personally seen and examined the patient, performed the documentation and the assessment and plan as written. Number of minutes spent on the visit: 10.
[2024-07-16 14:45] VITALS: BMI 23.1
[2024-07-16 14:53] VITALS: BP 119/74; RESP 16; TEMP 97.6
[2024-07-16 15:00] VITALS: PULSE 72
[2024-07-16 16:36] LABS: Glucose,Whole Blood 354 mg/dL (70-110)
--- NOTE | 2024-07-16 17:03 | P.PN ---
Subjective Progress Note Date: 07/16/24 Acute hypoxic respiratory failure ESRD on hemodialysis Hypervolemic hyponatremia, resolving Acute CHF systolic exacerbation Ischemic cardiomyopathy History of CAD status post CABG COPD not in exacerbation Anemia of chronic kidney disease, stable Hypertension Type 2 diabetes, insulin-dependent Hypothyroidism Gen: In NAD, non-toxic HEENT: normocephalic, atraumatic, hearing acuity is intant, mucous membranes moist CVS: perfusing all extremities well, no pitting edema, Respiratory: symmetric chest expansion, no accessory muscle use, GI: soft, NTTP, ND, : no suprapubic tenderness, no CVA tenderness MSK/Derm: no rashes, cyanosis Neuro: CN II-XII intact, no motor weakness, Hospital Course: 59-year-old female with history of HFrEF, EF around 20%, ESRD on hemodialysis, COPD, type 2 diabetes, CAD status post CABG, dyslipidemia, GERD, hypothyroidism, anxiety/depression presenting with acute hypoxic respiratory failure secondary to hypervolemia, CHF exacerbation and ESRD requiring hemodialysis. ED workup revealed proBNP 01542, troponin 1 <0.012 and chest x-ray that shows pulmonary vascular congestion with small bilateral pleural effusion similar to prior on 07/05/2024. In the ED she was treated with Dilaudid, DuoNebs and 0.9 normal saline. Vitals: T97.3F, P 85 bpm, RR 16, BP 127/79, O2 sat 98% on room air. Coag: PT 10.3, INR 0.9, APTT 25.3. EKG: Sinus rhythm, rate of 84 bpm, QTc 486 ms, LVH, poor R wave progression. Patient admitted with consultation for pulmonology, and nephrology. Patient treated with IV Lasix. After getting dialysis, symptoms continue to improve. Patient was subsequently cleared for discharge by both nephrology and pulmonology. Patient was counseled on appropriate compliance with medical recommendations to prevent readmissions and worsening health. Patient will follow-up with nephrology, pulmonology, primary care physician at discharge. I spent 40 minutes coordinating this discharge Objective - Vital Signs Vital signs: Vital Signs Temp 97.6 F 07/16/24 14:00 Pulse 72 07/16/24 15:00 Resp 16 07/16/24 14:00 BP 119/74 07/16/24 14:00 Pulse Ox 97 07/16/24 14:00 FiO2 Intake & Output 07/15/24 07/16/24 07/16/24 18:59 06:59 18:59 Intake Total 500 618 Output Total 6500 6500 Balance -6000 -5882 Weight 70 kg 70 kg Intake: Oral 118 Hemodialysis 500 500 Output: Hemodialysis 3500 3500 Hemodialysis Net Amount 3000 3000 Other: Voiding Method Toilet Toilet - Labs CBC & Chem 7: 07/14/24 03:11 07/16/24 02:47 Labs: Abnormal Lab Results - Last 24 Hours (Table) 07/15/24 07/16/24 07/16/24 Range/Units 21:38 02:47 06:22 Sodium 131 L (135-145) mmol/L Chloride 95 L (96-109) mmol/L Creatinine 1.6 H (0.6-1.5) mg/dL Est GFR (CKD-EPI) 37 L (>=60) BUN/Creatinine Ratio 10.62 L (12.00-20.00) Ratio Glucose 179 H (70-110) mg/dL POC Glucose (mg/dL) 183 H 311 H (70-110) mg/dL Calcium 8.0 L (8.7-10.3) mg/dL 07/16/24 07/16/24 Range/Units 11:04 16:35 Sodium (135-145) mmol/L Chloride (96-109) mmol/L Creatinine (0.6-1.5) mg/dL Est GFR (CKD-EPI) (>=60) BUN/Creatinine Ratio (12.00-20.00) Ratio Glucose (70-110) mg/dL POC Glucose (mg/dL) 185 H 354 H (70-110) mg/dL Calcium (8.7-10.3) mg/dL
[2024-07-17] MEDS ORDERED: TORSEMIDE 20 MG TAB PO SCH (09:00)
== END 2024-07-16 17:50 | disposition home health service (06) | DRG 291 ==
LOC: EC 13:14 → 4SSUR 18:17
PROVIDERS: ADMIT Internal Medicine; ATTEND Internal Medicine
PROC: 5A1D70Z Performance of Urinary Filtration, Intermittent, Less than 6 Hours Per Day (ICD-10-PCS; principal; 2024-07-11)
DX: I13.2 Hypertensive heart and chronic kidney disease with heart failure and with stage 5 chronic kidney disease, or end stage renal disease (principal); I50.23 Acute on chronic systolic (congestive) heart failure; J96.01 Acute respiratory failure with hypoxia; N18.6 End stage renal disease; E87.1 Hypo-osmolality and hyponatremia; J44.0 Chronic obstructive pulmonary disease with (acute) lower respiratory infection; N17.9 Acute kidney failure, unspecified; I25.10 Atherosclerotic heart disease of native coronary artery without angina pectoris; I25.2 Old myocardial infarction; I34.0 Nonrheumatic mitral (valve) insufficiency; E03.9 Hypothyroidism, unspecified; E10.22 Type 1 diabetes mellitus with diabetic chronic kidney disease; E87.5 Hyperkalemia; F32.A Depression, unspecified; I44.7 Left bundle-branch block, unspecified; F41.9 Anxiety disorder, unspecified; Z99.2 Dependence on renal dialysis; Z86.16 Personal history of COVID-19; M79.7 Fibromyalgia; D63.1 Anemia in chronic kidney disease; Z79.02 Long term (current) use of antithrombotics/antiplatelets; Z87.891 Personal history of nicotine dependence; Z79.890 Hormone replacement therapy; I25.5 Ischemic cardiomyopathy; E78.5 Hyperlipidemia, unspecified; Z79.4 Long term (current) use of insulin; Z79.82 Long term (current) use of aspirin; Z79.899 Other long term (current) drug therapy; Z86.73 Personal history of transient ischemic attack (TIA), and cerebral infarction without residual deficits; Z82.49 Family history of ischemic heart disease and other diseases of the circulatory system; Z87.01 Personal history of pneumonia (recurrent); Z90.710 Acquired absence of both cervix and uterus; Z95.1 Presence of aortocoronary bypass graft; Z98.51 Tubal ligation status
CPT/HCPCS: 36415; 71045; 71046; 80048; 80053; 83735; 83880; 84100; 84145; 84484; 85025; 85610; 85730; 90935; 93005; 94640; 94760; 96374; 99285

== ENCOUNTER 2024-08-26 05:00 | Inpatient (IN) | payer MEDICARE, OTHER ==
--- NOTE | 2024-08-26 05:04 | ED ---
SOB HPI - General Stated Complaint: DIANA Time Seen by Provider: 08/26/24 05:03 Source: RN notes reviewed, old records reviewed Mode of arrival: EMS Limitations: no limitations - History of Present Illness Initial Comments: This is a 59 female to the ER for evaluation this patient presents today for evaluation regards to shortness of breath with concern for fluid overload history of heart disease history of COPD history of dialysis MD Complaint: shortness of breath, cough Severity: severe Severity scale (1-10): 8 Quality: aching Consistency: constant Improves With: nothing Worsens With: nothing Known History Of: COPD, congestive heart failure Context: recent URI, anxiety, recent illness Associated Symptoms: denies other symptoms - Related Data Home Medications Medication Instructions Recorded Confirmed Levothyroxine Sodium [Synthroid] 175 mcg PO DAILY 02/02/22 07/09/24 Ondansetron [Zofran] 4 mg PO Q8H PRN 02/06/24 07/09/24 traZODone HCL [Desyrel] 50 mg PO HS 02/09/24 07/09/24 Acetaminophen Tab [Tylenol] 650 mg PO Q6H PRN 06/30/24 07/09/24 Aspirin EC [Ecotrin Low Dose] 81 mg PO DAILY 06/30/24 07/09/24 Atorvastatin [Lipitor] 40 mg PO HS 06/30/24 07/09/24 Fluticasone/Umeclidin/Vilanter 1 puff INHALATION RT-DAILY 06/30/24 07/09/24 [Trelegy Ellipta 100-62.5-25] INSULIN ASPART (NovoLOG) [NovoLOG See Protocol SQ AC-TID 06/30/24 07/09/24 (formulary)] Ipratropium [place] [Atrovent Hfa] 2 puff INHALATION RT-Q6H PRN 06/30/24 07/09/24 Polyvinyl Alcohol/Povidone [Clear 1 drop BOTH EYES QID PRN 06/30/24 07/09/24 Eyes Natural Tears Drop] bisacodyL [Dulcolax] 5 mg PO HS 06/30/24 07/09/24 methocarbamoL [Robaxin-750] 750 mg PO Q6H PRN 06/30/24 07/09/24 Previous Rx's Medication Instructions Recorded Clopidogrel [Plavix] 75 mg PO DAILY tab 03/18/24 Ipratropium-Albuterol Nebulize 3 ml INHALATION RT-Q2H PRN each 03/18/24 [Duoneb 0.5 mg-3 mg/3 ml Soln] Magnesium Oxide [Mag-Ox] 400 mg PO DAILY tab 03/18/24 Pantoprazole [Protonix] 40 mg PO AC-BRKFST tab 03/18/24 Tamsulosin [Flomax] 0.4 mg PO PC-SUPPER cap 03/18/24 Insulin Glargine,Hum.rec.anlog 14 units SQ DAILY #0 07/05/24 [Lantus Solostar Pen] Metoprolol Succinate (ER) [Toprol 25 mg PO DAILY #30 tab 07/05/24 XL] Torsemide [Demadex] 40 mg PO DAILY #30 tab 07/05/24 hydrALAZINE HCL [Apresoline] 25 mg PO TID #90 tab 07/05/24 Midodrine [ProAmatine] 5 mg PO AC-BID #60 tab 07/16/24 Allergies Allergy/AdvReac Type Severity Reaction Status Date / Time Sulfa (Sulfonamide Allergy Rash/Hives Verified 08/26/24 05:07 Antibiotics) Review of Systems ROS Statement: Those systems with pertinent positive or pertinent negative responses have been documented in the HPI. ROS Other: All systems not noted in ROS Statement are negative. Past Medical History Past Medical History: Coronary Artery Disease (CAD), Chest Pain / Angina, Heart Failure, COPD, CVA/TIA, Diabetes Mellitus, Fibromyalgia, GERD/Reflux, Hyperlipidemia, Hypertension, Liver Disease, Myocardial Infarction (HI), Osteoarthritis (OA), Renal Disease, Thyroid Disorder Additional Past Medical History / Comment(s): NEUROPATHY BILATERAL FEET, DDD NECK AND LOWER BACK, hiatal hernia, states no need for BP med anymore(gets orthostatic hypotension-has "medtronic heart loop monitor"), hx hepatitis as a kid, hx fractrured left wrist, hx stroke 03/03/22-problems with balance since. Last Myocardial Infarction Date:: 02/2024 History of Any Multi-Drug Resistant Organisms: MRSA Date of last positivie culture/infection: 2017 MDRO Source:: stomach Past Surgical History: Adenoidectomy, Back Surgery, Bladder Surgery, Hysterectomy, Orthopedic Surgery, Tonsillectomy, Tubal Ligation Additional Past Surgical History / Comment(s): Debridement right foot, PICC line placed and later removed, bladder suspension, exploratory laparotomy, right great toe amputation, pins right in foot, cataracts removed, left wrist ORIF, loop heart monitor placed 02/2022. Past Anesthesia/Blood Transfusion Reactions: No Reported Reaction, Motion Sickness Additional Past Anesthesia/Blood Transfusion Reaction / Comment(s): . Type of Cardiac Device: Loop Past Psychological History: Anxiety, Depression Smoking Status: Former smoker Past Alcohol Use History: Occasional Past Drug Use History: Marijuana, Methamphetamine - Past Family History Sister(s) Family Medical History: Coronary Artery Disease (CAD) Mother Family Medical History: Pulmonary Embolus Additional Family Medical History / Comment(s): . Father Additional Family Medical History / Comment(s): at 26yrs old--accident at work General Exam General appearance: alert, in no apparent distress Head exam: Present: atraumatic, normocephalic, normal inspection Eye exam: Present: normal appearance, PERRL, EOMI. Absent: scleral icterus, conjunctival injection, periorbital swelling ENT exam: Present: normal exam, mucous membranes moist Neck exam: Present: normal inspection. Absent: tenderness, meningismus, lymphadenopathy Respiratory exam: Present: normal lung sounds bilaterally. Absent: respiratory distress, wheezes, rales, rhonchi, stridor Cardiovascular Exam: Present: regular rate, normal rhythm, normal heart sounds. Absent: systolic murmur, diastolic murmur, rubs, gallop, clicks GI/Abdominal exam: Present: soft, normal bowel sounds. Absent: distended, tenderness, guarding, rebound, rigid Extremities exam: Present: normal inspection, full ROM, normal capillary refill. Absent: tenderness, pedal edema, joint swelling, calf tenderness Back exam: Present: normal inspection Neurological exam: Present: alert, oriented X3, CN II-XII intact Psychiatric exam: Present: normal affect, normal mood Skin exam: Present: warm, dry, intact, normal color. Absent: rash Course Vital Signs 08/26/24 05:01 Temperature 97.4 F L Pulse Rate 85 Respiratory 20 Rate Blood Pressure 122/73 O2 Sat by Pulse 100 Oximetry - Reevaluation(s) Reevaluation #1: 08/26/24 05:07 Medical records reviewed Reevaluation #4: Was pt. sent in by a medical professional or institution (TOM Olson, [employer], urgent care, hospital, or usp...) When possible be specific @ -no Did you speak to anyone other than the patient for history (EMS, parent, family, police, friend...)? What history was obtained from this source @ -no Did you review nursing and triage notes (agree or disagree)? Why? @ -agree Are old charts reviewed (outside hosp., previous admission, EMS record, old EKG, old radiological studies, urgent care reports/EKG's, usp records)? Report findings @ -yes Differential Diagnosis (chest pain, altered mental status, abdominal pain women, abdominal pain men, vaginal bleeding, weakness, fever, dyspnea, syncope, headache, dizziness, GI bleed, back pain, seizure, CVA, palpatations, mental health, musculoskeletal)? @ -prior EKG interpreted by me (3pts min.). @ -yes X-rays interpreted by me (1pt min.). @ -yes negative for acute disease CT interpreted by me (1pt min.). @ -no U/S interpreted by me (1pt. min.). @ -no What testing was considered but not performed or refused? (CT, X-rays, U/S, labs)? Why? @ -none What meds were considered but not given or refused? Why? @ -none Did you discuss the management of the patient with other professionals (professionals i.e. TOM Olson, [employer]ER, lab, RT, psych nurse, nephrology social worker, animal husbandry worker, teacher, duty officer, caseworker intake)? Give summary @ -no Was smoking cessation discussed for >3mins.? @ -no Was critical care preformed (if so, how long)? @ -no Were there social determinants of health that impacted care today? How? (Homelessness, low income, unemployed, alcoholism, drug addiction, transportation, low edu. Level, literacy, decrease access to med. care, detention, rehab)? @ -none Was there de-escalation of care discussed even if they declined (Discuss DNR or withdrawal of care, Hospice)? DNR status @ -no What co-morbidities impacted this encounter? (DM, HTN, Smoking, COPD, CAD, Cancer, CVA, ARF, Chemo, Hep., AIDS, mental health diagnosis, sleep apnea, morbid obesity)? @ -none Was patient admitted / discharged? Hospital course, mention meds given and route, prescriptions, significant lab abnormalities, going to OR and other pertinent info. @ - Undiagnosed new problem with uncertain prognosis? @ -no Drug Therapy requiring intensive monitoring for toxicity (Heparin, Nitro, Insulin, Cardizem)? @ -no Were any procedures done? @ -no Diagnosis/symptom? @ - Acute, or Chronic, or Acute on Chronic? @ -Acute Uncomplicated (without systemic symptoms) or Complicated (systemic symptoms)? @ -Complicated Side effects of treatment? @ -no Exacerbation, Progression, or Severe Exacerbation? @ -exacerbation Poses a threat to life or bodily function? How? (Chest pain, [place], HI, pneumonia, PE, COPD, DKA, ARF, appy, cholecystitis, CVA, Diverticulitis, Homicidal, Suicidal, threat to staff... and all critical care pts) @ -yes Reevaluation #5: Differential Dyspnea: Coronary syndrome, arrhythmia, tamponade, asthma, COPD, pulmonary embolism, pneumonia, pneumothorax, pulmonary effusion, anaphylaxis, diabetic ketoacidosis, flailed chest, pulmonary contusion, diaphragmatic rupture, anemia, neuromuscular, this is not meant to be an all-inclusive list. Medical Decision Making - Lab Data Result diagrams: 08/26/24 05:08 08/26/24 05:08 Lab Results 08/26/24 08/26/24 08/26/24 Range/Units 05:08 05:08 05:08 WBC 9.4 (3.8-10.6) k/uL RBC 3.39 L (3.80-5.40) m/uL Hgb 11.0 L (11.4-16.0) gm/dL Hct 35.3 (34.0-46.0) % MCV 104.3 H D (80.0-100.0) fL MCH 32.4 (25.0-35.0) pg MCHC 31.1 (31.0-37.0) g/dL RDW 18.2 H (11.5-15.5) % Plt Count 224 (150-450) k/uL MPV 7.8 Hypochromasia Moderate Anisocytosis Slight Macrocytosis Marked A PT 11.5 (10.0-12.5) sec INR 1.1 (<1.2) APTT 25.7 (22.0-30.0) sec Sodium 131 L (137-145) mmol/L Potassium 4.2 (3.5-5.1) mmol/L Chloride 100 (98-107) mmol/L Carbon Dioxide 20 L (22-30) mmol/L Anion Gap 11 mmol/L BUN 54 H (7-17) mg/dL Creatinine 3.27 H (0.52-1.04) mg/dL Est GFR (CKD-EPI)AfAm 17 (>60 ml/min/1.73 sqM) Est GFR (CKD-EPI)NonAf 15 (>60 ml/min/1.73 sqM) Glucose 116 H (74-99) mg/dL Calcium 8.6 (8.4-10.2) mg/dL Magnesium 1.9 (1.6-2.3) mg/dL Total Bilirubin 0.6 (0.2-1.3) mg/dL AST 133 H (14-36) U/L ALT 57 H (4-34) U/L Alkaline Phosphatase 338 H (38-126) U/L Troponin I (0.000-0.034) ng/mL NT-Pro-B Natriuret Pep 87123 pg/mL Total Protein 7.0 (6.3-8.2) g/dL Albumin 3.6 (3.5-5.0) g/dL 08/26/24 Range/Units 05:08 WBC (3.8-10.6) k/uL RBC (3.80-5.40) m/uL Hgb (11.4-16.0) gm/dL Hct (34.0-46.0) % MCV (80.0-100.0) fL MCH (25.0-35.0) pg MCHC (31.0-37.0) g/dL RDW (11.5-15.5) % Plt Count (150-450) k/uL MPV Hypochromasia Anisocytosis Macrocytosis PT (10.0-12.5) sec INR (<1.2) APTT (22.0-30.0) sec Sodium (137-145) mmol/L Potassium (3.5-5.1) mmol/L Chloride (98-107) mmol/L Carbon Dioxide (22-30) mmol/L Anion Gap mmol/L BUN (7-17) mg/dL Creatinine (0.52-1.04) mg/dL Est GFR (CKD-EPI)AfAm (>60 ml/min/1.73 sqM) Est GFR (CKD-EPI)NonAf (>60 ml/min/1.73 sqM) Glucose (74-99) mg/dL Calcium (8.4-10.2) mg/dL Magnesium (1.6-2.3) mg/dL Total Bilirubin (0.2-1.3) mg/dL AST (14-36) U/L ALT (4-34) U/L Alkaline Phosphatase (38-126) U/L Troponin I 0.013 (0.000-0.034) ng/mL NT-Pro-B Natriuret Pep pg/mL Total Protein (6.3-8.2) g/dL Albumin (3.5-5.0) g/dL - EKG Data -: EKG Interpreted by Me (EKG is sinus 88 MI 139 QRS 136 QTc 436) Disposition Clinical Impression: Chronic, continuous use of opioids, Acute exacerbation of chronic obstructive pulmonary disease, Acute pulmonary edema, Systolic congestive heart failure, Diastolic congestive heart failure, COPD (chronic obstructive pulmonary disease), Renal failure, Dizziness Disposition: ADMITTED IP TO THIS HOSP Condition: Fair Is patient prescribed a controlled substance at d/c from ED?: No Referrals: Papi Saavedra DO [Primary Care Provider] - 1-2 days Time of Disposition: 06:10
[2024-08-26] MEDS: SODIUM CHLORIDE 0.9% 1,000 ML IV STA (05:16)
[2024-08-26 05:34] LABS: INR 1.1 (<1.2); Partial Thromboplastin Time 25.7 sec (22.0-30.0); Prothrombin Time 11.5 sec (10.0-12.5)
[2024-08-26 05:37] LABS: ALT 57 U/L (4-34); AST 133 U/L (14-36); African American GFR (CKD) 17 (>60 ml/min/1.73 sqM); Albumin 3.6 g/dL (3.5-5.0); Alkaline Phosphatase 338 U/L (38-126); Anion Gap 11 mmol/L; Blood Urea Nitrogen 54 mg/dL (7-17); Calcium 8.6 mg/dL (8.4-10.2); Carbon Dioxide 20 mmol/L (22-30); Chloride 100 mmol/L (98-107); Glucose 116 mg/dL (74-99); Magnesium 1.9 mg/dL (1.6-2.3); Non-African American GFR(CKD) 15 (>60 ml/min/1.73 sqM); Potassium 4.2 mmol/L (3.5-5.1); Sodium 131 mmol/L (137-145); Total Bilirubin 0.6 mg/dL (0.2-1.3)
--- NOTE | 2024-08-26 05:42 | XR ---
EXAMINATION TYPE: XR chest 1V portable DATE OF EXAM: 08/26/2024 COMPARISON: Prior chest x-ray July 12, 2024 HISTORY: Shortness of breath TECHNIQUE: Single frontal view of the chest is obtained. FINDINGS: Overlying sternal wires and mediastinal clips are redemonstrated. Left atrial appendage cl ip is redemonstrated. Persistent large bore right internal jugular dialysis catheter. Persistent mild cardiomegaly. There are small left greater than right pleural effusions and mild central vascular co ngestion . Overlying loop recorder is redemonstrated . The osseous structures are intact. IMPRESSION: Findings consistent with CHF exacerbation/fluid overload state. Findings slightly less p rominent versus most recent prior. [facility], , 08/26/2024 5:40 AM
[2024-08-26 05:53] LABS: Anisocytosis Slight; Basophils % (A) 0 %; Eosinophils # (A) 0.2 k/uL (0-0.7); Eosinophils % (A) 3 %; HCT 35.3 % (34.0-46.0); Hypochromasia Moderate; Lymphocytes # (A) 1.7 k/uL (1.0-4.8); Lymphocytes % (A) 18 %; MCH 32.4 pg (25.0-35.0); MCHC 31.1 g/dL (31.0-37.0); Macrocytosis Marked; Mean Platelet Volume 7.8; Monocytes # (A) 0.5 k/uL (0-1.0); Monocytes % (A) 6 %; Neutrophils # (A) 6.8 k/uL (1.3-7.7); Neutrophils % (A) 72 %; Platelet Count 224 k/uL (150-450); RBC 3.39 m/uL (3.80-5.40); RDW 18.2 % (11.5-15.5); WBC 9.4 k/uL (3.8-10.6)
[2024-08-26 06:01] LABS: MCV 104.3 fL (80.0-100.0)
[2024-08-26 06:05] LABS: NT-Pro-B-Type Natriuretic Pept 32900 pg/mL
[2024-08-26] MEDS ORDERED: NALOXONE 0.4 MG/ML 1 ML VIAL IV PRN (06:13)
[2024-08-26] MEDS: IPRATROPIUM-ALBUTEROL 3 ML NEB INHALATION STA ×2 (06:17→06:18)
[2024-08-26] MEDS: SODIUM CHLORIDE 0.9% 1,000 ML IV SCH (06:18)
[2024-08-26 06:33] LABS: Polychromasia Present; Tear Drop Cells Present
[2024-08-26] MEDS: MORPHINE SULFATE 4 MG/ML SYRINGE IV PRN (08:29)
[2024-08-26] MEDS: ONDANSETRON 4 MG/2 ML VIAL IVP PRN (08:31)
--- NOTE | 2024-08-26 09:00 | P.CRDCN ---
History of Present Illness Consult date: 08/26/24 History of present illness: HISTORY OF PRESENTING ILLNESS Patient is a 59-year-old female known to Dr. Saunders. She has a prior history of coronary artery disease with ischemic cardiomyopathy. She also has a history of type 2 diabetes, end-stage renal disease, hypothyroidism, history of tobacco use and COPD. January 2024 she had hospitalization for NSTEMI. In February 2020 she underwent CABG x 4, RUSSO to LAD, and diagonal, SVG to PDA and second OM with closure of left atrial appendage. Her last hospitalization was in June 2024 when she was treated for CHF exacerbation. During that time she also had COVID-19 infection. This time she presented to the hospital because of increased worsening shortness of breath, difficulty breathing along. On admission her NT-proBNP was 33,000, initial troponin negative, creatinine of 3.27, previously Reported creatinine was 1.6. She is hemodialysis dependent through a subclavian port. She is g etting evaluated for possible home-based peritoneal dialysis versus hemodialysis. Chest x-ray shows signs of pulmonary congestion. In February and June she had a surface echocardiogram which showed cardiomyopathy with a EF of 20% with severe mitral regurgitation. However she had a [place] with Dr. Berman in February which only reported mild secondary MR. REVIEW OF SYSTEMS 14 point review of system is negative except what is mentioned above in HPI. PHYSICAL EXAMINATION Vital signs reviewed. Head: Normocephalic. Eyes: Sclerae nonicteric. Neck: Brisk carotid upstroke, elevated JVD Lungs: Crackles audible in bilateral lung field heart: Regular rate and rhythm, S1-S2 systolic murmur, palpable heave. Abdomen: Soft nontender, positive bowel sounds. Extremities: 1-2+ swelling in the legs with chronic skin thickening and changes. Neuro: Alert, oritented, no focal deficits. Detailed neuro exam was not performed. ASSESSMENT Acute hypoxic respiratory failure along with respiratory distress. Most likely due to acute HFrEF exacerbation Ischemic cardiomyopathy CAD status post CABG x 4, RUSSO to LAD sequential to diagonal, SVG to PDA sequential and OM 2. February 2020 Valvular heart disease with TTE reporting severe MR, [place] reporting mild secondar y MR. Type 2 diabetes Hypertension ESRD Macrocytic anemia PLAN Continue aspirin, Plavix, statin Continue metoprolol succinate 25 mg daily I would recommend this patient to be on some form of guideline directed medical therapy for ischemic cardiomyopathy and valvular heart disease. I would recommend Entresto for her. Would await nephrology clearance on this. She makes minimal urine and is somewhat dialysis dependent She should also get evaluated for an ICD She should also get HFMS device to prevent recurrent hospitalization and manage her fluid status better. Obtain updated echo Request primary team to workup her macrocytic anemia Past Medical History Past Medical History: Coronary Artery Disease (CAD), Chest Pain / Angina, Heart Failure, COPD, CVA/TIA, Diabetes Mellitus, Fibromyalgia, GERD/Reflux, Hyperlipidemia, Hypertension, Liver Disease, Myocardial Infarction (MA), Osteoarthritis (OA), Renal Disease, Thyroid Disorder Additional Past Medical History / Comment(s): NEUROPATHY BILATERAL FEET, DDD NECK AND LOWER BACK, hiatal hernia, states no need for BP med anymore(gets orthostatic hypotension-has "medtronic heart loop monitor"), hx hepatitis as a kid, hx fractrured left wrist, hx stroke 03/03/22-problems with balance since. Last Myocardial Infarction Date:: 02/2024 History of Any Multi-Drug Resistant Organisms: MRSA Date of last positivie culture/infection: 2017 MDRO Source:: stomach Past Surgical History: Adenoidectomy, Back Surgery, Bladder Surgery, Hysterectomy, Orthopedic Surgery, Tonsillectomy, Tubal Ligation Additional Past Surgical History / Comment(s): Debridement right foot, PICC line placed and later removed, bladder suspension, exploratory laparotomy, right great toe amputation, pins right in foot, cataracts removed, left wrist ORIF, loop heart monitor placed 02/2022. Past Anesthesia/Blood Transfusion Reactions: No Reported Reaction, Motion Sickness Additional Past Anesthesia/Blood Transfusion Reaction / Comment(s): . Type of Cardiac Device: Loop Past Psychological History: Anxiety, Depression Smoking Status: Former smoker Past Alcohol Use History: Occasional Past Drug Use History: Marijuana, Methamphetamine - Past Family History Sister(s) Family Medical History: Coronary Artery Disease (CAD) Mother Family Medical History: Pulmonary Embolus Additional Family Medical History / Comment(s): . Father Additional Family Medical History / Comment(s): at 26yrs old--accident at work Medications and Allergies Home Medications Medication Instructions Recorded Confirmed Type Levothyroxine Sodium [Synthroid] 175 mcg PO DAILY 02/02/22 08/26/24 History Ondansetron [Zofran] 4 mg PO Q8H PRN 02/06/24 08/26/24 History traZODone HCL [Desyrel] 50 mg PO HS 02/09/24 08/26/24 History Clopidogrel [Plavix] 75 mg PO DAILY tab 03/18/24 08/26/24 Rx Ipratropium-Albuterol Nebulize 3 ml INHALATION RT-Q2H PRN each 03/18/24 08/26/24 Rx [Duoneb 0.5 mg-3 mg/3 ml Soln] Pantoprazole [Protonix] 40 mg PO AC-BRKFST tab 03/18/24 08/26/24 Rx Acetaminophen Tab [Tylenol] 650 mg PO Q6H PRN 06/30/24 08/26/24 History Aspirin EC [Ecotrin Low Dose] 81 mg PO DAILY 06/30/24 08/26/24 History Atorvastatin [Lipitor] 40 mg PO HS 06/30/24 08/26/24 History Fluticasone/Umeclidin/Vilanter 1 puff INHALATION RT-DAILY 06/30/24 08/26/24 History [Trelegy Ellipta 100-62.5-25] Ipratropium [place] [Atrovent Hfa] 2 puff INHALATION RT-Q6H PRN 06/30/24 08/26/24 History Polyvinyl Alcohol/Povidone [Clear 1 drop BOTH EYES QID PRN 06/30/24 08/26/24 History Eyes Natural Tears Drop] Metoprolol Succinate (ER) [Toprol 25 mg PO DAILY #30 tab 07/05/24 08/26/24 Rx XL] Torsemide [Demadex] 40 mg PO DAILY #30 tab 07/05/24 08/26/24 Rx Insulin Aspart [NovoLOG Flexpen] See Protocol SQ AC-TID 08/26/24 08/26/24 History Insulin Glargine,Hum.rec.anlog 10 - 12 units SQ DAILY 08/26/24 08/26/24 History [Lantus Solostar Pen] Allergies Allergy/AdvReac Type Severity Reaction Status Date / Time Sulfa (Sulfonamide Allergy Rash/Hives Verified 08/26/24 08:41 Antibiotics) Physical Exam Vitals: Vital Signs Temp Pulse Resp BP Pulse Ox 08/26/24 06:26 90 08/26/24 06:19 90 08/26/24 05:01 97.4 F L 85 20 122/73 100 Intake and Output 08/25/24 08/26/24 08/26/24 22:59 06:59 14:59 Other: Weight 64 kg Results 08/26/24 05:08 08/26/24 05:08 Cardiac Enzymes 08/26/24 08/26/24 Range/Units 05:08 05:08 AST 133 H (14-36) U/L Troponin I 0.013 (0.000-0.034) ng/mL Coagulation 08/26/24 Range/Units 05:08 PT 11.5 (10.0-12.5) sec APTT 25.7 (22.0-30.0) sec CBC 08/26/24 Range/Units 05:08 WBC 9.4 (3.8-10.6) k/uL RBC 3.39 L (3.80-5.40) m/uL Hgb 11.0 L (11.4-16.0) gm/dL Hct 35.3 (34.0-46.0) % Plt Count 224 (150-450) k/uL Comprehensive Metabolic Panel 08/26/24 Range/Units 05:08 Sodium 131 L (137-145) mmol/L Potassium 4.2 (3.5-5.1) mmol/L Chloride 100 (98-107) mmol/L Carbon Dioxide 20 L (22-30) mmol/L BUN 54 H (7-17) mg/dL Creatinine 3.27 H (0.52-1.04) mg/dL Glucose 116 H (74-99) mg/dL Calcium 8.6 (8.4-10.2) mg/dL AST 133 H (14-36) U/L ALT 57 H (4-34) U/L Alkaline Phosphatase 338 H (38-126) U/L Total Protein 7.0 (6.3-8.2) g/dL Albumin 3.6 (3.5-5.0) g/dL Current Medications Generic Name Dose Route Start Last Admin Trade Name Freq PRN Reason Stop Dose Admin Aspirin 81 mg 08/26/24 09:00 Aspirin 81 Mg PO DAILY [facility] Atorvastatin Calcium 40 mg 08/26/24 21:00 Atorvastatin 40 Mg Tab PO [facility] Clopidogrel Bisulfate 75 mg 08/26/24 09:00 Clopidogrel 75 Mg Tab PO DAILY [facility] Diphenhydramine HCl 25 mg 08/26/24 08:56 Diphenhydramine 50 Mg/Ml 1 Ml Vial IVP 08/26/24 08:57 ONCE STA Sodium Chloride 1,000 mls @ 20 mls/hr 08/26/24 05:03 08/26/24 05:16 Saline 0.9% IV 08/27/24 05:02 20 mls/hr .Q24H STA Administration Sodium Chloride 1,000 mls @ 20 mls/hr 08/26/24 06:15 08/26/24 06:18 Saline 0.9% IV Not Given .Q24H LYNDSAY Metoprolol Succinate 25 mg 08/26/24 09:00 Metoprolol Succinate (Er) 25 Mg Tab.Er.24h PO DAILY [facility] Morphine Sulfate 4 mg 08/26/24 06:13 08/26/24 08:29 Morphine Sulfate 4 Mg/Ml Syringe IV 4 mg Q4HR PRN Administration Severe Pain (Scale 7 to 10) Naloxone HCl 0.2 mg 08/26/24 06:13 Naloxone 0.4 Mg/Ml 1 Ml Vial IV Q2M PRN Opioid Reversal Ondansetron HCl 4 mg 08/26/24 06:13 08/26/24 08:31 Ondansetron 4 Mg/2 Ml Vial IVP 4 mg Q8HR PRN Administration Nausea And Vomiting Intake and Output 08/25/24 08/26/24 08/26/24 22:59 06:59 14:59 Other: Weight 64 kg 08/26/24 05:08 08/26/24 05:08
[2024-08-26] MEDS: diphenhydrAMINE 50 MG/ML 1 ML VIAL IVP STA (09:06)
[2024-08-26] MEDS: ASPIRIN 81 MG PO SCH (09:06)
[2024-08-26] MEDS: METOPROLOL SUCCINATE (ER) 25 MG TAB.ER.24H PO SCH (09:06)
[2024-08-26] MEDS: CLOPIDOGREL 75 MG TAB PO SCH (09:06)
--- NOTE | 2024-08-26 10:13 | P.NPCON ---
History of Present Illness - Reason for Consult end stage renal disease - History of Present Illness Reason for consultation: End-stage renal disease History of present illness: Patient is a 59-year-old female seen in renal consultation for end-stage renal disease. She is maintained on hemodialysis on Monday schedule. Last hemodialysis was on Monday. Patient states yesterday morning she started feeling short of breath which progressively got worse overnight and she came to the hospital. She denies chest pain. Patient does have history of CABG. Also has longstanding history of diabetes. No vomiting or diarrhea. Oral intake has been fair. Hemodynamically stable. Chest x-ray suggestive of CHF. No fever or chills. No cough. She does wear 2 L oxygen at home and is currently on 2 L. She denies excessive salt or fluid intake over the weekend. Vital signs are stable. General: No acute distress. HEENT: Head exam is unremarkable. On nasal cannula. LUNGS: No audible rhonchi or wheezes. HEART: Rate and Rhythm are regular. ABDOMEN: Nontender. EXTREMITITES: 1+ edema. Past Medical History Past Medical History: Coronary Artery Disease (CAD), Chest Pain / Angina, Heart Failure, COPD, CVA/TIA, Diabetes Mellitus, Fibromyalgia, GERD/Reflux, Hyperlipidemia, Hypertension, Liver Disease, Myocardial Infarction (PR), Osteoarthritis (OA), Renal Disease, Thyroid Disorder Additional Past Medical History / Comment(s): NEUROPATHY BILATERAL FEET, DDD NECK AND LOWER BACK, hiatal hernia, states no need for BP med anymore(gets orthostatic hypotension-has "medtronic heart loop monitor"), hx hepatitis as a kid, hx fractrured left wrist, hx stroke 03/03/22-problems with balance since. Last Myocardial Infarction Date:: 02/2024 History of Any Multi-Drug Resistant Organisms: MRSA Date of last positivie culture/infection: 2017 MDRO Source:: stomach Past Surgical History: Adenoidectomy, Back Surgery, Bladder Surgery, Hysterectomy, Orthopedic Surgery, Tonsillectomy, Tubal Ligation Additional Past Surgical History / Comment(s): Debridement right foot, PICC line placed and later removed, bladder suspension, exploratory laparotomy, right great toe amputation, pins right in foot, cataracts removed, left wrist ORIF, loop heart monitor placed 02/2022. Past Anesthesia/Blood Transfusion Reactions: No Reported Reaction, Motion Sickness Additional Past Anesthesia/Blood Transfusion Reaction / Comment(s): . Type of Cardiac Device: Loop Past Psychological History: Anxiety, Depression Smoking Status: Former smoker Past Alcohol Use History: Occasional Past Drug Use History: Marijuana, Methamphetamine - Past Family History Sister(s) Family Medical History: Coronary Artery Disease (CAD) Mother Family Medical History: Pulmonary Embolus Additional Family Medical History / Comment(s): . Father Additional Family Medical History / Comment(s): at 26yrs old--accident at work Medications and Allergies Home Medications Medication Instructions Recorded Confirmed Type Levothyroxine Sodium [Synthroid] 175 mcg PO DAILY 02/02/22 08/26/24 History Ondansetron [Zofran] 4 mg PO Q8H PRN 02/06/24 08/26/24 History traZODone HCL [Desyrel] 50 mg PO HS 02/09/24 08/26/24 History Clopidogrel [Plavix] 75 mg PO DAILY tab 03/18/24 08/26/24 Rx Ipratropium-Albuterol Nebulize 3 ml INHALATION RT-Q2H PRN each 03/18/24 08/26/24 Rx [Duoneb 0.5 mg-3 mg/3 ml Soln] Pantoprazole [Protonix] 40 mg PO AC-BRKFST tab 03/18/24 08/26/24 Rx Acetaminophen Tab [Tylenol] 650 mg PO Q6H PRN 06/30/24 08/26/24 History Aspirin EC [Ecotrin Low Dose] 81 mg PO DAILY 06/30/24 08/26/24 History Atorvastatin [Lipitor] 40 mg PO HS 06/30/24 08/26/24 History Fluticasone/Umeclidin/Vilanter 1 puff INHALATION RT-DAILY 06/30/24 08/26/24 History [Trelegy Ellipta 100-62.5-25] Ipratropium [place] [Atrovent Hfa] 2 puff INHALATION RT-Q6H PRN 06/30/24 08/26/24 History Polyvinyl Alcohol/Povidone [Clear 1 drop BOTH EYES QID PRN 06/30/24 08/26/24 History Eyes Natural Tears Drop] Metoprolol Succinate (ER) [Toprol 25 mg PO DAILY #30 tab 07/05/24 08/26/24 Rx XL] Torsemide [Demadex] 40 mg PO DAILY #30 tab 07/05/24 08/26/24 Rx Insulin Aspart [NovoLOG Flexpen] See Protocol SQ AC-TID 08/26/24 08/26/24 History Insulin Glargine,Hum.rec.anlog 10 - 12 units SQ DAILY 08/26/24 08/26/24 History [Lantus Solostar Pen] Allergies Allergy/AdvReac Type Severity Reaction Status Date / Time Sulfa (Sulfonamide Allergy Rash/Hives Verified 08/26/24 08:41 Antibiotics) Physical Exam Vitals: Vital Signs Temp Pulse Resp BP Pulse Ox 08/26/24 09:07 92 18 125/80 96 08/26/24 06:26 90 08/26/24 06:19 90 08/26/24 05:01 97.4 F L 85 20 122/73 100 Intake and Output 08/25/24 08/26/24 08/26/24 22:59 06:59 14:59 Other: Weight 64 kg Results - Lab Results Most recent lab results Calcium 8.6 mg/dL (8.4-10.2) 08/26/24 05:08 Magnesium 1.9 mg/dL (1.6-2.3) 08/26/24 05:08 08/26/24 05:08 08/26/24 05:08 Assessment and Plan Plan: Assessment: 1. End-stage renal disease maintained on hemodialysis on Monday schedule. 2. Volume overload. 3. Acute on chronic systolic CHF ejection fraction of 20 to 25% with moderate to severe mitral regurgitation. 4. Coronary artery disease status post CABG. 5. Diabetes mellitus. 6. Hypervolemic hyponatremia. Plan: Hemodialysis today. Another treatment tomorrow mostly for ultrafiltration. Low-salt diet and 1500 cc fluid restriction. Add torsemide 40 mg daily. Okay to add Entresto as long as blood pressure tolerates. Thank you for the consultation. I will continue to follow the patient with you during her hospital stay.
[2024-08-26 11:04] LABS: Magnesium 1.8 mg/dL (1.6-2.3)
[2024-08-26] MEDS ORDERED: ACETAMINOPHEN TAB 325 MG TAB PO PRN (15:55)
[2024-08-26] MEDS ORDERED: IPRATROPIUM-ALBUTEROL 3 ML NEB INHALATION PRN (15:55)
[2024-08-26] MEDS ORDERED: IPRATROPIUM 0.5 MG/2.5 ML NEBU INHALATION PRN (15:55)
[2024-08-26] MEDS ORDERED: ARTIFICIAL TEARS-HYPROMELLOSE DROPS 15 ML BTL BOTH EYES PRN (15:55)
--- NOTE | 2024-08-26 15:57 | P.HPIM ---
History of Present Illness H&P Date: 08/26/24 Chief Complaint: Dyspnea 5-year-old woman with medical history of COPD, CAD status post CABG, end-stage renal disease, hypertension, hyperlipidemia presented for evaluation of dyspnea. Patient says that she routinely goes to her dialysis sessions on Monday, Monday, Monday which she receives through [facility] through a right upper extremity permacath. Typically she gets 3 to 4 L of fluid removed, however, over the last couple days she started to feel increasingly short of breath and have decreased exercise tolerance. She denies fevers, chills, nausea, vomiting, chest pain, palpitations, syncope, presyncope, cough, abdominal pain, constipation, diarrhea, dysuria, dyschezia, numbness/weakness of extremities. In the emergency room, patient was afebrile, 132/91, heart rate 94, 94% on 2 L nasal cannula. CBC was remarkable for anemia to 11. Basic metabolic panel showed hyponatremia to 131, CO2 of 20, no anion gap, BUN of 54, creatinine of 3.27. Liver function test showed elevation of AST to 133, ALT of 57, alkaline phosphatase of 338. Troponin is 0.013 then trended to 0.016 then trended to 0.014. BNP was 32,900. Coags are unremarkable. EKG showed sinus rhythm with left bundle galindo block morphology. Chest x-ray, personally interpreted shows bilateral increased reticular opacities, worse on the left than the right. Case is discussed with the emergency room physician decision made to admit the patient to medicine for further management of heart failure exacerbation. All Systems reviewed and pertinent positives and negatives noted in HPI, all other symptoms are negative Gen: In NAD, non-toxic HEENT: normocephalic, atraumatic, hearing acuity is intant, mucous membranes moist CVS: perfusing all extremities well, no pitting edema, Respiratory: symmetric chest expansion, no accessory muscle use, bilateral crackles GI: soft, NTTP, ND, : no suprapubic tenderness, no CVA tenderness MSK/Derm: no rashes, cyanosis Neuro: CN II-XII intact, no motor weakness, Psych: cooperative, euthymic mood, judgment and insight is intact Labs and imaging as above Assessment/plan: Acute hypoxemic respiratory failure Acute on chronic diastolic heart failure End-stage renal disease -Admit to medicine with telemetry -Cardiology consulted -Nephrology consulted -Increase torsemide -Strict ins and outs -Fluid restriction, low-salt diet COPD without exacerbation Hypothyroidism Diabetes type 2 -Home medications reviewed and reconciled -Add low-dose sliding scale insulin Patient is full code DVT prophylaxis with heparin 3 times daily Past Medical History Past Medical History: Coronary Artery Disease (CAD), Chest Pain / Angina, Heart Failure, COPD, CVA/TIA, Diabetes Mellitus, Fibromyalgia, GERD/Reflux, Hyperlipidemia, Hypertension, Liver Disease, Myocardial Infarction ([place]), Osteoarthritis (OA), Renal Disease, Thyroid Disorder Additional Past Medical History / Comment(s): NEUROPATHY BILATERAL FEET, DDD NECK AND LOWER BACK, hiatal hernia, states no need for BP med anymore(gets orthostatic hypotension-has "medtronic heart loop monitor"), hx hepatitis as a kid, hx fractrured left wrist, hx stroke 03/03/22-problems with balance since. Last Myocardial Infarction Date:: 02/2024 History of Any Multi-Drug Resistant Organisms: MRSA Date of last positivie culture/infection: 2017 MDRO Source:: stomach Past Surgical History: Adenoidectomy, Back Surgery, Bladder Surgery, Hysterectomy, Orthopedic Surgery, Tonsillectomy, Tubal Ligation Additional Past Surgical History / Comment(s): Debridement right foot, PICC line placed and later removed, bladder suspension, exploratory laparotomy, right great toe amputation, pins right in foot, cataracts removed, left wrist ORIF, loop heart monitor placed 02/2022. Past Anesthesia/Blood Transfusion Reactions: No Reported Reaction, Motion Sickness Additional Past Anesthesia/Blood Transfusion Reaction / Comment(s): . Type of Cardiac Device: Loop Past Psychological History: Anxiety, Depression Smoking Status: Former smoker Past Alcohol Use History: Occasional Past Drug Use History: Marijuana, Methamphetamine - Past Family History Sister(s) Family Medical History: Coronary Artery Disease (CAD) Mother Family Medical History: Pulmonary Embolus Additional Family Medical History / Comment(s): . Father Additional Family Medical History / Comment(s): at 26yrs old--accident at work Medications and Allergies Home Medications Medication Instructions Recorded Confirmed Type Levothyroxine Sodium [Synthroid] 175 mcg PO DAILY 02/02/22 08/26/24 History Ondansetron [Zofran] 4 mg PO Q8H PRN 02/06/24 08/26/24 History traZODone HCL [Desyrel] 50 mg PO HS 02/09/24 08/26/24 History Clopidogrel [Plavix] 75 mg PO DAILY tab 03/18/24 08/26/24 Rx Ipratropium-Albuterol Nebulize 3 ml INHALATION RT-Q2H PRN each 03/18/24 08/26/24 Rx [Duoneb 0.5 mg-3 mg/3 ml Soln] Pantoprazole [Protonix] 40 mg PO AC-BRKFST tab 03/18/24 08/26/24 Rx Acetaminophen Tab [Tylenol] 650 mg PO Q6H PRN 06/30/24 08/26/24 History Aspirin EC [Ecotrin Low Dose] 81 mg PO DAILY 06/30/24 08/26/24 History Atorvastatin [Lipitor] 40 mg PO HS 06/30/24 08/26/24 History Fluticasone/Umeclidin/Vilanter 1 puff INHALATION RT-DAILY 06/30/24 08/26/24 History [Trelegy Ellipta 100-62.5-25] Ipratropium [place] [Atrovent Hfa] 2 puff INHALATION RT-Q6H PRN 06/30/24 08/26/24 History Polyvinyl Alcohol/Povidone [Clear 1 drop BOTH EYES QID PRN 06/30/24 08/26/24 History Eyes Natural Tears Drop] Metoprolol Succinate (ER) [Toprol 25 mg PO DAILY #30 tab 07/05/24 08/26/24 Rx XL] Torsemide [Demadex] 40 mg PO DAILY #30 tab 07/05/24 08/26/24 Rx Insulin Aspart [NovoLOG Flexpen] See Protocol SQ AC-TID 08/26/24 08/26/24 H istory Insulin Glargine,Hum.rec.anlog 10 - 12 units SQ DAILY 08/26/24 08/26/24 History [Lantus Solostar Pen] Allergies Allergy/AdvReac Type Severity Reaction Status Date / Time Sulfa (Sulfonamide Allergy Rash/Hives Verified 08/26/24 08:41 Antibiotics) Physical Exam Osteopathic Statement: *. No significant issues noted on an osteopathic structural exam other than those noted in the History and Physical/Consult. Vitals: Vital Signs Temp Pulse Resp BP Pulse Ox 08/26/24 12:55 87 20 130/76 100 08/26/24 11:53 20 08/26/24 11:43 21 96 08/26/24 10:57 97.6 F 94 18 132/91 94 L 08/26/24 09:07 92 18 125/80 96 08/26/24 06:26 90 08/26/24 06:19 90 08/26/24 05:01 97.4 F L 85 20 122/73 100 Intake and Output 08/26/24 08/26/24 08/26/24 06:59 14:59 22:59 Other: Weight 64 kg Results CBC & Chem 7: 08/26/24 05:08 08/26/24 05:08 Labs: Abnormal Lab Results - Last 24 Hours (Table) 08/26/24 08/26/24 08/26/24 Range/Units 05:08 05:08 10:27 RBC 3.39 L (3.80-5.40) m/uL Hgb 11.0 L (11.4-16.0) gm/dL MCV 104.3 H D (80.0-100.0) fL RDW 18.2 H (11.5-15.5) % Macrocytosis Marked A Sodium 131 L (137-145) mmol/L Carbon Dioxide 20 L (22-30) mmol/L BUN 54 H (7-17) mg/dL Creatinine 3.27 H (0.52-1.04) mg/dL Glucose 116 H (74-99) mg/dL Hemoglobin A1c 9.0 H (<=6.0) % AST 133 H (14-36) U/L ALT 57 H (4-34) U/L Alkaline Phosphatase 338 H (38-126) U/L
[2024-08-26 16:15] LABS: Chol/HDL Ratio 2.59 Ratio; LDL Cholesterol,Calculated 70.5 mg/dL (0.0-131.0)
[2024-08-26] MEDS: HEPARIN SODIUM,PORCINE 5,000 UNIT/ML 1 ML VIAL SQ SCH (17:28)
[2024-08-26 17:29] LABS: Glucose,Whole Blood 152 mg/dL (70-110)
[2024-08-26] MEDS: diphenhydrAMINE 25 MG CAP PO SCH (17:30)
[2024-08-26] MEDS: HYDROcodone/APAP 5-325MG 1 EACH TAB PO PRN (17:30)
[2024-08-26] MEDS: INSULIN ASPART (NovoLOG) 100 UNIT/ML VIAL SQ SCH (17:43)
[2024-08-26] MEDS: TORSEMIDE 20 MG TAB PO SCH (17:44)
[2024-08-26] MEDS: IPRATROPIUM 0.5 MG/2.5 ML NEBU INHALATION SCH (19:20)
[2024-08-26] MEDS: SYMBICORT 80-4.5 MCG INHALER INHALATION SCH (19:20)
[2024-08-26] MEDS ORDERED: ATORVASTATIN 40 MG TAB PO SCH ×2 (21:00)
[2024-08-26] MEDS: SACUBITRIL/VALSARTAN 24 MG-26 MG TABLET PO SCH (22:28)
[2024-08-26] MEDS: traZODone HCL 50 MG TAB PO SCH (22:28)
[2024-08-27 05:45] LABS: Glucose,Whole Blood 337 mg/dL (70-110)
[2024-08-27] MEDS: PANTOPRAZOLE 40 MG TABLET PO SCH (06:20)
[2024-08-27] MEDS: LEVOTHYROXINE 88 MCG TAB PO SCH (06:20)
[2024-08-27] MEDS: INSULIN DETEMIR (LEVEMIR) 100 UNIT/ML SYR SQ SCH (07:53)
[2024-08-27] MEDS: ASPIRIN 81 MG PO SCH (07:53)
[2024-08-27] MEDS ORDERED: NON FORMULARY DRUG (Fluticasone/Umeclidin/Vilanter [Trelegy Ellipta 100-62.5-25] 1 EACH Bl INHALATION SCH (08:00)
[2024-08-27] MEDS ORDERED: TORSEMIDE 20 MG TAB PO SCH (09:00)
[2024-08-27] MEDS ORDERED: METOPROLOL SUCCINATE (ER) 25 MG TAB.ER.24H PO SCH (09:00)
[2024-08-27] MEDS ORDERED: CLOPIDOGREL 75 MG TAB PO SCH (09:00)
[2024-08-27 09:12] LABS: ALT 38 U/L (8-44); AST 36 U/L (13-35); Albumin 3.1 g/dL (3.8-4.9); Albumin/Globulin Ratio 1.15 Ratio (1.60-3.17); Alkaline Phosphatase 299 U/L (41-126); BUN/Creat Ratio 12.77 Ratio (12.00-20.00); Blood Urea Nitrogen 28.1 mg/dL (9.0-27.0); Calcium 8.2 mg/dL (8.7-10.3); Carbon Dioxide 21.7 mmol/L (21.6-31.8); Chloride 96 mmol/L (96-109); Globulin 2.7 g/dL (1.6-3.3); Glucose 363 mg/dL (70-110); Magnesium 1.9 mg/dL (1.5-2.4); Phosphorus 6.2 mg/dL (2.4-5.1); Potassium 4.3 mmol/L (3.5-5.5); Sodium 133 mmol/L (135-145); Total Bilirubin 0.4 mg/dL (0.3-1.2); Total Protein 5.8 g/dL (6.2-8.2)
[2024-08-27 10:19] LABS: HCT 31.7 % (37.2-46.3); HGB 9.7 g/dL (12.0-15.0); MCH 32.4 pg (27.0-32.0); MCHC 30.6 g/dL (32.0-37.0); Mean Platelet Volume 10.6 FL (9.5-12.2); NRBC Per 100 WBC 0 X 10*3/uL (0.00-0.01); Platelet Count 218 X 10*3/uL (140-440); RBC 2.99 X 10*6/uL (4.10-5.20); RDW 19.4 % (11.5-14.5); WBC 5.09 X 10*3/uL (4.50-10.00)
--- NOTE | 2024-08-27 10:59 | P.PN ---
Subjective Patient is seen in follow-up for end-stage renal disease. She is maintained on hemodialysis on Monday schedule. Tolerating dialysis well. Denies chest pain or shortness of breath. States she had soup over the weekend which likely led to her volume overload. Vital signs are stable. General: No acute distress. HEENT: Head exam is unremarkable. On nasal cannula. LUNGS: No audible rhonchi or wheezes. HEART: Rate and Rhythm are regular. ABDOMEN: Nontender. EXTREMITITES: 1+ edema. Objective - Vital Signs Vital signs: Vital Signs Temp 97.7 F 08/27/24 07:42 Pulse 84 08/27/24 09:33 Resp 14 08/27/24 07:42 BP 121/75 08/27/24 07:42 Pulse Ox 94 L 08/27/24 09:15 FiO2 Intake & Output 08/26/24 08/27/24 08/27/24 18:59 06:59 18:59 Intake Total 400 Output Total 6400 Balance -6000 Weight 64 kg Intake: Hemodialysis 400 Output: Hemodialysis 3400 Hemodialysis Net Amount 3000 Other: # Voids 0 - Labs CBC & Chem 7: 08/27/24 05:20 08/27/24 05:20 Labs: Abnormal Lab Results - Last 24 Hours (Table) 08/26/24 08/26/24 08/26/24 Range/Units 10:27 10:27 17:27 RBC (4.10-5.20) X 10*6/uL Hgb (12.0-15.0) g/dL Hct (37.2-46.3) % MCV (80.0-97.0) FL MCH (27.0-32.0) pg MCHC (32.0-37.0) g/dL RDW (11.5-14.5) % Sodium (135-145) mmol/L Anion Gap (4.00-12.00) mmol/L BUN (9.0-27.0) mg/dL Creatinine (0.6-1.5) mg/dL Est GFR (CKD-EPI) (>=60) Glucose (70-110) mg/dL POC Glucose (mg/dL) 152 H (70-110) mg/dL Hemoglobin A1c 9.0 H (<=6.0) % Calcium (8.7-10.3) mg/dL Phosphorus (2.4-5.1) mg/dL AST (13-35) U/L Alkaline Phosphatase (41-126) U/L Total Protein (6.2-8.2) g/dL Albumin (3.8-4.9) g/dL Albumin/Globulin Ratio (1.60-3.17) Ratio HDL Cholesterol 62.10 H (40.00-60.00) mg/dL Vitamin B12 950.0 H (200.0-944.0) pg/mL 08/27/24 08/27/24 08/27/24 Range/Units 05:20 05:20 05:40 RBC 2.99 L (4.10-5.20) X 10*6/uL Hgb 9.7 L (12.0-15.0) g/dL Hct 31.7 L (37.2-46.3) % MCV 106.0 H (80.0-97.0) FL MCH 32.4 H (27.0-32.0) pg MCHC 30.6 L (32.0-37.0) g/dL RDW 19.4 H (11.5-14.5) % Sodium 133 L (135-145) mmol/L Anion Gap 15.30 H (4.00-12.00) mmol/L BUN 28.1 H (9.0-27.0) mg/dL Creatinine 2.2 H (0.6-1.5) mg/dL Est GFR (CKD-EPI) 25 L (>=60) Glucose 363 H (70-110) mg/dL POC Glucose (mg/dL) 337 H (70-110) mg/dL Hemoglobin A1c (<=6.0) % Calcium 8.2 L (8.7-10.3) mg/dL Phosphorus 6.2 H (2.4-5.1) mg/dL AST 36 H (13-35) U/L Alkaline Phosphatase 299 H (41-126) U/L Total Protein 5.8 L (6.2-8.2) g/dL Albumin 3.1 L (3.8-4.9) g/dL Albumin/Globulin Ratio 1.15 L (1.60-3.17) Ratio HDL Cholesterol (40.00-60.00) mg/dL Vitamin B12 (200.0-944.0) pg/mL Assessment and Plan Plan: Assessment: 1. End-stage renal disease maintained on hemodialysis on Monday schedule. 2. Volume overload. Improved with UF. 3. Acute on chronic systolic CHF ejection fraction of 20 to 25% with moderate to severe mitral regurgitation. 4. Coronary artery disease status post CABG. 5. Diabetes mellitus. 6. Hypervolemic hyponatremia. Improved. Plan: Currently seen while undergoing hemodialysis. Another treatment tomorrow per her outpatient schedule. Low-salt diet and 1500 cc fluid restriction. Advised patient to maintain this diet regimen upon discharge. Maintain torsemide.
[2024-08-27 11:08] VITALS: BMI 21.4
--- NOTE | 2024-08-27 12:08 | P.PN ---
Subjective HISTORY OF PRESENT ILLNESS: Patient is a 59-year-old female known to Dr. Saunders. She has a prior history of coronary artery disease with ischemic cardiomyopathy. She also has a history of type 2 diabetes, end-stage renal disease, hypothyroidism, history of tobacco use and COPD. January 2024 she had hospitalization for NSTEMI. In February 2020 she underwent CABG x 4, RUSSO to LAD, and diagonal, SVG to PDA and second OM with closure of left atrial appendage. Her last hospitalization was in June 2024 when she was treated for CHF exacerbation. During that time she also had COVID-19 infection. This time she presented to the hospital because of increased worsening shortness of breath, difficulty breathing along. On admission her NT-proBNP was 33,000, initial troponin negative, creatinine of 3.27, previously Reported creatinine was 1.6. She is hemodialysis dependent through a subclavian port. She is getting evaluated for possible home-based peritoneal dialysis versus hemodialysis. Chest x-ray shows signs of pulmonary congestion. In February and June she had a surface echocardiogram which showed cardiomyopathy with a EF of 20% with severe mitral regurgitation. However she had a [place] with Dr. Berman in February which only reported mild secondary MR. 08/27/2024 Patient examined this morning at the bedside. Patient states that she underwent hemodialysis yesterday. She states that she is feeling better today. She denies any chest pain or pressure. Denies any shortness of breath. She does report itching of her extremities. 2D echo remains pending. PHYSICAL EXAM: VITAL SIGNS: Reviewed. GENERAL: Well-developed in no acute distress. NECK: Supple. No JVD or thyromegaly LUNGS: Respirations even and unlabored. Lungs essentially clear to auscultation bilaterally. HEART: Regular rate and rhythm. S1 and S2 heard. Systolic murmur noted. EXTREMITIES: Normal range of motion. No clubbing or cyanosis. Peripheral pulses intact. Trace bilateral lower extremity edema ASSESSMENT: Shortness of breath Acute on chronic heart failure with reduced EF, 20% Acute hypoxic respiratory failure Coronary artery disease with previous four-vessel CABG, 2019 Valvular heart disease with TTE reporting severe MR, [place] reporting mild se condary MR Hypertension Diabetes End-stage renal disease on hemodialysis Ischemic cardiomyopathy History of CVA PLAN: Continue current cardiac medications 2D echo has been ordered. Await results. Nephrology following. Patient currently on oral diuretics Recommend outpatient evaluation for ICD implantation Patient is currently stable from a cardiac perspective Further recommendations pending patient course Nurse practitioner note has been reviewed by physician. Signing provider agrees with the documented findings, assessment, and plan of care documented by [employer] as a scribe. Objective - Vital Signs Vital signs: Vital Signs Temp 97.7 F 08/27/24 12:00 Pulse 84 08/27/24 12:00 Resp 16 08/27/24 12:00 BP 127/72 08/27/24 12:00 Pulse Ox 97 08/27/24 12:00 FiO2 Intake & Output 08/26/24 08/27/24 08/27/24 18:59 06:59 18:59 Intake Total 400 400 Output Total 6400 4400 Balance -6000 -4000 Weight 64 kg 64 kg Intake: Hemodialysis 400 400 Output: Hemodialysis 3400 2400 Hemodialysis Net Amount 3000 2000 Other: # Voids 0 - Labs CBC & Chem 7: 08/27/24 05:20 08/27/24 05:20 Labs: Abnormal Lab Results - Last 24 Hours (Table) 08/26/24 08/26/24 08/26/24 Range/Units 10:27 10:27 17:27 RBC (4.10-5.20) X 10*6/uL Hgb (12.0-15.0) g/dL Hct (37.2-46.3) % MCV (80.0-97.0) FL MCH (27.0-32.0) pg MCHC (32.0-37.0) g/dL RDW (11.5-14.5) % Sodium (135-145) mmol/L Anion Gap (4.00-12.00) mmol/L BUN (9.0-27.0) mg/dL Creatinine (0.6-1.5) mg/dL Est GFR (CKD-EPI) (>=60) Glucose (70-110) mg/dL POC Glucose (mg/dL) 152 H (70-110) mg/dL Hemoglobin A1c 9.0 H (<=6.0) % Calcium (8.7-10.3) mg/dL Phosphorus (2.4-5.1) mg/dL AST (13-35) U/L Alkaline Phosphatase (41-126) U/L Total Protein (6.2-8.2) g/dL Albumin (3.8-4.9) g/dL Albumin/Globulin Ratio (1.60-3.17) Ratio HDL Cholesterol 62.10 H (40.00-60.00) mg/dL Vitamin B12 950.0 H (200.0-944.0) pg/mL 08/27/24 08/27/24 08/27/24 Range/Units 05:20 05:20 05:40 RBC 2.99 L (4.10-5.20) X 10*6/uL Hgb 9.7 L (12.0-15.0) g/dL Hct 31.7 L (37.2-46.3) % MCV 106.0 H (80.0-97.0) FL MCH 32.4 H (27.0-32.0) pg MCHC 30.6 L (32.0-37.0) g/dL RDW 19.4 H (11.5-14.5) % Sodium 133 L (135-145) mmol/L Anion Gap 15.30 H (4.00-12.00) mmol/L BUN 28.1 H (9.0-27.0) mg/dL Creatinine 2.2 H (0.6-1.5) mg/dL Est GFR (CKD-EPI) 25 L (>=60) Glucose 363 H (70-110) mg/dL POC Glucose (mg/dL) 337 H (70-110) mg/dL Hemoglobin A1c (<=6.0) % Calcium 8.2 L (8.7-10.3) mg/dL Phosphorus 6.2 H (2.4-5.1) mg/dL AST 36 H (13-35) U/L Alkaline Phosphatase 299 H (41-126) U/L Total Protein 5.8 L (6.2-8.2) g/dL Albumin 3.1 L (3.8-4.9) g/dL Albumin/Globulin Ratio 1.15 L (1.60-3.17) Ratio HDL Cholesterol (40.00-60.00) mg/dL Vitamin B12 (200.0-944.0) pg/mL
[2024-08-27 12:13] LABS: Glucose,Whole Blood 147 mg/dL (70-110)
[2024-08-27 13:34] LABS: Anisocytosis (M) 2+; Basophils # (A) 0.05 X 10*3/uL (0.00-0.10); Elliptocytes 2+; Eosinophils # (A) 0.26 X 10*3/uL (0.04-0.35); Eosinophils % (A) 5.1 %; Lymphocytes % (A) 15.7 %; Macrocytosis (M) 2+; Monocytes # (A) 0.43 X 10*3/uL (0.20-1.00); Monocytes % (A) 8.4 %; Neutrophils # (A) 3.53 X 10*3/uL (1.80-7.70); Neutrophils % (A) 69.4 %; Polychromasia 2+
--- NOTE | 2024-08-27 15:35 | P.PN ---
Subjective Progress Note Date: 08/27/24 Hospital course: Patient is a 59-year-old female with a past medical history of CAD status post CABG x 4 on 02/26/24, ischemic cardiomyopathy with previous EF reported to be 15 to 20%, hypertension, hyperlipidemia, insulin-dependent diabetes mellitus, hypothyroidism, ESRD recently started on hemodialysis in March 2024 and COPD. She presented to the emergency department on 08/26/2024 with a chief complaint of shortness of breath and exertional dyspnea. Upon arrival to our facility, patient underwent evaluation in the emergency department. Vital signs upon a rrival show blood pressure 122/73, heart rate 85, respiratory rate 20, temp 97.4 F, and SpO2 100% on 2 L. EKG completed showing sinus mechanism at 88 bpm with a left bundle branch block. Chest x-ray showing persistent mild cardiomegaly with bilateral pleural effusions left greater than right and mild central vascular congestion consistent with CHF. Labs were completed and reviewed. CBC showing hemoglobin 11.0 and MCV 104.3. Coagulation profile normal findings. BMP showing hyponatremia with sodium of 131, hypocarbia with bicarb of 28, and elevated renal function consistent with ESRD with BUN of 54, creatinine of 3.27, GFR of 15. Blood glucose 116. Liver profile showing transaminitis with AST of 133, ALT of 57, and alkaline phosphatase of 338. Troponin 0.013 and proBNP was 32,900. Patient was admitted under our services for acute on chronic systolic heart failure exacerbation with consultation to cardiology for CHF exacerbation and nephrology for needed dialysis. Troponins trended overnight resulting at 0.013, 0.016, and 0.014. Hemoglobin A1c resulting at 9.0%. Lipid profile unremarkable. Vitamin B12 was elevated at 950. Physical exam: Vital signs reviewed and stable. General: Nontoxic, no distress and appears stated age. Derm: Skin warm and dry, normal coloration for ethnicity. Head: Atraumatic, normocephalic and symmetric. Eyes: EOM's intact, no lid lag, and anicteric sclera Mouth: no lip lesions, mucus membranes moist Cardiovascular: regular rate and rhythm with normal S1S2, systolic murmur, positive posterior tibial pulses bilaterally, and cap refill < 2 seconds. Permacath right anterior chest. Lungs: Respirations even, regular, and unlabored on room air. Lungs diminished, no rhonchi, no rales, no wheezing, and no accessory muscle usage. Abdominal: soft, nontender to palpation, no guarding, no appreciable organomegaly Ext: ROM intact. No gross muscle atrophy, 1+ pitting bilateral lower extremity edema, no contractures Neuro: Speech clear, face symmetrical and CN II-XII grossly intact with no noted focal neuro deficits Psych: Alert and oriented to person, place, time, and situation. Appropriate and pleasant affect. Assessment and Plan of Care: Acute on chronic systolic heart failure exacerbation CAD status post CABG x 4 Ischemic cardiomyopathy -Cardiology consulted, discussed plan of care with Dr. Montgomery. -Telemetry monitoring -Troponins trended overnight resulting at 0.013, 0.016, and 0.014. Hemoglobin A1c resulting at 9.0%. Lipid profile unremarkable. -ProBNP 32,900 -Daily weights and Close monitoring of I's and O's -IV Lasix discontinued and patient placed back on torsemide 40 mg daily. -Continue cardiac medication regimen with aspirin 81 mg daily, Plavix 75 mg daily, metoprolol 25 mg daily, atorvastatin 40 mg daily Entresto 24-26 mg tablets twice daily, and torsemide 40 mg daily. -Continued close monitoring of electrolytes while diuresing. -Echocardiogram ESRD on hemodialysis -Nephrology following and managing dialysis. Patient undergoing hemodialysis this morning. Insulin-dependent diabetes mellitus with hyperglycemia -Hemoglobin A1c at 9.0%. -Continue glycemic protocol with NovoLog sliding scale and scheduled Levemir 12 units daily. Hypertension -Continue daily medication regimen with metoprolol succinate 25 mg daily. Hyperlipidemia -Lipid profile unremarkable. -Continue atorvastatin 40 mg daily. Hypothyroidism -Continue daily medication regimen with levothyroxine 176 mcg daily. Data and imaging reviewed: -Labs reviewed. Troponins trended overnight resulting at 0.013, 0.016, and 0.014. Hemoglobin A1c resulting at 9.0%. Lipid profile unremarkable. Vitamin B12 was elevated at 950. CBC showing macrocytic anemia with hemoglobin 9.7 and MCV of 106.0. BMP showing hyponatremia with sodium of 133 and elevated anion gap of 15.30. Renal function consistent with ESRD with BUN of 28.1, creatinine of 2.2, GFR of 25. Blood glucose elevated at 336. Magnesium 1.9. Liver profile showing elevated but improving transaminitis with AST of 36, ALT of 38, and alkaline phosphatase of 299. -Vital signs reviewed. Blood pressure 130/74, heart rate 80, respiratory rate 16, temp 97.7 F, and SpO2 of 97% on 2 L O2. CODE STATUS: Full code DVT prophylaxis: Heparin Anticipated discharge date: Pending clinical course Anticipated discharge place: Home Patient was seen independently by Nurse Pracitioner. This document was prepared using [employer] dictation software. Please allow for errors in storage management architect, while rare they do occur. Yahir Haro NP rendered care for this patient independently, reviewed the findings and plan as documented in the note above and agree with plan. I did not physically speak with or examine the patient on this date. Objective - Vital Signs Vital signs: Vital Signs Temp 98.0 F 08/27/24 13:50 Pulse 86 08/27/24 13:50 Resp 16 08/27/24 13:50 BP 108/66 08/27/24 13:50 Pulse Ox 94 L 08/27/24 13:50 FiO2 Intake & Output 08/26/24 08/27/24 08/27/24 18:59 06:59 18:59 Intake Total 400 640 Output Total 6400 4400 Balance -6000 -3760 Weight 64 kg 64 kg Intake: Oral 240 Hemodialysis 400 400 Output: Hemodialysis 3400 2400 Hemodialysis Net Amount 3000 2000 Other: # Voids 0 2 - Labs CBC & Chem 7: 08/27/24 05:20 08/27/24 05:20 Labs: Abnormal Lab Results - Last 24 Hours (Table) 08/26/24 08/26/24 08/27/24 Range/Units 10:27 17:27 05:20 RBC 2.99 L (4.10-5.20) X 10*6/uL Hgb 9.7 L (12.0-15.0) g/dL Hct 31.7 L (37.2-46.3) % MCV 106.0 H (80.0-97.0) FL MCH 32.4 H (27.0-32.0) pg MCHC 30.6 L (32.0-37.0) g/dL RDW 19.4 H (11.5-14.5) % Lymphocytes # 0.80 L (0.90-5.00) X 10*3/uL Polychromasia 2+ A Anisocytosis (manual) 2+ A Macrocytosis (manual) 2+ A Elliptocytes 2+ A Sodium (135-145) mmol/L Anion Gap (4.00-12.00) mmol/L BUN (9.0-27.0) mg/dL Creatinine (0.6-1.5) mg/dL Est GFR (CKD-EPI) (>=60) Glucose (70-110) mg/dL POC Glucose (mg/dL) 152 H (70-110) mg/dL Calcium (8.7-10.3) mg/dL Phosphorus (2.4-5.1) mg/dL AST (13-35) U/L Alkaline Phosphatase (41-126) U/L Total Protein (6.2-8.2) g/dL Albumin (3.8-4.9) g/dL Albumin/Globulin Ratio (1.60-3.17) Ratio HDL Cholesterol 62.10 H (40.00-60.00) mg/dL Vitamin B12 950.0 H (200.0-944.0) pg/mL 08/27/24 08/27/24 08/27/24 Range/Units 05:20 05:40 12:12 RBC (4.10-5.20) X 10*6/uL Hgb (12.0-15.0) g/dL Hct (37.2-46.3) % MCV (80.0-97.0) FL MCH (27.0-32.0) pg MCHC (32.0-37.0) g/dL RDW (11.5-14.5) % Lymphocytes # (0.90-5.00) X 10*3/uL Polychromasia Anisocytosis (manual) Macrocytosis (manual) Elliptocytes Sodium 133 L (135-145) mmol/L Anion Gap 15.30 H (4.00-12.00) mmol/L BUN 28.1 H (9.0-27.0) mg/dL Creatinine 2.2 H (0.6-1.5) mg/dL Est GFR (CKD-EPI) 25 L (>=60) Glucose 363 H (70-110) mg/dL POC Glucose (mg/dL) 337 H 147 H (70-110) mg/dL Calcium 8.2 L (8.7-10.3) mg/dL Phosphorus 6.2 H (2.4-5.1) mg/dL AST 36 H (13-35) U/L Alkaline Phosphatase 299 H (41-126) U/L Total Protein 5.8 L (6.2-8.2) g/dL Albumin 3.1 L (3.8-4.9) g/dL Albumin/Globulin Ratio 1.15 L (1.60-3.17) Ratio HDL Cholesterol (40.00-60.00) mg/dL Vitamin B12 (200.0-944.0) pg/mL
[2024-08-27 17:24] LABS: Glucose,Whole Blood 90 mg/dL (70-110)
[2024-08-27] MEDS: METOPROLOL SUCCINATE (ER) 25 MG TAB.ER.24H PO SCH (17:38)
[2024-08-27] MEDS: CLOPIDOGREL 75 MG TAB PO SCH (17:38)
[2024-08-27 19:50] LABS: Glucose,Whole Blood 151 mg/dL (70-110)
[2024-08-27] MEDS: ATORVASTATIN 40 MG TAB PO SCH (22:02)
[2024-08-28] MEDS: diphenhydrAMINE 25 MG CAP PO STA ×2 (00:50→01:55)
[2024-08-28 06:01] LABS: Glucose,Whole Blood 364 mg/dL (70-110)
[2024-08-28 08:40] LABS: HCT 34.9 % (37.2-46.3); HGB 10.6 g/dL (12.0-15.0); MCH 32.3 pg (27.0-32.0); MCHC 30.4 g/dL (32.0-37.0); MCV 106.4 FL (80.0-97.0); Mean Platelet Volume 10.3 FL (9.5-12.2); NRBC Per 100 WBC 0 X 10*3/uL (0.00-0.01); Platelet Count 212 X 10*3/uL (140-440); RBC 3.28 X 10*6/uL (4.10-5.20); RDW 19.5 % (11.5-14.5); WBC 5.74 X 10*3/uL (4.50-10.00)
[2024-08-28 08:58] LABS: ALT 29 U/L (8-44); AST 25 U/L (13-35); Albumin 2.9 g/dL (3.8-4.9); Albumin/Globulin Ratio 1.07 Ratio (1.60-3.17); Alkaline Phosphatase 254 U/L (41-126); BUN/Creat Ratio 9.32 Ratio (12.00-20.00); Blood Urea Nitrogen 23.3 mg/dL (9.0-27.0); Calcium 8.2 mg/dL (8.7-10.3); Carbon Dioxide 24.1 mmol/L (21.6-31.8); Chloride 97 mmol/L (96-109); Globulin 2.7 g/dL (1.6-3.3); Glucose 360 mg/dL (70-110); Magnesium 1.8 mg/dL (1.5-2.4); Potassium 4.7 mmol/L (3.5-5.5); Sodium 132 mmol/L (135-145); Total Bilirubin 0.3 mg/dL (0.3-1.2); Total Protein 5.6 g/dL (6.2-8.2)
[2024-08-28 09:40] LABS: Glucose,Whole Blood 49 mg/dL (70-110)
[2024-08-28 09:58] LABS: Glucose,Whole Blood 57 mg/dL (70-110)
[2024-08-28 11:01] LABS: Glucose,Whole Blood 71 mg/dL (70-110)
--- NOTE | 2024-08-28 11:05 | P.PN ---
Subjective Patient is seen in follow-up for end-stage renal disease. She is maintained on hemodialysis on Monday schedule. Tolerating dialysis well. Denies chest pain or shortness of breath. No active complaints. Vital signs are stable. General: No acute distress. HEENT: Head exam is unremarkable. On nasal cannula. LUNGS: No audible rhonchi or wheezes. HEART: Rate and Rhythm are regular. ABDOMEN: Nontender. EXTREMITITES: 1+ edema. Objective - Vital Signs Vital signs: Vital Signs Temp 97.4 F L 08/28/24 09:59 Pulse 82 08/28/24 09:59 Resp 18 08/28/24 09:59 BP 110/61 08/28/24 09:59 Pulse Ox 94 L 08/28/24 07:24 FiO2 Intake & Output 08/27/24 08/28/24 08/28/24 18:59 06:59 18:59 Intake Total 8282 086 6385 Output Total 4400 6400 Balance -3360 720 -4980 Weight 64 kg Intake: Oral 589 685 6260 Hemodialysis 400 400 Output: Hemodialysis 2400 3400 Hemodialysis Net Amount 2000 3000 Other: # Voids 2 1 - Labs CBC & Chem 7: 08/28/24 04:06 08/28/24 04:06 Labs: Abnormal Lab Results - Last 24 Hours (Table) 08/27/24 08/27/24 08/27/24 Range/Units 05:20 12:12 19:49 RBC (4.10-5.20) X 10*6/uL Hgb (12.0-15.0) g/dL Hct (37.2-46.3) % MCV (80.0-97.0) FL MCH (27.0-32.0) pg MCHC (32.0-37.0) g/dL RDW (11.5-14.5) % Lymphocytes # 0.80 L (0.90-5.00) X 10*3/uL Polychromasia 2+ A Anisocytosis (manual) 2+ A Macrocytosis (manual) 2+ A Elliptocytes 2+ A Sodium (135-145) mmol/L Creatinine (0.6-1.5) mg/dL Est GFR (CKD-EPI) (>=60) BUN/Creatinine Ratio (12.00-20.00) Ratio Glucose (70-110) mg/dL POC Glucose (mg/dL) 147 H 151 H (70-110) mg/dL Calcium (8.7-10.3) mg/dL Alkaline Phosphatase (41-126) U/L Total Protein (6.2-8.2) g/dL Albumin (3.8-4.9) g/dL Albumin/Globulin Ratio (1.60-3.17) Ratio 08/28/24 08/28/24 08/28/24 Range/Units 04:06 04:06 05:59 RBC 3.28 L (4.10-5.20) X 10*6/uL Hgb 10.6 L (12.0-15.0) g/dL Hct 34.9 L (37.2-46.3) % MCV 106.4 H (80.0-97.0) FL MCH 32.3 H (27.0-32.0) pg MCHC 30.4 L (32.0-37.0) g/dL RDW 19.5 H (11.5-14.5) % Lymphocytes # (0.90-5.00) X 10*3/uL Polychromasia Anisocytosis (manual) Macrocytosis (manual) Elliptocytes Sodium 132 L (135-145) mmol/L Creatinine 2.5 H (0.6-1.5) mg/dL Est GFR (CKD-EPI) 21 L (>=60) BUN/Creatinine Ratio 9.32 L (12.00-20.00) Ratio Glucose 360 H (70-110) mg/dL POC Glucose (mg/dL) 364 H (70-110) mg/dL Calcium 8.2 L (8.7-10.3) mg/dL Alkaline Phosphatase 254 H (41-126) U/L Total Protein 5.6 L (6.2-8.2) g/dL Albumin 2.9 L (3.8-4.9) g/dL Albumin/Globulin Ratio 1.07 L (1.60-3.17) Ratio 08/28/24 08/28/24 Range/Units 09:38 09:57 RBC (4.10-5.20) X 10*6/uL Hgb (12.0-15.0) g/dL Hct (37.2-46.3) % MCV (80.0-97.0) FL MCH (27.0-32.0) pg MCHC (32.0-37.0) g/dL RDW (11.5-14.5) % Lymphocytes # (0.90-5.00) X 10*3/uL Polychromasia Anisocytosis (manual) Macrocytosis (manual) Elliptocytes Sodium (135-145) mmol/L Creatinine (0.6-1.5) mg/dL Est GFR (CKD-EPI) (>=60) BUN/Creatinine Ratio (12.00-20.00) Ratio Glucose (70-110) mg/dL POC Glucose (mg/dL) 49 L* 57 L (70-110) mg/dL Calcium (8.7-10.3) mg/dL Alkaline Phosphatase (41-126) U/L Total Protein (6.2-8.2) g/dL Albumin (3.8-4.9) g/dL Albumin/Globulin Ratio (1.60-3.17) Ratio Assessment and Plan Plan: Assessment: 1. End-stage renal disease maintained on hemodialysis on Monday schedule. 2. Volume overload. Improved with UF. 3. Acute on chronic systolic CHF ejection fraction of 20 to 25% with moderate to severe mitral regurgitation. 4. Coronary artery disease status post CABG. 5. Diabetes mellitus. 6. Hypervolemic hyponatremia. Improved. Plan: Currently seen while undergoing hemodialysis. Low-salt diet and 1500 cc fluid restriction. Advised patient to maintain this diet regimen upon discharge. Maintain torsemide. Will also try to add for today for hemodialysis due to recurrent hospitalizations.
--- NOTE | 2024-08-28 11:52 | CA ---
Transthoracic Echo Report Name: Mila Camilo Age: 59 Gender: F : 1965 Exam Date: 08/28/2024 10:33 Exam Location: [facility] Ht (in): 68 Wt (lb): 141 Ordering Physician: Beatriz Marcum Attending/Referring Phys: [id number], Jossue Senior Research Engineer Caro Sena RDCS Procedure CPT: Indications: LV function, MR Cardiac Hx: Technical Quality: Good Contrast 1: Total Dose (mL): Contrast 2: Total Dose (mL): MEASUREMENTS (Male / Female) Normal Values 2D ECHO LV Diastolic Diameter PLAX 5.8 cm 4.2 - 5.9 / 3.9 - 5.3 cm LV Systolic Diameter PLAX 5.4 cm IVS Diastolic Thickness 1.0 cm 0.6 - 1.0 / 0.6 - 0.9 cm LVPW Diastolic Thickness 0.9 cm 0.6 - 1.0 / 0.6 - 0.9 cm LV Relative Wall Thickness 0.3 RV Internal Dim ED PLAX 1.8 cm LA Systolic Diameter LX 3.5 cm 3.0 - 4.0 / 2.7 - 3.8 cm LV Diastolic Volume MOD BP 107.4 cm??? 67 - 155 / 56 - 104 cm??? LV Systolic Volume MOD BP 85.4 cm??? - 58 / 19 - 49 cm??? LV Ejection Fraction MOD BP 20.4 % >= 55 % LV Cardiac Index MOD BP 1002.7 cm???/min???m??? LV Diastolic Volume MOD 4C 107.4 cm??? LV Systolic Volume MOD 4C 86.9 cm??? LV Ejection Fraction MOD 4C 19.1 % LV Cardiac Index MOD 4C 937.6 cm???/min???m??? LV Diastolic Length 4C 8.1 cm LV Systolic Length 4C 7.4 cm LV Diastolic Volume MOD 2C 105.3 cm??? LV Systolic Volume MOD 2C 77.8 cm??? LV Ejection Fraction MOD 2C 26.1 % LV Cardiac Index MOD 2C 1257.4 cm???/min???m??? LV Diastolic Length 2C 7.8 cm LV Systolic Length 2C 8.0 cm LA Volume 41.7 cm??? 18 - 58 / 22 - 52 cm??? LA Volume Index 23.8 cm???/m??? 16 - 28 cm???/m??? M-MODE Aortic Root Diameter MM 3.0 cm LA Systolic Diameter MM 3.3 cm LA Ao Ratio MM 1.1 AV Cusp Separation MM 1.8 cm DOPPLER AV Peak Velocity 135.6 cm/s AV Peak Gradient 7.4 mmHg AV Mean Velocity 92.7 cm/s AV Mean Gradient 4.0 mmHg AV Velocity Time Integral 24.8 cm AI Peak Velocity 338.1 cm/s AI Peak Gradient 45.7 mmHg AI Pressure Half Time 714.9 ms LVOT Peak Velocity 86.4 cm/s LVOT Peak Gradient 3.0 mmHg LVOT Velocity Time Integral 14.2 cm MV Area PHT 2.2 cm??? MR Peak Velocity 426.7 cm/s MR Peak Gradient 72.8 mmHg MR Flow Rate PISA 42.9 cm???/s Mitral E Point Velocity 70.9 cm/s Mitral A Point Velocity 59.3 cm/s Mitral E to A Ratio 1.2 MV Deceleration Time 337.7 ms TR Peak Velocity 258.3 cm/s TR Peak Gradient 26.7 mmHg FINDINGS Left Ventricle Left ventricular ejection fraction is estimated at 15-20 %. Moderately increased left ventricular diastolic diameter. Mildly increased left ventricular diastolic volume. Severely increased left ventricular systolic volume. Severely decreased left ventricular ejection fraction. Severely reduced global left ventricular systolic function. Right Ventricle Mild right ventricular dilatation. Hyperdynamic right ventricular global systolic function. Right ventricular systolic pressure within normal limits. Right Atrium Moderate right atrial dilatation. Left Atrium Moderate left atrial dilatation. Mitral Valve Mitral valve thickened. Moderate to Severe mitral regurgitation. Mitral annular calcification. No mitral stenosis. Aortic Valve Trileaflet aortic valve. Diffuse thickening (sclerosis) of the aortic valve cusps without reduced excursion. No aortic stenosis. [id number]-di-hhewczgi aortic regurgitation. Tricuspid Valve Structurally normal tricuspid valve. Severe tricuspid regurgitation. No tricuspid stenosis. Pulmonic Valve Structurally normal pulmonic valve. No pulmonic stenosis. Trace pulmonic regurgitation. Pericardium Left pleural effusion. No pericardial effusion. Aorta Normal size aortic root and proximal ascending aorta. CONCLUSIONS LVEF 15-20% Dilated LV cavity. Severely reduced LV systolic function. Mild RV dilatation with reduced systolic function. RVSP estimated at 32 mmHg Moderate biatrial dilatation Moderate to severe mitral regurgitation likely functional [id number] aortic regurgitation. Moderate Triscuspid regurgitation Previewed by: Dr Farhat Montgomery (Electronically Signed) Final Date: 28 August 2024 11:52
[2024-08-28 12:00] LABS: Glucose,Whole Blood 69 mg/dL (70-110)
[2024-08-28] MEDS ORDERED: DEXTROSE 50% SYRINGE 50 ML IVP PRN ×2 (12:29)
--- NOTE | 2024-08-28 12:50 | P.PN ---
Subjective HISTORY OF PRESENT ILLNESS: Patient is a 59-year-old female known to Dr. Saunders. She has a prior history of coronary artery disease with ischemic cardiomyopathy. She also has a history of type 2 diabetes, end-stage renal disease, hypothyroidism, history of tobacco use and COPD. January 2024 she had hospitalization for NSTEMI. In February 2020 she underwent CABG x 4, RUSSO to LAD, and diagonal, SVG to PDA and second OM with closure of left atrial appendage. Her last hospitalization was in June 2024 when she was treated for CHF exacerbation. During that time she also had COVID-19 infection. This time she presented to the hospital because of increased worsening shortness of breath, difficulty breathing along. On admission her NT-proBNP was 33,000, initial troponin negative, creatinine of 3.27, previously Reported creatinine was 1.6. She is hemodialysis dependent through a subclavian port. She is getting evaluated for possible home-based peritoneal dialysis versus hemodialysis. Chest x-ray shows signs of pulmonary congestion. In February and June she had a surface echocardiogram which showed cardiomyopathy with a EF of 20% with severe mitral regurgitation. However she had a [place] with Dr. Berman in February which only reported mild secondary MR. 08/27/2024 Patient examined this morning at the bedside. Patient states that she underwent hemodialysis yesterday. She states that she is feeling better today. She denies any chest pain or pressure. Denies any shortness of breath. She does report itching of her extremities. 2D echo remains pending. 08/28/2024 Patient examined this morning at the bedside. Patient currently denies chest pain or pressure. Patient denies shortness of breath. She is undergoing hemodialysis. EF 15 to 20%, moderate to severe MR, mild to moderate AR, severe TR PHYSICAL EXAM: VITAL SIGNS: Reviewed. GENERAL: Well-developed in no acute distress. NECK: Supple. No JVD or thyromegaly LUNGS: Respirations even and unlabored. Lungs essentially clear to auscultation bilaterally. HEART: Regular rate and rhythm. S1 and S2 heard. Systolic murmur noted. EXTREMITIES: Normal range of motion. No clubbing or cyanosis. Peripheral pulses intact. Trace bilateral lower extremity edema ASSESSMENT: Shortness of breath Acute on chronic heart failure with reduced EF, 20% Acute hypoxic respiratory failure Coronary artery disease with previous four-vessel CABG, 2019 Valvular heart disease with moderate to severe MR, mild to moderate AI Hypertension Diabetes End-stage renal disease on hemodialysis Ischemic cardiomyopathy History of CVA PLAN: Continue current cardiac medications Nephrology following. Patient currently on oral diuretics Recommend outpatient evaluation for ICD implantation Patient is currently stable for discharge from a cardiac perspective Further recommendations pending patient course Nurse practitioner note has been reviewed by physician. Signing provider agrees with the documented findings, assessment, and plan of care documented by [facility] as a scribe. Objective - Vital Signs Vital signs: Vital Signs Temp 97.4 F L 08/28/24 09:59 Pulse 82 08/28/24 09:59 Resp 18 08/28/24 09:59 BP 110/61 08/28/24 09:59 Pulse Ox 94 L 08/28/24 07:24 FiO2 Intake & Output 08/27/24 08/28/24 08/28/24 18:59 06:59 18:59 Intake Total 7983 015 3656 Output Total 4400 6400 Balance -3360 720 -4980 Weight 64 kg Intake: Oral 013 944 3804 Hemodialysis 400 400 Output: Hemodialysis 2400 3400 Hemodialysis Net Amount 2000 3000 Other: # Voids 2 1 - Labs CBC & Chem 7: 08/28/24 04:06 08/28/24 04:06 Labs: Abnormal Lab Results - Last 24 Hours (Table) 08/27/24 08/27/24 08/28/24 Range/Units 05:20 19:49 04:06 RBC (4.10-5.20) X 10*6/uL Hgb (12.0-15.0) g/dL Hct (37.2-46.3) % MCV (80.0-97.0) FL MCH (27.0-32.0) pg MCHC (32.0-37.0) g/dL RDW (11.5-14.5) % Lymphocytes # 0.80 L (0.90-5.00) X 10*3/uL Polychromasia 2+ A Anisocytosis (manual) 2+ A Macrocytosis (manual) 2+ A Elliptocytes 2+ A Sodium 132 L (135-145) mmol/L Creatinine 2.5 H (0.6-1.5) mg/dL Est GFR (CKD-EPI) 21 L (>=60) BUN/Creatinine Ratio 9.32 L (12.00-20.00) Ratio Glucose 360 H (70-110) mg/dL POC Glucose (mg/dL) 151 H (70-110) mg/dL Calcium 8.2 L (8.7-10.3) mg/dL Alkaline Phosphatase 254 H (41-126) U/L Total Protein 5.6 L (6.2-8.2) g/dL Albumin 2.9 L (3.8-4.9) g/dL Albumin/Globulin Ratio 1.07 L (1.60-3.17) Ratio 08/28/24 08/28/24 08/28/24 Range/Units 04:06 05:59 09:38 RBC 3.28 L (4.10-5.20) X 10*6/uL Hgb 10.6 L (12.0-15.0) g/dL Hct 34.9 L (37.2-46.3) % MCV 106.4 H (80.0-97.0) FL MCH 32.3 H (27.0-32.0) pg MCHC 30.4 L (32.0-37.0) g/dL RDW 19.5 H (11.5-14.5) % Lymphocytes # (0.90-5.00) X 10*3/uL Polychromasia Anisocytosis (manual) Macrocytosis (manual) Elliptocytes Sodium (135-145) mmol/L Creatinine (0.6-1.5) mg/dL Est GFR (CKD-EPI) (>=60) BUN/Creatinine Ratio (12.00-20.00) Ratio Glucose (70-110) mg/dL POC Glucose (mg/dL) 364 H 49 L* (70-110) mg/dL Calcium (8.7-10.3) mg/dL Alkaline Phosphatase (41-126) U/L Total Protein (6.2-8.2) g/dL Albumin (3.8-4.9) g/dL Albumin/Globulin Ratio (1.60-3.17) Ratio 08/28/24 08/28/24 Range/Units 09:57 11:58 RBC (4.10-5.20) X 10*6/uL Hgb (12.0-15.0) g/dL Hct (37.2-46.3) % MCV (80.0-97.0) FL MCH (27.0-32.0) pg MCHC (32.0-37.0) g/dL RDW (11.5-14.5) % Lymphocytes # (0.90-5.00) X 10*3/uL Polychromasia Anisocytosis (manual) Macrocytosis (manual) Elliptocytes Sodium (135-145) mmol/L Creatinine (0.6-1.5) mg/dL Est GFR (CKD-EPI) (>=60) BUN/Creatinine Ratio (12.00-20.00) Ratio Glucose (70-110) mg/dL POC Glucose (mg/dL) 57 L 69 L (70-110) mg/dL Calcium (8.7-10.3) mg/dL Alkaline Phosphatase (41-126) U/L Total Protein (6.2-8.2) g/dL Albumin (3.8-4.9) g/dL Albumin/Globulin Ratio (1.60-3.17) Ratio
[2024-08-28 13:00] LABS: Glucose,Whole Blood 116 mg/dL (70-110)
[2024-08-28 17:08] LABS: Glucose,Whole Blood 267 mg/dL (70-110)
--- NOTE | 2024-08-28 17:24 | P.PN ---
Subjective Progress Note Date: 08/28/24 Hospital course: Patient is a 59-year-old female with a past medical history of CAD status post CABG x 4 on 02/26/24, ischemic cardiomyopathy with previous EF reported to be 15 to 20%, hypertension, hyperlipidemia, insulin-dependent diabetes mellitus, hypothyroidism, ESRD recently started on hemodialysis in March 2024 and COPD. She presented to the emergency department on 08/26/2024 with a chief complaint of shortness of breath and exertional dyspnea. Upon arrival to our facility, patient underwent evaluation in the emergency department. Vital signs upon a rrival show blood pressure 122/73, heart rate 85, respiratory rate 20, temp 97.4 F, and SpO2 100% on 2 L. EKG completed showing sinus mechanism at 88 bpm with a left bundle branch block. Chest x-ray showing persistent mild cardiomegaly with bilateral pleural effusions left greater than right and mild central vascular congestion consistent with CHF. Labs were completed and reviewed. CBC showing hemoglobin 11.0 and MCV 104.3. Coagulation profile normal findings. BMP showing hyponatremia with sodium of 131, hypocarbia with bicarb of 28, and elevated renal function consistent with ESRD with BUN of 54, creatinine of 3.27, GFR of 15. Blood glucose 116. Liver profile showing transaminitis with AST of 133, ALT of 57, and alkaline phosphatase of 338. Troponin 0.013 and proBNP was 32,900. Patient was admitted under our services for acute on chronic systolic heart failure exacerbation with consultation to cardiology for CHF exacerbation and nephrology for needed dialysis. Troponins trended overnight resulting at 0.013, 0.016, and 0.014. Hemoglobin A1c resulting at 9.0%. Lipid profile unremarkable. Vitamin B12 was elevated at 950. Physical exam: Vital signs reviewed and stable. General: Nontoxic, no distress and appears stated age. Derm: Skin warm and dry, normal coloration for ethnicity. Head: Atraumatic, normocephalic and symmetric. Eyes: EOM's intact, no lid lag, and anicteric sclera Mouth: no lip lesions, mucus membranes moist Cardiovascular: regular rate and rhythm with normal S1S2, systolic murmur, positive posterior tibial pulses bilaterally, and cap refill < 2 seconds. Permacath right anterior chest. Lungs: Respirations even, regular, and unlabored on room air. Lungs diminished, no rhonchi, no rales, no wheezing, and no accessory muscle usage. Abdominal: soft, nontender to palpation, no guarding, no appreciable organomegaly Ext: ROM intact. No gross muscle atrophy, 1+ pitting bilateral lower extremity edema, no contractures Neuro: Speech clear, face symmetrical and CN II-XII grossly intact with no noted focal neuro deficits Psych: Alert and oriented to person, place, time, and situation. Appropriate and pleasant affect. 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 Plans for likely discharge tomorrow morning if blood glucose levels improved.. -Telemetry monitoring -Troponins trended overnight resulting at 0.013, 0.016, and 0.014. Hemoglobin A1c resulting at 9.0%. Lipid profile unremarkable. -ProBNP 32,900 -Daily weights and Close monitoring of I's and O's -Continue cardiac medication regimen with aspirin 81 mg daily, Plavix 75 mg daily, metoprolol 25 mg daily, atorvastatin 40 mg daily Entresto 24-26 mg tablets twice daily, and torsemide 40 mg daily. -Echocardiogram completed revealing an EF of 15 to 20% with dilated left ventricular cavity, mild RV dilation with reduced systolic function and RVSP estimated at 32 mmHg, moderate biatrial dilation, moderate to severe mitral regurgitation, mild to moderate aortic regurgitation, and trace tricuspid regurgitation. Insulin-dependent diabetes mellitus with episodes of hypoglycemia -Patient with recurrent episodes of hypoglycemia this morning with blood glucose of 49, 57, and later 69. This is believed to be secondary to poor oral intake. -Hemoglobin A1c at 9.0%. -Continue glycemic protocol with NovoLog sliding scale and scheduled Levemir 12 units daily. ESRD on hemodialysis -Nephrology following and managing dialysis. Patient undergoing hemodialysis this morning. Hypertension -Continue daily medication regimen with metoprolol succinate 25 mg daily. Hyperlipidemia -Lipid profile unremarkable. -Continue atorvastatin 40 mg daily. Hypothyroidism -Continue daily medication regimen with levothyroxine 176 mcg daily. Data and imaging reviewed: -Labs reviewed. Morning labs reviewed. CBC showing stable macrocytic anemia with hemoglobin of 10.6 and MCV of 106.4. BMP showing hyponatremia with sodium of 132. Renal function consistent with known ESRD with BUN of 23.3, creatinine of 2.5, and GFR of 21. Magnesium 1.8. Liver profile showing improvement of transaminitis with AST of 25, ALT of 29, and elevated alkaline phosphatase of 254. Patient with recurrent episodes of hypoglycemia this morning with blood glu cose of 49, 57, and later 69. This is believed to be secondary to poor oral intake. -Vital signs reviewed. Blood pressure 110/61, heart rate 82, respiratory rate 18, temp 97.4 F, and SpO2 of 93% on 2 L. CODE STATUS: Full code DVT prophylaxis: Heparin Anticipated discharge date: Likely tomorrow morning if blood glucose levels improve. Anticipated discharge place: Home Patient was seen independently by Nurse Pracitioner. This document was prepared using [employer] dictation software. Please allow for errors in wood tile installation helper, while rare they do occur. Yahir Haro NP rendered care for this patient independently, reviewed the findings and plan as documented in the note above and agree with plan. I did not physically speak with or examine the patient on this date. Objective - Vital Signs Vital signs: Vital Signs Temp 97.8 F 08/28/24 07:24 Pulse 84 08/28/24 08:06 Resp 14 08/28/24 07:24 BP 123/73 08/28/24 07:24 Pulse Ox 94 L 08/28/24 07:24 FiO2 Intake & Output 08/27/24 08/28/24 08/28/24 18:59 06:59 18:59 Intake Total 9687 951 1375 Output Total 4400 Balance -3360 720 1020 Weight 64 kg Intake: Oral 158 208 8063 Hemodialysis 400 Output: Hemodialysis 2400 Hemodialysis Net Amount 2000 Other: # Voids 2 1 - Labs CBC & Chem 7: 08/28/24 04:06 08/28/24 04:06 Labs: Abnormal Lab Results - Last 24 Hours (Table) 08/27/24 08/27/24 08/27/24 Range/Units 05:20 05:20 12:12 RBC 2.99 L (4.10-5.20) X 10*6/uL Hgb 9.7 L (12.0-15.0) g/dL Hct 31.7 L (37.2-46.3) % MCV 106.0 H (80.0-97.0) FL MCH 32.4 H (27.0-32.0) pg MCHC 30.6 L (32.0-37.0) g/dL RDW 19.4 H (11.5-14.5) % Lymphocytes # 0.80 L (0.90-5.00) X 10*3/uL Polychromasia 2+ A Anisocytosis (manual) 2+ A Macrocytosis (manual) 2+ A Elliptocytes 2+ A Sodium 133 L (135-145) mmol/L Anion Gap 15.30 H (4.00-12.00) mmol/L BUN 28.1 H (9.0-27.0) mg/dL Creatinine 2.2 H (0.6-1.5) mg/dL Est GFR (CKD-EPI) 25 L (>=60) Glucose 363 H (70-110) mg/dL POC Glucose (mg/dL) 147 H (70-110) mg/dL Calcium 8.2 L (8.7-10.3) mg/dL Phosphorus 6.2 H (2.4-5.1) mg/dL AST 36 H (13-35) U/L Alkaline Phosphatase 299 H (41-126) U/L Total Protein 5.8 L (6.2-8.2) g/dL Albumin 3.1 L (3.8-4.9) g/dL Albumin/Globulin Ratio 1.15 L (1.60-3.17) Ratio 08/27/24 08/28/24 Range/Units 19:49 05:59 RBC (4.10-5.20) X 10*6/uL Hgb (12.0-15.0) g/dL Hct (37.2-46.3) % MCV (80.0-97.0) FL MCH (27.0-32.0) pg MCHC (32.0-37.0) g/dL RDW (11.5-14.5) % Lymphocytes # (0.90-5.00) X 10*3/uL Polychromasia Anisocytosis (manual) Macrocytosis (manual) Elliptocytes Sodium (135-145) mmol/L Anion Gap (4.00-12.00) mmol/L BUN (9.0-27.0) mg/dL Creatinine (0.6-1.5) mg/dL Est GFR (CKD-EPI) (>=60) Glucose (70-110) mg/dL POC Glucose (mg/dL) 151 H 364 H (70-110) mg/dL Calcium (8.7-10.3) mg/dL Phosphorus (2.4-5.1) mg/dL AST (13-35) U/L Alkaline Phosphatase (41-126) U/L Total Protein (6.2-8.2) g/dL Albumin (3.8-4.9) g/dL Albumin/Globulin Ratio (1.60-3.17) Ratio
[2024-08-28 19:39] LABS: Glucose,Whole Blood 180 mg/dL (70-110)
[2024-08-28 21:26] VITALS: RESP 18
[2024-08-29 06:05] LABS: Glucose,Whole Blood 429 mg/dL (70-110)
[2024-08-29 06:07] LABS: Glucose,Whole Blood 436 mg/dL (70-110)
[2024-08-29] MEDS: diphenhydrAMINE 25 MG CAP PO STA (06:31)
[2024-08-29 09:20] VITALS: BP 123/76; TEMP 97.5
[2024-08-29 10:26] LABS: Glucose,Whole Blood 216 mg/dL (70-110)
--- NOTE | 2024-08-29 10:49 | P.PN ---
Subjective HISTORY OF PRESENT ILLNESS: Patient is a 59-year-old female known to Dr. Saunders. She has a prior history of coronary artery disease with ischemic cardiomyopathy. She also has a history of type 2 diabetes, end-stage renal disease, hypothyroidism, history of tobacco use and COPD. January 2024 she had hospitalization for NSTEMI. In February 2020 she underwent CABG x 4, RUSSO to LAD, and diagonal, SVG to PDA and second OM with closure of left atrial appendage. Her last hospitalization was in June 2024 when she was treated for CHF exacerbation. During that time she also had COVID-19 infection. This time she presented to the hospital because of increased worsening shortness of breath, difficulty breathing along. On admission her NT-proBNP was 33,000, initial troponin negative, creatinine of 3.27, previously Reported creatinine was 1.6. She is hemodialysis dependent through a subclavian port. She is getting evaluated for possible home-based peritoneal dialysis versus hemodialysis. Chest x-ray shows signs of pulmonary congestion. In February and June she had a surface echocardiogram which showed cardiomyopathy with a EF of 20% with severe mitral regurgitation. However she had a [place] with Dr. Berman in February which only reported mild secondary MR. 08/27/2024 Patient examined this morning at the bedside. Patient states that she underwent hemodialysis yesterday. She states that she is feeling better today. She denies any chest pain or pressure. Denies any shortness of breath. She does report itching of her extremities. 2D echo remains pending. 08/28/2024 Patient examined this morning at the bedside. Patient currently denies chest pain or pressure. Patient denies shortness of breath. She is undergoing hemodialysis. EF 15 to 20%, moderate to severe MR, mild to moderate AR, severe TR 08/29/2024 Patient examined this morning the bedside. Patient currently denies chest pain or pressure. She denies shortness of breath. Patient has been having issues yesterday with hypoglycemia. Vital signs are stable. Most recent blood pressure 123/76. PHYSICAL EXAM: VITAL SIGNS: Reviewed. GENERAL: Well-developed in no acute distress. NECK: Supple. No JVD or thyromegaly LUNGS: Respirations even and unlabored. Lungs essentially clear to auscultation bilaterally. HEART: Regular rate and rhythm. S1 and S2 heard. Systolic murmur noted. EXTREMITIES: Normal range of motion. No clubbing or cyanosis. Peripheral pu lses intact. Trace bilateral lower extremity edema ASSESSMENT: Shortness of breath Acute on chronic heart failure with reduced EF, 20% Acute hypoxic respiratory failure Coronary artery disease with previous four-vessel CABG, 2020 Valvular heart disease with moderate to severe MR, mild to moderate AI Hypertension Diabetes End-stage renal disease on hemodialysis Ischemic cardiomyopathy History of CVA PLAN: Continue current cardiac medications Nephrology following. Patient currently on oral diuretics. Continue hemodialysis per nephrology. Recommend outpatient evaluation for ICD implantation Patient is currently stable for discharge from a cardiac perspective Further recommendations pending patient course Nurse practitioner note has been reviewed by physician. Signing provider agrees with the documented findings, assessment, and plan of care documented by RECEIVER as a scribe. Objective - Vital Signs Vital signs: Vital Signs Temp 97.5 F L 08/29/24 07:00 Pulse 83 08/29/24 09:43 Resp 18 08/29/24 09:43 BP 123/76 08/29/24 07:00 Pulse Ox 95 08/29/24 01:53 FiO2 Intake & Output 08/28/24 08/29/24 08/29/24 18:59 06:59 18:59 Intake Total 1420 480 Output Total 6400 Balance -4980 480 Intake: Oral 1020 480 Hemodialysis 400 Output: Hemodialysis 3400 Hemodialysis Net Amount 3000 Other: # Voids 3 1 - Labs CBC & Chem 7: 08/28/24 04:06 08/28/24 04:06 Labs: Abnormal Lab Results - Last 24 Hours (Table) 08/28/24 08/28/24 08/28/24 Range/Units 11:58 12:59 17:07 POC Glucose (mg/dL) 69 L 116 H 267 H (70-110) mg/dL 08/28/24 08/29/24 08/29/24 Range/Units 19:37 06:03 06:05 POC Glucose (mg/dL) 180 H 429 H 436 H (70-110) mg/dL 08/29/24 Range/Units 10:24 POC Glucose (mg/dL) 216 H (70-110) mg/dL
[2024-08-29] MEDS: INSULIN DETEMIR (LEVEMIR) 100 UNIT/ML SYR SQ SCH (11:13)
--- NOTE | 2024-08-29 11:37 | P.DS ---
Providers Date of admission: 08/26/24 06:14 Expected date of discharge: 08/29/24 Attending physician: John Varela MD Consults: 08/26/24 06:13 Consult Physician Routine Consulting Provider: Marcelino Davies Consult Reason/Comments: ckd Do you want consulting provider notified?: Yes Consult Physician Routine Consulting Provider: Yokasta Lane Consult Reason/Comments: chf Do you want consulting provider notified?: Yes Primary care physician: Papi Saavedra Hospital Course: Discharge Diagnosis: Acute on chronic systolic heart failure exacerbation. Patient underwent successful IV diuresis. She was evaluated by cardiology and nephrology and cleared from their perspective for discharge. Patient medically optimized at this time she has had no further episodes of hypoglycemia. Blood glucose currently 216. Patient denies having any complaints and states that she is ready to go home. Patient to follow-up outpatient with PCP in 1 to 2 days, pyridine operator in 1 week, and spud sorter as scheduled. Patient to continue dialysis Wednesdays and Fridays as previously scheduled. Continue cardiac medication regimen with aspirin 81 mg daily, Plavix 75 mg daily, metoprolol 25 mg daily, atorvastatin 40 mg daily Entresto 24-26 mg tablets twice daily, and torsemide 40 mg daily. CAD status post CABG x 4 Ischemic cardiomyopathy. Echocardiogram completed revealing an EF of 15 to 20% with dilated left ventricular cavity, mild RV dilation with reduced systolic fu nction and RVSP estimated at 32 mmHg, moderate biatrial dilation, moderate to severe mitral regurgitation, mild to moderate aortic regurgitation, and trace tricuspid regurgitation. Insulin-dependent diabetes mellitus with episodes of hypoglycemia. Patient to continue home medication regimen. ESRD on hemodialysis Nephrology evaluated and managed dialysis. Patient last underwent dialysis on 08/28/2024 and is next due tomorrow on 08/30/2024.. Patient to continue to follow-up outpatient with nephrology as scheduled and continue previously scheduled dialysis treatments Monday/Monday/Fridays. Hypertension Continue daily medication regimen with metoprolol succinate 25 mg daily. Hyperlipidemia Lipid profile unremarkable. Continue atorvastatin 40 mg daily. Hypothyroidism-Continue daily medication regimen with levothyroxine 176 mcg daily. Hospital course: Patient is a 59-year-old female with a past medical history of CAD status post CABG x 4 on 02/26/24, ischemic cardiomyopathy with EF 15 to 20%, hypertension, hyperlipidemia, insulin-dependent diabetes mellitus, hypothyroidism, ESRD recently started on hemodialysis in March 2024 and COPD. She presented to the emergency department on 08/26/2024 with a chief complaint of shortness of breath and exertional dyspnea. Upon arrival to our facility, patient underwent evaluation in the emergency department. Vital signs upon arrival show blood pressure 122/73, heart rate 85, respiratory rate 20, temp 97.4 F, and SpO2 100% on 2 L. EKG completed showing sinus mechanism at 88 bpm with a left bundle branch block. Chest x-ray showing persistent mild cardiomegaly with bilateral pleural effusions left greater than right and mild central vascular congestion consistent with CHF. Labs were completed and reviewed. CBC showing hemoglobin 11.0 and MCV 104.3. Coagulation profile normal findings. BMP showing hyponatremia with sodium of 131, hypocarbia with bicarb of 28, and elevated renal function consistent with ESRD with BUN of 54, creatinine of 3.27, GFR of 15. Blood glucose 116. Liver profile showing transaminitis with AST of 133, ALT of 57, and alkaline phosphatase of 338. Troponin 0.013 and proBNP was 32,900. Patient was admitted under our services for acute on chronic systolic heart failure exacerbation with consultation to cardiology for CHF exacerbation and nephrology for needed dialysis. Troponins trended overnight resulting at 0.013, 0.016, and 0.014. Hemoglobin A1c resulting at 9.0%. Lipid profile unremarkable. Vitamin B12 was elevated at 950. Echocardiogram completed revealing an EF of 15 to 20% with dilated left ventricular cavity, mild RV dilation with reduced systolic function and RVSP estimated at 32 mmHg, moderate biatrial dilation, moderate to severe mitral regurgitation, mild to moderate aortic regurgitation, and trace tricuspid regurgitation. Patient underwent successful IV diuresis. She was evaluated by cardiology and nephrology and cleared from their perspective for discharge. Patient medically optimized at this time she has had no further episodes of hypoglycemia. Blood glucose currently 216. Patient denies having any complaints and states that she is ready to go home. Patient to follow-up outpatient with PCP in 1 to 2 days, pyridine operator in 1 week, and spud sorter as scheduled. Patient to continue dialysis Wednesdays and Fridays as previously scheduled. Continue cardiac medication regimen with aspirin 81 mg daily, Plavix 75 mg daily, metoprolol 25 mg daily, atorvastatin 40 mg daily Entresto 24-26 mg tablets twice daily, and torsemide 40 mg daily. Physical exam: Vital signs reviewed and stable. General: Nontoxic, no distress and appears stated age. Derm: Skin warm and dry, normal coloration for ethnicity. Head: Atraumatic, normocephalic and symmetric. Eyes: EOM's intact, no lid lag, and anicteric sclera Mouth: no lip lesions, mucus membranes moist Cardiovascular: regular rate and rhythm with normal S1S2, systolic murmur, positive posterior tibial pulses bilaterally, and cap refill < 2 seconds. Permacath right anterior chest. Lungs: Respirations even, regular, and unlabored on room air. Lungs diminished, no rhonchi, no rales, no wheezing, and no accessory muscle usage. Abdominal: soft, nontender to palpation, no guarding, no appreciable organomegaly Ext: ROM intact. No gross muscle atrophy, 1+ pitting bilateral lower extremity edema, no contractures Neuro: Speech clear, face symmetrical and CN II-XII grossly intact with no noted focal neuro deficits Psych: Alert and oriented to person, place, time, and situation. Appropriate and pleasant affect. A total of 35 minutes of time were spent preparing this complex discharge summary. Pt was discharged on 08/29/2024 at 11:33 AM. Patient was seen independently by Nurse Practitioner. This document was prepared using [employer] dictation software. Please allow for errors in anvil worker while rare they do occur. Yahir Haro NP rendered care for this patient independently, reviewed the findings and plan as documented in the note above. I did not physically speak with or examine the patient on this date. Patient Condition at Discharge: Stable Plan - Discharge Summary Discharge Rx Participant: No New Discharge Prescriptions: New Sacubitril/Valsartan [Entresto 24 mg-26 mg Tablet] 1 each PO BID 30 Days #60 tab Continue Ondansetron [Zofran] 4 mg PO Q8H PRN PRN Reason: Nausea And Vomiting traZODone HCL [Desyrel] 50 mg PO HS Aspirin EC [Ecotrin Low Dose] 81 mg PO DAILY Atorvastatin [Lipitor] 40 mg PO HS Acetaminophen Tab [Tylenol] 650 mg PO Q6H PRN PRN Reason: Fever And/ Or Pain Torsemide [Demadex] 40 mg PO DAILY #30 tab Metoprolol Succinate (ER) [Toprol XL] 25 mg PO DAILY #30 tab Levothyroxine Sodium [Synthroid] 175 mcg PO DAILY Ipratropium-Albuterol Nebulize [Duoneb 0.5 mg-3 mg/3 ml Soln] 3 ml INHALATION RT-Q2H PRN each PRN Reason: Shortness Of Breath Or Wheezing Clopidogrel [Plavix] 75 mg PO DAILY tab Pantoprazole [Protonix] 40 mg PO AC-BRKFST tab Polyvinyl Alcohol/Povidone [Clear Eyes Natural Tears Drop] 1 drop BOTH EYES QID PRN PRN Reason: Dry Eye(S) Ipratropium Saxis [Atrovent Hfa] 2 puff INHALATION RT-Q6H PRN PRN Reason: Shortness Of Breath Fluticasone/Umeclidin/Vilanter [Trelegy Ellipta 100-62.5-25] 1 puff INHALATION RT-DAILY Insulin Glargine,Hum.rec.anlog [Lantus Solostar Pen] 10 - 12 units SQ DAILY Insulin Aspart [NovoLOG Flexpen] See Protocol SQ AC-TID Discharge Medication List Levothyroxine Sodium [Synthroid] 175 mcg PO DAILY 02/02/22 [History] Ondansetron [Zofran] 4 mg PO Q8H PRN 02/06/24 [History] traZODone HCL [Desyrel] 50 mg PO HS 02/09/24 [History] Clopidogrel [Plavix] 75 mg PO DAILY tab 03/18/24 [Rx] Ipratropium-Albuterol Nebulize [Duoneb 0.5 mg-3 mg/3 ml Soln] 3 ml INHALATION RT-Q2H PRN each 03/18/24 [Rx] Pantoprazole [Protonix] 40 mg PO AC-BRKFST tab 03/18/24 [Rx] Acetaminophen Tab [Tylenol] 650 mg PO Q6H PRN 06/30/24 [History] Aspirin EC [Ecotrin Low Dose] 81 mg PO DAILY 06/30/24 [History] Atorvastatin [Lipitor] 40 mg PO HS 06/30/24 [History] Fluticasone/Umeclidin/Vilanter [Trelegy Ellipta 100-62.5-25] 1 puff INHALATION RT-DAILY 06/30/24 [History] Ipratropium Saxis [Atrovent Hfa] 2 puff INHALATION RT-Q6H PRN 06/30/24 [History] Polyvinyl Alcohol/Povidone [Clear Eyes Natural Tears Drop] 1 drop BOTH EYES QID PRN 06/30/24 [History] Metoprolol Succinate (ER) [Toprol XL] 25 mg PO DAILY #30 tab 07/05/24 [Rx] Torsemide [Demadex] 40 mg PO DAILY #30 tab 07/05/24 [Rx] Insulin Aspart [NovoLOG Flexpen] See Protocol SQ AC-TID 08/26/24 [History] Insulin Glargine,Hum.rec.anlog [Lantus Solostar Pen] 10 - 12 units SQ DAILY 08/26/24 [History] Sacubitril/Valsartan [Entresto 24 mg-26 mg Tablet] 1 each PO BID 30 Days #60 tab 08/29/24 [Rx] Follow up Appointment(s)/Referral(s): Jt Saunders MD [STAFF PHYSICIAN] - 09/09/24 10:30 am (Appointment made at the main office with Joseline ) Papi Saavedra DO [Primary Care Provider] - 1-2 days Marcelino Davies DO [STAFF PHYSICIAN] - 09/24/24 3:20 pm Patient Instructions/Handouts: Heart Failure (DC), Dialysis Diet (DC) Activity/Diet/Wound Care/Special Instructions: Activity: As tolerated. Take breaks as needed. Diet: Heart healthy and carb consistent diet. Avoid salts, or foods with hidden salts such as canned or boxed foods and frozen dinners. Extra salt makes your heart work harder and traps the fluid in your body for longer. Special Instructions: Weigh yourself every morning after you urinate. If you gain 3 pounds overnight or more than 5 pounds in one week, call your spud sorter and pyridine operator for guidance on your medications or they may want to see you in their office. Keep a daily log of your weights and be sure to bring with you at follow up visits with your spud sorter and pyridine operator. Take all of your medications as directed, especially your water pills. NEVER skip a dose. And remember to keep all of your doctor's appointments and follow- up as needed. Elevate your legs when you are not up moving around to help with circulation and prevent swelling. Compression stockings are also a great way to improve lower extremity circulation and prevent/improve lower extremity edema. Call your spud sorter and pyridine operator if you notice any extra swelling in your legs, ankles, feet or abdomen, if you have a new dry cough, if your shortness of breath worsens with activity or at rest, or if you feel more fatigued. Thank you for allowing us to participate in your care, it was truly a pleasure having you for our patient!!! Discharge Disposition: HOME WITH HOME HEALTH SERVICES
--- NOTE | 2024-08-29 12:18 | P.PN ---
Subjective Patient is seen in follow-up for end-stage renal disease. She is maintained on hemodialysis on Monday schedule. No problems with dialysis yesterday. Denies chest pain or shortness of breath. No active complaints. Vital signs are stable. General: No acute distress. HEENT: Head exam is unremarkable. On nasal cannula. LUNGS: No audible rhonchi or wheezes. HEART: Rate and Rhythm are regular. ABDOMEN: Nontender. EXTREMITITES: 1+ edema. Objective - Vital Signs Vital signs: Vital Signs Temp 97.5 F L 08/29/24 07:00 Pulse 83 08/29/24 09:43 Resp 18 08/29/24 09:43 BP 123/76 08/29/24 07:00 Pulse Ox 95 08/29/24 01:53 FiO2 Intake & Output 08/28/24 08/29/24 08/29/24 18:59 06:59 18:59 Intake Total 1420 480 Output Total 6400 Balance -4980 480 Intake: Oral 1020 480 Hemodialysis 400 Output: Hemodialysis 3400 Hemodialysis Net Amount 3000 Other: # Voids 3 1 - Labs CBC & Chem 7: 08/28/24 04:06 08/28/24 04:06 Labs: Abnormal Lab Results - Last 24 Hours (Table) 08/28/24 08/28/24 08/28/24 Range/Units 12:59 17:07 19:37 POC Glucose (mg/dL) 116 H 267 H 180 H (70-110) mg/dL 08/29/24 08/29/24 08/29/24 Range/Units 06:03 06:05 10:24 POC Glucose (mg/dL) 429 H 436 H 216 H (70-110) mg/dL Assessment and Plan Plan: Assessment: 1. End-stage renal disease maintained on hemodialysis on Monday schedule. 2. Volume overload. Improved with UF. 3. Acute on chronic systolic CHF ejection fraction of 20 to 25% with moderate to severe mitral regurgitation. 4. Coronary artery disease status post CABG. 5. Diabetes mellitus. 6. Hypervolemic hyponatremia. Improved. Plan: Hemodialysis tomorrow. Low-salt diet and 1500 cc fluid restriction. Advised patient to maintain this diet regimen upon discharge. Maintain torsemide. Will also try to add an extra day of hemodialysis due to recurrent hospitalizations.
[2024-08-29 12:52] VITALS: PULSE 82
== END 2024-08-29 14:11 | disposition home health service (06) | DRG 291 ==
LOC: EC 05:00 → 6NMEDSUR 06:13 → OBSVTOIN 06:14 → 6NMEDSUR 14:57
PROVIDERS: ADMIT Internal Medicine; ATTEND Internal Medicine
PROC: 5A1D70Z Performance of Urinary Filtration, Intermittent, Less than 6 Hours Per Day (ICD-10-PCS; principal; 2024-08-26)
DX: I13.2 Hypertensive heart and chronic kidney disease with heart failure and with stage 5 chronic kidney disease, or end stage renal disease (principal); I50.23 Acute on chronic systolic (congestive) heart failure; J96.01 Acute respiratory failure with hypoxia; N18.6 End stage renal disease; E87.1 Hypo-osmolality and hyponatremia; E78.5 Hyperlipidemia, unspecified; E11.22 Type 2 diabetes mellitus with diabetic chronic kidney disease; F41.9 Anxiety disorder, unspecified; I25.10 Atherosclerotic heart disease of native coronary artery without angina pectoris; I25.5 Ischemic cardiomyopathy; M79.7 Fibromyalgia; F32.A Depression, unspecified; I08.3 Combined rheumatic disorders of mitral, aortic and tricuspid valves; E03.9 Hypothyroidism, unspecified; J44.9 Chronic obstructive pulmonary disease, unspecified; D53.9 Nutritional anemia, unspecified; D63.1 Anemia in chronic kidney disease; E11.65 Type 2 diabetes mellitus with hyperglycemia; Z79.890 Hormone replacement therapy; Z99.2 Dependence on renal dialysis; Z87.891 Personal history of nicotine dependence; Z79.4 Long term (current) use of insulin; Z95.1 Presence of aortocoronary bypass graft; Z88.2 Allergy status to sulfonamides; I25.2 Old myocardial infarction; Z86.73 Personal history of transient ischemic attack (TIA), and cerebral infarction without residual deficits; Z90.710 Acquired absence of both cervix and uterus
CPT/HCPCS: 36415; 71045; 80053; 80061; 82607; 83036; 83735; 83880; 84100; 84484; 85025; 85027; 85610; 85730; 90935; 93005; 93306; 94640; 96372; 96374; 96375; 96376; 99285

== ENCOUNTER 2024-09-13 19:35 | Inpatient (IN) | payer MEDICARE, OTHER ==
[2024-09-13] MEDS: ONDANSETRON 4 MG/2 ML VIAL IVP STA (20:25)
[2024-09-13] MEDS: MORPHINE SULFATE 2 MG/ML SYRINGE IVP STA (20:26)
[2024-09-13 20:45] LABS: Basophils # (A) 0.1 k/uL (0-0.2); Basophils % (A) 1 %; Eosinophils # (A) 0.2 k/uL (0-0.7); Eosinophils % (A) 2 %; HGB 12.3 gm/dL (11.4-16.0); Hypochromasia Moderate; Lymphocytes # (A) 0.9 k/uL (1.0-4.8); Lymphocytes % (A) 10 %; MCH 32.1 pg (25.0-35.0); MCHC 30.6 g/dL (31.0-37.0); MCV 104.7 fL (80.0-100.0); Macrocytosis Moderate; Mean Platelet Volume 7.5; Monocytes # (A) 0.4 k/uL (0-1.0); Monocytes % (A) 4 %; Neutrophils # (A) 8.1 k/uL (1.3-7.7); Neutrophils % (A) 83 %; Platelet Count 280 k/uL (150-450); RBC 3.82 m/uL (3.80-5.40); WBC 9.8 k/uL (3.8-10.6)
[2024-09-13 20:57] LABS: ALT 23 U/L (4-34); African American GFR (CKD) 40 (>60 ml/min/1.73 sqM); Albumin 3.8 g/dL (3.5-5.0); Amylase 37 U/L (30-110); Anion Gap 9 mmol/L; Blood Urea Nitrogen 19 mg/dL (7-17); Calcium 8.5 mg/dL (8.4-10.2); Carbon Dioxide 27 mmol/L (22-30); Chloride 94 mmol/L (98-107); Glucose 263 mg/dL (74-99); Lipase 21 U/L (23-300); Non-African American GFR(CKD) 35 (>60 ml/min/1.73 sqM); Sodium 130 mmol/L (137-145); Total Bilirubin 0.9 mg/dL (0.2-1.3); Total Protein 7.4 g/dL (6.3-8.2)
[2024-09-13 21:04] LABS: AST 46 U/L (14-36); Alkaline Phosphatase 196 U/L (38-126); Potassium 4.5 mmol/L (3.5-5.1)
--- NOTE | 2024-09-13 21:15 | ED ---
Abdominal Pain HPI - General Chief Complaint: Abdominal Pain Stated Complaint: Bladder Pressure Time Seen by Provider: 09/13/24 19:43 Source: patient, EMS Mode of arrival: EMS - History of Present Illness Initial Comments: 59-year-old female presenting with chief complaint of abdominal pain. History of CAD, heart failure, CKD on dialysis, PVD, diabetes, hypertension, hyperlipidemia. She received dialysis earlier today. When she got home she started having intense suprapubic pressure. Feels like she has to urinate but she cannot. States that she already produces very little urine. No dysuria when she urinated earlier today. States that she did see some blood when she w iped today and yesterday. Feels nauseous, no vomiting. No fever. - Related Data Home Medications Medication Instructions Recorded Confirmed Levothyroxine Sodium [Synthroid] 175 mcg PO DAILY 02/02/22 08/26/24 Ondansetron [Zofran] 4 mg PO Q8H PRN 02/06/24 08/26/24 traZODone HCL [Desyrel] 50 mg PO HS 02/09/24 08/26/24 Acetaminophen Tab [Tylenol] 650 mg PO Q6H PRN 06/30/24 08/26/24 Aspirin EC [Ecotrin Low Dose] 81 mg PO DAILY 06/30/24 08/26/24 Atorvastatin [Lipitor] 40 mg PO HS 06/30/24 08/26/24 Fluticasone/Umeclidin/Vilanter 1 puff INHALATION RT-DAILY 06/30/24 08/26/24 [Trelegy Ellipta 100-62.5-25] Ipratropium Timewell [Atrovent Hfa] 2 puff INHALATION RT-Q6H PRN 06/30/24 08/26/24 Polyvinyl Alcohol/Povidone [Clear 1 drop BOTH EYES QID PRN 06/30/24 08/26/24 Eyes Natural Tears Drop] Insulin Aspart [NovoLOG Flexpen] See Protocol SQ AC-TID 08/26/24 08/26/24 Insulin Glargine,Hum.rec.anlog 10 - 12 units SQ DAILY 08/26/24 08/26/24 [Lantus Solostar Pen] Previous Rx's Medication Instructions Recorded Clopidogrel [Plavix] 75 mg PO DAILY tab 03/18/24 Ipratropium-Albuterol Nebulize 3 ml INHALATION RT-Q2H PRN each 03/18/24 [Duoneb 0.5 mg-3 mg/3 ml Soln] Pantoprazole [Protonix] 40 mg PO AC-BRKFST tab 03/18/24 Metoprolol Succinate (ER) [Toprol 25 mg PO DAILY #30 tab 07/05/24 XL] Torsemide [Demadex] 40 mg PO DAILY #30 tab 07/05/24 Sacubitril/Valsartan [Entresto 24 1 each PO BID 30 Days #60 tab 08/29/24 mg-26 mg Tablet] Allergies Allergy/AdvReac Type Severity Reaction Status Date / Time Sulfa (Sulfonamide Allergy Rash/Hives Verified 09/13/24 19:38 Antibiotics) Review of Systems ROS Statement: Those systems with pertinent positive or pertinent negative responses have been documented in the HPI. ROS Other: All systems not noted in ROS Statement are negative. Past Medical History Past Medical History: Coronary Artery Disease (CAD), Chest Pain / Angina, Heart Failure, COPD, CVA/TIA, Diabetes Mellitus, Fibromyalgia, GERD/Reflux, Hyperlipidemia, Hypertension, Liver Disease, Myocardial Infarction (SC), Osteoarthritis (OA), Renal Disease, Thyroid Disorder Additional Past Medical History / Comment(s): NEUROPATHY BILATERAL FEET, DDD NECK AND LOWER BACK, hiatal hernia, states no need for BP med anymore(gets orthostatic hypotension-has "medtronic heart loop monitor"), hx hepatitis as a kid, hx fractrured left wrist, hx stroke 03/03/22-problems with balance since. Last Myocardial Infarction Date:: 02/2024 History of Any Multi-Drug Resistant Organisms: MRSA Date of last positivie culture/infection: 2017 MDRO Source:: stomach Past Surgical History: Adenoidectomy, Back Surgery, Bladder Surgery, Hysterectomy, Orthopedic Surgery, Tonsillectomy, Tubal Ligation Additional Past Surgical History / Comment(s): Debridement right foot, PICC line placed and later removed, bladder suspension, exploratory laparotomy, right great toe amputation, pins right in foot, cataracts removed, left wrist ORIF, loop heart monitor placed 02/2022. Past Anesthesia/Blood Transfusion Reactions: No Reported Reaction, Motion Sickness Additional Past Anesthesia/Blood Transfusion Reaction / Comment(s): . Type of Cardiac Device: Loop Past Psychological History: Anxiety, Depression Smoking Status: Former smoker Past Alcohol Use History: Occasional Past Drug Use History: Marijuana, Methamphetamine - Past Family History Sister(s) Family Medical History: Coronary Artery Disease (CAD) Mother Family Medical History: Pulmonary Embolus Additional Family Medical History / Comment(s): . Father Additional Family Medical History / Comment(s): at 26yrs old--accident at work General Exam Limitations: no limitations General appearance: alert, other (in pain) Head exam: Present: atraumatic, normocephalic, normal inspection Eye exam: Present: normal appearance Neck exam: Present: normal inspection. Absent: meningismus Respiratory exam: Present: normal lung sounds bilaterally. Absent: respiratory distress, wheezes, rales, rhonchi, stridor Cardiovascular Exam: Present: regular rate, normal rhythm, normal heart sounds. Absent: systolic murmur, diastolic murmur, rubs, gallop, clicks GI/Abdominal exam: Present: other (Patient too uncomfortable to tolerate abdominal exam at this time) Extremities exam: Present: normal inspection Neurological exam: Present: alert, oriented X3 Psychiatric exam: Present: normal affect, normal mood Skin exam: Present: warm, dry Course Vital Signs 09/13/24 09/13/24 19:36 23:22 Temperature 97.7 F Pulse Rate 80 85 Respiratory 22 16 Rate Blood Pressure 130/75 114/48 O2 Sat by Pulse 98 95 Oximetry Medical Decision Making - Medical Decision Making Was pt. sent in by a medical professional or institution (, PA, HEALTHCARE CONSULTANT, urgent care, hospital, or snf...) When possible be specific @ -No Did you speak to anyone other than the patient for history (EMS, parent, family, police, friend...)? What history was obtained from this source @ -No Did you review nursing and triage notes (agree or disagree)? Why? @ -I reviewed and agree with nursing and triage notes Were old charts reviewed (outside hosp., previous admission, EMS record, old EKG, old radiological studies, urgent care reports/EKG's, snf records)? Report findings @ -No old charts were reviewed Differential Diagnosis (chest pain, altered mental status, abdominal pain women, abdominal pain men, vaginal bleeding, weakness, fever, dyspnea, syncope, headache, dizziness, GI bleed, back pain, seizure, CVA, palpatations, mental health, musculoskeletal)? @ -[facility] Differential Abdominal Pain Women: Appendicitis, Cholecystitis, diverticulosis, ischemic bowel, pancreatitis, he patitis, UTI, gastroenteritis, AAA, incarcerated hernia, bowel obstruction, constipation, inflammatory bowel, hepatitis, peptic ulcer disease, splenic infarction, perforated viscus, vulvitis, ovarian torsion, PID, kidney stone, placenta abruption... This is not meant to be an all-inclusive list EKG interpreted by me (3pts min.). @ -As above X-rays interpreted by me (1pt min.). @ -None done CT interpreted by me (1pt min.). @ -CT shows emphysematous cystitis with findings concerning for microp erforation and surrounding small foci of pneumoperitoneum. Evaluation for a fistulization is limited on the study with lack of oral or rectal contrast. Nonspecific hepatomegaly. Scattered patchy attenuation in the right lung may relate to an acute infectious/inflammatory process. Bilateral pleural effusions and diffuse anasarca is concerning for third spacing versus volume overload. U/S interpreted by me (1pt. min.). @ -None done What testing was considered but not performed or refused? (CT, X-rays, U/S, labs)? Why? @ -None What meds were considered but not given or refused? Why? @ -None Did you discuss the management of the patient with other professionals (professionals i.e. , PA, HEALTHCARE CONSULTANT, lab, RT, psych nurse, social science analyst, desktop support technician, teacher, correctional probation officer, case assistant)? Give summary @ -Spoke with radiologist Dr. Lazar Who communicated to me the critical findings. I spoke with Dr. Varela who accepts admission Was smoking cessation discussed for >3mins.? @ -No Was critical care preformed (if so, how long)? @ -No Were there social determinants of health that impacted care today? How? (Homelessness, low income, unemployed, alcoholism, drug addiction, transportation, low edu. Level, literacy, decrease access to med. care, fci, rehab)? @ -No Was there de-escalation of care discussed even if they declined (Discuss DNR or withdrawal of care, Hospice)? DNR status @ -No What co-morbidities impacted this encounter? (DM, HTN, Smoking, COPD, CAD, Cancer, CVA, ARF, Chemo, Hep., AIDS, mental health diagnosis, sleep apnea, morbid obesity)? @ -ESRD Was patient admitted / discharged? Hospital course, mention meds given and route, prescriptions, significant lab abnormalities, going to OR and other pertinent info. @ -This is a 59-year-old female presenting with chief complaint of suprapubic pain that started suddenly after hemodialysis today. She is having difficulty urinating, states that she does not urinate much to begin with. No leukocytosis or anemia. Creatinine 1.60 BUN 19. Urine is turbid with large leukocytes and large blood. CT shows emphysematous cystitis with microperforations. Patient has been seen here before back in January 2022 for the same issue. Was treated with antibiotics and followed up outpatient with Dr. Robbins. Patient was placed on Unasyn and will be admitted. Consults are placed to urology and nephrology. Patient is agreeable with this plan. I discussed this case with my attending Dr. Hunter Undiagnosed new problem with uncertain prognosis? @ -No Drug Therapy requiring intensive monitoring for toxicity (Heparin, Nitro, In sulin, Cardizem)? @ -No Were any procedures done? @ -No Diagnosis/symptom? @ -Emphysematous cystitis Acute, or Chronic, or Acute on Chronic? @ -Acute Uncomplicated (without systemic symptoms) or Complicated (systemic symptoms)? @ -Complicated Side effects of treatment? @ -No Exacerbation, Progression, or Severe Exacerbation? @ -No Poses a threat to life or bodily function? How? (Chest pain, USA, SC, pneumonia, PE, COPD, DKA, ARF, appy, cholecystitis, CVA, Diverticulitis, Homicidal, Suicid al, threat to staff... and all critical care pts) @ -Yes - Lab Data Result diagrams: 09/13/24 20:10 09/13/24 20:10 Lab Results 09/13/24 09/13/24 09/13/24 Range/Units 20:10 20:10 20:10 WBC 9.8 (3.8-10.6) k/uL RBC 3.82 (3.80-5.40) m/uL Hgb 12.3 (11.4-16.0) gm/dL Hct 40.0 (34.0-46.0) % MCV 104.7 H (80.0-100.0) fL MCH 32.1 (25.0-35.0) pg MCHC 30.6 L (31.0-37.0) g/dL RDW 15.0 (11.5-15.5) % Plt Count 280 (150-450) k/uL MPV 7.5 Neutrophils % 83 % Lymphocytes % 10 % Monocytes % 4 % Eosinophils % 2 % Basophils % 1 % Neutrophils # 8.1 H (1.3-7.7) k/uL Lymphocytes # 0.9 L (1.0-4.8) k/uL Monocytes # 0.4 (0-1.0) k/uL Eosinophils # 0.2 (0-0.7) k/uL Basophils # 0.1 (0-0.2) k/uL Hypochromasia Moderate Macrocytosis Moderate Sodium 130 L (137-145) mmol/L Potassium 4.5 (3.5-5.1) mmol/L Chloride 94 L (98-107) mmol/L Carbon Dioxide 27 (22-30) mmol/L Anion Gap 9 mmol/L BUN 19 H (7-17) mg/dL Creatinine 1.60 H (0.52-1.04) mg/dL Est GFR (CKD-EPI)AfAm 40 (>60 ml/min/1.73 sqM) Est GFR (CKD-EPI)NonAf 35 (>60 ml/min/1.73 sqM) Glucose 263 H (74-99) mg/dL Plasma Lactic Acid Ketan 1.7 (0.7-2.0) mmol/L Calcium 8.5 (8.4-10.2) mg/dL Total Bilirubin 0.9 (0.2-1.3) mg/dL AST 46 H (14-36) U/L ALT 23 (4-34) U/L Alkaline Phosphatase 196 H (38-126) U/L Total Protein 7.4 (6.3-8.2) g/dL Albumin 3.8 (3.5-5.0) g/dL Amylase 37 (30-110) U/L Lipase 21 L (23-300) U/L Urine Color Urine Appearance (Clear) Urine pH (5.0-8.0) Ur Specific [place] (1.001-1.035) Urine Protein (Negative) Urine Glucose (UA) (Negative) Urine Ketones (Negative) Urine Blood (Negative) Urine Nitrite (Negative) Urine Bilirubin (Negative) Urine Urobilinogen (<2.0) mg/dL Ur Leukocyte Esterase (Negative) Urine RBC (0-5) /hpf Urine WBC (0-5) /hpf Urine WBC Clumps (None) /hpf Ur Squamous Epith Cells (0-4) /hpf Urine Bacteria (None) /hpf Urine Mucus (None) /hpf 09/13/24 Range/Units 21:57 WBC (3.8-10.6) k/uL RBC (3.80-5.40) m/uL Hgb (11.4-16.0) gm/dL Hct (34.0-46.0) % MCV (80.0-100.0) fL MCH (25.0-35.0) pg MCHC (31.0-37.0) g/dL RDW (11.5-15.5) % Plt Count (150-450) k/uL MPV Neutrophils % % Lymphocytes % % Monocytes % % Eosinophils % % Basophils % % Neutrophils # (1.3-7.7) k/uL Lymphocytes # (1.0-4.8) k/uL Monocytes # (0-1.0) k/uL Eosinophils # (0-0.7) k/uL Basophils # (0-0.2) k/uL Hypochromasia Macrocytosis Sodium (137-145) mmol/L Potassium (3.5-5.1) mmol/L Chloride (98-107) mmol/L Carbon Dioxide (22-30) mmol/L Anion Gap mmol/L BUN (7-17) mg/dL Creatinine (0.52-1.04) mg/dL Est GFR (CKD-EPI)AfAm (>60 ml/min/1.73 sqM) Est GFR (CKD-EPI)NonAf (>60 ml/min/1.73 sqM) Glucose (74-99) mg/dL Plasma Lactic Acid Ketan (0.7-2.0) mmol/L Calcium (8.4-10.2) mg/dL Total Bilirubin (0.2-1.3) mg/dL AST (14-36) U/L ALT (4-34) U/L Alkaline Phosphatase (38-126) U/L Total Protein (6.3-8.2) g/dL Albumin (3.5-5.0) g/dL Amylase (30-110) U/L Lipase (23-300) U/L Urine Color Yellow Urine Appearance Turbid H (Clear) Urine pH 6.0 (5.0-8.0) Ur Specific [place] 1.020 (1.001-1.035) Urine Protein 3+ H (Negative) Urine Glucose (UA) 3+ H (Negative) Urine Ketones Trace H (Negative) Urine Blood Large H (Negative) Urine Nitrite Negative (Negative) Urine Bilirubin Negative (Negative) Urine Urobilinogen <2.0 (<2.0) mg/dL Ur Leukocyte Esterase Large H (Negative) Urine RBC 87 H (0-5) /hpf Urine WBC >182 H (0-5) /hpf Urine WBC Clumps Many H (None) /hpf Ur Squamous Epith Cells 9 H (0-4) /hpf Urine Bacteria Many H (None) /hpf Urine Mucus Few H (None) /hpf Disposition Clinical Impression: Emphysematous cystitis Disposition: ADMITTED IP TO THIS [facility] Condition: Serious Time of Disposition: 22:47
--- NOTE | 2024-09-13 21:42 | CT ---
EXAMINATION TYPE: CT abdomen pelvis wo con CT DLP: 415.3 mGycm, Automated exposure control for dose reduction was used. DATE OF EXAM: 09/13/2024 9:17 PM COMPARISON: CT abdomen pelvis 02/03/2022 CLINICAL INDICATION:Female, 59 years old with history of abdominal pain; TECHNIQUE: Axial CT abdomen pelvis wo con;Sagittal and coronal reformats were created on a separate workstation. Contrast used: mL of , (none if empty) Oral contrast used: (none if empty) FINDINGS: LOWER CHEST: Small right and trace left pleural effusions with associated atelectasis. There is patch y airspace opacity seen in the partially visualized right lower lobe. The heart is mildly enlarged tr gio pericardial fluid is present. ABDOMEN LIVER: The liver is enlarged measuring up to 19.3 cm in craniocaudal dimension. The liver is otherwis e grossly unremarkable attenuation and morphology. GALLBLADDER AND BILE DUCTS: Unremarkable. PANCREAS: Atrophic and poorly visualized. SPLEEN: The spleen measures at the upper limits of normal. ADRENAL GLANDS: Unremarkable. KIDNEYS AND URETERS: No evidence of hydronephrosis or renal calculus. The ureters are unremarkable. PELVIS BLADDER: There is a large focus of air noted within the urinary bladder. The urinary bladder wall is thickened circumferentially demonstrating wall emphysema. There is fat stranding surrounding the urin lowell bladder. There is no discrete fistula appreciated on this noncontrasted evaluation. There are mul tiple foci of gas seen outside of the urinary bladder in the adjacent tissue. REPRODUCTIVE: Uterus is not visualized. ABDOMEN & PELVIS STOMACH AND BOWEL: Stomach is grossly unremarkable. Small bowel is of normal caliber. No evidence of bowel obstruction. PERITONEUM/RETROPERITONEUM: No evidence of pneumoperitoneum or free fluid. VASCULATURE: No evidence of aortic aneurysm. MUSCULOSKELETAL: Multilevel degenerative changes of the visualized spine. No acute osseous abnormalit ies LYMPH NODES: No gross evidence for lymphadenopathy. SOFT TISSUE/ABDOMINAL WALL: Mild diffuse soft tissue edema. IMPRESSION: 1. Emphysematous cystitis with findings concerning for microperforation and surrounding small foci of pneumoperitoneum. Evaluation for a fistulization is limited on this study with lack of oral or recta l contrast. 2. Nonspecific hepatomegaly. 3. Scattered patchy attenuation and in the right lung may relate to an acute infectious/inflammatory process. 4. Bilateral pleural effusions and diffuse anasarca is concerning for third spacing versus volume ove rload. Critical findings discussed with TOM Mancera by Dr. Lazar over the phone at 9:39 PM on 09/13/20 [facility], , 09/13/2024 9:40 PM
[2024-09-13 22:20] LABS: Appearance,Urine Turbid (Clear); Bacteria,Urine Many /hpf; Bilirubin,Urine Negative (Negative); Blood,Urine Large (Negative); Color,Urine Yellow; Glucose,Urine (UA) 3+ (Negative); Ketones,Urine Trace (Negative); Leukocyte Esterase,Urine Large (Negative); Mucus,Urine Few /hpf; Nitrite,Urine Negative (Negative); Protein,Urine 3+ (Negative); RBC,Urine 87 /hpf (0-5); Squamous Epithelial Cell,Urine 9 /hpf (0-4); Urobilinogen,Urine <2.0 mg/dL (<2.0); WBC,Urine >182 /hpf (0-5)
[2024-09-13] MEDS: MORPHINE SULFATE 4 MG/ML SYRINGE IVP PRN (22:39)
[2024-09-13] MEDS ORDERED: NALOXONE 0.4 MG/ML 1 ML VIAL IV PRN (22:44)
[2024-09-13] MEDS: AMPICILLIN-SULBACTAM 3 GM in SODIUM CHLORIDE 0.9% 100 ML IVPB STA (22:52)
[2024-09-14] MEDS ORDERED: DEXTROSE 50% SYRINGE 50 ML IVP PRN (00:38)
--- NOTE | 2024-09-14 02:50 | P.HPIM ---
History of Present Illness H&P Date: 09/14/24 Chief Complaint: Abdominal pain Patient is a 59-year-old female with past medical history of coronary artery disease with ischemic cardiomyopathy(underwent CABG X 4 in 2019) with left ventricular ejection fraction of 15 to 20%, COPD, ESRD on dialysis MWF via R chest catheter, diabetes mellitus, fibromyalgia, GERD, hyperlipidemia, hypertension, and osteoarthritis presented to the emergency department with abdominal pain. Patient reported that this morning when she was using bathroom she felt pressure in the suprapubic region. Patient reported that she received dialysis earlier today and when she got home she started having intense suprapubic pressure. She also noticed some blood in her urine but states that has been a problem for quite some time. She characterizes the pain as a pressure-like sensation that comes and goes with 9 out of 10 intensity. She stated that she feels like she has to urinate but she cannot and there is also pain and burning when she tries to urinate. She also saw some blood when she wiped today and yesterday. Patient reports chills, nausea, dysuria. Denies chest pain, shortness of breath, fever, and abdominal pain, vomiting, diarrhea, constipation. ED documentation reviewed. In the ED patient was treated with Zofran 4 mg IV x 1, morphine 2 mg IV push x 1, Unasyn 3 g Vitals on admission temperature 97.7, pulse rate 80, respiratory rate 22, blood pressure 130/75, O2 sat of 98% on nasal cannula at 3 L/min Abdomen/pelvis CT shows emphysematous cystitis with findings concerning for microperforation and surrounding small foci of pneumoperitoneum. Evaluation for a fistulization is limited on the study with lack of oral or rectal contrast. Also showed nonspecific hepatomegaly. And scattered patchy attenuation and in the right lung may related to an acute infectious/inflammatory process. Bila teral pleural effusions and diffuse anasarca is concerning for third spacing versus volume overload. Labs on admission show WBC 9.8, hemoglobin 12.3, hematocrit 40, platelet 280, MCV 104.7, sodium 130, potassium 4.5, chloride 94, carbon dioxide 27, BUN 19, creatinine 1.6, glucose 263, lactic acid 1.7, AST 46, ALT 23, alkaline phosphatase 196, lipase 21 UA shows 3+ protein, 3+ glucose, trace ketones, large blood, negative for nitrites, large leukocyte esterase, 87 RBC, WBC of greater than 182 Review of systems: Pertinent positives and negatives as discussed in HPI, a complete review of systems was performed and all other systems are negative. PMH: coronary artery disease with ischemic cardiomyopathy, heart failure with left ventricular ejection fraction of 15 to 20%, COPD, CKD on dialysis, type II diabetes mellitus, fibromyalgia, GERD, hyperlipidemia, hypertension, and osteoarthritis PSH: Adenoidectomy, back surgery, bladder surgery, hysterectomy, orthopedic surgery, tonsillectomy, tubal ligation, loop heart monitor placed in February 2022 FMH: Mother had a history of pulmonary embolus Allergies: Sulfa drugs Social history: Tobacco: Former smoker Alcohol: Occasional alcohol use Recreational drugs: Marijuana and methamphetamine Travel: No recent travel history Sick contacts: No recent sick contacts Physical examination: Vital signs reviewed General: nontoxic, no distress, appears at stated age Derm: warm, dry, intact Head: atraumatic, normocephalic, symmetric Eyes: EOMI, anicteric sclera Mouth: no lip lesion, mucus membranes moist Cardiovascular: S1 S2 reg, no murmur Lungs: CTA bilateral, no rhonchi, no rales, no accessory muscle use Abdominal: soft, suprapubic tenderness, nondistended Extremities: No cyanosis, clubbing, or pedal edema Neuro: Alert, Oriented, Gross neurological examination did not reveal any focal deficits. Intact upper and lower extremity bilateral muscle strength 5 out of 5. Intact sensation in upper and lower extremity bilaterally. Cranial nerves II through XII grossly intact. Psych: well appearing, appropriate affect Assessment/Plan: Patient is a 59-year-old female with past medical history of coronary artery disease, heart failure, COPD, CKD on dialysis, diabetes mellitus, fibromyalgia, GERD, hyperlipidemia, hypertension, and osteoarthritis presented to the emergency department with abdominal pain. Patient is admitted to inpatient medicine service and will be closely monitored. Active: #. Emphysematous cystitis with microperforations Abdomen/pelvis CT showed emphysematous cystitis with findings concerning for microperforation and surrounding small foci of pneumoperitoneum. Consult urology C/w Unasyn q6h IV F/u urine and blood cultures #. Type 2 diabetes Low-dose sliding scale insulin with blood glucose monitoring #. Hyponatremia Morning BMP #. Elevated glucose Low-dose sliding scale insulin with blood glucose monitoring #. Hematuria Urine RBC 87 Large urine blood Large leukocyte esterase, negative for nitrites C/w Unasyn for UTI #. End-stage renal disease on hemodialysis Consult nephrology Monday dialysis schedule Chronic: #. Hyperlipidemia #. GERD Restart home medications once pharmacy has confirmed with patient #. Congestive heart failure with left ventricular ejection fraction of 15 to 20% Monitor for fluid overload F: No restrictions E: Replete as needed N: NPO diet A: Ambulatory DVT prophylaxis: Heparin subq The patient is admitted with an anticipated more than 2 midnight stay for evaluation of abdominal pain CODE STATUS: Full code Discussed with: Anticipated discharge place: Home Past Medical History Past Medical History: Coronary Artery Disease (CAD), Chest Pain / Angina, Heart Failure, COPD, CVA/TIA, Diabetes Mellitus, Fibromyalgia, GERD/Reflux, Hyperlipidemia, Hypertension, Liver Disease, Myocardial Infarction ([place]), Osteoarthritis (OA), Renal Disease, Thyroid Disorder Additional Past Medical History / Comment(s): NEUROPATHY BILATERAL FEET, DDD NECK AND LOWER BACK, hiatal hernia, states no need for BP med anymore(gets orthostatic hypotension-has "medtronic heart loop monitor"), hx hepatitis as a kid, hx fractrured left wrist, hx stroke 03/03/22-problems with balance since. Last Myocardial Infarction Date:: 02/2024 History of Any Multi-Drug Resistant Organisms: MRSA Date of last positivie culture/infection: 2017 MDRO Source:: stomach Past Surgical History: Adenoidectomy, Back Surgery, Bladder Surgery, Hysterectomy, Orthopedic Surgery, Tonsillectomy, Tubal Ligation Additional Past Surgical History / Comment(s): Debridement right foot, PICC line placed and later removed, bladder suspension, exploratory laparotomy, right great toe amputation, pins right in foot, cataracts removed, left wrist ORIF, loop heart monitor placed 02/2022. Past Anesthesia/Blood Transfusion Reactions: No Reported Reaction, Motion Sickness Additional Past Anesthesia/Blood Transfusion Reaction / Comment(s): . Type of Cardiac Device: Loop Past Psychological History: Anxiety, Depression Smoking Status: Former smoker Past Alcohol Use History: Occasional Past Drug Use History: Marijuana, Methamphetamine - Past Family History Sister(s) Family Medical History: Coronary Artery Disease (CAD) Mother Family Medical History: Pulmonary Embolus Additional Family Medical History / Comment(s): . Father Additional Family Medical History / Comment(s): at 26yrs old--accident at work Medications and Allergies Home Medications Medication Instructions Recorded Confirmed Type Levothyroxine Sodium [Synthroid] 175 mcg PO DAILY 02/02/22 08/26/24 History Ondansetron [Zofran] 4 mg PO Q8H PRN 02/06/24 08/26/24 History traZODone HCL [Desyrel] 50 mg PO HS 02/09/24 08/26/24 History Clopidogrel [Plavix] 75 mg PO DAILY tab 03/18/24 08/26/24 Rx Ipratropium-Albuterol Nebulize 3 ml INHALATION RT-Q2H PRN each 03/18/24 08/26/24 Rx [Duoneb 0.5 mg-3 mg/3 ml Soln] Pantoprazole [Protonix] 40 mg PO AC-BRKFST tab 03/18/24 08/26/24 Rx Acetaminophen Tab [Tylenol] 650 mg PO Q6H PRN 06/30/24 08/26/24 History Aspirin EC [Ecotrin Low Dose] 81 mg PO DAILY 06/30/24 08/26/24 History Atorvastatin [Lipitor] 40 mg PO HS 06/30/24 08/26/24 History Fluticasone/Umeclidin/Vilanter 1 puff INHALATION RT-DAILY 06/30/24 08/26/24 History [Trelegy Ellipta 100-62.5-25] Ipratropium [place] [Atrovent Hfa] 2 puff INHALATION RT-Q6H PRN 06/30/24 08/26/24 History Polyvinyl Alcohol/Povidone [Clear 1 drop BOTH EYES QID PRN 06/30/24 08/26/24 History Eyes Natural Tears Drop] Metoprolol Succinate (ER) [Toprol 25 mg PO DAILY #30 tab 07/05/24 08/26/24 Rx XL] Torsemide [Demadex] 40 mg PO DAILY #30 tab 07/05/24 08/26/24 Rx Insulin Aspart [NovoLOG Flexpen] See Protocol SQ AC-TID 08/26/24 08/26/24 History Insulin Glargine,Hum.rec.anlog 10 - 12 units SQ DAILY 08/26/24 08/26/24 History [Lantus Solostar Pen] Sacubitril/Valsartan [Entresto 24 1 each PO BID 30 Days #60 tab 08/29/24 Rx mg-26 mg Tablet] Allergies Allergy/AdvReac Type Severity Reaction Status Date / Time Sulfa (Sulfonamide Allergy Rash/Hives Verified 09/13/24 19:38 Antibiotics) Physical Exam Vitals: Vital Signs Temp Pulse Resp BP Pulse Ox 09/13/24 23:22 85 16 114/48 95 09/13/24 19:36 97.7 F 80 22 130/75 98 Intake and Output 09/13/24 09/13/24 09/14/24 14:59 22:59 06:59 Other: Weight 65.317 kg Results CBC & Chem 7: 09/13/24 20:10 09/13/24 20:10 Labs: Abnormal Lab Results - Last 24 Hours (Table) 09/13/24 09/13/24 09/13/24 Range/Units 20:10 20:10 21:57 MCV 104.7 H (80.0-100.0) fL MCHC 30.6 L (31.0-37.0) g/dL Neutrophils # 8.1 H (1.3-7.7) k/uL Lymphocytes # 0.9 L (1.0-4.8) k/uL Sodium 130 L (137-145) mmol/L Chloride 94 L (98-107) mmol/L BUN 19 H (7-17) mg/dL Creatinine 1.60 H (0.52-1.04) mg/dL Glucose 263 H (74-99) mg/dL AST 46 H (14-36) U/L Alkaline Phosphatase 196 H (38-126) U/L Lipase 21 L (23-300) U/L Urine Appearance Turbid H (Clear) Urine Protein 3+ H (Negative) Urine Glucose (UA) 3+ H (Negative) Urine Ketones Trace H (Negative) Urine Blood Large H (Negative) Ur Leukocyte Esterase Large H (Negative) Urine RBC 87 H (0-5) /hpf Urine WBC >182 H (0-5) /hpf Urine WBC Clumps Many H (None) /hpf Ur Squamous Epith Cells 9 H (0-4) /hpf Urine Bacteria Many H (None) /hpf Urine Mucus Few H (None) /hpf
[2024-09-14] MEDS ORDERED: AMPICILLIN SULBACTAM IVPB SCH (06:00)
[2024-09-14] MEDS ORDERED: SODIUM CHLORIDE 0.9% IVPB SCH (06:00)
[2024-09-14 06:26] LABS: African American GFR (CKD) 22 (>60 ml/min/1.73 sqM); Anion Gap 22 mmol/L; Blood Urea Nitrogen 26 mg/dL (7-17); Calcium 8.5 mg/dL (8.4-10.2); Carbon Dioxide 12 mmol/L (22-30); Chloride 96 mmol/L (98-107); Non-African American GFR(CKD) 19 (>60 ml/min/1.73 sqM); Sodium 130 mmol/L (137-145)
[2024-09-14] MEDS: INSULIN ASPART (NovoLOG) 100 UNIT/ML VIAL SQ SCH ×2 (06:28→12:17)
[2024-09-14 06:30] LABS: Glucose,Whole Blood 569 mg/dL (70-110)
[2024-09-14 06:30] LABS: Glucose,Whole Blood 530 mg/dL (70-110)
[2024-09-14 06:32] LABS: Glucose 572 mg/dL (74-99)
[2024-09-14 06:33] LABS: Glucose,Whole Blood 536 mg/dL (70-110)
[2024-09-14] MEDS: INSULIN ASPART (NovoLOG) 100 UNIT/ML VIAL SQ ONE (06:59)
[2024-09-14] MEDS: AMPICILLIN-SULBACTAM 3 GM in SODIUM CHLORIDE 0.9% 100 ML IVPB SCH (07:00)
[2024-09-14] MEDS: HEPARIN SODIUM,PORCINE 5,000 UNIT/ML 1 ML VIAL SQ SCH (08:59)
--- NOTE | 2024-09-14 10:06 | P.GSCN ---
History of Present Illness Consult date: 09/14/24 Reason for Consult: Emphysematous cystitis Requesting physician: John Varela History of present illness: The patient is a 59-year-old white female with end-stage renal disease. She does not produce much urine. She presented with abdominal pain, a strong urge to void, and difficulty voiding which began yesterday after she underwent dialysis. She also reports dysuria and pneumaturia, and noticed bleeding with wiping. She is feels that her symptoms are slightly improved today. She was hospitalized in February 2024 and found to empty her bladder incompletely. Renal and bladder ultrasound were unremarkable at that time. Her multiple medical problems include COPD, chronic ongoing tobacco dependence, CVA/TIA, longstanding diabetes mellitus, hyperlipidemia, hypertension, hypothyroidism, fibromyalgia, and GERD. She has acute kidney injury and began hemodialysis on March 08, 2024. The patient has been previously followed by Dr. Robbins. She was last seen by him in February 2022. Cystoscopy at that time was normal, and she was verified to be emptying her bladder completely. She has a history of recurrent UTIs and and states that she underwent an exploratory laparotomy 5 to 6 years ago for a suspected colovesical fistula, but none was identified. Review of Systems - Constitutional Denies chills, Denies fever - Cardiovascular Reports high blood pressure - Gastrointestinal Reports abdominal pain - Genitourinary Genitourinary: Reports dysuria, Reports hematuria Past Medical History Past Medical History: Coronary Artery Disease (CAD), Chest Pain / Angina, Heart Failure, COPD, CVA/TIA, Diabetes Mellitus, Fibromyalgia, GERD/Reflux, Hyperlipidemia, Hypertension, Liver Disease, Myocardial Infarction ([place]), Osteoarthritis (OA), Renal Disease, Thyroid Disorder Additional Past Medical History / Comment(s): NEUROPATHY BILATERAL FEET, DDD NECK AND LOWER BACK, hiatal hernia, states no need for BP med anymore(gets orthostatic hypotension-has "medtronic heart loop monitor"), hx hepatitis as a kid, hx fractrured left wrist, hx stroke 03/03/22-problems with balance since. Last Myocardial Infarction Date:: 02/2024 History of Any Multi-Drug Resistant Organisms: MRSA Year Discovered:: 2018 MDRO Source:: stomach Past Surgical History: Adenoidectomy, Back Surgery, Bladder Surgery, Hysterectomy, Orthopedic Surgery, Tonsillectomy, Tubal Ligation Additional Past Surgical History / Comment(s): Debridement right foot, PICC line placed and later removed, bladder suspension, exploratory laparotomy, right great toe amputation, pins right in foot, cataracts removed, left wrist ORIF, loop heart monitor placed 02/2022. Past Anesthesia/Blood Transfusion Reactions: No Reported Reaction, Motion Sickness Additional Past Anesthesia/Blood Transfusion Reaction / Comm: . Type of Cardiac Device: Loop Past Psychological History: Anxiety, Depression Smoking Status: Former smoker Past Alcohol Use History: Occasional Past Drug Use History: Marijuana, Methamphetamine - Past Family History Sister(s) Family Medical History: Coronary Artery Disease (CAD) Mother Family Medical History: Pulmonary Embolus Additional Family Medical History / Comment(s): . Father Additional Family Medical History / Comment(s): at 26yrs old--accident at work Medications and Allergies Home Medications Medication Instructions Recorded Confirmed Type Levothyroxine Sodium [Synthroid] 175 mcg PO DAILY 02/02/22 08/26/24 History Ondansetron [Zofran] 4 mg PO Q8H PRN 02/06/24 08/26/24 History traZODone HCL [Desyrel] 50 mg PO HS 02/09/24 08/26/24 History Clopidogrel [Plavix] 75 mg PO DAILY tab 03/18/24 08/26/24 Rx Ipratropium-Albuterol Nebulize 3 ml INHALATION RT-Q2H PRN each 03/18/24 08/26/24 Rx [Duoneb 0.5 mg-3 mg/3 ml Soln] Pantoprazole [Protonix] 40 mg PO AC-BRKFST tab 03/18/24 08/26/24 Rx Acetaminophen Tab [Tylenol] 650 mg PO Q6H PRN 06/30/24 08/26/24 History Aspirin EC [Ecotrin Low Dose] 81 mg PO DAILY 06/30/24 08/26/24 History Atorvastatin [Lipitor] 40 mg PO HS 06/30/24 08/26/24 History Fluticasone/Umeclidin/Vilanter 1 puff INHALATION RT-DAILY 06/30/24 08/26/24 History [Trelegy Ellipta 100-62.5-25] Ipratropium [place] [Atrovent Hfa] 2 puff INHALATION RT-Q6H PRN 06/30/24 08/26/24 History Polyvinyl Alcohol/Povidone [Clear 1 drop BOTH EYES QID PRN 06/30/24 08/26/24 History Eyes Natural Tears Drop] Metoprolol Succinate (ER) [Toprol 25 mg PO DAILY #30 tab 07/05/24 08/26/24 Rx XL] Torsemide [Demadex] 40 mg PO DAILY #30 tab 07/05/24 08/26/24 Rx Insulin Aspart [NovoLOG Flexpen] See Protocol SQ AC-TID 08/26/24 08/26/24 History Insulin Glargine,Hum.rec.anlog 10 - 12 units SQ DAILY 08/26/24 08/26/24 History [Lantus Solostar Pen] Sacubitril/Valsartan [Entresto 24 1 each PO BID 30 Days #60 tab 08/29/24 Rx mg-26 mg Tablet] Allergies Allergy/AdvReac Type Severity Reaction Status Date / Time Sulfa (Sulfonamide Allergy Rash/Hives Verified 09/13/24 19:38 Antibiotics) Surgical - Exam Vital Signs Temp Pulse Resp BP Pulse Ox 97.7 F 80 22 130/75 98 09/13/24 19:36 09/13/24 19:36 09/13/24 19:36 09/13/24 19:36 09/13/24 19:36 - General well developed, well nourished, moderate distress - Respiratory normal respiratory effort - Abdomen Soft, non-distended, no mass. Mild diffuse tenderness, no guarding or rebound. Results - Labs 09/13/24 20:10 09/14/24 05:17 Abnormal Lab Results - Last 24 Hours (Table) 09/13/24 09/13/24 09/13/24 Range/Units 20:10 20:10 21:57 MCV 104.7 H (80.0-100.0) fL MCHC 30.6 L (31.0-37.0) g/dL Neutrophils # 8.1 H (1.3-7.7) k/uL Lymphocytes # 0.9 L (1.0-4.8) k/uL Sodium 130 L (137-145) mmol/L Chloride 94 L (98-107) mmol/L Carbon Dioxide (22-30) mmol/L BUN 19 H (7-17) mg/dL Creatinine 1.60 H (0.52-1.04) mg/dL Glucose 263 H (74-99) mg/dL POC Glucose (mg/dL) (70-110) mg/dL AST 46 H (14-36) U/L Alkaline Phosphatase 196 H (38-126) U/L Lipase 21 L (23-300) U/L Urine Appearance Turbid H (Clear) Urine Protein 3+ H (Negative) Urine Glucose (UA) 3+ H (Negative) Urine Ketones Trace H (Negative) Urine Blood Large H (Negative) Ur Leukocyte Esterase Large H (Negative) Urine RBC 87 H (0-5) /hpf Urine WBC >182 H (0-5) /hpf Urine WBC Clumps Many H (None) /hpf Ur Squamous Epith Cells 9 H (0-4) /hpf Urine Bacteria Many H (None) /hpf Urine Mucus Few H (None) /hpf 09/14/24 09/14/24 09/14/24 Range/Units 05:17 06:27 06:28 MCV (80.0-100.0) fL MCHC (31.0-37.0) g/dL Neutrophils # (1.3-7.7) k/uL Lymphocytes # (1.0-4.8) k/uL Sodium 130 L (137-145) mmol/L Chloride 96 L (98-107) mmol/L Carbon Dioxide 12 L (22-30) mmol/L BUN 26 H (7-17) mg/dL Creatinine 2.64 H (0.52-1.04) mg/dL Glucose 572 H* (74-99) mg/dL POC Glucose (mg/dL) 530 H* 569 H* (70-110) mg/dL AST (14-36) U/L Alkaline Phosphatase (38-126) U/L Lipase (23-300) U/L Urine Appearance (Clear) Urine Protein (Negative) Urine Glucose (UA) (Negative) Urine Ketones (Negative) Urine Blood (Negative) Ur Leukocyte Esterase (Negative) Urine RBC (0-5) /hpf Urine WBC (0-5) /hpf Urine WBC Clumps (None) /hpf Ur Squamous Epith Cells (0-4) /hpf Urine Bacteria (None) /hpf Urine Mucus (None) /hpf 09/14/24 Range/Units 06:31 MCV (80.0-100.0) fL MCHC (31.0-37.0) g/dL Neutrophils # (1.3-7.7) k/uL Lymphocytes # (1.0-4.8) k/uL Sodium (137-145) mmol/L Chloride (98-107) mmol/L Carbon Dioxide (22-30) mmol/L BUN (7-17) mg/dL Creatinine (0.52-1.04) mg/dL Glucose (74-99) mg/dL POC Glucose (mg/dL) 536 H* (70-110) mg/dL AST (14-36) U/L Alkaline Phosphatase (38-126) U/L Lipase (23-300) U/L Urine Appearance (Clear) Urine Protein (Negative) Urine Glucose (UA) (Negative) Urine Ketones (Negative) Urine Blood (Negative) Ur Leukocyte Esterase (Negative) Urine RBC (0-5) /hpf Urine WBC (0-5) /hpf Urine WBC Clumps (None) /hpf Ur Squamous Epith Cells (0-4) /hpf Urine Bacteria (None) /hpf Urine Mucus (None) /hpf Diabetes panel 09/13/24 09/14/24 Range/Units 20:10 05:17 Sodium 130 L 130 L (137-145) mmol/L Potassium 4.5 5.0 (3.5-5.1) mmol/L Chloride 94 L 96 L (98-107) mmol/L Carbon Dioxide 27 12 L (22-30) mmol/L BUN 19 H 26 H (7-17) mg/dL Creatinine 1.60 H 2.64 H (0.52-1.04) mg/dL Glucose 263 H 572 H* (74-99) mg/dL Calcium 8.5 8.5 (8.4-10.2) mg/dL AST 46 H (14-36) U/L ALT 23 (4-34) U/L Alkaline Phosphatase 196 H (38-126) U/L Total Protein 7.4 (6.3-8.2) g/dL Albumin 3.8 (3.5-5.0) g/dL Calcium panel 09/13/24 09/14/24 Range/Units 20:10 05:17 Calcium 8.5 8.5 (8.4-10.2) mg/dL Albumin 3.8 (3.5-5.0) g/dL Pituitary panel 09/13/24 09/14/24 Range/Units 20:10 05:17 Sodium 130 L 130 L (137-145) mmol/L Potassium 4.5 5.0 (3.5-5.1) mmol/L Chloride 94 L 96 L (98-107) mmol/L Carbon Dioxide 27 12 L (22-30) mmol/L BUN 19 H 26 H (7-17) mg/dL Creatinine 1.60 H 2.64 H (0.52-1.04) mg/dL Glucose 263 H 572 H* (74-99) mg/dL Calcium 8.5 8.5 (8.4-10.2) mg/dL Adrenal panel 09/13/24 09/14/24 Range/Units 20:10 05:17 Sodium 130 L 130 L (137-145) mmol/L Potassium 4.5 5.0 (3.5-5.1) mmol/L Chloride 94 L 96 L (98-107) mmol/L Carbon Dioxide 27 12 L (22-30) mmol/L BUN 19 H 26 H (7-17) mg/dL Creatinine 1.60 H 2.64 H (0.52-1.04) mg/dL Glucose 263 H 572 H* (74-99) mg/dL Calcium 8.5 8.5 (8.4-10.2) mg/dL Total Bilirubin 0.9 (0.2-1.3) mg/dL AST 46 H (14-36) U/L ALT 23 (4-34) U/L Alkaline Phosphatase 196 H (38-126) U/L Total Protein 7.4 (6.3-8.2) g/dL Albumin 3.8 (3.5-5.0) g/dL - Imaging CT scan - pelvis: report reviewed, image reviewed Assessment and Plan Assessment: Urinalysis is consistent with infection. CT scan shows a large amount of air within the urinary bladder, as well as evidence of emphysematous cystitis. Plan: Continue Unasyn, pending the urine and blood culture results. A Salda[place] catheter will be placed to decompress the bladder. Although the air in the bladder could be the result of a gas-forming organism, I believe this is unlikely given the volume of air and she will require a formal evaluation to rule out an enterovesical fistula. Time with Patient: Greater than 30
[2024-09-14 11:40] LABS: Glucose,Whole Blood 199 mg/dL (70-110)
[2024-09-14] MEDS: PIPERACILLIN-TAZOBACTAM 3.375 GM in SODIUM CHLORIDE 0.9% 100 ML IVPB SCH (12:11)
--- NOTE | 2024-09-14 12:27 | P.NPCON ---
History of Present Illness - Reason for Consult Consult date: 09/14/24 - History of Present Illness Patient is a 59-year-old female presented to the emergency department with abdominal pain. Patient reported that this morning when she was using bathroom she felt pressure in the suprapubic region. Patient reported that she received dialysis earlier today and when she got home she started having intense suprapubic pressure. She also noticed some blood in her urine but states that has been a problem for quite some time. She characterizes the pain as a pressure-like sensation that comes and goes with 9 out of 10 intensity. She stated that she feels like she has to urinate but she cannot and there is also pain and burning when she tries to urinate. Vital signs reviewed General: NAD, AAOx3 Head: atraumatic, normocephalic, symmetric Cardiovascular: S1 S2 reg, no murmur Lungs: CTA bilateral, no rhonchi, no rales, no accessory muscle use Abdominal: soft, suprapubic tenderness, non distended Extremities: No cyanosis, clubbing, or pedal edema Review of Systems Constitutional: Reports as per HPI Past Medical History Past Medical History: Coronary Artery Disease (CAD), Chest Pain / Angina, Heart Failure, COPD, CVA/TIA, Diabetes Mellitus, Fibromyalgia, GERD/Reflux, Hyperlipidemia, Hypertension, Liver Disease, Myocardial Infarction ([place]), Osteoarthritis (OA), Renal Disease, Thyroid Disorder Additional Past Medical History / Comment(s): NEUROPATHY BILATERAL FEET, DDD NECK AND LOWER BACK, hiatal hernia, states no need for BP med anymore(gets orthostatic hypotension-has "medtronic heart loop monitor"), hx hepatitis as a kid, hx fractrured left wrist, hx stroke 03/03/22-problems with balance since. Last Myocardial Infarction Date:: 02/2024 History of Any Multi-Drug Resistant Organisms: MRSA Date of last positivie culture/infection: 2017 MDRO Source:: stomach Past Surgical History: Adenoidectomy, Back Surgery, Bladder Surgery, Hysterectomy, Orthopedic Surgery, Tonsillectomy, Tubal Ligation Additional Past Surgical History / Comment(s): Debridement right foot, PICC line placed and later removed, bladder suspension, exploratory laparotomy, right great toe amputation, pins right in foot, cataracts removed, left wrist ORIF, loop heart monitor placed 02/2022. Past Anesthesia/Blood Transfusion Reactions: No Reported Reaction, Motion Sickness Additional Past Anesthesia/Blood Transfusion Reaction / Comment(s): . Type of Cardiac Device: Loop Past Psychological History: Anxiety, Depression Smoking Status: Former smoker Past Alcohol Use History: Occasional Past Drug Use History: Marijuana, Methamphetamine - Past Family History Sister(s) Family Medical History: Coronary Artery Disease (CAD) Mother Family Medical History: Pulmonary Embolus Additional Family Medical History / Comment(s): . Father Additional Family Medical History / Comment(s): at 26yrs old--accident at work Medications and Allergies Home Medications Medication Instructions Recorded Confirmed Type Levothyroxine Sodium [Synthroid] 175 mcg PO DAILY 02/02/22 09/14/24 History Ondansetron [Zofran] 4 mg PO Q8H PRN 02/06/24 09/14/24 History traZODone HCL [Desyrel] 50 mg PO HS 02/09/24 09/14/24 History Clopidogrel [Plavix] 75 mg PO DAILY tab 03/18/24 09/14/24 Rx Ipratropium-Albuterol Nebulize 3 ml INHALATION RT-Q2H PRN each 03/18/24 09/14/24 Rx [Duoneb 0.5 mg-3 mg/3 ml Soln] Pantoprazole [Protonix] 40 mg PO AC-BRKFST tab 03/18/24 09/14/24 Rx Acetaminophen Tab [Tylenol] 650 mg PO Q6H PRN 06/30/24 09/14/24 History Aspirin EC [Ecotrin Low Dose] 81 mg PO DAILY 06/30/24 09/14/24 History Atorvastatin [Lipitor] 40 mg PO HS 06/30/24 09/14/24 History Fluticasone/Umeclidin/Vilanter 1 puff INHALATION RT-DAILY 06/30/24 09/14/24 History [Trelegy Ellipta 100-62.5-25] Ipratropium [place] [Atrovent Hfa] 2 puff INHALATION RT-Q6H PRN 06/30/24 History Polyvinyl Alcohol/Povidone [Clear 1 drop BOTH EYES QID PRN 06/30/24 09/14/24 History Eyes Natural Tears Drop] Metoprolol Succinate (ER) [Toprol 25 mg PO DAILY #30 tab 07/05/24 09/14/24 Rx XL] Torsemide [Demadex] 40 mg PO DAILY #30 tab 07/05/24 09/14/24 Rx Insulin Aspart [NovoLOG Flexpen] See Protocol SQ AC-TID 08/26/24 09/14/24 History Insulin Glargine,Hum.rec.anlog 10 - 12 units SQ DAILY 08/26/24 09/14/24 History [Lantus Solostar Pen] Sacubitril/Valsartan [Entresto 24 1 each PO BID 30 Days #60 tab 08/29/24 09/14/24 Rx mg-26 mg Tablet] Allergies Allergy/AdvReac Type Severity Reaction Status Date / Time Sulfa (Sulfonamide Allergy Rash/Hives Verified 09/14/24 10:32 Antibiotics) Physical Exam Vitals: Vital Signs Temp Pulse Pulse Resp BP BP Pulse Ox 09/14/24 08:30 98.5 F 86 18 102/52 96 09/14/24 07:01 98.4 F 99 20 105/56 97 09/14/24 00:05 97.7 F 89 15 91/56 99 09/13/24 23:22 85 16 114/48 95 09/13/24 19:36 97.7 F 80 22 130/75 98 Intake and Output 09/13/24 09/14/24 09/14/24 22:59 06:59 14:59 Other: # Voids 1 1 Weight 65.317 kg 65.317 kg Results - Lab Results Most recent lab results Calcium 8.5 mg/dL (8.4-10.2) 09/14/24 05:17 09/13/24 20:10 09/14/24 05:17 Assessment and Plan Assessment: 1. ESRD on HD MWF, last treatment yesterday. 2. Abdominal Pain possibly related to UTI. CT howed emphysematous cystitis. 3. UTI, cultures pending. 4. Anemia with KCD 5. HTN with CKD 6. MBD with KCD 7. Hyponatremia related to HD. Plan: Urology following for emphysematous cystitis Saldaña catheter placed per urology Maintain HD MWF schedule ABX per primary
[2024-09-14] MEDS ORDERED: INSULIN ASPART (NovoLOG) 100 UNIT/ML VIAL SQ SCH (12:30)
[2024-09-14] MEDS: HYDROmorphone 1 MG/ML 1 ML SYRINGE IVP PRN (12:40)
[2024-09-14] MEDS ORDERED: IPRATROPIUM-ALBUTEROL 3 ML NEB INHALATION PRN (12:45)
[2024-09-14 16:30] LABS: Glucose,Whole Blood 70 mg/dL (70-110)
[2024-09-14 16:48] LABS: Glucose,Whole Blood 91 mg/dL (70-110)
[2024-09-14 20:46] LABS: Glucose,Whole Blood 329 mg/dL (70-110)
[2024-09-14] MEDS: INSULIN DETEMIR (LEVEMIR) 100 UNIT/ML SYR SQ SCH (21:52)
[2024-09-14] MEDS: ATORVASTATIN 40 MG TAB PO SCH (21:53)
[2024-09-14] MEDS: traZODone HCL 50 MG TAB PO SCH (21:53)
[2024-09-14] MEDS: SACUBITRIL/VALSARTAN 24 MG-26 MG TABLET PO SCH (21:53)
[2024-09-14] MEDS: HYDROmorphone 0.5 MG/0.5 ML SYRINGE IVP PRN (21:58)
--- NOTE | 2024-09-14 22:37 | P.CONS ---
History of Present Illness - Reason for Consult Consult date: 09/14/24 Emphysematous cystitis with microperforation Requesting physician: Lilly Cruz - Chief Complaint Abdominal pain x will be - History of Present Illness Patient is a 59-year-old female with a past medical history significant for coronary artery disease CVA TIA diabetes mellitus fibromyalgia hypertension hyperlipidemia patient did have a history of end-stage renal disease on hemodialysis since March 2024 through the right subclavian permacatheter that has to be changed once because of nonfunctioning but no infection patient presenting to the hospital for evaluation of abdominal pain that started the day before presentation to the hospital pain has been mostly in suprapubic area describing the pain to be sharp/pressure and unable to urinate he makes small amount of urine and there was some blood in the urine as well patient felt nauseous but no vomiting denies having any diarrhea or constipation did have some stents with the symptoms the patient presented to hospital on arrival to the ER the patient was afebrile no fever has been recorded subseq uently patient was not tachycardic hypotensive currently on a 2 L nasal oxygen and O2 sats on room air documented patient did have white count of 9.8 with a left shift BUN and creatinine has been elevated AST of 46 urine was positive with large leukocyte esterase more than 1-2 WBC, blood urine culture has been obtained patient did have abdominal pelvis CT emphysematous cystitis with finding concerning for microperforation and surrounding small foci of pneumoperitoneum evaluation for a fistula that she is limited patient has been evaluated by urology this morning and recommended Saldaña catheter placement for decompression Review of Systems Positive point and negatives has been mentioned in the HPI, complete review of systems was performed and all other systems are negative Past Medical History Past Medical History: Coronary Artery Disease (CAD), Chest Pain / Angina, Heart Failure, COPD, CVA/TIA, Diabetes Mellitus, Fibromyalgia, GERD/Reflux, Hyperlipidemia, Hypertension, Liver Disease, Myocardial Infarction ([place]), Osteo arthritis (OA), Renal Disease, Thyroid Disorder Additional Past Medical History / Comment(s): NEUROPATHY BILATERAL FEET, DDD NECK AND LOWER BACK, hiatal hernia, states no need for BP med anymore(gets orthostatic hypotension-has "medtronic heart loop monitor"), hx hepatitis as a kid, hx fractrured left wrist, hx stroke 03/03/22-problems with balance since. Last Myocardial Infarction Date:: 02/2024 History of Any Multi-Drug Resistant Organisms: MRSA Year Discovered:: 2018 MDRO Source:: stomach Past Surgical History: Adenoidectomy, Back Surgery, Bladder Surgery, Hysterectomy, Orthopedic Surgery, Tonsillectomy, Tubal Ligation Additional Past Surgical History / Comment(s): Debridement right foot, PICC line placed and later removed, bladder suspension, exploratory laparotomy, right great toe amputation, pins right in foot, cataracts removed, left wrist ORIF, loop heart monitor placed 02/2022. Past Anesthesia/Blood Transfusion Reactions: No Reported Reaction, Motion Sickness Additional Past Anesthesia/Blood Transfusion Reaction / Comm: . Type of Cardiac Device: Loop Past Psychological History: Anxiety, Depression Smoking Status: Former smoker Past Alcohol Use History: Occasional Past Drug Use History: Marijuana, Methamphetamine - Past Family History Sister(s) Family Medical History: Coronary Artery Disease (CAD) Mother Family Medical History: Pulmonary Embolus Additional Family Medical History / Comment(s): . Father Additional Family Medical History / Comment(s): at 26yrs old--accident at work Medications and Allergies Home Medications Medication Instructions Recorded Confirmed Type Levothyroxine Sodium [Synthroid] 175 mcg PO DAILY 02/02/22 09/14/24 History Ondansetron [Zofran] 4 mg PO Q8H PRN 02/06/24 09/14/24 History traZODone HCL [Desyrel] 50 mg PO HS 02/09/24 09/14/24 History Clopidogrel [Plavix] 75 mg PO DAILY tab 03/18/24 09/14/24 Rx Ipratropium-Albuterol Nebulize 3 ml INHALATION RT-Q2H PRN each 03/18/24 Rx [Duoneb 0.5 mg-3 mg/3 ml Soln] Pantoprazole [Protonix] 40 mg PO AC-BRKFST tab 03/18/24 09/14/24 Rx Acetaminophen Tab [Tylenol] 650 mg PO Q6H PRN 06/30/24 09/14/24 History Aspirin EC [Ecotrin Low Dose] 81 mg PO DAILY 06/30/24 09/14/24 History Atorvastatin [Lipitor] 40 mg PO HS 06/30/24 09/14/24 History Fluticasone/Umeclidin/Vilanter 1 puff INHALATION RT-DAILY 06/30/24 09/14/24 History [Trelegy Ellipta 100-62.5-25] Ipratropium [place] [Atrovent Hfa] 2 puff INHALATION RT-Q6H PRN 06/30/24 09/14/24 History Polyvinyl Alcohol/Povidone [Clear 1 drop BOTH EYES QID PRN 06/30/24 09/14/24 History Eyes Natural Tears Drop] Metoprolol Succinate (ER) [Toprol 25 mg PO DAILY #30 tab 07/05/24 09/14/24 Rx XL] Torsemide [Demadex] 40 mg PO DAILY #30 tab 07/05/24 09/14/24 Rx Insulin Aspart [NovoLOG Flexpen] See Protocol SQ AC-TID 08/26/24 09/14/24 History Insulin Glargine,Hum.rec.anlog 10 - 12 units SQ DAILY 08/26/24 09/14/24 History [Lantus Solostar Pen] Sacubitril/Valsartan [Entresto 24 1 each PO BID 30 Days #60 tab 08/29/24 09/14/24 Rx mg-26 mg Tablet] Allergies Allergy/AdvReac Type Severity Reaction Status Date / Time Sulfa (Sulfonamide Allergy Rash/Hives Verified 09/14/24 10:32 Antibiotics) Physical Exam Vitals: Vital Signs Temp Pulse Pulse Resp BP BP Pulse Ox 09/14/24 08:30 98.5 F 86 18 102/52 96 09/14/24 07:01 98.4 F 99 20 105/56 97 09/14/24 00:05 97.7 F 89 15 91/56 99 09/13/24 23:22 85 16 114/48 95 09/13/24 19:36 97.7 F 80 22 130/75 98 Intake and Output 09/13/24 09/14/24 09/14/24 22:59 06:59 14:59 Other: # Voids 1 1 Weight 65.317 kg 65.317 kg GENERAL DESCRIPTION: Middle-aged female up in bed, no distress. No tachypnea or accessory muscle of respiration use. HEENT: Shows Pallor , no scleral icterus. Oral mucous membrane is dry. No pharyngeal erythema or thrush NECK: Trachea central, no thyromegaly. LUNGS: Unlabored breathing. Clear to auscultation anteriorly. No wheeze or crackle. HEART: S1, S2, regular rate and rhythm. No loud murmur ABDOMEN: Soft, no tenderness EXTREMITIES: No edema of feet. SKIN: No rash, no masses palpable. NEUROLOGICAL: The patient is awake, alert, oriented x3, mood and affect normal. Results CBC & Chem 7: 09/15/24 06:07 09/15/24 06:07 Labs: Abnormal Lab Results - Last 24 Hours (Table) 09/13/24 09/13/24 09/13/24 Range/Units 20:10 20:10 21:57 MCV 104.7 H (80.0-100.0) fL MCHC 30.6 L (31.0-37.0) g/dL Neutrophils # 8.1 H (1.3-7.7) k/uL Lymphocytes # 0.9 L (1.0-4.8) k/uL Sodium 130 L (137-145) mmol/L Chloride 94 L (98-107) mmol/L Carbon Dioxide (22-30) mmol/L BUN 19 H (7-17) mg/dL Creatinine 1.60 H (0.52-1.04) mg/dL Glucose 263 H (74-99) mg/dL POC Glucose (mg/dL) (70-110) mg/dL AST 46 H (14-36) U/L Alkaline Phosphatase 196 H (38-126) U/L Lipase 21 L (23-300) U/L Urine Appearance Turbid H (Clear) Urine Protein 3+ H (Negative) Urine Glucose (UA) 3+ H (Negative) Urine Ketones Trace H (Negative) Urine Blood Large H (Negative) Ur Leukocyte Esterase Large H (Negative) Urine RBC 87 H (0-5) /hpf Urine WBC >182 H (0-5) /hpf Urine WBC Clumps Many H (None) /hpf Ur Squamous Epith Cells 9 H (0-4) /hpf Urine Bacteria Many H (None) /hpf Urine Mucus Few H (None) /hpf 09/14/24 09/14/24 09/14/24 Range/Units 05:17 06:27 06:28 MCV (80.0-100.0) fL MCHC (31.0-37.0) g/dL Neutrophils # (1.3-7.7) k/uL Lymphocytes # (1.0-4.8) k/uL Sodium 130 L (137-145) mmol/L Chloride 96 L (98-107) mmol/L Carbon Dioxide 12 L (22-30) mmol/L BUN 26 H (7-17) mg/dL Creatinine 2.64 H (0.52-1.04) mg/dL Glucose 572 H* (74-99) mg/dL POC Glucose (mg/dL) 530 H* 569 H* (70-110) mg/dL AST (14-36) U/L Alkaline Phosphatase (38-126) U/L Lipase (23-300) U/L Urine Appearance (Clear) Urine Protein (Negative) Urine Glucose (UA) (Negative) Urine Ketones (Negative) Urine Blood (Negative) Ur Leukocyte Esterase (Negative) Urine RBC (0-5) /hpf Urine WBC (0-5) /hpf Urine WBC Clumps (None) /hpf Ur Squamous Epith Cells (0-4) /hpf Urine Bacteria (None) /hpf Urine Mucus (None) /hpf 09/14/24 Range/Units 06:31 MCV (80.0-100.0) fL MCHC (31.0-37.0) g/dL Neutrophils # (1.3-7.7) k/uL Lymphocytes # (1.0-4.8) k/uL Sodium (137-145) mmol/L Chloride (98-107) mmol/L Carbon Dioxide (22-30) mmol/L BUN (7-17) mg/dL Creatinine (0.52-1.04) mg/dL Glucose (74-99) mg/dL POC Glucose (mg/dL) 536 H* (70-110) mg/dL AST (14-36) U/L Alkaline Phosphatase (38-126) U/L Lipase (23-300) U/L Urine Appearance (Clear) Urine Protein (Negative) Urine Glucose (UA) (Negative) Urine Ketones (Negative) Urine Blood (Negative) Ur Leukocyte Esterase (Negative) Urine RBC (0-5) /hpf Urine WBC (0-5) /hpf Urine WBC Clumps (None) /hpf Ur Squamous Epith Cells (0-4) /hpf Urine Bacteria (None) /hpf Urine Mucus (None) /hpf Assessment and Plan (1) Emphysematous cystitis Current Visit: Yes Status: Acute Code(s): N30.80 - OTHER CYSTITIS WITHOUT HEMATURIA SNOMED Code(s): 39315560 Plan: 1patient presented to hospital with acute abdominal pain which has been mostly suprapubic area patient makes small amount of urine and noticed to have some blood with significant abnormality seen on the CT concerning for emphysematous cystitis and possible microperforation versus fistula. 2we will discontinue Unasyn and start the patient on Zosyn to cover for more resistant pathogen while waiting for the culture to finalize We will follow on clinical condition and cultures to further adjust medication if needed Thank you for this consultation we will follow the patient along with you Dictation was produced using [employer] dictation software. please excuse any grammatical, word or spelling errors. Time with Patient: Greater than 30
[2024-09-15 06:24] LABS: Glucose,Whole Blood 42 mg/dL (70-110)
[2024-09-15 06:45] LABS: Glucose,Whole Blood 44 mg/dL (70-110)
[2024-09-15] MEDS: DEXTROSE 50% SYRINGE 50 ML IVP PRN (06:47)
[2024-09-15] MEDS: PANTOPRAZOLE 40 MG TABLET PO SCH (07:03)
[2024-09-15 07:13] LABS: Glucose,Whole Blood 173 mg/dL (70-110)
[2024-09-15] MEDS: ASPIRIN 81 MG PO SCH (09:09)
[2024-09-15] MEDS: TORSEMIDE 20 MG TAB PO SCH (09:09)
[2024-09-15] MEDS: CLOPIDOGREL 75 MG TAB PO SCH (09:09)
[2024-09-15] MEDS: LEVOTHYROXINE 88 MCG TAB PO SCH (09:09)
[2024-09-15] MEDS: METOPROLOL SUCCINATE (ER) 25 MG TAB.ER.24H PO SCH (09:10)
[2024-09-15 09:20] LABS: Basophils # (A) 0.05 X 10*3/uL (0.00-0.10); Basophils % (A) 0.6 %; Eosinophils # (A) 0.19 X 10*3/uL (0.04-0.35); Eosinophils % (A) 2.3 %; HCT 33.4 % (37.2-46.3); HGB 10.4 g/dL (12.0-15.0); Lymphocytes # (A) 1.66 X 10*3/uL (0.90-5.00); Lymphocytes % (A) 19.7 %; MCH 31.9 pg (27.0-32.0); MCHC 31.1 g/dL (32.0-37.0); MCV 102.5 FL (80.0-97.0); Mean Platelet Volume 10.2 FL (9.5-12.2); Monocytes % (A) 8.3 %; NRBC Per 100 WBC 0 X 10*3/uL (0.00-0.01); Neutrophils # (A) 5.78 X 10*3/uL (1.80-7.70); Neutrophils % (A) 68.7 %; Platelet Count 256 X 10*3/uL (140-440); RBC 3.26 X 10*6/uL (4.10-5.20); RDW 15.9 % (11.5-14.5); WBC 8.41 X 10*3/uL (4.50-10.00)
--- NOTE | 2024-09-15 10:22 | P.PN ---
Subjective Progress Note Date: 09/15/24 Principal diagnosis: UTI The patient has an indwelling Saldaña catheter in place. She is receiving Zosyn. She states that she is feeling better. Objective - Vital Signs Vital signs: Vital Signs Temp 98.2 F 09/15/24 08:07 Pulse 96 09/15/24 08:07 Resp 20 09/15/24 08:07 BP 101/61 09/15/24 08:07 Pulse Ox 99 09/15/24 08:07 FiO2 Intake & Output 09/14/24 09/15/24 09/15/24 18:59 06:59 18:59 Output Total 100 Balance -100 Weight 65.317 kg Output: Urine 100 Other: Voiding Method Indwelling Catheter # Voids 1 - Constitutional General appearance: Present: average body habitus, cooperative, no acute distress - Genitourinary Genitourinary Comment(s): Saldaña catheter is draining clear yellow urine, without any particulate matter. - Psychiatric Psychiatric: Present: A&O x's 3 - Labs CBC & Chem 7: 09/15/24 06:07 09/14/24 05:17 Labs: Abnormal Lab Results - Last 24 Hours (Table) 09/14/24 09/14/24 09/15/24 Range/Units 11:38 20:45 06:07 RBC (4.10-5.20) X 10*6/uL Hgb (12.0-15.0) g/dL Hct (37.2-46.3) % MCV (80.0-97.0) FL MCHC (32.0-37.0) g/dL RDW (11.5-14.5) % POC Glucose (mg/dL) 199 H 329 H (70-110) mg/dL Hemoglobin A1c 8.7 H (<=6.0) % 09/15/24 09/15/24 09/15/24 Range/Units 06:07 06:22 06:43 RBC 3.26 L (4.10-5.20) X 10*6/uL Hgb 10.4 L (12.0-15.0) g/dL Hct 33.4 L (37.2-46.3) % MCV 102.5 H (80.0-97.0) FL MCHC 31.1 L (32.0-37.0) g/dL RDW 15.9 H (11.5-14.5) % POC Glucose (mg/dL) 42 L* 44 L* (70-110) mg/dL Hemoglobin A1c (<=6.0) % 09/15/24 Range/Units 07:11 RBC (4.10-5.20) X 10*6/uL Hgb (12.0-15.0) g/dL Hct (37.2-46.3) % MCV (80.0-97.0) FL MCHC (32.0-37.0) g/dL RDW (11.5-14.5) % POC Glucose (mg/dL) 173 H (70-110) mg/dL Hemoglobin A1c (<=6.0) % Microbiology - Last 24 Hours (Table) 09/13/24 21:57 Urine Culture - Preliminary Urine,Voided Gram Neg Bacilli 09/13/24 22:50 Blood Culture - Preliminary Blood Assessment and Plan Assessment: Preliminary urine culture shows greater than 100,000 gram-negative bacilli. CT scan shows a large amount of air within the urinary bladder, as well as evidence of emphysematous cystitis. Plan: - Continue Zosyn, pending urine culture result - Patient was advised that the findings are strongly suggestive of an enterovesical fistula. She does not recall when her last colonoscopy was done, but she does not wish to undergo a repeat colonoscopy given that she underwent an exploratory laparotomy in the past for a suspected fistula which was not identified. If her urine culture result shows polymicrobia, I will insist she undergo evaluation for a fistula. Conversely, if the culture shows a single organism, she will be treated for that infection and she is agreeable to undergoing cystoscopy once the infection has cleared to determine whether there are findings suggestive of a fistula.
[2024-09-15 11:10] LABS: Blood Urea Nitrogen 38.4 mg/dL (9.0-27.0); Calcium 8.3 mg/dL (8.7-10.3); Carbon Dioxide 23.9 mmol/L (21.6-31.8); Chloride 99 mmol/L (96-109); Glucose 50 mg/dL (70-110); Potassium 4.2 mmol/L (3.5-5.5); Sodium 138 mmol/L (135-145)
[2024-09-15 11:36] LABS: Glucose,Whole Blood 99 mg/dL (70-110)
[2024-09-15] MEDS: INSULIN ASPART (NovoLOG) 100 UNIT/ML VIAL SQ SCH (11:43)
--- NOTE | 2024-09-15 11:51 | P.PN ---
Subjective Progress Note Date: 09/15/24 Patient seen in follow-up for ESRD. Still with suprapubic pain. Saldaña placed by urology yesterday. General: NAD, AAOx3 Cardiovascular: S1S2 reg, no murmur Lungs: CTA bilateral, no rhonchi, no rales , no accessory muscle use Ext: no edema Objective - Vital Signs Vital signs: Vital Signs Temp 98.2 F 09/15/24 08:07 Pulse 96 09/15/24 08:07 Resp 20 09/15/24 08:07 BP 101/61 09/15/24 08:07 Pulse Ox 99 09/15/24 08:07 FiO2 Intake & Output 09/14/24 09/15/24 09/15/24 18:59 06:59 18:59 Output Total 100 Balance -100 Weight 65.317 kg Output: Urine 100 Other: Voiding Method Indwelling Catheter # Voids 1 - Labs CBC & Chem 7: 09/15/24 06:07 09/15/24 06:07 Labs: Abnormal Lab Results - Last 24 Hours (Table) 09/14/24 09/14/24 09/15/24 Range/Units 11:38 20:45 06:07 RBC (4.10-5.20) X 10*6/uL Hgb (12.0-15.0) g/dL Hct (37.2-46.3) % MCV (80.0-97.0) FL MCHC (32.0-37.0) g/dL RDW (11.5-14.5) % POC Glucose (mg/dL) 199 H 329 H (70-110) mg/dL Hemoglobin A1c 8.7 H (<=6.0) % 09/15/24 09/15/24 09/15/24 Range/Units 06:07 06:22 06:43 RBC 3.26 L (4.10-5.20) X 10*6/uL Hgb 10.4 L (12.0-15.0) g/dL Hct 33.4 L (37.2-46.3) % MCV 102.5 H (80.0-97.0) FL MCHC 31.1 L (32.0-37.0) g/dL RDW 15.9 H (11.5-14.5) % POC Glucose (mg/dL) 42 L* 44 L* (70-110) mg/dL Hemoglobin A1c (<=6.0) % 09/15/24 Range/Units 07:11 RBC (4.10-5.20) X 10*6/uL Hgb (12.0-15.0) g/dL Hct (37.2-46.3) % MCV (80.0-97.0) FL MCHC (32.0-37.0) g/dL RDW (11.5-14.5) % POC Glucose (mg/dL) 173 H (70-110) mg/dL Hemoglobin A1c (<=6.0) % Microbiology - Last 24 Hours (Table) 09/13/24 21:57 Urine Culture - Preliminary Urine,Voided Gram Neg Bacilli 09/13/24 22:50 Blood Culture - Preliminary Blood Assessment and Plan Assessment: 1. ESRD on HD MWF, last treatment Monday 2. Abdominal Pain possibly related to UTI. CT howed emphysematous cystitis. 3. UTI, cultures pending. 4. Anemia with KCD 5. HTN with CKD 6. MBD with KCD 7. Hyponatremia related to HD. Plan: Urology following for emphysematous cystitis Saldaña catheter placed per urology Maintain HD MWF schedule ABX per primary
--- NOTE | 2024-09-15 12:14 | P.PN ---
Subjective Progress Note Date: 09/15/24 59-year-old female with PMH of CAD with ischemic cardiomyopathy with EF of 15 to 20%, COPD, ESRD on dialysis MWF via R chest catheter, diabetes mellitus, fibromyalgia, GERD, hyperlipidemia, hypertension, and osteoarthritis presented to the emergency department with suprapubic pain and hematuria. In the ED she underwent extensive evaluation. BP 130/75, HR 80, RR 22, T 97.7F, 98% on 3L NC. CBC, CMP significant for MCV 104.7, Na 130, Cl 94, BUN 19, Cr 1.6, glu 263, AST 46, alk phos 196. Lipase 21. Lactic acid 1.7. CT AP showed emphysematous cystitis with findings concerning for microperforation and surrounding small foci of pneumoperitoneum. UA showed 3+ protein, 3+ glucose, trace ketones, large blood, negative for nitrites, large leukocyte esterase, 87 RBC, WBC > 182. Patient was started on Unasyn and admitted for further workup and management. Urology consulted, she will require a formal evaluation to rule out an enterovesical fistula. ID consulted, antibiotics switched to Zosyn. Nephrology c onsulted to maintain HD on MWF schedule. 09/15 Patient was seen and examined. UCx GNB. Maintained on Zosyn. She was hypoglycemic overnight with BG as low as 42 which improved with D50. CBC and BMP significant for RBC 3.26, Hg 10.4, Hct 33.4, MCV 102.5, AG 15.1, BUN 38.4, Cr 4, glu 50, Ca 8.3. A1c 8.7. General: non toxic, no distress, appears at stated age Derm: warm, dry Head: atraumatic, normocephalic, symmetric Eyes: EOMI, no lid lag, anicteric sclera Mouth: no lip lesion, mucus membranes moist Cardiovascular: S1S2 reg, no murmur Lungs: Clear to auscultation bilateral, no rhonchi, no rales, no accessory muscle use Ext: no gross muscle atrophy, no edema, no contractures Neuro: no focal neuro deficits Psych: Alert, oriented, appropriate affect Based on my assessment of this patient, this patient meets a high complexity level of care. Emphysematous cystitis with microperforations: Per Urology she will require a formal evaluation to rule out an enterovesical fistula. Continue Zosyn 3.75g IV TID (D2). Follow UCx, BCx. ID and Urology on board. DM with hypoglycemia: DC Levemir and scheduled Novolog. Continue ISS. Accuchecks ACHS. Hypoglycemic precautions. ESRD on HD MWF: Nephrology on board to resume HD. CHF with EF of 15 to 20%: Not in acute exacerbation. Metoprolol 25 mg PO QD. Entresto 1 tab PO BID. Torsemide 40 mg PO QD. Would benefit from Aldactone and AICD. Telemetry monitoring. Follow up with Cardiology in the outpatient setting. CAD: ASA 81 mg PO QD. Lipitor 40 mg PO QHS. Plavix 75 mg PO QD. COPD: Not in acute exacerbation. DuoNeb QID PRN for SOB/wheezing. GERD: Protonix 40 mg PO QD. Hypothyroid: Synthroid 176 mg PO QD. Hyperlipidemia: Lipitor as above. Hypertension: Metoprolol, Torsemide and Entresto as above. CODE STATUS: FULL CODE DVT Prophylaxis: Heparin SQ GI Prophylaxis: Protonix Designated medical POA if patient is not able to make medical decisions for themselves: I have reviewed the following claims consultant notes: Urology, ID, Nephrology note. I have reviewed the results of the following tests: CBC, BMP. I have ordered the following tests: CBC and BMP in the AM. I have discussed the care of this patient with the following independent historian: I have independently interpreted the following test below: I have discussed the management of this patient with the following physician: Objective - Vital Signs Vital signs: Vital Signs Temp 98.9 F 09/15/24 02:14 Pulse 85 09/15/24 02:14 Resp 16 09/15/24 02:14 BP 102/51 09/15/24 02:14 Pulse Ox 92 L 09/15/24 02:14 FiO2 Intake & Output 09/14/24 09/15/24 09/15/24 18:59 06:59 18:59 Output Total 100 Balance -100 Weight 65.317 kg Output: Urine 100 Other: Voiding Method Indwelling Catheter # Voids 1 - Labs CBC & Chem 7: 09/15/24 06:07 09/15/24 06:07 Labs: Abnormal Lab Results - Last 24 Hours (Table) 09/14/24 09/14/24 09/15/24 Range/Units 11:38 20:45 06:22 POC Glucose (mg/dL) 199 H 329 H 42 L* (70-110) mg/dL 09/15/24 09/15/24 Range/Units 06:43 07:11 POC Glucose (mg/dL) 44 L* 173 H (70-110) mg/dL Microbiology - Last 24 Hours (Table) 09/13/24 21:57 Urine Culture - Preliminary Urine,Voided Gram Neg Bacilli 09/13/24 22:50 Blood Culture - Preliminary Blood
[2024-09-15 16:52] LABS: Glucose,Whole Blood 343 mg/dL (70-110)
[2024-09-15] MEDS: ONDANSETRON 4 MG/2 ML VIAL IVP PRN (17:09)
[2024-09-15 21:30] LABS: Glucose,Whole Blood 268 mg/dL (70-110)
[2024-09-15] MEDS: PIPERACILLIN-TAZOBACTAM 3.375 GM in SODIUM CHLORIDE 0.9% 100 ML IVPB SCH (23:07)
[2024-09-16 01:31] LABS: Glucose,Whole Blood 195 mg/dL (70-110)
[2024-09-16 06:17] LABS: Glucose,Whole Blood 388 mg/dL (70-110)
[2024-09-16] MEDS ORDERED: INSULIN DETEMIR (LEVEMIR) 100 UNIT/ML SYR SQ SCH (07:00)
--- NOTE | 2024-09-16 08:47 | P.PN ---
Subjective Progress Note Date: 09/15/24 Principal diagnosis: Reason for follow-up is emphysematous cystitis Patient is a 59-year-old female with a past medical history significant for coronary artery disease CVA TIA diabetes mellitus fibromyalgia hypertension hyperlipidemia patient did have a history of end-stage renal disease on hemodialysis since March 2024 through the right subclavian permacatheter, patient still makes urine presenting to the hospital with acute onset of lower abdominal pain apparently has some blood in the urine CT was suggestive of emphysematous cystitis and possible microperforation prompted this consultation. On today's evaluation that is 09/15/2024, Patient is afebrile patient is currently on 2 L current oxygen and denies having any shortness of breath, the patient denies any chest pain or cough, the patient denies any nausea vomiting abdominal pain slightly decreased in intensity. Patient white count is 8.41 creatinine 4.0 urine is growing gram-negative Objective - Vital Signs Vital signs: Vital Signs Temp 98.2 F 09/15/24 08:07 Pulse 96 09/15/24 08:07 Resp 20 09/15/24 08:07 BP 101/61 09/15/24 08:07 Pulse Ox 99 09/15/24 08:07 FiO2 Intake & Output 09/14/24 09/15/24 09/15/24 18:59 06:59 18:59 Output Total 100 Balance -100 Weight 65.317 kg Output: Urine 100 Other: Voiding Method Indwelling Catheter # Voids 1 - Exam GENERAL DESCRIPTION: Middle-age female up in bed in no distress RESPIRATORY SYSTEM: Unlabored breathing , decreased breath sounds at bases HEART: S1 S2 regular rate and rhythm , ABDOMEN: Soft , no tenderness EXTREMITIES: No edema feet - Labs CBC & Chem 7: 09/15/24 06:07 09/15/24 06:07 Labs: Abnormal Lab Results - Last 24 Hours (Table) 09/14/24 09/14/24 09/15/24 Range/Units 11:38 20:45 06:07 RBC (4.10-5.20) X 10*6/uL Hgb (12.0-15.0) g/dL Hct (37.2-46.3) % MCV (80.0-97.0) FL MCHC (32.0-37.0) g/dL RDW (11.5-14.5) % POC Glucose (mg/dL) 199 H 329 H (70-110) mg/dL Hemoglobin A1c 8.7 H (<=6.0) % 09/15/24 09/15/24 09/15/24 Range/Units 06:07 06:22 06:43 RBC 3.26 L (4.10-5.20) X 10*6/uL Hgb 10.4 L (12.0-15.0) g/dL Hct 33.4 L (37.2-46.3) % MCV 102.5 H (80.0-97.0) FL MCHC 31.1 L (32.0-37.0) g/dL RDW 15.9 H (11.5-14.5) % POC Glucose (mg/dL) 42 L* 44 L* (70-110) mg/dL Hemoglobin A1c (<=6.0) % 09/15/24 Range/Units 07:11 RBC (4.10-5.20) X 10*6/uL Hgb (12.0-15.0) g/dL Hct (37.2-46.3) % MCV (80.0-97.0) FL MCHC (32.0-37.0) g/dL RDW (11.5-14.5) % POC Glucose (mg/dL) 173 H (70-110) mg/dL Hemoglobin A1c (<=6.0) % Microbiology - Last 24 Hours (Table) 09/13/24 21:57 Urine Culture - Preliminary Urine,Voided Gram Neg Bacilli 09/13/24 22:50 Blood Culture - Preliminary Blood Assessment and Plan (1) Emphysematous cystitis Current Visit: Yes Status: Acute Code(s): N30.80 - OTHER CYSTITIS WITHOUT HEMATURIA SNOMED Code(s): 64683951 Plan: 1patient presented to hospital with acute abdominal pain which has been mostly suprapubic area patient makes small amount of urine and noticed to have some blood with significant abnormality seen on the CT concerning for emphysematous cystitis and possible microperforation versus fistula. 2patient will be treated with Zosyn to cover for more resistant pathogen while waiting for the culture to finalize Dictation was produced using [employer] software. please excuse any grammatical, word or spelling errors. Time with Patient: Less than 30
[2024-09-16 08:51] LABS: Blood Urea Nitrogen 45.1 mg/dL (9.0-27.0); Calcium 8.6 mg/dL (8.7-10.3); Carbon Dioxide 21.8 mmol/L (21.6-31.8); Chloride 94 mmol/L (96-109); Glucose 245 mg/dL (70-110); Potassium 4.4 mmol/L (3.5-5.5); Sodium 133 mmol/L (135-145)
[2024-09-16 08:55] LABS: Basophils # (A) 0.03 X 10*3/uL (0.00-0.10); Basophils % (A) 0.4 %; Eosinophils # (A) 0.34 X 10*3/uL (0.04-0.35); HCT 37.9 % (37.2-46.3); HGB 11.4 g/dL (12.0-15.0); Lymphocytes # (A) 1.32 X 10*3/uL (0.90-5.00); Lymphocytes % (A) 19.3 %; MCH 32.1 pg (27.0-32.0); MCHC 30.1 g/dL (32.0-37.0); MCV 106.8 FL (80.0-97.0); Mean Platelet Volume 10.7 FL (9.5-12.2); Monocytes % (A) 8.8 %; NRBC Per 100 WBC 0 X 10*3/uL (0.00-0.01); Neutrophils # (A) 4.51 X 10*3/uL (1.80-7.70); Neutrophils % (A) 66.1 %; Platelet Count 209 X 10*3/uL (140-440); RBC 3.55 X 10*6/uL (4.10-5.20); WBC 6.83 X 10*3/uL (4.50-10.00)
[2024-09-16 09:02] LABS: Glucose,Whole Blood 464 mg/dL (70-110)
[2024-09-16] MEDS: ERTAPENEM 0.5 GM in SODIUM CHLORIDE 0.9% 50 ML IVPB SCH (09:06)
[2024-09-16 11:37] LABS: Glucose,Whole Blood 387 mg/dL (70-110)
--- NOTE | 2024-09-16 12:36 | P.PN ---
Subjective Progress Note Date: 09/16/24 Principal diagnosis: Reason for follow-up is emphysematous cystitis Patient is a 59-year-old female with a past medical history significant for coronary artery disease CVA TIA diabetes mellitus fibromyalgia hypertension hyperlipidemia patient did have a history of end-stage renal disease on hemodialysis since March 2024 through the right subclavian permacatheter, patient still makes urine presenting to the hospital with acute onset of lower abdominal pain apparently has some blood in the urine CT was suggestive of emphysematous cystitis and possible microperforation prompted this consultation. On today's evaluation that is 09/16/2024, patient has been afebrile, patient is breathing comfortably and is currently on 2 L nasal cannula oxygen, patient denies having any significant cough no chest pain, patient denies nausea vomiting or diarrhea still complaining of lower abdominal pain some relief with the pain medication. Patient white count 6.83, creatinine is 4.8 urine with ESBL E. coli blood culture negative so far Objective - Vital Signs Vital signs: Vital Signs Temp 98.0 F 09/16/24 06:56 Pulse 69 09/16/24 06:56 Resp 17 09/16/24 06:56 BP 124/73 09/16/24 06:56 Pulse Ox 93 L 09/16/24 06:56 FiO2 Intake & Output 09/15/24 09/16/24 09/16/24 18:59 06:59 18:59 Intake Total 1857 Output Total 100 Balance -100 1857 Intake: Oral 1857 Output: Urine 100 Other: Voiding Method Indwelling Catheter Indwelling Catheter Indwelling Catheter # Voids 450 # Bowel Movements 4 - Exam GENERAL DESCRIPTION: Middle-age female up in bed in no distress RESPIRATORY SYSTEM: Unlabored breathing , decreased breath sounds at bases HEART: S1 S2 regular rate and rhythm , ABDOMEN: Soft , no tenderness EXTREMITIES: No edema feet - Labs CBC & Chem 7: 09/16/24 03:17 09/16/24 03:17 Labs: Abnormal Lab Results - Last 24 Hours (Table) 09/14/24 09/15/24 09/15/24 Range/Units 08:52 16:51 21:29 RBC (4.10-5.20) X 10*6/uL Hgb (12.0-15.0) g/dL MCV (80.0-97.0) FL MCH (27.0-32.0) pg MCHC (32.0-37.0) g/dL RDW (11.5-14.5) % Sodium (135-145) mmol/L Chloride (96-109) mmol/L Anion Gap (4.00-12.00) mmol/L BUN (9.0-27.0) mg/dL Creatinine (0.6-1.5) mg/dL Est GFR (CKD-EPI) (>=60) BUN/Creatinine Ratio (12.00-20.00) Ratio Glucose (70-110) mg/dL POC Glucose (mg/dL) 464 H 343 H 268 H (70-110) mg/dL Calcium (8.7-10.3) mg/dL 09/16/24 09/16/24 09/16/24 Range/Units 01:30 03:17 03:17 RBC 3.55 L (4.10-5.20) X 10*6/uL Hgb 11.4 L (12.0-15.0) g/dL MCV 106.8 H (80.0-97.0) FL MCH 32.1 H (27.0-32.0) pg MCHC 30.1 L (32.0-37.0) g/dL RDW 16.0 H (11.5-14.5) % Sodium 133 L (135-145) mmol/L Chloride 94 L (96-109) mmol/L Anion Gap 17.20 H (4.00-12.00) mmol/L BUN 45.1 H (9.0-27.0) mg/dL Creatinine 4.8 H (0.6-1.5) mg/dL Est GFR (CKD-EPI) 10 L (>=60) BUN/Creatinine Ratio 9.40 L (12.00-20.00) Ratio Glucose 245 H (70-110) mg/dL POC Glucose (mg/dL) 195 H (70-110) mg/dL Calcium 8.6 L (8.7-10.3) mg/dL 24 09/16/24 Range/Units 06:16 11:36 RBC (4.10-5.20) X 10*6/uL Hgb (12.0-15.0) g/dL MCV (80.0-97.0) FL MCH (27.0-32.0) pg MCHC (32.0-37.0) g/dL RDW (11.5-14.5) % Sodium (135-145) mmol/L Chloride (96-109) mmol/L Anion Gap (4.00-12.00) mmol/L BUN (9.0-27.0) mg/dL Creatinine (0.6-1.5) mg/dL Est GFR (CKD-EPI) (>=60) BUN/Creatinine Ratio (12.00-20.00) Ratio Glucose (70-110) mg/dL POC Glucose (mg/dL) 388 H 387 H (70-110) mg/dL Calcium (8.7-10.3) mg/dL Microbiology - Last 24 Hours (Table) 09/13/24 21:57 Urine Culture - Final Urine,Voided Escherichia coli 09/13/24 22:50 Blood Culture - Preliminary Blood Assessment and Plan (1) Emphysematous cystitis Current Visit: Yes Status: Acute Code(s): N30.80 - OTHER CYSTITIS WITHOUT HEMATURIA SNOMED Code(s): 16236081 (2) Infection due to ESBL-producing Escherichia coli Current Visit: Yes Status: Acute Code(s): A49.8 - OTHER BACTERIAL INFECTIONS OF UNSPECIFIED SITE; Z16.12 - EXTENDED SPECTRUM BETA LACTAMASE (ESBL) RESISTANCE SNOMED Code(s): 241489118 Plan: 1patient presented to hospital with acute abdominal pain which has been mostly suprapubic area patient makes small amount of urine and noticed to have some blood with significant abnormality seen on the CT concerning for emphysematous cystitis and possible microperforation versus fistula. 2patient urine has been finalized with ESBL E. coli blood culture have been negative so far 3Zosyn has been discontinued patient started on ertapenem 500 mg daily dose adjusted to the kidney function Dictation was produced using [employer] dictation software. please excuse any grammatical, word or spelling errors.
--- NOTE | 2024-09-16 13:31 | P.PN ---
Subjective Progress Note Date: 09/16/24 Patient is a 59-year-old female with past medical history of coronary artery disease with ischemic cardiomyopathy(underwent CABG X 4 in 2019) with left ventricular ejection fraction of 15 to 20%, COPD, ESRD on dialysis MWF via R chest catheter, diabetes mellitus, fibromyalgia, GERD, hyperlipidemia, hyperte nsion, and osteoarthritis presented to the emergency department with abdominal pain. Patient reported that this morning when she was using bathroom she felt pressure in the suprapubic region. Patient reported that she received dialysis earlier today and when she got home she started having intense suprapubic pressure. She also noticed some blood in her urine but states that has been a problem for quite some time. She characterizes the pain as a pressure-like sensation that comes and goes with 9 out of 10 intensity. She stated that she feels like she has to urinate but she cannot and there is also pain and burning when she tries to urinate. She also saw some blood when she wiped today and yesterday. Patient reports chills, nausea, dysuria. Denies chest pain, shortness of breath, fever, and abdominal pain, vomiting, diarrhea, constipation. Abdomen/pelvis CT shows emphysematous cystitis with findings concerning for microperforation and surrounding small foci of pneumoperitoneum. Evaluation for a fistulization is limited on the study with lack of oral or rectal contrast. Also showed nonspecific hepatomegaly. And scattered patchy attenuation and in the right lung may related to an acute infectious/inflammatory process. Bilateral pleural effusions and diffuse anasarca is concerning for third spacing versus volume overload. Labs on admission show WBC 9.8, hemoglobin 12.3, hematocrit 40, platelet 280, MCV 104.7, sodium 130, potassium 4.5, chloride 94, carbon dioxide 27, BUN 19, creatinine 1.6, glucose 263, lactic acid 1.7, AST 46, ALT 23, alkaline phosphatase 196, lipase 21 UA shows 3+ protein, 3+ glucose, trace ketones, large blood, negative for nitrites, large leukocyte esterase, 87 RBC, WBC of greater than 182 12/8 Patient was seen and examined. UCx GNB. Maintained on Zosyn. She was hypoglycemic overnight with BG as low as 42 which improved with D50. CBC and BMP significant for RBC 3.26, Hg 10.4, Hct 33.4, MCV 102.5, AG 15.1, BUN 38.4, Cr 4, glu 50, Ca 8.3. A1c 8.7. 09/16/2024 patient seen and examined at bedside. Patient reported her suprapubic pain is improved. No new complaints overnight. Sodium decreased at 133 glucose elevated at 245 calcium decreased at 8.6 WBC 6.83 Review of systems: Pertinent positives and negatives as discussed in HPI, a complete review of systems was performed and all other systems are negative. Pertinent imaging and labs reviewed. Physical examination: Vital signs reviewed General: non toxic, no distress, on 2 L nasal cannula Derm: no unusual rashes/lesions, warm Head: atraumatic, normocephalic, symmetric Eyes: EOMI, anicteric sclera, pupils equal round reactive to light ENT: Nose and ears atraumatic Neck: No cervical lymphadenopathy, trachea midline, supple Mouth: no lip lesion, mucus membranes moist Cardiovascular: S1S2 reg, no murmur Lungs: CTA bilateral, no rhonchi, no rales, no accessory muscle use Abdominal: soft, nontender to palpation, no guarding, suprapubic pain on light palpation Ext: muscle strength 5 out of 5 in all 4 extremities grossly, no gross muscle atrophy, no contractures, positive dorsalis pedis pulse bilateral, no edema Neuro: CN II-XI grossly intact, no gross focal neuro deficits Psych: Alert and oriented x3, appropriate affect and mood Assessment/Plan: Patient is a 59-year-old female with past medical history of coronary artery disease, heart failure, COPD, CKD on dialysis, diabetes mellitus, fibromyalgia, GERD, hyperlipidemia, hypertension, and osteoarthritis presented to the emergency department with abdominal pain. Patient is admitted to inpatient medicine service and will be closely monitored. Active: #. Emphysematous cystitis with microperforations #. Hematuria likely due to above Abdomen/pelvis CT showed emphysematous cystitis with findings concerning for microperforation and surrounding small foci of pneumoperitoneum. Unasyn q6h IV discontinued on 09/14. Zosyn IVPB discontinued on 09/16. Urine culture shows ESBL Blood cultures pending ID consulted. Continue with ertapenem 0.5 g IVPB daily Urology consulted. For formal evaluation to rule out enterovesicular fistula #. Insulin-dependent diabetes mellitus #. Hyperglycemia Has home 10 to 12 units of Lantus SQ daily and NovoLog sliding scale Glucose today at 245 Insulin NovoLog low-dose sliding scale ACHS Levemir 10 units q. nightly Glucose Accu-Cheks ACHS. Monitor for hypoglycemia #. Hypovolemic hyponatremia Sodium 133 today. Patient has no new symptoms and is hemodynamically stable Morning BMP #. End-stage renal disease on hemodialysis Nephrology consulted Monday dialysis schedule #. Anemia of chronic disease Montior CBC Chronic: #. Hyperlipidemia #. Hypothyroid #. GERD #. CAD #. COPD not in acute exacerbation #. Congestive heart failure with left ventricular ejection fraction of 15 to 20% on echo 08/28/2024 Resume ASA 81 mg PO QD. Lipitor 40 mg PO QHS. Plavix 75 mg PO QD. Metoprolol 25 mg PO QD. Entresto 1 tab PO BID. Torsemide 40 mg PO QD. Would benefit from Aldactone and AICD Cardiac monitoring Monitor for fluid overload F: Oral intake E: Replete as needed N: Renal diet A: Ambulatory DVT prophylaxis: Heparin subq GI Prophylaxis: Protonix Mandypapa Anne MD PGY-1/Can [employer] Operator Dictation was produced using [employer] dictation software. please excuse any grammatical, word or spelling errors. I saw and evaluated the patient during the tate and critical portions of this encounter, and discussed the case in detail with the resident author of this n ote, I agree with the Assessment and Plan, and my changes, if any, are noted below. Patient feeling better. UCx growing ESBL. Zosyn switched to Ertapenem by ID. Per Urology, she will require a formal evaluation to rule out an enterovesical fistula. Patient hesitant regarding C-scope. Only one organism isolated from UCx, possible cystoscopy. Objective - Vital Signs Vital signs: Vital Signs Temp 98.0 F 09/16/24 06:56 Pulse 69 09/16/24 06:56 Resp 17 09/16/24 06:56 BP 124/73 09/16/24 06:56 Pulse Ox 93 L 09/16/24 06:56 FiO2 Intake & Output 09/15/24 09/16/24 09/16/24 18:59 06:59 18:59 Intake Total 1857 Output Total 100 Balance -100 1857 Intake: Oral 1857 Output: Urine 100 Other: Voiding Method Indwelling Catheter Indwelling Catheter # Voids 450 # Bowel Movements 4 - Labs CBC & Chem 7: 09/16/24 03:17 09/16/24 03:17 Labs: Abnormal Lab Results - Last 24 Hours (Table) 09/14/24 09/15/24 09/15/24 Range/Units 08:52 06:07 16:51 RBC (4.10-5.20) X 10*6/uL Hgb (12.0-15.0) g/dL MCV (80.0-97.0) FL MCH (27.0-32.0) pg MCHC (32.0-37.0) g/dL RDW (11.5-14.5) % Sodium (135-145) mmol/L Chloride (96-109) mmol/L Anion Gap 15.10 H (4.00-12.00) mmol/L BUN 38.4 H (9.0-27.0) mg/dL Creatinine 4.0 H (0.6-1.5) mg/dL Est GFR (CKD-EPI) 12 L (>=60) BUN/Creatinine Ratio 9.60 L (12.00-20.00) Ratio Glucose 50 L (70-110) mg/dL POC Glucose (mg/dL) 464 H 343 H (70-110) mg/dL Calcium 8.3 L (8.7-10.3) mg/dL 09/15/24 09/16/24 09/16/24 Range/Units 21:29 01:30 03:17 RBC (4.10-5.20) X 10*6/uL Hgb (12.0-15.0) g/dL MCV (80.0-97.0) FL MCH (27.0-32.0) pg MCHC (32.0-37.0) g/dL RDW (11.5-14.5) % Sodium 133 L (135-145) mmol/L Chloride 94 L (96-109) mmol/L Anion Gap 17.20 H (4.00-12.00) mmol/L BUN 45.1 H (9.0-27.0) mg/dL Creatinine 4.8 H (0.6-1.5) mg/dL Est GFR (CKD-EPI) 10 L (>=60) BUN/Creatinine Ratio 9.40 L (12.00-20.00) Ratio Glucose 245 H (70-110) mg/dL POC Glucose (mg/dL) 268 H 195 H (70-110) mg/dL Calcium 8.6 L (8.7-10.3) mg/dL 09/16/24 09/16/24 Range/Units 03:17 06:16 RBC 3.55 L (4.10-5.20) X 10*6/uL Hgb 11.4 L (12.0-15.0) g/dL MCV 106.8 H (80.0-97.0) FL MCH 32.1 H (27.0-32.0) pg MCHC 30.1 L (32.0-37.0) g/dL RDW 16.0 H (11.5-14.5) % Sodium (135-145) mmol/L Chloride (96-109) mmol/L Anion Gap (4.00-12.00) mmol/L BUN (9.0-27.0) mg/dL Creatinine (0.6-1.5) mg/dL Est GFR (CKD-EPI) (>=60) BUN/Creatinine Ratio (12.00-20.00) Ratio Glucose (70-110) mg/dL POC Glucose (mg/dL) 388 H (70-110) mg/dL Calcium (8.7-10.3) mg/dL Microbiology - Last 24 Hours (Table) 09/13/24 21:57 Urine Culture - Final Urine,Voided Escherichia coli 09/13/24 22:50 Blood Culture - Preliminary Blood
[2024-09-16 17:06] LABS: Glucose,Whole Blood 236 mg/dL (70-110)
[2024-09-16] MEDS: diphenhydrAMINE 25 MG CAP PO PRN (17:30)
--- NOTE | 2024-09-16 18:26 | P.PN ---
Subjective Patient is seen for follow-up for end-stage disease. Scheduled for hemodialysis today. No significant complaints today. Objective - Vital Signs Vital signs: Vital Signs Temp 97.9 F 09/16/24 14:23 Pulse 69 09/16/24 17:39 Resp 20 09/16/24 17:39 BP 118/60 09/16/24 17:39 Pulse Ox 96 09/16/24 14:23 FiO2 Intake & Output 09/15/24 09/16/24 09/16/24 18:59 06:59 18:59 Intake Total 1857 400 Output Total 100 5800 Balance -100 1857 -5400 Intake: Oral 1857 Hemodialysis 400 Output: Urine 100 Hemodialysis 3100 Hemodialysis Net Amount 2700 Other: Voiding Method Indwelling Catheter Indwelling Catheter Indwelling Catheter # Voids 450 # Bowel Movements 4 1 - Exam Patient is awake, comfortable, no acute distress. 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 - Labs CBC & Chem 7: 09/16/24 03:17 09/16/24 03:17 Labs: Abnormal Lab Results - Last 24 Hours (Table) 09/14/24 09/15/24 09/16/24 Range/Units 08:52 21:29 01:30 RBC (4.10-5.20) X 10*6/uL Hgb (12.0-15.0) g/dL MCV (80.0-97.0) FL MCH (27.0-32.0) pg MCHC (32.0-37.0) g/dL RDW (11.5-14.5) % Sodium (135-145) mmol/L Chloride (96-109) mmol/L Anion Gap (4.00-12.00) mmol/L BUN (9.0-27.0) mg/dL Creatinine (0.6-1.5) mg/dL Est GFR (CKD-EPI) (>=60) BUN/Creatinine Ratio (12.00-20.00) Ratio Glucose (70-110) mg/dL POC Glucose (mg/dL) 464 H 268 H 195 H (70-110) mg/dL Calcium (8.7-10.3) mg/dL 09/16/24 09/16/24 09/16/24 Range/Units 03:17 03:17 06:16 RBC 3.55 L (4.10-5.20) X 10*6/uL Hgb 11.4 L (12.0-15.0) g/dL MCV 106.8 H (80.0-97.0) FL MCH 32.1 H (27.0-32.0) pg MCHC 30.1 L (32.0-37.0) g/dL RDW 16.0 H (11.5-14.5) % Sodium 133 L (135-145) mmol/L Chloride 94 L (96-109) mmol/L Anion Gap 17.20 H (4.00-12.00) mmol/L BUN 45.1 H (9.0-27.0) mg/dL Creatinine 4.8 H (0.6-1.5) mg/dL Est GFR (CKD-EPI) 10 L (>=60) BUN/Creatinine Ratio 9.40 L (12.00-20.00) Ratio Glucose 245 H (70-110) mg/dL POC Glucose (mg/dL) 388 H (70-110) mg/dL Calcium 8.6 L (8.7-10.3) mg/dL 09/16/24 09/16/24 Range/Units 11:36 17:05 RBC (4.10-5.20) X 10*6/uL Hgb (12.0-15.0) g/dL MCV (80.0-97.0) FL MCH (27.0-32.0) pg MCHC (32.0-37.0) g/dL RDW (11.5-14.5) % Sodium (135-145) mmol/L Chloride (96-109) mmol/L Anion Gap (4.00-12.00) mmol/L BUN (9.0-27.0) mg/dL Creatinine (0.6-1.5) mg/dL Est GFR (CKD-EPI) (>=60) BUN/Creatinine Ratio (12.00-20.00) Ratio Glucose (70-110) mg/dL POC Glucose (mg/dL) 387 H 236 H (70-110) mg/dL Calcium (8.7-10.3) mg/dL Microbiology - Last 24 Hours (Table) 09/13/24 21:57 Urine Culture - Final Urine,Voided Escherichia coli 09/13/24 22:50 Blood Culture - Preliminary Blood Assessment and Plan Assessment: 1. ESRD on HD MWF, last treatment Monday 2. Abdominal Pain possibly related to UTI. CT howed emphysematous cystitis. 3. UTI, cultures grew E. coli 4. Anemia with chronic kidney disease 5. HTN with CKD 6. CKD mineral bone disorder Plan: Hemodialysis today Continue with antibiotics.
[2024-09-16] MEDS: METOCLOPRAMIDE 5 MG/ML 2 ML VIAL IVP STA ×2 (20:48→22:43)
[2024-09-16 20:53] LABS: Glucose,Whole Blood 418 mg/dL (70-110)
[2024-09-16] MEDS: INSULIN DETEMIR (LEVEMIR) 100 UNIT/ML SYR SQ SCH (21:06)
[2024-09-17 02:32] LABS: Glucose,Whole Blood 227 mg/dL (70-110)
[2024-09-17 07:08] LABS: Glucose,Whole Blood 41 mg/dL (70-110)
[2024-09-17 07:57] LABS: Glucose,Whole Blood 92 mg/dL (70-110)
[2024-09-17 08:52] LABS: BUN/Creat Ratio 6.84 Ratio (12.00-20.00); Blood Urea Nitrogen 21.2 mg/dL (9.0-27.0); Calcium 8.1 mg/dL (8.7-10.3); Carbon Dioxide 22.4 mmol/L (21.6-31.8); Chloride 97 mmol/L (96-109); Glucose 156 mg/dL (70-110); Potassium 3.7 mmol/L (3.5-5.5); Sodium 134 mmol/L (135-145)
[2024-09-17 08:55] LABS: Basophils # (A) 0.05 X 10*3/uL (0.00-0.10); Basophils % (A) 0.7 %; Eosinophils % (A) 2.8 %; HCT 36.1 % (37.2-46.3); HGB 11.3 g/dL (12.0-15.0); Lymphocytes # (A) 1.39 X 10*3/uL (0.90-5.00); Lymphocytes % (A) 19.7 %; MCH 31.9 pg (27.0-32.0); MCHC 31.3 g/dL (32.0-37.0); Mean Platelet Volume 10.3 FL (9.5-12.2); Monocytes # (A) 0.59 X 10*3/uL (0.20-1.00); Monocytes % (A) 8.4 %; NRBC Per 100 WBC 0 X 10*3/uL (0.00-0.01); Neutrophils # (A) 4.79 X 10*3/uL (1.80-7.70); Neutrophils % (A) 68.1 %; Platelet Count 204 X 10*3/uL (140-440); RBC 3.54 X 10*6/uL (4.10-5.20); RDW 15.9 % (11.5-14.5); WBC 7.04 X 10*3/uL (4.50-10.00)
[2024-09-17 11:06] LABS: Glucose,Whole Blood 227 mg/dL (70-110)
--- NOTE | 2024-09-17 12:50 | P.PN ---
Subjective Progress Note Date: 09/17/24 Patient is a 59-year-old female with past medical history of coronary artery disease with ischemic cardiomyopathy(underwent CABG X 4 in 2019) with left ventricular ejection fraction of 15 to 20%, COPD, ESRD on dialysis MWF via R chest catheter, diabetes mellitus, fibromyalgia, GERD, hyperlipidemia, hyperte nsion, and osteoarthritis presented to the emergency department with abdominal pain. Patient reported that this morning when she was using bathroom she felt pressure in the suprapubic region. Patient reported that she received dialysis earlier today and when she got home she started having intense suprapubic pressure. She also noticed some blood in her urine but states that has been a problem for quite some time. She characterizes the pain as a pressure-like sensation that comes and goes with 9 out of 10 intensity. She stated that she feels like she has to urinate but she cannot and there is also pain and burning when she tries to urinate. She also saw some blood when she wiped today and yesterday. Patient reports chills, nausea, dysuria. Denies chest pain, shortness of breath, fever, and abdominal pain, vomiting, diarrhea, constipation. Abdomen/pelvis CT shows emphysematous cystitis with findings concerning for microperforation and surrounding small foci of pneumoperitoneum. Evaluation for a fistulization is limited on the study with lack of oral or rectal contrast. Also showed nonspecific hepatomegaly. And scattered patchy attenuation and in the right lung may related to an acute infectious/inflammatory process. Bilateral pleural effusions and diffuse anasarca is concerning for third spacing versus volume overload. Labs on admission show WBC 9.8, hemoglobin 12.3, hematocrit 40, platelet 280, MCV 104.7, sodium 130, potassium 4.5, chloride 94, carbon dioxide 27, BUN 19, creatinine 1.6, glucose 263, lactic acid 1.7, AST 46, ALT 23, alkaline phosphatase 196, lipase 21 UA shows 3+ protein, 3+ glucose, trace ketones, large blood, negative for nitrites, large leukocyte esterase, 87 RBC, WBC of greater than 182 09/15 Patient was seen and examined. UCx GNB. Maintained on Zosyn. She was hypoglycemic overnight with BG as low as 42 which improved with D50. CBC and BMP significant for RBC 3.26, Hg 10.4, Hct 33.4, MCV 102.5, AG 15.1, BUN 38.4, Cr 4, glu 50, Ca 8.3. A1c 8.7. 09/16/2024 patient seen and examined at bedside. Patient reported her suprapubic pain is improved. No new complaints overnight. Sodium decreased at 133 glucose elevated at 245 calcium decreased at 8.6 WBC 6.83 09/17/2024 patient seen and examined at bedside. No new complaints overnight. Overnight, patient had episode of hypoglycemia where POC glucose was 41. WBC 7. 04 hemoglobin 11.13 platelet count 204,000 sodium 134 potassium 3.7 chloride 97 bicarb 22.4 BUN 21.2 creatinine 3.1 glucose 156 calcium 8.1 Review of systems: Pertinent positives and negatives as discussed in HPI, a complete review of systems was performed and all other systems are negative. Pertinent imaging and labs reviewed. Physical examination: Vital signs reviewed General: non toxic, no distress, on 2 L nasal cannula Derm: no unusual rashes/lesions, warm Head: atraumatic, normocephalic, symmetric Eyes: EOMI, anicteric sclera, pupils equal round reactive to light ENT: Nose and ears atraumatic Neck: No cervical lymphadenopathy, trachea midline, supple Mouth: no lip lesion, mucus membranes moist Cardiovascular: S1S2 reg, no murmur Lungs: CTA bilateral, no rhonchi, no rales, no accessory muscle use Abdominal: soft, nontender to palpation, no guarding, suprapubic pain on light palpation Ext: muscle strength 5 out of 5 in all 4 extremities grossly, no gross muscle atrophy, no contractures, positive dorsalis pedis pulse bilateral, no edema Neuro: CN II-XI grossly intact, no gross focal neuro deficits Psych: Alert and oriented x3, appropriate affect and mood Assessment/Plan: Patient is a 59-year-old female with past medical history of coronary artery disease, heart failure, COPD, CKD on dialysis, diabetes mellitus, fibromyalgia, GERD, hyperlipidemia, hypertension, and osteoarthritis presented to the emergency department with abdominal pain. Patient is admitted to inpatient medicine service and will be closely monitored. Active: #. Emphysematous cystitis with microperforations, improving #. Hematuria likely due to above Abdomen/pelvis CT showed emphysematous cystitis with findings concerning for microperforation and surrounding small foci of pneumoperitoneum. Unasyn q6h IV discontinued on 09/14. Zosyn IVPB discontinued on 09/16. Urine culture shows ESBL Blood cultures pending Monitor CBC ID consulted. Continue with ertapenem 0.5 g IVPB daily. Will need to continue with IV antibiotics upon discharge. Working with case management on discharge needs. Urology consulted. For formal evaluation of enterovesicular fistula. Patient hesitant about a colonoscopy to evaluate fistula. For possible cystoscopy. #. Insulin-dependent diabetes mellitus #. Hyperglycemia, controlled Has home 10 to 12 units of Lantus SQ daily and NovoLog sliding scale Glucose today at 156. POC glucose at 1 time was 41 overnight. Insulin NovoLog low-dose sliding scale ACHS Discontinue Levemir 10 units q. nightly Glucose Accu-Cheks ACHS. Monitor for hypoglycemia #. Hypovolemic hyponatremia, improving Sodium 134 today. Patient has no new symptoms and is hemodynamically stable Morning BMP #. End-stage renal disease on hemodialysis Nephrology consulted Monday dialysis schedule #. Anemia of chronic disease Montior CBC Chronic: #. Hyperlipidemia #. Hypothyroid #. GERD #. CAD #. COPD not in acute exacerbation #. Congestive heart failure with left ventricular ejection fraction of 15 to 20% on echo 08/28/2024 Resume ASA 81 mg PO QD. Lipitor 40 mg PO QHS. Plavix 75 mg PO QD. Metoprolol 25 mg PO QD. Entresto 1 tab PO BID. Torsemide 40 mg PO QD. Would benefit from Aldactone and AICD Cardiac monitoring Monitor for fluid overload F: Oral intake E: Replete as needed N: Renal diet A: Ambulatory DVT prophylaxis: Heparin subq GI Prophylaxis: Protonix Mandy Mary Anne MD PGY-1/Entry Level Account Representative Dictation was produced using [email or web address] dictation software. please excuse any grammatical, word or spelling errors. I saw and evaluated the patient during the tate and critical portions of this encounter, and discussed the case in detail with the resident author of this note, I agree with the Assessment and Plan, and my changes, if any, are noted below. Patient feeling better. UCx growing ESBL. Dr Sultana recommends IV antibiotics on discharge. Patient does not believe she will be able to administer antibiotics at home. Discussed with case management to check if antibiotics can be given to her during dialysis. Patient will require a formal evaluation to rule out an enterovesical fistula. Patient hesitant regarding C-scope. Only one organism isolated from UCx, will discuss with Urology regarding possible cystoscopy. Objective - Vital Signs Vital signs: Vital Signs Temp 98.4 F 09/17/24 01:46 Pulse 67 09/17/24 01:46 Resp 18 09/17/24 01:46 BP 106/60 09/17/24 01:46 Pulse Ox 91 L 09/17/24 01:46 FiO2 Intake & Output 09/16/24 09/17/24 09/17/24 18:59 06:59 18:59 Intake Total 400 1620 Output Total 5800 1100 Balance -5400 520 Weight 62.2 kg Intake: Oral 1620 Hemodialysis 400 Output: Urine 1100 Hemodialysis 3100 Hemodialysis Net Amount 2700 Other: Voiding Method Indwelling Catheter Indwelling Catheter # Bowel Movements 1 3 - Labs CBC & Chem 7: 09/17/24 03:54 09/17/24 03:54 Labs: Abnormal Lab Results - Last 24 Hours (Table) 09/14/24 09/16/24 09/16/24 Range/Units 08:52 03:17 03:17 RBC 3.55 L (4.10-5.20) X 10*6/uL Hgb 11.4 L (12.0-15.0) g/dL MCV 106.8 H (80.0-97.0) FL MCH 32.1 H (27.0-32.0) pg MCHC 30.1 L (32.0-37.0) g/dL RDW 16.0 H (11.5-14.5) % Sodium 133 L (135-145) mmol/L Chloride 94 L (96-109) mmol/L Anion Gap 17.20 H (4.00-12.00) mmol/L BUN 45.1 H (9.0-27.0) mg/dL Creatinine 4.8 H (0.6-1.5) mg/dL Est GFR (CKD-EPI) 10 L (>=60) BUN/Creatinine Ratio 9.40 L (12.00-20.00) Ratio Glucose 245 H (70-110) mg/dL POC Glucose (mg/dL) 464 H (70-110) mg/dL Calcium 8.6 L (8.7-10.3) mg/dL 09/16/24 09/16/24 09/16/24 Range/Units 11:36 17:05 20:51 RBC (4.10-5.20) X 10*6/uL Hgb (12.0-15.0) g/dL MCV (80.0-97.0) FL MCH (27.0-32.0) pg MCHC (32.0-37.0) g/dL RDW (11.5-14.5) % Sodium (135-145) mmol/L Chloride (96-109) mmol/L Anion Gap (4.00-12.00) mmol/L BUN (9.0-27.0) mg/dL Creatinine (0.6-1.5) mg/dL Est GFR (CKD-EPI) (>=60) BUN/Creatinine Ratio (12.00-20.00) Ratio Glucose (70-110) mg/dL POC Glucose (mg/dL) 387 H 236 H 418 H (70-110) mg/dL Calcium (8.7-10.3) mg/dL 09/17/24 09/17/24 Range/Units 02:31 07:07 RBC (4.10-5.20) X 10*6/uL Hgb (12.0-15.0) g/dL MCV (80.0-97.0) FL MCH (27.0-32.0) pg MCHC (32.0-37.0) g/dL RDW (11.5-14.5) % Sodium (135-145) mmol/L Chloride (96-109) mmol/L Anion Gap (4.00-12.00) mmol/L BUN (9.0-27.0) mg/dL Creatinine (0.6-1.5) mg/dL Est GFR (CKD-EPI) (>=60) BUN/Creatinine Ratio (12.00-20.00) Ratio Glucose (70-110) mg/dL POC Glucose (mg/dL) 227 H 41 L* (70-110) mg/dL Calcium (8.7-10.3) mg/dL Microbiology - Last 24 Hours (Table) 09/13/24 22:50 Blood Culture - Preliminary Blood 09/13/24 21:57 Urine Culture - Final Urine,Voided Escherichia coli
--- NOTE | 2024-09-17 12:55 | P.PN ---
Subjective Progress Note Date: 09/17/24 Principal diagnosis: Reason for follow-up is emphysematous cystitis Patient is a 59-year-old female with a past medical history significant for coronary artery disease CVA TIA diabetes mellitus fibromyalgia hypertension hyperlipidemia patient did have a history of end-stage renal disease on hemodialysis since March 2024 through the right subclavian permacatheter, patient still makes urine presenting to the hospital with acute onset of lower abdominal pain apparently has some blood in the urine CT was suggestive of emphysematous cystitis and possible microperforation prompted this consultation. On today's evaluation that is 09/17/2024, Patient is afebrile this morning patient denies having any chest pain shortness of breath or cough, the patient is currently on 2 L nasal oxygen, patient denies any nausea vomiting abdominal pain has decreased in intensity mention feeling slightly better. Patient white count 7.04, creatinine 3.1 blood culture negative Objective - Vital Signs Vital signs: Vital Signs Temp 98 F 09/17/24 07:16 Pulse 75 09/17/24 07:16 Resp 18 09/17/24 07:16 BP 123/64 09/17/24 07:16 Pulse Ox 94 L 09/17/24 08:48 FiO2 Intake & Output 09/16/24 09/17/24 09/17/24 18:59 06:59 18:59 Intake Total 400 1620 Output Total 5800 1100 Balance -5400 520 Weight 62.2 kg Intake: Oral 1620 Hemodialysis 400 Output: Urine 1100 Hemodialysis 3100 Hemodialysis Net Amount 2700 Other: Voiding Method Indwelling Catheter Indwelling Catheter # Bowel Movements 1 3 1 - Exam GENERAL DESCRIPTION: Middle-age female up in bed in no distress RESPIRATORY SYSTEM: Unlabored breathing , decreased breath sounds at bases HEART: S1 S2 regular rate and rhythm , ABDOMEN: Soft , no tenderness EXTREMITIES: No edema feet - Labs CBC & Chem 7: 09/17/24 03:54 09/17/24 03:54 Labs: Abnormal Lab Results - Last 24 Hours (Table) 09/16/24 09/16/24 09/16/24 Range/Units 11:36 17:05 20:51 RBC (4.10-5.20) X 10*6/uL Hgb (12.0-15.0) g/dL Hct (37.2-46.3) % MCV (80.0-97.0) FL MCHC (32.0-37.0) g/dL RDW (11.5-14.5) % Sodium (135-145) mmol/L Anion Gap (4.00-12.00) mmol/L Creatinine (0.6-1.5) mg/dL Est GFR (CKD-EPI) (>=60) BUN/Creatinine Ratio (12.00-20.00) Ratio Glucose (70-110) mg/dL POC Glucose (mg/dL) 387 H 236 H 418 H (70-110) mg/dL Calcium (8.7-10.3) mg/dL 09/17/24 09/17/24 09/17/24 Range/Units 02:31 03:54 03:54 RBC 3.54 L (4.10-5.20) X 10*6/uL Hgb 11.3 L (12.0-15.0) g/dL Hct 36.1 L (37.2-46.3) % MCV 102.0 H (80.0-97.0) FL MCHC 31.3 L (32.0-37.0) g/dL RDW 15.9 H (11.5-14.5) % Sodium 134 L (135-145) mmol/L Anion Gap 14.60 H (4.00-12.00) mmol/L Creatinine 3.1 H (0.6-1.5) mg/dL Est GFR (CKD-EPI) 17 L (>=60) BUN/Creatinine Ratio 6.84 L (12.00-20.00) Ratio Glucose 156 H (70-110) mg/dL POC Glucose (mg/dL) 227 H (70-110) mg/dL Calcium 8.1 L (8.7-10.3) mg/dL 09/17/24 Range/Units 07:07 RBC (4.10-5.20) X 10*6/uL Hgb (12.0-15.0) g/dL Hct (37.2-46.3) % MCV (80.0-97.0) FL MCHC (32.0-37.0) g/dL RDW (11.5-14.5) % Sodium (135-145) mmol/L Anion Gap (4.00-12.00) mmol/L Creatinine (0.6-1.5) mg/dL Est GFR (CKD-EPI) (>=60) BUN/Creatinine Ratio (12.00-20.00) Ratio Glucose (70-110) mg/dL POC Glucose (mg/dL) 41 L* (70-110) mg/dL Calcium (8.7-10.3) mg/dL Microbiology - Last 24 Hours (Table) 09/13/24 22:50 Blood Culture - Preliminary Blood 09/13/24 21:57 Urine Culture - Final Urine,Voided Escherichia coli Assessment and Plan (1) Emphysematous cystitis Current Visit: Yes Status: Acute Code(s): N30.80 - OTHER CYSTITIS WITHOUT HEMATURIA SNOMED Code(s): 88063119 (2) Infection due to ESBL-producing Escherichia coli Current Visit: Yes Status: Acute Code(s): A49.8 - OTHER BACTERIAL INFECTIONS OF UNSPECIFIED SITE; Z16.12 - EXTENDED SPECTRUM BETA LACTAMASE (ESBL) RESISTANCE SNOMED Code(s): 174421362 Plan: 1patient presented to hospital with acute abdominal pain which has been mostly suprapubic area patient makes small amount of urine and noticed to have some blood with significant abnormality seen on the CT concerning for emphysematous cystitis and possible microperforation versus fistula. 2patient urine has been finalized with ESBL E. coli blood culture have been negative so far 3patient is currently being treated ertapenem 500 mg daily, patient will need a midline and a 12-day course of Invanz on discharge to finish a 2-week course discussed with the resident physician Dictation was produced using [employer] dictation software. please excuse any grammatical, word or spelling errors. Time with Patient: Less than 30
[2024-09-17 16:30] LABS: Glucose,Whole Blood 376 mg/dL (70-110)
[2024-09-17 20:25] LABS: Glucose,Whole Blood 356 mg/dL (70-110)
--- NOTE | 2024-09-17 22:16 | P.PN ---
Subjective Patient is seen for follow-up for end-stage disease. Status post hemodialysis yesterday with UF of 2.7 L No significant complaints today. Objective - Vital Signs Vital signs: Vital Signs Temp 97.9 F 09/17/24 19:01 Pulse 64 09/17/24 19:01 Resp 15 09/17/24 19:01 BP 108/62 09/17/24 19:01 Pulse Ox 97 09/17/24 19:01 FiO2 Intake & Output 09/17/24 09/17/24 09/18/24 06:59 18:59 06:59 Intake Total 1620 Output Total 1100 1 Balance 520 -1 Weight 62.2 kg Intake: Oral 1620 Output: Urine 1100 Stool 1 Other: Voiding Method Indwelling Catheter Indwelling Catheter # Bowel Movements 3 2 1 - Exam Patient is awake, comfortable, no acute distress. Examination of the heart S1 and S2 Examination of the lungs bilateral breath sounds are heard Abdomen is soft nontender Examination of lower extremity shows no significant edema [employer] exam grossly intact - Labs CBC & Chem 7: 09/17/24 03:54 09/17/24 03:54 Labs: Abnormal Lab Results - Last 24 Hours (Table) 09/17/24 09/17/24 09/17/24 Range/Units 02:31 03:54 03:54 RBC 3.54 L (4.10-5.20) X 10*6/uL Hgb 11.3 L (12.0-15.0) g/dL Hct 36.1 L (37.2-46.3) % MCV 102.0 H (80.0-97.0) FL MCHC 31.3 L (32.0-37.0) g/dL RDW 15.9 H (11.5-14.5) % Sodium 134 L (135-145) mmol/L Anion Gap 14.60 H (4.00-12.00) mmol/L Creatinine 3.1 H (0.6-1.5) mg/dL Est GFR (CKD-EPI) 17 L (>=60) BUN/Creatinine Ratio 6.84 L (12.00-20.00) Ratio Glucose 156 H (70-110) mg/dL POC Glucose (mg/dL) 227 H (70-110) mg/dL Calcium 8.1 L (8.7-10.3) mg/dL 09/17/24 09/17/24 09/17/24 Range/Units 07:07 11:03 16:27 RBC (4.10-5.20) X 10*6/uL Hgb (12.0-15.0) g/dL Hct (37.2-46.3) % MCV (80.0-97.0) FL MCHC (32.0-37.0) g/dL RDW (11.5-14.5) % Sodium (135-145) mmol/L Anion Gap (4.00-12.00) mmol/L Creatinine (0.6-1.5) mg/dL Est GFR (CKD-EPI) (>=60) BUN/Creatinine Ratio (12.00-20.00) Ratio Glucose (70-110) mg/dL POC Glucose (mg/dL) 41 L* 227 H 376 H (70-110) mg/dL Calcium (8.7-10.3) mg/dL 09/17/24 Range/Units 20:24 RBC (4.10-5.20) X 10*6/uL Hgb (12.0-15.0) g/dL Hct (37.2-46.3) % MCV (80.0-97.0) FL MCHC (32.0-37.0) g/dL RDW (11.5-14.5) % Sodium (135-145) mmol/L Anion Gap (4.00-12.00) mmol/L Creatinine (0.6-1.5) mg/dL Est GFR (CKD-EPI) (>=60) BUN/Creatinine Ratio (12.00-20.00) Ratio Glucose (70-110) mg/dL POC Glucose (mg/dL) 356 H (70-110) mg/dL Calcium (8.7-10.3) mg/dL Microbiology - Last 24 Hours (Table) 09/13/24 22:50 Blood Culture - Preliminary Blood Assessment and Plan Assessment: 1. ESRD on HD MWF, last treatment Monday 2. Abdominal pain possibly related to UTI. CT howed emphysematous cystitis. 3. UTI, culture grew E. coli 4. Anemia with chronic kidney disease 5. HTN with CKD 6. CKD mineral bone disorder Plan: Hemodialysis in a.m. Continue with antibiotics.
[2024-09-18 02:09] LABS: Glucose,Whole Blood 307 mg/dL (70-110)
[2024-09-18 05:53] LABS: Glucose,Whole Blood 436 mg/dL (70-110)
[2024-09-18 09:03] LABS: Basophils # (A) 0.04 X 10*3/uL (0.00-0.10); Basophils % (A) 0.8 %; Eosinophils # (A) 0.22 X 10*3/uL (0.04-0.35); Eosinophils % (A) 4.2 %; HCT 38.1 % (37.2-46.3); HGB 11.7 g/dL (12.0-15.0); Lymphocytes # (A) 1.42 X 10*3/uL (0.90-5.00); Lymphocytes % (A) 27.4 %; MCH 31.6 pg (27.0-32.0); MCHC 30.7 g/dL (32.0-37.0); Mean Platelet Volume 10.5 FL (9.5-12.2); Monocytes # (A) 0.45 X 10*3/uL (0.20-1.00); Monocytes % (A) 8.7 %; NRBC Per 100 WBC 0 X 10*3/uL (0.00-0.01); Neutrophils # (A) 3.03 X 10*3/uL (1.80-7.70); Neutrophils % (A) 58.3 %; Platelet Count 202 X 10*3/uL (140-440); RDW 15.9 % (11.5-14.5); WBC 5.19 X 10*3/uL (4.50-10.00)
[2024-09-18 10:26] LABS: Blood Urea Nitrogen 29.2 mg/dL (9.0-27.0); Calcium 7.8 mg/dL (8.7-10.3); Carbon Dioxide 17.8 mmol/L (21.6-31.8); Chloride 96 mmol/L (96-109); Glucose 446 mg/dL (70-110); Potassium 4.5 mmol/L (3.5-5.5); Sodium 133 mmol/L (135-145)
[2024-09-18 11:24] LABS: Glucose,Whole Blood 255 mg/dL (70-110)
--- NOTE | 2024-09-18 11:57 | P.PN ---
Subjective Progress Note Date: 09/18/24 Patient is a 59-year-old female with past medical history of coronary artery disease with ischemic cardiomyopathy(underwent CABG X 4 in 2019) with left ventricular ejection fraction of 15 to 20%, COPD, ESRD on dialysis MWF via R chest catheter, diabetes mellitus, fibromyalgia, GERD, hyperlipidemia, hyperte nsion, and osteoarthritis presented to the emergency department with abdominal pain. Patient reported that this morning when she was using bathroom she felt pressure in the suprapubic region. Patient reported that she received dialysis earlier today and when she got home she started having intense suprapubic pressure. She also noticed some blood in her urine but states that has been a problem for quite some time. She characterizes the pain as a pressure-like sensation that comes and goes with 9 out of 10 intensity. She stated that she feels like she has to urinate but she cannot and there is also pain and burning when she tries to urinate. She also saw some blood when she wiped today and yesterday. Patient reports chills, nausea, dysuria. Denies chest pain, shortness of breath, fever, and abdominal pain, vomiting, diarrhea, constipation. Abdomen/pelvis CT shows emphysematous cystitis with findings concerning for microperforation and surrounding small foci of pneumoperitoneum. Evaluation for a fistulization is limited on the study with lack of oral or rectal contrast. Also showed nonspecific hepatomegaly. And scattered patchy attenuation and in the right lung may related to an acute infectious/inflammatory process. Bilateral pleural effusions and diffuse anasarca is concerning for third spacing versus volume overload. Labs on admission show WBC 9.8, hemoglobin 12.3, hematocrit 40, platelet 280, MCV 104.7, sodium 130, potassium 4.5, chloride 94, carbon dioxide 27, BUN 19, creatinine 1.6, glucose 263, lactic acid 1.7, AST 46, ALT 23, alkaline phosphatase 196, lipase 21 UA shows 3+ protein, 3+ glucose, trace ketones, large blood, negative for nitrites, large leukocyte esterase, 87 RBC, WBC of greater than 182 09/15 Patient was seen and examined. UCx GNB. Maintained on Zosyn. She was hypoglycemic overnight with BG as low as 42 which improved with D50. CBC and BMP significant for RBC 3.26, Hg 10.4, Hct 33.4, MCV 102.5, AG 15.1, BUN 38.4, Cr 4, glu 50, Ca 8.3. A1c 8.7. 09/16/2024 patient seen and examined at bedside. Patient reported her suprapubic pain is improved. No new complaints overnight. Sodium decreased at 133 glucose elevated at 245 calcium decreased at 8.6 WBC 6.83 09/17/2024 patient seen and examined at bedside. No new complaints overnight. Overnight, patient had episode of hypoglycemia where POC glucose was 41. WBC 7. 04 hemoglobin 11.13 platelet count 204,000 sodium 134 potassium 3.7 chloride 97 bicarb 22.4 BUN 21.2 creatinine 3.1 glucose 156 calcium 8.1 09/18/2024 patient seen and examined at bedside. No new complaints overnight. WBC 5.19 hemoglobin 11.7 platelet count 202,000 sodium 133 potassium 4.5 BUN 29.2 creatinine 4 calcium 7.8 C. difficile negative Review of systems: Pertinent positives and negatives as discussed in HPI, a complete review of systems was performed and all other systems are negative. Pertinent imaging and labs reviewed. Physical examination: Vital signs reviewed General: non toxic, no distress, on 2 L nasal cannula Derm: no unusual rashes/lesions, warm Head: atraumatic, normocephalic, symmetric Eyes: EOMI, anicteric sclera, pupils equal round reactive to light ENT: Nose and ears atraumatic Neck: No cervical lymphadenopathy, trachea midline, supple Mouth: no lip lesion, mucus membranes moist Cardiovascular: S1S2 reg, no murmur Lungs: CTA bilateral, no rhonchi, no rales, no accessory muscle use Abdominal: soft, nontender to palpation, no guarding, suprapubic pain on light palpation Ext: muscle strength 5 out of 5 in all 4 extremities grossly, no gross muscle atrophy, no contractures, positive dorsalis pedis pulse bilateral, no edema Neuro: CN II-XI grossly intact, no gross focal neuro deficits Psych: Alert and oriented x3, appropriate affect and mood Assessment/Plan: Patient is a 59-year-old female with past medical history of coronary artery disease, heart failure, COPD, CKD on dialysis, diabetes mellitus, fibromyalgia, GERD, hyperlipidemia, hypertension, and osteoarthritis presented to the emergency department with abdominal pain. Patient is admitted to inpatient medicine service and will be closely monitored. Active: #. Emphysematous cystitis with microperforations, improving #. Hematuria likely due to above Abdomen/pelvis CT showed emphysematous cystitis with findings concerning for microperforation and surrounding small foci of pneumoperitoneum. Unasyn q6h IV discontinued on 09/14. Zosyn IVPB discontinued on 09/16. Urine culture shows ESBL Blood cultures pending Monitor CBC ID note reviewed, continue with ertapenem 0.5 g IVPB daily, 11 days at the time of discharge to complete a 2-week course. Working with case management on discharge needs. Urology consulted. For formal evaluation of enterovesicular fistula. Patient hesitant about a colonoscopy to evaluate fistula. Cystoscopy outpatient. For midline insertion today #. Insulin-dependent diabetes mellitus #. Hyperglycemia Has home 10 to 12 units of Lantus SQ daily and NovoLog sliding scale Glucose today at 446 Insulin NovoLog low-dose sliding scale ACHS Resume Levemir 10 units q. a.m. Glucose Accu-Cheks ACHS. Monitor for hypoglycemia #. Hyponatremia, stable #. Anion gap metabolic acidosis secondary to renal disease Patient asymptomatic and hemodynamically stable Anion gap 19 bicarb 17.8 Monitor BMP #. End-stage renal disease on hemodialysis Nephrology note reviewed, dialysis today Monday dialysis schedule #. Anemia of chronic disease Montior CBC Chronic: #. Hyperlipidemia #. Hypothyroid #. GERD #. CAD #. COPD not in acute exacerbation #. Congestive heart failure with left ventricular ejection fraction of 15 to 20% on echo 08/28/2024 Resume ASA 81 mg PO QD. Lipitor 40 mg PO QHS. Plavix 75 mg PO QD. Metoprolol 25 mg PO QD. Entresto 1 tab PO BID. Torsemide 40 mg PO QD. Would benefit from Aldactone and AICD Cardiac monitoring Monitor for fluid overload F: Oral intake E: Replete as needed N: Renal diet A: Ambulatory DVT prophylaxis: Heparin subq GI Prophylaxis: Protonix Mandy Anne MD PGY-1/Product Manager [employer] Dictation was produced using [employer] dictation software. please excuse any grammatical, word or spelling errors. I have seen and evaluated the patient today. Discussed with the resident and agree with the residents finding and plan as documented in the resident's note. Changes highlighted in blue font. Objective - Vital Signs Vital signs: Vital Signs Temp 98.1 F 09/18/24 07:29 Pulse 77 09/18/24 07:29 Resp 18 09/18/24 08:00 BP 135/77 09/18/24 07:29 Pulse Ox 94 L 09/18/24 07:29 FiO2 Intake & Output 09/17/24 09/18/24 09/18/24 18:59 06:59 18:59 Output Total 1 350 Balance -1 -350 Weight 63.6 kg Output: Urine 350 Stool 1 Other: Voiding Method Indwelling Catheter Indwelling Catheter # Bowel Movements 2 1 1 - Labs CBC & Chem 7: 09/18/24 04:35 09/18/24 04:35 Labs: Abnormal Lab Results - Last 24 Hours (Table) 09/17/24 09/17/24 09/17/24 Range/Units 11:03 16:27 20:24 RBC (4.10-5.20) X 10*6/uL Hgb (12.0-15.0) g/dL MCV (80.0-97.0) FL MCHC (32.0-37.0) g/dL RDW (11.5-14.5) % Sodium (135-145) mmol/L Carbon Dioxide (21.6-31.8) mmol/L Anion Gap (4.00-12.00) mmol/L BUN (9.0-27.0) mg/dL Creatinine (0.6-1.5) mg/dL Est GFR (CKD-EPI) (>=60) BUN/Creatinine Ratio (12.00-20.00) Ratio Glucose (70-110) mg/dL POC Glucose (mg/dL) 227 H 376 H 356 H (70-110) mg/dL Calcium (8.7-10.3) mg/dL 09/18/24 09/18/24 09/18/24 Range/Units 02:08 04:35 04:35 RBC 3.70 L (4.10-5.20) X 10*6/uL Hgb 11.7 L (12.0-15.0) g/dL MCV 103.0 H (80.0-97.0) FL MCHC 30.7 L (32.0-37.0) g/dL RDW 15.9 H (11.5-14.5) % Sodium 133 L (135-145) mmol/L Carbon Dioxide 17.8 L (21.6-31.8) mmol/L Anion Gap 19.20 H (4.00-12.00) mmol/L BUN 29.2 H (9.0-27.0) mg/dL Creatinine 4.0 H (0.6-1.5) mg/dL Est GFR (CKD-EPI) 12 L (>=60) BUN/Creatinine Ratio 7.30 L (12.00-20.00) Ratio Glucose 446 H (70-110) mg/dL POC Glucose (mg/dL) 307 H (70-110) mg/dL Calcium 7.8 L (8.7-10.3) mg/dL 09/18/24 Range/Units 05:52 RBC (4.10-5.20) X 10*6/uL Hgb (12.0-15.0) g/dL MCV (80.0-97.0) FL MCHC (32.0-37.0) g/dL RDW (11.5-14.5) % Sodium (135-145) mmol/L Carbon Dioxide (21.6-31.8) mmol/L Anion Gap (4.00-12.00) mmol/L BUN (9.0-27.0) mg/dL Creatinine (0.6-1.5) mg/dL Est GFR (CKD-EPI) (>=60) BUN/Creatinine Ratio (12.00-20.00) Ratio Glucose (70-110) mg/dL POC Glucose (mg/dL) 436 H (70-110) mg/dL Calcium (8.7-10.3) mg/dL
--- NOTE | 2024-09-18 12:19 | P.PN ---
Subjective Progress Note Date: 09/18/24 Principal diagnosis: Reason for follow-up is emphysematous cystitis Patient is a 59-year-old female with a past medical history significant for coronary artery disease CVA TIA diabetes mellitus fibromyalgia hypertension hyperlipidemia patient did have a history of end-stage renal disease on hemodialysis since March 2024 through the right subclavian permacatheter, patient still makes urine presenting to the hospital with acute onset of lower abdominal pain apparently has some blood in the urine CT was suggestive of emphysematous cystitis and possible microperforation prompted this consultation. On today's evaluation that is 09/18/2024,the patient denies any fever or any chills, patient is breathing comfortably on room air, the patient denies chest pain shortness of breath and no significant cough, patient lower abdominal discomfort slightly decreased some nausea but no vomiting no diarrhea. Patient white count is 5.19, creatinine is 4.0 blood culture has been negative Objective - Vital Signs Vital signs: Vital Signs Temp 98.1 F 09/18/24 07:29 Pulse 77 09/18/24 07:29 Resp 18 09/18/24 07:29 BP 135/77 09/18/24 07:29 Pulse Ox 94 L 09/18/24 07:29 FiO2 Intake & Output 09/17/24 09/18/24 09/18/24 18:59 06:59 18:59 Output Total 1 350 Balance -1 -350 Weight 63.6 kg Output: Urine 350 Stool 1 Other: Voiding Method Indwelling Catheter Indwelling Catheter # Bowel Movements 2 1 1 - Exam GENERAL DESCRIPTION: Middle-age female up in bed in no distress RESPIRATORY SYSTEM: Unlabored breathing , decreased breath sounds at bases HEART: S1 S2 regular rate and rhythm , ABDOMEN: Soft , no tenderness EXTREMITIES: No edema feet - Labs CBC & Chem 7: 09/18/24 04:35 09/18/24 04:35 Labs: Abnormal Lab Results - Last 24 Hours (Table) 09/17/24 09/17/24 09/17/24 Range/Units 11:03 16:27 20:24 RBC (4.10-5.20) X 10*6/uL Hgb (12.0-15.0) g/dL MCV (80.0-97.0) FL MCHC (32.0-37.0) g/dL RDW (11.5-14.5) % POC Glucose (mg/dL) 227 H 376 H 356 H (70-110) mg/dL 09/18/24 09/18/24 09/18/24 Range/Units 02:08 04:35 05:52 RBC 3.70 L (4.10-5.20) X 10*6/uL Hgb 11.7 L (12.0-15.0) g/dL MCV 103.0 H (80.0-97.0) FL MCHC 30.7 L (32.0-37.0) g/dL RDW 15.9 H (11.5-14.5) % POC Glucose (mg/dL) 307 H 436 H (70-110) mg/dL Assessment and Plan (1) Emphysematous cystitis Current Visit: Yes Status: Acute Code(s): N30.80 - OTHER CYSTITIS WITHOUT HEMATURIA SNOMED Code(s): 44208891 (2) Infection due to ESBL-producing Escherichia coli Current Visit: Yes Status: Acute Code(s): A49.8 - OTHER BACTERIAL INFECTIONS OF UNSPECIFIED SITE; Z16.12 - EXTENDED SPECTRUM BETA LACTAMASE (ESBL) RESISTANCE SNOMED Code(s): 436448794 Plan: 1patient presented to hospital with acute abdominal pain which has been mostly suprapubic area patient makes small amount of urine and noticed to have some blood with significant abnormality seen on the CT concerning for emphysematous cystitis and possible microperforation versus fistula. 2patient urine has been finalized with ESBL E. coli blood culture have been negative so far 3patient is currently being treated ertapenem 500 mg daily, patient will need a midline and a 11-day course of Invanz on discharge to finish a 2-week course, currently we do not have any drug that can be given with the dialysis to treat ESBL E. coli emphysematous cystitis discussed with the nephrology who did okay with the midline placement Dictation was produced using [email or web address] dictation software. please excuse any grammatical, word or spelling errors. Time with Patient: Less than 30
--- NOTE | 2024-09-18 13:47 | P.PN ---
Subjective Patient is seen for follow-up for end-stage disease. Seen on hemodialysis. Tolerating treatment well. Patient will be discharged with [facility] with plans for daily antibiotics for about 10 days post discharge. No significant complaints today. Objective - Vital Signs Vital signs: Vital Signs Temp 97.7 F 09/18/24 13:10 Pulse 79 09/18/24 13:10 Resp 18 09/18/24 13:10 BP 139/72 09/18/24 13:10 Pulse Ox 95 09/18/24 13:10 FiO2 Intake & Output 09/17/24 09/18/24 09/18/24 18:59 06:59 18:59 Output Total 1 350 Balance -1 -350 Weight 63.6 kg Output: Urine 350 Stool 1 Other: Voiding Method Indwelling Catheter Indwelling Catheter # Bowel Movements 2 1 1 - Exam Patient is awake, comfortable, no acute distress. 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 - Labs CBC & Chem 7: 09/18/24 04:35 09/18/24 04:35 Labs: Abnormal Lab Results - Last 24 Hours (Table) 09/17/24 09/17/24 09/18/24 Range/Units 16:27 20:24 02:08 RBC (4.10-5.20) X 10*6/uL Hgb (12.0-15.0) g/dL MCV (80.0-97.0) FL MCHC (32.0-37.0) g/dL RDW (11.5-14.5) % Sodium (135-145) mmol/L Carbon Dioxide (21.6-31.8) mmol/L Anion Gap (4.00-12.00) mmol/L BUN (9.0-27.0) mg/dL Creatinine (0.6-1.5) mg/dL Est GFR (CKD-EPI) (>=60) BUN/Creatinine Ratio (12.00-20.00) Ratio Glucose (70-110) mg/dL POC Glucose (mg/dL) 376 H 356 H 307 H (70-110) mg/dL Calcium (8.7-10.3) mg/dL 09/18/24 09/18/24 09/18/24 Range/Units 04:35 04:35 05:52 RBC 3.70 L (4.10-5.20) X 10*6/uL Hgb 11.7 L (12.0-15.0) g/dL MCV 103.0 H (80.0-97.0) FL MCHC 30.7 L (32.0-37.0) g/dL RDW 15.9 H (11.5-14.5) % Sodium 133 L (135-145) mmol/L Carbon Dioxide 17.8 L (21.6-31.8) mmol/L Anion Gap 19.20 H (4.00-12.00) mmol/L BUN 29.2 H (9.0-27.0) mg/dL Creatinine 4.0 H (0.6-1.5) mg/dL Est GFR (CKD-EPI) 12 L (>=60) BUN/Creatinine Ratio 7.30 L (12.00-20.00) Ratio Glucose 446 H (70-110) mg/dL POC Glucose (mg/dL) 436 H (70-110) mg/dL Calcium 7.8 L (8.7-10.3) mg/dL 09/18/24 Range/Units 11:22 RBC (4.10-5.20) X 10*6/uL Hgb (12.0-15.0) g/dL MCV (80.0-97.0) FL MCHC (32.0-37.0) g/dL RDW (11.5-14.5) % Sodium (135-145) mmol/L Carbon Dioxide (21.6-31.8) mmol/L Anion Gap (4.00-12.00) mmol/L BUN (9.0-27.0) mg/dL Creatinine (0.6-1.5) mg/dL Est GFR (CKD-EPI) (>=60) BUN/Creatinine Ratio (12.00-20.00) Ratio Glucose (70-110) mg/dL POC Glucose (mg/dL) 255 H (70-110) mg/dL Calcium (8.7-10.3) mg/dL Assessment and Plan Assessment: 1. ESRD on HD MWF, last treatment Monday 2. Abdominal pain possibly related to UTI. CT howed emphysematous cystitis. 3. UTI, culture grew E. coli 4. Anemia with chronic kidney disease 5. HTN with CKD 6. CKD mineral bone disorder Plan: Hemodialysis today DC [place] catheter [facility] for antibiotics for about 10 days post discharge
[2024-09-18] MEDS: INSULIN DETEMIR (LEVEMIR) 100 UNIT/ML SYR SQ STA (14:40)
[2024-09-18 14:44] LABS: Glucose,Whole Blood 363 mg/dL (70-110)
[2024-09-18 16:21] LABS: Glucose,Whole Blood 373 mg/dL (70-110)
[2024-09-18 20:14] LABS: Glucose,Whole Blood 205 mg/dL (70-110)
[2024-09-19 06:19] LABS: Glucose,Whole Blood 67 mg/dL (70-110)
[2024-09-19 06:46] LABS: Glucose,Whole Blood 89 mg/dL (70-110)
[2024-09-19] MEDS: INSULIN DETEMIR (LEVEMIR) 100 UNIT/ML SYR SQ SCH (06:47)
[2024-09-19 08:38] LABS: Basophils # (A) 0.05 X 10*3/uL (0.00-0.10); Eosinophils % (A) 4.1 %; HCT 37.2 % (37.2-46.3); HGB 11.7 g/dL (12.0-15.0); Lymphocytes # (A) 1.66 X 10*3/uL (0.90-5.00); MCH 32.6 pg (27.0-32.0); MCHC 31.5 g/dL (32.0-37.0); MCV 103.6 FL (80.0-97.0); Mean Platelet Volume 10.3 FL (9.5-12.2); Monocytes # (A) 0.54 X 10*3/uL (0.20-1.00); Monocytes % (A) 11.1 %; NRBC Per 100 WBC 0 X 10*3/uL (0.00-0.01); Neutrophils # (A) 2.42 X 10*3/uL (1.80-7.70); Neutrophils % (A) 49.6 %; Platelet Count 200 X 10*3/uL (140-440); RBC 3.59 X 10*6/uL (4.10-5.20); RDW 15.8 % (11.5-14.5); WBC 4.88 X 10*3/uL (4.50-10.00)
[2024-09-19 11:35] LABS: BUN/Creat Ratio 5.97 Ratio (12.00-20.00); Blood Urea Nitrogen 17.3 mg/dL (9.0-27.0); Carbon Dioxide 23.9 mmol/L (21.6-31.8); Chloride 100 mmol/L (96-109); Glucose 38 mg/dL (70-110); Potassium 3.7 mmol/L (3.5-5.5); Sodium 135 mmol/L (135-145)
[2024-09-19 11:37] LABS: Glucose,Whole Blood 233 mg/dL (70-110)
--- NOTE | 2024-09-19 12:00 | P.PN ---
Subjective Progress Note Date: 09/19/24 Patient is a 59-year-old female with past medical history of coronary artery disease with ischemic cardiomyopathy(underwent CABG X 4 in 2019) with left ventricular ejection fraction of 15 to 20%, COPD, ESRD on dialysis MWF via R chest catheter, diabetes mellitus, fibromyalgia, GERD, hyperlipidemia, hyperte nsion, and osteoarthritis presented to the emergency department with abdominal pain. Patient reported that this morning when she was using bathroom she felt pressure in the suprapubic region. Patient reported that she received dialysis earlier today and when she got home she started having intense suprapubic pressure. She also noticed some blood in her urine but states that has been a problem for quite some time. She characterizes the pain as a pressure-like sensation that comes and goes with 9 out of 10 intensity. She stated that she feels like she has to urinate but she cannot and there is also pain and burning when she tries to urinate. She also saw some blood when she wiped today and yesterday. Patient reports chills, nausea, dysuria. Denies chest pain, shortness of breath, fever, and abdominal pain, vomiting, diarrhea, constipation. Abdomen/pelvis CT shows emphysematous cystitis with findings concerning for microperforation and surrounding small foci of pneumoperitoneum. Evaluation for a fistulization is limited on the study with lack of oral or rectal contrast. Also showed nonspecific hepatomegaly. And scattered patchy attenuation and in the right lung may related to an acute infectious/inflammatory process. Bilateral pleural effusions and diffuse anasarca is concerning for third spacing versus volume overload. Labs on admission show WBC 9.8, hemoglobin 12.3, hematocrit 40, platelet 280, MCV 104.7, sodium 130, potassium 4.5, chloride 94, carbon dioxide 27, BUN 19, creatinine 1.6, glucose 263, lactic acid 1.7, AST 46, ALT 23, alkaline phosphatase 196, lipase 21 UA shows 3+ protein, 3+ glucose, trace ketones, large blood, negative for nitrites, large leukocyte esterase, 87 RBC, WBC of greater than 182 09/15 Patient was seen and examined. UCx GNB. Maintained on Zosyn. She was hypoglycemic overnight with BG as low as 42 which improved with D50. CBC and BMP significant for RBC 3.26, Hg 10.4, Hct 33.4, MCV 102.5, AG 15.1, BUN 38.4, Cr 4, glu 50, Ca 8.3. A1c 8.7. 09/16/2024 patient seen and examined at bedside. Patient reported her suprapubic pain is improved. No new complaints overnight. Sodium decreased at 133 glucose elevated at 245 calcium decreased at 8.6 WBC 6.83 09/17/2024 patient seen and examined at bedside. No new complaints overnight. Overnight, patient had episode of hypoglycemia where POC glucose was 41. WBC 7. 04 hemoglobin 11.13 platelet count 204,000 sodium 134 potassium 3.7 chloride 97 bicarb 22.4 BUN 21.2 creatinine 3.1 glucose 156 calcium 8.1 09/18/2024 patient seen and examined at bedside. No new complaints overnight. WBC 5.19 hemoglobin 11.7 platelet count 202,000 sodium 133 potassium 4.5 BUN 29.2 creatinine 4 calcium 7.8 C. difficile negative 09/19/2024 patient seen and examined at bedside. No new complaints overnight. WBC 4.88 hemoglobin 11.7 platelet count 200,000 sodium 135 potassium 3.7 bicarb 23 BUN 17.3 creatinine 2.9 glucose very low at 38 Review of systems: Pertinent positives and negatives as discussed in HPI, a complete review of systems was performed and all other systems are negative. Pertinent imaging and labs reviewed. Physical examination: Vital signs reviewed General: non toxic, no distress, on 2 L nasal cannula Derm: no unusual rashes/lesions, warm Head: atraumatic, normocephalic, symmetric Eyes: EOMI, anicteric sclera, pupils equal round reactive to light ENT: Nose and ears atraumatic Neck: No cervical lymphadenopathy, trachea midline, supple Mouth: no lip lesion, mucus membranes moist Cardiovascular: S1S2 reg, no murmur Lungs: CTA bilateral, no rhonchi, no rales, no accessory muscle use Abdominal: soft, nontender to palpation, no guarding, suprapubic pain on light palpation Ext: muscle strength 5 out of 5 in all 4 extremities grossly, no gross muscle atrophy, no contractures, positive dorsalis pedis pulse bilateral, no edema Neuro: CN II-XI grossly intact, no gross focal neuro deficits Psych: Alert and oriented x3, appropriate affect and mood Assessment/Plan: Patient is a 59-year-old female with past medical history of coronary artery disease, heart failure, COPD, CKD on dialysis, diabetes mellitus, fibromyalgia, GERD, hyperlipidemia, hypertension, and osteoarthritis presented to the emergency department with abdominal pain. Patient is admitted to inpatient medicine service and will be closely monitored. Active: #. Emphysematous cystitis with microperforations, improving #. Hematuria likely due to above Abdomen/pelvis CT showed emphysematous cystitis with findings concerning for microperforation and surrounding small foci of pneumoperitoneum. Unasyn q6h IV discontinued on 09/14. Zosyn IVPB discontinued on 09/16. Urine culture shows ESBL Blood cultures negative Monitor CBC ID note reviewed, continue with ertapenem 0.5 g IVPB daily, 11 days at the time of discharge to complete a 2-week course. Working with case management on discharge needs. Urology consulted. For formal evaluation of enterovesicular fistula. Patient hesitant about a colonoscopy to evaluate fistula. Cystoscopy outpatient. For midline insertion POD 1 #. Insulin-dependent diabetes mellitus #. Hyperglycemia Has home 10 to 12 units of Lantus SQ daily and NovoLog sliding scale Another episode of hypoglycemia. Patient was asymptomatic and hemodynamically stable. Insulin NovoLog low-dose sliding scale ACHS Will reduce Levemir 5 units q. a.m. Glucose Accu-Cheks ACHS. Monitor for hypoglycemia #. Hyponatremia, stable #. Anion gap metabolic acidosis secondary to renal disease, resolved Patient asymptomatic and hemodynamically stable Anion gap 11.10 bicarb 23.9 Monitor BMP #. End-stage renal disease on hemodialysis Nephrology note reviewed, dialysis today Monday dialysis schedule #. Anemia of chronic disease Montior CBC Chronic: #. Hyperlipidemia #. Hypothyroid #. GERD #. CAD #. COPD not in acute exacerbation #. Congestive heart failure with left ventricular ejection fraction of 15 to 20% on echo 08/28/2024 Resume ASA 81 mg PO QD. Lipitor 40 mg PO QHS. Plavix 75 mg PO QD. Metoprolol 25 mg PO QD. Entresto 1 tab PO BID. Torsemide 40 mg PO QD. Would benefit from Aldactone and AICD Cardiac monitoring Monitor for fluid overload F: Oral intake E: Replete as needed N: Renal diet A: Ambulatory DVT prophylaxis: Heparin subq GI Prophylaxis: Protonix Mandy Anne MD PGY-1/Laundry Operator Finishing Dictation was produced using [employer] dictation software. please excuse any grammatical, word or spelling errors. Disposition: Pending Auth for SNF I have seen and evaluated the patient today. Discussed with the resident and agree with the residents finding and plan as documented in the resident's note. Changes highlighted in blue font. Objective - Vital Signs Vital signs: Vital Signs Temp 97.6 F 09/19/24 07:27 Pulse 74 09/19/24 07:27 Resp 15 09/19/24 07:27 BP 117/69 09/19/24 07:27 Pulse Ox 93 L 09/19/24 07:27 FiO2 Intake & Output 09/18/24 09/19/24 09/19/24 18:59 06:59 18:59 Intake Total 400 240 Output Total 4600 300 Balance -4200 -60 Weight 60 kg Intake: Oral 240 Hemodialysis 400 Output: Urine 200 300 Hemodialysis 2400 Hemodialysis Net Amount 2000 Other: Voiding Method Indwelling Catheter # Bowel Movements 1 - Labs CBC & Chem 7: 09/19/24 04:04 09/19/24 04:04 Labs: Abnormal Lab Results - Last 24 Hours (Table) 09/18/24 09/18/24 09/18/24 Range/Units 04:35 04:35 11:22 RBC 3.70 L (4.10-5.20) X 10*6/uL Hgb 11.7 L (12.0-15.0) g/dL MCV 103.0 H (80.0-97.0) FL MCHC 30.7 L (32.0-37.0) g/dL RDW 15.9 H (11.5-14.5) % Sodium 133 L (135-145) mmol/L Carbon Dioxide 17.8 L (21.6-31.8) mmol/L Anion Gap 19.20 H (4.00-12.00) mmol/L BUN 29.2 H (9.0-27.0) mg/dL Creatinine 4.0 H (0.6-1.5) mg/dL Est GFR (CKD-EPI) 12 L (>=60) BUN/Creatinine Ratio 7.30 L (12.00-20.00) Ratio Glucose 446 H (70-110) mg/dL POC Glucose (mg/dL) 255 H (70-110) mg/dL Calcium 7.8 L (8.7-10.3) mg/dL 09/18/24 09/18/24 09/18/24 Range/Units 14:40 16:19 20:13 RBC (4.10-5.20) X 10*6/uL Hgb (12.0-15.0) g/dL MCV (80.0-97.0) FL MCHC (32.0-37.0) g/dL RDW (11.5-14.5) % Sodium (135-145) mmol/L Carbon Dioxide (21.6-31.8) mmol/L Anion Gap (4.00-12.00) mmol/L BUN (9.0-27.0) mg/dL Creatinine (0.6-1.5) mg/dL Est GFR (CKD-EPI) (>=60) BUN/Creatinine Ratio (12.00-20.00) Ratio Glucose (70-110) mg/dL POC Glucose (mg/dL) 363 H 373 H 205 H (70-110) mg/dL Calcium (8.7-10.3) mg/dL 09/19/24 Range/Units 06:18 RBC (4.10-5.20) X 10*6/uL Hgb (12.0-15.0) g/dL MCV (80.0-97.0) FL MCHC (32.0-37.0) g/dL RDW (11.5-14.5) % Sodium (135-145) mmol/L Carbon Dioxide (21.6-31.8) mmol/L Anion Gap (4.00-12.00) mmol/L BUN (9.0-27.0) mg/dL Creatinine (0.6-1.5) mg/dL Est GFR (CKD-EPI) (>=60) BUN/Creatinine Ratio (12.00-20.00) Ratio Glucose (70-110) mg/dL POC Glucose (mg/dL) 67 L (70-110) mg/dL Calcium (8.7-10.3) mg/dL Microbiology - Last 24 Hours (Table) 09/13/24 22:50 Blood Culture - Final Blood
--- NOTE | 2024-09-19 13:21 | P.PN ---
Subjective Patient is seen for follow-up for end-stage disease. Patient will be discharged with [facility] with plans for daily antibiotics for about 10 days post discharge. No significant complaints today. Objective - Vital Signs Vital signs: Vital Signs Temp 97.6 F 09/19/24 07:27 Pulse 74 09/19/24 07:27 Resp 15 09/19/24 07:27 BP 117/69 09/19/24 07:27 Pulse Ox 93 L 09/19/24 07:27 FiO2 Intake & Output 09/18/24 09/19/24 09/19/24 18:59 06:59 18:59 Intake Total 400 240 Output Total 4600 300 Balance -4200 -60 Weight 60 kg Intake: Oral 240 Hemodialysis 400 Output: Urine 200 300 Hemodialysis 2400 Hemodialysis Net Amount 2000 Other: Voiding Method Indwelling Catheter # Bowel Movements 1 - Exam Patient is awake, comfortable, no acute distress. Examination of lower extremity shows no significant edema ADMISSIONS DIRECTOR exam grossly intact - Labs CBC & Chem 7: 09/19/24 04:04 09/19/24 04:04 Labs: Abnormal Lab Results - Last 24 Hours (Table) 09/18/24 09/18/24 09/18/24 Range/Units 14:40 16:19 20:13 RBC (4.10-5.20) X 10*6/uL Hgb (12.0-15.0) g/dL MCV (80.0-97.0) FL MCH (27.0-32.0) pg MCHC (32.0-37.0) g/dL RDW (11.5-14.5) % Creatinine (0.6-1.5) mg/dL Est GFR (CKD-EPI) (>=60) BUN/Creatinine Ratio (12.00-20.00) Ratio Glucose (70-110) mg/dL POC Glucose (mg/dL) 363 H 373 H 205 H (70-110) mg/dL Calcium (8.7-10.3) mg/dL 09/19/24 09/19/24 09/19/24 Range/Units 04:04 04:04 06:18 RBC 3.59 L (4.10-5.20) X 10*6/uL Hgb 11.7 L (12.0-15.0) g/dL MCV 103.6 H (80.0-97.0) FL MCH 32.6 H (27.0-32.0) pg MCHC 31.5 L (32.0-37.0) g/dL RDW 15.8 H (11.5-14.5) % Creatinine 2.9 H (0.6-1.5) mg/dL Est GFR (CKD-EPI) 18 L (>=60) BUN/Creatinine Ratio 5.97 L (12.00-20.00) Ratio Glucose 38 A* (70-110) mg/dL POC Glucose (mg/dL) 67 L (70-110) mg/dL Calcium 8.0 L (8.7-10.3) mg/dL 09/19/24 Range/Units 11:34 RBC (4.10-5.20) X 10*6/uL Hgb (12.0-15.0) g/dL MCV (80.0-97.0) FL MCH (27.0-32.0) pg MCHC (32.0-37.0) g/dL RDW (11.5-14.5) % Creatinine (0.6-1.5) mg/dL Est GFR (CKD-EPI) (>=60) BUN/Creatinine Ratio (12.00-20.00) Ratio Glucose (70-110) mg/dL POC Glucose (mg/dL) 233 H (70-110) mg/dL Calcium (8.7-10.3) mg/dL Microbiology - Last 24 Hours (Table) 09/13/24 22:50 Blood Culture - Final Blood Assessment and Plan Assessment: 1. ESRD on HD MWF 2. Abdominal pain possibly related to UTI. CT howed emphysematous cystitis. 3. UTI, culture grew E. coli ESBL 4. Anemia with chronic kidney disease 5. HTN with CKD 6. CKD mineral bone disorder Plan: Hemodialysis IN A.M. DC [place] catheter [facility] for antibiotics for about 10 days post discharge
[2024-09-19 13:53] VITALS: BMI 20.1
--- NOTE | 2024-09-19 15:33 | P.PN ---
Subjective Progress Note Date: 09/19/24 Principal diagnosis: Reason for follow-up is emphysematous cystitis Patient is a 59-year-old female with a past medical history significant for coronary artery disease CVA TIA diabetes mellitus fibromyalgia hypertension hyperlipidemia patient did have a history of end-stage renal disease on hemodialysis since March 2024 through the right subclavian permacatheter, patient still makes urine presenting to the hospital with acute onset of lower abdominal pain apparently has some blood in the urine CT was suggestive of emphysematous cystitis and possible microperforation prompted this consultation. On today's evaluation that is 09/19/2024,the patient remains to be afebrile, patient is on 2 L nasal cannula supplemental oxygen and denies any shortness of breath no chest pain or cough.Patient denies having any nausea or vomiting, no abdominal pain slightly decreased in intensity. Patient white count is 4.88, creatinine is 2.9 blood culture negative Objective - Vital Signs Vital signs: Vital Signs Temp 97.6 F 09/19/24 07:27 Pulse 74 09/19/24 07:27 Resp 15 09/19/24 07:27 BP 117/69 09/19/24 07:27 Pulse Ox 93 L 09/19/24 07:27 FiO2 Intake & Output 09/18/24 09/19/24 09/19/24 18:59 06:59 18:59 Intake Total 400 240 Output Total 4600 300 Balance -4200 -60 Weight 60 kg Intake: Oral 240 Hemodialysis 400 Output: Urine 200 300 Hemodialysis 2400 Hemodialysis Net Amount 2000 Other: Voiding Method Indwelling Catheter # Bowel Movements 1 - Exam GENERAL DESCRIPTION: Middle-age female up in bed in no distress RESPIRATORY SYSTEM: Unlabored breathing , decreased breath sounds at bases HEART: S1 S2 regular rate and rhythm , ABDOMEN: Soft , no tenderness EXTREMITIES: No edema feet - Labs CBC & Chem 7: 09/19/24 04:04 09/19/24 04:04 Labs: Abnormal Lab Results - Last 24 Hours (Table) 09/18/24 09/18/24 09/18/24 Range/Units 14:40 16:19 20:13 RBC (4.10-5.20) X 10*6/uL Hgb (12.0-15.0) g/dL MCV (80.0-97.0) FL MCH (27.0-32.0) pg MCHC (32.0-37.0) g/dL RDW (11.5-14.5) % Creatinine (0.6-1.5) mg/dL Est GFR (CKD-EPI) (>=60) BUN/Creatinine Ratio (12.00-20.00) Ratio Glucose (70-110) mg/dL POC Glucose (mg/dL) 363 H 373 H 205 H (70-110) mg/dL Calcium (8.7-10.3) mg/dL 09/19/24 09/19/24 09/19/24 Range/Units 04:04 04:04 06:18 RBC 3.59 L (4.10-5.20) X 10*6/uL Hgb 11.7 L (12.0-15.0) g/dL MCV 103.6 H (80.0-97.0) FL MCH 32.6 H (27.0-32.0) pg MCHC 31.5 L (32.0-37.0) g/dL RDW 15.8 H (11.5-14.5) % Creatinine 2.9 H (0.6-1.5) mg/dL Est GFR (CKD-EPI) 18 L (>=60) BUN/Creatinine Ratio 5.97 L (12.00-20.00) Ratio Glucose 38 A* (70-110) mg/dL POC Glucose (mg/dL) 67 L (70-110) mg/dL Calcium 8.0 L (8.7-10.3) mg/dL 09/19/24 Range/Units 11:34 RBC (4.10-5.20) X 10*6/uL Hgb (12.0-15.0) g/dL MCV (80.0-97.0) FL MCH (27.0-32.0) pg MCHC (32.0-37.0) g/dL RDW (11.5-14.5) % Creatinine (0.6-1.5) mg/dL Est GFR (CKD-EPI) (>=60) BUN/Creatinine Ratio (12.00-20.00) Ratio Glucose (70-110) mg/dL POC Glucose (mg/dL) 233 H (70-110) mg/dL Calcium (8.7-10.3) mg/dL Microbiology - Last 24 Hours (Table) 09/13/24 22:50 Blood Culture - Final Blood Assessment and Plan (1) Emphysematous cystitis Current Visit: Yes Status: Acute Code(s): N30.80 - OTHER CYSTITIS WITHOUT HEMATURIA SNOMED Code(s): 73484077 (2) Infection due to ESBL-producing Escherichia coli Current Visit: Yes Status: Acute Code(s): A49.8 - OTHER BACTERIAL INFECTIONS OF UNSPECIFIED SITE; Z16.12 - EXTENDED SPECTRUM BETA LACTAMASE (ESBL) RESISTANCE SNOMED Code(s): 084636100 Plan: 1patient presented to hospital with acute abdominal pain which has been mostly suprapubic area patient makes small amount of urine and noticed to have some blood with significant abnormality seen on the CT concerning for emphysematous cystitis and possible microperforation versus fistula. 2patient urine has been finalized with ESBL E. coli blood culture have been negative so far 3patient did have clinical improvement, patient to continue ertapenem 500 mg daily for another 10 days to finish her course of therapy Dictation was produced using [employer] dictation software. please excuse any grammatical, word or spelling errors. Time with Patient: Less than 30
[2024-09-19 16:19] LABS: Glucose,Whole Blood 166 mg/dL (70-110)
[2024-09-19 19:45] LABS: Glucose,Whole Blood 232 mg/dL (70-110)
[2024-09-19] MEDS ORDERED: HYDROmorphone 2 MG TAB PO PRN (21:26)
[2024-09-19 23:38] LABS: Glucose,Whole Blood 221 mg/dL (70-110)
[2024-09-19] MEDS: HYDROcodone/APAP 5-325MG 1 EACH TAB PO PRN (23:41)
[2024-09-20] MEDS: LOPERAMIDE 2 MG CAP PO STA (03:33)
[2024-09-20 03:38] LABS: Glucose,Whole Blood 258 mg/dL (70-110)
[2024-09-20] MEDS ORDERED: LOPERAMIDE 2 MG CAP PO PRN (06:00)
[2024-09-20 06:15] LABS: Glucose,Whole Blood 354 mg/dL (70-110)
[2024-09-20] MEDS: INSULIN DETEMIR (LEVEMIR) 100 UNIT/ML SYR SQ SCH (06:37)
[2024-09-20 07:40] VITALS: RESP 18
[2024-09-20 08:46] LABS: BUN/Creat Ratio 7.72 Ratio (12.00-20.00); Blood Urea Nitrogen 24.7 mg/dL (9.0-27.0); Carbon Dioxide 20.9 mmol/L (21.6-31.8); Chloride 102 mmol/L (96-109); Glucose 314 mg/dL (70-110); Potassium 4.2 mmol/L (3.5-5.5); Sodium 137 mmol/L (135-145)
[2024-09-20] MEDS: INSULIN DETEMIR (LEVEMIR) 100 UNIT/ML SYR SQ ONE (09:38)
[2024-09-20 09:40] LABS: Basophils # (A) 0.04 X 10*3/uL (0.00-0.10); Basophils % (A) 0.8 %; Eosinophils # (A) 0.24 X 10*3/uL (0.04-0.35); Eosinophils % (A) 4.7 %; HCT 38.1 % (37.2-46.3); HGB 11.9 g/dL (12.0-15.0); Lymphocytes # (A) 1.28 X 10*3/uL (0.90-5.00); Lymphocytes % (A) 25.3 %; MCH 31.8 pg (27.0-32.0); MCHC 31.2 g/dL (32.0-37.0); MCV 101.9 FL (80.0-97.0); Mean Platelet Volume 10.4 FL (9.5-12.2); Monocytes # (A) 0.51 X 10*3/uL (0.20-1.00); Monocytes % (A) 10.1 %; NRBC Per 100 WBC 0 X 10*3/uL (0.00-0.01); Neutrophils # (A) 2.98 X 10*3/uL (1.80-7.70); Neutrophils % (A) 58.9 %; Platelet Count 217 X 10*3/uL (140-440); RBC 3.74 X 10*6/uL (4.10-5.20); RDW 15.9 % (11.5-14.5); WBC 5.06 X 10*3/uL (4.50-10.00)
[2024-09-20 11:39] LABS: Glucose,Whole Blood 191 mg/dL (70-110)
--- NOTE | 2024-09-20 13:06 | P.DS ---
Providers Date of admission: 09/13/24 22:44 Expected date of discharge: 09/20/24 Attending physician: John Varela MD Consults: 09/13/24 22:44 Consult Physician Urgent Consulting Provider: Wiley Blood Consult Reason/Comments: Emphysematous cystitis with microperforation Do you want consulting provider notified?: Yes, Notify in am Consult Physician Urgent Consulting Provider: Marcelino Davies Consult Reason/Comments: ESRD, hemodialysis Do you want consulting provider notified?: Yes, Notify in am 09/14/24 09:54 Consult Physician Routine Consulting Provider: Hilda Sultana Consult Reason/Comments: Emphysematous cystitis with microperforations Do you want consulting provider notified?: Yes Primary care physician: Papi Saavedra [place] Hospital Course: Hospital Course: Patient is a 59-year-old female with past medical history of coronary artery disease with ischemic cardiomyopathy(underwent CABG X 4 in 2019) with left ventricular ejection fraction of 15 to 20%, COPD, ESRD on dialysis MWF via R chest catheter, diabetes mellitus, fibromyalgia, GERD, hyperlipidemia, hypertension, and osteoarthritis presented to the emergency department with abdominal pain. Vitals on admission temperature 97.7, pulse rate 80, respiratory rate 22, blood pressure 130/75, O2 sat of 98% on nasal cannula at 3 L/min Imaging in the ED: -Abdomen/pelvis CT shows emphysematous cystitis with findings concerning for microperforation and surrounding small foci of pneumoperitoneum. Evaluation for a fistulization is limited on the study with lack of oral or rectal contrast. Also showed nonspecific hepatomegaly. And scattered patchy attenuation and in the right lung may related to an acute infectious/inflammatory process. Bilateral pleural effusions and diffuse anasarca is concerning for third spacing versus volume overload. Labs on admission show WBC 9.8, hemoglobin 12.3, hematocrit 40, platelet 280, MCV 104.7, sodium 130, potassium 4.5, chloride 94, carbon dioxide 27, BUN 19, creatinine 1.6, glucose 263, lactic acid 1.7, AST 46, ALT 23, alkaline phosphatase 196, lipase 21 UA shows 3+ protein, 3+ glucose, trace ketones, large blood, negative for nitr ites, large leukocyte esterase, 87 RBC, WBC of greater than 182 Patient was admitted for the evaluation of her cystitis. Urology was consulted, patient was initiated on IV antibiotics, urine and blood cultures ordered, and nephrology was consulted for ESRD. IV Unasyn was initiated and then transition to Zosyn IVPB. Blood cultures had no growth after 5 days. Urine culture was positive for ESBL and infectious disease was consulted. Patient was transitioned to IV ertapenem with a 2-week course. Midline placement was ordered and successfully placed. Urology recommended formal evaluation of her enterovesicular fistula once infection has resolved. Patient symptoms improved throughout hospital stay. Patient had multiple bouts of uncontrolled hyperglycemia and hypoglycemia which was managed with daily adjustment of insulin dosing of Levemir. Patient is cleared for discharge today to SNF for continuation of IV antibiotics for 10 more days. Loperamide, insulin sliding scale, and Levemir 10 units per also prescribed. Lantus was discontinued. Patient was advised to follow-up with urology in 3 weeks for cystoscopy, with their primary care physician, and infectious disease on an outpatient basis. Patient needs further optimization for heart failure therapy. Final Diagnosis: #. Emphysematous cystitis with microperforations, improving #. Insulin-dependent diabetes mellitus #. Hyponatremia, stable #. Anion gap metabolic acidosis secondary to renal disease, resolved #. End-stage renal disease on hemodialysis #. Anemia of chronic disease #. Hyperlipidemia #. Hypothyroid #. GERD #. CAD #. COPD not in acute exacerbation #. Congestive heart failure with left ventricular ejection fraction of 15 to 20% on echo 08/28/2024 Physical Exam: Physical examination: Vital signs reviewed General: non toxic, no distress, on room air Derm: no unusual rashes/lesions, warm Head: atraumatic, normocephalic, symmetric Eyes: EOMI, anicteric sclera, pupils equal round reactive to light ENT: Nose and ears atraumatic Neck: No cervical lymphadenopathy, trachea midline, supple Mouth: no lip lesion, mucus membranes moist Cardiovascular: S1S2 reg, no murmur Lungs: CTA bilateral, no rhonchi, no rales, no accessory muscle use Abdominal: soft, nontender to palpation, no guarding, mild suprapubic pain on deep palpation Ext: muscle strength 5 out of 5 in all 4 extremities grossly, no gross muscle atrophy, no contractures, positive dorsalis pedis pulse bilateral, no edema Neuro: CN II-XI grossly intact, no gross focal neuro deficits Psych: Alert and oriented x3, appropriate affect and mood A total of 38 minutes of time were spent preparing this complex discharge summary. Patient was discharged on 09/20/2024 at 936. I have seen and evaluated the patient today. Discussed with the resident and agree with the residents finding and plan as documented in the resident's note. Changes highlighted in blue font. Plan - Discharge Summary Discharge Rx Participant: Yes New Discharge Prescriptions: New Loperamide [Imodium] 2 mg PO QID PRN cap PRN Reason: Diarrhea INSULIN ASPART (NovoLOG) [NovoLOG (formulary)] 0 unit SQ ACHS #0 each Ertapenem [INVanz] 0.5 gm IVPB Q24H #12 each Insulin Detemir (Levemir) [Levemir] 10 unit SQ DAILY@0700 each Continue Ondansetron [Zofran] 4 mg PO Q8H PRN PRN Reason: Nausea And Vomiting traZODone HCL [Desyrel] 50 mg PO HS Aspirin EC [Ecotrin Low Dose] 81 mg PO DAILY Atorvastatin [Lipitor] 40 mg PO HS Acetaminophen Tab [Tylenol] 650 mg PO Q6H PRN PRN Reason: Fever And/ Or Pain Torsemide [Demadex] 40 mg PO DAILY #30 tab Metoprolol Succinate (ER) [Toprol XL] 25 mg PO DAILY #30 tab Sacubitril/Valsartan [Entresto 24 mg-26 mg Tablet] 1 each PO BID 30 Days #60 tab Levothyroxine Sodium [Synthroid] 175 mcg PO DAILY Ipratropium-Albuterol Nebulize [Duoneb 0.5 mg-3 mg/3 ml Soln] 3 ml INHALATION RT-Q2H PRN each PRN Reason: Shortness Of Breath Or Wheezing Clopidogrel [Plavix] 75 mg PO DAILY tab Pantoprazole [Protonix] 40 mg PO AC-BRKFST tab Polyvinyl Alcohol/Povidone [Clear Eyes Natural Tears Drop] 1 drop BOTH EYES QID PRN PRN Reason: Dry Eye(S) Ipratropium [place] [Atrovent Hfa] 2 puff INHALATION RT-Q6H PRN PRN Reason: Shortness Of Breath Fluticasone/Umeclidin/Vilanter [Trelegy Ellipta 100-62.5-25] 1 puff INHALATION RT-DAILY Insulin Aspart [NovoLOG Flexpen] See Protocol SQ AC-TID Discontinued Insulin Glargine,Hum.rec.anlog [Lantus Solostar Pen] 10 - 12 units SQ DAILY Discharge Medication List Levothyroxine Sodium [Synthroid] 175 mcg PO DAILY 02/02/22 [History] Ondansetron [Zofran] 4 mg PO Q8H PRN 02/06/24 [History] traZODone HCL [Desyrel] 50 mg PO HS 02/09/24 [History] Clopidogrel [Plavix] 75 mg PO DAILY tab 03/18/24 [Rx] Ipratropium-Albuterol Nebulize [Duoneb 0.5 mg-3 mg/3 ml Soln] 3 ml INHALATION RT-Q2H PRN each 03/18/24 [Rx] Pantoprazole [Protonix] 40 mg PO AC-BRKFST tab 03/18/24 [Rx] Acetaminophen Tab [Tylenol] 650 mg PO Q6H PRN 06/30/24 [History] Aspirin EC [Ecotrin Low Dose] 81 mg PO DAILY 06/30/24 [History] Atorvastatin [Lipitor] 40 mg PO HS 06/30/24 [History] Fluticasone/Umeclidin/Vilanter [Trelegy Ellipta 100-62.5-25] 1 puff INHALATION RT-DAILY 06/30/24 [History] Ipratropium [place] [Atrovent Hfa] 2 puff INHALATION RT-Q6H PRN 06/30/24 [History] Polyvinyl Alcohol/Povidone [Clear Eyes Natural Tears Drop] 1 drop BOTH EYES QID PRN 06/30/24 [History] Metoprolol Succinate (ER) [Toprol XL] 25 mg PO DAILY #30 tab 07/05/24 [Rx] Torsemide [Demadex] 40 mg PO DAILY #30 tab 07/05/24 [Rx] Insulin Aspart [NovoLOG Flexpen] See Protocol SQ AC-TID 08/26/24 [History] Sacubitril/Valsartan [Entresto 24 mg-26 mg Tablet] 1 each PO BID 30 Days #60 tab 08/29/24 [Rx] Ertapenem [INVanz] 0.5 gm IVPB Q24H #12 each 09/17/24 [Rx] INSULIN ASPART (NovoLOG) [NovoLOG (formulary)] 0 unit SQ ACHS #0 each 09/20/24 [Rx] Insulin Detemir (Levemir) [Levemir] 10 unit SQ DAILY@0700 each 09/20/24 [Rx] Loperamide [Imodium] 2 mg PO QID PRN cap 09/20/24 [Rx] Follow up Appointment(s)/Referral(s): Wiley Blood MD [STAFF PHYSICIAN] - 10/11/24 2:00 pm Papi Saavedra DO [Primary Care Provider] - 1-2 days Hilda Sultana MD [STAFF PHYSICIAN] - 1 Week (Office is not answering at time of discharge. Please call for follow-up appointment. ) Patient Instructions/Handouts: Urinary Tract Infection in Women (DC) Activity/Diet/Wound Care/Special Instructions: F/U with Dr. Blood in 3 weeks for office cystoscopy. Follow up with PCP. Follow up with infectious disease (Dr. Sultana) Discharge Disposition: TRANSFER TO SNF/ECF
--- NOTE | 2024-09-20 15:09 | P.PN ---
Subjective Progress Note Date: 09/20/24 Principal diagnosis: Reason for follow-up is emphysematous cystitis Patient is a 59-year-old female with a past medical history significant for coronary artery disease CVA TIA diabetes mellitus fibromyalgia hypertension hyperlipidemia patient did have a history of end-stage renal disease on hemodialysis since March 2024 through the right subclavian permacatheter, patient still makes urine presenting to the hospital with acute onset of lower abdominal pain apparently has some blood in the urine CT was suggestive of emphysematous cystitis and possible microperforation prompted this consultation. On today's evaluation that is 09/20/2024, the patient continues to be afebrile, the patient is on room air and breathing comfortably, the Pt denies having any chest pain or cough, the patient lower abdominal pain has decreased in intensity no nausea no vomiting feeling better. Patient white count is 5.06, creatinine 3.2 blood culture has been negative ursing staff Objective - Vital Signs Vital signs: Vital Signs Temp 97.8 F 09/20/24 07:39 Pulse 67 09/20/24 07:39 Resp 18 09/20/24 07:39 BP 159/79 09/20/24 07:39 Pulse Ox 93 L 09/20/24 07:39 FiO2 Intake & Output 09/19/24 09/20/24 09/20/24 18:59 06:59 18:59 Intake Total 450 540 Output Total 101 Balance 349 540 Weight 60 kg 61 kg Intake: Oral 450 540 Output: Urine 100 Stool 1 Other: Voiding Method Indwelling Catheter Toilet # Voids 5 - Exam GENERAL DESCRIPTION: Middle-age female up in bed in no distress RESPIRATORY SYSTEM: Unlabored breathing , decreased breath sounds at bases HEART: S1 S2 regular rate and rhythm , ABDOMEN: Soft , no tenderness EXTREMITIES: No edema feet - Labs CBC & Chem 7: 09/20/24 04:03 09/20/24 03:57 Labs: Abnormal Lab Results - Last 24 Hours (Table) 09/19/24 09/19/24 09/19/24 Range/Units 04:04 11:34 16:16 RBC (4.10-5.20) X 10*6/uL Hgb (12.0-15.0) g/dL MCV (80.0-97.0) FL MCHC (32.0-37.0) g/dL RDW (11.5-14.5) % Carbon Dioxide (21.6-31.8) mmol/L Anion Gap (4.00-12.00) mmol/L Creatinine 2.9 H (0.6-1.5) mg/dL Est GFR (CKD-EPI) 18 L (>=60) BUN/Creatinine Ratio 5.97 L (12.00-20.00) Ratio Glucose 38 A* (70-110) mg/dL POC Glucose (mg/dL) 233 H 166 H (70-110) mg/dL Calcium 8.0 L (8.7-10.3) mg/dL 09/19/24 09/19/24 09/20/24 Range/Units 19:44 23:37 03:37 RBC (4.10-5.20) X 10*6/uL Hgb (12.0-15.0) g/dL MCV (80.0-97.0) FL MCHC (32.0-37.0) g/dL RDW (11.5-14.5) % Carbon Dioxide (21.6-31.8) mmol/L Anion Gap (4.00-12.00) mmol/L Creatinine (0.6-1.5) mg/dL Est GFR (CKD-EPI) (>=60) BUN/Creatinine Ratio (12.00-20.00) Ratio Glucose (70-110) mg/dL POC Glucose (mg/dL) 232 H 221 H 258 H (70-110) mg/dL Calcium (8.7-10.3) mg/dL 09/20/24 09/20/24 09/20/24 Range/Units 03:57 04:03 06:14 RBC 3.74 L (4.10-5.20) X 10*6/uL Hgb 11.9 L (12.0-15.0) g/dL MCV 101.9 H (80.0-97.0) FL MCHC 31.2 L (32.0-37.0) g/dL RDW 15.9 H (11.5-14.5) % Carbon Dioxide 20.9 L (21.6-31.8) mmol/L Anion Gap 14.10 H (4.00-12.00) mmol/L Creatinine 3.2 H (0.6-1.5) mg/dL Est GFR (CKD-EPI) 16 L (>=60) BUN/Creatinine Ratio 7.72 L (12.00-20.00) Ratio Glucose 314 H (70-110) mg/dL POC Glucose (mg/dL) 354 H (70-110) mg/dL Calcium 8.0 L (8.7-10.3) mg/dL Assessment and Plan (1) Emphysematous cystitis Current Visit: Yes Status: Acute Code(s): N30.80 - OTHER CYSTITIS WITHOUT HEMATURIA SNOMED Code(s): 68630891 (2) Infection due to ESBL-producing Escherichia coli Current Visit: Yes Status: Acute Code(s): A49.8 - OTHER BACTERIAL INFECTIONS OF UNSPECIFIED SITE; Z16.12 - EXTENDED SPECTRUM BETA LACTAMASE (ESBL) RESISTANCE SNOMED Code(s): 206950475 Plan: 1patient presented to hospital with acute abdominal pain which has been mostly suprapubic area patient makes small amount of urine and noticed to have some blood with significant abnormality seen on the CT concerning for emphysematous cystitis and possible microperforation versus fistula. 2patient urine has been finalized with ESBL E. coli blood culture have been negative so far 3patient did have clinical improvement as far as her symptoms are concerned, patient to continue ertapenem 500 mg daily for another 9 days to finish her course of therapy and a close outpatient follow-up with questions answered Dictation was produced using [employer]wite[employer] software. please excuse any grammatical, word or spelling errors. Time with Patient: Less than 30
[2024-09-20 16:44] LABS: Glucose,Whole Blood 82 mg/dL (70-110)
[2024-09-20 17:23] VITALS: BP 135/77; PULSE 76; TEMP 98.4
--- NOTE | 2024-09-20 19:03 | P.PN ---
Subjective Patient is seen for follow-up for end-stage disease. S/p Medline with plans for daily antibiotics for about 10 days post discharge. No significant complaints today. Objective - Vital Signs Vital signs: Vital Signs Temp 98.4 F 09/20/24 17:21 Pulse 76 09/20/24 17:21 Resp 18 09/20/24 17:21 BP 135/77 09/20/24 17:21 Pulse Ox 92 L 09/20/24 14:00 FiO2 Intake & Output 09/19/24 09/20/24 09/20/24 18:59 06:59 18:59 Intake Total 450 540 900 Output Total 101 4500 Balance 349 540 -3600 Weight 60 kg 61 kg Intake: Oral 450 540 400 Hemodialysis 500 Output: Urine 100 Stool 1 Hemodialysis 2500 Hemodialysis Net Amount 2000 Other: Voiding Method Indwelling Catheter Toilet Toilet # Voids 5 - Exam Patient is awake, comfortable, no acute distress. Examination of lower extremity shows no significant edema SOAP CHIPPER exam grossly intact - Labs CBC & Chem 7: 09/20/24 04:03 09/20/24 03:57 Labs: Abnormal Lab Results - Last 24 Hours (Table) 09/19/24 09/19/24 09/20/24 Range/Units 19:44 23:37 03:37 RBC (4.10-5.20) X 10*6/uL Hgb (12.0-15.0) g/dL MCV (80.0-97.0) FL MCHC (32.0-37.0) g/dL RDW (11.5-14.5) % Carbon Dioxide (21.6-31.8) mmol/L Anion Gap (4.00-12.00) mmol/L Creatinine (0.6-1.5) mg/dL Est GFR (CKD-EPI) (>=60) BUN/Creatinine Ratio (12.00-20.00) Ratio Glucose (70-110) mg/dL POC Glucose (mg/dL) 232 H 221 H 258 H (70-110) mg/dL Calcium (8.7-10.3) mg/dL 09/20/24 09/20/24 09/20/24 Range/Units 03:57 04:03 06:14 RBC 3.74 L (4.10-5.20) X 10*6/uL Hgb 11.9 L (12.0-15.0) g/dL MCV 101.9 H (80.0-97.0) FL MCHC 31.2 L (32.0-37.0) g/dL RDW 15.9 H (11.5-14.5) % Carbon Dioxide 20.9 L (21.6-31.8) mmol/L Anion Gap 14.10 H (4.00-12.00) mmol/L Creatinine 3.2 H (0.6-1.5) mg/dL Est GFR (CKD-EPI) 16 L (>=60) BUN/Creatinine Ratio 7.72 L (12.00-20.00) Ratio Glucose 314 H (70-110) mg/dL POC Glucose (mg/dL) 354 H (70-110) mg/dL Calcium 8.0 L (8.7-10.3) mg/dL // Range/Units 11:37 RBC (4.10-5.20) X 10*6/uL Hgb (12.0-15.0) g/dL MCV (80.0-97.0) FL MCHC (32.0-37.0) g/dL RDW (11.5-14.5) % Carbon Dioxide (21.6-31.8) mmol/L Anion Gap (4.00-12.00) mmol/L Creatinine (0.6-1.5) mg/dL Est GFR (CKD-EPI) (>=60) BUN/Creatinine Ratio (12.00-20.00) Ratio Glucose (70-110) mg/dL POC Glucose (mg/dL) 191 H (70-110) mg/dL Calcium (8.7-10.3) mg/dL Assessment and Plan Assessment: 1. ESRD on HD MWF 2. Abdominal pain possibly related to UTI. CT howed emphysematous cystitis. 3. UTI, culture grew E. coli ESBL 4. Anemia with chronic kidney disease 5. HTN with CKD 6. CKD mineral bone disorder Plan: Hemodialysis today. [place] catheter has been removed.
[2024-09-21] MEDS ORDERED: INSULIN DETEMIR (LEVEMIR) 100 UNIT/ML SYR SQ SCH (07:00)
== END 2024-09-20 18:25 | DRG 689 ==
LOC: EC 19:35 → 4SSUR 22:44
PROVIDERS: ADMIT Internal Medicine; ATTEND Internal Medicine
PROC: 5A1D70Z Performance of Urinary Filtration, Intermittent, Less than 6 Hours Per Day (ICD-10-PCS; principal; 2024-09-16)
DX: N30.81 Other cystitis with hematuria (principal); N18.6 End stage renal disease; E87.1 Hypo-osmolality and hyponatremia; E87.20 Acidosis, unspecified; I13.2 Hypertensive heart and chronic kidney disease with heart failure and with stage 5 chronic kidney disease, or end stage renal disease; Z16.12 Extended spectrum beta lactamase (ESBL) resistance; N32.1 Vesicointestinal fistula; D63.1 Anemia in chronic kidney disease; B96.20 Unspecified Escherichia coli [E. coli] as the cause of diseases classified elsewhere; E03.9 Hypothyroidism, unspecified; E11.22 Type 2 diabetes mellitus with diabetic chronic kidney disease; E11.51 Type 2 diabetes mellitus with diabetic peripheral angiopathy without gangrene; E78.5 Hyperlipidemia, unspecified; E86.1 Hypovolemia; E11.65 Type 2 diabetes mellitus with hyperglycemia; F17.200 Nicotine dependence, unspecified, uncomplicated; I25.5 Ischemic cardiomyopathy; I25.10 Atherosclerotic heart disease of native coronary artery without angina pectoris; I25.2 Old myocardial infarction; J44.9 Chronic obstructive pulmonary disease, unspecified; K21.9 Gastro-esophageal reflux disease without esophagitis; M79.7 Fibromyalgia; I50.9 Heart failure, unspecified; M89.8X9 Other specified disorders of bone, unspecified site; Z79.02 Long term (current) use of antithrombotics/antiplatelets; Z79.4 Long term (current) use of insulin; Z79.82 Long term (current) use of aspirin; Z79.890 Hormone replacement therapy; Z79.899 Other long term (current) drug therapy; Z86.73 Personal history of transient ischemic attack (TIA), and cerebral infarction without residual deficits; Z87.440 Personal history of urinary (tract) infections; Z95.1 Presence of aortocoronary bypass graft; Z99.2 Dependence on renal dialysis
CPT/HCPCS: 36410; 36415; 51798; 74176; 76937; 80048; 80053; 81001; 82150; 83036; 83605; 83690; 85025; 87040; 87077; 87086; 87186; 87324; 90935; 94760; 96365; 96375; 96376; 99285

== ENCOUNTER 2024-10-18 07:30 | Observation (INO) | payer MEDICARE, OTHER ==
[2024-10-18 07:34] LABS: Glucose,Whole Blood 280 mg/dL (70-110)
[2024-10-18] MEDS: DIPHENOX-ATROP 2.5-0.025 MG 1 EACH TAB PO STA (08:06)
--- NOTE | 2024-10-18 08:18 | ED ---
General Adult HPI - General Chief complaint: Shortness of Breath Stated complaint: DIANA Time Seen by Provider: 10/18/24 07:35 Source: patient, EMS, RN notes reviewed, old records reviewed Mode of arrival: EMS - History of Present Illness Initial comments: This is a 59-year-old female who presents to the emergency department with a past medical history significant for dialysis and has a history of COPD and bypass surgery. Patient states she missed Monday's dialysis because she was having diarrhea and continues to have diarrhea. Patient states she was on antibiotics recently. Patient will give us a stool sample if she has 1 here. Patient was post go to dialysis today at 11:00 but she came here because she was having difficulty breathing and she was more short of breath than her baseline. Patient did not have any chest pain palpitations. Patient denies fever chills or cough. Patient [place] any congestion. Patient has abdominal pain Patient denies any nausea or vomiting. - Related Data Home Medications Medication Instructions Recorded Confirmed Levothyroxine Sodium [Synthroid] 175 mcg PO DAILY 02/02/22 09/14/24 Ondansetron [Zofran] 4 mg PO Q8H PRN 02/06/24 09/14/24 traZODone HCL [Desyrel] 50 mg PO HS 02/09/24 09/14/24 Acetaminophen Tab [Tylenol] 650 mg PO Q6H PRN 06/30/24 09/14/24 Aspirin EC [Ecotrin Low Dose] 81 mg PO DAILY 06/30/24 09/14/24 Atorvastatin [Lipitor] 40 mg PO HS 06/30/24 09/14/24 Fluticasone/Umeclidin/Vilanter 1 puff INHALATION RT-DAILY 06/30/24 09/14/24 [Trelegary Ellipta 100-62.5-25] Ipratropium [place] [Atrovent Hfa] 2 puff INHALATION RT-Q6H PRN 06/30/24 09/14/24 Polyvinyl Alcohol/Povidone [Clear 1 drop BOTH EYES QID PRN 06/30/24 09/14/24 Eyes Natural Tears Drop] Insulin Aspart [NovoLOG Flexpen] See Protocol SQ AC-TID 08/26/24 09/14/24 Previous Rx's Medication Instructions Recorded Clopidogrel [Plavix] 75 mg PO DAILY tab 03/18/24 Ipratropium-Albuterol Nebulize 3 ml INHALATION RT-Q2H PRN each 03/18/24 [Duoneb 0.5 mg-3 mg/3 ml Soln] Pantoprazole [Protonix] 40 mg PO AC-BRKFST tab 03/18/24 Metoprolol Succinate (ER) [Toprol 25 mg PO DAILY #30 tab 07/05/24 XL] Torsemide [Demadex] 40 mg PO DAILY #30 tab 07/05/24 Sacubitril/Valsartan [Entresto 24 1 each PO BID 30 Days #60 tab 08/29/24 mg-26 mg Tablet] Ertapenem [INVanz] 0.5 gm IVPB Q24H #12 each 09/17/24 INSULIN ASPART (NovoLOG) [NovoLOG 0 unit SQ ACHS #0 each 09/20/24 (formulary)] Insulin Detemir (Levemir) [Levemir] 10 unit SQ DAILY@0700 each 09/20/24 Loperamide [Imodium] 2 mg PO QID PRN cap 09/20/24 Allergies Allergy/AdvReac Type Severity Reaction Status Date / Time Sulfa (Sulfonamide Allergy Rash/Hives Verified 10/18/24 07:47 Antibiotics) Review of Systems ROS Statement: Those systems with pertinent positive or pertinent negative responses have been documented in the HPI. ROS Other: All systems not noted in ROS Statement are negative. Past Medical History Past Medical History: Coronary Artery Disease (CAD), Chest Pain / Angina, Heart Failure, COPD, CVA/TIA, Diabetes Mellitus, Fibromyalgia, GERD/Reflux, Hyperlipidemia, Hypertension, Liver Disease, Myocardial Infarction ([place]), O steoarthritis (OA), Renal Disease, Thyroid Disorder Additional Past Medical History / Comment(s): NEUROPATHY BILATERAL FEET, DDD NECK AND LOWER BACK, hiatal hernia, states no need for BP med anymore(gets orthostatic hypotension-has "medtronic heart loop monitor"), hx hepatitis as a kid, hx fractrured left wrist, hx stroke 03/03/22-problems with balance since. Last Myocardial Infarction Date:: 02/2024 History of Any Multi-Drug Resistant Organisms: ESBL, MRSA Date of last positivie culture/infection: 09/13/24-ESBL; 2018-MRSA MDRO Source:: ESBL-urine; MRSA-stomach Past Surgical History: Adenoidectomy, Back Surgery, Bladder Surgery, Hysterectomy, Orthopedic Surgery, Tonsillectomy, Tubal Ligation Additional Past Surgical History / Comment(s): Debridement right foot, PICC line placed and later removed, bladder suspension, exploratory laparotomy, right great toe amputation, pins right in foot, cataracts removed, left wrist ORIF, loop heart monitor placed 02/2022. Past Anesthesia/Blood Transfusion Reactions: No Reported Reaction, Motion Sickness Additional Past Anesthesia/Blood Transfusion Reaction / Comment(s): . Type of Cardiac Device: Loop Past Psychological History: Anxiety, Depression Smoking Status: Former smoker Past Alcohol Use History: Occasional Past Drug Use History: Marijuana, Methamphetamine - Past Family History Sister(s) Family Medical History: Coronary Artery Disease (CAD) Mother Family Medical History: Pulmonary Embolus Additional Family Medical History / Comment(s): . Father Additional Family Medical History / Comment(s): at 26yrs old--accident at work General Exam - General Exam Comments Initial Comments: GENERAL: Patient is well-developed and well-nourished. Patient is nontoxic and well-hydr ated and is in mild distress. ENT: Neck is soft and supple. No significant lymphadenopathy is noted. Oropharynx is clear. Moist mucous membranes. Neck has full range of motion without eliciting any pain. EYES: The sclera were anicteric and conjunctiva were pink and moist. Extraocular movements were intact and pupils were equal round and reactive to light. Eyelids were unremarkable. PULMONARY: Patient has crackles bilateral bases CARDIOVASCULAR: There is a regular rate and rhythm without any murmurs gallops or rubs. ABDOMEN: Soft and nontender with normal bowel sounds. SKIN: Skin is clear with no lesions or rashes and otherwise unremarkable. NEUROLOGIC: Patient is alert and oriented x3. Cranial nerves II through XII are grossly intact. Motor and sensory are also intact. Normal speech, volume and content. Symmetrical smile. MUSCULOSKELETAL: Normal extremities with adequate strength and full range of motion. 1+ bilaterally LYMPHATICS: No significant lymphadenopathy is noted PSYCHIATRIC: Normal psychiatric evaluation. Course Vital Signs 10/18/24 10/18/24 10/18/24 07:31 08:17 08:21 Temperature 98.5 F Pulse Rate 83 77 Respiratory 20 18 20 Rate Blood Pressure 145/66 127/54 O2 Sat by Pulse 94 L 95 Oximetry 10/18/24 10/18/24 08:44 09:32 Temperature Pulse Rate 77 77 Respiratory 17 18 Rate Blood Pressure 110/60 126/61 O2 Sat by Pulse 94 L 97 Oximetry Medical Decision Making - Medical Decision Making EKG shows a sinus rhythm with occasional PVC at a rate of 82 bpm AK was 160 QRS 146 QT interval is 443 QTc is 481. Patient's EKG shows no ST segment elevation. Patient has a left bundle branch block. Was pt. sent in by a medical professional or institution (TOM Olson, [employer], urgent care, hospital, or [facility]...) When possible be specific @ -No Did you speak to anyone other than the patient for history (EMS, parent, family, police, friend...)? What history was obtained from this source @ -No Did you review nursing and triage notes (agree or disagree)? Why? @ -I reviewed and agree with nursing and triage notes Were old charts reviewed (outside hosp., previous admission, EMS record, old EKG, old radiological studies, urgent care reports/EKG's, [facility] records)? Report findings @ -No old charts were reviewed Differential Diagnosis? @ -Differential Dyspnea: Coronary syndrome, arrhythmia, tamponade, asthma, COPD, pulmonary embolism, pneumonia, pneumothorax, pulmonary effusion, anaphylaxis, diabetic ketoacidosis, flailed chest, pulmonary contusion, diaphragmatic rupture, anemia, n euromuscular, this is not meant to be an all-inclusive list. EKG interpreted by me (3pts min.). @ -As above X-rays interpreted by me (1pt min.). @ -Chest x-ray shows acute pulmonary edema CT interpreted by me (1pt min.). @ -None done U/S interpreted by me (1pt. min.). @ -None done What testing was considered but not performed or refused? (CT, X-rays, U/S, labs)? Why? @ -None What meds were considered but not given or refused? Why? @ -None Did you discuss the management of the patient with other professionals (professionals i.e. TOM Olson, [employer], lab, RT, psych nurse, social media campaign manager, before school babysitter, teacher, administrative services officer, corrections caseworker)? Give summary @ -I spoke with sound physicians agreed to admit the patient admit the patient. I also spoke with Dr. Sevilla and she agreed to set up dialysis for the patient. Was smoking cessation discussed for >3mins.? @ -No Was critical care preformed (if so, how long)? @ -35 minutes Were there social determinants of health that impacted care today? How? (Homelessness, low income, unemployed, alcoholism, drug addiction, transportation, low edu. Level, literacy, decrease access to med. care, skilled nursing, rehab)? @ -No Was there de-escalation of care discussed even if they declined (Discuss DNR or withdrawal of care, Hospice)? DNR status @ -No What co-morbidities impacted this encounter? (DM, HTN, Smoking, COPD, CAD, Cancer, CVA, ARF, Chemo, Hep., AIDS, mental health diagnosis, sleep apnea, morbid obesity)? @ -None Was patient admitted / discharged? Hospital course, mention meds given and route, prescriptions, significant lab abnormalities, going to OR and other pertinent info. @ -Patient had pulmonary edema on the x-ray I spoke with Dr. Ruiz she is going to set up dialysis for the patient and I will admit the patient to sound with a consult to Dr. Sevilla Undiagnosed new problem with uncertain prognosis? @ -No Drug Therapy requiring intensive monitoring for toxicity (Heparin, Nitro, Insulin, Cardizem)? @ -No Were any procedures done? @ -No Diagnosis/symptom? @ -Acute pulmonary edema Acute, or Chronic, or Acute on Chronic? @ -Acute Uncomplicated (without systemic symptoms) or Complicated (systemic symptoms)? @ -Complicated Side effects of treatment? @ -No Exacerbation, Progression, or Severe Exacerbation? @ -No Poses a threat to life or bodily function? How? (Chest pain, [place], [place], pneumonia, PE, COPD, DKA, ARF, appy, cholecystitis, CVA, Diverticulitis, Homicidal, Suicidal, threat to staff... and all critical care pts) @ -Yes this can lead to hypoxia and endorgan dysfunction Diagnosis/symptom? @ -Noncompliant with dialysis Acute, or Chronic, or Acute on Chronic? @ -Acute Uncomplicated (without systemic symptoms) or Complicated (systemic symptoms)? @ -Complicated Side effects of treatment? @ -None Exacerbation, Progression, or Severe Exacerbation] @ -No Poses a threat to life or bodily function? @ -No Diagnosis/symptom? @ -Diarrhea Acute, or Chronic, or Acute on Chronic? @ -Acute Uncomplicated (without systemic symptoms) or Complicated (systemic symptoms)? @ -Complicated Side effects of treatment? @ -None Exacerbation, Progression, or Severe Exacerbation] @ -No Poses a threat to life or bodily function? @ -No - Lab Data Result diagrams: 10/18/24 08:02 10/18/24 09:11 Lab Results 10/18/24 10/18/24 10/18/24 Range/Units 07:32 08:02 08:02 WBC 3.0 L (3.8-10.6) k/uL RBC 4.15 (3.80-5.40) m/uL Hgb 13.3 (11.4-16.0) gm/dL Hct 42.0 (34.0-46.0) % MCV 101.2 H D (80.0-100.0) fL MCH 32.0 (25.0-35.0) pg MCHC 31.6 (31.0-37.0) g/dL RDW 15.5 (11.5-15.5) % Plt Count 97 L D (150-450) k/uL MPV 8.9 Neutrophils % 60 % Lymphocytes % 32 % Monocytes % 3 % Eosinophils % 2 % Basophils % 0 % Neutrophils # 1.8 (1.3-7.7) k/uL Lymphocytes # 1.0 (1.0-4.8) k/uL Monocytes # 0.1 (0-1.0) k/uL Eosinophils # 0.1 (0-0.7) k/uL Basophils # 0.0 (0-0.2) k/uL Manual Slide Review Performed Macrocytosis Slight PT 10.6 (10.0-12.5) sec INR 0.9 (<1.2) APTT 20.2 L (22.0-30.0) sec Sodium (137-145) mmol/L Potassium (3.5-5.1) mmol/L Chloride (98-107) mmol/L Carbon Dioxide (22-30) mmol/L Anion Gap mmol/L BUN (7-17) mg/dL Creatinine (0.52-1.04) mg/dL Est GFR (CKD-EPI)AfAm (>60 ml/min/1.73 sqM) Est GFR (CKD-EPI)NonAf (>60 ml/min/1.73 sqM) Glucose (74-99) mg/dL POC Glucose (mg/dL) 280 H (70-110) mg/dL POC Glu Petroleum Engineering Teacher ID Vinayak Arreola Plasma Lactic Acid Ketan (0.7-2.0) mmol/L Calcium (8.4-10.2) mg/dL Magnesium (1.6-2.3) mg/dL Total Bilirubin (0.2-1.3) mg/dL AST (14-36) U/L ALT (4-34) U/L Alkaline Phosphatase (38-126) U/L Troponin I (0.000-0.034) ng/mL Total Protein (6.3-8.2) g/dL Albumin (3.5-5.0) g/dL 10/18/24 10/18/24 10/18/24 Range/Units 08:02 08:02 09:11 WBC (3.8-10.6) k/uL RBC (3.80-5.40) m/uL Hgb (11.4-16.0) gm/dL Hct (34.0-46.0) % MCV (80.0-100.0) fL MCH (25.0-35.0) pg MCHC (31.0-37.0) g/dL RDW (11.5-15.5) % Plt Count (150-450) k/uL MPV Neutrophils % % Lymphocytes % % Monocytes % % Eosinophils % % Basophils % % Neutrophils # (1.3-7.7) k/uL Lymphocytes # (1.0-4.8) k/uL Monocytes # (0-1.0) k/uL Eosinophils # (0-0.7) k/uL Basophils # (0-0.2) k/uL Manual Slide Review Macrocytosis PT (10.0-12.5) sec INR (<1.2) APTT (22.0-30.0) sec Sodium 134 L (137-145) mmol/L Potassium 4.2 (3.5-5.1) mmol/L Chloride 100 (98-107) mmol/L Carbon Dioxide 18 L (22-30) mmol/L Anion Gap 16 mmol/L BUN 55 H (7-17) mg/dL Creatinine 2.85 H (0.52-1.04) mg/dL Est GFR (CKD-EPI)AfAm 20 (>60 ml/min/1.73 sqM) Est GFR (CKD-EPI)NonAf 17 (>60 ml/min/1.73 sqM) Glucose 311 H (74-99) mg/dL POC Glucose (mg/dL) (70-110) mg/dL POC Glu Petroleum Engineering Teacher ID Plasma Lactic Acid Ketan 3.5 H* (0.7-2.0) mmol/L Calcium 7.6 L (8.4-10.2) mg/dL Magnesium 1.5 L (1.6-2.3) mg/dL Total Bilirubin 0.6 (0.2-1.3) mg/dL AST 49 H (14-36) U/L ALT 19 (4-34) U/L Alkaline Phosphatase 161 H (38-126) U/L Troponin I 0.018 (0.000-0.034) ng/mL Total Protein 6.0 L (6.3-8.2) g/dL Albumin 3.0 L (3.5-5.0) g/dL Disposition Clinical Impression: Acute pulmonary edema, Dialysis patient, noncompliant, Diarrhea Disposition: ADMITTED IP TO THIS HOSP Referrals: Papi Saavedra DO [Primary Care Provider] - 1-2 days Time of Disposition: 10:45
[2024-10-18 09:10] LABS: INR 0.9 (<1.2); Prothrombin Time 10.6 sec (10.0-12.5)
--- NOTE | 2024-10-18 09:10 | XR ---
EXAMINATION TYPE: XR chest 2V DATE OF EXAM: 10/18/2024 8:58 AM COMPARISON: 08/26/2024 CLINICAL INDICATION: Female, 59 years old with shortness of breath, history of difficulty breathing, , TECHNIQUE: PA and lateral views FINDINGS: Right-sided double-lumen hemodialysis catheter with tips at the cavoatrial junction. Loop recorder de vice projects over the left side of the heart. Median sternotomy wires and post-CABG clips. There are small right greater than left pleural effusions with adjacent basilar patchy opacity. Mild interstit ial density also noted. IMPRESSION: Mild pulmonary vascular congestion. Small right greater than left pleural effusions with adjacent ate lectasis and/or consolidation. [facility], , 10/18/2024 9:07 AM
[2024-10-18 09:18] LABS: Partial Thromboplastin Time 20.2 sec (22.0-30.0)
[2024-10-18 09:25] LABS: Basophils % (A) 0 %; Eosinophils # (A) 0.1 k/uL (0-0.7); Eosinophils % (A) 2 %; HGB 13.3 gm/dL (11.4-16.0); Lymphocytes % (A) 32 %; MCHC 31.6 g/dL (31.0-37.0); Macrocytosis Slight; Mean Platelet Volume 8.9; Monocytes # (A) 0.1 k/uL (0-1.0); Monocytes % (A) 3 %; Neutrophils # (A) 1.8 k/uL (1.3-7.7); Neutrophils % (A) 60 %; RBC 4.15 m/uL (3.80-5.40); RDW 15.5 % (11.5-15.5)
[2024-10-18 09:28] LABS: MCV 101.2 fL (80.0-100.0)
[2024-10-18] MEDS: HYDROcodone/APAP 5-325MG 1 EACH TAB PO STA (09:30)
[2024-10-18 09:39] LABS: ALT 19 U/L (4-34); African American GFR (CKD) 20 (>60 ml/min/1.73 sqM); Anion Gap 16 mmol/L; Blood Urea Nitrogen 55 mg/dL (7-17); Calcium 7.6 mg/dL (8.4-10.2); Carbon Dioxide 18 mmol/L (22-30); Chloride 100 mmol/L (98-107); Glucose 311 mg/dL (74-99); Non-African American GFR(CKD) 17 (>60 ml/min/1.73 sqM); Sodium 134 mmol/L (137-145); Total Bilirubin 0.6 mg/dL (0.2-1.3)
[2024-10-18 09:44] LABS: Magnesium 1.5 mg/dL (1.6-2.3); Potassium 4.2 mmol/L (3.5-5.1)
[2024-10-18 09:46] LABS: AST 49 U/L (14-36); Alkaline Phosphatase 161 U/L (38-126)
[2024-10-18 09:59] LABS: Platelet Count 97 k/uL (150-450)
--- NOTE | 2024-10-18 10:13 | P.NPCON ---
History of Present Illness - Reason for Consult end stage renal disease - History of Present Illness Patient is a 59-year-old female with end-stage renal disease on hemodialysis on Monday schedule. She presents to the hospital with complaints of diarrhea and weakness. Patient has had vomiting as well on and off. She missed her dialysis on Monday. Patient has underlying COPD as well. She is complaining of shortness of breath. No history of fever or chills. No history of abdominal pain Lactic acid elevated at 3.5 Past Medical History Past Medical History: Coronary Artery Disease (CAD), Chest Pain / Angina, Heart Failure, COPD, CVA/TIA, Diabetes Mellitus, Fibromyalgia, GERD/Reflux, Hyperlipidemia, Hypertension, Liver Disease, Myocardial Infarction ([place]), Osteoarthritis (OA), Renal Disease, Thyroid Disorder Additional Past Medical History / Comment(s): NEUROPATHY BILATERAL FEET, DDD NECK AND LOWER BACK, hiatal hernia, states no need for BP med anymore(gets orthostatic hypotension-has "medtronic heart loop monitor"), hx hepatitis as a kid, hx fractrured left wrist, hx stroke 03/03/22-problems with balance since. Last Myocardial Infarction Date:: 02/2024 History of Any Multi-Drug Resistant Organisms: ESBL, MRSA Date of last positivie culture/infection: 09/13/24-ESBL; 2017-MRSA MDRO Source:: ESBL-urine; MRSA-stomach Past Surgical History: Adenoidectomy, Back Surgery, Bladder Surgery, Hysterectomy, Orthopedic Surgery, Tonsillectomy, Tubal Ligation Additional Past Surgical History / Comment(s): Debridement right foot, PICC line placed and later removed, bladder suspension, exploratory laparotomy, right great toe amputation, pins right in foot, cataracts removed, left wrist ORIF, loop heart monitor placed 02/2022. Past Anesthesia/Blood Transfusion Reactions: No Reported Reaction, Motion Sickness Additional Past Anesthesia/Blood Transfusion Reaction / Comment(s): . Type of Cardiac Device: Loop Past Psychological History: Anxiety, Depression Smoking Status: Former smoker Past Alcohol Use History: Occasional Past Drug Use History: Marijuana, Methamphetamine - Past Family History Sister(s) Family Medical History: Coronary Artery Disease (CAD) Mother Family Medical History: Pulmonary Embolus Additional Family Medical History / Comment(s): . Father Additional Family Medical History / Comment(s): at 26yrs old--accident at work Medications and Allergies Home Medications Medication Instructions Recorded Confirmed Type Levothyroxine Sodium [Synthroid] 175 mcg PO DAILY 02/02/22 09/14/24 History Ondansetron [Zofran] 4 mg PO Q8H PRN 02/06/24 09/14/24 History traZODone HCL [Desyrel] 50 mg PO HS 02/09/24 09/14/24 History Clopidogrel [Plavix] 75 mg PO DAILY tab 03/18/24 09/14/24 Rx Ipratropium-Albuterol Nebulize 3 ml INHALATION RT-Q2H PRN each 03/18/24 4 Rx [Duoneb 0.5 mg-3 mg/3 ml Soln] Pantoprazole [Protonix] 40 mg PO AC-BRKFST tab 03/18/24 09/14/24 Rx Acetaminophen Tab [Tylenol] 650 mg PO Q6H PRN 06/30/24 09/14/24 History Aspirin EC [Ecotrin Low Dose] 81 mg PO DAILY 06/30/24 09/14/24 History Atorvastatin [Lipitor] 40 mg PO HS 06/30/24 09/14/24 History Fluticasone/Umeclidin/Vilanter 1 puff INHALATION RT-DAILY 06/30/24 09/14/24 History [Trelegy Ellipta 100-62.5-25] Ipratropium [place] [Atrovent Hfa] 2 puff INHALATION RT-Q6H PRN 06/30/24 09/14/24 History Polyvinyl Alcohol/Povidone [Clear 1 drop BOTH EYES QID PRN 06/30/24 09/14/24 History Eyes Natural Tears Drop] Metoprolol Succinate (ER) [Toprol 25 mg PO DAILY #30 tab 07/05/24 09/14/24 Rx XL] Torsemide [Demadex] 40 mg PO DAILY #30 tab 07/05/24 09/14/24 Rx Insulin Aspart [NovoLOG Flexpen] See Protocol SQ AC-TID 08/26/24 09/14/24 History Sacubitril/Valsartan [Entresto 24 1 each PO BID 30 Days #60 tab 08/29/24 09/14/24 Rx mg-26 mg Tablet] Ertapenem [INVanz] 0.5 gm IVPB Q24H #12 each 09/17/24 Rx INSULIN ASPART (NovoLOG) [NovoLOG 0 unit SQ ACHS #0 each 09/20/24 Rx (formulary)] Insulin Detemir (Levemir) [Levemir] 10 unit SQ DAILY@0700 each 09/20/24 Rx Loperamide [Imodium] 2 mg PO QID PRN cap 09/20/24 Rx Allergies Allergy/AdvReac Type Severity Reaction Status Date / Time Sulfa (Sulfonamide Allergy Rash/Hives Verified 10/18/24 07:47 Antibiotics) Physical Exam Vitals: Vital Signs Temp Pulse Resp BP Pulse Ox 10/18/24 09:32 77 18 126/61 97 10/18/24 08:44 77 17 110/60 94 L 10/18/24 08:21 20 10/18/24 08:17 77 18 127/54 95 10/18/24 07:31 98.5 F 83 20 145/66 94 L Intake and Output 10/17/24 10/18/24 10/18/24 22:59 06:59 14:59 Other: Weight 66.678 kg Patient is awake, comfortable, no acute distress. Examination of the heart S1 and S2 Examination of the lungs bilateral breath sounds are heard, decreased breath sounds at the bases with basal crackles Abdomen is soft nontender Examination of lower extremities shows chronic edema lower extremities. METAL CONTROL COORDINATOR exam grossly intact Results - Lab Results Most recent lab results Calcium 7.6 mg/dL (8.4-10.2) L 10/18/24 09:11 Magnesium 1.5 mg/dL (1.6-2.3) L 10/18/24 09:11 10/18/24 08:02 10/18/24 09:11 Assessment and Plan Assessment: 1. End-stage renal disease on hemodialysis on Monday schedule. Last dialysis was on 10/15/2024 2. Metabolic acidosis secondary to diarrhea as well as lactic acidosis and end- stage renal disease 3. Volume overload 4. Diarrhea 5. CKD mineral bone disorder Plan: Hemodialysis today. Resume home medications Check phosphorus with labs in a.m.
[2024-10-18 10:47] LABS: NT-Pro-B-Type Natriuretic Pept 21600 pg/mL
[2024-10-18] MEDS ORDERED: ONDANSETRON 4 MG TAB PO PRN (12:08)
[2024-10-18] MEDS ORDERED: ARTIFICIAL TEARS-HYPROMELLOSE DROPS 15 ML BTL BOTH EYES PRN (12:08)
[2024-10-18] MEDS ORDERED: IPRATROPIUM 0.5 MG/2.5 ML NEBU INHALATION PRN (12:08)
[2024-10-18] MEDS ORDERED: MIDODRINE 5 MG TAB PO PRN (12:08)
[2024-10-18] MEDS ORDERED: DEXTROSE 50% SYRINGE 50 ML IVP PRN ×4 (12:12→13:03)
[2024-10-18 12:41] LABS: Glucose,Whole Blood 390 mg/dL (70-110)
[2024-10-18] MEDS: INSULIN ASPART (NovoLOG) 100 UNIT/ML VIAL SQ SCH (12:50)
--- NOTE | 2024-10-18 13:08 | P.HPIM ---
History of Present Illness H&P Date: 10/18/24 Patient is a 59-year-old female with past medical history of CAD, ischemic cardiomyopathy, CABG 2019, EF 10 to 20%, COPD, DM, fibromyalgia, GERD, HLD, HTN, hypothyroidism, osteoarthritis, ESRD on HD M MWF, ESBL UTI 09/2024, who presented to the hospital with shortness of breath, vomiting, diarrhea, generalized weakness. Patient has been having diarrhea for a month so far, has 8-10 brown liquid bowel movements a day, has associated abdominal discomfort that goes away after bowel movement. Also complains of nausea and vomiting, has had around 2 episodes of vomiting a day, early satiety. Was not previously diagnosed with diabetic gastroparesis. Denies recent travels, diet changes, medication changes. Patient missed dialysis on 10/16 due to ongoing diarrhea. ED course: Afebrile, heart rate normal, normotensive, was started on nasal cannula, no documented hypoxia Chest x-ray showed mild pulmonary vascular congestion, small right greater than left pleural effusions with adjacent atelectasis and/or consolidation. EKG with sinus rhythm, premature ventricular complexes, LBBB pattern, QTc 481. Lab work showed leukopenia 2.0, normal hemoglobin, sodium 134, unchanged from before, normal potassium, lactic acid 3.5, magnesium 1.5, troponin negative Patient was admitted to our service for evaluation of shortness of breath secondary to fluid overload due to missed dialysis, metabolic acidosis due to diarrhea, lactic acidosis in the settings of ESRD. Nephrology consulted, plan for HD today, continue home medications. Pertinent positives and negatives as discussed in HPI, a complete review of systems was performed and all other systems are negative. Patient seen and examined at bedside. Vital signs reviewed General: nontoxic, no distress, appears at stated age Derm: warm, dry, chest HD catheter Head: atraumatic, normocephalic, symmetric Eyes: EOMI, no lid lag, anicteric sclera, pupils equal round reactive to light ENT: Nose and ears atraumatic Neck: No thyromegaly, supple Mouth: no lip lesion, mucus membranes moist Cardiovascular: S1S2 reg, no murmur, no edema Lungs: clear to auscultation bilateral, no rhonchi, no rales, no wheeze, no accessory muscle use Abdominal: soft, generalized tenderness, no guarding, no appreciable organomegaly Ext: no gross muscle atrophy, muscle strength muscle strength 5 out of 5 in all 4 extremities, no contractures, 1+ pitting edema Neuro: CN II-XII grossly intact Psych: Alert, oriented, appropriate affect Assessment/Plan: [Active:] Shortness of breath without documented hypoxia secondary to fluid volume overload due to missed HD session Anion gap metabolic acidosis secondary to renal disease Lactic acidosis Hypomagnesemia Leukopenia Prolonged QTc End-stage renal disease on hemodialysis -Nephrology consulted, appreciate recommendations -HD 10/18 -Check BMP, phosphate in a.m. -Recheck CBC -Avoid QTc prolonging agents Diarrhea Nausea, vomiting, concern for diabetic gastroparesis -Fecal calprotectin, ESR, CRP -check cdif -Patient will need to follow-up with GI as outpatient -Did not order Reglan due to prolonged QTc Insulin-dependent diabetes mellitus: Patient takes long-acting 14 units daily, will continue with Accu-Cheks,10 U of levemir, SSI Anemia of chronic disease: Hemoglobin normal and stable Hyperlipidemia Hypothyroid GERD CAD, ischemic cardiomyopathy, status post CABG COPD not in acute exacerbation Congestive heart failure with left ventricular ejection fraction of 15 to 20% on echo 08/28/2024 -Continue home medications for chronic medical conditions The patient is admitted with an anticipated [greater] than 2 midnight stay as [inpatient/observation] status for evaluation of volume overload, diarrhea. CODE STATUS full code DVT prophylaxis: heparin Anticipated discharge date:24-[address]: [facility] A total of 40 minutes was spent on the care of this complex patient more than 50% of the time was spent in counseling and care coordination. Past Medical History Past Medical History: Coronary Artery Disease (CAD), Chest Pain / Angina, Heart Failure, COPD, CVA/TIA, Diabetes Mellitus, Fibromyalgia, GERD/Reflux, Hyperlipidemia, Hypertension, Liver Disease, Myocardial Infarction ([place]), Osteoarthritis (OA), Renal Disease, Thyroid Disorder Additional Past Medical History / Comment(s): NEUROPATHY BILATERAL FEET, DDD NECK AND LOWER BACK, hiatal hernia, states no need for BP med anymore(gets orthostatic hypotension-has "medtronic heart loop monitor"), hx hepatitis as a kid, hx fractrured left wrist, hx stroke 03/03/22-problems with balance since. Last Myocardial Infarction Date:: 02/2024 History of Any Multi-Drug Resistant Organisms: ESBL, MRSA Date of last positivie culture/infection: 09/13/24-ESBL; 2018-MRSA MDRO Source:: ESBL-urine; MRSA-stomach Past Surgical History: Adenoidectomy, Back Surgery, Bladder Surgery, Hysterectomy, Orthopedic Surgery, Tonsillectomy, Tubal Ligation Additional Past Surgical History / Comment(s): Debridement right foot, PICC line placed and later removed, bladder suspension, exploratory laparotomy, right great toe amputation, pins right in foot, cataracts removed, left wrist ORIF, loop heart monitor placed 02/2022. Past Anesthesia/Blood Transfusion Reactions: No Reported Reaction, Motion Sickness Additional Past Anesthesia/Blood Transfusion Reaction / Comment(s): . Type of Cardiac Device: Loop Past Psychological History: Anxiety, Depression Smoking Status: Former smoker Past Alcohol Use History: Occasional Past Drug Use History: Marijuana, Methamphetamine - Past Family History Sister(s) Family Medical History: Coronary Artery Disease (CAD) Mother Family Medical History: Pulmonary Embolus Additional Family Medical History / Comment(s): . Father Additional Family Medical History / Comment(s): at 26yrs old--accident at work Medications and Allergies Home Medications Medication Instructions Recorded Confirmed Type Levothyroxine Sodium [Synthroid] 175 mcg PO DAILY 02/02/22 10/18/24 History Ondansetron [Zofran] 4 mg PO Q8H PRN 02/06/24 10/18/24 History traZODone HCL [Desyrel] 50 mg PO HS 02/09/24 10/18/24 History Clopidogrel [Plavix] 75 mg PO DAILY tab 03/18/24 10/18/24 Rx Ipratropium-Albuterol Nebulize 3 ml INHALATION RT-Q2H PRN each 03/18/24 10/18/24 Rx [Duoneb 0.5 mg-3 mg/3 ml Soln] Pantoprazole [Protonix] 40 mg PO AC-BRKFST tab 03/18/24 10/18/24 Rx Acetaminophen Tab [Tylenol] 650 mg PO Q6H PRN 06/30/24 10/18/24 History Aspirin EC [Ecotrin Low Dose] 81 mg PO DAILY 06/30/24 10/18/24 History Atorvastatin [Lipitor] 40 mg PO HS 06/30/24 10/18/24 History Fluticasone/Umeclidin/Vilanter 1 puff INHALATION RT-DAILY 06/30/24 10/18/24 History [Trelegy Ellipta 100-62.5-25] Ipratropium Kamrar [Atrovent Hfa] 2 puff INHALATION RT-Q6H PRN 06/30/24 10/18/24 History Polyvinyl Alcohol/Povidone [Clear 1 drop BOTH EYES QID PRN 06/30/24 10/18/24 History Eyes Natural Tears Drop] Metoprolol Succinate (ER) [Toprol 25 mg PO DAILY #30 tab 07/05/24 10/18/24 Rx XL] Torsemide [Demadex] 40 mg PO DAILY #30 tab 07/05/24 10/18/24 Rx Insulin Aspart [NovoLOG Flexpen] See Protocol SQ AC-TID 08/26/24 10/18/24 History Loperamide [Imodium] 2 mg PO QID PRN cap 09/20/24 10/18/24 Rx Insulin Glargine,Hum.rec.anlog 14 units SQ DAILY@1100 10/18/24 10/18/24 History [Lantus Solostar Pen] Midodrine [ProAmatine] 5 mg PO BID PRN 10/18/24 10/18/24 History Sacubitril/Valsartan [Entresto 24 1 tab PO BID 10/18/24 10/18/24 History mg-26 mg Tablet] Allergies Allergy/AdvReac Type Severity Reaction Status Date / Time Sulfa (Sulfonamide Allergy Rash/Hives Verified 10/18/24 10:58 Antibiotics) Physical Exam Vitals: Vital Signs Temp Pulse Resp BP Pulse Ox 10/18/24 11:25 82 20 127/53 99 10/18/24 09:32 77 18 126/61 97 10/18/24 08:44 77 17 110/60 94 L 10/18/24 08:21 20 10/18/24 08:17 77 18 127/54 95 10/18/24 07:31 98.5 F 83 20 145/66 94 L Intake and Output 10/17/24 10/18/24 10/18/24 22:59 06:59 14:59 Other: Weight 66.678 kg Results CBC & Chem 7: 10/18/24 08:02 10/18/24 09:11 Labs: Abnormal Lab Results - Last 24 Hours (Table) 10/18/24 10/18/24 10/18/24 Range/Units 07:32 08:02 08:02 WBC 3.0 L (3.8-10.6) k/uL MCV 101.2 H D (80.0-100.0) fL Plt Count 97 L D (150-450) k/uL APTT 20.2 L (22.0-30.0) sec Sodium (137-145) mmol/L Carbon Dioxide (22-30) mmol/L BUN (7-17) mg/dL Creatinine (0.52-1.04) mg/dL Glucose (74-99) mg/dL POC Glucose (mg/dL) 280 H (70-110) mg/dL Plasma Lactic Acid Ketan (0.7-2.0) mmol/L Calcium (8.4-10.2) mg/dL Magnesium (1.6-2.3) mg/dL AST (14-36) U/L Alkaline Phosphatase (38-126) U/L Total Protein (6.3-8.2) g/dL Albumin (3.5-5.0) g/dL 10/18/24 10/18/24 Range/Units 08:02 09:11 WBC (3.8-10.6) k/uL MCV (80.0-100.0) fL Plt Count (150-450) k/uL APTT (22.0-30.0) sec Sodium 134 L (137-145) mmol/L Carbon Dioxide 18 L (22-30) mmol/L BUN 55 H (7-17) mg/dL Creatinine 2.85 H (0.52-1.04) mg/dL Glucose 311 H (74-99) mg/dL POC Glucose (mg/dL) (70-110) mg/dL Plasma Lactic Acid Ketan 3.5 H* (0.7-2.0) mmol/L Calcium 7.6 L (8.4-10.2) mg/dL Magnesium 1.5 L (1.6-2.3) mg/dL AST 49 H (14-36) U/L Alkaline Phosphatase 161 H (38-126) U/L Total Protein 6.0 L (6.3-8.2) g/dL Albumin 3.0 L (3.5-5.0) g/dL
[2024-10-18 14:51] LABS: Glucose,Whole Blood 176 mg/dL (70-110)
[2024-10-18] MEDS: ONDANSETRON 4 MG/2 ML VIAL IVP PRN (15:52)
[2024-10-18] MEDS: IPRATROPIUM 0.5 MG/2.5 ML NEBU INHALATION SCH (16:05)
[2024-10-18 16:29] LABS: Glucose,Whole Blood 159 mg/dL (70-110)
[2024-10-18] MEDS: ACETAMINOPHEN TAB 325 MG TAB PO PRN (17:35)
[2024-10-18] MEDS: SACUBITRIL/VALSARTAN 24 MG-26 MG TABLET PO SCH (20:26)
[2024-10-18] MEDS: HEPARIN SODIUM,PORCINE 5,000 UNIT/ML 1 ML VIAL SQ SCH (20:26)
[2024-10-18] MEDS: MAGNESIUM OXIDE 400 MG TAB PO STA (20:26)
[2024-10-18] MEDS: traZODone HCL 50 MG TAB PO SCH (20:26)
[2024-10-18] MEDS: LOPERAMIDE 2 MG CAP PO STA (20:26)
[2024-10-18] MEDS: HYDROcodone/APAP 5-325MG 1 EACH TAB PO PRN (20:26)
[2024-10-18] MEDS: ATORVASTATIN 40 MG TAB PO SCH (20:26)
[2024-10-18 20:31] LABS: Glucose,Whole Blood 384 mg/dL (70-110)
[2024-10-18] MEDS: INSULIN DETEMIR (LEVEMIR) 100 UNIT/ML SYR SQ SCH (21:13)
[2024-10-19 04:44] LABS: Glucose,Whole Blood 277 mg/dL (70-110)
[2024-10-19] MEDS: LEVOTHYROXINE 88 MCG TAB PO SCH (06:37)
[2024-10-19] MEDS: PANTOPRAZOLE 40 MG TABLET PO SCH (06:37)
[2024-10-19 07:12] LABS: Glucose,Whole Blood 434 mg/dL (70-110)
[2024-10-19 08:29] LABS: Basophils % (A) 0 %; Eosinophils % (A) 0 %; HCT 39.7 % (34.0-46.0); HGB 12.3 gm/dL (11.4-16.0); Hypochromasia Marked; Lymphocytes # (A) 0.5 k/uL (1.0-4.8); Lymphocytes % (A) 12 %; MCH 32.7 pg (25.0-35.0); MCV 105.6 fL (80.0-100.0); Macrocytosis Moderate; Mean Platelet Volume 9.5; Monocytes # (A) 0.2 k/uL (0-1.0); Monocytes % (A) 5 %; Neutrophils % (A) 80 %; RBC 3.76 m/uL (3.80-5.40); RDW 15.1 % (11.5-15.5); WBC 3.7 k/uL (3.8-10.6)
[2024-10-19 08:32] LABS: Platelet Count 82 k/uL (150-450)
[2024-10-19 09:15] LABS: African American GFR (CKD) 21 (>60 ml/min/1.73 sqM); Anion Gap 27 mmol/L; Blood Urea Nitrogen 31 mg/dL (7-17); C Reactive Protein 4.6 mg/dL (<1.0); Calcium 7.9 mg/dL (8.4-10.2); Carbon Dioxide 10 mmol/L (22-30); Chloride 96 mmol/L (98-107); Glucose 457 mg/dL (74-99); Magnesium 1.6 mg/dL (1.6-2.3); Non-African American GFR(CKD) 18 (>60 ml/min/1.73 sqM); Phosphorus 5.6 mg/dL (2.5-4.5); Potassium 4.6 mmol/L (3.5-5.1); Sodium 133 mmol/L (137-145)
[2024-10-19] MEDS: SYMBICORT 80-4.5 MCG INHALER INHALATION SCH (09:52)
[2024-10-19] MEDS: METOPROLOL SUCCINATE (ER) 25 MG TAB.ER.24H PO SCH (10:47)
[2024-10-19 11:23] LABS: Glucose,Whole Blood 221 mg/dL (70-110)
[2024-10-19] MEDS: PROCHLORPERAZINE 10 MG TAB PO PRN (11:24)
[2024-10-19] MEDS: CLOPIDOGREL 75 MG TAB PO SCH (11:26)
[2024-10-19] MEDS: TORSEMIDE 20 MG TAB PO SCH (11:26)
[2024-10-19] MEDS: ASPIRIN 81 MG PO SCH (11:27)
--- NOTE | 2024-10-19 11:47 | P.PN ---
Subjective Patient is seen for f/u for ESRD. S/p hemodialysis yesterday UF 2 L Complaining of nausea and not feeling well. Has had some loose bowel movements 2. Objective - Vital Signs Vital signs: Vital Signs Temp 97.9 F 10/19/24 07:40 Pulse 112 H 10/19/24 07:40 Resp 24 10/19/24 07:40 BP 131/65 10/19/24 07:40 Pulse Ox 99 10/19/24 07:40 FiO2 Intake & Output 10/18/24 10/19/24 10/19/24 18:59 06:59 18:59 Intake Total 400 Output Total 4400 Balance -4000 Weight 66.678 kg Intake: Hemodialysis 400 Output: Hemodialysis 2400 Hemodialysis Net Amount 2000 Other: Voiding Method Toilet # Voids 2 2 2 # Bowel Movements 2 3 1 - Exam Patient is awake, comfortable, no acute distress. Examination of the heart S1 and S2 Examination of the lungs bilateral breath sounds are heard, decreased breath sounds at the bases with basal crackles Abdomen is soft nontender Examination of lower extremities shows chronic edema lower extremities. ICER MACHINE exam grossly intact - Labs CBC & Chem 7: 10/19/24 07:57 10/19/24 07:57 Labs: Abnormal Lab Results - Last 24 Hours (Table) 10/18/24 10/18/24 10/18/24 Range/Units 12:41 14:48 16:27 WBC (3.8-10.6) k/uL RBC (3.80-5.40) m/uL MCV (80.0-100.0) fL Plt Count (150-450) k/uL Lymphocytes # (1.0-4.8) k/uL Sodium (137-145) mmol/L Chloride (98-107) mmol/L Carbon Dioxide (22-30) mmol/L BUN (7-17) mg/dL Creatinine (0.52-1.04) mg/dL Glucose (74-99) mg/dL POC Glucose (mg/dL) 390 H 176 H 159 H (70-110) mg/dL Calcium (8.4-10.2) mg/dL Phosphorus (2.5-4.5) mg/dL C-Reactive Protein (<1.0) mg/dL 10/18/24 10/19/24 10/19/24 Range/Units 20:30 04:43 07:11 WBC (3.8-10.6) k/uL RBC (3.80-5.40) m/uL MCV (80.0-100.0) fL Plt Count (150-450) k/uL Lymphocytes # (1.0-4.8) k/uL Sodium (137-145) mmol/L Chloride (98-107) mmol/L Carbon Dioxide (22-30) mmol/L BUN (7-17) mg/dL Creatinine (0.52-1.04) mg/dL Glucose (74-99) mg/dL POC Glucose (mg/dL) 384 H 277 H 434 H (70-110) mg/dL Calcium (8.4-10.2) mg/dL Phosphorus (2.5-4.5) mg/dL C-Reactive Protein (<1.0) mg/dL 10/19/24 10/19/24 10/19/24 Range/Units 07:57 07:57 11:22 WBC 3.7 L (3.8-10.6) k/uL RBC 3.76 L (3.80-5.40) m/uL MCV 105.6 H (80.0-100.0) fL Plt Count 82 L (150-450) k/uL Lymphocytes # 0.5 L (1.0-4.8) k/uL Sodium 133 L (137-145) mmol/L Chloride 96 L (98-107) mmol/L Carbon Dioxide 10 L (22-30) mmol/L BUN 31 H (7-17) mg/dL Creatinine 2.77 H (0.52-1.04) mg/dL Glucose 457 H (74-99) mg/dL POC Glucose (mg/dL) 221 H (70-110) mg/dL Calcium 7.9 L (8.4-10.2) mg/dL Phosphorus 5.6 H (2.5-4.5) mg/dL C-Reactive Protein 4.6 H (<1.0) mg/dL Assessment and Plan Assessment: 1. End-stage renal disease on hemodialysis on Monday schedule. 2. Metabolic acidosis secondary to diarrhea as well as lactic acidosis and end- stage renal disease 3. Volume overload 4. Diarrhea 5. CKD mineral bone disorder Plan: Repeat hemodialysis today due to severe metabolic acidosis.
--- NOTE | 2024-10-19 12:09 | P.PN ---
Subjective Progress Note Date: 10/19/24 Hospital Course: Patient is a 59-year-old female with past medical history of CAD, ischemic car diomyopathy, CABG 2019, EF 10 to 20%, COPD, DM, fibromyalgia, GERD, HLD, HTN, hypothyroidism, osteoarthritis, ESRD on HD M MWF, ESBL UTI 09/2024, who presented to the hospital with shortness of breath, vomiting, diarrhea, generalized weakness. Patient has been having diarrhea for a month so far, has 8-10 brown liquid bowel movements a day, has associated abdominal discomfort that goes away after bowel movement. Also complains of nausea and vomiting, has had around 2 episodes of vomiting a day, early satiety. Was not previously diagnosed with diabetic gastroparesis. Denies recent travels, diet changes, medication changes. Patient missed dialysis on 10/16 due to ongoing diarrhea. ED course: Afebrile, heart rate normal, normotensive, was started on nasal cannula, no documented hypoxia Chest x-ray showed mild pulmonary vascular congestion, small right greater than left pleural effusions with adjacent atelectasis and/or consolidation. EKG with sinus rhythm, premature ventricular complexes, LBBB pattern, QTc 481. Lab work showed leukopenia 2.0, normal hemoglobin, sodium 134, unchanged from before, normal potassium, lactic acid 3.5, magnesium 1.5, troponin negative Patient was admitted to our service for evaluation of shortness of breath secondary to fluid overload due to missed dialysis, metabolic acidosis due to diarrhea, lactic acidosis in the settings of ESRD. Nephrology consulted, hemodialysis 10/18 and 10/19 for severe metabolic acidosis. Ordered acetone serum, will follow-up BMP in the morning Patient continues to complain of nausea and vomiting, ongoing diarrhea, CTA abdomen pelvis without contrast ordered. CRP elevated 4.6, TSH normal 1.78 Pertinent Imaging: No new imaging Subjective: Feels fatigued, ongoing nausea and vomiting, nonbilious nonbloody Pertinent positives and negatives as discussed above, a complete review of systems was performed and all other systems are negative. Vitals Signs Reviewed. General: Ill-appearing, retching on exam Derm: warm, dry, chest HD catheter Head: atraumatic, normocephalic, symmetric Eyes: EOMI, no lid lag, anicteric sclera, pupils equal round reactive to light ENT: Nose and ears atraumatic Neck: No thyromegaly, supple Mouth: no lip lesion, mucus membranes moist Cardiovascular: S1S2 reg, no murmur, no edema Lungs: clear to auscultation bilateral, no rhonchi, no rales, no wheeze, no accessory muscle use Abdominal: soft, generalized tenderness, no guarding, no appreciable organomegaly Ext: no gross muscle atrophy, muscle strength muscle strength 5 out of 5 in all 4 extremities, no contractures, 1+ pitting edema Neuro: CN II-XII grossly intact Psych: Alert, oriented, appropriate affect Data Reviewed Today: Pertinent Labs WBC 2.7, hemoglobin 12.3, stable, platelet count 82, sodium 133, bicarb 10, glucose was ranging 300s Assessment and Plan: Shortness of breath without documented hypoxia secondary to fluid volume overload due to missed HD session Anion gap metabolic acidosis secondary to renal disease Lactic acidosis Hypomagnesemia Leukopenia Thrombocytopenia Prolonged QTc End-stage renal disease on hemodialysis -Nephrology consulted, appreciate recommendations -HD 10/18 and 10/19 for ongoing metabolic acidosis -Check BMP, -Recheck CBC -Avoid QTc prolonging agents Diarrhea Nausea, vomiting, concern for diabetic gastroparesis -Persistent symptoms of nausea, vomiting and diarrhea, will order CT abdomen pelvis without contrast -Fecal calprotectin, ESR, CRP: CRP elevated 4.6, -check cdif, negative -Patient will need to follow-up with GI as outpatient -Did not order Reglan due to prolonged QTc -Ordered a stat level Insulin-dependent diabetes mellitus: Patient takes long-acting 14 units daily, will continue with Accu-Cheks,10 U of levemir, SSI Anemia of chronic disease: Hemoglobin normal and stable Hyperlipidemia Hypothyroid GERD CAD, ischemic cardiomyopathy, status post CABG COPD not in acute exacerbation Congestive heart failure with left ventricular ejection fraction of 15 to 20% on echo 08/28/2024 -Continue home medications for chronic medical conditions CODE STATUS full code DVT prophylaxis: heparin Anticipated discharge date:24-[address]: tbd Objective - Vital Signs Vital signs: Vital Signs Temp 97.9 F 10/19/24 07:40 Pulse 112 H 10/19/24 07:40 Resp 24 10/19/24 07:40 BP 131/65 10/19/24 07:40 Pulse Ox 99 10/19/24 07:40 FiO2 Intake & Output 10/18/24 10/19/24 10/19/24 18:59 06:59 18:59 Intake Total 400 Output Total 4400 Balance -4000 Weight 66.678 kg Intake: Hemodialysis 400 Output: Hemodialysis 2400 Hemodialysis Net Amount 2000 Other: Voiding Method Toilet # Voids 2 2 2 # Bowel Movements 2 3 1 - Labs CBC & Chem 7: 10/19/24 07:57 10/19/24 07:57 Labs: Abnormal Lab Results - Last 24 Hours (Table) 10/18/24 10/18/24 10/18/24 Range/Units 12:41 14:48 16:27 WBC (3.8-10.6) k/uL RBC (3.80-5.40) m/uL MCV (80.0-100.0) fL Plt Count (150-450) k/uL Lymphocytes # (1.0-4.8) k/uL Sodium (137-145) mmol/L Chloride (98-107) mmol/L Carbon Dioxide (22-30) mmol/L BUN (7-17) mg/dL Creatinine (0.52-1.04) mg/dL Glucose (74-99) mg/dL POC Glucose (mg/dL) 390 H 176 H 159 H (70-110) mg/dL Calcium (8.4-10.2) mg/dL Phosphorus (2.5-4.5) mg/dL C-Reactive Protein (<1.0) mg/dL 10/18/24 10/19/24 10/19/24 Range/Units 20:30 04:43 07:11 WBC (3.8-10.6) k/uL RBC (3.80-5.40) m/uL MCV (80.0-100.0) fL Plt Count (150-450) k/uL Lymphocytes # (1.0-4.8) k/uL Sodium (137-145) mmol/L Chloride (98-107) mmol/L Carbon Dioxide (22-30) mmol/L BUN (7-17) mg/dL Creatinine (0.52-1.04) mg/dL Glucose (74-99) mg/dL POC Glucose (mg/dL) 384 H 277 H 434 H (70-110) mg/dL Calcium (8.4-10.2) mg/dL Phosphorus (2.5-4.5) mg/dL C-Reactive Protein (<1.0) mg/dL 10/19/24 10/19/24 10/19/24 Range/Units 07:57 07:57 11:22 WBC 3.7 L (3.8-10.6) k/uL RBC 3.76 L (3.80-5.40) m/uL MCV 105.6 H (80.0-100.0) fL Plt Count 82 L (150-450) k/uL Lymphocytes # 0.5 L (1.0-4.8) k/uL Sodium 133 L (137-145) mmol/L Chloride 96 L (98-107) mmol/L Carbon Dioxide 10 L (22-30) mmol/L BUN 31 H (7-17) mg/dL Creatinine 2.77 H (0.52-1.04) mg/dL Glucose 457 H (74-99) mg/dL POC Glucose (mg/dL) 221 H (70-110) mg/dL Calcium 7.9 L (8.4-10.2) mg/dL Phosphorus 5.6 H (2.5-4.5) mg/dL C-Reactive Protein 4.6 H (<1.0) mg/dL
[2024-10-19] MEDS: IPRATROPIUM-ALBUTEROL 3 ML NEB INHALATION PRN (13:19)
--- NOTE | 2024-10-19 14:12 | CT ---
EXAMINATION TYPE: CT abdomen pelvis wo con DATE OF EXAM: 10/19/2024 1:49 PM COMPARISON: 09/13/2024 CLINICAL INDICATION: Female, 59 years old with history of persistent nausea, vomiting, diarrhea, pers istent nausea, vomiting, diarrhea TECHNIQUE: Axial images were obtained from above the diaphragm to the pubic rami in the axial plane a t 5 mm thick sections. Reconstructed images are reviewed on the computer in the coronal plane. CONTRAST: mL of . Study performed without Oral Contrast DLP: 419.1 mGycm, Automated exposure control for dose reduction was used. FINDINGS: Limited CT sections are obtained the lung bases. There is a small left and moderate right pleural ef fusion within the [id number]. Some compressive atelectasis adjacent is present.. CT ABDOMEN: Liver: Normal Spleen: Normal Pancreas: Normal Adrenal glands: The adrenal glands are normal. Gallbladder: Normal Kidneys: No masses are evident. No hydronephrosis is present. No cysts are present. No renal stone s are evident Aorta: Vascular calcification is within the aorta. Inferior vena cava: Normal. CT PELVIS: Loops of bowel within the abdomen and pelvis are normal. This study is without oral contrast limi ting bowel evaluation. Appendix: What appears to be the appendix is Normal as visualized. Urinary bladder: Mildly diffuse wall thickening. Correlate for cystitis. No air is present on the cur rent exam. Genitourinary structures: Uterus and ovaries are not identified Osseous structures: No suspicious lytic or sclerotic lesions. Degenerative disc changes are present L 4-5 and L1-2 IMPRESSION: 1. Clinical consideration for cystitis. 2. Moderate right and small left pleural effusions, increased from comparison [facility], , 10/19/2024 2:09 PM
[2024-10-19 16:45] LABS: African American GFR (CKD) 19 (>60 ml/min/1.73 sqM); Anion Gap 10 mmol/L; Blood Urea Nitrogen 36 mg/dL (7-17); Calcium 7.7 mg/dL (8.4-10.2); Carbon Dioxide 24 mmol/L (22-30); Chloride 98 mmol/L (98-107); Glucose 156 mg/dL (74-99); Non-African American GFR(CKD) 17 (>60 ml/min/1.73 sqM); Sodium 132 mmol/L (137-145)
[2024-10-19 16:46] LABS: Glucose,Whole Blood 167 mg/dL (70-110)
[2024-10-19 17:47] LABS: African American GFR (CKD) 18 (>60 ml/min/1.73 sqM); Anion Gap 12 mmol/L; Blood Urea Nitrogen 37 mg/dL (7-17); Calcium 7.8 mg/dL (8.4-10.2); Carbon Dioxide 21 mmol/L (22-30); Chloride 98 mmol/L (98-107); Glucose 216 mg/dL (74-99); Non-African American GFR(CKD) 16 (>60 ml/min/1.73 sqM); Potassium 4.1 mmol/L (3.5-5.1); Sodium 131 mmol/L (137-145)
[2024-10-19 22:58] LABS: Glucose,Whole Blood 245 mg/dL (70-110)
[2024-10-20 00:50] LABS: African American GFR (CKD) 30 (>60 ml/min/1.73 sqM); Anion Gap 13 mmol/L; Blood Urea Nitrogen 21 mg/dL (7-17); Calcium 7.4 mg/dL (8.4-10.2); Carbon Dioxide 23 mmol/L (22-30); Chloride 95 mmol/L (98-107); Glucose 260 mg/dL (74-99); Non-African American GFR(CKD) 26 (>60 ml/min/1.73 sqM); Sodium 131 mmol/L (137-145)
[2024-10-20] MEDS: POTASSIUM CHLORIDE ER 20 MEQ TAB.ER PO STA (05:50)
[2024-10-20 06:31] LABS: Glucose,Whole Blood 376 mg/dL (70-110)
[2024-10-20] MEDS: INSULIN DETEMIR (LEVEMIR) 100 UNIT/ML SYR SQ SCH (09:31)
--- NOTE | 2024-10-20 11:11 | P.PN ---
Subjective Progress Note Date: 10/20/24 Hospital Course: Patient is a 59-year-old female with past medical history of CAD, ischemic car diomyopathy, CABG 2019, EF 10 to 20%, COPD, DM, fibromyalgia, GERD, HLD, HTN, hypothyroidism, osteoarthritis, ESRD on HD M MWF, ESBL UTI 09/2024, who presented to the hospital with shortness of breath, vomiting, diarrhea, generalized weakness. Patient has been having diarrhea for a month so far, has 8-10 brown liquid bowel movements a day, has associated abdominal discomfort that goes away after bowel movement. Also complains of nausea and vomiting, has had around 2 episodes of vomiting a day, early satiety. Was not previously diagnosed with diabetic gastroparesis. Denies recent travels, diet changes, medication changes. Patient missed dialysis on 10/16 due to ongoing diarrhea. ED course: Afebrile, heart rate normal, normotensive, was started on nasal cannula, no documented hypoxia Chest x-ray showed mild pulmonary vascular congestion, small right greater than left pleural effusions with adjacent atelectasis and/or consolidation. EKG with sinus rhythm, premature ventricular complexes, LBBB pattern, QTc 481. Lab work showed leukopenia 2.0, normal hemoglobin, sodium 134, unchanged from before, normal potassium, lactic acid 3.5, magnesium 1.5, troponin negative Patient was admitted to our service for evaluation of shortness of breath secondary to fluid overload due to missed dialysis, metabolic acidosis due to diarrhea, lactic acidosis in the settings of ESRD. Nephrology consulted, hemodialysis 10/18 and 10/19 for severe metabolic acidosis. 10/19 patient continues to complain of nausea and vomiting, ongoing diarrhea, CTA abdomen pelvis without contrast ordered. Patient was acidotic, anion gap evaluated, stent positive in a.m., repeat blood work showed significant improvement of acidosis and anion gap closure without insulin drip or hemodialysis, recheck blood work confirmed. Dialyzed, 0.5 L fluid removed CRP elevated 4.6, TSH normal 1.78 10/20: Diarrhea resolved, nausea and vomiting improved, patient is completing 50% of her meals. Patient needs to work with physical therapy to determine discharge plan, order placed on 10/18, no evaluation done Pertinent Imaging: CT abdomen, moderate right and small left pleural effusion, clinical consideration for cystitis Subjective: Feels better today, appetite increased, nausea and vomiting improved significantly, diarrhea resolved. Shortness of breath is improved Pertinent positives and negatives as discussed above, a complete review of systems was performed and all other systems are negative. Vitals Signs Reviewed. General: Ill-appearing, retching on exam Derm: warm, dry, chest HD catheter Head: atraumatic, normocephalic, symmetric Eyes: EOMI, no lid lag, anicteric sclera, pupils equal round reactive to light ENT: Nose and ears atraumatic Neck: No thyromegaly, supple Mouth: no lip lesion, mucus membranes moist Cardiovascular: S1S2 reg, no murmur, no edema Lungs: clear to auscultation bilateral, no rhonchi, no rales, no wheeze, no accessory muscle use Abdominal: soft, generalized tenderness, no guarding, no appreciable organomegaly Ext: no gross muscle atrophy, muscle strength muscle strength 5 out of 5 in all 4 extremities, no contractures, 1+ pitting edema Neuro: CN II-XII grossly intact Psych: Alert, oriented, appropriate affect Data Reviewed Today: Pertinent Labs: Sodium 131, corrected normal, potassium 3.0, blood glucose elevated in the 260s,. . Assessment and Plan: Shortness of breath without documented hypoxia secondary to fluid volume overload due to missed HD session Anion gap metabolic acidosis secondary to renal disease Hypomagnesemia Leukopenia Thrombocytopenia Prolonged QTc End-stage renal disease on hemodialysis -Nephrology consulted, appreciate recommendations -HD 10/18 and 10/19 for ongoing metabolic acidosis -Check BMP -Recheck CBC -Avoid QTc prolonging agents -PT OT evaluation pending for placement Diarrhea resolved Nausea, vomiting, concern for diabetic gastroparesis, improved -Persistent symptoms of nausea, vomiting and diarrhea, will order CT abdomen pelvis without contrast -Fecal calprotectin, ESR normal 22, CRP: CRP elevated 4.6, -check cdif, negative -Patient will need to follow-up with GI as outpatient -Did not order Reglan due to prolonged QTc Insulin-dependent diabetes mellitus: Patient takes long-acting 14 units daily, will continue with Accu-Cheks,10 U of levemir Increased to 12 units divided by 6 units in the morning and 6 at night, SSI Anemia of chronic disease: Hemoglobin normal and stable Hyperlipidemia Hypothyroid GERD CAD, ischemic cardiomyopathy, status post CABG COPD not in acute exacerbation Congestive heart failure with left ventricular ejection fraction of 15 to 20% on echo 08/28/2024 -Continue home medications for chronic medical conditions CODE STATUS full code DVT prophylaxis: heparin Anticipated discharge date:24-[address]: tbd, PT OT evaluation pending since 10/18 Objective - Vital Signs Vital signs: Vital Signs Temp 98.0 F 10/20/24 07:55 Pulse 77 10/20/24 07:55 Resp 20 10/20/24 07:55 BP 137/69 10/20/24 07:55 Pulse Ox 96 10/20/24 07:55 FiO2 Intake & Output 10/19/24 10/20/24 10/20/24 18:59 06:59 18:59 Intake Total 640 Output Total 1400 Balance -760 Intake: Oral 240 Hemodialysis 400 Output: Hemodialysis 900 Hemodialysis Net Amount 500 Other: Voiding Method Toilet Toilet Bedside Commode # Voids 2 3 # Bowel Movements 1 3 - Labs CBC & Chem 7: 10/19/24 07:57 10/20/24 00:14 Labs: Abnormal Lab Results - Last 24 Hours (Table) 10/19/24 10/19/24 10/19/24 Range/Units 11:22 16:26 16:45 Sodium 132 L (137-145) mmol/L Potassium (3.5-5.1) mmol/L Chloride (98-107) mmol/L Carbon Dioxide (22-30) mmol/L BUN 36 H (7-17) mg/dL Creatinine 2.91 H (0.52-1.04) mg/dL Glucose 156 H (74-99) mg/dL POC Glucose (mg/dL) 221 H 167 H (70-110) mg/dL Calcium 7.7 L (8.4-10.2) mg/dL 10/19/24 10/19/24 10/20/24 Range/Units 17:23 22:49 00:14 Sodium 131 L 131 L (137-145) mmol/L Potassium 3.0 L (3.5-5.1) mmol/L Chloride 95 L (98-107) mmol/L Carbon Dioxide 21 L (22-30) mmol/L BUN 37 H 21 H (7-17) mg/dL Creatinine 3.07 H 2.06 H (0.52-1.04) mg/dL Glucose 216 H 260 H (74-99) mg/dL POC Glucose (mg/dL) 245 H (70-110) mg/dL Calcium 7.8 L 7.4 L (8.4-10.2) mg/dL 10/20/24 Range/Units 06:29 Sodium (137-145) mmol/L Potassium (3.5-5.1) mmol/L Chloride (98-107) mmol/L Carbon Dioxide (22-30) mmol/L BUN (7-17) mg/dL Creatinine (0.52-1.04) mg/dL Glucose (74-99) mg/dL POC Glucose (mg/dL) 376 H (70-110) mg/dL Calcium (8.4-10.2) mg/dL
[2024-10-20 11:30] LABS: BUN/Creat Ratio 8.32 Ratio (12.00-20.00); Blood Urea Nitrogen 20.8 mg/dL (9.0-27.0); Calcium 7.6 mg/dL (8.7-10.3); Carbon Dioxide 24.9 mmol/L (21.6-31.8); Chloride 95 mmol/L (96-109); Glucose 319 mg/dL (70-110); Potassium 3.8 mmol/L (3.5-5.5); Sodium 133 mmol/L (135-145)
[2024-10-20 11:39] LABS: Glucose,Whole Blood 117 mg/dL (70-110)
--- NOTE | 2024-10-20 12:35 | P.PN ---
Subjective Patient is seen for f/u for ESRD. S/p hemodialysis yesterday mostly for severe acidosis due to diarrhea. Overall feeling better. Diarrhea seems to have improved. Objective - Vital Signs Vital signs: Vital Signs Temp 98.0 F 10/20/24 07:55 Pulse 77 10/20/24 07:55 Resp 20 10/20/24 07:55 BP 137/69 10/20/24 07:55 Pulse Ox 96 10/20/24 07:55 FiO2 Intake & Output 10/19/24 10/20/24 10/20/24 18:59 06:59 18:59 Intake Total 640 Output Total 1400 Balance -760 Intake: Oral 240 Hemodialysis 400 Output: Hemodialysis 900 Hemodialysis Net Amount 500 Other: Voiding Method Toilet Toilet Bedside Commode # Voids 2 3 # Bowel Movements 1 3 - Exam Patient is awake, comfortable, no acute distress. Examination of the heart S1 and S2 Examination of the lungs bilateral breath sounds are heard, decreased breath sounds at the bases with basal crackles Abdomen is soft nontender Examination of lower extremities shows chronic edema lower extremities. GRAPE PICKER exam grossly intact - Labs CBC & Chem 7: 10/19/24 07:57 10/20/24 03:45 Labs: Abnormal Lab Results - Last 24 Hours (Table) 10/19/24 10/19/24 10/19/24 Range/Units 16:26 16:45 17:23 Sodium 132 L 131 L (137-145) mmol/L Potassium (3.5-5.1) mmol/L Chloride (98-107) mmol/L Carbon Dioxide 21 L (22-30) mmol/L Anion Gap (4.00-12.00) mmol/L BUN 36 H 37 H (7-17) mg/dL Creatinine 2.91 H 3.07 H (0.52-1.04) mg/dL Est GFR (CKD-EPI) (>=60) BUN/Creatinine Ratio (12.00-20.00) Ratio Glucose 156 H 216 H (74-99) mg/dL POC Glucose (mg/dL) 167 H (70-110) mg/dL Calcium 7.7 L 7.8 L (8.4-10.2) mg/dL 10/19/24 10/20/24 10/20/24 Range/Units 22:49 00:14 03:45 Sodium 131 L 133 L (137-145) mmol/L Potassium 3.0 L (3.5-5.1) mmol/L Chloride 95 L 95 L (98-107) mmol/L Carbon Dioxide (22-30) mmol/L Anion Gap 13.10 H (4.00-12.00) mmol/L BUN 21 H (7-17) mg/dL Creatinine 2.06 H 2.5 H (0.52-1.04) mg/dL Est GFR (CKD-EPI) 21 L (>=60) BUN/Creatinine Ratio 8.32 L (12.00-20.00) Ratio Glucose 260 H 319 H (74-99) mg/dL POC Glucose (mg/dL) 245 H (70-110) mg/dL Calcium 7.4 L 7.6 L (8.4-10.2) mg/dL 10/20/24 10/20/24 Range/Units 06:29 11:37 Sodium (137-145) mmol/L Potassium (3.5-5.1) mmol/L Chloride (98-107) mmol/L Carbon Dioxide (22-30) mmol/L Anion Gap (4.00-12.00) mmol/L BUN (7-17) mg/dL Creatinine (0.52-1.04) mg/dL Est GFR (CKD-EPI) (>=60) BUN/Creatinine Ratio (12.00-20.00) Ratio Glucose (74-99) mg/dL POC Glucose (mg/dL) 376 H 117 H (70-110) mg/dL Calcium (8.4-10.2) mg/dL Assessment and Plan Assessment: 1. End-stage renal disease on hemodialysis on Monday schedule. 2. Metabolic acidosis secondary to diarrhea as well as lactic acidosis and end- stage renal disease 3. Volume overload, improved 4. Diarrhea 5. CKD mineral bone disorder Plan: Hemodialysis in a.m.
[2024-10-20 13:01] LABS: African American GFR (CKD) 22 (>60 ml/min/1.73 sqM); Anion Gap 8 mmol/L; Blood Urea Nitrogen 27 mg/dL (7-17); Calcium 7.8 mg/dL (8.4-10.2); Carbon Dioxide 25 mmol/L (22-30); Chloride 97 mmol/L (98-107); Glucose 91 mg/dL (74-99); Non-African American GFR(CKD) 19 (>60 ml/min/1.73 sqM); Potassium 3.5 mmol/L (3.5-5.1); Sodium 130 mmol/L (137-145)
[2024-10-20 16:43] LABS: Glucose,Whole Blood 38 mg/dL (70-110)
[2024-10-20 16:50] LABS: Glucose,Whole Blood 40 mg/dL (70-110)
[2024-10-20 17:17] LABS: Glucose,Whole Blood 75 mg/dL (70-110)
[2024-10-20] MEDS: LOPERAMIDE 2 MG CAP PO PRN (17:34)
[2024-10-20] MEDS: PROCHLORPERAZINE INJ 10 MG/2 ML VIAL IVP PRN (17:51)
[2024-10-20 21:49] LABS: Glucose,Whole Blood 221 mg/dL (70-110)
[2024-10-21 06:53] LABS: Glucose,Whole Blood 36 mg/dL (70-110)
[2024-10-21 07:19] LABS: Glucose,Whole Blood 65 mg/dL (70-110)
[2024-10-21 07:48] LABS: Glucose,Whole Blood 87 mg/dL (70-110)
--- NOTE | 2024-10-21 10:42 | P.PN ---
Subjective Patient is seen in follow-up for end-stage renal disease. Tolerating dialysis well. Had 4-5 loose bowel movements last night. Vital signs are stable. General: No acute distress. HEENT: Head exam is unremarkable. LUNGS: No audible rhonchi or wheezes. HEART: Rate and Rhythm are regular. ABDOMEN: Nontender. EXTREMITITES: No edema. Objective - Vital Signs Vital signs: Vital Signs Temp 97.7 F 10/21/24 07:10 Pulse 73 10/21/24 07:10 Resp 20 10/21/24 07:10 BP 128/61 10/21/24 07:10 Pulse Ox 97 10/21/24 07:10 FiO2 Intake & Output 10/20/24 10/21/24 10/21/24 18:59 06:59 18:59 Other: Voiding Method Toilet Toilet Bedside Commode # Voids 2 2 # Bowel Movements 2 1 - Labs CBC & Chem 7: 10/19/24 07:57 10/20/24 12:22 Labs: Abnormal Lab Results - Last 24 Hours (Table) 10/20/24 10/20/24 10/20/24 Range/Units 03:45 11:37 12:22 Sodium 133 L 130 L (135-145) mmol/L Chloride 95 L 97 L (96-109) mmol/L Anion Gap 13.10 H (4.00-12.00) mmol/L BUN 27 H (7-17) mg/dL Creatinine 2.5 H 2.64 H (0.6-1.5) mg/dL Est GFR (CKD-EPI) 21 L (>=60) BUN/Creatinine Ratio 8.32 L (12.00-20.00) Ratio Glucose 319 H (70-110) mg/dL POC Glucose (mg/dL) 117 H (70-110) mg/dL Calcium 7.6 L 7.8 L (8.7-10.3) mg/dL 10/20/24 10/20/24 10/20/24 Range/Units 16:38 16:47 21:38 Sodium (135-145) mmol/L Chloride (96-109) mmol/L Anion Gap (4.00-12.00) mmol/L BUN (7-17) mg/dL Creatinine (0.6-1.5) mg/dL Est GFR (CKD-EPI) (>=60) BUN/Creatinine Ratio (12.00-20.00) Ratio Glucose (70-110) mg/dL POC Glucose (mg/dL) 38 L* 40 L* 221 H (70-110) mg/dL Calcium (8.7-10.3) mg/dL 10/21/24 10/21/24 Range/Units 06:47 07:18 Sodium (135-145) mmol/L Chloride (96-109) mmol/L Anion Gap (4.00-12.00) mmol/L BUN (7-17) mg/dL Creatinine (0.6-1.5) mg/dL Est GFR (CKD-EPI) (>=60) BUN/Creatinine Ratio (12.00-20.00) Ratio Glucose (70-110) mg/dL POC Glucose (mg/dL) 36 L* 65 L (70-110) mg/dL Calcium (8.7-10.3) mg/dL Assessment and Plan Plan: Assessment: 1. End-stage renal disease maintained on hemodialysis on Monday schedule. 2. Diarrhea. C. difficile negative. 3. Coronary disease status post CABG. 4. Diabetes mellitus. 5. Cardiomyopathy with ejection fraction of 15 to 20% with severe mitral regurgitation and tricuspid regurgitation. 6. Metabolic acidosis secondary to chronic kidney disease and GI losses. Improved. Plan: Currently seen while undergoing hemodialysis. Next treatment Monday.
[2024-10-21 11:26] LABS: Glucose,Whole Blood 88 mg/dL (70-110)
[2024-10-21 14:07] VITALS: RESP 16
--- NOTE | 2024-10-21 16:34 | P.DS ---
Providers Date of admission: 10/18/24 10:47 Expected date of discharge: 10/21/24 Attending physician: Jessica Posadas MD Consults: 10/18/24 10:47 Consult Physician Urgent Consulting Provider: Kenia Sevilla Consult Reason/Comments: Dialysis Do you want consulting provider notified?: Yes [facility] [place] [facility] Course: Discharge diagnosis; Shortness of breath without documented hypoxia secondary to fluid volume overload due to missed HD session Chronic hypoxic respiratory failure Anion gap metabolic acidosis secondary to renal disease End-stage renal disease on hemodialysis Chronic diarrhea Nausea, vomiting Hypomagnesemia Leukopenia Thrombocytopenia Prolonged QTc Insulin-dependent diabetes mellitus Anemia of chronic disease Hyperlipidemia Hypothyroid GERD CAD, ischemic cardiomyopathy, status post CABG COPD Hospital course; Patient is a 59-year-old female with past medical history of CAD, ischemic cardiomyopathy, CABG 2019, EF 10 to 20%, COPD, DM, fibromyalgia, GERD, HLD, HTN, hypothyroidism, osteoarthritis, ESRD on HD M MWF, ESBL UTI 09/2024, who presented to the hospital with shortness of breath, vomiting, diarrhea, generalized weakness. Patient has been having diarrhea for a month so far, has 8-10 brown liquid bowel movements a day, has associated abdominal discomfort that goes away after bowel movement. Also complains of nausea and vomiting, has had around 2 episodes of vomiting a day, early satiety. Was not previously diagnosed with diabetic gastroparesis. Denies recent travels, diet changes, medication changes. Patient missed dialysis on 10/16 due to ongoing diarrhea. ED course: Afebrile, heart rate normal, normotensive, was started on nasal cannula, no documented hypoxia Chest x-ray showed mild pulmonary vascular congestion, small right greater than left pleural effusions with adjacent atelectasis and/or consolidation. EKG with sinus rhythm, premature ventricular complexes, LBBB pattern, QTc 481. Lab work showed leukopenia 2.0, normal hemoglobin, sodium 134, unchanged from before, normal potassium, lactic acid 3.5, magnesium 1.5, troponin negative Patient was admitted to our service for evaluation of shortness of breath secondary to fluid overload due to missed dialysis, metabolic acidosis due to diarrhea, lactic acidosis in the settings of ESRD. During hospital stay patient treated for shortness of breath due to missed HD. She initially had hemodialysis on 10/18, 10/19 and again on 10/21. After hemodia lysis shortness of breath improved. During stay she was also treated for diarrhea nausea and vomiting which seems to be chronic in nature. C. difficile negative, fecal calprotectin 282. CT abdomen without contrast findings of no bowel pathology. Patient is discharged in stable condition to home. Insulin glargine changed to 6 units subcu daily. She is to continue her home meds. She is to follow-up with nephrology, and her PCP. She may also warrant further diarrhea workup by foreign collection clerk. Physical exam: Vitals Signs Reviewed. General: Ill-appearing Derm: warm, dry, chest HD catheter Head: atraumatic, normocephalic, symmetric Eyes: EOMI, no lid lag, anicteric sclera, pupils equal round reactive to light ENT: Nose and ears atraumatic Neck: No thyromegaly, supple Mouth: no lip lesion, mucus membranes moist Cardiovascular: S1S2 reg, no murmur, no edema Lungs: clear to auscultation bilateral, no rhonchi, no rales, no wheeze, no accessory muscle use Abdominal: soft, generalized tenderness, no guarding, no appreciable organomegaly Ext: no gross muscle atrophy, muscle strength muscle strength 5 out of 5 in all 4 extremities, no contractures Neuro: CN II-XII grossly intact Psych: Alert, oriented, appropriate affect A total of 36 minutes of time were spent preparing this complex discharge summary. Patient was discharged on 10/21/2024 at 1250. I have seen and evaluated the patient today. Discussed with the resident and agree with the residents finding and plan as documented in the resident's note. Changes highlighted in blue font. Patient Condition at Discharge: Stable Plan - Discharge Summary Discharge Rx Participant: No New Discharge Prescriptions: Continue Ondansetron [Zofran] 4 mg PO Q8H PRN PRN Reason: Nausea And Vomiting traZODone HCL [Desyrel] 50 mg PO HS Aspirin EC [Ecotrin Low Dose] 81 mg PO DAILY Atorvastatin [Lipitor] 40 mg PO HS Acetaminophen Tab [Tylenol] 650 mg PO Q6H PRN PRN Reason: Fever And/ Or Pain Torsemide [Demadex] 40 mg PO DAILY #30 tab Metoprolol Succinate (ER) [Toprol XL] 25 mg PO DAILY #30 tab Loperamide [Imodium] 2 mg PO QID PRN cap PRN Reason: Diarrhea Midodrine [ProAmatine] 5 mg PO BID PRN PRN Reason: Blood Pressure - Low Sacubitril/Valsartan [Entresto 24 mg-26 mg Tablet] 1 tab PO BID Levothyroxine Sodium [Synthroid] 175 mcg PO DAILY Ipratropium-Albuterol Nebulize [Duoneb 0.5 mg-3 mg/3 ml Soln] 3 ml INHALATION RT-Q2H PRN each PRN Reason: Shortness Of Breath Or Wheezing Clopidogrel [Plavix] 75 mg PO DAILY tab Pantoprazole [Protonix] 40 mg PO AC-BRKFST tab Polyvinyl Alcohol/Povidone [Clear Eyes Natural Tears Drop] 1 drop BOTH EYES QID PRN PRN Reason: Dry Eye(S) Ipratropium [place] [Atrovent Hfa] 2 puff INHALATION RT-Q6H PRN PRN Reason: Shortness Of Breath Fluticasone/Umeclidin/Vilanter [Trelegy Ellipta 100-62.5-25] 1 puff INHALATION RT-DAILY Insulin Aspart [NovoLOG Flexpen] See Protocol SQ AC-TID Changed Insulin Glargine,Hum.rec.anlog [Lantus Solostar Pen] 6 units SQ DAILY@1100 #0 Discharge Medication List Levothyroxine Sodium [Synthroid] 175 mcg PO DAILY 02/02/22 [History] Ondansetron [Zofran] 4 mg PO Q8H PRN 02/06/24 [History] traZODone HCL [Desyrel] 50 mg PO HS 02/09/24 [History] Clopidogrel [Plavix] 75 mg PO DAILY tab 03/18/24 [Rx] Ipratropium-Albuterol Nebulize [Duoneb 0.5 mg-3 mg/3 ml Soln] 3 ml INHALATION RT-Q2H PRN each 03/18/24 [Rx] Pantoprazole [Protonix] 40 mg PO AC-BRKFST tab 03/18/24 [Rx] Acetaminophen Tab [Tylenol] 650 mg PO Q6H PRN 06/30/24 [History] Aspirin EC [Ecotrin Low Dose] 81 mg PO DAILY 06/30/24 [History] Atorvastatin [Lipitor] 40 mg PO HS 06/30/24 [History] Fluticasone/Umeclidin/Vilanter [Trelegy Ellipta 100-62.5-25] 1 puff INHALATION RT-DAILY 06/30/24 [History] Ipratropium [place] [Atrovent Hfa] 2 puff INHALATION RT-Q6H PRN 06/30/24 [History] Polyvinyl Alcohol/Povidone [Clear Eyes Natural Tears Drop] 1 drop BOTH EYES QID PRN 06/30/24 [History] Metoprolol Succinate (ER) [Toprol XL] 25 mg PO DAILY #30 tab 07/05/24 [Rx] Torsemide [Demadex] 40 mg PO DAILY #30 tab 07/05/24 [Rx] Insulin Aspart [NovoLOG Flexpen] See Protocol SQ AC-TID 08/26/24 [History] Loperamide [Imodium] 2 mg PO QID PRN cap 09/20/24 [Rx] Midodrine [ProAmatine] 5 mg PO BID PRN 10/18/24 [History] Sacubitril/Valsartan [Entresto 24 mg-26 mg Tablet] 1 tab PO BID 10/18/24 [History] Insulin Glargine,Hum.rec.anlog [Lantus Solostar Pen] 6 units SQ DAILY@1100 #0 10/21/24 [Rx] Follow up Appointment(s)/Referral(s): Kenia Sevilla MD [STAFF PHYSICIAN] - 1 Week (office is not answering at time of discharge. Please call for follow-up appointment.) Papi Saavedra DO [Primary Care Provider] - 10/24/24 9:20 am Patient Instructions/Handouts: Dialysis Diet (DC), Chronic Diarrhea (DC), End Stage Kidney Disease (DC) Activity/Diet/Wound Care/Special Instructions: Please see your PCP for diarrhea, and senior clinical research scientist. Discharge Disposition: HOME SELF-CARE
[2024-10-21 19:37] VITALS: BP 134/74; PULSE 70; TEMP 97.3
[2024-10-21] MEDS ORDERED: INSULIN DETEMIR (LEVEMIR) 100 UNIT/ML SYR SQ SCH (21:00)
== END 2024-10-21 16:12 | disposition home or self-care (01) ==
LOC: EC 07:30 → 5NMEDONC 10:47 → INTOOBSV 10:47 → 4SSUR 14:42
PROVIDERS: ADMIT Student in an Organized Health Care Education/Training Program; ATTEND Student in an Organized Health Care Education/Training Program
DX: I13.2 Hypertensive heart and chronic kidney disease with heart failure and with stage 5 chronic kidney disease, or end stage renal disease (principal); N18.6 End stage renal disease; I50.9 Heart failure, unspecified; J96.11 Chronic respiratory failure with hypoxia; K52.9 Noninfective gastroenteritis and colitis, unspecified; E87.20 Acidosis, unspecified; J44.9 Chronic obstructive pulmonary disease, unspecified; I25.10 Atherosclerotic heart disease of native coronary artery without angina pectoris; K21.9 Gastro-esophageal reflux disease without esophagitis; E83.42 Hypomagnesemia; D72.819 Decreased white blood cell count, unspecified; R94.31 Abnormal electrocardiogram [ECG] [EKG]; E03.9 Hypothyroidism, unspecified; E78.5 Hyperlipidemia, unspecified; E11.40 Type 2 diabetes mellitus with diabetic neuropathy, unspecified; F32.A Depression, unspecified; F41.9 Anxiety disorder, unspecified; E11.22 Type 2 diabetes mellitus with diabetic chronic kidney disease; N25.0 Renal osteodystrophy; D63.1 Anemia in chronic kidney disease; D69.6 Thrombocytopenia, unspecified; R79.82 Elevated C-reactive protein (CRP); I25.5 Ischemic cardiomyopathy; I25.2 Old myocardial infarction; I08.1 Rheumatic disorders of both mitral and tricuspid valves; Z86.73 Personal history of transient ischemic attack (TIA), and cerebral infarction without residual deficits; Z87.891 Personal history of nicotine dependence; Z95.1 Presence of aortocoronary bypass graft; Z99.2 Dependence on renal dialysis; Z79.02 Long term (current) use of antithrombotics/antiplatelets; Z79.4 Long term (current) use of insulin; Z79.51 Long term (current) use of inhaled steroids; Z79.82 Long term (current) use of aspirin; Z79.890 Hormone replacement therapy; Z79.899 Other long term (current) drug therapy; Z88.2 Allergy status to sulfonamides
CPT/HCPCS: 96376 ×3; 96372 ×2; 96374 ×2; 96375; 99285; 36415; 94640; 93005; 97162; 97166; 83880; 80053; 80048 ×2; 85652; 84443; 82009; 83605; 83735 ×2; 84100; 84484; 85025 ×2; 85610; 85730; 86140; 87324; 83993; 71046; 74176; G0378 ×4; S0183 ×2; J0780 ×2; J1644 ×2; J2405 ×2; 90935

== ENCOUNTER 2024-10-25 17:37 | Emergency (ER) | payer MEDICARE ==
--- NOTE | 2024-10-25 18:40 | ED ---
Nausea/Vomiting/Diarrhea HPI - General Chief complaint: Nausea/Vomiting/Diarrhea Stated complaint: NVD Time Seen by Provider: 10/25/24 18:09 Source: patient, family, RN notes reviewed, old records reviewed Mode of arrival: wheelchair Limitations: no limitations - History of Present Illness Initial comments: This is a 59-year-old female with pertinent medical history of end-stage renal disease on hemodialysis Monday, Monday, Monday, uncontrolled diabetes mellitus, heart failure, COPD to the emergency department for complaint of nausea and vomiting today in addition to diarrhea. Patient states that over the past few months she has been experiencing daily loose diarrhea with no hematochezia, melena, mucus. endorses diffuse abdominal pain prior to defecation however defecation relieves pain. Patient has been evaluated recently for similar symptoms where testing has came back unremarkable. Of note, states that she has had a foul odor to her urine and is experienced urinary urgency and is concerned she may have a urinary tract infection. Wally giordano states that she did not complete her full session of dialysis today as she had episodes of diarrhea and returned home. She denies chest pain, heart palpitations, dyspnea. - Related Data Home Medications Medication Instructions Recorded Confirmed Levothyroxine Sodium [Synthroid] 175 mcg PO DAILY 02/02/22 10/18/24 Ondansetron [Zofran] 4 mg PO Q8H PRN 02/06/24 10/18/24 traZODone HCL [Desyrel] 50 mg PO HS 02/09/24 10/18/24 Acetaminophen Tab [Tylenol] 650 mg PO Q6H PRN 06/30/24 10/18/24 Aspirin EC [Ecotrin Low Dose] 81 mg PO DAILY 06/30/24 10/18/24 Atorvastatin [Lipitor] 40 mg PO HS 06/30/24 10/18/24 Fluticasone/Umeclidin/Vilanter 1 puff INHALATION RT-DAILY 06/30/24 10/18/24 [Trelegy Ellipta 100-62.5-25] Ipratropium [place] [Atrovent Hfa] 2 puff INHALATION RT-Q6H PRN 06/30/24 10/18/24 Polyvinyl Alcohol/Povidone [Clear 1 drop BOTH EYES QID PRN 06/30/24 10/18/24 Eyes Natural Tears Drop] Insulin Aspart [NovoLOG Flexpen] See Protocol SQ AC-TID 08/26/24 10/18/24 Midodrine [ProAmatine] 5 mg PO BID PRN 10/18/24 10/18/24 Sacubitril/Valsartan [Entresto 24 1 tab PO BID 10/18/24 10/18/24 mg-26 mg Tablet] Previous Rx's Medication Instructions Recorded Clopidogrel [Plavix] 75 mg PO DAILY tab 03/18/24 Ipratropium-Albuterol Nebulize 3 ml INHALATION RT-Q2H PRN each 03/18/24 [Duoneb 0.5 mg-3 mg/3 ml Soln] Pantoprazole [Protonix] 40 mg PO AC-BRKFST tab 03/18/24 Metoprolol Succinate (ER) [Toprol 25 mg PO DAILY #30 tab 07/05/24 XL] Torsemide [Demadex] 40 mg PO DAILY #30 tab 07/05/24 Loperamide [Imodium] 2 mg PO QID PRN cap 09/20/24 Insulin Glargine,Hum.rec.anlog 6 units SQ DAILY@1100 #0 10/21/24 [Lantus Solostar Pen] Nitrofurantoin Monohyd/M-Cryst 100 mg PO Q12HR #14 cap 10/25/24 [Macrobid] Ondansetron Odt [Zofran Odt] 4 mg PO Q8HR PRN #10 tab 10/25/24 Allergies Allergy/AdvReac Type Severity Reaction Status Date / Time Sulfa (Sulfonamide Allergy Rash/Hives Verified 10/25/24 17:56 Antibiotics) Review of Systems ROS Statement: Those systems with pertinent positive or pertinent negative responses have been documented in the HPI. ROS Other: All systems not noted in ROS Statement are negative. Past Medical History Past Medical History: Coronary Artery Disease (CAD), Chest Pain / Angina, Heart Failure, COPD, CVA/TIA, Diabetes Mellitus, Fibromyalgia, GERD/Reflux, Hyperlipidemia, Hypertension, Liver Disease, Myocardial Infarction (MO), Osteoarthritis (OA), Renal Disease, Thyroid Disorder Additional Past Medical History / Comment(s): NEUROPATHY BILATERAL FEET, DDD NECK AND LOWER BACK, hiatal hernia, states no need for BP med anymore(gets orthostatic hypotension-has "[employer] heart loop monitor"), hx hepatitis as a kid, hx fractrured left wrist, hx stroke 03/03/22-problems with balance since. Last Myocardial Infarction Date:: 02/2024 History of Any Multi-Drug Resistant Organisms: ESBL, MRSA Date of last positivie culture/infection: 09/13/24-ESBL; 2018-MRSA MDRO Source:: ESBL-urine; MRSA-stomach Past Surgical History: Adenoidectomy, Back Surgery, Bladder Surgery, Hysterectomy, Orthopedic Surgery, Tonsillectomy, Tubal Ligation Additional Past Surgical History / Comment(s): Debridement right foot, PICC line placed and later removed, bladder suspension, exploratory laparotomy, right great toe amputation, pins right in foot, cataracts removed, left wrist ORIF, loop heart monitor placed 02/2022. Past Anesthesia/Blood Transfusion Reactions: No Reported Reaction, Motion Sic kness Additional Past Anesthesia/Blood Transfusion Reaction / Comment(s): . Type of Cardiac Device: Loop Past Psychological History: Anxiety, Depression Smoking Status: Former smoker Past Alcohol Use History: Occasional Past Drug Use History: Marijuana, Methamphetamine - Past Family History Sister(s) Family Medical History: Coronary Artery Disease (CAD) Mother Family Medical History: Pulmonary Embolus Additional Family Medical History / Comment(s): . Father Additional Family Medical History / Comment(s): at 26yrs old--accident at work General Exam Limitations: no limitations Eye exam: Present: normal appearance, PERRL, EOMI. Absent: scleral icterus, conjunctival injection, periorbital swelling Neck exam: Present: normal inspection. Absent: tenderness, meningismus, lymphadenopathy Respiratory exam: Present: normal lung sounds bilaterally. Absent: respiratory distress, wheezes, rales, rhonchi, stridor Cardiovascular Exam: Present: regular rate, normal rhythm, normal heart sounds. Absent: systolic murmur, diastolic murmur, rubs, gallop, clicks GI/Abdominal exam: Present: soft, normal bowel sounds. Absent: distended, tenderness, guarding, rebound, rigid Extremities exam: Present: normal inspection, full ROM, normal capillary refill. Absent: tenderness, pedal edema, joint swelling, calf tenderness Course Vital Signs 10/25/24 17:54 Temperature 98.3 F Pulse Rate 75 Respiratory 16 Rate Blood Pressure 116/65 O2 Sat by Pulse 97 Oximetry Medical Decision Making - Medical Decision Making Was pt. sent in by a medical professional or institution (WALLY Olson, SENIOR PL SQL DEVELOPER, urgent care, hospital, or assisted...) When possible be specific @ -No Did you speak to anyone other than the patient for history (EMS, parent, family, police, friend...)? What history was obtained from this source @ -No Did you review nursing and triage notes (agree or disagree)? Why? @ -I reviewed and agree with nursing and triage notes Were old charts reviewed (outside hosp., previous admission, EMS record, old EKG, old radiological studies, urgent care reports/EKG's, assisted records)? Report findings @ -No old charts were reviewed Differential Diagnosis (chest pain, altered mental status, abdominal pain women, abdominal pain men, vaginal bleeding, weakness, fever, dyspnea, syncope, head ache, dizziness, GI bleed, back pain, seizure, CVA, palpatations, mental health, musculoskeletal)? @ -Differential Abdominal Pain Women: Appendicitis, Cholecystitis, diverticulosis, ischemic bowel, pancreatitis, hepatitis, UTI, gastroenteritis, AAA, incarcerated hernia, bowel obstruction, constipation, inflammatory bowel, hepatitis, peptic ulcer disease, splenic infarction, perforated viscus, vulvitis, ovarian torsion, PID, kidney stone, placenta abruption, this is not meant to be an all-inclusive list EKG interpreted by me (3pts min.). @ -none X-rays interpreted by me (1pt min.). @ -None CT interpreted by me (1pt min.). @ -None done U/S interpreted by me (1pt. min.). @ -None done What testing was considered but not performed or refused? (CT, X-rays, U/S, labs)? Why? @ -None What meds were considered but not given or refused? Why? @ -None Did you discuss the management of the patient with other professionals (professionals i.e. WALLY Olson, SENIOR PL SQL DEVELOPER, lab, RT, psych nurse, social sciences lecturer, prison guard supervisor, teacher, supply requirements officer, child support case officer)? Give summary @ -No Was smoking cessation discussed for >3mins.? @ -No Was critical care preformed (if so, how long)? @ -No Were there social determinants of health that impacted care today? How? (Homelessness, low income, unemployed, alcoholism, drug addiction, transportation, low edu. Level, literacy, decrease access to med. care, assisted, rehab)? @ -No Was there de-escalation of care discussed even if they declined (Discuss DNR or withdrawal of care, Hospice)? DNR status @ -No What co-morbidities impacted this encounter? (DM, HTN, Smoking, COPD, CAD, Ca ncer, CVA, ARF, Chemo, Hep., AIDS, mental health diagnosis, sleep apnea, morbid obesity)? @ -None Was patient admitted / discharged? Hospital course, mention meds given and route, prescriptions, significant lab abnormalities, going to OR and other pertinent info. @ -Discharge. 59-year-old female presenting with chronic diarrhea and nausea. Patient is noted to be quite pale on exam, however nontoxic-appearing and vitals are stable. Patient's laboratory testing is remarkable for hyponatremia of 129 that appears chronic, hyperglycemia 317, elevated BUN of 43 and creatinine 2.30. Urinalysis is positive for infection including white cells occasional bacteria and large leukocyte esterase. Fluids are withheld at this time as patient is on hemodialysis due to end-stage renal disease and concern for fluid overload fluids are not given. She is provided with insulin, Rocephin. Macrobid sent to pharmacy for urinary tract infection urine culture sent. Strongly suggest that patient does complete dialysis session on Monday and report back to emergency department for any new or worsening symptoms. Additionally, she is provided with starter pack of Lomotil to take strictly only as needed for severe diarrhea. Case discussed with Dr. Wadsworth Undiagnosed new problem with uncertain prognosis? @ -No Drug Therapy requiring intensive monitoring for toxicity (Heparin, Nitro, Insulin, Cardizem)? @ -No Were any procedures done? @ -No Diagnosis/symptom? @ -chronic diarrhea, UTI Acute, or Chronic, or Acute on Chronic? @ -acute, acute on chronic Uncomplicated (without systemic symptoms) or Complicated (systemic symptoms)? @ -uncomplicated Side effects of treatment? @ -No Exacerbation, Progression, or Severe Exacerbation? @ -No Poses a threat to life or bodily function? How? (Chest pain, USA, MO, pneumonia, PE, COPD, DKA, ARF, appy, cholecystitis, CVA, Diverticulitis, Homicidal, Suicidal, threat to staff... and all critical care pts) @ -No - Lab Data Result diagrams: 10/25/24 19:02 10/25/24 19:13 Lab Results 10/25/24 10/25/24 10/25/24 Range/Units 19:02 19:13 19:51 WBC 7.0 (3.8-10.6) k/uL RBC 4.62 (3.80-5.40) m/uL Hgb 15.0 (11.4-16.0) gm/dL Hct 45.7 (34.0-46.0) % MCV 99.1 D (80.0-100.0) fL MCH 32.4 (25.0-35.0) pg MCHC 32.7 (31.0-37.0) g/dL RDW 15.4 (11.5-15.5) % Plt Count 142 L D (150-450) k/uL MPV 9.1 Neutrophils % 85 % Lymphocytes % 9 % Monocytes % 4 % Eosinophils % 1 % Basophils % 0 % Neutrophils # 5.9 (1.3-7.7) k/uL Lymphocytes # 0.7 L (1.0-4.8) k/uL Monocytes # 0.3 (0-1.0) k/uL Eosinophils # 0.1 (0-0.7) k/uL Basophils # 0.0 (0-0.2) k/uL Macrocytosis Slight Sodium 129 L (137-145) mmol/L Potassium 4.3 (3.5-5.1) mmol/L Chloride 95 L (98-107) mmol/L Carbon Dioxide 24 (22-30) mmol/L Anion Gap 10 mmol/L BUN 43 H (7-17) mg/dL Creatinine 2.30 H (0.52-1.04) mg/dL Est GFR (CKD-EPI)AfAm 26 (>60 ml/min/1.73 sqM) Est GFR (CKD-EPI)NonAf 22 (>60 ml/min/1.73 sqM) Glucose 317 H (74-99) mg/dL Calcium 8.0 L (8.4-10.2) mg/dL Phosphorus 3.7 (2.5-4.5) mg/dL Magnesium 1.6 (1.6-2.3) mg/dL Total Bilirubin 1.2 (0.2-1.3) mg/dL AST 27 (14-36) U/L ALT 16 (4-34) U/L Alkaline Phosphatase 204 H (38-126) U/L Total Protein 6.4 (6.3-8.2) g/dL Albumin 3.1 L (3.5-5.0) g/dL Amylase 34 (30-110) U/L Lipase 19 L (23-300) U/L Urine Color Yellow Urine Appearance Turbid H (Clear) Urine pH 5.5 (5.0-8.0) Ur Specific [place] 1.017 (1.001-1.035) Urine Protein 3+ H (Negative) Urine Glucose (UA) 3+ H (Negative) Urine Ketones 1+ H (Negative) Urine Blood Small H (Negative) Urine Nitrite Negative (Negative) Urine Bilirubin Negative (Negative) Urine Urobilinogen <2.0 (<2.0) mg/dL Ur Leukocyte Esterase Large H (Negative) Urine RBC 8 H (0-5) /hpf Urine WBC >182 H (0-5) /hpf Urine WBC Clumps Many H (None) /hpf Ur Squamous Epith Cells 2 (0-4) /hpf Urine Bacteria Occasional H (None) /hpf Disposition Clinical Impression: Chronic diarrhea, UTI (urinary tract infection) Disposition: HOME SELF-CARE Condition: Stable Instructions (If sedation given, give patient instructions): Urinary Tract Infection in Women (DC) Additional Instructions: Please return to the Emergency Department if symptoms worsen or any other concerns. Complete full course of antibiotics as prescribed. It is important that you report to your dialysis session on Monday. Follow-up with your primary care provider and urologist. Prescriptions: Nitrofurantoin Monohyd/M-Cryst [Macrobid] 100 mg PO Q12HR #14 cap Ondansetron Odt [Zofran Odt] 4 mg PO Q8HR PRN #10 tab PRN Reason: Nausea Is patient prescribed a controlled substance at d/c from ED?: No Referrals: Papi Saavedra DO [Primary Care Provider] - 1-2 days Time of Disposition: 20:41
[2024-10-25 19:15] LABS: Basophils % (A) 0 %; Eosinophils # (A) 0.1 k/uL (0-0.7); Eosinophils % (A) 1 %; HCT 45.7 % (34.0-46.0); Lymphocytes # (A) 0.7 k/uL (1.0-4.8); Lymphocytes % (A) 9 %; MCH 32.4 pg (25.0-35.0); MCHC 32.7 g/dL (31.0-37.0); Macrocytosis Slight; Mean Platelet Volume 9.1; Monocytes # (A) 0.3 k/uL (0-1.0); Monocytes % (A) 4 %; Neutrophils # (A) 5.9 k/uL (1.3-7.7); Neutrophils % (A) 85 %; RBC 4.62 m/uL (3.80-5.40); RDW 15.4 % (11.5-15.5)
[2024-10-25 19:18] LABS: MCV 99.1 fL (80.0-100.0); Platelet Count 142 k/uL (150-450)
[2024-10-25 19:56] LABS: ALT 16 U/L (4-34); AST 27 U/L (14-36); African American GFR (CKD) 26 (>60 ml/min/1.73 sqM); Albumin 3.1 g/dL (3.5-5.0); Alkaline Phosphatase 204 U/L (38-126); Amylase 34 U/L (30-110); Anion Gap 10 mmol/L; Blood Urea Nitrogen 43 mg/dL (7-17); Carbon Dioxide 24 mmol/L (22-30); Chloride 95 mmol/L (98-107); Glucose 317 mg/dL (74-99); Lipase 19 U/L (23-300); Magnesium 1.6 mg/dL (1.6-2.3); Non-African American GFR(CKD) 22 (>60 ml/min/1.73 sqM); Phosphorus 3.7 mg/dL (2.5-4.5); Potassium 4.3 mmol/L (3.5-5.1); Sodium 129 mmol/L (137-145); Total Bilirubin 1.2 mg/dL (0.2-1.3); Total Protein 6.4 g/dL (6.3-8.2)
[2024-10-25 20:21] LABS: Appearance,Urine Turbid (Clear); Bacteria,Urine Occasional /hpf; Bilirubin,Urine Negative (Negative); Blood,Urine Small (Negative); Color,Urine Yellow; Glucose,Urine (UA) 3+ (Negative); Ketones,Urine 1+ (Negative); Leukocyte Esterase,Urine Large (Negative); Nitrite,Urine Negative (Negative); PH, Urine 5.5 (5.0-8.0); Protein,Urine 3+ (Negative); RBC,Urine 8 /hpf (0-5); Specific Gravity,Urine 1.017 (1.001-1.035); Squamous Epithelial Cell,Urine 2 /hpf (0-4); Urobilinogen,Urine <2.0 mg/dL (<2.0); WBC,Urine >182 /hpf (0-5)
[2024-10-25] MEDS: DIPHENOX-ATROP STARTER PACK 8 TAB BTL PO STA (21:21)
[2024-10-25] MEDS: cefTRIAXone IN SWFI 1,000 MG/10 ML SYRINGE IVP STA (21:21)
[2024-10-25] MEDS: INSULIN REGULAR 100 UNIT/ML VIAL (IV) IV ONE (21:22)
[2024-10-25 21:32] VITALS: BP 131/73; PULSE 85; RESP 18; TEMP 98.6
== END 2024-10-25 21:37 | disposition home or self-care (01) ==
LOC: EC 17:37
DX: K52.9 Noninfective gastroenteritis and colitis, unspecified (principal); N39.0 Urinary tract infection, site not specified; Z87.891 Personal history of nicotine dependence; Z86.73 Personal history of transient ischemic attack (TIA), and cerebral infarction without residual deficits; Z88.2 Allergy status to sulfonamides
CPT/HCPCS: 99284; 96374; 36415; 80053; 82150; 83690; 83735; 84100; 85025; 81001; 87086; J0696

== ENCOUNTER 2024-10-27 11:14 | Inpatient (IN) | payer MEDICARE ==
[2024-10-27 12:06] LABS: Basophils % (A) 0 %; Eosinophils # (A) 0.1 k/uL (0-0.7); Eosinophils % (A) 1 %; HCT 36.1 % (34.0-46.0); Hypochromasia Marked; Lymphocytes # (A) 0.6 k/uL (1.0-4.8); Lymphocytes % (A) 9 %; MCH 32.2 pg (25.0-35.0); MCHC 30.3 g/dL (31.0-37.0); Macrocytosis Moderate; Mean Platelet Volume 9.2; Monocytes # (A) 0.2 k/uL (0-1.0); Monocytes % (A) 4 %; Neutrophils # (A) 5.3 k/uL (1.3-7.7); Neutrophils % (A) 85 %; Platelet Count 174 k/uL (150-450); RDW 15.2 % (11.5-15.5); WBC 6.3 k/uL (3.8-10.6)
[2024-10-27] MEDS: SODIUM CHLORIDE 0.9% 500 ML 500 ML IV STA (12:07)
[2024-10-27 12:15] LABS: ALT 15 U/L (4-34); AST 22 U/L (14-36); African American GFR (CKD) 17 (>60 ml/min/1.73 sqM); Alkaline Phosphatase 202 U/L (38-126); Anion Gap 27 mmol/L; Blood Urea Nitrogen 56 mg/dL (7-17); Calcium 8.2 mg/dL (8.4-10.2); Chloride 90 mmol/L (98-107); Lipase 22 U/L (23-300); Magnesium 1.7 mg/dL (1.6-2.3); Non-African American GFR(CKD) 14 (>60 ml/min/1.73 sqM); Potassium 4.3 mmol/L (3.5-5.1); Sodium 126 mmol/L (137-145); Total Bilirubin 0.5 mg/dL (0.2-1.3); Total Protein 5.9 g/dL (6.3-8.2)
[2024-10-27 12:17] LABS: Glucose,Whole Blood 570 mg/dL (70-110)
--- NOTE | 2024-10-27 12:29 | XR ---
EXAMINATION TYPE: XR chest 2V DATE OF EXAM: 10/27/2024 12:14 PM COMPARISON: Chest radiographs from 10/18/2024 CLINICAL INDICATION: Female, 59 years old with history of Chest Pain; TECHNIQUE: XR chest 2V Frontal and lateral views of the chest. FINDINGS: Lungs/Pleura: No evidence of focal consolidation or pneumothorax. Blunting of the costophrenic angles is present. Pulmonary vascularity: Unremarkable. Heart/mediastinum: Cardiomediastinal silhouette is unremarkable. A loop recorder projects over the le ft thorax over the heart. Left atrial appendage occlusion device is present. Musculoskeletal: No acute osseous pathology. Midline sternotomy wires are noted. Other findings: None Lines/Tubes: Right internal jugular central venous catheter with distal tip at the cavoatrial junction. IMPRESSION: No acute cardiopulmonary disease/process. [facility], , 10/27/2024 12:27 PM
[2024-10-27 12:39] LABS: HGB 10.9 gm/dL (11.4-16.0); MCV 106.3 fL (80.0-100.0)
[2024-10-27 12:48] LABS: Partial Thromboplastin Time 26.7 sec (22.0-30.0)
[2024-10-27 12:52] LABS: Carbon Dioxide 9 mmol/L (22-30); NT-Pro-B-Type Natriuretic Pept 41300 pg/mL
[2024-10-27 12:53] LABS: Glucose 681 mg/dL (74-99)
[2024-10-27] MEDS ORDERED: DEXTROSE 50% SYRINGE 50 ML IVP PRN (12:55)
[2024-10-27] MEDS ORDERED: Potassium Replacement Protocol 1 EACH MISC MISCELLANE PRN (12:55)
[2024-10-27] MEDS ORDERED: Magnesium Replacement Protocol 1 EACH MISC MISCELLANE PRN (12:55)
[2024-10-27 13:20] LABS: Glucose,Whole Blood 500 mg/dL (70-110)
[2024-10-27 13:38] LABS: ABG Base Excess -9.3 mmol/L; ABG HCO3 16 mmol/L (21-25); ABG Oxygen Saturation 98.3 % (94-97); ABG PCO2 31 mmHg (35-45); ABG PH 7.31 (7.35-7.45); ABG PO2 107 mmHg (83-108); ABG TCO2 17 mmol/L (19-24); Allen Test Performed? Yes
[2024-10-27] MEDS: INSULIN REGULAR 100 UNIT in SODIUM CHLORIDE 0.9% 100 ML IV SCH (13:44)
--- NOTE | 2024-10-27 13:51 | ED ---
Chest Pain HPI - General Chief Complaint: Chest Pain Stated Complaint: chest pain Time Seen by Provider: 10/27/24 11:20 Source: EMS Mode of arrival: EMS Limitations: no limitations - History of Present Illness Initial Comments: 59-year-old female with past medical history of coronary artery disease status post bypass, end-stage renal disease on hemodialysis who presents to the emergency department reporting chest pain. States that it started this morning when she awoke. Was going on for approximately 1 hour. She had some associated shortness of breath. She does wear home oxygen as needed. She typically goes to dialysis on Monday, Monday and Monday. Patient cannot remember if she went to dialysis on Monday. States she only got a partial treatment on Monday as she had to get up several times to go to the bathroom. Reports to chronic diarrhea. Patient was seen in the emergency department on the for nausea, vomiting and diarrhea. She was diagnosed with urinary tract infection and discharged home on Macrobid. Patient has taken 1 dose of the medication. Patient does continue to make urine. She reports to me that she has been taking her insulin as it is prescribed however EMS checked her sugar and it was greater than 600. Patient has a history of DKA. Patient was given nitro by EMS and states it relieved her pain to a 6 out of 10 - Related Data Home Medications Medication Instructions Recorded Confirmed Levothyroxine Sodium [Synthroid] 175 mcg PO DAILY 02/02/22 10/27/24 traZODone HCL [Desyrel] 50 mg PO HS 02/09/24 10/27/24 Acetaminophen Tab [Tylenol] 650 mg PO Q6H PRN 06/30/24 10/27/24 Aspirin EC [Ecotrin Low Dose] 81 mg PO DAILY 06/30/24 10/27/24 Atorvastatin [Lipitor] 40 mg PO HS 06/30/24 10/27/24 Fluticasone/Umeclidin/Vilanter 1 puff INHALATION RT-DAILY 06/30/24 10/27/24 [Trelegy Ellipta 100-62.5-25] Polyvinyl Alcohol/Povidone [Clear 1 drop BOTH EYES QID PRN 06/30/24 10/27/24 Eyes Natural Tears Drop] Insulin Aspart [NovoLOG Flexpen] See Protocol SQ AC-TID 08/26/24 10/27/24 Sacubitril/Valsartan [Entresto 24 1 tab PO BID 10/18/24 10/27/24 mg-26 mg Tablet] Insulin Glargine,Hum.rec.anlog 6 units SQ DAILY@1100 10/27/24 10/27/24 [Lantus Solostar Pen] Previous Rx's Medication Instructions Recorded Clopidogrel [Plavix] 75 mg PO DAILY tab 03/18/24 Pantoprazole [Protonix] 40 mg PO AC-BRKFST tab 03/18/24 Metoprolol Succinate (ER) [Toprol 25 mg PO DAILY #30 tab 07/05/24 XL] Torsemide [Demadex] 40 mg PO DAILY #30 tab 07/05/24 Loperamide [Imodium] 2 mg PO QID PRN cap 09/20/24 Ondansetron Odt [Zofran ODT] 4 mg PO Q8HR PRN #10 tab 10/25/24 Cholestyramine (with Sugar) 4 gm PO BID@1000,1800 packet 11/05/24 [Questran Packet] DAPTOmycin [Cubicin] 250 mg IVPB Q24HR@1800 6 Days #6 11/05/24 each HYDROcodone/APAP 7.5-325MG [[place] 1 tab PO Q6HR PRN 3 Days #12 tab 11/05/24 7.5-325] Ipratropium-Albuterol Nebulize 3 ml INHALATION RT-QID PRN each 11/05/24 [Duoneb 0.5 mg-3 mg/3 ml Soln] Isosorbide Mononitrate ER [Imdur] 30 mg PO DAILY tab 11/05/24 Midodrine [ProAmatine] 5 mg PO BID 30 Days tablet 11/05/24 Midodrine [ProAmatine] 5 mg PO BID PRN tab 11/05/24 Sertraline [Zoloft] 25 mg PO HS tab 11/05/24 Allergies Allergy/AdvReac Type Severity Reaction Status Date / Time Sulfa (Sulfonamide Allergy Rash/Hives Verified 10/27/24 13:24 Antibiotics) Review of Systems ROS Statement: Those systems with pertinent positive or pertinent negative responses have been documented in the HPI. ROS Other: All systems not noted in ROS Statement are negative. Past Medical History Past Medical History: Coronary Artery Disease (CAD), Chest Pain / Angina, Heart Failure, COPD, CVA/TIA, Diabetes Mellitus, Fibromyalgia, GERD/Reflux, Hyperlipidemia, Hypertension, Liver Disease, Myocardial Infarction (OR), Osteoarthritis (OA), Renal Disease, Thyroid Disorder Additional Past Medical History / Comment(s): NEUROPATHY BILATERAL FEET, DDD NECK AND LOWER BACK, hiatal hernia, states no need for BP med anymore(gets orthostatic hypotension-has "medtronic heart loop monitor"), hx hepatitis as a kid, hx fractrured left wrist, hx stroke 03/03/22-problems with balance since. Last Myocardial Infarction Date:: 02/2024 History of Any Multi-Drug Resistant Organisms: ESBL, MRSA Date of last positivie culture/infection: 09/13/24-ESBL; 2017-MRSA MDRO Source:: ESBL-urine; MRSA-stomach Past Surgical History: Adenoidectomy, Back Surgery, Bladder Surgery, Hysterectomy, Orthopedic Surgery, Tonsillectomy, Tubal Ligation Additional Past Surgical History / Comment(s): Debridement right foot, PICC line placed and later removed, bladder suspension, exploratory laparotomy, right great toe amputation, pins right in foot, cataracts removed, left wrist ORIF, loop heart monitor placed 02/2022. Past Anesthesia/Blood Transfusion Reactions: No Reported Reaction, Motion Sickness Additional Past Anesthesia/Blood Transfusion Reaction / Comment(s): . Type of Cardiac Device: Loop Past Psychological History: Anxiety, Depression Smoking Status: Former smoker Past Alcohol Use History: Occasional Past Drug Use History: Marijuana, Methamphetamine - Past Family History Sister(s) Family Medical History: Coronary Artery Disease (CAD) Mother Family Medical History: Pulmonary Embolus Additional Family Medical History / Comment(s): . Father Additional Family Medical History / Comment(s): at 26yrs old--accident at work General Exam Limitations: no limitations General appearance: alert, in no apparent distress Head exam: Present: atraumatic, normocephalic, normal inspection Eye exam: Present: normal appearance, PERRL, EOMI. Absent: scleral icterus, conjunctival injection, periorbital swelling ENT exam: Present: normal exam, mucous membranes moist Neck exam: Present: normal inspection. Absent: tenderness, meningismus, lymphadenopathy Respiratory exam: Present: normal lung sounds bilaterally. Absent: respiratory distress, wheezes, rales, rhonchi, stridor Cardiovascular Exam: Present: regular rate, normal rhythm, normal heart sounds. Absent: systolic murmur, diastolic murmur, rubs, gallop, clicks GI/Abdominal exam: Present: soft, normal bowel sounds. Absent: distended, tenderness, guarding, rebound, rigid Extremities exam: Present: normal inspection, full ROM, normal capillary refill. Absent: tenderness, pedal edema, joint swelling, calf tenderness Back exam: Present: normal inspection Neurological exam: Present: alert, oriented X3, CN II-XII intact Psychiatric exam: Present: normal affect, normal mood Skin exam: Present: warm, dry, intact, normal color. Absent: rash Course Vital Signs 10/27/24 10/27/24 10/27/24 11:18 12:00 13:19 Temperature 97.4 F L Pulse Rate 85 83 72 Pulse Rate [ 84 Orthodontic Lab Technician ] Respiratory 20 20 18 Rate Blood Pressure 139/66 133/70 128/62 Blood Pressure [Right Arm] O2 Sat by Pulse 100 994 H 100 Oximetry 10/27/24 10/27/24 10/27/24 13:45 14:56 16:16 Temperature Pulse Rate 70 75 81 Pulse Rate [ Orthodontic Lab Technician ] Respiratory 18 18 18 Rate Blood Pressure 123/96 120/78 119/57 Blood Pressure [Right Arm] O2 Sat by Pulse 100 99 99 Oximetry 10/27/24 10/27/24 10/27/24 17:42 18:57 19:54 Temperature Pulse Rate 75 77 80 Pulse Rate [ Orthodontic Lab Technician ] Respiratory 18 18 18 Rate Blood Pressure 112/61 121/76 119/64 Blood Pressure [Right Arm] O2 Sat by Pulse 97 99 99 Oximetry 10/27/24 10/27/24 10/28/24 21:04 21:55 02:18 Temperature Pulse Rate 78 81 77 Pulse Rate [ Orthodontic Lab Technician ] Respiratory 16 16 16 Rate Blood Pressure 115/63 121/56 112/55 Blood Pressure [Right Arm] O2 Sat by Pulse 99 98 Oximetry 10/28/24 10/28/24 10/28/24 04:57 06:30 07:38 Temperature 97.5 F L Pulse Rate 82 83 75 Pulse Rate [ Orthodontic Lab Technician ] Respiratory 18 18 16 Rate Blood Pressure 115/69 108/53 113/54 Blood Pressure [Right Arm] O2 Sat by Pulse 97 96 96 Oximetry 10/28/24 10/28/24 10/28/24 09:29 09:37 10:23 Temperature Pulse Rate 86 82 Pulse Rate [ Orthodontic Lab Technician ] Respiratory 18 20 Rate Blood Pressure 109/55 126/66 Blood Pressure [Right Arm] O2 Sat by Pulse 96 97 98 Oximetry 10/28/24 10/28/24 10/28/24 11:33 13:04 13:22 Temperature Pulse Rate 80 85 80 Pulse Rate [ Orthodontic Lab Technician ] Respiratory 18 20 22 Rate Blood Pressure 102/58 94/46 105/53 Blood Pressure [Right Arm] O2 Sat by Pulse 94 L 94 L 95 Oximetry 10/28/24 10/28/24 10/28/24 17:11 20:00 21:30 Temperature Pulse Rate 88 76 77 Pulse Rate [ Orthodontic Lab Technician ] Respiratory 18 18 16 Rate Blood Pressure 113/62 115/62 117/66 Blood Pressure [Right Arm] O2 Sat by Pulse 98 96 97 Oximetry 10/28/24 10/28/24 23:10 23:31 Temperature 97.8 F 97.3 F L Pulse Rate Pulse Rate [ 81 78 Orthodontic Lab Technician ] Respiratory 16 18 Rate Blood Pressure Blood Pressure 118/62 115/68 [Right Arm] O2 Sat by Pulse 98 Oximetry Chest Pain MDM - MDM Was pt. sent in by a medical professional or institution (, PA, [facility], urgent care, hospital, or halfway...) When possible be specific @ -No Did you speak to anyone other than the patient for history (EMS, parent, family, police, friend...)? What history was obtained from this source @ -Spoke with EMS for history Did you review nursing and triage notes (agree or disagree)? Why? @ -I reviewed and agree with nursing and triage notes Were old charts reviewed (outside hosp., previous admission, EMS record, old EKG, old radiological studies, urgent care reports/EKG's, halfway records)? Report findings @ -No old charts were reviewed Differential Diagnosis (chest pain, altered mental status, abdominal pain women, abdominal pain men, vaginal bleeding, weakness, fever, dyspnea, syncope, headache, dizziness, GI bleed, back pain, seizure, CVA, palpatations, mental health, musculoskeletal)? @ -Differential Chest Pain: Stable Angina, Unstable Angina, STEMI, NSTEMI Aortic Dissection, Pneumothorax, Musculoskeletal, Esophageal Spasm GERD, Cholecystitis, Pancreatitis, Zoster, this is not meant to be an all-inclusive list. EKG interpreted by me (3pts min.). @ -yes and demonstrates sinus rhythm with intraventricular conduction delay. Rate of 84. Parable 187. QRS 151. QTc of 462. No acute ST segment elevation. Left bundle branch block X-rays interpreted by me (1pt min.). @ -Yes which demonstrates no acute process CT interpreted by me (1pt min.). @ -None done U/S interpreted by me (1pt. min.). @ -None done What testing was considered but not performed or refused? (CT, X-rays, U/S, labs)? Why? @ -None What meds were considered but not given or refused? Why? @ -None Did you discuss the management of the patient with other professionals (professionals i.e. , PA, [facility] [employer] [facility], lab, RT, psych nurse, social media marketing analyst, practice managers, teacher, corporate officer, home health care case manager)? Give summary @ -Spoke with Dr. Trevizo for the admission Was smoking cessation discussed for >3mins.? @ -No Was critical care preformed (if so, how long)? @ -Yes, 35 minutes for diagnosis and management of DKA Were there social determinants of health that impacted care today? How? (Homelessness, low income, unemployed, alcoholism, drug addiction, transportation, low edu. Level, literacy, decrease access to med. care, fdc, rehab)? @ -No Was there de-escalation of care discussed even if they declined (Discuss DNR or withdrawal of care, Hospice)? DNR status @ -No What co-morbidities impacted this encounter? (DM, HTN, Smoking, COPD, CAD, Cancer, CVA, ARF, Chemo, Hep., AIDS, mental health diagnosis, sleep apnea, morbid obesity)? @ -Diabetes, end-stage renal disease, coronary disease Was patient admitted / discharged? Hospital course, mention meds given and route, prescriptions, significant lab abnormalities, going to OR and other pertinent info. @ -Upon arrival patient seen and evaluated in room 5. Thorough history and physical exam was performed. Bedside Accu-Chek reads high. Patient was given a 500 bolus but due to history of end-stage renal disease she was not provided much fluid. Laboratory studies are conducted. Patient does meet DKA criteria and therefore was placed on insulin drip. EKG and cardiac enzyme are negative. Recommended admission for DKA management and further evaluation with serial enzymes. Patient was agreeable to this. Spoke with Dr. Trevizo for the admission Undiagnosed new problem with uncertain prognosis? @ -No Drug Therapy requiring intensive monitoring for toxicity (Heparin, Nitro, Insulin, Cardizem)? @ -Insulin Were any procedures done? @ -No Diagnosis/symptom? @ -Acute chest pain, acute DKA, end-stage renal disease on hemodialysis Acute, or Chronic, or Acute on Chronic? @ -Acute Uncomplicated (without systemic symptoms) or Complicated (systemic symptoms)? @ -Complicated Side effects of treatment? @ -No Exacerbation, Progression, or Severe Exacerbation? @ -No Poses a threat to life or bodily function? How? (Chest pain, USA, OR, pneumonia, PE, COPD, DKA, ARF, appy, cholecystitis, CVA, Diverticulitis, Homicidal, Suicidal, threat to staff... and all critical care pts) @ -Yes as patient is in DKA Disposition Clinical Impression: DKA (diabetic ketoacidoses), Chest pain, ESRD (end stage renal disease) on dialysis Disposition: ADMITTED IP TO THIS HOSP Condition: Fair Is patient prescribed a controlled substance at d/c from ED?: No Time of Disposition: 13:51 Decision to Admit Reason: Admit from EC Decision Date: 10/27/24 Decision Time: 13:51
[2024-10-27] MEDS ORDERED: NALOXONE 0.4 MG/ML 1 ML VIAL IV PRN (13:52)
[2024-10-27 14:45] LABS: Glucose,Whole Blood 463 mg/dL (70-110)
[2024-10-27] MEDS ORDERED: NON FORMULARY DRUG (Ipratropium Bromide [Atrovent Hfa] 12.9 GM Hfa.Aer.Ad) INHALATION PRN (14:52)
[2024-10-27] MEDS ORDERED: ACETAMINOPHEN TAB 325 MG TAB PO PRN (14:52)
[2024-10-27] MEDS ORDERED: ARTIFICIAL TEARS-HYPROMELLOSE DROPS 15 ML BTL BOTH EYES PRN (14:52)
[2024-10-27] MEDS: LOPERAMIDE 2 MG CAP PO PRN (15:15)
[2024-10-27 16:17] LABS: Glucose,Whole Blood 329 mg/dL (70-110)
[2024-10-27] MEDS ORDERED: IOPAMIDOL CONTRAST (ORAL USE) VIAL PO PRN (16:18)
[2024-10-27] MEDS: ONDANSETRON ODT 4 MG TAB PO PRN (16:21)
[2024-10-27] MEDS ORDERED: IPRATROPIUM-ALBUTEROL 3 ML NEB INHALATION PRN (16:30)
--- NOTE | 2024-10-27 16:31 | P.HPIM ---
History of Present Illness H&P Date: 10/27/24 59-year-old female with PMH of CAD with ischemic cardiomyopathy with EF of 15 to 20%, COPD, ESRD on dialysis MWF via R chest catheter, diabetes mellitus, fibromyalgia, GERD, hyperlipidemia, hypertension, and osteoarthritis presented to the emergency department for chest pain. Started on 9:30AM, woke her up from sleep. Pain is intermittent, pressure like in nature, left sided and radiates to the right arm and neck. Pain is associated with shortness of breath. No changes with movement or deep inspiration. Patient reports missing her Wed and Fri dialysis session due to diarrhea (ongoing for the past 2 months). She reports poor appetite and despite not eating much her blood glucose has been running high. She reports intermittent nausea and vomiting. Previously admitted from 09/13-09/20 for treatment of emphysematous cystitis with micorperforations, Urology recommended evaluation for enterovesical fistula at that time but patient refused. She was discharged to SNF on Ertapenem for 10 days. In the ED she underwent extensive evaluation: BP 139/66, HR 85, RR 20, T 97.4F, 100% on 2L NC. CBC, Coag panel, CMP significant for RBC 3.4, Hg 10.9, MCV 106.3, Na 126, Cl 90, bicarb 9, BUN 56, Cr 3.32, glu 681, Ca 8.2, alk phos 202, alb 3. Lipase 22. Trop 0.03. Acetone positive. ABG pH 7.31, pCO2 31. EKG sinus rhythm with interventricular conduction delay. CXR no acute process. Patient is admitted for further workup and management. General: non toxic, no distress, appears at stated age Derm: warm, dry Head: atraumatic, normocephalic, symmetric Eyes: EOMI, no lid lag, anicteric sclera Mouth: no lip lesion, mucus membranes moist Cardiovascular: S1S2 reg, no murmur Lungs: Clear to auscultation bilateral, no rhonchi, no rales, no accessory muscle use Ext: no gross muscle atrophy, no edema, no contractures Neuro: no focal neuro deficits Psych: Alert, oriented, appropriate affect Based on my assessment of this patient, this patient meets a high complexity level of care. DKA: Start insulin drip. Start D5 1/2 NS w/ KCl at 150 cc/hr. BMP Q4H. Accuchecks Q1H. Hypoglycemic precautions. Telemetry monitoring. Chest pain with history of CAD w/ stenting + CABG: Trend Trop/EKG to rule out ACS. Echo 08/2024 EF 15-20%. ASA 81 mg PO QD. Lipitor 40 mg PO QHS. Plavix 75 mg PO QD. Cardiology consulted. History of emphysematous cystitis with microperforations: Concerns for ongoing infection. Previous UCx grow ESBL. Obtain UA reflex to UCx. Dose of Ertapenem 1g IV x 1. Obtain CT AP with PO contrast. Hyponatremia: Pseudo when corrected for hyperglycemia. ESRD on HD MWF: Nephrology consulted to resume HD. CHF with EF of 15 to 20%: Not in acute exacerbation. Metoprolol 25 mg PO QD. Entresto 1 tab PO BID. Torsemide 40 mg PO QD. Would benefit from Aldactone and AICD. Cardiology consulted. COPD: Not in acute exacerbation. DuoNeb QID PRN for SOB/wheezing. Symbicort 2 INH BID. Spiriva 2 INH QD. GERD: Protonix 40 mg PO QD. Hypothyroid: Synthroid 176 mg PO QD. Hyperlipidemia: Lipitor as above. Hypertension: Metoprolol, Torsemide and Entresto as above. CODE STATUS: FULL CODE DVT Prophylaxis: Heparin SQ GI Prophylaxis: Protonix Designated medical POA if patient is not able to make medical decisions for themselves: Daughter. I have reviewed the following technology sales consultant notes: ED note. I have reviewed the results of the following tests: As above. I have ordered the following tests: As above. I have discussed the care of this patient with the following independent hi storian: Daughter. I have independently interpreted the following test below: CXR. I have discussed the management of this patient with the following physician: Dr. Tyson. Past Medical History Past Medical History: Coronary Artery Disease (CAD), Chest Pain / Angina, Heart Failure, COPD, CVA/TIA, Diabetes Mellitus, Fibromyalgia, GERD/Reflux, Hyperlipidemia, Hypertension, Liver Disease, Myocardial Infarction (ND), Osteoarthritis (OA), Renal Disease, Thyroid Disorder Additional Past Medical History / Comment(s): NEUROPATHY BILATERAL FEET, DDD NECK AND LOWER BACK, hiatal hernia, states no need for BP med anymore(gets orthostatic hypotension-has "[employer] heart loop monitor"), hx hepatitis as a kid, hx fractrured left wrist, hx stroke 03/03/22-problems with balance since. Last Myocardial Infarction Date:: 02/2024 History of Any Multi-Drug Resistant Organisms: ESBL, MRSA Date of last positivie culture/infection: 09/13/24-ESBL; 2018-MRSA MDRO Source:: ESBL-urine; MRSA-stomach Past Surgical History: Adenoidectomy, Back Surgery, Bladder Surgery, Hysterectomy, Orthopedic Surgery, Tonsillectomy, Tubal Ligation Additional Past Surgical History / Comment(s): Debridement right foot, PICC line placed and later removed, bladder suspension, exploratory laparotomy, right great toe amputation, pins right in foot, cataracts removed, left wrist ORIF, loop heart monitor placed 02/2022. Past Anesthesia/Blood Transfusion Reactions: No Reported Reaction, Motion Sickness Additional Past Anesthesia/Blood Transfusion Reaction / Comment(s): . Type of Cardiac Device: Loop Past Psychological History: Anxiety, Depression Smoking Status: Former smoker Past Alcohol Use History: Occasional Past Drug Use History: Marijuana, Methamphetamine - Past Family History Sister(s) Family Medical History: Coronary Artery Disease (CAD) Mother Family Medical History: Pulmonary Embolus Additional Family Medical History / Comment(s): . Father Additional Family Medical History / Comment(s): at 26yrs old--accident at work Medications and Allergies Home Medications Medication Instructions Recorded Confirmed Type Levothyroxine Sodium [Synthroid] 175 mcg PO DAILY 02/02/22 10/27/24 History traZODone HCL [Desyrel] 50 mg PO HS 02/09/24 10/27/24 History Clopidogrel [Plavix] 75 mg PO DAILY tab 03/18/24 10/27/24 Rx Ipratropium-Albuterol Nebulize 3 ml INHALATION RT-Q2H PRN each 03/18/24 10/27/24 Rx [Duoneb 0.5 mg-3 mg/3 ml Soln] Pantoprazole [Protonix] 40 mg PO AC-BRKFST tab 03/18/24 10/27/24 Rx Acetaminophen Tab [Tylenol] 650 mg PO Q6H PRN 06/30/24 10/27/24 History Aspirin EC [Ecotrin Low Dose] 81 mg PO DAILY 06/30/24 10/27/24 History Atorvastatin [Lipitor] 40 mg PO HS 06/30/24 10/27/24 History Fluticasone/Umeclidin/Vilanter 1 puff INHALATION RT-DAILY 06/30/24 10/27/24 History [Trelegy Ellipta 100-62.5-25] Ipratropium [place] [Atrovent Hfa] 2 puff INHALATION RT-Q6H PRN 06/30/24 10/27/24 History Polyvinyl Alcohol/Povidone [Clear 1 drop BOTH EYES QID PRN 06/30/24 10/27/24 History Eyes Natural Tears Drop] Metoprolol Succinate (ER) [Toprol 25 mg PO DAILY #30 tab 07/05/24 10/27/24 Rx XL] Torsemide [Demadex] 40 mg PO DAILY #30 tab 07/05/24 10/27/24 Rx Insulin Aspart [NovoLOG Flexpen] See Protocol SQ AC-TID 08/26/24 10/27/24 History Loperamide [Imodium] 2 mg PO QID PRN cap 09/20/24 10/27/24 Rx Midodrine [ProAmatine] 5 mg PO BID PRN 10/18/24 10/27/24 History Sacubitril/Valsartan [Entresto 24 1 tab PO BID 10/18/24 10/27/24 History mg-26 mg Tablet] Nitrofurantoin Monohyd/M-Cryst 100 mg PO Q12HR #14 cap 10/25/24 10/27/24 Rx [Macrobid] Ondansetron Odt [Zofran Odt] 4 mg PO Q8HR PRN #10 tab 10/25/24 10/27/24 Rx Insulin Glargine,Hum.rec.anlog 6 units SQ DAILY@1100 10/27/24 10/27/24 History [Lantus Solostar Pen] Allergies Allergy/AdvReac Type Severity Reaction Status Date / Time Sulfa (Sulfonamide Allergy Rash/Hives Verified 10/27/24 13:24 Antibiotics) Physical Exam Vitals: Vital Signs Temp Pulse Pulse Resp BP Pulse Ox 10/27/24 14:56 75 18 120/78 99 10/27/24 13:45 70 18 123/96 100 10/27/24 13:19 72 18 128/62 100 10/27/24 12:00 83 84 20 133/70 994 H 10/27/24 11:18 97.4 F L 85 20 139/66 100 Intake and Output 10/27/24 10/27/24 10/27/24 06:59 14:59 22:59 Other: Weight 66.678 kg Results CBC & Chem 7: 10/27/24 11:58 10/27/24 11:58 Labs: Abnormal Lab Results - Last 24 Hours (Table) 10/27/24 10/27/24 10/27/24 Range/Units 11:58 11:58 12:16 RBC 3.40 L (3.80-5.40) m/uL Hgb 10.9 L D (11.4-16.0) gm/dL MCV 106.3 H D (80.0-100.0) fL MCHC 30.3 L (31.0-37.0) g/dL Lymphocytes # 0.6 L (1.0-4.8) k/uL ABG pH (7.35-7.45) ABG pCO2 (35-45) mmHg ABG HCO3 (21-25) mmol/L ABG Total CO2 (19-24) mmol/L ABG O2 Saturation (94-97) % Hemoglobin (11.4-16.0) gm/dL Sodium 126 L (137-145) mmol/L Chloride 90 L (98-107) mmol/L Carbon Dioxide 9 L* (22-30) mmol/L BUN 56 H (7-17) mg/dL Creatinine 3.32 H (0.52-1.04) mg/dL Glucose 681 H* (74-99) mg/dL POC Glucose (mg/dL) 570 H* (70-110) mg/dL Calcium 8.2 L (8.4-10.2) mg/dL Alkaline Phosphatase 202 H (38-126) U/L Total Protein 5.9 L (6.3-8.2) g/dL Albumin 3.0 L (3.5-5.0) g/dL Lipase 22 L (23-300) U/L 10/27/24 10/27/24 10/27/24 Range/Units 13:19 13:34 14:43 RBC (3.80-5.40) m/uL Hgb (11.4-16.0) gm/dL MCV (80.0-100.0) fL MCHC (31.0-37.0) g/dL Lymphocytes # (1.0-4.8) k/uL ABG pH 7.31 L (7.35-7.45) ABG pCO2 31 L (35-45) mmHg ABG HCO3 16 L (21-25) mmol/L ABG Total CO2 17 L (19-24) mmol/L ABG O2 Saturation 98.3 H (94-97) % Hemoglobin 10.4 L (11.4-16.0) gm/dL Sodium (137-145) mmol/L Chloride (98-107) mmol/L Carbon Dioxide (22-30) mmol/L BUN (7-17) mg/dL Creatinine (0.52-1.04) mg/dL Glucose (74-99) mg/dL POC Glucose (mg/dL) 500 H 463 H (70-110) mg/dL Calcium (8.4-10.2) mg/dL Alkaline Phosphatase (38-126) U/L Total Protein (6.3-8.2) g/dL Albumin (3.5-5.0) g/dL Lipase (23-300) U/L
[2024-10-27 16:32] LABS: Basophils % (A) 0 %; Eosinophils # (A) 0.1 k/uL (0-0.7); Eosinophils % (A) 1 %; HCT 33.8 % (34.0-46.0); HGB 10.9 gm/dL (11.4-16.0); Hypochromasia Slight; Lymphocytes # (A) 0.9 k/uL (1.0-4.8); Lymphocytes % (A) 14 %; MCHC 32.2 g/dL (31.0-37.0); MCV 102.4 fL (80.0-100.0); Macrocytosis Slight; Mean Platelet Volume 8.1; Monocytes # (A) 0.4 k/uL (0-1.0); Monocytes % (A) 5 %; Neutrophils # (A) 5.1 k/uL (1.3-7.7); Neutrophils % (A) 78 %; Platelet Count 169 k/uL (150-450); RDW 14.9 % (11.5-15.5); WBC 6.6 k/uL (3.8-10.6)
[2024-10-27 16:39] LABS: African American GFR (CKD) 18 (>60 ml/min/1.73 sqM); Anion Gap 14 mmol/L; Blood Urea Nitrogen 58 mg/dL (7-17); Carbon Dioxide 20 mmol/L (22-30); Chloride 94 mmol/L (98-107); Glucose 324 mg/dL (74-99); Non-African American GFR(CKD) 16 (>60 ml/min/1.73 sqM); Potassium 3.5 mmol/L (3.5-5.1); Sodium 128 mmol/L (137-145)
[2024-10-27 17:24] LABS: Glucose,Whole Blood 236 mg/dL (70-110)
[2024-10-27] MEDS: D5-0.45% NACL WITH KCL 20MEQ/L 1,000 ML IV SCH (17:36)
[2024-10-27] MEDS: ERTAPENEM 1 GM in SODIUM CHLORIDE 0.9% 50 ML IVPB ONE (17:36)
[2024-10-27] MEDS: HYDROcodone/APAP 7.5-325MG 1 EACH TAB PO PRN (17:52)
[2024-10-27 18:26] LABS: Glucose,Whole Blood 188 mg/dL (70-110)
[2024-10-27 19:05] LABS: Appearance,Urine Cloudy (Clear); Bacteria,Urine Occasional /hpf; Bilirubin,Urine Negative (Negative); Blood,Urine Trace (Negative); Color,Urine Yellow; Glucose,Urine (UA) 4+ (Negative); Ketones,Urine 1+ (Negative); Leukocyte Esterase,Urine Large (Negative); Mucus,Urine Rare /hpf; Nitrite,Urine Negative (Negative); Protein,Urine 2+ (Negative); RBC,Urine 2 /hpf (0-5); Specific Gravity,Urine 1.015 (1.001-1.035); Squamous Epithelial Cell,Urine 12 /hpf (0-4); Urobilinogen,Urine <2.0 mg/dL (<2.0); WBC,Urine >182 /hpf (0-5)
--- NOTE | 2024-10-27 19:25 | CT ---
EXAMINATION TYPE: CT abdomen pelvis wo con DATE OF EXAM: 10/27/2024 6:15 PM COMPARISON: 10/19/2024 CLINICAL INDICATION: Female, 59 years old with history of r/o enterovesical fistula; r/o enterovesica l fistula. TECHNIQUE: Axial CT abdomen pelvis wo con;Sagittal and coronal reformats were created on a separate workstation. Contrast used: mL of , (none if empty) Oral contrast used: with Oral Contrast (none if empty) CT DLP: 447.8 mGycm, Automated exposure control for dose reduction was used. FINDINGS: LOWER CHEST: Small right and trace left pleural effusions with associated atelectasis. ABDOMEN LIVER: Unremarkable GALLBLADDER AND BILE DUCTS: Unremarkable. PANCREAS: Unremarkable. SPLEEN: Unremarkable. ADRENAL GLANDS: Unremarkable. KIDNEYS AND URETERS: No evidence of hydronephrosis or renal calculus. The ureters are unremarkable. PELVIS BLADDER: No evidence for gas in the bladder lumen. No evidence for wall thickening or mass given limi tations of exam. REPRODUCTIVE: Unremarkable. ABDOMEN & PELVIS STOMACH AND BOWEL: No evidence of bowel obstruction. Diffuse edema limits evaluation for fistula trac ts. PERITONEUM/RETROPERITONEUM: No evidence of pneumoperitoneum or free fluid. VASCULATURE: No evidence of aortic aneurysm. MUSCULOSKELETAL: No acute osseous abnormalities LYMPH NODES: No gross evidence for lymphadenopathy. SOFT TISSUE/ABDOMINAL WALL: Anasarca of the soft tissues including the omental tissues. IMPRESSION: Noncontrast exam which limits evaluation for enterovesical fistula. There is diffuse anasarca and eder ma throughout the soft tissues which also limits evaluation. No free air in the bladder lumen. The bl adder shirley are not particularly dilated. Consider rectal contrast CT for further evaluation if there remains concern for enterovesical fistula. [facility], , 10/27/2024 7:22 PM
[2024-10-27 19:32] LABS: Glucose,Whole Blood 526 mg/dL (70-110)
[2024-10-27 19:32] LABS: Glucose,Whole Blood 108 mg/dL (70-110)
[2024-10-27 20:27] LABS: Glucose,Whole Blood 78 mg/dL (70-110)
[2024-10-27 21:01] LABS: Glucose,Whole Blood 55 mg/dL (70-110)
[2024-10-27] MEDS: MORPHINE SULFATE 2 MG/ML SYRINGE IVP PRN (21:24)
[2024-10-27] MEDS: SACUBITRIL/VALSARTAN 24 MG-26 MG TABLET PO SCH (21:28)
[2024-10-27] MEDS: ATORVASTATIN 40 MG TAB PO SCH (21:29)
[2024-10-27] MEDS: HEPARIN SODIUM,PORCINE 5,000 UNIT/ML 1 ML VIAL SQ SCH (21:30)
[2024-10-27 21:34] LABS: Glucose,Whole Blood 56 mg/dL (70-110)
[2024-10-27] MEDS: DEXTROSE 50% SYRINGE 50 ML IVP PRN (21:47)
[2024-10-27] MEDS: traZODone HCL 50 MG TAB PO SCH (21:54)
[2024-10-27 22:14] LABS: Glucose,Whole Blood 111 mg/dL (70-110)
[2024-10-27 22:43] LABS: Glucose,Whole Blood 154 mg/dL (70-110)
[2024-10-27 23:06] LABS: Glucose,Whole Blood 167 mg/dL (70-110)
[2024-10-28 00:01] LABS: Glucose,Whole Blood 185 mg/dL (70-110)
[2024-10-28 01:07] LABS: Glucose,Whole Blood 223 mg/dL (70-110)
[2024-10-28 02:04] LABS: Glucose,Whole Blood 177 mg/dL (70-110)
[2024-10-28 02:58] LABS: Glucose,Whole Blood 146 mg/dL (70-110)
[2024-10-28 04:02] LABS: Glucose,Whole Blood 124 mg/dL (70-110)
[2024-10-28 05:39] LABS: Glucose,Whole Blood 122 mg/dL (70-110)
[2024-10-28 05:46] LABS: African American GFR (CKD) 21 (>60 ml/min/1.73 sqM); Anion Gap 8 mmol/L; Blood Urea Nitrogen 57 mg/dL (7-17); Calcium 7.6 mg/dL (8.4-10.2); Carbon Dioxide 23 mmol/L (22-30); Chloride 96 mmol/L (98-107); Glucose 120 mg/dL (74-99); Non-African American GFR(CKD) 18 (>60 ml/min/1.73 sqM); Potassium 4.1 mmol/L (3.5-5.1); Sodium 127 mmol/L (137-145)
[2024-10-28] MEDS: LEVOTHYROXINE 88 MCG TAB PO SCH (06:10)
[2024-10-28 06:34] LABS: Glucose,Whole Blood 226 mg/dL (70-110)
[2024-10-28 07:34] LABS: Glucose,Whole Blood 257 mg/dL (70-110)
[2024-10-28 08:41] LABS: Glucose,Whole Blood 278 mg/dL (70-110)
[2024-10-28 09:30] LABS: Glucose,Whole Blood 241 mg/dL (70-110)
[2024-10-28] MEDS: SYMBICORT 160-4.5 MCG INHALER INHALATION SCH (09:35)
[2024-10-28] MEDS: TIOTROPIUM 2.5 MCG INHALER INHALATION SCH (09:35)
[2024-10-28] MEDS: PANTOPRAZOLE 40 MG TABLET PO SCH (10:23)
[2024-10-28] MEDS: CLOPIDOGREL 75 MG TAB PO SCH (10:25)
[2024-10-28] MEDS: ASPIRIN 81 MG PO SCH (10:25)
[2024-10-28 10:26] LABS: Glucose,Whole Blood 219 mg/dL (70-110)
[2024-10-28] MEDS: ISOSORBIDE MONONITRATE ER 30 MG TAB.ER.24H PO SCH (10:27)
[2024-10-28] MEDS: TORSEMIDE 20 MG TAB PO SCH (10:28)
[2024-10-28] MEDS: METOPROLOL SUCCINATE (ER) 25 MG TAB.ER.24H PO SCH (10:30)
[2024-10-28] MEDS: INSULIN ASPART (NovoLOG) 100 UNIT/ML VIAL SQ SCH (10:34)
[2024-10-28 13:01] LABS: Glucose,Whole Blood 167 mg/dL (70-110)
--- NOTE | 2024-10-28 13:17 | P.CRDCN ---
History of Present Illness History of present illness: HISTORY OF PRESENT ILLNESS: This is a 59-year-old female with a past medical history significant for coronary artery disease with previous CABG, ischemic cardiomyopathy, hypertension, diabetes, and nicotine dependence. Patient follows in the office with Dr. Saunders. We have been asked to see the patient in consultation for chest pain. Patient examined at the bedside in the emergency room by Dr. Sands. Patient presented to the hospital with a chief complaint of chest pain. Patient reports that the pain radiated into both of her arms. Patient also reports that she has been having nausea vomiting, and diarrhea. She did miss her dialysis sessions on Monday and Monday due to diarrhea. At the time of examination she denies any chest pain or shortness of breath. DIAGNOSTICS: - EKG reveals sinus mechanism with IVCD. Baseline artifact. - Chest xray negative for acute process. - Laboratory data: WBC 6.6. Hemoglobin 10.9. Platelet count 169. Sodium 127. BUN 57. Creatinine 2.71. Troponin negative x 3. proBNP 41,300. - Current home cardiac medications include aspirin 81 mg daily, atorvastatin 40 mg at night, Plavix 75 mg daily, metoprolol succinate 25 mg daily, Entresto 24- 26 mg twice a day, Demadex 40 mg daily, midodrine 5 mg twice a day as needed. - Most recent echocardiogram obtained in August 2024 revealed ejection fraction of 15 to 20%, left pleural effusion. Severe TR, mild to moderate AR, severe MR - Cardiac catheterization history: February 2024 revealed calcified coronary arteries. Severe triple-vessel disease. Right dominant system. Mildly elevat ed LVEDP. REVIEW OF SYSTEMS: At the time of my exam: CONSTITUTIONAL: Denies fever or chills. HEENT: Denies blurred vision, vision changes, or eye pain. Denies hemoptysis CARDIOVASCULAR: Denies chest pain. Denies orthopnea. Denies PND. Denies palpitations RESPIRATORY: Denies shortness of breath. GASTROINTESTINAL: Denies abdominal pain. Denies nausea or vomiting. HEMATOLOGIC: Denies bleeding disorders. GENITOURINARY: Denies any blood in urine. SKIN: Denies pruitis. Denies rash. PHYSICAL EXAM: VITAL SIGNS: Reviewed. GENERAL: Well-developed in no acute distress. HEENT: Head is normocephalic. Pupils are equal, round. Sclerae anicteric. Mucous membranes of the mouth are moist. Neck supple. No JVD or thyromegaly LUNGS: Respirations even and unlabored. Lungs essentially clear to auscultation bilaterally. HEART: Regular rate and rhythm. S1 and S2 heard. ABDOMEN: Soft. Nondistended. Nontender. EXTREMITIES: Normal range of motion. No clubbing or cyanosis. Peripheral pulses intact. No lower extremity edema NEUROLOGIC: Awake and alert. Oriented x 3. ASSESSMENT: DKA Chest pain, troponin negative x 3 Coronary artery disease with previous CABG Ischemic cardiomyopathy, 15 to 20% Chronic heart failure with reduced EF, currently not fluid overloaded Valvular heart disease Hypertension Diabetes Nicotine dependence PLAN: An acute coronary event has been ruled out Resume home cardiac medications Obtain limited echo Treatment of DKA per primary medicine Add Imdur 30 mg daily Possible ischemic workup pending patient course Further recommendations pending patient course Nurse practitioner note has been reviewed by physician. Signing provider agrees with the documented findings, assessment, and plan of care documented by ROBOTIC WELDER as a scribe. Past Medical History Past Medical History: Coronary Artery Disease (CAD), Chest Pain / Angina, Heart Failure, COPD, CVA/TIA, Diabetes Mellitus, Fibromyalgia, GERD/Reflux, Hyperlipidemia, Hypertension, Liver Disease, Myocardial Infarction (OR), Osteoarthritis (OA), Renal Disease, Thyroid Disorder Additional Past Medical History / Comment(s): NEUROPATHY BILATERAL FEET, DDD NECK AND LOWER BACK, hiatal hernia, states no need for BP med anymore(gets orthostatic hypotension-has "medtronic heart loop monitor"), hx hepatitis as a kid, hx fractrured left wrist, hx stroke 03/03/22-problems with balance since. Last Myocardial Infarction Date:: 02/2024 History of Any Multi-Drug Resistant Organisms: ESBL, MRSA Date of last positivie culture/infection: 09/13/24-ESBL; 2018-MRSA MDRO Source:: ESBL-urine; MRSA-stomach Past Surgical History: Adenoidectomy, Back Surgery, Bladder Surgery, Hysterectomy, Orthopedic Surgery, Tonsillectomy, Tubal Ligation Additional Past Surgical History / Comment(s): Debridement right foot, PICC line placed and later removed, bladder suspension, exploratory laparotomy, right great toe amputation, pins right in foot, cataracts removed, left wrist ORIF, loop heart monitor placed 02/2022. Past Anesthesia/Blood Transfusion Reactions: No Reported Reaction, Motion Sickness Additional Past Anesthesia/Blood Transfusion Reaction / Comment(s): . Type of Cardiac Device: Loop Past Psychological History: Anxiety, Depression Smoking Status: Former smoker Past Alcohol Use History: Occasional Past Drug Use History: Marijuana, Methamphetamine - Past Family History Sister(s) Family Medical History: Coronary Artery Disease (CAD) Mother Family Medical History: Pulmonary Embolus Additional Family Medical History / Comment(s): . Father Additional Family Medical History / Comment(s): at 26yrs old--accident at work Medications and Allergies Home Medications Medication Instructions Recorded Confirmed Type Levothyroxine Sodium [Synthroid] 175 mcg PO DAILY 02/02/22 10/27/24 History traZODone HCL [Desyrel] 50 mg PO HS 02/09/24 10/27/24 History Clopidogrel [Plavix] 75 mg PO DAILY tab 03/18/24 10/27/24 Rx Ipratropium-Albuterol Nebulize 3 ml INHALATION RT-Q2H PRN each 03/18/24 10/27/24 Rx [Duoneb 0.5 mg-3 mg/3 ml Soln] Pantoprazole [Protonix] 40 mg PO AC-BRKFST tab 03/18/24 10/27/24 Rx Acetaminophen Tab [Tylenol] 650 mg PO Q6H PRN 06/30/24 10/27/24 History Aspirin EC [Ecotrin Low Dose] 81 mg PO DAILY 06/30/24 10/27/24 History Atorvastatin [Lipitor] 40 mg PO HS 06/30/24 10/27/24 History Fluticasone/Umeclidin/Vilanter 1 puff INHALATION RT-DAILY 06/30/24 10/27/24 History [Trelegy Ellipta 100-62.5-25] Ipratropium [place] [Atrovent Hfa] 2 puff INHALATION RT-Q6H PRN 06/30/24 10/27/24 History Polyvinyl Alcohol/Povidone [Clear 1 drop BOTH EYES QID PRN 06/30/24 10/27/24 History Eyes Natural Tears Drop] Metoprolol Succinate (ER) [Toprol 25 mg PO DAILY #30 tab 07/05/24 10/27/24 Rx XL] Torsemide [Demadex] 40 mg PO DAILY #30 tab 07/05/24 10/27/24 Rx Insulin Aspart [NovoLOG Flexpen] See Protocol SQ AC-TID 08/26/24 10/27/24 History Loperamide [Imodium] 2 mg PO QID PRN cap 09/20/24 10/27/24 Rx Midodrine [ProAmatine] 5 mg PO BID PRN 10/18/24 10/27/24 History Sacubitril/Valsartan [Entresto 24 1 tab PO BID 10/18/24 10/27/24 History mg-26 mg Tablet] Nitrofurantoin Monohyd/M-Cryst 100 mg PO Q12HR #14 cap 10/25/24 10/27/24 Rx [Macrobid] Ondansetron Odt [Zofran Odt] 4 mg PO Q8HR PRN #10 tab 10/25/24 10/27/24 Rx Insulin Glargine,Hum.rec.anlog 6 units SQ DAILY@1100 10/27/24 10/27/24 History [Lantus Solostar Pen] Allergies Allergy/AdvReac Type Severity Reaction Status Date / Time Sulfa (Sulfonamide Allergy Rash/Hives Verified 10/27/24 13:24 Antibiotics) Physical Exam Vitals: Vital Signs Temp Pulse Pulse Resp BP Pulse Ox 10/28/24 10:23 82 20 126/66 98 10/28/24 09:37 97 10/28/24 09:29 86 18 109/55 96 10/28/24 07:38 97.5 F L 75 16 113/54 96 10/28/24 06:30 83 18 108/53 96 10/28/24 04:57 82 18 115/69 97 10/28/24 02:18 77 16 112/55 10/27/24 21:55 81 16 121/56 98 10/27/24 21:04 78 16 115/63 99 10/27/24 19:54 80 18 119/64 99 10/27/24 18:57 77 18 121/76 99 10/27/24 17:42 75 18 112/61 97 10/27/24 16:16 81 18 119/57 99 10/27/24 14:56 75 18 120/78 99 10/27/24 13:45 70 18 123/96 100 10/27/24 13:19 72 18 128/62 100 10/27/24 12:00 83 84 20 133/70 994 H 10/27/24 11:18 97.4 F L 85 20 139/66 100 Intake and Output 10/27/24 10/28/24 10/28/24 22:59 06:59 14:59 Intake Total 42.362 8.190 4.991 Balance 42.362 8.190 4.991 Intake: Intake, IV Titration 42.362 8.190 4.991 Amount Insulin Regular 100 unit 42.362 8.190 4.991 In Sodium Chloride 0.9% 100 ml @ 0.1 UNITS/KG/HR 6.734 mls/hr IV .Q15H [facility] Rx#:[id number] Results 10/27/24 16:12 10/28/24 05:00 Cardiac Enzymes 10/27/24 10/27/24 10/27/24 Range/Units 11:58 11:58 16:12 AST 22 (14-36) U/L Troponin I 0.030 0.025 (0.000-0.034) ng/mL 10/27/24 Range/Units 20:24 AST (14-36) U/L Troponin I 0.024 (0.000-0.034) ng/mL Coagulation 10/27/24 Range/Units 11:58 PT 11.0 (10.0-12.5) sec APTT 26.7 (22.0-30.0) sec CBC 10/27/24 10/27/24 Range/Units 11:58 16:12 WBC 6.3 6.6 (3.8-10.6) k/uL RBC 3.40 L 3.30 L (3.80-5.40) m/uL Hgb 10.9 L D 10.9 L (11.4-16.0) gm/dL Hct 36.1 33.8 L (34.0-46.0) % Plt Count 174 169 (150-450) k/uL Comprehensive Metabolic Panel 10/27/24 10/27/24 10/28/24 Range/Units 11:58 16:12 05:00 Sodium 126 L 128 L 127 L (137-145) mmol/L Potassium 4.3 3.5 4.1 (3.5-5.1) mmol/L Chloride 90 L 94 L 96 L (98-107) mmol/L Carbon Dioxide 9 L* 20 L 23 (22-30) mmol/L BUN 56 H 58 H 57 H (7-17) mg/dL Creatinine 3.32 H 3.10 H 2.71 H (0.52-1.04) mg/dL Glucose 681 H* 324 H 120 H (74-99) mg/dL Calcium 8.2 L 7.6 L (8.4-10.2) mg/dL AST 22 (14-36) U/L ALT 15 (4-34) U/L Alkaline Phosphatase 202 H (38-126) U/L Total Protein 5.9 L (6.3-8.2) g/dL Albumin 3.0 L (3.5-5.0) g/dL Current Medications Generic Name Dose Route Start Last Admin Trade Name Freq PRN Reason Stop Dose Admin Acetaminophen 650 mg 10/27/24 14:52 Acetaminophen Tab 325 Mg Tab PO Q6H PRN Fever and/ or Pain Hydrocodone Bitart/Acetaminophen 1 each 10/27/24 16:34 10/28/24 10:30 Hydrocodone/Apap 7.5-325mg 1 Each Tab PO 1 each Q6HR PRN Administration Pain Albuterol/Ipratropium 3 ml 10/27/24 16:30 Ipratropium-Albuterol 3 Ml Neb INHALATION RT-QID PRN Shortness Of Breath Or Wheezing Artificial Tears 1 drops 10/27/24 14:52 Artificial Tears-Hypromellose Drops 15 Ml Btl BOTH EYES QID PRN Dry Eye(s) Aspirin 81 mg 10/28/24 09:00 10/28/24 10:25 Aspirin 81 Mg PO 81 mg DAILY LYNDSAY Administration Atorvastatin Calcium 40 mg 10/27/24 21:00 10/27/24 21:29 Atorvastatin 40 Mg Tab PO 40 mg HS LYNDSAY Administration Budesonide/Formoterol Fumarate 2 puff 10/28/24 08:00 10/28/24 09:35 Symbicort 160-4.5 Mcg Inhaler INHALATION Not Given RT-BID LYNDSAY Clopidogrel Bisulfate 75 mg 10/28/24 09:00 10/28/24 10:25 Clopidogrel 75 Mg Tab PO 75 mg DAILY LYNDSAY Administration Dextrose/Water 25 ml 10/27/24 12:55 10/27/24 21:47 Dextrose 50% Syringe 50 Ml IVP 25 ml PER PROTOCOL PRN Administration Hypoglycemia Protocol Dextrose/Water 50 ml 10/27/24 12:55 Dextrose 50% Syringe 50 Ml IVP PER PROTOCOL PRN Hypoglycemia Protocol Heparin Sodium (Porcine) 5,000 unit 10/27/24 21:00 10/28/24 09:32 Heparin Sodium,Porcine 5,000 Unit/Ml 1 Ml Vial SQ Not Given Q12HR LYNDSAY Potassium Chloride/Dextrose/Sod Cl 1,000 mls @ 50 mls/hr 10/27/24 18:00 10/28/24 10:36 D5%-1/2ns-Kcl 20 Meq/L Iv Solution IV 50 mls/hr .Q20H LYNDSAY Administration Ertapenem 0.5 gm/ Sodium 50 mls @ 100 mls/hr 10/28/24 17:00 Chloride IVPB DAILY@1700 LYNDSAY Protocol Insulin Aspart 0 unit 10/28/24 10:30 10/28/24 10:34 Insulin Aspart (Novolog) 100 Unit/Ml Vial SQ 2 unit [id number] LYNDSAY Administration Protocol Iopamidol 30 ml 10/27/24 16:18 Iopamidol Contrast (Oral Use) Vial PO 10/28/24 16:[address] Scan Isosorbide Mononitrate 30 mg 10/28/24 09:00 10/28/24 10:27 Isosorbide Mononitrate Er 30 Mg Tab.Er.24h PO 30 mg DAILY LYNDSAY Administration Levothyroxine Sodium 176 mcg 10/28/24 06:30 10/28/24 06:10 Levothyroxine 88 Mcg Tab PO 176 mcg 0630 LYNDSAY Administration Loperamide HCl 2 mg 10/27/24 14:52 10/28/24 06:12 Loperamide 2 Mg Cap PO 2 mg QID PRN Administration Diarrhea Metoprolol Succinate 25 mg 10/28/24 09:00 10/28/24 10:30 Metoprolol Succinate (Er) 25 Mg Tab.Er.24h PO 25 mg DAILY LYNDSAY Administration Midodrine 5 mg 10/27/24 14:52 Midodrine 5 Mg Tab PO BID PRN Blood Pressure - Low Miscellaneous Information 1 each 10/27/24 12:55 Magnesium Replacement Protocol 1 Each Misc MISCELLANE DAILY PRN Per Protocol Protocol Miscellaneous Information 1 each 10/27/24 12:55 Potassium Replacement Protocol 1 Each Misc MISCELLANE DAILY PRN Per Protocol Morphine Sulfate 2 mg 10/27/24 16:34 10/28/24 05:40 Morphine Sulfate 2 Mg/Ml Syringe IVP 2 mg Q4HR PRN Administration Pain/Discomfort Naloxone HCl 0.2 mg 10/27/24 13:52 Naloxone 0.4 Mg/Ml 1 Ml Vial IV Q2M PRN Opioid Reversal Ondansetron HCl 4 mg 10/27/24 14:52 10/28/24 05:53 Ondansetron Odt 4 Mg Tab PO 4 mg Q8HR PRN Administration Nausea Pantoprazole Sodium 40 mg 10/28/24 07:30 10/28/24 10:23 Pantoprazole 40 Mg Tablet PO Not Given AC-BRKFST LYNDSAY Sacubitril/Valsartan 1 each 10/27/24 21:00 10/28/24 10:27 Sacubitril/Valsartan 24 Mg-26 Mg Tablet PO 1 each BID LYNDSAY Administration Tiotropium [place] 2 puff 10/28/24 08:00 10/28/24 09:35 Tiotropium 2.5 Mcg Inhaler INHALATION Not Given RT-DAILY LYNDSAY Torsemide 40 mg 10/28/24 09:00 10/28/24 10:28 Torsemide 20 Mg Tab PO 40 mg DAILY LYNDSAY Administration Trazodone HCl 50 mg 10/27/24 21:00 10/27/24 22:26 Trazodone Hcl 50 Mg Tab PO Not Given HS [facility] Intake and Output 10/27/24 10/28/24 10/28/24 22:59 06:59 14:59 Intake Total 42.362 8.190 4.991 Balance 42.362 8.190 4.991 Intake: Intake, IV Titration 42.362 8.190 4.991 Amount Insulin Regular 100 unit 42.362 8.190 4.991 In Sodium Chloride 0.9% 100 ml @ 0.1 UNITS/KG/HR 6.734 mls/hr IV .Q15H [facility] Rx#:[id number] 10/27/24 16:12 10/28/24 05:00
[2024-10-28 13:39] LABS: ALT 12 U/L (4-34); AST 20 U/L (14-36); African American GFR (CKD) 21 (>60 ml/min/1.73 sqM); Albumin 2.5 g/dL (3.5-5.0); Alkaline Phosphatase 183 U/L (38-126); Anion Gap 8 mmol/L; Blood Urea Nitrogen 57 mg/dL (7-17); Calcium 7.9 mg/dL (8.4-10.2); Carbon Dioxide 21 mmol/L (22-30); Chloride 97 mmol/L (98-107); Glucose 214 mg/dL (74-99); Non-African American GFR(CKD) 19 (>60 ml/min/1.73 sqM); Potassium 5.2 mmol/L (3.5-5.1); Sodium 126 mmol/L (137-145); Total Bilirubin 0.6 mg/dL (0.2-1.3); Total Protein 5.6 g/dL (6.3-8.2)
--- NOTE | 2024-10-28 14:29 | P.PN ---
Subjective Progress Note Date: 10/28/24 59-year-old female with PMH of CAD with ischemic cardiomyopathy with EF of 15 to 20%, COPD, ESRD on dialysis MWF via R chest catheter, diabetes mellitus, fibromyalgia, GERD, hyperlipidemia, hypertension, and osteoarthritis presented to the emergency department for chest pain. Started on 9:30AM, woke her up from sleep. Pain is intermittent, pressure like in nature, left sided and radiates to the right arm and neck. Pain is associated with shortness of breath. No changes with movement or deep inspiration. Patient reports missing her Wed and Fri dialysis session due to diarrhea (ongoing for the past 2 months). She reports poor appetite and despite not eating much her blood glucose has been running hi gh. She reports intermittent nausea and vomiting. Previously admitted from 09/13- 09/20 for treatment of emphysematous cystitis with micorperforations, Urology recommended evaluation for enterovesical fistula at that time but patient refused. She was discharged to SNF on Ertapenem for 10 days. In the ED she underwent extensive evaluation: BP 139/66, HR 85, RR 20, T 97.4F, 100% on 2L NC. CBC, Coag panel, CMP significant for RBC 3.4, Hg 10.9, MCV 106.3, Na 126, Cl 90, bicarb 9, BUN 56, Cr 3.32, glu 681, Ca 8.2, alk phos 202, alb 3. Lipase 22. Trop 0.03. Acetone positive. ABG pH 7.31, pCO2 31. EKG sinus rhythm with interventricular conduction delay. CXR no acute process. Patient is admitted for further workup and management. Started on insulin drip and D5 1/2 NS with KCl IV for DKA. DKA resolved and she was transitioned to ISS. Troponins trended 0.03, 0.025, 0.024 and ACS was ruled out. Cardiology consulted, recommended Echo. Patient with complaints of dysuria, started on Ertapenem for h/o ESBL and ID consulted. CT AP with PO contrast ordered given history of emphysematous cystitis with microperforations concerning for enterovesical fistula which showed diffucse anasarca and edema, no free air in the bladder. 10/28 Patient was seen and examined. She reports feeling fatigued and weak. No more chest pain. CMP shows Na 126, K 5.2, Cl 97, bicarb 21, BUN 57, Cr 2.7, glu 214, Ca 7.9, alk phos 183, alb 2.5. UA shows large LE with > 182 WBCs. Antibiotics include Ertapenem 0.5g IV QD. General: non toxic, no distress, appears at stated age Derm: warm, dry Head: atraumatic, normocephalic, symmetric Eyes: EOMI, no lid lag, anicteric sclera Mouth: no lip lesion, mucus membranes moist Cardiovascular: S1S2 reg, no murmur Lungs: Clear to auscultation bilateral, no rhonchi, no rales, no accessory muscle use Ext: no gross muscle atrophy, no edema, no contractures Neuro: no focal neuro deficits Psych: Alert, oriented, appropriate affect Based on my assessment of this patient, this patient meets a high complexity level of care. Chest pain with history of CAD w/ stenting + CABG: ACS ruled out. Echo 08/2024 EF 15-20%. ASA 81 mg PO QD. Lipitor 40 mg PO QHS. Plavix 75 mg PO QD. Cardiology recommends repeat Echo. Cardiology on board. UTI with history of ESBL emphysematous cystitis with microperforations: Concerns for ongoing infection. Previous UCx grow ESBL. Follow UCx. Continue Ertapenem 0.5g IV QD. CT AP as above. ID consultation. DM with hyperglycemia: Off insulin drip transitioned to ISS this morning. Continue ISS + Accuchecks ACHS along with hypoglycemic precautions. ESRD on HD MWF with metabolic acidosis and hyperkalemia: Stop D5 1/2 NS w/ KCl infusion. Hopeful electrolyte correction with HD today. Nephrology on board. CHF with EF of 15 to 20%: Not in acute exacerbation. Metoprolol 25 mg PO QD. Entresto 1 tab PO BID. Torsemide 40 mg PO QD. Would benefit from Aldactone and AICD. Cardiology on board. COPD: Not in acute exacerbation. DuoNeb QID PRN for SOB/wheezing. Symbicort 2 INH BID. Spiriva 2 INH QD. GERD: Protonix 40 mg PO QD. Hypothyroid: Synthroid 176 mg PO QD. Hyperlipidemia: Lipitor as above. Hypertension: Metoprolol, Torsemide and Entresto as above. Resolved: DKA CODE STATUS: FULL CODE DVT Prophylaxis: Heparin SQ GI Prophylaxis: Protonix Designated medical POA if patient is not able to make medical decisions for themselves: Daughter. I have reviewed the following parts consultant notes: Cardiology note. I have reviewed the results of the following tests: BMP, UA. I have ordered the following tests: CBC and BMP in the AM. UCx pending. I have discussed the care of this patient with the following independent historian: I have independently interpreted the following test below: I have discussed the management of this patient with the following physician: Beatriz RUSSO. Objective - Vital Signs Vital signs: Vital Signs Temp 97.5 F L 10/28/24 07:38 Pulse 80 10/28/24 13:22 Resp 22 10/28/24 13:22 BP 105/53 10/28/24 13:22 Pulse Ox 95 10/28/24 13:22 FiO2 Intake & Output 10/27/24 10/28/24 10/28/24 18:59 06:59 18:59 Intake Total 50.552 4.991 Balance 50.552 4.991 Weight 66.678 kg Intake: Intake, IV Titration 50.552 4.991 Amount Insulin Regular 100 unit 50.552 4.991 In Sodium Chloride 0.9% 100 ml @ 0.1 UNITS/KG/HR 6.734 mls/hr IV .Q15H [facility] Rx#:[id number] - Labs CBC & Chem 7: 10/27/24 16:12 10/28/24 13:18 Labs: Abnormal Lab Results - Last 24 Hours (Table) 10/27/24 10/27/24 10/27/24 Range/Units 14:43 16:12 16:12 RBC (3.80-5.40) m/uL Hgb (11.4-16.0) gm/dL Hct (34.0-46.0) % MCV (80.0-100.0) fL Lymphocytes # (1.0-4.8) k/uL Sodium 128 L (137-145) mmol/L Potassium (3.5-5.1) mmol/L Chloride 94 L (98-107) mmol/L Carbon Dioxide 20 L (22-30) mmol/L BUN 58 H (7-17) mg/dL Creatinine 3.10 H (0.52-1.04) mg/dL Glucose 324 H (74-99) mg/dL POC Glucose (mg/dL) 463 H (70-110) mg/dL Calcium (8.4-10.2) mg/dL Phosphorus 4.8 H (2.5-4.5) mg/dL Alkaline Phosphatase (38-126) U/L Total Protein (6.3-8.2) g/dL Albumin (3.5-5.0) g/dL Urine Appearance (Clear) Urine Protein (Negative) Urine Glucose (UA) (Negative) Urine Ketones (Negative) Urine Blood (Negative) Ur Leukocyte Esterase (Negative) Urine WBC (0-5) /hpf Urine WBC Clumps (None) /hpf Ur Squamous Epith Cells (0-4) /hpf Urine Bacteria (None) /hpf Urine Mucus (None) /hpf 10/27/24 10/27/24 10/27/24 Range/Units 16:12 16:16 17:22 RBC 3.30 L (3.80-5.40) m/uL Hgb 10.9 L (11.4-16.0) gm/dL Hct 33.8 L (34.0-46.0) % MCV 102.4 H (80.0-100.0) fL Lymphocytes # 0.9 L (1.0-4.8) k/uL Sodium (137-145) mmol/L Potassium (3.5-5.1) mmol/L Chloride (98-107) mmol/L Carbon Dioxide (22-30) mmol/L BUN (7-17) mg/dL Creatinine (0.52-1.04) mg/dL Glucose (74-99) mg/dL POC Glucose (mg/dL) 329 H 236 H (70-110) mg/dL Calcium (8.4-10.2) mg/dL Phosphorus (2.5-4.5) mg/dL Alkaline Phosphatase (38-126) U/L Total Protein (6.3-8.2) g/dL Albumin (3.5-5.0) g/dL Urine Appearance (Clear) Urine Protein (Negative) Urine Glucose (UA) (Negative) Urine Ketones (Negative) Urine Blood (Negative) Ur Leukocyte Esterase (Negative) Urine WBC (0-5) /hpf Urine WBC Clumps (None) /hpf Ur Squamous Epith Cells (0-4) /hpf Urine Bacteria (None) /hpf Urine Mucus (None) /hpf 10/27/24 10/27/24 10/27/24 Range/Units 18:25 18:41 19:29 RBC (3.80-5.40) m/uL Hgb (11.4-16.0) gm/dL Hct (34.0-46.0) % MCV (80.0-100.0) fL Lymphocytes # (1.0-4.8) k/uL Sodium (137-145) mmol/L Potassium (3.5-5.1) mmol/L Chloride (98-107) mmol/L Carbon Dioxide (22-30) mmol/L BUN (7-17) mg/dL Creatinine (0.52-1.04) mg/dL Glucose (74-99) mg/dL POC Glucose (mg/dL) 188 H 526 H* (70-110) mg/dL Calcium (8.4-10.2) mg/dL Phosphorus (2.5-4.5) mg/dL Alkaline Phosphatase (38-126) U/L Total Protein (6.3-8.2) g/dL Albumin (3.5-5.0) g/dL Urine Appearance Cloudy H (Clear) Urine Protein 2+ H (Negative) Urine Glucose (UA) 4+ H (Negative) Urine Ketones 1+ H (Negative) Urine Blood Trace H (Negative) Ur Leukocyte Esterase Large H (Negative) Urine WBC >182 H (0-5) /hpf Urine WBC Clumps Occasional H (None) /hpf Ur Squamous Epith Cells 12 H (0-4) /hpf Urine Bacteria Occasional H (None) /hpf Urine Mucus Rare H (None) /hpf 10/27/24 10/27/24 10/27/24 Range/Units 21:00 21:33 22:13 RBC (3.80-5.40) m/uL Hgb (11.4-16.0) gm/dL Hct (34.0-46.0) % MCV (80.0-100.0) fL Lymphocytes # (1.0-4.8) k/uL Sodium (137-145) mmol/L Potassium (3.5-5.1) mmol/L Chloride (98-107) mmol/L Carbon Dioxide (22-30) mmol/L BUN (7-17) mg/dL Creatinine (0.52-1.04) mg/dL Glucose (74-99) mg/dL POC Glucose (mg/dL) 55 L 56 L 111 H (70-110) mg/dL Calcium (8.4-10.2) mg/dL Phosphorus (2.5-4.5) mg/dL Alkaline Phosphatase (38-126) U/L Total Protein (6.3-8.2) g/dL Albumin (3.5-5.0) g/dL Urine Appearance (Clear) Urine Protein (Negative) Urine Glucose (UA) (Negative) Urine Ketones (Negative) Urine Blood (Negative) Ur Leukocyte Esterase (Negative) Urine WBC (0-5) /hpf Urine WBC Clumps (None) /hpf Ur Squamous Epith Cells (0-4) /hpf Urine Bacteria (None) /hpf Urine Mucus (None) /hpf 10/27/24 10/27/24 10/27/24 Range/Units 22:41 23:04 23:59 RBC (3.80-5.40) m/uL Hgb (11.4-16.0) gm/dL Hct (34.0-46.0) % MCV (80.0-100.0) fL Lymphocytes # (1.0-4.8) k/uL Sodium (137-145) mmol/L Potassium (3.5-5.1) mmol/L Chloride (98-107) mmol/L Carbon Dioxide (22-30) mmol/L BUN (7-17) mg/dL Creatinine (0.52-1.04) mg/dL Glucose (74-99) mg/dL POC Glucose (mg/dL) 154 H 167 H 185 H (70-110) mg/dL Calcium (8.4-10.2) mg/dL Phosphorus (2.5-4.5) mg/dL Alkaline Phosphatase (38-126) U/L Total Protein (6.3-8.2) g/dL Albumin (3.5-5.0) g/dL Urine Appearance (Clear) Urine Protein (Negative) Urine Glucose (UA) (Negative) Urine Ketones (Negative) Urine Blood (Negative) Ur Leukocyte Esterase (Negative) Urine WBC (0-5) /hpf Urine WBC Clumps (None) /hpf Ur Squamous Epith Cells (0-4) /hpf Urine Bacteria (None) /hpf Urine Mucus (None) /hpf 10/28/24 10/28/24 10/28/24 Range/Units 01:03 02:02 02:56 RBC (3.80-5.40) m/uL Hgb (11.4-16.0) gm/dL Hct (34.0-46.0) % MCV (80.0-100.0) fL Lymphocytes # (1.0-4.8) k/uL Sodium (137-145) mmol/L Potassium (3.5-5.1) mmol/L Chloride (98-107) mmol/L Carbon Dioxide (22-30) mmol/L BUN (7-17) mg/dL Creatinine (0.52-1.04) mg/dL Glucose (74-99) mg/dL POC Glucose (mg/dL) 223 H 177 H 146 H (70-110) mg/dL Calcium (8.4-10.2) mg/dL Phosphorus (2.5-4.5) mg/dL Alkaline Phosphatase (38-126) U/L Total Protein (6.3-8.2) g/dL Albumin (3.5-5.0) g/dL Urine Appearance (Clear) Urine Protein (Negative) Urine Glucose (UA) (Negative) Urine Ketones (Negative) Urine Blood (Negative) Ur Leukocyte Esterase (Negative) Urine WBC (0-5) /hpf Urine WBC Clumps (None) /hpf Ur Squamous Epith Cells (0-4) /hpf Urine Bacteria (None) /hpf Urine Mucus (None) /hpf 10/28/24 10/28/24 10/28/24 Range/Units 04:00 05:00 05:37 RBC (3.80-5.40) m/uL Hgb (11.4-16.0) gm/dL Hct (34.0-46.0) % MCV (80.0-100.0) fL Lymphocytes # (1.0-4.8) k/uL Sodium 127 L (137-145) mmol/L Potassium (3.5-5.1) mmol/L Chloride 96 L (98-107) mmol/L Carbon Dioxide (22-30) mmol/L BUN 57 H (7-17) mg/dL Creatinine 2.71 H (0.52-1.04) mg/dL Glucose 120 H (74-99) mg/dL POC Glucose (mg/dL) 124 H 122 H (70-110) mg/dL Calcium 7.6 L (8.4-10.2) mg/dL Phosphorus (2.5-4.5) mg/dL Alkaline Phosphatase (38-126) U/L Total Protein (6.3-8.2) g/dL Albumin (3.5-5.0) g/dL Urine Appearance (Clear) Urine Protein (Negative) Urine Glucose (UA) (Negative) Urine Ketones (Negative) Urine Blood (Negative) Ur Leukocyte Esterase (Negative) Urine WBC (0-5) /hpf Urine WBC Clumps (None) /hpf Ur Squamous Epith Cells (0-4) /hpf Urine Bacteria (None) /hpf Urine Mucus (None) /hpf 10/28/24 10/28/24 10/28/24 Range/Units 06:30 07:32 08:40 RBC (3.80-5.40) m/uL Hgb (11.4-16.0) gm/dL Hct (34.0-46.0) % MCV (80.0-100.0) fL Lymphocytes # (1.0-4.8) k/uL Sodium (137-145) mmol/L Potassium (3.5-5.1) mmol/L Chloride (98-107) mmol/L Carbon Dioxide (22-30) mmol/L BUN (7-17) mg/dL Creatinine (0.52-1.04) mg/dL Glucose (74-99) mg/dL POC Glucose (mg/dL) 226 H 257 H 278 H (70-110) mg/dL Calcium (8.4-10.2) mg/dL Phosphorus (2.5-4.5) mg/dL Alkaline Phosphatase (38-126) U/L Total Protein (6.3-8.2) g/dL Albumin (3.5-5.0) g/dL Urine Appearance (Clear) Urine Protein (Negative) Urine Glucose (UA) (Negative) Urine Ketones (Negative) Urine Blood (Negative) Ur Leukocyte Esterase (Negative) Urine WBC (0-5) /hpf Urine WBC Clumps (None) /hpf Ur Squamous Epith Cells (0-4) /hpf Urine Bacteria (None) /hpf Urine Mucus (None) /hpf 10/28/24 10/28/2425 Range/Units 09:28 10:24 13:00 RBC (3.80-5.40) m/uL Hgb (11.4-16.0) gm/dL Hct (34.0-46.0) % MCV (80.0-100.0) fL Lymphocytes # (1.0-4.8) k/uL Sodium (137-145) mmol/L Potassium (3.5-5.1) mmol/L Chloride (98-107) mmol/L Carbon Dioxide (22-30) mmol/L BUN (7-17) mg/dL Creatinine (0.52-1.04) mg/dL Glucose (74-99) mg/dL POC Glucose (mg/dL) 241 H 219 H 167 H (70-110) mg/dL Calcium (8.4-10.2) mg/dL Phosphorus (2.5-4.5) mg/dL Alkaline Phosphatase (38-126) U/L Total Protein (6.3-8.2) g/dL Albumin (3.5-5.0) g/dL Urine Appearance (Clear) Urine Protein (Negative) Urine Glucose (UA) (Negative) Urine Ketones (Negative) Urine Blood (Negative) Ur Leukocyte Esterase (Negative) Urine WBC (0-5) /hpf Urine WBC Clumps (None) /hpf Ur Squamous Epith Cells (0-4) /hpf Urine Bacteria (None) /hpf Urine Mucus (None) /hpf 10/28/24 Range/Units 13:18 RBC (3.80-5.40) m/uL Hgb (11.4-16.0) gm/dL Hct (34.0-46.0) % MCV (80.0-100.0) fL Lymphocytes # (1.0-4.8) k/uL Sodium 126 L (137-145) mmol/L Potassium 5.2 H (3.5-5.1) mmol/L Chloride 97 L (98-107) mmol/L Carbon Dioxide 21 L (22-30) mmol/L BUN 57 H (7-17) mg/dL Creatinine 2.70 H (0.52-1.04) mg/dL Glucose 214 H (74-99) mg/dL POC Glucose (mg/dL) (70-110) mg/dL Calcium 7.9 L (8.4-10.2) mg/dL Phosphorus (2.5-4.5) mg/dL Alkaline Phosphatase 183 H (38-126) U/L Total Protein 5.6 L (6.3-8.2) g/dL Albumin 2.5 L (3.5-5.0) g/dL Urine Appearance (Clear) Urine Protein (Negative) Urine Glucose (UA) (Negative) Urine Ketones (Negative) Urine Blood (Negative) Ur Leukocyte Esterase (Negative) Urine WBC (0-5) /hpf Urine WBC Clumps (None) /hpf Ur Squamous Epith Cells (0-4) /hpf Urine Bacteria (None) /hpf Urine Mucus (None) /hpf
--- NOTE | 2024-10-28 15:44 | P.NPCON ---
History of Present Illness - Reason for Consult end stage renal disease - History of Present Illness Reason for consultation: End-stage renal disease History of present illness: Patient is a 59-year-old female seen in renal consultation for end-stage renal disease. Patient was seen and examined in the emergency room. She is maintained on hemodialysis on Monday schedule. Patient came to the hospital due to chest pain which began yesterday morning. Patient describes the pain as heaviness with radiation to her arm and jaw. Patient is being followed by cardiology. Patient states she has been having loose bowel movements. She blood glucose was noted to be above 600 admission. Patient does have history of systolic CHF with ejection fraction of 15 to 20%. She underwent CABG in 2023. Hemodynamically stable. Afebrile. On 2 L nasal cannula. She does make urine. She does have longstanding history of diabetes. Vital signs are stable. General: No acute distress. HEENT: Head exam is unremarkable. On nasal cannula. LUNGS: No audible rhonchi or wheezes. HEART: Rate and Rhythm are regular. ABDOMEN: Nontender. EXTREMITITES: 1+ edema. Past Medical History Past Medical History: Coronary Artery Disease (CAD), Chest Pain / Angina, Heart Failure, COPD, CVA/TIA, Diabetes Mellitus, Fibromyalgia, GERD/Reflux, Hyperlipidemia, Hypertension, Liver Disease, Myocardial Infarction (CO), Osteoarthritis (OA), Renal Disease, Thyroid Disorder Additional Past Medical History / Comment(s): NEUROPATHY BILATERAL FEET, DDD NECK AND LOWER BACK, hiatal hernia, states no need for BP med anymore(gets orthostatic hypotension-has "medtronic heart loop monitor"), hx hepatitis as a kid, hx fractrured left wrist, hx stroke 03/03/22-problems with balance since. Last Myocardial Infarction Date:: 02/2024 History of Any Multi-Drug Resistant Organisms: ESBL, MRSA Date of last positivie culture/infection: 09/13/24-ESBL; 2018-MRSA MDRO Source:: ESBL-urine; MRSA-stomach Past Surgical History: Adenoidectomy, Back Surgery, Bladder Surgery, Hysterectomy, Orthopedic Surgery, Tonsillectomy, Tubal Ligation Additional Past Surgical History / Comment(s): Debridement right foot, PICC line placed and later removed, bladder suspension, exploratory laparotomy, right great toe amputation, pins right in foot, cataracts removed, left wrist ORIF, loop heart monitor placed 02/2022. Past Anesthesia/Blood Transfusion Reactions: No Reported Reaction, Motion Sickness Additional Past Anesthesia/Blood Transfusion Reaction / Comment(s): . Type of Cardiac Device: Loop Past Psychological History: Anxiety, Depression Smoking Status: Former smoker Past Alcohol Use History: Occasional Past Drug Use History: Marijuana, Methamphetamine - Past Family History Sister(s) Family Medical History: Coronary Artery Disease (CAD) Mother Family Medical History: Pulmonary Embolus Additional Family Medical History / Comment(s): . Father Additional Family Medical History / Comment(s): at 26yrs old--accident at work Medications and Allergies Home Medications Medication Instructions Recorded Confirmed Type Levothyroxine Sodium [Synthroid] 175 mcg PO DAILY 02/02/22 10/27/24 History traZODone HCL [Desyrel] 50 mg PO HS 02/09/24 10/27/24 History Clopidogrel [Plavix] 75 mg PO DAILY tab 03/18/24 10/27/24 Rx Ipratropium-Albuterol Nebulize 3 ml INHALATION RT-Q2H PRN each 03/18/24 10/27/24 Rx [Duoneb 0.5 mg-3 mg/3 ml Soln] Pantoprazole [Protonix] 40 mg PO AC-BRKFST tab 03/18/24 10/27/24 Rx Acetaminophen Tab [Tylenol] 650 mg PO Q6H PRN 06/30/24 10/27/24 History Aspirin EC [Ecotrin Low Dose] 81 mg PO DAILY 06/30/24 10/27/24 History Atorvastatin [Lipitor] 40 mg PO HS 06/30/24 10/27/24 History Fluticasone/Umeclidin/Vilanter 1 puff INHALATION RT-DAILY 06/30/24 10/27/24 History [Trelegy Ellipta 100-62.5-25] Ipratropium Zamora [Atrovent Hfa] 2 puff INHALATION RT-Q6H PRN 06/30/24 10/27/24 History Polyvinyl Alcohol/Povidone [Clear 1 drop BOTH EYES QID PRN 06/30/24 10/27/24 History Eyes Natural Tears Drop] Metoprolol Succinate (ER) [Toprol 25 mg PO DAILY #30 tab 07/05/24 10/27/24 Rx XL] Torsemide [Demadex] 40 mg PO DAILY #30 tab 07/05/24 10/27/24 Rx Insulin Aspart [NovoLOG Flexpen] See Protocol SQ AC-TID 08/26/24 10/27/24 History Loperamide [Imodium] 2 mg PO QID PRN cap 09/20/24 10/27/24 Rx Midodrine [ProAmatine] 5 mg PO BID PRN 10/18/24 10/27/24 History Sacubitril/Valsartan [Entresto 24 1 tab PO BID 10/18/24 10/27/24 History mg-26 mg Tablet] Nitrofurantoin Monohyd/M-Cryst 100 mg PO Q12HR #14 cap 10/25/24 10/27/24 Rx [Macrobid] Ondansetron Odt [Zofran Odt] 4 mg PO Q8HR PRN #10 tab 10/25/24 10/27/24 Rx Insulin Glargine,Hum.rec.anlog 6 units SQ DAILY@1100 10/27/24 10/27/24 History [Lantus Solostar Pen] Allergies Allergy/AdvReac Type Severity Reaction Status Date / Time Sulfa (Sulfonamide Allergy Rash/Hives Verified 10/27/24 13:24 Antibiotics) Physical Exam Vitals: Vital Signs Temp Pulse Resp BP Pulse Ox 10/28/24 13:22 80 22 105/53 95 10/28/24 13:04 85 20 94/46 94 L 10/28/24 11:33 80 18 102/58 94 L 10/28/24 10:23 82 20 126/66 98 10/28/24 09:37 97 10/28/24 09:29 86 18 109/55 96 10/28/24 07:38 97.5 F L 75 16 113/54 96 10/28/24 06:30 83 18 108/53 96 10/28/24 04:57 82 18 115/69 97 10/28/24 02:18 77 16 112/55 10/27/24 21:55 81 16 121/56 98 10/27/24 21:04 78 16 115/63 99 10/27/24 19:54 80 18 119/64 99 10/27/24 18:57 77 18 121/76 99 10/27/24 17:42 75 18 112/61 97 10/27/24 16:16 81 18 119/57 99 Intake and Output 10/28/24 10/28/24 10/28/24 06:59 14:59 22:59 Intake Total 8.190 4.991 Balance 8.190 4.991 Intake: Intake, IV Titration 8.190 4.991 Amount Insulin Regular 100 unit 8.190 4.991 In Sodium Chloride 0.9% 100 ml @ 0.1 UNITS/KG/HR 6.734 mls/hr IV .Q15H [facility] Rx#:[id number] Results - Lab Results Most recent lab results ABG pH 7.31 (7.35-7.45) L 10/27/24 13:34 ABG pCO2 31 mmHg (35-45) L 10/27/24 13:34 ABG pO2 107 mmHg (83-108) 10/27/24 13:34 ABG HCO3 16 mmol/L (21-25) L 10/27/24 13:34 ABG O2 Saturation 98.3 % (94-97) H 10/27/24 13:34 Calcium 7.9 mg/dL (8.4-10.2) L 10/28/24 13:18 Phosphorus 4.0 mg/dL (2.5-4.5) 10/28/24 13:18 Magnesium 1.7 mg/dL (1.6-2.3) 10/27/24 11:58 10/27/24 16:12 10/28/24 13:18 Assessment and Plan Plan: Assessment: 1. End-stage renal disease maintained on hemodialysis on Monday schedule. 2. Cardiomyopathy ejection fraction 15 to 20%. 3. Diabetes mellitus. 4. Coronary artery disease status post CABG. 6. Volume overload. 7. Hypervolemic hyponatremia. 8. ESBL emphysematous cystitis on antibiotics. Plan: Hemodialysis today. Thank you for the consultation. I will continue to follow the patient with you during her hospital stay.
[2024-10-28 16:50] LABS: Influenza A Not Detected (Not Detectd); Influenza B Not Detected (Not Detectd); RSV Not Detected (Not Detectd)
[2024-10-28 17:06] LABS: Glucose,Whole Blood 271 mg/dL (70-110)
[2024-10-28 17:14] LABS: Appearance,Urine Turbid (Clear); Bilirubin,Urine Negative (Negative); Blood,Urine Small (Negative); Color,Urine Yellow; Glucose,Urine (UA) 2+ (Negative); Ketones,Urine Negative (Negative); Leukocyte Esterase,Urine Large (Negative); Nitrite,Urine Negative (Negative); Protein,Urine 3+ (Negative); Squamous Epithelial Cell,Urine 9 /hpf (0-4); Urobilinogen,Urine <2.0 mg/dL (<2.0); WBC,Urine >182 /hpf (0-5)
[2024-10-28 17:17] LABS: Specific Gravity,Urine 1.015 (1.001-1.035)
[2024-10-28] MEDS: ONDANSETRON 4 MG/2 ML VIAL IVP PRN (17:21)
[2024-10-28] MEDS: ERTAPENEM 0.5 GM in SODIUM CHLORIDE 0.9% 50 ML IVPB SCH (17:27)
[2024-10-28 20:15] LABS: Glucose,Whole Blood 137 mg/dL (70-110)
[2024-10-29 02:00] LABS: Glucose,Whole Blood 207 mg/dL (70-110)
[2024-10-29 05:56] LABS: Glucose,Whole Blood 136 mg/dL (70-110)
--- NOTE | 2024-10-29 08:59 | P.CONS ---
History of Present Illness - Reason for Consult Consult date: 10/28/24 ESBL UTI Requesting physician: Lilly Cruz - Chief Complaint Nausea vomiting suprapubic pain and blood in the urine x few days - History of Present Illness Patient is a 59-year-old female with a past medical history significant for coronary artery disease diabetes mellitus fibromyalgia reflux hypertension hyperlipidemia IA end-stage renal disease on dialysis still makes some urine he was recently admitted to this facility with emphysematous cystitis, urine culture positive for ESBL E. coli patient was treated with course of IV Invanz and the patient did have overall improvement patient was doing okay for close to a month now presenting back to the hospital for evaluation of chest pain starting the morning of presentation to the hospital did have associated shortness of breath patient was recently evaluated in the ER on 10/25/2024 for evaluation of nausea vomiting and diarrhea patient has been diagnosed with UTI culture from still pending and was treated with Macrobid despite the patient being a dialysis patient patient is complaining of burning urine as well as some blood in the urine and suprapubic pain moderate and aching to sharp moderate intensity without radiation patient on presentation to the hospital was afebrile and no fever have been called subsequently patient was not tachycardic or hypotensive mildly hypoxic on 2 L nasal oxygen patient did have a UA that was positive with large leukocyte esterase more than 1-2 WBC white count 6.6 BNP mildly elevated liver isms are normal she was started on Invanz infectious disease was consulted for further management of antibiotic therapy patient did have abdominal pelvis CT as well with evidence of diffuse anasarca, no free air in the bladder lumen bladder was not particularly dilated Review of Systems Positive point and negatives has been mentioned in the HPI, complete review of systems was performed and all other systems are negative Past Medical History Past Medical History: Coronary Artery Disease (CAD), Chest Pain / Angina, Heart Failure, COPD, CVA/TIA, Diabetes Mellitus, Fibromyalgia, GERD/Reflux, Hyperlipidemia, Hypertension, Liver Disease, Myocardial Infarction (IA), Osteoarthritis (OA), Renal Disease, Thyroid Disorder Additional Past Medical History / Comment(s): NEUROPATHY BILATERAL FEET, DDD NECK AND LOWER BACK, hiatal hernia, states no need for BP med anymore(gets orthostatic hypotension-has "[employer] heart loop monitor"), hx hepatitis as a kid, hx fractrured left wrist, hx stroke 03/03/22-problems with balance since. Last Myocardial Infarction Date:: 02/2024 History of Any Multi-Drug Resistant Organisms: ESBL, MRSA Year Discovered:: 09/13/24-ESBL; 2018-MRSA MDRO Source:: ESBL-urine; MRSA-stomach Past Surgical History: Adenoidectomy, Back Surgery, Bladder Surgery, Hysterectomy, Orthopedic Surgery, Tonsillectomy, Tubal Ligation Additional Past Surgical History / Comment(s): Debridement right foot, PICC line placed and later removed, bladder suspension, exploratory laparotomy, right great toe amputation, pins right in foot, cataracts removed, left wrist ORIF, loop heart monitor placed 02/2022. Past Anesthesia/Blood Transfusion Reactions: No Reported Reaction, Motion Sickne ss Additional Past Anesthesia/Blood Transfusion Reaction / Comm: . Type of Cardiac Device: Loop Past Psychological History: Anxiety, Depression Smoking Status: Former smoker Past Alcohol Use History: Occasional Past Drug Use History: Marijuana, Methamphetamine - Past Family History Sister(s) Family Medical History: Coronary Artery Disease (CAD) Mother Family Medical History: Pulmonary Embolus Additional Family Medical History / Comment(s): . Father Additional Family Medical History / Comment(s): at 26yrs old--accident at work Medications and Allergies Home Medications Medication Instructions Recorded Confirmed Type Levothyroxine Sodium [Synthroid] 175 mcg PO DAILY 02/02/22 10/27/24 History traZODone HCL [Desyrel] 50 mg PO HS 02/09/24 10/27/24 History Clopidogrel [Plavix] 75 mg PO DAILY tab 03/18/24 10/27/24 Rx Ipratropium-Albuterol Nebulize 3 ml INHALATION RT-Q2H PRN each 03/18/24 10/27/24 Rx [Duoneb 0.5 mg-3 mg/3 ml Soln] Pantoprazole [Protonix] 40 mg PO AC-BRKFST tab 03/18/24 10/27/24 Rx Acetaminophen Tab [Tylenol] 650 mg PO Q6H PRN 06/30/24 10/27/24 History Aspirin EC [Ecotrin Low Dose] 81 mg PO DAILY 06/30/24 10/27/24 History Atorvastatin [Lipitor] 40 mg PO HS 06/30/24 10/27/24 History Fluticasone/Umeclidin/Vilanter 1 puff INHALATION RT-DAILY 06/30/24 10/27/24 History [Trelegy Ellipta 100-62.5-25] Ipratropium [place] [Atrovent Hfa] 2 puff INHALATION RT-Q6H PRN 06/30/24 10/27/24 History Polyvinyl Alcohol/Povidone [Clear 1 drop BOTH EYES QID PRN 06/30/24 10/27/24 History Eyes Natural Tears Drop] Metoprolol Succinate (ER) [Toprol 25 mg PO DAILY #30 tab 07/05/24 10/27/24 Rx XL] Torsemide [Demadex] 40 mg PO DAILY #30 tab 07/05/24 10/27/24 Rx Insulin Aspart [NovoLOG Flexpen] See Protocol SQ AC-TID 08/26/24 10/27/24 History Loperamide [Imodium] 2 mg PO QID PRN cap 09/20/24 10/27/24 Rx Midodrine [ProAmatine] 5 mg PO BID PRN 10/18/24 10/27/24 History Sacubitril/Valsartan [Entresto 24 1 tab PO BID 10/18/24 10/27/24 History mg-26 mg Tablet] Nitrofurantoin Monohyd/M-Cryst 100 mg PO Q12HR #14 cap 10/25/24 10/27/24 Rx [Macrobid] Ondansetron Odt [Zofran Odt] 4 mg PO Q8HR PRN #10 tab 10/25/24 10/27/24 Rx Insulin Glargine,Hum.rec.anlog 6 units SQ DAILY@1100 10/27/24 10/27/24 History [Lantus Solostar Pen] Allergies Allergy/AdvReac Type Severity Reaction Status Date / Time Sulfa (Sulfonamide Allergy Rash/Hives Verified 10/27/24 13:24 Antibiotics) Physical Exam Vitals: Vital Signs Temp Pulse Pulse Resp BP Pulse Ox 10/28/24 09:37 97 10/28/24 09:29 86 18 109/55 96 10/28/24 07:38 97.5 F L 75 16 113/54 96 10/28/24 06:30 83 18 108/53 96 10/28/24 04:57 82 18 115/69 97 10/28/24 02:18 77 16 112/55 10/27/24 21:55 81 16 121/56 98 10/27/24 21:04 78 16 115/63 99 10/27/24 19:54 80 18 119/64 99 10/27/24 18:57 77 18 121/76 99 10/27/24 17:42 75 18 112/61 97 10/27/24 16:16 81 18 119/57 99 10/27/24 14:56 75 18 120/78 99 10/27/24 13:45 70 18 123/96 100 10/27/24 13:19 72 18 128/62 100 10/27/24 12:00 83 84 20 133/70 994 H 10/27/24 11:18 97.4 F L 85 20 139/66 100 Intake and Output 10/27/24 10/28/24 10/28/24 22:59 06:59 14:59 Intake Total 42.362 8.190 0.707 Balance 42.362 8.190 0.707 Intake: Intake, IV Titration 42.362 8.190 0.707 Amount Insulin Regular 100 unit 42.362 8.190 0.707 In Sodium Chloride 0.9% 100 ml @ 0.1 UNITS/KG/HR 6.734 mls/hr IV .Q15H [facility] Rx#:[id number] GENERAL DESCRIPTION: Middle-aged female lying in bed, no distress. No tachypnea or accessory muscle of respiration use. HEENT: Shows Pallor , no scleral icterus. Oral mucous membrane is dry. NECK: Trachea central, no thyromegaly. LUNGS: Unlabored breathing. Clear to auscultation anteriorly. No wheeze or crackle. HEART: S1, S2, regular rate and rhythm. No loud murmur ABDOMEN: Soft, no tenderness , guarding or rigidity, no organomegaly EXTREMITIES: No edema of feet. SKIN: No rash, no masses palpable. NEUROLOGICAL: The patient is awake, alert, oriented x3, mood and affect normal. Results CBC & Chem 7: 10/27/24 16:12 10/28/24 13:18 Labs: Abnormal Lab Results - Last 24 Hours (Table) 10/27/24 10/27/24 10/27/24 Range/Units 11:58 11:58 12:16 RBC 3.40 L (3.80-5.40) m/uL Hgb 10.9 L D (11.4-16.0) gm/dL Hct (34.0-46.0) % MCV 106.3 H D (80.0-100.0) fL MCHC 30.3 L (31.0-37.0) g/dL Lymphocytes # 0.6 L (1.0-4.8) k/uL ABG pH (7.35-7.45) ABG pCO2 (35-45) mmHg ABG HCO3 (21-25) mmol/L ABG Total CO2 (19-24) mmol/L ABG O2 Saturation (94-97) % Hemoglobin (11.4-16.0) gm/dL Sodium 126 L (137-145) mmol/L Chloride 90 L (98-107) mmol/L Carbon Dioxide 9 L* (22-30) mmol/L BUN 56 H (7-17) mg/dL Creatinine 3.32 H (0.52-1.04) mg/dL Glucose 681 H* (74-99) mg/dL POC Glucose (mg/dL) 570 H* (70-110) mg/dL Calcium 8.2 L (8.4-10.2) mg/dL Phosphorus (2.5-4.5) mg/dL Alkaline Phosphatase 202 H (38-126) U/L Total Protein 5.9 L (6.3-8.2) g/dL Albumin 3.0 L (3.5-5.0) g/dL Lipase 22 L (23-300) U/L Urine Appearance (Clear) Urine Protein (Negative) Urine Glucose (UA) (Negative) Urine Ketones (Negative) Urine Blood (Negative) Ur Leukocyte Esterase (Negative) Urine WBC (0-5) /hpf Urine WBC Clumps (None) /hpf Ur Squamous Epith Cells (0-4) /hpf Urine Bacteria (None) /hpf Urine Mucus (None) /hpf 10/27/24 10/27/24 10/27/24 Range/Units 13:19 13:34 14:43 RBC (3.80-5.40) m/uL Hgb (11.4-16.0) gm/dL Hct (34.0-46.0) % MCV (80.0-100.0) fL MCHC (31.0-37.0) g/dL Lymphocytes # (1.0-4.8) k/uL ABG pH 7.31 L (7.35-7.45) ABG pCO2 31 L (35-45) mmHg ABG HCO3 16 L (21-25) mmol/L ABG Total CO2 17 L (19-24) mmol/L ABG O2 Saturation 98.3 H (94-97) % Hemoglobin 10.4 L (11.4-16.0) gm/dL Sodium (137-145) mmol/L Chloride (98-107) mmol/L Carbon Dioxide (22-30) mmol/L BUN (7-17) mg/dL Creatinine (0.52-1.04) mg/dL Glucose (74-99) mg/dL POC Glucose (mg/dL) 500 H 463 H (70-110) mg/dL Calcium (8.4-10.2) mg/dL Phosphorus (2.5-4.5) mg/dL Alkaline Phosphatase (38-126) U/L Total Protein (6.3-8.2) g/dL Albumin (3.5-5.0) g/dL Lipase (23-300) U/L Urine Appearance (Clear) Urine Protein (Negative) Urine Glucose (UA) (Negative) Urine Ketones (Negative) Urine Blood (Negative) Ur Leukocyte Esterase (Negative) Urine WBC (0-5) /hpf Urine WBC Clumps (None) /hpf Ur Squamous Epith Cells (0-4) /hpf Urine Bacteria (None) /hpf Urine Mucus (None) /hpf 10/27/24 10/27/24 10/27/24 Range/Units 16:12 16:12 16:12 RBC 3.30 L (3.80-5.40) m/uL Hgb 10.9 L (11.4-16.0) gm/dL Hct 33.8 L (34.0-46.0) % MCV 102.4 H (80.0-100.0) fL MCHC (31.0-37.0) g/dL Lymphocytes # 0.9 L (1.0-4.8) k/uL ABG pH (7.35-7.45) ABG pCO2 (35-45) mmHg ABG HCO3 (21-25) mmol/L ABG Total CO2 (19-24) mmol/L ABG O2 Saturation (94-97) % Hemoglobin (11.4-16.0) gm/dL Sodium 128 L (137-145) mmol/L Chloride 94 L (98-107) mmol/L Carbon Dioxide 20 L (22-30) mmol/L BUN 58 H (7-17) mg/dL Creatinine 3.10 H (0.52-1.04) mg/dL Glucose 324 H (74-99) mg/dL POC Glucose (mg/dL) (70-110) mg/dL Calcium (8.4-10.2) mg/dL Phosphorus 4.8 H (2.5-4.5) mg/dL Alkaline Phosphatase (38-126) U/L Total Protein (6.3-8.2) g/dL Albumin (3.5-5.0) g/dL Lipase (23-300) U/L Urine Appearance (Clear) Urine Protein (Negative) Urine Glucose (UA) (Negative) Urine Ketones (Negative) Urine Blood (Negative) Ur Leukocyte Esterase (Negative) Urine WBC (0-5) /hpf Urine WBC Clumps (None) /hpf Ur Squamous Epith Cells (0-4) /hpf Urine Bacteria (None) /hpf Urine Mucus (None) /hpf 10/27/24 10/27/24 10/27/24 Range/Units 16:16 17:22 18:25 RBC (3.80-5.40) m/uL Hgb (11.4-16.0) gm/dL Hct (34.0-46.0) % MCV (80.0-100.0) fL MCHC (31.0-37.0) g/dL Lymphocytes # (1.0-4.8) k/uL ABG pH (7.35-7.45) ABG pCO2 (35-45) mmHg ABG HCO3 (21-25) mmol/L ABG Total CO2 (19-24) mmol/L ABG O2 Saturation (94-97) % Hemoglobin (11.4-16.0) gm/dL Sodium (137-145) mmol/L Chloride (98-107) mmol/L Carbon Dioxide (22-30) mmol/L BUN (7-17) mg/dL Creatinine (0.52-1.04) mg/dL Glucose (74-99) mg/dL POC Glucose (mg/dL) 329 H 236 H 188 H (70-110) mg/dL Calcium (8.4-10.2) mg/dL Phosphorus (2.5-4.5) mg/dL Alkaline Phosphatase (38-126) U/L Total Protein (6.3-8.2) g/dL Albumin (3.5-5.0) g/dL Lipase (23-300) U/L Urine Appearance (Clear) Urine Protein (Negative) Urine Glucose (UA) (Negative) Urine Ketones (Negative) Urine Blood (Negative) Ur Leukocyte Esterase (Negative) Urine WBC (0-5) /hpf Urine WBC Clumps (None) /hpf Ur Squamous Epith Cells (0-4) /hpf Urine Bacteria (None) /hpf Urine Mucus (None) /hpf 10/27/24 10/27/24 10/27/24 Range/Units 18:41 19:29 21:00 RBC (3.80-5.40) m/uL Hgb (11.4-16.0) gm/dL Hct (34.0-46.0) % MCV (80.0-100.0) fL MCHC (31.0-37.0) g/dL Lymphocytes # (1.0-4.8) k/uL ABG pH (7.35-7.45) ABG pCO2 (35-45) mmHg ABG HCO3 (21-25) mmol/L ABG Total CO2 (19-24) mmol/L ABG O2 Saturation (94-97) % Hemoglobin (11.4-16.0) gm/dL Sodium (137-145) mmol/L Chloride (98-107) mmol/L Carbon Dioxide (22-30) mmol/L BUN (7-17) mg/dL Creatinine (0.52-1.04) mg/dL Glucose (74-99) mg/dL POC Glucose (mg/dL) 526 H* 55 L (70-110) mg/dL Calcium (8.4-10.2) mg/dL Phosphorus (2.5-4.5) mg/dL Alkaline Phosphatase (38-126) U/L Total Protein (6.3-8.2) g/dL Albumin (3.5-5.0) g/dL Lipase (23-300) U/L Urine Appearance Cloudy H (Clear) Urine Protein 2+ H (Negative) Urine Glucose (UA) 4+ H (Negative) Urine Ketones 1+ H (Negative) Urine Blood Trace H (Negative) Ur Leukocyte Esterase Large H (Negative) Urine WBC >182 H (0-5) /hpf Urine WBC Clumps Occasional H (None) /hpf Ur Squamous Epith Cells 12 H (0-4) /hpf Urine Bacteria Occasional H (None) /hpf Urine Mucus Rare H (None) /hpf 10/27/24 10/27/24 10/27/24 Range/Units 21:33 22:13 22:41 RBC (3.80-5.40) m/uL Hgb (11.4-16.0) gm/dL Hct (34.0-46.0) % MCV (80.0-100.0) fL MCHC (31.0-37.0) g/dL Lymphocytes # (1.0-4.8) k/uL ABG pH (7.35-7.45) ABG pCO2 (35-45) mmHg ABG HCO3 (21-25) mmol/L ABG Total CO2 (19-24) mmol/L ABG O2 Saturation (94-97) % Hemoglobin (11.4-16.0) gm/dL Sodium (137-145) mmol/L Chloride (98-107) mmol/L Carbon Dioxide (22-30) mmol/L BUN (7-17) mg/dL Creatinine (0.52-1.04) mg/dL Glucose (74-99) mg/dL POC Glucose (mg/dL) 56 L 111 H 154 H (70-110) mg/dL Calcium (8.4-10.2) mg/dL Phosphorus (2.5-4.5) mg/dL Alkaline Phosphatase (38-126) U/L Total Protein (6.3-8.2) g/dL Albumin (3.5-5.0) g/dL Lipase (23-300) U/L Urine Appearance (Clear) Urine Protein (Negative) Urine Glucose (UA) (Negative) Urine Ketones (Negative) Urine Blood (Negative) Ur Leukocyte Esterase (Negative) Urine WBC (0-5) /hpf Urine WBC Clumps (None) /hpf Ur Squamous Epith Cells (0-4) /hpf Urine Bacteria (None) /hpf Urine Mucus (None) /hpf 10/27/24 10/27/24 10/28/24 Range/Units 23:04 23:59 01:03 RBC (3.80-5.40) m/uL Hgb (11.4-16.0) gm/dL Hct (34.0-46.0) % MCV (80.0-100.0) fL MCHC (31.0-37.0) g/dL Lymphocytes # (1.0-4.8) k/uL ABG pH (7.35-7.45) ABG pCO2 (35-45) mmHg ABG HCO3 (21-25) mmol/L ABG Total CO2 (19-24) mmol/L ABG O2 Saturation (94-97) % Hemoglobin (11.4-16.0) gm/dL Sodium (137-145) mmol/L Chloride (98-107) mmol/L Carbon Dioxide (22-30) mmol/L BUN (7-17) mg/dL Creatinine (0.52-1.04) mg/dL Glucose (74-99) mg/dL POC Glucose (mg/dL) 167 H 185 H 223 H (70-110) mg/dL Calcium (8.4-10.2) mg/dL Phosphorus (2.5-4.5) mg/dL Alkaline Phosphatase (38-126) U/L Total Protein (6.3-8.2) g/dL Albumin (3.5-5.0) g/dL Lipase (23-300) U/L Urine Appearance (Clear) Urine Protein (Negative) Urine Glucose (UA) (Negative) Urine Ketones (Negative) Urine Blood (Negative) Ur Leukocyte Esterase (Negative) Urine WBC (0-5) /hpf Urine WBC Clumps (None) /hpf Ur Squamous Epith Cells (0-4) /hpf Urine Bacteria (None) /hpf Urine Mucus (None) /hpf 10/28/24 10/28/24 10/28/24 Range/Units 02:02 02:56 04:00 RBC (3.80-5.40) m/uL Hgb (11.4-16.0) gm/dL Hct (34.0-46.0) % MCV (80.0-100.0) fL MCHC (31.0-37.0) g/dL Lymphocytes # (1.0-4.8) k/uL ABG pH (7.35-7.45) ABG pCO2 (35-45) mmHg ABG HCO3 (21-25) mmol/L ABG Total CO2 (19-24) mmol/L ABG O2 Saturation (94-97) % Hemoglobin (11.4-16.0) gm/dL Sodium (137-145) mmol/L Chloride (98-107) mmol/L Carbon Dioxide (22-30) mmol/L BUN (7-17) mg/dL Creatinine (0.52-1.04) mg/dL Glucose (74-99) mg/dL POC Glucose (mg/dL) 177 H 146 H 124 H (70-110) mg/dL Calcium (8.4-10.2) mg/dL Phosphorus (2.5-4.5) mg/dL Alkaline Phosphatase (38-126) U/L Total Protein (6.3-8.2) g/dL Albumin (3.5-5.0) g/dL Lipase (23-300) U/L Urine Appearance (Clear) Urine Protein (Negative) Urine Glucose (UA) (Negative) Urine Ketones (Negative) Urine Blood (Negative) Ur Leukocyte Esterase (Negative) Urine WBC (0-5) /hpf Urine WBC Clumps (None) /hpf Ur Squamous Epith Cells (0-4) /hpf Urine Bacteria (None) /hpf Urine Mucus (None) /hpf 10/28/24 10/28/24 10/28/24 Range/Units 05:00 05:37 06:30 RBC (3.80-5.40) m/uL Hgb (11.4-16.0) gm/dL Hct (34.0-46.0) % MCV (80.0-100.0) fL MCHC (31.0-37.0) g/dL Lymphocytes # (1.0-4.8) k/uL ABG pH (7.35-7.45) ABG pCO2 (35-45) mmHg ABG HCO3 (21-25) mmol/L ABG Total CO2 (19-24) mmol/L ABG O2 Saturation (94-97) % Hemoglobin (11.4-16.0) gm/dL Sodium 127 L (137-145) mmol/L Chloride 96 L (98-107) mmol/L Carbon Dioxide (22-30) mmol/L BUN 57 H (7-17) mg/dL Creatinine 2.71 H (0.52-1.04) mg/dL Glucose 120 H (74-99) mg/dL POC Glucose (mg/dL) 122 H 226 H (70-110) mg/dL Calcium 7.6 L (8.4-10.2) mg/dL Phosphorus (2.5-4.5) mg/dL Alkaline Phosphatase (38-126) U/L Total Protein (6.3-8.2) g/dL Albumin (3.5-5.0) g/dL Lipase (23-300) U/L Urine Appearance (Clear) Urine Protein (Negative) Urine Glucose (UA) (Negative) Urine Ketones (Negative) Urine Blood (Negative) Ur Leukocyte Esterase (Negative) Urine WBC (0-5) /hpf Urine WBC Clumps (None) /hpf Ur Squamous Epith Cells (0-4) /hpf Urine Bacteria (None) /hpf Urine Mucus (None) /hpf 10/28/24 10/28/24 10/28/24 Range/Units 07:32 08:40 09:28 RBC (3.80-5.40) m/uL Hgb (11.4-16.0) gm/dL Hct (34.0-46.0) % MCV (80.0-100.0) fL MCHC (31.0-37.0) g/dL Lymphocytes # (1.0-4.8) k/uL ABG pH (7.35-7.45) ABG pCO2 (35-45) mmHg ABG HCO3 (21-25) mmol/L ABG Total CO2 (19-24) mmol/L ABG O2 Saturation (94-97) % Hemoglobin (11.4-16.0) gm/dL Sodium (137-145) mmol/L Chloride (98-107) mmol/L Carbon Dioxide (22-30) mmol/L BUN (7-17) mg/dL Creatinine (0.52-1.04) mg/dL Glucose (74-99) mg/dL POC Glucose (mg/dL) 257 H 278 H 241 H (70-110) mg/dL Calcium (8.4-10.2) mg/dL Phosphorus (2.5-4.5) mg/dL Alkaline Phosphatase (38-126) U/L Total Protein (6.3-8.2) g/dL Albumin (3.5-5.0) g/dL Lipase (23-300) U/L Urine Appearance (Clear) Urine Protein (Negative) Urine Glucose (UA) (Negative) Urine Ketones (Negative) Urine Blood (Negative) Ur Leukocyte Esterase (Negative) Urine WBC (0-5) /hpf Urine WBC Clumps (None) /hpf Ur Squamous Epith Cells (0-4) /hpf Urine Bacteria (None) /hpf Urine Mucus (None) /hpf Assessment and Plan (1) History of infection due to ESBL Escherichia coli Current Visit: Yes Status: Acute Code(s): Z86.19 - PERSONAL HISTORY OF OTHER INFECTIOUS AND PARASITIC DISEASES SNOMED Code(s): 045646680 (2) UTI (urinary tract infection) Current Visit: No Status: Acute Code(s): N39.0 - URINARY TRACT INFECTION, SITE NOT SPECIFIED SNOMED Code(s): 58624777 Plan: 1patient with symptoms of nausea and vomiting suprapubic discomfort burning urine along with some blood in the urine concerning for cystitis in this patient who recently did have recent ESBL E. coli emphysematous cystitis CT abdominal pelvis this admission did not show any urine in the bladder however was partially distended and recommending rectal contrast which should be completed to make sure no evidence of any colovesical fistula responsible for his recurrent UTIs 2-for now the patient be treated with Invanz while waiting for the culture to finalize keeping in mind her history of ESBL infection about a month ago Question concern answered We will follow on clinical condition and cultures to further adjust medication if needed Thank you for this consultation we will follow the patient along with you Dictation was produced using [employer] dictation software. please excuse any grammatical, word or spelling errors. Time with Patient: Greater than 30
[2024-10-29 10:07] LABS: HGB 11.1 gm/dL (11.4-16.0); MCH 32.6 pg (25.0-35.0); MCHC 32.6 g/dL (31.0-37.0); MCV 100.2 fL (80.0-100.0); Macrocytosis Slight; Mean Platelet Volume 8.7; Platelet Count 201 k/uL (150-450); RBC 3.39 m/uL (3.80-5.40); RDW 15.2 % (11.5-15.5); WBC 4.9 k/uL (3.8-10.6)
[2024-10-29 10:26] LABS: African American GFR (CKD) 33 (>60 ml/min/1.73 sqM); Anion Gap 7 mmol/L; Blood Urea Nitrogen 28 mg/dL (7-17); Calcium 7.6 mg/dL (8.4-10.2); Carbon Dioxide 26 mmol/L (22-30); Chloride 95 mmol/L (98-107); Glucose 267 mg/dL (74-99); Non-African American GFR(CKD) 29 (>60 ml/min/1.73 sqM); Sodium 128 mmol/L (137-145)
--- NOTE | 2024-10-29 10:41 | CT ---
EXAMINATION TYPE: CT abdomen pelvis wo con DATE OF EXAM: 10/29/2024 HISTORY: evaluate for fistula CT DLP: 443.3 mGycm. Automated Exposure Control for Dose Reduction was Utilized. TECHNIQUE: CT scan of the abdomen and pelvis is performed without oral or IV contrast. Rectal contra st is given. COMPARISON: CT abdomen and pelvis 2 days earlier FINDINGS: Within the limitations of a non-contrast study, the following observations are made. LOWER CHEST: Small right greater than left pleural effusions with associated atelectasis is redemonst rated. Coronary artery calcification is again seen. ABDOMEN LIVER: Unremarkable GALLBLADDER AND BILE DUCTS: Unremarkable. PANCREAS: Unremarkable. SPLEEN: Unremarkable. ADRENAL GLANDS: Unremarkable. KIDNEYS AND URETERS: No evidence of hydronephrosis or renal calculus. PELVIS BLADDER: No evidence for gas in the bladder lumen. No evidence for wall thickening or mass given limi tations of exam. REPRODUCTIVE: Uterus is suspected surgically absent. ABDOMEN & PELVIS STOMACH AND BOWEL: No evidence of bowel obstruction. Oral contrast now present in the colon from the hepatic flexure to the rectum. Mild/moderate wall thickening in the transverse colon is noted. PERITONEUM/RETROPERITONEUM: No evidence of pneumoperitoneum or free fluid. VASCULATURE: No evidence of aortic aneurysm. Mild peripheral calcified plaque. MUSCULOSKELETAL: Slight scoliotic curvature. Moderate to advanced disc space narrowing at T12-L1, L4- L5, and L5-S1 levels is redemonstrated. LYMPH NODES: No gross evidence for lymphadenopathy. SOFT TISSUE/ABDOMINAL WALL: More prominent moderate to severe soft tissue subcutaneous edema. IMPRESSION: Noncontrast exam which limits evaluation for enterovesical fistula. There is more prominent diffuse a nasarca and edema throughout the soft tissues which also limits evaluation. No free air or contrast i n the bladder lumen to diagnose fistula. Cannot exclude acute uncomplicated colitis involving the tra nsverse colon, correlate clinically. [facility], , 10/29/2024 10:39 AM
[2024-10-29 11:43] LABS: Glucose,Whole Blood 378 mg/dL (70-110)
[2024-10-29 11:54] VITALS: BMI 20.9
--- NOTE | 2024-10-29 12:52 | P.PN ---
Subjective HISTORY OF PRESENT ILLNESS: This is a 59-year-old female with a past medical history significant for coronary artery disease with previous CABG, ischemic cardiomyopathy, hypertension, diabetes, and nicotine dependence. Patient follows in the office with Dr. Saunders. We have been asked to see the patient in consultation for chest pain. Patient examined at the bedside in the emergency room by Dr. Sands. Patient presented to the hospital with a chief complaint of chest pain. Patient reports that the pain radiated into both of her arms. Patient also reports that she has been having nausea vomiting, and diarrhea. She did miss her dialysis sessions on Monday and Monday due to diarrhea. At the time of examination she denies any chest pain or shortness of breath. DIAGNOSTICS: - EKG reveals sinus mechanism with IVCD. Baseline artifact. - Chest xray negative for acute process. - Laboratory data: WBC 6.6. Hemoglobin 10.9. Platelet count 169. Sodium 127. BUN 57. Creatinine 2.71. Troponin negative x 3. proBNP 41,300. - Current home cardiac medications include aspirin 81 mg daily, atorvastatin 40 mg at night, Plavix 75 mg daily, metoprolol succinate 25 mg daily, Entresto 24- 26 mg twice a day, Demadex 40 mg daily, midodrine 5 mg twice a day as needed. - Most recent echocardiogram obtained in August 2024 revealed ejection fraction of 15 to 20%, left pleural effusion. Severe TR, mild to moderate AR, severe MR - Cardiac catheterization history: February 2024 revealed calcified coronary arteries. Severe triple-vessel disease. Right dominant system. Mildly elevated LVEDP. 10/29/2024 Patient examined this morning at the bedside. Patient denies chest pain or pressure. Denies SOB. Limited echo pending. PHYSICAL EXAM: VITAL SIGNS: Reviewed. GENERAL: Well-developed in no acute distress. HEENT: Head is normocephalic. Pupils are equal, round. Sclerae anicteric. Mucous membranes of the mouth are moist. Neck supple. No JVD or thyromegaly LUNGS: Respirations even and unlabored. Lungs essentially clear to auscultation bilaterally. HEART: Regular rate and rhythm. S1 and S2 heard. ABDOMEN: Soft. Nondistended. Nontender. EXTREMITIES: Normal range of motion. No clubbing or cyanosis. Peripheral pulses intact. No lower extremity edema NEUROLOGIC: Awake and alert. Oriented x 3. ASSESSMENT: DKA Chest pain, troponin negative x 3 Coronary artery disease with previous CABG Ischemic cardiomyopathy, 15 to 20% Chronic heart failure with reduced EF, currently not fluid overloaded End stage renal disease on hemodialysis Valvular heart disease Hypertension Diabetes Nicotine dependence PLAN: An acute coronary event has been ruled out Limited echo pending Continue current cardiac medications Patient is not a candidate for any invasive cardiac procedures at this time Recommend eventual evaluation for ICD implantation Further recommendations pending patient course Nurse practitioner note has been reviewed by physician. Signing provider agrees with the documented findings, assessment, and plan of care documented by SOAP INSPECTOR as a scribe. Objective - Vital Signs Vital signs: Vital Signs Temp 97.9 F 10/29/24 08:50 Pulse 79 10/29/24 08:50 Resp 17 10/29/24 08:50 BP 115/60 10/29/24 08:50 Pulse Ox 95 10/29/24 08:50 FiO2 Intake & Output 10/28/24 10/29/24 10/29/24 18:59 06:59 18:59 Intake Total 4.991 500 Output Total 6550 Balance 4.991 -6050 Weight 62.7 kg 62.7 kg Intake: Intake, IV Titration 4.991 Amount Insulin Regular 100 unit 4.991 In Sodium Chloride 0.9% 100 ml @ 0.1 UNITS/KG/HR 6.734 mls/hr IV .Q15H [facility] Rx#:[id number] Hemodialysis 500 Output: Urine 50 Hemodialysis 3500 Hemodialysis Net Amount 3000 Other: Voiding Method Bedside Commode Bedside Commode # Voids 1 1 - Labs CBC & Chem 7: 10/29/24 09:12 10/29/24 09:12 Labs: Abnormal Lab Results - Last 24 Hours (Table) 10/28/24 10/28/24 10/28/24 Range/Units 13:00 13:18 17:00 RBC (3.80-5.40) m/uL Hgb (11.4-16.0) gm/dL MCV (80.0-100.0) fL Sodium 126 L (137-145) mmol/L Potassium 5.2 H (3.5-5.1) mmol/L Chloride 97 L (98-107) mmol/L Carbon Dioxide 21 L (22-30) mmol/L BUN 57 H (7-17) mg/dL Creatinine 2.70 H (0.52-1.04) mg/dL Glucose 214 H (74-99) mg/dL POC Glucose (mg/dL) 167 H (70-110) mg/dL Calcium 7.9 L (8.4-10.2) mg/dL Alkaline Phosphatase 183 H (38-126) U/L Total Protein 5.6 L (6.3-8.2) g/dL Albumin 2.5 L (3.5-5.0) g/dL Urine Appearance Turbid H (Clear) Urine Protein 3+ H (Negative) Urine Glucose (UA) 2+ H (Negative) Urine Blood Small H (Negative) Ur Leukocyte Esterase Large H (Negative) Urine WBC >182 H (0-5) /hpf Ur Squamous Epith Cells 9 H (0-4) /hpf 10/28/24 10/28/24 10/29/24 Range/Units 17:05 20:14 01:59 RBC (3.80-5.40) m/uL Hgb (11.4-16.0) gm/dL MCV (80.0-100.0) fL Sodium (137-145) mmol/L Potassium (3.5-5.1) mmol/L Chloride (98-107) mmol/L Carbon Dioxide (22-30) mmol/L BUN (7-17) mg/dL Creatinine (0.52-1.04) mg/dL Glucose (74-99) mg/dL POC Glucose (mg/dL) 271 H 137 H 207 H (70-110) mg/dL Calcium (8.4-10.2) mg/dL Alkaline Phosphatase (38-126) U/L Total Protein (6.3-8.2) g/dL Albumin (3.5-5.0) g/dL Urine Appearance (Clear) Urine Protein (Negative) Urine Glucose (UA) (Negative) Urine Blood (Negative) Ur Leukocyte Esterase (Negative) Urine WBC (0-5) /hpf Ur Squamous Epith Cells (0-4) /hpf 10/29/24 10/29/24 10/29/24 Range/Units 05:55 09:12 09:12 RBC 3.39 L (3.80-5.40) m/uL Hgb 11.1 L (11.4-16.0) gm/dL MCV 100.2 H (80.0-100.0) fL Sodium 128 L (137-145) mmol/L Potassium (3.5-5.1) mmol/L Chloride 95 L (98-107) mmol/L Carbon Dioxide (22-30) mmol/L BUN 28 H (7-17) mg/dL Creatinine 1.87 H (0.52-1.04) mg/dL Glucose 267 H (74-99) mg/dL POC Glucose (mg/dL) 136 H (70-110) mg/dL Calcium 7.6 L (8.4-10.2) mg/dL Alkaline Phosphatase (38-126) U/L Total Protein (6.3-8.2) g/dL Albumin (3.5-5.0) g/dL Urine Appearance (Clear) Urine Protein (Negative) Urine Glucose (UA) (Negative) Urine Blood (Negative) Ur Leukocyte Esterase (Negative) Urine WBC (0-5) /hpf Ur Squamous Epith Cells (0-4) /hpf 10/29/24 Range/Units 11:41 RBC (3.80-5.40) m/uL Hgb (11.4-16.0) gm/dL MCV (80.0-100.0) fL Sodium (137-145) mmol/L Potassium (3.5-5.1) mmol/L Chloride (98-107) mmol/L Carbon Dioxide (22-30) mmol/L BUN (7-17) mg/dL Creatinine (0.52-1.04) mg/dL Glucose (74-99) mg/dL POC Glucose (mg/dL) 378 H (70-110) mg/dL Calcium (8.4-10.2) mg/dL Alkaline Phosphatase (38-126) U/L Total Protein (6.3-8.2) g/dL Albumin (3.5-5.0) g/dL Urine Appearance (Clear) Urine Protein (Negative) Urine Glucose (UA) (Negative) Urine Blood (Negative) Ur Leukocyte Esterase (Negative) Urine WBC (0-5) /hpf Ur Squamous Epith Cells (0-4) /hpf
--- NOTE | 2024-10-29 15:20 | P.PN ---
Subjective Progress Note Date: 10/29/24 Principal diagnosis: Reason for follow-up is a urinary tract infection Patient is a 59-year-old female with a past medical history significant for coronary artery disease diabetes mellitus fibromyalgia reflux hypertension hyperlipidemia [place] end-stage renal disease on dialysis still makes some urine he was recently admitted to this facility with emphysematous cystitis, urine culture positive for ESBL E. coli now presented back to the hospital chest pain also having some nausea vomiting suprapubic pain and hematuria. On today's evaluation that is 10/29/2024, Patient is afebrile this morning patient denies having any chest pain shortness of breath or cough, the patient is currently on room air, patient still complaining of lower abdominal discomfort burning of urine blood in the urine as well as nausea but no vomiting. Patient white count is 4.9 creat is 1.87 urine culture from 10/25/2024 currently pending Objective - Vital Signs Vital signs: Vital Signs Temp 97.9 F 10/29/24 08:50 Pulse 79 10/29/24 08:50 Resp 17 10/29/24 08:50 BP 115/60 10/29/24 08:50 Pulse Ox 95 10/29/24 08:50 FiO2 Intake & Output 10/28/24 10/29/24 10/29/24 18:59 06:59 18:59 Intake Total 4.991 500 Output Total 6550 Balance 4.991 -6050 Weight 62.7 kg 62.7 kg Intake: Intake, IV Titration 4.991 Amount Insulin Regular 100 unit 4.991 In Sodium Chloride 0.9% 100 ml @ 0.1 UNITS/KG/HR 6.734 mls/hr IV .Q15H [facility] Rx#:[id number] Hemodialysis 500 Output: Urine 50 Hemodialysis 3500 Hemodialysis Net Amount 3000 Other: Voiding Method Bedside Commode Bedside Commode # Voids 1 1 - Exam GENERAL DESCRIPTION: Middle-age female lying in bed in no distress RESPIRATORY SYSTEM: Unlabored breathing , decreased breath sounds at bases HEART: S1 S2 regular rate and rhythm , ABDOMEN: Soft , no tenderness EXTREMITIES: No edema feet - Labs CBC & Chem 7: 10/29/24 09:12 10/29/24 09:12 Labs: Abnormal Lab Results - Last 24 Hours (Table) 10/28/24 10/28/24 10/28/24 Range/Units 13:00 13:18 17:00 RBC (3.80-5.40) m/uL Hgb (11.4-16.0) gm/dL MCV (80.0-100.0) fL Sodium 126 L (137-145) mmol/L Potassium 5.2 H (3.5-5.1) mmol/L Chloride 97 L (98-107) mmol/L Carbon Dioxide 21 L (22-30) mmol/L BUN 57 H (7-17) mg/dL Creatinine 2.70 H (0.52-1.04) mg/dL Glucose 214 H (74-99) mg/dL POC Glucose (mg/dL) 167 H (70-110) mg/dL Calcium 7.9 L (8.4-10.2) mg/dL Alkaline Phosphatase 183 H (38-126) U/L Total Protein 5.6 L (6.3-8.2) g/dL Albumin 2.5 L (3.5-5.0) g/dL Urine Appearance Turbid H (Clear) Urine Protein 3+ H (Negative) Urine Glucose (UA) 2+ H (Negative) Urine Blood Small H (Negative) Ur Leukocyte Esterase Large H (Negative) Urine WBC >182 H (0-5) /hpf Ur Squamous Epith Cells 9 H (0-4) /hpf 10/28/24 10/28/24 10/29/24 Range/Units 17:05 20:14 01:59 RBC (3.80-5.40) m/uL Hgb (11.4-16.0) gm/dL MCV (80.0-100.0) fL Sodium (137-145) mmol/L Potassium (3.5-5.1) mmol/L Chloride (98-107) mmol/L Carbon Dioxide (22-30) mmol/L BUN (7-17) mg/dL Creatinine (0.52-1.04) mg/dL Glucose (74-99) mg/dL POC Glucose (mg/dL) 271 H 137 H 207 H (70-110) mg/dL Calcium (8.4-10.2) mg/dL Alkaline Phosphatase (38-126) U/L Total Protein (6.3-8.2) g/dL Albumin (3.5-5.0) g/dL Urine Appearance (Clear) Urine Protein (Negative) Urine Glucose (UA) (Negative) Urine Blood (Negative) Ur Leukocyte Esterase (Negative) Urine WBC (0-5) /hpf Ur Squamous Epith Cells (0-4) /hpf 10/29/24 10/29/24 10/29/24 Range/Units 05:55 09:12 09:12 RBC 3.39 L (3.80-5.40) m/uL Hgb 11.1 L (11.4-16.0) gm/dL MCV 100.2 H (80.0-100.0) fL Sodium 128 L (137-145) mmol/L Potassium (3.5-5.1) mmol/L Chloride 95 L (98-107) mmol/L Carbon Dioxide (22-30) mmol/L BUN 28 H (7-17) mg/dL Creatinine 1.87 H (0.52-1.04) mg/dL Glucose 267 H (74-99) mg/dL POC Glucose (mg/dL) 136 H (70-110) mg/dL Calcium 7.6 L (8.4-10.2) mg/dL Alkaline Phosphatase (38-126) U/L Total Protein (6.3-8.2) g/dL Albumin (3.5-5.0) g/dL Urine Appearance (Clear) Urine Protein (Negative) Urine Glucose (UA) (Negative) Urine Blood (Negative) Ur Leukocyte Esterase (Negative) Urine WBC (0-5) /hpf Ur Squamous Epith Cells (0-4) /hpf 10/29/24 Range/Units 11:41 RBC (3.80-5.40) m/uL Hgb (11.4-16.0) gm/dL MCV (80.0-100.0) fL Sodium (137-145) mmol/L Potassium (3.5-5.1) mmol/L Chloride (98-107) mmol/L Carbon Dioxide (22-30) mmol/L BUN (7-17) mg/dL Creatinine (0.52-1.04) mg/dL Glucose (74-99) mg/dL POC Glucose (mg/dL) 378 H (70-110) mg/dL Calcium (8.4-10.2) mg/dL Alkaline Phosphatase (38-126) U/L Total Protein (6.3-8.2) g/dL Albumin (3.5-5.0) g/dL Urine Appearance (Clear) Urine Protein (Negative) Urine Glucose (UA) (Negative) Urine Blood (Negative) Ur Leukocyte Esterase (Negative) Urine WBC (0-5) /hpf Ur Squamous Epith Cells (0-4) /hpf Assessment and Plan (1) History of infection due to ESBL Escherichia coli Current Visit: Yes Status: Acute Code(s): Z86.19 - PERSONAL HISTORY OF OTHER INFECTIOUS AND PARASITIC DISEASES SNOMED Code(s): 557595235 (2) UTI (urinary tract infection) Current Visit: No Status: Acute Code(s): N39.0 - URINARY TRACT INFECTION, SITE NOT SPECIFIED SNOMED Code(s): 96355338 Plan: 1patient with symptoms of nausea and vomiting suprapubic discomfort burning urine along with some blood in the urine concerning for cystitis in this patient who recently did have recent ESBL E. coli emphysematous cystitis CT abdominal pelvis this admission did not show any urine in the bladder however was partially distended and recommending rectal contrast which should be completed to make sure no evidence of any colovesical fistula responsible for his recurrent UTIs 2-patient is currently treated with Invanz while waiting for the culture to f inalize keeping antibiotic clinical course closely Dictation was produced using [employer] dictation software. please excuse any grammatical, word or spelling errors. Time with Patient: Less than 30
--- NOTE | 2024-10-29 15:56 | CA ---
Transthoracic Echo Report Name: Mila Camilo Age: 59 Gender: F : 1965 Exam Date: 10/29/2024 10:50 Exam Location: [facility] Ht (in): 68 Wt (lb): 147 Ordering Physician: Beatriz Marcum Attending/Referring Phys: [id number], Jossue Stitcher Hand Suki Rodriguez RDCS Procedure CPT: Indications: LV function, chest pain Cardiac Hx: limited for LV and valves Technical Quality: Good Contrast 1: Total Dose (mL): Contrast 2: Total Dose (mL): MEASUREMENTS (Male / Female) Normal Values 2D ECHO LV Diastolic Diameter PLAX 4.8 cm 4.2 - 5.9 / 3.9 - 5.3 cm LV Systolic Diameter PLAX 3.7 cm IVS Diastolic Thickness 0.8 cm 0.6 - 1.0 / 0.6 - 0.9 cm LVPW Diastolic Thickness 0.8 cm 0.6 - 1.0 / 0.6 - 0.9 cm LV Relative Wall Thickness 0.3 RV Internal Dim ED PLAX 3.0 cm LV Diastolic Volume MOD BP 151.7 cm??? 67 - 155 / 56 - 104 cm??? LV Systolic Volume MOD BP 82.9 cm??? 22 - 58 / 19 - 49 cm??? LV Ejection Fraction MOD BP 45.4 % >= 55 % LV Cardiac Index MOD BP 2885.1 cm???/min???m??? LV Diastolic Volume MOD 4C 149.4 cm??? LV Systolic Volume MOD 4C 91.5 cm??? LV Ejection Fraction MOD 4C 38.8 % LV Cardiac Index MOD 4C 2427.0 cm???/min???m??? LV Diastolic Length 4C 9.6 cm LV Systolic Length 4C 7.9 cm LV Diastolic Volume MOD 2C 148.0 cm??? LV Systolic Volume MOD 2C 75.5 cm??? LV Ejection Fraction MOD 2C 49.0 % LV Cardiac Index MOD 2C 3038.2 cm???/min???m??? LV Diastolic Length 2C 9.2 cm LV Systolic Length 2C 7.9 cm DOPPLER TR Peak Velocity 274.2 cm/s TR Peak Gradient 30.1 mmHg FINDINGS Left Ventricle Left ventricular ejection fraction is estimated at 25-30 %. Severely increased left ventricular diastolic volume. Severely increased left ventricular systolic volume. Moderately decreased left ventricular ejection fraction. Inferoseptal dyskinesis Right Ventricle Normal right ventricular size and function. Mild pulmonary hypertension. Right Atrium Normal right atrial size. Left Atrium Normal left atrial size. Mitral Valve Structurally normal mitral valve. No mitral stenosis. Mild mitral regurgitation. Aortic Valve Trileaflet aortic valve. No aortic stenosis. Trace aortic regurgitation. Tricuspid Valve Structurally normal tricuspid valve. No tricuspid stenosis. Mild tricuspid regurgitation. Pulmonic Valve Pericardium Left pleural effusion. Aorta CONCLUSIONS Left ventricular ejection fraction 25-30% with global hypokinesis and more inferior septal dyskinesis Mild mitral regurgitation Trace aortic regurgitation Mild tricuspid regurgitation RVSP 35 Previewed by: Dr. Chris Berman DO (Electronically Signed) Final Date: 29 October 2024 15:55
[2024-10-29] MEDS ORDERED: DEXTROSE 50% SYRINGE 50 ML IVP PRN (16:38)
[2024-10-29 16:42] LABS: Glucose,Whole Blood 305 mg/dL (70-110)
--- NOTE | 2024-10-29 16:43 | P.PN ---
Subjective Progress Note Date: 10/29/24 Hospital Course: 1-year-old female with PMH of CAD with ischemic cardiomyopathy with EF of 15 to 20%, COPD, ESRD on dialysis MWF via R chest catheter, diabetes mellitus, fibromyalgia, GERD, hyperlipidemia, hypertension, and osteoarthritis presented to the emergency department for chest pain. Started on 9:30AM, woke her up from sleep. Pain is intermittent, pressure like in nature, left sided and radiates to the right arm and neck. Pain is associated with shortness of breath. No changes with movement or deep inspiration. Patient reports missing her Wed and Fri dialysis session due to diarrhea (ongoing for the past 2 months). She reports poor appetite and despite not eating much her blood glucose has been running high. She reports intermittent nausea and vomiting. Previously admitted from 09/13-09/20 for treatment of emphysematous cystitis with micorperforations, Urology recommended evaluation for enterovesical fistula at that time but patient refused. She was discharged to SNF on Ertapenem for 10 days. In the ED she underwent extensive evaluation: BP 139/66, HR 85, RR 20, T 97.4F, 100% on 2L NC. CBC, Coag panel, CMP significant for RBC 3.4, Hg 10.9, MCV 106.3, Na 126, Cl 90, bicarb 9, BUN 56, Cr 3.32, glu 681, Ca 8.2, alk phos 202, alb 3. Lipase 22. Trop 0.03. Acetone positive. ABG pH 7.31, pCO2 31. EKG sinus rhythm with interventricular conduction delay. CXR no acute process. Patient is admitted for further workup and management. Started on insulin drip and D5 1/2 NS with KCl IV for DKA. DKA resolved and she was transitioned to ISS. Troponins trended 0.03, 0.025, 0.024 and ACS was ruled out. Cardiology consulted, recommended Echo. Patient with complaints of dysuria, started on Ertapenem for h/o ESBL and ID consulted. CT AP with PO contrast ordered given history of emphysematous cystitis with microperforations concerning for enterovesical fistula which showed diffucse anasarca and edema, no free air in the bladder. TTE on 10/29 showed EF 25 to 30% with severely increased left ventricular diastolic volume, left ventricular systolic volume, inferoseptal dyskinesis, mild pulmonary hypertension RVSP 35 CT abdomen with rectal contrast: More prominent diffuse anasarca and edema, no free air or contrast in the bladder lumen to diagnose fistula, cannot exclude acute uncomplicated colitis. Pertinent Imaging: TTE and CT abdomen as mentioned above Subjective: Continues to complain of diarrhea, shortness of breath Pertinent positives and negatives as discussed above, a complete review of systems was performed and all other systems are negative. Vitals Signs Reviewed. General: [nontoxic], [no distress], [appears at stated age] Derm: [warm], [dry] Head: [atraumatic], [normocephalic], [symmetric] Eyes: [EOMI], [no lid lag], [anicteric sclera] Mouth: [no lip lesion], [mucus membranes moist] Cardiovascular: [S1S2 reg], [no murmur] Lungs: [CTA bilateral], [no rhonchi, no rales] , [no accessory muscle use] Abdominal: [soft], [ nontender to palpation], [no guarding], [no appreciable organomegaly] Ext: [no gross muscle atrophy], [no edema], [no contractures] Neuro: [ CN II-XI grossly intact], [no focal neuro deficits] Psych: [Alert], [oriented], [appropriate affect] Data Reviewed Today: Pertinent Labs: CBC with no leukocytosis, stable hemoglobin 11.1, platelet count normal sodium 128 2126, potassium normal, glucose fluctuates Imaging: Discussed above Assessment and Plan: [Active:] Chest pain History of CAD with stenting, history of CABG, ACS ruled out CHF with EF 25 to 30%, not in acute exacerbation -Cardiology following medicated for invasive procedure at this time, needs to be evaluated for ICD implantation ESRD on HD, -Continue antibiotic per nephrology, discussed at bedside hx of ESBL E. coli emphysematous cystitis UTI -Continue Invanz, ID following, follow-up final blood cultures COPD not in exacerbation: Continue DuoNebs, Symbicort, Spiriva GERD: Continue Protonix Hypothyroidism: Continue Synthroid 176 Hyperlipidemia: Continue Lipitor Hypertension: Metoprolol, torsemide, Entresto Type II DM with hyperglycemia Basal bolus with Levemir 9 units and mealtime 3 u nits, continue SSI [Resolved:] DKA \ DVT ppx: Heparin Code status: Code Anticipated discharge place: Home Anticipated discharge time:24- 48 hours Objective - Vital Signs Vital signs: Vital Signs Temp 98.1 F 10/29/24 12:00 Pulse 79 10/29/24 14:00 Resp 17 10/29/24 14:00 BP 111/56 10/29/24 12:00 Pulse Ox 92 L 10/29/24 12:00 FiO2 Intake & Output 10/28/24 10/29/24 10/29/24 18:59 06:59 18:59 Intake Total 4.471 604 6287 Output Total 6550 Balance 4.991 -6050 1430 Weight 62.7 kg 62.7 kg Intake: Intake, IV Titration 4.991 Amount Insulin Regular 100 unit 4.991 In Sodium Chloride 0.9% 100 ml @ 0.1 UNITS/KG/HR 6.734 mls/hr IV .Q15H [facility] Rx#:[id number] Oral 1430 Hemodialysis 500 Output: Urine 50 Hemodialysis 3500 Hemodialysis Net Amount 3000 Other: Voiding Method Bedside Commode Bedside Commode # Voids 1 1 - Labs CBC & Chem 7: 10/29/24 09:12 10/29/24 09:12 Labs: Abnormal Lab Results - Last 24 Hours (Table) 10/28/24 10/28/24 10/28/24 Range/Units 17:00 17:05 20:14 RBC (3.80-5.40) m/uL Hgb (11.4-16.0) gm/dL MCV (80.0-100.0) fL Sodium (137-145) mmol/L Chloride (98-107) mmol/L BUN (7-17) mg/dL Creatinine (0.52-1.04) mg/dL Glucose (74-99) mg/dL POC Glucose (mg/dL) 271 H 137 H (70-110) mg/dL Calcium (8.4-10.2) mg/dL Urine Appearance Turbid H (Clear) Urine Protein 3+ H (Negative) Urine Glucose (UA) 2+ H (Negative) Urine Blood Small H (Negative) Ur Leukocyte Esterase Large H (Negative) Urine WBC >182 H (0-5) /hpf Ur Squamous Epith Cells 9 H (0-4) /hpf 10/29/24 10/29/24 10/29/24 Range/Units 01:59 05:55 09:12 RBC 3.39 L (3.80-5.40) m/uL Hgb 11.1 L (11.4-16.0) gm/dL MCV 100.2 H (80.0-100.0) fL Sodium (137-145) mmol/L Chloride (98-107) mmol/L BUN (7-17) mg/dL Creatinine (0.52-1.04) mg/dL Glucose (74-99) mg/dL POC Glucose (mg/dL) 207 H 136 H (70-110) mg/dL Calcium (8.4-10.2) mg/dL Urine Appearance (Clear) Urine Protein (Negative) Urine Glucose (UA) (Negative) Urine Blood (Negative) Ur Leukocyte Esterase (Negative) Urine WBC (0-5) /hpf Ur Squamous Epith Cells (0-4) /hpf 10/29/24 10/29/24 Range/Units 09:12 11:41 RBC (3.80-5.40) m/uL Hgb (11.4-16.0) gm/dL MCV (80.0-100.0) fL Sodium 128 L (137-145) mmol/L Chloride 95 L (98-107) mmol/L BUN 28 H (7-17) mg/dL Creatinine 1.87 H (0.52-1.04) mg/dL Glucose 267 H (74-99) mg/dL POC Glucose (mg/dL) 378 H (70-110) mg/dL Calcium 7.6 L (8.4-10.2) mg/dL Urine Appearance (Clear) Urine Protein (Negative) Urine Glucose (UA) (Negative) Urine Blood (Negative) Ur Leukocyte Esterase (Negative) Urine WBC (0-5) /hpf Ur Squamous Epith Cells (0-4) /hpf
[2024-10-29] MEDS: INSULIN ASPART (NovoLOG) 100 UNIT/ML VIAL SQ SCH (17:31)
--- NOTE | 2024-10-29 20:40 | P.PN ---
Subjective Patient is seen for follow-up for end-stage renal disease. Scheduled for hemodialysis in a.m. Complaining of diarrhea. Objective - Vital Signs Vital signs: Vital Signs Temp 97.8 F 10/29/24 20:27 Pulse 80 10/29/24 20:27 Resp 16 10/29/24 20:27 BP 120/66 10/29/24 20:27 Pulse Ox 94 L 10/29/24 20:27 FiO2 Intake & Output 10/29/24 10/29/24 10/30/24 06:59 18:59 06:59 Intake Total 500 1670 Output Total 6550 Balance -6050 1670 Weight 62.7 kg 62.7 kg Intake: Oral 1670 Hemodialysis 500 Output: Urine 50 Hemodialysis 3500 Hemodialysis Net Amount 3000 Other: Voiding Method Bedside Commode Bedside Commode # Voids 1 1 1 # Bowel Movements 1 - Exam Patient is awake comfortable, alert oriented x 3. Examination of the heart S1 and S2 Examination of the lungs bilateral breath sounds are heard Abdomen is soft mild tenderness noted in the lower abdomen Examination of lower extremities shows edema 1+ bilaterally mostly chronic. ROPING TENDER exam grossly intact - Labs CBC & Chem 7: 10/29/24 09:12 10/29/24 09:12 Labs: Abnormal Lab Results - Last 24 Hours (Table) 10/29/24 10/29/24 10/29/24 Range/Units 01:59 05:55 09:12 RBC 3.39 L (3.80-5.40) m/uL Hgb 11.1 L (11.4-16.0) gm/dL MCV 100.2 H (80.0-100.0) fL Sodium (137-145) mmol/L Chloride (98-107) mmol/L BUN (7-17) mg/dL Creatinine (0.52-1.04) mg/dL Glucose (74-99) mg/dL POC Glucose (mg/dL) 207 H 136 H (70-110) mg/dL Calcium (8.4-10.2) mg/dL 10/29/24 10/29/24 10/29/24 Range/Units 09:12 11:41 16:40 RBC (3.80-5.40) m/uL Hgb (11.4-16.0) gm/dL MCV (80.0-100.0) fL Sodium 128 L (137-145) mmol/L Chloride 95 L (98-107) mmol/L BUN 28 H (7-17) mg/dL Creatinine 1.87 H (0.52-1.04) mg/dL Glucose 267 H (74-99) mg/dL POC Glucose (mg/dL) 378 H 305 H (70-110) mg/dL Calcium 7.6 L (8.4-10.2) mg/dL Assessment and Plan Assessment: 1. End-stage renal disease maintained on hemodialysis on Monday schedule. 2. Cardiomyopathy ejection fraction 15 to 20%. 3. Diabetes mellitus. 4. Coronary artery disease status post CABG. 6. Volume overload. 7. Hypervolemic hyponatremia. 8. ESBL emphysematous cystitis on antibiotics. Plan: Hemodialysis in a.m.
[2024-10-29 20:41] LABS: Glucose,Whole Blood 196 mg/dL (70-110)
[2024-10-29] MEDS: guaiFENesin-DM 100-10MG/5ML 10 ML CUP PO PRN (22:51)
[2024-10-30 01:18] LABS: Glucose,Whole Blood 244 mg/dL (70-110)
[2024-10-30 07:04] LABS: Glucose,Whole Blood 295 mg/dL (70-110)
[2024-10-30] MEDS: INSULIN DETEMIR (LEVEMIR) 100 UNIT/ML SYR SQ SCH (07:34)
[2024-10-30 08:57] LABS: Basophils % (A) 1 %; Eosinophils # (A) 0.1 k/uL (0-0.7); Eosinophils % (A) 3 %; HCT 33.6 % (34.0-46.0); HGB 10.8 gm/dL (11.4-16.0); Hypochromasia Slight; Lymphocytes % (A) 22 %; MCH 32.9 pg (25.0-35.0); MCHC 32.2 g/dL (31.0-37.0); MCV 102.4 fL (80.0-100.0); Macrocytosis Slight; Mean Platelet Volume 8.8; Monocytes # (A) 0.3 k/uL (0-1.0); Monocytes % (A) 6 %; Neutrophils % (A) 67 %; Platelet Count 191 k/uL (150-450); RBC 3.28 m/uL (3.80-5.40); RDW 15.1 % (11.5-15.5); WBC 4.4 k/uL (3.8-10.6)
[2024-10-30 09:09] LABS: African American GFR (CKD) 24 (>60 ml/min/1.73 sqM); Anion Gap 11 mmol/L; Blood Urea Nitrogen 36 mg/dL (7-17); Calcium 7.6 mg/dL (8.4-10.2); Carbon Dioxide 22 mmol/L (22-30); Chloride 97 mmol/L (98-107); Glucose 269 mg/dL (74-99); Non-African American GFR(CKD) 21 (>60 ml/min/1.73 sqM); Potassium 3.4 mmol/L (3.5-5.1); Sodium 130 mmol/L (137-145)
[2024-10-30 11:34] LABS: Glucose,Whole Blood 113 mg/dL (70-110)
--- NOTE | 2024-10-30 12:00 | P.PN ---
Subjective Progress Note Date: 10/30/24 Principal diagnosis: Reason for follow-up is a urinary tract infection Patient is a 59-year-old female with a past medical history significant for coronary artery disease diabetes mellitus fibromyalgia reflux hypertension hyperlipidemia [place] end-stage renal disease on dialysis still makes some urine he was recently admitted to this facility with emphysematous cystitis, urine culture positive for ESBL E. coli now presented back to the hospital chest pain also having some nausea vomiting suprapubic pain and hematuria. On today's evaluation that is 10/30/2024,the patient denies any fever or any chills, patient is breathing comfortably on room air, the patient denies chest pain shortness of breath and no significant cough, patient still complaining of some suprapubic discomfort nausea but no vomiting or diarrhea. Patient white count is 4.4, creatinine 2.43 urine cultures currently pending Objective - Vital Signs Vital signs: Vital Signs Temp 97.7 F 10/30/24 11:34 Pulse 81 10/30/24 11:34 Resp 11 L 10/30/24 11:34 BP 112/62 10/30/24 11:34 Pulse Ox 96 10/30/24 11:34 FiO2 Intake & Output 10/29/24 10/30/24 10/30/24 18:59 06:59 18:59 Intake Total 1670 118 Balance 1670 118 Weight 62.7 kg 64.5 kg Intake: Oral 1670 118 Other: Voiding Method Bedside Commode Bedside Commode Bedside Commode # Voids 1 3 # Bowel Movements 3 - Exam GENERAL DESCRIPTION: Middle-age female lying in bed in no distress RESPIRATORY SYSTEM: Unlabored breathing , decreased breath sounds at bases HEART: S1 S2 regular rate and rhythm , ABDOMEN: Soft , no tenderness EXTREMITIES: No edema feet - Labs CBC & Chem 7: 10/30/24 08:13 10/30/24 08:13 Labs: Abnormal Lab Results - Last 24 Hours (Table) 10/29/24 10/29/24 10/29/24 Range/Units 09:12 16:40 20:39 RBC (3.80-5.40) m/uL Hgb (11.4-16.0) gm/dL Hct (34.0-46.0) % MCV (80.0-100.0) fL Sodium (137-145) mmol/L Potassium (3.5-5.1) mmol/L Chloride (98-107) mmol/L BUN (7-17) mg/dL Creatinine (0.52-1.04) mg/dL Glucose (74-99) mg/dL POC Glucose (mg/dL) 305 H 196 H (70-110) mg/dL Hemoglobin A1c 10.0 H (<=6.0) % Calcium (8.4-10.2) mg/dL 10/30/24 10/30/24 10/30/24 Range/Units 01:16 07:02 08:13 RBC 3.28 L (3.80-5.40) m/uL Hgb 10.8 L (11.4-16.0) gm/dL Hct 33.6 L (34.0-46.0) % MCV 102.4 H (80.0-100.0) fL Sodium (137-145) mmol/L Potassium (3.5-5.1) mmol/L Chloride (98-107) mmol/L BUN (7-17) mg/dL Creatinine (0.52-1.04) mg/dL Glucose (74-99) mg/dL POC Glucose (mg/dL) 244 H 295 H (70-110) mg/dL Hemoglobin A1c (<=6.0) % Calcium (8.4-10.2) mg/dL 10/30/24 10/30/24 Range/Units 08:13 11:32 RBC (3.80-5.40) m/uL Hgb (11.4-16.0) gm/dL Hct (34.0-46.0) % MCV (80.0-100.0) fL Sodium 130 L (137-145) mmol/L Potassium 3.4 L (3.5-5.1) mmol/L Chloride 97 L (98-107) mmol/L BUN 36 H (7-17) mg/dL Creatinine 2.43 H (0.52-1.04) mg/dL Glucose 269 H (74-99) mg/dL POC Glucose (mg/dL) 113 H (70-110) mg/dL Hemoglobin A1c (<=6.0) % Calcium 7.6 L (8.4-10.2) mg/dL Microbiology - Last 24 Hours (Table) 10/28/24 17:00 Urine Culture - Preliminary Urine,Voided Assessment and Plan (1) History of infection due to ESBL Escherichia coli Current Visit: Yes Status: Acute Code(s): Z86.19 - PERSONAL HISTORY OF OTHER INFECTIOUS AND PARASITIC DISEASES SNOMED Code(s): 826404011 (2) UTI (urinary tract infection) Current Visit: No Status: Acute Code(s): N39.0 - URINARY TRACT INFECTION, SITE NOT SPECIFIED SNOMED Code(s): 44552376 Plan: 1patient with symptoms of nausea and vomiting suprapubic discomfort burning urine along with some blood in the urine concerning for cystitis in this patient who recently did have recent ESBL E. coli emphysematous cystitis CT abdominal pelvis this admission did not show any emphysematous cystitis, colovesicular fistula cannot be excluded subsequently did have a CT without contrast with concern for uncomplicated colitis patient will benefit from CT of the pelvis with rectal contrast to evaluate for any colovesical fistula may be responsible for these recurrent UTIs 2-patient urine culture currently pending, patient will be treated with Invanz while waiting for the culture to finalize and monitor clinical course closely Dictation was produced using [employer] dictation software. please excuse any grammatical, word or spelling errors. Time with Patient: Less than 30
--- NOTE | 2024-10-30 13:07 | P.PN ---
Subjective HISTORY OF PRESENT ILLNESS: This is a 59-year-old female with a past medical history significant for coronary artery disease with previous CABG, ischemic cardiomyopathy, hypertension, diabetes, and nicotine dependence. Patient follows in the office with Dr. Saunders. We have been asked to see the patient in consultation for chest pain. Patient examined at the bedside in the emergency room by Dr. Sands. Patient presented to the hospital with a chief complaint of chest pain. Patient reports that the pain radiated into both of her arms. Patient also reports that she has been having nausea vomiting, and diarrhea. She did miss her dialysis sessions on Monday and Monday due to diarrhea. At the time of examination she denies any chest pain or shortness of breath. DIAGNOSTICS: - EKG reveals sinus mechanism with IVCD. Baseline artifact. - Chest xray negative for acute process. - Laboratory data: WBC 6.6. Hemoglobin 10.9. Platelet count 169. Sodium 127. BUN 57. Creatinine 2.71. Troponin negative x 3. proBNP 41,300. - Current home cardiac medications include aspirin 81 mg daily, atorvastatin 40 mg at night, Plavix 75 mg daily, metoprolol succinate 25 mg daily, Entresto 24- 26 mg twice a day, Demadex 40 mg daily, midodrine 5 mg twice a day as needed. - Most recent echocardiogram obtained in August 2024 revealed ejection fraction of 15 to 20%, left pleural effusion. Severe TR, mild to moderate AR, severe MR - Cardiac catheterization history: February 2024 revealed calcified coronary arteries. Severe triple-vessel disease. Right dominant system. Mildly elevated LVEDP. 10/29/2024 Patient examined this morning at the bedside. Patient denies chest pain or pressure. Denies SOB. Limited echo pending. Cardiogram completed revealing ejection fraction 25 to 30%, mild MR, trace AR, mild TR 10/30/2024 Patient examined this morning the bedside. Patient is lethargic this morning. No complaints of chest pain or shortness of breath. PHYSICAL EXAM: VITAL SIGNS: Reviewed. GENERAL: Well-developed in no acute distress. HEENT: Head is normocephalic. Pupils are equal, round. Sclerae anicteric. Mucous membranes of the mouth are moist. Neck supple. No JVD or thyromegaly LUNGS: Respirations even and unlabored. Lungs essentially clear to auscultation bilaterally. HEART: Regular rate and rhythm. S1 and S2 heard. ABDOMEN: Soft. Nondistended. Nontender. EXTREMITIES: Normal range of motion. No clubbing or cyanosis. Peripheral pulses intact. No lower extremity edema NEUROLOGIC: Awake and alert. Oriented x 3. ASSESSMENT: DKA Chest pain, troponin negative x 3 Coronary artery disease with previous CABG Ischemic cardiomyopathy, 15 to 20% Chronic heart failure with reduced EF, currently not fluid overloaded End stage renal disease on hemodialysis Valvular heart disease Hypertension Diabetes Nicotine dependence PLAN: An acute coronary event has been ruled out Continue current cardiac medications Patient is not a candidate for any invasive cardiac procedures at this time Recommend eventual evaluation for ICD implantation We will follow on an as-needed basis. Please call with questions or concerns. Nurse practitioner note has been reviewed by physician. Signing provider agrees with the documented findings, assessment, and plan of care documented by [employer] as a scribe. Objective - Vital Signs Vital signs: Vital Signs Temp 97.7 F 10/30/24 11:34 Pulse 81 10/30/24 11:34 Resp 11 L 10/30/24 11:34 BP 112/62 10/30/24 11:34 Pulse Ox 96 10/30/24 11:34 FiO2 Intake & Output 10/29/24 10/30/24 10/30/24 18:59 06:59 18:59 Intake Total 1670 118 Balance 1670 118 Weight 62.7 kg 64.5 kg Intake: Oral 1670 118 Other: Voiding Method Bedside Commode Bedside Commode Bedside Commode # Voids 1 3 # Bowel Movements 3 - Labs CBC & Chem 7: 10/30/24 08:13 10/30/24 08:13 Labs: Abnormal Lab Results - Last 24 Hours (Table) 10/29/24 10/29/24 10/29/24 Range/Units 09:12 16:40 20:39 RBC (3.80-5.40) m/uL Hgb (11.4-16.0) gm/dL Hct (34.0-46.0) % MCV (80.0-100.0) fL Sodium (137-145) mmol/L Potassium (3.5-5.1) mmol/L Chloride (98-107) mmol/L BUN (7-17) mg/dL Creatinine (0.52-1.04) mg/dL Glucose (74-99) mg/dL POC Glucose (mg/dL) 305 H 196 H (70-110) mg/dL Hemoglobin A1c 10.0 H (<=6.0) % Calcium (8.4-10.2) mg/dL 10/30/24 10/30/24 10/30/24 Range/Units 01:16 07:02 08:13 RBC 3.28 L (3.80-5.40) m/uL Hgb 10.8 L (11.4-16.0) gm/dL Hct 33.6 L (34.0-46.0) % MCV 102.4 H (80.0-100.0) fL Sodium (137-145) mmol/L Potassium (3.5-5.1) mmol/L Chloride (98-107) mmol/L BUN (7-17) mg/dL Creatinine (0.52-1.04) mg/dL Glucose (74-99) mg/dL POC Glucose (mg/dL) 244 H 295 H (70-110) mg/dL Hemoglobin A1c (<=6.0) % Calcium (8.4-10.2) mg/dL 10/30/24 10/30/24 Range/Units 08:13 11:32 RBC (3.80-5.40) m/uL Hgb (11.4-16.0) gm/dL Hct (34.0-46.0) % MCV (80.0-100.0) fL Sodium 130 L (137-145) mmol/L Potassium 3.4 L (3.5-5.1) mmol/L Chloride 97 L (98-107) mmol/L BUN 36 H (7-17) mg/dL Creatinine 2.43 H (0.52-1.04) mg/dL Glucose 269 H (74-99) mg/dL POC Glucose (mg/dL) 113 H (70-110) mg/dL Hemoglobin A1c (<=6.0) % Calcium 7.6 L (8.4-10.2) mg/dL Microbiology - Last 24 Hours (Table) 10/28/24 17:00 Urine Culture - Preliminary Urine,Voided
[2024-10-30] MEDS: POTASSIUM CHLORIDE ER 20 MEQ TAB.ER PO STA (15:46)
[2024-10-30] MEDS: MIDODRINE 5 MG TAB PO PRN (15:46)
--- NOTE | 2024-10-30 16:07 | P.PN ---
Subjective Progress Note Date: 10/30/24 Hospital Course: 59-year-old female with PMH of CAD with ischemic cardiomyopathy with EF of 15 to 20%, COPD, ESRD on dialysis MWF via R chest catheter, diabetes mellitus, fibromyalgia, GERD, hyperlipidemia, hypertension, and osteoarthritis presented to the emergency department for chest pain. Started on 9:30AM, woke her up from sleep. Pain is intermittent, pressure like in nature, left sided and radiates to the right arm and neck. Pain is associated with shortness of breath. No changes with movement or deep inspiration. Patient reports missing her Wed and Fri dialysis session due to diarrhea (ongoing for the past 2 months). She reports poor appetite and despite not eating much her blood glucose has been running high. She reports intermittent nausea and vomiting. Previously admitted from 09/13-09/20 for treatment of emphysematous cystitis with micorperforations, Urology recommended evaluation for enterovesical fistula at that time but patient refused. She was discharged to SNF on Ertapenem for 10 days. In the ED she underwent extensive evaluation: BP 139/66, HR 85, RR 20, T 97.4F, 100% on 2L NC. CBC, Coag panel, CMP significant for RBC 3.4, Hg 10.9, MCV 106.3, Na 126, Cl 90, bicarb 9, BUN 56, Cr 3.32, glu 681, Ca 8.2, alk phos 202, alb 3. Lipase 22. Trop 0.03. Acetone positive. ABG pH 7.31, pCO2 31. EKG sinus rhythm with interventricular conduction delay. CXR no acute process. Patient is admitted for further workup and management. Started on insulin drip and D5 1/2 NS with KCl IV for DKA. DKA resolved and she was transitioned to ISS. Troponins trended 0.03, 0.025, 0.024 and ACS was ruled out. Cardiology consulted, recommended Echo. Patient with complaints of dysuria, started on Ertapenem for h/o ESBL and ID consulted. CT AP with PO contrast ordered given history of emphysematous cystitis with microperforations concerning for enterovesical fistula which showed diffucse anasarca and edema, no free air in the bladder. TTE on 10/29 showed EF 25 to 30% with severely increased left ventricular diastolic volume, left ventricular systolic volume, inferoseptal dyskinesis, mild pulmonary hypertension RVSP 35 CT abdomen with rectal contrast: More prominent diffuse anasarca and edema, no free air or contrast in the bladder lumen to diagnose fistula, cannot exclude ac [place] uncomplicated colitis. Readmission prevention admitting 10/30:. Patient recurrently misses her Monday hemodialysis, sometimes monday hemodialysis, hemodialysis transportation is arranged. Due to ongoing diarrhea, CT findings suggestive of possible colitis and transverse colon, GI consulted. Patient plans to get IV and oral opiates during her admissions, she does have history of methamphetamine abuse, concern for opioid use disorder, pain medicine consulted. Psychiatry consulted to evaluate for depression possibly contributing to noncompliance. Pertinent Imaging: No new imaging Subjective: Patient was seen and examined at bedside, complaint follow-up bowel movement most yesterday, continues to abdominal pain, vague Pertinent positives and negatives as discussed above, a complete review of systems was performed and all other systems are negative. Vitals Signs Reviewed. General: [nontoxic], [no distress], [appears at stated age], chronically ill appearing Derm: [warm], [dry] Head: [atraumatic], [normocephalic], [symmetric] Eyes: [EOMI], [no lid lag], [anicteric sclera] Mouth: [no lip lesion], [mucus membranes moist] Cardiovascular: [S1S2 reg], [no murmur] Lungs: [CTA bilateral], [no rhonchi, no rales] , [no accessory muscle use] Abdominal: [soft], [ nontender to palpation], [no guarding], [no appreciable organomegaly] Ext: [no gross muscle atrophy], [no edema], [no contractures] Neuro: [ CN II-XI grossly intact], [no focal neuro deficits] Psych: [Alert], [oriented], [appropriate affect] Data Reviewed Today: Pertinent Labs: [] Hemoglobin 10.8, no leukocytosis, stable normal platelets, sodium 130, potassium 3.4, glucose is controlled Assessment and Plan: Chest pain, resolved. History of CAD with stenting, history of CABG, ACS ruled out CHF with EF 25 to 30%, not in acute exacerbation -Cardiology following, continue current medications, no need of invasive procedures, needs to be evaluated for ICD implantation ESRD on HD, -Continue HD per nephrology, hx of ESBL E. coli emphysematous cystitis UTI Acute on chronic diarrhea Possible colitis -Continue Invanz, ID following, follow-up final blood cultures -Patient apparently did not initially rectal contrast for the CT, she was showing possible colitis -GI consulted History of methamphetamine use, concern for opioid use disorder, consulted pain Noncompliance with HD, concern for depression: Consulted psychiatry COPD not in exacerbation: Continue DuoNebs, Symbicort, Spiriva GERD: Continue Protonix Hypothyroidism: Continue Synthroid 176 Hyperlipidemia: Continue Lipitor Hypertension: Metoprolol, torsemide, Entresto Type II DM with hyperglycemia Basal bolus with Levemir 9 units and mealtime 3 units, continue SSI [Resolved:] DKA \ DVT ppx: Heparin Code status: Code Anticipated discharge place: Home Anticipated discharge time: Pending clinical stability Objective - Vital Signs Vital signs: Vital Signs Temp 97.7 F 10/30/24 11:34 Pulse 81 10/30/24 11:34 Resp 11 L 10/30/24 11:34 BP 112/62 10/30/24 11:34 Pulse Ox 96 10/30/24 11:34 FiO2 Intake & Output 10/29/24 10/30/24 10/30/24 18:59 06:59 18:59 Intake Total 1670 118 Balance 1670 118 Weight 62.7 kg 64.5 kg Intake: Oral 1670 118 Other: Voiding Method Bedside Commode Bedside Commode Bedside Commode # Voids 1 3 # Bowel Movements 3 - Labs CBC & Chem 7: 10/30/24 08:13 10/30/24 08:13 Labs: Abnormal Lab Results - Last 24 Hours (Table) 10/29/24 10/29/24 10/29/24 Range/Units 09:12 16:40 20:39 RBC (3.80-5.40) m/uL Hgb (11.4-16.0) gm/dL Hct (34.0-46.0) % MCV (80.0-100.0) fL Sodium (137-145) mmol/L Potassium (3.5-5.1) mmol/L Chloride (98-107) mmol/L BUN (7-17) mg/dL Creatinine (0.52-1.04) mg/dL Glucose (74-99) mg/dL POC Glucose (mg/dL) 305 H 196 H (70-110) mg/dL Hemoglobin A1c 10.0 H (<=6.0) % Calcium (8.4-10.2) mg/dL 10/30/24 10/30/24 10/30/24 Range/Units 01:16 07:02 08:13 RBC 3.28 L (3.80-5.40) m/uL Hgb 10.8 L (11.4-16.0) gm/dL Hct 33.6 L (34.0-46.0) % MCV 102.4 H (80.0-100.0) fL Sodium (137-145) mmol/L Potassium (3.5-5.1) mmol/L Chloride (98-107) mmol/L BUN (7-17) mg/dL Creatinine (0.52-1.04) mg/dL Glucose (74-99) mg/dL POC Glucose (mg/dL) 244 H 295 H (70-110) mg/dL Hemoglobin A1c (<=6.0) % Calcium (8.4-10.2) mg/dL 10/30/24 10/30/24 Range/Units 08:13 11:32 RBC (3.80-5.40) m/uL Hgb (11.4-16.0) gm/dL Hct (34.0-46.0) % MCV (80.0-100.0) fL Sodium 130 L (137-145) mmol/L Potassium 3.4 L (3.5-5.1) mmol/L Chloride 97 L (98-107) mmol/L BUN 36 H (7-17) mg/dL Creatinine 2.43 H (0.52-1.04) mg/dL Glucose 269 H (74-99) mg/dL POC Glucose (mg/dL) 113 H (70-110) mg/dL Hemoglobin A1c (<=6.0) % Calcium 7.6 L (8.4-10.2) mg/dL Microbiology - Last 24 Hours (Table) 10/28/24 17:00 Urine Culture - Preliminary Urine,Voided
[2024-10-30 16:47] LABS: Glucose,Whole Blood 59 mg/dL (70-110)
[2024-10-30 17:23] LABS: Glucose,Whole Blood 58 mg/dL (70-110)
[2024-10-30 17:40] LABS: Glucose,Whole Blood 59 mg/dL (70-110)
[2024-10-30 17:53] LABS: Glucose,Whole Blood 59 mg/dL (70-110)
[2024-10-30 18:12] LABS: Glucose,Whole Blood 59 mg/dL (70-110)
[2024-10-30] MEDS: DEXTROSE 50% SYRINGE 50 ML IVP PRN (18:21)
[2024-10-30 18:39] LABS: Glucose,Whole Blood 77 mg/dL (70-110)
[2024-10-30] MEDS: CHOLESTYRAMINE (WITH SUGAR) 4 GM PACKET PO SCH (19:26)
--- NOTE | 2024-10-30 19:47 | P.PN ---
Subjective Patient is seen for follow-up for end-stage renal disease. Scheduled for hemodialysis today. Patient is a bit sleepy today. She is maintained on morphine and [place]. Objective - Vital Signs Vital signs: Vital Signs Temp 97.9 F 10/30/24 19:35 Pulse 76 10/30/24 19:35 Resp 16 10/30/24 19:35 BP 150/69 10/30/24 19:35 Pulse Ox 94 L 10/30/24 15:40 FiO2 Intake & Output 10/30/24 10/30/24 10/31/24 06:59 18:59 06:59 Intake Total 118 500 Output Total 4100 Balance 118 -3600 Weight 64.5 kg Intake: Oral 118 Hemodialysis 500 Output: Hemodialysis 2300 Hemodialysis Net Amount 1800 Other: Voiding Method Bedside Commode Bedside Commode # Voids 3 # Bowel Movements 3 - Exam Patient is awake comfortable, alert oriented x 3. Examination of the heart S1 and S2 Examination of the lungs bilateral breath sounds are heard Abdomen is soft mild tenderness noted in the lower abdomen Examination of lower extremities shows edema 1+ bilaterally mostly chronic. LEGAL INVESTIGATOR exam grossly intact - Labs CBC & Chem 7: 10/30/24 08:13 10/30/24 08:13 Labs: Abnormal Lab Results - Last 24 Hours (Table) 10/29/24 10/29/24 10/30/24 Range/Units 09:12 20:39 01:16 RBC (3.80-5.40) m/uL Hgb (11.4-16.0) gm/dL Hct (34.0-46.0) % MCV (80.0-100.0) fL Sodium (137-145) mmol/L Potassium (3.5-5.1) mmol/L Chloride (98-107) mmol/L BUN (7-17) mg/dL Creatinine (0.52-1.04) mg/dL Glucose (74-99) mg/dL POC Glucose (mg/dL) 196 H 244 H (70-110) mg/dL Hemoglobin A1c 10.0 H (<=6.0) % Calcium (8.4-10.2) mg/dL 10/30/24 10/30/24 10/30/24 Range/Units 07:02 08:13 08:13 RBC 3.28 L (3.80-5.40) m/uL Hgb 10.8 L (11.4-16.0) gm/dL Hct 33.6 L (34.0-46.0) % MCV 102.4 H (80.0-100.0) fL Sodium 130 L (137-145) mmol/L Potassium 3.4 L (3.5-5.1) mmol/L Chloride 97 L (98-107) mmol/L BUN 36 H (7-17) mg/dL Creatinine 2.43 H (0.52-1.04) mg/dL Glucose 269 H (74-99) mg/dL POC Glucose (mg/dL) 295 H (70-110) mg/dL Hemoglobin A1c (<=6.0) % Calcium 7.6 L (8.4-10.2) mg/dL 10/30/24 10/30/24 10/30/24 Range/Units 11:32 16:47 17:22 RBC (3.80-5.40) m/uL Hgb (11.4-16.0) gm/dL Hct (34.0-46.0) % MCV (80.0-100.0) fL Sodium (137-145) mmol/L Potassium (3.5-5.1) mmol/L Chloride (98-107) mmol/L BUN (7-17) mg/dL Creatinine (0.52-1.04) mg/dL Glucose (74-99) mg/dL POC Glucose (mg/dL) 113 H 59 L 58 L (70-110) mg/dL Hemoglobin A1c (<=6.0) % Calcium (8.4-10.2) mg/dL 10/30/24 10/30/24 10/30/24 Range/Units 17:39 17:52 18:11 RBC (3.80-5.40) m/uL Hgb (11.4-16.0) gm/dL Hct (34.0-46.0) % MCV (80.0-100.0) fL Sodium (137-145) mmol/L Potassium (3.5-5.1) mmol/L Chloride (98-107) mmol/L BUN (7-17) mg/dL Creatinine (0.52-1.04) mg/dL Glucose (74-99) mg/dL POC Glucose (mg/dL) 59 L 59 L 59 L (70-110) mg/dL Hemoglobin A1c (<=6.0) % Calcium (8.4-10.2) mg/dL Microbiology - Last 24 Hours (Table) 10/28/24 17:00 Urine Culture - Preliminary Urine,Voided Assessment and Plan Assessment: 1. End-stage renal disease maintained on hemodialysis on Monday schedule. 2. Cardiomyopathy ejection fraction 15 to 20%. 3. Diabetes mellitus. 4. Coronary artery disease status post CABG. 6. Volume overload. 7. Hypervolemic hyponatremia. 8. ESBL emphysematous cystitis on antibiotics. Plan: Hemodialysis today. Continue Demadex Recommend decrease pain medications.
[2024-10-30 20:21] LABS: Glucose,Whole Blood 115 mg/dL (70-110)
[2024-10-31 03:15] LABS: Glucose,Whole Blood 318 mg/dL (70-110)
[2024-10-31 05:46] LABS: Glucose,Whole Blood 406 mg/dL (70-110)
[2024-10-31 06:26] LABS: Basophils % (A) 0 %; Eosinophils # (A) 0.1 k/uL (0-0.7); Eosinophils % (A) 2 %; HGB 11.1 gm/dL (11.4-16.0); Hypochromasia Marked; Lymphocytes # (A) 0.7 k/uL (1.0-4.8); Lymphocytes % (A) 18 %; MCH 32.7 pg (25.0-35.0); MCHC 31.6 g/dL (31.0-37.0); MCV 103.5 fL (80.0-100.0); Macrocytosis Slight; Mean Platelet Volume 7.9; Monocytes # (A) 0.4 k/uL (0-1.0); Monocytes % (A) 9 %; Neutrophils # (A) 2.8 k/uL (1.3-7.7); Neutrophils % (A) 68 %; Platelet Count 143 k/uL (150-450); RBC 3.38 m/uL (3.80-5.40); RDW 14.5 % (11.5-15.5)
[2024-10-31 06:47] LABS: African American GFR (CKD) 38 (>60 ml/min/1.73 sqM); Anion Gap 6 mmol/L; Blood Urea Nitrogen 21 mg/dL (7-17); Calcium 7.4 mg/dL (8.4-10.2); Carbon Dioxide 25 mmol/L (22-30); Chloride 97 mmol/L (98-107); Glucose 395 mg/dL (74-99); Non-African American GFR(CKD) 33 (>60 ml/min/1.73 sqM); Potassium 4.9 mmol/L (3.5-5.1); Sodium 128 mmol/L (137-145)
[2024-10-31 09:22] LABS: Basophils % (A) 0 %; Eosinophils # (A) 0.2 k/uL (0-0.7); Eosinophils % (A) 3 %; HCT 34.3 % (34.0-46.0); HGB 10.6 gm/dL (11.4-16.0); Hypochromasia Slight; Lymphocytes # (A) 0.9 k/uL (1.0-4.8); Lymphocytes % (A) 19 %; MCV 103.4 fL (80.0-100.0); Macrocytosis Moderate; Mean Platelet Volume 8.5; Monocytes # (A) 0.3 k/uL (0-1.0); Monocytes % (A) 6 %; Neutrophils # (A) 3.4 k/uL (1.3-7.7); Neutrophils % (A) 69 %; Platelet Count 170 k/uL (150-450); RBC 3.32 m/uL (3.80-5.40); WBC 4.9 k/uL (3.8-10.6)
[2024-10-31 09:41] LABS: African American GFR (CKD) 36 (>60 ml/min/1.73 sqM); Anion Gap 9 mmol/L; Blood Urea Nitrogen 22 mg/dL (7-17); Calcium 7.6 mg/dL (8.4-10.2); Carbon Dioxide 24 mmol/L (22-30); Chloride 98 mmol/L (98-107); Glucose 273 mg/dL (74-99); Non-African American GFR(CKD) 31 (>60 ml/min/1.73 sqM); Potassium 3.8 mmol/L (3.5-5.1); Sodium 131 mmol/L (137-145)
[2024-10-31 10:13] LABS: Glucose,Whole Blood 192 mg/dL (70-110)
[2024-10-31] MEDS: MORPHINE SULFATE 2 MG/ML SYRINGE IVP PRN (11:00)
[2024-10-31 12:03] LABS: Glucose,Whole Blood 98 mg/dL (70-110)
--- NOTE | 2024-10-31 12:35 | P.PN ---
Subjective Progress Note Date: 10/31/24 Hospital Course: 59-year-old female with PMH of CAD with ischemic cardiomyopathy with EF of 15 to 20%, COPD, ESRD on dialysis MWF via R chest catheter, diabetes mellitus, fibromyalgia, GERD, hyperlipidemia, hypertension, and osteoarthritis presented to the emergency department for chest pain. Started on 9:30AM, woke her up from sleep. Pain is intermittent, pressure like in nature, left sided and radiates to the right arm and neck. Pain is associated with shortness of breath. No changes with movement or deep inspiration. Patient reports missing her Wed and Fri dialysis session due to diarrhea (ongoing for the past 2 months). She reports poor appetite and despite not eating much her blood glucose has been running high. She reports intermittent nausea and vomiting. Previously admitted from 09/13-09/20 for treatment of emphysematous cystitis with micorperforations, Urology recommended evaluation for enterovesical fistula at that time but patient refused. She was discharged to SNF on Ertapenem for 10 days. In the ED she underwent extensive evaluation: BP 139/66, HR 85, RR 20, T 97.4F, 100% on 2L NC. CBC, Coag panel, CMP significant for RBC 3.4, Hg 10.9, MCV 106.3, Na 126, Cl 90, bicarb 9, BUN 56, Cr 3.32, glu 681, Ca 8.2, alk phos 202, alb 3. Lipase 22. Trop 0.03. Acetone positive. ABG pH 7.31, pCO2 31. EKG sinus rhythm with interventricular conduction delay. CXR no acute process. Patient is admitted for further workup and management. Started on insulin drip and D5 1/2 NS with KCl IV for DKA. DKA resolved and she was transitioned to ISS. Troponins trended 0.03, 0.025, 0.024 and ACS was ruled out. Cardiology consulted, recommended Echo. Patient with complaints of dysuria, started on Ertapenem for h/o ESBL and ID consulted. CT AP with PO contrast ordered given history of emphysematous cystitis with microperforations concerning for enterovesical fistula which showed diffucse anasarca and edema, no free air in the bladder. TTE on 10/29 showed EF 25 to 30% with severely increased left ventricular diastolic volume, left ventricular systolic volume, inferoseptal dyskinesis, mild pulmonary hypertension RVSP 35 CT abdomen with rectal contrast: More prominent diffuse anasarca and edema, no free air or contrast in the bladder lumen to diagnose fistula, cannot exclude ac [place] uncomplicated colitis. Readmission prevention meeting 10/30:. Patient recurrently misses her Monday hemodialysis, sometimes monday hemodialysis, hemodialysis transportation is arranged. Due to ongoing diarrhea, CT findings suggestive of possible colitis and transverse colon, GI consulted. Cdiff ordered, pending Patient plans to get IV and oral opiates during her admissions, she does have history of methamphetamine abuse, concern for opioid use disorder, pain medicine consulted. Psychiatry consulted to evaluate for depression possibly contributing to noncompliance. Pertinent Imaging: No new imaging Subjective: Complains of mild abdominal discomfort, overnight again had more episodes of loose bowel movements Pertinent positives and negatives as discussed above, a complete review of systems was performed and all other systems are negative. Vitals Signs Reviewed. General: [nontoxic], [no distress], [appears at stated age], chronically ill appearing Derm: [warm], [dry] Head: [atraumatic], [normocephalic], [symmetric] Eyes: [EOMI], [no lid lag], [anicteric sclera] Mouth: [no lip lesion], [mucus membranes moist] Cardiovascular: [S1S2 reg], [no murmur] Lungs: [CTA bilateral], [no rhonchi, no rales] , [no accessory muscle use] Abdominal: [soft], [ nontender to palpation], [no guarding], [no appreciable organomegaly] Ext: [no gross muscle atrophy], [no edema], [no contractures] Neuro: [ CN II-XI grossly intact], [no focal neuro deficits] Psych: [Alert], [oriented], [appropriate affect] Data Reviewed Today: Pertinent Labs: WBC normal at 4.9, hemoglobin stable 10.6, platelet count normal at 317, sodium improving 131 now, glucose fluctuates from 90s to 400s Imaging: No new imaging Assessment and Plan: Chest pain, resolved. History of CAD with stenting, history of CABG, ACS ruled out CHF with EF 25 to 30%, not in acute exacerbation -Cardiology following, continue current medications, no need of invasive procedures, needs to be evaluated for ICD implantatio ESRD on HD Anemia of chronic disease Thrombocytopenia, resolved Hypochloremic hypernatremia, improving -Continue HD per nephrology, hx of ESBL E. coli emphysematous cystitis UTI Hx of emphysematous cystitis Acute on chronic diarrhea Possible colitis -Continue Invanz, ID following, follow-up final blood cultures -Patient apparently did not initially rectal contrast for the CT, she was showing possible colitis -GI consulted, CT ordered, pending History of methamphetamine use, concern for opioid use disorder, consulted pain Noncompliance with HD, concern for depression: Consulted psychiatry COPD not in exacerbation: Continue DuoNebs, Symbicort, Spiriva GERD: Continue Protonix Hypothyroidism: Continue Synthroid 176 Hyperlipidemia: Continue Lipitor Hypertension: Metoprolol, torsemide, Entresto Type II DM with hyperglycemia Basal bolus with Levemir 9 units and mealtime 3 units, continue SSI [Resolved:] DKA \ DVT ppx: Heparin Code status: Code Anticipated discharge place: Home Anticipated discharge time: Pending clinical stability Objective - Vital Signs Vital signs: Vital Signs Temp 97.6 F 10/31/24 08:00 Pulse 76 10/31/24 08:00 Resp 14 10/31/24 08:00 BP 105/57 10/31/24 08:00 Pulse Ox 96 10/31/24 04:00 FiO2 Intake & Output 10/30/24 10/31/24 10/31/24 18:59 06:59 18:59 Intake Total 118 1220 118 Output Total 4300 Balance 118 -3080 118 Weight 64.6 kg Intake: Oral 118 720 118 Hemodialysis 500 Output: Urine 200 Hemodialysis 2300 Hemodialysis Net Amount 1800 Other: Voiding Method Bedside Commode Bedside Commode Bedside Commode # Voids 1 # Bowel Movements 1 1 - Labs CBC & Chem 7: 10/31/24 08:58 10/31/24 08:58 Labs: Abnormal Lab Results - Last 24 Hours (Table) 10/30/24 10/30/24 10/30/24 Range/Units 16:47 17:22 17:39 RBC (3.80-5.40) m/uL Hgb (11.4-16.0) gm/dL MCV (80.0-100.0) fL Plt Count (150-450) k/uL Lymphocytes # (1.0-4.8) k/uL Sodium (137-145) mmol/L Chloride (98-107) mmol/L BUN (7-17) mg/dL Creatinine (0.52-1.04) mg/dL Glucose (74-99) mg/dL POC Glucose (mg/dL) 59 L 58 L 59 L (70-110) mg/dL Calcium (8.4-10.2) mg/dL 10/30/24 10/30/24 10/30/24 Range/Units 17:52 18:11 20:20 RBC (3.80-5.40) m/uL Hgb (11.4-16.0) gm/dL MCV (80.0-100.0) fL Plt Count (150-450) k/uL Lymphocytes # (1.0-4.8) k/uL Sodium (137-145) mmol/L Chloride (98-107) mmol/L BUN (7-17) mg/dL Creatinine (0.52-1.04) mg/dL Glucose (74-99) mg/dL POC Glucose (mg/dL) 59 L 59 L 115 H (70-110) mg/dL Calcium (8.4-10.2) mg/dL 10/31/24 10/31/24 10/31/24 Range/Units 03:14 05:41 05:41 RBC 3.38 L (3.80-5.40) m/uL Hgb 11.1 L (11.4-16.0) gm/dL MCV 103.5 H (80.0-100.0) fL Plt Count 143 L (150-450) k/uL Lymphocytes # 0.7 L (1.0-4.8) k/uL Sodium 128 L (137-145) mmol/L Chloride 97 L (98-107) mmol/L BUN 21 H (7-17) mg/dL Creatinine 1.67 H (0.52-1.04) mg/dL Glucose 395 H (74-99) mg/dL POC Glucose (mg/dL) 318 H (70-110) mg/dL Calcium 7.4 L (8.4-10.2) mg/dL 10/31/24 10/31/24 10/31/24 Range/Units 05:45 08:58 08:58 RBC 3.32 L (3.80-5.40) m/uL Hgb 10.6 L (11.4-16.0) gm/dL MCV 103.4 H (80.0-100.0) fL Plt Count (150-450) k/uL Lymphocytes # 0.9 L (1.0-4.8) k/uL Sodium 131 L (137-145) mmol/L Chloride (98-107) mmol/L BUN 22 H (7-17) mg/dL Creatinine 1.75 H (0.52-1.04) mg/dL Glucose 273 H (74-99) mg/dL POC Glucose (mg/dL) 406 H (70-110) mg/dL Calcium 7.6 L (8.4-10.2) mg/dL 10/31/24 Range/Units 10:11 RBC (3.80-5.40) m/uL Hgb (11.4-16.0) gm/dL MCV (80.0-100.0) fL Plt Count (150-450) k/uL Lymphocytes # (1.0-4.8) k/uL Sodium (137-145) mmol/L Chloride (98-107) mmol/L BUN (7-17) mg/dL Creatinine (0.52-1.04) mg/dL Glucose (74-99) mg/dL POC Glucose (mg/dL) 192 H (70-110) mg/dL Calcium (8.4-10.2) mg/dL Microbiology - Last 24 Hours (Table) 10/28/24 17:00 Urine Culture - Final Urine,Voided Stef crowus(grp d)
--- NOTE | 2024-10-31 12:50 | P.PN ---
Subjective Progress Note Date: 10/31/24 Principal diagnosis: Reason for follow-up is a urinary tract infection Patient is a 59-year-old female with a past medical history significant for coronary artery disease diabetes mellitus fibromyalgia reflux hypertension hyperlipidemia AR end-stage renal disease on dialysis still makes some urine he was recently admitted to this facility with emphysematous cystitis, urine culture positive for ESBL E. coli now presented back to the hospital chest pain also having some nausea vomiting suprapubic pain and hematuria. On today's evaluation that is 10/31/2024,the patient remains to be afebrile, patient is on room air not requiring supplemental oxygen and denies any shortness of breath no chest pain or cough.Patient denies having any nausea or vomiting, mention of abdominal and slightly decreased in intensity. Patient did have a count of 4.8, creat is 1.75 urine is not growing VRE Objective - Vital Signs Vital signs: Vital Signs Temp 97.6 F 10/31/24 08:00 Pulse 76 10/31/24 08:00 Resp 14 10/31/24 08:00 BP 105/57 10/31/24 08:00 Pulse Ox 96 10/31/24 04:00 FiO2 Intake & Output 10/30/24 10/31/24 10/31/24 18:59 06:59 18:59 Intake Total 118 1220 118 Output Total 4300 Balance 118 -3080 118 Weight 64.6 kg Intake: Oral 118 720 118 Hemodialysis 500 Output: Urine 200 Hemodialysis 2300 Hemodialysis Net Amount 1800 Other: Voiding Method Bedside Commode Bedside Commode Bedside Commode # Voids 1 # Bowel Movements 1 1 - Exam GENERAL DESCRIPTION: Middle-age female lying in bed in no distress RESPIRATORY SYSTEM: Unlabored breathing , decreased breath sounds at bases HEART: S1 S2 regular rate and rhythm , ABDOMEN: Soft , no tenderness EXTREMITIES: No edema feet - Labs CBC & Chem 7: 10/31/24 08:58 10/31/24 08:58 Labs: Abnormal Lab Results - Last 24 Hours (Table) 10/30/24 10/30/24 10/30/24 Range/Units 16:47 17:22 17:39 RBC (3.80-5.40) m/uL Hgb (11.4-16.0) gm/dL MCV (80.0-100.0) fL Plt Count (150-450) k/uL Lymphocytes # (1.0-4.8) k/uL Sodium (137-145) mmol/L Chloride (98-107) mmol/L BUN (7-17) mg/dL Creatinine (0.52-1.04) mg/dL Glucose (74-99) mg/dL POC Glucose (mg/dL) 59 L 58 L 59 L (70-110) mg/dL Calcium (8.4-10.2) mg/dL 10/30/24 10/30/24 10/30/24 Range/Units 17:52 18:11 20:20 RBC (3.80-5.40) m/uL Hgb (11.4-16.0) gm/dL MCV (80.0-100.0) fL Plt Count (150-450) k/uL Lymphocytes # (1.0-4.8) k/uL Sodium (137-145) mmol/L Chloride (98-107) mmol/L BUN (7-17) mg/dL Creatinine (0.52-1.04) mg/dL Glucose (74-99) mg/dL POC Glucose (mg/dL) 59 L 59 L 115 H (70-110) mg/dL Calcium (8.4-10.2) mg/dL 10/31/24 10/31/24 10/31/24 Range/Units 03:14 05:41 05:41 RBC 3.38 L (3.80-5.40) m/uL Hgb 11.1 L (11.4-16.0) gm/dL MCV 103.5 H (80.0-100.0) fL Plt Count 143 L (150-450) k/uL Lymphocytes # 0.7 L (1.0-4.8) k/uL Sodium 128 L (137-145) mmol/L Chloride 97 L (98-107) mmol/L BUN 21 H (7-17) mg/dL Creatinine 1.67 H (0.52-1.04) mg/dL Glucose 395 H (74-99) mg/dL POC Glucose (mg/dL) 318 H (70-110) mg/dL Calcium 7.4 L (8.4-10.2) mg/dL 10/31/24 10/31/24 10/31/24 Range/Units 05:45 08:58 08:58 RBC 3.32 L (3.80-5.40) m/uL Hgb 10.6 L (11.4-16.0) gm/dL MCV 103.4 H (80.0-100.0) fL Plt Count (150-450) k/uL Lymphocytes # 0.9 L (1.0-4.8) k/uL Sodium 131 L (137-145) mmol/L Chloride (98-107) mmol/L BUN 22 H (7-17) mg/dL Creatinine 1.75 H (0.52-1.04) mg/dL Glucose 273 H (74-99) mg/dL POC Glucose (mg/dL) 406 H (70-110) mg/dL Calcium 7.6 L (8.4-10.2) mg/dL 10/31/24 Range/Units 10:11 RBC (3.80-5.40) m/uL Hgb (11.4-16.0) gm/dL MCV (80.0-100.0) fL Plt Count (150-450) k/uL Lymphocytes # (1.0-4.8) k/uL Sodium (137-145) mmol/L Chloride (98-107) mmol/L BUN (7-17) mg/dL Creatinine (0.52-1.04) mg/dL Glucose (74-99) mg/dL POC Glucose (mg/dL) 192 H (70-110) mg/dL Calcium (8.4-10.2) mg/dL Microbiology - Last 24 Hours (Table) 10/28/24 17:00 Urine Culture - Final Urine,Voided Enterococ casseliflavus(grp d) Assessment and Plan (1) History of infection due to ESBL Escherichia coli Current Visit: Yes Status: Acute Code(s): Z86.19 - PERSONAL HISTORY OF OTHER INFECTIOUS AND PARASITIC DISEASES SNOMED Code(s): 689253045 (2) UTI (urinary tract infection) Current Visit: No Status: Acute Code(s): N39.0 - URINARY TRACT INFECTION, SITE NOT SPECIFIED SNOMED Code(s): 12748486 Plan: 1patient with symptoms of nausea and vomiting suprapubic discomfort burning urine along with some blood in the urine concerning for cystitis in this patient who recently did have recent ESBL E. coli emphysematous cystitis CT abdominal pelvis this admission did not show any emphysematous cystitis, colovesicular fistula cannot be excluded subsequently did have a CT without contrast with concern for uncomplicated colitis patient will benefit from CT of the pelvis with rectal contrast to evaluate for any colovesical fistula may be responsible for these recurrent UTIs 2-patient urine culture currently growing vancomycin-resistant Enterococcus we will discontinue Invanz start the patient on daptomycin and see clinical response Dictation was produced using [employer] dictation software. please excuse any grammatical, word or spelling errors. Time with Patient: Less than 30
--- NOTE | 2024-10-31 13:17 | P.CONS ---
History of Present Illness - Reason for Consult Consult date: 10/31/24 Acute on chronic diarrhea, readmission Requesting physician: Jessica Posadas - Chief Complaint Chest pain - History of Present Illness This is a pleasant 59-year-old female with multiple comorbidities including diabetes mellitus, fibromyalgia, coronary artery disease status post bypass, end-stage renal disease on hemodialysis, recent admission for UTI with emphysematous cystitis and current admission with urinary tract infection. Patient states she has been having diarrhea for last couple months duration increased loose stool anywhere from 5-7 on most days. States that diarrhea increased when she was started on antibiotics for her urinary tract infections. She denies any blood in her stool she does have lower pelvic discomfort. She had a CT abdomen and pelvis without contrast reporting diffuse anasarca and edema throughout the soft tissues cannot exclude acute uncomplicated colitis involving transverse colon, correlate clinically. She had 5 episodes of diar homa throughout the night. Last colonoscopy about 10 years ago. She is currently on IV antibiotics with IV ants. Had a C. difficile that was negative on 10/18/2024 no current sample. She was started on Questran yesterday and Imodium as needed. Review of Systems REVIEW OF SYSTEMS: CARDIOPULMONARY: No chest pain or shortness of breath. Gastrointestinal: Abdominal pain in lower abdomen/pelvis. No nausea or vomiting. No hematemesis, coffee-ground emesis. No rectal bleeding, or melena. Nonbloody diarrhea. GENITOURINARY: Patient is having dysuria and hematuria. MUSCULOSKELETAL: Reports normal range of motion., Chronic joint pain. SKIN: No rashes. No jaundice. ENDOCRINE: No chills, fevers. No excessive weight gain or loss. No polydipsia or polyuria. PSYCHIATRIC: Unremarkable. NEUROLOGY: No change in mental status. Denies dizziness, headache. ENT: Vision unremarkable. CONSTITUTIONAL: No recent weight loss. No fever, chills, night sweats. Past Medical History Past Medical History: Coronary Artery Disease (CAD), Chest Pain / Angina, Heart Failure, COPD, CVA/TIA, Diabetes Mellitus, Fibromyalgia, GERD/Reflux, Hyperlipidemia, Hypertension, Liver Disease, Myocardial Infarction ([place]), Osteoarthritis (OA), Renal Disease, Thyroid Disorder Additional Past Medical History / Comment(s): NEUROPATHY BILATERAL FEET, DDD NECK AND LOWER BACK, hiatal hernia, states no need for BP med anymore(gets orthostatic hypotension-has "medtronic heart loop monitor"), hx hepatitis as a kid, hx fractrured left wrist, hx stroke 03/03/22-problems with balance since. Last Myocardial Infarction Date:: 02/2024 History of Any Multi-Drug Resistant Organisms: ESBL, MRSA Year Discovered:: 09/13/24-ESBL; 2018-MRSA MDRO Source:: ESBL-urine; MRSA-stomach Past Surgical History: Adenoidectomy, Back Surgery, Bladder Surgery, Hysterectomy, Orthopedic Surgery, Tonsillectomy, Tubal Ligation Additional Past Surgical History / Comment(s): Debridement right foot, PICC line placed and later removed, bladder suspension, exploratory laparotomy, right great toe amputation, pins right in foot, cataracts removed, left wrist ORIF, loop heart monitor placed 02/2022. Past Anesthesia/Blood Transfusion Reactions: No Reported Reaction, Motion Sickness Additional Past Anesthesia/Blood Transfusion Reaction / Comm: . Type of Cardiac Device: Loop Past Psychological History: Anxiety, Depression Smoking Status: Former smoker Past Alcohol Use History: Occasional Past Drug Use History: Marijuana, Methamphetamine - Past Family History Sister(s) Family Medical History: Coronary Artery Disease (CAD) Mother Family Medical History: Pulmonary Embolus Additional Family Medical History / Comment(s): . Father Additional Family Medical History / Comment(s): at 26yrs old--accident at work Medications and Allergies Home Medications Medication Instructions Recorded Confirmed Type Levothyroxine Sodium [Synthroid] 175 mcg PO DAILY 02/02/22 10/27/24 History traZODone HCL [Desyrel] 50 mg PO HS 02/09/24 10/27/24 History Clopidogrel [Plavix] 75 mg PO DAILY tab 03/18/24 10/27/24 Rx Ipratropium-Albuterol Nebulize 3 ml INHALATION RT-Q2H PRN each 03/18/24 10/27/24 Rx [Duoneb 0.5 mg-3 mg/3 ml Soln] Pantoprazole [Protonix] 40 mg PO AC-BRKFST tab 03/18/24 10/27/24 Rx Acetaminophen Tab [Tylenol] 650 mg PO Q6H PRN 06/30/24 10/27/24 History Aspirin EC [Ecotrin Low Dose] 81 mg PO DAILY 06/30/24 10/27/24 History Atorvastatin [Lipitor] 40 mg PO HS 06/30/24 10/27/24 History Fluticasone/Umeclidin/Vilanter 1 puff INHALATION RT-DAILY 06/30/24 10/27/24 History [Trelegy Ellipta 100-62.5-25] Ipratropium [place] [Atrovent Hfa] 2 puff INHALATION RT-Q6H PRN 06/30/24 10/27/24 History Polyvinyl Alcohol/Povidone [Clear 1 drop BOTH EYES QID PRN 06/30/24 10/27/24 History Eyes Natural Tears Drop] Metoprolol Succinate (ER) [Toprol 25 mg PO DAILY #30 tab 07/05/24 10/27/24 Rx XL] Torsemide [Demadex] 40 mg PO DAILY #30 tab 07/05/24 10/27/24 Rx Insulin Aspart [NovoLOG Flexpen] See Protocol SQ AC-TID 08/26/24 10/27/24 History Loperamide [Imodium] 2 mg PO QID PRN cap 09/20/24 10/27/24 Rx Midodrine [ProAmatine] 5 mg PO BID PRN 10/18/24 10/27/24 History Sacubitril/Valsartan [Entresto 24 1 tab PO BID 10/18/24 10/27/24 History mg-26 mg Tablet] Nitrofurantoin Monohyd/M-Cryst 100 mg PO Q12HR #14 cap 10/25/24 10/27/24 Rx [Macrobid] Ondansetron Odt [Zofran Odt] 4 mg PO Q8HR PRN #10 tab 10/25/24 10/27/24 Rx Insulin Glargine,Hum.rec.anlog 6 units SQ DAILY@1100 10/27/24 10/27/24 History [Lantus Solostar Pen] Allergies Allergy/AdvReac Type Severity Reaction Status Date / Time Sulfa (Sulfonamide Allergy Rash/Hives Verified 10/27/24 13:24 Antibiotics) Physical Exam Vitals: Vital Signs Temp Pulse Pulse Resp BP BP Pulse Ox 10/31/24 04:00 98.3 F 74 14 112/68 96 10/31/24 00:00 97.7 F 75 16 102/61 94 L 10/30/24 19:50 97.3 F L 82 16 112/69 97 01/22/25 19:35 97.9 F 76 16 150/69 10/30/24 15:40 70 14 100/51 94 L 10/30/24 12:00 12 94 L 10/30/24 11:34 97.7 F 81 11 L 112/62 96 10/30/24 09:30 97.3 F L 81 16 107/58 94 L Intake and Output 10/30/24 10/31/24 10/31/24 22:59 06:59 14:59 Intake Total 1220 118 Output Total 4100 200 Balance -2880 -200 118 Intake: Oral 720 118 Hemodialysis 500 Output: Urine 200 Hemodialysis 2300 Hemodialysis Net Amount 1800 Other: Voiding Method Bedside Commode Bedside Commode # Voids 1 # Bowel Movements 1 1 1 Weight 64.6 kg General appearance: The patient is alert, oriented, appears in no acute distress. HET: Head is normocephalic and atraumatic. Conjunctiva pink. Sclera anicteric. Neck: Supple without lymphadenopathy. Trachea midline. Heart: Regular. Lungs: Equal expansion, normal respiratory effort. Abdomen: Soft, lower abdominal tenderness, nondistended. Skin: No rashes. No jaundice. Extremities: Normal skin color and turgor. No pedal edema. Neurological: No focal deficits. Alert and oriented x3. Results CBC & Chem 7: 10/31/24 08:58 10/31/24 08:58 Labs: Abnormal Lab Results - Last 24 Hours (Table) 10/30/24 10/30/24 10/30/24 Range/Units 11:32 16:47 17:22 RBC (3.80-5.40) m/uL Hgb (11.4-16.0) gm/dL MCV (80.0-100.0) fL Plt Count (150-450) k/uL Lymphocytes # (1.0-4.8) k/uL Sodium (137-145) mmol/L Chloride (98-107) mmol/L BUN (7-17) mg/dL Creatinine (0.52-1.04) mg/dL Glucose (74-99) mg/dL POC Glucose (mg/dL) 113 H 59 L 58 L (70-110) mg/dL Calcium (8.4-10.2) mg/dL 10/30/24 10/30/24 10/30/24 Range/Units 17:39 17:52 18:11 RBC (3.80-5.40) m/uL Hgb (11.4-16.0) gm/dL MCV (80.0-100.0) fL Plt Count (150-450) k/uL Lymphocytes # (1.0-4.8) k/uL Sodium (137-145) mmol/L Chloride (98-107) mmol/L BUN (7-17) mg/dL Creatinine (0.52-1.04) mg/dL Glucose (74-99) mg/dL POC Glucose (mg/dL) 59 L 59 L 59 L (70-110) mg/dL Calcium (8.4-10.2) mg/dL 10/30/24 10/31/24 10/31/24 Range/Units 20:20 03:14 05:41 RBC 3.38 L (3.80-5.40) m/uL Hgb 11.1 L (11.4-16.0) gm/dL MCV 103.5 H (80.0-100.0) fL Plt Count 143 L (150-450) k/uL Lymphocytes # 0.7 L (1.0-4.8) k/uL Sodium (137-145) mmol/L Chloride (98-107) mmol/L BUN (7-17) mg/dL Creatinine (0.52-1.04) mg/dL Glucose (74-99) mg/dL POC Glucose (mg/dL) 115 H 318 H (70-110) mg/dL Calcium (8.4-10.2) mg/dL 10/31/24 10/31/24 10/31/24 Range/Units 05:41 05:45 08:58 RBC 3.32 L (3.80-5.40) m/uL Hgb 10.6 L (11.4-16.0) gm/dL MCV 103.4 H (80.0-100.0) fL Plt Count (150-450) k/uL Lymphocytes # 0.9 L (1.0-4.8) k/uL Sodium 128 L (137-145) mmol/L Chloride 97 L (98-107) mmol/L BUN 21 H (7-17) mg/dL Creatinine 1.67 H (0.52-1.04) mg/dL Glucose 395 H (74-99) mg/dL POC Glucose (mg/dL) 406 H (70-110) mg/dL Calcium 7.4 L (8.4-10.2) mg/dL Microbiology - Last 24 Hours (Table) 10/28/24 17:00 Urine Culture - Final Urine,Voided Enterococ chadeliflavus(grp d) Comments: CT abdomen pelvis without contrast reports noncontrast exam which limits evaluation for enterovesical fistula. There is more prominent diffuse anasarca and edema throughout the soft tissues which also eliminates evaluation. No free air or contrast in the bladder lumen to diagnose fistula. Cannot exclude acute uncomplicated colitis involving the transverse colon, correlate clinically. Assessment and Plan (1) Diarrhea Narrative/Plan: 59-year-old female that states that she has chronic looser stools however over the last 1 to 2 months she has had increased loose watery stool nonbloody which started around the time that she was started on antibiotics. She was recently hospitalized in September for urinary tract infection on IV antibiotics and then Macrobid. She is now returned to the hospital with complaints of chest pain 4 days ago and admitted for hyponatremia, urinary tract infection with history of recent infection due to ESBL E. coli. She has been on antibiotics for the last month or more. Diarrhea likely secondary to antibiotic use. Last C. difficile stool sample was negative on 10/18/2024 however need to consider possible C. difficile colitis secondary to antibiotic use. Repeat C. difficile, continue Questran, will increase antidiarrheals once C. difficile stool sample is resulted. Current Visit: No Status: Acute Code(s): R19.7 - DIARRHEA, UNSPECIFIED SN OMED Code(s): 09703543 (2) Chest pain Current Visit: Yes Status: Acute Code(s): R07.9 - CHEST PAIN, UNSPECIFIED SNOMED Code(s): 87546109 (3) ESRD (end stage renal disease) on dialysis Current Visit: Yes Status: Acute Code(s): N18.6 - END STAGE RENAL DISEASE; Z99.2 - DEPENDENCE ON RENAL DIALYSIS SNOMED Code(s): 730399131 (4) Diabetes mellitus Current Visit: No Status: Acute Code(s): E11.9 - TYPE 2 DIABETES MELLITUS WITHOUT COMPLICATIONS SNOMED Code(s): 29721497 (5) UTI (urinary tract infection) Current Visit: No Status: Acute Code(s): N39.0 - URINARY TRACT INFECTION, SITE NOT SPECIFIED SNOMED Code(s): 97230820 Plan: 1. Continue symptomatic and supportive care 2. Continue Questran as ordered 3. Hold antidiarrheals until repeat C. difficile resulted 4. Stool C. difficile ordered 5. Diet as tolerated 6. Can consider probiotic 7. No plans on colonoscopy 8. Will reevaluate antidiarrheals once C. difficile stool sample collected and resulted Thank you for this consultation, we will continue to follow. Dr. Bibiana Sands I agree with the dictator's note, documented as a scribe by Queta Petersen.
--- NOTE | 2024-10-31 13:47 | P.CN ---
Psychiatric Consult - . Consult date: 10/31/24 Consult:: 10/31/24 13:15 IDENTIFYING DATA: This patient is a 59-year-old female, she is , she has 4 kids, she lives with her mother in a house, collect Social Security REASON FOR REFERRAL: Psychiatry was consulted for depression and noncompliance with hemodialysis HISTORY OF PRESENT ILLNESS: The patient presented to the hospital initially on 10/27 complaining of chest pain, was on antibiotics for UTI, was found to have DKA admitted medically. Patient apparently has several medical comorbidities including diabetes mellitus, coronary artery disease, recent CABG, end-stage renal disease on hemodialysis. Patient apparently has had several ER visits recently. Nurse taking care patient states that patient has been fairly cooperative no significant complaints has been taking her medications. Patient was seen today sitting in her chair agreeable to speak to abstract writer. She did appear to be frail and somewhat ill. She claims that she knows her name age current date and also location. She also had good memory recall, followed commands. She states that she was having chest pain for coming in the hospital and claims that she was feeling scared due to having a recent open heart surgery in February. States that she has been having a lot of frequent readmissions because she is not feeling well at home. Claims that no significant issues are happening at home between her and her mother or other problems. Claims that she is not receiving any help at home and has to take care of her medical issues, her daughter helps her with rides to dialysis. She claims that she cooks and cleans on her own. She claims that she goes to hemodialysis near [facility], claims that she goes Monday, claims that she has missed a couple of appointments due to not feeling well. Claims that she has been doing dialysis since March 2024. States that she is a bit depressed and frustrated with her medical conditions and her poor functioning. She does understand that she does need medical help and feels better afterwards, claims that she would "swell up" and possibly if she is to be refusing hemodialysis. Claims that her sleep has been about 3 to 4 hours a night, appetite has been on and off. At this time patient denies any suicidal or homical ideations, intent or plan. Patient denies any auditory, visual hallucinations and denies any paranoia or delusions. Patients admits to using no recreational drugs. Does claim that she had a history of using methamphetamines PAST PSYCHIATRIC HISTORY: Patient has a a history of depression. Patient denies being on any psychiatric medications however patient is currently on trazodone 50 mg nightly. Patient denies any previous psychiatric hospitalizations. Patient denies any psychiatric outpatient follow-up. He did claim that she had 1 suicide attempt in the past when she overdosed on insulin about 20 years ago. Past Medical History: Coronary Artery Disease (CAD), Chest Pain / Angina, Heart Failure, COPD, CVA/TIA, Diabetes Mellitus, Fibromyalgia, GERD/Reflux, Hyperlipidemia, Hypertension, Liver Disease, Myocardial Infarction ([place]), Osteoarthritis (OA), Renal Disease, Thyroid Disorder Additional Past Medical History / Comment(s): NEUROPATHY BILATERAL FEET, DDD NECK AND LOWER BACK, hiatal hernia, states no need for BP med anymore(gets orthostatic hypotension-has "medtronic heart loop monitor"), hx hepatitis as a kid, hx fractrured left wrist, hx stroke 03/03/22-problems with balance since. Last Myocardial Infarction Date:: 02/2024 History of Any Multi-Drug Resistant Organisms: ESBL, MRSA Date of last positivie culture/infection: 09/13/24-ESBL; 2018-MRSA MDRO Source:: ESBL-urine; MRSA-stomach Past Surgical History: Adenoidectomy, Back Surgery, Bladder Surgery, Hysterectomy, Orthopedic Surgery, Tonsillectomy, Tubal Ligation Additional Past Surgical History / Comment(s): Debridement right foot, PICC line placed and later removed, bladder suspension, exploratory laparotomy, right great toe amputation, pins right in foot, cataracts removed, left wrist ORIF, loop heart monitor placed 02/2022. Past Anesthesia/Blood Transfusion Reactions: No Reported Reaction, Motion Sickness Additional Past Anesthesia/Blood Transfusion Reaction / Comment(s): . Type of Cardiac Device: Loop Past Psychological History: Anxiety, Depression Smoking Status: Former smoker Past Alcohol Use History: Occasional Past Drug Use History: Marijuana, Methamphetamine ALLERGIES: as per EMR. CHEMICAL DEPENDENCY HISTORY: as per HPI. FAMILY PSYCHIATRIC/SUBSTANCE USE HISTORY: Is unsure of this SOCIAL HISTORY: Patient was born and raised in [facility]. Claims that she completed high school, states that she is she has 4 kids. Claims that she lives with her mother in a house. She collects Social Security. 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 Claims that she completed high school. States that she did go to [facility] in December 2023 for methamphetamine/drug charges. MENTAL STATUS EXAM: General Appearance: Patient appears to be thin, frail, stated age is alert, attempts to be cooperative. Patient appears to have fair hygiene and grooming wearing hospital gown with remittent eye contact. Behavior: Patient is calmly lying in bed without any agitated behavior. Attempts to cooperate Speech: Patient's speech is fluent and nonpressured. Slowed speech soft tone Mood/Affect: Patient reports their mood is "depressed a little", affect is congruent and constricted Suicidality/Homicidality: Patient denies having any suicidal or homicidal ideation intent or plan. Perceptions: Patient denies any visual hallucinations and denies any auditory hallucinations Though content/process: There is no evidence of any delusional thought content and thought process is linear and goal-directed. Snyder, poverty of content Memory and concentration: AOX3, grossly intact for the purposes of this session. Can spell "WORLD" backwards Judgment and insight: limited IMPRESSIONS: Depressive disorder unspecified PLAN: -At this time patient DOES NOT meet criteria for inpatient psychiatric admission. -Patient DOES NOT decision making capacity at this time and is able to reason through and communicate/appreciate the risks, benefits and alternatives to treatment. -Delirium precautions recommended with patient including - avoiding use of narcotics and AMBULANCE ASSISTANT sedatives, limit anticholinergic medications when possible, frequent re-orientation, minimize use of restraints, open window shades during the day and close them at night -Would recommend the following medication changes/additions: Can continue with trazodone 50 mg nightly for insomnia/mood as prescribed, added Zoloft 25 mg nightly for mood/anxiety. -clinical social worker to provide patient with outpatient mental health/psychiatry resources for appropriate follow up upon discharge -Continue medical management/treatment for underlying comorbidities. -I believe that patient could benefit from more assistance at home such as home health care and also possibly arranging for consistent transportation and assistance to the dialysis center -Communicated plan to patient's nurse -Psychiatry will sign off at this time -Please contact with any questions. 10/31/24 13:39
[2024-10-31] MEDS ORDERED: ZINC OXIDE PASTE (Z-GUARD) 1 APPLIC TOPICAL PRN (15:25)
--- NOTE | 2024-10-31 15:39 | P.PAINPG ---
Objective - Vital Signs Vital signs: Vital Signs Temp 97.6 F 10/31/24 08:00 Pulse 69 10/31/24 14:00 Resp 14 10/31/24 14:00 BP 108/57 10/31/24 12:00 Pulse Ox 96 10/31/24 12:00 FiO2 Intake & Output 10/30/24 10/31/24 10/31/24 18:59 06:59 18:59 Intake Total 118 1220 118 Output Total 4300 Balance 118 -3080 118 Weight 64.6 kg Intake: Oral 118 720 118 Hemodialysis 500 Output: Urine 200 Hemodialysis 2300 Hemodialysis Net Amount 1800 Other: Voiding Method Bedside Commode Bedside Commode Bedside Commode # Voids 1 # Bowel Movements 1 1 - Labs CBC & Chem 7: 10/31/24 08:58 10/31/24 08:58 Labs: Abnormal Lab Results - Last 24 Hours (Table) 10/30/24 10/30/24 10/30/24 Range/Units 16:47 17:22 17:39 RBC (3.80-5.40) m/uL Hgb (11.4-16.0) gm/dL MCV (80.0-100.0) fL Plt Count (150-450) k/uL Lymphocytes # (1.0-4.8) k/uL Sodium (137-145) mmol/L Chloride (98-107) mmol/L BUN (7-17) mg/dL Creatinine (0.52-1.04) mg/dL Glucose (74-99) mg/dL POC Glucose (mg/dL) 59 L 58 L 59 L (70-110) mg/dL Calcium (8.4-10.2) mg/dL 10/30/24 10/30/24 10/30/24 Range/Units 17:52 18:11 20:20 RBC (3.80-5.40) m/uL Hgb (11.4-16.0) gm/dL MCV (80.0-100.0) fL Plt Count (150-450) k/uL Lymphocytes # (1.0-4.8) k/uL Sodium (137-145) mmol/L Chloride (98-107) mmol/L BUN (7-17) mg/dL Creatinine (0.52-1.04) mg/dL Glucose (74-99) mg/dL POC Glucose (mg/dL) 59 L 59 L 115 H (70-110) mg/dL Calcium (8.4-10.2) mg/dL 10/31/24 10/31/24 10/31/24 Range/Units 03:14 05:41 05:41 RBC 3.38 L (3.80-5.40) m/uL Hgb 11.1 L (11.4-16.0) gm/dL MCV 103.5 H (80.0-100.0) fL Plt Count 143 L (150-450) k/uL Lymphocytes # 0.7 L (1.0-4.8) k/uL Sodium 128 L (137-145) mmol/L Chloride 97 L (98-107) mmol/L BUN 21 H (7-17) mg/dL Creatinine 1.67 H (0.52-1.04) mg/dL Glucose 395 H (74-99) mg/dL POC Glucose (mg/dL) 318 H (70-110) mg/dL Calcium 7.4 L (8.4-10.2) mg/dL 10/31/24 10/31/24 10/31/24 Range/Units 05:45 08:58 08:58 RBC 3.32 L (3.80-5.40) m/uL Hgb 10.6 L (11.4-16.0) gm/dL MCV 103.4 H (80.0-100.0) fL Plt Count (150-450) k/uL Lymphocytes # 0.9 L (1.0-4.8) k/uL Sodium 131 L (137-145) mmol/L Chloride (98-107) mmol/L BUN 22 H (7-17) mg/dL Creatinine 1.75 H (0.52-1.04) mg/dL Glucose 273 H (74-99) mg/dL POC Glucose (mg/dL) 406 H (70-110) mg/dL Calcium 7.6 L (8.4-10.2) mg/dL 10/31/24 Range/Units 10:11 RBC (3.80-5.40) m/uL Hgb (11.4-16.0) gm/dL MCV (80.0-100.0) fL Plt Count (150-450) k/uL Lymphocytes # (1.0-4.8) k/uL Sodium (137-145) mmol/L Chloride (98-107) mmol/L BUN (7-17) mg/dL Creatinine (0.52-1.04) mg/dL Glucose (74-99) mg/dL POC Glucose (mg/dL) 192 H (70-110) mg/dL Calcium (8.4-10.2) mg/dL Microbiology - Last 24 Hours (Table) 10/28/24 17:00 Urine Culture - Final Urine,Voided Enterococ casseliflavus(grp d) PQRS Measure Charge Sheet Comment: HISTORY OF PRESENT ILLNESS: A 59 yr old female as a referral from Dr Jessica Posadas presents today w severe and chronic LBP, Hx of L Wrist ORIF Fibromyalgia for evaluation. Pt states pain level is provoked at 6 /10 in intensity, constant, generalized, predominantly axial, achy in character without shooting pain . Pain has no provocative factors. Pain is alleviated by medications ([place] 7.5/325mg q6h prn, MS 2mg IVP q6h prn, Tyl, ASA), repositioning and rest . She is currently asleep after receiving MS 2mg approximately 4 hrs ago. Per nurse, she has not requested [place] today. PMH: OA, CAD, Angina, Heart Failure, COPD, CVA, NIDDM II, Fibromyalgia, GERD, Hyperlipidemia, HTN, Liver Disease, MO (2023), ESRD, Hypothyroidism, HH, MDD/ Anxiety PSH: Adenoidectomy, Back Surgery, L Wrist ORIF, Bladder Suspension, Hyste rectomy, Exploratory Laparatomy, Cataract Extraction, Tonsillectomy, Tubal Ligation, R Foot Debridement, R Great Toe Amputation, PICC Line SH: Former tobacco user, Occ ETOH use, Hx of Cannabis and Methamphetamine use FH: Non contributory All: See list Meds: See list REVIEW OF ORGAN SYSTEMS: CONSTITUTIONAL: No fevers or chills. No recent weight loss. NEUROLOGICAL: + numbness and tingling along the distal extremities. No seizure disorders or headaches. MUSCULOSKELETAL: + pain PSYCHIATRIC: Denies current depression or suicidal thoughts. Physical Examinations : Constitutional : Cooperative , not in acute distress . Neurologic : Cranial nerve II to XII intact. No focal neurological deficits. Psychiatric : alert & oriented x 3. Matching mood & appropriate affect. Judgment & insight intact. Musculoskeletal : Cervical Spine Motor strength in the deltoid and biceps: Normal right side. Normal Left side Motor strength biceps and the wrist extensors: Normal right side . Normal left side Motor strength in the triceps muscle: Normal right side. Normal left side Deep tendon reflexes: Normal at the biceps. Normal at Brachioradialis. Normal at triceps Vertebral body tenderness to deep palpation over Cervical facet loading test: positive bilaterally Spurling test: positive bilaterally Neck distraction test: positive bilaterally Jeri sign: positive bilaterally Lumbar spine Motor strength lower extremities ,thigh and legs 5/5 Right side , 5/5 Left side Deep tendon reflexes : Normal Knee Jerk. Normal Ankle Jerk Vertebral body tenderness over Zee Test positive Lumbar facet Loading Test: positive Right / positive Left Range of motion of the lumbar spine Flexion 30 degrees, extension 10 degrees Straight Leg Raise test: Left/ Right positive at degrees Cori test: positive right / positive left. Severe tenderness over the Sacroiliac j oint on the Right / Left sides Gaenslen test: positive bilaterally Seated flexion test: positive bilaterally. Sacral spine : Severe tenderness over the Sacroiliac joint: right side / left side Range of motion: Flexion of the lumbar spine <60 degrees Range of motion: Extension of the lumbar spine <20 degrees Gaenslen's Test positive Cori test: positive right side / l eft side Thigh Thrust Test Sacral Thrust Test Assessment/ Plan : L Wrist ORIF, Lumbago, Fibromyalgia Recommendation of medication management. No changes at this time. Notified nursing that if pt requests additional medications to contact me at the pain clinic for additional management. All questions answered. I have spent greater than 30 minutes on patient care today. Dr Winters was available by phone for the evaluation of this patient. The time was used to review the medical records including relevant urine studies and Prescription history (MAPs), review of the available imaging, evaluation and examination of the patient, coordination of care with the medical staff and if applicable referring physicians, as well as creation of the medical record - Pain Location Back Non-Pharmacological Interventions: Inactivity, Position/Reposition Pharmacological Interventions: Discuss Pain Med Options, PRN Medication PQRS Narrative: Smoking Status Current every day smoker Narcotic Agreement Date Signed 05/11/16 Blood Pressure [Left Arm] 108/57 Blood Pressure [Right Arm] 112/69 Blood Pressure 117/66 Pain Intensity [Back] 0 Pain Intensity 6 Pain Scale Used Numeric (1 - 10) Scale Used Numeric (1 - 10) Hx Alcohol Use (MH) No Home Medications: Ambulatory Orders Levothyroxine Sodium [Synthroid] 175 mcg PO DAILY 02/02/22 traZODone HCL [Desyrel] 50 mg PO HS 02/09/24 Clopidogrel [Plavix] 75 mg PO DAILY tab 03/18/24 Ipratropium-Albuterol Nebulize [Duoneb 0.5 mg-3 mg/3 ml Soln] 3 ml INHALATION RT-Q2H PRN each 03/18/24 Pantoprazole [Protonix] 40 mg PO AC-BRKFST tab 03/18/24 Acetaminophen Tab [Tylenol] 650 mg PO Q6H PRN 06/30/24 Aspirin EC [Ecotrin Low Dose] 81 mg PO DAILY 06/30/24 Atorvastatin [Lipitor] 40 mg PO HS 06/30/24 Fluticasone/Umeclidin/Vilanter [Trelegy Ellipta 100-62.5-25] 1 puff INHALATION RT-DAILY 06/30/24 Ipratropium [place] [Atrovent Hfa] 2 puff INHALATION RT-Q6H PRN 06/30/24 Polyvinyl Alcohol/Povidone [Clear Eyes Natural Tears Drop] 1 drop BOTH EYES QID PRN 06/30/24 Metoprolol Succinate (ER) [Toprol XL] 25 mg PO DAILY #30 tab 07/05/24 Torsemide [Demadex] 40 mg PO DAILY #30 tab 07/05/24 Insulin Aspart [NovoLOG Flexpen] See Protocol SQ AC-TID 08/26/24 Loperamide [Imodium] 2 mg PO QID PRN cap 09/20/24 Midodrine [ProAmatine] 5 mg PO BID PRN 10/18/24 Sacubitril/Valsartan [Entresto 24 mg-26 mg Tablet] 1 tab PO BID 10/18/24 Nitrofurantoin Monohyd/M-Cryst [Macrobid] 100 mg PO Q12HR #14 cap 10/25/24 Ondansetron Odt [Zofran Odt] 4 mg PO Q8HR PRN #10 tab 10/25/24 Insulin Glargine,Hum.rec.anlog [Lantus Solostar Pen] 6 units SQ DAILY@1100 10/27/24 Controlled Substance Measures - Controlled Substance Measures Is patient prescribed a controlled substance at discharge?: No
[2024-10-31 16:37] LABS: Glucose,Whole Blood 33 mg/dL (70-110)
[2024-10-31 16:37] LABS: Glucose,Whole Blood 34 mg/dL (70-110)
--- NOTE | 2024-10-31 16:43 | P.PN ---
Subjective Patient is seen for follow-up for end-stage renal disease. Scheduled for hemodialysis in a.m. No significant complaints today. Objective - Vital Signs Vital signs: Vital Signs Temp 97.6 F 10/31/24 08:00 Pulse 77 10/31/24 16:00 Resp 14 10/31/24 14:00 BP 104/55 10/31/24 16:00 Pulse Ox 97 10/31/24 16:00 FiO2 Intake & Output 10/30/24 10/31/24 10/31/24 18:59 06:59 18:59 Intake Total 118 1220 358 Output Total 4300 Balance 118 -3080 358 Weight 64.6 kg Intake: Oral 118 720 358 Hemodialysis 500 Output: Urine 200 Hemodialysis 2300 Hemodialysis Net Amount 1800 Other: Voiding Method Bedside Commode Bedside Commode Bedside Commode # Voids 1 # Bowel Movements 1 1 - Exam Patient is awake comfortable, alert oriented x 3. Examination of the heart S1 and S2 Examination of the lungs bilateral breath sounds are heard Abdomen is soft mild tenderness noted in the lower abdomen Examination of lower extremities shows edema 1+ bilaterally mostly chronic. 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 exam grossly intact - Labs CBC & Chem 7: 10/31/24 08:58 10/31/24 08:58 Labs: Abnormal Lab Results - Last 24 Hours (Table) 10/30/24 10/30/24 10/30/24 Range/Units 16:47 17:22 17:39 RBC (3.80-5.40) m/uL Hgb (11.4-16.0) gm/dL MCV (80.0-100.0) fL Plt Count (150-450) k/uL Lymphocytes # (1.0-4.8) k/uL Sodium (137-145) mmol/L Chloride (98-107) mmol/L BUN (7-17) mg/dL Creatinine (0.52-1.04) mg/dL Glucose (74-99) mg/dL POC Glucose (mg/dL) 59 L 58 L 59 L (70-110) mg/dL Calcium (8.4-10.2) mg/dL 10/30/24 10/30/24 10/30/24 Range/Units 17:52 18:11 20:20 RBC (3.80-5.40) m/uL Hgb (11.4-16.0) gm/dL MCV (80.0-100.0) fL Plt Count (150-450) k/uL Lymphocytes # (1.0-4.8) k/uL Sodium (137-145) mmol/L Chloride (98-107) mmol/L BUN (7-17) mg/dL Creatinine (0.52-1.04) mg/dL Glucose (74-99) mg/dL POC Glucose (mg/dL) 59 L 59 L 115 H (70-110) mg/dL Calcium (8.4-10.2) mg/dL 10/31/24 10/31/24 10/31/24 Range/Units 03:14 05:41 05:41 RBC 3.38 L (3.80-5.40) m/uL Hgb 11.1 L (11.4-16.0) gm/dL MCV 103.5 H (80.0-100.0) fL Plt Count 143 L (150-450) k/uL Lymphocytes # 0.7 L (1.0-4.8) k/uL Sodium 128 L (137-145) mmol/L Chloride 97 L (98-107) mmol/L BUN 21 H (7-17) mg/dL Creatinine 1.67 H (0.52-1.04) mg/dL Glucose 395 H (74-99) mg/dL POC Glucose (mg/dL) 318 H (70-110) mg/dL Calcium 7.4 L (8.4-10.2) mg/dL 10/31/24 10/31/24 10/31/24 Range/Units 05:45 08:58 08:58 RBC 3.32 L (3.80-5.40) m/uL Hgb 10.6 L (11.4-16.0) gm/dL MCV 103.4 H (80.0-100.0) fL Plt Count (150-450) k/uL Lymphocytes # 0.9 L (1.0-4.8) k/uL Sodium 131 L (137-145) mmol/L Chloride (98-107) mmol/L BUN 22 H (7-17) mg/dL Creatinine 1.75 H (0.52-1.04) mg/dL Glucose 273 H (74-99) mg/dL POC Glucose (mg/dL) 406 H (70-110) mg/dL Calcium 7.6 L (8.4-10.2) mg/dL 10/31/24 10/31/24 10/31/24 Range/Units 10:11 16:34 16:35 RBC (3.80-5.40) m/uL Hgb (11.4-16.0) gm/dL MCV (80.0-100.0) fL Plt Count (150-450) k/uL Lymphocytes # (1.0-4.8) k/uL Sodium (137-145) mmol/L Chloride (98-107) mmol/L BUN (7-17) mg/dL Creatinine (0.52-1.04) mg/dL Glucose (74-99) mg/dL POC Glucose (mg/dL) 192 H 34 L* 33 L* (70-110) mg/dL Calcium (8.4-10.2) mg/dL Microbiology - Last 24 Hours (Table) 10/28/24 17:00 Urine Culture - Final Urine,Voided Enterococ casseliflavus(grp d) Assessment and Plan Assessment: 1. End-stage renal disease maintained on hemodialysis on Monday schedule. 2. Cardiomyopathy ejection fraction 15 to 20%. 3. Diabetes mellitus. 4. Coronary artery disease status post CABG. 6. Volume overload. 7. Hypervolemic hyponatremia. 8. ESBL emphysematous cystitis on antibiotics. Plan: Hemodialysis in a.m. Continue Demadex Recommend decrease pain medications.
[2024-10-31 16:57] LABS: Glucose,Whole Blood 33 mg/dL (70-110)
[2024-10-31 17:14] LABS: Glucose,Whole Blood 41 mg/dL (70-110)
[2024-10-31 17:37] LABS: Glucose,Whole Blood 88 mg/dL (70-110)
[2024-10-31 19:53] LABS: Glucose,Whole Blood 113 mg/dL (70-110)
[2024-10-31] MEDS: SERTRALINE 25 MG TAB PO SCH (20:12)
[2024-11-01 02:07] LABS: Glucose,Whole Blood 281 mg/dL (70-110)
[2024-11-01 02:07] LABS: Glucose,Whole Blood 318 mg/dL (70-110)
[2024-11-01 05:58] LABS: Glucose,Whole Blood 346 mg/dL (70-110)
[2024-11-01 05:58] LABS: Glucose,Whole Blood 315 mg/dL (70-110)
[2024-11-01 06:05] LABS: Basophils % (A) 0 %; Eosinophils # (A) 0.2 k/uL (0-0.7); Eosinophils % (A) 4 %; HGB 10.4 gm/dL (11.4-16.0); Hypochromasia Moderate; Lymphocytes % (A) 22 %; MCH 32.3 pg (25.0-35.0); MCHC 31.6 g/dL (31.0-37.0); MCV 102.3 fL (80.0-100.0); Macrocytosis Slight; Mean Platelet Volume 7.9; Monocytes # (A) 0.3 k/uL (0-1.0); Monocytes % (A) 7 %; Neutrophils # (A) 2.7 k/uL (1.3-7.7); Neutrophils % (A) 64 %; Platelet Count 139 k/uL (150-450); RBC 3.22 m/uL (3.80-5.40); RDW 14.6 % (11.5-15.5); WBC 4.3 k/uL (3.8-10.6)
[2024-11-01 06:34] LABS: African American GFR (CKD) 30 (>60 ml/min/1.73 sqM); Anion Gap 5 mmol/L; Blood Urea Nitrogen 27 mg/dL (7-17); Calcium 7.7 mg/dL (8.4-10.2); Carbon Dioxide 23 mmol/L (22-30); Chloride 100 mmol/L (98-107); Glucose 305 mg/dL (74-99); Non-African American GFR(CKD) 26 (>60 ml/min/1.73 sqM); Potassium 4.8 mmol/L (3.5-5.1); Sodium 128 mmol/L (137-145)
--- NOTE | 2024-11-01 09:16 | CT ---
EXAMINATION TYPE: CT abdomen pelvis wo con DATE OF EXAM: 11/01/2024 8:55 AM COMPARISON: None. CLINICAL INDICATION: Female, 59 years old with history of RECTAL CONTRAST ONLY. evaluate for fistula, evaluate for enterovesical fistula TECHNIQUE: Axial images were obtained from above the diaphragm to the pubic rami in the axial plane a t 5 mm thick sections. Reconstructed images are reviewed on the computer in the coronal plane. CONTRAST: mL of . Study performed without Oral Contrast DLP: 440.8 mGycm, Automated exposure control for dose reduction was used. FINDINGS: Limited CT sections are obtained the lung bases. Small bilateral pleural effusions are present. Some minimal compressive atelectasis may be adjacent on the left.. CT ABDOMEN: Diffuse soft tissue edema is present. Minimal free fluid is within abdomen Liver: Normal Spleen: Normal Pancreas: Not well visualized. Adrenal glands: The adrenal glands are normal. Gallbladder: Not identified. Kidneys: No masses are evident. No hydronephrosis is present. No cysts are present. No renal stone s are evident. Aorta: Vascular calcification is within the aorta. Inferior vena cava: Normal. CT PELVIS: There is mild prominence of small bowel loops. Scattered small amounts of air within small bowel loop s. The colon contains a small amount of air and appears nondilated. No suspicious changes to suggest acute diverticulitis. Rectal contrast is present however patient was having difficulty holding the co ntrast which only extends to the distal sigmoid colon. Enterovesical fistula would not likely be visu alized. No free air within the urinary bladder or adjacent inflammatory change the bladder is identif ied Appendix: Normal as visualized. Urinary bladder: Normal. No contrast is present within the urinary bladder. Genitourinary structures: Uterus and ovaries are not identified. Osseous structures: No suspicious lytic or sclerotic lesions. IMPRESSION: 1. Limited rectal contrast was able to be retained in the patient and evaluation for enterovesical f istula is suboptimal. No obvious secondary changes to suggest fistula identified by CT. 2. Mild free fluid within the abdomen. 3. Small bilateral pleural effusions. [facility], , 11/01/2024 9:14 AM
[2024-11-01] MEDS: LACTOBACILLUS ACIDOPHILUS/PECT 1 EACH CAPSULE PO SCH (09:23)
--- NOTE | 2024-11-01 10:28 | P.PN ---
Subjective Progress Note Date: 11/01/24 Principal diagnosis: Diarrhea This is a pleasant 59-year-old female with multiple comorbidities including diabetes mellitus, fibromyalgia, coronary artery disease status post bypass, end-stage renal disease on hemodialysis, recent admission for UTI with emphysematous cystitis and current admission with urinary tract infection. Patient states she has been having diarrhea for last couple months duration increased loose stool anywhere from 5-7 on most days. States that diarrhea increased when she was started on antibiotics for her urinary tract infections. She denies any blood in her stool she does have lower pelvic discomfort. She had a CT abdomen and pelvis without contrast reporting diffuse anasarca and edema throughout the soft tissues cannot exclude acute uncomplicated colitis involving transverse colon, correlate clinically. She had 5 episodes of diarrhea throughout the night. Last colonoscopy about 10 years ago. She is currently on IV antibiotics with IV ants. Had a C. difficile that was negative on 10/18/2024 no current sample. She was started on Questran yesterday and Imodium as needed. 11/01/2024 Patient seen and examined today as a follow-up. States diarrhea is improving. Only 2 episodes through the night. States that there more formed. No nausea or vomiting. Patient remains afebrile. Stool C. difficile negative. Objective - Vital Signs Vital signs: Vital Signs Temp 98.0 F 11/01/24 04:00 Pulse 74 11/01/24 04:00 Resp 15 11/01/24 04:00 BP 107/57 11/01/24 04:00 Pulse Ox 96 11/01/24 04:00 FiO2 Intake & Output 10/31/24 10/31/24 11/01/24 06:59 18:59 06:59 Intake Total 1220 594 Output Total 4300 200 Balance -3080 594 -200 Weight 64.6 kg 64.6 kg Intake: Oral 720 594 Hemodialysis 500 Output: Urine 200 200 Hemodialysis 2300 Hemodialysis Net Amount 1800 Other: Voiding Method Bedside Commode Bedside Commode Bedside Commode # Voids 1 # Bowel Movements 1 1 1 - Exam General appearance: The patient is alert, oriented, appears in no acute distress. HET: Head is normocephalic and atraumatic. Conjunctiva pink. Sclera anicteric. Neck: Supple without lymphadenopathy. Abdomen: Soft, nontende some lower abdominal tenderness, nondistended. Extremities: Normal skin color and turgor. No pedal edema Skin: No rashes, no jaundice Neurological: No focal deficits. Alert and oriented. - Labs CBC & Chem 7: 11/01/24 05:46 11/01/24 05:46 Labs: Abnormal Lab Results - Last 24 Hours (Table) 10/31/24 10/31/24 10/31/24 Range/Units 08:58 08:58 10:11 RBC 3.32 L (3.80-5.40) m/uL Hgb 10.6 L (11.4-16.0) gm/dL Hct (34.0-46.0) % MCV 103.4 H (80.0-100.0) fL Plt Count (150-450) k/uL Lymphocytes # 0.9 L (1.0-4.8) k/uL Sodium 131 L (137-145) mmol/L BUN 22 H (7-17) mg/dL Creatinine 1.75 H (0.52-1.04) mg/dL Glucose 273 H (74-99) mg/dL POC Glucose (mg/dL) 192 H (70-110) mg/dL Calcium 7.6 L (8.4-10.2) mg/dL 10/31/24 10/31/24 10/31/24 Range/Units 16:34 16:35 16:55 RBC (3.80-5.40) m/uL Hgb (11.4-16.0) gm/dL Hct (34.0-46.0) % MCV (80.0-100.0) fL Plt Count (150-450) k/uL Lymphocytes # (1.0-4.8) k/uL Sodium (137-145) mmol/L BUN (7-17) mg/dL Creatinine (0.52-1.04) mg/dL Glucose (74-99) mg/dL POC Glucose (mg/dL) 34 L* 33 L* 33 L* (70-110) mg/dL Calcium (8.4-10.2) mg/dL 10/31/24 10/31/24 11/01/24 Range/Units 17:13 19:51 02:02 RBC (3.80-5.40) m/uL Hgb (11.4-16.0) gm/dL Hct (34.0-46.0) % MCV (80.0-100.0) fL Plt Count (150-450) k/uL Lymphocytes # (1.0-4.8) k/uL Sodium (137-145) mmol/L BUN (7-17) mg/dL Creatinine (0.52-1.04) mg/dL Glucose (74-99) mg/dL POC Glucose (mg/dL) 41 L* 113 H 318 H (70-110) mg/dL Calcium (8.4-10.2) mg/dL 11/01/24 11/01/24 11/01/24 Range/Units 02:04 05:46 05:46 RBC 3.22 L (3.80-5.40) m/uL Hgb 10.4 L (11.4-16.0) gm/dL Hct 33.0 L (34.0-46.0) % MCV 102.3 H (80.0-100.0) fL Plt Count 139 L (150-450) k/uL Lymphocytes # (1.0-4.8) k/uL Sodium 128 L (137-145) mmol/L BUN 27 H (7-17) mg/dL Creatinine 2.05 H (0.52-1.04) mg/dL Glucose 305 H (74-99) mg/dL POC Glucose (mg/dL) 281 H (70-110) mg/dL Calcium 7.7 L (8.4-10.2) mg/dL 11/01/24 11/01/24 Range/Units 05:54 05:56 RBC (3.80-5.40) m/uL Hgb (11.4-16.0) gm/dL Hct (34.0-46.0) % MCV (80.0-100.0) fL Plt Count (150-450) k/uL Lymphocytes # (1.0-4.8) k/uL Sodium (137-145) mmol/L BUN (7-17) mg/dL Creatinine (0.52-1.04) mg/dL Glucose (74-99) mg/dL POC Glucose (mg/dL) 346 H 315 H (70-110) mg/dL Calcium (8.4-10.2) mg/dL Assessment and Plan (1) Diarrhea Narrative/Plan: 59-year-old female that states that she has chronic looser stools however over the last 1 to 2 months she has had increased loose watery stool nonbloody which started around the time that she was started on antibiotics. She was recently hospitalized in September for urinary tract infection on IV antibiotics and then Macrobid. She is now returned to the hospital with complaints of chest pain 4 days ago and admitted for hyponatremia, urinary tract infection with history of recent infection due to ESBL E. coli. She has been on antibiotics for the last month or more. Diarrhea likely secondary to antibiotic use. Last C. difficile stool sample was negative on 10/18/2024 however need to consider possible C. difficile colitis secondary to antibiotic use. Repeat C. difficile, continue Questran, will increase antidiarrheals once C. difficile stool sample is negative however patient symptoms are improving. Continue with Questran and Imodium as needed. Again diarrhea likely secondary to antibiotic use. Current Visit: No Status: Acute Code(s): R19.7 - DIARRHEA, UNSPECIFIED SNOMED Code(s): 91985772 (2) Chest pain Current Visit: Yes Status: Acute Code(s): R07.9 - CHEST PAIN, UNSPECIFIED SNOMED Code(s): 61304988 (3) ESRD (end stage renal disease) on dialysis Current Visit: Yes Status: Acute Code(s): N18.6 - END STAGE RENAL DISEASE; Z99.2 - DEPENDENCE ON RENAL DIALYSIS SNOMED Code(s): 053289301 (4) Diabetes mellitus Current Visit: No Status: Acute Code(s): E11.9 - TYPE 2 DIABETES MELLITUS WITHOUT COMPLICATIONS SNOMED Code(s): 86588458 (5) UTI (urinary tract infection) Current Visit: No Status: Acute Code(s): N39.0 - URINARY TRACT INFECTION, SITE NOT SPECIFIED SNOMED Code(s): 43856590 Plan: 1. Continue symptomatic and supportive care 2. Continue Questran as ordered 3. May continue Imodium as needed 4. Stool C. difficile ordered and reviewed 5. Diet as tolerated 6. Can continue probiotic 7. No plans on colonoscopy Thank you for this consultation, if diarrhea continues after antibiotic use can follow-up with gastroenterology. Otherwise patient is cleared from astroenterology for discharge. We will sign off at this time. Dr. Bibiana Sands I agree with the dictator's note, documented as a scribe by Queta Petersen.
[2024-11-01 11:40] LABS: Glucose,Whole Blood 89 mg/dL (70-110)
--- NOTE | 2024-11-01 13:53 | P.PN ---
Subjective Progress Note Date: 11/01/24 Hospital Course: 59-year-old female with PMH of CAD with ischemic cardiomyopathy with EF of 15 to 20%, COPD, ESRD on dialysis MWF via R chest catheter, diabetes mellitus, fibromyalgia, GERD, hyperlipidemia, hypertension, and osteoarthritis presented to the emergency department for chest pain. Started on 9:30AM, woke her up from sleep. Pain is intermittent, pressure like in nature, left sided and radiates to the right arm and neck. Pain is associated with shortness of breath. No changes with movement or deep inspiration. Patient reports missing her Wed and Fri dialysis session due to diarrhea (ongoing for the past 2 months). She reports poor appetite and despite not eating much her blood glucose has been running high. She reports intermittent nausea and vomiting. Previously admitted from 09/13-09/20 for treatment of emphysematous cystitis with micorperforations, Urology recommended evaluation for enterovesical fistula at that time but patient refused. She was discharged to SNF on Ertapenem for 10 days. In the ED she underwent extensive evaluation: BP 139/66, HR 85, RR 20, T 97.4F, 100% on 2L NC. CBC, Coag panel, CMP significant for RBC 3.4, Hg 10.9, MCV 106.3, Na 126, Cl 90, bicarb 9, BUN 56, Cr 3.32, glu 681, Ca 8.2, alk phos 202, alb 3. Lipase 22. Trop 0.03. Acetone positive. ABG pH 7.31, pCO2 31. EKG sinus rhythm with interventricular conduction delay. CXR no acute process. Patient is admitted for further workup and management. Started on insulin drip and D5 1/2 NS with KCl IV for DKA. DKA resolved and she was transitioned to ISS. Troponins trended 0.03, 0.025, 0.024 and ACS was ruled out. Cardiology consulted, recommended Echo. Patient with complaints of dysuria, started on Ertapenem for h/o ESBL and ID consulted. CT AP with PO contrast ordered given history of emphysematous cystitis with microperforations concerning for enterovesical fistula which showed diffucse anasarca and edema, no free air in the bladder. TTE on 10/29 showed EF 25 to 30% with severely increased left ventricular diastolic volume, left ventricular systolic volume, inferoseptal dyskinesis, mild pulmonary hypertension RVSP 35 CT abdomen with rectal contrast: More prominent diffuse anasarca and edema, no free air or contrast in the bladder lumen to diagnose fistula, cannot exclude ac [place] uncomplicated colitis. Repeat CT abdomen with rectal contrast done 11/01, limited rectal contrast was able to be retained in the patient and evaluation for enterovesical fistula is suboptimal, no obvious secondary changes to suggest fistula. Readmission prevention meeting 10/30:. Patient recurrently misses her Monday hemodialysis, sometimes monday hemodialysis, hemodialysis transportation is arranged. Due to ongoing diarrhea, CT findings suggestive of possible colitis and transverse colon, GI consulted. Cdiff ordered, negative, patient can continue Imodium, Questran, if diarrhea continues after antibiotic use can follow-up with gastroenterology, otherwise cleared from GI for discharge. Patient plans to get IV and oral opiates during her admissions, she does have history of methamphetamine abuse, concern for opioid use disorder, pain medicine consulted. No changes recommended. Psychiatry consulted to evaluate for depression possibly contributing to noncompliance. Added Zoloft 25 nightly, outpatient mental health/psychiatry Pertinent Imaging: As discussed above Subjective: No significant changes, continues to have diarrhea, although overnight was better Pertinent positives and negatives as discussed above, a complete review of systems was performed and all other systems are negative. Vitals Signs Reviewed. General: [nontoxic], [no distress], [appears at stated age], chronically ill appearing Derm: [warm], [dry] Head: [atraumatic], [normocephalic], [symmetric] Eyes: [EOMI], [no lid lag], [anicteric sclera] Mouth: [no lip lesion], [mucus membranes moist] Cardiovascular: [S1S2 reg], [no murmur] Lungs: [CTA bilateral], [no rhonchi, no rales] , [no accessory muscle use] Abdominal: [soft], [ nontender to palpation], [no guarding], [no appreciable organomegaly] Ext: [no gross muscle atrophy], [no edema], [no contractures] Neuro: [ CN II-XI grossly intact], [no focal neuro deficits] Psych: [Alert], [oriented], [appropriate affect] Data Reviewed Today: Pertinent Labs: WBC 4.3, hemoglobin 10.4, platelet 139, sodium 128, C. difficile negative Assessment and Plan: Chest pain, resolved. History of CAD with stenting, history of CABG, ACS ruled out CHF with EF 25 to 30%, not in acute exacerbation -Cardiology following, continue current medications, no need of invasive procedures, needs to be evaluated for ICD implantation ESRD on HD, -Continue HD per nephrology, hx of ESBL E. coli emphysematous cystitis UTI, enterococ casseliflavus Acute on chronic diarrhea Possible colitis -Continue Invanz, ID following, follow-up final blood cultures -Patient apparently did not initially rectal contrast for the CT, she was showing possible colitis -GI consulted. . Cdiff ordered, negative, patient can continue Imodium, Questran, if diarrhea continues after antibiotic use can follow-up with gastroenterology, otherwise cleared from GI for discharge. -Repeat CT abdomen with rectal contrast done 11/01, limited rectal contrast was able to be retained in the patient and evaluation for enterovesical fistula is suboptimal, no obvious secondary changes to suggest fistula. History of methamphetamine use, concern for opioid use disorder, consulted pain- no changes Noncompliance with HD, concern for depression: Consulted psychiatry COPD not in exacerbation: Continue DuoNebs, Symbicort, Spiriva GERD: Continue Protonix Hypothyroidism: Continue Synthroid 176 Hyperlipidemia: Continue Lipitor Hypertension: Metoprolol, torsemide, Entresto Type II DM with hyperglycemia Basal bolus with Levemir 9 units and mealtime 3 units, continue SSI [Resolved:] DKA DVT ppx: Heparin Code status: Code Anticipated discharge place: Home, declines rehab Anticipated discharge time: Pending clinical stability Objective - Vital Signs Vital signs: Vital Signs Temp 97.7 F 11/01/24 11:30 Pulse 75 11/01/24 11:30 Resp 14 11/01/24 11:30 BP 96/59 11/01/24 11:30 Pulse Ox 96 11/01/24 11:30 FiO2 Intake & Output 10/31/24 11/01/24 11/01/24 18:59 06:59 18:59 Intake Total 594 Output Total 200 Balance 594 -200 Weight 64.6 kg Intake: Oral 594 Output: Urine 200 Other: Voiding Method Bedside Commode Bedside Commode Bedside Commode # Voids 1 1 # Bowel Movements 1 1 1 - Labs CBC & Chem 7: 11/01/24 05:46 11/01/24 05:46 Labs: Abnormal Lab Results - Last 24 Hours (Table) 10/31/24 10/31/24 10/31/24 Range/Units 16:34 16:35 16:55 RBC (3.80-5.40) m/uL Hgb (11.4-16.0) gm/dL Hct (34.0-46.0) % MCV (80.0-100.0) fL Plt Count (150-450) k/uL Sodium (137-145) mmol/L BUN (7-17) mg/dL Creatinine (0.52-1.04) mg/dL Glucose (74-99) mg/dL POC Glucose (mg/dL) 34 L* 33 L* 33 L* (70-110) mg/dL Calcium (8.4-10.2) mg/dL 10/31/24 10/31/24 11/01/24 Range/Units 17:13 19:51 02:02 RBC (3.80-5.40) m/uL Hgb (11.4-16.0) gm/dL Hct (34.0-46.0) % MCV (80.0-100.0) fL Plt Count (150-450) k/uL Sodium (137-145) mmol/L BUN (7-17) mg/dL Creatinine (0.52-1.04) mg/dL Glucose (74-99) mg/dL POC Glucose (mg/dL) 41 L* 113 H 318 H (70-110) mg/dL Calcium (8.4-10.2) mg/dL 11/01/24 11/01/24 11/01/24 Range/Units 02:04 05:46 05:46 RBC 3.22 L (3.80-5.40) m/uL Hgb 10.4 L (11.4-16.0) gm/dL Hct 33.0 L (34.0-46.0) % MCV 102.3 H (80.0-100.0) fL Plt Count 139 L (150-450) k/uL Sodium 128 L (137-145) mmol/L BUN 27 H (7-17) mg/dL Creatinine 2.05 H (0.52-1.04) mg/dL Glucose 305 H (74-99) mg/dL POC Glucose (mg/dL) 281 H (70-110) mg/dL Calcium 7.7 L (8.4-10.2) mg/dL 11/01/24 11/01/24 Range/Units 05:54 05:56 RBC (3.80-5.40) m/uL Hgb (11.4-16.0) gm/dL Hct (34.0-46.0) % MCV (80.0-100.0) fL Plt Count (150-450) k/uL Sodium (137-145) mmol/L BUN (7-17) mg/dL Creatinine (0.52-1.04) mg/dL Glucose (74-99) mg/dL POC Glucose (mg/dL) 346 H 315 H (70-110) mg/dL Calcium (8.4-10.2) mg/dL
--- NOTE | 2024-11-01 15:45 | P.PN ---
Subjective Progress Note Date: 11/01/24 Principal diagnosis: Reason for follow-up is a urinary tract infection Patient is a 59-year-old female with a past medical history significant for coronary artery disease diabetes mellitus fibromyalgia reflux hypertension hyperlipidemia [place] end-stage renal disease on dialysis still makes some urine he was recently admitted to this facility with emphysematous cystitis, urine culture positive for ESBL E. coli now presented back to the hospital chest pain also having some nausea vomiting suprapubic pain and hematuria. On today's evaluation that is 11/01/2024, the patient continues to be afebrile, the patient is on room air and breathing comfortably, the Pt denies having any chest pain or cough, the patient slightly sleepy today not a good historian normal Has been reported. Patient will count 4.1, creatinine 2.05 Objective - Vital Signs Vital signs: Vital Signs Temp 97.7 F 11/01/24 11:30 Pulse 75 11/01/24 11:30 Resp 14 11/01/24 11:30 BP 96/59 11/01/24 11:30 Pulse Ox 96 11/01/24 11:30 FiO2 Intake & Output 10/31/24 11/01/24 11/01/24 18:59 06:59 18:59 Intake Total 594 Output Total 200 Balance 594 -200 Weight 64.6 kg Intake: Oral 594 Output: Urine 200 Other: Voiding Method Bedside Commode Bedside Commode Bedside Commode # Voids 1 1 # Bowel Movements 1 1 1 - Exam GENERAL DESCRIPTION: Middle-age female lying in bed in no distress RESPIRATORY SYSTEM: Unlabored breathing , decreased breath sounds at bases HEART: S1 S2 regular rate and rhythm , ABDOMEN: Soft , no tenderness EXTREMITIES: No edema feet - Labs CBC & Chem 7: 11/01/24 05:46 11/01/24 05:46 Labs: Abnormal Lab Results - Last 24 Hours (Table) 10/31/24 10/31/24 10/31/24 Range/Units 16:34 16:35 16:55 RBC (3.80-5.40) m/uL Hgb (11.4-16.0) gm/dL Hct (34.0-46.0) % MCV (80.0-100.0) fL Plt Count (150-450) k/uL Sodium (137-145) mmol/L BUN (7-17) mg/dL Creatinine (0.52-1.04) mg/dL Glucose (74-99) mg/dL POC Glucose (mg/dL) 34 L* 33 L* 33 L* (70-110) mg/dL Calcium (8.4-10.2) mg/dL 10/31/24 10/31/24 11/01/24 Range/Units 17:13 19:51 02:02 RBC (3.80-5.40) m/uL Hgb (11.4-16.0) gm/dL Hct (34.0-46.0) % MCV (80.0-100.0) fL Plt Count (150-450) k/uL Sodium (137-145) mmol/L BUN (7-17) mg/dL Creatinine (0.52-1.04) mg/dL Glucose (74-99) mg/dL POC Glucose (mg/dL) 41 L* 113 H 318 H (70-110) mg/dL Calcium (8.4-10.2) mg/dL 11/01/24 11/01/24 11/01/24 Range/Units 02:04 05:46 05:46 RBC 3.22 L (3.80-5.40) m/uL Hgb 10.4 L (11.4-16.0) gm/dL Hct 33.0 L (34.0-46.0) % MCV 102.3 H (80.0-100.0) fL Plt Count 139 L (150-450) k/uL Sodium 128 L (137-145) mmol/L BUN 27 H (7-17) mg/dL Creatinine 2.05 H (0.52-1.04) mg/dL Glucose 305 H (74-99) mg/dL POC Glucose (mg/dL) 281 H (70-110) mg/dL Calcium 7.7 L (8.4-10.2) mg/dL 11/01/24 11/01/24 Range/Units 05:54 05:56 RBC (3.80-5.40) m/uL Hgb (11.4-16.0) gm/dL Hct (34.0-46.0) % MCV (80.0-100.0) fL Plt Count (150-450) k/uL Sodium (137-145) mmol/L BUN (7-17) mg/dL Creatinine (0.52-1.04) mg/dL Glucose (74-99) mg/dL POC Glucose (mg/dL) 346 H 315 H (70-110) mg/dL Calcium (8.4-10.2) mg/dL Assessment and Plan (1) History of infection due to ESBL Escherichia coli Current Visit: Yes Status: Acute Code(s): Z86.19 - PERSONAL HISTORY OF OTHER INFECTIOUS AND PARASITIC DISEASES SNOMED Code(s): 203389564 (2) UTI (urinary tract infection) Current Visit: No Status: Acute Code(s): N39.0 - URINARY TRACT INFECTION, SITE NOT SPECIFIED SNOMED Code(s): 82265464 Plan: 1patient with symptoms of nausea and vomiting suprapubic discomfort burning urine along with some blood in the urine concerning for cystitis in this patient who recently did have recent ESBL E. coli emphysematous cystitis CT abdominal pelvis this admission did not show any emphysematous cystitis, colovesicular fistula cannot be excluded subsequently did have a CT without contrast with concern for uncomplicated colitis patient will benefit from CT of the pelvis with rectal contrast to evaluate for any colovesical fistula may be responsible for these recurrent UTIs 2-patient urine culture currently growing vancomycin-resistant Enterococcus for the patient is currently being treated with daptomycin and monitor clinical course closely Dictation was produced using [employer] dictation software. please excuse any grammatical, word or spelling errors. Time with Patient: Less than 30
[2024-11-01 16:19] LABS: Glucose,Whole Blood 40 mg/dL (70-110)
[2024-11-01 17:01] LABS: Glucose,Whole Blood 54 mg/dL (70-110)
[2024-11-01 17:24] LABS: Glucose,Whole Blood 85 mg/dL (70-110)
[2024-11-01] MEDS: LOPERAMIDE 2 MG CAP PO SCH (17:30)
--- NOTE | 2024-11-01 19:04 | P.PN ---
Subjective Patient is seen for follow-up for end-stage renal disease. Scheduled for hemodialysis today. No significant complaints today. Objective - Vital Signs Vital signs: Vital Signs Temp 98 F 11/01/24 18:38 Pulse 74 11/01/24 18:38 Resp 16 11/01/24 18:38 BP 132/70 11/01/24 18:38 Pulse Ox 99 11/01/24 16:00 FiO2 Intake & Output 10/31/24 11/01/24 11/01/24 18:59 06:59 18:59 Intake Total 594 400 Output Total 200 4400 Balance 594 -200 -4000 Weight 64.6 kg Intake: Oral 594 Hemodialysis 400 Output: Urine 200 Hemodialysis 2400 Hemodialysis Net Amount 2000 Other: Voiding Method Bedside Commode Bedside Commode Bedside Commode # Voids 1 1 # Bowel Movements 1 1 1 - Exam Patient is awake comfortable, alert oriented x 3. Examination of the heart S1 and S2 Examination of the lungs bilateral breath sounds are heard Abdomen is soft mild tenderness noted in the lower abdomen Examination of lower extremities shows edema 1+ bilaterally mostly chronic. 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 - Labs CBC & Chem 7: 11/01/24 05:46 11/01/24 05:46 Labs: Abnormal Lab Results - Last 24 Hours (Table) 10/31/24 11/01/24 11/01/24 Range/Units 19:51 02:02 02:04 RBC (3.80-5.40) m/uL Hgb (11.4-16.0) gm/dL Hct (34.0-46.0) % MCV (80.0-100.0) fL Plt Count (150-450) k/uL Sodium (137-145) mmol/L BUN (7-17) mg/dL Creatinine (0.52-1.04) mg/dL Glucose (74-99) mg/dL POC Glucose (mg/dL) 113 H 318 H 281 H (70-110) mg/dL Calcium (8.4-10.2) mg/dL 11/01/24 11/01/24 11/01/24 Range/Units 05:46 05:46 05:54 RBC 3.22 L (3.80-5.40) m/uL Hgb 10.4 L (11.4-16.0) gm/dL Hct 33.0 L (34.0-46.0) % MCV 102.3 H (80.0-100.0) fL Plt Count 139 L (150-450) k/uL Sodium 128 L (137-145) mmol/L BUN 27 H (7-17) mg/dL Creatinine 2.05 H (0.52-1.04) mg/dL Glucose 305 H (74-99) mg/dL POC Glucose (mg/dL) 346 H (70-110) mg/dL Calcium 7.7 L (8.4-10.2) mg/dL 11/01/24 11/01/24 11/01/24 Range/Units 05:56 16:18 16:58 RBC (3.80-5.40) m/uL Hgb (11.4-16.0) gm/dL Hct (34.0-46.0) % MCV (80.0-100.0) fL Plt Count (150-450) k/uL Sodium (137-145) mmol/L BUN (7-17) mg/dL Creatinine (0.52-1.04) mg/dL Glucose (74-99) mg/dL POC Glucose (mg/dL) 315 H 40 L* 54 L (70-110) mg/dL Calcium (8.4-10.2) mg/dL Assessment and Plan Assessment: 1. End-stage renal disease maintained on hemodialysis on Monday schedule. 2. Cardiomyopathy ejection fraction 15 to 20%. 3. Diabetes mellitus. 4. Coronary artery disease status post CABG. 6. Volume overload. 7. Hypervolemic hyponatremia. 8. ESBL emphysematous cystitis on antibiotics. CT abdomen with rectal contrast did not show any significant fistula although it was suboptimal study. Plan: Hemodialysis in today increase UF as tolerated Continue Demadex Recommend decrease pain medications.
[2024-11-01 20:23] LABS: Glucose,Whole Blood 78 mg/dL (70-110)
[2024-11-02 02:27] LABS: Glucose,Whole Blood 291 mg/dL (70-110)
[2024-11-02] MEDS: INSULIN DETEMIR (LEVEMIR) 100 UNIT/ML SYR SQ SCH (06:18)
[2024-11-02 06:27] LABS: Basophils % (A) 0 %; Eosinophils # (A) 0.1 k/uL (0-0.7); Eosinophils % (A) 3 %; HCT 32.6 % (34.0-46.0); HGB 10.5 gm/dL (11.4-16.0); Lymphocytes # (A) 1.1 k/uL (1.0-4.8); Lymphocytes % (A) 27 %; MCH 32.2 pg (25.0-35.0); MCHC 32.1 g/dL (31.0-37.0); MCV 100.5 fL (80.0-100.0); Macrocytosis Slight; Mean Platelet Volume 7.8; Monocytes # (A) 0.2 k/uL (0-1.0); Monocytes % (A) 6 %; Neutrophils # (A) 2.5 k/uL (1.3-7.7); Neutrophils % (A) 61 %; Platelet Count 169 k/uL (150-450); RBC 3.25 m/uL (3.80-5.40); RDW 14.6 % (11.5-15.5); WBC 4.2 k/uL (3.8-10.6)
[2024-11-02 07:00] LABS: African American GFR (CKD) 47 (>60 ml/min/1.73 sqM); Anion Gap 6 mmol/L; Blood Urea Nitrogen 14 mg/dL (7-17); Calcium 7.5 mg/dL (8.4-10.2); Carbon Dioxide 27 mmol/L (22-30); Chloride 96 mmol/L (98-107); Glucose 162 mg/dL (74-99); Non-African American GFR(CKD) 41 (>60 ml/min/1.73 sqM); Potassium 4.2 mmol/L (3.5-5.1); Sodium 129 mmol/L (137-145)
[2024-11-02 07:44] LABS: Glucose,Whole Blood 150 mg/dL (70-110)
[2024-11-02 11:25] LABS: Glucose,Whole Blood 144 mg/dL (70-110)
--- NOTE | 2024-11-02 14:05 | P.PN ---
Subjective Progress Note Date: 11/02/24 Patient is seen for follow-up for end-stage renal disease. No significant complaints today. Patient is awake comfortable, alert oriented x 3. Examination of the heart S1 and S2 Examination of the lungs bilateral breath sounds are heard Abdomen is soft mild tenderness noted in the lower abdomen Examination of lower extremities shows edema 1+ bilaterally mostly chronic. 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 Objective - Vital Signs Vital signs: Vital Signs Temp 98.1 F 11/02/24 08:14 Pulse 96 11/02/24 08:14 Resp 14 11/02/24 08:14 BP 117/66 11/02/24 08:14 Pulse Ox 92 L 11/02/24 08:14 FiO2 Intake & Output 11/01/24 11/02/24 11/02/24 18:59 06:59 18:59 Intake Total 400 Output Total 4400 0 Balance -4000 0 Weight 65.2 kg Intake: Hemodialysis 400 Output: Gastric Drainage 0 Urine 0 Stool 0 Urine/Stool Mix 0 Emesis 0 Oral Regurgitation 0 Hemodialysis 2400 Hemodialysis Net Amount 2000 Other 0 Other: Voiding Method Bedside Commode Bedside Commode # Voids 1 1 0 # Bowel Movements 1 0 - Labs CBC & Chem 7: 11/02/24 06:02 11/02/24 06:02 Labs: Abnormal Lab Results - Last 24 Hours (Table) 11/01/24 11/01/24 11/02/24 Range/Units 16:18 16:58 02:26 RBC (3.80-5.40) m/uL Hgb (11.4-16.0) gm/dL Hct (34.0-46.0) % MCV (80.0-100.0) fL Sodium (137-145) mmol/L Chloride (98-107) mmol/L Creatinine (0.52-1.04) mg/dL Glucose (74-99) mg/dL POC Glucose (mg/dL) 40 L* 54 L 291 H (70-110) mg/dL Calcium (8.4-10.2) mg/dL 11/02/24 11/02/24 11/02/24 Range/Units 06:02 06:02 06:05 RBC 3.25 L (3.80-5.40) m/uL Hgb 10.5 L (11.4-16.0) gm/dL Hct 32.6 L (34.0-46.0) % MCV 100.5 H (80.0-100.0) fL Sodium 129 L (137-145) mmol/L Chloride 96 L (98-107) mmol/L Creatinine 1.41 H (0.52-1.04) mg/dL Glucose 162 H (74-99) mg/dL POC Glucose (mg/dL) 150 H (70-110) mg/dL Calcium 7.5 L (8.4-10.2) mg/dL Assessment and Plan Assessment: 1. End-stage renal disease maintained on hemodialysis on Monday schedule. 2. Cardiomyopathy ejection fraction 15 to 20%. 3. Diabetes mellitus. 4. Coronary artery disease status post CABG. 6. Volume overload. 7. Hypervolemic hyponatremia. 8. ESBL emphysematous cystitis on antibiotics. CT abdomen with rectal contrast did not show any significant fistula although it was suboptimal study. Plan: Hemodialysis MWF schedule Continue Demadex
[2024-11-02 16:22] LABS: Glucose,Whole Blood 134 mg/dL (70-110)
[2024-11-02] MEDS: LOPERAMIDE 2 MG CAP PO SCH (16:23)
--- NOTE | 2024-11-02 17:13 | P.PN ---
Subjective Progress Note Date: 11/02/24 Hospital Course: 1-year-old female with PMH of CAD with ischemic cardiomyopathy with EF of 15 to 20%, COPD, ESRD on dialysis MWF via R chest catheter, diabetes mellitus, fibromyalgia, GERD, hyperlipidemia, hypertension, and osteoarthritis presented to the emergency department for chest pain. Started on 9:30AM, woke her up from sleep. Pain is intermittent, pressure like in nature, left sided and radiates to the right arm and neck. Pain is associated with shortness of breath. No changes with movement or deep inspiration. Patient reports missing her Wed and Fri dialysis session due to diarrhea (ongoing for the past 2 months). She reports poor appetite and despite not eating much her blood glucose has been running high. She reports intermittent nausea and vomiting. Previously admitted from 09/13-09/20 for treatment of emphysematous cystitis with micorperforations, Urology recommended evaluation for enterovesical fistula at that time but patient refused. She was discharged to SNF on Ertapenem for 10 days. In the ED she underwent extensive evaluation: BP 139/66, HR 85, RR 20, T 97.4F, 100% on 2L NC. CBC, Coag panel, CMP significant for RBC 3.4, Hg 10.9, MCV 106.3, Na 126, Cl 90, bicarb 9, BUN 56, Cr 3.32, glu 681, Ca 8.2, alk phos 202, alb 3. Lipase 22. Trop 0.03. Acetone positive. ABG pH 7.31, pCO2 31. EKG sinus rhythm with interventricular conduction delay. CXR no acute process. Patient is admitted for further workup and management. Started on insulin drip and D5 1/2 NS with KCl IV for DKA. DKA resolved and she was transitioned to ISS. Troponins trended 0.03, 0.025, 0.024 and ACS was ruled out. Cardiology consulted, recommended Echo. Patient with complaints of dysuria, started on Ertapenem for h/o ESBL and ID consulted. CT AP with PO contrast ordered given history of emphysematous cystitis with microperforations concerning for enterovesical fistula which showed diffucse anasarca and edema, no free air in the bladder. TTE on 10/29 showed EF 25 to 30% with severely increased left ventricular diastolic volume, left ventricular systolic volume, inferoseptal dyskinesis, mild pulmonary hypertension RVSP 35 CT abdomen with rectal contrast: More prominent diffuse anasarca and edema, no free air or contrast in the bladder lumen to diagnose fistula, cannot exclude acute uncomplicated colitis. Repeat CT abdomen with rectal contrast done 1 11/01, limited rectal contrast was able to be retained in the patient and evaluation for enterovesical fistula is suboptimal, no obvious secondary changes to suggest fistula. Readmission prevention meeting 10/30:. Patient recurrently misses her Monday hemodialysis, sometimes monday hemodialysis, hemodialysis transportation is arranged. Due to ongoing diarrhea, CT findings suggestive of possible colitis and transverse colon, GI consulted. Cdiff ordered, negative, patient can continue Imodium, Questran, if diarrhea continues after antibiotic use can follow-up with gastroenterology, otherwise cleared from GI for discharge. Repeat CT with rectal contrast was suboptimal as patient could not hold the contrast long enough, discussed with ID, no plans to repeat study, patient needs to complete total 7 days of daptomycin. Patient plans to get IV and oral opiates during her admissions, she does have history of methamphetamine abuse, concern for opioid use disorder, pain medicine consulted. No changes recommended. Psychiatry consulted to evaluate for depression possibly contributing to noncompliance. Added Zoloft 25 nightly, outpatient mental health/psychiatry Discussed at length option of being discharged to subacute rehab, patient would like to think about it and will tell me tomorrow 11/03 Pertinent Imaging: No new imaging Subjective: Better today, has approximately 5 loose bowel movements a day Pertinent positives and negatives as discussed above, a complete review of systems was performed and all other systems are negative. Vitals Signs Reviewed. General: [nontoxic], [no distress], [appears at stated age], chronically ill appearing Derm: [warm], [dry] Head: [atraumatic], [normocephalic], [symmetric] Eyes: [EOMI], [no lid lag], [anicteric sclera] Mouth: [no lip lesion], [mucus membranes moist] Cardiovascular: [S1S2 reg], [no murmur] Lungs: [CTA bilateral], [no rhonchi, no rales] , [no accessory muscle use] Abdominal: [soft], [ nontender to palpation], [no guarding], [no appreciable organomegaly] Ext: [no gross muscle atrophy], [no edema], [no contractures] Neuro: [ CN II-XI grossly intact], [no focal neuro deficits] Psych: [Alert], [oriented], [appropriate affect] Data Reviewed Today: Pertinent Labs: Hemoglobin 10.5, no leukocytosis, sodium 129, bicarb 27, glucose is better controlled Assessment and Plan:Chest pain, resolved. History of CAD with stenting, history of CABG, ACS ruled out CHF with EF 25 to 30%, not in acute exacerbation -Cardiology following, continue current medications, no need of invasive procedures, needs to be evaluated for ICD implantation ESRD on HD, -Continue HD per nephrology, hx of ESBL E. coli emphysematous cystitis UTI, enterococ casseliflavus Acute on chronic diarrhea Possible colitis -Continue the medicine, ID following -Patient apparently did not initially rectal contrast for the CT, she was showing possible colitis -GI consulted. . Cdiff ordered, negative, patient can continue Imodium, Questran, if diarrhea continues after antibiotic use can follow-up with gastroenterology, otherwise cleared from GI for discharge. -Repeat CT abdomen with rectal contrast done 1 11/01, limited rectal contrast was able to be retained in the patient and evaluation for enterovesical fistula is suboptimal, no obvious secondary changes to suggest fistula. Discussed with ID, no plans for another rectal contrast CT, patient is to complete 7 days of d aptomycin History of methamphetamine use, concern for opioid use disorder, consulted pain- no changes Noncompliance with HD, concern for depression: Consulted psychiatry COPD not in exacerbation: Continue DuoNebs, Symbicort, Spiriva GERD: Continue Protonix Hypothyroidism: Continue Synthroid 176 Hyperlipidemia: Continue Lipitor Hypertension: Metoprolol, torsemide, Entresto Type II DM with hyperglycemia Basal bolus with Levemir 9 units and mealtime 3 units, continue SSI [Resolved:] DKA DVT ppx: Heparin Code status: Code Anticipated discharge place: Home versus rehab, patient will make decision by 11/03 Objective - Vital Signs Vital signs: Vital Signs Temp 99.1 F 11/02/24 16:18 Pulse 93 11/02/24 16:18 Resp 14 11/02/24 16:18 BP 108/67 11/02/24 16:18 Pulse Ox 92 L 11/02/24 16:18 FiO2 Intake & Output 01/24/25 01/25/25 01/25/25 18:59 06:59 18:59 Intake Total 400 120 Output Total 4400 0 Balance -4000 120 Weight 65.2 kg Intake: Oral 120 Hemodialysis 400 Output: Gastric Drainage 0 Urine 0 Stool 0 Urine/Stool Mix 0 Emesis 0 Oral Regurgitation 0 Hemodialysis 2400 Hemodialysis Net Amount 2000 Other 0 Other: Voiding Method Bedside Commode Bedside Commode Bedside Commode # Voids 1 1 0 # Bowel Movements 1 1 - Labs CBC & Chem 7: 11/02/24 06:02 11/02/24 06:02 Labs: Abnormal Lab Results - Last 24 Hours (Table) 11/02/24 11/02/24 11/02/24 Range/Units 02:26 06:02 06:02 RBC 3.25 L (3.80-5.40) m/uL Hgb 10.5 L (11.4-16.0) gm/dL Hct 32.6 L (34.0-46.0) % MCV 100.5 H (80.0-100.0) fL Sodium 129 L (137-145) mmol/L Chloride 96 L (98-107) mmol/L Creatinine 1.41 H (0.52-1.04) mg/dL Glucose 162 H (74-99) mg/dL POC Glucose (mg/dL) 291 H (70-110) mg/dL Calcium 7.5 L (8.4-10.2) mg/dL 11/02/24 11/02/24 11/02/24 Range/Units 06:05 11:23 16:21 RBC (3.80-5.40) m/uL Hgb (11.4-16.0) gm/dL Hct (34.0-46.0) % MCV (80.0-100.0) fL Sodium (137-145) mmol/L Chloride (98-107) mmol/L Creatinine (0.52-1.04) mg/dL Glucose (74-99) mg/dL POC Glucose (mg/dL) 150 H 144 H 134 H (70-110) mg/dL Calcium (8.4-10.2) mg/dL
[2024-11-02 20:10] LABS: Glucose,Whole Blood 165 mg/dL (70-110)
[2024-11-03 02:10] LABS: Glucose,Whole Blood 275 mg/dL (70-110)
[2024-11-03 06:19] LABS: Glucose,Whole Blood 187 mg/dL (70-110)
[2024-11-03 08:52] LABS: Basophils % (A) 1 %; Eosinophils # (A) 0.1 k/uL (0-0.7); Eosinophils % (A) 2 %; HCT 38.3 % (34.0-46.0); Lymphocytes # (A) 1.2 k/uL (1.0-4.8); Lymphocytes % (A) 29 %; MCH 31.6 pg (25.0-35.0); MCHC 31.3 g/dL (31.0-37.0); Macrocytosis Slight; Mean Platelet Volume 8.3; Monocytes # (A) 0.2 k/uL (0-1.0); Monocytes % (A) 5 %; Neutrophils # (A) 2.5 k/uL (1.3-7.7); Neutrophils % (A) 62 %; Platelet Count 191 k/uL (150-450); RBC 3.79 m/uL (3.80-5.40); RDW 14.7 % (11.5-15.5)
[2024-11-03 09:11] LABS: African American GFR (CKD) 40 (>60 ml/min/1.73 sqM); Anion Gap 3 mmol/L; Blood Urea Nitrogen 16 mg/dL (7-17); Calcium 8.1 mg/dL (8.4-10.2); Carbon Dioxide 28 mmol/L (22-30); Chloride 100 mmol/L (98-107); Glucose 249 mg/dL (74-99); Non-African American GFR(CKD) 34 (>60 ml/min/1.73 sqM); Sodium 131 mmol/L (137-145)
--- NOTE | 2024-11-03 09:33 | P.PN ---
Subjective Progress Note Date: 11/02/24 Principal diagnosis: Reason for follow-up is a urinary tract infection Patient is a 59-year-old female with a past medical history significant for coronary artery disease diabetes mellitus fibromyalgia reflux hypertension hyperlipidemia NE end-stage renal disease on dialysis still makes some urine he was recently admitted to this facility with emphysematous cystitis, urine culture positive for ESBL E. coli now presented back to the hospital chest pain also having some nausea vomiting suprapubic pain and hematuria. On today's evaluation that is 11/02/2024, patient did not have any fever and denies any chills, patient is breathing comfortably on room air, patient with no chest pain or cough patient did not have any abdominal pain nausea vomiting or any loose stools, mention feeling better today. Patient did have a white count of 4.2, creatinine is 1.41 Objective - Vital Signs Vital signs: Vital Signs Temp 98.1 F 11/02/24 08:14 Pulse 96 11/02/24 08:14 Resp 14 11/02/24 08:14 BP 117/66 11/02/24 08:14 Pulse Ox 92 L 11/02/24 08:14 FiO2 Intake & Output 11/01/24 11/02/24 11/02/24 18:59 06:59 18:59 Intake Total 400 Output Total 4400 0 Balance -4000 0 Weight 65.2 kg Intake: Hemodialysis 400 Output: Gastric Drainage 0 Urine 0 Stool 0 Urine/Stool Mix 0 Emesis 0 Oral Regurgitation 0 Hemodialysis 2400 Hemodialysis Net Amount 2000 Other 0 Other: Voiding Method Bedside Commode Bedside Commode # Voids 1 1 0 # Bowel Movements 1 0 - Exam Middle-age female up in the chair in no distress Unlabored breathing Awake alert oriented x 3 - Labs CBC & Chem 7: 11/03/24 08:35 11/03/24 08:35 Labs: Abnormal Lab Results - Last 24 Hours (Table) 11/01/24 11/01/24 11/02/24 Range/Units 16:18 16:58 02:26 RBC (3.80-5.40) m/uL Hgb (11.4-16.0) gm/dL Hct (34.0-46.0) % MCV (80.0-100.0) fL Sodium (137-145) mmol/L Chloride (98-107) mmol/L Creatinine (0.52-1.04) mg/dL Glucose (74-99) mg/dL POC Glucose (mg/dL) 40 L* 54 L 291 H (70-110) mg/dL Calcium (8.4-10.2) mg/dL 11/02/24 11/02/24 11/02/24 Range/Units 06:02 06:02 06:05 RBC 3.25 L (3.80-5.40) m/uL Hgb 10.5 L (11.4-16.0) gm/dL Hct 32.6 L (34.0-46.0) % MCV 100.5 H (80.0-100.0) fL Sodium 129 L (137-145) mmol/L Chloride 96 L (98-107) mmol/L Creatinine 1.41 H (0.52-1.04) mg/dL Glucose 162 H (74-99) mg/dL POC Glucose (mg/dL) 150 H (70-110) mg/dL Calcium 7.5 L (8.4-10.2) mg/dL Assessment and Plan (1) History of infection due to ESBL Escherichia coli Current Visit: Yes Status: Acute Code(s): Z86.19 - PERSONAL HISTORY OF OTHER INFECTIOUS AND PARASITIC DISEASES SNOMED Code(s): 031154231 (2) UTI (urinary tract infection) Current Visit: No Status: Acute Code(s): N39.0 - URINARY TRACT INFECTION, SITE NOT SPECIFIED SNOMED Code(s): 77056265 Plan: 1patient with symptoms of nausea and vomiting suprapubic discomfort burning urine along with some blood in the urine concerning for cystitis in this patient who recently did have recent ESBL E. coli emphysematous cystitis CT abdominal pelvis this admission did not show any emphysematous cystitis, colovesicular fistula cannot be excluded subsequently did have a CT without contrast with concern for uncomplicated colitis patient did have attempted CT of the pelvis with rectal contrast to evaluate for any colovesical fistula however the patient was unable to hold the rectal contrast 2-patient urine culture currently growing vancomycin-resistant Enterococcus, plan is for total of 7-day course of daptomycin discussed with the admitting physician Dictation was produced using [employer] dictation software. please excuse any grammatical, word or spelling errors. Time with Patient: Less than 30
[2024-11-03 11:23] LABS: Glucose,Whole Blood 215 mg/dL (70-110)
--- NOTE | 2024-11-03 12:19 | P.PN ---
Subjective Progress Note Date: 11/03/24 Hospital Course: 59-year-old female with PMH of CAD with ischemic cardiomyopathy with EF of 15 to 20%, COPD, ESRD on dialysis MWF via R chest catheter, diabetes mellitus, fibromyalgia, GERD, hyperlipidemia, hypertension, and osteoarthritis presented to the emergency department for chest pain. Started on 9:30AM, woke her up from sleep. Pain is intermittent, pressure like in nature, left sided and radiates to the right arm and neck. Pain is associated with shortness of breath. No changes with movement or deep inspiration. Patient reports missing her Wed and Fri dialysis session due to diarrhea (ongoing for the past 2 months). She reports poor appetite and despite not eating much her blood glucose has been running high. She reports intermittent nausea and vomiting. Previously admitted from 09/13-09/20 for treatment of emphysematous cystitis with micorperforations, Urology recommended evaluation for enterovesical fistula at that time but patient refused. She was discharged to SNF on Ertapenem for 10 days. In the ED she underwent extensive evaluation: BP 139/66, HR 85, RR 20, T 97.4F, 100% on 2L NC. CBC, Coag panel, CMP significant for RBC 3.4, Hg 10.9, MCV 106.3, Na 126, Cl 90, bicarb 9, BUN 56, Cr 3.32, glu 681, Ca 8.2, alk phos 202, alb 3. Lipase 22. Trop 0.03. Acetone positive. ABG pH 7.31, pCO2 31. EKG sinus rhythm with interventricular conduction delay. CXR no acute process. Patient is admitted for further workup and management. Started on insulin drip and D5 1/2 NS with KCl IV for DKA. DKA resolved and she was transitioned to ISS. Troponins trended 0.03, 0.025, 0.024 and ACS was ruled out. Cardiology consulted, recommended Echo. TTE on 10/29 showed EF 25 to 30% with severely increased left ventricular diastolic volume, left ventricular systolic volume, inferoseptal dyskinesis, mild pulmonary hypertension RVSP 35 Patient with complaints of dysuria, started on Ertapenem for h/o ESBL and ID consulted. Switch to daptomycin on 11/01. CT AP with PO contrast ordered given history of emphysematous cystitis with microperforations concerning for enterovesical fistula which showed diffucse anasarca and edema, no free air in the bladder. CT abdomen with rectal contrast: More prominent diffuse anasarca and edema, no free air or contrast in the bladder lumen to diagnose fistula, cannot exclude acute uncomplicated colitis. Repeat CT abdomen with rectal contrast done 1 11/01, limited rectal contrast was able to be retained in the patient and evaluation for enterovesical fistula is suboptimal, no obvious secondary changes to suggest fistula.Repeat CT with rectal contrast was suboptimal as patient could not hold the contrast long enough, discussed with ID, no plans to repeat study, patient needs to complete total 7 days of daptomycin. Readmission prevention meeting 10/30:. Patient recurrently misses her Monday hemodialysis, sometimes monday hemodialysis, hemodialysis transportation is arranged. Due to ongoing diarrhea, CT findings suggestive of possible colitis and transverse colon, GI consulted. Cdiff ordered, negative, patient can continue Imodium, Questran, if diarrhea continues after antibiotic use can follow-up with gastroenterology, otherwise cleared from GI for discharge. Patient plans to get IV and oral opiates during her admissions, she does have history of methamphetamine abuse, concern for opioid use disorder, pain medicine consulted. No changes recommended. Psychiatry consulted to evaluate for depression possibly contributing to n oncompliance. Added Zoloft 25 nightly, outpatient mental health/psychiatry Discussed at length option of being discharged to subacute rehab, patient is considering still, understand that she will need IV antibiotics at discharge, previously was discharged with midline that only lasted 1 day per patient. Pertinent Imaging: No new imaging Subjective: Feeling significantly better today, diarrhea is settling down, appetite is improved Pertinent positives and negatives as discussed above, a complete review of systems was performed and all other systems are negative. Vitals Signs Reviewed. General: [nontoxic], [no distress], [appears at stated age], chronically ill appearing Derm: [warm], [dry] Head: [atraumatic], [normocephalic], [symmetric] Eyes: [EOMI], [no lid lag], [anicteric sclera] Mouth: [no lip lesion], [mucus membranes moist] Cardiovascular: [S1S2 reg], [no murmur] Lungs: [CTA bilateral], [no rhonchi, no rales] , [no accessory muscle use] Abdominal: [soft], [ nontender to palpation], [no guarding], [no appreciable organomegaly] Ext: [no gross muscle atrophy], [no edema], [no contractures] Neuro: [ CN II-XI grossly intact], [no focal neuro deficits] Psych: [Alert], [oriented], [appropriate affect] Data Reviewed Today: Pertinent Labs: Stable CBC with WBC of 4.0, hemoglobin 12, platelet count 181, sodium 131, carbon dioxide 28, glucose is improved in 180s, 200s. Assessment and Plan:Chest pain, resolved. History of CAD with stenting, history of CABG, ACS ruled out CHF with EF 25 to 30%, not in acute exacerbation -Cardiology following, continue current medications, no need of invasive procedures, needs to be evaluated for ICD implantation ESRD on HD, -Continue HD per nephrology, hemodialysis 11/04 AM hx of ESBL E. coli emphysematous cystitis UTI, enterococ casseliflavus Acute on chronic diarrhea Possible colitis -Continue the medicine, ID following -Patient apparently did not initially rectal contrast for the CT, she was showing possible colitis -GI consulted. . Cdiff ordered, negative, patient can continue Imodium, Questran, if diarrhea continues after antibiotic use can follow-up with gastroenterology, otherwise cleared from GI for discharge. -Repeat CT abdomen with rectal contrast done 11/01, limited rectal contrast was able to be retained in the patient and evaluation for enterovesical fistula is suboptimal, no obvious secondary changes to suggest fistula. Discussed with ID, no plans for another rectal contrast CT, patient is to complete 7 days of daptomycin SOT 11/01 History of methamphetamine use, concern for opioid use disorder, consulted pain- no changes Noncompliance with HD, concern for depression: Consulted psychiatry COPD not in exacerbation: Continue DuoNebs, Symbicort, Spiriva GERD: Continue Protonix Hypothyroidism: Continue Synthroid 176 Hyperlipidemia: Continue Lipitor Hypertension: Metoprolol, torsemide, Entresto Type II DM with hyperglycemia Basal bolus with Levemir 9 units and mealtime 3 units, continue SSI [Resolved:] DKA DVT ppx: Heparin Code status: Code Anticipated discharge place: Home versus rehab, patient will need IV antibiotics Objective - Vital Signs Vital signs: Vital Signs Temp 97.5 F L 11/03/24 11:31 Pulse 77 11/03/24 11:31 Resp 14 11/03/24 11:31 BP 135/67 11/03/24 11:31 Pulse Ox 96 11/03/24 11:31 FiO2 Intake & Output 11/02/24 11/03/24 11/03/24 18:59 06:59 18:59 Intake Total 120 640 240 Output Total 0 4400 Balance 120 -3760 240 Weight 61.4 kg Intake: Oral 120 240 240 Hemodialysis 400 Output: Gastric Drainage 0 Urine 0 0 Stool 0 Urine/Stool Mix 0 Emesis 0 Oral Regurgitation 0 Hemodialysis 2400 Hemodialysis Net Amount 2000 Other 0 Other: Voiding Method Bedside Commode Bedside Commode Bedside Commode # Voids 0 # Bowel Movements 1 - Labs CBC & Chem 7: 11/03/24 08:35 11/03/24 08:35 Labs: Abnormal Lab Results - Last 24 Hours (Table) 11/02/24 11/02/24 11/03/24 Range/Units 16:21 20:09 02:09 RBC (3.80-5.40) m/uL MCV (80.0-100.0) fL Sodium (137-145) mmol/L Creatinine (0.52-1.04) mg/dL Glucose (74-99) mg/dL POC Glucose (mg/dL) 134 H 165 H 275 H (70-110) mg/dL Calcium (8.4-10.2) mg/dL 11/03/24 11/03/24 11/03/24 Range/Units 06:18 08:35 08:35 RBC 3.79 L (3.80-5.40) m/uL MCV 101.0 H (80.0-100.0) fL Sodium 131 L (137-145) mmol/L Creatinine 1.62 H (0.52-1.04) mg/dL Glucose 249 H (74-99) mg/dL POC Glucose (mg/dL) 187 H (70-110) mg/dL Calcium 8.1 L (8.4-10.2) mg/dL 11/03/24 Range/Units 11:21 RBC (3.80-5.40) m/uL MCV (80.0-100.0) fL Sodium (137-145) mmol/L Creatinine (0.52-1.04) mg/dL Glucose (74-99) mg/dL POC Glucose (mg/dL) 215 H (70-110) mg/dL Calcium (8.4-10.2) mg/dL
--- NOTE | 2024-11-03 12:26 | P.PN ---
Subjective Progress Note Date: 11/03/24 Patient is seen for follow-up for end-stage renal disease. No significant complaints today. Patient is awake comfortable, alert oriented x 3. Examination of the heart S1 and S2 Examination of the lungs bilateral breath sounds are heard Abdomen is soft mild tenderness noted in the lower abdomen Examination of lower extremities shows edema 1+ bilaterally mostly chronic. ALTERATION HAND exam grossly intact Objective - Vital Signs Vital signs: Vital Signs Temp 97.5 F L 11/03/24 11:31 Pulse 77 11/03/24 11:31 Resp 14 11/03/24 11:31 BP 135/67 11/03/24 11:31 Pulse Ox 96 11/03/24 11:31 FiO2 Intake & Output 11/02/24 11/03/24 11/03/24 18:59 06:59 18:59 Intake Total 120 640 240 Output Total 0 4400 Balance 120 -3760 240 Weight 61.4 kg Intake: Oral 120 240 240 Hemodialysis 400 Output: Gastric Drainage 0 Urine 0 0 Stool 0 Urine/Stool Mix 0 Emesis 0 Oral Regurgitation 0 Hemodialysis 2400 Hemodialysis Net Amount 2000 Other 0 Other: Voiding Method Bedside Commode Bedside Commode Bedside Commode # Voids 0 # Bowel Movements 1 - Labs CBC & Chem 7: 11/03/24 08:35 11/03/24 08:35 Labs: Abnormal Lab Results - Last 24 Hours (Table) 11/02/24 11/02/24 11/03/24 Range/Units 16:21 20:09 02:09 RBC (3.80-5.40) m/uL MCV (80.0-100.0) fL Sodium (137-145) mmol/L Creatinine (0.52-1.04) mg/dL Glucose (74-99) mg/dL POC Glucose (mg/dL) 134 H 165 H 275 H (70-110) mg/dL Calcium (8.4-10.2) mg/dL 11/03/24 11/03/24 11/03/24 Range/Units 06:18 08:35 08:35 RBC 3.79 L (3.80-5.40) m/uL MCV 101.0 H (80.0-100.0) fL Sodium 131 L (137-145) mmol/L Creatinine 1.62 H (0.52-1.04) mg/dL Glucose 249 H (74-99) mg/dL POC Glucose (mg/dL) 187 H (70-110) mg/dL Calcium 8.1 L (8.4-10.2) mg/dL 11/03/24 Range/Units 11:21 RBC (3.80-5.40) m/uL MCV (80.0-100.0) fL Sodium (137-145) mmol/L Creatinine (0.52-1.04) mg/dL Glucose (74-99) mg/dL POC Glucose (mg/dL) 215 H (70-110) mg/dL Calcium (8.4-10.2) mg/dL Assessment and Plan Assessment: 1. End-stage renal disease maintained on hemodialysis on Monday schedule. 2. Cardiomyopathy ejection fraction 15 to 20%. 3. Diabetes mellitus. 4. Coronary artery disease status post CABG. 6. Volume overload. 7. Hypervolemic hyponatremia. 8. ESBL emphysematous cystitis on antibiotics. CT abdomen with rectal contrast did not show any significant fistula although it was suboptimal study. Plan: Hemodialysis MWF schedule Continue Demadex
--- NOTE | 2024-11-03 14:49 | P.PN ---
Subjective Progress Note Date: 11/03/24 Principal diagnosis: Reason for follow-up is a urinary tract infection Patient is a 59-year-old female with a past medical history significant for coronary artery disease diabetes mellitus fibromyalgia reflux hypertension hyperlipidemia SC end-stage renal disease on dialysis still makes some urine he was recently admitted to this facility with emphysematous cystitis, urine culture positive for ESBL E. coli now presented back to the hospital chest pain also having some nausea vomiting suprapubic pain and hematuria. On today's evaluation that is 11/03/2024, Patient is afebrile patient is currently on room air and denies having any shortness of breath, the patient denies any chest pain or cough, the patient denies any nausea vomiting abdominal pain has improved feeling better. Patient white count 4.2, creatinine 1.62 Objective - Vital Signs Vital signs: Vital Signs Temp 97.5 F L 11/03/24 11:31 Pulse 77 11/03/24 11:31 Resp 14 11/03/24 11:31 BP 135/67 11/03/24 11:31 Pulse Ox 96 11/03/24 11:31 FiO2 Intake & Output 11/02/24 11/03/24 11/03/24 18:59 06:59 18:59 Intake Total 120 640 358 Output Total 0 4400 Balance 120 -3760 358 Weight 61.4 kg Intake: Oral 120 240 358 Hemodialysis 400 Output: Gastric Drainage 0 Urine 0 0 Stool 0 Urine/Stool Mix 0 Emesis 0 Oral Regurgitation 0 Hemodialysis 2400 Hemodialysis Net Amount 2000 Other 0 Other: Voiding Method Bedside Commode Bedside Commode Bedside Commode # Voids 0 # Bowel Movements 1 - Exam Middle-age female up in the chair in no distress Unlabored breathing Awake alert oriented x 3 - Labs CBC & Chem 7: 11/03/24 08:35 11/03/24 08:35 Labs: Abnormal Lab Results - Last 24 Hours (Table) 11/02/24 11/02/24 11/03/24 Range/Units 16:21 20:09 02:09 RBC (3.80-5.40) m/uL MCV (80.0-100.0) fL Sodium (137-145) mmol/L Creatinine (0.52-1.04) mg/dL Glucose (74-99) mg/dL POC Glucose (mg/dL) 134 H 165 H 275 H (70-110) mg/dL Calcium (8.4-10.2) mg/dL 11/03/24 11/03/24 11/03/24 Range/Units 06:18 08:35 08:35 RBC 3.79 L (3.80-5.40) m/uL MCV 101.0 H (80.0-100.0) fL Sodium 131 L (137-145) mmol/L Creatinine 1.62 H (0.52-1.04) mg/dL Glucose 249 H (74-99) mg/dL POC Glucose (mg/dL) 187 H (70-110) mg/dL Calcium 8.1 L (8.4-10.2) mg/dL 11/03/24 Range/Units 11:21 RBC (3.80-5.40) m/uL MCV (80.0-100.0) fL Sodium (137-145) mmol/L Creatinine (0.52-1.04) mg/dL Glucose (74-99) mg/dL POC Glucose (mg/dL) 215 H (70-110) mg/dL Calcium (8.4-10.2) mg/dL Assessment and Plan (1) History of infection due to ESBL Escherichia coli Current Visit: Yes Status: Acute Code(s): Z86.19 - PERSONAL HISTORY OF OTHER INFECTIOUS AND PARASITIC DISEASES SNOMED Code(s): 138356750 (2) UTI (urinary tract infection) Current Visit: No Status: Acute Code(s): N39.0 - URINARY TRACT INFECTION, SITE NOT SPECIFIED SNOMED Code(s): 84822737 Plan: 1patient with symptoms of nausea and vomiting suprapubic discomfort burning urine along with some blood in the urine concerning for cystitis in this patient who recently did have recent ESBL E. coli emphysematous cystitis CT abdominal pelvis this admission did not show any emphysematous cystitis, colovesicular fistula cannot be excluded subsequently did have a CT without contrast with concern for uncomplicated colitis patient did have attempted CT of the pelvis with rectal contrast to evaluate for any colovesical fistula however the patient was unable to hold the rectal contrast 2-patient urine culture currently growing vancomycin-resistant Enterococcus, patient has shown clinical improvement with daptomycin to continue finish a 7- day course of therapy outpatient daily infusion may be an option if the patient does not want to go to the penitentiary discussed with the patient Dictation was produced using [employer] dictation software. please excuse any grammatical, word or spelling errors. Time with Patient: Less than 30
[2024-11-03 16:40] LABS: Glucose,Whole Blood 187 mg/dL (70-110)
[2024-11-03 20:11] LABS: Glucose,Whole Blood 241 mg/dL (70-110)
[2024-11-04 01:51] LABS: Glucose,Whole Blood 204 mg/dL (70-110)
[2024-11-04 05:50] LABS: Glucose,Whole Blood 119 mg/dL (70-110)
--- NOTE | 2024-11-04 10:44 | P.PN ---
Subjective Patient is seen in follow-up for end-stage renal disease. Tolerating dialysis well. No active complaints. Vital signs are stable. General: No acute distress. HEENT: Head exam is unremarkable. On nasal cannula. LUNGS: No audible rhonchi or wheezes. HEART: Rate and Rhythm are regular. ABDOMEN: Nontender. EXTREMITITES: 1+ edema. Objective - Vital Signs Vital signs: Vital Signs Temp 97.9 F 11/04/24 08:49 Pulse 88 11/04/24 08:49 Resp 14 11/04/24 08:49 BP 135/75 11/04/24 08:49 Pulse Ox 94 L 11/04/24 08:49 FiO2 Intake & Output 11/03/24 11/04/24 11/04/24 18:59 06:59 18:59 Intake Total 478 Balance 478 Weight 62.1 kg Intake: Oral 478 Other: Voiding Method Bedside Commode Toilet Toilet # Voids 0 1 - Labs CBC & Chem 7: 11/03/24 08:35 11/03/24 08:35 Labs: Abnormal Lab Results - Last 24 Hours (Table) 11/03/24 11/03/24 11/03/24 Range/Units 11:21 16:38 20:10 POC Glucose (mg/dL) 215 H 187 H 241 H (70-110) mg/dL 11/04/24 11/04/24 Range/Units 01:49 05:49 POC Glucose (mg/dL) 204 H 119 H (70-110) mg/dL Assessment and Plan Plan: Assessment: 1. End-stage renal disease maintained on hemodialysis on Monday schedule. 2. Cardiomyopathy ejection fraction 15 to 20%. 3. Diabetes mellitus. 4. Coronary artery disease status post CABG. 6. Volume overload. 7. Hypervolemic hyponatremia. 8. ESBL emphysematous cystitis on antibiotics. Urine culture positive for group D Enterococcus. Plan: Currently seen while undergoing hemodialysis. Next treatment Monday. Maintain torsemide.
[2024-11-04 11:29] LABS: Glucose,Whole Blood 129 mg/dL (70-110)
--- NOTE | 2024-11-04 14:31 | P.PN ---
Subjective Progress Note Date: 11/04/24 Hospital Course: 59-year-old female with PMH of CAD with ischemic cardiomyopathy with EF of 15 to 20%, COPD, ESRD on dialysis MWF via R chest catheter, diabetes mellitus, fibromyalgia, GERD, hyperlipidemia, hypertension, and osteoarthritis presented to the emergency department for chest pain. Started on 9:30AM, woke her up from sleep. Pain is intermittent, pressure like in nature, left sided and radiates to the right arm and neck. Pain is associated with shortness of breath. No changes with movement or deep inspiration. Patient reports missing her Wed and Fri dialysis session due to diarrhea (ongoing for the past 2 months). She reports poor appetite and despite not eating much her blood glucose has been running high. She reports intermittent nausea and vomiting. Previously admitted from 09/13-09/20 for treatment of emphysematous cystitis with micorperforations, Urology recommended evaluation for enterovesical fistula at that time but patient refused. She was discharged to SNF on Ertapenem for 10 days. In the ED she underwent extensive evaluation: BP 139/66, HR 85, RR 20, T 97.4F, 100% on 2L NC. CBC, Coag panel, CMP significant for RBC 3.4, Hg 10.9, MCV 106.3, Na 126, Cl 90, bicarb 9, BUN 56, Cr 3.32, glu 681, Ca 8.2, alk phos 202, alb 3. Lipase 22. Trop 0.03. Acetone positive. ABG pH 7.31, pCO2 31. EKG sinus rhythm with interventricular conduction delay. CXR no acute process. Patient is admitted for further workup and management. Started on insulin drip and D5 1/2 NS with KCl IV for DKA. DKA resolved and she was transitioned to ISS. Troponins trended 0.03, 0.025, 0.024 and ACS was ruled out. Cardiology consulted, recommended Echo. TTE on 10/29 showed EF 25 to 30% with severely increased left ventricular diastolic volume, left ventricular systolic volume, inferoseptal dyskinesis, mild pulmonary hypertension RVSP 35 Patient with complaints of dysuria, started on Ertapenem for h/o ESBL and ID consulted. Switch to daptomycin on 11/01. CT AP with PO contrast ordered given history of emphysematous cystitis with microperforations concerning for enterovesical fistula which showed diffucse anasarca and edema, no free air in the bladder. CT abdomen with rectal contrast: More prominent diffuse anasarca and edema, no free air or contrast in the bladder lumen to diagnose fistula, cannot exclude acute uncomplicated colitis. Repeat CT abdomen with rectal contrast done 1 11/01, limited rectal contrast was able to be retained in the patient and evaluation for enterovesical fistula is suboptimal, no obvious secondary changes to suggest fistula.Repeat CT with rectal contrast was suboptimal as patient could not hold the contrast long enough, discussed with ID, no plans to repeat study, patient needs to complete total 7 days of daptomycin. Plan to go to [facility], midline ordered, referral sent 11/04 Readmission prevention meeting 10/30:. Patient recurrently misses her Monday hemodialysis, sometimes monday hemodialysis, hemodialysis transportation is arranged. Due to ongoing diarrhea, CT findings suggestive of possible colitis and transverse colon, GI consulted. Cdiff ordered, negative, patient can continue Imodium, Questran, if diarrhea continues after antibiotic use can follow-up with gastroenterology, otherwise cleared from GI for discharge. Patient plans to get IV and oral opiates during her admissions, she does have history of methamphetamine abuse, concern for opioid use disorder, pain medicine consulted. No changes recommended. Psychiatry consulted to evaluate for depression possibly contributing to noncompliance. Added Zoloft 25 nightly, outpatient mental health/psychiatry Discussed at length option of being discharged to subacute rehab, patient is considering still, understand that she will need IV antibiotics at discharge, previously was discharged with midline that only lasted 1 day per patient. Pertinent Imaging: No new imaging Subjective: No significant changes, complains of generalized fatigue, still has loose bowel movements Pertinent positives and negatives as discussed above, a complete review of systems was performed and all other systems are negative. Vitals Signs Reviewed. General: [nontoxic], [no distress], [appears at stated age], chronically ill appearing Derm: [warm], [dry] Head: [atraumatic], [normocephalic], [symmetric] Eyes: [EOMI], [no lid lag], [anicteric sclera] Mouth: [no lip lesion], [mucus membranes moist] Cardiovascular: [S1S2 reg], [no murmur] Lungs: [CTA bilateral], [no rhonchi, no rales] , [no accessory muscle use] Abdominal: [soft], [ nontender to palpation], [no guarding], [no appreciable organomegaly] Ext: [no gross muscle atrophy], [no edema], [no contractures] Neuro: [ CN II-XI grossly intact], [no focal neuro deficits] Psych: [Alert], [oriented], [appropriate affect] Data Reviewed Today: Pertinent Labs: Glucoses fairly controlled Assessment and Plan: [Chest pain, resolved. History of CAD with stenting, history of CABG, ACS ruled out CHF with EF 25 to 30%, not in acute exacerbation -Cardiology following, continue current medications, no need of invasive procedures, needs to be evaluated for ICD implantation ESRD on HD, -Continue HD per nephrology, hemodialysis 11/04 AM hx of ESBL E. coli emphysematous cystitis UTI, enterococ casseliflavus Acute on chronic diarrhea Possible colitis -Continue the medicine, ID following -Patient apparently did not initially rectal contrast for the CT, she was showi ng possible colitis -GI consulted. . Cdiff ordered, negative, patient can continue Imodium, Questra n, if diarrhea continues after antibiotic use can follow-up with gastroenterology, otherwise cleared from GI for discharge. -Repeat CT abdomen with rectal contrast done 11/01, limited rectal contrast was able to be retained in the patient and evaluation for enterovesical fistula is suboptimal, no obvious secondary changes to suggest fistula. Discussed with ID, no plans for another rectal contrast CT, patient is to complete 7 days of daptomycin SOT 11/01 -Midline ordered History of methamphetamine use, concern for opioid use disorder, consulted pain- no changes Noncompliance with HD, concern for depression: Consulted psychiatry COPD not in exacerbation: Continue DuoNebs, Symbicort, Spiriva GERD: Continue Protonix Hypothyroidism: Continue Synthroid 176 Hyperlipidemia: Continue Lipitor Hypertension: Metoprolol, torsemide, Entresto Type II DM with hyperglycemia Basal bolus with Levemir 9 units and mealtime 3 units, continue SSI [Resolved:] DKA DVT ppx: Heparin Code status: Code Anticipated discharge place subacute rehab, referral sent, medically stable for discharge Objective - Vital Signs Vital signs: Vital Signs Temp 98.7 F 11/04/24 11:47 Pulse 65 11/04/24 11:47 Resp 14 11/04/24 11:47 BP 100/55 11/04/24 11:47 Pulse Ox 97 11/04/24 11:47 FiO2 Intake & Output 11/03/24 11/04/24 11/04/24 18:59 06:59 18:59 Intake Total 478 Balance 478 Weight 62.1 kg Intake: Oral 478 Other: Voiding Method Bedside Commode Toilet Toilet # Voids 0 1 - Labs CBC & Chem 7: 11/03/24 08:35 11/03/24 08:35 Labs: Abnormal Lab Results - Last 24 Hours (Table) 11/03/24 11/03/24 11/04/24 Range/Units 16:38 20:10 01:49 POC Glucose (mg/dL) 187 H 241 H 204 H (70-110) mg/dL 11/04/24 11/04/24 Range/Units 05:49 11:24 POC Glucose (mg/dL) 119 H 129 H (70-110) mg/dL
[2024-11-04 16:28] LABS: Glucose,Whole Blood 114 mg/dL (70-110)
[2024-11-04 19:55] LABS: Glucose,Whole Blood 191 mg/dL (70-110)
[2024-11-05 02:02] LABS: Glucose,Whole Blood 158 mg/dL (70-110)
[2024-11-05 06:09] LABS: Glucose,Whole Blood 308 mg/dL (70-110)
[2024-11-05 08:59] VITALS: TEMP 97.6
--- NOTE | 2024-11-05 09:23 | P.PN ---
Subjective Progress Note Date: 11/05/24 Principal diagnosis: Hospital Course: 59-year-old female with PMH of CAD with ischemic cardiomyopathy with EF of 15 to 20%, COPD, ESRD on dialysis MWF via R chest catheter, diabetes mellitus, fibromyalgia, GERD, hyperlipidemia, hypertension, and osteoarthritis presented to the emergency department for chest pain. Started on 9:30AM, woke her up from sleep. Pain is intermittent, pressure like in nature, left sided and radiates to the right arm and neck. Pain is associated with shortness of breath. No changes with movement or deep inspiration. Patient reports missing her Wed and Mon dialysis session due to diarrhea (ongoing for the past 2 months). She reports poor appetite and despite not eating much her blood glucose has been running high. She reports intermittent nausea and vomiting. Previously admitted from 09/13-09/20 for treatment of emphysematous cystitis with micorperforations, Urology recommended evaluation for enterovesical fistula at that time but patient refused. She was discharged to SNF on Ertapenem for 10 days. In the ED she underwent extensive evaluation: BP 139/66, HR 85, RR 20, T 97.4F, 100% on 2L NC. CBC, Coag panel, CMP significant for RBC 3.4, Hg 10.9, MCV 106.3, Na 126, Cl 90, bicarb 9, BUN 56, Cr 3.32, glu 681, Ca 8.2, alk phos 202, alb 3. Lipase 22. Trop 0.03. Acetone positive. ABG pH 7.31, pCO2 31. EKG sinus rhythm with interventricular conduction delay. CXR no acute process. Patient is admitted for further workup and management. Started on insulin drip and D5 1/2 NS with KCl IV for DKA. DKA resolved and she was transitioned to ISS. Troponins trended 0.03, 0.025, 0.024 and ACS was ruled out. Cardiology consulted, recommended Echo. TTE on 10/29 showed EF 25 to 30% with severely increased left ventricular diastolic volume, left ventricular systolic volume, inferoseptal dyskinesis, mild pulmonary hypertension RVSP 35 Patient with complaints of dysuria, started on Ertapenem for h/o ESBL and ID consulted. Switch to daptomycin on 11/01. CT AP with PO contrast ordered given history of emphysematous cystitis with microperforations concerning for enterovesical fistula which showed diffucse anasarca and edema, no free air in the bladder. CT abdomen with rectal contrast: More prominent diffuse anasarca and edema, no free air or contrast in the bladder lumen to diagnose fistula, cannot exclude acute uncomplicated colitis. Repeat CT abdomen with rectal contrast done 1 11/01, limited rectal contrast was able to be retained in the p atient and evaluation for enterovesical fistula is suboptimal, no obvious secondary changes to suggest fistula.Repeat CT with rectal contrast was suboptimal as patient could not hold the contrast long enough, discussed with ID, no plans to repeat study, patient needs to complete total 7 days of dapt omycin. Plan to go to [facility], midline ordered, referral sent 11/04 Patient seen and examined. She is currently sitting in her chair. Denies any concerns at this time. Awaiting placement Objective - Vital Signs Vital signs: Vital Signs Temp 97.6 F 11/05/24 08:58 Pulse 69 11/05/24 08:58 Resp 16 11/05/24 08:58 BP 128/84 11/05/24 08:58 Pulse Ox 100 11/05/24 08:58 FiO2 Intake & Output 11/04/24 11/05/24 11/05/24 18:59 06:59 18:59 Intake Total 1640 Output Total 1400 Balance 240 Weight 62.5 kg Intake: Oral 240 Hemodialysis 1400 Output: Hemodialysis 400 Hemodialysis Net Amount 1000 Other: Voiding Method Toilet Toilet # Voids 0 1 - Exam General: [nontoxic], [no distress], [appears at stated age], female, pleasant Derm: [warm], [dry] Head: [atraumatic], [normocephalic], [symmetric] Eyes: [EOMI], [no lid lag], [anicteric sclera] Mouth: [no lip lesion], [mucus membranes moist] Cardiovascular: [S1S2 reg], [no murmur] Lungs: [CTA bilateral], [no rhonchi, no rales] , [no accessory muscle use] Abdominal: [soft], [ nontender to palpation], [no guarding], [no appreciable organomegaly] Ext: [no gross muscle atrophy], [no edema], [no contractures] Neuro: Roving all extremity spontaneously Psych: [Alert], [oriented], [appropriate affect] Lines: Right IJ tunneled dialysis catheter - Labs CBC & Chem 7: 11/03/24 08:35 11/03/24 08:35 Labs: Abnormal Lab Results - Last 24 Hours (Table) 11/04/24 11/04/24 11/04/24 Range/Units 11:24 16:26 19:53 POC Glucose (mg/dL) 129 H 114 H 191 H (70-110) mg/dL 11/05/24 11/05/24 Range/Units 01:55 06:07 POC Glucose (mg/dL) 158 H 308 H (70-110) mg/dL Assessment and Plan Assessment: #) Chest pain with hx of cad s/p stent. outpatient f/u with cardiology for aicd consideration #) ESRD on iHD, continue dialysis as per nephrology #) HFrEF with levef of 25-30%, volume removal via uf as per nephrology. Continue entresto/toresemide #) Uti, Encococcus casseflacius. Continue iv daptomycin for 7 days #) Hx of methampintaine use with concern for opioid use disorder #) Noncompliance with iHD #) GERD continue pantoprazole #) COPD conytinue symbicort/spira #) Hyypothyroid dz continue levothryoxine #) Hld Continue atorvastatin #) Dm2 continue levemir with sliding scale insulin dvt ppx: heparin Sufficeintly medically acceptable for d/c planning Time with Patient: Greater than 30
--- NOTE | 2024-11-05 10:10 | P.PN ---
Subjective Patient is seen in follow-up for end-stage renal disease. Tolerated 1 L ultrafiltration yesterday. No active complaints. Vital signs are stable. General: No acute distress. HEENT: Head exam is unremarkable. On nasal cannula. LUNGS: No audible rhonchi or wheezes. HEART: Rate and Rhythm are regular. ABDOMEN: Nontender. EXTREMITITES: 1+ edema. Objective - Vital Signs Vital signs: Vital Signs Temp 97.6 F 11/05/24 08:58 Pulse 69 11/05/24 08:58 Resp 16 11/05/24 08:58 BP 128/84 11/05/24 08:58 Pulse Ox 100 11/05/24 08:58 FiO2 Intake & Output 11/04/24 11/05/24 11/05/24 18:59 06:59 18:59 Intake Total 1640 Output Total 1400 Balance 240 Weight 62.5 kg Intake: Oral 240 Hemodialysis 1400 Output: Hemodialysis 400 Hemodialysis Net Amount 1000 Other: Voiding Method Toilet Toilet Toilet # Voids 0 1 - Labs CBC & Chem 7: 11/03/24 08:35 11/03/24 08:35 Labs: Abnormal Lab Results - Last 24 Hours (Table) 11/04/24 11/04/24 11/04/24 Range/Units 11:24 16:26 19:53 POC Glucose (mg/dL) 129 H 114 H 191 H (70-110) mg/dL 11/05/24 11/05/24 Range/Units 01:55 06:07 POC Glucose (mg/dL) 158 H 308 H (70-110) mg/dL Assessment and Plan Plan: Assessment: 1. End-stage renal disease maintained on hemodialysis on Monday schedule. 2. Cardiomyopathy ejection fraction 15 to 20%. 3. Diabetes mellitus. 4. Coronary artery disease status post CABG. 6. Volume overload. Improved with ultrafiltration. 7. Hypervolemic hyponatremia. 8. ESBL emphysematous cystitis on antibiotics. Urine culture positive for group D Enterococcus. Plan: Hemodialysis tomorrow. Maintain torsemide.
[2024-11-05 10:26] LABS: Glucose,Whole Blood 158 mg/dL (70-110)
[2024-11-05 10:42] LABS: Glucose,Whole Blood 135 mg/dL (70-110)
[2024-11-05 11:06] VITALS: BP 110/65; PULSE 67; RESP 17
--- NOTE | 2024-11-05 12:59 | P.DS ---
Providers Date of admission: 10/27/24 13:52 Attending physician: Aubrey Victoria Consults: 10/27/24 14:25 Consult Physician Urgent Consulting Provider: Marcelino Davies Consult Reason/Comments: esrd on hd Do you want consulting provider notified?: Yes 10/28/24 09:15 Consult Physician Routine Consulting Provider: Hilda Sultana Consult Reason/Comments: ESBL UTI Do you want consulting provider notified?: Yes 10/30/24 15:19 Consult Physician Routine Consulting Provider: Roslyn Sands Consult Reason/Comments: acute on chronic diarrhea, readmissions Do you want consulting provider notified?: Yes 10/30/24 15:20 Consult Physician Routine Consulting Provider: Victorino Looney Consult Reason/Comments: depression, noncompliance HD, readmissions Do you want consulting provider notified?: Yes 10/30/24 15:22 Consult Physician Routine Consulting Provider: Elaine Winters Consult Reason/Comments: concern for opiod use disorder, hx of methamph use Do you want consulting provider notified?: Yes [facility] Course: Hospital Course: 59-year-old female with PMH of CAD with ischemic cardiomyopathy with EF of 15 to 20%, COPD, ESRD on dialysis MWF via R chest catheter, diabetes mellitus, fibromyalgia, GERD, hyperlipidemia, hypertension, and osteoarthritis presented to the emergency department for chest pain. Started on 9:30AM, woke her up from sleep. Pain is intermittent, pressure like in nature, left sided and radiates to the right arm and neck. Pain is associated with shortness of breath. No changes with movement or deep inspiration. Patient reports missing her Wed and Mon dialysis session due to diarrhea (ongoing for the past 2 months). She reports poor appetite and despite not eating much her blood glucose has been running high. She reports intermittent nausea and vomiting. Previously admitted from 09/13-09/20 for treatment of emphysematous cystitis with micorperforations, Urology recommended evaluation for enterovesical fistula at that time but patient refused. She was discharged to SNF on Ertapenem for 10 days. In the ED she underwent extensive evaluation: BP 139/66, HR 85, RR 20, T 97.4F, 100% on 2L NC. CBC, Coag panel, CMP significant for RBC 3.4, Hg 10.9, MCV 106.3, Na 126, Cl 90, bicarb 9, BUN 56, Cr 3.32, glu 681, Ca 8.2, alk phos 202, alb 3. Lipase 22. Trop 0.03. Acetone positive. ABG pH 7.31, pCO2 31. EKG sinus rhythm with interventricular conduction delay. CXR no acute process. Patient is admitted for further workup and management. Started on insulin drip and D5 1/2 NS with KCl IV for DKA. DKA resolved and she was transitioned to ISS. Troponins trended 0.03, 0.025, 0.024 and ACS was ruled out. Cardiology consulted, recommended Echo. TTE on 10/29 showed EF 25 to 30% with severely increased left ventricular diastolic volume, left ventricular systolic volume, inferoseptal dyskinesis, mild pulmonary hypertension RVSP 35 Patient with complaints of dysuria, started on Ertapenem for h/o ESBL and ID consulted. Switch to daptomycin on 11/01. CT AP with PO contrast ordered given history of emphysematous cystitis with microperforations concerning for enterovesical fistula which showed diffucse anasarca and edema, no free air in the bladder. CT abdomen with rectal contrast: More prominent diffuse anasarca and edema, no free air or contrast in the bladder lumen to diagnose fistula, cannot exclude acute uncomplicated colitis. Repeat CT abdomen with rectal contrast done 1 11/01, limited rectal contrast was able to be retained in the patient and evaluation for enterovesical fistula is suboptimal, no obvious secon paul changes to suggest fistula.Repeat CT with rectal contrast was suboptimal as patient could not hold the contrast long enough, discussed with ID, no plans to repeat study, patient needs to complete total 7 days of daptomycin. [facility] Assessment: #) Chest pain with hx of cad s/p stent. outpatient f/u with cardiology for aicd consideration #) ESRD on iHD, continue dialysis as per nephrology #) HFrEF with levef of 25-30%, volume removal via uf as per nephrology. Continue entresto/toresemide #) Uti, Encococcus casseflacius. Continue iv daptomycin for 7 days via midline #) Hx of methampintaine use with concern for opioid use disorder #) Noncompliance with iHD #) GERD continue pantoprazole #) COPD conytinue symbicort/spira #) Hypothyroid dz continue levothryoxine #) Hld Continue atorvastatin #) Dm2 continue levemir with sliding scale insulin Patient Condition at Discharge: Fair Plan - Discharge Summary Discharge Rx Participant: No New Discharge Prescriptions: New DAPTOmycin [Cubicin] 250 mg IVPB Q24HR@1800 6 Days #6 each Ipratropium-Albuterol Nebulize [Duoneb 0.5 mg-3 mg/3 ml Soln] 3 ml INHALATION RT-QID PRN each PRN Reason: Shortness Of Breath Or Wheezing Isosorbide Mononitrate ER [Imdur] 30 mg PO DAILY tab Sertraline [Zoloft] 25 mg PO HS tab Midodrine [ProAmatine] 5 mg PO BID PRN tab PRN Reason: Blood Pressure - Low Cholestyramine (with Sugar) [Questran Packet] 4 gm PO BID@1000,1800 packet Continue traZODone HCL [Desyrel] 50 mg PO HS Aspirin EC [Ecotrin Low Dose] 81 mg PO DAILY Atorvastatin [Lipitor] 40 mg PO HS Acetaminophen Tab [Tylenol] 650 mg PO Q6H PRN PRN Reason: Fever And/ Or Pain Torsemide [Demadex] 40 mg PO DAILY #30 tab Metoprolol Succinate (ER) [Toprol XL] 25 mg PO DAILY #30 tab Loperamide [Imodium] 2 mg PO QID PRN cap PRN Reason: Diarrhea Sacubitril/Valsartan [Entresto 24 mg-26 mg Tablet] 1 tab PO BID Levothyroxine Sodium [Synthroid] 175 mcg PO DAILY Clopidogrel [Plavix] 75 mg PO DAILY tab Pantoprazole [Protonix] 40 mg PO AC-BRKFST tab Polyvinyl Alcohol/Povidone [Clear Eyes Natural Tears Drop] 1 drop BOTH EYES QID PRN PRN Reason: Dry Eye(S) Fluticasone/Umeclidin/Vilanter [Trelegy Ellipta 100-62.5-25] 1 puff INHALATION RT-DAILY Insulin Aspart [NovoLOG Flexpen] See Protocol SQ AC-TID Ondansetron Odt [Zofran ODT] 4 mg PO Q8HR PRN #10 tab PRN Reason: Nausea Insulin Glargine,Hum.rec.anlog [Lantus Solostar Pen] 6 units SQ DAILY@1100 Discontinued Midodrine [ProAmatine] 5 mg PO BID PRN PRN Reason: Blood Pressure - Low Nitrofurantoin Monohyd/M-Cryst [Macrobid] 100 mg PO Q12HR #14 cap Ipratropium-Albuterol Nebulize [Duoneb 0.5 mg-3 mg/3 ml Soln] 3 ml INHALATION RT-Q2H PRN each PRN Reason: Shortness Of Breath Or Wheezing Ipratropium Bradner [Atrovent Hfa] 2 puff INHALATION RT-Q6H PRN PRN Reason: Shortness Of Breath Discharge Medication List Levothyroxine Sodium [Synthroid] 175 mcg PO DAILY 02/02/22 [History] traZODone HCL [Desyrel] 50 mg PO HS 02/09/24 [History] Clopidogrel [Plavix] 75 mg PO DAILY tab 03/18/24 [Rx] Pantoprazole [Protonix] 40 mg PO AC-BRKFST tab 03/18/24 [Rx] Acetaminophen Tab [Tylenol] 650 mg PO Q6H PRN 06/30/24 [History] Aspirin EC [Ecotrin Low Dose] 81 mg PO DAILY 06/30/24 [History] Atorvastatin [Lipitor] 40 mg PO HS 06/30/24 [History] Fluticasone/Umeclidin/Vilanter [Trelegy Ellipta 100-62.5-25] 1 puff INHALATION RT-DAILY 06/30/24 [History] Polyvinyl Alcohol/Povidone [Clear Eyes Natural Tears Drop] 1 drop BOTH EYES QID PRN 06/30/24 [History] Metoprolol Succinate (ER) [Toprol XL] 25 mg PO DAILY #30 tab 07/05/24 [Rx] Torsemide [Demadex] 40 mg PO DAILY #30 tab 07/05/24 [Rx] Insulin Aspart [NovoLOG Flexpen] See Protocol SQ AC-TID 08/26/24 [History] Loperamide [Imodium] 2 mg PO QID PRN cap 09/20/24 [Rx] Sacubitril/Valsartan [Entresto 24 mg-26 mg Tablet] 1 tab PO BID 10/18/24 [History] Ondansetron Odt [Zofran ODT] 4 mg PO Q8HR PRN #10 tab 10/25/24 [Rx] Insulin Glargine,Hum.rec.anlog [Lantus Solostar Pen] 6 units SQ DAILY@1100 10/27/24 [History] Cholestyramine (with Sugar) [Questran Packet] 4 gm PO BID@1000,1800 packet [Rx] DAPTOmycin [Cubicin] 250 mg IVPB Q24HR@1800 6 Days #6 each 11/05/24 [Rx] Ipratropium-Albuterol Nebulize [Duoneb 0.5 mg-3 mg/3 ml Soln] 3 ml INHALATION RT-QID PRN each 11/05/24 [Rx] Isosorbide Mononitrate ER [Imdur] 30 mg PO DAILY tab 11/05/24 [Rx] Midodrine [ProAmatine] 5 mg PO BID PRN tab 11/05/24 [Rx] Sertraline [Zoloft] 25 mg PO HS tab 11/05/24 [Rx] Follow up Appointment(s)/Referral(s): Papi Saavedra DO [Primary Care Provider] - 1-2 days Roslyn Sands MD [STAFF PHYSICIAN] - As Needed Discharge Disposition: TRANSFER TO SNF/ECF
--- NOTE | 2024-11-05 13:39 | P.PN ---
Subjective Progress Note Date: 11/04/24 Principal diagnosis: Reason for follow-up is a urinary tract infection Patient is a 59-year-old female with a past medical history significant for coronary artery disease diabetes mellitus fibromyalgia reflux hypertension hyperlipidemia PR end-stage renal disease on dialysis still makes some urine he was recently admitted to this facility with emphysematous cystitis, urine culture positive for ESBL E. coli now presented back to the hospital chest pain also having some nausea vomiting suprapubic pain and hematuria. On today's evaluation that is11/04/2024, patient has been afebrile, patient is breathing comfortably and is currently on 2 L nasal oxygen patient denies having any significant cough no chest pain, patient denies nausea vomiting or diarrhea and lower abdominal pain has decreased in intensity. Patient did have a lab draw today Objective - Vital Signs Vital signs: Vital Signs Temp 98 F 11/04/24 15:47 Pulse 66 11/04/24 15:47 Resp 14 11/04/24 15:47 BP 119/65 11/04/24 15:47 Pulse Ox 100 11/04/24 15:47 FiO2 Intake & Output 11/03/24 11/04/24 11/04/24 18:59 06:59 18:59 Intake Total 478 1400 Output Total 1400 Balance 478 0 Weight 62.1 kg Intake: Oral 478 Hemodialysis 1400 Output: Hemodialysis 400 Hemodialysis Net Amount 1000 Other: Voiding Method Bedside Commode Toilet Toilet # Voids 0 1 0 - Exam Middle-age female up in the chair in no distress Unlabored breathing Awake alert oriented x 3 - Labs CBC & Chem 7: 11/03/24 08:35 11/03/24 08:35 Labs: Abnormal Lab Results - Last 24 Hours (Table) 11/03/24 11/04/24 11/04/24 Range/Units 20:10 01:49 05:49 POC Glucose (mg/dL) 241 H 204 H 119 H (70-110) mg/dL 11/04/24 11/04/24 Range/Units 11:24 16:26 POC Glucose (mg/dL) 129 H 114 H (70-110) mg/dL Assessment and Plan (1) History of infection due to ESBL Escherichia coli Current Visit: Yes Status: Acute Code(s): Z86.19 - PERSONAL HISTORY OF OTHER INFECTIOUS AND PARASITIC DISEASES SNOMED Code(s): 759498666 (2) UTI (urinary tract infection) Current Visit: No Status: Acute Code(s): N39.0 - URINARY TRACT INFECTION, SITE NOT SPECIFIED SNOMED Code(s): 64487220 Plan: 1patient with symptoms of nausea and vomiting suprapubic discomfort burning urine along with some blood in the urine concerning for cystitis in this patient who recently did have recent ESBL E. coli emphysematous cystitis CT abdominal pelvis this admission did not show any emphysematous cystitis, colovesicular fistula cannot be excluded subsequently did have a CT without contrast with concern for uncomplicated colitis patient did have attempted CT of the pelvis with rectal contrast to evaluate for any colovesical fistula however the patient was unable to hold the rectal contrast 2-patient urine culture currently growing vancomycin-resistant Enterococcus, patient has shown clinical improvement with daptomycin which will be continued to finish at least 7-day course of therapy Dictation was produced using [employer] dictation software. please excuse any gra mmatical, word or spelling errors. Time with Patient: Less than 30
--- NOTE | 2024-11-05 13:40 | P.PN ---
Subjective Progress Note Date: 11/05/24 Principal diagnosis: Reason for follow-up is a urinary tract infection Patient is a 59-year-old female with a past medical history significant for coronary artery disease diabetes mellitus fibromyalgia reflux hypertension hyperlipidemia [place] end-stage renal disease on dialysis still makes some urine he was recently admitted to this facility with emphysematous cystitis, urine culture positive for ESBL E. coli now presented back to the hospital chest pain also having some nausea vomiting suprapubic pain and hematuria. On today's evaluation that is 11/05/2024, Patient is afebrile this morning patient denies having any chest pain shortness of breath or cough, the patient is currently on 2 L current oxygen, patient denies any abdominal pain no diarrhea no nausea no vomiting No new lab has been obtained today Objective - Vital Signs Vital signs: Vital Signs Temp 97.6 F 11/05/24 08:58 Pulse 67 11/05/24 11:05 Resp 17 11/05/24 11:05 BP 110/65 11/05/24 11:05 Pulse Ox 98 11/05/24 11:05 FiO2 Intake & Output 11/04/24 11/05/24 11/05/24 18:59 06:59 18:59 Intake Total 1640 Output Total 1400 Balance 240 Weight 62.5 kg Intake: Oral 240 Hemodialysis 1400 Output: Hemodialysis 400 Hemodialysis Net Amount 1000 Other: Voiding Method Toilet Toilet Toilet # Voids 0 1 - Exam Middle-age female up in the chair in no distress Unlabored breathing Awake alert oriented x 3 - Labs CBC & Chem 7: 11/03/24 08:35 11/03/24 08:35 Labs: Abnormal Lab Results - Last 24 Hours (Table) 11/04/24 11/04/24 11/05/24 Range/Units 16:26 19:53 01:55 POC Glucose (mg/dL) 114 H 191 H 158 H (70-110) mg/dL 11/05/24 11/05/24 11/05/24 Range/Units 01:55 06:07 10:38 POC Glucose (mg/dL) 158 H 308 H 135 H (70-110) mg/dL Assessment and Plan (1) History of infection due to ESBL Escherichia coli Current Visit: Yes Status: Acute Code(s): Z86.19 - PERSONAL HISTORY OF OTHER INFECTIOUS AND PARASITIC DISEASES SNOMED Code(s): 198049243 (2) UTI (urinary tract infection) Current Visit: No Status: Acute Code(s): N39.0 - URINARY TRACT INFECTION, SITE NOT SPECIFIED SNOMED Code(s): 87433599 Plan: 1patient with symptoms of nausea and vomiting suprapubic discomfort burning urine along with some blood in the urine concerning for cystitis in this patient who recently did have recent ESBL E. coli emphysematous cystitis CT abdominal pelvis this admission did not show any emphysematous cystitis, colovesicular fistula cannot be excluded subsequently did have a CT without contrast with concern for uncomplicated colitis patient did have attempted CT of the pelvis with rectal contrast to evaluate for any colovesical fistula however the patient was unable to hold the rectal contrast 2-patient urine culture currently growing vancomycin-resistant Enterococcus, patient has shown clinical improvement with daptomycin which will be continued, patient is currently waiting for placement to get a midline Dictation was produced using [employer] dictation software. please excuse any grammatical, word or spelling errors. Time with Patient: Less than 30
[2024-11-05 16:23] LABS: Glucose,Whole Blood 152 mg/dL (70-110)
== END 2024-11-05 16:53 | DRG 637 ==
LOC: EC 11:14 → 3SCARD 13:52
PROVIDERS: ADMIT Student in an Organized Health Care Education/Training Program; ATTEND Student in an Organized Health Care Education/Training Program
PROC: 5A1D70Z Performance of Urinary Filtration, Intermittent, Less than 6 Hours Per Day (ICD-10-PCS; principal; 2024-10-28)
DX: E11.10 Type 2 diabetes mellitus with ketoacidosis without coma (principal); N18.6 End stage renal disease; I13.2 Hypertensive heart and chronic kidney disease with heart failure and with stage 5 chronic kidney disease, or end stage renal disease; E87.0 Hyperosmolality and hypernatremia; D69.6 Thrombocytopenia, unspecified; I27.20 Pulmonary hypertension, unspecified; D63.1 Anemia in chronic kidney disease; Z99.2 Dependence on renal dialysis; E03.9 Hypothyroidism, unspecified; E11.22 Type 2 diabetes mellitus with diabetic chronic kidney disease; F10.20 Alcohol dependence, uncomplicated; F32.A Depression, unspecified; I50.22 Chronic systolic (congestive) heart failure; E87.1 Hypo-osmolality and hyponatremia; Z16.12 Extended spectrum beta lactamase (ESBL) resistance; N30.81 Other cystitis with hematuria; Z79.890 Hormone replacement therapy; E78.5 Hyperlipidemia, unspecified; E87.5 Hyperkalemia; F17.210 Nicotine dependence, cigarettes, uncomplicated; I25.5 Ischemic cardiomyopathy; K52.9 Noninfective gastroenteritis and colitis, unspecified; M79.7 Fibromyalgia; F41.9 Anxiety disorder, unspecified; K21.9 Gastro-esophageal reflux disease without esophagitis; T36.95XA Adverse effect of unspecified systemic antibiotic, initial encounter; E87.8 Other disorders of electrolyte and fluid balance, not elsewhere classified; I25.10 Atherosclerotic heart disease of native coronary artery without angina pectoris; I25.2 Old myocardial infarction; I44.7 Left bundle-branch block, unspecified; Z71.6 Tobacco abuse counseling; Z79.02 Long term (current) use of antithrombotics/antiplatelets; Z79.4 Long term (current) use of insulin; Z79.82 Long term (current) use of aspirin; Z79.84 Long term (current) use of oral hypoglycemic drugs; Z79.899 Other long term (current) drug therapy; Z82.49 Family history of ischemic heart disease and other diseases of the circulatory system; Z86.19 Personal history of other infectious and parasitic diseases; Z86.73 Personal history of transient ischemic attack (TIA), and cerebral infarction without residual deficits; Z90.710 Acquired absence of both cervix and uterus; Z91.158 Patient's noncompliance with renal dialysis for other reason; Z91.51 Personal history of suicidal behavior; Z95.1 Presence of aortocoronary bypass graft; Z95.5 Presence of coronary angioplasty implant and graft; Z88.2 Allergy status to sulfonamides
CPT/HCPCS: 36415; 36600; 71046; 74176; 80048; 80051; 80053; 81001; 82009; 82565; 82805; 82947; 83036; 83690; 83735; 83880; 84100; 84484; 84520; 85025; 85027; 85610; 85730; 87077; 87086; 87186; 87324; 87636; 90935; 93005; 93308; 94760; 96365; 96366; 96368; 96375; 96376; 99291

== ENCOUNTER 2025-01-17 11:35 | Inpatient (IN) | payer BC, MEDICARE, OTHER ==
--- NOTE | 2025-01-17 12:44 | ED ---
General Adult HPI - General Chief complaint: Weakness Stated complaint: Weakness Time Seen by Provider: 01/17/25 12:13 Source: patient Mode of arrival: ambulatory Limitations: no limitations - History of Present Illness Initial comments: Patient is a 59-year-old female history ESRD on dialysis, Monday, CAD, COPD patient for generalized weakness. Ongoing x 5 days. Missed dialysis on Monday and today due to not feeling well. States she has had 2 episodes of nonbloody nonbilious emesis once yesterday and once the day before. Denies abdominal pain though states she feels like her stomach is upset. She does still make urine denies dysuria or hematuria. States that she always has diarrhea, denies bloody or melanotic stools. She endorses a dry nonproductive cough but denies hemoptysis. Denies runny nose or sore throat. States she has been dealing with a pressure-like headache within her head for 2 weeks. It was not sudden in onset nor was it the worst headache of her life. She states she does not usually get headaches. Denies sudden changes in vision numbness or focal weakness. Denies chest pain but states that she does feel short of breath over the course of the last 5 days as well particularly with ambulation. Denies any rashes. - Related Data Home Medications Medication Instructions Recorded Confirmed Levothyroxine Sodium [Synthroid] 175 mcg PO DAILY 02/02/22 01/17/25 traZODone HCL [Desyrel] 50 mg PO HS 02/09/24 01/17/25 Acetaminophen Tab [Tylenol] 650 mg PO Q6H PRN 06/30/24 01/17/25 Aspirin EC [Ecotrin Low Dose] 81 mg PO DAILY 06/30/24 01/17/25 Atorvastatin [Lipitor] 40 mg PO DAILY 06/30/24 01/17/25 Fluticasone/Umeclidin/Vilanter 1 puff INHALATION RT-DAILY 06/30/24 01/17/25 [Trelegy Ellipta 100-62.5-25] Insulin Aspart [NovoLOG Flexpen] See Protocol SQ AC-TID 08/26/24 01/17/25 Sacubitril/Valsartan [Entresto 24 1 tab PO BID 10/18/24 01/17/25 mg-26 mg Tablet] Insulin Glargine,Hum.rec.anlog 12 - 15 units SQ DAILY@1300 10/27/24 01/17/25 [Lantus Solostar Pen] Diphenox-Atrop 2.5-0.025 mg 1 tab PO DIRECTED 01/17/25 01/17/25 [Lomotil] Ipratropium [place] [Atrovent Hfa] 2 puff INHALATION RT-Q6H PRN 01/17/25 01/17/25 Ipratropium-Albuterol Nebulize 3 ml INHALATION RT-Q6H PRN 01/17/25 01/17/25 [Duoneb 0.5 mg-3 mg/3 ml Soln] Metoprolol Succinate (ER) [Toprol 50 mg PO DAILY 01/17/25 01/17/25 Xl] Ondansetron [Zofran] 4 mg PO Q8H PRN 01/17/25 01/17/25 Tamsulosin [Flomax] 0.4 mg PO HS 01/17/25 01/17/25 Previous Rx's Medication Instructions Recorded Torsemide [Demadex] 40 mg PO DAILY #30 tab 07/05/24 Loperamide [Imodium] 2 mg PO QID PRN cap 09/20/24 Sertraline [Zoloft] 25 mg PO HS tab 11/05/24 Allergies Allergy/AdvReac Type Severity Reaction Status Date / Time Sulfa (Sulfonamide Allergy Rash/Hives Verified 01/17/25 15:23 Antibiotics) Review of Systems ROS Statement: Those systems with pertinent positive or pertinent negative responses have been documented in the HPI. ROS Other: All systems not noted in ROS Statement are negative. Past Medical History Past Medical History: Coronary Artery Disease (CAD), Chest Pain / Angina, Heart Failure, COPD, CVA/TIA, Diabetes Mellitus, Fibromyalgia, GERD/Reflux, Hyperli pidemia, Hypertension, Liver Disease, Myocardial Infarction (NV), Osteoarthritis (OA), Renal Disease, Thyroid Disorder Additional Past Medical History / Comment(s): NEUROPATHY BILATERAL FEET, DDD NECK AND LOWER BACK, hiatal hernia, states no need for BP med anymore(gets orth ostatic hypotension-has "medtronic heart loop monitor"), hx hepatitis as a kid, hx fractrured left wrist, hx stroke 03/03/22-problems with balance since. Last Myocardial Infarction Date:: 02/2024 History of Any Multi-Drug Resistant Organisms: ESBL, MRSA Date of last positivie culture/infection: 09/13/24-ESBL; 2018-MRSA MDRO Source:: ESBL-urine; MRSA-stomach Past Surgical History: Adenoidectomy, Back Surgery, Bladder Surgery, Hysterectomy, Orthopedic Surgery, Tonsillectomy, Tubal Ligation Additional Past Surgical History / Comment(s): Debridement right foot, PICC line placed and later removed, bladder suspension, exploratory laparotomy, right gr eat toe amputation, pins right in foot, cataracts removed, left wrist ORIF, loop heart monitor placed 02/2022. Past Anesthesia/Blood Transfusion Reactions: No Reported Reaction, Motion Sickness Additional Past Anesthesia/Blood Transfusion Reaction / Comment(s): . Type of Cardiac Device: Loop Past Psychological History: Anxiety, Depression Smoking Status: Former smoker Past Alcohol Use History: Occasional Past Drug Use History: Marijuana, Methamphetamine - Past Family History Sister(s) Family Medical History: Coronary Artery Disease (CAD) Mother Family Medical History: Pulmonary Embolus Additional Family Medical History / Comment(s): . Father Additional Family Medical History / Comment(s): at 26yrs old--accident at work General Exam - General Exam Comments Initial Comments: PE: CONSTITUTIONAL: No apparent distress, chronically ill-appearing SKIN: Warm, dry, no jaundice, hives or petechiae EYES: Pupils are equally round, extraocular movements intact without nystagmus, clear conjunctiva, non-icteric sclera HENT: Normocephalic, atraumatic, moist mucus membranes, oropharynx clear without exudates NECK: , Full range of motion, normal appearance PULMONARY: Clear to auscultation without wheezes, rhonchi, or rales, normal excursion, no accessory muscle use and no stridor CARDIOVASCULAR: Regular rate, rhythm, normal S1 and S2. No appreciated murmurs, rubs or gallops. Strong radial pulses with intact distal perfusion. No lower extremity edema GASTROINTESTINAL: Soft, active bowel sounds throughout, mild guarding/tenderness to palpation of the epigastrium and bilateral upper quadrants, non-distended, no palpable masses, no rebound No hepatosplenomegaly GENITOURINARY: MUSCULOSKELETAL: Extremities have no gross deformity, no edema, redness, or swelling. NEUROLOGIC:_a/o x 3, GCS 15, normal mentation and speech. Moves all extremities x 4 without motor or sensory deficit PSYCHIATRIC:_normal mood and affect, thought process is clear and linear Limitations: no limitations Course Vital Signs 01/17/25 01/17/25 01/17/25 12:01 19:19 20:29 Temperature 99.9 F H 97.1 F L Pulse Rate 80 89 Pulse Rate [ 67 Process Trainer ] Respiratory 17 16 18 Rate Blood Pressure 143/67 150/73 Blood Pressure 135/66 [Right Arm] O2 Sat by Pulse 94 L 94 L Oximetry 01/17/25 22:15 Temperature 100.3 F H Pulse Rate 87 Pulse Rate [ Process Trainer ] Respiratory 16 Rate Blood Pressure 132/65 Blood Pressure [Right Arm] O2 Sat by Pulse 95 Oximetry EKG Findings - EKG Comments: EKG Findings:: Sinus rhythm, rate 73 bpm NH interval 186 ms QT/QTc 46/42 ms, borderline left axis deviation, left bundle branch block, no significant ST elevations or depressions Medical Decision Making - Medical Decision Making Was pt. sent in by a medical professional or institution (Dr. PA, MARKETING COPYWRITER, urgent care, hospital, or prison...) When possible be specific @ -No Did you speak to anyone other than the patient for history (EMS, parent, family, police, friend...)? What history was obtained from this source @ -No Did you review nursing and triage notes (agree or disagree)? Why? @ -I reviewed nursing and triage notes-disagree, the triage note states patient has had malaise throughout 1 day she states this has been ongoing for about 5 days Were old charts reviewed (outside hosp., previous admission, EMS record, old EKG, old radiological studies, urgent care reports/EKG's, prison records)? Report findings @ -Medical records reviewed Differential Diagnosis (chest pain, altered mental status, abdominal pain women, abdominal pain men, vaginal bleeding, weakness, fever, dyspnea, syncope, headache, dizziness, GI bleed, back pain, seizure, CVA, palpatations, mental health, musculoskeletal)? @Differential Weakness: Hypoglycemia, shock, sepsis, hyponatremia, anemia, infection, NV, electrolyte abnormality, adverse medicine reaction, overdose, stroke, this is not meant to be an all-inclusive list. EKG interpreted by me (3pts min.). @ -As above X-rays interpreted by me (1pt min.). @ I personally reviewed CXR- dialysis catheter appears to be in appropriate position, mild cardiomegaly, no obvious consolidations, radiologist notes trace bilateral pleural effusions, agree with radiologist interpretation CT interpreted by me (1pt min.). Personally reviewed CT brain, I see no evidence of hemorrhage or mass effect, I agree with radiologist interpretation U/S interpreted by me (1pt. min.). @ -None done What testing was considered but not performed or refused? (CT, X-rays, U/S, labs)? Why? @ -None What meds were considered but not given or refused? Why? @ -None Did you discuss the management of the patient with other professionals ( professionals i.e. , PA, MARKETING COPYWRITER, lab, RT, psych nurse, social media strategist, scada operator, teacher, credit risk officer, shoe caser)? Give summary @ -No Was smoking cessation discussed for >3mins.? @ -No Was critical care preformed (if so, how long)? @ -No Were there social determinants of health that impacted care today? How? (Homelessness, low income, unemployed, alcoholism, drug addiction, transportation, low edu. Level, literacy, decrease access to med. care, [facility], rehab)? @ -No Was there de-escalation of care discussed even if they declined (Discuss DNR or withdrawal of care, Hospice)? @ -No What co-morbidities impacted this encounter? (DM, HTN, Smoking, COPD, CAD, Cancer, CVA, ARF, Chemo, Hep., AIDS, mental health diagnosis, sleep apnea, morbid obesity)? @ -ESRD on dialysis, COPD Was patient admitted / discharged? Hospital course, mention meds given and route, prescriptions, significant lab abnormalities, going to OR and other pertinent info. @ -Admission -patient is a 67 y/o female complex past medical history presenting for generalized weakness and malaise. Missed 2 rounds dialysis this week. On my assessment vital signs on arrival temp 99.9 degrees, heart rate 80, RR 17, blood pressure 143/67 SPO2 94%. Lungs are clear to auscultation bilaterally, she has minimal epigastric and bilateral upper quadrant tenderness to palpation. Endorses 2 weeks MIRAMONTES without focal neurologic deficits. Plan for broad workup given complex past medical hx, will include BNP, troponin though I suspect these will be elevated due to patient's history ESRD on dialysis, regardless, CBC CMP, Phos, magnesium levels, chest x-ray. As patient endorsed new headaches, will obtain CT brain, she will be given Zofran for nausea and Tylenol for headache. Labs were significant for troponin elevation 0.075, BNP elevation ~33215 and hypomagnesemia mag 1.5. Ordered replacement magnesium. UA pending. patient will need to be admitted for dialysis, possibly PT/OT. Pt agreeable with plan for admission. Case discussed with Dr. Victoria who kindly accepted pt for admission. Undiagnosed new problem with uncertain prognosis? @ -No Drug Therapy requiring intensive monitoring for toxicity (Heparin, Nitro, Insulin, Cardizem)? @ -No Were any procedures done? @ -No Diagnosis/symptom? @generalized weakness, hypomagnesemia, elevated troponin Acute, or Chronic, or Acute on Chronic? @acute Uncomplicated (without systemic symptoms) or Complicated (systemic symptoms)? @ -complicated Side effects of treatment? @ -No Exacerbation, Progression, or Severe Exacerbation? @ -No Poses a threat to life or bodily function? How? (Chest pain, USA, NV, pneumonia, PE, COPD, DKA, ARF, appy, cholecystitis, CVA, Diverticulitis, Homicidal, Suicidal, threat to staff... and all critical care pts) @Potentially - Lab Data Result diagrams: 01/20/25 05:27 01/21/25 08:26 Lab Results 01/17/25 01/17/25 01/17/25 Range/Units 12:43 12:49 12:49 WBC 9.93 (4.50-10.00) 10*3/uL RBC 3.01 L (4.10-5.20) 10*6/uL Hgb 10.2 L (12.0-15.0) g/dL Hct 30.8 L (37.2-46.3) % MCV 102.3 H (80.0-97.0) fL MCH 33.9 H (27.0-32.0) pg MCHC 33.1 (32.0-37.0) g/dL Plt Count 241 (140-440) 10*3/uL MPV 9.4 L (9.5-12.2) fL Immature Gran % (Auto) 0.4 % Neutrophils % 82.5 % Lymphocytes % 9.7 % Monocytes % 5.3 % Eosinophils % 1.8 % Basophils % 0.3 % Immature Gran # 0.04 (0.00-0.04) 10*3/uL Neutrophils # 8.19 H (1.80-7.70) 10*3/uL Lymphocytes # 0.96 (0.90-5.00) 10*3/uL Monocytes # 0.53 (0.20-1.00) 10*3/uL Eosinophils # 0.18 (0.04-0.35) 10*3/uL Basophils # 0.03 (0.00-0.10) 10*3/uL PT 11.5 (10.0-12.5) sec INR 1.0 (<1.2) APTT 25.5 (22.0-30.0) sec Sodium (137-145) mmol/L Potassium (3.5-5.1) mmol/L Chloride (98-107) mmol/L Carbon Dioxide (22-30) mmol/L Anion Gap mmol/L BUN (7-17) mg/dL Creatinine (0.52-1.04) mg/dL Est GFR (CKD-EPI)AfAm (>60 ml/min/1.73 sqM) Est GFR (CKD-EPI)NonAf (>60 ml/min/1.73 sqM) Glucose (74-99) mg/dL Plasma Lactic Acid Ketan (0.7-2.0) mmol/L Calcium (8.4-10.2) mg/dL Ionized Calcium Broder[place] (4.5-5.3) mg/dL Phosphorus (2.5-4.5) mg/dL Magnesium (1.6-2.3) mg/dL Total Bilirubin (0.2-1.3) mg/dL AST (14-36) U/L ALT (4-34) U/L Alkaline Phosphatase (38-126) U/L Troponin I (0.000-0.034) ng/mL NT-Pro-B Natriuret Pep pg/mL Total Protein (6.3-8.2) g/dL Albumin (3.5-5.0) g/dL Lipase (23-300) U/L Procalcitonin (0.02-0.50) ng/mL Urine Color Urine Appearance (Clear) Urine pH (5.0-8.0) Ur Specific [place] (1.001-1.035) Urine Protein (Negative) Urine Glucose (UA) (Negative) Urine Ketones (Negative) Urine Blood (Negative) Urine Nitrite (Negative) Urine Bilirubin (Negative) Urine Urobilinogen (<2.0) mg/dL Ur Leukocyte Esterase (Negative) Urine WBC (0-5) /hpf Urine WBC Clumps (None) /hpf Ur Squamous Epith Cells (0-4) /hpf Hep Bs Antigen (Nonreactive) Hep Bs Antibody (Negative) Hep Bs Antibody, Quant mIU/mL Influenza Type A (PCR) Not Detected (Not Detectd) Influenza Type B (PCR) Not Detected (Not Detectd) RSV (PCR) Not Detected (Not Detectd) SARS-CoV-2 (PCR) Not Detected (Not Detectd) 01/17/25 01/17/25 01/17/25 Range/Units 12:49 12:49 16:10 WBC (4.50-10.00) 10*3/uL RBC (4.10-5.20) 10*6/uL Hgb (12.0-15.0) g/dL Hct (37.2-46.3) % MCV (80.0-97.0) fL MCH (27.0-32.0) pg MCHC (32.0-37.0) g/dL Plt Count (140-440) 10*3/uL MPV (9.5-12.2) fL Immature Gran % (Auto) % Neutrophils % % Lymphocytes % % Monocytes % % Eosinophils % % Basophils % % Immature Gran # (0.00-0.04) 10*3/uL Neutrophils # (1.80-7.70) 10*3/uL Lymphocytes # (0.90-5.00) 10*3/uL Monocytes # (0.20-1.00) 10*3/uL Eosinophils # (0.04-0.35) 10*3/uL Basophils # (0.00-0.10) 10*3/uL PT (10.0-12.5) sec INR (<1.2) APTT (22.0-30.0) sec Sodium 133 L 131 L (137-145) mmol/L Potassium 4.2 4.3 (3.5-5.1) mmol/L Chloride 97 L 99 (98-107) mmol/L Carbon Dioxide 25 22 (22-30) mmol/L Anion Gap 11 10 mmol/L BUN 53 H 54 H (7-17) mg/dL Creatinine 2.85 H 2.91 H (0.52-1.04) mg/dL Est GFR (CKD-EPI)AfAm 20 19 (>60 ml/min/1.73 sqM) Est GFR (CKD-EPI)NonAf 17 17 (>60 ml/min/1.73 sqM) Glucose 199 H 197 H (74-99) mg/dL Plasma Lactic Acid Ketan (0.7-2.0) mmol/L Calcium 8.8 9.1 (8.4-10.2) mg/dL Ionized Calcium [place] 4.8 (4.5-5.3) mg/dL Phosphorus 3.8 (2.5-4.5) mg/dL Magnesium 1.5 L (1.6-2.3) mg/dL Total Bilirubin 0.7 (0.2-1.3) mg/dL AST 36 (14-36) U/L ALT 20 (4-34) U/L Alkaline Phosphatase 125 (38-126) U/L Troponin I 0.075 H* (0.000-0.034) ng/mL NT-Pro-B Natriuret Pep 06668 pg/mL Total Protein 6.7 (6.3-8.2) g/dL Albumin 3.5 (3.5-5.0) g/dL Lipase 18 L (23-300) U/L Procalcitonin (0.02-0.50) ng/mL Urine Color Urine Appearance (Clear) Urine pH (5.0-8.0) Ur Specific [place] (1.001-1.035) Urine Protein (Negative) Urine Glucose (UA) (Negative) Urine Ketones (Negative) Urine Blood (Negative) Urine Nitrite (Negative) Urine Bilirubin (Negative) Urine Urobilinogen (<2.0) mg/dL Ur Leukocyte Esterase (Negative) Urine WBC (0-5) /hpf Urine WBC Clumps (None) /hpf Ur Squamous Epith Cells (0-4) /hpf Hep Bs Antigen (Nonreactive) Hep Bs Antibody (Negative) Hep Bs Antibody, Quant mIU/mL Influenza Type A (PCR) (Not Detectd) Influenza Type B (PCR) (Not Detectd) RSV (PCR) (Not Detectd) SARS-CoV-2 (PCR) (Not Detectd) 01/17/25 01/17/25 01/17/25 Range/Units 16:10 16:10 16:10 WBC (4.50-10.00) 10*3/uL RBC (4.10-5.20) 10*6/uL Hgb (12.0-15.0) g/dL Hct (37.2-46.3) % MCV (80.0-97.0) fL MCH (27.0-32.0) pg MCHC (32.0-37.0) g/dL Plt Count (140-440) 10*3/uL MPV (9.5-12.2) fL Immature Gran % (Auto) % Neutrophils % % Lymphocytes % % Monocytes % % Eosinophils % % Basophils % % Immature Gran # (0.00-0.04) 10*3/uL Neutrophils # (1.80-7.70) 10*3/uL Lymphocytes # (0.90-5.00) 10*3/uL Monocytes # (0.20-1.00) 10*3/uL Eosinophils # (0.04-0.35) 10*3/uL Basophils # (0.00-0.10) 10*3/uL PT (10.0-12.5) sec INR (<1.2) APTT (22.0-30.0) sec Sodium (137-145) mmol/L Potassium (3.5-5.1) mmol/L Chloride (98-107) mmol/L Carbon Dioxide (22-30) mmol/L Anion Gap mmol/L BUN (7-17) mg/dL Creatinine (0.52-1.04) mg/dL Est GFR (CKD-EPI)AfAm (>60 ml/min/1.73 sqM) Est GFR (CKD-EPI)NonAf (>60 ml/min/1.73 sqM) Glucose (74-99) mg/dL Plasma Lactic Acid Ketan 0.9 (0.7-2.0) mmol/L Calcium (8.4-10.2) mg/dL Ionized Calcium Broder[place] (4.5-5.3) mg/dL Phosphorus (2.5-4.5) mg/dL Magnesium (1.6-2.3) mg/dL Total Bilirubin (0.2-1.3) mg/dL AST (14-36) U/L ALT (4-34) U/L Alkaline Phosphatase (38-126) U/L Troponin I (0.000-0.034) ng/mL NT-Pro-B Natriuret Pep pg/mL Total Protein (6.3-8.2) g/dL Albumin (3.5-5.0) g/dL Lipase (23-300) U/L Procalcitonin 1.52 H (0.02-0.50) ng/mL Urine Color Urine Appearance (Clear) Urine pH (5.0-8.0) Ur Specific [place] (1.001-1.035) Urine Protein (Negative) Urine Glucose (UA) (Negative) Urine Ketones (Negative) Urine Blood (Negative) Urine Nitrite (Negative) Urine Bilirubin (Negative) Urine Urobilinogen (<2.0) mg/dL Ur Leukocyte Esterase (Negative) Urine WBC (0-5) /hpf Urine WBC Clumps (None) /hpf Ur Squamous Epith Cells (0-4) /hpf Hep Bs Antigen Nonreactive (Nonreactive) Hep Bs Antibody (Negative) Hep Bs Antibody, Quant 3.5 mIU/mL Influenza Type A (PCR) (Not Detectd) Influenza Type B (PCR) (Not Detectd) RSV (PCR) (Not Detectd) SARS-CoV-2 (PCR) (Not Detectd) 01/17/25 Range/Units 16:15 WBC (4.50-10.00) 10*3/uL RBC (4.10-5.20) 10*6/uL Hgb (12.0-15.0) g/dL Hct (37.2-46.3) % MCV (80.0-97.0) fL MCH (27.0-32.0) pg MCHC (32.0-37.0) g/dL Plt Count (140-440) 10*3/uL MPV (9.5-12.2) fL Immature Gran % (Auto) % Neutrophils % % Lymphocytes % % Monocytes % % Eosinophils % % Basophils % % Immature Gran # (0.00-0.04) 10*3/uL Neutrophils # (1.80-7.70) 10*3/uL Lymphocytes # (0.90-5.00) 10*3/uL Monocytes # (0.20-1.00) 10*3/uL Eosinophils # (0.04-0.35) 10*3/uL Basophils # (0.00-0.10) 10*3/uL PT (10.0-12.5) sec INR (<1.2) APTT (22.0-30.0) sec Sodium (137-145) mmol/L Potassium (3.5-5.1) mmol/L Chloride (98-107) mmol/L Carbon Dioxide (22-30) mmol/L Anion Gap mmol/L BUN (7-17) mg/dL Creatinine (0.52-1.04) mg/dL Est GFR (CKD-EPI)AfAm (>60 ml/min/1.73 sqM) Est GFR (CKD-EPI)NonAf (>60 ml/min/1.73 sqM) Glucose (74-99) mg/dL Plasma Lactic Acid Ketan (0.7-2.0) mmol/L Calcium (8.4-10.2) mg/dL Ionized Calcium Broderick (4.5-5.3) mg/dL Phosphorus (2.5-4.5) mg/dL Magnesium (1.6-2.3) mg/dL Total Bilirubin (0.2-1.3) mg/dL AST (14-36) U/L ALT (4-34) U/L Alkaline Phosphatase (38-126) U/L Troponin I (0.000-0.034) ng/mL NT-Pro-B Natriuret Pep pg/mL Total Protein (6.3-8.2) g/dL Albumin (3.5-5.0) g/dL Lipase (23-300) U/L Procalcitonin (0.02-0.50) ng/mL Urine Color Dark Yellow Urine Appearance Turbid H (Clear) Urine pH 6.0 (5.0-8.0) Ur Specific [place] 1.021 (1.001-1.035) Urine Protein 2+ H (Negative) Urine Glucose (UA) Trace H (Negative) Urine Ketones Negative (Negative) Urine Blood Moderate H (Negative) Urine Nitrite Negative (Negative) Urine Bilirubin Negative (Negative) Urine Urobilinogen <2.0 (<2.0) mg/dL Ur Leukocyte Esterase Large H (Negative) Urine WBC >182 H (0-5) /hpf Urine WBC Clumps Many H (None) /hpf Ur Squamous Epith Cells 9 H (0-4) /hpf Hep Bs Antigen (Nonreactive) Hep Bs Antibody (Negative) Hep Bs Antibody, Quant mIU/mL Influenza Type A (PCR) (Not Detectd) Influenza Type B (PCR) (Not Detectd) RSV (PCR) (Not Detectd) SARS-CoV-2 (PCR) (Not Detectd) Disposition Clinical Impression: Generalized weakness, Hypomagnesemia Disposition: ADMITTED IP TO THIS HOSP Condition: Stable
[2025-01-17 12:58] LABS: Basophils # (A) 0.03 10*3/uL (0.00-0.10); Basophils % (A) 0.3 %; Eosinophils # (A) 0.18 10*3/uL (0.04-0.35); Eosinophils % (A) 1.8 %; HCT 30.8 % (37.2-46.3); HGB 10.2 g/dL (12.0-15.0); Lymphocytes # (A) 0.96 10*3/uL (0.90-5.00); Lymphocytes % (A) 9.7 %; MCH 33.9 pg (27.0-32.0); MCHC 33.1 g/dL (32.0-37.0); MCV 102.3 fL (80.0-97.0); Mean Platelet Volume 9.4 fL (9.5-12.2); Monocytes # (A) 0.53 10*3/uL (0.20-1.00); Monocytes % (A) 5.3 %; Neutrophils # (A) 8.19 10*3/uL (1.80-7.70); Neutrophils % (A) 82.5 %; Platelet Count 241 10*3/uL (140-440); RBC 3.01 10*6/uL (4.10-5.20); RDW 14.6 % (11.5-14.5); WBC 9.93 10*3/uL (4.50-10.00)
[2025-01-17] MEDS: ONDANSETRON 4 MG/2 ML VIAL IVP STA (12:59)
[2025-01-17] MEDS: ACETAMINOPHEN TAB 500 MG TAB PO STA (13:00)
[2025-01-17 13:01] LABS: Ionized Calcium 4.8 mg/dL (4.5-5.3)
[2025-01-17 13:12] LABS: ALT 20 U/L (4-34); African American GFR (CKD) 20 (>60 ml/min/1.73 sqM); Albumin 3.5 g/dL (3.5-5.0); Anion Gap 11 mmol/L; Blood Urea Nitrogen 53 mg/dL (7-17); Calcium 8.8 mg/dL (8.4-10.2); Carbon Dioxide 25 mmol/L (22-30); Chloride 97 mmol/L (98-107); Glucose 199 mg/dL (74-99); Lipase 18 U/L (23-300); Non-African American GFR(CKD) 17 (>60 ml/min/1.73 sqM); Phosphorus 3.8 mg/dL (2.5-4.5); Sodium 133 mmol/L (137-145); Total Bilirubin 0.7 mg/dL (0.2-1.3); Total Protein 6.7 g/dL (6.3-8.2)
[2025-01-17 13:15] LABS: AST 36 U/L (14-36); Alkaline Phosphatase 125 U/L (38-126); Magnesium 1.5 mg/dL (1.6-2.3); Potassium 4.2 mmol/L (3.5-5.1)
[2025-01-17 13:25] LABS: Influenza A Not Detected (Not Detectd); Influenza B Not Detected (Not Detectd); RSV Not Detected (Not Detectd)
[2025-01-17 13:48] LABS: NT-Pro-B-Type Natriuretic Pept 31900 pg/mL
[2025-01-17 13:52] LABS: Partial Thromboplastin Time 25.5 sec (22.0-30.0); Prothrombin Time 11.5 sec (10.0-12.5)
--- NOTE | 2025-01-17 13:52 | XR ---
EXAMINATION TYPE: XR chest 2V DATE OF EXAM: 01/17/2025 1:19 PM COMPARISON: 10/27/2024 CLINICAL INDICATION: Female, 59 years old with history of Weakness, TECHNIQUE: XR chest 2V view(s) obtained. FINDINGS: The heart size is prominent. The pulmonary vasculature is prominent. Pleural effusions are evident more visible on the lateral projection. IMPRESSION: 1. Volume overload. 2. Small bilateral pleural effusions [facility], , 01/17/2025 1:49 PM
--- NOTE | 2025-01-17 14:17 | CT ---
EXAMINATION TYPE: CT brain wo con CT DLP: 1141.1 mGycm, Automated exposure control for dose reduction was used. DATE OF EXAM: 01/17/2025 2:11 PM COMPARISON: CT facial bones 02/16/2024, MRI brain 03/02/2022, CT brain 03/01/2022, 02/28/2022 CLINICAL INDICATION:Female, 59 years old with history of headaches, new onset, nonfocal, HEADaches TECHNIQUE: Brain: Multiple axial CT images of the brain were obtained without IV contrast. . Coronal and sagitta l reformats reviewed. FINDINGS: Brain: Extra-axial spaces: No abnormal extra-axial fluid collections. Ventricular system: Within normal limits Cerebral parenchyma: No acute intraparenchymal hemorrhage or mass effect. The arias-white junction is well differentiated. Scattered hypoattenuating areas are seen within the periventricular white matte r. Remote lacunar injury within the right bassam and left frontal lobe periventricular white matter. Cerebellum: Unremarkable. Mass effect: No evidence of midline shift. Intracranial vasculature: Atherosclerotic calcifications of the intracranial vessels. Soft tissues: Normal. Calvarium/osseous structures: No depressed skull fracture. Paranasal sinuses and mastoid air cells: The paranasal sinuses are clear. The right mastoid air cells are clear. Trace chronic left mastoid effusion. Visualized orbits: Bilateral aphakia IMPRESSION: 1. No acute intracranial process. 2. Remote lacunar injuries along with nonspecific white matter changes likely secondary to chronic mi croangiopathy. [facility], , 01/17/2025 2:14 PM
[2025-01-17] MEDS: MAGNESIUM SULFATE-D5W PMX 1 GM in DEXTROSE/WATER 1 100ML.BAG IVPB ONE (14:33)
[2025-01-17] MEDS ORDERED: DEXTROSE 50% SYRINGE 50 ML IVP PRN (14:56)
[2025-01-17] MEDS ORDERED: NALOXONE 0.4 MG/ML 1 ML VIAL IV PRN (14:56)
--- NOTE | 2025-01-17 15:17 | P.HPIM ---
History of Present Illness H&P Date: 01/17/25 Patient is a 59-year-old female with PMH of CAD with ischemic cardiomyopathy with EF of 15 to 20%, COPD, ESRD on dialysis MWF via R chest catheter, diabetes mellitus, fibromyalgia, GERD, hyperlipidemia, hypertension, and osteoarthritis presented to the emergency department Previously admitted from 09/13-09/20 for treatment of emphysematous cystitis with micorperforations, another admission 10/27-11/05 for chest pain, TTE was done and showed EF of 25 to 30%. Had treatment for ESBL UTI,, was evaluated for possible rectovesical fistula however imaging was inconclusive and patient had diff iculties holding rectal contrast, she was discharged to nursing facility at that time. On arrival febrile 99.9, heart rate 80, BP 143/67, SpO2 94 on room air. Lab work remarkable for normal WBC, stable hemoglobin of 10.2, normal platelet count, coagulation panel, sodium 133, potassium 4.2, glucose 199, magnesium low 1.5, troponin elevated 0.0 75, BNP elevated 31,900, [place] [address] Chest x-ray showed volume overload with small bilateral pleural effusions, personally reviewed. CT head was performed due to headaches and showed no acute process, remote lacunar injuries along with nonspecific white matter changes likely secondary to chronic microangiopathy. Pertinent positives and negatives as discussed in HPI, a complete review of systems was performed and all other systems are negative. Patient seen and examined at bedside. [] Vital signs reviewed General: [nontoxic], [no distress], [appears at stated age], chronically ill appearing Derm: [warm], [dry] Head: [atraumatic], [normocephalic], [symmetric] Eyes: [EOMI], [no lid lag], [anicteric sclera] Mouth: [no lip lesion], [mucus membranes moist] Cardiovascular: [S1S2 reg], [no murmur] Lungs: [CTA bilateral], [no rhonchi, no rales] , [no accessory muscle use] Abdominal: [soft], [ nontender to palpation], [no guarding], [no appreciable organomegaly] Ext: [no gross muscle atrophy], [no edema], [no contractures] Neuro: [ CN II-XI grossly intact], [no focal neuro deficits] Psych: [Alert], [oriented], [appropriate affect] Assessment/Plan: Isolated fever Generalized weakness Hypomagnesemia -Cepheid negative -Magnesium replaced with the ED with 1 g IV -Check procalcitonin, TSH, lactic acid -Denies dysuria -Follow-up BMP, magnesium, phosphorus daily -PT OT History of CAD with stenting, history of CABG, ACS ruled out CHF with EF 25 to 30%, not in acute exacerbation - needs to be evaluated for ICD implantation ESRD on HD, -Continue HD per nephrology, hx of ESBL E. coli emphysematous cystitis UTI, enterococ casseliflavus chronic diarrhea History of methamphetamine use, depression: COPD not in exacerbation: Continue DuoNebs, Symbicort, Spiriva GERD: Continue Protonix Hypothyroidism: Continue Synthroid 176 Hyperlipidemia: Continue Lipitor Hypertension: Metoprolol, torsemide, Entresto Type II DM with hyperglycemia Basal bolus with Levemir 9 units and mealtime 3 units, continue SSI The patient is admitted with an anticipated [greater] than 2 midnight stay as [inpatient/observation] status for evaluation of []. CODE STATUS:full DVT prophylaxis: heparin Anticipated discharge date: tbd Anticipated discharge place: [facility] A total of 40 minutes was spent on the care of this complex patient more than 50% of the time was spent in counseling and care coordination.. Past Medical History Past Medical History: Coronary Artery Disease (CAD), Chest Pain / Angina, Heart Failure, COPD, CVA/TIA, Diabetes Mellitus, Fibromyalgia, GERD/Reflux, Hyperlipidemia, Hypertension, Liver Disease, Myocardial Infarction ([place]), Osteoarthritis (OA), Renal Disease, Thyroid Disorder Additional Past Medical History / Comment(s): NEUROPATHY BILATERAL FEET, DDD NECK AND LOWER BACK, hiatal hernia, states no need for BP med anymore(gets orthostatic hypotension-has "medtronic heart loop monitor"), hx hepatitis as a kid, hx fractrured left wrist, hx stroke 03/03/22-problems with balance since. Last Myocardial Infarction Date:: 02/2024 History of Any Multi-Drug Resistant Organisms: ESBL, MRSA Date of last positivie culture/infection: 09/13/24-ESBL; 2018-MRSA MDRO Source:: ESBL-urine; MRSA-stomach Past Surgical History: Adenoidectomy, Back Surgery, Bladder Surgery, Hysterectomy, Orthopedic Surgery, Tonsillectomy, Tubal Ligation Additional Past Surgical History / Comment(s): Debridement right foot, PICC line placed and later removed, bladder suspension, exploratory laparotomy, right great toe amputation, pins right in foot, cataracts removed, left wrist ORIF, loop heart monitor placed 02/2022. Past Anesthesia/Blood Transfusion Reactions: No Reported Reaction, Motion Sickness Additional Past Anesthesia/Blood Transfusion Reaction / Comment(s): . Type of Cardiac Device: Loop Past Psychological History: Anxiety, Depression Smoking Status: Former smoker Past Alcohol Use History: Occasional Past Drug Use History: Marijuana, Methamphetamine - Past Family History Sister(s) Family Medical History: Coronary Artery Disease (CAD) Mother Family Medical History: Pulmonary Embolus Additional Family Medical History / Comment(s): . Father Additional Family Medical History / Comment(s): at 26yrs old--accident at work Medications and Allergies Home Medications Medication Instructions Recorded Confirmed Type Levothyroxine Sodium [Synthroid] 175 mcg PO DAILY 02/02/22 10/27/24 History traZODone HCL [Desyrel] 50 mg PO HS 02/09/24 10/27/24 History Clopidogrel [Plavix] 75 mg PO DAILY tab 03/18/24 10/27/24 Rx Pantoprazole [Protonix] 40 mg PO AC-BRKFST tab 03/18/24 10/27/24 Rx Acetaminophen Tab [Tylenol] 650 mg PO Q6H PRN 06/30/24 10/27/24 History Aspirin EC [Ecotrin Low Dose] 81 mg PO DAILY 06/30/24 10/27/24 History Atorvastatin [Lipitor] 40 mg PO HS 06/30/24 10/27/24 History Fluticasone/Umeclidin/Vilanter 1 puff INHALATION RT-DAILY 06/30/24 10/27/24 History [Trelegy Ellipta 100-62.5-25] Polyvinyl Alcohol/Povidone [Clear 1 drop BOTH EYES QID PRN 06/30/24 10/27/24 History Eyes Natural Tears Drop] Metoprolol Succinate (ER) [Toprol 25 mg PO DAILY #30 tab 07/05/24 10/27/24 Rx XL] Torsemide [Demadex] 40 mg PO DAILY #30 tab 07/05/24 10/27/24 Rx Insulin Aspart [NovoLOG Flexpen] See Protocol SQ AC-TID 11/18/24 01/19/25 History Loperamide [Imodium] 2 mg PO QID PRN cap 09/20/24 10/27/24 Rx Sacubitril/Valsartan [Entresto 24 1 tab PO BID 10/18/24 10/27/24 History mg-26 mg Tablet] Ondansetron Odt [Zofran ODT] 4 mg PO Q8HR PRN #10 tab 10/25/24 10/27/24 Rx Insulin Glargine,Hum.rec.anlog 6 units SQ DAILY@1100 10/27/24 10/27/24 History [Lantus Solostar Pen] Cholestyramine (with Sugar) 4 gm PO BID@1000,1800 packet 11/05/24 Rx [Questran Packet] DAPTOmycin [Cubicin] 250 mg IVPB Q24HR@1800 6 Days #6 11/05/24 Rx each HYDROcodone/APAP 7.5-325MG [Graham 1 tab PO Q6HR PRN 3 Days #12 tab 11/05/24 Rx 7.5-325] Ipratropium-Albuterol Nebulize 3 ml INHALATION RT-QID PRN each 11/05/24 Rx [Duoneb 0.5 mg-3 mg/3 ml Soln] Isosorbide Mononitrate ER [Imdur] 30 mg PO DAILY tab 11/05/24 Rx Midodrine [ProAmatine] 5 mg PO BID 30 Days tablet 11/05/24 Rx Midodrine [ProAmatine] 5 mg PO BID PRN tab 11/05/24 Rx Sertraline [Zoloft] 25 mg PO HS tab 11/05/24 Rx Allergies Allergy/AdvReac Type Severity Reaction Status Date / Time Sulfa (Sulfonamide Allergy Rash/Hives Verified 01/17/25 12:05 Antibiotics) Physical Exam Vitals: Vital Signs Temp Pulse Resp BP Pulse Ox 01/17/25 12:01 99.9 F H 80 17 143/67 94 L Intake and Output 01/16/25 01/17/25 01/17/25 22:59 06:59 14:59 Other: Weight 58.967 kg Results CBC & Chem 7: 01/17/25 12:49 01/17/25 12:49 Labs: Abnormal Lab Results - Last 24 Hours (Table) 01/17/25 01/17/25 01/17/25 Range/Units 12:49 12:49 12:49 RBC 3.01 L (4.10-5.20) 10*6/uL Hgb 10.2 L (12.0-15.0) g/dL Hct 30.8 L (37.2-46.3) % MCV 102.3 H (80.0-97.0) fL MCH 33.9 H (27.0-32.0) pg MPV 9.4 L (9.5-12.2) fL Neutrophils # 8.19 H (1.80-7.70) 10*3/uL Sodium 133 L (137-145) mmol/L Chloride 97 L (98-107) mmol/L BUN 53 H (7-17) mg/dL Creatinine 2.85 H (0.52-1.04) mg/dL Glucose 199 H (74-99) mg/dL Magnesium 1.5 L (1.6-2.3) mg/dL Troponin I 0.075 H* (0.000-0.034) ng/mL Lipase 18 L (23-300) U/L
[2025-01-17 16:32] LABS: Appearance,Urine Turbid (Clear); Bilirubin,Urine Negative (Negative); Blood,Urine Moderate (Negative); Glucose,Urine (UA) Trace (Negative); Ketones,Urine Negative (Negative); Leukocyte Esterase,Urine Large (Negative); Nitrite,Urine Negative (Negative); Protein,Urine 2+ (Negative); Squamous Epithelial Cell,Urine 9 /hpf (0-4); Urobilinogen,Urine <2.0 mg/dL (<2.0); WBC,Urine >182 /hpf (0-5)
[2025-01-17 16:37] LABS: Specific Gravity,Urine 1.021 (1.001-1.035)
[2025-01-17 16:38] LABS: Color,Urine Dark Yellow
[2025-01-17 16:56] LABS: African American GFR (CKD) 19 (>60 ml/min/1.73 sqM); Anion Gap 10 mmol/L; Blood Urea Nitrogen 54 mg/dL (7-17); Calcium 9.1 mg/dL (8.4-10.2); Carbon Dioxide 22 mmol/L (22-30); Chloride 99 mmol/L (98-107); Glucose 197 mg/dL (74-99); Non-African American GFR(CKD) 17 (>60 ml/min/1.73 sqM); Potassium 4.3 mmol/L (3.5-5.1); Sodium 131 mmol/L (137-145)
[2025-01-17] MEDS: ALTEPLASE 2 MG VIAL (CATHFLO) IV STA (17:29)
[2025-01-17] MEDS: ALTEPLASE 2 MG VIAL (CATHFLO) MISCELLANE ONE (17:30)
[2025-01-17 17:51] LABS: Glucose,Whole Blood 206 mg/dL (70-110)
[2025-01-17] MEDS: INSULIN LISPRO (HumaLOG) 100 UNIT/ML 10 mL VL SQ SCH (17:52)
[2025-01-17] MEDS: CHOLESTYRAMINE (WITH SUGAR) 4 GM PACKET PO SCH (19:07)
[2025-01-17 20:13] LABS: Glucose,Whole Blood 224 mg/dL (70-110)
[2025-01-17] MEDS: HEPARIN SODIUM,PORCINE 5,000 UNIT/ML 1 ML VIAL SQ SCH (20:21)
[2025-01-17] MEDS: ONDANSETRON 4 MG/2 ML VIAL IVP PRN (20:27)
[2025-01-17] MEDS: ATORVASTATIN 40 MG TAB PO SCH (22:13)
[2025-01-17] MEDS: SERTRALINE 25 MG TAB PO SCH (22:13)
[2025-01-17] MEDS ORDERED: ACETAMINOPHEN TAB 325 MG TAB PO PRN (22:26)
[2025-01-17] MEDS: ACETAMINOPHEN IV (For NPO) 1,000 MG in EMPTY BAG 1 BAG IVPB ONE (22:57)
[2025-01-17] MEDS: INSULIN GLARGINE (LANTUS) 100 UNIT/ML SYR SQ SCH (23:26)
[2025-01-17] MEDS: HYDROcodone/APAP 7.5-325MG 1 EACH TAB PO PRN (23:38)
[2025-01-17] MEDS: METOCLOPRAMIDE 5 MG/ML 2 ML VIAL IVP STA (23:39)
[2025-01-18] MEDS: LOPERAMIDE 2 MG CAP PO PRN (00:29)
[2025-01-18 01:19] LABS: Basophils # (A) 0.04 10*3/uL (0.00-0.10); Basophils % (A) 0.5 %; Eosinophils # (A) 0.05 10*3/uL (0.04-0.35); Eosinophils % (A) 0.6 %; HCT 27.8 % (37.2-46.3); HGB 9.3 g/dL (12.0-15.0); Lymphocytes # (A) 0.83 10*3/uL (0.90-5.00); Lymphocytes % (A) 9.5 %; MCH 33.9 pg (27.0-32.0); MCHC 33.5 g/dL (32.0-37.0); MCV 101.5 fL (80.0-97.0); Monocytes # (A) 0.39 10*3/uL (0.20-1.00); Monocytes % (A) 4.5 %; Neutrophils # (A) 7.42 10*3/uL (1.80-7.70); Neutrophils % (A) 84.6 %; Platelet Count 207 10*3/uL (140-440); RBC 2.74 10*6/uL (4.10-5.20); RDW 14.6 % (11.5-14.5); WBC 8.76 10*3/uL (4.50-10.00)
[2025-01-18 03:05] LABS: Hepatitis B Surface Antigen Nonreactive (Nonreactive)
[2025-01-18 03:07] LABS: Hepatitis B Surface AB- Quant 3.5 mIU/mL
[2025-01-18 06:16] LABS: Glucose,Whole Blood 311 mg/dL (70-110)
[2025-01-18] MEDS: PANTOPRAZOLE 40 MG TABLET PO SCH (06:32)
[2025-01-18] MEDS: LEVOTHYROXINE 88 MCG TAB PO SCH (06:32)
[2025-01-18] MEDS: SYMBICORT 160-4.5 MCG INHALER INHALATION SCH (08:03)
[2025-01-18] MEDS: TIOTROPIUM 2.5 MCG INHALER INHALATION SCH (08:04)
[2025-01-18] MEDS: CLOPIDOGREL 75 MG TAB PO SCH (08:25)
[2025-01-18] MEDS: ASPIRIN 81 MG PO SCH (08:25)
[2025-01-18] MEDS: DAPTOmycin 350 MG in SODIUM CHLORIDE 0.9% 50 ML IVPB SCH (10:25)
[2025-01-18] MEDS ORDERED: ASPIRIN-ACET-CAFF 250-250-65MG 1 EACH TAB PO PRN (11:04)
[2025-01-18 12:00] LABS: Glucose,Whole Blood 314 mg/dL (70-110)
--- NOTE | 2025-01-18 12:44 | P.NPCON ---
History of Present Illness - Reason for Consult end stage renal disease - History of Present Illness Patient is a 59-year-old female with end-stage renal disease on hemodialysis Monday schedule. She is admitted to the hospital due to malfunctioning dialysis catheter. Patient did have a short treatment yesterday with 1.3 L of UF but catheter stopped functioning. Complaining of abdominal discomfort Complaining of weakness as well. History of UTIs ESBL in October 2024 Possible new catheter placement on Monday. Vascular surgery will be consulted. Past Medical History Past Medical History: Coronary Artery Disease (CAD), Chest Pain / Angina, Heart Failure, COPD, CVA/TIA, Diabetes Mellitus, Fibromyalgia, GERD/Reflux, Hyperlipidemia, Hypertension, Liver Disease, Myocardial Infarction ([place]), Osteoarthritis (OA), Renal Disease, Thyroid Disorder Additional Past Medical History / Comment(s): NEUROPATHY BILATERAL FEET, DDD NECK AND LOWER BACK, hiatal hernia, hx hepatitis as a kid, hx fractrured left wrist, hx stroke 03/03/22-pt reports no issues/residual effects. loop recorder Last Myocardial Infarction Date:: 02/2024 History of Any Multi-Drug Resistant Organisms: ESBL, MRSA Date of last positivie culture/infection: 09/13/24-ESBL; 2017-MRSA MDRO Source:: ESBL-urine; MRSA-stomach Past Surgical History: Adenoidectomy, Back Surgery, Bladder Surgery, Hysterectomy, Orthopedic Surgery, Tonsillectomy, Tubal Ligation Additional Past Surgical History / Comment(s): Debridement right foot, PICC line placed and later removed, bladder suspension, exploratory laparotomy, right great toe amputation, pins right in foot, cataracts removed, left wrist ORIF, loop heart monitor placed 02/2022. Past Anesthesia/Blood Transfusion Reactions: No Reported Reaction, Motion Sickness Additional Past Anesthesia/Blood Transfusion Reaction / Comment(s): . Type of Cardiac Device: Loop Past Psychological History: Anxiety, Depression Additional Psychological History / Comment(s): . Smoking Status: Former smoker Past Alcohol Use History: None Reported Additional Past Alcohol Use History / Comment(s): SMOKER SINCE , 1 PPD. no longer smokes Past Drug Use History: Marijuana, Methamphetamine Additional Drug Use History / Comment(s): States that she last used methamphetamine 1 yr ago - Past Family History Sister(s) Family Medical History: Coronary Artery Disease (CAD) Mother Family Medical History: Pulmonary Embolus Additional Family Medical History / Comment(s): . Father Additional Family Medical History / Comment(s): at 26yrs old--accident at work Medications and Allergies Home Medications Medication Instructions Recorded Confirmed Type Levothyroxine Sodium [Synthroid] 175 mcg PO DAILY 02/02/22 01/17/25 History traZODone HCL [Desyrel] 50 mg PO HS 02/09/24 01/17/25 History Acetaminophen Tab [Tylenol] 650 mg PO Q6H PRN 06/30/24 01/17/25 History Aspirin EC [Ecotrin Low Dose] 81 mg PO DAILY 06/30/24 01/17/25 History Atorvastatin [Lipitor] 40 mg PO DAILY 06/30/24 01/17/25 History Fluticasone/Umeclidin/Vilanter 1 puff INHALATION RT-DAILY 06/30/24 01/17/25 History [Trelegy Ellipta 100-62.5-25] Torsemide [Demadex] 40 mg PO DAILY #30 tab 07/05/24 01/17/25 Rx Insulin Aspart [NovoLOG Flexpen] See Protocol SQ AC-TID 08/26/24 01/17/25 History Loperamide [Imodium] 2 mg PO QID PRN cap 09/20/24 01/17/25 Rx Sacubitril/Valsartan [Entresto 24 1 tab PO BID 10/18/24 01/17/25 History mg-26 mg Tablet] Insulin Glargine,Hum.rec.anlog 12 - 15 units SQ DAILY@1300 10/27/24 01/17/25 History [Lantus Solostar Pen] Sertraline [Zoloft] 25 mg PO HS tab 11/05/24 01/17/25 Rx Diphenox-Atrop 2.5-0.025 mg 1 tab PO DIRECTED 01/17/25 01/17/25 History [Lomotil] Ipratropium [place] [Atrovent Hfa] 2 puff INHALATION RT-Q6H PRN 01/17/25 01/17/25 History Ipratropium-Albuterol Nebulize 3 ml INHALATION RT-Q6H PRN 01/17/25 01/17/25 History [Duoneb 0.5 mg-3 mg/3 ml Soln] Metoprolol Succinate (ER) [Toprol 50 mg PO DAILY 01/17/25 01/17/25 History Xl] Ondansetron [Zofran] 4 mg PO Q8H PRN 01/17/25 01/17/25 History Tamsulosin [Flomax] 0.4 mg PO HS 01/17/25 01/17/25 History Allergies Allergy/AdvReac Type Severity Reaction Status Date / Time Sulfa (Sulfonamide Allergy Rash/Hives Verified 01/17/25 15:23 Antibiotics) Physical Exam Vitals: Vital Signs Temp Pulse Pulse Pulse Resp BP BP 01/18/25 07:00 98.1 F 75 16 165/70 01/18/25 03:34 97.6 F 69 15 129/52 01/17/25 23:57 67 01/17/25 23:15 99.2 F 76 17 127/53 01/17/25 22:15 100.3 F H 87 16 132/65 01/17/25 20:29 89 18 150/73 01/17/25 19:19 97.1 F L 67 16 135/66 Pulse Ox 01/18/25 07:00 96 01/18/25 03:34 94 L 01/17/25 23:57 01/17/25 23:15 91 L 01/17/25 22:15 95 01/17/25 20:29 94 L 01/17/25 19:19 Intake and Output 01/17/25 01/18/25 01/18/25 22:59 06:59 14:59 Intake Total 400 Output Total 3200 Balance -2800 Intake: Hemodialysis 400 Output: Hemodialysis 1800 Hemodialysis Net Amount 1400 Other: # Voids 1 Weight 58.967 kg Patient is awake, comfortable, no acute distress Examination of the heart S1 and S2 Examination of the lungs bilateral breath sounds are heard Examination of lower extremities shows chronic skin changes chronic edema 1+ bilaterally [employer] exam grossly intact Results - Lab Results Most recent lab results Calcium 9.1 mg/dL (8.4-10.2) 01/17/25 16:10 Phosphorus 3.8 mg/dL (2.5-4.5) 01/17/25 12:49 Magnesium 1.5 mg/dL (1.6-2.3) L 01/17/25 12:49 01/18/25 00:01/17/25 16:10 Assessment and Plan Assessment: 1. End-stage renal disease on hemodialysis on Monday schedule 2. Malfunctioning dialysis catheter, Cathflo will be placed until Monday. Possible new catheter placement on Monday if it continues to malfunction 3. Volume overload 4. Anemia of chronic disease 5. History of ESBL UTI in October 2024 6. Low-grade fever on admission with urine showing significant pyuria. No tenderness or discharge noted from dialysis catheter. Plan: Reattempt hemodialysis on Monday after Cathflo has dwelled over the weekend. Continue antibiotics Follow-up on urine culture Consult vascular surgery. Thank you for the consultation. We will continue to follow the patient with you during her hospitalization
[2025-01-18] MEDS ORDERED: IPRATROPIUM-ALBUTEROL 3 ML NEB INHALATION PRN (13:41)
[2025-01-18] MEDS ORDERED: NON FORMULARY DRUG (Ipratropium Bromide [Atrovent Hfa] 12.9 GM Hfa.Aer.Ad) INHALATION PRN (13:41)
[2025-01-18] MEDS ORDERED: DIPHENOX-ATROP 2.5-0.025 MG 1 EACH TAB PO PRN (13:45)
--- NOTE | 2025-01-18 13:45 | P.PN ---
Subjective Progress Note Date: 01/18/25 Hospital Course: Patient is a 59-year-old female with PMH of CAD with ischemic cardiomyopathy w ith EF of 15 to 20%, COPD, ESRD on dialysis MWF via R chest catheter, diabetes mellitus, fibromyalgia, GERD, hyperlipidemia, hypertension, and osteoarthritis presented to the emergency department Previously admitted from 09/13-09/20 for treatment of emphysematous cystitis with micorperforations, another admission 10/27-11/05 for chest pain, TTE was done and showed EF of 25 to 30%. Had treatment for ESBL UTI,, was evaluated for possible rectovesical fistula however imaging was inconclusive and patient had difficulties holding rectal contrast, she was discharged to nursing facility at that time. On arrival febrile 99.9, heart rate 80, BP 143/67, SpO2 94 on room air. Lab work remarkable for normal WBC, stable hemoglobin of 10.2, normal platelet count, coagulation panel, sodium 133, potassium 4.2, glucose 199, magnesium low 1.5, troponin elevated 0.0 75, BNP elevated 31,900, [place] [id number] Chest x-ray showed volume overload with small bilateral pleural effusions, personally reviewed. CT head was performed due to headaches and showed no acute process, remote lacunar injuries along with nonspecific white matter changes likely secondary to chronic microangiopathy. Admitted for evaluation of generalized weakness, hypomagnesemia, UTI with history of ESBL E. coli, ID consulted, nephrology consulted. Dialysis catheter stopped functioning 01/17, reattempt on 01/20, vascular surgery consulted for catheter exchange Pertinent Imaging: No new imaging Subjective: Complains of ongoing headache, was sitting in the recliner, did have 2 episodes of vomiting 01/17, none since Pertinent positives and negatives as discussed above, a complete review of systems was performed and all other systems are negative. Vitals Signs Reviewed. General: [nontoxic], [no distress], [appears at stated age], chronically ill appearing Derm: [warm], [dry], right-sided upper chest hemodialysis catheter in place, dressing appears clean Head: [atraumatic], [normocephalic], [symmetric] Eyes: [EOMI], [no lid lag], [anicteric sclera] Mouth: [no lip lesion], [mucus membranes moist] Cardiovascular: [S1S2 reg], [no murmur] Lungs: [CTA bilateral], [no rhonchi, no rales] , [no accessory muscle use] Abdominal: [soft], [ nontender to palpation], [no guarding], [no appreciable organomegaly] Ext: [no gross muscle atrophy], [no edema], [no contractures] Neuro: [ CN II-XI grossly intact], [no focal neuro deficits] Psych: [Alert], [oriented], [appropriate affect] Data Reviewed Today: Pertinent Labs: Normal WBC, hemoglobin 9.3, platelet count normal, glucose 300 BMP pending Assessment and Plan Generalized weakness hx of ESBL E. coli emphysematous cystitis UTI chronic diarrhea Hypomagnesemia -ID consulted, urine cultures pending, started on daptomycin SO -Spiked fever again on01/17 10 PM -Blood and urine cultures pending -Cepheid negative -Magnesium replaced with the ED with 1 g IV -Procalcitonin positive, generalized abdominal discomfort -Follow-up BMP, magnesium, phosphorus daily -PT OT History of CAD with stenting, history of CABG, ACS ruled out CHF with EF 25 to 30%, not in acute exacerbation - needs to be evaluated for ICD implantation ESRD on HD Malfunctioning hemodialysis catheter -Vascular surgery consulted -Continue HD per nephrology, History of methamphetamine use, depression: COPD not in exacerbation: Continue DuoNebs, Symbicort, Spiriva GERD: Continue Protonix Hypothyroidism: Continue Synthroid 176 Hyperlipidemia: Continue Lipitor Hypertension: Metoprolol, torsemide, Entresto Type II DM with hyperglycemia Basal bolus with Levemir 10 units and mealtime 3 units, continue SSI CODE STATUS:full DVT prophylaxis: heparin Anticipated discharge date: tbd Anticipated discharge place: TBD Objective - Vital Signs Vital signs: Vital Signs Temp 98.1 F 01/18/25 07:00 Pulse 75 01/18/25 07:00 Resp 16 01/18/25 07:00 BP 165/70 01/18/25 07:00 Pulse Ox 96 01/18/25 07:00 FiO2 Intake & Output 01/17/25 01/18/25 01/18/25 18:59 06:59 18:59 Intake Total 400 Output Total 3200 Balance -2800 Weight 58.967 kg 58.967 kg Intake: Hemodialysis 400 Output: Hemodialysis 1800 Hemodialysis Net Amount 1400 Other: # Voids 1 - Labs CBC & Chem 7: 01/18/25 00:02 01/17/25 16:10 Labs: Abnormal Lab Results - Last 24 Hours (Table) 01/17/25 01/17/25 01/17/25 Range/Units 16:10 16:10 16:15 RBC (4.10-5.20) 10*6/uL Hgb (12.0-15.0) g/dL Hct (37.2-46.3) % MCV (80.0-97.0) fL MCH (27.0-32.0) pg RDW (11.5-14.5) % Lymphocytes # (0.90-5.00) 10*3/uL Sodium 131 L (137-145) mmol/L BUN 54 H (7-17) mg/dL Creatinine 2.91 H (0.52-1.04) mg/dL Glucose 197 H (74-99) mg/dL POC Glucose (mg/dL) (70-110) mg/dL Procalcitonin 1.52 H (0.02-0.50) ng/mL Urine Appearance Turbid H (Clear) Urine Protein 2+ H (Negative) Urine Glucose (UA) Trace H (Negative) Urine Blood Moderate H (Negative) Ur Leukocyte Esterase Large H (Negative) Urine WBC >182 H (0-5) /hpf Urine WBC Clumps Many H (None) /hpf Ur Squamous Epith Cells 9 H (0-4) /hpf 01/17/25 01/17/25 01/18/25 Range/Units 17:49 20:12 00:02 RBC 2.74 L (4.10-5.20) 10*6/uL Hgb 9.3 L (12.0-15.0) g/dL Hct 27.8 L (37.2-46.3) % MCV 101.5 H (80.0-97.0) fL MCH 33.9 H (27.0-32.0) pg RDW 14.6 H (11.5-14.5) % Lymphocytes # 0.83 L (0.90-5.00) 10*3/uL Sodium (137-145) mmol/L BUN (7-17) mg/dL Creatinine (0.52-1.04) mg/dL Glucose (74-99) mg/dL POC Glucose (mg/dL) 206 H 224 H (70-110) mg/dL Procalcitonin (0.02-0.50) ng/mL Urine Appearance (Clear) Urine Protein (Negative) Urine Glucose (UA) (Negative) Urine Blood (Negative) Ur Leukocyte Esterase (Negative) Urine WBC (0-5) /hpf Urine WBC Clumps (None) /hpf Ur Squamous Epith Cells (0-4) /hpf 01/18/25 01/18/25 Range/Units 06:14 11:59 RBC (4.10-5.20) 10*6/uL Hgb (12.0-15.0) g/dL Hct (37.2-46.3) % MCV (80.0-97.0) fL MCH (27.0-32.0) pg RDW (11.5-14.5) % Lymphocytes # (0.90-5.00) 10*3/uL Sodium (137-145) mmol/L BUN (7-17) mg/dL Creatinine (0.52-1.04) mg/dL Glucose (74-99) mg/dL POC Glucose (mg/dL) 311 H 314 H (70-110) mg/dL Procalcitonin (0.02-0.50) ng/mL Urine Appearance (Clear) Urine Protein (Negative) Urine Glucose (UA) (Negative) Urine Blood (Negative) Ur Leukocyte Esterase (Negative) Urine WBC (0-5) /hpf Urine WBC Clumps (None) /hpf Ur Squamous Epith Cells (0-4) /hpf
[2025-01-18] MEDS: ALTEPLASE 2 MG VIAL (CATHFLO) IV STA ×2 (16:45→16:46)
[2025-01-18 17:20] LABS: Glucose,Whole Blood 446 mg/dL (70-110)
[2025-01-18] MEDS: INSULIN LISPRO (HumaLOG) 100 UNIT/ML 10 mL VL SQ ONE (18:26)
[2025-01-18] MEDS: INSULIN LISPRO (HumaLOG) 100 UNIT/ML 10 mL VL SQ SCH (18:27)
[2025-01-18 19:40] LABS: Glucose,Whole Blood 455 mg/dL (70-110)
[2025-01-18] MEDS: SACUBITRIL/VALSARTAN 24 MG-26 MG TABLET PO SCH (21:22)
[2025-01-18] MEDS: traZODone HCL 50 MG TAB PO SCH (21:22)
[2025-01-18] MEDS: TAMSULOSIN 0.4 MG CAP.ER.24H PO SCH (21:22)
--- NOTE | 2025-01-18 22:49 | P.CONS ---
History of Present Illness - Reason for Consult Consult date: 01/18/25 Recurrent UTI Requesting physician: Jessica Posadas - Chief Complaint Weakness x 5 days - History of Present Illness Patient is a 59-year-old female with a past medical history significant for Coronary Artery Disease (CAD), Chest Pain / Angina, Heart Failure, COPD, CVA/TIA, Diabetes Mellitus, Fibromyalgia, GERD/Reflux, Hyperlipidemia, Hypertension, Liver Disease, Myocardial Infarction (IA), Osteoarthritis (OA), Renal Disease, Thyroid Disorder, end-stage renal disease on dialysis through the right subclavian perma catheter also with history of recurrent cystitis and this patient still make urine and has previously been on VRE as well as ESBL E. coli patient presenting to the hospital for generalized weakness that apparently been getting worse for the last 5 days patient mention she missed her dialysis on Monday and Monday they were not able to do the d ialysis because of issue with the flow from the catheter and seem to have similar issue on Monday and could not complete her dialysis patient was complaining of nauseated and did have up 2 episodes of vomiting and has been complaining of lower abdominal discomfort for mostly dull aching to sharp mod erate intensity without any radiation and has been complaining of significant dysuria but no hematuria with the symptoms the patient has been evaluated on presentation to the hospital patient did have low-grade fever of 99.9 subsequently did have a temperature of 100.3 F patient was nontachycardic hypotensive or hypoxic patient did have white count of 9.93 with a left shift BUN and creatinine has been elevated liver enzymes are normal urine has been positive influenza RSV COVID testing was negative patient did have a chest x-ray volume overload small bilateral effusion she was started on daptomycin infectious disease was consulted because of recurrent UTI and need for further antibiotic investigation Review of Systems Positive point and negatives has been mentioned in the HPI, complete review of systems was performed and all other systems are negative Past Medical History Past Medical History: Coronary Artery Disease (CAD), Chest Pain / Angina, Heart Failure, COPD, CVA/TIA, Diabetes Mellitus, Fibromyalgia, GERD/Reflux, Hyperlipidemia, Hypertension, Liver Disease, Myocardial Infarction (IA), Osteoarthritis (OA), Renal Disease, Thyroid Disorder Additional Past Medical History / Comment(s): NEUROPATHY BILATERAL FEET, DDD NECK AND LOWER BACK, hiatal hernia, hx hepatitis as a kid, hx fractrured left wrist, hx stroke 03/03/22-pt reports no issues/residual effects. loop recorder Last Myocardial Infarction Date:: 02/2024 History of Any Multi-Drug Resistant Organisms: ESBL, MRSA Year Discovered:: 09/13/24-ESBL; 2018-MRSA MDRO Source:: ESBL-urine; MRSA-stomach Past Surgical History: Adenoidectomy, Back Surgery, Bladder Surgery, Hysterectomy, Orthopedic Surgery, Tonsillectomy, Tubal Ligation Additional Past Surgical History / Comment(s): Debridement right foot, PICC line placed and later removed, bladder suspension, exploratory laparotomy, right great toe amputation, pins right in foot, cataracts removed, left wrist ORIF, loop heart monitor placed 02/2022. Past Anesthesia/Blood Transfusion Reactions: No Reported Reaction, Motion Sickness Additional Past Anesthesia/Blood Transfusion Reaction / Comm: . Type of Cardiac Device: Loop Past Psychological History: Anxiety, Depression Additional Psychological History / Comment(s): . Smoking Status: Former smoker Past Alcohol Use History: None Reported Additional Past Alcohol Use History / Comment(s): SMOKER SINCE , 1 PPD. no longer smokes Past Drug Use History: Marijuana, Methamphetamine Additional Drug Use History / Comment(s): States that she last used methamphetamine 1 yr ago - Past Family History Sister(s) Family Medical History: Coronary Artery Disease (CAD) Mother Family Medical History: Pulmonary Embolus Additional Family Medical History / Comment(s): . Father Additional Family Medical History / Comment(s): at 26yrs old--accident at work Medications and Allergies Home Medications Medication Instructions Recorded Confirmed Type Levothyroxine Sodium [Synthroid] 175 mcg PO DAILY 02/02/22 01/17/25 History traZODone HCL [Desyrel] 50 mg PO HS 02/09/24 01/17/25 History Acetaminophen Tab [Tylenol] 650 mg PO Q6H PRN 06/30/24 01/17/25 History Aspirin EC [Ecotrin Low Dose] 81 mg PO DAILY 06/30/24 01/17/25 History Atorvastatin [Lipitor] 40 mg PO DAILY 06/30/24 01/17/25 History Fluticasone/Umeclidin/Vilanter 1 puff INHALATION RT-DAILY 06/30/24 01/17/25 History [Trelegy Ellipta 100-62.5-25] Torsemide [Demadex] 40 mg PO DAILY #30 tab 07/05/24 01/17/25 Rx Insulin Aspart [NovoLOG Flexpen] See Protocol SQ AC-TID 08/26/24 01/17/25 History Loperamide [Imodium] 2 mg PO QID PRN cap 09/20/24 01/17/25 Rx Sacubitril/Valsartan [Entresto 24 1 tab PO BID 10/18/24 01/17/25 History mg-26 mg Tablet] Insulin Glargine,Hum.rec.anlog 12 - 15 units SQ DAILY@1300 10/27/24 01/17/25 History [Lantus Solostar Pen] Sertraline [Zoloft] 25 mg PO HS tab 11/05/24 01/17/25 Rx Diphenox-Atrop 2.5-0.025 mg 1 tab PO DIRECTED 01/17/25 01/17/25 History [Lomotil] Ipratropium [place] [Atrovent Hfa] 2 puff INHALATION RT-Q6H PRN 01/17/25 01/17/25 History Ipratropium-Albuterol Nebulize 3 ml INHALATION RT-Q6H PRN 01/17/25 01/17/25 History [Duoneb 0.5 mg-3 mg/3 ml Soln] Metoprolol Succinate (ER) [Toprol 50 mg PO DAILY 01/17/25 01/17/25 History Xl] Ondansetron [Zofran] 4 mg PO Q8H PRN 01/17/25 01/17/25 History Tamsulosin [Flomax] 0.4 mg PO HS 01/17/25 01/17/25 History Allergies Allergy/AdvReac Type Severity Reaction Status Date / Time Sulfa (Sulfonamide Allergy Rash/Hives Verified 01/17/25 15:23 Antibiotics) Physical Exam Vitals: Vital Signs Temp Pulse Pulse Pulse Resp BP BP 01/18/25 07:00 98.1 F 75 16 165/70 01/18/25 03:34 97.6 F 69 15 129/52 01/17/25 23:57 67 01/17/25 23:15 99.2 F 76 17 127/53 01/17/25 22:15 100.3 F H 87 16 132/65 01/17/25 20:29 89 18 150/73 01/17/25 19:19 97.1 F L 67 16 135/66 01/17/25 12:01 99.9 F H 80 17 143/67 Pulse Ox 01/18/25 07:00 96 01/18/25 03:34 94 L 01/17/25 23:57 01/17/25 23:15 91 L 01/17/25 22:15 95 01/17/25 20:29 94 L 01/17/25 19:19 01/17/25 12:01 94 L Intake and Output 01/17/25 01/18/25 01/18/25 22:59 06:59 14:59 Intake Total 400 Output Total 3200 Balance -2800 Intake: Hemodialysis 400 Output: Hemodialysis 1800 Hemodialysis Net Amount 1400 Other: # Voids 1 Weight 58.967 kg GENERAL DESCRIPTION: Middle-age female up in bed, no distress. No tachypnea or accessory muscle of respiration use. HEENT: Shows Pallor , no scleral icterus. Oral mucous membrane is dry. NECK: Trachea central, no thyromegaly. LUNGS: Unlabored breathing. Clear to auscultation anteriorly. No wheeze or crackle. HEART: S1, S2, regular rate and rhythm. No loud murmur ABDOMEN: Soft, no tenderness , guarding or rigidity, no organomegaly EXTREMITIES: No edema of feet. SKIN: No rash, no masses palpable. NEUROLOGICAL: The patient is awake, alert, oriented x3, mood and affect normal. Results CBC & Chem 7: 01/20/25 05:27 01/19/25 06:26 Labs: Abnormal Lab Results - Last 24 Hours (Table) 01/17/25 01/17/25 01/17/25 Range/Units 12:49 12:49 12:49 RBC 3.01 L (4.10-5.20) 10*6/uL Hgb 10.2 L (12.0-15.0) g/dL Hct 30.8 L (37.2-46.3) % MCV 102.3 H (80.0-97.0) fL MCH 33.9 H (27.0-32.0) pg RDW (11.5-14.5) % MPV 9.4 L (9.5-12.2) fL Neutrophils # 8.19 H (1.80-7.70) 10*3/uL Lymphocytes # (0.90-5.00) 10*3/uL Sodium 133 L (137-145) mmol/L Chloride 97 L (98-107) mmol/L BUN 53 H (7-17) mg/dL Creatinine 2.85 H (0.52-1.04) mg/dL Glucose 199 H (74-99) mg/dL POC Glucose (mg/dL) (70-110) mg/dL Magnesium 1.5 L (1.6-2.3) mg/dL Troponin I 0.075 H* (0.000-0.034) ng/mL Lipase 18 L (23-300) U/L Procalcitonin (0.02-0.50) ng/mL Urine Appearance (Clear) Urine Protein (Negative) Urine Glucose (UA) (Negative) Urine Blood (Negative) Ur Leukocyte Esterase (Negative) Urine WBC (0-5) /hpf Urine WBC Clumps (None) /hpf Ur Squamous Epith Cells (0-4) /hpf 01/17/25 01/17/25 01/17/25 Range/Units 16:10 16:10 16:15 RBC (4.10-5.20) 10*6/uL Hgb (12.0-15.0) g/dL Hct (37.2-46.3) % MCV (80.0-97.0) fL MCH (27.0-32.0) pg RDW (11.5-14.5) % MPV (9.5-12.2) fL Neutrophils # (1.80-7.70) 10*3/uL Lymphocytes # (0.90-5.00) 10*3/uL Sodium 131 L (137-145) mmol/L Chloride (98-107) mmol/L BUN 54 H (7-17) mg/dL Creatinine 2.91 H (0.52-1.04) mg/dL Glucose 197 H (74-99) mg/dL POC Glucose (mg/dL) (70-110) mg/dL Magnesium (1.6-2.3) mg/dL Troponin I (0.000-0.034) ng/mL Lipase (23-300) U/L Procalcitonin 1.52 H (0.02-0.50) ng/mL Urine Appearance Turbid H (Clear) Urine Protein 2+ H (Negative) Urine Glucose (UA) Trace H (Negative) Urine Blood Moderate H (Negative) Ur Leukocyte Esterase Large H (Negative) Urine WBC >182 H (0-5) /hpf Urine WBC Clumps Many H (None) /hpf Ur Squamous Epith Cells 9 H (0-4) /hpf 01/17/25 01/17/25 01/18/25 Range/Units 17:49 20:12 00:02 RBC 2.74 L (4.10-5.20) 10*6/uL Hgb 9.3 L (12.0-15.0) g/dL Hct 27.8 L (37.2-46.3) % MCV 101.5 H (80.0-97.0) fL MCH 33.9 H (27.0-32.0) pg RDW 14.6 H (11.5-14.5) % MPV (9.5-12.2) fL Neutrophils # (1.80-7.70) 10*3/uL Lymphocytes # 0.83 L (0.90-5.00) 10*3/uL Sodium (137-145) mmol/L Chloride (98-107) mmol/L BUN (7-17) mg/dL Creatinine (0.52-1.04) mg/dL Glucose (74-99) mg/dL POC Glucose (mg/dL) 206 H 224 H (70-110) mg/dL Magnesium (1.6-2.3) mg/dL Troponin I (0.000-0.034) ng/mL Lipase (23-300) U/L Procalcitonin (0.02-0.50) ng/mL Urine Appearance (Clear) Urine Protein (Negative) Urine Glucose (UA) (Negative) Urine Blood (Negative) Ur Leukocyte Esterase (Negative) Urine WBC (0-5) /hpf Urine WBC Clumps (None) /hpf Ur Squamous Epith Cells (0-4) /hpf 01/18/25 Range/Units 06:14 RBC (4.10-5.20) 10*6/uL Hgb (12.0-15.0) g/dL Hct (37.2-46.3) % MCV (80.0-97.0) fL MCH (27.0-32.0) pg RDW (11.5-14.5) % MPV (9.5-12.2) fL Neutrophils # (1.80-7.70) 10*3/uL Lymphocytes # (0.90-5.00) 10*3/uL Sodium (137-145) mmol/L Chloride (98-107) mmol/L BUN (7-17) mg/dL Creatinine (0.52-1.04) mg/dL Glucose (74-99) mg/dL POC Glucose (mg/dL) 311 H (70-110) mg/dL Magnesium (1.6-2.3) mg/dL Troponin I (0.000-0.034) ng/mL Lipase (23-300) U/L Procalcitonin (0.02-0.50) ng/mL Urine Appearance (Clear) Urine Protein (Negative) Urine Glucose (UA) (Negative) Urine Blood (Negative) Ur Leukocyte Esterase (Negative) Urine WBC (0-5) /hpf Urine WBC Clumps (None) /hpf Ur Squamous Epith Cells (0-4) /hpf Assessment and Plan (1) Fever Current Visit: Yes Status: Acute Code(s): R50.9 - FEVER, UNSPECIFIED SNOMED Code(s): 465615535 (2) UTI (urinary tract infection) Current Visit: No Status: Acute Code(s): N39.0 - URINARY TRACT INFECTION, SITE NOT SPECIFIED SNOMED Code(s): 66482645 Plan: 1patient presented to hospital with generalized weakness not feeling well in this patient also have a fever positive UA with urinary symptoms concerning for symptomatic UTI in this patient who has previously grown gram-negative as well as VRE 2-we will continue patient on daptomycin however will add Rocephin while waiting for the culture to finalize 3-check ultrasound of the kidney bladder area to make sure evidence of any structural abnormality responsible for these recurrent UTI Question concern answered We will follow on clinical condition and cultures to further adjust medication if needed Thank you for this consultation we will follow the patient along with you Dictation was produced using [employer] software. please excuse any gramm atical, word or spelling errors. Time with Patient: Greater than 30
[2025-01-19] MEDS: METOCLOPRAMIDE 5 MG/ML 2 ML VIAL IVP PRN (01:13)
[2025-01-19 05:59] LABS: Glucose,Whole Blood 79 mg/dL (70-110)
--- NOTE | 2025-01-19 08:24 | US ---
EXAMINATION TYPE: US kidneys/renal and bladder DATE OF EXAM: 01/19/2025 Exam done portable COMPARISON: US 2023, CT 2024 CLINICAL INDICATION: Female, 59 years old with history of Recurrent UTI; TECHNIQUE: Grayscale imaging of the bilateral kidneys and urinary bladder: FINDINGS: EXAM MEASUREMENTS: Right Kidney: 11.1 x 4.4 x 4.6 cm Left Kidney: 11.6 x 4.3 x 4.5 cm Right Kidney: wnl Left Kidney: wnl Bladder: thickened wall Bilateral Jets seen: no Bilateral pleural effusions Trace fluid in RUQ near liver IMPRESSION: 1. No acute renal ultrasound findings. 2. Thickening of the urinary bladder. Correlate for cystitis. 3. Small amount of fluid is noted in the right upper quadrant. [facility], , 01/19/2025 8:22 AM
[2025-01-19] MEDS: METOPROLOL SUCCINATE (ER) 50 MG TAB.ER.24H PO SCH (09:30)
[2025-01-19] MEDS: TORSEMIDE 20 MG TAB PO SCH (09:30)
[2025-01-19] MEDS: cefTRIAXone 2 GM in DEXTROSE 5% IN WATER 50 ML IVPB SCH (09:31)
[2025-01-19 09:36] LABS: BUN/Creat Ratio 13.31 Ratio (12.00-20.00); Blood Urea Nitrogen 47.9 mg/dL (9.0-27.0); Calcium 8.3 mg/dL (8.7-10.3); Carbon Dioxide 23.6 mmol/L (21.6-31.8); Chloride 97 mmol/L (96-109); Glucose 81 mg/dL (70-110); Magnesium 1.7 mg/dL (1.5-2.4); Phosphorus 4.3 mg/dL (2.4-5.1); Potassium 4.2 mmol/L (3.5-5.5); Sodium 131 mmol/L (135-145)
--- NOTE | 2025-01-19 10:48 | P.PN ---
Subjective Progress Note Date: 01/19/25 hospital Course: Patient is a 59-year-old female with PMH of CAD with ischemic cardiomyopathy w ith EF of 15 to 20%, COPD, ESRD on dialysis MWF via R chest catheter, diabetes mellitus, fibromyalgia, GERD, hyperlipidemia, hypertension, and osteoarthritis presented to the emergency department Previously admitted from 09/13-09/20 for treatment of emphysematous cystitis with micorperforations, another admission 10/27-11/05 for chest pain, TTE was done and showed EF of 25 to 30%. Had treatment for ESBL UTI,, was evaluated for possible rectovesical fistula however imaging was inconclusive and patient had difficulties holding rectal contrast, she was discharged to nursing facility at that time. On arrival febrile 99.9, heart rate 80, BP 143/67, SpO2 94 on room air. Lab work remarkable for normal WBC, stable hemoglobin of 10.2, normal platelet count, coagulation panel, sodium 133, potassium 4.2, glucose 199, magnesium low 1.5, troponin elevated 0.0 75, BNP elevated 31,900, [place] [id number] Chest x-ray showed volume overload with small bilateral pleural effusions, personally reviewed. CT head was performed due to headaches and showed no acute process, remote lacunar injuries along with nonspecific white matter changes likely secondary to chronic microangiopathy. Admitted for evaluation of generalized weakness, hypomagnesemia, UTI with history of ESBL E. coli, started on daptomycin, ID consulted, nephrology consulted. ID added IV ceftriaxone 2 g daily. Renal bladder ultrasound showed signs of cystitis Dialysis catheter stopped functioning 01/17, reattempt on 01/20, vascular surgery consulted for catheter exchange For diabetic gastroparesis started on Reglan, QTc is prolonged, daily EKG ordered. Blood glucose is labile, needs close monitoring for insulin adjustment Pertinent Imaging: Renal bladder ultrasound showed signs of cystitis Subjective: no headache, complains of ongoing weakness Pertinent positives and negatives as discussed above, a complete review of systems was performed and all other systems are negative. Vitals Signs Reviewed. General: [nontoxic], [no distress], [appears at stated age], chronically ill appearing Derm: [warm], [dry], right-sided upper chest hemodialysis catheter in place, dressing appears clean Head: [atraumatic], [normocephalic], [symmetric] Eyes: [EOMI], [no lid lag], [anicteric sclera] Mouth: [no lip lesion], [mucus membranes moist] Cardiovascular: [S1S2 reg], [no murmur] Lungs: [CTA bilateral], [no rhonchi, no rales] , [no accessory muscle use] Abdominal: [soft], [ nontender to palpation], [no guarding], [no appreciable organomegaly] Ext: [no gross muscle atrophy], [no edema], [no contractures] Neuro: [ CN II-XI grossly intact], [no focal neuro deficits] Psych: [Alert], [oriented], [appropriate affect] Data Reviewed Today: Pertinent Labs: Sodium 131, potassium and chloride normal, magnesium 1.7, glu cose in 80s Assessment and Plan Generalized weakness hx of ESBL E. coli emphysematous cystitis UTI, gram-negative bacteria chronic diarrhea Hypomagnesemia -ID consulted, urine cultures pending, started on daptomycin SO/, ceftriaxone 2 g daily -Has around 3 bowel movements a day -Blood and urine cultures pending -Cepheid negative -Magnesium replaced with the ED with 1 g IV -Procalcitonin positive, generalized abdominal discomfort -Follow-up BMP, magnesium, phosphorus daily -PT OT History of CAD with stenting, history of CABG, ACS ruled out CHF with EF 25 to 30%, not in acute exacerbation - needs to be evaluated for ICD implantation QTC prolongation -daily ECG ordered ESRD on HD Malfunctioning hemodialysis catheter -Vascular surgery consulted -Continue HD per nephrology, History of methamphetamine use, depression: COPD not in exacerbation: Continue DuoNebs, Symbicort, Spiriva GERD: Continue Protonix Hypothyroidism: Continue Synthroid 176 Hyperlipidemia: Continue Lipitor Hypertension: Metoprolol, torsemide, Entresto Type II DM with hyperglycemia Basal bolus with Levemir 10 units and mealtime 3 units, continue SSI Blood glucose is very labile,Closely for insulin adjustment CODE STATUS:full DVT prophylaxis: heparin Anticipated discharge date: tbd Anticipated discharge place: TBD Objective - Vital Signs Vital signs: Vital Signs Temp 98.9 F 01/19/25 07:00 Pulse 77 01/19/25 07:00 Resp 16 01/19/25 07:00 BP 146/66 01/19/25 07:00 Pulse Ox 95 01/19/25 07:00 FiO2 Intake & Output 01/18/25 01/19/25 01/19/25 18:59 06:59 18:59 Intake Total 118 Balance 118 Intake: Oral 118 Other: Voiding Method Toilet # Voids 3 2 - Labs CBC & Chem 7: 01/18/25 00:02 01/19/25 06:26 Labs: Abnormal Lab Results - Last 24 Hours (Table) 01/18/25 01/18/25 01/18/25 Range/Units 11:59 17:18 19:39 Sodium (135-145) mmol/L BUN (9.0-27.0) mg/dL Creatinine (0.6-1.5) mg/dL Est GFR (CKD-EPI) (>=60) POC Glucose (mg/dL) 314 H 446 H 455 H (70-110) mg/dL Calcium (8.7-10.3) mg/dL 01/19/25 Range/Units 06:26 Sodium 131 L (135-145) mmol/L BUN 47.9 H (9.0-27.0) mg/dL Creatinine 3.6 H (0.6-1.5) mg/dL Est GFR (CKD-EPI) 14 L (>=60) POC Glucose (mg/dL) (70-110) mg/dL Calcium 8.3 L (8.7-10.3) mg/dL Microbiology - Last 24 Hours (Table) 01/17/25 16:15 Urine Culture - Preliminary Urine,Voided Gram Neg Bacilli
[2025-01-19 12:14] LABS: Glucose,Whole Blood 228 mg/dL (70-110)
--- NOTE | 2025-01-19 12:27 | P.PN ---
Subjective Patient is seen for follow-up for end-stage renal disease. No significant complaints today. Cathflo was placed in her dialysis catheter yesterday. Patient will be dialyzed tomorrow. Objective - Vital Signs Vital signs: Vital Signs Temp 98.9 F 01/19/25 07:00 Pulse 77 01/19/25 07:00 Resp 16 01/19/25 07:00 BP 146/66 01/19/25 07:00 Pulse Ox 95 01/19/25 07:00 FiO2 Intake & Output 01/18/25 01/19/25 01/19/25 18:59 06:59 18:59 Intake Total 118 Balance 118 Intake: Oral 118 Other: Voiding Method Toilet # Voids 3 2 - Exam Patient is awake, comfortable, no acute distress Examination of the heart S1 and S2 Examination of the lungs bilateral breath sounds are heard Examination of lower extremities shows chronic skin changes chronic edema 1+ bilaterally SCHEDULING SPECIALIST exam grossly intact - Labs CBC & Chem 7: 01/18/25 00:02 01/19/25 06:26 Labs: Abnormal Lab Results - Last 24 Hours (Table) 01/18/25 01/18/25 01/19/25 Range/Units 17:18 19:39 06:26 Sodium 131 L (135-145) mmol/L BUN 47.9 H (9.0-27.0) mg/dL Creatinine 3.6 H (0.6-1.5) mg/dL Est GFR (CKD-EPI) 14 L (>=60) POC Glucose (mg/dL) 446 H 455 H (70-110) mg/dL Calcium 8.3 L (8.7-10.3) mg/dL 01/19/25 Range/Units 12:13 Sodium (135-145) mmol/L BUN (9.0-27.0) mg/dL Creatinine (0.6-1.5) mg/dL Est GFR (CKD-EPI) (>=60) POC Glucose (mg/dL) 228 H (70-110) mg/dL Calcium (8.7-10.3) mg/dL Microbiology - Last 24 Hours (Table) 01/17/25 16:15 Urine Culture - Preliminary Urine,Voided Gram Neg Bacilli Assessment and Plan Assessment: 1. End-stage renal disease on hemodialysis on Monday schedule 2. Malfunctioning dialysis catheter, Cathflo placed until Monday. Possible n ew catheter placement on Monday if it continues to malfunction 3. Volume overload 4. Anemia of chronic disease 5. History of ESBL UTI in October 2024 6. Low-grade fever on admission with urine showing significant pyuria. No tenderness or discharge noted from dialysis catheter. Plan: Reattempt hemodialysis on Monday after Cathflo has dwelled over the weekend. Continue antibiotics Follow-up on urine culture
[2025-01-19 17:33] LABS: Glucose,Whole Blood 335 mg/dL (70-110)
[2025-01-19 20:00] LABS: Glucose,Whole Blood 256 mg/dL (70-110)
[2025-01-20 00:17] LABS: Glucose,Whole Blood 40 mg/dL (70-110)
[2025-01-20 00:17] LABS: Glucose,Whole Blood 44 mg/dL (70-110)
[2025-01-20] MEDS: DEXTROSE 50% SYRINGE 50 ML IVP PRN (00:18)
[2025-01-20 00:46] LABS: Glucose,Whole Blood 161 mg/dL (70-110)
[2025-01-20 05:15] LABS: Glucose,Whole Blood 42 mg/dL (70-110)
[2025-01-20 05:39] LABS: Glucose,Whole Blood 65 mg/dL (70-110)
[2025-01-20 06:01] LABS: Glucose,Whole Blood 95 mg/dL (70-110)
[2025-01-20 08:33] LABS: Basophils # (A) 0.02 X 10*3/uL (0.00-0.10); Basophils % (A) 0.3 %; Eosinophils # (A) 0.55 X 10*3/uL (0.04-0.35); Eosinophils % (A) 7.9 %; HCT 30.1 % (37.2-46.3); HGB 9.8 g/dL (12.0-15.0); Lymphocytes # (A) 1.59 X 10*3/uL (0.90-5.00); Lymphocytes % (A) 22.7 %; MCH 33.1 pg (27.0-32.0); MCHC 32.6 g/dL (32.0-37.0); MCV 101.7 FL (80.0-97.0); Mean Platelet Volume 9.9 FL (9.5-12.2); Monocytes # (A) 0.77 X 10*3/uL (0.20-1.00); NRBC Per 100 WBC 0 X 10*3/uL (0.00-0.01); Neutrophils # (A) 4.05 X 10*3/uL (1.80-7.70); Neutrophils % (A) 57.8 %; Platelet Count 231 X 10*3/uL (140-440); RBC 2.96 X 10*6/uL (4.10-5.20); RDW 14.6 % (11.5-14.5)
--- NOTE | 2025-01-20 10:43 | P.GSCN ---
History of Present Illness Consult date: 01/20/25 Reason for Consult: Dialysis port Requesting physician: Kenia Sevilla History of present illness: This is a pleasant 59-year-old female with a history of end-stage renal disease on dialysis Monday schedule with a right IJ tunnel catheter. Dialysis catheter was placed March 12, [address] Saldaña. Patient came to the emergency department Monday afternoon with complaints of generalized weakness. Patient had missed her dialysis on Monday and Monday secondary to not feeling well. Apparently last week Monday at outpatient dialysis patient had some difficulties with the dialysis. Then on Monday as inpatient only were able to run it for about an hour and a half. Vascular surgery was consulted for further evaluation. Patient was discussed with Dr. Sevilla through the weekend and recommended tPA to dwell over the weekend. Patient is currently undergoing hemodialysis with some higher pressures initially but awaiting further treatment. Patient states that she never followed up with Dr. Saldaña in her office and is supposed to follow-up for possible graft/fistula. Patient states she has some shortness of breath, no lower extremity swelling. Yesterday's labs sodium 131 potassium 4.2 BUN 47 creatinine 3.6 calcium 8.3 phosphorus 4.3 magnesium 1.7. Today's labs currently pending. Patient is currently being treated for urinary tract infection. Patient denies any redness, swelling or drainage surrounding catheter. Review of Systems A 14 point review systems was completed all pertinent positives and negatives as stated in the HPI. Past Medical History Past Medical History: Coronary Artery Disease (CAD), Chest Pain / Angina, Heart Failure, COPD, CVA/TIA, Diabetes Mellitus, Fibromyalgia, GERD/Reflux, Hyperlipidemia, Hypertension, Liver Disease, Myocardial Infarction (MD), Osteoarthritis (OA), Renal Disease, Thyroid Disorder Additional Past Medical History / Comment(s): NEUROPATHY BILATERAL FEET, DDD NECK AND LOWER BACK, hiatal hernia, hx hepatitis as a kid, hx fractrured left wrist, hx stroke 03/03/22-pt reports no issues/residual effects. loop recorder Last Myocardial Infarction Date:: 02/2024 History of Any Multi-Drug Resistant Organisms: ESBL, MRSA Year Discovered:: 01/17/25-ESBL; 2018-MRSA MDRO Source:: ESBL-urine; MRSA-stomach Past Surgical History: Adenoidectomy, Back Surgery, Bladder Surgery, Hysterectomy, Orthopedic Surgery, Tonsillectomy, Tubal Ligation Additional Past Surgical History / Comment(s): Debridement right foot, PICC line placed and later removed, bladder suspension, exploratory laparotomy, right great toe amputation, pins right in foot, cataracts removed, left wrist ORIF, loop heart monitor placed 02/2022. Past Anesthesia/Blood Transfusion Reactions: No Reported Reaction, Motion Sickness Additional Past Anesthesia/Blood Transfusion Reaction / Comm: . Type of Cardiac Device: Loop Past Psychological History: Anxiety, Depression Additional Psychological History / Comment(s): . Smoking Status: Former smoker Past Alcohol Use History: None Reported Additional Past Alcohol Use History / Comment(s): SMOKER SINCE , 1 PPD. no longer smokes Past Drug Use History: Marijuana, Methamphetamine Additional Drug Use History / Comment(s): States that she last used methamphetamine 1 yr ago - Past Family History Sister(s) Family Medical History: Coronary Artery Disease (CAD) Mother Family Medical History: Pulmonary Embolus Additional Family Medical History / Comment(s): . Father Additional Family Medical History / Comment(s): at 26yrs old--accident at work Medications and Allergies Home Medications Medication Instructions Recorded Confirmed Type Levothyroxine Sodium [Synthroid] 175 mcg PO DAILY 02/02/22 01/17/25 History traZODone HCL [Desyrel] 50 mg PO HS 02/09/24 01/17/25 History Acetaminophen Tab [Tylenol] 650 mg PO Q6H PRN 06/30/24 01/17/25 History Aspirin EC [Ecotrin Low Dose] 81 mg PO DAILY 06/30/24 01/17/25 History Atorvastatin [Lipitor] 40 mg PO DAILY 06/30/24 01/17/25 History Fluticasone/Umeclidin/Vilanter 1 puff INHALATION RT-DAILY 06/30/24 01/17/25 History [Trelegy Ellipta 100-62.5-25] Torsemide [Demadex] 40 mg PO DAILY #30 tab 07/05/24 01/17/25 Rx Insulin Aspart [NovoLOG Flexpen] See Protocol SQ AC-TID 08/26/24 01/17/25 History Loperamide [Imodium] 2 mg PO QID PRN cap 09/20/24 01/17/25 Rx Sacubitril/Valsartan [Entresto 24 1 tab PO BID 10/18/24 01/17/25 History mg-26 mg Tablet] Insulin Glargine,Hum.rec.anlog 12 - 15 units SQ DAILY@1300 10/27/24 01/17/25 History [Lantus Solostar Pen] Sertraline [Zoloft] 25 mg PO HS tab 11/05/24 01/17/25 Rx Diphenox-Atrop 2.5-0.025 mg 1 tab PO DIRECTED 01/17/25 01/17/25 History [Lomotil] Ipratropium [place] [Atrovent Hfa] 2 puff INHALATION RT-Q6H PRN 01/17/25 01/17/25 History Ipratropium-Albuterol Nebulize 3 ml INHALATION RT-Q6H PRN 01/17/25 01/17/25 History [Duoneb 0.5 mg-3 mg/3 ml Soln] Metoprolol Succinate (ER) [Toprol 50 mg PO DAILY 01/17/25 01/17/25 History Xl] Ondansetron [Zofran] 4 mg PO Q8H PRN 01/17/25 01/17/25 History Tamsulosin [Flomax] 0.4 mg PO HS 01/17/25 01/17/25 History Allergies Allergy/AdvReac Type Severity Reaction Status Date / Time Sulfa (Sulfonamide Allergy Rash/Hives Verified 01/17/25 15:23 Antibiotics) Surgical - Exam Vital Signs Temp Pulse Resp BP Pulse Ox 99.9 F H 80 17 143/67 94 L 01/17/25 12:01 01/17/25 12:01 01/17/25 12:01 01/17/25 12:01 01/17/25 12:01 General appearance: The patient is alert, oriented, appears in no acute distress. HET: Head is normocephalic and atraumatic. Pupils are equal and reactive. Neck: Supple. Chest: Right upper chest with right IJ tunneled catheter in place. No surrounding redness, swelling or drainage. Heart: Regular. Lungs: Equal expansion, normal respiratory effort. Abdomen: Soft, nontender, nondistended. Extremities: Normal skin color and turgor. No lower extremities edema. Neurological: Alert and oriented. Results - Labs 01/20/25 05:27 01/20/25 05:27 Abnormal Lab Results - Last 24 Hours (Table) 01/19/25 01/19/25 01/19/25 Range/Units 06:26 12:13 17:32 RBC (4.10-5.20) X 10*6/uL Hgb (12.0-15.0) g/dL Hct (37.2-46.3) % MCV (80.0-97.0) FL MCH (27.0-32.0) pg RDW (11.5-14.5) % Eosinophils # (0.04-0.35) X 10*3/uL Sodium 131 L (135-145) mmol/L BUN 47.9 H (9.0-27.0) mg/dL Creatinine 3.6 H (0.6-1.5) mg/dL Est GFR (CKD-EPI) 14 L (>=60) POC Glucose (mg/dL) 228 H 335 H (70-110) mg/dL Calcium 8.3 L (8.7-10.3) mg/dL 01/19/25 01/20/25 01/20/25 Range/Units 19:59 00:00 00:16 RBC (4.10-5.20) X 10*6/uL Hgb (12.0-15.0) g/dL Hct (37.2-46.3) % MCV (80.0-97.0) FL MCH (27.0-32.0) pg RDW (11.5-14.5) % Eosinophils # (0.04-0.35) X 10*3/uL Sodium (135-145) mmol/L BUN (9.0-27.0) mg/dL Creatinine (0.6-1.5) mg/dL Est GFR (CKD-EPI) (>=60) POC Glucose (mg/dL) 256 H 40 L* 44 L* (70-110) mg/dL Calcium (8.7-10.3) mg/dL 01/20/25 01/20/25 01/20/25 Range/Units 00:44 05:13 05:27 RBC 2.96 L (4.10-5.20) X 10*6/uL Hgb 9.8 L (12.0-15.0) g/dL Hct 30.1 L (37.2-46.3) % MCV 101.7 H (80.0-97.0) FL MCH 33.1 H (27.0-32.0) pg RDW 14.6 H (11.5-14.5) % Eosinophils # 0.55 H (0.04-0.35) X 10*3/uL Sodium (135-145) mmol/L BUN (9.0-27.0) mg/dL Creatinine (0.6-1.5) mg/dL Est GFR (CKD-EPI) (>=60) POC Glucose (mg/dL) 161 H 42 L* (70-110) mg/dL Calcium (8.7-10.3) mg/dL 01/20/25 Range/Units 05:37 RBC (4.10-5.20) X 10*6/uL Hgb (12.0-15.0) g/dL Hct (37.2-46.3) % MCV (80.0-97.0) FL MCH (27.0-32.0) pg RDW (11.5-14.5) % Eosinophils # (0.04-0.35) X 10*3/uL Sodium (135-145) mmol/L BUN (9.0-27.0) mg/dL Creatinine (0.6-1.5) mg/dL Est GFR (CKD-EPI) (>=60) POC Glucose (mg/dL) 65 L (70-110) mg/dL Calcium (8.7-10.3) mg/dL Microbiology - Last 24 Hours (Table) 01/18/25 15:08 Blood Culture - Preliminary Blood 01/17/25 16:15 Urine Culture - Final Urine,Voided Escherichia coli ESBL Diabetes panel 01/19/25 Range/Units 06:26 Sodium 131 L (135-145) mmol/L Potassium 4.2 (3.5-5.5) mmol/L Chloride 97 (96-109) mmol/L Carbon Dioxide 23.6 (21.6-31.8) mmol/L BUN 47.9 H (9.0-27.0) mg/dL Creatinine 3.6 H (0.6-1.5) mg/dL Glucose 81 (70-110) mg/dL Calcium 8.3 L (8.7-10.3) mg/dL Calcium panel 01/19/25 Range/Units 06:26 Calcium 8.3 L (8.7-10.3) mg/dL Phosphorus 4.3 (2.4-5.1) mg/dL Pituitary panel 01/19/25 Range/Units 06:26 Sodium 131 L (135-145) mmol/L Potassium 4.2 (3.5-5.5) mmol/L Chloride 97 (96-109) mmol/L Carbon Dioxide 23.6 (21.6-31.8) mmol/L BUN 47.9 H (9.0-27.0) mg/dL Creatinine 3.6 H (0.6-1.5) mg/dL Glucose 81 (70-110) mg/dL Calcium 8.3 L (8.7-10.3) mg/dL Adrenal panel 01/19/25 Range/Units 06:26 Sodium 131 L (135-145) mmol/L Potassium 4.2 (3.5-5.5) mmol/L Chloride 97 (96-109) mmol/L Carbon Dioxide 23.6 (21.6-31.8) mmol/L BUN 47.9 H (9.0-27.0) mg/dL Creatinine 3.6 H (0.6-1.5) mg/dL Glucose 81 (70-110) mg/dL Calcium 8.3 L (8.7-10.3) mg/dL Assessment and Plan Assessment: 1. End-stage renal disease on hemodialysis 2. Malfunctioning tunneled catheter 3. Urinary tract infection Plan: 1. tPA was recommended and administered to dwell through the weekend 2. Hemodialysis per recommendations from nephrology 3. According to dialysis nurse poor flow with inefficiency for dialysis however were able to get 2.5 L off today. Recommending exchange. 4. Timing for exchange to be determined. Possibly tomorrow or Monday. Can be done as an outpatient as well. Thank you for this consultation, we will continue to follow. The impression and plan of care has been dictated as directed. Dr. Saldaña I performed a history and examination of this patient, discussed the same with the dictator. I agree with the dictator's note ,documented as a scribe. Any additional findings or plans will be noted.
--- NOTE | 2025-01-20 10:53 | P.PN ---
Subjective Progress Note Date: 01/19/25 Principal diagnosis: Recurrent cystitis Patient is a 59-year-old female with a past medical history significant for Coronary Artery Disease (CAD), Chest Pain / Angina, Heart Failure, COPD, CVA/TIA, Diabetes Mellitus, Fibromyalgia, GERD/Reflux, Hyperlipidemia, Hypertension, Liver Disease, Myocardial Infarction ([place]), Osteoarthritis (OA), Renal Disease, Thyroid Disorder, end-stage renal disease on dialysis through the right subclavian perma catheter also with history of recurrent cystitis, presented to hospital with abdominal pain urinary symptom and positive UA concerning for cystitis prompting this consultation. On today's evaluation that is 01/19/2025, Patient is afebrile patient is currently on room air and denies having any shortness of breath, the patient denies any chest pain or cough, the patient denies any nausea vomiting still complaining of lower abdominal discomfort and cloudy urine. Patient did have a creatinine of 3.6 urine culture currently pending Objective - Vital Signs Vital signs: Vital Signs Temp 97.5 F L 01/19/25 19:08 Pulse 65 01/19/25 19:08 Resp 18 01/19/25 19:08 BP 151/71 01/19/25 19:08 Pulse Ox 98 01/19/25 19:08 FiO2 Intake & Output 01/19/25 01/19/25 01/20/25 06:59 18:59 06:59 Intake Total 236 Balance 236 Intake: Oral 236 Other: Voiding Method Toilet # Voids 2 3 1 - Exam GENERAL DESCRIPTION: Middle-age female up in the chair in no distress RESPIRATORY SYSTEM: Unlabored breathing , clear to auscultation anteriorly HEART: S1 S2 regular rate and rhythm , ABDOMEN: Soft , no tenderness EXTREMITIES: No edema feet - Labs CBC & Chem 7: 01/20/25 05:27 01/19/25 06:26 Labs: Abnormal Lab Results - Last 24 Hours (Table) 01/19/25 01/19/25 01/19/25 Range/Units 06:26 12:13 17:32 Sodium 131 L (135-145) mmol/L BUN 47.9 H (9.0-27.0) mg/dL Creatinine 3.6 H (0.6-1.5) mg/dL Est GFR (CKD-EPI) 14 L (>=60) POC Glucose (mg/dL) 228 H 335 H (70-110) mg/dL Calcium 8.3 L (8.7-10.3) mg/dL 01/19/25 Range/Units 19:59 Sodium (135-145) mmol/L BUN (9.0-27.0) mg/dL Creatinine (0.6-1.5) mg/dL Est GFR (CKD-EPI) (>=60) POC Glucose (mg/dL) 256 H (70-110) mg/dL Calcium (8.7-10.3) mg/dL Microbiology - Last 24 Hours (Table) 01/17/25 16:15 Urine Culture - Preliminary Urine,Voided Gram Neg Bacilli Assessment and Plan (1) Fever Current Visit: Yes Status: Acute Code(s): R50.9 - FEVER, UNSPECIFIED SNOMED Code(s): 776325689 (2) UTI (urinary tract infection) Current Visit: No Status: Acute Code(s): N39.0 - URINARY TRACT INFECTION, SITE NOT SPECIFIED SNOMED Code(s): 15665767 Plan: 1patient presented to hospital with generalized weakness not feeling well in this patient also have a fever positive UA with urinary symptoms concerning for symptomatic UTI in this patient who has previously grown gram-negative as well as VRE 2--ultrasound of the kidney bladder area did not show any hydronephrosis or stool evidence of cystitis 3patient will be treated with Rocephin and daptomycin while waiting for the culture to finalize Dictation was produced using [employer] dictation software. please excuse any grammatical, word or spelling errors. Time with Patient: Less than 30
[2025-01-20 11:25] LABS: Magnesium 1.6 mg/dL (1.5-2.4)
[2025-01-20 12:07] LABS: BUN/Creat Ratio 14.86 Ratio (12.00-20.00); Calcium 8.3 mg/dL (8.7-10.3); Carbon Dioxide 20.3 mmol/L (21.6-31.8); Chloride 99 mmol/L (96-109); Glucose 42 mg/dL (70-110); Potassium 3.9 mmol/L (3.5-5.5); Sodium 136 mmol/L (135-145)
[2025-01-20 12:39] LABS: Glucose,Whole Blood 165 mg/dL (70-110)
--- NOTE | 2025-01-20 12:51 | P.PN ---
Subjective Progress Note Date: 01/20/25 Principal diagnosis: Recurrent cystitis Patient is a 59-year-old female with a past medical history significant for Coronary Artery Disease (CAD), Chest Pain / Angina, Heart Failure, COPD, CVA/TIA, Diabetes Mellitus, Fibromyalgia, GERD/Reflux, Hyperlipidemia, Hypertension, Liver Disease, Myocardial Infarction ([place]), Osteoarthritis (OA), Renal Disease, Thyroid Disorder, end-stage renal disease on dialysis through the right subclavian perma catheter also with history of recurrent cystitis, presented to hospital with abdominal pain urinary symptom and positive UA concerning for cystitis prompting this consultation. On today's evaluation that is 01/20/2025, patient has been afebrile, patient is breathing comfortably and is currently on room air, patient denies having any chest pain and cough, patient denies nausea vomiting still some lower abdominal discomfort undergoing dialysis. Patient white count 7.0, creatinine 3.5 urine did grow ESBL E. coli blood cultur e negative Objective - Vital Signs Vital signs: Vital Signs Temp 98.1 F 01/20/25 07:00 Pulse 67 01/20/25 07:00 Resp 16 01/20/25 07:00 BP 133/66 01/20/25 07:00 Pulse Ox 97 01/20/25 00:45 FiO2 Intake & Output 01/19/25 01/20/25 01/20/25 18:59 06:59 18:59 Intake Total 236 Balance 236 Intake: Oral 236 Other: Voiding Method Toilet # Voids 3 2 - Exam GENERAL DESCRIPTION: Middle-age female up in the chair in no distress RESPIRATORY SYSTEM: Unlabored breathing , clear to auscultation anteriorly HEART: S1 S2 regular rate and rhythm , ABDOMEN: Soft , no tenderness EXTREMITIES: No edema feet - Labs CBC & Chem 7: 01/20/25 05:27 01/20/25 05:27 Labs: Abnormal Lab Results - Last 24 Hours (Table) 01/19/25 01/19/25 01/19/25 Range/Units 12:13 17:32 19:59 RBC (4.10-5.20) X 10*6/uL Hgb (12.0-15.0) g/dL Hct (37.2-46.3) % MCV (80.0-97.0) FL MCH (27.0-32.0) pg RDW (11.5-14.5) % Eosinophils # (0.04-0.35) X 10*3/uL POC Glucose (mg/dL) 228 H 335 H 256 H (70-110) mg/dL 01/20/25 01/20/25 01/20/25 Range/Units 00:00 00:16 00:44 RBC (4.10-5.20) X 10*6/uL Hgb (12.0-15.0) g/dL Hct (37.2-46.3) % MCV (80.0-97.0) FL MCH (27.0-32.0) pg RDW (11.5-14.5) % Eosinophils # (0.04-0.35) X 10*3/uL POC Glucose (mg/dL) 40 L* 44 L* 161 H (70-110) mg/dL 01/20/25 01/20/25 01/20/25 Range/Units 05:13 05:27 05:37 RBC 2.96 L (4.10-5.20) X 10*6/uL Hgb 9.8 L (12.0-15.0) g/dL Hct 30.1 L (37.2-46.3) % MCV 101.7 H (80.0-97.0) FL MCH 33.1 H (27.0-32.0) pg RDW 14.6 H (11.5-14.5) % Eosinophils # 0.55 H (0.04-0.35) X 10*3/uL POC Glucose (mg/dL) 42 L* 65 L (70-110) mg/dL Microbiology - Last 24 Hours (Table) 01/18/25 15:08 Blood Culture - Preliminary Blood 01/17/25 16:15 Urine Culture - Final Urine,Voided Escherichia coli ESBL Assessment and Plan (1) Fever Current Visit: Yes Status: Acute Code(s): R50.9 - FEVER, UNSPECIFIED SNOMED Code(s): 372945744 (2) UTI (urinary tract infection) Current Visit: No Status: Acute Code(s): N39.0 - URINARY TRACT INFECTION, SITE NOT SPECIFIED SNOMED Code(s): 13145608 Plan: 1patient presented to hospital with generalized weakness not feeling well in this patient also have a fever positive UA with urinary symptoms concerning for symptomatic UTI in this patient who has 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 coli will discontinue Rocephin and daptomycin start the patient on Invanz 500 mg daily see clinical response Dictation was produced using [employer] dictation software. please excuse any grammatical, word or spelling errors. Time with Patient: Less than 30
[2025-01-20] MEDS: ERTAPENEM 0.5 GM in SODIUM CHLORIDE 0.9% 50 ML IVPB SCH (13:37)
--- NOTE | 2025-01-20 16:01 | P.PN ---
Subjective Progress Note Date: 01/20/25 Patient was seen and examined. She reports no complaints this afternoon. Multiple hypoglycemic episodes overnight. Vascular surgery plans on replacing HD catheter. CBC and BMP significant for RBC 2.96, Hg 9.8, Hct 30.1, MCV 101.7, bicarb 20.3, AG 16.7, BUN 52, Cr 3.5, glu 42, Ca 8.3. Mag 1.6. General: [nontoxic], [no distress], [appears at stated age], chronically ill appearing Derm: [warm], [dry], right-sided upper chest hemodialysis catheter in place, dressing appears clean Head: [atraumatic], [normocephalic], [symmetric] Eyes: [EOMI], [no lid lag], [anicteric sclera] Mouth: [no lip lesion], [mucus membranes moist] Cardiovascular: [S1S2 reg], [no murmur] Lungs: [CTA bilateral], [no rhonchi, no rales] , [no accessory muscle use] Ext: [no gross muscle atrophy], [no edema], [no contractures] Neuro: [no focal neuro deficits] Psych: [Alert], [oriented], [appropriate affect] Generalized weakness History of ESBL E. coli emphysematous cystitis UTI, gram-negative bacteria Hypomagnesemia -ID consulted, urine culture ESBL, started on Ertapenem 01/20. -Blood Cx prelim neg so far -Procalcitonin positive, generalized abdominal discomfort -Follow-up BMP, magnesium, phosphorus daily -PT OT DM with hypoglycemia -Stop Levemir -Continue ISS with 3 units Novolog with meals -Accuchecks ACHS along with hypoglycemic precautions History of CAD with stenting, history of CABG, ACS ruled out CHF with EF 25 to 30%, not in acute exacerbation -needs to be evaluated for ICD implantation QTC prolongation -daily ECG ordered ESRD on HD Malfunctioning hemodialysis catheter -Vascular surgery consulted, plans to replace HD catheter today -Continue HD per nephrology, History of methamphetamine use Depression: COPD not in exacerbation: Continue DuoNebs, Symbicort, Spiriva GERD: Continue Protonix Hypothyroidism: Continue Synthroid 176 Hyperlipidemia: Continue Lipitor Hypertension: Metoprolol, torsemide, Entresto CODE STATUS:full DVT prophylaxis: heparin Objective - Vital Signs Vital signs: Vital Signs Temp 97.8 F 01/20/25 15:00 Pulse 74 01/20/25 15:00 Resp 17 01/20/25 15:00 BP 137/73 01/20/25 15:00 Pulse Ox 93 L 01/20/25 15:00 FiO2 Intake & Output 01/19/25 01/20/25 01/20/25 18:59 06:59 18:59 Intake Total 236 180 Balance 236 180 Intake: Oral 236 180 Other: Voiding Method Toilet # Voids 3 2 3 # Bowel Movements 2 - Labs CBC & Chem 7: 01/20/25 05:27 01/20/25 05:27 Labs: Abnormal Lab Results - Last 24 Hours (Table) 01/19/25 01/19/25 01/20/25 Range/Units 17:32 19:59 00:00 RBC (4.10-5.20) X 10*6/uL Hgb (12.0-15.0) g/dL Hct (37.2-46.3) % MCV (80.0-97.0) FL MCH (27.0-32.0) pg RDW (11.5-14.5) % Eosinophils # (0.04-0.35) X 10*3/uL Carbon Dioxide (21.6-31.8) mmol/L Anion Gap (4.00-12.00) mmol/L BUN (9.0-27.0) mg/dL Creatinine (0.6-1.5) mg/dL Est GFR (CKD-EPI) (>=60) Glucose (70-110) mg/dL POC Glucose (mg/dL) 335 H 256 H 40 L* (70-110) mg/dL Calcium (8.7-10.3) mg/dL 01/20/25 01/20/25 01/20/25 Range/Units 00:16 00:44 05:13 RBC (4.10-5.20) X 10*6/uL Hgb (12.0-15.0) g/dL Hct (37.2-46.3) % MCV (80.0-97.0) FL MCH (27.0-32.0) pg RDW (11.5-14.5) % Eosinophils # (0.04-0.35) X 10*3/uL Carbon Dioxide (21.6-31.8) mmol/L Anion Gap (4.00-12.00) mmol/L BUN (9.0-27.0) mg/dL Creatinine (0.6-1.5) mg/dL Est GFR (CKD-EPI) (>=60) Glucose (70-110) mg/dL POC Glucose (mg/dL) 44 L* 161 H 42 L* (70-110) mg/dL Calcium (8.7-10.3) mg/dL 01/20/25 01/20/25 01/20/25 Range/Units 05:27 05:27 05:37 RBC 2.96 L (4.10-5.20) X 10*6/uL Hgb 9.8 L (12.0-15.0) g/dL Hct 30.1 L (37.2-46.3) % MCV 101.7 H (80.0-97.0) FL MCH 33.1 H (27.0-32.0) pg RDW 14.6 H (11.5-14.5) % Eosinophils # 0.55 H (0.04-0.35) X 10*3/uL Carbon Dioxide 20.3 L (21.6-31.8) mmol/L Anion Gap 16.70 H (4.00-12.00) mmol/L BUN 52.0 H (9.0-27.0) mg/dL Creatinine 3.5 H (0.6-1.5) mg/dL Est GFR (CKD-EPI) 14 L (>=60) Glucose 42 A* (70-110) mg/dL POC Glucose (mg/dL) 65 L (70-110) mg/dL Calcium 8.3 L (8.7-10.3) mg/dL 01/20/25 Range/Units 12:38 RBC (4.10-5.20) X 10*6/uL Hgb (12.0-15.0) g/dL Hct (37.2-46.3) % MCV (80.0-97.0) FL MCH (27.0-32.0) pg RDW (11.5-14.5) % Eosinophils # (0.04-0.35) X 10*3/uL Carbon Dioxide (21.6-31.8) mmol/L Anion Gap (4.00-12.00) mmol/L BUN (9.0-27.0) mg/dL Creatinine (0.6-1.5) mg/dL Est GFR (CKD-EPI) (>=60) Glucose (70-110) mg/dL POC Glucose (mg/dL) 165 H (70-110) mg/dL Calcium (8.7-10.3) mg/dL Microbiology - Last 24 Hours (Table) 01/18/25 15:08 Blood Culture - Preliminary Blood 01/17/25 16:15 Urine Culture - Final Urine,Voided Escherichia coli ESBL
--- NOTE | 2025-01-20 16:57 | P.PN ---
Subjective Patient is seen for follow-up for end-stage renal disease. No significant complaints today. Seen on hemodialysis. Catheter is working but blood flow remains around 300 and cannot be increased. Patient had Cathflo to [place] for about 2 days. 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 - Labs CBC & Chem 7: 01/20/25 05:27 01/20/25 05:27 Labs: Abnormal Lab Results - Last 24 Hours (Table) 01/19/25 01/19/25 01/20/25 Range/Units 17:32 19:59 00:00 RBC (4.10-5.20) X 10*6/uL Hgb (12.0-15.0) g/dL Hct (37.2-46.3) % MCV (80.0-97.0) FL MCH (27.0-32.0) pg RDW (11.5-14.5) % Eosinophils # (0.04-0.35) X 10*3/uL Carbon Dioxide (21.6-31.8) mmol/L Anion Gap (4.00-12.00) mmol/L BUN (9.0-27.0) mg/dL Creatinine (0.6-1.5) mg/dL Est GFR (CKD-EPI) (>=60) Glucose (70-110) mg/dL POC Glucose (mg/dL) 335 H 256 H 40 L* (70-110) mg/dL Calcium (8.7-10.3) mg/dL 01/20/25 01/20/25 01/20/25 Range/Units 00:16 00:44 05:13 RBC (4.10-5.20) X 10*6/uL Hgb (12.0-15.0) g/dL Hct (37.2-46.3) % MCV (80.0-97.0) FL MCH (27.0-32.0) pg RDW (11.5-14.5) % Eosinophils # (0.04-0.35) X 10*3/uL Carbon Dioxide (21.6-31.8) mmol/L Anion Gap (4.00-12.00) mmol/L BUN (9.0-27.0) mg/dL Creatinine (0.6-1.5) mg/dL Est GFR (CKD-EPI) (>=60) Glucose (70-110) mg/dL POC Glucose (mg/dL) 44 L* 161 H 42 L* (70-110) mg/dL Calcium (8.7-10.3) mg/dL 01/20/25 01/20/25 01/20/25 Range/Units 05:27 05:27 05:37 RBC 2.96 L (4.10-5.20) X 10*6/uL Hgb 9.8 L (12.0-15.0) g/dL Hct 30.1 L (37.2-46.3) % MCV 101.7 H (80.0-97.0) FL MCH 33.1 H (27.0-32.0) pg RDW 14.6 H (11.5-14.5) % Eosinophils # 0.55 H (0.04-0.35) X 10*3/uL Carbon Dioxide 20.3 L (21.6-31.8) mmol/L Anion Gap 16.70 H (4.00-12.00) mmol/L BUN 52.0 H (9.0-27.0) mg/dL Creatinine 3.5 H (0.6-1.5) mg/dL Est GFR (CKD-EPI) 14 L (>=60) Glucose 42 A* (70-110) mg/dL POC Glucose (mg/dL) 65 L (70-110) mg/dL Calcium 8.3 L (8.7-10.3) mg/dL 01/20/25 Range/Units 12:38 RBC (4.10-5.20) X 10*6/uL Hgb (12.0-15.0) g/dL Hct (37.2-46.3) % MCV (80.0-97.0) FL MCH (27.0-32.0) pg RDW (11.5-14.5) % Eosinophils # (0.04-0.35) X 10*3/uL Carbon Dioxide (21.6-31.8) mmol/L Anion Gap (4.00-12.00) mmol/L BUN (9.0-27.0) mg/dL Creatinine (0.6-1.5) mg/dL Est GFR (CKD-EPI) (>=60) Glucose (70-110) mg/dL POC Glucose (mg/dL) 165 H (70-110) mg/dL Calcium (8.7-10.3) mg/dL Microbiology - Last 24 Hours (Table) 01/18/25 15:08 Blood Culture - Preliminary Blood 01/17/25 16:15 Urine Culture - Final Urine,Voided Escherichia coli ESBL Assessment and Plan Assessment: 1. End-stage renal disease on hemodialysis on Monday schedule 2. Malfunctioning dialysis catheter, Cathflo placed until Monday. Possible new catheter placement on Monday if it continues to malfunction 3. Volume overload 4. Anemia of chronic disease 5. History of ESBL UTI in October 2024 6. Low-grade fever on admission with urine showing significant pyuria. No tenderness or discharge noted from dialysis catheter. Plan: Recommend new catheter placement as blood flow remains around 300 and cannot be increased. Patient had Cathflo swelling for 2 days over the weekend. Continue antibiotics
[2025-01-20] MEDS: DAPTOmycin 350 MG in SODIUM CHLORIDE 0.9% 50 ML IVPB SCH (17:12)
[2025-01-20 17:31] LABS: Glucose,Whole Blood 326 mg/dL (70-110)
[2025-01-20 20:28] LABS: Glucose,Whole Blood 230 mg/dL (70-110)
[2025-01-21 05:54] LABS: Glucose,Whole Blood 424 mg/dL (70-110)
[2025-01-21 09:06] LABS: African American GFR (CKD) 22 (>60 ml/min/1.73 sqM); Anion Gap 10 mmol/L; Blood Urea Nitrogen 32 mg/dL (7-17); Calcium 8.2 mg/dL (8.4-10.2); Carbon Dioxide 23 mmol/L (22-30); Chloride 95 mmol/L (98-107); Glucose 443 mg/dL (74-99); Magnesium 1.7 mg/dL (1.6-2.3); Non-African American GFR(CKD) 19 (>60 ml/min/1.73 sqM); Potassium 3.8 mmol/L (3.5-5.1); Sodium 128 mmol/L (137-145)
--- NOTE | 2025-01-21 10:19 | P.PN ---
Subjective Progress Note Date: 01/21/25 Principal diagnosis: Malfunctioning HD catheter Patient is seen and examined today as a follow-up. Yesterday she was seen by infectious disease with urine culture finalized. Antibiotics changed to IV Invanz. Yesterday patient underwent hemodialysis with 2.5 L removed. Dialysis nurse reported that there was poor flow, causing inefficiency however patient was able to get full dialysis treatment. Patient currently denies any shortness of breath or chest pain. No lower extremity swelling. Objective - Vital Signs Vital signs: Vital Signs Temp 97.6 F 01/21/25 07:00 Pulse 65 01/21/25 07:00 Resp 16 01/21/25 07:00 BP 147/69 01/21/25 07:00 Pulse Ox 94 L 01/21/25 07:00 FiO2 Intake & Output 01/20/25 01/21/25 01/21/25 18:59 06:59 18:59 Intake Total 680 Output Total 5500 Balance -4820 Intake: Oral 180 Hemodialysis 500 Output: Hemodialysis 3000 Hemodialysis Net Amount 2500 Other: Voiding Method Toilet # Voids 3 3 # Bowel Movements 2 - Exam General appearance: The patient is alert, oriented, appears in no acute distress. HET: Head is normocephalic and atraumatic. Pupils are equal and reactive. Neck: Supple. Chest: Right upper chest with right IJ tunneled catheter in place. No surrounding redness, swelling or drainage. Heart: Regular. Lungs: Equal expansion, normal respiratory effort. Abdomen: Soft, nondistended. Extremities: Normal skin color and turgor. No lower extremity edema. Neurological: No focal deficits. Alert and oriented. - Labs CBC & Chem 7: 01/20/25 05:27 01/21/25 08:26 Labs: Abnormal Lab Results - Last 24 Hours (Table) 01/20/25 01/20/25 01/20/25 Range/Units 05:27 05:27 12:38 RBC 2.96 L (4.10-5.20) X 10*6/uL Hgb 9.8 L (12.0-15.0) g/dL Hct 30.1 L (37.2-46.3) % MCV 101.7 H (80.0-97.0) FL MCH 33.1 H (27.0-32.0) pg RDW 14.6 H (11.5-14.5) % Eosinophils # 0.55 H (0.04-0.35) X 10*3/uL Carbon Dioxide 20.3 L (21.6-31.8) mmol/L Anion Gap 16.70 H (4.00-12.00) mmol/L BUN 52.0 H (9.0-27.0) mg/dL Creatinine 3.5 H (0.6-1.5) mg/dL Est GFR (CKD-EPI) 14 L (>=60) Glucose 42 A* (70-110) mg/dL POC Glucose (mg/dL) 165 H (70-110) mg/dL Calcium 8.3 L (8.7-10.3) mg/dL 01/20/25 01/20/25 01/21/25 Range/Units 17:29 20:26 05:51 RBC (4.10-5.20) X 10*6/uL Hgb (12.0-15.0) g/dL Hct (37.2-46.3) % MCV (80.0-97.0) FL MCH (27.0-32.0) pg RDW (11.5-14.5) % Eosinophils # (0.04-0.35) X 10*3/uL Carbon Dioxide (21.6-31.8) mmol/L Anion Gap (4.00-12.00) mmol/L BUN (9.0-27.0) mg/dL Creatinine (0.6-1.5) mg/dL Est GFR (CKD-EPI) (>=60) Glucose (70-110) mg/dL POC Glucose (mg/dL) 326 H 230 H 424 H (70-110) mg/dL Calcium (8.7-10.3) mg/dL Microbiology - Last 24 Hours (Table) 01/18/25 15:08 Blood Culture - Preliminary Blood Assessment and Plan Assessment: 1. End-stage renal disease on hemodialysis 2. Malfunctioning tunneled catheter with poor flow but usable 3. Urinary tract infection, ESBL Plan: 1. Hemodialysis per recommendations from nephrology 2. According to dialysis nurse poor flow with inefficiency for dialysis however were able to get 2.5 L off today. Recommending exchange. 3. Antibiotics per recommendation from infectious disease for UTI treatment. Was switched to Invanz yesterday. 4. Plan for tunneled dialysis catheter exchange , 01/22/2025. This can be done as an outpatient if plan is for discharge. This has been discussed with patient and the primary medical team following. Thank you for this consultation, we will continue to follow. The impression and plan of care has been dictated as directed. Dr. Asher I performed a history and examination of this patient, discussed the same with the dictator. I agree with the dictator's note ,documented as a scribe. Any additional findings or plans will be noted.
[2025-01-21 11:54] LABS: Glucose,Whole Blood 436 mg/dL (70-110)
[2025-01-21] MEDS: INSULIN GLARGINE (LANTUS) 100 UNIT/ML SYR SQ SCH (13:39)
--- NOTE | 2025-01-21 15:08 | P.PN ---
Subjective Progress Note Date: 01/21/25 Principal diagnosis: Recurrent cystitis Patient is a 59-year-old female with a past medical history significant for Coronary Artery Disease (CAD), Chest Pain / Angina, Heart Failure, COPD, CVA/TIA, Diabetes Mellitus, Fibromyalgia, GERD/Reflux, Hyperlipidemia, Hypertension, Liver Disease, Myocardial Infarction (MS), Osteoarthritis (OA), Renal Disease, Thyroid Disorder, end-stage renal disease on dialysis through the right subclavian perma catheter also with history of recurrent cystitis, presented to hospital with abdominal pain urinary symptom and positive UA concerning for cystitis prompting this consultation. On today's evaluation that is 01/21/2025, Patient is afebrile this morning patient denies having any chest pain shortness of breath or cough, the patient is currently on room air, patient still complaining of some lower abdominal discomfort and nausea but no vomiting or diarrhea. Patient did have a creatinine 2.60 blood culture negative urine with ESBL E. coli Objective - Vital Signs Vital signs: Vital Signs Temp 97.6 F 01/21/25 07:00 Pulse 65 01/21/25 07:00 Resp 16 01/21/25 07:00 BP 147/69 01/21/25 07:00 Pulse Ox 94 L 01/21/25 07:00 FiO2 Intake & Output 01/20/25 01/21/25 01/21/25 18:59 06:59 18:59 Intake Total 680 60 Output Total 5500 Balance -4820 60 Intake: Oral 180 60 Hemodialysis 500 Output: Hemodialysis 3000 Hemodialysis Net Amount 2500 Other: Voiding Method Toilet Toilet # Voids 3 3 # Bowel Movements 2 - Exam GENERAL DESCRIPTION: Middle-age female up in the chair in no distress RESPIRATORY SYSTEM: Unlabored breathing , clear to auscultation anteriorly HEART: S1 S2 regular rate and rhythm , ABDOMEN: Soft , no tenderness EXTREMITIES: No edema feet - Labs CBC & Chem 7: 01/20/25 05:27 01/21/25 08:26 Labs: Abnormal Lab Results - Last 24 Hours (Table) 01/20/25 01/20/25 01/21/25 Range/Units 17:29 20:26 05:51 Sodium (137-145) mmol/L Chloride (98-107) mmol/L BUN (7-17) mg/dL Creatinine (0.52-1.04) mg/dL Glucose (74-99) mg/dL POC Glucose (mg/dL) 326 H 230 H 424 H (70-110) mg/dL Calcium (8.4-10.2) mg/dL 01/21/25 01/21/25 Range/Units 08:26 11:53 Sodium 128 L (137-145) mmol/L Chloride 95 L (98-107) mmol/L BUN 32 H (7-17) mg/dL Creatinine 2.60 H (0.52-1.04) mg/dL Glucose 443 H (74-99) mg/dL POC Glucose (mg/dL) 436 H (70-110) mg/dL Calcium 8.2 L (8.4-10.2) mg/dL Microbiology - Last 24 Hours (Table) 01/18/25 15:08 Blood Culture - Preliminary Blood Assessment and Plan (1) Fever Current Visit: Yes Status: Acute Code(s): R50.9 - FEVER, UNSPECIFIED SNOMED Code(s): 424335106 (2) UTI (urinary tract infection) Current Visit: No Status: Acute Code(s): N39.0 - URINARY TRACT INFECTION, SITE NOT SPECIFIED SNOMED Code(s): 43205392 Plan: 1patient presented to hospital with generalized weakness not feeling well in this patient also have a fever positive UA with urinary symptoms concerning for symptomatic UTI in this patient who has 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 coli for the patient having started on antibiotics for recommended is a 5-day course of therapy in view of recurrent infection discussed with the nursing staff Dictation was produced using [employer] software. please excuse any grammatical, word or spelling errors. Time with Patient: Less than 30
--- NOTE | 2025-01-21 15:19 | P.PN ---
Subjective Patient is seen for follow-up for end-stage renal disease. No significant complaints today. Scheduled for hemodialysis in a.m. Maintained on antibiotics. Urine culture grew ESBL E. coli Objective - Vital Signs Vital signs: Vital Signs Temp 97.9 F 01/21/25 14:54 Pulse 68 01/21/25 14:54 Resp 16 01/21/25 14:54 BP 138/67 01/21/25 14:54 Pulse Ox 98 01/21/25 14:54 FiO2 Intake & Output 01/20/25 01/21/25 01/21/25 18:59 06:59 18:59 Intake Total 680 60 Output Total 5500 Balance -4820 60 Intake: Oral 180 60 Hemodialysis 500 Output: Hemodialysis 3000 Hemodialysis Net Amount 2500 Other: Voiding Method Toilet Toilet # Voids 3 3 2 # Bowel Movements 2 - Exam Patient is awake, comfortable, no acute distress Alert and oriented x 3 Abdomen is soft nontender Examination of the heart S1 and S2 Examination of the lungs bilateral breath sounds are heard Examination of lower extremities shows chronic skin changes chronic edema 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 - Labs CBC & Chem 7: 01/20/25 05:27 01/21/25 08:26 Labs: Abnormal Lab Results - Last 24 Hours (Table) 01/20/25 01/20/25 01/21/25 Range/Units 17:29 20:26 05:51 Sodium (137-145) mmol/L Chloride (98-107) mmol/L BUN (7-17) mg/dL Creatinine (0.52-1.04) mg/dL Glucose (74-99) mg/dL POC Glucose (mg/dL) 326 H 230 H 424 H (70-110) mg/dL Calcium (8.4-10.2) mg/dL 01/21/25 01/21/25 Range/Units 08:26 11:53 Sodium 128 L (137-145) mmol/L Chloride 95 L (98-107) mmol/L BUN 32 H (7-17) mg/dL Creatinine 2.60 H (0.52-1.04) mg/dL Glucose 443 H (74-99) mg/dL POC Glucose (mg/dL) 436 H (70-110) mg/dL Calcium 8.2 L (8.4-10.2) mg/dL Microbiology - Last 24 Hours (Table) 01/18/25 15:08 Blood Culture - Preliminary Blood Assessment and Plan Assessment: 1. End-stage renal disease on hemodialysis on Monday schedule 2. Malfunctioning dialysis catheter, Cathflo placed until Monday. Scheduled for new catheter placement on as patient had poor flows yesterday 3. Volume overload 4. Anemia of chronic disease 5. History of ESBL UTI in October 2024 6. ESBL E. coli UTI maintained on antibiotics Plan: Hemodialysis in a.m. Continue antibiotics as per ID
--- NOTE | 2025-01-21 16:01 | P.PN ---
Subjective Progress Note Date: 01/21/25 Patient was seen and examined. She reports no complaints this afternoon. Discussed with Queta RUSSO, plans for HD catheter exchange on . Dr. Sultana would like the procedure to be done inpatient which would allow the patient to get adequate IV antibiotics. BMP significant for Na 128, Cl 95, BUN 32, Cr 2.6, glu 443, Ca 8.2. Mag 1.7. General: [nontoxic], [no distress], [appears at stated age], chronically ill appearing Derm: [warm], [dry], right-sided upper chest hemodialysis catheter in place, dressing appears clean Head: [atraumatic], [normocephalic], [symmetric] Eyes: [EOMI], [no lid lag], [anicteric sclera] Mouth: [no lip lesion], [mucus membranes moist] Cardiovascular: [S1S2 reg], [no murmur] Lungs: [CTA bilateral], [no rhonchi, no rales] , [no accessory muscle use] Ext: [no gross muscle atrophy], [no edema], [no contractures] Neuro: [no focal neuro deficits] Psych: [Alert], [oriented], [appropriate affect] Generalized weakness secondary to ESBL UTI -ID consulted, urine culture ESBL, started on Ertapenem 01/20. -Blood Cx prelim neg so far -Procalcitonin positive, generalized abdominal discomfort -Fall precautions -PT OT DM with hyperglycemia -Add Levemir 10 units Q2PM. -Continue ISS with 3 units Novolog with meals -Accuchecks ACHS along with hypoglycemic precautions History of CAD with stenting, history of CABG, ACS ruled out CHF with EF 25 to 30% not in acute exacerbation -Needs to be evaluated for ICD implantation QTC prolongation -Daily ECG ordered ESRD on HD Malfunctioning hemodialysis catheter -Vascular surgery consulted, plans to replace HD catheter on -Continue HD per nephrology, History of methamphetamine use COPD not in exacerbation: Continue DuoNebs, Symbicort, Spiriva GERD: Continue Protonix Hypothyroidism: Continue Synthroid Hyperlipidemia: Continue Lipitor Hypertension: Metoprolol, Torsemide, Entresto CODE STATUS: FULL CODE DVT prophylaxis: Heparin SQ Objective - Vital Signs Vital signs: Vital Signs Temp 97.9 F 01/21/25 14:54 Pulse 68 01/21/25 14:54 Resp 16 01/21/25 14:54 BP 138/67 01/21/25 14:54 Pulse Ox 98 01/21/25 14:54 FiO2 Intake & Output 01/20/25 01/21/25 01/21/25 18:59 06:59 18:59 Intake Total 680 60 Output Total 5500 Balance -4820 60 Intake: Oral 180 60 Hemodialysis 500 Output: Hemodialysis 3000 Hemodialysis Net Amount 2500 Other: Voiding Method Toilet Toilet # Voids 3 3 2 # Bowel Movements 2 - Labs CBC & Chem 7: 01/20/25 05:27 01/21/25 08:26 Labs: Abnormal Lab Results - Last 24 Hours (Table) 01/20/25 01/20/25 01/21/25 Range/Units 17:29 20:26 05:51 Sodium (137-145) mmol/L Chloride (98-107) mmol/L BUN (7-17) mg/dL Creatinine (0.52-1.04) mg/dL Glucose (74-99) mg/dL POC Glucose (mg/dL) 326 H 230 H 424 H (70-110) mg/dL Calcium (8.4-10.2) mg/dL 01/21/25 01/21/25 Range/Units 08:26 11:53 Sodium 128 L (137-145) mmol/L Chloride 95 L (98-107) mmol/L BUN 32 H (7-17) mg/dL Creatinine 2.60 H (0.52-1.04) mg/dL Glucose 443 H (74-99) mg/dL POC Glucose (mg/dL) 436 H (70-110) mg/dL Calcium 8.2 L (8.4-10.2) mg/dL Microbiology - Last 24 Hours (Table) 01/18/25 15:08 Blood Culture - Preliminary Blood
[2025-01-21 17:20] LABS: Glucose,Whole Blood 475 mg/dL (70-110)
[2025-01-21 20:54] LABS: Glucose,Whole Blood 163 mg/dL (70-110)
[2025-01-22 06:29] LABS: Glucose,Whole Blood 214 mg/dL (70-110)
--- NOTE | 2025-01-22 09:35 | P.PN ---
Subjective Progress Note Date: 01/22/25 Principal diagnosis: Malfunctioning HD catheter Patient is seen and examined today as a follow-up. She remains afebrile. Patient is about to undergo dialysis. Plan is for tunnel catheter exchange/replacement tomorrow. Patient denies any shortness of breath or chest pain, abdominal pain nausea or vomiting. Objective - Vital Signs Vital signs: Vital Signs Temp 97.7 F 01/22/25 07:20 Pulse 60 01/22/25 07:20 Resp 17 01/22/25 07:20 BP 139/61 01/22/25 07:20 Pulse Ox 94 L 01/22/25 07:20 FiO2 Intake & Output 01/21/25 01/22/25 01/22/25 18:59 06:59 18:59 Intake Total 120 24 Balance 120 24 Intake: Oral 120 24 Other: Voiding Method Toilet # Voids 2 2 # Bowel Movements 1 - Exam General appearance: The patient is alert, oriented, appears in no acute distress. HET: Head is normocephalic and atraumatic. Pupils are equal and reactive. Neck: Supple. Chest: Right upper chest with right IJ tunneled catheter in place. No surrounding redness, swelling or drainage. Heart: Regular. Lungs: Equal expansion, normal respiratory effort. Abdomen: Soft, nondistended. Extremities: Normal skin color and turgor. No lower extremity edema. Neurological: No focal deficits. Alert and oriented. - Labs CBC & Chem 7: 01/20/25 05:27 01/21/25 08:26 Labs: Abnormal Lab Results - Last 24 Hours (Table) 01/21/25 01/21/25 01/21/25 Range/Units 11:53 17:19 20:53 POC Glucose (mg/dL) 436 H 475 H 163 H (70-110) mg/dL 01/22/25 Range/Units 06:28 POC Glucose (mg/dL) 214 H (70-110) mg/dL Microbiology - Last 24 Hours (Table) 01/18/25 15:08 Blood Culture - Preliminary Blood Assessment and Plan Assessment: 1. End-stage renal disease on hemodialysis 2. Malfunctioning tunneled catheter with poor flow but usable 3. Urinary tract infection, ESBL Plan: 1. Hemodialysis per recommendations from nephrology 2. According to dialysis nurse poor flow with inefficiency for dialysis however were able to get 2.5 L off today. Recommending exchange. 3. Antibiotics per recommendation from infectious disease for UTI treatment. Was switched to Invanz secondary to culture and sensitivities. 4. Plan for tunneled dialysis catheter exchange tomorrow. 5. N.p.o. after midnight Thank you for this consultation, we will continue to follow. The impression and plan of care has been dictated as directed. Dr. Piper Moe I performed a history and examination of this patient, discussed the same with the dictator. I agree with the dictator's note ,documented as a scribe. Any additional findings or plans will be noted.
[2025-01-22 12:19] LABS: Glucose,Whole Blood 232 mg/dL (70-110)
[2025-01-22] MEDS ORDERED: INSULIN GLARGINE (LANTUS) 100 UNIT/ML SYR SQ SCH (14:00)
--- NOTE | 2025-01-22 14:39 | P.PN ---
Subjective Progress Note Date: 01/22/25 Patient was seen and examined. Undergoing HD. Plans for HD catheter exchange tomorrow. No new labs done today. General: [nontoxic], [no distress], [appears at stated age], chronically ill appearing Derm: [warm], [dry], right-sided upper chest hemodialysis catheter in place, dressing appears clean Head: [atraumatic], [normocephalic], [symmetric] Eyes: [EOMI], [no lid lag], [anicteric sclera] Mouth: [no lip lesion], [mucus membranes moist] Cardiovascular: [S1S2 reg], [no murmur] Lungs: [CTA bilateral], [no rhonchi, no rales] , [no accessory muscle use] Ext: [no gross muscle atrophy], [no edema], [no contractures] Neuro: [no focal neuro deficits] Psych: [Alert], [oriented], [appropriate affect] Generalized weakness secondary to ESBL UTI -ID consulted, urine culture ESBL, started on Ertapenem 01/20. -Blood Cx prelim neg so far -Procalcitonin positive, generalized abdominal discomfort -Fall precautions -PT OT DM with hyperglycemia -Levemir 10 units Q2PM. -Continue ISS with 3 units Novolog with meals -Accuchecks ACHS along with hypoglycemic precautions History of CAD with stenting, history of CABG, ACS ruled out CHF with EF 25 to 30% not in acute exacerbation -Needs to be evaluated for ICD implantation QTC prolongation -Start telemetry monitoring ESRD on HD Malfunctioning hemodialysis catheter -Vascular surgery consulted, plans to replace HD catheter tomorrow. -Continue HD per nephrology, History of methamphetamine use COPD not in exacerbation: Continue DuoNebs, Symbicort, Spiriva GERD: Continue Protonix Hypothyroidism: Continue Synthroid Hyperlipidemia: Continue Lipitor Hypertension: Metoprolol, Torsemide, Entresto CODE STATUS: FULL CODE DVT prophylaxis: Heparin SQ Objective - Vital Signs Vital signs: Vital Signs Temp 97.7 F 01/22/25 07:20 Pulse 60 01/22/25 07:20 Resp 17 01/22/25 07:20 BP 139/61 01/22/25 07:20 Pulse Ox 94 L 01/22/25 07:20 FiO2 Intake & Output 01/21/25 01/22/25 01/22/25 18:59 06:59 18:59 Intake Total 120 24 240 Balance 120 24 240 Intake: Oral 120 24 240 Other: Voiding Method Toilet # Voids 2 2 # Bowel Movements 1 - Labs CBC & Chem 7: 01/20/25 05:27 01/21/25 08:26 Labs: Abnormal Lab Results - Last 24 Hours (Table) 01/21/25 01/21/25 01/22/25 Range/Units 17:19 20:53 06:28 POC Glucose (mg/dL) 475 H 163 H 214 H (70-110) mg/dL 01/22/25 Range/Units 12:17 POC Glucose (mg/dL) 232 H (70-110) mg/dL Microbiology - Last 24 Hours (Table) 01/18/25 15:08 Blood Culture - Preliminary Blood
[2025-01-22 17:50] LABS: Glucose,Whole Blood 409 mg/dL (70-110)
[2025-01-22 20:17] LABS: Glucose,Whole Blood 180 mg/dL (70-110)
--- NOTE | 2025-01-22 23:06 | P.PN ---
Subjective Patient is seen for follow-up for end-stage renal disease. No significant complaints today. Seen on hemodialysis. Maintained on antibiotics. Urine culture grew ESBL E. coli Objective - Vital Signs Vital signs: Vital Signs Temp 97.6 F 01/22/25 20:14 Pulse 68 01/22/25 21:19 Resp 17 01/22/25 20:14 BP 136/76 01/22/25 23:03 Pulse Ox 97 01/22/25 20:14 FiO2 Intake & Output 01/22/25 01/22/25 01/23/25 06:59 18:59 06:59 Intake Total 24 876 Output Total 6400 Balance 24 -5524 Intake: Oral 24 476 Hemodialysis 400 Output: Hemodialysis 3400 Hemodialysis Net Amount 3000 Other: Voiding Method Toilet # Voids 2 1 1 # Bowel Movements 1 - Exam Patient is awake, comfortable, no acute distress Alert and oriented x 3 Examination of lower extremities shows chronic skin changes chronic edema 1+ bilaterally 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 End-stage renal disease on hemodialysis on Monday schedule 2. Malfunctioning dialysis catheter, Cathflo placed to dwell for 2 days over the weekend. Scheduled for new catheter placement on as patient continues to have poor flows. 3. Volume overload 4. Anemia of chronic disease 5. History of ESBL UTI in October 2024 6. ESBL E. coli UTI maintained on antibiotics Plan: Hemodialysis on Monday schedule Continue antibiotics as per ID
--- NOTE | 2025-01-22 23:09 | P.PN ---
Subjective Progress Note Date: 01/22/25 Principal diagnosis: Recurrent cystitis Patient is a 59-year-old female with a past medical history significant for Coronary Artery Disease (CAD), Chest Pain / Angina, Heart Failure, COPD, CVA/TIA, Diabetes Mellitus, Fibromyalgia, GERD/Reflux, Hyperlipidemia, Hypertension, Liver Disease, Myocardial Infarction ([place]), Osteoarthritis (OA), Renal Disease, Thyroid Disorder, end-stage renal disease on dialysis through the right subclavian perma catheter also with history of recurrent cystitis, presented to hospital with abdominal pain urinary symptom and positive UA concerning for cystitis prompting this consultation. On today's evaluation that is 01/22/2025,the patient denies any fever or any chills, patient is breathing comfortably on room air, the patient denies chest pain shortness of breath and no significant cough, patient still complains of lower abdominal discomfort and nausea but no vomiting did have some diarrhea. No new lab has been obtained today blood pressure has been negative Objective - Vital Signs Vital signs: Vital Signs Temp 97.7 F 01/22/25 07:20 Pulse 60 01/22/25 07:20 Resp 17 01/22/25 07:20 BP 139/61 01/22/25 07:20 Pulse Ox 94 L 01/22/25 07:20 FiO2 Intake & Output 01/21/25 01/22/25 01/22/25 18:59 06:59 18:59 Intake Total 120 24 240 Balance 120 24 240 Intake: Oral 120 24 240 Other: Voiding Method Toilet # Voids 2 2 # Bowel Movements 1 - Exam GENERAL DESCRIPTION: Middle-age female up in the chair in no distress RESPIRATORY SYSTEM: Unlabored breathing , clear to auscultation anteriorly HEART: S1 S2 regular rate and rhythm , ABDOMEN: Soft , no tenderness EXTREMITIES: No edema feet - Labs CBC & Chem 7: 01/20/25 05:27 01/21/25 08:26 Labs: Abnormal Lab Results - Last 24 Hours (Table) 01/21/25 01/21/25 01/21/25 Range/Units 11:53 17:19 20:53 POC Glucose (mg/dL) 436 H 475 H 163 H (70-110) mg/dL 01/22/25 Range/Units 06:28 POC Glucose (mg/dL) 214 H (70-110) mg/dL Microbiology - Last 24 Hours (Table) 01/18/25 15:08 Blood Culture - Preliminary Blood Assessment and Plan (1) Fever Current Visit: Yes Status: Acute Code(s): R50.9 - FEVER, UNSPECIFIED SNOMED Code(s): 233801586 (2) UTI (urinary tract infection) Current Visit: No Status: Acute Code(s): N39.0 - URINARY TRACT INFECTION, SI TE NOT SPECIFIED SNOMED Code(s): 08496396 Plan: 1patient presented to hospital with generalized weakness not feeling well in this patient also have a fever positive UA with urinary symptoms concerning for symptomatic UTI in this patient who has 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 coli 4patient will be treated with a 5-day course of Invanz 500 mg daily she has been advised to increase her probiotic and yogurt intake for the diarrhea Dictation was produced using [employer] dictation software. please excuse any grammatical, word or spelling errors. Time with Patient: Less than 30
[2025-01-23 06:17] LABS: Glucose,Whole Blood 276 mg/dL (70-110)
[2025-01-23] MEDS: SODIUM CHLORIDE 0.9% 500 ML 500 ML IV ONE (07:26)
[2025-01-23] MEDS: fentaNYL (PF) 50 MCG/ML 2 ML AMP IVP ONE (07:40)
[2025-01-23] MEDS: MIDAZOLAM HCL 10 MG/10 ML VIAL IVP ONE (07:40)
[2025-01-23] MEDS: LIDOCAINE 1% INJ 10MG/ML (20 ML MDV) SQ ONE (07:44)
[2025-01-23] MEDS: ceFAZolin 2 GM in DEXTROSE 5% IN WATER 50 ML IVPB ONE (07:46)
--- NOTE | 2025-01-23 08:09 | P.OP ---
Date of Procedure: 01/23/25 Description of Procedure: DATE OF PROCEDURE: 01/23/2025 PREOPERATIVE DIAGNOSIS: Malfunctioning tunneled dialysis catheter PROCEDURE: Fluoroscopic assiste placement of a 19 cm tunneled dialysis catheter via previously tunneled catheter 3. Moderate conscious sedation times 19 minutes PROCEDURE: The patient was brought to the Supervisor Lathing placed in supine position. The bilateral necks were prepped and draped in usual sterile fashion. A preprocedure timeout was performed, all parties were in agreement. The area of the apex was anesthetized and incision was made. An decision was carried down to the level of the tunnel. It was grasped and transected. The tunneled portion was removed and discarded. The wire was placed through the lumen and the large dilator was then for hemostasis while attention was then turned towards the tunnel. The chest wall was anesthetized with 1% lidocaine plain. A small meme and the skin was made and the previously flushed catheter was tunneled through the anticipated location. Using Seldinger technique and fluoroscopic assistance, the 35 Glidewire was placed and the tract was serially dilated. The final tear-away sheath was left in place. The inner cannula and wire were removed. The catheter was placed in the tear-away sheath was removed in standard fashion. The catheter showed good positioning was final resting place in the cavoatrial junction. The catheter aspirated and flushed freely. The incision at the neck was reapproximated with interrupted sutures of 4-0 Vicryl. The catheter was sutured in place with 3-0 nylon. Dressings were placed. The patient was allowed to awaken from anesthesia and transferred to recovery in stable condition having tolerated the procedure well.
[2025-01-23 09:01] LABS: Glucose,Whole Blood 351 mg/dL (70-110)
--- NOTE | 2025-01-23 09:20 | IR ---
EXAMINATION TYPE: IR cvc insert central tunneled DATE OF EXAM: 01/23/2025 FLUOROSCOPY hemodialysis catheter insertion. 0.9min fluoro, [id number] fluoroscopic images of the AP chest are submitted. Images show stepwise placement of right anterior chest wall tunneled double-lumen hemodialysis cathet er. Catheter tips appear to be at the lower SVC level. There is underlying median sternotomy wires an d post-CABG clips and a loop recorder device along the left mid chest. [facility], , 01/23/2025 9:17 AM
[2025-01-23 09:33] VITALS: RESP 16
[2025-01-23 12:29] LABS: Glucose,Whole Blood 195 mg/dL (70-110)
--- NOTE | 2025-01-23 12:52 | P.PN ---
Subjective Progress Note Date: 01/23/25 Patient was seen and examined. Underwent fluoroscopic assisted placement of a tunneled dialysis catheter via previously tunneled catheter with Dr. Saldaña this morning. Reports discomfort at the site of surgery with some oozing. She has completed 5 days of Ertapenem so far, plans for a dose today and tomorrow prior to discharge to complete a total of 7 days. General: [nontoxic], [no distress], [appears at stated age], chronically ill appearing Derm: [warm], [dry], right-sided upper chest hemodialysis catheter in place, dressing appears clean Head: [atraumatic], [normocephalic], [symmetric] Eyes: [EOMI], [no lid lag], [anicteric sclera] Mouth: [no lip lesion], [mucus membranes moist] Cardiovascular: [S1S2 reg], [no murmur] Lungs: [CTA bilateral], [no rhonchi, no rales] , [no accessory muscle use] Ext: [no gross muscle atrophy], [no edema], [no contractures] Neuro: [no focal neuro deficits] Psych: [Alert], [oriented], [appropriate affect] Generalized weakness secondary to ESBL UTI -ID consulted, urine culture ESBL, started on Ertapenem 01/20. -Blood Cx prelim neg so far -Procalcitonin positive, generalized abdominal discomfort -Fall precautions -PT OT DM with hyperglycemia -Levemir 10 units Q2PM. -Continue ISS with 3 units Novolog with meals -Accuchecks ACHS along with hypoglycemic precautions History of CAD with stenting, history of CABG, ACS ruled out CHF with EF 25 to 30% not in acute exacerbation -Needs to be evaluated for ICD implantation QTC prolongation -Telemetry monitoring ESRD on HD Malfunctioning hemodialysis catheter -Vascular surgery consulted, underwent fluoroscopic assisted placement of a 19 cm tunneled dialysis catheter via previously tunneled catheter with Dr. Saldaña on 01/23. -Continue HD per nephrology, History of methamphetamine use COPD not in exacerbation: Continue DuoNebs, Symbicort, Spiriva GERD: Continue Protonix Hypothyroidism: Continue Synthroid Hyperlipidemia: Continue Lipitor Hypertension: Metoprolol, Torsemide, Entresto CODE STATUS: FULL CODE DVT prophylaxis: Heparin SQ Objective - Vital Signs Vital signs: Vital Signs Temp 97.5 F L 01/23/25 08:15 Pulse 58 L 01/23/25 09:15 Resp 16 01/23/25 08:15 BP 137/68 01/23/25 09:15 Pulse Ox 95 01/23/25 09:15 FiO2 Intake & Output 01/22/25 01/23/25 01/23/25 18:59 06:59 18:59 Intake Total 876 390 Output Total 6400 Balance -5524 390 Intake: IV 150 Oral 476 240 Hemodialysis 400 Output: Hemodialysis 3400 Hemodialysis Net Amount 3000 Other: Voiding Method Toilet Toilet # Voids 1 2 - Labs CBC & Chem 7: 01/20/25 05:27 01/21/25 08:26 Labs: Abnormal Lab Results - Last 24 Hours (Table) 01/22/25 01/22/25 01/23/25 Range/Units 17:48 20:15 06:16 POC Glucose (mg/dL) 409 H 180 H 276 H (70-110) mg/dL 01/23/25 01/23/25 Range/Units 08:59 12:28 POC Glucose (mg/dL) 351 H 195 H (70-110) mg/dL
--- NOTE | 2025-01-23 12:54 | P.PN ---
Subjective Patient is seen for follow-up for end-stage renal disease. No significant complaints today. Status post new right IJ permacath placement today. Patient is scheduled for hemodialysis in a.m. Objective - Vital Signs Vital signs: Vital Signs Temp 97.5 F L 01/23/25 08:15 Pulse 58 L 01/23/25 09:15 Resp 16 01/23/25 08:15 BP 137/68 01/23/25 09:15 Pulse Ox 95 01/23/25 09:15 FiO2 Intake & Output 01/22/25 01/23/25 01/23/25 18:59 06:59 18:59 Intake Total 876 390 Output Total 6400 Balance -5524 390 Intake: IV 150 Oral 476 240 Hemodialysis 400 Output: Hemodialysis 3400 Hemodialysis Net Amount 3000 Other: Voiding Method Toilet Toilet # Voids 1 2 - Exam Patient is awake, comfortable, no acute distress Alert and oriented x 3 Examination of lower extremities shows chronic skin changes chronic edema 1+ bilaterally 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 End-stage renal disease on hemodialysis on Monday schedule 2. Malfunctioning dialysis catheter, Cathflo placed to dwell for 2 days over the weekend. Status post new catheter placement today as patient continues to have poor flows. 3. Volume overload 4. Anemia of chronic disease 5. History of ESBL UTI in October 2024 6. ESBL E. coli UTI maintained on antibiotics Plan: Hemodialysis on Monday schedule Continue antibiotics as per ID
[2025-01-23] MEDS: HYDROmorphone 0.5 MG/0.5 ML SYRINGE IVP STA (13:28)
--- NOTE | 2025-01-23 15:30 | P.PN ---
Subjective Progress Note Date: 01/23/25 Principal diagnosis: Recurrent cystitis Patient is a 59-year-old female with a past medical history significant for Coronary Artery Disease (CAD), Chest Pain / Angina, Heart Failure, COPD, CVA/TIA, Diabetes Mellitus, Fibromyalgia, GERD/Reflux, Hyperlipidemia, Hypertension, Liver Disease, Myocardial Infarction ([place]), Osteoarthritis (OA), Renal Disease, Thyroid Disorder, end-stage renal disease on dialysis through the right subclavian perma catheter also with history of recurrent cystitis, presented to hospital with abdominal pain urinary symptom and positive UA concerning for cystitis prompting this consultation. On today's evaluation that is 01/23/2025,the patient remains to be afebrile, patient is on room air not requiring supplemental oxygen and denies any s hortness of breath no chest pain or cough.Patient denies having any nausea or vomiting, no abdominal pain and no diarrhea has been reported. No new lab has been obtained today blood culture has been negative Objective - Vital Signs Vital signs: Vital Signs Temp 97.5 F L 01/23/25 08:15 Pulse 58 L 01/23/25 09:15 Resp 16 01/23/25 08:15 BP 137/68 01/23/25 09:15 Pulse Ox 95 01/23/25 09:15 FiO2 Intake & Output 01/22/25 01/23/25 01/23/25 18:59 06:59 18:59 Intake Total 876 390 Output Total 6400 Balance -5524 390 Intake: IV 150 Oral 476 240 Hemodialysis 400 Output: Hemodialysis 3400 Hemodialysis Net Amount 3000 Other: Voiding Method Toilet Toilet # Voids 1 2 - Exam GENERAL DESCRIPTION: Middle-age female up in the chair in no distress RESPIRATORY SYSTEM: Unlabored breathing , clear to auscultation anteriorly HEART: S1 S2 regular rate and rhythm , ABDOMEN: Soft , no tenderness EXTREMITIES: No edema feet - Labs CBC & Chem 7: 01/20/25 05:27 01/21/25 08:26 Labs: Abnormal Lab Results - Last 24 Hours (Table) 01/22/25 01/22/25 01/22/25 Range/Units 12:17 17:48 20:15 POC Glucose (mg/dL) 232 H 409 H 180 H (70-110) mg/dL 01/23/25 01/23/25 Range/Units 06:16 08:59 POC Glucose (mg/dL) 276 H 351 H (70-110) mg/dL Assessment and Plan (1) Fever Current Visit: Yes Status: Acute Code(s): R50.9 - FEVER, UNSPECIFIED SNOMED Code(s): 922114013 (2) UTI (urinary tract infection) Current Visit: No Status: Acute Code(s): N39.0 - URINARY TRACT INFECTION, SITE NOT SPECIFIED SNOMED Code(s): 36847100 Plan: 1patient presented to hospital with generalized weakness not feeling well in this patient also have a fever positive UA with urinary symptoms concerning for symptomatic UTI in this patient who has 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 coli 4patient seem to have clinically responded to the Invanz to continue while inpatient however no need for IV Invanz on discharge Dictation was produced using [employer] dictation software. please excuse any gramm atical, word or spelling errors.
[2025-01-23] MEDS: HYDROmorphone 0.5 MG/0.5 ML SYRINGE IVP PRN (17:09)
[2025-01-23 17:12] LABS: Glucose,Whole Blood 59 mg/dL (70-110)
[2025-01-23 17:29] LABS: Glucose,Whole Blood 64 mg/dL (70-110)
[2025-01-23 17:46] LABS: Glucose,Whole Blood 76 mg/dL (70-110)
[2025-01-23 18:45] LABS: Glucose,Whole Blood 177 mg/dL (70-110)
[2025-01-23 20:45] LABS: Glucose,Whole Blood 236 mg/dL (70-110)
[2025-01-23 21:17] VITALS: TEMP 97.5
[2025-01-24 05:59] LABS: Glucose,Whole Blood 460 mg/dL (70-110)
[2025-01-24 09:50] LABS: HCT 31.1 % (37.2-46.3); HGB 10.2 g/dL (12.0-15.0); MCH 32.9 pg (27.0-32.0); MCHC 32.8 g/dL (32.0-37.0); MCV 100.3 fL (80.0-97.0); Mean Platelet Volume 9.1 fL (9.5-12.2); Platelet Count 200 10*3/uL (140-440); RDW 13.9 % (11.5-14.5)
[2025-01-24 10:11] LABS: African American GFR (CKD) 21 (>60 ml/min/1.73 sqM); Anion Gap 6 mmol/L; Blood Urea Nitrogen 27 mg/dL (7-17); Calcium 8.3 mg/dL (8.4-10.2); Carbon Dioxide 28 mmol/L (22-30); Chloride 97 mmol/L (98-107); Glucose 151 mg/dL (74-99); Non-African American GFR(CKD) 18 (>60 ml/min/1.73 sqM); Potassium 3.6 mmol/L (3.5-5.1); Sodium 131 mmol/L (137-145)
--- NOTE | 2025-01-24 10:49 | P.PN ---
Subjective Progress Note Date: 01/24/25 Principal diagnosis: Malfunctioning HD catheter Patient is seen and examined today as a follow-up. Yesterday she had exchange of her right IJ tunnel catheter. Initially she had a little bit of bleeding however pressure dressing was applied and good hemostasis was achieved. Patient currently denies any chest pain, shortness of breath or further bleeding from catheter site. She is scheduled to undergo hemodialysis today. No complications with dialysis. Objective - Vital Signs Vital signs: Vital Signs Temp 97.5 F L 01/24/25 03:17 Pulse 61 01/24/25 03:17 Resp 16 01/24/25 03:17 BP 127/57 01/24/25 03:17 Pulse Ox 93 L 01/24/25 03:17 FiO2 Intake & Output 01/23/25 01/24/25 01/24/25 18:59 06:59 18:59 Intake Total 748 Balance 748 Intake: IV 150 Oral 598 Other: Voiding Method Toilet Toilet # Voids 2 1 - Exam General appearance: The patient is alert, oriented, appears in no acute distress. HET: Head is normocephalic and atraumatic. Pupils are equal and reactive. Neck: Supple. Chest: Right upper chest with right IJ tunneled catheter in place With dressing, clean dry and intact. No surrounding redness, swelling, or bleeding. Heart: Regular. Lungs: Equal expansion, normal respiratory effort. Abdomen: Soft, nondistended. Extremities: Normal skin color and turgor. No lower extremity edema. Neurological: No focal deficits. Alert and oriented. - Labs CBC & Chem 7: 01/24/25 09:39 01/24/25 09:39 Labs: Abnormal Lab Results - Last 24 Hours (Table) 01/23/25 01/23/25 01/23/25 Range/Units 08:59 12:28 17:11 POC Glucose (mg/dL) 351 H 195 H 59 L (70-110) mg/dL 01/23/25 01/23/25 01/23/25 Range/Units 17:27 18:38 20:44 POC Glucose (mg/dL) 64 L 177 H 236 H (70-110) mg/dL 01/24/25 Range/Units 05:58 POC Glucose (mg/dL) 460 H (70-110) mg/dL Microbiology - Last 24 Hours (Table) 01/18/25 15:08 Blood Culture - Final Blood Assessment and Plan Assessment: 1. Malfunctioning tunneled catheter status post tunneled catheter exchange 2. End-stage renal disease on hemodialysis 3. Urinary tract infection, ESBL Plan: 1. Hemodialysis per recommendations from nephrology 2. Follow-up with vascular surgery in 2 to 4 weeks 3. Patient is cleared from vascular surgery for discharge. We will sign off at this time. The impression and plan of care has been dictated as directed. Dr. Montoya I performed a history and examination of this patient, discussed the same with the dictator. I agree with the dictator's note ,documented as a scribe. Any additional findings or plans will be noted.
[2025-01-24 11:44] VITALS: BMI 19.8
[2025-01-24 12:32] LABS: Glucose,Whole Blood 105 mg/dL (70-110)
[2025-01-24 12:45] VITALS: BP 137/69; PULSE 60
--- NOTE | 2025-01-24 13:39 | P.DS ---
Providers Date of admission: 01/17/25 16:29 Expected date of discharge: 01/24/25 Attending physician: Jessica Posadas MD Consults: 01/18/25 07:47 Consult Physician Routine Consulting Provider: Hilda Sultana Consult Reason/Comments: UTI, recurrent Do you want consulting provider notified?: Yes 01/18/25 07:55 Consult Physician Routine Consulting Provider: Marcelino Davies Consult Reason/Comments: esrd on hd Do you want consulting provider notified?: Yes 01/18/25 11:15 Consult Physician Routine Consulting Provider: Shauna Blum Consult Reason/Comments: Dialysis port Do you want consulting provider notified?: Yes Primary care physician: [facility] Course: 59-year-old female with PMH of CAD with ischemic cardiomyopathy with EF of 15 to 20%, COPD, ESRD on dialysis MWF via R chest catheter, diabetes mellitus, fibromyalgia, GERD, hyperlipidemia, hypertension, and osteoarthritis presented to the emergency department for generalized weakness. In the ED she underwent extensive evaluation. T 99.9F, BP 143/67, HR 80, RR 17, 94% on RA. CBC, Coag panel, CMP significant for RBC 3.01, Hg 10.2, Hct 30.8, MCV 102.3, Na 133, Cl 97, BUN 53, Cr 2.85, glu 199. Mag 1.5. Trop 0.075. Lactic acid 0.9. BNP 51072. Lipase 18. Pro-jazmin 1.52. UA large LE > 182 WBCs. Chest x-ray showed volume overload with small bilateral pleural effusions. CT head showed no acute process. Patient was started on Daptomycin and admitted for ID evaluation. UCx grew ESBL E. coli. Antibiotics switched to Ertapenem and patient completed a course of antibiotics while hospitalized. Nephrology consulted to resume HD. Her HD catheter was poorly functioning, Vascular surgery consulted, underwent fluoroscopic assisted placement of a tunneled dialysis catheter via previously tunneled catheter with Dr. Saldaña on 01/23. 01/24 Patient was seen and examined. Feeling well wanting to go home. Completed course of Ertapenem. Cleared by Vascular and ID for discharge. Underwent HD today. CBC and BMP significant for RBC 3.1, Hg 10.2, Hct 31.1, MCV 100.3, Na 131, Cl 97, BUN 27, Cr 2.72, glu 151, Ca 8.3. General: [nontoxic], [no distress], [appears at stated age], chronically ill appearing Derm: [warm], [dry], right-sided upper chest hemodialysis catheter in place, dressing appears clean Head: [atraumatic], [normocephalic], [symmetric] Eyes: [EOMI], [no lid lag], [anicteric sclera] Mouth: [no lip lesion], [mucus membranes moist] Cardiovascular: [S1S2 reg], [no murmur] Lungs: [CTA bilateral], [no rhonchi, no rales] , [no accessory muscle use] Ext: [no gross muscle atrophy], [no edema], [no contractures] Neuro: [no focal neuro deficits] Psych: [Alert], [oriented], [appropriate affect] Discharge Plan: Resume hemodialysis on MWF schedule. Follow up with PCP within 1-2 days of discharge, Cardiology and ID Dr. Sultana within 1 week of discharge. Discharge Diagnosis: ESBL UTI Diabetes Mellitus with hyperglycemia History of emphysematous cystitis with microperforations Hyponatremia ESRD on HD MWF CHF with EF of 15 to 20% History of CAD with stenting + CABG COPD not in acute exacerbation GERD Hypothyroid Hyperlipidemia Hypertension This complex discharge took 35 minutes to complete. Patient Condition at Discharge: Stable Plan - Discharge Summary New Discharge Prescriptions: New Clopidogrel [Plavix] 75 mg PO DAILY #30 tab HYDROcodone/APAP 7.5-325MG [[place] 7.5-325] 1 each PO Q6HR PRN #12 tab PRN Reason: Moderate To Severe Pain (4-10) Continue traZODone HCL [Desyrel] 50 mg PO HS Aspirin EC [Ecotrin Low Dose] 81 mg PO DAILY Atorvastatin [Lipitor] 40 mg PO DAILY Acetaminophen Tab [Tylenol] 650 mg PO Q6H PRN PRN Reason: Fever And/ Or Pain Torsemide [Demadex] 40 mg PO DAILY #30 tab Loperamide [Imodium] 2 mg PO QID PRN cap PRN Reason: Diarrhea Sacubitril/Valsartan [Entresto 24 mg-26 mg Tablet] 1 tab PO BID Sertraline [Zoloft] 25 mg PO HS tab Metoprolol Succinate (ER) [Toprol XL] 50 mg PO DAILY Tamsulosin [Flomax] 0.4 mg PO HS Ipratropium-Albuterol Nebulize [Duoneb 0.5 mg-3 mg/3 ml Soln] 3 ml INHALATION RT-Q6H PRN PRN Reason: Shortness Of Breath Or Wheezing Levothyroxine Sodium [Synthroid] 175 mcg PO DAILY Fluticasone/Umeclidin/Vilanter [Trelegy Ellipta 100-62.5-25] 1 puff INHALATION RT-DAILY Insulin Aspart [NovoLOG Flexpen] See Protocol SQ AC-TID Insulin Glargine,Hum.rec.anlog [Lantus Solostar Pen] 12 - 15 units SQ DAILY@1300 Ondansetron [Zofran] 4 mg PO Q8H PRN PRN Reason: Nausea Diphenox-Atrop 2.5-0.025 mg [Lomotil] 1 tab PO DIRECTED Ipratropium [place] [Atrovent Hfa] 2 puff INHALATION RT-Q6H PRN PRN Reason: Shortness Of Breath Discharge Medication List Levothyroxine Sodium [Synthroid] 175 mcg PO DAILY 02/02/22 [History] traZODone HCL [Desyrel] 50 mg PO HS 02/09/24 [History] Acetaminophen Tab [Tylenol] 650 mg PO Q6H PRN 06/30/24 [History] Aspirin EC [Ecotrin Low Dose] 81 mg PO DAILY 06/30/24 [History] Atorvastatin [Lipitor] 40 mg PO DAILY 06/30/24 [History] Fluticasone/Umeclidin/Vilanter [Trelegy Ellipta 100-62.5-25] 1 puff INHALATION RT-DAILY 06/30/24 [History] Torsemide [Demadex] 40 mg PO DAILY #30 tab 07/05/24 [Rx] Insulin Aspart [NovoLOG Flexpen] See Protocol SQ AC-TID 08/26/24 [History] Loperamide [Imodium] 2 mg PO QID PRN cap 09/20/24 [Rx] Sacubitril/Valsartan [Entresto 24 mg-26 mg Tablet] 1 tab PO BID 10/18/24 [History] Insulin Glargine,Hum.rec.anlog [Lantus Solostar Pen] 12 - 15 units SQ DAILY@1300 10/27/24 [History] Sertraline [Zoloft] 25 mg PO HS tab 11/05/24 [Rx] Diphenox-Atrop 2.5-0.025 mg [Lomotil] 1 tab PO DIRECTED 01/17/25 [History] Ipratropium [place] [Atrovent Hfa] 2 puff INHALATION RT-Q6H PRN 01/17/25 [History] Ipratropium-Albuterol Nebulize [Duoneb 0.5 mg-3 mg/3 ml Soln] 3 ml INHALATION RT-Q6H PRN 01/17/25 [History] Metoprolol Succinate (ER) [Toprol XL] 50 mg PO DAILY 01/17/25 [History] Ondansetron [Zofran] 4 mg PO Q8H PRN 01/17/25 [History] Tamsulosin [Flomax] 0.4 mg PO HS 01/17/25 [History] Clopidogrel [Plavix] 75 mg PO DAILY #30 tab 01/24/25 [Rx] HYDROcodone/APAP 7.5-325MG [[place] 7.5-325] 1 each PO Q6HR PRN #12 tab 01/24/25 [Rx] Follow up Appointment(s)/Referral(s): Farhat Montgomery MD [Medical Doctor] - 1 Week Papi Saavedra DO [Primary Care Provider] - 1-2 days [facility] [NON-STAFF] - 1-2 Days Hilda Sultana MD [STAFF PHYSICIAN] - 1 Week Activity/Diet/Wound Care/Special Instructions: Diet: Renal Resume Hemodialysis Monday, Monday, Monday Follow up with Dr. Sultana within 1 week of discharge. Follow up with Cardiology within 1 week of discharge. Discharge Disposition: HOME SELF-CARE
--- NOTE | 2025-01-24 15:57 | P.PN ---
Subjective Progress Note Date: 01/24/25 Principal diagnosis: Recurrent cystitis Patient is a 59-year-old female with a past medical history significant for Coronary Artery Disease (CAD), Chest Pain / Angina, Heart Failure, COPD, CVA/TIA, Diabetes Mellitus, Fibromyalgia, GERD/Reflux, Hyperlipidemia, Hypertension, Liver Disease, Myocardial Infarction ([place]), Osteoarthritis (OA), Renal Disease, Thyroid Disorder, end-stage renal disease on dialysis through the right subclavian perma catheter also with history of recurrent cystitis, presented to hospital with abdominal pain urinary symptom and positive UA concerning for cystitis prompting this consultation. On today's evaluation that is 01/24/2025, the patient continues to be afebrile, the patient is on room air and breathing comfortably, the Pt denies having any chest pain or cough, the patient denies having any abdominal pain however has been complaining of diarrhea and seem to be refusing further antibiotics Objective - Vital Signs Vital signs: Vital Signs Temp 97.5 F L 01/24/25 12:43 Pulse 60 01/24/25 12:43 Resp 16 01/24/25 12:43 BP 137/69 01/24/25 12:43 Pulse Ox 93 L 01/24/25 03:17 FiO2 Intake & Output 01/23/25 01/24/25 01/24/25 18:59 06:59 18:59 Intake Total 748 400 Output Total 4400 Balance 748 -4000 Weight 58.967 kg Intake: IV 150 Oral 598 Hemodialysis 400 Output: Hemodialysis 2400 Hemodialysis Net Amount 2000 Other: Voiding Method Toilet Toilet Toilet # Voids 2 1 - Exam GENERAL DESCRIPTION: Middle-age female up in the chair in no distress RESPIRATORY SYSTEM: Unlabored breathing , clear to auscultation anteriorly HEART: S1 S2 regular rate and rhythm , ABDOMEN: Soft , no tenderness EXTREMITIES: No edema feet - Labs CBC & Chem 7: 01/24/25 09:39 01/24/25 09:39 Labs: Abnormal Lab Results - Last 24 Hours (Table) 01/23/25 01/23/25 01/23/25 Range/Units 17:11 17:27 18:38 RBC (4.10-5.20) 10*6/uL Hgb (12.0-15.0) g/dL Hct (37.2-46.3) % MCV (80.0-97.0) fL MCH (27.0-32.0) pg MPV (9.5-12.2) fL Sodium (137-145) mmol/L Chloride (98-107) mmol/L BUN (7-17) mg/dL Creatinine (0.52-1.04) mg/dL Glucose (74-99) mg/dL POC Glucose (mg/dL) 59 L 64 L 177 H (70-110) mg/dL Calcium (8.4-10.2) mg/dL 01/23/25 01/24/25 01/24/25 Range/Units 20:44 05:58 09:39 RBC 3.10 L (4.10-5.20) 10*6/uL Hgb 10.2 L (12.0-15.0) g/dL Hct 31.1 L (37.2-46.3) % MCV 100.3 H (80.0-97.0) fL MCH 32.9 H (27.0-32.0) pg MPV 9.1 L (9.5-12.2) fL Sodium (137-145) mmol/L Chloride (98-107) mmol/L BUN (7-17) mg/dL Creatinine (0.52-1.04) mg/dL Glucose (74-99) mg/dL POC Glucose (mg/dL) 236 H 460 H (70-110) mg/dL Calcium (8.4-10.2) mg/dL 01/24/25 Range/Units 09:39 RBC (4.10-5.20) 10*6/uL Hgb (12.0-15.0) g/dL Hct (37.2-46.3) % MCV (80.0-97.0) fL MCH (27.0-32.0) pg MPV (9.5-12.2) fL Sodium 131 L (137-145) mmol/L Chloride 97 L (98-107) mmol/L BUN 27 H (7-17) mg/dL Creatinine 2.72 H (0.52-1.04) mg/dL Glucose 151 H (74-99) mg/dL POC Glucose (mg/dL) (70-110) mg/dL Calcium 8.3 L (8.4-10.2) mg/dL Microbiology - Last 24 Hours (Table) 01/18/25 15:08 Blood Culture - Final Blood Assessment and Plan (1) Fever Current Visit: Yes Status: Acute Code(s): R50.9 - FEVER, UNSPECIFIED SNOMED Code(s): 966351544 (2) UTI (urinary tract infection) Current Visit: No Status: Acute Code(s): N39.0 - URINARY TRACT INFECTION, SITE NOT SPECIFIED SNOMED Code(s): 21167220 Plan: 1patient presented to hospital with generalized weakness not feeling well in this patient also have a fever positive UA with urinary symptoms concerning for symptomatic UTI in this patient who has 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 coli for which the patient has received adequate IV Invanz during hospital stay no need for IV antibiotic on discharge Dictation was produced using [employer] dictation software. please excuse any grammatical, word or spelling errors. Time with Patient: Less than 30
--- NOTE | 2025-01-24 18:42 | P.PN ---
Subjective Patient is seen for follow-up for end-stage renal disease. No significant complaints today. Seen on hemodialysis. Tolerating treatment well. New catheter working great. Objective - Vital Signs Vital signs: Vital Signs Temp 97.5 F L 01/24/25 12:43 Pulse 60 01/24/25 12:43 Resp 16 01/24/25 12:43 BP 137/69 01/24/25 12:43 Pulse Ox 93 L 01/24/25 03:17 FiO2 Intake & Output 01/23/25 01/24/25 01/24/25 18:59 06:59 18:59 Intake Total 748 400 Output Total 4400 Balance 748 -4000 Weight 58.967 kg Intake: IV 150 Oral 598 Hemodialysis 400 Output: Hemodialysis 2400 Hemodialysis Net Amount 2000 Other: Voiding Method Toilet Toilet Toilet # Voids 2 1 2 # Bowel Movements 7 - Exam Patient is awake, comfortable, no acute distress Alert and oriented x 3 Examination of lower extremities shows chronic skin changes chronic edema 1+ bilaterally [employer] exam grossly intact - Labs CBC & Chem 7: 01/24/25 09:39 01/24/25 09:39 Labs: Abnormal Lab Results - Last 24 Hours (Table) 01/23/25 01/23/25 01/24/25 Range/Units 18:38 20:44 05:58 RBC (4.10-5.20) 10*6/uL Hgb (12.0-15.0) g/dL Hct (37.2-46.3) % MCV (80.0-97.0) fL MCH (27.0-32.0) pg MPV (9.5-12.2) fL Sodium (137-145) mmol/L Chloride (98-107) mmol/L BUN (7-17) mg/dL Creatinine (0.52-1.04) mg/dL Glucose (74-99) mg/dL POC Glucose (mg/dL) 177 H 236 H 460 H (70-110) mg/dL Calcium (8.4-10.2) mg/dL 01/24/25 01/24/25 Range/Units 09:39 09:39 RBC 3.10 L (4.10-5.20) 10*6/uL Hgb 10.2 L (12.0-15.0) g/dL Hct 31.1 L (37.2-46.3) % MCV 100.3 H (80.0-97.0) fL MCH 32.9 H (27.0-32.0) pg MPV 9.1 L (9.5-12.2) fL Sodium 131 L (137-145) mmol/L Chloride 97 L (98-107) mmol/L BUN 27 H (7-17) mg/dL Creatinine 2.72 H (0.52-1.04) mg/dL Glucose 151 H (74-99) mg/dL POC Glucose (mg/dL) (70-110) mg/dL Calcium 8.3 L (8.4-10.2) mg/dL Microbiology - Last 24 Hours (Table) 01/18/25 15:08 Blood Culture - Final Blood Assessment and Plan Assessment: 1. End-stage renal disease on hemodialysis on Monday schedule 2. Malfunctioning dialysis catheter, Cathflo placed to dwell for 2 days over the weekend. Status post new catheter placement on 01/23/2025 as patient continued to have poor flows. 3. Volume overload 4. Anemia of chronic disease 5. History of ESBL UTI in October 2024 6. ESBL E. coli UTI maintained on antibiotics Plan: Hemodialysis on Monday schedule Continue antibiotics as per ID
== END 2025-01-24 17:07 | disposition home or self-care (01) | DRG 674 ==
LOC: EC 11:35 → 6NMEDSUR 16:29 → OBSVTOIN 16:29 → 6NMEDSUR 22:42
PROVIDERS: ADMIT Student in an Organized Health Care Education/Training Program; ATTEND Student in an Organized Health Care Education/Training Program
PROC: 5A1D70Z Performance of Urinary Filtration, Intermittent, Less than 6 Hours Per Day (ICD-10-PCS; 2025-01-20)
PROC: B5181ZA Fluoroscopy of Superior Vena Cava using Low Osmolar Contrast, Guidance (ICD-10-PCS; 2025-01-23)
PROC: B548ZZA Ultrasonography of Superior Vena Cava, Guidance (ICD-10-PCS; 2025-01-23)
PROC: 0JH63XZ Insertion of Tunneled Vascular Access Device into Chest Subcutaneous Tissue and Fascia, Percutaneous Approach (ICD-10-PCS; principal; 2025-01-23 07:30)
PROC: 0JPTXXZ Removal of Tunneled Vascular Access Device from Trunk Subcutaneous Tissue and Fascia, External Approach (ICD-10-PCS; 2025-01-23 07:30)
PROC: 02HV33Z Insertion of Infusion Device into Superior Vena Cava, Percutaneous Approach (ICD-10-PCS; 2025-01-23 07:30)
DX: T82.41XA Breakdown (mechanical) of vascular dialysis catheter, initial encounter (principal); I13.2 Hypertensive heart and chronic kidney disease with heart failure and with stage 5 chronic kidney disease, or end stage renal disease; N18.6 End stage renal disease; I50.22 Chronic systolic (congestive) heart failure; D63.1 Anemia in chronic kidney disease; E11.22 Type 2 diabetes mellitus with diabetic chronic kidney disease; B96.20 Unspecified Escherichia coli [E. coli] as the cause of diseases classified elsewhere; Z99.2 Dependence on renal dialysis; J44.9 Chronic obstructive pulmonary disease, unspecified; E03.9 Hypothyroidism, unspecified; F32.A Depression, unspecified; Z16.24 Resistance to multiple antibiotics; Z16.12 Extended spectrum beta lactamase (ESBL) resistance; E11.43 Type 2 diabetes mellitus with diabetic autonomic (poly)neuropathy; E11.65 Type 2 diabetes mellitus with hyperglycemia; E11.649 Type 2 diabetes mellitus with hypoglycemia without coma; Z79.4 Long term (current) use of insulin; E11.42 Type 2 diabetes mellitus with diabetic polyneuropathy; N30.90 Cystitis, unspecified without hematuria; Z79.890 Hormone replacement therapy; E83.42 Hypomagnesemia; E78.5 Hyperlipidemia, unspecified; K21.9 Gastro-esophageal reflux disease without esophagitis; I25.5 Ischemic cardiomyopathy; F41.9 Anxiety disorder, unspecified; I25.10 Atherosclerotic heart disease of native coronary artery without angina pectoris; K31.84 Gastroparesis; M79.7 Fibromyalgia; K52.9 Noninfective gastroenteritis and colitis, unspecified; I25.2 Old myocardial infarction; Y71.2 Prosthetic and other implants, materials and accessory cardiovascular devices associated with adverse incidents; Z79.02 Long term (current) use of antithrombotics/antiplatelets; Z79.82 Long term (current) use of aspirin; Z79.899 Other long term (current) drug therapy; Z82.49 Family history of ischemic heart disease and other diseases of the circulatory system; Z86.73 Personal history of transient ischemic attack (TIA), and cerebral infarction without residual deficits; Z87.440 Personal history of urinary (tract) infections; Z87.891 Personal history of nicotine dependence; Z90.710 Acquired absence of both cervix and uterus; Z86.19 Personal history of other infectious and parasitic diseases; Z95.5 Presence of coronary angioplasty implant and graft; Z11.52 Encounter for screening for COVID-19
CPT/HCPCS: 36415; 36558; 37195; 70450; 71046; 76770; 76937; 77001; 80048; 80053; 81001; 82330; 83605; 83690; 83735; 83880; 84100; 84145; 84484; 85025; 85027; 85610; 85730; 86706; 87040; 87077; 87086; 87186; 87340; 87636; 90935; 93005; 94640; 96365; 96372; 96375; 99285

== ENCOUNTER 2025-02-04 18:49 | Emergency (ER) | payer MEDICARE ==
--- NOTE | 2025-02-04 20:16 | ED ---
General Adult HPI - General Chief complaint: Shortness of Breath Stated complaint: DIAAN Time Seen by Provider: 02/04/25 19:05 Source: patient, RN notes reviewed Limitations: no limitations - History of Present Illness Initial comments: This is a 59-year-old female with multiple comorbid conditions including COPD (occasionally oxygen dependent), ESRD on hemodialysis (M,W,F), heart failure, diabetes who is presenting to emergency department via EMS for complaints of worsening difficulty in breathing. Patient states that yesterday evening she began to feel more short of breath and has been spearing seeing a worsening productive cough. She denies fevers, chills, chest pain, heart palpitations, dizziness lightheadedness. States that she was given a breathing treatment en route via EMS and feels mildly better. Patient does still produce urine and was recently prescribed antibiotics for UTI that she finished. States that she is still having mild pain with urination - Related Data Home Medications Medication Instructions Recorded Confirmed Levothyroxine Sodium [Synthroid] 175 mcg PO DAILY 02/02/22 02/04/25 traZODone HCL [Desyrel] 50 mg PO HS 02/09/24 02/04/25 Acetaminophen Tab [Tylenol] 650 mg PO Q6H PRN 06/30/24 02/04/25 Aspirin EC [Ecotrin Low Dose] 81 mg PO DAILY 06/30/24 02/04/25 Atorvastatin [Lipitor] 40 mg PO DAILY 06/30/24 02/04/25 Fluticasone/Umeclidin/Vilanter 1 puff INHALATION RT-DAILY 06/30/24 02/04/25 [Trelegy Ellipta 100-62.5-25] Insulin Aspart [NovoLOG Flexpen] See Protocol SQ AC-TID MDD 32units 08/26/24 02/04/25 Sacubitril/Valsartan [Entresto 24 1 tab PO BID 10/18/24 02/04/25 mg-26 mg Tablet] Insulin Glargine,Hum.rec.anlog 12 - 15 units SQ DAILY@1300 10/27/24 02/04/25 [Lantus Solostar Pen] Diphenox-Atrop 2.5-0.025 mg 1 tab PO DIRECTED 01/17/25 02/04/25 [Lomotil] Ipratropium [place] [Atrovent Hfa] 2 puff INHALATION RT-Q6H PRN 01/17/25 02/04/25 Ipratropium-Albuterol Nebulize 3 ml INHALATION RT-Q6H PRN 01/17/25 02/04/25 [Duoneb 0.5 mg-3 mg/3 ml Soln] Metoprolol Succinate (ER) [Toprol 50 mg PO DAILY 01/17/25 02/04/25 XL] Ondansetron [Zofran] 4 mg PO Q8H PRN 01/17/25 02/04/25 Tamsulosin [Flomax] 0.4 mg PO HS 01/17/25 02/04/25 HYDROcodone/APAP 7.5-325MG [[place] 1 tab PO Q6HR PRN 02/04/25 02/04/25 7.5-325] Previous Rx's Medication Instructions Recorded Torsemide [Demadex] 40 mg PO DAILY #30 tab 07/05/24 Loperamide [Imodium] 2 mg PO QID PRN cap 09/20/24 Sertraline [Zoloft] 25 mg PO HS tab 11/05/24 Clopidogrel [Plavix] 75 mg PO DAILY #30 tab 01/24/25 predniSONE 50 mg PO DAILY #5 tab 02/04/25 Allergies Allergy/AdvReac Type Severity Reaction Status Date / Time Sulfa (Sulfonamide Allergy Rash/Hives Verified 02/04/25 20:19 Antibiotics) Review of Systems ROS Statement: Those systems with pertinent positive or pertinent negative responses have been documented in the HPI. ROS Other: All systems not noted in ROS Statement are negative. Past Medical History Past Medical History: Coronary Artery Disease (CAD), Chest Pain / Angina, Heart Failure, COPD, CVA/TIA, Diabetes Mellitus, Fibromyalgia, GERD/Reflux, Hyperlipidemia, Hypertension, Liver Disease, Myocardial Infarction ([place]), Osteoarthritis (OA), Renal Disease, Thyroid Disorder Additional Past Medical History / Comment(s): NEUROPATHY BILATERAL FEET, DDD NECK AND LOWER BACK, hiatal hernia, hx hepatitis as a kid, hx fractrured left wrist, hx stroke 03/03/22-pt reports no issues/residual effects. loop recorder Last Myocardial Infarction Date:: 02/2024 History of Any Multi-Drug Resistant Organisms: ESBL, MRSA Date of last positivie culture/infection: 01/17/25-ESBL; 2017-MRSA MDRO Source:: ESBL-urine; MRSA-stomach Past Surgical History: Adenoidectomy, Back Surgery, Bladder Surgery, Hysterectomy, Orthopedic Surgery, Tonsillectomy, Tubal Ligation Additional Past Surgical History / Comment(s): Debridement right foot, PICC line placed and later removed, bladder suspension, exploratory laparotomy, right great toe amputation, pins right in foot, cataracts removed, left wrist ORIF, loop heart monitor placed 02/2022. Past Anesthesia/Blood Transfusion Reactions: No Reported Reaction, Motion Sickness Additional Past Anesthesia/Blood Transfusion Reaction / Comment(s): . Type of Cardiac Device: Loop Past Psychological History: Anxiety, Depression Smoking Status: Former smoker Past Alcohol Use History: None Reported Past Drug Use History: Marijuana, Methamphetamine - Past Family History Sister(s) Family Medical History: Coronary Artery Disease (CAD) Mother Family Medical History: Pulmonary Embolus Additional Family Medical History / Comment(s): . Father Additional Family Medical History / Comment(s): at 26yrs old--accident at work General Exam Limitations: no limitations General appearance: alert, in no apparent distress ENT exam: Present: normal exam, mucous membranes moist Respiratory exam: Present: wheezes, decreased breath sounds. Absent: normal lung sounds bilaterally, respiratory distress, rales, rhonchi, stridor Cardiovascular Exam: Present: regular rate, normal rhythm, normal heart sounds. Absent: systolic murmur, diastolic murmur, rubs, gallop, clicks Extremities exam: Present: normal inspection, full ROM, normal capillary refill. Absent: tenderness, pedal edema, joint swelling, calf tenderness Skin exam: Present: warm, dry, intact, normal color. Absent: rash Course Vital Signs 02/04/25 02/04/25 02/04/25 19:06 20:49 21:00 Temperature 98.2 F Pulse Rate 73 64 74 Respiratory 24 20 24 Rate Blood Pressure 149/66 148/67 144/63 O2 Sat by Pulse 96 93 L 97 Oximetry 02/04/25 02/04/25 21:32 21:39 Temperature Pulse Rate 75 76 Respiratory Rate Blood Pressure O2 Sat by Pulse Oximetry Medical Decision Making - Medical Decision Making Was pt. sent in by a medical professional or institution (, PA, [employer], urgent care, hospital, or senior living...) When possible be specific @ -No Did you speak to anyone other than the patient for history (EMS, parent, family, police, friend...)? What history was obtained from this source @ -No Did you review nursing and triage notes (agree or disagree)? Why? @ -I reviewed and agree with nursing and triage notes Were old charts reviewed (outside hosp., previous admission, EMS record, old EKG, old radiological studies, urgent care reports/EKG's, senior living records)? Report findings @ -No old charts were reviewed Differential Diagnosis (chest pain, altered mental status, abdominal pain women, abdominal pain men, vaginal bleeding, weakness, fever, dyspnea, syncope, headache, dizziness, GI bleed, back pain, seizure, CVA, palpatations, mental health, musculoskeletal)? @ -Differential Dyspnea: Coronary syndrome, arrhythmia, tamponade, asthma, COPD, pulmonary embolism, pneumonia, pneumothorax, pulmonary effusion, anaphylaxis, diabetic ketoacidosis, flailed chest, pulmonary contusion, diaphragmatic rupture, anemia, neuromuscular, this is not meant to be an all-inclusive list. EKG interpreted by me (3pts min.). @ -Completed at 2027 sinus rhythm with a ventricular of 75, MS interval 176, QRS 146, QT 476, QTc 504. X-rays interpreted by me (1pt min.). @ Chest x-ray reveals trace bilateral pleural effusions CT interpreted by me (1pt min.). @ -None done U/S interpreted by me (1pt. min.). @ -None done What testing was considered but not performed or refused? (CT, X-rays, U/S, labs)? Why? @ -None What meds were considered but not given or refused? Why? @ -None Did you discuss the management of the patient with other professionals (professionals i.e. , PA, [employer], lab, RT, psych nurse, social organization professor, historiography teacher, teacher, admissions officer, child welfare caseworker)? Give summary @ -No Was smoking cessation discussed for >3mins.? @ -No Was critical care preformed (if so, how long)? @ -No Were there social determinants of health that impacted care today? How? (Homelessness, low income, unemployed, alcoholism, drug addiction, transportati on, low edu. Level, literacy, decrease access to med. care, retirement, rehab)? @ -No Was there de-escalation of care discussed even if they declined (Discuss DNR or withdrawal of care, Hospice)? DNR status @ -No What co-morbidities impacted this encounter? (DM, HTN, Smoking, COPD, CAD, Cancer, CVA, ARF, Chemo, Hep., AIDS, mental health diagnosis, sleep apnea, morbid obesity)? @ -None Was patient admitted / discharged? Hospital course, mention meds given and route, prescriptions, significant lab abnormalities, going to OR and other pertinent info. @ -Discharge. 59-year-old female presents emergency department for complaints of difficulty breathing. Patient oxygen saturation is at 93% on 2 L however patient states that she does occasionally wears oxygen. Blood pressure stable. Patient is in no signs of respiratory distress on my evaluation. Physical exam reveals bilateral decreased breath sounds. Laboratory testing reveals anemia of chronic disease with hemoglobin 10.6 and hematocrit 32.8. Patient's BNP level of over 28,000 is lower as compared to previous testing. Kidney function is chronic for the patient. Chest x-ray reveals bilateral pleural effusions. Patient provided with dose of Solu-Medrol and DuoNeb breathing treatment. On reevaluation patient states that she is feeling well. Patient was offered admission or was declined. She states that she is feeling well and will follow- up with her primary care provider and is scheduled for dialysis tomorrow. Retu rn parameters discussed. Case discussed with Dr. oliveros Undiagnosed new problem with uncertain prognosis? @ -No Drug Therapy requiring intensive monitoring for toxicity (Heparin, Nitro, I nsulin, Cardizem)? @ -No Were any procedures done? @ -No Diagnosis/symptom? @ -dyspnea, pleural effusion Acute, or Chronic, or Acute on Chronic? @ -acute Uncomplicated (without systemic symptoms) or Complicated (systemic symptoms)? @ -uncomplicated Side effects of treatment? @ -No Exacerbation, Progression, or Severe Exacerbation? @ -No Poses a threat to life or bodily function? How? (Chest pain, [place], [place], pneumonia, PE, COPD, DKA, ARF, appy, cholecystitis, CVA, Diverticulitis, Homicidal, Suicidal, threat to staff... and all critical care pts) @ -No - Lab Data Result diagrams: 02/04/25 20:48 02/04/25 20:48 Lab Results 0402/04/25 02/04/25 Range/Units 20:48 20:48 20:48 WBC 5.34 (4.50-10.00) 10*3/uL RBC 3.28 L (4.10-5.20) 10*6/uL Hgb 10.6 L (12.0-15.0) g/dL Hct 32.8 L (37.2-46.3) % MCV 100.0 H (80.0-97.0) fL MCH 32.3 H (27.0-32.0) pg MCHC 32.3 (32.0-37.0) g/dL Plt Count 124 L (140-440) 10*3/uL MPV 10.2 (9.5-12.2) fL Immature Gran % (Auto) 0.6 % Neutrophils % 69.4 % Lymphocytes % 20.6 % Monocytes % 6.9 % Eosinophils % 2.1 % Basophils % 0.4 % Immature Gran # 0.03 (0.00-0.04) 10*3/uL Neutrophils # 3.71 (1.80-7.70) 10*3/uL Lymphocytes # 1.10 (0.90-5.00) 10*3/uL Monocytes # 0.37 (0.20-1.00) 10*3/uL Eosinophils # 0.11 (0.04-0.35) 10*3/uL Basophils # 0.02 (0.00-0.10) 10*3/uL PT 10.5 (10.0-12.5) sec INR 0.9 (<1.2) APTT 21.6 L (22.0-30.0) sec Sodium 133 L (137-145) mmol/L Potassium 5.0 (3.5-5.1) mmol/L Chloride 96 L (98-107) mmol/L Carbon Dioxide 27 (22-30) mmol/L Anion Gap 10 mmol/L BUN 45 H (7-17) mg/dL Creatinine 3.08 H (0.52-1.04) mg/dL Est GFR (CKD-EPI)AfAm 18 (>60 ml/min/1.73 sqM) Est GFR (CKD-EPI)NonAf 16 (>60 ml/min/1.73 sqM) Glucose 256 H (74-99) mg/dL Plasma Lactic Acid Ketan (0.7-2.0) mmol/L Calcium 8.4 (8.4-10.2) mg/dL Phosphorus 5.2 H (2.5-4.5) mg/dL Magnesium 1.5 L (1.6-2.3) mg/dL Total Bilirubin 0.8 (0.2-1.3) mg/dL AST 41 H (14-36) U/L ALT 21 (4-34) U/L Alkaline Phosphatase 97 (38-126) U/L Troponin I (0.000-0.034) ng/mL NT-Pro-B Natriuret Pep 34224 pg/mL Total Protein 6.9 (6.3-8.2) g/dL Albumin 3.6 (3.5-5.0) g/dL Influenza Type A (PCR) (Not Detectd) Influenza Type B (PCR) (Not Detectd) RSV (PCR) (Not Detectd) SARS-CoV-2 (PCR) (Not Detectd) 02/04/25 02/04/25 02/04/25 Range/Units 20:48 20:48 20:48 WBC (4.50-10.00) 10*3/uL RBC (4.10-5.20) 10*6/uL Hgb (12.0-15.0) g/dL Hct (37.2-46.3) % MCV (80.0-97.0) fL MCH (27.0-32.0) pg MCHC (32.0-37.0) g/dL Plt Count (140-440) 10*3/uL MPV (9.5-12.2) fL Immature Gran % (Auto) % Neutrophils % % Lymphocytes % % Monocytes % % Eosinophils % % Basophils % % Immature Gran # (0.00-0.04) 10*3/uL Neutrophils # (1.80-7.70) 10*3/uL Lymphocytes # (0.90-5.00) 10*3/uL Monocytes # (0.20-1.00) 10*3/uL Eosinophils # (0.04-0.35) 10*3/uL Basophils # (0.00-0.10) 10*3/uL PT (10.0-12.5) sec INR (<1.2) APTT (22.0-30.0) sec Sodium (137-145) mmol/L Potassium (3.5-5.1) mmol/L Chloride (98-107) mmol/L Carbon Dioxide (22-30) mmol/L Anion Gap mmol/L BUN (7-17) mg/dL Creatinine (0.52-1.04) mg/dL Est GFR (CKD-EPI)AfAm (>60 ml/min/1.73 sqM) Est GFR (CKD-EPI)NonAf (>60 ml/min/1.73 sqM) Glucose (74-99) mg/dL Plasma Lactic Acid Ketan 1.6 (0.7-2.0) mmol/L Calcium (8.4-10.2) mg/dL Phosphorus (2.5-4.5) mg/dL Magnesium (1.6-2.3) mg/dL Total Bilirubin (0.2-1.3) mg/dL AST (14-36) U/L ALT (4-34) U/L Alkaline Phosphatase (38-126) U/L Troponin I 0.012 (0.000-0.034) ng/mL NT-Pro-B Natriuret Pep pg/mL Total Protein (6.3-8.2) g/dL Albumin (3.5-5.0) g/dL Influenza Type A (PCR) Not Detected (Not Detectd) Influenza Type B (PCR) Not Detected (Not Detectd) RSV (PCR) Not Detected (Not Detectd) SARS-CoV-2 (PCR) Not Detected (Not Detectd) Disposition Clinical Impression: Dyspnea, Pleural effusion Disposition: HOME SELF-CARE Condition: Stable Additional Instructions: Please return to the Emergency Department if symptoms worsen or any other concerns. Prescriptions: predniSONE 50 mg PO DAILY #5 tab Is patient prescribed a controlled substance at d/c from ED?: No Referrals: Papi Saavedra DO [Primary Care Provider] - 1-2 days Time of Disposition: 23:16
[2025-02-04 21:05] LABS: Basophils # (A) 0.02 10*3/uL (0.00-0.10); Basophils % (A) 0.4 %; Eosinophils # (A) 0.11 10*3/uL (0.04-0.35); Eosinophils % (A) 2.1 %; HCT 32.8 % (37.2-46.3); HGB 10.6 g/dL (12.0-15.0); Lymphocytes % (A) 20.6 %; MCH 32.3 pg (27.0-32.0); MCHC 32.3 g/dL (32.0-37.0); Mean Platelet Volume 10.2 fL (9.5-12.2); Monocytes # (A) 0.37 10*3/uL (0.20-1.00); Monocytes % (A) 6.9 %; Neutrophils # (A) 3.71 10*3/uL (1.80-7.70); Neutrophils % (A) 69.4 %; Platelet Count 124 10*3/uL (140-440); RBC 3.28 10*6/uL (4.10-5.20); RDW 13.8 % (11.5-14.5); WBC 5.34 10*3/uL (4.50-10.00)
--- NOTE | 2025-02-04 21:13 | XR ---
EXAMINATION TYPE: XR chest 2V DATE OF EXAM: 02/04/2025 9:09 PM COMPARISON: Chest radiographs from 01/17/2025 TECHNIQUE: XR chest 2V Frontal and lateral views of the chest. CLINICAL INDICATION:Female, 59 years old with history of difficulty breathing; FINDINGS: Lungs/Pleura: Trace bilateral pleural effusions with associated left lower lobe subsegmental atelecta sis. Pulmonary vascularity: Chronic pulmonary vascular prominence. Heart/mediastinum: Cardiomediastinal silhouette is prominent in size. Left atrial appendage occlusion devices present. Musculoskeletal: No acute osseous pathology. Midline sternotomy wires are noted and stable. Other findings: Loop recorder within the left anterior chest. Lines/Tubes: Right IJ approach dual-lumen hemodialysis catheter distal tip terminating at the low SVC. IMPRESSION: Trace bilateral pleural effusions. [facility] Ren Clark, , 02/04/2025 9:11 PM
[2025-02-04 21:15] VITALS: RESP 24
[2025-02-04 21:21] LABS: ALT 21 U/L (4-34); African American GFR (CKD) 18 (>60 ml/min/1.73 sqM); Albumin 3.6 g/dL (3.5-5.0); Anion Gap 10 mmol/L; Blood Urea Nitrogen 45 mg/dL (7-17); Calcium 8.4 mg/dL (8.4-10.2); Carbon Dioxide 27 mmol/L (22-30); Chloride 96 mmol/L (98-107); Glucose 256 mg/dL (74-99); INR 0.9 (<1.2); Non-African American GFR(CKD) 16 (>60 ml/min/1.73 sqM); Partial Thromboplastin Time 21.6 sec (22.0-30.0); Prothrombin Time 10.5 sec (10.0-12.5); Sodium 133 mmol/L (137-145); Total Bilirubin 0.8 mg/dL (0.2-1.3); Total Protein 6.9 g/dL (6.3-8.2)
[2025-02-04] MEDS: MORPHINE SULFATE 4 MG/ML SYRINGE IVP STA (21:25)
[2025-02-04 21:27] LABS: AST 41 U/L (14-36); Alkaline Phosphatase 97 U/L (38-126); Magnesium 1.5 mg/dL (1.6-2.3); Phosphorus 5.2 mg/dL (2.5-4.5)
[2025-02-04 21:28] LABS: NT-Pro-B-Type Natriuretic Pept 28700 pg/mL
[2025-02-04] MEDS: ACETAMINOPHEN TAB 500 MG TAB PO STA (21:30)
[2025-02-04] MEDS: methylPREDNISolone SOD SUCCI 125 MG/2 ML VIAL IV STA (21:30)
[2025-02-04] MEDS: IPRATROPIUM-ALBUTEROL 3 ML NEB INHALATION STA (21:31)
[2025-02-04 21:41] LABS: Influenza A Not Detected (Not Detectd); Influenza B Not Detected (Not Detectd); RSV Not Detected (Not Detectd)
[2025-02-04 23:59] VITALS: BP 134/57; PULSE 74; TEMP 97.9
== END 2025-02-04 23:59 | disposition home or self-care (01) ==
LOC: EC 18:49
DX: R06.00 Dyspnea, unspecified (principal); J90 Pleural effusion, not elsewhere classified; Z87.891 Personal history of nicotine dependence; Z88.2 Allergy status to sulfonamides
CPT/HCPCS: 94640; 93005; 83880; 80053; 83605; 83735; 84100; 84484; 85025; 85610; 85730; 87636; 71046; 99285; 96374; J2919; 36415

== ENCOUNTER 2025-02-14 07:51 | Day surgery (SDC) | payer MEDICARE ==
[2025-02-13 10:27] VITALS: BMI 20.9
[~2025-02-14 07:51] MED LIST changes: -BUPIVACAIN-EPI 0.5%-1:200,000 30 ML VIAL SQ ONE; -DEXAMETHASONE SOD PHOSPHATE 10 MG/ML 1 ML VIAL IV ONE; -HYDROmorphone (PF) 1 MG/ML ONE; -INSULIN ASPART (NovoLOG) 100 UNIT/ML VIAL SQ ONE; -KETOROLAC 30 MG/ML 1 ML VIAL ONE; -LACTATED RINGERS 1,000 ML IV ONE; -LIDOCAINE 1% 20 ML VIAL (10MG/ML) FOR IV START INTRADERMA ONE; -LIDOCAINE 1% INJ 10MG/ML (20 ML MDV) ONE; -MIDAZOLAM (PF) 2 MG/2 ML VIAL IV PRN; -MIDAZOLAM 2 MG/2 ML VIAL ONE; -ONDANSETRON 4 MG/2 ML VIAL IVP ONE; -ONDANSETRON 4 MG/2 ML VIAL ONE; -PROPOFOL 10 MG/ML 20 ML VIAL IV ONE; -ROCURONIUM BROMIDE 10 MG/ML 10 ML VIAL IV ONE; -ROPIVACAINE 5 MG/ML 30 ML VIAL ONE; -SCOPOLAMINE 1.5MG/72HR PATCH TRANSDERM ONE; -SODIUM CHLORIDE 0.9% 50 ML with ceFAZolin 2,000 MG IV ONE; -SUCCINYLCHOLINE CHLORIDE 100 MG/5 ML SYR IV ONE; -ceFAZolin IN SWFI 2 GM/20 ML SYRINGE IVP ONE; -fentaNYL (PF) 50 MCG/ML 2 ML AMP IV ONE; -fentaNYL (PF) 50 MCG/ML 2 ML AMP ONE
[2025-02-14] MEDS: IV FLUID CONTINUATION 1,000 ML IV ONE (08:12)
[2025-02-14 08:38] LABS: Glucose,Whole Blood 194 mg/dL (70-110)
[2025-02-14] MEDS: ONDANSETRON 4 MG/2 ML VIAL IVP ONE (08:47)
[2025-02-14] MEDS: IV FLUID CONTINUATION 500 ML IV ONE (08:48)
[2025-02-14] MEDS: DEXAMETHASONE SOD PHOSPHATE 4 MG/ML 1 ML VIAL IV ONE (08:55)
[2025-02-14] MEDS: SCOPOLAMINE 1 MG/72 HR PATCH TRANSDERM ONE (08:55)
[2025-02-14] MEDS: MIDAZOLAM 2 MG/2 ML VIAL IV PRN (09:23)
[2025-02-14] MEDS: fentaNYL (PF) 50 MCG/ML 2 ML AMP IVP STA (09:23)
[2025-02-14 09:46] VITALS: RESP 16; TEMP 97.8
[2025-02-14] MEDS ORDERED: HEPARIN SODIUM,PORCINE 10,000 UNIT/ML 1 ML VIAL ONE (09:55)
[2025-02-14] MEDS ORDERED: SODIUM CHLORIDE 0.9% (PF) 10 ML VIAL ONE (09:55)
[2025-02-14] MEDS ORDERED: ROPIVACAINE 5 MG/ML 30 ML VIAL ONE (09:55)
[2025-02-14] MEDS ORDERED: DEXAMETHASONE SOD PHOSPHATE 4 MG/ML 1 ML VIAL ONE (09:55)
[2025-02-14] MEDS ORDERED: fentaNYL (PF) 50 MCG/ML 2 ML AMP ONE (09:55)
[2025-02-14] MEDS ORDERED: MIDAZOLAM 2 MG/2 ML VIAL ONE (09:55)
[2025-02-14] MEDS ORDERED: PROPOFOL 10 MG/ML 20 ML VIAL IV ONE (09:55)
[2025-02-14] MEDS ORDERED: diphenhydrAMINE 50 MG/ML 1 ML VIAL ONE (09:55)
[2025-02-14] MEDS: INSULIN LISPRO (HumaLOG) 100 UNIT/ML 10 mL VL SQ ONE (09:58)
[2025-02-14] MEDS: ceFAZolin 2 GM in DEXTROSE 5% IN WATER 50 ML IVPB PRN (10:00)
[2025-02-14] MEDS: THROMBIN (BOVINE) 5,000 UNIT VIAL MISCELLANE ONE (10:24)
[2025-02-14] MEDS: HEPARIN SODIUM,PORCINE (1 ML) 2,000 UNIT in SODIUM CHLORIDE 0.9% 500 ML 500 ML IRRIGATION ONE (10:24)
[2025-02-14] MEDS: ceFAZolin 2 GM in SODIUM CHLORIDE 0.9% 500 ML 500 ML IRRIGATION ONE (10:25)
--- NOTE | 2025-02-14 12:18 | P.OP ---
Date of Procedure: 02/14/25 Preoperative Diagnosis: End-stage renal disease requiring hemodialysis. Postoperative Diagnosis: Same. Procedure(s) Performed: Creation of the left forearm AV loop graft between the ulnar artery and brachial vein Anesthesia: regional Surgeon: Devin Montoya Estimated Blood Loss (ml): 15 Pathology: none sent Condition: stable Disposition: no change Indications for Procedure: Patient is a 59-year-old female with a history of renal insufficiency requiring hemodialysis. She is currently being dialyzed via a tunneled hemodialysis catheter. She now presents for creation of AV graft. The patient is right-hand dominant. Preop vein mapping demonstrated the patient had no real usable vein for AV fistula creation and thus is offered AV dialysis graft. The procedure, risk and benefits were discussed with the patient. All questions were answered to patient's satisfaction. Consent form was signed. Description of Procedure: Patient was brought the op room placed in supine position after having received left axillary block. Patient's left upper extremity was sterilely prepped and draped in the usual manner. Patient received intravenously administered prophylactic antibiotics in the perioperative phase. The elbow crease was identified and approximately 1.5 cm distal to is a transverse skin incision was made carried down through the subcutaneous tissues. Hemostasis was achieved using electrocautery. Incision was deepened through the subcutaneous tissues. The distal brachial artery was identified and in the bifurcation of the artery into the radial ulnar segments were identified. The ulnar artery was dissected free of investing tissues proximally and encircled with Vesseloops. The brachial vein was identified and dissected free of investing tissues. The vein appeared adequate for outflow purposes. It was encircled with Vesseloops both proximally and distally. Counterincision at the distal forearm area was made through which a 4 to 7 mm PTFE graft was tunneled. The 4 mm end of the graft was positioned for arterial inflow and the larger in was position for venous outflow. The patient was systemically heparinized after adequate circulation time the Vesseloops ulnar artery were drawn closed and a longitudinal arteriotomy was created and extended with Ortiz Metzenbaums scissors to a total length of 5 mm. Excellent inflow was identified. The graft was spatulated match arteriotomy and end-to-side anastomosis was created between the artery and the graft with 6-0 Prolene suture. Just prior to completion of the anastomotic line the artery was flushed and no thrombus was retrieved. The anastomotic line was completed and flow restored through the artery and into the graft. Excellent pulsatile flow was identified within the graft and the graft was occluded. The venous end of the graft was cut to the appropriate length after longitudinal venotomy was made and the vein after the vein was controlled by tightening the Vesseloops. The graft was spatulated match arteriotomy and end-to-side anastomosis between the graft and the vein was created with 6-0 Prolene suture. Just prior to completion anastomotic line the graft was flushed and no thrombus was retrieved and this also served to remove any air from the graft. The anastomotic line was completed and flow restored to the through the graft into the venous outflow tract. Excellent flow through the outflow tract was identified and a good pulse was identified within the graft. Both wounds were inspected for hemostasis and this was judged to be adequate. Both wounds were then irrigated with with antibiotic containing solution and closed in 2 layers with 3-0 Vicryl for the deeper tissues and 4-0 Monocryl placed in running intradermal fashion. Appropriate dressings were applied. Patient tolerated the procedure well. Palpable radial pulse was noted at the end of the case. She was taken the recovery area in satisfactory and stable condition. Plan - Discharge Summary Discharge Rx Participant: No New Discharge Prescriptions: New HYDROcodone/APAP 5-325MG [[place] 5-325] 1 tab PO Q6HR PRN 3 Days #12 tab PRN Reason: Pain Scale 7 To 10 No Action traZODone HCL [Desyrel] 50 mg PO HS Aspirin EC [Ecotrin Low Dose] 81 mg PO DAILY Atorvastatin [Lipitor] 40 mg PO DAILY Acetaminophen Tab [Tylenol] 650 mg PO Q6H PRN PRN Reason: Fever And/ Or Pain Torsemide [Demadex] 40 mg PO DAILY #30 tab Loperamide [Imodium] 2 mg PO QID PRN cap PRN Reason: Diarrhea Sacubitril/Valsartan [Entresto 24 mg-26 mg Tablet] 1 tab PO BID Sertraline [Zoloft] 25 mg PO HS tab Metoprolol Succinate (ER) [Toprol XL] 50 mg PO DAILY Tamsulosin [Flomax] 0.4 mg PO HS Ipratropium-Albuterol Nebulize [Duoneb 0.5 mg-3 mg/3 ml Soln] 3 ml INHALATION RT-Q6H PRN PRN Reason: Shortness Of Breath Or Wheezing Clopidogrel [Plavix] 75 mg PO DAILY #30 tab Levothyroxine Sodium [Synthroid] 175 mcg PO DAILY Fluticasone/Umeclidin/Vilanter [Trelegy Ellipta 100-62.5-25] 1 puff INHALATION RT-DAILY Insulin Aspart [NovoLOG Flexpen] See Protocol SQ AC-TID MDD 32units Insulin Glargine,Hum.rec.anlog [Lantus Solostar Pen] 12 - 15 units SQ DAILY@1300 Ondansetron [Zofran] 4 mg PO Q8H PRN PRN Reason: Nausea Diphenox-Atrop 2.5-0.025 mg [Lomotil] 1 tab PO DIRECTED Ipratropium [place] [Atrovent Hfa] 2 puff INHALATION RT-Q6H PRN PRN Reason: Shortness Of Breath HYDROcodone/APAP 7.5-325MG [[place] 7.5-325] 1 tab PO Q6HR PRN PRN Reason: Moderate To Severe Pain (4-10) predniSONE 50 mg PO DAILY #5 tab Discharge Medication List Levothyroxine Sodium [Synthroid] 175 mcg PO DAILY 02/02/22 [History] traZODone HCL [Desyrel] 50 mg PO HS 02/09/24 [History] Acetaminophen Tab [Tylenol] 650 mg PO Q6H PRN 06/30/24 [History] Aspirin EC [Ecotrin Low Dose] 81 mg PO DAILY 06/30/24 [History] Atorvastatin [Lipitor] 40 mg PO DAILY 06/30/24 [History] Fluticasone/Umeclidin/Vilanter [Trelegy Ellipta 100-62.5-25] 1 puff INHALATION RT-DAILY 06/30/24 [History] Torsemide [Demadex] 40 mg PO DAILY #30 tab 07/05/24 [Rx] Insulin Aspart [NovoLOG Flexpen] See Protocol SQ AC-TID MDD 32units 08/26/24 [History] Loperamide [Imodium] 2 mg PO QID PRN cap 09/20/24 [Rx] Sacubitril/Valsartan [Entresto 24 mg-26 mg Tablet] 1 tab PO BID 10/18/24 [History] Insulin Glargine,Hum.rec.anlog [Lantus Solostar Pen] 12 - 15 units SQ DAILY@1300 10/27/24 [History] Sertraline [Zoloft] 25 mg PO HS tab 11/05/24 [Rx] Diphenox-Atrop 2.5-0.025 mg [Lomotil] 1 tab PO DIRECTED 01/17/25 [History] Ipratropium [place] [Atrovent Hfa] 2 puff INHALATION RT-Q6H PRN 01/17/25 [History] Ipratropium-Albuterol Nebulize [Duoneb 0.5 mg-3 mg/3 ml Soln] 3 ml INHALATION RT-Q6H PRN 01/17/25 [History] Metoprolol Succinate (ER) [Toprol XL] 50 mg PO DAILY 01/17/25 [History] Ondansetron [Zofran] 4 mg PO Q8H PRN 01/17/25 [History] Tamsulosin [Flomax] 0.4 mg PO HS 01/17/25 [History] Clopidogrel [Plavix] 75 mg PO DAILY #30 tab 01/24/25 [Rx] HYDROcodone/APAP 7.5-325MG [[place] 7.5-325] 1 tab PO Q6HR PRN 02/04/25 [History] predniSONE 50 mg PO DAILY #5 tab 02/04/25 [Rx] HYDROcodone/APAP 5-325MG [[place] 5-325] 1 tab PO Q6HR PRN 3 Days #12 tab 02/14/25 [Rx]
[2025-02-14 12:51] VITALS: PULSE 69
[2025-02-14 13:05] VITALS: BP 162/76
--- NOTE | 2025-02-14 15:48 | P.ANPRN ---
Procedure Note - Anesthesia - Nerve Block Performed Left Axillary Single Time Out Performed: Yes (921) Date of Procedure: 02/14/25 Procedure Start Time: : Procedure Stop Time: Location of Patient: PreOp Indication: Acute Post-Operative Pain, Requested by Surgeon Specifically requested for management of pain by DrStephany: Devin Montoya Sedation Type: Sedate with meaningful contact maintained Preparation: Sterile Prep Position: Supine (arm over) Catheter: None Needle Types: Pajunk Needle Gauge: 21 Ultrasound used to visualize needle placement: Yes Ultrasound used to observe medication spread: Yes Injectate: 0.5% Ropivacaine (see comment for volume) ((7.5cc+5cc nacl pf+decadron 2mg)each of 4 nerves.) Blood Aspirated: No Pain Paresthesia on Injection Noted: No Resistance on Injection: Normal Image Stored and Saved: Yes Events: Uneventful and Well Tolerated
== END 2025-02-14 13:30 | disposition home or self-care (01) ==
LOC: OR 07:51
PROVIDERS: ATTEND Surgery
DX: N18.6 End stage renal disease (principal); I11.0 Hypertensive heart disease with heart failure; I50.9 Heart failure, unspecified; I25.10 Atherosclerotic heart disease of native coronary artery without angina pectoris; I25.2 Old myocardial infarction; J44.9 Chronic obstructive pulmonary disease, unspecified; F41.9 Anxiety disorder, unspecified; E78.5 Hyperlipidemia, unspecified; E07.9 Disorder of thyroid, unspecified; E11.40 Type 2 diabetes mellitus with diabetic neuropathy, unspecified; G47.33 Obstructive sleep apnea (adult) (pediatric); F32.A Depression, unspecified; K21.9 Gastro-esophageal reflux disease without esophagitis; M79.7 Fibromyalgia; M54.50 Low back pain, unspecified; Z86.73 Personal history of transient ischemic attack (TIA), and cerebral infarction without residual deficits; Z99.2 Dependence on renal dialysis; Z87.891 Personal history of nicotine dependence; Z01.818 Encounter for other preprocedural examination; Z88.2 Allergy status to sulfonamides; Z79.02 Long term (current) use of antithrombotics/antiplatelets; Z79.82 Long term (current) use of aspirin; Z79.899 Other long term (current) drug therapy
CPT/HCPCS: 64417; 84132; 36830; L8670; J2250; J1200; J1644 ×2; J1100; J0690; J2405; J3010; J2795; J2704

== ENCOUNTER 2025-04-10 11:18 | Day surgery (SDC) | payer MEDICARE ==
[2025-04-08 12:09] VITALS: BMI 19.6
[~2025-04-10 11:18] MED LIST changes: +LIDOCAINE 1% (10MG/ML) FOR IV START INTRADERMA PRN
[2025-04-10] MEDS: IV FLUID CONTINUATION 1,000 ML IV ONE (11:29)
[2025-04-10] MEDS: SODIUM CHLORIDE 0.9% 500 ML 500 ML IV ONE ×2 (11:29→14:15)
[2025-04-10 11:48] LABS: Glucose,Whole Blood 313 mg/dL (70-110)
[2025-04-10 11:52] VITALS: RESP 16
[2025-04-10] MEDS: ONDANSETRON 4 MG/2 ML VIAL IVP ONE (11:58)
[2025-04-10] MEDS: INSULIN LISPRO (HumaLOG) 100 UNIT/ML 10 mL VL SQ STA (12:05)
[2025-04-10] MEDS ORDERED: INSULIN LISPRO (HumaLOG) 100 UNIT/ML 10 mL VL SQ SCH (12:30)
[2025-04-10] MEDS: MIDAZOLAM 2 MG/2 ML VIAL IV ONE (12:31)
[2025-04-10 12:43] LABS: Glucose,Whole Blood 319 mg/dL (70-110)
[2025-04-10] MEDS ORDERED: KETAMINE HCL IN 0.9 % NACL 50 MG/5 ML SYRINGE ONE (12:46)
[2025-04-10] MEDS ORDERED: PROPOFOL 10 MG/ML 20 ML VIAL IV ONE (12:46)
[2025-04-10] MEDS ORDERED: GLYCOPYRROLATE 0.2 MG/ML 2 ML VIAL ONE (12:46)
[2025-04-10] MEDS ORDERED: LIDOCAINE 1% INJ 10MG/ML (20 ML MDV) ONE (12:46)
[2025-04-10] MEDS ORDERED: DEXAMETHASONE SOD PHOSPHATE 4 MG/ML 1 ML VIAL ONE (12:46)
[2025-04-10] MEDS ORDERED: MIDAZOLAM 2 MG/2 ML VIAL ONE (12:46)
[2025-04-10] MEDS ORDERED: ROPIVACAINE 5 MG/ML 30 ML VIAL ONE (12:46)
[2025-04-10] MEDS ORDERED: HEPARIN SODIUM,PORCINE 5,000 UNIT/ML 1 ML VIAL ONE (12:46)
[2025-04-10] MEDS: THROMBIN (BOVINE) 5,000 UNIT VIAL TOPICAL ONE (13:22)
[2025-04-10] MEDS: ceFAZolin 2 GM in SODIUM CHLORIDE 0.9% 500 ML 500 ML IRRIGATION ONE (13:26)
[2025-04-10] MEDS: HEPARIN SODIUM,PORCINE (1 ML) 2,000 UNIT in SODIUM CHLORIDE 0.9% 500 ML 500 ML IRRIGATION ONE (13:27)
[2025-04-10 13:30] LABS: Glucose,Whole Blood 274 mg/dL (70-110)
--- NOTE | 2025-04-10 14:34 | P.OP ---
Date of Procedure: 04/10/25 Preoperative Diagnosis: End-stage renal disease. Postoperative Diagnosis: Same. Procedure(s) Performed: Left brachial artery to axillary vein AV graft utilizing cryopreserved vein. Anesthesia: regional Surgeon: Devin Montoya Estimated Blood Loss (ml): 10 Urine output (ml): 0 Pathology: none sent Condition: stable Disposition: no change Indications for Procedure: Patient is a 59-year-old female with a history of end-stage renal disease currently being dialyzed via a tunneled hemodialysis catheter. She had previously undergone a left forearm loop AV graft however this failed. Failure was thought to be due to poor outflow due to the patient's small negative venous size. Patient is now offered a brachial artery to axillary vein AV graft with CryoVein as her [place] vein is too small for conduit purposes. The procedure, risk and benefits were discussed with the patient. Additionally we discussed the use of a PTFE conduit. Patient wished to proceed with cryopreserved vein graft. Description of Procedure: Patient was brought the op room placed in the spine position after having received regional anesthesia delivered by the department of anesthesiology. She received intravenously administered prophylactic antibiotics in the perioperative phase. The left upper extremity was sterilely prepped draped in the usual manner. After testing the skin for block and the block was found to be adequate with complete pain control skin incision was made just above the elbow crease overlying the brachial artery. The incision was deepened through the subcutaneous tissues. Hemostasis was achieved using electrocautery. Dissection was deepened in the brachial artery was identified and dissected free of investing tissues and encircled with Vesseloops. Antibiotic moistened gauze was placed within the wound. Attention was turned to the axillary area where a skin incision was made overlying the axillary vein. The incision was deepened through the subcutaneous tissues. The vein was identified, dissected free of investing tissues and encircled with Vesseloops both proximally distally. The cryopreserved vein which had been appropriately prepared for surgery was tunneled between the 2 incisions and a gentle arcing pattern. The patient received 3000 units of heparin. Vesseloops surrounding the brachial artery were drawn closed and a linear arteriotomy was made in the artery. It was extended to a total distance of 5 mm. Excellent inflow and good backbleeding was identified. The vein was spatulated match the arteriotomy end-to-side anastomosis between the vein and the artery. The artery was flushed and no thrombus was retrieved. The anastomotic line was then completed and flow restored through the brachial artery into the vein graft. Excellent pulsatile flow was identified. The vein was then occluded. Flow was then restored into the remainder of the [place] arterial tree and excellent radial artery pulse was noted. Attention was turned to the axillary incision. The vein was cut the appropriate length and care was taken avoid any twisting. Vesseloops were drawn closed and a linear venotomy was made and extended with Ortiz Metzenbaums scissors. End-to-side anastomosis between the cryopreserved vein and the axillary vein was completed with 6-0 Prolene suture. Just prior to completion anastomotic line the vein was backbled and the cryopreserved vein was flushed and no thrombus was retrieved. The anastomotic line was completed and flow was restored through the vein into the axillary vein. Excellent flow characteristics including thrill and pulse were noted within the graft and distal outflow track. Both wounds were inspected for hemostasis. 1 bleeding point along the venous anastomotic line was identified and controlled with 6-0 Prolene suture. Both wounds were irrigated with antibiotic-containing solution. Deep tissues were closed with 3-0 Vicryl and dermis was closed with 4-0 Monocryl placed in running intradermal fashion at each wound site. Appropriate dressings were applied. Patient tolerated the procedure well and was taken to the recovery area satisfactory in stable condition. Plan - Discharge Summary Discharge Rx Participant: Yes New Discharge Prescriptions: New HYDROcodone/APAP 5-325MG [[place] 5-325] 1 tab PO Q6HR PRN 3 Days #12 tab PRN Reason: Pain Scale 6 To 8 No Action traZODone HCL [Desyrel] 50 mg PO HS Aspirin EC [Ecotrin Low Dose] 81 mg PO DAILY Atorvastatin [Lipitor] 40 mg PO QAM Acetaminophen Tab [Tylenol] 650 mg PO Q6H PRN PRN Reason: Fever And/ Or Pain Loperamide [Imodium] 2 mg PO QID PRN cap PRN Reason: Diarrhea Sacubitril/Valsartan [Entresto 24 mg-26 mg Tablet] 1 tab PO BID Sertraline [Zoloft] 25 mg PO HS tab Metoprolol Succinate (ER) [Toprol XL] 50 mg PO QAM Ipratropium-Albuterol Nebulize [Duoneb 0.5 mg-3 mg/3 ml Soln] 3 ml INHALATION RT-Q6H PRN PRN Reason: Shortness Of Breath Or Wheezing Clopidogrel [Plavix] 75 mg PO QAM Torsemide [Demadex] 40 mg PO HS Levothyroxine Sodium [Synthroid] 175 mcg PO QAM Fluticasone/Umeclidin/Vilanter [Trelegy Ellipta 100-62.5-25] 1 puff INHALATION RT-DAILY Insulin Aspart [NovoLOG Flexpen] See Protocol SQ AC-TID MDD 32units Insulin Glargine,Hum.rec.anlog [Lantus Solostar Pen] 12 - 15 units SQ DAILY@1000 Ondansetron [Zofran] 4 mg PO Q8H PRN PRN Reason: Nausea Diphenox-Atrop 2.5-0.025 mg [Lomotil] 1 tab PO DIRECTED Ipratropium [place] [Atrovent Hfa] 2 puff INHALATION RT-Q6H PRN PRN Reason: Shortness Of Breath HYDROcodone/APAP 7.5-325MG [[place] 7.5-325] 1 tab PO Q6HR PRN PRN Reason: Moderate To Severe Pain (4-10) Discharge Medication List Levothyroxine Sodium [Synthroid] 175 mcg PO QAM 02/02/22 [History] traZODone HCL [Desyrel] 50 mg PO HS 02/09/24 [History] Acetaminophen Tab [Tylenol] 650 mg PO Q6H PRN 06/30/24 [History] Aspirin EC [Ecotrin Low Dose] 81 mg PO DAILY 06/30/24 [History] Atorvastatin [Lipitor] 40 mg PO QAM 06/30/24 [History] Fluticasone/Umeclidin/Vilanter [Trelegy Ellipta 100-62.5-25] 1 puff INHALATION RT-DAILY 06/30/24 [History] Insulin Aspart [NovoLOG Flexpen] See Protocol SQ AC-TID MDD 32units 08/26/24 [History] Loperamide [Imodium] 2 mg PO QID PRN cap 09/20/24 [Rx] Sacubitril/Valsartan [Entresto 24 mg-26 mg Tablet] 1 tab PO BID 10/18/24 [History] Insulin Glargine,Hum.rec.anlog [Lantus Solostar Pen] 12 - 15 units SQ DAILY@1000 10/27/24 [History] Sertraline [Zoloft] 25 mg PO HS tab 11/05/24 [Rx] Diphenox-Atrop 2.5-0.025 mg [Lomotil] 1 tab PO DIRECTED 01/17/25 [History] Ipratropium [place] [Atrovent Hfa] 2 puff INHALATION RT-Q6H PRN 01/17/25 [History] Ipratropium-Albuterol Nebulize [Duoneb 0.5 mg-3 mg/3 ml Soln] 3 ml INHALATION RT-Q6H PRN 01/17/25 [History] Metoprolol Succinate (ER) [Toprol XL] 50 mg PO QAM 01/17/25 [History] Ondansetron [Zofran] 4 mg PO Q8H PRN 01/17/25 [History] HYDROcodone/APAP 7.5-325MG [[place] 7.5-325] 1 tab PO Q6HR PRN 02/04/25 [History] Clopidogrel [Plavix] 75 mg PO QAM 04/08/25 [History] Torsemide [Demadex] 40 mg PO HS 04/08/25 [History] HYDROcodone/APAP 5-325MG [[place] 5-325] 1 tab PO Q6HR PRN 3 Days #12 tab 04/10/25 [Rx]
[2025-04-10 14:49] VITALS: TEMP 97.3
[2025-04-10 14:53] LABS: Glucose,Whole Blood 176 mg/dL (70-110)
[2025-04-10 14:58] VITALS: PULSE 65
[2025-04-10] MEDS: IV FLUID CONTINUATION 500 ML IV ONE (15:17)
[2025-04-10 15:40] VITALS: BP 140/75
--- NOTE | 2025-04-11 06:51 | P.ANPRN ---
Procedure Note - Anesthesia - Nerve Block Performed Left Supraclavicular Single Time Out Performed: Yes Date of Procedure: 04/10/25 Procedure Start Time: 12:24 Procedure Stop Time: : Location of Patient: PreOp Indication: Acute Post-Operative Pain, Requested by Surgeon Sedation Type: Sedate with meaningful contact maintained Preparation: Sterile Prep Position: Supine Needle Types: [place]ajunk Needle Gauge: 21 Ultrasound used to visualize needle placement: Yes Ultrasound used to observe medication spread: Yes Blood Aspirated: No Pain Paresthesia on Injection Noted: No Resistance on Injection: Normal Image Stored and Saved: Yes Events: Uneventful and Well Tolerated (Ropivacaine 0.5% 20 cc)
== END 2025-04-10 15:54 ==
LOC: OR 11:18
PROVIDERS: ATTEND Surgery
DX: I13.2 Hypertensive heart and chronic kidney disease with heart failure and with stage 5 chronic kidney disease, or end stage renal disease (principal); N18.6 End stage renal disease; I50.9 Heart failure, unspecified; G89.18 Other acute postprocedural pain; J44.9 Chronic obstructive pulmonary disease, unspecified; G62.9 Polyneuropathy, unspecified; Z79.02 Long term (current) use of antithrombotics/antiplatelets; Z79.82 Long term (current) use of aspirin; Z79.899 Other long term (current) drug therapy; Z86.73 Personal history of transient ischemic attack (TIA), and cerebral infarction without residual deficits; Z79.51 Long term (current) use of inhaled steroids
CPT/HCPCS: 36830; 64415; J2250; J1644; J1100; J0690; J2405; J2003; J2795; J2704; J1596